=== PATIENT | male | born 1955 | race Caucasian/White ===

== ENCOUNTER → 2018-01-22 11:44 | Outpatient (CLI) | payer BC, SELFPAY ==
[2018-01-22 12:42] LABS: HCT 37.3 % (40.0-50.0); HGB 12.4 g/dL (13.5-17.5); Mean Corp. HGB Concentration 33.2 g/dL (32.0-36.0); Mean Corpuscular Hemoglobin 31.6 pg (27.0-33.0); Mean Corpuscular Volume 95.2 fL (80-95); Mean Platelet Volume 11.1 fL (8.0-11.0); Platelet Count 205 x1000/uL (130-400); RBC 3.92 m/cumm (4.50-6.00); RBC Distribution Width 12.9 % (11.8-14.1); White Blood Cell Count 6.08 k/cumm (4.4-10.8)
== END ==
PROVIDERS: PCP Emergency Medicine; Visit Provider Emergency Medicine
DX: D64.9 Anemia, unspecified (principal)
CPT/HCPCS: 36415; 85027

== ENCOUNTER 2018-04-15 15:33 | Outpatient (REF) | payer BC, SELFPAY ==
[2018-04-15 19:37] LABS: Bilirubin Negative (Negative); Blood Trace-intact (Negative); Clarity Clear; Glucose Negative (Negative); Ketones Negative (Negative); Leukocyte Esterase Negative (Negative); Nitrite Negative (Negative); Specific Gravity 1.025 (1.005-1.025); Urobilinogen 0.2 EU/dL (Up TO 0.2)
[2018-04-15 20:16] LABS: Bacteria Negative HPF (Negative); C & S Indicated? No; Casts Negative LPF (Negative); Crystals Negative HPF (Negative); Epithelial Cells Negative HPF (Negative); Mucus Negative (Negative); Other Cells Negative (Negative); RBC Negative (0-2); WBC Negative HPF (0-5)
== END 2018-04-15 15:53 ==
LOC: LBN 15:33
PROVIDERS: PCP Emergency Medicine; Visit Provider Emergency Medicine
DX: R31.9 Hematuria, unspecified (principal)
CPT/HCPCS: 81003; 81015

== ENCOUNTER 2019-04-13 14:21 | Inpatient (IN) | payer MEDICARE, BC, SELFPAY ==
[2019-04-13] VITALS (47 sets, daily range): BP systolic 131–179; BP diastolic 77–107; PULSE 79–120; RESP 11–26; TEMP 36.4–37.4; O2SAT 89–98
[2019-04-13] MEDS: Lactated Ringers 1,000 ML 1000 ML IV (14:45)
[2019-04-13] MEDS: LORazepam 2 MG/ML VIAL 1 MG IVP ×2 (14:47→15:06)
[2019-04-13 15:10] LABS: Abs Immature Grans 0.01 k/cumm (0.0-0.09); Absolute Basophil Count 0.02 k/cumm (0.0-0.2); Absolute Eosinophil Count 0.01 k/cumm (0.0-0.7); Absolute Lymphocyte Count 0.18 k/cumm (1.2-3.4); Absolute Monocyte Count 0.22 k/cumm (0.11-0.7); Absolute Neutrophil Count 3.96 k/cumm (1.2-6.7); Basophils % 0.5; Eosinophils % 0.2; HGB 12.8 g/dL (13.5-17.5); Immature Grans % 0.2; Lymphocytes % 4.1; Mean Corp. HGB Concentration 34.6 g/dL (32.0-36.0); Mean Corpuscular Hemoglobin 32.3 pg (27.0-33.0); Mean Corpuscular Volume 93.4 fL (80-95); Mean Platelet Volume 10.5 fL (8.0-11.0); Platelet Count 135 x1000/uL (130-400); RBC 3.96 m/cumm (4.50-6.00); RBC Distribution Width 13.1 % (11.8-14.1)
[2019-04-13 15:23] LABS: ALT 115 U/L (16-63); AST 181 U/L (15-37); Albumin 3.6 g/dL (3.4-5.0); Alkaline Phosphatase 154 U/L (46-116); Anion Gap 18.4 mmol/L (3-11); BUN 22 mg/dL (7-18); Bilirubin, Total 0.7 mg/dL (0.2-1.0); CO2 17.6 mmol/L (21.0-32.0); CREATININE 1.81 mg/dL (0.70-1.30); Calcium 8.5 mg/dL (8.5-10.1); Chloride 101 mmol/L (98-107); Estimated GFR 37.81 (mL/min/1.73m2); Glucose 100 mg/dL (70-100); Potassium 3.6 mmol/L (3.5-5.1); Sodium 137 mmol/L (136-145); Total Protein 7.7 g/dL (6.4-8.2)
--- NOTE | 2019-04-13 15:27 | ED.GENADUL_ITS ---
Discharge Plan Disposition Condition: Stable Discharge Details Chief Complaint: ETOHWithdr Admit Date/Time: 04/13/19 17:20 Admit Provider: Peg Everett Attending Provider: Peg Everett Primary Care Provider: Jovani Wharton ED Provider: Cristine Stuart Discharge Instructions Activity:: Activity as Tolerated Diet:: As Tolerated Discharge Orders Discharge Orders: Discharge Order (Routine); Ordered 04/15/19 Ordered By: Sarah Trujillo Discharge Data Discharge Date/Time-TO BE ENTERED AT DEPARTURE: 04/13/19 18:08 Medical Decision Making Mathew Mendez is a 64 y/o man with history of hypertension, hyperlipidemia, renal insufficiency, alcohol use disorder who presented to the emergency department with alcohol withdrawal after drinking 1 gallon of vodka per day for at least a week and likely much longer, possibly months, last drink last night. On exam patient is well and nontoxic appearing but is mildly anxious, no apparent tremor, no neurologic deficit patient is hypertensive and borderline tachycardic. Concern for metabolic/lyte derangement, dehydration, alcohol withdrawal. Plan for screening labs, IV fluid hydration, 2 mg IV Ativan, telemetry. Will monitor and reassess. Labs reviewed, patient with anion gap acidosis, UA not resulted but likely alcoholic ketoacidosis, creatinine elevated from baseline. I discussed the patient with a hospitalist for admission, hospitalist and care management concerned that patient may be more appropriate for acute detox treatment at [facility] rather than as an inpatient in the hospital. Care management is placing a referral to [place]. Patient with CIWA score of 9 indicating moderate alcohol withdrawal. Given renal failure, abnormal electrolytes, plan for admission here with possible transfer to [facility] after improvement. Clinical impression: Alcohol withdrawal, renal insufficiency Disposition: [facility] inpatient Medical Records Medical records reviewed: Yes I reviewed the patient's medical records. Lab Data Lab results reviewed: Yes I reviewed the patient's lab results. HPI General Mode of arrival: ambulatory . Date/Time Provider Initiated Documentation: 04/13/19 14:27 . Limitations to Documentation: no limitations . Information obtained by: patient, family, RN notes reviewed and old records reviewed . HPI Narrative: Mathew Mendez is a 64 y/o man with history of hypertension, hyperlipidemia, renal insufficiency, alcohol use disorder presenting to the emergency department with alcohol withdrawal. Patient is accompanied by his and son who also provide the history. Patient reports that he had been sober approximately 1 year ago, but began drinking again. It is unclear how long patient has been drinking for, but patient reports that his has been away over the past week and he has been drinking 1 gallon of vodka per day over the past week. Patient has had a long history with alcoholism, and did have to be admitted to the hospital for alcohol withdrawal once in the past. No history of seizures with withdrawal. Last drink was last night. Patient reports feeling shaky and anxious. Had dry heaves and diarrhea last night and this morning, which is not unusual for him. He denies pain, fever, vomiting, numbness, weakness, rash, shortness of breath, cough. Related Data Home Medications Medication Instructions Recorded Confirmed allopurinol 100 mg tablet 100 mg PO DAILY #90 tab-cap 04/15/18 04/13/19 lansoprazole 30 mg capsule,delayed 30 mg PO DAILY #90 tab-cap 04/15/18 04/13/19 release metoprolol succinate 100 mg 100 mg PO DAILY #90 tab 04/15/18 04/13/19 tablet,extended release 24 hr naltrexone 50 mg tablet 50 mg PO DAILY #90 tab-cap 04/15/18 04/13/19 amlodipine 5 mg tablet 5 mg PO DAILY #90 tab-cap 12/05/18 04/13/19 Previous Rx's Medication Instructions Recorded allopurinol 100 mg tablet 100 mg PO DAILY #90 tab-cap 04/15/18 lansoprazole 30 mg capsule,delayed 30 mg PO DAILY #90 tab-cap 04/15/18 release metoprolol succinate 100 mg 100 mg PO DAILY #90 tab 04/15/18 tablet,extended release 24 hr naltrexone 50 mg tablet 50 mg PO DAILY #90 tab-cap 04/15/18 amlodipine 5 mg tablet 5 mg PO DAILY #90 tab-cap 12/05/18 Allergies Allergy/AdvReac Type Severity Reaction Status Date / Time morphine Allergy Intermediate HIVES/RASH Verified 04/13/19 14:34 General Stated Complaint: ETOHWithdr VICTORIA: 2 Review of Systems Narrative: Constitutional: denies fevers, reports shakiness Eyes: denies eye pain ENT: denies facial pain, dental pain, sore throat Cardiovascular: denies chest pain Respiratory: denies SOB, cough GI: denies abdominal pain, vomiting, reports nausea, diarrhea : denies flank pain MSK: denies back pain, neck pain, arthralgias, myalgias Skin: denies rash Neuro: denies headaches, numbness, weakness [facility] Medical History Alcohol abuse (Chronic) Gout (Chronic) Hyperlipidemia (Chronic) Hypertension (Chronic) Lumbar spondylosis (Chronic) Reflux esophagitis (Chronic 09/24/95) GERD in excess of 20 years. on PPI that entire time ?esophageal stricture Renal insufficiency (Chronic 10/17/16) Surgical History H/O partial resection of colon (Inactive) s/p ostomy reversal Replacement of total knee joint 2012-RIGHT STRESS TEST (~01/2003) Family History Mother Breast cancer Father Heart disease Hyperlipidemia Sister Alcohol abuse Depression Sister Alcohol abuse Sister No problems noted. Brother Hyperlipidemia Brother No problems noted. Brother No problems noted. Brother No problems noted. Brother No problems noted. Maternal Grandfather No problems noted. Paternal Grandfather Alcohol abuse Hyperlipidemia Maternal Grandmother Alcohol abuse Paternal Grandmother Hyperlipidemia Stroke Son Testicular cancer Son No problems noted. Son No problems noted. Son No problems noted. Social History Smoking/Tobacco Use Status: Never Alcohol Intake: current Alcohol Intake frequency: 3 or more drinks per day Alcohol type: other Counseling given: Yes Drug use: Never Substance use type: former substance user and marijuana Household members: spouse current occupation: [employer] Pets and animals: Yes Pets and animals: dog(s) Duration: > 90 minutes/day Frequency: daily Hoa/Pentecostalism: Baptist Special hoa needs: No Do you feel safe at home: Yes Do you feel safe in your relationship?: Yes Exam Narrative Exam Narrative: Constitutional: well and [id number], pleasant, conversing normally, mildly anxious HENT: head atraumatic/normocephalic/normal inspection, mucous membranes dry Eyes: conjunctiva normal, sclera normal, pupils 3mm b/l Neck: no stridor, normal ROM, trachea midline Chest: normal inspection Resp: normal work of breathing, LCTAB Cardio: normal rate, normal rhythm, no murmur appreciated GI: abdomen soft, non-tender, non-distended Back: normal inspection, no rash Skin: warm, dry, normal color, no rash Neuro: alert, not altered, grossly non-focal, normal tone. Faint tremulousness to bilateral hands when arms extended, no asterixis Ext: no edema Psych: normal mood, normal affect, normal behavior Course Vital Signs Vital signs: Vital Signs Temperature 37.4 C 04/13/19 14:29 Pulse 95 H 04/13/19 14:29 Respiratory Rate 22 04/13/19 14:29 Blood Pressure 172/100 H 04/13/19 14:29 Pulse Oximetry 96 04/13/19 14:29 Temperature 37.4 C 04/13/19 14:29 Temperature Source Skin 04/13/19 14:29 Pulse 95 H 04/13/19 14:29 Respiratory Rate 22 04/13/19 14:29 Respiratory Effort Non-Labored 04/13/19 14:34 Respiratory Pattern Normal 04/13/19 14:49 Blood Pressure 172/100 H 04/13/19 14:29 Blood Pressure Position Supine 04/13/19 14:29 Pulse Oximetry 96 04/13/19 14:29 Oxygen Delivery Method Room Air 04/13/19 14:29 Oxygen Flow Rate 0 04/13/19 14:29 Pain Level 0 04/13/19 14:29 Lab/Test Results Lab/Test Results: Laboratory Tests Range/Units 04/13/19 04/13/19 14:35 14:35 WBC (4.4-10.8) k/cumm 4.40 RBC (4.50-6.00) m/cumm 3.96 L Hgb (13.5-17.5) g/dL 12.8 L Hct (40.0-50.0) % 37.0 L MCV (80-95) fL 93.4 MCH (27.0-33.0) pg 32.3 MCHC (32.0-36.0) g/dL 34.6 RDW (11.8-14.1) % 13.1 Plt Count (130-400) x1000/uL 135 MPV (8.0-11.0) fL 10.5 Immature Gran % 0.2 Neutrophils % 90.0 Lymphocytes % 4.1 Monocytes % 5.0 Eosinophils % 0.2 Basophils % 0.5 Absolute Neutrophils (1.2-6.7) k/cumm 3.96 Absolute Lymphocytes (1.2-3.4) k/cumm 0.18 L Absolute Monocytes (0.11-0.7) k/cumm 0.22 Absolute Eosinophils (0.0-0.7) k/cumm 0.01 Absolute Basophils (0.0-0.2) k/cumm 0.02 Sodium (136-145) mmol/L 137 Potassium (3.5-5.1) mmol/L 3.6 Chloride (98-107) mmol/L 101 Carbon Dioxide (21.0-32.0) mmol/L 17.6 L Anion Gap (3-11) mmol/L 18.4 H BUN (7-18) mg/dL 22 H Creatinine (0.70-1.30) mg/dL 1.81 H Estimated GFR/1.73 m2 (mL/min/1.73m2) 37.81 Glucose (70-100) mg/dL 100 Calcium (8.5-10.1) mg/dL 8.5 Total Bilirubin (0.2-1.0) mg/dL 0.7 AST (15-37) U/L 181 H ALT (16-63) U/L 115 H Alkaline Phosphatase (46-116) U/L 154 H Total Protein (6.4-8.2) g/dL 7.7 Albumin (3.4-5.0) g/dL 3.6
[2019-04-13 15:47] LABS: Magnesium 1.8 mg/dL (1.8-2.4); Vitamin B12 658 pg/mL (193-986)
[2019-04-13] MEDS: LORazepam 2 MG/ML VIAL IVP ×2 (15:49→16:16)
[2019-04-13 16:26] LABS: Bilirubin Negative (Negative); Blood Small (Negative); Clarity Clear (Clear); Glucose Negative (Negative); Ketones Trace mg/dL (Negative); Leukocyte Esterase Negative (Negative); Nitrite Negative (Negative); Urobilinogen 0.2 EU/dL (Up TO 0.2)
[2019-04-13 16:46] LABS: WBC Negative HPF (0-5)
[2019-04-13 16:47] LABS: Bacteria Negative HPF (Negative); C & S Indicated? No; Casts Negative LPF (Negative); Crystals Negative HPF (Negative); Epithelial Cells Negative HPF (Negative); Mucus Negative (Negative)
[2019-04-13] MEDS: diazePAM 5 MG TAB PO (17:18)
--- NOTE | 2019-04-13 17:27 | W.PM.HP.N ---
Date of service: 04/13/19 Time of Service: 16:20 Assessment and Plan Assessment and plan (1) Alcohol withdrawal: Status: Acute Assessment and plan: The highest CIWA score the patient had in the ED was 9, but he did receive IV ativan in the ED. Right now, the patient looks too stable for ICU, but certainly he would be a low threshold for transfer there. Monitor on CIWA with PO ativan. Bolus IV thiamine, start banana bag. (2) Alcoholic ketoacidosis: Status: Acute Assessment and plan: Hydrate and recheck labs in am (3) Alcohol abuse: Status: Chronic Assessment and plan: Care management already made a referral to [facility] alcohol detoxification program - awaiting further news (4) Transaminitis: Status: Acute Assessment and plan: Check PT -INR. ? alcoholic hepatitis (5) Acute kidney injury superimposed on chronic kidney disease: Status: Acute Assessment and plan: Hold NSAIDs. Hydrate intravenously (6) GERD (gastroesophageal reflux disease): Status: Chronic Assessment and plan: Convert to IV PPI (given reports of dry heaving this morning, I question alcoholic gastritis) (7) Weight loss, unintentional: Status: Acute Assessment and plan: Likely related to alcohol abuse - however, outpatient malignancy workup is indicated (8) DVT prophylaxis: Status: Acute Assessment and plan: lovenox (9) Discharge planning issues: Status: Acute Assessment and plan: Full code Low threshold to transfer to ICU. Referral to [facility] made History of Present Illness History of Present Illness Chief Complaint: My drinking is out of control Narrative: Mr Mendez is a 64 year old male with PMHx of long standing alcohol abuse with history of prior alcohol withdrawal/DT's, but not seizures, as well as hypertension, hyperlipidemia (not on medications), CKD III, Hiatal hernia/GERD, and chronic back pain, whose last drink was reportedly at 6 pm yesterday whom the [facility] hospitalists were asked to admit for alcohol withdrawal. The patient is able to stay awake only through part of the interview, and much of the information is being collected through his . Per her, she had been away for 11 days, and it was obvious to her when they would speak on the phone that while she was gone, he had been drinking. The patient estimates the amount of daily consumption as 6 shots of vodka per day, but per family, it may be more like a half of a gallon of vodka per day. The patient had an emotional episode yesterday, breaking down into tears, when he realized that because of his drinking, he would not be ready/able to go on an important business trip. The patient did verbalize readiness to quit drinking. He was feeling dizzy, tremulous, having dry heaving and nausea this morning. His CIWA score in the ED was estimated to be 9, then after medication with ativan it was 4. He received a total of 4 mg of IV ativan in the ED, but is able to take PO. Review of Systems Narrative: 12 systems reviewed. Pertinent positives and negatives are as per HPI. In addition, the patient denies chest pain, endorses occasional pain from his hiatal hernia, denies shortness of breath/cough, denies abdominal pain, denies blood in stool, denies urinary issues, denies unsteady gait unless he is drinking. Endorses unintentional 20 lb weight loss in 8 months, citing decreased food intake while drinking. Per , he had not been hallucinating, but had been confused - this is while he was still under influence, she believes. [facility] Medical History (Updated 04/13/19 @ 17:55 by Peg Everett MD) Alcohol abuse (Chronic) Gout (Chronic) Hyperlipidemia (Chronic) Hypertension (Chronic) Lumbar spondylosis (Chronic) Reflux esophagitis (Chronic 09/24/95) GERD in excess of 20 years. on PPI that entire time ?esophageal stricture Renal insufficiency (Chronic 10/17/16) Surgical History (Updated 04/13/19 @ 17:37 by Peg Everett MD) H/O partial resection of colon (Inactive) s/p ostomy reversal Replacement of total knee joint 2012-RIGHT STRESS TEST (~01/2003) Family History (Updated 04/16/18 @ 09:22 by Elena Liao) Mother Breast cancer Father Heart disease Hyperlipidemia Sister Alcohol abuse Depression Sister Alcohol abuse Sister No problems noted. Brother Hyperlipidemia Brother No problems noted. Brother No problems noted. Brother No problems noted. Brother No problems noted. Maternal Grandfather No problems noted. Paternal Grandfather Alcohol abuse Hyperlipidemia Maternal Grandmother Alcohol abuse Paternal Grandmother Hyperlipidemia Stroke Son Testicular cancer Son No problems noted. Son No problems noted. Son No problems noted. Social History (Updated 04/13/19 @ 17:37 by Peg Everett MD) Smoking/Tobacco Use Status: Never Alcohol Intake: current Alcohol Intake frequency: 3 or more drinks per day Alcohol type: other Counseling given: Yes Drug use: Never Substance use type: former substance user and marijuana Household members: spouse current occupation: [employer] Pets and animals: Yes Pets and animals: dog(s) Duration: > 90 minutes/day Frequency: daily Hoa/Zoroastrianism: Yazdanism Special hoa needs: No Do you feel safe at home: Yes Do you feel safe in your relationship?: Yes Meds Home Medications and Allergies Home Medications Medication Instructions Recorded Confirmed Type allopurinol 100 mg tablet 100 mg PO DAILY #90 tab-cap 04/15/18 04/13/19 Rx lansoprazole 30 mg capsule,delayed 30 mg PO DAILY #90 tab-cap 04/15/18 04/13/19 Rx release metoprolol succinate 100 mg 100 mg PO DAILY #90 tab 04/15/18 04/13/19 Rx tablet,extended release 24 hr naltrexone 50 mg tablet 50 mg PO DAILY #90 tab-cap 04/15/18 04/13/19 Rx cbd cap 1 cap PO DAILY 08/15/18 08/15/18 History amlodipine 5 mg tablet 5 mg PO DAILY #90 tab-cap 12/05/18 04/13/19 Rx celecoxib 200 mg capsule 200 mg PO DAILY #30 cap 02/05/19 04/13/19 Rx Allergies Allergy/AdvReac Type Severity Reaction Status Date / Time morphine Allergy Intermediate HIVES/RASH Verified 04/13/19 14:34 Exam Narrative Exam Narrative: General: Somnolent middle-aged male, slightly tremulous, Falls asleep after every question I try to ask him, easily arousable, seemingly A&Ox3 at that time, difficulty providing exact answers to some questions. Neurological: Mildly tremulous, somnolent, no obvious focal deficits Psychiatric: difficult to assess given patient's mental status Skin: visible skin intact HEENT: Atraumatic, normocephalic, EOMI, dry MM, clear oropharynx, no submandibular or cervical lymphadenopathy, no goiter or JVD Cardiovascular: RRR, no m/r/g Lungs: CTAB Gastrointestinal: abdomen is soft, nontender, nondistended Genitourinary: deferred Extremities: no e/c/c BLE's; well-healed RTK scar Results Labs Result diagrams: 04/13/19 14:35 04/13/19 14:35 Labs: Laboratory Results - last 24 hr 04/13/19 04/13/19 04/13/19 14:35 14:35 14:35 WBC 4.40 RBC 3.96 L Hgb 12.8 L Hct 37.0 L MCV 93.4 MCH 32.3 MCHC 34.6 RDW 13.1 Plt Count 135 MPV 10.5 Immature Gran % 0.2 Neutrophils % 90.0 Lymphocytes % 4.1 Monocytes % 5.0 Eosinophils % 0.2 Basophils % 0.5 Absolute Neutrophils 3.96 Absolute Lymphocytes 0.18 L Absolute Monocytes 0.22 Absolute Eosinophils 0.01 Absolute Basophils 0.02 Sodium 137 Potassium 3.6 Chloride 101 Carbon Dioxide 17.6 L Anion Gap 18.4 H BUN 22 H Creatinine 1.81 H Estimated GFR/1.73 m2 37.81 Glucose 100 Calcium 8.5 Magnesium 1.8 Total Bilirubin 0.7 AST 181 H ALT 115 H Alkaline Phosphatase 154 H Total Protein 7.7 Albumin 3.6 Vitamin B12 658 Urine Color Urine Clarity Urine pH Ur Specific [place] Urine Protein Urine Ketones Urine Blood Urine Nitrite Urine Bilirubin Urine Urobilinogen Ur Leukocyte Esterase Urine RBC Urine WBC Ur Epithelial Cells Urine Crystals Urine Bacteria Urine Casts Urine Mucus Ur Culture Indicated? Urine Glucose 04/13/19 16:17 WBC RBC Hgb Hct MCV MCH MCHC RDW Plt Count MPV Immature Gran % Neutrophils % Lymphocytes % Monocytes % Eosinophils % Basophils % Absolute Neutrophils Absolute Lymphocytes Absolute Monocytes Absolute Eosinophils Absolute Basophils Sodium Potassium Chloride Carbon Dioxide Anion Gap BUN Creatinine Estimated GFR/1.73 m2 Glucose Calcium Magnesium Total Bilirubin AST ALT Alkaline Phosphatase Total Protein Albumin Vitamin B12 Urine Color Yellow Urine Clarity Clear Urine pH 7.0 Ur Specific [place] 1.020 Urine Protein 100 H Urine Ketones Trace H Urine Blood Small H Urine Nitrite Negative Urine Bilirubin Negative Urine Urobilinogen 0.2 Ur Leukocyte Esterase Negative Urine RBC Urine WBC Negative Ur Epithelial Cells Negative Urine Crystals Negative Urine Bacteria Negative Urine Casts Negative Urine Mucus Negative Ur Culture Indicated? No Urine Glucose Negative Last Vital Signs Temp 37.4 C 04/13/19 14:29 Pulse 89 04/13/19 17:00 Resp 19 04/13/19 17:00 BP 154/94 H 04/13/19 17:00 Pulse Ox 92 L 04/13/19 17:00
[2019-04-13 17:52] LABS: ETHANOL BLOOD < 3.0 mg/dL (<3)
[2019-04-13] MEDS: Normal Saline 1,000 ML 125 ML IV (18:52)
[2019-04-13] MEDS: Normal Saline Flush 10 ML SYR IVP (18:52)
[2019-04-13] MEDS: Pantoprazole 40 MG VIAL IVP (19:00)
[2019-04-13] MEDS: THIAMINE 100 MG in Normal Saline 100 ML 200 MG IVPB (19:00)
[2019-04-14] VITALS (11 sets, daily range): BP systolic 137–159; BP diastolic 83–98; PULSE 78–95; RESP 16–19; TEMP 36.6–37.4; O2SAT 91–97
[2019-04-14] MEDS: MULTIVITAMIN 10 ML, THIAMINE 100 MG, FOLIC ACID 1 MG in DEXTROSE 5%-0.45% SALINE 1,000 ML 125 ML IV (04:20)
[2019-04-14 07:12] LABS: Abs Immature Grans 0.01 k/cumm (0.0-0.09); Absolute Basophil Count 0.02 k/cumm (0.0-0.2); Absolute Eosinophil Count 0.08 k/cumm (0.0-0.7); Absolute Lymphocyte Count 0.34 k/cumm (1.2-3.4); Absolute Monocyte Count 0.41 k/cumm (0.11-0.7); Absolute Neutrophil Count 2.95 k/cumm (1.2-6.7); Basophils % 0.5; Eosinophils % 2.1; HCT 35.4 % (40.0-50.0); HGB 12.2 g/dL (13.5-17.5); Immature Grans % 0.3; Lymphocytes % 8.9; Mean Corp. HGB Concentration 34.5 g/dL (32.0-36.0); Mean Corpuscular Hemoglobin 32.4 pg (27.0-33.0); Mean Corpuscular Volume 93.9 fL (80-95); Mean Platelet Volume 11.2 fL (8.0-11.0); Monocytes % 10.8; Neutrophils % 77.4; Platelet Count 128 x1000/uL (130-400); RBC 3.77 m/cumm (4.50-6.00); RBC Distribution Width 12.9 % (11.8-14.1); White Blood Cell Count 3.81 k/cumm (4.4-10.8)
[2019-04-14 07:29] LABS: ALT 82 U/L (16-63); AST 94 U/L (15-37); Albumin 2.9 g/dL (3.4-5.0); Alkaline Phosphatase 123 U/L (46-116); Anion Gap 10.5 mmol/L (3-11); BUN 17 mg/dL (7-18); Bilirubin, Direct 0.14 mg/dL (0.00-0.20); Bilirubin, Total 0.5 mg/dL (0.2-1.0); CO2 23.5 mmol/L (21.0-32.0); CREATININE 1.35 mg/dL (0.70-1.30); Calcium 8.1 mg/dL (8.5-10.1); Chloride 101 mmol/L (98-107); Estimated GFR 53.04 (mL/min/1.73m2); Glucose 101 mg/dL (70-100); INR 0.9 (0.9-1.1); Magnesium 1.5 mg/dL (1.8-2.4); Potassium 3.3 mmol/L (3.5-5.1); Prothrombin Time 9.3 sec (9.3-11.0); Sodium 135 mmol/L (136-145); Total Protein 6.3 g/dL (6.4-8.2)
[2019-04-14 07:59] LABS: Folate 12.6 ng/mL (8.6-20.0)
[2019-04-14] MEDS: Naltrexone 50 MG TAB PO (09:12)
[2019-04-14] MEDS: Allopurinol 100 MG TAB PO (09:12)
[2019-04-14] MEDS: Metoprolol CR 100 MG TABCR PO (09:12)
[2019-04-14] MEDS: Potassium Chloride 20 MEQ TABCR 40 MEQ PO (09:12)
[2019-04-14] MEDS: amLODIPine 5 MG TAB PO (09:12)
[2019-04-14] MEDS: MAGNESIUM SULFATE 4 GM/100 ML BAG IVPB (09:12)
[2019-04-14] MEDS: Enoxaparin 40 MG/0.4 ML SYR SC (09:12)
--- NOTE | 2019-04-14 10:47 | INITIAL_ITS ---
- If Service Date Differs Date of service: 04/14/19 Time of Service: 10:47 Care Management Initial Assess REASON FOR HOSPITALIZATION:: ETOH, withdrawal, ETOH Ketoacidosis PAST MEDICAL HISTORY/PAST SURGICAL HISTORY:: ETOH abuse, renal insufficiency, hypertension, hyperlipidemia and GERD. PREVIOUS FUNCTIONAL STATUS/SOCIAL/FAMILY SUPPORTS:: Mathew lives with his spouse Yen in [place], [place]. 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 His children are grown and provide support locally. CURRENT FUNCTIONAL STATUS:: Mathew is engaged he states that he wants to stop using alcohol and is willing to engaged with substance abuse services. CM has reviewed options with Mathew and his spouse including [facility] and [facility]. Mathew also met with high school coach today and is considering IOP services through [facility]. He has a sponser who he is reaching out to today. ADVANCE DIRECTIVES:: DPOA on file Yen is his agent (spouse) Has patient been provided with information about the portal?: Yes Did the patient sign up for the portal?: Yes CODE STATUS:: Full Code INSURANCE COVERAGE / FINANCIAL ISSUES:: Medicare and BCBS CURRENT HOME/COMMUNITY SERVICES/EQUIPMENT:: None at this time PRIMARY CARE PHYSICIAN:: POTENTIAL DISCHARGE NEEDS:: Referral to inpatient treatment center vs Outpatient treatment program and community resources. PATIENT/FAMILY EDUCATION NEEDS:: Education, treatment options, medication management and withdrawal management. Education related to discharge planning, disposition and follow up plan of care. ANTICIPATED BARRIERS TO DISCHARGE:: [facility] and bed availability. TRANSPORTATION:: Via private car with spouse or family PLAN:: Mathew continues to receive medical management of ETOH withdrawal. [facility] has accepted him and will complete provider to provider and nurse to nurse on Saturday. Patient has not agreed to the transfer at this time. CM to continue to provide support discharge planning and disposition.
--- NOTE | 2019-04-14 16:08 | CHAPLAIN ---
I introduced myself to Mathew and his , explained my role and offered support. Mathew is a member of [employer]. I let him know that we could contact the shinto if he was interested in a visit from one of the priests.
[2019-04-14] MEDS: Normal Saline Flush 10 ML SYR IVP (17:10)
[2019-04-14] MEDS: Pantoprazole 40 MG VIAL IVP (17:10)
[2019-04-14] MEDS: Normal Saline 1,000 ML 125 ML IV (17:11)
--- NOTE | 2019-04-14 17:27 | W.PM.PROGNOT ---
Date of Service Date of service: 04/14/19 Time of Service: 17:27 Assessment and Plan Assessment and plan (1) Alcohol withdrawal: Status: Acute Assessment and plan: CIWA scores as high as 2. Does not feel like his is in acute withdrawal, does not appear to be on exam. Continue to monitor on CIWA protocol, ativan per protocol. Last alcoholic drink was 2 days ago. Continue Banana bag alternating with NS, decrease rate to 75 cc/hr. Care management is working on disposition, has been accepted at [facility]. (2) Alcoholic ketoacidosis: Status: Acute Assessment and plan: Anion gap improved. Renal function at baseline. Continue to follow chemistry. (3) Alcohol abuse: Status: Chronic Assessment and plan: As above, has been accepted at [facility]. Has been seen by assistant wrestling coach. Has sponsor from . Continue to encourage abstinence from alcohol. Continue Naltrexone per home dosing. (4) Transaminitis: Status: Acute Assessment and plan: LFTs improving. Does not appear to be alcoholic hepatitis. INR normal at 0.9. Repeat LFTs in the morning. (5) Acute kidney injury superimposed on chronic kidney disease: Status: Acute Assessment and plan: Creatinine at baseline. Continue to follow BMP. (6) GERD (gastroesophageal reflux disease): Status: Chronic Assessment and plan: No reports of abdominal pain or vomiting today. Continue IV PPI. (7) Weight loss, unintentional: Status: Acute Assessment and plan: Likely related to alcohol abuse. Will need outpatient malignancy workup. (8) DVT prophylaxis: Status: Acute Assessment and plan: Subcutaneous lovenox. (9) Hypomagnesemia: Status: Acute Assessment and plan: Replete and monitor. (10) Hypokalemia: Status: Acute Assessment and plan: Replete and monitor. (11) Discharge planning issues: Status: Acute Assessment and plan: He is a FULL CODE. Care management is working on disposition. He is agreeing to inpatient rehab at this time. This case was discussed with Dr. Everett who is in agreement. Subjective Subjective Interval history since last seen: Mathew Mendez reports doing well from an alcohol withdrawal standpoint. He denies headaches, shaking, dizziness, diaphoresis, nausea, vomiting, diarrhea. He feels mildly anxious related to going to rehab, but he states he has made up his mind and he is going to rehab. His is present and supportive. He has been in contact with his sponsor. He met with a sustainability coach today. He is eating and drinking and tolerating his diet. He denies shortness of breath, coughing, wheezing, chest pain/pressure, palpitations, or lower extremity edema. Exam Narrative Exam Narrative: General: middle aged man, appears stated age, alert and oriented, in NAD. Does not appear to be diaphoretic or tremulous. Psychiatric: appears mildly anxious. HEENT: Feroz complexion, atraumatic, normocephalic, pupils symmetrical and round, EOMI, mucous membranes moist. Neck: supple. No JVD. Cardiovascular: regular rate and rhythm, no murmur appreciated. Respiratory: respirations even and unlabored, lung sounds clear to auscultation bilaterally. GI: normoactive bowel sounds, abdomen soft, nontender on palpation, nondistended. Extremities: no clubbing, cyanosis or edema. Objective Objective Clinical Data: Abnormal lab results 04/13/19 04/14/19 04/14/19 Range/Units 14:35 06:10 06:10 WBC 3.81 L (4.4-10.8) k/cumm RBC 3.77 L (4.50-6.00) m/cumm Hgb 12.2 L (13.5-17.5) g/dL Hct 35.4 L (40.0-50.0) % Plt Count 128 L (130-400) x1000/uL MPV 11.2 H (8.0-11.0) fL Absolute Lymphocytes 0.34 L (1.2-3.4) k/cumm Sodium 135 L (136-145) mmol/L Potassium 3.3 L (3.5-5.1) mmol/L Carbon Dioxide 17.6 L (21.0-32.0) mmol/L Anion Gap 18.4 H (3-11) mmol/L BUN 22 H (7-18) mg/dL Creatinine 1.81 H 1.35 H (0.70-1.30) mg/dL Glucose 101 H (70-100) mg/dL Calcium 8.1 L (8.5-10.1) mg/dL Magnesium 1.5 L (1.8-2.4) mg/dL AST 181 H 94 H (15-37) U/L ALT 115 H 82 H (16-63) U/L Alkaline Phosphatase 154 H 123 H (46-116) U/L Total Protein 6.3 L (6.4-8.2) g/dL Albumin 2.9 L (3.4-5.0) g/dL Vital Signs Temperature 37.0 C 04/14/19 14:00 Temperature Source Tympanic 04/14/19 14:00 Pulse 82 04/14/19 14:00 Pulse Rhythm Regular 04/14/19 11:31 Pulse 88 04/13/19 18:02 Respiratory Rate 17 04/14/19 14:00 Respiratory Effort Non-Labored 04/14/19 11:31 Respiratory Depth Normal 04/14/19 11:31 Respiratory Pattern Normal 04/14/19 11:31 Blood Pressure 143/88 H 04/14/19 14:00 Blood Pressure Mean 103 04/13/19 18:02 Blood Pressure Position Supine 04/13/19 14:29 Pulse Oximetry 94 L 04/14/19 14:00 Oxygen Delivery Method Room Air 04/14/19 14:00 Oxygen Flow Rate 0 04/14/19 14:00 Pain Level 0 04/14/19 14:00 Intake & Output 04/13/19 04/14/19 04/14/19 23:59 11:59 23:59 Intake Total 1260 / 1260 1351 / 1471 120 / 1471 Balance 1260 / 1260 1351 / 1471 120 / 1471 Weight 71.2 kg 62.7 kg Intake: IV 1010 / 1010 1101 / 1101 Oral 250 / 250 250 / 370 120 / 370 Other: Urine Color Yellow Urine Appearance Clear Clear Urine Odor None Voiding Methods Toilet Laboratory Results WBC 3.81 k/cumm (4.4-10.8) L 04/14/19 06:10 RBC 3.77 m/cumm (4.50-6.00) L 04/14/19 06:10 Hgb 12.2 g/dL (13.5-17.5) L 04/14/19 06:10 Hct 35.4 % (40.0-50.0) L 04/14/19 06:10 MCV 93.9 fL (80-95) 04/14/19 06:10 MCH 32.4 pg (27.0-33.0) 04/14/19 06:10 MCHC 34.5 g/dL (32.0-36.0) 04/14/19 06:10 RDW 12.9 % (11.8-14.1) 04/14/19 06:10 Plt Count 128 x1000/uL (130-400) L 04/14/19 06:10 MPV 11.2 fL (8.0-11.0) H 04/14/19 06:10 Immature Gran % 0.3 04/14/19 06:10 Neutrophils % 77.4 04/14/19 06:10 Lymphocytes % 8.9 04/14/19 06:10 Monocytes % 10.8 04/14/19 06:10 Eosinophils % 2.1 04/14/19 06:10 Basophils % 0.5 04/14/19 06:10 Absolute Neutrophils 2.95 k/cumm (1.2-6.7) 04/14/19 06:10 Absolute Lymphocytes 0.34 k/cumm (1.2-3.4) L 04/14/19 06:10 Absolute Monocytes 0.41 k/cumm (0.11-0.7) 04/14/19 06:10 Absolute Eosinophils 0.08 k/cumm (0.0-0.7) 04/14/19 06:10 Absolute Basophils 0.02 k/cumm (0.0-0.2) 04/14/19 06:10 PT 9.3 sec (9.3-11.0) 04/14/19 06:10 INR 0.9 (0.9-1.1) 04/14/19 06:10 Sodium 135 mmol/L (136-145) L 04/14/19 06:10 Potassium 3.3 mmol/L (3.5-5.1) L 04/14/19 06:10 Chloride 101 mmol/L (98-107) 04/14/19 06:10 Carbon Dioxide 23.5 mmol/L (21.0-32.0) 04/14/19 06:10 Anion Gap 10.5 mmol/L (3-11) 04/14/19 06:10 BUN 17 mg/dL (7-18) 04/14/19 06:10 Creatinine 1.35 mg/dL (0.70-1.30) H 04/14/19 06:10 Estimated GFR/1.73 m2 53.04 (mL/min/1.73m2) 04/14/19 06:10 Glucose 101 mg/dL (70-100) H 04/14/19 06:10 Calcium 8.1 mg/dL (8.5-10.1) L 04/14/19 06:10 Magnesium 1.5 mg/dL (1.8-2.4) L 04/14/19 06:10 Total Bilirubin 0.5 mg/dL (0.2-1.0) 04/14/19 06:10 Conjugated Bilirubin 0.14 mg/dL (0.00-0.20) 04/14/19 06:10 AST 94 U/L (15-37) H 04/14/19 06:10 ALT 82 U/L (16-63) H 04/14/19 06:10 Alkaline Phosphatase 123 U/L (46-116) H 04/14/19 06:10 Total Protein 6.3 g/dL (6.4-8.2) L 04/14/19 06:10 Albumin 2.9 g/dL (3.4-5.0) L 04/14/19 06:10 Vitamin B12 658 pg/mL (193-986) 04/13/19 14:35 Folate 12.6 ng/mL (8.6-20.0) 04/14/19 06:10 Urine Color Yellow (Yellow) 04/13/19 16:17 Urine Clarity Clear (Clear) 04/13/19 16:17 Urine pH 7.0 (5-8) 04/13/19 16:17 Ur Specific [place] 1.020 (1.005-1.025) 04/13/19 16:17 Urine Protein 100 mg/dL (Negative) H 04/13/19 16:17 Urine Ketones Trace mg/dL (Negative) H 04/13/19 16:17 Urine Blood Small (Negative) H 04/13/19 16:17 Urine Nitrite Negative (Negative) 04/13/19 16:17 Urine Bilirubin Negative (Negative) 04/13/19 16:17 Urine Urobilinogen 0.2 EU/dL (Up TO 0.2) 04/13/19 16:17 Ur Leukocyte Esterase Negative (Negative) 04/13/19 16:17 Urine RBC HPF (0-2) 04/13/19 16:17 Urine WBC Negative HPF (0-5) 04/13/19 16:17 Ur Epithelial Cells Negative HPF (Negative) 04/13/19 16:17 Urine Crystals Negative HPF (Negative) 04/13/19 16:17 Urine Bacteria Negative HPF (Negative) 04/13/19 16:17 Urine Casts Negative LPF (Negative) 04/13/19 16:17 Urine Mucus Negative (Negative) 04/13/19 16:17 Ur Culture Indicated? No 04/13/19 16:17 Urine Glucose Negative mg/dL (Negative) 04/13/19 16:17 Ethyl Alcohol < 3.0 mg/dL (<3) 04/13/19 14:35
[2019-04-14] MEDS: LORazepam 1 MG TAB PO/SL (18:34)
[2019-04-15] VITALS (7 sets, daily range): BP systolic 144–166; BP diastolic 85–95; PULSE 78–92; RESP 16–18; TEMP 36.8–37.5; O2SAT 92–99
[2019-04-15] MEDS: Normal Saline 1,000 ML 125 ML IV (00:49)
[2019-04-15 07:00] LABS: HCT 36.2 % (40.0-50.0); HGB 12.4 g/dL (13.5-17.5); Mean Corp. HGB Concentration 34.3 g/dL (32.0-36.0); Mean Corpuscular Volume 93.3 fL (80-95); Mean Platelet Volume 11.3 fL (8.0-11.0); Platelet Count 107 x1000/uL (130-400); RBC 3.88 m/cumm (4.50-6.00); RBC Distribution Width 12.8 % (11.8-14.1); White Blood Cell Count 3.92 k/cumm (4.4-10.8)
[2019-04-15 07:27] LABS: ALT 59 U/L (16-63); AST 60 U/L (15-37); Albumin 2.7 g/dL (3.4-5.0); Alkaline Phosphatase 117 U/L (46-116); Anion Gap 11.3 mmol/L (3-11); BUN 12 mg/dL (7-18); Bilirubin, Direct 0.14 mg/dL (0.00-0.20); Bilirubin, Total 0.5 mg/dL (0.2-1.0); CO2 20.7 mmol/L (21.0-32.0); CREATININE 1.36 mg/dL (0.70-1.30); Calcium 7.6 mg/dL (8.5-10.1); Chloride 101 mmol/L (98-107); Estimated GFR 52.59 (mL/min/1.73m2); Glucose 96 mg/dL (74-106); Magnesium 1.9 mg/dL (1.8-2.4); Potassium 3.7 mmol/L (3.5-5.1); Sodium 133 mmol/L (136-145); Total Protein 6.1 g/dL (6.4-8.2)
[2019-04-15] MEDS: Metoprolol CR 100 MG TABCR PO (07:54)
[2019-04-15] MEDS: amLODIPine 5 MG TAB PO (07:54)
[2019-04-15] MEDS: Allopurinol 100 MG TAB PO (07:54)
[2019-04-15] MEDS: Naltrexone 50 MG TAB PO (07:54)
[2019-04-15] MEDS: Enoxaparin 40 MG/0.4 ML SYR SC (07:55)
[2019-04-15] MEDS: MULTIVITAMIN 10 ML, THIAMINE 100 MG, FOLIC ACID 1 MG in DEXTROSE 5%-0.45% SALINE 1,000 ML 100 ML IV (08:37)
[2019-04-15] MEDS: LORazepam 1 MG TAB PO/SL (11:33)
--- NOTE | 2019-04-15 12:15 | NUR.NOTE ---
Nursing Note: Report phoned to Jose Luis at [facility], all questions answered.
--- NOTE | 2019-04-15 12:48 | W.PM.DS.N ---
Date of service: 04/15/19 Time of Service: 12:48 DS: Diagnosis Discharge Diagnosis (1) Alcohol withdrawal: Status: Acute (2) Alcoholic ketoacidosis: Status: Acute (3) Alcohol abuse: Status: Chronic (4) Transaminitis: Status: Acute (5) Acute kidney injury superimposed on chronic kidney disease: Status: Acute (6) GERD (gastroesophageal reflux disease): Status: Chronic (7) Weight loss, unintentional: Status: Acute (8) DVT prophylaxis: Status: Acute (9) Hypomagnesemia: Status: Acute (10) Hypokalemia: Status: Acute (11) Discharge planning issues: Status: Acute Discharge Plan Disposition Patient Disposition: [facility] Condition: Stable Discharge Details Chief Complaint: ETOHWithdr Reason For Visit: ALCOHOL WITHDRAWAL, ALCHOHOL KETOACIDOSIS Admit Date/Time: 04/13/19 17:20 Admit Provider: ePg Everett Attending Provider: Peg Everett Primary Care Provider: Jovani Wharton ED Provider: Cristine Stuart Hospital Course Hospital Course: Mathew Mendez is a very pleasant 64-year-old man with a long history of alcohol abuse as well as hypertension, hyperlipidemia, chronic kidney disease, stage III, hiatal hernia/GERD, and chronic back pain who presented to the emergency department on 04/13/2019 for alcohol withdrawal. He reported drinking approximately 1/2 gallon of vodka per day. His last drink was the evening prior to his presentation (04/12/2019). He has been through withdrawal in the past. At the time of his presentation he verbalized a desire to stop drinking, he was feeling dizzy, tremulous, nauseated with dry heaves. He was given Ativan in the emergency department. He was also noted on admission to have elevated liver enzymes and acute kidney injury superimposed on chronic kidney disease. He was admitted to the [facility] floor for observation and management of acute alcohol withdrawal as well as for placement after discharge for alcohol rehab. Over the following days, he received IV fluids, his renal function improved to baseline. His liver enzymes improved, but were still not back to normal at the time of discharge. There was no indication that he had alcoholic hepatitis. The day following his discharge, he did not appear to be in acute withdrawal, however as the day went on, he began to have increasing symptoms. His highest score on the day of discharge was a 6 for which he received Ativan. He was accepted at [facility] for the detox program. He will be discharged from the hospital today to [facility]. Care management is helping him connect with [facility], as he is interested in transfer to longer term treatment when he is discharged from [facility]. Due to his acute kidney injury, NSAIDs were withheld and will remain on hold at the time of discharge. He was on naltrexone prior to his admission to the hospital, he will remain on naltrexone at the time of discharge. He is discharged to [facility] today, his will transport him. Home Meds and New Rx's Prescriptions: Continued allopurinol 100 mg tablet 100 mg PO DAILY Qty: 90 RF: 3 lansoprazole [Prevacid] 30 mg capsule,delayed release(DR/EC) 30 mg PO DAILY Qty: 90 RF: 3 naltrexone 50 mg tablet 50 mg PO DAILY Qty: 90 RF: 3 metoprolol succinate 100 mg tablet extended release 24 hr 100 mg PO DAILY Qty: 90 RF: 3 amlodipine 5 mg tablet 5 mg PO DAILY Qty: 90 RF: 3 Discontinued cbd cap 10 mg capsule 1 cap PO DAILY RF: 0 celecoxib 200 mg capsule 200 mg PO DAILY Qty: 30 RF: 3 Discharge Instructions Instructions: Abuse of Alcohol (DC) Activity:: Activity as Tolerated Diet:: As Tolerated DS: Summary Status at Discharge Functional status at discharge: independent ambulation Overall status at discharge: patient is not back to baseline Mental Status: mental status grossly normal Speech and Movement: speech and movement normal Mood: congruent mood Affect: anxious affect Exam Narrative Exam Narrative: General: middle aged man, sitting up in chair, appears stated age, alert and oriented, in NAD. Does not appear to be diaphoretic or tremulous. Psychiatric: appears mildly anxious. HEENT: Feroz complexion, atraumatic, normocephalic, pupils symmetrical and round, EOMI, mucous membranes moist. Neck: supple. No JVD. Cardiovascular: regular rate and rhythm, no murmur appreciated. Respiratory: respirations even and unlabored, lung sounds clear to auscultation bilaterally. GI: normoactive bowel sounds, abdomen soft, nontender on palpation, nondistended. Extremities: no clubbing, cyanosis or edema. Psych Mental Status: mental status grossly normal Speech and Movement: speech and movement normal Mood: congruent mood Affect: anxious affect DS: Data Vitals/I&O Vitals and I&O: Vital Signs Temperature 37.1 C 04/15/19 07:20 Temperature Source Tympanic 04/15/19 07:20 Pulse 78 04/15/19 07:20 Pulse Rhythm Regular 04/15/19 08:00 Pulse 88 04/13/19 18:02 Respiratory Rate 18 04/15/19 07:20 Respiratory Effort Non-Labored 04/15/19 08:00 Respiratory Depth Normal 04/15/19 08:00 Respiratory Pattern Normal 04/15/19 08:00 Blood Pressure 166/87 H 04/15/19 07:20 Blood Pressure Mean 103 04/13/19 18:02 Blood Pressure Position Supine 04/13/19 14:29 Pulse Oximetry 99 04/15/19 07:20 Oxygen Delivery Method Room Air 04/15/19 07:20 Oxygen Flow Rate 0 04/15/19 07:20 Pain Level 0 04/15/19 07:20 Intake & Output 04/14/19 04/15/19 04/15/19 23:59 11:59 23:59 Intake Total 1431.2 / 2782.2 2254.167 / 2254.167 Balance 1431.2 / 2782.2 2254.167 / 2254.167 Weight 63 kg Intake: IV 1011.2 / 2112.2 1894.167 / 1894.167 Oral 420 / 670 360 / 360 Other: Urine Color Yellow Urine Appearance Clear Clear Urine Odor Normal Comment Patient voiding independently per Pt voided in toilet Voiding Methods Toilet Toilet Data Completed and Pending Labs on day of discharge: Labs from last 24 hours 04/15/19 04/15/19 06:10 06:10 WBC 3.92 L RBC 3.88 L Hgb 12.4 L Hct 36.2 L MCV 93.3 MCH 32.0 MCHC 34.3 RDW 12.8 Plt Count 107 L MPV 11.3 H Sodium 133 L Potassium 3.7 Chloride 101 Carbon Dioxide 20.7 L Anion Gap 11.3 H BUN 12 Creatinine 1.36 H Estimated GFR/1.73 m2 52.59 Glucose 96 Calcium 7.6 L Magnesium 1.9 Total Bilirubin 0.5 Conjugated Bilirubin 0.14 AST 60 H ALT 59 Alkaline Phosphatase 117 H Total Protein 6.1 L Albumin 2.7 L PFSH Medical History Alcohol abuse (Chronic) Gout (Chronic) Hyperlipidemia (Chronic) Hypertension (Chronic) Lumbar spondylosis (Chronic) Reflux esophagitis (Chronic 09/24/95) GERD in excess of 20 years. on PPI that entire time ?esophageal stricture Renal insufficiency (Chronic 10/17/16) Surgical History H/O partial resection of colon (Inactive) s/p ostomy reversal Replacement of total knee joint 2012-RIGHT STRESS TEST (~01/2003) Family History Mother Breast cancer Father Heart disease Hyperlipidemia Sister Alcohol abuse Depression Sister Alcohol abuse Sister No problems noted. Brother Hyperlipidemia Brother No problems noted. Brother No problems noted. Brother No problems noted. Brother No problems noted. Maternal Grandfather No problems noted. Paternal Grandfather Alcohol abuse Hyperlipidemia Maternal Grandmother Alcohol abuse Paternal Grandmother Hyperlipidemia Stroke Son Testicular cancer Son No problems noted. Son No problems noted. Son No problems noted. Social History Smoking/Tobacco Use Status: Never Alcohol Intake: current Alcohol Intake frequency: 3 or more drinks per day Alcohol type: other Counseling given: Yes Drug use: Never Substance use type: former substance user and marijuana Household members: spouse current occupation: [employer] Pets and animals: Yes Pets and animals: dog(s) Duration: > 90 minutes/day Frequency: daily Hoa/Catholic: Jew Special hoa needs: No Do you feel safe at home: Yes Do you feel safe in your relationship?: Yes
--- NOTE | 2019-04-15 18:41 | CMDISCH_ITS ---
- If Service Date Differs Date of service: 04/15/19 Time of Service: 18:42 LACE Index Scoring Tool - Questions: Length of Stay (in days): 3 Acuity (Admit via E.D.?): Yes Care Management Discharge Reason for Hospitalization: ETOH, withdrawal, ETOH Ketoacidosis Discharge Plan: Mathew is being discharged to for substance abuse treatment, his spouse will transfer him to the facility. Mathew would like to attend [facility] coordinated intake and contacted the pediatric social worker at and notifed them of the patients plan. Mathew has contacted his sponser and will follow up with him and the women's lacrosse coach after he is discharged from treatment center. Patient/Family Education Needs: Discharge education, limtations and follow plan of care. Provided contact information for community resources including IOP, therapist and other [facility] treatment centers.
== END 2019-04-15 14:25 | disposition short-term general hospital (02) | DRG 897 ==
LOC: ER 18:02 → MS 18:09
PROVIDERS: Admitting Provider Internal Medicine; Emergency Provider Student in an Organized Health Care Education/Training Program; PCP Emergency Medicine; Visit Provider Internal Medicine
DX: F10.239 Alcohol dependence with withdrawal, unspecified (principal); E87.2 Acidosis; N17.9 Acute kidney failure, unspecified; R74.0 Nonspecific elevation of levels of transaminase and lactic acid dehydrogenase [LDH]; K21.9 Gastro-esophageal reflux disease without esophagitis; K63.4 Enteroptosis; E83.42 Hypomagnesemia; E87.6 Hypokalemia; N18.3 Chronic kidney disease, stage 3 (moderate); I12.9 Hypertensive chronic kidney disease with stage 1 through stage 4 chronic kidney disease, or unspecified chronic kidney disease; E78.5 Hyperlipidemia, unspecified; Z75.1 Person awaiting admission to adequate facility elsewhere
CPT/HCPCS: 36415; 36416; 80048; 80053; 80076; 82962; 85027; 96361; 96374; 96375; 99223; 99232; 99239; 99285; J1650; 80320; 81003; 81015; 82607; 82746; 83735; 85025; 85610; 99284; J2060; J3475

== ENCOUNTER 2019-06-11 15:09 | Outpatient (CLI) | payer MEDICARE, BC, SELFPAY ==
[2019-06-11 15:39] LABS: Abs Immature Grans 0.01 k/cumm (0.0-0.09); Absolute Basophil Count 0.05 k/cumm (0.0-0.2); Absolute Eosinophil Count 0.44 k/cumm (0.0-0.7); Absolute Monocyte Count 0.71 k/cumm (0.11-0.7); Absolute Neutrophil Count 4.51 k/cumm (1.2-6.7); Basophils % 0.7; Eosinophils % 6.5; HCT 33.9 % (40.0-50.0); HGB 11.4 g/dL (13.5-17.5); Immature Grans % 0.1 %; Lymphocytes % 14.9; Mean Corp. HGB Concentration 33.6 g/dL (32.0-36.0); Mean Corpuscular Hemoglobin 31.5 pg (27.0-33.0); Mean Corpuscular Volume 93.6 fL (80-95); Mean Platelet Volume 10.8 fL (8.0-11.0); Monocytes % 10.6; Neutrophils % 67.2; Platelet Count 227 x1000/uL (130-400); RBC 3.62 m/cumm (4.50-6.00); RBC Distribution Width 13.1 % (11.8-14.1); White Blood Cell Count 6.72 k/cumm (4.4-10.8)
[2019-06-11 16:57] LABS: ALT 35 U/L (16-63); AST 24 U/L (15-37); Albumin 3.3 g/dL (3.4-5.0); Alkaline Phosphatase 82 U/L (46-116); Anion Gap 7.2 mmol/L (3-11); BUN 37 mg/dL (7-18); Bilirubin, Total 0.4 mg/dL (0.2-1.0); CO2 25.8 mmol/L (21.0-32.0); CREATININE 2.05 mg/dL (0.70-1.30); Calcium 8.6 mg/dL (8.5-10.1); Chloride 104 mmol/L (98-107); Estimated GFR 32.75 (mL/min/1.73m2); Folate 19.5 ng/mL (8.6-20.0); GGT 45 U/L (15-85); Glucose 110 mg/dL (74-106); Potassium 4.4 mmol/L (3.5-5.1); Sodium 137 mmol/L (136-145); Total Protein 6.4 g/dL (6.4-8.2); Vitamin B12 393 pg/mL (193-986)
[2019-06-12 10:30] LABS: PSA, Screening 3.1 ng/mL (0.0-4.5)
== END 2019-06-11 15:29 ==
PROVIDERS: PCP Emergency Medicine; Visit Provider Emergency Medicine
DX: D64.9 Anemia, unspecified (principal); E78.5 Hyperlipidemia, unspecified; Z12.5 Encounter for screening for malignant neoplasm of prostate; Z85.46 Personal history of malignant neoplasm of prostate
CPT/HCPCS: 36415; 80053; 84153; 82607; 82746; 82977; 85025

== ENCOUNTER 2019-06-20 09:33 | Outpatient (CLI) | payer MEDICARE, BC, SELFPAY ==
[2019-06-20 09:47] LABS: Bilirubin Negative (Negative); Blood Negative (Negative); Clarity Clear (Clear); Glucose Negative (Negative); Ketones Negative (Negative); Leukocyte Esterase Negative (Negative); Nitrite Negative (Negative); Specific Gravity >= 1.030 (1.005-1.025); Urobilinogen 0.2 EU/dL (Up TO 0.2)
[2019-06-20 10:02] LABS: Bacteria Rare HPF (Negative); C & S Indicated? No; Casts 0-2 Hyaline LPF (Negative); Crystals Negative HPF (Negative); Epithelial Cells Negative HPF (Negative); Mucus Trace (Negative); RBC Negative HPF (0-2); WBC 0-2 HPF (0-5)
[2019-06-20 10:06] LABS: Abs Immature Grans 0.02 k/cumm (0.0-0.09); Absolute Basophil Count 0.08 k/cumm (0.0-0.2); Absolute Eosinophil Count 0.52 k/cumm (0.0-0.7); Absolute Lymphocyte Count 1.03 k/cumm (1.2-3.4); Absolute Monocyte Count 0.67 k/cumm (0.11-0.7); Absolute Neutrophil Count 5.52 k/cumm (1.2-6.7); Eosinophils % 6.6; HCT 36.9 % (40.0-50.0); HGB 12.7 g/dL (13.5-17.5); Immature Grans % 0.3 %; Lymphocytes % 13.1; Mean Corp. HGB Concentration 34.4 g/dL (32.0-36.0); Mean Corpuscular Hemoglobin 31.8 pg (27.0-33.0); Mean Corpuscular Volume 92.3 fL (80-95); Mean Platelet Volume 10.9 fL (8.0-11.0); Monocytes % 8.5; Neutrophils % 70.5; Platelet Count 234 x1000/uL (130-400); RBC Distribution Width 12.7 % (11.8-14.1); Reticulocyte 1.5 % (0.5-2.4); White Blood Cell Count 7.84 k/cumm (4.4-10.8)
[2019-06-20 10:28] LABS: Iron 81 ug/dL (65-175); Total Iron Binding Capacity 337 ug/dL (250-450); Transferrin Sat 24 % (20-55)
[2019-06-20 10:41] LABS: Anion Gap 10.4 mmol/L (3-11); BUN 29 mg/dL (7-18); CO2 25.6 mmol/L (21.0-32.0); CREATININE 1.95 mg/dL (0.70-1.30); Calcium 8.4 mg/dL (8.5-10.1); Chloride 104 mmol/L (98-107); Ferritin 309 ng/mL (26-388); Glucose 98 mg/dL (74-106); Potassium 3.8 mmol/L (3.5-5.1); Sodium 140 mmol/L (136-145)
== END 2019-06-20 09:53 ==
PROVIDERS: PCP Emergency Medicine; Visit Provider Emergency Medicine
DX: I10 Essential (primary) hypertension (principal); D64.9 Anemia, unspecified; R30.0 Dysuria
CPT/HCPCS: 36415; 80048; 82668; 81003; 81015; 82728; 83540; 83550; 85025; 85045

== ENCOUNTER → 2019-07-10 08:01 | Outpatient (BNVA) | payer MEDICARE, BC, SELFPAY | PROVIDERS: PCP Emergency Medicine; Referring Provider Emergency Medicine; Visit Provider Physical Therapy Assistant | DX: Z12.11 Encounter for screening for malignant neoplasm of colon (principal); I10 Essential (primary) hypertension ==

== ENCOUNTER 2019-11-29 11:02 | Emergency (ER) | payer MEDICARE, BC, SELFPAY ==
[2019-11-29] VITALS (60 sets, daily range): BP systolic 130–168; BP diastolic 83–133; PULSE 63–82; RESP 8–26; TEMP 36.6; O2SAT 86–98
--- NOTE | 2019-11-29 11:04 | W.ED.GENAD ---
Discharge Plan Disposition Patient Disposition: HOME Condition: Fair Discharge Details Chief Complaint: ETOHWithdr Clinical Impression: Alcohol abuse, Transaminitis, Renal insufficiency Primary Care Provider: Jovani Wharton ED Provider: Jasmin Pratt Home Meds and New Rx's Prescriptions: New diazepam [Valium] 10 mg tablet 10 mg PO TID Qty: 6 RF: 0 Continued thiamine HCl (vitamin B1) 100 mg tablet 100 mg PO DAILY RF: 0 polyethylene glycol 3350 17 gram/dose powder 238 g PO ONCE Qty: 238 RF: 0 bisacodyl [Dulcolax (bisacodyl)] 5 mg tablet,delayed release (DR/EC) 5 mg PO ONCE Qty: 4 RF: 0 amlodipine 5 mg tablet 5 mg PO DAILY Qty: 90 RF: 3 allopurinol 100 mg tablet 100 mg PO DAILY Qty: 90 RF: 3 lansoprazole [Prevacid] 30 mg capsule,delayed release(DR/EC) 30 mg PO DAILY Qty: 90 RF: 3 metoprolol succinate 100 mg tablet extended release 24 hr 100 mg PO DAILY Qty: 90 RF: 3 celecoxib 200 mg capsule 200 mg PO DAILY PRNRF: 0 Discharge Instructions Instructions: Diazepam (By mouth), Abuse of Alcohol (ED) Additional Instructions: Stop drinking alcohol. Your , Yen, will be in charge of my medications. She will give you 1 tablet of diazepam 3 times daily. This is to be at scheduled intervals to help prevent withdrawal symptoms. Mental health will be in touch with you 3 times a day and rehab goes to be in touch with you at least once daily. Please feel free to call them at any time at [phone] I would like for you to recheck your primary care, I have already reached out and spoken with them, plan is for you to follow-up tomorrow for reevaluation. Referrals for inpatient alcohol management as well as an intensive outpatient program are being sent currently. Your COVID-19 testing is pending. Tomorrow, we should know more regarding which option will work best for you and which will be most promptly available. If you develop seizures, headaches, fevers, suicidal ideations, homicidal ideations or other new/worsening symptoms I would like for you to seek care immediately once again. Referrals: Jovani Wharton, [Primary Care Provider] - Medical Decision Making Patient is a very pleasant 64-year-old gentleman. 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 Reports that he has had difficulty with alcoholism for several years. He reports that he begins drinking around 8 AM each day. Drink of choice is vodka. He is unclear how much he drinks on a daily basis but reports he goes to half a gallon every 2 weeks. He states that he has done well with the rehab followed by a AA meetings historically. However, as AA meetings have been closed with [facility], he began drinking again. States that he began drinking quite heavily a few weeks ago. He recognizes been told that this puts in his family and is very upset by this. He wants to be able to get back to how he had been previously. States he is now having difficulty with his functioning secondary to his alcoholism. He reports that when he has not had a drink he begins to feel very anxious and have chest pressure. He denies any true chest pain. No chest pain with exertion. No shortness of breath. He denies any thoughts of self-harm or suicidal ideation but does state that he thinks about leaving his family as sometimes I feel they would be better off without me. He denies any suicidal plan. Denies any homicidal thoughts. Seems more frustrated than anything else and is here requesting help with his alcoholism. Patient previously been admitted to [facility] where he was able to detox and have success with his alcoholism. On exam, patient appears nontoxic. Do smell alcohol but he does not appear acutely intoxicated seems to be mentating clearly with clear speech. He appears anxious. He has sad when discussing his family and does cry quickly. He denies any active suicidal homicidal ideations. He has clear lungs, normal cardiac exam, no lower extremity edema. Abdomen is benign. This time, with his symptom of chest pressure, I do feel that ECG with troponin would be appropriate. However, his symptoms are more concerning for anxiety and alcoholism than true cardiac disease. While the patient is not endorsing active suicidal ideations, I am concerned given the patient's demographic that he is at higher risk for suicide attempt as well as suicide success. I will be consulting with [facility] human services to discuss my concerns more and have mental health evaluate the patient I will perform baseline screening labs that will be required for inpatient admission to alcohol rehab facility. Patient is never had a seizure when withdrawing from alcohol historically. We will also consult with rehab flag football coach as patient has done quite well with AA historically and will need continued management even if he does go to inpatient facility. ECG was reviewed by Dr. Diaz. Patient is in normal sinus rhythm with a rate of 69. Patient does have a incomplete right bundle branch block but no acute ischemic changes are noted. Labs reviewed. Slightly anemic with a hemoglobin of 13.1, CBC otherwise without significant abnormality. Patient's creatinine is elevated at 2.12, patient has been elevated like this historically and this does seem to be fairly baseline. Patient's anion gap is elevated slightly as is his BUN. Patient did appear dry and he is receiving hydration. AST and ALT are both elevated at 149 and 109 respectively. Patient was last elevated like this last fall prior to going to rehab and cessation from alcohol. Troponin is less than 0.05. As the patient has not had any chest pain today and is feeling otherwise well, I do not feel that repeat troponin is necessary. I was able to speak with coach cleaner as well as mental health at the same time. Neither feel that the patient is an imminent threat to himself or others. Patient does seem genuinely interested in stopping alcohol in a safe manner and seems concerned with how this is affecting his personal and professional life. The coach cleaner will continue to check in on the patient and did advise on AA meetings although these do not seem to be the typical meetings he is used to. However, he has done well with these historically. Mental health is able to refer to a substance abuse counselor as well as check in on the patient. Also advised that there is an intensive outpatient rehab available for the patient. At this time, they do not feel that the patient is wanting inpatient rehab. However, my impression was that he did want inpatient rehab. I discussed this further with he seems to be fairly unsure what he would benefit most from. However, I did express my concern regarding abrupt cessation of alcohol given the large quantity that he intakes daily. Patient's alcohol level is currently 313 and this is with him appearing clinically sober. I am concerned that he may have withdrawals with abrupt cessation. At this point however, the patient seems unsure if he would like to have inpatient rehab. We will also require COVID testing prior to inpatient rehab being possible. Steve testing has been sent. A lengthy chat with the patient's who is also concerned regarding his safety. She does feel that inpatient treatment would be more appropriate. However, patient does not meet inpatient requirements at this time for hospital admission. I also unable to have the patient place [facility] He spoke again with mental health and expressed the concerns of the . She is concerned that at this time he seems like he wants help but this seems to wax and wane. She is concerned that he can become quite depressed and while she has not explicitly heard him expressed thoughts of suicide this is a concern. I did express these concerns with mental health. Patient does not meet criteria for inpatient admission for psychiatric care. Nor does the patient want these admissions at this time. However, plan is for mental health to speak with the patient 3 times daily. They were given check in times. I spoke with the patient's primary care and we have decided on diazepam 3 times daily for the next few days until treatment plan may be solidified. COVID-19 testing is pending. Mental health will also refer to inpatient rehab as well as intensive outpatient therapy options. Patient's will be the one that holds onto the diazepam and administered 3 times daily. I do not want the patient to have access to such a dangerous medication. I did discuss this at length with the patient and his and they are in agreement with this plan. Patient is ju for safety at this point, continues to want help. Will not drive while taking the diazepam. He will follow-up with primary care tomorrow. They were given strict return precautions. All of their questions and concerns were addressed and they are in agreement with this plan HPI General Mode of arrival: ambulatory. Date/Time Provider Initiated Documentation: 11/29/19 11:04. Limitations to Documentation: no limitations. Information obtained by: patient and RN notes reviewed. HPI Narrative: Patient is a pleasant 64-year-old gentleman presenting today hoping to go to rehab facility for alcoholism. Patient reports that he has drank heavily for several years. He did go through rehab last fall states that he was quite successful and continue to go to throughout the course of the spring. However, secondary to COVID-19, AA was closed. He has been struggling with his sobriety since that time. 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 He does report that he has a very supportive family but this seems to exaggerate his feelings of guilt. He is very upset with himself for doing this to his family. He reports that he typically wakes up around 5 AM to do chores and begins drinking vodka around 8 AM. Unclear how much he drinks on a regular basis but he states that he goes through half gallon of vodka approximately 2 weeks. States that he then drinks throughout the course the day. Did drink prior to coming in and does not feel that he needs another, does not feel shaky at this point. Reports that he begins drinking associated with increased anxiety. States that this anxiety can manifest primarily in his chest. He denies any true chest pain but reports anxious. He denies suicidal ideation but does report feeling like he is worthless and a burden on his family. Related Data Home Medications Medication Instructions Recorded Confirmed amlodipine 5 mg tablet 5 mg PO DAILY #90 tab-cap 12/05/18 11/29/19 allopurinol 100 mg tablet 100 mg PO DAILY #90 tab-cap 05/08/19 11/29/19 thiamine HCl (vitamin B1) 100 mg 100 mg PO DAILY 05/15/19 11/29/19 tablet lansoprazole 30 mg capsule,delayed 30 mg PO DAILY #90 tab-cap 05/22/19 11/29/19 release bisacodyl 5 mg tablet,delayed 5 mg PO ONCE #4 tab 07/10/19 07/10/19 release polyethylene glycol 3350 17 238 g PO ONCE #238 gm 07/10/19 07/10/19 gram/dose oral powder metoprolol succinate 100 mg 100 mg PO DAILY #90 tab 10/06/19 11/29/19 tablet,extended release 24 hr celecoxib 200 mg PO DAILY PRN 11/29/19 11/29/19 diazepam [Valium] 10 mg PO TID #6 tab 11/29/19 Previous Rx's Medication Instructions Recorded amlodipine 5 mg tablet 5 mg PO DAILY #90 tab-cap 12/05/18 allopurinol 100 mg tablet 100 mg PO DAILY #90 tab-cap 05/08/19 lansoprazole 30 mg capsule,delayed 30 mg PO DAILY #90 tab-cap 05/22/19 release bisacodyl 5 mg tablet,delayed 5 mg PO ONCE #4 tab 07/10/19 release polyethylene glycol 3350 17 238 g PO ONCE #238 gm 07/10/19 gram/dose oral powder metoprolol succinate 100 mg 100 mg PO DAILY #90 tab 10/06/19 tablet,extended release 24 hr diazepam [Valium] 10 mg PO TID #6 tab 11/29/19 Allergies Allergy/AdvReac Type Severity Reaction Status Date / Time morphine Allergy Intermediate HIVES/RASH Verified 11/29/19 11:36 General VICTORIA: 2 Review of Systems Constitutional Constitutional: Reports as per HPI, Denies chills, Denies fever(s), Denies headache(s), Denies lethargy and Denies poor appetite Eyes Eyes: Denies change in vision ENT Ears, Nose, Mouth, and Throat: Denies dizziness and Denies headache(s) Cardiovascular Cardiovascular: Reports as per HPI, Denies dyspnea and Denies dyspnea on exertion Respiratory Respiratory: Reports as per HPI, Denies chest congestion, Denies cough, Denies pain on inspiration, Denies pain with cough, Denies dyspnea, Denies dyspnea on exertion and Denies wheezing Gastrointestinal Gastrointestinal: Reports as per HPI, Denies abdominal pain, Denies diarrhea, Denies nausea and Denies vomiting Genitourinary Genitourinary: Denies system reviewed and no additional complaints, except as documented (denies change in urinary habits) Musculoskeletal Musculoskeletal: Reports as per HPI and Denies back pain Integumentary/Breasts Skin/Breast: Reports as per HPI and Denies rash Neurologic Neurologic: Reports as per HPI, Denies behavioral changes, Denies dizziness, Denies headache(s) and Denies memory loss Psychiatric Psychiatric: Denies abnormal sleep pattern, Reports anxiety, Denies behavioral changes, Reports depression, Denies auditory hallucinations, Reports hopelessness, Reports anhedonia, Denies memory loss, Reports mood swings, Reports panic attacks, Denies homicidal ideation and Denies suicidal ideation Allergic/Immunologic Allergic/Immunologic: Denies wheezing [facility] Medical History (Updated 11/29/19 @ 15:39 by ARMANDO Dunlap) Alcohol abuse (Chronic) Anemia in chronic kidney disease (CKD) (Acute) Gout (Chronic) History of basal cell cancer (Acute ~06/2019) Left ear Hyperlipidemia (Chronic) Hypertension (Chronic) Lumbar spondylosis (Chronic) Reflux esophagitis (Chronic 09/24/95) GERD in excess of 20 years. 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 Pets and animals: Yes Pets and animals: dog(s) Duration: > 90 minutes/day Frequency: daily Hoa/Jewish: Roman Catholic Special hoa needs: No Do you feel safe at home: Yes Do you feel safe in your relationship?: Yes Exam Const General: cooperative, healthy appearing, comfortable, no acute distress, well developed and anxious Nutritional Appearance: average body habitus and well nourished Orientation: alert, awake and oriented x3 HENMT Head: normal to inspection Ears: hearing grossly normal bilaterally Mouth: moist mucous membranes Chest Chest: normal inspection of the chest, normal palpation of entire chest wall and no crepitus Resp Effort & Inspection: normal respiratory effort, able to speak in complete sentences and no respiratory distress Auscultation: clear to auscultation bilaterally, no rales, no rhonchi and no wheezes Cardio Rate: regular rate Rhythm: regular rhythm Heart Sounds: S1 normal and S2 normal GI Inspection: normal to inspection, no edema and non-distended Palpation: soft, no hepatosplenomegaly, not firm, no guarding, not rigid and nontender Auscultation: normal bowel sounds Back/Spine/Pelvis Back: no CVA tenderness Thoracic/Lumbar Spine: thoracic and lumbar spine normal to inspection Skin General skin exam: no rashes or lesions noted Trauma: no lacerations or abrasions Neuro General: patient alert, patient awake and patient oriented x3 Cognition: normal cognition Speech: speech normal Gait: normal gait Extrem General: normal to inspection, capillary refill normal, no pedal edema, no calf tenderness and normal gait Psych Appearance: grossly normal and well kempt Mental Status: mental status grossly normal Speech and Movement: speech and movement normal Mood: anxious mood Affect: sad Attitude: cooperative Thought Process: normal Thought Content: normal Insight: fair Judgment: fair
[2019-11-29] MEDS: Lactated Ringers 1,000 ML 1000 ML IV (12:32)
[2019-11-29 12:38] LABS: Absolute Basophil Count 0.06 k/cumm (0.0-0.2); Absolute Eosinophil Count 0.08 k/cumm (0.0-0.7); Absolute Lymphocyte Count 0.78 k/cumm (1.2-3.4); Absolute Monocyte Count 0.27 k/cumm (0.11-0.7); Absolute Neutrophil Count 3.55 k/cumm (1.2-6.7); Basophils % 1.3; Eosinophils % 1.7; HCT 37.5 % (40.0-50.0); HGB 13.1 g/dL (13.5-17.5); Lymphocytes % 16.5; Mean Corp. HGB Concentration 34.9 g/dL (32.0-36.0); Mean Corpuscular Hemoglobin 32.7 pg (27.0-33.0); Mean Corpuscular Volume 93.5 fL (80-95); Mean Platelet Volume 10.4 fL (8.0-11.0); Monocytes % 5.7; Neutrophils % 74.8; Platelet Count 185 x1000/uL (130-400); RBC 4.01 m/cumm (4.50-6.00); RBC Distribution Width 13.4 % (11.8-14.1); White Blood Cell Count 4.74 k/cumm (4.4-10.8)
[2019-11-29 12:43] LABS: Bilirubin Negative (Negative); Blood Moderate (Negative); Clarity Clear (Clear); Glucose Negative (Negative); Ketones Negative (Negative); Leukocyte Esterase Negative (Negative); Nitrite Negative (Negative); Specific Gravity 1.025 (1.005-1.025); Urobilinogen 0.2 EU/dL (Up TO 0.2)
[2019-11-29 12:49] LABS: Bacteria Rare HPF (Negative); Casts 0-2 Coarse Granular LPF (Negative); Crystals Negative HPF (Negative); Epithelial Cells Few HPF (Negative); Mucus Trace (Negative); WBC 0-2 HPF (0-5)
[2019-11-29 12:51] LABS: ALT 109 U/L (16-63); AST 149 U/L (15-37); Albumin 3.5 g/dL (3.4-5.0); Alkaline Phosphatase 92 U/L (46-116); Anion Gap 12.7 mmol/L (3-11); BUN 32 mg/dL (7-18); Bilirubin, Total 0.4 mg/dL (0.2-1.0); C & S Indicated? No; CO2 22.3 mmol/L (21.0-32.0); CREATININE 2.12 mg/dL (0.70-1.30); Calcium 8.5 mg/dL (8.5-10.1); Chloride 104 mmol/L (98-107); Estimated GFR 31.51 (mL/min/1.73m2); Glucose 86 mg/dL (74-106); Potassium 3.5 mmol/L (3.5-5.1); Sodium 139 mmol/L (136-145); Total Protein 7.3 g/dL (6.4-8.2)
[2019-11-29 12:53] LABS: Magnesium 2.1 mg/dL (1.8-2.4)
[2019-11-29 12:55] LABS: Troponin I < 0.05 ng/mL (<0.06)
[2019-11-29 13:01] LABS: *AMPHETAMINES SCREEN URINE Negative (Negative); *BARBITURATES SCREEN URINE Negative (Negative); *BENZODIAZEPINES SCREEN URINE Negative (Negative); Cannabinoids THC Negative (Negative); Cocaine Screen,Urine Negative (Negative); METHADONE URINE SCREEN Negative (Negative); OPIATES URINE SCREEN Negative (Negative)
[2019-11-29 13:04] LABS: Tricyclic Antidepressants Negative (Negative)
--- NOTE | 2019-11-29 13:56 | PDOC.MHCN_ITS ---
Date of service: 11/29/19 Time of Service: 13:56 Mental Health Crisis Note Presenting Issue How did you arrive at the ED and why did you come: Mathew came to the ER of his own accord as he is struggling with substance use and seeking support. Precipitating Factors Mathew denied SI and HI but does admit to thoughts that he should take a drive. He had a hard time explaining what this actually means but was clear that he does not want ot . I want relief from what I am dealing with. There are no signs of delusions. Disposition BEHAVIOR: Mathew is a kind and freindly man who is engaged and cooperative. He asks appropriate questions and wants for feel better. EYE CONTACT: Eye contact is good when he has the tablet screen looking at him. He struggles with hearing so when he is listening he will have the tablet closer to his ear and then will forget to pull it back to look at his face. MOOD: Mathew is happy but frustrated with his decisions to start using ETOH again. AFFECT: Mathew's affect appears normal and appropriate in each situation. APPETITE: Mathew reported that his appetite is poor. HTe last time he ate was yesterday afternoon 1 sandwich. SLEEP(trouble falling/staying asleep: Mathew reports that he is tired all the time. Plan Mathe[facility] is [facility] sure [facility] He is however, wanting supports and services. Outreach to Wooden Bar[employer] Mechanic, Christiana Palencia who spoke with Mathew earlier. Her plan is to keep contact with Mathew over the next 10 days, connect with him later to give him information on AA meetings that are still meeting as he found these to be the best help. In addition she will give him information on on-line AA meetings and connect him with the [employer]en [employer]ic Coordinator. This clinician will do an in-house referral for a substance abuse counselor and if needed along with what has already been mentioned a referral for IOP. This plan was discussed in a 3-way call with Jasmin Prakash and the Wooden Barrel Mechanic, Christiana.
[2019-11-29] MEDS: diazePAM 5 MG TAB PO (15:43)
[2019-12-01 17:18] LABS: COVID-19 RT-PCR Result Not Detected ((See Note))
== END 2019-11-29 16:49 | disposition home or self-care (01) ==
PROVIDERS: Emergency Provider Physician Assistant; PCP Emergency Medicine
DX: F10.120 Alcohol abuse with intoxication, uncomplicated (principal); Y90.8 Blood alcohol level of 240 mg/100 ml or more; R74.0 Nonspecific elevation of levels of transaminase and lactic acid dehydrogenase [LDH]; N18.9 Chronic kidney disease, unspecified; I12.9 Hypertensive chronic kidney disease with stage 1 through stage 4 chronic kidney disease, or unspecified chronic kidney disease; R07.89 Other chest pain; E86.0 Dehydration; F41.9 Anxiety disorder, unspecified; Z11.59 Encounter for screening for other viral diseases
CPT/HCPCS: 36415; 80053; 80307; 93005; 96360; 99284; U0003; 80320; 81003; 81015; 83735; 84484; 85025; 93010; 99285

== ENCOUNTER 2019-12-07 01:48 | Outpatient (CLI) | payer MEDICARE, BC, SELFPAY ==
[2019-12-07 12:00] LABS: Prothrombin Time 9.8 sec (9.3-11.0)
[2019-12-07 12:01] LABS: ALT 117 U/L (16-63); AST 58 U/L (15-37); Albumin 3.2 g/dL (3.4-5.0); Alkaline Phosphatase 86 U/L (46-116); BUN 35 mg/dL (7-18); Bilirubin, Total 0.5 mg/dL (0.2-1.0); CREATININE 2.81 mg/dL (0.70-1.30); Calcium 8.5 mg/dL (8.5-10.1); Chloride 101 mmol/L (98-107); Estimated GFR 22.76 (mL/min/1.73m2); Glucose 126 mg/dL (74-106); Potassium 3.9 mmol/L (3.5-5.1); Sodium 136 mmol/L (136-145)
[2019-12-07 12:10] LABS: ETHANOL BLOOD < 3.0 mg/dL (<3)
== END 2019-12-07 02:08 ==
PROVIDERS: PCP Emergency Medicine; Visit Provider Emergency Medicine
DX: F10.10 Alcohol abuse, uncomplicated (principal); I12.9 Hypertensive chronic kidney disease with stage 1 through stage 4 chronic kidney disease, or unspecified chronic kidney disease
CPT/HCPCS: 36415; 80053; 80320; 85610

== ENCOUNTER 2019-12-14 02:21 | Outpatient (CLI) | payer MEDICARE, BC, SELFPAY ==
[2019-12-14 07:44] LABS: Bilirubin Negative (Negative); Blood Negative (Negative); Clarity Clear (Clear); Glucose Negative (Negative); Ketones Negative (Negative); Leukocyte Esterase Negative (Negative); Nitrite Negative (Negative); Urobilinogen 0.2 EU/dL (Up TO 0.2)
[2019-12-14 07:55] LABS: Bacteria Rare HPF (Negative); C & S Indicated? No; Casts Negative LPF (Negative); Crystals Negative HPF (Negative); Epithelial Cells Rare HPF (Negative); Mucus Negative (Negative); RBC Negative HPF (0-2); WBC 0-2 HPF (0-5)
[2019-12-14 08:31] LABS: Anion Gap 12.1 mmol/L (3-11); BUN 47 mg/dL (7-18); CO2 21.9 mmol/L (21.0-32.0); CREATININE 2.88 mg/dL (0.70-1.30); Chloride 105 mmol/L (98-107); Estimated GFR 22.13 (mL/min/1.73m2); Glucose 104 mg/dL (74-106); Potassium 3.9 mmol/L (3.5-5.1); Sodium 139 mmol/L (136-145)
== END 2019-12-14 02:41 ==
PROVIDERS: PCP Emergency Medicine; Visit Provider Emergency Medicine
DX: I10 Essential (primary) hypertension (principal); R30.0 Dysuria; F10.10 Alcohol abuse, uncomplicated
CPT/HCPCS: 36415; 80048; 81003; 81015

== ENCOUNTER → 2020-03-24 09:27 | Outpatient (BNVA) | payer MEDICARE, BC, SELFPAY | PROVIDERS: PCP Emergency Medicine; Referring Provider Chiropractor Orthopedic; Visit Provider Student in an Organized Health Care Education/Training Program | DX: S66.812A Strain of other specified muscles, fascia and tendons at wrist and hand level, left hand, initial encounter (principal); X58.XXXA Exposure to other specified factors, initial encounter; I10 Essential (primary) hypertension | CPT/HCPCS: 99214 ==

== ENCOUNTER 2020-03-25 12:39 | Outpatient (REF) | payer MEDICARE, BC, SELFPAY ==
[2020-03-25 19:26] LABS: ALT 66 U/L (16-63); AST 58 U/L (15-37); Albumin 3.7 g/dL (3.4-5.0); Alkaline Phosphatase 73 U/L (46-116); Anion Gap 11.2 mmol/L (3-11); BUN 41 mg/dL (7-18); Bilirubin, Total 0.4 mg/dL (0.2-1.0); CO2 21.8 mmol/L (21.0-32.0); CREATININE 2.56 mg/dL (0.70-1.30); Calcium 8.6 mg/dL (8.5-10.1); Chloride 102 mmol/L (98-107); Estimated GFR 25.35 (mL/min/1.73m2); Glucose 96 mg/dL (74-106); Potassium 4.4 mmol/L (3.5-5.1); Sodium 135 mmol/L (136-145); Total Protein 6.6 g/dL (6.4-8.2)
[2020-03-25 19:47] LABS: GGT 66 U/L (15-85)
== END 2020-03-25 12:59 ==
LOC: LBN 12:39
PROVIDERS: PCP Emergency Medicine; Visit Provider Emergency Medicine
DX: E78.5 Hyperlipidemia, unspecified (principal); F10.10 Alcohol abuse, uncomplicated; N18.9 Chronic kidney disease, unspecified; I10 Essential (primary) hypertension; D63.1 Anemia in chronic kidney disease
CPT/HCPCS: 80048; 80076; 82977

== ENCOUNTER 2020-04-10 19:13 | Emergency (ER) | payer MEDICARE, BC, SELFPAY ==
[2020-04-10 19:17] VITALS: BP 171/93; PULSE 109; TEMP 36.6; O2SAT 97
[2020-04-10] MEDS: Normal Saline 1,000 ML 1000 ML IV (20:02)
[2020-04-10] MEDS: LORazepam 2 MG/ML VIAL 1 MG IVP (20:02)
[2020-04-10 20:12] LABS: Abs Immature Grans 0.01 10^3/uL (0.0-0.06); Absolute Basophil Count 0.08 10^3/uL (0.0-0.2); Absolute Eosinophil Count 0.08 10^3/uL (0.0-0.7); Absolute Lymphocyte Count 0.75 10^3/uL (1.2-3.4); Absolute Monocyte Count 0.35 10^3/uL (0.1-0.8); Absolute Neutrophil Count 3.36 10^3/uL (1.2-6.7); Basophils % 1.7; Eosinophils % 1.7; HCT 34.6 % (40.0-50.0); HGB 11.6 g/dL (13.5-17.5); Immature Grans % 0.2; Lymphocytes % 16.2; MCH 31.9 pg (27.0-33.0); MCHC 33.5 % (32.0-36.0); MCV 95.1 fL (80-95); MPV 10.9 fL (8.0-11.0); Monocytes % 7.6; Neutrophils % 72.6; Nucleated RBC 0 %; Platelet Count 174 10^3/uL (130-400); RBC 3.64 10^6/uL (4.36-5.78); RDW 14.7 % (11.8-14.1); RDW-SD 52.3 fL; WBC 4.63 10^3/uL (4.4-10.8)
[2020-04-10 20:29] LABS: ALT 76 U/L (16-63); AST 72 U/L (15-37); Albumin 4.3 g/dL (3.4-5.0); Alkaline Phosphatase 78 U/L (46-116); Anion Gap 17.4 mmol/L (3-11); BUN 49 mg/dL (7-18); Bilirubin, Total 0.3 mg/dL (0.2-1.0); CO2 16.6 mmol/L (21.0-32.0); CREATININE 2.66 mg/dL (0.70-1.30); Calcium 9.4 mg/dL (8.5-10.1); Chloride 104 mmol/L (98-107); Estimated GFR 24.17 (mL/min/1.73m2); Glucose 75 mg/dL (74-106); Sodium 138 mmol/L (136-145); Total Protein 7.9 g/dL (6.4-8.2)
[2020-04-10 20:36] VITALS: BP 151/97; PULSE 97; RESP 18; O2SAT 93
[2020-04-10 20:36] LABS: Lipase 1126 U/L (73-393)
--- NOTE | 2020-04-10 20:48 | W.ED.GENAD ---
Discharge Plan Disposition Patient Disposition: HOME Condition: Stable Discharge Details Clinical Impression: Alcohol abuse, Elevated lipase, CKD (chronic kidney disease) Primary Care Provider: Jovani Wharton ED Provider: Tico Joshi Home Meds and New Rx's Prescriptions: Continued thiamine HCl (vitamin B1) 100 mg tablet 100 mg PO DAILY RF: 0 allopurinol 100 mg tablet 100 mg PO DAILY Qty: 90 RF: 3 lansoprazole [Prevacid] 30 mg capsule,delayed release(DR/EC) 30 mg PO DAILY Qty: 90 RF: 3 metoprolol succinate 100 mg tablet extended release 24 hr 100 mg PO DAILY Qty: 90 RF: 3 lisinopril 5 mg tablet 5 mg PO DAILY Qty: 90 RF: 3 amlodipine 5 mg tablet 5 mg PO DAILY Qty: 90 RF: 3 Discharge Instructions Instructions: Chronic Kidney Disease (ED), Abuse of Alcohol (ED) Additional Instructions: Librium as directed. Plenty of fluids to avoid dehydration. Take your medications as directed. Please watch for new or worsening symptoms and return to the ER for any concerns. I strongly recommend reaching out to your primary care provider tomorrow for prompt outpatient reevaluation and to discuss alcohol detox at home with a prescription provided by him. Your lipase is elevated here in the ER but you do not have any abdominal pain, nausea, or vomiting. Given you are currently asymptomatic and your chronic renal disease does not allow for IV contrast, we did not order an emergent CT. My hope is that your renal function will improve and you may be able to tolerate an outpatient CT with contrast in the near future or potentially will need an MRI. As we discussed, if you do not tolerate home detox you will likely need to go inpatient to a detox facility. I also recommend contacting your counselor tomorrow to discuss your feelings and what is going on in your life right now. Medical Decision Making 65-year-old gentleman presenting requesting help with alcohol abuse. He has a counselor in the community. He has both detox formally at a facility and as an outpatient through his primary care provider. He would prefer to be discharged and detox as an outpatient if at all possible. He currently denies any suicidal or homicidal ideations. He reports feeling anxious and shaky but denies any other medical concerns. Clinically he appears well, nontoxic. Given his age and comorbidities, I would like to obtain routine laboratory values, give IV fluid, Ativan and reassess. Patient given 1 L IV fluid and 1 mg IV Ativan. Blood pressure trending downward at 151/79 and pulse is now in the 90s. He is resting comfortably. Laboratory values reveal a white blood cell count of 4.63 hemoglobin 11.6 hematocrit 34.6 platelet count 174. Creatinine 2.66 assessment GFR of 24.17. This looks slightly worse than his baseline. He is receiving 1 L IV fluid. AST 72, ALT 76, these are typically slightly elevated. Lipase of 1126. Alcohol 305. Patient denies any history of pancreatitis. He denies any active abdominal pain, nausea or vomiting. Again clinically he appears well, nontoxic. We discussed his elevated lipase, unfortunately no previous lipase for comparison. We discussed CT imaging and the emergent setting. Ideally the CT would be with contrast but we cannot do this given his GFR. Given he is otherwise asymptomatic, abdomen is soft, nontender, will not pursue emergent imaging here in the ER. Discussed that he needs to follow-up with his primary care provider, if his GFR does improve he can have a CT as an outpatient versus MRI if indicated. He was encouraged to return to the ER for new or worsening symptoms. Patient is requesting to be discharged home, he will contact his primary care provider tomorrow to discuss prescription for Librium and help with detoxing as an outpatient. I will provide 2 tablets of Librium 25 mg as a take-home pack to help him through the night and into tomorrow until he can talk with his primary care provider. We discussed in length that if his primary care provider was not willing to help him detox as an outpatient or that he failed outpatient detox, he may need to talk about going back into a formal detox as an inpatient. We also discussed the importance of contacting his counselor tomorrow. Upon discharge patient had no additional questions or concerns. Medical Records Medical records reviewed: Yes I reviewed the patient's medical records. Lab Data Lab results reviewed: Yes I reviewed the patient's lab results. Lab results narrative: Laboratory Tests Range/Units 04/10/20 04/10/20 04/10/20 20:00 20:00 20:00 WBC (4.4-10.8) 10^3/uL 4.63 RBC (4.36-5.78) 10^6/uL 3.64 L Hgb (13.5-17.5) g/dL 11.6 L Hct (40.0-50.0) % 34.6 L MCV (80-95) fL 95.1 H MCH (27.0-33.0) pg 31.9 MCHC (32.0-36.0) % 33.5 RDW (11.8-14.1) % 14.7 H Plt Count (130-400) 10^3/uL 174 MPV (8.0-11.0) fL 10.9 Immature Gran % 0.2 Neutrophils % 72.6 Lymphocytes % 16.2 Monocytes % 7.6 Eosinophils % 1.7 Basophils % 1.7 Nucleated RBC % % 0 Absolute Neutrophils (1.2-6.7) 10^3/uL 3.36 Absolute Lymphocytes (1.2-3.4) 10^3/uL 0.75 L Absolute Monocytes (0.1-0.8) 10^3/uL 0.35 Absolute Eosinophils (0.0-0.7) 10^3/uL 0.08 Absolute Basophils (0.0-0.2) 10^3/uL 0.08 Sodium (136-145) mmol/L 138 Potassium (3.5-5.1) mmol/L 4.0 Chloride (98-107) mmol/L 104 Carbon Dioxide (21.0-32.0) mmol/L 16.6 L Anion Gap (3-11) mmol/L 17.4 H BUN (7-18) mg/dL 49 H Creatinine (0.70-1.30) mg/dL 2.66 H Estimated GFR/1.73 m2 (mL/min/1.73m2) 24.17 Glucose (74-106) mg/dL 75 Calcium (8.5-10.1) mg/dL 9.4 Total Bilirubin (0.2-1.0) mg/dL 0.3 AST (15-37) U/L 72 H ALT (16-63) U/L 76 H Alkaline Phosphatase (46-116) U/L 78 Total Protein (6.4-8.2) g/dL 7.9 Albumin (3.4-5.0) g/dL 4.3 Lipase (73-393) U/L 1126 H Ethyl Alcohol (<3) mg/dL 305.0 HPI General Mode of arrival: ambulatory. Date/Time Provider Initiated Documentation: 04/10/20 19:14. Limitations to Documentation: no limitations. Information obtained by: patient. HPI Narrative: This is a 65-year-old gentleman with a past medical history that includes alcohol abuse, chronic kidney disease, gout, hyperlipidemia, hypertension, renal insufficiency, presenting to the ER today stating that he needs help with alcohol. He would like to nip it in the bud. He went to [facility] nearly 1 year ago and had good results, subsequently relapsed and then detoxed as an outpatient with a prescription from his primary care provider. He states that his job is stressful and it is causing him to drink more, for the last few weeks a pint of vodka daily. He went hunting this weekend and realized he was drinking too much. Last drink was around 4:00 this afternoon. He denies any suicidal or homicidal ideations. He states that he has never had a alcohol withdrawal seizure. He does not believe that he is truly withdrawing at this moment but feels as though it is likely to begin. He currently states that he feels slightly shaky. Otherwise has no medical concerns or complaints. Denies recent illness or trauma. Patient would prefer not to go inpatient detox and rather detox as an outpatient with his primary care provider. He does have a counselor in the community. Patient also reports that he was going to AA meetings but Yash has made those more challenging Related Data Home Medications Medication Instructions Recorded Confirmed allopurinol 100 mg tablet 100 mg PO DAILY #90 tab-cap 05/08/19 03/25/20 thiamine HCl (vitamin B1) 100 mg 100 mg PO DAILY 05/15/19 03/25/20 tablet lansoprazole 30 mg capsule,delayed 30 mg PO DAILY #90 tab-cap 05/22/19 03/25/20 release metoprolol succinate 100 mg 100 mg PO DAILY #90 tab 10/06/19 03/25/20 tablet,extended release 24 hr lisinopril 5 mg tablet 5 mg PO DAILY #90 tab 12/08/19 03/25/20 amlodipine 5 mg tablet 5 mg PO DAILY #90 tab-cap 12/16/19 03/25/20 Previous Rx's Medication Instructions Recorded allopurinol 100 mg tablet 100 mg PO DAILY #90 tab-cap 05/08/19 lansoprazole 30 mg capsule,delayed 30 mg PO DAILY #90 tab-cap 05/22/19 release metoprolol succinate 100 mg 100 mg PO DAILY #90 tab 10/06/19 tablet,extended release 24 hr lisinopril 5 mg tablet 5 mg PO DAILY #90 tab 12/08/19 amlodipine 5 mg tablet 5 mg PO DAILY #90 tab-cap 12/16/19 Allergies Allergy/AdvReac Type Severity Reaction Status Date / Time morphine Allergy Intermediate HIVES/RASH Verified 03/25/20 12:09 General Stated Complaint: ETOHWithdr VICTORIA: 3 Review of Systems Constitutional Constitutional: Denies fatigue, Denies fever(s), Denies headache(s) and Denies weakness Eyes Eyes: Denies change in vision ENT Ears, Nose, Mouth, and Throat: Denies headache(s) and Denies neck pain Cardiovascular Cardiovascular: Denies chest pain and Denies dyspnea Respiratory Respiratory: Denies cough and Denies dyspnea Gastrointestinal Gastrointestinal: Denies abdominal pain, Denies nausea and Denies vomiting Genitourinary Genitourinary: Denies dysuria Musculoskeletal Musculoskeletal: Denies back pain, Denies neck pain, Denies numbness and Denies tingling Integumentary/Breasts Skin/Breast: Denies rash Neurologic Neurologic: Denies headache(s), Denies numbness, Denies tingling and Denies weakness Psychiatric Psychiatric: Reports anxiety, Denies homicidal ideation, Denies suicidal ideation and Reports other (Stress) Endocrine Endocrine: Denies fatigue [facility] Medical History Alcohol abuse Anemia in chronic kidney disease (CKD) Gout History of basal cell cancer (~06/2019) Left ear Hyperlipidemia Hypertension Lumbar spondylosis Reflux esophagitis (09/24/95) GERD in excess of 20 years. on PPI that entire time ?esophageal stricture Renal insufficiency (10/17/16) Surgical History H/O partial resection of colon s/p ostomy reversal Replacement of total knee joint 2012-RIGHT STRESS TEST (~01/2003) Family History Mother Breast cancer Father Heart disease Hyperlipidemia Sister Alcohol abuse Depression Sister Alcohol abuse Sister No problems noted. Brother Hyperlipidemia Brother No problems noted. Brother No problems noted. Brother No problems noted. Brother No problems noted. Maternal Grandfather No problems noted. Paternal Grandfather Alcohol abuse Hyperlipidemia Maternal Grandmother Alcohol abuse Paternal Grandmother Hyperlipidemia Stroke Son Testicular cancer Son No problems noted. Son No problems noted. Son No problems noted. Social History Smoking/Tobacco Use Status: Former Tobacco Use Smoking risk assessment performed?: Yes Alcohol Intake: current Alcohol Intake frequency: 3 or more drinks per day Alcohol type: hard liquor Counseling given: Yes Drug use: Occasionally Substance use type: former substance user and marijuana Household members: spouse current occupation: [employer] Pets and animals: Yes Pets and animals: dog(s) Duration: > 90 minutes/day Frequency: daily Hoa/Amish: Spiritism Special hoa needs: No Do you feel safe at home: Yes Do you feel safe in your relationship?: Yes Exam Const General: cooperative, healthy appearing, comfortable, no acute distress and anxious Orientation: alert, awake and oriented x3 HENMT Head: normal to inspection, normocephalic and atraumatic Face and sinus: normal facial exam Mouth: moist mucous membranes abnormal (Dry) Throat: posterior oropharynx normal Eyes General: appearance normal, both eyes and all related structures Alignment and Position: alignment normal Periorbital: periorbital findings normal Eyelids: eyelids normal Conjunctivae: conjunctivae normal Sclera: sclerae normal Cornea: corneas normal Pupils: PERRL EOM: EOM intact bilaterally Direct ophthalmoscopy: normal light reflex Neck Neck: normal visual inspection, full ROM, no meningeal signs, trachea midline and supple Resp Effort & Inspection: normal respiratory effort and able to speak in complete sentences Auscultation: clear to auscultation bilaterally Cardio Rate: tachycardic (Tachycardia 108) Rhythm: regular rhythm GI Inspection: normal to inspection Palpation: soft, not firm, no guarding, no masses and nontender Auscultation: normal bowel sounds Back/Spine/Pelvis Back: No back tenderness Skin General skin exam: no rashes or lesions noted Neuro General: patient alert, patient awake, patient oriented x3, moves all extremities and no focal motor deficits Cranial Nerves: CN's II-XI intact bilaterally Cognition: normal cognition Speech: speech normal Gait: normal gait Motor: muscle tone normal throughout and strength 5/5 throughout Sensory Exam: no sensory deficits noted Extrem General: normal to inspection, full ROM and capillary refill normal Psych Appearance: grossly normal Mental Status: mental status grossly normal Speech and Movement: speech and movement normal Mood: anxious mood Affect: normal affect Attitude: cooperative Thought Process: normal Thought Content: normal Insight: insight good Judgment: judgment good Course Vital Signs Vital signs: Vital Signs Temperature 36.6 C 04/10/20 19:17 Pulse 109 H 04/10/20 19:17 Blood Pressure 171/93 H 04/10/20 19:17 Pulse Oximetry 97 04/10/20 19:17 Temperature 36.6 C 04/10/20 19:17 Pulse 97 H 04/10/20 20:36 Respiratory Rate 18 04/10/20 20:36 Respiratory Effort 04/10/20 19:21 Respiratory Pattern Normal 04/10/20 19:22 Blood Pressure 151/97 H 04/10/20 20:36 Blood Pressure Position Supine 04/10/20 19:17 Pulse Oximetry 93 04/10/20 20:36 Oxygen Delivery Method Room Air 04/10/20 20:36 Oxygen Flow Rate 0 04/10/20 20:36 Pain Level 0 04/10/20 20:36 Lab/Test Results Lab/Test Results: Laboratory Tests Range/Units 04/10/20 04/10/20 04/10/20 20:00 20:00 20:00 WBC (4.4-10.8) 10^3/uL 4.63 RBC (4.36-5.78) 10^6/uL 3.64 L Hgb (13.5-17.5) g/dL 11.6 L Hct (40.0-50.0) % 34.6 L MCV (80-95) fL 95.1 H MCH (27.0-33.0) pg 31.9 MCHC (32.0-36.0) % 33.5 RDW (11.8-14.1) % 14.7 H Plt Count (130-400) 10^3/uL 174 MPV (8.0-11.0) fL 10.9 Immature Gran % 0.2 Neutrophils % 72.6 Lymphocytes % 16.2 Monocytes % 7.6 Eosinophils % 1.7 Basophils % 1.7 Nucleated RBC % % 0 Absolute Neutrophils (1.2-6.7) 10^3/uL 3.36 Absolute Lymphocytes (1.2-3.4) 10^3/uL 0.75 L Absolute Monocytes (0.1-0.8) 10^3/uL 0.35 Absolute Eosinophils (0.0-0.7) 10^3/uL 0.08 Absolute Basophils (0.0-0.2) 10^3/uL 0.08 Sodium (136-145) mmol/L 138 Potassium (3.5-5.1) mmol/L 4.0 Chloride (98-107) mmol/L 104 Carbon Dioxide (21.0-32.0) mmol/L 16.6 L Anion Gap (3-11) mmol/L 17.4 H BUN (7-18) mg/dL 49 H Creatinine (0.70-1.30) mg/dL 2.66 H Estimated GFR/1.73 m2 (mL/min/1.73m2) 24.17 Glucose (74-106) mg/dL 75 Calcium (8.5-10.1) mg/dL 9.4 Total Bilirubin (0.2-1.0) mg/dL 0.3 AST (15-37) U/L 72 H ALT (16-63) U/L 76 H Alkaline Phosphatase (46-116) U/L 78 Total Protein (6.4-8.2) g/dL 7.9 Albumin (3.4-5.0) g/dL 4.3 Lipase (73-393) U/L 1126 H Ethyl Alcohol (<3) mg/dL 305.0
[2020-04-10 21:03] VITALS: BP 151/79; PULSE 97; RESP 18; O2SAT 94
[2020-04-10] MEDS: chlordiazePOXIDE 25 MG CAP PO (21:03)
[2020-04-10] MEDS: chlordiazePOXIDE 25 MG CAP (21:03)
== END 2020-04-10 21:00 | disposition home or self-care (01) ==
PROVIDERS: Emergency Provider Physician Assistant; PCP Emergency Medicine
DX: F10.120 Alcohol abuse with intoxication, uncomplicated (principal); Y90.8 Blood alcohol level of 240 mg/100 ml or more; R74.8 Abnormal levels of other serum enzymes; I12.9 Hypertensive chronic kidney disease with stage 1 through stage 4 chronic kidney disease, or unspecified chronic kidney disease; N18.9 Chronic kidney disease, unspecified
CPT/HCPCS: 36415; 80053; 83690; 96361; 96374; 99284; 80320; 85025; J2060

== ENCOUNTER 2020-04-11 12:30 | Observation (INO) | payer MEDICARE, BC, SELFPAY ==
[2020-04-11] VITALS (30 sets, daily range): BP systolic 149–179; BP diastolic 84–105; PULSE 80–119; RESP 12–25; TEMP 35.9–38; O2SAT 93–99
--- NOTE | 2020-04-11 12:36 | ED.GENADUL_ITS ---
Discharge Plan Disposition Patient Disposition: [facility] INPATIENT Condition: Stable Discharge Details Clinical Impression: Alcohol withdrawal, Acute pancreatitis Admit Date/Time: 04/11/20 13:25 Admit Provider: Peg Everett Attending Provider: Peg Everett Primary Care Provider: Jovani Wharton ED Provider: Nola De La Vega Discharge Data Discharge Date/Time-TO BE ENTERED AT DEPARTURE: 04/11/20 15:45 Medical Decision Making 1240 -- 65-year-old male with a history of alcohol abuse, hypertension, hyperlipidemia and chronic kidney disease presents for admission for alcohol withdrawal and acute pancreatitis. Patient was seen here last night for similar symptoms and decision was made for him to go home with outpatient treatment with Librium. Patient saw his PCP Dr. Mcelroy today and symptoms not improving and sent here for admission. Patient is vomiting and unable to keep fluids down. Heart rate 119, blood pressure 179/104 on arrival. He did take Librium 90 minutes prior to arrival and does admit to some improvement of symptoms. He has slight hand tremor but is not diaphoretic. Will repeat screening labs. Lipase yesterday 1126. Case discussed with Dr. Everett who accepts patient for admission. Denies any known exposure to coronavirus or recent travel. 1410 -- Lipase down to 799 today. Alcohol level 0. Cr 2.52 which is close to his baseline. CT abdomen and pelvis notes gallstones but no other acute findings. Medical Records Medical records reviewed: Yes I reviewed the patient's medical records. Imaging Data Radiologic Study: Radiologist's impression: CT ABDOMEN PELVIS WO CLINICAL HISTORY: nausea, elevated lipase, r/o acute process. TECHNIQUE: Imaging Protocol: Axial computed tomography images with coronal and sagittal reformatted images were created and reviewed. COMPARISON: No exams were available for comparison FINDINGS: The examination is limited due to patient motion artifact. ABDOMEN: Lung Bases: Bilateral basilar atelectasis and fibrosis. Large hiatal hernia. Liver: Diffuse decreased attenuation of the liver consistent with fatty infiltration. No measurable mass. The liver measures 17.3 cm. Gallbladder and biliary tract: Gallstones are present. No biliary ductal dilatation. Pancreas: Normal density, no abnormal calcifications or inflammatory process. Spleen: Normal. Kidneys: Normal size, contour and axis.No radiodense stones or obstructive uropathy. No masses seen. Adrenal glands: No mass is seen. Lymph nodes: Within normal limits. Abdominal Aorta: Abdominal portion non-dilated. Moderate atherosclerosis. PELVIS: Bladder:Symmetric distention, no gross wall thickening. Bowel: No obstruction or bowel wall thickening. Appendix is unremarkable. Large hiatal hernia. Peritoneal cavity: No ascites, collection or mesenteric inflammatory response Reproductive organs: Within normal limits. Bones: Old bilateral rib fractures. Degenerative changes in the spine. Soft Tissues: Within normal limits. IMPRESSION: 1. Cholelithiasis. No biliary ductal dilatation. 2. Unremarkable pancreas on this CT examination. 3. Hepatomegaly and hepatic steatosis. 4. Findings were discussed with the emergency department on the date of the examination. Lab Data Lab results reviewed: Yes I reviewed the patient's lab results. Labs: Laboratory Tests Range/Units 04/11/20 04/11/20 04/11/20 12:40 12:40 12:40 WBC (4.4-10.8) 10^3/uL 8.48 D RBC (4.36-5.78) 10^6/uL 3.66 L Hgb (13.5-17.5) g/dL 11.8 L Hct (40.0-50.0) % 34.3 L MCV (80-95) fL 93.7 MCH (27.0-33.0) pg 32.2 MCHC (32.0-36.0) % 34.4 RDW (11.8-14.1) % 15.0 H Plt Count (130-400) 10^3/uL 189 MPV (8.0-11.0) fL 10.9 Immature Gran % 0.2 Neutrophils % 90.1 Lymphocytes % 4.2 Monocytes % 4.6 Eosinophils % 0.2 Basophils % 0.7 Nucleated RBC % % 0 Absolute Neutrophils (1.2-6.7) 10^3/uL 7.64 H Absolute Lymphocytes (1.2-3.4) 10^3/uL 0.36 L Absolute Monocytes (0.1-0.8) 10^3/uL 0.39 Absolute Eosinophils (0.0-0.7) 10^3/uL 0.02 Absolute Basophils (0.0-0.2) 10^3/uL 0.06 PT (9.3-11.0) sec 9.2 L INR (0.9-1.1) 0.9 APTT (21.0-27.5) sec 21.9 Sodium (136-145) mmol/L 139 Potassium (3.5-5.1) mmol/L 4.4 Chloride (98-107) mmol/L 102 Carbon Dioxide (21.0-32.0) mmol/L 18.3 L Anion Gap (3-11) mmol/L 18.7 H BUN (7-18) mg/dL 43 H Creatinine (0.70-1.30) mg/dL 2.52 H Estimated GFR/1.73 m2 (mL/min/1.73m2) 25.73 Glucose (74-106) mg/dL 131 H Calcium (8.5-10.1) mg/dL 10.1 Magnesium (1.8-2.4) mg/dL 1.9 Total Bilirubin (0.2-1.0) mg/dL 0.5 AST (15-37) U/L 73 H ALT (16-63) U/L 81 H Alkaline Phosphatase (46-116) U/L 79 Troponin I (<0.06) ng/mL < 0.05 Total Protein (6.4-8.2) g/dL 8.0 Albumin (3.4-5.0) g/dL 4.3 Lipase (73-393) U/L Urine Color (Yellow) Urine Clarity (Clear) Urine pH (5-8) Ur Specific [place] (1.005-1.025) Urine Protein (Negative) mg/dL Urine Ketones (Negative) mg/dL Urine Blood (Negative) Urine Nitrite (Negative) Urine Bilirubin (Negative) Urine Urobilinogen (Up TO 0.2) EU/dL Ur Leukocyte Esterase (Negative) Urine RBC (0-2) HPF Urine WBC (0-5) HPF Ur Epithelial Cells (Negative) HPF Urine Crystals (Negative) HPF Urine Bacteria (Negative) HPF Urine Casts (Negative) LPF Urine Mucus (Negative) Ur Culture Indicated? Urine Glucose (Negative) mg/dL Ethyl Alcohol (<3) mg/dL < 3.0 Range/Units 04/11/20 04/11/20 12:40 14:10 WBC (4.4-10.8) 10^3/uL RBC (4.36-5.78) 10^6/uL Hgb (13.5-17.5) g/dL Hct (40.0-50.0) % MCV (80-95) fL MCH (27.0-33.0) pg MCHC (32.0-36.0) % RDW (11.8-14.1) % Plt Count (130-400) 10^3/uL MPV (8.0-11.0) fL Immature Gran % Neutrophils % Lymphocytes % Monocytes % Eosinophils % Basophils % Nucleated RBC % % Absolute Neutrophils (1.2-6.7) 10^3/uL Absolute Lymphocytes (1.2-3.4) 10^3/uL Absolute Monocytes (0.1-0.8) 10^3/uL Absolute Eosinophils (0.0-0.7) 10^3/uL Absolute Basophils (0.0-0.2) 10^3/uL PT (9.3-11.0) sec INR (0.9-1.1) APTT (21.0-27.5) sec Sodium (136-145) mmol/L Potassium (3.5-5.1) mmol/L Chloride (98-107) mmol/L Carbon Dioxide (21.0-32.0) mmol/L Anion Gap (3-11) mmol/L BUN (7-18) mg/dL Creatinine (0.70-1.30) mg/dL Estimated GFR/1.73 m2 (mL/min/1.73m2) Glucose (74-106) mg/dL Calcium (8.5-10.1) mg/dL Magnesium (1.8-2.4) mg/dL Total Bilirubin (0.2-1.0) mg/dL AST (15-37) U/L ALT (16-63) U/L Alkaline Phosphatase (46-116) U/L Troponin I (<0.06) ng/mL Total Protein (6.4-8.2) g/dL Albumin (3.4-5.0) g/dL Lipase (73-393) U/L 799 H Urine Color (Yellow) Yellow Urine Clarity (Clear) Clear Urine pH (5-8) 6.0 Ur Specific [place] (1.005-1.025) 1.025 Urine Protein (Negative) mg/dL 100 H Urine Ketones (Negative) mg/dL Trace H Urine Blood (Negative) Small H Urine Nitrite (Negative) Negative Urine Bilirubin (Negative) Negative Urine Urobilinogen (Up TO 0.2) EU/dL 0.2 Ur Leukocyte Esterase (Negative) Negative Urine RBC (0-2) HPF 3-5 H Urine WBC (0-5) HPF 0-2 Ur Epithelial Cells (Negative) HPF Few Urine Crystals (Negative) HPF Few amorphous Urine Bacteria (Negative) HPF Few Urine Casts (Negative) LPF 0-2 coarse granular Urine Mucus (Negative) Trace Ur Culture Indicated? No Urine Glucose (Negative) mg/dL Negative Ethyl Alcohol (<3) mg/dL ECG Data Attestation: I personally reviewed and interpreted this ECG (s) as follows: Interpretation: rate of 89, sinus, T wave inversion in lead III. Peaked T waves in V2 through V6. No acute ST elevation or depression. OR 171. QRS 100. QTc 417. HPI General Mode of arrival: ambulatory . Date/Time Provider Initiated Documentation: 04/11/20 12:31 . Limitations to Documentation: no limitations . Information obtained by: patient . HPI Narrative: Patient is a 65-year-old male with a history of chronic alcohol abuse, CKD, hypertension, hyperlipidemia presents for admission for alcohol withdrawal and acute pancreatitis. Patient states for the past 3 months he has been drinking 20 ounces of vodka daily and states his last drink was yesterday afternoon. He was seen here last night for similar symptoms but symptoms improved with fluids and Ativan and he was discharged home with Librium. He states he last took Librium 2 hours prior to arrival with improvement of symptoms. He admits to vomiting this morning. He admits to some shaking now but denies any fever, cough, chest pain, shortness of breath. He denies any recent travel or recent known exposure to coronavirus. Related Data Home Medications Medication Instructions Recorded Confirmed allopurinol 100 mg tablet 100 mg PO DAILY #90 tab-cap 05/08/19 04/11/20 thiamine HCl (vitamin B1) 100 mg 100 mg PO DAILY 05/15/19 04/11/20 tablet lansoprazole 30 mg capsule,delayed 30 mg PO DAILY #90 tab-cap 05/22/19 04/11/20 release metoprolol succinate 100 mg 100 mg PO DAILY #90 tab 10/06/19 04/11/20 tablet,extended release 24 hr lisinopril 5 mg tablet 5 mg PO DAILY #90 tab 12/08/19 04/11/20 amlodipine 5 mg tablet 5 mg PO DAILY #90 tab-cap 12/16/19 04/11/20 diazepam 5 mg tablet 5 mg PO Q6H PRN #10 tab 04/11/20 04/11/20 ondansetron 8 mg disintegrating 8 mg PO Q8H PRN #10 tab 04/11/20 04/11/20 tablet Previous Rx's Medication Instructions Recorded allopurinol 100 mg tablet 100 mg PO DAILY #90 tab-cap 05/08/19 lansoprazole 30 mg capsule,delayed 30 mg PO DAILY #90 tab-cap 05/22/19 release metoprolol succinate 100 mg 100 mg PO DAILY #90 tab 10/06/19 tablet,extended release 24 hr lisinopril 5 mg tablet 5 mg PO DAILY #90 tab 12/08/19 amlodipine 5 mg tablet 5 mg PO DAILY #90 tab-cap 12/16/19 diazepam 5 mg tablet 5 mg PO Q6H PRN #10 tab 04/11/20 ondansetron 8 mg disintegrating 8 mg PO Q8H PRN #10 tab 04/11/20 tablet Allergies Allergy/AdvReac Type Severity Reaction Status Date / Time morphine Allergy Intermediate HIVES/RASH Verified 04/11/20 12:40 General VICTORIA: 3 Review of Systems All systems reviewed & are unremarkable except as noted in HPI and below Constitutional Constitutional: Reports as per HPI, Denies chills and Denies fever(s) Eyes Eyes: Denies blurry vision ENT Ears, Nose, Mouth, and Throat: Denies dizziness, Denies sore throat and Denies throat swelling Cardiovascular Cardiovascular: Denies chest pain and Denies dyspnea Respiratory Respiratory: Denies cough and Denies dyspnea Gastrointestinal Gastrointestinal: Denies abdominal pain, Denies diarrhea and Denies vomiting Genitourinary Genitourinary: Denies hematuria and Denies dysuria Musculoskeletal Musculoskeletal: Denies back pain and Denies numbness Integumentary/Breasts Skin/Breast: Denies lesions and Denies rash Neurologic Neurologic: Denies dizziness, Denies localized weakness, Denies numbness and Reports tremor(s) Allergic/Immunologic Allergic/Immunologic: Denies throat swelling PFSH Medical History Alcohol abuse Anemia in chronic kidney disease (CKD) Gout History of basal cell cancer (~06/2019) Left ear Hyperlipidemia Hypertension Lumbar spondylosis Reflux esophagitis (09/24/95) GERD in excess of 20 years. on PPI that entire time ?esophageal stricture Renal insufficiency (10/17/16) Surgical History H/O partial resection of colon s/p ostomy reversal Replacement of total knee joint 2013-RIGHT STRESS TEST (~01/2003) Family History Mother Breast cancer Father Heart disease Hyperlipidemia Sister Alcohol abuse Depression Sister Alcohol abuse Sister No problems noted. Brother Hyperlipidemia Brother No problems noted. Brother No problems noted. Brother No problems noted. Brother No problems noted. Maternal Grandfather No problems noted. Paternal Grandfather Alcohol abuse Hyperlipidemia Maternal Grandmother Alcohol abuse Paternal Grandmother Hyperlipidemia Stroke Son Testicular cancer Son No problems noted. Son No problems noted. Son No problems noted. Social History Smoking/Tobacco Use Status: Former Tobacco Use Smoking risk assessment performed?: Yes Alcohol Intake: current Alcohol Intake frequency: 3 or more drinks per day Alcohol type: hard liquor Counseling given: Yes Drug use: Never Substance use type: former substance user and marijuana Household members: spouse current occupation: [employer] Pets and animals: Yes Pets and animals: dog(s) Duration: > 90 minutes/day Frequency: daily Hoa/Yazidism: Christianity Special hoa needs: No Do you feel safe at home: Yes Do you feel safe in your relationship?: Yes Exam Const General: cooperative and no acute distress Orientation: alert, awake and oriented x3 HENMT Head: normal to inspection Ears: hearing grossly normal bilaterally and external ears normal General nose exam: external nose normal Face and sinus: normal facial exam Mouth: oral mucosae normal Teeth and gingiva: dentition normal Throat: posterior oropharynx normal Eyes General: appearance normal, both eyes and all related structures Eyelids: eyelids normal Pupils: PERRL EOM: EOM intact bilaterally Neck Neck: normal visual inspection Lymphatic: no lymphadenopathy noted Chest Chest: normal inspection of the chest Resp Effort & Inspection: normal respiratory effort and able to speak in complete sentences Auscultation: clear to auscultation bilaterally Cardio Rate: regular rate Rhythm: regular rhythm GI Inspection: normal to inspection Palpation: soft, not firm, no guarding, no hepatosplenomegaly, no masses and nontender Auscultation: normal bowel sounds Back/Spine/Pelvis Back: no CVA tenderness Skin General skin exam: no rashes or lesions noted Neuro General: patient alert and patient awake Cognition: normal cognition Speech: speech normal Gait: normal gait Motor: muscle tone normal throughout and tremor (slight hand tremor) Sensory Exam: no sensory deficits noted Extrem General: normal to inspection, full ROM and capillary refill normal Psych Appearance: grossly normal Mental Status: mental status grossly normal Speech and Movement: speech and movement normal Affect: normal affect Thought Process: normal
[2020-04-11 12:54] LABS: Abs Immature Grans 0.02 10^3/uL (0.0-0.06); Absolute Basophil Count 0.06 10^3/uL (0.0-0.2); Absolute Eosinophil Count 0.02 10^3/uL (0.0-0.7); Absolute Lymphocyte Count 0.36 10^3/uL (1.2-3.4); Absolute Monocyte Count 0.39 10^3/uL (0.1-0.8); Basophils % 0.7; Eosinophils % 0.2; HCT 34.3 % (40.0-50.0); HGB 11.8 g/dL (13.5-17.5); Immature Grans % 0.2; Lymphocytes % 4.2; MCH 32.2 pg (27.0-33.0); MCHC 34.4 % (32.0-36.0); MCV 93.7 fL (80-95); MPV 10.9 fL (8.0-11.0); Monocytes % 4.6; Neutrophils % 90.1; Nucleated RBC 0 %; Platelet Count 189 10^3/uL (130-400); RBC 3.66 10^6/uL (4.36-5.78); RDW-SD 51.6 fL; WBC 8.48 10^3/uL (4.4-10.8)
[2020-04-11 12:59] LABS: Absolute Neutrophil Count 7.64 10^3/uL (1.2-6.7)
[2020-04-11 13:12] LABS: ALT 81 U/L (16-63); AST 73 U/L (15-37); Albumin 4.3 g/dL (3.4-5.0); Alkaline Phosphatase 79 U/L (46-116); Anion Gap 18.7 mmol/L (3-11); BUN 43 mg/dL (7-18); Bilirubin, Total 0.5 mg/dL (0.2-1.0); CO2 18.3 mmol/L (21.0-32.0); CREATININE 2.52 mg/dL (0.70-1.30); Calcium 10.1 mg/dL (8.5-10.1); Chloride 102 mmol/L (98-107); Estimated GFR 25.73 (mL/min/1.73m2); Glucose 131 mg/dL (74-106); Magnesium 1.9 mg/dL (1.8-2.4); Potassium 4.4 mmol/L (3.5-5.1); Sodium 139 mmol/L (136-145); Troponin I < 0.05 ng/mL (<0.06)
[2020-04-11 13:16] LABS: INR 0.9 (0.9-1.1); PTT Activated 21.9 sec (21.0-27.5); Prothrombin Time 9.2 sec (9.3-11.0)
[2020-04-11] MEDS: LORazepam 2 MG/ML VIAL 0.5 MG IVP (13:19)
[2020-04-11 13:26] LABS: ETHANOL BLOOD < 3.0 mg/dL (<3)
--- NOTE | 2020-04-11 13:30 | RT.EKG_ITS ---
APPROVED REPORT Exam: Resting ECG Patient Location: I HR:89 bpm ECG Measurements Heart Rate 89 AXIS OH 171 P 36 QRSd 100 QRS -7 QT 343 T 21 QTc 417 Conclusion Sinus rhythm...normal P axis, V-rate 60- 99
[2020-04-11 13:39] LABS: Lipase 799 U/L (73-393)
--- NOTE | 2020-04-11 13:47 | DI.CT_ITS ---
EXAM: CT ABDOMEN PELVIS WO CLINICAL HISTORY: nausea, elevated lipase, r/o acute process. TECHNIQUE: Imaging Protocol: Axial computed tomography images with coronal and sagittal reformatted images were created and reviewed. COMPARISON: No exams were available for comparison FINDINGS: The examination is limited due to patient motion artifact. ABDOMEN: Lung Bases: Bilateral basilar atelectasis and fibrosis. Large hiatal hernia. Liver: Diffuse decreased attenuation of the liver consistent with fatty infiltration. No measurable mass. The liver measures 17.3 cm. Gallbladder and biliary tract: Gallstones are present. No biliary ductal dilatation. Pancreas: Normal density, no abnormal calcifications or inflammatory process. Spleen: Normal. Kidneys: Normal size, contour and axis.No radiodense stones or obstructive uropathy. No masses seen. Adrenal glands: No mass is seen. Lymph nodes: Within normal limits. Abdominal Aorta: Abdominal portion non-dilated. Moderate atherosclerosis. PELVIS: Bladder:Symmetric distention, no gross wall thickening. Bowel: No obstruction or bowel wall thickening. Appendix is unremarkable. Large hiatal hernia. Peritoneal cavity: No ascites, collection or mesenteric inflammatory response Reproductive organs: Within normal limits. Bones: Old bilateral rib fractures. Degenerative changes in the spine. Soft Tissues: Within normal limits. IMPRESSION: 1. Cholelithiasis. No biliary ductal dilatation. 2. Unremarkable pancreas on this CT examination. 3. Hepatomegaly and hepatic steatosis. 4. Findings were discussed with the emergency department on the date of the examination. RADIATION DOSE DELIVERED: 762.45mGy.cm Total DLP DATA REPOSITORY: All CT scans at this facility are submitted to the National Radiology Data Registry (NRDR) Dose Index Registry (DIR) with the [employer] (A[employer]). RADIATION OPTIMIZATION: All CT scans at this facility use at least one of these dose optimization te chniques: automated exposure control; mA and/or kV adjustment per patient size (includes targeted exa ms where dose is matched to clinical indication); or iterative reconstruction.
[2020-04-11] MEDS: MAGNESIUM SULFATE 8.12 MEQ, MULTIVITAMIN 10 ML, THIAMINE 100 MG, FOLIC ACID 1 MG in Nor... 200 MG IV (13:52)
[2020-04-11] MEDS: Normal Saline 1,000 ML 1000 ML IV (13:57)
--- NOTE | 2020-04-11 13:59 | INITIAL_ITS ---
- If Service Date Differs Date of service: 04/11/20 Time of Service: 15:27 Care Management Initial Assess REASON FOR HOSPITALIZATION:: ETOH Withdrawal, acute pancreatitis PAST MEDICAL HISTORY/PAST SURGICAL HISTORY:: 64 year old male with PMHx of long standing alcohol use disorder with history of prior alcohol withdrawal/DT's, but not seizures, as well as hypertension, hyperlipidemia (not on medications), CKD III, Hiatal hernia/GERD, and chronic back pain, whose last drink was reportedly at 6 pm yesterday whom the [facility] hospitalists were asked to admit for alcohol withdrawal. Alcohol use disorder, anemia in CKD, gout, hx of basal cell cancer, hyperlipidemia, hypertension, lumbar spondylosis, reflux esophagitis, renal insufficiency, partial resection of colon, replacement of total knee joint, stress test, ruptured extensor tendon of hand or wrist, hypokalemia, hypomagnesemia, transaminitis, total knee replacement, unintentional weight loss, GERD PREVIOUS FUNCTIONAL STATUS/SOCIAL/FAMILY SUPPORTS:: Mathew resides with his , Yen in [place], [place]. 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 His adult children reside locally and are supportive. He identifies with a Worship marcy and is independent at baseline. CURRENT FUNCTIONAL STATUS:: Mathew was seen in the ED last night for similar symptoms and decision was made for him to go home with outpatient treatment with Librium. Mathew saw Dr. Mcelroy today and was sent here for admission due to increase in symptoms, for medical managment of withdrawal. Doing much better today, waivering about attending [facility]; connected to motor coach chauffeur to determine outpatient plan. ADVANCE DIRECTIVES:: DPOA on file Yen is his agent Has patient been provided with info about the portal/API?: Yes Did the patient sign up for the portal?: Yes CODE STATUS:: Full Code INSURANCE COVERAGE / FINANCIAL ISSUES:: Medicare and BCBS CURRENT HOME/COMMUNITY SERVICES/EQUIPMENT:: None at this time PRIMARY CARE PHYSICIAN:: Dr. Wharton POTENTIAL DISCHARGE NEEDS:: Referral to inpatient treatment center vs Outpatient treatment program and community resources. PATIENT/FAMILY EDUCATION NEEDS:: Education, treatment options, medication management and withdrawal management. Education related to discharge planning, disposition and follow up plan of care. ANTICIPATED BARRIERS TO DISCHARGE:: Transfer to outpatient vs inpatient treatment program and bed availability. TRANSPORTATION:: Via private vehicle with his , or family. PLAN:: Mathew continues to receive medical management of ETOH withdrawal. CM to continue to provide support discharge planning and disposition. flag football coach referral initiated, Luis concerned about elevated lipase; notified [facility].
[2020-04-11 14:19] LABS: Bilirubin Negative (Negative); Blood Small (Negative); Clarity Clear (Clear); Glucose Negative (Negative); Ketones Trace mg/dL (Negative); Leukocyte Esterase Negative (Negative); Nitrite Negative (Negative); Specific Gravity 1.025 (1.005-1.025); Urobilinogen 0.2 EU/dL (Up TO 0.2)
[2020-04-11 14:33] LABS: WBC 0-2 HPF (0-5)
[2020-04-11 14:34] LABS: Bacteria Few HPF (Negative); C & S Indicated? No; Casts 0-2 Coarse Granular LPF (Negative); Crystals Few Amorphous HPF (Negative); Epithelial Cells Few HPF (Negative); Mucus Trace (Negative)
--- NOTE | 2020-04-11 14:49 | NUR.NOTE ---
Nursing Note:Attempt to call report Nurse not available.
--- NOTE | 2020-04-11 14:58 | NUR.NOTE ---
Nursing Note: Attempt to give report nurse not available. She will call back.
--- NOTE | 2020-04-11 15:49 | HPE_ITS ---
Date of service: 04/11/20 Time of Service: 15:49 History of Present Illness History of Present Illness Chief Complaint: intractable nausea/vomiting, alcohol withdrawal Narrative: Mr Mendez is a 65 year old male with PMHx of alcohol abu se, as well as CKD, hypertension, hyperlipidemia, and gout, who was sent to [facility] ED today by his PCP (Dr Mcelroy) for ongoing nausea/vomiting in setting of pancreatitis diagnosed in our ED yesterday as well as symptoms of alcohol withdrawal. [facility] Medical History Alcohol abuse Anemia in chronic kidney disease (CKD) Gout History of basal cell cancer (~06/2019) Left ear Hyperlipidemia Hypertension Lumbar spondylosis Reflux esophagitis (09/24/95) GERD in excess of 20 years. on PPI that entire time ?esophageal stricture Renal insufficiency (10/17/16) Surgical History H/O partial resection of colon s/p ostomy reversal Replacement of total knee joint 2013-RIGHT STRESS TEST (~01/2003) Family History Mother Breast cancer Father Heart disease Hyperlipidemia Sister Alcohol abuse Depression Sister Alcohol abuse Sister No problems noted. Brother Hyperlipidemia Brother No problems noted. Brother No problems noted. Brother No problems noted. Brother No problems noted. Maternal Grandfather No problems noted. Paternal Grandfather Alcohol abuse Hyperlipidemia Maternal Grandmother Alcohol abuse Paternal Grandmother Hyperlipidemia Stroke Son Testicular cancer Son No problems noted. Son No problems noted. Son No problems noted. Social History Smoking/Tobacco Use Status: Former Tobacco Use Smoking risk assessment performed?: Yes Alcohol Intake: current Alcohol Intake frequency: 3 or more drinks per day Alcohol type: hard liquor Counseling given: Yes Drug use: Never Substance use type: former substance user and marijuana Household members: spouse current occupation: [employer] Pets and animals: Yes Pets and animals: dog(s) Duration: > 90 minutes/day Frequency: daily Hoa/Yarsani: [employer] Special hoa needs: No Do you feel safe at home: Yes Do you feel safe in your relationship?: Yes Meds Home Medications and Allergies Home Medications Medication Instructions Recorded Confirmed Type allopurinol 100 mg tablet 100 mg PO DAILY #90 tab-cap 05/08/19 04/11/20 Rx thiamine HCl (vitamin B1) 100 mg 100 mg PO DAILY 05/15/19 04/11/20 History tablet lansoprazole 30 mg capsule,delayed 30 mg PO DAILY #90 tab-cap 05/22/19 04/11/20 Rx release metoprolol succinate 100 mg 100 mg PO DAILY #90 tab 10/06/19 04/11/20 Rx tablet,extended release 24 hr lisinopril 5 mg tablet 5 mg PO DAILY #90 tab 12/08/19 04/11/20 Rx amlodipine 5 mg tablet 5 mg PO DAILY #90 tab-cap 12/16/19 04/11/20 Rx diazepam 5 mg tablet 5 mg PO Q6H PRN #10 tab 04/11/20 04/11/20 Rx ondansetron 8 mg disintegrating 8 mg PO Q8H PRN #10 tab 04/11/20 04/11/20 Rx tablet Allergies Allergy/AdvReac Type Severity Reaction Status Date / Time morphine Allergy Intermediate HIVES/RASH Verified 04/11/20 12:40 Results Labs Result diagrams: 04/11/20 12:40 04/11/20 12:40 Labs: Laboratory Results - last 24 hr 04/11/20 04/11/20 04/11/20 12:40 12:40 12:40 WBC 8.48 D RBC 3.66 L Hgb 11.8 L Hct 34.3 L MCV 93.7 MCH 32.2 MCHC 34.4 RDW 15.0 H Plt Count 189 MPV 10.9 Immature Gran % 0.2 Neutrophils % 90.1 Lymphocytes % 4.2 Monocytes % 4.6 Eosinophils % 0.2 Basophils % 0.7 Nucleated RBC % 0 Absolute Neutrophils 7.64 H Absolute Lymphocytes 0.36 L Absolute Monocytes 0.39 Absolute Eosinophils 0.02 Absolute Basophils 0.06 PT 9.2 L INR 0.9 APTT 21.9 Sodium 139 Potassium 4.4 Chloride 102 Carbon Dioxide 18.3 L Anion Gap 18.7 H BUN 43 H Creatinine 2.52 H Estimated GFR/1.73 m2 25.73 Glucose 131 H Calcium 10.1 Magnesium 1.9 Total Bilirubin 0.5 AST 73 H ALT 81 H Alkaline Phosphatase 79 Troponin I < 0.05 Total Protein 8.0 Albumin 4.3 Lipase Urine Color Urine Clarity Urine pH Ur Specific [place] Urine Protein Urine Ketones Urine Blood Urine Nitrite Urine Bilirubin Urine Urobilinogen Ur Leukocyte Esterase Urine RBC Urine WBC Ur Epithelial Cells Urine Crystals Urine Bacteria Urine Casts Urine Mucus Ur Culture Indicated? Urine Glucose Ethyl Alcohol < 3.0 04/11/20 04/11/20 12:40 14:10 WBC RBC Hgb Hct MCV MCH MCHC RDW Plt Count MPV Immature Gran % Neutrophils % Lymphocytes % Monocytes % Eosinophils % Basophils % Nucleated RBC % Absolute Neutrophils Absolute Lymphocytes Absolute Monocytes Absolute Eosinophils Absolute Basophils PT INR APTT Sodium Potassium Chloride Carbon Dioxide Anion Gap BUN Creatinine Estimated GFR/1.73 m2 Glucose Calcium Magnesium Total Bilirubin AST ALT Alkaline Phosphatase Troponin I Total Protein Albumin Lipase 799 H Urine Color Yellow Urine Clarity Clear Urine pH 6.0 Ur Specific [place] 1.025 Urine Protein 100 H Urine Ketones Trace H Urine Blood Small H Urine Nitrite Negative Urine Bilirubin Negative Urine Urobilinogen 0.2 Ur Leukocyte Esterase Negative Urine RBC 3-5 H Urine WBC 0-2 Ur Epithelial Cells Few Urine Crystals Few amorphous Urine Bacteria Few Urine Casts 0-2 coarse granular Urine Mucus Trace Ur Culture Indicated? No Urine Glucose Negative Ethyl Alcohol Last Vital Signs Temp 37.1 C 04/11/20 12:34 Pulse 94 H 04/11/20 15:16 Resp 21 04/11/20 15:20 BP 160/97 H 04/11/20 15:16 Pulse Ox 97 04/11/20 15:16 COVID-19 Screening Have you, or household traveled for leisure in last 14 days?: No Had IN PERSON contact w/suspected or confirmed C-19 person: No
[2020-04-11] MEDS: Enoxaparin 40 MG/0.4 ML SYR SC (16:15)
--- NOTE | 2020-04-11 16:46 | W.PM.HP.N ---
Date of service: 04/11/20 Time of Service: 16:46 Assessment and Plan Assessment and plan (1) Alcohol withdrawal: Start date: 04/11/20 Start time: 17:10 Status: Acute Assessment and plan: Presents to ED with hypertension, tachycardia, overall generalized feeling of anxiety Last drink was 3 pm yesterday afternoon he does have shaking Qualifiers: Complication of substance-induced condition: uncomplicated Qualified Code(s): F10.230 - Alcohol dependence with withdrawal, uncomplicated (2) Acute pancreatitis: Start date: 04/11/20 Start time: 17:12 Status: Acute Assessment and plan: With nausea and vomiting prior to admission. Lipase yesterday 1126 down to 799 today. He has only had one episode of vomiting this am none since admission He will be started on clears with advance as tolerated IVF of NS at 200 ml/hr Qualifiers: Pancreatitis type: alcohol induced Acute pancreatitis complication: unspecified Qualified Code(s): K85.20 - Alcohol induced acute pancreatitis without necrosis or infection (3) Elevated lipase: Start date: 04/11/20 Start time: 17:11 Status: Acute Assessment and plan: As above (4) Acute on chronic renal insufficiency: Start date: 04/11/20 Start time: 17:13 Status: Acute Assessment and plan: Slightly elevated from baseline as of yesterday improving closer to baseline today. IV hydration and monitor BMP in am (5) Discharge planning issues: Start date: 04/11/20 Start time: 17:14 Status: Acute Assessment and plan: He will be discharged home with women's lacrosse coach and community services. (6) DVT prophylaxis: Start date: 04/11/20 Start time: 17:14 Status: Acute Assessment and plan: Teds and SCD above case discussed with Dr. Everett who is in agreement. History of Present Illness History of Present Illness Chief Complaint: Alcohol withdrawal, pancreatitis Narrative: Mr. Mendez is a 65 y.o male with PMH of alcohol abuse, as well as CKD, htn, hyperlipidemia, and gout presented to [facility] ED sent by his PCP (Dr. Brand) for nausea/vomiting, tachycardia, and withdrawal of alcohol after being diagnosed with pancreatitis in the ED yesterday. Mr. Mendez endorses vomiting x 1 today. He tried to withdrawal from alcohol a couple of days ago but while out hunting started to have severe shakes and anxiety prompting him to go to the ED yesterday. In the ED he was found to have a lipase of 1126, he was given a dose of ativan and librium for discharge home. He states he took the libruim overnight and this morning and felt ok however he started to feel pounding in his chest and shaking that was not easy to control prompting him to return to the ED. Today in the ED his lipase has improved from 1126 to 799. Renal function stable but slightly improved from 2.66 to 2.52. He has been asked to be admitted to m/s for further management. He will be on CIWA precautions, he states he only vomited once today, he denies abd pain, back pain. We will start him on clears. Teley due to tachycardia. He is feeling well at this time. Monitor for CIWA Review of Systems All systems reviewed & are unremarkable except as noted in HPI and below PFSH Medical History Alcohol abuse Anemia in chronic kidney disease (CKD) Gout History of basal cell cancer (~06/2019) Left ear Hyperlipidemia Hypertension Lumbar spondylosis Reflux esophagitis (09/24/95) GERD in excess of 20 years. on PPI that entire time ?esophageal stricture Renal insufficiency (10/17/16) Surgical History H/O partial resection of colon s/p ostomy reversal Replacement of total knee joint 2012-RIGHT STRESS TEST (~01/2003) Family History Mother Breast cancer Father Heart disease Hyperlipidemia Sister Alcohol abuse Depression Sister Alcohol abuse Sister No problems noted. Brother Hyperlipidemia Brother No problems noted. Brother No problems noted. Brother No problems noted. Brother No problems noted. Maternal Grandfather No problems noted. Paternal Grandfather Alcohol abuse Hyperlipidemia Maternal Grandmother Alcohol abuse Paternal Grandmother Hyperlipidemia Stroke Son Testicular cancer Son No problems noted. Son No problems noted. Son No problems noted. Social History Smoking/Tobacco Use Status: Former Tobacco Use Smoking risk assessment performed?: Yes Alcohol Intake: current Alcohol Intake frequency: 3 or more drinks per day Alcohol type: hard liquor Counseling given: Yes Drug use: Never Substance use type: former substance user and marijuana Household members: spouse current occupation: [employer] Pets and animals: Yes Pets and animals: dog(s) Duration: > 90 minutes/day Frequency: daily Hoa/Spiritism: Druze Special hoa needs: No Do you feel safe at home: Yes Do you feel safe in your relationship?: Yes Meds Home Medications and Allergies Home Medications Medication Instructions Recorded Confirmed Type allopurinol 100 mg tablet 100 mg PO DAILY #90 tab-cap 05/08/19 04/11/20 Rx thiamine HCl (vitamin B1) 100 mg 100 mg PO DAILY 05/15/19 04/11/20 History tablet lansoprazole 30 mg capsule,delayed 30 mg PO DAILY #90 tab-cap 05/22/19 04/11/20 Rx release metoprolol succinate 100 mg 100 mg PO DAILY #90 tab 10/06/19 04/11/20 Rx tablet,extended release 24 hr lisinopril 5 mg tablet 5 mg PO DAILY #90 tab 12/08/19 04/11/20 Rx amlodipine 5 mg tablet 5 mg PO DAILY #90 tab-cap 12/16/19 04/11/20 Rx diazepam 5 mg tablet 5 mg PO Q6H PRN #10 tab 04/11/20 04/11/20 Rx ondansetron 8 mg disintegrating 8 mg PO Q8H PRN #10 tab 04/11/20 04/11/20 Rx tablet Allergies Allergy/AdvReac Type Severity Reaction Status Date / Time morphine Allergy Intermediate HIVES/RASH Verified 04/11/20 12:40 Exam Const General: cooperative, comfortable, no acute distress and ill appearing chronically Orientation: alert, awake and oriented x3 HENMT Head: normal to inspection Eyes General: appearance normal, both eyes and all related structures Eyelids: eyelids normal Sclera: sclerae normal Pupils: PERRL EOM: EOM intact bilaterally Neck Neck: normal visual inspection, full ROM and no JVD Lymphatic: no lymphadenopathy noted and no lymphedema noted Chest Chest: normal inspection of the chest Resp Effort & Inspection: normal respiratory effort Auscultation: clear to auscultation bilaterally Cardio Jugular venous pressure: no JVD Rate: regular rate and tachycardic Rhythm: regular rhythm Heart Sounds: S1 normal and S2 normal GI Inspection: normal to inspection Palpation: soft and no hepatosplenomegaly Auscultation: normal bowel sounds Back/Spine/Pelvis Back: no CVA tenderness Skin General skin exam: no rashes or lesions noted Neuro General: patient alert, patient awake and patient oriented x3 Extrem General: normal to inspection, full ROM and no clubbing, cyanosis or edema Psych Appearance: grossly normal Speech and Movement: speech and movement normal Results Labs Result diagrams: 04/11/20 12:40 04/11/20 12:40 Labs: Laboratory Results - last 24 hr 04/11/20 04/11/20 04/11/20 12:40 12:40 12:40 WBC 8.48 D RBC 3.66 L Hgb 11.8 L Hct 34.3 L MCV 93.7 MCH 32.2 MCHC 34.4 RDW 15.0 H Plt Count 189 MPV 10.9 Immature Gran % 0.2 Neutrophils % 90.1 Lymphocytes % 4.2 Monocytes % 4.6 Eosinophils % 0.2 Basophils % 0.7 Nucleated RBC % 0 Absolute Neutrophils 7.64 H Absolute Lymphocytes 0.36 L Absolute Monocytes 0.39 Absolute Eosinophils 0.02 Absolute Basophils 0.06 PT 9.2 L INR 0.9 APTT 21.9 Sodium 139 Potassium 4.4 Chloride 102 Carbon Dioxide 18.3 L Anion Gap 18.7 H BUN 43 H Creatinine 2.52 H Estimated GFR/1.73 m2 25.73 Glucose 131 H Calcium 10.1 Magnesium 1.9 Total Bilirubin 0.5 AST 73 H ALT 81 H Alkaline Phosphatase 79 Troponin I < 0.05 Total Protein 8.0 Albumin 4.3 Lipase Urine Color Urine Clarity Urine pH Ur Specific [place] Urine Protein Urine Ketones Urine Blood Urine Nitrite Urine Bilirubin Urine Urobilinogen Ur Leukocyte Esterase Urine RBC Urine WBC Ur Epithelial Cells Urine Crystals Urine Bacteria Urine Casts Urine Mucus Ur Culture Indicated? Urine Glucose Ethyl Alcohol < 3.0 04/11/20 04/11/20 12:40 14:10 WBC RBC Hgb Hct MCV MCH MCHC RDW Plt Count MPV Immature Gran % Neutrophils % Lymphocytes % Monocytes % Eosinophils % Basophils % Nucleated RBC % Absolute Neutrophils Absolute Lymphocytes Absolute Monocytes Absolute Eosinophils Absolute Basophils PT INR APTT Sodium Potassium Chloride Carbon Dioxide Anion Gap BUN Creatinine Estimated GFR/1.73 m2 Glucose Calcium Magnesium Total Bilirubin AST ALT Alkaline Phosphatase Troponin I Total Protein Albumin Lipase 799 H Urine Color Yellow Urine Clarity Clear Urine pH 6.0 Ur Specific [place] 1.025 Urine Protein 100 H Urine Ketones Trace H Urine Blood Small H Urine Nitrite Negative Urine Bilirubin Negative Urine Urobilinogen 0.2 Ur Leukocyte Esterase Negative Urine RBC 3-5 H Urine WBC 0-2 Ur Epithelial Cells Few Urine Crystals Few amorphous Urine Bacteria Few Urine Casts 0-2 coarse granular Urine Mucus Trace Ur Culture Indicated? No Urine Glucose Negative Ethyl Alcohol Last Vital Signs Temp 38 C H 04/11/20 16:01 Pulse 105 H 04/11/20 16:30 Resp 20 04/11/20 16:01 BP 162/94 H 04/11/20 16:01 Pulse Ox 98 04/11/20 16:01 COVID-19 Screening Have you, or household traveled for leisure in last 14 days?: No Had IN PERSON contact w/suspected or confirmed C-19 person: No
[2020-04-11] MEDS: Normal Saline 250 ML 200 ML IV (17:12)
[2020-04-11] MEDS: Normal Saline 1,000 ML 200 ML IV (20:29)
[2020-04-12] VITALS (9 sets, daily range): BP systolic 128–162; BP diastolic 81–99; PULSE 78–96; RESP 14–18; TEMP 35.7–37.2; O2SAT 95–99
[2020-04-12] MEDS: Normal Saline 1,000 ML 200 ML IV ×2 (01:23→06:29)
[2020-04-12 07:27] LABS: Abs Immature Grans 0.01 10^3/uL (0.0-0.06); Absolute Basophil Count 0.02 10^3/uL (0.0-0.2); Absolute Eosinophil Count 0.16 10^3/uL (0.0-0.7); Absolute Lymphocyte Count 0.48 10^3/uL (1.2-3.4); Absolute Neutrophil Count 2.19 10^3/uL (1.2-6.7); Basophils % 0.6; Eosinophils % 4.9; HGB 10.9 g/dL (13.5-17.5); Immature Grans % 0.3; Lymphocytes % 14.7; MCH 32.2 pg (27.0-33.0); MCHC 34.1 % (32.0-36.0); MCV 94.7 fL (80-95); MPV 11.1 fL (8.0-11.0); Monocytes % 12.3; Neutrophils % 67.2; Nucleated RBC 0 %; Platelet Count 126 10^3/uL (130-400); RBC 3.38 10^6/uL (4.36-5.78); RDW 14.6 % (11.8-14.1); WBC 3.26 10^3/uL (4.4-10.8)
[2020-04-12 07:40] LABS: ALT 58 U/L (16-63); AST 41 U/L (15-37); Albumin 3.4 g/dL (3.4-5.0); Alkaline Phosphatase 67 U/L (46-116); Anion Gap 9.3 mmol/L (3-11); BUN 29 mg/dL (7-18); Bilirubin, Total 0.5 mg/dL (0.2-1.0); CO2 22.7 mmol/L (21.0-32.0); CREATININE 1.84 mg/dL (0.70-1.30); Calcium 8.7 mg/dL (8.5-10.1); Chloride 106 mmol/L (98-107); Estimated GFR 36.99 (mL/min/1.73m2); Glucose 98 mg/dL (74-106); Potassium 3.9 mmol/L (3.5-5.1); Sodium 138 mmol/L (136-145); Total Protein 6.5 g/dL (6.4-8.2)
[2020-04-12 08:01] LABS: Bilirubin, Direct 0.14 mg/dL (0.00-0.20); Lipase 1104 U/L (73-393)
[2020-04-12 08:12] LABS: COVID-19 RT-PCR UVMMC Result Negative (Negative)
[2020-04-12 08:21] LABS: Hemoglobin A1C 4.9 % (<5.7)
[2020-04-12] MEDS: Multivitamin TAB 1 TAB PO (08:41)
[2020-04-12] MEDS: Thiamine 100 MG TAB PO (08:41)
[2020-04-12] MEDS: Folic Acid 1 MG TAB PO (08:41)
--- NOTE | 2020-04-12 08:41 | W.PM.PROGNOT ---
Date of Service Date of service: 04/12/20 Time of Service: 08:41 Assessment and Plan Assessment and plan (1) Alcohol withdrawal: Status: Acute Assessment and plan: no signs of withdrawal on evaluation. ciwa score has been zero. Qualifiers: Complication of substance-induced condition: uncomplicated Qualified Code(s): F10.230 - Alcohol dependence with withdrawal, uncomplicated (2) Acute pancreatitis: Status: Acute Assessment and plan: pain resolved. He will be started on clears with advance as tolerated stop IV fluids Qualifiers: Acute pancreatitis complication: unspecified Pancreatitis type: alcohol induced Qualified Code(s): K85.20 - Alcohol induced acute pancreatitis without necrosis or infection (3) Elevated lipase: Status: Acute Assessment and plan: As above (4) Acute on chronic renal insufficiency: Status: Acute Assessment and plan: improving IV hydration and monitor BMP in am (5) Discharge planning issues: Status: Acute Assessment and plan: He will be discharged home with assistant strength coach and community services. (6) DVT prophylaxis: Status: Acute Assessment and plan: Teds and SCD (7) Discharge planning issues: Status: Acute Assessment and plan: case management following, referrals to [place] placed and pending. discussed with Dr Everett who is in agreement Subjective Subjective Patient reports: no new complaints, feels better, pain is less, tolerating liquids well, tolerating a regular diet, voiding w/o difficulty and flatus Exam Const General: cooperative, comfortable, no acute distress and ill appearing chronically Orientation: alert, awake and oriented x3 HENMT Head: normal to inspection Eyes General: appearance normal, both eyes and all related structures Eyelids: eyelids normal Sclera: sclerae normal Pupils: PERRL EOM: EOM intact bilaterally Neck Neck: normal visual inspection, full ROM and no JVD Lymphatic: no lymphadenopathy noted and no lymphedema noted Chest Chest: normal inspection of the chest Resp Effort & Inspection: normal respiratory effort Auscultation: clear to auscultation bilaterally Cardio Jugular venous pressure: no JVD Rate: regular rate and tachycardic Rhythm: regular rhythm Heart Sounds: S1 normal and S2 normal GI Inspection: normal to inspection Palpation: soft and no hepatosplenomegaly Auscultation: normal bowel sounds Back/Spine/Pelvis Back: no CVA tenderness Skin General skin exam: no rashes or lesions noted Neuro General: patient alert, patient awake and patient oriented x3 Extrem General: normal to inspection, full ROM and no clubbing, cyanosis or edema Psych Appearance: grossly normal Speech and Movement: speech and movement normal Objective Last Vital Signs Temp 36.7 C 04/12/20 08:07 Pulse 78 04/12/20 08:07 Resp 17 04/12/20 08:07 BP 162/90 H 04/12/20 08:07 Pulse Ox 96 04/12/20 08:07 Laboratory Results - last 24 hr 04/11/20 04/11/20 04/11/20 12:40 12:40 12:40 WBC 8.48 D RBC 3.66 L Hgb 11.8 L Hct 34.3 L MCV 93.7 MCH 32.2 MCHC 34.4 RDW 15.0 H Plt Count 189 MPV 10.9 Immature Gran % 0.2 Neutrophils % 90.1 Lymphocytes % 4.2 Monocytes % 4.6 Eosinophils % 0.2 Basophils % 0.7 Nucleated RBC % 0 Absolute Neutrophils 7.64 H Absolute Lymphocytes 0.36 L Absolute Monocytes 0.39 Absolute Eosinophils 0.02 Absolute Basophils 0.06 PT 9.2 L INR 0.9 APTT 21.9 Sodium 139 Potassium 4.4 Chloride 102 Carbon Dioxide 18.3 L Anion Gap 18.7 H BUN 43 H Creatinine 2.52 H Estimated GFR/1.73 m2 25.73 Glucose 131 H Hemoglobin A1c Calcium 10.1 Magnesium 1.9 Total Bilirubin 0.5 Conjugated Bilirubin AST 73 H ALT 81 H Alkaline Phosphatase 79 Troponin I < 0.05 Total Protein 8.0 Albumin 4.3 Lipase Urine Color Urine Clarity Urine pH Ur Specific [place] Urine Protein Urine Ketones Urine Blood Urine Nitrite Urine Bilirubin Urine Urobilinogen Ur Leukocyte Esterase Urine RBC Urine WBC Ur Epithelial Cells Urine Crystals Urine Bacteria Urine Casts Urine Mucus Ur Culture Indicated? Urine Glucose Ethyl Alcohol < 3.0 COVID-19 PCR Nasopharyn COVID-19 PCR Ref Test Perform Site 04/11/20 04/11/20 04/11/20 12:40 14:10 14:10 WBC RBC Hgb Hct MCV MCH MCHC RDW Plt Count MPV Immature Gran % Neutrophils % Lymphocytes % Monocytes % Eosinophils % Basophils % Nucleated RBC % Absolute Neutrophils Absolute Lymphocytes Absolute Monocytes Absolute Eosinophils Absolute Basophils PT INR APTT Sodium Potassium Chloride Carbon Dioxide Anion Gap BUN Creatinine Estimated GFR/1.73 m2 Glucose Hemoglobin A1c Calcium Magnesium Total Bilirubin Conjugated Bilirubin AST ALT Alkaline Phosphatase Troponin I Total Protein Albumin Lipase 799 H Urine Color Yellow Urine Clarity Clear Urine pH 6.0 Ur Specific [place] 1.025 Urine Protein 100 H Urine Ketones Trace H Urine Blood Small H Urine Nitrite Negative Urine Bilirubin Negative Urine Urobilinogen 0.2 Ur Leukocyte Esterase Negative Urine RBC 3-5 H Urine WBC 0-2 Ur Epithelial Cells Few Urine Crystals Few amorphous Urine Bacteria Few Urine Casts 0-2 coarse granular Urine Mucus Trace Ur Culture Indicated? No Urine Glucose Negative Ethyl Alcohol COVID-19 PCR Negative Nasopharyn COVID-19 PCR Not Applicable Ref Test Perform Site [facility] 04/12/20 04/12/20 04/12/20 06:45 06:45 06:45 WBC 3.26 L D RBC 3.38 L Hgb 10.9 L Hct 32.0 L MCV 94.7 MCH 32.2 MCHC 34.1 RDW 14.6 H Plt Count 126 L MPV 11.1 H Immature Gran % 0.3 Neutrophils % 67.2 Lymphocytes % 14.7 Monocytes % 12.3 Eosinophils % 4.9 Basophils % 0.6 Nucleated RBC % 0 Absolute Neutrophils 2.19 Absolute Lymphocytes 0.48 L Absolute Monocytes 0.40 Absolute Eosinophils 0.16 Absolute Basophils 0.02 PT INR APTT Sodium 138 Potassium 3.9 Chloride 106 Carbon Dioxide 22.7 Anion Gap 9.3 BUN 29 H D Creatinine 1.84 H Estimated GFR/1.73 m2 36.99 Glucose 98 Hemoglobin A1c 4.9 Calcium 8.7 Magnesium 2.0 Total Bilirubin 0.5 Conjugated Bilirubin 0.14 AST 41 H ALT 58 Alkaline Phosphatase 67 Troponin I Total Protein 6.5 Albumin 3.4 Lipase 1104 H Urine Color Urine Clarity Urine pH Ur Specific [place] Urine Protein Urine Ketones Urine Blood Urine Nitrite Urine Bilirubin Urine Urobilinogen Ur Leukocyte Esterase Urine RBC Urine WBC Ur Epithelial Cells Urine Crystals Urine Bacteria Urine Casts Urine Mucus Ur Culture Indicated? Urine Glucose Ethyl Alcohol COVID-19 PCR Nasopharyn COVID-19 PCR Ref Test Perform Site
--- NOTE | 2020-04-12 10:39 | W.NUTCONSULT ---
Date of service: 04/12/20 Time of Service: 10:39 Nutritional Consult ASSESSMENT: 65 year old male admitted with ETOH withdrawl with acute pancreatitis. PMH: CKD, HTN, unintensional weight loss. Lipase 1126 H. BMI wnl for age, weight has been stable > 1 year. Diet advanced to low fat today at lunch. Dietary aware. Meds include MVI, thiamin and folic acid for repletion. At nutritional risk in view of impaired nutrient utilization and increased nutrient needs in view of hx of ETOH abuse. Estimated Needs: [id number] kcal, 70-80 g protein, 2100 ml fluid. NUTRITIONAL DIAGNOSIS: Impaired nutrient utilization due to pancreatitis INTERVENTION: Low fat diet MONITORING AND EVALUATION: po intake, labs, weight, tolerance to diet advancement Time Spent in Nutritional Counseling and Treatment: 0 time
--- NOTE | 2020-04-12 16:12 | CHAPLAIN ---
Mathew was reading a book his daughter in law had given him, when I visited. He easily engaged in a conversation telling me about being diagnosed with pancreatitis, although his is not experiencing an pain from that. He said he is also going with alcohol withdrawal, but is so far is doing ok with that to. He shared some personal history, telling me about another time going through withdrawal and then staying at [facility] for inpatient rehab. He is clear about what stressors led him back to drinking, and he identifies what his best supports are (AA meetings, a sponsor, prayer). Because of COVID some AA meetings are being held on line now and not as easy to access, Mathew said. He is aware of alcoholism in his family. He was raised [employer] and most recently attended a [employer] with family members, and said he may try that again.
[2020-04-12] MEDS: Enoxaparin 40 MG/0.4 ML SYR SC (16:41)
[2020-04-12] MEDS: amLODIPine 5 MG TAB PO (17:47)
[2020-04-13] MEDS: Mylanta Suspension 30 ML CUP PO (01:58)
[2020-04-13 01:59] VITALS: BP 135/88; PULSE 89; RESP 16; TEMP 36.6; O2SAT 97
[2020-04-13 07:34] VITALS: BP 147/91; PULSE 105; RESP 19; TEMP 36.8; O2SAT 99
[2020-04-13 08:20] VITALS: PULSE 86
[2020-04-13 08:35] VITALS: O2SAT 99
[2020-04-13] MEDS: Lansoprazole 30 MG CAPCR PO (08:37)
[2020-04-13] MEDS: amLODIPine 5 MG TAB PO (08:38)
[2020-04-13] MEDS: Multivitamin TAB 1 TAB PO (08:38)
[2020-04-13] MEDS: Allopurinol 100 MG TAB PO (08:38)
[2020-04-13] MEDS: Thiamine 100 MG TAB PO (08:39)
[2020-04-13] MEDS: Lisinopril 5 MG TAB PO (08:39)
[2020-04-13] MEDS: Metoprolol CR 100 MG TABCR PO (08:39)
[2020-04-13] MEDS: Folic Acid 1 MG TAB PO (08:39)
--- NOTE | 2020-04-13 10:37 | DSE_ITS ---
Date of service: 04/13/20 Time of Service: 10:37 DS: Diagnosis Discharge Diagnosis (1) Alcohol withdrawal: Status: Acute (2) Acute pancreatitis: Status: Acute (3) Acute on chronic renal insufficiency: Status: Acute Discharge Plan Disposition Patient Disposition: HOME Condition: Stable Discharge Details Reason For Visit: ACUTE PANCREATITIS,ALCOHOL WITHDRAWAL Admit Date/Time: 04/11/20 13:25 Admit Provider: Peg Everett Attending Provider: Peg Everett Primary Care Provider: Jovani Wharton [facility] Course Hospital Course: Mr. Mendez is a 65 y.o male with PMH of alcohol abuse, as well as CKD, htn, hyperlipidemia, and gout presented to [facility] ED as instructed by pcp office for complaints of ongoing nausea/vomiting, tachycardia, and withdrawal of alcohol. He was seen the day prior and was discharged home for outpatient treatment. He was started on IV hydration, antiemetics and given ativan for his symptoms. He is referred to observation on med/surg for further evaluation and monitoring. On med/surg his symptoms quickly resolved. His abdominal pain resolved and his diet advanced which he is tolerating well. He has been scoring 0 on ciwa and is voicing no c/o. his tachycardia has resolved and his vitals have been stable. His IV fluids discontinued and he will be discharged to home. He declines [facility] admission for alcohol rehabilitation and wishes for discharge to home to f/ with his acetone recovery worker. he is being discharged to home with no services. discussed with Dr Everett who is in agreement. Home Meds and New Rx's Prescriptions: Continued thiamine HCl (vitamin B1) 100 mg tablet 100 mg PO DAILY RF: 0 ondansetron 8 mg tablet,disintegrating 8 mg PO Q8H PRN (Reason: nausea and vomiting) Qty: 10 RF: 0 diazepam 5 mg tablet 5 mg PO Q6H PRN (Reason: alcohol withdrawal) Qty: 10 RF: 0 allopurinol 100 mg tablet 100 mg PO DAILY Qty: 90 RF: 3 lansoprazole [Prevacid] 30 mg capsule,delayed release(DR/EC) 30 mg PO DAILY Qty: 90 RF: 3 metoprolol succinate 100 mg tablet extended release 24 hr 100 mg PO DAILY Qty: 90 RF: 3 lisinopril 5 mg tablet 5 mg PO DAILY Qty: 90 RF: 3 amlodipine 5 mg tablet 5 mg PO DAILY Qty: 90 RF: 3 Discharge Instructions Instructions: Pancreatitis (DC), Abuse of Alcohol (DC) Additional Instructions: Avoid alcohol. Follow up with your acetone recovery worker as arranged. Eating a well balanced, health diet. Drink 6-8 glasses of water daily to stay well hydrated. Continue daily walks. Stand Alone Forms: Nursing Discharge Form Referrals: Jovani Wharton DO [Primary Care Provider] - 04/15/20 8:00 am () Activity:: Activity as Tolerated Equipment/Supplies:: No Equipment Needed Diet:: As Tolerated Discharge Orders Discharge Orders: Discharge Order (Routine); Ordered 04/13/20 Ordered By: Dionne Keane DS: Summary Status at Discharge Functional status at discharge: independent ambulation Overall status at discharge: patient is progressing back to baseline Mental Status: mental status grossly normal Speech and Movement: speech and movement normal Mood: congruent mood Affect: normal affect Exam Const General: cooperative, comfortable, no acute distress and ill appearing chronically Orientation: alert, awake and oriented x3 HENMT Head: normal to inspection Eyes General: appearance normal, both eyes and all related structures Eyelids: eyelids normal Sclera: sclerae normal Pupils: PERRL EOM: EOM intact bilaterally Neck Neck: normal visual inspection, full ROM and no JVD Lymphatic: no lymphadenopathy noted and no lymphedema noted Chest Chest: normal inspection of the chest Resp Effort & Inspection: normal respiratory effort Auscultation: clear to auscultation bilaterally Cardio Jugular venous pressure: no JVD Rate: regular rate and tachycardic Rhythm: regular rhythm Heart Sounds: S1 normal and S2 normal GI Inspection: normal to inspection Palpation: soft and no hepatosplenomegaly Auscultation: normal bowel sounds Back/Spine/Pelvis Back: no CVA tenderness Skin General skin exam: no rashes or lesions noted Neuro General: patient alert, patient awake and patient oriented x3 Extrem General: normal to inspection, full ROM and no clubbing, cyanosis or edema Psych Appearance: grossly normal Mental Status: mental status grossly normal Speech and Movement: speech and movement normal Mood: congruent mood Affect: normal affect DS: Data Vitals/I&O Vitals and I&O: Vital Signs Temperature 36.8 C 04/13/20 07:34 Temperature Source Tympanic 04/13/20 07:34 Pulse 86 04/13/20 08:20 Pulse Rhythm Regular 04/13/20 06:13 Pulse 111 H 04/11/20 15:20 Respiratory Rate 19 04/13/20 07:34 Respiratory Effort Non-Labored 04/13/20 06:13 Respiratory Depth Normal 04/13/20 06:13 Respiratory Pattern Normal 04/13/20 06:13 Blood Pressure 147/91 H 04/13/20 07:34 Blood Pressure Mean 112 04/11/20 15:16 Blood Pressure Position Sitting 04/11/20 12:34 Pulse Oximetry 99 04/13/20 07:34 Oxygen Delivery Method Room Air 04/13/20 07:34 Oxygen Flow Rate 0 04/13/20 07:34 Pain Level 0 04/13/20 01:59 Intake & Output 04/12/20 04/12/20 04/13/20 11:59 23:59 11:59 Intake Total 2670 / 3670 1000 / 3670 120 / 120 Balance 2670 / 3670 1000 / 3670 120 / 120 Weight 70.5 kg 69 kg Intake: IV 1980 / 2980 1000 / 2980 Oral 690 / 690 120 / 120 Other: Urine Color Yellow Urine Appearance Clear Clear Clear Comment independant independant Voiding Methods Toilet [facility] Medical History Alcohol abuse Anemia in chronic kidney disease (CKD) Gout History of basal cell cancer (~06/2019) Left ear Hyperlipidemia Hypertension Lumbar spondylosis Reflux esophagitis (09/24/95) GERD in excess of 20 years. on PPI that entire time ?esophageal stricture Renal insufficiency (10/17/16) Surgical History H/O partial resection of colon s/p ostomy reversal Replacement of total knee joint 2012-RIGHT STRESS TEST (~01/2003) Family History Mother Breast cancer Father Heart disease Hyperlipidemia Sister Alcohol abuse Depression Sister Alcohol abuse Sister No problems noted. Brother Hyperlipidemia Brother No problems noted. Brother No problems noted. Brother No problems noted. Brother No problems noted. Maternal Grandfather No problems noted. Paternal Grandfather Alcohol abuse Hyperlipidemia Maternal Grandmother Alcohol abuse Paternal Grandmother Hyperlipidemia Stroke Son Testicular cancer Son No problems noted. Son No problems noted. Son No problems noted. Social History Smoking/Tobacco Use Status: Former Tobacco Use Smoking risk assessment performed?: Yes Alcohol Intake: current Alcohol Intake frequency: 3 or more drinks per day Alcohol type: hard liquor Counseling given: Yes Drug use: Never Substance use type: former substance user and marijuana Household members: spouse current occupation: [employer] Pets and animals: Yes Pets and animals: dog(s) Duration: > 90 minutes/day Frequency: daily Hoa/Yarsanism: Yazidism Special hoa needs: No Do you feel safe at home: Yes Do you feel safe in your relationship?: Yes
[2020-04-13 11:07] VITALS: BP 134/93; PULSE 86; RESP 19; TEMP 36.7; O2SAT 94
--- NOTE | 2020-04-13 16:16 | PDOC.CMDIS ---
- If Service Date Differs Date of service: 04/13/20 Time of Service: 16:16 LACE Index Scoring Tool - Questions: Length of Stay (in days): 3 Acuity (Admit via E.D.?): Yes Comorbidities: Mild Liver/Renal Disease E.D. Visits: 4 - Answers: Total Score: 12 Risk of Readmission: High Risk Care Management Discharge Reason for Hospitalization: ETOH Withdrawal, acute pancreatitis Discharge Plan: Mathew will return home with support from the local manager disaster recovery. He will be driven home via private vehicle by his when ready. He will follow up with his PCP and discharge plan of care. He is happy to be going home, and is hopeful that with the support he has in place he will be able to stay sober. Patient/Family Education Needs: Review discharge instructions regarding activity levels and medications, discussion of self care needs including ask me three.
== END 2020-04-13 13:37 | disposition home or self-care (01) ==
LOC: ER 13:47 → MS 15:33
PROVIDERS: Admitting Provider Internal Medicine; Emergency Provider Physician Assistant; PCP Emergency Medicine; Visit Provider Internal Medicine
DX: F10.230 Alcohol dependence with withdrawal, uncomplicated (principal); K85.20 Alcohol induced acute pancreatitis without necrosis or infection; N18.9 Chronic kidney disease, unspecified; N28.89 Other specified disorders of kidney and ureter
CPT/HCPCS: 36415; 80048; 80053; 80076; 83690; 93005; 96361; 96365; 96366; 96375; 99217; 99220; 99233; 99285; J1650; U0003; 74176; 80320; 81003; 81015; 83036; 83735; 84484; 85025; 85610; 85730; 93010; 99226; G0378; J2060

== ENCOUNTER 2020-05-03 14:39 | Emergency (ER) | payer MEDICARE, BC, SELFPAY ==
[2020-05-03] VITALS (10 sets, daily range): BP systolic 132–146; BP diastolic 80–89; PULSE 69–92; RESP 12–20; TEMP 36.3; O2SAT 93–99
--- NOTE | 2020-05-03 15:00 | DI.RAD_ITS ---
EXAM: XR KNEE LT 3V AP,LAT,JONATHAN CLINICAL HISTORY: Fall. TECHNIQUE: 2D digital imaging was performed. COMPARISON: CR RIGHT KNEE LIMITED 1 OR 2 VIEW from 03/22/2011 FINDINGS: Four tubes are three views left knee reveal no evidence of fracture nor obvious joint effusion. Ther e is prepatellar swelling. No abnormal density in the intra-articular anterior Hoffa fat pad. Mild degenerative changes are noted. No osseous lesions. IMPRESSION: No fracture evident on this three view study. Prepatellar soft tissue swelling. Segment DATA REPOSITORY: RADIATION DOSE DELIVERED:
--- NOTE | 2020-05-03 15:00 | DI.CT_ITS ---
EXAM: CT HEAD CERVICAL SPINE WO COMPARISON: No exams were available for comparison FINDINGS: CT examination of the cervical spine was performed without contrast administration. There are moderate degenerative changes of the cervical spine. There is no evidence of acute cervical spine fracture or dislocation. Intervertebral disc spaces are well maintained. Tracheolaryngeal structures appear intact. No cervical mass or adenopathy. Noncontrast cranial CT was performed. Soft tissue swelling noted over the right frontal region. Moderate generalized cerebral atrophy noted. No evidence of acute intracranial hemorrhage, mass effect, or midline shift. No calvarial fracture. The orbital and temporal bone structures appear intact. Visualized mastoid air cells and paranasal sinuses appear clear. IMPRESSION: No evidence of acute cervical spine injury. No evidence of acute intracranial injury. RADIATION DOSE DELIVERED: 1,535.61mGy.cm Total DLP 1,535.61mGy.cm Total DLP DATA REPOSITORY: All CT scans at this facility are submitted to the National Radiology Data Registry (NRDR) Dose Index Registry (DIR) with the [employer] (A[employer]). RADIATION OPTIMIZATION: All CT scans at this facility use at least one of these dose optimization te chniques: automated exposure control; mA and/or kV adjustment per patient size (includes targeted exa ms where dose is matched to clinical indication); or iterative reconstruction.
--- NOTE | 2020-05-03 15:03 | W.ED.GENAD ---
Discharge Plan Disposition Patient Disposition: HOME Condition: Stable Discharge Details Clinical Impression: Head injury, Contusion of knee, left Primary Care Provider: Jovani Wharton ED Provider: Dionne Keane Home Meds and New Rx's Prescriptions: No Action thiamine HCl (vitamin B1) 100 mg tablet 100 mg PO DAILY RF: 0 amlodipine 10 mg tablet 10 mg PO DAILY Qty: 90 RF: 3 magnesium oxide 400 mg magnesium capsule 400 mg PO DAILY Qty: 90 RF: 1 ondansetron 8 mg tablet,disintegrating 8 mg PO Q8H PRN (Reason: nausea and vomiting) Qty: 10 RF: 0 allopurinol 100 mg tablet 100 mg PO DAILY Qty: 90 RF: 3 lansoprazole [Prevacid] 30 mg capsule,delayed release(DR/EC) 30 mg PO DAILY Qty: 90 RF: 3 metoprolol succinate 100 mg tablet extended release 24 hr 100 mg PO DAILY Qty: 90 RF: 3 lisinopril 5 mg tablet 5 mg PO DAILY Qty: 90 RF: 3 Discharge Instructions Instructions: Head Injury (ED), Contusion in Adults (ED) Additional Instructions: keep diet light as you may experience nausea over the next 1-2 days. can use ibuprofen and or acetaminophen as directed for pain over the next 3-5 days, please take with food. can use ice to affected areas, 20 minutes 4-5 times daily for the next 1-2 days, then use heat or ice use alpesh wrap to knee for compression and comfort for the next 3-5 days. Referrals: Jovani Wharton, DO [Primary Care Provider] - (5-7 days if not improving sooner for new or worsening symptoms) Discharge Data Discharge Date/Time-TO BE ENTERED AT DEPARTURE: 05/03/20 16:50 Medical Decision Making <Fidelina Joe - Last Filed: 05/05/20 08:41> 65-year-old male presents to the ED after a slip and fall into a cow pen prior to arrival. Patient states that he fell approximately 5 feet hitting his head on some type. No loss of consciousness. He does have a hematoma with some superficial abrasions noted to his right anterior scalp, has an abrasion noted to his right cheek, he also is complaining of some cervical spine tenderness, and left knee pain. He did not take any medications prior to arrival. He denies any chest or abdominal pain no pelvic pain. He has a past medical history of hyperlipidemia, hypertension, renal insufficiency, GERD, hypokalemia. He is not on any blood thinners. He denies any blurry vision. At this time CT head and C-spine ordered, knee x-ray ordered. Patient given 500 mg Tylenol p.o. Patient was given an ice pack for his forehead. Care is to be handed off to oncoming provider Dionne Keane [employer]PER[employer] pending CT and x-ray results. Discussed case and details with Dionne who verbalizes understanding. <Dionne Keane NP - Last Filed: 05/03/20 16:58> care of patient received. CT head and cspine negative. xray knee with no acute findings. alpesh wrap, NSAIDS, prn f/u Medical Records Medical records reviewed: Yes I reviewed the patient's medical records. Medical records narrative: Exam(s) a CT:CT head & cervical spine wo EXAM: CT HEAD CERVICAL SPINE WO COMPARISON: No exams were available for comparison FINDINGS: CT examination of the cervical spine was performed without contrast administration. There are moderate degenerative changes of the cervical spine. There is no evidence of acute cervical spine fracture or dislocation. Intervertebral disc spaces are well maintained. Tracheolaryngeal structures appear intact. No cervical mass or adenopathy. Noncontrast cranial CT was performed. Soft tissue swelling noted over the right frontal region. Moderate generalized cerebral atrophy noted. No evidence of acute intracranial hemorrhage, mass effect, or midline shift. No calvarial fracture. The orbital and temporal bone structures appear intact. Visualized mastoid air cells and paranasal sinuses appear clear. IMPRESSION: No evidence of acute cervical spine injury. No evidence of acute intracranial injury. RADIATION DOSE DELIVERED: 1,535.61mGy.cm Total DLP 1,535.61mGy.cm Total DLP DATA REPOSITORY: All CT scans at this facility are submitted to the National Radiology Data Registry (NRDR) Dose Index Registry (DIR) with the [employer] (ACR). RADIATION OPTIMIZATION: All CT scans at this facility use at least one of these dose optimization techniques: automated exposure control; mA and/or kV adjustment per patient size (includes targeted exams where dose is matched to clinical indication); or iterative reconstruction. [id number]: Total DLP = 0.00 mGy-cm Ordered By: Fidelina Joe PROCEDURE INFORMATION: Exam: XR Left Knee Exam date and time: 05/03/2020 3:03 PM Age: 65 years old Clinical indication: Other: Fall TECHNIQUE: Imaging protocol: XR Left knee. Views: 3 views. COMPARISON: No relevant prior studies available. FINDINGS: Bones/joints: Mild patellofemoral joint space narrowing and osteophyte formation consistent with degenerative changes. There is no evidence of acute fracture.There is no evidence of malalignment or dislocation. Mild suprapatellar joint effusion Soft tissues: Normal. IMPRESSION: 1. Mild patellofemoral joint space narrowing and osteophyte formation consistent with degenerative changes. 2. There is no evidence of acute fracture.There is no evidence of malalignment or dislocation. Dictated and Authenticated by: Seferino Owens MD. Ordering:BARRY Kitchen MD HPI <Fidelina Joe - Last Filed: 05/05/20 08:41> General Mode of arrival: ambulatory. Date/Time Provider Initiated Documentation: 05/03/20 14:40. Limitations to Documentation: no limitations. Information obtained by: patient. HPI Narrative: 65-year-old male presents to the ED after a slip and fall into a cow pen prior to arrival. Patient states that he fell approximately 5 feet hitting his head on some type. No loss of consciousness. He does have a hematoma with some superficial abrasions noted to his right anterior scalp, has an abrasion noted to his right cheek, he also is complaining of some cervical spine tenderness, and left knee pain. He did not take any medications prior to arrival. He denies any chest or abdominal pain no pelvic pain. He has a past medical history of hyperlipidemia, hypertension, renal insufficiency, GERD, hypokalemia. He is not on any blood thinners. He denies any blurry vision. Related Data Home Medications Medication Instructions Recorded Confirmed allopurinol 100 mg tablet 100 mg PO DAILY #90 tab-cap 05/08/19 05/03/20 thiamine HCl (vitamin B1) 100 mg 100 mg PO DAILY 05/15/19 05/03/20 tablet lansoprazole 30 mg capsule,delayed 30 mg PO DAILY #90 tab-cap 05/22/19 05/03/20 release metoprolol succinate 100 mg 100 mg PO DAILY #90 tab 10/06/19 05/03/20 tablet,extended release 24 hr lisinopril 5 mg tablet 5 mg PO DAILY #90 tab 12/08/19 05/03/20 ondansetron 8 mg disintegrating 8 mg PO Q8H PRN #10 tab 04/11/20 04/15/20 tablet amlodipine 10 mg tablet 10 mg PO DAILY #90 tab 04/15/20 05/03/20 magnesium oxide 400 mg PO DAILY #90 cap 04/15/20 04/15/20 Previous Rx's Medication Instructions Recorded allopurinol 100 mg tablet 100 mg PO DAILY #90 tab-cap 05/08/19 lansoprazole 30 mg capsule,delayed 30 mg PO DAILY #90 tab-cap 05/22/19 release metoprolol succinate 100 mg 100 mg PO DAILY #90 tab 10/06/19 tablet,extended release 24 hr lisinopril 5 mg tablet 5 mg PO DAILY #90 tab 12/08/19 ondansetron 8 mg disintegrating 8 mg PO Q8H PRN #10 tab 04/11/20 tablet amlodipine 10 mg tablet 10 mg PO DAILY #90 tab 04/15/20 magnesium oxide 400 mg PO DAILY #90 cap 04/15/20 Allergies Allergy/AdvReac Type Severity Reaction Status Date / Time morphine Allergy Intermediate HIVES/RASH Verified 05/03/20 14:52 General Stated Complaint: Trauma VICTORIA: 3 Review of Systems <Fidelina Joe - Last Filed: 05/05/20 08:41> Narrative: Constitutional: Negative for weight loss, alert and oriented, well groomed, normal body habitus, appears comfortable. HEENT: Denies blurry vision, nasal discharge, sore throat, trouble swallowing. Positive head injury has a hematoma and small abrasions noted to the right frontal scalp. Chest: Denies chest pain, palpitations, irregular rhythm, hypertension. Respiratory: Denies Shortness of breath, cough, hemoptysis. GI: Denies abdominal pain, nausea, vomiting, diarrhea, constipation. : Denies dysuria, hematuria, flank pain, rectal bleeding. Neuro: Denies dizziness, blurry vision, weakness, syncope, headache or facial numbness. Hematologic: Denies easy bruising, intolerance to heat or cold, hair loss. PFSH <Fidelina Joe - Last Filed: 05/05/20 08:41> Medical History Alcohol abuse Anemia in chronic kidney disease (CKD) Gout History of basal cell cancer (~06/2019) Left ear Hyperlipidemia Hypertension Lumbar spondylosis Reflux esophagitis (09/24/95) GERD in excess of 20 years. on PPI that entire time ?esophageal stricture Renal insufficiency (10/17/16) Surgical History H/O partial resection of colon s/p ostomy reversal Replacement of total knee joint 2013-RIGHT STRESS TEST (~01/2003) Family History Mother Breast cancer Father Heart disease Hyperlipidemia Sister Alcohol abuse Depression Sister Alcohol abuse Sister No problems noted. Brother Hyperlipidemia Brother No problems noted. Brother No problems noted. Brother No problems noted. Brother No problems noted. Maternal Grandfather No problems noted. Paternal Grandfather Alcohol abuse Hyperlipidemia Maternal Grandmother Alcohol abuse Paternal Grandmother Hyperlipidemia Stroke Son Testicular cancer Son No problems noted. Son No problems noted. Son No problems noted. Social History Smoking/Tobacco Use Status: Former Tobacco Use Smoking risk assessment performed?: Yes Alcohol Intake: former Counseling given: Yes Drug use: Never Substance use type: former substance user and marijuana Details: 05/03/20- pt states sober x 3 weeks, in recovery Household members: spouse current occupation: [employer] Pets and animals: Yes Pets and animals: dog(s) Duration: > 90 minutes/day Frequency: daily Hoa/Gnosticist: Denominational Special hoa needs: No Do you feel safe at home: Yes Do you feel safe in your relationship?: Yes Exam <Fidelina Joe - Last Filed: 05/05/20 08:41> Narrative Exam Narrative: Constitutional: Alert and oriented x3. Appears stated age. Normal body habitus. Head: Normocephalic, has a hematoma and superficial abrasions noted to the right frontal scalp. There is an abrasion noted to the right cheek. Eyes: Pupils PERRLA, Red reflex noted, EOM's intact. Eyelids symmetrical without lesions, discharge, or swelling. ENT: Bilateral TM's WNL, no hemotympanum external ear normal to inspection, no mastoid TTP, swelling, or erythema, Nasal turbinates WNL, no septal hematoma, no nasal discharge. Normal dentition, Posterior pharynx WNL, no exudate. Chest: RRR, Normal S1, S2, distal pulses intact. Resp: Lungs clear to auscultation bilaterally, no wheezes, rales, or rhonchi. Musculoskeletal: Normal gait, 5/5 strength to all four extremities. Left knee superficial abrasion noted no bleeding. No obvious deformity. Skin: Abrasion to the right frontal scalp, small abrasion noted to left knee. Capillary refill less than 2 sec. Neurologic: Cranial nerves II-XII intact. Alert and oriented x 3. DTR's intact. Hematologic/Lymphatic: No ecchymosis, no lymphadenopathy. Course <Fidelina Joe - Last Filed: 05/05/20 08:41> Vital Signs Vital signs: Vital Signs Temperature 36.3 C L 05/03/20 14:48 Pulse 74 05/03/20 14:48 Respiratory Rate 16 05/03/20 14:48 Blood Pressure 132/80 05/03/20 14:48 Pulse Oximetry 99 05/03/20 14:48 Temperature 36.3 C L 05/03/20 14:48 Temperature Source Skin 05/03/20 14:48 Pulse 74 05/03/20 14:48 Respiratory Rate 16 05/03/20 14:48 Respiratory Effort 05/03/20 14:51 Blood Pressure 132/80 05/03/20 14:48 Blood Pressure Position Supine 05/03/20 14:48 Pulse Oximetry 99 05/03/20 14:48 Oxygen Delivery Method Room Air 05/03/20 14:48 Oxygen Flow Rate 0 05/03/20 14:48 Pain Level 7 05/03/20 14:48 Sign Out <Fidelina Joe - Last Filed: 05/05/20 08:41> Sign Out Data: Sign Out Comment: Pending CT head and neck, and Knee XR Last updated by Fidelina Joe at 05/03/20 16:02
[2020-05-03] MEDS: Acetaminophen 500 MG TAB PO (15:15)
--- NOTE | 2020-05-03 16:23 | DI.VRAD_ITS ---
PROCEDURE INFORMATION: Exam: XR Left Knee Exam date and time: 05/03/2020 3:03 PM Age: 65 years old Clinical indication: Other: Fall TECHNIQUE: Imaging protocol: XR Left knee. Views: 3 views. COMPARISON: No relevant prior studies available. FINDINGS: Bones/joints: Mild patellofemoral joint space narrowing and osteophyte formation consistent with degenerative changes. There is no evidence of acute fracture.There is no evidence of malalignment or dislocation. Mild suprapatellar joint effusion Soft tissues: Normal. IMPRESSION: 1. Mild patellofemoral joint space narrowing and osteophyte formation consistent with degenerative changes. 2. There is no evidence of acute fracture.There is no evidence of malalignment or dislocation. Dictated and Authenticated by: Seferino Owens MD. Ordering:BARRY Kitchen MD
== END 2020-05-03 16:50 | disposition home or self-care (01) ==
PROVIDERS: Emergency Provider Nurse Practitioner Acute Care; PCP Emergency Medicine
DX: S00.81XA Abrasion of other part of head, initial encounter (principal); S80.02XA Contusion of left knee, initial encounter; M54.2 Cervicalgia; W17.89XA Other fall from one level to another, initial encounter; I12.9 Hypertensive chronic kidney disease with stage 1 through stage 4 chronic kidney disease, or unspecified chronic kidney disease; N18.9 Chronic kidney disease, unspecified
CPT/HCPCS: 73562; 99284; 70450; 72125

== ENCOUNTER 2020-05-24 03:14 | Outpatient (CLI) | payer MEDICARE, BC, SELFPAY ==
[2020-05-24 07:54] LABS: HCT 32.6 % (40.0-50.0); HGB 11.1 g/dL (13.5-17.5); MCH 31.9 pg (27.0-33.0); MCV 93.7 fL (80-95); MPV 11.2 fL (8.0-11.0); Platelet Count 190 10^3/uL (130-400); RBC 3.48 10^6/uL (4.36-5.78); RDW 11.9 % (11.8-14.1); RDW-SD 41.1 fL; WBC 7.27 10^3/uL (4.4-10.8)
[2020-05-24 08:06] LABS: Bilirubin Negative (Negative); Blood Negative (Negative); Clarity Clear (Clear); Glucose Negative (Negative); Ketones Negative (Negative); Leukocyte Esterase Negative (Negative); Nitrite Negative (Negative); Urobilinogen 0.2 EU/dL (Up TO 0.2); pH 5.5 (5-8)
[2020-05-24 08:44] LABS: Bacteria Rare HPF (Negative); C & S Indicated? No; Casts 3-5 Hyaline LPF (Negative); Crystals Negative HPF (Negative); Epithelial Cells Rare HPF (Negative); Mucus Trace (Negative); RBC Negative HPF (0-2); WBC 0-2 HPF (0-5)
[2020-05-24 08:59] LABS: Anion Gap 11.3 mmol/L (3-11); BUN 59 mg/dL (7-18); CO2 21.7 mmol/L (21.0-32.0); CREATININE 2.86 mg/dL (0.70-1.30); Calcium 9.7 mg/dL (8.5-10.1); Calculated LDL 156 mg/dL (<100); Chloride 106 mmol/L (98-107); Cholesterol 237 mg/dL (<200); Estimated GFR 22.23 (mL/min/1.73m2); Glucose 99 mg/dL (74-106); HDL Cholesterol 45 mg/dL (40-60); Potassium 4.4 mmol/L (3.5-5.1); Sodium 139 mmol/L (136-145); Triglyceride 184 mg/dL (<150)
[2020-05-24 09:07] LABS: Lipase 752 U/L (73-393)
== END 2020-05-24 03:34 ==
PROVIDERS: PCP Emergency Medicine; Visit Provider Emergency Medicine
DX: I10 Essential (primary) hypertension (principal); E78.5 Hyperlipidemia, unspecified; K85.20 Alcohol induced acute pancreatitis without necrosis or infection; R74.01 Elevation of levels of liver transaminase levels; R30.0 Dysuria
CPT/HCPCS: 36415; 80048; 80061; 83690; 85027; 81003; 81015

== ENCOUNTER 2020-06-02 00:52 | Outpatient (CLI) | payer MEDICARE, BC, SELFPAY ==
--- NOTE | 2020-06-02 08:15 | DI.CT_ITS ---
EXAM: CT ABDOMEN PELVIS WO CLINICAL HISTORY: pancreatitis,K85.90. TECHNIQUE: Imaging Protocol: Axial computed tomography images with coronal and sagittal reformatted images were created and reviewed CONTRAST MATERIAL: Intravenous: none Oral: Yes COMPARISON: CT CT ABDOMEN PELVIS WO from 04/11/2020 FINDINGS: VISUALIZED LUNG BASES: No nodules nor pleural effusions evident. Large hiatal hernia again evident. ABDOMEN: There is no ascites. LIVER: There are no obvious focal hepatic lesions evident of this noninfused study. No obvious dilat ation of intrahepatic ducts. GALLBLADDER/BILIARY: Small calcified gallstone again noted. CBD is not dilated. PANCREAS: No evidence of obvious pancreatic mass nor dilatation of the pancreatic duct. No peripancr eatic fluid collections. No peripancreatic streaking. SPLEEN: Spleen size is upper normal. Obvious intrasplenic lesions evident on this noninfused study. ADRENALS: There are no significant adrenal masses. KIDNEYS:No cysts evident. No solid renal masses. No calculi nor hydronephrosis. . ABDOMINAL AORTA: Abdominal aorta is not enlarged and there is no lbkhfjfhqjsxcey-yzxj-liakzb adenopat hy. ABDOMINAL WALL/GI: No evidence of significant anterior abdominal wall hernia. No bowel obstruction. PELVIS: LYMPH NODES: There is no intrapelvic nor inguinal adenopathy. GI: No evidence of appendicitis.No evidence of sigmoid diverticulitis. URINARY BLADDER: No calculi nor obvious masses evident REPRODUCTIVE: Prostate gland is not enlarged. Seminal vesicles appear unremarkable. OSSEOUS: Healed right-sided rib fractures are noted. Multilevel chronic degenerative disc disease in the lower lumbar spine. IMPRESSION: 1. Compared to the prior CT scan of 04/11/2020 there is again noted a small calcified gallstone which is unchanged in size and position. No evidence of acute cholecystitis and no dilatation of the bili wale tree. 2. The amount of hepatic steatosis appears less than previous. 3. Hiatal hernia is again noted. The stomach appears somewhat rotated. Unremarkable appearing pancreas. Healed right-sided rib fractures noted. No osseous lesions. RADIATION DOSE DELIVERED: 727.46mGy.cm Total DLP DATA REPOSITORY: All CT scans at this facility are submitted to the National Radiology Data Registry (NRDR) Dose Index Registry (DIR) with the [employer] (A[employer]). RADIATION OPTIMIZATION: All CT scans at this facility use at least one of these dose optimization te chniques: automated exposure control; mA and/or kV adjustment per patient size (includes targeted exa ms where dose is matched to clinical indication); or iterative reconstruction.
[2020-06-02 09:53] LABS: HCT 31.7 % (40.0-50.0); HGB 10.9 g/dL (13.5-17.5); MCH 31.8 pg (27.0-33.0); MCHC 34.4 % (32.0-36.0); MCV 92.4 fL (80-95); MPV 10.8 fL (8.0-11.0); Platelet Count 184 10^3/uL (130-400); RBC 3.43 10^6/uL (4.36-5.78); RDW 11.9 % (11.8-14.1); RDW-SD 40.3 fL; WBC 6.95 10^3/uL (4.4-10.8)
[2020-06-02 10:14] LABS: ALT 27 U/L (16-63); AST 15 U/L (15-37); Albumin 3.9 g/dL (3.4-5.0); Alkaline Phosphatase 79 U/L (46-116); Amylase 220 U/L (25-115); Anion Gap 11.3 mmol/L (3-11); BUN 55 mg/dL (7-18); Bilirubin, Direct 0.05 mg/dL (0.00-0.20); Bilirubin, Total 0.3 mg/dL (0.2-1.0); CO2 20.7 mmol/L (21.0-32.0); CREATININE 3.05 mg/dL (0.70-1.30); Chloride 105 mmol/L (98-107); Estimated GFR 20.64 (mL/min/1.73m2); Glucose 102 mg/dL (74-106); Lipase 526 U/L (73-393); Potassium 4.5 mmol/L (3.5-5.1); Sodium 137 mmol/L (136-145); Total Protein 7.7 g/dL (6.4-8.2)
[2020-06-02] MEDS: Omnipaque 350 MG/ML 50 ML BTL IJ (11:00)
== END 2020-06-02 01:12 ==
PROVIDERS: PCP Emergency Medicine; Visit Provider Emergency Medicine
DX: K80.80 Other cholelithiasis without obstruction (principal); K76.0 Fatty (change of) liver, not elsewhere classified; K44.9 Diaphragmatic hernia without obstruction or gangrene; K85.90 Acute pancreatitis without necrosis or infection, unspecified; I10 Essential (primary) hypertension; E78.5 Hyperlipidemia, unspecified
CPT/HCPCS: 80048; 80076; 83690; 85027; 74176; 82150; Q9967

== ENCOUNTER 2020-06-13 00:59 | Outpatient (CLI) | payer MEDICARE, BC, SELFPAY ==
--- NOTE | 2020-06-13 07:00 | DI.NM_ITS ---
EXAM: NM HEPATOBILIARY SCAN GRP CLINICAL HISTORY: Abdominal pain and known gallstone. TECHNIQUE: Injected dose: 5 mCi Tc-99 mebrofenin Initial dynamic images: 60 minutes COMPARISON: CT CT ABDOMEN PELVIS WO from 06/02/2020 FINDINGS: Normal hepatic transit time. Prompt excretion into the small bowel. Prompt excretion into the gallbladder. IMPRESSION: 1. No evidence of acute cholecystitis. SNM guidelines: Gallbladder visualization should be present by 3 hours. Delayed clkuvtu-mp-uvllw huynh sit beyond 60 min raises the suspicion for partial common bile duct (CBD) obstruction.
== END 2020-06-13 01:19 ==
PROVIDERS: PCP Emergency Medicine; Visit Provider Emergency Medicine
DX: K80.20 Calculus of gallbladder without cholecystitis without obstruction (principal); R10.9 Unspecified abdominal pain
CPT/HCPCS: 78227

== ENCOUNTER 2020-07-22 11:40 | Outpatient (REF) | payer MEDICARE, BC, SELFPAY ==
[2020-07-22 12:25] LABS: Abs Immature Grans 0.02 10^3/uL (0.0-0.06); Absolute Basophil Count 0.07 10^3/uL (0.0-0.2); Absolute Eosinophil Count 1.42 10^3/uL (0.0-0.7); Absolute Lymphocyte Count 1.06 10^3/uL (1.2-3.4); Absolute Monocyte Count 0.72 10^3/uL (0.1-0.8); Absolute Neutrophil Count 4.35 10^3/uL (1.2-6.7); Basophils % 0.9; Eosinophils % 18.6; HCT 29.5 % (40.0-50.0); HGB 9.7 g/dL (13.5-17.5); Immature Grans % 0.3; Lymphocytes % 13.9; MCH 30.7 pg (27.0-33.0); MCHC 32.9 % (32.0-36.0); MCV 93.4 fL (80-95); Monocytes % 9.4; Neutrophils % 56.9; Nucleated RBC 0 %; Platelet Count 215 10^3/uL (130-400); RBC 3.16 10^6/uL (4.36-5.78); RDW 12.9 % (11.8-14.1); RDW-SD 44.5 fL; WBC 7.64 10^3/uL (4.4-10.8)
[2020-07-22 12:44] LABS: ALT 19 U/L (16-63); AST 14 U/L (15-37); Albumin 3.7 g/dL (3.4-5.0); Alkaline Phosphatase 91 U/L (46-116); Amylase 280 U/L (25-115); Anion Gap 12.6 mmol/L (3-11); BUN 53 mg/dL (7-18); Bilirubin, Total 0.3 mg/dL (0.2-1.0); CO2 19.4 mmol/L (21.0-32.0); CREATININE 3.3 mg/dL (0.70-1.30); Calcium 8.8 mg/dL (8.5-10.1); Chloride 105 mmol/L (98-107); Estimated GFR 18.85 (mL/min/1.73m2); Glucose 103 mg/dL (74-106); Lipase 926 U/L (73-393); Potassium 4.9 mmol/L (3.5-5.1); Sodium 137 mmol/L (136-145)
== END 2020-07-22 11:41 | disposition home or self-care (01) ==
LOC: LBN 11:40
PROVIDERS: PCP Emergency Medicine; Visit Provider Emergency Medicine
DX: E78.5 Hyperlipidemia, unspecified (principal); K85.90 Acute pancreatitis without necrosis or infection, unspecified
CPT/HCPCS: 80053; 83690; 82150; 85025

== ENCOUNTER 2020-08-09 13:17 | Outpatient (REF) | payer MEDICARE, BC, SELFPAY ==
[2020-08-09 14:08] LABS: Amylase 231 U/L (25-115); Anion Gap 11.2 mmol/L (3-11); BUN 53 mg/dL (7-18); CO2 22.8 mmol/L (21.0-32.0); CREATININE 3.1 mg/dL (0.70-1.30); Calcium 9.2 mg/dL (8.5-10.1); Chloride 105 mmol/L (98-107); Estimated GFR 20.26 (mL/min/1.73m2); Glucose 89 mg/dL (74-106); Lipase 683 U/L (73-393); Potassium 5.3 mmol/L (3.5-5.1); Sodium 139 mmol/L (136-145)
[2020-08-09 14:34] LABS: HCT 30.1 % (40.0-50.0); HGB 9.9 g/dL (13.5-17.5); MCH 31.1 pg (27.0-33.0); MCHC 32.9 % (32.0-36.0); MCV 94.7 fL (80-95); Platelet Count 191 10^3/uL (130-400); RBC 3.18 10^6/uL (4.36-5.78); WBC 6.55 10^3/uL (4.4-10.8)
[2020-08-09 22:46] LABS: PSA, Screening 0.9 ng/mL (0.0-4.5)
== END 2020-08-09 13:18 | disposition home or self-care (01) ==
LOC: LBN 13:17
PROVIDERS: PCP Emergency Medicine; Visit Provider Emergency Medicine
DX: E78.5 Hyperlipidemia, unspecified (principal); I10 Essential (primary) hypertension; N28.9 Disorder of kidney and ureter, unspecified; D63.1 Anemia in chronic kidney disease; K85.90 Acute pancreatitis without necrosis or infection, unspecified; K80.20 Calculus of gallbladder without cholecystitis without obstruction; Z12.5 Encounter for screening for malignant neoplasm of prostate
CPT/HCPCS: 80048; 83690; 84153; 85027; 82150

== ENCOUNTER 2020-11-02 20:19 | Outpatient (REF) | payer MEDICARE, BC, SELFPAY ==
[2020-11-02 18:21] LABS: Abs Immature Grans 0.02 10^3/uL (0.0-0.06); Absolute Basophil Count 0.06 10^3/uL (0.0-0.2); Absolute Eosinophil Count 0.43 10^3/uL (0.0-0.7); Absolute Lymphocyte Count 0.84 10^3/uL (1.2-3.4); Absolute Neutrophil Count 3.39 10^3/uL (1.2-6.7); Basophils % 1.1; Eosinophils % 8.1; HCT 32.6 % (40.0-50.0); HGB 10.6 g/dL (13.5-17.5); Immature Grans % 0.4; Lymphocytes % 15.7; MCH 30.5 pg (27.0-33.0); MCHC 32.5 % (32.0-36.0); MCV 93.9 fL (80-95); Monocytes % 11.2; Neutrophils % 63.5; Nucleated RBC 0 %; Platelet Count 197 10^3/uL (130-400); RBC 3.47 10^6/uL (4.36-5.78); RDW-SD 48.5 fL; WBC 5.34 10^3/uL (4.4-10.8)
[2020-11-02 18:23] LABS: ALT 27 U/L (16-63); AST 17 U/L (15-37); Albumin 3.9 g/dL (3.4-5.0); Alkaline Phosphatase 79 U/L (46-116); Anion Gap 13.6 mmol/L (3-11); BUN 57 mg/dL (7-18); Bilirubin, Total 0.3 mg/dL (0.2-1.0); CO2 19.4 mmol/L (21.0-32.0); CREATININE 3.4 mg/dL (0.70-1.30); Calcium 8.6 mg/dL (8.5-10.1); Chloride 109 mmol/L (98-107); Estimated GFR 18.21 (mL/min/1.73m2); Glucose 121 mg/dL (74-106); Lipase 861 U/L (73-393); Potassium 4.4 mmol/L (3.5-5.1); Sodium 142 mmol/L (136-145)
== END 2020-11-02 20:20 | disposition home or self-care (01) ==
LOC: LBN 20:19
PROVIDERS: PCP Emergency Medicine; Visit Provider Emergency Medicine
DX: K85.90 Acute pancreatitis without necrosis or infection, unspecified (principal); N28.9 Disorder of kidney and ureter, unspecified; N18.9 Chronic kidney disease, unspecified; D63.1 Anemia in chronic kidney disease
CPT/HCPCS: 80053; 83690; 85025

== ENCOUNTER 2021-01-02 07:34 | Emergency (ER) | payer MEDICARE, BC, SELFPAY ==
[2021-01-02 07:38] VITALS: BP 130/89; PULSE 77; RESP 16; TEMP 36.8; O2SAT 98
--- NOTE | 2021-01-02 08:28 | ED.GENADUL_ITS ---
Discharge Plan Disposition Patient Disposition: HOME Condition: Stable Discharge Details Clinical Impression: Alcohol withdrawal Primary Care Provider: Jovani Wharton ED Provider: Cristine Stuart Home Meds and New Rx's Prescriptions: New diazepam [Valium] 5 mg tablet 5 mg PO TID Qty: 9 RF: 0 Continued allopurinol 100 mg tablet 100 mg PO DAILY Qty: 90 RF: 3 amlodipine 10 mg tablet 10 mg PO DAILY Qty: 90 RF: 3 vitamin B complex [B Complex-Vitamin B12] Tablet 1 tab PO DAILY RF: 0 Creon 6,000-19,000 -30,000 unit capsule,delayed release(DR/EC) 6.615 cap PO TID Qty: 180 RF: 2 omeprazole 20 mg capsule,delayed release(DR/EC) 20 mg PO BID RF: 0 lansoprazole [Prevacid] 30 mg capsule,delayed release(DR/EC) 30 mg PO DAILY Qty: 90 RF: 3 metoprolol succinate 100 mg tablet extended release 24 hr 100 mg PO DAILY Qty: 90 RF: 3 lisinopril 5 mg tablet 5 mg PO DAILY Qty: 90 RF: 3 Discharge Instructions Instructions: Diazepam (By mouth), Alcohol Withdrawal (ED) Additional Instructions: Please return immediately to the emergency department if you develop any new or worsening symptoms, if your condition does not improve as expected, or if you become otherwise concerned. It is extremely important that you call soon as possible to make an appointment to be seen in follow-up for this visit by your primary care doctor. Please do not take valium within 6 hours of drinking alcohol. If you begin drinking alcohol again, please stop taking Valium completely, as drinking alcohol and taking Valium can cause significantly slowed breathing, permanent disability, or . Please drink plenty of fluids at home and eat full meals. Please return immediately to the emergency department if you are having any trouble drinking fluids or eating meals. Referrals: Jovani Wharton, [Primary Care Provider] - Discharge Data Discharge Date/Time-TO BE ENTERED AT DEPARTURE: 01/02/21 13:31 Medical Decision Making Mathew Mendez is a 65-year-old man with a history of alcohol use disorder, GERD, chronic kidney disease, hypertension, hyperlipidemia who presented to emergency department with nausea, generalized weakness, and mild anxiety that he attributed to reduction/cessation in alcohol usage. On exam patient is very well and nontoxic-appearing. He is calm and pleasant. There is no tremor or agitation. Concern for dehydration, possible electrolyte derangement given recent heavy alcohol use, mild alcohol withdrawal, other. Exam/history at this time is not consistent with sepsis, moderate/severe alcohol withdrawal, acute coronary syndrome, acute emergent intra-abdominal process. Plan for IV placement, IV fluid hydration, screening labs, urinalysis, p.o. Valium, telemetry. Will monitor and reassess. Patient has stated multiple times that he does not want to be admitted and is here for help with alcohol withdrawal at home. Given mild symptoms and normal vital signs, anticipate discharge to home. Patient's PCP, Dr. Wharton, is on vacation, I did discuss patient with Dr. Espinoza. I relayed my anticipation of patient discharged home on p.o. Valium. She will follow up with patient this week. Labs reviewed. Anion gap is elevated, likely combination of dehydration and mild alcoholic ketoacidosis. Creatinine 3.4, at baseline. Plan for continued hydration, will repeat BMP. BMP shows improvement in anion gap. Glucose 66. Patient drinking orange juice and eating lunch. Patient reports patient reports feeling significantly improved after eating lunch. States that he has no symptoms. CIWA score 0. Patient reports that he continues to feel comfortable going home and continues to request treatment as an outpatient. Patient with mildly elevated anion gap on repeat chemistry, however given that he is taking p.o. without issue, states that he feels much better after eating, currently asymptomatic, is reliable to return to the emergency department should symptoms worsen, patient requesting discharge and feels comfortable caring for himself at home, discharge is appropriate at this time. Patient spoke with acid recovery operator while in the emergency department. I discussed patient with care management who will assist with follow-up. I had a lengthy discussion with patient regarding use of Valium as an outpatient, dangers of misuse or combining Valium with alcohol including permanent disability, . Patient verbalizes understanding the risk. I had a lengthy discussion with Patient regarding return to emergency department precautions, home care, and importance of outpatient follow-up. Pt verbalizes understanding of the plan and is amenable. Patient discharged to home with clear plan for outpatient follow-up. All questions were answered. Disposition decision was made weighing the risks and benefits of hospitalization versus outpatient treatment, the risk for further decompensation, and the patient's wishes. Medical Records Medical records reviewed: Yes I reviewed the patient's medical records. Lab Data Lab results reviewed: Yes I reviewed the patient's lab results. Labs: Laboratory Tests Range/Units 01/02/21 01/02/2121 08:33 08:33 09:30 WBC (4.4-10.8) 10^3/uL 5.52 RBC (4.36-5.78) 10^6/uL 3.95 L Hgb (13.5-17.5) g/dL 12.4 L Hct (40.0-50.0) % 37.4 L MCV (80-95) fL 94.7 MCH (27.0-33.0) pg 31.4 MCHC (32.0-36.0) % 33.2 RDW (11.8-14.1) % 14.3 H Plt Count (130-400) 10^3/uL 192 MPV (8.0-11.0) fL 10.5 Immature Gran % 0.2 Neutrophils % 71.3 Lymphocytes % 12.5 Monocytes % 11.1 Eosinophils % 3.6 Basophils % 1.3 Nucleated RBC % % 0 Absolute Neutrophils (1.2-6.7) 10^3/uL 3.94 Absolute Lymphocytes (1.2-3.4) 10^3/uL 0.69 L Absolute Monocytes (0.1-0.8) 10^3/uL 0.61 Absolute Eosinophils (0.0-0.7) 10^3/uL 0.20 Absolute Basophils (0.0-0.2) 10^3/uL 0.07 Sodium (136-145) mmol/L 138 Potassium (3.5-5.1) mmol/L 4.3 Chloride (98-107) mmol/L 102 Carbon Dioxide (21.0-32.0) mmol/L 19.9 L Anion Gap (3-11) mmol/L 16.1 H BUN (7-18) mg/dL 45 H Creatinine (0.70-1.30) mg/dL 3.4 H Estimated GFR/1.73 m2 (mL/min/1.73m2) 18.21 Glucose (74-106) mg/dL 77 Calcium (8.5-10.1) mg/dL 8.7 Magnesium (1.8-2.4) mg/dL 2.5 H Total Bilirubin (0.2-1.0) mg/dL 0.4 AST (15-37) U/L 69 H ALT (16-63) U/L 73 H Alkaline Phosphatase (46-116) U/L 100 Total Protein (6.4-8.2) g/dL 7.8 Albumin (3.4-5.0) g/dL 4.0 Urine Color (Yellow) Yellow Urine Clarity (Clear) Clear Urine pH (5-8) 6.5 Ur Specific [place] (1.005-1.025) 1.020 Urine Protein (Negative) mg/dL 100 H Urine Ketones (Negative) mg/dL Negative Urine Blood (Negative) Trace-lysed H Urine Nitrite (Negative) Negative Urine Bilirubin (Negative) Negative Urine Urobilinogen (Up TO 0.2) EU/dL 0.2 Ur Leukocyte Esterase (Negative) Negative Urine RBC (0-2) HPF 0-2 Urine WBC (0-5) HPF Negative Ur Epithelial Cells (Negative) HPF Rare Urine Crystals (Negative) HPF Negative Urine Bacteria (Negative) HPF Negative Urine Casts (Negative) LPF 0-2 Hyaline Urine Mucus (Negative) Negative Ur Culture Indicated? No Urine Glucose (Negative) mg/dL Negative Range/Units 01/02/21 11:16 WBC (4.4-10.8) 10^3/uL RBC (4.36-5.78) 10^6/uL Hgb (13.5-17.5) g/dL Hct (40.0-50.0) % MCV (80-95) fL MCH (27.0-33.0) pg MCHC (32.0-36.0) % RDW (11.8-14.1) % Plt Count (130-400) 10^3/uL MPV (8.0-11.0) fL Immature Gran % Neutrophils % Lymphocytes % Monocytes % Eosinophils % Basophils % Nucleated RBC % % Absolute Neutrophils (1.2-6.7) 10^3/uL Absolute Lymphocytes (1.2-3.4) 10^3/uL Absolute Monocytes (0.1-0.8) 10^3/uL Absolute Eosinophils (0.0-0.7) 10^3/uL Absolute Basophils (0.0-0.2) 10^3/uL Sodium (136-145) mmol/L 139 Potassium (3.5-5.1) mmol/L 4.3 Chloride (98-107) mmol/L 105 Carbon Dioxide (21.0-32.0) mmol/L 19.7 L Anion Gap (3-11) mmol/L 14.3 H BUN (7-18) mg/dL 41 H Creatinine (0.70-1.30) mg/dL 3.1 H Estimated GFR/1.73 m2 (mL/min/1.73m2) 20.26 Glucose (74-106) mg/dL 64 L Calcium (8.5-10.1) mg/dL 7.8 L Magnesium (1.8-2.4) mg/dL Total Bilirubin (0.2-1.0) mg/dL AST (15-37) U/L ALT (16-63) U/L Alkaline Phosphatase (46-116) U/L Total Protein (6.4-8.2) g/dL Albumin (3.4-5.0) g/dL Urine Color (Yellow) Urine Clarity (Clear) Urine pH (5-8) Ur Specific [place] (1.005-1.025) Urine Protein (Negative) mg/dL Urine Ketones (Negative) mg/dL Urine Blood (Negative) Urine Nitrite (Negative) Urine Bilirubin (Negative) Urine Urobilinogen (Up TO 0.2) EU/dL Ur Leukocyte Esterase (Negative) Urine RBC (0-2) HPF Urine WBC (0-5) HPF Ur Epithelial Cells (Negative) HPF Urine Crystals (Negative) HPF Urine Bacteria (Negative) HPF Urine Casts (Negative) LPF Urine Mucus (Negative) Ur Culture Indicated? Urine Glucose (Negative) mg/dL HPI General Mode of arrival: ambulatory . Date/Time Provider Initiated Documentation: 01/02/21 07:46 . Limitations to Documentation: no limitations . Information obtained by: patient, RN notes reviewed and old records reviewed . HPI Narrative: Mathew Mendez is a 65 y/o man with h/o HTN, HLD, CKD, alcohol use disorder presenting to the emergency department with chief complaint alcohol withdrawal. Patient reports that he has used alcohol heavily intermittently multiple times in the past. 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 Patient states that he began drinking heavily approximately 1 month ago, drinking 1 pint of vodka per day. Patient reports that yesterday morning he had 3 shots of vodka or so, and then awoke in the middle the night and had 1 shot of vodka at approximately 1:30 this morning. Patient reports that since starting to cut back 2 to 3 days ago, he has felt generally weak, has had poor appetite, and has had nausea. He denies any pain, vomiting, diarrhea, cough, shortness of breath, fever, numbness, weakness, swelling. Patient reports that she has never had alcohol withdrawal seizures or delirium tremens when he has stopped drinking alcohol in the past. Patient reports that he is looking for assistance detoxing from alcohol as an outpatient, because he has become shaky during alcohol withdrawal in the past and does not want to go through that again. He reports mild anxiety, denies any current tremors or shakiness. Related Data Home Medications Medication Instructions Recorded Confirmed amlodipine 10 mg tablet 10 mg PO DAILY #90 tab 04/15/20 05/30/20 lansoprazole 30 mg capsule,delayed 30 mg PO DAILY #90 tab-cap 05/10/20 05/30/20 release allopurinol 100 mg tablet 100 mg PO DAILY #90 tab-cap 05/25/20 05/30/20 ifnwej-kimzxhct-tyidaja 6.615 cap PO TID #180 cap 08/09/20 08/09/20 6,000-19,000-30,000 unit capsule,delayed rel vitamin B complex 1 tab PO DAILY 08/09/20 01/02/21 metoprolol succinate 100 mg 100 mg PO DAILY #90 tab 10/13/20 tablet,extended release 24 hr omeprazole 20 mg capsule,delayed 20 mg PO BID 11/02/20 release lisinopril 5 mg tablet 5 mg PO DAILY #90 tab 11/22/20 diazepam [Valium] 5 mg PO TID #9 tab 01/02/21 Previous Rx's Medication Instructions Recorded amlodipine 10 mg tablet 10 mg PO DAILY #90 tab 04/15/20 lansoprazole 30 mg capsule,delayed 30 mg PO DAILY #90 tab-cap 05/10/20 release allopurinol 100 mg tablet 100 mg PO DAILY #90 tab-cap 05/25/20 iufqea-orjysmao-hcprfme 6.615 cap PO TID #180 cap 08/09/20 6,000-19,000-30,000 unit capsule,delayed rel metoprolol succinate 100 mg 100 mg PO DAILY #90 tab 10/13/20 tablet,extended release 24 hr lisinopril 5 mg tablet 5 mg PO DAILY #90 tab 11/22/20 diazepam [Valium] 5 mg PO TID #9 tab 01/02/21 Allergies Allergy/AdvReac Type Severity Reaction Status Date / Time morphine Allergy Intermediate HIVES/RASH Verified 11/02/20 14:10 General Stated Complaint: ETOHWithdr VICTORIA: 3 Review of Systems Narrative: Constitutional: denies fevers Eyes: denies eye pain ENT: denies ear pain, dental pain, sore throat Cardiovascular: denies chest pain, edema Respiratory: denies SOB, cough GI: denies abdominal pain, vomiting, diarrhea, reports nausea : denies flank pain MSK: denies back pain, neck pain, arthralgias, myalgias Skin: denies rash Neuro: denies headaches, numbness, focal weakness, tremor [facility] Medical History (Updated 01/02/21 @ 13:09 by Cristine Stuart MD) Alcohol abuse Anemia in chronic kidney disease (CKD) Barretts esophagus Gallstone Gout Hiatal hernia History of basal cell cancer (~06/2019) Left ear Hyperlipidemia Hypertension Lumbar spondylosis Pancreatitis Reflux esophagitis (09/24/95) GERD in excess of 20 years. on PPI that entire time ?esophageal stricture Renal insufficiency (10/17/16) Surgical History H/O partial resection of colon s/p ostomy reversal Replacement of total knee joint 2012-RIGHT STRESS TEST (~01/2003) Family History (Updated 08/15/20 @ 10:12 by Lea Iniguez) Mother Breast cancer Father Heart disease Hyperlipidemia Sister Alcohol abuse Depression Sister Alcohol abuse Sister No problems noted. Brother Hyperlipidemia Brother No problems noted. Brother No problems noted. Brother No problems noted. Brother No problems noted. Maternal Grandfather No problems noted. Paternal Grandfather Alcohol abuse Hyperlipidemia Maternal Grandmother Alcohol abuse Paternal Grandmother Hyperlipidemia Stroke Son Testicular cancer Son No problems noted. Son No problems noted. Son No problems noted. 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 Pets and animals: Yes Pets and animals: dog(s) Duration: > 90 minutes/day Frequency: daily Hoa/Sabianism: Protestant Special hoa needs: No Do you feel safe at home: Yes Do you feel safe in your relationship?: Yes Exam Narrative Exam Narrative: Constitutional: well and qzu-myxrb-hkdxyplya, pleasant, conversing normally HENT: head atraumatic/normocephalic/normal inspection, mucous membranes moist Eyes: conjunctiva normal, sclera normal, pupils 3mm b/l Neck: no stridor, normal ROM, trachea midline Chest: normal inspection Resp: normal work of breathing, speaking in full sentences Cardio: normal rate, normal rhythm Skin: warm, dry, normal color, no rash Neuro: alert, not altered, grossly non-focal, normal tone Ext: no edema, moving all extremities equally, no tremor of the upper extremities Psych: normal mood, normal affect, normal behavior Course Vital Signs Vital signs: Vital Signs Temperature 36.8 C 01/02/21 07:38 Pulse 77 01/02/21 07:38 Respiratory Rate 16 01/02/21 07:38 Blood Pressure 130/89 01/02/21 07:38 Pulse Oximetry 98 01/02/21 07:38 Temperature 36.8 C 01/02/21 07:38 Temperature Source Skin 01/02/21 07:38 Pulse 77 01/02/21 07:38 Respiratory Rate 16 01/02/21 07:38 Respiratory Effort 01/02/21 07:45 Respiratory Pattern Normal 01/02/21 07:45 Blood Pressure 130/89 01/02/21 07:38 Blood Pressure Position Sitting 01/02/21 07:38 Pulse Oximetry 98 01/02/21 07:38 Oxygen Delivery Method Room Air 01/02/21 07:38 Oxygen Flow Rate 0 01/02/21 07:38 Pain Level 0 01/02/21 07:38
[2021-01-02] MEDS: diazePAM 5 MG TAB PO (08:40)
[2021-01-02 08:41] LABS: Abs Immature Grans 0.01 10^3/uL (0.0-0.06); Absolute Basophil Count 0.07 10^3/uL (0.0-0.2); Absolute Lymphocyte Count 0.69 10^3/uL (1.2-3.4); Absolute Monocyte Count 0.61 10^3/uL (0.1-0.8); Absolute Neutrophil Count 3.94 10^3/uL (1.2-6.7); Basophils % 1.3; Eosinophils % 3.6; HCT 37.4 % (40.0-50.0); HGB 12.4 g/dL (13.5-17.5); Immature Grans % 0.2; Lymphocytes % 12.5; MCH 31.4 pg (27.0-33.0); MCHC 33.2 % (32.0-36.0); MCV 94.7 fL (80-95); MPV 10.5 fL (8.0-11.0); Monocytes % 11.1; Neutrophils % 71.3; Nucleated RBC 0 %; Platelet Count 192 10^3/uL (130-400); RBC 3.95 10^6/uL (4.36-5.78); RDW 14.3 % (11.8-14.1); RDW-SD 50.2 fL; WBC 5.52 10^3/uL (4.4-10.8)
[2021-01-02] MEDS: Normal Saline 1,000 ML 1000 ML IV ×2 (08:41→09:54)
[2021-01-02 08:58] LABS: ALT 73 U/L (16-63); AST 69 U/L (15-37); Alkaline Phosphatase 100 U/L (46-116); Anion Gap 16.1 mmol/L (3-11); BUN 45 mg/dL (7-18); Bilirubin, Total 0.4 mg/dL (0.2-1.0); CO2 19.9 mmol/L (21.0-32.0); CREATININE 3.4 mg/dL (0.70-1.30); Calcium 8.7 mg/dL (8.5-10.1); Chloride 102 mmol/L (98-107); Estimated GFR 18.21 (mL/min/1.73m2); Glucose 77 mg/dL (74-106); Magnesium 2.5 mg/dL (1.8-2.4); Potassium 4.3 mmol/L (3.5-5.1); Sodium 138 mmol/L (136-145); Total Protein 7.8 g/dL (6.4-8.2)
[2021-01-02 09:13] VITALS: BP 122/75; PULSE 65; RESP 16; O2SAT 97
[2021-01-02 09:41] LABS: Bilirubin Negative (Negative); Blood Trace-lysed (Negative); Clarity Clear (Clear); Glucose Negative (Negative); Ketones Negative (Negative); Leukocyte Esterase Negative (Negative); Nitrite Negative (Negative); Urobilinogen 0.2 EU/dL (Up TO 0.2); pH 6.5 (5-8)
[2021-01-02 09:50] LABS: Bacteria Negative HPF (Negative); C & S Indicated? No; Casts 0-2 Hyaline LPF (Negative); Crystals Negative HPF (Negative); Epithelial Cells Rare HPF (Negative); Mucus Negative (Negative); RBC 0-2 HPF (0-2); WBC Negative HPF (0-5)
[2021-01-02 11:22] VITALS: BP 124/71; PULSE 68; RESP 16; TEMP 36.8; O2SAT 98
[2021-01-02 11:45] LABS: Anion Gap 14.3 mmol/L (3-11); BUN 41 mg/dL (7-18); CO2 19.7 mmol/L (21.0-32.0); CREATININE 3.1 mg/dL (0.70-1.30); Calcium 7.8 mg/dL (8.5-10.1); Chloride 105 mmol/L (98-107); Estimated GFR 20.26 (mL/min/1.73m2); Glucose 64 mg/dL (74-106); Potassium 4.3 mmol/L (3.5-5.1); Sodium 139 mmol/L (136-145)
[2021-01-02 13:15] VITALS: BP 129/73; PULSE 71; RESP 16; TEMP 37; O2SAT 94
== END 2021-01-02 13:31 | disposition home or self-care (01) ==
PROVIDERS: Emergency Provider Student in an Organized Health Care Education/Training Program; PCP Emergency Medicine
DX: F10.130 Alcohol abuse with withdrawal, uncomplicated (principal); R53.1 Weakness; R11.2 Nausea with vomiting, unspecified; F41.9 Anxiety disorder, unspecified; E87.2 Acidosis
CPT/HCPCS: 36415; 80048; 80053; 96360; 96361; 99284; 81003; 81015; 83735; 85025

== ENCOUNTER 2021-03-02 18:41 | Outpatient (REF) | payer MEDICARE, BC, SELFPAY ==
[2021-03-04 11:43] LABS: COVID-19 RT-PCR UVMMC Result Negative (Negative)
== END 2021-03-02 18:42 | disposition home or self-care (01) ==
LOC: LBN 18:41
PROVIDERS: PCP Emergency Medicine; Visit Provider Nurse Practitioner Family
DX: Z20.822 Contact with and (suspected) exposure to COVID-19; W57.XXXA Bitten or stung by nonvenomous insect and other nonvenomous arthropods, initial encounter; R52 Pain, unspecified
CPT/HCPCS: U0003

== ENCOUNTER 2021-04-14 09:00 | Outpatient (CLI) | payer MEDICARE, BC, SELFPAY ==
--- NOTE | 2021-04-14 08:00 | DI.US_ITS ---
Exam(s) US LOWER EXTREMITY VENOUS RT EXAM: US LOWER EXTREMITY VENOUS RT CLINICAL HISTORY: right leg edema,dvt,r60.0,i82.409. TECHNIQUE: Lower extremity venous ultrasound performed using grayscale, color-flow, and spectral Do ppler analysis. COMPARISON: No exams were available for comparison FINDINGS: The common femoral, femoral and popliteal veins demonstrate normal compressibility, augmentation, and color Doppler. The posterior tibial veins are patent. No saphenous vein thrombosis or other superfi cial venous thrombosis is seen. No hematoma or Moses's cyst is seen. IMPRESSION: Negative lower extremity ultrasound. No evidence of DVT. DATA REPOSITORY:
== END 2021-04-14 09:20 ==
PROVIDERS: PCP Emergency Medicine; Visit Provider Emergency Medicine
DX: R60.0 Localized edema (principal); M79.604 Pain in right leg
CPT/HCPCS: 93971

== ENCOUNTER 2021-04-14 10:53 | Outpatient (CLI) | payer MEDICARE, BC, SELFPAY ==
[2021-04-14 13:11] LABS: Abs Immature Grans 0.07 10^3/uL (0.0-0.06); Absolute Basophil Count 0.09 10^3/uL (0.0-0.2); Absolute Eosinophil Count 0.54 10^3/uL (0.0-0.7); Absolute Lymphocyte Count 1.17 10^3/uL (1.2-3.4); Absolute Monocyte Count 0.65 10^3/uL (0.1-0.8); Absolute Neutrophil Count 6.65 10^3/uL (1.2-6.7); Eosinophils % 5.9; HCT 33.8 % (40.0-50.0); HGB 11.1 g/dL (13.5-17.5); Immature Grans % 0.8; Lymphocytes % 12.8; MCH 31.3 pg (27.0-33.0); MCHC 32.8 % (32.0-36.0); MCV 95.2 fL (80-95); MPV 10.1 fL (8.0-11.0); Monocytes % 7.1; Neutrophils % 72.4; Nucleated RBC 0 %; Platelet Count 244 10^3/uL (130-400); RBC 3.55 10^6/uL (4.36-5.78); RDW-SD 41.9 fL; WBC 9.17 10^3/uL (4.4-10.8)
[2021-04-14 13:48] LABS: D-Dimer 2016 ng/mlFEU (<500)
[2021-04-14 14:10] LABS: C-Reactive Protein 1.07 mg/dL (0.0-0.3)
== END 2021-04-14 10:54 | disposition home or self-care (01) ==
LOC: LBO 10:53
PROVIDERS: PCP Emergency Medicine; Visit Provider Emergency Medicine
DX: I82.409 Acute embolism and thrombosis of unspecified deep veins of unspecified lower extremity; R60.0 Localized edema
CPT/HCPCS: 36415; 85025; 85379; 86140; 93971

== ENCOUNTER 2021-06-09 10:20 | Emergency (ER) | payer MEDICARE, SELFPAY ==
[2021-06-09] VITALS (40 sets, daily range): BP systolic 137–163; BP diastolic 74–92; PULSE 82–130; RESP 10–25; TEMP 36.9–37.2; O2SAT 93–100
--- NOTE | 2021-06-09 10:30 | RT.EKG_ITS ---
APPROVED REPORT Exam: Resting ECG Reason for Exam: tacycardia, CHAYITO Patient Location: E HR:98 bpm ECG Measurements Heart Rate 98 AXIS MD 159 P 53 QRSd 104 QRS -7 QT 336 T 31 QTc 430 Conclusion Sinus rhythm...normal P axis, V-rate 60- 99 Sinus. No STEMI. I have reviewed and interpreted ECG and agree with software generated interpretation.
--- NOTE | 2021-06-09 10:52 | ED.GENADUL_ITS ---
Discharge Plan Disposition Patient Disposition: HOME Condition: Improving Discharge Details Clinical Impression: Alcohol abuse, Dehydration Primary Care Provider: Jorge Chauhan ED Provider: Nola De La Vega Home Meds and New Rx's Prescriptions: Continued vitamin B complex [B Complex-Vitamin B12] Tablet 1 tab PO DAILY RF: 0 Creon 6,000-19,000 -30,000 unit capsule,delayed release(DR/EC) 1 cap PO TID Qty: 90 RF: 6 naltrexone 50 mg tablet 50 mg PO DAILY Qty: 90 RF: 3 metoprolol succinate 100 mg tablet extended release 24 hr 100 mg PO DAILY Qty: 90 RF: 3 lisinopril 5 mg tablet 5 mg PO DAILY Qty: 90 RF: 3 amlodipine 10 mg tablet 10 mg PO DAILY Qty: 90 RF: 3 allopurinol 100 mg tablet 100 mg PO DAILY Qty: 90 RF: 3 omeprazole 40 mg capsule,delayed release(DR/EC) 40 mg PO DAILY Qty: 90 RF: 3 Discharge Instructions Instructions: Dehydration (ED), Abuse of Alcohol (ED), Alcohol Use Disorder (ED) Additional Instructions: Drink plenty of fluids and get plenty of rest. Take the Ativan every 6-8 hours as needed and directed for symptoms of alcohol withdrawal including sweating, shaking, feeling of racing heart rate or feeling jittery. Do not take this medication with alcohol as this can increase the risk of respiratory depression and . Follow-up with your primary care doctor in 1 week. Return to the emergency department with any worsening or new concerning symptoms. Discharge Data Discharge Date/Time-TO BE ENTERED AT DEPARTURE: 06/09/21 14:59 Discharge Physician: Nola De La Vega Medical Decision Making 66-year-old male with a history of alcohol abuse, alcohol withdrawal, hypertension, hyperlipidemia, GERD, CKD, pancreatitis who has been sober from alcohol since December 2020 presents with concern for anxiety and alcohol withdrawal after starting drinking alcohol again 1 week ago. Last drink 5 PM last night. Heart rate and blood pressure minimally elevated on arrival now improved. EKG is a rate of 98, sinus, no STEMI nondiagnostic. Patient demonstrates no signs of acute alcohol withdrawal on exam. Upon standing in the room, heart rate increased to 130s. Differential diagnosis includes dehydration, alcohol withdrawal, electrolyte abnormality. History and presentation does not appear consistent with ACS, PE, CVA. Will obtain screening labs, urinalysis, and give fluids and Ativan and reassess. Labs reviewed. White blood cell count 6. Hemoglobin 11. Bicarb 15. Anion gap 19. Creatinine 3.3 which is his baseline. Troponin negative. Magnesium 1.7, will replete. Alcohol level 30. COVID swab negative. Lipase 609 but has had m uch higher results in the past year and he denies any pain so presentation not consistent with acute pancreatitis. Urine notes trace ketones but no evidence of infection. Labs appear consistent with alcoholic ketoacidosis. We will continue IV fluid hydration and monitoring and consider recheck of labs. If his heart rate, blood pressure and labs improve, will consider discharge. If patient remains hypertensive, tachycardic and no improvement in labs, will admit for continued monitoring, IV fluid hydration and recheck of labs. Repeat BMP notes significant improvement in anion gap acidosis. Anion gap near normalized. Patient reassessed and continues to feel better. Heart rate within normal limits. Blood pressure improved. He demonstrates no signs of acute alcohol withdrawal. Patient feels comfortable going home. Will send home with a few tabs of Ativan to take as needed and directed for symptoms of alcohol withdrawal. Advised to follow up with the primary care doctor for re-evaluation. Usual and customary return precautions given prior to discharge. Medical Records Medical records reviewed: Yes I reviewed the patient's medical records. Lab Data Lab results reviewed: Yes I reviewed the patient's lab results. Labs: Laboratory Tests Range/Units 06/09/21 06/09/21 06/09/21 10:45 10:45 10:45 WBC (4.4-10.8) 10^3/uL 6.21 RBC (4.36-5.78) 10^6/uL 3.62 L Hgb (13.5-17.5) g/dL 11.3 L Hct (40.0-50.0) % 33.9 L MCV (80-95) fL 93.6 MCH (27.0-33.0) pg 31.2 MCHC (32.0-36.0) % 33.3 RDW (11.8-14.1) % 14.4 H Plt Count (130-400) 10^3/uL 198 MPV (8.0-11.0) fL 10.8 Immature Gran % 0.5 Neutrophils % 87.2 Lymphocytes % 8.7 Monocytes % 2.9 Eosinophils % 0.2 Basophils % 0.5 Nucleated RBC % % 0 Absolute Neutrophils (1.2-6.7) 10^3/uL 5.42 Absolute Lymphocytes (1.2-3.4) 10^3/uL 0.54 L Absolute Monocytes (0.1-0.8) 10^3/uL 0.18 Absolute Eosinophils (0.0-0.7) 10^3/uL 0.01 Absolute Basophils (0.0-0.2) 10^3/uL 0.03 Sodium (136-145) mmol/L 135 L Potassium (3.5-5.1) mmol/L 4.5 Chloride (98-107) mmol/L 100 Carbon Dioxide (21.0-32.0) mmol/L 15.1 L Anion Gap (3-11) mmol/L 19.9 H BUN (7-18) mg/dL 52 H Creatinine (0.70-1.30) mg/dL 3.3 H Estimated GFR/1.73 m2 (mL/min/1.73m2) 18.79 Glucose (74-106) mg/dL 79 Calcium (8.5-10.1) mg/dL 8.8 Magnesium (1.8-2.4) mg/dL 1.7 L Total Bilirubin (0.2-1.0) mg/dL 0.3 AST (15-37) U/L 33 ALT (16-63) U/L 32 Alkaline Phosphatase (46-116) U/L 79 Troponin I (<or=60) ng/L < 50 Total Protein (6.4-8.2) g/dL 8.0 Albumin (3.4-5.0) g/dL 4.0 Lipase (73-393) U/L Urine Color (Yellow) Urine Clarity (Clear) Urine pH (5-8) Ur Specific [place] (1.005-1.025) Urine Protein (Negative) mg/dL Urine Ketones (Negative) mg/dL Urine Blood (Negative) Urine Nitrite (Negative) Urine Bilirubin (Negative) Urine Urobilinogen (Up TO 0.2) EU/dL Ur Leukocyte Esterase (Negative) Urine RBC (0-2) HPF Urine WBC (0-5) HPF Ur Epithelial Cells (Negative) HPF Urine Crystals Urine Bacteria (Negative) HPF Urine Mucus Ur Culture Indicated? Urine Glucose (Negative) mg/dL Ethyl Alcohol (<10) mg/dL 30.2 H COVID-19 Source SARS-CoV-2 (PCR) (Negative) Range/Units 06/09/21 06/09/21 06/09/21 10:45 11:00 11:10 WBC (4.4-10.8) 10^3/uL RBC (4.36-5.78) 10^6/uL Hgb (13.5-17.5) g/dL Hct (40.0-50.0) % MCV (80-95) fL MCH (27.0-33.0) pg MCHC (32.0-36.0) % RDW (11.8-14.1) % Plt Count (130-400) 10^3/uL MPV (8.0-11.0) fL Immature Gran % Neutrophils % Lymphocytes % Monocytes % Eosinophils % Basophils % Nucleated RBC % % Absolute Neutrophils (1.2-6.7) 10^3/uL Absolute Lymphocytes (1.2-3.4) 10^3/uL Absolute Monocytes (0.1-0.8) 10^3/uL Absolute Eosinophils (0.0-0.7) 10^3/uL Absolute Basophils (0.0-0.2) 10^3/uL Sodium (136-145) mmol/L Potassium (3.5-5.1) mmol/L Chloride (98-107) mmol/L Carbon Dioxide (21.0-32.0) mmol/L Anion Gap (3-11) mmol/L BUN (7-18) mg/dL Creatinine (0.70-1.30) mg/dL Estimated GFR/1.73 m2 (mL/min/1.73m2) Glucose (74-106) mg/dL Calcium (8.5-10.1) mg/dL Magnesium (1.8-2.4) mg/dL Total Bilirubin (0.2-1.0) mg/dL AST (15-37) U/L ALT (16-63) U/L Alkaline Phosphatase (46-116) U/L Troponin I (<or=60) ng/L Total Protein (6.4-8.2) g/dL Albumin (3.4-5.0) g/dL Lipase (73-393) U/L 609 H Urine Color (Yellow) Yellow Urine Clarity (Clear) Clear Urine pH (5-8) 5.5 Ur Specific [place] (1.005-1.025) >= 1.030 H Urine Protein (Negative) mg/dL 100 H Urine Ketones (Negative) mg/dL Trace H Urine Blood (Negative) Small H Urine Nitrite (Negative) Negative Urine Bilirubin (Negative) Negative Urine Urobilinogen (Up TO 0.2) EU/dL 0.2 Ur Leukocyte Esterase (Negative) Negative Urine RBC (0-2) HPF 0-2 Urine WBC (0-5) HPF Negative Ur Epithelial Cells (Negative) HPF Negative Urine Crystals Not Applicable Urine Bacteria (Negative) HPF Rare Urine Mucus Not Applicable Ur Culture Indicated? No Urine Glucose (Negative) mg/dL Negative Ethyl Alcohol (<10) mg/dL COVID-19 Source Nasal/Nares SARS-CoV-2 (PCR) (Negative) Negative Range/Units 06/09/21 13:10 WBC (4.4-10.8) 10^3/uL RBC (4.36-5.78) 10^6/uL Hgb (13.5-17.5) g/dL Hct (40.0-50.0) % MCV (80-95) fL MCH (27.0-33.0) pg MCHC (32.0-36.0) % RDW (11.8-14.1) % Plt Count (130-400) 10^3/uL MPV (8.0-11.0) fL Immature Gran % Neutrophils % Lymphocytes % Monocytes % Eosinophils % Basophils % Nucleated RBC % % Absolute Neutrophils (1.2-6.7) 10^3/uL Absolute Lymphocytes (1.2-3.4) 10^3/uL Absolute Monocytes (0.1-0.8) 10^3/uL Absolute Eosinophils (0.0-0.7) 10^3/uL Absolute Basophils (0.0-0.2) 10^3/uL Sodium (136-145) mmol/L 134 L Potassium (3.5-5.1) mmol/L 4.4 Chloride (98-107) mmol/L 103 Carbon Dioxide (21.0-32.0) mmol/L 19.3 L Anion Gap (3-11) mmol/L 11.7 H BUN (7-18) mg/dL 48 H Creatinine (0.70-1.30) mg/dL 2.9 H Estimated GFR/1.73 m2 (mL/min/1.73m2) 21.81 Glucose (74-106) mg/dL 135 H Calcium (8.5-10.1) mg/dL 7.8 L Magnesium (1.8-2.4) mg/dL Total Bilirubin (0.2-1.0) mg/dL AST (15-37) U/L ALT (16-63) U/L Alkaline Phosphatase (46-116) U/L Troponin I (<or=60) ng/L Total Protein (6.4-8.2) g/dL Albumin (3.4-5.0) g/dL Lipase (73-393) U/L Urine Color (Yellow) Urine Clarity (Clear) Urine pH (5-8) Ur Specific [place] (1.005-1.025) Urine Protein (Negative) mg/dL Urine Ketones (Negative) mg/dL Urine Blood (Negative) Urine Nitrite (Negative) Urine Bilirubin (Negative) Urine Urobilinogen (Up TO 0.2) EU/dL Ur Leukocyte Esterase (Negative) Urine RBC (0-2) HPF Urine WBC (0-5) HPF Ur Epithelial Cells (Negative) HPF Urine Crystals Urine Bacteria (Negative) HPF Urine Mucus Ur Culture Indicated? Urine Glucose (Negative) mg/dL Ethyl Alcohol (<10) mg/dL COVID-19 Source SARS-CoV-2 (PCR) (Negative) ECG Data Attestation: I personally reviewed and interpreted this ECG (s) as follows: Interpretation: Rate of 98, sinus, no acute ST elevation or depression. CO 159. QRS 104. QTc 430. HPI General Mode of arrival: ambulatory . Date/Time Provider Initiated Documentation: 06/09/21 10:25 . Limitations to Documentation: no limitations . Information obtained by: patient . HPI Narrative: Pt is a 66yo M w/ a h/o alcohol abuse and withdrawal, hypertension, hyperlipidemia, GERD, CKD, pancreatitis who presents to the ED w/ a c/o feeling anxious and concern for alcohol withdrawal. Patient had been sober from alcohol since December 2020 and started drinking again 1 week ago. 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 Patient states he had started drinking about a pint daily 1 week ago and is now up to 1 quart daily for the past few days. He states his last drink was 5 PM last night. He states since then he has had feelings of anxiety, shaking and feeling jittery . He denies any headache, visual changes, chest pain, shortness of breath, abdominal pain, vomiting or diarrhea. He has not eaten much food for the past 2 days. He states he feels dehydrated . He denies any drug use or new recent medications. He is vaccinated for COVID and denies any known exposure to coronavirus. Related Data Home Medications Medication Instructions Recorded Confirmed vitamin B complex 1 tab PO DAILY 08/09/20 06/09/21 metoprolol succinate 100 mg 100 mg PO DAILY #90 tab 10/13/20 06/09/21 tablet,extended release 24 hr lisinopril 5 mg tablet 5 mg PO DAILY #90 tab 11/22/20 06/09/21 naltrexone 50 mg tablet 50 mg PO DAILY #90 tab-cap 01/03/21 06/09/21 amlodipine 10 mg tablet 10 mg PO DAILY #90 tab 02/17/21 06/09/21 [id number] 1 cap PO TID #90 cap 05/02/21 06/09/21 6,000-19,000-30,000 unit capsule,delayed rel allopurinol 100 mg tablet 100 mg PO DAILY #90 tab-cap 06/01/21 06/09/21 omeprazole 40 mg capsule,delayed 40 mg PO DAILY #90 cap 06/06/21 06/09/21 release Previous Rx's Medication Instructions Recorded metoprolol succinate 100 mg 100 mg PO DAILY #90 tab 10/13/20 tablet,extended release 24 hr lisinopril 5 mg tablet 5 mg PO DAILY #90 tab 11/22/20 naltrexone 50 mg tablet 50 mg PO DAILY #90 tab-cap 01/03/21 amlodipine 10 mg tablet 10 mg PO DAILY #90 tab 02/17/21 [id number] 1 cap PO TID #90 cap 05/02/21 6,000-19,000-30,000 unit capsule,delayed rel allopurinol 100 mg tablet 100 mg PO DAILY #90 tab-cap 06/01/21 omeprazole 40 mg capsule,delayed 40 mg PO DAILY #90 cap 06/06/21 release Allergies Allergy/AdvReac Type Severity Reaction Status Date / Time morphine Allergy Intermediate HIVES/RASH Verified 06/09/21 11:27 General Stated Complaint: ETOHWithdr VICTORIA: 2 Review of Systems All systems reviewed & are unremarkable except as noted in HPI and below Constitutional Constitutional: Reports as per HPI, Denies chills and Denies fever(s) Eyes Eyes: Denies blurry vision ENT Ears, Nose, Mouth, and Throat: Denies dizziness, Denies sore throat and Denies throat swelling Cardiovascular Cardiovascular: Denies chest pain and Denies dyspnea Respiratory Respiratory: Denies cough and Denies dyspnea Gastrointestinal Gastrointestinal: Denies abdominal pain, Denies diarrhea and Denies vomiting Genitourinary Genitourinary: Denies hematuria and Denies dysuria Musculoskeletal Musculoskeletal: Denies back pain and Denies numbness Integumentary/Breasts Skin/Breast: Denies lesions and Denies rash Neurologic Neurologic: Denies dizziness, Denies localized weakness, Denies numbness and Reports other (feels shaky and jittery) Allergic/Immunologic Allergic/Immunologic: Denies throat swelling [facility] All Active Problems (Updated 06/09/21 @ 14:37 by Nola De La Vega DO) Alcohol abuse (Chronic) Dehydration (Acute) Leg edema, right (Acute) Chronic kidney disease (Chronic) stage 4 Alcohol withdrawal (Acute) Hiatal hernia (Chronic) Barretts esophagus (Acute) Gallstone (Acute) Pancreatitis (Chronic) Chronic alcoholic pancreatitis (Acute) Discharge planning issues (Acute) Acute on chronic renal insufficiency (Acute) Alcohol withdrawal (Acute) Acute pancreatitis (Acute) Ruptured extensor tendon of hand or wrist (Acute) EPL left thumb Anemia in chronic kidney disease (CKD) (Acute) Hypokalemia (Acute) Hypomagnesemia (Acute) Transaminitis (Acute) Discharge planning issues (Acute) DVT prophylaxis (Acute) Weight loss, unintentional (Acute) GERD (gastroesophageal reflux disease) (Chronic) Acute kidney injury superimposed on chronic kidney disease (Acute) Alcoholic ketoacidosis (Acute) Alcohol abuse (Chronic) Alcohol withdrawal (Acute) Lumbar spondylosis (Chronic) History of stress test (Acute) Status post total knee replacement (Acute) Renal insufficiency (Chronic 10/17/16) Reflux esophagitis (Chronic 09/24/95) GERD in excess of 20 years. on PPI that entire time ?esophageal stricture Hypertension (Chronic) Hyperlipidemia (Chronic) Medical History Alcohol abuse Anemia in chronic kidney disease (CKD) Barretts esophagus Gallstone Gout Hiatal hernia History of basal cell cancer (~06/2019) Left ear Hyperlipidemia Hypertension Lumbar spondylosis Pancreatitis Reflux esophagitis (09/24/95) GERD in excess of 20 years. on PPI that entire time ?esophageal stricture Renal insufficiency (10/17/16) Surgical History H/O partial resection of colon s/p ostomy reversal Replacement of total knee joint 2013-RIGHT STRESS TEST (~01/2003) Family History Mother Breast cancer Father Heart disease Hyperlipidemia Sister Alcohol abuse Depression Sister Alcohol abuse Sister No problems noted. Brother Hyperlipidemia Brother No problems noted. Brother No problems noted. Brother No problems noted. Brother No problems noted. Maternal Grandfather No problems noted. Paternal Grandfather Alcohol abuse Hyperlipidemia Maternal Grandmother Alcohol abuse Paternal Grandmother Hyperlipidemia Stroke Son Testicular cancer Son No problems noted. Son No problems noted. Son No problems noted. Social History Smoking/Tobacco Use Status: Former Tobacco Use tobacco type: cigarettes Quit Date: 05/27/73 Second Hand Exposure: No Smoking risk assessment performed?: Yes Alcohol Intake: current Alcohol Intake frequency: 3 or more drinks per day Alcohol type: hard liquor Counseling given: Yes Drug use: Current Sobriety Substance use type: marijuana Household members: spouse current occupation: [employer] Pets and animals: Yes Pets and animals: dog(s) Duration: > 90 minutes/day Frequency: daily Hoa/Sabianism: Judaism Special hoa needs: No Do you feel safe at home: Yes Do you feel safe in your relationship?: Yes Exam Const General: cooperative and no acute distress HENMT Head: normal to inspection Face and sinus: normal facial exam Eyes General: appearance normal, both eyes and all related structures Pupils: PERRL EOM: EOM intact bilaterally Neck Neck: normal visual inspection and No submandibular swelling Lymphatic: no lymphadenopathy noted Chest Chest: normal inspection of the chest and no tenderness Resp Effort & Inspection: normal respiratory effort and able to speak in complete sentences Auscultation: clear to auscultation bilaterally Cardio Rate: regular rate Rhythm: regular rhythm GI Inspection: normal to inspection Palpation: soft, not firm, not rigid and nontender Auscultation: normal bowel sounds Skin General skin exam: no rashes or lesions noted Neuro General: patient alert, patient awake and patient oriented x3 Cognition: normal cognition Speech: speech normal Motor: muscle tone normal throughout Sensory Exam: no sensory deficits noted Extrem General: normal to inspection, full ROM, capillary refill normal, no calf tenderness bilaterally and no edema Psych Appearance: grossly normal Mental Status: mental status grossly normal Speech and Movement: speech and movement normal Affect: normal affect Course Vital Signs Vital signs: Vital Signs Temperature 98.4 F 06/09/21 10:28 Pulse 105 H 06/09/21 10:28 Respiratory Rate 16 06/09/21 10:28 Blood Pressure 155/83 H 06/09/21 10:28 Pulse Oximetry 99 06/09/21 10:28 Temperature 98.4 F 06/09/21 10:28 Temperature Source Skin 06/09/21 10:28 Pulse 105 H 06/09/21 10:28 Respiratory Rate 16 06/09/21 10:28 Blood Pressure 155/83 H 06/09/21 10:28 Blood Pressure Position Sitting 06/09/21 10:28 Pulse Oximetry 99 06/09/21 10:28 Oxygen Delivery Method Room Air 06/09/21 10:28 Oxygen Flow Rate 0 06/09/21 10:28 Pain Level 8 06/09/21 10:28
[2021-06-09 11:12] LABS: Abs Immature Grans 0.03 10^3/uL (0.0-0.06); Absolute Basophil Count 0.03 10^3/uL (0.0-0.2); Absolute Eosinophil Count 0.01 10^3/uL (0.0-0.7); Absolute Lymphocyte Count 0.54 10^3/uL (1.2-3.4); Absolute Monocyte Count 0.18 10^3/uL (0.1-0.8); Absolute Neutrophil Count 5.42 10^3/uL (1.2-6.7); Basophils % 0.5; Eosinophils % 0.2; HCT 33.9 % (40.0-50.0); HGB 11.3 g/dL (13.5-17.5); Immature Grans % 0.5; Lymphocytes % 8.7; MCH 31.2 pg (27.0-33.0); MCHC 33.3 % (32.0-36.0); MCV 93.6 fL (80-95); MPV 10.8 fL (8.0-11.0); Monocytes % 2.9; Neutrophils % 87.2; Nucleated RBC 0 %; Platelet Count 198 10^3/uL (130-400); RBC 3.62 10^6/uL (4.36-5.78); RDW 14.4 % (11.8-14.1); RDW-SD 49.2 fL; WBC 6.21 10^3/uL (4.4-10.8)
[2021-06-09 11:16] LABS: Source Nasal/Nares
[2021-06-09] MEDS: Normal Saline 1,000 ML 1000 ML IV ×2 (11:18→12:16)
[2021-06-09] MEDS: Ondansetron 4 MG/2 ML VIAL IVP (11:19)
[2021-06-09] MEDS: LORazepam 2 MG/ML VIAL 0.5 MG IVP (11:19)
[2021-06-09 11:32] LABS: Bilirubin Negative (Negative); Blood Small (Negative); Clarity Clear (Clear); Glucose Negative (Negative); Ketones Trace mg/dL (Negative); Leukocyte Esterase Negative (Negative); Nitrite Negative (Negative); Specific Gravity >= 1.030 (1.005-1.025); Urobilinogen 0.2 EU/dL (Up TO 0.2); pH 5.5 (5-8)
[2021-06-09 11:33] LABS: ALT 32 U/L (16-63); AST 33 U/L (15-37); Alkaline Phosphatase 79 U/L (46-116); Anion Gap 19.9 mmol/L (3-11); BUN 52 mg/dL (7-18); Bilirubin, Total 0.3 mg/dL (0.2-1.0); CO2 15.1 mmol/L (21.0-32.0); CREATININE 3.3 mg/dL (0.70-1.30); Calcium 8.8 mg/dL (8.5-10.1); Chloride 100 mmol/L (98-107); ETHANOL BLOOD 30.2 mg/dL (<10); Estimated GFR 18.79 (mL/min/1.73m2); Glucose 79 mg/dL (74-106); Potassium 4.5 mmol/L (3.5-5.1); Sodium 135 mmol/L (136-145)
[2021-06-09 11:38] LABS: Magnesium 1.7 mg/dL (1.8-2.4); Troponin I < 50 ng/L (<or=60)
[2021-06-09] MEDS: MAGNESIUM SULFATE 1 GM/100 ML BAG IVPB (11:51)
[2021-06-09 11:57] LABS: Bacteria Rare HPF (Negative); Epithelial Cells Negative HPF (Negative); RBC 0-2 HPF (0-2); WBC Negative HPF (0-5)
[2021-06-09 11:57] LABS: COVID-19 PCR Negative (Negative)
[2021-06-09 11:58] LABS: C & S Indicated? No
[2021-06-09 12:22] LABS: Lipase 609 U/L (73-393)
[2021-06-09 13:29] LABS: Anion Gap 11.7 mmol/L (3-11); BUN 48 mg/dL (7-18); CO2 19.3 mmol/L (21.0-32.0); CREATININE 2.9 mg/dL (0.70-1.30); Calcium 7.8 mg/dL (8.5-10.1); Chloride 103 mmol/L (98-107); Estimated GFR 21.81 (mL/min/1.73m2); Glucose 135 mg/dL (74-106); Potassium 4.4 mmol/L (3.5-5.1); Sodium 134 mmol/L (136-145)
--- NOTE | 2021-06-09 13:33 | NUR.NOTE ---
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
[2021-06-09] MEDS: LORazepam 0.5 MG TAB 3 MG PO (14:54)
== END 2021-06-09 14:59 | disposition home or self-care (01) ==
PROVIDERS: Emergency Provider Physician Assistant; PCP Family Medicine
DX: F10.20 Alcohol dependence, uncomplicated (principal); E86.0 Dehydration; R79.89 Other specified abnormal findings of blood chemistry
CPT/HCPCS: 36415; 80048; 80053; 83690; 87635; 93005; 96361; 96365; 96375; 99284; 80320; 81003; 81015; 83735; 84484; 85025; 93010; J2060; J2405; J3475

== ENCOUNTER 2021-07-23 16:58 | Inpatient (IN) | payer MEDICARE, SELFPAY ==
[2021-07-23] VITALS (78 sets, daily range): BP systolic 126–151; BP diastolic 81–93; PULSE 78–93; RESP 12–18; TEMP 37–37.1; O2SAT 84–96; BMI 25.8
--- NOTE | 2021-07-23 17:15 | RT.EKG_ITS ---
APPROVED REPORT Exam: Resting ECG Reason for Exam: chest pain Patient Location: E HR:89 bpm ECG Measurements Heart Rate 89 AXIS MO 166 P 41 QRSd 102 QRS 8 QT 351 T 29 QTc 427 Conclusion Sinus rhythm...normal P axis, V-rate 60- 99. Sinus. Normal axis. No STEMI. I have reviewed and interpreted ECG and agree with software generated interpretation.
[2021-07-23] MEDS: Normal Saline 1,000 ML 1000 ML IV ×2 (17:40→20:26)
[2021-07-23 17:45] LABS: Abs Immature Grans 0.02 10^3/uL (0.0-0.06); Absolute Basophil Count 0.06 10^3/uL (0.0-0.2); Absolute Eosinophil Count 0.39 10^3/uL (0.0-0.7); Absolute Lymphocyte Count 0.88 10^3/uL (1.2-3.4); Absolute Monocyte Count 0.63 10^3/uL (0.1-0.8); Absolute Neutrophil Count 8.23 10^3/uL (1.2-6.7); Basophils % 0.6; Eosinophils % 3.8; HCT 32.5 % (40.0-50.0); HGB 10.9 g/dL (13.5-17.5); Immature Grans % 0.2; Lymphocytes % 8.6; MCH 30.8 pg (27.0-33.0); MCHC 33.5 % (32.0-36.0); MCV 91.8 fL (80-95); MPV 10.8 fL (8.0-11.0); Monocytes % 6.2; Neutrophils % 80.6; Nucleated RBC 0 %; Platelet Count 210 10^3/uL (130-400); RBC 3.54 10^6/uL (4.36-5.78); RDW 13.2 % (11.8-14.1); RDW-SD 45.1 fL; WBC 10.21 10^3/uL (4.4-10.8)
[2021-07-23] MEDS: Ondansetron 4 MG/2 ML VIAL IVP (17:54)
--- NOTE | 2021-07-23 18:00 | W.ED.GENAD ---
Discharge Plan Disposition Patient Disposition: [facility] INPATIENT Condition: Stable Discharge Details Clinical Impression: Diverticulitis Admit Date/Time: 07/23/21 22:57 Admit Provider: Waleska Sesay Attending Provider: Waleska Sesay Primary Care Provider: Jorge Chauhan ED Provider: Dionne Keane Discharge Data Discharge Date/Time-TO BE ENTERED AT DEPARTURE: 07/24/21 00:08 Medical Decision Making patient presents with significant abdominal pain left sided, routine abdominal work up started given 1 liter of NS, ondansetron 4 mg IVP, protonix 40 mg IVP still having pain and given dilaudid 0.5 mg IVP 2nd liter of NS ordered. CT results reviewed with DR Wadsworth who is coming in for evaluation recommendations for NGT placement which immediate drained approx 300 ml light greenish drainage. care of patient to Dr Wadsworth plan for surgical repair of gastric volvulus Medical Records Medical records reviewed: Yes I reviewed the patient's medical records. Imaging Data Radiologic Study: Imaging: CT Scan Radiologist's impression: PROCEDURE INFORMATION: Exam: CT Chest Without Contrast; Diagnostic Exam date and time: 07/23/2021 6:49 PM Age: 66 years old Clinical indication: Abdominal pain; Other: RT sided; Right-sided; Prior surgery; Surgery date: 6+ months; Surgery type: Bowel resection due to diverticulitis with temporary colostomy several years ago. Ostomy was reversed several years ago TECHNIQUE: Imaging protocol: Diagnostic computed tomography of the chest without contrast. Radiation optimization: All CT scans at this facility use at least one of these dose optimization techniques: automated exposure control; mA and/or kV adjustment per patient size (includes targeted exams where dose is matched to clinical indication); or iterative reconstruction. COMPARISON: CT ABDOMEN PELVIS WO 06/02/2020 10:55 AM FINDINGS: Thyroid: Normal-appearing thyroid gland. Lungs: Mild compressive atelectasis on the left resulting from the large hiatal hernia. Otherwise, no pulmonary consolidation. Pleural spaces: No pleural effusion or pneumothorax. Heart: Normal-sized heart. Mass effect upon the posterior margin of the heart caused by large hiatal hernia. Coronary artery calcification. Aorta: No thoracic aortic aneurysm. Lymph nodes: Shotty mediastinal lymph nodes, nonspecific. Bones/joints: Subacute-old fractures through the posterior aspect of the left 9th and 10th ribs. No acute fracture seen among the bones of the chest. Thoracic kyphosis. Spinal degenerative change with endplate irregularities and anterior osteophytes at several levels. Soft tissues: Large hiatal hernia measuring 12 cm x 13 cm maximum axial dimension with the gastric fundus located in its normal position below the diaphragm and herniation of the gastric antrum above the diaphragm in keeping with mesenteroaxial gastric volvulus. No gross soft tissue mass or fluid collection seen in the chest wall. IMPRESSION: 1. Large hiatal hernia measuring 12 cm x 13 cm maximum axial dimension with the gastric fundus located in its normal position below the diaphragm and herniation of the gastric antrum above the diaphragm in keeping with mesenteroaxial gastric volvulus. Adjacent hazy fat stranding. This finding is partially also demonstrated on the comparison exam from June 02, 2020. That said, surgery consultation is recommended as this type of hernia can be complicated by ischemia or obstruction. 2. Prominent mass effect upon the posterior wall of the heart by the large hernia. 3. No pulmonary consolidation, pleural effusion, or pneumothorax. PROCEDURE INFORMATION: Exam: CT Abdomen And Pelvis Without Contrast Exam date and time: 07/23/2021 6:49 PM Age: 66 years old Clinical indication: Abdominal pain; Other: RT sided; Right-sided; Prior surgery; Surgery date: 6+ months; Surgery type: Bowel resection due to diverticulitis with temporary colostomy several years ago. Ostomy was reversed several years ago TECHNIQUE: Imaging protocol: Computed tomography of the abdomen and pelvis without contrast. Radiation optimization: All CT scans at this facility use at least one of these dose optimization techniques: automated exposure control; mA and/or kV adjustment per patient size (includes targeted exams where dose is matched to clinical indication); or iterative reconstruction. COMPARISON: CT ABDOMEN PELVIS WO 06/02/2020 10:55 AM FINDINGS: Liver: Grossly unremarkable unenhanced liver. Gallbladder and bile ducts: Moderate gallbladder distention. 5 mm calcified gallstone. No biliary dilatation. Pancreas: Grossly unremarkable unenhanced pancreas. Spleen: Grossly unremarkable unenhanced spleen. Adrenal glands: Normal appearing adrenal glands. Kidneys and ureters: Grossly unremarkable unenhanced kidneys. No radiopaque urinary tract stones, hydronephrosis, or evidence of recent stone passage. Stomach and bowel: No oral contrast. No small bowel dilatation to suggest obstruction. Enteroenteric surgical anastomosis in the right pelvis suggesting a prior small bowel resection. Prior sigmoid resection with a distal colorectal anastomosis. No evidence of diverticulitis or colitis. Appendix: Normal appendix. Intraperitoneal space: No gross ascites or free air. Vasculature: Normal caliber abdominal aorta. Lymph nodes: No pathologically enlarged mesenteric, retroperitoneal, or pelvic sidewall lymph nodes. Urinary bladder: Normal appearing urinary bladder. Reproductive: Normal-sized prostate gland and seminal vesicles. Coarse prostate calcifications. Bones/joints: No acute fracture seen among the bones of the abdomen or pelvis. Spinal degenerative change with discogenic degeneration and anterior osteophytes at several levels. Bilateral facet arthrosis in the lumbosacral region. Soft tissues: No significant ventral or inguinal hernia. IMPRESSION: 1. Prior small bowel resection. Prior distal colonic resection. No acute bowel pathology demonstrated. 2. Moderate gallbladder distention with a 5 mm gallstone. No biliary dilatation. Dictated and Authenticated by: Surinder Breen MD. Ordering:TAYLOR Truong MD Lab Data Lab results reviewed: Yes I reviewed the patient's lab results. Labs: Laboratory Tests Range/Units 07/23/21 07/23/21 07/23/21 17:25 17:25 18:05 WBC (4.4-10.8) 10^3/uL 10.21 RBC (4.36-5.78) 10^6/uL 3.54 L Hgb (13.5-17.5) g/dL 10.9 L Hct (40.0-50.0) % 32.5 L MCV (80-95) fL 91.8 MCH (27.0-33.0) pg 30.8 MCHC (32.0-36.0) % 33.5 RDW (11.8-14.1) % 13.2 Plt Count (130-400) 10^3/uL 210 MPV (8.0-11.0) fL 10.8 Immature Gran % 0.2 Neutrophils % 80.6 Lymphocytes % 8.6 Monocytes % 6.2 Eosinophils % 3.8 Basophils % 0.6 Nucleated RBC % % 0 Absolute Neutrophils (1.2-6.7) 10^3/uL 8.23 H Absolute Lymphocytes (1.2-3.4) 10^3/uL 0.88 L Absolute Monocytes (0.1-0.8) 10^3/uL 0.63 Absolute Eosinophils (0.0-0.7) 10^3/uL 0.39 Absolute Basophils (0.0-0.2) 10^3/uL 0.06 VBG Lactate (0.6-1.4) mmol/L Sodium (136-145) mmol/L 141 Potassium (3.5-5.1) mmol/L 4.9 Chloride (98-107) mmol/L 105 Carbon Dioxide (21.0-32.0) mmol/L 21.9 Anion Gap (3-11) mmol/L 14.1 H BUN (7-18) mg/dL 53 H Creatinine (0.70-1.30) mg/dL 3.2 H Estimated GFR/1.73 m2 (mL/min/1.73m2) 19.47 Glucose (74-106) mg/dL 89 Calcium (8.5-10.1) mg/dL 9.0 Magnesium (1.8-2.4) mg/dL 2.8 H Total Bilirubin (0.2-1.0) mg/dL 0.4 AST (15-37) U/L 28 ALT (16-63) U/L 23 Alkaline Phosphatase (46-116) U/L 90 Total Protein (6.4-8.2) g/dL 7.9 Albumin (3.4-5.0) g/dL 4.3 Lipase (73-393) U/L 305 Urine Color (Yellow) Yellow Urine Clarity (Clear) Clear Urine pH (5-8) 7.5 Ur Specific [place] (1.005-1.025) 1.020 Urine Protein (Negative) mg/dL 100 H Urine Ketones (Negative) mg/dL Trace H Urine Blood (Negative) Negative Urine Nitrite (Negative) Negative Urine Bilirubin (Negative) Negative Urine Urobilinogen (Up TO 0.2) EU/dL 0.2 Ur Leukocyte Esterase (Negative) Negative Urine RBC (0-2) HPF Urine WBC (0-5) HPF Negative Ur Epithelial Cells (Negative) HPF Negative Urine Crystals (Negative) HPF Negative Urine Bacteria (Negative) HPF Negative Urine Mucus (Negative) Negative Ur Culture Indicated? No Urine Glucose (Negative) mg/dL Negative COVID-19 Source Range/Units 07/23/21 07/23/21 21:08 21:20 WBC (4.4-10.8) 10^3/uL RBC (4.36-5.78) 10^6/uL Hgb (13.5-17.5) g/dL Hct (40.0-50.0) % MCV (80-95) fL MCH (27.0-33.0) pg MCHC (32.0-36.0) % RDW (11.8-14.1) % Plt Count (130-400) 10^3/uL MPV (8.0-11.0) fL Immature Gran % Neutrophils % Lymphocytes % Monocytes % Eosinophils % Basophils % Nucleated RBC % % Absolute Neutrophils (1.2-6.7) 10^3/uL Absolute Lymphocytes (1.2-3.4) 10^3/uL Absolute Monocytes (0.1-0.8) 10^3/uL Absolute Eosinophils (0.0-0.7) 10^3/uL Absolute Basophils (0.0-0.2) 10^3/uL VBG Lactate (0.6-1.4) mmol/L 0.4 L Sodium (136-145) mmol/L Potassium (3.5-5.1) mmol/L Chloride (98-107) mmol/L Carbon Dioxide (21.0-32.0) mmol/L Anion Gap (3-11) mmol/L BUN (7-18) mg/dL Creatinine (0.70-1.30) mg/dL Estimated GFR/1.73 m2 (mL/min/1.73m2) Glucose (74-106) mg/dL Calcium (8.5-10.1) mg/dL Magnesium (1.8-2.4) mg/dL Total Bilirubin (0.2-1.0) mg/dL AST (15-37) U/L ALT (16-63) U/L Alkaline Phosphatase (46-116) U/L Total Protein (6.4-8.2) g/dL Albumin (3.4-5.0) g/dL Lipase (73-393) U/L Urine Color (Yellow) Urine Clarity (Clear) Urine pH (5-8) Ur Specific [place] (1.005-1.025) Urine Protein (Negative) mg/dL Urine Ketones (Negative) mg/dL Urine Blood (Negative) Urine Nitrite (Negative) Urine Bilirubin (Negative) Urine Urobilinogen (Up TO 0.2) EU/dL Ur Leukocyte Esterase (Negative) Urine RBC (0-2) HPF Urine WBC (0-5) HPF Ur Epithelial Cells (Negative) HPF Urine Crystals (Negative) HPF Urine Bacteria (Negative) HPF Urine Mucus (Negative) Ur Culture Indicated? Urine Glucose (Negative) mg/dL COVID-19 Source Nasal/Nares HPI General Date/Time Provider Initiated Documentation: 07/23/21 17:10. Limitations to Documentation: no limitations. Information obtained by: patient. HPI Narrative: presents with left sided upper abdominal pain that started yesterday and thought better after eating but awoke during the night with severe pain. states he has not been able to eat or drink today accordingly. he denies similar pain in past. states usually when his hernia acts up he gets heart burn. states surgical repair was not recommended in the past d/t risky procedure. No fevers or chills, no recent contacts with similar symptoms. states bowels and bladder functioning normally with no diarrhea or blood/tarry stools. Related Data Home Medications Medication Instructions Recorded Confirmed vitamin B complex (B 1 tab PO DAILY 08/09/20 07/23/21 Complex-Vitamin B12) metoprolol succinate 100 mg 100 mg PO DAILY #90 tab 10/13/20 07/23/21 tablet,extended release 24 hr lisinopril 5 mg tablet 5 mg PO DAILY #90 tab 11/22/20 07/23/21 naltrexone 50 mg tablet 50 mg PO DAILY #90 tab-cap 01/03/21 06/09/21 amlodipine 10 mg tablet 10 mg PO DAILY #90 tab 02/17/21 07/23/21 [id number] 1 cap PO TID #90 cap 05/02/21 06/09/21 6,000-19,000-30,000 unit capsule,delayed rel (Creon) allopurinol 100 mg tablet 100 mg PO DAILY #90 tab-cap 06/01/21 07/23/21 omeprazole 40 mg capsule,delayed 40 mg PO DAILY #90 cap 06/06/21 07/23/21 release Previous Rx's Medication Instructions Recorded metoprolol succinate 100 mg 100 mg PO DAILY #90 tab 10/13/20 tablet,extended release 24 hr lisinopril 5 mg tablet 5 mg PO DAILY #90 tab 11/22/20 naltrexone 50 mg tablet 50 mg PO DAILY #90 tab-cap 01/03/21 amlodipine 10 mg tablet 10 mg PO DAILY #90 tab 02/17/21 tchtco-[id number] 1 cap PO TID #90 cap 05/02/21 6,000-19,000-30,000 unit capsule,delayed rel (Creon) allopurinol 100 mg tablet 100 mg PO DAILY #90 tab-cap 06/01/21 omeprazole 40 mg capsule,delayed 40 mg PO DAILY #90 cap 06/06/21 release Allergies Allergy/AdvReac Type Severity Reaction Status Date / Time morphine Allergy Intermediate HIVES/RASH Verified 07/23/21 17:35 General Stated Complaint: Abd Prob VICTORIA: 3 Review of Systems All systems reviewed & are unremarkable except as noted in HPI and below Constitutional Constitutional: Denies fever(s) ENT Ears, Nose, Mouth, and Throat: Denies dysphagia, Denies vertigo and Denies dizziness Gastrointestinal Gastrointestinal: Reports abdominal pain, Denies melena, Reports bloating, Denies constipation, Denies dysphagia, Denies diarrhea and Reports nausea Musculoskeletal Musculoskeletal: Denies back pain Neurologic Neurologic: Denies vertigo and Denies dizziness PFSH All Active Problems (Updated 07/25/21 @ 18:01 by Nataliya Dawson DO) Low O2 saturation (Acute) Hypermagnesemia (Acute) Incarcerated hiatal hernia (Acute) s/p laparotomy 07/04/21 Acute gastric volvulus (Acute) Diverticulitis (Chronic) Chronic kidney disease, stage 4 (severe) (Acute) Leg edema, right (Acute) Chronic kidney disease (Chronic) stage 4 Hiatal hernia (Chronic) Gallstone (Acute) Chronic alcoholic pancreatitis (Acute) Acute on chronic renal insufficiency (Acute) Ruptured extensor tendon of hand or wrist (Acute) EPL left thumb Anemia in chronic kidney disease (CKD) (Acute) Hypokalemia (Acute) Hypomagnesemia (Acute) Transaminitis (Acute) Lumbar spondylosis (Chronic) Reflux esophagitis (Chronic 09/24/95) GERD in excess of 20 years. on PPI that entire time ?esophageal stricture hx of Barretts Hypertension (Chronic) Hyperlipidemia (Chronic) Medical History (Updated 07/25/21 @ 18:01 by Nataliya Dawson DO) Alcohol abuse Gout History of basal cell cancer (~06/2019) Left ear Surgical History (Updated 06/14/21 @ 10:38 by Jorge Chauhan MD) H/O partial resection of colon s/p ostomy reversal Replacement of total knee joint 2012-RIGHT STRESS TEST (~01/2003) Family History Mother Breast cancer Father Heart disease Hyperlipidemia Sister Alcohol abuse Depression Sister Alcohol abuse Sister No problems noted. Brother Hyperlipidemia Brother No problems noted. Brother No problems noted. Brother No problems noted. Brother No problems noted. Maternal Grandfather No problems noted. Paternal Grandfather Alcohol abuse Hyperlipidemia Maternal Grandmother Alcohol abuse Paternal Grandmother Hyperlipidemia Stroke Son Testicular cancer Son No problems noted. Son No problems noted. Son No problems noted. Social History Smoking/Tobacco Use Status: Former Tobacco Use tobacco type: cigarettes Quit Date: 05/27/73 Second Hand Exposure: No Smoking risk assessment performed?: Yes Alcohol Intake: former Counseling given: Yes Drug use: Current Sobriety Substance use type: marijuana Details: no longer drinks - goes to AA meetings Household members: spouse current occupation: [employer] Pets and animals: Yes Pets and animals: dog(s) Duration: > 90 minutes/day Frequency: daily Hoa/Faith: Shinto Special hoa needs: No Do you feel safe at home: Yes Do you feel safe in your relationship?: Yes Exam Const General: cooperative and acute distress moderate Nutritional Appearance: average body habitus Orientation: alert, awake and oriented x3 HENMT Head: normal to inspection Mouth: oral mucosae normal Chest Chest: normal inspection of the chest Resp Effort & Inspection: normal respiratory effort Cardio Rate: regular rate Rhythm: regular rhythm GI Inspection: distended Palpation: soft and tender in the epigastrum, in the LLQ and in the LUQ Skin General skin exam: no rashes or lesions noted Neuro General: patient alert, patient awake and patient oriented x3 Course Vital Signs Vital signs: Vital Signs Temperature 37.0 C 07/23/21 17:13 Pulse 93 H 07/23/21 17:13 Respiratory Rate 16 07/23/21 17:13 Blood Pressure 145/93 H 07/23/21 17:13 Pulse Oximetry 96 07/23/21 17:13 Temperature 37.0 C 07/23/21 17:13 Temperature Source Temporal Artery Scan 07/23/21 17:13 Pulse 93 H 07/23/21 17:13 Respiratory Rate 16 07/23/21 17:13 Blood Pressure 145/93 H 07/23/21 17:13 Blood Pressure Position Sitting 07/23/21 17:13 Pulse Oximetry 96 07/23/21 17:13 Oxygen Delivery Method Room Air 07/23/21 17:13 Oxygen Flow Rate 0 07/23/21 17:13 Pain Level 8 07/23/21 17:13 Lab/Test Results Lab/Test Results: Laboratory Tests Range/Units 07/23/21 17:25 WBC (4.4-10.8) 10^3/uL 10.21 RBC (4.36-5.78) 10^6/uL 3.54 L Hgb (13.5-17.5) g/dL 10.9 L Hct (40.0-50.0) % 32.5 L MCV (80-95) fL 91.8 MCH (27.0-33.0) pg 30.8 MCHC (32.0-36.0) % 33.5 RDW (11.8-14.1) % 13.2 Plt Count (130-400) 10^3/uL 210 MPV (8.0-11.0) fL 10.8 Immature Gran % 0.2 Neutrophils % 80.6 Lymphocytes % 8.6 Monocytes % 6.2 Eosinophils % 3.8 Basophils % 0.6 Nucleated RBC % % 0 Absolute Neutrophils (1.2-6.7) 10^3/uL 8.23 H Absolute Lymphocytes (1.2-3.4) 10^3/uL 0.88 L Absolute Monocytes (0.1-0.8) 10^3/uL 0.63 Absolute Eosinophils (0.0-0.7) 10^3/uL 0.39 Absolute Basophils (0.0-0.2) 10^3/uL 0.06
[2021-07-23 18:07] LABS: ALT 23 U/L (16-63); AST 28 U/L (15-37); Albumin 4.3 g/dL (3.4-5.0); Alkaline Phosphatase 90 U/L (46-116); Anion Gap 14.1 mmol/L (3-11); BUN 53 mg/dL (7-18); Bilirubin, Total 0.4 mg/dL (0.2-1.0); CO2 21.9 mmol/L (21.0-32.0); CREATININE 3.2 mg/dL (0.70-1.30); Chloride 105 mmol/L (98-107); Estimated GFR 19.47 (mL/min/1.73m2); Glucose 89 mg/dL (74-106); Lipase 305 U/L (73-393); Magnesium 2.8 mg/dL (1.8-2.4); Potassium 4.9 mmol/L (3.5-5.1); Sodium 141 mmol/L (136-145); Total Protein 7.9 g/dL (6.4-8.2)
[2021-07-23 18:36] LABS: Bilirubin Negative (Negative); Blood Negative (Negative); Clarity Clear (Clear); Glucose Negative (Negative); Ketones Trace mg/dL (Negative); Leukocyte Esterase Negative (Negative); Nitrite Negative (Negative); Urobilinogen 0.2 EU/dL (Up TO 0.2); pH 7.5 (5-8)
--- NOTE | 2021-07-23 18:45 | DI.CT_ITS ---
Exam(s) CT CHEST/ABD/PEL WO EXAM: CT CHEST/ABD/PEL WO CLINICAL HISTORY: right sided chest and upper abd pain. TECHNIQUE: Imaging Protocol: Axial computed tomography images with coronal and sagittal reformatted images were created and reviewed CONTRAST MATERIAL: Intravenous: Omnipaque 350 Contrast volume:None Oral: / no COMPARISON: CR CHEST 2 VIEWS PA,LAT from 03/15/[address] ABDOMEN PELVIS WO from 04/11/[address] ABDOMEN PELVIS WO from 06/02/2020 FINDINGS: CHEST: Tracheobronchial tree: Patent where visualized. Mediastinum and Ignacia: No dominant adenopathy or fluid collection. Pulmonary parenchyma: No consolidation or dominant measurable mass. Compressive atelectasis adjacent to large hiatal hernia. Pleura: No effusion or pneumothorax. Lymph nodes: Within normal limits. Aorta: Thoracic portion non-dilated. Heart: Normal size. Coronary artery calcifications. Bones: Degenerative disc changes. Old left rib fractures.. No lytic or blastic lesions. Large hiatal hernia containing approximately 50 percent of the stomach. The fundus is a located in t he normal position beneath the diaphragm. The body and antrum are displaced into the chest consisten t with mesenteroaxial gastric volvulus. This appears unchanged from 2020. ABDOMEN: Liver: Normal density. No measurable mass. Gallbladder and biliary tract: Single small stone. No biliary dilation. Pancreas: Normal density, no mass or inflammatory process. Spleen: Normal. Kidneys: Normal size, contour and axis. No radiodense stones or obstructive uropathy. No masses seen. Adrenal glands: No masses seen. Aorta: Abdominal portion non-dilated. Lymph nodes: Within normal limits. Soft tissues: Unremarkable. PELVIS: Bladder: Symmetric distention, no gross wall thickening. Bowel: No obstruction or bowel wall thickening. Peritoneal cavity: No ascites, collection or mesenteric inflammatory response. Two areas of anastomo sis sigmoid and rectosigmoid. Bones: Degenerative disc changes greatest L4-5 L5-S1. Reproductive organs: Within normal limits. IMPRESSION: Large hiatus hernia with mesenteroaxial axial gastric volvulus. No definite obstruction. RADIATION DOSE DELIVERED: 997.94mGy.cm Total DLP DATA REPOSITORY: All CT scans at this facility are submitted to the National Radiology Data Registry (NRDR) Dose Index Registry (DIR) with the [employer] ([employer]). RADIATION OPTIMIZATION: All CT scans at this facility use at least one of these dose optimization te chniques: automated exposure control; mA and/or kV adjustment per patient size (includes targeted exa ms where dose is matched to clinical indication); or iterative reconstruction.
[2021-07-23 18:48] LABS: WBC Negative HPF (0-5)
[2021-07-23 18:49] LABS: Bacteria Negative HPF (Negative); C & S Indicated? No; Crystals Negative HPF (Negative); Epithelial Cells Negative HPF (Negative); Mucus Negative (Negative)
[2021-07-23] MEDS: Pantoprazole 40 MG VIAL IVP (19:49)
--- NOTE | 2021-07-23 20:07 | DI.VRAD_ITS ---
PROCEDURE INFORMATION: Exam: CT Chest Without Contrast; Diagnostic Exam date and time: 07/23/2021 6:49 PM Age: 66 years old Clinical indication: Abdominal pain; Other: RT sided; Right-sided; Prior surgery; Surgery date: 6+ months; Surgery type: Bowel resection due to diverticulitis with temporary colostomy several years ago. Ostomy was reversed several years ago TECHNIQUE: Imaging protocol: Diagnostic computed tomography of the chest without contrast. Radiation optimization: All CT scans at this facility use at least one of these dose optimization techniques: automated exposure control; mA and/or kV adjustment per patient size (includes targeted exams where dose is matched to clinical indication); or iterative reconstruction. COMPARISON: CT ABDOMEN PELVIS WO 06/02/2020 10:55 AM FINDINGS: Thyroid: Normal-appearing thyroid gland. Lungs: Mild compressive atelectasis on the left resulting from the large hiatal hernia. Otherwise, no pulmonary consolidation. Pleural spaces: No pleural effusion or pneumothorax. Heart: Normal-sized heart. Mass effect upon the posterior margin of the heart caused by large hiatal hernia. Coronary artery calcification. Aorta: No thoracic aortic aneurysm. Lymph nodes: Shotty mediastinal lymph nodes, nonspecific. Bones/joints: Subacute-old fractures through the posterior aspect of the left 9th and 10th ribs. No acute fracture seen among the bones of the chest. Thoracic kyphosis. Spinal degenerative change with endplate irregularities and anterior osteophytes at several levels. Soft tissues: Large hiatal hernia measuring 12 cm x 13 cm maximum axial dimension with the gastric fundus located in its normal position below the diaphragm and herniation of the gastric antrum above the diaphragm in keeping with mesenteroaxial gastric volvulus. No gross soft tissue mass or fluid collection seen in the chest wall. IMPRESSION: 1. Large hiatal hernia measuring 12 cm x 13 cm maximum axial dimension with the gastric fundus located in its normal position below the diaphragm and herniation of the gastric antrum above the diaphragm in keeping with mesenteroaxial gastric volvulus. Adjacent hazy fat stranding. This finding is partially also demonstrated on the comparison exam from June 02, 2020. That said, surgery consultation is recommended as this type of hernia can be complicated by ischemia or obstruction. 2. Prominent mass effect upon the posterior wall of the heart by the large hernia. 3. No pulmonary consolidation, pleural effusion, or pneumothorax. PROCEDURE INFORMATION: Exam: CT Abdomen And Pelvis Without Contrast Exam date and time: 07/23/2021 6:49 PM Age: 66 years old Clinical indication: Abdominal pain; Other: RT sided; Right-sided; Prior surgery; Surgery date: 6+ months; Surgery type: Bowel resection due to diverticulitis with temporary colostomy several years ago. Ostomy was reversed several years ago TECHNIQUE: Imaging protocol: Computed tomography of the abdomen and pelvis without contrast. Radiation optimization: All CT scans at this facility use at least one of these dose optimization techniques: automated exposure control; mA and/or kV adjustment per patient size (includes targeted exams where dose is matched to clinical indication); or iterative reconstruction. COMPARISON: CT ABDOMEN PELVIS WO 06/02/2020 10:55 AM FINDINGS: Liver: Grossly unremarkable unenhanced liver. Gallbladder and bile ducts: Moderate gallbladder distention. 5 mm calcified gallstone. No biliary dilatation. Pancreas: Grossly unremarkable unenhanced pancreas. Spleen: Grossly unremarkable unenhanced spleen. Adrenal glands: Normal appearing adrenal glands. Kidneys and ureters: Grossly unremarkable unenhanced kidneys. No radiopaque urinary tract stones, hydronephrosis, or evidence of recent stone passage. Stomach and bowel: No oral contrast. No small bowel dilatation to suggest obstruction. Enteroenteric surgical anastomosis in the right pelvis suggesting a prior small bowel resection. Prior sigmoid resection with a distal colorectal anastomosis. No evidence of diverticulitis or colitis. Appendix: Normal appendix. Intraperitoneal space: No gross ascites or free air. Vasculature: Normal caliber abdominal aorta. Lymph nodes: No pathologically enlarged mesenteric, retroperitoneal, or pelvic sidewall lymph nodes. Urinary bladder: Normal appearing urinary bladder. Reproductive: Normal-sized prostate gland and seminal vesicles. Coarse prostate calcifications. Bones/joints: No acute fracture seen among the bones of the abdomen or pelvis. Spinal degenerative change with discogenic degeneration and anterior osteophytes at several levels. Bilateral facet arthrosis in the lumbosacral region. Soft tissues: No significant ventral or inguinal hernia. IMPRESSION: 1. Prior small bowel resection. Prior distal colonic resection. No acute bowel pathology demonstrated. 2. Moderate gallbladder distention with a 5 mm gallstone. No biliary dilatation. Dictated and Authenticated by: Surinder Breen MD. Ordering:TAYLOR Truong MD
[2021-07-23] MEDS: ACETAMINOPHEN 1,000 MG/100 ML BTL 400 MG IVPB (20:26)
[2021-07-23] MEDS: HYDROmorphone 2 MG/ML VIAL 0.5 MG IVP (21:03)
[2021-07-23 21:12] LABS: Lactate 0.4 mmol/L (0.6-1.4)
[2021-07-23 21:25] LABS: Source Nasal/Nares
[2021-07-23 21:36] LABS: Troponin I < 50 ng/L (<or=60)
[2021-07-23 22:30] LABS: COVID-19 PCR Negative (Negative)
--- NOTE | 2021-07-23 22:35 | W.PM.HP.N ---
Date of service: 07/23/21 Time of Service: 21:35 Assessment and Plan Assessment and plan (1) Acute gastric volvulus: Status: Acute Assessment and plan: -NG tube placed in the ER -After discussing all risks, benefits and alternatives with the patient and his , informed consent was obtained for exploratory laparotomy for reduction of gastric volvulus and gastropexy. With a history of multiple previous open surgeries, an open procedure was chosen rather than attempted initial laparoscopic in order to expedite gastric reduction and prevent inadvertent injury to surrounding bowel. -Likely open gastrostomy tube to be placed at the same time to reinforce suture gastropexy, will be placed to gravity -Type and screen to be sent -Covid test pending -ICU admission expected for close monitoring (2) Chronic kidney disease: Status: Chronic (3) Hiatal hernia: Status: Chronic (4) Chronic alcoholic pancreatitis: Status: Acute (5) Anemia in chronic kidney disease (CKD): Status: Acute (6) Reflux esophagitis: Status: Chronic (7) Hypertension: Status: Chronic (8) Hyperlipidemia: Status: Chronic History of Present Illness Narrative: 66 year old male with a history of alcohol abuse with recent relapse, CKD, HTN, and longstanding hiatal hernia who presented to the ER complaining of upper abdominal pain for the last 2 days. Patient states he has felt discomfort for the last week or so but pain did not become severe until recently. 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 He did have one episode of forced emesis today but was able to eat meals yesterday. He has a history of diverticulitis with colostomy and reversal as well as small bowel resection. Remote history of EGD and colonoscopy at [facility] [place] revealing large hiatal hernia but no elective intervention was offered. Patient denies any fever, chills, change in bowel habits or hematemesis. Basic laboratory studies were done as well as CT of the chest and abdomen revealing acute gastric volvulus. I was asked to see the patient for the above reasons in consultation in the ER. Review of Systems All systems reviewed & are unremarkable except as noted in HPI and below Cardiovascular Cardiovascular: Denies dyspnea Respiratory Respiratory: Denies chest congestion, Denies cough, Denies hemoptysis and Denies dyspnea Gastrointestinal Gastrointestinal: Reports abdominal pain, Denies change in bowel habits, Denies constipation, Reports dyspepsia, Reports nausea, Reports vomiting and Denies hematemesis PFSH All Active Problems (Updated 07/23/21 @ 22:43 by Waleska Sesay DO) Acute gastric volvulus (Acute) Diverticulitis (Chronic) Chronic kidney disease, stage 4 (severe) (Acute) Leg edema, right (Acute) Chronic kidney disease (Chronic) stage 4 Hiatal hernia (Chronic) Gallstone (Acute) Chronic alcoholic pancreatitis (Acute) Acute on chronic renal insufficiency (Acute) Ruptured extensor tendon of hand or wrist (Acute) EPL left thumb Anemia in chronic kidney disease (CKD) (Acute) Hypokalemia (Acute) Hypomagnesemia (Acute) Transaminitis (Acute) Lumbar spondylosis (Chronic) Reflux esophagitis (Chronic 09/24/95) GERD in excess of 20 years. on PPI that entire time ?esophageal stricture hx of Barretts Hypertension (Chronic) Hyperlipidemia (Chronic) Medical History (Updated 07/23/21 @ 22:43 by Waleska Sesay DO) Alcohol abuse Gout History of basal cell cancer (~06/2019) Left ear Surgical History (Updated 06/14/21 @ 10:38 by Jorge Chauhan MD) H/O partial resection of colon s/p ostomy reversal Replacement of total knee joint 2012-RIGHT STRESS TEST (~01/2003) Family History Mother Breast cancer Father Heart disease Hyperlipidemia Sister Alcohol abuse Depression Sister Alcohol abuse Sister No problems noted. Brother Hyperlipidemia Brother No problems noted. Brother No problems noted. Brother No problems noted. Brother No problems noted. Maternal Grandfather No problems noted. Paternal Grandfather Alcohol abuse Hyperlipidemia Maternal Grandmother Alcohol abuse Paternal Grandmother Hyperlipidemia Stroke Son Testicular cancer Son No problems noted. Son No problems noted. Son No problems noted. Social History Smoking/Tobacco Use Status: Former Tobacco Use tobacco type: cigarettes Quit Date: 05/27/73 Second Hand Exposure: No Smoking risk assessment performed?: Yes Alcohol Intake: former Counseling given: Yes Drug use: Current Sobriety Substance use type: marijuana Details: no longer drinks - goes to AA meetings Household members: spouse current occupation: [employer] Pets and animals: Yes Pets and animals: dog(s) Duration: > 90 minutes/day Frequency: daily Hoa/Jehovah'S Witness: Jainism Special hoa needs: No Do you feel safe at home: Yes Do you feel safe in your relationship?: Yes Meds Allergies and Home Medications Allergies Allergy/AdvReac Type Severity Reaction Status Date / Time morphine Allergy Intermediate HIVES/RASH Verified 07/23/21 17:35 Home Medications Medication Instructions Recorded Confirmed Type vitamin B complex (B 1 tab PO DAILY 08/09/20 07/23/21 History Complex-Vitamin B12) metoprolol succinate 100 mg 100 mg PO DAILY #90 tab 10/13/20 07/23/21 Rx tablet,extended release 24 hr lisinopril 5 mg tablet 5 mg PO DAILY #90 tab 11/22/20 07/23/21 Rx naltrexone 50 mg tablet 50 mg PO DAILY #90 tab-cap 01/03/21 06/09/21 Rx amlodipine 10 mg tablet 10 mg PO DAILY #90 tab 02/17/21 07/23/21 Rx [id number]-[id number] 1 cap PO TID #90 cap 05/02/21 06/09/21 Rx 6,000-19,000-30,000 unit capsule,delayed rel (Creon) allopurinol 100 mg tablet 100 mg PO DAILY #90 tab-cap 06/01/21 07/23/21 Rx omeprazole 40 mg capsule,delayed 40 mg PO DAILY #90 cap 06/06/21 07/23/21 Rx release Exam Const General: cooperative, no acute distress and other (appears mildly uncomfortable) Nutritional Appearance: average body habitus HENMI Head: normal to inspection, normocephalic and atraumatic General nose exam: other (NG tube in place) Resp Effort & Inspection: normal respiratory effort, able to speak in complete sentences, no audible wheezes, no cough and no respiratory distress Cardio Rate: regular rate Rhythm: regular rhythm GI Inspection: normal to inspection, non-distended and scar (midline scar well-healed) Palpation: soft, not firm and tender in the epigastrum Percussion: normal to percussion Skin General skin exam: no rashes or lesions noted Neuro General: patient alert, patient awake and patient oriented x3 Results Labs Result diagrams: 07/23/21 17:25 07/23/21 17:25 Labs: Laboratory Results - last 24 hr 07/23/21 07/23/21 07/23/21 17:25 17:25 18:05 WBC 10.21 RBC 3.54 L Hgb 10.9 L Hct 32.5 L MCV 91.8 MCH 30.8 MCHC 33.5 RDW 13.2 Plt Count 210 MPV 10.8 Immature Gran % 0.2 Neutrophils % 80.6 Lymphocytes % 8.6 Monocytes % 6.2 Eosinophils % 3.8 Basophils % 0.6 Nucleated RBC % 0 Absolute Neutrophils 8.23 H Absolute Lymphocytes 0.88 L Absolute Monocytes 0.63 Absolute Eosinophils 0.39 Absolute Basophils 0.06 VBG Lactate Sodium 141 Potassium 4.9 Chloride 105 Carbon Dioxide 21.9 Anion Gap 14.1 H BUN 53 H Creatinine 3.2 H Estimated GFR/1.73 m2 19.47 Glucose 89 Calcium 9.0 Magnesium 2.8 H Total Bilirubin 0.4 AST 28 ALT 23 Alkaline Phosphatase 90 Troponin I Total Protein 7.9 Albumin 4.3 Lipase 305 Urine Color Yellow Urine Clarity Clear Urine pH 7.5 Ur Specific Molt 1.020 Urine Protein 100 H Urine Ketones Trace H Urine Blood Negative Urine Nitrite Negative Urine Bilirubin Negative Urine Urobilinogen 0.2 Ur Leukocyte Esterase Negative Urine RBC Urine WBC Negative Ur Epithelial Cells Negative Urine Crystals Negative Urine Bacteria Negative Urine Mucus Negative Ur Culture Indicated? No Urine Glucose Negative COVID-19 Source SARS-CoV-2 (PCR) 07/23/21 07/23/21 07/23/21 21:08 21:08 21:20 WBC RBC Hgb Hct MCV MCH MCHC RDW Plt Count MPV Immature Gran % Neutrophils % Lymphocytes % Monocytes % Eosinophils % Basophils % Nucleated RBC % Absolute Neutrophils Absolute Lymphocytes Absolute Monocytes Absolute Eosinophils Absolute Basophils VBG Lactate 0.4 L Sodium Potassium Chloride Carbon Dioxide Anion Gap BUN Creatinine Estimated GFR/1.73 m2 Glucose Calcium Magnesium Total Bilirubin AST ALT Alkaline Phosphatase Troponin I < 50 Total Protein Albumin Lipase Urine Color Urine Clarity Urine pH Ur Specific Molt Urine Protein Urine Ketones Urine Blood Urine Nitrite Urine Bilirubin Urine Urobilinogen Ur Leukocyte Esterase Urine RBC Urine WBC Ur Epithelial Cells Urine Crystals Urine Bacteria Urine Mucus Ur Culture Indicated? Urine Glucose COVID-19 Source Nasal/Nares SARS-CoV-2 (PCR) Negative Last Vital Signs Temp 98.8 F 07/23/21 19:53 Pulse 79 07/23/21 22:30 Resp 16 07/23/21 19:32 BP 139/81 07/23/21 22:30 Pulse Ox 94 07/23/21 22:31
--- NOTE | 2021-07-23 23:06 | ANES.PREOP_ITS ---
General Info Date of Service Date Performed: 07/23/21 Height: 5 ft 6 in Weight: 72.575 kg Body Mass Index (BMI): 25.8 Surgical Procedure: Operation Date: 07/23/21 23:00 Proposed Procedure Side Surgeon p Exploratory Laparotomy Waleska Sesay DO Meds Allergies and Home Medications Allergies Allergy/AdvReac Type Severity Reaction Status Date / Time morphine Allergy Intermediate HIVES/RASH Verified 07/23/21 17:35 Home Medication Medication Instructions Recorded vitamin B complex (B 1 tab PO DAILY 08/09/20 Complex-Vitamin B12) metoprolol succinate 100 mg 100 mg PO DAILY #90 tab 10/13/20 tablet,extended release 24 hr lisinopril 5 mg tablet 5 mg PO DAILY #90 tab 11/22/20 naltrexone 50 mg tablet 50 mg PO DAILY #90 tab-cap 01/03/21 amlodipine 10 mg tablet 10 mg PO DAILY #90 tab 02/17/21 vnupvn-uryeeggk-uypzznn 1 cap PO TID #90 cap 05/02/21 6,000-19,000-30,000 unit capsule,delayed rel (Creon) allopurinol 100 mg tablet 100 mg PO DAILY #90 tab-cap 06/01/21 omeprazole 40 mg capsule,delayed 40 mg PO DAILY #90 cap 06/06/21 release Current Visit Medications: Current Medications Generic Name Dose Route Start Last Admin Trade Name Freq PRN Reason Stop Dose Admin Heparin Sodium (Porcine) 5,000 units 07/24/21 09:00 Heparin 5,000 Units/Ml Vial SC Q12H LENY Hydromorphone HCl 0.5 mg 07/23/21 20:52 07/23/21 21:03 Hydromorphone 2 Mg/Ml Vial IVP 0.5 mg Q4H PRN PRN Administration Sodium Chloride 500 mls @ 0 mls/hr 07/23/21 22:57 Saline 500ml Bag IV PRN PRN As Directed Ringer's Solution 1,000 mls @ 50 mls/hr 07/23/21 23:00 IV INFUSION LENY Cefazolin Sodium 1,000 mg/ 100 mls @ 200 mls/hr 07/23/21 23:00 Sodium Chloride IVPB 07/23/21 23:29 NOW ONE Acetaminophen 1,000 mg in 100 mls @ 400 mls/hr 07/23/21 23:00 Ofirmev IVPB Q8H LENY Multivitamins 10 ml/ Thiamine 1,011.2 mls @ 42 mls/hr 07/24/21 08:30 HCl 100 mg/ Folic Acid 1 mg/ IV Dextrose/Sodium Chloride DAILY [facility] IV Miscellaneous Supplies 1 each 07/23/21 23:00 Iv Access IV DIRECTED LENY Lorazepam 0 mg 07/23/21 23:03 Lorazepam 2 Mg/Ml Vial IVP DIRECTED PRN Ondansetron HCl 4 mg 07/23/21 17:11 07/23/21 17:54 Ondansetron 4 Mg/2 Ml Vial IVP 4 mg Q4H PRN PRN Administration Ondansetron HCl 4 mg 07/23/21 22:57 Ondansetron 4 Mg/2 Ml Vial IVP Q4H PRN PRN Pantoprazole Sodium 40 mg 07/23/21 23:00 Pantoprazole 40 Mg Vial IVP Q24H LENY Sodium Chloride 0 ml 07/23/21 22:57 Normal Saline Flush 10 Ml Syr IVP PRN PRN PFSH Active Problems Active Problems: Problem Status Onset Code Acute gastric volvulus K31.89 Diverticulitis K57.92 Chronic kidney disease, stage 4 (severe) N18.4 Leg edema, right R60.0 Chronic kidney disease N18.9 Hiatal hernia K44.9 Gallstone K80.20 Chronic alcoholic pancreatitis K86.0 Acute on chronic renal insufficiency N28.9, N18.9 Ruptured extensor tendon of hand or wrist S66.819A Anemia in chronic kidney disease (CKD) N18.9, D63.1 Hypokalemia E87.6 Hypomagnesemia E83.42 Transaminitis R74.0 Lumbar spondylosis M47.816 Reflux esophagitis 09/24/95 K21.0 Hypertension I10 Hyperlipidemia E78.5 Medical History Medical History (Updated 07/23/21 @ 22:43 by Waleska Sesay DO) Alcohol abuse Gout History of basal cell cancer (~06/2019) Left ear Surgical History Surgical History (Updated 06/14/21 @ 10:38 by Jorge Chauhan MD) H/O partial resection of colon s/p ostomy reversal Replacement of total knee joint 2012-RIGHT STRESS TEST (~01/2003) Tobacco Smoking/Tobacco Use Status: Former Tobacco Use Passive smoking exposure: No Second hand exposure: No Alcohol Alcohol Intake: former Substance Use Substance use: Current Sobriety Substance use type: marijuana Details: no longer drinks - goes to AA meetings Vital Signs and Lab Results Vital Signs Most Recent Vital Signs in EMR: Most Recent Vital Signs Temp Pulse Resp BP Pulse Ox 37.1 C 79 16 139/81 94 07/23/21 19:53 07/23/21 22:30 07/23/21 19:32 07/23/21 22:30 07/23/21 22:31 Lab Results Result Diagrams: 07/23/21 17:07/23/21 17: Blood Type / Crossmatch: No Data to Display Complete Blood Count: White Blood Count 10.21 10^3/uL (4.4-10.8) 07/23/21 17:25 07/23/21 Red Blood Count 3.54 10^6/uL (4.36-5.78) L 07/23/21 17:07/23/21 Hemoglobin 10.9 g/dL (13.5-17.5) L 07/23/21 17:25 07/23/21 Hematocrit 32.5 % (40.0-50.0) L 07/23/21 17:07/23/21 Platelet Count 210 10^3/uL (130-400) 07/23/21 17:25 07/23/21 Venous Blood Lactate 0.4 mmol/L (0.6-1.4) L 07/23/21 21:08 07/23/21 Complete Metabolic Panel: Sodium Level 141 mmol/L (136-145) 07/23/21 17:07/23/21 Potassium Level 4.9 mmol/L (3.5-5.1) 07/23/21 17:07/23/21 Chloride Level 105 mmol/L (98-107) 07/23/21 17:07/23/21 Carbon Dioxide Level 21.9 mmol/L (21.0-32.0) 07/23/21 17:25 07/23/21 Blood Urea Nitrogen 53 mg/dL (7-18) H 07/23/21 17:25 07/23/21 Creatinine 3.2 mg/dL (0.70-1.30) H 07/23/21 17:25 07/23/21 Estimated GFR/1.73 m2 19.47 (mL/min/1.73m2) 07/23/21 17:25 07/23/21 Magnesium Level 2.8 mg/dL (1.8-2.4) H 07/23/21 17:25 07/23/21 Calcium Level 9.0 mg/dL (8.5-10.1) 07/23/21 17:25 07/23/21 Albumin 4.3 g/dL (3.4-5.0) 07/23/21 17:25 07/23/21 Glucose Level 89 mg/dL (74-106) 07/23/21 17:25 07/23/21 Liver Function Panel: Alanine Aminotransferase (ALT/SGPT) 23 U/L (16-63) 07/23/21 17:25 07/23/21 Aspartate Amino Transf (AST/SGOT) 28 U/L (15-37) 07/23/21 17:25 07/23/21 Coagulation Panel: No Data to Display Cardiac Panel: Troponin I < 50 ng/L (<or=60) 07/23/21 Arterial Blood Gas: No Data to Display Venous Blood Gas: No Data to Display Pancreas Panel: Lipase 305 U/L (73-393) 07/23/21 17:25 07/23/21 Thyroid Panel: No Data to Display Infectious Disease: Coronavirus (COVID-19)(PCR) Negative (Negative) 07/23/21 21:20 07/23/21 Coronavirus 2019 Source Nasal/Nares 07/23/21 21:20 07/23/21 Blood Cultures: No Data to Display Toxicology Panel: No Data to Display Anesthesia Assessment and Plan Anesthesia History Personal History: No History of Anesthesia Complications Family History: No Family History of Anesthesia Complications Exercise Tolerance Exercise Tolerance: Metabolic Equivalents>4 Cardiac & Pulmonary Exam Cardiac Exam: Normal S1/S2 Heart Sounds Pulmonary Exam: Clear Bilateral Breath Sounds Implantable Cardiac Device Does patient have a Pacemaker or an ICD?: No Airway Exam Known Difficult Airway: No Mallampati Class: 3 Mouth Opening: Narrow (< 3cm) Thyromental Distance: Less than 3 cm Neck Range of Motion: Limited ROM Neck Circumference: Normal Teeth Condition: Normal Dentition ASA Classification ASA Score: ASA 2 Emergency Case?: Yes NPO Status NPO Status: Full Stomach Anesthesia Plan Resuscitation Status: Full Code Anesthesia Technique: General Anesthesia Airway Planned: Endotracheal Tube Monitors Used: Standard Monitors Preoperative Comments:: 66 yo male with gastric volvulus. Sig PMHx: CKDIV (k 4.9), former EtOH abuse, anemia, GERD, HTN, former smoker Sig pain on arrival to ED - 05 mg hydromorphone, hasn't been able to eat/drink. NGT in place ~ 300 out on wall suction.
[2021-07-23] MEDS: Lactated Ringers 1,000 ML 50 ML IV (23:58)
[2021-07-24] VITALS (66 sets, daily range): BP systolic 106–148; BP diastolic 65–93; PULSE 64–86; RESP 10–22; TEMP 36.3–36.8; TEMPC 36.2; O2SAT 91–96
[2021-07-24] MEDS: Bupivacaine 0.25% Pres-Free 30 ML VIAL (00:53)
--- NOTE | 2021-07-24 01:56 | W.PM.OP ---
Date of service: 07/24/21 Time of Service: 01:56 Operative Note Operative Note DATE OF PROCEDURE: 07/24/21 PRE-OP DIAGNOSIS: Gastric volvulus, chronic hiatal hernia POST-OP DIAGNOSIS: same PROCEDURE: Exploratory laparotomg with lysis of adhesions, reduction of gastric volvulus and suture gastropexy SURGEON: Waleska Sesay EDUCATIONAL ADVISOR: Nataliya Calderon ANESTHESIA TYPE: Local By Surgeon and General LMA/ETT Refer to Anesthesia Record ESTIMATED BLOOD LOSS: 35 PATHOLOGY: none sent COMPLICATIONS: None Patient was transported to: ICU Patient's condition: stable Indications: Patient with longstanding hiatal hernia with development of acute epigastric abdominal pain with concern for acute gastric volvulus Findings: Large hiatal hernia, reducible contents brought back into the abdomen and suture gastropexy performed. All visible tissues appeared viable and without overt ischemic changes. Procedure Description: After discussing all risks, benefits and alternatives with the patient, informed consent was obtained for exploratory laparotomy with reduction of gastric volvulus and suture gastropexy with possible PEG tube placement. Patient was given perioperative IV antibiotics prior to the procedure. Once placed on the operating room table in supine position all dependent areas were padded. General anesthesia was initiated and the patient was prepped and draped in the standard sterile fashion. Local anesthesia was infiltrated into the upper midline scar tissue which was subsequently incised with a #10 blade scalpel. Bovie electrocautery was used to dissect down through the fascia hemostatically. Once the fascia was entered, the omentum was dissected free of the anterior abdominal wall and surrounding structures. 2-0 vicryl was used to tie off a portion of omentum in a figure of eight fashion to maintain hemostasis. Kochers were used to retract the left lateral abdominal wall for better visualization. The intra-abdominal portion of the stomach was visualized, the crux of the diaphragm was palpated and a portion of small bowel and herniated omentum was reduced from the hiatal hernia. Once tension was encountered, downward retraction was stopped. Further inspection revealed tissue viability from within the hernia sac. The entire hiatal hernia contents were not able to be fully reduced due to the significant extent of dissection required as well as prolonged anesthesia increasing the risk of perioperative complications. I was able to palpate the hernia and contents within the retrocardiac space. The decision was made to perform a suture gastropexy to secure the reducible contents of the stomach within the abdomen. NG tube was able to be palpated but remained above the diaphragm, due to the size of the hernia it was not able to traverse the border of the diaphragm easily. Several 2-0 silk sutures were used to pexy the remaining portion of the stomach to the anterior abdominal wall in an interrupted fashion along the greater curvature. A portion of gastric antrum was tightly adhered to the diaphragm and therefore not further dissected. Volvulus was reduced in the acute setting to prevent gastric outlet obstruction and potential ischemia. Patient will keep NG tube in place for the next 24-48h. Hemostasis was confirmed prior to exiting the abdominal cavity. The fascia was closed with two 2-0 PDS sutures in a running fashion and skin was closed with eliana. MALISSA dressing was placed over the eliana. All needle sponge and instrument counts were correct x2 at the end of the procedure. The patient was subsequently awakened and transferred to ICU in stable condition.
--- NOTE | 2021-07-24 02:30 | W.ANESPOSTOP ---
Postoperative Evaluation Date, Time and Location Date Performed: 07/24/21 Time Performed: 02:30 Patient Location: Intensive Care Unit Vital Signs Most Recent Imported Vital Signs: Most Recent Vital Signs Temp Pulse Resp BP Pulse Ox 36.7 C 82 19 126/84 92 07/24/21 00:01 07/24/21 00:01 07/24/21 00:01 07/24/21 00:01 07/24/21 00:01 Most Recent Manually Entered Vital Signs: Adult Blood Pressure: 106/73 Heart Rate: 79 Respirations: 22 Oxygen Saturation (%): 92 Temperature (C): 36.2 C Pain Score (0-10 Scale): 6 Pain Score Most Recent Pain Score: Most Recent Pain Score Pain Level 4 07/24/21 00:21 Assessment Mental Status: Arousable with meaningful communication Airway and Respiratory Function: Patent airway with normal (patient baseline) respiratory exam Cardiovascular Function: Hemodynamically Stable Hydration Status: Adequately Hydrated Nausea & Vomiting: No Nausea or Vomiting Pain: Pain is tolerable per patient Peripheral Nerve Block: Patient did not receive a nerve block Postoperative Comments:: brought to ICU on simple FM, encouraged to cough and deep breath.
[2021-07-24] MEDS: Pantoprazole 40 MG VIAL IVP ×2 (02:41→23:40)
[2021-07-24] MEDS: HYDROmorphone 2 MG/ML VIAL 0.5 MG IVP ×5 (02:45→23:49)
[2021-07-24] MEDS: Lactated Ringers 1,000 ML 50 ML IV ×2 (02:47→22:39)
[2021-07-24] MEDS: Normal Saline Flush 10 ML SYR IVP ×5 (02:48→23:41)
[2021-07-24] MEDS: Metoprolol 5 MG/5 ML VIAL IVP ×4 (06:27→23:41)
[2021-07-24] MEDS: ACETAMINOPHEN 1,000 MG/100 ML BTL 400 MG IVPB ×3 (06:27→22:38)
[2021-07-24 07:46] LABS: Abs Immature Grans 0.04 10^3/uL (0.0-0.06); Absolute Basophil Count 0.02 10^3/uL (0.0-0.2); Absolute Eosinophil Count 0.03 10^3/uL (0.0-0.7); Absolute Lymphocyte Count 0.32 10^3/uL (1.2-3.4); Absolute Monocyte Count 0.47 10^3/uL (0.1-0.8); Basophils % 0.2; Eosinophils % 0.3; HCT 30.6 % (40.0-50.0); HGB 9.7 g/dL (13.5-17.5); Immature Grans % 0.4; Lymphocytes % 2.9; MCH 30.1 pg (27.0-33.0); MCHC 31.7 % (32.0-36.0); MPV 11.2 fL (8.0-11.0); Monocytes % 4.3; Neutrophils % 91.9; Nucleated RBC 0 %; Platelet Count 185 10^3/uL (130-400); RBC 3.22 10^6/uL (4.36-5.78); RDW 13.3 % (11.8-14.1); RDW-SD 46.6 fL; WBC 10.98 10^3/uL (4.4-10.8)
[2021-07-24 07:49] LABS: Absolute Neutrophil Count 10.09 10^3/uL (1.2-6.7)
[2021-07-24 08:13] LABS: Magnesium 2.7 mg/dL (1.8-2.4)
--- NOTE | 2021-07-24 08:57 | PDOC.CMIN ---
- If Service Date Differs Date of service: 07/24/21 Time of Service: 08:57 Care Management Initial Assess REASON FOR HOSPITALIZATION:: Gastric Volvulus PAST MEDICAL HISTORY/PAST SURGICAL HISTORY:: All Active Problems (Updated 07/23/21 @ 22:43 by Waleska Sesay DO). Acute gastric volvulus (Acute). Diverticulitis (Chronic). Chronic kidney disease, stage 4 (severe) (Acute). Leg edema, right (Acute). Chronic kidney disease (Chronic). stage 4. Hiatal hernia (Chronic). Gallstone (Acute). Chronic alcoholic pancreatitis (Acute). Acute on chronic renal insufficiency (Acute). Ruptured extensor tendon of hand or wrist (Acute). EPL left thumb. Anemia in chronic kidney disease (CKD) (Acute). Hypokalemia (Acute). Hypomagnesemia (Acute). Transaminitis (Acute). Lumbar spondylosis (Chronic). Reflux esophagitis (Chronic 09/24/95). GERD in excess of 20 years. on PPI that entire time. ?esophageal stricture. hx of Barretts. Hypertension (Chronic). Hyperlipidemia (Chronic). Medical History (Updated 07/23/21 @ 22:43 by Waleska Sesay DO). Alcohol abuse. Gout. History of basal cell cancer (~06/2019). Left ear. Surgical History (Updated 06/14/21 @ 10:38 by Jorge Chauhan MD). H/O partial resection of colon. s/p ostomy reversal. Replacement of total knee joint. 2013-RIGHT. STRESS TEST (~01/2003) PREVIOUS FUNCTIONAL STATUS/SOCIAL/FAMILY SUPPORTS:: All Active Problems (Updated 07/23/21 @ 22:43 by Waleska Sesay DO). Acute gastric volvulus (Acute). Diverticulitis (Chronic). Chronic kidney disease, stage 4 (severe) (Acute). Leg edema, right (Acute). Chronic kidney disease (Chronic). stage 4. Hiatal hernia (Chronic). Gallstone (Acute). Chronic alcoholic pancreatitis (Acute). Acute on chronic renal insufficiency (Acute). Ruptured extensor tendon of hand or wrist (Acute). EPL left thumb. Anemia in chronic kidney disease (CKD) (Acute). Hypokalemia (Acute). Hypomagnesemia (Acute). Transaminitis (Acute). Lumbar spondylosis (Chronic). Reflux esophagitis (Chronic 09/24/95). GERD in excess of 20 years. on PPI that entire time. ?esophageal stricture. hx of Barretts. Hypertension (Chronic). Hyperlipidemia (Chronic). Medical History (Updated 07/23/21 @ 22:43 by Waleska Sesay DO). Alcohol abuse. Gout. History of basal cell cancer (~06/2019). Left ear. Surgical History (Updated 06/14/21 @ 10:38 by Jorge Chauhan MD). H/O partial resection of colon. s/p ostomy reversal. Replacement of total knee joint. 2012-RIGHT. STRESS TEST (~01/2003) CURRENT FUNCTIONAL STATUS:: Mathew was cooperative and pleasant when CM met. He was sleepy, as he went to the OR this morning for laparotomy and gastropexy. He is feeling well other than left shoulder pain. ADVANCE DIRECTIVES:: None on file at [facility] Has patient been provided with info about the portal/API?: Yes Did the patient sign up for the portal?: Yes (Previously) CODE STATUS:: Full Code INSURANCE COVERAGE / FINANCIAL ISSUES:: [employer] [facility] PRIMARY CARE PHYSICIAN:: Jorge Chauhan POTENTIAL DISCHARGE NEEDS:: Follow up appointments. PATIENT/FAMILY EDUCATION NEEDS:: Review discharge instructions, limitations, medications and plan to follow up with community providers. ask me three. ANTICIPATED BARRIERS TO DISCHARGE:: None identified at this time. TRANSPORTATION:: via private vehicle with . PLAN:: Mathew is being monitored and treated in the ICU. Anticipate, he will discharge home with new [facility] services (if indicated) via private vehicle with when medically clear. He will follow up with surgery and PCP and discharge plan of care as prescribed. CM will continue to support discharge planning needs.
[2021-07-24] MEDS: MULTIVITAMIN 10 ML, THIAMINE 100 MG, FOLIC ACID 1 MG in DEXTROSE 5%-0.45% SALINE 1,000 ML 42 ML IV (09:02)
[2021-07-24] MEDS: Heparin 5,000 UNITS/ML VIAL 5000 UNITS SC ×2 (10:21→22:39)
[2021-07-24 11:05] LABS: ALT 32 U/L (16-63); AST 29 U/L (15-37); Albumin 3.7 g/dL (3.4-5.0); Alkaline Phosphatase 82 U/L (46-116); Anion Gap 13.4 mmol/L (3-11); BUN 49 mg/dL (7-18); Bilirubin, Total 0.3 mg/dL (0.2-1.0); CO2 19.6 mmol/L (21.0-32.0); CREATININE 3.1 mg/dL (0.70-1.30); Calcium 8.5 mg/dL (8.5-10.1); Chloride 108 mmol/L (98-107); Glucose 140 mg/dL (74-106); Potassium 4.7 mmol/L (3.5-5.1); Sodium 141 mmol/L (136-145); Total Protein 7.2 g/dL (6.4-8.2)
--- NOTE | 2021-07-24 14:55 | W.PM.PROGNOT ---
Date of Service Date of service: 07/24/21 Time of Service: 14:55 Assessment and Plan Assessment and plan (1) Acute gastric volvulus: Status: Acute Assessment and plan: POD #0 s/p laparotomy and gastropexy with reduction of most of his stomach back into his abdomen He is doing well. -remove Ng tube - may have sips of clears - will move out of ICU - start po medications (2) Hiatal hernia: Status: Chronic (3) Acute on chronic renal insufficiency: Status: Acute (4) Anemia in chronic kidney disease (CKD): Status: Acute Subjective Subjective Interval history since last seen: Mr. Mendez is feeling well. His biggest complaint is his left shoulder hurting. His NG tube has not put out much Exam Const General: cooperative, comfortable and no acute distress HENMT Head: normocephalic and atraumatic Resp Effort & Inspection: normal respiratory effort Auscultation: clear to auscultation bilaterally Cardio Rate: regular rate Rhythm: regular rhythm GI Palpation: soft, no hepatosplenomegaly and tender (mildly tender along the incision) Objective Last Vital Signs Temp 98.1 F 07/24/21 12:36 Pulse 72 07/24/21 14:00 Resp 17 07/24/21 14:30 BP 127/93 H 07/24/21 14:00 Pulse Ox 92 07/24/21 14:30 Laboratory Results - last 24 hr 07/23/21 07/23/21 07/23/21 17:25 17:25 18:05 WBC 10.21 RBC 3.54 L Hgb 10.9 L Hct 32.5 L MCV 91.8 MCH 30.8 MCHC 33.5 RDW 13.2 Plt Count 210 MPV 10.8 Immature Gran % 0.2 Neutrophils % 80.6 Lymphocytes % 8.6 Monocytes % 6.2 Eosinophils % 3.8 Basophils % 0.6 Nucleated RBC % 0 Absolute Neutrophils 8.23 H Absolute Lymphocytes 0.88 L Absolute Monocytes 0.63 Absolute Eosinophils 0.39 Absolute Basophils 0.06 VBG Lactate Sodium 141 Potassium 4.9 Chloride 105 Carbon Dioxide 21.9 Anion Gap 14.1 H BUN 53 H Creatinine 3.2 H Estimated GFR/1.73 m2 19.47 Glucose 89 Calcium 9.0 Magnesium 2.8 H Total Bilirubin 0.4 AST 28 ALT 23 Alkaline Phosphatase 90 Troponin I Total Protein 7.9 Albumin 4.3 Lipase 305 Urine Color Yellow Urine Clarity Clear Urine pH 7.5 Ur Specific [place] 1.020 Urine Protein 100 H Urine Ketones Trace H Urine Blood Negative Urine Nitrite Negative Urine Bilirubin Negative Urine Urobilinogen 0.2 Ur Leukocyte Esterase Negative Urine RBC Urine WBC Negative Ur Epithelial Cells Negative Urine Crystals Negative Urine Bacteria Negative Urine Mucus Negative Ur Culture Indicated? No Urine Glucose Negative COVID-19 Source SARS-CoV-2 (PCR) Patient ABO/Rh Antibody Screen 07/23/21 07/23/21 07/23/21 21:08 21:08 21:20 WBC RBC Hgb Hct MCV MCH MCHC RDW Plt Count MPV Immature Gran % Neutrophils % Lymphocytes % Monocytes % Eosinophils % Basophils % Nucleated RBC % Absolute Neutrophils Absolute Lymphocytes Absolute Monocytes Absolute Eosinophils Absolute Basophils VBG Lactate 0.4 L Sodium Potassium Chloride Carbon Dioxide Anion Gap BUN Creatinine Estimated GFR/1.73 m2 Glucose Calcium Magnesium Total Bilirubin AST ALT Alkaline Phosphatase Troponin I < 50 Total Protein Albumin Lipase Urine Color Urine Clarity Urine pH Ur Specific [place] Urine Protein Urine Ketones Urine Blood Urine Nitrite Urine Bilirubin Urine Urobilinogen Ur Leukocyte Esterase Urine RBC Urine WBC Ur Epithelial Cells Urine Crystals Urine Bacteria Urine Mucus Ur Culture Indicated? Urine Glucose COVID-19 Source Nasal/Nares SARS-CoV-2 (PCR) Negative Patient ABO/Rh Antibody Screen 07/23/21 07/24/21 07/24/21 23:15 06:55 06:55 WBC RBC Hgb Hct MCV MCH MCHC RDW Plt Count MPV Immature Gran % Neutrophils % Lymphocytes % Monocytes % Eosinophils % Basophils % Nucleated RBC % Absolute Neutrophils Absolute Lymphocytes Absolute Monocytes Absolute Eosinophils Absolute Basophils VBG Lactate Sodium 141 Potassium 4.7 Chloride 108 H Carbon Dioxide 19.6 L Anion Gap 13.4 H BUN 49 H Creatinine 3.1 H Estimated GFR/1.73 m2 20.20 Glucose 140 H Calcium 8.5 Magnesium 2.7 H Total Bilirubin 0.3 AST 29 ALT 32 Alkaline Phosphatase 82 Troponin I Total Protein 7.2 Albumin 3.7 Lipase Urine Color Urine Clarity Urine pH Ur Specific [place] Urine Protein Urine Ketones Urine Blood Urine Nitrite Urine Bilirubin Urine Urobilinogen Ur Leukocyte Esterase Urine RBC Urine WBC Ur Epithelial Cells Urine Crystals Urine Bacteria Urine Mucus Ur Culture Indicated? Urine Glucose COVID-19 Source SARS-CoV-2 (PCR) Patient ABO/Rh A Negative Antibody Screen NEGATIVE 07/24/21 06:55 WBC 10.98 H RBC 3.22 L Hgb 9.7 L Hct 30.6 L MCV 95.0 D MCH 30.1 MCHC 31.7 L RDW 13.3 Plt Count 185 MPV 11.2 H Immature Gran % 0.4 Neutrophils % 91.9 Lymphocytes % 2.9 Monocytes % 4.3 Eosinophils % 0.3 Basophils % 0.2 Nucleated RBC % 0 Absolute Neutrophils 10.09 H Absolute Lymphocytes 0.32 L Absolute Monocytes 0.47 Absolute Eosinophils 0.03 Absolute Basophils 0.02 VBG Lactate Sodium Potassium Chloride Carbon Dioxide Anion Gap BUN Creatinine Estimated GFR/1.73 m2 Glucose Calcium Magnesium Total Bilirubin AST ALT Alkaline Phosphatase Troponin I Total Protein Albumin Lipase Urine Color Urine Clarity Urine pH Ur Specific [place] Urine Protein Urine Ketones Urine Blood Urine Nitrite Urine Bilirubin Urine Urobilinogen Ur Leukocyte Esterase Urine RBC Urine WBC Ur Epithelial Cells Urine Crystals Urine Bacteria Urine Mucus Ur Culture Indicated? Urine Glucose COVID-19 Source SARS-CoV-2 (PCR) Patient ABO/Rh Antibody Screen
--- NOTE | 2021-07-24 20:31 | NUR.NOTE ---
Nursing Note: Pt transferred from ICU 222 to Med Surg 212. Patient arrived to room at 20:17. Patient is alert and oriented to person, place, time and events. Patient is currently denying any pain. Lung sounds clear, heart regular. Patient states he is passing gas. Patient has a aniceto dressing to mid abdomen c/d/i. #18 to LAC with banana bag running. Vital signs stable.
[2021-07-25] VITALS (15 sets, daily range): BP systolic 132–142; BP diastolic 78–90; PULSE 70–84; RESP 16–18; TEMP 36.3–36.9; O2SAT 88–95
--- NOTE | 2021-07-25 | DI.RAD_ITS ---
Exam(s) XR PORTABLE CHEST AP POST LINE EXAM: XR PORTABLE CHEST AP POST LINE CLINICAL HISTORY: ngt place TECHNIQUE: COMPARISON: CR XR SOFT TISSUE NECK from 07/25/2021 CR,XR XR PORTABLE CHEST AP from 07/25/2021 CR XR PORTABLE CHEST AP POST LINE from 07/25/2021 FINDINGS: Portable chest at 2121 hours July 25 note is again made of elevation of diaphragm on the left and a large left hiatus hernia, possible left pleural effusion. An NG tube has apparently been inserted b ut is not visible in the lower cervical or thoracic region. IMPRESSION: RADIATION DOSE DELIVERED: Total DLP
--- NOTE | 2021-07-25 | DI.RAD_ITS ---
Exam(s) XR PORTABLE CHEST AP POST LINE EXAM: XR PORTABLE CHEST AP POST LINE CLINICAL HISTORY: placement TECHNIQUE: COMPARISON: CR XR PORTABLE CHEST AP POST LINE from 07/25/2021 FINDINGS: Portable AP chest at 2138 hours. Cardiomegaly, presumed left pleural effusion, bibasilar atelectasis versus poor inspiration now noted. Appropriate follow-up films suggested. IMPRESSION: RADIATION DOSE DELIVERED: Total DLP
--- NOTE | 2021-07-25 | DI.RAD_ITS ---
Exam(s) XR PORTABLE CHEST AP EXAM: XR PORTABLE CHEST AP CLINICAL HISTORY: s/p ex lap/low O2 sats TECHNIQUE: COMPARISON: CR CHEST 2 VIEWS PA,LAT from 09/08/[address] CHEST/ABD/PEL WO from 07/23/2021 CR XR PORTABLE CHEST AP POST LINE from 07/25/2021 CR XR PORTABLE CHEST AP POST LINE from 07/25/2021 FINDINGS: Heart appears mildly enlarged. There is a large retrocardiac hiatus hernia. Diaphragm is not well v isualized on the left, left lower lobe infiltrate not excluded. Otherwise lungs appear grossly clear . No gross pleural effusion on this frontal film. IMPRESSION: Large hiatus hernia, left lower lobe not well visualized. Appropriate follow-up films requested. RADIATION DOSE DELIVERED: Total DLP
--- NOTE | 2021-07-25 | DI.RAD_ITS ---
Exam(s) XR PORTABLE CHEST AP POST LINE EXAM: XR PORTABLE CHEST AP POST LINE CLINICAL HISTORY: placement TECHNIQUE: COMPARISON: CR XR PORTABLE CHEST AP POST LINE from 07/25/2021 FINDINGS: Portable AP chest at 2136 hours after adjustment NG tube, the NG tube is still not visualized on the film. No other change. IMPRESSION: RADIATION DOSE DELIVERED: Total DLP
--- NOTE | 2021-07-25 | DI.RAD_ITS ---
Exam(s) XR SOFT TISSUE NECK EXAM: XR SOFT TISSUE NECK CLINICAL HISTORY: placemnt TECHNIQUE: COMPARISON: No exams were available for comparison FINDINGS: AP view of the chest and neck at 2132 hours shows NG tube coiled in the pharyngeal region. No other significant change. IMPRESSION: RADIATION DOSE DELIVERED: Total DLP
[2021-07-25] MEDS: HYDROmorphone 2 MG/ML VIAL 0.5 MG IVP ×6 (03:44→20:41)
[2021-07-25] MEDS: ACETAMINOPHEN 1,000 MG/100 ML BTL 400 MG IVPB ×3 (06:09→23:00)
[2021-07-25] MEDS: Metoprolol 5 MG/5 ML VIAL IVP (06:24)
[2021-07-25] MEDS: amLODIPine 10 MG TAB PO (08:15)
[2021-07-25] MEDS: Lisinopril 5 MG TAB PO (08:15)
[2021-07-25] MEDS: Allopurinol 100 MG TAB PO (08:16)
[2021-07-25] MEDS: Polyethylene Glycol 3350 17 GM PACKET PO (08:16)
[2021-07-25] MEDS: Creon, Lipase 6,000 CAPCR 1 CAP PO ×3 (08:16→17:03)
[2021-07-25] MEDS: Vitamins B Comp w/C TAB 1 TAB PO (08:16)
[2021-07-25] MEDS: Normal Saline Flush 10 ML SYR IVP ×5 (08:19→20:42)
[2021-07-25] MEDS: MULTIVITAMIN 10 ML, THIAMINE 100 MG, FOLIC ACID 1 MG in DEXTROSE 5%-0.45% SALINE 1,000 ML 42 ML IV (09:25)
[2021-07-25] MEDS: Heparin 5,000 UNITS/ML VIAL 5000 UNITS SC ×2 (09:25→22:56)
[2021-07-25] MEDS: Metoprolol CR 50 MG TABCR 100 MG PO (10:05)
--- NOTE | 2021-07-25 11:09 | PDOC.CMPRO ---
- If Service Date Differs Date of service: 07/25/21 Time of Service: 11:09 Care Management Progress Note S/O: Mathew was sitting up in bed when CM met with him. He was alert, oriented, pleasant and easily engaged in conversation. He reported 7 out of 10 epigastric pain, RN notified and IV hydromorphone was administered. Mathew is being followed by surgery and is 1 day s/p laparotomy and gastropexy. He is tolerating ice chips and sheng sips of water. He is ambulating independently in the halls, 95% on RA. He is scoring 0 on CIWA. A: 66 year old male admitted to [facility] on 07/23/21 for Gastric Volvulus, hiatal hernia with development of acute epigastric abdominal pain P: Mathew is being followed by surgery. Anticipate, he will discharge home with new [facility] services (if indicated) via private vehicle with when medically clear. He will follow up with surgery and PCP and discharge plan of care as prescribed. CM will continue to support discharge planning needs.
[2021-07-25] MEDS: Normal Saline 500 ML 30 ML IV (13:49)
--- NOTE | 2021-07-25 14:58 | W.PM.PROGNOT ---
Date of Service Date of service: 07/25/21 Time of Service: 14:58 Assessment and Plan Assessment and plan (1) Incarcerated hiatal hernia: Status: Acute Assessment and plan: POD#1 lapartomy for incarcerated stomach and intestines in a large long standing hiatal hernia. -low O2 sats noted. most likely due to pain and altelectasis. I did review the CXR. the stomach does appear to still be in the chest in the similar position. I did attempt to place an NGT. I could not get this to pass. He still is distended and has minimal BS. No peritonitis. He is resting comfortably. strict NPO change meds to IV can have po tums repeat xray in am and re-attempt to place NGT. cont supportive care 90 mins spent w/ pt (2) Chronic kidney disease, stage 4 (severe): Status: Acute (3) Leg edema, right: Status: Acute (4) Chronic alcoholic pancreatitis: Status: Acute (5) Anemia in chronic kidney disease (CKD): Status: Acute (6) Reflux esophagitis: Status: Chronic (7) Hypertension: Status: Chronic (8) Hyperlipidemia: Status: Chronic (9) Hypermagnesemia: Status: Acute (10) Low O2 saturation: Status: Acute Subjective Subjective Interval history since last seen: Pt is doing well. no headaches. No CP or SOB. no productive cough. no dysuria. no leg pain or swelling. pt has past few puffs of flatus but nothing consistently. He has not moved his bowels. He has no appetite. He feels bloated. Drinking water hurts his abdomen. He is on 2 L of oxygen. He says he has been up walking around and he can pull in 3500 cc on his I-S. no fevers. pt c/o pain at upper incision- resting comfortably and conversation. no tachycardia. Exam Resp Effort & Inspection: normal respiratory effort and able to speak in complete sentences Auscultation: clear to auscultation bilaterally Cardio Jugular venous pressure: no JVD Rate: regular rate Rhythm: regular rhythm GI Inspection: distended Palpation: soft Auscultation: absent bowel sounds Other: PICOS dressing in place. incision c/d/i. ngt is out. pt passing minimal flatus Extrem General: no pedal edema Objective Last Vital Signs Temp 36.6 C 07/25/21 12:16 Pulse 82 07/25/21 12:16 Resp 18 07/25/21 12:16 BP 136/80 07/25/21 12:16 Pulse Ox 92 07/25/21 14:01
[2021-07-25] MEDS: Lactated Ringers 1,000 ML 50 ML IV (18:06)
--- NOTE | 2021-07-25 18:45 | DI.VRAD_ITS ---
PROCEDURE INFORMATION: Exam: XR Chest Exam date and time: 07/25/2021 5:58 PM Age: 66 years old Clinical indication: Dyspnea and shortness of breath; Additional info: S/P ex lap/low o2 sats TECHNIQUE: Imaging protocol: XR of the chest. Views: 1 view. COMPARISON: CT CHEST/ABD/PEL WO 07/23/2021 7:23 PM FINDINGS: Airway: Patent Lungs: Compressive atelectasis in the left lung base. Remainder of the lungs are clear. Pleural spaces: Unremarkable. No pleural effusion. No pneumothorax. Heart/Mediastinum: Stable large hiatal hernia with essentially partial intrathoracic stomach. Cardiomediastinal silhouette difficult to evaluate, however appears grossly unremarkable. Bones/joints: Multilevel old/healed right rib fractures. IMPRESSION: 1. No acute thoracic pathology grossly noted. 2. Incidental findings as above. Dictated and Authenticated by: Elvis Alfonso MD. Ordering:FELIBERTO An MD
[2021-07-25] MEDS: Calcium Carbonate *TUMS* 500 MG CHEW 1000 MG PO (20:40)
[2021-07-25] MEDS: Lidocaine 2% Jelly 11 ML SYR UR (20:40)
[2021-07-25] MEDS: LORazepam 2 MG/ML VIAL IVP (20:41)
[2021-07-25] MEDS: Pantoprazole 40 MG VIAL IVP (22:59)
[2021-07-25] MEDS: Metoclopramide 10 MG/2 ML VIAL 5 MG IVP (22:59)
[2021-07-26] VITALS (17 sets, daily range): BP systolic 135–165; BP diastolic 76–97; PULSE 71–87; RESP 17–18; TEMP 36.1–36.8; O2SAT 94–96
--- NOTE | 2021-07-26 | DI.RAD_ITS ---
Exam(s) RF SMALL BOWEL SERIES EXAM: RF SMALL BOWEL SERIES CLINICAL HISTORY: ? gastric outlet obstruction vs ileus TECHNIQUE: COMPARISON: No exams were available for comparison FINDINGS: Barium was ingested and shows the previously described large hiatal hernia containing large portion o f the stomach. Previous described gastric volvulus is again noted. There is no gross small bowel di latation. Follow-up films were obtained at 2 hours and 4 hours post ingestion of barium. No contras t visible in small bowel or colon on the 2 hour film. On the 4 hour film, there is small quantity of barium visible in mid abdominal small bowel loops and there is barium seen in apparent small bowel loops in the pelvis, presumably in the mid to distal ile um. Findings as described suggest that there is a gastric outlet obstruction, small bowel ileus is u nlikely. The findings were conveyed to to Dr. Tyler. IMPRESSION: RADIATION DOSE DELIVERED: Total DLP
[2021-07-26] MEDS: Metoclopramide 10 MG/2 ML VIAL 5 MG IVP ×4 (05:07→21:47)
[2021-07-26] MEDS: Lactated Ringers 1,000 ML 100 ML IV ×2 (05:13→17:46)
[2021-07-26] MEDS: ACETAMINOPHEN 1,000 MG/100 ML BTL 400 MG IVPB ×3 (05:52→21:48)
[2021-07-26 07:03] LABS: HCT 29.4 % (40.0-50.0); HGB 9.5 g/dL (13.5-17.5); MCH 30.4 pg (27.0-33.0); MCHC 32.3 % (32.0-36.0); MCV 94.2 fL (80-95); MPV 11.1 fL (8.0-11.0); Platelet Count 160 10^3/uL (130-400); RBC 3.12 10^6/uL (4.36-5.78); RDW 13.2 % (11.8-14.1); RDW-SD 45.7 fL; WBC 5.66 10^3/uL (4.4-10.8)
[2021-07-26 07:33] LABS: Anion Gap 10.6 mmol/L (3-11); BUN 32 mg/dL (7-18); CO2 22.4 mmol/L (21.0-32.0); CREATININE 2.4 mg/dL (0.70-1.30); Calcium 8.8 mg/dL (8.5-10.1); Chloride 105 mmol/L (98-107); Estimated GFR 27.14 (mL/min/1.73m2); Ferritin 280 ng/mL (26-388); Glucose 84 mg/dL (74-106); Magnesium 2.1 mg/dL (1.8-2.4); Potassium 4.1 mmol/L (3.5-5.1); Sodium 138 mmol/L (136-145)
[2021-07-26 07:48] LABS: Folate 15.7 ng/mL (8.6-20.0); Vitamin B12 1257 pg/mL (193-986)
[2021-07-26 07:51] LABS: Iron 24 ug/dL (65-175); Total Iron Binding Capacity 205 ug/dL (250-450); Transferrin Sat 12 % (20-55)
--- NOTE | 2021-07-26 08:00 | DI.RAD_ITS ---
Exam(s) XR PORTABLE CHEST AP EXAM: XR PORTABLE CHEST AP CLINICAL HISTORY: hiatal hernia TECHNIQUE: COMPARISON: CT CT CHEST/ABD/PEL WO from 07/23/2021 CR XR SOFT TISSUE NECK from 07/25/2021 CR XR PORTABLE CHEST AP POST LINE from 07/25/2021 CR XR PORTABLE CHEST AP POST LINE from 07/25/2021 CR XR PORTABLE CHEST AP POST LINE from 07/25/2021 FINDINGS: Cardiomegaly and large hiatal hernia are again noted. Obscuration of left hemidiaphragm also again n oted. Possibility of left basilar atelectasis and/or consolidation is again raised. Note is again made of small quantity of intraperitoneal free air, presumably postoperative. IMPRESSION: RADIATION DOSE DELIVERED: Total DLP
--- NOTE | 2021-07-26 08:48 | PGE_ITS ---
Date of Service Date of service: 07/26/21 Time of Service: 08:30 Assessment and Plan Assessment and plan (1) Incarcerated hiatal hernia: Status: Acute Assessment and plan: POD#2 lapartomy for incarcerated stomach and intestines in a large long standing hiatal hernia. -on 2 L of O2. - CXR- no change in size of his stomach. Atelectasis noted. I am worried about gastric outlet obstruction. I have ordered a barium Small bowel follow through. strict NPO Meds have been changed to IV can have po tums - Called [facility] [place] about possible transfer. They have no beds - Will call [facility] about possible transfer. Will attempt placement of NG tube if the contrast doesn't leave the stomach (2) Chronic kidney disease, stage 4 (severe): Status: Acute (3) Leg edema, right: Status: Acute (4) Chronic alcoholic pancreatitis: Status: Acute (5) Anemia in chronic kidney disease (CKD): Status: Acute (6) Reflux esophagitis: Status: Chronic (7) Hypertension: Status: Chronic (8) Hyperlipidemia: Status: Chronic (9) Hypermagnesemia: Status: Acute Assessment and plan: replaced (10) Low O2 saturation: Status: Acute Assessment and plan: Due to large size of stomach compressing his lung Subjective Subjective Interval history since last seen: Mr. Mendez is doing OK. He denies Nausea. He has not had any vomiting. He passed some flatus yesterday but none today. Exam Const General: cooperative, comfortable and no acute distress Orientation: alert and oriented x3 HENMT Head: normocephalic and atraumatic Resp Effort & Inspection: normal respiratory effort Auscultation: clear to auscultation bilaterally Cardio Rate: regular rate Rhythm: regular rhythm GI Palpation: soft and nontender Auscultation: hypoactive bowel sounds Objective Last Vital Signs Temp 97.0 F L 07/26/21 07:33 Pulse 75 07/26/21 07:33 Resp 17 07/26/21 07:33 BP 135/86 07/26/21 07:33 Pulse Ox 96 07/26/21 07:41 Laboratory Results - last 24 hr 07/26/21 07/26/21 07/26/21 06:10 06:10 06:10 WBC 5.66 RBC 3.12 L Hgb 9.5 L Hct 29.4 L MCV 94.2 MCH 30.4 MCHC 32.3 RDW 13.2 Plt Count 160 MPV 11.1 H Sodium 138 Potassium 4.1 Chloride 105 Carbon Dioxide 22.4 Anion Gap 10.6 BUN 32 H D Creatinine 2.4 H D Estimated GFR/1.73 m2 27.14 Glucose 84 D Calcium 8.8 Magnesium 2.1 Iron 24 L TIBC 205 L Transferrin % Sat 12 L Ferritin 280 Vitamin B12 Folate 07/26/21 06:10 WBC RBC Hgb Hct MCV MCH MCHC RDW Plt Count MPV Sodium Potassium Chloride Carbon Dioxide Anion Gap BUN Creatinine Estimated GFR/1.73 m2 Glucose Calcium Magnesium Iron TIBC Transferrin % Sat Ferritin Vitamin B12 1257 H Folate 15.7
--- NOTE | 2021-07-26 09:08 | PDOC.CMPRO ---
- If Service Date Differs Date of service: 07/26/21 Time of Service: 09:08 Care Management Progress Note S/O: Mathew was sitting up in his chair when CM met with him. He is alert, oriented and pleasant. He is being followed by surgery and had some additional imaging this morning. He continues to have ULQ abdominal pain when he takes a deep breath or palpates that area. Per surgery, he will need additional surgical intervention at a Tertiary Hospital, [facility] has no beds. Surgery is contacting [facility] about possible transfer. Mathew is currently NPO and will be getting a NG tube. Mathew is planning on calling his so she can listen in when the surgeon comes in to talk to him about next steps. A: 66 year old male admitted to [facility] on 07/23/21 for Gastric Volvulus, hiatal hernia with development of acute epigastric abdominal pain P: Mathew is being followed by surgery. Anticipate, he will transfer to a Tertiary Hospital for additional surgical intervention. Surgery is reaching out to [facility] to discuss possible transfer, [facility] has no beds. He will likely transport via EMS arranged by nursing supervisor counseling and guidance. CM will continue to support discharge planning needs.
[2021-07-26] MEDS: Heparin 5,000 UNITS/ML VIAL 5000 UNITS SC ×2 (10:30→21:46)
[2021-07-26] MEDS: Normal Saline Flush 10 ML SYR IVP ×4 (10:30→21:47)
[2021-07-26] MEDS: Metoprolol 5 MG/5 ML VIAL IVP ×3 (10:30→21:45)
[2021-07-26] MEDS: HYDROmorphone 2 MG/ML VIAL 0.5 MG IVP ×4 (10:44→22:07)
[2021-07-26] MEDS: Lidocaine 2% Jelly 6 ML SYR (17:48)
[2021-07-26] MEDS: LORazepam 2 MG/ML VIAL (17:48)
--- NOTE | 2021-07-26 18:06 | DI.RAD_ITS ---
Exam(s) XR PORTABLE CHEST AP EXAM: XR PORTABLE CHEST AP CLINICAL HISTORY: NG tube placement TECHNIQUE: 2D digital imaging was performed. COMPARISON: CT CT CHEST/ABD/PEL WO from 07/23/2021 CR XR PORTABLE CHEST AP POST LINE from 07/25/2021 CR,XR XR PORTABLE CHEST AP from 07/25/2021 CR XR PORTABLE CHEST AP POST LINE from 07/25/2021 CR XR PORTABLE CHEST AP POST LINE from 07/25/2021 CR XR SOFT TISSUE NECK from 07/25/2021 CR RF SMALL BOWEL SERIES from 07/26/2021 CR XR PORTABLE CHEST AP from 07/26/2021 FINDINGS: Nasogastric tube tip is not well seen. Appears to project in the stomach. A large hiatal hernia is again noted. Contrast is seen within the stomach. There is a small left pleural effusion. No infil trates are seen. Monitoring leads overlie the chest. IMPRESSION: Nasogastric tube appears to project in the stomach. DATA REPOSITORY: RADIATION DOSE DELIVERED:
--- NOTE | 2021-07-26 18:39 | DI.VRAD_ITS ---
PROCEDURE INFORMATION: Exam: XR Chest Exam date and time: 07/26/2021 5:42 PM Age: 66 years old Clinical indication: Device placement; Ng tube TECHNIQUE: Imaging protocol: XR of the chest. Views: 1 view. Total images: 1 COMPARISON: CR XR PORTABLE CHEST AP 07/26/2021 8:01 AM FINDINGS: Tubes, catheters and devices: NG tube extends into the stomach. There is oral contrast within a partially intrathoracic stomach. Lungs: Lungs are clear without consolidation. Pulmonary jamari: Unremarkable contours. Pleural spaces: There is a mild left pleural effusion. Heart/Mediastinum: Stable mediastinal contours. Bones/joints: Unremarkable. Intraperitoneal space: Visualized upper abdomen is unremarkable. IMPRESSION: NG tube extends into the stomach. Dictated and Authenticated by: García Bryant MD. Ordering:DIANNE Burnett MD
[2021-07-26] MEDS: Pantoprazole 40 MG VIAL IVP (21:47)
[2021-07-27] VITALS (16 sets, daily range): BP systolic 120–149; BP diastolic 80–97; PULSE 72–90; RESP 17–74; TEMP 36.5–37; O2SAT 94–96
[2021-07-27] MEDS: HYDROmorphone 2 MG/ML VIAL 0.5 MG IVP ×5 (03:18→19:56)
[2021-07-27] MEDS: Lactated Ringers 1,000 ML 100 ML IV ×2 (03:18→15:09)
[2021-07-27] MEDS: Metoprolol 5 MG/5 ML VIAL IVP ×4 (04:54→21:46)
[2021-07-27] MEDS: Metoclopramide 10 MG/2 ML VIAL 5 MG IVP ×4 (04:55→21:45)
[2021-07-27] MEDS: ACETAMINOPHEN 1,000 MG/100 ML BTL 400 MG IVPB ×3 (05:01→21:41)
[2021-07-27 07:10] LABS: Anion Gap 13.2 mmol/L (3-11); BUN 30 mg/dL (7-18); CO2 22.8 mmol/L (21.0-32.0); CREATININE 2.3 mg/dL (0.70-1.30); Calcium 9.2 mg/dL (8.5-10.1); Chloride 103 mmol/L (98-107); Glucose 73 mg/dL (74-106); Magnesium 2.1 mg/dL (1.8-2.4); Potassium 4.1 mmol/L (3.5-5.1); Sodium 139 mmol/L (136-145)
[2021-07-27] MEDS: Normal Saline Flush 10 ML SYR IVP ×5 (08:47→21:43)
--- NOTE | 2021-07-27 09:22 | CMPROGNOTE_ITS ---
- If Service Date Differs Date of service: 07/27/21 Time of Service: 09:22 Care Management Progress Note S/O: NG tube placed last night. A: 66 year old male admitted to [facility] on 07/23/21 for Gastric Volvulus, hiatal hernia with development of acute epigastric abdominal pain P: Mathew is being followed by surgery. Anticipate, he will transfer to a Tertiary Hospital for additional surgical intervention. Surgery is reaching out to [facility] to discuss possible transfer, [facility] [place] beds. He will likely transport via EMS arranged by nursing broadcast field supervisor. CM will continue to support discharge planning needs.
--- NOTE | 2021-07-27 09:22 | PDOC.CMPRO ---
- If Service Date Differs Date of service: 07/27/21 Time of Service: 09:22 Care Management Progress Note S/O: NG tube placed last night. A: 66 year old male admitted to [facility] on 07/23/21 for Gastric Volvulus, hiatal hernia with development of acute epigastric abdominal pain P: Mathew is being followed by surgery. Anticipate, he will transfer to a Tertiary Hospital for additional surgical intervention. Surgery is reaching out to [facility] to discuss possible transfer, [facility] has no beds. He will likely transport via EMS arranged by nursing supervisor pre wave. CM will continue to support discharge planning needs.
--- NOTE | 2021-07-27 09:26 | CMPROGNOTE_ITS ---
- If Service Date Differs Date of service: 07/27/21 Time of Service: 09:26 Care Management Progress Note S/O: Mathew was lying in bed when CM met with him. He was alert, oriented and pleasant. He is being followed by surgery. He had a NG tube placed last night and additional imaging today. Mathew has been accepted to [facility], pending bed availability. CM will continue to support discharge planning needs. A: 66 year old male admitted to [facility] on 07/23/21 for Gastric Volvulus, hiatal hernia with development of acute epigastric abdominal pain P: Mathew is being followed by surgery. Anticipate, he will transfer to a Tertiary Hospital for additional surgical intervention. Surgery is reaching out to [facility] to discuss possible transfer, [facility] [place] has no beds. He will likely transport via EMS arranged by nursing wire rope fabrication supervisor. CM will continue to support discharge planning needs.
--- NOTE | 2021-07-27 09:26 | PDOC.CMPRO ---
- If Service Date Differs Date of service: 07/27/21 Time of Service: 09:26 Care Management Progress Note S/O: Mathew was lying in bed when CM met with him. He was alert, oriented and pleasant. He is being followed by surgery. He had a NG tube placed last night and additional imaging today. Mathew has been accepted to [facility], pending bed availability. CM will continue to support discharge planning needs. A: 66 year old male admitted to [facility] on 07/23/21 for Gastric Volvulus, hiatal hernia with development of acute epigastric abdominal pain P: Mathew is being followed by surgery. Anticipate, he will transfer to a Tertiary Hospital for additional surgical intervention. Surgery is reaching out to [facility] to discuss possible transfer, [facility] [place] He will likely transport via EMS arranged by nursing supervisor cab. CM will continue to support discharge planning needs.
--- NOTE | 2021-07-27 10:00 | DI.RAD_ITS ---
Exam(s) XR ABDOMEN FLAT PLATE EXAM: 2D digital imaging was performed. CLINICAL HISTORY: Gastric outlet obstruction. COMPARISON: CR,XR XR PORTABLE CHEST AP from 07/26/2021 CR RF SMALL BOWEL SERIES from 07/26/2021 TECHNIQUE: Supine views of the abdomen performed. FINDINGS: Nasogastric tube is again positioned in the stomach. The stomach is not fully included on the exam. Small amount of contrast remains present in the stomach. Contrast is seen within the right colon. Small amount of residual contrast is noted in the small bowel. There is no abnormal dilatation. Mid line skin eliana are again noted. IMPRESSION: 1. Administered oral contrast is seen mainly within the right side of the colon. No abnormal small b owel or colonic dilatation. 2. Hiatal hernia with NG tube is in place in the stomach.. DATA REPOSITORY: RADIATION DOSE DELIVERED:
--- NOTE | 2021-07-27 11:15 | DI.RAD_ITS ---
Exam(s) XR PORTABLE CHEST AP EXAM: XR PORTABLE CHEST AP CLINICAL HISTORY: stomach in chest TECHNIQUE: 2D digital imaging was performed. COMPARISON: CR,XR XR PORTABLE CHEST AP from 07/26/2021 FINDINGS: No change in position nasogastric tube, projecting below the diaphragm. Paraesophageal hernia unchanged with air and small amount of residual administered oral contrast. No change small left pleural effusion. Lungs otherwise clear. Small amount of free air remains pres ent beneath the right diaphragm. Old right rib fractures are noted. IMPRESSION: No acute pulmonary findings. No change in position of NG tube and para esophageal hernia. DATA REPOSITORY: RADIATION DOSE DELIVERED:
--- NOTE | 2021-07-27 15:49 | W.NUTCONSULT ---
Date of service: 07/27/21 Time of Service: 15:49 Nutritional Consult ASSESSMENT: 66 year old male admitted 07/23/21 with gastric volvulus. Continues to be NPO x 5 days. Surgeon ordered TPN for nutrition support. To be transfered for surgical repair. PMH: CKD3, hx of ETOH abuse. Weight wnl for age and stable. Estimated Needs: 1772 kcal, 77 g protein, 2300 ml fluid In view of chronic kidney disease and levels, recommend protein intake no more than 1.0-1.1 g/kg =77-84 g protein . Will recommend Clinimix (4.25/10) NUTRITIONAL DIAGNOSIS: Inability to take in food by mouth INTERVENTION: Recommend: TPN Clinimix (4.25/10) 2000 ml run at 83cchour with 200 ml 20% lipid providing total of 1380 kcal (80% caloric needs), 84 g protein (100% protein needs) and 40 g fat (70% of fat needs). standard electrolytes, mvi and trace elements. Will need custom TPN if needed for > 5 days to meet 100% caloric /fat needs. MONITORING AND EVALUATION: 5 Time Spent in Nutritional Counseling and Treatment: 0
--- NOTE | 2021-07-27 21:17 | PGE_ITS ---
Date of Service Date of service: 07/27/21 Time of Service: 21:18 Assessment and Plan Assessment and plan (1) Incarcerated hiatal hernia: Status: Acute Assessment and plan: POD#3 s/p gastropexy for volvuous. Unable to reduce the stomach from the chest. Pt is still having swelling at the diaphragmatic hiatus, the is resulting in decreased rate of emyting from the thoracic portion of the stomach. I did d/w out options w/ Deprauis at [facility]. given his clinically asymptomatic status, and that the barium is slowly moving through, he feels the best course of action is conservative care and to wait and see if the swelling will go done to facilitate emyting. we will cont w/ NGT decompression and place PICC for TPN repeat barium study on Saturday to see any improvement. DVT/GI prophalaxis pulm toilet cont walking NPO 90 minutes spent on care of this pt today (2) Acute gastric volvulus: Status: Acute (3) Chronic kidney disease, stage 4 (severe): Status: Acute (4) Chronic alcoholic pancreatitis: Status: Acute (5) Anemia in chronic kidney disease (CKD): Status: Acute (6) Reflux esophagitis: Status: Chronic (7) Hypertension: Status: Chronic (8) Hyperlipidemia: Status: Chronic (9) Gout: Subjective Subjective Interval history since last seen: Pt is doing well. no headaches. No CP or SOB. no productive cough. no dysuria. no leg pain or swelling. pt has had 400cc out of the NGT in the last 12hrs. He is comfortable and pain is controlled. No fevers/WBC. I did review his xrays today. He does have barium in the colon today. He is passing a few puffs of flatus, no stool. Exam Narrative Exam Narrative: PHYSICAL EXAM GENERAL APPEARANCE: Alert, healthy appearance, oriented, in no acute distress SKIN: No rashes.? No breakdown HYDRATION: Well hydrated HEAD, EYES, EARS, NECK, THROAT: Head is normocephalic, pupils equal, round, reactive to light and accommodation, ocular movement intact, sclera clear and no jaundice. ?Dentition intact. No sore throat.? No jaw pain. No thrush NECK: Supple, Trachea midline. No JVD. LUNGS: normal respiration/nl chest excursion. ?Clear to auscultation B/l no R/R/W ?HEART: Regular rate and rhythm, EXTREMITY: No edema or cyanosis? no leg pain, redness, swelling.? No IV infiltration ABDOMEN: non tender to palpation, +distention no hernias. Normal bowel sounds NEURO: no focal neuro deficits. ? Objective Last Vital Signs Temp 36.5 C 07/27/21 15:43 Pulse 76 07/27/21 19:44 Resp 17 07/27/21 15:43 BP 120/84 07/27/21 16:37 Pulse Ox 94 07/27/21 15:43 Laboratory Results - last 24 hr 07/27/21 06:32 Sodium 139 Potassium 4.1 Chloride 103 Carbon Dioxide 22.8 Anion Gap 13.2 H BUN 30 H Creatinine 2.3 H Estimated GFR/1.73 m2 28.50 Glucose 73 L Calcium 9.2 Magnesium 2.1
[2021-07-27] MEDS: Pantoprazole 40 MG VIAL IVP (21:45)
[2021-07-27] MEDS: Heparin 5,000 UNITS/ML VIAL 5000 UNITS SC (21:45)
[2021-07-27] MEDS: Bisacodyl 10 MG SUPP PR (22:00)
[2021-07-28] VITALS (13 sets, daily range): BP systolic 111–146; BP diastolic 80–88; PULSE 71–103; RESP 16–20; TEMP 36.1–36.6; O2SAT 94–97
[2021-07-28] MEDS: HYDROmorphone 2 MG/ML VIAL 0.5 MG IVP ×6 (04:19→22:40)
[2021-07-28] MEDS: Metoclopramide 10 MG/2 ML VIAL 5 MG IVP ×4 (04:20→21:58)
[2021-07-28] MEDS: Metoprolol 5 MG/5 ML VIAL IVP ×4 (04:21→21:59)
[2021-07-28] MEDS: Normal Saline Flush 10 ML SYR IVP ×9 (04:33→21:55)
[2021-07-28] MEDS: ACETAMINOPHEN 1,000 MG/100 ML BTL 400 MG IVPB ×3 (05:10→21:54)
[2021-07-28 06:43] LABS: HGB 9.8 g/dL (13.5-17.5); MCH 29.7 pg (27.0-33.0); MCHC 32.7 % (32.0-36.0); MCV 90.9 fL (80-95); Platelet Count 193 10^3/uL (130-400); RDW-SD 43.3 fL; WBC 6.17 10^3/uL (4.4-10.8)
[2021-07-28 06:52] LABS: Prothrombin Time 9.8 sec (9.3-11.0)
[2021-07-28 06:54] LABS: Magnesium 2.3 mg/dL (1.8-2.4); PHOSPHORUS 3.1 mg/dL (2.6-4.7)
[2021-07-28 07:09] LABS: ALT 20 U/L (16-63); AST 18 U/L (15-37); Alkaline Phosphatase 74 U/L (46-116); Anion Gap 7.8 mmol/L (3-11); BUN 35 mg/dL (7-18); Bilirubin, Total 0.3 mg/dL (0.2-1.0); CO2 25.2 mmol/L (21.0-32.0); CREATININE 2.3 mg/dL (0.70-1.30); Calcium 8.9 mg/dL (8.5-10.1); Chloride 103 mmol/L (98-107); Glucose 134 mg/dL (74-106); Sodium 136 mmol/L (136-145); Total Protein 6.9 g/dL (6.4-8.2)
--- NOTE | 2021-07-28 08:50 | DI.RAD_ITS ---
Exam(s) XR ABDOMEN FLAT PLATE EXAM: 2D digital imaging was performed. CLINICAL HISTORY: gastric outlet obs. COMPARISON: CR XR ABDOMEN FLAT PLATE from 07/27/2021 TECHNIQUE: Supine views of the abdomen was performed. FINDINGS: LUNG BASES: A paraesophageal hernia is again seen and incompletely imaged. There is a small amount of oral contrast within the hernia. The nasogastric tube is in good position within the stomach. BOWEL GAS PATTERN: Nondistended. Oral contrast is seen throughout the colon. No evidence of bowel obs truction. FREE AIR: None. CALCIFICATIONS: No radiopaque calcifications. OSSEOUS STRUCTURES: Normal for age. OTHER FINDINGS: Skin eliana are again seen in the midline of the abdomen. IMPRESSION: No evidence of bowel obstruction. DATA REPOSITORY: RADIATION DOSE DELIVERED:
--- NOTE | 2021-07-28 08:53 | CMPROGNOTE_ITS ---
- If Service Date Differs Date of service: 07/28/21 Time of Service: 08:53 Care Management Progress Note S/O: Mathew is alert, oriented and easy to engage in conversation. His pain is being controlled by IV hydromorphone. Surgery discussed Mathew's condition with [facility]. He will receive conservative care to monitor for gastric emptying over the weekend with a repeat barium study on Saturday. Mathew's oral meds are on hold, while NPO. His PICC line and NG tube are being closely monitored. A: 66 year old male admitted to [facility] on 07/23/21 for Gastric Volvulus, hiatal hernia with development of acute epigastric abdominal pain P: Mathew is being followed by surgery. Anticipate, Mathew will transfer to a Tertiary Hospital for additional surgical intervention vs home with new [facility] services (if indicated). Transportation will be dependent on disposition. CM will continue to support discharge planning needs.
--- NOTE | 2021-07-28 08:58 | DI.RAD_ITS ---
Exam(s) XR CHEST 1V IN DI DEPT EXAM: XR CHEST 1V IN DI DEPT CLINICAL HISTORY: gastric outlet obs TECHNIQUE: 2D digital imaging was performed of the chest. One image was obtained. An AP view was ob tained. COMPARISON: CR XR PORTABLE CHEST AP from 07/27/2021 FINDINGS: MEDIASTINUM: There is a persistent paraesophageal hernia. There is a tiny residual amount of oral co ntrast within the hernia. The nasogastric tube tip is in stable position below the hemidiaphragm. HEART: Normal. PULMONARY VASCULATURE: Normal. LUNGS: Clear. PLEURAL SPACE: Persistent small left pleural effusion. No right pleural effusion. No pneumothorax. BONE:Within normal limits for the patient's age. Old right rib fracture deformities are again noted. OTHER FINDINGS:The tip of the right PICC line is in good position at the junction of the superior VC cava and right atrium. IMPRESSION: 1. No acute change in appearance of the chest x-ray. 2. NG tube and right PICC line are in good position. DATA REPOSITORY: RADIATION DOSE DELIVERED:
[2021-07-28] MEDS: Heparin 5,000 UNITS/ML VIAL 5000 UNITS SC ×2 (09:55→21:59)
--- NOTE | 2021-07-28 12:43 | PHACLINREV_ITS ---
Pharmacy Admission Review - Admission Clinical Review (Last Updated 06/14/21 @ 10:38 by Jorge Chauhan MD) Low O2 saturation (Acute) Hypermagnesemia (Acute) Incarcerated hiatal hernia (Acute) Acute gastric volvulus (Acute) Chronic kidney disease, stage 4 (severe) (Acute) Leg edema, right (Acute) Chronic alcoholic pancreatitis (Acute) Acute on chronic renal insufficiency (Acute) Anemia in chronic kidney disease (CKD) (Acute) morphine Allergy (Intermediate, Verified 07/23/21 17:35) HIVES/RASH Resuscitation Status Full Code Height 5 ft 6 in Weight 77.6 kg Gastric Volvulus, TPN, NGtube - Comments Comments/Follow Ups: s/p gastropexy for volvous, conservative care to monitor gastric emptying, repeat barium test on Saturday. Oral scheduled meds on hold at this time, TPN initiated 07/27/21 - Renal Dosing Renal Dosing: BUN 35 mg/dL (7-18) H 07/28/21 06:25 Creatinine 2.3 mg/dL (0.70-1.30) H 07/28/21 06:25 SCr 2.3, CrCl~28ml/min - Anticoagulation Anticoagulation: Hgb 9.8 g/dL (13.5-17.5) L 07/28/21 06:20 Hct 30.0 % (40.0-50.0) L 07/28/21 06:20 Plt Count 193 10^3/uL (130-400) 07/28/21 06:20 INR 1.0 (0.9-1.1) 07/28/21 06:20 Creatinine 2.3 mg/dL (0.70-1.30) H 07/28/21 06:25 DVT Prophylaxis: Reviewed Medications: Heparin - Opiate Usage Evaluate Pain Scale/Pains Meds: Reviewed (Hydromorphone inj for pain level 5- 6/10) - Relevant Labs Sodium 136 mmol/L (136-145) 07/28/21 06:25 Potassium 4.0 mmol/L (3.5-5.1) 07/28/21 06:25 Chloride 103 mmol/L (98-107) 07/28/21 06:25 Phosphorus 3.1 mg/dL (2.6-4.7) 07/28/21 06:20 Magnesium 2.3 mg/dL (1.8-2.4) 07/28/21 06:20 Electrolytes, C-Reactive P, ESR: Reviewed - DM Control DM Control: Glucose 134 mg/dL (74-106) H 07/28/21 06:25 Finger Stick Blood Glucose 145 Finger Stick Blood Glucose 145 Finger Stick Blood Glucose 146 Finger Stick Blood Glucose 146 Insulin Dosing: Reviewed (No insulin ordered at this time with TPN....will monitor if needs to be initiated) - Heart Failure/LA Heart Failure/LA: Troponin I < 50 ng/L (<or=60) 07/23/21 21:08 EF%, KATE's, B-Blockers, Diuretics: Reviewed (Amlodipine, Lisinopril, Torprol on hold-BP's good, has IV Metoprolol for coverage if needed and scheduled Enalaprilat IVP) - BP Control BP Control: Blood Pressure 124/85 Blood Pressure 111/80 Blood Pressure 124/84 Blood Pressure 133/86 Blood Pressure 130/85 If elevated: Reviewed (Has scheduled Enalaprilate and prn Metoprolol if needed for BP control while NPO) - Qtc Review If Elevated: Reviewed (QTC 427) - IV to PO Switch IV Medications: Reviewed (NPO at this time, also IV Protonix) - Home Meds Home Med List reviewed: Reviewed (Creon not ordered-rashawn, NPO) - Current meds Current Medication Order Review: Reviewed
--- NOTE | 2021-07-28 17:03 | CHAPLAIN ---
Mathew was up in his chair then I visited. He is very pleasant and easily engages in a conversation. 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 He talked openly about attending AA and how the 12-step program has helped him. He expects is sponsor to visit today. Family members have been visiting as well. Mathew has an NG tube and so hasn't been able to eat or drink for several days. He said he isn't hungry anymore but would really like a glass of water.
--- NOTE | 2021-07-28 18:24 | W.PM.PROGNOT ---
Date of Service Date of service: 07/28/21 Time of Service: 17:24 Assessment and Plan Assessment and plan (1) Incarcerated hiatal hernia: Status: Acute Assessment and plan: Pt is stable s/p laparatomy for mesoaxial gastric volvulus with gastropexy. The stomach could not be fully reduced back into the intra-abdominal compartment due to scarring, and there is still a significant intra-thoracic component that is draining slowly. This is likely due to persistent post-operative inflammation at the diaphragmatic crux. --maintain NGT --plan for repeat barium swallow on 07/31 --continue NPO --TPN --OOB and ambulate --DVT, GI prophylaxis (2) Chronic kidney disease: Status: Chronic Assessment and plan: TPN adjusted for CKD, appreciate pharmacy/nutrition consult input (3) Acute gastric volvulus: Status: Acute (4) Chronic alcoholic pancreatitis: Status: Acute (5) Acute on chronic renal insufficiency: Status: Acute (6) Anemia in chronic kidney disease (CKD): Status: Acute (7) Hypertension: Status: Chronic (8) Hyperlipidemia: Status: Chronic Subjective Subjective Patient reports: no new complaints and voiding w/o difficulty; denies shortness of breath Interval history since last seen: Pt seen with Dr. Dawson, and family members at bedside. He has no new complaints. Has been ambulating. Denies new pain, SOB, chest pain. Exam Const General: cooperative, comfortable, no acute distress and well developed Orientation: alert, awake, oriented x3, oriented to person, oriented to place and oriented to time [facility] General nose exam: other (NGT in place, draining non-bilious gastrc contents) Neck Neck: trachea midline and supple Resp Effort & Inspection: able to speak in complete sentences, no grunting, not labored, not tachypneic and no tripod positioning Skin General skin exam: no rashes or lesions noted and dry skin Neuro General: patient alert, patient awake and patient oriented x3 Cognition: normal cognition Speech: speech normal Psych Mental Status: mental status grossly normal Mood: congruent mood Affect: normal affect Attitude: cooperative Insight: insight good Judgment: judgment good Objective Last Vital Signs Temp 97.5 F L 07/28/21 15:10 Pulse 80 07/28/21 16:13 Resp 18 07/28/21 15:10 BP 126/88 07/28/21 16:13 Pulse Ox 97 07/28/21 15:10 Laboratory Results - last 24 hr 07/28/21 07/28/21 07/28/21 05:35 06:20 06:20 WBC 6.17 RBC 3.30 L Hgb 9.8 L Hct 30.0 L MCV 90.9 MCH 29.7 MCHC 32.7 RDW 13.0 Plt Count 193 MPV 11.0 PT INR Sodium Cancelled Potassium Cancelled Chloride Cancelled Carbon Dioxide Cancelled Anion Gap Cancelled BUN Cancelled Creatinine Cancelled Estimated GFR/1.73 m2 Cancelled Glucose Cancelled Calcium Cancelled Phosphorus 3.1 Magnesium 2.3 Total Bilirubin AST ALT Alkaline Phosphatase Total Protein Albumin 07/28/21 07/28/21 06:20 06:25 WBC RBC Hgb Hct MCV MCH MCHC RDW Plt Count MPV PT 9.8 INR 1.0 Sodium 136 Potassium 4.0 Chloride 103 Carbon Dioxide 25.2 Anion Gap 7.8 BUN 35 H Creatinine 2.3 H Estimated GFR/1.73 m2 28.50 Glucose 134 H Calcium 8.9 Phosphorus Magnesium Total Bilirubin 0.3 AST 18 ALT 20 Alkaline Phosphatase 74 Total Protein 6.9 Albumin 3.0 L Reviewed Pertinent PMH: Yes
[2021-07-28] MEDS: Pantoprazole 40 MG VIAL IVP (21:58)
[2021-07-29] VITALS (18 sets, daily range): BP systolic 113–146; BP diastolic 72–93; PULSE 65–97; RESP 14–18; TEMP 36.3–36.9; O2SAT 94–99
[2021-07-29] MEDS: Normal Saline Flush 10 ML SYR IVP ×7 (04:53→22:28)
[2021-07-29] MEDS: Metoclopramide 10 MG/2 ML VIAL 5 MG IVP ×4 (04:53→22:07)
[2021-07-29] MEDS: Metoprolol 5 MG/5 ML VIAL IVP ×4 (04:53→22:06)
[2021-07-29] MEDS: ACETAMINOPHEN 1,000 MG/100 ML BTL 400 MG IVPB ×3 (05:00→22:05)
[2021-07-29] MEDS: HYDROmorphone 2 MG/ML VIAL 0.5 MG IVP ×3 (06:12→19:50)
[2021-07-29 06:51] LABS: HGB 8.4 g/dL (13.5-17.5); MCH 30.1 pg (27.0-33.0); MCV 103.9 fL (80-95); MPV 11.6 fL (8.0-11.0); Platelet Count 176 10^3/uL (130-400); RBC 2.79 10^6/uL (4.36-5.78); RDW 13.3 % (11.8-14.1); RDW-SD 50.8 fL; WBC 7.29 10^3/uL (4.4-10.8)
--- NOTE | 2021-07-29 07:17 | DI.VRAD_ITS ---
PROCEDURE INFORMATION: Exam: XR Chest Exam date and time: 07/29/2021 12:00 AM Age: 66 years old Clinical indication: Other: Gastric outlet obstruction TECHNIQUE: Imaging protocol: XR of the chest. Views: 1 view. COMPARISON: CR XR CHEST 1V IN DI DEPT 07/28/2021 8:47 AM FINDINGS: Tubes, catheters and devices: An enteric tube is again seen which courses below the left hemidiaphragm with its tip projecting over the body of the stomach. There is a right upper extremity PICC in place with its tip projecting over the central superior vena cava. Lungs: Unremarkable. No consolidation or pulmonary edema. Pleural spaces: Unremarkable. No pleural effusion or pneumothorax. Heart/Mediastinum: Stable cardiomediastinal contours. Heart size is within normal limits. Bones/joints: Unremarkable. Gastrointestinal tract: Again noted is a large paraesophageal hernia which contains a small amount of retained enteric contrast. IMPRESSION: 1. No active disease in the chest. Tube and line as described above. 2. Large hiatal hernia. Dictated and Authenticated by: Khloe Tabor MD. Ordering:FELIBERTO An MD
[2021-07-29 07:52] LABS: Anion Gap 8.3 mmol/L (3-11); BUN 43 mg/dL (7-18); CO2 24.7 mmol/L (21.0-32.0); CREATININE 2.5 mg/dL (0.70-1.30); Calcium 8.7 mg/dL (8.5-10.1); Chloride 103 mmol/L (98-107); Estimated GFR 25.89 (mL/min/1.73m2); Glucose 109 mg/dL (74-106); Magnesium 2.3 mg/dL (1.8-2.4); Potassium 4.2 mmol/L (3.5-5.1); Sodium 136 mmol/L (136-145)
--- NOTE | 2021-07-29 08:30 | DI.RAD_ITS ---
Exam(s) XR PORTABLE CHEST AP EXAM: XR PORTABLE CHEST AP CLINICAL HISTORY: gastric outlet obs TECHNIQUE: COMPARISON: CR XR CHEST 1V IN DI DEPT from 07/28/2021 FINDINGS: Note is again made of an NG tube in place. There is also an apparent PICC line, unchanged in positio n. Lungs are grossly clear and well expanded. Minimal contrast material noted in gastric fundus in the previously noted hernia. No change from prior examination of July 28. IMPRESSION: RADIATION DOSE DELIVERED: Total DLP
[2021-07-29] MEDS: Heparin 5,000 UNITS/ML VIAL 5000 UNITS SC ×2 (11:06→22:05)
--- NOTE | 2021-07-29 16:38 | PGE_ITS ---
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 The stomach could not be fully reduced back into the intra-abdominal compartment due to scarring, and there is still a significant intra-thoracic component that is draining slowly. This is likely due to persistent post-operative inflammation at the diaphragmatic crux. --maintain NGT --plan for repeat barium swallow on 07/31 --continue NPO --TPN --OOB and ambulate --DVT, GI prophylaxis (2) Chronic kidney disease: Status: Chronic Assessment and plan: --TPN adjusted for CKD, appreciate pharmacy/nutrition consult input --daily labs (3) Acute gastric volvulus: Status: Acute (4) Chronic alcoholic pancreatitis: Status: Acute (5) Acute on chronic renal insufficiency: Status: Acute (6) Anemia in chronic kidney disease (CKD): Status: Acute (7) Hypertension: Status: Chronic (8) Hyperlipidemia: Status: Chronic Subjective Subjective Patient reports: no new complaints, flatus and afebrile; denies still having pain, bowel movement, nausea, vomiting or shortness of breath Interval history since last seen: still with some upper abdominal discomfort ~4 hours between doses of pain meds Exam Const General: cooperative, healthy appearing, comfortable and no acute distress Nutritional Appearance: average body habitus Orientation: alert, awake and oriented x3 [facility] General nose exam: other (NGT to left nare, draing clear gastric contents) Neck Neck: trachea midline and supple Resp Effort & Inspection: normal respiratory effort and able to speak in complete sentences Auscultation: clear to auscultation bilaterally Cardio Rate: regular rate Rhythm: regular rhythm Heart Sounds: S1 normal GI Inspection: other (PICOS dressing toupper abdomen; scant drainage) Palpation: soft and nontender Auscultation: hypoactive bowel sounds Skin General skin exam: no rashes or lesions noted Neuro General: patient alert, patient awake and patient oriented x3 Cognition: normal cognition Speech: speech normal Extrem General: no clubbing, cyanosis or edema and no calf tenderness Other: PICC site clean, without erythema, to RUE Psych Appearance: grossly normal Mental Status: mental status grossly normal Mood: congruent mood Affect: normal affect Attitude: cooperative Insight: insight good Judgment: judgment good Objective Last Vital Signs Temp 98.1 F 07/29/21 15:32 Pulse 78 07/29/21 15:57 Resp 16 07/29/21 15:32 BP 138/91 H 07/29/21 15:57 Pulse Ox 96 07/29/21 15:32 Laboratory Results - last 24 hr 07/29/21 07/29/21 07/29/21 06:15 06:15 07:26 WBC 7.29 RBC 2.79 L Hgb 8.4 L Hct 29.0 L MCV 103.9 H D MCH 30.1 MCHC 29.0 L RDW 13.3 Plt Count 176 MPV 11.6 H Sodium Cancelled 136 Potassium Cancelled 4.2 Chloride Cancelled 103 Carbon Dioxide Cancelled 24.7 Anion Gap Cancelled 8.3 BUN Cancelled 43 H Creatinine Cancelled 2.5 H Estimated GFR/1.73 m2 Cancelled 25.89 Glucose Cancelled 109 H Calcium Cancelled 8.7 Phosphorus Cancelled 3.0 Magnesium Cancelled 2.3
[2021-07-29] MEDS: Pantoprazole 40 MG VIAL IVP (22:05)
[2021-07-30] VITALS (16 sets, daily range): BP systolic 115–150; BP diastolic 74–90; PULSE 53–96; RESP 16–20; TEMP 36.3–36.8; O2SAT 94–98
[2021-07-30] MEDS: HYDROmorphone 2 MG/ML VIAL 0.5 MG IVP ×6 (02:44→23:42)
[2021-07-30] MEDS: Normal Saline Flush 10 ML SYR IVP ×9 (04:31→23:43)
[2021-07-30] MEDS: Metoclopramide 10 MG/2 ML VIAL 5 MG IVP ×4 (04:31→21:50)
[2021-07-30] MEDS: ACETAMINOPHEN 1,000 MG/100 ML BTL 100 MG IVPB (06:05)
[2021-07-30 06:57] LABS: Anion Gap 9.9 mmol/L (3-11); BUN 46 mg/dL (7-18); CO2 23.1 mmol/L (21.0-32.0); CREATININE 2.3 mg/dL (0.70-1.30); Calcium 8.7 mg/dL (8.5-10.1); Chloride 103 mmol/L (98-107); Glucose 115 mg/dL (74-106); Magnesium 2.2 mg/dL (1.8-2.4); Potassium 3.9 mmol/L (3.5-5.1); Sodium 136 mmol/L (136-145)
[2021-07-30 08:15] LABS: HCT 28.4 % (40.0-50.0); HGB 9.2 g/dL (13.5-17.5); MCH 30.3 pg (27.0-33.0); MCHC 32.4 % (32.0-36.0); MCV 93.4 fL (80-95); MPV 11.6 fL (8.0-11.0); Platelet Count 184 10^3/uL (130-400); RBC 3.04 10^6/uL (4.36-5.78); RDW 13.2 % (11.8-14.1); RDW-SD 44.8 fL; WBC 6.47 10^3/uL (4.4-10.8)
--- NOTE | 2021-07-30 08:30 | DI.RAD_ITS ---
Exam(s) XR PORTABLE CHEST AP EXAM: XR PORTABLE CHEST AP CLINICAL HISTORY: gastric outlet obs TECHNIQUE: COMPARISON: CR,XR XR PORTABLE CHEST AP from 07/29/2021 FINDINGS: Portable upright chest at 0905 hours. Note is again made of the very large hiatal hernia containing the stomach. The contrast material previously noted in the stomach on examination of July 29 is no longer visible except for very tiny flecks. NG tube is again noted in position. Lungs are grossly clear and well expanded. IMPRESSION: RADIATION DOSE DELIVERED: Total DLP
--- NOTE | 2021-07-30 09:10 | DI.VRAD_ITS ---
PROCEDURE INFORMATION: Exam: XR Chest Exam date and time: 07/30/2021 12:00 AM Age: 66 years old Clinical indication: Other: Gastric outlet obs TECHNIQUE: Imaging protocol: XR of the chest. Views: 1 view. COMPARISON: XR PORTABLE CHEST AP 07/29/2021 6:43 AM FINDINGS: Tubes, catheters and devices: A nasogastric tube is present with its tip projecting over the body of the stomach. There is a right upper extremity PICC in place with its tip projecting over the central superior vena cava. Lungs: Unremarkable. No consolidation or pulmonary edema. Pleural spaces: Unremarkable. No pleural effusion or pneumothorax. Heart/Mediastinum: Stable cardiomediastinal contours, again noting a large paraesophageal hernia. Heart size is within normal limits. Bones/joints: Multiple old healed posterolateral right rib fractures. No acute osseous abnormality. IMPRESSION: 1. No active disease in the chest. 2. Tube and line as described above. 3. Large hiatal hernia. Dictated and Authenticated by: Khloe Tabor MD. Ordering:FELIBERTO An MD
[2021-07-30] MEDS: Metoprolol 5 MG/5 ML VIAL IVP ×3 (09:15→21:58)
[2021-07-30] MEDS: Heparin 5,000 UNITS/ML VIAL 5000 UNITS SC ×2 (09:18→22:00)
--- NOTE | 2021-07-30 14:17 | PGE_ITS ---
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 The stomach could not be fully reduced back into the intra-abdominal compartment due to scarring, and there is still a significant intra-thoracic component. I did not observe any persistent intra-gastric contrast on the CXR today, hopefully reflecting relaxation/decreased swelling between the supra- and infra- diaphragmatic portions of the stomach --maintain NGT --plan for repeat barium swallow on 07/31 --continue NPO --TPN --OOB and ambulate --DVT, GI prophylaxis (2) Chronic kidney disease: Status: Chronic Assessment and plan: --TPN adjusted for CKD, appreciate pharmacy/nutrition consult input --daily labs (3) Acute gastric volvulus: Status: Acute (4) Chronic alcoholic pancreatitis: Status: Acute (5) Acute on chronic renal insufficiency: Status: Acute (6) Anemia in chronic kidney disease (CKD): Status: Acute (7) Hypertension: Status: Chronic (8) Hyperlipidemia: Status: Chronic Subjective Subjective Patient reports: feels better, pain is less, flatus, no bowel movement and afebrile; denies nausea or shortness of breath Exam Const General: cooperative, comfortable and no acute distress Nutritional Appearance: average body habitus Orientation: alert, awake and oriented x3 Neck Other: NGT in left nare, draining clear gastric contents Resp Effort & Inspection: normal respiratory effort and able to speak in complete sentences Auscultation: clear to auscultation bilaterally Cardio Rate: regular rate Rhythm: regular rhythm Heart Sounds: S1 normal and S2 normal GI Palpation: soft and nontender Other: PICOS dressing intact to upper midline; hypoactive bowel sounds, but more than yesterday Neuro General: patient alert, patient awake and patient oriented x3 Cognition: normal cognition Speech: speech normal Extrem General: no clubbing, cyanosis or edema and no calf tenderness Other: PICC site clean to RUE Psych Mental Status: mental status grossly normal Mood: congruent mood Affect: normal affect Thought Process: normal Insight: insight good Judgment: judgment good Objective Last Vital Signs Temp 97.9 F 07/30/21 11:42 Pulse 75 07/30/21 11:42 Resp 16 07/30/21 11:42 BP 115/74 07/30/21 11:42 Pulse Ox 98 07/30/21 11:42 Laboratory Results - last 24 hr 07/30/21 07/30/21 06:10 06:10 WBC 6.47 RBC 3.04 L Hgb 9.2 L Hct 28.4 L MCV 93.4 D MCH 30.3 MCHC 32.4 RDW 13.2 Plt Count 184 MPV 11.6 H Sodium 136 Potassium 3.9 Chloride 103 Carbon Dioxide 23.1 Anion Gap 9.9 BUN 46 H Creatinine 2.3 H Estimated GFR/1.73 m2 28.50 Glucose 115 H Calcium 8.7 Phosphorus 3.0 Magnesium 2.2 Objective Narrative Objective Narrative: CXR (07/30/2021): FINDINGS: Tubes, catheters and devices: A nasogastric tube is present with its tip projecting over the body of the stomach. There is a right upper extremity PICC in place with its tip projecting over the central superior vena cava. Lungs: Unremarkable. No consolidation or pulmonary edema. Pleural spaces: Unremarkable. No pleural effusion or pneumothorax. Heart/Mediastinum: Stable cardiomediastinal contours, again noting a large paraesophageal hernia. Heart size is within normal limits. Bones/joints: Multiple old healed posterolateral right rib fractures. No acute osseous abnormality. IMPRESSION: 1. No active disease in the chest. 2. Tube and line as described above. 3. Large hiatal hernia.
[2021-07-30] MEDS: ACETAMINOPHEN 1,000 MG/100 ML BTL 400 MG IVPB ×2 (14:28→21:42)
[2021-07-30] MEDS: Normal Saline 500 ML 100 ML IV (14:28)
[2021-07-30] MEDS: Pantoprazole 40 MG VIAL IVP (22:00)
[2021-07-31] VITALS (11 sets, daily range): BP systolic 106–132; BP diastolic 71–87; PULSE 62–83; RESP 16–18; TEMP 36.2–36.6; O2SAT 94–99
--- NOTE | 2021-07-31 | DI.RAD_ITS ---
Exam(s) RF SMALL BOWEL SERIES EXAM: RF SMALL BOWEL SERIES CLINICAL HISTORY: ? obstruction TECHNIQUE: 2D digital imaging was performed. CONTRAST MATERIAL: Oral barium contrast was administered. COMPARISON: CR RF SMALL BOWEL SERIES from 07/26/2021 CR XR ABDOMEN FLAT PLATE from 07/28/2021 FINDINGS: Shrink Pit Operator view of the abdomen shows the nasogastric tube below the diaphragm, unchanged in position. Mid line skin eliana are seen. There is residual contrast in the colon from the prior exam. 30 minutes film shows oral contrast opacify near the majority of the small bowel. There is significa nt residual contrast within the stomach. Additional films were performed at 60 minutes and tuna 1/2 hours. The 4 hour film shows progression of the contrast in the small bowel into the colon. There are no di lated small bowel loops. There is significant residual contrast within the stomach on the 4 hour image. A paraesophageal her betty is again noted. IMPRESSION: Parasagittal hernia with partial obstruction of the duodenum at the level of the diaphragm with impro vement when compared with previous exam. RADIATION DOSE DELIVERED: vidal Tapia= mGy
[2021-07-31] MEDS: Metoclopramide 10 MG/2 ML VIAL 5 MG IVP ×3 (04:17→16:43)
[2021-07-31] MEDS: Metoprolol 5 MG/5 ML VIAL IVP ×3 (04:18→16:42)
[2021-07-31] MEDS: Normal Saline Flush 10 ML SYR IVP ×6 (04:25→16:52)
[2021-07-31] MEDS: HYDROmorphone 2 MG/ML VIAL 0.5 MG IVP ×3 (04:59→16:52)
[2021-07-31] MEDS: ACETAMINOPHEN 1,000 MG/100 ML BTL 400 MG IVPB ×2 (05:29→15:06)
[2021-07-31 07:12] LABS: HCT 28.7 % (40.0-50.0); HGB 9.3 g/dL (13.5-17.5); MCH 30.2 pg (27.0-33.0); MCHC 32.4 % (32.0-36.0); MCV 93.2 fL (80-95); MPV 11.6 fL (8.0-11.0); Platelet Count 185 10^3/uL (130-400); RBC 3.08 10^6/uL (4.36-5.78); RDW 13.2 % (11.8-14.1); RDW-SD 44.7 fL; WBC 6.76 10^3/uL (4.4-10.8)
[2021-07-31 07:39] LABS: Anion Gap 10.5 mmol/L (3-11); CO2 22.5 mmol/L (21.0-32.0); CREATININE 2.5 mg/dL (0.70-1.30); Chloride 102 mmol/L (98-107); Estimated GFR 25.89 (mL/min/1.73m2); Glucose 105 mg/dL (74-106); Magnesium 2.3 mg/dL (1.8-2.4); PHOSPHORUS 3.8 mg/dL (2.6-4.7); Potassium 4.2 mmol/L (3.5-5.1); Sodium 135 mmol/L (136-145)
[2021-07-31 07:41] LABS: BUN 58 mg/dL (7-18)
--- NOTE | 2021-07-31 09:37 | PGE_ITS ---
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 The stomach could not be fully reduced back into the intra-abdominal compartment due to scarring, and there is still a significant intra-thoracic component. I did not observe any persistent intra-gastric contrast on the CXR today, hopefully reflecting relaxation/decreased swelling between the supra- and infra- diaphragmatic portions of the stomach --maintain NGT --plan for small bowel follow through later today. --continue NPO --TPN --OOB and encouraged to continue with ambulation. --DVT, GI prophylaxis (2) Chronic kidney disease: Status: Chronic Assessment and plan: --TPN adjusted for CKD, appreciate pharmacy/nutrition consult input --daily labs (3) Acute gastric volvulus: Status: Acute (4) Chronic alcoholic pancreatitis: Status: Acute (5) Acute on chronic renal insufficiency: Status: Acute (6) Anemia in chronic kidney disease (CKD): Status: Acute (7) Hypertension: Status: Chronic (8) Hyperlipidemia: Status: Chronic Subjective Subjective Interval history since last seen: Patient ambulating in the hallway. Denies having any pain, SOB, fevers or chills. He expressed that he is eager to have results of today's imaging to have a better understanding of the plan moving forward. Exam Const General: cooperative, healthy appearing and comfortable Orientation: alert and oriented x3 Resp Effort & Inspection: normal respiratory effort, no audible wheezes and no cough Objective Last Vital Signs Temp 36.4 C L 07/31/21 07:52 Pulse 70 07/31/21 07:52 Resp 16 07/31/21 07:52 BP 132/87 07/31/21 07:52 Pulse Ox 97 07/31/21 07:52 Laboratory Results - last 24 hr 07/31/21 07/31/21 07/31/21 05:25 06:35 06:35 WBC 6.76 RBC 3.08 L Hgb 9.3 L Hct 28.7 L MCV 93.2 MCH 30.2 MCHC 32.4 RDW 13.2 Plt Count 185 MPV 11.6 H Sodium 135 L Potassium 4.2 Chloride 102 Carbon Dioxide 22.5 Anion Gap 10.5 BUN 58 H D Creatinine 2.5 H Estimated GFR/1.73 m2 25.89 Glucose 105 Calcium 9.0 Phosphorus Cancelled 3.8 Magnesium 2.3
--- NOTE | 2021-07-31 09:46 | W.NUTRFU ---
Date of service: 07/31/21 Time of Service: 09:46 Nutrition Note NOTE: Elevations noted in BUN/Cre since starting TPN on 07/28/21. Of concern in view of CKD4. TPN order provides: 1380 kcal, 84 g protein, 40 g fat. Current TPN provides 1.1g pro/kg- should be cleared but may need lower amount of protein or increased fluid. Custom TPN not option at this time due to lack of macronutrients. May need to hang only 1 bag daily if BUN/cre doesn't improve with increased fluid administered. Recommend increase lipids to 60 g daily (recommended to have 0.5-1.0 g fat/kg)- will need 3 bags of 100 ml 20% lipids run daily. Plan: 1. consider adding IV fluids to lower BUN/Cre levels 2. if additional fluids don't improve renal function, decrease protein intake via TPN by administering only 1 bag daily of Clinimix (10/08)- that would provide 50 g protein daily ( 0.65 g pro/kg) 3. recommend increase lipid amount to 60 grams 4. Prealbumin at next blood draw Request daily weights. Last weight 07/24/21 Time Spent in Nutritional Counseling and Treatment: 5
--- NOTE | 2021-07-31 09:52 | CMPROGNOTE_ITS ---
- If Service Date Differs Date of service: 07/31/21 Time of Service: 09:52 Care Management Progress Note S/O: Mathew is being closely followed by surgery. He had a repeat barium study today and those images were forwarded to Dr. De León at [facility]. A: 66 year old male admitted to [facility] on 07/23/21 for Gastric Volvulus, hiatal hernia with development of acute epigastric abdominal pain P: Mathew is being followed by surgery. Anticipate, Mathew will transfer to a [facility] for additional surgical intervention vs home with new [facility] services (if indicated). Transportation will be dependent on disposition. CM will continue to support discharge planning needs.
[2021-07-31] MEDS: Heparin 5,000 UNITS/ML VIAL 5000 UNITS SC (11:22)
[2021-07-31 12:38] LABS: ALT 33 U/L (16-63); AST 22 U/L (15-37); Albumin 3.4 g/dL (3.4-5.0); Alkaline Phosphatase 82 U/L (46-116); Anion Gap 11.9 mmol/L (3-11); BUN 55 mg/dL (7-18); Bilirubin, Total 0.2 mg/dL (0.2-1.0); CO2 21.1 mmol/L (21.0-32.0); CREATININE 2.5 mg/dL (0.70-1.30); Chloride 101 mmol/L (98-107); Estimated GFR 25.89 (mL/min/1.73m2); Glucose 125 mg/dL (74-106); Potassium 4.1 mmol/L (3.5-5.1); Sodium 134 mmol/L (136-145); Total Protein 7.4 g/dL (6.4-8.2)
[2021-07-31 12:41] LABS: Prothrombin Time 9.6 sec (9.3-11.0)
--- NOTE | 2021-07-31 16:32 | DSE_ITS ---
Date of service: 07/31/21 Time of Service: 16:32 DS: Diagnosis Discharge Diagnosis (1) Chronic kidney disease: Status: Chronic (2) Acute gastric volvulus: Status: Acute (3) Chronic alcoholic pancreatitis: Status: Acute (4) Acute on chronic renal insufficiency: Status: Acute (5) Anemia in chronic kidney disease (CKD): Status: Acute (6) Hypertension: Status: Chronic (7) Hyperlipidemia: Status: Chronic (8) Paraesophageal hernia with obstruction but no gangrene: Status: Acute Discharge Plan Disposition Patient Disposition: JACOBO VERMA ([facility]) Condition: Stable Discharge Details Reason For Visit: Gastric Volvulus/incarcerated Paraesophageal Herni Admit Date/Time: 07/23/21 22:57 Admit Provider: Waleska Sesay Attending Provider: Hortencia Tyler Primary Care Provider: Jorge Chauhan Hospital Course Hospital Course: Mr. Mendez is a pleasant 66 year old male who developed acute epigastric abdominal pain on 07/23/21. He was seen in the ER and CT scan of the abdomen showed a gastric volvulous and paraesophageal hernia. Dr. Wadsworth ([facility] Surgeon) took the patient to the OR to reduce as much of the stomach as possible and untwist it. She then gastropexid the stomach. Unfortunately the patient then developed outlet obstruction. An NG tube was placed and his stomach was decompressed. He did have some low sats until the stomach was decompressed. He has not been on Oxygen since then. Patient had a PICC line placed and was started on TPN. Barium study was done and showed very slow drainage of the barium. MOst of the barium was suctioned out. He was decompressed for 3 more days. A second Barium study was done which showed no improvement. Spoke With Dr. Guidry who kindly has accepted the patient in transfer. TPN will be stopped for transfer and he will be started on D5 1/2 normal saline. Please see the MAR for inpatient medications Home Meds and New Rx's Prescriptions: No Action vitamin B complex [B Complex-Vitamin B12] Tablet 1 tab PO DAILY 0RF Creon 6,000-19,000 -30,000 unit capsule,delayed release(DR/EC) 1 cap PO TID Qty: 90 6RF Rx Instructions: take 15 minutes before meal naltrexone 50 mg tablet 50 mg PO DAILY Qty: 90 3RF metoprolol succinate 100 mg tablet extended release 24 hr 100 mg PO DAILY Qty: 90 3RF lisinopril 5 mg tablet 5 mg PO DAILY Qty: 90 3RF amlodipine 10 mg tablet 10 mg PO DAILY Qty: 90 3RF allopurinol 100 mg tablet 100 mg PO DAILY Qty: 90 3RF omeprazole 40 mg capsule,delayed release(DR/EC) 40 mg PO DAILY Qty: 90 3RF Discharge Orders Discharge Orders: Discharge Order (Routine); Ordered 07/31/21 Ordered By: Hortencia Tyler DS: Summary Time Spent with Patient providing and/or coordinating discharge services: Greater than 30 minutes Status at Discharge Functional status at discharge: independent ambulation Overall status at discharge: patient is back to baseline Mental Status: mental status grossly normal Speech and Movement: speech and movement normal Mood: congruent mood Affect: normal affect Exam Resp Effort & Inspection: normal respiratory effort Auscultation: clear to auscultation bilaterally and diminished lung sounds on the left in the lower lung lal Cardio Rate: regular rate Rhythm: regular rhythm Heart Sounds: no gallops, no murmurs and no rubs GI Inspection: normal to inspection Palpation: soft, no hepatosplenomegaly and nontender Auscultation: hypoactive bowel sounds Psych Mental Status: mental status grossly normal Speech and Movement: speech and movement normal Mood: congruent mood Affect: normal affect DS: Data Vitals/I&O Vitals and I&O: Vital Signs Temperature 97.5 F L 07/31/21 15:41 Temperature Source Tympanic 07/31/21 15:41 Pulse 73 07/31/21 15:41 Pulse Rhythm Regular 07/31/21 08:45 Pulse 69 07/24/21 18:01 Respiratory Rate 18 07/31/21 15:41 Respiratory Effort 07/31/21 08:45 Respiratory Depth Normal 07/31/21 08:45 Respiratory Pattern Normal 07/31/21 08:45 Blood Pressure 132/84 07/31/21 15:41 Blood Pressure Mean 103 07/24/21 18:00 Blood Pressure Position Sitting 07/24/21 15:30 Pulse Oximetry 98 07/31/21 15:41 Oxygen Delivery Method Room Air 07/31/21 15:41 Oxygen Flow Rate 0 07/31/21 15:41 Pain Level 0 07/31/21 12:24 Comment 07/28/21 10:53 Intake & Output 07/30/21 07/31/21 07/31/21 23:59 11:59 23:59 Intake Total 1440 / 2571 100 / 200 100 / 200 Output Total 1075 / 1600 550 / 550 Balance 365 / 971 -450 / -350 100 / -350 Intake: IV 1440 / 2571 100 / 200 100 / 200 Output: Gastric Drainage 500 / 550 150 / 150 Left Nare 500 / 550 150 / 150 Urine 575 / 1050 400 / 400 Other: Urine Color Yellow Yellow Urine Appearance Clear Clear Urine Odor None Normal Comment Per patient he has been voiding Voiding Methods Toilet Urinal Data Completed and Pending Labs on day of discharge: Labs from last 24 hours 07/31/21 07/31/21 07/31/21 12:00 12:00 09:29 WBC RBC Hgb Hct MCV MCH MCHC RDW Plt Count MPV PT 9.6 INR 1.0 Sodium 134 L Potassium 4.1 Chloride 101 Carbon Dioxide 21.1 Anion Gap 11.9 H BUN 55 H Creatinine 2.5 H Estimated GFR/1.73 m2 25.89 Glucose 125 H Calcium 9.0 Phosphorus Magnesium Total Bilirubin 0.2 AST 22 ALT 33 Alkaline Phosphatase 82 Total Protein 7.4 Albumin 3.4 Add-On Test Request Cancelled 07/31/21 07/31/21 07/31/21 06:35 06:35 05:25 WBC 6.76 RBC 3.08 L Hgb 9.3 L Hct 28.7 L MCV 93.2 MCH 30.2 MCHC 32.4 RDW 13.2 Plt Count 185 MPV 11.6 H PT INR Sodium 135 L Potassium 4.2 Chloride 102 Carbon Dioxide 22.5 Anion Gap 10.5 BUN 58 H D Creatinine 2.5 H Estimated GFR/1.73 m2 25.89 Glucose 105 Calcium 9.0 Phosphorus 3.8 Cancelled Magnesium 2.3 Total Bilirubin AST ALT Alkaline Phosphatase Total Protein Albumin Add-On Test Request PFSH All Active Problems (Updated 07/31/21 @ 16:48 by Hortencia Tyler MD) Paraesophageal hernia with obstruction but no gangrene (Acute) Hypermagnesemia (Acute) Incarcerated hiatal hernia (Acute) s/p laparotomy 07/04/21 Acute gastric volvulus (Acute) Diverticulitis (Chronic) Chronic kidney disease, stage 4 (severe) (Acute) Leg edema, right (Acute) Chronic kidney disease (Chronic) stage 4 Hiatal hernia (Chronic) Gallstone (Acute) Chronic alcoholic pancreatitis (Acute) Acute on chronic renal insufficiency (Acute) Ruptured extensor tendon of hand or wrist (Acute) EPL left thumb Anemia in chronic kidney disease (CKD) (Acute) Hypokalemia (Acute) Hypomagnesemia (Acute) Transaminitis (Acute) Lumbar spondylosis (Chronic) Reflux esophagitis (Chronic 09/24/95) GERD in excess of 20 years. on PPI that entire time ?esophageal stricture hx of Barretts Hypertension (Chronic) Hyperlipidemia (Chronic) Medical History (Updated 07/31/21 @ 16:48 by Hortencia Tyler MD) Alcohol abuse Gout History of basal cell cancer (~06/2019) Left ear Surgical History H/O partial resection of colon s/p ostomy reversal Replacement of total knee joint 2012-RIGHT STRESS TEST (~01/2003) Family History Mother Breast cancer Father Heart disease Hyperlipidemia Sister Alcohol abuse Depression Sister Alcohol abuse Sister No problems noted. Brother Hyperlipidemia Brother No problems noted. Brother No problems noted. Brother No problems noted. Brother No problems noted. Maternal Grandfather No problems noted. Paternal Grandfather Alcohol abuse Hyperlipidemia Maternal Grandmother Alcohol abuse Paternal Grandmother Hyperlipidemia Stroke Son Testicular cancer Son No problems noted. Son No problems noted. Son No problems noted. Social History Smoking/Tobacco Use Status: Former Tobacco Use tobacco type: cigarettes Quit Date: 05/27/73 Second Hand Exposure: No Smoking risk assessment performed?: Yes Alcohol Intake: former Counseling given: Yes Drug use: Current Sobriety Substance use type: marijuana Details: no longer drinks - goes to AA meetings Household members: spouse current occupation: [employer] Pets and animals: Yes Pets and animals: dog(s) Duration: > 90 minutes/day Frequency: daily Hoa/Sabianism: Confucianism Special hoa needs: No Do you feel safe at home: Yes Do you feel safe in your relationship?: Yes
--- NOTE | 2021-07-31 17:32 | NUR.NOTE ---
Nursing Note: Pt is A + O x 3, VSS on RA. HR regular on tele. LBM 3/3, hypoactive bowel sounds. NGT on intermittent continuous suction. It was not connected to suction most of the day today as the patient was drinking contrast for the barium swallow study. Denies any n/v. Voiding spontaneously in the urinal. TPN running at 85 ml/hr. Triple lumen PICC line is patent with + blood return. MALISSA dressing was removed this afternoon. Midline incision looks well, eliana intact. A new mepilex was placed. Pt c/o abdominal pain /10. PRN dilaudid given with good effect. Pt left the unit to go to [facility] at 1710.
== END 2021-07-31 17:10 | disposition short-term general hospital (02) | DRG 327 ==
LOC: DSU 07-24 02:29 → ER 07-24 02:29 → ICU 07-24 02:30 → MS 07-24 20:33 → ICU 07-28 03:38
PROVIDERS: Surgery; Admitting Provider Surgery; Emergency Provider Nurse Practitioner Acute Care; PCP Family Medicine; Visit Provider Surgery
PROC: (CPT 49000; principal; 2021-07-23 23:00)
DX: K44.0 Diaphragmatic hernia with obstruction, without gangrene (principal); K86.0 Alcohol-induced chronic pancreatitis; N18.4 Chronic kidney disease, stage 4 (severe); J95.89 Other postprocedural complications and disorders of respiratory system, not elsewhere classified; K31.1 Adult hypertrophic pyloric stenosis; K31.89 Other diseases of stomach and duodenum; D63.1 Anemia in chronic kidney disease; K21.00 Gastro-esophageal reflux disease with esophagitis, without bleeding; I12.9 Hypertensive chronic kidney disease with stage 1 through stage 4 chronic kidney disease, or unspecified chronic kidney disease; E78.5 Hyperlipidemia, unspecified; F10.10 Alcohol abuse, uncomplicated; R74.01 Elevation of levels of liver transaminase levels; R09.02 Hypoxemia
CPT/HCPCS: 44050; 43332; 36415; 36569; 71045; 71250; 80048; 80053; 83690; 85027; 86850; 86900; 86901; 87635; 93005; 96361; 96365; 96367; 96375; 99223; 99285; 70360; 74018; 74176; 74250; 81003; 81015; 82607; 82728; 82746; 83540; 83550; 83605; 83735; 84100; 84484; 85025; 85610; 93010; J0131; J0690; J1100; J1644; J2001; J2060; J2405; J2704; J2765; J3490

== ENCOUNTER 2021-10-09 09:12 | Outpatient (CLI) | payer MEDICARE, SELFPAY | END 2021-10-09 09:13 | disposition home or self-care (01) | LOC: LOS 09:12 | PROVIDERS: PCP Family Medicine; Visit Provider Family Medicine ==

== ENCOUNTER 2021-10-20 09:46 | Outpatient (CLI) | payer MEDICARE, SELFPAY ==
[2021-10-20 16:35] LABS: HCT 32.2 % (40.0-50.0); HGB 10.9 g/dL (13.5-17.5); MCHC 33.9 % (32.0-36.0); MCV 92 fL (80-95); MPV 11.4 fL (8.0-11.0); Platelet Count 160 10^3/uL (130-400); RBC 3.52 10^6/uL (4.36-5.78); RDW 15.5 % (11.8-14.1); RDW-SD 51.8 fL; WBC 5.84 10^3/uL (4.4-10.8)
[2021-10-20 17:18] LABS: Iron 39 ug/dL (65-175); Total Iron Binding Capacity 286 ug/dL (250-450); Transferrin Sat 14 % (20-55)
[2021-10-20 17:45] LABS: ALT 34 U/L (16-63); AST 27 U/L (15-37); Albumin 3.9 g/dL (3.4-5.0); Alkaline Phosphatase 81 U/L (46-116); Anion Gap 11.3 mmol/L (3-11); BUN 39 mg/dL (7-18); Bilirubin, Total 0.3 mg/dL (0.2-1.0); CO2 22.7 mmol/L (21.0-32.0); CREATININE 2.3 mg/dL (0.70-1.30); Calcium 8.6 mg/dL (8.5-10.1); Calculated LDL 84 mg/dL (<100); Chloride 108 mmol/L (98-107); Cholesterol 221 mg/dL (<200); Ferritin 90 ng/mL (26-388); Glucose 125 mg/dL (74-106); HDL Cholesterol 111 mg/dL (40-60); Potassium 4.1 mmol/L (3.5-5.1); Sodium 142 mmol/L (136-145); Total Protein 6.9 g/dL (6.4-8.2); Triglyceride 132 mg/dL (<150); Vitamin B12 931 pg/mL (193-986)
[2021-10-20 17:54] LABS: Lipase 629 U/L (73-393); Uric Acid 5.2 mg/dL (3.5-7.2)
[2021-10-23 05:07] LABS: Vitamin D 25 Total 24.5 ng/mL (30-100)
[2021-10-23 11:01] LABS: Hepatitis C Ab w Rflx HCV PCR Negative (Negative)
[2021-10-23 11:04] LABS: HIV-1/2 Ag & Ab Screen Negative (Negative)
== END 2021-10-20 09:47 | disposition home or self-care (01) ==
LOC: LBO 09:48
PROVIDERS: PCP Family Medicine; Visit Provider Family Medicine
DX: D63.1 Anemia in chronic kidney disease (principal); E78.5 Hyperlipidemia, unspecified; I10 Essential (primary) hypertension; M10.9 Gout, unspecified; N18.4 Chronic kidney disease, stage 4 (severe); N18.9 Chronic kidney disease, unspecified; Z11.59 Encounter for screening for other viral diseases; Z12.5 Encounter for screening for malignant neoplasm of prostate; Z01.818 Encounter for other preprocedural examination
CPT/HCPCS: 36415; 80053; 80061; 82306; 82668; 83690; 85027; 86803; 87389; 82607; 82728; 82746; 83540; 83550; 84154; 84550

== ENCOUNTER 2021-11-20 07:40 | Inpatient (IN) | payer MEDICARE, SELFPAY ==
[2021-11-20] VITALS (8 sets, daily range): BP systolic 105–134; BP diastolic 64–79; PULSE 66–91; RESP 16–18; TEMP 34.8–36.8; O2SAT 93–97
--- NOTE | 2021-11-20 09:53 | W.ED.GENAD ---
Discharge Plan Disposition Patient Disposition: [facility] INPATIENT Condition: Fair Discharge Details Chief Complaint: ETOHWithdr Clinical Impression: Acute kidney injury Admit Date/Time: 11/20/21 14:52 Admit Provider: Peg Everett Attending Provider: Peg Everett Primary Care Provider: Luis Lauren ED Provider: Cristine Stuart Discharge Instructions Activity:: Activity as Tolerated Equipment/Supplies:: No Equipment Needed Diet:: Low Sodium Discharge Orders Discharge Orders: Discharge Order (Routine); Ordered 11/22/21 Ordered By: Dionne Keane Discharge Data Discharge Date/Time-TO BE ENTERED AT DEPARTURE: 11/20/21 15:38 Medical Decision Making Mathew Mendez is a 66-year-old male with history of hypertension, CKD, anemia, hyperlipidemia presenting to emergency department for alcohol dependence. Patient reports that he has a history of alcoholism. He reports that he was previously sober from May until October 2021. Patient reports that he had a hiatal hernia repair at [facility] on October 25, and after that he began drinking to help him accomplish his usual tasks that were difficult for him after having surgery. Patient reports that he has been drinking a pint of vodka per day. Patient reports that he feels shaky and has symptoms of withdrawal whenever he stops drinking. He reports that his last drink was at 4:00 this morning. Patient reports that he is here because he would like assistance with stopping drinking. He has no pain, no fever, no cough, no shortness of breath, no vomiting, no diarrhea, no numbness, no weakness, no rash. States that he has cotinued to eat well. Pt is well and non-toxic appearing on exam. Appears mildly intoxicated. Concern for possible etoh withdrawal if Pt were to stop drinking, possible metabolic/electrolyte derangement, dehydration, other. Exam/hx at this time is not c/w sepsis, meningitis, CVA, current etoh withdrawal, SI. Plan for screening labs. Labs reviewed, creatinine 4.5, hemoglobin 11.5, BUN 86, potassium 5.2. Plan for IV placement, EKG, IV fluid hydration. Patient reassessed, now clinically sober without slurring of speech. States that he feels very well, has no symptoms at this time. Patient states that he has been urinating normally and without issue recently. He continues to deny any pain. I discussed patient presentation results with Dr. Avila of neurology at [facility], who recommended to start KATE inhibitor, no other specific recommendations at this time. Discussed patient with Dr. Everett, hospitalist, for admission. Plan for bladder scan and CT abdomen/pelvis. Post void residual 0. EKG shows sinus rhythm with QRS 111. CT negative for acute process. Plan for admission. Medical Records Medical records reviewed: Yes I reviewed the patient's medical records. Lab Data Lab results reviewed: Yes I reviewed the patient's lab results. ECG Data Attestation: I personally reviewed and interpreted this ECG (s) as follows: Interpretation: EKG shows sinus rhythm at 64, normal axis, QRS 111, no acute ischemic changes HPI General Mode of arrival: ambulatory. Date/Time Provider Initiated Documentation: 11/20/21 07:44. Limitations to Documentation: no limitations. Information obtained by: patient, RN notes reviewed and old records reviewed. HPI Narrative: Mathew Mendez is a 66-year-old male with history of hypertension, CKD, anemia, hyperlipidemia presenting to emergency department for alcohol dependence. Patient reports that he has a history of alcoholism. He reports that he was previously sober from May until October 2021. Patient reports that he had a hiatal hernia repair at [facility] on October 25, and after that he began drinking to help him accomplish his usual tasks that were difficult for him after having surgery. Patient reports that he has been drinking a pint of vodka per day. Patient reports that he feels shaky and has symptoms of withdrawal whenever he stops drinking. He reports that his last drink was at 4:00 this morning. Patient reports that he is here because he would like assistance with stopping drinking. He has no pain, no fever, no cough, no shortness of breath, no vomiting, no diarrhea, no numbness, no weakness, no rash. States that he has cotinued to eat well. Related Data Home Medications Medication Instructions Recorded Confirmed vitamin B complex (B 1 tab PO DAILY 08/09/20 11/20/21 Complex-Vitamin B12 tablet) amlodipine 10 mg tablet 10 mg PO DAILY #90 tabs 02/17/21 11/20/21 omeprazole 40 mg capsule,delayed 40 mg PO DAILY #90 caps 06/06/21 11/20/21 release metoprolol tartrate 25 mg tablet 25 mg PO BID #180 tabs 08/15/21 11/20/21 folic acid 1 mg tablet 1 mg PO QAM #0 tabs 11/21/21 multivitamin (Multiple Vitamins 1 tab PO QAM #0 tabs 11/21/21 tablet) thiamine mononitrate (vit B1) 100 100 mg PO QAM #30 tabs 11/21/21 mg tablet Previous Rx's Medication Instructions Recorded amlodipine 10 mg tablet 10 mg PO DAILY #90 tabs 02/17/21 omeprazole 40 mg capsule,delayed 40 mg PO DAILY #90 caps 06/06/21 release metoprolol tartrate 25 mg tablet 25 mg PO BID #180 tabs 08/15/21 folic acid 1 mg tablet 1 mg PO QAM #0 tabs 11/21/21 multivitamin (Multiple Vitamins 1 tab PO QAM #0 tabs 11/21/21 tablet) thiamine mononitrate (vit B1) 100 100 mg PO QAM #30 tabs 11/21/21 mg tablet Allergies Allergy/AdvReac Type Severity Reaction Status Date / Time morphine Allergy Intermediate HIVES/RASH Verified 11/20/21 07:48 General Stated Complaint: ETOHWithdr VICTORIA: 2 Review of Systems Narrative: Constitutional: denies fevers Eyes: denies eye pain ENT: denies ear pain, dental pain, sore throat Cardiovascular: denies chest pain, edema Respiratory: denies SOB, cough GI: denies abdominal pain, vomiting, diarrhea : denies flank pain, urinary changes MSK: denies back pain, neck pain, arthralgias, myalgias Skin: denies rash Neuro: denies headaches, numbness, weakness PFS All Active Problems (Updated 11/22/21 @ 22:47 by Cristine Stuart MD) Acute kidney injury (Acute) Diverticulitis (Chronic) about 2004 .[facility] [place] emergent with partial resection with colostomy colostomy reversed later that year no problems since Gout (Chronic) Alcohol abuse (Chronic) recurrent, hospitalized 2020 Essential hypertension (Acute) 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 This did resolve with conservative care did not require any further immediate intervention, hospitalized at [facility] Chronic kidney disease, stage 4 (severe) (Acute) Gallstone (Acute) Chronic alcoholic pancreatitis (Acute) Ruptured extensor tendon of hand or wrist (Acute) EPL left thumb Anemia in chronic kidney disease (CKD) (Acute) Lumbar spondylosis (Chronic) Reflux esophagitis (Chronic 09/24/95) GERD in excess of 20 years. on PPI that entire time ?esophageal stricture hx of Barretts Hyperlipidemia (Chronic) Medical History Alcohol abuse Gout History of basal cell cancer (~06/2019) Left ear Surgical History H/O partial resection of colon s/p ostomy reversal Replacement of total knee joint 2012-RIGHT STRESS TEST (~01/2003) Family History Mother Breast cancer Father Heart disease Hyperlipidemia Sister Alcohol abuse Depression Sister Alcohol abuse Sister No problems noted. Brother Hyperlipidemia Brother No problems noted. Brother No problems noted. Brother No problems noted. Brother No problems noted. Maternal Grandfather No problems noted. Paternal Grandfather Alcohol abuse Hyperlipidemia Maternal Grandmother Alcohol abuse Paternal Grandmother Hyperlipidemia Stroke Son Testicular cancer Son No problems noted. Son No problems noted. Son No problems noted. 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 Pets and animals: Yes Pets and animals: dog(s) Duration: > 90 minutes/day Frequency: daily Hoa/Jewish: Congregation Special hoa needs: No Do you feel safe at home: Yes Do you feel safe in your relationship?: Yes Exam Narrative Exam Narrative: Constitutional: well and [id number], pleasant, very mild slurring of speech, otherwise conversing normally HENT: head atraumatic/normocephalic/normal inspection, mucous membranes moist Eyes: conjunctiva normal, sclera normal, pupils 3mm b/l Neck: no stridor, normal ROM, trachea midline Resp: normal work of breathing, speaking in full sentences Cardio: normal rate, normal rhythm GI: abdomen soft, non-tender, non-distended Skin: warm, dry, normal color, no rash Neuro: alert, mild slurring of speech, alert and oriented x3, lucid thought process, grossly non-focal, normal tone, no tremor Ext: Moving all extremities equally Psych: normal mood, normal affect, normal behavior Course Vital Signs Vital signs: Vital Signs Temperature 36.5 C 11/20/21 07:45 Pulse 66 11/20/21 07:45 Respiratory Rate 18 11/20/21 07:45 Blood Pressure 105/64 11/20/21 07:45 Pulse Oximetry 97 11/20/21 07:45 Temperature 36.5 C 11/20/21 07:45 Temperature Source Temporal Artery Scan 11/20/21 07:45 Pulse 66 11/20/21 07:45 Respiratory Rate 18 11/20/21 07:45 Respiratory Effort Non-Labored 11/20/21 07:48 Respiratory Pattern Normal 11/20/21 07:55 Blood Pressure 105/64 11/20/21 07:45 Blood Pressure Position Sitting 11/20/21 07:45 Pulse Oximetry 97 11/20/21 07:45 Oxygen Delivery Method Room Air 11/20/21 07:45 Oxygen Flow Rate 0 11/20/21 07:45 PAWSS Have you Been Recently Intoxicated or Drunk Within the Last 30 days?: Yes Have you Ever Experienced Previous Episodes of Alcohol Withdrawal?: Yes Have you ever Experienced Withdrawal Seizures?: No Have you ever Experienced Delirium Tremens(DT)s?: No Have you ever undergone Alcohol Rehabilitation Treatment (i.e, inpt ot outpatient treatment programs)?: Yes Have you ever Experienced Blackouts?: No Have you ever Combined Alcohol with other Downers within the last 90 days?: No Have you ever Combined Alcohol with any other Substance of Abuse during the last 90 days?: No Positive Blood Alcohol level on Presentation? [PCS.BAL]: Yes Evidence of Increased Autonomic Activity (i.e. HR>120, tremor, sweating, agitation, nausea)?: No Result: 4
[2021-11-20 11:06] LABS: Abs Immature Grans 0.02 10^3/uL (0.0-0.06); Absolute Basophil Count 0.05 10^3/uL (0.0-0.2); Absolute Eosinophil Count 0.35 10^3/uL (0.0-0.7); Absolute Monocyte Count 0.42 10^3/uL (0.1-0.8); Absolute Neutrophil Count 3.89 10^3/uL (1.2-6.7); Basophils % 0.9; Eosinophils % 6.1; HCT 34.9 % (40.0-50.0); HGB 11.5 g/dL (13.5-17.5); Immature Grans % 0.3; Lymphocytes % 17.5; MCV 94 fL (80-95); MPV 10.3 fL (8.0-11.0); Monocytes % 7.3; Neutrophils % 67.9; Platelet Count 214 10^3/uL (130-400); RBC 3.71 10^6/uL (4.36-5.78); RDW 15.6 % (11.8-14.1); RDW-SD 54.1 fL; WBC 5.73 10^3/uL (4.4-10.8)
[2021-11-20 11:24] LABS: ALT 23 U/L (16-63); AST 22 U/L (15-37); Albumin 3.8 g/dL (3.4-5.0); Alkaline Phosphatase 98 U/L (46-116); Anion Gap 15.7 mmol/L (3-11); Bilirubin, Total 0.2 mg/dL (0.2-1.0); CO2 16.3 mmol/L (21.0-32.0); Calcium 8.5 mg/dL (8.5-10.1); Chloride 107 mmol/L (98-107); ETHANOL BLOOD 161.6 mg/dL (<10); Estimated GFR 13.14 (mL/min/1.73m2); Glucose 75 mg/dL (74-106); Magnesium 2.7 mg/dL (1.8-2.4); Potassium 5.2 mmol/L (3.5-5.1); Sodium 139 mmol/L (136-145); Total Protein 7.7 g/dL (6.4-8.2)
[2021-11-20 11:26] LABS: BUN 86 mg/dL (7-18)
[2021-11-20 11:27] LABS: CREATININE 4.5 mg/dL (0.70-1.30)
--- NOTE | 2021-11-20 11:30 | RT.EKG_ITS ---
APPROVED REPORT Exam: Resting ECG Reason for Exam: hyperkalemia Patient Location: E HR:64 bpm ECG Measurements Heart Rate 64 AXIS DE 186 P 56 QRSd 111 QRS 21 QT 399 T 53 QTc 411 Conclusion Sinus rhythm...normal P axis, V-rate 60- 99 sinus rhythm at 64, normal axis, QRS 111, no STEMI
[2021-11-20] MEDS: Normal Saline 1,000 ML 1000 ML IV ×2 (12:13→13:50)
--- NOTE | 2021-11-20 13:15 | DI.CT_ITS ---
Exam(s) CT RENAL COLIC WO EXAM: CT RENAL COLIC WO CLINICAL HISTORY: PAIGE. TECHNIQUE: Imaging Protocol: Axial computed tomography images with coronal and sagittal reformatted images were created and reviewed CONTRAST MATERIAL: Intravenous: none Oral: None COMPARISON: CT CT CHEST/ABD/PEL WO from 07/23/2021 FINDINGS: VISUALIZED LUNG BASES: Mild infiltrate in the right lung base noted. No obvious pleural effusion. ABDOMEN: There is no ascites. LIVER: There is severe hepatic steatosis noted . GALLBLADDER/BILIARY: Cholelithiasis is again noted. There is a single round calcified gallstone marilin uring 7 millimeters on the dependent the lower gallbladder again noted. No gallbladder wall edema no r pericholecystic fluid. CBD is not dilated. PANCREAS: No evidence of pancreatic mass nor dilatation of the pancreatic duct. SPLEEN: Spleen is not enlarged. No obvious intrasplenic lesions. ADRENALS: There are no significant adrenal masses. KIDNEYS:Right kidney unremarkable. There is a small exophytic cyst off the posterior cortex of the l eft kidney noted, this measuring 8 x 7 millimeters. No calculi. No hydronephrosis on either side. No hydroureter. No calculi nor obvious masses in the somewhat distended urinary bladder.. ABDOMINAL AORTA: Abdominal aorta is not enlarged. LYMPH NODES: There is no retroperitoneal nor paraaortic adenopathy. ABDOMINAL WALL: Small para umbilical fat containing hernia. No bowel loops therein. GI: There is evidence of a low anastomosis in the rectum. No abnormal findings at this level. PELVIS: LYMPH NODES: There is no intrapelvic nor inguinal adenopathy. GI: Appendix is not seen. anastomotic suture line is noted in a bowel loop in the right-side of the p alvin which is fecalized but not obviously obstructed. URINARY BLADDER: Mildly distended but without calculi nor masses therein. REPRODUCTIVE: Prostate mildly enlarged. Seminal vesicles unremarkable OSSEOUS: No significant osseous lesions. Disc space narrowing at L4-5 and L5-S1 levels noted. IMPRESSION: 1. No renal calculi nor dilatation of the collecting system on either side. Incidentally noted is an exophytic 8 millimeter cyst off the posterior cortex of the left kidney, inferiorly. The urinary bl adder is mildly distended but there are no calculi nor masses therein. 2. Evidence of previous distal small bowel and rectal surgery. No bowel obstruction. No free air. Nor abscess. 3. Severe Paddock steatosis noted. This appears to have progressed when compared to the CT scan of 0 07/23/2021. RADIATION DOSE DELIVERED: 745.11mGy.cm Total DLP DATA REPOSITORY: All CT scans at this facility are submitted to the National Radiology Data Registry (NRDR) Dose Index Registry (DIR) with the [employer] (ACR). RADIATION OPTIMIZATION: All CT scans at this facility use at least one of these dose optimization te chniques: automated exposure control; mA and/or kV adjustment per patient size (includes targeted exa ms where dose is matched to clinical indication); or iterative reconstruction.
[2021-11-20 14:16] LABS: Bilirubin Negative (Negative); Blood Trace-lysed (Negative); Clarity Clear (Clear); Glucose Negative (Negative); Ketones Negative (Negative); Leukocyte Esterase Negative (Negative); Nitrite Negative (Negative); Urobilinogen 0.2 EU/dL (Up TO 0.2); pH 5.5 (5-8)
[2021-11-20 14:28] LABS: Bacteria Negative HPF (Negative); C & S Indicated? No; Casts Negative LPF (Negative); Crystals Negative HPF (Negative); Epithelial Cells Rare HPF (Negative); Mucus Negative (Negative); RBC 0-2 HPF (0-2); WBC Negative HPF (0-5)
[2021-11-20 15:09] LABS: Lab Add On Test DONE
[2021-11-20 15:37] LABS: Source Nasal/Nares
[2021-11-20 16:06] LABS: Creatine Kinase 81 U/L (39-308)
[2021-11-20 16:30] LABS: COVID-19 PCR Negative (Negative)
--- NOTE | 2021-11-20 16:32 | HPE_ITS ---
Date of service: 11/20/21 Time of Service: 16:32 Assessment and Plan Assessment and plan (1) Alcohol withdrawal: Start date: 11/20/21 Start time: 17:07 Status: Deleted Assessment and plan: We will do CIWA score Monitor on CIWA with PO ativan. 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 He states he has been to [facility] twice and does not want to go back. Discussed concerns re returning home so quickly without assuring support systems are available. (4) DVT prophylaxis: Status: Deleted Assessment and plan: Heparin 5000 units every 8 h sc (5) Discharge planning issues: Status: Deleted Assessment and plan: Full code; rehab v home Discussed with Dr Everett History of Present Illness History of Present Illness Chief Complaint: Alcohol dependence Narrative: Mathew Mendez is a 66-year-old male with a past medical history of hypertension, CKD, anemia, hyperlipidemia, and alcoholism. He presented to the [facility] emergency department requesting assistance for alcohol dependence.? The patient reports that he has a history of alcoholism.? He reports he had stomach surgery sometime in June 2021 and spent two weeks at [facility]. He states that he was weak and couldn't cope after being discharged, he began drinking alcohol again. It is unclear if he stopped drinking, he said he did after several months, but states he did not later in the conversation. The patient also reports that he had a hiatal hernia repair at [facility] on October 25, and again started drinking. Patient reports that drinks a pint of vodka per day, every day, maybe more.? Patient reports that he feels shaky and has symptoms of withdrawal whenever he stops drinking and decided yesterday that he was going to come here and admit himself. He states he stayed up all night, knowing he was going to come here, and reports that his last drink was at 4:00 this morning.?He has no pain, no fever, no cough, no shortness of breath, no vomiting, no diarrhea, no numbness, no weakness, no rash. He states his is willing to support him. 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 He has been to [place] [facility] for 3 week in the past, unclear what date, and he felt it was helpful to him and he did stop drinking. Review of Systems All systems reviewed & are unremarkable except as noted in HPI and below Constitutional Constitutional: Reports as per HPI [facility] All Active Problems Diverticul[place] (Chronic) [place] [place] with colostomy colostomy reversed later that year no problems since Gout (Chronic) Alcohol abuse (Chronic) recurrent, hospitalized 2020 Essential hypertension (Acute) Paraesophageal hernia with obstruction but no gangrene (Acute) Acute gastric volvulus (Acute) 06/2021-required hospitalization and emergent surgery at [facility], associated with the paraesophageal hernia 07/2021-following surgery patient with gastric outlet obstruction. This did resolve with conservative care did not require any further immediate intervention, hospitalized at [facility] Chronic kidney disease, stage 4 (severe) (Acute) Gallstone (Acute) Chronic alcoholic pancreatitis (Acute) Ruptured extensor tendon of hand or wrist (Acute) EPL left thumb Anemia in chronic kidney disease (CKD) (Acute) Lumbar spondylosis (Chronic) Reflux esophagitis (Chronic 09/24/95) GERD in excess of 20 years. on PPI that entire time ?esophageal stricture hx of Barretts Hyperlipidemia (Chronic) Medical History Alcohol abuse Gout History of basal cell cancer (~06/2019) Left ear Surgical History H/O partial resection of colon s/p ostomy reversal Replacement of total knee joint 2012-RIGHT STRESS TEST (~01/2003) Family History Mother Breast cancer Father Heart disease Hyperlipidemia Sister Alcohol abuse Depression Sister Alcohol abuse Sister No problems noted. Brother Hyperlipidemia Brother No problems noted. Brother No problems noted. Brother No problems noted. Brother No problems noted. Maternal Grandfather No problems noted. Paternal Grandfather Alcohol abuse Hyperlipidemia Maternal Grandmother Alcohol abuse Paternal Grandmother Hyperlipidemia Stroke Son Testicular cancer Son No problems noted. Son No problems noted. Son No problems noted. 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 Pets and animals: Yes Pets and animals: dog(s) Duration: > 90 minutes/day Frequency: daily Hoa/Orthodox: Shinto Special hoa needs: No Do you feel safe at home: Yes Do you feel safe in your relationship?: Yes Meds Allergies and Home Medications Allergies Allergy/AdvReac Type Severity Reaction Status Date / Time morphine Allergy Intermediate HIVES/RASH Verified 11/20/21 07:48 Home Medications Medication Instructions Recorded Confirmed Type vitamin B complex (B 1 tab PO DAILY 08/09/20 11/20/21 History Complex-Vitamin B12 tablet) amlodipine 10 mg tablet 10 mg PO DAILY #90 tabs 02/17/21 11/20/21 Rx allopurinol 100 mg tablet 100 mg PO DAILY #90 tab-caps 06/01/21 11/20/21 Rx omeprazole 40 mg capsule,delayed 40 mg PO DAILY #90 caps 06/06/21 11/20/21 Rx release metoprolol tartrate 25 mg tablet 25 mg PO BID #180 tabs 08/15/21 11/20/21 Rx lisinopril 5 mg tablet See Rx Instructions .Route 09/18/21 11/20/21 Rx .COMPLEX #90 tabs Exam Narrative Exam Narrative: Constitutional: well and [id number], pleasant, very mild slurring of speech, otherwise conversing normally HENT: head atraumatic/normocephalic/normal inspection, mucous membranes moist Eyes: conjunctiva normal, sclera normal, pupils 3mm b/l Neck: no stridor, normal ROM, trachea midline Resp: normal work of breathing, speaking in full sentences Cardio: normal rate, normal rhythm GI: abdomen soft, non-tender, non-distended Skin: warm, dry, normal color, no rash Neuro: alert, mild slurring of speech, alert and oriented x3, lucid thought p rocess, normal tone Ext: Moving all extremities equally Psych: normal mood, normal affect, normal behavior, poor eye conact Results Labs Result diagrams: 11/20/21 10:56 11/21/21 06:30 Labs: Laboratory Results - last 24 hr 11/20/21 11/20/21 11/20/21 10:56 10:56 10:56 WBC 5.73 RBC 3.71 L Hgb 11.5 L Hct 34.9 L MCV 94 MCH 31.0 MCHC 33.0 RDW 15.6 H Plt Count 214 MPV 10.3 Immature Gran % 0.3 Neutrophils % 67.9 Lymphocytes % 17.5 Monocytes % 7.3 Eosinophils % 6.1 Basophils % 0.9 Nucleated RBC % 0.0 Absolute Neutrophils 3.89 Absolute Lymphocytes 1.00 L Absolute Monocytes 0.42 Absolute Eosinophils 0.35 Absolute Basophils 0.05 Sodium 139 Potassium 5.2 H Chloride 107 Carbon Dioxide 16.3 L Anion Gap 15.7 H BUN 86 H* Creatinine 4.5 H* Estimated GFR/1.73 m2 13.14 Glucose 75 Calcium 8.5 Magnesium 2.7 H Total Bilirubin 0.2 AST 22 ALT 23 Alkaline Phosphatase 98 Total Protein 7.7 Albumin 3.8 Urine Color Urine Clarity Urine pH Ur Specific Wittman Urine Protein Urine Ketones Urine Blood Urine Nitrite Urine Bilirubin Urine Urobilinogen Ur Leukocyte Esterase Urine RBC Urine WBC Ur Epithelial Cells Urine Crystals Urine Bacteria Urine Casts Urine Mucus Ur Culture Indicated? Urine Glucose Ethyl Alcohol 161.6 H COVID-19 Source Add-On Test Request DONE 11/20/21 11/20/21 13:45 14:52 WBC RBC Hgb Hct MCV MCH MCHC RDW Plt Count MPV Immature Gran % Neutrophils % Lymphocytes % Monocytes % Eosinophils % Basophils % Nucleated RBC % Absolute Neutrophils Absolute Lymphocytes Absolute Monocytes Absolute Eosinophils Absolute Basophils Sodium Potassium Chloride Carbon Dioxide Anion Gap BUN Creatinine Estimated GFR/1.73 m2 Glucose Calcium Magnesium Total Bilirubin AST ALT Alkaline Phosphatase Total Protein Albumin Urine Color Yellow Urine Clarity Clear Urine pH 5.5 Ur Specific Wittman 1.020 Urine Protein 30 H Urine Ketones Negative Urine Blood Trace-lysed H Urine Nitrite Negative Urine Bilirubin Negative Urine Urobilinogen 0.2 Ur Leukocyte Esterase Negative Urine RBC 0-2 Urine WBC Negative Ur Epithelial Cells Rare Urine Crystals Negative Urine Bacteria Negative Urine Casts Negative Urine Mucus Negative Ur Culture Indicated? No Urine Glucose Negative Ethyl Alcohol COVID-19 Source Nasal/Nares Add-On Test Request Last Vital Signs Temp 34.8 C L 11/20/21 14:40 Pulse 76 11/20/21 14:40 Resp 18 11/20/21 07:45 BP 110/64 11/20/21 14:40 Pulse Ox 94 11/20/21 14:40 PAWSS Have you Been Recently Intoxicated or Drunk Within the Last 30 days?: Yes Have you Ever Experienced Previous Episodes of Alcohol Withdrawal?: Yes Have you ever Experienced Withdrawal Seizures?: No Have you ever Experienced Delirium Tremens(DT)s?: No Have you ever undergone Alcohol Rehabilitation Treatment (i.e, inpt ot outpatient treatment programs)?: Yes Have you ever Experienced Blackouts?: No Have you ever Combined Alcohol with other Downers within the last 90 days?: No Have you ever Combined Alcohol with any other Substance of Abuse during the last 90 days?: No Positive Blood Alcohol level on Presentation? [PCS.BAL]: Yes Evidence of Increased Autonomic Activity (i.e. HR>120, tremor, sweating, agitation, nausea)?: Yes Result: 5
[2021-11-20] MEDS: Lactated Ringers 1,000 ML 125 ML IV (16:55)
[2021-11-20] MEDS: Heparin 5,000 UNITS/ML VIAL 5000 UNITS SC ×2 (16:55→23:52)
[2021-11-20] MEDS: Thiamine 100 MG TAB PO (16:56)
[2021-11-20] MEDS: LORazepam 1 MG TAB PO/SL ×2 (19:24→21:59)
[2021-11-20] MEDS: Metoprolol 25 MG TAB PO (19:24)
[2021-11-21] VITALS (12 sets, daily range): BP systolic 124–141; BP diastolic 72–82; PULSE 77–91; RESP 14–19; TEMP 36.1–37.4; O2SAT 93–96
[2021-11-21] MEDS: Lactated Ringers 1,000 ML 125 ML IV ×4 (00:52→23:50)
[2021-11-21 07:40] LABS: Anion Gap 10.9 mmol/L (3-11); BUN 69 mg/dL (7-18); CO2 19.1 mmol/L (21.0-32.0); CREATININE 2.9 mg/dL (0.70-1.30); Calcium 8.4 mg/dL (8.5-10.1); Chloride 106 mmol/L (98-107); Estimated GFR 21.81 (mL/min/1.73m2); Ferritin 112 ng/mL (26-388); Glucose 85 mg/dL (74-106); Potassium 5.1 mmol/L (3.5-5.1); Sodium 136 mmol/L (136-145); Vitamin B12 1130 pg/mL (193-986)
[2021-11-21] MEDS: Vitamins B Comp w/C TAB 1 TAB PO (07:47)
[2021-11-21] MEDS: Omeprazole 20 MG CAPCR 40 MG PO (07:47)
[2021-11-21] MEDS: Heparin 5,000 UNITS/ML VIAL 5000 UNITS SC ×2 (07:49→15:40)
[2021-11-21] MEDS: Metoprolol 25 MG TAB PO ×2 (07:49→20:07)
[2021-11-21] MEDS: Multivitamin TAB 1 TAB PO (07:49)
[2021-11-21] MEDS: Thiamine 100 MG TAB PO (07:50)
[2021-11-21] MEDS: amLODIPine 10 MG TAB PO (07:50)
[2021-11-21] MEDS: Folic Acid 1 MG TAB PO (07:51)
[2021-11-21 07:52] LABS: Iron 97 ug/dL (65-175); Total Iron Binding Capacity 283 ug/dL (250-450); Transferrin Sat 34 % (20-55)
--- NOTE | 2021-11-21 08:37 | PDOC.CMIN ---
- If Service Date Differs Date of service: 11/21/21 Time of Service: 08:37 Care Management Initial Assess REASON FOR HOSPITALIZATION:: Acute on Chronic Kidney Failure, Alcohol Withdrawal PAST MEDICAL HISTORY/PAST SURGICAL HISTORY:: All Active Problems . Diverticulitis (Chronic). about 2004 .[facility] [place] with partial resection with colostomy. colostomy reversed later that year. no problems since. Gout (Chronic). Alcohol abuse (Chronic). recurrent, hospitalized 2020. Essential hypertension (Acute). 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 Acute gastric volvulus (Acute). 06/2021-required hospitalization and emergent surgery at [facility], associated with the paraesophageal hernia. 07/2021-following surgery patient with gastric outlet obstruction. This did resolve with conservative care did not require any further immediate intervention, hospitalized at [email or web address] Chronic kidney disease, stage 4 (severe) (Acute). Gallstone (Acute). Chronic alcoholic pancreatitis (Acute). Ruptured extensor tendon of hand or wrist (Acute). EPL left thumb. Anemia in chronic kidney disease (CKD) (Acute). Lumbar spondylosis (Chronic). Reflux esophagitis (Chronic 09/24/95). GERD in excess of 20 years. on PPI that entire time. ?esophageal stricture. hx of Barretts. Hyperlipidemia (Chronic). Medical History . Alcohol abuse. Gout. History of basal cell cancer (~06/2019). Left ear. Surgical History . H/O partial resection of colon. s/p ostomy reversal. Replacement of total knee joint. 2013-RIGHT. STRESS TEST (~01/2003) PREVIOUS FUNCTIONAL STATUS/SOCIAL/FAMILY SUPPORTS:: Mathew resides with his , Yen in [place], [place]. 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 His adult children reside locally and are supportive. CURRENT FUNCTIONAL STATUS:: Mathew was sitting up in bed when CM met with him, He is alert, oriented and easy to engage in conversation. Mathew shared that he has a long hx of alcohol use. Mathew shares that he would like to return to and had a sponser in the past. He is agreeable to a referral to the [facility]. ADVANCE DIRECTIVES:: None on file at [facility]. Has patient been provided with info about the portal/API?: Yes Did the patient sign up for the portal?: Yes (Prior to admission) CODE STATUS:: Full Code INSURANCE COVERAGE / FINANCIAL ISSUES:: [facility] [employer] CURRENT HOME/COMMUNITY SERVICES/EQUIPMENT:: None at this time PRIMARY CARE PHYSICIAN:: [facility] POTENTIAL DISCHARGE NEEDS:: Referral to inpatient treatment center vs Outpatient treatment program and community resources. Follow up appointments with community providers. PATIENT/FAMILY EDUCATION NEEDS:: Review discharge instructions, limitations, medications and plan to follow up with community providers. TRANSPORTATION:: Via private vehicle with his . PLAN:: Mathew is being closely monitored and treated per CIWA protocol. Anticipate he will discharge home with increased community support vs inpatient rehab, when medically ready. He will follow up with community providers and discharge plan of care as prescribed. will continue to support patient and his discharge planning needs.
[2021-11-21] MEDS: LORazepam 1 MG TAB PO/SL (12:05)
--- NOTE | 2021-11-21 16:08 | W.PM.PROGNOT ---
Date of Service Date of service: 11/21/21 Time of Service: 16:08 Assessment and Plan Assessment and plan (1) Alcohol withdrawal: Start date: 11/21/21 Start time: 16:12 Status: Deleted Assessment and plan: We will do CIWA score Monitor on CIWA with PO ativan. Bolus IV thiamine, then PO, (2) Acute kidney injury superimposed on chronic kidney disease: Start date: 11/21/21 Start time: 16:13 Status: Deleted Assessment and plan: BUN improved 69, Creatinine improved 2.9 Hold NSAIDs, hold lisinopril, hydrate with IV fluids (3) Alcohol abuse: Status: Deleted Assessment and plan: Still not interested in rehab. has visited today and she voices concerns of his failing at home, she states he has fallen off the wagon three times in the past 6 months. He is convinced he is fine to go home and he will not drink alcohol, I encouraged him to stay one more day secondary to concern he will withdrawal. He is in agreement. (4) DVT prophylaxis: Status: Deleted Assessment and plan: Heparin 5000 units every 8 h sc (5) Discharge planning issues: Status: Deleted Assessment and plan: Full code; rehab v home Discussed with Dr Everett Subjective Subjective Patient reports: no new complaints Exam Narrative Exam Narrative: Constitutional: well and [id number], pleasant, very mild slurring of speech, otherwise conversing normally HENT: head atraumatic/normocephalic/normal inspection, mucous membranes moist Eyes: conjunctiva normal, sclera normal, pupils 3mm b/l Neck: no stridor, normal ROM, trachea midline Resp: normal work of breathing, speaking in full sentences Cardio: normal rate, normal rhythm GI: abdomen soft, non-tender, non-distended Skin: warm, dry, normal color, no rash Neuro: alert, mild slurring of speech, alert and oriented x3, lucid thought process, grossly non-focal, normal tone Ext: Moving all extremities equally Psych:flat affect, poor eye contact, rolling his eyes at suggestions Objective Last Vital Signs Temp 37.4 C 11/21/21 14:32 Pulse 84 11/21/21 14:32 Resp 16 11/21/21 14:32 BP 125/75 11/21/21 14:32 Pulse Ox 96 11/21/21 14:32 Laboratory Results - last 24 hr 11/20/21 11/20/21 11/20/21 10:56 14:52 20:16 VBG Lactate 1.0 Sodium Potassium Chloride Carbon Dioxide Anion Gap BUN Creatinine Estimated GFR/1.73 m2 Glucose Calcium Magnesium Iron TIBC Transferrin % Sat Ferritin Creatine Kinase 81 Vitamin B12 Folate SARS-CoV-2 (PCR) Negative 11/21/21 11/21/21 06:30 06:30 VBG Lactate Sodium 136 Potassium 5.1 Chloride 106 Carbon Dioxide 19.1 L Anion Gap 10.9 BUN 69 H Creatinine 2.9 H D Estimated GFR/1.73 m2 21.81 Glucose 85 Calcium 8.4 L Magnesium 2.0 Iron 97 TIBC 283 Transferrin % Sat 34 Ferritin 112 Creatine Kinase Vitamin B12 1130 H Folate 11.0 SARS-CoV-2 (PCR) PAWSS Have you Been Recently Intoxicated or Drunk Within the Last 30 days?: Yes Have you Ever Experienced Previous Episodes of Alcohol Withdrawal?: Yes Have you ever Experienced Withdrawal Seizures?: No Have you ever Experienced Delirium Tremens(DT)s?: No Have you ever undergone Alcohol Rehabilitation Treatment (i.e, inpt ot outpatient treatment programs)?: Yes Have you ever Experienced Blackouts?: No Have you ever Combined Alcohol with other Downers within the last 90 days?: No Have you ever Combined Alcohol with any other Substance of Abuse during the last 90 days?: No Positive Blood Alcohol level on Presentation? [PCS.BAL]: Yes Evidence of Increased Autonomic Activity (i.e. HR>120, tremor, sweating, agitation, nausea)?: Yes Result: 5
--- NOTE | 2021-11-21 21:51 | W.PM.DS.N ---
Date of service: 11/22/21 Time of Service: 10:00 Discharge Plan Disposition Patient Disposition: HOME Condition: Fair Discharge Details Reason For Visit: Acute on Chronic Kidney Failure,Alcohol Abuse Admit Date/Time: 11/20/21 14:52 Admit Provider: Peg Everett Attending Provider: Peg Everett Primary Care Provider: Luis Lauren Hospital Course Hospital Course: Mathew came to [facility] ED yesterday asking for help with alcoholism. He has a long history of alcoholism and has been to rehab at [facility] twice in the past. He had a major surgery on his abdomen in June this year and states he started drinking again right after that. His states he has had 3 relapses in the past 10 months. He wants to go home and use his local resources, AA, he has a sponsor. He does not want to go to an in patient rehab or a local day program. He did not experience seizures, he did have irritability and was tremulous. His , Yen is in support of his sobriety; they plan to see a counselor together and separately as well. Yen is not convinced this is the best plan, but she knows he will not go to an inpatient facility and that this was a start to acknowledging there is an issue and maybe next time he'll go to an inpatient facility. He is discharged to home with her. Discussed with Dr Jaramillo Discharge and patient care took 60 min Home Meds and New Rx's Prescriptions: New multivitamin [Multiple Vitamins] Tablet 1 tab PO QAM Qty: 0 0RF folic acid 1 mg Tablet 1 mg PO QAM Qty: 0 0RF thiamine mononitrate (vit B1) 100 mg Tablet 100 mg PO QAM Qty: 30 0RF Continued vitamin B complex [B Complex-Vitamin B12] Tablet 1 tab PO DAILY metoprolol tartrate 25 mg tablet 25 mg PO BID Qty: 180 3RF omeprazole 40 mg capsule,delayed release(DR/EC) 40 mg PO DAILY Qty: 90 3RF Discontinued allopurinol 100 mg tablet 100 mg PO DAILY Qty: 90 3RF lisinopril 5 mg tablet See Rx Instructions .ROUTE .COMPLEX Qty: 90 3RF Dose Instruction: TAKE 1 TABLET BY MOUTH DAILY Rx Instructions: TAKE 1 TABLET BY MOUTH DAILY No Action amlodipine 10 mg tablet 10 mg PO DAILY Qty: 90 3RF Discharge Instructions Instructions: Acute Kidney Injury (DC), Abuse of Alcohol (DC) Additional Instructions: Do not take Lisinopril until you follow up with your PCP. Referrals: Luis Lauren MD [Primary Care Provider] - (Follow up in 1-2 weeks) Activity:: Activity as Tolerated Equipment/Supplies:: No Equipment Needed Diet:: Low Sodium Discharge Orders Other Ambulatory Orders: Basic Metabolic Panel (Routine) Timeframe: [id number] Location: None Selected Ordered By: Jena Lucero DS: Summary Time Spent with Patient providing and/or coordinating discharge services: Greater than 30 minutes Status at Discharge Functional status at discharge: independent ambulation Overall status at discharge: patient is progressing back to baseline Mental Status: mental status grossly normal Speech and Movement: speech and movement normal Mood: congruent mood Affect: normal affect Exam Narrative Exam Narrative: Constitutional: well and [id number], pleasant, very mild slurring of speech, otherwise conversing normally HENT: head atraumatic/normocephalic/normal inspection, mucous membranes moist Eyes: conjunctiva normal, sclera normal, pupils 3mm b/l Neck: no stridor, normal ROM, trachea midline Resp: normal work of breathing, speaking in full sentences Cardio: normal rate, normal rhythm GI: abdomen soft, non-tender, non-distended Skin: warm, dry, normal color, no rash Neuro: alert, mild slurring of speech, alert and oriented x3, lucid thought process, grossly non-focal, normal tone Ext: Moving all extremities equally Psych:flat affect, poor eye contact, dismissive Psych Mental Status: mental status grossly normal Speech and Movement: speech and movement normal Mood: congruent mood Affect: normal affect DS: Data Vitals/I&O Vitals and I&O: Vital Signs Temperature 36.9 C 11/21/21 17:28 Temperature Source Skin 11/21/21 17:28 Pulse 91 H 11/21/21 17:28 Pulse Rhythm Regular 11/21/21 20:02 Respiratory Rate 14 11/21/21 19:15 Respiratory Effort Non-Labored 11/21/21 20:02 Respiratory Depth Normal 11/21/21 20:02 Respiratory Pattern Normal 11/21/21 20:02 Blood Pressure 136/82 11/21/21 17:28 Blood Pressure Position Sitting 11/20/21 07:45 Pulse Oximetry 95 11/21/21 19:15 Oxygen Delivery Method Nasal Cannula 11/21/21 19:15 Oxygen Flow Rate 1 11/21/21 19:15 Pain Level 0 11/21/21 17:28 Comment 11/21/21 19:15 Intake & Output 11/20/21 11/21/21 11/21/21 23:59 11:59 23:59 Intake Total 3030 / 3030 2194.167 / 3723.750 1529.583 / 3723.750 Output Total 1250 / 1250 2201 / 4069 1868 / 4069 Balance 1780 / 1780 -6.833 / -345.250 -338.417 / -345.250 Weight 70.307 kg 70.9 kg Intake: IV 1999 1954.167 / 2843.750 889.583 / 2843.750 Oral 1030 / 1030 240 / 880 640 / 880 Output: Urine 1250 / 1250 2200 / 4050 1850 / 4050 Post Void Residual Stool Other: Urine Color Yellow Yellow Yellow Urine Appearance Clear Clear Clear Urine Odor None None None Comment Void x1 in the toilet. patient state he feels as if he can void again Stool Size Moderate Stool Characteristics Formed Voiding Methods Urinal Urinal Data Completed and Pending Labs on day of discharge: Labs from last 24 hours 11/21/21 11/21/21 06:30 06:30 Sodium 136 Potassium 5.1 Chloride 106 Carbon Dioxide 19.1 L Anion Gap 10.9 BUN 69 H Creatinine 2.9 H D Estimated GFR/1.73 m2 21.81 Glucose 85 Calcium 8.4 L Magnesium 2.0 Iron 97 TIBC 283 Transferrin % Sat 34 Ferritin 112 Vitamin B12 1130 H Folate 11.0 PFSH All Active Problems Diverticulitis (Chronic) about 2004 .[facility] emergent with partial resection with colostomy colostomy reversed later that year no problems since Gout (Chronic) Alcohol abuse (Chronic) recurrent, hospitalized 2020 Essential hypertension (Acute) 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 This did resolve with conservative care did not require any further immediate intervention, hospitalized at [facility] Chronic kidney disease, stage 4 (severe) (Acute) Gallstone (Acute) Chronic alcoholic pancreatitis (Acute) Ruptured extensor tendon of hand or wrist (Acute) EPL left thumb Anemia in chronic kidney disease (CKD) (Acute) Lumbar spondylosis (Chronic) Reflux esophagitis (Chronic 09/24/95) GERD in excess of 20 years. on PPI that entire time ?esophageal stricture hx of Barretts Hyperlipidemia (Chronic) Medical History Alcohol abuse Gout History of basal cell cancer (~06/2019) Left ear Surgical History H/O partial resection of colon s/p ostomy reversal Replacement of total knee joint 2012-RIGHT STRESS TEST (~01/2003) Family History Mother Breast cancer Father Heart disease Hyperlipidemia Sister Alcohol abuse Depression Sister Alcohol abuse Sister No problems noted. Brother Hyperlipidemia Brother No problems noted. Brother No problems noted. Brother No problems noted. Brother No problems noted. Maternal Grandfather No problems noted. Paternal Grandfather Alcohol abuse Hyperlipidemia Maternal Grandmother Alcohol abuse Paternal Grandmother Hyperlipidemia Stroke Son Testicular cancer Son No problems noted. Son No problems noted. Son No problems noted. 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 Pets and animals: Yes Pets and animals: dog(s) Duration: > 90 minutes/day Frequency: daily Hoa/Catholic: Presybeterian Special hoa needs: No Do you feel safe at home: Yes Do you feel safe in your relationship?: Yes
[2021-11-22] MEDS: Heparin 5,000 UNITS/ML VIAL 5000 UNITS SC ×2 (00:16→08:19)
[2021-11-22 03:09] VITALS: BP 127/84; PULSE 79; RESP 18; TEMP 37.2; O2SAT 97
[2021-11-22 06:44] LABS: HCT 30.5 % (40.0-50.0); HGB 10.2 g/dL (13.5-17.5); MCH 30.6 pg (27.0-33.0); MCHC 33.4 % (32.0-36.0); MCV 92 fL (80-95); MPV 11.3 fL (8.0-11.0); Platelet Count 156 10^3/uL (130-400); RBC 3.33 10^6/uL (4.36-5.78); RDW 14.8 % (11.8-14.1); RDW-SD 49.9 fL; WBC 4.67 10^3/uL (4.4-10.8)
[2021-11-22 06:54] LABS: Anion Gap 7.4 mmol/L (3-11); BUN 41 mg/dL (7-18); CO2 23.6 mmol/L (21.0-32.0); Calcium 8.5 mg/dL (8.5-10.1); Chloride 103 mmol/L (98-107); Estimated GFR 33.49 (mL/min/1.73m2); Glucose 106 mg/dL (74-106); Magnesium 1.6 mg/dL (1.8-2.4); Potassium 4.3 mmol/L (3.5-5.1); Sodium 134 mmol/L (136-145)
[2021-11-22 07:27] VITALS: BP 142/84; PULSE 83; RESP 18; TEMP 37.1; O2SAT 100
[2021-11-22] MEDS: Lactated Ringers 1,000 ML 125 ML IV (08:14)
[2021-11-22] MEDS: Multivitamin TAB 1 TAB PO (08:18)
[2021-11-22] MEDS: amLODIPine 10 MG TAB PO (08:18)
[2021-11-22] MEDS: Omeprazole 20 MG CAPCR 40 MG PO (08:18)
[2021-11-22] MEDS: Metoprolol 25 MG TAB PO (08:18)
[2021-11-22] MEDS: Thiamine 100 MG TAB PO (08:19)
[2021-11-22] MEDS: Folic Acid 1 MG TAB PO (08:19)
[2021-11-22] MEDS: Vitamins B Comp w/C TAB 1 TAB PO (08:19)
--- NOTE | 2021-11-22 09:09 | CMDISCH_ITS ---
- If Service Date Differs Date of service: 11/22/21 Time of Service: 09:09 LACE Index Scoring Tool - Questions: Length of Stay (in days): 2 Acuity (Admit via E.D.?): Yes Comorbidities: Mild Liver/Renal Disease, Any Tumor E.D. Visits: 4 - Answers: Total Score: 14 Risk of Readmission: High Risk Care Management Discharge Reason for Hospitalization: Acute on Chronic Kidney Failure, Alcohol Withdrawal Discharge Plan: Discharge home via private vehicle with family. New RX's transmitted to [facility] in [facility]. Mathew met with [facility] and has a sponsor. Recommend close follow up with PCP, [facility] and sponsor. Mathew is also connected to , and will restart group therapy. Strongly recommend Mathew concider inpatient treatment to support goals, if needed. Patient/Family Education Needs: Review discharge instructions, limitations, medications and plan to follow up with community providers/resources (PCP, Cash Applications Clerk, Sponsor, AA. etc.) ask me three. Services Needed at Discharge: Outpatient Therapy ([facility] (Mathew will be followed by a girls swimming coach))
--- NOTE | 2021-11-22 10:00 | W.PM.DS.N ---
Date of service: 11/22/21 Time of Service: 10:01 DS: Diagnosis Discharge Diagnosis (1) Alcohol withdrawal: Status: Deleted (2) Acute kidney injury superimposed on chronic kidney disease: Status: Deleted (3) Alcohol abuse: Status: Deleted Discharge Plan Disposition Patient Disposition: HOME Condition: Fair Discharge Details Reason For Visit: Acute on Chronic Kidney Failure,Alcohol Abuse Admit Date/Time: 11/20/21 14:52 Admit Provider: Peg Everett Attending Provider: Peg Everett Primary Care Provider: Luis Lauren Hospital Course Hospital Course: Mathew came to [facility] ED yesterday asking for help with alcoholism. He has a long history of alcoholism and has been to rehab at [facility] twice in the past. He had a major surgery on his abdomen in June this year and states he started drinking again right after that. His states he has had 3 relapses in the past 10 months. He wants to go home and use his local resources, AA, he has a sponsor. He does not want to go to an in patient rehab or a local day program. He did not experience seizures, he did have irritability and was tremulous. His , Yen is in support of his sobriety; they plan to see a counselor together and separately as well. Yen is not convinced this is the best plan, but she knows he will not go to an inpatient facility and that this was a start to acknowledging there is an issue and maybe next time he'll go to an inpatient facility. He is discharged to home with her. Discussed with Dr Jaramillo Discharge and patient care took 60 min Home Meds and New Rx's Prescriptions: New multivitamin [Multiple Vitamins] Tablet 1 tab PO QAM Qty: 0 0RF folic acid 1 mg Tablet 1 mg PO QAM Qty: 0 0RF thiamine mononitrate (vit B1) 100 mg Tablet 100 mg PO QAM Qty: 30 0RF Continued vitamin B complex [B Complex-Vitamin B12] Tablet 1 tab PO DAILY metoprolol tartrate 25 mg tablet 25 mg PO BID Qty: 180 3RF amlodipine 10 mg tablet 10 mg PO DAILY Qty: 90 3RF omeprazole 40 mg capsule,delayed release(DR/EC) 40 mg PO DAILY Qty: 90 3RF Discontinued allopurinol 100 mg tablet 100 mg PO DAILY Qty: 90 3RF lisinopril 5 mg tablet See Rx Instructions .ROUTE .COMPLEX Qty: 90 3RF Dose Instruction: TAKE 1 TABLET BY MOUTH DAILY Rx Instructions: TAKE 1 TABLET BY MOUTH DAILY Discharge Instructions Instructions: Acute Kidney Injury (DC), Abuse of Alcohol (DC) Additional Instructions: Do not take Lisinopril until you follow up with your PCP. Stand Alone Forms: Nursing Discharge Form Referrals: Luis Lauren MD [Primary Care Provider] - 12/01/21 2:40 pm () Activity:: Activity as Tolerated Equipment/Supplies:: No Equipment Needed Diet:: Low Sodium Discharge Orders Discharge Orders: Discharge Order (Routine); Ordered 11/22/21 Ordered By: Dionne Keane Other Ambulatory Orders: Basic Metabolic Panel (Routine) Timeframe: 20211128 Location: None Selected Ordered By: Jena Lucero DS: Summary Time Spent with Patient providing and/or coordinating discharge services: Greater than 30 minutes Status at Discharge Functional status at discharge: independent ambulation Overall status at discharge: patient is back to baseline Mental Status: mental status grossly normal Speech and Movement: speech and movement normal Mood: congruent mood Affect: blunted Exam Const General: cooperative, comfortable, no acute distress, frail appearing and ill appearing (older appearing than stated age) chronically Nutritional Appearance: average body habitus Orientation: alert, awake and oriented x3 HENNH Head: normal to inspection, normocephalic and atraumatic Mouth: oral mucosae normal Chest Chest: normal inspection of the chest Resp Effort & Inspection: normal respiratory effort Auscultation: clear to auscultation bilaterally Cardio Rate: regular rate Rhythm: regular rhythm GI Inspection: distended Palpation: soft Auscultation: normal bowel sounds Skin General skin exam: no rashes or lesions noted Neuro General: patient alert, patient awake, patient oriented x3 and no focal motor deficits Cognition: normal cognition Extrem General: normal to inspection and full ROM Psych Mental Status: mental status grossly normal Speech and Movement: speech and movement normal Mood: congruent mood Affect: blunted DS: Data Vitals/I&O Vitals and I&O: Vital Signs Temperature 37.1 C 11/22/21 07:27 Temperature Source Tympanic 11/22/21 07:27 Pulse 83 11/22/21 07:27 Pulse Rhythm Regular 11/22/21 00:50 Respiratory Rate 18 11/22/21 07:27 Respiratory Effort Non-Labored 11/22/21 00:50 Respiratory Depth Normal 11/22/21 00:50 Respiratory Pattern Normal 11/22/21 00:50 Blood Pressure 142/84 H 11/22/21 07:27 Blood Pressure Position Sitting 11/20/21 07:45 Pulse Oximetry 100 11/22/21 07:27 Oxygen Delivery Method Room Air 11/22/21 07:27 Oxygen Flow Rate 0 11/22/21 07:27 Pain Level 0 11/22/21 07:27 Comment 11/21/21 19:15 Intake & Output 11/21/21 11/21/21 11/22/21 11:59 23:59 11:59 Intake Total 2194.167 / 4723.750 2529.583 / 4723.750 1000 / 1000 Output Total 2201 / 4769 2568 / 4769 1150 / 1150 Balance -6.833 / -45.250 -38.417 / -45.250 -150 / -150 Weight 70.9 kg Intake: IV 1954.167 / 3843.750 1889.583 / 3843.750 1000 / 1000 Oral 240 / 880 640 / 880 Output: Urine 2200 / 4750 2550 / 4750 1150 / 1150 Post Void Residual Stool Other: Urine Color Yellow Yellow Yellow Urine Appearance Clear Clear Clear Urine Odor None Normal Comment patient state he feels as if he can void again Stool Size Moderate Stool Characteristics Formed Voiding Methods Urinal Data Completed and Pending Labs on day of discharge: Labs from last 24 hours 11/22/21 11/22/21 06:26 06:26 WBC 4.67 RBC 3.33 L Hgb 10.2 L Hct 30.5 L MCV 92 MCH 30.6 MCHC 33.4 RDW 14.8 H Plt Count 156 MPV 11.3 H Sodium 134 L Potassium 4.3 Chloride 103 Carbon Dioxide 23.6 Anion Gap 7.4 BUN 41 H Creatinine 2.0 H Estimated GFR/1.73 m2 33.49 Glucose 106 Calcium 8.5 Magnesium 1.6 L PFSH All Active Problems Diverticulitis (Chronic) about 2004 .[facility] [place] emergent with partial resection with colostomy colostomy reversed later that year no problems since Gout (Chronic) Alcohol abuse (Chronic) recurrent, hospitalized 2020 Essential hypertension (Acute) 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 This did resolve with conservative care did not require any further immediate intervention, hospitalized at [facility] Chronic kidney disease, stage 4 (severe) (Acute) Gallstone (Acute) Chronic alcoholic pancreatitis (Acute) Ruptured extensor tendon of hand or wrist (Acute) EPL left thumb Anemia in chronic kidney disease (CKD) (Acute) Lumbar spondylosis (Chronic) Reflux esophagitis (Chronic 09/24/95) GERD in excess of 20 years. on PPI that entire time ?esophageal stricture hx of Barretts Hyperlipidemia (Chronic) Medical History Alcohol abuse Gout History of basal cell cancer (~06/2019) Left ear Surgical History H/O partial resection of colon s/p ostomy reversal Replacement of total knee joint 2012-RIGHT STRESS TEST (~01/2003) Family History Mother Breast cancer Father Heart disease Hyperlipidemia Sister Alcohol abuse Depression Sister Alcohol abuse Sister No problems noted. Brother Hyperlipidemia Brother No problems noted. Brother No problems noted. Brother No problems noted. Brother No problems noted. Maternal Grandfather No problems noted. Paternal Grandfather Alcohol abuse Hyperlipidemia Maternal Grandmother Alcohol abuse Paternal Grandmother Hyperlipidemia Stroke Son Testicular cancer Son No problems noted. Son No problems noted. Son No problems noted. 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 Pets and animals: Yes Pets and animals: dog(s) Duration: > 90 minutes/day Frequency: daily Hoa/Buddhism: Yazidism Special hoa needs: No Do you feel safe at home: Yes Do you feel safe in your relationship?: Yes
== END 2021-11-22 12:15 | disposition home or self-care (01) | DRG 897 ==
LOC: ER 08:13 → MS 15:40
PROVIDERS: Nurse Practitioner Family; Admitting Provider Internal Medicine; Emergency Provider Student in an Organized Health Care Education/Training Program; PCP Family Medicine; Visit Provider Internal Medicine
DX: F10.239 Alcohol dependence with withdrawal, unspecified (principal); N17.9 Acute kidney failure, unspecified; N18.4 Chronic kidney disease, stage 4 (severe); K86.0 Alcohol-induced chronic pancreatitis; I12.9 Hypertensive chronic kidney disease with stage 1 through stage 4 chronic kidney disease, or unspecified chronic kidney disease; E78.5 Hyperlipidemia, unspecified; M1A.9XX0 Chronic gout, unspecified, without tophus (tophi); D63.1 Anemia in chronic kidney disease; K21.9 Gastro-esophageal reflux disease without esophagitis; Z98.0 Intestinal bypass and anastomosis status; Z87.891 Personal history of nicotine dependence
CPT/HCPCS: 36415; 80048; 80053; 82550; 85027; 87635; 93005; 96360; 96361; 99285; 74176; 80320; 81003; 81015; 82607; 82728; 82746; 83540; 83550; 83605; 83735; 85025; 93010; 99232; 99239; J1644

== ENCOUNTER 2021-12-19 10:13 | Outpatient (CLI) | payer MEDICARE, SELFPAY ==
[2021-12-19 10:33] LABS: HGB 11.1 g/dL (13.5-17.5); MCH 31.3 pg (27.0-33.0); MCHC 33.6 % (32.0-36.0); MCV 93 fL (80-95); MPV 11.6 fL (8.0-11.0); Platelet Count 214 10^3/uL (130-400); RBC 3.55 10^6/uL (4.36-5.78); RDW 13.7 % (11.8-14.1); RDW-SD 47.3 fL; WBC 8.86 10^3/uL (4.4-10.8)
[2021-12-19 11:15] LABS: ALT 24 U/L (16-63); AST 15 U/L (15-37); Albumin 3.6 g/dL (3.4-5.0); Alkaline Phosphatase 85 U/L (46-116); Anion Gap 10.2 mmol/L (3-11); BUN 42 mg/dL (7-18); Bilirubin, Total 0.3 mg/dL (0.2-1.0); CO2 21.8 mmol/L (21.0-32.0); CREATININE 2.4 mg/dL (0.70-1.30); Calcium 8.5 mg/dL (8.5-10.1); Chloride 105 mmol/L (98-107); Estimated GFR 27.14 (mL/min/1.73m2); Glucose 110 mg/dL (74-106); Potassium 4.6 mmol/L (3.5-5.1); Sodium 137 mmol/L (136-145); Total Protein 7.3 g/dL (6.4-8.2)
== END 2021-12-19 10:14 | disposition home or self-care (01) ==
LOC: LBO 10:13
PROVIDERS: PCP Family Medicine; Visit Provider Family Medicine
DX: N18.4 Chronic kidney disease, stage 4 (severe) (principal); I10 Essential (primary) hypertension
CPT/HCPCS: 36415; 80053; 85027

== ENCOUNTER 2022-01-24 07:55 | Emergency (ER) | payer MEDICARE, SELFPAY ==
[2022-01-24] VITALS (8 sets, daily range): BP systolic 139–153; BP diastolic 91–95; PULSE 89–97; RESP 14–20; TEMP 36.8–36.9; O2SAT 95–99
--- NOTE | 2022-01-24 08:00 | RT.EKG_ITS ---
APPROVED REPORT Exam: Resting ECG Reason for Exam: ETOH withdrawal Patient Location: E HR:84 bpm ECG Measurements Heart Rate 84 AXIS WA 159 P 51 QRSd 100 QRS -8 QT 349 T 39 QTc 412 Conclusion Sinus rhythm...normal P axis, V-rate 60- 99
--- NOTE | 2022-01-24 08:11 | W.ED.GENAD ---
Discharge Plan Disposition Patient Disposition: HOME Condition: Improving Discharge Details Clinical Impression: Alcohol withdrawal Primary Care Provider: Luis Lauren ED Provider: Tico Joshi Home Meds and New Rx's Prescriptions: Continued vitamin B complex [B Complex-Vitamin B12] Tablet 1 tab PO DAILY omeprazole 40 mg capsule,delayed release(DR/EC) 40 mg PO DAILY PRN (Reason: acid reflux) Qty: 90 3RF triamcinolone acetonide 0.1 % cream 1 applic topical BID PRN (Reason: ankle eczema) Qty: 30 1RF metoprolol succinate 50 mg tablet extended release 24 hr 50 mg PO DAILY Qty: 90 3RF amlodipine 10 mg tablet 5 mg PO DAILY Qty: 90 3RF Rx Instructions: dose reduction 01/16/22 MS lisinopril 5 mg tablet 5 mg PO DAILY Qty: 1 0RF multivitamin [Multiple Vitamins] Tablet 1 tab PO QAM Qty: 0 0RF Discharge Instructions Instructions: Alcohol Withdrawal (ED) Additional Instructions: Work-up in the ER does not reveal any obvious emergent process and you are feeling well. Please watch for new or worsening symptoms and return to the ER for any concerns. Please follow instructions given to you by the curriculum coach. Please contact [facility] human services to discuss additional resources as well. Watch for new or worsening symptoms and return to the ER for any concerns. Lastly, I do recommend contacting your primary care provider to discuss your ER visit, relapse, need for outpatient reevaluation Medical Decision Making 66-year-old gentleman with a past sickle history of hypertension, CKD, alcohol abuse, presents for evaluation of alcohol withdrawal after relapsing from 2 months of sobriety, drink 1 pint of vodka over the past 3 days each day, now feeling slightly anxious and earlier today had some heart but he described as bounding, but denies any pain. Clinically he appears well, nontoxic. Blood pressure 152/92, pulse in the 90s, respirations 20, afebrile, O2 sat 98% on room air. No nausea or tremors. Clinically he appears without overt signs of withdrawal. He denies history of alcohol drawl seizures or DTs. Given his presentation will initiate cardiac work-up and will request that our curriculum coach team talked with the patient. He [facility] He does not appear as though he will meet admission criteria to our ICU for alcohol withdrawal. Patient states that he is here to be sure that everything else is okay, he was concerned that he had what he felt to be a bounding pulse and reported blood pressure that was elevated Laboratory values reveal a white blood cell count of 7.37 hemoglobin 11.5 hematocrit 33.4 platelet count 200. Coags unremarkable. Sodium at 128, he is receiving IV fluid. Potassium 4.3 creatinine 2.6 with a GFR of 26.21, this does appear to be near his baseline. Glucose 99, magnesium 1.9 troponin less than 50. TSH 2.15. Urinalysis without evidence of infection. Chest x-ray unremarkable. Patient spoke with the curriculum coach and he was also given resources for the [facility] human services team. Patient remains asymptomatic and hemodynamically stable. No signs of withdrawal. No chest pain. He is agreeable to awaiting a delta troponin Upon reevaluation patient is resting comfortably, wakes easily to verbal stimuli, remains asymptomatic. No evidence of significant withdrawal symptoms. Delta troponin remains less than 50. Standard discharge and return precautions were provided. Patient understands, is agreeable to this plan, and has no additional questions or concerns upon discharge. This documentation was generated using [employer] system, please disregard any oddities of phrase or misspellings. Medical Records Medical records reviewed: Yes I reviewed the patient's medical records. Imaging Data Radiologic Study: Attestation: I personally reviewed and interpreted this imaging study as follows: Imaging: X-Ray Radiologist's impression: Exam(s) XR CHEST 2V PA LATERAL EXAM: XR CHEST 2V PA LATERAL CLINICAL HISTORY: chest pain. TECHNIQUE: 2D digital imaging was performed. COMPARISON: CR,XR XR PORTABLE CHEST AP from 07/30/2021 FINDINGS: 2 views: Previously present hiatal hernia is no longer seen. There are surgical clips in the epigastric region now evident. Heart size is normal. The mediastinum is not widened. Lungs are clear. No infiltrates nor pleural effusions. IMPRESSION: No acute pulmonary findings. Lab Data Lab results reviewed: Yes I reviewed the patient's lab results. Labs: Laboratory Tests Range/Units 01/24/22 01/24/22 01/24/22 08:40 08:40 08:43 WBC (4.4-10.8) 10^3/uL RBC (4.36-5.78) 10^6/uL Hgb (13.5-17.5) g/dL Hct (40.0-50.0) % MCV (80-95) fL MCH (27.0-33.0) pg MCHC (32.0-36.0) % RDW (11.8-14.1) % Plt Count (130-400) 10^3/uL MPV (8.0-11.0) fL Immature Gran % Neutrophils % Lymphocytes % Monocytes % Eosinophils % Basophils % Nucleated RBC % (0.0-0.3) % Absolute Neutrophils (1.2-6.7) 10^3/uL Absolute Lymphocytes (1.2-3.4) 10^3/uL Absolute Monocytes (0.1-0.8) 10^3/uL Absolute Eosinophils (0.0-0.7) 10^3/uL Absolute Basophils (0.0-0.2) 10^3/uL PT (9.3-11.0) sec INR (0.9-1.1) APTT (21.0-27.5) sec Sodium (136-145) mmol/L 128 L Potassium (3.5-5.1) mmol/L 4.3 Chloride (98-107) mmol/L 99 Carbon Dioxide (21.0-32.0) mmol/L 20.0 L Anion Gap (3-11) mmol/L 9.0 BUN (7-18) mg/dL 37 H Creatinine (0.70-1.30) mg/dL 2.6 H Est GFR (CKD-EPI 2020) (mL/min/1.73m2) 26.21 Glucose (74-106) mg/dL 99 Calcium (8.5-10.1) mg/dL 8.8 Magnesium (1.8-2.4) mg/dL 1.9 Total Bilirubin (0.2-1.0) mg/dL 0.5 AST (15-37) U/L 26 ALT (16-63) U/L 18 Alkaline Phosphatase (46-116) U/L 114 Troponin I (<or=60) ng/L < 50 Total Protein (6.4-8.2) g/dL 8.0 Albumin (3.4-5.0) g/dL 3.9 TSH (0.36-3.74) uIU/mL 2.15 Urine Color (Yellow) Yellow Urine Clarity (Clear) Clear Urine pH (5-8) 6.0 Ur Specific [place] (1.005-1.025) 1.020 Urine Protein (Negative) mg/dL 100 H Urine Ketones (Negative) mg/dL Negative Urine Blood (Negative) Trace-intact H Urine Nitrite (Negative) Negative Urine Bilirubin (Negative) Negative Urine Urobilinogen (Up TO 0.2) EU/dL 0.2 Ur Leukocyte Esterase (Negative) Negative Urine RBC (0-2) HPF 0-2 Urine WBC (0-5) HPF Negative Ur Epithelial Cells (Negative) HPF Rare Urine Crystals (Negative) HPF Negative Urine Bacteria (Negative) HPF Negative Urine Casts (Negative) LPF 0-2 Hyaline Urine Mucus (Negative) Negative Ur Culture Indicated? No Urine Glucose (Negative) mg/dL Negative Urine Opiates Screen (Negative) Negative Urine Methadone Screen (Negative) Negative Ur Barbiturates Screen (Negative) Negative Ur Tricyclics Screen (Negative) Negative Ur Amphetamines Screen (Negative) Negative U Benzodiazepines Scrn (Negative) Negative Urine Cocaine Screen (Negative) Negative Ur THC Screen (Negative) Negative Ethyl Alcohol (<10) mg/dL < 3.0 Range/Units 01/24/22 01/24/22 01/24/22 08:43 08:43 08:43 WBC (4.4-10.8) 10^3/uL 7.37 RBC (4.36-5.78) 10^6/uL 3.72 L Hgb (13.5-17.5) g/dL 11.5 L Hct (40.0-50.0) % 33.4 L MCV (80-95) fL 90 MCH (27.0-33.0) pg 30.9 MCHC (32.0-36.0) % 34.4 RDW (11.8-14.1) % 13.2 Plt Count (130-400) 10^3/uL 200 MPV (8.0-11.0) fL 10.7 Immature Gran % 0.3 Neutrophils % 80.1 Lymphocytes % 9.1 Monocytes % 7.5 Eosinophils % 2.3 Basophils % 0.7 Nucleated RBC % (0.0-0.3) % 0.0 Absolute Neutrophils (1.2-6.7) 10^3/uL 5.91 Absolute Lymphocytes (1.2-3.4) 10^3/uL 0.67 L Absolute Monocytes (0.1-0.8) 10^3/uL 0.55 Absolute Eosinophils (0.0-0.7) 10^3/uL 0.17 Absolute Basophils (0.0-0.2) 10^3/uL 0.05 PT (9.3-11.0) sec 9.5 INR (0.9-1.1) 0.9 APTT (21.0-27.5) sec 27.0 Sodium (136-145) mmol/L Potassium (3.5-5.1) mmol/L Chloride (98-107) mmol/L Carbon Dioxide (21.0-32.0) mmol/L Anion Gap (3-11) mmol/L BUN (7-18) mg/dL Creatinine (0.70-1.30) mg/dL Est GFR (CKD-EPI 2020) (mL/min/1.73m2) Glucose (74-106) mg/dL Calcium (8.5-10.1) mg/dL Magnesium (1.8-2.4) mg/dL Total Bilirubin (0.2-1.0) mg/dL AST (15-37) U/L ALT (16-63) U/L Alkaline Phosphatase (46-116) U/L Troponin I (<or=60) ng/L Total Protein (6.4-8.2) g/dL Albumin (3.4-5.0) g/dL TSH (0.36-3.74) uIU/mL Urine Color (Yellow) Urine Clarity (Clear) Urine pH (5-8) Ur Specific [place] (1.005-1.025) Urine Protein (Negative) mg/dL Urine Ketones (Negative) mg/dL Urine Blood (Negative) Urine Nitrite (Negative) Urine Bilirubin (Negative) Urine Urobilinogen (Up TO 0.2) EU/dL Ur Leukocyte Esterase (Negative) Urine RBC (0-2) HPF Urine WBC (0-5) HPF Ur Epithelial Cells (Negative) HPF Urine Crystals (Negative) HPF Urine Bacteria (Negative) HPF Urine Casts (Negative) LPF Urine Mucus (Negative) Ur Culture Indicated? Urine Glucose (Negative) mg/dL Urine Opiates Screen (Negative) Urine Methadone Screen (Negative) Ur Barbiturates Screen (Negative) Ur Tricyclics Screen (Negative) Ur Amphetamines Screen (Negative) U Benzodiazepines Scrn (Negative) Urine Cocaine Screen (Negative) Ur THC Screen (Negative) Ethyl Alcohol (<10) mg/dL Cancelled Range/Units 01/24/22 01/24/22 08:43 11:30 WBC (4.4-10.8) 10^3/uL RBC (4.36-5.78) 10^6/uL Hgb (13.5-17.5) g/dL Hct (40.0-50.0) % MCV (80-95) fL MCH (27.0-33.0) pg MCHC (32.0-36.0) % RDW (11.8-14.1) % Plt Count (130-400) 10^3/uL MPV (8.0-11.0) fL Immature Gran % Neutrophils % Lymphocytes % Monocytes % Eosinophils % Basophils % Nucleated RBC % (0.0-0.3) % Absolute Neutrophils (1.2-6.7) 10^3/uL Absolute Lymphocytes (1.2-3.4) 10^3/uL Absolute Monocytes (0.1-0.8) 10^3/uL Absolute Eosinophils (0.0-0.7) 10^3/uL Absolute Basophils (0.0-0.2) 10^3/uL PT (9.3-11.0) sec INR (0.9-1.1) APTT (21.0-27.5) sec Sodium (136-145) mmol/L Potassium (3.5-5.1) mmol/L Chloride (98-107) mmol/L Carbon Dioxide (21.0-32.0) mmol/L Anion Gap (3-11) mmol/L BUN (7-18) mg/dL Creatinine (0.70-1.30) mg/dL Est GFR (CKD-EPI 2020) (mL/min/1.73m2) Glucose (74-106) mg/dL Calcium (8.5-10.1) mg/dL Magnesium (1.8-2.4) mg/dL Total Bilirubin (0.2-1.0) mg/dL AST (15-37) U/L ALT (16-63) U/L Alkaline Phosphatase (46-116) U/L Troponin I (<or=60) ng/L < 50 Total Protein (6.4-8.2) g/dL Albumin (3.4-5.0) g/dL TSH (0.36-3.74) uIU/mL Cancelled Urine Color (Yellow) Urine Clarity (Clear) Urine pH (5-8) Ur Specific [place] (1.005-1.025) Urine Protein (Negative) mg/dL Urine Ketones (Negative) mg/dL Urine Blood (Negative) Urine Nitrite (Negative) Urine Bilirubin (Negative) Urine Urobilinogen (Up TO 0.2) EU/dL Ur Leukocyte Esterase (Negative) Urine RBC (0-2) HPF Urine WBC (0-5) HPF Ur Epithelial Cells (Negative) HPF Urine Crystals (Negative) HPF Urine Bacteria (Negative) HPF Urine Casts (Negative) LPF Urine Mucus (Negative) Ur Culture Indicated? Urine Glucose (Negative) mg/dL Urine Opiates Screen (Negative) Urine Methadone Screen (Negative) Ur Barbiturates Screen (Negative) Ur Tricyclics Screen (Negative) Ur Amphetamines Screen (Negative) U Benzodiazepines Scrn (Negative) Urine Cocaine Screen (Negative) Ur THC Screen (Negative) Ethyl Alcohol (<10) mg/dL ECG Data Attestation: I personally reviewed and interpreted this ECG (s) as follows: Interpretation: Sinus rhythm, ventricular rate 84. No STEMI. HPI General Mode of arrival: ambulatory. Date/Time Provider Initiated Documentation: 01/24/22 08:02. Limitations to Documentation: no limitations. Information obtained by: patient and family. HPI Narrative: This is a 66-year-old gentleman, past medical history of of alcohol abuse, gout, hypertension, CKD, presenting to the ER reporting that he relapsed with alcohol after being sober for approximately 2 months, last drink was yesterday around 4 PM, now feeling as though he is going through some withdrawals. He states that last night he was feeling anxious, his heart rate was quick, and bounding. He reports mild nausea but that has resolved completely. He noticed his blood pressure at home being elevated at 167/103. Patient feels as though he cannot deal with the alcohol withdrawal on his own but he would like to be sure that there is nothing else currently wrong. He denies history of alcohol withdrawal seizures, DTs, etc. Patient states that he does have a curriculum coach but has not talked with them in nearly a week. He states that he has been admitted to [place] for inpatient alcohol withdrawal treatment plan in the past and he does not feel as though that this is necessary today. He states that he began drinking a pint of vodka on Saturday and subsequently drank the same on Saturday and Saturday secondary to increased stress. He denies recent illness or trauma. Denies any headache, visual changes, neck pain, chest pain, shortness of breath, abdominal pain, diarrhea. Related Data Home Medications Medication Instructions Recorded Confirmed vitamin B complex (B 1 tab PO DAILY 08/09/20 01/24/22 Complex-Vitamin B12 tablet) multivitamin (Multiple Vitamins 1 tab PO QAM #0 tabs 11/21/21 01/24/22 tablet) lisinopril 5 mg tablet 5 mg PO DAILY #1 tab 12/01/21 01/24/22 amlodipine 10 mg tablet 5 mg PO DAILY #90 tabs 01/16/22 01/24/22 metoprolol succinate 50 mg 50 mg PO DAILY #90 tabs 01/16/22 01/24/22 tablet,extended release 24 hr omeprazole 40 mg capsule,delayed 40 mg PO DAILY PRN acid reflux #90 01/16/22 01/24/22 release caps triamcinolone acetonide 0.1 % 1 applic topical BID PRN ankle 01/16/22 01/24/22 topical cream eczema #30 grams Previous Rx's Medication Instructions Recorded multivitamin (Multiple Vitamins 1 tab PO QAM #0 tabs 11/21/21 tablet) lisinopril 5 mg tablet 5 mg PO DAILY #1 tab 12/01/21 amlodipine 10 mg tablet 5 mg PO DAILY #90 tabs 01/16/22 metoprolol succinate 50 mg 50 mg PO DAILY #90 tabs 01/16/22 tablet,extended release 24 hr omeprazole 40 mg capsule,delayed 40 mg PO DAILY PRN acid reflux #90 01/16/22 release caps triamcinolone acetonide 0.1 % 1 applic topical BID PRN ankle 01/16/22 topical cream eczema #30 grams Allergies Allergy/AdvReac Type Severity Reaction Status Date / Time morphine Allergy Intermediate HIVES/RASH Verified 01/24/22 08:07 General Stated Complaint: ETOHWithdr VICTORIA: 3 Review of Systems Constitutional Constitutional: Denies fatigue, Denies fever(s), Denies headache(s) and Denies weakness Eyes Eyes: Denies change in vision ENT Ears, Nose, Mouth, and Throat: Denies headache(s) and Denies neck pain Cardiovascular Cardiovascular: Denies chest pain, Reports palpitations and Denies dyspnea Respiratory Respiratory: Denies cough and Denies dyspnea Gastrointestinal Gastrointestinal: Denies abdominal pain, Reports nausea and Denies vomiting Musculoskeletal Musculoskeletal: Denies back pain, Denies neck pain, Denies numbness and Denies tingling Integumentary/Breasts Skin/Breast: Denies rash Neurologic Neurologic: Denies headache(s), Denies numbness, Denies tingling and Denies weakness Psychiatric Psychiatric: Reports other (stress) Endocrine Endocrine: Denies fatigue and Reports palpitations PFSH All Active Problems (Updated 01/24/22 @ 12:08 by ARMANDO Strong) Alcohol withdrawal (Acute) Hand or foot spasms (Acute) Obstructive sleep apnea (Chronic) Acute kidney injury (Acute) 10/2021-associated with acute illness/dehydration Diverticulitis (Chronic) about 2004 .[facility] [place] emergent with partial resection with colostomy colostomy reversed later that year no problems since Alcohol abuse (Chronic) recurrent, hospitalized 2020 Essential hypertension (Acute) 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 This did resolve with conservative care did not require any further immediate intervention, hospitalized at [facility] Chronic kidney disease, stage 4 (severe) (Acute) 2021, Cr -2.1-2.9 Gallstone (Acute) Chronic alcoholic pancreatitis (Acute) Ruptured extensor tendon of hand or wrist (Acute) EPL left thumb Anemia in chronic kidney disease (CKD) (Acute) Lumbar spondylosis (Chronic) Reflux esophagitis (Chronic 09/24/95) GERD in excess of 20 years. on PPI that entire time ?esophageal stricture hx of Barretts Hyperlipidemia (Chronic) Medical History Alcohol abuse Gout History of basal cell cancer (~06/2019) Left ear Surgical History H/O partial resection of colon s/p ostomy reversal Replacement of total knee joint 2013-RIGHT STRESS TEST (~01/2003) Family History Mother Breast cancer Father Heart disease Hyperlipidemia Sister Alcohol abuse Depression Sister Alcohol abuse Sister No problems noted. Brother Hyperlipidemia Brother No problems noted. Brother No problems noted. Brother No problems noted. Brother No problems noted. Maternal Grandfather No problems noted. Paternal Grandfather Alcohol abuse Hyperlipidemia Maternal Grandmother Alcohol abuse Paternal Grandmother Hyperlipidemia Stroke Son Testicular cancer Son No problems noted. Son No problems noted. Son No problems noted. Social History Smoking/Tobacco Use Status: Former Tobacco Use tobacco type: cigarettes Quit Date: 05/27/73 Second Hand Exposure: No Smoking risk assessment performed?: Yes Alcohol Intake: current Alcohol Intake frequency: 0-2 drinks per day Alcohol type: hard liquor Counseling given: Yes Drug use: Never Substance use type: does not use Details: no longer drinks - goes to AA meetings Household members: spouse current occupation: [employer] Pets and animals: Yes Pets and animals: dog(s) Duration: > 90 minutes/day Frequency: daily Hoa/Restorationism: Zoroastrian Special hoa needs: No Do you feel safe at home: Yes Do you feel safe in your relationship?: Yes Exam Const General: cooperative, healthy appearing, comfortable and no acute distress Orientation: alert, awake and oriented x3 [facility] Head: normal to inspection, normocephalic and atraumatic Face and sinus: normal facial exam Mouth: moist mucous membranes Throat: posterior oropharynx normal Eyes General: appearance normal, both eyes and all related structures Conjunctivae: conjunctivae normal Neck Neck: normal visual inspection, full ROM, meningismus present, trachea midline and supple Resp Effort & Inspection: normal respiratory effort and able to speak in complete sentences Auscultation: clear to auscultation bilaterally Cardio Rate: regular rate Rhythm: regular rhythm GI Palpation: soft, not firm, no guarding and nontender Back/Spine/Pelvis Back: No back tenderness Skin General skin exam: no rashes or lesions noted Neuro General: patient alert, patient awake, patient oriented x3, moves all extremities and no focal motor deficits Cognition: normal cognition Speech: speech normal Gait: normal gait Motor: muscle tone normal throughout Sensory Exam: no sensory deficits noted Extrem General: normal to inspection, full ROM and capillary refill normal Psych Appearance: grossly normal Mental Status: mental status grossly normal Course Vital Signs Vital signs: Vital Signs Temperature 36.8 C 01/24/22 08:04 Pulse 97 H 01/24/22 08:04 Respiratory Rate 20 01/24/22 08:04 Blood Pressure 152/92 H 01/24/22 08:04 Pulse Oximetry 98 01/24/22 08:04 Temperature 36.8 C 01/24/22 08:04 Temperature Source Temporal Artery Scan 01/24/22 08:04 Pulse 97 H 01/24/22 08:04 Respiratory Rate 20 01/24/22 08:04 Respiratory Effort 01/24/22 08:07 Blood Pressure 152/92 H 01/24/22 08:04 Blood Pressure Position Sitting 01/24/22 08:04 Pulse Oximetry 98 01/24/22 08:04 Oxygen Delivery Method Room Air 01/24/22 08:04 Oxygen Flow Rate 0 01/24/22 08:04 Pain Level 0 01/24/22 08:04 PAWSS Have you Been Recently Intoxicated or Drunk Within the Last 30 days?: Yes Have you Ever Experienced Previous Episodes of Alcohol Withdrawal?: Yes Have you ever Experienced Withdrawal Seizures?: No Have you ever Experienced Delirium Tremens(DT)s?: Yes Have you ever undergone Alcohol Rehabilitation Treatment (i.e, inpt ot outpatient treatment programs)?: Yes Have you ever Experienced Blackouts?: No Have you ever Combined Alcohol with other Downers within the last 90 days?: No Have you ever Combined Alcohol with any other Substance of Abuse during the last 90 days?: No Positive Blood Alcohol level on Presentation? [PCS.BAL]: No Evidence of Increased Autonomic Activity (i.e. HR>120, tremor, sweating, agitation, nausea)?: No Result: 4
--- NOTE | 2022-01-24 08:15 | DI.RAD_ITS ---
Exam(s) XR CHEST 2V PA LATERAL EXAM: XR CHEST 2V PA LATERAL CLINICAL HISTORY: chest pain. TECHNIQUE: 2D digital imaging was performed. COMPARISON: CR,XR XR PORTABLE CHEST AP from 07/30/2021 FINDINGS: 2 views: Previously present hiatal hernia is no longer seen. There are surgical clips in the epigastric regio n now evident. Heart size is normal. The mediastinum is not widened. Lungs are clear. No infiltrates nor pleural effusions. IMPRESSION: No acute pulmonary findings. DATA REPOSITORY: RADIATION DOSE DELIVERED:
[2022-01-24 08:47] LABS: Bilirubin Negative (Negative); Blood Trace-intact (Negative); Clarity Clear (Clear); Glucose Negative (Negative); Ketones Negative (Negative); Leukocyte Esterase Negative (Negative); Nitrite Negative (Negative); Urobilinogen 0.2 EU/dL (Up TO 0.2)
[2022-01-24 08:55] LABS: Abs Immature Grans 0.02 10^3/uL (0.0-0.06); Absolute Basophil Count 0.05 10^3/uL (0.0-0.2); Absolute Eosinophil Count 0.17 10^3/uL (0.0-0.7); Absolute Lymphocyte Count 0.67 10^3/uL (1.2-3.4); Absolute Monocyte Count 0.55 10^3/uL (0.1-0.8); Absolute Neutrophil Count 5.91 10^3/uL (1.2-6.7); Basophils % 0.7; Eosinophils % 2.3; HCT 33.4 % (40.0-50.0); HGB 11.5 g/dL (13.5-17.5); Immature Grans % 0.3; Lymphocytes % 9.1; MCH 30.9 pg (27.0-33.0); MCHC 34.4 % (32.0-36.0); MCV 90 fL (80-95); MPV 10.7 fL (8.0-11.0); Monocytes % 7.5; Neutrophils % 80.1; Platelet Count 200 10^3/uL (130-400); RBC 3.72 10^6/uL (4.36-5.78); RDW 13.2 % (11.8-14.1); RDW-SD 43.2 fL; WBC 7.37 10^3/uL (4.4-10.8)
[2022-01-24 08:56] LABS: Bacteria Negative HPF (Negative); C & S Indicated? No; Casts 0-2 Hyaline LPF (Negative); Crystals Negative HPF (Negative); Epithelial Cells Rare HPF (Negative); Mucus Negative (Negative); RBC 0-2 HPF (0-2); WBC Negative HPF (0-5)
[2022-01-24 09:00] LABS: *AMPHETAMINES SCREEN URINE Negative (Negative); *BARBITURATES SCREEN URINE Negative (Negative); *BENZODIAZEPINES SCREEN URINE Negative (Negative); Cannabinoids THC Negative (Negative); Cocaine Screen,Urine Negative (Negative); METHADONE URINE SCREEN Negative (Negative); OPIATES URINE SCREEN Negative (Negative)
[2022-01-24] MEDS: Normal Saline 1,000 ML 1000 ML IV (09:13)
[2022-01-24 09:15] LABS: Tricyclic Antidepressants Negative (Negative)
[2022-01-24 09:16] LABS: INR 0.9 (0.9-1.1); Prothrombin Time 9.5 sec (9.3-11.0)
[2022-01-24 09:31] LABS: ALT 18 U/L (16-63); AST 26 U/L (15-37); Albumin 3.9 g/dL (3.4-5.0); Alkaline Phosphatase 114 U/L (46-116); BUN 37 mg/dL (7-18); Bilirubin, Total 0.5 mg/dL (0.2-1.0); CREATININE 2.6 mg/dL (0.70-1.30); Calcium 8.8 mg/dL (8.5-10.1); Chloride 99 mmol/L (98-107); Estimated GFR 26.21 (mL/min/1.73m2); Glucose 99 mg/dL (74-106); Magnesium 1.9 mg/dL (1.8-2.4); Potassium 4.3 mmol/L (3.5-5.1); Sodium 128 mmol/L (136-145); TSH (W/Ref FT4) 2.15 uIU/mL (0.36-3.74); Troponin I < 50 ng/L (<or=60)
[2022-01-24 09:34] LABS: ETHANOL BLOOD < 3.0 mg/dL (<10)
[2022-01-24 11:53] LABS: Troponin I < 50 ng/L (<or=60)
== END 2022-01-24 12:42 | disposition home or self-care (01) ==
PROVIDERS: Emergency Provider Physician Assistant; PCP Family Medicine
DX: F10.239 Alcohol dependence with withdrawal, unspecified (principal); R11.0 Nausea; I12.9 Hypertensive chronic kidney disease with stage 1 through stage 4 chronic kidney disease, or unspecified chronic kidney disease; N18.9 Chronic kidney disease, unspecified; F41.9 Anxiety disorder, unspecified; Y90.0 Blood alcohol level of less than 20 mg/100 ml; Z87.891 Personal history of nicotine dependence; Z79.899 Other long term (current) drug therapy
CPT/HCPCS: 36415; 80053; 80307; 93005; 96360; 99284; 71046; 80320; 81003; 81015; 83735; 84443; 84484; 85025; 85610; 85730; 93010; 99285

== ENCOUNTER 2022-02-16 05:46 | Emergency (ER) | payer MEDICARE, SELFPAY ==
[2022-02-16] VITALS (16 sets, daily range): BP systolic 119–148; BP diastolic 77–107; PULSE 79–99; RESP 12–26; TEMP 36.8; O2SAT 90–99
--- NOTE | 2022-02-16 06:00 | RT.EKG_ITS ---
APPROVED REPORT Exam: Resting ECG Reason for Exam: chest pain Patient Location: E HR:91 bpm ECG Measurements Heart Rate 91 AXIS PA 165 P 46 QRSd 104 QRS -2 QT 347 T 30 QTc 426 Conclusion Sinus rhythm...normal P axis, V-rate 60- 99
--- NOTE | 2022-02-16 06:04 | W.ED.GENAD ---
Discharge Plan Disposition Patient Disposition: HOME Condition: Stable Discharge Details Clinical Impression: Alcohol abuse, Nausea & vomiting Primary Care Provider: Luis Luaren ED Provider: Nilo Otto [place] Meds and New Rx's Prescriptions: New ondansetron 4 mg tablet,disintegrating 4 mg PO Q8H PRN (Reason: nausea and vomiting) Qty: 30 0RF lorazepam 1 mg tablet 1 mg PO TID PRN (Reason: anxiety) Qty: 10 0RF Continued vitamin B complex [B Complex-Vitamin B12] Tablet 1 tab PO DAILY omeprazole 40 mg capsule,delayed release(DR/EC) 40 mg PO DAILY PRN (Reason: acid reflux) Qty: 90 3RF triamcinolone acetonide 0.1 % cream 1 applic topical BID PRN (Reason: ankle eczema) Qty: 30 1RF metoprolol succinate 50 mg tablet extended release 24 hr 50 mg PO DAILY Qty: 90 3RF amlodipine 10 mg tablet 5 mg PO DAILY Qty: 90 3RF Rx Instructions: dose reduction 01/16/22 MS lisinopril 5 mg tablet 5 mg PO DAILY Qty: 90 3RF multivitamin [Multiple Vitamins] Tablet 1 tab PO QAM Qty: 0 0RF Discharge Instructions Instructions: Abuse of Alcohol (ED) Additional Instructions: avoid drinking alcohol while using the lorazepam continue to reach out to rehab facilities follow up with your primary care provider within 1-2 weeks if you feel more ill, have persistent vomit or severe pain return to the emergency department Medical Decision Making 66 yo male with hx of htn, ckd, alcohol abuse, who comes in with one day of n/v and feeling dehydrated and feels he is withdrawing from alcohol. He states he has been drinking over 15oz of vodka a day, last had alcohol yesterday morning and decided to stop drinking, then subsequently during the day started to feel jittery and started to have n/v. He also noted some chest tightness he states normally happens when he starts to have withdrawals, denies ever having seizures or dt's. He arrives stable, no significant htn or tachycardia or tremors on exam, does appear mildly anxious. He is caox4 speaking clearly and is clinically sober. He has no focal motor deficitis, no signs of trauma, soft nontender abdomen. Suspect mild alcohol withdrawal, will obtain ekg, troponin given his reported chest tightness, cbc, cmp, mag level and treat with zofran and ativan and reassess. patient's labs unremarkable, no significant changes from baseline. He feels significantly better after zofran and ativan states he no longer feels anxious. He is motivated to go to rehab and has already been in contact with facilities. He did request small course of ativan to help his symptoms and discussed risks of drinking with this and voices understanding of these risks and states he will not drink alcohol with the medicine. Will have him f/u with his pcp and return precautions given. Given his chest tightness started yesterday do not feel delta troponin indicated. Differential Diagnosis Differential Diagnosis: alcohol abuse, alcohol withdrawal, anxiety Medical Records Medical records reviewed: Yes I reviewed the patient's medical records. Lab Data Lab results reviewed: Yes I reviewed the patient's lab results. ECG Data Attestation: I personally reviewed and interpreted this ECG (s) as follows: Prior ECG tracings: available for review Interpretation: sinus rhythm, rate of 91, no acute st t wave ischemic findings HPI General Mode of arrival: ambulatory. Date/Time Provider Initiated Documentation: 02/16/22 05:47. Limitations to Documentation: no limitations. Information obtained by: patient. History of Present Illness 66 year old M presents to the emergency department with the chief complaint of feels dehydrated, described as moderate, Patient started experiencing this day(s) (1) and it has been constant. No relieving factors improve symptom(s), No exacerbating factors reported . Patient notes nausea/vomiting. Patient did receive the following treatments prior to arrival, none Related Data Home Medications Medication Instructions Recorded Confirmed vitamin B complex (B 1 tab PO DAILY 08/09/20 01/24/22 Complex-Vitamin B12 tablet) multivitamin (Multiple Vitamins 1 tab PO QAM #0 tabs 11/21/21 01/24/22 tablet) amlodipine 10 mg tablet 5 mg PO DAILY #90 tabs 01/16/22 01/24/22 metoprolol succinate 50 mg 50 mg PO DAILY #90 tabs 01/16/22 01/24/22 tablet,extended release 24 hr omeprazole 40 mg capsule,delayed 40 mg PO DAILY PRN acid reflux #90 01/16/22 01/24/22 release caps triamcinolone acetonide 0.1 % 1 applic topical BID PRN ankle 01/16/22 01/24/22 topical cream eczema #30 grams lisinopril 5 mg tablet 5 mg PO DAILY #90 tabs 02/12/22 lorazepam 1 mg tablet 1 mg PO TID PRN anxiety #10 tabs 02/16/22 ondansetron 4 mg disintegrating 4 mg PO Q8H PRN nausea and 02/16/22 tablet vomiting #30 tabs Previous Rx's Medication Instructions Recorded multivitamin (Multiple Vitamins 1 tab PO QAM #0 tabs 11/21/21 tablet) amlodipine 10 mg tablet 5 mg PO DAILY #90 tabs 01/16/22 metoprolol succinate 50 mg 50 mg PO DAILY #90 tabs 01/16/22 tablet,extended release 24 hr omeprazole 40 mg capsule,delayed 40 mg PO DAILY PRN acid reflux #90 01/16/22 release caps triamcinolone acetonide 0.1 % 1 applic topical BID PRN ankle 01/16/22 topical cream eczema #30 grams lisinopril 5 mg tablet 5 mg PO DAILY #90 tabs 02/12/22 lorazepam 1 mg tablet 1 mg PO TID PRN anxiety #10 tabs 02/16/22 ondansetron 4 mg disintegrating 4 mg PO Q8H PRN nausea and 02/16/22 tablet vomiting #30 tabs Allergies Allergy/AdvReac Type Severity Reaction Status Date / Time morphine Allergy Intermediate HIVES/RASH Verified 02/16/22 05:56 General Stated Complaint: ETOHWithdr VICTORIA: 3 Review of Systems All systems reviewed & are unremarkable except as noted in HPI and below Constitutional Constitutional: Denies chills, Denies fever(s) and Denies weakness Cardiovascular Cardiovascular: Denies chest pain and Denies dyspnea Respiratory Respiratory: Denies cough and Denies dyspnea Gastrointestinal Gastrointestinal: Denies abdominal pain Neurologic Neurologic: Denies weakness PFSH All Active Problems (Updated 02/16/22 @ 06:59 by Nilo Otto MD) Alcohol withdrawal (Acute) Nausea & vomiting (Acute) Hand or foot spasms (Acute) Obstructive sleep apnea (Chronic) Acute kidney injury (Acute) 10/2021-associated with acute illness/dehydration Diverticulitis (Chronic) about 2004 .[facility] emergent with partial resection with colostomy colostomy reversed later that year no problems since Alcohol abuse (Chronic) recurrent, hospitalized 2020 Essential hypertension (Acute) 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 This did resolve with conservative care did not require any further immediate intervention, hospitalized at [facility] Chronic kidney disease, stage 4 (severe) (Acute) 2021, Cr -2.1-2.9 Gallstone (Acute) Chronic alcoholic pancreatitis (Acute) Ruptured extensor tendon of hand or wrist (Acute) EPL left thumb Anemia in chronic kidney disease (CKD) (Acute) Lumbar spondylosis (Chronic) Reflux esophagitis (Chronic 09/24/95) GERD in excess of 20 years. on PPI that entire time ?esophageal stricture hx of Barretts Hyperlipidemia (Chronic) Medical History Alcohol abuse Gout History of basal cell cancer (~06/2019) Left ear Surgical History H/O partial resection of colon s/p ostomy reversal Replacement of total knee joint 2012-RIGHT STRESS TEST (~01/2003) Family History Mother Breast cancer Father Heart disease Hyperlipidemia Sister Alcohol abuse Depression Sister Alcohol abuse Sister No problems noted. Brother Hyperlipidemia Brother No problems noted. Brother No problems noted. Brother No problems noted. Brother No problems noted. Maternal Grandfather No problems noted. Paternal Grandfather Alcohol abuse Hyperlipidemia Maternal Grandmother Alcohol abuse Paternal Grandmother Hyperlipidemia Stroke Son Testicular cancer Son No problems noted. Son No problems noted. Son No problems noted. Social History Smoking/Tobacco Use Status: Former Tobacco Use tobacco type: cigarettes Quit Date: 05/27/73 Second Hand Exposure: No Smoking risk assessment performed?: Yes Alcohol Intake: current Alcohol Intake frequency: 0-2 drinks per day Alcohol type: hard liquor Counseling given: Yes Drug use: Never Substance use type: does not use Details: no longer drinks - goes to AA meetings Household members: spouse current occupation: [employer] Pets and animals: Yes Pets and animals: dog(s) Duration: > 90 minutes/day Frequency: daily Hoa/Judaism: Lutheran Special hoa needs: No Do you feel safe at home: Yes Do you feel safe in your relationship?: Yes Exam Const General: no acute distress and anxious Orientation: alert HENDC Head: normal to inspection Ears: external ears normal General nose exam: external nose normal Mouth: moist mucous membranes Eyes General: appearance normal, both eyes and all related structures Neck Neck: normal visual inspection Resp Effort & Inspection: normal respiratory effort and able to speak in complete sentences Cardio Rate: regular rate GI Palpation: soft and nontender Skin General skin exam: no rashes or lesions noted Neuro General: patient alert and patient oriented x3 Extrem General: normal to inspection Psych Mental Status: mental status grossly normal Course Vital Signs Vital signs: Vital Signs Temperature 36.8 C 02/16/22 05:53 Pulse 95 H 02/16/22 05:53 Respiratory Rate 18 02/16/22 05:53 Blood Pressure 148/100 H 02/16/22 05:53 Pulse Oximetry 99 02/16/22 05:53 Temperature 36.8 C 02/16/22 05:53 Temperature Source Skin 02/16/22 05:53 Pulse 95 H 02/16/22 05:53 Respiratory Rate 18 02/16/22 05:53 Respiratory Effort Non-Labored 02/16/22 05:56 Blood Pressure 148/100 H 02/16/22 05:53 Pulse Oximetry 99 02/16/22 05:53 Pain Level 7 02/16/22 05:53 PAWSS Have you Been Recently Intoxicated or Drunk Within the Last 30 days?: Yes Have you Ever Experienced Previous Episodes of Alcohol Withdrawal?: Yes Have you ever Experienced Withdrawal Seizures?: No Have you ever Experienced Delirium Tremens(DT)s?: Yes Have you ever undergone Alcohol Rehabilitation Treatment (i.e, inpt ot outpatient treatment programs)?: Yes Have you ever Experienced Blackouts?: Yes Have you ever Combined Alcohol with other Downers within the last 90 days?: No Have you ever Combined Alcohol with any other Substance of Abuse during the last 90 days?: No Positive Blood Alcohol level on Presentation? [PCS.BAL]: No Evidence of Increased Autonomic Activity (i.e. HR>120, tremor, sweating, agitation, nausea)?: Yes Result: 6
[2022-02-16 06:12] LABS: Abs Immature Grans 0.03 10^3/uL (0.0-0.06); Absolute Basophil Count 0.05 10^3/uL (0.0-0.2); Absolute Eosinophil Count 0.24 10^3/uL (0.0-0.7); Absolute Lymphocyte Count 0.51 10^3/uL (1.2-3.4); Absolute Monocyte Count 0.44 10^3/uL (0.1-0.8); Absolute Neutrophil Count 4.64 10^3/uL (1.2-6.7); Basophils % 0.8; Eosinophils % 4.1; HCT 34.7 % (40.0-50.0); HGB 11.4 g/dL (13.5-17.5); Immature Grans % 0.5; Lymphocytes % 8.6; MCH 30.4 pg (27.0-33.0); MCHC 32.9 % (32.0-36.0); MCV 93 fL (80-95); MPV 10.6 fL (8.0-11.0); Monocytes % 7.4; Neutrophils % 78.6; Platelet Count 198 10^3/uL (130-400); RBC 3.75 10^6/uL (4.36-5.78); RDW 14.6 % (11.8-14.1); RDW-SD 50.2 fL; WBC 5.91 10^3/uL (4.4-10.8)
[2022-02-16] MEDS: LORazepam 20 MG/10 ML VIAL IVP (06:20)
[2022-02-16] MEDS: Normal Saline 1,000 ML 1000 ML IV (06:20)
[2022-02-16] MEDS: THIAMINE 100 MG in Normal Saline 100 ML 200 MG IVPB (06:21)
[2022-02-16] MEDS: Ondansetron 4 MG/2 ML VIAL IVP (06:21)
[2022-02-16 06:30] LABS: ALT 20 U/L (16-63); AST 20 U/L (15-37); Albumin 3.7 g/dL (3.4-5.0); Alkaline Phosphatase 112 U/L (46-116); Anion Gap 14.4 mmol/L (3-11); BUN 45 mg/dL (7-18); Bilirubin, Total 0.5 mg/dL (0.2-1.0); CO2 19.6 mmol/L (21.0-32.0); CREATININE 2.6 mg/dL (0.70-1.30); Chloride 102 mmol/L (98-107); Estimated GFR 26.21 (mL/min/1.73m2); Glucose 106 mg/dL (74-106); Potassium 4.5 mmol/L (3.5-5.1); Sodium 136 mmol/L (136-145); Total Protein 7.5 g/dL (6.4-8.2); Troponin I < 50 ng/L (<or=60)
[2022-02-16 06:49] LABS: ETHANOL BLOOD < 3.0 mg/dL (<10)
== END 2022-02-16 17:12 | disposition home or self-care (01) ==
PROVIDERS: Emergency Provider Emergency Medicine; PCP Family Medicine
DX: F10.10 Alcohol abuse, uncomplicated (principal); Y90.0 Blood alcohol level of less than 20 mg/100 ml; R11.2 Nausea with vomiting, unspecified; I12.9 Hypertensive chronic kidney disease with stage 1 through stage 4 chronic kidney disease, or unspecified chronic kidney disease; N18.9 Chronic kidney disease, unspecified; R07.89 Other chest pain; Z87.891 Personal history of nicotine dependence
CPT/HCPCS: 80053; 93005; 96361; 96365; 96375; 99284; 80320; 83735; 84484; 85025; 93010; J2405; J3490

== ENCOUNTER 2022-05-02 16:15 | Outpatient (REF) | payer MEDICARE, SELFPAY ==
[2022-05-02 15:13] LABS: Abs Immature Grans 0.02 10^3/uL (0.0-0.06); Absolute Basophil Count 0.09 10^3/uL (0.0-0.2); Absolute Eosinophil Count 1.21 10^3/uL (0.0-0.7); Absolute Lymphocyte Count 0.88 10^3/uL (1.2-3.4); Absolute Monocyte Count 0.61 10^3/uL (0.1-0.8); Absolute Neutrophil Count 4.28 10^3/uL (1.2-6.7); Basophils % 1.3; Eosinophils % 17.1; HCT 33.4 % (40.0-50.0); Immature Grans % 0.3; Lymphocytes % 12.4; MCH 31.4 pg (27.0-33.0); MCHC 32.9 % (32.0-36.0); MCV 95 fL (80-95); MPV 12.1 fL (8.0-11.0); Monocytes % 8.6; Neutrophils % 60.3; Platelet Count 187 10^3/uL (130-400); RDW 13.8 % (11.8-14.1); RDW-SD 48.3 fL; WBC 7.09 10^3/uL (4.4-10.8)
[2022-05-02 15:21] LABS: Iron 65 ug/dL (65-175); Total Iron Binding Capacity 353 ug/dL (250-450); Transferrin Sat 18 % (20-55)
[2022-05-02 15:30] LABS: ALT 18 U/L (16-63); AST 12 U/L (15-37); Albumin 3.8 g/dL (3.4-5.0); Alkaline Phosphatase 88 U/L (46-116); Anion Gap 14.1 mmol/L (3-11); BUN 60 mg/dL (7-18); Bilirubin, Total 0.2 mg/dL (0.2-1.0); CO2 18.9 mmol/L (21.0-32.0); CREATININE 3.2 mg/dL (0.70-1.30); Calcium 8.6 mg/dL (8.5-10.1); Chloride 109 mmol/L (98-107); Glucose 90 mg/dL (74-106); Magnesium 2.3 mg/dL (1.8-2.4); PHOSPHORUS 4.1 mg/dL (2.6-4.7); Potassium 4.6 mmol/L (3.5-5.1); Sodium 142 mmol/L (136-145); Total Protein 7.1 g/dL (6.4-8.2)
[2022-05-02 16:32] LABS: Vitamin D 25 Total 17.6 ng/mL (30-100)
[2022-05-02 23:00] LABS: Parathyroid Hormone,Intact 139 pg/mL (19-88)
== END 2022-05-02 16:16 | disposition home or self-care (01) ==
LOC: NCHCN 16:15
PROVIDERS: PCP Family Medicine; Visit Provider Family Medicine
DX: N18.4 Chronic kidney disease, stage 4 (severe) (principal); R10.9 Unspecified abdominal pain; D64.9 Anemia, unspecified
CPT/HCPCS: 80053; 82306; 83540; 83550; 83735; 83970; 84100; 85025

== ENCOUNTER 2022-05-14 01:28 | Outpatient (CLI) | payer MEDICARE, SELFPAY ==
--- NOTE | 2022-05-14 | DI.US_ITS ---
Exam(s) US ABDOMEN EXAM: US ABDOMEN CLINICAL HISTORY: ABD PAIN, R10.9,H/O PANCREATITIS, H/O ALCOHOL USE IN PAST, CHRONIC KIDNEY TECHNIQUE: Ultrasound abdomen performed using standard protocol. COMPARISON: CT CT RENAL COLIC WO from 11/20/2021 FINDINGS: LIVER: Coarsening of the liver echotexture and mildly increased echogenicity consistent with mild fat ty infiltration. This appears improved from prior CT. No focal liver lesions are seen.. GALLBLADDER: 1.3 centimeter gallstone. No evidence of wall thickening. No pericholecystic fluid iden tified. SAMUEL'S SIGN: Negative. BILIARY SYSTEM: No intrahepatic or extrahepatic biliary ductal dilation. KIDNEYS: Kidneys are symmetric in size. No evidence of renal calculi. No evidence of hydronephrosis. No renal mass or cyst identified. PANCREAS: Not visualized. SPLEEN: Not enlarged. ABDOMINAL AORTA AND IVC: Visualized portions normal caliber. ASCITES: None seen. IMPRESSION: Mild fatty infiltration of the liver, improved from prior. Cholelithiasis. No evidence of acute cho lecystitis. Pancreas not visualized. DATA REPOSITORY:
== END 2022-05-14 01:48 ==
LOC: DI 01:28
PROVIDERS: PCP Family Medicine; Visit Provider Family Medicine
DX: R10.9 Unspecified abdominal pain (principal); F10.11 Alcohol abuse, in remission; Z87.19 Personal history of other diseases of the digestive system; K76.0 Fatty (change of) liver, not elsewhere classified; K80.20 Calculus of gallbladder without cholecystitis without obstruction
CPT/HCPCS: 76700

== ENCOUNTER 2022-07-18 17:30 | Outpatient (REF) | payer MEDICARE, SELFPAY ==
[2022-07-18 20:00] LABS: HGB 11.3 g/dL (13.5-17.5)
[2022-07-18 20:09] LABS: Albumin 3.8 g/dL (3.4-5.0); Anion Gap 12.4 mmol/L (3-11); BUN 50 mg/dL (7-18); CO2 19.6 mmol/L (21.0-32.0); CREATININE 2.8 mg/dL (0.70-1.30); Calcium 8.2 mg/dL (8.5-10.1); Chloride 109 mmol/L (98-107); Estimated GFR 23.83 (mL/min/1.73m2); Glucose 71 mg/dL (74-106); Potassium 4.7 mmol/L (3.5-5.1); Sodium 141 mmol/L (136-145)
[2022-07-18 20:11] LABS: Iron 86 ug/dL (65-175); Total Iron Binding Capacity 285 ug/dL (250-450); Transferrin Sat 30 % (20-55)
== END 2022-07-18 17:31 | disposition home or self-care (01) ==
LOC: NCHCN 17:30
PROVIDERS: PCP Family Medicine; Visit Provider Family Medicine
DX: N18.4 Chronic kidney disease, stage 4 (severe) (principal); D64.9 Anemia, unspecified
CPT/HCPCS: 80048; 82040; 83540; 83550; 85018

== ENCOUNTER 2022-08-02 01:15 | Outpatient (CLI) | payer MEDICARE, SELFPAY ==
--- NOTE | 2022-08-02 08:00 | ETT_ITS ---
APPROVED REPORT Exam: Exercise Treadmill Patient Location: Out-Patient Room/Bed: Stress Nurse: Viviana Mojica RN Ordering Provider:VALERIA DELACRUZ, Contact Number: BMI: 27.43 Baseline Rhythm: Sinus Rhythm Indications: LEI, CKD, upcoming foot surgery Medical History Medical History: Hypertension, hyperlipidemia, TERE, alcohol abuse, chronic kidney disease, reflux eso phagitis, hiatal hernia repair Cardiac Medications: Metoprolol succinate, lisinopril, amlodipine Allergies: Morphine Cardiac Risk Factors: Hypertension, hyperlipidemia, smoker (former) Previous Cardiac Procedures: None Pretest Chest Pain Characteristics: None Exercise History: Physically active Physical Disabilities: None Lung Sounds: Clear to auscultation Heart Sounds: Regular Stress Test Details Test: Exercise stress testing was performed using a Pablito protocol. Rest Stress HR Resting HR Supine: 79 bpm Max Heart Rate (APMHR): 152 bpm Resting HR Standin bpm Target HR (85% APMHR): 129 bpm Max HR Achieved: 158 bpm % of APMHR: 104 Recovery HR: 95 bpm HR response to stress: Normal HR response to stress Comment: Metoprolol succinate held for 48 hrs BP Resting BP Supine: 158/98 mmHg Resting BP Standin/98 mmHg Max BP: 196/90 mmHg Recovery BP: 164/92 mmHg BP response to stress: Normal blood pressure response to stress. ECG Resting ECG: Sinus Rhythm Ectopy: None Stress ECG: Sinus Tachycardia ST Change: No significant ST segment changes noted Arrhythmia: None Recovery ECG: Sinus Rhythm Recovery ST Change: No significant ST segment changes noted Recovery Arrhythmia: Rare PVC Clinical Reason for Termination: Fatigue Stress Symptoms: General Fatigue Exercise duration: 8 min59 sec Highest Stage Reached: Stage 3: 3.4 mph at 14% grade. Exercise capacity: 10.16 METs Angina Score: None Cao Treadmill Score: 7.4 Rate Pressure Product: 55403 Stress ECG Conclusion 1. Resting electrocardiogram showed an incomplete right bundle branch block 2. Patient exercised on the Pablito protocol completed a workload of 10.16 METS 3. Normal heart rate and blood pressure response to exercise. The patient achieved greater than 100% of predicted heart rate for age 4. There was no electrocardiographic evidence of myocardial ischemia 5. There were no significant dysrhythmias Cao Treadmill Score is 7.4 which is Low risk. Stress Test Summary STAGE Time (mins) Speed (mph) Grade (%) HR BP SpO2 SYMPTOMS METS Supine 79 158/98 Standing 85 150/98 96% 1 3 1.7 10 132 150/98 93% 4.5 2 6 2.5 12 146 150/100 96% 7 3 9 3.4 14 156 98% 10 1 min recovery 145 196/80 96% 3 min recovery 107 196/90 96% 6 min recovery 95 164/92 96%
== END 2022-08-02 01:35 ==
LOC: DI 01:16
PROVIDERS: PCP Family Medicine; Visit Provider Family Medicine
DX: R06.09 Other forms of dyspnea (principal)
CPT/HCPCS: 93016; 93018; 93017

== ENCOUNTER 2022-08-21 17:22 | Outpatient (REF) | payer MEDICARE, SELFPAY ==
[2022-08-21 16:10] LABS: HCT 33.2 % (40.0-50.0); HGB 11.1 g/dL (13.5-17.5); MCH 31.7 pg (27.0-33.0); MCHC 33.4 % (32.0-36.0); MCV 95 fL (80-95); MPV 12.2 fL (8.0-11.0); Platelet Count 183 10^3/uL (130-400); RDW 13.2 % (11.8-14.1); RDW-SD 45.6 fL; WBC 6.88 10^3/uL (4.4-10.8)
[2022-08-21 16:29] LABS: Anion Gap 10.2 mmol/L (3-11); BUN 57 mg/dL (7-18); CO2 21.8 mmol/L (21.0-32.0); CREATININE 3.1 mg/dL (0.70-1.30); Calcium 8.9 mg/dL (8.5-10.1); Chloride 109 mmol/L (98-107); Estimated GFR 21.09 (mL/min/1.73m2); Glucose 137 mg/dL (74-106); Potassium 5.1 mmol/L (3.5-5.1); Sodium 141 mmol/L (136-145); Uric Acid 7.9 mg/dL (3.5-7.2)
== END 2022-08-21 17:23 | disposition home or self-care (01) ==
LOC: NCHCN 17:22
PROVIDERS: PCP Family Medicine; Visit Provider Family Medicine
DX: N18.4 Chronic kidney disease, stage 4 (severe) (principal); D64.9 Anemia, unspecified; M10.9 Gout, unspecified
CPT/HCPCS: 80048; 85027; 84550

== ENCOUNTER 2022-10-09 15:43 | Outpatient (REF) | payer MEDICARE, SELFPAY ==
[2022-10-09 15:24] LABS: HCT 28.5 % (40.0-50.0); HGB 9.5 g/dL (13.5-17.5); MCH 30.7 pg (27.0-33.0); MCHC 33.3 % (32.0-36.0); MCV 92 fL (80-95); MPV 11.3 fL (8.0-11.0); Platelet Count 209 10^3/uL (130-400); RBC 3.09 10^6/uL (4.36-5.78); RDW 13.2 % (11.8-14.1); RDW-SD 44.2 fL; WBC 6.05 10^3/uL (4.4-10.8)
[2022-10-09 16:23] LABS: ALT 18 U/L (16-63); AST 13 U/L (15-37); Albumin 3.6 g/dL (3.4-5.0); Alkaline Phosphatase 110 U/L (46-116); Anion Gap 15.7 mmol/L (3-11); BUN 68 mg/dL (7-18); Bilirubin, Total 0.3 mg/dL (0.2-1.0); CO2 16.3 mmol/L (21.0-32.0); Calcium 8.6 mg/dL (8.5-10.1); Chloride 108 mmol/L (98-107); Estimated GFR 16.52 (mL/min/1.73m2); Glucose 97 mg/dL (74-106); Sodium 140 mmol/L (136-145); Total Protein 7.3 g/dL (6.4-8.2)
[2022-10-09 16:41] LABS: CREATININE 3.8 mg/dL (0.70-1.30)
== END 2022-10-09 15:44 | disposition home or self-care (01) ==
LOC: NCHCN 15:43
PROVIDERS: PCP Family Medicine; Visit Provider Physician Assistant
DX: N18.4 Chronic kidney disease, stage 4 (severe) (principal)
CPT/HCPCS: 80053; 85027

== ENCOUNTER 2022-10-29 10:30 | Outpatient (REF) | payer MEDICARE, SELFPAY ==
[2022-10-29 16:04] LABS: HCT 29.8 % (40.0-50.0); HGB 9.4 g/dL (13.5-17.5); MCH 30.3 pg (27.0-33.0); MCHC 31.5 % (32.0-36.0); MCV 96 fL (80-95); MPV 11.3 fL (8.0-11.0); Platelet Count 227 10^3/uL (130-400); RDW-SD 49.2 fL; WBC 6.02 10^3/uL (4.4-10.8)
[2022-10-29 16:35] LABS: Anion Gap 15.6 mmol/L (3-11); BUN 66 mg/dL (7-18); CO2 16.4 mmol/L (21.0-32.0); Calcium 8.6 mg/dL (8.5-10.1); Chloride 108 mmol/L (98-107); Estimated GFR 17.06 (mL/min/1.73m2); Glucose 70 mg/dL (74-106); Potassium 4.5 mmol/L (3.5-5.1); Sodium 140 mmol/L (136-145)
[2022-10-29 16:45] LABS: CREATININE 3.7 mg/dL (0.70-1.30)
[2022-10-29 16:49] LABS: Iron 44 ug/dL (65-175); Total Iron Binding Capacity 260 ug/dL (250-450); Transferrin Sat 17 % (20-55)
[2022-10-29 17:06] LABS: COMMENT (LAB VIEW ONLY) 74.39 mg/dL
[2022-10-29 17:24] LABS: Microalb ug/mg Crea 924.3 ug/mg Cr
== END 2022-10-29 10:31 | disposition home or self-care (01) ==
LOC: NCHCN 10:30
PROVIDERS: PCP Family Medicine; Visit Provider Family Medicine
DX: N18.4 Chronic kidney disease, stage 4 (severe) (principal); D63.1 Anemia in chronic kidney disease
CPT/HCPCS: 80048; 85027; 82043; 82570; 83540; 83550

== ENCOUNTER 2022-12-20 12:17 | Emergency (ER) | payer OTHER, MEDICARE, SELFPAY ==
[2022-12-20] VITALS (7 sets, daily range): BP systolic 135–147; BP diastolic 76–88; PULSE 58–75; RESP 16–18; TEMP 36.6–37.2; O2SAT 96–99
--- NOTE | 2022-12-20 12:30 | DI.RAD_ITS ---
Exam(s) XR KNEE LT 3V AP,LAT,JONATHAN EXAM: CLINICAL HISTORY: . TECHNIQUE: 2D digital imaging was performed. COMPARISON: No exams were available for comparison FINDINGS: 3 views There is prominent soft tissue swelling anterior to the patella and upper half of the patellar ligame nt. There is no evidence of patellar fracture. No obvious knee joint effusion. Mild degenerative c hanges noted in the lateral compartment. Bone density normal. No osseous lesions IMPRESSION: Prominent prepatellar swelling. No fracture evident. DATA REPOSITORY: RADIATION DOSE DELIVERED:
--- NOTE | 2022-12-20 12:30 | DI.RAD_ITS ---
Exam(s) XR PELVIS AP EXAM: CLINICAL HISTORY: . TECHNIQUE: 2D digital imaging was performed. COMPARISON: No exams were available for comparison FINDINGS: Single AP view. No evidence of pelvic nor hip fracture. SI joints unremarkable. No degenerative changes evident in the hips. No osseous lesions. Visit ectomy clips noted IMPRESSION: No acute osseous findings in the pelvis and hips. DATA REPOSITORY: RADIATION DOSE DELIVERED:
--- NOTE | 2022-12-20 12:30 | DI.RAD_ITS ---
Exam(s) XR CHEST 2V PA LATERAL EXAM: CLINICAL HISTORY: . TECHNIQUE: 2D digital imaging was performed. COMPARISON: No exams were available for comparison FINDINGS: 3 views Heart size upper normal. Mediastinum not widened. No infiltrates nor pleural effusions. No pulmona ry edema. No pneumothorax. There are multiple healed right-sided rib fractures. IMPRESSION: No acute pulmonary findings. Multiple healed right-sided rib fractures noted DATA REPOSITORY: RADIATION DOSE DELIVERED:
--- NOTE | 2022-12-20 12:30 | DI.RAD_ITS ---
Exam(s) XR TIB/FIB LT EXAM: CLINICAL HISTORY: . TECHNIQUE: 2D digital imaging was performed. COMPARISON: No exams were available for comparison FINDINGS: Two views. No evidence of fracture. No osseous lesions. Vascular calcification is seen in the posterior tibial artery in the distal calf. IMPRESSION: No acute osseous findings. DATA REPOSITORY: RADIATION DOSE DELIVERED:
--- NOTE | 2022-12-20 12:30 | DI.RAD_ITS ---
Exam(s) XR TOE RT GREAT EXAM: ER CLINICAL HISTORY: . TECHNIQUE: 2D digital imaging was performed of the right foot. Three images were obtained. AP, obl ique and lateral views were obtained. COMPARISON: CR PA LATERAL CHEST from 12/20/2022 FINDINGS: BONES: No acute fracture is present. No bony destructive lesion is seen. There are postsurgical chandra es at the 1st MTP joint. There is also been resection of the 2nd toe. JOINTS: No dislocation present. There are marked degenerative changes seen at the 1st MTP joint with joint space narrowing and osteophytes. SOFT TISSUE: Normal. IMPRESSION: 1. No acute abnormality. 2. No acute fracture or destructive changes seen. 3. Degenerative changes seen at the 1st MTP joint. DATA REPOSITORY: RADIATION DOSE DELIVERED:
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
== END 2022-12-20 17:33 | disposition home or self-care (01) ==
LOC: ER 17:25
PROVIDERS: Emergency Provider Physician Assistant; PCP Family Medicine
DX: S70.12XA Contusion of left thigh, initial encounter (principal); M70.52 Other bursitis of knee, left knee; R58 Hemorrhage, not elsewhere classified; M79.674 Pain in right toe(s); V43.52XA Car driver injured in collision with other type car in traffic accident, initial encounter
CPT/HCPCS: 73562; 99284; 71046; 72170; 73590; 73660; 99283

== ENCOUNTER 2023-04-02 01:03 | Outpatient (CLI) | payer MEDICARE, SELFPAY ==
[2023-04-02 09:41] LABS: Abs Immature Grans 0.02 10^3/uL (0.0-0.06); Absolute Basophil Count 0.05 10^3/uL (0.0-0.2); Absolute Eosinophil Count 0.42 10^3/uL (0.0-0.7); Absolute Lymphocyte Count 0.74 10^3/uL (1.2-3.4); Absolute Monocyte Count 0.42 10^3/uL (0.1-0.8); Absolute Neutrophil Count 4.06 10^3/uL (1.2-6.7); Basophils % 0.9; Eosinophils % 7.4; HCT 32.9 % (40.0-50.0); HGB 10.7 g/dL (13.5-17.5); Immature Grans % 0.4; MCH 30.8 pg (27.0-33.0); MCHC 32.5 % (32.0-36.0); MCV 95 fL (80-95); MPV 11.3 fL (8.0-11.0); Monocytes % 7.4; Neutrophils % 70.9; Platelet Count 189 10^3/uL (130-400); RBC 3.47 10^6/uL (4.36-5.78); RDW 13.4 % (11.8-14.1); RDW-SD 45.9 fL; WBC 5.71 10^3/uL (4.4-10.8)
[2023-04-02 09:44] LABS: Bilirubin Negative (Negative); Blood Negative (Negative); Clarity Clear (Clear); Glucose 250 mg/dL (Negative); Ketones Negative (Negative); Leukocyte Esterase Negative (Negative); Nitrite Negative (Negative); Specific Gravity 1.025 (1.005-1.025); Urobilinogen 0.2 mg/dL (Up to 0.2); pH 5.5 (5-8)
[2023-04-02 10:00] LABS: COMMENT (LAB VIEW ONLY) 104.26 mg/dL; PROTEIN 154.6 mg/dL; Prot/Crea Ur Ratio 1.48
[2023-04-02 10:03] LABS: Bacteria Rare HPF (Negative); C & S Indicated? No; Casts Negative LPF (Negative); Crystals Negative HPF (Negative); Epithelial Cells Negative HPF (Negative); Mucus Moderate (Negative); Other Cells Negative (Negative); RBC Negative HPF (0-2); WBC 0-2 HPF (0-5)
[2023-04-02 10:04] LABS: Anion Gap 10.9 mmol/L (3-11); BUN 58 mg/dL (7-18); CO2 19.1 mmol/L (21.0-32.0); CREATININE 3.2 mg/dL (0.70-1.30); Calcium 8.8 mg/dL (8.5-10.1); Chloride 106 mmol/L (98-107); Estimated GFR 20.18 (mL/min/1.73m2); Glucose 112 mg/dL (74-106); PHOSPHORUS 4.2 mg/dL (2.6-4.7); Potassium 4.9 mmol/L (3.5-5.1); Sodium 136 mmol/L (136-145)
[2023-04-02 19:42] LABS: Parathyroid Hormone,Intact 160 pg/mL (19-88)
== END 2023-04-02 01:04 | disposition home or self-care (01) ==
PROVIDERS: PCP Family Medicine; Visit Provider Internal Medicine Nephrology
DX: N18.4 Chronic kidney disease, stage 4 (severe) (principal); I10 Essential (primary) hypertension; N25.81 Secondary hyperparathyroidism of renal origin
CPT/HCPCS: 36415; 80048; 81003; 81015; 82040; 82565; 83970; 84100; 84156; 85025

== ENCOUNTER 2023-04-29 10:45 | Outpatient (REF) | payer MEDICARE, SELFPAY ==
[2023-04-29 15:17] LABS: Iron 80 ug/dL (65-175); Total Iron Binding Capacity 316 ug/dL (250-450); Transferrin Sat 25 % (20-55)
[2023-04-29 15:19] LABS: Ferritin 116 ng/mL (26-388)
== END 2023-04-29 10:46 | disposition home or self-care (01) ==
LOC: NCHCN 10:45
PROVIDERS: PCP Family Medicine; Visit Provider Family Medicine
DX: N18.4 Chronic kidney disease, stage 4 (severe) (principal); D63.1 Anemia in chronic kidney disease
CPT/HCPCS: 82728; 83540; 83550

== ENCOUNTER 2023-09-11 04:22 | Outpatient (CLI) | payer MEDICARE, SELFPAY ==
[2023-09-11 14:13] LABS: BUN 68 mg/dL (7-18); Calcium 8.3 mg/dL (8.5-10.1); Chloride 108 mmol/L (98-107); Estimated GFR 15.91 (mL/min/1.73m2); Glucose 97 mg/dL (74-106); Potassium 5.7 mmol/L (3.5-5.1); Sodium 140 mmol/L (136-145)
[2023-09-11 14:20] LABS: CREATININE 3.9 mg/dL (0.70-1.30)
== END 2023-09-11 04:23 | disposition home or self-care (01) ==
LOC: LBO 04:22
PROVIDERS: PCP Family Medicine; Visit Provider Internal Medicine Nephrology
DX: N18.4 Chronic kidney disease, stage 4 (severe) (principal); I10 Essential (primary) hypertension
CPT/HCPCS: 36415; 80048

== ENCOUNTER 2023-09-18 05:09 | Outpatient (CLI) | payer MEDICARE, SELFPAY ==
[2023-09-18 15:33] LABS: BUN 58 mg/dL (7-18); Calcium 8.5 mg/dL (8.5-10.1); Chloride 110 mmol/L (98-107); Estimated GFR 15.91 (mL/min/1.73m2); Glucose 79 mg/dL (74-106); Potassium 4.9 mmol/L (3.5-5.1); Sodium 141 mmol/L (136-145)
[2023-09-18 15:45] LABS: CREATININE 3.9 mg/dL (0.70-1.30)
== END 2023-09-18 05:10 | disposition home or self-care (01) ==
LOC: LBO 05:09
PROVIDERS: PCP Family Medicine; Visit Provider Internal Medicine Nephrology
DX: N18.4 Chronic kidney disease, stage 4 (severe) (principal); I10 Essential (primary) hypertension
CPT/HCPCS: 36415; 80048

== ENCOUNTER 2023-09-23 05:42 | Outpatient (CLI) | payer MEDICARE, SELFPAY ==
[2023-09-23 13:27] LABS: Anion Gap 12.4 mmol/L (3-11); BUN 47 mg/dL (7-18); CO2 22.6 mmol/L (21.0-32.0); CREATININE 3.5 mg/dL (0.70-1.30); Calcium 7.9 mg/dL (8.5-10.1); Chloride 106 mmol/L (98-107); Estimated GFR 18.12 (mL/min/1.73m2); Glucose 166 mg/dL (74-106); Potassium 4.8 mmol/L (3.5-5.1); Sodium 141 mmol/L (136-145)
[2023-09-24 08:34] LABS: IgA 144 mg/dL (85-499); IgG 671 mg/dL (610-1616); IgM 120 mg/dL (35-242)
[2023-09-24 13:54] LABS: Albumin 61.9 % (55.8-66.1); Albumin g/dL 4.1 g/dL (3.6-5.2); Total Protein 6.6 g/dL (6.3-8.2)
[2023-09-24 15:11] LABS: Albumin, Urine % 69.2 %; Albumin, Urine mg/dL 191 mg/dL; Globulins, Urine % 30.8 %; Globulins, Urine mg/dL 85 mg/dL; Immunotyping, Urine (See Note); Total Protein Urine 276 mg/dL (See Note)
== END 2023-09-23 05:43 | disposition home or self-care (01) ==
PROVIDERS: PCP Family Medicine; Visit Provider Internal Medicine Nephrology
DX: N18.4 Chronic kidney disease, stage 4 (severe) (principal); I10 Essential (primary) hypertension
CPT/HCPCS: 36415; 80048; 82784; 84156; 84166; 86335; 84165

== ENCOUNTER → 2023-09-25 02:54 | Outpatient (CLI) | payer MEDICARE, SELFPAY ==
--- NOTE | 2023-09-25 | DI.US_ITS ---
Exam(s) US RENAL EXAM: US RENAL CLINICAL HISTORY: ACUTE/WORSENING CKD STAGE 4, N18.4, PRIMARY HTN, I10. TECHNIQUE: Mac scale, color and spectral Doppler were used. COMPARISON: CT CT ABDOMEN PELVIS WO from 06/02/2020 US US ABDOMEN from 05/14/2022 FINDINGS: Renal size in cm: Right: 9.2 left: 10.3 Echogenicity: Normal Hydronephrosis: No Cyst or mass: No Nephrolithiasis: No Bladder:Normal. Both ureteral jets were visualized. Prevoid vol: 216 cc Postvoid vol: 0 cc Prostate volume 14 cc. IMPRESSION: Negative renal ultrasound. DATA REPOSITORY:
== END ==
PROVIDERS: PCP Family Medicine; Visit Provider Internal Medicine Nephrology
DX: N18.4 Chronic kidney disease, stage 4 (severe) (principal); I10 Essential (primary) hypertension
CPT/HCPCS: 76770

== ENCOUNTER → 2023-10-01 16:36 | Outpatient (CLI) | payer MEDICARE, SELFPAY ==
--- NOTE | 2023-10-01 | DI.RAD_ITS ---
Exam(s) XR FINGER LT MIDDLE EXAM: XR FINGER LT MIDDLE CLINICAL HISTORY: S60.343A injury of left middle finger, ? FX. TECHNIQUE: 2D digital imaging was performed. Three views. COMPARISON: None. FINDINGS: BONES: Oblique fractures seen extending through the distal phalanx of the 3rd finger. Mild displacem ent. No separation at the articular surface is visible. No bony destructive lesion is seen. JOINTS: No dislocation present. Mild degenerative changes at the distal interphalangeal joint of the 3rd finger. SOFT TISSUE: Gauze overlies the distal phalanx. IMPRESSION: Fracture of the distal phalanx of the 3rd finger. DATA REPOSITORY: RADIATION DOSE DELIVERED:
--- NOTE | 2023-10-01 18:03 | DI.VRAD_ITS ---
PROCEDURE INFORMATION: Exam: XR Left Finger(s) Exam date and time: 10/01/2023 5:03 PM Age: 68 years old Clinical indication: Pain; Finger(s); Left; Patient HX: Lt middle finger trauma TECHNIQUE: Imaging protocol: Radiologic exam of the left fingers. Views: Minimum 2 views. COMPARISON: No relevant prior studies available. FINDINGS: Bones/joints: There is a slightly widened nondisplaced fracture obliquely through the 3rd distal phalanx. No definite intra-articular extension. No other acute fracture. Mild scattered degenerative arthritic changes noted. Soft tissues: Diffuse soft tissue swelling of the distal 3rd finger. No radiodense foreign bodies. IMPRESSION: Nondisplaced 3rd distal phalanx fracture Dictated and Authenticated by: Naveed Das MD. Ordering:KARTIK James MD
== END ==
PROVIDERS: PCP Family Medicine; Visit Provider Physician Assistant
DX: S62.632A Displaced fracture of distal phalanx of right middle finger, initial encounter for closed fracture (principal); X58.XXXA Exposure to other specified factors, initial encounter
CPT/HCPCS: 73140

== ENCOUNTER → 2023-10-09 13:46 | Outpatient (BNVA) | payer MEDICARE, SELFPAY | PROVIDERS: PCP Student in an Organized Health Care Education/Training Program; Referring Provider Family Medicine; Visit Provider Student in an Organized Health Care Education/Training Program | DX: S62.633A Displaced fracture of distal phalanx of left middle finger, initial encounter for closed fracture (principal); S61.313A Laceration without foreign body of left middle finger with damage to nail, initial encounter; X58.XXXA Exposure to other specified factors, initial encounter | CPT/HCPCS: 11760; 99215 ==

== ENCOUNTER 2023-10-16 15:59 | Outpatient (CLI) | payer MEDICARE, SELFPAY ==
--- NOTE | 2023-10-16 14:00 | DI.RAD_ITS ---
Exam(s) XR FINGER LT MIDDLE EXAM: XR FINGER LT MIDDLE INDICATION: F/U FRACTURE. COMPARISON: CR,XR XR FINGER LT MIDDLE from 10/01/2023 TECHNIQUE: 2D digital imaging was performed. Two views. FINDINGS: There has been no change in the alignment of the fracture of the distal phalanx of the middle finger. Soft tissue swelling remains present. DATA REPOSITORY: RADIATION DOSE DELIVERED:
== END 2023-10-16 16:00 | disposition home or self-care (01) ==
LOC: DIORS 15:59
PROVIDERS: PCP Student in an Organized Health Care Education/Training Program; Referring Provider Student in an Organized Health Care Education/Training Program; Visit Provider Student in an Organized Health Care Education/Training Program
DX: S62.633D Displaced fracture of distal phalanx of left middle finger, subsequent encounter for fracture with routine healing; S61.313D Laceration without foreign body of left middle finger with damage to nail, subsequent encounter; X58.XXXD Exposure to other specified factors, subsequent encounter
CPT/HCPCS: 99213; 73140

== ENCOUNTER 2023-11-13 15:14 | Outpatient (CLI) | payer MEDICARE, SELFPAY ==
--- NOTE | 2023-11-13 08:45 | DI.RAD_ITS ---
Exam(s) XR FINGER LT MIDDLE EXAM: XR FINGER LT MIDDLE INDICATION: F/U FRACTURE. COMPARISON: CR XR FINGER LT MIDDLE from 10/16/2023 TECHNIQUE: 2D digital imaging was performed. Two views. FINDINGS: There has been no change in the alignment of the fracture of the distal phalanx. Some interval incre ase in healing. No new abnormalities. DATA REPOSITORY: RADIATION DOSE DELIVERED:
== END 2023-11-13 15:15 | disposition home or self-care (01) ==
LOC: DIORS 15:14
PROVIDERS: PCP Student in an Organized Health Care Education/Training Program; Referring Provider Student in an Organized Health Care Education/Training Program; Visit Provider Student in an Organized Health Care Education/Training Program
DX: S62.633D Displaced fracture of distal phalanx of left middle finger, subsequent encounter for fracture with routine healing (principal); S61.313D Laceration without foreign body of left middle finger with damage to nail, subsequent encounter; X58.XXXD Exposure to other specified factors, subsequent encounter
CPT/HCPCS: 99213; 73140

== ENCOUNTER 2023-11-26 09:09 | Outpatient (CLI) | payer MEDICARE, SELFPAY ==
--- NOTE | 2023-11-26 09:00 | DI.RAD_ITS ---
Exam(s) XR SHOULDER RT COMPLETE 2+V EXAM: XR SHOULDER RT COMPLETE 2+V CLINICAL HISTORY: BILATERAL SHOULDER PAIN. TECHNIQUE: 2D digital imaging was performed. COMPARISON: No exams were available for comparison FINDINGS: Two views. No evidence of acute fracture. However, there is significant glenohumeral joint space narrowing, mor e so superiorly than inferiorly. There is an element of upward subluxation of the humeral head in th e glenoid fossa with diminution of the subacromial space. No osseous lesions. Mild degenerative petrona nges in the AC joint. IMPRESSION: Significant degenerative changes in the glenohumeral joint. DATA REPOSITORY: RADIATION DOSE DELIVERED:
--- NOTE | 2023-11-26 09:00 | DI.RAD_ITS ---
Exam(s) XR SHOULDER LT COMPLETE 2+V EXAM: XR SHOULDER LT COMPLETE 2+V CLINICAL HISTORY: BILATERAL SHOULDER PAIN. TECHNIQUE: 2D digital imaging was performed. COMPARISON: CR XR SHOULDER RT COMPLETE 2+V from 11/26/2023 FINDINGS: Two views. No evidence of fracture or dislocation nor abnormal soft tissue calcifications. Subacromial space is not diminished. No significant degenerative changes in the glenohumeral joint. Mild degenerative c hanges in the AC joint. Bone density normal. No osseous lesions. IMPRESSION: No significant osseous findings on these two views of the left shoulder. DATA REPOSITORY: RADIATION DOSE DELIVERED:
== END 2023-11-26 09:10 | disposition home or self-care (01) ==
LOC: DIORS 09:09
PROVIDERS: PCP Student in an Organized Health Care Education/Training Program; Referring Provider Student in an Organized Health Care Education/Training Program; Visit Provider Student in an Organized Health Care Education/Training Program
DX: M75.101 Unspecified rotator cuff tear or rupture of right shoulder, not specified as traumatic; M75.102 Unspecified rotator cuff tear or rupture of left shoulder, not specified as traumatic; M12.811 Other specific arthropathies, not elsewhere classified, right shoulder; M12.812 Other specific arthropathies, not elsewhere classified, left shoulder
CPT/HCPCS: 99214; 73030

== ENCOUNTER 2023-12-10 04:39 | Outpatient (CLI) | payer MEDICARE, SELFPAY ==
--- OUTSIDE RECORDS SUMMARY | 2023-12-10 04:56 | XMS_ITS | Encounter Summary ---
Author Organization [facility] Address [address] [place] [address] Care Team Providers Care Dewatering Filtering Supervisor Name Role Phone Luis Lauren MD Primary Care Provider [phone] Slade Tran MD Primary Care Provider [phone] Encounter Details Date Type Department Care Team (Late st Contact Info) Description 05/02/2022 Lab Requisition [facility] Pathology & Laboratory Medicine - [facility] [address], [place] [id number] Outr Resulting Lab, Provider Social History Tobacco Use Types Packs/Day Years Used Date Smoking Tobacco: Never Smokeless Tobacco: Never Alcohol Use Standard Drinks/Week Comments Not Currently 0 (1 standard drink = 0.6 oz pure alcohol) quit 01/2021. goes to AA per relapse 05/2021 he states 2-3 shot a day. per 6 shot a day.. last drink 10/18/21 Interpersonal Safety Answer Date Record ed Physically Hurt Never 12/27/2019 Verbally Threaten Not on file 12/27/2019 Sex and Gender Information Value Date Recorded Sex Assigned at Not on file Gender Identity Male 10/18/2021 9:41 EDT Sexual Orientation Not on file documented as of this encounter Functional Status Functional Status Response Date of Assess ment Are you deaf or do you have serious difficulty h earing? Yes 07/31/2021 Are you blind or do you have serious difficulty seeing, even when wearing glasses? No 10/25/2021 Do you have serious difficul ty walking or climbing stairs? (5 years old or older) No 10/25/2021 Do you have difficulty dress ing or bathing? (5 years old or older) No 10/25/2021 Because of a physical, menta l, or emotional condition, do you have difficulty doing errands alone such as visiting a doctor's office or shopping? (15 years old or older) No 10/25/2021 Cognitive Status Response Date of Assessm ent Because of a physical, menta l, or emotional condition, do you have serious difficulty concentrating, remembering, or making decisions? (5 years old or older) No 10/25/2021 documented as of this encounter Plan of Treatment Not on file documented as of this encounter Procedures Procedure Name Priority Date/Time Associated Diagnosis Comments PTH INTACT Routine 05/02/2022 11:10 EST documented in this encounter Results * (ABNORMAL) PTH INTACT (05/02/2022 11:10 EST) Intact PTH 139(H) 19 - 88 pg/mL 05/02/2022 22:56 EST [facility] Blood VENOUS BLOOD / Unknown 05/02/2022 11:10 EST 05/02/2022 21:29 EST Provider Outr Resulting Lab CHEMISTRY & BLOOD GAS ORDERABLES Performing Organization Address City/State/[facility] Co de Phone Number [facility] [address] [place] [address] documented in this encounter Visit Diagnoses Not on filedocumented in this encounter Care Teams Dewatering Filtering Supervisor Relationship Specialty Start Date End Date Luis Lauren MD [address] [place] [address] PCP - General Family Medicine - Primary Care 11/23/21 11/11/22 Slade Tran MD [facility] [place] [place] [address] PCP - General 11/12/22 documented as of this encounter
--- OUTSIDE RECORDS SUMMARY | 2023-12-10 04:56 | XMS_ITS | Encounter Summary ---
Author Organization [facility] Address [address] [place] [address] Care Team Providers Care Hat Body Inspector Name Role Phone Slade Tran MD Primary Care Provider [phone] Encounter Details Date Type Department Care Team (Late st Contact Info) Description 04/02/2023 Lab Requisition [facility] Pathology & Laboratory Medicine - [facility] [address] [place], [place] [address] Outr Resulting Lab, Provider Social History Tobacco [...] Date/Time Associated Diagnosis Comments PTH INTACT Routine 04/02/2023 9:10 EST documented in this encounter Results * (ABNORMAL) PTH INTACT (04/02/2023 9:10 EST) Intact PTH 160(H) 19 - 88 pg/mL 04/02/2023 19:37 EST [facility] Blood VENOUS BLOOD / Unknown 04/02/2023 9:10 EST 04/02/2023 17:52 EST Provider Outr Resulting Lab CHEMISTRY & BLOOD GAS ORDERABLES Performing Organization Address City/State/[facility] Co de Phone Number [facility] [address] [place] [address] documented in this encounter Visit Diagnoses Not on filedocumented in this encounter Care Teams Hat Body Inspector Relationship Specialty Start Date End Date Slade Tran MD [address] [place] [address] PCP - General 11/12/22 documented as of this encounter
--- OUTSIDE RECORDS SUMMARY | 2023-12-10 04:56 | XMS_ITS | Encounter Summary ---
Author Organization [facility] Address [address] [place] [address] Care Team Providers Care Patient Scheduling Coordinator Name Role Phone Luis Lauren MD Primary Care Provider [phone] Reason for Referral * Medication Prior Authorization - Closed Specialty Diagnoses / Procedures Referred By Devaughn bobo Referred To Contact Ollie Lee MD [address] [place] [phone] Referral ID Status Reason Start Date Expiration Date Visits Re quested Visits Authorized [id number] Closed 1 1 Reason for Visit * Reason Onset Date Comments Medications Refill 11/23/2021 Encounter Details Date Type Department Care Team (Late st Contact Info) Description 11/23/2021 Telephone [facility] General Surgery - [address] [id number] Ollie Lee MD [address] [place] [phone] Medications Refill Social History Tobacco Use Types Packs/Day Years [...] No 10/25/2021 documented as of this encounter Ordered Prescriptions Prescription Sig Dispensed Refills Start Date End Da te ondansetron (ZOFRAN-ODT) 4 mg disintegrating tablet Take 1 Tablet by mouth every 8 hours as needed for Nausea. 15 Tablet 2 11/23/2021 ondansetron (ZOFRAN-ODT) 4 mg disintegrating tablet Take 1 Tablet by mouth every 8 hours as needed for Nausea. 15 Tablet 2 11/23/2021 11/23/2021 documented in this encounter Miscellaneous Notes * Telephone Encounter - Leni Blanchard RN - 11/23/2021 1608 EDT Refilled per request * Telephone Encounter - Traci Barfield - 11/23/2021 1555 EDT ondamestral- [facility] documented in this encounter Plan of Treatment Not on file documented as of this encounter Visit Diagnoses Not on filedocumented in this encounter Discontinued Medications Medication Sig Discontinue Reason Start Date End Da te ondansetron (ZOFRAN-ODT) 4 mg disintegrating tablet Take 1 Tablet by mouth every 8 hours as needed for Nausea. Reorder 10/26/2021 11/23/2021 ondansetron (ZOFRAN-ODT) 4 mg disintegrating tablet Take 1 Tablet by mouth every 8 hours as needed for Nausea. Reorder 11/23/2021 11/23/2021 documented as of this encounter Care Teams Patient Scheduling Coordinator Relationship Specialty Start Date End Date Luis Lauren MD [address] [place] [address] [place] [address] PCP - General Family Medicine - Primary Care 11/23/21 11/11/22 documented as of this encounter
--- OUTSIDE RECORDS SUMMARY | 2023-12-10 04:56 | XMS_ITS | Continuity of Care Document ---
Author Organization [facility] Address [address] [place] [address] Care Team Providers Care Melt House Drag Operator Name Role Phone JAYME HENDRICKS, VALERIA Zapata Primary Care Physician Encounter [facility] NBR [id number] Date(s): 08/21/22 - 08/21/22 [facility] [address], [place] [address] Encounter Diagnosis Nontraumatic rupture of rotator cuff of left shoulder(Discharge Diagnosis) - 08/21/22 Nontraumatic rupture of rotator cuff of right shoulder(Discharge Diagnosis) - 08/21/22 Biceps tendinitis(Discharge Diagnosis) - 08/21/22 Impingement syndrome of shoulder region(Discharge Diagnosis) - 08/21/22 Degenerative joint disease of shoulder region(Discharge Diagnosis) - 08/21/22 Discharge Disposition: Home or Self Care Attending Physician: Evans Toure MD Allergies, Adverse Reactions, Alerts Substance Reaction Severity Status morphine itchy, rash Mild Active Morphine Sulfate ER Unknown Moderate Active Assessment and Plan Future Appointments Functional Status 08/21/22 Other exposure to Infectious Disease Non e Medications allopurinol 100 mg oral tablet 1 Unknown, 0 Refill(s) Start Date: 08/21/22 Status: Ordered amLODIPine 5 mg oral tablet 1 Unknown, 0 Refill(s) Start Date: 08/21/22 Status: Ordered hydroCHLOROthiazide 25 mg oral tablet 1 Unknown, 0 Refill(s) Start Date: 08/21/22 Status: Ordered lansoprazole 30 mg oral delayed release capsule 1 Unknown, 0 Refill(s) Start Date: 08/21/22 Status: Ordered lisinopril 5 mg oral tablet 1 Unknown, 0 Refill(s) Start Date: 08/21/22 Status: Ordered metoprolol tartrate 100 mg oral tablet BID, 1 Unknown, 0 Refill(s) Start Date: 08/21/22 Status: Ordered Toprol-XL 100 mg oral tablet, extended release 1 Unknown, 0 Refill(s) Start Date: 08/21/22 Status: Ordered Vitamin B-12 500 mcg oral tablet 1 Unknown, 0 Refill(s) Start Date: 08/21/22 Status: Ordered Zestril 20 mg oral tablet 1 Unknown, 0 Refill(s) Start Date: 08/21/22 Status: Ordered Problem List Condition Confirmation Course Effective Dates Status H ealth Status Informant Sharma's esophagus Confirmed Active Biceps tendinitis Confirmed Active Degenerative joint disease of shoulder region Confirmed Active Esophageal dysphagia Confirmed Active Gastro-esophageal reflux disease with esophagitis Confirmed Active Gastroesophageal reflux disease Confirmed Active History of alcohol abuse Confirmed Active History of partial resection of colon Confirmed Active Impingement syndrome of shoulder region Confirmed Active Nontraumatic rupture of rotator cuff of left shoulder Confirmed Active Nontraumatic rupture of rotator cuff of right shoulder Confirmed Active Shoulder pain Confirmed Active Vital Signs Most recent to oldest [Reference Range]: 1 Peripheral Pulse Rate [60-100 bpm] 78 bp m (08/21/22 8:29 AM) Blood Pressure [90-140/60-90 mmHg] 140/8 0mmHg (08/21/22 8:29 AM) Weight 79.38 kg (08/21/22 8:29 AM) Weight Measured (lbs) 175.003 lb (08/21/22 8:29 AM) Height 167.64 cm (08/21/22 8:29 AM) Height/Length Measured (inches) 66 inch (08/21/22 8:29 AM) BSA Measured 1.92 m2 (08/21/22 8:29 AM) Body Mass Index 28.25 kg/m2 (08/21/22 8:29 AM) Social History Social History Type Response Tobacco Never tobacco user T obacco Use:. Sex Hospital Discharge Instructions Follow Up Care 07/24/2022 10:12:17 With:Follow up with Orthopedic Address: When:Within 6 Week(s) Physician Outpatient Note * Evans Toure MD: PERFORM Event Display: Office Clinic Note Physician Authored Date: [id number] ALEJANDRO LINK :1955 Age:67 years Sex:Male Visit Date:08/21/2022 Primary Care Physician: VALERIA TRAN MD Chief Complaint bilateral shoulder pain History of Present Illness Please send a copy of this note to Dr. Valeria Tran. ?? The patient is a 67-year-old RHD gomez??who is seen today for the evaluation of bilateral shoulder pain and weakness. ??The patient denies focal injury but states that in the beginning of 2022 hebegan to experience left greater than right shoulder pain.?? The patient has a history of known rotator cuff tear diagnosed 5 years ago by MRI that was successfully managed with physical therapy.?? Bilateral shoulders have been painful anterolaterally with abduction and forward elevation activities, particularly those above the horizontal. ??He is subjectively weak in the same planes. ??He deniesnumbness or tingling. ??Bilateral shoulders have woken him up at times. ??He has been using Aspercreme to address this. Physical Exam Vitals & Measurements HR:??78??(Peripheral)?? BP:??140/80?? SpO2:??98%?? HT:??167.64??cm?? WT:??79.38??kg?? BMI:??28.25?? Pain Score:??6?? BSA:??1.92?? The patient's??right??upper??extremity is neurovascularly intact. ??Sensation and motor exam are intact distally. ??All digits are warm and pink.?? No Gurwinder deformity or obvious atrophy is present. ??Range of motion of the shoulder is full but with pain on terminal elevation. ??Neer and Villa signs are positive. ??Drop arm test negative. ??Strength is 4 out of 5 to elevation and external rotation, 5 out of 5 to internal rotation testing. ??The AC joint is hypertrophic and tender to palpationwith a positive crossarm adduction test. ??He has tenderness overlying the proximal bicipital groove. ??Speed's Test positive. ??Geary sign is positive. ??He has tenderness overlying the greater tuberosity. ?? The patient's left??upper??extremity is neurovascularly intact. ??Sensation and motor exam are intact distally. ??All digits are warm and pink.?? No Gurwinder deformity or obvious atrophy is present.??Range of motion of the shoulder is full but with pain on terminal elevation. ??Neer and Villa signs are positive. ??Drop arm test negative. ??Strength is 4 out of 5 to elevation, and 5 out of 5 to external and internal rotation strength testing. ??The AC joint is hypertrophic and mildly tender to??palpation with a mildly positive crossarm adduction test. ??He has mild tenderness overlying theproximal bicipital groove. ??Speed's Test positive. ??Geary sign is positive. ??He has tenderness about??the anterior aspect of the greater tuberosity. Assessment/Plan 1.??Nontraumatic rupture of rotator cuff of left shoulder??M75.102 2.??Nontraumatic rupture of rotator cuff of right shoulder??M75.101 3.??Biceps tendinitis??M75.20 4.??Impingement syndrome of shoulder region??M75.40 5.??Degenerative joint disease of shoulder region??M19.019 The patient demonstrates evidence of bilateral shoulder??pain and weakness??secondary to a known left rotator cuff tear,??subacromial impingement syndrome,??AC joint??pain,??and chronic proximal biceps tendinosis.?? He demonstrates evidence of a right shoulder rotator cuff tear, which may be large given his weakness??in 2 planes,??subacromial impingement syndrome, AC joint??pain with loose body, and chronic proximal biceps tendinosis. ??The treatment options were discussed with the patient who was successfully managed previously with conservative means. ??I therefore??printed out the Bioaxial exer cises for the shoulder. ??I have also prescribed a course of physical therapy for bilateral shoulders.?? The patient verbalized understanding and agreed with the above plan. ??We will see the patientin 6 weeks for follow-up. ??All questions were answered. ?? I personally reviewed the patient's referral, outside consultation notes, previous radiographic images and results, and relevant tests. ?? Thank you for the courtesy of this referral. Referral Orders Referral Management, Medical Service: Physical Therapy, Reason: PT/OT: Bilateral shoulder rotator cuff tear, subacromial impingement syndrome, AC DJD, and biceps tendinitis, Start: 08/21/22 Follow Up Instructions With When Contact Information Follow up with Orthopedic In 6 weeks Additional Instructions: Problem List/Past Medical History Ongoing Sharma's esophagus Biceps tendinitis Degenerative joint disease of shoulder region Esophageal dysphagia Gastro-esophageal reflux disease with esophagitis Gastroesophageal reflux disease History of alcohol abuse History of partial resection of colon Impingement syndrome of shoulder region Nontraumatic rupture of rotator cuff of left shoulder Nontraumatic rupture of rotator cuff of right shoulder Shoulder pain Historical No qualifying data Medications allopurinol 100 mg oral tablet amLODIPine 5 mg oral tablet hydroCHLOROthiazide 25 mg oral tablet lansoprazole 30 mg oral delayed release capsule lisinopril 5 mg oral tablet metoprolol tartrate 100 mg oral tablet, BID Toprol-XL 100 mg oral tablet, extended release Vitamin B-12 500 mcg oral tablet Zestril 20 mg oral tablet Allergies Morphine Sulfate ER??(Unknown) morphine??(itchy, rash) Social History Electronic Cigarette/Vaping Electronic Cigarette Use: Never. Tobacco Never tobacco user Tobacco Use:. Diagnostic Results Diagnostic Study Interpretation: Indication for study: Right shoulder pain and weakness Views: 3 views of the right shoulder ?? I personally viewed and interpreted the radiographs in the generation of this report. ?? Findings: No fracture or dislocation is observed. ??Mild anterior glenohumeral joint space narrowing is present. ??No os acromiale is present. ??The AC joint appears to be??intact with a small??faintossicle about the AC joint. ??Visualized portions of the right lung field demonstrate no evidence of discrete mass. ??A type II acromion is present. ? Indication for study: Left shoulder pain and weakness Views: 3 views of the left shoulder ?? I personally viewed and interpreted the radiographs in the generation of this report. ?? Findings: No fracture or dislocation is observed. ??The glenohumeral joint is preserved. ??No osacromiale is present. ??A type II acromion is present. ??The AC joint is preserved. ??Visualized portions of the left lung field demonstrate no evidence of discrete masses. Electronically Signed on 08/21/22 09:14 AM Evans Toure MD Patient Care team information Care Team Personnel Name: JAYME HENDRICKS, VALERIA Zapata Position: No Access Member Role: Primary Care Physician Address: Address: [address] [place] [address] Care Team Related Persons Name: CAMILLA LINK Address: Home [address] Name: SHARIF LINK Address: Home [address] Name: AYUSH LINK Address: [address]
--- OUTSIDE RECORDS SUMMARY | 2023-12-10 04:56 | XMS_ITS | Encounter Summary ---
Author Organization [facility] Address [address] [place] [address] Care Team Providers Care Vp Of Technology Name Role Phone Slade Tran MD Primary Care Provider [phone] Encounter Details Date Type Department Care Team (Late st Contact Info) Description 09/23/2023 Lab Requisition [facility] Pathology & Laboratory Medicine - [facility] [address], [place] [address] Outr Resulting Lab, Provider Social History Tobacco [...] Procedure Name Priority Date/Time Associated Diagnosis Comments SPEP, INCLUDES QUANTITATION OF MONOCLONAL SPIKE PERFORMABLE Today 09/23/2023 12:58 EDT IMMUNOGLOBULINS Routine 09/23/2023 12:58 EDT SPEP, INCLUDES QUANTITATION OF MONOCLONAL SPIKE Routine 09/23/2023 12:58 EDT PROTEIN, TOTAL Today 09/23/2023 12:58 EDT documented in this encounter Results * (ABNORMAL) SPEP, INCLUDES QUANTITATION OF MONOCLONAL SPIKE PERFORMABLE (09/23/2023 12:58 EDT) Albumin % 61.9 55.8 - 66.1 % 09/24/2023 13:49 [facility] Albumin g/dL 4.1 3.6 - 5.2 g/dL 09/24/2023 13:49 [facility] Alpha-1 % 4.5 2.9 - 4.9 % 09/24/2023 13:49 [facility] Alpha-1 g/dL 0.30 0.15 - 0.40 g/dL 09/24/2023 13:49 [facility] Alpha-2 % 12.3(H) 7.1 - 11.8 % 09/24/2023 13:49 [facility] Alpha-2 g/dL 0.80 0.50 - 1.00 g/dL 09/24/2023 13:49 [facility] Beta % 10.3 8.4 - 13.1 % 09/24/2023 13:49 [facility] Beta g/dL 0.70 0.60 - 1.20 g/dL 09/24/2023 13:49 EDT [facility] Gamma % 11.0(L) 11.1 - 18.8 % 09/24/2023 13:49 EDT [facility] Gamma g/dL 0.70 0.60 - 1.60 g/dL 09/24/2023 13:49 T [facility] SPEP Comment No apparent monoclonal protein seen on serum electrophoresis 09/24/2023 13:49 EDT [facility] Comment:See scanned/suppleme ntary report. Total Protein 6.6 6.3 - 8.2 g/dL 09/24/2023 13:49 EDT [facility] Blood VENOUS BLOOD / Unknown 09/23/2023 12:58 EDT 09/23/2023 21:05 EDT Provider Outr Resulting Lab CHEMISTRY & BLOOD GAS ORDERABLES Performing Organization Address [facility] Co de Phone Number [facility] [address] [place] [address] * PROTEIN, TOTAL (09/23/2023 12:58 EDT) Blood VENOUS BLOOD / Unknown 09/23/2023 12:58 EDT 09/23/2023 21:05 EDT Provider Outr Resulting Lab CHEMISTRY & BLOOD GAS ORDERABLES Performing Organization Address [facility] Co de Phone Number [facility] [address] [place], [place] [id number] * IMMUNOGLOBULINS (09/23/2023 12:58 EDT) IgG 671 610 - 1,616 mg/dL 09/24/2023 8:29 EDT [facility] IgA 144 85 - 499 mg/dL 09/24/2023 8:29 EDT [facility] IgM 120 35 - 242 mg/dL 09/24/2023 8:29 EDT [facility] Blood VENOUS BLOOD / Unknown 09/23/2023 12:58 EDT 09/23/2023 21:05 EDT Provider Outr Resulting Lab CHEMISTRY & BLOOD GAS ORDERABLES [facility] [address] [place], [place] [address] documented in this encounter Visit Diagnoses Not on filedocumented in this encounter Care Teams Vp Of Technology Relationship Specialty Start Date End Date Slade Tran MD [address] [place] [address] PCP - General 11/12/22 documented as of this encounter
--- OUTSIDE RECORDS SUMMARY | 2023-12-10 04:56 | XMS_ITS | Encounter Summary ---
Author Organization [facility] Address [address] [place] [address] Care Team Providers Care Director Perioperative Name Role Phone Jorge Chauhan MD Primary Care Provider Reason for Visit * Reason Onset Date Comments Follow-up Diagnostic PSG 10/27/2021 Encounter Details Date Type Department Care Team (Late st Contact Info) Description 10/27/2021 Telephone [facility] General Surgery - [address] [id number] Ollie Lee MD [address] [place] [address], [address] [place] [address] Follow-up Diagnostic PSG Social History Tobacco Use Types Packs/Day Years [...] No 10/25/2021 documented as of this encounter Miscellaneous Notes * Telephone Encounter - Leni Blanchard RN - 10/27/2021 1611 EDT Mathew is calling requesting a refill of dilaudid. He cannot take ibuprofen, and is taking the 650mg Tylenol every 4 hours. He is taking the dilaudid every [address] Lee and Dr. Herndon- Dr. Herndon will send a refill to patient's preferred pharmacy. Mathew is aware. * Telephone Encounter - Traci Barfield - 10/27/2021 1552 EDT Patient had a lap paraesophageal hernia surgery on 10/25 states his pain is still a 6-8 level. Needs pain meds documented in this encounter Plan of Treatment Not on file documented as of this encounter Visit Diagnoses Not on filedocumented in this encounter Care Teams Director Perioperative Relationship Specialty Start Date End Date Jorge Chauhan MD [address] [place] [id number] PCP - General Family Medicine - Primary Care 10/18/21 11/22/21 documented as of this encounter
--- OUTSIDE RECORDS SUMMARY | 2023-12-10 04:56 | XMS_ITS | Continuity of Care Document ---
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 ARMANDO ACUNA [facility] [address] [place] [address] 10/25/2023 07:51:34 10/25/2023 08:43:53 Chronic kidney disease stage 4 [id number] Anemia in chronic kidney disease [id number] Secondary hyperparathyroidism [id number] Essential hypertension [id number] Chronic al coholism in remission [id number] Health Concerns Section Related Observation LastModified by Organization Detai ls LastModified Time None Recorded Concern Status LastModified by Organization Details LastModified Time None Recorded Payers Encounter Date Sequence Insurance Name Policy Number Policy Banerjee Covered Member ID Banerjee Member ID Guarantor Name 10/25/2023 1 [id number]IC[place]/A DVANTAGE - PPO) [id number] Mathew Mendez [id number] Mathew Mendez Notes Date Note Type Note Provider Name and Address Organization Details Recorded Time 4 text/html HPI Notes: Pt, 68-M, here to establish care with new provider as his prior left the practice. He has notable medical hx. of alcohol dependence w/episodic pancreatitis, Barrettt's Esophagus, CKD IV, HTN, diverticulitis, exocrine pancreatic insufficiency, HLD, hyperparathyroidism due to renal insufficincy, TERE, obstructed diaphragmatic hernia, Vit, D Deficiency. Duration years, see med list for modifying factors. CKD IV secondary to HTN is likely per Nephrology (Dr. Huynh) note review from [facility] [place]/2023. Last Creatinine 3.21 09/29/2023 at [facility]. Standing order at [facility] for BMP per [facility] Nephrology. They are considering kidney biopsy per their last note after [facility] urine analysis was normal. Had unexplained episode of abdominal pain earlier this year resulting in ED visit and pain resolved, but dehydration perhaps contributory to increase in baseline creatinine elevation following this episode. Pt. guides that he is now taking 1 teaspoon of baking soda daily. He will maintain this till he sees Dr. Huynh again on the . He is having endo/colo w/Dr. Paez in October. ACD: Pt. is still taking 324 EOD. IBS Like Symptom: Pt. has some spells of increasing of BM periodically since hiatal hernia w/Dr. Lemus. He will feel his appetite go downhill and decrease intake, then he will have the increased frequency. HTN: Nephrology increased lisinopril to 10 mg at last 09/29/2023 visit. Also on SGLTi as well and metoprolol. Hyper-parathyroidism secondary to CKD: Hi is taking Calcitrol, but he is taking B complex, but not D complex. Alcohol: Pt. has been abstinent for 2-years. He did counselling and attends AA. He feels he might be done, or he says, I hope that I am done. Pt, 68-M, here to establish care with new provider as his prior left the practice. He has notable medical hx. of alcohol dependence w/episodic pancreatitis, Barrettt's Esophagus, CKD IV, HTN, diverticulitis, exocrine pancreatic insufficiency, HLD, hyperparathyroidism due to renal insufficincy, TERE, obstructed diaphragmatic hernia, Vit, D Deficiency. Duration years, see med list for modifying factors. CKD IV secondary to HTN is likely per Nephrology note review from [facility] 09/29/2023. Last Creatinine 3.21 09/29/2023 at [facility]. Standing order at [facility] for BMP per [facility] Nephrology. They are considering kidney biopsy per their last note after [facility] urine analysis was normal. Had unexplained episode of abdominal pain earlier this year resulting in ED visit and pain resolved, but dehydration perhaps contributory to increase in baseline creatinine elevation following this episode. He f/u with Nephrology. HTN: Nephrology increased lisinopril to 10 mg at last 09/29/2023 visit. Also on SGLTi as well and metoprolol. Hyper-parathyroidism secondary to CKD: Sharma's Esophagus: Per Dr. Tran 05/23/2024 note: We clarified his endoscopy and colo for monitoring is due in September with Dr. Gar. I don't think he'll need a referral but we can send one if needed. He continues on PPI. ACD: Secondary to CKD, iron leves/etc check 04/2023 and wnl, but pt. was feeling more fatigued off iron supplement so he had restarted per 05/23/2023 note review. 11/10/2023 for [place], [place] and r/u visit 11/19/2023. [address], [place], [address], [facility]. 10/25/2023 09:03:32
--- OUTSIDE RECORDS SUMMARY | 2023-12-10 04:56 | XMS_ITS | Clinical Summary ---
Author Organization [facility] Address [address] [place] [address] Care Team Providers Care Information Security Consultant Name Role Phone Slade Tran MD Primary Care Provider [phone] Allergies Active Allergy Reactions Criticality Noted Date Comments Morphine Hives 07/31/2021 itchy Tramadol Nausea And Vomiting 10/25/2021 Medications Medication Sig Dispensed Refills Start Date End Date Status allopurinoL (ZYLOPRIM) 100 mg tablet Take 100 mg by mouth daily. Active metoprolol TARtrate (LOPRESSOR) 25 mg tablet Take 0.5 Tablets by mouth 2 times daily. 30 Tablet 4 08/11/2021 Active lisinopriL (PRINIVIL) 5 mg tablet Take 1 Tablet by mouth daily. Active cyanocobalamin, vitamin B-12, 5,000 mcg tablet, IR and ER, biphasic Take 500 mcg by mouth daily. Active omeprazole (PRILOSEC) 40 mg capsule Take 1 Capsule by mouth daily. Active amLODIPine (NORVASC) 10 mg tablet Take 1 Tablet by mouth daily. Active acetaminophen (TYLENOL) 325 mg tablet Take 2 Tablets by mouth every 4 hours as needed for Pain. 10/26/2021 Active HYDROmorphone (DILAUDID) 2 mg tablet Take 1 Tablet by mouth every 6 hours as needed for Pain. Daily Max: 8 mg 10 Tablet 10/26/2021 Active Additional Information Patient not taking.Reported on 11/12/2022 HYDROmorphone (DILAUDID) 2 mg tablet Take 1 Tablet by mouth every 8 hours as needed for Pain. Daily Max: 6 mg 10 Tablet 10/27/2021 Active Additional Information Patient not taking.Reported on 11/12/2022 ondansetron (ZOFRAN-ODT) 4 mg disintegrating tablet Take 1 Tablet by mouth every 8 hours as needed for Nausea. 15 Tablet 2 11/23/2021 Active Additional Information Patient not taking.Reported on 08/02/2022 ergocalciferol, vitamin D2, (VITAMIN D2 ORAL) Take by mouth. Active CALCITRIOL ORAL Take by mouth. Activ e MULTIVITAMIN ORAL Take by mouth. Act therese Active Problems Problem Noted Date Diagnosed Date Incisional hernia, without obstruction or gangre ne 08/02/2022 Paraesophageal hiatal hernia 10/25/2021 Paraesophageal hernia 08/01/2021 Encounters Date Type Department Care Team Description 09/23/2023 Lab Requisition [facility] Pathology & Laboratory [address] [address] Outr Resulting Lab, Provider 09/23/2023 Lab Requisition [facility]ology & Laboratory [address] [address] Outr Resulting Lab, Provider from Last 3 Months Immunizations Name Administration Dates Next Due Covid-19 mRNA Vaccine (PFIZE R COVID-19) PF 0.3 ml IM (12 yrs+) 03/13/2021,08/16/2020,07/25/2020 Surgical History Surgery Date Site/Laterality Comments ABDOMINAL EXPLORATION SURGERY 07/25/2021 - 08/24/2021 exploratory laparotomy and partial gastropexy. It was incarcerated. Dr. Lee note 08-25-21 I do not believe that the hernia was reduced. TOTAL KNEE ARTHROPLASTY Right around 2017 COLECTOMY 05/27/2004 - 05/26/2005 with colostomy OTHER SURGICAL HISTORY 05/27/2005 - 05/26/2006 Colostomy reversal Medical History Medical History Date Comments Paraesophageal hernia History of alcohol abuse absent since 01/2021. quit 01/2021. goes to AA per relapse 05/2021 he states 2-3 shot a day. per 6 shot a day.. last drink 10/18/21 Diverticulitis Around 2004 david gent partial resection with colostomy, colostomy reveral a year later Chronic alcoholic pancreatitis (HCC-CMS) no issues, no hospitalizations. Acute gastric volvulus 06/2021 s/p emerg ent surgery 07/2021 History of Sharma's esophagus f ollowed by GI Hyperlipidemia Hx of skin cancer, basal cell 06/2019 le ft ear History of general anesthesia History of epidural anesthesia s yovana with knee surg Sleep apnea does not use cpa p machine Activity, other involving cardiorespiratory exercise very active, is a gomez, c an amb 2 flight of stairs without SOB HTN (hypertension) lisinopril w/ gd effect Gout allopurinol effe ctive for years GERD (gastroesophageal reflux disease) omeprazole very effective, can lye flat Anemia chronic secondar y to CKD Lumbar spondylosis back, sees iropractor about every 4 months Cancer ([facility]) skin cancer lef t ear, removed 2019 Eczema right ankle, has a cream from dermatology CKD (chronic kidney disease) Sta ge IV, followed by nephrology @ [facility], no restrictions per pt Wears hearing aid in both ears Family History Medical History Relation Comments High Cholesterol Brother 1 Heart Disease Father High Cholesterol Father Alcohol Abuse Maternal Grandmother Cancer Mother breast Alcohol Abuse Paternal Grandfather High Cholesterol Paternal Grandfather High Cholesterol Paternal Grandmother Stroke Paternal Grandmother Alcohol Abuse Sister 1 Depression Sister 1 Alcohol Abuse Sister 2 Cancer Son testicular Relation Status Comments Brother 1 Brother 2 Alive Brother 3 Alive Brother 4 Alive Brother 5 Alive Father Maternal Grandmother Mother Alive Paternal Grandfather Paternal Grandmother Sister 1 Sister 2 Alive Sister 3 Alive Son Alive Social History Tobacco Use Types Packs/Day Years Used Date Smoking Tobacco: Never Smokeless Tobacco: Never Tobacco Cessation:Counseling Given: Not Answered Alcohol Use Standard Drinks/Week Comments Not Currently [...] 9:41 EDT Sexual Orientation Not on file Obstetrics History Last Filed Vital Signs Vital Sign Reading Time Taken Comments Blood Pressure 120/72 11/12/2022 1141 EDT Pulse 80 11/12/2022 1141 EDT Temperature 36.2 ??C (97.2 ??F) 10/26/2021 0820 EDT Respiratory Rate 20 10/26/2021 0957 EDT Oxygen Saturation 92% 10/26/2021 1103 EDT Inhaled Oxygen Concentration - - Weight 73.8 kg (162 lb 12.8 oz) 11/12/2022 1141 EDT Height 167.6 cm (5' 5.98) 11/12/2022 1141 EDT Body Mass Index 26.29 11/12/2022 1141 EDT Plan of Treatment Health Maintenance Due Date Last Done Comments RSV Immunization ( o r 60+ Years) (1 - 1-dose 60+ series) 2014 Fall Risk Screening 2019 COVID-19 Vaccine ( season) 2023 03/13/2021, 08/16/2020, 07/25/2020 Hepatitis C Screen Completed 10/20/2021 Medical Devices Implanted Type Area Food Manager Device Identifier Shelf Expiration Date Model / Serial / Lot Mesh Hernia 4 X 8cm [employer] Core Permanent - [id number] Implanted:Qty: 1 on 10/25/2021 by Ollie Lee MD at [facility] Mesh N/A: Esophagus [employer] 06/26/2023 [id number] / / [id number] Procedures Procedure Name Priority Date/Time Associated Diagnosis Comments URINE MONOCLONAL PROTEIN STUDY (UPEP WITH IMMUNOTYPING) PERFORMABLE Today 09/23/2023 12:58 EDT PROTEIN, TOTAL, RANDOM, URINE Today 09/23/2023 12:58 EDT URINE MONOCLONAL PROTEIN STUDY (UPEP WITH IMMUNOTYPING) Routine 09/23/2023 12:58 EDT SPEP, INCLUDES QUANTITATION OF MONOCLONAL SPIKE PERFORMABLE Today 09/23/2023 12:58 EDT PROTEIN, TOTAL Today 09/23/2023 12:58 EDT SPEP, INCLUDES QUANTITATION OF MONOCLONAL SPIKE Routine 09/23/2023 12:58 EDT IMMUNOGLOBULINS Routine 09/23/2023 12:58 EDT HEPATITIS C AB W REFLEX TO HCV RNA BY PCR Routine 10/20/2021 16:02 EDT from Last 3 Months or Most Recently Relevant to Health Maintenance Results * URINE MONOCLONAL PROTEIN STUDY (UPEP WITH IMMUNOTYPING) PERFORMABLE (09/23/2023 12:58 EDT) Albumin, Urine % 69.2 N/A % 09/24/19 24 15:06 EDT [facility] Albumin, Urine mg/dL 191 mg/dL 09/24/2023 15:06 [facility] Globulins, Urine % 30.8 N/A % 09/24/2023 15:06 T [facility] Globulins, Urine mg/dL 85 mg/dL 09/24/2023 15:06 [facility] UPEP Comment See Comment 09/24/2023 15:06 [facility] Comment:Electrophoresis scre ening performed; Immunotyping to follow. ??See scanned/supplementary report. Immunotyping, Urine Current Interpretatio n: Negative for free monoclonal light chains. Reviewed by: Ortega Prado MD 09/24/2023 1351 09/24/2023 15:06 T [facility] Total Protein, Urine 276 See Note mg/dL 09/24/2023 15:06 [facility] Comment: NOTE: Reference range has not been established for total protein concentration in random urine specimens. Urine URINE / Unknown 09/23/2023 1 2:58 EDT 09/23/2023 21:05 EDT Provider Outr Resulting Lab URINALYSIS O RDERABLES [facility] [address] [place] [address] * (ABNORMAL) SPEP, INCLUDES QUANTITATION OF MONOCLONAL SPIKE PERFORMABLE (09/23/2023 12:58 EDT) Albumin % 61.9 55.8 - 66.1 % 09/24/2023 13:49 [facility] Albumin g/dL 4.1 3.6 - 5.2 g/dL 09/24/2023 13:49 [facility] Alpha-1 % 4.5 2.9 - 4.9 % 09/24/2023 13:49 [facility] Alpha-1 g/dL 0.30 0.15 - 0.40 g/dL 09/24/2023 13:49 [facility] Alpha-2 % 12.3(H) 7.1 - 11.8 % 09/24/2023 13:49 [facility] Alpha-2 g/dL 0.80 0.50 - 1.00 g/dL 09/24/2023 13:49 [facility] Beta % 10.3 8.4 - 13.1 % 09/24/2023 13:49 [facility] Beta g/dL 0.70 0.60 - 1.20 g/dL 09/24/2023 13:49 [facility] Gamma % 11.0(L) 11.1 - 18.8 % 09/24/2023 13:49 [facility] Gamma g/dL 0.70 0.60 - 1.60 g/dL 09/24/2023 13:49 [facility] SPEP Comment No apparent monoclonal protein seen on serum electrophoresis 09/24/2023 13:49 [facility] Comment:See scanned/suppleme ntary report. Total Protein 6.6 6.3 - 8.2 g/dL 09/24/2023 13:49 [facility] Blood VENOUS BLOOD / Unknown 09/23/2023 12:58 EDT 09/23/2023 21:05 EDT Provider Outr Resulting Lab CHEMISTRY & BLOOD GAS ORDERABLES [facility] [address], [place] [phone] * PROTEIN, TOTAL, RANDOM, URINE (09/23/2023 12:58 EDT) Urine URINE / Unknown 09/23/2023 1 2:58 EDT 09/23/2023 21:05 EDT Provider Outr Resulting Lab URINALYSIS O RDERABLES Performing Organization Address City/[facility]/ZIP Co de Phone Number [facility] [address] [place] [address] * IMMUNOGLOBULINS (09/23/2023 12:58 EDT) IgG 671 610 - 1,616 mg/dL 09/24/2023 8:29 EDT [facility] IgA 144 85 - 499 mg/dL 09/24/2023 8:29 EDT [facility] IgM 120 35 - 242 mg/dL 09/24/2023 8:29 EDT [facility] Blood VENOUS BLOOD / Unknown 09/23/2023 12:58 EDT 09/23/2023 21:05 EDT Provider Outr Resulting Lab CHEMISTRY & BLOOD GAS ORDERABLES Performing Organization Address [facility] Co de Phone Number [facility] [address] [place] [phone] * PROTEIN, TOTAL (09/23/2023 12:58 EDT) Blood VENOUS BLOOD / Unknown 09/23/2023 12:58 EDT 09/23/2023 21:05 EDT Provider Outr Resulting Lab CHEMISTRY & BLOOD GAS ORDERABLES Performing Organization Address City/[facility]/ZIP Co de Phone Number [facility] [address], [place] [phone] * HEPATITIS C AB W REFLEX TO HCV RNA BY PCR (10/20/2021 16:02 EDT) Hep C Antibody Negative Negative 10/23/2021 10:57 EDT [facility] Blood VENOUS BLOOD / Unknown 10/20/2021 16:02 EDT 10/21/2021 22:12 EDT Provider Outr Resulting Lab CHEMISTRY & BLOOD GAS ORDERABLES [facility] [address] [place] [address] from Last 3 Months or Most Recently Relevant to Health Maintenance Advance Directives For more information, please contact: [phone] Documents on File Type Date Recorded Patient Director Athletic Expl anation Advance Directive 08/16/2021 7:52 Appt Of Health Care Agent-Signed * Full Code (Latest Code Status on File) Date Activated Date Inactivated Comments 10/25/2021 6:16 10/26/2021 15:43 Question Answer Comments When the patient has NO PULSE: Full Code / CPR Who Made the Decision? Default/Not Discussed * Full Code Date Activated Date Inactivated Comments 07/31/2021 19:37 08/11/2021 14:52 Question Answer Comments When the patient has NO PULSE: Full Code / CPR Who Made the Decision? Default/Not Discussed Care Teams Information Security Consultant Relationship Specialty Start Date End Date Slade Tran MD [facility] [place] [address] PCP - General 11/12/22
--- OUTSIDE RECORDS SUMMARY | 2023-12-10 04:56 | XMS_ITS | Encounter Summary ---
Author Organization [facility] Address [address] [place] [address] Care Team Providers Care Police Liaison Name Role Phone Slade Tran MD Primary Care Provider [phone] Encounter Details Date Type Department Care Team (Late st Contact Info) Description 09/23/2023 Lab Requisition [facility] Pathology & Laboratory Medicine - [facility] [address] [place], [place] [phone] Outr Resulting Lab, Provider Social History Tobacco [...] (UPEP WITH IMMUNOTYPING) Routine 09/23/2023 12:58 EDT documented in this encounter Results * URINE MONOCLONAL PROTEIN STUDY (UPEP WITH IMMUNOTYPING) PERFORMABLE (09/23/2023 12:58 EDT) Albumin, Urine % 69.2 N/A % 09/24/19 24 15:06 [facility] Albumin, Urine mg/dL 191 mg/dL 09/24/2023 15:06 [facility] Globulins, Urine % 30.8 N/A % 09/24/2023 15:06 [facility] Globulins, Urine mg/dL 85 mg/dL 09/24/2023 15:06 [facility] UPEP Comment See Comment 09/24/2023 15:06 [facility] Comment:Electrophoresis scre ening performed; Immunotyping to follow. ??See scanned/supplementary report. Immunotyping, Urine Current Interpretatio n: Negative for free monoclonal light chains. Reviewed by: Ortega Prado MD 09/24/2023 1351 09/24/2023 15:06 [facility] Total Protein, Urine 276 See Note mg/dL 09/24/2023 15:06 [facility] Comment: NOTE: Reference range has not been established for total protein concentration in random urine specimens. Urine URINE / Unknown 09/23/2023 1 2:58 EDT 09/23/2023 21:05 EDT Provider Outr Resulting Lab URINALYSIS O RDERABLES Performing Organization Address [facility] Co de Phone Number [facility] [address] [place] [address] * PROTEIN, TOTAL, RANDOM, URINE (09/23/2023 12:58 EDT) Urine URINE / Unknown 09/23/2023 1 2:58 EDT 09/23/2023 21:05 EDT Provider Outr Resulting Lab URINALYSIS O RDERABLES Performing Organization Address City/[facility] Co de Phone Number [facility] [address] [place] [address] documented in this encounter Visit Diagnoses Not on filedocumented in this encounter Care Teams Police Liaison Relationship Specialty Start Date End Date [place] [address] PCP - General 11/12/22 documented as of this encounter
--- OUTSIDE RECORDS SUMMARY | 2023-12-10 04:56 | XMS_ITS | Referral Summary ---
Author Organization [facility] Address [address] [place] [address] Care Team Providers Care Volunteer Services Manager Name Role Phone Slade Tran MD Primary Care Provider [phone] Encounters Date Type Department Care Team Description 09/23/2023 Lab Requisition [facility] Pathology & Laboratory [address] [address] Outr Resulting Lab, Provider 09/23/2023 Lab Requisition [facility] Pathology & Laboratory [address] [address] Outr Resulting Lab, Provider from Last 3 Months Allergies Active Allergy Reactions Criticality Noted Date [...] Paraesophageal hiatal hernia 10/25/2021 Paraesophageal hernia 08/01/2021 Immunizations Name Administration Dates Next Due Covid-19 mRNA Vaccine (PFIZE R COVID-19) PF 0.3 ml IM (12 yrs+) 03/13/2021,08/16/2020,07/25/2020 Social History Tobacco Use Types Packs/Day Years [...] 9:41 EDT Sexual Orientation Not on file Last Filed Vital Signs Vital Sign Reading [...] Body Mass Index 26.29 11/12/2022 1141 EDT Functional Status Functional Status Response Date of [...] (5 years old or older) No 10/25/2021 Plan of Treatment Not on file Medical Devices Implanted Type [employer] Device Identifier Shelf Expiration Date Model / Serial / Lot Mesh Hernia 4 X 8cm [employer] Core Permanent - [id number] Implanted:Qty: 1 on 10/25/2021 by Ollie Lee MD at [facility] Mesh N/A: Esophagus [employer] 06/26/2023 [id number] / / [id number] Procedures Procedure [...] % 69.2 N/A % 09/24/19 24 15:06 [facility] Albumin, Urine mg/dL 191 mg/dL 09/24/2023 15:06 [facility] Globulins, Urine % 30.8 N/A % 09/24/2023 15:06 [facility] Globulins, Urine mg/dL 85 mg/dL 09/24/2023 15:06 [facility] UPEP Comment See Comment 09/24/2023 15:06 [facility] Comment:Electrophoresis scre ening performed; Immunotyping to follow. ??See scanned/supplementary report. Immunotyping, Urine Current Interpretatio n: Negative for free monoclonal light chains. Reviewed by: Ortega Prado MD 09/24/2023 1351 09/24/2023 15:06 [facility] Total Protein, Urine 276 See Note mg/dL 09/24/2023 15:06 [facility] Comment: NOTE: Reference range has not been established for total protein concentration in random urine specimens. Urine URINE / Unknown 09/23/2023 1 2:58 EDT 09/23/2023 21:05 EDT Provider Outr Resulting Lab URINALYSIS O RDERABLES [facility] [address] [place] [address] * (ABNORMAL) SPEP, INCLUDES QUANTITATION OF MONOCLONAL SPIKE PERFORMABLE (09/23/2023 12:58 EDT) Albumin % 61.9 55.8 - 66.1 % 09/24/2023 13:49 [facility] Albumin g/dL 4.1 3.6 - 5.2 g/dL 09/24/2023 13:49 [facility] Alpha-1 % 4.5 2.9 - 4.9 % 09/24/2023 13:49 [facility] Alpha-1 g/dL 0.30 0.15 - 0.40 g/dL 09/24/2023 13:49 [facility] Alpha-2 % 12.3(H) 7.1 - 11.8 % 09/24/2023 13:49 [facility] Alpha-2 g/dL 0.80 0.50 - 1.00 g/dL 09/24/2023 13:49 [facility] Beta % 10.3 8.4 - 13.1 % 09/24/2023 13:49 [facility] Beta g/dL 0.70 0.60 - 1.20 g/dL 09/24/2023 13:49 [facility] Gamma % 11.0(L) 11.1 - 18.8 % 09/24/2023 13:49 [facility] Gamma g/dL 0.70 0.60 - 1.60 g/dL 09/24/2023 13:49 [facility] SPEP Comment No apparent monoclonal protein seen on serum electrophoresis 09/24/2023 13:49 [facility] Comment:See scanned/suppleme ntary report. Total Protein 6.6 6.3 - 8.2 g/dL 09/24/2023 13:49 [facility] Blood VENOUS BLOOD / Unknown 09/23/2023 12:58 EDT 09/23/2023 21:05 EDT Provider Outr Resulting Lab CHEMISTRY & BLOOD GAS ORDERABLES Performing Organization Address [facility]/ZIP Co de Phone Number [facility] [address], [place] [address] * PROTEIN, TOTAL, RANDOM, URINE (09/23/2023 12:58 EDT) Urine URINE / Unknown 09/23/2023 1 2:58 EDT 09/23/2023 21:05 EDT Provider Outr Resulting Lab URINALYSIS O RDERABLES Performing Organization Address [facility] Co de Phone Number [facility] [address], [place] [address] * IMMUNOGLOBULINS (09/23/2023 12:58 EDT) IgG 671 610 - 1,616 mg/dL 09/24/2023 8:29 EDT [facility] IgA 144 85 - 499 mg/dL 09/24/2023 8:29 EDT [facility] IgM 120 35 - 242 mg/dL 09/24/2023 8:29 EDT [facility] Blood VENOUS BLOOD / Unknown 09/23/2023 12:58 EDT 09/23/2023 21:05 EDT Provider Outr Resulting Lab CHEMISTRY & BLOOD GAS ORDERABLES Performing Organization Address [facility]/ZIP Co de Phone Number [facility] [address], [place] [id number] * PROTEIN, TOTAL (09/23/2023 12:58 EDT) Blood VENOUS BLOOD / Unknown 09/23/2023 12:58 EDT 09/23/2023 21:05 EDT Provider Outr Resulting Lab CHEMISTRY & BLOOD GAS ORDERABLES Performing Organization Address City/[facility]/ZIP Co de Phone Number [facility] [address] [place] [address] * HEPATITIS C AB W REFLEX TO HCV RNA BY PCR (10/20/2021 16:02 EDT) Hep C Antibody Negative Negative 10/23/2021 10:57 EDT [facility] Blood VENOUS BLOOD / Unknown 10/20/2021 16:02 EDT 10/21/2021 22:12 EDT Provider Outr Resulting Lab CHEMISTRY & BLOOD GAS ORDERABLES [facility] [address] [place] [address] from Last 3 Months or Most Recently Relevant to Health Maintenance Advance Directives For more information, please contact: [phone] Documents on File Type Date Recorded Patient Purchase Price Analyst Expl anation Advance 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 Default/Not Discussed Care Teams Volunteer Services Manager Relationship Specialty Start Date End [place] [address] PCP - General 11/12/22
--- OUTSIDE RECORDS SUMMARY | 2023-12-10 04:56 | XMS_ITS | Encounter Summary ---
Author Organization [facility] Address [address] [place] [address] Care Team Providers Care Insurance Job Titles Name Role Phone Slade Tran MD Primary Care Provider [phone] Reason for Visit * Reason Comments Follow-up Ugi same day Encounter Details Date Type Department Care Team (Late st Contact Info) Description 11/12/2022 11:40 EDT Office Visit [facility] General Surgery - [address] [phone] Ollie Lee MD [address] [place] [address], [address] [place] [address] Paraesophageal hiatal hernia (Primary Dx) Social History Tobacco Use Types Packs/Day Years [...] on file documented as of this encounter Last Filed Vital Signs Vital Sign Reading Time Taken Comments Blood Pressure 120/72 11/12/2022 1141 EDT Pulse 80 11/12/2022 1141 EDT Temperature - - Respiratory Rate - - Oxygen Saturation - - Inhaled Oxygen Concentration - - Weight 73.8 kg (162 lb 12.8 oz) 11/12/2022 1141 EDT Height 167.6 cm (5' 5.98) 11/12/2022 1141 EDT Body Mass Index 26.29 11/12/2022 1141 EDT documented in this encounter Functional Status Functional Status Response [...] No 10/25/2021 documented as of this encounter Progress Notes * Abril Shabazz MA - 11/12/2022 1140 EDT [facility] General Surgery Services Patient Name: Mathew Mendez Date: 11/12/2022 GERD-HRQL SCALE Patient symptoms are noted as follows: How bad is your heartburn? 0 = No symptoms Heartburn when lying down? 0 = No symptoms Heartburn when standing up? 0 = No symptoms Heartburn after meals? 0 = No symptoms Does heartburn change your diet? 0 = No symptoms Does heartburnwake you from sleep? 0 = No symptoms Do you have difficulty swallowing? 0 = No symptoms Do you have pain with swallowing? 0 = No symptoms Do you have gassy or bloatingfeelings? 3 = Symptoms bothersome everyday If you take medication, does it affect your daily life? 1 = Symptoms noticeable, but not bothersome How satisfied are you with your present condition? Dissatisfied * Ollie Lee MD - 11/12/2022 1140 EDT Date of Service: 11/12/2022 I saw Mathew Mendez in the office today in follow up for a laparoscopic paraesophageal hernia repair. He is experiencing no chest or abdominal pain. He is eating well, and has no dysphagia and no gasbloat. He feels quite good after his paraesophageal hernia repair. His only complaint now is constipation and is trying to work out a bowel regimen. UGI today was negative for recurrent hiatal hernia, and personally reviewed by me. Physical Exam: Lung CTA, Cor RRR, Abdomen: soft benign, scars are well healed. He has some hernias to the right of midline related to his midline incision that was done for a gastropexy in [place] just before being transferred to our institution for management and later definitive paraesophageal hernia repair. They are small and only protrude when coughing. He also has a small diastases rectus Assessment and Plan: One year status post laparoscopic paraesophageal hernia repair. Mr. Mendez is doing well; fully recovered. There is a very low chance of recurrence with negative UGI. He was advised to follow up as needed. He does not want the hernias repaired. I think they are relatively small and likely just some fat containing hernias. They do not rate need to be repaired at this time. I recommended using some MiraLAX to see if he can get a better bowel regimen. If he would ever like to see one of our functional GI specialist I would suggest Dr. Berna Braxton. --Ollie Lee MD Some of this note was transcribed with [employer] dictating software. While it was proofread, it may still contain unnoticed grammatical or word errors due to incorrect transcribing. CC: Primary Care Provider: Slade Tran MD documented in this encounter Plan of Treatment Not on file documented as of this encounter Visit Diagnoses Diagnosis Paraesophageal hiatal hernia- Primary Diaphragmatic hernia without mention of obstruction or gangrene documented in this encounter Care Teams Insurance Job Titles Relationship Specialty Start Date End Date Slade Tran MD [address] [place] [address] PCP - General 11/12/22 documented as of this encounter
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
--- OUTSIDE RECORDS SUMMARY | 2023-12-10 04:56 | XMS_ITS | Continuity of Care Document ---
Author Organization [facility] Address [address] [place] [address] Care Team Providers Care Learning Program Manager Name Role Phone JAYME HENDRICKS, VALERIA Zapata Primary Care Physician [phone] Encounter LTTL_NE FIN NBR [id number] Date(s): 08/21/22 - 08/21/[address] [address]- Encounter Diagnosis Pain in left shoulder(Discharge Diagnosis) - 08/21/22 Discharge Disposition: Home or Self Care Attending Physician: Evans Toure MD Admitting Physician: Evans Toure MD Referring Physician: Evans Toure MD Allergies, Adverse Reactions, Alerts Substance Reaction Severity Status morphine itchy, rash Mild Active Morphine Sulfate ER Unknown Moderate Active Assessment and Plan Future Appointments Medications allopurinol 100 mg oral tablet 1 [...] shoulder Confirmed Active Shoulder pain Confirmed Active Results Radiology Reports * Exam Date Time Procedure Performing Provider Status 08/21/22 8:31 AM XR Shoulder Complete 2+ Views Left Bari Owens; Auth (Verified) Notes: (XR Shoulder Complete 2+ Views Left) Reason For Exam: Bilateral shoulder pain XR Shoulder Complete 2+ Views Left EXAM DESCRIPTION: XR Shoulder Complete 2+ Views Left 08/21/2022 INDICATION: BILATERAL SHOULDER PAIN COMPARISON: None IMPRESSION: No acute fracture or dislocation No significant arthritic changes No focal lytic or sclerotic lesion. JOB #: [id number] Final Signed by: Omar Keyes MD Signed (Electronic Signature): 08/21/2022 8:52 am * Exam Date Time Procedure Performing Provider Status 08/21/22 8:31 AM XR Shoulder Complete 2+ Views Right Bari Owens; Auth (Verified) Notes: (XR Shoulder Complete 2+ Views Right) Reason For Exam: Bilateral shoulder pain XR Shoulder Complete 2+ Views Right EXAM DESCRIPTION: XR Shoulder Complete 2+ Views Right 08/21/2022 INDICATION: BILATERAL SHOULDER PAIN COMPARISON: 08/30/2016 IMPRESSION: No acute fracture Stable mild widening of the right AC joint space. Right glenohumeral joint alignment is anatomic Mild glenohumeral joint arthritic changes with joint space narrowing No focal lytic or sclerotic lesion. JOB #: [id number] Final Signed by: Omar Keyes MD Signed (Electronic Signature): 08/21/2022 8:51 am Social History Social History Type Response Tobacco Never tobacco user T obacco Use:. Sex XR Shoulder - right GE 2 Views * Omar Keyes MD: VERIFY, VERIFY Event Display: Report EXAM DESCRIPTION: XR Shoulder Complete 2+ Views Right 08/21/2022 INDICATION: BILATERAL SHOULDER PAIN COMPARISON: 08/30/2016 IMPRESSION: No acute fracture Stable mild widening of the right AC joint space. Right glenohumeral joint alignment is anatomic Mild glenohumeral joint arthritic changes with joint space narrowing No focal lytic or sclerotic lesion. JOB #: [id number] Final Signed by: Omar Keyes MD Signed (Electronic Signature): 08/21/2022 8:51 am XR Shoulder - left GE 2 Views * Omar Keyes MD: VERIFY, VERIFY Event Display: Report EXAM DESCRIPTION: XR Shoulder Complete 2+ Views Left 08/21/2022 INDICATION: BILATERAL SHOULDER PAIN COMPARISON: None IMPRESSION: No acute fracture or dislocation No significant arthritic changes No focal lytic or sclerotic lesion. JOB #: [id number] Final Signed by: Omar Keyes MD Signed (Electronic Signature): 08/21/2022 8:52 am Patient Care team information Care Team Personnel Name: VALERIA DELACRUZ MD Position: No Access Member Role: Primary Care Physician Address: Address: [address] [place] [address] Care Team Related Persons Name: CAMILLA LINK Address: [address] Name: SHARIF LINK Address: Home [address] Name: AYUSH LINK Address: [address]
--- OUTSIDE RECORDS SUMMARY | 2023-12-10 04:56 | XMS_ITS | Encounter Summary ---
Author Organization [facility] Address [address] [place] [address] Care Team Providers Care Chief Librarian Music Department Name Role Phone Slade Tran MD Primary Care Provider [phone] Reason for Visit * Radiology Services (Routine/Next Available) - Authorization Not Required Specialty Diagnoses / Procedures Referred By Contac t Referred To Contact Diagnoses Paraesophageal hernia Procedures FL UGI AIR W FIELD BROOMER FL UGI AIR WO FIELD BROOMER Ollie Lee MD [address] [place] [address] [address] [place] [address] [facility] Referral ID Status Reason Start Date Expiration Date Visits Requested Visits Authorized [id number] Authorization Not Required 11/23/2021 1 1 Encounter Details Date Type Department Care Team (Latest Contact Info) Description 11/12/2022 10:01 EDT - 11/12/2022 23:59 EDT [facility] Rad[facility] Fluoroscopy - [address] [id number] Paraesophageal hernia Discharge Disposition: Home or Self Care Social History Tobacco Use Types Packs/Day Years [...] No 10/25/2021 documented as of this encounter Medications at Time of Discharge Medication Sig Dispensed Refills Start Date End Date acetaminophen (TYLENOL) 325 mg tablet Take 2 Tablets by mouth every 4 hours as needed for Pain. 10/26/2021 allopurinoL (ZYLOPRIM) 100 mg tablet Take 100 mg by mouth daily. amLODIPine (NORVASC) 10 mg tablet Take 1 Tablet by mouth daily. CALCITRIOL ORAL Take by mouth. cyanocobalamin, vitamin B-12, 5,000 mcg tablet, IR and ER, biphasic Take 500 mcg by mouth daily. ergocalciferol, vitamin D2, (VITAMIN D2 ORAL) Take by mouth. HYDROmorphone (DILAUDID) 2 mg tablet Take 1 Tablet by mouth every 8 hours as needed for Pain. Daily Max: 6 mg 10 Tablet 10/27/2021 HYDROmorphone (DILAUDID) 2 mg tablet Take 1 Tablet by mouth every 6 hours as needed for Pain. Daily Max: 8 mg 10 Tablet 10/26/2021 lisinopriL (PRINIVIL) 5 mg tablet Take 1 Tablet by mouth daily. metoprolol TARtrate (LOPRESSOR) 25 mg tablet Take 0.5 Tablets by mouth 2 times daily. 30 Tablet 4 08/11/2021 MULTIVITAMIN ORAL Take by mouth. omeprazole (PRILOSEC) 40 mg capsule Take 1 Capsule by mouth daily. ondansetron (ZOFRAN-ODT) 4 mg disintegrating tablet Take 1 Tablet by mouth every 8 hours as needed for Nausea. 15 Tablet 2 11/23/2021 documented as of this encounter Discharge Disposition Disposition Code Departure Means Destination Home or Self Care documented in this encounter Plan of Treatment Not on file documented as of this encounter Procedures Procedure Name Priority Date/Time Associated Diagnosis Comments FL UGI AIR W FIELD BROOMER Routine 11/12/2022 10 :45 EDT Paraesophageal hernia documented in this encounter Results * FL UGI AIR W FIELD BROOMER (11/12/2022 10:45 EDT) Anatomical Region Laterality Modality Body Radio Fluoroscop y 11/12/2022 12:0 1 EDT Impressions 11/12/2022 12:01 EDT 1. ??No hiatal hernia status post prior paraesophageal hernia repair. 2. ??The 13 mm barium pill stopped at the level of the GE junction and did not pass into the stomach. I have personally reviewed the images and the above interpretation and agree with the findings. Narrative 11/12/2022 12:01 EDT FL UGI AIR W FIELD BROOMER ??11/12/2022 10:30 AM Signs and Symptoms/Comments: ?? 1 year routine post-op check, r/o recurrent hiatal hernia Comparison: Fluoroscopic UGI 08/01/2021. Technique: Single and double contrast views of the thoracic esophagus, stomach, duodenal bulb, and sweep were obtained. Findings: Qi Specialist film demonstrates surgical clips projecting over the left hemiabdomen and epigastrium. Bowel gas pattern is nonobstructive. Degenerative changes are present in the spine and in both sacroiliac and hip joints. The study shows a normally distensible thoracic esophagus with normal-appearing mucosa. A hiatal hernia was not demonstrated. No gastroesophageal reflux was elicited. The stomach is normally distensible and shows normal appearing mucosa. The duodenal bulb and sweep are within normal limits. The 13 mm barium pill passed easily through the esophagus before stopping at the level of the GE junction, and did not pass into the stomach. Procedure Note Sheng Wallace MD - 11/12/2022 FL UGI AIR W FIELD BROOMER 11/12/2022 10:30 AM Signs and Symptoms/Comments: 1 year routine post-op check, r/o recurrent hiatal hernia Comparison: Fluoroscopic UGI 08/01/2021. Technique: Single and double contrast views of the thoracic esophagus, stomach,duodenal bulb, and sweep were obtained. Findings: Qi Specialist film demonstrates surgical clips projecting over the lefthemiabdomen and epigastrium. Bowel gas pattern is nonobstructive.Degenerative changes are present in the spine and in both sacroiliac andhip joints. The study shows a normally distensible thoracic esophagus withnormal-appearing mucosa. A hiatal hernia was not demonstrated. No gastroesophageal reflux waselicited. The stomach is normally distensible and shows normal appearing mucosa. The duodenal bulb and sweep are within normal limits. The 13 mm barium pill passed easily through the esophagus before stoppingat the level of the GE junction, and did not pass into the stomach. IMPRESSION 1. No hiatal hernia status post prior paraesophageal hernia repair. 2. The 13 mm barium pill stopped at the level of the GE junction and didnot pass into the stomach. I have personally reviewed the images and the above interpretation andagree with the findings. Ollie Lee MD IMG FLUOR OSCOPY ORDERABLES documented in this encounter Visit Diagnoses Diagnosis Paraesophageal hernia Diaphragmatic hernia without mention of obstruction or gangrene documented in this encounter Care Teams Chief Librarian Music Department Relationship Specialty Start Date End Date Slade Tran MD [facility] [place] [place] [address] PCP - General 11/12/22 documented as of this encounter
--- OUTSIDE RECORDS SUMMARY | 2023-12-10 04:56 | XMS_ITS | Encounter Summary ---
Author Organization [facility] Address [address] [place] [address] Care Team Providers Care Speech Lang Path Name Role Phone Jorge Chauhan MD Primary Care Provider Reason for Visit * Reason Onset Date Comments Other 10/26/2021 Encounter Details Date Type Department Care Team (Late st Contact Info) Description 10/26/2021 Telephone [facility] General Surgery - [address] [id number] Ollie Lee MD [address] [facility], [address] [place] [address] Other Social History Tobacco Use Types Packs/Day Years [...] encounter Miscellaneous Notes * Telephone Encounter - Elena Mayorga RN - 10/26/2021 1722 EDT Spoke with Yen. She states Mathew is pretty uncomfortable from 2 hour ride home. Advised to givePaul Tylenol 650 mg, apply heat or ice and have him rest. He has morphine allergy and concerned he may break out in rash. Suggested benadryl if he gets itchyand Yen thinks she has some at home. * Telephone Encounter - Balbir Bowman - 10/26/2021 1641 EDT Patients calling would like a call back from a nurse as soon as posible. Patient was discharge today and given HYDROmorphone (DILAUDID) 2 mg tablet For his pain, it is not working as he is in a lot of pain (9) and wants to know if they can get something else.. Please call documented in this encounter Plan of Treatment Not on file documented as of this encounter Visit Diagnoses Not on filedocumented in this encounter Care Teams Speech Lang Path Relationship Specialty Start Date End Date Jorge Chauhan MD [address] [place] [id number] PCP - General Family Medicine - Primary Care 10/18/21 11/22/21 documented as of this encounter
--- OUTSIDE RECORDS SUMMARY | 2023-12-10 04:56 | XMS_ITS | Encounter Summary ---
Author Organization [facility] Address [address] [place] [address] Care Team Providers Care Life Skills Consultant Name Role Phone Luis Lauren MD Primary Care Provider [phone] Reason for Visit * Reason Onset Date Comments Coordination Of Care 04/13/2022 Encounter Details Date Type Department Care Team (Late st Contact Info) Description 04/13/[address] [facility] General Surgery - [facility] [address] [place], [place] [id number] Alanna Dejesus, RN Coordination Of Care Social History Tobacco Use Types Packs/Day [...] encounter Miscellaneous Notes * Telephone Encounter - Alanna Dejesus RN - 04/13/2022 1146 EST Mathew returned this RN's call. Patient agrees seeing PCP would be reasonable and is going to follow up with them. Patient aware to contact us if he develops any new significant symptoms to include severe N/V/D and worsening pain. documented in this encounter Plan of Treatment Not on file documented as of this encounter Visit Diagnoses Not on filedocumented in this encounter Care Teams Life Skills Consultant Relationship Specialty Start Date End Date Luis Lauren MD [address] [facility] [place] [address] PCP - General Family Medicine - Primary Care 11/23/21 11/11/22 documented as of this encounter
--- OUTSIDE RECORDS SUMMARY | 2023-12-10 04:56 | XMS_ITS | Data Portability ---
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 Address Organization Details Recorded Time 61265 morphine medicatio n hives mild low 10/01/2023 7052 RxNorm Dang Ramirez RN [facility], [place] - [facility]. 4 15:20:46 Medications Name Sig Start Date Stop [...] 11/15 completed prescrib ed by Diana at [facility] Not Available Not Available Not Available omeprazol [...] mass index (BMI) Body weight Body temperature Oxygen saturation Oxygen saturation in Arterial blood by Pulse oximetry Respiratory rate Heart rate Systolic blood pressure Diastolic blood pressure Provider Name and Address Organization Details Last Updated DateTime 4 167.64 cm 26.3 kg/m2 72167.5 6 g 98.1 [degF] 100 % 100 % 16 /min 80 /min 130 mm[Hg] 72 mm[Hg] ALAN EGAN RN [facility], [facility] 4 15:04:41 Date Recorded Body height Body mass index (BMI) Body weight Respiratory rate Oxygen saturation Oxygen saturation in Arterial blood by Pulse oximetry Heart rate Body temperature Systolic blood pressure Diastolic blood pressure Provider Name and Address Organization Details Last Updated DateTime 4 167.64 cm 26.3 kg/m2 77940.5 6 g 18 /min 96 % 96 % 70 /min 97.8 [degF] 123 mm[Hg] 73 mm[Hg] Dang Ramirez RN [facility] 4 15:19:59 Date Recorded Body height Oxygen saturation Oxygen saturation in Arterial blood by Pulse oximetry Heart rate Body temperature Respiratory rate Systolic blood pressure Diastolic blood pressure Provider Name and Address Organization Details Last Updated DateTime 4 167.64 cm 97 % 97 % 79 /min 96.3 [degF] 17 /min 122 mm[Hg] 77 mm[Hg] BERNIE RAY MA [facility], [facility] 4 14:57:16 Date Recorded Body height Body mass index (BMI) Body weight Body temperature Heart rate Systolic blood pressure Diastolic blood pressure Provider Name and Address Organization Details Last Updated DateTime 4 167.64 cm 25.6 kg/m2 44040.7 5 g 98.1 [degF] 60 /min 128 mm[Hg] 76 mm[Hg] Tram Washington RN [facility] 4 08:45:11 Social History Question Answer Notes LastModified by Organizat ion Details LastModified Time Tobacco Smoking Status Never Smoker Dang Ramirez RN [facility], [facility] 10/01/2023 15:21:56 What Was The Date [...] this Age Resolved Age Notes Notes:*Problem: Mother breaide t cancer Father heart disease sister alcohol abuse, depression Son testicular cancer Medical History No medical history recorded. Immunizations Vaccine Type Date Status Provider Name and Address Organization Details Recorded Time Td (adult), 5 Lf tetanus toxoid, preservative free, adsorbed 10/01/[address], [place], [address], [facility] 10/02/2023 09:02:23 Tdap 08/20/2016 completed Not Available [facility] 06:27:41 zoster live 06/24/2018 completed Not Available [facility] 04/05/2023 06:27:41 zoster live 04/15/2018 completed Not Available [facility] 04/05/2023 06:27:41 Td(adult) unspecified formulation 05/31/2006 completed Not Available [facility] 04/05/2023 06:27:41 Influenza, high-dose, quadrivalent, PF 04/03/2022 completed Not Available [facility] 04/05/2023 06:27:41 SARS-COV-2 (COVID-19) vaccine, UNSPECIFIED 07/25/2020 completed Not Available [facility] 04/05/2023 06:27:41 SARS-COV-2 (COVID-19) vaccine, UNSPECIFIED 08/16/2020 completed Not Available [facility] 04/05/2023 06:27:41 SARS-COV-2 (COVID-19) vaccine, UNSPECIFIED 10/09/2021 completed Not Available [facility] 04/05/2023 06:27:41 SARS-COV-2 (COVID-19) vaccine, UNSPECIFIED 03/13/2021 completed Not Available [facility] 04/05/2023 06:27:42 Pneumococcal conjugate PCV20, polysaccharide [id number] conjugate, adjuvant, PF 08/21/2022 completed Not Available [facility] 04/05/2023 06:27:42 COVID-19, mRNA, LNP-S, bivalent, PF, 30 mcg/0.3 mL dose 04/03/2022 completed Not Available [facility] 04/05/20 06:27:42 influenza, unspecified formulation 05/02/2021 completed Not Available [facility] 04/05/2023 06:27:42 SARS-COV-2 (COVID-19) vaccine, UNSPECIFIED 03/15/2023 completed ALAN EGAN RN null, [facility] 04/29/2023 07:55:11 influenza, unspecified formulation 03/15/2023 completed ALAN EGAN RN null, [facility] 04/29/2023 07:55:24 Influenza, high-dose, quadrivalent, PF 03/15/2023 completed Not Available [facility] 06/07/2023 05:31:31 COVID-19, mRNA, LNP-S, PF, nitin-sucrose, 30 mcg/0.3 mL 03/15/2023 completed Not Available [facility] 06/07/2023 05:31:31 Past Encounters Encounter ID Performer Location Encounter Start Date Encounter Closed Date Diagnosis/Indication Diagnosis SNOMED-CT Code [id number] VALERIA TRAN MD [facility] [address] [place] [address] 04/29/2023 08:27:38 04/29/2023 09:31:46 Adult health examination 090585476 Active or passive immunization 465863513 Pain in ri ght lower limb 599996478 Anemia in chronic kidney disease 357412698 Chronic ki dney disease stage 4 804818233 Hand wart 851231636 Actinic keratosis 251905 524 [id number] VALERIA TRAN MD [facility] [address] [place] [address] 05/23/2023 16:35:10 05/23/2023 16:53:30 Anemia in chronic kidney disease 938082566 Sharma's esophagus 4483 77566 [id number] VALERIA TRAN MD [facility] [address] [place] [address] 08/15/2023 15:00:23 08/15/2023 15:52:30 Hyperparathyroidism due to renal insufficiency 75725779 Chronic ki dney disease stage 4 917010926 Food poisoning 59412857 [id number] Erika Mejia PA-C [address] [address] 10/01/2023 15:07:20 10/01/2023 16:10:16 Fracture of middle phalanx of finger 444091304 [id number] JANN GÓMEZ PA-C [address] [address] 10/02/2023 14:43:45 10/02/2023 16:37:47 Fracture of middle phalanx of finger 952408359 [id number] ARMANDO ACUNA [address] [place] [address] 10/25/2023 07:51:34 10/25/2023 08:43:53 Chronic kidney disease stage 4 984763637 Anemia in chronic kidney disease 030807105 Secondary hyperparathyroidism 31739940 Essential hypertension 68740016 Chronic al coholism in remission 012464527 Health Concerns Section Related Observation LastModified by Organization Detai ls LastModified Time None Recorded Concern Status LastModified by Organization Details LastModified Time None Recorded Advance Directives Directive None Recorded Payers Encounter Date Sequence Insurance Name Policy Number Policy Banerjee Covered Member ID Banerjee Member ID Guarantor Name 05/23/2023 1 [place] DVANT[place] - PPO) Mathew Colten Gingue [id number] Mathew Colten Gingue 08/15/2023 1 [place] - [place]PO) [id number] Mathew E Gingue [id number] Mathew E Gingue 10/01/2023 1 [place] - [place]) Mathew E Gingue [id number] Mathew E Gingue 10/02/2023 1 [place] - [place]) Mathew E Gingue [id number] Mathew E Gingue 10/25/2023 1 [place] - [place]) Mathew E Gingue [id number] Mathew Mendez Notes Date Note Type Note Provider Name and Address Organization Details Recorded Time 3 text/html HPI Notes: He has felt a little more tired since he stopped the iron. Feels more tired in the afternoon, this got better when he was taking the iron. Wonders if it is the iron or something else. He is moving his bowels normally, not constipated. He does occaisionally get multiple BMs in a row intermittently, but this started after his stomach operation, not a/w iron. MD [address], [place], [address], [facility]. 05/23/2023 16:54:54 4 text/html HPI Notes: Was in [place] 1-2 weeks ago, had sudden onset of abdominal pain, crampy, that was severe from epigastrum to the genitals. Started 7:30pm Didn't feel like pancreatitis. Wanted to have BM, felt like he couldn't, but then started having BMs. BMs started solid, then became loose. Went 20 times, each time his pain felt better. He was fine by the morning. He could eat and felt fine. He had eaten out that evening at restaurant, had raw tuna. Was with group, nobody else got sick. He occaisionally has some less severe pain since, feels better after no change in bp meds, lisinopril and amlodipine, metoprolol. still on jardiance. no change in urination. running out of calcitriol MD [address], [place], [address], [facility], [facility]. 08/15/2023 21:02:57 4 text/html HPI Notes: Pt is a 68 [...] tingling or limited ROM. Requires updated tetanus. Erika Mejia PA-C [address], [place], [address], [facility]. 10/02/2023 09:20:35 4 text/html HPI Notes: Mathew is a 68-year-old [...] has been taking his antibiotics as prescribed. JANN GÓMEZ PA-C [address], [place], [address], [facility], [facility]. 10/02/2023 18:54:45 4 text/html HPI Notes: Pt, 68-M, here [...] per Nephrology (Dr. Huynh) note review from [facility] 09/29/2023. Last Creatinine 3.21 09/29/2023 at [facility]. Standing order at [facility] for BMP per [facility] Nephrology. They are considering kidney biopsy per [...] is likely per Nephrology note review from [facility] 09/29/2023. Last Creatinine 3.21 09/29/2023 at [facility]. Standing order at [facility] for BMP per [facility] Nephrology. They are considering kidney biopsy per [...] 05/23/2023 note review. 11/10/2023 for Upper UE, [place] and r/u visit 11/19/2023. [address], [place], [address], [facility]. 10/25/2023 09:03:32
--- OUTSIDE RECORDS SUMMARY | 2023-12-10 04:56 | XMS_ITS | Encounter Summary ---
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 Harvester Operator Name Role Phone Luis Lauren MD Primary Care Provider [phone] Reason for Visit * Reason Onset Date Comments Hernia 06/25/2022 Encounter Details Date Type Department Care Team (Late st Contact Info) Description 06/25/2022 Telephone [facility] General Surgery - [address] [phone] Ollie Lee MD [address] [facility], [address] [place] [address] Hernia Social History Tobacco Use Types Packs/Day Years [...] Telephone Encounter - Leni Blanchard RN - 06/25/2022 1126 EST Schedule follow up office visit for 08/02 to discuss incisional hernia. Patient is not having any nausea/vomiting/constipation. He notes some discomfort from the hernia. Abdominal binder sent in the mail. * Telephone Encounter - Deanne Ozuna - 06/25/2022 1105 EST Patient reports that the incisional hernia has become larger. When he had the Hiatal hernia last October, he told him to call when it became larger. documented in this encounter Plan of Treatment Not on file documented as of this encounter Visit Diagnoses Not on filedocumented in this encounter Care Teams Timber Harvester Operator Relationship Specialty Start Date End Date Luis Lauren MD [address] [place] [address] PCP - General Family Medicine - Primary Care 11/23/21 11/11/22 documented as of this encounter
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
--- OUTSIDE RECORDS SUMMARY | 2023-12-10 04:56 | XMS_ITS | Encounter Summary ---
Author Organization [facility] Address [address] [place] [address] Care Team Providers Care Acid Blower Name Role Phone Luis Lauren MD Primary Care Provider [phone] Reason for Visit * Reason Comments Post-OP Follow Up [facility] Encounter Details Date Type Department Care Team (Late st Contact Info) Description 11/23/2021 10:45 EDT Post-op Visit [facility] General Surgery - [address] [id number] Ollie Lee MD [address] [place] [address], [address] [place] [address] Paraesophageal hernia (Primary Dx) Social History Tobacco Use [...] Sign Reading Time Taken Comments Blood Pressure 126/95 11/23/2021 1052 EDT Pulse 84 11/23/2021 1052 EDT Temperature - - Respiratory Rate - - Oxygen Saturation - - Inhaled Oxygen Concentration - - Weight 70.9 kg (156 lb 6.4 oz) 11/23/2021 1052 E DT Height 167.6 cm (5' 5.98) 11/23/2021 1052 EDT Body Mass Index 25.26 11/23/2021 1052 EDT documented in this encounter Functional Status [...] as of this encounter Progress Notes * Mukesh Etienne MA - 11/23/2021 1045 EDT [facility] General Surgery Services Patient Name: Mahtew Mendez Date: 11/23/2021 GERD-HRQL SCALE Patient symptoms are noted as [...] symptoms Do you have gassy or bloatingfeelings? 0 = No symptoms If you take medication, does it affect your daily life? 0 = No symptoms How satisfied are you with your present condition? Neutral Total Score: 0 * Ollie Lee MD - 11/23/2021 1045 EDT Date of Service: 11/23/2021 I saw Mathew Mendez in the office today in follow up for a laparoscopic paraesophageal hernia repair. Sustained a fall. He is experiencing no chest or abdominal pain. He is eating well, and has no dysphagia to chicken. He has some gas bloat and no GERD. He can belch, and has no excess flatus. ETOHic , had relapse. No quit again. Physical Exam: Lung CTA, Cor RRR, Abdomen: soft benign, scars are well healed. Assessment and Plan: Three months status post laparoscopic paraesophageal hernia repair with toupetfundoplication. Mr. Mendez is doing well; fully recovered. Resume regular activity. UGI 1 year fromdate of surgery. Follow up same day. Ollie Lee MD CC: Primary Care Provider: Luis Lauren MD documented in this encounter Plan of Treatment Not on file documented as of this encounter Visit Diagnoses Diagnosis Paraesophageal hernia- Primary Diaphragmatic hernia without mention of obstruction or gangrene documented in this encounter Care Teams Acid Blower Relationship Specialty Start Date End Date Luis Lauren MD [address] [place] [address] PCP - General Family Medicine - Primary Care 11/23/21 11/11/22 documented as of this encounter
--- OUTSIDE RECORDS SUMMARY | 2023-12-10 04:56 | XMS_ITS | Encounter Summary ---
Author Organization [facility] Address [address] [place] [address] Care Team Providers Care Retail Operations Specialist Name Role Phone Luis Lauren MD Primary Care Provider [phone] Reason for Visit * Reason Comments Follow-up Incisional hernia Encounter Details Date Type Department Care Team (Late st Contact Info) Description 08/02/2022 16:40 EST Office Visit [facility] General Surgery - [address] [id number] Ollie Lee MD [address] [place] [address], [address] [place] [address] Incisional hernia, without obstruction or gangrene (Primary Dx) Social History Tobacco Use Types [...] Sign Reading Time Taken Comments Blood Pressure 136/97 08/02/2022 1627 EST Pulse 74 08/02/2022 1627 EST Temperature - - Respiratory Rate - - Oxygen Saturation - - Inhaled Oxygen Concentration - - Weight 78 kg (172 lb) 08/02/2022 1627 EST Height 167.6 cm (5' 5.98) 08/02/2022 1627 EST Body Mass Index 27.77 08/02/2022 1627 EST documented in this encounter Functional Status Functional [...] as of this encounter Progress Notes * Ollie Lee MD - 08/02/2022 1640 EST Division of General Surgery Date of Service: 08/02/2022 PROBLEM: 1. Incisional hernia, without obstruction or gangrene HISTORY OF PRESENT ILLNESS: This is a 67 y.o. male who is known to me from a previous paraesophageal hernia repair that was done on a semiurgent basis last year after a failed gastropexy. He is doing relatively well from that standpoint. He eats all foods without dysphagia. He has no reflux. He does have significant gas bloat. His weight has been stable. He is supposed to see me in October for 1 year routine follow-up with an upper GI study the same day to evaluate for any evidence of hiatal hernia recurrence. He decided to see me today early for his ventral hernias. He had these at the time of surgery. We reviewed the CT scan which showed multiple defects to the right of midline in the upper abdomen. He has had a colectomy and then a colostomy reversal. I have a feeling the hernias are from those surgeries. He says they have gotten slightly larger. He says that there are multiple. They are slightly tenderfor him. He sometimes wears a binder. He said no other changes in bowel habits or urine. No retching. Past Medical History: Diagnosis Date ??? 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 Acute gastric volvulus 06/2021 s/p emergent surgery 07/2021 ??? Anemia chronic secondary to CKD ??? Cancer (HCC-CMS) (HCC) skin cancer left ear, removed 2019 ??? Chronic alcoholic pancreatitis (HCC-CMS) (HCC) no issues, no hospitalizations. ??? CKD (chronic kidney disease) Stage IV, followed by nephrology @ [facility], no restrictions per pt ??? Diverticulitis Around 2004 emergent partial resection with colostomy, colostomy reveral a year later ??? Eczema right ankle, has a cream from dermatology ??? GERD (gastroesophageal reflux disease) omeprazole very effective, can lye flat ??? Gout allopurinol effective for years ??? History of alcohol abuse absent since 01/2021. quit 01/2021. goes to AA per relapse 05/2021 he states 2-3 shot a day. per 6 shot a day.. last drink 10/18/21 ??? History of Sharma's esophagus followed by GI ??? History of epidural anesthesia spinal with knee surg ??? History of general anesthesia ??? HTN (hypertension) lisinopril w/gd effect ??? Hx of skin cancer, basal cell 06/2019 left ear ??? Hyperlipidemia ??? Lumbar spondylosis back, sees chiropractor about every 4 months ??? Paraesophageal hernia ??? Sleep apnea does not use cpap machine ??? Wears hearing aid in both ears Past Surgical History: Procedure Laterality Date ??? ABDOMINAL EXPLORATION SURGERY 07/2021 exploratory laparotomy and partial gastropexy. It was incarcerated. Dr. Lee note 08-25-21 I do not believe that the hernia was reduced. ??? COLECTOMY 2004 with colostomy ??? OTHER SURGICAL HISTORY 2006 Colostomy reversal ??? TOTAL KNEE ARTHROPLASTY Right around 2017 Family History Problem Relation Age of Onset ??? Cancer Mother breast ??? High Cholesterol Father ??? Heart Disease Father ??? Alcohol Abuse Sister ??? Depression Sister ??? Alcohol Abuse Sister ??? High Cholesterol Brother ??? Alcohol Abuse Maternal Grandmother ??? High Cholesterol Paternal Grandmother ??? Stroke Paternal Grandmother ??? High Cholesterol Paternal Grandfather ??? Alcohol Abuse Paternal Grandfather ??? Cancer Son testicular Social History Socioeconomic History ??? Marital status: Tobacco Use ??? Smoking status: Never ??? Smokeless tobacco: Never Substance and Sexual Activity ??? Alcohol use: Not Currently Comment: quit 01/2021. goes to AA per relapse 05/2021 he states 2-3 shot a day. per 6 shot a day.. last drink 10/18/21 ??? Drug use: Not Currently Current Outpatient Medications Medication ??? acetaminophen (TYLENOL) 325 mg tablet ??? allopurinoL (ZYLOPRIM) 100 mg tablet ??? amLODIPine (NORVASC) 10 mg tablet ??? CALCITRIOL ORAL ??? cyanocobalamin, vitamin B-12, 5,000 mcg tablet, IR and ER, biphasic ??? ergocalciferol, vitamin D2, (VITAMIN D2 ORAL) ??? HYDROmorphone (DILAUDID) 2 mg tablet ??? HYDROmorphone (DILAUDID) 2 mg tablet ??? lisinopriL (PRINIVIL) 5 mg tablet ??? metoprolol TARtrate (LOPRESSOR) 25 mg tablet ??? MULTIVITAMIN ORAL ??? omeprazole (PRILOSEC) 40 mg capsule ??? ondansetron (ZOFRAN-ODT) 4 mg disintegrating tablet No current facility-administered medications for this visit. Allergies Allergen Reactions ??? Morphine Hives itchy ??? Tramadol Nausea And Vomiting REVIEW OF SYSTEMS: A ten point review of systems was performed and all were negative except as listed below. Patient Active Problem List Diagnosis ??? Paraesophageal hernia ??? Paraesophageal hiatal hernia ??? Incisional hernia, without obstruction or gangrene OBJECTIVE: Vitals: 08/02/22 1627 BP: (!) 136/97 Pulse: 74 Weight: 78 kg (172 lb) Height: 167.6 cm (65.98) Body mass index is 27.77 kg/m??. He is afebrile. General: No acute distress. HEENT: Normal. Neck: Supple. Skin: Normal. Lungs: Clear, bilaterally. Heart: Regular rate and rhythm. Abdomen: Soft, nondistended, nontender, no masses, no organomegaly. Multiple hernias on the abdominal wall. All to the right of midline. There are at least 4 obvious ones. They are reducible. Difficult to feel the fascial defects. Vascular: Normal. Musculoskeletal: Normal. Neurologic: Normal. We reviewed the CT scan from early last year which showed multiple defects in the abdominal wall tothe right of midline. There are at least 5 that we counted. ASSESSMENT & PLAN: A 67 y.o. male with multiple defects from an incisional hernia on the abdominal wall. These likely just contain fat. At least that is what it looks like based on the CT scan from last year. Right now they are still relatively small and asymptomatic. He wanted to know my opinion about whatto do. I think he has a luxury of waiting some time. They are not very large. Sometimes wearing a binder can help when doing activities to alleviate pain. He will hold off on surgery right now. He has his appointment with me in 3 months. He will keep that. We will readdress these hernias at that time. --Ollie Lee MD Some of this note was transcribed with [employer] dictating software. While it was proofread, it may still contain unnoticed grammatical or word errors due to incorrect transcribing. CC: Primary Care Provider: Luis Lauren MD . documented in this encounter Plan of Treatment Not on file documented as of this encounter Visit Diagnoses Diagnosis Incisional hernia, without obstruction or gangrene- Primary Incisional hernia without mention of obstruction or gangrene documented in this encounter Historical Medications * This list may reflect changes made after this encounter. Medication Sig Dispensed Refills Start Date End Date MULTIVITAMIN ORAL Take by mouth. CALCITRIOL ORAL Take by mouth. ergocalciferol, vitamin D2, (VITAMIN D2 ORAL) Take by mouth. added in this encounter Care Teams Retail Operations Specialist Relationship Specialty Start Date End Date Luis Lauren MD [address] [place] [address] PCP - General Family Medicine - Primary Care 11/23/21 11/11/22 documented as of this encounter
--- OUTSIDE RECORDS SUMMARY | 2023-12-10 04:57 | XMS_ITS | Encounter Summary ---
Author Organization [facility] Address [address] [place] [address] Care Team Providers Care Business Editor Name Role Phone Dio Jovani Michel Primary Care Provider [phone]- [phone] Reason for Visit * Reason Onset Date Comments COVID-19 09/26/2021 COVID-19 10/01/2021 scheduling Encounter Details Date Type Department Care Team (Late st Contact Info) Description 09/26/2021 Telephone [facility] - [employer] [address] [place] [address] Ollie Lee MD [address] [facility], [address] [place] [address] COVID-19; COVID-19 (scheduling) Social History Tobacco Use Types Packs/Day Years Used Date Smoking Tobacco: Never Smokeless Tobacco: Never Interpersonal Safety Answer Date Record ed Physically [...] difficulty seeing, even when wearing glasses? No 07/31/2021 Do you have serious difficul ty walking or climbing stairs? (5 years old or older) No 07/31/2021 Do you have difficulty dress ing or bathing? (5 years old or older) No 07/31/2021 Because of a physical, menta l, or emotional condition, do you have difficulty doing errands alone such as visiting a doctor's office or shopping? (15 years old or older) No 07/31/2021 Cognitive Status Response Date of Assessm ent Because of a physical, menta l, or emotional condition, do you have serious difficulty concentrating, remembering, or making decisions? (5 years old or older) No 07/31/2021 documented as of this encounter Miscellaneous Notes * Telephone Encounter - Alicja Hope - 10/01/2021 1431 EDT Patient is going to [facility] to get COVID-19 testing prior to procedure on 10/25. Barrel Line Operator explained to patient they need to be tested on 10/22 in order to get results back in time. Barrel Line Operator faxed order. * Telephone Encounter - Karon Phan - 10/01/2021 1056 EDT Called patient to schedule COVID-19 testing. Left message requesting a call back at # [phone].Patient will need to be tested on 10/22, 3 days prior to procedure on 10/25. This is our 2nd attempt at calling the patient. * Telephone Encounter - Alicja Hope - 09/30/2021 1215 EDT MyChart message to patient regarding scheduling. * Telephone Encounter - Philip Martinez - 09/26/2021 1835 EDT Called patient to schedule COVID-19 testing. Requested a call back @[phone]. This is our 1st attempt at contacting the patient. documented in this encounter Plan of Treatment Not on file documented as of this encounter Visit Diagnoses Not on filedocumented in this encounter Care Teams Business Editor Relationship Specialty Start Date End Date Jovani Wharton DO [address] [place] [address] PCP - General 10/11/16 10/17/21 documented as of this encounter
--- OUTSIDE RECORDS SUMMARY | 2023-12-10 04:57 | XMS_ITS | Encounter Summary ---
Author Organization [facility] Address [address] [place] [address] Care Team Providers Care Type Bar And Segment Assembler Name Role Phone Jorge Chauhan MD Primary Care Provider Reason for Visit * Auth/Cert Specialty Diagnoses / Procedures [facility]erred By [facility] Referred To Contact Diagnoses Paraesophageal hernia Procedures MA LAP, REPAIR PARAESOPHAGEAL HERNIA, INCL FUNDOPLASTY W/ MESH Laparoscopic paraesophageal hernia repair with mesh Referral ID Status Reason Start Date Expiration Date Visits Re quested Visits Authorized [id number] 10/05/2021 05/26/2022 1 1 Encounter Details Date Type Department Care Team (Late st Contact Info) Description 10/25/2021 7:29 EDT Anesthesia Event [facility] OR [address] [place], [place] [phone] Micah Santoro MD [address] [facility], [address] [place] [phone] Jennifer Alejo MD Anesthesia Record Procedure Summary Procedure Name Responsible Anesthesiologist Anesthesia Start Time Anesthesia Stop Time Laparoscopic paraesophageal hernia repair with mesh (Abdomen) Micah Santoro MD 10/25/21 0729 10/25/21 1151 Events Date Time Event Comment 10/25/2021 0729 An Start The patient was re-evaluated immediately before moderate or deep sedation use, before anesthesia induction, or before the anesthesia procedure. 0729 An Start Data 0738 An Induction The patient was reevaluated immediately before moderate or deep sedation use and before anesthesia induction. 0741 An Intubation 0745 IV Placed 0748 Anesthesia Ready 1135 An Extubation 1143 an stop data 1151 Handoff to RN I completed my handoff to the receiving nurse during which we: 1. Identified the patient 2. Identified the responsible provider 3. Reviewed the pertinent medical history 4. Discussed the surgical course 5. Reviewed intra-op anesthesia management and issues during anesthesia 6. Set expectations for post-procedure period 7. Allowed opportunity for questions and acknowledgement of understanding. 1151 An Stop Meds Name Total fentanyl citrate (PF) injection 421.92 m cg midazolam (versed) 1 mg/mL 2 mL vial 4 m g ondansetron (PF) (ZOFRAN) injection 4 mg lidocaine 2% (PF) injection glass vial 8 0 mg phenylephrine pre-filled syringe 700 mcg propOFol (DIPRIVAN) injection 1,831,022 mcg rocuronium 10 mg/mL vial 150 mg sugammadex 100 mg/mL 2 mL vial 150 mg ceFAZolin (ANCEF) syringe 2 g 2 g phenylephrine pre-made bag 20 mg/250 mL 4,120 mcg sodium chloride 0.9 % (NS) infusion 500 mL lactated ringers (LR) infusion 500 mL * Agents Name O2 N2O Air * Blood No blood administrations on file. Lines, Drains, and Airways Type Details Placement Removal Wound 10/25/21; 0844; Inci roger; Anterior; Abdomen; Trocar sites x6 for paraesophageal hernia repair; N; Full thickness 10/25/21 0844 by Karen Reese, LOYD Peripheral IV 10/25/21; 0714; 18; 1.25; B Conner Introcan; Anterior, Right; Forearm; Inserted by RN; 1; None; 3.15% Chlorhexidine with IPA; 10/26/21; 1233; Discharged 10/25/21 0714 by Mary Banks RN 10/26/21 1233 by Mame Nichole, LOYD Non-Surgical Airway 10/25/21; 0808 (carlin barrientos via procedure documentation); 10/25/21; 1135 10/25/21 0808 by Jennifer Alejo MD 10/25/21 1135 by Jennifer Alejo MD Peripheral IV 10/25/21; 0815; 18; Left; Wrist; In OR by MD; 1; 10/26/21; 1233; Discharged 10/25/21 0815 by Jennifer Alejo MD 10/26/21 1233 by Mame Nichole, RN Urethral Catheter 10/25/21; 0845; Inse rted by RN; Intraoperative monitoring; Double-lumen, Non-latex, Straight-tip; 16 fr; 10 ml; Yes; 10/25/21; 1105 10/25/21 0845 by Karen Reese RN 10/25/21 1105 by Karen Reese, LOYD documented in this encounter Social History Tobacco Use Types Packs/Day Years [...] No 07/31/2021 documented as of this encounter OR Notes * Anesthesia Postprocedure Evaluation - Jennifer Alejo MD - 10/25/2021 1151 EDT Patient: Mathew Mendez Vital signs were reviewed with the recovery nurse. [facility] [place] [facility] Vitals Value Taken Time BP 10/25/21 1151 Temp 10/25/21 1151 Resp 12 10/25/21 1151 Pulse From Oximetry 71 BPM 10/25/21 1151 SpO2 94 % 10/25/21 1151 Vitals shown include unvalidated device data. Last Pain Score - Numeric Pain Level (Scale 1-10): 0 Type of Anesthesia - general Anesthesia Post Evaluation Post-procedure vitals reviewed and are stable. Level of consciousness: awake Temperature status: normothermia and patient returned to pre-procedure baseline Respiratory status: airway patent, stable and face mask Cardiovascular status: stable Hydration status: adequate Nausea/Vomiting: none Pain management: adequate Post-Op Assessment: patient tolerated procedure well with no complications Patient participation: able to participate Disposition: outpatient/home Anesthesia Complications: No apparent anesthesia complications * Anesthesia Procedure Notes - Jennifer Alejo MD - 10/25/2021 0807 EDT Associated Order(s): Airway Airway Date/Time: 10/25/2021 7:41 Urgency: elective General Information and Staff Patient location during procedure: OR Anesthesiologist: Micah Santoro MD Resident/PARCEL POST CARRIER: Jennifer Alejo MD Performed: resident/PARCEL POST CARRIER/AA Indications and Patient Condition Indications for airway management: anesthesia Sedation level: GA Preoxygenated: yes Patient position: sniffing Ventilation assessment: 1 - Easy Final Airway Details Final airway type: endotracheal airway Successful airway: ETT Cuffed: yes Successful intubation technique: direct laryngoscopy Facilitating devices/methods: intubating stylet Endotracheal tube insertion site: oral Blade: Marcus Blade size: #2 ETT size (mm): 7.0 Cormack-Lehane Classification: grade I - full view of glottis Placement verified by: chest auscultation and capnometry Measured from: teeth ETT to teeth (cm): 22 Number of attempts at approach: 1 * Anesthesia Preprocedure Evaluation - Jennifer Alejo MD - 10/24/2021 1643 EDT Anesthesia Preprocedure Evaluation Mathew Mendez is a 66 y.o. man with PMHx of HTN, previous alcohol misuse with previous alcoholic pancreatitis, CKD IV, GERD, HLD, and paraesophageal hernia who originally presented to [facility] with symptoms of his hernia and was treated with ex lap and gastropexy. Presenting now for laparoscopic paraesophageal hernia repair with mesh, possible open. 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 Chart and Nursing Notes reviewed, including NPO status and Medication History. Additional ROS/History Findings: Allergies Allergen Reactions ??? Morphine Hives Review of Systems Constitutional: Negative for chills and fever. HENT: Negative for congestion. Respiratory: Negative for wheezing. Cardiovascular: Negative for chest pain. Gastrointestinal: Negative for vomiting. Musculoskeletal: Negative for neck pain. Endo/Heme/Allergies: Does not bruise/bleed easily. Past Medical History: Diagnosis Date ??? Activity, [...] disease) Stage IV, followed by nephrology @ [facility], no restrictions per pt ??? Diverticulitis Around 2004 emergent partial resection with colostomy, colostomy reveral a year later ??? Eczema right ankle, has a cream from dermatology ??? GERD (gastroesophageal reflux disease) omeprazole very effective, can lye flat ??? Gout allopurinol effective for years ??? History of alcohol abuse absent since 01/2021 ??? History of Sharma's esophagus followed by [...] ??? Wears hearing aid in both ears Relevant Problems GASTROINTESTINAL (+) Paraesophageal hernia Physical Exam Airway Mallampati: I TM distance: >3 FB Neck ROM: full Cardiovascular Rhythm: regular Rate: normal Dental - normal exam Pulmonary Breath sounds clear to auscultation Abdominal Anesthesia Plan ASA 3 Anesthesia Type - general Anesthesia plan and risks discussed. Informed consent obtained from patient. Specific risks discussed were bleeding, headache, dental injury, infection, nausea and vomiting. PAT Note Notes from 09/24/21 through 10/24/21 No notes of this type exist for this encounter. documented in this encounter Plan of Treatment Not on file documented as of this encounter Procedures Procedure Name Priority Date/Time Associated Diagnosis Comments ANESTHESIA INTUBATION Routine 10/25/2021 7:41 EDT documented in this encounter Results * MA AN ELECTIVE ENDOTRACHEAL AIRWAY (10/25/2021 7:41 EDT) Narrative Jennifer Alejo MD - 10/25/2021 7:41 EDT Jennifer Alejo MD ? 10/25/2021 ??8:08 Airway Date/Time: 10/25/2021 7:41 Urgency: elective General Information and Staff Patient location during procedure: OR Anesthesiologist: Micah Santoro MD Resident/PARCEL POST CARRIER: Jennifer Alejo MD Performed: resident/PARCEL POST CARRIER/AA Indications and Patient Condition Indications for airway management: anesthesia Sedation level: GA Preoxygenated: yes Patient position: sniffing Ventilation assessment: 1 - Easy Final Airway Details Final airway type: endotracheal airway Successful airway: ETT Cuffed: yes Successful intubation technique: direct laryngoscopy Facilitating devices/methods: intubating stylet Endotracheal tube insertion site: oral Blade: Marcus Blade size: #2 ETT size (mm): 7.0 Cormack-Lehane Classification: grade I - full view of glottis Placement verified by: chest auscultation and capnometry Measured from: teeth ETT to teeth (cm): 22 Number of attempts at approach: 1 Micah Santoro MD ANESTHESIA ORDERABLE S documented in this encounter Visit Diagnoses Not on filedocumented in this encounter Administered Medications Inactive Administered Medications - up to 3 most recent administrations Medication Order MAR Action Action Date Dose Rate Site ceFAZolin (ANCEF) syringe 2 g 2 g, intravenous, Administer over 5 Minutes, PRE-OP ONCE, 1 dose, On Sat10/25/21 at 0645, Routine, Preprocedure Given 10/25/2021 8:00 EDT 2 g fentaNYL citrate (PF) injection intravenous, PRN, Starting on Sat10/25/21 at 0738, Until Sat10/25/21 at 1151, Routine, Anesthesia Intraprocedure Rate Change 10/25/2021 9:54 EDT 1 mcg/kg/hr 1.438 mL/hr Rate Change 10/25/2021 9:23 EDT 1.5 mcg/kg/hr 2.157 mL/hr Rate Change 10/25/2021 8:04 EDT 2 mcg/kg/hr 2.876 mL/hr lactated ringers (LR) infusion intravenous, FA IP EQF CONTINUOUS PRN FOR ONE STEP MEDS, Starting on Sat10/25/21 at 0748, Until Sat10/25/21 at 1151, Routine, Anesthesia Intraprocedure New Bag 10/25/2021 7:48 EDT 25 mL/hr lidocaine (PF) 20 mg/mL (2 %) injection intravenous, PRN, Starting on Sat10/25/21 at 0739, Until Sat10/25/21 at 1151, Routine, Anesthesia Intraprocedure Given 10/25/2021 7:39 EDT 80 mg midazolam (PF) (VERSED) injection intravenous, PRN, Starting on Sat10/25/21 at 0738, Until Sat10/25/21 at 1151, Routine, Anesthesia Intraprocedure Given 10/25/2021 7:41 EDT 2 mg Given 10/25/2021 7:38 EDT 2 mg ondansetron (PF) (ZOFRAN) injection intravenous, PRN, Starting on Sat10/25/21 at 1113, Until Sat10/25/21 at 1151, Routine, Anesthesia Intraprocedure Given 10/25/2021 11:13 EDT 4 mg phenylephrine HCl in 0.9% NaCl (NEO_SYNEPHRINE) 20 mg/250 mL (80 mcg/mL) infusion solution intravenous, FA IP EQF CONTINUOUS PRN FOR ONE STEP MEDS, Starting on Sat10/25/21 at 0950, Until Sat10/25/21 at 1151, Routine, Anesthesia Intraprocedure Rate Change 10/25/2021 11:27 EDT 20 mcg/min 15 mL/hr New Bag 10/25/2021 9:50 EDT 40 mcg/min 30 mL/hr phenylephrine HCl in 0.9% NaCl injection intravenous, PRN, Starting on Sat10/25/21 at 0742, Until Sat10/25/21 at 1151, Routine, Anesthesia Intraprocedure Given 10/25/2021 9:47 EDT 100 mcg Given 10/25/2021 9:44 EDT 100 mcg Given 10/25/2021 9:30 EDT 200 mcg propOFol (DIPRIVAN) injection intravenous, PRN, Starting on Sat10/25/21 at 0738, Until Sat10/25/21 at 1151, Routine, Anesthesia Intraprocedure Rate Change 10/25/2021 10:40 EDT 110 mcg/kg/min 47.454 mL/hr Rate Change 10/25/2021 10:12 EDT 100 mcg/kg/min 43.14 mL/h r Rate Change 10/25/2021 8:26 EDT 110 mcg/kg/min 47.454 mL/h r rocuronium (ZEMURON) injection intravenous, PRN, Starting on Sat10/25/21 at 0741, Until Sat10/25/21 at 1151, Routine, Anesthesia Intraprocedure Given 10/25/2021 10:27 EDT 20 mg Given 10/25/2021 9:25 EDT 30 mg Given 10/25/2021 8:47 EDT 20 mg sodium chloride 0.9 % (NS) infusion at 25 mL/hr, intravenous, CONTINUOUS, Starting on Sat10/25/21 at 0645, Until Sat10/25/21 at 1441, Routine, Preprocedure New Bag 10/25/2021 7:29 EDT 50 mL/hr sugammadex (BRIDION) injection intravenous, PRN, Starting on Sat10/25/21 at 1130, Until Sat10/25/21 at 1151, Routine, Anesthesia Intraprocedure Given 10/25/2021 11:30 EDT 150 mg documented in this encounter Care Teams Type Bar And Segment Assembler Relationship Specialty Start Date End Date Jorge Chauhan MD [address] [place] [id number] PCP - General Family Medicine - Primary Care 10/18/21 11/22/21 documented as of this encounter
--- OUTSIDE RECORDS SUMMARY | 2023-12-10 04:57 | XMS_ITS | Encounter Summary ---
Author Organization [facility] Address [address] [place] [address] Care Team Providers Care [employer] Name Role Phone Jorge Chauhan MD Primary Care Provider Reason for Visit * Auth/Cert Specialty Diagnoses / [facility] To Contact Diagnoses Paraesophageal hernia Procedures [place] LAP, REPAIR PARAESOPHAGEAL HERNIA, INCL FUNDOPLASTY W/ MESH Laparoscopic paraesophageal hernia repair with mesh Referral ID Status Reason Start Date Expiration Date Visits Re quested Visits Authorized [id number] 10/05/2021 05/26/2022 1 1 Encounter Details Date Type Department Care Team (Late st Contact Info) Description 10/25/2021 7:25 EDT - 10/25/2021 11:[address] [facility] OR [address] [place] [address] [phone] Ollie Lee MD [address] [place] [address], [facility], [address] [place] [address] Laparoscopic paraesophageal hernia repair with mesh [79791 (CPT??)] Surgery Details Date/Time Status Location OR Service Patient Class Case Class Case Type Trauma Case? 10/25/21 0725 Posted [facility] OR MOR 14 General Extended Stay H - Elective Panel 1 Procedure LRB Anes Op Region Wound Class Comments Laparoscopic paraesophageal hernia repair with mesh N/A General Abdomen Class I/ Clean Surgeon Surgeon Role Service Panel Jesus Herndon MD Resident - Assisting General 1 Ollie Lee MD Primary General 1 documented in this encounter Social History Tobacco [...] 9:41 EDT Sexual Orientation Not on file COVID-19 Exposure Response Date Recorded In the last month, have you been in contact with someone who was confirmed or suspected to have Coronavirus / COVID-19? No / Unsure 07/31/2021 15:32 EST documented as of this encounter Last Filed Vital Signs Vital Sign Reading Time Taken Comments Blood Pressure 138/97 10/25/2021 0632 EDT Pulse - - Temperature 35.8 ??C (96.4 ??F) 10/25/2021 0632 EDT Respiratory Rate 16 10/25/2021 0632 EDT Oxygen Saturation 96% 10/25/2021 0632 EDT Inhaled Oxygen Concentration - - Weight 71.9 kg (158 lb 8.2 oz) 10/25/2021 0632 E DT Height 167.6 cm (5' 6) 10/25/2021 0632 EDT Body Mass Index 25.58 10/25/2021 0632 EDT documented in this encounter Functional Status [...] No 10/25/2021 documented as of this encounter Discharge Instructions * Discharge Instr - AVS First Page* Sanjuana Gaona NP - 10/26/2021 10:35 EDT Images from the original note were not included. Activity: 15lb lifting restriction for 3 months Follow-up See Dr. Lee in 1 month Call to make an appointment Wound care: Okay to shower. Do not submerse in a bath or tub for 1 month. Your incisions are closed with a waterproof glue over dissolvable stitches Misc: No straws or carbonated beverages for 3 months Remain upright after eating for 30 minutes Eat smaller more frequent meals, avoid large volumes of intake Sip on liquids throughout the day to avoid dehydration It is important to take your anti-nausea medication Zofran if nauseated as to avoid dry heaving or vomiting. Bowels: If you become constipated, please purchase an over the counter stool softener such as Colace 100mg taken twice daily If you develop bloating, increased flatulence or abdominal distention, please purchase an over the counter Simethicone or Gas-x to be taken three times daily with meals Diet: Please follow the diet advancement handout that was given to you at your preoperative appointment. documented in this encounter Medications at Time of Discharge Medication Sig Dispensed Refills Start Date End Date acetaminophen (TYLENOL) 325 mg tablet Take 2 Tablets by mouth every 4 hours as needed for Pain. 10/26/2021 allopurinoL (ZYLOPRIM) 100 mg tablet Take 100 mg by mouth daily. amLODIPine (NORVASC) 10 mg tablet Take 1 Tablet by mouth daily. cyanocobalamin, vitamin B-12, 5,000 mcg tablet, IR and ER, biphasic Take 500 mcg by mouth daily. HYDROmorphone (DILAUDID) 2 mg tablet Take 1 [...] 2 times daily. 30 Tablet 4 08/11/2021 omeprazole (PRILOSEC) 40 mg capsule Take 1 Capsule by mouth daily. ondansetron (ZOFRAN-ODT) 4 mg disintegrating tablet Take 1 Tablet by mouth every 8 hours as needed for Nausea. 15 Tablet 2 10/26/2021 11/23/2021 documented as of this encounter Ordered Prescriptions Prescription Sig Dispensed Refills Start Date End Da te HYDROmorphone (DILAUDID) 2 mg tablet Take 1 Tablet by mouth every 8 hours as needed for Pain. Daily Max: 6 mg 10 Tablet 10/27/2021 HYDROmorphone (DILAUDID) 2 mg tablet Take 1 Tablet by mouth every 6 hours as needed for Pain. Daily Max: 8 mg 10 Tablet 10/26/2021 acetaminophen (TYLENOL) 325 mg tablet Take 2 Tablets by mouth every 4 hours as needed for Pain. 10/26/2021 ondansetron (ZOFRAN-ODT) 4 mg disintegrating tablet Take 1 Tablet by mouth every 8 hours as needed for Nausea. 15 Tablet 2 10/26/2021 11/23/2021 HYDROmorphone (DILAUDID) 2 mg tablet Take 1 Tablet by mouth every 6 hours as needed for Pain. Daily Max: 8 mg 10 Tablet 10/26/2021 10/26/2021 ondansetron (ZOFRAN-ODT) 4 mg disintegrating tablet Take 1 Tablet by mouth every 8 hours as needed for Nausea. 15 Tablet 2 10/26/2021 10/26/2021 documented in this encounter Discharge Disposition Disposition Code Departure Means Destination Home or Self Retirement documented in this encounter Progress Notes * Morelia Tierney RT - 10/26/2021 1005 EDT Respiratory Consult/Progress Note Indications for Respiratory therapy: initial consult Data Vitals: Heart Rate: 73 BPM, Resp: 20, SpO2: 94 % FIO2/O2 Device: O2 Flow Rate (L/min): 2 l/min, , O2 Device: None, RT Orders: Protocol Scoring: Bronchodilator/Inhalation Therapy Frequency Bronchodilator - Clinical Indications: No clinical indications Breath Sounds: Clear Response: No change / no treatment Pulse: <100 Resp Rate: 18-25 SOB: None Total Score: 1 Frequency Based On Total Score: 0-4 = PRN 5-7 = QID 8-10 = Q4H 11-12 = Q2H Airway Clearance Therapy Frequency Airway Clearance - Clinical Indications: No clinical indications Breath Sounds: Clear / diminished Sputum: Small (tsp) / None Consistency: None Cough Effort: Strong/ non-productive Color: None Total Score: 0 Frequency Based On Total Score: 0-3 = PRN 4-6 = QID and PRN 7-9 = Q4H and PRN 10-11 = Q2H and PRN Hyperinflation Therapy Frequency Hyperinflation - Clinical Indications: Atelectasis on CXR (from hernia expansion, no rpt CXR since removal) Breath Sounds: Clear Surgery: Yes X-Ray / Atelectasis: Yes O2 Requirements: O2 at baseline Mobility Status: Mobile / at baseline Total: 4 Comment: Independent Frequency Based On Total Score: 0-3 = PRN 4-6 = QID and PRN 7-9 = Q4H and PRN 10-12 = Q2H and PRN Action/Events Respiratory events; Patient consulted in PPR, no respiratory hx or mdis/nebs. States that doctors are recommending cpapovernight study outpatient but currently wears no NIV. Minimal smoking hx in college but less than 0.25PPD for a few years if that. Patient on RA and wears no O2 at home. Pulling 1500ml on IS and able to do vpep and demonstrates non-productive cough. RT SUZANNE 10/26/21 * Shelly Slaughter MD - 10/25/2021 1631 EDT POST-OP CHECK PROCEDURE: Laparoscopic hiatal hernia repair with mesh, Toupet Fundoplication EGD. SUBJECTIVE: Feels okay after surgery. Notes he does have upper abdominal pain spreading to his shoulders. Pain is controlled at the moment. Has been standing at bedside with some dizziness. Denies nausea, vomiting, chest pain, shortness of breath, fevers, and chills. OBJECTIVE: VS: Temp: [35.8 ??C (96.4 ??F)] Heart Rate: -- BP: (138)/(97) Resp: [16] SpO2: [96 %] Gen: NAD, alert and oriented to conversation Pulm: non-labored breathing on room air, clear to auscultation in bilateral anterior lung lal CV: RRR Abd: soft, appropriately tender, nondistended Ext: WWPx4, no edema Incision/Dressing: laparoscopic incisions c/d/i with dermabond ASSESSMENT: 66 y.o. male POD#0 s/p Laparoscopic hiatal hernia repair with mesh, Toupet Fundoplication EGD. Recovering appropriately in the PACU. Pain well controlled. PLAN: - Continue clears tonight and advance to fulls tomorrow AM - F/u 1800 CBC Shelly Slaughter MD 10/25/2021 11:51 General Surgery Housestaff #[id number] documented in this encounter H&P Notes * Jesus Herndon MD - 10/25/2021 0614 EDT Day of Surgery H+P Chief Complaint: Paraesophageal hernia HPI: Per Dr. Lee clinic note: This is a 66 y.o. male follows up with me today after being discharged from the hospital for his paraesophageal hernia. Just to summarize, he presented to the hospital in [place] with a paraesophageal hernia that was symptomatic for him. The [facility] surgeon that was covering there performed an exploratory laparotomy and partial gastropexy. I do not believe that the hernia was reduced. He was subsequently transferred to our hospital. Contrast was able to flow through the stomach but slowly. He slowly progressed to tolerating some food orally. He has been doing relatively well at home. He is tolerating soft foods. He is maintaining his weight. He is doing nutritional supplements. He has no significant pain. Today he relates no chest pain or issues breathing, he recently did an 11 mile bike ride without much issue. Tolerating solids well without issues. Last ate 2100 last night ice cream. He does note hehas issues with tramadol with n/v so we will avoid that. NO further episodes of volvulus or obstruction per him. Has been in good health. Patient denies CP, SOB, Abdominal pain, Nausea, Vomiting, Fever, Chills, Sweats, Constipation, Diarrhea, Melena, Change in bowel habits, dysuria, urinary frequency, numbness, or tingling Review of Symptoms: A ten point review of systems was completed and was negative except as noted above in the HPI PMH PSH Past Medical History: Diagnosis Date ??? Activity, [...] disease) Stage IV, followed by nephrology @ [facility], no restrictions per pt ??? Diverticulitis Around [...] ??? TOTAL KNEE ARTHROPLASTY Right around 2017 Social History Family history Social History Tobacco Use ??? Smoking status: Never Smoker ??? Smokeless tobacco: Never Used Substance Use Topics ??? Alcohol use: Not Currently Comment: quit 01/2021 Family History Problem Relation Age of Onset ??? Cancer Mother breast ??? High Cholesterol Father ??? Heart Disease Father ??? Alcohol Abuse Sister ??? Depression Sister ??? Alcohol Abuse Sister ??? High Cholesterol Brother ??? Alcohol Abuse Maternal Grandmother ??? High Cholesterol Paternal Grandmother ??? Stroke Paternal Grandmother ??? High Cholesterol Paternal Grandfather ??? Alcohol Abuse Paternal Grandfather ??? Cancer Son testicular Medications Medications Prior to Admission Medication Sig Dispense Refill Last Dose ??? allopurinoL (ZYLOPRIM) 100 mg tablet Take 100 mg by mouth daily. ??? amLODIPine (NORVASC) 10 mg tablet Take 10 mg by mouth daily. ??? cyanocobalamin, vitamin B-12, 5,000 mcg tablet, IR and ER, biphasic Take 500 mcg by mouth daily. ??? lisinopriL (PRINIVIL) 5 mg tablet Take 5 mg by mouth daily. ??? metoprolol TARtrate (LOPRESSOR) 25 mg tablet Take 0.5 Tablets by mouth 2 times daily. 30 Tablet4 ??? omeprazole (PRILOSEC) 40 mg capsule Take 40 mg by mouth daily. Allergies Allergies Allergen Reactions ??? Morphine Hives Objective: There were no vitals taken for this visit. Physical Exam: General Appearance: alert, cooperative, no distress Lung: clear to auscultation bilaterally Heart: regular rate and rhythm Abdomen: Soft, ntnd, old midline scar and RLQ stoma scar well healed. No palpable masses or open wounds. Extremities: all extremities warm and well perfused Skin: Skin color, temperature, turgor normal. No rashes or lesions Data Review: Labs: CBC: Lab Results Component Value Date WBC 5.86 08/11/2021 RBC 3.04 (L) 08/11/2021 HGB 9.3 (L) 08/11/2021 HCT 27.6 (L) 08/11/2021 PLT 188 08/11/2021 CMP: Lab Results Component Value Date NA 136 08/11/2021 K 4.6 08/11/2021 CL 101 08/11/2021 CO2 24 08/11/2021 BUN 55 (H) 08/11/2021 CREATININE 2.30 (H) 08/11/2021 MG 1.8 08/11/2021 PHOS 4.6 (H) 08/11/2021 CALCIUM 9.2 08/11/2021 AST 19 08/11/2021 ALT 16 08/11/2021 ALKPHOS 68 08/11/2021 08/01/21 UGI IMPRESSION Complex large paraesophageal hernia status post repair without evidence of obstruction. There is slow transit of contrast from the herniated portion of the gastric fundus into the supradiaphragmatic proximal duodenum with ultimate passage of contrast below the diaphragmatic hiatus. Assessment: Mathew Mendez is a(n) 66 y.o. old male with a past medical history significant for PEH now here forsurgery for Lap PEH repair with Dr. Lee. Plan: 1. Appropriate for OR as above 2. 2g Ancef ordered 3. Consented Jesus Herndon MD 10/25/2021 6:14 Surgery Trucker Pager #[phone] documented in this encounter Nursing Notes * Mary Banks RN - 10/25/2021 0642 EDT Preop Covid DOS screening questionnaire Please document by exception (only check those that apply). Have you had any of the following symptoms recently?no Yes Chronic ? Cough Shortness of breath or difficulty breathing Fever Chills Fatigue Muscle or body aches Severe Headache New loss of taste or smell Sore throat Congestion or runny nose Rash Nausea, vomiting, or diarrhea (rare in adults. More common in children) Have you had any exposure to a COVID + person since your covid test (in the last 5 days)? no Have you tested positive in the last 90 days for COVID by PCR and or home test?no Were you covid tested?yes When: 10/22/21 Results: Vaccinated: YES See admission vital signs documentation for admission temperature. documented in this encounter OR Notes * OR Surgeon - Ollie Lee MD - 10/25/2021 0547 EDT OPERATIVE REPORT SERVICE DATE: 10/25/2021 PREOPERATIVE DIAGNOSIS: Paraesophageal hernia. POSTOPERATIVE DIAGNOSIS: Paraesophageal hernia. PROCEDURES: 1. Laparoscopic paraesophageal hernia repair with mesh. 2. Laparoscopic Toupet fundoplication. SURGEON: Ollie Lee MD, FACS CREDIT COLLECTOR: Jesus Herndon MD ANESTHESIA: General endotracheal and local. ESTIMATED BLOOD LOSS: Minimal. FLUIDS: 1 L crystalloid. URINE OUTPUT: 200 mL DRAINS: None. COMPLICATIONS: None. FINDINGS: Defect approximately 5 cm in diameter. Several adhesions from previous surgery. There were some flimsy adhesions around the hiatus. Primary closure was performed with OviTex mesh onlay. Partial posterior fundoplication in a Toupet fashion was performed. The integrity and position of the esophagus and GE junction was checked with an endoscopy. NARRATIVE: The patient was taken to the operating room and placed supine on the operating table, identified as Mathew Mendez. I was present for the entire case. After induction of general anesthesia, the abdomen was prepped and draped in usual sterile fashion. An incision was then made in the left mid abdomen approximately 5 mm long. Veress needle was used to access the peritoneal cavity, which wasinsufflated to 14 mmHg using carbon dioxide. A 5 mm port was placed in this location followed by a 5 mm laparoscope which was used to examine the abdomen. There were adhesions against the abdominal wall that were seen. A right upper quadrant 5 mm port was placed under direct vision and we used 2 hands to take adhesions off the abdominal wall with blunt and sharp dissection. Some bleeding vessels were clipped, others were cauterized. Care was taken to avoid injuring bowel or any other viscera with electrocautery. The left lateral segment of liver was then elevated with a liver retractor. We added an additional 4 ports in the upper abdomen for standard laparoscopic foregut surgery. More adhesions were taken down. We could see the stomach in the mediastinum. About 2/3 of the stomach was up in the mediastinum. We scored some of the attachments against the anterior hiatal defect and izzy, and we were able to then release the stomach and bring it back down into the abdomen. The gastrosplenic ligament was then incised with the Harmonic scalpel up to the left izzy of diaphragm. The gastrohepatic ligament was incised up to the right izzy of diaphragm. We then scored the peritoneum just inside the left izzy and working from left to right, the hernia sac was then dissected out of the medias tinum. Most of the hernia sac was also removed from the abdomen. A window was then made posterior to the esophagus, which was encircled with a Dexter drain for retraction. Mediastinal dissection of the esophagus was then undertaken in its lower portion to allow adequate length of the esophagus in the abdomen. The anterior vagus nerve was sacrificed with the hernia sac but the posterior vagus nerve was preserved. An endoscope was then passed. There was adequate length of the esophagus in the abdomen. The distal esophagus was filled with methylene blue and no leakage was seen. The stomach and esophagus were suctioned and the endoscope was removed. The diaphragmatic crura were then reapproximated posterior to the esophagus with multiple interrupted 0 Surgidac sutures using the Endo Stitch device. Two of the sutures were placed in a horizontal mattress fashion and reinforced with Cresencio pledgets. An onlay patch approximately 5 x 5 cm was cut in a heart-shaped fashion. This was made of an OviTex mesh. It was then tacked at its periphery usingthe universal stapler, 65 degree. The fundus of the stomach was then brought posterior to the esophagus. The Dexter drain was released. A partial posterior fundoplication was performed, suturing the fundus of the stomach to the anterolateral location of the esophagus using 2-0 Surgidac suture. Two sutures were placed on the right side and 3 sutures were placed on the left side, and the upper superior most suture incorporated theanterior left izzy, anchoring the wrap to that location. We also anchored the posterior aspect of the wrap to the posterior izzy using a 2-0 Surgidac suture. The wrap lay nicely without undue tension, twisting or angulation of the esophagus. The abdomen was inspected. There was some bleeding from one of the mesenteric vessels and this was clipped. The remainder of the blood was suctioned. Left upper quadrant was irrigated with saline. Effluent was clear. The liver retractor was removed, pneumoperitoneum was released, the ports were removed. Fascia at each 10 mm port site was closed with 0 Vicryl suture. Each wound was irrigated and infiltrated with local anesthesia, and the skin at each site was then closed with subcuticular stitch of 4-0 Monocryl. Dermabond was used to cover each site. Sponge, needle and instrument counts were correct at the end of the case. The patient was awoken fromanesthesia, extubated, and taken to recovery room in stable condition. Unless otherwise noted, there were no complications, no blood loss, no cultures obtained, no specimens removed, and no drains retained. lOlie Lee MD FACS / CD Confirmation: [id number] Dictation ID: [id number] cc: Ollie Lee MD [facility], [facility] - Surgery, [address] [place] [address] Jorge Chauhan MD, [place] [address] Jesus Herndon MD, [facility] - House Staff Mail, [address] [place] [address] documented in this encounter Miscellaneous Notes * Plan of Care - Mame Nichole RN - 10/26/2021 1058 EDT Weaned off oxygen this morning. Oxygen saturation 90-94% on room air. Using IS, encouraging deep breathes. Out of bed ambulated in el contact guard. Tolerating full liquid diet. Rating abdominal pain 4/10, administered pain meds, see MAR. -Flatus Able to make needs known. * Plan of Care - Norma Mott RN - 10/26/2021 0622 EDT D: Admitted for a hiatal hernia repair. No acute events overnight. Rates pain 5- 8/10. IV dilaudid and po dilaudid given with good results. 3 liters 02 overnight. Using urinal. A: Denies SOB and N/V. R: Appears to have slept during the night. * Brief Op Note - Jesus Herndon MD - 10/25/2021 1132 EDT BRIEF OP NOTE Surgeon: Dr. Lee Manager Programs: Dr. Herndon Pre-op diagnosis: Paraesophageal hernia Post-op diagnosis: same Procedure: Laparoscopic hiatal hernia repair with mesh, Toupet Fundoplication EGD. Anesth: GETA Findings: Negative leak test with EGD, reduced and sac excised. Crural repair reinforced Ovitex, small left sided pleural tear repaired with clips EBL: 150cc IVF: 1000cc UOP: 200cc Specimen: none Cultures: none Foreign Material Retained: Ovitex Mesh Complications: none Dispo: pacu, floor Plan: ?? Clears tonight, fulls tomorrow, then duc diet ?? chemoppx tonight ?? Hold nsaids for now Jesus Herndon MD 10/25/2021 11:32 documented in this encounter Plan of Treatment Not on file documented as of this encounter Procedures Procedure Name Priority Date/Time Associated Diagnosis Comments COMPLETE BLOOD COUNT Routine 10/26/2021 9:27 EDT COMPLETE BLOOD COUNT Routine 10/25/2021 18:32 EDT COMPLETE BLOOD COUNT AND DIFFERENTIAL STAT 10/25/2021 12:22 EDT REPAIR, HERNIA, HIATAL, LAPAROSCOPIC, USING MESH 10/25/2021 7:14 EDT Paraesophageal hernia documented in this encounter Results * (ABNORMAL) COMPLETE BLOOD COUNT (10/26/2021 9:27 EDT) WBC 8.88 4.00 - 10.40 K/cmm 10/26/2021 9:48 EDT [facility] RBC 3.20(L) 4.36 - 5.78 M/cmm 10/26/2021 9:48 EDT [facility] Hemoglobin 9.9(L) 13.8 - 17.3 gm/dL 10/26/2021 9:48 EDT [facility] HCT 29.8(L) 39.5 - 50.2 % 10/26/2021 9:48 EDT [facility] MCV 93 81 - 95 fl 10/26/2021 9:48 EDT [facility] MCH 30.9 27.6 - 33.0 pg 10/26/2021 9:48 EDT [facility] MCHC 33.2 32.8 - 36.4 gm/dL 10/26/2021 9:48 T [facility] RDW-CV 15.5(H) <14.2 % 10/26/2021 9:48 EDT [facility] RDW-SD 52.9(H) <46.0 fl 10/26/2021 9:48 EDT [facility] PLT 153 141 - 377 K/cmm 10/26/2021 9:48 T [facility] MPV 11.8 9.5 - 12.7 fl 10/26/2021 9:48 T [facility] Blood VENOUS BLOOD / Unknown Venipuncture / Unknown 10/26/2021 9:27 EDT 10/26/2021 9:42 EDT Jesus Herndon MD HEMATOLOGY & PF4 OR DERABLES [facility] [address] [place] [address] * (ABNORMAL) COMPLETE BLOOD COUNT (10/25/2021 18:32 EDT) WBC 10.43(H) 4.00 - 10.40 K/cmm 10/25/2021 18:48 EDT [facility] RBC 3.33(L) 4.36 - 5.78 M/cmm 10/25/2021 18:48 EDT [facility] Hemoglobin 10.2(L) 13.8 - 17.3 gm/dL 10/25/2021 18:48 T [facility] HCT 29.9(L) 39.5 - 50.2 % 10/25/2021 18:48 EDT [facility] MCV 90 81 - 95 fl 10/25/2021 18:48 EDT [facility] MCH 30.6 27.6 - 33.0 pg 10/25/2021 18:48 EDT [facility] MCHC 34.1 32.8 - 36.4 gm/dL 10/25/2021 18:48 EDT [facility] RDW-CV 15.1(H) <14.2 % 10/25/2021 18:48 EDT [facility] RDW-SD 49.8(H) <46.0 fl 10/25/2021 18:48 EDT [facility] PLT 159 141 - 377 K/cmm 10/25/2021 18:48 EDT [facility] MPV 11.3 9.5 - 12.7 fl 10/25/2021 18:48 EDT [facility] Blood VENOUS BLOOD / Unknown Venipuncture / Unknown 10/25/2021 18:32 EDT 10/25/2021 18:36 EDT Jesus Herndon MD HEMATOLOGY & PF4 OR DERABLES Performing Organization Address City/State/[facility] Co de Phone Number [facility] [address] [place] [address] * (ABNORMAL) COMPLETE BLOOD COUNT AND DIFFERENTIAL (10/25/2021 12:22 EDT) WBC 12.50(H) 4.00 - 10.40 K/cmm 10/25/2021 12:34 EDT [facility] RBC 3.19(L) 4.36 - 5.78 M/cmm 10/25/2021 12:34 EDT [facility] Hemoglobin 9.9(L) 13.8 - 17.3 gm/dL 10/25/2021 12:34 EDT [facility] HCT 29.4(L) 39.5 - 50.2 % 10/25/2021 12:34 [facility] MCV 92 81 - 95 fl 10/25/2021 12:34 [facility] MCH 31.0 27.6 - 33.0 pg 10/25/2021 12:34 [facility] MCHC 33.7 32.8 - 36.4 gm/dL 10/25/2021 12:34 [facility] RDW-CV 15.2(H) <14.2 % 10/25/2021 12:34 [facility] RDW-SD 51.7(H) <46.0 fl 10/25/2021 12:34 [facility] PLT 161 141 - 377 K/cmm 10/25/2021 12:34 [facility] MPV 11.1 9.5 - 12.7 fl 10/25/2021 12:34 [facility] % Neutrophils 87.5 % 10/25/2021 12:34 [facility] % Lymphocytes 3.7 % 10/25/2021 12:34 [facility] % Monocytes 6.6 % 10/25/2021 12:34 [facility] % Eosinophils 1.4 % 10/25/2021 12:34 [facility] % Basophils 0.3 % 10/25/2021 12:34 [facility] % Immature Grans 0.5 % 10/26/19 12:34 [facility] Absolute Neutrophils 10.95(H) 2.20 - 8.85 K/cmm 10/25/2021 12:34 [facility] Absolute Lymphocytes 0.46(L) 1.09 - 3.30 K/cmm 10/25/2021 12:34 [facility] Absolute Monocytes 0.82(H) 0.10 - 0.80 K/cmm 10/25/2021 12:34 [facility] Absolute Eosinophils 0.17 0.03 - 0.61 K/cmm 10/25/2021 12:34 [facility] ABS Basophils 0.04 0.01 - 0.11 K/cmm 10/25/2021 12:34 EDT [facility] Absolute Immature Grans 0.06 0.00 - 0.06 K/cmm 10/25/2021 12:34 EDT [facility] Type of Differential: Auto 10/25/2021 12:34 EDT [facility] Blood VENOUS BLOOD / Unknown Venipuncture / Unknown 10/25/2021 12:22 EDT 10/25/2021 12:24 EDT Jesus Herndon MD PACKAGES & DNA PROB E ORDERABLES [facility] [address] [place] [address] documented in this encounter Visit Diagnoses Diagnosis Paraesophageal hernia- Primary Diaphragmatic hernia without mention of obstruction or gangrene Paraesophageal hernia Diaphragmatic hernia without mention of obstruction or gangrene documented in this encounter Admitting Diagnoses Diagnosis Paraesophageal hernia Diaphragmatic hernia without mention of obstruction or gangrene Paraesophageal hiatal hernia Diaphragmatic hernia without mention of obstruction or gangrene documented in this encounter Administered Medications Inactive Administered Medications - up to 3 most recent administrations Medication Order MAR Action Action Date Dose Rate Site acetaminophen (TYLENOL) solution unit dose cup 995 mg 995 mg (rounded from 1,000 mg), oral, EVERY 6 HOURS, First dose on Sat10/25/21 at 2000, Until Discontinued, Routine Given 10/26/2021 1:17 EDT 995 mg Given 10/25/2021 19:30 EDT 995 mg acetaminophen (TYLENOL) tablet 1,000 mg 1,000 mg, oral, PRE-OP ONCE, 1 dose, On Sat10/25/21 at 0645, Routine, Preprocedure Given 10/25/2021 6:44 EDT 1,000 mg acetaminophen (TYLENOL) tablet 1,000 mg 1,000 mg, oral, PRN, 1 dose, Starting on Sat10/25/21 at 1117, Until Sat10/25/21 at 1357, Pain, Routine, Recovery (only) Given 10/25/2021 13:57 EDT 1,000 mg bupivacaine (PF) (MARCAINE) 0.5% injection PRN, Starting on Sat10/25/21 at 1117, Until Sat10/25/21 at 1147, Routine, Intraprocedure Given 10/25/2021 11:17 EDT 30 mL Abdominal Tissue chlorhexidine gluconate 2 % cloth 1 Each 1 Each, topical, PRE-OP MULTIPLE, Starting on Sat10/25/21 at 0616, Until Sat10/25/21 at 1157, Other, Routine, Preprocedure Given 10/25/2021 6:43 EDT 1 Each dextrose 5 % and 0.45 % NaCl with KCl 20 mEq/L infusion at 50 mL/hr, intravenous, CONTINUOUS, Starting on Sat10/25/21 at 1215, Until Ladan 10/26/21 at 0656, Routine Rate Documented 10/25/2021 19:31 EDT 50 mL/hr Rate Documented 10/25/2021 15:30 EDT 50 mL/hr New Bag 10/25/2021 13:30 EDT 50 mL/hr enoxaparin (LOVENOX) injection 40 mg 40 mg, subcutaneous, AT BEDTIME, First dose on Sat10/25/21 at 2100, Until Discontinued, Routine Given 10/25/2021 2 0:56 EDT 40 mg fentaNYL citrate (PF) injection 25-50 mcg 25-50 mcg, intravenous, EVERY 5 MIN PRN, Starting on Sat10/25/21 at 1117, Until Sat10/25/21 at 1441, Pain, Routine, Recovery (only) Given 10/25/2021 12 :16 EDT 50 mcg Given 10/25/2021 12:04 EDT 50 mcg gabapentin (NEURONTIN) capsule 600 mg 600 mg, oral, PRE-OP ONCE, 1 dose, On Sat10/25/21 at 0645, Routine, Preprocedure Given 10/25/2021 6:45 EDT 600 mg heparin injection 5,000 Units 5,000 Units, subcutaneous, PRE-OP ONCE, 1 dose, On Sat10/25/21 at 0645, Routine, Preprocedure Given 10/25/2021 7:16 EDT 5,000 Units HYDROmorphone (DILAUDID) tablet 2-4 mg 2-4 mg, oral, EVERY 30 MINUTES PRN, 2 doses, Starting on Sat10/25/21 at 1117, Until Sat10/25/21 at 1355, Pain, Routine, Recovery (only) Given 10/25/2021 13:55 EDT 2 mg Given 10/25/2021 12:04 EDT 2 mg HYDROmorphone (DILAUDID) tablet 2-4 mg 2-4 mg, oral, EVERY 4 HOURS PRN, Starting on Sat10/25/21 at 1810, Until Ladan 10/26/21 at 1543, Pain, Routine, Recovery (only) Given 10/26/2021 12:31 EDT 2 mg Given 10/26/2021 9:05 EDT 2 mg Given 10/26/2021 1:16 EDT 2 mg HYDROmorphone (PF) (DILAUDID) 0.5 mg/0.5 mL syringe 0.25-0.5 mg 0.25-0.5 mg, intravenous, EVERY 4 HOURS PRN, Starting on Sat10/25/21 at 1441, Until Sat10/25/21 at 1809, Pain, Routine Given 10/25/2021 15:59 EDT 0.5 mg HYDROmorphone (PF) (DILAUDID) 0.5 mg/0.5 mL syringe 0.25-0.5 mg 0.25-0.5 mg, intravenous, EVERY 3 HOURS PRN, Starting on Sat10/25/21 at 1815, Until Ladan 10/26/21 at 0656, Pain, Routine Given 10/26/2021 6:16 EDT 0.5 mg Given 10/25/2021 22:27 EDT 0.5 mg Given 10/25/2021 18:23 EDT 0.5 mg ibuprofen (MOTRIN) tablet 600 mg 600 mg, oral, PRE-OP ONCE, 1 dose, On Sat10/25/21 at 0645, Routine, Preprocedure Given 10/25/2021 6:44 EDT 600 mg methylene blue (PROVAYBLUE) injection PRN, Starting on Sat10/25/21 at 1008, Until Sat10/25/21 at 1147, Routine, Intraprocedure Given 10/25/2021 10:08 EDT 3 mL metoprolol TARtrate (LOPRESSOR) tablet 12.5 mg 12.5 mg, oral, 2 TIMES DAILY, First dose on Sat10/25/21 at 2100, Until Discontinued, Routine Given 10/26/2021 9:03 EDT 12.5 mg Given 10/25/2021 20:56 EDT 12.5 mg ondansetron (PF) (ZOFRAN) injection 4 mg 4 mg, intravenous, EVERY 6 HOURS PRN, Starting on Sat10/25/21 at 1441, Until Ladan 10/26/21 at 1543, Nausea, Vomiting, Routine Given 10/26/2021 12:11 EDT 4 mg pantoprazole (PROTONIX) injection 40 mg 40 mg, intravenous, DAILY, First dose on Sat10/25/21 at 1500, Until Discontinued, Routine Given 10/26/2021 9:03 EDT 40 mg Given 10/25/2021 15:51 EDT 40 mg sodium chloride 0.9 % irrigation PRN, Starting on Sat10/25/21 at 0858, Until Sat10/25/21 at 1147, Routine, Intraprocedure Given 10/25/2021 8:58 EDT 1,000 m L sterile water (bottle) irrigation PRN, Starting on Sat10/25/21 at 0859, Until Sat10/25/21 at 1147, Intraprocedure Given 10/25/2021 8:59 EDT 500 mL Given 10/25/2021 8:39 EDT 500 mL documented in this encounter Discontinued Medications Medication Sig Discontinue Reason Start Date End Da te HYDROmorphone (DILAUDID) 2 mg tablet Take 1 Tablet by mouth every 6 hours as needed for Pain. Daily Max: 8 mg 10/26/2021 10/26/2021 ondansetron (ZOFRAN-ODT) 4 mg disintegrating tablet Take 1 Tablet by mouth every 8 hours as needed for Nausea. Reorder 10/26/2021 10/26/2021 documented as of this encounter Active and Recently Administered Medications Times are shown in EDT. Scheduled Medication Order 10/24/2021 10/25/2021 10/26/2021 acetaminophen (TYLENOL) solution unit dose cup 995 mg 995 mg (rounded from 1,000 mg), oral, EVERY 6 HOURS, First dose on Sat10/25/21 at 2000, Until Discontinued, Routine 1930 (Given - Provider: Norma Mott RN) 0117 (Given - Provider: Norma Mott RN)1056 (Hold - Provider: Mame Nichole RN - Reason: Other)1400 (Canceled Entry - Provider: Batch Job User Admin - Comment: Automatically canceled at discontinue of medication order) acetaminophen (TYLENOL) tablet 1,000 mg (COMPLETED) 1,000 mg, oral, PRE-OP ONCE, 1 dose, On Sat10/25/21 at 0645, Routine, Preprocedure 0644 (Given - Provider: Mary Banks RN) ceFAZolin (ANCEF) syringe 2 g (COMPLETED) 2 g, intravenous, Administer over 5 Minutes, PRE-OP ONCE, 1 dose, On Sat10/25/21 at 0645, Routine, Preprocedure 0800 (Given - Provider: Jennifer Alejo MD) enoxaparin (LOVENOX) injection 40 mg 40 mg, subcutaneous, AT BEDTIME, First dose on Sat10/25/21 at 2100, Until Discontinued, Routine 2055 (Given - Provider: Norma Mott RN) gabapentin (NEURONTIN) capsule 600 mg (COMPLETED) 600 mg, oral, PRE-OP ONCE, 1 dose, On Sat10/25/21 at 0645, Routine, Preprocedure 0645 (Given - Provider: Mary Banks RN) heparin injection 5,000 Units (COMPLETED) 5,000 Units, subcutaneous, PRE-OP ONCE, 1 dose, On Sat10/25/21 at 0645, Routine, Preprocedure 0716 (Given - Provider: Mary Banks RN) ibuprofen (MOTRIN) tablet 600 mg (COMPLETED) 600 mg, oral, PRE-OP ONCE, 1 dose, On Sat10/25/21 at 0645, Routine, Preprocedure 0644 (Given - Provider: Mary Banks RN) metoprolol TARtrate (LOPRESSOR) tablet 12.5 mg 12.5 mg, oral, 2 TIMES DAILY, First dose on Sat10/25/21 at 2100, Until Discontinued, Routine 2055 (Given - Provider: Norma Mott RN) 902 (Given - Provider: Mame Nichole, LOYD) pantoprazole (PROTONIX) injection 40 mg 40 mg, intravenous, DAILY, First dose on Sat10/25/21 at 1500, Until Discontinued, Routine 155 (Given - Provider: Kamal Bhattachan, RN) 0903 (Given - Provider: Mame Nichole RN) Continuous Medication Order 10/24/2021 10/25/2021 10/26/2021 dextrose 5 % and 0.45 % NaCl with KCl 20 mEq/L infusion (CANCELED) at 50 mL/hr, intravenous, CONTINUOUS, Starting on Sat10/25/21 at 1215, Until Ladan 10/26/21 at 0656, Routine 1330 (New Bag - Provider: Shannan Chang RN)1530 (Rate Documented - Provider: Becky Levy RN)1931 (Rate Documented - Provider: Norma Mott RN) sodium chloride 0.9 % (NS) infusion (CANCELED) at 25 mL/hr, intravenous, CONTINUOUS, Starting on Sat10/25/21 at 0645, Until Sat10/25/21 at 1441, Routine, Preprocedure 0729 (New Bag - Provider: Jennifer Alejo MD)1151 (Anesthesia Volume Adjustment - Provider: Jennifer Alejo MD) PRN Medication Order 10/24/2021 10/25/2021 10/26/2021 acetaminophen (TYLENOL) tablet 1,000 mg (COMPLETED)(Linked Group 1) 1,000 mg, oral, PRN, 1 dose, Starting on Sat10/25/21 at 1117, Until Sat10/25/21 at 1357, Pain, Routine, Recovery (only) 1357 (Given - Provider: Shannan Chang RN) bupivacaine (PF) (MARCAINE) 0.5% injection (CANCELED) PRN, Starting on Sat10/25/21 at 1117, Until Sat10/25/21 at 1147, Routine, Intraprocedure 1117 (Given - Provider: Jesus Herndon MD) chlorhexidine gluconate 2 % cloth 1 Each (CANCELED) 1 Each, topical, PRE-OP MULTIPLE, Starting on Sat10/25/21 at 0616, Until Sat10/25/21 at 1157, Other, Routine, Preprocedure 0643 (Given - Provider: Mary Banks RN) fentaNYL citrate (PF) injection 25-50 mcg (CANCELED) 25-50 mcg, intravenous, EVERY 5 MIN PRN, Starting on Sat10/25/21 at 1117, Until Sat10/25/21 at 1441, Pain, Routine, Recovery (only) 1204 (Given - Provider: Shannan Cahng RN)1216 (Given - Provider: Shannan Chang RN) HYDROmorphone (DILAUDID) tablet 2-4 mg (COMPLETED) 2-4 mg, oral, EVERY 30 MINUTES PRN, 2 doses, Starting on Sat10/25/21 at 1117, Until Sat10/25/21 at 1355, Pain, Routine, Recovery (only) 1204 (Given - Provider: Shannan Chang RN)1355 (Given - Provider: Shannan Chang RN) HYDROmorphone (DILAUDID) tablet 2-4 mg 2-4 mg, oral, EVERY 4 HOURS PRN, Starting on Sat10/25/21 at 1810, Until Sat10/26/21 at 1543, Pain, Routine, Recovery (only) 2058 (Given - Provider: Norma Mott RN) 0116 (Given - Provider: Norma Mott RN)0905 (Given - Provider: Mame Nichole RN)1231 (Given - Provider: Mame Nichole RN) HYDROmorphone (PF) (DILAUDID) 0.5 mg/0.5 mL syringe 0.25-0.5 mg (CANCELED) 0.25-0.5 mg, intravenous, EVERY 4 HOURS PRN, Starting on Sat10/25/21 at 1441, Until Sat10/25/21 at 1809, Pain, Routine 1559 (Given - Provider: Becky Levy RN) HYDROmorphone (PF) (DILAUDID) 0.5 mg/0.5 mL syringe 0.25-0.5 mg (CANCELED) 0.25-0.5 mg, intravenous, EVERY 3 HOURS PRN, Starting on Sat10/25/21 at 1815, Until Sat10/26/21 at 0656, Pain, Routine 1823 (Given - Provider: Becky Levy RN)2227 (Given - Provider: Norma Mott RN) 0616 (Given - Provider: Norma Mott RN) methylene blue (PROVAYBLUE) injection (CANCELED) PRN, Starting on Sat10/25/21 at 1008, Until Sat10/25/21 at 1147, Routine, Intraprocedure 1008 (Given - Provider: Jesus Herndon MD - Comment: 3ml in 500ml NaCl) ondansetron (PF) (ZOFRAN) injection 4 mg 4 mg, intravenous, EVERY 6 HOURS PRN, Starting on Sat10/25/21 at 1441, Until Ladan 10/26/21 at 1543, Nausea, Vomiting, Routine 1211 (Given - Provid er: Mame Nichole RN) sodium chloride 0.9 % irrigation (CANCELED) PRN, Starting on Sat10/25/21 at 0858, Until Sat10/25/21 at 1147, Routine, Intraprocedure 0858 (Given - Provider: Ollie Lee MD) sterile water (bottle) irrigation (CANCELED) PRN, Starting on Sat10/25/21 at 0859, Until Sat10/25/21 at 1147, Intraprocedure 0839 (Given - Provider: Ollie Lee MD - Comment: ENDOSCOPE)0859 (Given - Provider: Ollie Lee MD) Linked Groups Order Group 1: acetaminophen (TYLENOL) solution unit dose cup 995 mg (COMPLETED) 995 mg (rounded from 1,000 mg), oral, PRN, 1 dose, Starting on Sat10/25/21 at 1117, Until Sat10/25/21 at 1357, Pain, Routine, Recovery (only) Or acetaminophen (TYLENOL) tablet 1,000 mg (COMPLETED)Jump to med 1,000 mg, oral, PRN, 1 dose, Starting on Sat10/25/21 at 1117, Until Sat10/25/21 at 1357, Pain, Routine, Recovery (only) documented in this encounter Orders Medications Ordered That Kenneth ht Not Have Been Administered Count Last Ordered Date First Ordered Date acetaminophen (TYLENOL) solu tion unit dose cup 995 mg 1 10/25/2021 atropine 0.1 mg/mL syringe 0.5 mg 1 022 ceFAZolin (ANCEF) syringe 2 g 1 10/25/2021 diphenhydrAMINE (BENADRYL) i njection 12.5 mg 1 10/25/2021 lactated ringers (LR) infusion 1 10/25/2021 lidocaine (PF) 10 mg/mL (1 % ) injection 2 mg 1 10/25/2021 metoclopramide (REGLAN) injection 10 mg 1 0 10/25/2021 naloxone (NARCAN) injection 0.2 mg 1 2021 sodium chloride 0.9 % (NS) infusion 1 10/25 Nursing Count Last Ordered Date First Orde red Date INSERT IRVIN CATHETER 1 10/25/2021 Discharge Count Last Ordered Date First Orde red Date DISCHARGE PATIENT 1 10/26/2021 documented in this encounter Care Teams [employer] Relationship Specialty Start Date End Date Jorge Chauhan MD [address] [place] [id number] PCP - General Family Medicine - Primary Care 10/18/21 11/22/21 documented as of this encounter
--- OUTSIDE RECORDS SUMMARY | 2023-12-10 04:57 | XMS_ITS | Encounter Summary ---
Author Organization [facility] Address [address] [place] [address] Care Team Providers Care Sole Tacker Name Role Phone Jorge Chauhan MD Primary Care Provider Reason for Visit * Reason Onset Date Comments Follow-up Diagnostic PSG 10/24/2021 Encounter Details Date Type Department Care Team (Late st Contact Info) Description 10/24/2021 Telephone [facility] General Surgery - [address] [id number] Ollie Lee MD [address] [place] [address], [address] [place] [address] Follow-up Diagnostic PSG Social History Tobacco Use Types Packs/Day Years Used Date Smoking Tobacco: Never Smokeless Tobacco: Never Alcohol Use Standard Drinks/Week Comments Not Currently 0 (1 standard drink = 0.6 oz pur e alcohol) quit 01/2021 Interpersonal Safety Answer Date Record ed Physically [...] encounter Miscellaneous Notes * Telephone Encounter - Lico Traci - 10/24/2021 0814 EDT Left message to return my call concerning covid and check in time on documented in this encounter Plan of Treatment Not on file documented as of this encounter Visit Diagnoses Not on filedocumented in this encounter Care Teams Sole Tacker Relationship Specialty Start Date End Date Jorge Chauhan MD [address] [place] [id number] PCP - General Family Medicine - Primary Care 10/18/21 11/22/21 documented as of this encounter
--- OUTSIDE RECORDS SUMMARY | 2023-12-10 04:57 | XMS_ITS | Encounter Summary ---
Author Organization [facility] Address [address] [place] [address] Care Team Providers Care Ceramic Maker Demonstrator Name Role Phone Dio, Jovani Michel Primary Care Provider [phone] Reason for Visit * Reason Onset Date Comments Other 08/14/2021 Encounter Details Date Type Department Care Team (Late st Contact Info) Description 08/14/2021 Telephone [facility] General Surgery - [facility] [address] [place], [place] [id number] Ollie Lee MD [address] [facility], [address] [place] [address] Other Social History Tobacco Use [...] 15:32 EST documented as of this encounter Functional Status [...] No 07/31/2021 documented as of this encounter Ordered Prescriptions Prescription Sig Dispensed Refills Start Date End Da te traMADol (ULTRAM) 50 mg tablet Take 1 Tablet by mouth every 6 hours as needed for Pain. Daily Max: 200 mg 20 Tablet 08/19/2021 10/21/2021 documented in this encounter Miscellaneous Notes * Telephone Encounter - Ollie Lee MD - 08/19/2021 1122 EDT 08/19/21 Telephone call: Patient needs more pain meds. Pain mild. Still tolerating po intake. Given script for Tramadol refill. Has appointment in 5 days with me. --Ollie Lee MD CC: Jovani Wharton DO * Telephone Encounter - Balbir Bowman - 08/14/2021 0951 EDT Patient Calling to find out about a Follow up ,Please call to Discuss documented in this encounter Plan of Treatment Not on file documented as of this encounter Visit Diagnoses Not on filedocumented in this encounter Discontinued Medications Medication Sig Discontinue Reason Start Date End Da te traMADol (ULTRAM) 50 mg tablet Take 1 Tablet by mouth every 6 hours as needed for Pain. Daily Max: 200 mg Reorder 08/11/2021 08/19/2021 documented as of this encounter Care Teams Ceramic Maker Demonstrator Relationship Specialty Start Date End Date Jovani Wharton DO [address] [place] [address] PCP - General 10/11/16 10/17/21 documented as of this encounter
--- OUTSIDE RECORDS SUMMARY | 2023-12-10 04:57 | XMS_ITS | Encounter Summary ---
Author Organization [facility] Address [address] [place] [address] Care Team Providers Care National Recruiter Name Role Phone Dio, Jovani Michel Primary Care Provider [phone] Encounter Details Date Type Department Care Team (Late st Contact Info) Description 09/26/2021 Orders Only [facility] General Surgery - [address] [id number] Ollie Lee MD [address] [place] [address], [address] [place] [address] Encounter for preoperative screening laboratory testing for COVID-19 virus (Primary Dx) Social History Tobacco Use Types [...] No 07/31/2021 documented as of this encounter Progress Notes * Luís Morin MD - 09/26/2021 0920 EDT Images from the original note were not included. Ford Villa MD Resident Surgery Progress Notes ?? Signed Date of Service: 08/08/2021 ??9:16 []Hide copied text []Hover for details Surgery Progress Note ?? Admit Date: 07/31/2021 Hospital Day: LOS: 7 days Date of Service: 08/08/2021 ?? Chief Complaint/Procedure: PEH; Transferred from [facility] ?? 24 Hr Events: - NAEON ?? Subjective: Reports That he has been doing great, tolerating fulls with nutrition boost, denies nausea or emsis, very motivated, up and walking. ? Objective/Physical Exam: Vital Signs: BP 139/80 (BP Cuff Location: Left arm, BP Patient Position: Semi fowlers) Pulse 76 Temp 36.6 ??C (97.9 ??F) (Rectal) Resp 18 Ht 167.6 cm (66) Wt 69.7 kg (153 lb 9.6 oz) YoT279% BMI 24.79 kg/m?? Intake/Output: I&O By Type - 3 Shifts Including Current In: 93 [I.V.:30; IV Piggyback:63] Out: - (Inaccurate) ?? Exam: General: No acute distress, very pleasant Pulmonary: Non labored breathing on room air, CTAB Abdomen: Soft, nontender, nondistended; incisions c/d/i Extremities: WWP ?? Is PICC or CVL present?: Yes, RUE ?? Labs: CBC: Recent Labs 08/06/21 0609 08/07/21 0512 08/08/21 0604 WBC 6.86 5.83 6.05 HGB 8.4* 8.4* 8.7* HCT 25.2* 25.5* 27.1* MCV 96* 93 93 PLT 200 204 206 ?? BMP: Recent Labs 08/06/2144 08/07/21 0508/08/21 0604 NA 138 136 138 K 4.8 4.7 4.7 CL 104 106 106 CO2 21* 21* 19* BUN 55* 54* 56* CREATININE 2.17* 2.04* 2.17* MG -- 2.1 2.0 PHOS -- 4.1 4.4 CALCIUM 9.6 9.1 9.5 SERGLU 102* 115* 114* LFTs: Recent Labs 08/06/2174308/07/2151108/08/21 0604 ALT 15 14 16 AST 21 19 20 ALKPHOS 70 60 66 TBIL <0.5 <0.5 <0.5 CONJBILI -- 0.0 -- UNCONJBILI -- 0.0 -- TP 6.8 5.9* 6.2* LABALBU 4.1 3.5 3.7 ? Assessment: Mathew Mendez??is a 66-year-old male with history of paraesophageal hernia,??hypertension,??GERD,??CKD 4,??and diverticulitis (status post small bowel resection, colostomy,??and subsequent??colostomy reversal)??who presents as a transfer from [facility] after presenting with acute onset abdominal pain secondary to an incarcerated paraesophageal hernia. He was taken??to the OR on 07/24 for an exploratory laparotomy, lysis of adhesions, reduction of his gastric contents, and suture gastropexy. ?? Continue to work on diet advancement. Currently on full liquid diet with some toleration. Continue TPN. ?? Plan: Pain: Well controlled on current regimen. Tylenol, Dilaudid CV: Stable. Continue metoprolol. Resp: No active issues, encourage IS. GI: full liquid diet, pantoprazole BID. Ok for tums prn. : Urinating without issue F/E/N: On TPN. Advance liquids by 1oz/12 hours. Cycle TPN Endo: No active issues. Heme: CBC stable from yesterday. Trend labs daily. ID: Afebrile, no active issues. VTE Prophylaxis: Ambulation, SCD's, Heparin 5000 units SQ Tid Disposition: D/C home once gets insurance approval of home TPN ?? Ford Villa MD 08/08/2021 9:16 PGY-3 ? Cosigned by: Luís Morin MD at 08/08/2021 16:45 ??9:20 Attestation statement: I saw and examined the patient with the certified ophthalmic surgical assistant / blue team on 08/08/2021 16:45. I agree with the findings, assessment, and plan as outlined above. Luís Morin MD 09/29/2021 13:37 * Luís Morin MD - 09/26/2021 0920 EDT Images from the original note were not included. Ashlie Greene MD Resident Surgery Progress Notes ?? Signed Date of Service: 08/09/2021 ??7:43 []Hide copied text []Milan for details Surgery Progress Note ?? Admit Date: 07/31/2021 Hospital Day: LOS: 8 days Date of Service: 08/09/2021 ?? Chief Complaint/Procedure: PEH; Transferred from [facility] ?? 24 Hr Events: - NAEON ?? Subjective: Didn't sleep that well for no particular reason, per patient. States that his pain is manageable and that his reflux symptoms are minimal. Tied yogurt and several puddings yesterday with no issues. Tolerated his first Boost Plus as well with no issues. Denies fevers, chills, chest pain, SOB, nauseaor vomiting. ?? Objective/Physical Exam: Vital Signs: BP (!) 148/89 (BP Cuff Location: Left arm, BP Patient Position: Semi fowlers) Pulse 72 Temp 36.3 ??C (97.3 ??F) (Tympanic) Resp 18 Ht 167.6 cm (66) Wt 69.7 kg (153 lb 9.6 oz) SpO2 98% BMI 24.79 kg/m?? Intake/Output: I&O By Type - 3 Shifts Including Current In: 2039 [P.O.:490; I.V.:167; TPN:1217; IV Piggyback:166] Out: - (Inaccurate) ?? Exam: General: No acute distress, very pleasant Pulmonary: Non labored breathing on room air, CTAB Abdomen: Soft, nontender, nondistended; incisions c/d/i Extremities: WWP ?? Is PICC or CVL present?: Yes, RUE PICC ?? Labs: CBC: Recent Labs 08/07/21 0512 08/08/21 0604 08/09/21 0513 WBC 5.83 6.05 7.59 HGB 8.4* 8.7* 8.9* HCT 25.5* 27.1* 26.3* MCV 93 93 91 PLT 204 206 209 ?? BMP: Recent Labs 08/07/2151108/08/21 0604 08/09/21 0513 NA 136 138 138 K 4.7 4.7 4.4 CL 106 106 104 CO2 21* 19* 22 BUN 54* 56* 59* CREATININE 2.04* 2.17* 2.05* MG 2.1 2.0 2.0 PHOS 4.1 4.4 3.8 CALCIUM 9.1 9.5 9.7 SERGLU 115* 114* 109* LFTs: Recent Labs 08/07/2151108/08/21 0604 08/09/21 0513 ALT 14 16 16 AST 19 20 18 ALKPHOS 60 66 67 TBIL <0.5 <0.5 <0.5 CONJBILI 0.0 -- -- UNCONJBILI 0.0 -- -- TP 5.9* 6.2* 6.2* LABALBU 3.5 3.7 3.7 ? Assessment: Mathew Mendez??is a 66-year-old male with history of paraesophageal hernia,??hypertension,??GERD,??CKD 4,??and diverticulitis (status post small bowel resection, colostomy,??and subsequent??colostomy reversal)??who presents as a transfer from [facility] after presenting with acute onset abdominal pain secondary to an incarcerated paraesophageal hernia. He was taken??to the OR on 07/24 for an exploratory laparotomy, lysis of adhesions, reduction of his gastric contents, and suture gastropexy. Transferred to [facility] due to ongoing symptoms with imaging showing a non reduced PEH. UGI showed passage of contrast through the stomach into the small bowel and subsequent films showed progression of contrast into the bowel. Working on patient tolerance of full liquid diet in order to discharge to home safely with adequate nutritional supplementation (insurance does not cover TPN). Will plan to bring back in 6 weeks for definitive PEH. ?? Continue to work on diet advancement. Currently on full liquid diet with some toleration. Will DC TPN today. ?? Plan: Pain: Well controlled on current regimen. Tylenol, Dilaudid CV: Stable. Continue metoprolol. Resp: No active issues, encourage IS. GI: full liquid diet, pantoprazole BID. Ok for tums prn. : Urinating without issue F/E/N: On TPN. Full liquid diet. Let TPN and do no reorder for today. Endo: No active issues. Heme: CBC stable from yesterday. Trend labs daily. ID: Afebrile, no active issues. VTE Prophylaxis: Ambulation, SCD's, Heparin 5000 units SQ Tid Disposition: D/C home once taking in sufficient calories for safe discharge ?? Ashlie Greene MD 08/09/2021 7:50 General Surgery PGY-5 Pager [phone] ? Cosigned by: Luís Morin MD at 08/09/2021 15:55 ??7:54 Attestation statement: I saw and examined the patient with the certified ophthalmic surgical assistant / blue team 08/09/2021 15:55 . I agree with the findings, assessment, and plan as outlined above. * Luís Morin MD - 09/26/2021 0920 EDT Images from the original note were not included. Tomy Dewitt MD Resident Surgery Progress Notes ?? Signed Date of Service: 08/10/2021 ??7:18 []Hide copied text []Milan for details Surgery Progress Note ?? Admit Date: 07/31/2021 Hospital Day: LOS: 9 days Date of Service: 08/10/2021 ?? Chief Complaint/Procedure: PEH; Transferred from [facility] ?? 24 Hr Events: - No acute events overnight. TPN discontinued. ?? Subjective: [place] great in the last 24 hours. Completely drank 2 boosts shakes, yogurt, ice cream and orange juice for which he tolerated well. Denying abdominal pain or nausea this morning. Had some TUMS which relieved some reflux. ?? Objective/Physical Exam: Vital Signs: BP 136/88 (BP Cuff Location: Left arm, BP Patient Position: Sitting) Pulse 78 Temp36.1 ??C (97 ??F) (Tympanic) Resp 16 Ht 167.6 cm (66) Wt 69.1 kg (152 lb 6.4 oz) SpO2 98% BMI 24.60 kg/m?? Intake/Output: I&O By Type - 3 Shifts Including Current In: 1400 [P.O.:1400] Out: - (Inaccurate) ?? Exam: General: No acute distress, very pleasant Pulmonary: Non labored breathing on room air, CTAB Abdomen: Soft, nontender, nondistended; incisions c/d/i Extremities: WWP ?? Is PICC or CVL present?: Yes, RUE PICC ?? Labs: CBC: Recent Labs 08/08/21 0604 08/09/21 0513 08/10/21 0556 WBC 6.05 7.59 6.38 HGB 8.7* 8.9* 9.7* HCT 27.1* 26.3* 28.3* MCV 93 91 90 PLT 206 209 204 ?? BMP: Recent Labs 08/08/21 0604 08/09/21 0513 08/10/21 0556 NA 138 138 139 K 4.7 4.4 4.7 CL 106 104 101 CO2 19* 22 23 BUN 56* 59* 58* CREATININE 2.17* 2.05* 2.30* MG 2.0 2.0 1.9 PHOS 4.4 3.8 4.7* CALCIUM 9.5 9.7 9.8 SERGLU 114* 109* 97 LFTs: Recent Labs 08/08/21 0604 08/09/21 0513 08/10/21 0556 ALT 16 16 17 AST 20 18 20 ALKPHOS 66 67 75 TBIL <0.5 <0.5 <0.5 TP 6.2* 6.2* 6.7 LABALBU 3.7 3.7 4.2 ? Assessment: Mathew Mendez??is a 66-year-old male with history of paraesophageal hernia,??hypertension,??GERD,??CKD 4,??and diverticulitis (status post small bowel resection, colostomy,??and subsequent??colostomy reversal)??who presents as a transfer from [facility] after presenting with acute onset abdominal pain secondary to an incarcerated paraesophageal hernia. He was taken??to the OR on 07/24 for an exploratory laparotomy, lysis of adhesions, reduction of his gastric contents, and suture gastropexy. Transferred to [facility] due to ongoing symptoms with imaging showing a non reduced PEH. UGI showed passage of contrast through the stomach into the small bowel and subsequent films showed progression of contrast into the bowel. Working on patient tolerance of full liquid diet in order to discharge to home safely with adequate nutritional supplementation (insurance does not cover TPN). Will plan to bring back in 6 weeks for definitive PEH. ?? Continue to work on diet advancement. Currently on full liquid diet with some toleration. Will DC TPN today. ?? Plan: Pain: Well controlled on current regimen. Tylenol, Dilaudid CV: Stable. Continue metoprolol. Resp: No active issues, encourage IS. GI: full liquid diet, pantoprazole BID. Ok for tums prn; plan for 3 boosts today, continue calorie count; No TPN; possible DC tomorrow if continues to tolerate boosts/FLD : Urinating without issue F/E/N: On TPN. Full liquid diet. Let TPN and do no reorder for today. Endo: No active issues. Heme: CBC stable from yesterday. Trend labs daily. ID: Afebrile, no active issues. VTE Prophylaxis: Ambulation, SCD's, Heparin 5000 units SQ Tid Disposition: D/C home once taking in sufficient calories for safe discharge ?? Tomy Dewitt MD 08/10/2021 7:18 General Surgery PGY-3 Pager [phone] ? Cosigned by: Luís Morin MD at 08/11/2021 ??8:40 ??7:26 ??8:40 Attestation statement: I saw and examined the patient with the certified ophthalmic surgical assistant / blue team 08/11/2021 ??8:40 . I agree with the findings, assessment, and plan as outlined above. documented in this encounter Plan of Treatment Not on file documented as of this encounter Visit Diagnoses Diagnosis Encounter for preoperative screening laboratory testing for COVID-19 virus- Primary documented in this encounter Care Teams National Recruiter Relationship Specialty Start Date End Date Jovani Wharton DO [address] [place] [address] PCP - General 10/11/16 10/17/21 documented as of this encounter
--- OUTSIDE RECORDS SUMMARY | 2023-12-10 04:57 | XMS_ITS | Encounter Summary ---
Author Organization [facility] Address [address] [place] [address] Care Team Providers Care Data Communications Analyst Name Role Phone Jorge Chauhan MD Primary Care Provider Reason for Visit * Reason Onset Date Comments Other 10/20/2021 Encounter Details Date Type Department Care Team (Late st Contact Info) Description 10/20/2021 Telephone [facility] General Surgery - [address] [phone] Ollie Lee MD [address] [place] [address], [address] [place] [address] Other Social History Tobacco Use [...] Miscellaneous Notes * Telephone Encounter - Elena Mayorga, RN - 10/20/2021 1048 EDT Spoke with Roxanna. Advised I did not check chart enough to see Mathew is having COVID testing at [facility]. * Telephone Encounter - Pamela Doty - 10/20/2021 1040 EDT [facility] calling to say they received orders for labs, but cannot do Covid 19 test there. They can do other labs, but said Covid test needs to be scheduled thru the Provider. documented in this encounter Plan of Treatment Not on file documented as of this encounter Visit Diagnoses Not on filedocumented in this encounter Care Teams Data Communications Analyst Relationship Specialty Start Date End Date Jorge Chauhan MD [address] [place] [address] [place] [address] PCP - General Family Medicine - Primary Care 10/18/21 11/22/21 documented as of this encounter
--- OUTSIDE RECORDS SUMMARY | 2023-12-10 04:57 | XMS_ITS | Encounter Summary ---
Author Organization [facility] Address [address] [place] [address] Care Team Providers Care Senior Asset Manager Name Role Phone Jorge Chauhan MD Primary Care Provider Encounter Details Date Type Department Care Team (Late st Contact Info) Description 10/24/[address] [facility] General Surgery - [address] [address] Ollie Lee MD [address] [place] [address], [address] [place] [address] Social History Tobacco Use Types Packs/Day Years [...] No 07/31/2021 documented as of this encounter Plan of Treatment Not on file documented as of this encounter Visit Diagnoses Not on filedocumented in this encounter Care Teams Senior Asset Manager Relationship Specialty Start Date End Date Jorge Chauhan MD [address] [place] [address] PCP - General Family Medicine - Primary Care 10/18/21 11/22/21 documented as of this encounter
--- OUTSIDE RECORDS SUMMARY | 2023-12-10 04:57 | XMS_ITS | Encounter Summary ---
Author Organization [facility] Address [address] [place] [address] Care Team Providers Care Structural Test Engineer Name Role Phone Jorge Chauhan MD Primary Care Provider Luis Lauren MD Primary Care Provider [phone] Slade Tran MD Primary Care Provider [phone] Encounter Details Date Type Department Care Team (Late st Contact Info) Description 10/21/2021 Lab Requisition [facility] Pathology & Laboratory Medicine - [facility] [address] [place], [place] [id number] Outr Resulting Lab, Provider Social History Tobacco [...] Procedure Name Priority Date/Time Associated Diagnosis Comments HIV 1/2 ANTIGEN AND ANTIBODY, 4TH GENERATION Routine 10/20/2021 16:02 EDT documented in this encounter Results * HIV 1/2 ANTIGEN AND ANTIBODY, 4TH GENERATION (10/20/2021 16:02 EDT) [facility] HIV 1 and 2 Antibody/p24 Antigen, 4th Generation Negative Negative 10/23/2021 11:00 EDT [facility] Comment:If acute HIV-1 infec tion is suspected in a high risk patient, submit plasma specimen for HIV-1 RNA quantitation test. Blood VENOUS BLOOD / Unknown 10/20/2021 16:02 EDT 10/21/2021 22:12 EDT Narrative [facility] - 10/23/2021 11:00 EDT Fourth Generation assay performed on the Siemens Centaur XPT. Provider Outr Resulting Lab IMMUNOLOGY A ND SEROLOGY ORDERABLES [facility] [address] [place] [address] documented in this encounter Visit Diagnoses Not on filedocumented in this encounter Care Teams Structural Test Engineer Relationship Specialty Start Date End Date Jorge Chauhan MD [address] [place] [address] PCP - General Family Medicine - Primary Care 10/18/21 11/22/21 Luis Lauren MD [address] [place] [address] PCP - General Family Medicine - Primary Care 11/23/21 11/11/22 Slade Tran MD [address] [place] [address] PCP - General 11/12/22 documented as of this encounter
--- OUTSIDE RECORDS SUMMARY | 2023-12-10 04:57 | XMS_ITS | Encounter Summary ---
Author Organization [facility] Address [address] [place] [address] Care Team Providers Care Rehabilitation Engineer Name Role Phone Jorge Chauhan MD Primary Care Provider Encounter Details Date Type Department Care Team (Latest Contact Info) Description 10/21/2021 0:30 EDT - 10/21/2021 23:59 EDT Hospital Encounter [facility] Pre-Surgical Testing [address] [place], [place] [address] Discharge Disposition: Home or Self Care Social [...] Sign Reading Time Taken Comments Blood Pressure - - Pulse - - Temperature - - Respiratory Rate - - Oxygen Saturation - - Inhaled Oxygen Concentration - - Weight 70.3 kg (155 lb) 10/21/2021 1227 EDT Height 167.6 cm (5' 6) 10/21/2021 1227 EDT Body Mass Index 25.02 10/21/2021 1227 EDT documented in this encounter Functional Status [...] No 07/31/2021 documented as of this encounter Medications at [...] capsule Take 1 Capsule by mouth daily. HYDROmorphone (DILAUDID) 2 mg tablet Take 1 Tablet by mouth every 6 hours as needed for Pain. Daily Max: 8 mg 10 Tablet 10/26/2021 10/26/2021 ondansetron (ZOFRAN-ODT) 4 mg disintegrating tablet Take 1 Tablet by mouth every 8 hours as needed for Nausea. 15 Tablet 2 10/26/2021 10/26/2021 ondansetron (ZOFRAN-ODT) 4 mg disintegrating tablet Take 1 Tablet by mouth every 8 hours as needed for Nausea. 15 Tablet 2 10/26/2021 11/23/2021 documented as of this encounter Discharge Disposition Disposition Code Departure Means Destination Home or Self Care documented in this encounter Progress Notes * Garo Florentino RN - 10/21/2021 0030 EDT COVID 19 Screening Perioperative at time of PAT Please document by exception (only check those that apply). Have you had any of the following symptoms recently? no Yes Chronic ? Cough Shortness of breath or difficulty breathing Fever Chills Fatigue Muscle or body aches Severe Headache New loss of taste or smell Sore throat Congestion or runny nose Rash Nausea, vomiting, or diarrhea (rare in adults. More common in children) Please elaborate if yes: If a chronic symptom is reported use your judgement if an anesthesia review is needed. Have you been in close contact with someone who has been diagnosed with Covid 19 (within past 2 weeks)? no If yes, and is a member of your household, what was the date of their onset of symptoms/positive test? If above date is within 15 days of dos, place for anesthesia review. Have you tested positive in the last 90 days for COVID by PCR and or home test? no If yes: Home Test Date: PCR Date: PCR Test Location: Covid test plan for 10/22/[address] [facility]. Vaccination Status: _x__ Pt states fully vaccinated, __x_ Verified in chart ___ Pt states unvaccinated -Do not instruct patient regarding COVID testing, let [facility] coordinate this -Communicate status on yellow form for DOS REMIND PATIENT/parents of pediatric patients: Patients with a pending COVID-19 test are expected toremain masked and socially distanced at all times while at work or school, and refrain from going inside restaurants, bars, or other public areas where people are likely to be unmasked, or crowded public places. If patient develops any of these symptoms between now and their surgery date instruct them to call us back at [phone] to report symptoms Visitor Policy: Surgical & Procedural -Adult: 2 support people -Pediatrics: 2 support people - Inpatients are now permitted 2 support people at a time. One person is permitted to remain overnight (must be masked). - Pediatric Inpatients may 2 support people at a time. - Inpatient Psychiatry patients may have 2 (vaccinated) support people at a time - Outpatient visits: 2 support people for adults and pedi. (Exception: Cancer Center and [facility]- 1 support person) As a reminder, all support people are will be required to wear a mask that covers their nose and mouth for the entire time they are in the building. Anyone who cannot or will not wear a mask will be asked to leave. documented in this encounter OR Notes * Preprocedure Instructions - Garo Florentino RN - 10/21/2021 0030 EDT Mathew Mendez has been instructed as follows regarding medication administration for the day of thescheduled procedure. Date of Surgery: 10/25/21 Instructions for Taking Medications Day of Surgery Medication Sig Last Dose Hold DOS Take DOS allopurinoL (ZYLOPRIM) 100 mg tablet Take 100 mg by mouth daily. x amLODIPine (NORVASC) 10 mg tablet Take 10 mg by mouth daily. x cyanocobalamin, vitamin B-12, 5,000 mcg tablet, IR and ER, biphasic Take 500 mcg by mouth daily. 1 week preop x lisinopriL (PRINIVIL) 5 mg tablet Take 5 mg by mouth daily. 10/23/21 x metoprolol TARtrate (LOPRESSOR) 25 mg tablet Take 0.5 Tablets by mouth 2 times daily. x omeprazole (PRILOSEC) 40 mg capsule Take 40 mg by mouth daily. x GARO FLORENTINO RN documented in this encounter Plan of Treatment Not on file documented as of this encounter Visit Diagnoses Not on filedocumented in this encounter Discontinued Medications Medication Sig Discontinue Reason Start Date End Da te traMADol (ULTRAM) 50 mg tablet Take 1 Tablet by mouth every 6 hours as needed for Pain. Daily Max: 200 mg Therapy completed 08/19/2021 10/21/2021 omeprazole (PRILOSEC) 20 mg capsule Take 40 mg by mouth every morning. Dose adjustment 10/21/2021 amLODIPine (NORVASC) 5 mg tablet Take 10 mg by mouth daily. Dose adjustment 10/21/2021 documented as of this encounter Historical Medications * This list may reflect changes made after this encounter. Medication Sig Dispensed Refills Start Date End Date amLODIPine (NORVASC) 10 mg tablet Take 1 Tablet by mouth daily. omeprazole (PRILOSEC) 40 mg capsule Take 1 Capsule by mouth daily. added in this encounter Care Teams Rehabilitation Engineer Relationship Specialty Start Date End Date Jorge Chauhan MD [address] [place] [address] PCP - General Family Medicine - Primary Care 10/18/21 11/22/21 documented as of this encounter
--- OUTSIDE RECORDS SUMMARY | 2023-12-10 04:57 | XMS_ITS | Encounter Summary ---
Author Organization [facility] Address [address] [place] [address] Care Team Providers Care Oil Field Operator Name Role Phone Jorge Chauhan MD Primary Care Provider Reason for Visit * Reason Onset Date Comments Pre-visit Orders 10/20/2021 Labs Only 10/20/2021 Encounter Details Date Type Department Care Team (Late st Contact Info) Description 10/20/2021 Telephone [facility] General Surgery - [facility] [address] [place], [place] [id number] Ollie Lee MD [address] [facility], [address] [place] [address] Pre-visit Orders; Labs Only Social History Tobacco Use Types Packs/Day Years [...] Notes * Telephone Encounter - Elena Mayorga, LOYD - 10/20/2021 1031 EDT Orders faxed as requested. * Telephone Encounter - Deanne Ozuna - 10/20/2021 1005 EDT Fax patient's orders to fax # [phone] as patient has an appointment today. documented in this encounter Plan of Treatment Not on file documented as of this encounter Visit Diagnoses Not on filedocumented in this encounter Care Teams Oil Field Operator Relationship Specialty Start Date End Date Jorge Chauhan MD [address] [place] [address] PCP - General Family Medicine - Primary Care 10/18/21 11/22/21 documented as of this encounter
--- OUTSIDE RECORDS SUMMARY | 2023-12-10 04:57 | XMS_ITS | Encounter Summary ---
Author Organization [facility] Address [address] [place] [address] Care Team Providers Care Ophthalmology Assistant Name Role Phone Jorge Chauhan MD Primary Care Provider Encounter Details Date Type Department Care Team (Late st Contact Info) Description 10/20/2021 Orders Only [facility] General Surgery - Main [place] [address] [place] [address] Elena Mayorga RN [address] [place] [address] Paraesophageal hernia (Primary Dx) Social History Tobacco [...] gangrene documented in this encounter Care Teams Ophthalmology Assistant Relationship Specialty Start Date End Date Jorge Chauhan MD [address] [place] [id number] PCP - General Family Medicine - Primary Care 10/18/21 11/22/21 documented as of this encounter
--- OUTSIDE RECORDS SUMMARY | 2023-12-10 04:57 | XMS_ITS | Encounter Summary ---
Author Organization [facility] Address [address] [place] [address] Care Team Providers Care Conveyor Belt Operator Name Role Phone Jorge Chauhan MD Primary Care Provider Reason for Visit * Auth/Cert Specialty Diagnoses / Procedures Referred By Contac t Referred To Contact Diagnoses Paraesophageal hernia Procedures KS LAP, REPAIR PARAESOPHAGEAL HERNIA, INCL FUNDOPLASTY W/ MESH Laparoscopic paraesophageal hernia repair with mesh Referral ID Status Reason Start Date Expiration Date Visits Re quested Visits Authorized [id number] 10/05/2021 05/26/2022 1 1 Encounter Details Date Type Department Care Team (Late st Contact Info) Description 10/25/2021 5:47 EDT - 10/26/2021 13:43 EDT Hospital Encounter [facility] Periop Surge Capacity Unit [address] [place] [address] Ollie Lee MD [address] [facility], [facility] [address] [place] [address] Discharge Disposition: Home or Self Care Social [...] Sign Reading Time Taken Comments Blood Pressure 136/84 10/26/2021 0820 EDT Pulse - - Temperature 36.2 ??C (97.2 ??F) 10/26/2021 0820 [...] Code Departure Means Destination Home or Self Fpc documented in this encounter Progress Notes * Morelia Tierney, RT - 10/26/2021 1005 EDT Respiratory Consult/Progress [...] Slaughter MD 10/25/2021 11:51 General Surgery Housestaff #[id number] documented in this encounter H&P Notes * Jesus Herndon MD - 10/25/2021 0614 EDT Day of Surgery H+P Chief Complaint: Paraesophageal hernia HPI: Per Dr. Lee clinic note: This is a 66 y.o. male follows up with me today after being discharged from the hospital for his paraesophageal hernia. Just to summarize, he presented to the hospital in [place] with a paraesophageal hernia that was symptomatic for him. [facility] tendons surgeon that was covering there performed [...] disease) Stage IV, followed by nephrology @ [facility], no restrictions per pt ??? Diverticulitis Around [...] gastropexy. It was incarcerated. Dr. Lee note 4 I do not believe that the hernia was reduced. ??? COLECTOMY 2004 with colostomy ??? OTHER SURGICAL HISTORY 2006 Colostomy reversal ??? TOTAL KNEE ARTHROPLASTY Right around 2016 Social History Family history Social History Tobacco [...] Consented Jesus Herndon MD 10/25/2021 6:14 Surgery Publishing Director Pager #[phone] documented in this encounter Nursing Notes * Mary Banks RN - 10/25/2021 0648 EDT Preop Covid DOS screening questionnaire Please [...] Surgeon - Ollie Lee MD - 10/25/2021 4760 EDT OPERATIVE REPORT SERVICE DATE: 10/25/2021 PREOPERATIVE DIAGNOSIS: Paraesophageal hernia. POSTOPERATIVE DIAGNOSIS: Paraesophageal hernia. PROCEDURES: 1. Laparoscopic paraesophageal hernia repair with mesh. 2. Laparoscopic T[place]et fundoplication. SURGEON: Ollie Lee MD, FACS PUBLIC HEALTH OFFICER: Jesus Herndon MD ANESTHESIA: General endotracheal and [...] the esophagus, which was encircled with a [place] drain for retraction. Mediastinal dissection of the [...] then brought posterior to the esophagus. The Chase drain was released. A partial posterior fundoplication [...] no specimens removed, and no drains retained. Ollie Lee MD FACS / CD Confirmation: [id number] Dictation ID: [id number] cc: Ollie Lee MD [facility], [facility] - Surgery, [address] [place] [address] Jorge Chauhan MD, [place] [address] Jesus Herndon MD, [facility] - House Staff Mail, [address] [place] [address] documented in this encounter Miscellaneous Notes * [...] EDT BRIEF OP NOTE Surgeon: Dr. Lee Certified Physical Therapist Assistant: Dr. Herndon Pre-op diagnosis: Paraesophageal hernia Post-op [...] 8.88 4.00 - 10.40 K/cmm 10/26/2021 9:48 T [facility] RBC 3.20(L) 4.36 - 5.78 M/cmm 10/26/2021 9:48 [facility] Hemoglobin 9.9(L) 13.8 - 17.3 gm/dL 10/26/2021 9:48 [facility] HCT 29.8(L) 39.5 - 50.2 % 10/26/2021 9:48 [facility] MCV 93 81 - 95 fl 10/26/2021 9:48 [facility] MCH 30.9 27.6 - 33.0 pg 10/26/2021 9:48 [facility] MCHC 33.2 32.8 - 36.4 gm/dL 10/26/2021 9:48 T [facility] RDW-CV 15.5(H) <14.2 % 10/26/2021 9:48 T [facility] RDW-SD 52.9(H) <46.0 fl 10/26/2021 9:48 EDT [facility] PLT 153 141 - 377 K/cmm 10/26/2021 9:48 T [facility] MPV 11.8 9.5 - 12.7 fl 10/26/2021 9:48 [facility] Blood VENOUS BLOOD / Unknown Venipuncture / Unknown 10/26/2021 9:27 EDT 10/26/2021 9:42 EDT Jesus Herndon MD HEMATOLOGY & PF4 OR DERABLES Performing Organization Address City/State/[facility] Co de Phone Number [facility] [address] [place] [phone] * (ABNORMAL) COMPLETE BLOOD COUNT (10/25/2021 18:32 EDT) WBC 10.43(H) 4.00 - 10.40 K/cmm 10/25/2021 18:48 [facility] RBC 3.33(L) 4.36 - 5.78 M/cmm 10/25/2021 18:48 [facility] Hemoglobin 10.2(L) 13.8 - 17.3 gm/dL 10/25/2021 18:48 [facility] HCT 29.9(L) 39.5 - 50.2 % 10/25/2021 18:48 [facility] MCV 90 81 - 95 fl 10/25/2021 18:48 [facility] MCH 30.6 27.6 - 33.0 pg 10/25/2021 18:48 [facility] MCHC 34.1 32.8 - 36.4 gm/dL 10/25/2021 18:48 EDT [facility] RDW-CV 15.1(H) <14.2 % 10/25/2021 18:48 T [facility] RDW-SD 49.8(H) <46.0 fl 10/25/2021 18:48 T [facility] PLT 159 141 - 377 K/cmm 10/25/2021 18:48 T [facility] MPV 11.3 9.5 - 12.7 fl 10/25/2021 18:48 T [facility] Blood VENOUS BLOOD / Unknown Venipuncture / Unknown 10/25/2021 18:32 EDT 10/25/2021 18:36 EDT Jesus Herndon MD HEMATOLOGY & PF4 OR DERABLES Performing Organization Address City/State/[facility] Co de Phone Number [facility] [address] [place] [address] * (ABNORMAL) COMPLETE BLOOD COUNT AND DIFFERENTIAL (10/25/2021 12:22 EDT) WBC 12.50(H) 4.00 - 10.40 K/cmm 10/25/2021 12:34 [facility] RBC 3.19(L) 4.36 - 5.78 M/cmm 10/25/2021 12:34 [facility] Hemoglobin 9.9(L) 13.8 - 17.3 gm/dL 10/25/2021 12:34 [facility] HCT 29.4(L) 39.5 - 50.2 % 10/25/2021 12:34 [facility] MCV 92 81 - 95 fl 10/25/2021 12:34 [facility] MCH 31.0 27.6 - 33.0 pg 10/25/2021 12:34 [facility] MCHC 33.7 32.8 - 36.4 gm/dL 10/25/2021 12:34 [facility] RDW-CV 15.2(H) <14.2 % 10/25/2021 12:34 [facility] RDW-SD 51.7(H) <46.0 fl 10/25/2021 12:34 [facility] PLT 161 141 - 377 K/cmm 10/25/2021 12:34 [facility] MPV 11.1 9.5 - 12.7 fl 10/25/2021 12:34 [facility] % Neutrophils 87.5 % 10/25/2021 12:34 [facility] % Lymphocytes 3.7 % 10/25/2021 12:34 [facility] % Monocytes 6.6 % 10/25/2021 12:34 [facility] % Eosinophils 1.4 % 10/25/2021 12:34 [facility] % Basophils 0.3 % 10/25/2021 12:34 [facility] % Immature Grans 0.5 % 10/26/19 12:34 [facility] Absolute Neutrophils 10.95(H) 2.20 - 8.85 K/cmm 10/25/2021 12:34 [facility] Absolute Lymphocytes 0.46(L) 1.09 - 3.30 K/cmm 10/25/2021 12:34 [facility] Absolute Monocytes 0.82(H) 0.10 - 0.80 K/cmm 10/25/2021 12:34 [facility] Absolute Eosinophils 0.17 0.03 - 0.61 K/cmm 10/25/2021 12:34 [facility] ABS Basophils 0.04 0.01 - 0.11 K/cmm 10/25/2021 12:34 [facility] Absolute Immature Grans 0.06 0.00 - 0.06 K/cmm 10/25/2021 12:34 [facility] Type of Differential: Auto 10/25/2021 12:34 [facility] Blood VENOUS BLOOD / Unknown Venipuncture / Unknown 10/25/2021 12:22 EDT 10/25/2021 12:24 EDT Jesus Herndon MD PACKAGES & DNA PROB E ORDERABLES [facility] [address] [place] [address] documented in this encounter Visit Diagnoses Diagnosis [...] (only) Given 10/25/2021 13:57 EDT 1,000 mg chlorhexidine gluconate 2 % cloth 1 Each [...] Routine Rate Documented 10/25/2021 19:31 EDT 50 mL/ hr Rate Documented 10/25/2021 15:30 EDT 50 mL/hr [...] 1815, Until Sat10/26/21 at 0656, Pain, Routine Given 10/26/2021 6:16 EDT 0.5 mg Given 10/25/2021 22:27 EDT 0.5 mg Given 10/25/2021 18:23 EDT 0.5 mg ibuprofen (MOTRIN) tablet 600 mg 600 mg, oral, PRE-OP ONCE, 1 dose, On Sat10/25/21 at 0645, Routine, Preprocedure Given 10/25/2021 6:44 EDT 600 mg metoprolol TARtrate (LOPRESSOR) tablet 12.5 mg 12.5 mg, oral, 2 TIMES DAILY, First dose on Sat10/25/21 at 2100, Until Discontinued, Routine Given 10/26/2021 9:03 EDT 12. 5 mg Given 10/25/2021 20:56 EDT 12.5 mg ondansetron (PF) (ZOFRAN) injection 4 mg 4 mg, intravenous, EVERY 6 HOURS PRN, Starting on Sat10/25/21 at 1441, Until Sat10/26/21 at 1543, Nausea, Vomiting, Routine Given 10/26/2021 12:11 EDT 4 mg pantoprazole (PROTONIX) injection 40 mg 40 mg, intravenous, DAILY, First dose on Sat10/25/21 at 1500, Until Discontinued, Routine Given 10/26/2021 9:03 EDT 40 mg Given 10/25/2021 15:51 EDT 40 mg documented in this encounter Discontinued Medications Medication [...] Routine, Preprocedure 0644 (Given - Provider: Mary Banks, LOYD) metoprolol TARtrate (LOPRESSOR) tablet 12.5 mg 12.5 mg, oral, 2 TIMES DAILY, First dose on Sat10/25/21 at 2100, Until Discontinued, Routine 2056 (Given - Provider: Norma Mott, RN) 0903 (Given - Provider: Mame Nichole, RN) pantoprazole (PROTONIX) injection 40 mg 40 mg, intravenous, DAILY, First dose on Sat10/25/21 at 1500, Until Discontinued, Routine 1551 (Given - Provider: Becky Levy, LOYD) 0903 (Given - Provider: Mame Nichole, RN) Continuous Medication Order 10/24/2021 10/25/2021 10/26/2021 dextrose 5 % and 0.45 % NaCl with KCl 20 mEq/L infusion (CANCELED) at 50 mL/hr, intravenous, CONTINUOUS, Starting on Sat10/25/21 at 1215, Until Ladan 10/26/21 at 0656, Routine 1330 (New Bag - Provider: Shannan Chang, LOYD)1530 (Rate Documented - Provider: Becky Levy RN)1931 [...] Recovery (only) 1357 (Given - Provider: Shannan Chang, LOYD) bupivacaine (PF) (MARCAINE) 0.5% injection (CANCELED) PRN, [...] (only) 1204 (Given - Provider: Shannan Chang RN)1216 (Given - Provider: Shannan Chang RN) [...] Norma Mott RN)0905 (Given - Provider: Mame Nichole, LOYD)1231 (Given - Provider: Mame Nichole, LOYD) HYDROmorphone (PF) (DILAUDID) 0.5 mg/0.5 mL syringe [...] Until Ladan 10/26/21 at 0656, Pain, Routine 1823 (Given - [...] 0.1 mg/mL syringe 0.5 mg 1 022 bupivacaine (PF) (MARCAINE) 0.5% injection 1 10/25/2021 ceFAZolin (ANCEF) syringe 2 g 1 10/25/2021 diphenhydrAMINE (BENADRYL) i njection 12.5 mg 1 10/25/2021 lactated ringers (LR) infusion 1 10/25/2021 lidocaine (PF) 10 mg/mL (1 % ) injection 2 mg 1 10/25/2021 methylene blue (PROVAYBLUE) injection 1 05/2021 metoclopramide (REGLAN) injection 10 mg 1 0 10/25/2021 naloxone (NARCAN) injection 0.2 mg 1 2021 sodium chloride 0.9 % (NS) infusion 1 10/25 sodium chloride 0.9 % irrigation 1 10/26/19 sterile water (bottle) irrigation 1 022 Nursing Count Last Ordered Date First Orde red Date INSERT IRVIN CATHETER 1 10/25/2021 Discharge Count Last Ordered Date First Orde red Date DISCHARGE PATIENT 1 10/26/2021 documented in this encounter Care Teams Conveyor Belt Operator Relationship Specialty Start Date End Date Jorge Chauhan MD [address] [place] [phone] PCP - General Family Medicine - Primary Care 10/18/21 11/22/21 documented as of this encounter
--- OUTSIDE RECORDS SUMMARY | 2023-12-10 04:57 | XMS_ITS | Encounter Summary ---
Author Organization [facility] Address [address] [place] [address] Care Team Providers Care Cutting Pressman Name Role Phone Dio Jovani Pearson Primary Care Provider [phone] Reason for Visit * Reason Comments Follow-up hospital f/u * Consult (See Order Priority) - Order Cancelled Specialty Diagnoses / Procedures Referred By Devaughn bobo Referred To Contact General Surgery Diagnoses Paraesophageal hernia Ashlie Greene MD [address] [place] [phone] Ollie Lee MD [address] [place] [phone] Referral ID Status Reason Start Date Expiration Date Visits Requested Visits Authorized [id number] Order Cancelled Specialty Services Required 08/11/2021 1 1 Encounter Details Date Type Department Care Team (Late st Contact Info) Description 08/25/2021 10:45 EDT Office Visit [facility] General Surgery - [address] [address] Ollie Lee MD [address] [place] [phone] Paraesophageal hernia (Primary Dx) Social History [...] Sign Reading Time Taken Comments Blood Pressure 125/87 08/25/2021 1028 EDT Pulse 73 08/25/2021 1028 EDT Temperature - - Respiratory Rate - - Oxygen Saturation - - Inhaled Oxygen Concentration - - Weight 68.9 kg (152 lb) 08/25/2021 1028 EDT Height - - Body Mass Index 24.53 07/31/2021 2000 EST documented in this encounter Functional Status [...] Progress Notes * Ollie Lee MD - 08/25/2021 1045 EDT Division of General Surgery Date of Service: 08/25/2021 PROBLEM: 1. Paraesophageal hernia HISTORY OF PRESENT ILLNESS: This is a 66 y.o. male follows up with me today after being discharged from the hospital for his paraesophageal hernia. Just to summarize, he presented to the hospital in [place] with a paraesophageal hernia that was symptomatic for him. The [facility]'s tendons surgeon that was covering [...] nutritional supplements. He has no significant pain. No family history on file. Social History Socioeconomic History ??? Marital status: Spouse name: None ??? Number of children: None ??? Years of education: None ??? Highest education level: None Occupational History ??? None Tobacco Use ??? Smoking status: Never Smoker ??? Smokeless tobacco: Never Used Substance and Sexual Activity ??? Alcohol use: None ??? Drug use: None ??? Sexual activity: None Other Topics Concern ??? None Social History Narrative ??? None Social Determinants of Health Financial Resource Strain: Not on file Food Insecurity: Not on file Transportation Needs: Not on file Physical Activity: Not on file Stress: Not on file Social Connections: Not on file Current Outpatient Medications Medication ??? allopurinoL (ZYLOPRIM) 100 mg tablet ??? amLODIPine (NORVASC) 5 mg tablet ??? cyanocobalamin, vitamin B-12, 5,000 mcg tablet, IR and ER, biphasic ??? lisinopriL (PRINIVIL) 5 mg tablet ??? metoprolol TARtrate (LOPRESSOR) 25 mg tablet ??? omeprazole (PRILOSEC) 20 mg capsule ??? traMADol (ULTRAM) 50 mg tablet No current facility-administered medications for this visit. Allergies Allergen Reactions ??? Morphine Hives REVIEW OF SYSTEMS: A ten point review of systems was performed and all were negative except as listed below. Patient Active Problem List Diagnosis ??? Paraesophageal hernia OBJECTIVE: Vitals: 08/25/21 1028 BP: 125/87 BP Cuff Location: Left arm BP Patient Position: Sitting BP Cuff Sizes: Adult, regular Pulse: 73 Weight: 68.9 kg (152 lb) Body mass index is 24.53 kg/m??. He is afebrile. General: No acute distress. HEENT: Normal. Neck: Supple. Skin: Normal. Lungs: Clear, bilaterally. Heart: Regular rate and rhythm. Abdomen: Soft, nondistended, nontender, no masses, no organomegaly. Midline incision is well-healed. He has hernias to the right of the incision. There is at least 3 of them. The patient had previous colon resection for diverticulitis with a Rausch's procedure and reversal. I think all of this is adding to his hernias. Vascular: Normal. Musculoskeletal: Normal. Neurologic: Normal. ASSESSMENT & PLAN: With a symptomatic paraesophageal hernia. It was incarcerated. However he has been doing better now. He had a gastropexy. We tried to delay his surgery he did not want to go in the abdomen shortly after his exploratory laparotomy and gastropexy. The gastropexy will make the surgery for definitive paraesophageal hernia repair more difficult. However I still think this can be done laparoscopically to give him better and quicker recovery after surgery. Sometimes we do need to convert to an open procedure. We will leave the hernias alone for now and readdress those at a later time. The benefits and risks of the laparoscopic paraesophageal repair were discussed including infection, bleeding, injury to the esophagus, stomach, liver, spleen, heart, lungs, underlying blood vessels,persistent dysphagia, gas, bloat and recurrence of the paraesophageal hernia, GERD and conversion to an open procedure. He understood all this and was willing to proceed. We will forego manometry. Wewill perform a partial wrap to minimize his post procedure side effects. I do not think he has achalasia. He had a barium swallow and upper GI study which showed no evidence of esophageal dilatation or narrowing at the GE junction. One of his relatives had an antireflux surgery and still has side ef fects from that and he wanted to avoid that if possible. We will perform a toupee fundoplication atthe time of surgery to prevent reflux. Since he is doing relatively well now, I would like to get him to about 3 months from his exploratory laparotomy and gastropexy to allow time for inflammation and adhesions to subside. Surgery was scheduled for the first week in October. Of course we will revisit the need for more emergent surgery if he stops tolerating food. He should avoid carbonation and eat multiple small meals as instructed. Some of this note was transcribed with Dragon dictating software. While it was proofread, it may still contain unnoticed grammatical or word errors due to incorrect transcribing. --Ollie Lee MD CC: Primary Care Provider: Jovani Wharton DO documented in this encounter Plan of Treatment Not on file documented as of this encounter Visit Diagnoses Diagnosis Paraesophageal hernia- Primary Diaphragmatic hernia without mention of obstruction or gangrene documented in this encounter Historical Medications * This list may reflect changes made after this encounter. Medication Sig Dispensed Refills Start Date End Date cyanocobalamin, vitamin B-12, 5,000 mcg tablet, IR and ER, biphasic Take 500 mcg by mouth daily. lisinopriL (PRINIVIL) 5 mg tablet Take 1 Tablet by mouth daily. amLODIPine (NORVASC) 5 mg tablet Take 10 mg by mouth daily. 10/21/2021 added in this encounter Orders Case Request Count Last Ordered Date First Orde red Date CASE REQUEST OPERATING ROOM 1 08/25/2021 documented in this encounter Care Teams Cutting Pressman Relationship Specialty Start Date End Date Jovani Wharton DO [address] [place] [address] PCP - General 10/11/16 10/17/21 documented as of this encounter
--- OUTSIDE RECORDS SUMMARY | 2023-12-10 04:57 | XMS_ITS | Encounter Summary ---
Author Organization [facility] Address [address] [place] [address] Care Team Providers Care Dental Equipment Repairer Name Role Phone Jorge Chauhan MD Primary Care Provider Luis Lauren MD Primary Care Provider [phone] lSade Tran MD Primary Care Provider [phone] Encounter Details Date Type Department Care Team (Late st Contact Info) Description 10/21/2021 Lab Requisition [facility] Pathology & Laboratory Medicine - [facility] [address] [place], [place] [address] Outr Resulting Lab, Provider Social History Tobacco [...] Procedure Name Priority Date/Time Associated Diagnosis Comments HEPATITIS C AB W REFLEX TO HCV RNA BY PCR Routine 10/20/2021 16:02 EDT documented in this encounter Results * HEPATITIS C AB W REFLEX TO HCV RNA BY PCR (10/20/2021 16:02 EDT) Hep C Antibody Negative Negative 10/23/2021 10:57 EDT [facility] Blood VENOUS BLOOD / Unknown 10/20/2021 16:02 EDT 10/21/2021 22:12 EDT Provider Outr Resulting Lab CHEMISTRY & BLOOD GAS ORDERABLES [facility] [address] [place] [address] documented in this encounter Visit Diagnoses Not on filedocumented in this encounter Care Teams Dental Equipment Repairer Relationship Specialty Start Date End Date Jorge Chauhan MD [address] [place] [address] PCP - General Family Medicine - Primary Care 10/18/21 11/22/21 Luis Lauren MD [address] [place] [address] PCP - General Family Medicine - Primary Care 11/23/21 11/11/22 Slade Tran MD [facility] [place] [place] [address] PCP - General 11/12/22 documented as of this encounter
--- OUTSIDE RECORDS SUMMARY | 2023-12-10 04:57 | XMS_ITS | Encounter Summary ---
Author Organization [facility] Address [address] [place] [address] Care Team Providers Care Automobile Travel Club Counselor Name Role Phone Jorge Chauhan MD Primary Care Provider Encounter Details Date Type Department Care Team (Late st Contact Info) Description 10/18/[address] [facility] General Surgery - [facility] [address] [place], [place] [id number] Leni Blanchard RN Pre-op evaluation (Primary Dx); Paraesophageal hernia Social History Tobacco Use Types Packs/Day Years [...] as of this encounter Visit Diagnoses Diagnosis Pre-op evaluation- Primary Preoperative examination, unspecified Paraesophageal hernia Diaphragmatic hernia without mention of obstruction or gangrene documented in this encounter Care Teams Automobile Travel Club Counselor Relationship Specialty Start Date End Date Jorge Chauhan MD [address] [place] [phone] PCP - General Family Medicine - Primary Care 10/18/21 11/22/21 documented as of this encounter
--- OUTSIDE RECORDS SUMMARY | 2023-12-10 04:58 | XMS_ITS | Encounter Summary ---
Author Organization Formerly [facility] [place] [address] Care Team Providers Care Leaf Stripper Name Role Phone Govind Mendes Primary Care Provider + Encounter Details Date Type Department Care Team (Latest Contact Info) Description 11/06/2023 Travel Social History Tobacco Use Types Packs/Day Years Used Date Smoking Tobacco: Never Smokeless Tobacco: Never Comments:denies vaping Alcohol Use Standard Drinks/Week Comments Not Currently 0 (1 standard drink = 0.6 oz pur e alcohol) none since 03/2020 Sex and Gender Information Value Date Recorded Sex Assigned at Not on file Gender Identity Not on file Sexual Orientation Not on file documented as of this encounter Plan of Treatment Upcoming Encounters Date Type Department Care Team (Latest Contact Info) Description 01/02/2024 7:30 AM EDT Hospital Encounter [place] [address] Lawrence Gar MD [facility] DR [place] [address] 01/02/2024 7:30 AM EDT - 01/02/2024 8:30 AM EDT Surgery [place] [phone] Lawrence Gar MD [facility] DR [place]STRO[place] [address] EGD, UPPER GI ENDOSCOPY (WRVU 2.09) 11/17/2024 4:20 PM EDT Office [place] [address] Lawrence Gar MD [facility] [place] [address] Scheduled Procedures Name Priority Associated Diagnoses Date/Ti me EGD, UPPER GI ENDOSCOPY (WRVU 2.09) Sharma's esophagus with dysplasia 01/02/2024 7:30 AM EDT documented as of this encounter Visit Diagnoses Not on filedocumented in this encounter Care Teams Leaf Stripper Relationship Specialty Start Date End Date Govind Mendes [place] [address] PCP - General Internal Medicine 11/06/23 documented as of this encounter
--- OUTSIDE RECORDS SUMMARY | 2023-12-10 04:58 | XMS_ITS | Encounter Summary ---
Author Organization [facility] Address [address] [place] [address] Care Team Providers Care Hot Box Operator Name Role Phone Jovani Wharton DO Primary Care Provider [phone]- [phone] Reason for Visit * (Routine/Next Available) - Receiving Office to Obtain Authorization Specialty Diagnoses / Procedures Referred By Devaughn bobo Referred To Contact Procedures XR OUTSIDE IMAGES BODY Unknown, Provider, Referral ID Status Reason Start Date Expiration Date Visits Requested Visits Authorized [id number] Receiving Office to Obtain Authorization 07/27/2021 1 1 Encounter Details Date Type Department Care Team (Latest Contact Info) Description 07/27/2021 12:19 EST - 07/27/2021 23:59 EST Hospital Encounter [facility] Secondary [place] Discharge Disposition: Home or Self Care Social History Tobacco Use Types Packs/Day Years Used Date Smoking Tobacco: Never Assessed Interpersonal Safety Answer Date Record ed Physically Hurt Never 12/27/2019 Verbally Threaten Not on file 12/27/2019 Sex and Gender Information Value Date Recorded Sex Assigned at Not on file Gender Identity Male 10/18/2021 9:41 EDT Sexual Orientation Not on file documented as of this encounter Discharge Disposition Disposition Code Departure Means Destination Home or Self Care documented in this encounter Plan of Treatment Not on file documented as of this encounter Procedures Procedure Name Priority Date/Time Associated Diagnosis Comments XR OUTSIDE IMAGES BODY Routine 07/27/2021 12:19 EST documented in this encounter Results * XR OUTSIDE IMAGES BODY (07/27/2021 12:19 EST) Narrative 07/27/2021 12:19 EST This is a non-reportable exam. Provider Unknown MD [facility] OTHER IMAGING OR DERABLES documented in this encounter Visit Diagnoses Not on filedocumented in this encounter Care Teams Hot Box Operator Relationship Specialty Start Date End Date Jovani Wharton DO [address] [place] [address] PCP - General 10/11/16 10/17/21 documented as of this encounter
--- OUTSIDE RECORDS SUMMARY | 2023-12-10 04:58 | XMS_ITS | Encounter Summary ---
Author Organization [facility] Address [address] [place] [address] Care Team Providers Care Hospitality Host Name Role Phone Jovani Wharton DO Primary Care Provider +1- [phone] Encounter Details Date Type Department Care Team (Latest Contact Info) Description 07/31/2021 Travel Social History Tobacco Use Types Packs/Day [...] 15:32 EST documented as of this encounter Plan of Treatment Not on file documented as of this encounter Visit Diagnoses Not on filedocumented in this encounter Care Teams Hospitality Host Relationship Specialty Start Date End Date Jovani Wharton DO [address] [place] [address] PCP - General 10/11/16 10/17/21 documented as of this encounter
--- OUTSIDE RECORDS SUMMARY | 2023-12-10 04:58 | XMS_ITS | Encounter Summary ---
Author Organization [facility] Address [address] [place] [address] Care Team Providers Care Biophysics Scientist Name Role Phone DioJovani liu Michel Primary Care Provider +1- [phone] Reason for Visit * (Routine/Next Available) - Receiving Office to Obtain Authorization Specialty Diagnoses / Procedures Referred By Devaughn bobo Referred To Contact Procedures CT OUTSIDE IMAGES BODY Imaging, External Referral ID Status Reason Start Date Expiration Date Visits Requested Visits Authorized [id number] Receiving Office to Obtain Authorization 07/23/2021 1 1 Encounter Details Date Type Department Care Team (Latest Contact Info) Description 07/23/2021 21:40 EST - 07/23/2021 23:59 EST Hospital Encounter [facility] Secondary [place] Discharge Disposition: Home [...] Procedure Name Priority Date/Time Associated Diagnosis Comments CT OUTSIDE IMAGES BODY Routine 07/23/2021 21:40 EST documented in this encounter Results * CT OUTSIDE IMAGES BODY (07/23/2021 21:40 EST) Narrative 07/23/2021 21:40 EST This is a non-reportable exam. External Imaging IMG OTHER IMAGING OR DERABLES documented in this encounter Visit Diagnoses Not on filedocumented in this encounter Care Teams Biophysics Scientist Relationship Specialty Start Date End Date Jovani Wharton DO [address] [place] [address] PCP - General 10/11/16 10/17/21 documented as of this encounter
--- OUTSIDE RECORDS SUMMARY | 2023-12-10 04:58 | XMS_ITS | Encounter Summary ---
Author Organization [facility] Address [address] [place] [address] Care Team Providers Care General Farmworker Name Role Phone Jovani Wharton DO Primary Care Provider +1- [phone] Jorge Chauhan MD Primary Care Provider Luis Lauren MD Primary Care Provider +1 -[phone] Slade Tran MD Primary Care Provider [phone] Encounter Details Date Type Department Care Team (Late st Contact Info) Description 03/03/2021 Lab Requisition [facility] Pathology & Laboratory Medicine - [facility] [address] [place], [place] [id number] Outr Resulting Lab, Provider Social History Tobacco [...] Procedure Name Priority Date/Time Associated Diagnosis Comments ZZCOVID-19 TEST [facility] PCR Today 03/02/2021 13:41 EDT COVID-19 TESTING Routine 03/02/2021 13:4 1 EDT documented in this encounter Results * COVID-19 TEST [facility] PCR (03/02/2021 13:41 EDT) Swab ENTIRE NASOPHARYNX / Unknown 03/02/2021 13:41 EDT 03/03/2021 16:26 EDT Provider Outr Resulting Lab MICROBIOLOGY - GENERAL ORDERABLES Performing Organization Address City/[facility]/ZIP Co de Phone Number [facility] [address] [place] [address] * COVID-19 TESTING (03/02/2021 13:41 EDT) COVID-19 rt-PCR Result Negative Negative 03/04/2021 11:36 EDT [facility] Comment: This test has not been FDA cleared or approved. This test has been authorized by FDA under an EUA for use by authorized laboratories. This test has been authorized only for detection of nucleic acid from 2019-nCoV, not for any other viruses or pathogens. This test is only authorized for the duration of the declaration that circumstances exist justifying the authorization of emergency use of in vitro diagnostic tests for detection and/or diagnosis of 2019-nCoV under section 564(b)(1) of Act, 21 U.S.C ?? 360bbb-3(b) (1), unless the authorization is terminated or revoked sooner. Negative results do not preclude 2019-nCoV infection and should not be used as the sole basis for treatment or other patient management decisions. Negative results must be combined with clinical observations, patient history, and epidemiological information. Testing was performed using the shama SARS-CoV-2 assay ([employer] on the Shama 6800 System Performing Lab Shama [address] [facility] 03/04/2021 11:36 EDT [facility] Swab 03/02/2021 13:4 1 EDT 03/03/2021 16:26 EDT Provider Outr Resulting Lab MICROBIOLOGY - GENERAL ORDERABLES [facility] [address] [place] [address] documented in this encounter Visit Diagnoses Not on filedocumented in this encounter Care Teams General Farmworker Relationship Specialty Start Date End Date Jovani Wharton DO [address] [place] [address] PCP - General 10/11/16 10/17/21 Jorge Chauhan MD [address] [place], [place] [address] PCP - General Family Medicine - Primary Care 10/18/21 11/22/21 Luis Lauren MD [address] [place], [place] [id number] PCP - General Family Medicine - Primary Care 11/23/21 11/11/22 Slade Tran MD [address] [place], [place] [address] [address] PCP - General 11/12/22 documented as of this encounter
--- OUTSIDE RECORDS SUMMARY | 2023-12-10 04:58 | XMS_ITS | Encounter Summary ---
Author Organization [facility] [address] Care Team Providers Care Head Animal Keeper Name Role Phone Govind Mendes Primary Care Provider + Encounter Details Date Type Department Care Team (Late st Contact Info) Description 11/29/2023 Orders [place] [address] Lawrence Gar MD [facility] [place] [address] Sharma's esophagus with dysplasia (Primary Dx) Social History Tobacco Use Types [...] 7:30 AM EDT Hospital En[place] [address] Lawrence Gar MD [facility] [place] [address] 01/02/2024 7:30 AM EDT - 01/02/2024 8:30 AM EDT [place] [address] Lawrence Gar MD [facility] [place] [address] EGD, UPPER GI ENDOSCOPY (WRVU 2.09) 11/17/2024 4:20 PM EDT Office [place] [address] Lawrence Gar MD [facility] [place] [address] Scheduled Orders Name Type Priority Associated Diagnoses Orde r Schedule ENDOSCOPY CASE REQUEST: EGD, UPPER GI ENDOSCOPY (WRVU 2.09) Procedures Routine Sharma's esophagus with dysplasia Ordered: 11/29/2023 Scheduled Procedures Name Priority Associated Diagnoses Date/Ti me EGD, UPPER GI ENDOSCOPY (WRVU 2.09) Sharma's esophagus with dysplasia 01/02/2024 7:30 AM EDT documented as of this encounter Visit Diagnoses Diagnosis Sharma's esophagus with dysplasia- Primary Sharma's esophagus Shrama's esophagus with dysplasia Sharma's esophagus documented in this encounter Care Teams Head Animal Keeper Relationship Specialty Start Date End Date Govind Mendes [place] [address] [place] [address] PCP - General Internal Medicine 11/06/23 documented as of this encounter
--- OUTSIDE RECORDS SUMMARY | 2023-12-10 04:58 | XMS_ITS | Encounter Summary ---
Author Organization [facility] Address [address] [place] [address] Care Team Providers Care Rn Rehabilitation Name Role Phone Jovani Wharton DO Primary Care Provider [phone]- [phone] Jorge Chauhan MD Primary Care Provider Luis Lauren MD Primary Care Provider [phone] Slade Tran MD Primary Care Provider [phone] Encounter Details Date Type Department Care Team (Late st Contact Info) Description 08/09/2020 Lab Requisition [facility] Pathology & Laboratory Medicine - [facility] [address] [place], [place] [id number] Outr Resulting Lab, Provider Social History Tobacco [...] Procedure Name Priority Date/Time Associated Diagnosis Comments PSA TOTAL, DIAGNOSTIC Routine 08/09/2020 9:12 EDT documented in this encounter Results * PSA TOTAL, DIAGNOSTIC (08/09/2020 9:12 EDT) PSA 0.9 0.0 - 4.5 ng/mL 08/09/2020 22:41 EDT [facility] Blood VENOUS BLOOD / Unknown 08/09/2020 9:12 EDT 08/09/2020 21:13 EDT Narrative [facility] - 08/09/2020 22:41 EDT NOTE: Serum PSA concentration should not be interpreted as absolute evidence for the presence or absence of malignant disease. Assayed on Siemens [employer] XPT using chemiluminescent technology.??Values obtained by using different assay methods cannot be used interchangeably. Provider Outr Resulting Lab CHEMISTRY & BLOOD GAS ORDERABLES [facility] [address] [place] [address] documented in this encounter Visit Diagnoses Not on filedocumented in this encounter Care Teams Rn Rehabilitation Relationship Specialty Start Date End Date Jovani Wharton DO [address] [place], [place] [address] PCP - General 10/11/16 10/17/21 Jorge Chauhan MD [address] [place], [place] [address] PCP - General Family Medicine - Primary Care 10/18/21 11/22/21 Luis Lauren MD [address] [place], [place] [address] PCP - General Family Medicine - Primary Care 11/23/21 11/11/22 Slade Tran MD [facility] [place] [address] PCP - General 11/12/22 documented as of this encounter
--- OUTSIDE RECORDS SUMMARY | 2023-12-10 04:58 | XMS_ITS | Encounter Summary ---
Author Organization [facility] Address [facility] [place] [address] Care Team Providers Care Drone Software Development Engineer Name Role Phone Govind Mendes Primary Care Provider + Encounter Details Date Type Department Care Team (Late st Contact Info) Description 11/19/2023 4:40 PM EDT Office [place] [address] Lawrence Gar MD [facility] DR [place] [address] Alcohol-induced chronic pancreatitis; Sharma's esophagus with dysplasia Social History Tobacco Use Types Packs/Day Years [...] Sign Reading Time Taken Comments Blood Pressure 149/83 11/19/2023 4:42 PM EDT Pulse 59 11/19/2023 4:42 PM EDT Temperature - - Respiratory Rate - - Oxygen Saturation 99% 11/19/2023 4:42 PM EDT Inhaled Oxygen Concentration - - Weight 72.8 kg (160 lb 6.4 oz) 11/19/2023 4:42 P M EDT Height 167.6 cm (5' 6) 11/19/2023 4:42 PM EDT Body Mass Index 25.89 11/19/2023 4:42 PM EDT documented in this encounter Progress Notes * Lawrence Gar MD - 11/19/2023 4:40 PM EDT GI Problem List: #Acute on chronic pancreatitis-likely ETOH induced -His work-up of pancreatitis has included a CT scan most recently in May 2020 that was notable for a calcified solitary gallstone, nondilated common bile duct and and fatty liver disease. There was no comment on that scan of pancreatitis. MRI of the pancreas in July 2020 showed a hiatal hernia, a normal common bile duct and normal-appearing gallbladder and a fatty replaced pancreas. -EUS 10/14: - Lobularity and hyperechoic strands and foci in the head and neck of pancreas suggestive of chronic pancreatitis. - 7 mm stone in the gallbladder with normal biliary tree. #GERD and Sharma's esophagus-last EGD 11/17 # Colon polyps-last colonoscopy 11/17 #Diverticulitis-s/p partial colectomy HPI Comments: Returns for f/up. He is status post upper and lower endoscopy last week that showed short segment Sharma's, evidence for previous Mihir fundoplication, mild antral gastritis and a small sigmoid polyp in the colon in a background of diverticulosis and previous surgery. In the interval since his upper endoscopy he states he actually feels quite a bit better with improvement in his abdominal symptoms and bowel irregularity. Previously, he mentioned that he would sometimes get bound up and then would have a bowel movement which began relatively hard but then it would continue with loose stools and diarrhea. Previous to that type of bowel movement he would feel bloated and uncomfortable after eating but then will get relief with a bowel movement. He also mentioned having an episode this winter with relatively severe abdominal pain and diarrhea for which she was seen in a local emergency department. While awaiting testing, he had several bowelmovements and then felt quite a bit better and went home before they did any testing. He has not had documented pancreatitis in several years. Current Outpatient Medications on File Prior to Visit Medication Sig Dispense Refill lisinopriL (Zestril) 20 mg tablet Take 1 tablet by mouth daily. 90 tablet 3 calciTRIoL (Rocaltrol) 0.25 mcg capsule Take 1 capsule by mouth daily. 90 capsule 3 empagliflozin (Jardiance) 10 mg tablet Take 10 mg by mouth daily. b complex vitamins Tablet Take 1 tablet by mouth daily. ferrous gluconate (Ferate) 324 mg (37.5 mg iron) tablet Take 324 mg by mouth every other day. metoprolol succinate XL (Toprol-XL) 50 mg ER 24 hr tablet Take 50 mg by mouth daily. amLODIPine (Norvasc) 5 mg tablet Take 1 tablet by mouth daily. (Patient taking differently: Take 2.5 mg by mouth daily.) 90 tablet 3 acetaminophen (Tylenol) 325 mg tablet Take 650 mg by mouth Every 4 hours as needed. triamcinolone (KENALOG) 0.1 % Ointment Apply to affected areas on ankles twice daily x 2 weeks, then reduce to once daily x 2 weeks. For recurrences, okay to use up to 14 days total per month (Patient taking differently: as needed. Apply to affected areas on ankles twice daily x 2 weeks, then reduce to once daily x 2 weeks. For recurrences, okay to use up to 14 days total per month) 45 g 3 No current facility-administered medications on file prior to visit. Patient Active Problem List Diagnosis Code Pancreatitis K85.90 Gastroesophageal reflux K21.9 Diverticulitis K57.92 Alcoholism F10.20 HTN (hypertension) I10 Chronic renal disease N18.9 Anemia D64.9 Gout M10.9 HLD (hyperlipidemia) E78.5 Lumbar spondylosis M47.816 Gallstone K80.20 Status post total knee replacement Z96.659 Ruptured extensor tendon of hand or wrist S66.819A Alcohol-induced chronic pancreatitis K86.0 Screen for colon cancer Z12.11 Gastroesophageal reflux disease K21.9 Acute kidney injury superimposed on chronic kidney disease N17.9, N18.9 Alcohol abuse F10.10 Alcohol withdrawal syndrome F10.939 Alcoholic ketoacidosis E87.29 Elevated transaminase measurement R74.01 Gastroesophageal reflux disease with esophagitis K21.00 History of stress test Z92.89 Hypokalemia E87.6 Hypomagnesemia E83.42 Incisional hernia, without obstruction or gangrene K43.2 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 Unintended weight loss R63.4 Anemia due to chronic kidney disease N18.9, D63.1 Sharma's esophagus K22.70 Biceps tendinitis M75.20 Bursitis of left knee M70.52 Diverticulitis of intestine K57.92 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 History of alcohol abuse F10.11 History of partial surgical removal of colon Z90.49 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.81 Impingement syndrome of shoulder region M75.40 Obstructive sleep apnea syndrome G47.33 Review of Systems: Constitutional: no weight loss HEENT: no visual changes, no URI symptoms Cardio: no chest pain Resp: no cough, no SOB, no LEI or orthopnea Hem/Lymph: no new lumps or bumps on body GI: see HPI : no dysuria Integumentary: no new rashes Musculoskeletal: no new joint pains Neuro: no new numbness, weakness in extremities Objective: Physical Exam: Patient Vitals for the past 24 hrs: Pulse BP SpO2 11/19/23 1642 59 149/83 99 % Weight: 72.8 kg (160 lb 6.4 oz) Constitutional: Appears well-developed and well-nourished. Eyes: No scleral icterus. remainder of exam deferred Assessment and Plan: 1) Short segment Sharma's esophagus 2) status post Mihir fundoplication 3) colon polyps 4) diverticular disease 5) bowel irregularity that is likely in part IBS related 6) chronic pancreatitis without recent flare Plan: I discussed the findings of his recent upper endoscopies and reassured him. The pathology results are still pending. I also suggested that he try taking MiraLAX on a daily basis to try to improve his bowel irregularity. Will otherwise plan a follow-up visit in 1 year or sooner as needed. Most of this 30 minute visit spent in discussion and coordination of care regarding pancreatitis, Sharma's and colon polyps. Lawrence Gar MD red hat engineer Director, GI Endoscopy Section of Gastroenterology [place] [address] Cc:[place] [address] [place] [address] documented in this encounter Plan of Treatment Upcoming Encounters Date Type Department Care Team (Latest Contact Info) Description 01/02/2024 7:30 AM EDT Hospital Encounter [place] [address] Lawrence Gar MD [facility] [place] [address] 01/02/2024 7:30 AM EDT - 01/02/2024 8:30 AM EDT Surgery [place] [address] Lawrence Gar MD [facility] DR [place] [address] EGD, UPPER GI ENDOSCOPY (WRVU 2.09) 11/17/2024 4:20 PM EDT Office [place] [address] Lawrence Gar MD [facility] [place] [address] Scheduled Procedures Name Priority Associated Diagnoses Date/Ti me EGD, UPPER GI ENDOSCOPY (WRVU 2.09) Sharma's esophagus with dysplasia 01/02/2024 7:30 AM EDT documented as of this encounter Visit Diagnoses Diagnosis Alcohol-induced chronic pancreatitis Chronic pancreatitis Sharma's esophagus with dysplasia Sharma's esophagus Sharma's esophagus with dysplasia Sharma's esophagus documented in this encounter Care Teams Drone Software Development Engineer Relationship Specialty Start Date End Date Govind Mendes PA [facility] [place] [address] PCP - General Internal Medicine 11/06/23 documented as of this encounter
--- OUTSIDE RECORDS SUMMARY | 2023-12-10 04:58 | XMS_ITS | Clinical Summary ---
Author Organization [facility] Address [facility] [place] [address] Care Team Providers Care Lumber Inspector Name Role Phone Govind Mendes Primary Care Provider + Allergies Active Allergy Reactions Criticality Noted Date Comments Morphine Hives 10/17/2016 Medications Medication Sig Dispensed Refills Start Date End Date Status triamcinolone (KENALOG) 0.1 % Ointment Apply to affected areas on ankles twice daily x 2 weeks, then reduce to once daily x 2 weeks. For recurrences, okay to use up to 14 days total per month 45 g 3 08/11/2020 Active Additional Information Patient taking differently: PRN, Apply to affected areas on ankles twice daily x 2 weeks, then reduce to once daily x 2 weeks. For recurrences, okay to use up to 14 days total per month, Reported on 01/21/2023 acetaminophen (Tylenol) 325 mg tablet Take 650 mg by mouth Every 4 hours as needed. 10/26/2021 Active metoprolol succinate XL (Toprol-XL) 50 mg ER 24 hr tablet Take 50 mg by mouth daily. 07/19/2022 Active amLODIPine (Norvasc) 5 mg tablet Take 1 tablet by mouth daily. 90 tablet 3 08/17/2022 Active Additional Information Patient taking differently: 2.5 mgOral DAILY, Reported on 01/21/2023 ferrous gluconate (Ferate) 324 mg (37.5 mg iron) tablet Take 324 mg by mouth every other day. Active empagliflozin (Jardiance) 10 mg tablet Take 10 mg by mouth daily. Active b complex vitamins Tablet Take 1 tablet by mouth daily. Active lisinopriL (Zestril) 20 mg tablet Take 1 tablet by mouth daily. 90 tablet 3 11/07/2023 Active calciTRIoL (Rocaltrol) 0.25 mcg capsule Take 1 capsule by mouth daily. 90 capsule 3 11/07/2023 Active Active Problems Problem Noted Date Diagnosed Date Biceps tendinitis 11/19/2023 History of alcohol abuse 11/19/2023 History of partial surgical removal of colon Impingement syndrome of shoulder region 11/19/19 24 Sharma's esophagus 05/23/2023 Bursitis of left knee 12/20/2022 Overview (11/19/2023): Problem Code: M70.52; Problem Code Type: ICD-10; Acute kidney injury superimposed on chronic kidn ey disease 08/15/2022 Alcohol abuse 08/15/2022 Alcohol withdrawal syndrome 08/15/2022 Alcoholic ketoacidosis 08/15/2022 Elevated transaminase measurement 08/15/2022 History of stress test 08/15/2022 Hypokalemia 08/15/2022 Hypomagnesemia 08/15/2022 Unintended weight loss 08/15/2022 Incisional hernia, without obstruction or gangre ne 08/02/2022 Hyperparathyroidism due to renal insufficiency 0 06/15/2022 Overview (11/19/2023): Problem Code: N25.81; Problem Code Type: ICD-10; Exocrine pancreatic insufficiency 04/03/2022 Overview (11/19/2023): 04/03/2022 - Comments only - Slade Tran MD - I think Mathew's symptoms may be related to chronic pancreatitis. He is also at risk for obstruction and achalasia with his surgery history. He isn't taking creon regularly, try resuming this with each meal. If not improving, consider GI imaging, perhaps UGI/SBFT or re-consult CT surgeon that did his surgery Problem Code: K86.81; Problem Code Type: ICD-10; Anemia due to chronic kidney disease 03/13/2022 Overview (11/19/2023): 01/15/2023 - Comments only - Slade Tran MD - Discussed sources of iron, should repeat labs with renal labs. IV iron possible if we can't normalize iron stores with oral Problem Code: D63.1; Problem Code Type: ICD-10; Diverticulitis of intestine 03/13/2022 Overview (11/19/2023): Problem Code: K57.92; Problem Code Type: ICD-10; Obstructive sleep apnea syndrome 03/13/2022 Overview (11/19/2023): Problem Code: G47.33; Problem Code Type: ICD-10; Paraesophageal hernia 08/01/2021 Pancreatitis 08/09/2020 Gastroesophageal reflux 08/09/2020 Diverticulitis 08/09/2020 Alcoholism 08/09/2020 HTN (hypertension) 08/09/2020 Chronic renal disease 08/09/2020 Anemia 08/09/2020 Gout 08/09/2020 HLD (hyperlipidemia) 08/09/2020 Lumbar spondylosis 08/09/2020 Gallstone 08/09/2020 Status post total knee replacement 08/09/2020 Ruptured extensor tendon of hand or wrist 2020 Alcohol-induced chronic pancreatitis 08/09/2020 Overview (08/09/2020): Added automatically from request for surgery [id number] Screen for colon cancer 08/09/2020 Overview (08/09/2020): Added automatically from request for surgery [id number] Gastroesophageal reflux disease 08/09/2020 Overview (08/09/2020): Added automatically from request for surgery [id number] Gastroesophageal reflux disease with esophagitis 09/24/1995 Encounters Date Type Department Care Team Description 12/02/2023 Telephone [place] [phone] Nehal Ferrara 11/29/2023 Orders [place] [phone] Lawrence Gar MD Sharma's esophagus with dysplasia (Primary Dx) 11/26/2023 Orders Only Nephrology Hypertension at [place] [phone] Lizet Hayward RN CKD (chronic kidney disease) stage 4, GFR 15-29 ml/min (Primary Dx); Primary hypertension 11/26/2023 Telephone Nephrology Hypertension at [place] [phone] Lizet Hayward RN 11/19/2023 4:40 PM EDT Office Visit Gastroenterology at [place] [phone] Lawrence Gar MD Alcohol-induced chronic pancreatitis; Sharma's esophagus with dysplasia 11/19/2023 Travel 11/14/2023 Travel 11/12/2023 11:00 AM EDT - 11/12/2023 12:00 PM EDT Surgery Gastroenterology at [place] [phone] Lawrence Gar MD EGD WITH BIOPSY (WRVU 2.39) 11/12/2023 10:46 AM EDT Anesthesia Event Gastroenterology at [place] [phone] Mathew Tripathi MD 11/12/2023 9:46 AM EDT - 11/12/2023 12:10 PM EDT Hospital Encounter Gastroenterology at [place] [phone] Lawrence Gar MD Discharge Disposition: Home 11/06/2023 8:00 AM EDT Office Visit Nephrology Hypertension at [place] [phone] Jovani Richardson MD A, Nurse Clinician CKD (chronic kidney disease) stage 4, GFR 15-29 ml/min (Primary Dx); Primary hypertension; Anemia of chronic renal failure, stage 4 (severe); Hyperparathyroidism due to renal insufficiency 11/06/2023 7:20 AM EDT Laboratory Appointment Lab [address] [place] [phone] CKD (chronic kidney disease) stage 4, GFR 15-29 ml/min; Primary hypertension; Anemia of chronic renal failure, stage 4 (severe); Acidosis, metabolic 11/06/2023 Transcribe [place] [phone] Govind Mendes PA Secondary hyperparathyroidism, non-renal 11/06/2023 Travel 09/30/2023 Orders Only [place] [phone] Karol Iverson, LOYD CKD (chronic kidney disease) stage 4, GFR 15-29 ml/min 09/26/2023 Telephone [place] [phone] Karol Iverson, LOYD 09/25/2023 6:25 PM EDT Ancillary Procedure [place] [phone] Slade Tran MD 09/25/2023 External Results [place] [phone] Karol Iverson, LOYD 09/24/2023 External Results [place] [phone] Karol Iverson, RN 09/19/2023 Telephone [place] [phone] Karol Iverson, LOYD 09/19/2023 External Results [place] [phone] Karol Iverson, RN 09/18/2023 Telephone [place] [phone] Karol Iverson, RN 09/11/2023 Telephone [place] [phone] Lizet Hayward RN from Last 3 Months Immunizations Name Administration Dates Next Due Covid-19 (Pfizer), Purple Ca p Monovalent Vaccine (12yrs+) 03/13/2021,08/16/2020,07/25/2020 TD Adult 05/31/2006 Td Adult, Absorbed, Preservative Free 08/20/2016 ,05/31/2006 Tdap 08/20/2016 Zoster (Zostavax) LIVE 06/24/2018,04/15/2018 Social History Tobacco Use Types Packs/Day Years Used Date Smoking Tobacco: Never Smokeless Tobacco: Never Comments:denies vaping Alcohol Use Standard Drinks/Week Comments Not Currently 0 (1 standard drink = 0.6 oz pur e alcohol) none since 03/2020 Sex and Gender Information Value Date Recorded Sex Assigned at Not on file Gender Identity Not on file Sexual Orientation Not on file Last Filed Vital Signs Vital Sign Reading Time Taken Comments Blood Pressure 149/83 11/19/2023 4:42 PM EDT Pulse 59 11/19/2023 4:42 PM EDT Temperature 36.4 ??C (97.5 ??F) 11/12/2023 10:09 AM E DT Respiratory Rate 15 11/12/2023 11:58 AM EDT Oxygen Saturation 99% 11/19/2023 4:42 PM EDT Inhaled Oxygen Concentration - - Weight 72.8 kg (160 lb 6.4 oz) 11/19/2023 4:42 P M EDT Height 167.6 cm (5' 6) 11/19/2023 4:42 PM EDT Body Mass Index 25.89 11/19/2023 4:42 PM EDT Plan of Treatment Upcoming Encounters Date Type Department Care Team (Latest Contact Info) Description 01/02/2024 7:30 AM EDT Hospital En[place] [phone] Lawrence Gar MD [facility] [place] [address] 01/02/2024 7:30 AM EDT - 01/02/2024 8:30 AM EDT [place] [phone] Lawrence Gar MD [facility] [place] [address] EGD, UPPER GI ENDOSCOPY (WRVU 2.09) 11/17/2024 4:20 PM EDT Office [place] [phone] Lawrence Gar MD [facility] [place] [address] Scheduled Procedures Name Priority Associated Diagnoses Date/Ti me EGD, UPPER GI ENDOSCOPY (WRVU 2.09) Sharma's esophagus with dysplasia 01/02/2024 7:30 AM EDT Health Maintenance Due Date Last Done Comments CT Colonography 1955 FIT DNA 1955 FIT 1955 Sigmoidoscopy 1955 Pneumoccocal Vaccine: 65+ (1 of 2 - PCV) 1960 Hepatitis C Screening 1972 Lipid Screening 1972 Zoster vaccine (2 of 3) 08/19/2018 06/24/2018, 04/15 Covid-19 Vaccine (6 - 2022-2 4 season) 2023 03/15/2023, 04/03/2022, 03/13/2021, Additional history exists Influenza (Flu) vaccine (1 o f 1 - Influenza standard series) 01/26/2024 Tetanus vaccine 08/20/2026 08/20/2016, 07/26, 05/31/2006, Additional history exists Diabetes Screening (HgbA1C o r Glucose) 11/05/2026 11/06/2023, 09/23/2023, 09/18/2023, Additional history exists Colonoscopy 11/11/2028 11/12/2023, 10/25, 10/20/2020, Additional history exists Colorectal Cancer Screening 11/11/2028 Sigmoidoscopy (10 year) with FIT yearly 11/11/2033 11/12/2023, 11/12/2023, 10/20/2020, Additional history exists Tdap adult Completed 08/20/2016 Procedures Procedure Name Priority Date/Time Associated Diagnosis Comments SURGICAL PATHOLOGY REPORT Routine 11/12/2023 11:23 AM EDT SPECIMEN TO PATHOLOGY Routine 11/12/2023 11:23 AM EDT SPECIMEN TO PATHOLOGY Routine 11/12/2023 11:23 AM EDT Colonoscopy, Remv Lesn, Snare ([id number]) 11/12/2023 10:48 AM EDT 3 year Upper Gi Endoscopy, Biopsy ([id number]) 11/12/2023 10:48 AM EDT 3 year UPPER GI ENDOSCOPY Routine 11/12/2023 10 :28 AM EDT COLONOSCOPY Routine 11/12/2023 10:27 AM EDT HC PROTEIN, QUANTITATIVE, URINE Routine 11/06/2023 7:48 AM EDT CKD (chronic kidney disease) stage 4, GFR 15-29 ml/min GOLD TUBE HOLD Routine 11/06/2023 7:37 AM EDT DIFFERENTIAL, AUTOMATED Routine 11/06/2023 7:37 AM EDT CKD (chronic kidney disease) stage 4, GFR 15-29 ml/min HEMOGRAM Routine 11/06/2023 7:37 AM EDT CKD (chronic kidney disease) stage 4, GFR 15-29 ml/min HC PARATHYROID HORMONE(PTH INTACT Routine 11/06/2023 7:37 AM EDT CKD (chronic kidney disease) stage 4, GFR 15-29 ml/min Primary hypertension Anemia of chronic renal failure, stage 4 (severe) Acidosis, metabolic HC FERRITIN, SERUM Routine 11/06/2023 7: 37 AM EDT CKD (chronic kidney disease) stage 4, GFR 15-29 ml/min Primary hypertension Anemia of chronic renal failure, stage 4 (severe) Acidosis, metabolic HC IRON BINDING CAPACITY Routine 11/06/2023 7:37 AM EDT CKD (chronic kidney disease) stage 4, GFR 15-29 ml/min Primary hypertension Anemia of chronic renal failure, stage 4 (severe) Acidosis, metabolic HC VITAMIN D TOTAL-25 HYDROXY Routine 11/06/2023 7:37 AM EDT CKD (chronic kidney disease) stage 4, GFR 15-29 ml/min Primary hypertension Anemia of chronic renal failure, stage 4 (severe) Acidosis, metabolic HC CBC,PLT & AUTO DIFF Routine 11/06/2023 7:37 AM EDT CKD (chronic kidney disease) stage 4, GFR 15-29 ml/min BASIC METABOLIC PANEL (NON-FASTING) Routine 11/06/2023 7:37 AM EDT CKD (chronic kidney disease) stage 4, GFR 15-29 ml/min HC PHOSPHORUS, SERUM Routine 11/06/2023 7:37 AM EDT CKD (chronic kidney disease) stage 4, GFR 15-29 ml/min HC ALBUMIN, SERUM Routine 11/06/2023 7:3 7 AM EDT CKD (chronic kidney disease) stage 4, GFR 15-29 ml/min HC URIC ACID, SERUM Routine 11/06/2023 7 :37 AM EDT CKD (chronic kidney disease) stage 4, GFR 15-29 ml/min HC VENIPUNCTURE Routine 11/06/2023 7:37 AM EDT CKD (chronic kidney disease) stage 4, GFR 15-29 ml/min ULTRASOUND SCAN (SCAN) 09/26/2023 12:00 AM EDT FILM LIBRARY STORAGE ONLY ULTRASOUND STUDY Routine 09/25/2023 6:20 PM EDT LAB SCAN 09/25/2023 12:00 AM EDT PROTEIN ELECTROPHORESIS, URINE, RANDOM Routine 09/23/2023 PROTEIN ELECTROPHORESIS, SERUM Routine 09/23/2023 BASIC METABOLIC PANEL (NON-FASTING) Routine 09/23/2023 LAB SCAN 09/23/2023 12:00 AM EDT LAB SCAN 09/18/2023 12:00 AM EDT BASIC METABOLIC PANEL (NON-FASTING) Routine 09/18/2023 BASIC METABOLIC PANEL (NON-FASTING) Routine 09/11/2023 from Last 3 Months Results * (ABNORMAL) Surgical Pathology Report (11/12/2023 11:23 AM EDT) Surgical Pathology Report [id number] ? Location: 4T; EA06; A The signing pathologist has (i) examined the relevant preparation(s) for the specimen(s) and (ii) rendered or confirmed the diagnosis(es). . ?Surgical Pathology DIAGNOSIS A - Distal esophagus, biopsy (Multiple): - ??Sharma's esophagus with ??low-grade dysplasia ??and focal high-grade dysplasia . - ??Multiple levels examined. B - Sigmoid colon polyp, excision: - ??Hyperplastic polyp. - ??Multiple levels examined. CR-PX Electronically signed by: ?Amanda HENDRICKS PhD, Shyla Verified: ??11/26/2023 14:50 ??Pathologist Performed at: ??-[facility] Dept. of Pathology, [place] [address] Tabulating Machine Mechanic: Deana Lopez MD, FCAP, ??CLIA Certificate: [id number] DISCUSSION The case was reviewed at the GI pathology consensus conference. THIS RESULT REQUIRES PHYSICIAN/A.P.P. FOLLOW UP ADDITIONAL STUDIES Immunohistochemistry Studies: Formalin-fixed, paraffin-embedded tissue sections are studied using the polymer technique with appropriate positive and negative controls. ?These IHC studies provide the pathologist with adjunctive diagnostic information. Antibody specificity has been verified by testing antibodies on a series of in-house tissues with known immunohistochemical performance characteristics. The clinical interpretation of any antibody positive staining or its absence is evaluated within the context of clinical presentation, morphology, histopathological criteria and other diagnostic tests. Block ? Antibody ?Result (Positive/Negative) A1 ? p53 ?Strong, ?? diffuse positivity in ??high-grade dysplasia A2 ? p53 ?Wild-type (non-mutant) staining pattern SPECIMEN(S) SUBMITTED A - Distal esophagus, biopsy (Multiple) B - Sigmoid colon polyp, excision (1) CLINICAL INFORMATION 68-year-old male, follow-up short-segment Sharma's and colon polyps SPECIMEN PROCESSING A - Labeled/Fixative: Distal esophagus, formalin. Quantity/Size: Multiple, 0.2-0.5 cm. Tissue Description: Soft, mario-pink tissues. Sections/Processing: Submitted in toto ??in 2 cassettes labeled A1-A2. B - Labeled/Fixative: Sigmoid colon polyp, formalin. Quantity/Size: Single, 0.9 cm. . SPECIMEN PROCESSING Tissue Description: Soft, mario-pink tissue. Sections/Processing: Inked, trisected and entirely submitted in 1 cassette labeled B1. ??ajw(A) [facility] 11/12/2023 11:2 3 AM EDT Lawrence Gar MD PATHOLOGY/CYTOLOGY O RDERAXIN [facility] [place] [address] * Specimen to Pathology (11/12/2023 11:23 AM EDT) Only the most recent of2 resultswithin the time period is included. AP Specimen 11/12/2023 11:2 3 AM EDT 11/12/2023 11:23 AM EDT Narrative [facility] - 11/12/2023 11:23 AM EDT Specimen requisition ordered. ??Separate Pathology report to follow Lawrence Gar MD PATHOLOGY/CYTOLOGY O SONIYA [facility] [place] [address] * UPPER GI ENDOSCOPY (11/12/2023 10:28 AM EDT) UPPER GI ENDOSCOPY [facility] Endoscopy ___ Procedure Date: 11/12/2023 10:28 AM ? Patient Name: Mathew Mendez ? Date of : 1955 ? Age: 68 ? Order #: [id number] ? Instrument Name: [id number] ? ___ Procedure: ? Upper GI endoscopy Indications: ? Follow-up of Sharma's esophagus Providers: ? Lawrence Gar MD, Adore Wilson ? Todd Vanegas MD: ?Govind Mendes [facility]: ? Propofol per Anesthesia Complications: ? No immediate complications. ___ Procedure: ? Pre-Anesthesia Assessment: ? - Prior to the procedure, a History ? and Physical was performed, and ? patient medications, allergies and ? sensitivities were reviewed. The ? patient's tolerance of previous ? anesthesia was reviewed. ? - The risks and benefits of the ? procedure and the sedation options ? and risks were discussed with the ? patient. All questions were ? answered and informed consent was ? obtained. ? - ASA Grade Assessment: III - A ? patient with severe systemic ? disease. ? - Using IV propofol under the ? supervision of an anesthesiologist ? was determined to be medically ? necessary for this procedure based ? on age 65 or older and severe ? comorbidity (greater than ASA Grade ? II). ? The procedure, indications, ? benefits, risks and alternatives ? were explained to the patient. ? Specifically discussed were ? potential complications including, ? but not limited to, bleeding, ? perforation, infection, missing a ? cancer, and adverse medication ? reactions. The Endoscope was ? introduced through the mouth, and ? advanced to the second part of ? duodenum The patient tolerated the ? procedure well. ? Findings: ? The esophagus and gastroesophageal junction were ? examined with white light and Fanaticallilm Blue Light ? Imaging from a forward view and retroflexed position. ? There were esophageal mucosal changes suggestive of ? short-segment Sharma's esophagus. These changes ? involved the mucosa at the upper extent of the ? gastric folds (36 cm from the incisors) extending to ? the Z-line (34 cm from the incisors). No visible ? abnormalities were present. The maximum longitudinal ? extent of these esophageal mucosal changes was 2 cm ? in length (C0M2). There was no visualized ? inflammation. Mucosa was biopsied with a cold forceps ? for histology. One specimen bottle was sent to ? pathology. ? Evidence of a prior Mihir fundoplication was found ? in the cardia. This was characterized by healthy ? appearing mucosa. ? Mild antral gastritis. ? Otherwise normal stomach including retroflex view of ? cardia and fundus. ? The examined duodenum was normal. ? Moderate Sedation: ? Not applicable - See Anesthesia documentation Impression: ?- Esophageal mucosal changes ? suggestive of short-segment ? Sharma's esophagus. Biopsied. ? - A Mihir fundoplication was ? found, characterized by healthy ? appearing mucosa. ? - Mild antral gastritis. ? - Normal examined duodenum. Recommendation: ?- Observe patient's clinical course. ? - Await pathology results. ? - Repeat upper endoscopy in 3 years ? for surveillance based on pathology ? results. ? Attending Participation: ? I personally performed the entire procedure. ? Lawrence Gar MD 11/12/2023 11:06:44 AM This report has been signed electronically. Number of Addenda: 0 Note Initiated On: 11/12/2023 10:28 AM PROVATION 11/12/2023 10:2 8 AM EDT Govind ROBERTS GENERAL SURGICAL ORDERABLES PROVATION * COLONOSCOPY (11/12/2023 10:27 AM EDT) COLONOSCOPY [facility] Endoscopy ___ Procedure Date: 11/12/2023 10:27 AM ? Patient Name: Mathew Mendez ? Date of : 1955 ? Age: 68 ? Order #: [id number] ? Instrument Name: [id number] ? ___ Procedure: ? Colonoscopy Indications: ? High risk colon cancer ? surveillance: Personal history of ? colonic polyps Providers: ? Lawrence Gar MD, Adore Wilson ? Todd Vanegas MD: ?Slade Haddad: ? Propofol per Anesthesia Complications: ? No immediate complications. ___ Procedure: ? Pre-Anesthesia Assessment: ? - Prior to the procedure, a History ? and Physical was performed, and ? patient medications, allergies and ? sensitivities were reviewed. The ? patient's tolerance of previous ? anesthesia was reviewed. ? - The risks and benefits of the ? procedure and the sedation options ? and risks were discussed with the ? patient. All questions were ? answered and informed consent was ? obtained. ? - ASA Grade Assessment: III - A ? patient with severe systemic ? disease. ? - Using IV propofol under the ? supervision of an anesthesiologist ? was determined to be medically ? necessary for this procedure based ? on age 65 or older and severe ? comorbidity (greater than ASA Grade ? II). ? The procedure, indications, ? benefits, risks and alternatives ? were explained to the patient. ? Specifically discussed were ? potential complications including, ? but not limited to, bleeding, ? perforation, infection, missing a ? cancer, and adverse medication ? reactions. The patient was placed ? in the left lateral decubitus ? position, and a digital rectal exam ? was performed. The Colonoscope was ? inserted in the anus and under ? direct visualization, advanced to ? the terminal ileum. Careful ? inspection was made as the ? colonoscope was withdrawn. The ? patient tolerated the procedure ? well. The quality of the bowel ? preparation was excellent. The ? quality of the bowel preparation ? was evaluated using the BBPS ? ([place] Bowel Preparation Scale) ? with scores of: Right Colon = 3, ? Transverse Colon = 3 and Left Colon ? = 3 (entire mucosa seen well with ? no residual staining, small ? fragments of stool or opaque ? liquid). The total BBPS score ? equals 9. The total duration of the ? procedure was 20 minutes. ? Findings: ? The perianal and digital rectal examinations were ? normal. ? The terminal ileum appeared normal. ? Protuberant appendiceal orifice with normal mucosal ? pattern without evidence for mucosal polyp or ? discharge. ? A few small-mouthed diverticula were found in the ? sigmoid colon. ? A 5 mm polyp was found in the sigmoid colon. The ? polyp was sessile. The polyp was removed with a cold ? snare. Resection and retrieval were complete. ? There was evidence of a prior end-to-side colo-rectal ? anastomosis in the proximal rectum. This was patent ? and was characterized by healthy appearing mucosa. ? The anastomosis was traversed. ? The retroflexed view of the distal rectum and anal ? verge was normal and showed no anal or rectal ? abnormalities. ? The exam was otherwise without abnormality. ? Moderate Sedation: ? Not applicable - See Anesthesia documentation Impression: ?- The examined portion of the ileum ? was normal. ? - Benign appearing protuberant ? appendiceal orifice. ? - Diverticulosis in the sigmoid ? colon. ? - One 5 mm polyp in the sigmoid ? colon, removed with a cold snare. ? Resected and retrieved. ? - Patent end-to-side colo-rectal ? anastomosis, characterized by ? healthy appearing mucosa. ? - The distal rectum and anal verge ? are normal on retroflexion view. ? - The examination was otherwise ? normal. Recommendation: ?- Await pathology results. ? - Repeat colonoscopy in 5 years for ? surveillance based on pathology ? results. ? Attending Participation: ? I personally performed the entire procedure. ? Lawrence Gar MD 11/12/2023 11:34:22 AM This report has been signed electronically. Number of Addenda: 0 Note Initiated On: 11/12/2023 10:27 AM PROVATION 11/12/2023 10:2 7 AM EDT Slade Tran MD GENERAL SURGICAL ORD ERABLES Performing Organization Address City/[facility]/ZIP Co de Phone Number PROVATION * (ABNORMAL) Protein/Creatinine Ratio, urine (11/06/2023 7:48 AM EDT) U Creatinine 69 mg/dL [facility] U Protein Ran 179(H) 0 - 12 mg/dL [facility] Prot/Cre Ratio 2.6 ratio [facility] Urine 11/06/2023 7:48 AM EDT 11/06/2023 7:58 AM EDT Narrative Resulting Agency Comment Spec In Lab Jovani Richarsdon MD URINE ORDERABLES Performing Organization Address [facility] Co de Phone Number [facility] [place] [address] * (ABNORMAL) PTH (11/06/2023 7:37 AM EDT) Only the most recent of2 resultswithin the time period is included. PTH 113(H) 15 - 65 pg/mL [facility] Blood 11/06/2023 7:37 AM EDT 11/06/2023 7:49 AM EDT Narrative Resulting Agency Comment Spec In Lab Jovani Richardson MD CHEMISTRY ORDERABLES Performing Organization Address [facility] Co de Phone Number [facility] [place] [address] * (ABNORMAL) Hemogram (11/06/2023 7:37 AM EDT) WBC 5.2 4.0 - 9.5 x10(3)/[facility] LABORATORY RBC 3.49(L) 4.58 - 5.54 x10(6)/[facility] LABORATORY Hemoglobin 10.7(L) 13.7 - 16.5 g/dL [facility] Hematocrit 33.2(L) 40.5 - 48.5 % [facility] MCV 95.1(H) 82.9 - 93.1 [facility] LABORATORY MCH 30.7 27.5 - 32.1 pg [facility] MCHC 32.2 32.0 - 35.7 g/dL [facility] Platelets 175 145 - 357 x10(3)/[facility] RDWSD 44.9 36.0 - 45.0 [facility] RDWCV 12.8 11.4 - 13.8 % [facility] MPV 10.8 7.6 - 12.9 [facility] LABORATORY nRBC % Auto 0.0 % [facility] nRBC Abs Auto 0.000 0.000 - 0.000 x10(3)/[facility] LABORATORY Blood 11/06/2023 7:37 AM EDT 11/06/2023 7:49 AM EDT Narrative Resulting Agency Comment Spec In Lab Jovani Richardson MD HEMATOLOGY ORDERABLE S [facility] [place] [address] * Differential, Automated (11/06/2023 7:37 AM EDT) Neutrophils % 62.9 % [facility] Neutr Abs (ANC) 3.24 1.70 - 6.10 x10(3)/[facility] Lymphocytes % 17.5 % [facility] Lymphocytes Abs 0.9 0.9 - 3.2 x10(3)/[facility] Monocytes % 11.8 % [facility] Monocyte Abs 0.6 0.3 - 0.9 x10(3)/[facility] Eosinophils % 6.2 % [facility] Eosinophils Abs 0.3 0.0 - 0.4 x10(3)/[facility] Basophils % 1.4 % [facility] Basophils Abs 0.1 0.0 - 0.1 x10(3)/[facility]ORY Immature Gran % 0.20 % [facility] Comment: Immature granulocytes(IG's)percentage and absolute count will include metamyelocytes, myelocytes, and promyelocytes. Blood smears from CBCs yielding IG's will be scanned manually for concordance. If this scan disagrees with the automated IG or if promyelocytes are noted, a manual differential will be performed. Raya Gran Abs 0.01 0.00 - 0.04 x10(3)/[facility] Blood 11/06/2023 7:37 AM EDT 11/06/2023 7:49 AM EDT Narrative Resulting Agency Comment Spec In Lab Jovani Richardson MD HEMATOLOGY ORDERABLE S [facility] [place] [address] * Gold Tube HOLD (11/06/2023 7:37 AM EDT) Gold Hold Sample in lab. [facility] Blood No Charge / Unknown 11/06/2023 7:37 AM EDT 11/06/2023 7:49 AM EDT Jovani Richardson MD CHEMISTRY ORDERABLES [facility] [place] [address] * Iron and TIBC (11/06/2023 7:37 AM EDT) Iron 80 45 - 160 mcg/dL [facility] TIBC 266 250 - 450 mcg/dL [facility] Iron Saturation 30 20 - 50 % [facility] Blood 11/06/2023 7:37 AM EDT 11/06/2023 7:49 AM EDT Narrative Resulting Agency Comment Spec In Lab Jovani Richardson MD CHEMISTRY ORDERABLES Performing Organization Address City/[facility]/ZIP Co de Phone Number [facility] [place] [address] * (ABNORMAL) Vitamin D, 25-Hydroxy (11/06/2023 7:37 AM EDT) 25-OH Vit D Total 20(L) 21 - 100 ng/mL [facility] 25-OH Vit D Interp Deficient [facility] Blood 11/06/2023 7:37 AM EDT 11/06/2023 7:49 AM EDT Narrative Resulting Agency Comment Spec In Lab Jovani Richardson MD CHEMISTRY ORDERABLES Performing Organization Address City/[facility]/ZIP Co de Phone Number [facility] [place] [address] * Uric acid (11/06/2023 7:37 AM EDT) Uric Acid 7.4 3.5 - 8.5 mg/dL [facility] Blood 11/06/2023 7:37 AM EDT 11/06/2023 7:49 AM EDT Narrative Resulting Agency Comment Spec In Lab Jovani Richardson MD CHEMISTRY ORDERABLES Performing Organization Address City/[facility]/ZIP Co de Phone Number [facility] [place] [address] * (ABNORMAL) Phosphorus (11/06/2023 7:37 AM EDT) Phosphorus 4.7(H) 2.5 - 4.5 mg/dL [facility] Blood 11/06/2023 7:37 AM EDT 11/06/2023 7:49 AM EDT Narrative Resulting Agency Comment Spec In Lab Jovani Richardson MD CHEMISTRY ORDERABLES Performing Organization Address [facility] Co de Phone Number [facility] [place] [address] * Ferritin (11/06/2023 7:37 AM EDT) Ferritin 97 31 - 409 ng/mL [facility] Comment: Please note that as of 05/01/2023, the reference intervals for Ferritin have been updated. Blood 11/06/2023 7:37 AM EDT 11/06/2023 7:49 AM EDT Narrative Resulting Agency Comment Spec In Lab Jovani Richardson MD CHEMISTRY ORDERABLES Performing Organization Address [facility] Co de Phone Number [facility] [place] [address] * Albumin Level (11/06/2023 7:37 AM EDT) Pathologist [facility] Albumin 4.1 3.2 - 5.2 g/dL [facility] Blood 11/06/2023 7:37 AM EDT 11/06/2023 7:49 AM EDT Narrative Resulting Agency Comment Spec In Lab Jovani Richardson MD CHEMISTRY ORDERABLES Performing Organization Address [facility] Co de Phone Number [facility] [place] [address] * (ABNORMAL) Basic Metabolic Panel (non-fasting) (11/06/2023 7:37 AM EDT) Only the most recent of4 resultswithin the time period is included. Glucose Lvl 93 65 - 199 mg/dL [facility] Comment:Diabetes: >=200 mg/d L plus symptoms BUN 56(H) 10 - 20 mg/dL [facility] Creatinine 3.08(H) 0.80 - 1.50 mg/dL [facility] Sodium 142 135 - 145 mmol/L [facility] Potassium 5.2(H) 3.5 - 5.0 mmol/L [facility] Comment: Please note: ??Patients with WBC >100,000 may have falsely elevated Potassium levels. ??For accurate Potassium quantification in these patients send serum separator tube (gold top) for subsequent determinations. ??Contact the Clinical Chemistry Laboratory if there are any questions. Chloride 108(H) 98 - 107 mmol/L [facility] CO2 21(L) 22 - 31 mmol/L [facility] Anion Gap 13 5 - 15 mmol/L [facility] Calcium 9.0 8.5 - 10.5 mg/dL [facility] Estimated GFR 21(L) >=60 mL/min/1. 73 m?? [facility] Comment: This patient's estimated GFR was calculated using the 2020 CKD-EPI equation. The estimated GFR can vary from the measured GFR by up to 30% in the absence of rapidly changing kidney function. Assessment of the estimated GFR is not appropriate when creatinine concentrations are rapidly changing. For clinical situations in which a more precise estimate of GFR is necessary, consider alternative methods of GFR estimation such as a 24-hour urine creatinine clearance. Assignment of CKD stage 1-5 for patients with an eGFR near the transition point between stages may be based on clinical assessment of muscle mass and symptoms in addition to eGFR. Blood 11/06/2023 7:37 AM EDT 11/06/2023 7:49 AM EDT Narrative Resulting Agency Comment Spec In Lab Jovani Richardson MD CHEMISTRY ORDERABLES [facility] [place] [address] * SCAN DOC: ULTRASOUND (09/26/2023 12:00 AM EDT) Anatomical Region Laterality Modality Other Narrative 09/26/2023 12:00 AM EDT Ordered by an unspecified provider. Scanning Provider MEDIA MGR SCAN EXT O RDR/RSLT * Film Library- Storage Only Ultrasound Study (09/25/2023 6:20 PM EDT) Narrative BENNY NUNEZ - 09/25/2023 6:20 PM EDT This exam is auto-finalizing. It's purpose is for storage only. Slade Tran MD IMG FILM LIBRARY ORD ERABLES [facility] [place] * SCAN DOC: LAB (09/25/2023 12:00 AM EDT) Only the most recent of3 resultswithin the time period is included. Narrative 09/25/2023 12:00 AM EDT Ordered by an unspecified provider. Scanning Provider MEDIA MGR SCAN EXT O RDR/RSLT * Protein Electrophoresis, urine, random (09/23/2023) U Protein Ran 276 U Alb Conc, Random 69.2 U Albumin 191 U Globulin 85 U PEP Comments negative forfree light chains Urine 09/23/2023 Historical Provider URINE ORDERABLES * Protein Electrophoresis, serum (09/23/2023) Total Prot Elec 6.6 Albumin Elect 61.9 Alpha1-Globul in 4.5 Alpha2-Globul in 12.3 Beta Globulin 10.3 SPEP Comments No apparent monoclonal protein seen on serum electrophoresis IgG 671 IgA 144 IgM 120 Blood 09/23/2023 Historical Provider CHEMISTRY ORDERAB LES from Last 3 Months Advance Directives Documents on File Type Date Recorded Patient Inspector Insulation Expl gilsonion Advance Directives and Livjhon g Will 07/26/2010 8:58 AM Care Teams Lumber Inspector Relationship Specialty Start Date End Date Govind Mendes PA [facility] [place] [address] PCP - General Internal Medicine 11/06/23
--- OUTSIDE RECORDS SUMMARY | 2023-12-10 04:58 | XMS_ITS | Encounter Summary ---
[place] [address] Care Team Providers Care Senior Clinical Study Manager Name Role Phone Govind Mendes Primary Care Provider + Encounter Details Date Type Department Care Team (Late st Contact Info) Description 11/26/2023 Telephone [place] [address] Lizet Hayward RN Social History Tobacco Use Types Packs/Day Years [...] on file documented as of this encounter Miscellaneous Notes * Telephone Encounter - Lizet Hayward RN - 11/26/2023 2:49 PM EDT S/O: Patient called RN earlier in the day to check on his lab results from his clinic appointment last month. He also wanted to let Dr. Richardson know that his blood pressures have been more elevated since his appointment. He has had some testing done as well. His recent blood pressures include 154/82 and 144/80. RN spoke to patient and went over his labs. He is thinking about getting another blood pressure cuff because he can't find the one he has since he moved. RN reiterated the importance of accurate, home blood pressure readings, as they tend to be higher at the MD office. RN also spoke with Dr. Richardson. He would like Mathew to get some home readings for us to review, as well as another BMP in a few weeks to make sure his potassium hasn't gotten more elevated now that hisdose of Lisinopril has been increased. He does not want to change any of Mathew's medications at thistime. P: RN left for patient with this information and encouraged him to call with any questions. documented in this encounter Plan of Treatment Upcoming Encounters Date Type Department Care Team (Latest Contact Info) Description 01/02/2024 7:30 AM EDT Hospital En[place] [address] Lawrence Gar MD [facility] [address] [place] [address] 01/02/2024 7:30 AM EDT - 01/02/2024 8:30 AM EDT [place] [address] Lawrence Gar MD [facility] [address] [place] [address] EGD, UPPER GI ENDOSCOPY (WRVU 2.09) 11/17/2024 4:20 PM EDT Office [place] [address] Lawrence Gar MD [facility] [address] [place] [address] Scheduled Procedures Name Priority Associated Diagnoses Date/Ti me EGD, UPPER GI ENDOSCOPY (WRVU 2.09) Sharma's esophagus with dysplasia 01/02/2024 7:30 AM EDT documented as of this encounter Visit Diagnoses Not on filedocumented in this encounter Care Teams Senior Clinical Study Manager Relationship Specialty Start Date End Date Govind Mendes PA [address] [place] [address] PCP - General Internal Medicine 11/06/23 documented as of this encounter
--- OUTSIDE RECORDS SUMMARY | 2023-12-10 04:58 | XMS_ITS | Encounter Summary ---
Author Organization [facility] Address [facility] [place] [address] Care Team Providers Care Fur Puller Name Role Phone Govind Mendes Primary Care Provider + Encounter Details Date Type Department Care Team (Latest Contact Info) Description 11/06/2023 8:00 AM EDT Office Visit [place] [address] Jovani Richardson MD [facility] [place] [address] A, Nurse Clinician None CKD (chronic kidney disease) stage 4, GFR 15-29 ml/min (Primary Dx); Primary hypertension; Anemia of chronic renal failure, stage 4 (severe); Hyperparathyroidism due to renal insufficiency Social History Tobacco Use Types Packs/Day Years [...] Sign Reading Time Taken Comments Blood Pressure 141/87 11/06/2023 8:19 AM EDT Pulse 74 11/06/2023 8:19 AM EDT Temperature - - Respiratory Rate - - Oxygen Saturation - - Inhaled Oxygen Concentration - - Weight 74.4 kg (164 lb 1.6 oz) 11/06/2023 8:19 A M EDT Height - - Body Mass Index 26.49 08/30/2023 11:20 AM EDT documented in this encounter Patient Instructions * Patient Instructions* Lizet Hayward, RN - 11/06/2023 8:00 AM EDT Most of your labs have not come back yet. We will review them when they do come in and let you knowif we need to make any adjustments. Your kidney function did go down a little bit after starting the Jardiance but this is expected. There will be a dip in the beginning and then it will stabilize, which is what we have seen so far with you. Assuming that is still the case, we will stick with the Ja rdiance. If there is a continued decline in your kidney function, Dr. Richardson would look at the Jardiance again or look for another cause of the decline. He has not done a kidney biopsy at this point but may consider it. He doesn't think you will need one but it is an option. Dr. Richardson would like to increase your Lisinopril a little bit because your blood pressure is a little higher than he'd like to see and you have a good amount of protein in your urine. We will recheck your potassium level in a week or two to make sure the Lisinopril is not increasing the potassium level. He would like you to increase your Lisinopril to 20mg once a day. If you feel lightheaded or dizzy at home, check your home b/p and let us know. It may be too high of a dose. Kidney disease makes it harder for your body to absorb iron. We did draw tests for your iron levelsand when they come back we'll let you know how they are. It you take too much iron it can damage your liver, but it is unlikely in your case. Your hemoglobin is in range for a patient with chronic kidney disease; our goal is between 10 and 11. You are considered to be anemic but not at a level where we would intervene. If your hemoglobin drops below 10, then we could provide an injection of a synthetic erythropoietin, which is the hormone that signals to your body to make more red blood cells. Call if you feel differently (consistent symptoms of nausea, vomiting, little appeal for food, itching, change in sleep patterns, worsening energy levels, shortness of breath). These are some of the signs of worsening kidney function. We will see you sooner if you are not feeling well. Please call. Lizet Hayward MBA, field marketing manager Kidney Disease Nurse Clinician [facility] Nephrology documented in this encounter Progress Notes * Lizet Hayward RN - 11/06/2023 8:[address] [facility] [address] [place] [address] Reason for Clinic Visit: Systems Review and CKD management. Seen in clinic with: Lizet Hayward RN CKD Nurse Clinician CKD related to: hypertension History of Present Illness: Having abdominal issues since a hiatal hernia repair, awaiting EGD/colo. History obtained by RN Specialist: Last seen in clinic 08/30/23 eGFR 20. This is his first time meeting with the CKD Nurse Clinician. Patient is having an upper EGD and colonoscopy next week to see what is going on with his digestive system because he has been having a lot of bowel issues since he had a hiatal hernia repair a couple of years ago. He broke his finger about a month ago and was put oncephalexin. Patient present for visit with his , Yen. Review of Systems: Sign/Symptom Comments Activity level/fatigue: He is very busy. 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 He does feel like the work is catching up with him a little. He does get tired and doesn't feel well r/t bowel issues from hiatal hernia surgery. Change in sleep patterns: Sleep isn't too bad, he has some good nights and bad nights r/t cramping in legs. Has had to take a nap in the middle of the day occasionally. Nocturia: 1x, sometimes a second time. Mostly feels like his bladder empties. First urine in the morning may be a double void. Appetite changes: He eats well when he is feeling well. He avoids overeating. He has normal sized portions. Food aversions: No Nausea: No Vomiting: No Bowels: Has bowel urgency and diarrhea r/t hiatal hernia surgery. Edema: Trace to 1+. Will have swelling at the end of the work day. He has had this for a while. States it used to be worse in the past. Shortness of breath: Not really, only if he isn't feeling well. Orthopnea/PND: No PND; 1 pillow Muscle Cramping: Has a lot of cramping in his legs, especially at night. Cold intolerance: Yes Itching: Has had a lot of itching lately - there was a thought of it being from an antibiotic but it is still present now that he has stopped taking it. Bruising/bleeding: No bruising or bleeding issues Mental Status Changes: Not that he is aware. He makes lists to keep track of everything he needs todo. Recent Home Blood Pressure Control: Doesn't check. He has a machine but he got sick of it because it wasn't consistent. Generally 120s systolic at MD office. 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 ALLERGIES: Allergies Allergen Reactions Morphine Hives MEDICATIONS: Current Outpatient Medications Medication Sig Dispense Refill empagliflozin (Jardiance) 10 mg tablet Take 10 mg by mouth daily. b complex vitamins Tablet Take 1 tablet by mouth daily. ferrous gluconate (Ferate) 324 mg (37.5 mg iron) tablet Take 324 mg by mouth every other day. metoprolol succinate XL (Toprol-XL) 50 mg ER 24 hr tablet Take 50 mg by mouth daily. calciTRIoL (Rocaltrol) 0.25 mcg capsule Take 0.25 mcg by mouth daily. amLODIPine (Norvasc) 5 mg [...] 45 g 3 No current facility-administered medications for this visit. PHYSICAL EXAM: Vitals: 11/06/23 0819 BP: 141/87 BP Location (NB): Left arm Patient Position: Sitting BP Cuff Sizes: Adult (25-34 cm) Pulse: 74 Weight: 74.4 kg (164 lb 1.6 oz) Body mass index is 26.49 kg/m??. General appearance NAD Head Eyes ENT Neck Respiratory CTA COR/Vascular reg Abdomen Skin Neuro Asterixis Extremities No edema Other LABS: Recent Results (from the past 336 hour(s)) PTH Collection Time: 11/06/23 7:37 AM Result Value Ref Range PTH 113 (H) 15 - 65 pg/mL Uric acid Collection Time: 11/06/23 7:37 AM Result Value Ref Range Uric Acid 7.4 3.5 - 8.5 mg/dL Albumin Level Collection Time: 11/06/23 7:37 AM Result Value Ref Range Albumin 4.1 3.2 - 5.2 g/dL Phosphorus Collection Time: 11/06/23 7:37 AM Result Value Ref Range Phosphorus 4.7 (H) 2.5 - 4.5 mg/dL Basic Metabolic Panel (non-fasting) Collection Time: 11/06/23 7:37 AM Result Value Ref Range Glucose Lvl 93 65 - 199 mg/dL BUN 56 (H) 10 - 20 mg/dL Creatinine 3.08 (H) 0.80 - 1.50 mg/dL Sodium 142 135 - 145 mmol/L Potassium 5.2 (H) 3.5 - 5.0 mmol/L Chloride 108 (H) 98 - 107 mmol/L CO2 21 (L) 22 - 31 mmol/L Anion Gap 13 5 - 15 mmol/L Calcium 9.0 8.5 - 10.5 mg/dL Estimated GFR 21 (L) >=60 mL/min/1.73 m?? Vitamin D, 25-Hydroxy Collection Time: 11/06/23 7:37 AM Result Value Ref Range 25-OH Vit D Total 20 (L) 21 - 100 ng/mL 25-OH Vit D Interp Deficient Iron and TIBC Collection Time: 11/06/23 7:37 AM Result Value Ref Range Iron 80 45 - 160 mcg/dL TIBC 266 250 - 450 mcg/dL Iron Saturation 30 20 - 50 % Ferritin Collection Time: 11/06/23 7:37 AM Result Value Ref Range Ferritin 97 31 - 409 ng/mL PTH Collection Time: 11/06/23 7:37 AM Result Value Ref Range PTH 113 (H) 15 - 65 pg/mL Hemogram Collection Time: 11/06/23 7:37 AM Result Value Ref Range WBC 5.2 4.0 - 9.5 x10(3)/mcL RBC 3.49 (L) 4.58 - 5.54 x10(6)/mcL Hemoglobin 10.7 (L) 13.7 - 16.5 g/dL Hematocrit 33.2 (L) 40.5 - 48.5 % MCV 95.1 (H) 82.9 - 93.1 fL MCH 30.7 27.5 - 32.1 pg MCHC 32.2 32.0 - 35.7 g/dL Platelets 175 145 - 357 x10(3)/mcL RDWSD 44.9 36.0 - 45.0 fL RDWCV 12.8 11.4 - 13.8 % MPV 10.8 7.6 - 12.9 fL nRBC % Auto 0.0 % nRBC Abs Auto 0.000 0.000 - 0.000 x10(3)/mcL Differential, Automated Collection Time: 11/06/23 7:37 AM Result Value Ref Range Neutrophils % 62.9 % Neutr Abs (ANC) 3.24 1.70 - 6.10 x10(3)/mcL Lymphocytes % 17.5 % Lymphocytes Abs 0.9 0.9 - 3.2 x10(3)/mcL Monocytes % 11.8 % Monocyte Abs 0.6 0.3 - 0.9 x10(3)/mcL Eosinophils % 6.2 % Eosinophils Abs 0.3 0.0 - 0.4 x10(3)/mcL Basophils % 1.4 % Basophils Abs 0.1 0.0 - 0.1 x10(3)/mcL Immature Gran % 0.20 % Raya Gran Abs 0.01 0.00 - 0.04 x10(3)/mcL Gold Tube HOLD Collection Time: 11/06/23 7:37 AM Result Value Ref Range Gold Hold Sample in lab. Protein/Creatinine Ratio, urine Collection Time: 11/06/23 7:48 AM Result Value Ref Range U Creatinine 69 mg/dL U Protein Ran 179 (H) 0 - 12 mg/dL Prot/Cre Ratio 2.6 ratio ASSESSMENT AND PLAN: Problem: Chronic Kidney Disease Estimated GFR Date Value 11/06/2023 21 mL/min/1.73 m?? (L) 09/23/2023 18.12 09/18/2023 15.9 CKD Stage 4 Potassium Date Value Ref Range Status 11/06/2023 5.2 (H) 3.5 - 5.0 mmol/L Final Comment: Please note: Patients with WBC >100,000 may have falsely elevated Potassium levels. For accurate Potassium quantification in these patients send serum separator tube (gold top) for subsequent determinations. Contact the Clinical Chemistry Laboratory if there are any questions. 09/23/2023 4.8 Final 09/18/2023 4.9 Final CO2 Date Value 11/06/2023 21 mmol/L (L) 09/23/2023 23 09/18/2023 14 On 1 tsp sodium bicarb daily Uric Acid (mg/dL) Date Value 11/06/2023 7.4 08/30/2023 8.2 Not on allopurinol Standard Recommendations: Reduce rate of progression. Education for CKD stage- specific issues. RN Notes: Most of your labs have not come back yet. We will review them when they do come in and let you know if we need to make any adjustments. Your kidney function did go down a little bit after starting the Jardiance but this is expected. There will be a dip in the beginning and then it will stabilize, which is what we have seen so far with you. Assuming that is still the case, we will stick with the Jardiance. If there is a continued decline in your kidney function, Dr. Richardson would look at the Jardiance again or look for another cause of the decline. He has not done a kidney biopsy at this point but may consider it. He doesn't think you will need one but it is an option. MD/CORPORATE INVESTIGATOR A/P: Cr stable. Risk factor modification as below. Problem: Management of Anemia related to Chronic Kidney Disease (CKD) Hemoglobin (g/dL) Date Value 11/06/2023 10.7 (L) Goal: 9.5-10.9 g/dl Ferritin (ng/mL) Date Value 11/06/2023 97 Goal: >100ng/ml Iron Saturation (%) Date Value 11/06/2023 30 Goal: >20% YISSEL: No; start date: ; last dose: Drug/Dose/Frequency: Aranesp monthly Where administered (clinic/hospital/home): IV Iron replacement therapy (Venofer), Last dose: RN Notes: Kidney disease makes it harder for your body to absorb iron. We did draw tests for your iron levels and when they come back we'll let you know how they are. It you take too much iron it candamage your liver, but it is unlikely in your case. Your hemoglobin is in range for a patient with chronic kidney disease; our goal is between 10 and 11. You are considered to be anemic but not at a level where we would intervene. If your hemoglobin drops below 10, then we could provide an injection of a synthetic erythropoietin, which is the hormone that signals to your body to make more red blood cells. MD/CORPORATE INVESTIGATOR A/P: will start aranesp when hgb falls below 10 Problem: Hypertension BP: (141)/(87) Goal (if urine alb:cr ratio is <30mg/g): </= 140/90 Goal (if urine alb:cr ratio is >30mg/g): </= 130/80 Standard Recommendations: Sodium intake < 2 Gm per day. RN Notes: Dr. Richardson would like to increase your Lisinopril a little bit because your blood pressure is a little higher than he'd like to see and you have a good amount of protein in your urine. We will recheck your potassium level in a week or two to make sure the Lisinopril is not increasing the potassium level. He would like you to increase your Lisinopril to 20mg once a day. If you feel lightheaded or dizzy at home, check your home b/p and let us know. It may be too high of a dose. MD/CORPORATE INVESTIGATOR A/P: increase lisinopril to 20mg daily Problem: Proteinuria Prot/Cre Ratio (ratio) Date Value 11/06/2023 2.6 Goal: <0.2mg/mg RN Notes: Increase Lisinopril to 20mg daily MD/CORPORATE INVESTIGATOR A/P: increase lisinopril, continue SGLT-2i Problem: Bone and mineral metabolism 25-OH Vit D Total (ng/mL) Date Value 11/06/2023 20 (L) 08/30/2023 21 Not on vitamin D PTH (pg/mL) Date Value 11/06/2023 113 (H) 11/06/2023 113 (H) 08/30/2023 145 (H) On calcitriol 0.25 mcg daily Goal: Stage 3: 35-70 pg/ml Stage 4: 70-110 pg/ml Stage 5: 150-300 pg/ml Phosphorus (mg/dL) Date Value 11/06/2023 4.7 (H) 08/30/2023 3.8 01/21/2023 3.5 not on sevelamer/calcium carbonate (Tums)/calcium acetate Goal: 2.7-4.6mg/dl Calcium Date Value 11/06/2023 9.0 mg/dL 09/23/2023 7.9 09/18/2023 8.5 not on calcium carbonate Goal: 8.5-10.5mg/dl RN Notes: No changes MD/CORPORATE INVESTIGATOR A/P: continue calcitriol Problem: Nutrition Albumin (g/dL) Date Value 11/06/2023 4.1 08/30/2023 4.4 01/21/2023 4.3 Goal: >/= 4.0 gm/dl Body mass index is 26.49 kg/m??. Goal: 20-25 kg/m2 RN Notes: Encouraged healthy eating MD/CORPORATE INVESTIGATOR A/P: Problem: Dyslipidemia No results found for: LDLCHOL Goal: <100 mg/dl No results found for: TRIG Goal: <150 mg/dl not on statin not on ezetimibe RN Notes: No changes MD/CORPORATE INVESTIGATOR A/P: defer lipid management to PCP Return to CKD clinic: 3 months documented in this encounter Plan of Treatment Upcoming Encounters Date Type Department Care Team (Latest Contact Info) Description 01/02/2024 7:30 AM EDT Hospital En[place] [address] Lawrence Gar MD [facility] DR [place] [address] 01/02/2024 7:30 AM EDT - 01/02/2024 8:30 AM EDT [place] [address] Lawrence Gar MD [facility] DR [place] [address] EGD, UPPER GI ENDOSCOPY (WRVU 2.09) 11/17/2024 4:20 PM EDT Office [place] [address] Lawrence Gar MD [facility] DR [place] [address] Scheduled Orders Name Type Priority Associated Diagnoses Orde r Schedule Basic Metabolic Panel (non-fasting) Lab Routine CKD (chronic kidney disease) stage 4, GFR 15-29 ml/min Primary hypertension Anemia of chronic renal failure, stage 4 (severe) Hyperparathyroidism due to renal insufficiency Expected: 11/13/2023 (Approximate), Expires: 11/05/2024 Scheduled Procedures Name Priority Associated Diagnoses Date/Ti me EGD, UPPER GI ENDOSCOPY (WRVU 2.09) Sharma's esophagus with dysplasia 01/02/2024 7:30 AM EDT documented as of this encounter Visit Diagnoses Diagnosis CKD (chronic kidney disease) stage 4, GFR 15-29 ml/min- Primary Chronic kidney disease, Stage IV (severe) Primary hypertension Unspecified essential hypertension Anemia of chronic renal failure, stage 4 (severe) Hyperparathyroidism due to renal insufficiency Secondary hyperparathyroidism (of renal origin) Sharma's esophagus with dysplasia Sharma's esophagus documented in this encounter Care Teams Fur Puller Relationship Specialty Start Date End Date Govind Mendes [place] [address] [place] [address] PCP - General Internal Medicine 11/06/23 documented as of this encounter
--- OUTSIDE RECORDS SUMMARY | 2023-12-10 04:58 | XMS_ITS | Encounter Summary ---
Author Organization [facility] Address [address] [place] [address] Care Team Providers Care Sap Business Objects Consultant Name Role Phone Jovani Wharton DO Primary Care Provider [phone] Jorge Chauhan MD Primary Care Provider Luis Lauren MD Primary Care Provider [phone] Slade Tran MD Primary Care Provider [phone] Reason for Visit * Reason Onset Date Comments Appointment Related 06/02/2021 Encounter Details Date Type Department Care Team (Late st Contact Info) Description 06/02/2021 Telephone [facility] Nephrology - [address] [address] Unknown, Provider, Appointment Related Social History Tobacco Use Types Packs/Day Years [...] encounter Miscellaneous Notes * Telephone Encounter - Noel Vasquez - 06/02/2021 1253 EST LMOM looking to schedule NPV appt. Please assign to referral. documented in this encounter Plan of Treatment Not on file documented as of this encounter Visit Diagnoses Not on filedocumented in this encounter Care Teams Sap Business Objects Consultant Relationship Specialty Start Date End Date Jovani Wharton DO [address] [place], [place] [phone] PCP - General 10/11/16 10/17/21 Jorge Chauhan MD [address] [place], [place] [id number] PCP - General Family Medicine - Primary Care 10/18/21 11/22/21 Luis Lauren MD [address] [place], [place] [id number] PCP - General Family Medicine - Primary Care 11/23/21 11/11/22 Slade Tran MD [facility] [place] [address] PCP - General 11/12/22 documented as of this encounter
--- OUTSIDE RECORDS SUMMARY | 2023-12-10 04:58 | XMS_ITS | Encounter Summary ---
Author Organization [facility] [place] [address] Care Team Providers Care Sales And Marketing Administrator Name Role Phone Govind Mendes Primary Care Provider + Reason for Visit * Auth/Cert (Routine) Specialty Diagnoses / Procedures Referred By Devaughn bobo Referred To Contact Diagnoses Encounter for screening for malignant neoplasm of colon 3 year Procedures PRO UPPER GI ENDOSCOPY, DIAGNOSTIC PRO COLONOSCOPY, DIAGNOSTIC PRO UPPER GI ENDOSCOPY, BIOPSY PRO UP GI ENDOSCOPY, REMV TUMOR, SNARE PRO ANES, UGI ENDOSCOPY NOS PRO COLONOSCOPY, DIAGNOSTIC PRO COLONOSCOPY, BIOPSY PRO COLONOSCOPY, REMV LESN, SNARE PRO ANES, LWR INTESTINE, NOS EGD, UPPER GI ENDOSCOPY (WRVU 2.09) COLONOSCOPY,SCREENING (WRVU 3.26) Lawrence Gar MD [facility] [place] [address] [facility] Referral ID Status Reason Start Date Expiration Date Visits Re quested Visits Authorized [id number] 1 1 Encounter Details Date Type Department Care Team (Late st Contact Info) Description 11/12/2023 11:00 AM EDT - 11/12/2023 12:00 PM EDT [place] [address] Lawrence Gar MD [facility] GASTROENTEROLOGY DEPT. [place], [place] [id number] [facility] Social History Tobacco Use Types Packs/Day Years [...] Sign Reading Time Taken Comments Blood Pressure 126/84 11/12/2023 11:58 AM EDT Pulse 64 11/12/2023 10:09 AM EDT Temperature 36.4 ??C (97.5 ??F) 11/12/2023 10:09 AM E DT Respiratory Rate 15 11/12/2023 11:58 AM EDT Oxygen Saturation 97% 11/12/2023 11:58 AM EDT Inhaled Oxygen Concentration - - Weight 70.3 kg (155 lb) 11/12/2023 10:09 AM EDT Height 167.6 cm (5' 6) 11/12/2023 10:09 AM EDT Body Mass Index 25.02 11/12/2023 10:09 AM EDT documented in this encounter Discharge Instructions * Discharge Instructions* Natasha Taveras RN - 11/12/2023 11:43 AM EDT Colonoscopy: What to Expect at Home Your Recovery Your doctor will talk to you about when you will need your next colonoscopy. Your doctor can help you decide how often you need to be checked. This will depend on the results of your test and your risk for colorectal cancer. After the test, you may be bloated or have gas pains. You may need to pass gas. If a biopsy was done or a polyp was removed, you may have streaks of blood in your stool (feces) for a few days. Problems such as heavy rectal bleeding may not occur until several weeks after the test. This isn't common. But it can happen after polyps are removed. This care sheet gives you a general idea about how long it will take for you to recover. But each person recovers at a different pace. Follow the steps below to get better as quickly as possible. How can you care for yourself at home? Activity Rest when you feel tired. You can do your normal activities when it feels okay to do so. Diet Follow your doctor's directions for eating. Unless your doctor has told you not to, drink plenty of fluids. This helps to replace the fluids that were lost during the colon prep. Do not drink alcohol. Medicines Your doctor will tell you if and when you can restart your medicines. He or she will also give you instructions about taking any new medicines. If you take blood thinners, such as warfarin (Coumadin), clopidogrel (Plavix), or aspirin, be sure to talk to your doctor. He or she will tell you if and when to start taking those medicines again. Make sure that you understand exactly what your doctor wants you to do. If polyps were removed or a biopsy was done during the test, your doctor may tell you not to take aspirin or other anti-inflammatory medicines for a few days. These include ibuprofen (Advil, Motrin) and naproxen (Aleve). Other instructions For your safety, do not drive or operate machinery until the medicine wears off and you can think clearly. Your doctor may tell you not to drive or operate machinery until the day after your test. Do not sign legal documents or make major decisions until the medicine wears off and you can think clearly. The anesthesia can make it hard for you to fully understand what you are agreeing to. Additional Information for Sedation Patients For patients who received sedation: You may have received medications before and/or during your procedure which effects your judgement and reaction time. Do not drive, operate machinery, drink alcoholic beverages or make important decisions for 24 hours. Be careful on stairs as you may be unsteady on your feet. You may eat a regular diet as tolerated. Do not smoke if you are alone. IV site: Slight redness or tenderness is normal, you can use a warm compress if you would like. If tenderness and/or redness increase or if foul drainage occurs, please contact your Doctor. Please call [phone] before 8pm Mon-Fri with problems, questions or concerns. If you call after 8pm or on weekends, call the Hospital at [phone] and ask to speak to the Adjunct Instructor In Economics stallion manager and the paper bags sewing machine operator will contact that person for you. When should you call for help? Call 911 anytime you think you may need emergency care. For example, call if: You passed out (lost consciousness). You pass maroon or bloody stools. You have trouble breathing. Call your doctor now or seek immediate medical care if: You have pain that does not get better after you take pain medicine. You are sick to your stomach or cannot drink fluids. You have new or worse belly pain. You have blood in your stools. You have a fever. You cannot pass stools or gas. Watch closely for changes in your health, and be sure to contact your doctor if you have any problems. Where can you learn more? [facility] View your After Visit Summary and more online at [email or web address] If you would like to provide feedback about your hospital experience, please call the Office of Patient and Family Relations at . If you have received this After Visit Summary in error, please immediately return it in person to the department, or notify the [facility] Privacy Office by calling toll free at between the hours of 8AM and 5PM to arrange for our retrieval of the documents at no cost to you. Content Version: 12.2 ?? [id number] [employer]. Care instructions adapted under license by [facility]. If you have questions about a medical condition or this instruction, always ask your healthcare professional. [employer] disclaims any warranty or liability for your use of this information.Upper GI Endoscopy: What to Expect at Home Your Recovery You will be able to go home after your doctor or nurse checks to make sure you are not having any problems. You may have to stay overnight if you had treatment during the test. You may have a sore throat fora day or two after the test. This care sheet gives you a general idea about what to expect after the test. How can you care for yourself at home? Activity Rest when you feel tired. You can do your normal activities when it feels okay to do so. Diet Follow your doctor's directions for eating. Unless your doctor has told you not to, drink plenty of fluids. This helps to replace the fluids that were lost during the prep. Do not drink alcohol. Medicines Your doctor will tell you if and when you can restart your medicines. He or she will also give you instructions about taking any new medicines. If you take blood thinners, such as warfarin (Coumadin), clopidogrel (Plavix), or aspirin, be sure to talk to your doctor. He or she will tell you if and when to start taking those medicines again. Make sure that you understand exactly what your doctor wants you to do. If polyps were removed or a biopsy was done during the test, your doctor may tell you not to take aspirin or other anti-inflammatory medicines for a few days. These include ibuprofen (Advil, Motrin) and naproxen (Aleve). If you have a sore throat the day after the procedure, use an ytpa-lho-bjpfjzl spray to numb your throat. Sucking on throat lozenges and gargling with warm salt water may also help relieve your symptoms. Other instructions For your safety, do not drive or operate machinery until the medicine wears off and you can think clearly. Your doctor may tell you not to drive or operate machinery until the day after your test. Do not sign legal documents or make major decisions until the medicine wears off and you can think clearly. The anesthesia can make it hard for you to fully understand what you are agreeing to. Additional Information for Sedation Patients For patients who received sedation: You may have received medications before and/or during your procedure which effects your judgement and reaction time. Do not drive, operate machinery, drink alcoholic beverages or make important decisions for 24 hours. Be careful on stairs as you may be unsteady on your feet. You may eat a regular diet as tolerated. Do not smoke if you are alone. IV site: Slight redness or tenderness is normal, you can use a warm compress if you would like. If tenderness and/or redness increase or if foul drainage occurs, please contact your Doctor. Please call [phone] before 8pm Mon-Fri with problems, questions or concerns. If you call after 8pm or on weekends, call the Hospital at [phone] and ask to speak to the Adjunct Instructor In [employer] stallion manager and the paper bags sewing machine operator will contact that person for you. When should you call for help? Call [phone] anytime you think you may need emergency care. For example, call if: You passed out (lost consciousness). You pass maroon or bloody stools. You have trouble breathing. Call your doctor now or seek immediate medical care if: You have pain that does not get better after you take pain medicine. You are sick to your stomach or cannot drink fluids. You have new or worse belly pain. You have blood in your stools. You have a fever. You cannot pass stools or gas. Watch closely for changes in your health, and be sure to contact your doctor if you have any problems. Where can you learn more? [facility] View your After Visit Summary and more online at [email or web address] If you would like to provide feedback about your hospital experience, please call the Office of Patient and Family Relations at . If you have received this After Visit Summary in error, please immediately return it in person to the department, or notify the [facility] Privacy Office by calling toll free at between the hours of 8AM and 5PM to arrange for our retrieval of the documents at no cost to you. Content Version: 12.2 ?? [phone] [employer]. Care instructions adapted under license by [facility]. If you have questions about a medical condition or this instruction, always ask your healthcare professional. [employer] disclaims any warranty or liability for your use of this information.Upper GI Endoscopy: What to Expect at Home Your Recovery You will be able to go home after your doctor or nurse checks to make sure you are not having any problems. You may have to stay overnight if you had treatment during the test. You may have a sore throat fora day or two after the test. This care sheet gives you a general idea about what to expect after the test. How can you care for yourself at home? Activity Rest when you feel tired. You can do your normal activities when it feels okay to do so. Diet Follow your doctor's directions for eating. Unless your doctor has told you not to, drink plenty of fluids. This helps to replace the fluids that were lost during the prep. Do not drink alcohol. Medicines Your doctor will tell you if and when you can restart your medicines. He or she will also give you instructions about taking any new medicines. If you take blood thinners, such as warfarin (Coumadin), clopidogrel (Plavix), or aspirin, be sure to talk to your doctor. He or she will tell you if and when to start taking those medicines again. Make sure that you understand exactly what your doctor wants you to do. If polyps were removed or a biopsy was done during the test, your doctor may tell you not to take aspirin or other anti-inflammatory medicines for a few days. These include ibuprofen (Advil, Motrin) and naproxen (Aleve). If you have a sore throat the day after the procedure, use an yeax-lqb-vhqshie spray to numb your throat. Sucking on throat lozenges and gargling with warm salt water may also help relieve your symptoms. Other instructions For your safety, do not drive or operate machinery until the medicine wears off and you can think clearly. Your doctor may tell you not to drive or operate machinery until the day after your test. Do not sign legal documents or make major decisions until the medicine wears off and you can think clearly. The anesthesia can make it hard for you to fully understand what you are agreeing to. Additional Information for Sedation Patients For patients who received sedation: You may have received medications before and/or during your procedure which effects your judgement and reaction time. Do not drive, operate machinery, drink alcoholic beverages or make important decisions for 24 hours. Be careful on stairs as you may be unsteady on your feet. You may eat a regular diet as tolerated. Do not smoke if you are alone. IV site: Slight redness or tenderness is normal, you can use a warm compress if you would like. If tenderness and/or redness increase or if foul drainage occurs, please contact your Doctor. Please call [phone] before 8pm Mon-Fri with problems, questions or concerns. If you call after 8pm or on weekends, call the Hospital at [phone] and ask to speak to the Adjunct Instructor In Economics stallion manager and the paper bags sewing machine operator will contact that person for you. When should you call for help? Call [phone] anytime you think you may need emergency care. For example, call if: You passed out (lost consciousness). You pass maroon or bloody stools. You have trouble breathing. Call your doctor now or seek immediate medical care if: You have pain that does not get better after you take pain medicine. You are sick to your stomach or cannot drink fluids. You have new or worse belly pain. You have blood in your stools. You have a fever. You cannot pass stools or gas. Watch closely for changes in your health, and be sure to contact your doctor if you have any problems. Where can you learn more? [facility] View your After Visit Summary and more online at [email or web address] If you would like to provide feedback about your hospital experience, please call the Office of Patient and Family Relations at . If you have received this After Visit Summary in error, please immediately return it in person to the department, or notify the [facility] Privacy Office by calling toll free at between the hours of 8AM and 5PM to arrange for our retrieval of the documents at no cost to you. Content Version: 12.2 ?? [phone] [employer]. Care instructions adapted under license by [facility]. If you have questions about a medical condition or this instruction, always ask your healthcare professional. [employer] disclaims any warranty or liability for your use of this information. documented in this encounter Medications at Time of Discharge Medication Sig Dispensed Refills Start Date End Date lisinopriL (Zestril) 20 mg tablet Take 1 tablet by mouth daily. 90 tablet 3 11/07/2023 calciTRIoL (Rocaltrol) 0.25 mcg capsule Take 1 capsule by mouth daily. 90 capsule 3 11/07/2023 empagliflozin (Jardiance) 10 mg tablet Take 10 mg by mouth daily. b complex vitamins Tablet Take 1 tablet by mouth daily. ferrous gluconate (Ferate) 324 mg (37.5 mg iron) tablet Take 324 mg by mouth every other day. metoprolol succinate XL (Toprol-XL) 50 mg ER 24 hr tablet Take 50 mg by mouth daily. 07/19/2022 amLODIPine (Norvasc) 5 mg tablet Take 1 tablet by mouth daily. 90 tablet 3 08/17/2022 acetaminophen (Tylenol) 325 mg tablet Take 650 mg by mouth Every 4 hours as needed. 10/26/2021 triamcinolone (KENALOG) 0.1 % Ointment Apply to affected areas on ankles twice daily x 2 weeks, then reduce to once daily x 2 weeks. For recurrences, okay to use up to 14 days total per month 45 g 3 08/11/2020 documented as of this encounter Progress Notes * Lawrence Gar MD - 11/12/2023 12:10 PM EDT I called him with results. Will arrange EGD for Sharma's ablation within next 1-2 mos. [place] rotary5 yrs. documented in this encounter H&P Notes * Lawrence Gar MD - 11/12/2023 10:46 AM EDT Gastroenterology and Hepatology Pre-Procedure History and Physical Exam Procedure: EGD: Colonoscopy: Indication: F/up short segment Sharma's and colon polyps. 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 ASA 3 - Patient with moderate systemic disease with functional limitations Sedation Plan: deep Risks and benefits of the procedure explained to the patient. Consent signed. documented in this encounter Plan of Treatment Upcoming Encounters Date Type Department Care Team (Latest Contact Info) Description 01/02/2024 7:30 AM EDT Hospital Encounter [place] [address] Lawrence Gar MD [facility] [place]STR[place] [address] 01/02/2024 7:30 AM EDT - 01/02/2024 8:30 AM EDT [place] [address] Lawrence Gar MD [facility] DR [place]STR[place] [address] EGD, UPPER GI ENDOSCOPY (WRVU 2.09) 11/17/2024 4:20 PM EDT Office [place] [address] Lawrence Gar MD [facility] DR [place] [address] Scheduled Procedures Name Priority Associated Diagnoses Date/Ti me EGD, UPPER GI ENDOSCOPY (WRVU 2.09) Sharma's esophagus with dysplasia 01/02/2024 7:30 AM EDT documented as of this encounter Procedures Procedure Name Priority Date/Time Associated Diagnosis Comments SURGICAL PATHOLOGY REPORT Routine 11/12/2023 11:23 AM EDT SPECIMEN TO PATHOLOGY Routine 11/12/2023 11:23 AM EDT SPECIMEN TO PATHOLOGY Routine 11/12/2023 11:23 AM EDT Colonoscopy, Remv Lesn, Snare ([id number]) 11/12/2023 10:48 AM EDT 3 year Upper Gi Endoscopy, Biopsy ([id number]) 11/12/2023 10:48 AM EDT 3 year UPPER GI ENDOSCOPY Routine 11/12/2023 10 :28 AM EDT COLONOSCOPY Routine 11/12/2023 10:27 AM EDT documented in this encounter Results * (ABNORMAL) Surgical Pathology Report (11/12/2023 11:23 AM EDT) Pathologist [facility] Surgical Pathology Report [id number] ? Location: 4T; 06; A The signing pathologist has (i) examined the relevant preparation(s) for the specimen(s) and (ii) rendered or confirmed the diagnosis(es). . ?Surgical Pathology DIAGNOSIS A - Distal esophagus, biopsy (Multiple): - ??Sahrma's esophagus with ??low-grade dysplasia ??and focal high-grade dysplasia . - ??Multiple levels examined. B - Sigmoid colon polyp, excision: - ??Hyperplastic polyp. - ??Multiple levels examined. CR-PX Electronically signed by: ?Amanda HENDRICKS PhD, Shyla Verified: ??11/26/2023 14:50 ??Pathologist Performed at: ??-[facility] Dept. of Pathology, [place] [address] [employer] Offbearer: Deana Lopez MD, FCAP, ??CLIA Certificate: [id number] DISCUSSION The case was reviewed at the [...] submitted in 1 cassette labeled B1. ??ajw(A) [facility] 11/12/2023 11:2 3 AM EDT Lawrence Gar MD PATHOLOGY/CYTOLOGY O SONIYA Performing Organization Address [facility] Co de Phone Number [facility] [place] [address] * Specimen to Pathology (11/12/2023 11:23 AM EDT) AP Specimen 11/12/2023 11:2 3 AM EDT 11/12/2023 11:23 AM EDT Narrative [facility] - 11/12/2023 11:23 AM EDT Specimen requisition ordered. ??Separate Pathology report to follow Lawrence Gar MD PATHOLOGY/CYTOLOGY O SONIYA [facility] [place] [address] * Specimen to Pathology (11/12/2023 11:23 AM EDT) AP Specimen 11/12/2023 11:2 3 AM EDT 11/12/2023 11:23 AM EDT Narrative [facility] - 11/12/2023 11:23 AM EDT Specimen requisition ordered. ??Separate Pathology report to follow Lawrence Gar MD PATHOLOGY/CYTOLOGY O SONIYA Performing Organization Address [facility]/State/[place] [address] * UPPER GI ENDOSCOPY (11/12/2023 10:28 AM EDT) UPPER GI ENDOSCOPY [facility] Endoscopy ___ Procedure Date: 11/12/2023 10:28 AM ? Patient Name: Mathew Mendez ? [facility]: [id number] ? Date of : 1955 ? Age: 68 ? Order #: [id number] ? Instrument Name: [id number] ? ___ Procedure: ? Upper GI endoscopy Indications: ? Follow-up of Sharma's esophagus Providers: ? Lawrence Gar MD, Adore Wilson ? Todd Vanegas MD: ?Govind Haddad: ? Propofol per Anesthesia Complications: ? [...] were ? examined with white light and Fujifilm Blue Light ? Imaging from a forward [...] personally performed the entire procedure. ? Lawrence aGr MD 11/12/2023 11:06:44 AM This report has been signed electronically. Number of Addenda: 0 Note Initiated On: 11/12/2023 10:28 AM PROVATION 11/12/2023 10:2 8 AM EDT Govind ROBERTS GENERAL SURGICAL ORDERABLES PROVATION * COLONOSCOPY (11/12/2023 10:27 AM EDT) COLONOSCOPY [facility] Endoscopy ___ Procedure Date: 11/12/2023 10:27 AM ? Patient Name: Mathew Mendez ? Date of : 1955 ? Age: 68 ? Order #: [id number] ? Instrument Name: [id number] ? ___ Procedure: ? Colonoscopy Indications: ? [...] ? was evaluated using the BBPS ? ([place] Bowel Preparation Scale) ? with scores of: [...] Slade Tran MD GENERAL SURGICAL ORD ERABLES [employer]OVATION documented in this encounter Visit Diagnoses Not on filedocumented in this encounter Administered Medications Inactive Administered Medications - up to 3 most recent administrations Medication Order MAR Action Action Date Dose Rate Site lactated ringers infusion 100 mL/hr, Intravenous, CONTINUOUS, Starting on Sat11/12/23 at 1030, Until Sat11/12/23 at 1204, Endoscopy (Day of Procedure) Restarted 11/12/2023 10:51 AM EDT New Bag 11/12/2023 10:30 AM EDT 100 mL/hr 100 mL/hr documented in this encounter Active and Recently Administered Medications Times are shown in EDT. Continuous Medication Order 11/10/2023 11/11/2023 11/12/2023 lactated ringers infusion (CANCELED) 100 mL/hr, Intravenous, CONTINUOUS, Starting on Sat11/12/23 at 1030, Until Sat11/12/23 at 1204, Endoscopy (Day of Procedure) 1030 (New Bag - Prov ider: Michelle Diaz LPN)1050 (Paused - Provider: Dominguez Cullen CRNA - Comment: Switch to gravity)1051 (Restarted - Provider: Dominguez Cullen CRNA)1100 (Anesthesia Volume Adjustment - Provider: Dominguez Cullen CRNA) documented in this encounter Care Teams Sales And Marketing Administrator Relationship Specialty Start Date End Date Govind [place] [address] PCP - General Internal Medicine 11/06/23 documented as of this encounter
--- OUTSIDE RECORDS SUMMARY | 2023-12-10 04:58 | XMS_ITS | Encounter Summary ---
Author Organization [facility] Address [address] [place] [address] Care Team Providers Care County Administrator Name Role Phone Jovani Wharton DO Primary Care Provider +1- [phone] Reason for Visit * (Routine/Next Available) - Receiving Office to Obtain Authorization Specialty Diagnoses / Procedures Referred By Devaughn bobo Referred To Contact Procedures XR OUTSIDE IMAGES CHEST Imaging, External Referral ID Status Reason Start Date Expiration Date Visits Requested Visits Authorized [id number] Receiving Office to Obtain Authorization 07/26/2021 1 1 Encounter Details Date Type Department Care Team (Latest Contact Info) Description 07/25/2021 - 07/25/2021 23:59 EST Hospital Encounter [facility] Secondary Reads [place] Discharge Disposition: Home or [...] Date/Time Associated Diagnosis Comments XR OUTSIDE IMAGES CHEST Routine 07/26/2021 9:28 EST documented in this encounter Results * XR OUTSIDE IMAGES CHEST (07/26/2021 9:28 EST) Narrative 07/26/2021 9:28 EST This is a non-reportable exam. External Imaging IMG OTHER IMAGING OR DERABLES documented in this encounter Visit Diagnoses Not on filedocumented in this encounter Care Teams County Administrator Relationship Specialty Start Date End Date Jovani Wharton DO [address] [place] [address] PCP - General 10/11/16 10/17/21 documented as of this encounter
--- OUTSIDE RECORDS SUMMARY | 2023-12-10 04:58 | XMS_ITS | Encounter Summary ---
Author Organization [facility] Address [address] [place] [address] Care Team Providers Care Rubber Goods Assembler Name Role Phone DioJovani liu Michel Primary Care Provider +1- [phone] Reason for Visit * (Routine/Next Available) - Receiving Office to Obtain Authorization Specialty Diagnoses / Procedures Referred By Devaughn bobo Referred To Contact Procedures XR OUTSIDE IMAGES BODY Imaging, External Referral ID Status Reason Start Date Expiration Date Visits Requested Visits Authorized [id number] Receiving Office to Obtain Authorization 07/26/2021 1 1 Encounter Details Date Type Department Care Team (Latest Contact Info) Description 07/26/2021 22:36 EST - 07/26/2021 23:59 EST Hospital Encounter [facility] Secondary Reads [place] Discharge Disposition: Home [...] Diagnosis Comments XR OUTSIDE IMAGES BODY Routine 07/26/2021 22:36 EST documented in this encounter Results * XR OUTSIDE IMAGES BODY (07/26/2021 22:36 EST) Narrative 07/26/2021 22:36 EST This is a non-reportable exam. External Imaging IMG OTHER IMAGING OR DERABLES documented in this encounter Visit Diagnoses Not on filedocumented in this encounter Care Teams Rubber Goods Assembler Relationship Specialty Start Date End Date Jovani Wharton DO [address] [place] [address] PCP - General 10/11/16 10/17/21 documented as of this encounter
--- OUTSIDE RECORDS SUMMARY | 2023-12-10 04:58 | XMS_ITS | Encounter Summary ---
Author Organization [facility] Address [address] [place] [address] Care Team Providers Care Proofing Machine Operator Name Role Phone Jovani Wharton DO Primary Care Provider +1- [phone] Encounter Details Date Type Department Care Team (Latest Contact Info) Description 07/31/2021 - 07/31/2021 18:57 EST Hospital Encounter [facility] Secondary Reads [place] Discharge Disposition: Home [...] 15:32 EST documented as of this encounter Medications at Time of Discharge Medication Sig Dispensed Refills Start Date End Date allopurinoL (ZYLOPRIM) 100 mg tablet Take 100 mg by mouth daily. metoprolol TARtrate (LOPRESSOR) 25 mg tablet Take 0.5 Tablets by mouth 2 times daily. 30 Tablet 4 08/11/2021 metoprolol TARtrate (LOPRESSOR) 25 mg tablet Take 0.5 Tablets by mouth 2 times daily. 30 Tablet 3 08/11/2021 08/11/2021 omeprazole (PRILOSEC) 20 mg capsule Take 40 mg by mouth every morning. 10/21/2021 oxyCODONE (ROXICODONE) 5 mg immediate release tablet Take 1 Tablet by mouth every 6 hours as needed for Pain. Daily Max: 20 mg 10 Tablet 08/10/2021 08/11/2021 pantoprazole (PROTONIX) 40 mg tablet Take 1 Tablet by mouth daily before breakfast for 30 days. 30 Tablet 2 08/11/2021 08/11/2021 traMADol (ULTRAM) 50 mg tablet Take 1 Tablet by mouth every 6 hours as needed for Pain. Daily Max: 200 mg 20 Tablet 08/11/2021 08/19/2021 documented as of this encounter Discharge Disposition Disposition Code Departure Means Destination Home or Self Care documented in this encounter Plan of Treatment Not on file documented as of this encounter Procedures Procedure Name Priority Date/Time Associated Diagnosis Comments FL OUTSIDE IMAGES Routine 08/07/2021 13: 27 EDT documented in this encounter Results * FL OUTSIDE IMAGES (08/07/2021 13:27 EDT) Narrative 08/07/2021 13:27 EDT This is a non-reportable exam. External Imaging IMG OTHER IMAGING OR DERABLES documented in this encounter Visit Diagnoses Not on filedocumented in this encounter Care Teams Proofing Machine Operator Relationship Specialty Start Date End Date Jovani Wharton DO [address] [place] [address] PCP - General 10/11/16 10/17/21 documented as of this encounter
--- OUTSIDE RECORDS SUMMARY | 2023-12-10 04:58 | XMS_ITS | Encounter Summary ---
Author Organization [facility] Address [address] [place] [address] Care Team Providers Care Greenskeeper Laborer Name Role Phone Jovani Wharton DO Primary Care Provider +1- [phone] Reason for Visit * (Routine/Next Available) - Receiving Office to Obtain Authorization Specialty Diagnoses / Procedures Referred By Devaughn t Referred To Contact Procedures CT OUTSIDE IMAGES BODY Imaging, External Referral ID Status Reason Start Date Expiration Date Visits Requested Visits Authorized [id number] Receiving Office to Obtain Authorization 07/23/2021 1 1 Encounter Details Date Type Department Care Team (Latest Contact Info) Description 06/02/2020 - 06/02/2020 23:59 EST Hospital Encounter [facility] Secondary Reads [place] Discharge Disposition: [...] on filedocumented in this encounter Care Teams Greenskeeper Laborer Relationship Specialty Start Date End Date Jovani Wharton DO [address] [place] [address] PCP - General 10/11/16 10/17/21 documented as of this encounter
--- OUTSIDE RECORDS SUMMARY | 2023-12-10 04:58 | XMS_ITS | Encounter Summary ---
Author Organization [facility] Address [address] [place] [address] Care Team Providers Care Spring Upholsterer Name Role Phone Jovani Wharton DO Primary Care Provider +1- [phone] Reason for Visit * (Routine/Next Available) - Receiving Office to Obtain Authorization Specialty Diagnoses / Procedures Referred By Devaughn bobo Referred To Contact Procedures XR OUTSIDE IMAGES CHEST Unknown, Provider, Referral ID Status Reason Start Date Expiration Date Visits Requested Visits Authorized [id number] Receiving Office to Obtain Authorization 07/27/2021 1 1 Encounter Details Date Type Department Care Team (Latest Contact Info) Description 07/26/2021 - 07/26/2021 9:26 EST Hospital Encounter [facility] Secondary Reads [place] Discharge Disposition: [...] Diagnosis Comments XR OUTSIDE IMAGES CHEST Routine 07/27/2021 12:22 EST documented in this encounter Results * XR OUTSIDE IMAGES CHEST (07/27/2021 12:22 EST) Narrative 07/27/2021 12:22 EST This is a non-reportable exam. Provider Unknown MD HAHN OTHER IMAGING OR DERABLES documented in this encounter Visit Diagnoses Not on filedocumented in this encounter Care Teams Spring Upholsterer Relationship Specialty Start Date End Date Jovani Wharton DO [address] [place] [address] PCP - General 10/11/16 10/17/21 documented as of this encounter
--- OUTSIDE RECORDS SUMMARY | 2023-12-10 04:58 | XMS_ITS | Encounter Summary ---
Author Organization [facility] [place] [place] [address] Care Team Providers Care French Tutor Name Role Phone Govind Mendes Primary Care [...] 2.09) COLONOSCOPY,SCREENING (WRVU 3.26) Lawrence Gar MD [facility] [place] [address] [facility] Referral ID Status Reason Start Date Expiration Date Visits Re quested Visits Authorized [id number] 1 1 Encounter Details Date Type Department Care Team (Latest Contact Info) Description 11/12/2023 9:46 AM EDT - 11/12/2023 12:10 PM EDT Hospital En[place] [address] Lawrence Gar MD [facility] [place] [address] [phone] (work) Discharge Disposition: Home Social History Tobacco Use Types Packs/Day Years [...] occurs, please contact your Doctor. Please call [phone] before 8pm Mon-Fri with problems, questions or concerns. If you call after 8pm or on weekends, call the Hospital at [phone] and ask to speak to the Director Community Organization utilization engineer and the chain machine operator will contact that person for you. When should you call for help? Call [phone] anytime you think you may need emergency [...] Where can you learn more? [facility] View your After Visit Summary and more online at [email or web address] If you would like to provide feedback about your hospital experience, please call the Office of Patient and Family Relations at . If you have received this After Visit Summary in error, please immediately return it in person to the department, or notify the [facility] Privacy Office by calling toll free at between the hours of 8AM and 5PM to arrange for our retrieval of the documents at no cost to you. Content Version: 12.2 ?? 6437-3613 Njuice. Care instructions adapted under license by [facility]. If you have questions about a medical condition or this instruction, always ask your healthcare professional. [employer] disclaims any warranty or liability for your [...] the day after the procedure, use an jeib-ifu-kligtvr spray to numb your throat. Sucking on [...] occurs, please contact your Doctor. Please call [phone] before 8pm Mon-Fri with problems, questions or concerns. If you call after 8pm or on weekends, call the Hospital at [phone] and ask to speak to the Director Community Organization utilization engineer and the chain machine operator will contact that person for you. When should you call for help? Call [phone] anytime you think you may need emergency [...] Where can you learn more? [facility] View your After Visit Summary and more online at [email or web address] If you would like to provide feedback about your hospital experience, please call the Office of Patient and Family Relations at . If you have received this After Visit Summary in error, please immediately return it in person to the department, or notify the [facility] Privacy Office by calling toll free at between the hours of 8AM and 5PM to arrange for our retrieval of the documents at no cost to you. Content Version: 12.2 ?? 0730-5872 Njuice. Care instructions adapted under license by [facility]. If you have questions about a medical condition or this instruction, always ask your healthcare professional. [employer] disclaims any warranty or liability for your [...] the day after the procedure, use an rmay-edj-hmcusec spray to numb your throat. Sucking on [...] occurs, please contact your Doctor. Please call [phone] before 8pm Mon-Fri with problems, questions or concerns. If you call after 8pm or on weekends, call the Hospital at [phone] and ask to speak to the Director Community Organization utilization engineer and the chain machine operator will contact that person for you. When should you call for help? Call [phone] anytime you think you may need emergency [...] Where can you learn more? [facility] View your After Visit Summary and more online at [email or web address] If you would like to provide feedback about your hospital experience, please call the Office of Patient and Family Relations at . If you have received this After Visit Summary in error, please immediately return it in person to the department, or notify the [facility] Privacy Office by calling toll free at between the hours of 8AM and 5PM to arrange for our retrieval of the documents at no cost to you. Content Version: 12.2 ?? 8732-9610 Njuice. Care instructions adapted under license by [facility]. If you have questions about a medical condition or this instruction, always ask your healthcare professional. [employer] disclaims any warranty or liability for your [...] for Sharma's ablation within next 1-2 mos. [employer] rotary5 yrs. documented in this encounter H&P [...] 7:30 AM EDT Hospital Encounter Gastroenterology at [place] [phone] Lawrence Gar MD [facility] [place] [address] 01/02/2024 7:30 AM EDT - 01/02/2024 8:30 AM EDT [place] [address] Lawrence Gar MD [facility] [place] [address] EGD, UPPER GI ENDOSCOPY (WRVU 2.09) 11/17/2024 4:20 PM EDT Office [place] [address] Lawrence Gar MD [facility] [place] [address] Scheduled Procedures Name Priority Associated Diagnoses Date/Ti me EGD, UPPER GI ENDOSCOPY (WRVU 2.09) Sharma's esophagus with dysplasia 01/02/2024 7:30 AM EDT documented as of this encounter Procedures Procedure Name Priority Date/Time Associated Diagnosis Comments SURGICAL PATHOLOGY REPORT Routine 11/12/2023 11:23 AM EDT SPECIMEN TO PATHOLOGY Routine 11/12/2023 11:23 AM EDT SPECIMEN TO PATHOLOGY Routine 11/12/2023 11:23 AM EDT Colonoscopy, Remv Lesn, Snare ([id number]) 11/12/2023 10:48 AM EDT 3 year Upper Gi Endoscopy, Biopsy ([id number]) 11/12/2023 10:48 AM EDT 3 year UPPER GI ENDOSCOPY Routine 11/12/2023 10 :28 AM EDT COLONOSCOPY Routine 11/12/2023 10:27 AM EDT documented in this encounter Results * (ABNORMAL) Surgical Pathology Report (11/12/2023 11:23 AM EDT) Pathologist [facility] Surgical Pathology Report [id number] ? Location: 4T; 06; A The signing [...] Shyla Verified: ??11/26/2023 14:50 ??Pathologist Performed at: ??-[facility] [place], [place] [address] Printed Circuit Designer: Deana Lopez MD, FCAP, ??CLIA Certificate: [id number] DISCUSSION The case was reviewed at the [...] submitted in 1 cassette labeled B1. ??ajw(A) [facility] 11/12/2023 11:2 3 AM EDT Lawrence Gar MD PATHOLOGY/CYTOLOGY O SONIYA Performing Organization Address [facility] Co de Phone Number [facility] [address] * Specimen to Pathology (11/12/2023 11:23 AM EDT) AP Specimen 11/12/2023 11:2 3 AM EDT 11/12/2023 11:23 AM EDT Narrative [facility] - 11/12/2023 11:23 AM EDT Specimen requisition ordered. ??Separate Pathology report to follow Lawrence Gar MD PATHOLOGY/CYTOLOGY O SONIYA Performing Organization Address [facility] [place] [address] * Specimen to Pathology (11/12/2023 11:23 AM EDT) AP Specimen 11/12/2023 11:2 3 AM EDT 11/12/2023 11:23 AM EDT Narrative [facility] - 11/12/2023 11:23 AM EDT Specimen requisition ordered. ??Separate Pathology report to follow Lawrence Gar MD PATHOLOGY/CYT[place] [address] * UPPER GI ENDOSCOPY (11/12/2023 10:28 AM EDT) UPPER GI ENDOSCOPY [facility] ___ Procedure Date: 11/12/2023 10:28 AM ? Patient Name: Mathew Mendez ? N: [id number] ? Date of : 1955 ? Age: 68 ? Order #: [id number] ? Instrument Name: [id number]- [id number] ? ___ Procedure: ? Upper GI endoscopy [...] * COLONOSCOPY (11/12/2023 10:27 AM EDT) COLONOSCOPY [facility] ___ Procedure Date: 11/12/2023 10:27 AM ? Patient Name: Mathew Mendez ? N: [id number] ? Date of : 1955 ? Age: 68 ? Order #: [id number] ? Instrument Name: [id number]- [id number] ? ___ Procedure: ? Colonoscopy Indications: ? [...] ? was evaluated using the BBPS ? ([place] Bowel Preparation Scale) ? with scores of: [...] CRNA) documented in this encounter Care Teams French Tutor Relationship Specialty Start Date End Date Govind Mendes [place] [address] PCP - General Internal Medicine 11/06/23 documented as of this encounter
--- OUTSIDE RECORDS SUMMARY | 2023-12-10 04:58 | XMS_ITS | Encounter Summary ---
Author Organization [facility] Address [address] [place] [address] Care Team Providers Care Over Hauler Helper Name Role Phone Jovani Wharton DO Primary Care Provider +1- [phone] Reason for Visit * (Routine/Next Available) - Receiving Office to Obtain Authorization Specialty Diagnoses / Procedures Referred By Devaughn bobo Referred To Contact Procedures XR OUTSIDE IMAGES CHEST Unknown, Provider, Referral ID Status Reason Start Date Expiration Date Visits Requested Visits Authorized [id number] Receiving Office to Obtain Authorization 07/27/2021 1 1 Encounter Details Date Type Department Care Team (Latest Contact Info) Description 07/27/2021 12:18 EST Hospital Encounter [facility] Secondary Reads [place] Discharge Disposition: Home [...] Comments XR OUTSIDE IMAGES CHEST Routine 07/27/2021 12:18 EST documented in this encounter Results * XR OUTSIDE IMAGES CHEST (07/27/2021 12:18 EST) Narrative 07/27/2021 12:18 EST This is a non-reportable exam. Provider Unknown MD HAHN OTHER IMAGING OR DERABLES documented in this encounter Visit Diagnoses Not on filedocumented in this encounter Care Teams Over Hauler Helper Relationship Specialty Start Date End Date Jovani Wharton DO [address] [place] [address] PCP - General 10/11/16 10/17/21 documented as of this encounter
--- OUTSIDE RECORDS SUMMARY | 2023-12-10 04:58 | XMS_ITS | Encounter Summary ---
Author Organization [facility] Address [address] [place] [address] Care Team Providers Care Breaker Mechanic Name Role Phone Jovani Wharton DO Primary Care Provider [phone] Reason for Referral * Specialty Diagnoses / Procedures Referred By Contac t Referred To Contact Sanjuana Gaona NP [address] [place] [phone] Referral ID Status Reason Start Date Expiration Date Visits Re quested Visits Authorized Comments Please call the General Surgery clinic at [phone] if you have any questions for Dr. Lee. Please schedule a follow up in 2-3 weeks. * Specialty Diagnoses / Procedures Referred By Contac t Referred To Contact Sanjuana Gaona NP [address] [place] [phone] Referral ID Status Reason Start Date Expiration Date Visits Re quested Visits Authorized Comments Chest pain (angina) Dizziness or fainting Decreased urine output Fever greater than 101 or chills Inability to swallow or increasing difficulty swallowing Increased or new pain Nausea or vomiting Pain unrelieved by medication Recurrence of symptoms that brought you to the hospital Severe or increasing headache Shortness of breath or rapid breathing Skin rash Signs of infection such as pain, redness, swelling or drainage at procedure or wound site Swelling in your legs * Specialty Diagnoses / Procedures Referred By Contac t Referred To Contact Sanjuana Gaona NP [address] [phone] Referral ID Status Reason Start Date Expiration Date Visits Re quested Visits Authorized Comments We are currently collecting quality data on patients having surgery. You may receive a phone call, email, and/or letter about your surgery asking you a series of follow up questions to evaluate specifics aspects of your care. Thank you for your participation. * Specialty Diagnoses / Procedures Referred By Contac t Referred To Contact Sanjuana Gaona NP [address] [phone] Referral ID Status Reason Start Date Expiration Date Visits Re quested Visits Authorized Comments We are currently collecting quality data on patients having surgery. You may receive a phone call, email, and/or letter about your surgery asking you a series of follow up questions to evaluate specifics aspects of your care. Thank you for your participation. Reason for Visit * Auth/Cert Specialty Diagnoses / Procedures Referred By Contac t Referred To Contact Diagnoses Paraesophageal hernia Obstructed Hiatal Hernia Referral ID Status Reason Start Date Expiration Date Visits Re quested Visits Authorized [id number] 1 1 Encounter Details Date Type Department Care Team (Late st Contact Info) Description 07/31/2021 18:58 EST - 08/11/2021 12:47 EDT Hospital Encounter [facility] General Surgery Unit [address] [place] [address] Ollie Lee MD [address] [phone] Paraesophageal hernia Discharge Disposition: Home or Self [...] Sign Reading Time Taken Comments Blood Pressure 138/90 08/11/2021 1100 EDT Pulse 72 08/11/2021 0548 EDT Temperature 36.4 ??C (97.5 ??F) 08/11/2021 1100 EDT Respiratory Rate 18 08/11/2021 1100 EDT Oxygen Saturation 97% 08/11/2021 1100 EDT Inhaled Oxygen Concentration - - Weight 69.1 kg (152 lb 6.4 oz) 08/11/2021 0604 E DT Height 167.6 cm (5' 6) 07/31/20211999 EST Body Mass Index 24.6 07/31/2021 2000 EST documented in this encounter [...] No 07/31/2021 documented as of this encounter Discharge Summaries * Ashlie Greene MD - 08/11/2021 1145 EDT Surgery Discharge Summary Primary Care Provider: Jovani Wharton Attending Physician: Ollie Lee* Admit Date: 07/31/2021 Discharge Date: 08/11/2021 Disposition: Home or self care Problems and Procedures Admitting Diagnosis: Gastric volvulus Principal/Final Diagnosis: Gastric volvulus Additional Problems Managed in the Hospital Active Hospital Problems Diagnosis Date Noted ??? *Paraesophageal hernia 08/01/2021 Resolved Hospital Problems No resolved problems to display. Principal Procedure: None Date: NA Secondary Procedures: none Hospital Course Mathew Mendez is a 66-year-old male with history of paraesophageal hernia, hypertension, GERD, CKD 4,and diverticulitis (status post small bowel resection, colostomy, and subsequent colostomy reversal) who presented on 07/31/21as a transfer from [facility] after presenting with acute onset abdominal pain secondary to an incarcerated paraesophageal hernia. He was taken to the OR at [facility] where a partial gastric reduction and suture gastropexy was performed at on 07/24/21. Unfortunately, while his symptoms did improve slightly, he still had significant pain and evidence of delayed emptying on UGI study. He was thus transferred to [facility] and continued on the TPN that was started at [facility]. An UGI was obtained the day after admission at [facility] where contrast was seen to traverse the stomach in the chest and eventually pass into the duodenum and small bowel. He was slowly initiated on clear liquid diet and gradually advanced to a full liquid diet. Nutrition was consulted, and their recommendations were followed. His TPN and PICC were DC'd. He was discharged to home and counseled to follow up with Dr. Lee in 10 days. Allergies and Immunizations Allergies Allergen Reactions ??? Morphine Hives Immunization History Administered Date(s) Administered ??? Covid-19 mRNA Vaccine ([facility] COVID-19) PF 0.3 ml IM (12 yrs+) 07/25/2020, 08/16/2020, 03/13/2021 Transition of Care Plans Condition at Discharge Good Assessment at Discharge Vital signs: Patient Vitals for the past 12 hrs: BP Pulse Heart Rate Resp Temp SpO2 O2 Device 08/11/21 1100 138/90 -- 78 BPM 18 36.4 ??C (97.5 ??F) 97 % -- 08/11/21 0816 132/90 -- 73 BPM -- -- -- -- 08/11/21 0548 (!) 134/92 72 -- 16 36.6 ??C (97.8 ??F) 95 % None 08/10/21 2352 (!) 131/93 80 -- 16 36.6 ??C (97.9 ??F) 97 % None Results Pending at Discharge Test results still pending from this admission None Relevant Studies at Discharge XR ABDOMEN 1 VIEW Result Date: 08/01/2021 XR ABDOMEN 1 VIEW 08/01/2021 7:55 AM Clinical History/Comments: s.p barium swallow at OSH yesterday. Please evaluate contrast. Diagnosis of paraesophageal hernia Comparison: Multiple prior comparison abdominal radiographs, most recently 07/28/2021. Prior chest radiographs, most recently 07/31/2021 and CTabdomen and pelvis 07/23/2021. Technique: AP supine view of the abdomen was obtained. Findings: Transesophageal tube and side-port are seen terminating just below the level of the GE junction within the stomach. Surgical clips are seen projecting over the midline of the abdomen. Nonobstructive bowelgas pattern. A small amount of contrast within the thorax, incompletely imaged is likely residual ingested contrast within the thoracic portion of the stomach and is minimally changed from radiograph07/31/2021. Remainder of the contrast is seen throughout the colon and rectum. Relative to comparisonradiographs, there has been interval transit of the contrast, with contrast now seen within the descending colon and rectum. No intraperitoneal free air. No pneumatosis. No portal venous gas. Aside from mild degenerative change, no concerning osseous lesions. 1. Nonobstructive bowel gas pattern, with interval transit of radiopaque contrast now present within the descending colon and rectum. Unchanged appearance of the retained contrast, likely within the thoracic portion of the stomach. 2. Transesophageal tube and side-port are just below the level of the GE junction. I have personally reviewed the images and the above interpretation and agree with the findings. XR CHEST PORTABLE 1 VIEW Result Date: 07/31/2021 XR CHEST PORTABLE 1 VIEW 07/31/2021 8:20 PM CLINICAL HISTORY/COMMENTS: Confirm PICC line location COMPARISON: Chest x-ray July 27, 2021, July 26, 2021, July 25, 2021. CT chest abdomen pelvis July 23, 2021. FINDINGS: Single portable AP view of the chest. Lines/tubes: The right-sided PICC line tip ends at the cavoatrial junction. An enteric tube passes into the left upper quadrant, and outside the [id number]. Soft tissues, bones and extrathoracic findings: There is a large hiatal hernia withresidual ingested contrast material in the thoracic portion of the stomach. Cardiac and mediastinalcontours: Normal. Lungs: There is atelectasis at the left lower lung related to the presence of large hiatal hernia. Pleura: No visible pleural abnormalities. 1. PICC line tip ends at the cavoatrial junction. XR OUTSIDE IMAGES BODY Result Date: 07/31/2021 This is a non-reportable exam. XR OUTSIDE IMAGES BODY Result Date: 07/27/2021 This is a non-reportable exam. XR OUTSIDE IMAGES BODY Result Date: 07/26/2021 This is a non-reportable exam. XR OUTSIDE IMAGES CHEST Result Date: 07/27/2021 This is a non-reportable exam. XR OUTSIDE IMAGES CHEST Result Date: 07/27/2021 This is a non-reportable exam. XR OUTSIDE IMAGES CHEST Result Date: 07/26/2021 This is a non-reportable exam. XR OUTSIDE IMAGES CHEST Result Date: 07/26/2021 This is a non-reportable exam. CT OUTSIDE IMAGES BODY Result Date: 07/23/2021 This is a non-reportable exam. CT OUTSIDE IMAGES BODY Result Date: 07/23/2021 This is a non-reportable exam. FL UGI WO AIR W RAILROAD BRAKE OPERATOR Result Date: 08/01/2021 FL UGI WO AIR W RAILROAD BRAKE OPERATOR 08/01/2021 9:35 AM Signs and Symptoms/Comments: History of paraesophageal hernia with obstruction - please evaluate if there is contrast flow through the gastric body to the duodenum. Comparison: Abdominal radiograph 08/01/2021, aside CT abdomen pelvis 07/23/2021 Technique: Single contrast views of the thoracic esophagus and stomach were initially obtained with water soluble contrast, and subsequently single-contrast views of the thoracic esophagus, stomach, and duodenal bulb and sweep were obtained with thin barium. The patient was able to tolerate oral intake of contrast. Findings: Inspector Multifocal Lens KUB demonstrates a large air and contrast-filled paraesophageal hernia. The side-portof the transesophageal tube is below the GE junction. The tip of the partially imaged central venous catheter approaches the upper cavoatrial junction. There is residual contrast in the colon. Surgical clips project over the lumbar spine. Study shows a normally-distensible thoracic esophagus. Thereis a complex paraesophageal hernia which demonstrates gastroesophageal junction below the level of the diaphragm. The gastric fundus is below level of the diaphragm. The gastric body reenters the esophageal hiatus and lies above the diaphragm. The duodenal bulb and sweep are below the level of the diaphragm. 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 There is slow transit of contrast from the herniated portion of the gastric fundus into the supradiaphragmatic proximal duodenum with ultimate passage of contrast below the diaphragmatic hiatus. I have personally reviewed the images and the above interpretation and agree with the findings. FL OUTSIDE IMAGES Result Date: 08/07/2021 This is a non-reportable exam. Last Lab Results at Discharge BUN: Lab Results Component Value Date BUN 55 (H) 08/11/2021 Creatinine: Lab Results Component Value Date CREATININE 2.30 (H) 08/11/2021 CBC: Lab Results Component Value Date WBC 5.86 08/11/2021 RBC 3.04 (L) 08/11/2021 HGB 9.3 (L) 08/11/2021 HCT 27.6 (L) 08/11/2021 MCV 91 08/11/2021 MCH 30.6 08/11/2021 MCHC 33.7 08/11/2021 PLT 188 08/11/2021 DIFFTYPE Auto 08/11/2021 Electrolytes: Lab Results Component Value Date NA 136 08/11/2021 K 4.6 08/11/2021 CL 101 08/11/2021 CO2 24 08/11/2021 Discharge Follow Up Follow-up appointments and procedures Appointment Discharge Instructions Please call the General Surgery clinic at [phone] if you have any questions for Dr. Lee. Please schedule a follow up in 2-3 weeks. Authorizing Provider: Sanjuana Gaona, [employer] Please notify your doctor for the following symptoms: Chest pain (angina) Dizziness or fainting Decreased urine output Fever greater than 101 or chills Inability to swallow or increasing difficulty swallowing Increased or new pain Nausea or vomiting Pain unrelieved by medication Recurrence of symptoms that brought you to the hospital Severe or increasing headache Shortness of breath or rapid breathing Skin rash Signs of infection such as pain, redness, swelling or drainage at procedure or wound site Swelling in your legs Authorizing Provider: Sanjuana Gaona NP Quality Discharge Instructions We are currently collecting quality data on patients having surgery. You may receive a phone call, email, and/or letter about your surgery asking you a series of follow up questions to evaluate specifics aspects of your care. Thank you for your participation. Authorizing Provider: Sanjuana Gaona NP Quality Discharge Instructions We are currently collecting quality data on patients having surgery. You may receive a phone call, email, and/or letter about your surgery asking you a series of follow up questions to evaluate specifics aspects of your care. Thank you for your participation. Authorizing Provider: Sanjuana Gaona NP Amb Consult/Follow Up General Surgery/Colorectal Surgery Scheduling Comments (optional - describe specific scheduling needs if applicable): 10 days after discharge Reason for Request: s/p partial reduction of PEH at OSH, discharged to home on FLD, follow up for preop for definitive surgery Authorizing Provider: Ashlie Greene MD Serena Murphy, MD 08/11/2021 11:43 General Surgery PGY-5 Pager [phone] documented in this encounter Medications at Time of Discharge Medication Sig Dispensed Refills Start Date End Date allopurinoL (ZYLOPRIM) 100 mg tablet Take 100 mg by mouth daily. metoprolol TARtrate (LOPRESSOR) 25 mg tablet Take 0.5 Tablets by mouth 2 times daily. 30 Tablet 4 08/11/2021 omeprazole (PRILOSEC) 20 mg capsule Take 40 mg by mouth every morning. 10/21/2021 traMADol (ULTRAM) 50 mg tablet Take 1 Tablet by mouth every 6 hours as needed for Pain. Daily Max: 200 mg 20 Tablet 08/11/2021 08/19/2021 documented as of this encounter Ordered Prescriptions Prescription Sig Dispensed Refills Start Date End Da te metoprolol TARtrate (LOPRESSOR) 25 mg tablet Take 0.5 Tablets by mouth 2 times daily. 30 Tablet 4 08/11/2021 metoprolol TARtrate (LOPRESSOR) 25 mg tablet Take 0.5 Tablets by mouth 2 times daily. 30 Tablet 3 08/11/2021 08/11/2021 traMADol (ULTRAM) 50 mg tablet Take 1 Tablet by mouth every 6 hours as needed for Pain. Daily Max: 200 mg 20 Tablet 08/11/2021 08/19/2021 oxyCODONE (ROXICODONE) 5 mg immediate release tablet Take 1 Tablet by mouth every 6 hours as needed for Pain. Daily Max: 20 mg 10 Tablet 08/10/2021 08/11/2021 pantoprazole (PROTONIX) 40 mg tablet Take 1 Tablet by mouth daily before breakfast for 30 days. 30 Tablet 2 08/11/2021 08/11/2021 documented in this encounter Discharge Disposition Disposition Code Departure Means Destination Home or Self Skilled Nursing documented in this encounter Progress Notes * Lia Willis - 08/11/2021 1232 EDT SOCIAL WORK PROGRESS NOTE: Pt medically cleared to in home with no CM needs- provide ride at in. Natalie Willis LMSW Manager Speech II Pager: [phone] * Tomy Dewitt MD - 08/11/2021 0653 EDT Surgery Progress Note Admit Date: 07/31/2021 Hospital Day: LOS: 10 days Date of Service: 08/11/2021 Chief Complaint/Procedure: PEH; Transferred from [facility] 24 Hr Events: - No acute events overnight. Tolerating tramadol well. Had 2 boosts yesterday but getting a good amount of calories with yogurt, ice cream and now starting to have eggs and cottage cheese. Subjective: Feeling well. Slept well. Having good pain control with tramadol. Reflux improving with current diet. Objective/Physical Exam: Vital Signs: BP (!) 134/92 (BP Cuff Location: Right arm, BP Patient Position: Semi fowlers) Pulse72 Temp 36.6 ??C (97.8 ??F) (Oral) Resp 16 Ht 167.6 cm (66) Wt 69.1 kg (152 lb 6.4 oz) SpO2 95% BMI 24.60 kg/m?? Intake/Output: I&O By Type - 3 Shifts Including Current In: 440 [P.O.:440] Out: - (Inaccurate) Exam: General: No acute distress, very pleasant Pulmonary: Non labored breathing on room air, CTAB Abdomen: Soft, nontender, nondistended; incisions c/d/i Extremities: WWP Is PICC or CVL present?: Yes, RUE PICC Labs: CBC: Recent Labs 08/09/21 0513 08/10/21 0556 08/11/21 0555 WBC 7.59 6.38 5.86 HGB 8.9* 9.7* 9.3* HCT 26.3* 28.3* 27.6* MCV 91 90 91 PLT 209 204 188 BMP: Recent Labs 08/09/21 0513 08/10/21 0556 08/11/21 0554 NA 138 139 136 K 4.4 4.7 4.6 CL 104 101 101 CO2 22 23 24 BUN 59* 58* 55* CREATININE 2.05* 2.30* 2.30* MG 2.0 1.9 1.8 PHOS 3.8 4.7* 4.6* CALCIUM 9.7 9.8 9.2 SERGLU 109* 97 89 LFTs: Recent Labs 08/09/21 0513 08/10/21 0556 08/11/21 0554 ALT 16 17 16 AST 18 20 19 ALKPHOS 67 75 68 TBIL <0.5 <0.5 <0.5 TP 6.2* 6.7 6.2* LABALBU 3.7 4.2 3.8 Assessment: Mathew Mendez is a 66-year-old male with history of paraesophageal hernia, hypertension, GERD, CKD 4,and diverticulitis (status post small bowel resection, colostomy, and subsequent colostomy reversal) who presents as a transfer from [facility] after presenting with acute onset abdominal pain secondary to an incarcerated paraesophageal hernia. He was taken to the OR on 07/24 for anexploratory laparotomy, lysis of adhesions, reduction of his gastric contents, and suture gastropexy. Transferred to [facility] due to ongoing symptoms with imaging showing a non reduced PEH. UGI showed passage of contrast through the stomach into the small bowel and subsequent films showed progression ofcontrast into the bowel. Working on patient tolerance of full liquid diet in order to discharge to home safely with adequate nutritional supplementation (insurance does not cover TPN). Will plan to bring back in 6 weeks for definitive PEH. Continue to work on diet advancement. Currently on full liquid diet with some toleration. Will DC TPN today. Plan: Pain: Well controlled on current regimen. Tylenol, Dilaudid CV: Stable. Continue metoprolol. Resp: No active issues, encourage IS. GI: full liquid diet with eggs and cottage cheese, pantoprazole BID. Ok for tums prn; plan for 4 boosts today, continue calorie count; No TPN; plan for discharge today : Urinating without issue F/E/N: On TPN. Full liquid diet. Let TPN and do no reorder for today. Endo: No active issues. Heme: CBC stable from yesterday. Trend labs daily. ID: Afebrile, no active issues. VTE Prophylaxis: Ambulation, SCD's, Heparin 5000 units SQ Tid Disposition: D/C home once taking in sufficient calories for safe discharge Tomy Dewitt MD 08/11/2021 6:53 General Surgery PGY-3 Pager [phone] * Lia Willis - 08/10/2021 1437 EDT SOCIAL WORK PROGRESS NOTE: Per MD team pt may be medically ready to dc home with tomorrow Friday 08/11 on full liquid diet. Pt has no CM needs that would prevent dc. SW CM will continue to follow and will continue to assist with a safe d/c when medically cleared. Natalie Willis LMSW Manager Speech II Pager: [phone] * Shannan Patel RD - 08/10/2021 1402 EDT Nutrition Assessment Note: Reassessment Patient Name: Mathew Mendez Admission Date: 07/31/2021 Admission Dx: Paraesophageal hernia Reason for Visit: Parenteral Nutrition and Follow Up BACKGROUND DATA Clinical Course Since Last RD Visit: Last RD visit:08/07 NFPE: 08/01 24 Hr Events: - No acute events overnight. TPN discontinued. Subjective: Per pt. Appetite somewhat low today, he is pacing his intake, avoiding large volumes of food/beverage at once. He was able to drink 3 boost plus yesterday, this morning consumed milk, cream of wheat and syrup and a boost plus, will have another meal soon. Has had some reflux that resolved with tums No BM today, he would like to avoid constipation, plans to limit bowel medications d/t concern of constipation which will decrease appetite and may worsen reflux. Receptive to high protein nutrition education Current Nutrition Orders: Full liquid diet with boost plus~ aim for 4 boost plus per day Today: these foods added cottage cheese, cheese omelet, Physical Findings: Digestive Systems: Last BM: + BM yesterday Abdomen: Soft, nontender, nondistended; incisions c/d/i Skin: incision CDI Edema: none Anthropometrics: Height: 167.6 cm (66) Wt Readings from Last 6 Encounters: 08/10/21 69.1 kg (152 lb 6.4 oz) Weights Filed This Admission 08/01/21 1100 08/03/21 0956 08/10/21 0534 Weight: 69 kg (152 lb 1.9 oz) 69.7 kg (153 lb 9.6 oz) 69.1 kg (152 lb 6.4 oz) Weight Change: stable Pertinent Medications: Current Facility-Administered Medications Medication Route Frequency ??? calcium carbonate (TUMS) 200 mg calcium (500 mg) per chewable tablet tablet,chewable 2 Tablet oral QID PRN ??? heparin injection 5,000 Units subcutaneous Q8H ??? metoprolol TARtrate (LOPRESSOR) tablet 12.5 mg oral BID ??? ondansetron (PF) (ZOFRAN) injection 4 mg intravenous Q4H PRN ??? pantoprazole (PROTONIX) tablet 40 mg oral DAILY BEFORE BREAKFAST ??? traMADol (ULTRAM) tablet 50 mg oral Q6H PRN Pertinent Labs: Relevant Labs: Lab Results Component Value Date WBC 6.38 08/10/2021 RBC 3.14 (L) 08/10/2021 HGB 9.7 (L) 08/10/2021 HCT 28.3 (L) 08/10/2021 MCV 90 08/10/2021 MCH 30.9 08/10/2021 PLT 204 08/10/2021 NA 139 08/10/2021 K 4.7 08/10/2021 CL 101 08/10/2021 CO2 23 08/10/2021 BUN 58 (H) 08/10/2021 CREATININE 2.30 (H) 08/10/2021 CALCIUM 9.8 08/10/2021 MG 1.9 08/10/2021 PHOS 4.7 (H) 08/10/2021 Lab Results Component Value Date/Time GLUCOSEPOC 99 08/10/2021 05:59 GLUCOSEPOC 116 (H) 08/09/2021 05:15 GLUCOSEPOC 98 08/06/2021 06:32 GLUCOSEPOC 95 08/05/2021 14:09 GLUCOSEPOC 96 08/04/2021 05:06 No results found for: ZINCMZN, COPPER, THIAMINE, FOLATE, [id number], METMMETHY, VITEALPH, RETINOL, VITD Lab Results Component Value Date/Time ALT 17 08/10/2021 05:56 AST 20 08/10/2021 05:56 ALKPHOS 75 08/10/2021 05:56 TBIL <0.5 08/10/2021 05:56 TRIG 196 08/07/2021 05:12 Estimated Nutrition Needs: 7012-6640 lakshmi (BEE x 1.2-1.3) 87 gm pro (1.25/kg) Estimated Nutrition Intake: Calorie count results: 08/09: 38 gram protein and 1360 calories in one meal, one snack and two boost plus 08/08: 30 gram protein and 850 calories in two meals and 2 boost plus 08/07: 19 gram protein and 770 calories in two meals (includes boost plus) ASSESSMENT: Weight noted to be stable this admission, continue to monitor following d/c to home. Pt. Now ordered for full liquid diet, he is willing to include high protein soft solid foods today such as eggs and cottage cheese. Heart burn seems to be lessening making eating a bit easier. Appetite not great today. Calorie count indicates pt was able to consume 44% protein needs and 80% calorieneeds in one meal, one snack and 2 boost plus. Pt. Is now ordered for eggs and cottage cheese, believe he will be able to meet 100% estimated calorie and proteins need with the inclusion of these foods. Pt. Agreeable to continuing to consume boost plus. Provided pt. With and reviewed list of very soft high protein foods. Pt. Has list at the beside. Provided information on protein supplement, wheypowder, and encouraged pt. To add a tablespoon to foods at least bid to increase protein intake. Encouraged pt. To consume boost plus post d/c also can make home made shakes/smoothies with addition of protein powder. Pt. Was advised to weigh him self every few days with goal of stable weight. Pt. Appeared to understand need to eat well and maintain weight in order to optimize nutrition status prior to next surgery. All questions addressed. Pt. Continues to stay sitting up after meals/snacks/beverages to lessen heartburn. He . He was advised to eat very slowly to see if slow intake aids in lessening heart burn. Monitor for diet advance. Nutrition Risk Level: High (1) MEDICAL NUTRITION THERAPY - UPDATED PLAN Diet as ordered: Encourage pt. To eat slowly Encourage intake of 3-4 boost plus per day if he tolerates Encourage intake of protein dense foods such as cottage cheese and eggs Pt. Was provided with list of high protein food for home, advised to use protein powder (purchase at grocery store) Nutrition education complete Ongoing monitor and follow up Shannan Patel RD, CD (Call [facility] or use [employer] to page RD covering this unit) * Tomy Dewitt MD - 08/10/2021 0718 EDT Surgery Progress Note Admit Date: 07/31/2021 Hospital Day: LOS: 9 days Date of Service: 08/10/2021 Chief Complaint/Procedure: PEH; Transferred from [facility] 24 Hr Events: - No acute events overnight. TPN discontinued. Subjective: Rena Lara great in the last 24 hours. Completely drank 2 boosts shakes, yogurt, ice cream and orange juice for which he tolerated well. Denying abdominal pain or nausea this morning. Had some TUMS which relieved some reflux. Objective/Physical Exam: Vital Signs: BP 136/88 (BP Cuff Location: Left arm, BP Patient Position: Sitting) Pulse 78 Temp36.1 ??C (97 ??F) (Tympanic) Resp 16 Ht 167.6 cm (66) Wt 69.1 kg (152 lb 6.4 oz) SpO2 98% BMI 24.60 kg/m?? Intake/Output: I&O By Type - 3 Shifts Including Current In: 1400 [P.O.:1400] Out: - (Inaccurate) Exam: General: No acute distress, very pleasant Pulmonary: Non labored breathing on room air, CTAB Abdomen: Soft, nontender, nondistended; incisions c/d/i Extremities: WWP Is PICC or CVL present?: Yes, RUE PICC Labs: CBC: Recent Labs 08/08/21 0604 08/09/21 0513 08/10/21 0556 WBC 6.05 7.59 6.38 HGB 8.7* 8.9* 9.7* HCT 27.1* 26.3* 28.3* MCV 93 91 90 PLT 206 209 204 BMP: Recent Labs 08/08/21 0604 08/09/21 0513 [...] 6.2* 6.2* 6.7 LABALBU 3.7 3.7 4.2 Assessment: Mathew Mendez is a 66-year-old male with history of paraesophageal hernia, hypertension, GERD, CKD 4,and diverticulitis (status post small bowel resection, colostomy, and subsequent colostomy reversal) who presents as a transfer from [facility] after presenting with acute onset abdominal pain secondary to an incarcerated paraesophageal hernia. He was taken to the OR on 07/24 for anexploratory laparotomy, lysis of adhesions, reduction of his gastric contents, and suture gastropexy. Transferred to [facility] due to ongoing symptoms with imaging showing a non reduced PEH. UGI showed passage of contrast through the stomach into the small bowel and subsequent films showed progression ofcontrast into the bowel. Working on patient tolerance of full liquid diet in order to discharge to home safely with adequate nutritional supplementation (insurance does not cover TPN). Will plan to bring back in 6 weeks for definitive PEH. Continue to work on diet advancement. Currently on full liquid diet with some toleration. Will DC TPN today. Plan: Pain: Well controlled on current regimen. [...] taking in sufficient calories for safe discharge Tomy Dewitt MD 08/10/2021 7:18 General Surgery PGY-3 Pager [phone] * Ashlie Greene MD - 08/09/2021 5760 EDT Surgery Progress Note Admit Date: 07/31/2021 Hospital Day: LOS: 8 days Date of Service: 08/09/2021 Chief Complaint/Procedure: PEH; Transferred from [facility] 24 Hr Events: - NAEON Subjective: Didn't sleep that well for no particular reason, per patient. States that his pain is manageable and that his reflux symptoms are minimal. Tied yogurt and several puddings yesterday with no issues. Tolerated his first Boost Plus as well with no issues. Denies fevers, chills, chest pain, SOB, nauseaor vomiting. Objective/Physical Exam: Vital Signs: BP (!) 148/89 (BP Cuff Location: Left arm, BP Patient Position: Semi fowlers) Pulse 72 Temp 36.3 ??C (97.3 ??F) (Tympanic) Resp 18 Ht 167.6 cm (66) Wt 69.7 kg (153 lb 9.6 oz) SpO2 98% BMI 24.79 kg/m?? Intake/Output: I&O By Type - 3 Shifts Including Current In: 2039 [P.O.:490; I.V.:167; TPN:1217; IV Piggyback:166] Out: - (Inaccurate) Exam: General: No acute distress, very pleasant Pulmonary: Non labored breathing on room air, CTAB Abdomen: Soft, nontender, nondistended; incisions c/d/i Extremities: WWP Is PICC or CVL present?: Yes, RUE PICC Labs: CBC: Recent Labs 08/07/21 0508/08/21 0604 08/09/21 0513 WBC 5.83 6.05 7.59 HGB 8.4* 8.7* 8.9* HCT 25.5* 27.1* 26.3* MCV 93 93 91 PLT 204 206 209 BMP: Recent Labs 08/07/2151108/08/21 0604 08/09/21 0513 NA 136 138 138 K 4.7 4.7 4.4 CL 106 106 104 CO2 21* 19* 22 BUN 54* 56* 59* CREATININE 2.04* 2.17* 2.05* MG 2.1 2.0 2.0 PHOS 4.1 4.4 3.8 CALCIUM 9.1 9.5 9.7 SERGLU 115* 114* 109* LFTs: Recent Labs 08/07/21 0508/08/21 0604 08/09/21 0513 ALT 14 16 16 AST 19 20 18 ALKPHOS 60 66 67 TBIL <0.5 <0.5 <0.5 CONJBILI 0.0 -- -- UNCONJBILI 0.0 -- -- TP 5.9* 6.2* 6.2* LABALBU 3.5 3.7 3.7 Assessment: Mathew Mendez is a 66-year-old male with history of paraesophageal hernia, hypertension, GERD, CKD 4,and diverticulitis (status post small bowel resection, colostomy, and subsequent colostomy reversal) who presents as a transfer from [facility] after presenting with acute onset abdominal pain secondary to an incarcerated paraesophageal hernia. He was taken to the OR on 07/24 for anexploratory laparotomy, lysis of adhesions, reduction of his gastric contents, and suture gastropexy. Transferred to [facility] due to ongoing symptoms with imaging showing a non reduced PEH. UGI showed passage of contrast through the stomach into the small bowel and subsequent films showed progression ofcontrast into the bowel. Working on patient tolerance of full liquid diet in order to discharge to home safely with adequate nutritional supplementation (insurance does not cover TPN). Will plan to bring back in 6 weeks for definitive PEH. Continue to work on diet advancement. Currently on full liquid diet with some toleration. Will DC TPN today. Plan: Pain: Well controlled on current regimen. [...] taking in sufficient calories for safe discharge Ashlie Greene MD 08/09/2021 7:50 General Surgery PGY-5 Pager [phone] * Lia Willis - 08/08/2021 1022 EDT SOCIAL WORK PROGRESS NOTE: Pt does not meet Medicare guidelines criteria for home TPN. MD team aware. Please refer back to 08/05 from [facility] Infusion pharmacy. Natalie Willis [facility] Manager Speech II Pager: [phone] * Ford Villa MD - 08/08/2021 0916 EDT Surgery Progress Note Admit Date: 07/31/2021 Hospital Day: LOS: 7 days Date of Service: 08/08/2021 Chief Complaint/Procedure: PEH; Transferred from [facility] 24 Hr Events: - NAEON Subjective: Reports That he has been doing great, tolerating fulls with nutrition boost, denies nausea or emsis, very motivated, up and walking. Objective/Physical Exam: Vital Signs: BP 139/80 (BP Cuff Location: Left arm, BP Patient Position: Semi fowlers) Pulse 76 Temp 36.6 ??C (97.9 ??F) (Rectal) Resp 18 Ht 167.6 cm (66) Wt 69.7 kg (153 lb 9.6 oz) [id number]% BMI 24.79 kg/m?? Intake/Output: I&O By Type - 3 Shifts Including Current In: 93 [I.V.:30; IV Piggyback:63] Out: - (Inaccurate) Exam: General: No acute distress, very pleasant Pulmonary: Non labored breathing on room air, CTAB Abdomen: Soft, nontender, nondistended; incisions c/d/i Extremities: WWP Is PICC or CVL present?: Yes, RUE Labs: CBC: Recent Labs 08/06/21 0609 08/07/21 0512 08/08/21 0604 WBC 6.86 5.83 6.05 HGB 8.4* 8.4* 8.7* HCT 25.2* 25.5* 27.1* MCV 96* 93 93 PLT 200 204 206 BMP: Recent Labs 08/06/21 0744 08/07/21 0512 08/08/21 0604 NA 138 136 138 K 4.8 4.7 4.7 CL 104 106 106 CO2 21* 21* 19* BUN 55* 54* 56* CREATININE 2.17* 2.04* 2.17* MG -- 2.1 2.0 PHOS -- 4.1 4.4 CALCIUM 9.6 9.1 9.5 SERGLU 102* 115* 114* LFTs: Recent Labs 08/06/21 0744 08/07/21 0512 08/08/21 0604 ALT 15 14 16 AST 21 19 20 ALKPHOS 70 60 66 TBIL <0.5 <0.5 <0.5 CONJBILI -- 0.0 -- UNCONJBILI -- 0.0 -- TP 6.8 5.9* 6.2* LABALBU 4.1 3.5 3.7 Assessment: Mathew Mendez is a 66-year-old male with history of paraesophageal hernia, hypertension, GERD, CKD 4,and diverticulitis (status post small bowel resection, colostomy, and subsequent colostomy reversal) who presents as a transfer from [facility] after presenting with acute onset abdominal pain secondary to an incarcerated paraesophageal hernia. He was taken to the OR on 07/24 for anexploratory laparotomy, lysis of adhesions, reduction of his gastric contents, and suture gastropexy. Continue to work on diet advancement. Currently on full liquid diet with some toleration. Continue TPN. Plan: Pain: Well controlled on current regimen. [...] once gets insurance approval of home TPN Ford Villa MD 08/08/2021 9:16 PGY-3 * Shannan Patel, RD - 08/07/2021 1338 EDT Nutrition Assessment Note: Reassessment Patient Name: Mathew Mendez Admission Date: 07/31/2021 Admission Dx: Paraesophageal hernia Reason for Visit: Parenteral Nutrition BACKGROUND DATA Clinical Course Since Last RD Visit: Last RD visit:08/05 NFPE: 08/01 24 Hr Events: - Tolerating small amounts of clears. Continuing to pass gas and have bowel movements. Complaining of reflux but not severe enough to take TUMS. Subjective: Per pt. Has OJ but unable to drink this because of reflux. States once I have reflux that is it for the day! can't eat for the rest of the day. He has tried boost plus, did ok with the first container, developed reflux with the second container. Drank 8 oz boost plus over 1/2 hour. May try yogurt or pudding today. Was encouraged to re try boost plus but slow consumption to one ozever 10-15 minutes (or over greater than one hour) or try 4 oz over 30 minutes, take a break then consume another 4 oz over 30 minute. Pt. Willing to try Mathew is sitting up after eating or drinking He is walking frequently Per [employer], pt. To return for surgery in 6-8 weeks. Current Nutrition Orders: Full liquid diet with boost plus Current TPN order: 1.8 liters over 16 hours 105 gram Amino acid per day 225 gram dextrose per day Lipid: 250 ml 20% fat emulsion daily Provides: 1685 calories per day Physical Findings: Digestive Systems: Last BM: + BM today Abdomen: Soft, nontender, nondistended; incisions c/d/i Skin: incision CDI Edema: none Anthropometrics: Height: 167.6 cm (66) Wt Readings from Last 6 Encounters: 08/03/21 69.7 kg (153 lb 9.6 oz) Weight Change: no known Pertinent Medications: Current Facility-Administered Medications Medication Route Frequency ??? Adult Parenteral Nutrition central line ADULT CYCLE ??? calcium carbonate (TUMS) 200 mg calcium (500 mg) per chewable tablet tablet,chewable 2 Tablet oral QID PRN ??? fat emulsion 20 % infusion 250 mL intravenous CONTINUOUS ??? heparin injection 5,000 Units subcutaneous Q8H ??? HYDROmorphone (PF) (DILAUDID) 0.5 mg/0.5 mL syringe 0.5 mg intravenous Q4H PRN ??? metoprolol TARtrate (LOPRESSOR) 5 mg in sodium chloride (NS) 0.9 % 50 mL IVPB intravenous Q6H ??? ondansetron (PF) (ZOFRAN) injection 4 mg intravenous Q4H PRN ??? pantoprazole (PROTONIX) injection 40 mg intravenous BID Pertinent Labs: Relevant Labs: Lab Results Component Value Date WBC 5.83 08/07/2021 RBC 2.73 (L) 08/07/2021 HGB 8.4 (L) 08/07/2021 HCT 25.5 (L) 08/07/2021 MCV 93 08/07/2021 MCH 30.8 08/07/2021 PLT 204 08/07/2021 NA 136 08/07/2021 K 4.7 08/07/2021 CL 106 08/07/2021 CO2 21 (L) 08/07/2021 BUN 54 (H) 08/07/2021 CREATININE 2.04 (H) 08/07/2021 CALCIUM 9.1 08/07/2021 MG 2.1 08/07/2021 PHOS 4.1 08/07/2021 Lab Results Component Value Date/Time GLUCOSEPOC 98 08/06/2021 06:32 GLUCOSEPOC 95 08/05/2021 14:09 GLUCOSEPOC 96 08/04/2021 05:06 GLUCOSEPOC 92 08/03/2021 05:44 GLUCOSEPOC 115 (H) 08/02/2021 04:46 No results found for: ZINCMZN, COPPER, THIAMINE, FOLATE, [id number], METMMETHY, VITEALPH, RETINOL, VITD Lab Results Component Value Date/Time ALT 14 08/07/2021 05:12 AST 19 08/07/2021 05:12 ALKPHOS 60 08/07/2021 05:12 TBIL <0.5 08/07/2021 05:12 TRIG 196 08/07/2021 05:12 Estimated Nutrition Needs: [id number] lakshmi (BEE x 1.2-1.3) 87 gm pro (1.25/kg) Estimated Nutrition Intake: TPN and lipid meet calorie and protein needs. ASSESSMENT: Pt. Now ordered for full liquid diet, he planning on trying a soft solid food today such as yogurt.Pt. Identifies heart burn following eating as barrier to eating more/adequately. He is staying sitting up after meals/snacks/beverages to see if heartburn abates. He was able to drink a boost plus the other day, found he had heart burn after the second boost plus. He was advised to eat very slowly to see if slow intake as described in subjective aids in lessening heart burn. Currently he is taking mostly fluids, just advanced to full liquid diet today. Calorie count 08/08-08/10 to assess actual intake. TPN and lipid as primary source nutrition at this time. Consider running TPN over 12 hours to allowmore time off of pump/IV pole which will enable more movement. Increasing BUN noted in this pt. With CKD 4, decrease Amino acid in next TPN order. Need weight to assess adequacy of calories in TPN. Next TPN: provides: 1749 calories per day (25 kcal/kg) 1.25 gram protein per day and 5 mg dextrose per kg per minute of 12 hour infusion. If pt. Is able to drink will can consider decreasing TPN volume. Electrolyte content of TPN appropriately adjusted based on daily labs. LFT & TG wnl so far indication tolerance to TPN And lipid solution. Trend weight with goal of stable weight Monitor for diet advance. Nutrition Risk Level: High (1) MEDICAL NUTRITION THERAPY - UPDATED PLAN Monitor for diet advance~ Calorie count has been ordered 08/08- Encourage pt. To eat slowly Should take > 1 hour to consume 8 oz boost plus Encourage intake of 3-4 boost plus per day if he tolerates Next TPN order: 1.8 liters over 12 hours, rates:80 ml/h x 1 hour, 164 x 10 hours, 80 ml/h x 1 hour then off 12 hours 87 gram Amino acid per day, 265 gram dextrose per day Additives: MVI, trace elements Lipid: 250 ml 20% intralipid at 20.8 ml/h over 12 hours concurrent with TPN Adjust electrolyte content of TPN based on daily labs Weigh pt. Next time OOB Ongoing monitor and follow up Shannan Patel RD, CD (Call PAS or use [employer] to page RD covering this unit) * Ollie Lee MD - 08/07/2021 0747 EDT Surgery Progress Note Admit Date: 07/31/2021 Hospital Day: LOS: 6 days Date of Service: 08/07/2021 Chief Complaint/Procedure: PEH; Transferred from [facility] 24 Hr Events: - Tolerating small amounts of clears. Continuing to pass gas and have bowel movements. Complaining of reflux but not severe enough to take TUMS. Objective/Physical Exam: Vital Signs: BP (!) 119/93 (BP Cuff Location: Left arm, BP Patient Position: Sitting) Pulse 76 Temp 36.7 ??C (98.1 ??F) (Oral) Resp 18 Ht 167.6 cm (66) Wt 69.7 kg (153 lb 9.6 oz) SpO2 99% BMI 24.79 kg/m?? Intake/Output: I&O By Type - 3 Shifts Including Current In: 240 [P.O.:240] Out: - (Inaccurate) Exam: General: No acute distress, sitting up on side of bed Pulmonary: Non labored breathing on room air Abdomen: Soft, nontender, nondistended; incisions c/d/i Extremities: WWP Is PICC or CVL present?: Yes, RUE Labs: CBC: Recent Labs 08/05/21 0530 08/06/21 0609 08/07/21 0512 WBC 5.96 6.86 5.83 HGB 8.4* 8.4* 8.4* HCT 26.2* 25.2* 25.5* MCV 94 96* 93 PLT 199 200 204 BMP: Recent Labs 08/05/21 0531 08/06/21 0609 08/06/21 0744 08/07/21 0512 NA 138 134* 138 136 K 4.2 5.8* 4.8 4.7 CL 98 102 104 106 CO2 28 20* 21* 21* BUN 51* 51* 55* 54* CREATININE 2.24* 2.05* 2.17* 2.04* MG 2.1 2.4 -- 2.1 PHOS 3.8 4.4 -- 4.1 CALCIUM 9.2 9.6 9.6 9.1 SERGLU 109* 527* 102* 115* LFTs: Recent Labs 08/06/21 0609 08/06/21 0744 08/07/21 0512 ALT 13 15 14 AST 20 21 19 ALKPHOS 46 70 60 TBIL <0.5 <0.5 <0.5 CONJBILI -- -- 0.0 UNCONJBILI -- -- 0.0 TP 5.4* 6.8 5.9* LABALBU 3.3* 4.1 3.5 Assessment: Mathew Mendez is a 66-year-old male with history of paraesophageal hernia, hypertension, GERD, CKD 4,and diverticulitis (status post small bowel resection, colostomy, and subsequent colostomy reversal) who presents as a transfer from [facility] after presenting with acute onset abdominal pain secondary to an incarcerated paraesophageal hernia. He was taken to the OR on 07/24 for anexploratory laparotomy, lysis of adhesions, reduction of his gastric contents, and suture gastropexy. Continue to work on diet advancement. Currently on gastric bypass clear liquid diet with some toleration. Nausea has improved, but reports some increased heartburn with boost shakes. Continuing to monitor slow diet advancement. We will continue cycling TPN. Plan: Pain: Well controlled on current regimen. Tylenol, Dilaudid CV: Stable. Continue metoprolol. Resp: No active issues, encourage IS. GI: Advance to full liquid diet, pantoprazole BID. Ok for tums prn. : Urinating without issue F/E/N: On TPN. Advance liquids by 1oz/12 hours. Cycle TPN - repeat CMP (am likely drawn of TPN line Endo: No active issues. Heme: CBC stable from yesterday. Trend labs daily. ID: Afebrile, no active issues. VTE Prophylaxis: Ambulation, SCD's, Heparin 5000 units SQ Tid Disposition: D/C home once tolerating po with supplements, pain well controlled, ambulating and voiding independently; need to speak with case management about insurance approval of home TPN Tomy Dewitt MD 08/07/2021 7:47 PGY-3 Attestation statement: I saw and examined the patient, and I discussed the patient with the resident/fellow at the time of the visit. I agree with the findings and the plan of care documented in the resident's/fellow's note. Did well tolerating clears liquids. Some hiccoughs intermittently. Will try to advance to full liquids with nutritional supplements. Continue TPN for now. Dr. Kelley covering while I'm out this week at [employer] conference. --Ollie Lee MD * Yomi Arreola MD - 08/06/2021 0443 EDT Surgery Progress Note Admit Date: 07/31/2021 Hospital Day: LOS: 5 days Date of Service: 08/06/2021 Chief Complaint/Procedure: PEH; Transferred from [facility] 24 Hr Events: - Reflux with clears Subjective: Reports that he is feeling okay this morning. Tolerated water yesterday and 1 Bouchet, however after psych improved he began having increased hiccups and heartburn. He has been walking a lot and thisseems to help his heartburn, as well as the Protonix. He is not having any nausea. He continues to pass flatus, but has not had a bowel movement. Denies any chest pain, shortness of breath, fevers, or chills. Objective/Physical Exam: Vital Signs: BP (!) 146/83 (BP Cuff Location: Left arm, BP Patient Position: Semi fowlers) Comment:rn aware Pulse 66 Temp 36.7 ??C (98 ??F) (Oral) Resp 16 Ht 167.6 cm (66) Wt 69.7 kg (153lb 9.6 oz) SpO2 97% BMI 24.79 kg/m?? Intake/Output: I&O By Type - 3 Shifts Including Current In: 1100.3 [P.O.:420; I.V.:129; TPN:501.3; IV Piggyback:50] Out: - (Inaccurate) Exam: General: No acute distress, sitting up on side of bed Pulmonary: Non labored breathing on room air Abdomen: Soft, nontender, nondistended; incisions c/d/i Extremities: WWP Is PICC or CVL present?: Yes, RUE Labs: CBC: Recent Labs 08/04/21 0457 08/05/21 0530 08/06/21 0609 WBC 6.83 5.96 6.86 HGB 9.6* 8.4* 8.4* HCT 29.4* 26.2* 25.2* MCV 93 94 96* PLT 236 199 200 BMP: Recent Labs 08/04/217 08/05/21 0531 08/06/21 0609 NA 139 138 134* K 4.6 4.2 5.8* CL 96 98 102 CO2 33* 28 20* BUN 53* 51* 51* CREATININE 2.35* 2.24* 2.05* MG 2.4 2.1 2.4 PHOS 3.9 3.8 4.4 CALCIUM 9.3 9.2 9.6 SERGLU 95 109* 527* LFTs: Recent Labs 08/04/217 08/05/21 0531 08/06/21 0609 ALT 16 14 13 AST 19 18 20 ALKPHOS 78 65 46 TBIL <0.5 <0.5 <0.5 TP 6.6 5.9* 5.4* LABALBU 4.1 3.5 3.3* Assessment: Mathew Mendez is a 66-year-old male with history of paraesophageal hernia, hypertension, GERD, CKD 4,and diverticulitis (status post small bowel resection, colostomy, and subsequent colostomy reversal) who presents as a transfer from [facility] after presenting with acute onset abdominal pain secondary to an incarcerated paraesophageal hernia. He was taken to the OR on 07/24 for anexploratory laparotomy, lysis of adhesions, reduction of his gastric contents, and suture gastropexy. Continue to work on diet advancement. Currently on gastric bypass clear liquid diet with some toleration. Nausea has improved, but reports some increased heartburn with boost shakes. Continuing to monitor slow diet advancement. We will continue cycling TPN. Plan: Pain: Well controlled on current regimen. Tylenol, Dilaudid CV: Stable. Continue metoprolol. Resp: No active issues, encourage IS. GI: Clears, pantoprazole BID. Ok for tums prn. : Urinating without issue F/E/N: On TPN. Advance liquids by 1oz/12 hours. Cycle TPN - repeat CMP (am likely drawn of TPN line Endo: No active issues. Heme: CBC stable from yesterday. Trend labs daily. ID: Afebrile, no active issues. VTE Prophylaxis: Ambulation, SCD's, Heparin 5000 units SQ Tid Disposition: D/C home once tolerating po with supplements, pain well controlled, ambulating and voiding independently YOMI ARREOLA MD 08/06/2021 8:08 General Surgery PGY-1 I will be post call today and will therefore be unable to participate in further management of thispatient today. Please contact the covering resident with questions or concerns. Associated attestation - Holli Yancey MD - 08/06/2021 0956 EDT Concerned tums may just sit in stomach and not empty well. May try maalox, but may have same issue.Reflux is likely from stomach not emptying well enough. I saw and examined the patient and discussed with the resident/medical student/[employer] team. I agree with the findings and plan of care documented in the resident's/medical student's/[employer]'s note. Holli Yancey Division of General Surgery Colon and Rectal Surgery * Efrem Alonzo RD - 08/05/2021 1048 EST Brief Nutrition Note: MD request to cycle TPN Recommend keeping volume, dextrose, and amino acids as currently ordered and start cycling TPN over16 hours. TPN to run at 60ml/hr for first hour, 120ml/hr for 14 hours, 60ml/hr for last hour. Lipids @ 15.6ml/hr x 16hours - recommend checking TG level today Efrem Alonzo RD CD [employer]/call PAS * Ashlie Greene MD - 08/05/2021 0915 EST Surgery Progress Note Admit Date: 07/31/2021 Hospital Day: LOS: 4 days Date of Service: 08/05/2021 Chief Complaint/Procedure: PEH; Transferred from [facility] 24 Hr Events: - Tolerating 2oz/hr of water Subjective: Mathew reports feeling well today. Tolerating the clears and advanced to 2oz/hr yesterday, which he feels well with. He states that lying on his right side helps a lot. Denies nausea/vomiting but does note that his reflux can cause progressive abdominal pain and that the reflux and pain are associated. Denies fevers, chills. Having flatus. Ambulating often; walked over 1 mile yesterday. Objective/Physical Exam: Vital Signs: BP (!) 129/93 Pulse 78 Temp 36.8 ??C (98.2 ??F) (Oral) Resp 18 Ht 167.6 cm (66) Wt 69.7 kg (153 lb 9.6 oz) SpO2 97% BMI 24.79 kg/m?? Intake/Output: I&O By Type - 3 Shifts Including Current In: 2039 [P.O.:480; I.V.:165; TPN:1195; IV Piggyback:200] Out: - (Inaccurate) Exam: General: No acute distress Pulmonary: Non labored breathing Abdomen: Non-tender, non-distended, soft, no rebound, no guarding; incisions clean, dry, intact, eliana not present Extremities: Warm and well perfused Is PICC or CVL present?: Yes, RUE Labs: CBC: Recent Labs 08/03/2153708/04/2145608/05/21 0530 WBC 5.81 6.83 5.96 HGB 9.7* 9.6* 8.4* HCT 28.7* 29.4* 26.2* MCV 91 93 94 PLT 223 236 199 BMP: Recent Labs 08/03/2153708/04/2145608/05/21 0531 NA 137 139 138 K 4.8 4.6 4.2 CL 98 96 98 CO2 27 33* 28 BUN 49* 53* 51* CREATININE 2.43* 2.35* 2.24* MG 2.4 2.4 2.1 PHOS 4.2 3.9 3.8 CALCIUM 9.1 9.3 9.2 SERGLU 99 95 109* LFTs: Recent Labs 08/03/2153708/04/2145608/05/21 0531 ALT 18 16 14 AST 18 19 18 ALKPHOS 75 78 65 TBIL <0.5 <0.5 <0.5 TP 6.5 6.6 5.9* LABALBU 4.0 4.1 3.5 Assessment: Mathew Mendez is a 66-year-old male with history of paraesophageal hernia, hypertension, GERD, CKD 4,and diverticulitis (status post small bowel resection, colostomy, and subsequent colostomy reversal) who presents as a transfer from [facility] after presenting with acute onset abdominal pain secondary to an incarcerated paraesophageal hernia. He was taken to the OR on 07/24 for anexploratory laparotomy, lysis of adhesions, reduction of his gastric contents, and suture gastropexy. Has attempted to advance diet over several days but continued to feel nauseous and vomits. Also noted raise in creatinine concerning for PAIGE. Now tolerated a slow progression of clear liquids. Working on safe surgery plan in 6 weeks with supplemental nutrition. Plan: Pain: Well controlled on current regimen. Tylenol, Dilaudid CV: Stable, High BP noted yesterday (08/03/21), will continue to follow. Continue metoprolol. Resp: No active issues, encourage IS. GI: NPO, pantoprazole BID. Ok for tums prn. : Urinating without issue F/E/N: On TPN. Advance liquids by 1oz/12 hours. Will disucss cycling TPN with nutrition. Endo: No active issues. Heme: Anemia likely related to chronic occult gastric bleeding. Trend labs daily. ID: Afebrile, no active issues. VTE Prophylaxis: Ambulation, SCD's, Heparin 5000 units SQ Tid Disposition: D/C home once tolerating po with supplements, pain well controlled, ambulating and voiding independently Ashlie Greene MD 08/05/2021 9:18 General Surgery PGY-5 Pager [phone] Associated attestation - Holli Yancey MD - 08/05/2021 1628 EST I saw and examined the patient and discussed with the resident/medical student/[employer] team. I agree with the findings and plan of care documented in the resident's/medical student's/[employer]'s note. Holli Yancey Division of General Surgery Colon and Rectal Surgery * Lia Willis - 08/05/2021 0805 EST Per infusion pharmacy please read below: Coverage and Benefits Estimate for Home Infusion services: Name: Mathew Mendez : 1955 Home Infusion Therapy: Parenteral Nutrition Benefits estimate completed on: 08/04/2021 [facility] PPO plan is active on a calendar year basis as of 05/27/2021. This [facility] plan follows all Medicare guidelines. Plan covers Parenteral Nutrition service based on medical necessity only when Medicare TPN guidelines are met. If Medicare guidelinesare met, plan will cover services at 80% of standard allowance, leaving the patient responsible for20% coinsurance until $5000 out of pocket limit has been reached. To date $189.05 has been met towards out of pocket limit. If documentation does not exist to support Medicare guidelines, patient will be responsible for all charges. NOTE: Medicare covers TPN therapy only when: TPN is required for MINIMUM of 3 months AND patient has one of the following conditions: - When patient had a massive small bowel resection leaving < 5 ft. small bowel beyond the ligament of Treitz, - when patient has a short bowel syndrome, - When patient must have a bowel rest for MINIMUM of 3 months due to symptomatic pancreatitis, severe exacerbation of regional enteritis, or proximal enterocutaneous fistula and tube feeding is not possible - when patient has had a complete small bowel obstruction AND surgery is not an option - Gastroparesis demonstrated by study that shows the isotope, barium or pellets failed to reach thecolon in 3-6 hr or results or manometric motility study was consistent with abnormal gastric emptying that was unresponsive to prokinetic medication Estimate is not a guarantee of coverage and coverage is not a guarantee of payment by your insurance company. Every effort is made to be sure that the information given to you today is accurate. If aconflict exists between the information provided to you and the terms of your specific plan, the terms of the plan will govern. Final determination of coverage, benefit levels and patient responsibility is made at the time the claim is received and processed by your plan for the date when your service was rendered. Please contact your insurance company for any additional information as some information will only be provided directly to beneficiary. Changes in Insurance coverage have to be reported to [facility] so timely authorizations for services can be obtained. If insurance coverage is terminated during therapy, patient should contact [facility] services at as well as Patient Assistance Program at . * Lia Willis - 08/04/2021 1450 EST SOCIAL WORK PROGRESS NOTE: Per MD team pt is not medically ready at this time- unable to safely advance diet and continue to be NPO and on TPN for nutrition management. Per MD team- pt may need to dc home on TPN at in. Will await from MD team to confirm. MIGEL MCKEON will continue to follow and will continue to assist with a safe d/c when medically cleared. Natalie Willis SAMPLE TAILOR Manager Speech II Pager: [phone] * Ollie Lee MD - 08/04/2021 0521 EST Surgery Progress Note Admit Date: 07/31/2021 Hospital Day: LOS: 3 days Date of Service: 08/04/2021 Chief Complaint/Procedure: PEH; Transferred from [facility] 24 Hr Events: - Vomited x 1 overnight Subjective: Mathew reports feeling ok today. He drank juice and ate a frozen pop yesterday which caused him to burp, hiccup and have severe heartburn. He had some epigastric pain radiating to the back and vomited in the evening. He had a bowel movement yesterday and walked 2 miles on the floor. She denies SOB orCP that radiated to the neck or arm. Objective/Physical Exam: Vital Signs: BP 115/87 (BP Cuff Location: Left arm, BP Patient Position: Semi fowlers) Pulse 82 Temp 36.1 ??C (97 ??F) (Tympanic) Resp 16 Ht 167.6 cm (66) Wt 69.7 kg (153 lb 9.6 oz) [id number]% BMI 24.79 kg/m?? Intake/Output: I&O By Type - 3 Shifts Including Current In: 1054.5 [P.O.:400; I.V.:15.3; TPN:489.3; IV Piggyback:150] Out: 200 [Urine:200] (Inaccurate) Exam: General: No acute distress Cardiovascular: Regular rate and rhythm Pulmonary: clear breath sounds bilaterally Abdomen: Non-tender, non-distended, soft, no rebound, no guarding; incisions clean, dry, intact. Extremities: Warm and well perfused Is PICC or CVL present?: Yes, RUE Labs: CBC: Recent Labs 08/02/2143808/03/21 0538 08/04/21 0457 WBC 4.40 5.81 6.83 HGB 9.3* 9.7* 9.6* HCT 27.1* 28.7* 29.4* MCV 91 91 93 PLT 203 223 236 BMP: Recent Labs 08/01/2152408/02/2143808/03/21 0538 NA 131* 134* 137 K 4.2 4.1 4.8 CL 100 100 98 CO2 18* 23 27 BUN 44* 43* 49* CREATININE 1.89* 2.10* 2.43* MG 2.3 2.2 2.4 PHOS 3.8 4.2 4.2 CALCIUM 7.4* 8.9 9.1 SERGLU 79 115* 99 LFTs: Recent Labs 08/01/2152408/02/2143808/03/21 0538 ALT 19 20 18 AST 20 21 18 ALKPHOS 69 75 75 TBIL <0.5 <0.5 <0.5 TP 5.3* 6.1* 6.5 LABALBU 3.0* 3.5 4.0 Assessment: Mathew Mendez is a 66-year-old male with history of paraesophageal hernia, hypertension, GERD, CKD 4,and diverticulitis (status post small bowel resection, colostomy, and subsequent colostomy reversal) who presents as a transfer from [facility] after presenting with acute onset abdominal pain secondary to an incarcerated paraesophageal hernia. He was taken to the OR on 07/24 for anexploratory laparotomy, lysis of adhesions, reduction of his gastric contents, and suture gastropexy. Has attempted to advance diet over several days but continued to feel nauseous and vomits. Also noted raise in creatinine concerning for PAIGE. Plan: Pain: Well controlled on current regimen. Tylenol, Dilaudid CV: Stable, High BP noted yesterday (08/03/21), will continue to follow. Continue metoprolol. Resp: No active issues, encourage IS. GI: NPO, pantoprazole : Manrique in place, will d/c once ambulating. F/E/N: On TPN. Consider adding maintenance fluids due to minimal PO intake. Endo: No active issues. Heme: Anemia likely related to chronic occult gastric bleeding. AM CBC pending. ID: Afebrile, no active issues. VTE Prophylaxis: Ambulation, SCD's, Heparin 5000 units SQ Tid Disposition: D/C home once tolerating po, pain well controlled, ambulating and voiding independently JERARDO FRAGA M3 08/04/2021 5:21 I was present with the medical student for the history, exam, medical decision making documented byhim/her. I have personally performed my own physical exam and medical decision making. I have verified and agree with (or, as indicated, have edited) the medical student's documentation. Patient did not tolerate repeat attempt at diet advancement yesterday. Had vomiting after eating a popsicle and continues to endorse persistent reflux symptoms and hiccups. Will plan to keep patient NPO and continue TPN for nutrition given inability for patient to attain any caloric intake by mouthat this time. Anticipate patient will require TPN for nutrition until able to perform definitive repair of his paraesophageal hernia which will be in at least three months from his previous surgery. Laya Pepe MD 08/04/2021 8:15 General Surgery, PGY-2R #[id number] blue surgery pager Attestation statement: I saw and examined the patient, and I discussed the patient with the resident/fellow at the time of the visit. I agree with the findings and the plan of care documented in the resident's/fellow's note. The patient had emesis, however, now feeling well. Started on clears, 1 oz per hour. Will walk afterward and then lie prone and slightly to the right. Hopefully, fluid will pass. Exploration of abdomen at this point would be very difficult due to inflammation in the peritoneal cavity. Thoracic approach would also be difficult to reduce since gastropexy would be difficult to take down from chest through hiatus. IR J-tube likely not possible since contrast may not pass adequately into jejunum. Options limited. So will keep on TPN for not. We will asess tolerance to liquids before advancing diet. Could stay on TPN for several weeks before definitive surgery. --Ollie Lee MD * Didier Mcleod, RN - 08/03/2021 1751 EST Patient doing very well first half of the day, tolerating clears. Around 2 pm, became more uncomfortable, reported increased heart burn and pain radiating to back. At 1700, pt reported vomiting in bathroom. MDs notified. * Iasc Sharma - 08/03/2021 1455 EST Spiritual Care Department Treasury Agent Note Re: Mathew Mendez : 1955 Room: [place] [address] Service: General Surgery Moravian: Jew Mathew has received a visit from the Spiritual Care Department on 08/03/2021. Assessment/Comments: Mathew spoke about his hospitalization and need for a second surgery in 3 months. He is doing well and needs to restart eating before he can go home. Treasury Agent provided a comforting presence, offered prayer and sacraments. DEMOGRAPHICS Spiritual Care Welcomed Patient Is Jain Importance Moderately Important Current Support System Spouse/Significant Other, Family/Friends Level of Support Little/No Support ENCOUNTER DATA Date of Encounter 08/03/21 Time of Encounter 1415 Reason for Encounter Initial Visit Referred by Care Level 3 - Some Matter of Substance ENCOUNTER Needs Addressed Prayer Support, Sacraments Interventions Support, Prayer, Sacraments Sacraments Provided Anointed, Communion Date of Anointing 08/03/21 Communion When Available Date of Communion 08/03/21 OUTCOME Outcome Stress Level Reduced Stress Outcome of Encounter Patient Satisfied, Continues to Process Issue CARE PLAN Plan Continued Treasury Agent Support Consult With Additional Support Was Clergy Needed? Yes, provided, Candy Separator Enrobing TIME STAMP: Total time spent 15 minutes in direct floor time; >50% of time was spent in spiritual care. ISAC SHARMA 08/03/2021 14:55 * Shannan Patel, RD - 08/03/2021 1349 EST Nutrition Assessment Note: Reassessment Patient Name: Mathew Mendez Admission Date: 07/31/2021 Admission Dx: Paraesophageal hernia Reason for Visit: Parenteral Nutrition BACKGROUND DATA Clinical Course Since Last RD Visit: Last RD visit:08/01 NFPE: 08/01 24 Hr Events: - Was advanced to full liquids yesterday, developed nausea, and epigastric fullness, was made NPO. Subjective: Reports feeling nauseous with epigastric pain and fullness following trying to eats Fulls yesterday. He has Passed gas and stool Current Nutrition Orders: Clear liquid diet Current TPN order: 1.8 liters @ 75 m/h 105 gram Amino acid per day 225 gram dextrose per day Lipid: 250 ml 20% fat emulsion daily Provides: 1685 calories per day Physical Findings: Digestive Systems: Last BM: none recorded Skin: incision CDI Edema: none Anthropometrics: Height: 167.6 cm (66) Wt Readings from Last 6 Encounters: 08/03/21 69.7 kg (153 lb 9.6 oz) Weight Change: no known Pertinent Medications: Current Facility-Administered Medications Medication Route Frequency ??? Adult Parenteral Nutrition central line ADULT NUTRITION ??? Adult Parenteral Nutrition central line ADULT NUTRITION ??? fat emulsion 20 % infusion 250 mL intravenous ADULT NUTRITION ??? heparin injection 5,000 Units subcutaneous Q8H ??? HYDROmorphone (PF) (DILAUDID) 0.5 mg/0.5 mL syringe 0.5 mg intravenous Q4H PRN ??? metoprolol TARtrate (LOPRESSOR) 5 mg in sodium chloride (NS) 0.9 % 50 mL IVPB intravenous Q6H ??? pantoprazole (PROTONIX) injection 40 mg intravenous BID Pertinent Labs: Relevant Labs: Lab Results Component Value Date WBC 5.81 08/03/2021 RBC 3.16 (L) 08/03/2021 HGB 9.7 (L) 08/03/2021 HCT 28.7 (L) 08/03/2021 MCV 91 08/03/2021 MCH 30.7 08/03/2021 PLT 223 08/03/2021 NA 137 08/03/2021 K 4.8 08/03/2021 CL 98 08/03/2021 CO2 27 08/03/2021 BUN 49 (H) 08/03/2021 CREATININE 2.43 (H) 08/03/2021 CALCIUM 9.1 08/03/2021 MG 2.4 08/03/2021 PHOS 4.2 08/03/2021 Lab Results Component Value Date/Time GLUCOSEPOC 92 08/03/2021 05:44 GLUCOSEPOC 115 (H) 08/02/2021 04:46 GLUCOSEPOC 87 08/01/2021 22:07 GLUCOSEPOC 83 08/01/2021 14:46 No results found for: ZINCMZN, COPPER, THIAMINE, FOLATE, APSRNRTM82, METMMETHY, VITEALPH, RETINOL, VITD Lab Results Component Value Date/Time ALT 18 08/03/2021 05:38 AST 18 08/03/2021 05:38 ALKPHOS 75 08/03/2021 05:38 TBIL <0.5 08/03/2021 05:38 Estimated Nutrition Needs: 1680 lakshmi (BEE x 1.2) 105 gm pro (1.5/kg) Estimated Nutrition Intake: TPN and lipid meet calorie and protein needs. ASSESSMENT: Pt. Not yet tolerating diet advance,diet was changed to clear liquid and pt. Receiving TPN and lipid as primary source nutrition. Electrolyte content of TPN appropriately adjusted based on daily labs. LFT wnl so far indication tolerance to TPN solution. Need to check triglyceride to assess tolerance to lipids. Trend weight with goal of stable weight Monitor for diet advance. Nutrition Risk Level: High (1) MEDICAL NUTRITION THERAPY - UPDATED PLAN Monitor for diet advance Nutrition to monitor intake and help with meal and supplement selection as needed TPN and lipid as ordered Adjust electrolyte content of TPN based on daily labs Please include triglyceride with next set of labs Weigh pt. Next time OOB Ongoing monitor and follow up Shannan Patel RD, CD (Call PAS or use Intelliweb to page RD covering this unit) * Ford Villa MD - 08/03/2021 0711 EST Surgery Progress Note Admit Date: 07/31/2021 Hospital Day: LOS: 2 days Date of Service: 08/03/2021 Chief Complaint/Procedure: PEH; Transferred from [facility] 24 Hr Events: - Was advanced to full liquids yesterday, developed nausea, and epigastric fullness, was made NPO. Subjective: Reports feeling nauseous with epigastric pain and fullness following trying to eats Fulls yesterday. He has Passed gas and stool, voiding without issues. Objective/Physical Exam: Vital Signs: BP 117/90 (BP Cuff Location: Left arm, BP Patient Position: Semi fowlers) Pulse 82 Temp 36.2 ??C (97.1 ??F) (Oral) Resp 18 Ht 167.6 cm (66) Wt 69 kg (152 lb 1.9 oz) SpO2 96% BMI 24.55 kg/m?? Intake/Output: I&O By Type - 3 Shifts Including Current In: 1310.8 [P.O.:120; TPN:940.8; IV Piggyback:250] Out: - Exam: General: No acute distress Cardiovascular: Regular rate and rhythm Pulmonary: clear breath sounds bilaterally Abdomen: Non-tender, non-distended, soft, no rebound, no guarding; incisions clean dry and intact eliana Extremities: Warm and well perfused Is PICC or CVL present?: Yes, RUE Labs: WBC/Hgb/Hct/Plts: 5.81/9.7/28.7/223 (08/03 537) Na/K/Cl/CO2: 137/4.8/98/27 (08/03 537) BUN/Cr/glu/ALT/AST/amyl/lip: 49/2.43/99/18/18/--/-- (08/03 537) Assessment: Mathew Mendez is a 66-year-old male with history of paraesophageal hernia, hypertension, GERD, CKD 4,and diverticulitis (status post small bowel resection, colostomy, and subsequent colostomy reversal) who presents as a transfer from [facility] after presenting with acute onset abdominal pain secondary to an incarcerated paraesophageal hernia. He was taken to the OR on 07/24 for anexploratory laparotomy, lysis of adhesions, reduction of his gastric contents, and suture gastropexy tolerating was advanced to full liquids however didn't tolerate that much. Plan: - Will discuss advancing to clears today - Reorder TPN. - Continue PICC - BID PPI - HSQ 5000 TID - Will need to DC eliana today Ford Villa MD 08/03/2021 7:11 * Didier Mcleod, LOYD - 08/02/2021 1631 EST Pt A+O x3. VSS. Reports mid epigastric pain, IV dilaudid 0.4 mg given PRN. Advanced to full liquids, tolerating. Continues on TPN/lipids. Ambulating in the el frequently, independent. Voiding qs c/y/u. Reports small BM, + flatus. COOPER HENRRY w/ eliana, c/d/i. at bedside being very supportive. Will continue to monitor and assess. * Tomy Dewitt MD - 08/02/2021 0908 EST Surgery Progress Note Admit Date: 07/31/2021 Hospital Day: LOS: 1 day Date of Service: 08/02/2021 Chief Complaint/Procedure: PEH; Transferred from [facility] 24 Hr Events: NG removed, started on clears for which he has been tolerating well. Passing gas, no bowel movements yet. Has minimal intermittent abdominal pain. WBC 4.4; H/H 9.3/27.1. Objective/Physical Exam: Vital Signs: BP 125/90 Pulse 80 Temp 36.7 ??C (98.1 ??F) Resp 18 Ht 167.6 cm (66) Wt 69 kg (152 lb 1.9 oz) SpO2 96% BMI 24.55 kg/m?? Intake/Output: I&O By Type - 3 Shifts Including Current In: 1975. [P.O.:920; I.V.:606.1; TPN:387; IV Piggyback:63] Out: 1800 [Urine:1800] Exam: General: No acute distress Cardiovascular: Regular rate and rhythm Pulmonary: Equal chest rise bilaterally Abdomen: Non-tender, non-distended, soft, no rebound, no guarding; incisions clean dry and intact eliana Extremities: Warm and well perfused Is PICC or CVL present?: Yes, RUE Labs: WBC/Hgb/Hct/Plts: 4.40/9.3/27.1/203 (08/02 438) Na/K/Cl/CO2: 134/4.1/100/23 (08/02 438) BUN/Cr/glu/ALT/AST/amyl/lip: 43/2.10/115/20/21/--/-- (08/02 438) Assessment: Mathew Mendez is a 66-year-old male with history of paraesophageal hernia, hypertension, GERD, CKD 4,and diverticulitis (status post small bowel resection, colostomy, and subsequent colostomy reversal) who presents as a transfer from [facility] after presenting with acute onset abdominal pain secondary to an incarcerated paraesophageal hernia. He was taken to the OR on 07/24 for anexploratory laparotomy, lysis of adhesions, reduction of his gastric contents, and suture gastropexy tolerating a clear liquid diet. Plan: - Full liquid diet today - Calorie count and continue TPN for now; will likely discontinue if calories met. If tolerates fulls will advance diet and discharge this week - Continue PICC - BID PPI - HSQ 5000 TID Tomy Dewitt MD 08/02/2021 9:08 * Donna Carpenter RN - 08/01/2021 1705 EST Assumed care of patient at 0700. Pt is A&Ox3, VSS. Pt rating abdominal pain 1- 3/10. Medicated with scheduled IV tylenol with adequate relief. Upper GI study completed, NG tube removed by provider. Pt started on clear liquid diet, tolerating sips of clears. Verified with Dr. Lee, TPN and lipids to start tonight. PICC to RUE. Pt voiding adequate amounts of clear, yellow urine. Ambulating independently in hallway. Pt able to make needs known. Bed in low position, call salazar in reach. * Lia Willis - 08/01/2021 0912 EST Initial Case Management/Social Work Assessment and Discharge Plan/Readmission Risk Assessment REASON FOR ADMISSION: Paraesophageal hernia Patient understands reason for admission: Yes PATIENT INFO VERIFIED: PCP, Contact Info, Address Type of housing (single family, condo, apartment, prison, single room occupancy, [facility] funded hotel room, group retirement) - Single family home Who does the patient live with? Lives with Yen Does the patient have access to their own bedroom/bathroom/kitchen - or is it shared with others? Shared with Name of housing complex (ex [facility], [facility], etc)- N/A Housing Authority/Managing Organization - N/A Community Care Providers (case planner, [facility] nurse, etc) name and contact information- N/A LIVING ARRANGEMENTS AND ACCESSIBILITY ISSUES: Living Arrangements: Private residence, Spouse / significant other Levels: 2 Stairs to enter: 3 Handicap access: Railings into home, Railings to upstairs Bathroom located on bedroom level?: Yes (1st floor bedroom and bathroom) What in home social supports are available to the patient? Family member(s), Spouse / significant other Is / care available? Yes ADVANCED DIRECTIVES, POA &/or COLST IN PLACE: Healthcare Directive: Yes, patient has advance directive for healthcare treatment Type of Healthcare Directive: Health care treatment directive Copy in Chart: Yes, new copy in paper chart @ [facility] DIRECTIVES FOR FINANCES: TRANSPORTATION: Transportation: Family, Self Transportation Additional Details: Yen can provide ride home at in Patient expects to be discharged to: home with CULTURAL, ORTHODOXY and/or LANGUAGE factors affecting health care/discharge planning: Spiritual/Cultural Requests: None Insurance Information: Medical Insurance: Yes Type of insurance: Medicare Medicare type: C ([employer] Medicare Advantage Plan) Referred to patient financial services: No Nutrition: DISCHARGE RISK ASSESSMENT: None of the above risks identified Total # selected above: Score: Zero Tentative plan to address the risk of re-hospitalization for those at HIGH MODERATE RISK: RAPT TOOL: Age: 66-75 Gender: Male Ambulation distance: 2 or more blocks (600ft) Gait device: None Community Services: Home health, MOW, SASH-none of one time a week Will you live with someone who will care for you?: Yes RAPT Tool Score: 11 Patient expects to be discharged to: home with SBIRT: SASQ (Single Alcohol Screening Question) How many times in the past year have you had 5 or more drinks in a single day?: Never How many times in the past year have you used an illegal drug or used a prescription medication fornon-medical reasons?: Never Intervention in place/initiated?: No, not indicated FUNCTIONAL STATUS: Activities patient requires assistance: None Assistive Devices: None COMMUNITY RESOURCES/SUPPORTS: Primary Care Provider: Jovani Wharton PCP Verified: Specialists: Other (colorectal, GI) Type of Home Health Services: None DME Provider: Pharmacy: [id number] - [address] [address] Home Health: Other: [facility] TRANSITION PLAN: MIGEL CM completed assessment with pt and at bedside. Pt is an AOx3 pleasant male. Pt lives in a two level home with his . Pt reports being fully independent at baseline with all ADL's and is hopeful to dc home with once he is medically cleared to dc. Pt states not having any CM needs at this time. His will provide ride home at dc and she will remainavailable and assist at dc at home. MIGEL CM will continue to follow during this admission and will remain available if dc needs arise. Natalie Willis SAMPLE TAILOR Manager Speech II Pager: [phone] LIA WILLIS 08/01/2021 9:12 * Ashlie Greene MD - 08/01/2021 0820 EST Surgery Progress Note Admit Date: 07/31/2021 Hospital Day: LOS: 1 day Date of Service: 08/01/2021 Chief Complaint/Procedure: PEH s/p 24 Hr Events: Transferred from [facility] Admitted and NGT continued to [facility] Subjective: Patient feeling alright. Not having any abdominal pain other than his incisional pain. No nausea or vomiting. Denies fevers, chills, chest pain, SOB. MAR reviewed Objective/Physical Exam: Vital Signs: BP 133/84 (BP Cuff Location: Left arm, BP Patient Position: Standing) Pulse 71 Temp 36.5 ??C (97.7 ??F) (Oral) Resp 18 Ht 167.6 cm (66) SpO2 97% Intake/Output: I&O By Type - 3 Shifts Including Current In: 975 [I.V.:815; IV Piggyback:160] Out: 1630 [Urine:1230; Emesis/NG output:400] Exam: Gen - Awake and alert, no distress Resp - Clear bilaterally, no w/c/r Cards - RRR, no mrg Abd - Upper midline incision closed with eliana - well approximated with no erythema, abdomen overall soft, non tender, non distended Ext - WWP, no edema Is PICC or CVL present?: Yes, RUE Labs: WBC/Hgb/Hct/Plts: 6.37/8.1/24.9/167 (08/01 525) Na/K/Cl/CO2: 131/4.2/100/18 (08/01 524) BUN/Cr/glu/ALT/AST/amyl/lip: 44/1.89/79/19/20/--/-- (08/01 524) Assessment: Mathew Mendez is a 66-year-old male with history of paraesophageal hernia, hypertension, GERD, CKD 4,and diverticulitis (status post small bowel resection, colostomy, and subsequent colostomy reversal) who presents as a transfer from [facility] after presenting with acute onset abdominal pain secondary to an incarcerated paraesophageal hernia. He was taken to the OR on 07/24 for anexploratory laparotomy, lysis of adhesions, reduction of his gastric contents, and suture gastropexy. Patient with ongoing signs Of partial obstruction. Will repeat UGI today. Plan: - NPO with NGT to [facility] - Repeat UGI today - Nutrition consult for TPN - Continue PICC - BID PPI - Heparin dvt ppx Ashlie Greene MD 08/01/2021 8:20 * Tiffanie Kerr RN - 07/31/20212031 EST Called to clear patients PICC line Data: Assessed patient's PICC line that was placed at [facility] in [facility]. Triple Lumen PICC to the Right Side. Action: Assessed PICC, all 3 lines flush well with brisk blood return. Non reflux valves changed. Dressing intact, on schedule to be changed this coming Wednesday 08/02 which is 7 days post placement date. Response: VAT will monitor PICC as needed per [facility] Policy. TIFFANIE KERR RN 07/31/2021 20:33 documented in this encounter H&P Notes * Ollie Lee MD - 07/31/20211926 EST Surgical H+P Admission Admit Date: 07/31/21 Date of Service: 07/31/2021 Hospital day: LOS: 0 days Chief Complaint: Abdominal pain HPI: Mathew Mendez is a 66-year-old male with history of paraesophageal hernia, hypertension, GERD, CKD 4,and diverticulitis (status post small bowel resection, colostomy, and subsequent colostomy reversal) who presents as a transfer from [facility] after presenting with acute onset abdominal pain secondary to an incarcerated paraesophageal hernia. Mathew reports that he has known about his paraesophageal hernia for roughly 5 to 6 years, but no intervention was performed due to its asymptomatic nature. He reports that over the past 3 months he has worsening flatus and burping that will last for several days and then dissipate, sharp stomach pain in the left upper quadrant that will come and go, and some associated nausea and emesis. These episodes, particularly his sharp left upper quadrant pain, were becoming more frequent and on Saturday 07/22, the pain became acutely worse and was knee buckling. He presented to [facility] on 07/23, and CT scan revealed a gastric volvulussecondary to his paraesophageal hernia. He was subsequently taken to the OR on 07/24 for exploratorylaparotomy, lysis of adhesions, reduction of his gastric contents, and suture gastropexy. Due to scarring, the stomach was unable to be fully reduced back into the abdomen. Since then, he has an NG tube for decompression and was started on TPN after PICC placement for nutrition. He underwent two bar ium studies, most recently today, which showed slow to no drainage of the barium through the stomach. At this time decision was made to transfer the patient to [facility] for further management. On arrival to floor, patient reports that his pain is well controlled. He has an NG tube in place and is passing gas. He has not had a bowel movement since the third. He denies any chest pain, shortness of breath, nausea, emesis, fevers, or chills. PMH PSH HTN, GERD, CKD4, diverticulitis 07/24 - exploratory laparotomy, lysis of adhesions, reduction of his gastric contents, and suture gastropexy Previous small bowel resection, colostomy, and colostomy reversal Social History Family history Social History Tobacco Use ??? Smoking status: Not on file Substance Use Topics ??? Alcohol use: Not on file No family history on file. Medications No medications prior to admission. Allergies Not on File Review of Systems: A ten point review of systems was performed and was negative except for pertinent positives noted in the HPI Objective/Physical Exam: VS: Patient Vitals for the past 8 hrs: BP Pulse Heart Rate Resp O2 Device 07/31/21 1905 120/88 71 71 BPM 15 None Exam: General Appearance: NAD Lung: CTAB, nonlabored on room air Heart: RRR Abdomen: Soft, nondistended, nontender to palpation Extremities: WWP Skin: Skin color, temperature, turgor normal. No rashes or lesions Incision(s)/Wound(s): Midline abdominal incision with eliana in place c/d/i with some surrounding echymosis Assessment Mathew Mendez is a 66-year-old male with history of paraesophageal hernia, hypertension, GERD, CKD 4,and diverticulitis (status post small bowel resection, colostomy, and subsequent colostomy reversal) who presents as a transfer from [facility] after presenting with acute onset abdominal pain secondary to an incarcerated paraesophageal hernia. He was taken to the OR on 07/24 for anexploratory laparotomy, lysis of adhesions, reduction of his gastric contents, and suture gastropexy. Due to extensive scarring, his gastric contents were not able to be fully reduced into his treated abdominal cavity. An NG tube was placed for outlet obstruction and he was subsequently [facility] further care after repeat barium studies showed no improvement in motility of contrast. Currently hemodynamically stable with minimal pain and NG tube in place. Plan to keep patient NPO with NG tube and maintenance IV fluids ordered. Further management plans to be determined by team inthe morning. Plan: -NPO -NG tube to suction -mIVF - plasmalyte 100cc/hr -Full set of labs -CXR to confirm PICC line placement (placed at OSH) -Nutrition consult for TPN Yomi Arreola MD PGY-1 - General Surgery Pager #[phone] Attestation statement: I saw and examined the patient, and I discussed the patient with the resident/fellow at the time of the visit. I agree with the findings and the plan of care documented in the resident's/fellow's note. Today, the patient was completely asymptomatic and stable with a heart rate of 70 and no pain. He underwent an upper GI study which showed contrast passing into the duodenum with positioning in various way down in the fluoroscopy suite. NG tube was removed. Patient is on sips of clear liquids. He is doing well. No vomiting. The patient has had a history of a large hiatal hernia for some time. He describes all symptoms of chest pain vomiting to relieve pain or pressure in the chest or abdomen early satiety and dysphagia. Unfortunately, the patient had an exploratory laparotomy but the stomach could not be on twisted orreduced and a partial gastropexy was performed. He will need this repaired at some point. Hopefully we can get him through the early postoperative period. Repeat operation at this point now a week and a half out from his previous surgery will makethis definitive repair quite difficult. Any exploration could be raw with complication due to the swelling and edema that has occurred. I would like to wait at least 3 months before taking him back to surgery for definitive repair. He understood all these things, he understood the procedure. I willtalk to him in more detail about this. We will see how he can advance his diet over time. --Ollie Lee MD CC: Jovani Wharton DO documented in this encounter Consult Notes * Sholaandreea Elena Adry, RD - 08/01/2021 0946 ESTAssociated Order(s): CONSULT NUTRITION Nutrition consult: Patient Name: Mathew Mendez Admission Date: 07/31/2021 Admission Dx: Paraesophageal hernia Medical Summary: Chief Complaint: Abdominal pain ?? HPI: Mathew Mendez is a 66-year-old male with history of paraesophageal hernia, hypertension, GERD, CKD 4,and diverticulitis (status post small bowel resection, colostomy, and subsequent colostomy reversal) who presents as a transfer from [facility] after presenting with acute onset abdominal pain secondary to an incarcerated paraesophageal hernia Clinical Course Since Last RD Visit: Subjective: Pt states he has been eating well at home and denies recent wt loss. 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 acetaminophen (OFIRMEV) IV solution 1,000 mg intravenous Now ??? electrolyte-A (PLASMALYTE-A) solution intravenous CONTINUOUS ??? heparin injection 5,000 Units subcutaneous Q8H ??? HYDROmorphone (PF) (DILAUDID) 0.5 mg/0.5 mL syringe 0.2-0.4 mg intravenous Q4H PRN ??? metoprolol TARtrate (LOPRESSOR) 5 mg in sodium chloride (NS) 0.9 % 50 mL IVPB intravenous Q6H ??? pantoprazole (PROTONIX) injection 40 mg intravenous BID Nutrition Focused Physical Exam: Subcutaneous Fat: Orbital Region: WNL Buccal Region: WNL Upper Arm Region: WNL Midaxillary Line: unable to assess Muscle: Anabaptist region: WNL Clavicle Region: WNL Shoulder and Acromion Region: WNL Scapular Region: WNL Hand Region: unable to assess Patellar/Thigh Region: WNL Calf Region: WNL Edema: none Summary: nl fat depletion and nl muscle depletion Pertinent Labs: Na 131 K/mg/phos:nl BS:nl Alb 4.1 LFT:NL Estimated Nutrition Needs: 1680 lakshmi (BEE x 1.2) 105 gm pro (1.5/kg) Estimated Nutrition Intake: NPO since admit Assessment: Pt does not meet criteria for malnutrition Plan to start TPN: suggest: AA 105 D 225 + 250 cc 20% IV fat daily in at least 1.2 L/day. Check daily lytes, mg and phos Check BS q 12 hrs Check TG/LFT am and weekly Nutrition Risk Level: High (1) Medical Nutrition Therapy Plan and Recommendations TPN: AA 105 gm D 225 gm + 250 cc 20% IV fat daily. TPN in at lease 1.2 L. Add daily MVI and trace elements Check daily lytes, mg and phos Monitor BS q 12 hours Check TG/LFT am and weekly Elena Mckeon RD (Call PAS or use [employer] to page RD covering this unit) documented in this encounter Miscellaneous Notes * Plan of Care - Lia Willis - 08/11/2021 1231 EDT 08/11/21 1231 Medicare IM Notice IM notice status Patient received notification verbally and in writing while in hospital. IM notice given on admission? Yes IM notice given at discharge? Yes Natalie Willis LMSW Manager Speech II Pager: [phone] * Plan of Care - John Rocha RN - 08/11/2021 0050 EDT Assumed care at 1900, pt A&Ox3, admitted w/ paraesophageal hernia. Rating abd pain 5/10; administering PO tramadol for management. States that his pain is not as well controlled with the new medication regimen. ?? Tolerating full liquid diet; no c/o nausea. On calorie count. Administering TUMs for heartburn. ?? Passing flatus, voiding w/o issue. VSS. ?? Plan is for D/C to home in AM on full liquid diet. ?? Resting comfortably, clustering care to promote an adequate sleeping environment. Call light withinreach. Will continue to monitor and adjust interventions as necessary. JOHN ROCHA RN 08/11/2021 0105 * Plan of Care - John Rocha RN - 08/10/2021 0143 EDT Assumed care at 1900, pt A&Ox3, admitted w/ paraesophageal hernia. Rating abd pain 4-5/10; administering PO oxy for management. Tolerating full liquid diet; no c/o nausea. On calorie count. Administering TUMs for heartburn. Pt states that he has walked 22 miles around the unit since admission; ambulating independently. Passing flatus, voiding w/o issue. VSS. Plan is for D/C once pt is taking in sufficient calories. Resting comfortably, clustering care to promote an adequate sleeping environment. Call light withinreach. Will continue to monitor and adjust interventions as necessary. JOHN ROCHA RN 08/10/2021 0149 * Plan of Care - Donna Carpenter RN - 08/09/2021 1538 EDT Assumed care of patient at 0700. Pt A&Ox4. VSS. Medications transitioned from IV to oral today.Pt tolerated pills well. Reports adequate relief with PRN Oxycodone. TPN discontinued. Tolerating full liquid diet, calorie count recorded. Pt ambulating independently in hallway, able to make needs known. Bed in low position, call salazar in reach. * Plan of Care - John Rocha RN - 08/09/2021 0027 EDT Assumed care at 1900, pt A&Ox3, admitted w/ paraesophageal hernia. Rating abdominal pain 4-5/10throughout night. Administering PRN dilaudid for management Q4. Cyclic TPN & lipids infusing via PICC. Tolerating full liquid diet; on lakshmi count. No c/o nausea/heartburn. Ambulating independently, voiding without issue. Passing flatus. VSS. Administering IV metoprolol Q6. Pt able to make needs known, call light within reach. Will continue to monitor and adjust interventions as necessary. JOHN ROCHA RN 08/09/2021 0033 * Plan of Care - Kushal Wang - 08/08/20212004 EDT Data: 66 yr old male admitted with paraesophageal hernia. Rating pain as 4/10. Ambulating independently in hallway. Pt on full liquid diet with calorie count. Action: Provided liquids as requested. Encouraged pt to consume liquids slowly to attempt to avoid heartburn/hiccups. Response: Pt resting comfortably. Pt reports general discomfort in abdomen that is controlled with pain meds. KUSHAL WANG 08/08/2021 20:06 * Plan of Care - Donna Carpenter RN - 08/08/2021 1808 EDT Assumed care of patient at 0700. Pt A&Ox4, VSS. Pt reports abdominal pain controlled with IV Dilaudid. Pt tolerating small amounts of full liquid diet. Calorie count in place. Cyclic TPN infusingper orders. Ambulating independently in hallway. Bed in low position, call salazar in reach. * Plan of Care - Nimisha Cruz RN - 08/08/2021 1503 EDT Problem: Sensory: Goal: Ability to understand and participate in conversations will be supported Outcome: Met This Shift Problem: High Fall Risk: Goal: Patient will Remain Free of Falls due to Med. Side Effects Outcome: Met This Shift Problem: High Fall Risk: Goal: Patient Will Remain Free from Fall-Related Injury Outcome: Met This Shift Problem: High Fall Risk: Goal: Patient will Remain Free of Falls due to Altered Elimination Outcome: Met This Shift Problem: Sensory: Goal: Ability to compensate for vision loss will be supported Outcome: Met This Shift * Plan of Care - Janette Duque RN - 08/08/2021 0503 EDT Patient had a good night. Tolerating full liquid diet well. No complaints of nausea/heartburn overnight. Patient sleeping most of the night. Patient independent in hallway and room. A&Ox3, vss. Patient on iv metoprolol for bp management. Patient on cyclic TPN/Lipids for nutrition. Calorie countinitiated yesterday. Dilaudid IV for pain with some relief. Patient waiting for insurance approval of tpn to go home. Otherwise, care plan continues. * Plan of Care - Donna Carpenter RN - 08/07/2021 1748 EDT Assumed care of patient at 1500. Pt A&Ox4, VSS. Pt reports adequate pain control with current regime. Tolerating small amounts of full liquid diet. Loose BM this evening, passing flatus. Pt ambulating frequently in hallway. Able to make needs known. Bed in low position, call salazar in reach. * Plan of Care - Silvia Sams RN - 08/07/2021 1520 EDT Problem: Daily Care Plan Goals Goal: Care Plan Documentation Flowsheets Taken 08/07/2021 1510 by Silvia Sams RN Area of Focus: Pain/ Comfort Taken 08/06/2021 1900 by Janette Duque RN Goal This Shift: patient will have adequate pain control Note: Pt guevara 8 oz of coffee for breakfast. He later ate 4 oz of jello over 3 hrs. Pt notes heartburn after sipping 100cc of OJ. Hiccups intermit. They cause reflux. Pt ate 4-5 oz of Tomato soup. He then experienced LUQ pain radiating across to RUQ 5/10. Dilaudid adm. He is amb. Pain relieved to 4.5/10. Hiccups intermit. * Plan of Care - Michael Kushal - 08/07/2021 1308 EDT Problem: Pain: Goal: Pain level will decrease Outcome: Ongoing Data: 66 yr old male admitted with paraesophageal hernia. Rating pain as 4/10. Ambulating independently in hallway. Action: Gave pain meds per eMAR. Pt requesting pain meds at regular intervals. Response: Pain levels staying stable at 4/10. KUSHAL WANG 08/07/2021 13:08 * Plan of Care - Janette Duque RN - 08/07/2021 0543 EDT Patient A&Ox3, vss. Patient on cyclic TPN/Lipids for nutrition. Tolerating well. Patient allowed 3 ounces of clear liquids per hour, manages himself. Patient taking dilaudid for pain control withgood relief. Patient slept well tonight. Ambulation in hallway and room independently. Patient expecting to go home today or tomorrow depending on home tpn set up. Care plan continues * Plan of Care - Laya Hernandez RN - 08/06/2021 1205 EDT Resumed care at 0700. Pt ambulating, voiding, continent, flatus, tolerating clear liquid diet, ableto make needs known. Cyclic TPN/lipids, redrew CMP this morning. Dilaudid given PRN for pain. Team added meds for hiccups/heartburn. VSS, tolerating diet and mobility. IS use encouraged, pt has moderate cough in the morning. Plan of care continues. * Plan of Care - Janette Duque RN - 08/06/2021 0626 EDT Patient A&Ox3, vss. Patient ambulatory in hallway and room independently. Tolerating well. Patient allowed 3 ounces of clear liquids an hour, manages himself with minimal issues. Patient complained overnight of increased reflux, seeming to be accompanied by hiccups. Patient taking iv dilaudid for pain q4 hours with good relief. Patient sleeping between care. Patient on TPN/lipids, changed to cyclic. Tolerating well. Otherwise no issues. * Plan of Care - Laya Hernandez RN - 08/05/2021 1433 EST Data: Assumed care at 0700. HD5, s/p exploratory laparotomy, lysis of adhesions, reduction of his gastric contents, and suture gastropexy at outside hospital (on 07/24/21). Midline incision c/d/i, PICC with TPN/lipids, clear liquid diet at 3oz/hr. Ambulatory, able to make needs known. A&Ox3, appropriate affect. Action: Meds given per eMAR. I&O measured. Q1h safety check. Encouraged IS use and mobility. Ptambulating in hallways with IV pole independently, continent, voiding, using IS, tolerating CL diet. Response: Plan of care continues. LAYA HERNANDEZ RN 08/05/2021 14:33 Problem: Daily Care Plan Goals Goal: Care Plan Documentation Outcome: Ongoing Flowsheets (Taken 08/05/2021 0700) Area of Focus: Nutrition/ Diet Goal This Shift: Tolerate Clears * Plan of Care - Janette Duque RN - 08/05/2021 0441 EST Shift Summary: Patient A&O x3, vss. Patient taking Metoprolol for htn. No issues. Patient on TPN/lipds for nutrition. Patient taking 30 cc of water each hour, other than causing hiccups, patient has tolerated well. Patient ambulatory in hallway and room independently. Dilaudid iv given for pain control with good relief. Patient slept between care. No complaints overnight. * Plan of Care - Lindsey Walton RN - 08/04/2021 1508 EST Problem: Daily Care Plan Goals Goal: Care Plan Documentation Outcome: Ongoing Flowsheets Taken 08/04/2021 1045 by Nichole Peña Area of Focus: GI//Elimination Taken 08/04/2021 0800 by Nichole Peña Goal This Shift: pt will have decreased nausea and heartburn Data: Pt A&Ox3, NPO (30cc/hr fluid restriction), 5/10 pain, denies nausea, reports heartburn and hiccups this AM, incision is C/D/I, ambulates independently OOB, TPN and lipids infusing Action: administered meds per MAR, completed assessments, Q1 safety checks, encouraged slow PO intake Response: pt is resting in bed, at bedside, bed in lowest position, call salazar within reach, will continue to monitor LINDSEY WALTON RN 08/04/2021 15:08 * Plan of Care - Nichole Peña - 08/04/2021 1049 EST Problem: Daily Care Plan Goals Goal: Care Plan Documentation Flowsheets Taken 08/04/2021 1045 Area of Focus: GI//Elimination Taken 08/04/2021 0800 Goal This Shift: pt will have decreased nausea and heartburn Note: Data: Assumed care of pt at 0700. Pt A+Ox3, VSS. Reports heartburn and nausea in the AM, rates pain5/10. Pt is independent and ambulates frequently in the el. Voiding prn, reports small BM + flatus yesterday, none today so far. Action: performed assessment, administered scheduled meds and IV dilaudid 0.4 mg PRN. TPN/lipids running. Response: pt reports no heartburn/nausea, rates pain 1/10. Continues to ambulate frequently on the unit. Pt is currently resting on the bed, at bedside. Nichole Peña 08/04/2021 10:47 Electronically signed by Damian ([facility])Tiffanie RN at 08/04/2021 15:05 EST * Plan of Care - Trung Marcus RN - 08/04/2021 0609 EST Data: pt axox3,pt denies n/v,pt having episodes of Hiccups off + on reulting in increase abd pain/flank +back,pt abd inc eliana HENRRY cdi Action: pt medicated with Dilaudid 0.5mg IV, Response: pt fell asleep TRUNG MARCUS RN 08/04/2021 6:09 * Plan of Care - Sha Leon RN - 08/02/2021 0418 EST Data: Resumed care of pt at 1900. Rating pain 4/10. Tolerating clear liquid diet. Denies nausea. Significant sleep apnea overnight. Action: PRN Dilaudid administered, see MAR. Care clustered, q1h checks, masimo on, and call salazar within reach. Response: Sleeping between care. VSS. Will continue to monitor. SHA LEON RN 08/02/2021 4:18 * Plan of Care - Cedrick Sanon RN - 08/01/2021 0255 EST Problem: Daily Care Plan Goals Goal: Care Plan Documentation Flowsheets (Taken 07/31/2021 1930) Area of Focus: Other Goal This Shift: orient to floor Note: Data: Pt direct admit from OSH. POD #8 s/p ex lap, DESHAWN, reduction of his gastric contents, and suture gastropexy from OSH. NPO. NGT to LCWS. Triple lumen PICC to right arm from OSH, cleared to use after x-ray. On cont. IVF. Midline with eliana with some bruising around, HENRRY. Denies nausea, +flatus. Pt rates pain 5-6/10. Action: Oriented to floor and visitor policy. Meds given per JUL. PRN IV dilaudid and scheduled tylenol administered for pain. Vitals monitored. Hourly checked. Response: Pt pleasant and able to make needs known. Beds locked at lowest position. Call salazar within reach. WCTM. CEDRICK SANON RN 08/01/2021 2:47 * Plan of Care - Donna Carpenter RN - 07/31/2021 1928 EST Pt arrived to room 621-1 at approximately 1900 via EMS. Pt A&Ox4, reports pain is controlled, denies nausea. VSS. [facility] paged for orders, Dr. Arreola in bedside. Verbal order to continue D51/2NS@80, MD made aware pt had TPN at prior facility. MD to place new order for IVF. Verbal order to continue NG tube to low continuous suction. Pt oriented to room and call salazar. Plan of care discussed. R eport given to oncoming RN. Bed in low position, call salazar in reach. documented in this encounter Plan of Treatment Scheduled Referrals Name Type Priority Associated Diagnoses Order Schedule PROVIDER FOLLOW-UP INSTRUCTIONS Outpatient Referral Routine/Next Available Ordered: 08/10/2021 PROVIDER FOLLOW-UP INSTRUCTIONS Outpatient Referral Routine/Next Available Ordered: 08/10/2021 PROVIDER FOLLOW-UP INSTRUCTIONS Outpatient Referral Routine/Next Available Ordered: 08/10/2021 PROVIDER FOLLOW-UP INSTRUCTIONS Outpatient Referral Routine/Next Available Ordered: 08/10/2021 documented as of this encounter Procedures Procedure Name Priority Date/Time Associated Diagnosis Comments POCT GLUCOSE, INTERFACED Routine 08/11/2021 5:59 EDT COMPLETE BLOOD COUNT AND DIFFERENTIAL Routine 08/11/2021 5:55 EDT PHOSPHORUS Routine 08/11/2021 5:54 EDT MAGNESIUM Routine 08/11/2021 5:54 EDT COMPREHENSIVE METABOLIC PANEL (CMP) Routine 08/11/2021 5:54 EDT POCT GLUCOSE, INTERFACED Routine 08/10/2021 5:59 EDT COMPLETE BLOOD COUNT AND DIFFERENTIAL Routine 08/10/2021 5:56 EDT PHOSPHORUS Routine 08/10/2021 5:56 EDT MAGNESIUM Routine 08/10/2021 5:56 EDT COMPREHENSIVE METABOLIC PANEL (CMP) Routine 08/10/2021 5:56 EDT POCT GLUCOSE, INTERFACED Routine 08/09/2021 5:15 EDT COMPLETE BLOOD COUNT AND DIFFERENTIAL Routine 08/09/2021 5:13 EDT PHOSPHORUS Routine 08/09/2021 5:13 EDT MAGNESIUM Routine 08/09/2021 5:13 EDT COMPREHENSIVE METABOLIC PANEL (CMP) Routine 08/09/2021 5:13 EDT COMPLETE BLOOD COUNT AND DIFFERENTIAL Routine 08/08/2021 6:04 EDT PHOSPHORUS Routine 08/08/2021 6:04 EDT MAGNESIUM Routine 08/08/2021 6:04 EDT COMPREHENSIVE METABOLIC PANEL (CMP) Routine 08/08/2021 6:04 EDT FL OUTSIDE IMAGES Routine 08/07/2021 13: 27 EDT COMPLETE BLOOD COUNT AND DIFFERENTIAL Routine 08/07/2021 5:12 EDT BILIRUBIN DIRECT/INDIRECT Routine 08/07/2021 5:12 EDT TRIGLYCERIDE Routine 08/07/2021 5:12 EDT PHOSPHORUS Routine 08/07/2021 5:12 EDT MAGNESIUM Routine 08/07/2021 5:12 EDT COMPREHENSIVE METABOLIC PANEL (CMP) Routine 08/07/2021 5:12 EDT COMPREHENSIVE METABOLIC PANEL (CMP) STAT 08/06/2021 7:44 EDT POCT GLUCOSE, INTERFACED Routine 08/06/2021 6:32 EDT COMPLETE BLOOD COUNT AND DIFFERENTIAL Routine 08/06/2021 6:09 EDT PHOSPHORUS Routine 08/06/2021 6:09 EDT MAGNESIUM Routine 08/06/2021 6:09 EDT COMPREHENSIVE METABOLIC PANEL (CMP) Routine 08/06/2021 6:09 EDT POCT GLUCOSE, INTERFACED Routine 08/05/2021 14:09 EST PHOSPHORUS Routine 08/05/2021 5:31 EST MAGNESIUM Routine 08/05/2021 5:31 EST COMPREHENSIVE METABOLIC PANEL (CMP) Routine 08/05/2021 5:31 EST COMPLETE BLOOD COUNT AND DIFFERENTIAL Routine 08/05/2021 5:30 EST POCT GLUCOSE, INTERFACED Routine 08/04/2021 5:06 EST COMPLETE BLOOD COUNT AND DIFFERENTIAL Routine 08/04/2021 4:57 EST PHOSPHORUS Routine 08/04/2021 4:57 EST MAGNESIUM Routine 08/04/2021 4:57 EST COMPREHENSIVE METABOLIC PANEL (CMP) Routine 08/04/2021 4:57 EST POCT GLUCOSE, INTERFACED Routine 08/03/2021 5:44 EST COMPLETE BLOOD COUNT AND DIFFERENTIAL Routine 08/03/2021 5:38 EST PHOSPHORUS Routine 08/03/2021 5:38 EST MAGNESIUM Routine 08/03/2021 5:38 EST COMPREHENSIVE METABOLIC PANEL (CMP) Routine 08/03/2021 5:38 EST POCT GLUCOSE, INTERFACED Routine 08/02/2021 4:46 EST COMPLETE BLOOD COUNT AND DIFFERENTIAL Routine 08/02/2021 4:39 EST PHOSPHORUS Routine 08/02/2021 4:39 EST MAGNESIUM Routine 08/02/2021 4:39 EST COMPREHENSIVE METABOLIC PANEL (CMP) Routine 08/02/2021 4:39 EST POCT GLUCOSE, INTERFACED Routine 08/01/2021 22:07 EST POCT GLUCOSE, INTERFACED Routine 08/01/2021 14:46 EST 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 08/01/2021 10:35 EST XR ABDOMEN 1 VIEW Routine 08/01/2021 8:3 4 EST COMPLETE BLOOD COUNT AND DIFFERENTIAL Routine 08/01/2021 5:26 EST PHOSPHORUS Routine 08/01/2021 5:25 EST MAGNESIUM Routine 08/01/2021 5:25 EST COMPREHENSIVE METABOLIC PANEL (CMP) Routine 08/01/2021 5:25 EST ZZCOVID-19 TEST [facility] PCR Today 07/31/2021 21:37 EST COVID-19 TESTING Routine 07/31/2021 21:3 7 EST COMPLETE BLOOD COUNT AND DIFFERENTIAL Routine 07/31/2021 21:36 EST PHOSPHORUS Routine 07/31/2021 21:36 EST MAGNESIUM Routine 07/31/2021 21:36 EST COMPREHENSIVE METABOLIC PANEL (CMP) STAT 07/31/2021 21:36 EST XR CHEST PORTABLE 1 VIEW Routine 07/31/2021 20:31 EST documented in this encounter Results * POCT GLUCOSE, INTERFACED (08/11/2021 5:59 EDT) Glucose, POC 93 70 - 100 mg/dL 08/11/2021 6:00 EDT [facility] HN LAB POC COMMENT (GLUCOSE) Test Performed by Nursing Services 08/11/2021 6:00 EDT [facility] Blood CAPILLARY BLOOD / Unknown 08/11/2021 5:59 EDT 08/11/2021 6:00 EDT Sanjuana Gaona NP POINT OF CARE TEST O RDERABLES [facility] [address] [place] [address] * (ABNORMAL) COMPLETE BLOOD COUNT AND DIFFERENTIAL (08/11/2021 5:55 EDT) WBC 5.86 4.00 - 10.40 K/cmm 08/11/2021 6:12 EDT [facility] RBC 3.04(L) 4.36 - 5.78 M/cmm 08/11/2021 6:12 [facility] Hemoglobin 9.3(L) 13.8 - 17.3 gm/dL 08/11/2021 6:12 [facility] HCT 27.6(L) 39.5 - 50.2 % 08/11/2021 6:12 [facility] MCV 91 81 - 95 fl 08/11/2021 6:12 [facility] MCH 30.6 27.6 - 33.0 pg 08/11/2021 6:12 [facility] MCHC 33.7 32.8 - 36.4 gm/dL 08/11/2021 6:12 [facility] RDW-CV 13.1 <14.2 % 08/11/2021 6:12 [facility] RDW-SD 43.2 <46.0 fl 08/11/2021 6:12 [facility] PLT 188 141 - 377 K/cmm 08/11/2021 6:12 [facility] MPV 11.8 9.5 - 12.7 fl 08/11/2021 6:12 [facility] % Neutrophils 53.2 % 08/11/2021 6:12 [facility] % Lymphocytes 19.8 % 08/11/2021 6:12 [facility] % Monocytes 10.1 % 08/11/2021 6:12 [facility] % Eosinophils 15.2 % 08/11/2021 6:12 [facility] % Basophils 1.2 % 08/11/2021 6:12 [facility] % Immature Grans 0.5 % 08/12/19 6:12 [facility] Absolute Neutrophils 3.12 2.20 - 8.85 K/cmm 08/11/2021 6:12 [facility] Absolute Lymphocytes 1.16 1.09 - 3.30 K/cmm 08/11/2021 6:12 [facility] Absolute Monocytes 0.59 0.10 - 0.80 K/cmm 08/11/2021 6:12 EDT [facility] Absolute Eosinophils 0.89(H) 0.03 - 0.61 K/cmm 08/11/2021 6:12 EDT [facility] ABS Basophils 0.07 0.01 - 0.11 K/cmm 08/11/2021 6:12 EDT [facility] Absolute Immature Grans 0.03 0.00 - 0.06 K/cmm 08/11/2021 6:12 EDT [facility] Type of Differential: Auto 08/11/2021 6:12 EDT [facility] Blood VENOUS BLOOD / Unknown Venipuncture / Unknown 08/11/2021 5:55 EDT 08/11/2021 6:02 EDT Yomi Arreola MD PACKAGES & DNA PROBE ORDERABLES Performing Organization Address City/[facility] Co de Phone Number [facility] [address] [place] [address] * (ABNORMAL) PHOSPHORUS (08/11/2021 5:54 EDT) Phosphorus 4.6(H) 2.5 - 4.5 mg/dL 08/11/2021 6:33 EDT [facility] Blood VENOUS BLOOD / Unknown Venipuncture / Unknown 08/11/2021 5:54 EDT 08/11/2021 6:01 EDT Yomi Arreola MD CHEMISTRY & BLOOD GA S ORDERABLES Performing Organization Address City/[facility] Co de Phone Number [facility] [address] [place] [address] * MAGNESIUM (08/11/2021 5:54 EDT) Magnesium 1.8 1.7 - 2.8 mg/dL 08/11/2021 6:33 EDT [facility] Blood VENOUS BLOOD / Unknown Venipuncture / Unknown 08/11/2021 5:54 EDT 08/11/2021 6:01 EDT Yomi Arreola MD CHEMISTRY & BLOOD GA S ORDERABLES [facility] [address] [place] [address] * (ABNORMAL) COMPREHENSIVE METABOLIC PANEL (CMP) (08/11/2021 5:54 EDT) Sodium 136 136 - 145 mmol/L 08/11/2021 6:33 [facility] Potassium 4.6 3.5 - 5.0 mmol/L 08/11/2021 6:33 [facility] Chloride 101 96 - 110 mmol/L 08/11/2021 6:33 [facility] CO2 Total 24 22 - 32 mmol/L 08/11/2021 6:33 [facility] Glucose 89 70 - 100 mg/dL 08/11/2021 6:33 [facility] BUN 55(H) 10 - 26 mg/dL 08/11/2021 6:33 [facility] Creatinine 2.30(H) 0.66 - 1.25 mg/dL 08/11/2021 6:33 [facility] eGFR 28(L) >60 mL/min/1.7 3m2 08/11/2021 6:33 [facility] Total Protein 6.2(L) 6.3 - 8.2 g/dL 08/11/2021 6:33 [facility] Albumin 3.8 3.4 - 4.9 g/dL 08/11/2021 6:33 [facility] Alkaline Phosphatase 68 38 - 126 U/L 08/11/2021 6:33 [facility] AST 19 15 - 46 U/L 08/11/2021 6:33 [facility] ALT 16 <50 U/L 08/11/2021 6:33 [facility] Bilirubin, Total <0.5 <1.4 mg/dL 08/12/19 6:33 [facility] Calcium 9.2 8.5 - 10.5 mg/dL 08/11/2021 6:33 EDT [facility] Albumin/Globulin Ratio 1.6 1.0 - 2.5 08/11/2021 6:33 EDT [facility] Anion Gap 11 5 - 14 08/11/2021 6:33 EDT [facility] Blood VENOUS BLOOD / Unknown Venipuncture / Unknown 08/11/2021 5:54 EDT 08/11/2021 6:01 EDT Yomi Arreola MD CHEMISTRY & BLOOD GA S ORDERABLES Performing Organization Address City/[facility]/ZIP Co de Phone Number [facility] [address] [place] [address] * POCT GLUCOSE, INTERFACED (08/10/2021 5:59 EDT) Glucose, POC 99 70 - 100 mg/dL 08/10/2021 6:00 EDT [facility] HN LAB POC COMMENT (GLUCOSE) Test Performed by Nursing Services 08/10/2021 6:00 EDT [facility] Blood CAPILLARY BLOOD / Unknown 08/10/2021 5:59 EDT 08/10/2021 6:00 EDT Sanjuana Gaona [employer] POINT OF CARE TEST O RDERABLES Performing Organization Address City/[facility]/ZIP Co de Phone Number [facility] [address] [place] [id number] * (ABNORMAL) PHOSPHORUS (08/10/2021 5:56 EDT) Phosphorus 4.7(H) 2.5 - 4.5 mg/dL 08/10/2021 6:39 EDT [facility] Blood VENOUS BLOOD / Unknown Venipuncture / Unknown 08/10/2021 5:56 EDT 08/10/2021 6:08 EDT Yomi Arreola MD CHEMISTRY & BLOOD GA S ORDERABLES [facility] [address] [place] [address] * MAGNESIUM (08/10/2021 5:56 EDT) Pathologist [facility] Magnesium 1.9 1.7 - 2.8 mg/dL 08/10/2021 6:39 EDT [facility] Blood VENOUS BLOOD / Unknown Venipuncture / Unknown 08/10/2021 5:56 EDT 08/10/2021 6:08 EDT Yomi Arreola MD CHEMISTRY & BLOOD GA S ORDERABLES [facility] [address] [place] [address] * (ABNORMAL) COMPLETE BLOOD COUNT AND DIFFERENTIAL (08/10/2021 5:56 EDT) Pathologist [facility] WBC 6.38 4.00 - 10.40 K/cmm 08/10/2021 6:12 [facility] RBC 3.14(L) 4.36 - 5.78 M/cmm 08/10/2021 6:12 [facility] Hemoglobin 9.7(L) 13.8 - 17.3 gm/dL 08/10/2021 6:12 [facility] HCT 28.3(L) 39.5 - 50.2 % 08/10/2021 6:12 [facility] MCV 90 81 - 95 fl 08/10/2021 6:12 [facility] MCH 30.9 27.6 - 33.0 pg 08/10/2021 6:12 [facility] MCHC 34.3 32.8 - 36.4 gm/dL 08/10/2021 6:12 [facility] RDW-CV 13.1 <14.2 % 08/10/2021 6:12 [facility] RDW-SD 43.0 <46.0 fl 08/10/2021 6:12 [facility] PLT 204 141 - 377 K/cmm 08/10/2021 6:12 [facility] MPV 11.5 9.5 - 12.7 fl 08/10/2021 6:12 [facility] % Neutrophils 59.4 % 08/10/2021 6:12 [facility] % Lymphocytes 16.8 % 08/10/2021 6:12 [facility] % Monocytes 7.8 % 08/10/2021 6:12 [facility] % Eosinophils 14.1 % 08/10/2021 6:12 [facility] % Basophils 1.4 % 08/10/2021 6:12 [facility] % Immature Grans 0.5 % 08/11/19 6:12 [facility] Absolute Neutrophils 3.79 2.20 - 8.85 K/cmm 08/10/2021 6:12 [facility] Absolute Lymphocytes 1.07(L) 1.09 - 3.30 K/cmm 08/10/2021 6:12 [facility] Absolute Monocytes 0.50 0.10 - 0.80 K/cmm 08/10/2021 6:12 [facility] Absolute Eosinophils 0.90(H) 0.03 - 0.61 K/cmm 08/10/2021 6:12 [facility] ABS Basophils 0.09 0.01 - 0.11 K/cmm 08/10/2021 6:12 [facility] Absolute Immature Grans 0.03 0.00 - 0.06 K/cmm 08/10/2021 6:12 [facility] Type of Differential: Auto 08/10/2021 6:12 [facility] Blood VENOUS BLOOD / Unknown Venipuncture / Unknown 08/10/2021 5:56 EDT 08/10/2021 6:05 EDT Yomi Arreola MD PACKAGES & DNA PROBE ORDERABLES [facility] [address] [place] [address] * (ABNORMAL) COMPREHENSIVE METABOLIC PANEL (CMP) (08/10/2021 5:56 EDT) Sodium 139 136 - 145 mmol/L 08/10/2021 6:39 [facility] Potassium 4.7 3.5 - 5.0 mmol/L 08/10/2021 6:39 [facility] Chloride 101 96 - 110 mmol/L 08/10/2021 6:39 [facility] CO2 Total 23 22 - 32 mmol/L 08/10/2021 6:39 [facility] Glucose 97 70 - 100 mg/dL 08/10/2021 6:39 [facility] BUN 58(H) 10 - 26 mg/dL 08/10/2021 6:39 [facility] Creatinine 2.30(H) 0.66 - 1.25 mg/dL 08/10/2021 6:39 [facility] eGFR 28(L) >60 mL/min/1.7 3m2 08/10/2021 6:39 [facility] Total Protein 6.7 6.3 - 8.2 g/dL 08/10/2021 6:39 [facility] Albumin 4.2 3.4 - 4.9 g/dL 08/10/2021 6:39 [facility] Alkaline Phosphatase 75 38 - 126 U/L 08/10/2021 6:39 [facility] AST 20 15 - 46 U/L 08/10/2021 6:39 [facility] ALT 17 <50 U/L 08/10/2021 6:39 [facility] Bilirubin, Total <0.5 <1.4 mg/dL 08/11/19 6:39 [facility] Calcium 9.8 8.5 - 10.5 mg/dL 08/10/2021 6:39 [facility] Albumin/Globulin Ratio 1.7 1.0 - 2.5 08/10/2021 6:39 [facility] Anion Gap 15(H) 5 - 14 08/10/2021 6:39 EDT [facility] Blood VENOUS BLOOD / Unknown Venipuncture / Unknown 08/10/2021 5:56 EDT 08/10/2021 6:08 EDT Yomi Arreola MD CHEMISTRY & BLOOD GA S ORDERABLES Performing Organization Address City/[facility]/ZIP Co de Phone Number [facility] [address] [place] [address] * (ABNORMAL) POCT GLUCOSE, INTERFACED (08/09/2021 5:15 EDT) Glucose, POC 116(H) 70 - 100 mg/dL 08/09/2021 5:17 EDT [facility] HN LAB POC COMMENT (GLUCOSE) Test Performed by Nursing Services 08/09/2021 5:17 EDT [facility] Blood CAPILLARY BLOOD / Unknown 08/09/2021 5:15 EDT 08/09/2021 5:17 EDT Sanjuana Gaona [employer] POINT OF CARE TEST O RDERABLES Performing Organization Address City/[facility]/ZIP Co de Phone Number [facility] [address] [place] [address] * PHOSPHORUS (08/09/2021 5:13 EDT) Phosphorus 3.8 2.5 - 4.5 mg/dL 08/09/2021 6:01 EDT [facility] Blood VENOUS BLOOD / Unknown Venipuncture / Unknown 08/09/2021 5:13 EDT 08/09/2021 5:23 EDT Yomi Arreola MD CHEMISTRY & BLOOD GA S ORDERABLES Performing Organization Address City/[facility]/ZIP Co de Phone Number [facility] [address] [place] [address] * MAGNESIUM (08/09/2021 5:13 EDT) Magnesium 2.0 1.7 - 2.8 mg/dL 08/09/2021 6:01 [facility] Blood VENOUS BLOOD / Unknown Venipuncture / Unknown 08/09/2021 5:13 EDT 08/09/2021 5:23 EDT Yomi Arreola MD CHEMISTRY & BLOOD GA S ORDERABLES [facility] [address] [place] [address] * (ABNORMAL) COMPLETE BLOOD COUNT AND DIFFERENTIAL (08/09/2021 5:13 EDT) WBC 7.59 4.00 - 10.40 K/cmm 08/09/2021 5:27 [facility] RBC 2.90(L) 4.36 - 5.78 M/cmm 08/09/2021 5:27 [facility] Hemoglobin 8.9(L) 13.8 - 17.3 gm/dL 08/09/2021 5:27 [facility] HCT 26.3(L) 39.5 - 50.2 % 08/09/2021 5:27 [facility] MCV 91 81 - 95 fl 08/09/2021 5:27 [facility] MCH 30.7 27.6 - 33.0 pg 08/09/2021 5:27 [facility] MCHC 33.8 32.8 - 36.4 gm/dL 08/09/2021 5:27 [facility] RDW-CV 13.0 <14.2 % 08/09/2021 5:27 [facility] RDW-SD 43.0 <46.0 fl 08/09/2021 5:27 [facility] PLT 209 141 - 377 K/cmm 08/09/2021 5:27 [facility] MPV 11.7 9.5 - 12.7 fl 08/09/2021 5:27 [facility] % Neutrophils 69.0 % 08/09/2021 5:27 [facility] % Lymphocytes 11.7 % 08/09/2021 5:27 [facility] % Monocytes 7.4 % 08/09/2021 5:27 [facility] % Eosinophils 10.4 % 08/09/2021 5:27 [facility] % Basophils 1.2 % 08/09/2021 5:27 [facility] % Immature Grans 0.3 % 08/10/19 5:27 [facility] Absolute Neutrophils 5.24 2.20 - 8.85 K/cmm 08/09/2021 5:27 [facility] Absolute Lymphocytes 0.89(L) 1.09 - 3.30 K/cmm 08/09/2021 5:27 [facility] Absolute Monocytes 0.56 0.10 - 0.80 K/cmm 08/09/2021 5:27 [facility] Absolute Eosinophils 0.79(H) 0.03 - 0.61 K/cmm 08/09/2021 5:27 [facility] ABS Basophils 0.09 0.01 - 0.11 K/cmm 08/09/2021 5:27 [facility] Absolute Immature Grans 0.02 0.00 - 0.06 K/cmm 08/09/2021 5:27 [facility] Type of Differential: Auto 08/09/2021 5:27 [facility] Blood VENOUS BLOOD / Unknown Venipuncture / Unknown 08/09/2021 5:13 EDT 08/09/2021 5:18 EDT Yomi Arreola MD PACKAGES & DNA PROBE ORDERABLES [facility] [address] [place] [address] * (ABNORMAL) COMPREHENSIVE METABOLIC PANEL (CMP) (08/09/2021 5:13 EDT) Sodium 138 136 - 145 mmol/L 08/09/2021 6:01 [facility] Potassium 4.4 3.5 - 5.0 mmol/L 08/09/2021 6:01 [facility] Chloride 104 96 - 110 mmol/L 08/09/2021 6:01 [facility] CO2 Total 22 22 - 32 mmol/L 08/09/2021 6:01 [facility] Glucose 109(H) 70 - 100 mg/dL 08/09/2021 6:01 [facility] BUN 59(H) 10 - 26 mg/dL 08/09/2021 6:01 [facility] Creatinine 2.05(H) 0.66 - 1.25 mg/dL 08/09/2021 6:01 [facility] eGFR 33(L) >60 mL/min/1.7 3m2 08/09/2021 6:01 [facility] Total Protein 6.2(L) 6.3 - 8.2 g/dL 08/09/2021 6:01 [facility] Albumin 3.7 3.4 - 4.9 g/dL 08/09/2021 6:01 [facility] Alkaline Phosphatase 67 38 - 126 U/L 08/09/2021 6:01 [facility] AST 18 15 - 46 U/L 08/09/2021 6:01 [facility] ALT 16 <50 U/L 08/09/2021 6:01 [facility] Bilirubin, Total <0.5 <1.4 mg/dL 08/10/19 22 6:01 [facility] Calcium 9.7 8.5 - 10.5 mg/dL 08/09/2021 6:01 [facility] Albumin/Globulin Ratio 1.5 1.0 - 2.5 08/09/2021 6:01 [facility] Anion Gap 12 5 - 14 08/09/2021 6:01 [facility] Blood VENOUS BLOOD / Unknown Venipuncture / Unknown 08/09/2021 5:13 EDT 08/09/2021 5:23 EDT Yomi Arreola MD CHEMISTRY & BLOOD GA S ORDERABLES [facility] [address] [place] [address] * PHOSPHORUS (08/08/2021 6:04 EDT) Phosphorus 4.4 2.5 - 4.5 mg/dL 08/08/2021 7:02 EDT [facility] Blood VENOUS BLOOD / Unknown Venipuncture / Unknown 08/08/2021 6:04 EDT 08/08/2021 6:17 EDT Yomi Arreola MD CHEMISTRY & BLOOD GA S ORDERABLES Performing Organization Address [facility]/ZIP Co de Phone Number [facility] [address] [place] [address] * MAGNESIUM (08/08/2021 6:04 EDT) Magnesium 2.0 1.7 - 2.8 mg/dL 08/08/2021 7:02 EDT [facility] Blood VENOUS BLOOD / Unknown Venipuncture / Unknown 08/08/2021 6:04 EDT 08/08/2021 6:17 EDT Yomi Arreola MD CHEMISTRY & BLOOD GA S ORDERABLES Performing Organization Address City/[facility] Co de Phone Number [facility] [address] [place] [address] * (ABNORMAL) COMPLETE BLOOD COUNT AND DIFFERENTIAL (08/08/2021 6:04 EDT) WBC 6.05 4.00 - 10.40 K/cmm 08/08/2021 6:22 EDT [facility] RBC 2.92(L) 4.36 - 5.78 M/cmm 08/08/2021 6:22 EDT [facility] Hemoglobin 8.7(L) 13.8 - 17.3 gm/dL 08/08/2021 6:22 EDT [facility] HCT 27.1(L) 39.5 - 50.2 % 08/08/2021 6:22 [facility] MCV 93 81 - 95 fl 08/08/2021 6:22 [facility] MCH 29.8 27.6 - 33.0 pg 08/08/2021 6:22 [facility] MCHC 32.1(L) 32.8 - 36.4 gm/dL 08/08/2021 6:22 [facility] RDW-CV 12.9 <14.2 % 08/08/2021 6:22 [facility] RDW-SD 43.9 <46.0 fl 08/08/2021 6:22 [facility] PLT 206 141 - 377 K/cmm 08/08/2021 6:22 [facility] MPV 11.6 9.5 - 12.7 fl 08/08/2021 6:22 [facility] % Neutrophils 57.2 % 08/08/2021 6:22 [facility] % Lymphocytes 17.7 % 08/08/2021 6:22 [facility] % Monocytes 9.3 % 08/08/2021 6:22 [facility] % Eosinophils 14.0 % 08/08/2021 6:22 [facility] % Basophils 1.3 % 08/08/2021 6:22 [facility] % Immature Grans 0.5 % 08/09/19 6:22 [facility] Absolute Neutrophils 3.46 2.20 - 8.85 K/cmm 08/08/2021 6:22 [facility] Absolute Lymphocytes 1.07(L) 1.09 - 3.30 K/cmm 08/08/2021 6:22 [facility] Absolute Monocytes 0.56 0.10 - 0.80 K/cmm 08/08/2021 6:22 [facility] Absolute Eosinophils 0.85(H) 0.03 - 0.61 K/cmm 08/08/2021 6:22 [facility] ABS Basophils 0.08 0.01 - 0.11 K/cmm 08/08/2021 6:22 [facility] Absolute Immature Grans 0.03 0.00 - 0.06 K/cmm 08/08/2021 6:22 [facility] Type of Differential: Auto 08/08/2021 6:22 [facility] Blood VENOUS BLOOD / Unknown Venipuncture / Unknown 08/08/2021 6:04 EDT 08/08/2021 6:15 EDT Yomi Arreola MD PACKAGES & DNA PROBE ORDERABLES [facility] [address] [place] [address] * (ABNORMAL) COMPREHENSIVE METABOLIC PANEL (CMP) (08/08/2021 6:04 EDT) Sodium 138 136 - 145 mmol/L 08/08/2021 7:02 [facility] Potassium 4.7 3.5 - 5.0 mmol/L 08/08/2021 7:02 [facility] Chloride 106 96 - 110 mmol/L 08/08/2021 7:02 [facility] CO2 Total 19(L) 22 - 32 mmol/L 08/08/2021 7:02 [facility] Glucose 114(H) 70 - 100 mg/dL 08/08/2021 7:02 [facility] BUN 56(H) 10 - 26 mg/dL 08/08/2021 7:02 [facility] Creatinine 2.17(H) 0.66 - 1.25 mg/dL 08/08/2021 7:02 [facility] eGFR 30(L) >60 mL/min/1.7 3m2 08/08/2021 7:02 [facility] Total Protein 6.2(L) 6.3 - 8.2 g/dL 08/08/2021 7:02 [facility] Albumin 3.7 3.4 - 4.9 g/dL 08/08/2021 7:02 [facility] Alkaline Phosphatase 66 38 - 126 U/L 08/08/2021 7:02 [facility] AST 20 15 - 46 U/L 08/08/2021 7:02 [facility] ALT 16 <50 U/L 08/08/2021 7:02 [facility] Bilirubin, Total <0.5 <1.4 mg/dL 08/09/19 7:02 [facility] Calcium 9.5 8.5 - 10.5 mg/dL 08/08/2021 7:02 [facility] Albumin/Globulin Ratio 1.5 1.0 - 2.5 08/08/2021 7:02 [facility] Anion Gap 13 5 - 14 08/08/2021 7:02 [facility] Blood VENOUS BLOOD / Unknown Venipuncture / Unknown 08/08/2021 6:04 EDT 08/08/2021 6:17 EDT Yomi Arreola MD CHEMISTRY & BLOOD GA S ORDERABLES [facility] [address] [place] [address] * [place] OUTSIDE IMAGES (08/07/2021 13:27 EDT) Narrative 08/07/2021 13:27 EDT This is a non-reportable exam. External Imaging IMG OTHER IMAGING OR DERABLES * TRIGLYCERIDE (08/07/2021 5:12 EDT) Triglyceride 196 See Note mg/dL 08/07/2021 5:45 EDT [facility] Comment: Normal: ? <150 mg/dL Borderline High: ??150 - 199 mg/dL High: ? 200 - 499 mg/dL Very High: ?> or = 500 mg/dL Blood VENOUS BLOOD / Unknown Venipuncture / Unknown 08/07/2021 5:12 EDT 08/07/2021 5:16 EDT Sanjuana Gaona NP CHEMISTRY & BLOOD GA S ORDERABLES Performing Organization Address City/[facility]/ZIP Co de Phone Number [facility] [address] [place] [address] * BILIRUBIN DIRECT/INDIRECT (08/07/2021 5:12 EDT) Conjugated Bilirubin 0.0 <=0.3 mg/dL 08/07/2021 5:45 EDT [facility] Unconjugated Bilirubin 0.0 <=1.1 mg/dL 08/07/2021 5:45 EDT [facility] Blood VENOUS BLOOD / Unknown Venipuncture / Unknown 08/07/2021 5:12 EDT 08/07/2021 5:16 EDT Sanjuana Gaona NP CHEMISTRY & BLOOD GA S ORDERABLES Performing Organization Address City/[facility]/ZIP Co de Phone Number [facility] [address] [place] [address] * PHOSPHORUS (08/07/2021 5:12 EDT) Phosphorus 4.1 2.5 - 4.5 mg/dL 08/07/2021 5:45 EDT [facility] Blood VENOUS BLOOD / Unknown Venipuncture / Unknown 08/07/2021 5:12 EDT 08/07/2021 5:16 EDT Yomi Arreola MD CHEMISTRY & BLOOD GA S ORDERABLES [facility] [address] [place] [address] * MAGNESIUM (08/07/2021 5:12 EDT) Magnesium 2.1 1.7 - 2.8 mg/dL 08/07/2021 5:45 EDT [facility] Blood VENOUS BLOOD / Unknown Venipuncture / Unknown 08/07/2021 5:12 EDT 08/07/2021 5:16 EDT Yomi Arreola MD CHEMISTRY & BLOOD GA S ORDERABLES [facility] [address] [place] [address] * (ABNORMAL) COMPLETE BLOOD COUNT AND DIFFERENTIAL (08/07/2021 5:12 EDT) WBC 5.83 4.00 - 10.40 K/cmm 08/07/2021 5:23 EDT [facility] RBC 2.73(L) 4.36 - 5.78 M/cmm 08/07/2021 5:23 [facility] Hemoglobin 8.4(L) 13.8 - 17.3 gm/dL 08/07/2021 5:23 [facility] HCT 25.5(L) 39.5 - 50.2 % 08/07/2021 5:23 [facility] MCV 93 81 - 95 fl 08/07/2021 5:23 [facility] MCH 30.8 27.6 - 33.0 pg 08/07/2021 5:23 [facility] MCHC 32.9 32.8 - 36.4 gm/dL 08/07/2021 5:23 [facility] RDW-CV 12.9 <14.2 % 08/07/2021 5:23 [facility] RDW-SD 43.6 <46.0 fl 08/07/2021 5:23 [facility] PLT 204 141 - 377 K/cmm 08/07/2021 5:23 [facility] MPV 11.5 9.5 - 12.7 fl 08/07/2021 5:23 [facility] % Neutrophils 54.6 % 08/07/2021 5:23 [facility] % Lymphocytes 17.3 % 08/07/2021 5:23 [facility] % Monocytes 10.1 % 08/07/2021 5:23 [facility] % Eosinophils 16.0 % 08/07/2021 5:23 [facility] % Basophils 1.5 % 08/07/2021 5:23 [facility] % Immature Grans 0.5 % 08/08/19 5:23 [facility] Absolute Neutrophils 3.18 2.20 - 8.85 K/cmm 08/07/2021 5:23 [facility] Absolute Lymphocytes 1.01(L) 1.09 - 3.30 K/cmm 08/07/2021 5:23 [facility] Absolute Monocytes 0.59 0.10 - 0.80 K/cmm 08/07/2021 5:23 [facility] Absolute Eosinophils 0.93(H) 0.03 - 0.61 K/cmm 08/07/2021 5:23 [facility] ABS Basophils 0.09 0.01 - 0.11 K/cmm 08/07/2021 5:23 [facility] Absolute Immature Grans 0.03 0.00 - 0.06 K/cmm 08/07/2021 5:23 [facility] Type of Differential: Auto 08/07/2021 5:23 [facility] Blood VENOUS BLOOD / Unknown Venipuncture / Unknown 08/07/2021 5:12 EDT 08/07/2021 5:16 EDT Yomi Arreola MD PACKAGES & DNA PROBE ORDERABLES [facility] [address] [place] [address] * (ABNORMAL) COMPREHENSIVE METABOLIC PANEL (CMP) (08/07/2021 5:12 EDT) Sodium 136 136 - 145 mmol/L 08/07/2021 5:45 T [facility] Potassium 4.7 3.5 - 5.0 mmol/L 08/07/2021 5:45 [facility] Chloride 106 96 - 110 mmol/L 08/07/2021 5:45 [facility] CO2 Total 21(L) 22 - 32 mmol/L 08/07/2021 5:45 [facility] Glucose 115(H) 70 - 100 mg/dL 08/07/2021 5:45 [facility] BUN 54(H) 10 - 26 mg/dL 08/07/2021 5:45 [facility] Creatinine 2.04(H) 0.66 - 1.25 mg/dL 08/07/2021 5:45 [facility] eGFR 33(L) >60 mL/min/1.7 3m2 08/07/2021 5:45 [facility] Total Protein 5.9(L) 6.3 - 8.2 g/dL 08/07/2021 5:45 [facility] Albumin 3.5 3.4 - 4.9 g/dL 08/07/2021 5:45 [facility] Alkaline Phosphatase 60 38 - 126 U/L 08/07/2021 5:45 [facility] AST 19 15 - 46 U/L 08/07/2021 5:45 [facility] ALT 14 <50 U/L 08/07/2021 5:45 [facility] Bilirubin, Total <0.5 <1.4 mg/dL 08/08/19 5:45 [facility] Calcium 9.1 8.5 - 10.5 mg/dL 08/07/2021 5:45 [facility] Albumin/Globulin Ratio 1.5 1.0 - 2.5 08/07/2021 5:45 [facility] Anion Gap 9 5 - 14 08/07/2021 5:45 [facility] Blood VENOUS BLOOD / Unknown Venipuncture / Unknown 08/07/2021 5:12 EDT 08/07/2021 5:16 EDT Yomi Arreola MD CHEMISTRY & BLOOD GA S ORDERABLES [facility] [address] [place] [address] * (ABNORMAL) COMPREHENSIVE METABOLIC PANEL (CMP) (08/06/2021 7:44 EDT) Sodium 138 136 - 145 mmol/L 08/06/2021 8:19 [facility] Potassium 4.8 3.5 - 5.0 mmol/L 08/06/2021 8:19 [facility] Chloride 104 96 - 110 mmol/L 08/06/2021 8:19 [facility] CO2 Total 21(L) 22 - 32 mmol/L 08/06/2021 8:19 [facility] Glucose 102(H) 70 - 100 mg/dL 08/06/2021 8:19 [facility] BUN 55(H) 10 - 26 mg/dL 08/06/2021 8:19 [facility] Creatinine 2.17(H) 0.66 - 1.25 mg/dL 08/06/2021 8:19 [facility] eGFR 30(L) >60 mL/min/1.7 3m2 08/06/2021 8:19 [facility] Total Protein 6.8 6.3 - 8.2 g/dL 08/06/2021 8:19 [facility] Albumin 4.1 3.4 - 4.9 g/dL 08/06/2021 8:19 [facility] Alkaline Phosphatase 70 38 - 126 U/L 08/06/2021 8:19 [facility] AST 21 15 - 46 U/L 08/06/2021 8:19 [facility] ALT 15 <50 U/L 08/06/2021 8:19 [facility] Bilirubin, Total <0.5 <1.4 mg/dL 08/07/19 8:19 [facility] Calcium 9.6 8.5 - 10.5 mg/dL 08/06/2021 8:19 [facility] Albumin/Globulin Ratio 1.5 1.0 - 2.5 08/06/2021 8:19 EDT [facility] Anion Gap 13 5 - 14 08/06/2021 8:19 EDT [facility] Blood VENOUS BLOOD / Unknown Venipuncture / Unknown 08/06/2021 7:44 EDT 08/06/2021 7:52 EDT Yomi Arreola MD CHEMISTRY & BLOOD GA S ORDERABLES Performing Organization Address City/[facility]/ZIP Co de Phone Number [facility] [address] [place] [address] * POCT GLUCOSE, INTERFACED (08/06/2021 6:32 EDT) Glucose, POC 98 70 - 100 mg/dL 08/06/2021 7:33 EDT [facility] HN LAB POC COMMENT (GLUCOSE) Test Performed by Nursing Services 08/06/2021 7:33 EDT [facility] Blood CAPILLARY BLOOD / Unknown 08/06/2021 6:32 EDT 08/06/2021 7:33 EDT Sanjuana Gaona [employer] POINT OF CARE TEST O RDERABLES Performing Organization Address [facility] Co de Phone Number [facility] [address] [place] [address] * PHOSPHORUS (08/06/2021 6:09 EDT) Pathologist Kavitha Phosphorus 08/07/2021 9:40 EDT [facility] Comment: Question specimen contaminated. This is a corrected result. Previous result was 4.4 mg/dL on 08/06/2021 at 0704 EDT Blood VENOUS BLOOD / Unknown Venipuncture / Unknown 08/06/2021 6:09 EDT 08/06/2021 6:34 EDT Yomi Arreola MD CHEMISTRY & BLOOD GA S ORDERABLES Performing Organization Address City/[facility] Co de Phone Number [facility] [address] [place] [address] * MAGNESIUM (08/06/2021 6:09 EDT) Magnesium 08/07/2021 9:40 T [facility] Comment: Question specimen contaminated. This is a corrected result. Previous result was 2.4 mg/dL on 08/06/2021 at 0704 EDT Blood VENOUS BLOOD / Unknown Venipuncture / Unknown 08/06/2021 6:09 EDT 08/06/2021 6:34 EDT Yomi Arreola MD CHEMISTRY & BLOOD GA S ORDERABLES [facility] [address] [place] [address] * (ABNORMAL) COMPLETE BLOOD COUNT AND DIFFERENTIAL (08/06/2021 6:09 EDT) [facility] WBC 6.86 4.00 - 10.40 K/cmm 08/06/2021 6:34 [facility] RBC 2.63(L) 4.36 - 5.78 M/cmm 08/06/2021 6:34 [facility] Hemoglobin 8.4(L) 13.8 - 17.3 gm/dL 08/06/2021 6:34 [facility] HCT 25.2(L) 39.5 - 50.2 % 08/06/2021 6:34 [facility] MCV 96(H) 81 - 95 fl 08/06/2021 6:34 [facility] MCH 31.9 27.6 - 33.0 pg 08/06/2021 6:34 [facility] MCHC 33.3 32.8 - 36.4 gm/dL 08/06/2021 6:34 [facility] RDW-CV 12.9 <14.2 % 08/06/2021 6:34 [facility] RDW-SD 45.7 <46.0 fl 08/06/2021 6:34 [facility] PLT 200 141 - 377 K/cmm 08/06/2021 6:34 [facility] MPV 11.8 9.5 - 12.7 fl 08/06/2021 6:34 [facility] % Neutrophils 61.9 % 08/06/2021 6:34 [facility] % Lymphocytes 14.0 % 08/06/2021 6:34 [facility] % Monocytes 8.9 % 08/06/2021 6:34 [facility] % Eosinophils 13.7 % 08/06/2021 6:34 [facility] % Basophils 1.2 % 08/06/2021 6:34 [facility] % Immature Grans 0.3 % 08/07/19 6:34 [facility] Absolute Neutrophils 4.25 2.20 - 8.85 K/cmm 08/06/2021 6:34 [facility] Absolute Lymphocytes 0.96(L) 1.09 - 3.30 K/cmm 08/06/2021 6:34 [facility] Absolute Monocytes 0.61 0.10 - 0.80 K/cmm 08/06/2021 6:34 [facility] Absolute Eosinophils 0.94(H) 0.03 - 0.61 K/cmm 08/06/2021 6:34 [facility] ABS Basophils 0.08 0.01 - 0.11 K/cmm 08/06/2021 6:34 [facility] Absolute Immature Grans 0.02 0.00 - 0.06 K/cmm 08/06/2021 6:34 [facility] Type of Differential: Auto 08/06/2021 6:34 [facility] Blood VENOUS BLOOD / Unknown Venipuncture / Unknown 08/06/2021 6:09 EDT 08/06/2021 6:17 EDT Yomi Arreola MD PACKAGES & DNA PROBE ORDERABLES [facility] [address] [place] [address] * COMPREHENSIVE METABOLIC PANEL (CMP) (08/06/2021 6:09 EDT) Sodium 08/07/2021 9:40 T [facility] Comment: Question specimen contaminated. This is a corrected result. Previous result was 134 mmol/L on 08/06/2021 at 0718 EDT Potassium 08/07/2021 9:40 [facility] Comment: Question specimen contaminated. This is a corrected result. Previous result was 5.8 mmol/L on 08/06/2021 at 0718 EDT Chloride 08/07/2021 9:40 T [facility] Comment: Question specimen contaminated. This is a corrected result. Previous result was 102 mmol/L on 08/06/2021 at 0718 EDT CO2 Total 08/07/2021 9:40 [facility] Comment: Question specimen contaminated. This is a corrected result. Previous result was 20 mmol/L on 08/06/2021 at 0718 EDT Glucose 08/07/2021 9:40 [facility] Comment: Question specimen contaminated. This is a corrected result. Previous result was 527 mg/dL on 08/06/2021 at 0718 EDT BUN 08/07/2021 9:40 [facility] Comment: Question specimen contaminated. This is a corrected result. Previous result was 51 mg/dL on 08/06/2021 at 0718 EDT Creatinine 08/07/2021 9:40 [facility] Comment: Question specimen contaminated. This is a corrected result. Previous result was 2.05 mg/dL on 08/06/2021 at 0718 EDT eGFR 08/07/2021 9:40 [facility] Comment: Question specimen contaminated. This is a corrected result. Previous result was 33 mL/min/1.73m2 on 08/06/2021 at 0718 EDT Total Protein 08/07/2021 9:40 [facility] Comment: Question specimen contaminated. This is a corrected result. Previous result was 5.4 g/dL on 08/06/2021 at 0718 EDT Albumin 08/07/2021 9:40 [facility] Comment: Question specimen contaminated. This is a corrected result. Previous result was 3.3 g/dL on 08/06/2021 at 0718 EDT Alkaline Phosphatase 08/07/2021 9:40 EDT [facility] Comment: Question specimen contaminated. This is a corrected result. Previous result was 46 U/L on 08/06/2021 at 0718 EDT AST 08/07/2021 9:40 EDT [facility] Comment: Question specimen contaminated. This is a corrected result. Previous result was 20 U/L on 08/06/2021 at 0718 EDT ALT 08/07/2021 9:40 EDT [facility] Comment: Question specimen contaminated. This is a corrected result. Previous result was 13 U/L on 08/06/2021 at 0718 EDT Bilirubin, Total 08/08/19 9:40 EDT [facility] Comment: Question specimen contaminated. This is a corrected result. Previous result was <0.5 mg/dL on 08/06/2021 at 0718 EDT Calcium 08/07/2021 9:40 EDT [facility] Comment: Question specimen contaminated. This is a corrected result. Previous result was 9.6 mg/dL on 08/06/2021 at 0718 EDT Albumin/Globulin Ratio 08/07/2021 9:40 T [facility] Comment: Question specimen contaminated. This is a corrected result. Previous result was 1.6 on 08/06/2021 at 0718 EDT Anion Gap 08/07/2021 9:40 EDT [facility] Comment:This is a corrected result. Previous result was 12 on 08/06/2021 at 0718 EDT Blood VENOUS BLOOD / Unknown Venipuncture / Unknown 08/06/2021 6:09 EDT 08/06/2021 6:34 EDT Yomi Arreola MD CHEMISTRY & BLOOD GA S ORDERABLES [facility] [address] [place] [address] * POCT GLUCOSE, INTERFACED (08/05/2021 14:09 EST) [facility] Glucose, POC 95 70 - 100 mg/dL 08/05/2021 14:11 EST [facility] HN LAB POC COMMENT (GLUCOSE) Test Performed by Nursing Services 08/05/2021 14:11 [facility] Blood CAPILLARY BLOOD / Unknown 08/05/2021 14:09 EST 08/05/2021 14:11 EST Sanjuana Gaona [employer] POINT OF CARE TEST O RDERABLES [facility] [address] [place] [address] * PHOSPHORUS (08/05/2021 5:31 EST) [facility] Phosphorus 3.8 2.5 - 4.5 mg/dL 08/05/2021 6:18 EST [facility] Blood VENOUS BLOOD / Unknown Venipuncture / Unknown 08/05/2021 5:31 EST 08/05/2021 5:39 EST Yomi Arreola MD CHEMISTRY & BLOOD GA S ORDERABLES Performing Organization Address [facility] Co de Phone Number [facility] [address] [place] [address] * MAGNESIUM (08/05/2021 5:31 EST) [facility] Magnesium 2.1 1.7 - 2.8 mg/dL 08/05/2021 6:18 EST [facility] Blood VENOUS BLOOD / Unknown Venipuncture / Unknown 08/05/2021 5:31 EST 08/05/2021 5:39 EST Yomi Arreola MD CHEMISTRY & BLOOD GA S ORDERABLES Performing Organization Address [facility] Co de Phone Number [facility] [address] [place] [address] * (ABNORMAL) COMPREHENSIVE METABOLIC PANEL (CMP) (08/05/2021 5:31 EST) Pathologist [facility] Sodium 138 136 - 145 mmol/L 08/05/2021 6:18 [facility] Potassium 4.2 3.5 - 5.0 mmol/L 08/05/2021 6:18 [facility] Chloride 98 96 - 110 mmol/L 08/05/2021 6:18 [facility] CO2 Total 28 22 - 32 mmol/L 08/05/2021 6:18 [facility] Glucose 109(H) 70 - 100 mg/dL 08/05/2021 6:18 [facility] BUN 51(H) 10 - 26 mg/dL 08/05/2021 6:18 [facility] Creatinine 2.24(H) 0.66 - 1.25 mg/dL 08/05/2021 6:18 [facility] eGFR 29(L) >60 mL/min/1.7 3m2 08/05/2021 6:18 [facility] Total Protein 5.9(L) 6.3 - 8.2 g/dL 08/05/2021 6:18 [facility] Albumin 3.5 3.4 - 4.9 g/dL 08/05/2021 6:18 [facility] Alkaline Phosphatase 65 38 - 126 U/L 08/05/2021 6:18 [facility] AST 18 15 - 46 U/L 08/05/2021 6:18 [facility] ALT 14 <50 U/L 08/05/2021 6:18 [facility] Bilirubin, Total <0.5 <1.4 mg/dL 08/06/19 6:18 [facility] Calcium 9.2 8.5 - 10.5 mg/dL 08/05/2021 6:18 [facility] Albumin/Globulin Ratio 1.5 1.0 - 2.5 08/05/2021 6:18 [facility] Anion Gap 12 5 - 14 08/05/2021 6:18 [facility] Blood VENOUS BLOOD / Unknown Venipuncture / Unknown 08/05/2021 5:31 EST 08/05/2021 5:39 EST Yomi Arreola MD CHEMISTRY & BLOOD GA S ORDERABLES [facility] [address] [place] [address] * (ABNORMAL) COMPLETE BLOOD COUNT AND DIFFERENTIAL (08/05/2021 5:30 EST) WBC 5.96 4.00 - 10.40 K/cmm 08/05/2021 5:50 [facility] RBC 2.78(L) 4.36 - 5.78 M/cmm 08/05/2021 5:50 [facility] Hemoglobin 8.4(L) 13.8 - 17.3 gm/dL 08/05/2021 5:50 [facility] HCT 26.2(L) 39.5 - 50.2 % 08/05/2021 5:50 [facility] MCV 94 81 - 95 fl 08/05/2021 5:50 [facility] MCH 30.2 27.6 - 33.0 pg 08/05/2021 5:50 [facility] MCHC 32.1(L) 32.8 - 36.4 gm/dL 08/05/2021 5:50 [facility] RDW-CV 13.0 <14.2 % 08/05/2021 5:50 [facility] RDW-SD 45.1 <46.0 fl 08/05/2021 5:50 [facility] PLT 199 141 - 377 K/cmm 08/05/2021 5:50 [facility] MPV 11.4 9.5 - 12.7 fl 08/05/2021 5:50 [facility] % Neutrophils 54.9 % 08/05/2021 5:50 [facility] % Lymphocytes 18.8 % 08/05/2021 5:50 [facility] % Monocytes 11.6 % 08/05/2021 5:50 [facility] % Eosinophils 13.1 % 08/05/2021 5:50 [facility] % Basophils 1.3 % 08/05/2021 5:50 [facility] % Immature Grans 0.3 % 08/06/19 5:50 [facility] Absolute Neutrophils 3.27 2.20 - 8.85 K/cmm 08/05/2021 5:50 [facility] Absolute Lymphocytes 1.12 1.09 - 3.30 K/cmm 08/05/2021 5:50 [facility] Absolute Monocytes 0.69 0.10 - 0.80 K/cmm 08/05/2021 5:50 [facility] Absolute Eosinophils 0.78(H) 0.03 - 0.61 K/cmm 08/05/2021 5:50 [facility] ABS Basophils 0.08 0.01 - 0.11 K/cmm 08/05/2021 5:50 [facility] Absolute Immature Grans 0.02 0.00 - 0.06 K/cmm 08/05/2021 5:50 [facility] Type of Differential: Auto 08/05/2021 5:50 [facility] Blood VENOUS BLOOD / Unknown Venipuncture / Unknown 08/05/2021 5:30 EST 08/05/2021 5:39 EST Yomi Arreola MD PACKAGES & DNA PROBE ORDERABLES [facility] [address] [place] [address] * POCT GLUCOSE, INTERFACED (08/04/2021 5:06 EST) Glucose, POC 96 70 - 100 mg/dL 08/04/2021 5:11 [facility] HN LAB POC COMMENT (GLUCOSE) Test Performed by Nursing Services 08/04/2021 5:11 [facility] Blood CAPILLARY BLOOD / Unknown 08/04/2021 5:06 EST 08/04/2021 5:11 EST [facility] Gaona [employer] POINT OF CARE TEST O RDERABLES [facility] [address] [place] [address] * PHOSPHORUS (08/04/2021 4:57 EST) [facility] Phosphorus 3.9 2.5 - 4.5 mg/dL 08/04/2021 5:44 [facility] Blood VENOUS BLOOD / Unknown Venipuncture / Unknown 08/04/2021 4:57 EST 08/04/2021 5:13 EST Yomi Arreola MD CHEMISTRY & BLOOD GA S ORDERABLES Performing Organization Address [facility] Co de Phone Number [facility] [address] [place] [address] * MAGNESIUM (08/04/2021 4:57 EST) [facility] Magnesium 2.4 1.7 - 2.8 mg/dL 08/04/2021 5:44 [facility] Blood VENOUS BLOOD / Unknown Venipuncture / Unknown 08/04/2021 4:57 EST 08/04/2021 5:13 EST Yomi Arreola MD CHEMISTRY & BLOOD GA S ORDERABLES Performing Organization Address [facility] Co de Phone Number [facility] [address] [place] [address] * (ABNORMAL) COMPLETE BLOOD COUNT AND DIFFERENTIAL (08/04/2021 4:57 EST) [facility] WBC 6.83 4.00 - 10.40 K/cmm 08/04/2021 5:19 [facility] RBC 3.17(L) 4.36 - 5.78 M/cmm 08/04/2021 5:19 [facility] Hemoglobin 9.6(L) 13.8 - 17.3 gm/dL 08/04/2021 5:19 [facility] HCT 29.4(L) 39.5 - 50.2 % 08/04/2021 5:19 [facility] MCV 93 81 - 95 fl 08/04/2021 5:19 [facility] MCH 30.3 27.6 - 33.0 pg 08/04/2021 5:19 [facility] MCHC 32.7(L) 32.8 - 36.4 gm/dL 08/04/2021 5:19 [facility] RDW-CV 13.1 <14.2 % 08/04/2021 5:19 [facility] RDW-SD 45.1 <46.0 fl 08/04/2021 5:19 [facility] PLT 236 141 - 377 K/cmm 08/04/2021 5:19 [facility] MPV 11.3 9.5 - 12.7 fl 08/04/2021 5:19 [facility] % Neutrophils 60.8 % 08/04/2021 5:19 [facility] % Lymphocytes 17.4 % 08/04/2021 5:19 [facility] % Monocytes 12.0 % 08/04/2021 5:19 [facility] % Eosinophils 8.8 % 08/04/2021 5:19 [facility] % Basophils 0.7 % 08/04/2021 5:19 [facility] % Immature Grans 0.3 % 08/05/19 5:19 [facility] Absolute Neutrophils 4.15 2.20 - 8.85 K/cmm 08/04/2021 5:19 [facility] Absolute Lymphocytes 1.19 1.09 - 3.30 K/cmm 08/04/2021 5:19 [facility] Absolute Monocytes 0.82(H) 0.10 - 0.80 K/cmm 08/04/2021 5:19 [facility] Absolute Eosinophils 0.60 0.03 - 0.61 K/cmm 08/04/2021 5:19 [facility] ABS Basophils 0.05 0.01 - 0.11 K/cmm 08/04/2021 5:19 [facility] Absolute Immature Grans 0.02 0.00 - 0.06 K/cmm 08/04/2021 5:19 [facility] Type of Differential: Auto 08/04/2021 5:19 [facility] Blood VENOUS BLOOD / Unknown Venipuncture / Unknown 08/04/2021 4:57 EST 08/04/2021 5:13 EST Yomi Arreola MD PACKAGES & DNA PROBE ORDERABLES [facility] [address] [place] [address] * (ABNORMAL) COMPREHENSIVE METABOLIC PANEL (CMP) (08/04/2021 4:57 EST) Sodium 139 136 - 145 mmol/L 08/04/2021 5:44 [facility] Potassium 4.6 3.5 - 5.0 mmol/L 08/04/2021 5:44 [facility] Chloride 96 96 - 110 mmol/L 08/04/2021 5:44 [facility] CO2 Total 33(H) 22 - 32 mmol/L 08/04/2021 5:44 [facility] Glucose 95 70 - 100 mg/dL 08/04/2021 5:44 [facility] BUN 53(H) 10 - 26 mg/dL 08/04/2021 5:44 [facility] Creatinine 2.35(H) 0.66 - 1.25 mg/dL 08/04/2021 5:44 [facility] eGFR 28(L) >60 mL/min/1.7 3m2 08/04/2021 5:44 [facility] Total Protein 6.6 6.3 - 8.2 g/dL 08/04/2021 5:44 [facility] Albumin 4.1 3.4 - 4.9 g/dL 08/04/2021 5:44 [facility] Alkaline Phosphatase 78 38 - 126 U/L 08/04/2021 5:44 [facility] AST 19 15 - 46 U/L 08/04/2021 5:44 [facility] ALT 16 <50 U/L 08/04/2021 5:44 [facility] Bilirubin, Total <0.5 <1.4 mg/dL 08/05/19 5:44 [facility] Calcium 9.3 8.5 - 10.5 mg/dL 08/04/2021 5:44 [facility] Albumin/Globulin Ratio 1.6 1.0 - 2.5 08/04/2021 5:44 [facility] Anion Gap 10 5 - 14 08/04/2021 5:44 EST [facility] Blood VENOUS BLOOD / Unknown Venipuncture / Unknown 08/04/2021 4:57 EST 08/04/2021 5:13 EST Yomi Arreola MD CHEMISTRY & BLOOD GA S ORDERABLES Performing Organization Address City/[facility] Co de Phone Number [facility] [address] [place] [address] * POCT GLUCOSE, INTERFACED (08/03/2021 5:44 EST) Glucose, POC 92 70 - 100 mg/dL 08/03/2021 5:45 EST [facility] HN LAB POC COMMENT (GLUCOSE) Test Performed by Nursing Services 08/03/2021 5:45 EST [facility] Blood CAPILLARY BLOOD / Unknown 08/03/2021 5:44 EST 08/03/2021 5:45 EST Sanjuana Gaona [employer] POINT OF CARE TEST O RDERABLES [facility] [address] [place] [address] * PHOSPHORUS (08/03/2021 5:38 EST) Phosphorus 4.2 2.5 - 4.5 mg/dL 08/03/2021 6:47 EST [facility] Blood VENOUS BLOOD / Unknown Venipuncture / Unknown 08/03/2021 5:38 EST 08/03/2021 6:03 EST Yomi Arreola MD CHEMISTRY & BLOOD GA S ORDERABLES [facility] [address] [place] [address] * MAGNESIUM (08/03/2021 5:38 EST) Pathologist [facility] Magnesium 2.4 1.7 - 2.8 mg/dL 08/03/2021 6:47 [facility] Blood VENOUS BLOOD / Unknown Venipuncture / Unknown 08/03/2021 5:38 EST 08/03/2021 6:03 EST Yomi Arreola MD CHEMISTRY & BLOOD GA S ORDERABLES Performing Organization Address City/[facility] Co de Phone Number [facility] [address] [place] [address] * (ABNORMAL) COMPLETE BLOOD COUNT AND DIFFERENTIAL (08/03/2021 5:38 EST) [facility] WBC 5.81 4.00 - 10.40 K/cmm 08/03/2021 6:07 [facility] RBC 3.16(L) 4.36 - 5.78 M/cmm 08/03/2021 6:07 [facility] Hemoglobin 9.7(L) 13.8 - 17.3 gm/dL 08/03/2021 6:07 [facility] HCT 28.7(L) 39.5 - 50.2 % 08/03/2021 6:07 [facility] MCV 91 81 - 95 fl 08/03/2021 6:07 [facility] MCH 30.7 27.6 - 33.0 pg 08/03/2021 6:07 [facility] MCHC 33.8 32.8 - 36.4 gm/dL 08/03/2021 6:07 [facility] RDW-CV 13.1 <14.2 % 08/03/2021 6:07 [facility] RDW-SD 43.4 <46.0 fl 08/03/2021 6:07 [facility] PLT 223 141 - 377 K/cmm 08/03/2021 6:07 [facility] MPV 11.6 9.5 - 12.7 fl 08/03/2021 6:07 [facility] % Neutrophils 56.0 % 08/03/2021 6:07 [facility] % Lymphocytes 18.6 % 08/03/2021 6:07 [facility] % Monocytes 14.1 % 08/03/2021 6:07 [facility] % Eosinophils 10.0 % 08/03/2021 6:07 [facility] % Basophils 1.0 % 08/03/2021 6:07 [facility] % Immature Grans 0.3 % 08/04/19 6:07 [facility] Absolute Neutrophils 3.25 2.20 - 8.85 K/cmm 08/03/2021 6:07 [facility] Absolute Lymphocytes 1.08(L) 1.09 - 3.30 K/cmm 08/03/2021 6:07 [facility] Absolute Monocytes 0.82(H) 0.10 - 0.80 K/cmm 08/03/2021 6:07 [facility] Absolute Eosinophils 0.58 0.03 - 0.61 K/cmm 08/03/2021 6:07 [facility] ABS Basophils 0.06 0.01 - 0.11 K/cmm 08/03/2021 6:07 [facility] Absolute Immature Grans 0.02 0.00 - 0.06 K/cmm 08/03/2021 6:07 [facility] Type of Differential: Auto 08/03/2021 6:07 [facility] Blood VENOUS BLOOD / Unknown Venipuncture / Unknown 08/03/2021 5:38 EST 08/03/2021 6:00 EST Yomi Arreola MD PACKAGES & DNA PROBE ORDERABLES [facility] [address] [place] [address] * (ABNORMAL) COMPREHENSIVE METABOLIC PANEL (CMP) (08/03/2021 5:38 EST) Sodium 137 136 - 145 mmol/L 08/03/2021 6:47 [facility] Potassium 4.8 3.5 - 5.0 mmol/L 08/03/2021 6:47 [facility] Chloride 98 96 - 110 mmol/L 08/03/2021 6:47 [facility] CO2 Total 27 22 - 32 mmol/L 08/03/2021 6:47 [facility] Glucose 99 70 - 100 mg/dL 08/03/2021 6:47 [facility] BUN 49(H) 10 - 26 mg/dL 08/03/2021 6:47 [facility] Creatinine 2.43(H) 0.66 - 1.25 mg/dL 08/03/2021 6:47 [facility] eGFR 27(L) >60 mL/min/1.7 3m2 08/03/2021 6:47 [facility] Total Protein 6.5 6.3 - 8.2 g/dL 08/03/2021 6:47 [facility] Albumin 4.0 3.4 - 4.9 g/dL 08/03/2021 6:47 [facility] Alkaline Phosphatase 75 38 - 126 U/L 08/03/2021 6:47 [facility] AST 18 15 - 46 U/L 08/03/2021 6:47 [facility] ALT 18 <50 U/L 08/03/2021 6:47 [facility] Bilirubin, Total <0.5 <1.4 mg/dL 08/04/19 6:47 [facility] Calcium 9.1 8.5 - 10.5 mg/dL 08/03/2021 6:47 [facility] Albumin/Globulin Ratio 1.6 1.0 - 2.5 08/03/2021 6:47 [facility] Anion Gap 12 5 - 14 08/03/2021 6:47 [facility] Blood VENOUS BLOOD / Unknown Venipuncture / Unknown 08/03/2021 5:38 EST 08/03/2021 6:03 EST Yomi Arreola MD CHEMISTRY & BLOOD GA S ORDERABLES Performing Organization Address City/[facility] Co de Phone Number [facility] [address] [place] [address] * (ABNORMAL) POCT GLUCOSE, INTERFACED (08/02/2021 4:46 EST) Glucose, POC 115(H) 70 - 100 mg/dL 08/02/2021 4:46 EST [facility] HN LAB POC COMMENT (GLUCOSE) Test Performed by Nursing Services 08/02/2021 4:46 EST [facility] Blood CAPILLARY BLOOD / Unknown 08/02/2021 4:46 EST 08/02/2021 4:46 EST Sanjuana Gaona [employer] POINT OF CARE TEST O RDERABLES Performing Organization Address City/[facility]/ZIP Co de Phone Number [facility] [address] [place] [address] * PHOSPHORUS (08/02/2021 4:39 EST) Phosphorus 4.2 2.5 - 4.5 mg/dL 08/02/2021 5:13 EST [facility] Blood VENOUS BLOOD / Unknown Venipuncture / Unknown 08/02/2021 4:39 EST 08/02/2021 4:45 EST Yomi Arreola MD CHEMISTRY & BLOOD GA S ORDERABLES Performing Organization Address City/[facility] Co de Phone Number [facility] [address] [place] [address] * MAGNESIUM (08/02/2021 4:39 EST) Magnesium 2.2 1.7 - 2.8 mg/dL 08/02/2021 5:13 EST [facility] Blood VENOUS BLOOD / Unknown Venipuncture / Unknown 08/02/2021 4:39 EST 08/02/2021 4:45 EST Yomi Arreola MD CHEMISTRY & BLOOD GA S ORDERABLES [facility] [address] [place] [address] * (ABNORMAL) COMPLETE BLOOD COUNT AND DIFFERENTIAL (08/02/2021 4:39 EST) WBC 4.40 4.00 - 10.40 K/cmm 08/02/2021 4:53 [facility] RBC 2.98(L) 4.36 - 5.78 M/cmm 08/02/2021 4:53 [facility] Hemoglobin 9.3(L) 13.8 - 17.3 gm/dL 08/02/2021 4:53 [facility] HCT 27.1(L) 39.5 - 50.2 % 08/02/2021 4:53 [facility] MCV 91 81 - 95 fl 08/02/2021 4:53 [facility] MCH 31.2 27.6 - 33.0 pg 08/02/2021 4:53 [facility] MCHC 34.3 32.8 - 36.4 gm/dL 08/02/2021 4:53 [facility] RDW-CV 13.2 <14.2 % 08/02/2021 4:53 [facility] RDW-SD 43.6 <46.0 fl 08/02/2021 4:53 [facility] PLT 203 141 - 377 K/cmm 08/02/2021 4:53 [facility] MPV 11.3 9.5 - 12.7 fl 08/02/2021 4:53 [facility] % Neutrophils 51.6 % 08/02/2021 4:53 [facility] % Lymphocytes 20.0 % 08/02/2021 4:53 [facility] % Monocytes 12.5 % 08/02/2021 4:53 [facility] % Eosinophils 14.3 % 08/02/2021 4:53 [facility] % Basophils 0.9 % 08/02/2021 4:53 [facility] % Immature Grans 0.7 % 08/03/19 4:53 [facility] Absolute Neutrophils 2.27 2.20 - 8.85 K/cmm 08/02/2021 4:53 [facility] Absolute Lymphocytes 0.88(L) 1.09 - 3.30 K/cmm 08/02/2021 4:53 [facility] Absolute Monocytes 0.55 0.10 - 0.80 K/cmm 08/02/2021 4:53 [facility] Absolute Eosinophils 0.63(H) 0.03 - 0.61 K/cmm 08/02/2021 4:53 [facility] ABS Basophils 0.04 0.01 - 0.11 K/cmm 08/02/2021 4:53 [facility] Absolute Immature Grans 0.03 0.00 - 0.06 K/cmm 08/02/2021 4:53 [facility] Type of Differential: Auto 08/02/2021 4:53 [facility] Blood VENOUS BLOOD / Unknown Venipuncture / Unknown 08/02/2021 4:39 EST 08/02/2021 4:45 EST Yomi Arreola MD PACKAGES & DNA PROBE ORDERABLES Performing Organization Address City/State/[facility] Co de Phone Number [facility] [address] [place] [address] * (ABNORMAL) COMPREHENSIVE METABOLIC PANEL (CMP) (08/02/2021 4:39 EST) Sodium 134(L) 136 - 145 mmol/L 08/02/2021 5:13 [facility] Potassium 4.1 3.5 - 5.0 mmol/L 08/02/2021 5:13 [facility] Chloride 100 96 - 110 mmol/L 08/02/2021 5:13 [facility] CO2 Total 23 22 - 32 mmol/L 08/02/2021 5:13 [facility] Glucose 115(H) 70 - 100 mg/dL 08/02/2021 5:13 [facility] BUN 43(H) 10 - 26 mg/dL 08/02/2021 5:13 [facility] Creatinine 2.10(H) 0.66 - 1.25 mg/dL 08/02/2021 5:13 [facility] eGFR 32(L) >60 mL/min/1.7 3m2 08/02/2021 5:13 [facility] Total Protein 6.1(L) 6.3 - 8.2 g/dL 08/02/2021 5:13 [facility] Albumin 3.5 3.4 - 4.9 g/dL 08/02/2021 5:13 [facility] Alkaline Phosphatase 75 38 - 126 U/L 08/02/2021 5:13 [facility] AST 21 15 - 46 U/L 08/02/2021 5:13 [facility] ALT 20 <50 U/L 08/02/2021 5:13 [facility] Bilirubin, Total <0.5 <1.4 mg/dL 08/03/19 5:13 [facility] Calcium 8.9 8.5 - 10.5 mg/dL 08/02/2021 5:13 [facility] Albumin/Globulin Ratio 1.3 1.0 - 2.5 08/02/2021 5:13 [facility] Anion Gap 11 5 - 14 08/02/2021 5:13 [facility] Blood VENOUS BLOOD / Unknown Venipuncture / Unknown 08/02/2021 4:39 EST 08/02/2021 4:45 EST Yomi Arreola MD CHEMISTRY & BLOOD GA S ORDERABLES [facility] [address] [place] [address] * POCT GLUCOSE, INTERFACED (08/01/2021 22:07 EST) Glucose, POC 87 70 - 100 mg/dL 08/01/2021 22:08 EST [facility] HN LAB POC COMMENT (GLUCOSE) Test Performed by Nursing Services 08/01/2021 22:08 EST [facility] Blood CAPILLARY BLOOD / Unknown 08/01/2021 22:07 EST 08/01/2021 22:08 EST Sanjuana Gaona [employer] POINT OF CARE TEST O RDERABLES Performing Organization Address [facility]/ZIP Co de Phone Number [facility] [address] [place] [address] * POCT GLUCOSE, INTERFACED (08/01/2021 14:46 EST) Glucose, POC 83 70 - 100 mg/dL 08/01/2021 14:47 EST [facility] HN LAB POC COMMENT (GLUCOSE) Test Performed by Nursing Services 08/01/2021 14:47 EST [facility] Blood CAPILLARY BLOOD / Unknown 08/01/2021 14:46 EST 08/01/2021 14:47 EST Sanjuana Gaona [employer] POINT OF CARE TEST O RDERABLES Performing Organization Address [facility] de Phone Number [facility] [address] [place] [address] * [place] UGI WO AIR W RAILROAD BRAKE OPERATOR (08/01/2021 10:35 EST) Anatomical Region Laterality Modality Body Radio Fluoroscop y 08/01/2021 12:1 4 EST Impressions 08/01/2021 12:14 EST 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 There is slow transit of contrast from the herniated portion of the gastric fundus into the supradiaphragmatic proximal duodenum with ultimate passage of contrast below the diaphragmatic hiatus. I have personally reviewed the images and the above interpretation and agree with the findings. Narrative 08/01/2021 12:14 EST FL UGI WO AIR W RAILROAD BRAKE OPERATOR ??08/01/2021 9:35 AM Signs and Symptoms/Comments: ?? History of paraesophageal hernia with obstruction - please evaluate if there is contrast flow through the gastric body to the duodenum. Comparison: Abdominal radiograph 08/01/2021, aside CT abdomen pelvis 07/23/2021 Technique: Single contrast views of the thoracic esophagus and stomach were initially obtained with water soluble contrast, and subsequently single-contrast views of the thoracic esophagus, stomach, and duodenal bulb and sweep were obtained with thin barium. The patient was able to tolerate oral intake of contrast. Findings: Inspector Multifocal Lens KUB demonstrates a large air and contrast-filled paraesophageal hernia. The side-port of the transesophageal tube is below the GE junction. The tip of the partially imaged central venous catheter approaches the upper cavoatrial junction. There is residual contrast in the colon. Surgical clips project over the lumbar spine. Study shows a normally-distensible thoracic esophagus. There is a complex paraesophageal hernia which demonstrates gastroesophageal junction below the level of the diaphragm. The gastric fundus is below level of the diaphragm. The gastric body reenters the esophageal hiatus and lies above the diaphragm. The duodenal bulb and sweep are below the level of the diaphragm. ?? Procedure Note Sheng Wallace MD - 08/01/2021 [place] UGI WO AIR W RAILROAD BRAKE OPERATOR 08/01/2021 9:35 AM Signs and Symptoms/Comments: History of paraesophageal hernia with obstruction - please evaluate ifthere is contrast flow through the gastric body to the duodenum. Comparison: Abdominal radiograph 08/01/2021, aside CT abdomen pelvis 07/23/2021 Technique: Single contrast views of the thoracic esophagus and stomach were initiallyobtained with water soluble contrast, and subsequently single-contrastviews of the thoracic esophagus, stomach, and duodenal bulb and sweep wereobtained with thin barium. The patient was able to tolerate oral intake ofcontrast. Findings: Inspector Multifocal Lens KUB demonstrates a large air and contrast-filled paraesophagealhernia. The side-port of the transesophageal tube is below the GEjunction. The tip of the partially imaged central venous catheterapproaches the upper cavoatrial junction. There is residual contrast inthe colon. Surgical clips project over the lumbar spine. Study shows a normally-distensible thoracic esophagus. There is a complex paraesophageal hernia which demonstratesgastroesophageal junction below the level of the diaphragm. The gastricfundus is below level of the diaphragm. The gastric body reenters theesophageal hiatus and lies above the diaphragm. The duodenal bulb andsweep are below the level of the diaphragm. IMPRESSION Complex large paraesophageal hernia status post repair without evidence ofobstruction. There is slow transit of contrast from the herniated portionof the gastric fundus into the supradiaphragmatic proximal duodenum withultimate passage of contrast below the diaphragmatic hiatus. I have personally reviewed the images and the above interpretation andagree with the findings. Ashlie Greene MD IMG FLUOROSCOPY [facility]ON [facility]ANTOS * XR ABDOMEN 1 VIEW (08/01/2021 8:34 EST) Anatomical Region Laterality Modality Body Computed Radiogr aphy 08/01/2021 9:15 EST Impressions 08/01/2021 9:15 EST 1. Nonobstructive bowel gas pattern, with interval transit of radiopaque contrast now present within the descending colon and rectum. Unchanged appearance of the retained contrast, likely within the thoracic portion of the stomach. 2. Transesophageal tube and side-port are just below the level of the GE junction. I have personally reviewed the images and the above interpretation and agree with the findings. Narrative 08/01/2021 9:15 EST XR ABDOMEN 1 VIEW ??08/01/2021 7:55 AM Clinical History/Comments: s.p barium swallow at [facility] yesterday. Please evaluate contrast. Diagnosis of paraesophageal hernia Comparison: Multiple prior comparison abdominal radiographs, most recently 07/28/2021. Prior chest radiographs, most recently 07/31/[address] abdomen and pelvis 07/23/2021. Technique: AP supine view of the abdomen was obtained. Findings: Transesophageal tube and side-port are seen terminating just below the level of the GE junction within the stomach. Surgical clips are seen projecting over the midline of the abdomen. Nonobstructive bowel gas pattern. A small amount of contrast within the thorax, incompletely imaged is likely residual ingested contrast within the thoracic portion of the stomach and is minimally changed from radiograph 07/31/2021. Remainder of the contrast is seen throughout the colon and rectum. Relative to comparison radiographs, there has been interval transit of the contrast, with contrast now seen within the descending colon and rectum. No intraperitoneal free air. No pneumatosis. No portal venous gas. Aside from mild degenerative change, no concerning osseous lesions. Procedure Note Rory Madrid MD - 08/01/2021 XR ABDOMEN 1 VIEW 08/01/2021 7:55 AM Clinical History/Comments: s.p barium swallow at [facility] yesterday. Please evaluate contrast. Diagnosisof paraesophageal hernia Comparison: Multiple prior comparison abdominal radiographs, most recently07/28/2021. Prior chest radiographs, most recently 07/31/[address] abdomenand pelvis 07/23/2021. Technique: AP supine view of the abdomen was obtained. Findings: Transesophageal tube and side-port are seen terminating just below thelevel of the GE junction within the stomach. Surgical clips are seenprojecting over the midline of the abdomen. Nonobstructive bowel gas pattern. A small amount of contrast within thethorax, incompletely imaged is likely residual ingested contrast withinthe thoracic portion of the stomach and is minimally changed fromradiograph 07/31/2021. Remainder of the contrast is seen throughout thecolon and rectum. Relative to comparison radiographs, there has beeninterval transit of the contrast, with contrast now seen within thedescending colon and rectum. No intraperitoneal free air. No pneumatosis. No portal venous gas. Asidefrom mild degenerative change, no concerning osseous lesions. IMPRESSION 1. Nonobstructive bowel gas pattern, with interval transit of radiopaquecontrast now present within the descending colon and rectum. Unchangedappearance of the retained contrast, likely within the thoracic portion ofthe stomach. 2. Transesophageal tube and side-port are just below the level of the GEjunction. I have personally reviewed the images and the above interpretation andagree with the findings. Ashlie Greene MD [facility] [place] ORDERABLES * (ABNORMAL) COMPLETE BLOOD COUNT AND DIFFERENTIAL (08/01/2021 5:26 EST) WBC 6.37 4.00 - 10.40 K/cmm 08/01/2021 5:37 EST [facility] RBC 2.70(L) 4.36 - 5.78 M/cmm 08/01/2021 5:37 EST [facility] Hemoglobin 8.1(L) 13.8 - 17.3 gm/dL 08/01/2021 5:37 [facility] HCT 24.9(L) 39.5 - 50.2 % 08/01/2021 5:37 [facility] MCV 92 81 - 95 fl 08/01/2021 5:37 [facility] MCH 30.0 27.6 - 33.0 pg 08/01/2021 5:37 [facility] MCHC 32.5(L) 32.8 - 36.4 gm/dL 08/01/2021 5:37 [facility] RDW-CV 13.2 <14.2 % 08/01/2021 5:37 [facility] RDW-SD 44.2 <46.0 fl 08/01/2021 5:37 [facility] PLT 167 141 - 377 K/cmm 08/01/2021 5:37 [facility] MPV 11.5 9.5 - 12.7 fl 08/01/2021 5:37 [facility] % Neutrophils 62.4 % 08/01/2021 5:37 [facility] % Lymphocytes 14.4 % 08/01/2021 5:37 [facility] % Monocytes 9.7 % 08/01/2021 5:37 [facility] % Eosinophils 12.1 % 08/01/2021 5:37 [facility] % Basophils 0.9 % 08/01/2021 5:37 [facility] % Immature Grans 0.5 % 08/02/19 5:37 [facility] Absolute Neutrophils 3.97 2.20 - 8.85 K/cmm 08/01/2021 5:37 [facility] Absolute Lymphocytes 0.92(L) 1.09 - 3.30 K/cmm 08/01/2021 5:37 [facility] Absolute Monocytes 0.62 0.10 - 0.80 K/cmm 08/01/2021 5:37 [facility] Absolute Eosinophils 0.77(H) 0.03 - 0.61 K/cmm 08/01/2021 5:37 [facility] ABS Basophils 0.06 0.01 - 0.11 K/cmm 08/01/2021 5:37 EST [facility] Absolute Immature Grans 0.03 0.00 - 0.06 K/cmm 08/01/2021 5:37 EST [facility] Type of Differential: Auto 08/01/2021 5:37 EST [facility] Blood BLOOD SAMPLE TAKEN FROM CENTRAL LINE / Unknown Venipuncture / Unknown 08/01/2021 5:26 EST 08/01/2021 5:30 EST Yomi Arreola MD PACKAGES & DNA PROBE ORDERABLES Performing Organization Address [facility] Co de Phone Number [facility] [address] [place] [address] * PHOSPHORUS (08/01/2021 5:25 EST) Phosphorus 3.8 2.5 - 4.5 mg/dL 08/01/2021 6:07 EST [facility] Blood VENOUS BLOOD / Unknown Venipuncture / Unknown 08/01/2021 5:25 EST 08/01/2021 5:30 EST Yomi Arreola MD CHEMISTRY & BLOOD GA S ORDERABLES Performing Organization Address [facility] Co de Phone Number [facility] [address] [place] [address] * MAGNESIUM (08/01/2021 5:25 EST) Magnesium 2.3 1.7 - 2.8 mg/dL 08/01/2021 6:07 EST [facility] Blood VENOUS BLOOD / Unknown Venipuncture / Unknown 08/01/2021 5:25 EST 08/01/2021 5:30 EST Yomi Arreola MD CHEMISTRY & BLOOD GA S ORDERABLES Performing Organization Address [facility] de Phone Number [facility] [address] [place] [address] * (ABNORMAL) COMPREHENSIVE METABOLIC PANEL (CMP) (08/01/2021 5:25 EST) Sodium 131(L) 136 - 145 mmol/L 08/01/2021 6:07 [facility] Potassium 4.2 3.5 - 5.0 mmol/L 08/01/2021 6:07 [facility] Chloride 100 96 - 110 mmol/L 08/01/2021 6:07 [facility] CO2 Total 18(L) 22 - 32 mmol/L 08/01/2021 6:07 [facility] Glucose 79 70 - 100 mg/dL 08/01/2021 6:07 [facility] BUN 44(H) 10 - 26 mg/dL 08/01/2021 6:07 [facility] Creatinine 1.89(H) 0.66 - 1.25 mg/dL 08/01/2021 6:07 [facility] eGFR 36(L) >60 mL/min/1.7 3m2 08/01/2021 6:07 [facility] Total Protein 5.3(L) 6.3 - 8.2 g/dL 08/01/2021 6:07 [facility] Albumin 3.0(L) 3.4 - 4.9 g/dL 08/01/2021 6:07 [facility] Alkaline Phosphatase 69 38 - 126 U/L 08/01/2021 6:07 [facility] AST 20 15 - 46 U/L 08/01/2021 6:07 [facility] ALT 19 <50 U/L 08/01/2021 6:07 [facility] Bilirubin, Total <0.5 <1.4 mg/dL 08/02/19 6:07 [facility] Calcium 7.4(L) 8.5 - 10.5 mg/dL 08/01/2021 6:07 [facility] Albumin/Globulin Ratio 1.3 1.0 - 2.5 08/01/2021 6:07 [facility] Anion Gap 13 5 - 14 08/01/2021 6:07 [facility] Blood VENOUS BLOOD / Unknown Venipuncture / Unknown 08/01/2021 5:25 EST 08/01/2021 5:30 EST Yomi Arreola MD CHEMISTRY & BLOOD GA S ORDERABLES Performing Organization Address [facility] Co de Phone Number [facility] [address] [place] [address] * COVID-19 TEST [facility] PCR (07/31/2021 21:37 EST) Swab BOTH ANTERIOR NARES / Unknown Swab / Unknown 07/31/2021 21:37 EST 07/31/2021 21:43 EST Yomi Arreola MD MICROBIOLOGY - GENER AL ORDERABLES Performing Organization Address [facility] Co de Phone Number [facility] [address] [place] [id number] * COVID-19 TESTING (07/31/2021 21:37 EST) COVID-19 rt-PCR Result Negative Negative 08/01/2021 2:11 EST [facility] Comment: This test has not [...] clinical observations, patient history, and epidemiological information. Performed on the [employer] instrument Performing Lab [facility] 08/01/2021 2:11 EST [facility] Swab BOTH ANTERIOR NARES / Unknown Swab / Unknown 07/31/2021 21:37 EST 07/31/2021 21:43 EST Yomi Arreola MD MICROBIOLOGY - GENER AL ORDERABLES Performing Organization Address [facility] Co de Phone Number [facility] [address] [place] [address] * PHOSPHORUS (07/31/2021 21:36 EST) Phosphorus 4.0 2.5 - 4.5 mg/dL 07/31/2021 21:59 EST [facility] Blood VENOUS BLOOD / Unknown Venipuncture / Unknown 07/31/2021 21:36 EST 07/31/2021 21:43 EST Yomi Arreola MD CHEMISTRY & BLOOD GA S ORDERABLES Performing Organization Address [facility] Co de Phone Number [facility] [address] [place] [address] * MAGNESIUM (07/31/2021 21:36 EST) Magnesium 2.1 1.7 - 2.8 mg/dL 07/31/2021 21:59 EST [facility] Blood VENOUS BLOOD / Unknown Venipuncture / Unknown 07/31/2021 21:36 EST 07/31/2021 21:43 EST Yomi Arreola MD CHEMISTRY & BLOOD GA S ORDERABLES Performing Organization Address [facility] Co de Phone Number [facility] [address] [place] [address] * (ABNORMAL) COMPLETE BLOOD COUNT AND DIFFERENTIAL (07/31/2021 21:36 EST) WBC 8.00 4.00 - 10.40 K/cmm 07/31/2021 21:55 EST [facility] RBC 3.23(L) 4.36 - 5.78 M/cmm 07/31/2021 21:55 EST [facility] Hemoglobin 9.9(L) 13.8 - 17.3 gm/dL 07/31/2021 21:55 EST [facility] HCT 29.1(L) 39.5 - 50.2 % 07/31/2021 21:55 [facility] MCV 90 81 - 95 fl 07/31/2021 21:55 [facility] MCH 30.7 27.6 - 33.0 pg 07/31/2021 21:55 [facility] MCHC 34.0 32.8 - 36.4 gm/dL 07/31/2021 21:55 [facility] RDW-CV 13.1 <14.2 % 07/31/2021 21:55 [facility] RDW-SD 43.8 <46.0 fl 07/31/2021 21:55 [facility] PLT 186 141 - 377 K/cmm 07/31/2021 21:55 [facility] MPV 11.6 9.5 - 12.7 fl 07/31/2021 21:55 [facility] % Neutrophils 75.2 % 07/31/2021 21:55 [facility] % Lymphocytes 8.9 % 07/31/2021 21:55 [facility] % Monocytes 6.6 % 07/31/2021 21:55 [facility] % Eosinophils 7.9 % 07/31/2021 21:55 [facility] % Basophils 0.8 % 07/31/2021 21:55 [facility] % Immature Grans 0.6 % 08/01/19 21:55 [facility] Absolute Neutrophils 6.02 2.20 - 8.85 K/cmm 07/31/2021 21:55 [facility] Absolute Lymphocytes 0.71(L) 1.09 - 3.30 K/cmm 07/31/2021 21:55 [facility] Absolute Monocytes 0.53 0.10 - 0.80 K/cmm 07/31/2021 21:55 [facility] Absolute Eosinophils 0.63(H) 0.03 - 0.61 K/cmm 07/31/2021 21:55 [facility] ABS Basophils 0.06 0.01 - 0.11 K/cmm 07/31/2021 21:55 [facility] Absolute Immature Grans 0.05 0.00 - 0.06 K/[facility] 07/31/2021 21:55 [facility] Type of Differential: Auto 07/31/2021 21:55 [facility] Blood BLOOD SAMPLE TAKEN FROM CENTRAL LINE / Unknown Venipuncture / Unknown 07/31/2021 21:36 EST 07/31/2021 21:43 EST Yomi Arreola MD PACKAGES & DNA PROBE ORDERABLES [facility] [address] [place] [address] * (ABNORMAL) COMPREHENSIVE METABOLIC PANEL (CMP) (07/31/2021 21:36 EST) Sodium 134(L) 136 - 145 mmol/L 07/31/2021 21:59 [facility] Potassium 4.4 3.5 - 5.0 mmol/L 07/31/2021 21:59 [facility] Chloride 100 96 - 110 mmol/L 07/31/2021 21:59 [facility] CO2 Total 21(L) 22 - 32 mmol/L 07/31/2021 21:59 [facility] Glucose 96 70 - 100 mg/dL 07/31/2021 21:59 [facility] BUN 53(H) 10 - 26 mg/dL 07/31/2021 21:59 [facility] Creatinine 2.22(H) 0.66 - 1.25 mg/dL 07/31/2021 21:59 [facility] eGFR 30(L) >60 mL/min/1.7 3m2 07/31/2021 21:59 [facility] Total Protein 6.7 6.3 - 8.2 g/dL 07/31/2021 21:59 [facility] Albumin 4.1 3.4 - 4.9 g/dL 07/31/2021 21:59 [facility] Alkaline Phosphatase 89 38 - 126 U/L 07/31/2021 21:59 [facility] AST 25 15 - 46 U/L 07/31/2021 21:59 [facility] ALT 27 <50 U/L 07/31/2021 21:59 [facility] Bilirubin, Total <0.5 <1.4 mg/dL 08/01/19 21:59 [facility] Calcium 9.0 8.5 - 10.5 mg/dL 07/31/2021 21:59 [facility] Albumin/Globulin Ratio 1.6 1.0 - 2.5 07/31/2021 21:59 [facility] Anion Gap 13 5 - 14 07/31/2021 21:59 [facility] Blood VENOUS BLOOD / Unknown Venipuncture / Unknown 07/31/2021 21:36 EST 07/31/2021 21:43 EST Yomi Arreola MD CHEMISTRY & BLOOD GA S ORDERABLES Performing Organization Address [facility] Co de Phone Number [facility] [address] [place] [address] * XR CHEST PORTABLE 1 VIEW (07/31/2021 20:31 EST) Anatomical Region Laterality Modality Computed Radiogr aphy 07/31/2021 20:3 9 EST Impressions 07/31/2021 20:39 EST 1. ??PICC line tip ends at the cavoatrial junction. Narrative 07/31/2021 20:39 EST XR CHEST PORTABLE 1 VIEW ??07/31/2021 8:20 PM CLINICAL HISTORY/COMMENTS: Confirm PICC line location COMPARISON: Chest x-ray July 27, 2021, July 26, 2021, July 25, 2021. CT chest abdomen pelvis July 23, 2021. FINDINGS: Single portable AP view of the chest. Lines/tubes: ??The right-sided PICC line tip ends at the cavoatrial junction. An enteric tube passes into the left upper quadrant, and outside the [id number]. Soft tissues, bones and extrathoracic findings: There is a large hiatal hernia with residual ingested contrast material in the thoracic portion of the stomach. Cardiac and mediastinal contours: Normal. Lungs: There is atelectasis at the left lower lung related to the presence of large hiatal hernia. Pleura: No visible pleural abnormalities. Procedure Note Paola Thomas MD - 07/31/2021 XR CHEST PORTABLE 1 VIEW 07/31/2021 8:20 PM CLINICAL HISTORY/COMMENTS: Confirm PICC line location COMPARISON: Chest x-ray July 27, 2021, July 26, 2021, July 25, 2021. CT chest abdomenpelvis July 23, 2021. FINDINGS: Single portable AP view of the chest. Lines/tubes: The right-sided PICC line tip ends at the cavoatrialjunction. An enteric tube passes into the left upper quadrant, and outsidethe [id number]. Soft tissues, bones and extrathoracic findings: There is a large hiatalhernia with residual ingested contrast material in the thoracic portion ofthe stomach. Cardiac and mediastinal contours: Normal. Lungs: There is atelectasis at the left lower lung related to the presenceof large hiatal hernia. Pleura: No visible pleural abnormalities. IMPRESSION 1. PICC line tip ends at the cavoatrial junction. Yomi Arreola MD IMG DIAGNOSTIC IMAGI NG ORDERABLES documented in this encounter Visit Diagnoses [...] Action Action Date Dose Rate Site acetaminophen (OFIRMEV) IV solution 1,000 mg 1,000 mg, intravenous, NOW X1, 1 dose, On 07/31/21 at 2000, Is the patient NPO? If No, state reason why oral acetaminophen cannot be used in Comment field. Yes, Is this patient nothing by rectum? If No, state why rectal acetaminophen cannot be used in the Comment field. Yes, Are NSAIDs contraindicated in this patient? Yes, Is the patient in ED, PACU or ICU? No, STAT Given 07/31/2021 21:17 EST 1,000 mg acetaminophen (OFIRMEV) IV solution 1,000 mg 1,000 mg, intravenous, NOW X1, 1 dose, On Sat08/01/21 at 0200, Is the patient NPO? If No, state reason why oral acetaminophen cannot be used in Comment field. Yes, Is this patient nothing by rectum? If No, state why rectal acetaminophen cannot be used in the Comment field. Yes, Are NSAIDs contraindicated in this patient? Yes, Is the patient in ED, PACU or ICU? No, Routine Given 08/01/2021 1:55 EST 1,000 mg acetaminophen (OFIRMEV) IV solution 1,000 mg 1,000 mg, intravenous, NOW X1, 1 dose, On Sat08/01/21 at 0800, Is the patient NPO? If No, state reason why oral acetaminophen cannot be used in Comment field. Yes, Is this patient nothing by rectum? If No, state why rectal acetaminophen cannot be used in the Comment field. Yes, Are NSAIDs contraindicated in this patient? Yes, Is the patient in ED, PACU or ICU? No, Routine Given 08/01/2021 8:02 EST 1,000 mg acetaminophen (OFIRMEV) IV solution 1,000 mg 1,000 mg, intravenous, NOW X1, 1 dose, On Sat08/01/21 at 1400, Is the patient NPO? If No, state reason why oral acetaminophen cannot be used in Comment field. Yes, Is this patient nothing by rectum? If No, state why rectal acetaminophen cannot be used in the Comment field. Yes, Are NSAIDs contraindicated in this patient? Yes, Is the patient in ED, PACU or ICU? No, Routine Given 08/01/2021 14:47 EST 1,000 mg acetaminophen (OFIRMEV) IV solution 1,000 mg 1,000 mg, intravenous, NOW X1, 1 dose, On Sat08/02/21 at 1915, Is the patient NPO? If No, state reason why oral acetaminophen cannot be used in Comment field. Yes, Is this patient nothing by rectum? If No, state why rectal acetaminophen cannot be used in the Comment field. Yes, Are NSAIDs contraindicated in this patient? Yes, Is the patient in ED, PACU or ICU? No, Routine Given 08/02/2021 19:33 EST 1,000 mg acetaminophen (OFIRMEV) IV solution 1,000 mg 1,000 mg, intravenous, NOW X1, 1 dose, On Ladan08/03/22 at 0130, Is the patient NPO? If No, state reason why oral acetaminophen cannot be used in Comment field. Yes, Is this patient nothing by rectum? If No, state why rectal acetaminophen cannot be used in the Comment field. Yes, Are NSAIDs contraindicated in this patient? Yes, Is the patient in ED, PACU or ICU? No, Routine Given 08/03/2021 1:06 EST 1,000 mg acetaminophen (OFIRMEV) IV solution 1,000 mg 1,000 mg, intravenous, NOW X1, 1 dose, On Ladan 08/03/21 at 0730, Is the patient NPO? If No, state reason why oral acetaminophen cannot be used in Comment field. Yes, Is this patient nothing by rectum? If No, state why rectal acetaminophen cannot be used in the Comment field. Yes, Are NSAIDs contraindicated in this patient? Yes, Is the patient in ED, PACU or ICU? No, Routine Given 08/03/2021 7:15 EST 1,000 mg acetaminophen (OFIRMEV) IV solution 1,000 mg 1,000 mg, intravenous, NOW X1, 1 dose, On Sat08/04/21 at 0800, Is the patient NPO? If No, state reason why oral acetaminophen cannot be used in Comment field. Yes, Is this patient nothing by rectum? If No, state why rectal acetaminophen cannot be used in the Comment field. Yes, Are NSAIDs contraindicated in this patient? Yes, Is the patient in ED, PACU or ICU? No, Routine Given 08/04/2021 10:15 EST 1,000 mg acetaminophen (OFIRMEV) IV solution 1,000 mg 1,000 mg, intravenous, NOW X1, 1 dose, On Sat08/04/21 at 1400, Is the patient NPO? If No, state reason why oral acetaminophen cannot be used in Comment field. Yes, Is this patient nothing by rectum? If No, state why rectal acetaminophen cannot be used in the Comment field. Yes, Are NSAIDs contraindicated in this patient? Yes, Is the patient in ED, PACU or ICU? No, Routine Given 08/04/2021 15:15 EST 1,000 mg Adult Parenteral Nutrition central line, at 63 mL/hr, ADULT NUTRITION, Starting on Sat08/01/21 at 2100, Until Sat08/02/21 at 2232, Release Rate Documented 08/02/2021 8:00 EST 63 mL/hr New Bag 08/01/2021 22:33 EST 63 mL/hr Adult Parenteral Nutrition central line, at 63 mL/hr, ADULT NUTRITION, Starting on 08/02/21 at 2100, Until Ladan 08/03/21 at 2059, Release New Bag 08/02/2021 21:00 EST 63 mL/hr Adult Parenteral Nutrition central line, at 75 mL/hr, ADULT NUTRITION, Starting on Ladan 08/03/21 at 2100, Until Sat08/04/21 at 2103, Release Rate Documented 08/04/2021 7:10 EST 75 mL/hr New Bag 08/03/2021 21:04 EST 75 mL/hr Adult Parenteral Nutrition central line, at 75 mL/hr, ADULT NUTRITION, Starting on 08/04/21 at 2100, Until 08/05/21 at 203, Release Rate Documented 08/05/2021 7:00 EST 75 mL/hr Rate Documented 08/05/2021 6:00 EST 75 mL/hr New Bag 08/04/2021 20:33 EST 75 mL/hr Adult Parenteral Nutrition central line, ADULT CYCLE, Starting on 08/05/21 at 2100, Until 08/06/21 at 1429 Rate Change 08/06/2021 14:04 EDT 60 mL/hr Rate Documented 08/06/2021 13:57 EDT 120 mL/hr Rate Change 08/05/2021 22:33 EST 120 mL/hr Adult Parenteral Nutrition central line, ADULT CYCLE, Starting on 08/06/21 at 2100, Until 08/07/21 at 1248 Rate Change 08/07/2021 12:17 EDT 60 mL/hr Rate Documented 08/07/2021 7:08 EDT 120 mL/hr Rate Change 08/06/2021 21:54 EDT 120 mL/hr Adult Parenteral Nutrition central line, ADULT CYCLE, Starting on 08/07/21 at 2100, Until Tu08/08/21 at 1348 Rate Change 08/08/2021 12:58 EDT 60 mL/hr Rate Documented 08/08/2021 7:55 EDT Rate Change 08/07/2021 22:49 EDT 120 mL/hr Adult Parenteral Nutrition central line, ADULT CYCLE, Starting on Tu08/08/21 at 2100, Until Sat08/09/21 at 0903 Rate Change 08/09/2021 8:30 EDT 80 mL/hr Rate Documented 08/09/2021 7:27 EDT Rate Change 08/08/2021 22:12 EDT 164 mL/hr calcium carbonate (TUMS) 200 mg calcium (500 mg) per chewable tablet tablet,chewable 1 Tablet 1 Tablet, oral, NOW X1, 1 dose, On Sat08/03/21 at 1530, Routine Given 08/03/2021 15:31 EST 1 Tablet calcium carbonate (TUMS) 200 mg calcium (500 mg) per chewable tablet tablet,chewable 2 Tablet 2 Tablet, oral, 4 TIMES DAILY PRN, Starting on Sat08/06/21 at 1142, Until Sat08/11/21 at 1447, Heartburn, Routine Given 08/11/2021 8:16 EDT 2 Tablets Given 08/11/2021 6:05 EDT 2 Tablets Given 08/10/2021 23:56 EDT 2 Tablets electrolyte-A (PLASMALYTE-A) solution 100 mL/hr, intravenous, CONTINUOUS, Starting on Sat07/31/21 at 2000, Until Sat08/01/21 at 1851, Routine New Bag 08/01/2021 17:56 EST 100 mL/hr 100 mL/hr New Bag 08/01/2021 8:02 EST 100 mL/hr 100 mL/hr Rate Documented 08/01/2021 7:44 EST 100 mL/hr 100 mL/hr fat emulsion 20 % infusion 250 mL 250 mL, intravenous, Administer over 24 Hours, ADULT NUTRITION, Starting on Sat08/01/21 at 2100, Until Sat08/02/21 at 0804, Routine, Release New Bag 08/01/2021 22:33 EST 250 mL 10.42 mL/hr fat emulsion 20 % infusion 250 mL 250 mL, intravenous, Administer over 24 Hours, ADULT NUTRITION, Starting on Sat08/03/21 at 2100, Until 08/05/21 at 0004, Routine, Release Rate Documented 08/04/2021 7:10 EST 10.42 mL/hr New Bag 08/03/2021 21:05 EST 250 mL 10.42 mL/hr fat emulsion 20 % infusion 250 mL 250 mL, intravenous, Administer over 24 Hours, CONTINUOUS, Starting on Sat08/04/21 at 2100, Until 08/05/21 at 2033, Routine Rate Documented 08/05/2021 7:00 EST 10.42 mL/hr Rate Documented 08/05/2021 6:00 EST 10.42 mL/hr New Bag 08/04/2021 20:34 EST 250 mL 10.42 mL/hr fat emulsion 20 % infusion 250 mL 250 mL, intravenous, Administer over 16 Hours, CONTINUOUS, Starting on 08/05/21 at 2100, Until Sat08/06/21 at 1429, Routine New Bag 08/05/2021 21:30 EST 250 mL 15.63 mL /hr fat emulsion 20 % infusion 250 mL 250 mL, intravenous, Administer over 16 Hours, CONTINUOUS, Starting on Sat08/06/21 at 2100, Until Sat08/07/21 at 1247, Routine Rate Documented 08/07/2021 7:08 EDT 15.63 mL/hr New Bag 08/06/2021 20:48 EDT 250 mL 15.63 mL/hr fat emulsion 20 % infusion 250 mL 250 mL, intravenous, Administer over 16 Hours, CONTINUOUS, Starting on Sat08/07/21 at 2100, Until Sat08/08/21 at 1348, Routine Rate Documented 08/08/2021 7:56 EDT 15.63 mL/hr New Bag 08/07/2021 21:49 EDT 250 mL 15.63 mL/hr fat emulsion 20 % infusion 250 mL 250 mL, intravenous, Administer over 12 Hours, CONTINUOUS, Starting on Sat08/08/21 at 2100, Until Sat08/09/21 at 0750, Routine Rate Documented 08/09/2021 7:27 EDT 20.83 mL/hr New Bag 08/08/2021 21:04 EDT 250 mL 20.83 mL/hr heparin injection 5,000 Units 5,000 Units, subcutaneous, EVERY 8 HOURS, First dose on Sat08/01/21 at 0000, Until Discontinued, Routine Given 08/10/2021 23:51 EDT 5,000 Units Given 08/10/2021 15:36 EDT 5,000 Units Given 08/10/2021 7:39 EDT 5,000 Units HYDROmorphone (PF) (DILAUDID) 0.5 mg/0.5 mL syringe 0.2-0.4 mg 0.2-0.4 mg, intravenous, EVERY 4 HOURS PRN, Starting on Sat07/31/21 at 1936, Until Sat08/02/21 at 1832, Pain, Routine Given 08/02/2021 15:58 EST 0.4 mg Given 08/02/2021 11:44 EST 0.4 mg Given 08/02/2021 5:08 EST 0.2 mg HYDROmorphone (PF) (DILAUDID) 0.5 mg/0.5 mL syringe 0.5 mg 0.5 mg, intravenous, EVERY 4 HOURS PRN, Starting on Sat08/02/21 at 1832, Until Sat08/09/21 at 0750, Moderate Pain 4-6, Routine Given 08/09/2021 7:01 EDT 0.5 mg Given 08/09/2021 2:56 EDT 0.5 mg Given 08/08/2021 23:03 EDT 0.5 mg metoprolol TARtrate (LOPRESSOR) 5 mg in sodium chloride (NS) 0.9 % 50 mL IVPB 5 mg, intravenous, Administer over 20 Minutes, EVERY 6 HOURS, First dose on Sat07/31/21 at 2030, Until Discontinued, STAT Given 08/09/2021 2:59 EDT 5 mg Given 08/08/2021 20:56 EDT 5 mg Given 08/08/2021 14:25 EDT 5 mg metoprolol TARtrate (LOPRESSOR) tablet 12.5 mg 12.5 mg, oral, 2 TIMES DAILY, First dose on Sat08/09/21 at 0900, Until Discontinued, Routine Given 08/11/2021 8:16 EDT 12 .5 mg Given 08/10/2021 20:24 EDT 12.5 mg Given 08/10/2021 9:53 EDT 12.5 mg ondansetron (PF) (ZOFRAN) injection 4 mg 4 mg, intravenous, EVERY 4 HOURS PRN, Starting on Sat08/04/21 at 0726, Until Sat08/11/21 at 1447, Nausea, Routine oxyCODONE (ROXICODONE) solution 5 mg 5 mg, oral, EVERY 3 HOURS PRN, Starting on Sat08/09/21 at 0749, Until Sat08/10/21 at 1336, Pain, Routine Given 08/10/2021 13:19 EDT 5 mg Given 08/10/2021 6:02 EDT 5 mg Given 08/10/2021 2:59 EDT 5 mg pantoprazole (PROTONIX) injection 40 mg 40 mg, intravenous, 2 TIMES DAILY, First dose on 07/31/21 at 2100, Until Discontinued, Routine Given 08/08/2021 2 0:57 EDT 40 mg Given 08/08/2021 10:02 EDT 40 mg Given 08/07/2021 21:48 EDT 40 mg pantoprazole (PROTONIX) tablet 40 mg 40 mg, oral, DAILY BEFORE BREAKFAST, First dose on 08/09/21 at 0815, Until Discontinued, Routine Given 08/11/2021 6:01 EDT 40 mg Given 08/10/2021 6:03 EDT 40 mg Given 08/09/2021 9:06 EDT 40 mg traMADol (ULTRAM) tablet 50 mg 50 mg, oral, EVERY 6 HOURS PRN, Starting on Ladan 08/10/21 at 1335, Until Sat08/11/21 at 1447, Pain, Moderate Pain 4-6, Routine Given 08/11/2021 12:04 EDT 50 mg Given 08/11/2021 6:01 EDT 50 mg Given 08/10/2021 23:50 EDT 50 mg documented in this encounter Discontinued Medications Medication Sig Discontinue Reason Start Date End Da te oxyCODONE (ROXICODONE) 5 mg immediate release tablet Take 1 Tablet by mouth every 6 hours as needed for Pain. Daily Max: 20 mg 08/10/2021 08/11/2021 pantoprazole (PROTONIX) 40 mg tablet Take 1 Tablet by mouth daily before breakfast for 30 days. 08/11/2021 08/11/2021 metoprolol TARtrate (LOPRESSOR) 25 mg tablet Take 0.5 Tablets by mouth 2 times daily. 08/11/2021 08/11/2021 documented as of this encounter Historical Medications * This list may reflect changes made after this encounter. Medication Sig Dispensed Refills Start Date End Date allopurinoL (ZYLOPRIM) 100 mg tablet Take 100 mg by mouth daily. omeprazole (PRILOSEC) 20 mg capsule Take 40 mg by mouth every morning. 10/21/2021 added in this encounter Active and Recently Administered Medications Times are shown in EDT. Scheduled Medication Order 08/09/2021 08/10/2021 08/11/2021 heparin injection 5,000 Units 5,000 Units, subcutaneous, EVERY 8 HOURS, First dose on Sat08/01/21 at 0000, Until Discontinued, Routine 0906 (Given - Provider: Donna Carpenter RN)1615 (Not Given - Provider: Donna Carpenter RN - Reason: Patient/family refused)2358 (Given - Provider: John Rocha RN) 0739 (Given - Provider: Nima Castano RN)1536 (Given - Provider: Nima Castano, RN)2351 (Given - Provider: John Rocha, LOYD) 0817 (Not Given - Provider: Nima Castano RN - Reason: Other - Comment: Patient planning to d/c.) metoprolol TARtrate (LOPRESSOR) 5 mg in sodium chloride (NS) 0.9 % 50 mL IVPB (CANCELED) 5 mg, intravenous, Administer over 20 Minutes, EVERY 6 HOURS, First dose on Sat07/31/21 at 2030, Until Discontinued, STAT 0259 (Given - Provider: John Rocha, LOYD) metoprolol TARtrate (LOPRESSOR) tablet 12.5 mg 12.5 mg, oral, 2 TIMES DAILY, First dose on Sat08/09/21 at 0900, Until Discontinued, Routine 0905 (Given - Provider: Donna Carpenter RN)2017 (Given - Provider: John Rocha, LOYD) 0953 (Given - Provider: Nima Castano, LOYD)2023 (Given - Provider: John Rocha, LOYD) 0816 (Given - Provider: Nima Castano, LOYD) pantoprazole (PROTONIX) tablet 40 mg 40 mg, oral, DAILY BEFORE BREAKFAST, First dose on Sat08/09/21 at 0815, Until Discontinued, Routine 09 (Given - Provider: Donna Carpenter RN) 0603 (Given - Provider: John Rocha, LOYD) 0601 (Given - Provider: John Rocha, LOYD) Continuous Medication Order 08/09/2021 08/10/2021 08/11/2021 Adult Parenteral Nutrition () central line, ADULT CYCLE, Starting on Sat08/08/21 at 2100, Until Sat08/09/21 at 0903 0727 (Rate Documented - Provider: Donna Carpenter RN)0830 (Rate Change - Provider: Donna Carpenter RN) fat emulsion 20 % infusion 250 mL (CANCELED) 250 mL, intravenous, Administer over 12 Hours, CONTINUOUS, Starting on Sat08/08/21 at 2100, Until Sat08/09/21 at 0750, Routine 0727 (Rate Documented - Provider: Donna Carpenter RN)0908 (Completed - Provider: Donna Carpenter RN) PRN Medication Order 08/09/2021 08/10/2021 08/11/2021 calcium carbonate (TUMS) 200 mg calcium (500 mg) per chewable tablet tablet,chewable 2 Tablet 2 Tablet, oral, 4 TIMES DAILY PRN, Starting on Sat08/06/21 at 1142, Until Sat08/11/21 at 1447, Heartburn, Routine 0804 (Given - Provider: Donna Carpenter RN)1611 (Given - Provider: Dnona Carpenter RN)2358 (Given - Provider: John Rocha, LOYD) 0738 (Given - Provider: Nima Castano, LOYD)1536 (Given - Provider: Nima Castano, RN)2026 (Given - Provider: John Rocha, LOYD)2356 (Given - Provider: John Rocha, LOYD) 0605 (Given - Provider: John Rocha, RN)0816 (Given - Provider: Nima Castano, LOYD) HYDROmorphone (PF) (DILAUDID) 0.5 mg/0.5 mL syringe 0.5 mg (CANCELED) 0.5 mg, intravenous, EVERY 4 HOURS PRN, Starting on Sat08/02/21 at 1832, Until Sat08/09/21 at 0750, Moderate Pain 4-6, Routine 0256 (Given - Provider: John Rocha RN)0701 (Given - Provider: John Rocha, LOYD) ondansetron (PF) (ZOFRAN) injection 4 mg 4 mg, intravenous, EVERY 4 HOURS PRN, Starting on Sat08/04/21 at 0726, Until Sat08/11/21 at 1447, Nausea, Routine oxyCODONE (ROXICODONE) solution 5 mg (CANCELED) 5 mg, oral, EVERY 3 HOURS PRN, Starting on 08/09/21 at 0749, Until Ladan 08/10/21 at 1336, Pain, Routine 1116 (Given - Provider: Donna Carpenter, RN)1611 (Given - Provider: Donna Carpenter, RN)2018 (Given - Provider: John Rocha, LOYD)2358 (Given - Provider: John Rocha RN) 0259 (Given - Provider: John Rocha, RN)0602 (Given - Provider: John Rocha, RN)1319 (Given - Provider: Nima Castano, RN) traMADol (ULTRAM) tablet 50 mg 50 mg, oral, EVERY 6 HOURS PRN, Starting on Ladan 08/10/21 at 1335, Until 08/11/21 at 1447, Pain, Moderate Pain 4-6, Routine 1735 (Given - Provider: Nima Castnao, LOYD)2350 (Given - Provider: John Rocha RN) 0601 (Given - Provider: John Rocha, LOYD)1204 (Given - Provider: Nima Castano, RN) documented in this encounter Orders Medications Ordered That Kenneth ht Not Have Been Administered Count Last Ordered Date First Ordered Date Adult Parenteral Nutrition 3 08/09/2021 0 08/05/2021 fat emulsion 20 % infusion 250 mL 2 022 08/05/2021 aluminum & magnesium hydroxi de-simethicone (MYLANTA-DS) 400-400-40 mg/5 mL suspension 15 mL 1 08/06/2021 calcium carbonate (TUMS) 200 mg calcium (500 mg) per chewable tablet tablet,chewable 2 Tablet 1 08/06/2021 ondansetron (PF) (ZOFRAN) injection 4 mg 1 08/04/2021 acetaminophen (TYLENOL) solu tion unit dose cup 650 mg 1 08/02/2021 Diet Count Last Ordered Date First Orde red Date DISCHARGE DIET 1 08/11/2021 Nursing Count Last Ordered Date First Orde red Date ACTIVITY INSTRUCTIONS 1 08/10/2021 BATHING INSTRUCTIONS 1 08/10/2021 WOUND CARE INSTRUCTIONS 1 08/10/2021 TUBE MAINTENANCE 1 07/31/2021 Consult Count Last Ordered Date First Orde red Date CONSULT NUTRITION 1 07/31/2021 IV Count Last Ordered Date First Orde red Date IV REQUEST 3 08/11/2021 07/31/2021 Admission Count Last Ordered Date First Orde red Date ADMIT TO INPATIENT 1 08/01/2021 Discharge Count Last Ordered Date First Orde red Date DISCHARGE PATIENT 1 08/11/2021 documented in this encounter Care Teams Breaker Mechanic Relationship Specialty Start Date End Date Jovani Wharton DO [address] [place] [id number] PCP - General 10/11/16 10/17/21 documented as of this encounter
--- OUTSIDE RECORDS SUMMARY | 2023-12-10 04:58 | XMS_ITS | Encounter Summary ---
Author Organization [facility] Address [address] [place] [address] Care Team Providers Care Manager Asset Management Name Role Phone Jovani Wharton DO Primary Care Provider [phone] Encounter Details Date Type Department Care Team (Latest Contact Info) Description 09/12/2018 15:00 EDT - 09/12/2018 23:59 EDT Hospital Encounter [address] [address] Unknown, Provider, Discharge Disposition: Home or Self Care Social History Tobacco Use Types Packs/Day Years Used Date Smoking Tobacco: Never Assessed Sex and Gender Information Value Date Recorded Sex Assigned at Not on file Gender Identity Male 10/18/2021 9:41 EDT Sexual Orientation Not on file documented as of this encounter Discharge Disposition Disposition Code Departure Means Destination Home or Self [facility] documented in this encounter Plan of Treatment Not on file documented as of this encounter Visit Diagnoses Not on filedocumented in this encounter Care Teams Manager Asset Management Relationship Specialty Start Date End Date Jovani Wharton DO [address] [place] [address] PCP - General 10/11/16 10/17/21 documented as of this encounter
--- OUTSIDE RECORDS SUMMARY | 2023-12-10 04:58 | XMS_ITS | Encounter Summary ---
Author Organization [facility] [place] [address] Care Team Providers Care Special Service Officer Name Role Phone Govind Mendes Primary Care Provider + Encounter Details Date Type Department Care Team (Late st Contact Info) Description 11/26/2023 Orders Only Nephrology [place] [phone] Lizet Hayward RN CKD (chronic kidney disease) stage 4, GFR 15-29 ml/min (Primary Dx); Primary hypertension Social History Tobacco Use Types Packs/Day Years [...] 7:30 AM EDT Hospital Encounter [place] [phone] Lawrence Gar MD [facility] [place] [address] 01/02/2024 7:30 AM EDT - 01/02/2024 8:30 AM EDT Surgery [place] [address] Lawrence Gar MD [facility] [place] [address] EGD, UPPER GI ENDOSCOPY (WRVU 2.09) 11/17/2024 4:20 PM EDT Office Visit [place] [address] Lawrence Gar MD [facility] [place] [address] Scheduled Orders Name Type Priority Associated Diagnoses Orde r Schedule Basic Metabolic Panel (non-fasting) Lab Routine CKD (chronic kidney disease) stage 4, GFR 15-29 ml/min Primary hypertension Expected: 12/23/2023 (Approximate), Expires: 11/25/2024 Scheduled Procedures Name Priority Associated Diagnoses Date/Ti me EGD, UPPER GI ENDOSCOPY (WRVU 2.09) Sharma's esophagus with dysplasia 01/02/2024 7:30 AM EDT documented as of this encounter Visit Diagnoses Diagnosis CKD (chronic kidney disease) stage 4, GFR 15-29 ml/min- Primary Chronic kidney disease, Stage IV (severe) Primary hypertension Unspecified essential hypertension Sharma's esophagus with dysplasia Sharma's esophagus documented in this encounter Care Teams Special Service Officer Relationship Specialty Start Date End Date Govind [place] [address] PCP - General Internal Medicine 11/06/23 documented as of this encounter
--- OUTSIDE RECORDS SUMMARY | 2023-12-10 04:58 | XMS_ITS | Encounter Summary ---
Author Organization [facility] Address [address] [place] [address] Care Team Providers Care Lace Tearing Supervisor Name Role Phone Unavailable Primary Care Provider Unavailabl e Encounter Details Date Type Department Care Team (Late st Contact Info) Description 09/24/2007 Results Only [facility] [address] [place] [address] Jovani Wharton, DO [address] [place], [place] [address] Social History Tobacco Use Types Packs/Day Years Used Date Smoking Tobacco: Never Assessed Sex and Gender Information Value Date Recorded Sex Assigned at Not on file Gender Identity Male 10/18/2021 9:41 EDT Sexual Orientation Not on file documented as of this encounter Plan of Treatment Not on file documented as of this encounter Procedures Procedure Name Priority Date/Time Associated Diagnosis Comments SURGICAL PATHOLOGY Routine 09/24/2007 0:00 EDT documented in this encounter Results * SURGICAL PATHOLOGY (09/24/2007 0:00 EDT) Pathology Report: SURGICAL PATHOLOGY REPORT Reports generated via electronic interface contain original data; however they are lacking the format of the original report. Caution should be taken when reading/interpreting unformatted reports. Name: ? MATHEW LINK ? Accession #: ? [id number] ? : ? 1955 (Age: 52) ??M ? Collect Date: ? 09/24/2007 ? Location: ? [facility] ? Receive Date: ? 09/24/2007 ? Provider: JOVANI WHARTON DO Copy to: ? Final Pathologic Diagnosis: ? Skin of back, right mid, shave biopsy: - Seborrheic keratosis, inflamed. Microscopic Description: ? Orthohyperkeratosis and focal parakeratosis thicken the stratum corneum. There is formation of horn pseudocysts. ??The epidermis is hyperplastic with acanthosis and papillomatosis. ??The keratinocytes have a basaloid appearance with squamous eddies in many areas. ??Within the dermis, there is a moderately dense lymphohistiocytic infiltrate. ??The infiltrate extends into the epidermis with concomitant vacuolar change and keratinocyte necrosis. ??(Dr. Walton)/[facility] Document reviewed and electronically signed by: DIMITRI WALTON MD Report ??Date: 09/26/2007 15:14 By the signature above, the attending physician certifies that he/she has personally conducted a gross and/or microscopic examination of the described specimens and rendered or confirmed the above diagnosis. Specimen(s) Received: ? Atypical lesion mid back R side Clinical History: ? Not listed Gross Description: ? Received in formalin labelled Gingue and mid back ??R side is a mario-white and mario-pink to mario-brown skin punch biopsy measuring 0.3 cm in diameter and excised to a depth of 0.2 cm. ??The specimen is submitted intact in one cassette. ??(Lisset Gorman)/[facility] End of Report JACOBO RODGERS 09/24/2007 09/24/2007 17: 40 EDT Jovani Wharton DO PATHOLOGY ORDERABL ES [facility] [address] [place] [address] documented in this encounter Visit Diagnoses Not on filedocumented in this encounter
--- OUTSIDE RECORDS SUMMARY | 2023-12-10 04:58 | XMS_ITS | Encounter Summary ---
Author Organization [facility] Address [address] [place] [address] Care Team Providers Care Vp Platforms Name Role Phone Jovani Wharton DO Primary Care Provider [phone] Jorge Chauhan MD Primary Care Provider Luis Lauren MD Primary Care Provider [phone] Slade Tran MD Primary Care Provider [phone] Encounter Details Date Type Department Care Team (Late st Contact Info) Description 11/29/2019 Lab Requisition [facility] Pathology & Laboratory Medicine - [facility] [address] [place], [place] [id number] Outr Resulting Lab, Provider Social History Tobacco [...] Procedure Name Priority Date/Time Associated Diagnosis Comments DO NOT ORDER STANDALONE - BAILEY COVID TESTING Today 11/29/2019 13:07 EDT COVID-19 TESTING Routine 11/29/2019 13:0 7 EDT documented in this encounter Results * DO NOT ORDER STANDALONE - BAILEY COVID TESTING (11/29/2019 13:07 EDT) COVID-19 rt-PCR Result Not Detected Not Detected 12/01/2019 17:03 EDT [facility] Comment: This test has not been FDA cleared or approved. This test has been authorized by FDA under an EUA for use by authorized laboratories. ??This test has been authorized only for the detection of nucleic acid from SARS-CoV-2, not for any other viruses or pathogens. ??This test is only authorized for the duration of the declaration that circumstances exist justifying the authorization of emergency use of in vitro diagnostic tests for detection and/or diagnosis of COVID-19 under Section 564(b)(1) of the Act, 21 U.S.C. Section 360bbb-3(b)(1), unless the authorization is terminated or revoked sooner. ??Factsheets for healthcare providers: ??https://www.fda.gov/media/509500/download Factsheets for patients: https://www.fda.gov/media/851544/download Negative results do not preclude infection with SARS-CoV-2 virus, and should not be the sole basis of a patient management decision. Swab ENTIRE NASOPHARYNX / Unknown 11/29/2019 13:07 EDT 11/30/2019 15:49 EDT Provider Outr Resulting Lab MICROBIOLOGY - GENERAL ORDERABLES Performing Organization Address City/State/[facility] Co de Phone Number [facility] [address] [place] [address] * COVID-19 TESTING (11/29/2019 13:07 EDT) COVID-19 rt-PCR Result Not Detected Not Detected 12/01/2019 17:13 EDT [facility] Comment: This test has not been FDA cleared or approved. This test has been authorized by FDA under an EUA for use by authorized laboratories. ??This test has been authorized only for the detection of nucleic acid from SARS-CoV-2, not for any other viruses or pathogens. ??This test is only authorized for the duration of the declaration that circumstances exist justifying the authorization of emergency use of in vitro diagnostic tests for detection and/or diagnosis of COVID-19 under Section 564(b)(1) of the Act, 21 U.S.C. Section 360bbb-3(b)(1), unless the authorization is terminated or revoked sooner. ??Factsheets for healthcare providers: ??https://www.fda.gov/media/085484/download Factsheets for patients: https://www.fda.gov/media/847599/download Negative results do not preclude infection with SARS-CoV-2 virus, and should not be the sole basis of a patient management decision. Performing Lab [facility] 12/01/2019 17:13 EDT [facility] Swab 11/29/2019 13:0 7 EDT 11/30/2019 15:49 EDT Provider Outr Resulting Lab MICROBIOLOGY - GENERAL ORDERABLES [facility] [address] [place], [place] [phone] [place] [address] LABORATORY [address] [place] [address] documented in this encounter Visit Diagnoses Not on filedocumented in this encounter Additional Health Concerns Infection Onset Date Last Indicated Resolved Time R/O COVID-19 11/29/2019 11/29/2019 12/04/2019 22:1 7 EDT documented as of this encounter Care Teams Vp Platforms Relationship Specialty Start Date End Date Jovani Wharton DO [address] [place], [place] [phone] PCP - General 10/11/16 10/17/21 Jorge Chauhan MD [address] [place], [place] [address] PCP - General Family Medicine - Primary Care 10/18/21 11/22/21 Luis Lauren MD [address] [place], [place] [address] PCP - General Family Medicine - Primary Care 11/23/21 11/11/22 Slade Tran MD [address] [facility] [place] [address] PCP - General 11/12/22 documented as of this encounter
--- OUTSIDE RECORDS SUMMARY | 2023-12-10 04:58 | XMS_ITS | Encounter Summary ---
Author Organization [facility] [place] [address] Care Team Providers Care Watch Repairer Apprentice Name Role Phone Govind Mendes Primary Care [...] 2.09) COLONOSCOPY,SCREENING (WRVU 3.26) Lawrence Gar MD [facility] DR [place] [address] [facility] Referral ID Status Reason Start Date Expiration Date Visits Re quested Visits Authorized [id number] 1 1 Encounter Details Date Type Department Care Team (Late st Contact Info) Description 11/12/2023 10:46 AM EDT Anesthesia [place] [address] [facility] [address] Anesthesia Record Procedure Summary Procedure Name Responsible Anesthesiologist Anesthesia Start Time Anesthesia Stop Time EGD WITH BIOPSY (WRVU 2.39) (Trunk) Mathew Tripathi MD 11/12/23 1046 11/12/23 1130 Events Date Time Event Comment 11/12/2023 1007 1046 AN Verify 1046 Start 1046 An Start Data 1051 An Induction 1052 Anesthesia Ready 1125 an stop data 1130 Recovery or ICU Handoff Tawana ent care was transferred to the destination unit staff after review of the patient's medical history, current anesthetic/surgical status and plan, according to the Provider Handoff Checklist. 1130 Stop Meds Name Total IV Lidocaine 90 mg Propofol 60 mg Propofol INF 377.86 mg PHENYLephrine 80 mcg lactated ringers infusion 200 mL * Agents Name O2 O2 Auxiliary Flowmeter 1 * Blood No blood administrations on file. Lines, Drains, and Airways Type Details Placement Removal PIV 11/12/23; 1018; [id number] catheter system; 22 gauge; median vein (underside of arm), right; LDRAKE; 11/12/23; 1203 11/12/23 1018 by Michelle Diaz LPN 11/12/23 1203 by Veda Munson RN documented in this encounter Social History Tobacco [...] on file documented as of this encounter OR Notes * Anesthesia Postprocedure Evaluation - Mathew Tripathi MD - 11/12/2023 12:24 PM EDT Department of Anesthesiology Post-procedure Note Patient: Mathew Mendez Procedure Summary Date: 11/12/23 Room / Location: [facility] ENDO 3 / [facility] ENDOSCOPY Anesthesia Start: 1046 Anesthesia Stop: 1130 Procedures: EGD WITH BIOPSY (WRVU 2.39) (Trunk) COLONOSCOPY, POLYPECTOMY, REMOVAL LESION BY SNARE (WRVU 4.57) (Trunk) Diagnosis: (3 year) Surgeons: Lawrence Gar MD Responsible Provider: Mathew Tripathi MD Anesthesia Type: MAC ASA Status: 3 All Anesthesia Providers: Anesthesiologist: Mathew Tripathi MD INVENTORY TAKER: Dominguez Cullen CRNA Vitals Value Taken Time BP 126/84 11/12/23 1158 Temp Pulse Resp 15 11/12/23 1158 SpO2 97 % 11/12/23 1200 Pain Level 0 11/12/23 1158 Vitals shown include unfiled device data. Patient Location: PACU/[facility] Level of Consciousness: Awake and Alert Pain Management: Satisfactory Analgesia PONV: None Cardiovascular Status: At Baseline Respiratory Status: At Baseline Postoperative Fluid Status: Intravascular EUvolemia Possible Anesthetic Complications: NONE apparent at time of evaluation Final Primary Anesthesia Type: MAC (The anesthetic type performed was the same as planned.) Comments: * Anesthesia Preprocedure Evaluation - Mathew Tripathi MD - 11/11/2023 4:05 PM EDT Pre-Anesthesia Evaluation for: Mathew Mendez a 68 y.o. male. Procedure(s): EGD, UPPER GI ENDOSCOPY (WRVU 2.09) COLONOSCOPY,SCREENING (WRVU 3.26) Patient Active Problem List Diagnosis Date Noted ??? Acute kidney injury superimposed on chronic kidney disease 08/15/2022 ??? Alcohol abuse 08/15/2022 ??? Alcohol withdrawal syndrome 08/15/2022 ??? Alcoholic ketoacidosis 08/15/2022 ??? Elevated transaminase measurement 08/15/2022 ??? History of stress test 08/15/2022 ??? Hypokalemia 08/15/2022 ??? Hypomagnesemia 08/15/2022 ??? Unintended weight loss 08/15/2022 ??? Incisional hernia, without obstruction or gangrene 08/02/2022 ??? Paraesophageal hernia 08/01/2021 ??? Pancreatitis 08/09/2020 ??? Gastroesophageal reflux 08/09/2020 ??? Diverticulitis 08/09/2020 ??? Alcoholism 08/09/2020 ??? HTN (hypertension) 08/09/2020 ??? Chronic renal disease 08/09/2020 ??? Anemia 08/09/2020 ??? Gout 08/09/2020 ??? HLD (hyperlipidemia) 08/09/2020 ??? Lumbar spondylosis 08/09/2020 ??? Gallstone 08/09/2020 ??? Status post total knee replacement 08/09/2020 ??? Ruptured extensor tendon of hand or wrist 08/09/2020 ??? Alcohol-induced chronic pancreatitis 08/09/2020 ??? Screen for colon cancer 08/09/2020 ??? Gastroesophageal reflux disease 08/09/2020 ??? Gastroesophageal reflux disease with esophagitis 09/24/1995 No past medical history on file. Past Surgical History: Procedure Laterality Date ??? PRO COLONOSCOPY, REMV LESN, SNARE N/A 10/20/2020 COLONOSCOPY, POLYPECTOMY, REMOVAL LESION BY SNARE (WRVU 4.67) performed by Lawrence Gar MD at [facility] ENDOSCOPY ??? PRO UPPER GI ENDOSCOPY, BIOPSY N/A 10/20/2020 EGD WITH BIOPSY (WRVU 2.49) performed by Lawrence Gar MD at [facility] ENDOSCOPY Social History Tobacco Use ??? Smoking status: Never ??? Smokeless tobacco: Never ??? Tobacco comments: denies vaping Substance Use Topics ??? Alcohol use: Not Currently Comment: none since 03/2020 Social History Substance and Sexual Activity Drug Use Never Allergies Allergen Reactions ??? Morphine Hives Medications: MAR and/or home medications have been reviewed. Physical Exam: Preprocedure Vitals Current as of 11/11/23 1605 No BP, pulse, respiration, SpO2, or temperature recorded. Height: Weight: BMI: IBW: Airway Assessment: Mallampati: I TM distance: >3 FB Neck ROM: full Cardiovascular Assessment: Rhythm: regular system normal Pulmonary Assessment: unlabored breathing pulmonary exam normal Dental Assessment: - normal exam Misc Assessment: IV access: Peripheral line Last Filed Perioperative Cognitive Screening None Anesthesia Plan: ASA 3 MAC, with a(n) intravenous induction 68 yo gentleman for screening colonoscopy, EGD for recurrent pancreatitis screen Chart and labs reviewed; patient seen and examined PMH significant for TERE on CPAP Pancreatitis GERD Alcoholism HTN (hypertension) Chronic renal disease Gout HLD Paraesophageal hernia Assessment/Plan: ASA 3 MAC/IV sedation; routine monitors Risks, plans, and procedures discussed with patient who understands and consents; questions and concerns addressedAC/IV sedation; routine monitors Region - Other Informed Consent: Anesthetic plan and risks discussed with patient. Plan discussed with INVENTORY TAKER. Anesthesia Screening documented in this encounter Plan of Treatment Upcoming Encounters Date Type Department Care Team (Latest Contact Info) Description 01/02/2024 7:30 AM EDT Hospital Encounter [place] [address] [facility] DR [place] [address] 01/02/2024 7:30 AM EDT - 01/02/2024 8:30 AM EDT [place] [address] [facility] DR [place] [address] EGD, UPPER GI ENDOSCOPY (WRVU 2.09) 11/17/2024 4:20 PM EDT Office [place] [address] [facility] DR [place] [address] Scheduled Procedures Name Priority Associated Diagnoses Date/Ti [...] infusion 100 mL/hr, Intravenous, CONTINUOUS, Starting on Tu11/12/23 at 1030, Until Sat11/12/23 at 1204, Endoscopy (Day of Procedure) Restarted 11/12/2023 10:51 AM EDT New Bag 11/12/2023 10:30 AM EDT 100 mL/hr 100 mL/hr lidocaine (pf) (Xylocaine) (20 mg/mL) 2% injection syringe Intravenous, PRN, Starting on Sat11/12/23 at 1051, Until Sat11/12/23 at 1130, Anesthesia Intra-op, Routine Given 11/12/2023 10:51 AM EDT 90 mg PHENYLephrine in NS (PF) (CIARAN-SYNEPHRINE) 0.8 mg/10 mL (80 mcg/mL) multi-dose injection Syringe Intravenous, PRN, Starting on Sat11/12/23 at 1112, Until Sat11/12/23 at 1130, Anesthesia Intra-op, Routine Given 11/12/2023 11:12 AM EDT 80 mcg propofoL (Diprivan) (10 mg/mL) infusion Intravenous, CONTINUOUS PRN, Starting on Sat11/12/23 at 1051, Until Sat11/12/23 at 1130, Anesthesia Intra-op, Routine Rate/Dose Change 11/12/2023 11:13 AM EDT 100 mcg/kg/min 42.18 mL/hr Rate/Dose Change 11/12/2023 11:08 AM EDT 125 mcg/kg/min 52 .725 mL/hr Rate/Dose Change 11/12/2023 11:03 AM EDT 150 mcg/kg/min 63 .27 mL/hr propofoL (Diprivan) 10 mg/mL bolus injection (Anesthesia) Intravenous, PRN, Starting on Sat11/12/23 at 1051, Until Sat11/12/23 at 1130, Anesthesia Intra-op Given 11/12/2023 10:51 AM EDT 60 mg documented in this encounter Care Teams Watch Repairer Apprentice Relationship Specialty Start Date End Date Govind Mendes [place] [facility] [place] [address] PCP - General Internal Medicine 11/06/23 documented as of this encounter
--- OUTSIDE RECORDS SUMMARY | 2023-12-10 04:58 | XMS_ITS | Encounter Summary ---
Author Organization [facility] [place] [address] Care Team Providers Care Sourcing Coordinator Name Role Phone Govind Mendes Primary Care Provider + Encounter Details Date Type Department Care Team (Latest Contact Info) Description 11/19/2023 Travel Social History Tobacco Use Types Packs/Day [...] 7:30 AM EDT Hospital En[place] [address] Lawrence Gar MD [facility] [place] [address] 01/02/2024 7:30 AM EDT - 01/02/2024 8:30 AM EDT [place] [phone] Lawrence Gar MD [facility] [place] [address] EGD, UPPER GI ENDOSCOPY (WRVU 2.09) 11/17/2024 4:20 PM EDT Office [place] [address] Lawrence Gar MD [facility] [place] [address] Scheduled Procedures Name Priority Associated Diagnoses Date/Ti me EGD, UPPER GI ENDOSCOPY (WRVU 2.09) Sharma's esophagus with dysplasia 01/02/2024 7:30 AM EDT documented as of this encounter Visit Diagnoses Not on filedocumented in this encounter Care Teams Sourcing Coordinator Relationship Specialty Start Date End Date Govind Mendes [place] [address] [place] [address] PCP - General Internal Medicine 11/06/23 documented as of this encounter
--- OUTSIDE RECORDS SUMMARY | 2023-12-10 04:58 | XMS_ITS | Encounter Summary ---
Author Organization [facility] [place] [address] Care Team Providers Care Stile Ripsaw Operator Name Role Phone Govind Mendes Primary Care Provider + Encounter Details Date Type Department Care Team (Latest Contact Info) Description 11/14/2023 Travel Social History Tobacco Use Types Packs/Day [...] 7:30 AM EDT Hospital Encounter [place] [address] Lawrence Gar MD [facility] [place] [address] 01/02/2024 7:30 AM EDT - 01/02/2024 8:30 AM EDT Surgery [place] [id number] Lawrence Gar MD [facility] [place] [address] EGD, UPPER GI ENDOSCOPY (WRVU 2.09) 11/17/2024 4:20 PM EDT Office [place] [address] Lawrence Gar MD [facility] [place] [address] Scheduled Procedures Name Priority Associated Diagnoses Date/Ti me EGD, UPPER GI ENDOSCOPY (WRVU 2.09) Sharma's esophagus with dysplasia 01/02/2024 7:30 AM EDT documented as of this encounter Visit Diagnoses Not on filedocumented in this encounter Care Teams Stile Ripsaw Operator Relationship Specialty Start Date End Date Govind Mendes [place] [place] [address] PCP - General Internal Medicine 11/06/23 documented as of this encounter
--- OUTSIDE RECORDS SUMMARY | 2023-12-10 04:58 | XMS_ITS | Encounter Summary ---
Author Organization [facility] Address [address] [place] [address] Care Team Providers Care Administrative Associate Name Role Phone Jovani Wharton DO Primary Care Provider [phone] Jorge Chauhan MD Primary Care Provider Luis Lauren MD Primary Care Provider [phone] Slade Tran MD Primary Care Provider [phone] Encounter Details Date Type Department Care Team (Late st Contact Info) Description 06/11/2019 Lab Requisition [facility] Pathology & Laboratory [facility] [address] [place] [address] Unknown, Provider, Social History Tobacco Use Types Packs/Day Years [...] Associated Diagnosis Comments PSA TOTAL, DIAGNOSTIC Routine 06/11/2019 15:19 EST documented in this encounter Results * PSA TOTAL, DIAGNOSTIC (06/11/2019 15:19 EST) PSA 3.1 0.0 - 4.5 ng/mL 06/12/2019 10:26 EST [facility] Blood VENOUS BLOOD / Unknown 06/11/2019 15:19 EST 06/11/2019 22:00 EST Narrative [facility] - 06/12/2019 10:26 EST NOTE: Serum PSA concentration should not be interpreted as absolute evidence for the presence or absence of malignant disease. Assayed on Siemens ADVIA Plusmoaur XPT using chemiluminescent technology.??Values obtained by using different assay methods cannot be used interchangeably. Provider Unknown CHEMISTRY & BLOOD GA S ORDERABLES [facility] [address] [place] [address] documented in this encounter Visit Diagnoses Not on filedocumented in this encounter Additional Health Concerns Infection Onset Date Last Indicated Resolved Time R/O COVID-19 11/29/2019 11/29/2019 12/04/2019 22:1 7 EDT documented as of this encounter Care Teams Administrative Associate Relationship Specialty Start Date End Date Jovani Wharton DO [address] [place], [place] [address] PCP - General 10/11/16 10/17/21 Jorge Chauhan MD [address] [place], [place] [address] PCP - General Family Medicine - Primary Care 10/18/21 11/22/21 Luis Lauren MD [address] [place], [place] [id number] PCP - General Family Medicine - Primary Care 11/23/21 11/11/22 Slade Tran MD [facility] [place] [address] PCP - General 11/12/22 documented as of this encounter
--- OUTSIDE RECORDS SUMMARY | 2023-12-10 04:58 | XMS_ITS | Encounter Summary ---
Author Organization [facility] [place] [address] Care Team Providers Care Carbon Plant Grinder Name Role Phone Govind Mendes Primary Care Provider + Encounter Details Date Type Department Care Team (Latest Contact Info) Description 11/06/2023 7:20 AM EDT Laboratory Appointment Lab [address] [place] [phone] CKD (chronic kidney disease) stage 4, GFR 15-29 ml/min; Primary hypertension; Anemia of chronic renal failure, stage 4 (severe); Acidosis, metabolic Social History Tobacco Use Types Packs/Day Years [...] 7:30 AM EDT Hospital Encounter [place] [phone] Lawrence Gar MD [facility] [place] [address] 01/02/2024 7:30 AM EDT - 01/02/2024 8:30 AM EDT Surgery [place] [address] Lawrence Gar MD [facility] [place] [address] EGD, UPPER GI ENDOSCOPY (WRVU 2.09) 11/17/2024 4:20 PM EDT Office Visit [place] [address] Lawrence Gar MD [facility] [place] [address] Scheduled Procedures Name Priority Associated Diagnoses Date/Ti me EGD, UPPER GI ENDOSCOPY (WRVU 2.09) Sharma's esophagus with dysplasia 01/02/2024 7:30 AM EDT documented as of this encounter Procedures Procedure Name Priority Date/Time Associated Diagnosis Comments HC PROTEIN, QUANTITATIVE, URINE Routine 11/06/2023 7:48 AM EDT CKD (chronic kidney disease) stage 4, GFR 15-29 ml/min HC PARATHYROID HORMONE(PTH INTACT Routine 11/06/2023 7:37 AM EDT CKD (chronic kidney disease) stage 4, GFR 15-29 ml/min Primary hypertension Anemia of chronic renal failure, stage 4 (severe) Acidosis, metabolic HC VENIPUNCTURE Routine 11/06/2023 7:37 AM EDT CKD (chronic kidney disease) stage 4, GFR 15-29 ml/min HEMOGRAM Routine 11/06/2023 7:37 AM EDT CKD (chronic kidney disease) stage 4, GFR 15-29 ml/min DIFFERENTIAL, AUTOMATED Routine 11/06/2023 7:37 AM EDT CKD (chronic kidney disease) stage 4, GFR 15-29 ml/min GOLD TUBE HOLD Routine 11/06/2023 7:37 AM EDT HC IRON BINDING CAPACITY Routine 11/06/2023 7:37 [...] disease) stage 4, GFR 15-29 ml/min HC FERRITIN, SERUM Routine 11/06/2023 7: 37 AM EDT CKD (chronic kidney disease) stage 4, GFR 15-29 ml/min Primary hypertension Anemia of chronic renal failure, stage 4 (severe) Acidosis, metabolic HC ALBUMIN, SERUM Routine 11/06/2023 7:3 7 AM EDT CKD (chronic kidney disease) stage 4, GFR 15-29 ml/min BASIC METABOLIC PANEL (NON-FASTING) Routine 11/06/2023 7:37 AM EDT CKD (chronic kidney disease) stage 4, GFR 15-29 ml/min documented in this encounter Results * (ABNORMAL) Protein/Creatinine Ratio, urine (11/06/2023 7:48 AM EDT) U Creatinine 69 mg/dL [facility] U Protein Ran 179(H) 0 - 12 mg/dL [facility] Prot/Cre Ratio 2.6 ratio [facility] Urine 11/06/2023 7:48 AM EDT 11/06/2023 7:58 AM EDT Narrative Resulting Agency Comment Spec In Lab Jovani Richardson MD URINE ORDERABLES Performing Organization Address City/[facility]/ZIP Co de Phone Number [facility] [place] [address] * Gold Tube HOLD (11/06/2023 7:37 AM EDT) Gold Hold Sample in lab. [facility] Blood No Charge / Unknown 11/06/2023 7:37 AM EDT 11/06/2023 7:49 AM EDT Jovani Richardson MD CHEMISTRY ORDERABLES Performing Organization Address City/[facility] Co de Phone Number [facility] [place] [address] * Differential, Automated (11/06/2023 7:37 AM EDT) Neutrophils % 62.9 % [facility] Neutr Abs (ANC) 3.24 1.70 - 6.10 x10(3)/[facility] Lymphocytes % 17.5 % [facility] Lymphocytes Abs 0.9 0.9 - 3.2 x10(3)/[facility] Monocytes % 11.8 % [facility] Monocyte Abs 0.6 0.3 - 0.9 x10(3)/[facility] Eosinophils % 6.2 % [facility] Eosinophils Abs 0.3 0.0 - 0.4 x10(3)/[facility] Basophils % 1.4 % [facility] Basophils Abs 0.1 0.0 - 0.1 x10(3)/[facility] Immature Gran % 0.20 % [facility] Comment: Immature granulocytes(IG's)percentage and absolute count will include metamyelocytes, myelocytes, and promyelocytes. Blood smears from CBCs yielding IG's will be scanned manually for concordance. If this scan disagrees with the automated IG or if promyelocytes are noted, a manual differential will be performed. Raya Gran Abs 0.01 0.00 - 0.04 x10(3)/[facility] Blood 11/06/2023 7:37 AM EDT 11/06/2023 7:49 AM EDT Narrative Resulting Agency Comment Spec In Lab Jovani Richardson MD HEMATOLOGY ORDERABLE S [facility] [place] [address] * (ABNORMAL) Hemogram (11/06/2023 7:37 AM EDT) WBC 5.2 4.0 - 9.5 x10(3)/[facility] RBC 3.49(L) 4.58 - 5.54 x10(6)/[facility] Hemoglobin 10.7(L) 13.7 - 16.5 g/dL [facility] Hematocrit 33.2(L) 40.5 - 48.5 % [facility] MCV 95.1(H) 82.9 - 93.1 fL [facility] MCH 30.7 27.5 - 32.1 pg [facility] MCHC 32.2 32.0 - 35.7 g/dL [facility] Platelets 175 145 - 357 x10(3)/[facility] RDWSD 44.9 36.0 - 45.0 [facility] RDWCV 12.8 11.4 - 13.8 % [facility] MPV 10.8 7.6 - 12.9 [facility] nRBC % Auto 0.0 % [facility] nRBC Abs Auto 0.000 0.000 - 0.000 x10(3)/mcL [facility] Blood 11/06/2023 7:37 AM EDT 11/06/2023 7:49 AM EDT Narrative Resulting Agency Comment Spec In Lab Jovani Richardson MD HEMATOLOGY ORDERABLE S Performing Organization Address [facility] Co de Phone Number [facility] [place] [address] * (ABNORMAL) PTH (11/06/2023 7:37 AM EDT) PTH 113(H) 15 - 65 pg/mL [facility] Blood 11/06/2023 7:37 AM EDT 11/06/2023 7:49 AM EDT Narrative Resulting Agency Comment Spec In Lab Jovani Richardsno MD CHEMISTRY ORDERABLES Performing Organization Address [facility] Co de Phone Number [facility] [place] [address] * Ferritin (11/06/2023 7:37 AM EDT) Ferritin 97 31 - 409 ng/mL [facility] Comment: Please note that as of 05/01/2023, the reference intervals for Ferritin have been updated. Blood 11/06/2023 7:37 AM EDT 11/06/2023 7:49 AM EDT Narrative Resulting Agency Comment Spec In Lab Jovani Richardson MD CHEMISTRY ORDERABLES Performing Organization Address City/[facility] Co de Phone Number [facility] [place] [address] * Iron and TIBC (11/06/2023 7:37 AM EDT) Iron 80 45 - 160 mcg/dL [facility] TIBC 266 250 - 450 mcg/dL [facility] Iron Saturation 30 20 - 50 % [facility] Blood 11/06/2023 7:37 AM EDT 11/06/2023 7:49 AM EDT Narrative Resulting Agency Comment Spec In Lab Jovani Richardson MD CHEMISTRY ORDERABLES Performing Organization Address [facility]/ZIP Co de Phone Number [facility] [place] [address] * (ABNORMAL) Vitamin D, 25-Hydroxy (11/06/2023 7:37 AM EDT) 25-OH Vit D Total 20(L) 21 - 100 ng/mL [facility] 25-OH Vit D Interp Deficient [facility] Blood 11/06/2023 7:37 AM EDT 11/06/2023 7:49 AM EDT Narrative Resulting Agency Comment Spec In Lab Jovani Richardson MD CHEMISTRY ORDERABLES Performing Organization Address [facility] Co de Phone Number [facility] [place] [address] * (ABNORMAL) Basic Metabolic Panel (non-fasting) (11/06/2023 7:37 AM EDT) [facility] Glucose Lvl 93 65 - 199 mg/dL [facility] Comment:Diabetes: >=200 mg/d L plus symptoms BUN 56(H) 10 - 20 mg/dL [facility] Creatinine 3.08(H) 0.80 - 1.50 mg/dL [facility] Sodium 142 135 - 145 mmol/L [facility] Potassium 5.2(H) 3.5 - 5.0 mmol/L [facility] Comment: Please note: ??Patients with WBC >100,000 may have falsely elevated Potassium levels. ??For accurate Potassium quantification in these patients send serum separator tube (gold top) for subsequent determinations. ??Contact the Clinical Chemistry Laboratory if there are any questions. Chloride 108(H) 98 - 107 mmol/L [facility] CO2 21(L) 22 - 31 mmol/L [facility] Anion Gap 13 5 - 15 mmol/L [facility] Calcium 9.0 8.5 - 10.5 mg/dL [facility] Estimated GFR 21(L) >=60 mL/min/1. 73 m?? [facility] Comment: This patient's estimated GFR was [...] In Lab Jovani Richardson MD CHEMISTRY ORDERABLES [facility] [place] [address] * (ABNORMAL) Phosphorus (11/06/2023 7:37 AM EDT) Phosphorus 4.7(H) 2.5 - 4.5 mg/dL [facility] Blood 11/06/2023 7:37 AM EDT 11/06/2023 7:49 AM EDT Narrative Resulting Agency Comment Spec In Lab Jovani Richardson MD CHEMISTRY ORDERABLES [facility] [place] [address] * Albumin Level (11/06/2023 7:37 AM EDT) Albumin 4.1 3.2 - 5.2 g/dL [facility] Blood 11/06/2023 7:37 AM EDT 11/06/2023 7:49 AM EDT Narrative Resulting Agency Comment Spec In Lab Jovani Richardson MD CHEMISTRY ORDERABLES Performing Organization Address City/[facility]/ZIP Co de Phone Number [facility] [place] [address] * Uric acid (11/06/2023 7:37 AM EDT) Uric Acid 7.4 3.5 - 8.5 mg/dL [facility] Blood 11/06/2023 7:37 AM EDT 11/06/2023 7:49 AM EDT Narrative Resulting Agency Comment Spec In Lab Jovani Richardson MD CHEMISTRY ORDERABLES Performing Organization Address [facility] Co de Phone Number [facility] [place] [address] * (ABNORMAL) PTH (11/06/2023 7:37 AM EDT) PTH 113(H) 15 - 65 pg/mL [facility] Blood 11/06/2023 7:37 AM EDT 11/06/2023 7:49 AM EDT Narrative Resulting Agency Comment Spec In Lab Jovani Richardson MD CHEMISTRY ORDERABLES Performing Organization Address [facility] Co de Phone Number [facility] [place] [address] documented in this encounter Visit Diagnoses Diagnosis CKD (chronic kidney disease) stage 4, GFR 15-29 ml/min Chronic kidney disease, Stage IV (severe) Primary hypertension Unspecified essential hypertension Anemia of chronic renal failure, stage 4 (severe) Acidosis, metabolic Acidosis Sharma's esophagus with dysplasia Sharma's esophagus documented in this encounter Care Teams Carbon Plant Grinder Relationship Specialty Start Date End Date Govind Mend[place] [address] PCP - General Internal Medicine 11/06/23 documented as of this encounter
--- OUTSIDE RECORDS SUMMARY | 2023-12-10 04:58 | XMS_ITS | Encounter Summary ---
[place] [address] Care Team Providers Care Dehydrogenation Converter Helper Name Role Phone Govind Mendes Primary Care Provider + Encounter Details Date Type Department Care Team (Late st Contact Info) Description 12/02/2023 Telephone [place] [address] Nehal Ferrara Social History Tobacco Use Types Packs/Day Years [...] encounter Miscellaneous Notes * Telephone Encounter - Nehal Ferrara - 12/02/2023 8:21 AM EDT Mathew Mendez [id number] Diagnosis/Indication: barretts Please review patient chart to confirm if previous Endoscopy procedure was performed within system. If yes, take note of Anesthesia type used. If previous procedure found, and with MAC/propofol Anesthesia support was used, schedule this procedure with Anesthesia and skip the Anesthesia portion of questions. If not performed within system, not performed at all, or performed with IVCS, ask Anesthesia questions. SCHEDULING QUESTIONS (ask all patient these questions) Have you ever had a/an Upper Endoscopy before? Yes: Date 3 weeks ago If yes, did you have any problems with the procedure (such as waking up during the procedure, pain or difficulties afterwards, etc.)? No What type of sedation was used: General Anesthesia (ASK ONLY FOR COLONOSCOPY PROCEDURES) Are you aware, or have you ever been told that you had a poor prep or failed prep with a previous colonoscopy? No If yes, assign the Extended MiraLAX Prep (ASK ONLY FOR COLONOSCOPY PROCEDURES) Do you have an ongoing history of constipation? (E.g., hard stools, >2 days without a bowel movement, straining or difficulty passing stool) No If yes, assign the Extended MiraLAX Prep Do you take any blood thinners or have you been diagnosed with a bleeding disorder that increases your risk of bleeding with procedures? No Do you have a Pacemaker or Defibrillator device? If yes, send pool message to Cardiology with patient information and date or procedure. No Do you have diabetes? If yes, call PCP/managing provider to discuss use of prep and any questions or concerns related to. No If yes, assign the Extended MiraLAX Prep Do you take any iron supplements or vitamins that contain iron? Yes IRON Do you have a preference regarding the gender of your provider? Yes GO ANESTHESIA QUESTIONS (YES to any question, please book with Anesthesia support) Have you ever been diagnosed with Pulmonary Hypertension and/or Congential Heart Disease? No Have you been diagnosed with A-Fib (atrial fibrillation) that is NOT being well controled with medications? No Have you ever had an allergic or adverse reaction to Fentanyl or Versed? No Have you had a problem with sedation or anesthesia? (Waking up during procedure, extreme confusion after, etc.) No Do you have a diagnosis of Obstructive Sleep Apnea that requires the use of a c- pap machine? Yes cpap Do you use an oxygen tank at home? No Do you use a rescue inhaler more than twice per day? (COPD, severe asthma) No Do you experience breathing problems when you lay flat for a period of time? No Do you regularly take prescription opioid pain medications on a daily basis? (Includes oxycodone, Percocet, Suboxone, methadone, etc.) No If yes, assign the Extended MiraLAX Prep SCHEDULING CONFIRMATIONS: Please note any and all parts of your conversation with the patient here. We offer all new patients an opportunity to have an appointment with one of our associate care providers to learn more about your upcoming procedure, ask questions and get answers. These appointmentsare offered via telehealth. Would you be interested in scheduling this appointment? (Only ask if NEW referral patient; skip this question if GI provider ordered the procedure.) No Is there any other information or concerns you would like to us to share with your care team in relation to your upcoming scheduled procedure? No You must have a responsible alliance party who will drive you to your procedure, stay on campus for the entire duration of your procedure, and drive you home from your procedure. Who will likely be your armored car guard and driver for the procedure? *Please Verify the height and weight, and adjust if height and/or weight have changed* Estimated body mass index is 25.89 kg/m?? as calculated from the following: Height as of 11/19/23: 167.6 cm (5' 6). Weight as of 11/19/23: 72.8 kg (160 lb 6.4 oz). documented in this encounter Plan of Treatment Upcoming Encounters Date Type Department Care Team (Latest Contact Info) Description 01/02/2024 7:30 AM EDT Hospital Encounter [place] [address] Lawrence Gar MD [facility] [address] [place] [address] 01/02/2024 7:30 AM EDT - 01/02/2024 8:30 AM EDT Surgery [place] [address] Lawrence Gar MD [facility] [place] [address] EGD, UPPER GI ENDOSCOPY (WRVU 2.09) 11/17/2024 4:20 PM EDT Office [place] [address] Lawrence Gar MD [facility] [address] [place] [address] Scheduled Procedures Name Priority Associated Diagnoses Date/Ti me EGD, UPPER GI ENDOSCOPY (WRVU 2.09) Sharma's esophagus with dysplasia 01/02/2024 7:30 AM EDT documented as of this encounter Visit Diagnoses Not on filedocumented in this encounter Care Teams Dehydrogenation Converter Helper Relationship Specialty Start Date End Date Govind Mendes [place] [facility] [place] [address] PCP - General Internal Medicine 11/06/23 documented as of this encounter
--- OUTSIDE RECORDS SUMMARY | 2023-12-10 04:58 | XMS_ITS | Encounter Summary ---
Author Organization [facility] Address [address] [place] [address] Care Team Providers Care Wire Puller Name Role Phone DioJovani liu Michel Primary Care Provider +1- [phone] Reason for Visit * (Routine/Next Available) - Receiving Office to Obtain Authorization Specialty Diagnoses / Procedures Referred By Devaughn bobo Referred To Contact Procedures XR OUTSIDE IMAGES CHEST Imaging, External Referral ID Status Reason Start Date Expiration Date Visits Requested Visits Authorized [id number] Receiving Office to Obtain Authorization 07/26/2021 1 1 Encounter Details Date Type Department Care Team (Latest Contact Info) Description 07/26/2021 9:27 EST - 07/26/2021 22:35 EST Hospital Encounter [facility] [place] Discharge Disposition: Home or [...] Comments XR OUTSIDE IMAGES CHEST Routine 07/26/2021 9:27 EST documented in this encounter Results * XR OUTSIDE IMAGES CHEST (07/26/2021 9:27 EST) Narrative 07/26/2021 9:27 EST This is a non-reportable exam. External Imaging IMG OTHER IMAGING OR DERABLES documented in this encounter Visit Diagnoses Not on filedocumented in this encounter Care Teams Wire Puller Relationship Specialty Start Date End Date Jovani Wharton DO [address] [place] [address] PCP - General 10/11/16 10/17/21 documented as of this encounter
--- OUTSIDE RECORDS SUMMARY | 2023-12-10 04:58 | XMS_ITS | Encounter Summary ---
Author Organization [facility] Address [address] [place] [address] Care Team Providers Care Transition Nurse Name Role Phone Jovani Wharton DO Primary Care Provider +1- [phone] Encounter Details Date Type Department Care Team (Late st Contact Info) Description 09/12/2018 Results Only [facility] [phone] Woodrow Saravia MD [address] [place] [address] Social History Tobacco Use Types Packs/Day Years [...] Date/Time Associated Diagnosis Comments SURGICAL PATHOLOGY Routine 09/12/2018 15 :47 EDT documented in this encounter Results * SURGICAL PATHOLOGY (09/12/2018 15:47 EDT) Pathology Report: SURGICAL PATHOLOGY REPORT Reports generated via electronic interface contain original data; however they are lacking the format of the original report. Caution should be taken when reading/interpretin g unformatted reports. Name: ? MATHEW LINK ? Accession #: ? [id number] ? : ? 1955 (Age: 63) ??M ? Collect Date: ? 09/12/2018 ? Location: ? [facility] ? Receive Date: ? 09/15/2018 ? Provider: WOODROW SARAVIA MD Copy to: ? Final Pathologic Diagnosis: ESOPHAGUS, GASTROESOPHAGEAL JUNCTION, BIOPSY: - Squamocolumnar mucosal tissue showing extensive intestinal metaplasia. - Negative for dysplasia. Document reviewed and electronically signed by: IRMA WARD MD Report ??Date: 09/17/2018 12:02 By the signature above, the attending physician certifies that he/she has personally conducted a gross and/or microscopic examination of the described specimens and rendered or confirmed the above diagnosis. Specimen(s) Received: GE junction Clinical History: GERD, dysphagia; clinical diagnosis code: ??R13.10 Gross Description: ? Received in formalin labelled with proper patient identification (initials G, P) and GE junction are two pink-mario tissues (0.3 x 0.2 x 0.2 cm and 0.3 x 0.2 x 0 2 cm). Entirely submitted in 1. ARMANDO Ramsey (ASCP) 09/15/2018 4:09 PM End of Report [facility] 09/12/2018 15:4 7 EDT 09/15/2018 15:47 EDT Woodrow Saravia MD PATHOLOGY ORDERABLES [facility] [address] [place] [address] documented in this encounter Visit Diagnoses Not on filedocumented in this encounter Care Teams Transition Nurse Relationship Specialty Start Date End Date Jovani Wharton DO [address] [place] [address] PCP - General 10/11/16 10/17/21 documented as of this encounter
--- OUTSIDE RECORDS SUMMARY | 2023-12-10 04:58 | XMS_ITS | Encounter Summary ---
Author Organization [facility] [place] [address] Care Team Providers Care Winchman/Crane Operator Name Role Phone Govind Mendes Primary Care Provider + Encounter Details Date Type Department Care Team (Late st Contact Info) Description 11/06/2023 Transcribe [place] [phone] Govind Mendes PA [address] [place] [address] [place] [address] Secondary hyperparathyroidism, non-renal Social History Tobacco Use Types Packs/Day Years [...] 7:30 AM EDT Hospital En[place] [phone] Lawrence Gar MD [facility] [place] [address] 01/02/2024 7:30 AM EDT - 01/02/2024 8:30 AM EDT Surgery [place] [address] Lawrence Gar MD [facility] DR [place] [address] EGD, UPPER GI ENDOSCOPY (WRVU 2.09) 11/17/2024 4:20 PM EDT Office [place] [address] Lawrence Gar MD [facility] DR [place] [address] Scheduled Orders Name Type Priority Associated Diagnoses Orde r Schedule Vitamin D, 25-Hydroxy Lab Routine Secondary hyperparathyroidism, non-renal Expected: 11/06/2023 (Approximate), Expires: 11/05/2024 Phosphorus Lab Routine Secondary hyperparathyroidism, non-renal Expected: 11/06/2023 (Approximate), Expires: 11/05/2024 PTH Lab Routine Secondary hyperparathyroidism, non-renal Expected: 11/06/2023 (Approximate), Expires: 11/05/2024 Iron and TIBC Lab Routine Secondary hyperparathyroidism, non-renal Expected: 11/06/2023 (Approximate), Expires: 11/05/2024 Ferritin Lab Routine Secondary hyperparathyroidism, non-renal Expected: 11/06/2023 (Approximate), Expires: 11/05/2024 CBC (with Diff) Lab Routine Secondary hyperparathyroidism, non-renal Expected: 11/06/2023 (Approximate), Expires: 11/05/2024 Scheduled Procedures Name Priority Associated Diagnoses Date/Ti me EGD, UPPER GI ENDOSCOPY (WRVU 2.09) Sharma's esophagus with dysplasia 01/02/2024 7:30 AM EDT documented as of this encounter Visit Diagnoses Diagnosis Secondary hyperparathyroidism, non-renal Sharma's esophagus with dysplasia Sharma's esophagus documented in this encounter Care Teams Winchman/Crane Operator Relationship Specialty Start Date End Date Govind Mendes PA [facility] [place] [address] PCP - General Internal Medicine 11/06/23 documented as of this encounter
--- OUTSIDE RECORDS SUMMARY | 2023-12-10 04:58 | XMS_ITS | Encounter Summary ---
Author Organization [facility] Address [address] [place] [address] Care Team Providers Care Third Cook Name Role Phone Jovani Whartno DO Primary Care Provider [phone] Reason for Visit * (Routine/Next Available) - Receiving Office to Obtain Authorization Specialty Diagnoses / Procedures Referred By Devaughn bobo Referred To Contact Procedures XR OUTSIDE IMAGES BODY Unknown, Provider, Referral ID Status Reason Start Date Expiration Date Visits Requested Visits Authorized [id number] Receiving Office to Obtain Authorization 07/31/2021 1 1 Encounter Details Date Type Department Care Team (Latest Contact Info) Description 07/28/2021 - 07/28/2021 23:59 EST Hospital Encounter [facility] Secondary Reads [place] Discharge Disposition: Home [...] Diagnosis Comments XR OUTSIDE IMAGES BODY Routine 07/31/2021 15:23 EST documented in this encounter Results * XR OUTSIDE IMAGES BODY (07/31/2021 15:23 EST) Narrative 07/31/2021 15:23 EST This is a non-reportable exam. Provider Unknown MD [facility] OTHER IMAGING OR DERABLES documented in this encounter Visit Diagnoses Not on filedocumented in this encounter Care Teams Third Cook Relationship Specialty Start Date End Date Jovani Wharton DO [address] [place] [address] PCP - General 10/11/16 10/17/21 documented as of this encounter
--- OUTSIDE RECORDS SUMMARY | 2023-12-10 04:59 | XMS_ITS | Encounter Summary ---
Author Organization [place] [address] Care Team Providers Care Mold Puller Name Role Phone Slade Tran MD Primary Care Provider [phone] Encounter Details Date Type Department Care Team (Late st Contact Info) Description 09/30/2023 Orders Only [place] [phone] Karol Iverson, LOYD CKD (chronic kidney disease) stage 4, GFR 15-29 ml/min Social History Tobacco Use Types Packs/Day Years [...] 7:30 AM EDT Hospital En[place] [phone] Lawrence Gar MD [facility] [place] [address] 01/02/2024 7:30 AM EDT - 01/02/2024 8:30 AM EDT [place] [address] Lawrence Gar MD [facility] [place] [address] EGD, UPPER GI ENDOSCOPY (WRVU 2.09) 11/17/2024 4:20 PM EDT Office [place] [address] Lawrence Gar MD [facility] [place] [address] Scheduled Procedures Name Priority Associated Diagnoses Date/Ti me EGD, UPPER GI ENDOSCOPY (WRVU 2.09) Sharma's esophagus with dysplasia 01/02/2024 7:30 AM EDT documented as of this encounter Results * (ABNORMAL) Protein/Creatinine Ratio, urine (11/06/2023 7:48 AM EDT) U Creatinine 69 mg/dL [facility] U Protein Ran 179(H) 0 - 12 mg/dL [facility] Prot/Cre Ratio 2.6 ratio [facility] Urine 11/06/2023 7:48 AM EDT 11/06/2023 7:58 AM EDT Narrative Resulting Agency Comment Spec In Lab Jovani Richardson MD URINE ORDERABLES [facility] [place] [address] * (ABNORMAL) PTH (11/06/2023 7:37 AM EDT) PTH 113(H) 15 - 65 pg/mL [facility] Blood 11/06/2023 7:37 AM EDT 11/06/2023 7:49 AM EDT Narrative Resulting Agency Comment Spec In Lab Jovani Richardson MD CHEMISTRY ORDERABLES [facility] [place] [address] * Uric acid (11/06/2023 7:37 AM EDT) Uric Acid 7.4 3.5 - 8.5 mg/dL [facility] Blood 11/06/2023 7:37 AM EDT 11/06/2023 7:49 AM EDT Narrative Resulting Agency Comment Spec In Lab Jovani Richardson MD CHEMISTRY ORDERABLES Performing Organization Address City/[facility]/ZIP Co de Phone Number [facility] [place] [address] * Albumin Level (11/06/2023 7:37 AM EDT) Albumin 4.1 3.2 - 5.2 g/dL [facility] Blood 11/06/2023 7:37 AM EDT 11/06/2023 7:49 AM EDT Narrative Resulting Agency Comment Spec In Lab Jovani Richardson MD CHEMISTRY ORDERABLES Performing Organization Address City/[facility]/ZIP Co de Phone Number [facility] [place] [address] * (ABNORMAL) Phosphorus (11/06/2023 7:37 AM EDT) Phosphorus 4.7(H) 2.5 - 4.5 mg/dL [facility] Blood 11/06/2023 7:37 AM EDT 11/06/2023 7:49 AM EDT Narrative Resulting Agency Comment Spec In Lab Jovani Richardson MD CHEMISTRY ORDERABLES [facility] [place] [address] * (ABNORMAL) Basic Metabolic Panel (non-fasting) (11/06/2023 7:37 AM EDT) Glucose Lvl 93 65 - 199 mg/dL [facility] Comment:Diabetes: >=200 mg/d L plus symptoms BUN 56(H) 10 - 20 mg/dL [facility] Creatinine 3.08(H) 0.80 - 1.50 mg/dL [facility] Sodium 142 135 - 145 mmol/L [facility] Potassium 5.2(H) 3.5 - 5.0 mmol/L [facility] Comment: Please note: ??Patients with WBC >100,000 may have falsely elevated Potassium levels. ??For accurate Potassium quantification in these patients send serum separator tube (gold top) for subsequent determinations. ??Contact the Clinical Chemistry Laboratory if there are any questions. Chloride 108(H) 98 - 107 mmol/L [facility] CO2 21(L) 22 - 31 mmol/L [facility] Anion Gap 13 5 - 15 mmol/L [facility] Calcium 9.0 8.5 - 10.5 mg/dL [facility] Estimated GFR 21(L) >=60 mL/min/1. 73 m?? [facility] Comment: This patient's estimated [...] In Lab Jovani Richardson MD CHEMISTRY ORDERABLES [facility] [place] [address] documented in this encounter Visit Diagnoses Diagnosis CKD (chronic kidney disease) stage 4, GFR 15-29 ml/min Chronic kidney disease, Stage IV (severe) Sharma's esophagus with dysplasia Sharma's esophagus documented in this encounter Care Teams Mold Puller Relationship Specialty Start Date End Date Slade Tran MD [address] [place] [address] PCP - General Family Medicine 06/19/22 11/05/23 documented as of this encounter
--- OUTSIDE RECORDS SUMMARY | 2023-12-10 04:59 | XMS_ITS | Encounter Summary ---
[place] [address] Care Team Providers Care Inside Sales Specialist Name Role Phone Slade Tran MD Primary Care Provider [phone] Encounter Details Date Type Department Care Team (Late st Contact Info) Description 07/10/2022 [place]phone [place] [phone] Patsy Quintero Social History Tobacco Use Types Packs/Day Years [...] encounter Miscellaneous Notes * Telephone Encounter - Patsy Quintero - 07/10/2022 12:38 PM EST Inbound/Outbound: OUTBOUND Spoke to Patient/Left Message: LVM Notes: LVM for patient to return call to Gastro. Patient needs to reschedule appointment with Dr. Cong aguila in [place] from nursing. Return calls can be handled by: [facility] documented in this encounter Plan of Treatment Upcoming Encounters Date Type Department Care Team (Latest Contact Info) Description 01/02/2024 7:30 AM EDT Hospital En[place] [address] Lawrence Gar MD [facility] [place] [address] 01/02/2024 7:30 AM EDT - 01/02/2024 8:30 AM EDT [place] [address] Lawrence Gar MD [facility] [place] [address] EGD, UPPER GI ENDOSCOPY (WRVU 2.09) 11/17/2024 4:20 PM EDT Office [place] [address] Lawrence Gar MD [facility] [place] [address] Scheduled Procedures Name Priority Associated Diagnoses Date/Ti me EGD, UPPER GI ENDOSCOPY (WRVU 2.09) Sharma's esophagus with dysplasia 01/02/2024 7:30 AM EDT documented as of this encounter Visit Diagnoses Not on filedocumented in this encounter Care Teams Inside Sales Specialist Relationship Specialty Start Date End Date Slade Tran MD [facility] [address] [address] PCP - General Family Medicine 06/19/22 11/05/23 documented as of this encounter
--- OUTSIDE RECORDS SUMMARY | 2023-12-10 04:59 | XMS_ITS | Encounter Summary ---
[place] [address] Care Team Providers Care Wellness Instructor Name Role Phone Slade Tran MD Primary Care Provider [phone] Encounter Details Date Type Department Care Team (Late st Contact Info) Description 08/30/2023 [place] [phone] Nena Edwards Social History Tobacco Use Types Packs/Day Years [...] encounter Miscellaneous Notes * Telephone Encounter - Nena Edwards - 08/30/2023 10:15 AM EDT Mathew Mendez [id number] Diagnosis/Indication: 3 year Please review patient chart to confirm if [...] Have you ever had a/an Upper Endoscopy & Colonoscopy before? Yes: Date colo 5/27/21 , egd [facility] over 5 years If yes, did you have any problems [...] supplements or vitamins that contain iron? Yes Do you have a preference regarding the gender of your provider? Yes Cong ANESTHESIA QUESTIONS (YES to any question, please [...] use of a c- pap machine? Yes Do you use an oxygen tank at [...] procedure? No You must have a responsible democrat who will drive you to your procedure, stay on campus for the entire duration of your procedure, and drive you home from your procedure. Who will likely be your port cdl a driver for the procedure? *Please Verify the height and weight, and adjust if height and/or weight have changed* Estimated body mass index is 26.63 kg/m?? as calculated from the following: Height as of 04/09/23: 167.6 cm (5' 6). Weight as of 04/09/23: 74.8 kg (165 lb). Age:68 y.o. documented in this encounter Plan of Treatment Upcoming Encounters Date Type Department Care Team (Latest Contact Info) Description 01/02/2024 7:30 AM EDT Hospital En[place] [address] Lawrence Gar MD [facility] [place] [address] 01/02/2024 7:30 AM EDT - 01/02/2024 8:30 AM EDT [place] [address] Lawrence Gar MD [facility] [place] [address] EGD, UPPER GI ENDOSCOPY (WRVU 2.09) 11/17/2024 4:20 PM EDT [place] [address] Lawrence Walters MD [facility] [place] [address] Scheduled Procedures Name Priority Associated Diagnoses Date/Ti me EGD, UPPER GI ENDOSCOPY (WRVU 2.09) Sharma's esophagus with dysplasia 01/02/2024 7:30 AM EDT documented as of this encounter Visit Diagnoses Not on filedocumented in this encounter Care Teams Wellness Instructor Relationship Specialty Start Date End Date Slade Tran MD [address] [place] [address] [place] [address] PCP - General Family Medicine 06/19/22 11/05/23 documented as of this encounter
--- OUTSIDE RECORDS SUMMARY | 2023-12-10 04:59 | XMS_ITS | Encounter Summary ---
Author Organization [facility] [place] [address] Care Team Providers Care Manager Utility Name Role Phone Slade Tran MD Primary Care Provider [phone] Encounter Details Date Type Department Care Team (Late st Contact Info) Description 09/25/2023 External Results Nephrology [place] [phone] Karol Iverson RN Social History Tobacco Use Types Packs/Day [...] 7:30 AM EDT Hospital Encounter [place] [address] Lawrence Gar MD [facility] [place] [address] 01/02/2024 7:30 AM EDT - 01/02/2024 8:30 AM EDT Surgery [place] [phone] Lawrence Gar MD [facility] [place] [address] EGD, UPPER GI ENDOSCOPY (WRVU 2.09) 11/17/2024 4:20 PM EDT Office Visit [place] [address] Lawrence Gar MD [facility] [place] [address] Scheduled Procedures Name Priority Associated Diagnoses Date/Ti me EGD, UPPER GI ENDOSCOPY (WRVU 2.09) Sharma's esophagus with dysplasia 01/02/2024 7:30 AM EDT documented as of this encounter Procedures Procedure Name Priority Date/Time Associated Diagnosis Comments PROTEIN ELECTROPHORESIS, URINE, RANDOM Routine 09/23/2023 PROTEIN ELECTROPHORESIS, SERUM Routine 09/23/2023 BASIC METABOLIC PANEL (NON-FASTING) Routine 09/23/2023 documented in this encounter Results * Protein Electrophoresis, urine, random (09/23/2023) U [...] Blood 09/23/2023 Historical Provider CHEMISTRY ORDERAB LES * Basic Metabolic Panel (non-fasting) (09/23/2023) Glucose Lvl 166 BUN 47 Creatinine 3.5 Estimated GFR 18.12 Sodium 141 Potassium 4.8 Chloride 106 CO2 23 Calcium 7.9 Blood 09/23/2023 Historical Provider CHEMISTRY ORDERAB LES documented in this encounter Visit Diagnoses Not on filedocumented in this encounter Care Teams Manager Utility Relationship Specialty Start Date End Date Slade Tran MD [address] [place] [address] PCP - General Family Medicine 06/19/22 11/05/23 documented as of this encounter
--- OUTSIDE RECORDS SUMMARY | 2023-12-10 04:59 | XMS_ITS | Encounter Summary ---
Author Organization [facility] Address [facility] Elizabeth pugh [place] [id number] Care Team Providers Care Inspection Engineer Name Role Phone Slade Tran MD Primary Care Provider [phone] Encounter Details Date Type Department Care Team (Latest Contact Info) Description 08/30/2023 11:30 AM EDT Office Visit Ne[place] [address] Jovani Richardson MD [facility] [place] [address] CKD (chronic kidney disease) stage 4, GFR [...] Sign Reading Time Taken Comments Blood Pressure 133/81 08/30/2023 11:20 AM EDT Pulse 62 08/30/2023 11:20 AM EDT Temperature - - Respiratory Rate - - Oxygen Saturation - - Inhaled Oxygen Concentration - - Weight 74.8 kg (165 lb) 08/30/2023 11:20 AM EDT Height 167.6 cm (5' 6) 08/30/2023 11:20 AM EDT Body Mass Index 26.63 08/30/2023 11:20 AM EDT documented in this encounter Progress Notes * Jovani Richardson MD - 08/30/2023 11:30 AM EDT Nephrology/Hypertension Clinic Follow-up Note [id number] ID: 68 y.o.year-old male for follow up of CKD. 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 omeprazole (PriLOSEC) 40 mg Capsule, Delayed Release(E.C.) Take 40 mg by mouth daily. triamcinolone (KENALOG) 0.1 % Ointment Apply to [...] days total per month) 45 g 3 lisinopriL (Prinivil;Zestril) 5 mg Tablet Take 5 mg by mouth daily. [DISCONTINUED] amoxicillin (Amoxil) 500 mg Capsule TAKE FOUR CAPSULES BY MOUTH 1 HOUR PRIOR TO VISIT No facility-administered encounter medications on file as of 08/30/2023. Allergies Allergen Reactions Morphine Hives S: Has chronic digestive issues, stable. Alternating constipation followed by large bowel movements, after which he feels better. Had a severe episode of abdominal pain in [place] in June that landed himin the ED. No explanation was found. O: Vitals: 08/30/23 1120 BP: 133/81 Pulse: 62 Weight: 74.8 kg (165 lb) Height: 167.6 cm (5' 6) General: NAD CV: reg Resp: CTA Abd: S/NT Ext: tr-1+ edema Labs: Recent Results (from the past 72 hour(s)) Vitamin D, 25-Hydroxy Result Value Ref Range 25-OH Vit D Total 21 21 - 100 ng/mL 25-OH Vit D Interp Insufficient Folate, serum Result Value Ref Range Folate Lvl >20.0 4.8 - 24.2 ng/mL Vitamin B12 Result Value Ref Range Vitamin B-12 608 232 - 1,245 pg/mL Ferritin Result Value Ref Range Ferritin 152 31 - 409 ng/mL PTH Result Value Ref Range PTH 145 (H) 15 - 65 pg/mL Uric acid Result Value Ref Range Uric Acid 8.2 3.5 - 8.5 mg/dL Albumin Level Result Value Ref Range Albumin 4.4 3.2 - 5.2 g/dL Phosphorus Result Value Ref Range Phosphorus 3.8 2.5 - 4.5 mg/dL Basic Metabolic Panel (non-fasting) Result Value Ref Range Glucose Lvl 61 (L) 65 - 199 mg/dL BUN 49 (H) 10 - 20 mg/dL Creatinine 3.21 (H) 0.80 - 1.50 mg/dL Sodium 140 135 - 145 mmol/L Potassium 5.0 3.5 - 5.0 mmol/L Chloride 109 (H) 98 - 107 mmol/L CO2 17 (L) 22 - 31 mmol/L Anion Gap 14 5 - 15 mmol/L Calcium 8.7 8.5 - 10.5 mg/dL Estimated GFR 20 (L) >=60 mL/min/1.73 m?? Hemogram Result Value Ref Range WBC 6.5 4.0 - 9.5 x10(3)/mcL RBC 3.29 (L) 4.58 - 5.54 x10(6)/mcL Hemoglobin 10.2 (L) 13.7 - 16.5 g/dL Hematocrit 31.3 (L) 40.5 - 48.5 % MCV 95.1 (H) 82.9 - 93.1 fL MCH 31.0 27.5 - 32.1 pg MCHC 32.6 32.0 - 35.7 g/dL Platelets 170 145 - 357 x10(3)/mcL RDWSD 47.0 (H) 36.0 - 45.0 fL RDWCV 13.3 11.4 - 13.8 % MPV 10.3 7.6 - 12.9 fL nRBC % Auto 0.0 % nRBC Abs Auto 0.000 0.000 - 0.000 x10(3)/mcL Differential, Automated Result Value Ref Range Neutrophils % 66.9 % Neutr Abs (ANC) 4.38 1.70 - 6.10 x10(3)/mcL Lymphocytes % 13.8 % Lymphocytes Abs 0.9 0.9 - 3.2 x10(3)/mcL Monocytes % 12.2 % Monocyte Abs 0.8 0.3 - 0.9 x10(3)/mcL Eosinophils % 5.7 % Eosinophils Abs 0.4 0.0 - 0.4 x10(3)/mcL Basophils % 0.9 % Basophils Abs 0.1 0.0 - 0.1 x10(3)/mcL Immature Gran % 0.50 % Raya Gran Abs 0.03 0.00 - 0.04 x10(3)/mcL A/P: Renal: stage 4 CKD likely secondary to hypertension. Cr up today, which may be volume related with his SGLT-2i therapy or could represent an injury related to his unexplained abdominal pain in June. He is hemodynamically stable and appears well compensated from a volume standpoint today. BP is slightly above goal. - Target BP < 130/80 - Increase lisinopril to 10mg daily ([facility]) - Standing BMP to [facility]; will check labs in 1-2 weeks. If Cr continues to climb, will hold PPI and check SPEP/UPEP/FLC. May need to consider renal biopsy if no explanation is found. - F/u 2 months CC: Slade Tran MD @[email or web address]@ documented in this encounter Plan of Treatment Upcoming Encounters Date Type Department Care Team (Latest Contact Info) Description 01/02/2024 7:30 AM EDT Hospital Encounter [place] [address] Lawrence Gar MD [facility] DR [place] [address] 01/02/2024 7:30 AM EDT - 01/02/2024 8:30 AM EDT Surgery [place] [address] Lawrence Gar MD [facility] DR [place] [address] EGD, UPPER GI ENDOSCOPY (WRVU 2.09) 11/17/2024 4:20 PM EDT Office [place] [phone] Lawrence Gar MD [facility] DR [place] [address] Scheduled Orders Name Type Priority Associated Diagnoses Orde r Schedule Basic Metabolic Panel (non-fasting) Lab Routine CKD (chronic kidney disease) stage 4, GFR 15-29 ml/min Primary hypertension Once a week for 52 Occurrences starting 08/30/2023 until 08/29/2024 Basic Metabolic Panel (non-fasting) Lab Routine CKD (chronic kidney disease) stage 4, GFR 15-29 ml/min Primary hypertension Anemia of chronic renal failure, stage 4 (severe) Acidosis, metabolic Expected: 10/30/2023, Expires: 08/29/2024 CBC (with Diff) Lab Routine CKD (chronic kidney disease) stage 4, GFR 15-29 ml/min Primary hypertension Anemia of chronic renal failure, stage 4 (severe) Acidosis, metabolic Expected: 10/30/2023, Expires: 08/29/2024 Albumin Level Lab Routine CKD (chronic kidney disease) stage 4, GFR 15-29 ml/min Primary hypertension Anemia of chronic renal failure, stage 4 (severe) Acidosis, metabolic Expected: 10/30/2023, Expires: 08/29/2024 Phosphorus Lab Routine CKD (chronic kidney disease) stage 4, GFR 15-29 ml/min Primary hypertension Anemia of chronic renal failure, stage 4 (severe) Acidosis, metabolic Expected: 10/30/2023, Expires: 08/29/2024 Protein/Creatinine Ratio, urine Lab Routine CKD (chronic kidney disease) stage 4, GFR 15-29 ml/min Primary hypertension Anemia of chronic renal failure, stage 4 (severe) Acidosis, metabolic Expected: 10/30/2023, Expires: 08/29/2024 Scheduled Procedures Name Priority Associated Diagnoses Date/Ti me EGD, UPPER GI ENDOSCOPY (WRVU 2.09) Sharma's esophagus with dysplasia 01/02/2024 7:30 AM EDT documented as of this encounter Results * (ABNORMAL) Vitamin D, 25-Hydroxy (11/06/2023 7:37 AM EDT) 25-OH Vit D Total 20(L) 21 - 100 ng/mL [facility] 25-OH Vit D Interp Deficient [facility] Blood 11/06/2023 7:37 AM EDT 11/06/2023 7:49 AM EDT Narrative Resulting Agency Comment Spec In Lab Jovani Richardson MD CHEMISTRY ORDERABLES Performing Organization Address City/[facility]/ZIP Co de Phone Number [facility] [place] [address] * Iron and TIBC (11/06/2023 7:37 AM EDT) Iron 80 45 - 160 mcg/dL [facility] TIBC 266 250 - 450 mcg/dL [facility] Iron Saturation 30 20 - 50 % [facility] Blood 11/06/2023 7:37 AM EDT 11/06/2023 7:49 AM EDT Narrative Resulting Agency Comment Spec In Lab Jovani Richardson MD CHEMISTRY ORDERABLES Performing Organization Address [facility] Co de Phone Number [facility] [place] [address] * Ferritin (11/06/2023 7:37 AM EDT) Ferritin 97 31 - 409 ng/mL [facility] Comment: Please note that as of 05/01/2023, the reference intervals for Ferritin have been updated. Blood 11/06/2023 7:37 AM EDT 11/06/2023 7:49 AM EDT Narrative Resulting Agency Comment Spec In Lab Jovani Richardson MD CHEMISTRY ORDERABLES Performing Organization Address City/[facility]/ZIP Co de Phone Number [facility] [place] [address] * (ABNORMAL) PTH (11/06/2023 7:37 AM EDT) PTH 113(H) 15 - 65 pg/mL [facility] Blood 11/06/2023 7:37 AM EDT 11/06/2023 7:49 AM EDT Narrative Resulting Agency Comment Spec In Lab Jovani Richardson MD CHEMISTRY ORDERABLES [facility] [place] [address] documented in this encounter Visit Diagnoses Diagnosis CKD (chronic kidney disease) stage 4, GFR 15-29 ml/min- Primary Chronic kidney disease, Stage IV (severe) Primary hypertension Unspecified essential hypertension Anemia of chronic renal failure, stage 4 (severe) Acidosis, metabolic Acidosis Sharma's esophagus with dysplasia Sharma's esophagus documented in this encounter Care Teams Inspection Engineer Relationship Specialty Start Date End Date Slade Tran MD [facility] [place] [address] PCP - General Family Medicine 06/19/22 11/05/23 documented as of this encounter
--- OUTSIDE RECORDS SUMMARY | 2023-12-10 04:59 | XMS_ITS | Encounter Summary ---
Author Organization [facility] [place] [address] Care Team Providers Care Currency Examiner Name Role Phone Jovani Wharton DO Primary Care Provider Encounter Details Date Type Department Care Team (Late st Contact Info) Description 07/26/2021 8:55 AM EST Ancillary [place] [id number] Jovani Wharton DO [address] [place] [address] Social History Tobacco Use Types Packs/Day Years [...] 7:30 AM EDT Hospital En[place] [phone] Lawrence Gar MD [facility] DR [place]STRO[place] [address] 01/02/2024 7:30 AM EDT - 01/02/2024 8:30 AM EDT [place] [address] Lawrence Gar MD [facility] DR [place] [address] EGD, UPPER GI ENDOSCOPY (WRVU 2.09) 11/17/2024 4:20 PM EDT Office [place] [address] Lawrence Gar MD [facility] DR [place] [address] Scheduled Procedures Name Priority Associated Diagnoses Date/Ti me EGD, UPPER GI ENDOSCOPY (WRVU 2.09) Sharma's esophagus with dysplasia 01/02/2024 7:30 AM EDT documented as of this encounter Procedures Procedure Name Priority Date/Time Associated Diagnosis Comments FILM LIBRARY STORAGE ONLY DX CHEST Routine 07/26/2021 8:53 AM EST documented in this encounter Results * Film Library- Storage Only DX Chest (07/26/2021 8:53 AM EST) Narrative [facility] - 07/26/2021 8:53 AM EST This exam is auto-finalizing. It's purpose is for storage only. Jovani Wharton DO IMG FILM LIBRARY ORD ERABLES [place], [place] documented in this encounter Visit Diagnoses Not on filedocumented in this encounter Care Teams Currency Examiner Relationship Specialty Start Date End Date Jovani Wharton DO [address] [place] [address] PCP - General Family Medicine 10/18/16 06/18/22 documented as of this encounter
--- OUTSIDE RECORDS SUMMARY | 2023-12-10 04:59 | XMS_ITS | Encounter Summary ---
Author Organization [facility] Address [facility] [place] [address] Care Team Providers Care Card Services Specialist Name Role Phone Slade Tran MD Primary Care Provider Encounter Details Date Type Department Care Team (Latest Contact Info) Description 01/21/2023 2:00 PM EDT Office Visit Ne[place] [address] Jovani Richardson MD [facility] [place] [address] CKD (chronic kidney disease) stage 4, GFR 15-29 ml/min; Primary hypertension; Hyperparathyroidism due to renal insufficiency; Anemia of chronic renal failure, stage 4 (severe); Hyperkalemia; Acidosis, metabolic Social History Tobacco Use Types [...] Sign Reading Time Taken Comments Blood Pressure 130/65 01/21/2023 1:50 PM EDT Pulse 65 01/21/2023 1:50 PM EDT Temperature - - Respiratory Rate 18 01/21/2023 1:50 PM EDT Oxygen Saturation 100% 01/21/2023 1:50 PM EDT Inhaled Oxygen Concentration - - Weight 72.4 kg (159 lb 9.6 oz) 01/21/2023 1:50 P M EDT Height - - Body Mass Index 25.76 09/25/2022 4:21 PM EDT documented in this encounter Progress Notes * Jovani Richardson MD - 01/21/2023 2:00 PM EDT Nephrology/Hypertension Clinic Follow-up Note [id number] ID: 67 y.o.year-old male for follow up of CKD. [...] loss R63.4 Outpatient Encounter Medications as of 01/21/2023 Medication Sig Dispense Refill pyridoxine, vitamin B6, (Vitamin B6) 100 mg tablet Take 100 mg by mouth daily. ferrous gluconate (Ferate) 324 mg (37.5 mg iron) tablet Take 324 mg by mouth every other day. metoprolol succinate XL (Toprol-XL) 50 mg ER 24 hr tablet Take 50 mg by mouth daily. calciTRIoL (Rocaltrol) 0.25 mcg capsule Take 0.25 mcg by mouth daily. 3 TIMES WEEKLY amLODIPine (Norvasc) 5 mg tablet Take 1 [...] Tablet Take 5 mg by mouth daily. lrjcvq-dbuitgpm-fvgzndh DR (Creon 6) 6,000-19,000 -30,[address] capsule Take by mouth 3 times daily. HYDROmorphone (Dilaudid) 2 mg tablet Take 2 mg by mouth Every 8 hours as needed. amoxicillin (Amoxil) 500 mg Capsule TAKE FOUR CAPSULES BY MOUTH 1 HOUR PRIOR TO VISIT cyanocobalamin, Vitamin B-12, (VITAMIN B-12) 100 mcg Tablet Take 100 mcg by mouth daily. allopurinol (ZYLOPRIM) 100 mg Tablet Take 100 mg by mouth daily. No facility-administered encounter medications on file as of 01/21/2023. Allergies Allergen Reactions Morphine Hives S: Feeling better since last visit. Had surgery for an incarcerated hernia and feels he is recovering well from that with greater energy. Dr. Tran has recommended Jiardiance, and he would like my opinion on whether that is appropriate in light of his kidney disease. He was recommended to take 1/2 tsp bicarbonate daily but has a hard time remembering this. He thinks it would be easier with a pill totake. O: Vitals: 01/21/23 1350 BP: 130/65 BP Location (NBP): Left arm Patient Position: Sitting BP Cuff Sizes: Adult (25-34 cm) Pulse: 65 Resp: 18 SpO2: 100% Weight: 72.4 kg (159 lb 9.6 oz) General: NAD CV: NAD Resp: CTA Ext: no edema Labs: Recent Results (from the past 72 hour(s)) Phosphorus Result Value Ref Range Phosphorus 3.5 2.5 - 4.5 mg/dL Albumin Level Result Value Ref Range Albumin 4.3 3.2 - 5.2 g/dL Basic Metabolic Panel (non-fasting) Result Value Ref Range Glucose Lvl 93 65 - 199 mg/dL BUN 57 (H) 10 - 20 mg/dL Creatinine 2.71 (H) 0.80 - 1.50 mg/dL Sodium 140 135 - 145 mmol/L Potassium 5.6 (H) 3.5 - 5.0 mmol/L Chloride 112 (H) 98 - 107 mmol/L CO2 15 (L) 22 - 31 mmol/L Anion Gap 13 5 - 15 mmol/L Calcium 8.4 (L) 8.5 - 10.5 mg/dL Estimated GFR 25 (L) >=60 mL/min/1.73 m?? Hemogram Result Value Ref Range WBC 5.6 4.0 - 9.5 x10(3)/mcL RBC 3.09 (L) 4.58 - 5.54 x10(6)/mcL Hemoglobin 9.4 (L) 13.7 - 16.5 g/dL Hematocrit 29.0 (L) 40.5 - 48.5 % MCV 93.9 (H) 82.9 - 93.1 fL MCH 30.4 27.5 - 32.1 pg MCHC 32.4 32.0 - 35.7 g/dL Platelets 205 145 - 357 x10(3)/mcL RDWSD 50.4 (H) 36.0 - 45.0 fL RDWCV 14.6 (H) 11.4 - 13.8 % MPV 10.7 7.6 - 12.9 fL nRBC % Auto 0.0 % nRBC Abs Auto 0.000 0.000 - 0.000 x10(3)/mcL Differential, Automated Result Value Ref Range Neutrophils % 65.6 % Neutr Abs (ANC) 3.66 1.70 - 6.10 x10(3)/mcL Lymphocytes % 16.1 % Lymphocytes Abs 0.9 0.9 - 3.2 x10(3)/mcL Monocytes % 10.8 % Monocyte Abs 0.6 0.3 - 0.9 x10(3)/mcL Eosinophils % 6.6 % Eosinophils Abs 0.4 0.0 - 0.4 x10(3)/mcL Basophils % 0.7 % Basophils Abs 0.0 0.0 - 0.1 x10(3)/mcL Immature Gran % 0.20 % Raya Gran Abs 0.01 0.00 - 0.04 x10(3)/mcL A/P: Renal: stage 4 CKD secondary to hypertension. Cr stable over the past 3 years but he has anemia andhyperparathyroidism. Cr has worsened compared to 2018. - start NaHCO3 1300mg BID - agree with adding Jiardiance in light of his continued proteinuria. Lisinopril dose is limited byhyperkalemia. He will discuss this medication addition with Dr. Tran. - low K diet counseling given - avoid NSAIDS - f/u 3 months in CKD clinic 40 minutes were spent on date of visit, including non-face to face time. CC: Slade Tran MD @[email or web address]@ documented in this encounter Plan of Treatment Upcoming Encounters Date Type Department Care Team (Latest Contact Info) Description 01/02/2024 7:30 AM EDT Hospital En[place] [address] Lawrence Gar MD [facility] [place] [address] 01/02/2024 7:30 AM EDT - 01/02/2024 8:30 AM EDT [place] [address] Lawrence Gar MD [facility] [place] [address] EGD, UPPER GI ENDOSCOPY (WRVU 2.09) 11/17/2024 4:20 PM EDT Office [place] [address] Lawrence Gar MD [facility] [place] [address] Scheduled Procedures Name Priority Associated Diagnoses Date/Ti me EGD, UPPER GI ENDOSCOPY (WRVU 2.09) Sharma's esophagus with dysplasia 01/02/2024 7:30 AM EDT documented as of this encounter Visit Diagnoses Diagnosis CKD (chronic kidney disease) stage 4, GFR 15-29 ml/min Chronic kidney disease, Stage IV (severe) Primary hypertension Unspecified essential hypertension Hyperparathyroidism due to renal insufficiency Secondary hyperparathyroidism (of renal origin) Anemia of chronic renal failure, stage 4 (severe) Hyperkalemia Hyperpotassemia Acidosis, metabolic Acidosis Sharma's esophagus with dysplasia Sharma's esophagus documented in this encounter Care Teams Card Services Specialist Relationship Specialty Start Date End Date Slade Tran MD [address] [place] [address] [place] [address] PCP - General Family Medicine 06/19/22 11/05/23 documented as of this encounter
--- OUTSIDE RECORDS SUMMARY | 2023-12-10 04:59 | XMS_ITS | Encounter Summary ---
Author Organization [facility] Address [facility] [place] [address] Care Team Providers Care Tugboat Pilot Name Role Phone Slade Tran MD Primary Care Provider Reason for Referral * Consultation (Routine) - Closed Specialty Diagnoses / Procedures Referred By Devaughn bobo Referred To Contact Nephrology Diagnoses Chronic renal disease, stage IV Slade Tran MD [address] [place] [address] Jovani Richardson MD [facility] [place] [address] Referral ID Status Reason Start Date Expiration Date V isits Requested Visits Authorized [id number] Closed Consult, Test & Treat PCP Updated and/or Approved 11/06/2022 11/06/2023 6 6 Encounter Details Date Type Department Care Team (Latest Contact Info) Description 11/06/2022 Transcribe Orders eDH Incoming Referrals [phone] Slade Tran MD [address] [place] [address] Chronic renal disease, stage IV Social History Tobacco Use Types Packs/Day Years [...] 7:30 AM EDT Hospital Encounter [place] [address] Lawrence Gar MD [facility] [place] [address] 01/02/2024 7:30 AM EDT - 01/02/2024 8:30 AM EDT Surgery [place] [address] Lawrence Gar MD [facility] [place] [address] EGD, UPPER GI ENDOSCOPY (WRVU 2.09) 11/17/2024 4:20 PM EDT Office [place] [address] Lawrence Gar MD [facility] [place] [address] Scheduled Procedures Name Priority Associated Diagnoses Date/Ti ar EGD, UPPER GI ENDOSCOPY (WRVU 2.09) Sharma's esophagus with dysplasia 01/02/2024 7:30 AM EDT Scheduled Referrals Name Type Priority Associated Diagnoses Order Schedule Referral to Nephrology Outpatient Referral Routine Chronic renal disease, stage IV Ordered: 11/06/2022 documented as of this encounter Visit Diagnoses Diagnosis Chronic renal disease, stage IV Chronic kidney disease, Stage IV (severe) Sharma's esophagus with dysplasia Sharma's esophagus documented in this encounter Care Teams Tugboat Pilot Relationship Specialty Start Date End Date Slade Tran MD [facility] [place] [id number] PCP - General Family Medicine 06/19/22 11/05/23 documented as of this encounter
--- OUTSIDE RECORDS SUMMARY | 2023-12-10 04:59 | XMS_ITS | Encounter Summary ---
Author Organization [facility] [place] [address] Care Team Providers Care Beverage Host Name Role Phone Slade Tran MD Primary Care Provider Encounter Details Date Type Department Care Team (Latest Contact Info) Description 09/25/2022 Travel Social History Tobacco Use Types Packs/Day [...] 7:30 AM EDT Hospital Encounter [place] [address] Lawrence Gar MD [facility] DR [place] [address] 01/02/2024 7:30 AM EDT - 01/02/2024 8:30 AM EDT Surgery [place] [address] Lawrence Gar MD [facility] DR [place] [address] EGD, UPPER GI ENDOSCOPY (WRVU 2.09) 11/17/2024 4:20 PM EDT Office [place] [address] Lawrence Gar MD [facility] [place] [address] Scheduled Procedures Name Priority Associated Diagnoses Date/Ti me EGD, UPPER GI ENDOSCOPY (WRVU 2.09) Sharma's esophagus with dysplasia 01/02/2024 7:30 AM EDT documented as of this encounter Visit Diagnoses Not on filedocumented in this encounter Care Teams Beverage Host Relationship Specialty Start Date End Date Slade Tran MD [address] [place] [address] PCP - General Family Medicine 06/19/22 11/05/23 documented as of this encounter
--- OUTSIDE RECORDS SUMMARY | 2023-12-10 04:59 | XMS_ITS | Encounter Summary ---
Author Organization [facility] [place] [address] Care Team Providers Care Polytechnic Registrar Name Role Phone Slade Tran MD Primary Care Provider [phone] Encounter Details Date Type Department Care Team (Latest Contact Info) Description 04/09/2023 Travel Social History Tobacco Use Types Packs/Day [...] 7:30 AM EDT Hospital En[place] [address] Lawrence Gar MD [facility] DR [place]STROENTER[place] [address] 01/02/2024 7:30 AM EDT - 01/02/2024 8:30 AM EDT [place] [address] Lawrence Gar MD [facility] DR GASTROENTER[place] [address] EGD, UPPER GI ENDOSCOPY (WRVU 2.09) 11/17/2024 4:20 PM EDT Office [place] [address] Lawrence Gar MD [facility] [place] [address] Scheduled Procedures Name Priority Associated Diagnoses Date/Ti me EGD, UPPER GI ENDOSCOPY (WRVU 2.09) Sharma's esophagus with dysplasia 01/02/2024 7:30 AM EDT documented as of this encounter Visit Diagnoses Not on filedocumented in this encounter Care Teams Polytechnic Registrar Relationship Specialty Start Date End Date Slade Tran MD [address] [place] [address] PCP - General Family Medicine 06/19/22 11/05/23 documented as of this encounter
--- OUTSIDE RECORDS SUMMARY | 2023-12-10 04:59 | XMS_ITS | Encounter Summary ---
Author Organization [facility] [place] [address] Care Team Providers Care Can Sealer Name Role Phone Slade Tran MD Primary Care Provider [phone] Encounter Details Date Type Department Care Team (Latest Contact Info) Description 08/11/2022 Travel Social History Tobacco Use Types Packs/Day [...] 7:30 AM EDT Hospital Encounter [place] [address] Lawrence Gar MD [facility] [place] [address] 01/02/2024 7:30 AM EDT - 01/02/2024 8:30 AM EDT Surgery [place] [address] Lawrence Gar MD [facility] [place] [address] EGD, UPPER GI ENDOSCOPY (WRVU 2.09) 11/17/2024 4:20 PM EDT Office Visit [place] [address] Lawrence Gar MD [facility] [place] [address] Scheduled Procedures Name Priority Associated Diagnoses Date/Ti me EGD, UPPER GI ENDOSCOPY (WRVU 2.09) Sharma's esophagus with dysplasia 01/02/2024 7:30 AM EDT documented as of this encounter Visit Diagnoses Not on filedocumented in this encounter Care Teams Can Sealer Relationship Specialty Start Date End Date Slade Tran MD [address] [place] [place] [address] PCP - General Family Medicine 06/19/22 11/05/23 documented as of this encounter
--- OUTSIDE RECORDS SUMMARY | 2023-12-10 04:59 | XMS_ITS | Encounter Summary ---
Author Organization [facility] Address [facility] [place] [address] Care Team Providers Care Account Supervisor Name Role Phone Slade Tran MD Primary Care Provider [phone] Encounter Details Date Type Department Care Team (Late st Contact Info) Description 09/25/2022 4:20 PM EDT Office Visit [place] [address] Lawrence Gar MD [facility] [place] [address] Alcohol-induced chronic pancreatitis Social History Tobacco Use Types Packs/Day Years [...] Sign Reading Time Taken Comments Blood Pressure 119/74 09/25/2022 4:21 PM EDT Pulse 70 09/25/2022 4:21 PM EDT Temperature - - Respiratory Rate - - Oxygen Saturation 96% 09/25/2022 4:2 1 PM EDT Inhaled Oxygen Concentration - - Weight 78.2 kg (172 lb 8 oz) 09/25/2022 4:21 PM EDT with boots on Height 167.6 cm (5' 6) 09/25/2022 4:21 PM EDT Body Mass Index 27.84 09/25/2022 4:21 PM EDT documented in this encounter Progress Notes * Lawrence Gar MD - 09/25/2022 4:20 PM EDT GI Problem List: #Acute on [...] biliary tree. #GERD and Sharma's esophagus-last EGD 10/14 # Colon polyps-last colonoscopy 10/14 #Diverticulitis-s/p partial colectomy HPI Comments: Returns for f/up. Since his last visit he mentioned that he developed acute abdominalpain last spring and was hospitalized with what sounds like a gastric volvulus or incarcerated paraesophageal hernia for which she underwent emergency surgery in [facility] but was then transferred to [facility] because of prolonged postoperative issues regarding gastric emptying. His symptomseventually improved after what sounds like a second operation was performed at [facility] for hiatal hernia repair and perhaps fundoplication. In the interval since then he has recovered for the most part but still has occasional upper abdominal discomfort and sometimes has issues with the inability to belch or vomit. These are expected postoperative symptoms. He has not had significant issues regardingpancreatitis since I last saw him. He continues on Creon but does mention that sometimes he forgetsto take it and he only takes 1 capsule before meals. His weight remains stable and he does not havechronic diarrhea but does not fact have bowel irregularity which she has had for a long time which m ay be more likely related to an underlying irritable bowel syndrome. He also recently had surgery for a hammer toe. His general surgeon at [facility] is considering repair of a postoperative incisional hernia as well. Current Outpatient Medications on File Prior to Visit Medication Sig Dispense Refill ??? metoprolol succinate XL (Toprol-XL) 50 mg ER 24 hr tablet Take 50 mg by mouth daily. ??? gbzisx-vrdbslck-iluzepa (Cresadi 6) 6,000-19,000 -30,000 unit capsule Take by mouth 3 timesdaily. ??? calciTRIoL (Rocaltrol) 0.25 mcg capsule Take 0.25 mcg by mouth. 3 TIMES WEEKLY ??? amLODIPine (Norvasc) 5 mg tablet Take 1 tablet by mouth daily. 90 tablet 3 ??? acetaminophen (Tylenol) 325 mg tablet Take 650 mg by mouth Every 4 hours as needed. ??? omeprazole (PriLOSEC) 40 mg Capsule, Delayed Release(E.C.) Take 40 mg by mouth daily. ??? amoxicillin (Amoxil) 500 mg Capsule TAKE FOUR CAPSULES BY MOUTH 1 HOUR PRIOR TO VISIT ??? triamcinolone (KENALOG) 0.1 % Ointment Apply to affected areas on ankles twice daily x 2 weeks,then reduce to once daily x 2 weeks. For recurrences, okay to use up to 14 days total per month 45 g 3 ??? lisinopriL (Prinivil;Zestril) 5 mg Tablet TK 1 T PO D ??? cyanocobalamin, Vitamin B-12, (VITAMIN B-12) 100 mcg Tablet Take 100 mcg by mouth daily. ??? HYDROmorphone (Dilaudid) 2 mg tablet Take 2 mg by mouth Every 8 hours as needed. ??? allopurinol (ZYLOPRIM) 100 mg Tablet Take 100 mg by mouth daily. No current facility-administered medications on file prior to visit. Review of Systems: Constitutional: no weight loss [...] the past 24 hrs: Pulse BP SpO2 09/25/22 1621 70 119/74 96 % Weight: 78.2 kg (172 lb 8 oz) (with boots on) Constitutional: Appears well-developed and well-nourished. Eyes: No scleral icterus. remainder of exam deferred Assessment and Plan: 1) Chronic pancreatitis which remains relatively asymptomatic and I wonder whether he still needs to take Creon. I suggested that he could try tapering off of it and if his symptoms remain unchanged and he could stay off it but if he develops abdominal discomfort bloating diarrhea or unintentional weight loss and he can go back on it. 2) Will also arrange follow-up upper endoscopy for Sharma's surveillance and colonoscopy for polypsurveillance in approximately 1 year. 3) Otherwise follow-up as needed in the interval. Most of this 20 minute visit spent in discussion and coordination of care regarding chronic pancreatitis. Lawrence Gar MD viticulturist Director, GI Endoscopy Section of Gastroenterology and [place] [address] Cc:Slade Tran MD [address] [place] [address] [place] [address] documented in this encounter Plan of Treatment Upcoming Encounters Date Type Department Care Team (Latest Contact Info) Description 01/02/2024 7:30 AM EDT Hospital Encounter [place] [address] Lawrence Gar MD [facility] [place] [address] 01/02/2024 7:30 AM EDT - 01/02/2024 8:30 AM EDT Surgery [place] [address] Lawrence Gar MD [facility] [place] [address] EGD, UPPER GI ENDOSCOPY (WRVU 2.09) 11/17/2024 4:20 PM EDT Office Visit [place] [address] Lawrence Gar MD [facility] [place] [address] Scheduled Procedures Name Priority Associated Diagnoses Date/Ti me EGD, UPPER GI ENDOSCOPY (WRVU 2.09) Sharma's esophagus with dysplasia 01/02/2024 7:30 AM EDT documented as of this encounter Visit Diagnoses Diagnosis Alcohol-induced chronic pancreatitis Chronic pancreatitis Sharma's esophagus with dysplasia Sharma's esophagus documented in this encounter Care Teams Account Supervisor Relationship Specialty Start Date End Date Slade Tran MD [address] [place] [address] PCP - General Family Medicine 06/19/22 11/05/23 documented as of this encounter
--- OUTSIDE RECORDS SUMMARY | 2023-12-10 04:59 | XMS_ITS | Encounter Summary ---
Author Organization [facility] [place] [address] Care Team Providers Care Rod Hanger Name Role Phone Slade Tran MD Primary Care Provider [phone] Encounter Details Date Type Department Care Team (Latest Contact Info) Description 01/21/2023 Travel Social History Tobacco Use Types Packs/Day [...] 7:30 AM EDT Hospital En[place] [address] Lawrence Gar MD [facility] [place] [address] 01/02/2024 7:30 AM EDT - 01/02/2024 8:30 AM EDT [place] [address] Lawrence Gar MD [facility] [place] [address] EGD, UPPER GI ENDOSCOPY (WRVU 2.09) 11/17/2024 4:20 PM EDT Office [place] [address] Lawrence Gar MD [facility] [place] [address] Scheduled Procedures Name Priority Associated Diagnoses Date/Ti me EGD, UPPER GI ENDOSCOPY (WRVU 2.09) Sharma's esophagus with dysplasia 01/02/2024 7:30 AM EDT documented as of this encounter Visit Diagnoses Not on filedocumented in this encounter Care Teams Rod Hanger Relationship Specialty Start Date End Date Slade Tran MD [address] [place] [address] PCP - General Family Medicine 06/19/22 11/05/23 documented as of this encounter
--- OUTSIDE RECORDS SUMMARY | 2023-12-10 04:59 | XMS_ITS | Encounter Summary ---
Author Organization [facility] [place] [address] Care Team Providers Care Swatch Paster Name Role Phone Slade Tran MD Primary Care Provider Encounter Details Date Type Department Care Team (Late st Contact Info) Description 09/24/2023 External Results Nephrology [place] [phone] Karol Iverson RN Social History Tobacco Use [...] 7:30 AM EDT Hospital Encounter [place] [address] Lawrence Gar MD [facility] [place] [address] 01/02/2024 7:30 AM EDT - 01/02/2024 8:30 AM EDT Surgery [place] [phone] Lawrence Gar MD [facility] [place] [address] EGD, UPPER GI ENDOSCOPY (WRVU 2.09) 11/17/2024 4:20 PM EDT Office Visit [place] [address] Lawrence Gar MD [facility] [place] [address] Scheduled Procedures Name Priority Associated Diagnoses Date/Ti me EGD, UPPER GI ENDOSCOPY (WRVU 2.09) Sharma's esophagus with dysplasia 01/02/2024 7:30 AM EDT documented as of this encounter Procedures Procedure Name Priority Date/Time Associated Diagnosis Comments BASIC METABOLIC PANEL (NON-FASTING) Routine 09/11/2023 documented in this encounter Results * Basic Metabolic Panel (non-fasting) (09/11/2023) Glucose Lvl 97 BUN 68 Creatinine 3.9 Estimated GFR 15.9 Sodium 140 Potassium 5.7 Chloride 108 CO2 16 Calcium 8.3 Blood 09/11/2023 Historical Provider CHEMISTRY ORDERAB LES documented in this encounter Visit Diagnoses Not on filedocumented in this encounter Care Teams Swatch Paster Relationship Specialty Start Date End Date Slade Tran MD [facility] [place] [address] PCP - General Family Medicine 06/19/22 11/05/23 documented as of this encounter
--- OUTSIDE RECORDS SUMMARY | 2023-12-10 04:59 | XMS_ITS | Encounter Summary ---
Author Organization [facility] [place] [address] Care Team Providers Care Maintenance Porter Name Role Phone Slade Tran MD Primary Care Provider [phone] Encounter Details Date Type Department Care Team (Latest Contact Info) Description 01/21/2023 12:30 PM EDT Laboratory Appointment Lab [address] [place] [phone] Acute worsening of stage 4 chronic kidney disease; CKD (chronic kidney disease) stage 4, GFR 15-29 ml/min; Primary hypertension; Hyperparathyroidism due to renal insufficiency Social History [...] 7:30 AM EDT Hospital Encounter [place] [address] Lawrence Gar MD [facility] [place] [address] 01/02/2024 7:30 AM EDT - 01/02/2024 8:30 AM EDT [place] [address] Lawrence Gar MD [facility] [place] [address] EGD, UPPER GI ENDOSCOPY (WRVU 2.09) 11/17/2024 4:20 PM EDT Office [place] [address] Lawrence Gar MD [facility] [place] [address] Scheduled Procedures Name Priority Associated Diagnoses Date/Ti me EGD, UPPER GI ENDOSCOPY (WRVU 2.09) Sharma's esophagus with dysplasia 01/02/2024 7:30 AM EDT documented as of this encounter Procedures Procedure Name Priority Date/Time Associated Diagnosis Comments HC CREATININE - NON BLOOD Routine 01/21/2023 2:04 PM EDT Acute worsening of stage 4 chronic kidney disease CKD (chronic kidney disease) stage 4, GFR 15-29 ml/min Primary hypertension Hyperparathyroidism due to renal insufficiency HC UA W/OUT MICROSCOPIC Routine 01/21/2023 2:04 PM EDT Acute worsening of stage 4 chronic kidney disease CKD (chronic kidney disease) stage 4, GFR 15-29 ml/min Primary hypertension Hyperparathyroidism due to renal insufficiency HC PARATHYROID HORMONE(PTH INTACT Routine 01/21/2023 12:55 PM EDT Acute worsening of stage 4 chronic kidney disease CKD (chronic kidney disease) stage 4, GFR 15-29 ml/min Primary hypertension Hyperparathyroidism due to renal insufficiency HEMOGRAM Routine 01/21/2023 12:55 PM EDT Acute worsening of stage 4 chronic kidney disease CKD (chronic kidney disease) stage 4, GFR 15-29 ml/min Primary hypertension Hyperparathyroidism due to renal insufficiency DIFFERENTIAL, AUTOMATED Routine 01/21/2023 12:55 PM EDT Acute worsening of stage 4 chronic kidney disease CKD (chronic kidney disease) stage 4, GFR 15-29 ml/min Primary hypertension Hyperparathyroidism due to renal insufficiency HC CBC,PLT & AUTO DIFF Routine 01/21/2023 12:55 PM EDT Acute worsening of stage 4 chronic kidney disease CKD (chronic kidney disease) stage 4, GFR 15-29 ml/min Primary hypertension Hyperparathyroidism due to renal insufficiency HC VENIPUNCTURE Routine 01/21/2023 12:55 PM EDT Acute worsening of stage 4 chronic kidney disease CKD (chronic kidney disease) stage 4, GFR 15-29 ml/min Primary hypertension Hyperparathyroidism due to renal insufficiency HC ALBUMIN, SERUM Routine 01/21/2023 12: 55 PM EDT Acute worsening of stage 4 chronic kidney disease CKD (chronic kidney disease) stage 4, GFR 15-29 ml/min Primary hypertension Hyperparathyroidism due to renal insufficiency BASIC METABOLIC PANEL (NON-FASTING) Routine 01/21/2023 12:55 PM EDT Acute worsening of stage 4 chronic kidney disease CKD (chronic kidney disease) stage 4, GFR 15-29 ml/min Primary hypertension Hyperparathyroidism due to renal insufficiency documented in this encounter Results * (ABNORMAL) Protein/Creatinine Ratio, urine (01/21/2023 2:04 PM EDT) U Creatinine 55 mg/dL [facility] U Protein Ran 84(H) 0 - 12 mg/dL [facility] Prot/Cre Ratio 1.5 ratio [facility] Urine 01/21/2023 2:04 PM EDT 01/21/2023 2:21 PM EDT Narrative Resulting Agency Comment Spec In Lab Jovani Richardson MD URINE ORDERABLES [facility] [place] [address] * (ABNORMAL) Urinalysis without microscopic (01/21/2023 2:04 PM EDT) Glucose UA Negative Negative mg/dL [facility] Protein UA 100(A) Negative mg/dL [facility] Bilirubin UA Negative Negative mg/dL [facility] Comment: Clinical correlation required for positive Urine Bilirubin results as false positive may occur with some drugs and drug related products. If a false positive is suspected a serum total bilirubin should be considered if clinically indicated. Urobilinogen UA Normal Normal mg/dL [facility] pH UA 6.0 5.0 - 8.0 [facility] Blood UA Negative Negative mg/dL [facility] Ketones UA Negative Negative mg/dL [facility] Nitrite UA Negative Negative [facility] Leukocytes UA Negative Negative [facility] Appearance UA Clear Clear [facility] Spec [place] UA 1.015 1.005 - 1.030 [facility] Color UA Yellow Yellow [facility] Urine 01/21/2023 2:04 PM EDT 01/21/2023 2:21 PM EDT Narrative Resulting Agency Comment Spec In Lab Jovani Richardson MD URINE ORDERABLES Performing Organization Address City/State/[facility] Co de Phone Number [facility] [place] [address] * Differential, Automated (01/21/2023 12:55 PM EDT) Neutrophils % 65.6 % [facility] Neutr Abs (ANC) 3.66 1.70 - 6.10 x10(3)/[facility] Lymphocytes % 16.1 % [facility] Lymphocytes Abs 0.9 0.9 - 3.2 x10(3)/[facility] Monocytes % 10.8 % [facility] Monocyte Abs 0.6 0.3 - 0.9 x10(3)/[facility] Eosinophils % 6.6 % [facility] Eosinophils Abs 0.4 0.0 - 0.4 x10(3)/[facility] Basophils % 0.7 % [facility] Basophils Abs 0.0 0.0 - 0.1 x10(3)/[facility] Immature Gran % 0.20 % [...] Gran Abs 0.01 0.00 - 0.04 x10(3)/[facility] Blood 01/21/2023 12:5 5 PM EDT 01/21/2023 1:11 PM EDT Narrative Resulting Agency Comment Spec In Lab Jovani Richardson MD HEMATOLOGY ORDERABLE S [facility] [place] [address] * (ABNORMAL) Hemogram (01/21/2023 12:55 PM EDT) WBC 5.6 4.0 - 9.5 x10(3)/[facility] RBC 3.09(L) 4.58 - 5.54 x10(6)/[facility] Hemoglobin 9.4(L) 13.7 - 16.5 g/dL [facility] Hematocrit 29.0(L) 40.5 - 48.5 % [facility] MCV 93.9(H) 82.9 - 93.1 fL [facility] MCH 30.4 27.5 - 32.1 pg [facility] MCHC 32.4 32.0 - 35.7 g/dL [facility] Platelets 205 145 - 357 x10(3)/[facility] RDWSD 50.4(H) 36.0 - 45.0 [facility] RDWCV 14.6(H) 11.4 - 13.8 % [facility] MPV 10.7 7.6 - 12.9 [facility] nRBC % Auto 0.0 % [facility] nRBC Abs Auto 0.000 0.000 - 0.000 x10(3)/mcL [facility] Blood 01/21/2023 12:5 5 PM EDT 01/21/2023 1:11 PM EDT Narrative Resulting Agency Comment Spec In Lab Jovani Richardson MD HEMATOLOGY ORDERABLE S [facility] [place] [address] * (ABNORMAL) Basic Metabolic Panel (non-fasting) (01/21/2023 12:55 PM EDT) Glucose Lvl 93 65 - 199 mg/dL [facility] Comment:Diabetes: >=200 mg/d L plus symptoms BUN 57(H) 10 - 20 mg/dL [facility] Creatinine 2.71(H) 0.80 - 1.50 mg/dL [facility] Sodium 140 135 - 145 mmol/L [facility] Potassium 5.6(H) 3.5 - 5.0 mmol/L [facility] Comment: Please note: ??Patients with WBC >100,000 may have falsely elevated Potassium levels. ??For accurate Potassium quantification in these patients send serum separator tube (gold top) for subsequent determinations. ??Contact the Clinical Chemistry Laboratory if there are any questions. Chloride 112(H) 98 - 107 mmol/L [facility] CO2 15(L) 22 - 31 mmol/L [facility] Anion Gap 13 5 - 15 mmol/L [facility] Calcium 8.4(L) 8.5 - 10.5 mg/dL [facility] Estimated GFR 25(L) >=60 mL/min/1. 73 m?? [facility] [...] and symptoms in addition to eGFR. Blood 01/21/2023 12:5 5 PM EDT 01/21/2023 1:11 PM EDT Narrative Resulting Agency Comment Spec In Lab Jovani Richardson MD CHEMISTRY ORDERABLES Performing Organization Address City/[facility]/ZIP Co de Phone Number [facility] [place] [address] * (ABNORMAL) PTH (01/21/2023 12:55 PM EDT) PTH 126(H) 15 - 65 pg/mL [facility] Blood 01/21/2023 12:5 5 PM EDT 01/21/2023 1:11 PM EDT Narrative Resulting Agency Comment Spec In Lab Jovani Richardson MD CHEMISTRY ORDERABLES Performing Organization Address City/[facility]/ZIP Co de Phone Number [facility] [place] [address] * Albumin Level (01/21/2023 12:55 PM EDT) Albumin 4.3 3.2 - 5.2 g/dL [facility] Blood 01/21/2023 12:5 5 PM EDT 01/21/2023 1:11 PM EDT Narrative Resulting Agency Comment Spec In Lab Jovani Richardson MD CHEMISTRY ORDERABLES Performing Organization Address City/[facility]/ZIP Co de Phone Number [facility] [place] [address] * Phosphorus (01/21/2023 12:55 PM EDT) Phosphorus 3.5 2.5 - 4.5 mg/dL [facility] Blood 01/21/2023 12:5 5 PM EDT 01/21/2023 1:11 PM EDT Narrative Resulting Agency Comment Spec In Lab Jovani Richardson MD CHEMISTRY ORDERABLES [facility] [place] [address] documented in this encounter Visit Diagnoses Diagnosis Acute worsening of stage 4 chronic kidney disease CKD (chronic kidney disease) stage 4, GFR 15-29 ml/min Chronic kidney disease, Stage IV (severe) Primary hypertension Unspecified essential hypertension 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
--- OUTSIDE RECORDS SUMMARY | 2023-12-10 04:59 | XMS_ITS | Encounter Summary ---
Author Organization [facility] [place] [address] Care Team Providers Care Customer Service Administrator Name Role Phone Slade Tran MD Primary Care Provider [phone] Encounter Details Date Type Department Care Team (Latest Contact Info) Description 08/30/2023 Travel Social History Tobacco Use Types Packs/Day [...] 7:30 AM EDT Hospital En[place] [address] Lawrence Gar MD [facility] [place] [address] 01/02/2024 7:30 AM EDT - 01/02/2024 8:30 AM EDT [place] [address] Lawrence Gar MD [facility] [place] [address] EGD, UPPER GI ENDOSCOPY (WRVU 2.09) 11/17/2024 4:20 PM EDT Office [place] [address] Lawrence Gar MD [facility] [place] [address] Scheduled Procedures Name Priority Associated Diagnoses Date/Ti me EGD, UPPER GI ENDOSCOPY (WRVU 2.09) Sharma's esophagus with dysplasia 01/02/2024 7:30 AM EDT documented as of this encounter Visit Diagnoses Not on filedocumented in this encounter Care Teams Customer Service Administrator Relationship Specialty Start Date End Date Slade Tran MD [address] [place] [address] PCP - General Family Medicine 06/19/22 11/05/23 documented as of this encounter
--- OUTSIDE RECORDS SUMMARY | 2023-12-10 04:59 | XMS_ITS | Encounter Summary ---
[place] [address] Care Team Providers Care Ux Designer Name Role Phone Slade Tran MD Primary Care Provider [phone] Encounter Details Date Type Department Care Team (Late st Contact Info) Description 09/11/2023 Telephone Nephrology [place] [address] Lui Sanchez RN Social History Tobacco Use Types Packs/Day [...] as of this encounter Miscellaneous Notes * Addendum Note - Lui Sanchez RN - 09/11/2023 4:06 PM EDTAddended by: LUI SANCHEZ on: 09/11/2023 04:06 PM Modules accepted: Orders * Telephone Encounter - Lui Sanchez RN - 09/11/2023 2:24 PM EDT S/O: RN received call from Rakesh at [facility] lab with critical lab value for patient. Creatinine 3.9 RN sent above to Dr. Richardson for review and recommendation. Dr. Richardson would like patient to stop taking his omeprazole if he is still taking it, and have his labs checked again next week. RN spoke with patient and relayed instructions. Patient verbalized understanding. documented in this encounter Plan of Treatment Upcoming Encounters Date Type Department Care Team (Latest Contact Info) Description 01/02/2024 7:30 AM EDT Hospital Encounter Gastroenterology at [place] [phone] Lawrence Gar MD [facility] [place] [address] 01/02/2024 7:30 AM EDT - 01/02/2024 8:30 AM EDT Surgery [place] [address] Lawrence Gar MD [facility] [place] [address] EGD, UPPER GI ENDOSCOPY (WRVU 2.09) 11/17/2024 4:20 PM EDT Office Visit [place] [address] Lawrence Gar MD [facility] [place] [address] Scheduled Procedures Name Priority Associated Diagnoses Date/Ti me EGD, UPPER GI ENDOSCOPY (WRVU 2.09) Sharma's esophagus with dysplasia 01/02/2024 7:30 AM EDT documented as of this encounter Visit Diagnoses Not on filedocumented in this encounter Care Teams Ux Designer Relationship Specialty Start Date End Date Slade Tran MD [facility] [place] [address] PCP - General Family Medicine 06/19/22 11/05/23 documented as of this encounter
--- OUTSIDE RECORDS SUMMARY | 2023-12-10 04:59 | XMS_ITS | Encounter Summary ---
Author Organization [facility] [place] [address] Care Team Providers Care Grocery Worker Name Role Phone Slade Tran MD Primary Care Provider [phone] Encounter Details Date Type Department Care Team (Late st Contact Info) Description 2023 Orders Only [place]rology [place] [phone] Lizet Hayward RN CKD (chronic kidney disease) [...] 7:30 AM EDT Hospital Encounter [place] [phone] Lawrence Gar MD [facility] [place] [address] 01/02/2024 7:30 AM EDT - 01/02/2024 8:30 AM EDT [place] [address] Lawrence Gar MD [facility] [place] [address] EGD, UPPER GI ENDOSCOPY (WRVU 2.09) 11/17/2024 4:20 PM EDT Office [place] [address] Lawrence Gar MD [facility] [place] [address] Scheduled Procedures Name Priority Associated Diagnoses Date/Ti me EGD, UPPER GI ENDOSCOPY (WRVU 2.09) Sharma's esophagus with dysplasia 01/02/2024 7:30 AM EDT documented as of this encounter Results * (ABNORMAL) Protein/Creatinine Ratio, urine (08/30/2023 10:00 AM EDT) U Creatinine 72 mg/dL [facility] U Protein Ran 187(H) 0 - 12 mg/dL [facility] Prot/Cre Ratio 2.[address] [facility] Urine 08/30/2023 10:0 0 AM EDT 08/30/2023 10:39 AM EDT Narrative Resulting Agency Comment Spec In Lab Jovani Richardson MD URINE ORDERABLES [facility] [place] [address] * Vitamin D, 25-Hydroxy (08/30/2023 9:52 AM EDT) 25-OH Vit D Total 21 21 - 100 ng/mL [facility] 25-OH Vit D Interp Insufficient [facility] Blood 08/30/2023 9:52 AM EDT 08/30/2023 9:56 AM EDT Narrative Resulting Agency Comment Spec In Lab Jovani Richardson MD CHEMISTRY ORDERABLES Performing Organization Address City/[facility]/ZIP Co de Phone Number [facility] [place] [address] * Methylmalonic acid, serum (08/30/2023 9:52 AM EDT) Methylmalonic Acid 0.38 <=0.40 nmol/mL [facility] Comment: ADDITIONAL INFORMATION This test was developed and its performance characteristics determined by [facility] in a manner consistent with CLIA requirements. This test has not been cleared or approved by the U.S. Food and Drug Administration. Test Performed by: [facility] [address] Lap Cutter Truer Operator: Todd Worthington M.D. Ph.D.; CLIA# [id number] Blood 08/30/2023 9:52 AM EDT 08/30/2023 3:38 PM EDT Narrative Resulting Agency Comment Spec In Lab Jovani Richardson MD CHEMISTRY ORDERABLES Performing Organization Address City/[facility]/ZIP Co de Phone Number [facility] [place] [address] * Folate, serum (08/30/2023 9:52 AM EDT) Folate Lvl >20.0 4.8 - 24.2 ng/mL [facility] Blood 08/30/2023 9:52 AM EDT 08/30/2023 9:56 AM EDT Narrative Resulting Agency Comment Spec In Lab Jovani Richardson MD CHEMISTRY ORDERABLES Performing Organization Address City/[facility]/ZIP Co de Phone Number [facility] [place] [address] * Vitamin B12 (08/30/2023 9:52 AM EDT) Vitamin B-12 608 232 - 1,245 pg/mL [facility] Blood 08/30/2023 9:52 AM EDT 08/30/2023 9:56 AM EDT Narrative Resulting Agency Comment Spec In Lab Jovani Richardson MD CHEMISTRY ORDERABLES Performing Organization Address City/[facility]/ZIP Co de Phone Number [facility] [place] [address] * Iron and TIBC (08/30/2023 9:52 AM EDT) Iron 75 45 - 160 mcg/dL [facility] TIBC 251 250 - 450 mcg/dL [facility] Iron Saturation 30 20 - 50 % [facility] Blood 08/30/2023 9:52 AM EDT 08/30/2023 9:56 AM EDT Narrative Resulting Agency Comment Spec In Lab Jovani Richardson MD CHEMISTRY ORDERABLES Performing Organization Address City/[facility]/ZIP Co de Phone Number [facility] [place] [address] * Ferritin (08/30/2023 9:52 AM EDT) Pathologist [facility] Ferritin 152 31 - 409 ng/mL [facility] Comment: Please note that as of 05/01/2023, the reference intervals for Ferritin have been updated. Blood 08/30/2023 9:52 AM EDT 08/30/2023 9:56 AM EDT Narrative Resulting Agency Comment Spec In Lab Jovani Richardson MD CHEMISTRY ORDERABLES Performing Organization Address City/[facility]/ZIP Co de Phone Number [facility] [place] [address] * (ABNORMAL) PTH (08/30/2023 9:52 AM EDT) PTH 145(H) 15 - 65 pg/mL [facility] Blood 08/30/2023 9:52 AM EDT 08/30/2023 9:56 AM EDT Narrative Resulting Agency Comment Spec In Lab Jovani Richardson MD CHEMISTRY ORDERABLES Performing Organization Address City/[facility]/ZIP Co de Phone Number [facility] [place] [address] * Uric acid (08/30/2023 9:52 AM EDT) Uric Acid 8.2 3.5 - 8.5 mg/dL [facility] Blood 08/30/2023 9:52 AM EDT 08/30/2023 9:56 AM EDT Narrative Resulting Agency Comment Spec In Lab Jovani Richardson MD CHEMISTRY ORDERABLES Performing Organization Address [facility] Co de Phone Number [facility] [place] [address] * Albumin Level (08/30/2023 9:52 AM EDT) Albumin 4.4 3.2 - 5.2 g/dL [facility] Blood 08/30/2023 9:52 AM EDT 08/30/2023 9:56 AM EDT Narrative Resulting Agency Comment Spec In Lab Jovani Richardson MD CHEMISTRY ORDERABLES Performing Organization Address City/[facility] Co de Phone Number [facility] [place] [address] * Phosphorus (08/30/2023 9:52 AM EDT) Phosphorus 3.8 2.5 - 4.5 mg/dL [facility] Blood 08/30/2023 9:52 AM EDT 08/30/2023 9:56 AM EDT Narrative Resulting Agency Comment Spec In Lab Jovani Richardson MD CHEMISTRY ORDERABLES [facility] [place] [address] * (ABNORMAL) Basic Metabolic Panel (non-fasting) (08/30/2023 9:52 AM EDT) Glucose Lvl 61(L) 65 - 199 mg/dL [facility] Comment:Diabetes: >=200 mg/d L plus symptoms BUN 49(H) 10 - 20 mg/dL [facility] Creatinine 3.21(H) 0.80 - 1.50 mg/dL [facility] Sodium 140 135 - 145 mmol/L [facility] Potassium 5.0 3.5 - 5.0 mmol/L [facility] Comment: Please note: ??Patients with WBC >100,000 may have falsely elevated Potassium levels. ??For accurate Potassium quantification in these patients send serum separator tube (gold top) for subsequent determinations. ??Contact the Clinical Chemistry Laboratory if there are any questions. Chloride 109(H) 98 - 107 mmol/L [facility] CO2 17(L) 22 - 31 mmol/L [facility] Anion Gap 14 5 - 15 mmol/L [facility] Calcium 8.7 8.5 - 10.5 mg/dL [facility] Estimated GFR 20(L) >=60 mL/min/1. 73 m?? [facility] Comment: This patient's estimated GFR [...] and symptoms in addition to eGFR. Blood 08/30/2023 9:52 AM EDT 08/30/2023 9:56 AM EDT Narrative Resulting Agency Comment Spec In Lab Jovani Richardson MD CHEMISTRY ORDERABLES [facility] [place] [address] documented in this encounter Visit Diagnoses Diagnosis CKD (chronic kidney disease) stage 4, GFR 15-29 ml/min Chronic kidney disease, Stage IV (severe) Sharma's esophagus with dysplasia Sharma's esophagus documented in this encounter Care Teams Grocery Worker Relationship Specialty Start Date End Date Slade Tran MD [address] [place] [address] PCP - General Family Medicine 06/19/22 11/05/23 documented as of this encounter
--- OUTSIDE RECORDS SUMMARY | 2023-12-10 04:59 | XMS_ITS | Encounter Summary ---
[place] [address] Care Team Providers Care Security Manager Name Role Phone Slade Tran MD Primary Care Provider [phone] Encounter Details Date Type Department Care Team (Late st Contact Info) Description 07/09/2022 Telephone [place] [address] Clarissa Zamudio, RN Social History Tobacco Use Types Packs/Day [...] encounter Miscellaneous Notes * Telephone Encounter - Clarissa Zamudio RN - 07/09/2022 11:20 AM EST Incoming VM from Mathew to cancel his 07/[address] Gar. He would like a call back to re-schedule. Forwarded to scheduling documented in this encounter Plan of Treatment Upcoming Encounters Date Type Department Care Team (Latest Contact Info) Description 01/02/2024 7:30 AM EDT Hospital Encounter [place] [address] Lawrence Gar MD [facility] [address] [place] [address] 01/02/2024 7:30 AM EDT - 01/02/2024 8:30 AM EDT Surgery [place] [address] Lawrence Gar MD [facility] [address] [place] [address] EGD, UPPER GI ENDOSCOPY (WRVU 2.09) 11/17/2024 4:20 PM EDT Office [place] [address] Lawrence Gar MD [facility] [address] [place] [address] Scheduled Procedures Name Priority Associated Diagnoses Date/Ti me EGD, UPPER GI ENDOSCOPY (WRVU 2.09) Sharma's esophagus with dysplasia 01/02/2024 7:30 AM EDT documented as of this encounter Visit Diagnoses Not on filedocumented in this encounter Care Teams Security Manager Relationship Specialty Start Date End Date Slade Tran MD [address] [place] [address] PCP - General Family Medicine 06/19/22 11/05/23 documented as of this encounter
--- OUTSIDE RECORDS SUMMARY | 2023-12-10 04:59 | XMS_ITS | Encounter Summary ---
Author Organization [facility] Address [facility] [place] [address] Care Team Providers Care Adjuster Name Role Phone Slade Tran MD Primary Care Provider [phone] Encounter Details Date Type Department Care Team (Latest Contact Info) Description 04/09/2023 10:40 AM EST Office Visit Ne[place] [address] Jovani Richardson MD [facility] [place] [address] A, Nurse Clinician None CKD (chronic kidney disease) stage 4, GFR 15-29 ml/min; Primary hypertension; Hyperparathyroidism due to renal insufficiency; Anemia of chronic renal failure, stage 4 (severe) Social History Tobacco Use Types Packs/Day Years [...] Sign Reading Time Taken Comments Blood Pressure 124/90 04/09/2023 10:30 AM EST Pulse 69 04/09/2023 10:30 AM EST Temperature - - Respiratory Rate - - Oxygen Saturation 98% 04/09/2023 10:30 AM EST Inhaled Oxygen Concentration - - Weight 74.8 kg (165 lb) 04/09/2023 10:30 AM EST Height 167.6 cm (5' 6) 04/09/2023 10:30 AM EST Body Mass Index 26.63 04/09/2023 10:30 AM EST documented in this encounter Progress Notes * Jovani Richardson MD - 04/09/2023 10:40 AM EST [facility] [address] [place] [address] Reason for Clinic Visit: Systems Review and CKD management. Seen in clinic with: CKD related to: Hypertension History of Present Illness: Started Jiardiance. Notices an increase in daytime urination but not having any more frequent nocturia. Also started oral Fe supplements and calcitriol. He feels his energy has greatly improved since starting these and is able to [place] [address] [place] whereas he previously became quite fatigued when trying to do so. History obtained by RN Specialist: Patient last seen in clinic on 01/21/23, eGFR 25. Review of Systems: Sign/Symptom Comments Activity level/fatigue: Change in sleep patterns: Nocturia: Appetite changes: Food aversions: Nausea: Vomiting: Bowels: Edema: Shortness of breath: Orthopnea/PND: Muscle Cramping: Cold intolerance: Itching: Bruising/bleeding: Mental Status Changes: Recent Home Blood Pressure Control: Recent Lipid Management: Recent Diabetic Management Additional CCM Comments: How's your health been in the last 4 weeks: Poor, Fair, Good, Very Good, Excellent Advanced Directives: on file in eD-H Social Determinant Date/Comments Food Security/ Nutritional Education Stable Housing/ Safety Concerns Community Supports/ Transportation issues/ Appointment coordination Functional Status/ Assistive devices Learning Style/Considerations Engagement/Readiness to learn or change Financial/Insurance concerns Employment status Hepatitis B Status: Serum Testing Date of Testing Results Hep B sAb/Hep B sAg Not tested Vaccination Status: not documented in record Education: Anticipated Renal Replacement Therapy Plan: Transplant Evaluation: Fistula Date/Type of Initial Access/Surgeon: PMH: No past medical history on file. ALLERGIES: Allergies Allergen Reactions Morphine Hives MEDICATIONS: Current Outpatient Medications Medication Sig Dispense Refill pyridoxine, vitamin B6, (Vitamin B6) 100 mg tablet Take 100 mg by mouth daily. ferrous gluconate (Ferate) 324 mg (37.5 mg iron) tablet Take 324 mg by mouth every other day. metoprolol succinate XL (Toprol-XL) 50 mg ER 24 hr tablet Take 50 mg by mouth daily. ugkcmi-pegkadew-vxbkqpp DR (Creon 6) 6,000-19,000 -30,[address] capsule Take by mouth 3 times daily. calciTRIoL (Rocaltrol) 0.25 mcg capsule Take 0.25 mcg by mouth daily. 3 TIMES WEEKLY amLODIPine (Norvasc) 5 mg tablet Take 1 tablet by mouth daily. (Patient taking differently: Take 2.5 mg by mouth daily.) 90 tablet 3 acetaminophen (Tylenol) 325 mg tablet Take 650 mg by mouth Every 4 hours as needed. HYDROmorphone (Dilaudid) 2 mg tablet Take 2 mg by mouth Every 8 hours as needed. omeprazole (PriLOSEC) 40 mg Capsule, Delayed Release(E.C.) Take 40 mg by mouth daily. amoxicillin (Amoxil) 500 mg Capsule TAKE FOUR CAPSULES BY MOUTH 1 HOUR PRIOR TO VISIT triamcinolone (KENALOG) 0.1 % Ointment Apply to [...] Tablet Take 5 mg by mouth daily. cyanocobalamin, Vitamin B-12, (VITAMIN B-12) 100 mcg Tablet Take 100 mcg by mouth daily. allopurinol (ZYLOPRIM) 100 mg Tablet Take 100 mg by mouth daily. No current facility-administered medications for this visit. PHYSICAL EXAM: There were no vitals filed for this visit. There is no height or weight on file to calculate BMI. General appearance NAD Head Eyes ENT Neck Respiratory CTA COR/Vascular reg Abdomen Skin Neuro Asterixis Extremities No edema Other LABS: No results found for this or any previous visit (from the past 336 hour(s)). ASSESSMENT AND PLAN: Problem: Chronic Kidney Disease Estimated GFR (mL/min/1.73 m??) Date Value 01/21/2023 25 (L) 06/27/2021 24 (L) 04/20/2020 23 (L) CKD Stage 4 Potassium Date Value Ref Range Status 01/21/2023 5.6 (H) 3.5 - 5.0 mmol/L Final Comment: Please note: Patients with WBC >100,000 may have falsely elevated Potassium levels. For accurate Potassium quantification in these patients send serum separator tube (gold top) for subsequent determinations. Contact the Clinical Chemistry Laboratory if there are any questions. 06/27/2021 4.4 3.5 - 5.0 mmol/L Final Comment: Please note: Patients with WBC >100,000 may have falsely elevated Potassium levels. For accurate Potassium quantification in these patients send serum separator tube (gold top) for subsequent determinations. Contact the Clinical Chemistry Laboratory if there are any questions. 04/20/2020 4.5 3.5 - 5.0 mmol/L Final Comment: Please note: Patients with WBC >100,000 may have falsely elevated Potassium levels. For accurate Potassium quantification in these patients send serum separator tube (gold top) for subsequent determinations. Contact the Clinical Chemistry Laboratory if there are any questions. CO2 (mmol/L) Date Value 01/21/2023 15 (L) 06/27/2021 17 (L) 04/20/2020 21 (L) Not on bicarb No results found for: URICACID On allopurinol 100mg daily Standard Recommendations: Reduce rate of progression. Education for CKD stage- specific issues. RN Notes: MD/COLOR ROOM ATTENDANT A/P: stage 4 CKD secondary to hypertension. Cr up slightly in the face of starting Jiardiance. We discussed the potential for dehydration on this medication as well as the care home benefits inspite of possible short term decreases in renal function. Risk factor modification as below. Problem: Management of Anemia related to Chronic Kidney Disease (CKD) Hemoglobin (g/dL) Date Value 01/21/2023 9.4 (L) Goal: 9.5-10.9 g/dl No results found for: FERRITIN Goal: >100ng/ml No results found for: IRONSAT Goal: >20% YISSEL: Yes/No; start date: ; last dose: Drug/Dose/Frequency: Aranesp mcg monthly Where administered (clinic/hospital/home): IV Iron replacement therapy (Venofer), Last dose: RN Notes: MD/COLOR ROOM ATTENDANT A/P: continue oral Fe Problem: Hypertension BP: ()/() Goal (if urine alb:cr ratio is <30mg/g): </= 140/90 Goal (if urine alb:cr ratio is >30mg/g): </= 130/80 Standard Recommendations: Sodium intake < 2 Gm per day. RN Notes: MD/COLOR ROOM ATTENDANT A/P: continue current medications. K has normalized; will consider transitioning from lisinopril/amlodipine to lisinopril monotherapy if K remains well controlled. Problem: Proteinuria Prot/Cre Ratio (ratio) Date Value 01/21/2023 1.5 Goal: <0.2mg/mg RN Notes: MD/COLOR ROOM ATTENDANT A/P: continue lisinopril, SGLT-2 inhibitor Problem: Bone and mineral metabolism No results found for: 25OHVITD Not on vitamin D PTH (pg/mL) Date Value 01/21/2023 126 (H) 06/27/2021 98 (H) 04/20/2020 51 On calcitriol 0.25mcg daily Goal: Stage 3: 35-70 pg/ml Stage 4: 70-110 pg/ml Stage 5: 150-300 pg/ml Phosphorus (mg/dL) Date Value 01/21/2023 3.5 06/27/2021 3.0 Not on sevelamer/calcium carbonate (Tums)/calcium acetate Goal: 2.7-4.6mg/dl Calcium (mg/dL) Date Value 01/21/2023 8.4 (L) 06/27/2021 9.2 04/20/2020 9.7 Not on calcium carbonate Goal: 8.5-10.5mg/dl RN Notes: MD/COLOR ROOM ATTENDANT A/P: continue calcitriol Problem: Nutrition Albumin Date Value 01/21/2023 4.3 g/dL 06/27/2021 4.5 g/dL 04/20/2020 4.5 gm/dL Goal: >/= 4.0 gm/dl There is no height or weight on file to calculate BMI. Goal: 20-25 kg/m2 RN Notes: /COLOR ROOM ATTENDANT A/P: Problem: Dyslipidemia No results found for: LDLCHOL Goal: <100 mg/dl No results found for: TRIG Goal: <150 mg/dl Not on statin Not on ezetimibe RN Notes: MD/COLOR ROOM ATTENDANT A/P: defer lipid management to Dr. Tran. Return to CKD clinic: 3 months documented in this encounter Plan of Treatment Upcoming Encounters Date Type Department Care Team (Latest Contact Info) Description 01/02/2024 7:30 AM EDT Hospital En[place] [address] Lawrence Gar MD [facility] DR [place]STRO[place] [address] 01/02/2024 7:30 AM EDT - 01/02/2024 8:30 AM EDT [place] [address] Lawrence Gar MD [facility] DR [place]STROENTER[place] [address] EGD, UPPER GI ENDOSCOPY (WRVU 2.09) 11/17/2024 4:20 PM EDT Office [place] [address] Lawrence Gar MD [facility] DR [place]STROENTER[place] [address] Scheduled Procedures Name Priority Associated Diagnoses Date/Ti [...] of chronic renal failure, stage 4 (severe) Sharma's esophagus with dysplasia Sharma's esophagus documented in this encounter Care Teams Adjuster Relationship Specialty Start Date End Date Slade Tran MD [facility] [place] [address] PCP - General Family Medicine 06/19/22 11/05/23 documented as of this encounter
--- OUTSIDE RECORDS SUMMARY | 2023-12-10 04:59 | XMS_ITS | Encounter Summary ---
Author Organization [facility] [place] [address] Care Team Providers Care Medical Staff Physician Name Role Phone Slade Tran MD Primary Care Provider [phone] Encounter Details Date Type Department Care Team (Late st Contact Info) Description 09/25/2023 6:25 PM EDT Ancillary Procedure [place] [phone] Slade Tran MD [facility] [place] [address] Social History Tobacco Use Types Packs/Day Years [...] 7:30 AM EDT Hospital En[place] [phone] Lawrence Gar MD [facility] [place] [address] 01/02/2024 7:30 AM EDT - 01/02/2024 8:30 AM EDT [place] [address] Lawrence Gar MD [facility] DR [place] [address] EGD, UPPER GI ENDOSCOPY (WRVU 2.09) 11/17/2024 4:20 PM EDT Office [place] [address] Lawrence Gar MD [facility] DR [place] [address] Scheduled Procedures Name Priority Associated Diagnoses Date/Ti me EGD, UPPER GI ENDOSCOPY (WRVU 2.09) Sharma's esophagus with dysplasia 01/02/2024 7:30 AM EDT documented as of this encounter Procedures Procedure Name Priority Date/Time Associated Diagnosis Comments FILM LIBRARY STORAGE ONLY ULTRASOUND STUDY Routine 09/25/2023 6:20 PM EDT documented in this encounter Results * Film Library- Storage Only Ultrasound Study (09/25/2023 6:20 PM EDT) Narrative [facility] - 09/25/2023 6:20 PM EDT This exam is auto-finalizing. It's purpose is for storage only. Slade Tran MD G FILM LIBRARY ORD ERABLES [place], [place] documented in this encounter Visit Diagnoses Not on filedocumented in this encounter Care Teams Medical Staff Physician Relationship Specialty Start Date End Date Slade Tran MD [address] [place] [address] PCP - General Family Medicine 06/19/22 11/05/23 documented as of this encounter
--- OUTSIDE RECORDS SUMMARY | 2023-12-10 04:59 | XMS_ITS | Encounter Summary ---
Author Organization [facility] [place] [address] Care Team Providers Care Wood Machine Carver Name Role Phone Slade Tran MD Primary Care Provider [phone] Encounter Details Date Type Department Care Team (Late st Contact Info) Description 09/19/2023 Telephone [place] [address] Karol Iverson RN Social History Tobacco Use [...] encounter Miscellaneous Notes * Telephone Encounter - Karol Iverson RN - 09/19/2023 12:06 PM EDT LM to review labs and recommendations from Dr Richardson including additional testing documented in this encounter Plan of Treatment Upcoming Encounters Date Type Department Care Team (Latest Contact Info) Description 01/02/2024 7:30 AM EDT Hospital En[place] [address] Lawrence Gar MD [facility] [place] [address] 01/02/2024 7:30 AM EDT - 01/02/2024 8:30 AM EDT [place] [address] Lawrence Gar MD [facility] [place] [address] EGD, UPPER GI ENDOSCOPY (WRVU 2.09) 11/17/2024 4:20 PM EDT Office [place] [address] Lawrence Gar MD [facility] [place] [address] Scheduled Procedures Name Priority Associated Diagnoses Date/Ti me EGD, UPPER GI ENDOSCOPY (WRVU 2.09) Sharma's esophagus with dysplasia 01/02/2024 7:30 AM EDT documented as of this encounter Visit Diagnoses Not on filedocumented in this encounter Care Teams Wood Machine Carver Relationship Specialty Start Date End Date Slade Tran MD [address] [place] [address] PCP - General Family Medicine 06/19/22 11/05/23 documented as of this encounter
--- OUTSIDE RECORDS SUMMARY | 2023-12-10 04:59 | XMS_ITS | Encounter Summary ---
Author Organization [facility] [place] [address] Care Team Providers Care Brick Paving Checker Name Role Phone Slade Tran MD Primary Care Provider [phone] Encounter Details Date Type Department Care Team (Latest Contact Info) Description 08/17/2022 Travel Social History Tobacco Use Types Packs/Day [...] 7:30 AM EDT Hospital Encounter [place] [address] Lawrence Gar MD [facility] [place] [address] 01/02/2024 7:30 AM EDT - 01/02/2024 8:30 AM EDT Surgery [place] [address] Lawrence Gar MD [facility] [place] [address] EGD, UPPER GI ENDOSCOPY (WRVU 2.09) 11/17/2024 4:20 PM EDT Office [place] [address] Lawrence Gar MD [facility] [place] [address] Scheduled Procedures Name Priority Associated Diagnoses Date/Ti me EGD, UPPER GI ENDOSCOPY (WRVU 2.09) Sharma's esophagus with dysplasia 01/02/2024 7:30 AM EDT documented as of this encounter Visit Diagnoses Not on filedocumented in this encounter Care Teams Brick Paving Checker Relationship Specialty Start Date End Date Slade Tran MD [address] [place] [address] PCP - General Family Medicine 06/19/22 11/05/23 documented as of this encounter
--- OUTSIDE RECORDS SUMMARY | 2023-12-10 04:59 | XMS_ITS | Encounter Summary ---
[place] [address] Care Team Providers Care Signal Technician Name Role Phone Slade Tran MD Primary Care Provider [phone] Reason for Referral * Consultation (Routine) - Closed Specialty Diagnoses / Procedures Referred By Devaughn bobo Referred To Contact Nephrology Diagnoses Chronic kidney disease, stage IV (severe) Slade Tran MD [address] [place] [address] [facility] Nephrology [address] [place] [phone] Referral ID Status Reason Start Date Expiration Date V isits Requested Visits Authorized [id number] Closed Consult, Test & Treat PCP Updated and/or Approved 06/19/2022 06/19/2023 3 3 Encounter Details Date Type Department Care Team (Latest Contact Info) Description 06/19/2022 Transcribe Orders eDH Incoming Referrals [phone] Slade Tran MD [address] [place] [address] Chronic kidney disease, stage IV (severe) Social History Tobacco Use Types Packs/Day [...] 7:30 AM EDT Hospital Encounter [place] [address] Lawrence Gar MD [facility] DR GASTROENTEROLOGY [place] [address] 01/02/2024 7:30 AM EDT - 01/02/2024 8:30 AM EDT Surgery [place] [address] Lawrence Gar MD [facility] DR GASTROENTEROLOGY [place] [address] EGD, UPPER GI ENDOSCOPY (WRVU 2.09) 11/17/2024 4:20 PM EDT Office [place] [address] Lawrence Gar MD [facility] DR GASTROENTEROLOGY [place] [address] Scheduled Procedures Name Priority Associated Diagnoses Date/Ti co EGD, UPPER GI ENDOSCOPY (WRVU 2.09) Sharma's esophagus with dysplasia 01/02/2024 7:30 AM EDT Scheduled Referrals Name Type Priority Associated Diagnoses Order Schedule Referral to Nephrology Outpatient Referral Routine Chronic kidney disease, stage IV (severe) Ordered: 06/19/2022 documented as of this encounter Visit Diagnoses Diagnosis Chronic kidney disease, stage IV (severe) Chronic kidney disease, Stage IV (severe) Sharma's esophagus with dysplasia Sharma's esophagus documented in this encounter Care Teams Signal Technician Relationship Specialty Start Date End Date Slade Tran MD [facility] [place] [address] PCP - General Family Medicine 06/19/22 11/05/23 documented as of this encounter
--- OUTSIDE RECORDS SUMMARY | 2023-12-10 04:59 | XMS_ITS | Encounter Summary ---
Author Organization [facility] [place] [address] Care Team Providers Care Product Test Engineer Name Role Phone Jovani Wharton DO Primary Care Provider [phone] Encounter Details Date Type Department Care Team (Late st Contact Info) Description 07/23/2021 9:15 PM EST Ancillary Procedure [place] [phone] Jovani Wharton DO [address] [place] [address] Social History Tobacco Use Types Packs/Day Years [...] 7:30 AM EDT Hospital Encounter [place] [address] Lawrence Gar MD [facility] [place] [address] 01/02/2024 7:30 AM EDT - 01/02/2024 8:30 AM EDT Surgery [place] [address] Lawrence Gar MD [facility] [place] [address] EGD, UPPER GI ENDOSCOPY (WRVU 2.09) 11/17/2024 4:20 PM EDT Office Visit [place] [address] Lawrence Gar MD [facility] [place] [address] Scheduled Procedures Name Priority Associated Diagnoses Date/Ti me EGD, UPPER GI ENDOSCOPY (WRVU 2.09) Sharma's esophagus with dysplasia 01/02/2024 7:30 AM EDT documented as of this encounter Procedures Procedure Name Priority Date/Time Associated Diagnosis Comments FILM LIBRARY STORAGE ONLY CT CHEST ABDOMEN PELVIS Routine 07/23/2021 9:14 PM EST documented in this encounter Results * Film Library- Storage Only CT Chest Abdomen Pelvis (07/23/2021 9:14 PM EST) Narrative [facility] - 07/23/2021 9:14 PM EST This exam is auto-finalizing. It's purpose is for storage only. Jovani Wharton DO [place] FILM LIBRARY ORD ERABLES [place], [place] documented in this encounter Visit Diagnoses Not on filedocumented in this encounter Care Teams Product Test Engineer Relationship Specialty Start Date End Date Jovani Wharton DO [address] [place] [address] PCP - General Family Medicine 10/18/16 06/18/22 documented as of this encounter
--- OUTSIDE RECORDS SUMMARY | 2023-12-10 04:59 | XMS_ITS | Encounter Summary ---
[place] [address] Care Team Providers Care Boarding Machine Operator Name Role Phone Slade Tran MD Primary Care Provider [phone] Encounter Details Date Type Department Care Team (Late st Contact Info) Description 09/18/2023 Telephone Nephrology [place] [address] Karol Iverson, RN Social History Tobacco Use Types Packs/Day [...] encounter Miscellaneous Notes * Addendum Note - Jovani Richardson MD - 09/19/2023 9:04 AM EDTAddended by: JOVANI RICHARDSON on: 09/19/2023 09:04 AM Modules accepted: Orders * Telephone Encounter - Karol Iverson RN - 09/18/2023 3:45 PM EDT S/O: Call from [facility] with critical result. Creatinine 3.9. Full BMP to follow P: Above sent to Dr Richardson for review and recommendation Addendum 4/25/[address] Richardson - Please see if he's taking and PPIs or NSAIDS and stop them if so. Find out where he likes to get labs done; we need a renal US, SPEP/UPEP, serum free light chains. Orders efaxed to [facility] lab and diagnostic imaging Full BMP resulted and entered. CO2 14 and no documented bicarbonate supplementation. Message to Dr Richardson to see if changes recommendations documented in this encounter Plan of Treatment Upcoming Encounters Date Type Department Care Team (Latest Contact Info) Description 01/02/2024 7:30 AM EDT Hospital Encounter Gastroenterology at [place] [phone] Lawrence Gar MD [facility] [place] [address] 01/02/2024 7:30 AM EDT - 01/02/2024 8:30 AM EDT Surgery [place] [address] Lawrence Gar MD [facility] [place] [address] EGD, UPPER GI ENDOSCOPY (WRVU 2.09) 11/17/2024 4:20 PM EDT Office [place] [address] Lawrence Gar MD [facility] [place] [address] Scheduled Orders Name Type Priority Associated Diagnoses Orde r Schedule Basic Metabolic Panel (non-fasting) Lab Routine CKD (chronic kidney disease) stage 4, GFR 15-29 ml/min Primary hypertension Acute worsening of stage 4 chronic kidney disease Expected: 09/19/2023, Expires: 09/18/2024 Protein Electrophoresis, serum Lab Routine CKD (chronic kidney disease) stage 4, GFR 15-29 ml/min Primary hypertension Acute worsening of stage 4 chronic kidney disease Expected: 09/19/2023, Expires: 09/18/2024 Protein Electrophoresis, urine, random Lab Routine CKD (chronic kidney disease) stage 4, GFR 15-29 ml/min Primary hypertension Acute worsening of stage 4 chronic kidney disease Expected: 09/19/2023, Expires: 09/18/2024 Free Light Chains, Serum Lab Routine CKD (chronic kidney disease) stage 4, GFR 15-29 ml/min Primary hypertension Acute worsening of stage 4 chronic kidney disease Expected: 09/19/2023, Expires: 09/18/2024 US Retroperitoneal Complete Imaging Routine CKD (chronic kidney disease) stage 4, GFR 15-29 ml/min Primary hypertension Acute worsening of stage 4 chronic kidney disease Expected: 09/19/2023, Expires: 09/18/2024 Scheduled Procedures Name Priority Associated Diagnoses Date/Ti me EGD, UPPER GI ENDOSCOPY (WRVU 2.09) Sharma's esophagus with dysplasia 01/02/2024 7:30 AM EDT documented as of this encounter Visit Diagnoses Diagnosis Acute worsening of stage 4 chronic kidney disease- Primary CKD (chronic kidney disease) stage 4, GFR 15-29 ml/min Chronic kidney disease, Stage IV (severe) Primary hypertension Unspecified essential hypertension Sharma's esophagus with dysplasia Sharma's esophagus documented in this encounter Care Teams Boarding Machine Operator Relationship Specialty Start Date End Date Slade Tran MD [address] [place] [address] PCP - General Family Medicine 06/19/22 11/05/23 documented as of this encounter
--- OUTSIDE RECORDS SUMMARY | 2023-12-10 04:59 | XMS_ITS | Encounter Summary ---
Author Organization [facility] [place] [address] Care Team Providers Care Loan Analyst Name Role Phone Jovani Wharton DO Primary Care Provider Encounter Details Date Type Department Care Team (Late st Contact Info) Description 07/25/2021 Ancillary Procedure [place] [phone] Jovani Wharton DO [address] [place], [place] [address] Social History Tobacco Use Types Packs/Day Years [...] 7:30 AM EDT Hospital Encounter [place] [phone] Lawrence Gar MD [facility] [place]STROENTER[place] [address] 01/02/2024 7:30 AM EDT - 01/02/2024 8:30 AM EDT [place] [address] Lawrence Gar MD [facility] DR GASTROENTER[place] [address] EGD, UPPER GI ENDOSCOPY (WRVU 2.09) 11/17/2024 4:20 PM EDT Office [place] [address] Lawrence Gar MD [facility] DR GASTROENTEROLOG[place] [address] Scheduled Procedures Name Priority Associated Diagnoses Date/Ti me EGD, UPPER GI ENDOSCOPY (WRVU 2.09) Sharma's esophagus with dysplasia 01/02/2024 7:30 AM EDT documented as of this encounter Procedures Procedure Name Priority Date/Time Associated Diagnosis Comments FILM LIBRARY STORAGE ONLY DX CHEST Routine 07/25/2021 12:00 AM EST documented in this encounter Results * Film Library- Storage Only DX Chest (07/25/2021 12:00 AM EST) Narrative [facility] - 07/26/2021 8:53 AM EST This exam is auto-finalizing. It's purpose is for storage only. Jovani Wharton DO G FILM LIBRARY ORD ERABLES [place], [place] documented in this encounter Visit Diagnoses Not on filedocumented in this encounter Care Teams Loan Analyst Relationship Specialty Start Date End Date Jovani Wharton DO [address] [place] [address] [address] [place] [address] PCP - General Family Medicine 10/18/16 06/18/22 documented as of this encounter
--- OUTSIDE RECORDS SUMMARY | 2023-12-10 04:59 | XMS_ITS | Encounter Summary ---
[place] [address] Care Team Providers Care Bagger And Stock Handler Helper Name Role Phone Jovani Wharton DO Primary Care Provider Encounter Details Date Type Department Care Team (Late st Contact Info) Description 05/24/2022 Telephone [place] [phone] Patsy Quintero Social History Tobacco Use Types [...] encounter Miscellaneous Notes * Telephone Encounter - Emily Horowitz - 05/24/2022 9:35 AM EST Pt scheduled 07/31 and added to wait list * Telephone Encounter - Patsy Quintero - 05/24/2022 8:47 AM EST Inbound/Outbound: OUTBOUND Spoke to Patient/Left Message: LVM Notes: LVM for patient to schedule visit with Dr. Gar from [facility]. Return calls can be handled by: ANY GASTRO EMBALMER ASSISTANT documented in this encounter Plan of Treatment Upcoming Encounters Date Type Department Care Team (Latest Contact Info) Description 01/02/2024 7:30 AM EDT Hospital En[place] [address] Lawrence Gar MD [facility] [place] [address] 01/02/2024 7:30 AM EDT - 01/02/2024 8:30 AM EDT [place] [address] Lawrence Gar MD [facility] [place] [address] EGD, UPPER GI ENDOSCOPY (WRVU 2.09) 11/17/2024 4:20 PM EDT Office [place] [address] Lawrence Gar MD [facility] [place] [address] Scheduled Procedures Name Priority Associated Diagnoses Date/Ti me EGD, UPPER GI ENDOSCOPY (WRVU 2.09) Sharma's esophagus with dysplasia 01/02/2024 7:30 AM EDT documented as of this encounter Visit Diagnoses Not on filedocumented in this encounter Care Teams Bagger And Stock Handler Helper Relationship Specialty Start Date End Date Jovani Wharton DO [address] [place] [address] PCP - General Family Medicine 10/18/16 06/18/22 documented as of this encounter
--- OUTSIDE RECORDS SUMMARY | 2023-12-10 04:59 | XMS_ITS | Encounter Summary ---
Author Organization Formerly [facility] [place] [address] Care Team Providers Care Power Tool Repairer Name Role Phone Slade Tran MD Primary Care Provider [phone] Reason for Visit * Consultation (Routine) - Closed Specialty Diagnoses / Procedures Referred By Devaughn bobo Referred To Contact Nephrology Diagnoses Chronic kidney disease, stage IV (severe) Slade Tran MD [address] [place] [address] [place] [address] [facility] [address] [place] [phone] Referral ID Status Reason Start Date Expiration Date V isits Requested Visits Authorized [id number] Closed Consult, Test & Treat PCP Updated and/or Approved 06/19/2022 06/19/2023 3 3 Encounter Details Date Type Department Care Team (Latest Contact Info) Description 08/17/2022 10:30 AM EDT Office Visit Nephrology [place] [address] Jovani Richardson MD [facility] [place] [address] Acute worsening of stage 4 chronic kidney disease (Primary Dx); CKD (chronic kidney disease) stage 4, GFR [...] Sign Reading Time Taken Comments Blood Pressure 141/91 08/17/2022 10:22 AM EDT Pulse 84 08/17/2022 10:22 AM EDT Temperature - - Respiratory Rate - - Oxygen Saturation - - Inhaled Oxygen Concentration - - Weight 79.4 kg (175 lb) 08/17/2022 10:22 AM EDT Height 167.6 cm (5' 6) 08/17/2022 10:22 AM EDT Body Mass Index 28.25 08/17/2022 10:22 AM EDT documented in this encounter Progress Notes * Jovani Richardson MD - 08/17/2022 10:30 AM EDT Nephrology/Hypertension Clinic Follow-up Note [id number] ID: [id number] y.o.year-old male for follow up of CKD. Past Medical History: Patient Active Problem List Diagnosis Code ??? Pancreatitis K85.90 ??? Gastroesophageal reflux K21.9 ??? Diverticulitis K57.92 ??? Alcoholism F10.20 ??? HTN (hypertension) I10 ??? Chronic renal disease N18.9 ??? Anemia D64.9 ??? Gout M10.9 ??? HLD (hyperlipidemia) E78.5 ??? Lumbar spondylosis M47.816 ??? Gallstone K80.20 ??? Status post total knee replacement Z96.659 ??? Ruptured extensor tendon of hand or wrist S66.819A ??? 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 Screen for colon cancer Z12.11 ??? Gastroesophageal reflux disease K21.9 ??? Acute kidney injury superimposed on chronic kidney disease N17.9, N18.9 ??? Alcohol abuse F10.10 ??? Alcohol withdrawal syndrome F10.939 ??? Alcoholic ketoacidosis E87.29 ??? Elevated transaminase measurement R74.01 ??? Gastroesophageal reflux disease with esophagitis K21.00 ??? History of stress test Z92.89 ??? Hypokalemia E87.6 ??? Hypomagnesemia E83.42 ??? Incisional hernia, without obstruction or gangrene K43.2 ??? 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 Unintended weight loss R63.4 Outpatient Encounter Medications as of 08/17/2022 Medication Sig Dispense Refill ??? metoprolol succinate XL (Toprol-XL) 50 mg ER 24 hr tablet Take 50 mg by mouth daily. ??? vsbnpw-ypvxxkuf-vbkhdzq DR (Creon 6) 6,000-19,000 -30,000 unit Capsule, Delayed Release(E.C.) Take by mouth 3 times daily. ??? ergocalciferoL, vitamin D2, (vitamin D2) 50,000 unit capsule Take 50,000 Units by mouth once a week. ??? [DISCONTINUED] omeprazole (PriLOSEC) [address] capsule Take 40 mg by mouth daily. ??? acetaminophen (Tylenol) 325 mg tablet Take 650 mg by mouth Every 4 hours as needed. ??? [DISCONTINUED] metoproloL tartrate (Lopressor) 25 mg tablet Take 12.5 mg by mouth Twice daily. ??? [DISCONTINUED] ondansetron ODT (Zofran-ODT) 4 mg disintegrating tablet Take 4 mg by mouth Every8 hours as needed. ??? [DISCONTINUED] traZODone (Desyrel) 50 mg tablet every day at bedtime ??? omeprazole (PriLOSEC) 40 mg Capsule, Delayed [...] Take 100 mcg by mouth daily. ??? amLODIPine (NORVASC) 5 mg Tablet Take 10 mg by mouth daily. ??? calciTRIoL (Rocaltrol) 0.25 mcg capsule Take 0.25 mcg by mouth. 3 TIMES WEEKLY ??? HYDROmorphone (Dilaudid) 2 mg tablet Take 2 mg by mouth Every 8 hours as needed. ??? [DISCONTINUED] lansoprazole (Prevacid) [address] capsule Daily ??? [DISCONTINUED] [employer] Kit Sodium Bicarb 1/2 teaspoon, dissolved in water,by mouth, daily (Patient not taking: Reported on 08/17/2022) ??? [DISCONTINUED] fluorouraciL (EFUDEX) 5 % Cream Apply to the ears twice daily x 3 weeks 40 g 0 ??? allopurinol (ZYLOPRIM) 100 mg Tablet Take 100 mg by mouth daily. ??? [DISCONTINUED] meTOPROLOL succinate (TOPROL-XL) 100 mg Tablet Sustained Release 24 hr Take 100 mg by mouth daily. 0 No facility-administered encounter medications on file as of 08/17/2022. Allergies Allergen Reactions ??? Morphine Hives S: Had a hiatal hernia repair last summer that has taken him a long time to recover. He is still regaining strength and has noted his breathing is not as easy as it was previously. He was told that halfof his stomach was in his chest prior to the surgery. He is scheduled for a toe amputation next month secondary to a hammer toe. No chest pain, n/v, dysuria. He ran out of amlodipine 6 weeks ago and has not received a refill. O: Vitals: 08/17/22 1022 BP: (!) 141/91 Pulse: 84 Weight: 79.4 kg (175 lb) Height: 167.6 cm (5' 6) General: NAD CV: reg Resp: CTA Abd: nondistended Ext: Tr-1+ edema Labs: No results found for this or any previous visit (from the past 72 hour(s)). See scanned docs. PTH 138, Cr 3.02. A/P: 1. Renal: stage 4 CKD secondary to hypertension. Cr is up mildly from his baseline. He reports not drinking a lot of fluid. He denies NSAID use. BP is elevated off amlodipine. PTH is above target forstage 4 CKD. - restart amlodipine 5mg - increase calcitriol to 0.25mcg daily - no contraindications to toe surgery from a renal standpoint. Renal dose meds for GFR < 30. Avoid NSAID use. - repeat labs in 1 month (orders sent to [facility]) - if labs are stable, rtc 6 months. Will f/u sooner if Cr continues to rise CC: Slade Tran MD @PCPADD@ documented in this encounter Miscellaneous Notes * Addendum Note - Russell Clancy LPN - 08/17/2022 10:30 AM EDTAddended by: RUSSELL CLANCY on: 08/17/2022 12:10 PM Modules accepted: Orders * Addendum Note - Jovani Richardson MD - 08/17/2022 10:30 AM EDTAddended by: JOVANI RICHARDSON on: 08/20/2022 10:33 AM Modules accepted: Orders documented in this encounter Plan of Treatment Upcoming Encounters Date Type Department Care Team (Latest Contact Info) Description 01/02/2024 7:30 AM EDT Hospital Encounter [place] [address] Lawrence Gar MD [facility] [place] [address] 01/02/2024 7:30 AM EDT - 01/02/2024 8:30 AM EDT Surgery [place] [address] Lawrence Gar MD [facility] [place] [address] EGD, UPPER GI ENDOSCOPY (WRVU 2.09) 11/17/2024 4:20 PM EDT Office [place] [phone] Lawrence Gar MD [facility] [place] [address] Scheduled Procedures Name Priority Associated Diagnoses Date/Ti me EGD, UPPER GI ENDOSCOPY (WRVU 2.09) Sharma's esophagus with dysplasia 01/02/2024 7:30 AM EDT documented as of this encounter Procedures Procedure Name Priority Date/Time Associated Diagnosis Comments URINALYSIS MICROSCOPIC EXAM Routine 08/17/2022 11:30 AM EDT URINALYSIS WITH REFLEX CULTURE Routine 08/17/2022 11:30 AM EDT documented in this encounter Results * (ABNORMAL) Urinalysis without microscopic (01/21/2023 2:04 PM EDT) Glucose UA Negative Negative mg/dL [facility] Protein UA 100(A) Negative mg/dL [facility] Bilirubin UA Negative Negative mg/dL [facility] Comment: Clinical correlation required for positive Urine Bilirubin results as false positive may occur with some drugs and drug related products. If a false positive is suspected a serum total bilirubin should be considered if clinically indicated. Urobilinogen UA Normal Normal mg/dL [facility] pH UA 6.0 5.0 - 8.0 [facility] Blood UA Negative Negative mg/dL [facility] Ketones UA Negative Negative mg/dL [facility] Nitrite UA Negative Negative [facility] Leukocytes UA Negative Negative mcL [facility] Appearance UA Clear Clear [facility] Spec [place] UA 1.015 1.005 - 1.030 [facility] Color UA Yellow Yellow [facility] Urine 01/21/2023 2:04 PM EDT 01/21/2023 2:21 PM EDT Narrative Resulting Agency Comment Spec In Lab Jovani Richardson MD URINE ORDERABLES Performing Organization Address [facility] Co de Phone Number [facility] [place] [address] * (ABNORMAL) Protein/Creatinine Ratio, urine (01/21/2023 2:04 PM EDT) U Creatinine 55 mg/dL [facility] U Protein Ran 84(H) 0 - 12 mg/dL [facility] Prot/Cre Ratio 1.5 ratio [facility] Urine 01/21/2023 2:04 PM EDT 01/21/2023 2:21 PM EDT Narrative Resulting Agency Comment Spec In Lab Jovani Richardson MD URINE ORDERABLES Performing Organization Address [facility] Co de Phone Number [facility] [place] [address] * Phosphorus (01/21/2023 12:55 PM EDT) Phosphorus 3.5 2.5 - 4.5 mg/dL [facility] Blood 01/21/2023 12:5 5 PM EDT 01/21/2023 1:11 PM EDT Narrative Resulting Agency Comment Spec In Lab Jovani Richardson MD CHEMISTRY ORDERABLES Performing Organization Address [facility] Co de Phone Number [facility] [place] [address] * Albumin Level (01/21/2023 12:55 PM EDT) Albumin 4.3 3.2 - 5.2 g/dL [facility] Blood 01/21/2023 12:5 5 PM EDT 01/21/2023 1:11 PM EDT Narrative Resulting Agency Comment Spec In Lab Jovani Richardson MD CHEMISTRY ORDERABLES [facility] [place] [address] * (ABNORMAL) PTH (01/21/2023 12:55 PM EDT) PTH 126(H) 15 - 65 pg/mL [facility] Blood 01/21/2023 12:5 5 PM EDT 01/21/2023 1:11 PM EDT Narrative Resulting Agency Comment Spec In Lab Jovani Richardson MD CHEMISTRY ORDERABLES Performing Organization Address [facility]/ZIP Co de Phone Number [facility] [place] [address] * (ABNORMAL) Basic Metabolic Panel (non-fasting) (01/21/2023 12:55 PM EDT) Pathologist [facility] Glucose Lvl 93 65 - 199 mg/dL [facility] Comment:Diabetes: >=200 mg/d L plus symptoms BUN 57(H) 10 - 20 mg/dL [facility] Creatinine 2.71(H) 0.80 - 1.50 mg/dL [facility] Sodium 140 135 - 145 mmol/L [facility] Potassium 5.6(H) 3.5 - 5.0 mmol/L [facility] Comment: Please note: ??Patients with WBC >100,000 may have falsely elevated Potassium levels. ??For accurate Potassium quantification in these patients send serum separator tube (gold top) for subsequent determinations. ??Contact the Clinical Chemistry Laboratory if there are any questions. Chloride 112(H) 98 - 107 mmol/L [facility] CO2 15(L) 22 - 31 mmol/L [facility] Anion Gap 13 5 - 15 mmol/L [facility] Calcium 8.4(L) 8.5 - 10.5 mg/dL [facility] Estimated GFR 25(L) >=60 mL/min/1. 73 m?? [facility] Comment: This patient's estimated GFR [...] Richardson MD CHEMISTRY ORDERABLES Performing Organization Address [facility]ZIP Co de Phone Number [facility] [place] [address] * Urinalysis Microscopic Exam (08/17/2022 11:30 AM EDT) RBC UA 1 0 - 3 /HPF [facility] WBC UA 0 0 - 3 /HPF [facility] Urine Urine / Unknown 08/17/2022 1 1:30 AM EDT 08/17/2022 1:08 PM EDT Narrative Resulting Agency Comment Spec In Lab Jovani Richardson MD URINE ORDERABLES Performing Organization Address [facility]/ZIP Co de Phone Number [facility] [place] [address] * (ABNORMAL) Urinalysis with reflex Culture (08/17/2022 11:30 AM EDT) Glucose UA Negative Negative mg/dL [facility] Protein UA >=300(A) Negative mg/dL [facility] Bilirubin UA Negative Negative mg/dL [facility] Comment: Clinical correlation required for positive Urine Bilirubin results as false positive may occur with some drugs and drug related products. If a false positive is suspected a serum total bilirubin should be considered if clinically indicated. Urobilinogen UA Normal Normal mg/dL [facility] pH UA 6.0 5.0 - 8.0 [facility] Blood UA Negative Negative mg/dL [facility] Ketones UA Negative Negative mg/dL [facility] Nitrite UA Negative Negative [facility] Leukocytes UA Negative Negative mcL [facility] Appearance UA Clear Clear [facility] Spec [place] UA 1.014 1.005 - 1.030 [facility] Color UA Yellow Yellow [facility] Culture Reflexed No [facility] Urine Urine / Unknown 08/17/2022 1 1:30 AM EDT 08/17/2022 1:08 PM EDT Narrative Resulting Agency Comment Spec In Lab Jovani Richardson MD URINE ORDERABLES Performing Organization Address City/State/[facility] Co de Phone Number [facility] [place] [phone] documented in this encounter Visit Diagnoses Diagnosis Acute worsening of stage 4 chronic kidney disease- Primary CKD (chronic kidney disease) stage 4, GFR 15-29 ml/min Chronic kidney disease, Stage IV (severe) Primary hypertension Unspecified essential hypertension Hyperparathyroidism due to renal insufficiency Secondary hyperparathyroidism (of renal origin) Sharma's esophagus with dysplasia Sharma's esophagus documented in this encounter Care Teams Power Tool Repairer Relationship Specialty Start Date End Date Slade Tran MD [facility] [place] [address] [address] PCP - General Family Medicine 06/19/22 11/05/23 documented as of this encounter
--- OUTSIDE RECORDS SUMMARY | 2023-12-10 04:59 | XMS_ITS | Encounter Summary ---
Author Organization [facility] [place] [address] Care Team Providers Care Washateria Attendant Name Role Phone Slade Tran MD Primary Care Provider [phone] Encounter Details Date Type Department Care Team (Latest Contact Info) Description 08/30/2022 9:34 PM EDT - 08/30/2022 11:59 PM EDT Hospital [place] [address] Discharge Disposition: Home Social History Tobacco Use [...] on file documented as of this encounter Medications at Time of Discharge Medication Sig Dispensed Refills Start Date End Date metoprolol succinate XL (Toprol-XL) 50 mg ER [...] total per month 45 g 3 08/11/2020 ergocalciferoL, vitamin D2, (vitamin D2) 50,000 unit capsule Take 50,000 Units by mouth once a week. 08/31/2022 iqtlyu-uvnaoysn-xjdbzvb (Creon 6) 6,000-19,000 -30,[address] capsule Take by mouth 3 times daily. 04/09/2023 calciTRIoL (Rocaltrol) 0.25 mcg capsule Take 0.25 mcg by mouth daily. 11/06/2023 HYDROmorphone (Dilaudid) 2 mg tablet Take 2 mg by mouth Every 8 hours as needed. 10/26/2021 04/09/2023 omeprazole (PriLOSEC) 40 mg Capsule, Delayed Release(E.C.) Take 40 mg by mouth daily. 09/11/2023 amoxicillin (Amoxil) 500 mg Capsule TAKE FOUR CAPSULES BY MOUTH 1 HOUR PRIOR TO VISIT 08/30/2020 08/30/2023 lisinopriL (Prinivil;Zestril) 5 mg Tablet Take 5 mg by mouth daily. 12/08/2019 08/30/2023 cyanocobalamin, Vitamin B-12, (VITAMIN B-12) 100 mcg Tablet Take 100 mcg by mouth daily. 04/09/2023 allopurinol (ZYLOPRIM) 100 mg Tablet Take 100 mg by mouth daily. 04/09/2023 documented as of this encounter Plan of Treatment Upcoming Encounters Date Type Department Care Team (Latest Contact Info) Description 01/02/2024 7:30 AM EDT Hospital Encounter [place] [address] Lawrence Gar MD [facility] DR [place] [address] 01/02/2024 7:30 AM EDT - 01/02/2024 8:30 AM EDT Surgery [place] [address] Lawrence Gar MD [facility] DR [place] [address] EGD, UPPER GI ENDOSCOPY (WRVU 2.09) 11/17/2024 4:20 PM EDT Office Visit Gastroenterology at [place] [phone] Lawrence Gar MD [facility] [place] [address] Scheduled Procedures Name Priority Associated Diagnoses Date/Ti me EGD, UPPER GI ENDOSCOPY (WRVU 2.09) Sharma's esophagus with dysplasia 01/02/2024 7:30 AM EDT documented as of this encounter Procedures Procedure Name Priority Date/Time Associated Diagnosis Comments SURGICAL PATHOLOGY REPORT Routine 08/30/2022 9:39 AM EDT documented in this encounter Results * Surgical Pathology Report (08/30/2022 9:39 AM EDT) Surgical Pathology Report [id number] ? Location: [facility] The signing pathologist has (i) examined the relevant preparation(s) for the specimen(s) and (ii) rendered or confirmed the diagnosis(es). . ?Surgical Pathology DIAGNOSIS A - Right second (hammer)toe (gross surgical pathology examination). Electronically signed by: ?Nilo Moses MD Verified: ??09/03/2022 13:06 ??Pathologist Performed at: ??-[facility] Dept. of Pathology, [place] [address] Machine Tester: Deana Lopez MD, FCAP, ??CLIA Certificate: [id number] SPECIMEN(S) SUBMITTED A - Right second toe Referring Identifier: [id number] CLINICAL INFORMATION Right second toe deformity. SPECIMEN PROCESSING A - Labeled/Fixativ e: ?? Right second toe, formalin. 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 Lesion: Hammertoe deformity of the PIP joint. Nail: Unremarkable. Skin: Unremarkable. Sections/Proces sing: ?? No sections submitted, gross diagnosis only. ??sns [facility] 08/30/2022 9:39 AM EDT Narrative Resulting Agency Comment Spec In Lab / [facility] Karen Lopez DPM PATHOLOGY/CYTOLOGY O RDERABLES [facility] [place] [phone] documented in this encounter Visit Diagnoses Not on filedocumented in this encounter Care Teams Washateria Attendant Relationship Specialty Start Date End Date Slade Tran MD [address] [place] [address] PCP - General Family Medicine 06/19/22 11/05/23 documented as of this encounter
--- OUTSIDE RECORDS SUMMARY | 2023-12-10 04:59 | XMS_ITS | Encounter Summary ---
Author Organization Formerly [facility] [address] Care Team Providers Care Audit Senior Associate Name Role Phone Slade Tran MD Primary Care Provider [phone] Encounter Details Date Type Department Care Team (Latest Contact Info) Description 08/30/2023 9:35 AM EDT Laboratory Appointment Lab [address] [place] [phone] CKD (chronic kidney disease) stage 4, GFR [...] 7:30 AM EDT Hospital Encounter [place] [phone] Lawrence Gar MD [facility] DR [place] [address] 01/02/2024 7:30 AM EDT - 01/02/2024 8:30 AM EDT Surgery [place] [address] Lawrence Gar MD [facility] DR [place] [address] EGD, UPPER GI ENDOSCOPY (WRVU 2.09) 11/17/2024 4:20 PM EDT Office Visit [place] [address] Lawrence Gar MD [facility] DR [place] [address] Scheduled Procedures Name Priority Associated Diagnoses Date/Ti me EGD, UPPER GI ENDOSCOPY (WRVU 2.09) Sharma's esophagus with dysplasia 01/02/2024 7:30 AM EDT documented as of this encounter Procedures Procedure Name Priority Date/Time Associated Diagnosis Comments HC CREATININE - NON BLOOD Routine 08/30/2023 10:00 AM EDT CKD (chronic kidney disease) stage 4, GFR 15-29 ml/min HC PARATHYROID HORMONE(PTH INTACT Routine 08/30/2023 9:52 AM EDT CKD (chronic kidney disease) stage 4, GFR 15-29 ml/min HEMOGRAM Routine 08/30/2023 9:52 AM EDT CKD (chronic kidney disease) stage 4, GFR 15-29 ml/min DIFFERENTIAL, AUTOMATED Routine 08/30/2023 9:52 AM EDT CKD (chronic kidney disease) stage 4, GFR 15-29 ml/min HC PCH METHYLMALONIC ACID Routine 08/30/2023 9:52 AM EDT CKD (chronic kidney disease) stage 4, GFR 15-29 ml/min HC IRON BINDING CAPACITY Routine 08/30/2023 9:52 AM EDT CKD (chronic kidney disease) stage 4, GFR 15-29 ml/min HC VENIPUNCTURE Routine 08/30/2023 9:52 AM EDT CKD (chronic kidney disease) stage 4, GFR 15-29 ml/min HC CBC,PLT & AUTO DIFF Routine 9:52 AM EDT CKD (chronic kidney disease) stage 4, GFR 15-29 ml/min HC URIC ACID, SERUM Routine 08/30/2023 9 :52 AM EDT CKD (chronic kidney disease) stage 4, GFR 15-29 ml/min HC PHOSPHORUS, SERUM Routine 08/30/2023 9:52 AM EDT CKD (chronic kidney disease) stage 4, GFR 15-29 ml/min HC FOLATE, SERUM Routine 08/30/2023 9:52 AM EDT CKD (chronic kidney disease) stage 4, GFR 15-29 ml/min HC FERRITIN, SERUM Routine 08/30/2023 9: 52 AM EDT CKD (chronic kidney disease) stage 4, GFR 15-29 ml/min HC VITAMIN B12 SERUM Routine 08/30/2023 9:52 AM EDT CKD (chronic kidney disease) stage 4, GFR 15-29 ml/min HC ALBUMIN, SERUM Routine 08/30/2023 9:5 2 AM EDT CKD (chronic kidney disease) stage 4, GFR 15-29 ml/min BASIC METABOLIC PANEL (NON-FASTING) Routine 08/30/2023 9:52 AM EDT CKD (chronic kidney disease) stage 4, GFR 15-29 ml/min documented in this encounter Results * (ABNORMAL) Protein/Creatinine Ratio, urine (08/30/2023 10:00 AM EDT) U Creatinine 72 mg/dL [facility] U Protein Ran 187(H) 0 - 12 mg/dL [facility] Prot/Cre Ratio 2.6 ratio [facility] Urine 08/30/2023 10:0 0 AM EDT 08/30/2023 10:39 AM EDT Narrative Resulting Agency Comment Spec In Lab Jovani Richardson MD URINE ORDERABLES [facility] [place] [address] * Differential, Automated (08/30/2023 9:52 AM EDT) Neutrophils % 66.9 % [facility] Neutr Abs (ANC) 4.38 1.70 - 6.10 x10(3)/[facility] Lymphocytes % 13.8 % [facility] Lymphocytes Abs 0.9 0.9 - 3.2 x10(3)/[facility] Monocytes % 12.2 % [facility] Monocyte Abs 0.8 0.3 - 0.9 x10(3)/[facility] Eosinophils % 5.7 % [facility] Eosinophils Abs 0.4 0.0 - 0.4 x10(3)/[facility] Basophils % 0.9 % [facility] Basophils Abs 0.1 0.0 - 0.1 x10(3)/[facility] Immature Gran % 0.50 % [facility] Comment: Immature granulocytes(IG's)percentage and absolute count will include metamyelocytes, myelocytes, and promyelocytes. Blood smears from CBCs yielding IG's will be scanned manually for concordance. If this scan disagrees with the automated IG or if promyelocytes are noted, a manual differential will be performed. Raya Gran Abs 0.03 0.00 - 0.04 x10(3)/[facility] Blood 08/30/2023 9:52 AM EDT 08/30/2023 9:56 AM EDT Narrative Resulting Agency Comment Spec In Lab Jovani Richardson MD HEMATOLOGY ORDERABLE S [facility] [place] [address] * (ABNORMAL) Hemogram (08/30/2023 9:52 AM EDT) [facility] WBC 6.5 4.0 - 9.5 x10(3)/[facility] RBC 3.29(L) 4.58 - 5.54 x10(6)/[facility] Hemoglobin 10.2(L) 13.7 - 16.5 g/dL [facility] Hematocrit 31.3(L) 40.5 - 48.5 % [facility] MCV 95.1(H) 82.9 - 93.1 [facility] MCH 31.0 27.5 - 32.1 pg [facility] MCHC 32.6 32.0 - 35.7 g/dL [facility] Platelets 170 145 - 357 x10(3)/[facility] RDWSD 47.0(H) 36.0 - 45.0 [facility] RDWCV 13.3 11.4 - 13.8 % [facility] MPV 10.3 7.6 - 12.9 [facility] nRBC % Auto 0.0 % [facility] nRBC Abs Auto 0.000 0.000 - 0.000 x10(3)/[facility] Blood 08/30/2023 9:52 AM EDT 08/30/2023 9:56 AM EDT Narrative Resulting Agency Comment Spec In Lab Jovani Richardson MD HEMATOLOGY ORDERABLE S [facility] [place] [address] * (ABNORMAL) Basic Metabolic Panel (non-fasting) (08/30/2023 9:52 AM EDT) [facility] Glucose Lvl 61(L) 65 - 199 mg/dL [facility] Comment:Diabetes: >=200 mg/d L plus symptoms BUN 49(H) 10 - 20 mg/dL [facility] Creatinine 3.21(H) 0.80 - 1.50 mg/dL [facility] Sodium 140 135 - 145 mmol/L [facility] Potassium 5.0 3.5 - 5.0 mmol/L [facility] Comment: Please note: ??Patients with WBC >100,000 may have falsely elevated Potassium levels. ??For accurate Potassium quantification in these patients send serum separator tube (gold top) for subsequent determinations. ??Contact the Clinical Chemistry Laboratory if there are any questions. Chloride 109(H) 98 - 107 mmol/L [facility] CO2 17(L) 22 - 31 mmol/L [facility] Anion Gap 14 5 - 15 mmol/L [facility] Calcium 8.7 8.5 - 10.5 mg/dL [facility] Estimated GFR 20(L) >=60 mL/min/1. 73 m?? [facility] Comment: This patient's estimated [...] In Lab Jovani Richardson MD CHEMISTRY ORDERABLES [facility] [place] [address] * Phosphorus (08/30/2023 9:52 AM EDT) Phosphorus 3.8 2.5 - 4.5 mg/dL [facility] Blood 08/30/2023 9:52 AM EDT 08/30/2023 9:56 AM EDT Narrative Resulting Agency Comment Spec In Lab Jovani Richardson MD CHEMISTRY ORDERABLES Performing Organization Address City/[facility] Co de Phone Number [facility] [place] [address] * Albumin Level (08/30/2023 9:52 AM EDT) Albumin 4.4 3.2 - 5.2 g/dL [facility] Blood 08/30/2023 9:52 AM EDT 08/30/2023 9:56 AM EDT Narrative Resulting Agency Comment Spec In Lab Jovani Richardson MD CHEMISTRY ORDERABLES Performing Organization Address City/[facility] Co de Phone Number [facility] [place] [address] * Uric acid (08/30/2023 9:52 AM EDT) Pathologist [facility] Uric Acid 8.2 3.5 - 8.5 mg/dL [facility] Blood 08/30/2023 9:52 AM EDT 08/30/2023 9:56 AM EDT Narrative Resulting Agency Comment Spec In Lab Jovani Richardson MD CHEMISTRY ORDERABLES Performing Organization Address City/[facility] Co de Phone Number [facility] [place] [address] * (ABNORMAL) PTH (08/30/2023 9:52 AM EDT) PTH 145(H) 15 - 65 pg/mL [facility] Blood 08/30/2023 9:52 AM EDT 08/30/2023 9:56 AM EDT Narrative Resulting Agency Comment Spec In Lab Jovani Richardson MD CHEMISTRY ORDERABLES Performing Organization Address City/[facility] Co de Phone Number [facility] [place] [address] * Ferritin (08/30/2023 9:52 AM EDT) Ferritin 152 31 - 409 ng/mL [facility] Comment: Please note that as of 05/01/2023, the reference intervals for Ferritin have been updated. Blood 08/30/2023 9:52 AM EDT 08/30/2023 9:56 AM EDT Narrative Resulting Agency Comment Spec In Lab Jovani Richardson MD CHEMISTRY ORDERABLES Performing Organization Address [facility] Co de Phone Number [facility] [place] [address] * Iron and TIBC (08/30/2023 9:52 AM EDT) Iron 75 45 - 160 mcg/dL [facility] TIBC 251 250 - 450 mcg/dL [facility] Iron Saturation 30 20 - 50 % [facility] Blood 08/30/2023 9:52 AM EDT 08/30/2023 9:56 AM EDT Narrative Resulting Agency Comment Spec In Lab Jovani Richardson MD CHEMISTRY ORDERABLES Performing Organization Address City/[facility]/ZIP Co de Phone Number [facility] [place] [address] * Vitamin B12 (08/30/2023 9:52 AM EDT) Vitamin B-12 608 232 - 1,245 pg/mL [facility] Blood 08/30/2023 9:52 AM EDT 08/30/2023 9:56 AM EDT Narrative Resulting Agency Comment Spec In Lab Jovani Richardson MD CHEMISTRY ORDERABLES [facility] [place] [address] * Folate, serum (08/30/2023 9:52 AM EDT) [facility] Folate Lvl >20.0 4.8 - 24.2 ng/mL [facility] Blood 08/30/2023 9:52 AM EDT 08/30/2023 9:56 AM EDT Narrative Resulting Agency Comment Spec In Lab Jovani Richardson MD CHEMISTRY ORDERABLES Performing Organization Address [facility] Co de Phone Number [facility] [place] [address] * Methylmalonic acid, serum (08/30/2023 9:52 AM EDT) [facility] Methylmalonic Acid 0.38 <=0.40 nmol/mL [facility] Comment: ADDITIONAL INFORMATION This test was developed and its performance characteristics determined by [facility] in a manner consistent with CLIA requirements. This test has not been cleared or approved by the U.S. Food and Drug Administration. Test Performed by: [facility] - [address] [address] Service Desk Analyst: Todd Worthington M.D. Ph.D.; CLIA# [id number] Blood 08/30/2023 9:52 AM EDT 08/30/2023 3:38 PM EDT Narrative Resulting Agency Comment Spec In Lab Jovani Richardson MD CHEMISTRY ORDERABLES Performing Organization Address City/[facility] Co de Phone Number [facility] [place] [address] * Vitamin D, 25-Hydroxy (08/30/2023 9:52 AM EDT) [facility] 25-OH Vit D Total 21 21 - 100 ng/mL [facility] 25-OH Vit D Interp Insufficient [facility] Blood 08/30/2023 9:52 AM EDT 08/30/2023 9:56 AM EDT Narrative Resulting Agency Comment Spec In Lab Jovani Richardson MD CHEMISTRY ORDERABLES [facility] [place] [address] documented in this encounter Visit Diagnoses Diagnosis CKD (chronic kidney disease) stage 4, GFR 15-29 ml/min Chronic kidney disease, Stage IV (severe) Sharma's esophagus with dysplasia Sharma's esophagus documented in this encounter Care Teams Audit Senior Associate Relationship Specialty Start Date End Date Slade Tran MD [address] [place] [address] PCP - General Family Medicine 06/19/22 11/05/23 documented as of this encounter
--- OUTSIDE RECORDS SUMMARY | 2023-12-10 04:59 | XMS_ITS | Encounter Summary ---
Author Organization [facility] [place] [address] Care Team Providers Care Otolaryngology Physician Name Role Phone Slade Tran MD Primary Care Provider [phone] Encounter Details Date Type Department Care Team (Late st Contact Info) Description 03/05/2023 Telephone [place] [address] Christiana Haq Social History Tobacco Use Types Packs/Day Years [...] encounter Miscellaneous Notes * Telephone Encounter - Christiana Haq - 03/05/2023 10:01 AM EDT LM for patient to call and schedule a follow up appointment with Dr.Kaneko MORRIS in March documented in this encounter Plan of Treatment Upcoming Encounters Date Type Department Care Team (Latest Contact Info) Description 01/02/2024 7:30 AM EDT Hospital En[place] [address] Lawrence Gar MD [facility] [place] [address] 01/02/2024 7:30 AM EDT - 01/02/2024 8:30 AM EDT [place] [address] Lawrence Gar MD [facility] [place] [address] EGD, UPPER GI ENDOSCOPY (WRVU 2.09) 11/17/2024 4:20 PM EDT Office [place] [address] Lawrence Gar MD [facility] [place] [address] Scheduled Procedures Name Priority Associated Diagnoses Date/Ti me EGD, UPPER GI ENDOSCOPY (WRVU 2.09) Sharma's esophagus with dysplasia 01/02/2024 7:30 AM EDT documented as of this encounter Visit Diagnoses Not on filedocumented in this encounter Care Teams Otolaryngology Physician Relationship Specialty Start Date End Date Slade Tran MD [address] [place] [address] PCP - General Family Medicine 06/19/22 11/05/23 documented as of this encounter
--- OUTSIDE RECORDS SUMMARY | 2023-12-10 04:59 | XMS_ITS | Encounter Summary ---
Author Organization [facility] [place] [address] Care Team Providers Care Restaurant Busser Name Role Phone Slade Tran MD Primary Care Provider [phone] Encounter Details Date Type Department Care Team (Late st Contact Info) Description 09/19/2023 External Results [place] [phone] Karol Iverson RN Social History Tobacco Use [...] 7:30 AM EDT Hospital Encounter [place] [address] Lawrence Gar MD [facility] DR [place]STROENTER[place] [address] 01/02/2024 7:30 AM EDT - 01/02/2024 8:30 AM EDT [place] [phone] Lawrence Gar MD [facility] DR [place]STROENTER[place] [address] EGD, UPPER GI ENDOSCOPY (WRVU 2.09) 11/17/2024 4:20 PM EDT Office [place] [address] Lawrence Gar MD [facility] DR [place]STRO[place] [address] Scheduled Procedures Name Priority Associated Diagnoses Date/Ti me EGD, UPPER GI ENDOSCOPY (WRVU 2.09) Sharma's esophagus with dysplasia 01/02/2024 7:30 AM EDT documented as of this encounter Procedures Procedure Name Priority Date/Time Associated Diagnosis Comments BASIC METABOLIC PANEL (NON-FASTING) Routine 09/18/2023 documented in this encounter Results * Basic Metabolic Panel (non-fasting) (09/18/2023) Glucose Lvl 79 BUN 58 Creatinine 3.9 Estimated GFR 15.9 Sodium 141 Potassium 4.9 Chloride 110 CO2 14 Calcium 8.5 Blood 09/18/2023 Historical Provider CHEMISTRY ORDERAB LES documented in this encounter Visit Diagnoses Not on filedocumented in this encounter Care Teams Restaurant Busser Relationship Specialty Start Date End Date Slade Tran MD [facility] [place] [address] PCP - General Family Medicine 06/19/22 11/05/23 documented as of this encounter
--- OUTSIDE RECORDS SUMMARY | 2023-12-10 04:59 | XMS_ITS | Encounter Summary ---
[place] [address] Care Team Providers Care Batch Unloader Name Role Phone Slade Tran MD Primary Care Provider [phone] Encounter Details Date Type Department Care Team (Late st Contact Info) Description 09/26/2023 Telephone Neph[place] [phone] Karol Iverson RN Social History Tobacco Use [...] Telephone Encounter - Karol Iverson RN - 09/26/2023 9:27 AM EDT S/O: Call from Mathew to review labs and renal ultrasound results. Mathew reports that after our last conversation, he had started taking 1 tsp baking soda in water daily. This had been recommended priorto him starting with Dr Richardson but he had never started it. He reports fairly significant improvement in his abdominal and muscle discomfort since starting the bicarbonate. He reports he still has about 1-2 episodes daily of loose stool. Each BM takes about 30 minutes as they are extensive. Mathew does have an EGD and colonoscopy coming up. P: Above sent to Dr Richardson for review and recommendation. Recommended that Mathew begin to keep a food and stool diary so that GI can better see if there are any connections between the food he eats and these episodes. Scheduled Mathew for clinic visit November 05 documented in this encounter Plan of Treatment Upcoming Encounters Date Type Department Care Team (Latest Contact Info) Description 01/02/2024 7:30 AM EDT Hospital Encounter Gastroenterology at [place] [phone] Lawrence Gar MD [facility] [place] [address] 01/02/2024 7:30 AM EDT - 01/02/2024 8:30 AM EDT Surgery [place] [address] Lawrence Gar MD [facility] [place] [address] EGD, UPPER GI ENDOSCOPY (WRVU 2.09) 11/17/2024 4:20 PM EDT Office [place] [address] Lawrence Gar MD [facility] [place] [address] Scheduled Procedures Name Priority Associated Diagnoses Date/Ti me EGD, UPPER GI ENDOSCOPY (WRVU 2.09) Sharma's esophagus with dysplasia 01/02/2024 7:30 AM EDT documented as of this encounter Visit Diagnoses Not on filedocumented in this encounter Care Teams Batch Unloader Relationship Specialty Start Date End Date Slade Tran MD [facility] [place] [phone] PCP - General Family Medicine 06/19/22 11/05/23 documented as of this encounter
--- OUTSIDE RECORDS SUMMARY | 2023-12-10 04:59 | XMS_ITS | Encounter Summary ---
Author Organization [facility] [place] [address] Care Team Providers Care Research Electrician Name Role Phone Slade Tran MD Primary Care Provider [phone] Encounter Details Date Type Department Care Team (Latest Contact Info) Description 08/21/2023 Travel Social History Tobacco Use Types Packs/Day [...] 7:30 AM EDT Hospital Encounter [place] [address] Lawrence Gar MD [facility] [place] [address] 01/02/2024 7:30 AM EDT - 01/02/2024 8:30 AM EDT [place] [address] Lawrence Gar MD [facility] [place] [address] EGD, UPPER GI ENDOSCOPY (WRVU 2.09) 11/17/2024 4:20 PM EDT Office [place] [address] Lawrence Gar MD [facility] [place] [address] Scheduled Procedures Name Priority Associated Diagnoses Date/Ti me EGD, UPPER GI ENDOSCOPY (WRVU 2.09) Sharma's esophagus with dysplasia 01/02/2024 7:30 AM EDT documented as of this encounter Visit Diagnoses Not on filedocumented in this encounter Care Teams Research Electrician Relationship Specialty Start Date End Date Slade Tran MD [address] [place] [address] PCP - General Family Medicine 06/19/22 11/05/23 documented as of this encounter
--- OUTSIDE RECORDS SUMMARY | 2023-12-10 04:59 | XMS_ITS | Encounter Summary ---
[place] [address] Care Team Providers Care Certified Orthotist Practice Manager Name Role Phone Slade Tran MD Primary Care Provider Encounter Details Date Type Department Care Team (Late st Contact Info) Description 07/13/2022 Telephone [place] [phone] Patsy Quintero Social History Tobacco Use Types [...] * Telephone Encounter - Patsy Quintero - 07/13/2022 1:44 PM EST Rescheduled appointment to Dr. Cong vargas available. Sent [facility] message to patient * Telephone Encounter - Patsy Quintero - 07/13/2022 1:34 PM EST Inbound/Outbound: OUTBOUND Spoke to Patient/Left Message: [facility] Notes: LVM for patient to call to reschedule his appointment cancelled by [facility] and per message sentfrom nursing that patient cannot get through to secretaries. Return calls can be handled by: Any Gastro Roping Tender documented in this encounter Plan of Treatment Upcoming Encounters Date Type Department Care Team (Latest Contact Info) Description 01/02/2024 7:30 AM EDT Hospital Encounter Gastroenterology at [place] [phone] Lawrence Gar MD [facility] [place] [address] 01/02/2024 7:30 AM EDT - 01/02/2024 8:30 AM EDT Surgery [place] [address] Lawrence Gar MD [facility] [place] [address] EGD, UPPER GI ENDOSCOPY (WRVU 2.09) 11/17/2024 4:20 PM EDT Office Visit Gastroenterology at [place] [phone] Lawrence Gar MD [facility] [place] [address] Scheduled Procedures Name Priority Associated Diagnoses Date/Ti va EGD, UPPER GI ENDOSCOPY (WRVU 2.09) Sharma's esophagus with dysplasia 01/02/2024 7:30 AM EDT documented as of this encounter Visit Diagnoses Not on filedocumented in this encounter Care Teams Certified Orthotist Practice Manager Relationship Specialty Start Date End Date Slade Tran MD [address] [place] [address] PCP - General Family Medicine 06/19/22 11/05/23 documented as of this encounter
--- OUTSIDE RECORDS SUMMARY | 2023-12-10 05:00 | XMS_ITS | Encounter Summary ---
Author Organization [facility] [place] [address] Care Team Providers Care Flight Line Mechanic Name Role Phone Dio Jovani MCCAIN Primary Care Provider Encounter Details Date Type Department Care Team (Latest Contact Info) Description 06/27/2021 2:00 PM EST Office Visit Ne[place] [address] Mekhi Hernandez [facility] [address] CKD (chronic kidney disease) stage 4, GFR 15-29 ml/min; Hypertension, unspecified type Social History Tobacco Use Types Packs/Day Years [...] Sign Reading Time Taken Comments Blood Pressure 127/78 06/27/2021 1:41 PM EST Pulse 73 06/27/2021 1:41 PM EST Temperature - - Respiratory Rate - - Oxygen Saturation - - Inhaled Oxygen Concentration - - Weight 74.4 kg (164 lb) 06/27/2021 1:41 PM EST Height 167.6 cm (5' 6) 06/27/2021 1:41 PM EST Body Mass Index 26.47 06/27/2021 1:41 PM EST documented in this encounter Progress Notes * Mekhi Hernandez, SEARCH STRATEGIST - 06/27/2021 2:00 PM EST Nephrology/Hypertension Clinic Follow-up Note [id number] ID: [id number] y.o.year-old male for follow up of CKD Stage 4 with history of HTN. Past Medical History: Patient Active Problem List [...] cancer Z12.11 ??? Gastroesophageal reflux disease K21.9 Outpatient Encounter Medications as of 06/27/2021 Medication Sig Dispense Refill ??? omeprazole (PriLOSEC) 40 mg Capsule, Delayed [...] total per month 45 g 3 ??? fluorouraciL (EFUDEX) 5 % Cream Apply to the ears twice daily x 3 weeks 40 g 0 ??? [DISCONTINUED] magnesium 250 mg Tablet Take by mouth daily. ??? lisinopriL (Prinivil;Zestril) 5 mg Tablet TK 1 T PO D ??? cyanocobalamin, Vitamin B-12, (VITAMIN B-12) 100 mcg Tablet Take 100 mcg by mouth daily. ??? allopurinol (ZYLOPRIM) 100 mg Tablet Take 100 mg by mouth daily. ??? amLODIPine (NORVASC) 5 mg Tablet Take 10 mg by mouth daily. ??? meTOPROLOL succinate (TOPROL-XL) 100 mg Tablet Sustained Release 24 hr Take 100 mg by mouth daily. 0 ??? [DISCONTINUED] omeprazole (PriLOSEC) 20 mg Capsule, Delayed Release(E.C.) Take by mouth. ??? [DISCONTINUED] naltrexone (Depade) 50 mg Tablet TAKE 1 TABLET BY MOUTH DAILY ??? [DISCONTINUED] cephALEXin (Keflex) 500 mg Capsule Begin taking evening prior to flap takedown. Take one capsule PO BID x 7 days. (Patient not taking: Reported on 08/09/2020) 14 capsule 0 ??? [DISCONTINUED] cephALEXin (KEFLEX) 500 mg Tablet One tablet by mouth twice daily for 7 days (Patient not taking: Reported on 07/04/2020) 14 tablet 0 No facility-administered encounter medications on file as of 06/27/2021. Allergies Allergen Reactions ??? Morphine Hives S: He was last seen in nephrology on 04/20/2020. Stopped drinking, relapsed, then stopped drinking again. No hospitalizations, surgeries, or new diagnoses. No headaches, lightheadedness, dizziness. C/o stomach gas. No nausea or vomiting. Appetite very good. No diarrhea or constipation. No changes in urination. Up every few hours during the night. Ableto empty bladder. No burning or pain with urination. No hematuria. No unusual bleeding or bruising.No unexplained changes in wt. No rashes or nonhealing wounds. Edema at the end of the work day. 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 Uses NSAIDs very sparingly. Mostly uses Tylenol. O: BP 127/78 Pulse 73 Ht 167.6 cm (5' 6) Wt 74.4 kg (164 lb) BMI 26.47 kg/m?? General: ??Alert, comfortable.??Cooperative with exam. HEENT - Sclera white. Mucous membranes moist.??No lymphadenopathy. CV: ??S1 and S2, no murmur, gallop or rub.??HR irregular.??JVP not elevated. Resp: ??Lungs clear. ??Respirations non labored. Abd: ??Soft. ??+ BS. ??No bruit. ??Non tender. : No CVA tenderness. Ext: ??Warm. ??No cyanosis. ??No edema. Skin: ??No rash. Neuro: Intact. No asterixis. Psych: ??Mood appropriate. Labs: Recent Results (from the past 72 hour(s)) Urinalysis without microscopic Result Value Ref Range Glucose UA Negative Negative mg/dL Protein UA 100 (A) Negative mg/dL Bilirubin UA Negative Negative mg/dL Urobilinogen UA Normal Normal mg/dL pH UA 5.5 5.0 - 8.0 Blood UA Negative Negative mg/dL Ketones UA Trace (A) Negative mg/dL Nitrite UA Negative Negative Leukocytes UA Negative Negative mcL Appearance UA Clear Clear Spec Monroe UA 1.018 1.005 - 1.030 Color UA Yellow Yellow PTH Result Value Ref Range PTH 98 (H) 15 - 65 pg/mL Phosphorus Result Value Ref Range Phosphorus 3.0 2.5 - 4.5 mg/dL Albumin Level Result Value Ref Range Albumin 4.5 3.2 - 5.2 g/dL Basic Metabolic Panel (non-fasting) Result Value Ref Range Glucose Lvl 101 65 - 199 mg/dL BUN 43 (H) 10 - 20 mg/dL Creatinine 2.62 (H) 0.80 - 1.50 mg/dL Sodium 139 135 - 145 mmol/L Potassium 4.4 3.5 - 5.0 mmol/L Chloride 109 (H) 98 - 107 mmol/L CO2 17 (L) 22 - 31 mmol/L Anion Gap 13 5 - 15 mmol/L Calcium 9.2 8.5 - 10.5 mg/dL Estimated GFR 24 (L) >=60 mL/min/1.73 m?? Hemogram Result Value Ref Range WBC 6.6 4.0 - 9.5 x10(3)/mcL RBC 3.38 (L) 4.58 - 5.54 x10(6)/mcL Hemoglobin 10.6 (L) 13.7 - 16.5 g/dL Hematocrit 31.6 (L) 40.5 - 48.5 % MCV 93.5 (H) 82.9 - 93.1 fL MCH 31.4 27.5 - 32.1 pg MCHC 33.5 32.0 - 35.7 g/dL Platelets 254 145 - 357 x10(3)/mcL RDWSD 47.0 (H) 36.0 - 45.0 fL RDWCV 13.7 11.4 - 13.8 % MPV 10.6 7.6 - 12.9 fL nRBC % Auto 0.0 % nRBC Abs Auto 0.000 0.000 - 0.000 x10(3)/mcL Differential, Automated Result Value Ref Range Neutrophils % 67.1 % Neutr Abs (ANC) 4.41 1.70 - 6.10 x10(3)/mcL Lymphocytes % 15.1 % Lymphocytes Abs 1.0 0.9 - 3.2 x10(3)/mcL Monocytes % 10.5 % Monocyte Abs 0.7 0.3 - 0.9 x10(3)/mcL Eosinophils % 6.1 % Eosinophils Abs 0.4 0.0 - 0.4 x10(3)/mcL Basophils % 0.9 % Basophils Abs 0.1 0.0 - 0.1 x10(3)/mcL Immature Gran % 0.30 % Raya Gran Abs 0.02 0.00 - 0.04 x10(3)/mcL A/P: CKD - Stable Stage 4 with eGFR of 24. Largely unchanged over the last 2 years. No anemia related toCKD with Hgb 10.6, goal: 9.5-10.9??g/dl. PTH in goal for Stage 4 CKD, goal 70-110. Metabolic acidosis noted with a CO2 of 17, he will start taking 1/2 tsp of Na bicarbonate at home. will recommend. 1+ proteinuria, continue Lisinopril. Risk factors for worsening renal function discussed. 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 Will check Vit D and recheck BMP in 1 month at his local lab. HTN - BP well controlled on current medications. >the total time spent [id number] AND total time the provider spent counseling was 45 minutes. Follow up in 6 months CC: Jovani Wharton DO @PCPADD@ documented in this encounter Miscellaneous Notes * Addendum Note - Mekhi Hernandez APRN - 06/27/2021 2:00 PM ESTAddended by: MEKHI HERNANDEZ on: 07/19/2021 11:54 AM Modules accepted: Orders documented in this encounter Plan of Treatment Upcoming Encounters Date Type Department Care Team (Latest Contact Info) Description 01/02/2024 7:30 AM EDT Hospital En[place] [address] Lawrence Gar MD [facility] DR [place]STROENTER[place] [address] 01/02/2024 7:30 AM EDT - 01/02/2024 8:30 AM EDT [place] [address] Lawrence Gar MD [facility] DR GASTROENTER[place] [address] EGD, UPPER GI ENDOSCOPY (WRVU 2.09) 11/17/2024 4:20 PM EDT Office [place] [address] Lawrence Gar MD [facility] DR [place]STROENTER[place] [address] Scheduled Procedures Name Priority Associated Diagnoses Date/Ti me EGD, UPPER GI ENDOSCOPY (WRVU 2.09) Sharma's esophagus with dysplasia 01/02/2024 7:30 AM EDT documented as of this encounter Results * (ABNORMAL) PTH (06/27/2021 1:21 PM EST) PTH 98(H) 15 - 65 pg/mL [facility] Blood 06/27/2021 1:21 PM EST 06/27/2021 1:27 PM EST Narrative Resulting Agency Comment Spec In Lab Mekhi Hernandez APRN CHEMISTRY ORDERAB LES [facility] [place] [address] * Phosphorus (06/27/2021 1:21 PM EST) Phosphorus 3.0 2.5 - 4.5 mg/dL [facility] Blood 06/27/2021 1:21 PM EST 06/27/2021 1:28 PM EST Narrative Resulting Agency Comment Spec In Lab Mekhi Hernandez SEARCH STRATEGIST CHEMISTRY ORDERAB LES Performing Organization Address City/[facility]/ZIP Co de Phone Number [facility] [place] [address] * Albumin Level (06/27/2021 1:21 PM EST) Albumin 4.5 3.2 - 5.2 g/dL [facility] Blood 06/27/2021 1:21 PM EST 06/27/2021 1:28 PM EST Narrative Resulting Agency Comment Spec In Lab Mekhinito Hernandez SEARCH STRATEGIST CHEMISTRY ORDERAB LES Performing Organization Address [facility]/[place] Co de Phone Number [facility] [place] [address] * (ABNORMAL) Basic Metabolic Panel (non-fasting) (06/27/2021 1:21 PM EST) Glucose Lvl 101 65 - 199 mg/dL [facility] Comment:Diabetes: >=200 mg/d L plus symptoms BUN 43(H) 10 - 20 mg/dL [facility] Creatinine 2.62(H) 0.80 - 1.50 mg/dL [facility] Sodium 139 135 - 145 mmol/L [facility] Potassium 4.4 3.5 - 5.0 mmol/L [facility] Comment: Please note: ??Patients with WBC >100,000 may have falsely elevated Potassium levels. ??For accurate Potassium quantification in these patients send serum separator tube (gold top) for subsequent determinations. ??Contact the Clinical Chemistry Laboratory if there are any questions. Chloride 109(H) 98 - 107 mmol/L [facility] CO2 17(L) 22 - 31 mmol/L [facility] Anion Gap 13 5 - 15 mmol/L [facility] Calcium 9.2 8.5 - 10.5 mg/dL [facility] Estimated GFR 24(L) >=60 mL/min/1. 73 m?? [facility] Comment: This patient? s estimated glomerular filtration rate (eGFR) is between 24 mL/min/1.73 m2 (patients with less muscle mass per kg body weight) and 28 mL/min/1.73 m2 (patients with more muscle mass per kg body weight) as determined by the CKD-EPI equation. Assessment of eGFR is not appropriate when creatinine concentrations are rapidly changing. For clinical decisions where creatinine clearance will affect therapy, a 24-hour urine creatinine clearance may be advised. Assignment of CKD stage 1 - 5 for patients with an eGFR near the transition point between stages may be based on clinical assessment of muscle mass and symptoms in addition to eGFR. Blood 06/27/2021 1:21 PM EST 06/27/2021 1:28 PM EST Narrative Resulting Agency Comment Spec In Lab Mekhi Hernandez SEARCH STRATEGIST CHEMISTRY ORDERAB LES [facility] [place] [address] * (ABNORMAL) Urinalysis without microscopic (06/27/2021 1:19 PM EST) Glucose UA Negative Negative mg/dL [facility] Protein UA 100(A) Negative mg/dL [facility] Bilirubin UA Negative Negative mg/dL [facility] Comment: Clinical correlation required for positive Urine Bilirubin results as false positive may occur with some drugs and drug related products. If a false positive is suspected a serum total bilirubin should be considered if clinically indicated. Urobilinogen UA Normal Normal mg/dL [facility] pH UA 5.5 5.0 - 8.0 [facility] Blood UA Negative Negative mg/dL [facility] Ketones UA Trace(A) Negative mg/dL [facility] Nitrite UA Negative Negative [facility] Leukocytes UA Negative Negative mcL [facility] Appearance UA Clear Clear [facility] Spec Monroe UA 1.018 1.005 - 1.030 [facility] Color UA Yellow Yellow [facility] Urine 06/27/2021 1:19 PM EST 06/27/2021 1:30 PM EST Narrative Resulting Agency Comment Spec In Lab Mekhi Hernandez KAVITA URINE ORDERABLES Performing Organization Address City/[facility]/[place] Co de Phone Number [facility] [place] [address] * (ABNORMAL) Protein/Creatinine Ratio, urine (06/27/2021 1:19 PM EST) U Creatinine 147 mg/dL [facility] U Protein Ran 107(H) 0 - 12 mg/dL [facility] Prot/Cre Ratio 0.7 ratio [facility] Urine 06/27/2021 1:19 PM EST 06/27/2021 1:30 PM EST Narrative Resulting Agency Comment Spec In Lab Mekhi Hernandez KAVITA URINE ORDERABLES Performing Organization Address City/[facility]/ZIP Co de Phone Number [facility] [place] [address] documented in this encounter Visit Diagnoses Diagnosis CKD (chronic kidney disease) stage 4, GFR 15-29 ml/min Chronic kidney disease, Stage IV (severe) Hypertension, unspecified type Sharma's esophagus with dysplasia Sharma's esophagus documented in this encounter Care Teams Flight Line Mechanic Relationship Specialty Start Date End Date Jovani Wharton DO [address] [place] [address] PCP - General Family Medicine 5/25/17 1/23/23 documented as of this encounter
--- OUTSIDE RECORDS SUMMARY | 2023-12-10 05:00 | XMS_ITS | Encounter Summary ---
Author Organization [facility] Address [facility] [place] [address] Care Team Providers Care Land Title Examiner Name Role Phone Jovani Wharton DO Primary Care Provider [phone] Reason for Visit * Consultation (Routine) - Closed Specialty Diagnoses / Procedures Referred By Devaughn bobo Referred To Contact Nephrology Diagnoses Chronic kidney disease stage 3 [id number] ml/min Jovani Wharton DO [address] [place] [address] Jorge Gonzales MD [facility] [place] [address] Referral ID Status Reason Start Date Expiration Date V isits Requested Visits Authorized [id number] Closed Consult, Test & Treat Connection [facility] 06/12/2017 06/12/2018 1 1 Encounter Details Date Type Department Care Team (Latest Contact Info) Description 07/10/2017 11:00 AM EST Office Visit Ne[place] [address] Jorge Gonzales MD [facility] [place] [address] Anemia of chronic renal failure, stage 3 (moderate) Social History Tobacco Use Types Packs/Day Years Used Date Smoking Tobacco: Never Smokeless Tobacco: Never Sex and Gender Information Value Date Recorded Sex Assigned at Not on file Gender Identity Not on file Sexual Orientation Not on file documented as of this encounter Last Filed Vital Signs Vital Sign Reading Time Taken Comments Blood Pressure 138/72 07/10/2017 9:39 AM EST Pulse 56 07/10/2017 9:39 AM EST Temperature - - Respiratory Rate - - Oxygen Saturation - - Inhaled Oxygen Concentration - - Weight 70.3 kg (155 lb) 07/10/2017 9:39 AM EST Height 167.6 cm (5' 6) 07/10/2017 9:39 AM EST Body Mass Index 25.02 07/10/2017 9:39 AM EST documented in this encounter Progress Notes * Jorge Gonzales MD - 07/10/2017 11:00 AM EST The patient returns for follow-up of his chronic kidney disease. On his previous visit he was taking a fair amount of nonsteroidal and inflammatory's. He did stop this for a while but now is taking Motrin 200 daily to every other day. Otherwise he has been fairly well and has no specific complaintstoday. He was also not able to stop his Prevacid and we rediscussed this. Physical exam:BP 138/72 Pulse 56 Ht 167.6 cm (5' 6) Wt 70.3 kg (155 lb) BMI 25.02 kg/m2 Skin unremarkable, HEENT normal, lungs clear, cardiac exam normal, abdomen normal, extremities without edema. Recent Results (from the past 24 hour(s)) Protein/Creatinine Ratio, urine Result Value Ref Range U Creatinine 71 mg/dL U Protein Ran 139 (H) 0 - 12 mg/dL Prot/Cre Ratio 2.0 ratio Basic Metabolic Panel (non-fasting) Result Value Ref Range Glucose Lvl 98 65 - 199 mg/dL BUN 32 (H) 10 - 20 mg/dL Creatinine 1.48 0.80 - 1.50 mg/dL Sodium 140 135 - 145 mmol/L Potassium 4.3 3.5 - 5.0 mmol/L Chloride 102 98 - 107 mmol/L CO2 23 22 - 31 mmol/L Anion Gap 15 5 - 15 mmol/L Calcium 8.9 8.5 - 10.5 mg/dL Estimated GFR 48 (L) >=60 Assessment and plan: We reviewed his labs from his primary care doctor's office. While the creatinine has waxed and waned the calculated EGFR appears to vary quite a bit. I think part of this is justthe intermittent use of nonsteroidal anti-inflammatories. In general the trend does not appear to be worsening he does have a modest amount of proteinuria and we did send SPEP and UPEP last year thatwere negative. I am still not enthusiastic about a renal biopsy unless there is no evidence of progression. Perhaps he could get a referral to the spine clinic to see if there is anything that can bedone for his back pain so that he can avoid nonsteroidal use. I will plan on seeing him back in 6 months to review the progression. I agree with holding the hydrochlorothiazide for now. He will also try to use Zantac and see if he can wean himself off the Prevacid. documented in this encounter Plan of Treatment Upcoming Encounters Date Type Department Care Team (Latest Contact Info) Description 01/02/2024 7:30 AM EDT Hospital Encounter [place] [address] Lawrence Gar MD [facility] DR GASTROENTER[place] [address] 01/02/2024 7:30 AM EDT - 01/02/2024 8:30 AM EDT Surgery [place] [address] Lawrence Gar MD [facility] DR GASTROENTER[place] [address] EGD, UPPER GI ENDOSCOPY (WRVU 2.09) 11/17/2024 4:20 PM EDT Office [place] [address] Lawrence Gar MD [facility] DR GASTROENTER[place] [address] Scheduled Procedures Name Priority Associated Diagnoses Date/Ti ny EGD, UPPER GI ENDOSCOPY (WRVU 2.09) Sharma's esophagus with dysplasia 01/02/2024 7:30 AM EDT documented as of this encounter Procedures Procedure Name Priority Date/Time Associated Diagnosis Comments BASIC METABOLIC PANEL (NON-FASTING) STAT 07/10/2017 11:53 AM EST Anemia of chronic renal failure, stage 3 (moderate) PROTEIN/CREATININE RATIO, URINE Routine 07/10/2017 10:30 AM EST Anemia of chronic renal failure, stage 3 (moderate) documented in this encounter Results * (ABNORMAL) Basic Metabolic Panel (non-fasting) (07/10/2017 11:53 AM EST) Glucose Lvl 98 65 - 199 mg/dL [facility] Comment:Diabetes: >=200 mg/d L plus symptoms BUN 32(H) 10 - 20 mg/dL [facility] Creatinine 1.48 0.80 - 1.50 mg/dL [facility] Sodium 140 135 - 145 mmol/L [facility] Potassium 4.3 3.5 - 5.0 mmol/L [facility] Comment: Please note: ??Patients with WBC >100,000 may have falsely elevated Potassium levels. ??For accurate Potassium quantification in these patients send serum separator tube (gold top) for subsequent determinations. ??Contact the Clinical Chemistry Laboratory if there are any questions. Chloride 102 98 - 107 mmol/L [facility] CO2 23 22 - 31 mmol/L [facility] Anion Gap 15 5 - 15 mmol/L [facility] Calcium 8.9 8.5 - 10.5 mg/dL [facility] Estimated GFR 48(L) >=60 [facility] Comment: The reported eGFR should be multiplied by 1.2 for patients. The MDRD is not an appropriate measure of renal function for patients with body mass extremes or in patients with acute kidney failure. http://[email or web address]/DHnkdep [email or web address]://Knowledge[employer].JourneyPure/DHMCnkf Blood specimen (specimen) 07/10/2017 11:53 AM EST 07/10/2017 11:59 AM EST Narrative Resulting Agency Comment Spec In Lab Jorge Gonzales MD CHEMISTRY ORDERABLE S Performing Organization Address City/[facility]/ZIP Co de Phone Number [facility] [place] [address] * (ABNORMAL) Protein/Creatinine Ratio, urine (07/10/2017 10:30 AM EST) U Creatinine 71 mg/dL [facility] U Protein Ran 139(H) 0 - 12 mg/dL [facility] Prot/Cre Ratio 2.0 ratio [facility] Urine specimen (specimen) 07/10/2017 10:30 AM EST 07/10/2017 1:12 PM EST Narrative Resulting Agency Comment Spec In Lab Jorge Gonzales MD URINE ORDERABLES Performing Organization Address [facility] Co de Phone Number [facility] [place] [address] documented in this encounter Visit Diagnoses Diagnosis Anemia of chronic renal failure, stage 3 (moderate) Sharma's esophagus with dysplasia Sharma's esophagus documented in this encounter Care Teams Land Title Examiner Relationship Specialty Start Date End Date Jovani Wharton DO [address] [place] [address] PCP - General Family Medicine 10/18/16 06/18/22 documented as of this encounter
--- OUTSIDE RECORDS SUMMARY | 2023-12-10 05:00 | XMS_ITS | Encounter Summary ---
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 Social History Tobacco Use Types Packs/Day Years Used Date Smoking Tobacco: Never Smokeless Tobacco: Never Sex and Gender Information Value Date Recorded Sex Assigned at Not on file Gender Identity Not on file Sexual Orientation Not on file documented as of this encounter Last Filed Vital Signs Vital Sign Reading Time Taken Comments Blood Pressure 141/89 07/06/2019 8:16 AM EST Pulse 80 07/06/2019 8:16 AM EST Temperature - - Respiratory Rate - - Oxygen Saturation - - Inhaled Oxygen Concentration - - Weight - - Height - - Body Mass Index - - documented in this encounter Patient Instructions * Patient Instructions* Patsy Chapman RN - 07/06/2019 8:00 AM EST Your staff surgeon today was Dominguez Laughlin MD, PhD. Your wound(s) was repaired by [id number] stitches called a primary repair. You do not need to come back for suture removal because only absorbably sutures were used today. If the absorbable sutures bother your skin or do not absorb after 2 weeks, you may call us to remove them for you. Instructions are as below. Please keep this as a reference: Wound Care For wounds closed with absorbable-only stitches: ??? Gently remove your initial bandage (after 48 hours from surgery) and begin wound care as below. ??? If your initial bandage only lasts 24 hours (for example, falls off sooner), this is okay. Resume your wound care and bandaging instructions as below. ??? Change your bandage once a day (and whenever it becomes wet or soaks through). DO WOUND CARE FOR ONE WEEK. ??? For bandage changes: o Wash hands with soap and water, or use gloves that you can purchase a local pharmacy or drug store. o Clean the surgical area with cotton-tipped swabs or gauze dipped in soapy water (recommend liquidsoap in clean room temperature water). Do not scrub the area or put direct shower water pressure onto your wound. It is okay to allow soapy water to run over your wound in the shower. o If you cannot remove crusted areas, you may soak with wet gauze first for 15 to 20 minutes to help soften it o Pat the area dry with clean gauze or cotton swabs. Do not rub. o Use a cotton swab to apply a generous layer of petroleum jelly over the incision lines and any open-wound areas. o Cover with clean nonstick gauze or other nonstick dressing, such as Telfa. This may be purchased over the counter at a drug store. Secure with paper tape or bandage. Band-aids are okay, but typically have more adhesive that can irritate the skin compared to paper tape. o Continue wound care daily until stitches are removed. o Discontinue wound care after 7 days. o Allow the absorbable stitches to heal. If the top stitches that are absorbable are irritating your skin, you may call us to have them removed. Otherwise, they will be absorbed naturally in approximately 2 weeks. It may absorb as quickly as 4 days. After Surgery 1. Avoid tobacco, smoking/vapors, cigars, and cannabis (marijuana) for at least 3 weeks after your surgery. These prevent proper healing and lead to worse scarring. Cutting back on tobacco is helpfulif you cannot abstain completely. 2. Do not drink alcohol for roughly 3 days as this can slow healing or cause bleeding. 3. Do not participate in athletic activities for 1 week, unless you were told a different timeline during your visit. Athletic activity is a relative term, but this is considered to be anything that could potentially raise your heartrate or blood pressure. Elevating your heart rate and blood pressure increases the risk of swelling, bleeding, wound opening, and it could lead to worse scarring. Walk ing at a leisurely pace is fine for most people, but not if you are walking for the purpose of exercise. When in doubt, take it easy or call us. 4. Do not lift anything heavier than 10 pounds until your sutures are removed. 5. Some gas leak inspector helper may need to be delayed or delegated such as vacuuming, mowing the lawn, snow shoveling, or caring for young children that need to be carried/lifted. Working any major muscle groups increases your heart rate and can increasing bleeding. 6. Avoid swimming, hot tubs, and direct water pressure for 3 weeks after surgery. You may shower, however, once your initial bandage comes off in 48 hours. 7. Avoid antibiotic ointments such as triple antibiotic creams. Stick with your wound care instructions, please. 8. Whenever possible, it is helpful to take photographs with your camera or cell phone of any problems or concerns you see with your wound. We often ask for photos when you call with questions. 9. Starting 2 months following surgery, you can begin firm massage to any areas of firm scar along your incision to soften the scar and reduce bumpiness. Do this 3 times per day, 3 minutes each time.Do not start massage before 2 months. 10. Your wound will appear almost completely healed soon after sutures are removed (about 1 week), but incisions can remain bright red for several weeks. Then the scarring and healing process continues under the skin for 6 months until to 2 years. The scar may become less red, less firm, and more subtle during this time; please note that the rate of improvement varies depending on the person. Most redness, discoloration, bumpiness resolves by 6 months, and most patients will look presentable within a few weeks after surgery. 11. Keep your follow-up appointments and make sure to continue to have your skin checked, as often as is recommended by your cso, for new skin cancers. This is once per year for most patients. 12. Your can expect your scar to be red for several weeks with gradual fading of the redness. Your scar will also be raised and lumpy until the dissolvable sutures under the skin get absorbed by yourbody which can take 3-4 months. The scar will flatten eventually. a. If you have a skin condition called rosacea, the redness can last long-term, or you can get an increased appearance of red vessels to the skin. The appearance of vessels slightly improves, but tends to respond well to laser treatments. 13. Occasionally, about 20% of the time on the face, the stitches under the skin can spit out of the incision to the surface. It can start out looking like a pimple or blemish directly on your incision. Sometimes you can feel something poking through the incision. it can look also minic a small area of infection, so please let us know before you go to another provider for antibiotics. This means that the suture may need to be trimmed or removed when you return for your wound check. This typically occurs a few weeks after surgery if it does occur. 14. To optimize your scar, and best cosmetic result, please avoid direct sunlight to your incision for the first 6 months following surgery. UV ray exposure to your incision may cause the redness to last longer, or to cause permanent darkening of your scar. You can avoid sun by covering your incision with a bandage when outdoors, wearing broad-rimmed hats, and wearing SPF 30 to 50 sunscreen (broad spectrum). 15. Sometimes after your sutures are removed, your incision may still be healing for 1 more week. Because of this, avoid make-up and sunscreen until approximately 2 weeks after surgery. You can beginsooner if your skin edges look completely sealed. 16. Any time you have skin surgery or any type of surgery, you can experience mild sensation loss (numbness) in the area of surgery. Massage starting at 8 weeks after surgery can help. 17. Swelling and bruising is common, and expected, especially if your surgery site was on the forehead, cheeks, temples, nose, or eyelids. . Sometimes it can be quite profound, where the eyelids swell shut, or getting black eyes. This is especially true if you are on blood thinners such as aspirin. Swelling and bruising will peak at about 48 hours after surgery. Bruising and swelling will gradually resolve. You can use ice packs or a bag of frozen peas for 15-20 minutes, 20 minutes off, up to3-4 times daily to areas of swelling on the face. Use caution not to put the icy item directly ontoyour incision, or directly in contact with your skin as this can damage skin. Avoid prolonged use more than 20 minutes. The best way to use ice packs is over the bandage, or using a light cloth/papertowel barrier between the ice pack and your skin. You can ice for as many days as needed until swelling has resolved. Eyelid and lip swelling is typically the last type of swelling to resolve. o Keep in mind that if you do not want to use a bandage at all due to difficulty, allergies, irritation of skin, cost, time, or inconvenience --- you can certainly avoid bandages altogether. However, it is imperative that you continue with topical petrolatum ointment or Aquaphor (plain, fragrance-free). This may need to be applied several times daily if it gets wiped off, washed off, or dries out. Things to purchase for wound care: -Nonstick gauze -A tube or tub of petrolatum jelly (fragrance-free, no dye, not lotion) -paper tape -cotton swabs -gloves (optional) -Dial or other antibacterial liquid soap If you have specific questions or instructions, it can be written/typed by your nurse or doctor here: Antibiotics: If you were given antibiotic prescription, it is important to start them the evening of your surgery date. However, most patients do not need antibiotics after surgery. For pain: Most patients of different ages do not require pain medications. If you do feel soreness, throbbingor sharp pains, start by taking over the counter extra strength acetaminophen (up to 3000 mg in a 24 hour period). Generally, we like you to avoid NSAIDS (non-steroid anti-inflammatory drugs such as ibuprofen) for the first 48 hours after surgery as this can increase risk of bleeding. However, if acetaminophen is not helping with pain, you can alternate acetaminophen with iburpofen or other NSAID. Ice packs over your bandage without getting your bandage wet can also help with pain and swelling.Frozen peas work well as ice packs. THIS IS AN EXAMPLE OF A PAIN TREATMENT SCHEDULE: 1) You can take 500 mg acetaminophen one tablet by mouth at 6:00pm. This is over the counter. 2) You can take 400 mg of ibuprofen two hours later, at 8:00 pm, or other NSAID such as naproxen, as long as it does not interact with your other medications and your other doctors have not told you to avoid this. This is over the counter. Check to see how many milligrams (mg) each of your ibuprofen tablets are. Most of the time, ibuprofen comes in 200 mg tablets, so 400 mg would mean taking two of these tablets or capsules. 3) You can take 500 mg of acetaminophen at 10:00 pm. Keep track of your total acetaminophen in a 24hour period as your maximum should be 3000 mg total in a 24 hour period of this medication. 4) At midnight, you can take another 400 mg of ibuprofen. 5) you can continue on this schedule over the next 2 days, making sure to keep tabs of your total acetaminophen. If you are still in pain after trying the above, please call us. When to call your surgeon: ??? Fever of 100.4 degrees Fahrenheit or higher ??? Bleeding not controlled with direct firm pressure to your wound. Bleeding is most common in thefirst 48 hours. ??? Pain that is worsening and not relieved by over the counter medications such as acetaminophen (up to 3000 mg in a 24 hour period) ??? Wound reopening after stitching ??? Pus or bad odor from your wound ??? Worsening redness and warmth around your wound ??? If you think your surgery site is infected, please call us before seeking care or antibiotics from other providers ??? Please call us before seeking care in an emergency room or primary care. ??? If you do call, please leave your full name, phone number, date of , date of surgery, and medical record number if you have it. If after hours, please call the refinery operator assistant or [phone] and ask for the cso on-call. If you have any non-urgent questions or concerns, please feel free to call my office or contact me through our patient portal, [facility], at [email or web address] How to contact us during business hours [facility] Mohs scheduling or Mohs follow-up appointments: [phone] documented in this encounter Progress Notes * Dominguez Lopez MD - 07/06/2019 8:00 AM EST Images from the original note were not included. Summary of Procedure(s): Site: left earlobe Tumor Type: Squamous Cell Carcinoma Stages to clear tumor: 2 Repair: linear closure Images: The patient was asked to call with any issues and is aware that I am available 17/12 should questions arise. Mohs consultation and preoperative note (H&P) Patient Name: Mathew Mendez Age: 64 y.o. Date of : 1955 Today's Date: 07/06/2019 REFERRING PROVIDER: Deb Hamlin MD CC: Mohs micrographic surgery for treatment of a cutaneous tumor HPI: Mathew Mendez is a 64 y.o. 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 The dermatologic preoperative information sheet was reviewed with pertinentpositive and negative as below. DERMATOLOGIC PRE-OPERATIVE EVALUATION AND REVIEW OF SYSTEMS History of Mohs surgery? no Pacemaker/Defibrillator? no Joint replacement or other implantable devices (e.g. Cochlear implant)? If yes then when? Yes, right knee about five years ago Do you take a blood thinner? No History of organ transplant? no History of artificial valve or stroke? no History of liver disease or bleeding disorder? no Do you have any medical problems that may affect your upcoming surgery? no Do you have any concerns regarding your upcoming surgery? no We ask patients to discontinue Fish oil/Multivitamin/Vit E/?? supplements and natural medicines not prescribed by a physician 1 week prior to surgery. SOCIAL HISTORY: Makes Own Decisions Yes Hearing aid or other devices: Yes both ears Relevant travel history or future plans: None Tobacco use (amount per day, type of tobacco): no Do you have any physical limitations that may affect your surgery?: no ALLERGIES: Allergies reviewed MEDICATIONS: Medications reviewed VITAL SIGNS: There were no vitals taken for this visit. PHYSICAL EXAMINATION: General: patient is awake, alert, oriented and in no acute distress. Skin: Focused examination of surgical site(s) performed which shows an erythematous scar corresponding with recent biopsy site with overlying red hyperkeratosis and surrounding induration. PHYSICIAN REVIEW OF REPORTS, RECORDS, IMAGES: 1) The accompanying pathology report(s) associated with aforementioned biopsy slide(s) were/was also reviewed. Assessment: Mathew Mendez is a 64 y.o. male presenting for: 1. Biopsy-proven squamous cell carcinoma located on the left earlobe. Plan: 1. Findings from the biopsy report, my independent review of the histopathology from the biopsy slides, today's clinical exam, and other pertinent details were reviewed with patient today. All questions were answered. 2. Discussed treatment options based on the above findings. We recommended Mohs micrographic surgery for treatment of this tumor. Mohs micrographic surgery was indicated due to patient, site and/or tumor characteristics (see operative report for specific indication). 3. We discussed risks, benefits, and alternative treatment options to the Mohs micrographic surgeryprocedure and pertinent information including but not limited to the following: ?? Risks include bleeding, infection, scar, recurrence, incomplete tumor removal or inability to cure with surgery alone if the tumor features are more aggressive than the initial pathology indicates. Occasionally, additional adjuvant treatments may be recommended. Additional risks include large wound, prolonged wound and healing, pain, swelling, bruising, increased appearance of vessels or worsening erythema of baseline skin; more rarely risks include damage to underlying structures such as nerves, cartilage, or muscle which could lead to temporary or permanent loss of sensation or motor function. ?? Benefit is precise tumor removal ?? If reconstruction is performed, it is specific to the patient and defect. ?? Discussed that the shape, size, depth of the wound is often not known until the tumor is clearedand thus the reconstruction options are sometimes not known until after tumor clearance. Occasionally, referrals to other providers may be recommended for reconstruction based on patient preference and need. ?? Reviewed the pros and cons of common reconstructions used for this tumor type, size, and location, and that reconstruction may lead to change in appearance. ?? Natural history of scar was discussed, including that the scar will continue to mature for 1-2 years. Recommended avoidance of special ointments or scar creams, and avoidance of direct sun exposure to the scar for optimal recovery. ?? Reviewed that there are some aspects of cosmesis that are dependent on patient's characteristicssuch as age, skin laxity/texture factors, inflammatory skin diseases such as rosacea, prior surgery/radiation, degree of actinic damage, smoking status, strength of the patient's immune system, diligent wound care, medications, and genetics. ?? Having Mohs surgery may lead to physical limitations for optimal healing, such as restricted physical activity and heavy lifting. 4. The nature of sun-induced photo-aging and skin cancers was discussed. Recommended sun avoidance when possible, especially peak hours of sun 10 am to 2pm, protective clothing such as wide-brimmed hats and long-sleeved clothing, and the use of SPF broad-spectrum sunscreen SPF 50 or higher. 5. Signs and symptoms of skin cancer reviewed. Patient to report any new, changing, or symptomatic lesions and follow up with his or her cso or other skin provider. 6. Discussed avoiding direct sun exposure to scars for best cosmetic result. Dominguez Lopez MD PhD Mohs Micrographic Surgery and Dermatologic Oncology Section of Dermatology, Department of Surgery Note initiated by Patsy Chapman RN. Patsy Chapman RN has performed the documentation for this encounter in the presence of and acting as a scribe for Dr. Lopez I performed the above scribed service and agree with the accuracy of the documentation in this encounter. Reviewed and signed by: Dominguez Lopez Dermatology [facility] * Dominguez Lopez MD - 07/06/2019 8:00 AM EST Mohs micrographic Surgery Operative Report Patient name: Mathew Mendez : 1955 Date: 07/06/2019 Staff Surgeon: Dominguez Lopez MD PhD Nursing/Records Management Analyst(s): Mi Banda CMA, Patsy Chapman RN, Mary Naidu LPN, Serina Taylor CMA Box Person (s): Donna Mays Pre-operative diagnosis: Squamous Cell Carcinoma, well to moderately differentiated Post-operative diagnosis: same Location/Site: left earlobe Procedure: Mohs micrographic surgery Indication(s) for Mohs micrographic surgery: Anatomic location for tissue conservation Stages: 2 Preoperative size of tumor: 1.1 x 1.0 cm Stage I The nature and purpose of the procedure, associated risks, possible consequences and complications,and alternative forms of treatment were explained in detail. We reviewed the possible repairs basedon the clinical appearance of tumor but discussed that often the repair options may not be known until the tumor has ty extirpated. Informed consent and permission to take photographs were obtained. The site was confirmed with the patient/authorized solar sales representative and assessor/referring physician and/or a photograph form time of biopsy. A pre-operative time-out (procedural pause) was conducted with no unresolved discrepancies noted. Local anesthesia was obtained with 1% lidocaine with 1:100,000 epinephrine. The surgical site was prepped and draped in the usual sterile manner. With all visible gross tumor completely excised, the borders of the tumor and 2- 3 mm margins were excised as a complete layer. Hemostasis was achieved by electrocoagulation. The excised tissue was oriented and divided into 2 sections, chromacoded, and submitted for frozen sections. The patient tolerated the procedure well and without complications. On microscopic evaluation of the frozen sections, residual tumor was identified as squamous cell carcinoma on section A1/A2 (see section number on map). Stage II The surgical site was re-anesthetized with 1% lidocaine with 1:100,000 epinephrine, re-prepped and redraped in a sterile manner. The residual tumor was re-excised as a complete layer 2-3mm in thickness using the Mohs map to delineate area of residual tumor. Hemostasis was achieved with electrocoagul ation. The tissue was oriented and divided into 1 sections, chromacoded, and submitted for frozen sections. The patient tolerated the procedure well and without complications. On microscopic evaluation of the frozen sections, no residual tumor was identified on the deep or outer border of the sections. Depth of excision cartilage Final defect size: 1.9 x 1.6 cm OPERATIVE REPORT - REPAIR Staff Surgeon/Assistants/Date of Service: as above Clinical Diagnosis: 1.9 x 1.6 cm surgical defect secondary to Mohs micrographic extirpation of tumor Indication: Repair with zoroastrianism of anatomic structure and function Procedure Name: Ear wedge closure A timeout was performed. The type of repair was planned with surgical marker and discussed with thepatient. Given the size of the defect along with anatomic location, this repair was required. First, anesthesia with 1% lidocaine with epinephrine 1:200,000 and another sterile prep were performed. To avoid anatomical distortion, the wound was converted to a wedge-shaped defect, and a wedge closurewas performed. The wound edges were undermined as needed, and hemostasis was obtained with electrocoagulation. The wound was closed in a multilayered wedge fashion. First, the postauricular skin was reapproximated with 5-0 fast absorbing gut sutures followed by careful realignment of the anatomic landmarks and approximation of the cartilage using 4-0 Monocryl suture. The anterior skin was then closed with 5-0 fast absorbing(same as postauricular skin sutures) sutures and 5-0 fast absorbing gut skin sutures. Postoperative length: 4.2 cm. Estimated blood loss: Minimal. Complications: None. Wound care: Routine. Follow up as needed Total local anesthesia with 1% lidocaine with 1:100,000 epinephrine used: 6cc Total local with 0.25% bupivacaine with 1:100,000 epinephrine used: 6cc Note initiated by LOYD Pastor RN has performed the documentation for this encounter in the presence of and acting as a scribe for Dr. Lopez I performed the above scribed service and agree with the accuracy of the documentation in this encounter. Reviewed and signed by: Dominguez Lopez Dermatology [facility] documented in this encounter Plan of Treatment Upcoming Encounters Date Type Department Care Team (Latest Contact Info) Description 01/02/2024 7:30 AM EDT Hospital Encounter [place] [address] Lawrence Gar MD [facility] DR [place] [address] 01/02/2024 7:30 AM EDT - 01/02/2024 8:30 AM EDT Surgery [place] [address] Lawrence Gar MD [facility] DR [place]STRO[place] [address] EGD, UPPER GI ENDOSCOPY (WRVU 2.09) 11/17/2024 4:20 PM EDT Office [place] [address] Lawrence Gar MD [facility] DR 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
--- OUTSIDE RECORDS SUMMARY | 2023-12-10 05:00 | XMS_ITS | Encounter Summary ---
Author Organization [facility] [place] [address] Care Team Providers Care Take Away Attendant Name Role Phone DioJovani franks Primary Care Provider Encounter Details Date Type Department Care Team (Late st Contact Info) Description 07/11/2018 Telephone [place] [phone] Nehal Ortiz Social History Tobacco Use Types Packs/Day Years Used Date Smoking Tobacco: Never Smokeless Tobacco: Never Sex and Gender Information Value Date Recorded Sex Assigned at Not on file Gender Identity Not on file Sexual Orientation Not on file documented as of this encounter Miscellaneous Notes * Telephone Encounter - Nehal Yang - 07/11/2018 1:44 PM EST Have tried to contact the patient several times with no success. A letter was sent and still no response. Have now taken out the recall and will not attempt to schedule any further follow up appointment's unless the patient contacts our office. documented in this encounter Plan of Treatment Upcoming Encounters Date Type Department Care Team (Latest Contact Info) Description 01/02/2024 7:30 AM EDT Hospital En[place] [phone] Lawrence Gar MD [facility] [place] [address] 01/02/2024 7:30 AM EDT - 01/02/2024 8:30 AM EDT [place] [phone] Lawrence Gar MD [facility] [place] [address] EGD, UPPER GI ENDOSCOPY (WRVU 2.09) 11/17/2024 4:20 PM EDT Office [place] [phone] Lawrence aGr MD [facility] [place] [address] Scheduled Procedures Name Priority Associated Diagnoses Date/Ti me EGD, UPPER GI ENDOSCOPY (WRVU 2.09) Sharma's esophagus with dysplasia 01/02/2024 7:30 AM EDT documented as of this encounter Visit Diagnoses Not on filedocumented in this encounter Care Teams Take Away Attendant Relationship Specialty Start Date End Date Jovani Wharton DO [address] [place] [address] PCP - General Family Medicine 10/18/16 06/18/22 documented as of this encounter
--- OUTSIDE RECORDS SUMMARY | 2023-12-10 05:00 | XMS_ITS | Encounter Summary ---
Author Organization [facility] Address [facility] [place] [address] Care Team Providers Care Insurance Attorney Name Role Phone Dio, Jovani MCCAIN Primary Care Provider Encounter Details Date Type Department Care Team (Latest Contact Info) Description 10/20/2020 11:58 AM EDT - 10/20/2020 4:07 PM EDT Hospital Encounter [place] [address] Lawrence Gar MD [facility] [place] [address] Alcohol-induced chronic pancreatitis; Screen for colon cancer Discharge Disposition: Home Social History Tobacco Use [...] Sign Reading Time Taken Comments Blood Pressure 117/87 10/20/2020 2:40 PM EDT Pulse 72 10/20/2020 2:40 PM EDT Temperature 36.3 ??C (97.3 ??F) 10/20/2020 12:28 PM E DT Respiratory Rate 16 10/20/2020 2:40 PM EDT Oxygen Saturation 100% 10/20/2020 2:40 PM EDT Inhaled Oxygen Concentration - - Weight 68.9 kg (152 lb) 10/20/2020 12:28 PM EDT Height 167.6 cm (5' 6) 10/20/2020 12:28 PM EDT Body Mass Index 24.53 10/20/2020 12:28 PM EDT documented in this encounter Discharge Instructions * Discharge Instructions* Cathi Holm, RN - 10/20/2020 2:43 PM EDT Upper GI Endoscopy: What to Expect at Home [...] home? Activity Rest when you feel tired. ?? You can do your normal activities when it feels okay to do so. Diet ?? Follow your doctor's directions for eating. ?? Unless your doctor has told you not to, drink plenty of fluids. This helps to replace the fluidsthat were lost during the prep. ?? Do not drink alcohol. Medicines ?? Your doctor will tell you if and when you can restart your medicines. He or she will also give you instructions about taking any new medicines. ?? If you take blood thinners, such as warfarin (Coumadin), clopidogrel (Plavix), or aspirin, be sure to talk to your doctor. He or she will tell you if and when to start taking those medicines again. Make sure that you understand exactly what your doctor wants you to do. ?? If polyps were removed or a biopsy was done during the test, your doctor may tell you not to take aspirin or other anti-inflammatory medicines for a few days. These include ibuprofen (Advil, Motrin) and naproxen (Aleve). ?? If you have a sore throat the day after the procedure, use an kwsh-vyz-tsiysvs spray to numb your throat. Sucking on throat lozenges and gargling with warm salt water may also help relieve your symptoms. Other instructions ?? For your safety, do not drive or operate machinery until the medicine wears off and you can think clearly. Your doctor may tell you not to drive or operate machinery until the day after your test. ?? Do not sign legal documents or make major decisions until the medicine wears off and you can think clearly. The anesthesia can make it hard for you to fully understand what you are agreeing to. Additional Information for Sedation Patients For patients who received sedation: ?? You may have received medications before and/or during your procedure which effects your judgement and reaction time. ?? Do not drive, operate machinery, drink alcoholic beverages or make important decisions for 24 hours. ?? Be careful on stairs as you may be unsteady on your feet. ?? You may eat a regular diet as tolerated. ?? Do not smoke if you are alone. ?? IV site: Slight redness or tenderness is normal, you can use a warm compress if you would like. If tenderness and/or redness increase or if foul drainage occurs, please contact your Doctor. Please call [phone] before 8pm Mon-Fri with problems, questions or concerns. If you call after 8pm or on weekends, call the Hospital at [phone] and ask to speak to the [employer] insulation cupola charger and the steam turbine operator will contact that person for you. When should you call for help? Call [phone] anytime you think you may need emergency care. For example, call if: ?? You passed out (lost consciousness). ?? You pass maroon or bloody stools. ?? You have trouble breathing. Call your doctor now or seek immediate medical care if: ?? You have pain that does not get better after you take pain medicine. ?? You are sick to your stomach or cannot drink fluids. ?? You have new or worse belly pain. ?? You have blood in your stools. ?? You have a fever. ?? You cannot pass stools or gas. Watch closely for changes in your health, and be sure to contact your doctor if you have any problems. Where can you learn more? [facility] View your After Visit Summary and more online at [email or web address] If you would like to provide feedback about your hospital experience, please call the Office of Patient and Family Relations at . If you have received this After Visit Summary in error, please immediately return it in person to the department, or notify the Replaced By [facility] Privacy Office by calling toll free at between the hours of 8AM and 5PM to arrange for our retrieval of the documents at no cost to you. Content Version: 12.2 ?? 9080-0021 frents. Care instructions adapted under license by [facility]. If you have questions about a medical condition or this instruction, always ask your healthcare professional. frents disclaims any warranty or liability for your use of this information.Endoscopic Ultrasound (Oral): What to Expect At Home Your Recovery After you have an endoscopic ultrasound--a test to look for problems in the stomach, liver, gallbladder, and other organs--you will stay at the hospital or clinic for 1 to 2 hours. This will allow the medicine to wear off. You will be able to go home after your doctor or nurse checks to make sure you are not having any problems. You may have a sore throat for a day or two after the test. This care sheet gives you a general idea about what to expect after the test. How can you care for yourself at home? Activity ??? Rest when you feel tired. ?? You can do your normal activities when it feels okay to do so. Diet ?? Follow your doctor's directions for eating. ?? Unless your doctor has told you not to, drink plenty of fluids. This helps to replace the fluidsthat were lost during the colon prep. ?? Do not drink alcohol. Medicines ?? Your doctor will tell you if and when you can restart your medicines. He or she will also give you instructions about taking any new medicines. ?? If you take blood thinners, such as warfarin (Coumadin), clopidogrel (Plavix), or aspirin, be sure to talk to your doctor. He or she will tell you if and when to start taking those medicines again. Make sure that you understand exactly what your doctor wants you to do. ?? If a biopsy was done during the test, your doctor may tell you not to take aspirin or other anti-inflammatory medicines for a few days. These include ibuprofen (Advil, Motrin) and naproxen (Aleve). ?? If you have a sore throat the day after the procedure, use an eqdg-ojh-uwdfbfw spray to numb your throat. Sucking on throat lozenges and gargling with warm salt water may also help relieve your symptoms. Other instructions ?? For your safety, do not drive or operate machinery until the medicine wears off and you can think clearly. Your doctor may tell you not to drive or operate machinery until the day after your test. ?? Do not sign legal documents or make major decisions until the medicine wears off and you can think clearly. The anesthesia can make it hard for you to fully understand what you are agreeing to. Additional Information for Sedation Patients For patients who received sedation: ?? You may have received medications before and/or during your procedure which effects your judgement and reaction time. ?? Do not drive, operate machinery, drink alcoholic beverages or make important decisions for 24 hours. ?? Be careful on stairs as you may be unsteady on your feet. ?? You may eat a regular diet as tolerated. ?? Do not smoke if you are alone. ?? IV site: Slight redness or tenderness is normal, you can use a warm compress if you would like. If tenderness and/or redness increase or if foul drainage occurs, please contact your Doctor. Please call [phone] before 8pm Mon-Fri with problems, questions or concerns. If you call after 8pm or on weekends, call the Hospital at [phone] and ask to speak to the [employer] insulation cupola charger and the steam turbine operator will contact that person for you. When should you call for help? Call [phone] anytime you think you may need emergency care. For example, call if: ?? You passed out (lost consciousness). ?? You pass maroon or bloody stools. ?? You have trouble breathing. Call your doctor now or seek immediate medical care if: ?? You have pain that does not get better after you take pain medicine. ?? You are sick to your stomach or cannot drink fluids. ?? You have new or worse belly pain. ?? You have blood in your stools. ?? You have a fever. ?? You cannot pass stools or gas. Watch closely for changes in your health, and be sure to contact your doctor if you have any problems. Where can you learn more? [email or web address] View your After Visit Summary and more online at [email or web address] If you would like to provide feedback about your hospital experience, please call the Office of Patient and Family Relations at . If you have received this After Visit Summary in error, please immediately return it in person to the department, or notify the [facility] Privacy Office by calling toll free at between the hours of 8AM and 5PM to arrange for our retrieval of the documents at no cost to you. Content Version: 12.2 ?? 9336-6987 frents. Care instructions adapted under license by [facility]. If you have questions about a medical condition or this instruction, always ask your healthcare professional. frents disclaims any warranty or liability for your use of this information. * Patient Instructions* Lawrence Gar MD - 10/20/2020 4:07 PM EDT Please see Recommendations in the Provation procedure report which is documented in the procedural note in E-DH. documented in this encounter Medications at Time of Discharge Medication Sig Dispensed Refills Start Date End Date triamcinolone (KENALOG) 0.1 % Ointment Apply to affected areas on ankles twice daily x 2 weeks, then reduce to once daily x 2 weeks. For recurrences, okay to use up to 14 days total per month 45 g 3 08/11/2020 lansoprazole (Prevacid) [address] capsule Daily 05/22/2019 08/17/2022 traZODone (Desyrel) 50 mg tablet every day at bedtime 02/17/2020 amoxicillin (Amoxil) 500 mg Capsule TAKE FOUR CAPSULES BY MOUTH 1 HOUR PRIOR TO VISIT 08/30/2020 08/30/2023 fluorouraciL (EFUDEX) 5 % Cream Apply to the ears twice daily x 3 weeks 40 g 08/11/2020 08/17/2022 vcswvj-nrjiqhlg-zdcbec e (Creon 6) 6,000-19,000 -30,000 unit Capsule, Delayed Release(E.C.) Take 6.615 capsules by mouth. 07/19/2020 01/17/2021 cephALEXin (Keflex) 500 mg Capsule Begin taking evening prior to flap takedown. Take one capsule PO BID x 7 days. 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 022 lisinopriL (Prinivil;Zestril) 5 mg Tablet Take 5 mg by mouth daily. 12/08/2019 08/30/2023 cyanocobalamin, Vitamin B-12, (VITAMIN B-12) 100 mcg Tablet Take 100 mcg by mouth daily. 04/09/2023 allopurinol (ZYLOPRIM) 100 mg Tablet Take 100 mg by mouth daily. 04/09/2023 amLODIPine (NORVASC) 5 mg Tablet Take 10 mg by mouth daily. 08/17/2022 lansoprazole (PREVACID) 30 mg Capsule, Delayed Release(E.C.) Take 30 mg by mouth daily. 0 08/27/2016 01/17/2021 meTOPROLOL succinate (TOPROL-XL) 100 mg Tablet Sustained Release 24 hr Take 100 mg by mouth daily. 0 08/27/2016 08/17/2022 documented as of this encounter H&P Notes * Sarina Pinto MD - 10/20/2020 12:58 PM EDT Patient Name: Mathew Mendez Patient Age: 65 y.o. Birthdate: 1955 Admit date: 10/20/2020 Attending Physician: Lawrence Gar MD PROBLEM LIST Patient Active Problem List Diagnosis Code ??? [...] cancer Z12.11 ??? Gastroesophageal reflux disease K21.9 HISTORY OF PRESENT ILLNESS Mathew Mendez is a 65 y.o. with PMHx of pancreatitis, GERD, HTN, HLD, ETOH use who presents for EGD. EUS, colo. MEDICATIONS No current facility-administered medications on file prior to encounter. Current Outpatient Medications on File Prior to Encounter Medication Sig Dispense Refill ??? fezsun-mzilrjgb-qfmomri DR (Creon 6) 6,000-19,000 -30,000 unit Capsule, Delayed Release(E.C.) Take 6.615 capsules by mouth. ??? lisinopriL (Prinivil;Zestril) 5 mg Tablet TK 1 T PO D ??? cyanocobalamin, Vitamin B-12, (VITAMIN B-12) 100 mcg Tablet Take 100 mcg by mouth daily. ??? allopurinol (ZYLOPRIM) 100 mg Tablet Take 100 mg by mouth daily. ??? amLODIPine (NORVASC) 5 mg Tablet Take 10 mg by mouth daily. ??? lansoprazole (PREVACID) 30 mg Capsule, Delayed Release(E.C.) Take 30 mg by mouth daily. 0 ??? meTOPROLOL succinate (TOPROL-XL) 100 mg Tablet Sustained Release 24 hr Take 100 mg by mouth daily. 0 ??? cephALEXin (Keflex) 500 mg Capsule Begin taking evening prior to flap takedown. Take one capsule PO BID x 7 days. (Patient not taking: Reported on 08/09/2020) 14 capsule 0 ??? cephALEXin (KEFLEX) 500 mg Tablet One tablet by mouth twice daily for 7 days (Patient not taking: Reported on 07/04/2020) 14 tablet 0 ??? magnesium 250 mg Tablet Take by mouth daily. PHYSICAL EXAM: Blood pressure 143/87, pulse 82, temperature 36.3 ??C (97.3 ??F), temperature source Skin, height 167.6 cm (5' 6), weight 68.9 kg (152 lb), SpO2 99 %. GEN: Alert, cooperative. Pleasant. In NAD MP I ASA II HEENT: NCAT. Neck supple. LUNGS: breathing comfortably on RA ABD: soft, NT/ND RECENT LABS No results found for this or any previous visit (from the past 24 hour(s)). ASSESSMENT AND PLAN Mathew Mendez is a 65 y.o. y/o who presents for endoscopic evaluation. Risks extensively discussed including bleeding, infection, reaction to anesthesia, perforation, pancreatitis (if applicable), bile duct injury (if applicable), missing a cancer (if applicable) and/or other unforseen complication. Consent signed and patient well informed of the risks of the procedure. documented in this encounter Miscellaneous Notes * Op Note - Lawrence Gar MD - 10/20/2020 1:12 PM EDT [facility] Operative Note Patient Name: Mathew Mendez : [id number] MR#: [id number] Case Date: 10/20/2020 Surgeon: Surgeon(s) and Role: * Lawrence Gar MD - Primary * Sarina Pinto MD - Fellow Preoperative diagnosis: Pancreatitis, GERD and colon cancer screening Postoperative diagnosis: * No post-op diagnosis entered * Procedure(s) (LRB): EGD WITH BIOPSY (WRVU 2.49) (N/A) UPPER EUS- ENDOSCOPIC ULTRASOUND (N/A) COLONOSCOPY, POLYPECTOMY, REMOVAL LESION BY SNARE (WRVU 4.67) (N/A) Full procedure note is documented under the Procedure section of eDH. documented in this encounter Plan of Treatment Upcoming Encounters Date Type Department Care Team (Latest Contact Info) Description 01/02/2024 7:30 AM EDT Hospital Encounter [place] [address] Lawrence Gar MD [facility] [place] [address] 01/02/2024 7:30 AM EDT - 01/02/2024 8:30 AM EDT Surgery [place] [address] Lawrence Gar MD [facility] [place] [address] EGD, UPPER GI ENDOSCOPY (WRVU 2.09) 11/17/2024 4:20 PM EDT Office [place] [address] Lawrence Gar MD [facility] [place] [address] Scheduled Procedures Name Priority Associated Diagnoses Date/Ti me EGD, UPPER GI ENDOSCOPY (WRVU 2.09) Sharma's esophagus with dysplasia 01/02/2024 7:30 AM EDT documented as of this encounter Procedures Procedure Name Priority Date/Time Associated Diagnosis Comments SURGICAL PATHOLOGY REPORT Routine 10/20/2020 2:16 PM EDT SPECIMEN TO PATHOLOGY Routine 10/20/2020 2:16 PM EDT SPECIMEN TO PATHOLOGY Routine 10/20/2020 2:16 PM EDT SPECIMEN TO PATHOLOGY Routine 10/20/2020 2:16 PM EDT SPECIMEN TO PATHOLOGY Routine 10/20/2020 2:16 PM EDT SPECIMEN TO PATHOLOGY Routine 10/20/2020 2:16 PM EDT Colonoscopy, Remv Lesn, Snare ([id number]) 10/20/2020 1:03 PM EDT Alcohol-induced chronic pancreatitis Screen for colon cancer Gastroesophageal reflux disease, unspecified whether esophagitis present UPPER EUS- ENDOSCOPIC ULTRASOUND (WRVU 3.47) 10/20/2020 1:03 PM EDT Alcohol-induced chronic pancreatitis Screen for colon cancer Gastroesophageal reflux disease, unspecified whether esophagitis present Upper Gi Endoscopy, Biopsy ([id number]) 10/20/2020 1:03 PM EDT Alcohol-induced chronic pancreatitis Screen for colon cancer Gastroesophageal reflux disease, unspecified whether esophagitis present UPPER EUS-ENDOSCOPIC ULTRASOUND Routine 10/20/2020 12:46 PM EDT COLONOSCOPY Routine 10/20/2020 12:46 PM EDT documented in this encounter Results * Surgical Pathology Report (10/20/2020 2:16 PM EDT) Pathologist [facility] Surgical Pathology Report [id number] ? Location: 4T; EA12; A The signing pathologist has (i) examined the relevant preparation(s) for the specimen(s) and (ii) rendered or confirmed the diagnosis(es). . ?Surgical Pathology DIAGNOSIS A - GE junction biopsies r/o Barretts, biopsy: - ??Squamocolumnar junctional mucosa with intestinal metaplasia, negative for dysplasia (see Discussion). B - Mid esophagus biopsies r/o EOE, biopsy: - ??Esophageal squamous mucosa, within normal limits. C - Cecal polyps, resection: - ??Fragments of tubulovillous adenoma(s). D - Transverse colon polyp, resection: - ??Tubular adenoma. E - Descending colon polyp, resection: - ??Fragments of tubular adenoma. Electronically signed by: ?Toya HENDRICKS PhD, Shyla Verified: ??11/02/2020 15:00 ??Pathologist Performed at: ??[facility] Dept. of Pathology, [place], [place] DISCUSSION A - ??The findings are compatible with Sharma esophagus in the appropriate endoscopic setting. SPECIMEN(S) SUBMITTED A - GE junction biopsies r/o Barretts, biopsy (4) B - Mid esophagus biopsies r/o EOE, biopsy (4) C - Cecal polyps, resection (3) D - Transverse colon polyp, resection (1) E - Descending colon polyp, resection (1) CLINICAL INFORMATION History of dysphagia, screening colonoscopy SPECIMEN PROCESSING A - Labeled/Fixative: GE junction biopsies rule out Sharma's, formalin. Quantity/Size: Four, ranging 0.3-0.4 cm. Tissue Description: Soft, pink-red tissues. Sections/Processi ng: Submitted en toto ??in 1 cassette labeled A1. B - Labeled/Fixative: Mid esophagus biopsies rule out EOE, formalin. Quantity/Size: Three, ranging 0.3-0.5 cm. Tissue Description: Soft, pink-red tissues. Sections/Processi ng: Submitted en toto ??in 1 cassette labeled B1. C - Labeled/Fixative: Cecal polyps, formalin. Quantity/Size: Multiple, Ranging 0.2-0.9 cm. . SPECIMEN PROCESSING Tissue Description: Soft, red-mario tissues. Sections/Processi ng: Submitted en toto ??in 6 cassettes as follows: ?C1-C3: ??Polypoid tissue ?C4: ??Polyp inked and bisected ?C5: ??Polyp inked and quadrasected ?C6: ??Polyp inked and quadrasected D - Labeled/Fixative: Transverse colon polyp, formalin. Quantity/Size: Single, 0.5 cm. Tissue Description: Soft, red tissue. Sections/Processi ng: Inked, bisected and entirely submitted in 1 cassette labeled D1. E - Labeled/Fixative: Descending colon polyp, formalin. Quantity/Size: Five, ranging 0.3-0.5 cm. Tissue Description: Soft, red-mario tissues. Sections/Processi ng: Submitted en toto ??in 3 cassettes as follows: ?E1: ??Polypoid tissue ?E2: ??Polyp inked and bisected ?E3: ??Polyp inked and bisected ??[facility] 10/20/2020 2:16 PM EDT Lawrence Gar MD PATHOLOGY/CYTOLOGY Eugenie [place] [address] * Specimen to Pathology (10/20/2020 2:16 PM EDT) AP Specimen 10/20/2020 2:16 PM EDT 10/20/2020 2:16 PM EDT Narrative [facility] - 10/20/2020 2:16 PM EDT Specimen requisition ordered. ??Separate Pathology report to follow Lawrence Gar MD PATHOLOGY/[place] [address] * Specimen to Pathology (10/20/2020 2:16 PM EDT) AP Specimen 10/20/2020 2:16 PM EDT 10/20/2020 2:16 PM EDT Narrative [facility] - 10/20/2020 2:16 PM EDT Specimen requisition ordered. ??Separate Pathology report to follow Lawrence Gar MD PATHOLOGY/[place] [address] * Specimen to Pathology (10/20/2020 2:16 PM EDT) AP Specimen 10/20/2020 2:16 PM EDT 10/20/2020 2:16 PM EDT Narrative [facility] - 10/20/2020 2:16 PM EDT Specimen requisition ordered. ??Separate Pathology report to follow Lawrence Gar MD PATHOLOGY/[place] [address] * Specimen to Pathology (10/20/2020 2:16 PM EDT) AP Specimen 10/20/2020 2:16 PM EDT 10/20/2020 2:16 PM EDT Narrative [facility] - 10/20/2020 2:16 PM EDT Specimen requisition ordered. ??Separate Pathology report to follow Lawrence Gar MD PATHOLOGY/CYTOLOGY O SONIYA Performing Organization Address [facility] [place] [address] * Specimen to Pathology (10/20/2020 2:16 PM EDT) AP Specimen 10/20/2020 2:16 PM EDT 10/20/2020 2:16 PM EDT Narrative [facility] - 10/20/2020 2:16 PM EDT Specimen requisition ordered. ??Separate Pathology report to follow Lawrence Gar MD PATHOLOGY/CYTOLOGY O SONIYA Performing Organization Address [facility] [place] [address] * UPPER EUS-ENDOSCOPIC ULTRASOUND (10/20/2020 12:46 PM EDT) UPPER ENDOSCOPIC ULTRASOUND [facility] Endoscopy Procedure Date: 10/20/2020 12:46 PM ? Patient Name: Mathew Mendez ? N: [id number] ? Date of : 1955 ? Age: 65 ? Order #: [id number] ? Instrument Name: [id number] ? Procedure: ? Upper EUS Indications: ? Dysphagia, Follow-up of ? gastro-esophageal reflux disease Providers: ? Lawrence Gar MD, Sarina Pinto, ? Ilya Scales MD: ?Jovani Wharton, DO Medicines: ? Monitored Anesthesia Care Complications: ? No immediate complications. Procedure: ? Pre-Anesthesia Assessment: ? - [place] Protocol: ? - Pre-procedure Verification: Prior ? to the procedure, the patient's ? identity was verified by full name, ? date of and medical record ? number. The patient's identity was ? verified on all pertinent medical ? records, including History and ? Physical, nursing assessment and ? pre-anesthesia assessment. Also prior ? to the procedure, a History and ? Physical was performed, and patient ? medications, allergies and ? sensitivities were reviewed. The ? patient's tolerance of previous ? anesthesia was reviewed. The risks ? and benefits of the procedure and the ? sedation options and risks were ? discussed with the patient. All ? questions were answered and informed ? consent was obtained. ? - Marking: The endoscopic procedure ? was visually marked on a patient ? wrist band delineating the patient ? name, proposed procedure and ? endoscopist's initials. ? - Time-Out: Prior to the start of the ? procedure, the patient's ? identification, proposed procedure, ? accurate signed consent, correctly ? labeled images and records, and need ? for prophylactic antibiotics were ? verified by the physician, the nurse, ? the cut plug packer and the satellite tv technician in ? the pre-procedure area in the ? procedure room. ? The procedure, indications, benefits, ? risks and alternatives were explained ? to the patient. Specifically ? discussed were potential ? complications including, but not ? limited to, bleeding, perforation, ? infection, missing a cancer, and ? adverse medication reactions.The ? Endoscope was introduced through the ? mouth, and advanced to the second ? part of duodenum. The patient ? tolerated the procedure well. The ? upper GI endoscopy was accomplished ? without difficulty. The patient ? tolerated the procedure well. The ? procedure, indications, benefits, ? risks and alternatives were explained ? to the patient. Specifically ? discussed were potential ? complications including, but not ? limited to, bleeding, perforation, ? infection, missing a cancer, and ? adverse medication reactions. ? Findings: ? The esophagus and gastroesophageal junction were ? examined with white light and narrow band imaging ? (NBI) from a forward view and retroflexed position. ? There were esophageal mucosal changes suspicious for ? short-segment Sharma's esophagus. C0M2 These changes ? involved the mucosa at the upper extent of the ? gastric folds (35 cm from the incisors) extending to ? the Z-line (33 cm from the incisors). Biopsies were ? taken from the GE junction with a cold forceps for ? histology. Biopsies performed from mid-esophagus to ? rule out EOE in the setting of dysphagia. ? A 5 cm hiatal hernia was present. The stomach was ? J-shaped and resulted in extensive looping of the ? scope to reach the duodenum. ? The examined duodenum was normal. ? ENDOSONOGRAPHIC FINDING: : ? The esophagus, stomach and duodenum were visualized ? endosonographically and were otherwise normal. ? Lobularity and hyperechoic strands in the pancreas ? head and neck concerning for changes of chronic ? pancreatitis. The findings were less apparent in the ? body and tail. The duct was normal in caliber. ? There was no sign of significant endosonographic ? abnormality in the common bile duct. No stones, no ? biliary sludge, ducts of normal caliber and ducts ? with regular contour were identified. ? One 8 mm stone was visualized endosonographically in ? the gallbladder body. The stone was round. It was ? hyperechoic and shadowing. ? There was diffuse abnormal echotexture in the ? visualized portion of the liver. This was ? characterized by a hyperechoic appearance. ? No significant lymphadenopathy seen. ? Moderate Sedation: ? 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 junction as well as mid-esophagus to ? rule out EOE. ? - Large hiatal hernia with J-shaped ? stomach. ? - Normal duodenum. ? - Lobularity and hyperechoic strands ? and foci in the head and neck of ? pancreas suggestive of chronic ? pancreatitis. ? - 7 mm stone in the gallbladder with ? normal biliary tree. ? - Abnormal liver echotexture ? consistent with fatty liver disease. Recommendation: ?- Follow pathology results. ? - Continue Creon and omeprazole. ? - Proceed to colonoscopy. ? - F/up in GI Clinic. ? - The attending physician listed ? above was present for the entire ? procedure. ? Procedure Code(s): ?? --- Professional --- ? 22510, Esophagogastroduodenos copy, ? flexible, transoral; with endoscopic ? ultrasound examination, including the ? esophagus, stomach, and either the ? duodenum or a surgically altered ? stomach where the jejunum is examined ? distal to the anastomosis ? 43470, Esophagogastroduodenos copy, ? flexible, transoral; with biopsy, ? single or multiple Diagnosis Code(s): ?? --- Professional --- ? K22.8, Other specified diseases of ? esophagus ? K44.9, Diaphragmatic hernia without ? obstruction or gangrene ? R13.10, Dysphagia, unspecified ? K21.9, Gastro-esophageal reflux ? disease without esophagitis ? --- Technical --- ? K22.8, Other specified diseases of ? esophagus ? K44.9, Diaphragmatic hernia without ? obstruction or gangrene ? R13.10, Dysphagia, unspecified ? K21.9, Gastro-esophageal reflux ? disease without esophagitis CPT copyright 2019 [employer]. All rights reserved. The codes documented in this report are preliminary and upon remote inpatient coder review may be revised to meet current compliance requirements. Attending Participation: ? I was present and participated during the entire ? procedure, including non-yates portions. ? Lawrence Gar MD 10/20/2020 4:41:03 PM This report has been signed electronically. Number of Addenda: 0 Note Initiated On: 10/20/2020 12:46 PM PROVATION 10/20/2020 12:4 6 PM EDT Jovani Wharton DO GENERAL SURGICAL ORD ERABLES PROVATION * COLONOSCOPY (10/20/2020 12:46 PM EDT) COLONOSCOPY [facility] Endoscopy Procedure Date: 10/20/2020 12:46 PM ? Patient Name: Mathew Mendez ? N: [id number] ? Date of : 1955 ? Age: 65 ? Order #: [id number] ? Instrument Name: [id number] ? Procedure: ? Colonoscopy Indications: ? Screening for colorectal malignant ? neoplasm Providers: ? Lawrence Gar MD, Sarina Pinto, ? Ilya Scales Referring : ?Jovani Wharton, DO Medicines: ? Monitored Anesthesia Care Complications: ? No immediate complications. Procedure: ? Pre-Anesthesia Assessment: ? - [place] Protocol: ? - Pre-procedure Verification: Prior ? to the procedure, the patient's ? identity was verified by full name, ? date of and medical record ? number. The patient's identity was ? verified on all pertinent medical ? records, including History and ? Physical, nursing assessment and ? pre-anesthesia assessment. Also prior ? to the procedure, a History and ? Physical was performed, and patient ? medications, allergies and ? sensitivities were reviewed. The ? patient's tolerance of previous ? anesthesia was reviewed. The risks ? and benefits of the procedure and the ? sedation options and risks were ? discussed with the patient. All ? questions were answered and informed ? consent was obtained. ? - Marking: The endoscopic procedure ? was visually marked on a patient ? wrist band delineating the patient ? name, proposed procedure and ? endoscopist's initials. ? - Time-Out: Prior to the start of the ? procedure, the patient's ? identification, proposed procedure, ? accurate signed consent, correctly ? labeled images and records, and need ? for prophylactic antibiotics were ? verified by the physician, the nurse, ? the cut plug packer and the satellite tv technician in ? the procedure room. ? The procedure, indications, benefits, ? risks and alternatives were explained ? to the patient. Specifically ? discussed were potential ? complications including, but not ? limited to, bleeding, perforation, ? infection, missing a cancer, and ? adverse medication reactions. The ? patient was placed in the left ? lateral decubitus position, and a ? digital rectal exam was performed. ? The Colonoscope was inserted in the ? anus and under direct visualization, ? advanced to the terminal ileum. ? Careful inspection was made as the ? colonoscope was withdrawn. The ? colonoscopy was performed without ? difficulty. The patient tolerated the ? procedure well. The quality of the ? bowel preparation was good. ? Findings: ? The perianal and digital rectal examinations were ? normal. ? The terminal ileum appeared normal. ? A 12 mm polyp was found in the cecum. The polyp was ? sessile. The polyp was removed with a piecemeal ? technique using a cold snare. Resection and retrieval ? were complete. ? A less than 5 mm polyp was found in the ascending ? colon. The polyp was removed with a cold snare. ? Resection and retrieval were complete. ? Two sessile polyps were found in the transverse ? colon. The polyps were less than 5 mm in size. These ? polyps were removed with a cold snare. Resection and ? retrieval were complete. ? A less than 5 mm polyp was found in the descending ? colon. The polyp was removed with a cold snare. ? Resection and retrieval were complete. ? There was evidence of a prior end-to-side ? colo-colonic anastomosis in the sigmoid colon. This ? was patent and was characterized by healthy appearing ? mucosa. The anastomosis was traversed. ? The exam was otherwise without abnormality. ? Moderate Sedation: ? Not applicable - See Anesthesia documentation Impression: ?- The examined portion of the ileum ? was normal. ? - One 12 mm polyp in the cecum, ? removed piecemeal using a cold snare. ? Resected and retrieved. ? - 4 polyps <5 mm (ascending x 1, ? transverse x 2, descending x 1) s/p ? resection. ? - Patent end-to-side colo-colonic ? anastomosis, characterized by healthy ? appearing mucosa. ? - Otherwise normal. Recommendation: ?- Await pathology results. ? - Repeat colonoscopy in 3 years for ? surveillance pending path review. ? - The attending physician listed ? above was present for the entire ? procedure. ? Procedure Code(s): ?? --- Professional --- ? 19452, Colonoscopy, flexible; with ? removal of tumor(s), polyp(s), or ? other lesion(s) by snare technique Diagnosis Code(s): ?? --- Professional --- ? Z12.11, Encounter for screening for ? malignant neoplasm of colon ? K63.5, Polyp of colon ? Z98.0, Intestinal bypass and ? anastomosis status ? --- Technical --- ? Z12.11, Encounter for screening for ? malignant neoplasm of colon ? K63.5, Polyp of colon ? Z98.0, Intestinal bypass and ? anastomosis status CPT copyright 2019 [employer]. All rights reserved. The codes documented in this report are preliminary and upon remote inpatient coder review may be revised to meet current compliance requirements. Attending Participation: ? I was present and participated during the entire ? procedure, including non-yates portions. ? __ Lawrence Gar MD 10/20/2020 4:37:04 PM This report has been signed electronically. Number of Addenda: 0 Note Initiated On: 10/20/2020 12:46 PM [facility]ATION 10/20/2020 12:4 6 PM EDT Jovani Wharton DO GENERAL SURGICAL ORD ERABLES [facility]ATION documented in this encounter Visit Diagnoses Diagnosis Alcohol-induced chronic pancreatitis Chronic pancreatitis Screen for colon cancer Special screening for malignant neoplasms, colon Gastroesophageal reflux disease Esophageal reflux Sharma's esophagus with dysplasia Sharma's esophagus documented in this encounter Admitting Diagnoses Diagnosis Alcohol-induced chronic pancreatitis Chronic pancreatitis Screen for colon cancer Special screening for malignant neoplasms, colon documented in this encounter Administered Medications Inactive Administered Medications - up to 3 most recent administrations Medication Order MAR Action Action Date Dose Rate Site lactated ringers infusion 100 mL/hr, Intravenous, CONTINUOUS, Starting on Ladan 10/20/20 at 1245, Until Ladan 10/20/20 at 1443, Endoscopy (Day of Procedure) Restarted 10/20/2020 1:03 PM EDT New Bag 10/20/2020 12:45 PM EDT 100 mL/hr 100 mL/hr documented in this encounter Active and Recently Administered Medications Times are shown in EDT. Continuous Medication Order 10/18/2020 10/19/2020 10/20/2020 lactated ringers infusion (CANCELED) 100 mL/hr, Intravenous, CONTINUOUS, Starting on Ladan 10/20/20 at 1245, Until Ladan 10/20/20 at 1443, Endoscopy (Day of Procedure) 1245 (New Bag - Prov ider: Mae Galdamez RN)1302 (Paused - Provider: Obey Amezquita CRNA - Comment: Switch to gravity)1303 (Restarted - Provider: Obey Amezquita CRNA) documented in this encounter Care Teams Insurance Attorney Relationship Specialty Start Date End Date Jovani Wharton DO [address] [place] [address] PCP - General Family Medicine 10/18/16 06/18/22 documented as of this encounter
--- OUTSIDE RECORDS SUMMARY | 2023-12-10 05:00 | XMS_ITS | Encounter Summary ---
[facility] Organization [facility] [place] [address] Care Team Providers Care Business Systems Developer Name Role Phone DioJovani franks Primary Care Provider Reason for Visit * Reason Comments Skin Check Encounter Details Date Type Department Care Team (Late st Contact Info) Description 07/13/2019 11:15 AM EST Office Visit Dermatology at [address] [phone] Deb Hamlin MD [facility] [address] Actinic keratoses; Actinic skin damage; History of SCC (squamous cell carcinoma) of skin Social History Tobacco Use Types Packs/Day Years Used Date Smoking Tobacco: Never Smokeless Tobacco: Never Sex and Gender Information Value Date Recorded Sex Assigned at Not on file Gender Identity Not on file Sexual Orientation Not on file documented as of this encounter Progress Notes * Deb Hamlin MD - 07/13/2019 11:15 AM EST DERMATOLOGY - ESTABLISHED PATIENT NOTE Date of service: 07/13/2019 Mathew Mendez : 1955 CC: Skin exam HPI: Mathew Mendez is a 64 y.o. established patient. Last seen in [facility]: 05/25/2019 Here today with the following concerns: - No specific lesions that are concerning. No spots that are changing colors, itching, or bleeding. Last FSE: Has not have a full skin exam Current sun protection: none ?? Relevant Medical History: Preferred name: Mathew Skin type: 1 ?? Yes/No If yes (date, subtype, location, treatment) Melanoma No ?? Dysplastic nevi No ?? SCC Yes 04/2019: Left earlobe, well to mod dif, s/p Mohs BCC No ?? AK Yes LN2 Eczema/Psoriasis Yes Betamethasone dipropionate Immunosuppression or Malignancy No ?? History of blistering sunburn Yes As a child Other No ? Procedure Screening Questions: ?? Yes/No If Yes, details Defibrillator/Pacemaker No ?? Artificial Joints Yes Right knee Heart Valves No ?? Blood Thinners No ?? Prophylactic Antibiotics Yes ?? Best way to reach with results Phone Ok to leave message ? Relevant Family History: ?? Yes/No If yes, who (mom/dad/sibling/child) Melanoma No ?? SCC No ?? BCC No ?? Psoriasis or Eczema No ?? Other No ? 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 Medications: allopurinoL, amLODIPine, augmented betamethasone dipropionate, celecoxib, cyanocobalamin (Vitamin B-12), ibuprofen, lansoprazole, metoprolol succinate XL, and naltrexone Allergies Allergen Reactions ??? Morphine Hives Review of Systems: - General: Feels well. - Skin: No other skin concerns. Examination: - Constitutional: Patient was alert, well-appearing and in no noticeable distress. - Skin exam: The patient was asked to disrobe to the level of their comfort. Full skin examination of the scalp, hair, head, face, neck, back, chest, abdomen, right and left upper extremities, right and left lower extremities and buttocks was normal with the exception of the findings listed below. Notable findings/Assessment/Plan: Actinic keratoses/Actinic damage - scattered ill defined scaly pink papules on the right taoist x 3, right mid superior helix x 1, right cheek x 2 with background of moderate actinic damage on the face - Reviewed diagnosis with patient and treatment options: LN2 vs 5FU. Joint decision to treat thicker AKs today with LN2 as below: Liquid Nitrogen Procedure - two freeze thaw cycles Number of lesions - 6 The patient's consent for liquid nitrogen was obtained. Risks and benefits were explained. The possible need for additional liquid nitrogen was reviewed. Risks of increased pigmentation, decreased pigmentation, blister formation, infection, pain, and recurrence were all discussed. The patient tolerated the procedure well. Wound care was reviewed. - Reviewed the importance of sun protection. Handout given on recommended physical sunscreen. - consider 5FU in the next 1-2 years if persistent actinic damage after above History of SCC - Well-healed scar on the left earlobe - No evidence of recurrence. RTC: December 2019 for waist-up skin exam and June 2020 for FSE or PRN if symptoms worsen or persist. Note initiated by Adela Pino CMA. Augustus Aliza has performed the documentation for this encounter in the presence of and acting as a scribe for Dr. Hamlin. I performed the above scribed service and agree with the accuracy of the documentation in this encounter. Reviewed and signed by: Deb Hamlin MD Dermatology [facility] documented in this encounter Plan of Treatment Upcoming Encounters Date Type Department Care Team (Latest Contact Info) Description 01/02/2024 7:30 AM EDT Hospital Encounter [place] [address] Lawrence Gar MD [facility] [place] [address] 01/02/2024 7:30 AM EDT - 01/02/2024 8:30 AM EDT Surgery [place] [address] Lawrence Gar MD [facility] [place] [address] EGD, UPPER GI ENDOSCOPY (WRVU 2.09) 11/17/2024 4:20 PM EDT Office Visit [place] [address] Lawrence Gar MD [facility] DR [place]STROENTER[place] [address] Scheduled Procedures Name Priority Associated Diagnoses Date/Ti me EGD, UPPER GI ENDOSCOPY (WRVU 2.09) Sharam's esophagus with dysplasia 01/02/2024 7:30 AM EDT documented as of this encounter Visit Diagnoses Diagnosis Actinic keratoses Actinic keratosis Actinic skin damage Other chronic dermatitis due to solar radiation History of SCC (squamous cell carcinoma) of skin Personal history of other malignant neoplasm of skin Sharma's esophagus with dysplasia Sharma's esophagus documented in this encounter Care Teams Business Systems Developer Relationship Specialty Start Date End Date Jovani Wharton DO [address] [place] [address] PCP - General Family Medicine 10/18/16 06/18/22 documented as of this encounter
--- OUTSIDE RECORDS SUMMARY | 2023-12-10 05:00 | XMS_ITS | Encounter Summary ---
Author Organization [facility] [place] [address] Care Team Providers Care Service Aide Name Role Phone DioJovani franks Primary Care Provider Encounter Details Date Type Department Care Team (Late st Contact Info) Description 08/22/2020 Telephone [place] [address] Cynthia Kim Social History Tobacco Use Types Packs/Day Years [...] 7:30 AM EDT Hospital Encounter [place] [address] Lawrence Gar MD [facility] [place] [address] 01/02/2024 7:30 AM EDT - 01/02/2024 8:30 AM EDT Surgery [place] [address] Lawrence Gar MD [facility] [place] [address] EGD, UPPER GI ENDOSCOPY (WRVU 2.09) 11/17/2024 4:20 PM EDT Office [place] [address] Lawrence Gar MD [facility] [place] [address] Scheduled Procedures Name Priority Associated Diagnoses Date/Ti me EGD, UPPER GI ENDOSCOPY (WRVU 2.09) Sharma's esophagus with dysplasia 01/02/2024 7:30 AM EDT documented as of this encounter Visit Diagnoses Not on filedocumented in this encounter Care Teams Service Aide Relationship Specialty Start Date End Date Jovani Wharton DO [address] [place] [address] PCP - General Family Medicine 10/18/16 06/18/22 documented as of this encounter
--- OUTSIDE RECORDS SUMMARY | 2023-12-10 05:00 | XMS_ITS | Encounter Summary ---
Author Organization [facility] Address [facility] [place] [address] Care Team Providers Care Swage Toolsetter Name Role Phone DioJovani franks Primary Care Provider Encounter Details Date Type Department Care Team (Late st Contact Info) Description 04/25/2020 10:30 AM EST Office Visit Dermatology at [facility] [address] [place] [address] Deb Hamlin MD [facility] [place] [address] Xerosis of skin; Neoplasm of uncertain behavior Social History Tobacco Use Types Packs/Day Years Used Date Smoking Tobacco: Never Smokeless Tobacco: Never Sex and Gender Information Value Date Recorded Sex Assigned at Not on file Gender Identity Not on file Sexual Orientation Not on file documented as of this encounter Progress Notes * Deb Hamlin MD - 04/25/2020 10:30 AM EST Images from the original note were not included. DERMATOLOGY - ESTABLISHED ACUTE NOTE Date of service: 04/25/2020 Mathew Mendez : 1955 CC: lesion on right ear HPI: Mathew Mendez is a 65 y.o. male Last seen in [facility] Dermatology: 01/14/2020 Here for evaluation of a non-healing lesion on the right mid helix present for at least 4 months. Previously treated with LN2 and has not gone away. Admits to poking at the lesion with a needle to relieve the swelling. Also states when he pokes it with a needle, fluid comes out. Complains of dry itchy skin on the back, arms and lower legs. Does not use moisturizer but states when he does use moisturizer it relieves the itching. Relevant Medical History: Yes/No Melanoma n NMSC y Procedure Screening Questions: ?Yes/No ?If Yes, details Defibrillator/Pacemaker No ?? Artificial Joints Yes Right knee Heart Valves No ?? Blood Thinners No ?? Prophylactic Antibiotics Yes ?? Best way to reach with results Phone Ok to leave message ?? Relevant Family History: Yes/No If yes, who (mom/dad/sibling/child) Melanoma n Medications: allopurinoL, amLODIPine, cyanocobalamin (Vitamin B-12), lansoprazole, lisinopriL, magnesium, and metoprolol succinate XL Allergies Allergen Reactions ??? Morphine Hives Review of Systems: - General: Feels well. - Skin: No other skin concerns. Examination: - Constitutional: Patient was alert, well-appearing and in no noticeable distress. - Skin exam: Focused skin examination of the right mid helix was normal with the exception of the findings listed below. Notable findings/Assessment/Plan: CNH v SCC - Right mid helix: eroded crusted papule - Joint decision to save biopsy today Shave biopsy: Location: right mid helix The patient's consent was obtained. Risk of infection, scarring, nerve damage, pigment change, numbness, incomplete removal, recurrence, bleeding, pain and uncommonly so, allergic reaction to anesthesia were all reviewed. Alcohol preparation was used. Anesthesia obtained with 1% lidocaine with epinephrine. A shave biopsy was obtained and the specimen was sent to pathology for histologic evaluation. Vaseline and bandaid were applied. Wound care was reviewed and written instructions were given. Xerosis - diffuse xerosis - Recommend sensitive skin care: Cerave cream/Vanicream/Aveeno daily moisturizer RTC: Return for pending pathology. Photo was taken and charted with patient's consent: Note initiated by DESMOND Barrios. DESMOND Barrios has performed the documentation for this encounter in the presence of and acting as a scribe for Dr. Hamlin. I performed the above scribed service and agree with the accuracy of the documentation in this encounter. Reviewed and signed by: Deb Hamlin MD Dermatology [facility] * Deb Hamlin MD - 04/25/2020 10:30 AM EST Faye, Please notify pt Pathology showed SCC, recommend Mohs surgery. -jbc Right mid helix, skin shave biopsy: - ??Squamous cell carcinoma, well differentiated, transected at the base * Faye Melchor LPN - 04/25/2020 10:30 AM EST Called and l/m for a return call. No details left since the answering machine was generic. * Faye Melchor LPN - 04/25/2020 10:30 AM EST Mathew returned a call and we discussed his results. He wishes to proceed with Mohs and will wait fora call. documented in this encounter Plan of Treatment Upcoming Encounters Date Type Department Care Team (Latest Contact Info) Description 01/02/2024 7:30 AM EDT Hospital En[place] [address] Lawrence Gar MD [facility] [place] [address] 01/02/2024 7:30 AM EDT - 01/02/2024 8:30 AM EDT [place] [address] Lawrence Gar MD [facility] [place] [address] EGD, UPPER GI ENDOSCOPY (WRVU 2.09) 11/17/2024 4:20 PM EDT Office [place] [address] Lawrence Gar MD [facility] [place] [address] Scheduled Procedures Name Priority Associated Diagnoses Date/Ti me EGD, UPPER GI ENDOSCOPY (WRVU 2.09) Sharma's esophagus with dysplasia 01/02/2024 7:30 AM EDT documented as of this encounter Procedures Procedure Name Priority Date/Time Associated Diagnosis Comments SPECIMEN TO PATHOLOGY Routine 04/25/2020 11:44 AM EST Neoplasm of uncertain behavior SURGICAL PATHOLOGY REPORT Routine 04/25/2020 11:32 AM EST documented in this encounter Results * Specimen to Pathology (04/25/2020 11:44 AM EST) AP Specimen 04/25/2020 11:4 4 AM EST 04/25/2020 3:29 PM EST Narrative [facility] - 04/25/2020 3:29 PM EST Specimen requisition ordered. ??Separate Pathology report to follow Resulting Agency Comment Spec In Lab Deb Hamlin MD PATHOLOGY/CYTOLOGY O JIMERAXIN [facility] [place] [address] * Surgical Pathology Report (04/25/2020 11:32 AM EST) Surgical Pathology Report [id number] ? Location: [facility] The signing pathologist has (i) examined the relevant preparation(s) for the specimen(s) and (ii) rendered or confirmed the diagnosis(es). . ?Surgical Pathology DIAGNOSIS Right mid helix, skin shave biopsy: - ??Squamous cell carcinoma, well differentiated, transected at the base Electronically signed by: ??Anthony HENDRICKS, PhD, Bob Verified: ??04/27/2020 ?Dermatopathol ogist Performed at: ??-[facility] [place], [place], [place] SPECIMEN(S) SUBMITTED A - right mid helix, skin shave biopsy (2) CLINICAL INFORMATION DDX: CNH vs. SCC-right mid helix: Eroded crusted papule SPECIMEN PROCESSING A - Labeled/Fixativ e: Patient demographics, formalin. Quantity/Size: Two, 0.3 x 0.2 x 0.1 cm and 0.5 x 0.4 x 0.1 cm. Tissue Description: Similar appearing irregular shaves of granular saunders-white skin smaller fragment is bisected and submitted in cassette A1; the larger is inked and bisected, submitted in A2. Sections/Proces sing: Entirely submitted in 2 cassettes labeled A1-A2. ??pps [facility] 04/25/2020 11:3 2 AM EST Deb Hamlin MD PATHOLOGY/CYTOLOGY O RDERABLES [facility] [place] [address] documented in this encounter Visit Diagnoses Diagnosis Xerosis of skin Other specified disease of sebaceous glands Neoplasm of uncertain behavior Neoplasm of uncertain behavior, site unspecified Sharma's esophagus with dysplasia Sharma's esophagus documented in this encounter Care Teams Swage Toolsetter Relationship Specialty Start Date End Date Jovani Wharton DO [address] [place] [address] [address] [place] [address] PCP - General Family Medicine 10/18/16 06/18/22 documented as of this encounter
--- OUTSIDE RECORDS SUMMARY | 2023-12-10 05:00 | XMS_ITS | Encounter Summary ---
Author Organization [facility] Address [facility] [place] [address] Care Team Providers Care Senior Policy Analyst Name Role Phone DioJovani franks Primary Care Provider Encounter Details Date Type Department Care Team (Latest Contact Info) Description 10/18/2016 8:30 AM EDT Office Visit Nephrology [place] [address] Jorge Gonzales MD [facility] [place] [address] CKD (chronic kidney disease) stage 3, GFR 30-59 ml/min (Primary Dx) Social History Tobacco Use Types Packs/Day Years Used Date Smoking Tobacco: Never Smokeless Tobacco: Never Sex and Gender Information Value Date Recorded Sex Assigned at Not on file Gender Identity Not on file Sexual Orientation Not on file documented as of this encounter Last Filed Vital Signs Vital Sign Reading Time Taken Comments Blood Pressure 142/82 10/18/2016 8:29 AM EDT Pulse 76 10/18/2016 8:29 AM EDT Temperature - - Respiratory Rate - - Oxygen Saturation - - Inhaled Oxygen Concentration - - Weight 72.1 kg (159 lb) 10/18/2016 8:29 AM EDT Height 167.6 cm (5' 6) 10/18/2016 8:29 AM EDT Body Mass Index 25.66 10/18/2016 8:29 AM EDT documented in this encounter Progress Notes * Jorge Gonzales MD - 10/18/2016 8:30 AM EDT The patient is seen for evaluation of chronic kidney disease. The patient is a 61-year-old man with a history of hypertension or many years. He had been treated with hydrochlorothiazide, metoprolol, and lisinopril. The patient was noted to have a creatinine of 2.24 mg/dL on October 03, 2016. In our system the patient had a creatinine less than 1 in 2013 on several occasions. More recently he's only had trace protein on his urinalysis. The patient's history is also notable for alcoholism and he's been abstinent for the past month. He's using naltrexone with success. The patient has a history of esophageal problems and had esophageal stretching in 1983. It sounds as if he had ulcers but not varices at that time. He's been on Prevacid acid for a long period of time related to his reflux type symptoms. In addition the patient smith es Advil 800 mg twice a day and has done this for a very long time. The patient otherwise denies any previous knowledge of renal problems. He's had no history of nephrolithiasis or hematuria. He's had no urinary infections. Past medical history also notable for hyperlipidemia, actinic keratosis. Past surgical history is notable for diverticulitis with a colostomy and then a takedown. 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 He has 4 boys are alive andwell. The patient does not smoke. He stopped drinking one month ago. Allergies patient has an intolerance of morphine Physical exam: .BP 142/82 Pulse 76 Ht 167.6 cm (5' 6) Wt 72.1 kg (159 lb) BMI 25.66 kg/m2 Skin with actinic changes, HEENT unremarkable, lungs clear, cardiac exam normal, abdomen with a well-healed incision midline, extremities without edema, neurologic exam intact, vascular exam notable for the absence of carotid abdominal and femoral bruits. Assessment and plan: The patient has significant renal impairment. I doubt this is related to his hypertension. He had a normal renal ultrasound done on 10/08/16. In the absence of smoking and bruits I doubt that a renal duplex would show any significant renal artery issue. Of note the patient has along-standing history of high-dose nonsteroidal anti-inflammatory use. I recommended that he stop the Advil and use Tylenol instead. This may have left him with some chronic renal damage that hopefully would stabilize if he stops this. Additionally he is at risk for renal insufficiency related to his proton pump inhibitor. His urinalysis today did not show any significant leukocytosis to suggest i nterstitial nephritis. We could consider renal biopsy if holding the lisinopril and decreasing the use of nonsteroidal anti-inflammatories does not resolve his renal issue. His blood pressure was 140 systolic off of lisinopril today. I think it would be reasonable to justfollow this for the present time. He did also mention that he has significant snoring according to his . It would be reasonable to work him up for sleep apnea as this could also aggravate his blood pressure. documented in this encounter Plan of Treatment Upcoming Encounters Date Type Department Care Team (Latest Contact Info) Description 01/02/2024 7:30 AM EDT Hospital Encounter [place] [address] Lawrence Gar MD [facility] DR [place] [address] 01/02/2024 7:30 AM EDT - 01/02/2024 8:30 AM EDT Surgery [place] [address] Lawrence Gar MD [facility] DR [place] [address] EGD, UPPER GI ENDOSCOPY (WRVU 2.09) 11/17/2024 4:20 PM EDT Office Visit [place] [address] Lawrence Gar MD [facility] DR [place] [address] Scheduled Procedures Name Priority Associated Diagnoses Date/Ti in EGD, UPPER GI ENDOSCOPY (WRVU 2.09) Sharma's esophagus with dysplasia 01/02/2024 7:30 AM EDT documented as of this encounter Procedures Procedure Name Priority Date/Time Associated Diagnosis Comments PTH Routine 10/18/2016 9:55 AM EDT CKD (chronic kidney disease) stage 3, GFR 30-59 ml/min HEMOGRAM STAT 10/18/2016 9:55 AM EDT CKD (chronic kidney disease) stage 3, GFR 30-59 ml/min DIFFERENTIAL, AUTOMATED STAT 10/18/2016 9:55 AM EDT CKD (chronic kidney disease) stage 3, GFR 30-59 ml/min CBC (WITH DIFF) STAT 10/18/2016 9:55 AM EDT CKD (chronic kidney disease) stage 3, GFR 30-59 ml/min PROTEIN ELECTROPHORESIS, SERUM Routine 10/18/2016 9:55 AM EDT CKD (chronic kidney disease) stage 3, GFR 30-59 ml/min BASIC METABOLIC PANEL (NON-FASTING) STAT 10/18/2016 9:55 AM EDT CKD (chronic kidney disease) stage 3, GFR 30-59 ml/min PROTEIN/CREATININE RATIO, URINE Routine 10/18/2016 8:26 AM EDT CKD (chronic kidney disease) stage 3, GFR 30-59 ml/min PROTEIN ELECTROPHORESIS, URINE, RANDOM Routine 10/18/2016 8:26 AM EDT CKD (chronic kidney disease) stage 3, GFR 30-59 ml/min documented in this encounter Results * (ABNORMAL) Differential, Automated (10/18/2016 9:55 AM EDT) Neutrophils % 65.3 % [facility] Neutr Abs (ANC) 2.98 1.70 - 6.10 x10(3)/mc L [facility] Lymphocytes % 17.9 % [facility] Lymphocytes Abs 0.8(L) 0.9 - 3.2 x10(3)/[facility] Monocytes % 12.0 % [facility] Monocyte Abs 0.6 0.3 - 0.9 x10(3)/[facility] Eosinophils % 3.5 % [facility] Eosinophils Abs 0.2 0.0 - 0.4 x10(3)/[facility] Basophils % 1.1 % [facility] Basophils Abs 0.0 0.0 - 0.1 x10(3)/[facility] Immature Gran % 0.20 % [facility] Comment: Immature granulocytes(IG's)percentage and absolute count will include metamyelocytes, myelocytes, and promyelocytes. Blood smears from CBCs yielding IG's will be scanned manually for concordance. If this scan disagrees with the automated IG or if promyelocytes are noted, a manual differential will be performed. Raya Gran Abs 0.01 0.00 - 0.04 x10(3)/[facility] Blood specimen (specimen) 10/18/2016 9:55 AM EDT 10/18/2016 10:07 AM EDT Narrative Resulting Agency Comment Spec In Lab Jorge Gonzales MD HEMATOLOGY ORDERABL ES [facility] [place] [address] * (ABNORMAL) Hemogram (10/18/2016 9:55 AM EDT) WBC 4.6 4.0 - 9.5 x10(3)/[facility] RBC 3.78(L) 4.58 - 5.54 x10(6)/[facility] Hemoglobin 11.7(L) 13.7 - 16.5 gm/dL [facility] Hematocrit 34.0(L) 40.5 - 48.5 % [facility] MCV 89.9 82.9 - 93.[address] [facility] MCH 31.0 27.5 - 32.[address] [facility] MCHC 34.4 32.0 - 35.7 gm/dL [facility] Platelets 192 145 - 357 x10(3)/[facility] RDWSD 40.0 36.0 - 45.[address] [facility] RDWCV 12.3 11.4 - 13.8 % [facility] MPV 11.2 7.6 - 12.9 [facility] nRBC % Auto 0.0 % [facility] nRBC Abs Auto 0.000 0.000 - 0.000 x10(3)/[facility] Blood specimen (specimen) 10/18/2016 9:55 AM EDT 10/18/2016 10:07 AM EDT Narrative Resulting Agency Comment Spec In Lab Jorge Gonzales MD HEMATOLOGY ORDERABL ES Performing Organization Address City/[facility]/ZIP Co de Phone Number [facility] [place] [address] * PTH (10/18/2016 9:55 AM EDT) Pathologist [facility] PTH 51 15 - 65 pg/mL [facility] Blood specimen (specimen) 10/18/2016 9:55 AM EDT 10/18/2016 10:06 AM EDT Narrative Resulting Agency Comment Spec In Lab Jorge Gonzales MD CHEMISTRY ORDERABLE S [facility] [place] [address] * Protein Electrophoresis, serum (10/18/2016 9:55 AM EDT) Total Prot Elec 7.0 6.1 - 8.0 gm/dL [facility] Albumin Elect 4.59 3.60 - 6.00 gm/dL [facility] Alpha1-Globul in 0.18 0.10 - 0.30 gm/dL [facility] Alpha2-Globul in 0.76 0.40 - 0.90 gm/dL [facility] Beta Globulin 0.69 0.50 - 1.00 gm/dL [facility] Gamma Globulin 0.78 0.50 - 1.30 gm/dL [facility] M1 Band None Detected [facility] Blood specimen (specimen) 10/18/2016 9:55 AM EDT 10/18/2016 10:07 AM EDT Narrative Resulting Agency Comment Spec In Lab Jorge Gonzales MD CHEMISTRY ORDERABLE S [facility] [place] [address] * (ABNORMAL) Basic Metabolic Panel (non-fasting) (10/18/2016 9:55 AM EDT) Glucose Lvl 90 65 - 199 mg/dL [facility] Comment:Diabetes: >=200 mg/d L plus symptoms BUN 39(H) 10 - 20 mg/dL [facility] Creatinine 1.86(H) 0.80 - 1.50 mg/dL [facility] Comment: Please note that the pediatric reference intervals supplied above were not validated at [facility]. Results from pediatric patients should be interpreted in conjunction to the patient's age, height and muscle mass. Sodium 135 135 - 145 mmol/L [facility] Potassium 4.2 3.5 - 5.0 mmol/L [facility] Comment: Please note: ??Patients with WBC >100,000 may have falsely elevated Potassium levels. ??For accurate Potassium quantification in these patients send serum separator tube (gold top) for subsequent determinations. ??Contact the Clinical Chemistry Laboratory if there are any questions. Chloride 97(L) 98 - 107 mmol/L [facility] CO2 21(L) 22 - 31 mmol/L [facility] Anion Gap 17(H) 5 - 15 mmol/L [facility] Calcium 9.0 8.5 - 10.5 mg/dL [facility] Estimated GFR 37(L) >=60 [facility] Comment: This estimated GFR (eGFR) value was calculated using the MDRD equation which has been validated on patients between the ages of 18 and 70. The MDRD should not be used to assess kidney function in patients < 18 years of age or in patients with extremes of body mass, or in patients with acute kidney failure. This value should be multiplied by 1.2 for patients. For further information please copy and paste the following links into your internet browser. http://[employer]/DHnkdep http://[employer]/DHMCnkf Blood specimen (specimen) 10/18/2016 9:55 AM EDT 10/18/2016 10:07 AM EDT Narrative Resulting Agency Comment Spec In Lab Jorge Gonzales MD CHEMISTRY ORDERABLE S Performing Organization Address [facility] Co de Phone Number [facility] [place] [address] * (ABNORMAL) Protein/Creatinine Ratio, urine (10/18/2016 8:26 AM EDT) U Creatinine 70 mg/dL [facility] U Protein Ran 20(H) 0 - 12 mg/dL [facility] Prot/Cre Ratio 0.[address] [facility] Urine specimen (specimen) 10/18/2016 8:26 AM EDT 10/18/2016 11:35 AM EDT Narrative Resulting Agency Comment Spec In Lab Jorge Gonzales MD URINE ORDERABLES Performing Organization Address City/[facility]/ZIP Co de Phone Number [facility] [place] [address] * (ABNORMAL) Protein Electrophoresis, urine, random (10/18/2016 8:26 AM EDT) U Protein Ran 20(H) 0 - 12 mg/dL [facility] U Albumin 76 % total [facility] U Globulin 24 % total [facility] U M Band None Detected [facility] U PEP Comments See Note [facility] Comment: There is no evidence of clonal free light chains in this patient's urine sample. Urine specimen (specimen) 10/18/2016 8:26 AM EDT 10/18/2016 11:35 AM EDT Narrative Resulting Agency Comment Spec In Lab oJrge Gonzales MD URINE ORDERABLES [facility] [place] [address] documented in this encounter Visit Diagnoses Diagnosis CKD (chronic kidney disease) stage 3, GFR 30-59 ml/min- Primary Chronic kidney disease, Stage III (moderate) Sharma's esophagus with dysplasia Sharma's esophagus documented in this encounter Care Teams Senior Policy Analyst Relationship Specialty Start Date End Date Jovani Wharton DO [address] [place] [address] PCP - General Family Medicine 10/18/16 06/18/22 documented as of this encounter
--- OUTSIDE RECORDS SUMMARY | 2023-12-10 05:00 | XMS_ITS | Encounter Summary ---
[place] [address] Care Team Providers Care Blasting Miner Name Role Phone Jovani Wharton DO Primary Care Provider Encounter Details Date Type Department Care Team (Late st Contact Info) Description 09/22/2020 Tele[place] [address] Lorenza Solis Social History Tobacco Use Types Packs/Day Years Used Date Smoking Tobacco: Never Smokeless Tobacco: Never Sex and Gender Information Value Date Recorded Sex Assigned at Not on file Gender Identity Not on file Sexual Orientation Not on file documented as of this encounter Miscellaneous Notes * Telephone Encounter - Lorenza Solis - 09/22/2020 11:46 AM EDT Mathew Mendez [id number] Diagnosis/Indication: pancreatitis/crc 1. Have you ever had a/an Upper Endoscopy & Colonoscopy before? Yes: Date egd [place] 2 yrs ago, [place] more than 10 yrs If yes, did you have any problems with the procedure? No What type of sedation was used: None 2. Do you take any blood thinners or have you been diagnosed with a bleeding disorder that increases your risk of bleeding with procedures? No 3. Do you have a Pacemaker or Defibrillator device? No 4. Are you a diabetic? No 5. Do you have any Allergies to Eggs, Latex or Medications? No 6. Do you take any Oral Iron Supplements (Including multi-vitamins)? No 7. Do you have a history of three or more abdominal surgeries? No 8. Have you had a problem with sedation or anesthesia? No 9. Do you use a c-pap machine or oxygen tank? Neither 10. Do you take prescription narcotic pain medications, including suboxone or methodone? No 11. Do you have a preference regarding the gender of your provider? Yes: Male Cong 12. Is there any other information you would like to us to note for the provider and nursing team who will perform your case? No 13. Say to patient: You must have a responsible republican who will drive you to your procedure, stay [place] for the entire duration of your procedure, and drive you home from your procedure? *Please Verify the height and weight, and adjust if height and/or weight have changed* Estimated body mass index is 25.99 kg/m?? as calculated from the following: Height as of 04/20/20: 167.6 cm (5' 6). Weight as of 04/20/20: 73 kg (161 lb). Age:65 y.o. documented in this encounter Plan of Treatment Upcoming Encounters Date Type Department Care Team (Latest Contact Info) Description 01/02/2024 7:30 AM EDT Hospital En[place] [address] Lawrence Gar MD [facility] [address] [place] [address] 01/02/2024 7:30 AM EDT - 01/02/2024 8:30 AM EDT [place] [address] Lawrence Gar MD [facility] [address] [place] [address] EGD, UPPER GI ENDOSCOPY (WRVU 2.09) 11/17/2024 4:20 PM EDT Office [place] [address] Lawrence Gar MD [facility] [address] [place] [address] Scheduled Procedures Name Priority Associated Diagnoses Date/Ti me EGD, UPPER GI ENDOSCOPY (WRVU 2.09) Sharma's esophagus with dysplasia 01/02/2024 7:30 AM EDT documented as of this encounter Visit Diagnoses Not on filedocumented in this encounter Care Teams Blasting Miner Relationship Specialty Start Date End Date Jovani Wharton DO [address] [place] [address] PCP - General Family Medicine 10/18/16 06/18/22 documented as of this encounter
--- OUTSIDE RECORDS SUMMARY | 2023-12-10 05:00 | XMS_ITS | Encounter Summary ---
Author Organization [facility] [place] [address] Care Team Providers Care Manager Emergency Department Name Role Phone DioJovani franks Primary Care Provider Encounter Details Date Type Department Care Team (Late st Contact Info) Description 08/22/2020 Telephone [place] [address] Cyntiha Kim Social History Tobacco Use Types Packs/Day Years Used Date Smoking Tobacco: Never Smokeless Tobacco: Never Sex and Gender Information Value Date Recorded Sex Assigned at Not on file Gender Identity Not on file Sexual Orientation Not on file documented as of this encounter Miscellaneous Notes * Telephone Encounter - Cynthia Kim - 08/22/2020 10:48 AM EDT Called pt to let him know that I have his order and that I am working on it and once I find a spot for him I will call him and get him scheduled. documented in this encounter Plan of Treatment Upcoming Encounters Date Type Department Care Team (Latest Contact Info) Description 01/02/2024 7:30 AM EDT Hospital En[place] [address] Lawrence Gar MD [facility] [address] [place] [address] 01/02/2024 7:30 AM EDT - 01/02/2024 8:30 AM EDT [place] [address] Lawrence Gar MD [facility] [address] [place] [address] EGD, UPPER GI ENDOSCOPY (WRVU 2.09) 11/17/2024 4:20 PM EDT Office [place] [address] Lawrence Gar MD [facility] [place] [address] Scheduled Procedures Name Priority Associated Diagnoses Date/Ti me EGD, UPPER GI ENDOSCOPY (WRVU 2.09) Sharma's esophagus with dysplasia 01/02/2024 7:30 AM EDT documented as of this encounter Visit Diagnoses Not on filedocumented in this encounter Care Teams Manager Emergency Department Relationship Specialty Start Date End Date Jovani Wharton DO [address] [place] [address] PCP - General Family Medicine 10/18/16 06/18/22 documented as of this encounter
--- OUTSIDE RECORDS SUMMARY | 2023-12-10 05:00 | XMS_ITS | Encounter Summary ---
Author Organization [facility] Address [facility] [place] [address] Care Team Providers Care Rehabilitation Assistant Name Role Phone DioJovani franks Primary Care Provider Reason for Visit * Consultation (Routine) - Closed Specialty Diagnoses / Procedures Referred By Devaughn bobo Referred To Contact Dermatology Diagnoses SCC (squamous cell carcinoma) Deb Hamlin MD [facility] [address] [place] [address] Dominguez Lopez MD [facility] [address] [place] [address] Referral ID Status Reason Start Date Expiration Date V isits Requested Visits Authorized [id number] Closed Consult, Test & Treat 04/29/2020 04/29/2021 1 1 Encounter Details Date Type Department Care Team (Latest Contact Info) Description 06/14/2020 11:00 AM EST Procedure visit Dermatology at [facility] [address] [place] [address] Dominguez Lopez MD [facility] [address] [place] [address] 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 Social History Tobacco Use Types Packs/Day Years Used Date Smoking Tobacco: Never Smokeless Tobacco: Never Sex and Gender Information Value Date Recorded Sex Assigned at Not on file Gender Identity Not on file Sexual Orientation Not on file documented as of this encounter Last Filed Vital Signs Vital Sign Reading Time Taken Comments Blood Pressure 130/89 06/14/2020 11:22 AM EST Pulse 75 06/14/2020 11:22 AM EST Temperature - - Respiratory Rate - - Oxygen Saturation - - Inhaled Oxygen Concentration - - Weight - - Height - - Body Mass Index - - documented in this encounter Patient Instructions * Patient Instructions* Milvia Mancilla RN - 06/14/2020 11:00 AM EST Your staff Mohs surgeon today was Dominguez Lopez MD, PhD. FLAP CLOSURE Your wound(s) was repaired by a flap closure. A flap closure is rearrangement of skin tissue. A flap is performed when the area has too much tension, or when a simple side to side closure cannot be performed, or when a flap would lead to better cosmetic outcome with a flap. Your flap may be closed with all absorbable sutures, sutures that need to be removed or a combination of both. You will be instructed upon discharge if a suture removal appointment is necessary. Caring for a flap is very similar to caring for regular side to side stitches, except more caution should be used when cleaning the incisions as some flaps can be delicate. Instructions for wound care are below. Please keep in mind these are general guidelines. When in doubt, or if you have more specific questions, please call us. Keep below as a reference while caring for your wound(s): Wound Care ??? Gently remove your initial bandage (after 48 hours from surgery). It is normal to have swellingand bruising. ??? Begin wound care as below. ??? If your initial bandage only stayed on for 24 hours (for example, falls off sooner), this is okay. Resume your wound care and bandaging instructions as below. ??? Change your bandage once a day (and whenever it becomes wet or soaks through) continue for 7 days. ??? For bandage changes: o Wash hands with soap and water, or use gloves that you can purchase at a local pharmacy or drug store. o Clean the surgical area with cotton-tipped swabs or soft gauze dipped in soapy water (recommend liquid soap in clean room temperature water). Roll the cotton swab over the incision with soapy water, then with plain water, and then gently pat dry. Do not scrub the area with a washcloth. Do not putdirect shower water pressure onto your wound. Do not pick off any scabs. It is okay to allow soapy w ater to run over your wound in the shower, however. o If you cannot remove any bloody or crusted areas, you may soak the area with wet gauze first for 15 to 20 minutes to help soften it o Pat the area dry with clean gauze or cotton swabs. Do not rub. o Use a cotton swab to apply a generous layer of petrolatum over the incision lines and any open-wound areas. o Make sure your tube or jar of petrolatum is new or unused to prevent prior contamination from entering your wound. Avoid double dipping. o After applying petrolatum, use a clean nonstick gauze or other nonstick dressing, such as Telfa. This may be purchased over the counter at a drug store. Do not use regular gauze as it will stick toyour wound and can peel off healing skin with bandage changes. o Secure the bandage with paper tape or a bandage. Band-aids are okay, but typically have more adhesive that can irritate the skin compared to paper tape. This can be purchased at a drug store. o Continue this wound care daily for 7 days. If any areas of the flap were left open to heal, continue to apply Vaseline until healed. o Keep in mind that if you do not want to use a bandage at all due to difficulty, irritation of skin, cost, or inconvenience --- you can certainly avoid bandages altogether. However, it is imperativethat you continue with topical petrolatum (plain, fragrance-free). This may need to be applied several times daily if it gets wiped off, washed off, or dries out. Things to purchase for wound care: -Nonstick gauze -A tube or tub of petrolatum jelly (fragrance-free, no dye, not lotion) -paper tape -cotton swabs -gloves (optional) -Dial or other antibacterial liquid soap After Surgery 1. Avoid tobacco, smoking/vapors, and cannabis (marijuana) for at least 3 weeks after your surgery.Smoking impairs healing and leads to worse scarring. Even cutting back on tobacco is helpful if youcannot abstain completely. 2. Limit alcohol intake to one drink per day over the next 3 days. 3. Do not participate in athletic activities for 5-7 days. Athletic activity is a relative term, but this is considered to be anything that could potentially raise your heartrate or blood pressure. Elevating your heart rate and blood pressure can increase risks of swelling, bleeding, wound opening,or lead to worse scarring. Walking at a leisurely pace is fine for most people, but not if you are going walking for the purpose of exercise. 4. Do not lift anything heavier than 10 pounds until your sutures are removed. 5. Some medical physics researcher may need to be delayed or delegated such as vacuuming, mowing the lawn, snow shoveling, or caring for young children that need to be carried/lifted. Working any major muscle groups increases your heart rate and can increasing bleeding. 6. Avoid swimming, hot tubs, and direct water pressure for 3 weeks after surgery. You may shower once your initial bandage comes off in 48 hours, however. 7. Avoid antibiotic ointments such as triple [...] 2 months. 10. Your wound will appear completely healed soon after sutures are removed (about 1 week), but incisions can remain bright red for several weeks. Then the scarring and healing process continues under the skin for 6 months up to 2 years. The scar may become less red, less firm, and more subtle during this time but the rate of improvement varies depending on the person. Most redness, discoloration, bumpiness resolves by 6 months. 11. Keep your follow-up appointments and make sure to continue to have your skin checked, as often as is recommended by your fly tier, for new skin cancers. This is once per year for most patients. 12. Your can expect your scar to be red for several weeks with gradual fading of the redness. The scar will also be raised and lumpy until the dissolvable sutures under the skin get absorbed by your body which can take 3-4 months. The scar will flatten eventually. 13. Occasionally, about 20% of the time, on the face, the stitches under the skin can spit out ofthe incision to the surface. It can start out looking like a pimple or blemish directly on your incision. Sometimes it can look like a small mini infection so please let us know before you [...] your incision with a bandage when outdoors, or wearing SPF 30 to 50 sunscreen (broad spectrum). 15. Sometimes after your sutures are removed, your incision may still be healing for 1 more week. Because of this, avoid make-up and sunscreen until approximately 2 weeks after surgery, or sooner if your skin edges look completely sealed. 16. Flaps may sometimes thicken or become firm several weeks after surgery. This is expected in some types of flaps and in certain locations on the face. This is called hypertrophy. If this occurs, at your wound check, you may need small amounts of medicine injected into your flap to help it softenor thin. This will be determined at your follow-up visit. 17. Flaps and skin surgery in general can lead to mild sensation loss (numbness) in the area of surgery. Massage starting at 8 weeks after surgery can help. 18. Bruising. It is very common to have bruising in swelling in any area of the face, even in areasthat are distant from where we did surgery. This is especially common 24 to 48 hours after surgery when fluid and swelling shifts around in the face. For example, surgery on the forehead, temples, orcheeks often leads to eyelid swelling of both eyes, black eyes, or dark purple bruising. This is expected in most patients and will gradually resolve. However, if you have severe pain not resolvingwith over the counter medicine, please call us. You can use ice packs or a bag of frozen peas for 15-20 minutes 3-4 times daily to areas of swelling on the face; use caution not to put the icy item di rectly on your incision, directly onto your skin as this can damage skin, and avoid prolonged use more than 20 minutes. The best way to use ice packs is over the bandage, or a light cloth/paper towelbetween the ice pack and your skin. You can ice for as many days as needed until swelling has resolved. Antibiotics: If you were given antibiotic prescription, it is important to start them the evening of your surgery date. Most patients do not need antibiotics after surgery. For pain: Most patients of different ages do not require pain medications. If you do feel soreness or pain, start by taking over the counter extra strength acetaminophen (up to 3000 mg in a 24 hour period). Generally, we like you to avoid NSAIDS (non-steroid anti-inflammatory drugs such as ibuprofen) for thefirst 48 hours after surgery as this can increase risk of bleeding. However, if acetaminophen is not helping with pain, you can alternate acetaminophen with iburpofen (ibuprofen 400 mg every 4 hours.) Ice packs over your bandage without getting your bandage wet can also help with pain and swelling,for up to 20 minutes at a time (20 minutes off between icing sessions). Frozen peas work well as ice packs. THIS [...] it. If after hours, please call the four slide machine operator or [phone] and ask for the fly tier on-call. If you have any non-urgent questions or concerns, please feel free to call my office or contact me through our patient portal, [employer], at [email or web address] How to contact us during business hours Dermatology at [facility] [address]: Mohs scheduling or Mohs follow-up appointments: [phone] documented in this encounter Progress Notes * Dominguez Lopez MD - 06/14/2020 11:00 AM EST Images from the original note were not included. Summary of Procedure(s): Site: right mid helix Tumor Type: Basal Cell Carcinoma, invasive, moderately differentiated Stages to clear tumor: 2 Repair: Postauricular interpolation flap Images: The patient was asked to call with any issues and is aware that I am available 17/12 should questions arise. Dominguez Lopez MD PhD Mohs Micrographic Surgery and Dermatologic Oncology Department of Dermatology Please note that I have reviewed the preoperative checklist from today's nursing visit including relevant social history and medications. I have reviewed the preoperative photos if available and the biopsy report. VITAL SIGNS: BP 130/89 (BP Location (NBP): Left arm, Patient Position: Sitting, BP Cuff Sizes: Adult (25-34 cm)) Pulse 75 PHYSICAL EXAMINATION: General: patient is awake, alert, oriented and in no acute distress. Skin: Focused examination of surgical site(s) performed which shows a well healed biopsy site with overlying nodularity and surrounding hyperkeratosis. PHYSICIAN REVIEW OF REPORTS, RECORDS, IMAGES: 1) The accompanying pathology report(s) associated with aforementioned biopsy slide(s) were/was also reviewed. Assessment: Mathew Mendez is a 65 y.o. male presenting for: 1. 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 Plan: 1. Findings from the biopsy report, today's clinical exam, and other pertinent details [...] and follow up with his or her fly tier or other skin provider. 6. Discussed avoiding direct sun exposure to scars for best cosmetic result. Note initiated by LINDA Rob CMA has performed the documentation for this encounter in the presence of and acting as a scribe for Dr. Hugo Suarez performed the above scribed service and agree with the accuracy of the documentation in this encounter. Reviewed and signed by: Dominguez Lopez Dermatology [facility] * Dominguez Lopez MD - 06/14/2020 11:00 AM EST Mohs micrographic Surgery Operative Report Patient name: Mathew Mendez : 1955 Date: 06/15/2020 Staff Surgeon: Dominguez Lopez MD PhD Nursing/Machine Operator Hay Stacker(s): Milvia Mancilla RN, Mary LoyaReyes COLEN, Serina Taylor CMA, Alan Jaffe CMA, Analia Mendoza CMA Custom Designer (s): Elena Barriga Pre-operative diagnosis: Squamous Cell Carcinoma, invasive, well differentiated Post-operative diagnosis: Squamous Cell Carcinoma, invasive, well differentiated Location/Site: right mid helix Procedure: Mohs micrographic surgery Indication(s) for Mohs micrographic surgery: Anatomic location for tissue conservation Stages: 2 Preoperative size of tumor: 1.7 x 0.8 cm Stage I The nature and purpose [...] The site was confirmed with the patient/authorized plastic products sales representative/referring physician and/or a photograph form time of [...] excised tissue was oriented and divided into 1 sections, chromacoded, and submitted for frozen sections. The patient tolerated the procedure well and without complications. On microscopic evaluation of the frozen sections, residual tumor was identified as squamous cell carcinoma, invasive, moderately-differentiated on section A1 (see section number on map). Stage II [...] Depth of excision cartilage Final defect size: 3.2 x 2.0 cm Repair Report (Flap) Patient name: Mathew Mendez Staff Surgeon: Dominguez Lopez MD PhD Yard Engineer(s): same as above support assistant: Serina Taylor CMA Date: 06/15/2020 Clinical Diagnosis: skin and soft tissue defect status post Mohs micrographic surgery Location/Site: Right mid helix Indication: repair of wound with buddhism of anatomy/function Defect size to be repaired: 3.2 x 2.0 cm Procedure: postauricular interpolation flap repair (tissue rearrangement) Final flap size: 4.0 x 3.0 cm 2 Procedure Details: Due to the size and location of the defect resulting from the complete removal of the tumor, the postoperative risk of hemorrhage, infection, and the possibility of serious deformity from scarring, and in order to restore proper function and prevent loss of function, the defect was closed with an advancement flap. The nature and purpose of the procedure, associated risks, possible consequences, complications andalternative methods of treatment were explained to the patient in detail. An informed consent was obtained. Local anesthesia was obtained with a solution of 1-% lidocaine with 1:100,000 epinephrine. The surgical site was prepped and draped in the usual sterile manner. Any beveled edges of the defect were repaired with a scalpel blade. The flap was created by making incisions along postauricular scalp. The flap and the wound edges were undermined, and hemostasis was obtained with electrocoagulation. The flap was advanced onto the defect and sewn into place, a pedicle was left in place connecting the ear to the postauricular scalp. The skin edges were closed using 5.0 Monocryl dermal/subcutaneous sutures and 5.0 Prolene skin sutures. Final flap size: 4.0 x 3.0 cm2. Estimated blood loss: Minimal. Complications: None. Wound care: Routine. Follow up for wound check in 6 days and suture removal in 9 days. Plan for pedicle division in 3 weeks. The patient was discharged in good condition. Total local anesthesia with 1% lidocaine with 1:100,000 epinephrine used: 6 cc Total local with 0.25% bupivacaine with 1:100,000 epinephrine used: 6 cc Post-operative medications: Keflex 500 mg by mouth twice daily x 7 days Dominguez Lopez MD PhD Mohs Micrographic Surgery and Dermatologic Oncology Department of Dermatology [address] [place] [address] Note initiated by Serina Taylor CMA. Serina Taylor CMA has performed the documentation for this encounter in the presence of and acting as a scribe for Dr. Hugo Suarez performed the above scribed service and agree with the accuracy of the documentation in this encounter. Reviewed and signed by: Dominguez Lopez Dermatology [facility] documented in this encounter Plan of Treatment Upcoming Encounters Date Type Department Care Team (Latest Contact Info) Description 01/02/2024 7:30 AM EDT Hospital En[place] [address] Lawrence Gar MD [facility] [place] [address] 01/02/2024 7:30 AM EDT - 01/02/2024 8:30 AM EDT [place] [address] Lawrence Gar MD [facility] [place] [address] EGD, UPPER GI ENDOSCOPY (WRVU 2.09) 11/17/2024 4:20 PM EDT Office [place] [address] Lawrence Gar MD [facility] 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
--- OUTSIDE RECORDS SUMMARY | 2023-12-10 05:00 | XMS_ITS | Encounter Summary ---
Author Organization [facility] Address [facility] [place] [address] Care Team Providers Care Selling Manager Name Role Phone Jovani Wharton DO Primary Care Provider [phone] Encounter Details Date Type Department Care Team (Late st Contact Info) Description 01/17/2021 2:20 PM EDT Office [place] [address] Lawrence Gar MD [facility] DR [place] [address] Alcohol-induced chronic pancreatitis Social History Tobacco Use [...] Sign Reading Time Taken Comments Blood Pressure 119/78 01/17/2021 2:16 PM EDT Pulse 77 01/17/2021 2:16 PM EDT Temperature - - Respiratory Rate - - Oxygen Saturation - - Inhaled Oxygen Concentration - - Weight 73.8 kg (162 lb 9.6 oz) 01/17/2021 2:16 P M EDT Height - - Body Mass Index 26.24 10/20/2020 12:28 PM EDT documented in this encounter Progress Notes * Lawrence Gar MD - 01/17/2021 2:20 PM EDT Problem List: #Acute on chronic pancreatitis-likely ETOH [...] with normal biliary tree. #GERD and Sharma's esophagus # Colon polyps #Diverticulitis-s/p partial colectomy HPI Comments: Returns for f/up of pancreatitis and recent upper EUS and colonoscopy 10/20/20: EUS: - Short segment Sharma's esophagus-s/p biopsy of the GE junction as well as mid-esophagus to rule out EOE. - Large hiatal hernia with J-shaped stomach. - Normal duodenum. - Lobularity and hyperechoic strands and foci in the head and neck of pancreas suggestive of chronic pancreatitis. - 7 mm stone in the gallbladder with normal biliary tree. - Abnormal liver echotexture consistent with fatty liver disease. Colonoscopy: - The examined portion of the ileum was normal. - One 12 mm polyp in the cecum, removed piecemeal using a cold snare. Resected and retrieved. - 4 polyps <5 mm (ascending x 1, transverse x 2, descending x 1) s/p resection. - Patent end-to-side colo-colonic anastomosis, characterized by healthy appearing mucosa. - Otherwise normal. Pathology: DIAGNOSIS A - GE junction biopsies r/o Barretts, biopsy: - Squamocolumnar junctional mucosa with intestinal metaplasia, negative for dysplasia (see Discussion). B - Mid esophagus biopsies r/o EOE, biopsy: - Esophageal squamous mucosa, within normal limits. C - Cecal polyps, resection: - Fragments of tubulovillous adenoma(s). D - Transverse colon polyp, resection: - Tubular adenoma. E - Descending colon polyp, resection: - Fragments of tubular adenoma. Since his endoscopies as shown above, he states that he feels well and has had near complete resolution of all his GI symptoms. He no longer has abdominal discomfort or bloating like he had previously. In fact, he discontinued Creon as he felt it was no longer needed. Overall he is very satisfied with his current health. Although he has been abstinent from alcohol, he admits that he started drinking again earlier this summer but quickly realized how poorly it made him feel and he actually went to the hospital where they helped him detox. Since then he has again remained abstinent with the help and support of family, friends and AA. 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 While he does have some help from family members, he takes a lot of the work himself. Although he has had offers to sell his land, he has decided to keep farm in his family. Current Outpatient Medications on File Prior to Visit Medication Sig Dispense Refill ??? omeprazole (PriLOSEC) 20 mg Capsule, Delayed Release(E.C.) Take by mouth. ??? magnesium 250 mg Tablet Take by [...] 100 mg by mouth daily. 0 ??? amoxicillin (Amoxil) 500 mg Capsule TAKE FOUR CAPSULES BY MOUTH 1 HOUR PRIOR TO VISIT ??? naltrexone (Depade) 50 mg Tablet TAKE 1 TABLET BY MOUTH DAILY ??? triamcinolone (KENALOG) 0.1 % Ointment Apply to affected areas on ankles twice daily x 2 weeks,then reduce to once daily x 2 weeks. For recurrences, okay to use up to 14 days total per month (Patient not taking: Reported on 01/17/2021) 45 g 3 ??? fluorouraciL (EFUDEX) 5 % Cream Apply to the ears twice daily x 3 weeks (Patient not taking: Reported on 01/17/2021) 40 g 0 ??? yolawq-jsjwzdgb-fjfywev DR (Creon 6) 6,000-19,000 -30,000 unit Capsule, Delayed Release(E.C.) Take 6.615 capsules by mouth. ??? cephALEXin (Keflex) 500 mg Capsule Begin taking evening prior to flap takedown. Take one capsule PO BID x 7 days. (Patient not taking: Reported on 08/09/2020) 14 capsule 0 ??? cephALEXin (KEFLEX) 500 mg Tablet One tablet by mouth twice daily for 7 days (Patient not taking: Reported on 07/04/2020) 14 tablet 0 ??? lansoprazole (PREVACID) 30 mg Capsule, Delayed Release(E.C.) Take 30 mg by mouth daily. 0 No current facility-administered medications on file prior [...] for the past 24 hrs: Pulse BP 01/17/21 1416 77 119/78 Constitutional: Appears well-developed and well-nourished. Eyes: No scleral icterus. remainder of exam deferred Assessment and Plan: Clinically improved alcohol induced pancreatitis. He also has GERD and Sharma's esophagus as well as colonic polyps. Plan: I strongly encouraged him to remain abstinent from alcohol and if he does so I expect he willcontinue to feel well from a GI standpoint. He no longer needs to take Creon as long as he remains asymptomatic. I mentioned that we will plan a follow-up upper and lower endoscopy in 3 years. I willalso plan to see him in follow-up in 1 year or sooner as needed should he have recurrent symptoms or pancreatitis. Most of this 20 minute visit spent in discussion and coordination of care regarding pancreatitis. Lawrence Gar MD fitter's assistant Director, GI Endoscopy Section of Gastroenterology [place] [address] Cc:Jovani KeenickDO [address] [place] [address] [place] [address] documented in this encounter Plan of Treatment Upcoming Encounters Date Type Department Care Team (Latest Contact Info) Description 01/02/2024 7:30 AM EDT Hospital Encounter Gastroenterology at [place] [phone] Lawrence Gar MD [facility] DR [place]STR[place] [address] 01/02/2024 7:30 AM EDT - 01/02/2024 8:30 AM EDT Surgery [place] [address] Lawrence Gar MD [facility] DR [place] [address] EGD, UPPER GI ENDOSCOPY (WRVU 2.09) 11/17/2024 4:20 PM EDT Office Visit Gastroenterology at [place] [phone] Lawrence Gar MD [facility] DR [place] [address] Scheduled Procedures Name Priority Associated Diagnoses Date/Ti nd EGD, UPPER GI ENDOSCOPY (WRVU 2.09) Sharma's esophagus with dysplasia 01/02/2024 7:30 AM EDT documented as of this encounter Visit Diagnoses Diagnosis Alcohol-induced chronic pancreatitis Chronic pancreatitis Sharma's esophagus with dysplasia Sharma's esophagus documented in this encounter Care Teams Selling Manager Relationship Specialty Start Date End Date DioJovani franks [address] [address] [place] [address] PCP - General Family Medicine 10/18/16 06/18/22 documented as of this encounter
--- OUTSIDE RECORDS SUMMARY | 2023-12-10 05:00 | XMS_ITS | Encounter Summary ---
Author Organization [facility] [place] [address] Care Team Providers Care Check Scaler Name Role Phone Dio, Jovani MCCAIN Primary Care Provider Encounter Details Date Type Department Care Team (Late st Contact Info) Description 10/20/2020 1:00 PM EDT - 10/20/2020 2:30 PM EDT [place] [address] Lawrence Gar MD [facility] DR [place] [address] EGD WITH BIOPSY (WRVU 2.39) Social History Tobacco Use Types Packs/Day Years [...] Sign Reading Time Taken Comments Blood Pressure 143/87 10/20/2020 12:28 PM EDT Pulse 82 10/20/2020 12:28 PM EDT Temperature 36.3 ??C (97.3 ??F) 10/20/2020 12:28 PM E DT Respiratory Rate - - Oxygen Saturation 99% 10/20/2020 12:28 PM EDT Inhaled Oxygen Concentration - - [...] the day after the procedure, use an zlzk-bdw-yqehkir spray to numb your throat. Sucking on [...] occurs, please contact your Doctor. Please call [phone] before 8pm Mon-Fri with problems, questions or concerns. If you call after 8pm or on weekends, call the Hospital at [phone] and ask to speak to the Consulting Utility Forester salon customer experience specialist and the baker operator automatic will contact that person for you. When should you call for help? Call 120 anytime you think you may need emergency [...] any problems. Where can you learn more? [facility] View your After Visit Summary and more online at [email or web address] If you would like to provide feedback about your hospital experience, please call the Office of Patient and Family Relations at . If you have received this After Visit Summary in error, please immediately return it in person to the department, or notify the - Privacy Office by calling toll free at between the hours of 8AM and 5PM to arrange for our retrieval of the documents at no cost to you. Content Version: 12.2 ?? [id number] [employer]. Care instructions adapted under license by [facility]. If you have questions about a medical condition or this instruction, always ask your healthcare professional. [employer] disclaims any warranty or liability for your [...] the day after the procedure, use an fnpn-ehp-fmkliiz spray to numb your throat. Sucking on [...] occurs, please contact your Doctor. Please call [phone] before 8pm Mon-Fri with problems, questions or concerns. If you call after 8pm or on weekends, call the Hospital at [phone] and ask to speak to the Consulting Utility Forester salon customer experience specialist and the baker operator automatic will contact that person for you. When should you call for help? Call [phone] anytime you think you may need emergency [...] any problems. Where can you learn more? [facility]- View your After Visit Summary and more online at [email or web address] If you would like to provide feedback about your hospital experience, please call the Office of Patient and Family Relations at . If you have received this After Visit Summary in error, please immediately return it in person to the department, or notify the - Privacy Office by calling toll free at between the hours of 8AM and 5PM to arrange for our retrieval of the documents at no cost to you. Content Version: 12.2 ?? [id number] [employer]. Care instructions adapted under license by [facility]. If you have questions about a medical condition or this instruction, always ask your healthcare professional. [employer] disclaims any warranty or liability for your [...] x 3 weeks 40 g 08/11/2020 08/17/2022 adwjzg-cxcynixs-lbxfoh e (Creon 6) 6,000-19,000 -30,000 unit Capsule, [...] to Encounter Medication Sig Dispense Refill ??? gtuyqh-mvthbqnb-maougmr DR (Creon 6) 6,000-19,000 -30,000 unit Capsule, [...] Gar MD - 10/20/2020 1:[address] [facility] Operative Note Patient Name: Mathew Mendez : [id number] MR#: [id number] Case Date: 10/20/2020 Surgeon: Surgeon(s) and Role: [...] 7:30 AM EDT Hospital Encounter [place] [address] Lawrence Gar MD [facility] [place] [address] 01/02/2024 7:30 AM EDT - 01/02/2024 8:30 AM EDT [place] [address] Lawrence Gar MD [facility] DR [place] [address] EGD, UPPER GI ENDOSCOPY (WRVU 2.09) 11/17/2024 4:20 PM EDT Office [place] [address] Lawrence Gar MD [facility] [place] [address] Scheduled Procedures Name Priority Associated Diagnoses Date/Ti [...] Routine 10/20/2020 2:16 PM EDT Colonoscopy, Remv Florence Snare ([id number]) 10/20/2020 1:03 PM EDT Alcohol-induced chronic pancreatitis Screen for colon cancer Gastroesophageal reflux disease, unspecified whether esophagitis present UPPER EUS- ENDOSCOPIC ULTRASOUND (WRVU 3.47) 10/20/2020 1:03 PM EDT Alcohol-induced chronic pancreatitis Screen for colon cancer Gastroesophageal reflux disease, unspecified whether esophagitis present Upper Gi Endoscopy, Biopsy ([id number]) 10/20/2020 1:03 PM EDT Alcohol-induced chronic pancreatitis Screen for colon cancer Gastroesophageal reflux disease, unspecified whether esophagitis present UPPER EUS-ENDOSCOPIC ULTRASOUND Routine 10/20/2020 12:46 PM EDT COLONOSCOPY Routine 10/20/2020 12:46 PM EDT documented in this encounter Results * Surgical Pathology Report (10/20/2020 2:16 PM EDT) Pathologist [facility] Surgical Pathology Report [id number] ? Location: 4T; EA12; A The signing [...] Shyla Verified: ??11/02/2020 15:00 ??Pathologist Performed at: ??-[facility] Dept. of Pathology, [place], [place] DISCUSSION A - ??The findings are [...] bisected ?E3: ??Polyp inked and bisected ??MLL [facility] 10/20/2020 2:16 PM EDT Lawrence Gar MD PATHOLOGY/CYTOLOGY O SONIYA [facility] [place] [address] * Specimen to Pathology (10/20/2020 2:16 PM EDT) AP Specimen 10/20/2020 2:16 PM EDT 10/20/2020 2:16 PM EDT [facility] - 10/20/2020 2:16 PM EDT Specimen requisition ordered. ??Separate Pathology report to follow Lawrence Gar MD PATHOLOGY/CYTOLOGY O SONIYA [facility] [place] [address] * Specimen to Pathology (10/20/2020 2:16 PM EDT) AP Specimen 10/20/2020 2:16 PM EDT 10/20/2020 2:16 PM EDT [facility] - 10/20/2020 2:16 PM EDT Specimen requisition ordered. ??Separate Pathology report to follow Lawrence Gar MD PATHOLOGY/CYTOLOGY O SONIYA Performing Organization Address City/[facility]/ZIP Co de Phone Number [facility] [place] [address] * Specimen to Pathology (10/20/2020 2:16 PM EDT) AP Specimen 10/20/2020 2:16 PM EDT 10/20/2020 2:16 PM EDT [facility] - 10/20/2020 2:16 PM EDT Specimen requisition ordered. ??Separate Pathology report to follow Lawrence Gar MD PATHOLOGY/[place] [address] * Specimen to Pathology (10/20/2020 2:16 PM EDT) AP Specimen 10/20/2020 2:16 PM EDT 10/20/2020 2:16 PM EDT [facility] - 10/20/2020 2:16 PM EDT Specimen requisition ordered. ??Separate Pathology report to follow Lawrence Gar MD PATHOLOGY/CYTOLOGY O SONIYA Performing Organization Address [facility] Co de Phone Number [facility] [place] [address] * Specimen to Pathology (10/20/2020 2:16 PM EDT) AP Specimen 10/20/2020 2:16 PM EDT 10/20/2020 2:16 PM EDT Narrative [facility] - 10/20/2020 2:16 PM EDT Specimen requisition ordered. ??Separate Pathology report to follow Lawrence Gar MD PATHOLOGY/CYTOLOGY O SONIYA Performing Organization Address [facility] de Phone Number [facility] [place] [address] * UPPER EUS-ENDOSCOPIC ULTRASOUND (10/20/2020 12:46 PM EDT) UPPER ENDOSCOPIC ULTRASOUND [facility] Endoscopy Procedure Date: 10/20/2020 12:46 PM ? Patient Name: Mathew Mendez ? N: [id number] ? Date of : 1955 ? Age: 65 ? Order #: [id number] ? Instrument Name: [id number] ? Procedure: ? Upper EUS Indications: ? Dysphagia, Follow-up of ? gastro-esophageal reflux disease Providers: ? Lawrence Gar MD, Sarina Pinto, ? Ilya Scales MD: ?Jovani Wharton, DO Medicines: ? Monitored Anesthesia Care Complications: ? No immediate complications. Procedure: ? Pre-Anesthesia Assessment: ? - Bonifay Protocol: ? - Pre-procedure Verification: Prior ? [...] by the physician, the nurse, ? the wrapper and preserver and the lab support technician in ? the pre-procedure area in [...] Procedure Code(s): ?? --- Professional --- ? 62275, Esophagogastroduodenos copy, ? flexible, transoral; with endoscopic ? ultrasound examination, including the ? esophagus, stomach, and either the ? duodenum or a surgically altered ? stomach where the jejunum is examined ? distal to the anastomosis ? 32764, Esophagogastroduodenos copy, ? flexible, transoral; with biopsy, [...] ? disease without esophagitis CPT copyright 2019 [employer]. All rights reserved. The codes documented in this report are preliminary and upon foreign correspondent review may be revised to meet current [...] * COLONOSCOPY (10/20/2020 12:46 PM EDT) COLONOSCOPY [facility] Endoscopy Procedure Date: 10/20/2020 12:46 PM ? Patient Name: Mathew Mendez ? N: [id number] ? Date of : 1955 ? Age: 65 ? Order #: [id number] ? Instrument Name: [id number] ? Procedure: ? Colonoscopy Indications: ? Screening for colorectal malignant ? neoplasm Providers: ? Lawrence Gar MD, Sarina Pinto, ? Adela Patino, Ilya Landers MD: ?Jovani Wharton, DO Medicines: ? Monitored Anesthesia Care Complications: ? No immediate complications. Procedure: ? Pre-Anesthesia Assessment: ? - Bonifay Protocol: ? - Pre-procedure Verification: Prior ? [...] by the physician, the nurse, ? the wrapper and preserver and the lab support technician in ? the procedure room. ? [...] Procedure Code(s): ?? --- Professional --- ? 33942, Colonoscopy, flexible; with ? removal of tumor(s), [...] and ? anastomosis status CPT copyright 2019 [employer]. All rights reserved. The codes documented in this report are preliminary and upon foreign correspondent review may be revised to meet current compliance requirements. Attending Participation: ? I was present and participated during the entire ? procedure, including non-yates portions. ? __ Lawrence Gar MD 10/20/2020 4:37:04 PM This report has been signed electronically. Number of Addenda: 0 Note Initiated On: 10/20/2020 12:46 PM [employer]OVATION 10/20/2020 12:4 6 PM EDT Joavni Wharton DO GENERAL SURGICAL ORD ERABLES [employer]ATION documented in this encounter Visit Diagnoses Diagnosis Alcohol-induced chronic pancreatitis Chronic pancreatitis Screen for colon cancer Special screening for malignant neoplasms, colon Gastroesophageal reflux disease Esophageal reflux Alcohol-induced chronic pancreatitis Chronic pancreatitis Screen for colon cancer Special screening for malignant neoplasms, colon Gastroesophageal reflux disease, unspecified whether esophagitis present Sharma's esophagus with dysplasia Sharma's esophagus documented [...] CRNA) documented in this encounter Care Teams Check Scaler Relationship Specialty Start Date End Date Jovani Wharton DO [address] [place] [address] [place] [address] PCP - General Family Medicine 10/18/16 06/18/22 documented as of this encounter
--- OUTSIDE RECORDS SUMMARY | 2023-12-10 05:00 | XMS_ITS | Encounter Summary ---
Author Organization [facility] Address [facility] [place] [address] Care Team Providers Care Head Cook Name Role Phone Jovani Wharton DO Primary Care Provider [phone] Reason for Visit * Reason Comments Skin Lesion * Consultation (Routine) - Closed Specialty Diagnoses / Procedures Referred By Devaughn bobo Referred To Contact Dermatology Diagnoses TINEA CORPORIS Jovani Wharton DO [address] [place] [address] [facility] Dermatology [address] [place] [address] Referral ID Status Reason Start Date Expiration Date V isits Requested Visits Authorized [id number] Closed Consult, Test & Treat Connection [facility] 04/18/2018 04/18/2019 1 1 Encounter Details Date Type Department Care Team (Late st Contact Info) Description 06/18/2018 3:00 PM EST Office Visit Dermatology at [facility] [address] [place] [address] Sharyn Shepherd MD [facility] DR TOM FERNAN[place] [address] Candelaria Coleman PA [facility] [address] TOM [facility]ERNA[facility] [address] Nummular eczema Social History Tobacco Use Types Packs/Day Years Used Date Smoking Tobacco: Never Smokeless Tobacco: Never Sex and Gender Information Value Date Recorded Sex Assigned at Not on file Gender Identity Not on file Sexual Orientation Not on file documented as of this encounter Progress Notes * Candelaria Coleman PA - 06/18/2018 3:00 PM EST Images from the original note were not included. DERMATOLOGY - NEW PATIENT CONSULT NOTE Date of service: 06/18/2018 Mathew Mendez : 1955, 63 y.o. CC: Chief Complaint Patient presents with ??? Skin Lesion HPI: Mathew Mendez is a 63 y.o. male self-referred for a suspected fungal infection of the feet, which he is not currently treating. He reports that it has been present for about 3 months and is slightly itchy. He went to see his PCP, who recommended he treat with an OTC anti-fungal cream for 1 month. However, the rash did not resolve. He denies swelling of the lower legs at the end of the day. Relevant Skin History: - Okay to leave detailed message with results? Yes - None Family History: Melanoma: None Relevant Social History: - Medications: Current Outpatient Medications Medication Sig Dispense Refill ??? allopurinol (ZYLOPRIM) 100 mg Tablet Take 100 mg by mouth daily. ??? amLODIPine (NORVASC) 5 mg Tablet Take 5 mg by mouth daily. ??? ibuprofen (ADVIL;MOTRIN) 200 mg Tablet Take 200 mg by mouth every 6 hours as needed for Pain. ??? lansoprazole (PREVACID) 30 mg Capsule, Delayed Release(E.C.) Take 30 mg by mouth daily. 0 ??? meTOPROLOL succinate (TOPROL-XL) 100 mg Tablet Sustained Release 24 hr Take 100 mg by mouth daily. 0 ??? naltrexone (DEPADE) 50 mg Tablet Take 50 mg by mouth daily. 0 No current facility-administered medications for this visit. Allergies: Allergies Allergen Reactions ??? Morphine Hives Review of Systems: - General: Feels well. - Skin: No other skin concerns. Examination: - Constitutional: Patient was alert, well-appearing and in no noticeable distress. - Skin: A focused examination of the feet was performed. Diagnosis/Skin findings/Assessment/Plan: 1. Nummular eczema - Right medial ankle, right lateral ankle, and left proximal dorsal foot: Nummular eczematous papules and plaques. - NATALYA testing of the skin scraping was negative for fungal elements. - Rx: Betamethasone dipropionate 0.05% ointment - Apply to affected areas on the ankles and feet twice daily for up to 2 weeks, then take 1 week off. Repeat the cycle as needed. -Discouraged soap to the affected areas, except Dove sensitive skin bar soap if needed. Moisturize after showering and more often if possible. Photos taken (by Elise Coleman) and documented with patient consent. [id number] RTC: PRN Note initiated by Michelle Guy CMA. I, Kristi Morillo, have performed the documentation for this encounter in the presence of and acting as a scribe for Candelaria Coleman PA-C (Bri). I performed the services which were documented by the scribe, and I agree with the accuracy of the documentation in this encounter. Candelaria Coleman PA-C (Bri) Reviewed and signed by Candelaria Coleman PA-C [facility] Patient seen in conjunction with staff waiter/waitress tourist class: Sharyn Shepherd MD Section of Dermatology [facility] * Sharyn Shepherd MD - 06/18/2018 3:00 PM EST Patient seen and examined with Elise Coleman PA-C. We reviewed the patient's history. I personallyexamined the patient. We discussed the assessment and plan. Specifically, ?? Expand All Collapse All I have seen and examined this patient.?? I evaluated the skin findings: ??- I noted nummular eczematous plaques I went over the patient's history and discussed the symptoms. I discussed recommendations and therapeutic measures. ??- I agree with plan as documented by Elise Coleman PA-C. We will see the patient back as planned; they will call if problems arise. Patient seen in conjunction with Candelaria Coleman PA-C (Bri) Signed by: SHARYN SHEPHERD MD Section of Dermatology [facility] documented in this encounter Plan of Treatment Upcoming Encounters Date Type Department Care Team (Latest Contact Info) Description 01/02/2024 7:30 AM EDT Hospital Encounter Gastroenterology at [place] [id number] Lawrence Gar MD [facility] DR GASTROENTER[place] [address] 01/02/2024 7:30 AM EDT - 01/02/2024 8:30 AM EDT Surgery [place] [address] Lawrence Gar MD [facility] DR GASTROENTEROLOG[place] [address] EGD, UPPER GI ENDOSCOPY (WRVU 2.09) 11/17/2024 4:20 PM EDT Office [place] [address] Lawrence Gar MD [facility] DR GASTROENTEROLOG[place] [address] Scheduled Procedures Name Priority Associated Diagnoses Date/Ti me EGD, UPPER GI ENDOSCOPY (WRVU 2.09) Sharma's esophagus with dysplasia 01/02/2024 7:30 AM EDT documented as of this encounter Visit Diagnoses Diagnosis Nummular eczema Contact dermatitis and other eczema, due to unspecified cause Sharma's esophagus with dysplasia Sharma's esophagus documented in this encounter Care Teams Head Cook Relationship Specialty Start Date End Date Jovani Wharton DO [address] [place] [address] PCP - General Family Medicine 10/18/16 06/18/22 documented as of this encounter
--- OUTSIDE RECORDS SUMMARY | 2023-12-10 05:00 | XMS_ITS | Encounter Summary ---
Author Organization [facility] Address [facility] [place] [address] Care Team Providers Care Pizza Hut Team Member Name Role Phone DioJovani franks Primary Care Provider Encounter Details Date Type Department Care Team (Latest Contact Info) Description 07/04/2020 2:30 PM EST Procedure visit Dermatology at [place] [address] [place] [address] Dominguez Lopez MD [facility] [place] [address] Squamous cell carcinoma of skin of ear, unspecified laterality Social History Tobacco Use Types Packs/Day Years Used Date Smoking Tobacco: Never Smokeless Tobacco: Never Sex and Gender Information Value Date Recorded Sex Assigned at Not on file Gender Identity Not on file Sexual Orientation Not on file documented as of this encounter Last Filed Vital Signs Vital Sign Reading Time Taken Comments Blood Pressure 118/81 07/04/2020 2:46 PM EST Pulse 75 07/04/2020 2:46 PM EST Temperature - - Respiratory Rate - - Oxygen Saturation - - Inhaled Oxygen Concentration - - Weight - - Height - - Body Mass Index - - documented in this encounter Patient Instructions * Patient Instructions* Mi Banda, DIRECTOR OF HEMOPHILIA - 07/04/2020 2:30 PM EST Your staff surgeon today was Dominguez Lopez MD,PhD. Your wound(s) was repaired by [id number] stitches called a primary repair. You do not need to come back for suture removal because only absorbable sutures were used today. If the absorbable [...] 15 to 20 minutes to help soften it. o Pat the area dry with clean [...] the skin compared to paper tape. o Discontinue wound care after 7 days. If any portion of the incision was left open to heal on its own, continue to apply Vaseline daily until healed. o Allow the absorbable stitches to heal. If the top stitches that are absorbable are irritating your skin, you may call us to have them removed. Otherwise, they will be absorbed naturally in approximately 2 weeks. It may absorb as quickly as 4 days. o Keep in mind that if you do not want to use a bandage at all due to difficulty, allergies, irritation of skin, cost, time, or inconvenience --- you can certainly avoid bandages altogether. However,it is imperative that you continue with topical [...] other antibacterial liquid soap After Surgery 1. If you are a tobacco user please attempt to decrease the amount of tobacco products used following surgery for 1-2 weeks. 2. Limit alcohol intake to one drink per day for the next 3 days. 3. Do not participate in athletic activities for 5-7 days, unless you were told a different timeline during your visit. Athletic activity is a relative term, but this is considered to be anything that could potentially raise your heartrate or blood pressure. Elevating your heart rate and blood pressure increases the risk of swelling, bleeding, wound opening, and it could lead to worse scarring. Walking at a leisurely pace is fine for most people, but not if you are walking for the purpose of exercise. When in doubt, take it easy or call us. 4. Do not lift anything heavier than 10 pounds for 5-7 days postoperatively. 5. Some creative engagement director may need to be delayed or delegated [...] as often as is recommended by your plant anatomist, for new skin cancers. This is once [...] 30 to 50 sunscreen (broad spectrum). 15. Any time you have skin surgery or any type of surgery, you can experience mild sensation loss (numbness) in the area of surgery. Massage starting at 8 weeks after surgery can help. 16. Swelling and bruising is common, and expected, [...] the last type of swelling to resolve. Antibiotics: If you were given antibiotic prescription, [...] it. If after hours, please call the final block press operator or [phone] and ask for the plant anatomist on-call. If you have any non-urgent questions or concerns, please feel free to call my office or contact me through our patient portal, Jiff, at [email or web address] How to contact us during business hours Dermatology at [facility] [address]: Mohs scheduling or Mohs follow-up appointments: [phone] documented in this encounter Progress Notes * Dominguez Lopez MD - 07/04/2020 2:30 PM EST OPERATIVE REPORT (REPAIR): Second-stage flap takedown STAFF: Dominguez Lopez MD PhD ASSISTANTS: Same as above DATE OF SERVICE: 07/05/2020 INDICATION: PLANNED SECOND-STAGE PEDICLE TAKEDOWN. 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 SITE: Right mid helix PROCEDURE Second-stage flap takedown. Prior to the procedure, final verification of the patient identity and correct marked surgical sitewas performed. The anesthesia used was 1% lidocaine with 1:200,000 epinephrine. The skin was prepped in a sterile fashion with 2% chlorhexidine. The flap pedicle was divided. The distal portion of the pedicle was trimmed and defatted to inset into the defect with 5.0 Monocryl and 5.0 fast absorbing gut suture. The proximal portion of the pedicle was trimmed full thickness and the free margins reapproximated with 5.0 monocryl and 5.0 fast absorbing gut suture. Hemostasis was obtained with electrocoagulation. Postoperative size: 2 x 2 cm. Estimated blood loss: Minimal. Complications: None. Wound care: Routine. POST OPERATIVE MEDICATIONS: Keflex 500 mg PO BID x 7 days FOLLOW UP: as needed. Dominguez Lopez MD PhD Mohs Micrographic Surgery and Dermatologic Oncology Department of Dermatology documented in this encounter Plan of Treatment Upcoming Encounters Date Type Department Care Team (Latest Contact Info) Description 01/02/2024 7:30 AM EDT Hospital En[place] [address] Lawrence Gar MD [facility] DR [place] [address] 01/02/2024 7:30 AM EDT - 01/02/2024 8:30 AM EDT [place] [address] Lawrence Gar MD [facility] DR [place] [address] EGD, UPPER GI ENDOSCOPY (WRVU 2.09) 11/17/2024 4:20 PM EDT Office [place] [address] Lawrence Gar MD [facility] DR [place] [address] Scheduled Procedures Name Priority Associated Diagnoses Date/Ti me EGD, UPPER GI ENDOSCOPY (WRVU 2.09) Sharma's esophagus with dysplasia 01/02/2024 7:30 AM EDT documented as of this encounter Visit Diagnoses Diagnosis Squamous cell carcinoma of skin of ear, unspecified laterality Sharma's esophagus with dysplasia Sharma's esophagus documented in this encounter Care Teams [employer] Team Member Relationship Specialty Start Date End Date Jovani Wharton DO [address] [place] [address] PCP - General Family Medicine 10/18/16 06/18/22 documented as of this encounter
--- OUTSIDE RECORDS SUMMARY | 2023-12-10 05:00 | XMS_ITS | Encounter Summary ---
[place] [address] Care Team Providers Care Golf Manager Name Role Phone DioJovani franks Primary Care Provider Reason for Visit * Reason Onset Date Comments Pre Procedure Call 06/29/2019 Encounter Details Date Type Department Care Team (Late st Contact Info) Description 06/29/2019 Telephone Dermatology at [address] [address] Milvia Mancilla, RN Pre Procedure Call Social History Tobacco Use Types Packs/Day Years Used Date Smoking Tobacco: Never Smokeless Tobacco: Never Sex and Gender Information Value Date Recorded Sex Assigned at Not on file Gender Identity Not on file Sexual Orientation Not on file documented as of this encounter Miscellaneous Notes * Telephone Encounter - Milvia Mancilla RN - 06/29/2019 3:46 PM EST Mohs consultation and preoperative note (H&P) Patient Name: Mathew Mendez Age: 64 y.o. Date of : 1955 Today's Date: 06/29/2019 REFERRING PROVIDER: Deb Hamlin MD CC: Mohs [...] no ALLERGIES: Allergies reviewed MEDICATIONS: Medications reviewed documented in this encounter Plan of Treatment Upcoming Encounters Date Type Department Care Team (Latest Contact Info) Description 01/02/2024 7:30 AM EDT Hospital Encounter [place] [address] Lawrence Gra MD [facility] [place] [address] 01/02/2024 7:30 AM EDT - 01/02/2024 8:30 AM EDT [place] [address] Lawrence Gar MD [facility] [place] [address] EGD, UPPER GI ENDOSCOPY (WRVU 2.09) 11/17/2024 4:20 PM EDT Office [place] [address] Lawrence Gar MD [facility] [place] [address] Scheduled Procedures Name Priority Associated Diagnoses Date/Ti me EGD, UPPER GI ENDOSCOPY (WRVU 2.09) Sharma's esophagus with dysplasia 01/02/2024 7:30 AM EDT documented as of this encounter Visit Diagnoses Not on filedocumented in this encounter Care Teams Golf Manager Relationship Specialty Start Date End Date Jovani Wharton DO [address] [place] [address] [address] [place] [address] PCP - General Family Medicine 10/18/16 06/18/22 documented as of this encounter
--- OUTSIDE RECORDS SUMMARY | 2023-12-10 05:00 | XMS_ITS | Encounter Summary ---
Author Organization [facility] Address [facility] [place] [address] Care Team Providers Care Poured Wall Foreman Name Role Phone DioJovani franks Primary Care Provider Encounter Details Date Type Department Care Team (Late st Contact Info) Description 08/11/2020 10:00 AM EDT Office Visit Dermatology at [facility] [address] [place] [address] Deb Hamlin MD [facility] DR TOM [place] [address] [place] (actinic keratosis); Nummular eczema Social History Tobacco Use Types Packs/Day Years Used Date Smoking Tobacco: Never Smokeless Tobacco: Never Sex and Gender Information Value Date Recorded Sex Assigned at Not on file Gender Identity Not on file Sexual Orientation Not on file documented as of this encounter Patient Instructions * Patient Instructions* Adela Pino CMA - 08/11/2020 10:00 AM EDT Efudex & Carac (5-Fluorouracil) Treatment You have been prescribed Efudex OR Caracby your physician for treatment of Actinic Keratosis. Actinic Keratosis are common pre-cancerous lesions found most typically in lightly pigmented individuals, since a large number of cancerous cells begin as Actinic Keratosis, detection and treatment is critical. They are most commonly seen on the scalp, face, upper chest, hands, forearms and even the lower legs. Directions: - Apply a thin layer twice daily (morning and night) to your Ears for 3 weeks - Using a pea-sized amount, you may apply the cream with your clean fingertip to your entire face. - Be careful to avoid the eyes and mouth. Make sure you wash your hands after application. - You may apply sunscreen or moisturizer to the treatment area one hour after Efudex OR Carac application. Additional tips:?? - Avoid sun exposure if possible. Wear wide-brimmed hat.?? - May use Tylenol or Ibuprofen for discomfort?? - May use cold wet compresses for discomfort?? - Apply vaseline or aquaphor multiple times per day to ease discomfort and speed healing ?? What to expect:?? - Red, crusted, irritated skin??. This is a normal reaction - Skin will not heal until AFTER treatment is completed?? - May take several weeks to heal completely following treatment? *DO NOT SHARE THIS MEDICATION *Do not stop this medication unless instructed to by a physician. *During this treatment, please avoid using any other topical products unless instructed to do so byyour physician. For questions and concerns please call your nurse at: documented in this encounter Progress Notes * Deb Hamlin MD - 08/11/2020 10:00 AM EDT DERMATOLOGY - ESTABLISHED PATIENT NOTE Date of service: 08/11/2020 Mathew Mendez : 1955 CC: FSE HPI: Mathew Mendez is a 65 y.o. established patient. Last seen by Dr. Hamlin: 04/25/2020 Last seen in [facility] Dermatology: 04/25/2020 Here today with the following concerns: - New itchy patch on the left ankle x 2 months. Treating cerave cream and anti itch - Mohs went well, but was more complicated surgery than expected. Healed well. Last FSE:??06/2019 Current sun protection:??baseball hat ?? Relevant Medical History: Preferred name:??Mathew Skin type:??1 ?? Yes/No If yes (date, subtype, location, treatment) Melanoma No ?? Dysplastic nevi No ?? SCC Yes 04/2019: Left earlobe, well to mod dif, s/p Mohs?? 05/2020: right mid helix, s/p Mohs BCC No ?? AK Yes LN2 Eczema/Psoriasis Yes ( Nummular eczema) Immunosuppression or Malignancy No ?? History of blistering sunburn Yes As a child Other No ? Procedure Screening Questions: ?Yes/No ?If Yes, details [...] No ?? Other No ? 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 Medications: allopurinoL, amLODIPine, cephALEXin, cyanocobalamin (Vitamin B-12), lansoprazole, etuwmf-fgulovwh-ahqlszt DR, lisinopriL, magnesium, and metoprolol succinate XL Allergies [...] the findings listed below. Notable findings/Assessment/Plan: Actinic keratoses - scattered ill defined scaly pink papules on the left forehead x 1 - Reviewed diagnosis with patient and treatment options. Liquid Nitrogen Procedure - two freeze thaw cycles Number of lesions - 1 The patient's consent for liquid nitrogen was obtained. Risks and benefits were explained. The possible need for additional liquid nitrogen was reviewed. Risks of increased pigmentation, decreased pigmentation, blister formation, infection, pain, and recurrence were all discussed. The patient tolerated the procedure well. Wound care was reviewed. Field cancerization/actinic keratoses - diffuse actinic damage and actinic keratoses in the following lal as listed below. - Discussed field therapy options Field Severity Method of treatment Expected time frame ears mild to moderate efudex bid x 3 weeks now temples/forehead mild TBD - Reviewed importance of sun protection 365 days per year (hats/shade/clothing) and sunscreen recommendations (SPF30, UVA/UVB broad spectrum coverage, reapply every 2 hrs if still outside). Recommenddaily face lotion spf 15-30 (Cerave AM, Aveeno, Cotz) - Discussed warning signs of skin cancer, ABCDEs of melanoma. Nummular Eczema - Located on the b/l ankles are annular eczematous plaques - Recommend sensitive skin care: Dove fragrance free bar soap (folds/feet only), Cerave cream/Vanicream/Aveeno daily moisturizer within a few minutes of getting out of shower, lukewarm showers - Start Rx: triamcinolone 0.1% oinmtment BID x 2 weeks, then reduce to once daily x 2 weeks. For recurrences, okay to use up to 14 days total per month. Discussed side effects of chronic steroid use including skin thinning, telangiectasias, acne, striae. History of SCC - well healed scars on the right ear and left ear - NER RTC: Return in about 6 months (around 02/11/2021) for FSE Hx SCC. Note initiated by Adela Pino CMA. Adela Pino CMA has performed the documentation for this encounter in the presence of and actingas a scribe for Dr. Hamlin. I performed the above scribed service and agree with the accuracy of the documentation in this encounter. Reviewed and signed by: Deb Hamlin MD Dermatology [facility] documented in this encounter Plan of Treatment Upcoming Encounters Date Type Department Care Team (Latest Contact Info) Description 01/02/2024 7:30 AM EDT Hospital Encounter [place] [address] Lawrence Gar MD [facility] DR [place] [address] 01/02/2024 7:30 AM EDT - 01/02/2024 8:30 AM EDT Surgery [place] [address] Lawrence Gar MD [facility] DR [place] [address] EGD, UPPER GI ENDOSCOPY (WRVU 2.09) 11/17/2024 4:20 PM EDT Office [place] [address] Lawrence Gar MD [facility] DR [place] [address] Scheduled Procedures Name Priority Associated Diagnoses Date/Ti in EGD, UPPER GI ENDOSCOPY (WRVU 2.09) Sharma's esophagus with dysplasia 01/02/2024 7:30 AM EDT documented as of this encounter Visit Diagnoses Diagnosis AK (actinic keratosis) Actinic keratosis Nummular eczema Contact dermatitis and other eczema, due to unspecified cause Sharma's esophagus with dysplasia Sharma's esophagus documented in this encounter Care Teams Poured Wall Foreman Relationship Specialty Start Date End Date Jovani Wharton DO [address] [place] [address] PCP - General Family Medicine 10/18/16 06/18/22 documented as of this encounter
--- OUTSIDE RECORDS SUMMARY | 2023-12-10 05:00 | XMS_ITS | Encounter Summary ---
Author Organization [facility] [place] [address] Care Team Providers Care Bathing Suit Maker Name Role Phone Dio, Jovani MCCAIN Primary Care Provider Encounter Details Date Type Department Care Team (Latest Contact Info) Description 06/27/2021 1:00 PM EST Laboratory Appointment Lab [address] [place] [phone] CKD (chronic kidney disease) stage 4, GFR [...] 7:30 AM EDT Hospital En[place] [phone] Lawrence Gar MD [facility] [place] [address] 01/02/2024 7:30 AM EDT - 01/02/2024 8:30 AM EDT [place] [address] Lawrence Gar MD [facility] [place] [address] EGD, UPPER GI ENDOSCOPY (WRVU 2.09) 11/17/2024 4:20 PM EDT Office [place] [address] Lawrence Gar MD [facility] [place] [address] Scheduled Procedures Name Priority Associated Diagnoses Date/Ti me EGD, UPPER GI ENDOSCOPY (WRVU 2.09) Sharma's esophagus with dysplasia 01/02/2024 7:30 AM EDT documented as of this encounter Procedures Procedure Name Priority Date/Time Associated Diagnosis Comments HC VENIPUNCTURE Routine 06/27/2021 1:21 PM EST CKD (chronic kidney disease) stage 4, GFR 15-29 ml/min HEMOGRAM Routine 06/27/2021 1:21 PM EST CKD (chronic kidney disease) stage 4, GFR 15-29 ml/min DIFFERENTIAL, AUTOMATED Routine 06/27/2021 1:21 PM EST CKD (chronic kidney disease) stage 4, GFR 15-29 ml/min HC CBC,PLT & AUTO DIFF Routine 06/27/2021 1:21 PM EST CKD (chronic kidney disease) stage 4, GFR 15-29 ml/min HC PHOSPHORUS, SERUM Routine 06/27/2021 1:21 PM EST CKD (chronic kidney disease) stage 4, GFR 15-29 ml/min HC ALBUMIN, SERUM Routine 06/27/2021 1:2 1 PM EST CKD (chronic kidney disease) stage 4, GFR 15-29 ml/min BASIC METABOLIC PANEL (NON-FASTING) Routine 06/27/2021 1:21 PM EST CKD (chronic kidney disease) stage 4, GFR 15-29 ml/min HC PROTEIN, QUANTITATIVE, URINE Routine 06/27/2021 1:19 PM EST CKD (chronic kidney disease) stage 4, GFR 15-29 ml/min HC UA W/OUT MICROSCOPIC Routine 06/27/2021 1:19 PM EST CKD (chronic kidney disease) stage 4, GFR 15-29 ml/min documented in this encounter Results * Differential, Automated (06/27/2021 1:21 PM EST) Neutrophils % 67.1 % [facility] Neutr Abs (ANC) 4.41 1.70 - 6.10 x10(3)/[facility] Lymphocytes % 15.1 % [facility] Lymphocytes Abs 1.0 0.9 - 3.2 x10(3)/[facility] Monocytes % 10.5 % [facility] Monocyte Abs 0.7 0.3 - 0.9 x10(3)/[facility] Eosinophils % 6.1 % [facility] Eosinophils Abs 0.4 0.0 - 0.4 x10(3)/[facility] Basophils % 0.9 % [facility] Basophils Abs 0.1 0.0 - 0.1 x10(3)/[facility] LABOR[facility] Immature Gran % 0.30 % [facility] Comment: Immature granulocytes(IG's)percentage and absolute count will include metamyelocytes, myelocytes, and promyelocytes. Blood smears from CBCs yielding IG's will be scanned manually for concordance. If this scan disagrees with the automated IG or if promyelocytes are noted, a manual differential will be performed. Raya Gran Abs 0.02 0.00 - 0.04 x10(3)/[facility]OR[facility] Blood 06/27/2021 1:21 PM EST 06/27/2021 1:27 PM EST Narrative Resulting Agency Comment Spec In Lab Divine Hernandez PAPER ROLLER HEMATOLOGY ORDERA BLES Performing Organization Address City/[facility]/ZIP Co de Phone Number [facility] [place] [address] * (ABNORMAL) Hemogram (06/27/2021 1:21 PM EST) WBC 6.6 4.0 - 9.5 x10(3)/[facility] RBC 3.38(L) 4.58 - 5.54 x10(6)/[facility] Hemoglobin 10.6(L) 13.7 - 16.5 g/dL [facility] Hematocrit 31.6(L) 40.5 - 48.5 % [facility] MCV 93.5(H) 82.9 - 93.1 fL [facility] MCH 31.4 27.5 - 32.1 pg [facility] MCHC 33.5 32.0 - 35.7 g/dL [facility] Platelets 254 145 - 357 x10(3)/[facility] LABORATORY RDWSD 47.0(H) 36.0 - 45.0 [facility] LAB[facility]ORY RDWCV 13.7 11.4 - 13.8 % [facility] MPV 10.6 7.6 - 12.9 [facility] nRBC % Auto 0.0 % [facility] nRBC Abs Auto 0.000 0.000 - 0.000 x10(3)/[facility] Blood 06/27/2021 1:21 PM EST 06/27/2021 1:27 PM EST Narrative Resulting Agency Comment Spec In Lab Divine Hernandez P[employer] ROLLER HEMATOLOGY ORDERA BLES Performing Organization Address City/[facility]/ZIP Co de Phone Number [facility] [place] [address] * (ABNORMAL) Basic Metabolic Panel (non-fasting) (06/27/2021 1:21 PM EST) Glucose Lvl 101 65 - 199 mg/dL [facility] Comment:Diabetes: >=200 mg/d L plus symptoms BUN 43(H) 10 - 20 mg/dL [facility] Creatinine 2.62(H) 0.80 - 1.50 mg/dL [facility] Sodium 139 135 - 145 mmol/L [facility] Potassium 4.4 3.5 - 5.0 mmol/L [facility] Comment: Please note: ??Patients with WBC >100,000 may have falsely elevated Potassium levels. ??For accurate Potassium quantification in these patients send serum separator tube (gold top) for subsequent determinations. ??Contact the Clinical Chemistry Laboratory if there are any questions. Chloride 109(H) 98 - 107 mmol/L [facility] CO2 17(L) 22 - 31 mmol/L [facility] Anion Gap 13 5 - 15 mmol/L [facility] Calcium 9.2 8.5 - 10.5 mg/dL [facility] Estimated GFR 24(L) >=60 mL/min/1. 73 m?? [facility] Comment: This patient? s estimated glomerular [...] Narrative Resulting Agency Comment Spec In Lab Divine Hernandez PAPER ROLLER CHEMISTRY ORDERAB LES [facility] [place] [address] * Albumin Level (06/27/2021 1:21 PM EST) Albumin 4.5 3.2 - 5.2 g/dL [facility] Blood 06/27/2021 1:21 PM EST 06/27/2021 1:28 PM EST Narrative Resulting Agency Comment Spec In Lab Divine L Mary PAPER ROLLER CHEMISTRY ORDERAB LES Performing Organization Address City/[facility] Co de Phone Number [facility] [place] [address] * Phosphorus (06/27/2021 1:21 PM EST) Phosphorus 3.0 2.5 - 4.5 mg/dL [facility] Blood 06/27/2021 1:21 PM EST 06/27/2021 1:28 PM EST Narrative Resulting Agency Comment Spec In Lab Divine L Mary PAPER ROLLER CHEMISTRY ORDERAB LES Performing Organization Address City/[facility]/ZIP Co de Phone Number [facility] [place] [address] * (ABNORMAL) PTH (06/27/2021 1:21 PM EST) PTH 98(H) 15 - 65 pg/mL [facility] Blood 06/27/2021 1:21 PM EST 06/27/2021 1:27 PM EST Narrative Resulting Agency Comment Spec In Lab Divine L Mary PAPER ROLLER CHEMISTRY ORDERAB LES Performing Organization Address [facility] Co de Phone Number [facility] [place] [address] * (ABNORMAL) Protein/Creatinine Ratio, urine (06/27/2021 1:19 PM EST) U Creatinine 147 mg/dL [facility] U Protein Ran 107(H) 0 - 12 mg/dL [facility] Prot/Cre Ratio 0.7 ratio [facility] Urine 06/27/2021 1:19 PM EST 06/27/2021 1:30 PM EST Narrative Resulting Agency Comment Spec In Lab Divine L Mary PAPER ROLLER URINE ORDERABLES Performing Organization Address City/[facility]/ZIP Co de Phone Number [facility] [place] [address] * (ABNORMAL) Urinalysis without microscopic (06/27/2021 1:19 PM EST) Glucose UA Negative Negative mg/dL [facility] Protein UA 100(A) Negative mg/dL [facility] Bilirubin UA Negative Negative mg/dL [facility] Comment: Clinical correlation required for positive Urine Bilirubin results as false positive may occur with some drugs and drug related products. If a false positive is suspected a serum total bilirubin should be considered if clinically indicated. Urobilinogen UA Normal Normal mg/dL [facility] pH UA 5.5 5.0 - 8.0 [facility] Blood UA Negative Negative mg/dL [facility] Ketones UA Trace(A) Negative mg/dL [facility] Nitrite UA Negative Negative [facility] Leukocytes UA Negative Negative mcL [facility] Y [facility] Appearance UA Clear Clear [facility] Spec [place] UA 1.018 1.005 - 1.030 [facility] Color UA Yellow Yellow [facility] Urine 06/27/2021 1:19 PM EST 06/27/2021 1:30 PM EST Narrative Resulting Agency Comment Spec In Lab Divine L Mary PAPER ROLLER URINE ORDERABLES Performing Organization Address City/[facility]/ZIP Co de Phone Number [facility] [place] [place] [address] documented in this encounter Visit Diagnoses Diagnosis CKD (chronic kidney disease) stage 4, GFR 15-29 ml/min Chronic kidney disease, Stage IV (severe) Sharma's esophagus with dysplasia Sharma's esophagus documented in this encounter Care Teams Bathing Suit Maker Relationship Specialty Start Date End Date Jovani Wharton DO [address] [place] [address] PCP - General Family Medicine 10/18/16 06/18/22 documented as of this encounter
--- OUTSIDE RECORDS SUMMARY | 2023-12-10 05:00 | XMS_ITS | Encounter Summary ---
Author Organization [place] [address] Care Team Providers Care Java Jsf Developer Name Role Phone DioJovani franks Primary Care Provider [phone] Encounter Details Date Type Department Care Team (Late st Contact Info) Description 10/20/2020 1:03 PM EDT Anesthesia Event [place] [address] Guilherme Anderson MD [facility] [place] [address] Anesthesia Record Procedure Summary Procedure Name Responsible Anesthesiologist Anesthesia Start Time Anesthesia Stop Time EGD WITH BIOPSY (WRVU 2.39) (Trunk) Guilherme Anderson MD 10/20/20 1303 10/20/20 1426 Events Date Time Event Comment 10/20/2020 1300 1303 AN Verify 1303 Start 1303 An Start Data 1310 An Induction 1311 Anesthesia Ready 1424 an stop data 1424 Recovery or ICU Handoff Tawana ent care was transferred to the destination unit staff after review of the patient's medical history, current anesthetic/surgical status and plan, according to the Provider Handoff Checklist. 1426 Stop Meds Name Total IV Lidocaine 100 mg Propofol 210 mg Propofol INF 933.6 mg lactated ringers infusion 0 mL * Agents Name O2 Air N2O O2 Auxiliary Flowmeter 1 * Blood No blood administrations on file. Lines, Drains, and Airways Type Details Placement Removal (RETIRED) Peripheral IV Line - Single Lumen 10/20/20; 1245; median cubital vein (antecubital fossa), right; [id number] catheter system; 22 gauge; soy garcia rn; distraction, tolerated well, appears comfortable; 1; median cubital vein (antecubital fossa), right; 10/20/20; 1443 10/20/20 1245 by Mae Garcia RN 10/20/20 1443 by Cathi Holm RN documented in this encounter Social History [...] OR Notes * Anesthesia Postprocedure Evaluation - Guilherme Anderson MD - 10/20/2020 4:31 PM EDT Department of Anesthesiology Post-procedure Note Patient: Mathew Mendez Procedure Summary Date: 10/20/20 Room / Location: [facility] / [facility] Anesthesia Start: 1303 Anesthesia Stop: 1426 Procedures: EGD WITH BIOPSY (WRVU 2.49) (N/A Trunk) UPPER EUS- ENDOSCOPIC ULTRASOUND (N/A Trunk) COLONOSCOPY, POLYPECTOMY, REMOVAL LESION BY SNARE (WRVU 4.67) (N/A Trunk) Diagnosis: Alcohol-induced chronic pancreatitis Screen for colon cancer Gastroesophageal reflux disease, unspecified whether esophagitis present (Pancreatitis, GERD and colon cancer screening) Surgeons: Lawrence Gar MD Responsible Provider: Guilhreme Anderson MD Anesthesia Type: MAC ASA Status: 3 All Anesthesia Providers: Anesthesiologist: Guilherme Anderson MD GLASS CHECKER: Obey Amezquita CRNA Vitals Value Taken Time BP 145/90 10/20/20 1510 Temp Pulse 72 10/20/20 1440 Resp 16 10/20/20 1440 SpO2 100 % 10/20/20 1517 Pain Level 0 10/20/20 1440 Vitals shown include unvalidated device data. Patient Location: PACU[facility] Level of Consciousness: Conscious but Sleepy Pain Management: Satisfactory Analgesia PONV: None Cardiovascular Status: At Baseline Respiratory Status: At Baseline Postoperative Fluid Status: Intravascular EUvolemia Possible Anesthetic Complications: NONE apparent at time of evaluation Final Primary Anesthesia Type: MAC (The anesthetic type performed was the same as planned.) Comments: * Anesthesia Preprocedure Evaluation - Guilherme Anderson MD - 10/20/2020 12:27 PM EDT Pre-Anesthesia Evaluation for: Mathew Mendez a 65 y.o. male. Procedure(s): EGD, UPPER GI ENDOSCOPY UPPER EUS- ENDOSCOPIC ULTRASOUND COLONOSCOPY, DIAGNOSTIC Patient Active Problem List Diagnosis ??? Pancreatitis ??? Gastroesophageal reflux ??? Diverticulitis ??? Alcoholism ??? HTN (hypertension) ??? Chronic renal disease ??? Anemia ??? Gout ??? HLD (hyperlipidemia) ??? Lumbar spondylosis ??? Gallstone ??? Status post total knee replacement ??? Ruptured extensor tendon of hand or wrist ??? Alcohol-induced chronic pancreatitis Added automatically from request for surgery [id number] ??? Screen for colon cancer Added automatically from request for surgery [id number] ??? Gastroesophageal reflux disease Added automatically from request for surgery [id number] No past medical history on file. No past surgical history on file. Social History Tobacco Use ??? Smoking status: Never Smoker ??? Smokeless tobacco: Never Used Substance Use Topics ??? Alcohol use: Not on file Social History Substance and Sexual Activity Drug Use Not on file Allergies Allergen Reactions ??? Morphine Hives Medications: MAR and/or home medications have been reviewed. Physical Exam: Preprocedure Vitals Current as of 10/20/20 1227 No BP, pulse, respiration, SpO2, or temperature recorded. Height: Weight: BMI: IBW: Airway Assessment: Mallampati: II TM distance: >3 FB Neck ROM: full Cardiovascular Assessment: Rhythm: regular Rate: normal Pulmonary Assessment: breath sounds clear to auscultation Dental Assessment: - normal exam Misc Assessment: Last Filed Perioperative Cognitive Screening None Anesthesia Plan: ASA 3 MAC, with a(n) intravenous induction Addendum 10/20/2020 (MD Justin): 65yo for EGD/EUS/colo. EGD/EUS for recurrent pancreatitis (no sx's currently) - ETOH related per EHR. HTN. Gout. Screening colo. Feels well currently. No active n/v/regurg sx's. Pt requests to proceed Region - Other Informed Consent: Anesthetic plan and risks discussed with patient. Plan discussed with GLASS CHECKER. Anesthesia Screening documented in this encounter Plan of Treatment Upcoming Encounters Date Type Department Care Team (Latest Contact Info) Description 01/02/2024 7:30 AM EDT Hospital Encounter [place] [address] Lawrence Gar MD [facility] [place] [address] 01/02/2024 7:30 AM EDT - 01/02/2024 8:30 AM EDT Surgery [place] [address] Lawrence Gar MD [facility] [place] [address] EGD, UPPER GI ENDOSCOPY (WRVU 2.09) 11/17/2024 4:20 PM EDT Office Visit [place] [address] Lawrence Gar MD [facility] [place] [address] Scheduled Procedures Name Priority Associated Diagnoses Date/Ti ky EGD, UPPER GI ENDOSCOPY (WRVU 2.09) Sharma's [...] 12:45 PM EDT 100 mL/hr 100 mL/hr lidocaine (pf) (Xylocaine) (20 mg/mL) 2% injection syringe Intravenous, PRN, Starting on Ladan 10/20/20 at 1310, Until Ladan 10/20/20 at 1426, Anesthesia Intra-op, Routine Given 10/20/2020 1:10 PM EDT 100 mg propofoL (Diprivan) 10 mg/mL bolus injection (Anesthesia) Intravenous, PRN, Starting on Ladan 10/20/20 at 1310, Until Ladan 10/20/20 at 1426, Anesthesia Intra-op Given 10/20/2020 1:26 PM EDT 30 mg Given 10/20/2020 1:23 PM EDT 30 mg Given 10/20/2020 1:10 PM EDT 150 mg propofoL (Diprivan) infusion Intravenous, CONTINUOUS PRN, Starting on Ladan 10/20/20 at 1310, Until Ladan 10/20/20 at 1426, Anesthesia Intra-op, Routine Rate/Dose Change 10/20/2020 1:43 PM EDT 200 mcg/kg/min 82.68 mL/hr New Bag 10/20/2020 1:10 PM EDT 150 mcg/kg/min 62.01 mL/ hr documented in this encounter Care Teams Java Jsf Developer Relationship Specialty Start Date End Date Jovani Wharton DO [address] [place] [address] [address] [place] [address] PCP - General Family Medicine 10/18/16 06/18/22 documented as of this encounter
--- OUTSIDE RECORDS SUMMARY | 2023-12-10 05:00 | XMS_ITS | Encounter Summary ---
Author Organization [facility] Address [facility] [place] [address] Care Team Providers Care Engine Emission Technician Name Role Phone DioJovani franks Primary Care Provider Encounter Details Date Type Department Care Team (Latest Contact Info) Description 06/23/2020 2:15 PM EST Clinical Support Dermatology at [facility] [address] [place] [address] Dominguez Lopez MD [facility] [address] [place] [address] Visit for suture removal Social History Tobacco Use Types Packs/Day Years Used Date Smoking Tobacco: Never Smokeless Tobacco: Never Sex and Gender Information Value Date Recorded Sex Assigned at Not on file Gender Identity Not on file Sexual Orientation Not on file documented as of this encounter Progress Notes * Milvia Mancilla RN - 06/23/2020 2:15 PM EST Images from the original note were not included. Patient: Mathew Mendez Date of . 1955 Today's Date: 06/23/2020 Mathew Mendez is a 65 y.o. male here for suture removal, nine days post op. Denies complications. Photograph: Plan: 1. Sutures removed today without complication. 2. Flap take down scheduled 07/04/2020. documented in this encounter Plan of Treatment Upcoming Encounters Date Type Department Care Team (Latest Contact Info) Description 01/02/2024 7:30 AM EDT Hospital Encounter [place] [address] Lawrence Gar MD [facility] [place] [address] 01/02/2024 7:30 AM EDT - 01/02/2024 8:30 AM EDT [place] [address] Lawrence Gar MD [facility] [address] [place] [address] EGD, UPPER GI ENDOSCOPY (WRVU 2.09) 11/17/2024 4:20 PM EDT Office [place] [address] Lawrence Gar MD [facility] [address] [place] [address] Scheduled Procedures Name Priority Associated Diagnoses Date/Ti me EGD, UPPER GI ENDOSCOPY (WRVU 2.09) Sharma's esophagus with dysplasia 01/02/2024 7:30 AM EDT documented as of this encounter Visit Diagnoses Diagnosis Visit for suture removal Encounter for removal of sutures Sharma's esophagus with dysplasia Sharma's esophagus documented in this encounter Care Teams Engine Emission Technician Relationship Specialty Start Date End Date Jovani Wharton DO [address] [place] [address] PCP - General Family Medicine 10/18/16 06/18/22 documented as of this encounter
--- OUTSIDE RECORDS SUMMARY | 2023-12-10 05:00 | XMS_ITS | Encounter Summary ---
Author Organization [facility] Address [facility] [place] [address] Care Team Providers Care Digital Media Planner Name Role Phone Joavni Wharton DO Primary Care Provider Reason for Visit * Consultation (Routine) - Specialty Diagnoses / Procedures Referred By Devaughn bobo Referred To Contact Dermatology Diagnoses Basal cell carcinoma Jovani Wharton DO [address] [place] [address] [facility] Dermatology [address] [place] [address] Referral ID Status Reason Start Date Expiration Date V isits Requested Visits Authorized [id number] Consult, Test & Treat PCP Updated and/or Approved 05/15/2019 11/14/2019 6 6 Encounter Details Date Type Department Care Team (Late st Contact Info) Description 05/25/2019 9:15 AM EST Office Visit Dermatology at [facility] [address] [place] [address] Deb Hamlin MD [facility] [address] [place] [address] Neoplasm of uncertain behavior of skin; AK (actinic keratosis) Social History Tobacco Use Types Packs/Day Years Used Date Smoking Tobacco: Never Smokeless Tobacco: Never Sex and Gender Information Value Date Recorded Sex Assigned at Not on file Gender Identity Not on file Sexual Orientation Not on file documented as of this encounter Patient Instructions * Patient Instructions* Nehal Crouch LPN - 05/25/2019 9:15 AM EST Efudex (5-Fluorouracil) Treatment You have been prescribed Efudex by your physician for treatment of Actinic Keratosis. [...] twice daily (morning and night) to your face for 3 weeks - Using a pea-sized [...] Progress Notes * Deb Hamlin MD - 05/25/2019 9:15 AM EST Images from the original note were not included. DERMATOLOGY - ESTABLISHED PATIENT NOTE Date of service: 05/25/2019 Mathew Mendez : 1955 CC: Spot check HPI: Mathew Mendez is a 64 y.o. established patient. Last seen in [facility] Dermatology: 06/18/2018 Here today with the following concerns: - Concerning lesion on his left ear that he has had for 6-8 months. It was small and is now bigger,scaly and tender to the touch. He also has some scaly areas on his right ear and temples. Last FSE: Has not have a full skin exam Current sun protection: none Relevant Medical History: Preferred name: Mathew Skin type: 1 Yes/No If yes (date, subtype, location, treatment) Melanoma no Dysplastic nevi no SCC no BCC no AK yes PCP - LN2 Eczema/Psoriasis yes Betamethasone dipropionate Immunosuppression or Malignancy no History of blistering sunburn yes As a child Other no Procedure Screening Questions: Yes/No If Yes, details Defibrillator/Pacemaker no Artificial Joints yes Right knee Heart Valves no Blood Thinners no Prophylactic Antibiotics yes Best way to reach with results Phone Ok to leave message Relevant Family History: Yes/No If yes, who (mom/dad/sibling/child) Melanoma no SCC no BCC no Psoriasis or Eczema no Other no Social History: 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 Morphine Hives Review of Systems: - General: Feels well. - Skin: No other skin concerns. Examination: - Constitutional: Patient was alert, well-appearing and in no noticeable distress. - Skin exam: Skin examination of the scalp, hair, head, face, neck was normal with the exception ofthe findings listed below. Notable findings/Assessment/Plan: 1. SCC vs less likely BCC vs AFX - 6 mm firm pink tender nodule located on the left earlobe. - Recommend biopsy today. - Discussed MOHS pending biopsy results. - Shave biopsy: Location: left earlobe The patient's consent was obtained. Risk of [...] was reviewed and written instructions were given. 2. Actinic keratoses - scattered ill defined scaly pink papules on the forehead, ears, temples, cheeks. - Reviewed diagnosis with patient and treatment options. Reviewed LN2 vs. Efudex. Strongly encouraged efudex - Discussion of efudex for face in detail. Recommend hairline to del angel, and ears. Handout provided. - Will plan on discussing LN2 vs efudex at full skin exam in Jun. Plan for Jun or july for treatment. RTC: Jun 2019 full skin exam and re-discuss efudex or PRN if symptoms worsen or persist. Photo was taken and charted with patient's consent: Note initiated by NEHAL CROUCH LPN. NEHAL CROUCH LPN has performed the documentation for this encounter in the presence of and acting as a scribe for Dr. Hamlin. I performed the above scribed service and agree with the accuracy of the documentation in this encounter. Reviewed and signed by: Deb Hamlin MD Dermatology [facility] * Deb Hamlin MD - 05/25/2019 9:15 AM EST Adela Please notify pt Pathology showed SCC, recommend Mohs surgery. -jb A. Skin, left earlobe, shave biopsy: - ??Invasive squamous cell carcinoma, well to moderately differentiated, present at the ??peripheral and deep specimen edges * Adela Pino CMA - 05/25/2019 9:15 AM EST Left a message for patient to call back in regards to biopsy results * Adela Pino CMA - 05/25/2019 9:15 AM EST Spoke with patient in regards to biopsy results. Vero please call and schedule for Mohs documented in this encounter Plan of Treatment Upcoming Encounters Date Type Department Care Team (Latest Contact Info) Description 01/02/2024 7:30 AM EDT Hospital Encounter [place] [address] Lawrence Gar MD [facility] [place] [address] 01/02/2024 7:30 AM EDT - 01/02/2024 8:30 AM EDT Surgery [place] [phone] Lawrence Gar MD [facility] [place] [address] EGD, UPPER GI ENDOSCOPY (WRVU 2.09) 11/17/2024 4:20 PM EDT Office Visit [place] [phone] Lawrence Gar MD [facility] [place] [address] Scheduled Procedures Name Priority Associated Diagnoses Date/Ti me EGD, UPPER GI ENDOSCOPY (WRVU 2.09) Sharma's esophagus with dysplasia 01/02/2024 7:30 AM EDT documented as of this encounter Procedures Procedure Name Priority Date/Time Associated Diagnosis Comments SURGICAL PATHOLOGY REPORT Routine 05/25/2019 9:57 AM EST SPECIMEN TO PATHOLOGY Routine 05/25/2019 9:57 AM EST Neoplasm of uncertain behavior of skin documented in this encounter Results * Surgical Pathology Report (05/25/2019 9:57 AM EST) Surgical Pathology Report [id number] ? Location: [facility] The signing pathologist has (i) examined the relevant preparation(s) for the specimen(s) and (ii) rendered or confirmed the diagnosis(es). . ?Surgical Pathology DIAGNOSIS A. Skin, left earlobe, shave biopsy: - ??Invasive squamous cell carcinoma, well to moderately differentiated, present at the peripheral and deep specimen edges Electronically signed by: ??Anthony HENDRICKS, PhD, Bob Verified: ??05/26/2019 ?Dermatopathol ogist Performed at: ??-[facility] [place] Dept. of Pathology, [place], [place] CLINICAL INFORMATION Specimen Submitted: A - Skin, left earlobe, shave biopsy ONLY (1) Clinical History and Diagnosis: 6 mm firm pink tender nodule, SCC versus less likely BCC versus AFX SPECIMEN PROCESSING A - Labeled/Fixativ e: Left ear lobe, formalin. Quantity/Size: ??Single, single 0.7 x 0.5 x 0.4 cm. Tissue Description: [place]-white granular skin shave. Sections/Proces sing: Inked, bisected and entirely submitted in 1 cassette labeled A1. ??MLL [facility] 05/25/2019 9:57 AM EST Deb Hamlin MD PATHOLOGY/CYTOLOGY O SONIYA Performing Organization Address [facility] Co de Phone Number [facility] [place] [address] * Specimen to Pathology (05/25/2019 9:57 AM EST) AP Specimen 05/25/2019 9:57 AM EST 05/25/2019 2:59 PM EST Narrative [facility] - 05/25/2019 3:00 PM EST Specimen requisition ordered. ??Separate Pathology report to follow Resulting Agency Comment Spec In Lab Deb Hamlin MD PATHOLOGY/CYTOLOGY O SONIYA [facility] [place] [address] documented in this encounter Visit Diagnoses Diagnosis Neoplasm of uncertain behavior of skin AK (actinic keratosis) Actinic keratosis Sharma's esophagus with dysplasia Sharma's esophagus documented in this encounter Care Teams Digital Media Planner Relationship Specialty Start Date End Date Jovani Wharton DO [address] [place] [address] PCP - General Family Medicine 10/18/16 06/18/22 documented as of this encounter
--- OUTSIDE RECORDS SUMMARY | 2023-12-10 05:00 | XMS_ITS | Encounter Summary ---
Author Organization [facility] Address [facility] [place] [address] Care Team Providers Care Body Former Name Role Phone Jovani Wharton DO Primary Care Provider [phone] Reason for Visit * Consultation (Routine) - Closed Specialty Diagnoses / Procedures Referred By Devaughn bobo Referred To Contact Gastroenterology Diagnoses Acute pancreatitis without necrosis or infection, unspecified Pancreatitis Procedures Consult Jovani Wharton DO [address] [place] [address] [facility] [address] [place] [address] Referral ID Status Reason Start Date Expiration Date Visits Re quested Visits Authorized [id number] Closed 07/22/2020 07/22/2021 1 1 Encounter Details Date Type Department Care Team (Latest Contact Info) Description 08/09/2020 3:20 PM EDT TH Visit (TeleHealth) [place] [address] Lawrence Gar MD [facility] [place] [address] Gastroesophageal reflux disease, unspecified whether esophagitis present (Primary Dx); Alcohol-induced chronic pancreatitis; Screen for colon cancer Social History Tobacco Use Types Packs/Day Years Used Date Smoking Tobacco: Never Smokeless Tobacco: Never Sex and Gender Information Value Date Recorded Sex Assigned at Not on file Gender Identity Not on file Sexual Orientation Not on file documented as of this encounter Progress Notes * Lawrence Gar MD - 08/09/2020 3:20 PM EDT This is a telehealth visit due to the Covid epidemic. CC: Referred by Jovani Wharton DO for further evaluation of pancreatitis. HPI: He has a long history of alcohol overuse consuming up to 6 or 7 vodka drinks daily for many years for which she eventually had to be detoxed and states that he has been sober now for 121 days. His course has been complicated by at least 2 admissions for pancreatitis in 2019 but fortunately hissymptoms seem to have improved over the last several weeks. He describes episodes of upper abdominal discomfort associated with gas and bloating that sometimes would be relieved by belching or passing gas. He was recently begun on Creon which temporally associated with improvement in symptoms. He currently takes only 1 Creon capsule before each meal. His work-up of pancreatitis has included a CT scan most recently in May of this year that was notable for a calcified solitary gallstone, nondilated common bile duct and and fatty liver disease. There was no comment on that scan of pancreatitis. He subsequently saw Dr. Gregorio whose evaluationincluded an MRI of the pancreas in July which showed a hiatal hernia, a normal common bile duct and normal-appearing gallbladder and a fatty replaced pancreas. The patient requested a second opinionhere and was referred to me. He also has a history of acid reflux disease for which she takes a proton pump inhibitor and also is status post partial colectomy many years ago here at [facility] for diverticulitis. He has not had a colonoscopy for several years. As stated above he currently feels better with improvement in his abdominal pain and bloating over the last few weeks but he is concerned about the possibility that his symptoms will recur. Current Outpatient Medications on File Prior to Visit Medication Sig Dispense Refill ??? [id number] (Creon 6) 6,000-19,000 -30,000 unit Capsule, Delayed [...] 250 mg Tablet Take by mouth daily. No current facility-administered medications on file prior to visit. Patient Active Problem List Diagnosis Code ??? Pancreatitis K85.90 ??? Gastroesophageal reflux K21.9 ??? Diverticulitis K57.92 ??? Alcoholism F10.20 ??? HTN (hypertension) I10 ??? Chronic renal disease N18.9 ??? Anemia D64.9 ??? Gout M10.9 ??? HLD (hyperlipidemia) E78.5 ??? Lumbar spondylosis M47.816 ??? Gallstone K80.20 ??? Status post total knee replacement Z96.659 ??? Ruptured extensor tendon of hand or wrist S66.819A FH: Noncontributory. 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 He is a non-smoker. Alcohol use in the past as above. Review of Systems: Constitutional: no weight loss HEENT: no visual changes, no URI symptoms Cardio: no chest pain Resp: no cough, no SOB, no LEI or orthopnea Hem/Lymph: no new lumps or bumps on body GI: see HPI : no dysuria Integumentary: no new rashes Musculoskeletal: no new joint pains Neuro: no new numbness, weakness in extremities Objective: Physical Exam: No data found. Constitutional: Appears well-developed and well-nourished. Eyes: No scleral icterus. The remainder of the exam was deferred as this was a telehealth visit. Assessment and Plan: I suspect that he has some component of acute on chronic pancreatitis related to alcohol overuse inthe past. Fortunately at the present time his symptoms seem to be fairly well controlled with a combination of abstinence and perhaps some contribution from pancreatic enzyme replacement although he is taking a low- dose. He also has a history of acid reflux disease and diverticulitis which have notbeen recently evaluated. Plan: We had a discussion about pancreatitis as well as possible etiologies including alcohol overuse. I encouraged him to remain abstinent from alcohol and continue to take Creon for the present time. I suggested for further evaluation that we could do upper and lower endoscopy as well as endoscopic ultrasound to better examine his pancreas and biliary tree as well as to screen for complicationsof reflux including Sharma's esophagus and also to perform a screening colonoscopy on the same visit. Further management after those studies are performed. All of this 45 minute telehealth visit spent in discussion and coordination of care regarding pancreatitis. Lawrence Gar MD rn home care Director, GI Endoscopy Section of [place]astroenterology [place] [address] Cc:Jovani Wharton DO documented in this encounter Plan of Treatment Upcoming Encounters Date Type Department Care Team (Latest Contact Info) Description 01/02/2024 7:30 AM EDT Hospital Encounter [place] [address] Lawrence Gar MD [facility] [place] [address] 01/02/2024 7:30 AM EDT - 01/02/2024 8:30 AM EDT Surgery [place] [address] Lawrence Gar MD [facility] [place] [address] EGD, UPPER GI ENDOSCOPY (WRVU 2.09) 11/17/2024 4:20 PM EDT Office Visit [place] [address] Lwarence Gar MD [facility] [place] [address] Scheduled Orders Name Type Priority Associated Diagnoses Orde r Schedule ENDOSCOPY CASE REQUEST: COLONOSCOPY, DIAGNOSTIC, EGD, UPPER GI ENDOSCOPY, UPPER EUS- ENDOSCOPIC ULTRASOUND Procedures Routine Alcohol-induced chronic pancreatitis Screen for colon cancer Gastroesophageal reflux disease, unspecified whether esophagitis present Ordered: 08/09/2020 Scheduled Procedures Name Priority Associated Diagnoses Date/Ti me EGD, UPPER GI ENDOSCOPY (WRVU 2.09) Sharma's esophagus with dysplasia 01/02/2024 7:30 AM EDT documented as of this encounter Visit Diagnoses Diagnosis Gastroesophageal reflux disease, unspecified whether esophagitis present- Primary Alcohol-induced chronic pancreatitis Chronic pancreatitis Screen for colon cancer Special screening for malignant neoplasms, colon Sharma's esophagus with dysplasia Sharma's esophagus documented in this encounter Care Teams Body Former Relationship Specialty Start Date End Date Jovani Whatron DO [address] [place] [address] PCP - General Family Medicine 10/18/16 06/18/22 documented as of this encounter
--- OUTSIDE RECORDS SUMMARY | 2023-12-10 05:00 | XMS_ITS | Encounter Summary ---
Author Organization [facility] Address [facility] [place] [address] Care Team Providers Care Metal Miner Name Role Phone DioJovani franks Primary Care Provider Encounter Details Date Type Department Care Team (Late st Contact Info) Description 01/14/2020 11:00 AM EDT Office Visit Dermatology at [facility] [address] [place] [address] Deb Hamlin MD [facility] [address] [place] [address] Actinic keratoses; History of SCC (squamous cell carcinoma) of skin Social History Tobacco Use Types Packs/Day Years Used Date Smoking Tobacco: Never Smokeless Tobacco: Never Sex and Gender Information Value Date Recorded Sex Assigned at Not on file Gender Identity Not on file Sexual Orientation Not on file documented as of this encounter Progress Notes * Deb Hamlin MD - 01/14/2020 11:00 AM EDT DERMATOLOGY - ESTABLISHED PATIENT NOTE Date of service: 01/14/2020 Mathew Mendez : 1955 CC: waist up skin exam HPI: Mathew Mendez is a 64 y.o. established patient. Last seen by Dr. Hamlin: 07/13/2019 Last seen in [facility]: 07/13/2019 Here today with the following concerns: - Purchased sunscreen, but has only used a few times, hard to fit into his routine. - No specific lesions that are concerning. No spots that are changing colors, itching, or bleeding. Last FSE:??06/2019 Current sun protection:??baseball hat ?? [...] No ?? Other No ? 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 Medications: allopurinoL, amLODIPine, augmented betamethasone dipropionate, celecoxib, cyanocobalamin (Vitamin B-12), ibuprofen, lansoprazole, metoprolol succinate XL, and naltrexone Allergies Allergen Reactions ??? Morphine Hives Review of Systems: - General: Feels well. - Skin: No other skin concerns. Examination: - Constitutional: Patient was alert, well-appearing and in no noticeable distress. - Skin exam: The patient was asked to disrobe to the level of their comfort. Waist up skin examination of the scalp, hair, head, face, neck, back, chest, abdomen, right and left upper extremities was normal with the exception of the findings listed below. Notable findings/Assessment/Plan: Actinic keratoses - scattered ill defined gritty papules on the right jain x3, left cheek x2, left forehead x1, left ear x2 (mid & superior helix), right ear x2, - Reviewed diagnosis with patient and treatment options. - Patient opted to proceed with liquid nitrogen with two freeze thaw cycles Number of lesions - 10 The patient's consent for liquid nitrogen was obtained. Risks and benefits were explained. The possible need for additional liquid nitrogen was reviewed. Risks of increased pigmentation, decreased pigmentation, blister formation, infection, pain, and recurrence were all discussed. The patient tolerated the procedure well. Wound care was reviewed. - Recommended sun protective clothing, a bigger hat, & sun screen - Discussed 5FU. Will reconsider treatment in the winter. History of SCC - Well-healed scar on the left earlobe - No evidence of recurrence. RTC: Return in about 6 months (around 07/16/2020) for FSE (Hx of SCC) . Note initiated by Adela Pino CMA. Amy Stanton has performed the documentation for this encounter in the presence of and actingas a scribe for Dr. Hamlin. I performed the above scribed service and agree with the accuracy of the documentation in this encounter. Reviewed and signed by: Deb Hamlin MD Dermatology [facility] documented in this encounter Plan of Treatment Upcoming Encounters Date Type Department Care Team (Latest Contact Info) Description 01/02/2024 7:30 AM EDT Hospital En[place] [address] Lawrence Gar MD [facility] DR [place] [address] 01/02/2024 7:30 AM EDT - 01/02/2024 8:30 AM EDT [place] [address] Lawrence Gar MD [facility] [place] [address] EGD, UPPER GI ENDOSCOPY (WRVU 2.09) 11/17/2024 4:20 PM EDT Office [place] [address] Lawrence Gar MD [facility] [place] [address] Scheduled Procedures Name Priority Associated Diagnoses Date/Ti me EGD, UPPER GI ENDOSCOPY (WRVU 2.09) Sharma's esophagus with dysplasia 01/02/2024 7:30 AM EDT documented as of this encounter Visit Diagnoses Diagnosis Actinic keratoses Actinic keratosis History of SCC (squamous cell carcinoma) of skin Personal history of other malignant neoplasm of skin Sharma's esophagus with dysplasia Sharma's esophagus documented in this encounter Care Teams Metal Miner Relationship Specialty Start Date End Date Jovani Wharton DO [address] [place] [address] PCP - General Family Medicine 10/18/16 06/18/22 documented as of this encounter
--- OUTSIDE RECORDS SUMMARY | 2023-12-10 05:00 | XMS_ITS | Encounter Summary ---
Author Organization [facility] Address [facility] [place] [address] Care Team Providers Care Shank Burnisher Name Role Phone DioJovani franks Primary Care Provider Reason for Referral * Consultation (Routine) - Closed Specialty Diagnoses / Procedures Referred By Devaughn bobo Referred To Contact Dermatology Diagnoses SCC (squamous cell carcinoma) Deb Hamlin MD [facility] DR [place] [address] Dominguez Lopez MD [facility] [address] [place] [address] Referral ID Status Reason Start Date Expiration Date V isits Requested Visits Authorized [id number] Closed Consult, Test & Treat 04/29/2020 04/29/2021 1 1 Encounter Details Date Type Department Care Team (Late st Contact Info) Description 04/29/2020 Orders Only Dermatology at [facility] [address] [place] [address] Deb Hamlin MD [facility] [address] [place] [address] SCC (squamous cell carcinoma) Social History Tobacco Use Types Packs/Day Years [...] 7:30 AM EDT Hospital En[place] [address] Lawrence Gar MD [facility] [place] [address] 01/02/2024 7:30 AM EDT - 01/02/2024 8:30 AM EDT [place] [address] Lawrence Gar MD [facility] [place] [address] EGD, UPPER GI ENDOSCOPY (WRVU 2.09) 11/17/2024 4:20 PM EDT Office [place] [address] Lawrence Gar MD [facility] [place] [address] Scheduled Procedures Name Priority Associated Diagnoses Date/Ti ms EGD, UPPER GI ENDOSCOPY (WRVU 2.09) Sharma's esophagus with dysplasia 01/02/2024 7:30 AM EDT Scheduled Referrals Name Type Priority Associated Diagnoses Order Schedule Referral to Dermatology Outpatient Referral Routine SCC (squamous cell carcinoma) Ordered: 04/29/2020 documented as of this encounter Visit Diagnoses Diagnosis SCC (squamous cell carcinoma) Squamous cell carcinoma of skin, site unspecified Sharma's esophagus with dysplasia Sharma's esophagus documented in this encounter Care Teams Shank Burnisher Relationship Specialty Start Date End Date Jovani Wharton DO [address] [place] [address] PCP - General Family Medicine 5/25/17 1/23/23 documented as of this encounter
--- OUTSIDE RECORDS SUMMARY | 2023-12-10 05:00 | XMS_ITS | Encounter Summary ---
[place] [address] Care Team Providers Care Digital Camera Technician Name Role Phone DioJovani franks Primary Care Provider Reason for Visit * Reason Onset Date Comments Reminder Appointment 08/09/2020 Encounter Details Date Type Department Care Team (Late st Contact Info) Description 08/09/2020 Telephone [place] [address] Whitney Reyes CCMA Reminder Appointment Social History Tobacco Use Types Packs/Day Years Used Date Smoking Tobacco: Never Smokeless Tobacco: Never Sex and Gender Information Value Date Recorded Sex Assigned at Not on file Gender Identity Not on file Sexual Orientation Not on file documented as of this encounter Miscellaneous Notes * Telephone Encounter - Whitney Reyes LNA - 08/09/2020 1:47 PM EDT Called patient to review medications and allergies for their upcoming gastroenterology Type of Appointment: Telehealth appointment. Reach Patient during MA Check: Yes Notes for the provider: Notes for the nurse: documented in this encounter Plan of Treatment Upcoming Encounters Date Type Department Care Team (Latest Contact Info) Description 01/02/2024 7:30 AM EDT Hospital Encounter [place] [address] Lawrence Gar MD [facility] [place] [address] 01/02/2024 7:30 AM EDT - 01/02/2024 8:30 AM EDT Surgery [place] [address] Lawrence Gar MD [facility] [place] [address] EGD, UPPER GI ENDOSCOPY (WRVU 2.09) 11/17/2024 4:20 PM EDT Office Visit [place] [address] Lawrence Gar MD [facility] [place] [address] Scheduled Procedures Name Priority Associated Diagnoses Date/Ti me EGD, UPPER GI ENDOSCOPY (WRVU 2.09) Sharma's esophagus with dysplasia 01/02/2024 7:30 AM EDT documented as of this encounter Visit Diagnoses Not on filedocumented in this encounter Care Teams Digital Camera Technician Relationship Specialty Start Date End Date Jovani Wharton DO [address] [place] [address] PCP - General Family Medicine 10/18/16 06/18/22 documented as of this encounter
--- OUTSIDE RECORDS SUMMARY | 2023-12-10 05:00 | XMS_ITS | Encounter Summary ---
Author Organization [facility] [place] [address] Care Team Providers Care Street Light Servicer Supervisor Name Role Phone DioJovani franks Primary Care Provider Encounter Details Date Type Department Care Team (Late st Contact Info) Description 04/07/2021 [facility] Only [address] [phone] Jorge Chauhan MD [address] [place] [address] Social History Tobacco Use Types Packs/Day Years [...] 7:30 AM EDT Hospital Encounter [place] [address] Lawrence Gar MD [facility] [place] [address] 01/02/2024 7:30 AM EDT - 01/02/2024 8:30 AM EDT [place] [address] Lawrence Gar MD [facility] DR [place] [address] EGD, UPPER GI ENDOSCOPY (WRVU 2.09) 11/17/2024 4:20 PM EDT Office [place] [address] Lawrence Gar MD [facility] DR [place] [address] Scheduled Procedures Name Priority Associated Diagnoses Date/Ti me EGD, UPPER GI ENDOSCOPY (WRVU 2.09) Sharma's esophagus with dysplasia 01/02/2024 7:30 AM EDT documented as of this encounter Procedures Procedure Name Priority Date/Time Associated Diagnosis Comments US EXTREMITY VENOUS DUPLEX STAT 04/07/2021 1:25 PM EST documented in this encounter Results * US EXTREMITY VENOUS DUPLEX (04/07/2021 1:25 PM EST) PT CLASS O RAD ADMITDTTM RAD PT [facility] INFO [id number]^J ENSEN^KRISTO PHER RAD EXAM DESC UEXTDUP^US LEG VEINS UNI^RIS RAD Anatomical Region Laterality Modality Other Impressions 04/07/2021 1:37 PM EST No right lower extremity DVT. Calf edema. Thank you for letting us participate in the care of this patient. ??If you are a health care provider and have any questions regarding this report, please contact the number below. ??For patients who have questions please contact the health ambulatory care nurse that requested your imaging first. ? Narrative 04/07/2021 1:37 PM EST EXAMINATION: US LEG VEINS UNI CLINICAL HISTORY: Rule out DVT. New leg edema/pain recent plane travel. TECHNIQUE: Lower extremity venous color and spectral doppler ultrasound investigating the common femoral vein, greater saphenous vein/femoral vein junction, deep femoral vein, superficial femoral vein, popliteal vein, posterior tibial and peroneal of the calf, and the contralateral common femoral vein was peformed on the right. COMPARISON: None FINDINGS: There is normal compression, augmentation, color flow, and phasicity in all imaged vessels, with no thrombus.Calf edema. Procedure Note Miguel Vasquez MD - 04/07/2021 EXAMINATION: US LEG VEINS UNI CLINICAL HISTORY: Rule out DVT. New leg edema/pain recent plane travel. TECHNIQUE: Lower extremity venous color and spectral doppler ultrasound investigating the common femoral vein, greater saphenous vein/femoralvein junction, deep femoral vein, superficial femoral vein, popliteal vein,posterior tibial and peroneal of the calf, and the contralateral common femoral veinwas peformed on the right. COMPARISON: None FINDINGS: There is normal compression, augmentation, color flow, and phasicity inall imaged vessels, with no thrombus.Calf edema. IMPRESSION No right lower extremity DVT. Calf edema. Thank you for letting us participate in the care of this patient. If youare a health care provider and have any questions regarding this report,please contact the number below. For patients who have questions please contactthe health ambulatory care nurse that requested your imaging first. Jorge Chauhan MD [facility] documented in this encounter Visit Diagnoses Not on filedocumented in this encounter Care Teams Street Light Servicer Supervisor Relationship Specialty Start Date End Date Jovani Wharton DO [address] [place] [address] PCP - General Family Medicine 10/18/16 06/18/22 documented as of this encounter
--- OUTSIDE RECORDS SUMMARY | 2023-12-10 05:00 | XMS_ITS | Encounter Summary ---
Author Organization [facility] [place] [address] Care Team Providers Care Open Cut Examiner Name Role Phone Jovani Wharton DO Primary Care Provider Encounter Details Date Type Department Care Team (Late st Contact Info) Description 06/02/2020 Ancillary Procedure [place] [phone] Jovani Wharton DO [address] [place], [place] [address] Social History Tobacco Use Types Packs/Day Years [...] 7:30 AM EDT Hospital [place] [phone] Lawrence Gar MD [facility] DR [place] [address] 01/02/2024 7:30 AM EDT - 01/02/2024 8:30 AM EDT [place] [phone] Lawrence Gar MD [facility] DR [place] [address] EGD, UPPER GI ENDOSCOPY (WRVU 2.09) 11/17/2024 4:20 PM EDT [place] [address] Lawrence Gar MD [facility] DR [place] [address] Scheduled Procedures Name Priority Associated Diagnoses Date/Ti me EGD, UPPER GI ENDOSCOPY (WRVU 2.09) Sharma's esophagus with dysplasia 01/02/2024 7:30 AM EDT documented as of this encounter Procedures Procedure Name Priority Date/Time Associated Diagnosis Comments FILM LIBRARY STORAGE ONLY CT ABDOMEN AND PELVIS Routine 06/02/2020 12:00 AM EST documented in this encounter Results * Film Library- Storage Only CT Abdomen & Pelvis (06/02/2020 12:00 AM EST) Narrative ENRIQUE - 07/23/2021 9:13 PM EST This exam is auto-finalizing. It's purpose is for storage only. Jovani NEWTON FILM LIBRARY ORD ERABLES [place], [place] documented in this encounter Visit Diagnoses Not on filedocumented in this encounter Care Teams Open Cut Examiner Relationship Specialty Start Date End Date Jovani Wharton DO [address] [place] [address] PCP - General Family Medicine 10/18/16 06/18/22 documented as of this encounter
--- OUTSIDE RECORDS SUMMARY | 2023-12-10 05:00 | XMS_ITS | Encounter Summary ---
Author Organization [facility] Address [facility] [place] [address] Care Team Providers Care Shop Superintendent Name Role Phone Jovani Wharton DO Primary Care Provider Reason for Visit * Consultation (Routine) - Specialty Diagnoses / Procedures Referred By Devaughn bobo Referred To Contact Nephrology Diagnoses Acute kidney failure, unspecified Chronic kidney disease, unspecified Jovani Wharton DO [address] [place] [address] [facility]phrology [address] [place] [phone] Referral ID Status Reason Start Date Expiration Date V isits Requested Visits Authorized [id number] Consult, Test & Treat PCP Updated and/or Approved 12/15/2019 12/14/2020 1 1 Encounter Details Date Type Department Care Team (Latest Contact Info) Description 04/20/2020 4:30 PM EST Office Visit Neph[place] [address] Jorge Gonzales MD [facility] [place] [address] CKD (chronic kidney disease) stage 2, GFR 60-89 ml/min Social History Tobacco Use Types Packs/Day Years Used Date Smoking Tobacco: Never Smokeless Tobacco: Never Sex and Gender Information Value Date Recorded Sex Assigned at Not on file Gender Identity Not on file Sexual Orientation Not on file documented as of this encounter Last Filed Vital Signs Vital Sign Reading Time Taken Comments Blood Pressure 129/91 04/20/2020 4:15 PM EST Pulse 72 04/20/2020 4:15 PM EST Temperature - - Respiratory Rate - - Oxygen Saturation - - Inhaled Oxygen Concentration - - Weight 73 kg (161 lb) 04/20/2020 4:15 PM EST Height 167.6 cm (5' 6) 04/20/2020 4:15 PM EST Body Mass Index 25.99 04/20/2020 4:15 PM EST documented in this encounter Progress Notes * Jorge Gonzales MD - 04/20/2020 4:30 PM EST Patient returns for follow-up of his chronic renal insufficiency. He has not been seen for a coupleyears. During that time he had been drinking more heavily. He had a recent admission to [facility] with pancreatitis. On 04-11-2020 his creatinine was 2.52 when he was admitted and the following day after some hydration his creatinine decreased to 1.84 mg/dL. The patient has been abstinent for about a week and feels better. 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 At times he is taken some Advil but for the most part decreased his intake of this following her past visit. Physical exam:BP (!) 129/91 Pulse 72 Ht 167.6 cm (5' 6) Wt 73 kg (161 lb) BMI 25.99 kg/m?? Pleasant man in no acute distress, lungs clear, cardiac exam unremarkable, abdomen benign, extremities without edema. Recent Results (from the past 72 hour(s)) Protein/Creatinine Ratio, urine Result Value Ref Range U Creatinine 128 mg/dL U Protein Ran 110 (H) 0 - 12 mg/dL Prot/Cre Ratio 0.9 ratio Basic Metabolic Panel (non-fasting) Result Value Ref Range Glucose Lvl 117 65 - 199 mg/dL BUN 56 (H) 10 - 20 mg/dL Creatinine 2.71 (H) 0.80 - 1.50 mg/dL Sodium 140 135 - 145 mmol/L Potassium 4.5 3.5 - 5.0 mmol/L Chloride 107 98 - 107 mmol/L CO2 21 (L) 22 - 31 mmol/L Anion Gap 12 5 - 15 mmol/L Calcium 9.7 8.5 - 10.5 mg/dL eGFR 23 (L) >=60 mL/min/1.73 m?? eGFR 27 (L) >=60 mL/min/1.73 m?? PTH Result Value Ref Range PTH 51 15 - 65 pg/mL Hepatic Function Panel Result Value Ref Range Total Protein 7.1 6.1 - 8.0 gm/dL Albumin 4.5 3.2 - 5.2 gm/dL AST 29 0 - 39 unit/L ALT 43 0 - 55 unit/L Alk Phos 82 40 - 130 unit/L Total Bilirubin 0.2 0.2 - 1.3 mg/dL Bili, Direct 0.1 0.0 - 0.3 mg/dL Hemogram Result Value Ref Range WBC 5.0 4.0 - 9.5 x10(3)/mcL RBC 3.53 (L) 4.58 - 5.54 x10(6)/mcL Hemoglobin 11.0 (L) 13.7 - 16.5 gm/dL Hematocrit 34.3 (L) 40.5 - 48.5 % MCV 97.2 (H) 82.9 - 93.1 fL MCH 31.2 27.5 - 32.1 pg MCHC 32.1 32.0 - 35.7 gm/dL Platelets 211 145 - 357 x10(3)/mcL RDWSD 48.3 (H) 36.0 - 45.0 fL RDWCV 13.5 11.4 - 13.8 % MPV 10.6 7.6 - 12.9 fL nRBC % Auto 0.0 % nRBC Abs Auto 0.000 0.000 - 0.000 x10(3)/mcL Differential, Automated Result Value Ref Range Neutrophils % 58.6 % Neutr Abs (ANC) 2.93 1.70 - 6.10 x10(3)/mcL Lymphocytes % 18.6 % Lymphocytes Abs 0.9 0.9 - 3.2 x10(3)/mcL Monocytes % 15.2 % Monocyte Abs 0.8 0.3 - 0.9 x10(3)/mcL Eosinophils % 6.0 % Eosinophils Abs 0.3 0.0 - 0.4 x10(3)/mcL Basophils % 1.4 % Basophils Abs 0.1 0.0 - 0.1 x10(3)/mcL Immature Gran % 0.20 % Raya Gran Abs 0.01 0.00 - 0.04 x10(3)/mcL Assessment and plan: Patient with progressive renal insufficency. Will cotinue to follow. Has mild renal anemia. Will plan on seeing him in 6 months. documented in this encounter Plan of Treatment Upcoming Encounters Date Type Department Care Team (Latest Contact Info) Description 01/02/2024 7:30 AM EDT Hospital Encounter [place] [address] Lawrence Gar MD [facility] DR GASTROENTER[place] [address] 01/02/2024 7:30 AM EDT - 01/02/2024 8:30 AM EDT Surgery [place] [address] Lawrence Gar MD [facility] DR GASTROENTER[place] [address] EGD, UPPER GI ENDOSCOPY (WRVU 2.09) 11/17/2024 4:20 PM EDT Office [place] [address] Lawrence Gar MD [facility] DR [place]STROENTER[place] [address] Scheduled Orders Name Type Priority Associated Diagnoses Orde r Schedule Protein/Creatinine Ratio, urine Lab Routine CKD (chronic kidney disease) stage 2, GFR 60-89 ml/min Expected: 04/20/2020 (Approximate), Expires: 04/20/2021 Basic Metabolic Panel (non-fasting) Lab STAT CKD (chronic kidney disease) stage 2, GFR 60-89 ml/min Expected: 04/20/2020 (Approximate), Expires: 04/20/2021 CBC (with Diff) Lab STAT CKD (chronic kidney disease) stage 2, GFR 60-89 ml/min Expected: 04/20/2020 (Approximate), Expires: 04/20/2021 Scheduled Procedures Name Priority Associated Diagnoses Date/Ti sc EGD, UPPER GI ENDOSCOPY (WRVU 2.09) Sharma's esophagus with dysplasia 01/02/2024 7:30 AM EDT documented as of this encounter Procedures Procedure Name Priority Date/Time Associated Diagnosis Comments HC VENIPUNCTURE Routine 04/20/2020 5:20 PM EST CKD (chronic kidney disease) stage 2, GFR 60-89 ml/min HEMOGRAM STAT 04/20/2020 5:20 PM EST CKD (chronic kidney disease) stage 2, GFR 60-89 ml/min DIFFERENTIAL, AUTOMATED STAT 04/20/2020 5:20 PM EST CKD (chronic kidney disease) stage 2, GFR 60-89 ml/min HC CBC,PLT & AUTO DIFF STAT 04/20/2020 5:20 PM EST CKD (chronic kidney disease) stage 2, GFR 60-89 ml/min HEPATIC FUNCTION PANEL Routine 04/20/2020 5:20 PM EST CKD (chronic kidney disease) stage 2, GFR 60-89 ml/min BASIC METABOLIC PANEL (NON-FASTING) STAT 04/20/2020 5:20 PM EST CKD (chronic kidney disease) stage 2, GFR 60-89 ml/min HC PROTEIN, QUANTITATIVE, URINE Routine 04/20/2020 4:30 PM EST CKD (chronic kidney disease) stage 2, GFR 60-89 ml/min documented in this encounter Results * Differential, Automated (04/20/2020 5:20 PM EST) Neutrophils % 58.6 % [facility] Neutr Abs (ANC) 2.93 1.70 - 6.10 x10(3)/[facility] Lymphocytes % 18.6 % [facility] Lymphocytes Abs 0.9 0.9 - 3.2 x10(3)/[facility] Monocytes % 15.2 % [facility] Monocyte Abs 0.8 0.3 - 0.9 x10(3)/[facility] Eosinophils % 6.0 % [facility] Eosinophils Abs 0.3 0.0 - 0.4 x10(3)/[facility] Basophils % 1.4 % [facility] Basophils Abs 0.1 0.0 - 0.1 x10(3)/[facility] Immature Gran % 0.20 % [facility] Comment: Immature granulocytes(IG's)percentage and absolute count will include metamyelocytes, myelocytes, and promyelocytes. Blood smears from CBCs yielding IG's will be scanned manually for concordance. If this scan disagrees with the automated IG or if promyelocytes are noted, a manual differential will be performed. Raya Gran Abs 0.01 0.00 - 0.04 x10(3)/[facility] Blood specimen (specimen) 04/20/2020 5:20 PM EST 04/20/2020 5:27 PM EST Narrative Resulting Agency Comment Spec In Lab Jorge Gonzales MD HEMATOLOGY ORDERABL ES [facility] [place] [address] * (ABNORMAL) Hemogram (04/20/2020 5:20 PM EST) WBC 5.0 4.0 - 9.5 x10(3)/[facility] RBC 3.53(L) 4.58 - 5.54 x10(6)/[facility] Hemoglobin 11.0(L) 13.7 - 16.5 gm/dL [facility] Hematocrit 34.3(L) 40.5 - 48.5 % [facility] MCV 97.2(H) 82.9 - 93.1 fL [facility] MCH 31.2 27.5 - 32.1 pg [facility] MCHC 32.1 32.0 - 35.7 gm/dL [facility] Platelets 211 145 - 357 x10(3)/[facility] RDWSD 48.3(H) 36.0 - 45.0 [facility] RDWCV 13.5 11.4 - 13.8 % [facility] MPV 10.6 7.6 - 12.9 [facility] nRBC % Auto 0.0 % [facility] nRBC Abs Auto 0.000 0.000 - 0.000 x10(3)/[facility] Blood specimen (specimen) 04/20/2020 5:20 PM EST 04/20/2020 5:27 PM EST Narrative Resulting Agency Comment Spec In Lab Jorge Gonzales MD HEMATOLOGY ORDERABL ES Performing Organization Address [facility] Co de Phone Number [facility] [place] [address] * PTH (04/20/2020 5:20 PM EST) PTH 51 15 - 65 pg/mL [facility] Blood specimen (specimen) 04/20/2020 5:20 PM EST 04/20/2020 5:27 PM EST Narrative Resulting Agency Comment Spec In Lab Jorge Gonzales MD CHEMISTRY ORDERABLE S Performing Organization Address [facility] Co de Phone Number [facility] [place] [address] * (ABNORMAL) Basic Metabolic Panel (non-fasting) (04/20/2020 5:20 PM EST) Glucose Lvl 117 65 - 199 mg/dL [facility] Comment:Diabetes: >=200 mg/d L plus symptoms BUN 56(H) 10 - 20 mg/dL [facility] Creatinine 2.71(H) 0.80 - 1.50 mg/dL [facility] Sodium 140 135 - 145 mmol/L [facility] Potassium 4.5 3.5 - 5.0 mmol/L [facility] Comment: Please note: ??Patients with WBC >100,000 may have falsely elevated Potassium levels. ??For accurate Potassium quantification in these patients send serum separator tube (gold top) for subsequent determinations. ??Contact the Clinical Chemistry Laboratory if there are any questions. Chloride 107 98 - 107 mmol/L [facility] CO2 21(L) 22 - 31 mmol/L [facility] Anion Gap 12 5 - 15 mmol/L [facility] Calcium 9.7 8.5 - 10.5 mg/dL [facility] Estimated GFR 23(L) >=60 mL/min/1. 73 m?? [facility] Comment: The eGFR was calculated using the CKD-EPI equation. As with all creatinine based estimates of kidney function, eGFR values calculated with the CKD-EPI equation are not accurate in patients with acute kidney failure, extremes of body mass or the acutely ill. [email or web address] eGFR 27(L) >=60 mL/min/1. 73 m?? [facility] Comment: The eGFR was calculated using the CKD-EPI equation. As with all creatinine based estimates of kidney function, eGFR values calculated with the CKD-EPI equation are not accurate in patients with acute kidney failure, extremes of body mass or the acutely ill. [email or web address] Blood specimen (specimen) 04/20/2020 5:20 PM EST 04/20/2020 5:27 PM EST Narrative Resulting Agency Comment Spec In Lab Jorge Gonzales MD CHEMISTRY ORDERABLE S [facility] [place] [address] * Hepatic Function Panel (04/20/2020 5:20 PM EST) Total Protein 7.1 6.1 - 8.0 gm/dL [facility] Albumin 4.5 3.2 - 5.2 gm/dL [facility] AST 29 0 - 39 unit/L [facility] ALT 43 0 - 55 unit/L [facility] Alk Phos 82 40 - 130 unit/L [facility] Total Bilirubin 0.2 0.2 - 1.3 mg/dL [facility] Bili, Direct 0.1 0.0 - 0.3 mg/dL [facility] Blood specimen (specimen) 04/20/2020 5:20 PM EST 04/20/2020 5:27 PM EST Narrative Resulting Agency Comment Spec In Lab Jorge Gonzales MD CHEMISTRY ORDERABLE S Performing Organization Address City/[facility] Co de Phone Number [facility] [place] [address] * (ABNORMAL) Protein/Creatinine Ratio, urine (04/20/2020 4:30 PM EST) U Creatinine 128 mg/dL [facility] U Protein Ran 110(H) 0 - 12 mg/dL [facility] Prot/Cre Ratio 0.9 ratio [facility] Urine specimen (specimen) 04/20/2020 4:30 PM EST 04/20/2020 5:12 PM EST Narrative Resulting Agency Comment Spec In Lab Jorge Gonzales MD URINE ORDERABLES Performing Organization Address City/[facility] Co de Phone Number [facility] [place] [address] documented in this encounter Visit Diagnoses Diagnosis CKD (chronic kidney disease) stage 2, GFR 60-89 ml/min Chronic kidney disease, Stage II (mild) Sharma's esophagus with dysplasia Sharma's esophagus documented in this encounter Care Teams Shop Superintendent Relationship Specialty Start Date End Date Jovani Wharton DO [address] [place] [address] [address] [place] [address] PCP - General Family Medicine 10/18/16 06/18/22 documented as of this encounter
--- OUTSIDE RECORDS SUMMARY | 2023-12-10 05:00 | XMS_ITS | Encounter Summary ---
Author Organization [facility] Address 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 Date of : 1955 Today's Date: 06/14/2020 REFERRING PROVIDER: Deb Hamlin MD CC: Mohs micrographic surgery for treatment of a cutaneous tumor HPI: Mathew Mendez is a 65 y.o. 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 The dermatologic preoperative information sheet was reviewed with pertinent positive and negative as below. DERMATOLOGIC PRE-OPERATIVE EVALUATION AND REVIEW OF SYSTEMS History of Mohs surgery? Yes ~1 year ago (SCC Left [place]) Pacemaker/Defibrillator? no Joint replacement or other implantable devices (e.g. Cochlear implant)? If yes then when? Yes, right knee about 6 years ago Do you take a blood [...] 7:30 AM EDT Hospital [place] [address] [place] Gar MD [facility] [place] [address] 01/02/2024 7:30 AM EDT - 01/02/2024 8:30 AM EDT [place] [address] [place] Gar MD [facility] [place] [address] EGD, UPPER GI ENDOSCOPY (WRVU 2.09) 11/17/2024 4:20 PM EDT Office [place] [address] [place] Gar MD [facility] 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
--- OUTSIDE RECORDS SUMMARY | 2023-12-10 05:00 | XMS_ITS | Encounter Summary ---
Author Organization [facility] Address [facility] [place] [address] Care Team Providers Care Unified Communications Architect Name Role Phone DioJovani franks Primary Care Provider [phone] Encounter Details Date Type Department Care Team (Late st Contact Info) Description 01/21/2020 Orders Only Neph[place] [address] Jorge Gonzales MD [facility] [place] [address] CKD (chronic kidney disease) stage 2, GFR [...] 7:30 AM EDT Hospital Encounter [place] [address] [place] Gar MD [facility] [place] [address] 01/02/2024 7:30 AM EDT - 01/02/2024 8:30 AM EDT Surgery [place] [address] [place] Gar MD [facility] [place] [address] EGD, UPPER GI ENDOSCOPY (WRVU 2.09) 11/17/2024 4:20 PM EDT Office [place] [address] [place] Gar MD [facility] [place] [address] Scheduled Procedures Name Priority Associated Diagnoses Date/Ti me EGD, UPPER GI ENDOSCOPY (WRVU 2.09) Sharma's esophagus with dysplasia 01/02/2024 7:30 AM EDT documented as of this encounter Results * PTH (04/20/2020 5:20 PM EST) [facility] PTH 51 15 - 65 pg/mL [facility] Blood specimen (specimen) 04/20/2020 5:20 PM EST 04/20/2020 5:27 PM EST Narrative Resulting Agency Comment Spec In Lab Jorge Gonzales MD CHEMISTRY ORDERABLE S [facility] [place] [address] * (ABNORMAL) Basic Metabolic Panel (non-fasting) (04/20/2020 5:20 PM EST) [facility] Glucose Lvl 117 65 - 199 mg/dL [facility] Comment:Diabetes: >=200 mg/d L plus symptoms BUN 56(H) 10 - 20 mg/dL [facility] Creatinine 2.71(H) 0.80 - 1.50 mg/dL [facility] Sodium 140 135 - 145 mmol/L [facility] Potassium 4.5 3.5 - 5.0 mmol/L [facility] Comment: Please note: ??Patients with WBC >100,000 may have falsely elevated Potassium levels. ??For accurate Potassium quantification in these patients send serum separator tube (gold top) for subsequent determinations. ??Contact the Clinical Chemistry Laboratory if there are any questions. Chloride 107 98 - 107 mmol/L [facility] CO2 21(L) 22 - 31 mmol/L [facility] Anion Gap 12 5 - 15 mmol/L [facility] Calcium 9.7 8.5 - 10.5 mg/dL [facility] Estimated GFR 23(L) >=60 mL/min/1. 73 m?? [facility] Comment: The eGFR was calculated using the CKD-EPI equation. As with all creatinine based estimates of kidney function, eGFR values calculated with the CKD-EPI equation are not accurate in patients with acute kidney failure, extremes of body mass or the acutely ill. http://NiteTables/[facility] eGFR 27(L) >=60 mL/min/1. 73 m?? [facility] Comment: The eGFR was calculated using the CKD-EPI equation. As with all creatinine based estimates of kidney function, eGFR values calculated with the CKD-EPI equation are not accurate in patients with acute kidney failure, extremes of body mass or the acutely ill. http://NiteTables/[facility] Blood specimen (specimen) 04/20/2020 5:20 PM EST 04/20/2020 5:27 PM EST Narrative Resulting Agency Comment Spec In Lab Jorge Gonzales MD CHEMISTRY ORDERABLE S [facility] [place] [address] * (ABNORMAL) Protein/Creatinine Ratio, urine (04/20/2020 4:30 PM EST) U Creatinine 128 mg/dL [facility] U Protein Ran 110(H) 0 - 12 mg/dL [facility] Prot/Cre Ratio 0.[address] [facility] Urine specimen (specimen) 04/20/2020 4:30 PM EST 04/20/2020 5:12 PM EST Narrative Resulting Agency Comment Spec In Lab Jorge Gonzales MD URINE ORDERABLES [facility] [place] [address] documented in this encounter Visit Diagnoses Diagnosis CKD (chronic kidney disease) stage 2, GFR 60-89 ml/min Chronic kidney disease, Stage II (mild) Sharma's esophagus with dysplasia Sharma's esophagus documented in this encounter Care Teams Unified Communications Architect Relationship Specialty Start Date End Date Jovani Wharton DO [address] [place] [address] PCP - General Family Medicine 10/18/16 06/18/22 documented as of this encounter
--- OUTSIDE RECORDS SUMMARY | 2023-12-10 05:00 | XMS_ITS | Encounter Summary ---
Author Organization [facility] Address [facility] [place] [address] Care Team Providers Care Plant Biology Professor Name Role Phone DioJovani franks Primary Care Provider [phone] Encounter Details Date Type Department Care Team (Latest Contact Info) Description 06/20/2020 1:45 PM EST Clinical Support Dermatology at [address] [address] Dominguez Lopez MD [facility] [place] [address] Visit for wound check Social History Tobacco Use Types Packs/Day Years Used Date Smoking Tobacco: Never Smokeless Tobacco: Never Sex and Gender Information Value Date Recorded Sex Assigned at Not on file Gender Identity Not on file Sexual Orientation Not on file documented as of this encounter Progress Notes * Dominguez Lopez MD - 06/20/2020 1:45 PM EST Images from the original note were not included. Dermatologic Surgery Post-Operative Wound Check Patient: Mathew Mendez Today's Date: 06/20/2020 Date of : 1955 Chief complaint: [x] Wound check [] Suture removal History of Present Illness: Mathew Mendez is a 65 y.o. male presents today for status post Mohs micrographic surgery for squamous cell carcinoma, invasive well differentiated, with surgery date 06/14/2020, repaired by postauricular interpolation flap. Today, the patient reports contentment with the scar. Patient denies post- operative course complications and had an uneventful post-op course. Patient states the gauze under flap came out in the shower. Examination: Focused examination performed of the surgical site. This reveals a well healing flap. Assessment: 1. Normal healing post-surgical site without any signs/symptoms of infection. Plan: 1. Continue to apply Vaseline daily. 2. Follow up 06/23/2020 for suture removal, flap take down scheduled for Saturday07/04/2020. Instructed patient to begin new antibiotic the evening before. Prescription sent to [facility] in [place], [place]. Dominguez Lopez MD PhD Mohs Micrographic Surgery and Dermatologic Oncology Department of Dermatology documented in this encounter Plan of Treatment Upcoming Encounters Date Type Department Care Team (Latest Contact Info) Description 01/02/2024 7:30 AM EDT Hospital Encounter [place] [address] [place] Gar MD [facility] [place] [address] 01/02/2024 7:30 AM EDT - 01/02/2024 8:30 AM EDT Surgery [place] [address] [place] Gar MD [facility] [place] [address] EGD, UPPER GI ENDOSCOPY (WRVU 2.09) 11/17/2024 4:20 PM EDT Office Visit [place] [address] [place] Gar MD [facility] [place] [address] Scheduled Procedures Name Priority Associated Diagnoses Date/Ti me EGD, UPPER GI ENDOSCOPY (WRVU 2.09) Sharma's esophagus with dysplasia 01/02/2024 7:30 AM EDT documented as of this encounter Visit Diagnoses Diagnosis Visit for wound check Encounter for other specified aftercare Sharma's esophagus with dysplasia Sharma's esophagus documented in this encounter Care Teams Plant Biology Professor Relationship Specialty Start Date End Date Jovani Wharton DO [address] [place] [address] [address] PCP - General Family Medicine 10/18/16 06/18/22 documented as of this encounter
--- OUTSIDE RECORDS SUMMARY | 2023-12-10 05:00 | XMS_ITS | Encounter Summary ---
Author [place] [address] Care Team Providers Care Gauge Controller Name Role Phone DioJovani franks Primary Care Provider Encounter Details Date Type Department Care Team (Late st Contact Info) Description 04/14/2021 Telephone [place]phrology [place] [address] Christiana Haq Social History Tobacco [...] * Telephone Encounter - Christiana Haq - 04/14/2021 2:34 PM EST LM for Pt to call office to schedule follow up appointment per Pts request. Let Pt know that is semi retired but we can schedule him with our TONGUE STITCHER. documented in this encounter Plan of Treatment Upcoming Encounters Date Type Department Care Team (Latest Contact Info) Description 01/02/2024 7:30 AM EDT Hospital Encounter [place] [address] [place] Gar MD [facility] [place] [address] 01/02/2024 7:30 AM EDT - 01/02/2024 8:30 AM EDT [place] [address] [place] Gar MD [facility] DR [place] [address] EGD, UPPER GI ENDOSCOPY (WRVU 2.09) 11/17/2024 4:20 PM EDT Office [place] [address] [place] Gar MD [facility] [place] [address] Scheduled Procedures Name Priority Associated Diagnoses Date/Ti me EGD, UPPER GI ENDOSCOPY (WRVU 2.09) Sharma's esophagus with dysplasia 01/02/2024 7:30 AM EDT documented as of this encounter Visit Diagnoses Not on filedocumented in this encounter Care Teams Gauge Controller Relationship Specialty Start Date End Date Jovani Wharton DO [address] [place] [address] PCP - General Family Medicine 10/18/16 06/18/22 documented as of this encounter
--- OUTSIDE RECORDS SUMMARY | 2023-12-10 05:01 | XMS_ITS | Encounter Summary ---
Author Organization [facility] [place] [address] Care Team Providers Care Time Cycle Operator Name Role Phone Slade Tran MD Primary Care Provider [phone] Encounter Details Date Type Department Care Team (Late st Contact Info) Description 08/04/2003 Orders Only [place] [address] Balbir Conroy MD [facility] [place] [address] Social History Tobacco Use Types Packs/Day Years Used Date Smoking Tobacco: Never Assessed Sex and Gender Information Value Date Recorded Sex Assigned at Not on file Gender Identity Not on file Sexual Orientation Not on file documented as of this encounter Plan of Treatment Upcoming Encounters Date Type Department Care Team (Latest Contact Info) Description 01/02/2024 7:30 AM EDT Hospital Encounter [place] [address] [place] Gar MD [facility] DR [place] [address] 01/02/2024 7:30 AM EDT - 01/02/2024 8:30 AM EDT Surgery [place] [address] [place] Gar MD [facility] DR [place] [address] EGD, UPPER GI ENDOSCOPY (WRVU 2.09) 11/17/2024 4:20 PM EDT Office Visit Gastroenterology at [facility] [place] [address] [place] Gar MD [facility] DR [place] [address] Scheduled Procedures Name Priority Associated Diagnoses Date/Ti me EGD, UPPER GI ENDOSCOPY (WRVU 2.09) Sharma's esophagus with dysplasia 01/02/2024 7:30 AM EDT documented as of this encounter Procedures Procedure Name Priority Date/Time Associated Diagnosis Comments SURGICAL PATHOLOGY REPORT Routine 08/05/2003 3:31 PM EST documented in this encounter Results * Surgical Pathology Report (08/05/2003 3:31 PM EST) Surgical Pathology Report [id number] ? Location: [facility]; [facility]; A The signing pathologist has (i) examined the relevant preparation(s) for the specimen(s) and (ii) rendered or confirmed the diagnosis(es). . ?Pathology Surgical Pathology Final Report Clinical Information Specimen Submitted: A - Pelvic abscess wall; ? cancer. for Frozen Section B - Small bowel C - Resected Sigmoid Clinical History: Pelvic Abcess Frozen Section Diagnosis A - Inflamed and reactive fibrous tissue (LORETTA) Gross Description A - Labeled/Fixative: Pelvic abscess wall ? cancer, fresh. Qty/Size/Weight: ?Two, 2 x 0.5 x 0.3 cm. Tissue Description: ?? Fragments of hemorrhagic, mario-red tissue. Sections/Processing : ??Entirely submitted for frozen section. ??Frozen ?section residue in (1). ??(T1) ??aje/TLW B - Labeled/Fixative: Small bowel, formalin. Qty/Size/Weight: ?Single, 20 x 4.5 cm. Tissue Description: ?? Unoriented segment of small intestine with ?mario-red, hemorrhagic serosa and a central ?5 x 4-cm, shaggy, indurated area. The mucosa is ?mario-pink with moderate to marked edema. ??These ?folds are slightly attenuated. ??No perforation ?is identified grossly. Sections/Processing : ??(1-2) hardware supplies sales representative terminal margin; ?(3-4) mucosa to hemorrhagic serosa. ??(R4) C - Labeled/Fixative: Resected sigmoid, fresh. Qty/Size/Weight: ?Single, 21 x 4 cm. Tissue Description: ?? Unoriented segment of colon. The serosa is ?mario-red, hemorrhagic, with a central, 3 x 3-cm ?perforation. ??The mucosa is mario-pink and ?moderately edematous. ??The wall is thickened up ?to 1.3 cm. ??The adherent mesenteric fat is ?markedly indurated. ??There are a couple of ?uncomplicated diverticula identified around the ?area of perforation. Sections/Processing : ??(1-2) hardware supplies sales representative section of terminal ?margins; (3) perforation; (4) diverticula ?adjacent to perforation. (R4) ??aje/SNS Microscopic Description Slides reviewed, microscopic description not recorded. Diagnosis A - Soft tissue (pelvic abscess), biopsy: ?Fibroadipose tissue with acute and chronic inflammation and fat ?necrosis. B - Small bowel, partial resection: . Diagnosis ?Segment of small bowel with acute serositis, hemorrhage, reactive ?fibrosis, organizing fibrin, and submucosal edema. ?Terminal resection margins are histologically viable. C - Colon (sigmoid), resection: ?Segment of colon with diverticulitis and peridiverticular abscess ?formation. ?Terminal resection margins are histologically viable. CR-0 08/10/03 [facility] 08/10/03 Verified by: ? Bertin Matta MD, PhD ?Pathologist ?(Electronic Signature) The attending pathologist whose signature appears on this report has reviewed all diagnostic slides and has edited the gross and/or microscopic portion of the report in rendering the final pathologic diagnosis. [facility] 08/05/2003 3:31 PM EST Balbir Conroy MD PATHOLOGY/CYTOLOGY ORDERABLES [facility] documented in this encounter Visit Diagnoses Not on filedocumented in this encounter Care Teams Time Cycle Operator Relationship Specialty Start Date End Date Slade Tran MD [address] [place] [address] PCP - General Family Medicine 06/19/22 11/05/23 documented as of this encounter
--- OUTSIDE RECORDS SUMMARY | 2023-12-10 05:01 | XMS_ITS | Encounter Summary ---
Author Organization [facility] [place] [address] Care Team Providers Care Security Incident Response Engineer Name Role Phone Slade Tran MD Primary Care Provider [phone] Encounter Details Date Type Department Care Team (Late st Contact Info) Description 05/03/2004 Orders Only [place] [address] Balbir Conroy MD [facility] [place] [address] Social History Tobacco Use Types Packs/Day Years Used Date Smoking Tobacco: Never Assessed Sex and Gender Information Value Date Recorded Sex Assigned at Not on file Gender Identity Not on file Sexual Orientation Not on file documented as of this encounter Plan of Treatment Upcoming Encounters Date Type Department Care Team (Latest Contact Info) Description 01/02/2024 7:30 AM EDT Hospital Encounter [place] [address] [place] Gar MD [facility] [place] [address] 01/02/2024 7:30 AM EDT - 01/02/2024 8:30 AM EDT Surgery [place] [address] [place] Gar MD [facility] [place] [address] EGD, UPPER GI ENDOSCOPY (WRVU 2.09) 11/17/2024 4:20 PM EDT Office Visit Gastroenterology at [facility] [place] [address] [place] Gar MD [facility] [place] [address] Scheduled Procedures Name Priority Associated Diagnoses Date/Ti me EGD, UPPER GI ENDOSCOPY (WRVU 2.09) Sharma's esophagus with dysplasia 01/02/2024 7:30 AM EDT documented as of this encounter Procedures Procedure Name Priority Date/Time Associated Diagnosis Comments SURGICAL PATHOLOGY REPORT Routine 05/03/2004 8:08 PM EST documented in this encounter Results * Surgical Pathology Report (05/03/2004 8:08 PM EST) Surgical Pathology Report [id number] ? Location: [facility]; [facility]; A The signing pathologist has (i) examined the relevant preparation(s) for the specimen(s) and (ii) rendered or confirmed the diagnosis(es). . ?Pathology Surgical Pathology Final Report Clinical Information Specimen Submitted: A - Stoma, abdomen B - Distal donut, colon C - Proximal donut, colon Clinical History: Sigmoid colostomy Gross Description A - Labeled/Fixative : Abdomen, stoma; fresh. Qty/Size/Weight: ?7 x 6.5 x 2.5 cm. Tissue Description: ?? Portion of adipose tissue with a centrally located, ?2.2 x 2 x 0.5-cm stoma showing skin ?transitioning to enteric mucosa. Sections/Process ing: ??(R1) B - Labeled/Fixative : Colon distal donut, fresh. Qty/Size/Weight: ?1.5 x 1 x 0.7 cm. Tissue Description: ?? Donut of enteric tissue with a lumen diameter of ?0.6 cm. Bisected. Sections/Process ing: ??(T1) C - Labeled/Fixative : Proximal colon donut, fresh. Qty/Size/Weight: ?Multiple, 2.2 x 2.1 x 0.6 cm. Tissue Description: ?? Velez tissue fragments containing multiple sutures and ?eliana. ??An attempt is made to remove eliana and ?suture material. Sections/Process ing: ??(R1) ??aje/LJT Microscopic Description Slides reviewed, microscopic description not recorded. Diagnosis A. ??Stoma, abdomen, excision ?Colostomy stoma with mild chronic inflammation and fibrosis. B. ??Colon, distal donut, excision ?Colonic mucosa with hemorrhage and ischemic changes. C. ??Colon, proximal donut, excision ?Unremarkable colonic ring. CR-0 05/10/04 [facility] 05/10/04 Verified by: ? Deana Lopez MD ?Pathologist ?(Electronic Signature) The attending pathologist whose signature appears on this report has reviewed all diagnostic slides and has edited the gross and/or microscopic portion of the report in rendering the final pathologic diagnosis. [facility] 05/03/2004 8:08 PM EST Balbir Conroy MD PATHOLOGY/CYTOLOGY ORDERABLES [facility] documented in this encounter Visit Diagnoses Not on filedocumented in this encounter Care Teams Security Incident Response Engineer Relationship Specialty Start Date End Date Slade Tran MD [address] [place] [address] PCP - General Family Medicine 06/19/22 11/05/23 documented as of this encounter
[2023-12-10 15:41] LABS: Anion Gap 13.7 mmol/L (3-11); BUN 61 mg/dL (7-18); CO2 19.3 mmol/L (21.0-32.0); Calcium 8.6 mg/dL (8.5-10.1); Chloride 109 mmol/L (98-107); Estimated GFR 13.77 (mL/min/1.73m2); Glucose 95 mg/dL (74-106); Potassium 5.1 mmol/L (3.5-5.1); Sodium 142 mmol/L (136-145)
[2023-12-10 15:51] LABS: CREATININE 4.4 mg/dL (0.70-1.30)
== END 2023-12-10 04:40 | disposition home or self-care (01) ==
LOC: LBO 04:39
PROVIDERS: PCP Student in an Organized Health Care Education/Training Program; Visit Provider Internal Medicine Nephrology
DX: N18.4 Chronic kidney disease, stage 4 (severe) (principal); I10 Essential (primary) hypertension
CPT/HCPCS: 36415; 80048

== ENCOUNTER 2023-12-20 01:57 | Outpatient (CLI) | payer MEDICARE, SELFPAY ==
--- OUTSIDE RECORDS SUMMARY | 2023-12-20 02:20 | XMS_ITS | Encounter Summary ---
Author Organization [facility] Address [address] [place] [address] Care Team Providers Care Community Music Therapist Name Role Phone Jorge Chauhan MD Primary Care Provider Reason for Visit * Reason Onset Date Comments Follow-up Diagnostic PSG 10/27/2021 Encounter Details Date Type Department Care Team (Late st Contact Info) Description 10/27/2021 Telephone [facility] General Surgery - [address] [id number] Ollie Lee MD [address] [place] [address], [address] [place] [address] Follow-up Diagnostic PSG Social History [...] on filedocumented in this encounter Care Teams Community Music Therapist Relationship Specialty Start Date End Date Jorge Chauhan MD [address] [place] [address] PCP - General Family Medicine - Primary Care 10/18/21 11/22/21 documented as of this encounter
--- OUTSIDE RECORDS SUMMARY | 2023-12-20 02:20 | XMS_ITS | Encounter Summary ---
Author Organization [facility] Address [address] [place] [address] Care Team Providers Care Emergency Department Nurse Name Role Phone Slade Tran MD Primary Care Provider [phone] Encounter Details Date Type Department Care Team (Late st Contact Info) Description 09/23/2023 Lab Requisition [facility] Pathology & Laboratory Medicine - [facility] [address] [place], [place] [id number] Outr Resulting Lab, Provider Social History Tobacco [...] % 69.2 N/A % 09/24/19 24 15:06 [facility] Albumin, Urine mg/dL 191 mg/dL 09/24/2023 15:06 [facility] Globulins, Urine % 30.8 N/A % 09/24/2023 15:06 [facility] Globulins, Urine mg/dL 85 mg/dL 09/24/2023 15:06 [facility] UPEP Comment See Comment 09/24/2023 15:06 [facility] Comment:Electrophoresis scre ening performed; Immunotyping to follow. ??See scanned/supplementary report. Immunotyping, Urine Current Interpretatio n: Negative for free monoclonal light chains. Reviewed by: Ortega Prado MD 09/24/2023 1351 09/24/2023 15:06 [facility] Total Protein, Urine 276 See Note mg/dL 09/24/2023 15:06 [facility] Comment: NOTE: Reference range has not been established for total protein concentration in random urine specimens. Urine URINE / Unknown 09/23/2023 1 2:58 EDT 09/23/2023 21:05 EDT Provider Outr Resulting Lab URINALYSIS O RDERABLES Performing Organization Address [facility] Co de Phone Number [facility] [address] [place] [address] * PROTEIN, TOTAL, RANDOM, URINE (09/23/2023 12:58 EDT) Urine URINE / Unknown 09/23/2023 1 2:58 EDT 09/23/2023 21:05 EDT Provider Outr Resulting Lab URINALYSIS O RDERABLES Performing Organization Address City/[facility] Co de Phone Number [facility] [address] [place] [address] documented in this encounter Visit Diagnoses Not on filedocumented in this encounter Care Teams Emergency Department Nurse Relationship Specialty Start Date End Date Slade Tran [place] [address] PCP - General 11/12/22 documented as of this encounter
--- OUTSIDE RECORDS SUMMARY | 2023-12-20 02:20 | XMS_ITS | Encounter Summary ---
Author Organization [facility] Address [address] [place] [address] Care Team Providers Care Lobby Porter Name Role Phone Luis Lauren MD Primary Care Provider [phone] Slade Tran MD Primary Care Provider [phone] Encounter Details Date Type Department Care Team (Late st Contact Info) Description 05/02/2022 Lab Requisition [facility] Pathology & Laboratory Medicine - [facility] [address] [place], [place] [id number] Outr Resulting Lab, Provider Social History Tobacco [...] 19 - 88 pg/mL 05/02/2022 22:56 EST [facility] Blood VENOUS BLOOD / Unknown 05/02/2022 11:10 EST 05/02/2022 21:29 EST Provider Outr Resulting Lab CHEMISTRY & BLOOD GAS ORDERABLES Performing Organization Address City/State/[facility] Co de Phone Number [facility] [address] [place] [address] documented in this encounter Visit Diagnoses Not on filedocumented in this encounter Care Teams Lobby Porter Relationship Specialty Start Date End Date Luis Lauren MD [address] [place] [address] PCP - General Family Medicine - Primary Care 11/23/21 11/11/22 Slade Tran MD [facility] [place] [address] PCP - General 11/12/22 documented as of this encounter
--- OUTSIDE RECORDS SUMMARY | 2023-12-20 02:20 | XMS_ITS | Clinical Summary ---
Author Organization [facility] Address [address] [place] [address] Care Team Providers Care [employer]person [employer] Name Role Phone Slade Tran MD Primary Care Provider [phone] Allergies Active Allergy Reactions Criticality Noted Date [...] Department Care Team Description 09/23/2023 Lab Requisition [facility] Pathology & Laboratory [address] [address] Outr Resulting Lab, Provider 09/23/2023 Lab Requisition [facility] Pathology & Laboratory [address] [address] Outr Resulting Lab, Provider from Last 3 [...] sees iropractor about every 4 months Cancer ([facility]) skin cancer lef t ear, removed 2019 Eczema right ankle, has a cream from dermatology CKD (chronic kidney disease) Sta ge IV, followed by nephrology @ [facility], no restrictions per pt Wears hearing [...] Completed 10/20/2021 Medical Devices Implanted Type Area Slate Cutter Device Identifier Shelf Expiration Date Model / Serial / Lot Mesh Hernia 4 X 8cm [employer] Core Permanent - [id number] Implanted:Qty: 1 on 10/25/2021 by Ollie Lee MD at [facility] Mesh N/A: Esophagus [employer] 06/26/2023 [id number] / / [id number] Procedures Procedure [...] 69.2 N/A % 09/24/19 24 15:06 EDT [facility] Albumin, Urine mg/dL 191 mg/dL 09/24/2023 15:06 [facility] Globulins, Urine % 30.8 N/A % 09/24/2023 15:06 T [facility] Globulins, Urine mg/dL 85 mg/dL 09/24/2023 15:06 [facility] UPEP Comment See Comment 09/24/2023 15:06 [facility] Comment:Electrophoresis scre ening performed; Immunotyping to follow. ??See scanned/supplementary report. Immunotyping, Urine Current Interpretatio n: Negative for free monoclonal light chains. Reviewed by: Ortega Prado MD 09/24/2023 1351 09/24/2023 15:06 T [facility] Total Protein, Urine 276 See Note mg/dL 09/24/2023 15:06 [facility] Comment: NOTE: Reference range has not been established for total protein concentration in random urine specimens. Urine URINE / Unknown 09/23/2023 1 2:58 EDT 09/23/2023 21:05 EDT Provider Outr Resulting Lab URINALYSIS O RDERABLES [facility] [address] [place] [address] * (ABNORMAL) SPEP, INCLUDES QUANTITATION OF MONOCLONAL SPIKE PERFORMABLE (09/23/2023 12:58 EDT) Albumin % 61.9 55.8 - 66.1 % 09/24/2023 13:49 [facility] Albumin g/dL 4.1 3.6 - 5.2 g/dL 09/24/2023 13:49 [facility] Alpha-1 % 4.5 2.9 - 4.9 % 09/24/2023 13:49 [facility] Alpha-1 g/dL 0.30 0.15 - 0.40 g/dL 09/24/2023 13:49 [facility] Alpha-2 % 12.3(H) 7.1 - 11.8 % 09/24/2023 13:49 [facility] Alpha-2 g/dL 0.80 0.50 - 1.00 g/dL 09/24/2023 13:49 [facility] Beta % 10.3 8.4 - 13.1 % 09/24/2023 13:49 [facility] Beta g/dL 0.70 0.60 - 1.20 g/dL 09/24/2023 13:49 [facility] Gamma % 11.0(L) 11.1 - 18.8 % 09/24/2023 13:49 [facility] Gamma g/dL 0.70 0.60 - 1.60 g/dL 09/24/2023 13:49 [facility] SPEP Comment No apparent monoclonal protein seen on serum electrophoresis 09/24/2023 13:49 [facility] Comment:See scanned/suppleme ntary report. Total Protein 6.6 6.3 - 8.2 g/dL 09/24/2023 13:49 [facility] Blood VENOUS BLOOD / Unknown 09/23/2023 12:58 EDT 09/23/2023 21:05 EDT Provider Outr Resulting Lab CHEMISTRY & BLOOD GAS ORDERABLES [facility] [address], [place] [id number] * PROTEIN, TOTAL, RANDOM, URINE (09/23/2023 12:58 EDT) Urine URINE / Unknown 09/23/2023 1 2:58 EDT 09/23/2023 21:05 EDT Provider Outr Resulting Lab URINALYSIS O RDERABLES Performing Organization Address City/[facility]/ZIP Co de Phone Number [facility] [address] [place] [address] * IMMUNOGLOBULINS (09/23/2023 12:58 EDT) IgG 671 610 - 1,616 mg/dL 09/24/2023 8:29 EDT [facility] IgA 144 85 - 499 mg/dL 09/24/2023 8:29 EDT [facility] IgM 120 35 - 242 mg/dL 09/24/2023 8:29 EDT [facility] Blood VENOUS BLOOD / Unknown 09/23/2023 12:58 EDT 09/23/2023 21:05 EDT Provider Outr Resulting Lab CHEMISTRY & BLOOD GAS ORDERABLES Performing Organization Address [facility] Co de Phone Number [facility] [address] [place] [phone] * PROTEIN, TOTAL (09/23/2023 12:58 EDT) Blood VENOUS BLOOD / Unknown 09/23/2023 12:58 EDT 09/23/2023 21:05 EDT Provider Outr Resulting Lab CHEMISTRY & BLOOD GAS ORDERABLES Performing Organization Address City/[facility]/ZIP Co de Phone Number [facility] [address], [place] [phone] * HEPATITIS C AB W REFLEX TO HCV RNA BY PCR (10/20/2021 16:02 EDT) Hep C Antibody Negative Negative 10/23/2021 10:57 EDT [facility] Blood VENOUS BLOOD / Unknown 10/20/2021 16:02 EDT 10/21/2021 22:12 EDT Provider Outr Resulting Lab CHEMISTRY & BLOOD GAS ORDERABLES [facility] [address] [place] [address] from Last 3 Months or Most Recently Relevant to Health Maintenance Advance Directives For more information, please contact: [phone] Documents on File Type Date Recorded 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 Default/Not Discussed Care Teams [employer]person [employer] Relationship Specialty Start Date End Date Slade Tran MD [facility] [place] [address] PCP - General 11/12/22
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
--- OUTSIDE RECORDS SUMMARY | 2023-12-20 02:20 | XMS_ITS | Encounter Summary ---
Author Organization [facility] Address [address] [place] [address] Care Team Providers Care Intellectual Property Counsel Name Role Phone Luis Lauren MD Primary Care Provider [phone] Reason for Visit * Reason Comments Follow-up Incisional hernia Encounter Details Date Type Department Care Team (Late st Contact Info) Description 08/02/2022 16:40 EST Office Visit [facility] General Surgery - [address] [id number] Ollie Lee MD [address] [place] [address], [address] [place] [address] Incisional hernia, without obstruction or [...] disease) Stage IV, followed by nephrology @ [facility], no restrictions per pt ??? Diverticulitis [...] Some of this note was transcribed with [employer] dictating software. While it was proofread, it [...] mouth. added in this encounter Care Teams Intellectual Property Counsel Relationship Specialty Start Date End Date Luis Lauren MD [address] [place] [address] PCP - General Family Medicine - Primary Care 11/23/21 11/11/22 documented as of this encounter
--- OUTSIDE RECORDS SUMMARY | 2023-12-20 02:20 | XMS_ITS | Encounter Summary ---
Author Organization [facility] Address [address] [place] [address] Care Team Providers Care Senior Sales Consultant Name Role Phone Luis Lauren MD Primary Care Provider [phone] Reason for Referral * Medication Prior Authorization - Closed Specialty Diagnoses / Procedures Referred By Devaughn bobo Referred To Contact Ollie Lee MD [address] [place] [address] Referral ID Status Reason Start Date Expiration Date Visits Re quested Visits Authorized [id number] Closed 1 1 Reason for Visit * Reason Onset Date Comments Medications Refill 11/23/2021 Encounter Details Date Type Department Care Team (Late st Contact Info) Description 11/23/2021 Telephone [facility] General Surgery - [address] [phone] Ollie Lee MD [address] [place] [address] Medications Refill Social History Tobacco Use [...] Traci Barfield - 11/23/2021 1555 EDT ondamestral- [facility] documented in this encounter Plan of [...] documented as of this encounter Care Teams Senior Sales Consultant Relationship Specialty Start Date End Date Luis Lauren MD [address] [place] [address] [place] [address] PCP - General Family Medicine - Primary Care 11/23/21 11/11/22 documented as of this encounter
--- OUTSIDE RECORDS SUMMARY | 2023-12-20 02:20 | XMS_ITS | Encounter Summary ---
Author Organization [facility] Address [address] [place] [address] Care Team Providers Care First Leveler Name Role Phone Slade Tran MD Primary Care Provider [phone] Encounter Details Date Type Department Care Team (Late st Contact Info) Description 04/02/2023 Lab Requisition [facility] Pathology & Laboratory Medicine - [facility] [address] [place], [place] [phone] Outr Resulting Lab, Provider Social History Tobacco [...] 19 - 88 pg/mL 04/02/2023 19:37 EST [facility] Blood VENOUS BLOOD / Unknown 04/02/2023 9:10 EST 04/02/2023 17:52 EST Provider Outr Resulting Lab CHEMISTRY & BLOOD GAS ORDERABLES Performing Organization Address City/State/[facility] Co de Phone Number [facility] [address] [place] [address] documented in this encounter Visit Diagnoses Not on filedocumented in this encounter Care Teams First Leveler Relationship Specialty Start Date End Date Slade Tran MD [address] [place] [address] PCP - General 11/12/22 documented as of this encounter
--- OUTSIDE RECORDS SUMMARY | 2023-12-20 02:20 | XMS_ITS | Encounter Summary ---
Author Organization [facility] Address [address] [place] [address] Care Team Providers Care Rail Transportation Tabeler Name Role Phone Slade Trna MD Primary Care Provider [phone] Reason for Visit * Radiology Services (Routine/Next Available) - Authorization Not Required Specialty Diagnoses / Procedures Referred By Contac t Referred To Contact Diagnoses Paraesophageal hernia Procedures FL UGI AIR W BENCH PATTERNMAKER METAL FL UGI AIR WO BENCH PATTERNMAKER METAL Ollie Lee MD [address] [place] [address] [address] [place] [address] [facility] Referral ID Status Reason Start Date Expiration Date Visits Requested Visits Authorized [id number] Authorization Not Required 11/23/2021 1 1 Encounter Details Date Type Department Care Team (Latest Contact Info) Description 11/12/2022 10:01 EDT - 11/12/2022 23:59 EDT [facility] Fluoroscopy - [address] [phone] Paraesophageal hernia Discharge Disposition: Home or Self [...] Associated Diagnosis Comments FL UGI AIR W BENCH PATTERNMAKER METAL Routine 11/12/2022 10 :45 EDT Paraesophageal hernia documented in this encounter Results * FL UGI AIR W BENCH PATTERNMAKER METAL (11/12/2022 10:45 EDT) Anatomical Region Laterality Modality [...] 11/12/2022 12:01 EDT FL UGI AIR W BENCH PATTERNMAKER METAL ??11/12/2022 10:30 AM Signs and Symptoms/Comments: ?? 1 year routine post-op check, r/o recurrent hiatal hernia Comparison: Fluoroscopic UGI 08/01/2021. Technique: Single and double contrast views of the thoracic esophagus, stomach, duodenal bulb, and sweep were obtained. Findings: Drum Saw Operator film demonstrates surgical clips projecting over the [...] MD - 11/12/2022 FL UGI AIR W BENCH PATTERNMAKER METAL 11/12/2022 10:30 AM Signs and Symptoms/Comments: 1 year routine post-op check, r/o recurrent hiatal hernia Comparison: Fluoroscopic UGI 08/01/2021. Technique: Single and double contrast views of the thoracic esophagus, stomach,duodenal bulb, and sweep were obtained. Findings: Drum Saw Operator film demonstrates surgical clips projecting over the [...] gangrene documented in this encounter Care Teams Rail Transportation Tabeler Relationship Specialty Start Date End Date Slade Tran MD [facility] [place] [address] PCP - General 11/12/22 documented as of this encounter
--- OUTSIDE RECORDS SUMMARY | 2023-12-20 02:20 | XMS_ITS | Data Portability ---
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 report completed [facility] [address] [place], [address] 10/01/2023 19:05:45 10/16/2023 x-ray imaging report completed [address] [place], [address] 10/16/2023 18:53:32 11/13/2023 x-ray imaging report completed [address] [place], [address] 11/13/2023 18:45:03 11/26/2023 x-ray imaging report completed [address] [place], [address] 12/02/2023 14:34:38 11/26/2023 x-ray imaging report completed [address] [place], [address] 12/02/2023 14:34:39 Procedure Notes None recorded. Medical Equipment None Reported. Allergies Allergen ID Allergen Name Allergen Category Reaction Reaction Severity Criticality Documentation Date Start Date Code Code System Note Provider Name and Address Organization Details Recorded Time 60616 morphine medicatio n hives mild low 10/01/2023 7052 RxNorm Dang Ramirez RN [facility], [facility] 15:20:46 Medications Name Sig Start [...] 11/15 completed prescrib ed by Diana at [facility] [place] Not Available Not Available Not Available omeprazol [...] Updated DateTime 4 167.64 cm 26.3 kg/m2 02667.5 6 g 98.1 [degF] 100 % 100 % 16 /min 80 /min 130 mm[Hg] 72 mm[Hg] ALAN EGAN RN [facility] 4 15:04:41 Date Recorded Body height Body mass index (BMI) Body weight Respiratory rate Oxygen saturation Oxygen saturation in Arterial blood by Pulse oximetry Heart rate Body temperature Systolic blood pressure Diastolic blood pressure Provider Name and Address Organization Details Last Updated DateTime 4 167.64 cm 26.3 kg/m2 07566.5 6 g 18 /min 96 % 96 % 70 /min 97.8 [degF] 123 mm[Hg] 73 mm[Hg] Dang Ramirez RN [facility] 4 15:19:59 Date Recorded Body height Oxygen saturation Oxygen saturation in Arterial blood by Pulse oximetry Heart rate Body temperature Respiratory rate Systolic blood pressure Diastolic blood pressure Provider Name and Address Organization Details Last Updated DateTime 4 167.64 cm 97 % 97 % 79 /min 96.3 [degF] 17 /min 122 mm[Hg] 77 mm[Hg] BERNIE RAY MA [facility] 4 14:57:16 Date Recorded Body height Body mass index (BMI) Body weight Body temperature Heart rate Systolic blood pressure Diastolic blood pressure Provider Name and Address Organization Details Last Updated DateTime 4 167.64 cm 25.6 kg/m2 87995.7 5 g 98.1 [degF] 60 /min 128 mm[Hg] 76 mm[Hg] Tram Washington RN [facility] 08:45:11 Social History Question Answer Notes LastModified by Organizat ion Details LastModified Time Tobacco Smoking Status Never Smoker Dang Ramirez RN [facility], [facility] 10/01/2023 15:21:56 What Was The [...] free, adsorbed 10/01/[address], [place], [address], [facility] 10/02/2023 09:02:23 Tdap 08/20/2016 completed [facility] Available [facility] 06:27:41 zoster live 06/24/2018 completed Not Available [facility] 04/05/2023 06:27:41 zoster live 04/15/2018 completed Not Available [facility] 04/05/2023 06:27:41 Td(adult) unspecified formulation 05/31/2006 completed Not Available [facility] 04/05/2023 06:27:41 Influenza, high-dose, quadrivalent, PF 04/03/2022 completed Not Available [facility] 04/05/2023 06:27:41 SARS-COV-2 (COVID-19) vaccine, UNSPECIFIED 07/25/2020 completed Not Available [facility] 04/05/2023 06:27:41 SARS-COV-2 (COVID-19) vaccine, UNSPECIFIED 08/16/2020 completed Not Available [facility] 04/05/2023 06:27:41 SARS-COV-2 (COVID-19) vaccine, UNSPECIFIED 10/09/2021 completed Not Available [facility] 04/05/2023 06:27:41 SARS-COV-2 (COVID-19) vaccine, UNSPECIFIED 03/13/2021 completed Not Available [facility] 04/05/2023 06:27:42 Pneumococcal conjugate PCV20, polysaccharide [id number] conjugate, adjuvant, PF 08/21/2022 completed Not Available [facility] 04/05/2023 06:27:42 COVID-19, mRNA, LNP-S, bivalent, PF, 30 mcg/0.3 mL dose 04/03/2022 completed Not Available [facility] 04/05/20 06:27:42 influenza, unspecified formulation 05/02/2021 completed Not Available [facility] 04/05/2023 06:27:42 SARS-COV-2 (COVID-19) vaccine, UNSPECIFIED 03/15/2023 completed ALAN EGAN RN null, [facility] 04/29/2023 07:55:11 influenza, unspecified formulation 03/15/2023 completed ALAN EGAN RN null, [facility] 04/29/2023 07:55:24 Influenza, high-dose, quadrivalent, PF 03/15/2023 completed Not Available [facility] 06/07/2023 05:31:31 COVID-19, mRNA, LNP-S, PF, nitin-sucrose, 30 mcg/0.3 mL 03/15/2023 completed Not Available [facility] 06/07/2023 05:31:31 Past Encounters Encounter ID Performer Location Encounter Start Date Encounter Closed Date Diagnosis/Indication Diagnosis SNOMED-CT Code [id number] VALERIA TRAN MD [facility] [address] [place] [address] 04/29/2023 08:27:38 04/29/2023 09:31:46 Adult health examination 515574760 Active or passive immunization 370090937 Pain in ri ght lower limb 516617515 Anemia in chronic kidney disease 441898911 Chronic ki dney disease stage 4 863205440 Hand wart 145186827 Actinic keratosis 977175 432 [id number] VALERIA TRAN MD [facility] [address] [place] [address] 05/23/2023 16:35:10 05/23/2023 16:53:30 Anemia in chronic kidney disease 811486978 Sharma's esophagus 3029 97638 [id number] VALERIA TRAN MD [facility] [address] [place] [address] 08/15/2023 15:00:23 08/15/2023 15:52:30 Hyperparathyroidism due to renal insufficiency 62007937 Chronic ki dney disease stage 4 742452183 Food poisoning 87218074 [id number] Erika Mejia PA-C [address] [place] [address] 10/01/2023 15:07:20 10/01/2023 16:10:16 Fracture of middle phalanx of finger 008001970 [id number] JANN GÓMEZ PA-C [address] [place] [address] 10/02/2023 14:43:45 10/02/2023 16:37:47 Fracture of middle phalanx of finger 164624805 [id number] ARM[address]O ACUNA [facility] [address] [place] [address] 10/25/2023 07:51:34 10/25/2023 08:43:53 Chronic kidney disease stage 4 852987295 Anemia in chronic kidney disease 133188074 Secondary hyperparathyroidism 93971009 Essential hypertension 24511525 Chronic al coholism in remission 753258816 Health Concerns Section Related Observation LastModified by Organization Detai ls LastModified Time None Recorded Concern Status LastModified by Organization Details LastModified Time None Recorded Advance Directives Directive None Recorded Payers Encounter Date Sequence Insurance Name Policy Number Policy Banerjee Covered Member ID Banerjee Member ID Guarantor Name 05/23/2023 1 [place]ANT[place] - PPO) [id number] Mathew Haqueue [id number] Mathew Abel Gingue 08/15/2023 1 [place] - [place]) Mathew Flores Gingue [id number] Mathew Flores Gingue 10/01/2023 1 [place]) [id number] Mathew Abel Gingue [id number] Mathew Abel Gingue 10/02/2023 1 [place] - [place]) Mathew Abel Gingue [id number] Mathew Abel Gingue 10/25/2023 1 [place] - [place]) [id number] Mathew Haqueue [id number] Mathew Mendez Notes Date Note Type [...] after his stomach operation, not a/w iron. VALERIA TRAN MD [address], [place], [address], [facility]. 05/23/2023 16:54:54 4 text/html HPI Notes: Was in [place] 1-2 weeks ago, had sudden onset of [...] change in urination. running out of calcitriol VALERIA TRAN MD [address], [place], [address], [facility]. 08/15/2023 21:02:57 4 text/html HPI Notes: [...] tetanus. Erika Mejia PA-C [address], [place], [address], [facility]. 10/02/2023 09:20:35 4 text/html HPI Notes: [...] his antibiotics as prescribed. [address], [place], [address], [facility]. 10/02/2023 18:54:45 4 text/html HPI Notes: [...] per Nephrology (Dr. Huynh) note review from [facility] 09/29/2023. Last Creatinine 3.21 09/29/2023 at [facility]. Standing order at [facility] for BMP per [facility] Nephrology. They are considering kidney biopsy per [...] is likely per Nephrology note review from [facility] 09/29/2023. Last Creatinine 3.21 09/29/2023 at [facility]. Standing order at [facility] for BMP per [facility] Nephrology. They are considering kidney biopsy per [...] 05/23/2023 note review. 11/10/2023 for Upper UE, [place] and r/u visit 11/19/2023. [address], [place], [address], [facility]. 10/25/2023 09:03:32
--- OUTSIDE RECORDS SUMMARY | 2023-12-20 02:20 | XMS_ITS | Encounter Summary ---
Author Organization [facility] Address [address] [place] [address] Care Team Providers Care Facilities Manager Name Role Phone Luis Lauren MD Primary Care Provider [phone] Reason for Visit * Reason Comments Post-OP Follow Up [facility] Encounter Details Date Type Department Care Team (Late st Contact Info) Description 11/23/2021 10:45 EDT Post-op Visit [facility] General Surgery - [address] [id number] Ollie Lee MD [address] [place] [address], [address] [place] [address] Paraesophageal hernia (Primary Dx) Social [...] Etienne MA - 11/23/2021 1045 EDT [facility] General Surgery Services Patient Name: Mathew Mendez Date: 11/23/2021 GERD-HRQL SCALE Patient symptoms [...] gangrene documented in this encounter Care Teams Facilities Manager Relationship Specialty Start Date End Date Luis Lauren MD [address] [place] [address] PCP - General Family Medicine - Primary Care 11/23/21 11/11/22 documented as of this encounter
--- OUTSIDE RECORDS SUMMARY | 2023-12-20 02:20 | XMS_ITS | Encounter Summary ---
Author Organization [facility] Address [address] [place] [address] Care Team Providers Care Cattle Producers Name Role Phone Jorge Chauhan MD Primary Care Provider Reason for Visit * Reason Onset Date Comments Other 10/26/2021 Encounter Details Date Type Department Care Team (Late st Contact Info) Description 10/26/2021 Telephone [facility] General Surgery - [address] [phone] Ollie Lee MD [address] [facility], [address] [place] [address] Other Social History Tobacco Use [...] on filedocumented in this encounter Care Teams Cattle Producers Relationship Specialty Start Date End Date Jorge Chauhan MD [address] [place] [address] PCP - General Family Medicine - Primary Care 10/18/21 11/22/21 documented as of this encounter
--- OUTSIDE RECORDS SUMMARY | 2023-12-20 02:20 | XMS_ITS | Encounter Summary ---
Author Organization [facility] Address [address] [place] [address] Care Team Providers Care Housing Case Manager Name Role Phone Luis Lauren MD Primary Care Provider [phone] Reason for Visit * Reason Onset Date Comments Hernia 06/25/2022 Encounter Details Date Type Department Care Team (Late st Contact Info) Description 06/25/2022 Telephone [facility] General Surgery - [address] [phone] Ollie Lee MD [address] [facility], [address] [place] [address] Hernia Social History Tobacco Use [...] on filedocumented in this encounter Care Teams Housing Case Manager Relationship Specialty Start Date End Date Luis Lauren MD [address] [place] [address] PCP - General Family Medicine - Primary Care 11/23/21 11/11/22 documented as of this encounter
--- OUTSIDE RECORDS SUMMARY | 2023-12-20 02:20 | XMS_ITS | Encounter Summary ---
Author Organization [facility] Address [address] [place] [address] Care Team Providers Care Die Repair Name Role Phone Luis Lauren MD Primary Care Provider [phone] Reason for Visit * Reason Onset Date Comments Coordination Of Care 04/13/2022 Encounter Details Date Type Department Care Team (Late st Contact Info) Description 04/13/2022 Telephone [facility] General Surgery - [facility] [address] [place], [place] [phone] Alanna Dejesus, RN Coordination Of Care Social [...] on filedocumented in this encounter Care Teams Die Repair Relationship Specialty Start Date End Date Luis Lauren MD [address] [facility] [place] [address] PCP - General Family Medicine - Primary Care 11/23/21 11/11/22 documented as of this encounter
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
--- OUTSIDE RECORDS SUMMARY | 2023-12-20 02:20 | XMS_ITS | Encounter Summary ---
Author Organization [facility] Address [address] [place] [address] Care Team Providers Care Aircraft Maintenance Engineer Name Role Phone Slade Tran MD Primary Care Provider [phone] Reason for Visit * Reason Comments Follow-up Ugi same day Encounter Details Date Type Department Care Team (Late st Contact Info) Description 11/12/2022 11:40 EDT Office Visit [facility] General Surgery - [address] [id number] Ollie Lee MD [address] [place] [address], [address] [place] [address] Paraesophageal hiatal hernia (Primary Dx) [...] Shabazz MA - 11/12/2022 1140 EDT [facility] General Surgery Services Patient Name: [...] that was done for a gastropexy in [place] just before being transferred to our institution [...] Some of this note was transcribed with Jascha dictating software. While it was proofread, it may still contain unnoticed grammatical or word errors due to incorrect transcribing. CC: Primary Care Provider: Slade Tran MD documented in this encounter Plan of Treatment Not on file documented as of this encounter Visit Diagnoses Diagnosis Paraesophageal hiatal hernia- Primary Diaphragmatic hernia without mention of obstruction or gangrene documented in this encounter Care Teams Aircraft Maintenance Engineer Relationship Specialty Start Date End Date Slade Tran MD [address] [place] [address] PCP - General 11/12/22 documented as of this encounter
--- OUTSIDE RECORDS SUMMARY | 2023-12-20 02:20 | XMS_ITS | Encounter Summary ---
Author Organization [facility] Address [address] [place] [address] Care Team Providers Care Nanotechnology Engineering Technologist Name Role Phone Jorge Chauhan MD Primary Care Provider Reason for Visit * Auth/Cert Specialty Diagnoses / Procedures Referred By Contac t Referred To Contact Diagnoses Paraesophageal hernia Procedures AR LAP, REPAIR PARAESOPHAGEAL HERNIA, INCL FUNDOPLASTY W/ MESH Laparoscopic paraesophageal hernia repair with mesh Referral ID Status Reason Start Date Expiration Date Visits Re quested Visits Authorized [id number] 10/05/2021 05/26/2022 1 1 Encounter Details Date Type Department Care Team (Late st Contact Info) Description 10/25/2021 5:47 EDT - 10/26/2021 13:43 EDT Hospital Encounter [facility] Periop Surge Capacity [address] [place] [address] Ollie Lee MD [address] [facility], [facility] [address] [place] [address] Discharge Disposition: Home or Self [...] Code Departure Means Destination Home or Self Fdc documented in this encounter Progress Notes * [...] Slaughter MD 10/25/2021 11:51 General Surgery Housestaff #[id number] documented in this encounter H&P Notes * Jesus Herndon MD - 10/25/2021 0614 EDT Day of Surgery H+P Chief Complaint: Paraesophageal hernia HPI: Per Dr. Lee clinic note: This is a 66 y.o. male follows up with me today after being discharged from the hospital for his paraesophageal hernia. Just to summarize, he presented to the hospital in [place] with a paraesophageal hernia that was symptomatic for him. The [facility]'s tendons surgeon that was covering [...] disease) Stage IV, followed by nephrology @ [facility], no restrictions per pt ??? Diverticulitis [...] Consented Jesus Herndon MD 10/25/2021 6:14 Surgery Chairman & Co Founder Pager #[phone] documented in this encounter Nursing Notes * Mary Banks RN - 10/25/2021 0626 EDT Preop Covid DOS screening questionnaire Please [...] Surgeon - Ollie Lee MD - 10/25/2021 3216 EDT OPERATIVE REPORT SERVICE DATE: 10/25/2021 PREOPERATIVE DIAGNOSIS: Paraesophageal hernia. POSTOPERATIVE DIAGNOSIS: Paraesophageal hernia. PROCEDURES: 1. Laparoscopic paraesophageal hernia repair with mesh. 2. Laparoscopic Toupet fundoplication. SURGEON: Ollie Lee MD, FACS SMOOTH AND BURR WORKER COMPOSITES: Jesus Herndon MD ANESTHESIA: General endotracheal and [...] the esophagus, which was encircled with a Maitland drain for retraction. Mediastinal dissection of the [...] Ollie Lee MD FACS / CD Confirmation: [id number] Dictation ID: [id number] cc: Ollie Lee MD [facility], [facility] - Surgery, [address] [place] [address] Jorge Chauhan MD, [place] [address] Jesus Herndon MD, [facility] - House Staff Mail, [address] [place] [address] documented in this encounter Miscellaneous Notes * [...] EDT BRIEF OP NOTE Surgeon: Dr. Lee Wing Coverer: Dr. Herndon Pre-op diagnosis: Paraesophageal hernia Post-op [...] 4.00 - 10.40 K/cmm 10/26/2021 9:48 T [facility] RBC 3.20(L) 4.36 - 5.78 M/cmm 10/26/2021 9:48 [facility] Hemoglobin 9.9(L) 13.8 - 17.3 gm/dL 10/26/2021 9:48 [facility] HCT 29.8(L) 39.5 - 50.2 % 10/26/2021 9:48 [facility] MCV 93 81 - 95 fl 10/26/2021 9:48 [facility] MCH 30.9 27.6 - 33.0 pg 10/26/2021 9:48 [facility] MCHC 33.2 32.8 - 36.4 gm/dL 10/26/2021 9:48 T [facility] RDW-CV 15.5(H) <14.2 % 10/26/2021 9:48 T [facility] RDW-SD 52.9(H) <46.0 fl 10/26/2021 9:48 EDT [facility] PLT 153 141 - 377 K/cmm 10/26/2021 9:48 T [facility] MPV 11.8 9.5 - 12.7 fl 10/26/2021 9:48 [facility] Blood VENOUS BLOOD / Unknown Venipuncture / Unknown 10/26/2021 9:27 EDT 10/26/2021 9:42 EDT Jesus Herndon MD HEMATOLOGY & PF4 OR DERABLES Performing Organization Address City/State/[facility] Co de Phone Number [facility] [address] [place] [phone] * (ABNORMAL) COMPLETE BLOOD COUNT (10/25/2021 18:32 EDT) WBC 10.43(H) 4.00 - 10.40 K/cmm 10/25/2021 18:48 [facility] RBC 3.33(L) 4.36 - 5.78 M/cmm 10/25/2021 18:48 [facility] Hemoglobin 10.2(L) 13.8 - 17.3 gm/dL 10/25/2021 18:48 [facility] HCT 29.9(L) 39.5 - 50.2 % 10/25/2021 18:48 [facility] MCV 90 81 - 95 fl 10/25/2021 18:48 [facility] MCH 30.6 27.6 - 33.0 pg 10/25/2021 18:48 [facility] MCHC 34.1 32.8 - 36.4 gm/dL 10/25/2021 18:48 EDT [facility] RDW-CV 15.1(H) <14.2 % 10/25/2021 18:48 T [facility] RDW-SD 49.8(H) <46.0 fl 10/25/2021 18:48 T [facility] PLT 159 141 - 377 K/cmm 10/25/2021 18:48 T [facility] MPV 11.3 9.5 - 12.7 fl 10/25/2021 18:48 T [facility] Blood VENOUS BLOOD / Unknown Venipuncture / Unknown 10/25/2021 18:32 EDT 10/25/2021 18:36 EDT Jesus Herndon MD HEMATOLOGY & PF4 OR DERABLES Performing Organization Address City/State/[facility] Co de Phone Number [facility] [address] [place] [address] * (ABNORMAL) COMPLETE BLOOD COUNT AND DIFFERENTIAL (10/25/2021 12:22 EDT) WBC 12.50(H) 4.00 - 10.40 K/cmm 10/25/2021 12:34 [facility] RBC 3.19(L) 4.36 - 5.78 M/cmm 10/25/2021 12:34 [facility] Hemoglobin 9.9(L) 13.8 - 17.3 gm/dL 10/25/2021 12:34 [facility] HCT 29.4(L) 39.5 - 50.2 % 10/25/2021 12:34 [facility] MCV 92 81 - 95 fl 10/25/2021 12:34 [facility] MCH 31.0 27.6 - 33.0 pg 10/25/2021 12:34 [facility] MCHC 33.7 32.8 - 36.4 gm/dL 10/25/2021 12:34 [facility] RDW-CV 15.2(H) <14.2 % 10/25/2021 12:34 [facility] RDW-SD 51.7(H) <46.0 fl 10/25/2021 12:34 [facility] PLT 161 141 - 377 K/cmm 10/25/2021 12:34 [facility] MPV 11.1 9.5 - 12.7 fl 10/25/2021 12:34 [facility] % Neutrophils 87.5 % 10/25/2021 12:34 [facility] % Lymphocytes 3.7 % 10/25/2021 12:34 [facility] % Monocytes 6.6 % 10/25/2021 12:34 [facility] % Eosinophils 1.4 % 10/25/2021 12:34 [facility] % Basophils 0.3 % 10/25/2021 12:34 [facility] % Immature Grans 0.5 % 10/26/19 12:34 [facility] Absolute Neutrophils 10.95(H) 2.20 - 8.85 K/cmm 10/25/2021 12:34 [facility] Absolute Lymphocytes 0.46(L) 1.09 - 3.30 K/cmm 10/25/2021 12:34 [facility] Absolute Monocytes 0.82(H) 0.10 - 0.80 K/cmm 10/25/2021 12:34 [facility] Absolute Eosinophils 0.17 0.03 - 0.61 K/cmm 10/25/2021 12:34 [facility] ABS Basophils 0.04 0.01 - 0.11 K/cmm 10/25/2021 12:34 [facility] Absolute Immature Grans 0.06 0.00 - 0.06 K/cmm 10/25/2021 12:34 [facility] Type of Differential: Auto 10/25/2021 12:34 [facility] Blood VENOUS BLOOD / Unknown Venipuncture / Unknown 10/25/2021 12:22 EDT 10/25/2021 12:24 EDT Jesus Herndon MD PACKAGES & DNA PROB E ORDERABLES [facility] [address] [place] [address] documented in this encounter Visit Diagnoses Diagnosis [...] 10/26/2021 documented in this encounter Care Teams Nanotechnology Engineering Technologist Relationship Specialty Start Date End Date Jorge Chauhan MD [address] [place] [id number] PCP - General Family Medicine - Primary Care 10/18/21 11/22/21 documented as of this encounter
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
--- OUTSIDE RECORDS SUMMARY | 2023-12-20 02:20 | XMS_ITS | Encounter Summary ---
Author Organization [facility] Address [address] [place] [address] Care Team Providers Care Swinging Cut Off Saw Operator Name Role Phone Slade Tran MD Primary Care Provider [phone] Encounter Details Date Type Department Care Team (Late st Contact Info) Description 09/23/2023 Lab Requisition [facility] Pathology & Laboratory Medicine - [facility] [address] [place], [place] [address] Outr Resulting Lab, Provider Social History Tobacco [...] 61.9 55.8 - 66.1 % 09/24/2023 13:49 [facility] Albumin g/dL 4.1 3.6 - 5.2 g/dL 09/24/2023 13:49 [facility] Alpha-1 % 4.5 2.9 - 4.9 % 09/24/2023 13:49 [facility] Alpha-1 g/dL 0.30 0.15 - 0.40 g/dL 09/24/2023 13:49 [facility] Alpha-2 % 12.3(H) 7.1 - 11.8 % 09/24/2023 13:49 [facility] Alpha-2 g/dL 0.80 0.50 - 1.00 g/dL 09/24/2023 13:49 [facility] Beta % 10.3 8.4 - 13.1 % 09/24/2023 13:49 [facility] Beta g/dL 0.70 0.60 - 1.20 g/dL 09/24/2023 13:49 EDT [facility] Gamma % 11.0(L) 11.1 - 18.8 % 09/24/2023 13:49 EDT [facility] Gamma g/dL 0.70 0.60 - 1.60 g/dL 09/24/2023 13:49 T [facility] SPEP Comment No apparent monoclonal protein seen on serum electrophoresis 09/24/2023 13:49 EDT [facility] Comment:See scanned/suppleme ntary report. Total Protein 6.6 6.3 - 8.2 g/dL 09/24/2023 13:49 EDT [facility] Blood VENOUS BLOOD / Unknown 09/23/2023 12:58 EDT 09/23/2023 21:05 EDT Provider Outr Resulting Lab CHEMISTRY & BLOOD GAS ORDERABLES Performing Organization Address [facility] Co de Phone Number [facility] [address] [place] [address] * PROTEIN, TOTAL (09/23/2023 12:58 EDT) Blood VENOUS BLOOD / Unknown 09/23/2023 12:58 EDT 09/23/2023 21:05 EDT Provider Outr Resulting Lab CHEMISTRY & BLOOD GAS ORDERABLES Performing Organization Address [facility] Co de Phone Number [facility] [address] [place], [place] [address] * IMMUNOGLOBULINS (09/23/2023 12:58 EDT) IgG 671 610 - 1,616 mg/dL 09/24/2023 8:29 EDT [facility] IgA 144 85 - 499 mg/dL 09/24/2023 8:29 EDT [facility] IgM 120 35 - 242 mg/dL 09/24/2023 8:29 EDT [facility] Blood VENOUS BLOOD / Unknown 09/23/2023 12:58 EDT 09/23/2023 21:05 EDT Provider Outr Resulting Lab CHEMISTRY & BLOOD GAS ORDERABLES [facility] [address] [place], [place] [address] documented in this encounter Visit Diagnoses Not on filedocumented in this encounter Care Teams Swinging Cut Off Saw Operator Relationship Specialty Start Date End Date Slade Tran MD [address] [place] [address] PCP - General 11/12/22 documented as of this encounter
--- OUTSIDE RECORDS SUMMARY | 2023-12-20 02:20 | XMS_ITS | Referral Summary ---
Author Organization [facility] Address [address] [place] [address] Care Team Providers Care Spectral Scientist Name Role Phone Slade Tran MD Primary Care Provider [phone] Encounters Date Type Department Care Team Description 09/23/2023 Lab Requisition [facility] [address] [address] Outr Resulting Lab, Provider 09/23/2023 Lab Requisition [facility] [address] [address] Outr Resulting Lab, Provider from Last 3 [...] on file Medical Devices Implanted Type Area Certified Medical Biller Device Identifier Shelf Expiration Date Model / Serial / Lot Mesh Hernia 4 X 8cm [employer] Core Permanent - [id number] Implanted:Qty: 1 on 10/25/2021 by Ollie Lee MD at [facility] Mesh N/A: Esophagus [employer] 06/26/2023 [id number] / / [id number] Procedures Procedure [...] % 69.2 N/A % 09/24/19 24 15:06 [facility] Albumin, Urine mg/dL 191 mg/dL 09/24/2023 15:06 [facility] Globulins, Urine % 30.8 N/A % 09/24/2023 15:06 [facility] Globulins, Urine mg/dL 85 mg/dL 09/24/2023 15:06 [facility] UPEP Comment See Comment 09/24/2023 15:06 [facility] Comment:Electrophoresis scre ening performed; Immunotyping to follow. ??See scanned/supplementary report. Immunotyping, Urine Current Interpretatio n: Negative for free monoclonal light chains. Reviewed by: Ortega Prado MD 09/24/2023 1351 09/24/2023 15:06 [facility] Total Protein, Urine 276 See Note mg/dL 09/24/2023 15:06 [facility] Comment: NOTE: Reference range has not been established for total protein concentration in random urine specimens. Urine URINE / Unknown 09/23/2023 1 2:58 EDT 09/23/2023 21:05 EDT Provider Outr Resulting Lab URINALYSIS O RDERABLES [facility] [address] [place] [address] * (ABNORMAL) SPEP, INCLUDES QUANTITATION OF MONOCLONAL SPIKE PERFORMABLE (09/23/2023 12:58 EDT) Albumin % 61.9 55.8 - 66.1 % 09/24/2023 13:49 [facility] Albumin g/dL 4.1 3.6 - 5.2 g/dL 09/24/2023 13:49 [facility] Alpha-1 % 4.5 2.9 - 4.9 % 09/24/2023 13:49 [facility] Alpha-1 g/dL 0.30 0.15 - 0.40 g/dL 09/24/2023 13:49 [facility] Alpha-2 % 12.3(H) 7.1 - 11.8 % 09/24/2023 13:49 [facility] Alpha-2 g/dL 0.80 0.50 - 1.00 g/dL 09/24/2023 13:49 [facility] Beta % 10.3 8.4 - 13.1 % 09/24/2023 13:49 [facility] Beta g/dL 0.70 0.60 - 1.20 g/dL 09/24/2023 13:49 [facility] Gamma % 11.0(L) 11.1 - 18.8 % 09/24/2023 13:49 [facility] Gamma g/dL 0.70 0.60 - 1.60 g/dL 09/24/2023 13:49 [facility] SPEP Comment No apparent monoclonal protein seen on serum electrophoresis 09/24/2023 13:49 [facility] Comment:See scanned/suppleme ntary report. Total Protein 6.6 6.3 - 8.2 g/dL 09/24/2023 13:49 [facility] Blood VENOUS BLOOD / Unknown 09/23/2023 12:58 EDT 09/23/2023 21:05 EDT Provider Outr Resulting Lab CHEMISTRY & BLOOD GAS ORDERABLES Performing Organization Address [facility]/ZIP Co de Phone Number [facility] [address] [place], [place] [address] * PROTEIN, TOTAL, RANDOM, URINE (09/23/2023 12:58 EDT) Urine URINE / Unknown 09/23/2023 1 2:58 EDT 09/23/2023 21:05 EDT Provider Outr Resulting Lab URINALYSIS O RDERABLES Performing Organization Address [facility] Co de Phone Number [facility] [address] [place], [place] [address] * IMMUNOGLOBULINS (09/23/2023 12:58 EDT) IgG 671 610 - 1,616 mg/dL 09/24/2023 8:29 EDT [facility] IgA 144 85 - 499 mg/dL 09/24/2023 8:29 EDT [facility] IgM 120 35 - 242 mg/dL 09/24/2023 8:29 EDT [facility] Blood VENOUS BLOOD / Unknown 09/23/2023 12:58 EDT 09/23/2023 21:05 EDT Provider Outr Resulting Lab CHEMISTRY & BLOOD GAS ORDERABLES Performing Organization Address [facility]/ZIP Co de Phone Number [facility] [address] [place], [place] [id number] * PROTEIN, TOTAL (09/23/2023 12:58 EDT) Blood VENOUS BLOOD / Unknown 09/23/2023 12:58 EDT 09/23/2023 21:05 EDT Provider Outr Resulting Lab CHEMISTRY & BLOOD GAS ORDERABLES Performing Organization Address City/[facility]/ZIP Co de Phone Number [facility] [address] [place] [address] * HEPATITIS C AB W REFLEX TO HCV RNA BY PCR (10/20/2021 16:02 EDT) Hep C Antibody Negative Negative 10/23/2021 10:57 EDT [facility] Blood VENOUS BLOOD / Unknown 10/20/2021 16:02 EDT 10/21/2021 22:12 EDT Provider Outr Resulting Lab CHEMISTRY & BLOOD GAS ORDERABLES [facility] [address] [place] [address] from Last 3 Months or Most Recently Relevant to Health Maintenance Advance Directives For more information, please contact: [phone] Documents on File Type Date Recorded Patient Telephone Order Clerk Room Service Expl anation Advance 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 Default/Not Discussed Care Teams Spectral Scientist Relationship Specialty Start Date End [place] [address] PCP - General 11/12/22
--- OUTSIDE RECORDS SUMMARY | 2023-12-20 02:21 | XMS_ITS | Encounter Summary ---
Author Organization [facility] Address [address] [place] [address] Care Team Providers Care Sr Solutions Consultant Name Role Phone Jorge Chauhan MD Primary Care Provider Encounter Details Date Type Department Care Team (Late st Contact Info) Description 10/18/2021 Orders Only [facility] General Surgery - [facility] [address] [place], [place] [id number] Leni Blanchard RN Pre-op evaluation (Primary Dx); [...] gangrene documented in this encounter Care Teams Sr Solutions Consultant Relationship Specialty Start Date End Date Jorge Chauhan MD [address] [place] [id number] PCP - General Family Medicine - Primary Care 10/18/21 11/22/21 documented as of this encounter
--- OUTSIDE RECORDS SUMMARY | 2023-12-20 02:21 | XMS_ITS | Encounter Summary ---
Author Organization [facility] Address [address] [place] [address] Care Team Providers Care Plateman Name Role Phone Jovani Wharton DO Primary Care Provider [phone] Reason for Referral * Specialty Diagnoses / Procedures Referred By Contac t Referred To Contact Sanjuana Gaona NP [address] [place] [phone] Referral ID Status Reason Start Date Expiration Date Visits Re quested Visits Authorized Comments Please call the General Surgery clinic at [phone] if you have any questions for Dr. Lee. Please schedule a follow up in 2-3 weeks. * Specialty Diagnoses / Procedures Referred By Contac t Referred To Contact Sanjuana Gaona NP [address] [place] [phone] Referral ID Status Reason Start Date Expiration [...] Referred To Contact Sanjuana Gaona NP [address] [phone] Referral ID Status Reason Start Date Expiration [...] Referred To Contact Sanjuana Gaona NP [address] [phone] Referral ID Status Reason Start Date Expiration [...] Expiration Date Visits Re quested Visits Authorized [id number] 1 1 Encounter Details Date Type Department Care Team (Late st Contact Info) Description 07/31/2021 18:58 EST - 08/11/2021 12:47 EDT Hospital Encounter [facility] General Surgery Unit [address] [place] [address] Ollie Lee MD [address] [phone] Paraesophageal hernia Discharge Disposition: Home or Self [...] who presented on 07/31/21as a transfer from [facility] after presenting with acute onset abdominal pain secondary to an incarcerated paraesophageal hernia. He was taken to the OR at [facility] where a partial gastric reduction and suture gastropexy was performed at on 07/24/21. Unfortunately, while his symptoms did improve slightly, he still had significant pain and evidence of delayed emptying on UGI study. He was thus transferred to [facility] and continued on the TPN that was started at [facility]. An UGI was obtained the day after admission at [facility] where contrast was seen to traverse the [...] Administered Date(s) Administered ??? Covid-19 mRNA Vaccine (Sociall COVID-19) PF 0.3 ml IM (12 yrs+) [...] the left upper quadrant, and outside the [id number]. Soft tissues, bones and extrathoracic findings: There [...] non-reportable exam. FL UGI WO AIR W TROLLEY WIRE INSTALLER Result Date: 08/01/2021 FL UGI WO AIR W TROLLEY WIRE INSTALLER 08/01/2021 9:35 AM Signs and Symptoms/Comments: History [...] to tolerate oral intake of contrast. Findings: Sweatband Decorating Machine Operator KUB demonstrates a large air and contrast-filled [...] Please call the General Surgery clinic at [phone] if you have any questions for Dr. Lee. Please schedule a follow up in 2-3 weeks. Authorizing Provider: Sanjuana Gaona, LEGAL INSTRUMENTS EXAMINER Please notify your doctor for the following [...] MD 08/11/2021 11:43 General Surgery PGY-5 Pager [phone] documented in this encounter Medications at Time [...] Code Departure Means Destination Home or Self Chcf documented in this encounter Progress Notes * Lia Willis - 08/11/2021 1232 EDT SOCIAL WORK PROGRESS NOTE: Pt medically cleared to in home with no CM needs- provide ride at in. Natalie Willis LMSW Almond Huller II Pager: [phone] * Tomy Dewitt MD - 08/11/2021 0653 EDT Surgery Progress Note Admit Date: 07/31/2021 Hospital Day: LOS: 10 days Date of Service: 08/11/2021 Chief Complaint/Procedure: PEH; Transferred from [facility] 24 Hr Events: - No acute events [...] reversal) who presents as a transfer from [facility] after presenting with acute onset abdominal pain secondary to an incarcerated paraesophageal hernia. He was taken to the OR on 07/24 for anexploratory laparotomy, lysis of adhesions, reduction of his gastric contents, and suture gastropexy. Transferred to [facility] due to ongoing symptoms with imaging showing [...] MD 08/11/2021 6:53 General Surgery PGY-3 Pager [phone] * Lia Willis - 08/10/2021 1437 EDT SOCIAL WORK PROGRESS NOTE: Per MD team pt may be medically ready to dc home with tomorrow Friday 08/11 on full liquid diet. Pt has no CM needs that would prevent dc. SW CM will continue to follow and will continue to assist with a safe d/c when medically cleared. Natalie Willis LMSW Almond Huller II Pager: [phone] * Shannan Patel RD - 08/10/2021 1402 [...] results found for: ZINCMZN, COPPER, THIAMINE, FOLATE, [id number], METMMETHY, VITEALPH, RETINOL, VITD Lab Results Component Value Date/Time ALT 17 08/10/2021 05:56 AST 20 08/10/2021 05:56 ALKPHOS 75 08/10/2021 05:56 TBIL <0.5 08/10/2021 05:56 TRIG 196 08/07/2021 05:12 Estimated Nutrition Needs: [id number] lakshmi (BEE x 1.2-1.3) 87 gm pro [...] Patel RD, CD (Call PAS or use [employer] to page RD covering this unit) * Tomy Dewitt MD - 08/10/2021 0718 EDT Surgery Progress Note Admit Date: 07/31/2021 Hospital Day: LOS: 9 days Date of Service: 08/10/2021 Chief Complaint/Procedure: PEH; Transferred from [facility] 24 Hr Events: - No acute events overnight. TPN discontinued. Subjective: [place] great in the last 24 hours. Completely [...] reversal) who presents as a transfer from [facility] after presenting with acute onset abdominal pain secondary to an incarcerated paraesophageal hernia. He was taken to the OR on 07/24 for anexploratory laparotomy, lysis of adhesions, reduction of his gastric contents, and suture gastropexy. Transferred to [facility] due to ongoing symptoms with imaging showing [...] MD 08/10/2021 7:18 General Surgery PGY-3 Pager [phone] * Ashlie Greene MD - 08/09/2021 6042 EDT Surgery Progress Note Admit Date: 07/31/2021 Hospital Day: LOS: 8 days Date of Service: 08/09/2021 Chief Complaint/Procedure: PEH; Transferred from [facility] 24 Hr Events: - NAEON Subjective: Didn't [...] reversal) who presents as a transfer from [facility] after presenting with acute onset abdominal pain secondary to an incarcerated paraesophageal hernia. He was taken to the OR on 07/24 for anexploratory laparotomy, lysis of adhesions, reduction of his gastric contents, and suture gastropexy. Transferred to [facility] due to ongoing symptoms with imaging showing [...] MD 08/09/2021 7:50 General Surgery PGY-5 Pager [phone] * Lia Willis - 08/08/2021 1022 EDT SOCIAL WORK PROGRESS NOTE: Pt does not meet Medicare guidelines criteria for home TPN. MD team aware. Please refer back to 08/05 from [facility] Infusion pharmacy. Natalie Willis [facility] Almond Huller II Pager: [phone] * Ford Villa MD - 08/08/2021 0916 EDT Surgery Progress Note Admit Date: 07/31/2021 Hospital Day: LOS: 7 days Date of Service: 08/08/2021 Chief Complaint/Procedure: PEH; Transferred from [facility] 24 Hr Events: - NAEON Subjective: Reports [...] Wt 69.7 kg (153 lb 9.6 oz) [id number]% BMI 24.79 kg/m?? Intake/Output: I&O By Type [...] reversal) who presents as a transfer from [facility] after presenting with acute onset abdominal [...] or drinking He is walking frequently Per LEGAL INSTRUMENTS EXAMINER, pt. To return for surgery in 6-8 [...] results found for: ZINCMZN, COPPER, THIAMINE, FOLATE, [id number], METMMETHY, VITEALPH, RETINOL, VITD Lab Results Component Value Date/Time ALT 14 08/07/2021 05:12 AST 19 08/07/2021 05:12 ALKPHOS 60 08/07/2021 05:12 TBIL <0.5 08/07/2021 05:12 TRIG 196 08/07/2021 05:12 Estimated Nutrition Needs: 4250-7907 lakshmi (BEE x 1.2-1.3) 87 gm pro [...] Patel RD, CD (Call PAS or use [employer] to page RD covering this unit) * Ollie Lee MD - 08/07/2021 0747 EDT Surgery Progress Note Admit Date: 07/31/2021 Hospital Day: LOS: 6 days Date of Service: 08/07/2021 Chief Complaint/Procedure: PEH; Transferred from [facility] 24 Hr Events: - Tolerating small amounts [...] reversal) who presents as a transfer from [facility] after presenting with acute onset abdominal [...] Service: 08/06/2021 Chief Complaint/Procedure: PEH; Transferred from [facility] 24 Hr Events: - Reflux with clears [...] reversal) who presents as a transfer from [facility] after presenting with acute onset abdominal [...] the patient and discussed with the resident/medical student/LEGAL INSTRUMENTS EXAMINER team. I agree with the findings and plan of care documented in the resident's/medical student's/LEGAL INSTRUMENTS EXAMINER's note. Holli Yancey Division of General Surgery [...] Service: 08/05/2021 Chief Complaint/Procedure: PEH; Transferred from [facility] 24 Hr Events: - Tolerating 2oz/hr of [...] reversal) who presents as a transfer from [facility] after presenting with acute onset abdominal [...] MD 08/05/2021 9:18 General Surgery PGY-5 Pager [phone] Associated attestation - Holli Yancey MD - 08/05/2021 1628 EST I saw and examined the patient and discussed with the resident/medical student/LEGAL INSTRUMENTS EXAMINER team. I agree with the findings and plan of care documented in the resident's/medical student's/LEGAL INSTRUMENTS EXAMINER's note. Holli Yancey Division of General Surgery Colon and Rectal Surgery * Lia Willis - 08/05/2021 0805 EST Per infusion pharmacy please read below: Coverage and Benefits Estimate for Home Infusion services: Name: Mathew Mendez : 1955 Home Infusion Therapy: Parenteral Nutrition Benefits estimate completed on: 08/04/2021 [facility] PPO plan is active on a calendar year basis as of 05/27/2021. This [facility] plan follows all Medicare guidelines. Plan [...] Insurance coverage have to be reported to [facility] so timely authorizations for services can be obtained. If insurance coverage is terminated during therapy, patient should contact [facility] Home Infusion services at as well as Patient Assistance Program at . * Lia Willis - 08/04/2021 1456 EST SOCIAL WORK PROGRESS NOTE: Per MD [...] safe d/c when medically cleared. Natalie Willis TRAINING PROFESSIONAL Almond Huller II Pager: [phone] * Ollie Lee MD - 08/04/2021 0521 EST Surgery Progress Note Admit Date: 07/31/2021 Hospital Day: LOS: 3 days Date of Service: 08/04/2021 Chief Complaint/Procedure: PEH; Transferred from [facility] 24 Hr Events: - Vomited x 1 [...] Wt 69.7 kg (153 lb 9.6 oz) MyB793% BMI 24.79 kg/m?? Intake/Output: I&O By Type [...] reversal) who presents as a transfer from [facility] after presenting with acute onset abdominal [...] Pepe MD 08/04/2021 8:15 General Surgery, PGY-2R #[phone] blue surgery pager Attestation statement: I saw [...] reported vomiting in bathroom. MDs notified. * Isac Sharma - 08/03/2021 1455 EST Spiritual Care Department Gaming Investigator Note Re: Mathew Mendez : 1955 Room: [place] [address] Service: General Surgery Spiritism: [facility] Mathew has received a visit from the Spiritual Care Department on 08/03/2021. Assessment/Comments: Mathew spoke about his hospitalization and need for a second surgery in 3 months. He is doing well and needs to restart eating before he can go home. Gaming Investigator provided a comforting presence, offered prayer and sacraments. DEMOGRAPHICS Spiritual Care Welcomed Patient Is Synagogue Importance Moderately Important Current Support System Spouse/Significant [...] to Process Issue CARE PLAN Plan Continued Gaming Investigator Support Consult With Additional Support Was Clergy Needed? Yes, provided, Bag Liner TIME STAMP: Total time spent 15 minutes [...] results found for: ZINCMZN, COPPER, THIAMINE, FOLATE, [id number], METMMETHY, VITEALPH, RETINOL, VITD Lab Results Component [...] Service: 08/03/2021 Chief Complaint/Procedure: PEH; Transferred from [facility] 24 Hr Events: - Was advanced to [...] reversal) who presents as a transfer from [facility] after presenting with acute onset abdominal [...] Service: 08/02/2021 Chief Complaint/Procedure: PEH; Transferred from [facility] 24 Hr Events: NG removed, started on [...] reversal) who presents as a transfer from [facility] after presenting with acute onset abdominal [...] Type of housing (single family, condo, apartment, penitentiary, single room occupancy, [facility] funded hotel room, group assisted) - Single family home Who does the patient live with? Lives with Yen Does the patient have access to their own bedroom/bathroom/kitchen - or is it shared with others? Shared with Name of housing complex (ex [employer] [employer], [facility], etc)- N/A Housing Authority/Managing Organization - N/A Community Care Providers (insurance case manager, [facility] nurse, etc) name and contact information- N/A [...] Yes, new copy in paper chart @ [facility] DIRECTIVES FOR FINANCES: TRANSPORTATION: Transportation: Family, Self Transportation Additional Details: Yen can provide ride home at in Patient expects to be discharged to: home with CULTURAL, MOSQUE and/or LANGUAGE factors affecting health care/discharge planning: Spiritual/Cultural Requests: None Insurance Information: Medical Insurance: Yes Type of insurance: Medicare Medicare type: C ([employer] Blue Shield Medicare Advantage Plan) Referred [...] Home Health Services: None DME Provider: Pharmacy: [id number] - [address] [address] Home Health: Other: [facility] TRANSITION PLAN: [...] available if dc needs arise. Natalie Willis TRAINING PROFESSIONAL Almond Huller II Pager: [phone] LIA WILLIS 08/01/2021 9:12 * Ashlie Greene MD - 08/01/2021 0820 EST Surgery Progress Note Admit Date: 07/31/2021 Hospital Day: LOS: 1 day Date of Service: 08/01/2021 Chief Complaint/Procedure: PEH s/p 24 Hr Events: Transferred from [facility] Admitted and NGT continued to [facility] Subjective: Patient feeling alright. Not having any [...] reversal) who presents as a transfer from [facility] after presenting with acute onset abdominal pain secondary to an incarcerated paraesophageal hernia. He was taken to the OR on 07/24 for anexploratory laparotomy, lysis of adhesions, reduction of his gastric contents, and suture gastropexy. Patient with ongoing signs Of partial obstruction. Will repeat UGI today. Plan: - NPO with NGT to [facility] - Repeat UGI today - Nutrition consult for TPN - Continue PICC - BID PPI - Heparin dvt ppx Ashlie Greene MD 08/01/2021 8:20 * Tiffanie Kerr RN - 07/31/20212031 EST Called to clear patients PICC line Data: Assessed patient's PICC line that was placed at [facility] in [facility]. Triple Lumen PICC to the Right Side. Action: Assessed PICC, all 3 lines flush well with brisk blood return. Non reflux valves changed. Dressing intact, on schedule to be changed this coming Wednesday 08/02 which is 7 days post placement date. Response: VAT will monitor PICC as needed per [facility] Policy. TIFFANIE KERR RN 07/31/2021 20:33 [...] reversal) who presents as a transfer from [facility] after presenting with acute onset abdominal [...] and was knee buckling. He presented to [facility] on 07/23, and CT scan revealed a [...] was made to transfer the patient to [facility] for further management. On arrival to [...] reversal) who presents as a transfer from [facility] after presenting with acute onset abdominal [...] outlet obstruction and he was subsequently transferredto [facility] for further care after repeat barium [...] Arreola MD PGY-1 - General Surgery Pager #[phone] Attestation statement: I saw and examined the [...] reversal) who presents as a transfer from [facility] after presenting with acute onset abdominal pain secondary to an incarcerated paraesophageal hernia Clinical Course Since Last RD Visit: Subjective: Pt states he has been eating well at home and denies recent wt loss. He takes B12 supplement at home Current Nutrition Orders: NPO Nutrition Focused Physical Findings: Edema: 0 Digestive Systems: Last BM SODA FLAKER Skin: no issues NGT to suction Anthropometrics: [...] WNL Midaxillary Line: unable to assess Muscle: Latter Day region: WNL Clavicle Region: WNL Shoulder and [...] given at discharge? Yes Natalie Willis LMSW Almond Huller II Pager: [phone] * Plan of Care - John Rocha [...] bed, at bedside. Nichole Peña 08/04/2021 10:47 * Plan of Care - Trung Marcus [...] 14:46 EST FL UGI WO AIR W TROLLEY WIRE INSTALLER Routine 08/01/2021 10:35 EST XR ABDOMEN 1 VIEW Routine 08/01/2021 8:3 4 EST COMPLETE BLOOD COUNT AND DIFFERENTIAL Routine 08/01/2021 5:26 EST PHOSPHORUS Routine 08/01/2021 5:25 EST MAGNESIUM Routine 08/01/2021 5:25 EST COMPREHENSIVE METABOLIC PANEL (CMP) Routine 08/01/2021 5:25 EST ZZCOVID-19 TEST [facility] PCR Today 07/31/2021 21:37 EST [...] 70 - 100 mg/dL 08/11/2021 6:00 EDT [facility] HN LAB POC COMMENT (GLUCOSE) Test Performed by Nursing Services 08/11/2021 6:00 EDT [facility] Blood CAPILLARY BLOOD / Unknown 08/11/2021 5:59 EDT 08/11/2021 6:00 EDT Sanjuana Gaona NP POINT OF CARE TEST O RDERABLES [facility] [address] [place] [address] * (ABNORMAL) COMPLETE BLOOD COUNT AND DIFFERENTIAL (08/11/2021 5:55 EDT) WBC 5.86 4.00 - 10.40 K/cmm 08/11/2021 6:12 EDT [facility] RBC 3.04(L) 4.36 - 5.78 M/cmm 08/11/2021 6:12 [facility] Hemoglobin 9.3(L) 13.8 - 17.3 gm/dL 08/11/2021 6:12 [facility] HCT 27.6(L) 39.5 - 50.2 % 08/11/2021 6:12 [facility] MCV 91 81 - 95 fl 08/11/2021 6:12 [facility] MCH 30.6 27.6 - 33.0 pg 08/11/2021 6:12 [facility] MCHC 33.7 32.8 - 36.4 gm/dL 08/11/2021 6:12 [facility] RDW-CV 13.1 <14.2 % 08/11/2021 6:12 [facility] RDW-SD 43.2 <46.0 fl 08/11/2021 6:12 [facility] PLT 188 141 - 377 K/cmm 08/11/2021 6:12 [facility] MPV 11.8 9.5 - 12.7 fl 08/11/2021 6:12 [facility] % Neutrophils 53.2 % 08/11/2021 6:12 [facility] % Lymphocytes 19.8 % 08/11/2021 6:12 [facility] % Monocytes 10.1 % 08/11/2021 6:12 [facility] % Eosinophils 15.2 % 08/11/2021 6:12 [facility] % Basophils 1.2 % 08/11/2021 6:12 [facility] % Immature Grans 0.5 % 08/12/19 6:12 [facility] Absolute Neutrophils 3.12 2.20 - 8.85 K/cmm 08/11/2021 6:12 [facility] Absolute Lymphocytes 1.16 1.09 - 3.30 K/cmm 08/11/2021 6:12 [facility] Absolute Monocytes 0.59 0.10 - 0.80 K/cmm 08/11/2021 6:12 EDT [facility] Absolute Eosinophils 0.89(H) 0.03 - 0.61 K/cmm 08/11/2021 6:12 EDT [facility] ABS Basophils 0.07 0.01 - 0.11 K/cmm 08/11/2021 6:12 EDT [facility] Absolute Immature Grans 0.03 0.00 - 0.06 K/cmm 08/11/2021 6:12 EDT [facility] Type of Differential: Auto 08/11/2021 6:12 EDT [facility] Blood VENOUS BLOOD / Unknown Venipuncture / Unknown 08/11/2021 5:55 EDT 08/11/2021 6:02 EDT Yomi Arreola MD PACKAGES & DNA PROBE ORDERABLES Performing Organization Address City/[facility] Co de Phone Number [facility] [address] [place] [address] * (ABNORMAL) PHOSPHORUS (08/11/2021 5:54 EDT) Phosphorus 4.6(H) 2.5 - 4.5 mg/dL 08/11/2021 6:33 EDT [facility] Blood VENOUS BLOOD / Unknown Venipuncture / Unknown 08/11/2021 5:54 EDT 08/11/2021 6:01 EDT Yomi Arreola MD CHEMISTRY & BLOOD GA S ORDERABLES Performing Organization Address City/[facility] Co de Phone Number [facility] [address] [place] [address] * MAGNESIUM (08/11/2021 5:54 EDT) Magnesium 1.8 1.7 - 2.8 mg/dL 08/11/2021 6:33 EDT [facility] Blood VENOUS BLOOD / Unknown Venipuncture / Unknown 08/11/2021 5:54 EDT 08/11/2021 6:01 EDT Yomi Arreola MD CHEMISTRY & BLOOD GA S ORDERABLES [facility] [address] [place] [address] * (ABNORMAL) COMPREHENSIVE METABOLIC PANEL (CMP) (08/11/2021 5:54 EDT) Sodium 136 136 - 145 mmol/L 08/11/2021 6:33 [facility] Potassium 4.6 3.5 - 5.0 mmol/L 08/11/2021 6:33 [facility] Chloride 101 96 - 110 mmol/L 08/11/2021 6:33 [facility] CO2 Total 24 22 - 32 mmol/L 08/11/2021 6:33 [facility] Glucose 89 70 - 100 mg/dL 08/11/2021 6:33 [facility] BUN 55(H) 10 - 26 mg/dL 08/11/2021 6:33 [facility] Creatinine 2.30(H) 0.66 - 1.25 mg/dL 08/11/2021 6:33 [facility] eGFR 28(L) >60 mL/min/1.7 3m2 08/11/2021 6:33 [facility] Total Protein 6.2(L) 6.3 - 8.2 g/dL 08/11/2021 6:33 [facility] Albumin 3.8 3.4 - 4.9 g/dL 08/11/2021 6:33 [facility] Alkaline Phosphatase 68 38 - 126 U/L 08/11/2021 6:33 [facility] AST 19 15 - 46 U/L 08/11/2021 6:33 [facility] ALT 16 <50 U/L 08/11/2021 6:33 [facility] Bilirubin, Total <0.5 <1.4 mg/dL 08/12/19 6:33 [facility] Calcium 9.2 8.5 - 10.5 mg/dL 08/11/2021 6:33 EDT [facility] Albumin/Globulin Ratio 1.6 1.0 - 2.5 08/11/2021 6:33 EDT [facility] Anion Gap 11 5 - 14 08/11/2021 6:33 EDT [facility] Blood VENOUS BLOOD / Unknown Venipuncture / Unknown 08/11/2021 5:54 EDT 08/11/2021 6:01 EDT Yomi Arreola MD CHEMISTRY & BLOOD GA S ORDERABLES Performing Organization Address City/[facility]/ZIP Co de Phone Number [facility] [address] [place] [address] * POCT GLUCOSE, INTERFACED (08/10/2021 5:59 EDT) Glucose, POC 99 70 - 100 mg/dL 08/10/2021 6:00 EDT [facility] HN LAB POC COMMENT (GLUCOSE) Test Performed by Nursing Services 08/10/2021 6:00 EDT [facility] Blood CAPILLARY BLOOD / Unknown 08/10/2021 5:59 EDT 08/10/2021 6:00 EDT Sanjuana Gaona LEGAL INSTRUMENTS EXAMINER POINT OF CARE TEST O RDERABLES Performing Organization Address City/[facility]/ZIP Co de Phone Number [facility] [address] [place] [id number] * (ABNORMAL) PHOSPHORUS (08/10/2021 5:56 EDT) Phosphorus 4.7(H) 2.5 - 4.5 mg/dL 08/10/2021 6:39 EDT [facility] Blood VENOUS BLOOD / Unknown Venipuncture / Unknown 08/10/2021 5:56 EDT 08/10/2021 6:08 EDT Yomi Arreola MD CHEMISTRY & BLOOD GA S ORDERABLES [facility] [address] [place] [address] * MAGNESIUM (08/10/2021 5:56 EDT) Pathologist [facility] Magnesium 1.9 1.7 - 2.8 mg/dL 08/10/2021 6:39 EDT [facility] Blood VENOUS BLOOD / Unknown Venipuncture / Unknown 08/10/2021 5:56 EDT 08/10/2021 6:08 EDT Yomi Arreola MD CHEMISTRY & BLOOD GA S ORDERABLES [facility] [address] [place] [address] * (ABNORMAL) COMPLETE BLOOD COUNT AND DIFFERENTIAL (08/10/2021 5:56 EDT) Pathologist [facility] WBC 6.38 4.00 - 10.40 K/cmm 08/10/2021 6:12 [facility] RBC 3.14(L) 4.36 - 5.78 M/cmm 08/10/2021 6:12 [facility] Hemoglobin 9.7(L) 13.8 - 17.3 gm/dL 08/10/2021 6:12 [facility] HCT 28.3(L) 39.5 - 50.2 % 08/10/2021 6:12 [facility] MCV 90 81 - 95 fl 08/10/2021 6:12 [facility] MCH 30.9 27.6 - 33.0 pg 08/10/2021 6:12 [facility] MCHC 34.3 32.8 - 36.4 gm/dL 08/10/2021 6:12 [facility] RDW-CV 13.1 <14.2 % 08/10/2021 6:12 [facility] RDW-SD 43.0 <46.0 fl 08/10/2021 6:12 [facility] PLT 204 141 - 377 K/cmm 08/10/2021 6:12 [facility] MPV 11.5 9.5 - 12.7 fl 08/10/2021 6:12 [facility] % Neutrophils 59.4 % 08/10/2021 6:12 [facility] % Lymphocytes 16.8 % 08/10/2021 6:12 [facility] % Monocytes 7.8 % 08/10/2021 6:12 [facility] % Eosinophils 14.1 % 08/10/2021 6:12 [facility] % Basophils 1.4 % 08/10/2021 6:12 [facility] % Immature Grans 0.5 % 08/11/19 6:12 [facility] Absolute Neutrophils 3.79 2.20 - 8.85 K/cmm 08/10/2021 6:12 [facility] Absolute Lymphocytes 1.07(L) 1.09 - 3.30 K/cmm 08/10/2021 6:12 [facility] Absolute Monocytes 0.50 0.10 - 0.80 K/cmm 08/10/2021 6:12 [facility] Absolute Eosinophils 0.90(H) 0.03 - 0.61 K/cmm 08/10/2021 6:12 [facility] ABS Basophils 0.09 0.01 - 0.11 K/cmm 08/10/2021 6:12 [facility] Absolute Immature Grans 0.03 0.00 - 0.06 K/cmm 08/10/2021 6:12 [facility] Type of Differential: Auto 08/10/2021 6:12 [facility] Blood VENOUS BLOOD / Unknown Venipuncture / Unknown 08/10/2021 5:56 EDT 08/10/2021 6:05 EDT Yomi Arreola MD PACKAGES & DNA PROBE ORDERABLES [facility] [address] [place] [address] * (ABNORMAL) COMPREHENSIVE METABOLIC PANEL (CMP) (08/10/2021 5:56 EDT) Sodium 139 136 - 145 mmol/L 08/10/2021 6:39 [facility] Potassium 4.7 3.5 - 5.0 mmol/L 08/10/2021 6:39 [facility] Chloride 101 96 - 110 mmol/L 08/10/2021 6:39 [facility] CO2 Total 23 22 - 32 mmol/L 08/10/2021 6:39 [facility] Glucose 97 70 - 100 mg/dL 08/10/2021 6:39 [facility] BUN 58(H) 10 - 26 mg/dL 08/10/2021 6:39 [facility] Creatinine 2.30(H) 0.66 - 1.25 mg/dL 08/10/2021 6:39 [facility] eGFR 28(L) >60 mL/min/1.7 3m2 08/10/2021 6:39 [facility] Total Protein 6.7 6.3 - 8.2 g/dL 08/10/2021 6:39 [facility] Albumin 4.2 3.4 - 4.9 g/dL 08/10/2021 6:39 [facility] Alkaline Phosphatase 75 38 - 126 U/L 08/10/2021 6:39 [facility] AST 20 15 - 46 U/L 08/10/2021 6:39 [facility] ALT 17 <50 U/L 08/10/2021 6:39 [facility] Bilirubin, Total <0.5 <1.4 mg/dL 08/11/19 6:39 [facility] Calcium 9.8 8.5 - 10.5 mg/dL 08/10/2021 6:39 [facility] Albumin/Globulin Ratio 1.7 1.0 - 2.5 08/10/2021 6:39 [facility] Anion Gap 15(H) 5 - 14 08/10/2021 6:39 EDT [facility] Blood VENOUS BLOOD / Unknown Venipuncture / Unknown 08/10/2021 5:56 EDT 08/10/2021 6:08 EDT Yomi Arreola MD CHEMISTRY & BLOOD GA S ORDERABLES Performing Organization Address City/[facility]/ZIP Co de Phone Number [facility] [address] [place] [address] * (ABNORMAL) POCT GLUCOSE, INTERFACED (08/09/2021 5:15 EDT) Glucose, POC 116(H) 70 - 100 mg/dL 08/09/2021 5:17 EDT [facility] HN LAB POC COMMENT (GLUCOSE) Test Performed by Nursing Services 08/09/2021 5:17 EDT [facility] Blood CAPILLARY BLOOD / Unknown 08/09/2021 5:15 EDT 08/09/2021 5:17 EDT Sanjuana Gaona LEGAL INSTRUMENTS EXAMINER POINT OF CARE TEST O RDERABLES Performing Organization Address City/[facility]/ZIP Co de Phone Number [facility] [address] [place] [address] * PHOSPHORUS (08/09/2021 5:13 EDT) Phosphorus 3.8 2.5 - 4.5 mg/dL 08/09/2021 6:01 EDT [facility] Blood VENOUS BLOOD / Unknown Venipuncture / Unknown 08/09/2021 5:13 EDT 08/09/2021 5:23 EDT Yomi Arreola MD CHEMISTRY & BLOOD GA S ORDERABLES Performing Organization Address City/[facility]/ZIP Co de Phone Number [facility] [address] [place] [address] * MAGNESIUM (08/09/2021 5:13 EDT) Magnesium 2.0 1.7 - 2.8 mg/dL 08/09/2021 6:01 [facility] Blood VENOUS BLOOD / Unknown Venipuncture / Unknown 08/09/2021 5:13 EDT 08/09/2021 5:23 EDT Yomi Arreola MD CHEMISTRY & BLOOD GA S ORDERABLES [facility] [address] [place] [address] * (ABNORMAL) COMPLETE BLOOD COUNT AND DIFFERENTIAL (08/09/2021 5:13 EDT) WBC 7.59 4.00 - 10.40 K/cmm 08/09/2021 5:27 [facility] RBC 2.90(L) 4.36 - 5.78 M/cmm 08/09/2021 5:27 [facility] Hemoglobin 8.9(L) 13.8 - 17.3 gm/dL 08/09/2021 5:27 [facility] HCT 26.3(L) 39.5 - 50.2 % 08/09/2021 5:27 [facility] MCV 91 81 - 95 fl 08/09/2021 5:27 [facility] MCH 30.7 27.6 - 33.0 pg 08/09/2021 5:27 [facility] MCHC 33.8 32.8 - 36.4 gm/dL 08/09/2021 5:27 [facility] RDW-CV 13.0 <14.2 % 08/09/2021 5:27 [facility] RDW-SD 43.0 <46.0 fl 08/09/2021 5:27 [facility] PLT 209 141 - 377 K/cmm 08/09/2021 5:27 [facility] MPV 11.7 9.5 - 12.7 fl 08/09/2021 5:27 [facility] % Neutrophils 69.0 % 08/09/2021 5:27 [facility] % Lymphocytes 11.7 % 08/09/2021 5:27 [facility] % Monocytes 7.4 % 08/09/2021 5:27 [facility] % Eosinophils 10.4 % 08/09/2021 5:27 [facility] % Basophils 1.2 % 08/09/2021 5:27 [facility] % Immature Grans 0.3 % 08/10/19 5:27 [facility] Absolute Neutrophils 5.24 2.20 - 8.85 K/cmm 08/09/2021 5:27 [facility] Absolute Lymphocytes 0.89(L) 1.09 - 3.30 K/cmm 08/09/2021 5:27 [facility] Absolute Monocytes 0.56 0.10 - 0.80 K/cmm 08/09/2021 5:27 [facility] Absolute Eosinophils 0.79(H) 0.03 - 0.61 K/cmm 08/09/2021 5:27 [facility] ABS Basophils 0.09 0.01 - 0.11 K/cmm 08/09/2021 5:27 [facility] Absolute Immature Grans 0.02 0.00 - 0.06 K/cmm 08/09/2021 5:27 [facility] Type of Differential: Auto 08/09/2021 5:27 [facility] Blood VENOUS BLOOD / Unknown Venipuncture / Unknown 08/09/2021 5:13 EDT 08/09/2021 5:18 EDT Yomi Arreola MD PACKAGES & DNA PROBE ORDERABLES [facility] [address] [place] [address] * (ABNORMAL) COMPREHENSIVE METABOLIC PANEL (CMP) (08/09/2021 5:13 EDT) Sodium 138 136 - 145 mmol/L 08/09/2021 6:01 [facility] Potassium 4.4 3.5 - 5.0 mmol/L 08/09/2021 6:01 [facility] Chloride 104 96 - 110 mmol/L 08/09/2021 6:01 [facility] CO2 Total 22 22 - 32 mmol/L 08/09/2021 6:01 [facility] Glucose 109(H) 70 - 100 mg/dL 08/09/2021 6:01 [facility] BUN 59(H) 10 - 26 mg/dL 08/09/2021 6:01 [facility] Creatinine 2.05(H) 0.66 - 1.25 mg/dL 08/09/2021 6:01 [facility] eGFR 33(L) >60 mL/min/1.7 3m2 08/09/2021 6:01 [facility] Total Protein 6.2(L) 6.3 - 8.2 g/dL 08/09/2021 6:01 [facility] Albumin 3.7 3.4 - 4.9 g/dL 08/09/2021 6:01 [facility] Alkaline Phosphatase 67 38 - 126 U/L 08/09/2021 6:01 [facility] AST 18 15 - 46 U/L 08/09/2021 6:01 [facility] ALT 16 <50 U/L 08/09/2021 6:01 [facility] Bilirubin, Total <0.5 <1.4 mg/dL 08/10/19 22 6:01 [facility] Calcium 9.7 8.5 - 10.5 mg/dL 08/09/2021 6:01 [facility] Albumin/Globulin Ratio 1.5 1.0 - 2.5 08/09/2021 6:01 [facility] Anion Gap 12 5 - 14 08/09/2021 6:01 [facility] Blood VENOUS BLOOD / Unknown Venipuncture / Unknown 08/09/2021 5:13 EDT 08/09/2021 5:23 EDT Yomi Arreola MD CHEMISTRY & BLOOD GA S ORDERABLES [facility] [address] [place] [address] * PHOSPHORUS (08/08/2021 6:04 EDT) Phosphorus 4.4 2.5 - 4.5 mg/dL 08/08/2021 7:02 EDT [facility] Blood VENOUS BLOOD / Unknown Venipuncture / Unknown 08/08/2021 6:04 EDT 08/08/2021 6:17 EDT Yomi Arreola MD CHEMISTRY & BLOOD GA S ORDERABLES Performing Organization Address [facility]/ZIP Co de Phone Number [facility] [address] [place] [address] * MAGNESIUM (08/08/2021 6:04 EDT) Magnesium 2.0 1.7 - 2.8 mg/dL 08/08/2021 7:02 EDT [facility] Blood VENOUS BLOOD / Unknown Venipuncture / Unknown 08/08/2021 6:04 EDT 08/08/2021 6:17 EDT Yomi Arreola MD CHEMISTRY & BLOOD GA S ORDERABLES Performing Organization Address City/[facility] Co de Phone Number [facility] [address] [place] [address] * (ABNORMAL) COMPLETE BLOOD COUNT AND DIFFERENTIAL (08/08/2021 6:04 EDT) WBC 6.05 4.00 - 10.40 K/cmm 08/08/2021 6:22 EDT [facility] RBC 2.92(L) 4.36 - 5.78 M/cmm 08/08/2021 6:22 EDT [facility] Hemoglobin 8.7(L) 13.8 - 17.3 gm/dL 08/08/2021 6:22 EDT [facility] HCT 27.1(L) 39.5 - 50.2 % 08/08/2021 6:22 [facility] MCV 93 81 - 95 fl 08/08/2021 6:22 [facility] MCH 29.8 27.6 - 33.0 pg 08/08/2021 6:22 [facility] MCHC 32.1(L) 32.8 - 36.4 gm/dL 08/08/2021 6:22 [facility] RDW-CV 12.9 <14.2 % 08/08/2021 6:22 [facility] RDW-SD 43.9 <46.0 fl 08/08/2021 6:22 [facility] PLT 206 141 - 377 K/cmm 08/08/2021 6:22 [facility] MPV 11.6 9.5 - 12.7 fl 08/08/2021 6:22 [facility] % Neutrophils 57.2 % 08/08/2021 6:22 [facility] % Lymphocytes 17.7 % 08/08/2021 6:22 [facility] % Monocytes 9.3 % 08/08/2021 6:22 [facility] % Eosinophils 14.0 % 08/08/2021 6:22 [facility] % Basophils 1.3 % 08/08/2021 6:22 [facility] % Immature Grans 0.5 % 08/09/19 6:22 [facility] Absolute Neutrophils 3.46 2.20 - 8.85 K/cmm 08/08/2021 6:22 [facility] Absolute Lymphocytes 1.07(L) 1.09 - 3.30 K/cmm 08/08/2021 6:22 [facility] Absolute Monocytes 0.56 0.10 - 0.80 K/cmm 08/08/2021 6:22 [facility] Absolute Eosinophils 0.85(H) 0.03 - 0.61 K/cmm 08/08/2021 6:22 [facility] ABS Basophils 0.08 0.01 - 0.11 K/cmm 08/08/2021 6:22 [facility] Absolute Immature Grans 0.03 0.00 - 0.06 K/cmm 08/08/2021 6:22 [facility] Type of Differential: Auto 08/08/2021 6:22 [facility] Blood VENOUS BLOOD / Unknown Venipuncture / Unknown 08/08/2021 6:04 EDT 08/08/2021 6:15 EDT Yomi Arreola MD PACKAGES & DNA PROBE ORDERABLES [facility] [address] [place] [address] * (ABNORMAL) COMPREHENSIVE METABOLIC PANEL (CMP) (08/08/2021 6:04 EDT) Sodium 138 136 - 145 mmol/L 08/08/2021 7:02 [facility] Potassium 4.7 3.5 - 5.0 mmol/L 08/08/2021 7:02 [facility] Chloride 106 96 - 110 mmol/L 08/08/2021 7:02 [facility] CO2 Total 19(L) 22 - 32 mmol/L 08/08/2021 7:02 [facility] Glucose 114(H) 70 - 100 mg/dL 08/08/2021 7:02 [facility] BUN 56(H) 10 - 26 mg/dL 08/08/2021 7:02 [facility] Creatinine 2.17(H) 0.66 - 1.25 mg/dL 08/08/2021 7:02 [facility] eGFR 30(L) >60 mL/min/1.7 3m2 08/08/2021 7:02 [facility] Total Protein 6.2(L) 6.3 - 8.2 g/dL 08/08/2021 7:02 [facility] Albumin 3.7 3.4 - 4.9 g/dL 08/08/2021 7:02 [facility] Alkaline Phosphatase 66 38 - 126 U/L 08/08/2021 7:02 [facility] AST 20 15 - 46 U/L 08/08/2021 7:02 [facility] ALT 16 <50 U/L 08/08/2021 7:02 [facility] Bilirubin, Total <0.5 <1.4 mg/dL 08/09/19 7:02 [facility] Calcium 9.5 8.5 - 10.5 mg/dL 08/08/2021 7:02 [facility] Albumin/Globulin Ratio 1.5 1.0 - 2.5 08/08/2021 7:02 [facility] Anion Gap 13 5 - 14 08/08/2021 7:02 [facility] Blood VENOUS BLOOD / Unknown Venipuncture / Unknown 08/08/2021 6:04 EDT 08/08/2021 6:17 EDT Yomi Arreola MD CHEMISTRY & BLOOD GA S ORDERABLES [facility] [address] [place] [address] * FL OUTSIDE IMAGES (08/07/2021 13:27 EDT) Narrative 08/07/2021 13:27 EDT This is a non-reportable exam. External Imaging IMG OTHER IMAGING OR DERABLES * TRIGLYCERIDE (08/07/2021 5:12 EDT) Triglyceride 196 See Note mg/dL 08/07/2021 5:45 EDT [facility] Comment: Normal: ? <150 mg/dL Borderline High: ??150 - 199 mg/dL High: ? 200 - 499 mg/dL Very High: ?> or = 500 mg/dL Blood VENOUS BLOOD / Unknown Venipuncture / Unknown 08/07/2021 5:12 EDT 08/07/2021 5:16 EDT Sanjuana Gaona NP CHEMISTRY & BLOOD GA S ORDERABLES Performing Organization Address City/[facility]/ZIP Co de Phone Number [facility] [address] [place] [address] * BILIRUBIN DIRECT/INDIRECT (08/07/2021 5:12 EDT) Conjugated Bilirubin 0.0 <=0.3 mg/dL 08/07/2021 5:45 EDT [facility] Unconjugated Bilirubin 0.0 <=1.1 mg/dL 08/07/2021 5:45 EDT [facility] Blood VENOUS BLOOD / Unknown Venipuncture / Unknown 08/07/2021 5:12 EDT 08/07/2021 5:16 EDT Sanjuana Gaona NP CHEMISTRY & BLOOD GA S ORDERABLES Performing Organization Address City/[facility]/ZIP Co de Phone Number [facility] [address] [place] [address] * PHOSPHORUS (08/07/2021 5:12 EDT) Phosphorus 4.1 2.5 - 4.5 mg/dL 08/07/2021 5:45 EDT [facility] Blood VENOUS BLOOD / Unknown Venipuncture / Unknown 08/07/2021 5:12 EDT 08/07/2021 5:16 EDT Yomi Arreola MD CHEMISTRY & BLOOD GA S ORDERABLES [facility] [address] [place] [address] * MAGNESIUM (08/07/2021 5:12 EDT) Magnesium 2.1 1.7 - 2.8 mg/dL 08/07/2021 5:45 EDT [facility] Blood VENOUS BLOOD / Unknown Venipuncture / Unknown 08/07/2021 5:12 EDT 08/07/2021 5:16 EDT Yomi Arreola MD CHEMISTRY & BLOOD GA S ORDERABLES [facility] [address] [place] [address] * (ABNORMAL) COMPLETE BLOOD COUNT AND DIFFERENTIAL (08/07/2021 5:12 EDT) WBC 5.83 4.00 - 10.40 K/cmm 08/07/2021 5:23 EDT [facility] RBC 2.73(L) 4.36 - 5.78 M/cmm 08/07/2021 5:23 [facility] Hemoglobin 8.4(L) 13.8 - 17.3 gm/dL 08/07/2021 5:23 [facility] HCT 25.5(L) 39.5 - 50.2 % 08/07/2021 5:23 [facility] MCV 93 81 - 95 fl 08/07/2021 5:23 [facility] MCH 30.8 27.6 - 33.0 pg 08/07/2021 5:23 [facility] MCHC 32.9 32.8 - 36.4 gm/dL 08/07/2021 5:23 [facility] RDW-CV 12.9 <14.2 % 08/07/2021 5:23 [facility] RDW-SD 43.6 <46.0 fl 08/07/2021 5:23 [facility] PLT 204 141 - 377 K/cmm 08/07/2021 5:23 [facility] MPV 11.5 9.5 - 12.7 fl 08/07/2021 5:23 [facility] % Neutrophils 54.6 % 08/07/2021 5:23 [facility] % Lymphocytes 17.3 % 08/07/2021 5:23 [facility] % Monocytes 10.1 % 08/07/2021 5:23 [facility] % Eosinophils 16.0 % 08/07/2021 5:23 [facility] % Basophils 1.5 % 08/07/2021 5:23 [facility] % Immature Grans 0.5 % 08/08/19 5:23 [facility] Absolute Neutrophils 3.18 2.20 - 8.85 K/cmm 08/07/2021 5:23 [facility] Absolute Lymphocytes 1.01(L) 1.09 - 3.30 K/cmm 08/07/2021 5:23 [facility] Absolute Monocytes 0.59 0.10 - 0.80 K/cmm 08/07/2021 5:23 [facility] Absolute Eosinophils 0.93(H) 0.03 - 0.61 K/cmm 08/07/2021 5:23 [facility] ABS Basophils 0.09 0.01 - 0.11 K/cmm 08/07/2021 5:23 [facility] Absolute Immature Grans 0.03 0.00 - 0.06 K/cmm 08/07/2021 5:23 [facility] Type of Differential: Auto 08/07/2021 5:23 [facility] Blood VENOUS BLOOD / Unknown Venipuncture / Unknown 08/07/2021 5:12 EDT 08/07/2021 5:16 EDT Yomi Arreola MD PACKAGES & DNA PROBE ORDERABLES [facility] [address] [place] [address] * (ABNORMAL) COMPREHENSIVE METABOLIC PANEL (CMP) (08/07/2021 5:12 EDT) Sodium 136 136 - 145 mmol/L 08/07/2021 5:45 T [facility] Potassium 4.7 3.5 - 5.0 mmol/L 08/07/2021 5:45 [facility] Chloride 106 96 - 110 mmol/L 08/07/2021 5:45 [facility] CO2 Total 21(L) 22 - 32 mmol/L 08/07/2021 5:45 [facility] Glucose 115(H) 70 - 100 mg/dL 08/07/2021 5:45 [facility] BUN 54(H) 10 - 26 mg/dL 08/07/2021 5:45 [facility] Creatinine 2.04(H) 0.66 - 1.25 mg/dL 08/07/2021 5:45 [facility] eGFR 33(L) >60 mL/min/1.7 3m2 08/07/2021 5:45 [facility] Total Protein 5.9(L) 6.3 - 8.2 g/dL 08/07/2021 5:45 [facility] Albumin 3.5 3.4 - 4.9 g/dL 08/07/2021 5:45 [facility] Alkaline Phosphatase 60 38 - 126 U/L 08/07/2021 5:45 [facility] AST 19 15 - 46 U/L 08/07/2021 5:45 [facility] ALT 14 <50 U/L 08/07/2021 5:45 [facility] Bilirubin, Total <0.5 <1.4 mg/dL 08/08/19 5:45 [place] [facility] [facility] Calcium 9.1 8.5 - 10.5 mg/dL 08/07/2021 5:45 [facility] Albumin/Globulin Ratio 1.5 1.0 - 2.5 08/07/2021 5:45 [facility] Anion Gap 9 5 - 14 08/07/2021 5:45 [facility] Blood VENOUS BLOOD / Unknown Venipuncture / Unknown 08/07/2021 5:12 EDT 08/07/2021 5:16 EDT Yomi Arreola MD CHEMISTRY & BLOOD GA S ORDERABLES [facility] [address] [place] [address] * (ABNORMAL) COMPREHENSIVE METABOLIC PANEL (CMP) (08/06/2021 7:44 EDT) Sodium 138 136 - 145 mmol/L 08/06/2021 8:19 [facility] Potassium 4.8 3.5 - 5.0 mmol/L 08/06/2021 8:19 [facility] Chloride 104 96 - 110 mmol/L 08/06/2021 8:19 [facility] CO2 Total 21(L) 22 - 32 mmol/L 08/06/2021 8:19 [facility] Glucose 102(H) 70 - 100 mg/dL 08/06/2021 8:19 [facility] BUN 55(H) 10 - 26 mg/dL 08/06/2021 8:19 [facility] Creatinine 2.17(H) 0.66 - 1.25 mg/dL 08/06/2021 8:19 [facility] eGFR 30(L) >60 mL/min/1.7 3m2 08/06/2021 8:19 [facility] Total Protein 6.8 6.3 - 8.2 g/dL 08/06/2021 8:19 [facility] Albumin 4.1 3.4 - 4.9 g/dL 08/06/2021 8:19 [facility] Alkaline Phosphatase 70 38 - 126 U/L 08/06/2021 8:19 [facility] AST 21 15 - 46 U/L 08/06/2021 8:19 [facility] ALT 15 <50 U/L 08/06/2021 8:19 [facility] Bilirubin, Total <0.5 <1.4 mg/dL 08/07/19 8:19 [facility] Calcium 9.6 8.5 - 10.5 mg/dL 08/06/2021 8:19 [facility] Albumin/Globulin Ratio 1.5 1.0 - 2.5 08/06/2021 8:19 EDT [facility] Anion Gap 13 5 - 14 08/06/2021 8:19 EDT [facility] Blood VENOUS BLOOD / Unknown Venipuncture / Unknown 08/06/2021 7:44 EDT 08/06/2021 7:52 EDT Yomi Arreola MD CHEMISTRY & BLOOD GA S ORDERABLES Performing Organization Address City/[facility]/ZIP Co de Phone Number [facility] [address] [place] [address] * POCT GLUCOSE, INTERFACED (08/06/2021 6:32 EDT) Glucose, POC 98 70 - 100 mg/dL 08/06/2021 7:33 EDT [facility] HN LAB POC COMMENT (GLUCOSE) Test Performed by Nursing Services 08/06/2021 7:33 EDT [facility] Blood CAPILLARY BLOOD / Unknown 08/06/2021 6:32 EDT 08/06/2021 7:33 EDT Sanjuana Gaona LEGAL INSTRUMENTS EXAMINER POINT OF CARE TEST O RDERABLES Performing Organization Address [facility] Co de Phone Number [facility] [address] [place] [address] * PHOSPHORUS (08/06/2021 6:09 EDT) Pathologist Kavitha Phosphorus 08/07/2021 9:40 EDT [facility] Comment: Question specimen contaminated. This is a corrected result. Previous result was 4.4 mg/dL on 08/06/2021 at 0704 EDT Blood VENOUS BLOOD / Unknown Venipuncture / Unknown 08/06/2021 6:09 EDT 08/06/2021 6:34 EDT Yomi Arreola MD CHEMISTRY & BLOOD GA S ORDERABLES Performing Organization Address City/[facility] Co de Phone Number [facility] [address] [place] [address] * MAGNESIUM (08/06/2021 6:09 EDT) Magnesium 08/07/2021 9:40 T [facility] Comment: Question specimen contaminated. This is a corrected result. Previous result was 2.4 mg/dL on 08/06/2021 at 0704 EDT Blood VENOUS BLOOD / Unknown Venipuncture / Unknown 08/06/2021 6:09 EDT 08/06/2021 6:34 EDT Yomi Arreola MD CHEMISTRY & BLOOD GA S ORDERABLES [facility] [address] [place] [address] * (ABNORMAL) COMPLETE BLOOD COUNT AND DIFFERENTIAL (08/06/2021 6:09 EDT) [facility] WBC 6.86 4.00 - 10.40 K/cmm 08/06/2021 6:34 [facility] RBC 2.63(L) 4.36 - 5.78 M/cmm 08/06/2021 6:34 [facility] Hemoglobin 8.4(L) 13.8 - 17.3 gm/dL 08/06/2021 6:34 [facility] HCT 25.2(L) 39.5 - 50.2 % 08/06/2021 6:34 [facility] MCV 96(H) 81 - 95 fl 08/06/2021 6:34 [facility] MCH 31.9 27.6 - 33.0 pg 08/06/2021 6:34 [facility] MCHC 33.3 32.8 - 36.4 gm/dL 08/06/2021 6:34 [facility] RDW-CV 12.9 <14.2 % 08/06/2021 6:34 [facility] RDW-SD 45.7 <46.0 fl 08/06/2021 6:34 [facility] PLT 200 141 - 377 K/cmm 08/06/2021 6:34 [facility] MPV 11.8 9.5 - 12.7 fl 08/06/2021 6:34 [facility] % Neutrophils 61.9 % 08/06/2021 6:34 [facility] % Lymphocytes 14.0 % 08/06/2021 6:34 [facility] % Monocytes 8.9 % 08/06/2021 6:34 [facility] % Eosinophils 13.7 % 08/06/2021 6:34 [facility] % Basophils 1.2 % 08/06/2021 6:34 [facility] % Immature Grans 0.3 % 08/07/19 6:34 [facility] Absolute Neutrophils 4.25 2.20 - 8.85 K/cmm 08/06/2021 6:34 [facility] Absolute Lymphocytes 0.96(L) 1.09 - 3.30 K/cmm 08/06/2021 6:34 [facility] Absolute Monocytes 0.61 0.10 - 0.80 K/cmm 08/06/2021 6:34 [facility] Absolute Eosinophils 0.94(H) 0.03 - 0.61 K/cmm 08/06/2021 6:34 [facility] ABS Basophils 0.08 0.01 - 0.11 K/cmm 08/06/2021 6:34 [facility] Absolute Immature Grans 0.02 0.00 - 0.06 K/cmm 08/06/2021 6:34 [facility] Type of Differential: Auto 08/06/2021 6:34 [facility] Blood VENOUS BLOOD / Unknown Venipuncture / Unknown 08/06/2021 6:09 EDT 08/06/2021 6:17 EDT Yomi Arreola MD PACKAGES & DNA PROBE ORDERABLES [facility] [address] [place] [address] * COMPREHENSIVE METABOLIC PANEL (CMP) (08/06/2021 6:09 EDT) Sodium 08/07/2021 9:40 T [facility] Comment: Question specimen contaminated. This is a corrected result. Previous result was 134 mmol/L on 08/06/2021 at 0718 EDT Potassium 08/07/2021 9:40 [facility] Comment: Question specimen contaminated. This is a corrected result. Previous result was 5.8 mmol/L on 08/06/2021 at 0718 EDT Chloride 08/07/2021 9:40 T [facility] Comment: Question specimen contaminated. This is a corrected result. Previous result was 102 mmol/L on 08/06/2021 at 0718 EDT CO2 Total 08/07/2021 9:40 [facility] Comment: Question specimen contaminated. This is a corrected result. Previous result was 20 mmol/L on 08/06/2021 at 0718 EDT Glucose 08/07/2021 9:40 [facility] Comment: Question specimen contaminated. This is a corrected result. Previous result was 527 mg/dL on 08/06/2021 at 0718 EDT BUN 08/07/2021 9:40 [facility] Comment: Question specimen contaminated. This is a corrected result. Previous result was 51 mg/dL on 08/06/2021 at 0718 EDT Creatinine 08/07/2021 9:40 [facility] Comment: Question specimen contaminated. This is a corrected result. Previous result was 2.05 mg/dL on 08/06/2021 at 0718 EDT eGFR 08/07/2021 9:40 [facility] Comment: Question specimen contaminated. This is a corrected result. Previous result was 33 mL/min/1.73m2 on 08/06/2021 at 0718 EDT Total Protein 08/07/2021 9:40 [facility] Comment: Question specimen contaminated. This is a corrected result. Previous result was 5.4 g/dL on 08/06/2021 at 0718 EDT Albumin 08/07/2021 9:40 [facility] Comment: Question specimen contaminated. This is a corrected result. Previous result was 3.3 g/dL on 08/06/2021 at 0718 EDT Alkaline Phosphatase 08/07/2021 9:40 EDT [facility] Comment: Question specimen contaminated. This is a corrected result. Previous result was 46 U/L on 08/06/2021 at 0718 EDT AST 08/07/2021 9:40 EDT [facility] Comment: Question specimen contaminated. This is a corrected result. Previous result was 20 U/L on 08/06/2021 at 0718 EDT ALT 08/07/2021 9:40 EDT [facility] Comment: Question specimen contaminated. This is a corrected result. Previous result was 13 U/L on 08/06/2021 at 0718 EDT Bilirubin, Total 08/08/19 9:40 EDT [facility] Comment: Question specimen contaminated. This is a corrected result. Previous result was <0.5 mg/dL on 08/06/2021 at 0718 EDT Calcium 08/07/2021 9:40 EDT [facility] Comment: Question specimen contaminated. This is a corrected result. Previous result was 9.6 mg/dL on 08/06/2021 at 0718 EDT Albumin/Globulin Ratio 08/07/2021 9:40 T [facility] Comment: Question specimen contaminated. This is a corrected result. Previous result was 1.6 on 08/06/2021 at 0718 EDT Anion Gap 08/07/2021 9:40 EDT [facility] Comment:This is a corrected result. Previous result was 12 on 08/06/2021 at 0718 EDT Blood VENOUS BLOOD / Unknown Venipuncture / Unknown 08/06/2021 6:09 EDT 08/06/2021 6:34 EDT Yomi Arreola MD CHEMISTRY & BLOOD GA S ORDERABLES [facility] [address] [place] [address] * POCT GLUCOSE, INTERFACED (08/05/2021 14:09 EST) [facility] Glucose, POC 95 70 - 100 mg/dL 08/05/2021 14:11 EST [facility] HN LAB POC COMMENT (GLUCOSE) Test Performed by Nursing Services 08/05/2021 14:11 [facility] Blood CAPILLARY BLOOD / Unknown 08/05/2021 14:09 EST 08/05/2021 14:11 EST Sanjuana Gaona LEGAL INSTRUMENTS EXAMINER POINT OF CARE TEST O RDERABLES [facility] [address] [place] [address] * PHOSPHORUS (08/05/2021 5:31 EST) [facility] Phosphorus 3.8 2.5 - 4.5 mg/dL 08/05/2021 6:18 EST [facility] Blood VENOUS BLOOD / Unknown Venipuncture / Unknown 08/05/2021 5:31 EST 08/05/2021 5:39 EST Yomi Arreola MD CHEMISTRY & BLOOD GA S ORDERABLES Performing Organization Address [facility] Co de Phone Number [facility] [address] [place] [address] * MAGNESIUM (08/05/2021 5:31 EST) [facility] Magnesium 2.1 1.7 - 2.8 mg/dL 08/05/2021 6:18 EST [facility] Blood VENOUS BLOOD / Unknown Venipuncture / Unknown 08/05/2021 5:31 EST 08/05/2021 5:39 EST Yomi Arreola MD CHEMISTRY & BLOOD GA S ORDERABLES Performing Organization Address [facility] Co de Phone Number [facility] [address] [place] [address] * (ABNORMAL) COMPREHENSIVE METABOLIC PANEL (CMP) (08/05/2021 5:31 EST) Pathologist [facility] Sodium 138 136 - 145 mmol/L 08/05/2021 6:18 [facility] Potassium 4.2 3.5 - 5.0 mmol/L 08/05/2021 6:18 [facility] Chloride 98 96 - 110 mmol/L 08/05/2021 6:18 [facility] CO2 Total 28 22 - 32 mmol/L 08/05/2021 6:18 [facility] Glucose 109(H) 70 - 100 mg/dL 08/05/2021 6:18 [facility] BUN 51(H) 10 - 26 mg/dL 08/05/2021 6:18 [facility] Creatinine 2.24(H) 0.66 - 1.25 mg/dL 08/05/2021 6:18 [facility] eGFR 29(L) >60 mL/min/1.7 3m2 08/05/2021 6:18 [facility] Total Protein 5.9(L) 6.3 - 8.2 g/dL 08/05/2021 6:18 [facility] Albumin 3.5 3.4 - 4.9 g/dL 08/05/2021 6:18 [facility] Alkaline Phosphatase 65 38 - 126 U/L 08/05/2021 6:18 [facility] AST 18 15 - 46 U/L 08/05/2021 6:18 [facility] ALT 14 <50 U/L 08/05/2021 6:18 [facility] Bilirubin, Total <0.5 <1.4 mg/dL 08/06/19 6:18 [facility] Calcium 9.2 8.5 - 10.5 mg/dL 08/05/2021 6:18 [facility] Albumin/Globulin Ratio 1.5 1.0 - 2.5 08/05/2021 6:18 [facility] Anion Gap 12 5 - 14 08/05/2021 6:18 [facility] Blood VENOUS BLOOD / Unknown Venipuncture / Unknown 08/05/2021 5:31 EST 08/05/2021 5:39 EST Yomi Arreola MD CHEMISTRY & BLOOD GA S ORDERABLES [facility] [address] [place] [address] * (ABNORMAL) COMPLETE BLOOD COUNT AND DIFFERENTIAL (08/05/2021 5:30 EST) WBC 5.96 4.00 - 10.40 K/cmm 08/05/2021 5:50 [facility] RBC 2.78(L) 4.36 - 5.78 M/cmm 08/05/2021 5:50 [facility] Hemoglobin 8.4(L) 13.8 - 17.3 gm/dL 08/05/2021 5:50 [facility] HCT 26.2(L) 39.5 - 50.2 % 08/05/2021 5:50 [facility] MCV 94 81 - 95 fl 08/05/2021 5:50 [facility] MCH 30.2 27.6 - 33.0 pg 08/05/2021 5:50 [facility] MCHC 32.1(L) 32.8 - 36.4 gm/dL 08/05/2021 5:50 [facility] RDW-CV 13.0 <14.2 % 08/05/2021 5:50 [facility] RDW-SD 45.1 <46.0 fl 08/05/2021 5:50 [facility] PLT 199 141 - 377 K/cmm 08/05/2021 5:50 [facility] MPV 11.4 9.5 - 12.7 fl 08/05/2021 5:50 [facility] % Neutrophils 54.9 % 08/05/2021 5:50 [facility] % Lymphocytes 18.8 % 08/05/2021 5:50 [facility] % Monocytes 11.6 % 08/05/2021 5:50 [facility] % Eosinophils 13.1 % 08/05/2021 5:50 [facility] % Basophils 1.3 % 08/05/2021 5:50 [facility] % Immature Grans 0.3 % 08/06/19 5:50 [facility] Absolute Neutrophils 3.27 2.20 - 8.85 K/cmm 08/05/2021 5:50 [facility] Absolute Lymphocytes 1.12 1.09 - 3.30 K/cmm 08/05/2021 5:50 [facility] Absolute Monocytes 0.69 0.10 - 0.80 K/cmm 08/05/2021 5:50 [facility] Absolute Eosinophils 0.78(H) 0.03 - 0.61 K/cmm 08/05/2021 5:50 [facility] ABS Basophils 0.08 0.01 - 0.11 K/cmm 08/05/2021 5:50 [facility] Absolute Immature Grans 0.02 0.00 - 0.06 K/cmm 08/05/2021 5:50 [facility] Type of Differential: Auto 08/05/2021 5:50 [facility] Blood VENOUS BLOOD / Unknown Venipuncture / Unknown 08/05/2021 5:30 EST 08/05/2021 5:39 EST Yomi Arreola MD PACKAGES & DNA PROBE ORDERABLES [facility] [address] [place] [address] * POCT GLUCOSE, INTERFACED (08/04/2021 5:06 EST) Glucose, POC 96 70 - 100 mg/dL 08/04/2021 5:11 [facility] HN LAB POC COMMENT (GLUCOSE) Test Performed by Nursing Services 08/04/2021 5:11 [facility] Blood CAPILLARY BLOOD / Unknown 08/04/2021 5:06 EST 08/04/2021 5:11 EST Sanjuana Gaona LEGAL INSTRUMENTS EXAMINER POINT OF CARE TEST O RDERABLES [facility] [address] [place] [address] * PHOSPHORUS (08/04/2021 4:57 EST) [facility] Phosphorus 3.9 2.5 - 4.5 mg/dL 08/04/2021 5:44 [facility] Blood VENOUS BLOOD / Unknown Venipuncture / Unknown 08/04/2021 4:57 EST 08/04/2021 5:13 EST Yomi Arreola MD CHEMISTRY & BLOOD GA S ORDERABLES Performing Organization Address [facility] Co de Phone Number [facility] [address] [place] [address] * MAGNESIUM (08/04/2021 4:57 EST) [facility] Magnesium 2.4 1.7 - 2.8 mg/dL 08/04/2021 5:44 [facility] Blood VENOUS BLOOD / Unknown Venipuncture / Unknown 08/04/2021 4:57 EST 08/04/2021 5:13 EST Yomi Arreola MD CHEMISTRY & BLOOD GA S ORDERABLES Performing Organization Address [facility] Co de Phone Number [facility] [address] [place] [address] * (ABNORMAL) COMPLETE BLOOD COUNT AND DIFFERENTIAL (08/04/2021 4:57 EST) [facility] WBC 6.83 4.00 - 10.40 K/cmm 08/04/2021 5:19 [facility] RBC 3.17(L) 4.36 - 5.78 M/cmm 08/04/2021 5:19 [facility] Hemoglobin 9.6(L) 13.8 - 17.3 gm/dL 08/04/2021 5:19 [facility] HCT 29.4(L) 39.5 - 50.2 % 08/04/2021 5:19 [facility] MCV 93 81 - 95 fl 08/04/2021 5:19 [facility] MCH 30.3 27.6 - 33.0 pg 08/04/2021 5:19 [facility] MCHC 32.7(L) 32.8 - 36.4 gm/dL 08/04/2021 5:19 [facility] RDW-CV 13.1 <14.2 % 08/04/2021 5:19 [facility] RDW-SD 45.1 <46.0 fl 08/04/2021 5:19 [facility] PLT 236 141 - 377 K/cmm 08/04/2021 5:19 [facility] MPV 11.3 9.5 - 12.7 fl 08/04/2021 5:19 [facility] % Neutrophils 60.8 % 08/04/2021 5:19 [facility] % Lymphocytes 17.4 % 08/04/2021 5:19 [facility] % Monocytes 12.0 % 08/04/2021 5:19 [facility] % Eosinophils 8.8 % 08/04/2021 5:19 [facility] % Basophils 0.7 % 08/04/2021 5:19 [facility] % Immature Grans 0.3 % 08/05/19 5:19 [facility] Absolute Neutrophils 4.15 2.20 - 8.85 K/cmm 08/04/2021 5:19 [facility] Absolute Lymphocytes 1.19 1.09 - 3.30 K/cmm 08/04/2021 5:19 [facility] Absolute Monocytes 0.82(H) 0.10 - 0.80 K/cmm 08/04/2021 5:19 [facility] Absolute Eosinophils 0.60 0.03 - 0.61 K/cmm 08/04/2021 5:19 [facility] ABS Basophils 0.05 0.01 - 0.11 K/cmm 08/04/2021 5:19 [facility] Absolute Immature Grans 0.02 0.00 - 0.06 K/cmm 08/04/2021 5:19 [facility] Type of Differential: Auto 08/04/2021 5:19 [facility] Blood VENOUS BLOOD / Unknown Venipuncture / Unknown 08/04/2021 4:57 EST 08/04/2021 5:13 EST Yomi Arreola MD PACKAGES & DNA PROBE ORDERABLES [facility] [address] [place] [address] * (ABNORMAL) COMPREHENSIVE METABOLIC PANEL (CMP) (08/04/2021 4:57 EST) Sodium 139 136 - 145 mmol/L 08/04/2021 5:44 [facility] Potassium 4.6 3.5 - 5.0 mmol/L 08/04/2021 5:44 [facility] Chloride 96 96 - 110 mmol/L 08/04/2021 5:44 [facility] CO2 Total 33(H) 22 - 32 mmol/L 08/04/2021 5:44 [facility] Glucose 95 70 - 100 mg/dL 08/04/2021 5:44 [facility] BUN 53(H) 10 - 26 mg/dL 08/04/2021 5:44 [facility] Creatinine 2.35(H) 0.66 - 1.25 mg/dL 08/04/2021 5:44 [facility] eGFR 28(L) >60 mL/min/1.7 3m2 08/04/2021 5:44 [facility] Total Protein 6.6 6.3 - 8.2 g/dL 08/04/2021 5:44 [facility] Albumin 4.1 3.4 - 4.9 g/dL 08/04/2021 5:44 [facility] Alkaline Phosphatase 78 38 - 126 U/L 08/04/2021 5:44 [facility] AST 19 15 - 46 U/L 08/04/2021 5:44 [facility] ALT 16 <50 U/L 08/04/2021 5:44 [facility] Bilirubin, Total <0.5 <1.4 mg/dL 08/05/19 5:44 [facility] Calcium 9.3 8.5 - 10.5 mg/dL 08/04/2021 5:44 [facility] Albumin/Globulin Ratio 1.6 1.0 - 2.5 08/04/2021 5:44 [facility] Anion Gap 10 5 - 14 08/04/2021 5:44 EST [facility] Blood VENOUS BLOOD / Unknown Venipuncture / Unknown 08/04/2021 4:57 EST 08/04/2021 5:13 EST Yomi Arreola MD CHEMISTRY & BLOOD GA S ORDERABLES Performing Organization Address City/[facility] Co de Phone Number [facility] [address] [place] [address] * POCT GLUCOSE, INTERFACED (08/03/2021 5:44 EST) Glucose, POC 92 70 - 100 mg/dL 08/03/2021 5:45 EST [facility] HN LAB POC COMMENT (GLUCOSE) Test Performed by Nursing Services 08/03/2021 5:45 EST [facility] LABORATORY SERVICES Blood CAPILLARY BLOOD / Unknown 08/03/2021 5:44 EST 08/03/2021 5:45 EST Sanjuana Gaona LEGAL INSTRUMENTS EXAMINER POINT OF CARE TEST O RDERABLES [facility] LABORATORY SERVICES [address] [place] [address] * PHOSPHORUS (08/03/2021 5:38 EST) Phosphorus 4.2 2.5 - 4.5 mg/dL 08/03/2021 6:47 EST [facility] LABORATORY SERVICES Blood VENOUS BLOOD / Unknown Venipuncture / Unknown 08/03/2021 5:38 EST 08/03/2021 6:03 EST Yomi Arreola MD CHEMISTRY & BLOOD GA S ORDERABLES [facility] LABORATORY SERVICES [address] [place] [address] * MAGNESIUM (08/03/2021 5:38 EST) Pathologist [facility] Magnesium 2.4 1.7 - 2.8 mg/dL 08/03/2021 6:47 [facility] LABORATORY SERVICES Blood VENOUS BLOOD / Unknown Venipuncture / Unknown 08/03/2021 5:38 EST 08/03/2021 6:03 EST Yomi Arreola MD CHEMISTRY & BLOOD GA S ORDERABLES Performing Organization Address City/[facility] Co de Phone Number [facility] LABORATORY SERVICES [address] [place] [address] * (ABNORMAL) COMPLETE BLOOD COUNT AND DIFFERENTIAL (08/03/2021 5:38 EST) [facility] WBC 5.81 4.00 - 10.40 K/cmm 08/03/2021 6:07 [facility] LABORATORY SERVICES RBC 3.16(L) 4.36 - 5.78 M/cmm 08/03/2021 6:07 [facility] LABORATORY SERVICES Hemoglobin 9.7(L) 13.8 - 17.3 gm/dL 08/03/2021 6:07 [facility] LABORATORY SERVICES HCT 28.7(L) 39.5 - 50.2 % 08/03/2021 6:07 [facility] LABORATORY SERVICES MCV 91 81 - 95 fl 08/03/2021 6:07 [facility] LABORATORY SERVICES MCH 30.7 27.6 - 33.0 pg 08/03/2021 6:07 [facility] LABORATORY SERVICES MCHC 33.8 32.8 - 36.4 gm/dL 08/03/2021 6:07 [facility] LABORATORY SERVICES RDW-CV 13.1 <14.2 % 08/03/2021 6:07 [facility] LABORATORY SERVICES RDW-SD 43.4 <46.0 fl 08/03/2021 6:07 [facility] LABORATORY SERVICES PLT 223 141 - 377 K/cmm 08/03/2021 6:07 [facility] LABORATORY SERVICES MPV 11.6 9.5 - 12.7 fl 08/03/2021 6:07 [facility] LABORATORY SERVICES % Neutrophils 56.0 % 08/03/2021 6:07 [facility] LABORATORY SERVICES % Lymphocytes 18.6 % 08/03/2021 6:07 [facility] LABORATORY SERVICES % Monocytes 14.1 % 08/03/2021 6:07 [facility] LABORATORY SERVICES % Eosinophils 10.0 % 08/03/2021 6:07 [facility]ATORY SERVICES % Basophils 1.0 % 08/03/2021 6:07 [facility] LABORATORY SERVICES % Immature Grans 0.3 % 08/04/19 6:07 [facility] LABORATORY SERVICES Absolute Neutrophils 3.25 2.20 - 8.85 K/cmm 08/03/2021 6:07 [facility] LABORATORY SERVICES Absolute Lymphocytes 1.08(L) 1.09 - 3.30 K/cmm 08/03/2021 6:07 [facility] LABORATORY SERVICES Absolute Monocytes 0.82(H) 0.10 - 0.80 K/cmm 08/03/2021 6:07 [facility] LABORATORY SERVICES Absolute Eosinophils 0.58 0.03 - 0.61 K/cmm 08/03/2021 6:07 [facility] LABORATORY SERVICES ABS Basophils 0.06 0.01 - 0.11 K/cmm 08/03/2021 6:07 [facility] LABORATORY SERVICES Absolute Immature Grans 0.02 0.00 - 0.06 K/cmm 08/03/2021 6:07 [facility] LABORATORY SERVICES Type of Differential: Auto 08/03/2021 6:07 [facility] LABORATORY SERVICES Blood VENOUS BLOOD / Unknown Venipuncture / Unknown 08/03/2021 5:38 EST 08/03/2021 6:00 EST Yomi Arreola MD PACKAGES & DNA PROBE ORDERABLES [facility] LABORATORY SERVICES [address] [place] [address] * (ABNORMAL) COMPREHENSIVE METABOLIC PANEL (CMP) (08/03/2021 5:38 EST) Sodium 137 136 - 145 mmol/L 08/03/2021 6:47 [facility] LABORATORY SERVICES Potassium 4.8 3.5 - 5.0 mmol/L 08/03/2021 6:47 [facility] LABORATORY SERVICES Chloride 98 96 - 110 mmol/L 08/03/2021 6:47 [facility]ORATORY SERVICES CO2 Total 27 22 - 32 mmol/L 08/03/2021 6:47 [facility]ATORY SERVICES Glucose 99 70 - 100 mg/dL 08/03/2021 6:47 [facility] LABORATORY SERVICES BUN 49(H) 10 - 26 mg/dL 08/03/2021 6:47 [facility] LABORATORY SERVICES Creatinine 2.43(H) 0.66 - 1.25 mg/dL 08/03/2021 6:47 [facility] LABORATORY SERVICES eGFR 27(L) >60 mL/min/1.7 3m2 08/03/2021 6:47 [facility] LABORATORY SERVICES Total Protein 6.5 6.3 - 8.2 g/dL 08/03/2021 6:47 [facility] LABORATORY SERVICES Albumin 4.0 3.4 - 4.9 g/dL 08/03/2021 6:47 [facility] LABORATORY SERVICES Alkaline Phosphatase 75 38 - 126 U/L 08/03/2021 6:47 [facility] LABORATORY SERVICES AST 18 15 - 46 U/L 08/03/2021 6:47 [facility] LABORATORY SERVICES ALT 18 <50 U/L 08/03/2021 6:47 [facility] LABORATORY SERVICES Bilirubin, Total <0.5 <1.4 mg/dL 08/04/19 6:47 [facility] LABORATORY SERVICES Calcium 9.1 8.5 - 10.5 mg/dL 08/03/2021 6:47 [facility] LABORATORY SERVICES Albumin/Globulin Ratio 1.6 1.0 - 2.5 08/03/2021 6:47 [facility] LABORATORY SERVICES Anion Gap 12 5 - 14 08/03/2021 6:47 [facility] LABORATORY SERVICES Blood VENOUS BLOOD / Unknown Venipuncture / Unknown 08/03/2021 5:38 EST 08/03/2021 6:03 EST Yomi Arreola MD CHEMISTRY & BLOOD GA S ORDERABLES Performing Organization Address City/[facility] Co de Phone Number [facility] LABORATORY SERVICES [address] [place] [address] * (ABNORMAL) POCT GLUCOSE, INTERFACED (08/02/2021 4:46 EST) Glucose, POC 115(H) 70 - 100 mg/dL 08/02/2021 4:46 EST [facility] LABORATORY SERVICES HN LAB POC COMMENT (GLUCOSE) Test Performed by Nursing Services 08/02/2021 4:46 EST [facility] LABORATORY SERVICES Blood CAPILLARY BLOOD / Unknown 08/02/2021 4:46 EST 08/02/2021 4:46 EST Sanjuana Gaona LEGAL INSTRUMENTS EXAMINER POINT OF CARE TEST O RDERABLES Performing Organization Address City/[facility]/ZIP Co de Phone Number [facility] LABORATORY SERVICES [address] [place] [address] * PHOSPHORUS (08/02/2021 4:39 EST) Phosphorus 4.2 2.5 - 4.5 mg/dL 08/02/2021 5:13 EST [facility] LABORATORY SERVICES Blood VENOUS BLOOD / Unknown Venipuncture / Unknown 08/02/2021 4:39 EST 08/02/2021 4:45 EST Yomi Arreola MD CHEMISTRY & BLOOD GA S ORDERABLES Performing Organization Address City/[facility] Co de Phone Number [facility] LABORATORY SERVICES [address] [place] [address] * MAGNESIUM (08/02/2021 4:39 EST) Magnesium 2.2 1.7 - 2.8 mg/dL 08/02/2021 5:13 EST [facility] LABORATORY SERVICES Blood VENOUS BLOOD / Unknown Venipuncture / Unknown 08/02/2021 4:39 EST 08/02/2021 4:45 EST Yomi Arreola MD CHEMISTRY & BLOOD GA S ORDERABLES [facility] LABORATORY SERVICES [address] [place] [address] * (ABNORMAL) COMPLETE BLOOD COUNT AND DIFFERENTIAL (08/02/2021 4:39 EST) WBC 4.40 4.00 - 10.40 K/cmm 08/02/2021 4:53 [facility] LABORATORY SERVICES RBC 2.98(L) 4.36 - 5.78 M/cmm 08/02/2021 4:53 [facility] LABORATORY SERVICES Hemoglobin 9.3(L) 13.8 - 17.3 gm/dL 08/02/2021 4:53 [facility] LABORATORY SERVICES HCT 27.1(L) 39.5 - 50.2 % 08/02/2021 4:53 [facility] LABORATORY SERVICES MCV 91 81 - 95 fl 08/02/2021 4:53 [facility] LABORATORY SERVICES MCH 31.2 27.6 - 33.0 pg 08/02/2021 4:53 [facility] LABORATORY SERVICES MCHC 34.3 32.8 - 36.4 gm/dL 08/02/2021 4:53 [facility] LABORATORY SERVICES RDW-CV 13.2 <14.2 % 08/02/2021 4:53 [facility] LABORATORY SERVICES RDW-SD 43.6 <46.0 fl 08/02/2021 4:53 [facility] LABORATORY SERVICES PLT 203 141 - 377 K/cmm 08/02/2021 4:53 [facility] LABORATORY SERVICES MPV 11.3 9.5 - 12.7 fl 08/02/2021 4:53 [facility] LABORATORY SERVICES % Neutrophils 51.6 % 08/02/2021 4:53 [facility]ATORY SERVICES % Lymphocytes 20.0 % 08/02/2021 4:53 [facility]ORY [facility] % Monocytes 12.5 % 08/02/2021 4:53 [facility]ORY [facility] % Eosinophils 14.3 % 08/02/2021 4:53 [facility] % Basophils 0.9 % 08/02/2021 4:53 [facility]ATORY SERVICES % Immature Grans 0.7 % 08/03/19 4:53 [facility] LABORATORY SERVICES Absolute Neutrophils 2.27 2.20 - 8.85 K/cmm 08/02/2021 4:53 [facility] LABORATORY SERVICES Absolute Lymphocytes 0.88(L) 1.09 - 3.30 K/cmm 08/02/2021 4:53 [facility] LABORATORY SERVICES Absolute Monocytes 0.55 0.10 - 0.80 K/cmm 08/02/2021 4:53 [facility] LABORATORY SERVICES Absolute Eosinophils 0.63(H) 0.03 - 0.61 K/cmm 08/02/2021 4:53 [facility] LABORATORY SERVICES ABS Basophils 0.04 0.01 - 0.11 K/cmm 08/02/2021 4:53 [facility] LABORATORY SERVICES Absolute Immature Grans 0.03 0.00 - 0.06 K/cmm 08/02/2021 4:53 [facility] LABORATORY SERVICES Type of Differential: Auto 08/02/2021 4:53 [facility] LABORATORY SERVICES Blood VENOUS BLOOD / Unknown Venipuncture / Unknown 08/02/2021 4:39 EST 08/02/2021 4:45 EST Yomi Arreola MD PACKAGES & DNA PROBE ORDERABLES Performing Organization Address City/State/[facility] Co de Phone Number [facility] LABORATORY SERVICES [address] [place] [address] * (ABNORMAL) COMPREHENSIVE METABOLIC PANEL (CMP) (08/02/2021 4:39 EST) Sodium 134(L) 136 - 145 mmol/L 08/02/2021 5:13 [facility] LABORATORY SERVICES Potassium 4.1 3.5 - 5.0 mmol/L 08/02/2021 5:13 [facility] LABORATORY SERVICES Chloride 100 96 - 110 mmol/L 08/02/2021 5:13 [facility]ORATORY [facility] CO2 Total 23 22 - 32 mmol/L 08/02/2021 5:13 [facility]ATORY [facility] Glucose 115(H) 70 - 100 mg/dL 08/02/2021 5:13 [facility]ATORY [facility] BUN 43(H) 10 - 26 mg/dL 08/02/2021 5:13 [facility]ORY [facility] Creatinine 2.10(H) 0.66 - 1.25 mg/dL 08/02/2021 5:13 [facility] LABORATORY SERVICES eGFR 32(L) >60 mL/min/1.7 3m2 08/02/2021 5:13 [facility] LABORATORY SERVICES Total Protein 6.1(L) 6.3 - 8.2 g/dL 08/02/2021 5:13 [facility]ATORY [facility] Albumin 3.5 3.4 - 4.9 g/dL 08/02/2021 5:13 [facility] LAB[facility]ATORY SERVICES Alkaline Phosphatase 75 38 - 126 U/L 08/02/2021 5:13 [facility]ATORY [facility] AST 21 15 - 46 U/L 08/02/2021 5:13 [facility]ATORY [facility] ALT 20 <50 U/L 08/02/2021 5:13 [facility]ORY [facility] Bilirubin, Total <0.5 <1.4 mg/dL 08/03/19 5:13 [facility]ORY [facility] Calcium 8.9 8.5 - 10.5 mg/dL 08/02/2021 5:13 [facility] Albumin/Globulin Ratio 1.3 1.0 - 2.5 08/02/2021 5:13 [facility]ATORY [facility] Anion Gap 11 5 - 14 08/02/2021 5:13 [facility]ATORY [facility] Blood VENOUS BLOOD / Unknown Venipuncture / Unknown 08/02/2021 4:39 EST 08/02/2021 4:45 EST Yomi Arreola MD CHEMISTRY & BLOOD GA S ORDERABLES [facility] LABORATORY SERVICES [address] [place] [address] * POCT GLUCOSE, INTERFACED (08/01/2021 22:07 EST) Glucose, POC 87 70 - 100 mg/dL 08/01/2021 22:08 EST [facility] LABORATORY SERVICES HN LAB POC COMMENT (GLUCOSE) Test Performed by Nursing Services 08/01/2021 22:08 EST [facility] LABORATORY SERVICES Blood CAPILLARY BLOOD / Unknown 08/01/2021 22:07 EST 08/01/2021 22:08 EST Sanjuana Gaona LEGAL INSTRUMENTS EXAMINER POINT OF CARE TEST O RDERABLES Performing Organization Address [facility]/ZIP Co de Phone Number [facility] LABORATORY SERVICES [address] [place] [address] * POCT GLUCOSE, INTERFACED (08/01/2021 14:46 EST) Glucose, POC 83 70 - 100 mg/dL 08/01/2021 14:47 EST [facility] LABORATORY SERVICES HN LAB POC COMMENT (GLUCOSE) Test Performed by Nursing Services 08/01/2021 14:47 EST [facility]ORATORY SERVICES Blood CAPILLARY BLOOD / Unknown 08/01/2021 14:46 EST 08/01/2021 14:47 EST Sanjuana Gaona LEGAL INSTRUMENTS EXAMINER POINT OF CARE TEST O RDERABLES Performing Organization Address [facility] de Phone Number [facility] LABORATORY SERVICES [address] [place] [address] * [place] UGI WO AIR W TROLLEY WIRE INSTALLER (08/01/2021 10:35 EST) Anatomical Region Laterality Modality [...] 12:14 EST [place] UGI WO AIR W TROLLEY WIRE INSTALLER ??08/01/2021 9:35 AM Signs and Symptoms/Comments: ?? [...] to tolerate oral intake of contrast. 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 Ashlie Greene MD [facility]AGI NG ORDERABLES * (ABNORMAL) COMPLETE BLOOD COUNT AND DIFFERENTIAL (08/01/2021 5:26 EST) WBC 6.37 4.00 - 10.40 K/cmm 08/01/2021 5:37 EST [facility] LABORATORY SERVICES RBC 2.70(L) 4.36 - 5.78 M/cmm 08/01/2021 5:37 EST [facility] LABORATORY SERVICES Hemoglobin 8.1(L) 13.8 - 17.3 gm/dL 08/01/2021 5:37 [facility] HCT 24.9(L) 39.5 - 50.2 % 08/01/2021 5:37 [facility] LABORATORY SERVICES MCV 92 81 - 95 fl 08/01/2021 5:37 [facility]ORY SERVICES MCH 30.0 27.6 - 33.0 pg 08/01/2021 5:37 [facility]ATORY [facility] MCHC 32.5(L) 32.8 - 36.4 gm/dL 08/01/2021 5:37 [facility] LAB[facility]ATORY SERVICES RDW-CV 13.2 <14.2 % 08/01/2021 5:37 [facility] LAB[facility] SERVICES RDW-SD 44.2 <46.0 fl 08/01/2021 5:37 [facility] LAB[facility]ATORY SERVICES PLT 167 141 - 377 K/cmm 08/01/2021 5:37 [facility] MPV 11.5 9.5 - 12.7 fl 08/01/2021 5:37 [facility] % Neutrophils 62.4 % 08/01/2021 5:37 [facility] % Lymphocytes 14.4 % 08/01/2021 5:37 [facility] % Monocytes 9.7 % 08/01/2021 5:37 [facility] % Eosinophils 12.1 % 08/01/2021 5:37 [facility] % Basophils 0.9 % 08/01/2021 5:37 [facility] % Immature Grans 0.5 % 08/02/19 5:37 [facility] Absolute Neutrophils 3.97 2.20 - 8.85 K/cmm 08/01/2021 5:37 [facility] Absolute Lymphocytes 0.92(L) 1.09 - 3.30 K/cmm 08/01/2021 5:37 [facility] Absolute Monocytes 0.62 0.10 - 0.80 K/cmm 08/01/2021 5:37 [facility] Absolute Eosinophils 0.77(H) 0.03 - 0.61 K/cmm 08/01/2021 5:37 [facility] ABS Basophils 0.06 0.01 - 0.11 K/cmm 08/01/2021 5:37 EST [facility]ORY SERVICES Absolute Immature Grans 0.03 0.00 - 0.06 K/cmm 08/01/2021 5:37 EST [facility]ORY SERVICES Type of Differential: Auto 08/01/2021 5:37 EST [facility] Blood BLOOD SAMPLE TAKEN FROM CENTRAL LINE / Unknown Venipuncture / Unknown 08/01/2021 5:26 EST 08/01/2021 5:30 EST Yomi Arreola MD PACKAGES & DNA PROBE ORDERABLES Performing Organization Address [facility] Co de Phone Number [facility] SERVICES [address] [place] [address] * PHOSPHORUS (08/01/2021 5:25 EST) Phosphorus 3.8 2.5 - 4.5 mg/dL 08/01/2021 6:07 EST [facility] Blood VENOUS BLOOD / Unknown Venipuncture / Unknown 08/01/2021 5:25 EST 08/01/2021 5:30 EST Yomi Arreola MD CHEMISTRY & BLOOD GA S ORDERABLES Performing Organization Address [facility] Co de Phone Number [facility] [address] [place] [address] * MAGNESIUM (08/01/2021 5:25 EST) Magnesium 2.3 1.7 - 2.8 mg/dL 08/01/2021 6:07 EST [facility] Blood VENOUS BLOOD / Unknown Venipuncture / Unknown 08/01/2021 5:25 EST 08/01/2021 5:30 EST Yomi Arreola MD CHEMISTRY & BLOOD GA S ORDERABLES Performing Organization Address [facility] de Phone Number [facility] [address] [place] [address] * (ABNORMAL) COMPREHENSIVE METABOLIC PANEL (CMP) (08/01/2021 5:25 EST) Sodium 131(L) 136 - 145 mmol/L 08/01/2021 6:07 [facility] Potassium 4.2 3.5 - 5.0 mmol/L 08/01/2021 6:07 [facility] Chloride 100 96 - 110 mmol/L 08/01/2021 6:07 [facility] CO2 Total 18(L) 22 - 32 mmol/L 08/01/2021 6:07 [facility] Glucose 79 70 - 100 mg/dL 08/01/2021 6:07 [facility] BUN 44(H) 10 - 26 mg/dL 08/01/2021 6:07 [facility] Creatinine 1.89(H) 0.66 - 1.25 mg/dL 08/01/2021 6:07 [facility] eGFR 36(L) >60 mL/min/1.7 3m2 08/01/2021 6:07 [facility] Total Protein 5.3(L) 6.3 - 8.2 g/dL 08/01/2021 6:07 [facility] Albumin 3.0(L) 3.4 - 4.9 g/dL 08/01/2021 6:07 [facility] Alkaline Phosphatase 69 38 - 126 U/L 08/01/2021 6:07 [facility] AST 20 15 - 46 U/L 08/01/2021 6:07 [facility] ALT 19 <50 U/L 08/01/2021 6:07 [facility] Bilirubin, Total <0.5 <1.4 mg/dL 08/02/19 6:07 [facility] Calcium 7.4(L) 8.5 - 10.5 mg/dL 08/01/2021 6:07 [facility] Albumin/Globulin Ratio 1.3 1.0 - 2.5 08/01/2021 6:07 [facility] Anion Gap 13 5 - 14 08/01/2021 6:07 [facility] Blood VENOUS BLOOD / Unknown Venipuncture / Unknown 08/01/2021 5:25 EST 08/01/2021 5:30 EST Yomi Arreola MD CHEMISTRY & BLOOD GA S ORDERABLES Performing Organization Address [facility] Co de Phone Number [facility] [address] [place] [address] * COVID-19 TEST [facility] PCR (07/31/2021 21:37 EST) Swab BOTH ANTERIOR NARES / Unknown Swab / Unknown 07/31/2021 21:37 EST 07/31/2021 21:43 EST Yomi Arreola MD MICROBIOLOGY - GENER AL ORDERABLES Performing Organization Address [facility] Co de Phone Number [facility]AT[facility] SERVICES [address] [place] [id number] * COVID-19 TESTING (07/31/2021 21:37 EST) COVID-19 rt-PCR Result Negative Negative 08/01/2021 2:11 EST [facility] SERVICES Comment: This test has not [...] history, and epidemiological information. Performed on the [employer] Fusion instrument Performing Lab [facility] 08/01/2021 2:11 EST [facility] SERVICES Swab BOTH ANTERIOR NARES / Unknown Swab / Unknown 07/31/2021 21:37 EST 07/31/2021 21:43 EST Yomi Arreola MD MICROBIOLOGY - GENER AL ORDERABLES Performing Organization Address [facility] Co de Phone Number [facility] [address] [place] [address] * PHOSPHORUS (07/31/2021 21:36 EST) Phosphorus 4.0 2.5 - 4.5 mg/dL 07/31/2021 21:59 EST [facility] Blood VENOUS BLOOD / Unknown Venipuncture / Unknown 07/31/2021 21:36 EST 07/31/2021 21:43 EST Yomi Arreola MD CHEMISTRY & BLOOD GA S ORDERABLES Performing Organization Address [facility] Co de Phone Number [facility] [address] [place] [address] * MAGNESIUM (07/31/2021 21:36 EST) Magnesium 2.1 1.7 - 2.8 mg/dL 07/31/2021 21:59 EST [facility] Blood VENOUS BLOOD / Unknown Venipuncture / Unknown 07/31/2021 21:36 EST 07/31/2021 21:43 EST Yomi Arreola MD CHEMISTRY & BLOOD GA S ORDERABLES Performing Organization Address [facility] Co de Phone Number [facility] [address] [place] [address] * (ABNORMAL) COMPLETE BLOOD COUNT AND DIFFERENTIAL (07/31/2021 21:36 EST) WBC 8.00 4.00 - 10.40 K/cmm 07/31/2021 21:55 EST [facility] RBC 3.23(L) 4.36 - 5.78 M/cmm 07/31/2021 21:55 EST [facility] Hemoglobin 9.9(L) 13.8 - 17.3 gm/dL 07/31/2021 21:55 EST [facility] HCT 29.1(L) 39.5 - 50.2 % 07/31/2021 21:55 [facility] MCV 90 81 - 95 fl 07/31/2021 21:55 [facility] MCH 30.7 27.6 - 33.0 pg 07/31/2021 21:55 [facility] MCHC 34.0 32.8 - 36.4 gm/dL 07/31/2021 21:55 [facility] RDW-CV 13.1 <14.2 % 07/31/2021 21:55 [facility] RDW-SD 43.8 <46.0 fl 07/31/2021 21:55 [facility] PLT 186 141 - 377 K/cmm 07/31/2021 21:55 [facility] MPV 11.6 9.5 - 12.7 fl 07/31/2021 21:55 [facility] % Neutrophils 75.2 % 07/31/2021 21:55 [facility] % Lymphocytes 8.9 % 07/31/2021 21:55 [facility] % Monocytes 6.6 % 07/31/2021 21:55 [facility] % Eosinophils 7.9 % 07/31/2021 21:55 [facility] % Basophils 0.8 % 07/31/2021 21:55 [facility] % Immature Grans 0.6 % 08/01/19 21:55 [facility] Absolute Neutrophils 6.02 2.20 - 8.85 K/cmm 07/31/2021 21:55 [facility] Absolute Lymphocytes 0.71(L) 1.09 - 3.30 K/cmm 07/31/2021 21:55 [facility] Absolute Monocytes 0.53 0.10 - 0.80 K/cmm 07/31/2021 21:55 [facility] Absolute Eosinophils 0.63(H) 0.03 - 0.61 K/cmm 07/31/2021 21:55 [facility] ABS Basophils 0.06 0.01 - 0.11 K/cmm 07/31/2021 21:55 [facility] Absolute Immature Grans 0.05 0.00 - 0.06 K/[facility] 07/31/2021 21:55 [facility] Type of Differential: Auto 07/31/2021 21:55 [facility] Blood BLOOD SAMPLE TAKEN FROM CENTRAL LINE / Unknown Venipuncture / Unknown 07/31/2021 21:36 EST 07/31/2021 21:43 EST Yomi Arreola MD PACKAGES & DNA PROBE ORDERABLES [facility] [address] [place] [address] * (ABNORMAL) COMPREHENSIVE METABOLIC PANEL (CMP) (07/31/2021 21:36 EST) Sodium 134(L) 136 - 145 mmol/L 07/31/2021 21:59 [facility] Potassium 4.4 3.5 - 5.0 mmol/L 07/31/2021 21:59 [facility] Chloride 100 96 - 110 mmol/L 07/31/2021 21:59 [facility] CO2 Total 21(L) 22 - 32 mmol/L 07/31/2021 21:59 [facility] Glucose 96 70 - 100 mg/dL 07/31/2021 21:59 [facility] BUN 53(H) 10 - 26 mg/dL 07/31/2021 21:59 [facility] Creatinine 2.22(H) 0.66 - 1.25 mg/dL 07/31/2021 21:59 [facility] eGFR 30(L) >60 mL/min/1.7 3m2 07/31/2021 21:59 [facility] Total Protein 6.7 6.3 - 8.2 g/dL 07/31/2021 21:59 [facility] Albumin 4.1 3.4 - 4.9 g/dL 07/31/2021 21:59 [facility] Alkaline Phosphatase 89 38 - 126 U/L 07/31/2021 21:59 [facility] AST 25 15 - 46 U/L 07/31/2021 21:59 [facility] ALT 27 <50 U/L 07/31/2021 21:59 [facility] Bilirubin, Total <0.5 <1.4 mg/dL 08/01/19 21:59 [facility] Calcium 9.0 8.5 - 10.5 mg/dL 07/31/2021 21:59 [facility] Albumin/Globulin Ratio 1.6 1.0 - 2.5 07/31/2021 21:59 [facility] Anion Gap 13 5 - 14 07/31/2021 21:59 [facility] Blood VENOUS BLOOD / Unknown Venipuncture / Unknown 07/31/2021 21:36 EST 07/31/2021 21:43 EST Yomi Arreola MD CHEMISTRY & BLOOD GA S ORDERABLES Performing Organization Address [facility]/State/[facility] Co de Phone Number [facility] [address] [place] [address] * XR CHEST PORTABLE 1 VIEW (07/31/2021 [...] the left upper quadrant, and outside the [id number]. Soft tissues, bones and extrathoracic findings: There [...] into the left upper quadrant, and outsidethe [id number]. Soft tissues, bones and extrathoracic findings: There [...] Provider: Donna Carpenter RN)1611 (Given - Provider: Donna Carpenter RN)2358 (Given - Provider: John Rocah, LOYD) 0738 (Given - Provider: Nima Castano, [...] 4-6, Routine 1735 (Given - Provider: Nima Castano, LOYD)2350 (Given - Provider: John Rocha RN) [...] 08/11/2021 documented in this encounter Care Teams Plateman Relationship Specialty Start Date End Date Jovani Wharton DO [address] [place] [address] PCP - General 10/11/16 10/17/21 documented as of this encounter
--- OUTSIDE RECORDS SUMMARY | 2023-12-20 02:21 | XMS_ITS | Encounter Summary ---
Author Organization [facility] Address [address] [place] [address] Care Team Providers Care Commissioner Public Works Name Role Phone Jorge Chauhan MD Primary Care Provider Encounter Details Date Type Department Care Team (Late st Contact Info) Description 10/20/2021 Orders Only [facility] General Surgery - Main [place] [address] [place] [address] Elena Mayorga RN [address] [place] [address] Paraesophageal hernia (Primary Dx) Social History Tobacco [...] gangrene documented in this encounter Care Teams Commissioner Public Works Relationship Specialty Start Date End Date Jorge Chauhan MD [address] [place] [address] PCP - General Family Medicine - Primary Care 10/18/21 11/22/21 documented as of this encounter
--- OUTSIDE RECORDS SUMMARY | 2023-12-20 02:21 | XMS_ITS | Encounter Summary ---
Author Organization [facility] Address [address] [place] [address] Care Team Providers Care Group Home Paraprofessional Name Role Phone Dio Jovani Michel Primary Care Provider +1- [phone] Reason for Visit * Reason Onset Date Comments COVID-19 09/26/2021 COVID-19 10/01/2021 scheduling Encounter Details Date Type Department Care Team (Late st Contact Info) Description 09/26/2021 Telephone [facility] [address] [place] [address] Ollie Lee MD [address] [facility], [address] [place] [address] COVID-19; COVID-19 (scheduling) Social History [...] 10/01/2021 1431 EDT Patient is going to [facility] to get COVID-19 testing prior to procedure on 10/25. Smoke Inspector explained to patient they need to be tested on 10/22 in order to get results back in time. Smoke Inspector faxed order. * Telephone Encounter - Karon Phan - 10/01/2021 1056 EDT Called patient to schedule COVID-19 testing. Left message requesting a call back at # [phone].Patient will need to be tested on 10/22, 3 days prior to procedure on 10/25. This is our 2nd attempt at calling the patient. * Telephone Encounter - Alicja Hope - 09/30/2021 1215 EDT MyChart message to patient regarding scheduling. * Telephone Encounter - Philip Martinez - 09/26/2021 1835 EDT Called patient to schedule COVID-19 testing. Requested a call back @[phone]. This is our 1st attempt at contacting the patient. documented in this encounter Plan of Treatment Not on file documented as of this encounter Visit Diagnoses Not on filedocumented in this encounter Care Teams Group Home Paraprofessional Relationship Specialty Start Date End Date Jovani Wharton DO [address] [place] [address] PCP - General 10/11/16 10/17/21 documented as of this encounter
--- OUTSIDE RECORDS SUMMARY | 2023-12-20 02:21 | XMS_ITS | Encounter Summary ---
Author Organization [facility] Address [address] [place] [address] Care Team Providers Care Community Organization Aide Name Role Phone Jorge Chauhan MD Primary Care Provider Reason for Visit * Reason Onset Date Comments Other 10/20/2021 Encounter Details Date Type Department Care Team (Late st Contact Info) Description 10/20/2021 Telephone [facility] General Surgery - [address] [id number] Ollie Lee MD [address] [place] [address], [address] [place] [address] Other Social History Tobacco Use [...] see Mathew is having COVID testing at [facility]. * Telephone Encounter - Pamela Doty [...] filedocumented in this encounter Care Teams Community Organization Aide Relationship Specialty Start Date End Date Jorge Chauhan MD [address] [place] [address] [place] [address] PCP - General Family Medicine - Primary Care 10/18/21 11/22/21 documented as of this encounter
--- OUTSIDE RECORDS SUMMARY | 2023-12-20 02:21 | XMS_ITS | Encounter Summary ---
Author Organization [facility] Address [address] [place] [address] Care Team Providers Care Power Supply Engineer Name Role Phone Jovani Wharton DO Primary Care Provider +1- [phone] Encounter Details Date Type Department Care Team (Latest Contact Info) Description 07/31/2021 - 07/31/2021 18:57 EST Hospital Encounter [facility] Secondary Reads [place] Discharge Disposition: [...] on filedocumented in this encounter Care Teams Power Supply Engineer Relationship Specialty Start Date End Date Jovani Wharton DO [address] [place] [address] PCP - General 10/11/16 10/17/21 documented as of this encounter
--- OUTSIDE RECORDS SUMMARY | 2023-12-20 02:21 | XMS_ITS | Encounter Summary ---
Author Organization [facility] Address [address] [place] [address] Care Team Providers Care Professor Of Economics Name Role Phone Jovani Wharton DO Primary Care Provider +1- [phone] Encounter Details Date Type Department Care Team [...] on filedocumented in this encounter Care Teams Professor Of Economics Relationship Specialty Start Date End Date Jovani Wharton DO [address] [place] [address] PCP - General 10/11/16 10/17/21 documented as of this encounter
--- OUTSIDE RECORDS SUMMARY | 2023-12-20 02:21 | XMS_ITS | Encounter Summary ---
Author Organization [facility] Address [address] [place] [address] Care Team Providers Care Clinical Quality Assurance Associate Name Role Phone Dio, Jovani Michel Primary Care Provider +1- [phone] Reason for Visit * Reason Onset Date Comments Other 08/14/2021 Encounter Details Date Type Department Care Team (Late st Contact Info) Description 08/14/2021 Telephone [facility] General Surgery - [facility] [address] [place], [place] [phone] Ollie Lee MD [address] [facility], [address] [place] [address] Other Social History Tobacco Use [...] documented as of this encounter Care Teams Clinical Quality Assurance Associate Relationship Specialty Start Date End Date Jovani Wharton DO [address] [place] [address] PCP - General 10/11/16 10/17/21 documented as of this encounter
--- OUTSIDE RECORDS SUMMARY | 2023-12-20 02:21 | XMS_ITS | Encounter Summary ---
Author Organization [facility] Address [address] [place] [address] Care Team Providers Care Nuclear Equipment Research Engineer Name Role Phone Jorge Chauhan MD Primary Care Provider Encounter Details Date Type Department Care Team (Latest Contact Info) Description 10/21/2021 0:30 EDT - 10/21/2021 23:59 EDT Hospital Encounter [facility] Pre-Surgical Testing [address] [place], [place] [address] Discharge Disposition: Home or Self Care Social [...] Location: Covid test plan for 10/22/21 at [facility]. Vaccination Status: _x__ Pt states fully vaccinated, __x_ Verified in chart ___ Pt states unvaccinated -Do not instruct patient regarding COVID testing, let [facility] coordinate this -Communicate status on yellow [...] instruct them to call us back at [phone] to report symptoms Visitor Policy: Surgical & [...] daily. added in this encounter Care Teams Nuclear Equipment Research Engineer Relationship Specialty Start Date End Date Jorge Chauhan MD [address] [place] [address] PCP - General Family Medicine - Primary Care 10/18/21 11/22/21 documented as of this encounter
--- OUTSIDE RECORDS SUMMARY | 2023-12-20 02:21 | XMS_ITS | Encounter Summary ---
Author Organization [facility] Address [address] [place] [address] Care Team Providers Care Pocketbook Maker Name Role Phone Jorge Chauhan MD Primary Care Provider Reason for Visit * Reason Onset Date Comments Pre-visit Orders 10/20/2021 Labs Only 10/20/2021 Encounter Details Date Type Department Care Team (Late st Contact Info) Description 10/20/2021 Telephone [facility] General Surgery - [facility] [address] [place], [place] [phone] Ollie Lee MD [address] [facility], [address] [place] [address] Pre-visit Orders; Labs Only Social [...] EDT Fax patient's orders to fax # [phone] as patient has an appointment today. documented in this encounter Plan of Treatment Not on file documented as of this encounter Visit Diagnoses Not on filedocumented in this encounter Care Teams Pocketbook Maker Relationship Specialty Start Date End Date Jorge Chauhan MD [address] [place] [address] PCP - General Family Medicine - Primary Care 10/18/21 11/22/21 documented as of this encounter
--- OUTSIDE RECORDS SUMMARY | 2023-12-20 02:21 | XMS_ITS | Encounter Summary ---
Author Organization [facility] Address [address] [place] [address] Care Team Providers Care Dog Or Animal Sitter Name Role Phone Dio, Jovani Michel Primary Care Provider +1- [phone] Encounter Details Date Type Department Care Team (Late st Contact Info) Description 09/26/2021 Orders Only [facility] General Surgery - [address] [phone] Ollie Lee MD [address] [place] [address], [address] [place] [address] Encounter for preoperative screening laboratory [...] 08/08/2021 ?? Chief Complaint/Procedure: PEH; Transferred from [facility] ?? 24 Hr Events: - NAEON [...] Wt 69.7 kg (153 lb 9.6 oz) TzY750% BMI 24.79 kg/m?? Intake/Output: I&O By Type [...] subsequent??colostomy reversal)??who presents as a transfer from [facility] after presenting with acute onset abdominal [...] saw and examined the patient with the resident program specialist / blue team on 08/08/2021 16:45. I [...] 08/09/2021 ?? Chief Complaint/Procedure: PEH; Transferred from [facility] ?? 24 Hr Events: - NAEON [...] subsequent??colostomy reversal)??who presents as a transfer from [facility] after presenting with acute onset abdominal pain secondary to an incarcerated paraesophageal hernia. He was taken??to the OR on 07/24 for an exploratory laparotomy, lysis of adhesions, reduction of his gastric contents, and suture gastropexy. Transferred to [facility] due to ongoing symptoms with imaging showing [...] MD 08/09/2021 7:50 General Surgery PGY-5 Pager [phone] ? Cosigned by: Luís Morin MD at 08/09/2021 15:55 ??7:54 Attestation statement: I saw and examined the patient with the resident program specialist / blue team 08/09/2021 15:55 . I [...] 08/10/2021 ?? Chief Complaint/Procedure: PEH; Transferred from [facility] ?? 24 Hr Events: - No acute events overnight. TPN discontinued. ?? Subjective: [place] great in the last 24 hours. Completely [...] subsequent??colostomy reversal)??who presents as a transfer from [facility] after presenting with acute onset abdominal pain secondary to an incarcerated paraesophageal hernia. He was taken??to the OR on 07/24 for an exploratory laparotomy, lysis of adhesions, reduction of his gastric contents, and suture gastropexy. Transferred to [facility] due to ongoing symptoms with imaging showing [...] MD 08/10/2021 7:18 General Surgery PGY-3 Pager [phone] ? Cosigned by: Luís Morin MD at 08/11/2021 ??8:40 ??7:26 ??8:40 Attestation statement: I saw and examined the patient with the resident program specialist / blue team 08/11/2021 ??8:40 . I agree with the findings, assessment, and plan as outlined above. documented in this encounter Plan of Treatment Not on file documented as of this encounter Visit Diagnoses Diagnosis Encounter for preoperative screening laboratory testing for COVID-19 virus- Primary documented in this encounter Care Teams Dog Or Animal Sitter Relationship Specialty Start Date End Date Jovani Wharton DO [address] [place] [address] PCP - General 10/11/16 10/17/21 documented as of this encounter
--- OUTSIDE RECORDS SUMMARY | 2023-12-20 02:21 | XMS_ITS | Encounter Summary ---
Author Organization [facility] Address [address] [place] [address] Care Team Providers Care Electric Utility Lineworker Name Role Phone Jorge Chauhan MD Primary Care Provider Encounter Details Date Type Department Care Team (Late st Contact Info) Description 10/24/2021 Abstract [facility] General Surgery - [address] [address] Ollie Lee MD [address] [place] [address], [address] [place] [address] Social History Tobacco Use Types [...] on filedocumented in this encounter Care Teams Electric Utility Lineworker Relationship Specialty Start Date End Date Jorge Chauhan MD [address] [place] [address] PCP - General Family Medicine - Primary Care 10/18/21 11/22/21 documented as of this encounter
--- OUTSIDE RECORDS SUMMARY | 2023-12-20 02:21 | XMS_ITS | Encounter Summary ---
Author Organization [facility] Address [address] [place] [address] Care Team Providers Care Professional Soccer Player Name Role Phone Jovani Wharton DO Primary Care Provider +1- [phone] Reason for Visit * (Routine/Next Available) - Receiving Office to Obtain Authorization Specialty Diagnoses / Procedures Referred By Devaughn bobo Referred To Contact Procedures XR OUTSIDE IMAGES BODY Unknown, Provider, Referral ID Status Reason Start Date Expiration Date Visits Requested Visits Authorized [id number] Receiving Office to Obtain Authorization 07/31/2021 1 1 Encounter Details Date Type Department Care Team (Latest Contact Info) Description 07/28/2021 - 07/28/2021 23:59 EST Hospital Encounter [facility] Secondary Reads [place] Discharge Disposition: [...] on filedocumented in this encounter Care Teams Professional Soccer Player Relationship Specialty Start Date End Date Jovani Wharton DO [address] [place] [address] PCP - General 10/11/16 10/17/21 documented as of this encounter
--- OUTSIDE RECORDS SUMMARY | 2023-12-20 02:21 | XMS_ITS | Encounter Summary ---
Author Organization [facility] Address [address] [place] [address] Care Team Providers Care Custodian Manager Name Role Phone Jorge Chauhan MD Primary Care Provider Luis Lauren MD Primary Care Provider [phone] Slade Tran MD Primary Care Provider [phone] Encounter Details Date Type Department Care Team (Late st Contact Info) Description 10/21/2021 Lab Requisition [facility] Pathology & Laboratory Medicine - [facility] [address] [place], [place] [address] Outr Resulting Lab, Provider Social History Tobacco [...] C Antibody Negative Negative 10/23/2021 10:57 EDT [facility] Blood VENOUS BLOOD / Unknown 10/20/2021 16:02 EDT 10/21/2021 22:12 EDT Provider Outr Resulting Lab CHEMISTRY & BLOOD GAS ORDERABLES [facility] [address] [place] [address] documented in this encounter Visit Diagnoses Not on filedocumented in this encounter Care Teams Custodian Manager Relationship Specialty Start Date End Date Jorge Chauhan MD [address] [place] [address] PCP - General Family Medicine - Primary Care 10/18/21 11/22/21 Luis Lauren MD [address] [place] [address] PCP - General Family Medicine - Primary Care 11/23/21 11/11/22 Slade Tran MD [facility] [place] [address] PCP - General 11/12/22 documented as of this encounter
--- OUTSIDE RECORDS SUMMARY | 2023-12-20 02:21 | XMS_ITS | Encounter Summary ---
Author Organization [facility] Address [address] [place] [address] Care Team Providers Care Belt And Link Shop Supervisor Name Role Phone Dio Jovani Pearson Primary Care Provider [phone]- [phone] Reason for Visit * Reason Comments Follow-up hospital f/u * Consult (See Order Priority) - Order Cancelled Specialty Diagnoses / Procedures Referred By Devaughn bobo Referred To Contact General Surgery Diagnoses Paraesophageal hernia Ashlie Greene MD [address] [place] [address] Ollie Lee MD [address] [place] [phone] Referral ID Status Reason Start Date Expiration Date Visits Requested Visits Authorized [id number] Order Cancelled Specialty Services Required 08/11/2021 1 1 Encounter Details Date Type Department Care Team (Late st Contact Info) Description 08/25/2021 10:45 EDT Office Visit [facility] General Surgery - [address] [address] Ollie Lee MD [address] [place] [address] Paraesophageal hernia (Primary Dx) Social History [...] summarize, he presented to the hospital in [place] with a paraesophageal hernia that was symptomatic for him. The [facility]'s tendons surgeon that was covering there performed [...] 08/25/2021 documented in this encounter Care Teams Belt And Link Shop Supervisor Relationship Specialty Start Date End Date Jovani Wharton DO [address] [place] [address] PCP - General 10/11/16 10/17/21 documented as of this encounter
--- OUTSIDE RECORDS SUMMARY | 2023-12-20 02:21 | XMS_ITS | Encounter Summary ---
Author Organization [facility] Address [address] [place] [address] Care Team Providers Care Design Chief Name Role Phone Jorge Chauhan MD Primary Care Provider Luis Lauren MD Primary Care Provider [phone] Slade Tran MD Primary Care Provider [phone] Encounter Details Date Type Department Care Team (Late st Contact Info) Description 10/21/2021 Lab Requisition [facility] Pathology & Laboratory Medicine - [facility] [address] [place], [place] [phone] Outr Resulting Lab, Provider Social History Tobacco [...] AND ANTIBODY, 4TH GENERATION (10/20/2021 16:02 EDT) [facility] HIV 1 and 2 Antibody/p24 Antigen, 4th Generation Negative Negative 10/23/2021 11:00 EDT [facility] Comment:If acute HIV-1 infec tion is suspected in a high risk patient, submit plasma specimen for HIV-1 RNA quantitation test. Blood VENOUS BLOOD / Unknown 10/20/2021 16:02 EDT 10/21/2021 22:12 EDT Narrative [facility] - 10/23/2021 11:00 EDT Fourth Generation assay performed on the Siemens Centaur XPT. Provider Outr Resulting Lab IMMUNOLOGY A ND SEROLOGY ORDERABLES [facility] [address] [place] [address] documented in this encounter Visit Diagnoses Not on filedocumented in this encounter Care Teams Design Chief Relationship Specialty Start Date End Date Jorge Chauhan MD [address] [place] [address] PCP - General Family Medicine - Primary Care 10/18/21 11/22/21 Luis Lauren MD [address] [place] [address] PCP - General Family Medicine - Primary Care 11/23/21 11/11/22 Slade Tran MD [address] [place] [address] PCP - General 11/12/22 documented as of this encounter
--- OUTSIDE RECORDS SUMMARY | 2023-12-20 02:21 | XMS_ITS | Encounter Summary ---
Author Organization [facility] Address [address] [place] [address] Care Team Providers Care Seed Trucker Name Role Phone Jorge Chauhan MD Primary Care Provider Reason for Visit * Auth/Cert Specialty Diagnoses / Procedures [facility] Referred To Contact Diagnoses Paraesophageal hernia Procedures CA LAP, REPAIR PARAESOPHAGEAL HERNIA, INCL FUNDOPLASTY W/ MESH Laparoscopic paraesophageal hernia repair with mesh Referral ID Status Reason Start Date Expiration Date Visits Re quested Visits Authorized [id number] 10/05/2021 05/26/2022 1 1 Encounter Details Date Type Department Care Team (Late st Contact Info) Description 10/25/2021 7:25 EDT - 10/25/2021 11:21 EDT Surgery [facility] OR [address] [place] [address] [id number] Ollie Lee MD [address] [place] [address], [facility], [address] [place] [address] Laparoscopic paraesophageal hernia repair with mesh [40586 (CPT??)] Surgery Details Date/Time Status Location OR Service Patient Class Case Class Case Type Trauma Case? 10/25/21 0725 Posted [facility] OR MOR 14 General Extended Stay H [...] Code Departure Means Destination Home or Self Longterm documented in this encounter Progress Notes * [...] summarize, he presented to the hospital in [place] with a paraesophageal hernia that was symptomatic for him. [facility]'s tendons surgeon that was covering there [...] disease) Stage IV, followed by nephrology @ [facility], no restrictions per pt ??? Diverticulitis Around [...] Consented Jesus Herndon MD 10/25/2021 6:14 Surgery [employer] Supervisor Pager #[phone] documented in this encounter Nursing Notes * [...] Toupet fundoplication. SURGEON: Ollie Lee MD, FACS RETAIL SOLAR ADVISOR: Jesus Herndon MD ANESTHESIA: General endotracheal and [...] the esophagus, which was encircled with a [place] drain for retraction. Mediastinal dissection of the [...] then brought posterior to the esophagus. The [place] drain was released. A partial posterior fundoplication [...] Ollie Lee MD FACS / CD Confirmation: [id number] Dictation ID: [id number] cc: Ollie Lee MD [facility], [facility] - Surgery, [address] [place] [address] Jorge Chauhan MD, [place] [address] Jesus Herndon MD, [facility] - House Staff Mail, [address] [place] [address] documented in this encounter Miscellaneous Notes * [...] EDT BRIEF OP NOTE Surgeon: Dr. Lee Viscosity Worker: Dr. Herndon Pre-op diagnosis: Paraesophageal hernia Post-op [...] 4.00 - 10.40 K/cmm 10/26/2021 9:48 EDT [facility] RBC 3.20(L) 4.36 - 5.78 M/cmm 10/26/2021 9:48 EDT [facility] Hemoglobin 9.9(L) 13.8 - 17.3 gm/dL 10/26/2021 9:48 EDT [facility] HCT 29.8(L) 39.5 - 50.2 % 10/26/2021 9:48 EDT [facility] MCV 93 81 - 95 fl 10/26/2021 9:48 EDT [facility] MCH 30.9 27.6 - 33.0 pg 10/26/2021 9:48 EDT [facility] MCHC 33.2 32.8 - 36.4 gm/dL 10/26/2021 9:48 T [facility] RDW-CV 15.5(H) <14.2 % 10/26/2021 9:48 EDT [facility] RDW-SD 52.9(H) <46.0 fl 10/26/2021 9:48 EDT [facility] PLT 153 141 - 377 K/cmm 10/26/2021 9:48 T [facility] MPV 11.8 9.5 - 12.7 fl 10/26/2021 9:48 T [facility] Blood VENOUS BLOOD / Unknown Venipuncture / Unknown 10/26/2021 9:27 EDT 10/26/2021 9:42 EDT Jesus Herndon MD HEMATOLOGY & PF4 OR DERABLES [facility] [address] [place] [address] * (ABNORMAL) COMPLETE BLOOD COUNT (10/25/2021 18:32 EDT) WBC 10.43(H) 4.00 - 10.40 K/cmm 10/25/2021 18:48 EDT [facility] RBC 3.33(L) 4.36 - 5.78 M/cmm 10/25/2021 18:48 EDT [facility] Hemoglobin 10.2(L) 13.8 - 17.3 gm/dL 10/25/2021 18:48 T [facility] HCT 29.9(L) 39.5 - 50.2 % 10/25/2021 18:48 EDT [facility] MCV 90 81 - 95 fl 10/25/2021 18:48 EDT [facility] MCH 30.6 27.6 - 33.0 pg 10/25/2021 18:48 EDT [facility] MCHC 34.1 32.8 - 36.4 gm/dL 10/25/2021 18:48 EDT [facility] RDW-CV 15.1(H) <14.2 % 10/25/2021 18:48 EDT [facility] RDW-SD 49.8(H) <46.0 fl 10/25/2021 18:48 EDT [facility] PLT 159 141 - 377 K/cmm 10/25/2021 18:48 EDT [facility] MPV 11.3 9.5 - 12.7 fl 10/25/2021 18:48 EDT [facility] Blood VENOUS BLOOD / Unknown Venipuncture / Unknown 10/25/2021 18:32 EDT 10/25/2021 18:36 EDT Jesus Herndon MD HEMATOLOGY & PF4 OR DERABLES Performing Organization Address City/State/[facility] Co de Phone Number [facility] [address] [place] [address] * (ABNORMAL) COMPLETE BLOOD COUNT AND DIFFERENTIAL (10/25/2021 12:22 EDT) WBC 12.50(H) 4.00 - 10.40 K/cmm 10/25/2021 12:34 EDT [facility] RBC 3.19(L) 4.36 - 5.78 M/cmm 10/25/2021 12:34 EDT [facility] Hemoglobin 9.9(L) 13.8 - 17.3 gm/dL 10/25/2021 12:34 EDT [facility] HCT 29.4(L) 39.5 - 50.2 % 10/25/2021 12:34 [facility] MCV 92 81 - 95 fl 10/25/2021 12:34 [facility] MCH 31.0 27.6 - 33.0 pg 10/25/2021 12:34 [facility] MCHC 33.7 32.8 - 36.4 gm/dL 10/25/2021 12:34 [facility] RDW-CV 15.2(H) <14.2 % 10/25/2021 12:34 [facility] RDW-SD 51.7(H) <46.0 fl 10/25/2021 12:34 [facility] PLT 161 141 - 377 K/cmm 10/25/2021 12:34 [facility] MPV 11.1 9.5 - 12.7 fl 10/25/2021 12:34 [facility] % Neutrophils 87.5 % 10/25/2021 12:34 [facility] % Lymphocytes 3.7 % 10/25/2021 12:34 [facility] % Monocytes 6.6 % 10/25/2021 12:34 [facility] % Eosinophils 1.4 % 10/25/2021 12:34 [facility] % Basophils 0.3 % 10/25/2021 12:34 [facility] % Immature Grans 0.5 % 10/26/19 12:34 [facility] Absolute Neutrophils 10.95(H) 2.20 - 8.85 K/cmm 10/25/2021 12:34 [facility] Absolute Lymphocytes 0.46(L) 1.09 - 3.30 K/cmm 10/25/2021 12:34 [facility] Absolute Monocytes 0.82(H) 0.10 - 0.80 K/cmm 10/25/2021 12:34 [facility] Absolute Eosinophils 0.17 0.03 - 0.61 K/cmm 10/25/2021 12:34 [facility] ABS Basophils 0.04 0.01 - 0.11 K/cmm 10/25/2021 12:34 EDT [facility] Absolute Immature Grans 0.06 0.00 - 0.06 K/cmm 10/25/2021 12:34 EDT [facility] Type of Differential: Auto 10/25/2021 12:34 EDT [facility] Blood VENOUS BLOOD / Unknown Venipuncture / Unknown 10/25/2021 12:22 EDT 10/25/2021 12:24 EDT Jesus Herndon MD PACKAGES & DNA PROB E ORDERABLES [facility] [address] [place] [address] documented in this encounter Visit Diagnoses Diagnosis [...] 10/26/2021 documented in this encounter Care Teams Seed Trucker Relationship Specialty Start Date End Date Jorge Chauhan MD [address] [place] [id number] PCP - General Family Medicine - Primary Care 10/18/21 11/22/21 documented as of this encounter
--- OUTSIDE RECORDS SUMMARY | 2023-12-20 02:21 | XMS_ITS | Encounter Summary ---
Author Organization [facility] Address [address] [place] [address] Care Team Providers Care Personal Property Assessor Name Role Phone Jorge Chauhan MD Primary Care Provider Reason for Visit * Auth/Cert Specialty Diagnoses / Procedures [facility] Referred To Contact Diagnoses Paraesophageal hernia Procedures MA LAP, REPAIR PARAESOPHAGEAL HERNIA, INCL FUNDOPLASTY W/ MESH Laparoscopic paraesophageal hernia repair with mesh Referral ID Status Reason Start Date Expiration Date Visits Re quested Visits Authorized [id number] 10/05/2021 05/26/2022 1 1 Encounter Details Date Type Department Care Team (Late st Contact Info) Description 10/25/2021 7:29 EDT Anesthesia Event [facility] OR [address] [place], [place] [id number] Micah Santoro MD [address] [facility], [address] [place] [phone] Jennifer Alejo MD Anesthesia Record Procedure Summary [...] [facility]. Vitals Value Taken Time BP 10/25/21 [...] during procedure: OR Anesthesiologist: Micah Santoro MD Resident/ANVILSMITH: Jennifer Alejo MD Performed: resident/ANVILSMITH/AA Indications and Patient Condition Indications for airway [...] and paraesophageal hernia who originally presented to [facility] with symptoms of his hernia and was treated with ex lap and gastropexy. Presenting now for laparoscopic paraesophageal hernia repair with mesh, possible open. -Past surgical hx of colectomy, ex lap, TKA -Allergy to morphine -No hx of tobacco use, has not used alcohol since 01/2021 -[employer]IVER meds are allopurinol, amlodipine, lisinopril, metoprolol, omeprazole [...] disease) Stage IV, followed by nephrology @ [facility], no restrictions per pt ??? [...] during procedure: OR Anesthesiologist: Micah Santoro MD Resident/ANVILSMITH: Jennifer Alejo MD Performed: resident/ANVILSMITH/AA Indications and Patient Condition Indications for airway [...] mg documented in this encounter Care Teams Personal Property Assessor Relationship Specialty Start Date End Date Jorge Chauhan MD [address] [place] [phone] PCP - General Family Medicine - Primary Care 10/18/21 11/22/21 documented as of this encounter
--- OUTSIDE RECORDS SUMMARY | 2023-12-20 02:21 | XMS_ITS | Encounter Summary ---
Author Organization [facility] Address [address] [place] [address] Care Team Providers Care Folder Machine Operator Name Role Phone Jorge Chauhan MD Primary Care Provider Reason for Visit * Reason Onset Date Comments Follow-up Diagnostic PSG 10/24/2021 Encounter Details Date Type Department Care Team (Late st Contact Info) Description 10/24/2021 Telephone [facility] Surgery - [address] [phone] Ollie Lee MD [address] [place] [address], [address] [place] [address] Follow-up Diagnostic PSG Social History [...] on filedocumented in this encounter Care Teams Folder Machine Operator Relationship Specialty Start Date End Date Jorge Chauhan MD [address] [place] [phone] PCP - General Family Medicine - Primary Care 10/18/21 11/22/21 documented as of this encounter
--- OUTSIDE RECORDS SUMMARY | 2023-12-20 02:22 | XMS_ITS | Clinical Summary ---
Author Organization [facility] Address [facility] [place] [address] Care Team Providers Care Secondary Special Education Teacher Name Role Phone Govind Mendes Primary Care Provider + Allergies Active Allergy Reactions Criticality Noted Date Comments Cephalosporins Itching 12/19/2023 Morphine Hives 10/17/2016 Medications Medication Sig Dispensed [...] colon Impingement syndrome of shoulder region 11/19/19 Sharma's esophagus 05/23/2023 Bursitis of left knee [...] (08/09/2020): Added automatically from request for surgery [id number] Screen for colon cancer 08/09/2020 Overview (08/09/2020): Added automatically from request for surgery [id number] Gastroesophageal reflux disease 08/09/2020 Overview (08/09/2020): Added automatically from request for surgery [id number] Gastroesophageal reflux disease with esophagitis 09/24/1995 Encounters Date Type Department Care Team Description 12/11/2023 Telephone [place] [address] Karol Iverson, LOYD 12/11/2023 External Results [place] [address] Karol Iverson, LOYD 12/10/2023 Telephone [place] [phone] Karol Iverson, LOYD 12/02/2023 [place] [address] Nehal Ferrara 11/29/2023 Orders [place] [phone] Lawrence Gar MD Sharma's esophagus with dysplasia (Primary Dx) 11/26/2023 Orders Only [place] [phone] Lizet Hayward RN CKD (chronic kidney disease) stage 4, GFR 15-29 ml/min (Primary Dx); Primary hypertension 11/26/2023 Telephone [place] [phone] Lizet Hayward RN 11/19/2023 4:40 PM EDT Office [place] [phone] Lawrence Gar MD Alcohol-induced chronic pancreatitis; Sharma's esophagus with dysplasia 11/19/2023 Travel 11/14/2023 Travel 11/12/2023 11:00 AM EDT - 11/12/2023 12:00 PM EDT [place] [address] Lawrence Gar MD EGD WITH BIOPSY (WRVU 2.39) 11/12/2023 10:46 AM EDT Anesthesia [place] [address] Mathew Tripathi MD 11/12/2023 9:46 AM EDT - 11/12/2023 12:10 PM EDT Hospital En[place] [phone] Lawrence Gar MD Discharge Disposition: Home 11/06/2023 8:00 AM EDT Office Visit Nephrology Hypertension at [place] [phone] Jovani Richardson MD A, Nurse Clinician CKD (chronic kidney disease) stage 4, GFR 15-29 ml/min (Primary Dx); Primary hypertension; Anemia of chronic renal failure, stage 4 (severe); Hyperparathyroidism due to renal insufficiency 11/06/2023 7:20 AM EDT Laboratory Appointment [place] [address] [address] CKD (chronic kidney disease) stage 4, GFR 15-29 ml/min; Primary hypertension; Anemia of chronic renal failure, stage 4 (severe); Acidosis, metabolic 11/06/2023 [place] [address] Govind Mendes PA Secondary hyperparathyroidism, non-renal 11/06/2023 Travel 09/30/2023 Orders Only Nephrology Hypertension at [place] [phone] Karol Iverson, LOYD CKD (chronic kidney disease) stage 4, GFR 15-29 ml/min 09/26/2023 Telephone Nephrology Hypertension at [place] [phone] Karol Iverson, LOYD 09/25/2023 6:25 PM EDT Ancillary Procedure Radiology Library at [place] [phone] Slade rTan MD 09/25/2023 External Results Nephrology Hypertension at [place] [phone] Karol Iverson, LOYD 09/24/2023 External Results Nephrology Hypertension at [place] [phone] Karol Iverson, RN from Last 3 Months Immunizations Name [...] 7:30 AM EDT Hospital En[place] [phone] Lawrence Gar MD [facility] [place] [address] 01/02/2024 7:30 AM EDT - 01/02/2024 8:30 AM EDT [place] [phone] Lawrence Gar MD [facility] [place] [address] EGD, UPPER GI ENDOSCOPY (WRVU 2.09) 11/17/2024 4:20 PM EDT Office [place] [address] Lawrence Gar MD [facility] [place] [address] Scheduled Procedures Name Priority Associated Diagnoses Date/Ti [...] exists Diabetes Screening (HgbA1C o r Glucose) 12/09/2026 12/10/2023, 11/06/2023, 09/23/2023, Additional history exists Colonoscopy 11/11/2028 11/12/2023, 10/25, 10/20/2020, Additional history exists Colorectal Cancer Screening 11/11/2028 Sigmoidoscopy (10 year) with FIT yearly 11/11/2033 11/12/2023, 11/12/2023, 10/20/2020, Additional history exists Tdap adult Completed 08/20/2016 Procedures Procedure Name Priority Date/Time Associated Diagnosis Comments LAB SCAN 12/10/2023 12:00 AM EDT BASIC METABOLIC PANEL (NON-FASTING) Routine 12/10/2023 SURGICAL PATHOLOGY REPORT Routine 11/12/2023 11:23 AM EDT SPECIMEN TO PATHOLOGY Routine 11/12/2023 11:23 AM EDT SPECIMEN TO PATHOLOGY Routine 11/12/2023 11:23 AM EDT Colonoscopy, Remv Lesn, Snare ([id number]) 11/12/2023 10:48 AM EDT 3 year Upper Gi Endoscopy, Biopsy ([id number]) 11/12/2023 10:48 AM EDT 3 year UPPER [...] 09/23/2023 LAB SCAN 09/23/2023 12:00 AM EDT from Last 3 Months Results * Scan Doc: Lab (12/10/2023 12:00 AM EDT) Only the most recent of3 resultswithin the time period is included. Narrative 12/10/2023 12:00 AM EDT Ordered by an unspecified provider. Scanning Provider MEDIA MGR SCAN EXT O RDR/RSLT * Basic Metabolic Panel (non-fasting) (12/10/2023) Only the most recent of3 resultswithin the time period is included. Glucose Lvl 95 BUN 61 Creatinine 4.4 Estimated GFR 13.77 Sodium 142 Potassium 5.1 Chloride 109 CO2 19 Calcium 8.6 Blood 12/10/2023 Historical Provider CHEMISTRY ORDERAB LES * (ABNORMAL) Surgical Pathology Report (11/12/2023 11:23 AM EDT) FINAL DIAGNOSIS (AP) [id number] ? Location: 4T; EA06; A The signing [...] Shyla Verified: ??11/26/2023 14:50 ??Pathologist Performed at: ??-[facility]. of [facility]ology, [place] [address] [facility] [facility] Supervisor: Deana Lopez MD, FCAP, ??CLIA Certificate: [id number] DISCUSSION The case was reviewed at the [...] submitted in 1 cassette labeled B1. ??ajw(A) 11/26/2023 2:50 PM EDT [facility] 11/12/2023 11:2 3 AM EDT Lawrence Gar MD PATHOLOGY/CYTOLOGY O SONIYA Performing Organization Address [facility] [place] [address] * Specimen to Pathology (11/12/2023 11:23 AM EDT) Only the most recent of2 resultswithin the time period is included. AP Specimen 11/12/2023 11:2 3 AM EDT 11/12/2023 11:23 AM EDT Narrative [facility] - 11/12/2023 11:23 AM EDT Specimen requisition ordered. ??Separate Pathology report to follow Lawrence Gar MD PATHOLOGY/CYTOLOGY Eugenie BYRNES Performing Organization Address [facility] de Phone Number [facility] [place] [address] * UPPER GI ENDOSCOPY (11/12/2023 10:28 AM EDT) UPPER GI ENDOSCOPY [facility] Endoscopy ___ Procedure Date: 11/12/2023 10:28 AM ? Patient Name: Mathew Mendez ? Date of : 1955 ? Age: 68 ? Order #: [id number] ? Instrument Name: [id number]- [id number] ? ___ Procedure: ? Upper GI endoscopy [...] * COLONOSCOPY (11/12/2023 10:27 AM EDT) COLONOSCOPY [facility] Endoscopy ___ Procedure Date: 11/12/2023 10:27 AM ? Patient Name: Mathew Mendez ? Date of : 1955 ? Age: 68 ? Order #: [id number] ? Instrument Name: [id number]- [id number] ? ___ Procedure: ? Colonoscopy Indications: ? High risk colon cancer ? surveillance: Personal history of ? colonic polyps Providers: ? Lawrence Gar MD, Isabel M. ? Todd Vanegas Referring MD: ?Slade Tran Medicines: ? Propofol per Anesthesia Complications: ? No [...] ? was evaluated using the BBPS ? ([place] Bowel Preparation Scale) ? with scores of: [...] GENERAL SURGICAL ORD ERABLES Performing Organization Address [facility] Co de Phone Number [facility] * (ABNORMAL) Protein/Creatinine Ratio, urine (11/06/2023 7:48 AM EDT) U Creatinine 69 mg/dL [facility] U Protein Ran 179(H) 0 - 12 mg/dL [facility] Prot/Cre Ratio 2.6 ratio [facility] Urine 11/06/2023 7:48 AM EDT 11/06/2023 7:58 AM EDT Narrative Resulting Agency Comment Spec In Lab Jovani Richardson MD URINE ORDERABLES Performing Organization Address [facility] Co de Phone Number [facility] [place] [address] * (ABNORMAL) PTH (11/06/2023 7:37 AM EDT) Only the most recent of2 resultswithin the time period is included. PTH 113(H) 15 - 65 pg/mL [facility] Blood 11/06/2023 7:37 AM EDT 11/06/2023 7:49 AM EDT Narrative Resulting Agency Comment Spec In Lab Jovani Richardson MD CHEMISTRY ORDERABLES Performing Organization Address City/[facility] Co de Phone Number [facility] [place] [address] * (ABNORMAL) Hemogram (11/06/2023 7:37 AM EDT) WBC 5.2 4.0 - 9.5 x10(3)/[facility] RBC 3.49(L) 4.58 - 5.54 x10(6)/[facility] Hemoglobin 10.7(L) 13.7 - 16.5 g/dL [facility] Hematocrit 33.2(L) 40.5 - 48.5 % [facility] MCV 95.1(H) 82.9 - 93.1 fL [facility] MCH 30.7 27.5 - 32.1 pg [facility] MCHC 32.2 32.0 - 35.7 g/dL [facility] Platelets 175 145 - 357 x10(3)/[facility] RDWSD 44.9 36.0 - 45.0 [facility] RDWCV 12.8 11.4 - 13.8 % [facility] MPV 10.8 7.6 - 12.9 [facility] nRBC % Auto 0.0 % [facility] nRBC Abs Auto 0.000 0.000 - 0.000 x10(3)/[facility] Blood 11/06/2023 7:37 AM EDT 11/06/2023 7:49 AM EDT Narrative Resulting Agency Comment Spec In Lab Jovani Richardson MD HEMATOLOGY ORDERABLE S [facility] [place] [address] * Differential, Automated (11/06/2023 7:37 AM EDT) Pathologist [facility] Neutrophils % 62.9 % [facility] Neutr Abs (ANC) 3.24 1.70 - 6.10 x10(3)/[facility] Lymphocytes % 17.5 % [facility] Lymphocytes Abs 0.9 0.9 - 3.2 x10(3)/[facility] Monocytes % 11.8 % [facility] Monocyte Abs 0.6 0.3 - 0.9 x10(3)/[facility] Eosinophils % 6.2 % [facility] Eosinophils Abs 0.3 0.0 - 0.4 x10(3)/[facility] Basophils % 1.4 % [facility] Basophils Abs 0.1 0.0 - 0.1 x10(3)/[facility] Immature Gran % 0.20 % [facility] Comment: Immature granulocytes(IG's)percentage and absolute count will include metamyelocytes, myelocytes, and promyelocytes. Blood smears from CBCs yielding IG's will be scanned manually for concordance. If this scan disagrees with the automated IG or if promyelocytes are noted, a manual differential will be performed. Raya Gran Abs 0.01 0.00 - 0.04 x10(3)/[facility] Blood 11/06/2023 7:37 AM EDT 11/06/2023 7:49 AM EDT Narrative Resulting Agency Comment Spec In Lab Jovani Richardson MD HEMATOLOGY ORDERABLE S [facility] [place] [address] * Gold Tube HOLD (11/06/2023 7:37 AM EDT) [facility] Gold Hold Sample in lab. [facility] Blood No Charge / Unknown 11/06/2023 7:37 AM EDT 11/06/2023 7:49 AM EDT Jovani Richardson MD CHEMISTRY ORDERABLES Performing Organization Address City/[facility]/ZIP Co de Phone Number [facility] [place] [address] * Iron and TIBC (11/06/2023 7:37 AM EDT) Iron 80 45 - 160 mcg/dL [facility] TIBC 266 250 - 450 mcg/dL [facility] Iron Saturation 30 20 - 50 % [facility] Blood 11/06/2023 7:37 AM EDT 11/06/2023 7:49 AM EDT Narrative Resulting Agency Comment Spec In Lab Jovani Richardson MD CHEMISTRY ORDERABLES Performing Organization Address City/[facility]/ZIP Co de Phone Number [facility] [place] [address] * (ABNORMAL) Vitamin D, 25-Hydroxy (11/06/2023 7:37 AM EDT) 25-OH Vit D Total 20(L) 21 - 100 ng/mL [facility] 25-OH Vit D Interp Deficient [facility] Blood 11/06/2023 7:37 AM EDT 11/06/2023 7:49 AM EDT Narrative Resulting Agency Comment Spec In Lab Jovani Richardson MD CHEMISTRY ORDERABLES Performing Organization Address City/[facility]/ZIP Co de Phone Number [facility] [place] [address] * Uric acid (11/06/2023 7:37 AM EDT) Uric Acid 7.4 3.5 - 8.5 mg/dL [facility] Blood 11/06/2023 7:37 AM EDT 11/06/2023 7:49 AM EDT Narrative Resulting Agency Comment Spec In Lab Jovani Richardson MD CHEMISTRY ORDERABLES Performing Organization Address [facility]/ZIP Co de Phone Number [facility] [place] [address] * (ABNORMAL) Phosphorus (11/06/2023 7:37 AM EDT) Phosphorus 4.7(H) 2.5 - 4.5 mg/dL [facility] Blood 11/06/2023 7:37 AM EDT 11/06/2023 7:49 AM EDT Narrative Resulting Agency Comment Spec In Lab Jovani Richardson MD CHEMISTRY ORDERABLES Performing Organization Address [facility] Co de Phone Number [facility] [place] [address] * Ferritin (11/06/2023 7:37 AM EDT) Ferritin 97 31 - 409 ng/mL [facility] Comment: Please note that as of 05/01/2023, the reference intervals for Ferritin have been updated. Blood 11/06/2023 7:37 AM EDT 11/06/2023 7:49 AM EDT Narrative Resulting Agency Comment Spec In Lab Jovani Richardson MD CHEMISTRY ORDERABLES Performing Organization Address City/[facility] Co de Phone Number [facility] [place] [address] * Albumin Level (11/06/2023 7:37 AM EDT) Albumin 4.1 3.2 - 5.2 g/dL [facility] Blood 11/06/2023 7:37 AM EDT 11/06/2023 7:49 AM EDT Narrative Resulting Agency Comment Spec In Lab Jovani Richardson MD CHEMISTRY ORDERABLES [facility] [place] [address] * SCAN DOC: ULTRASOUND (09/26/2023 12:00 AM EDT) Anatomical Region Laterality Modality Other Narrative 09/26/2023 12:00 AM EDT Ordered by an unspecified provider. Scanning Provider MEDIA MGR SCAN EXT O RDR/RSLT * Film Library- Storage Only Ultrasound Study (09/25/2023 6:20 PM EDT) Narrative RAD - 09/25/2023 6:20 PM EDT This exam is auto-finalizing. It's purpose is for storage only. Slade Tran MD IMG FILM LIBRARY ORD ERABLES Performing Organization Address [facility] Co de Phone Number [place], [place] * Protein Electrophoresis, urine, random (09/23/2023) U Protein Ran 276 U Alb Conc, Random 69.2 U Albumin 191 U Globulin 85 U PEP Comments negative forfree light chains Urine 09/23/2023 Historical Provider URINE ORDERABLES * Protein Electrophoresis, serum (09/23/2023) Pathologist [facility] Total Prot Elec 6.6 Albumin Elect 61.9 Alpha1-Globul in 4.5 Alpha2-Globul in 12.3 Beta Globulin 10.3 SPEP Comments No apparent monoclonal protein seen on serum electrophoresis IgG 671 IgA 144 IgM 120 Blood 09/23/2023 Historical Provider CHEMISTRY ORDERAB LES from Last 3 Months Advance Directives Documents on File Type Date Recorded Patient Game Producer Expl anation Advance Directives and Livin g Will 07/26/2010 8:58 AM Care Teams Secondary Special Education Teacher Relationship Specialty Start Date End Date Govind Mendes PA [address] [place], [place] [id number] PCP - General Internal Medicine 11/06/23
--- OUTSIDE RECORDS SUMMARY | 2023-12-20 02:22 | XMS_ITS | Encounter Summary ---
Author Organization [facility] Address [address] [place] [address] Care Team Providers Care Baton Teacher Name Role Phone Jovani Wharton DO Primary Care Provider [phone] Jorge Chauhan MD Primary Care Provider Luis Lauren MD Primary Care Provider [phone] Slade Tran MD Primary Care Provider [phone] Reason for Visit * Reason Onset Date Comments Appointment Related 06/02/2021 Encounter Details Date Type Department Care Team (Late st Contact Info) Description 06/02/2021 Telephone [facility] Nephrology - [address] [address] Unknown, Provider, Appointment Related Social [...] on filedocumented in this encounter Care Teams Baton Teacher Relationship Specialty Start Date End Date Jovani Wharton DO [address] [place], [place] [id number] PCP - General 10/11/16 10/17/21 Jorge Chauhan MD [address] [place], [place] [phone] PCP - General Family Medicine - Primary Care 10/18/21 11/22/21 Luis Lauren MD [address] [place], [place] [phone] PCP - General Family Medicine - Primary Care 11/23/21 11/11/22 Slade Tran MD [facility] [place] [address] PCP - General 11/12/22 documented as of this encounter
--- OUTSIDE RECORDS SUMMARY | 2023-12-20 02:22 | XMS_ITS | Encounter Summary ---
Author Organization [facility] [place] [address] Care Team Providers Care Ceiling Cleaner Name Role Phone Govind Mendes Primary Care [...] 7:30 AM EDT Hospital [place] [address] Lawrence Gar MD [facility] DR GASTROENTER[place] [address] 01/02/2024 7:30 AM EDT - 01/02/2024 8:30 AM EDT [place] [phone] Lawrence Gar MD [facility] DR GASTROENTER[place] [address] EGD, UPPER GI ENDOSCOPY (WRVU 2.09) 11/17/2024 4:20 PM EDT Office [place] [address] Lawrence Gar MD [facility] [place] [address] Scheduled Procedures Name Priority Associated Diagnoses Date/Ti me EGD, UPPER GI ENDOSCOPY (WRVU 2.09) Sharma's esophagus with dysplasia 01/02/2024 7:30 AM EDT documented as of this encounter Visit Diagnoses Not on filedocumented in this encounter Care Teams Ceiling Cleaner Relationship Specialty Start Date End Date Govind Mendes [place] [place] [address] PCP - General Internal Medicine 11/06/23 documented as of this encounter
--- OUTSIDE RECORDS SUMMARY | 2023-12-20 02:22 | XMS_ITS | Encounter Summary ---
Author Organization [facility] [place] [address] Care Team Providers Care Stable Attendant Name Role Phone Govind Mendes Primary Care [...] 7:30 AM EDT Hospital Encounter [place] [address] Lawrence Gar MD [facility] DR [place]STR[place] [address] 01/02/2024 7:30 AM EDT - 01/02/2024 8:30 AM EDT Surgery [place] [phone] Lawrence Gar MD [facility] DR [place]STR[place] [address] EGD, UPPER GI ENDOSCOPY (WRVU 2.09) 11/17/2024 4:20 PM EDT Office Visit [place] [address] Lawrence Gar MD [facility] [place] [address] Scheduled Procedures Name Priority Associated Diagnoses Date/Ti me EGD, UPPER GI ENDOSCOPY (WRVU 2.09) Sharma's esophagus with dysplasia 01/02/2024 7:30 AM EDT documented as of this encounter Visit Diagnoses Not on filedocumented in this encounter Care Teams Stable Attendant Relationship Specialty Start Date End Date Govind Mendes [place] [place] [address] PCP - General Internal Medicine 11/06/23 documented as of this encounter
--- OUTSIDE RECORDS SUMMARY | 2023-12-20 02:22 | XMS_ITS | Encounter Summary ---
Author Organization [facility] Address [address] [place] [address] Care Team Providers Care Cutter Operator Helper Name Role Phone Jovani Wharton DO Primary Care Provider [phone] Reason for Visit * (Routine/Next Available) - Receiving Office to Obtain Authorization Specialty Diagnoses / Procedures Referred By Devaughn bobo Referred To Contact Procedures XR OUTSIDE IMAGES CHEST Unknown, Provider, Referral ID Status Reason Start Date Expiration Date Visits Requested Visits Authorized [id number] Receiving Office to Obtain Authorization 07/27/2021 1 1 Encounter Details Date Type Department Care Team (Latest Contact Info) Description 07/27/2021 12:18 EST Hospital Encounter [facility] Secondary Reads [place] Discharge Disposition: Home [...] on filedocumented in this encounter Care Teams Cutter Operator Helper Relationship Specialty Start Date End Date Jovani Wharton DO [address] [place] [address] PCP - General 10/11/16 10/17/21 documented as of this encounter
--- OUTSIDE RECORDS SUMMARY | 2023-12-20 02:22 | XMS_ITS | Encounter Summary ---
Author Organization [facility] [place] [address] Care Team Providers Care Pumper Head Name Role Phone Govind Mendes Primary Care Provider + Encounter Details Date Type Department Care Team (Late st Contact Info) Description 11/06/2023 Transcribe [place] [address] Govind Mendes PA [address] [place] [address] [place] [address] Secondary hyperparathyroidism, non-renal Social History [...] 7:30 AM EDT Hospital En[place] [address] Lawrence Gar MD [facility] GASTROENTER[place] [address] 01/02/2024 7:30 AM EDT - 01/02/2024 8:30 AM EDT [place] [address] Lawrence Gar MD [facility] DR GASTROENTEROLOG[place] [address] EGD, UPPER GI ENDOSCOPY (WRVU 2.09) 11/17/2024 4:20 PM EDT Office [place] [address] Lawrence Gar MD [facility] DR GASTROENTER[place] [address] Scheduled Orders Name Type Priority Associated Diagnoses [...] esophagus documented in this encounter Care Teams Pumper Head Relationship Specialty Start Date End Date Govind Mendes PA [facility] [place] [address] PCP - General Internal Medicine 11/06/23 documented as of this encounter
--- OUTSIDE RECORDS SUMMARY | 2023-12-20 02:22 | XMS_ITS | Encounter Summary ---
Author Organization [facility] [place] [address] Care Team Providers Care Soa Integration Architect Name Role Phone Govind Mendes Primary Care [...] 7:30 AM EDT Hospital [place] [address] Lawrence Gar MD [facility] DR GASTRO[place] [address] 01/02/2024 7:30 AM EDT - 01/02/2024 8:30 AM EDT [place] [phone] Lawrence Gar MD [facility] DR GASTROENTER[place] [address] EGD, UPPER GI ENDOSCOPY (WRVU 2.09) 11/17/2024 4:20 PM EDT Office [place] [address] Lawrence Gar MD [facility] [place] [address] Scheduled Procedures Name Priority Associated Diagnoses Date/Ti me EGD, UPPER GI ENDOSCOPY (WRVU 2.09) Sharma's esophagus with dysplasia 01/02/2024 7:30 AM EDT documented as of this encounter Visit Diagnoses Not on filedocumented in this encounter Care Teams Soa Integration Architect Relationship Specialty Start Date End Date Govind Mendes [place] [address] [place] [address] PCP - General Internal Medicine 11/06/23 documented as of this encounter
--- OUTSIDE RECORDS SUMMARY | 2023-12-20 02:22 | XMS_ITS | Encounter Summary ---
Author Organization [facility] Address [address] [place] [address] Care Team Providers Care Critical Care Physician Name Role Phone Jovani Wharton DO Primary Care Provider +1- [phone] Encounter Details Date Type Department Care Team (Late st Contact Info) Description 09/12/2018 Results Only [facility] [phone] Woodrow Saravia MD [address] [place] [address] Social History Tobacco Use Types [...] ? MATHEW LINK ? Accession #: ? [id number] ? : ? 1955 (Age: 63) ??M [...] (ASCP) 09/15/2018 4:09 PM End of Report [facility] 09/12/2018 15:4 7 EDT 09/15/2018 15:47 EDT Woodrow Saravia MD PATHOLOGY ORDERABLES [facility] [address] [place] [address] documented in this encounter Visit Diagnoses Not on filedocumented in this encounter Care Teams Critical Care Physician Relationship Specialty Start Date End Date Jovani Wharton DO [address] [place] [address] PCP - General 10/11/16 10/17/21 documented as of this encounter
--- OUTSIDE RECORDS SUMMARY | 2023-12-20 02:22 | XMS_ITS | Encounter Summary ---
[place] [address] Care Team Providers Care Multisensor Intelligence Officer Name Role Phone Govind Mendes Primary Care Provider + Encounter Details Date Type Department Care Team (Late st Contact Info) Description 12/02/2023 Telephone [place] [address] Nehal Ferrara Social History Tobacco Use Types [...] - 12/02/2023 8:21 AM EDT Mathew Mendez [id number] Diagnosis/Indication: barretts Please review patient chart to [...] procedure? No You must have a responsible libertarian who will drive you to your procedure, stay on campus for the entire duration of your procedure, and drive you home from your procedure. Who will likely be your spike driver for the procedure? *Please Verify the [...] 7:30 AM EDT Hospital En[place] [address] Lawrence Gar MD [facility] [place] [address] 01/02/2024 7:30 AM EDT - 01/02/2024 8:30 AM EDT [place] [address] Lawrence Gar MD [facility] [place] [address] EGD, UPPER GI ENDOSCOPY (WRVU 2.09) 11/17/2024 4:20 PM EDT Office [place] [address] Lawrence Gar MD [facility] [place] [address] Scheduled Procedures Name Priority Associated Diagnoses Date/Ti me EGD, UPPER GI ENDOSCOPY (WRVU 2.09) Sharma's esophagus with dysplasia 01/02/2024 7:30 AM EDT documented as of this encounter Visit Diagnoses Not on filedocumented in this encounter Care Teams Multisensor Intelligence Officer Relationship Specialty Start Date End Date Govind Mendes PA [facility] [place] [place] [address] PCP - General Internal Medicine 11/06/23 documented as of this encounter
--- OUTSIDE RECORDS SUMMARY | 2023-12-20 02:22 | XMS_ITS | Encounter Summary ---
Author Organization [facility] Address [address] [place] [address] Care Team Providers Care Engine Emission Technician Name Role Phone DioJovani liu Michel Primary Care Provider +1- [phone] Reason for Visit * (Routine/Next Available) - Receiving Office to Obtain Authorization Specialty Diagnoses / Procedures Referred By Devaughn bobo Referred To Contact Procedures CT OUTSIDE IMAGES BODY Imaging, External Referral ID Status Reason Start Date Expiration Date Visits Requested Visits Authorized [id number] Receiving Office to Obtain Authorization 07/23/2021 1 1 Encounter Details Date Type Department Care Team (Latest Contact Info) Description 07/23/2021 21:40 EST - 07/23/2021 23:59 EST Hospital Encounter [facility] [place] Discharge Disposition: Home [...] on filedocumented in this encounter Care Teams Engine Emission Technician Relationship Specialty Start Date End Date Jovani Wharton DO [address] [place] [address] PCP - General 10/11/16 10/17/21 documented as of this encounter
--- OUTSIDE RECORDS SUMMARY | 2023-12-20 02:22 | XMS_ITS | Encounter Summary ---
Author Organization [facility] Address [address] [place] [address] Care Team Providers Care Surgical Services Tech Name Role Phone Jovani Wharton Michel Primary Care Provider +1- [phone] Reason for Visit * (Routine/Next Available) - Receiving Office to Obtain Authorization Specialty Diagnoses / Procedures Referred By Devaughn bobo Referred To Contact Procedures XR OUTSIDE IMAGES BODY Imaging, External Referral ID Status Reason Start Date Expiration Date Visits Requested Visits Authorized [id number] Receiving Office to Obtain Authorization 07/26/2021 1 1 Encounter Details Date Type Department Care Team (Latest Contact Info) Description 07/26/2021 22:36 EST - 07/26/2021 23:59 EST Hospital Encounter [facility] Secondary [place] Discharge Disposition: [...] on filedocumented in this encounter Care Teams Surgical Services Tech Relationship Specialty Start Date End Date Jovani Wharton DO [address] [place] [address] PCP - General 10/11/16 10/17/21 documented as of this encounter
--- OUTSIDE RECORDS SUMMARY | 2023-12-20 02:22 | XMS_ITS | Encounter Summary ---
Author Organization [facility] [place] [address] Care Team Providers Care Pipe Threading Machine Operator Name Role Phone Govind Mendes Primary [...] COLONOSCOPY,SCREENING (WRVU 3.26) Lawrence Gar MD [facility] [place] [address] [facility] Referral ID Status Reason Start Date Expiration Date Visits Re quested Visits Authorized [id number] 1 1 Encounter Details Date Type Department Care Team (Late st Contact Info) Description 11/12/2023 11:00 AM EDT - 11/12/2023 12:00 PM EDT [place] [address] [facility] [place] [address] [facility] Social History Tobacco Use Types Packs/Day Years [...] occurs, please contact your Doctor. Please call [phone] before 8pm Mon-Fri with problems, questions or concerns. If you call after 8pm or on weekends, call the Hospital at [phone] and ask to speak to the Field Coordinator collection manager and the catalytic case operator will contact that person for you. [...] any problems. Where can you learn more? [facility] View your After Visit Summary and more online at [email or web address] If you would like to provide feedback about your hospital experience, please call the Office of Patient and Family Relations at . If you have received this After Visit Summary in error, please immediately return it in person to the department, or notify the [facility] Privacy Office by calling toll free at between the hours of 8AM and 5PM to arrange for our retrieval of the documents at no cost to you. Content Version: 12.2 ?? 1129-8847 [employer]. Care instructions adapted under license by [facility]. If you have questions about a medical condition or this instruction, always ask your healthcare professional. [employer] disclaims any warranty or liability for your [...] the day after the procedure, use an xemr-kiu-octngcw spray to numb your throat. Sucking on [...] occurs, please contact your Doctor. Please call [phone] before 8pm Mon-Fri with problems, questions or concerns. If you call after 8pm or on weekends, call the Hospital at [phone] and ask to speak to the Field Coordinator collection manager and the catalytic case operator will contact that person for you. When should you call for help? Call [phone] anytime you think you may need emergency [...] any problems. Where can you learn more? [facility] View your After Visit Summary and more online at [email or web address] If you would like to provide feedback about your hospital experience, please call the Office of Patient and Family Relations at . If you have received this After Visit Summary in error, please immediately return it in person to the department, or notify the [facility] Privacy Office by calling toll free at between the hours of 8AM and 5PM to arrange for our retrieval of the documents at no cost to you. Content Version: 12.2 ?? 9109-4274 [employer]. Care instructions adapted under license by [facility]. If you have questions about a medical condition or this instruction, always ask your healthcare professional. [employer] disclaims any warranty or liability for your [...] the day after the procedure, use an cgpt-mzh-qpfmlbp spray to numb your throat. Sucking on [...] occurs, please contact your Doctor. Please call [phone] before 8pm Mon-Fri with problems, questions or concerns. If you call after 8pm or on weekends, call the Hospital at [phone] and ask to speak to the Field Coordinator collection manager and the catalytic case operator will contact that person for you. When should you call for help? Call [phone] anytime you think you may need emergency [...] any problems. Where can you learn more? [facility] View your After Visit Summary and more online at [email or web address] If you would like to provide feedback about your hospital experience, please call the Office of Patient and Family Relations at . If you have received this After Visit Summary in error, please immediately return it in person to the department, or notify the [facility] Privacy Office by calling toll free at between the hours of 8AM and 5PM to arrange for our retrieval of the documents at no cost to you. Content Version: 12.2 ?? 4317-4325 [employer]. Care instructions adapted under license by [facility]. If you have questions about a medical condition or this instruction, always ask your healthcare professional. [employer] disclaims any warranty or liability for your [...] for Sharma's ablation within next 1-2 mos. Roslyn rotary5 yrs. documented in this encounter H&P [...] 7:30 AM EDT Hospital [place] [address] [facility] [place] [address] 01/02/2024 7:30 AM EDT - 01/02/2024 8:30 AM EDT [place] [address] [facility] [place] [address] EGD, UPPER GI ENDOSCOPY (WRVU 2.09) 11/17/2024 4:20 PM EDT Office [place] [address] [facility] [place] [address] Scheduled Procedures Name Priority Associated Diagnoses Date/Ti me EGD, UPPER GI ENDOSCOPY (WRVU 2.09) Sharma's esophagus with dysplasia 01/02/2024 7:30 AM EDT documented as of this encounter Procedures Procedure Name Priority Date/Time Associated Diagnosis Comments SURGICAL PATHOLOGY REPORT Routine 11/12/2023 11:23 AM EDT SPECIMEN TO PATHOLOGY Routine 11/12/2023 11:23 AM EDT SPECIMEN TO PATHOLOGY Routine 11/12/2023 11:23 AM EDT Colonoscopy, Remv Lesn, Snare ([id number]) 11/12/2023 10:48 AM EDT 3 year Upper Gi Endoscopy, Biopsy ([id number]) 11/12/2023 10:48 AM EDT 3 year UPPER GI ENDOSCOPY Routine 11/12/2023 10 :28 AM EDT COLONOSCOPY Routine 11/12/2023 10:27 AM EDT documented in this encounter Results * (ABNORMAL) Surgical Pathology Report (11/12/2023 11:23 AM EDT) FINAL DIAGNOSIS (AP) [id number] ? Location: 4T; EA06; A The signing [...] Shyla Verified: ??11/26/2023 14:50 ??Pathologist Performed at: ??-[facility] Dept. of Pathology, [place] [address] Bone Process Operator: Deana Lopez MD, AP, ??CLIA Certificate: [id number] DISCUSSION The case was reviewed at the [...] (1) CLINICAL INFORMATION 68-year-old male, follow-up short-segment Shrama's and colon polyps SPECIMEN PROCESSING A - [...] labeled B1. ??ajw(A) 11/26/2023 2:50 PM EDT [facility] 11/12/2023 11:2 3 AM EDT Lawrence Gar MD PATHOLOGY/CYTOLOGY O SONIYA [facility] [place] [address] * Specimen to Pathology (11/12/2023 11:23 AM EDT) AP Specimen 11/12/2023 11:2 3 AM EDT 11/12/2023 11:23 AM EDT Narrative [facility] - 11/12/2023 11:23 AM EDT Specimen requisition ordered. ??Separate Pathology report to follow Lawrence Gar MD PATHOLOGY/CYTOLOGY O SONIYA Performing Organization Address [facility] Co de Phone Number [facility] [place] [address] * Specimen to Pathology (11/12/2023 11:23 AM EDT) AP Specimen 11/12/2023 11:2 3 AM EDT 11/12/2023 11:23 AM EDT Narrative [facility] - 11/12/2023 11:23 AM EDT Specimen requisition ordered. ??Separate Pathology report to follow Lawrence Gar MD PATHOLOGY/CYTOLOGY O JIMAGCXIN Performing Organization Address [facility] [place] [address] * UPPER GI ENDOSCOPY (11/12/2023 10:28 AM EDT) UPPER GI ENDOSCOPY [facility] Endoscopy ___ Procedure Date: 11/12/2023 10:28 AM ? Patient Name: Mathew Mendez ? [facility]: [id number] ? Date of : 1955 ? Age: 68 ? Order #: [id number] ? Instrument Name: [id number] ? ___ Procedure: ? Upper GI endoscopy [...] * COLONOSCOPY (11/12/2023 10:27 AM EDT) COLONOSCOPY [facility] Endoscopy ___ Procedure Date: 11/12/2023 10:27 AM ? Patient Name: Mathew Mendez ? Date of : 1955 ? Age: 68 ? Order #: [id number] ? Instrument Name: [id number] ? ___ Procedure: ? Colonoscopy Indications: ? High risk colon cancer ? surveillance: Personal history of ? colonic polyps Providers: ? Lawrence Gar MD, Adore Wilson ? Todd Vanegas MD: ?Slade Tran Medicines: ? Propofol per [...] ? was evaluated using the BBPS ? (Pearl Bowel Preparation Scale) ? with scores of: [...] CRNA) documented in this encounter Care Teams Pipe Threading Machine Operator Relationship Specialty Start Date End Date Govind Mendes PA [facility] [place] [address] PCP - General Internal Medicine 11/06/23 documented as of this encounter
--- OUTSIDE RECORDS SUMMARY | 2023-12-20 02:22 | XMS_ITS | Encounter Summary ---
Author Organization [facility] [place] [address] Care Team Providers Care Metal Stud Framer Name Role Phone Govind Mendes Primary Care Provider + Encounter Details Date Type Department Care Team (Late st Contact Info) Description 12/11/2023 External Results Ne[place] [address] Karol Iverson RN Social History Tobacco Use [...] EDT Hospital En[place] [address] Lawrence Gar MD [facility] [place] [address] 01/02/2024 7:30 AM EDT - 01/02/2024 8:30 AM EDT Surgery [place] [address] Lawrence Gar MD [facility] [place] [address] EGD, UPPER GI ENDOSCOPY (WRVU 2.09) 11/17/2024 4:20 PM EDT Office [place] [address] Lawrence Gar MD [facility] [place] [address] Scheduled Procedures Name Priority Associated Diagnoses Date/Ti me EGD, UPPER GI ENDOSCOPY (WRVU 2.09) Sharma's esophagus with dysplasia 01/02/2024 7:30 AM EDT documented as of this encounter Procedures Procedure Name Priority Date/Time Associated Diagnosis Comments BASIC METABOLIC PANEL (NON-FASTING) Routine 12/10/2023 documented in this encounter Results * Basic Metabolic Panel (non-fasting) (12/10/2023) Glucose Lvl 95 BUN 61 Creatinine 4.4 Estimated GFR 13.77 Sodium 142 Potassium 5.1 Chloride 109 CO2 19 Calcium 8.6 Blood 12/10/2023 Historical Provider CHEMISTRY ORDERAB LES documented in this encounter Visit Diagnoses Not on filedocumented in this encounter Care Teams Metal Stud Framer Relationship Specialty Start Date End Date Govind [place] [address] [place] [address] PCP - General Internal Medicine 11/06/23 documented as of this encounter
--- OUTSIDE RECORDS SUMMARY | 2023-12-20 02:22 | XMS_ITS | Encounter Summary ---
[place] [address] Care Team Providers Care Nitroglycerin Supervisor Name Role Phone Govind Mendes Primary Care Provider + Encounter Details Date Type Department Care Team (Late st Contact Info) Description 11/26/2023 Telephone [place] [address] Lizet Hayward RN Social History Tobacco Use [...] 7:30 AM EDT Hospital En[place] [address] Lawrence Gar MD [facility] [place] [address] 01/02/2024 7:30 AM EDT - 01/02/2024 8:30 AM EDT [place] [address] Lawrence Gar MD [facility] [place] [address] EGD, UPPER GI ENDOSCOPY (WRVU 2.09) 11/17/2024 4:20 PM EDT Office [place] [address] Lawrence Gar MD [facility] [place] [address] Scheduled Procedures Name Priority Associated Diagnoses Date/Ti me EGD, UPPER GI ENDOSCOPY (WRVU 2.09) Sharma's esophagus with dysplasia 01/02/2024 7:30 AM EDT documented as of this encounter Visit Diagnoses Not on filedocumented in this encounter Care Teams Nitroglycerin Supervisor Relationship Specialty Start Date End Date Govind Mendes PA [address] [place] [address] PCP - General Internal Medicine 11/06/23 documented as of this encounter
--- OUTSIDE RECORDS SUMMARY | 2023-12-20 02:22 | XMS_ITS | Encounter Summary ---
Author Organization Formerly [facility] [place] [address] Care Team Providers Care Furrier Designer Name Role Phone Govind Mendes Primary Care [...] 2.09) COLONOSCOPY,SCREENING (WRVU 3.26) Lawrence Gar MD [facility] [place] [address] [facility] Referral ID Status Reason Start Date Expiration Date Visits Re quested Visits Authorized [id number] 1 1 Encounter Details Date Type Department Care Team (Latest Contact Info) Description 11/12/2023 9:46 AM EDT - 11/12/2023 12:10 PM EDT Hospital Encounter [place] [address] Lawrence Gar MD [facility] [place] [address] [phone] (work) Discharge Disposition: Home Social History Tobacco [...] occurs, please contact your Doctor. Please call [phone] before 8pm Mon-Fri with problems, questions or concerns. If you call after 8pm or on weekends, call the Hospital at [phone] and ask to speak to the [employer] security operations center operator and the locker operator will contact that person for you. When should you call for help? Call [phone] anytime you think you may need emergency [...] any problems. Where can you learn more? [facility] View your After Visit Summary and more online at [email or web address] If you would like to provide feedback about your hospital experience, please call the Office of Patient and Family Relations at . If you have received this After Visit Summary in error, please immediately return it in person to the department, or notify the [facility] Privacy Office by calling toll free at between the hours of 8AM and 5PM to arrange for our retrieval of the documents at no cost to you. Content Version: 12.2 ?? 4797-0420 [employer]. Care instructions adapted under license by [facility]. If you have questions about a medical condition or this instruction, always ask your healthcare professional. [employer] disclaims any warranty or liability for your [...] the day after the procedure, use an twmw-bzj-hkzedhe spray to numb your throat. Sucking on [...] occurs, please contact your Doctor. Please call [phone] before 8pm Mon-Fri with problems, questions or concerns. If you call after 8pm or on weekends, call the Hospital at [phone] and ask to speak to the [employer] security operations center operator and the locker operator will contact that person for you. When should you call for help? Call [phone] anytime you think you may need emergency [...] any problems. Where can you learn more? [facility] View your After Visit Summary and more online at [email or web address] If you would like to provide feedback about your hospital experience, please call the Office of Patient and Family Relations at . If you have received this After Visit Summary in error, please immediately return it in person to the department, or notify the [facility] Privacy Office by calling toll free at between the hours of 8AM and 5PM to arrange for our retrieval of the documents at no cost to you. Content Version: 12.2 ?? 8552-2362 [employer]. Care instructions adapted under license by [facility]. If you have questions about a medical condition or this instruction, always ask your healthcare professional. [employer] disclaims any warranty or liability for your [...] the day after the procedure, use an jrgd-rpx-ckaqdfi spray to numb your throat. Sucking on [...] occurs, please contact your Doctor. Please call [phone] before 8pm Mon-Fri with problems, questions or concerns. If you call after 8pm or on weekends, call the Hospital at [phone] and ask to speak to the [employer] security operations center operator and the locker operator will contact that person for you. When should you call for help? Call [phone] anytime you think you may need emergency [...] any problems. Where can you learn more? [facility] View your After Visit Summary and more online at [email or web address] If you would like to provide feedback about your hospital experience, please call the Office of Patient and Family Relations at . If you have received this After Visit Summary in error, please immediately return it in person to the department, or notify the [facility] Privacy Office by calling toll free at between the hours of 8AM and 5PM to arrange for our retrieval of the documents at no cost to you. Content Version: 12.2 ?? 5210-5404 [employer]. Care instructions adapted under license by [facility]. If you have questions about a medical condition or this instruction, always ask your healthcare professional. [employer] disclaims any warranty or liability for your [...] for Sharma's ablation within next 1-2 mos. [employer] yrs. documented in this encounter H&P [...] 7:30 AM EDT Hospital Encounter Gastroenterology at [place] [id number] Lawrence Gar MD [facility] [place] [address] 01/02/2024 7:30 AM EDT - 01/02/2024 8:30 AM EDT Surgery [place] [address] Lawrence Gar MD [facility] [place] [address] EGD, UPPER GI ENDOSCOPY (WRVU 2.09) 11/17/2024 4:20 PM EDT Office Visit [place] [address] Lawrence Gar MD [facility] [place] [address] Scheduled Procedures Name Priority Associated Diagnoses Date/Ti me EGD, UPPER GI ENDOSCOPY (WRVU 2.09) Sharma's esophagus with dysplasia 01/02/2024 7:30 AM EDT documented as of this encounter Procedures Procedure Name Priority Date/Time Associated Diagnosis Comments SURGICAL PATHOLOGY REPORT Routine 11/12/2023 11:23 AM EDT SPECIMEN TO PATHOLOGY Routine 11/12/2023 11:23 AM EDT SPECIMEN TO PATHOLOGY Routine 11/12/2023 11:23 AM EDT Colonoscopy, Remv Lesn, Snare ([id number]) 11/12/2023 10:48 AM EDT 3 year Upper Gi Endoscopy, Biopsy ([id number]) 11/12/2023 10:48 AM EDT 3 year UPPER GI ENDOSCOPY Routine 11/12/2023 10 :28 AM EDT COLONOSCOPY Routine 11/12/2023 10:27 AM EDT documented in this encounter Results * (ABNORMAL) Surgical Pathology Report (11/12/2023 11:23 AM EDT) FINAL DIAGNOSIS (AP) [id number] ? Location: 4T; 06; A The signing [...] CR-PX Electronically signed by: ?Amanda HENDRICKS PhD, Syhla Verified: ??11/26/2023 14:50 ??Pathologist Performed at: ??-[facility] [place], [place] [address] Wirer Helper: Deana Lopez MD, FCAP, ??CLIA Certificate: [id number] DISCUSSION The case was reviewed at the [...] labeled B1. ??ajw(A) 11/26/2023 2:50 PM EDT [facility] 11/12/2023 11:2 3 AM EDT Lawrence Gar MD PATHOLOGY/CYTOLOGY O SONIYA Performing Organization Address [facility] Co de Phone Number [facility] [place] [address] * Specimen to Pathology (11/12/2023 11:23 AM EDT) AP Specimen 11/12/2023 11:2 3 AM EDT 11/12/2023 11:23 AM EDT Narrative [facility] - 11/12/2023 11:23 AM EDT Specimen requisition ordered. ??Separate Pathology report to follow Lawrence Gar MD PATHOLOGY/CYTOLOGY O SONIYA Performing Organization Address [facility] Co de Phone Number [facility] [place] [address] * Specimen to Pathology (11/12/2023 11:23 AM EDT) AP Specimen 11/12/2023 11:2 3 AM EDT 11/12/2023 11:23 AM EDT Narrative [facility] - 11/12/2023 11:23 AM EDT Specimen requisition ordered. ??Separate Pathology report to follow Lawrence Gar MD PATHOLOGY/CYTOLOGY O SONIYA Performing Organization Address [facility] [place] [address] * UPPER GI ENDOSCOPY (11/12/2023 10:28 AM EDT) UPPER GI ENDOSCOPY [facility] Endoscopy ___ Procedure Date: 11/12/2023 10:28 AM ? Patient Name: Mathew Mendez ? [facility]: [id number] ? Date of : 1955 ? Age: 68 ? Order #: [id number] ? Instrument Name: [id number]- [id number] ? ___ Procedure: ? Upper GI endoscopy Indications: ? Follow-up of Sharma's esophagus Providers: ? Lawrence Gar MD, Adore Wilson ? Todd Vanegas MD: ?Govind Mendes [facility]: ? Propofol per Anesthesia Complications: ? [...] * COLONOSCOPY (11/12/2023 10:27 AM EDT) COLONOSCOPY [facility] Endoscopy ___ Procedure Date: 11/12/2023 10:27 AM ? Patient Name: Mathew Mendez ? Date of : 1955 ? Age: 68 ? Order #: [id number] ? Instrument Name: [id number]- [id number] ? ___ Procedure: ? Colonoscopy Indications: ? [...] ? was evaluated using the BBPS ? (Shelbiana Bowel Preparation Scale) ? with scores of: [...] CRNA) documented in this encounter Care Teams Furrier Designer Relationship Specialty Start Date End Date Govind Mendes [place] [address] [place] [address] PCP - General Internal Medicine 11/06/23 documented as of this encounter
--- OUTSIDE RECORDS SUMMARY | 2023-12-20 02:22 | XMS_ITS | Encounter Summary ---
Author Organization [facility] Address [facility] [place] [address] Care Team Providers Care Egg Breaker Name Role Phone Govind Mendes Primary Care Provider + Encounter Details Date Type Department Care Team (Late st Contact Info) Description 11/19/2023 4:40 PM EDT Office Visit [place] [address] Lawrence Gar MD [facility] [place] [address] Alcohol-induced chronic pancreatitis; Sharma's esophagus with dysplasia [...] Sharma's and colon polyps. Lawrence Gar MD edge banding off bearer Director, GI Endoscopy Section of Gastroenterology [place] [address] Cc:[place] [address] [place] [address] documented in this encounter Plan of Treatment Upcoming Encounters Date Type Department Care Team (Latest Contact Info) Description 01/02/2024 7:30 AM EDT Hospital Encounter [place] [address] Lawrence Gar MD [facility] [place] [address] 01/02/2024 7:30 AM EDT - 01/02/2024 8:30 AM EDT Surgery [place] [address] Lawrence Gar MD [facility] [place] [address] EGD, UPPER GI ENDOSCOPY (WRVU 2.09) 11/17/2024 4:20 PM EDT Office [place] [address] Lawrence Gar MD [facility] [place] [address] Scheduled Procedures Name Priority Associated Diagnoses Date/Ti me EGD, UPPER GI ENDOSCOPY (WRVU 2.09) Sharma's esophagus with dysplasia 01/02/2024 7:30 AM EDT documented as of this encounter Visit Diagnoses Diagnosis Alcohol-induced chronic pancreatitis Chronic pancreatitis Sharma's esophagus with dysplasia Sharma's esophagus Sharma's esophagus with dysplasia Sharma's esophagus documented in this encounter Care Teams Egg Breaker Relationship Specialty Start Date End Date Govind Mendes PA [facility] [place] [address] [place] [address] PCP - General Internal Medicine 11/06/23 documented as of this encounter
--- OUTSIDE RECORDS SUMMARY | 2023-12-20 02:22 | XMS_ITS | Encounter Summary ---
Author Organization [facility] Address [address] [place] [address] Care Team Providers Care Senior Application Security Consultant Name Role Phone Jovani Wharton Michel Primary Care Provider [phone]- [phone] Reason for Visit * (Routine/Next Available) - Receiving Office to Obtain Authorization Specialty Diagnoses / Procedures Referred By Devaughn bobo Referred To Contact Procedures XR OUTSIDE IMAGES CHEST Imaging, External Referral ID Status Reason Start Date Expiration Date Visits Requested Visits Authorized [id number] Receiving Office to Obtain Authorization 07/26/2021 1 1 Encounter Details Date Type Department Care Team (Latest Contact Info) Description 07/26/2021 9:27 EST - 07/26/2021 22:35 EST Hospital Encounter [facility] Secondary Reads [place] Discharge Disposition: Home or [...] filedocumented in this encounter Care Teams Senior Application Security Consultant Relationship Specialty Start Date End Date Jovani Wharton DO [address] [place] [address] PCP - General 10/11/16 10/17/21 documented as of this encounter
--- OUTSIDE RECORDS SUMMARY | 2023-12-20 02:22 | XMS_ITS | Encounter Summary ---
Author Organization [facility] Address [address] [place] [address] Care Team Providers Care Sdet Name Role Phone Jovani Wharton DO Primary Care Provider [phone]- [phone] Jorge Chauhan MD Primary Care Provider Luis Lauren MD Primary Care Provider +1 -[phone] Slade Tran MD Primary Care Provider [phone] Encounter Details Date Type Department Care Team (Late st Contact Info) Description 03/03/2021 Lab Requisition [facility] Pathology & Laboratory Medicine - [facility] [address], [place] [id number] Outr Resulting Lab, Provider Social History Tobacco [...] MICROBIOLOGY - GENERAL ORDERABLES Performing Organization Address City/[facility]/ZIP Co de Phone Number [facility] [address] [place] [address] * COVID-19 TESTING (03/02/2021 13:41 EDT) COVID-19 rt-PCR Result Negative Negative 03/04/2021 11:[address] [facility] Comment: This test has [...] performed using the shama SARS-CoV-2 assay ([employer] on the Shama 6800 System Performing Lab Shama 68[address] [facility] Lab 03/04/2021 11:[address] [facility] Swab 03/02/2021 13:4 1 EDT 03/03/2021 16:26 EDT Provider Outr Resulting Lab MICROBIOLOGY - GENERAL ORDERABLES [facility] [address] [place] [address] documented in this encounter Visit Diagnoses Not on filedocumented in this encounter Care Teams Sdet Relationship Specialty Start Date End Date Jovani Wharton DO [address] [place] [address] PCP - General 10/11/16 10/17/21 Jorge Chauhan MD [address] [place], [place] [address] PCP - General Family Medicine - Primary Care 10/18/21 11/22/21 Luis Lauren MD [address] [place] [address] PCP - General Family Medicine - Primary Care 11/23/21 11/11/22 Slade Tran MD [address] [place], [place] [address] [address] PCP - General 11/12/22 documented as of this encounter
--- OUTSIDE RECORDS SUMMARY | 2023-12-20 02:22 | XMS_ITS | Encounter Summary ---
Author Organization Formerly [facility] Address [facility] [place] [address] Care Team Providers Care Membership Coordinator Name Role Phone Govind Mendes Primary Care Provider + Encounter Details Date Type Department Care Team (Latest Contact Info) Description 11/06/2023 8:00 AM EDT Office Visit [place] [address] Jovani Richardson MD [facility] [place] [address] A, Nurse Clinician None CKD (chronic kidney [...] feeling well. Please call. Lizet Hayward MBA, charge weigher Kidney Disease Nurse Clinician [facility] Nephrology documented in this encounter Progress Notes * Lizet Hayward RN - 11/06/2023 8:00 AM EDT [facility] [address] [place] [address] Reason for Clinic Visit: Systems Review and [...] need one but it is an option. MD/SWITCHBOARD CLERK A/P: Cr stable. Risk factor modification as [...] body to make more red blood cells. MD/SWITCHBOARD CLERK A/P: will start aranesp when hgb falls [...] may be too high of a dose. MD/SWITCHBOARD CLERK A/P: increase lisinopril to 20mg daily Problem: Proteinuria Prot/Cre Ratio (ratio) Date Value 11/06/2023 2.6 Goal: <0.2mg/mg RN Notes: Increase Lisinopril to 20mg daily MD/SWITCHBOARD CLERK A/P: increase lisinopril, continue SGLT-2i Problem: Bone [...] carbonate Goal: 8.5-10.5mg/dl RN Notes: No changes MD/SWITCHBOARD CLERK A/P: continue calcitriol Problem: Nutrition Albumin (g/dL) Date Value 11/06/2023 4.1 08/30/2023 4.4 01/21/2023 4.3 Goal: >/= 4.0 gm/dl Body mass index is 26.49 kg/m??. Goal: 20-25 kg/m2 RN Notes: Encouraged healthy eating MD/SWITCHBOARD CLERK A/P: Problem: Dyslipidemia No results found for: LDLCHOL Goal: <100 mg/dl No results found for: TRIG Goal: <150 mg/dl not on statin not on ezetimibe RN Notes: No changes MD/SWITCHBOARD CLERK A/P: defer lipid management to PCP Return to CKD clinic: 3 months documented in this encounter Plan of Treatment Upcoming Encounters Date Type Department Care Team (Latest Contact Info) Description 01/02/2024 7:30 AM EDT Hospital Encounter [place] [address] Lawrence Gar MD [facility] [place] [address] 01/02/2024 7:30 AM EDT - 01/02/2024 8:30 AM EDT Surgery [place] [address] Lawrence Gar MD [facility] [place] [address] EGD, UPPER GI ENDOSCOPY (WRVU 2.09) 11/17/2024 4:20 PM EDT Office [place] [address] Lawrence Gar MD [facility] [place] [address] Scheduled Orders Name Type Priority Associated Diagnoses [...] esophagus documented in this encounter Care Teams Membership Coordinator Relationship Specialty Start Date End Date Govind Mendes PA [address] [place] [address] PCP - General Internal Medicine 11/06/23 documented as of this encounter
--- OUTSIDE RECORDS SUMMARY | 2023-12-20 02:22 | XMS_ITS | Encounter Summary ---
Author Organization [facility] Address [address] [place] [address] Care Team Providers Care Sod Farmer Name Role Phone Jovani Wharton DO Primary Care Provider [phone] Jorge Chauhan MD Primary Care Provider Luis Lauren MD Primary Care Provider [phone] Slade Tran MD Primary Care Provider [phone] Encounter Details Date Type Department Care Team (Late st Contact Info) Description 08/09/2020 Lab Requisition [facility] Pathology & Laboratory Medicine - [facility] [address] [place], [place] [id number] Outr Resulting Lab, Provider Social History Tobacco [...] 0.0 - 4.5 ng/mL 08/09/2020 22:41 EDT [facility] Blood VENOUS BLOOD / Unknown 08/09/2020 9:12 EDT 08/09/2020 21:13 EDT Narrative [facility] - 08/09/2020 22:41 EDT NOTE: Serum PSA concentration should not be interpreted as absolute evidence for the presence or absence of malignant disease. Assayed on Siemens ADVIA Glowing Plantaur XPT using chemiluminescent technology.??Values obtained by using different assay methods cannot be used interchangeably. Provider Outr Resulting Lab CHEMISTRY & BLOOD GAS ORDERABLES [facility] [address] [place] [address] documented in this encounter Visit Diagnoses Not on filedocumented in this encounter Care Teams Sod Farmer Relationship Specialty Start Date End Date Jovani Wharton DO [address] [place], [place] [address] PCP - General 10/11/16 10/17/21 Jorge Chauhan MD [address] [place], [place] [address] PCP - General Family Medicine - Primary Care 10/18/21 11/22/21 Luis Lauren MD [address] [place], [place] [address] PCP - General Family Medicine - Primary Care 11/23/21 11/11/22 Slade Tran MD [facility] [place] [address] PCP - General 11/12/22 documented as of this encounter
--- OUTSIDE RECORDS SUMMARY | 2023-12-20 02:22 | XMS_ITS | Encounter Summary ---
[place] [address] Care Team Providers Care Park Maintenance Technician Name Role Phone Govind Mendes Primary Care Provider + Encounter Details Date Type Department Care Team (Late st Contact Info) Description 12/10/2023 Telephone [place] [address] Karol Iverson RN Social History Tobacco Use [...] Telephone Encounter - Karol Iverson RN - 12/10/2023 3:51 PM EDT S/O: Call from [facility] with critical result. BUN 61 and Creatinine 4.4. Full BMP to follow. P: Above sent to Dr Richardson for review and recommendation documented in this encounter Plan of Treatment Upcoming Encounters Date Type Department Care Team (Latest Contact Info) Description 01/02/2024 7:30 AM EDT Hospital [place] [address] Lawrence Gar MD [facility] [place] [address] 01/02/2024 7:30 AM EDT - 01/02/2024 8:30 AM EDT [place] [address] Lawrence Gar MD [facility] [place] [address] EGD, UPPER GI ENDOSCOPY (WRVU 2.09) 11/17/2024 4:20 PM EDT Office [place] [address] Lawrence Gar MD [facility] [place] [address] Scheduled Procedures Name Priority Associated Diagnoses Date/Ti me EGD, UPPER GI ENDOSCOPY (WRVU 2.09) Sharma's esophagus with dysplasia 01/02/2024 7:30 AM EDT documented as of this encounter Visit Diagnoses Not on filedocumented in this encounter Care Teams Park Maintenance Technician Relationship Specialty Start Date End Date Govind Mendes [place] [address] PCP - General Internal Medicine 11/06/23 documented as of this encounter
--- OUTSIDE RECORDS SUMMARY | 2023-12-20 02:22 | XMS_ITS | Encounter Summary ---
Author Organization [facility] Address [address] [place] [address] Care Team Providers Care Environmental Coordinator Name Role Phone Jovani Wharton DO Primary Care Provider [phone]- [phone] Reason for Visit * (Routine/Next Available) - Receiving Office to Obtain Authorization Specialty Diagnoses / Procedures Referred By Devaughn bobo Referred To Contact Procedures XR OUTSIDE IMAGES CHEST Imaging, External Referral ID Status Reason Start Date Expiration Date Visits Requested Visits Authorized [id number] Receiving Office to Obtain Authorization 07/26/2021 1 1 Encounter Details Date Type Department Care Team (Latest Contact Info) Description 07/25/2021 - 07/25/2021 23:59 EST Hospital Encounter [facility] Secondary Reads [place] Discharge Disposition: Home [...] on filedocumented in this encounter Care Teams Environmental Coordinator Relationship Specialty Start Date End Date Jovani Wharton DO [address] [place] [address] PCP - General 10/11/16 10/17/21 documented as of this encounter
--- OUTSIDE RECORDS SUMMARY | 2023-12-20 02:22 | XMS_ITS | Encounter Summary ---
Author Organization [facility] Address [address] [place] [address] Care Team Providers Care Crutch Maker Name Role Phone Jovani Wharton DO Primary Care Provider [phone]- [phone] Reason for Visit * (Routine/Next Available) - Receiving Office to Obtain Authorization Specialty Diagnoses / Procedures Referred By Devaughn bobo Referred To Contact Procedures XR OUTSIDE IMAGES CHEST Unknown, Provider, Referral ID Status Reason Start Date Expiration Date Visits Requested Visits Authorized [id number] Receiving Office to Obtain Authorization 07/27/2021 1 1 Encounter Details Date Type Department Care Team (Latest Contact Info) Description 07/26/2021 - 07/26/2021 9:26 EST Hospital Encounter [facility] Secondary Reads [place] Discharge Disposition: [...] on filedocumented in this encounter Care Teams Crutch Maker Relationship Specialty Start Date End Date Jovani Wharton DO [address] [place] [address] PCP - General 10/11/16 10/17/21 documented as of this encounter
--- OUTSIDE RECORDS SUMMARY | 2023-12-20 02:22 | XMS_ITS | Encounter Summary ---
Author Organization [facility] Address [address] [place] [address] Care Team Providers Care Web Press Operator Assistant Name Role Phone Unavailable Primary Care Provider Unavailabl e Encounter Details Date Type Department Care Team (Late st Contact Info) Description 09/24/2007 Results Only [facility] - Maple conversion [address] [place] [address] Jovani Wharton, DO [address] [place], [place] [address] Social History Tobacco Use Types Packs/Day Years [...] ? MATHEW LINK ? Accession #: ? [id number] ? : ? 1955 (Age: 52) ??M [...] concomitant vacuolar change and keratinocyte necrosis. ??(Dr. Walton)/[facility] Document reviewed and electronically signed [...] is submitted intact in one cassette. ??(Lisset Gorman)/[facility] End of Report JACOBO RODGERS 09/24/2007 09/24/2007 17: 40 EDT Jovani Wharton DO PATHOLOGY ORDERABL ES [facility] [address] [place] [address] documented in this encounter Visit Diagnoses Not on filedocumented in this encounter
--- OUTSIDE RECORDS SUMMARY | 2023-12-20 02:22 | XMS_ITS | Encounter Summary ---
Author Organization Formerly [facility] [place] [address] Care Team Providers Care Asw/Asuw Tactical Air Controller Name Role Phone Govind Mendes Primary Care Provider + Encounter Details Date Type Department Care Team (Latest Contact Info) Description 11/06/2023 7:20 AM EDT Laboratory Appointment Lab [address] [place] [phone] CKD (chronic kidney disease) stage 4, GFR [...] 7:30 AM EDT Hospital [place] [phone] Lawrence Gar MD [facility] [place] [address] 01/02/2024 7:30 AM EDT - 01/02/2024 8:30 AM EDT [place] [address] Lawrence Gar MD [facility] DR [place]STRO[place] [address] EGD, UPPER GI ENDOSCOPY (WRVU 2.09) 11/17/2024 4:20 PM EDT Office [place] [address] Lawrence Gar MD [facility] DR [place] [address] Scheduled Procedures Name Priority Associated Diagnoses Date/Ti [...] Protein Ran 179(H) 0 - 12 mg/dL [facility] Prot/Cre Ratio 2.6 ratio [facility] Urine 11/06/2023 7:48 AM EDT 11/06/2023 7:58 AM EDT Narrative Resulting Agency Comment Spec In Lab Jovani Richardson MD URINE ORDERABLES Performing Organization Address City/[facility]/ZIP Co de Phone Number [facility] [place] [address] * Gold Tube HOLD (11/06/2023 7:37 AM EDT) Gold Hold Sample in lab. [facility] Blood No Charge / Unknown 11/06/2023 7:37 AM EDT 11/06/2023 7:49 AM EDT Jovani Richardson MD CHEMISTRY ORDERABLES Performing Organization Address City/[facility] Co de Phone Number [facility] [place] [address] * Differential, Automated (11/06/2023 7:37 AM EDT) Neutrophils % 62.9 % [facility] Neutr Abs (ANC) 3.24 1.70 - 6.10 x10(3)/[facility] Lymphocytes % 17.5 % [facility] Lymphocytes Abs 0.9 0.9 - 3.2 x10(3)/[facility] Monocytes % 11.8 % [facility] Monocyte Abs 0.6 0.3 - 0.9 x10(3)/[facility] Eosinophils % 6.2 % [facility] Eosinophils Abs 0.3 0.0 - 0.4 x10(3)/[facility] Basophils % 1.4 % [facility] Basophils Abs 0.1 0.0 - 0.1 x10(3)/[facility] Immature Gran % 0.20 % [facility] Comment: Immature granulocytes(IG's)percentage and absolute count will include metamyelocytes, myelocytes, and promyelocytes. Blood smears from CBCs yielding IG's will be scanned manually for concordance. If this scan disagrees with the automated IG or if promyelocytes are noted, a manual differential will be performed. Raya Gran Abs 0.01 0.00 - 0.04 x10(3)/[facility] Blood 11/06/2023 7:37 AM EDT 11/06/2023 7:49 AM EDT Narrative Resulting Agency Comment Spec In Lab Jovani Richardson MD HEMATOLOGY ORDERABLE S [facility] [place] [address] * (ABNORMAL) Hemogram (11/06/2023 7:37 AM EDT) WBC 5.2 4.0 - 9.5 x10(3)/[facility] RBC 3.49(L) 4.58 - 5.54 x10(6)/[facility] Hemoglobin 10.7(L) 13.7 - 16.5 g/dL [facility] Hematocrit 33.2(L) 40.5 - 48.5 % [facility] MCV 95.1(H) 82.9 - 93.1 fL [facility] MCH 30.7 27.5 - 32.1 pg [facility] MCHC 32.2 32.0 - 35.7 g/dL [facility] Platelets 175 145 - 357 x10(3)/[facility] RDWSD 44.9 36.0 - 45.0 [facility] RDWCV 12.8 11.4 - 13.8 % [facility] MPV 10.8 7.6 - 12.9 [facility]ORY nRBC % Auto 0.0 % [facility] nRBC Abs Auto 0.000 0.000 - 0.000 x10(3)/mcL [facility] Blood 11/06/2023 7:37 AM EDT 11/06/2023 7:49 AM EDT Narrative Resulting Agency Comment Spec In Lab Jovani Richardson MD HEMATOLOGY ORDERABLE S Performing Organization Address [facility] Co de Phone Number [facility] [place] [address] * (ABNORMAL) PTH (11/06/2023 7:37 AM EDT) PTH 113(H) 15 - 65 pg/mL [facility] Blood 11/06/2023 7:37 AM EDT 11/06/2023 7:49 AM EDT Narrative Resulting Agency Comment Spec In Lab Jovani Richardson MD CHEMISTRY ORDERABLES Performing Organization Address [facility] Co de Phone Number [facility] [place] [address] * Ferritin (11/06/2023 7:37 AM EDT) Ferritin 97 31 - 409 ng/mL [facility] Comment: Please note that as of 05/01/2023, the reference intervals for Ferritin have been updated. Blood 11/06/2023 7:37 AM EDT 11/06/2023 7:49 AM EDT Narrative Resulting Agency Comment Spec In Lab Jovani Richardson MD CHEMISTRY ORDERABLES Performing Organization Address City/[facility] Co de Phone Number [facility] [place] [address] * Iron and TIBC (11/06/2023 7:37 AM EDT) Iron 80 45 - 160 mcg/dL [facility] TIBC 266 250 - 450 mcg/dL [facility] Iron Saturation 30 20 - 50 % [facility] Blood 11/06/2023 7:37 AM EDT 11/06/2023 7:49 AM EDT Narrative Resulting Agency Comment Spec In Lab Jovani Richardson MD CHEMISTRY ORDERABLES Performing Organization Address [facility]/ZIP Co de Phone Number [facility] [place] [address] * (ABNORMAL) Vitamin D, 25-Hydroxy (11/06/2023 7:37 AM EDT) 25-OH Vit D Total 20(L) 21 - 100 ng/mL [facility] 25-OH Vit D Interp Deficient [facility] Blood 11/06/2023 7:37 AM EDT 11/06/2023 7:49 AM EDT Narrative Resulting Agency Comment Spec In Lab Jovani Richardson MD CHEMISTRY ORDERABLES Performing Organization Address [facility] Co de Phone Number [facility] [place] [address] * (ABNORMAL) Basic Metabolic Panel (non-fasting) (11/06/2023 7:37 AM EDT) [facility] Glucose Lvl 93 65 - 199 mg/dL [facility] Comment:Diabetes: >=200 mg/d L plus symptoms BUN 56(H) 10 - 20 mg/dL [facility] Creatinine 3.08(H) 0.80 - 1.50 mg/dL [facility] Sodium 142 135 - 145 mmol/L [facility] Potassium 5.2(H) 3.5 - 5.0 mmol/L [facility] Comment: Please note: ??Patients with WBC >100,000 may have falsely elevated Potassium levels. ??For accurate Potassium quantification in these patients send serum separator tube (gold top) for subsequent determinations. ??Contact the Clinical Chemistry Laboratory if there are any questions. Chloride 108(H) 98 - 107 mmol/L [facility] CO2 21(L) 22 - 31 mmol/L [facility] Anion Gap 13 5 - 15 mmol/L [facility] Calcium 9.0 8.5 - 10.5 mg/dL [facility] Estimated GFR 21(L) >=60 mL/min/1. 73 m?? [facility] Comment: This patient's estimated [...] In Lab Jovani Richardson MD CHEMISTRY ORDERABLES [facility] [place] [address] * (ABNORMAL) Phosphorus (11/06/2023 7:37 AM EDT) Phosphorus 4.7(H) 2.5 - 4.5 mg/dL [facility] Blood 11/06/2023 7:37 AM EDT 11/06/2023 7:49 AM EDT Narrative Resulting Agency Comment Spec In Lab Jovani Richardson MD CHEMISTRY ORDERABLES [facility] [place] [address] * Albumin Level (11/06/2023 7:37 AM EDT) Albumin 4.1 3.2 - 5.2 g/dL [facility] Blood 11/06/2023 7:37 AM EDT 11/06/2023 7:49 AM EDT Narrative Resulting Agency Comment Spec In Lab Jovani Richardson MD CHEMISTRY ORDERABLES Performing Organization Address City/[facility]/ZIP Co de Phone Number [facility] [place] [address] * Uric acid (11/06/2023 7:37 AM EDT) Uric Acid 7.4 3.5 - 8.5 mg/dL [facility] Blood 11/06/2023 7:37 AM EDT 11/06/2023 7:49 AM EDT Narrative Resulting Agency Comment Spec In Lab Jovani Richardson MD CHEMISTRY ORDERABLES Performing Organization Address [facility] Co de Phone Number [facility] [place] [address] * (ABNORMAL) PTH (11/06/2023 7:37 AM EDT) PTH 113(H) 15 - 65 pg/mL [facility] Blood 11/06/2023 7:37 AM EDT 11/06/2023 7:49 AM EDT Narrative Resulting Agency Comment Spec In Lab Jovani Richardson MD CHEMISTRY ORDERABLES Performing Organization Address [facility] Co de Phone Number [facility] [place] [address] documented in this encounter Visit Diagnoses Diagnosis CKD (chronic kidney disease) stage 4, GFR 15-29 ml/min Chronic kidney disease, Stage IV (severe) Primary hypertension Unspecified essential hypertension Anemia of chronic renal failure, stage 4 (severe) Acidosis, metabolic Acidosis Sharma's esophagus with dysplasia Sharma's esophagus documented in this encounter Care Teams Asw/Asuw Tactical Air Controller Relationship Specialty Start Date End Date Govind Mendes [place] [address] PCP - General Internal Medicine 11/06/23 documented as of this encounter
--- OUTSIDE RECORDS SUMMARY | 2023-12-20 02:22 | XMS_ITS | Encounter Summary ---
Author Organization [facility] Address [address] [place] [address] Care Team Providers Care Wooden Barrel Mechanic Name Role Phone oJvani Wharton DO Primary Care Provider [phone]- [phone] Encounter Details Date Type Department Care Team (Latest Contact Info) Description 09/12/2018 15:00 EDT - 09/12/2018 23:59 EDT Hospital Encounter [address] [address] Unknown, Provider, Discharge Disposition: Home or Self Care Social History Tobacco Use Types Packs/Day Years Used Date Smoking Tobacco: Never Assessed Sex and Gender Information Value Date Recorded Sex Assigned at Not on file Gender Identity Male 10/18/2021 9:41 EDT Sexual Orientation Not on file documented as of this encounter Discharge Disposition Disposition Code Departure Means Destination Home or Self Mcfp documented in this encounter Plan of Treatment Not on file documented as of this encounter Visit Diagnoses Not on filedocumented in this encounter Care Teams Wooden Barrel Mechanic Relationship Specialty Start Date End Date Jovani Wharton DO [address] [place] [address] PCP - General 10/11/16 10/17/21 documented as of this encounter
--- OUTSIDE RECORDS SUMMARY | 2023-12-20 02:22 | XMS_ITS | Encounter Summary ---
[place] [address] Care Team Providers Care Outplacement Consultant Name Role Phone Govind Mendes Primary Care Provider + Encounter Details Date Type Department Care Team (Late st Contact Info) Description 12/11/2023 Telephone [place] [address] Karol Iverson RN Social History Tobacco Use [...] Telephone Encounter - Karol Iverson RN - 12/11/2023 2:22 PM EDT LM for patient to return call to review labs results and recommendations from Dr Richardson (hydrate & repeat BMP in 1 week - standing orders in Epic) documented in this encounter Plan of Treatment Upcoming Encounters Date Type Department Care Team (Latest Contact Info) Description 01/02/2024 7:30 AM EDT Hospital Encounter [place] [address] Lawrence Gar MD [facility] [place] [address] 01/02/2024 7:30 AM EDT - 01/02/2024 8:30 AM EDT Surgery [place] [address] Lawrence Gar MD [facility] [place] [address] EGD, UPPER GI ENDOSCOPY (WRVU 2.09) 11/17/2024 4:20 PM EDT Office [place] [address] Lawrence Gar MD [facility] [place] [address] Scheduled Procedures Name Priority Associated Diagnoses Date/Ti me EGD, UPPER GI ENDOSCOPY (WRVU 2.09) Sharma's esophagus with dysplasia 01/02/2024 7:30 AM EDT documented as of this encounter Visit Diagnoses Not on filedocumented in this encounter Care Teams Outplacement Consultant Relationship Specialty Start Date End Date Govind Mendes [place] [address] [place] [address] PCP - General Internal Medicine 11/06/23 documented as of this encounter
--- OUTSIDE RECORDS SUMMARY | 2023-12-20 02:22 | XMS_ITS | Encounter Summary ---
Author Organization [facility] Address [address] [place] [address] Care Team Providers Care Florist Manager Name Role Phone Jovani Wharton DO Primary Care Provider [phone]- [phone] Jorge Chauhan MD Primary Care Provider Luis Lauren MD Primary Care Provider +1 -[phone] Slade Tran MD Primary Care Provider [phone] Encounter Details Date Type Department Care Team (Late st Contact Info) Description 06/11/2019 Lab Requisition [facility] Pathology & Laboratory Medicine - [facility] [address] [place] [address] Unknown, Provider, Social History Tobacco Use Types [...] 0.0 - 4.5 ng/mL 06/12/2019 10:26 EST [facility] Blood VENOUS BLOOD / Unknown 06/11/2019 15:19 EST 06/11/2019 22:00 EST Narrative [facility] - 06/12/2019 10:26 EST NOTE: Serum PSA concentration should not be interpreted as absolute evidence for the presence or absence of malignant disease. Assayed on Siemens [employer] XPT using chemiluminescent technology.??Values obtained by using different assay methods cannot be used interchangeably. Provider Unknown CHEMISTRY & BLOOD GA S ORDERABLES [facility] [address] [place] [address] documented in this encounter Visit Diagnoses Not on filedocumented in this encounter Additional Health Concerns Infection Onset Date Last Indicated Resolved Time R/O COVID-19 11/29/2019 11/29/2019 12/04/2019 22:1 7 EDT documented as of this encounter Care Teams Florist Manager Relationship Specialty Start Date End Date Jovani Wharton DO [address] [place], [place] [address] PCP - General 10/11/16 10/17/21 Jorge Chauhan MD [address] [place], [place] [address] PCP - General Family Medicine - Primary Care 10/18/21 11/22/21 Luis Lauren MD [address] [place], [place] [address] PCP - General Family Medicine - Primary Care 11/23/21 11/11/22 Slade Tran MD [facility] [place] [address] PCP - General 11/12/22 documented as of this encounter
--- OUTSIDE RECORDS SUMMARY | 2023-12-20 02:22 | XMS_ITS | Encounter Summary ---
Author Organization [facility]ly [facility] [place] [address] Care Team Providers Care Vp Software Engineering Name Role Phone Govind Mendes Primary Care [...] 2.09) COLONOSCOPY,SCREENING (WRVU 3.26) Lawrence Gar MD [facility] [place] [address] [facility] Referral ID Status Reason Start Date Expiration Date Visits Re quested Visits Authorized [id number] 1 1 Encounter Details Date Type Department Care Team (Late st Contact Info) Description 11/12/2023 10:46 AM EDT Anesthesia [place] [address] Mathew Tripathi MD [facility] [place] [address] Anesthesia Record Procedure Summary Procedure Name Responsible [...] Type Details Placement Removal PIV 11/12/23; 1018; [id number] catheter system; 22 gauge; median vein (underside [...] Procedure Summary Date: 11/12/23 Room / Location: [facility] / [facility] Anesthesia Start: 1046 Anesthesia Stop: 1130 Procedures: EGD WITH BIOPSY (WRVU 2.39) (Trunk) COLONOSCOPY, POLYPECTOMY, REMOVAL LESION BY SNARE (WRVU 4.57) (Trunk) Diagnosis: (3 year) Surgeons: Lawrence Gar MD Responsible Provider: Mathew Tripathi MD Anesthesia Type: MAC ASA Status: 3 All Anesthesia Providers: Anesthesiologist: Mathew Tripathi MD ORE FEEDER: Dominguez Cullen CRNA Vitals Value Taken Time BP 126/84 11/12/23 1158 Temp Pulse Resp 15 11/12/23 1158 SpO2 97 % 11/12/23 1200 Pain Level 0 11/12/23 1158 Vitals shown include unfiled device data. Patient Location: PACU/[facility] Level of Consciousness: Awake and Alert Pain [...] 4.67) performed by Lawrence Gar MD at [facility] ??? PRO UPPER GI ENDOSCOPY, BIOPSY N/A 10/20/2020 EGD WITH BIOPSY (WRVU 2.49) performed by Lawrence Gar MD at [facility] Social History Tobacco Use ??? Smoking [...] risks discussed with patient. Plan discussed with ORE FEEDER. Anesthesia Screening documented in this encounter Plan of Treatment Upcoming Encounters Date Type Department Care Team (Latest Contact Info) Description 01/02/2024 7:30 AM EDT Hospital Encounter [place] [address] Lawrence Gar MD [facility] [place] [address] 01/02/2024 7:30 AM EDT - 01/02/2024 8:30 AM EDT Surgery [place] [address] Lawrence Gar MD [facility] [place] [address] EGD, UPPER GI ENDOSCOPY (WRVU 2.09) 11/17/2024 4:20 PM EDT Office [place] [address] Lawrence Gar MD [facility] [place] [address] Scheduled Procedures Name Priority Associated Diagnoses Date/Ti [...] mg documented in this encounter Care Teams Vp Software Engineering Relationship Specialty Start Date End Date Govind Mendes PA [facility] [place] [address] PCP - General Internal Medicine 11/06/23 documented as of this encounter
--- OUTSIDE RECORDS SUMMARY | 2023-12-20 02:22 | XMS_ITS | Encounter Summary ---
Author Organization [facility] Address [address] [place] [address] Care Team Providers Care Mold Builder Name Role Phone Jovani Wharton DO Primary Care Provider [phone] Reason for Visit * (Routine/Next Available) - Receiving Office to Obtain Authorization Specialty Diagnoses / Procedures Referred By Devaughn bobo Referred To Contact Procedures XR OUTSIDE IMAGES BODY Unknown, Provider, Referral ID Status Reason Start Date Expiration Date Visits Requested Visits Authorized [id number] Receiving Office to Obtain Authorization 07/27/2021 1 1 Encounter Details Date Type Department Care Team (Latest Contact Info) Description 07/27/2021 12:19 EST - 07/27/2021 23:59 EST Hospital Encounter [facility] Secondary [place] Discharge Disposition: [...] on filedocumented in this encounter Care Teams Mold Builder Relationship Specialty Start Date End Date Jovani Wharton DO [address] [place] [address] PCP - General 10/11/16 10/17/21 documented as of this encounter
--- OUTSIDE RECORDS SUMMARY | 2023-12-20 02:22 | XMS_ITS | Encounter Summary ---
Author Organization [facility] [address] Care Team Providers Care Ruby Engineer Name Role Phone Govind Mendes Primary Care Provider + Encounter Details Date Type Department Care Team (Late st Contact Info) Description 11/29/2023 Orders [place] [address] Lawrence Gar MD [facility] DR GASTROENTEROLOG[place] [address] Sharma's esophagus with dysplasia (Primary Dx) Social [...] 7:30 AM EDT Hospital En[place] [address] Lawrence Gar MD [facility] DR GASTROENTER[place] [address] 01/02/2024 7:30 AM EDT - 01/02/2024 8:30 AM EDT Surgery [place] [address] Lawrence Gar MD [facility] DR GASTROENTEROLOG[place] [address] EGD, UPPER GI ENDOSCOPY (WRVU 2.09) 11/17/2024 4:20 PM EDT Office [place] [address] Lawrence Gar MD [facility] DR GASTROENTEROLOG[place] [address] Scheduled Orders Name Type Priority Associated Diagnoses [...] Sharma's esophagus with dysplasia- Primary Sharma's esophagus Sharma's esophagus with dysplasia Sharma's esophagus documented in this encounter Care Teams Ruby Engineer Relationship Specialty Start Date End Date Govind Mendes [place] [address] [place] [address] PCP - General Internal Medicine 11/06/23 documented as of this encounter
--- OUTSIDE RECORDS SUMMARY | 2023-12-20 02:22 | XMS_ITS | Encounter Summary ---
Author Organization [facility] Address [address] [place] [address] Care Team Providers Care Facilities Coordinator Name Role Phone Jovani Wharton DO Primary Care Provider [phone] Jorge Chauhan MD Primary Care Provider Luis Lauren MD Primary Care Provider [phone] Slade Tran MD Primary Care Provider [phone] Encounter Details Date Type Department Care Team (Late st Contact Info) Description 11/29/2019 Lab Requisition [facility] Pathology & Laboratory Medicine - [facility] [address] [place], [place] [id number] Outr Resulting Lab, Provider Social History Tobacco [...] Not Detected Not Detected 12/01/2019 17:03 EDT [facility] Comment: This test has not been [...] or revoked sooner. ??Factsheets for healthcare providers: ??https://www.fda.gov/media/596560/download Factsheets for patients: https://www.fda.gov/media/553248/download Negative results do not preclude infection with SARS-CoV-2 virus, and should not be the sole basis of a patient management decision. Swab ENTIRE NASOPHARYNX / Unknown 11/29/2019 13:07 EDT 11/30/2019 15:49 EDT Provider Outr Resulting Lab MICROBIOLOGY - GENERAL ORDERABLES Performing Organization Address City/State/[facility] Co de Phone Number [facility] [address] [place] [address] * COVID-19 TESTING (11/29/2019 13:07 EDT) COVID-19 rt-PCR Result Not Detected Not Detected 12/01/2019 17:13 EDT [facility] Comment: This test has not been [...] or revoked sooner. ??Factsheets for healthcare providers: ??https://www.fda.gov/media/995651/download Factsheets for patients: https://www.fda.gov/media/856719/download Negative results do not preclude infection with SARS-CoV-2 virus, and should not be the sole basis of a patient management decision. Performing Lab [facility] 12/01/2019 17:13 EDT [facility] Swab 11/29/2019 13:0 7 EDT 11/30/2019 15:49 EDT Provider Outr Resulting Lab MICROBIOLOGY - GENERAL ORDERABLES [facility] [address] [place], [place] [address] [place] [address] LABORATORY [address] [place] [address] documented in this encounter Visit Diagnoses Not on filedocumented in this encounter Additional Health Concerns Infection Onset Date Last Indicated Resolved Time R/O COVID-19 11/29/2019 11/29/2019 12/04/2019 22:1 7 EDT documented as of this encounter Care Teams Facilities Coordinator Relationship Specialty Start Date End Date Jovani Wharton DO [address] [place], [place] [address] PCP - General 10/11/16 10/17/21 Jorge Chauhan MD [address] [place], [place] [address] PCP - General Family Medicine - Primary Care 10/18/21 11/22/21 Luis Lauren MD [address] [place], [place] [address] PCP - General Family Medicine - Primary Care 11/23/21 11/11/22 Slade Tran MD [address] [place] [place] [address] PCP - General 11/12/22 documented as of this encounter
--- OUTSIDE RECORDS SUMMARY | 2023-12-20 02:22 | XMS_ITS | Encounter Summary ---
Author Organization [facility] [place] [address] Care Team Providers Care Paginator Name Role Phone Govind Mendes Primary Care Provider + Encounter Details Date Type Department Care Team (Late st Contact Info) Description 11/26/2023 Orders Only Nephrology [place] [address] Lizet Hayward RN CKD (chronic kidney disease) [...] AM EDT Hospital Encounter [place] [address] Lawrence Gar MD [facility] [place] [address] 01/02/2024 7:30 AM EDT - 01/02/2024 8:30 AM EDT Surgery [place] [address] Lawrence Gar MD [facility] [place] [address] EGD, UPPER GI ENDOSCOPY (WRVU 2.09) 11/17/2024 4:20 PM EDT Office Visit [place] [address] Lawrence Gar MD [facility] [place] [address] Scheduled Orders Name Type Priority Associated Diagnoses [...] esophagus documented in this encounter Care Teams Paginator Relationship Specialty Start Date End Date Govind [place] [address] PCP - General Internal Medicine 11/06/23 documented as of this encounter
--- OUTSIDE RECORDS SUMMARY | 2023-12-20 02:22 | XMS_ITS | Encounter Summary ---
Author Organization [facility] Address [address] [place] [address] Care Team Providers Care Metalizing Machine Operator Name Role Phone Jovani Wharton DO Primary Care Provider [phone] Reason for Visit * (Routine/Next Available) - Receiving Office to Obtain Authorization Specialty Diagnoses / Procedures Referred By Devaughn t Referred To Contact Procedures CT OUTSIDE IMAGES BODY Imaging, External Referral ID Status Reason Start Date Expiration Date Visits Requested Visits Authorized [id number] Receiving Office to Obtain Authorization 07/23/2021 1 1 Encounter Details Date Type Department Care Team (Latest Contact Info) Description 06/02/2020 - 06/02/2020 23:59 EST Hospital Encounter [facility] Secondary Reads [place] Discharge Disposition: [...] on filedocumented in this encounter Care Teams Metalizing Machine Operator Relationship Specialty Start Date End Date Jovani Wharton DO [address] [place] [address] PCP - General 10/11/16 10/17/21 documented as of this encounter
--- OUTSIDE RECORDS SUMMARY | 2023-12-20 02:23 | XMS_ITS | Encounter Summary ---
Author Organization [facility] [place] [address] Care Team Providers Care Factory Expert Name Role Phone Slade Tran MD Primary Care Provider [phone] Encounter Details Date Type Department Care Team [...] 7:30 AM EDT Hospital En[place] [address] Lawrence Gar MD [facility] [place] [address] 01/02/2024 7:30 AM EDT - 01/02/2024 8:30 AM EDT [place] [address] Lawrence Gar MD [facility] [place] [address] EGD, UPPER GI ENDOSCOPY (WRVU 2.09) 11/17/2024 4:20 PM EDT Office [place] [address] Lawrence Gar MD [facility] [place] [address] Scheduled Procedures Name Priority Associated Diagnoses Date/Ti me EGD, UPPER GI ENDOSCOPY (WRVU 2.09) Sharma's esophagus with dysplasia 01/02/2024 7:30 AM EDT documented as of this encounter Visit Diagnoses Not on filedocumented in this encounter Care Teams Factory Expert Relationship Specialty Start Date End Date Slade Tran MD [address] [place] [place] [address] PCP - General Family Medicine 06/19/22 11/05/23 documented as of this encounter
--- OUTSIDE RECORDS SUMMARY | 2023-12-20 02:23 | XMS_ITS | Encounter Summary ---
[place] [address] Care Team Providers Care Clinical Informatics Strategist Name Role Phone Slade Tran MD Primary Care Provider [phone] Encounter Details Date Type Department Care Team (Late st Contact Info) Description 07/09/2022 Telephone [place] [address] Clarissa Zamudio, RN Social History [...] 7:30 AM EDT Hospital Encounter [place] [address] Lawrence Gar MD [facility] [place] [address] 01/02/2024 7:30 AM EDT - 01/02/2024 8:30 AM EDT Surgery [place] [address] Lawrence Gar MD [facility] [place] [address] EGD, UPPER GI ENDOSCOPY (WRVU 2.09) 11/17/2024 4:20 PM EDT Office Visit [place] [address] Lawrence Gar MD [facility] [place] [address] Scheduled Procedures Name Priority Associated Diagnoses Date/Ti me EGD, UPPER GI ENDOSCOPY (WRVU 2.09) Sharma's esophagus with dysplasia 01/02/2024 7:30 AM EDT documented as of this encounter Visit Diagnoses Not on filedocumented in this encounter Care Teams Clinical Informatics Strategist Relationship Specialty Start Date End Date Slade Tran MD [address] [place] [address] PCP - General Family Medicine 06/19/22 11/05/23 documented as of this encounter
--- OUTSIDE RECORDS SUMMARY | 2023-12-20 02:23 | XMS_ITS | Encounter Summary ---
Author Organization [facility] [place] [address] Care Team Providers Care Tube Bender Hand Name Role Phone Slade Tran MD Primary Care Provider [phone] Encounter Details Date Type Department Care Team [...] 7:30 AM EDT Hospital En[place] [address] Lawrence Gar MD [facility] DR [place] [address] 01/02/2024 7:30 AM EDT - 01/02/2024 8:30 AM EDT [place] [address] Lawrence Gar MD [facility] DR [place] [address] EGD, UPPER GI ENDOSCOPY (WRVU 2.09) 11/17/2024 4:20 PM EDT Office [place] [address] Lawrence Gar MD [facility] [place] [address] Scheduled Procedures Name Priority Associated Diagnoses Date/Ti me EGD, UPPER GI ENDOSCOPY (WRVU 2.09) Sharma's esophagus with dysplasia 01/02/2024 7:30 AM EDT documented as of this encounter Visit Diagnoses Not on filedocumented in this encounter Care Teams Tube Bender Hand Relationship Specialty Start Date End Date Slade Tran MD [address] [place] [address] PCP - General Family Medicine 06/19/22 11/05/23 documented as of this encounter
--- OUTSIDE RECORDS SUMMARY | 2023-12-20 02:23 | XMS_ITS | Encounter Summary ---
Author Organization [facility] Address [facility] [address] [place] [id number] Care Team Providers Care Miniature Model Maker Name Role Phone Slade Tran MD Primary Care Provider [phone] Encounter Details Date Type Department Care Team (Latest Contact Info) Description 08/30/2023 11:30 AM EDT Office Visit [place] [address] Jovani Richardson MD [facility] [place] [address] CKD (chronic kidney disease) stage 4, GFR [...] 11:30 AM EDT Nephrology/Hypertension Clinic Follow-up Note [id number] ID: 68 y.o.year-old male for follow up [...] a severe episode of abdominal pain in [place] in June that landed himin the ED. [...] 7:30 AM EDT Hospital En[place] [address] Lawrence Gar MD [facility] DR [place] [address] 01/02/2024 7:30 AM EDT - 01/02/2024 8:30 AM EDT [place] [address] Lawrence Gar MD [facility] DR [place] [address] EGD, UPPER GI ENDOSCOPY (WRVU 2.09) 11/17/2024 4:20 PM EDT Office [place] [address] Lawrence Gar MD [facility] DR [place] [address] Scheduled Orders Name Type Priority Associated Diagnoses [...] D Total 20(L) 21 - 100 ng/mL [facility] 25-OH Vit D Interp Deficient [facility] Blood 11/06/2023 7:37 AM EDT 11/06/2023 7:49 AM EDT Narrative Resulting Agency Comment Spec In Lab Jovani Richardson MD CHEMISTRY ORDERABLES Performing Organization Address City/[facility]/ZIP Co de Phone Number [facility] [place] [address] * Iron and TIBC (11/06/2023 7:37 AM EDT) Iron 80 45 - 160 mcg/dL [facility] TIBC 266 250 - 450 mcg/dL [facility] Iron Saturation 30 20 - 50 % [facility] Blood 11/06/2023 7:37 AM EDT 11/06/2023 7:49 AM EDT Narrative Resulting Agency Comment Spec In Lab Jovani Richardson MD CHEMISTRY ORDERABLES Performing Organization Address [facility] Co de Phone Number [facility] [place] [address] * Ferritin (11/06/2023 7:37 AM EDT) Ferritin 97 31 - 409 ng/mL [facility] Comment: Please note that as of 05/01/2023, the reference intervals for Ferritin have been updated. Blood 11/06/2023 7:37 AM EDT 11/06/2023 7:49 AM EDT Narrative Resulting Agency Comment Spec In Lab Jovani Richardson MD CHEMISTRY ORDERABLES Performing Organization Address City/[facility]/ZIP Co de Phone Number [facility] [place] [address] * (ABNORMAL) PTH (11/06/2023 7:37 AM EDT) PTH 113(H) 15 - 65 pg/mL [facility] Blood 11/06/2023 7:37 AM EDT 11/06/2023 7:49 AM EDT Narrative Resulting Agency Comment Spec In Lab Jovani Richardson MD CHEMISTRY ORDERABLES [facility] [place] [address] documented in this encounter Visit Diagnoses Diagnosis CKD (chronic kidney disease) stage 4, GFR 15-29 ml/min- Primary Chronic kidney disease, Stage IV (severe) Primary hypertension Unspecified essential hypertension Anemia of chronic renal failure, stage 4 (severe) Acidosis, metabolic Acidosis Sharma's esophagus with dysplasia Sharma's esophagus documented in this encounter Care Teams Miniature Model Maker Relationship Specialty Start Date End Date Slade Tran MD [facility] [place] [address] PCP - General Family Medicine 06/19/22 11/05/23 documented as of this encounter
--- OUTSIDE RECORDS SUMMARY | 2023-12-20 02:23 | XMS_ITS | Encounter Summary ---
Author Organization [facility] [place] [address] Care Team Providers Care Emerging Solutions Executive Name Role Phone Slade Tran MD Primary Care Provider [phone] Encounter Details Date Type Department Care Team (Late st Contact Info) Description 09/19/2023 External Results Nephrology [place] [address] Kraol Iverson RN Social History Tobacco Use Types [...] 7:30 AM EDT Hospital Encounter [place] [address] Lawrence Gar MD [facility] [place] [address] 01/02/2024 7:30 AM EDT - 01/02/2024 8:30 AM EDT Surgery [place] [address] Lawrence Gar MD [facility] [place] [address] EGD, UPPER GI ENDOSCOPY (WRVU 2.09) 11/17/2024 4:20 PM EDT Office [place] [address] Lawrence Gar MD [facility] [place] [address] Scheduled Procedures Name Priority Associated Diagnoses Date/Ti [...] on filedocumented in this encounter Care Teams Emerging Solutions Executive Relationship Specialty Start Date End Date Slade Tran MD [facility] [place] [address] PCP - General Family Medicine 06/19/22 11/05/23 documented as of this encounter
--- OUTSIDE RECORDS SUMMARY | 2023-12-20 02:23 | XMS_ITS | Encounter Summary ---
Author Organization [facility] [place] [address] Care Team Providers Care Marine Painter Name Role Phone Slade Tran MD Primary Care Provider [phone] Encounter Details Date Type Department Care Team (Late st Contact Info) Description 09/25/2023 6:25 PM EDT Ancillary Procedure [place] [address] Salde Tran MD [facility] [place] [address] Social History Tobacco Use Types [...] AM EDT Hospital Encounter [place] [address] Lawrence Gar MD [facility] [place] [address] 01/02/2024 7:30 AM EDT - 01/02/2024 8:30 AM EDT [place] [address] Lawrence Gar MD [facility] [place] [address] EGD, UPPER GI ENDOSCOPY (WRVU 2.09) 11/17/2024 4:20 PM EDT Office [place] [address] Lawrence Gar MD [facility] [place] [address] Scheduled Procedures Name Priority Associated Diagnoses Date/Ti me EGD, UPPER GI ENDOSCOPY (WRVU 2.09) Sharma's esophagus with dysplasia 01/02/2024 7:30 AM EDT documented as of this encounter Procedures Procedure Name Priority Date/Time Associated Diagnosis Comments FILM LIBRARY STORAGE ONLY ULTRASOUND STUDY Routine 09/25/2023 6:20 PM EDT documented in this encounter Results * Film Library- Storage Only Ultrasound Study (09/25/2023 6:20 PM EDT) Narrative [facility] - 09/25/2023 6:20 PM EDT This exam is auto-finalizing. It's purpose is for storage only. Slade Tran MD G FILM LIBRARY ORD ERABLES [place], [place] documented in this encounter Visit Diagnoses Not on filedocumented in this encounter Care Teams Marine Painter Relationship Specialty Start Date End Date Slade Tran MD [address] [place] [address] PCP - General Family Medicine 06/19/22 11/05/23 documented as of this encounter
--- OUTSIDE RECORDS SUMMARY | 2023-12-20 02:23 | XMS_ITS | Encounter Summary ---
Author Organization [place] [address] Care Team Providers Care Office Sweeper Name Role Phone Slade Tran MD Primary Care Provider [phone] Encounter Details Date Type Department Care Team (Latest Contact Info) Description 08/30/2022 9:34 PM EDT - 08/30/2022 11:59 PM EDT Hospital [place] [address] Discharge Disposition: Home Social History Tobacco Use [...] Units by mouth once a week. 08/31/2022 [id number] (Creon 6) 6,000-19,000 -30,[address] capsule [...] 7:30 AM EDT Hospital Encounter [place] [address] Lawrence Gar MD [facility] [place] [address] 01/02/2024 7:30 AM EDT - 01/02/2024 8:30 AM EDT Surgery [place] [address] Lawrence Gar MD [facility] [place] [address] EGD, UPPER GI ENDOSCOPY (WRVU 2.09) 11/17/2024 4:20 PM EDT Office [place] [address] Lawrence Gar MD [facility] DR [place] [address] Scheduled Procedures Name Priority Associated Diagnoses Date/Ti me EGD, UPPER GI ENDOSCOPY (WRVU 2.09) Sharma's esophagus with dysplasia 01/02/2024 7:30 AM EDT documented as of this encounter Procedures Procedure Name Priority Date/Time Associated Diagnosis Comments SURGICAL PATHOLOGY REPORT Routine 08/30/2022 9:39 AM EDT documented in this encounter Results * Surgical Pathology Report (08/30/2022 9:39 AM EDT) FINAL DIAGNOSIS (AP) [id number] ? Location: [facility] The signing pathologist has (i) examined the relevant preparation(s) for the specimen(s) and (ii) rendered or confirmed the diagnosis(es). . ?Surgical Pathology DIAGNOSIS A - Right second (hammer)toe (gross surgical pathology examination). Electronically signed by: ?Nilo Moses MD Verified: ??09/03/2022 13:06 ??Pathologist Performed at: ??-[facility] [place]ology, [place] [address] Client Hr Manager: Deana Lopez MD, FCAP, ??CLIA Certificate: [id number] SPECIMEN(S) SUBMITTED A - Right second toe Referring Identifier: [id number] CLINICAL INFORMATION Right second toe deformity. SPECIMEN PROCESSING A - Labeled/Fixativ e: ?? Right second toe, formalin. 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 Lesion: Hammertoe deformity of the PIP joint. Nail: Unremarkable. Skin: Unremarkable. Sections/Proces sing: ?? No sections submitted, gross diagnosis only. ??sns 09/03/2022 1:06 PM EDT [facility] 08/30/2022 9:39 AM EDT Narrative Resulting Agency Comment Spec In Lab / [facility] Karen Lopez DPJodi PATHOLOGY/CYTOLOGY O RDERABLES [facility] [place] [address] documented in this encounter Visit Diagnoses Not on filedocumented in this encounter Care Teams Office Sweeper Relationship Specialty Start Date End Date Slade Tran MD [address] [place] [address] PCP - General Family Medicine 06/19/22 11/05/23 documented as of this encounter
--- OUTSIDE RECORDS SUMMARY | 2023-12-20 02:23 | XMS_ITS | Encounter Summary ---
Author Organization [facility] [place] [address] Care Team Providers Care End User Support Specialist Name Role Phone Slade Tran MD Primary Care Provider [phone] Encounter Details Date Type Department Care Team (Latest Contact Info) Description 08/30/2023 9:35 AM EDT Laboratory Appointment Lab [address] [place] [phone] CKD (chronic kidney disease) stage 4, GFR [...] 7:30 AM EDT Hospital En[place] [phone] Lawrence Gar MD [facility] [place] [address] 01/02/2024 7:30 AM EDT - 01/02/2024 8:30 AM EDT Surgery [place] [address] Lawrence Gar MD [facility] [place] [address] EGD, UPPER GI ENDOSCOPY (WRVU 2.09) 11/17/2024 4:20 PM EDT Office [place] [address] Lawrence Gar MD [facility] [place] [address] Scheduled Procedures Name Priority Associated Diagnoses Date/Ti [...] 10:00 AM EDT) U Creatinine 72 mg/dL [facility] U Protein Ran 187(H) 0 - 12 mg/dL [facility] Prot/Cre Ratio 2.6 ratio [facility] Urine 08/30/2023 10:0 0 AM EDT 08/30/2023 10:39 AM EDT Narrative Resulting Agency Comment Spec In Lab Jovani Richardson MD URINE ORDERABLES [facility] [place] [address] * Differential, Automated (08/30/2023 9:52 AM EDT) Neutrophils % 66.9 % [facility] Neutr Abs (ANC) 4.38 1.70 - 6.10 x10(3)/[facility] Lymphocytes % 13.8 % [facility] Lymphocytes Abs 0.9 0.9 - 3.2 x10(3)/[facility] Monocytes % 12.2 % [facility] Monocyte Abs 0.8 0.3 - 0.9 x10(3)/[facility] Eosinophils % 5.7 % [facility] Eosinophils Abs 0.4 0.0 - 0.4 x10(3)/[facility] Basophils % 0.9 % [facility] Basophils Abs 0.1 0.0 - 0.1 x10(3)/[facility] Immature Gran % 0.50 % [facility] Comment: Immature granulocytes(IG's)percentage and absolute count will include metamyelocytes, myelocytes, and promyelocytes. Blood smears from CBCs yielding IG's will be scanned manually for concordance. If this scan disagrees with the automated IG or if promyelocytes are noted, a manual differential will be performed. Raya Gran Abs 0.03 0.00 - 0.04 x10(3)/[facility] Blood 08/30/2023 9:52 AM EDT 08/30/2023 9:56 AM EDT Narrative Resulting Agency Comment Spec In Lab Jovani Richardson MD HEMATOLOGY ORDERABLE S [facility] [place] [address] * (ABNORMAL) Hemogram (08/30/2023 9:52 AM EDT) [facility] WBC 6.5 4.0 - 9.5 x10(3)/[facility] RBC 3.29(L) 4.58 - 5.54 x10(6)/[facility] Hemoglobin 10.2(L) 13.7 - 16.5 g/dL [facility] Hematocrit 31.3(L) 40.5 - 48.5 % [facility] MCV 95.1(H) 82.9 - 93.1 [facility] MCH 31.0 27.5 - 32.1 pg [facility] MCHC 32.6 32.0 - 35.7 g/dL [facility] Platelets 170 145 - 357 x10(3)/[facility] RDWSD 47.0(H) 36.0 - 45.0 [facility] RDWCV 13.3 11.4 - 13.8 % [facility] MPV 10.3 7.6 - 12.9 [facility] nRBC % Auto 0.0 % [facility] nRBC Abs Auto 0.000 0.000 - 0.000 x10(3)/[facility] Blood 08/30/2023 9:52 AM EDT 08/30/2023 9:56 AM EDT Narrative Resulting Agency Comment Spec In Lab Jovani Richardson MD HEMATOLOGY ORDERABLE S [facility] [place] [address] * (ABNORMAL) Basic Metabolic Panel (non-fasting) (08/30/2023 9:52 AM EDT) [facility] Glucose Lvl 61(L) 65 - 199 mg/dL [facility] Comment:Diabetes: >=200 mg/d L plus symptoms BUN 49(H) 10 - 20 mg/dL [facility] Creatinine 3.21(H) 0.80 - 1.50 mg/dL [facility] Sodium 140 135 - 145 mmol/L [facility] Potassium 5.0 3.5 - 5.0 mmol/L [facility] Comment: Please note: ??Patients with WBC >100,000 may have falsely elevated Potassium levels. ??For accurate Potassium quantification in these patients send serum separator tube (gold top) for subsequent determinations. ??Contact the Clinical Chemistry Laboratory if there are any questions. Chloride 109(H) 98 - 107 mmol/L [facility] CO2 17(L) 22 - 31 mmol/L [facility] Anion Gap 14 5 - 15 mmol/L [facility] Calcium 8.7 8.5 - 10.5 mg/dL [facility] Estimated GFR 20(L) >=60 mL/min/1. 73 m?? [facility] [...] [facility] [place] [address] * Phosphorus (08/30/2023 9:52 AM EDT) Phosphorus 3.8 2.5 - 4.5 mg/dL [facility] Blood 08/30/2023 9:52 AM EDT 08/30/2023 9:56 AM EDT Narrative Resulting Agency Comment Spec In Lab Jovani Richardson MD CHEMISTRY ORDERABLES Performing Organization Address City/[facility] Co de Phone Number [facility] [place] [address] * Albumin Level (08/30/2023 9:52 AM EDT) Albumin 4.4 3.2 - 5.2 g/dL [facility] Blood 08/30/2023 9:52 AM EDT 08/30/2023 9:56 AM EDT Narrative Resulting Agency Comment Spec In Lab Jovani Richardson MD CHEMISTRY ORDERABLES Performing Organization Address City/[facility] Co de Phone Number [facility] [place] [address] * Uric acid (08/30/2023 9:52 AM EDT) Pathologist [facility] Uric Acid 8.2 3.5 - 8.5 mg/dL [facility] Blood 08/30/2023 9:52 AM EDT 08/30/2023 9:56 AM EDT Narrative Resulting Agency Comment Spec In Lab Jovani Richardson MD CHEMISTRY ORDERABLES Performing Organization Address City/[facility] Co de Phone Number [facility] [place] [address] * (ABNORMAL) PTH (08/30/2023 9:52 AM EDT) PTH 145(H) 15 - 65 pg/mL [facility] Blood 08/30/2023 9:52 AM EDT 08/30/2023 9:56 AM EDT Narrative Resulting Agency Comment Spec In Lab Jovani Richardson MD CHEMISTRY ORDERABLES Performing Organization Address City/[facility] Co de Phone Number [facility] [place] [address] * Ferritin (08/30/2023 9:52 AM EDT) Ferritin 152 31 - 409 ng/mL [facility] Comment: Please note that as of 05/01/2023, the reference intervals for Ferritin have been updated. Blood 08/30/2023 9:52 AM EDT 08/30/2023 9:56 AM EDT Narrative Resulting Agency Comment Spec In Lab Jovani Richardson MD CHEMISTRY ORDERABLES Performing Organization Address [facility] Co de Phone Number [facility] [place] [address] * Iron and TIBC (08/30/2023 9:52 AM EDT) Iron 75 45 - 160 mcg/dL [facility] TIBC 251 250 - 450 mcg/dL [facility] Iron Saturation 30 20 - 50 % [facility] Blood 08/30/2023 9:52 AM EDT 08/30/2023 9:56 AM EDT Narrative Resulting Agency Comment Spec In Lab Jovani Richardson MD CHEMISTRY ORDERABLES Performing Organization Address City/[facility]/ZIP Co de Phone Number [facility] [place] [address] * Vitamin B12 (08/30/2023 9:52 AM EDT) Vitamin B-12 608 232 - 1,245 pg/mL [facility] Blood 08/30/2023 9:52 AM EDT 08/30/2023 9:56 AM EDT Narrative Resulting Agency Comment Spec In Lab Jovani Richardson MD CHEMISTRY ORDERABLES [facility] [place] [address] * Folate, serum (08/30/2023 9:52 AM EDT) [facility] Folate Lvl >20.0 4.8 - 24.2 ng/mL [facility] Blood 08/30/2023 9:52 AM EDT 08/30/2023 9:56 AM EDT Narrative Resulting Agency Comment Spec In Lab Jovani Richardson MD CHEMISTRY ORDERABLES Performing Organization Address [facility] Co de Phone Number [facility] [place] [address] * Methylmalonic acid, serum (08/30/2023 9:52 AM EDT) [facility] Methylmalonic Acid 0.38 <=0.40 nmol/mL [facility] Comment: ADDITIONAL INFORMATION This test was developed and its performance characteristics determined by [facility] in a manner consistent with CLIA requirements. This test has not been cleared or approved by the U.S. Food and Drug Administration. Test Performed by: [facility] - [address] [address] Chief Of Staff Doctor: Todd Worthington M.D. Ph.D.; CLIA# [id number] Blood 08/30/2023 9:52 AM EDT 08/30/2023 3:38 PM EDT Narrative Resulting Agency Comment Spec In Lab Jovani Richardson MD CHEMISTRY ORDERABLES Performing Organization Address City/[facility] Co de Phone Number [facility] [place] [address] * Vitamin D, 25-Hydroxy (08/30/2023 9:52 AM EDT) [facility] 25-OH Vit D Total 21 21 - 100 ng/mL [facility] 25-OH Vit D Interp Insufficient [facility] Blood 08/30/2023 9:52 AM EDT 08/30/2023 9:56 AM EDT Narrative Resulting Agency Comment Spec In Lab Jovani Richardson MD CHEMISTRY ORDERABLES [facility] [place] [address] documented in this encounter Visit Diagnoses Diagnosis CKD (chronic kidney disease) stage 4, GFR 15-29 ml/min Chronic kidney disease, Stage IV (severe) Sharma's esophagus with dysplasia Sharma's esophagus documented in this encounter Care Teams End User Support Specialist Relationship Specialty Start Date End Date Slade Tran MD [address] [place] [address] PCP - General Family Medicine 06/19/22 11/05/23 documented as of this encounter
--- OUTSIDE RECORDS SUMMARY | 2023-12-20 02:23 | XMS_ITS | Encounter Summary ---
Author Organization [facility] [place] [address] Care Team Providers Care Field Assistant Name Role Phone Slade Tran MD Primary Care Provider [phone] Encounter Details Date Type Department Care Team [...] 7:30 AM EDT Hospital Encounter [place] [address] Lawrence Gar MD [facility] [place] [address] 01/02/2024 7:30 AM EDT - 01/02/2024 8:30 AM EDT Surgery [place] [address] Lawrence Gar MD [facility] [place] [address] EGD, UPPER GI ENDOSCOPY (WRVU 2.09) 11/17/2024 4:20 PM EDT Office [place] [address] Lawrence Gar MD [facility] [place] [address] Scheduled Procedures Name Priority Associated Diagnoses Date/Ti me EGD, UPPER GI ENDOSCOPY (WRVU 2.09) Sharma's esophagus with dysplasia 01/02/2024 7:30 AM EDT documented as of this encounter Visit Diagnoses Not on filedocumented in this encounter Care Teams Field Assistant Relationship Specialty Start Date End Date Slade Tran MD [address] [place] [address] PCP - General Family Medicine 06/19/22 11/05/23 documented as of this encounter
--- OUTSIDE RECORDS SUMMARY | 2023-12-20 02:23 | XMS_ITS | Encounter Summary ---
Author Organization [facility] Address [facility] [place] [address] Care Team Providers Care Relief Captain Name Role Phone Slade Tran MD Primary Care Provider [phone] Encounter Details Date Type Department Care Team (Late st Contact Info) Description 09/25/2022 4:20 PM EDT Office [place] [address] Lawrence Gar MD [facility] [place] [address] Alcohol-induced chronic pancreatitis Social History Tobacco Use [...] for which she underwent emergency surgery in [facility] but was then transferred to [facility] because of prolonged postoperative issues regarding gastric emptying. His symptomseventually improved after what sounds like a second operation was performed at [facility] for hiatal hernia repair and perhaps fundoplication. [...] a hammer toe. His general surgeon at [facility] is considering repair of a postoperative incisional hernia as well. Current Outpatient Medications on File Prior to Visit Medication Sig Dispense Refill ??? metoprolol succinate XL (Toprol-XL) 50 mg ER 24 hr tablet Take 50 mg by mouth daily. ??? iatysy-tblrjkwh-xawawvf (Cresadi 6) 6,000-19,000 -30,000 unit capsule Take [...] care regarding chronic pancreatitis. Lawrence Gar MD floral decorator Director, GI Endoscopy Section [place] [address] Cc:Slade Tran MD [address] [place] [address] Dr [place] [address] documented in this encounter Plan of Treatment Upcoming Encounters Date Type Department Care Team (Latest Contact Info) Description 01/02/2024 7:30 AM EDT Hospital Encounter [place] [address] Lawrence Gar MD [facility] [place] [address] 01/02/2024 7:30 AM EDT - 01/02/2024 8:30 AM EDT [place] [address] Lawrence Gar MD [facility] [place] [address] EGD, UPPER GI ENDOSCOPY (WRVU 2.09) 11/17/2024 4:20 PM EDT Office [place] [phone] Lawrence Gar MD [facility] [place] [address] Scheduled Procedures Name Priority Associated Diagnoses Date/Ti me EGD, UPPER GI ENDOSCOPY (WRVU 2.09) Sharma's esophagus with dysplasia 01/02/2024 7:30 AM EDT documented as of this encounter Visit Diagnoses Diagnosis Alcohol-induced chronic pancreatitis Chronic pancreatitis Sharma's esophagus with dysplasia Sharma's esophagus documented in this encounter Care Teams Relief Captain Relationship Specialty Start Date End Date Slade Tran MD [address] [place] [address] PCP - General Family Medicine 06/19/22 11/05/23 documented as of this encounter
--- OUTSIDE RECORDS SUMMARY | 2023-12-20 02:23 | XMS_ITS | Encounter Summary ---
[place] [address] Care Team Providers Care Audio Production Engineer Name Role Phone Slade Tran MD Primary Care Provider [phone] Reason for Referral * Consultation (Routine) - Closed Specialty Diagnoses / Procedures Referred By Devaughn bobo Referred To Contact Nephrology Diagnoses Chronic kidney disease, stage IV (severe) Slade Tran MD [address] [place] [address] [facility] [address] [place] [phone] Referral ID Status Reason Start Date Expiration Date V isits Requested Visits Authorized [id number] Closed Consult, Test & Treat PCP Updated and/or Approved 06/19/2022 06/19/2023 3 3 Encounter Details Date Type Department Care Team (Latest Contact Info) Description 06/19/2022 Transcribe Orders eDH Incoming Referrals [phone] Slade Tran MD [address] [place] [address] Chronic kidney disease, stage IV (severe) [...] 7:30 AM EDT Hospital Encounter [place] [address] Lawrence Gar MD [facility] [place] [address] 01/02/2024 7:30 AM EDT - 01/02/2024 8:30 AM EDT Surgery [place] [address] Lawrence Gar MD [facility] [place] [address] EGD, UPPER GI ENDOSCOPY (WRVU 2.09) 11/17/2024 4:20 PM EDT Office Visit [place] [address] Lawrence Gar MD [facility] [place] [address] Scheduled Procedures Name Priority Associated Diagnoses Date/Ti ca EGD, UPPER GI ENDOSCOPY (WRVU 2.09) Sharma's [...] esophagus documented in this encounter Care Teams Audio Production Engineer Relationship Specialty Start Date End Date Slade Tran MD [facility] [place] [address] PCP - General Family Medicine 06/19/22 11/05/23 documented as of this encounter
--- OUTSIDE RECORDS SUMMARY | 2023-12-20 02:23 | XMS_ITS | Encounter Summary ---
Author Organization [facility] [place] [address] Care Team Providers Care Glove Former Name Role Phone Jovani Wharton DO Primary Care Provider [phone] Encounter Details Date Type Department Care Team (Late st Contact Info) Description 07/23/2021 9:15 PM EST Ancillary Procedure [place] [phone] Jovani Wharton DO [address] [place] [address] Social History Tobacco Use Types Packs/Day Years [...] 7:30 AM EDT Hospital Encounter [place] [phone] [facility] [place] [address] 01/02/2024 7:30 AM EDT - 01/02/2024 8:30 AM EDT Surgery [place] [address] [facility] [place] [address] EGD, UPPER GI ENDOSCOPY (WRVU 2.09) 11/17/2024 4:20 PM EDT Office [place] [address] [facility] [place] [address] Scheduled Procedures Name Priority Associated Diagnoses Date/Ti [...] Abdomen Pelvis (07/23/2021 9:14 PM EST) Narrative [facility] - 07/23/2021 9:14 PM EST This exam is auto-finalizing. It's purpose is for storage only. Jovani Wharton DO [employer] [employer] [facility] ORD ER[facility]LES [place], [place] documented in this encounter Visit Diagnoses Not on filedocumented in this encounter Care Teams Glove Former Relationship Specialty Start Date End Date Jovani Wharton DO [address] [place] [address] PCP - General Family Medicine 10/18/16 06/18/22 documented as of this encounter
--- OUTSIDE RECORDS SUMMARY | 2023-12-20 02:23 | XMS_ITS | Encounter Summary ---
Author Organization [facility] [place] [address] Care Team Providers Care Hydroelectric Station Chief Name Role Phone Slade Tran MD Primary Care Provider [phone] Encounter Details Date Type Department Care Team (Late st Contact Info) Description 09/24/2023 External Results Nephrology [place] [address] Karol Iverson RN Social History Tobacco Use [...] 7:30 AM EDT Hospital Encounter [place] [address] Lawrence Gar MD [facility] [place] [address] 01/02/2024 7:30 AM EDT - 01/02/2024 8:30 AM EDT Surgery [place] [phone] Lawrence Gar MD [facility] [place] [address] EGD, UPPER GI ENDOSCOPY (WRVU 2.09) 11/17/2024 4:20 PM EDT Office Visit [place] [address] Lawrence Gar MD [facility] [place] [address] Scheduled Procedures Name Priority Associated Diagnoses Date/Ti [...] on filedocumented in this encounter Care Teams Hydroelectric Station Chief Relationship Specialty Start Date End Date Slade Tran MD [employer] [place] [address] PCP - General Family Medicine 06/19/22 11/05/23 documented as of this encounter
--- OUTSIDE RECORDS SUMMARY | 2023-12-20 02:23 | XMS_ITS | Encounter Summary ---
[place] [address] Care Team Providers Care Home Support Worker Name Role Phone Slade Tran MD Primary Care Provider [phone] Encounter Details Date Type Department Care Team (Late st Contact Info) Description 09/26/2023 Telephone [place] [phone] Karol Iverosn RN Social History Tobacco Use Types Packs/Day [...] 7:30 AM EDT Hospital Encounter Gastroenterology at [place] [phone] Lawrence Gar MD [facility] [place] [address] 01/02/2024 7:30 AM EDT - 01/02/2024 8:30 AM EDT [place] [address] Lawrence Gar MD [facility] [place] [address] EGD, UPPER GI ENDOSCOPY (WRVU 2.09) 11/17/2024 4:20 PM EDT Office [place] [address] Lawrence Gar MD [facility] [place] [address] Scheduled Procedures Name Priority Associated Diagnoses Date/Ti me EGD, UPPER GI ENDOSCOPY (WRVU 2.09) Sharma's esophagus with dysplasia 01/02/2024 7:30 AM EDT documented as of this encounter Visit Diagnoses Not on filedocumented in this encounter Care Teams Home Support Worker Relationship Specialty Start Date End Date Slade Tran MD [facility] [place] [address] PCP - General Family Medicine 06/19/22 11/05/23 documented as of this encounter
--- OUTSIDE RECORDS SUMMARY | 2023-12-20 02:23 | XMS_ITS | Encounter Summary ---
Author Organization [facility] [place] [address] Care Team Providers Care Personnel Manager Name Role Phone Slade Tran MD Primary Care Provider [phone] Encounter Details Date Type Department Care Team (Late st Contact Info) Description 09/25/2023 External Results [place] [address] Karol Iverson RN Social History Tobacco Use [...] 7:30 AM EDT Hospital [place] [address] Lawrence Gar MD [facility] [place] [address] 01/02/2024 7:30 AM EDT - 01/02/2024 8:30 AM EDT [place] [phone] Lawrence Gar MD [facility] [place] [address] EGD, UPPER GI ENDOSCOPY (WRVU 2.09) 11/17/2024 4:20 PM EDT [place] [address] Lawrence Gar MD [facility] [place] [address] Scheduled Procedures Name Priority Associated Diagnoses Date/Ti [...] on filedocumented in this encounter Care Teams Personnel Manager Relationship Specialty Start Date End Date Slade Tran MD [address] [place] [address] PCP - General Family Medicine 06/19/22 11/05/23 documented as of this encounter
--- OUTSIDE RECORDS SUMMARY | 2023-12-20 02:23 | XMS_ITS | Encounter Summary ---
[place] [address] Care Team Providers Care Emr Specialist Name Role Phone Slade Tran MD Primary Care Provider [phone] Encounter Details Date Type Department Care Team (Late st Contact Info) Description 07/13/2022 Telephone [place] [phone] Patsy Quintero Social History Tobacco Use Types [...] appointment to Dr. Cong vargas available. Sent [facility] message to patient * Telephone Encounter - Patsy Quintero - 07/13/2022 1:34 PM EST Inbound/Outbound: OUTBOUND Spoke to Patient/Left Message: [facility] Notes: LVM for patient to call to reschedule his appointment cancelled by [facility] and per message sentfrom nursing that patient cannot get through to secretaries. Return calls can be handled by: Any Gastro Chief Analytics Officer documented in this encounter Plan of Treatment Upcoming Encounters Date Type Department Care Team (Latest Contact Info) Description 01/02/2024 7:30 AM EDT Hospital Encounter Gastroenterology at [place] [phone] Lawrence Gar MD [facility] [place] [address] 01/02/2024 7:30 AM EDT - 01/02/2024 8:30 AM EDT Surgery [place] [address] Lawrence Gar MD [facility] [place] [address] EGD, UPPER GI ENDOSCOPY (WRVU 2.09) 11/17/2024 4:20 PM EDT Office Visit Gastroenterology at [place] [phone] Lawrence Gar MD [facility] [place] [address] Scheduled Procedures Name Priority Associated Diagnoses Date/Ti va EGD, UPPER GI ENDOSCOPY (WRVU 2.09) Sharma's esophagus with dysplasia 01/02/2024 7:30 AM EDT documented as of this encounter Visit Diagnoses Not on filedocumented in this encounter Care Teams Emr Specialist Relationship Specialty Start Date End Date Slade Tran MD [address] [place] [address] PCP - General Family Medicine 06/19/22 11/05/23 documented as of this encounter
--- OUTSIDE RECORDS SUMMARY | 2023-12-20 02:23 | XMS_ITS | Encounter Summary ---
Author Organization [facility] [address] Care Team Providers Care Photographic Intelligence Officer Name Role Phone Jovani Wharton DO Primary Care Provider Encounter Details Date Type Department Care Team (Late st Contact Info) Description 07/25/2021 Ancillary Procedure [place] [phone] Jovani Wharton DO [address] [place], [place] [address] Social History Tobacco Use Types Packs/Day Years [...] 7:30 AM EDT Hospital Encounter [place] [phone] Lawrence Gar MD [facility] [place] [address] 01/02/2024 7:30 AM EDT - 01/02/2024 8:30 AM EDT [place] [address] Lawrence Gar MD [facility] DR [place] [address] EGD, UPPER GI ENDOSCOPY (WRVU 2.09) 11/17/2024 4:20 PM EDT Office [place] [address] Lawrence Gar MD [facility] DR [place] [address] Scheduled Procedures Name Priority Associated Diagnoses Date/Ti me EGD, UPPER GI ENDOSCOPY (WRVU 2.09) Sharma's esophagus with dysplasia 01/02/2024 7:30 AM EDT documented as of this encounter Procedures Procedure Name Priority Date/Time Associated Diagnosis Comments FILM LIBRARY STORAGE ONLY DX CHEST Routine 07/25/2021 12:00 AM EST documented in this encounter Results * Film Library- Storage Only DX Chest (07/25/2021 12:00 AM EST) Narrative [facility] - 07/26/2021 8:53 AM EST This exam is auto-finalizing. It's purpose is for storage only. Jovani Wharton DO G FILM LIBRARY ORD ERABLES [place] documented in this encounter Visit Diagnoses Not on filedocumented in this encounter Care Teams Photographic Intelligence Officer Relationship Specialty Start Date End Date Jovani Wharton DO [address] [place] [address] [address] [place] [address] PCP - General Family Medicine 10/18/16 06/18/22 documented as of this encounter
--- OUTSIDE RECORDS SUMMARY | 2023-12-20 02:23 | XMS_ITS | Encounter Summary ---
Author Organization [facility] Address [facility] [place] [address] Care Team Providers Care Hvac Designer Name Role Phone Slade Tran MD Primary Care Provider [phone] Encounter Details Date Type Department Care Team (Latest Contact Info) Description 01/21/2023 2:00 PM EDT Office Visit [place] [address] Jovani Richardson MD [facility] [place] [address] CKD (chronic kidney disease) stage 4, GFR [...] 2:00 PM EDT Nephrology/Hypertension Clinic Follow-up Note [id number] ID: 67 y.o.year-old male for follow up [...] Tablet Take 5 mg by mouth daily. nwncot-kdvhjigt-xifizwa DR (Creon 6) 6,000-19,000 -30,[address] [...] 7:30 AM EDT Hospital En[place] [address] Lawrence Gar MD [facility] [place] [address] 01/02/2024 7:30 AM EDT - 01/02/2024 8:30 AM EDT [place] [address] Lawrence Gar MD [facility] [place] [address] EGD, UPPER GI ENDOSCOPY (WRVU 2.09) 11/17/2024 4:20 PM EDT Office [place] [address] Lawrence Gar MD [facility] [place] [address] Scheduled Procedures Name Priority Associated Diagnoses Date/Ti [...] esophagus documented in this encounter Care Teams Hvac Designer Relationship Specialty Start Date End Date Slade Tran MD [address] [place] [address] [place] [address] PCP - General Family Medicine 06/19/22 11/05/23 documented as of this encounter
--- OUTSIDE RECORDS SUMMARY | 2023-12-20 02:23 | XMS_ITS | Encounter Summary ---
[place] [address] Care Team Providers Care Binder Roller Name Role Phone Jovani Wharton DO Primary Care Provider Encounter Details Date Type Department Care Team (Late st Contact Info) Description 05/24/2022 Telephone [place] [phone] Patsy Quintero Social History Tobacco Use Types [...] to schedule visit with Dr. Gar from [facility]. Return calls can be handled by: ANY GASTRO BOX PACKER documented in this encounter Plan of Treatment Upcoming Encounters Date Type Department Care Team (Latest Contact Info) Description 01/02/2024 7:30 AM EDT Hospital En[place] [address] Lawrence Gar MD [facility] DR [place] [address] 01/02/2024 7:30 AM EDT - 01/02/2024 8:30 AM EDT [place] [address] Lawrence Gar MD [facility] DR [place] [address] EGD, UPPER GI ENDOSCOPY (WRVU 2.09) 11/17/2024 4:20 PM EDT Office [place] [address] Lawrence Gar MD [facility] DR [place] [address] Scheduled Procedures Name Priority Associated Diagnoses Date/Ti me EGD, UPPER GI ENDOSCOPY (WRVU 2.09) Sharma's esophagus with dysplasia 01/02/2024 7:30 AM EDT documented as of this encounter Visit Diagnoses Not on filedocumented in this encounter Care Teams Binder Roller Relationship Specialty Start Date End Date Jovani Wharton DO [address] [place] [address] PCP - General Family Medicine 10/18/16 06/18/22 documented as of this encounter
--- OUTSIDE RECORDS SUMMARY | 2023-12-20 02:23 | XMS_ITS | Encounter Summary ---
Author Organization [facility] [place] [address] Care Team Providers Care Staff Writer Name Role Phone Slade Tran MD Primary Care Provider [phone] Encounter Details Date Type Department Care Team (Late st Contact Info) Description 09/19/2023 Telephone Nephrology [place] [address] Karol Iverson RN Social History [...] 7:30 AM EDT Hospital Encounter [place] [address] [facility] DR [place] [address] 01/02/2024 7:30 AM EDT - 01/02/2024 8:30 AM EDT Surgery [place] [address] [facility] DR [place] [address] EGD, UPPER GI ENDOSCOPY (WRVU 2.09) 11/17/2024 4:20 PM EDT Office Visit [place] [address] [facility] DR [place] [address] Scheduled Procedures Name Priority Associated Diagnoses Date/Ti me EGD, UPPER GI ENDOSCOPY (WRVU 2.09) Sharma's esophagus with dysplasia 01/02/2024 7:30 AM EDT documented as of this encounter Visit Diagnoses Not on filedocumented in this encounter Care Teams Staff Writer Relationship Specialty Start Date End Date Slade Tran MD [address] [place] [address] PCP - General Family Medicine 06/19/22 11/05/23 documented as of this encounter
--- OUTSIDE RECORDS SUMMARY | 2023-12-20 02:23 | XMS_ITS | Encounter Summary ---
Author Organization [facility] Address [facility] [place] [address] Care Team Providers Care Refinery Pipeline Operator Name Role Phone Slade Tran MD Primary Care Provider Encounter Details Date Type Department Care Team (Latest Contact Info) Description 04/09/2023 10:40 AM EST Office Visit Nephrology [place] [address] Jovani Richardson MD [facility] [place] [address] A, Nurse Clinician None CKD (chronic kidney [...] Richardson MD - 04/09/2023 10:40 AM EST [facility] [address] [place] [address] Reason for Clinic Visit: Systems Review and [...] tablet Take 50 mg by mouth daily. sihgsy-hfqwmtej-niogtjt DR (Creon 6) 6,000-19,000 -30,[address] [...] for CKD stage- specific issues. 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 Cr up slightly in the face of starting Jiardiance. We discussed the potential for dehydration on this medication as well as the nursing home benefits inspite of possible short term [...] replacement therapy (Venofer), Last dose: RN Notes: MD/TRUCK LEASING MANAGER A/P: continue oral Fe Problem: Hypertension BP: ()/() Goal (if urine alb:cr ratio is <30mg/g): </= 140/90 Goal (if urine alb:cr ratio is >30mg/g): </= 130/80 Standard Recommendations: Sodium intake < 2 Gm per day. RN Notes: MD/TRUCK LEASING MANAGER A/P: continue current medications. K has normalized; will consider transitioning from lisinopril/amlodipine to lisinopril monotherapy if K remains well controlled. Problem: Proteinuria Prot/Cre Ratio (ratio) Date Value 01/21/2023 1.5 Goal: <0.2mg/mg RN Notes: MD/TRUCK LEASING MANAGER A/P: continue lisinopril, SGLT-2 inhibitor Problem: Bone [...] on calcium carbonate Goal: 8.5-10.5mg/dl RN Notes: MD/TRUCK LEASING MANAGER A/P: continue calcitriol Problem: Nutrition Albumin Date Value 01/21/2023 4.3 g/dL 06/27/2021 4.5 g/dL 04/20/2020 4.5 gm/dL Goal: >/= 4.0 gm/dl There is no height or weight on file to calculate BMI. Goal: 20-25 kg/m2 RN Notes: /TRUCK LEASING MANAGER A/P: Problem: Dyslipidemia No results found for: LDLCHOL Goal: <100 mg/dl No results found for: TRIG Goal: <150 mg/dl Not on statin Not on ezetimibe RN Notes: MD/TRUCK LEASING MANAGER A/P: defer lipid management to Dr. Tran. Return to CKD clinic: 3 months documented in this encounter Plan of Treatment Upcoming Encounters Date Type Department Care Team (Latest Contact Info) Description 01/02/2024 7:30 AM EDT Hospital Encounter [place] [address] Lawrence Gar MD [facility] [place] [address] 01/02/2024 7:30 AM EDT - 01/02/2024 8:30 AM EDT Surgery [place] [address] Lawrence Gar MD [facility] [place] [address] EGD, UPPER GI ENDOSCOPY (WRVU 2.09) 11/17/2024 4:20 PM EDT Office [place] [address] Lawrence Gar MD [facility] [place] [address] Scheduled Procedures Name Priority Associated Diagnoses Date/Ti [...] esophagus documented in this encounter Care Teams Refinery Pipeline Operator Relationship Specialty Start Date End Date Slade Tran MD [facility] [place] [address] PCP - General Family Medicine 06/19/22 11/05/23 documented as of this encounter
--- OUTSIDE RECORDS SUMMARY | 2023-12-20 02:23 | XMS_ITS | Encounter Summary ---
Author [place] [address] Care Team Providers Care Radio Time Buyer Name Role Phone Slade Tran MD Primary Care Provider [phone] Encounter Details Date Type Department Care Team (Late st Contact Info) Description 09/18/2023 Telephone [place] [address] Karol Iverson, RN Social History Tobacco Use [...] 09/18/2023 3:45 PM EDT S/O: Call from [facility] with critical result. Creatinine 3.9. Full BMP to follow P: Above sent to Dr Richardson for review and recommendation Addendum 4/25/[address] Richardson - Please see if he's taking and PPIs or NSAIDS and stop them if so. Find out where he likes to get labs done; we need a renal US, SPEP/UPEP, serum free light chains. Orders efaxed to [facility] lab and diagnostic imaging Full BMP resulted and entered. CO2 14 and no documented bicarbonate supplementation. Message to Dr Richardson to see if changes recommendations documented in this encounter Plan of Treatment Upcoming Encounters Date Type Department Care Team (Latest Contact Info) Description 01/02/2024 7:30 AM EDT Hospital Encounter Gastroenterology at [place] [phone] Lwarence Gar MD [facility] [place] [address] 01/02/2024 7:30 AM EDT - 01/02/2024 8:30 AM EDT [place] [address] Lawrence Gar MD [facility] DR [place] [address] EGD, UPPER GI ENDOSCOPY (WRVU 2.09) 11/17/2024 4:20 PM EDT Office [place] [address] Lawrence Gar MD [facility] DR [place] [address] Scheduled Orders Name Type Priority Associated Diagnoses [...] esophagus documented in this encounter Care Teams Radio Time Buyer Relationship Specialty Start Date End Date Slade Tran MD [address] [place] [address] PCP - General Family Medicine 06/19/22 11/05/23 documented as of this encounter
--- OUTSIDE RECORDS SUMMARY | 2023-12-20 02:23 | XMS_ITS | Encounter Summary ---
Author Organization [facility] [place] [address] Care Team Providers Care Clinical Support Manager Name Role Phone Slade Tran MD Primary Care Provider [phone] Encounter Details Date Type Department Care Team [...] 7:30 AM EDT Hospital Encounter [place] [address] Lawrence Gar MD [facility] [place] [address] 01/02/2024 7:30 AM EDT - 01/02/2024 8:30 AM EDT Surgery [place] [address] Lawrence Gar MD [facility] [place] [address] EGD, UPPER GI ENDOSCOPY (WRVU 2.09) 11/17/2024 4:20 PM EDT Office [place] [address] Lawrence Gar MD [facility] [place] [address] Scheduled Procedures Name Priority Associated Diagnoses Date/Ti me EGD, UPPER GI ENDOSCOPY (WRVU 2.09) Sharma's esophagus with dysplasia 01/02/2024 7:30 AM EDT documented as of this encounter Visit Diagnoses Not on filedocumented in this encounter Care Teams Clinical Support Manager Relationship Specialty Start Date End Date Slade Tran MD [address] [place] [address] PCP - General Family Medicine 06/19/22 11/05/23 documented as of this encounter
--- OUTSIDE RECORDS SUMMARY | 2023-12-20 02:23 | XMS_ITS | Encounter Summary ---
[place] [address] Care Team Providers Care Account Executive Trainee Name Role Phone Slade Tran MD Primary Care Provider [phone] Encounter Details Date Type Department Care Team (Late st Contact Info) Description 08/30/2023 Telephone [place] [phone] Nena Edwards Social History Tobacco Use Types [...] - 08/30/2023 10:15 AM EDT Mathew Mendez [id number] Diagnosis/Indication: 3 year Please review patient chart [...] before? Yes: Date colo 5/27/21 , egd [facility] over 5 years If yes, did you [...] procedure? No You must have a responsible green party who will drive you to your procedure, stay on campus for the entire duration of your procedure, and drive you home from your procedure. Who will likely be your entry level truck driver for the procedure? *Please Verify the [...] 7:30 AM EDT Hospital Encounter [place] [address] Lawrence Gar MD [facility] [place] [address] 01/02/2024 7:30 AM EDT - 01/02/2024 8:30 AM EDT [place] [address] Lawrence Gar MD [facility] [place] [address] EGD, UPPER GI ENDOSCOPY (WRVU 2.09) 11/17/2024 4:20 PM EDT Office [place] [address] Lawrence Walters MD [facility] [place] [address] Scheduled Procedures Name Priority Associated Diagnoses Date/Ti me EGD, UPPER GI ENDOSCOPY (WRVU 2.09) Sharma's esophagus with dysplasia 01/02/2024 7:30 AM EDT documented as of this encounter Visit Diagnoses Not on filedocumented in this encounter Care Teams Account Executive Trainee Relationship Specialty Start Date End Date Slade Tran MD [address] [place] [address] [place] [address] PCP - General Family Medicine 06/19/22 11/05/23 documented as of this encounter
--- OUTSIDE RECORDS SUMMARY | 2023-12-20 02:23 | XMS_ITS | Encounter Summary ---
Author Organization [facility] [place] [address] Care Team Providers Care Glove Tagger Name Role Phone Slade Tran MD Primary Care Provider [phone] Encounter Details Date Type Department Care Team [...] 7:30 AM EDT Hospital Encounter [place] [address] Lawrence Gar MD [facility] DR [place] [address] 01/02/2024 7:30 AM EDT - 01/02/2024 8:30 AM EDT [place] [address] Lawrence Gar MD [facility] DR [place] [address] EGD, UPPER GI ENDOSCOPY (WRVU 2.09) 11/17/2024 4:20 PM EDT Office [place] [address] Lawrence Gar MD [facility] [place] [address] Scheduled Procedures Name Priority Associated Diagnoses Date/Ti me EGD, UPPER GI ENDOSCOPY (WRVU 2.09) Sharma's esophagus with dysplasia 01/02/2024 7:30 AM EDT documented as of this encounter Visit Diagnoses Not on filedocumented in this encounter Care Teams Glove Tagger Relationship Specialty Start Date End Date Slade Tran MD [address] [place] [address] PCP - General Family Medicine 06/19/22 11/05/23 documented as of this encounter
--- OUTSIDE RECORDS SUMMARY | 2023-12-20 02:23 | XMS_ITS | Encounter Summary ---
Author Organization [facility] [place] [address] Care Team Providers Care Navy Seal Name Role Phone Slade Tran MD Primary Care Provider [phone] Encounter Details Date Type Department Care Team [...] 7:30 AM EDT Hospital Encounter [place] [address] Lawrence Gar MD [facility] DR [place] [address] 01/02/2024 7:30 AM EDT - 01/02/2024 8:30 AM EDT [place] [address] Lawrence Gar MD [facility] DR [place] [address] EGD, UPPER GI ENDOSCOPY (WRVU 2.09) 11/17/2024 4:20 PM EDT Office [place] [address] Lawrence Gar MD [facility] [place] [address] Scheduled Procedures Name Priority Associated Diagnoses Date/Ti me EGD, UPPER GI ENDOSCOPY (WRVU 2.09) Sharma's esophagus with dysplasia 01/02/2024 7:30 AM EDT documented as of this encounter Visit Diagnoses Not on filedocumented in this encounter Care Teams Navy Seal Relationship Specialty Start Date End Date Slade Tran MD [address] [place] [address] PCP - General Family Medicine 06/19/22 11/05/23 documented as of this encounter
--- OUTSIDE RECORDS SUMMARY | 2023-12-20 02:23 | XMS_ITS | Encounter Summary ---
Author Organization [facility] [place] [address] Care Team Providers Care Chief Program Officer Name Role Phone Slade Tran MD Primary Care Provider [phone] Encounter Details Date Type Department Care Team (Late st Contact Info) Description 2023 Orders Only Neph[place] [phone] Lizet Hayward RN CKD (chronic kidney disease) [...] 7:30 AM EDT Hospital Encounter [place] [phone] Lawrence Gar MD [facility] [place] [address] 01/02/2024 7:30 AM EDT - 01/02/2024 8:30 AM EDT Surgery [place] [address] Lawrence Gar MD [facility] [place] [address] EGD, UPPER GI ENDOSCOPY (WRVU 2.09) 11/17/2024 4:20 PM EDT Office [place] [address] Lawrence Gar MD [facility] [place] [address] Scheduled Procedures Name Priority Associated Diagnoses Date/Ti me EGD, UPPER GI ENDOSCOPY (WRVU 2.09) Sharma's esophagus with dysplasia 01/02/2024 7:30 AM EDT documented as of this encounter Results * (ABNORMAL) Protein/Creatinine Ratio, urine (08/30/2023 10:00 AM EDT) U Creatinine 72 mg/dL [facility] U Protein Ran 187(H) 0 - 12 mg/dL [facility] Prot/Cre Ratio 2.6 ratio [facility] Urine 08/30/2023 10:0 0 AM EDT 08/30/2023 10:39 AM EDT Narrative Resulting Agency Comment Spec In Lab Jovani Richardson MD URINE ORDERABLES [facility] [place] [address] * Vitamin D, 25-Hydroxy (08/30/2023 9:52 AM EDT) 25-OH Vit D Total 21 21 - 100 ng/mL [facility] 25-OH Vit D Interp Insufficient [facility] Blood 08/30/2023 9:52 AM EDT 08/30/2023 9:56 AM EDT Narrative Resulting Agency Comment Spec In Lab Jovani Richardson MD CHEMISTRY ORDERABLES Performing Organization Address City/[facility]/ZIP Co de Phone Number [facility] [place] [address] * Methylmalonic acid, serum (08/30/2023 9:52 AM EDT) Methylmalonic Acid 0.38 <=0.40 nmol/mL [facility] Comment: ADDITIONAL INFORMATION This test was developed and its performance characteristics determined by [facility] in a manner consistent with CLIA requirements. This test has not been cleared or approved by the U.S. Food and Drug Administration. Test Performed by: [facility] [place] [address] Senior Computer Specialist: Todd Worthington M.D. Ph.D.; CLIA# [id number] Blood 08/30/2023 9:52 AM EDT 08/30/2023 3:38 PM EDT Narrative Resulting Agency Comment Spec In Lab Jovani Richardson MD CHEMISTRY ORDERABLES Performing Organization Address City/[facility]/ZIP Co de Phone Number [facility] [place] [address] * Folate, serum (08/30/2023 9:52 AM EDT) Folate Lvl >20.0 4.8 - 24.2 ng/mL [facility] Blood 08/30/2023 9:52 AM EDT 08/30/2023 9:56 AM EDT Narrative Resulting Agency Comment Spec In Lab Jovani Richardson MD CHEMISTRY ORDERABLES Performing Organization Address City/[facility]/ZIP Co de Phone Number [facility] [place] [address] * Vitamin B12 (08/30/2023 9:52 AM EDT) Vitamin B-12 608 232 - 1,245 pg/mL [facility] Blood 08/30/2023 9:52 AM EDT 08/30/2023 9:56 AM EDT Narrative Resulting Agency Comment Spec In Lab Jovani Richardson MD CHEMISTRY ORDERABLES Performing Organization Address City/[facility]/ZIP Co de Phone Number [facility] [place] [address] * Iron and TIBC (08/30/2023 9:52 AM EDT) Iron 75 45 - 160 mcg/dL [facility] TIBC 251 250 - 450 mcg/dL [facility] Iron Saturation 30 20 - 50 % [facility] Blood 08/30/2023 9:52 AM EDT 08/30/2023 9:56 AM EDT Narrative Resulting Agency Comment Spec In Lab Jovani Richardson MD CHEMISTRY ORDERABLES Performing Organization Address City/[facility]/ZIP Co de Phone Number [facility] [place] [address] * Ferritin (08/30/2023 9:52 AM EDT) Pathologist [facility] Ferritin 152 31 - 409 ng/mL [facility] Comment: Please note that as of 05/01/2023, the reference intervals for Ferritin have been updated. Blood 08/30/2023 9:52 AM EDT 08/30/2023 9:56 AM EDT Narrative Resulting Agency Comment Spec In Lab Jovani Richardson MD CHEMISTRY ORDERABLES Performing Organization Address City/[facility]/ZIP Co de Phone Number [facility] [place] [address] * (ABNORMAL) PTH (08/30/2023 9:52 AM EDT) PTH 145(H) 15 - 65 pg/mL [facility] Blood 08/30/2023 9:52 AM EDT 08/30/2023 9:56 AM EDT Narrative Resulting Agency Comment Spec In Lab Jovani Richardson MD CHEMISTRY ORDERABLES Performing Organization Address City/[facility]/ZIP Co de Phone Number [facility] [place] [address] * Uric acid (08/30/2023 9:52 AM EDT) Uric Acid 8.2 3.5 - 8.5 mg/dL [facility] Blood 08/30/2023 9:52 AM EDT 08/30/2023 9:56 AM EDT Narrative Resulting Agency Comment Spec In Lab Jovani Richardson MD CHEMISTRY ORDERABLES Performing Organization Address [facility] Co de Phone Number [facility] [place] [address] * Albumin Level (08/30/2023 9:52 AM EDT) Albumin 4.4 3.2 - 5.2 g/dL [facility] Blood 08/30/2023 9:52 AM EDT 08/30/2023 9:56 AM EDT Narrative Resulting Agency Comment Spec In Lab Jovani Richardson MD CHEMISTRY ORDERABLES Performing Organization Address City/[facility] Co de Phone Number [facility] [place] [address] * Phosphorus (08/30/2023 9:52 AM EDT) Phosphorus 3.8 2.5 - 4.5 mg/dL [facility] Blood 08/30/2023 9:52 AM EDT 08/30/2023 9:56 AM EDT Narrative Resulting Agency Comment Spec In Lab Jovani Richardson MD CHEMISTRY ORDERABLES [facility] [place] [address] * (ABNORMAL) Basic Metabolic Panel (non-fasting) (08/30/2023 9:52 AM EDT) Glucose Lvl 61(L) 65 - 199 mg/dL [facility] Comment:Diabetes: >=200 mg/d L plus symptoms BUN 49(H) 10 - 20 mg/dL [facility] Creatinine 3.21(H) 0.80 - 1.50 mg/dL [facility] Sodium 140 135 - 145 mmol/L [facility] Potassium 5.0 3.5 - 5.0 mmol/L [facility] Comment: Please note: ??Patients with WBC >100,000 may have falsely elevated Potassium levels. ??For accurate Potassium quantification in these patients send serum separator tube (gold top) for subsequent determinations. ??Contact the Clinical Chemistry Laboratory if there are any questions. Chloride 109(H) 98 - 107 mmol/L [facility] CO2 17(L) 22 - 31 mmol/L [facility] Anion Gap 14 5 - 15 mmol/L [facility] Calcium 8.7 8.5 - 10.5 mg/dL [facility] Estimated GFR 20(L) >=60 mL/min/1. 73 m?? [facility] [...] ORDERABLES [facility] [place] [address] documented in this encounter Visit Diagnoses Diagnosis CKD (chronic kidney disease) stage 4, GFR 15-29 ml/min Chronic kidney disease, Stage IV (severe) Sharma's esophagus with dysplasia Sharma's esophagus documented in this encounter Care Teams Chief Program Officer Relationship Specialty Start Date End Date Slade Tran MD [address] [place] [address] PCP - General Family Medicine 06/19/22 11/05/23 documented as of this encounter
--- OUTSIDE RECORDS SUMMARY | 2023-12-20 02:23 | XMS_ITS | Encounter Summary ---
Author Organization [facility] [place] [address] Care Team Providers Care Pediatric Cns Name Role Phone Jovani Wharton DO Primary Care Provider Encounter Details Date Type Department Care Team (Late st Contact Info) Description 07/26/2021 8:55 AM EST Ancillary Procedure [place] [phone] Jovani Wharton DO [address] [place] [address] Social History Tobacco Use Types Packs/Day Years [...] 7:30 AM EDT Hospital En[place] [phone] Lawrence Gar MD [facility] [place] [address] 01/02/2024 7:30 AM EDT - 01/02/2024 8:30 AM EDT Surgery [place] [address] Lawrence Gar MD [facility] [place] [address] EGD, UPPER GI ENDOSCOPY (WRVU 2.09) 11/17/2024 4:20 PM EDT Office [place] [address] Lawrence Gar MD [facility] [place] [address] Scheduled Procedures Name Priority Associated Diagnoses Date/Ti me EGD, UPPER GI ENDOSCOPY (WRVU 2.09) Sharma's esophagus with dysplasia 01/02/2024 7:30 AM EDT documented as of this encounter Procedures Procedure Name Priority Date/Time Associated Diagnosis Comments FILM LIBRARY STORAGE ONLY DX CHEST Routine 07/26/2021 8:53 AM EST documented in this encounter Results * Film Library- Storage Only DX Chest (07/26/2021 8:53 AM EST) Narrative [facility] - 07/26/2021 8:53 AM EST This exam is auto-finalizing. It's purpose is for storage only. Jovani Wharton DO IMG FILM LIBRARY ORD ERABLES [place], [place] documented in this encounter Visit Diagnoses Not on filedocumented in this encounter Care Teams Pediatric Cns Relationship Specialty Start Date End Date Jovani Wharton DO [address] [place] [address] PCP - General Family Medicine 10/18/16 06/18/22 documented as of this encounter
--- OUTSIDE RECORDS SUMMARY | 2023-12-20 02:23 | XMS_ITS | Encounter Summary ---
[place] [address] Care Team Providers Care Design Eng Name Role Phone Slade Tran MD Primary Care Provider [phone] Encounter Details Date Type Department Care Team (Late st Contact Info) Description 07/10/2022 [place] [phone] Patsy Quintero Social History Tobacco Use Types [...] calls can be handled by: [facility] [place] documented in this encounter Plan of Treatment Upcoming Encounters Date Type Department Care Team (Latest Contact Info) Description 01/02/2024 7:30 AM EDT Hospital [place] [address] Lawrence Gar MD [facility] [place] [address] 01/02/2024 7:30 AM EDT - 01/02/2024 8:30 AM EDT [place] [address] Lawrence Gar MD [facility] [place] [address] EGD, UPPER GI ENDOSCOPY (WRVU 2.09) 11/17/2024 4:20 PM EDT Office [place] [address] Lawrence Gar MD [facility] [place] [address] Scheduled Procedures Name Priority Associated Diagnoses Date/Ti me EGD, UPPER GI ENDOSCOPY (WRVU 2.09) Sharma's esophagus with dysplasia 01/02/2024 7:30 AM EDT documented as of this encounter Visit Diagnoses Not on filedocumented in this encounter Care Teams Design Eng Relationship Specialty Start Date End Date Slade Tran MD [facility] [place] [address] PCP - General Family Medicine 06/19/22 11/05/23 documented as of this encounter
--- OUTSIDE RECORDS SUMMARY | 2023-12-20 02:23 | XMS_ITS | Encounter Summary ---
Author Organization [facility] [place] [address] Care Team Providers Care Waterproof Bag Cutting Machine Operator Name Role Phone Slade Tran MD Primary Care Provider [phone] Encounter Details Date Type Department Care Team (Latest Contact Info) Description 01/21/2023 12:30 PM EDT Laboratory Appointment Lab [address] [place] [phone] Acute worsening of stage 4 chronic kidney [...] 7:30 AM EDT Hospital Encounter [place] [phone] Lawrence Gar MD [facility] [place] [address] 01/02/2024 7:30 AM EDT - 01/02/2024 8:30 AM EDT [place] [address] Lawrence Gar MD [facility] [place] [address] EGD, UPPER GI ENDOSCOPY (WRVU 2.09) 11/17/2024 4:20 PM EDT Office [place] [address] Lawrence Gar MD [facility] [place] [address] Scheduled Procedures Name Priority Associated Diagnoses Date/Ti [...] 2:04 PM EDT) U Creatinine 55 mg/dL [facility] U Protein Ran 84(H) 0 - 12 mg/dL [facility] Prot/Cre Ratio 1.5 ratio [facility] Urine 01/21/2023 2:04 PM EDT 01/21/2023 2:21 PM EDT Narrative Resulting Agency Comment Spec In Lab Jovani Richardson MD URINE ORDERABLES [facility] [place] [address] * (ABNORMAL) Urinalysis without microscopic (01/21/2023 2:04 PM EDT) Glucose UA Negative Negative mg/dL [facility] Protein UA 100(A) Negative mg/dL [facility] Bilirubin UA Negative Negative mg/dL [facility] Comment: Clinical correlation required for positive Urine Bilirubin results as false positive may occur with some drugs and drug related products. If a false positive is suspected a serum total bilirubin should be considered if clinically indicated. Urobilinogen UA Normal Normal mg/dL [facility] pH UA 6.0 5.0 - 8.0 [facility] Blood UA Negative Negative mg/dL [facility] Ketones UA Negative Negative mg/dL [facility] Nitrite UA Negative Negative [facility] Leukocytes UA Negative Negative [facility] Appearance UA Clear Clear [facility] Spec Randolph UA 1.015 1.005 - 1.030 [facility] Color UA Yellow Yellow [facility] Urine 01/21/2023 2:04 PM EDT 01/21/2023 2:21 PM EDT Narrative Resulting Agency Comment Spec In Lab Jovani Richardson MD URINE ORDERABLES Performing Organization Address City/State/[facility] Co de Phone Number [facility] [place] [address] * Differential, Automated (01/21/2023 12:55 PM EDT) Neutrophils % 65.6 % [facility] Neutr Abs (ANC) 3.66 1.70 - 6.10 x10(3)/[facility] Lymphocytes % 16.1 % [facility] Lymphocytes Abs 0.9 0.9 - 3.2 x10(3)/[facility] Monocytes % 10.8 % [facility] Monocyte Abs 0.6 0.3 - 0.9 x10(3)/[facility] Eosinophils % 6.6 % [facility] Eosinophils Abs 0.4 0.0 - 0.4 x10(3)/[facility] Basophils % 0.7 % [facility] Basophils Abs 0.0 0.0 - 0.1 x10(3)/[facility] Immature Gran % 0.20 % [facility] Comment: Immature granulocytes(IG's)percentage and absolute count will include metamyelocytes, myelocytes, and promyelocytes. Blood smears from CBCs yielding IG's will be scanned manually for concordance. If this scan disagrees with the automated IG or if promyelocytes are noted, a manual differential will be performed. Raya Gran Abs 0.01 0.00 - 0.04 x10(3)/[facility] Blood 01/21/2023 12:5 5 PM EDT 01/21/2023 1:11 PM EDT Narrative Resulting Agency Comment Spec In Lab Jovani Richardson MD HEMATOLOGY ORDERABLE S [facility] [place] [address] * (ABNORMAL) Hemogram (01/21/2023 12:55 PM EDT) WBC 5.6 4.0 - 9.5 x10(3)/[facility] RBC 3.09(L) 4.58 - 5.54 x10(6)/[facility] Hemoglobin 9.4(L) 13.7 - 16.5 g/dL [facility] Hematocrit 29.0(L) 40.5 - 48.5 % [facility] MCV 93.9(H) 82.9 - 93.1 fL [facility] MCH 30.4 27.5 - 32.1 pg [facility] MCHC 32.4 32.0 - 35.7 g/dL [facility] Platelets 205 145 - 357 x10(3)/[facility] RDWSD 50.4(H) 36.0 - 45.0 [facility] RDWCV 14.6(H) 11.4 - 13.8 % [facility] MPV 10.7 7.6 - 12.9 [facility] nRBC % Auto 0.0 % [facility] nRBC Abs Auto 0.000 0.000 - 0.000 x10(3)/mcL [facility] Blood 01/21/2023 12:5 5 PM EDT 01/21/2023 1:11 PM EDT Narrative Resulting Agency Comment Spec In Lab Jovani Richardson MD HEMATOLOGY ORDERABLE S [facility] [place] [address] * (ABNORMAL) Basic Metabolic Panel (non-fasting) (01/21/2023 12:55 PM EDT) Glucose Lvl 93 65 - 199 mg/dL [facility] Comment:Diabetes: >=200 mg/d L plus symptoms BUN 57(H) 10 - 20 mg/dL [facility] Creatinine 2.71(H) 0.80 - 1.50 mg/dL [facility] Sodium 140 135 - 145 mmol/L [facility] Potassium 5.6(H) 3.5 - 5.0 mmol/L [facility] Comment: Please note: ??Patients with WBC >100,000 may have falsely elevated Potassium levels. ??For accurate Potassium quantification in these patients send serum separator tube (gold top) for subsequent determinations. ??Contact the Clinical Chemistry Laboratory if there are any questions. Chloride 112(H) 98 - 107 mmol/L [facility] CO2 15(L) 22 - 31 mmol/L [facility] Anion Gap 13 5 - 15 mmol/L [facility] Calcium 8.4(L) 8.5 - 10.5 mg/dL [facility] Estimated GFR 25(L) >=60 mL/min/1. 73 m?? [place] [...] MD CHEMISTRY ORDERABLES Performing Organization Address City/[facility]/ZIP Co de Phone Number [facility] [place] [address] * (ABNORMAL) PTH (01/21/2023 12:55 PM EDT) PTH 126(H) 15 - 65 pg/mL [facility] Blood 01/21/2023 12:5 5 PM EDT 01/21/2023 1:11 PM EDT Narrative Resulting Agency Comment Spec In Lab Jovani Richardson MD CHEMISTRY ORDERABLES Performing Organization Address City/[facility]/ZIP Co de Phone Number [facility] [place] [address] * Albumin Level (01/21/2023 12:55 PM EDT) Albumin 4.3 3.2 - 5.2 g/dL [facility] Blood 01/21/2023 12:5 5 PM EDT 01/21/2023 1:11 PM EDT Narrative Resulting Agency Comment Spec In Lab Jovani Richardson MD CHEMISTRY ORDERABLES Performing Organization Address City/[facility]/ZIP Co de Phone Number [facility] [place] [address] * Phosphorus (01/21/2023 12:55 PM EDT) Phosphorus 3.5 2.5 - 4.5 mg/dL [facility] Blood 01/21/2023 12:5 5 PM EDT 01/21/2023 1:11 PM EDT Narrative Resulting Agency Comment Spec In Lab Jovani Richardson MD CHEMISTRY ORDERABLES [facility] [address] documented in this encounter Visit Diagnoses Diagnosis Acute worsening of stage 4 chronic kidney disease CKD (chronic kidney disease) stage 4, GFR 15-29 ml/min Chronic kidney disease, Stage IV (severe) Primary hypertension Unspecified essential hypertension 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
--- OUTSIDE RECORDS SUMMARY | 2023-12-20 02:23 | XMS_ITS | Encounter Summary ---
Author Organization [facility] [place] [address] Care Team Providers Care Metal Bench Patternmaker Name Role Phone Slade Tran MD Primary Care Provider [phone] Encounter Details Date Type Department Care Team (Late st Contact Info) Description 09/30/2023 Orders Only Nephrology [place] [phone] Karol Iverson, LOYD CKD (chronic kidney disease) [...] 7:30 AM EDT Hospital Encounter [place] [phone] Lawrence Gar MD [facility] [place] [address] 01/02/2024 7:30 AM EDT - 01/02/2024 8:30 AM EDT Surgery [place] [address] Lawrence Gar MD [facility] DR [place] [address] EGD, UPPER GI ENDOSCOPY (WRVU 2.09) 11/17/2024 4:20 PM EDT Office Visit [place] [address] Lawrence Gar MD [facility] DR [place] [address] Scheduled Procedures Name Priority Associated Diagnoses Date/Ti me EGD, UPPER GI ENDOSCOPY (WRVU 2.09) Sharma's esophagus with dysplasia 01/02/2024 7:30 AM EDT documented as of this encounter Results * (ABNORMAL) Protein/Creatinine Ratio, urine (11/06/2023 7:48 AM EDT) U Creatinine 69 mg/dL [facility] U Protein Ran 179(H) 0 - 12 mg/dL [facility] Prot/Cre Ratio 2.6 ratio [facility] Urine 11/06/2023 7:48 AM EDT 11/06/2023 7:58 AM EDT Narrative Resulting Agency Comment Spec In Lab Jovani Richardson MD URINE ORDERABLES [facility] [place] [address] * (ABNORMAL) PTH (11/06/2023 7:37 AM EDT) PTH 113(H) 15 - 65 pg/mL [facility] Blood 11/06/2023 7:37 AM EDT 11/06/2023 7:49 AM EDT Narrative Resulting Agency Comment Spec In Lab Jovani Richardson MD CHEMISTRY ORDERABLES [facility] [place] [address] * Uric acid (11/06/2023 7:37 AM EDT) Uric Acid 7.4 3.5 - 8.5 mg/dL [facility] Blood 11/06/2023 7:37 AM EDT 11/06/2023 7:49 AM EDT Narrative Resulting Agency Comment Spec In Lab Jovani Richardson MD CHEMISTRY ORDERABLES Performing Organization Address City/[facility]/ZIP Co de Phone Number [facility] [place] [address] * Albumin Level (11/06/2023 7:37 AM EDT) Albumin 4.1 3.2 - 5.2 g/dL [facility] Blood 11/06/2023 7:37 AM EDT 11/06/2023 7:49 AM EDT Narrative Resulting Agency Comment Spec In Lab Jovani Richardson MD CHEMISTRY ORDERABLES Performing Organization Address City/[facility]/ZIP Co de Phone Number [facility] [place] [address] * (ABNORMAL) Phosphorus (11/06/2023 7:37 AM EDT) Phosphorus 4.7(H) 2.5 - 4.5 mg/dL [facility] Blood 11/06/2023 7:37 AM EDT 11/06/2023 7:49 AM EDT Narrative Resulting Agency Comment Spec In Lab Jovani Richardson MD CHEMISTRY ORDERABLES [facility] [place] [address] * (ABNORMAL) Basic Metabolic Panel (non-fasting) (11/06/2023 7:37 AM EDT) Glucose Lvl 93 65 - 199 mg/dL [facility] Comment:Diabetes: >=200 mg/d L plus symptoms BUN 56(H) 10 - 20 mg/dL [facility] Creatinine 3.08(H) 0.80 - 1.50 mg/dL [facility] Sodium 142 135 - 145 mmol/L [facility] Potassium 5.2(H) 3.5 - 5.0 mmol/L [facility] Comment: Please note: ??Patients with WBC >100,000 may have falsely elevated Potassium levels. ??For accurate Potassium quantification in these patients send serum separator tube (gold top) for subsequent determinations. ??Contact the Clinical Chemistry Laboratory if there are any questions. Chloride 108(H) 98 - 107 mmol/L [facility] CO2 21(L) 22 - 31 mmol/L [facility] Anion Gap 13 5 - 15 mmol/L [facility] Calcium 9.0 8.5 - 10.5 mg/dL [facility] Estimated GFR 21(L) >=60 mL/min/1. 73 m?? [facility] Comment: This patient's estimated GFR [...] In Lab Jovani Richardson MD CHEMISTRY ORDERABLES [facility] [place] [address] documented in this encounter Visit Diagnoses Diagnosis CKD (chronic kidney disease) stage 4, GFR 15-29 ml/min Chronic kidney disease, Stage IV (severe) Sharma's esophagus with dysplasia Sharma's esophagus documented in this encounter Care Teams Metal Bench Patternmaker Relationship Specialty Start Date End Date Slade Tran MD [address] [place] [address] PCP - General Family Medicine 06/19/22 11/05/23 documented as of this encounter
--- OUTSIDE RECORDS SUMMARY | 2023-12-20 02:23 | XMS_ITS | Encounter Summary ---
[place] [address] Care Team Providers Care Industrial Equipment Mechanic Name Role Phone Slade Tran MD Primary Care Provider [phone] Encounter Details Date Type Department Care Team (Late st Contact Info) Description 09/11/2023 Telephone [place] [address] Lui Sanchez RN Social History Tobacco Use [...] S/O: RN received call from Rakesh at [facility] lab with critical lab value for patient. [...] 7:30 AM EDT Hospital Encounter Gastroenterology at [place] [phone] Lawrence Gar MD [facility] [place] [address] 01/02/2024 7:30 AM EDT - 01/02/2024 8:30 AM EDT [place] [address] Lawrence Gar MD [facility] [place] [address] EGD, UPPER GI ENDOSCOPY (WRVU 2.09) 11/17/2024 4:20 PM EDT Office [place] [address] Lawrence Gar MD [facility] [place] [address] Scheduled Procedures Name Priority Associated Diagnoses Date/Ti me EGD, UPPER GI ENDOSCOPY (WRVU 2.09) Sharma's esophagus with dysplasia 01/02/2024 7:30 AM EDT documented as of this encounter Visit Diagnoses Not on filedocumented in this encounter Care Teams Industrial Equipment Mechanic Relationship Specialty Start Date End Date Slade Tran MD [facility] [place] [address] PCP - General Family Medicine 06/19/22 11/05/23 documented as of this encounter
--- OUTSIDE RECORDS SUMMARY | 2023-12-20 02:23 | XMS_ITS | Encounter Summary ---
Author Organization [facility] [place] [address] Care Team Providers Care Chief Operator Hydroformer Name Role Phone Slade Tran MD Primary Care Provider [phone] Encounter Details Date Type Department Care Team [...] 7:30 AM EDT Hospital Encounter [place] [address] Lawrence Gar MD [facility] DR [place] [address] 01/02/2024 7:30 AM EDT - 01/02/2024 8:30 AM EDT Surgery [place] [address] Lawrence Gar MD [facility] DR [place] [address] EGD, UPPER GI ENDOSCOPY (WRVU 2.09) 11/17/2024 4:20 PM EDT Office [place] [address] Lawrence Gar MD [facility] [place] [address] Scheduled Procedures Name Priority Associated Diagnoses Date/Ti me EGD, UPPER GI ENDOSCOPY (WRVU 2.09) Sharma's esophagus with dysplasia 01/02/2024 7:30 AM EDT documented as of this encounter Visit Diagnoses Not on filedocumented in this encounter Care Teams Chief Operator Hydroformer Relationship Specialty Start Date End Date Slade Tran MD [address] [place] [address] PCP - General Family Medicine 06/19/22 11/05/23 documented as of this encounter
--- OUTSIDE RECORDS SUMMARY | 2023-12-20 02:23 | XMS_ITS | Encounter Summary ---
Author Organization [facility] [place] [address] Care Team Providers Care Automatic Folder Seamer Name Role Phone Slade Tran MD Primary Care Provider [phone] Encounter Details Date Type Department Care Team (Late st Contact Info) Description 03/05/2023 Telephone Nephrology [place] [address] Christiana Haq Social History Tobacco [...] 7:30 AM EDT Hospital Encounter [place] [address] Lawrence Gar MD [facility] [place] [address] 01/02/2024 7:30 AM EDT - 01/02/2024 8:30 AM EDT Surgery [place] [address] Lawrence Gar MD [facility] [place] [address] EGD, UPPER GI ENDOSCOPY (WRVU 2.09) 11/17/2024 4:20 PM EDT Office Visit [place] [address] Lawrence Gar MD [facility] [place] [address] Scheduled Procedures Name Priority Associated Diagnoses Date/Ti me EGD, UPPER GI ENDOSCOPY (WRVU 2.09) Sharma's esophagus with dysplasia 01/02/2024 7:30 AM EDT documented as of this encounter Visit Diagnoses Not on filedocumented in this encounter Care Teams Automatic Folder Seamer Relationship Specialty Start Date End Date Slade Tran MD [address] [place] [address] PCP - General Family Medicine 06/19/22 11/05/23 documented as of this encounter
--- OUTSIDE RECORDS SUMMARY | 2023-12-20 02:23 | XMS_ITS | Encounter Summary ---
Author Organization [facility] Address [facility] [place] [address] Care Team Providers Care Candles Pourer Name Role Phone Slade Tran MD Primary Care Provider [phone] Reason for Referral * Consultation (Routine) - Closed Specialty Diagnoses / Procedures Referred By Devaughn bobo Referred To Contact Nephrology Diagnoses Chronic renal disease, stage IV Slade Tran MD [address] [place] [address] Jovani Richardson MD [facility] [place] [address] Referral ID Status Reason Start Date Expiration Date V isits Requested Visits Authorized [id number] Closed Consult, Test & Treat PCP Updated and/or Approved 11/06/2022 11/06/2023 6 6 Encounter Details Date Type Department Care Team (Latest Contact Info) Description 11/06/2022 Transcribe Orders eDH Incoming Referrals [phone] Slade Tran MD [address] [place] [address] Chronic renal disease, stage IV Social [...] 7:30 AM EDT Hospital Encounter [place] [address] Lawrence Gar MD [facility] DR [place] [address] 01/02/2024 7:30 AM EDT - 01/02/2024 8:30 AM EDT [place] [address] Lawrence Gar MD [facility] DR [place] [address] EGD, UPPER GI ENDOSCOPY (WRVU 2.09) 11/17/2024 4:20 PM EDT Office [place] [address] Lawrence Gar MD [facility] DR [place] [address] Scheduled Procedures Name Priority Associated Diagnoses Date/Ti fl EGD, UPPER GI ENDOSCOPY (WRVU 2.09) Sharma's [...] esophagus documented in this encounter Care Teams Candles Pourer Relationship Specialty Start Date End Date Slade Tran MD [facility] [place] [phone] PCP - General Family Medicine 06/19/22 11/05/23 documented as of this encounter
--- OUTSIDE RECORDS SUMMARY | 2023-12-20 02:23 | XMS_ITS | Encounter Summary ---
Author Organization [facility] [place] [address] Care Team Providers Care Fourdrinier Machine Operator Name Role Phone Slade Tran MD Primary Care Provider [phone] Reason for Visit * Consultation (Routine) - Closed Specialty Diagnoses / Procedures Referred By Devaughn bobo Referred To Contact Nephrology Diagnoses Chronic kidney disease, stage IV (severe) Slade Tran MD [address] [place] [address] [place] [address] [facility] [address] [place] [phone] Referral ID Status Reason Start Date Expiration Date V isits Requested Visits Authorized [id number] Closed Consult, Test & Treat PCP Updated and/or Approved 06/19/2022 06/19/2023 3 3 Encounter Details Date Type Department Care Team (Latest Contact Info) Description 08/17/2022 10:30 AM EDT Office Visit Ne[place] [address] Jovani Richardson MD [facility] [place] [address] Acute worsening of stage 4 [...] 10:30 AM EDT Nephrology/Hypertension Clinic Follow-up Note [id number] ID: 67 y.o.year-old male for follow up [...] Take 50 mg by mouth daily. ??? kcaqay-yxoebzuj-tzrpwpa DR (Creon 6) 6,000-19,000 -30,000 unit Capsule, [...] [address] capsule Daily ??? [DISCONTINUED] [employer] Kit Sodium Bicarb 1/2 teaspoon, [...] labs in 1 month (orders sent to [facility]) - if labs are stable, rtc [...] 7:30 AM EDT Hospital Encounter [place] [address] Lawrence Gar MD [facility] DR [place] [address] 01/02/2024 7:30 AM EDT - 01/02/2024 8:30 AM EDT Surgery [place] [address] Lawrence Gar MD [facility] [place] [address] EGD, UPPER GI ENDOSCOPY (WRVU 2.09) 11/17/2024 4:20 PM EDT Office [place] [address] Lawrence Gar MD [facility] [place] [address] Scheduled Procedures Name Priority Associated Diagnoses Date/Ti [...] PM EDT) Glucose UA Negative Negative mg/dL [facility] Protein UA 100(A) Negative mg/dL [facility] Bilirubin UA Negative Negative mg/dL [facility] Comment: Clinical correlation required for positive Urine Bilirubin results as false positive may occur with some drugs and drug related products. If a false positive is suspected a serum total bilirubin should be considered if clinically indicated. Urobilinogen UA Normal Normal mg/dL [facility] pH UA 6.0 5.0 - 8.0 [facility] Blood UA Negative Negative mg/dL [facility] Ketones UA Negative Negative mg/dL [facility] Nitrite UA Negative Negative [facility] Leukocytes UA Negative Negative mcL [facility] Appearance UA Clear Clear [facility] Spec [place] UA 1.015 1.005 - 1.030 [facility] Color UA Yellow Yellow [facility] Urine 01/21/2023 2:04 PM EDT 01/21/2023 2:21 PM EDT Narrative Resulting Agency Comment Spec In Lab Jovani Richardson MD URINE ORDERABLES Performing Organization Address [facility] Co de Phone Number [facility] [place] [address] * (ABNORMAL) Protein/Creatinine Ratio, urine (01/21/2023 2:04 PM EDT) U Creatinine 55 mg/dL [facility] U Protein Ran 84(H) 0 - 12 mg/dL [facility] Prot/Cre Ratio 1.5 ratio [facility] Urine 01/21/2023 2:04 PM EDT 01/21/2023 2:21 PM EDT Narrative Resulting Agency Comment Spec In Lab Jovani Richardson MD URINE ORDERABLES Performing Organization Address [facility] Co de Phone Number [facility] [place] [address] * Phosphorus (01/21/2023 12:55 PM EDT) Phosphorus 3.5 2.5 - 4.5 mg/dL [facility] Blood 01/21/2023 12:5 5 PM EDT 01/21/2023 1:11 PM EDT Narrative Resulting Agency Comment Spec In Lab Jovani Richardson MD CHEMISTRY ORDERABLES Performing Organization Address City/[facility] Co de Phone Number [facility] [place] [address] * Albumin Level (01/21/2023 12:55 PM EDT) Albumin 4.3 3.2 - 5.2 g/dL [facility] Blood 01/21/2023 12:5 5 PM EDT 01/21/2023 1:11 PM EDT Narrative Resulting Agency Comment Spec In Lab Jovani Richardson MD CHEMISTRY ORDERABLES [facility] [place] [address] * (ABNORMAL) PTH (01/21/2023 12:55 PM EDT) PTH 126(H) 15 - 65 pg/mL [facility] Blood 01/21/2023 12:5 5 PM EDT 01/21/2023 1:11 PM EDT Narrative Resulting Agency Comment Spec In Lab Jovani Richardson MD CHEMISTRY ORDERABLES Performing Organization Address City/[facility]/ZIP Co de Phone Number [facility] [place] [address] * (ABNORMAL) Basic Metabolic Panel (non-fasting) (01/21/2023 12:55 PM EDT) Pathologist [facility] Glucose Lvl 93 65 - 199 mg/dL [facility] Comment:Diabetes: >=200 mg/d L plus symptoms BUN 57(H) 10 - 20 mg/dL [facility] Creatinine 2.71(H) 0.80 - 1.50 mg/dL [facility] Sodium 140 135 - 145 mmol/L [facility] Potassium 5.6(H) 3.5 - 5.0 mmol/L [facility] Comment: Please note: ??Patients with WBC >100,000 may have falsely elevated Potassium levels. ??For accurate Potassium quantification in these patients send serum separator tube (gold top) for subsequent determinations. ??Contact the Clinical Chemistry Laboratory if there are any questions. Chloride 112(H) 98 - 107 mmol/L [facility] CO2 15(L) 22 - 31 mmol/L [facility] Anion Gap 13 5 - 15 mmol/L [facility] Calcium 8.4(L) 8.5 - 10.5 mg/dL [facility] Estimated GFR 25(L) >=60 mL/min/1. 73 m?? [facility] Comment: This patient's estimated GFR [...] Richardson MD CHEMISTRY ORDERABLES Performing Organization Address [facility]/ZIP Co de Phone Number [facility] [place] [address] * Urinalysis Microscopic Exam (08/17/2022 11:30 AM EDT) RBC UA 1 0 - 3 /HPF [facility] WBC UA 0 0 - 3 /HPF [facility] Urine Urine / Unknown 08/17/2022 1 1:30 AM EDT 08/17/2022 1:08 PM EDT Narrative Resulting Agency Comment Spec In Lab Jovani Richardson MD URINE ORDERABLES Performing Organization Address City/[facility]/ZIP Co de Phone Number [facility] [place] [address] * (ABNORMAL) Urinalysis with reflex Culture (08/17/2022 11:30 AM EDT) Glucose UA Negative Negative mg/dL [facility] Protein UA >=300(A) Negative mg/dL [facility] Bilirubin UA Negative Negative mg/dL [facility] Comment: Clinical correlation required for positive Urine Bilirubin results as false positive may occur with some drugs and drug related products. If a false positive is suspected a serum total bilirubin should be considered if clinically indicated. Urobilinogen UA Normal Normal mg/dL [facility] pH UA 6.0 5.0 - 8.0 [facility] Blood UA Negative Negative mg/dL [facility] Ketones UA Negative Negative mg/dL [facility] Nitrite UA Negative Negative [facility] Leukocytes UA Negative Negative mcL [facility] Appearance UA Clear Clear [facility] Spec [place] UA 1.014 1.005 - 1.030 [facility] Color UA Yellow Yellow [facility] Culture Reflexed No [facility] Urine Urine / Unknown 08/17/2022 1 1:30 AM EDT 08/17/2022 1:08 PM EDT Narrative Resulting Agency Comment Spec In Lab Jovani Richardson MD URINE ORDERABLES Performing Organization Address City/State/[facility] Co de Phone Number [facility] [place] [phone] documented in this encounter Visit Diagnoses Diagnosis Acute worsening of stage 4 chronic kidney disease- Primary CKD (chronic kidney disease) stage 4, GFR 15-29 ml/min Chronic kidney disease, Stage IV (severe) Primary hypertension Unspecified essential hypertension 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
--- OUTSIDE RECORDS SUMMARY | 2023-12-20 02:24 | XMS_ITS | Encounter Summary ---
Author Organization [facility] [place] [address] Care Team Providers Care Cook Helper Pastry Name Role Phone DioJovani franks Primary Care Provider Encounter Details Date Type Department Care Team (Late st Contact Info) Description 07/11/2018 Telephone Nephrology [place] [address] Nehal Ortiz Social History Tobacco Use Types [...] 7:30 AM EDT Hospital Encounter [place] [phone] Lawrence Gar MD [facility] DR [place] [address] 01/02/2024 7:30 AM EDT - 01/02/2024 8:30 AM EDT Surgery [place] [address] Lawrence Gar MD [facility] DR [place] [address] EGD, UPPER GI ENDOSCOPY (WRVU 2.09) 11/17/2024 4:20 PM EDT Office [place] [address] Lawrence Gar MD [facility] DR [place] [address] Scheduled Procedures Name Priority Associated Diagnoses Date/Ti me EGD, UPPER GI ENDOSCOPY (WRVU 2.09) Sharma's esophagus with dysplasia 01/02/2024 7:30 AM EDT documented as of this encounter Visit Diagnoses Not on filedocumented in this encounter Care Teams Cook Helper Pastry Relationship Specialty Start Date End Date Jovani Wharton DO [address] [place] [address] PCP - General Family Medicine 10/18/16 06/18/22 documented as of this encounter
--- OUTSIDE RECORDS SUMMARY | 2023-12-20 02:24 | XMS_ITS | Encounter Summary ---
Author Organization [facility] [place] [address] Care Team Providers Care Supervisor Spinning Name Role Phone Jovani Wharton DO Primary Care Provider Encounter Details Date Type Department Care Team (Late st Contact Info) Description 06/02/2020 Ancillary Procedure [place] [phone] Jovani Wharton DO [address] [place], [place] [address] Social History Tobacco Use Types Packs/Day Years [...] 7:30 AM EDT Hospital En[place] [address] Lawrence Gar MD [facility] DR [place] [address] 01/02/2024 7:30 AM EDT - 01/02/2024 8:30 AM EDT [place] [phone] Lawrence Gar MD [facility] DR [place]STRO[place] [address] EGD, UPPER GI ENDOSCOPY (WRVU 2.09) 11/17/2024 4:20 PM EDT Office [place] [address] Lawrence Gar MD [facility] DR [place]STROENTER[place] [address] Scheduled Procedures Name Priority Associated Diagnoses Date/Ti [...] only. Jovani [place] [employer] ORD ERABLES [place], [place] documented in this encounter Visit Diagnoses Not on filedocumented in this encounter Care Teams Supervisor Spinning Relationship Specialty Start Date End Date Jovani Wharton DO [address] [place] [address] PCP - General Family Medicine 10/18/16 06/18/22 documented as of this encounter
--- OUTSIDE RECORDS SUMMARY | 2023-12-20 02:24 | XMS_ITS | Encounter Summary ---
Author Organization [facility] [place] [address] Care Team Providers Care Alum Plant Operator Name Role Phone DioJovani franks Primary Care Provider Encounter Details Date Type Department Care Team (Late st Contact Info) Description 08/22/2020 Telephone [place] [address] Cynthia Kim Social History Tobacco Use Types [...] 7:30 AM EDT Hospital [place] [address] Lawrence Gar MD [facility] [place] [address] 01/02/2024 7:30 AM EDT - 01/02/2024 8:30 AM EDT [place] [address] Lawrence Gar MD [facility] [place] [address] EGD, UPPER GI ENDOSCOPY (WRVU 2.09) 11/17/2024 4:20 PM EDT Office [place] [address] Lawrence Gar MD [facility] [place] [address] Scheduled Procedures Name Priority Associated Diagnoses Date/Ti me EGD, UPPER GI ENDOSCOPY (WRVU 2.09) Sharma's esophagus with dysplasia 01/02/2024 7:30 AM EDT documented as of this encounter Visit Diagnoses Not on filedocumented in this encounter Care Teams Alum Plant Operator Relationship Specialty Start Date End Date Jovani Wharton DO [address] [place] [address] PCP - General Family Medicine 10/18/16 06/18/22 documented as of this encounter
--- OUTSIDE RECORDS SUMMARY | 2023-12-20 02:24 | XMS_ITS | Encounter Summary ---
Author Organization [facility], [facility] Address [facility] [place] [address] Care Team Providers Care Low Altitude Air Defense Officer Name Role Phone DioJovani franks Primary Care Provider Encounter Details Date Type Department Care Team (Latest Contact Info) Description 06/20/2020 1:45 PM EST Clinical Support Dermatology at [address] [address] Dominguez Lopez MD [facility] [place] [address] Visit for wound check Social History Tobacco [...] antibiotic the evening before. Prescription sent to [facility] in [place], [place]. Dominguez Lopez MD PhD Mohs Micrographic Surgery and Dermatologic Oncology Department of Dermatology documented in this encounter Plan of Treatment Upcoming Encounters Date Type Department Care Team (Latest Contact Info) Description 01/02/2024 7:30 AM EDT Hospital Encounter [place] [address] Lawrence Gar MD [facility] [place] [address] 01/02/2024 7:30 AM EDT - 01/02/2024 8:30 AM EDT [place] [address] Lawrence Gar MD [facility] [place] [address] EGD, UPPER GI ENDOSCOPY (WRVU 2.09) 11/17/2024 4:20 PM EDT Office [place] [address] Lawrence Gar MD [facility] [place] [address] Scheduled Procedures Name Priority Associated Diagnoses Date/Ti me EGD, UPPER GI ENDOSCOPY (WRVU 2.09) Sharma's esophagus with dysplasia 01/02/2024 7:30 AM EDT documented as of this encounter Visit Diagnoses Diagnosis Visit for wound check Encounter for other specified aftercare Sharma's esophagus with dysplasia Sharma's esophagus documented in this encounter Care Teams Low Altitude Air Defense Officer Relationship Specialty Start Date End Date Jovani Wharton DO [address] [place] [address] [address] PCP - General Family Medicine 10/18/16 06/18/22 documented as of this encounter
--- OUTSIDE RECORDS SUMMARY | 2023-12-20 02:24 | XMS_ITS | Encounter Summary ---
Author Organization [facility] [place] [address] Care Team Providers Care Judicial Law Clerk Name Role Phone DioJovani franks Primary Care Provider Encounter Details Date Type Department Care Team (Late st Contact Info) Description 08/22/2020 Telephone [place] [address] Cynthia Kim Social History Tobacco Use Types [...] 7:30 AM EDT Hospital [place] [address] Lawrence Gar MD [facility] [place] [address] 01/02/2024 7:30 AM EDT - 01/02/2024 8:30 AM EDT [place] [address] Lawrence Gar MD [facility] [place] [address] EGD, UPPER GI ENDOSCOPY (WRVU 2.09) 11/17/2024 4:20 PM EDT Office [place] [address] Lawrence Gar MD [facility] [place] [address] Scheduled Procedures Name Priority Associated Diagnoses Date/Ti me EGD, UPPER GI ENDOSCOPY (WRVU 2.09) Sharma's esophagus with dysplasia 01/02/2024 7:30 AM EDT documented as of this encounter Visit Diagnoses Not on filedocumented in this encounter Care Teams Judicial Law Clerk Relationship Specialty Start Date End Date Jovani Wharton DO [address] [place] [address] PCP - General Family Medicine 10/18/16 06/18/22 documented as of this encounter
--- OUTSIDE RECORDS SUMMARY | 2023-12-20 02:24 | XMS_ITS | Encounter Summary ---
Author Organization [facility] Address [facility] [place] [address] Care Team Providers Care Outsewer Name Role Phone DioJovani franks Primary Care Provider Reason for Visit * Reason Comments Skin Check Encounter Details Date Type Department Care Team (Late st Contact Info) Description 07/13/2019 11:15 AM EST Office Visit Dermatology at [address] [address] Deb Hamlin [facility] [place] [address] Actinic keratoses; Actinic skin damage; History of [...] ?? Other No ? 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 Medications: allopurinoL, amLODIPine, [...] defined scaly pink papules on the right mu-ism x 3, right mid superior helix x [...] and signed by: Deb Hamlin MD Dermatology [facility] documented in this encounter Plan of Treatment Upcoming Encounters Date Type Department Care Team (Latest Contact Info) Description 01/02/2024 7:30 AM EDT Hospital Encounter [place] [address] Lawrence Gar MD [facility] [place] [address] 01/02/2024 7:30 AM EDT - 01/02/2024 8:30 AM EDT Surgery [place] [address] Lawrence Gar MD [facility] [place] [address] EGD, UPPER GI ENDOSCOPY (WRVU 2.09) 11/17/2024 4:20 PM EDT Office [place] [address] Lawrence Gar MD [facility] [place] [address] Scheduled Procedures Name Priority Associated Diagnoses Date/Ti [...] esophagus documented in this encounter Care Teams Outsewer Relationship Specialty Start Date End Date Jovani Wharton DO [address] [place] [address] PCP - General Family Medicine 10/18/16 06/18/22 documented as of this encounter
--- OUTSIDE RECORDS SUMMARY | 2023-12-20 02:24 | XMS_ITS | Encounter Summary ---
Author Organization [facility] [place] [address] Care Team Providers Care Hogshead Wrecker Name Role Phone Dio, Jovani MCCAIN Primary Care Provider [phone] Encounter Details Date Type Department Care Team (Late st Contact Info) Description 10/20/2020 1:00 PM EDT - 10/20/2020 2:30 PM EDT [place] [address] Lawrence Gar MD [facility] DR [place] [address] EGD WITH BIOPSY (WRVU 2.39) Social History [...] the day after the procedure, use an opae-zsi-ninmtmh spray to numb your throat. Sucking on [...] occurs, please contact your Doctor. Please call [phone] before 8pm Mon-Fri with problems, questions or concerns. If you call after 8pm or on weekends, call the Hospital at [phone] and ask to speak to the Anesthesiology Physician lead mason tender and the container crane operator will contact that person for you. When should you call for help? Call [phone] anytime you think you may need emergency [...] any problems. Where can you learn more? [facility] View your After Visit Summary and more online at [email or web address] If you would like to provide [...] cost to you. Content Version: 12.2 ?? [id number] [employer]. Care instructions adapted under license by [employer]. If you have questions about a medical condition or this instruction, always ask your healthcare professional. [employer] disclaims any warranty or liability for your [...] the day after the procedure, use an uddg-oti-fbaykac spray to numb your throat. Sucking on [...] occurs, please contact your Doctor. Please call [phone] before 8pm Mon-Fri with problems, questions or concerns. If you call after 8pm or on weekends, call the Hospital at [phone] and ask to speak to the Anesthesiology Physician lead mason tender and the container crane operator will contact that person for you. When should you call for help? Call [phone] anytime you think you may need emergency [...] any problems. Where can you learn more? [facility]- View your After Visit Summary and more online at [email or web address] If you would like to provide [...] cost to you. Content Version: 12.2 ?? 4093-2307 [employer]. Care instructions adapted under license by [employer]. If you have questions about a medical condition or this instruction, always ask your healthcare professional. [employer] disclaims any warranty or liability for your [...] x 3 weeks 40 g 08/11/2020 08/17/2022 yyucdx-gztwokpz-pckoqp e (Creon 6) 6,000-19,000 -30,000 unit Capsule, [...] to Encounter Medication Sig Dispense Refill ??? gsetjv-infrxdkn-idcjyas DR (Creon 6) 6,000-19,000 -30,000 unit Capsule, [...] Gar MD - 10/20/2020 1:12 PM EDT [facility] Operative Note Patient Name: Mathew Mendez : [id number] MR#: [id number] Case Date: 10/20/2020 Surgeon: Surgeon(s) and Role: [...] 7:30 AM EDT Hospital En[place] [address] Lawrence Gar MD [facility] DR [place] [address] 01/02/2024 7:30 AM EDT - 01/02/2024 8:30 AM EDT [place] [address] Lawrence Gar MD [facility] DR [place] [address] EGD, UPPER GI ENDOSCOPY (WRVU 2.09) 11/17/2024 4:20 PM EDT Office [place] [address] Lawrence Gar MD [facility] DR [place] [address] Scheduled Procedures Name Priority Associated Diagnoses Date/Ti [...] 2:16 PM EDT Colonoscopy, Remv Florence Snare ([id number]) 10/20/2020 1:03 PM EDT Alcohol-induced chronic pancreatitis Screen for colon cancer Gastroesophageal reflux disease, unspecified whether esophagitis present UPPER EUS- ENDOSCOPIC ULTRASOUND (WRVU 3.47) 10/20/2020 1:03 PM EDT Alcohol-induced chronic pancreatitis Screen for colon cancer Gastroesophageal reflux disease, unspecified whether esophagitis present Upper Gi Endoscopy, Biopsy ([id number]) 10/20/2020 1:03 PM EDT Alcohol-induced chronic pancreatitis Screen for colon cancer Gastroesophageal reflux disease, unspecified whether esophagitis present UPPER EUS-ENDOSCOPIC ULTRASOUND Routine 10/20/2020 12:46 PM EDT COLONOSCOPY Routine 10/20/2020 12:46 PM EDT documented in this encounter Results * Surgical Pathology Report (10/20/2020 2:16 PM EDT) FINAL DIAGNOSIS (AP) [id number] ? Location: 4T; 12; A The signing pathologist has (i) examined [...] Shyla Verified: ??11/02/2020 15:00 ??Pathologist Performed at: ??-[facility] Dept. of Pathology, [place], [place] DISCUSSION A - ??The findings are [...] bisected ?E3: ??Polyp inked and bisected ??MLL 11/02/2020 3:00 PM EDT [facility] 10/20/2020 2:16 PM EDT Lawrence Gar MD PATHOLOGY/CYTOLOGY Eugenie [place] [address] * Specimen to Pathology (10/20/2020 2:16 PM EDT) AP Specimen 10/20/2020 2:16 PM EDT 10/20/2020 2:16 PM EDT Narrative [facility] - 10/20/2020 2:16 PM EDT Specimen requisition ordered. ??Separate Pathology report to follow Lawrence Gar MD PATHOLOGY/[place] [address] * Specimen to Pathology (10/20/2020 2:16 PM EDT) AP Specimen 10/20/2020 2:16 PM EDT 10/20/2020 2:16 PM EDT Narrative [facility] - 10/20/2020 2:16 PM EDT Specimen requisition ordered. ??Separate Pathology report to follow Lawrence Gar MD PATHOLOGY/[place] [address] * Specimen to Pathology (10/20/2020 2:16 PM EDT) AP Specimen 10/20/2020 2:16 PM EDT 10/20/2020 2:16 PM EDT Narrative [facility] - 10/20/2020 2:16 PM EDT Specimen requisition ordered. ??Separate Pathology report to follow Lawrence Gar MD PATHOLOGY/[place] [address] * Specimen to Pathology (10/20/2020 2:16 PM EDT) AP Specimen 10/20/2020 2:16 PM EDT 10/20/2020 2:16 PM EDT Narrative [facility] - 10/20/2020 2:16 PM EDT Specimen requisition ordered. ??Separate Pathology report to follow Lawrence Gar MD PATHOLOGY/CYTOLOGY O S[place]YA Performing Organization Address [facility] [place] [address] * Specimen to Pathology (10/20/2020 2:16 PM EDT) AP Specimen 10/20/2020 2:16 PM EDT 10/20/2020 2:16 PM EDT Narrative [facility] - 10/20/2020 2:16 PM EDT Specimen requisition ordered. ??Separate Pathology report to follow Lawrence Gar MD PATHOLOGY/CYTOLOGY O S[place]YA Performing Organization Address [facility] [place] [address] * UPPER EUS-ENDOSCOPIC ULTRASOUND (10/20/2020 12:46 PM EDT) UPPER ENDOSCOPIC ULTRASOUND [facility] Endoscopy Procedure Date: 10/20/2020 12:46 PM ? Patient Name: Mathew Mendez ? N: [id number] ? Date of : 1955 ? Age: 65 ? Order #: [id number] ? Instrument Name: [id number] ? Procedure: ? Upper EUS Indications: ? Dysphagia, Follow-up of ? gastro-esophageal reflux disease Providers: ? Lawrence Gar MD, Sarina Pinto, ? Ilya Scales Referring : ?Jovani Wharton, DO Medicines: ? Monitored Anesthesia Care Complications: ? No immediate complications. Procedure: ? Pre-Anesthesia Assessment: ? - [place] Protocol: ? - Pre-procedure Verification: Prior ? [...] by the physician, the nurse, ? the nurse transitional and the transmission technician in ? the pre-procedure area in [...] Procedure Code(s): ?? --- Professional --- ? 79030, Esophagogastroduodenos copy, ? flexible, transoral; with endoscopic ? ultrasound examination, including the ? esophagus, stomach, and either the ? duodenum or a surgically altered ? stomach where the jejunum is examined ? distal to the anastomosis ? 34809, Esophagogastroduodenos copy, ? flexible, transoral; with biopsy, [...] ? disease without esophagitis CPT copyright 2019 [employer]. All rights reserved. The codes documented in this report are preliminary and upon transportation assistant review may be revised to meet current compliance requirements. Attending Participation: ? I was present and participated during the entire ? procedure, including non-yates portions. ? Lawrence Gar MD 10/20/2020 4:41:03 PM This report has been signed electronically. Number of Addenda: 0 Note Initiated On: 10/20/2020 12:46 PM [facility] 10/20/2020 12:4 6 PM EDT Jovani Lowryderick DO GENERAL SURGICAL ORD ERABLES [facility] * COLONOSCOPY (10/20/2020 12:46 PM EDT) COLONOSCOPY [facility] Endoscopy Procedure Date: 10/20/2020 12:46 PM ? Patient Name: Mathew Mendez ? Date of : 1955 ? Age: 65 ? Order #: [id number] ? Instrument Name: [id number] ? Procedure: ? Colonoscopy Indications: ? Screening for colorectal malignant ? neoplasm Providers: ? Lawrence Gar MD, Sarina Pinto, ? Adela Patino, Ilya Schroeder Referring : ?Jovani Wharton, DO Medicines: ? Monitored Anesthesia Care Complications: ? No immediate complications. Procedure: ? Pre-Anesthesia Assessment: ? - [place] Protocol: ? - Pre-procedure Verification: Prior ? [...] by the physician, the nurse, ? the nurse transitional and the transmission technician in ? the procedure room. ? [...] Procedure Code(s): ?? --- Professional --- ? 31858, Colonoscopy, flexible; with ? removal of tumor(s), [...] and ? anastomosis status CPT copyright 2019 [employer]. All rights reserved. The codes documented in this report are preliminary and upon transportation assistant review may be revised to meet current [...] CRNA) documented in this encounter Care Teams Hogshead Wrecker Relationship Specialty Start Date End Date Jovani Wharton DO [address] [place] [address] [address] [facility] [address] [place] [address] PCP - General Family Medicine 10/18/16 06/18/22 documented as of this encounter
--- OUTSIDE RECORDS SUMMARY | 2023-12-20 02:24 | XMS_ITS | Encounter Summary ---
Author Organization [facility] Address [facility] [place] [address] Care Team Providers Care Press Operator Printing Name Role Phone Jovani Wharton DO Primary Care Provider Reason for Visit * Consultation (Routine) - Closed Specialty Diagnoses / Procedures Referred By Devaughn bobo Referred To Contact Nephrology Diagnoses Chronic kidney disease stage 3 BAR73-02 ml/min Jovani Wharton DO [address] [place] [address] Jorge Gonzales MD [facility] [place] [address] Referral ID Status Reason Start Date Expiration Date V isits Requested Visits Authorized [id number] Closed Consult, Test & Treat Connection Center 06/12/2017 06/12/2018 1 1 Encounter Details Date Type Department Care Team (Latest Contact Info) Description 07/10/2017 11:00 AM EST Office Visit Ne[place] [address] Jorge Gonzales MD [facility] [place] [address] Anemia of chronic renal failure, stage 3 [...] 7:30 AM EDT Hospital Encounter [place] [address] Lawrence Gar MD [facility] [place] [address] 01/02/2024 7:30 AM EDT - 01/02/2024 8:30 AM EDT [place] [address] Lawrence Gar MD [facility] [place] [address] EGD, UPPER GI ENDOSCOPY (WRVU 2.09) 11/17/2024 4:20 PM EDT Office [place] [address] Lawrence Gar MD [facility] [place] [address] Scheduled Procedures Name Priority Associated Diagnoses Date/Ti pr EGD, UPPER GI ENDOSCOPY (WRVU 2.09) Sharma's [...] Glucose Lvl 98 65 - 199 mg/dL [facility] Comment:Diabetes: >=200 mg/d L plus symptoms BUN 32(H) 10 - 20 mg/dL [facility] Creatinine 1.48 0.80 - 1.50 mg/dL [facility] Sodium 140 135 - 145 mmol/L [facility] Potassium 4.3 3.5 - 5.0 mmol/L [facility] Comment: Please note: ??Patients with WBC >100,000 may have falsely elevated Potassium levels. ??For accurate Potassium quantification in these patients send serum separator tube (gold top) for subsequent determinations. ??Contact the Clinical Chemistry Laboratory if there are any questions. Chloride 102 98 - 107 mmol/L [facility] CO2 23 22 - 31 mmol/L [facility] Anion Gap 15 5 - 15 mmol/L [facility] Calcium 8.9 8.5 - 10.5 mg/dL [facility] Estimated GFR 48(L) >=60 [facility] Comment: The reported eGFR should be multiplied by 1.2 for patients. The MDRD is not an appropriate measure of renal function for patients with body mass extremes or in patients with acute kidney failure. [email or web address] [email or web address] Blood specimen (specimen) 07/10/2017 11:53 AM EST 07/10/2017 11:59 AM EST Narrative Resulting Agency Comment Spec In Lab Jorge Gonzales MD CHEMISTRY ORDERABLE S Performing Organization Address City/[facility]/ZIP Co de Phone Number [facility] [place] [address] * (ABNORMAL) Protein/Creatinine Ratio, urine (07/10/2017 10:30 AM EST) U Creatinine 71 mg/dL [facility] U Protein Ran 139(H) 0 - 12 mg/dL [facility] Prot/Cre Ratio 2.0 ratio [facility] Urine specimen (specimen) 07/10/2017 10:30 AM EST 07/10/2017 1:12 PM EST Narrative Resulting Agency Comment Spec In Lab Jorge Gonzales MD URINE ORDERABLES Performing Organization Address [facility] Co de Phone Number [facility] [place] [address] documented in this encounter Visit Diagnoses Diagnosis Anemia of chronic renal failure, stage 3 (moderate) Sharma's esophagus with dysplasia Sharma's esophagus documented in this encounter Care Teams Press Operator Printing Relationship Specialty Start Date End Date Jovani Wharton DO [address] [place] [address] PCP - General Family Medicine 10/18/16 06/18/22 documented as of this encounter
--- OUTSIDE RECORDS SUMMARY | 2023-12-20 02:24 | XMS_ITS | Encounter Summary ---
Author Organization [facility] Address [facility] [place] [address] Care Team Providers Care Rubber Goods Inspector Name Role Phone Jovani Wharton DO Primary Care Provider Reason for Visit * Reason Comments Skin Lesion * Consultation (Routine) - Closed Specialty Diagnoses / Procedures Referred By Devaughn bobo Referred To Contact Dermatology Diagnoses TINEA CORPORIS Jovani Wharton DO [address] [place] [address] [facility] Dermatology [address] [place] [address] Referral ID Status Reason Start Date Expiration Date V isits Requested Visits Authorized [id number] Closed Consult, Test & Treat Connection Center 04/18/2018 04/18/2019 1 1 Encounter Details Date Type Department Care Team (Late st Contact Info) Description 06/18/2018 3:00 PM EST Office Visit Dermatology at [facility] [address] [place] [address] Sharyn Shepherd MD [facility] [address] [place] [address] Candelaria Coleman PA [facility] [address] [place] [address] Nummular eczema Social History Tobacco [...] Elise Coleman) and documented with patient consent. [id number] RTC: PRN Note initiated by Michelle Guy [...] Reviewed and signed by Candelaria Coleman PA-C [facility] Patient seen in conjunction with staff second facing baster: Sharyn Shepherd MD Section of Dermatology [facility] * Sharyn Shepherd MD - 06/18/2018 [...] by: SHARYN SHEPHERD MD Section of Dermatology [facility] documented in this encounter Plan of Treatment Upcoming Encounters Date Type Department Care Team (Latest Contact Info) Description 01/02/2024 7:30 AM EDT Hospital Encounter Gastroenterology at [place] [phone] Lawrence Gar MD [facility] [place] [address] 01/02/2024 7:30 AM EDT - 01/02/2024 8:30 AM EDT Surgery [place] [address] Lawrence Gar MD [facility] [place] [address] EGD, UPPER GI ENDOSCOPY (WRVU 2.09) 11/17/2024 4:20 PM EDT Office [place] [address] Lawrence Gar MD [facility] [place] [address] Scheduled Procedures Name Priority Associated Diagnoses Date/Ti me EGD, UPPER GI ENDOSCOPY (WRVU 2.09) Sharma's esophagus with dysplasia 01/02/2024 7:30 AM EDT documented as of this encounter Visit Diagnoses Diagnosis Nummular eczema Contact dermatitis and other eczema, due to unspecified cause Sharma's esophagus with dysplasia Sharma's esophagus documented in this encounter Care Teams Rubber Goods Inspector Relationship Specialty Start Date End Date Jovani Wharton DO [address] [place] [address] PCP - General Family Medicine 10/18/16 06/18/22 documented as of this encounter
--- OUTSIDE RECORDS SUMMARY | 2023-12-20 02:24 | XMS_ITS | Encounter Summary ---
Author Organization [facility] [place] [address] Care Team Providers Care Support Director Name Role Phone Dio, Jovani MCCAIN Primary Care Provider [phone] Encounter Details Date Type Department Care Team (Latest Contact Info) Description 06/27/2021 1:00 PM EST Laboratory Appointment Lab [address] [place] [phone] CKD (chronic kidney disease) stage 4, GFR [...] 7:30 AM EDT Hospital Encounter [place] [phone] Lawrence Gar MD [facility] [place] [address] 01/02/2024 7:30 AM EDT - 01/02/2024 8:30 AM EDT Surgery [place] [address] Lawrence Gar MD [facility] [place] [address] EGD, UPPER GI ENDOSCOPY (WRVU 2.09) 11/17/2024 4:20 PM EDT Office Visit [place] [address] Lawrence Gar MD [facility] [place] [address] Scheduled Procedures Name Priority Associated Diagnoses Date/Ti [...] 1:21 PM EST) Neutrophils % 67.1 % [facility] Neutr Abs (ANC) 4.41 1.70 - 6.10 x10(3)/[facility] LAB[facility] Lymphocytes % 15.1 % [facility] Lymphocytes Abs 1.0 0.9 - 3.2 x10(3)/[facility] Monocytes % 10.5 % [facility] Monocyte Abs 0.7 0.3 - 0.9 x10(3)/[facility] LAB[facility] Eosinophils % 6.1 % [facility] Eosinophils Abs 0.4 0.0 - 0.4 x10(3)/[facility] Basophils % 0.9 % [facility] Basophils Abs 0.1 0.0 - 0.1 x10(3)/[facility] LABOR[facility]ORY Immature Gran % 0.30 % [facility] Comment: Immature granulocytes(IG's)percentage and absolute count will include metamyelocytes, myelocytes, and promyelocytes. Blood smears from CBCs yielding IG's will be scanned manually for concordance. If this scan disagrees with the automated IG or if promyelocytes are noted, a manual differential will be performed. Raya Gran Abs 0.02 0.00 - 0.04 x10(3)/[facility] LABOR[facility]ORY Blood 06/27/2021 1:21 PM EST 06/27/2021 1:27 PM EST Narrative Resulting Agency Comment Spec In Lab Divine Hernandez HORSESHOER HEMATOLOGY ORDERA BLES Performing Organization Address City/[facility]/ZIP Co de Phone Number [facility] [place] [address] * (ABNORMAL) Hemogram (06/27/2021 1:21 PM EST) WBC 6.6 4.0 - 9.5 x10(3)/[facility] LABORATORY RBC 3.38(L) 4.58 - 5.54 x10(6)/[facility] Hemoglobin 10.6(L) 13.7 - 16.5 g/dL [facility] Hematocrit 31.6(L) 40.5 - 48.5 % [facility] MCV 93.5(H) 82.9 - 93.1 fL [facility] MCH 31.4 27.5 - 32.1 pg [facility] MCHC 33.5 32.0 - 35.7 g/dL [facility] Platelets 254 145 - 357 x10(3)/[facility] LABORATORY RDWSD 47.0(H) 36.0 - 45.0 [facility] RDWCV 13.7 11.4 - 13.8 % [facility] MPV 10.6 7.6 - 12.9 [facility] nRBC % Auto 0.0 % [facility] nRBC Abs Auto 0.000 0.000 - 0.000 x10(3)/[facility] LAB[facility] Blood 06/27/2021 1:21 PM EST 06/27/2021 1:27 PM EST Narrative Resulting Agency Comment Spec In Lab Divine Hernandez HORSESHOER HEMATOLOGY ORDERA BLES Performing Organization Address City/[facility]/ZIP Co de Phone Number [facility] [place] [address] * (ABNORMAL) Basic Metabolic Panel (non-fasting) (06/27/2021 1:21 PM EST) Glucose Lvl 101 65 - 199 mg/dL [facility] Comment:Diabetes: >=200 mg/d L plus symptoms BUN 43(H) 10 - 20 mg/dL [facility] Creatinine 2.62(H) 0.80 - 1.50 mg/dL [facility] Sodium 139 135 - 145 mmol/L [facility] Potassium 4.4 3.5 - 5.0 mmol/L [facility] Comment: Please note: ??Patients with WBC >100,000 may have falsely elevated Potassium levels. ??For accurate Potassium quantification in these patients send serum separator tube (gold top) for subsequent determinations. ??Contact the Clinical Chemistry Laboratory if there are any questions. Chloride 109(H) 98 - 107 mmol/L [facility] CO2 17(L) 22 - 31 mmol/L [facility] Anion Gap 13 5 - 15 mmol/L [facility] Calcium 9.2 8.5 - 10.5 mg/dL [facility] Estimated GFR 24(L) >=60 mL/min/1. 73 m?? [facility] Comment: This patient? s [...] Agency Comment Spec In Lab Divine Hernandez HORSESHOER CHEMISTRY ORDERAB LES [facility] [place] [address] * Albumin Level (06/27/2021 1:21 PM EST) Albumin 4.5 3.2 - 5.2 g/dL [facility] Blood 06/27/2021 1:21 PM EST 06/27/2021 1:28 PM EST Narrative Resulting Agency Comment Spec In Lab Divine L Mary HORSESHOER CHEMISTRY ORDERAB LES Performing Organization Address City/[facility] Co de Phone Number [facility] [place] [address] * Phosphorus (06/27/2021 1:21 PM EST) Phosphorus 3.0 2.5 - 4.5 mg/dL [facility] Blood 06/27/2021 1:21 PM EST 06/27/2021 1:28 PM EST Narrative Resulting Agency Comment Spec In Lab Divine L Mary HORSESHOER CHEMISTRY ORDERAB LES Performing Organization Address City/[facility]/ZIP Co de Phone Number [facility] [place] [address] * (ABNORMAL) PTH (06/27/2021 1:21 PM EST) PTH 98(H) 15 - 65 pg/mL [facility] Blood 06/27/2021 1:21 PM EST 06/27/2021 1:27 PM EST Narrative Resulting Agency Comment Spec In Lab Divine L Mary HORSESHOER CHEMISTRY ORDERAB LES Performing Organization Address [facility] Co de Phone Number [facility] [place] [address] * (ABNORMAL) Protein/Creatinine Ratio, urine (06/27/2021 1:19 PM EST) U Creatinine 147 mg/dL [facility] U Protein Ran 107(H) 0 - 12 mg/dL [facility] Prot/Cre Ratio 0.7 ratio [facility] Urine 06/27/2021 1:19 PM EST 06/27/2021 1:30 PM EST Narrative Resulting Agency Comment Spec In Lab Divine L Mary HORSESHOER URINE ORDERABLES Performing Organization Address City/[facility]/ZIP Co de Phone Number [facility] [place] [address] * (ABNORMAL) Urinalysis without microscopic (06/27/2021 1:19 PM EST) Glucose UA Negative Negative mg/dL [facility] Protein UA 100(A) Negative mg/dL [facility] Bilirubin UA Negative Negative mg/dL [facility] Comment: Clinical correlation required for positive Urine Bilirubin results as false positive may occur with some drugs and drug related products. If a false positive is suspected a serum total bilirubin should be considered if clinically indicated. Urobilinogen UA Normal Normal mg/dL [facility] pH UA 5.5 5.0 - 8.0 [facility] Blood UA Negative Negative mg/dL [facility] Ketones UA Trace(A) Negative mg/dL [facility] Nitrite UA Negative Negative [facility] Leukocytes UA Negative Negative mcL [facility] Appearance UA Clear Clear [facility] Spec Addison UA 1.018 1.005 - 1.030 [facility] Color UA Yellow Yellow [facility] Urine 06/27/2021 1:19 PM EST 06/27/2021 1:30 PM EST Narrative Resulting Agency Comment Spec In Lab Divine L Mary HORSESHOER URINE ORDERABLES Performing Organization Address City/[facility]/ZIP Co de Phone Number [facility] [place] [address] documented in this encounter Visit Diagnoses Diagnosis CKD (chronic kidney disease) stage 4, GFR 15-29 ml/min Chronic kidney disease, Stage IV (severe) Shrama's esophagus with dysplasia Sharma's esophagus documented in this encounter Care Teams Support Director Relationship Specialty Start Date End Date Jovani Wharton DO [address] [place] [address] PCP - General Family Medicine 10/18/16 06/18/22 documented as of this encounter
--- OUTSIDE RECORDS SUMMARY | 2023-12-20 02:24 | XMS_ITS | Encounter Summary ---
Author Organization [facility] Address [facility] [place] [address] Care Team Providers Care Banking Officer Name Role Phone DioJovani franks Primary Care Provider [phone] Encounter Details Date Type Department Care Team (Latest Contact Info) Description 07/04/2020 2:30 PM EST Procedure visit Dermatology at [address] [place] [address] Dominguez Lopez MD [facility] [place] [address] Squamous cell carcinoma of skin of ear, [...] Patient Instructions * Patient Instructions* Mi Banda, EXECUTIVE ASSISTANT TO GENERAL COUNSEL - 07/04/2020 2:30 PM EST Your staff surgeon today was Dominguez Lopez MD,PhD. Your wound(s) was repaired by [id number] stitches called a primary repair. You do [...] pounds for 5-7 days postoperatively. 5. Some telegraphic service dispatcher may need to be delayed or delegated [...] as often as is recommended by your laborer laboratory, for new skin cancers. This is once [...] it. If after hours, please call the black mill operator or [phone] and ask for the laborer laboratory on-call. If you have any non-urgent questions or concerns, please feel free to call my office or contact me through our patient portal, [employer], at [email or web address] How to contact us during business hours Dermatology at [facility] [address]: Mohs scheduling or Mohs follow-up appointments: [phone] documented in this encounter Progress Notes * [...] 7:30 AM EDT Hospital En[place] [address] Lawrence Gar MD [facility] [place] [address] 01/02/2024 7:30 AM EDT - 01/02/2024 8:30 AM EDT [place] [address] Lawrence Gar MD [facility] [place] [address] EGD, UPPER GI ENDOSCOPY (WRVU 2.09) 11/17/2024 4:20 PM EDT Office [place] [address] Lawrence Gar MD [facility] [place] [address] Scheduled Procedures Name Priority Associated Diagnoses Date/Ti me EGD, UPPER GI ENDOSCOPY (WRVU 2.09) Sharma's esophagus with dysplasia 01/02/2024 7:30 AM EDT documented as of this encounter Visit Diagnoses Diagnosis Squamous cell carcinoma of skin of ear, unspecified laterality Sharma's esophagus with dysplasia Sharma's esophagus documented in this encounter Care Teams Banking Officer Relationship Specialty Start Date End Date Jovani Wharton DO [address] [place] [address] PCP - General Family Medicine 10/18/16 06/18/22 documented as of this encounter
--- OUTSIDE RECORDS SUMMARY | 2023-12-20 02:24 | XMS_ITS | Encounter Summary ---
Author Organization [facility] Address [facility] [place] [address] Care Team Providers Care Manufacturing Controls Engineer Name Role Phone DioJovani franks Primary Care Provider [phone] Encounter Details Date Type Department Care Team (Late st Contact Info) Description 01/21/2020 Orders Only Neph[place] [address] Jorge Gonzales MD [facility] [place] [address] CKD (chronic kidney disease) stage 2, GFR [...] 7:30 AM EDT Hospital Encounter [place] [address] Lawrence Gar MD [facility] [place] [address] 01/02/2024 7:30 AM EDT - 01/02/2024 8:30 AM EDT [place] [address] Lawrence Gar MD [facility] DR [place] [address] EGD, UPPER GI ENDOSCOPY (WRVU 2.09) 11/17/2024 4:20 PM EDT Office [place] [address] Lawrence Gar MD [facility] DR [place] [address] Scheduled Procedures Name Priority Associated Diagnoses Date/Ti me EGD, UPPER GI ENDOSCOPY (WRVU 2.09) Sharma's esophagus with dysplasia 01/02/2024 7:30 AM EDT documented as of this encounter Results * PTH (04/20/2020 5:20 PM EST) [facility] PTH 51 15 - 65 pg/mL [facility] Blood specimen (specimen) 04/20/2020 5:20 PM EST 04/20/2020 5:27 PM EST Narrative Resulting Agency Comment Spec In Lab Jorge Gonzales MD CHEMISTRY ORDERABLE S [facility] [place] [address] * (ABNORMAL) Basic Metabolic Panel (non-fasting) (04/20/2020 5:20 PM EST) [facility] Glucose Lvl 117 65 - 199 mg/dL [facility] Comment:Diabetes: >=200 mg/d L plus symptoms BUN 56(H) 10 - 20 mg/dL [facility] Creatinine 2.71(H) 0.80 - 1.50 mg/dL [facility] Sodium 140 135 - 145 mmol/L [facility] Potassium 4.5 3.5 - 5.0 mmol/L [facility] Comment: Please note: ??Patients with WBC >100,000 may have falsely elevated Potassium levels. ??For accurate Potassium quantification in these patients send serum separator tube (gold top) for subsequent determinations. ??Contact the Clinical Chemistry Laboratory if there are any questions. Chloride 107 98 - 107 mmol/L [facility] CO2 21(L) 22 - 31 mmol/L [facility] Anion Gap 12 5 - 15 mmol/L [facility] Calcium 9.7 8.5 - 10.5 mg/dL [facility] Estimated GFR 23(L) >=60 mL/min/1. 73 m?? [facility] Comment: The eGFR was calculated using the CKD-EPI equation. As with all creatinine based estimates of kidney function, eGFR values calculated with the CKD-EPI equation are not accurate in patients with acute kidney failure, extremes of body mass or the acutely ill. http://[employer]/[email or web address] PAWHUSKAnkf eGFR 27(L) >=60 mL/min/1. 73 m?? [facility] Comment: The eGFR was calculated using the CKD-EPI equation. As with all creatinine based estimates of kidney function, eGFR values calculated with the CKD-EPI equation are not accurate in patients with acute kidney failure, extremes of body mass or the acutely ill. http://[employer]/DHMCnkf Blood specimen (specimen) 04/20/2020 5:20 PM EST 04/20/2020 5:27 PM EST Narrative Resulting Agency Comment Spec In Lab Jorge Gonzales MD CHEMISTRY ORDERABLE S [facility] [place] [address] * (ABNORMAL) Protein/Creatinine Ratio, urine (04/20/2020 4:30 PM EST) U Creatinine 128 mg/dL [facility] U Protein Ran 110(H) 0 - 12 mg/dL [facility] Prot/Cre Ratio 0.9 ratio [facility] Urine specimen (specimen) 04/20/2020 4:30 PM EST 04/20/2020 5:12 PM EST Narrative Resulting Agency Comment Spec In Lab Jorge Gonzales MD URINE ORDERABLES [facility] [place] [address] documented in this encounter Visit Diagnoses Diagnosis CKD (chronic kidney disease) stage 2, GFR 60-89 ml/min Chronic kidney disease, Stage II (mild) Sharma's esophagus with dysplasia Sharma's esophagus documented in this encounter Care Teams Manufacturing Controls Engineer Relationship Specialty Start Date End Date Jovani Wharton DO [address] [place] [address] PCP - General Family Medicine 10/18/16 06/18/22 documented as of this encounter
--- OUTSIDE RECORDS SUMMARY | 2023-12-20 02:24 | XMS_ITS | Encounter Summary ---
Author Organization [facility] [place] [address] Care Team Providers Care Industrial Furnace Fabricator Name Role Phone Dio Jovani MCCAIN Primary Care Provider [phone] Encounter Details Date Type Department Care Team (Latest Contact Info) Description 06/27/2021 2:00 PM EST Office Visit [place] [address] Mekhi Hernandez [facility] [place] [address] CKD (chronic kidney disease) stage 4, GFR [...] this encounter Progress Notes * Mekhi Hernandez, TECHNICAL ADMINISTRATOR - 06/27/2021 2:00 PM EST Nephrology/Hypertension Clinic Follow-up Note [id number] ID: 66 y.o.year-old male for follow up [...] the work day. 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 Uses NSAIDs very [...] Negative mcL Appearance UA Clear Clear Spec Stanton UA 1.018 1.005 - 1.030 Color UA [...] worsening renal function discussed. No clinicalindication for TOOL PROGRAMMER at this time. Will check Vit D and recheck BMP in 1 month at his local lab. HTN - BP well controlled on current medications. >the total time spent udru-vw-wvdz AND total time the provider spent counseling [...] 7:30 AM EDT Hospital [place] [address] Lawrence Gar MD [facility] [place] [address] 01/02/2024 7:30 AM EDT - 01/02/2024 8:30 AM EDT [place] [address] Lawrence Gar MD [facility] [place] [address] EGD, UPPER GI ENDOSCOPY (WRVU 2.09) 11/17/2024 4:20 PM EDT Office [place] [address] Lawrence Gar MD [facility] [place] [address] Scheduled Procedures Name Priority Associated Diagnoses Date/Ti me EGD, UPPER GI ENDOSCOPY (WRVU 2.09) Sharma's esophagus with dysplasia 01/02/2024 7:30 AM EDT documented as of this encounter Results * (ABNORMAL) PTH (06/27/2021 1:21 PM EST) PTH 98(H) 15 - 65 pg/mL [facility] Blood 06/27/2021 1:21 PM EST 06/27/2021 1:27 PM EST Narrative Resulting Agency Comment Spec In Lab Mekhi Hernandez APRN CHEMISTRY ORDERAB LES [facility] [place] [address] * Phosphorus (06/27/2021 1:21 PM EST) Phosphorus 3.0 2.5 - 4.5 mg/dL [facility] Blood 06/27/2021 1:21 PM EST 06/27/2021 1:28 PM EST Narrative Resulting Agency Comment Spec In Lab Mekhi Hernandez TECHNICAL ADMINISTRATOR CHEMISTRY ORDERAB LES Performing Organization Address City/[facility]/ZIP Co de Phone Number [facility] [place] [address] * Albumin Level (06/27/2021 1:21 PM EST) Albumin 4.5 3.2 - 5.2 g/dL [facility] Blood 06/27/2021 1:21 PM EST 06/27/2021 1:28 PM EST Narrative Resulting Agency Comment Spec In Lab Mekhinito Hernandez TECHNICAL ADMINISTRATOR CHEMISTRY ORDERAB LES Performing Organization Address [facility] Co de Phone Number [facility] [place] [address] * (ABNORMAL) Basic Metabolic Panel (non-fasting) (06/27/2021 1:21 PM EST) Glucose Lvl 101 65 - 199 mg/dL [facility] Comment:Diabetes: >=200 mg/d L plus symptoms BUN 43(H) 10 - 20 mg/dL [facility] Creatinine 2.62(H) 0.80 - 1.50 mg/dL [facility] Sodium 139 135 - 145 mmol/L [facility] Potassium 4.4 3.5 - 5.0 mmol/L [facility] Comment: Please note: ??Patients with WBC >100,000 may have falsely elevated Potassium levels. ??For accurate Potassium quantification in these patients send serum separator tube (gold top) for subsequent determinations. ??Contact the Clinical Chemistry Laboratory if there are any questions. Chloride 109(H) 98 - 107 mmol/L [facility] CO2 17(L) 22 - 31 mmol/L [facility] Anion Gap 13 5 - 15 mmol/L [facility] Calcium 9.2 8.5 - 10.5 mg/dL [facility] Estimated GFR 24(L) >=60 mL/min/1. 73 m?? [facility] Comment: This patient? [...] Agency Comment Spec In Lab Mekhi Hernandez TECHNICAL ADMINISTRATOR CHEMISTRY ORDERAB LES [facility] [place] [address] * (ABNORMAL) Urinalysis without microscopic (06/27/2021 1:19 PM EST) Glucose UA Negative Negative mg/dL [facility] Protein UA 100(A) Negative mg/dL [facility] Bilirubin UA Negative Negative mg/dL [facility] Comment: Clinical correlation required for positive Urine Bilirubin results as false positive may occur with some drugs and drug related products. If a false positive is suspected a serum total bilirubin should be considered if clinically indicated. Urobilinogen UA Normal Normal mg/dL [facility] pH UA 5.5 5.0 - 8.0 [facility] Blood UA Negative Negative mg/dL [facility] Ketones UA Trace(A) Negative mg/dL [facility] Nitrite UA Negative Negative [facility] Leukocytes UA Negative Negative mcL [facility] Appearance UA Clear Clear [facility] Spec Stanton UA 1.018 1.005 - 1.030 [facility] Color UA Yellow Yellow [facility] Urine 06/27/2021 1:19 PM EST 06/27/2021 1:30 PM EST Narrative Resulting Agency Comment Spec In Lab Mekhi Hernandez KAVITA URINE ORDERABLES Performing Organization Address City/[facility] Co de Phone Number [facility] [place] [address] * (ABNORMAL) Protein/Creatinine Ratio, urine (06/27/2021 1:19 PM EST) U Creatinine 147 mg/dL [facility] U Protein Ran 107(H) 0 - 12 mg/dL [facility] Prot/Cre Ratio 0.7 ratio [facility] Urine 06/27/2021 1:19 PM EST 06/27/2021 1:30 PM EST Narrative Resulting Agency Comment Spec In Lab Mekhi Hernandez KAVITA URINE ORDERABLES Performing Organization Address City/[facility]/ZIP Co de Phone Number [facility] [place] [address] documented in this encounter Visit Diagnoses Diagnosis CKD (chronic kidney disease) stage 4, GFR 15-29 ml/min Chronic kidney disease, Stage IV (severe) Hypertension, unspecified type Sharma's esophagus with dysplasia Sharma's esophagus documented in this encounter Care Teams Industrial Furnace Fabricator Relationship Specialty Start Date End Date Jovani Wharton DO [address] [place] [address] PCP - General Family Medicine 5/25/17 1/23/23 documented as of this encounter
--- OUTSIDE RECORDS SUMMARY | 2023-12-20 02:24 | XMS_ITS | Encounter Summary ---
[place] [address] Care Team Providers Care Dumper Bulk System Name Role Phone DioJovani franks Primary Care Provider Encounter Details Date Type Department Care Team (Late st Contact Info) Description 04/14/2021 Telephone [place] [address] Christiana Haq Social History Tobacco [...] but we can schedule him with our [facility]. documented in this encounter Plan of Treatment Upcoming Encounters Date Type Department Care Team (Latest Contact Info) Description 01/02/2024 7:30 AM EDT Hospital En[place] [address] Lawrence Gar MD [facility] DR [place] [address] 01/02/2024 7:30 AM EDT - 01/02/2024 8:30 AM EDT [place] [address] Lawrence Gar MD [facility] DR [place] [address] EGD, UPPER GI ENDOSCOPY (WRVU 2.09) 11/17/2024 4:20 PM EDT Office [place] [address] Lawrence Gar MD [facility] DR [place] [address] Scheduled Procedures Name Priority Associated Diagnoses Date/Ti me EGD, UPPER GI ENDOSCOPY (WRVU 2.09) Sharma's esophagus with dysplasia 01/02/2024 7:30 AM EDT documented as of this encounter Visit Diagnoses Not on filedocumented in this encounter Care Teams Dumper Bulk System Relationship Specialty Start Date End Date Jovani hWarton DO [address] [place] [address] PCP - General Family Medicine 10/18/16 06/18/22 documented as of this encounter
--- OUTSIDE RECORDS SUMMARY | 2023-12-20 02:24 | XMS_ITS | Encounter Summary ---
Author Organization [facility] [place] [address] Care Team Providers Care Brine Well Operator Name Role Phone DioJovani franks Primary Care Provider Encounter Details Date Type Department Care Team (Late st Contact Info) Description 04/07/2021 [facility] Only [address] [address] Jorge Chauhan MD [address] [place] [address] Social History Tobacco Use Types Packs/Day Years [...] 7:30 AM EDT Hospital Encounter [place] [address] Lawrence Gar MD [facility] [place] [address] 01/02/2024 7:30 AM EDT - 01/02/2024 8:30 AM EDT Surgery [place] [address] Lawrence Gar MD [facility] [place] [address] EGD, UPPER GI ENDOSCOPY (WRVU 2.09) 11/17/2024 4:20 PM EDT Office Visit [place] [address] Lawrence Gar MD [facility] [place] [address] Scheduled Procedures Name Priority Associated Diagnoses Date/Ti [...] PT CLASS O RAD ADMITDTTM RAD PT [facility] INFO [id number]^J ENSEN^KRISTO PHER RAD EXAM DESC UEXTDUP^US LEG [...] who have questions please contact the health family day carer that requested your imaging first. ? Electronically signed by: Miguel Vasquez MD, [facility] ([phone]), at 04/07/2021 1:37 PM Narrative 04/07/2021 1:37 PM EST EXAMINATION: US [...] patients who have questions please contactthe health family day carer that requested your imaging first. Electronically signed by: Miguel Vasquez MD, [facility]([phone]), at 04/07/2021 1:37 PM Jorge Chauhan MD [facility] documented in this encounter Visit Diagnoses Not on filedocumented in this encounter Care Teams Brine Well Operator Relationship Specialty Start Date End Date Jovani Wharton DO [address] [place] [address] PCP - General Family Medicine 10/18/16 06/18/22 documented as of this encounter
--- OUTSIDE RECORDS SUMMARY | 2023-12-20 02:24 | XMS_ITS | Encounter Summary ---
Author Organization [facility] Address [facility] [place] [address] Care Team Providers Care Creative Resource Manager Name Role Phone DioJovani franks Primary Care Provider [phone] Encounter Details Date Type Department Care Team (Late st Contact Info) Description 04/25/2020 10:30 AM EST Office Visit Dermatology at [facility] [address] [place] [address] Deb Hamlin MD [facility] [place] [address] Xerosis of skin; Neoplasm of uncertain behavior [...] a 65 y.o. male Last seen in [facility] Dermatology: 01/14/2020 Here for evaluation of [...] and signed by: Deb Hamlin MD Dermatology [facility] * Deb Hamlin MD - 04/25/2020 [...] 7:30 AM EDT Hospital Encounter [place] [address] Lawrence Gar MD [facility] [place] [address] 01/02/2024 7:30 AM EDT - 01/02/2024 8:30 AM EDT Surgery [place] [address] Lawrence Gar MD [facility] [place] [address] EGD, UPPER GI ENDOSCOPY (WRVU 2.09) 11/17/2024 4:20 PM EDT Office [place] [address] Lawrence Gar MD [facility] [place] [address] Scheduled Procedures Name Priority Associated Diagnoses Date/Ti [...] AM EST 04/25/2020 3:29 PM EST Narrative [facility] - 04/25/2020 3:29 PM EST Specimen requisition ordered. ??Separate Pathology report to follow Resulting Agency Comment Spec In Lab Deb Hamlin MD PATHOLOGY/CYTOLOGY O JIMERAXIN [facility] [place] [address] * Surgical Pathology Report (04/25/2020 11:32 AM EST) FINAL DIAGNOSIS (AP) [id number] ? Location: [facility] The signing pathologist has (i) examined the relevant preparation(s) for the specimen(s) and (ii) rendered or confirmed the diagnosis(es). . 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 of Pathology, [place], [place] SPECIMEN(S) SUBMITTED A - right mid [...] submitted in 2 cassettes labeled A1-A2. ??pps 04/27/2020 2:41 PM EST [facility] 04/25/2020 11:3 2 AM EST Deb Hamlin MD PATHOLOGY/CYTOLOGY O RDERABLES [facility] [place] [place] [address] documented in this encounter Visit Diagnoses Diagnosis Xerosis of skin Other specified disease of sebaceous glands Neoplasm of uncertain behavior Neoplasm of uncertain behavior, site unspecified Sharma's esophagus with dysplasia Sharma's esophagus documented in this encounter Care Teams Creative Resource Manager Relationship Specialty Start Date End Date Jovani Wharton DO [address] [place] [address] PCP - General Family Medicine 10/18/16 06/18/22 documented as of this encounter
--- OUTSIDE RECORDS SUMMARY | 2023-12-20 02:24 | XMS_ITS | Encounter Summary ---
Author Organization [facility] [place] [address] Care Team Providers Care Batching Operator Name Role Phone DioJovani franks Primary Care Provider Encounter Details Date Type Department Care Team (Late st Contact Info) Description 10/20/2020 1:03 PM EDT Anesthesia [place] [address] Guilherme Anderson MD [facility] [place] [address] Anesthesia Record Procedure Summary Procedure Name Responsible [...] 1245; median cubital vein (antecubital fossa), right; [id number] catheter system; 22 gauge; soy garcia rn; [...] Procedure Summary Date: 10/20/20 Room / Location: [facility] 2 / [facility] Anesthesia Start: 1303 Anesthesia Stop: 1426 Procedures: EGD WITH BIOPSY (WRVU 2.49) (N/A Trunk) UPPER EUS- ENDOSCOPIC ULTRASOUND (N/A Trunk) COLONOSCOPY, POLYPECTOMY, REMOVAL LESION BY SNARE (WRVU 4.67) (N/A Trunk) Diagnosis: Alcohol-induced chronic pancreatitis Screen for colon cancer Gastroesophageal reflux disease, unspecified whether esophagitis present (Pancreatitis, GERD and colon cancer screening) Surgeons: Lawrence Gar MD Responsible Provider: Guilherme Anderson MD Anesthesia Type: MAC ASA Status: 3 All Anesthesia Providers: Anesthesiologist: Guilherme Anderson MD PUBLIC POLICY ASSOCIATE: Obey Amezquita CRNA Vitals Value Taken Time BP 145/90 10/20/20 1510 Temp Pulse 72 10/20/20 1440 Resp 16 10/20/20 1440 SpO2 100 % 10/20/20 1517 Pain Level 0 10/20/20 1440 Vitals shown include unvalidated device data. Patient Location: PACU/[facility] Level of Consciousness: Conscious but Sleepy Pain [...] pancreatitis Added automatically from request for surgery [id number] ??? Screen for colon cancer Added automatically from request for surgery [id number] ??? Gastroesophageal reflux disease Added automatically from request for surgery [id number] No past medical history on file. No [...] risks discussed with patient. Plan discussed with PUBLIC POLICY ASSOCIATE. Anesthesia Screening documented in this encounter Plan of Treatment Upcoming Encounters Date Type Department Care Team (Latest Contact Info) Description 01/02/2024 7:30 AM EDT Hospital Encounter [place] [address] Lawrence Gar MD [facility] [place] [address] 01/02/2024 7:30 AM EDT - 01/02/2024 8:30 AM EDT Surgery [place] [address] Lawrence Gar MD [facility] [place] [address] EGD, UPPER GI ENDOSCOPY (WRVU 2.09) 11/17/2024 4:20 PM EDT Office [place] [address] Lawrence Gar MD [facility] [place] [address] Scheduled Procedures Name Priority Associated Diagnoses Date/Ti nc EGD, UPPER GI ENDOSCOPY (WRVU 2.09) Sharma's [...] hr documented in this encounter Care Teams Batching Operator Relationship Specialty Start Date End Date Jovani Wharton DO [address] [place] [address] [address] [place] [address] PCP - General Family Medicine 10/18/16 06/18/22 documented as of this encounter
--- OUTSIDE RECORDS SUMMARY | 2023-12-20 02:24 | XMS_ITS | Encounter Summary ---
Author Organization [facility] Address [facility] [place] [address] Care Team Providers Care Staff Air Tactical Officer Name Role Phone DioJovani franks Primary Care Provider [phone] Encounter Details Date Type Department Care Team (Latest Contact Info) Description 06/14/2020 10:45 AM EST Clinical Support Dermatology at [facility] [address] [place] [address] 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 [place] [address] 01/02/2024 7:30 AM EDT - 01/02/2024 8:30 AM EDT [place] [address] [facility] [place] [address] EGD, UPPER GI ENDOSCOPY (WRVU 2.09) 11/17/2024 4:20 PM EDT Office [place] [address] [facility] 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
--- OUTSIDE RECORDS SUMMARY | 2023-12-20 02:24 | XMS_ITS | Encounter Summary ---
[place] [address] Care Team Providers Care Motorcycle Mechanic Apprentice Name Role Phone Jovani Wharton DO Primary Care Provider Encounter Details Date Type Department Care Team (Late st Contact Info) Description 09/22/2020 Telephone [place] [address] Lorenza Solis Social History Tobacco Use Types Packs/Day Years Used Date Smoking Tobacco: Never Smokeless Tobacco: Never Sex and Gender Information Value Date Recorded Sex Assigned at Not on file Gender Identity Not on file Sexual Orientation Not on file documented as of this encounter Miscellaneous Notes * Telephone Encounter - Lorenza Solis - 09/22/2020 11:46 AM EDT Mathew Mendez [id number] Diagnosis/Indication: pancreatitis/crc 1. Have you ever had a/an Upper Endoscopy & Colonoscopy before? Yes: Date egd [place] 2 yrs ago, colo more than 10 [...] 7:30 AM EDT Hospital Encounter [place] [address] Lawrence Gar MD [facility] [place] [address] 01/02/2024 7:30 AM EDT - 01/02/2024 8:30 AM EDT Surgery [place] [address] Lawrence Gar MD [facility] [place] [address] EGD, UPPER GI ENDOSCOPY (WRVU 2.09) 11/17/2024 4:20 PM EDT Office [place] [address] Lawrence Gar MD [facility] [place] [address] Scheduled Procedures Name Priority Associated Diagnoses Date/Ti me EGD, UPPER GI ENDOSCOPY (WRVU 2.09) Sharma's esophagus with dysplasia 01/02/2024 7:30 AM EDT documented as of this encounter Visit Diagnoses Not on filedocumented in this encounter Care Teams Motorcycle Mechanic Apprentice Relationship Specialty Start Date End Date Jovani Wharton DO [address] [place] [address] PCP - General Family Medicine 10/18/16 06/18/22 documented as of this encounter
--- OUTSIDE RECORDS SUMMARY | 2023-12-20 02:24 | XMS_ITS | Encounter Summary ---
Author Organization [facility] Address [facility] [place] [address] Care Team Providers Care Sander Wooden Pencils Name Role Phone Jovani Wharton DO Primary Care Provider Reason for Visit * Consultation (Routine) - Closed Specialty Diagnoses / Procedures Referred By Devaughn bobo Referred To Contact Gastroenterology Diagnoses Acute pancreatitis without necrosis or infection, unspecified Pancreatitis Procedures Consult Jovani Wharton DO [address] [place] [address] [facility] [address] [place] [address] Referral ID Status Reason Start Date Expiration Date Visits Re quested Visits Authorized [id number] Closed 07/22/2020 07/22/2021 1 1 Encounter Details Date Type Department Care Team (Latest Contact Info) Description 08/09/2020 3:20 PM EDT TH Visit (TeleHealth) [place] [address] Lawrence Gar MD [facility] [place] [address] Gastroesophageal reflux disease, unspecified whether [...] partial colectomy many years ago here at [facility] for diverticulitis. He has not had a colonoscopy for several years. As stated above he currently feels better with improvement in his abdominal pain and bloating over the last few weeks but he is concerned about the possibility that his symptoms will recur. Current Outpatient Medications on File Prior to Visit Medication Sig Dispense Refill ??? pffcuj-gttkwtab-hubydve (Creon 6) 6,000-19,000 -30,000 unit Capsule, Delayed [...] Noncontributory. 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 He is a non-smoker. Alcohol use in [...] of care regarding pancreatitis. Lawrence Gar MD edi coordinator Director, GI Endoscopy Section of G[place]enter[place] [address] Cc:Jovani Wharton DO documented in this encounter Plan of Treatment Upcoming Encounters Date Type Department Care Team (Latest Contact Info) Description 01/02/2024 7:30 AM EDT Hospital Encounter [place] [address] Lawrence Gar MD [facility] [place] [address] 01/02/2024 7:30 AM EDT - 01/02/2024 8:30 AM EDT Surgery [place] [address] Lawrence Gar MD [facility] [place] [address] EGD, UPPER GI ENDOSCOPY (WRVU 2.09) 11/17/2024 4:20 PM EDT Office [place] [address] Lawrence Gar MD [facility] [place] [address] Scheduled Orders Name Type Priority Associated Diagnoses [...] esophagus documented in this encounter Care Teams Sander Wooden Pencils Relationship Specialty Start Date End Date Jovani Wharton DO [address] [place] [address] PCP - General Family Medicine 10/18/16 06/18/22 documented as of this encounter
--- OUTSIDE RECORDS SUMMARY | 2023-12-20 02:24 | XMS_ITS | Encounter Summary ---
Author Organization [facility] Address [facility] [place] [address] Care Team Providers Care Tire Service Technician Name Role Phone DioJovani franks Primary Care Provider [phone] Reason for Visit * Reason Comments Squamous Cell Carcinoma Encounter Details Date Type Department Care Team (Latest Contact Info) Description 07/06/2019 8:00 AM EST Procedure visit Dermatology at [address] [address] Dominguez Lopez MD [facility] [place] [address] Squamous cell carcinoma of skin of left [...] MD, PhD. Your wound(s) was repaired by tcng-qp-rhex stitches called a primary repair. You do [...] until your sutures are removed. 5. Some expanded function dental assistant may need to be delayed or delegated [...] as often as is recommended by your front end java developer, for new skin cancers. This is once [...] it. If after hours, please call the grain elevator operator or [phone] and ask for the front end java developer on-call. If you have any non-urgent questions or concerns, please feel free to call my office or contact me through our patient portal, [employer], at [email or web address] How to contact us during business hours Dermatology at [address]: Mohs scheduling or Mohs follow-up appointments: [phone] documented in this encounter Progress Notes * [...] and follow up with his or her front end java developer or other skin provider. 6. Discussed avoiding [...] Reviewed and signed by: Dominguez Lopez Dermatology [facility] * Dominguez Lopez MD - 07/06/2019 8:00 AM EST Mohs micrographic Surgery Operative Report Patient name: Mathew Mendez : 1955 Date: 07/06/2019 Staff Surgeon: Dominguez Lopez MD PhD Nursing/Moving Picture Operator(s): Mi Banda CMA, Patsy Chapman RN, Mary Naidu LPN, Serina Taylor CMA Physiotherapist'S Assistant (s): Donna Mays Pre-operative diagnosis: Squamous Cell [...] The site was confirmed with the patient/authorized printing supplies sales representative/referring physician and/or a photograph form [...] micrographic extirpation of tumor Indication: Repair with mu-ism of anatomic structure and function Procedure Name: [...] Reviewed and signed by: Dominguez Lopez Dermatology [facility] documented in this encounter Plan of Treatment Upcoming Encounters Date Type Department Care Team (Latest Contact Info) Description 01/02/2024 7:30 AM EDT Hospital Encounter [place] [address] Lawrence Gar MD [facility] [place] [address] 01/02/2024 7:30 AM EDT - 01/02/2024 8:30 AM EDT Surgery [place] [address] Lawrence Gar MD [facility] [place] [address] EGD, UPPER GI ENDOSCOPY (WRVU 2.09) 11/17/2024 4:20 PM EDT Office [place] [address] Lawrence Gar MD [facility] [place] [address] Scheduled Procedures Name Priority Associated Diagnoses Date/Ti me EGD, UPPER GI ENDOSCOPY (WRVU 2.09) Sharma's esophagus with dysplasia 01/02/2024 7:30 AM EDT documented as of this encounter Visit Diagnoses Diagnosis Squamous cell carcinoma of skin of left earlobe Sharma's esophagus with dysplasia Sharma's esophagus documented in this encounter Care Teams Tire Service Technician Relationship Specialty Start Date End Date Jovani Wharton DO [facility] [address] [place] [address] PCP - General Family Medicine 10/18/16 06/18/22 documented as of this encounter
--- OUTSIDE RECORDS SUMMARY | 2023-12-20 02:24 | XMS_ITS | Encounter Summary ---
[place] [address] Care Team Providers Care Regional Manager Name Role Phone DioJovani franks Primary Care Provider Reason for Visit * Reason Onset Date Comments Pre Procedure Call 06/29/2019 Encounter Details Date Type Department Care Team (Late st Contact Info) Description 06/29/2019 Telephone Dermatology at [address] [address] Milvia Mancilla, RN Pre Procedure [...] 7:30 AM EDT Hospital [place] [address] Lawrence Gar MD [facility] [place] [address] 01/02/2024 7:30 AM EDT - 01/02/2024 8:30 AM EDT [place] [address] Lawrence Gar MD [facility] [place] [address] EGD, UPPER GI ENDOSCOPY (WRVU 2.09) 11/17/2024 4:20 PM EDT Office [place] [address] Lawrence Gar MD [facility] [place] [address] Scheduled Procedures Name Priority Associated Diagnoses Date/Ti me EGD, UPPER GI ENDOSCOPY (WRVU 2.09) Sharma's esophagus with dysplasia 01/02/2024 7:30 AM EDT documented as of this encounter Visit Diagnoses Not on filedocumented in this encounter Care Teams Regional Manager Relationship Specialty Start Date End Date Jovani Wharton DO [address] [place] [address] [address] [place] [address] PCP - General Family Medicine 10/18/16 06/18/22 documented as of this encounter
--- OUTSIDE RECORDS SUMMARY | 2023-12-20 02:24 | XMS_ITS | Encounter Summary ---
[place] [address] Care Team Providers Care Biodiesel Operations Manager Name Role Phone DioJovani franks Primary Care Provider Reason for Visit * Reason Onset Date Comments Reminder Appointment 08/09/2020 Encounter Details Date Type Department Care Team (Late st Contact Info) Description 08/09/2020 Telephone [place] [address] Whitney Reyes CCMA Reminder Appointment [...] 7:30 AM EDT Hospital Encounter [place] [phone] Lawrence Gar MD [facility] [place] [address] 01/02/2024 7:30 AM EDT - 01/02/2024 8:30 AM EDT [place] [address] Lawrence Gar MD [facility] DR [place] [address] EGD, UPPER GI ENDOSCOPY (WRVU 2.09) 11/17/2024 4:20 PM EDT Office [place] [address] Lawrence Gar MD [facility] [place] [address] Scheduled Procedures Name Priority Associated Diagnoses Date/Ti me EGD, UPPER GI ENDOSCOPY (WRVU 2.09) Sharma's esophagus with dysplasia 01/02/2024 7:30 AM EDT documented as of this encounter Visit Diagnoses Not on filedocumented in this encounter Care Teams Biodiesel Operations Manager Relationship Specialty Start Date End Date Jovani Wharton DO [address] [place] [address] PCP - General Family Medicine 10/18/16 06/18/22 documented as of this encounter
--- OUTSIDE RECORDS SUMMARY | 2023-12-20 02:24 | XMS_ITS | Encounter Summary ---
Author Organization [facility] Address [facility] [address] Care Team Providers Care Transport Manager Name Role Phone DioJovani franks Primary Care Provider Reason for Referral * Consultation (Routine) - Closed Specialty Diagnoses / Procedures Referred By Devaughn bobo Referred To Contact Dermatology Diagnoses SCC (squamous cell carcinoma) Deb Hamlin MD [facility] [address] TOM FERNAN[place] [address] Dominguez Lopez MD [facility] [address] TOM FERNA[place] [address] Referral ID Status Reason Start Date Expiration Date V isits Requested Visits Authorized [id number] Closed Consult, Test & Treat 04/29/2020 04/29/2021 1 1 Encounter Details Date Type Department Care Team (Late st Contact Info) Description 04/29/2020 Orders Only Dermatology at [facility] [address] [place] [address] Deb Hamlin MD [facility] [address] TOM FERNA[place] [address] SCC (squamous cell carcinoma) Social History Tobacco [...] 7:30 AM EDT Hospital Encounter [place] [address] Lawrence Gar MD [facility] [address] GASTROENTER[place] [address] 01/02/2024 7:30 AM EDT - 01/02/2024 8:30 AM EDT Surgery [place] [address] Lawrence Gar MD [facility] [address] GASTROENTER[place] [address] EGD, UPPER GI ENDOSCOPY (WRVU 2.09) 11/17/2024 4:20 PM EDT Office Visit [place] [address] Lawrence Gar MD [facility] [address] [place]STRO[place] [address] Scheduled Procedures Name Priority Associated Diagnoses Date/Ti sd EGD, UPPER GI ENDOSCOPY (WRVU 2.09) Sharma's [...] esophagus documented in this encounter Care Teams Transport Manager Relationship Specialty Start Date End Date Jovani Wharton DO [address] [place] [address] PCP - General Family Medicine 5/25/17 1/23/23 documented as of this encounter
--- OUTSIDE RECORDS SUMMARY | 2023-12-20 02:24 | XMS_ITS | Encounter Summary ---
Author Organization [facility] Address [facility] [place] [address] Care Team Providers Care Bias Cutting Machine Operator Vertical Name Role Phone Jovani Wharton DO Primary Care Provider [phone] Encounter Details Date Type Department Care Team (Late st Contact Info) Description 01/17/2021 2:20 PM EDT Office Visit [place] [address] Lawrence Gar MD [facility] 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 xarzin-xauqjxhk-ciryjca DR (Creon 6) 6,000-19,000 -30,000 unit Capsule, [...] of care regarding pancreatitis. Lawrence Gar MD ophthalmic assistant Director, GI Endoscopy Section of Gastroenterology [place] [address] Cc:Jovani KeenickDO [address] [place] [address] documented in this encounter Plan of Treatment Upcoming Encounters Date Type Department Care Team (Latest Contact Info) Description 01/02/2024 7:30 AM EDT Hospital Encounter Gastroenterology at [place] [phone] Lawrence Gar MD [facility] [place] [address] 01/02/2024 7:30 AM EDT - 01/02/2024 8:30 AM EDT Surgery [place] [address] Lawrence Gar MD [facility] [place] [address] EGD, UPPER GI ENDOSCOPY (WRVU 2.09) 11/17/2024 4:20 PM EDT Office Visit Gastroenterology at [place] [phone] Lawrence Gar MD [facility] [place] [address] Scheduled Procedures Name Priority Associated Diagnoses Date/Ti ut EGD, UPPER GI ENDOSCOPY (WRVU 2.09) Sharma's esophagus with dysplasia 01/02/2024 7:30 AM EDT documented as of this encounter Visit Diagnoses Diagnosis Alcohol-induced chronic pancreatitis Chronic pancreatitis Sharma's esophagus with dysplasia Sharma's esophagus documented in this encounter Care Teams Bias Cutting Machine Operator Vertical Relationship Specialty Start Date End Date DioJovani franks [address] [place] [address] PCP - General Family Medicine 10/18/16 06/18/22 documented as of this encounter
--- OUTSIDE RECORDS SUMMARY | 2023-12-20 02:24 | XMS_ITS | Encounter Summary ---
Author Organization [facility] Address [facility] [place] [address] Care Team Providers Care Animal Nurse Name Role Phone DioJovani franks Primary Care Provider Encounter Details Date Type Department Care Team (Latest Contact Info) Description 06/23/2020 2:15 PM EST Clinical Support Dermatology at [facility] [address] [place] [address] Dominguez Lopez MD [facility] DR TOM [place] [address] Visit for suture removal Social History Tobacco [...] 7:30 AM EDT Hospital Encounter [place] [address] Lawrence Gar MD [facility] [place] [address] 01/02/2024 7:30 AM EDT - 01/02/2024 8:30 AM EDT [place] [address] Lawrence Gar MD [facility] [place] [address] EGD, UPPER GI ENDOSCOPY (WRVU 2.09) 11/17/2024 4:20 PM EDT Office [place] [address] Lawrence Gar MD [facility] [place] [address] Scheduled Procedures Name Priority Associated Diagnoses Date/Ti me EGD, UPPER GI ENDOSCOPY (WRVU 2.09) Sharma's esophagus with dysplasia 01/02/2024 7:30 AM EDT documented as of this encounter Visit Diagnoses Diagnosis Visit for suture removal Encounter for removal of sutures Sharma's esophagus with dysplasia Sharma's esophagus documented in this encounter Care Teams Animal Nurse Relationship Specialty Start Date End Date Jovani Wharton DO [address] [place] [address] PCP - General Family Medicine 10/18/16 06/18/22 documented as of this encounter
--- OUTSIDE RECORDS SUMMARY | 2023-12-20 02:24 | XMS_ITS | Encounter Summary ---
Author Organization [facility] Address [facility] [place] [address] Care Team Providers Care Cuff Maker Name Role Phone Jovani Wharton DO Primary Care Provider Reason for Visit * Consultation (Routine) - Specialty Diagnoses / Procedures Referred By Devaughn bobo Referred To Contact Dermatology Diagnoses Basal cell carcinoma Jovani Wharton DO [address] [place] [address] [facility] Dermatology [address] [place] [address] Referral ID Status Reason Start Date Expiration Date V isits Requested Visits Authorized [id number] Consult, Test & Treat PCP Updated and/or Approved 05/15/2019 11/14/2019 6 6 Encounter Details Date Type Department Care Team (Late st Contact Info) Description 05/25/2019 9:15 AM EST Office Visit Dermatology at [facility] [address] [place] [address] Deb Hamlin MD [facility] DR T[place] [address] Neoplasm of uncertain behavior of skin; AK (actinic keratosis) Social History Tobacco Use Types Packs/Day Years Used Date Smoking Tobacco: Never Smokeless Tobacco: Never Sex and Gender Information Value Date Recorded Sex Assigned at Not on file Gender Identity Not on file Sexual Orientation Not on file documented as of this encounter Patient Instructions * Patient Instructions* Vipul Crouch LPN - 05/25/2019 9:15 AM EST [...] 64 y.o. established patient. Last seen in [facility] Dermatology: 06/18/2018 Here today with the [...] charted with patient's consent: Note initiated by VIPUL CROUCH LPN. VIPUL CROUCH LPN has performed the documentation for this encounter in the presence of and acting as a scribe for Dr. Hamlin. I performed the above scribed service and agree with the accuracy of the documentation in this encounter. Reviewed and signed by: Deb Hamlin MD Dermatology [facility] * Deb Hamlin MD - 05/25/2019 9:15 [...] 7:30 AM EDT Hospital Encounter [place] [address] Lawrence Gar MD [facility] [place] [address] 01/02/2024 7:30 AM EDT - 01/02/2024 8:30 AM EDT Surgery [place] [address] Lawrence Gar MD [facility] [place] [address] EGD, UPPER GI ENDOSCOPY (WRVU 2.09) 11/17/2024 4:20 PM EDT Office Visit [place] [address] Lawrence Gar MD [facility] [place] [address] Scheduled Procedures Name Priority Associated Diagnoses Date/Ti [...] Surgical Pathology Report (05/25/2019 9:57 AM EST) FINAL DIAGNOSIS (AP) [id number] ? Location: H[facility] The signing pathologist has (i) examined the relevant preparation(s) for the specimen(s) and (ii) rendered or confirmed the diagnosis(es). . ?Surgical Pathology DIAGNOSIS A. Skin, left earlobe, shave biopsy: - ??Invasive squamous cell carcinoma, well to moderately differentiated, present at the peripheral and deep specimen edges Electronically signed by: ??Anthony HENDRICKS, PhD, Bob Verified: ??05/26/2019 ?Dermatopathol ogist Performed at: ??-[facility] Dept. of Pathology, [place], [place] CLINICAL INFORMATION Specimen Submitted: A - Skin, left earlobe, shave biopsy ONLY (1) Clinical History and Diagnosis: 6 mm firm pink tender nodule, SCC versus less likely BCC versus AFX SPECIMEN PROCESSING A - Labeled/Fixativ e: Left ear lobe, formalin. Quantity/Size: ??Single, single 0.7 x 0.5 x 0.4 cm. Tissue Description: March Arb-white granular skin shave. Sections/Proces sing: Inked, bisected and entirely submitted in 1 cassette labeled A1. ??MLL 05/26/2019 11:45 AM EST [facility] 05/25/2019 9:57 AM EST Deb Hamlin MD PATHOLOGY/CYTOLOGY O RDERABLES [facility] [place] [address] * Specimen to Pathology (05/25/2019 9:57 AM EST) AP Specimen 05/25/2019 9:57 AM EST 05/25/2019 2:59 PM EST Narrative [facility] - 05/25/2019 3:00 PM EST Specimen requisition ordered. ??Separate Pathology report to follow Resulting Agency Comment Spec In Lab Deb Hamlin MD PATHOLOGY/CYTOLOGY O RDERABLES [facility] [place] [address] documented in this encounter Visit Diagnoses Diagnosis Neoplasm of uncertain behavior of skin AK (actinic keratosis) Actinic keratosis Sharma's esophagus with dysplasia Sharma's esophagus documented in this encounter Care Teams Cuff Maker Relationship Specialty Start Date End Date Jovani Wharton DO [address] [place] [address] [address] [place] [address] PCP - General Family Medicine 10/18/16 06/18/22 documented as of this encounter
--- OUTSIDE RECORDS SUMMARY | 2023-12-20 02:24 | XMS_ITS | Encounter Summary ---
Author Organization [facility] Address [facility] [place] [address] Care Team Providers Care Manager Power Name Role Phone DioJovani franks Primary Care Provider [phone] Encounter Details Date Type Department Care Team (Late st Contact Info) Description 01/14/2020 11:00 AM EDT Office Visit Dermatology at [facility] [address] [place] [address] Deb Hamlin MD [facility] [place] [address] Actinic keratoses; History of SCC (squamous cell [...] No ?? Other No ? 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 Medications: allopurinoL, amLODIPine, augmented betamethasone [...] ill defined gritty papules on the right anabaptism x3, left cheek x2, left forehead x1, [...] and signed by: Deb Hamlin MD Dermatology [facility] documented in this encounter Plan of Treatment Upcoming Encounters Date Type Department Care Team (Latest Contact Info) Description 01/02/2024 7:30 AM EDT Hospital Encounter [place] [address] Lawrence Gar MD [facility] [place] [address] 01/02/2024 7:30 AM EDT - 01/02/2024 8:30 AM EDT Surgery [place] [address] Lawrence Gar MD [facility] [place] [address] EGD, UPPER GI ENDOSCOPY (WRVU 2.09) 11/17/2024 4:20 PM EDT Office Visit [place] [address] Lawrence Gar MD [facility] [place] [address] Scheduled Procedures Name Priority Associated Diagnoses Date/Ti me EGD, UPPER GI ENDOSCOPY (WRVU 2.09) Sharma's esophagus with dysplasia 01/02/2024 7:30 AM EDT documented as of this encounter Visit Diagnoses Diagnosis Actinic keratoses Actinic keratosis History of SCC (squamous cell carcinoma) of skin Personal history of other malignant neoplasm of skin Sharma's esophagus with dysplasia Sharma's esophagus documented in this encounter Care Teams Manager Power Relationship Specialty Start Date End Date Jovani Wharton DO [address] [place] [address] PCP - General Family Medicine 10/18/16 06/18/22 documented as of this encounter
--- OUTSIDE RECORDS SUMMARY | 2023-12-20 02:24 | XMS_ITS | Encounter Summary ---
Author Organization [facility] Address [facility] [place] [address] Care Team Providers Care Bereavement Program Coordinator Name Role Phone DioJovani franks Primary Care Provider [phone] Encounter Details Date Type Department Care Team (Late st Contact Info) Description 08/11/2020 10:00 AM EDT Office Visit Dermatology at [facility] [address] [place] [address] Deb Hamlin MD [facility] DR TOM F[place] [address] [place] (actinic keratosis); Nummular eczema Social History [...] by Dr. Hamlin: 04/25/2020 Last seen in [facility] Dermatology: 04/25/2020 Here today with the [...] allopurinoL, amLODIPine, cephALEXin, cyanocobalamin (Vitamin B-12), lansoprazole, ifwimr-ncjebthb-zgzeasc DR, lisinopriL, magnesium, and metoprolol succinate XL [...] and signed by: Deb Hamlin MD Dermatology [facility] documented in this encounter Plan of Treatment Upcoming Encounters Date Type Department Care Team (Latest Contact Info) Description 01/02/2024 7:30 AM EDT Hospital Encounter [place] [address] Lawrence Gar MD [facility] DR [place]STR[place] [address] 01/02/2024 7:30 AM EDT - 01/02/2024 8:30 AM EDT Surgery [place] [address] Lawrence Gar MD [facility] DR [place] [address] EGD, UPPER GI ENDOSCOPY (WRVU 2.09) 11/17/2024 4:20 PM EDT Office Visit [place] [address] Lawrence Gar MD [facility] DR [place] [address] Scheduled Procedures Name Priority Associated Diagnoses Date/Ti az EGD, UPPER GI ENDOSCOPY (WRVU 2.09) Sharma's esophagus with dysplasia 01/02/2024 7:30 AM EDT documented as of this encounter Visit Diagnoses Diagnosis AK (actinic keratosis) Actinic keratosis Nummular eczema Contact dermatitis and other eczema, due to unspecified cause Sharma's esophagus with dysplasia Sharma's esophagus documented in this encounter Care Teams Bereavement Program Coordinator Relationship Specialty Start Date End Date Jovani Wharton DO [address] [place] [address] PCP - General Family Medicine 10/18/16 06/18/22 documented as of this encounter
--- OUTSIDE RECORDS SUMMARY | 2023-12-20 02:24 | XMS_ITS | Encounter Summary ---
Author Organization [facility] Address [facility] [place] [address] Care Team Providers Care I&C Tech Name Role Phone Jovani Wharton DO Primary Care Provider Reason for Visit * Consultation (Routine) - Specialty Diagnoses / Procedures Referred By Devaughn bobo Referred To Contact Nephrology Diagnoses Acute kidney failure, unspecified Chronic kidney disease, unspecified Jovani Wharton DO [address] [place] [address] [facility] [address] [place] [phone] Referral ID Status Reason Start Date Expiration Date V isits Requested Visits Authorized [id number] Consult, Test & Treat PCP Updated and/or Approved 12/15/2019 12/14/2020 1 1 Encounter Details Date Type Department Care Team (Latest Contact Info) Description 04/20/2020 4:30 PM EST Office Visit Nephrology [place] [address] Jorge Gonzales MD [facility] [place] [address] CKD (chronic kidney disease) stage [...] heavily. He had a recent admission to [facility] with pancreatitis. On 04-11-2020 his creatinine [...] 7:30 AM EDT Hospital Encounter [place] [address] Lawrence Gar MD [facility] DR [place] [address] 01/02/2024 7:30 AM EDT - 01/02/2024 8:30 AM EDT Surgery [place] [address] Lawrence Gar MD [facility] DR [place] [address] EGD, UPPER GI ENDOSCOPY (WRVU 2.09) 11/17/2024 4:20 PM EDT Office [place] [address] Lawrence Gar MD [facility] DR [place] [address] Scheduled Orders Name Type Priority Associated Diagnoses [...] Scheduled Procedures Name Priority Associated Diagnoses Date/Ti nm EGD, UPPER GI ENDOSCOPY (WRVU 2.09) Sahrma's esophagus with dysplasia 01/02/2024 7:30 AM EDT [...] 5:20 PM EST) Neutrophils % 58.6 % [facility] Neutr Abs (ANC) 2.93 1.70 - 6.10 x10(3)/[facility] Lymphocytes % 18.6 % [facility] Lymphocytes Abs 0.9 0.9 - 3.2 x10(3)/[facility] Monocytes % 15.2 % [facility] Monocyte Abs 0.8 0.3 - 0.9 x10(3)/[facility] Eosinophils % 6.0 % [facility] Eosinophils Abs 0.3 0.0 - 0.4 x10(3)/[facility] Basophils % 1.4 % [facility] Basophils Abs 0.1 0.0 - 0.1 x10(3)/[facility] Immature Gran % 0.20 % [facility] Comment: Immature granulocytes(IG's)percentage and absolute count will include metamyelocytes, myelocytes, and promyelocytes. Blood smears from CBCs yielding IG's will be scanned manually for concordance. If this scan disagrees with the automated IG or if promyelocytes are noted, a manual differential will be performed. Raya Gran Abs 0.01 0.00 - 0.04 x10(3)/[facility] Blood specimen (specimen) 04/20/2020 5:20 PM EST 04/20/2020 5:27 PM EST Narrative Resulting Agency Comment Spec In Lab Jorge Gonzales MD HEMATOLOGY ORDERABL ES [facility] [place] [address] * (ABNORMAL) Hemogram (04/20/2020 5:20 PM EST) WBC 5.0 4.0 - 9.5 x10(3)/[facility] RBC 3.53(L) 4.58 - 5.54 x10(6)/[facility] Hemoglobin 11.0(L) 13.7 - 16.5 gm/dL [facility] Hematocrit 34.3(L) 40.5 - 48.5 % [facility] MCV 97.2(H) 82.9 - 93.1 fL [facility] MCH 31.2 27.5 - 32.1 pg [facility] MCHC 32.1 32.0 - 35.7 gm/dL [facility] Platelets 211 145 - 357 x10(3)/[facility] RDWSD 48.3(H) 36.0 - 45.0 [facility] RDWCV 13.5 11.4 - 13.8 % [facility] MPV 10.6 7.6 - 12.9 [facility] nRBC % Auto 0.0 % [facility] nRBC Abs Auto 0.000 0.000 - 0.000 x10(3)/[facility] Blood specimen (specimen) 04/20/2020 5:20 PM EST 04/20/2020 5:27 PM EST Narrative Resulting Agency Comment Spec In Lab Jorge Gonzales MD HEMATOLOGY ORDERABL ES Performing Organization Address [facility] Co de Phone Number [facility] [address] * PTH (04/20/2020 5:20 PM EST) PTH 51 15 - 65 pg/mL [facility] Blood specimen (specimen) 04/20/2020 5:20 PM EST 04/20/2020 5:27 PM EST Narrative Resulting Agency Comment Spec In Lab Jorge Gonzales MD CHEMISTRY ORDERABLE S Performing Organization Address [facility] Co de Phone Number [facility] [address] * (ABNORMAL) Basic Metabolic Panel (non-fasting) (04/20/2020 5:20 PM EST) Glucose Lvl 117 65 - 199 mg/dL [facility] Comment:Diabetes: >=200 mg/d L plus symptoms BUN 56(H) 10 - 20 mg/dL [facility] Creatinine 2.71(H) 0.80 - 1.50 mg/dL [facility] Sodium 140 135 - 145 mmol/L [facility] Potassium 4.5 3.5 - 5.0 mmol/L [facility] Comment: Please note: ??Patients with WBC >100,000 may have falsely elevated Potassium levels. ??For accurate Potassium quantification in these patients send serum separator tube (gold top) for subsequent determinations. ??Contact the Clinical Chemistry Laboratory if there are any questions. Chloride 107 98 - 107 mmol/L [facility] CO2 21(L) 22 - 31 mmol/L [facility] Anion Gap 12 5 - 15 mmol/L [facility] Calcium 9.7 8.5 - 10.5 mg/dL [facility] Estimated GFR 23(L) >=60 mL/min/1. 73 m?? [facility] Comment: The eGFR was calculated using the CKD-EPI equation. As with all creatinine based estimates of kidney function, eGFR values calculated with the CKD-EPI equation are not accurate in patients with acute kidney failure, extremes of body mass or the acutely ill. http://[employer]/[facility]ATIONnkf eGFR 27(L) >=60 mL/min/1. 73 m?? [facility] Comment: The eGFR was calculated using the CKD-EPI equation. As with all creatinine based estimates of kidney function, eGFR values calculated with the CKD-EPI equation are not accurate in patients with acute kidney failure, extremes of body mass or the acutely ill. http://[employer]/[facility]IATIONnkf Blood specimen (specimen) 04/20/2020 5:20 PM EST 04/20/2020 5:27 PM EST Narrative Resulting Agency Comment Spec In Lab Jorge Gonzales MD CHEMISTRY ORDERABLE S [facility] [address] * Hepatic Function Panel (04/20/2020 5:20 PM EST) Total Protein 7.1 6.1 - 8.0 gm/dL [facility] Albumin 4.5 3.2 - 5.2 gm/dL [facility] AST 29 0 - 39 unit/L [facility] ALT 43 0 - 55 unit/L [facility] Alk Phos 82 40 - 130 unit/L [facility] Total Bilirubin 0.2 0.2 - 1.3 mg/dL [facility] Bili, Direct 0.1 0.0 - 0.3 mg/dL [facility] Blood specimen (specimen) 04/20/2020 5:20 PM EST 04/20/2020 5:27 PM EST Narrative Resulting Agency Comment Spec In Lab Jorge Gonzales MD CHEMISTRY ORDERABLE S Performing Organization Address City/[facility] Co de Phone Number [facility] [address] * (ABNORMAL) Protein/Creatinine Ratio, urine (04/20/2020 4:30 PM EST) U Creatinine 128 mg/dL [facility] U Protein Ran 110(H) 0 - 12 mg/dL [facility] Prot/Cre Ratio 0.9 ratio [facility] Urine specimen (specimen) 04/20/2020 4:30 PM EST 04/20/2020 5:12 PM EST Narrative Resulting Agency Comment Spec In Lab Jorge Gonzales MD URINE ORDERABLES Performing Organization Address City/[facility] Co de Phone Number [facility] [address] documented in this encounter Visit Diagnoses Diagnosis CKD (chronic kidney disease) stage 2, GFR 60-89 ml/min Chronic kidney disease, Stage II (mild) Sharma's esophagus with dysplasia Sharma's esophagus documented in this encounter Care Teams I&C Tech Relationship Specialty Start Date End Date Jovani Wharton DO [address] [place] [address] [address] [place] [address] PCP - General Family Medicine 10/18/16 06/18/22 documented as of this encounter
--- OUTSIDE RECORDS SUMMARY | 2023-12-20 02:24 | XMS_ITS | Encounter Summary ---
Author Organization [facility] Address [facility] [place] [address] Care Team Providers Care Risk Manager Name Role Phone Dio, Jovani MCCAIN Primary Care Provider Encounter Details Date Type Department Care Team (Latest Contact Info) Description 10/20/2020 11:58 AM EDT - 10/20/2020 4:07 PM EDT Hospital En[place] [address] Lawrence Gar MD [facility] [place] [address] Alcohol-induced chronic pancreatitis; Screen for colon cancer [...] the day after the procedure, use an iohv-xtn-errzgiw spray to numb your throat. Sucking on [...] occurs, please contact your Doctor. Please call [phone] before 8pm Mon-Fri with problems, questions or concerns. If you call after 8pm or on weekends, call the Hospital at [phone] and ask to speak to the Press Service Reader application integration specialist and the concrete products machine operator will contact that person for you. When should you call for help? Call [phone] anytime you think you may need emergency [...] any problems. Where can you learn more? [facility] View your After Visit Summary and more online at [email or web address] If you would like to provide feedback about your hospital experience, please call the Office of Patient and Family Relations at . If you have received this After Visit Summary in error, please immediately return it in person to the department, or notify the [facility] Privacy Office by calling toll free at between the hours of 8AM and 5PM to arrange for our retrieval of the documents at no cost to you. Content Version: 12.2 ?? [id number] [employer]. Care instructions adapted under license by [facility]. If you have questions about a medical condition or this instruction, always ask your healthcare professional. [employer] disclaims any warranty or liability for your [...] the day after the procedure, use an muoh-juy-turzduj spray to numb your throat. Sucking on [...] occurs, please contact your Doctor. Please call [phone] before 8pm Mon-Fri with problems, questions or concerns. If you call after 8pm or on weekends, call the Hospital at [phone] and ask to speak to the Press Service Reader application integration specialist and the concrete products machine operator will contact that person for you. When should you call for help? Call [phone] anytime you think you may need emergency [...] After Visit Summary and more online at [email or web address] If you would like to provide feedback [...] cost to you. Content Version: 12.2 ?? [id number] [employer]. Care instructions adapted under license by [facility]. If you have questions about a medical condition or this instruction, always ask your healthcare professional. [employer] disclaims any warranty or liability for your [...] x 3 weeks 40 g 08/11/2020 08/17/2022 ezbtyo-cpdwkihr-tcdofb e (Creon 6) 6,000-19,000 -30,000 unit Capsule, [...] to Encounter Medication Sig Dispense Refill ??? vyimyp-rdroumcj-sggsxcy DR (Creon 6) 6,000-19,000 -30,000 unit Capsule, [...] Gar MD - 10/20/2020 1:12 PM EDT [facility] Operative Note Patient Name: Mathew Mendez : [id number] MR#: [id number] Case Date: 10/20/2020 Surgeon: Surgeon(s) and Role: [...] 7:30 AM EDT Hospital En[place] [address] Lawrence Gar MD [facility] [place] [address] 01/02/2024 7:30 AM EDT - 01/02/2024 8:30 AM EDT [place] [address] Lawrence Gar MD [facility] [place] [address] EGD, UPPER GI ENDOSCOPY (WRVU 2.09) 11/17/2024 4:20 PM EDT Office [place] [address] Lawrence Gar MD [facility] [place] [address] Scheduled Procedures Name Priority Associated Diagnoses Date/Ti [...] 2:16 PM EDT Colonoscopy, Remv Lesn, Snare ([id number]) 10/20/2020 1:03 PM EDT Alcohol-induced chronic pancreatitis Screen for colon cancer Gastroesophageal reflux disease, unspecified whether esophagitis present UPPER EUS- ENDOSCOPIC ULTRASOUND (WRVU 3.47) 10/20/2020 1:03 PM EDT Alcohol-induced chronic pancreatitis Screen for colon cancer Gastroesophageal reflux disease, unspecified whether esophagitis present Upper Gi Endoscopy, Biopsy ([id number]) 10/20/2020 1:03 PM EDT Alcohol-induced chronic pancreatitis Screen for colon cancer Gastroesophageal reflux disease, unspecified whether esophagitis present UPPER EUS-ENDOSCOPIC ULTRASOUND Routine 10/20/2020 12:46 PM EDT COLONOSCOPY Routine 10/20/2020 12:46 PM EDT documented in this encounter Results * Surgical Pathology Report (10/20/2020 2:16 PM EDT) FINAL DIAGNOSIS (AP) [id number] ? Location: 4T; EA12; A The signing [...] Shyla Verified: ??11/02/2020 15:00 ??Pathologist Performed at: ??-[facility] Dept. of Pathology, [place], [place] DISCUSSION A - ??The findings are [...] and bisected ??MLL 11/02/2020 3:00 PM EDT [facility] 10/20/2020 2:16 PM EDT Lawrence Gar MD PATHOLOGY/[place] [address] * Specimen to Pathology (10/20/2020 2:16 PM EDT) AP Specimen 10/20/2020 2:16 PM EDT 10/20/2020 2:16 PM EDT [facility] - 10/20/2020 2:16 PM EDT Specimen requisition ordered. ??Separate Pathology report to follow Lawrence Gar MD PATHOLOGY/CYTOLOGY O [place] Performing Organization Address [facility] [place] [address] * Specimen to Pathology (10/20/2020 2:16 PM EDT) AP Specimen 10/20/2020 2:16 PM EDT 10/20/2020 2:16 PM EDT [facility] - 10/20/2020 2:16 PM EDT Specimen requisition ordered. ??Separate Pathology report to follow Lawrence Gar MD PATHOLOGY/CYTOLOGY O S[place] Performing Organization Address [facility]/[place] [address] * Specimen to Pathology (10/20/2020 2:16 PM EDT) AP Specimen 10/20/2020 2:16 PM EDT 10/20/2020 2:16 PM EDT [facility] - 10/20/2020 2:16 PM EDT Specimen requisition ordered. ??Separate Pathology report to follow Lawrence Gar MD PATHOLOGY/CYTOLOGY O S[place] Performing Organization Address City/[facility]/[place] [address] * Specimen to Pathology (10/20/2020 2:16 PM EDT) AP Specimen 10/20/2020 2:16 PM EDT 10/20/2020 2:16 PM EDT Narrative [facility] - 10/20/2020 2:16 PM EDT Specimen requisition ordered. ??Separate Pathology report to follow Lawrence Gar MD PATHOLOGY/CYTOLOGY O SONIYA Performing Organization Address [facility] [place] [place] [address] * Specimen to Pathology (10/20/2020 2:16 PM EDT) AP Specimen 10/20/2020 2:16 PM EDT 10/20/2020 2:16 PM EDT Narrative [facility] - 10/20/2020 2:16 PM EDT Specimen requisition ordered. ??Separate Pathology report to follow Lawrence Gar MD PATHOLOGY/CYTOLOGY O SONIYA Performing Organization Address [facility] [place] [address] * UPPER EUS-ENDOSCOPIC ULTRASOUND (10/20/2020 12:46 PM EDT) UPPER ENDOSCOPIC ULTRASOUND [facility] Endoscopy Procedure Date: 10/20/2020 12:46 PM ? Patient Name: Mathew Mendez ? N: [id number] ? Date of : 1955 ? Age: 65 ? Order #: [id number] ? Instrument Name: [id number] ? Procedure: ? Upper EUS Indications: ? Dysphagia, Follow-up of ? gastro-esophageal reflux disease Providers: ? Lawrence Gar MD, Sarina Pinto, ? Ilya cSales MD: ?Jovani Wharton, DO Medicines: ? Monitored Anesthesia Care Complications: ? No immediate complications. Procedure: ? Pre-Anesthesia Assessment: ? - [place] Protocol: ? - Pre-procedure Verification: Prior ? [...] by the physician, the nurse, ? the park ranger and the operating room technician in ? the pre-procedure area in [...] Procedure Code(s): ?? --- Professional --- ? 10693, Esophagogastroduodenos copy, ? flexible, transoral; with endoscopic ? ultrasound examination, including the ? esophagus, stomach, and either the ? duodenum or a surgically altered ? stomach where the jejunum is examined ? distal to the anastomosis ? 24913, Esophagogastroduodenos copy, ? flexible, transoral; with biopsy, [...] in this report are preliminary and upon medical insurance coder review may be revised to meet [...] * COLONOSCOPY (10/20/2020 12:46 PM EDT) COLONOSCOPY [facility] Endoscopy Procedure Date: 10/20/2020 12:46 PM ? Patient Name: Mathew Mendez ? N: [id number] ? Date of : 1955 ? Age: 65 ? Order #: [id number] ? Instrument Name: [id number] ? Procedure: ? Colonoscopy Indications: ? Screening for colorectal malignant ? neoplasm Providers: ? Lawrence Gar MD, Sarina Pinto, ? Ilya Scales MD: ?Jovani Wharton, DO Medicines: ? Monitored Anesthesia Care Complications: ? No immediate complications. Procedure: ? Pre-Anesthesia Assessment: ? - [place] Protocol: ? - Pre-procedure Verification: Prior ? [...] by the physician, the nurse, ? the park ranger and the operating room technician in ? the procedure room. ? [...] Procedure Code(s): ?? --- Professional --- ? 33589, Colonoscopy, flexible; with ? removal of tumor(s), [...] in this report are preliminary and upon medical insurance coder review may be revised to meet [...] CRNA) documented in this encounter Care Teams Risk Manager Relationship Specialty Start Date End Date Jovani Wharton DO [address] [place] [address] PCP - General Family Medicine 10/18/16 06/18/22 documented as of this encounter
--- OUTSIDE RECORDS SUMMARY | 2023-12-20 02:24 | XMS_ITS | Encounter Summary ---
Author Organization [facility] Address [facility] [place] [address] Care Team Providers Care Car Sales Representative Name Role Phone DioJovani franks Primary Care Provider Reason for Visit * Consultation (Routine) - Closed Specialty Diagnoses / Procedures Referred By Devaughn bobo Referred To Contact Dermatology Diagnoses SCC (squamous cell carcinoma) Deb Hamlin MD [facility] DR TOM [place] [address] Dominguez Lopez MD [facility] DR TOM [place] [address] Referral ID Status Reason Start Date Expiration Date V isits Requested Visits Authorized [id number] Closed Consult, Test & Treat 04/29/2020 04/29/2021 1 1 Encounter Details Date Type Department Care Team (Latest Contact Info) Description 06/14/2020 11:00 AM EST Procedure visit Dermatology at [facility] [address] [place] [address] Dominguez Lopez MD [facility] DR TOM [place] [address] Squamous cell carcinoma of skin of helix [...] until your sutures are removed. 5. Some brake lining curer may need to be delayed or delegated [...] as often as is recommended by your canvas goods maker, for new skin cancers. This is once [...] it. If after hours, please call the site supervising technical operator or [phone] and ask for the canvas goods maker on-call. If you have any non-urgent questions or concerns, please feel free to call my office or contact me through our patient portal, [employer], at [email or web address] How to contact us during business hours Dermatology at [facility] [address]: Mohs scheduling or Mohs follow-up appointments: [phone] documented in this encounter Progress Notes * [...] and follow up with his or her canvas goods maker or other skin provider. 6. Discussed avoiding [...] Reviewed and signed by: Dominguez Lopez [facility] * Dominguez Lopez MD - 06/14/2020 11:00 AM EST Mohs micrographic Surgery Operative Report Patient name: Mathew Mendez : 1955 Date: 06/15/2020 Staff Surgeon: Dominguez Lopez MD PhD Nursing/Materials Management Supervisor(s): Milvia Mancilla RN, Mary LoyaReyes COLEN, Serina Taylor CMA, Alan Jaffe CMA, Analia Mendoza CMA Arts Administrator (s): lEena Barriga Pre-operative diagnosis: Squamous Cell Carcinoma, invasive, [...] The site was confirmed with the patient/authorized sales representative meats/referring physician and/or a photograph form time of [...] Mendez Staff Surgeon: Dominguez Lopez MD PhD Sports Therapist(s): same as above preschool assistant teacher: Serina Taylor CMA Date: 06/15/2020 Clinical Diagnosis: skin and soft tissue defect status post Mohs micrographic surgery Location/Site: Right mid helix Indication: repair of wound with protestant of anatomy/function Defect size to be repaired: [...] Dermatologic Oncology Department of Dermatology [address] [place] [address] Note initiated by Serina Taylor CMA. Serina Taylor CMA has performed the documentation for this encounter in the presence of and acting as a scribe for Dr. Hugo Suarez performed the above scribed service and agree with the accuracy of the documentation in this encounter. Reviewed and signed by: Dominguez Lopez [facility] documented in this encounter Plan of Treatment Upcoming Encounters Date Type Department Care Team (Latest Contact Info) Description 01/02/2024 7:30 AM EDT Hospital En[place] [address] Lawrence Gar MD [facility] DR [place] [address] 01/02/2024 7:30 AM EDT - 01/02/2024 8:30 AM EDT [place] [address] Lawrence Gar MD [facility] DR [place] [address] EGD, UPPER GI ENDOSCOPY (WRVU 2.09) 11/17/2024 4:20 PM EDT Office [place] [address] Lawrence Gar MD [facility] DR 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
--- OUTSIDE RECORDS SUMMARY | 2023-12-20 02:25 | XMS_ITS | Encounter Summary ---
Author Organization [facility] Address [facility] [place] [address] Care Team Providers Care Health Administration Teacher Name Role Phone DioJovani franks Primary Care Provider Encounter Details Date Type Department Care Team (Latest Contact Info) Description 10/18/2016 8:30 AM EDT Office Visit [place] [address] Jorge Gonzales MD [facility] [place] [address] CKD (chronic kidney disease) stage 3, GFR [...] 7:30 AM EDT Hospital En[place] [address] Lawrence Gar MD [facility] DR [place] [address] 01/02/2024 7:30 AM EDT - 01/02/2024 8:30 AM EDT [place] [address] Lawrence Gar MD [facility] DR [place] [address] EGD, UPPER GI ENDOSCOPY (WRVU 2.09) 11/17/2024 4:20 PM EDT Office [place] [address] Lawrence Gar MD [facility] DR [place] [address] Scheduled Procedures Name Priority Associated Diagnoses Date/Ti [...] 9:55 AM EDT) Neutrophils % 65.3 % [facility] Neutr Abs (ANC) 2.98 1.70 - 6.10 x10(3)/mc L [facility] Lymphocytes % 17.9 % [facility] Lymphocytes Abs 0.8(L) 0.9 - 3.2 x10(3)/[facility] Monocytes % 12.0 % [facility] Monocyte Abs 0.6 0.3 - 0.9 x10(3)/[facility] Eosinophils % 3.5 % [facility] Eosinophils Abs 0.2 0.0 - 0.4 x10(3)/[facility] Basophils % 1.1 % [facility] Basophils Abs 0.0 0.0 - 0.1 x10(3)/[facility] Immature Gran % 0.20 % [facility] Comment: Immature granulocytes(IG's)percentage and absolute count will include metamyelocytes, myelocytes, and promyelocytes. Blood smears from CBCs yielding IG's will be scanned manually for concordance. If this scan disagrees with the automated IG or if promyelocytes are noted, a manual differential will be performed. Raya Gran Abs 0.01 0.00 - 0.04 x10(3)/[facility] Blood specimen (specimen) 10/18/2016 9:55 AM EDT 10/18/2016 10:07 AM EDT Narrative Resulting Agency Comment Spec In Lab Jorge Gonzales MD HEMATOLOGY ORDERABL ES [facility] [place] [address] * (ABNORMAL) Hemogram (10/18/2016 9:55 AM EDT) WBC 4.6 4.0 - 9.5 x10(3)/[facility] RBC 3.78(L) 4.58 - 5.54 x10(6)/[facility] Hemoglobin 11.7(L) 13.7 - 16.5 gm/dL [facility] Hematocrit 34.0(L) 40.5 - 48.5 % [facility] MCV 89.9 82.9 - 93.1 fL [facility] MCH 31.0 27.5 - 32.1 pg [facility] MCHC 34.4 32.0 - 35.7 gm/dL [facility] Platelets 192 145 - 357 x10(3)/[facility] RDWSD 40.0 36.0 - 45.0 fL [facility] RDWCV 12.3 11.4 - 13.8 % [facility] MPV 11.2 7.6 - 12.9 [facility] nRBC % Auto 0.0 % [facility] nRBC Abs Auto 0.000 0.000 - 0.000 x10(3)/[facility] Blood specimen (specimen) 10/18/2016 9:55 AM EDT 10/18/2016 10:07 AM EDT Narrative Resulting Agency Comment Spec In Lab Jorge Gonzales MD HEMATOLOGY ORDERABL ES Performing Organization Address City/[facility]/ZIP Co de Phone Number [facility] [place] [address] * PTH (10/18/2016 9:55 AM EDT) Pathologist [facility] PTH 51 15 - 65 pg/mL [facility] Blood specimen (specimen) 10/18/2016 9:55 AM EDT 10/18/2016 10:06 AM EDT Narrative Resulting Agency Comment Spec In Lab Jorge Gonzales MD CHEMISTRY ORDERABLE S [facility] [place] [address] * Protein Electrophoresis, serum (10/18/2016 9:55 AM EDT) Total Prot Elec 7.0 6.1 - 8.0 gm/dL [facility] Albumin Elect 4.59 3.60 - 6.00 gm/dL [facility] Alpha1-Globul in 0.18 0.10 - 0.30 gm/dL [facility] Alpha2-Globul in 0.76 0.40 - 0.90 gm/dL [facility] Beta Globulin 0.69 0.50 - 1.00 gm/dL [facility] Gamma Globulin 0.78 0.50 - 1.30 gm/dL [facility] M1 Band None Detected [facility] Blood specimen (specimen) 10/18/2016 9:55 AM EDT 10/18/2016 10:07 AM EDT Narrative Resulting Agency Comment Spec In Lab Jorge Gonzales MD CHEMISTRY ORDERABLE S [facility] [place] [address] * (ABNORMAL) Basic Metabolic Panel (non-fasting) (10/18/2016 9:55 AM EDT) Glucose Lvl 90 65 - 199 mg/dL [facility] Comment:Diabetes: >=200 mg/d L plus symptoms BUN 39(H) 10 - 20 mg/dL [facility] Creatinine 1.86(H) 0.80 - 1.50 mg/dL [facility] Comment: Please note that the pediatric reference intervals supplied above were not validated at [facility]. Results from pediatric patients should be interpreted in conjunction to the patient's age, height and muscle mass. Sodium 135 135 - 145 mmol/L [facility] Potassium 4.2 3.5 - 5.0 mmol/L [facility] Comment: Please note: ??Patients with WBC >100,000 may have falsely elevated Potassium levels. ??For accurate Potassium quantification in these patients send serum separator tube (gold top) for subsequent determinations. ??Contact the Clinical Chemistry Laboratory if there are any questions. Chloride 97(L) 98 - 107 mmol/L [facility] CO2 21(L) 22 - 31 mmol/L [facility] Anion Gap 17(H) 5 - 15 mmol/L [facility] Calcium 9.0 8.5 - 10.5 mg/dL [facility] Estimated GFR 37(L) >=60 [facility] Comment: This estimated GFR (eGFR) [...] the following links into your internet browser. [email or web address] Blood specimen (specimen) 10/18/2016 9:55 AM EDT 10/18/2016 10:07 AM EDT Narrative Resulting Agency Comment Spec In Lab Jorge Gonzales MD CHEMISTRY ORDERABLE S Performing Organization Address [facility] Co de Phone Number [facility] [place] [address] * (ABNORMAL) Protein/Creatinine Ratio, urine (10/18/2016 8:26 AM EDT) U Creatinine 70 mg/dL [facility] U Protein Ran 20(H) 0 - 12 mg/dL [facility] Prot/Cre Ratio 0.3 ratio [facility] Urine specimen (specimen) 10/18/2016 8:26 AM EDT 10/18/2016 11:35 AM EDT Narrative Resulting Agency Comment Spec In Lab Jorge Gonzales MD URINE ORDERABLES Performing Organization Address City/[facility]/ZIP Co de Phone Number [facility] [place] [address] * (ABNORMAL) Protein Electrophoresis, urine, random (10/18/2016 8:26 AM EDT) U Protein Ran 20(H) 0 - 12 mg/dL [facility] U Albumin 76 % total [facility] U Globulin 24 % total [facility] U M Band None Detected [facility] U PEP Comments See Note [facility] Comment: There is no evidence of clonal free light chains in this patient's urine sample. Urine specimen (specimen) 10/18/2016 8:26 AM EDT 10/18/2016 11:35 AM EDT Narrative Resulting Agency Comment Spec In Lab Jorge Gonzales MD URINE ORDERABLES [facility] [place] [address] documented in this encounter Visit Diagnoses Diagnosis CKD (chronic kidney disease) stage 3, GFR 30-59 ml/min- Primary Chronic kidney disease, Stage III (moderate) Sharma's esophagus with dysplasia Sharma's esophagus documented in this encounter Care Teams Health Administration Teacher Relationship Specialty Start Date End Date Jovani Wharton DO [address] [place] [address] PCP - General Family Medicine 10/18/16 06/18/22 documented as of this encounter
--- OUTSIDE RECORDS SUMMARY | 2023-12-20 02:25 | XMS_ITS | Encounter Summary ---
Author Organization [facility] [place] [address] Care Team Providers Care Orthodontist Name Role Phone Slade Tran MD Primary Care Provider Encounter Details Date Type Department Care Team (Late st Contact Info) Description 05/03/2004 Orders [place] [phone] Balbir Conroy MD [facility] [place] [address] Social History Tobacco Use Types Packs/Day Years Used Date Smoking Tobacco: Never Assessed Sex and Gender Information Value Date Recorded Sex Assigned at Not on file Gender Identity Not on file Sexual Orientation Not on file documented as of this encounter Plan of Treatment Upcoming Encounters Date Type Department Care Team (Latest Contact Info) Description 01/02/2024 7:30 AM EDT Hospital Encounter [place] [address] Lawrence Gar MD [facility] DR [place] [address] 01/02/2024 7:30 AM EDT - 01/02/2024 8:30 AM EDT Surgery [place] [address] Lawrence Gar MD [facility] [place] [address] EGD, UPPER GI ENDOSCOPY (WRVU 2.09) 11/17/2024 4:20 PM EDT Office Visit Gastroenterology at [facility] [place] [address] Lawrence Gar MD [facility] DR [place] [address] Scheduled Procedures Name Priority Associated Diagnoses Date/Ti me EGD, UPPER GI ENDOSCOPY (WRVU 2.09) Sharma's esophagus with dysplasia 01/02/2024 7:30 AM EDT documented as of this encounter Procedures Procedure Name Priority Date/Time Associated Diagnosis Comments SURGICAL PATHOLOGY REPORT Routine 05/03/2004 8:08 PM EST documented in this encounter Results * Surgical Pathology Report (05/03/2004 8:08 PM EST) Surgical Pathology Report [id number] ? Location: [facility]; [facility]; A The signing pathologist has (i) examined [...] report in rendering the final pathologic diagnosis. [facility] 05/03/2004 8:08 PM EST Balbir Conroy MD PATHOLOGY/CYTOLOGY ORDERABLES [facility] documented in this encounter Visit Diagnoses Not on filedocumented in this encounter Care Teams Orthodontist Relationship Specialty Start Date End Date Slade Tran MD [address] [place] [address] PCP - General Family Medicine 06/19/22 11/05/23 documented as of this encounter
--- OUTSIDE RECORDS SUMMARY | 2023-12-20 02:25 | XMS_ITS | Encounter Summary ---
Author Organization [facility] [place] [address] Care Team Providers Care Mental Health Program Director Name Role Phone Slade Tran MD Primary Care Provider [phone] Encounter Details Date Type Department Care Team (Late st Contact Info) Description 08/04/2003 Orders Only [place] [phone] Balbir Conroy MD [facility] [place] [address] Social History Tobacco Use Types Packs/Day Years Used Date Smoking Tobacco: Never Assessed Sex and Gender Information Value Date Recorded Sex Assigned at Not on file Gender Identity Not on file Sexual Orientation Not on file documented as of this encounter Plan of Treatment Upcoming Encounters Date Type Department Care Team (Latest Contact Info) Description 01/02/2024 7:30 AM EDT Hospital Encounter [place] [address] Lawrence Gar MD [facility] DR GASTROENTER[place] [address] 01/02/2024 7:30 AM EDT - 01/02/2024 8:30 AM EDT Surgery [place] [address] Lawrence Gar MD [facility] DR GASTROENTER[place] [address] EGD, UPPER GI ENDOSCOPY (WRVU 2.09) 11/17/2024 4:20 PM EDT Office Visit Gastroenterology at [facility] [place] [place] [address] Lawrence Gar MD [facility] DR GASTROENTER[place] [address] Scheduled Procedures Name Priority Associated Diagnoses Date/Ti me EGD, UPPER GI ENDOSCOPY (WRVU 2.09) Sharma's esophagus with dysplasia 01/02/2024 7:30 AM EDT documented as of this encounter Procedures Procedure Name Priority Date/Time Associated Diagnosis Comments SURGICAL PATHOLOGY REPORT Routine 08/05/2003 3:31 PM EST documented in this encounter Results * Surgical Pathology Report (08/05/2003 3:31 PM EST) Surgical Pathology Report [id number] ? Location: [facility]; [facility]; A The signing pathologist has (i) examined [...] perforation ?is identified grossly. Sections/Processing : ??(1-2) student services representative terminal margin; ?(3-4) mucosa to hemorrhagic [...] the ?area of perforation. Sections/Processing : ??(1-2) student services representative section of terminal ?margins; (3) perforation; [...] resection margins are histologically viable. CR-0 08/10/03 [facility] 08/10/03 Verified by: ? Bertin Matta MD, [...] on filedocumented in this encounter Care Teams Mental Health Program Director Relationship Specialty Start Date End Date Slade Tran MD [address] [place] [address] PCP - General Family Medicine 06/19/22 11/05/23 documented as of this encounter
[2023-12-20 12:54] LABS: Anion Gap 10.4 mmol/L (3-11); BUN 58 mg/dL (7-18); CO2 24.6 mmol/L (21.0-32.0); Chloride 102 mmol/L (98-107); Estimated GFR 16.42 (mL/min/1.73m2); Glucose 79 mg/dL (74-106); Potassium 5.1 mmol/L (3.5-5.1); Sodium 137 mmol/L (136-145)
[2023-12-20 13:08] LABS: CREATININE 3.8 mg/dL (0.70-1.30)
== END 2023-12-20 01:58 | disposition home or self-care (01) ==
LOC: LBO 01:57
PROVIDERS: PCP Student in an Organized Health Care Education/Training Program; Visit Provider Internal Medicine Nephrology
DX: N18.4 Chronic kidney disease, stage 4 (severe) (principal); I10 Essential (primary) hypertension
CPT/HCPCS: 36415; 80048

== ENCOUNTER → 2024-01-29 08:55 | Outpatient (BNVA) | payer MEDICARE, SELFPAY | PROVIDERS: PCP Student in an Organized Health Care Education/Training Program; Visit Provider Student in an Organized Health Care Education/Training Program | DX: M75.101 Unspecified rotator cuff tear or rupture of right shoulder, not specified as traumatic (principal); M75.102 Unspecified rotator cuff tear or rupture of left shoulder, not specified as traumatic; M12.811 Other specific arthropathies, not elsewhere classified, right shoulder; M12.812 Other specific arthropathies, not elsewhere classified, left shoulder | CPT/HCPCS: 99213 ==

== ENCOUNTER 2024-02-18 09:15 | Outpatient (REF) | payer MEDICARE, SELFPAY ==
--- OUTSIDE RECORDS SUMMARY | 2024-02-18 09:30 | XMS_ITS | Encounter Summary ---
Author Organization [facility] Address [address] [place] [address] Care Team Providers Care Pavilion Cutter Name Role Phone Slade Tran MD Primary Care Provider [phone] Reason for Visit * Radiology Services (Routine/Next Available) - Authorization Not Required Specialty Diagnoses / Procedures Referred By Contac t Referred To Contact Diagnoses Paraesophageal hernia Procedures FL UGI AIR W RAW STOCK MACHINE FEEDER FL UGI AIR WO RAW STOCK MACHINE FEEDER Ollie Lee MD [address] [place] [address] [address] [place] [address] [facility] Referral ID Status Reason Start Date Expiration Date Visits Requested Visits Authorized [id number] Authorization Not Required 11/23/2021 1 1 Encounter Details Date Type Department Care Team (Latest Contact Info) Description 11/12/2022 10:01 EDT - 11/12/2022 23:59 EDT Hospital Encounter [facility] Radiology Fluoroscopy - [address] [id number] Paraesophageal hernia Discharge Disposition: Home or Self [...] Associated Diagnosis Comments FL UGI AIR W RAW STOCK MACHINE FEEDER Routine 11/12/2022 10 :45 EDT Paraesophageal hernia documented in this encounter Results * FL UGI AIR W RAW STOCK MACHINE FEEDER (11/12/2022 10:45 EDT) Anatomical Region Laterality Modality [...] 11/12/2022 12:01 EDT FL UGI AIR W RAW STOCK MACHINE FEEDER ??11/12/2022 10:30 AM Signs and Symptoms/Comments: ?? 1 year routine post-op check, r/o recurrent hiatal hernia Comparison: Fluoroscopic UGI 08/01/2021. Technique: Single and double contrast views of the thoracic esophagus, stomach, duodenal bulb, and sweep were obtained. Findings: Neurocritical Care Physician film demonstrates surgical clips projecting over the [...] MD - 11/12/2022 FL UGI AIR W RAW STOCK MACHINE FEEDER 11/12/2022 10:30 AM Signs and Symptoms/Comments: 1 year routine post-op check, r/o recurrent hiatal hernia Comparison: Fluoroscopic UGI 08/01/2021. Technique: Single and double contrast views of the thoracic esophagus, stomach,duodenal bulb, and sweep were obtained. Findings: Neurocritical Care Physician film demonstrates surgical clips projecting over the [...] gangrene documented in this encounter Care Teams Pavilion Cutter Relationship Specialty Start Date End Date Slade Tran MD [facility] [place] [place] [address] PCP - General 11/12/22 documented as of this encounter
--- OUTSIDE RECORDS SUMMARY | 2024-02-18 09:30 | XMS_ITS | Encounter Summary ---
Author Organization [facility] Address [address] [place] [address] Care Team Providers Care Contract Clerk Name Role Phone Luis Lauren MD Primary Care Provider [phone] Reason for Visit * Reason Comments Post-OP Follow Up [facility] Encounter Details Date Type Department Care Team (Late st Contact Info) Description 11/23/2021 10:45 EDT Post-op Visit [facility] General Surgery - [address] [address] Ollie Lee MD [address] [place] [address], [address] [place] [address] Paraesophageal hernia (Primary Dx) Social [...] gangrene documented in this encounter Care Teams Contract Clerk Relationship Specialty Start Date End Date Luis Lauren MD [address] [place] [address] PCP - General Family Medicine - Primary Care 11/23/21 11/11/22 documented as of this encounter
--- OUTSIDE RECORDS SUMMARY | 2024-02-18 09:30 | XMS_ITS | Encounter Summary ---
Author Organization [facility] Address [address] [place] [address] Care Team Providers Care Reverse Unit Operator Fisherman Name Role Phone Luis Lauren MD Primary Care Provider [phone] Reason for Referral * Medication Prior Authorization - Closed Specialty Diagnoses / Procedures Referred By Devaughn bobo Referred To Contact Ollie Lee MD [address] [place] [phone] Referral ID Status Reason Start Date Expiration Date Visits Re quested Visits Authorized [id number] Closed 1 1 Reason for Visit * Reason Onset Date Comments Medications Refill 11/23/2021 Encounter Details Date Type Department Care Team (Late st Contact Info) Description 11/23/2021 Telephone [facility] General Surgery - [address] [address] Ollie Lee MD [address] [place] [phone] Medications Refill Social History Tobacco Use [...] Traci Barfield - 11/23/2021 1555 EDT ondamestral- [facility] documented in this encounter Plan of [...] documented as of this encounter Care Teams Reverse Unit Operator Fisherman Relationship Specialty Start Date End Date Luis Lauren MD [address] [place] [address] [place] [address] PCP - General Family Medicine - Primary Care 11/23/21 11/11/22 documented as of this encounter
--- OUTSIDE RECORDS SUMMARY | 2024-02-18 09:30 | XMS_ITS | Encounter Summary ---
Author Organization [facility] Address [address] [place] [address] Care Team Providers Care Medical Technician Assistant Name Role Phone Salde Tran MD Primary Care Provider [phone] Encounter Details Date Type Department Care Team (Late st Contact Info) Description 09/23/2023 Lab Requisition [facility] Pathology & Laboratory Medicine - [facility] [address] [place], [place] [id number] Outr Resulting Lab, Provider Social History Tobacco [...] Lab URINALYSIS O RDERABLES Performing Organization Address [facility] Co de Phone Number [facility] [address] [place] [address] * PROTEIN, TOTAL, RANDOM, URINE (09/23/2023 12:58 EDT) Urine URINE / Unknown 09/23/2023 1 2:58 EDT 09/23/2023 21:05 EDT Provider Outr Resulting Lab URINALYSIS O RDERABLES Performing Organization Address City/[facility] Co de Phone Number [facility] [address] [place] [address] documented in this encounter Visit Diagnoses Not on filedocumented in this encounter Care Teams Medical Technician Assistant Relationship Specialty Start Date End Date [place] [place] [address] PCP - General 11/12/22 documented as of this encounter
--- OUTSIDE RECORDS SUMMARY | 2024-02-18 09:30 | XMS_ITS | Encounter Summary ---
Author Organization [facility] Address [address] [place] [address] Care Team Providers Care Nocturnist Physician Name Role Phone Slade Tarn MD Primary Care Provider [phone] Encounter Details Date Type Department Care Team (Late st Contact Info) Description 04/02/2023 Lab Requisition [facility] Pathology & Laboratory Medicine - [facility] [address] [place], [place] [address] Outr Resulting Lab, Provider Social History Tobacco [...] 19 - 88 pg/mL 04/02/2023 19:37 EST [facility] Blood VENOUS BLOOD / Unknown 04/02/2023 9:10 EST 04/02/2023 17:52 EST Provider Outr Resulting Lab CHEMISTRY & BLOOD GAS ORDERABLES Performing Organization Address City/State/[facility] Co de Phone Number [facility] [address] [place] [address] documented in this encounter Visit Diagnoses Not on filedocumented in this encounter Care Teams Nocturnist Physician Relationship Specialty Start Date End Date Slade Tran MD [address] [place] [address] PCP - General 11/12/22 documented as of this encounter
--- OUTSIDE RECORDS SUMMARY | 2024-02-18 09:30 | XMS_ITS | Referral Summary ---
Author Organization [facility] Address [address] [place] [address] Care Team Providers Care Liquor Blender Name Role Phone Slade Tran MD Primary Care Provider [phone] Allergies Active Allergy Reactions Criticality Noted Date [...] on file Medical Devices Implanted Type Area Supervisor Inspection Department Device Identifier Shelf Expiration Date Model / Serial / Lot Mesh Hernia 4 X 8cm O[employer] Core Permanent - [id number] Implanted:Qty: 1 on 10/25/2021 by Ollie Lee MD at [facility] Mesh N/A: Esophagus [employer] 06/26/2023 [id number] / / [id number] Procedures Procedure Name Priority Date/Time Associated Diagnosis Comments HEPATITIS C AB W REFLEX TO HCV RNA BY PCR Routine 10/20/2021 16:02 EDT from Last 3 Months or Most Recently Relevant to Health Maintenance Results * HEPATITIS C AB W REFLEX TO HCV RNA BY PCR (10/20/2021 16:02 EDT) Hep C Antibody Negative Negative 10/23/2021 10:57 EDT [facility] Blood VENOUS BLOOD / Unknown 10/20/2021 16:02 EDT 10/21/2021 22:12 EDT Provider Outr Resulting Lab CHEMISTRY & BLOOD GAS ORDERABLES [facility] [address] [place] [address] from Last 3 Months or Most Recently Relevant to Health Maintenance Advance Directives For more information, please contact: [phone] Documents on File Type Date Recorded Patient Technical Intern Expl anation Advance 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 Default/Not Discussed Care Teams Liquor Blender Relationship Specialty Start Date End Date Slade Tran MD [address] [place] [address] PCP - General 11/12/22
--- OUTSIDE RECORDS SUMMARY | 2024-02-18 09:30 | XMS_ITS | Encounter Summary ---
Author Organization [facility] Address [address] [place] [address] Care Team Providers Care Inspector Finishing Name Role Phone Jorge Chauhan MD Primary Care Provider Reason for Visit * Reason Onset Date Comments Follow-up Diagnostic PSG 10/27/2021 Encounter Details Date Type Department Care Team (Late st Contact Info) Description 10/27/2021 Telephone [facility] General Surgery - [address] [address] Ollie Lee MD [address] [place] [address], [address] [place] [address] Follow-up Diagnostic PSG Social History [...] on filedocumented in this encounter Care Teams Inspector Finishing Relationship Specialty Start Date End Date Jorge Chauhan MD [address] [place] [address] PCP - General Family Medicine - Primary Care 10/18/21 11/22/21 documented as of this encounter
--- OUTSIDE RECORDS SUMMARY | 2024-02-18 09:30 | XMS_ITS | Encounter Summary ---
Author Organization [facility] Address [address] [place] [address] Care Team Providers Care Business Consult Name Role Phone Jorge Chauhan MD Primary Care Provider Reason for Visit * Auth/Cert Specialty Diagnoses / Procedures Referred By Contac t Referred To Contact Diagnoses Paraesophageal hernia Procedures [place] LAP, REPAIR PARAESOPHAGEAL HERNIA, INCL FUNDOPLASTY W/ MESH Laparoscopic paraesophageal hernia repair with mesh Referral ID Status Reason Start Date Expiration Date Visits Re quested Visits Authorized [id number] 10/05/2021 05/26/2022 1 1 Encounter Details Date Type Department Care Team (Late st Contact Info) Description 10/25/2021 5:47 EDT - 10/26/2021 13:43 EDT Hospital Encounter [facility] Periop Surge Capacity Unit [address] [place] [address] Ollie Lee MD [address] [facility] [address] [place] [address] Discharge Disposition: Home or Self [...] Code Departure Means Destination Home or Self Assisted documented in this encounter Progress Notes * [...] Slaughter MD 10/25/2021 11:51 General Surgery Housestaff #[id number] documented in this encounter H&P Notes * Jesus Herndon MD - 10/25/2021 0614 EDT Day of Surgery H+P Chief Complaint: Paraesophageal hernia HPI: Per Dr. Lee clinic note: This is a 66 y.o. male follows up with me today after being discharged from the hospital for his paraesophageal hernia. Just to summarize, he presented to the hospital in [place] with a paraesophageal hernia that was symptomatic for him. The [facility]'s tendons surgeon that was covering there [...] disease) Stage IV, followed by nephrology @ [facility], no restrictions per pt ??? [...] Consented Jesus Herndon MD 10/25/2021 6:14 Surgery Shoe Repairer Helper Pager #[phone] documented in this encounter Nursing Notes * Mary Banks RN - 10/25/2021 0625 EDT Preop Covid DOS screening questionnaire Please [...] Surgeon - Ollie Lee MD - 10/25/2021 6367 EDT OPERATIVE REPORT SERVICE DATE: 10/25/2021 PREOPERATIVE DIAGNOSIS: Paraesophageal hernia. POSTOPERATIVE DIAGNOSIS: Paraesophageal hernia. PROCEDURES: 1. Laparoscopic paraesophageal hernia repair with mesh. 2. Laparoscopic Toupet fundoplication. SURGEON: Ollie Lee MD, FACS LEAD DRIVER: Jesus Herndon MD ANESTHESIA: General endotracheal and [...] the esophagus, which was encircled with a Wales drain for retraction. Mediastinal dissection of the [...] then brought posterior to the esophagus. The Wales drain was released. A partial posterior fundoplication [...] Ollie Lee MD FACS / CD Confirmation: [id number] Dictation ID: [id number] cc: Ollie Lee MD [facility] WITH [facility], [facility] - Surgery, [address] [place] [address] Jorge Chauhan MD, [place] [address] Jesus Herndon MD, [facility] - House Staff Mail, [address] [place] [address] documented in this encounter Miscellaneous Notes * [...] EDT BRIEF OP NOTE Surgeon: Dr. Lee Lumber Loader: Dr. Herndon Pre-op diagnosis: Paraesophageal hernia Post-op [...] 4.00 - 10.40 K/cmm 10/26/2021 9:[address] [facility] RBC 3.20(L) 4.36 - 5.78 M/cmm 10/26/2021 9:48 [facility] Hemoglobin 9.9(L) 13.8 - 17.3 gm/dL 10/26/2021 9:48 [facility] HCT 29.8(L) 39.5 - 50.2 % 10/26/2021 9:48 [facility] MCV 93 81 - 95 fl 10/26/2021 9:48 [facility] MCH 30.9 27.6 - 33.0 pg 10/26/2021 9:48 [facility] MCHC 33.2 32.8 - 36.4 gm/dL 10/26/2021 9:[address] [facility] RDW-CV 15.5(H) <14.2 % 10/26/2021 9:[address] [facility] RDW-SD 52.9(H) <46.0 fl 10/26/2021 9:[address] [facility] PLT 153 141 - 377 K/cmm 10/26/2021 9:[address] [facility] MPV 11.8 9.5 - 12.7 fl 10/26/2021 9:48 [facility] Blood VENOUS BLOOD / Unknown Venipuncture / Unknown 10/26/2021 9:27 EDT 10/26/2021 9:42 EDT Jesus Herndon MD HEMATOLOGY & PF4 OR DERABLES Performing Organization Address City/State/[facility] Co de Phone Number [facility] [address] [place] [phone] * (ABNORMAL) COMPLETE BLOOD COUNT (10/25/2021 18:32 EDT) WBC 10.43(H) 4.00 - 10.40 K/cmm 10/25/2021 18:48 [facility] RBC 3.33(L) 4.36 - 5.78 M/cmm 10/25/2021 18:48 [facility] Hemoglobin 10.2(L) 13.8 - 17.3 gm/dL 10/25/2021 18:48 [facility] HCT 29.9(L) 39.5 - 50.2 % 10/25/2021 18:48 [facility] MCV 90 81 - 95 fl 10/25/2021 18:48 [facility] MCH 30.6 27.6 - 33.0 pg 10/25/2021 18:48 [facility] MCHC 34.1 32.8 - 36.4 gm/dL 10/25/2021 18:[address] [facility] RDW-CV 15.1(H) <14.2 % 10/25/2021 18:[address] [facility] RDW-SD 49.8(H) <46.0 fl 10/25/2021 18:[address] [facility] PLT 159 141 - 377 K/cmm 10/25/2021 18:[address] [facility] MPV 11.3 9.5 - 12.7 fl 10/25/2021 18:[address] [facility] Blood VENOUS BLOOD / Unknown Venipuncture / Unknown 10/25/2021 18:32 EDT 10/25/2021 18:36 EDT Jesus Herndon MD HEMATOLOGY & PF4 OR DERABLES Performing Organization Address City/State/[facility] Co de Phone Number [facility] [address] [place] [address] * (ABNORMAL) COMPLETE BLOOD COUNT AND DIFFERENTIAL (10/25/2021 12:22 EDT) WBC 12.50(H) 4.00 - 10.40 K/cmm 10/25/2021 12:34 [facility] RBC 3.19(L) 4.36 - 5.78 M/cmm 10/25/2021 12:34 [facility] Hemoglobin 9.9(L) 13.8 - 17.3 gm/dL 10/25/2021 12:34 [facility] HCT 29.4(L) 39.5 - 50.2 % 10/25/2021 12:34 [facility] MCV 92 81 - 95 fl 10/25/2021 12:34 [facility] MCH 31.0 27.6 - 33.0 pg 10/25/2021 12:34 [facility] MCHC 33.7 32.8 - 36.4 gm/dL 10/25/2021 12:34 [facility] RDW-CV 15.2(H) <14.2 % 10/25/2021 12:34 [facility] RDW-SD 51.7(H) <46.0 fl 10/25/2021 12:34 [facility] PLT 161 141 - 377 K/cmm 10/25/2021 12:34 [facility] MPV 11.1 9.5 - 12.7 fl 10/25/2021 12:34 [facility] % Neutrophils 87.5 % 10/25/2021 12:34 [facility] % Lymphocytes 3.7 % 10/25/2021 12:34 [facility] % Monocytes 6.6 % 10/25/2021 12:34 [facility] % Eosinophils 1.4 % 10/25/2021 12:34 [facility] % Basophils 0.3 % 10/25/2021 12:34 [facility] % Immature Grans 0.5 % 10/26/19 12:34 [facility] Absolute Neutrophils 10.95(H) 2.20 - 8.85 K/cmm 10/25/2021 12:34 [facility] Absolute Lymphocytes 0.46(L) 1.09 - 3.30 K/cmm 10/25/2021 12:34 [facility] Absolute Monocytes 0.82(H) 0.10 - 0.80 K/cmm 10/25/2021 12:34 [facility] Absolute Eosinophils 0.17 0.03 - 0.61 K/cmm 10/25/2021 12:34 [facility] ABS Basophils 0.04 0.01 - 0.11 K/cmm 10/25/2021 12:34 [facility] Absolute Immature Grans 0.06 0.00 - 0.06 K/cmm 10/25/2021 12:34 [facility] Type of Differential: Auto 10/25/2021 12:34 [facility] Blood VENOUS BLOOD / Unknown Venipuncture / Unknown 10/25/2021 12:22 EDT 10/25/2021 12:24 EDT Jesus Herndon MD PACKAGES & DNA PROB E ORDERABLES [facility] [address] [place] [address] documented in this encounter Visit Diagnoses Diagnosis [...] 10/26/2021 documented in this encounter Care Teams Business Consult Relationship Specialty Start Date End Date Jorge Chauhan MD [address] [place] [address] PCP - General Family Medicine - Primary Care 10/18/21 11/22/21 documented as of this encounter
--- OUTSIDE RECORDS SUMMARY | 2024-02-18 09:30 | XMS_ITS | Encounter Summary ---
Author Organization [facility] Address [address] [place] [address] Care Team Providers Care Molding Machine Operator Helper Name Role Phone Luis Lauren MD Primary Care Provider [phone] Slade Tran MD Primary Care Provider [phone] Encounter Details Date Type Department Care Team (Late st Contact Info) Description 05/02/2022 Lab Requisition [facility] Pathology & Laboratory Medicine - [facility] [address] [place], [place] [id number] Outr Resulting Lab, Provider Social History Tobacco [...] 19 - 88 pg/mL 05/02/2022 22:[address] [facility] Blood VENOUS BLOOD / Unknown 05/02/2022 11:10 EST 05/02/2022 21:29 EST Provider Outr Resulting Lab CHEMISTRY & BLOOD GAS ORDERABLES Performing Organization Address City/State/[facility] Co de Phone Number [facility] [address] [place] [address] documented in this encounter Visit Diagnoses Not on filedocumented in this encounter Care Teams Molding Machine Operator Helper Relationship Specialty Start Date End Date Luis Lauren MD [address] [place] [address] PCP - General Family Medicine - Primary Care 11/23/21 11/11/22 Slade Tran MD [facility] [place] [address] [place] [address] PCP - General 11/12/22 documented as of this encounter
--- OUTSIDE RECORDS SUMMARY | 2024-02-18 09:30 | XMS_ITS | Encounter Summary ---
Author Organization [facility] Address [address] [place] [address] Care Team Providers Care Fbi Profiler Name Role Phone Luis Lauren MD Primary Care Provider [phone] Reason for Visit * Reason Onset Date Comments Hernia 06/25/2022 Encounter Details Date Type Department Care Team (Late st Contact Info) Description 06/25/[address] [facility] General Surgery - [address] [id number] Ollie Lee MD [address] [facility], [address] [place] [address] Hernia Social History Tobacco Use [...] on filedocumented in this encounter Care Teams Fbi Profiler Relationship Specialty Start Date End Date Luis Lauren MD [address] [address] PCP - General Family Medicine - Primary Care 11/23/21 11/11/22 documented as of this encounter
--- OUTSIDE RECORDS SUMMARY | 2024-02-18 09:30 | XMS_ITS | Encounter Summary ---
Author Organization [facility] Address [address] [place] [address] Care Team Providers Care Applications Manager Name Role Phone Jorge Chauhan MD Primary Care Provider Reason for Visit * Reason Onset Date Comments Other 10/26/2021 Encounter Details Date Type Department Care Team (Late st Contact Info) Description 10/26/2021 Telephone [facility] General Surgery - [address] [phone] Ollie Lee MD 111 [facility], [address] [place] [address] Other Social History Tobacco Use [...] on filedocumented in this encounter Care Teams Applications Manager Relationship Specialty Start Date End Date Jorge Chauhan MD [address] [place] [address] PCP - General Family Medicine - Primary Care 10/18/21 11/22/21 documented as of this encounter
--- OUTSIDE RECORDS SUMMARY | 2024-02-18 09:30 | XMS_ITS | Clinical Summary ---
Author Organization [facility] Address [address] [place] [address] Care Team Providers Care Websphere Commerce Consultant Name Role Phone Slade Tran MD Primary Care Provider [phone] Allergies Active Allergy Reactions Criticality Noted Date [...] sees iropractor about every 4 months Cancer ([facility]) skin cancer lef t ear, removed 2019 Eczema right ankle, has a cream from dermatology CKD (chronic kidney disease) Sta ge IV, followed by nephrology @ [facility], no restrictions per pt Wears hearing aid [...] Completed 10/20/2021 Medical Devices Implanted Type Area Websphere Commerce Consultant Device Identifier Shelf Expiration Date Model / Serial / Lot Mesh Hernia 4 X 8cm [employer] Core Permanent - [id number] Implanted:Qty: 1 on 10/25/2021 by Ollie Lee MD at [facility] Mesh N/A: Esophagus [employer] 06/26/2023 [id number] / / [id number] Procedures Procedure Name Priority Date/Time Associated Diagnosis Comments HEPATITIS C AB W REFLEX TO HCV RNA BY PCR Routine 10/20/2021 16:02 EDT from Last 3 Months or Most Recently Relevant to Health Maintenance Results * HEPATITIS C AB W REFLEX TO HCV RNA BY PCR (10/20/2021 16:02 EDT) Hep C Antibody Negative Negative 10/23/2021 10:57 EDT [facility] Blood VENOUS BLOOD / Unknown 10/20/2021 16:02 EDT 10/21/2021 22:12 EDT Provider Outr Resulting Lab CHEMISTRY & BLOOD GAS ORDERABLES [facility] [address] [place] [address] from Last 3 Months or Most Recently Relevant to Health Maintenance Advance Directives For more information, please contact: [phone] Documents on File Type Date Recorded Patient Letterpress Setter Expl anation Advance 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 Default/Not Discussed Care Teams Websphere Commerce Consultant Relationship Specialty Start Date End Date Slade Tran MD [place] [address] PCP - General 11/12/22
--- OUTSIDE RECORDS SUMMARY | 2024-02-18 09:30 | XMS_ITS | Encounter Summary ---
Author Organization [facility] Address [address] [place] [address] Care Team Providers Care Computer Programming Manager Name Role Phone Luis Lauren MD Primary Care Provider [phone] Reason for Visit * Reason Onset Date Comments Coordination Of Care 04/13/2022 Encounter Details Date Type Department Care Team (Late st Contact Info) Description 04/13/[address] [facility] General Surgery - [facility] [address] [place], [place] [phone] Alanna Dejesus, RN Coordination Of Care Social [...] on filedocumented in this encounter Care Teams Computer Programming Manager Relationship Specialty Start Date End Date Luis Lauren MD [address] [facility] [place] [address] PCP - General Family Medicine - Primary Care 11/23/21 11/11/22 documented as of this encounter
--- OUTSIDE RECORDS SUMMARY | 2024-02-18 09:30 | XMS_ITS | Encounter Summary ---
Author Organization [facility] Address [address] [place] [address] Care Team Providers Care Top Lift Compressor Name Role Phone Slade rTan MD Primary Care Provider [phone] Reason for Visit * Reason Comments Follow-up Ugi same day Encounter Details Date Type Department Care Team (Late st Contact Info) Description 11/12/2022 11:40 EDT Office Visit [facility] General Surgery - [address] [phone] Ollie Lee MD [address] [place] [address], [address] [place] [address] Paraesophageal hiatal hernia (Primary Dx) [...] Shabazz MA - 11/12/2022 1140 EDT [facility] General Surgery [...] that was done for a gastropexy in [place] just before being transferred to our institution [...] Some of this note was transcribed with [employer] dictating software. While it was proofread, it may still contain unnoticed grammatical or word errors due to incorrect transcribing. CC: Primary Care Provider: Slade Tarn MD documented in this encounter Plan of Treatment Not on file documented as of this encounter Visit Diagnoses Diagnosis Paraesophageal hiatal hernia- Primary Diaphragmatic hernia without mention of obstruction or gangrene documented in this encounter Care Teams Top Lift Compressor Relationship Specialty Start Date End Date Slade Tran MD [address] [place] [address] PCP - General 11/12/22 documented as of this encounter
--- OUTSIDE RECORDS SUMMARY | 2024-02-18 09:30 | XMS_ITS | Encounter Summary ---
Author Organization [facility] Address [address] [place] [address] Care Team Providers Care Telephonic Nurse Name Role Phone Luis Lauren MD Primary Care Provider [phone] Reason for Visit * Reason Comments Follow-up Incisional hernia Encounter Details Date Type Department Care Team (Late st Contact Info) Description 08/02/2022 16:40 EST Office Visit [facility] General Surgery - [address] [phone] Ollie Lee MD [address] [place] [address], [address] [place] [address] Incisional hernia, without obstruction or [...] disease) Stage IV, followed by nephrology @ [facility], no restrictions per pt ??? Diverticulitis [...] Some of this note was transcribed with [employer] dictating software. While it was proofread, [...] mouth. added in this encounter Care Teams Telephonic Nurse Relationship Specialty Start Date End Date Luis Lauren MD [address] [place] [address] PCP - General Family Medicine - Primary Care 11/23/21 11/11/22 documented as of this encounter
--- OUTSIDE RECORDS SUMMARY | 2024-02-18 09:30 | XMS_ITS | Encounter Summary ---
Author Organization [facility] Address [address] [place] [address] Care Team Providers Care Blind Stitch Machine Operator Name Role Phone Jorge Chauhan MD Primary Care Provider Reason for Visit * Auth/Cert Specialty Diagnoses / Procedures [facility] Referred To Contact Diagnoses Paraesophageal hernia Procedures OR LAP, REPAIR PARAESOPHAGEAL HERNIA, INCL FUNDOPLASTY W/ MESH Laparoscopic paraesophageal hernia repair with mesh Referral ID Status Reason Start Date Expiration Date Visits Re quested Visits Authorized [id number] 10/05/2021 05/26/2022 1 1 Encounter Details Date Type Department Care Team (Late st Contact Info) Description 10/25/2021 7:25 EDT - 10/25/2021 11:21 EDT Surgery [facility] OR [address] [place] [id number] Ollie Lee MD [address] [place] [address], [facility], [address] [place] [address] Laparoscopic paraesophageal hernia repair with mesh [21460 (CPT??)] Surgery Details Date/Time Status Location OR Service Patient Class Case Class Case Type Trauma Case? 10/25/21 0725 Posted [facility] OR MOR 14 General Extended Stay H [...] Code Departure Means Destination Home or Self Detention documented in this encounter Progress Notes * [...] summarize, he presented to the hospital in [place] with a paraesophageal hernia that was symptomatic for him. The [facility]'s tendons surgeon that was covering there [...] Consented Jesus Herndon MD 10/25/2021 6:14 Surgery Real Estate Executive Assistant Pager #[phone] documented in this encounter Nursing Notes * [...] Toupet fundoplication. SURGEON: Ollie Lee MD, FACS SUPERVISOR LENDING ACTIVITIES: Jesus Herndon MD ANESTHESIA: General endotracheal and [...] the esophagus, which was encircled with a Ferndale drain for retraction. Mediastinal dissection of the [...] then brought posterior to the esophagus. The Ferndale drain was released. A partial posterior fundoplication was performed, suturing the fundus of the stomach to the anterolateral location of the esophagus using 2-0 Surgidac suture. Two sutures were placed on the right side and 3 sutures were placed on the left side, and the upper superior most suture incorporated theanterior left zizy, anchoring the wrap to that location. We [...] Ollie Lee MD FACS / CD Confirmation: [id number] Dictation ID: [id number] cc: Ollie Lee MD [facility], [facility] - Surgery, [address] [place] [address] Jorge Chauhan MD, [place] [address] Jesus Herndon MD, [facility] - House Staff Mail, [address] [place] [address] documented in this encounter Miscellaneous Notes * [...] EDT BRIEF OP NOTE Surgeon: Dr. Lee Logistics Administrator: Dr. Herndon Pre-op diagnosis: Paraesophageal hernia Post-op [...] 4.00 - 10.40 K/cmm 10/26/2021 9:48 EDT [facility] RBC 3.20(L) 4.36 - 5.78 M/cmm 10/26/2021 9:48 EDT [facility] Hemoglobin 9.9(L) 13.8 - 17.3 gm/dL 10/26/2021 9:48 EDT [facility] HCT 29.8(L) 39.5 - 50.2 % 10/26/2021 9:48 EDT [facility] MCV 93 81 - 95 fl 10/26/2021 9:48 EDT [facility] MCH 30.9 27.6 - 33.0 pg 10/26/2021 9:48 EDT [facility] MCHC 33.2 32.8 - 36.4 gm/dL 10/26/2021 9:48 T [facility] RDW-CV 15.5(H) <14.2 % 10/26/2021 9:48 EDT [facility] RDW-SD 52.9(H) <46.0 fl 10/26/2021 9:48 EDT [facility] PLT 153 141 - 377 K/cmm 10/26/2021 9:48 T [facility] MPV 11.8 9.5 - 12.7 fl 10/26/2021 9:48 T [facility] Blood VENOUS BLOOD / Unknown Venipuncture / Unknown 10/26/2021 9:27 EDT 10/26/2021 9:42 EDT Jesus Herndon MD HEMATOLOGY & PF4 OR DERABLES [facility] [address] [place] [address] * (ABNORMAL) COMPLETE BLOOD COUNT (10/25/2021 18:32 EDT) WBC 10.43(H) 4.00 - 10.40 K/cmm 10/25/2021 18:48 EDT [facility] RBC 3.33(L) 4.36 - 5.78 M/cmm 10/25/2021 18:48 EDT [facility] Hemoglobin 10.2(L) 13.8 - 17.3 gm/dL 10/25/2021 18:48 T [facility] HCT 29.9(L) 39.5 - 50.2 % 10/25/2021 18:48 EDT [facility] MCV 90 81 - 95 fl 10/25/2021 18:48 EDT [facility] MCH 30.6 27.6 - 33.0 pg 10/25/2021 18:48 EDT [facility] MCHC 34.1 32.8 - 36.4 gm/dL 10/25/2021 18:48 EDT [facility] RDW-CV 15.1(H) <14.2 % 10/25/2021 18:48 EDT [facility] RDW-SD 49.8(H) <46.0 fl 10/25/2021 18:48 EDT [facility] PLT 159 141 - 377 K/cmm 10/25/2021 18:48 EDT [facility] MPV 11.3 9.5 - 12.7 fl 10/25/2021 18:48 EDT [facility] Blood VENOUS BLOOD / Unknown Venipuncture / Unknown 10/25/2021 18:32 EDT 10/25/2021 18:36 EDT Jesus Herndon MD HEMATOLOGY & PF4 OR DERABLES Performing Organization Address City/State/[facility] Co de Phone Number [facility] [address] [place] [address] * (ABNORMAL) COMPLETE BLOOD COUNT AND DIFFERENTIAL (10/25/2021 12:22 EDT) WBC 12.50(H) 4.00 - 10.40 K/cmm 10/25/2021 12:34 EDT [facility] RBC 3.19(L) 4.36 - 5.78 M/cmm 10/25/2021 12:34 EDT [facility] Hemoglobin 9.9(L) 13.8 - 17.3 gm/dL 10/25/2021 12:34 EDT [facility] HCT 29.4(L) 39.5 - 50.2 % 10/25/2021 12:34 [facility] MCV 92 81 - 95 fl 10/25/2021 12:34 [facility] MCH 31.0 27.6 - 33.0 pg 10/25/2021 12:34 [facility] MCHC 33.7 32.8 - 36.4 gm/dL 10/25/2021 12:34 [facility] RDW-CV 15.2(H) <14.2 % 10/25/2021 12:34 [facility] RDW-SD 51.7(H) <46.0 fl 10/25/2021 12:34 [facility] PLT 161 141 - 377 K/cmm 10/25/2021 12:34 [facility] MPV 11.1 9.5 - 12.7 fl 10/25/2021 12:34 [facility] % Neutrophils 87.5 % 10/25/2021 12:34 [facility] % Lymphocytes 3.7 % 10/25/2021 12:34 [facility] % Monocytes 6.6 % 10/25/2021 12:34 [facility] % Eosinophils 1.4 % 10/25/2021 12:34 [facility] % Basophils 0.3 % 10/25/2021 12:34 [facility] % Immature Grans 0.5 % 10/26/19 12:34 [facility] Absolute Neutrophils 10.95(H) 2.20 - 8.85 K/cmm 10/25/2021 12:34 [facility] Absolute Lymphocytes 0.46(L) 1.09 - 3.30 K/cmm 10/25/2021 12:34 [facility] Absolute Monocytes 0.82(H) 0.10 - 0.80 K/cmm 10/25/2021 12:34 [facility] Absolute Eosinophils 0.17 0.03 - 0.61 K/cmm 10/25/2021 12:34 [facility] ABS Basophils 0.04 0.01 - 0.11 K/cmm 10/25/2021 12:34 EDT [facility] Absolute Immature Grans 0.06 0.00 - 0.06 K/cmm 10/25/2021 12:34 EDT [facility] Type of Differential: Auto 10/25/2021 12:34 EDT [facility] Blood VENOUS BLOOD / Unknown Venipuncture / Unknown 10/25/2021 12:22 EDT 10/25/2021 12:24 EDT Jesus Herndon MD PACKAGES & DNA PROB E ORDERABLES [facility] [address] [place] [address] documented in this encounter Visit Diagnoses Diagnosis [...] Norma Mott RN)0905 (Given - Provider: Mame iNchole RN)1231 (Given - Provider: Mame Nichole RN) [...] 10/26/2021 documented in this encounter Care Teams Blind Stitch Machine Operator Relationship Specialty Start Date End Date Jorge Chauhan MD [address] [place] [address] PCP - General Family Medicine - Primary Care 10/18/21 11/22/21 documented as of this encounter
--- OUTSIDE RECORDS SUMMARY | 2024-02-18 09:30 | XMS_ITS | Encounter Summary ---
Author Organization [facility] Address [address] [place] [address] Care Team Providers Care Operator Name Role Phone Slade Tran MD Primary Care Provider [phone] Encounter Details Date Type Department Care Team (Late st Contact Info) Description 09/23/2023 Lab Requisition [facility] [address] [place], [place] [address] Outr Resulting Lab, Provider Social History Tobacco [...] 61.9 55.8 - 66.1 % 09/24/2023 13:49 [facility] Albumin g/dL 4.1 3.6 - 5.2 g/dL 09/24/2023 13:49 [facility] Alpha-1 % 4.5 2.9 - 4.9 % 09/24/2023 13:49 [facility] Alpha-1 g/dL 0.30 0.15 - 0.40 g/dL 09/24/2023 13:49 [facility] Alpha-2 % 12.3(H) 7.1 - 11.8 % 09/24/2023 13:49 [facility] Alpha-2 g/dL 0.80 0.50 - 1.00 g/dL 09/24/2023 13:49 [facility] Beta % 10.3 8.4 - 13.1 % 09/24/2023 13:49 [facility] Beta g/dL 0.70 0.60 - 1.20 g/dL 09/24/2023 13:49 EDT [facility] Gamma % 11.0(L) 11.1 - 18.8 % 09/24/2023 13:49 EDT [facility] Gamma g/dL 0.70 0.60 - 1.60 g/dL 09/24/2023 13:49 T [facility] SPEP Comment No apparent monoclonal protein seen on serum electrophoresis 09/24/2023 13:49 EDT [facility] Comment:See scanned/suppleme ntary report. Total Protein 6.6 6.3 - 8.2 g/dL 09/24/2023 13:49 EDT [facility] Blood VENOUS BLOOD / Unknown 09/23/2023 12:58 EDT 09/23/2023 21:05 EDT Provider Outr Resulting Lab CHEMISTRY & BLOOD GAS ORDERABLES Performing Organization Address [facility] Co de Phone Number [facility] [address] [place] [address] * PROTEIN, TOTAL (09/23/2023 12:58 EDT) Blood VENOUS BLOOD / Unknown 09/23/2023 12:58 EDT 09/23/2023 21:05 EDT Provider Outr Resulting Lab CHEMISTRY & BLOOD GAS ORDERABLES Performing Organization Address [facility] Co de Phone Number [facility] [address] [place], [place] [address] * IMMUNOGLOBULINS (09/23/2023 12:58 EDT) IgG 671 610 - 1,616 mg/dL 09/24/2023 8:29 EDT [facility] IgA 144 85 - 499 mg/dL 09/24/2023 8:29 EDT [facility] IgM 120 35 - 242 mg/dL 09/24/2023 8:29 EDT [facility] Blood VENOUS BLOOD / Unknown 09/23/2023 12:58 EDT 09/23/2023 21:05 EDT Provider Outr Resulting Lab CHEMISTRY & BLOOD GAS ORDERABLES [facility] [address] [place], [place] [address] documented in this encounter Visit Diagnoses Not on filedocumented in this encounter Care Teams Operator Relationship Specialty Start Date End Date Slade Tran MD [address] [place] [address] PCP - General 11/12/22 documented as of this encounter
--- OUTSIDE RECORDS SUMMARY | 2024-02-18 09:31 | XMS_ITS | Encounter Summary ---
Author Organization [facility] Address [address] [place] [address] Care Team Providers Care Prepared Foods Associate Name Role Phone Dio, Jovani Michel Primary Care Provider [phone] Reason for Visit * Reason Onset Date Comments Other 08/14/2021 Encounter Details Date Type Department Care Team (Late st Contact Info) Description 08/14/2021 Telephone [facility] General Surgery - [facility] [address] [place], [place] [id number] Ollie Lee MD [address] [facility], [address] [place] [address] Other Social History Tobacco Use [...] documented as of this encounter Care Teams Prepared Foods Associate Relationship Specialty Start Date End Date Jovani Wharton DO [address] [place] [address] PCP - General 10/11/16 10/17/21 documented as of this encounter
--- OUTSIDE RECORDS SUMMARY | 2024-02-18 09:31 | XMS_ITS | Encounter Summary ---
Author Organization [facility] Address [address] [place] [address] Care Team Providers Care Drawing Hand Name Role Phone Jorge Chauhan MD Primary Care Provider Reason for Visit * Auth/Cert Specialty Diagnoses / Procedures [facility] Referred To Contact Diagnoses Paraesophageal hernia Procedures [place] LAP, REPAIR PARAESOPHAGEAL HERNIA, INCL FUNDOPLASTY W/ MESH Laparoscopic paraesophageal hernia repair with mesh Referral ID Status Reason Start Date Expiration Date Visits Re quested Visits Authorized [id number] 10/05/2021 05/26/2022 1 1 Encounter Details Date Type Department Care Team (Late st Contact Info) Description 10/25/2021 7:29 EDT Anesthesia Event [facility] [place] OR [address] [place], [place] [phone] Micah Santoro MD [address] [place] [phone] Jennifer Alejo MD [address] [place] [phone] Anesthesia Record Procedure Summary Procedure Name Responsible [...] N; Full thickness 10/25/21 0844 by Karen Reese RN Peripheral IV 10/25/21; 0714; 18; 1.25; B Conner Introcan; Anterior, Right; Forearm; Inserted by RN; 1; None; 3.15% Chlorhexidine with IPA; 10/26/21; 1233; Discharged 10/25/21 0714 by Mary Banks RN 10/26/21 1233 by Mame Nichole RN Non-Surgical Airway 10/25/21; 0808 (carlin barrientos via [...] Yes; 10/25/21; 1105 10/25/21 0845 by Karen Reese, LOYD 10/25/21 1105 by Karen Reese, RN documented in this encounter Social History [...] Complete vitals history is available in the Epicflowsheets. Vitals Value Taken Time BP 10/25/21 1151 [...] during procedure: OR Anesthesiologist: Micah Santoro MD Resident/NEUROLOGICAL SURGERY TEACHER: Jennifer Alejo MD Performed: resident/NEUROLOGICAL SURGERY TEACHER/AA Indications and Patient Condition Indications for airway [...] and paraesophageal hernia who originally presented to [facility] with symptoms of his hernia and was treated with ex lap and gastropexy. Presenting now for laparoscopic paraesophageal hernia repair with mesh, possible open. 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 [...] EDT documented in this encounter Results * WI AN ELECTIVE ENDOTRACHEAL AIRWAY (10/25/2021 7:41 EDT) Narrative Jennifer Alejo MD - 10/25/2021 7:41 EDT Jennifer Alejo MD ? 10/25/2021 ??8:08 Airway Date/Time: 10/25/2021 7:41 Urgency: elective General Information and Staff Patient location during procedure: OR Anesthesiologist: Micah Santoro MD Resident/NEUROLOGICAL SURGERY TEACHER: Jennifer Alejo MD Performed: resident/NEUROLOGICAL SURGERY TEACHER/AA Indications and Patient Condition Indications for airway [...] mg documented in this encounter Care Teams Drawing Hand Relationship Specialty Start Date End Date Jorge Chauhan MD [address] [place] [address] [place] [address] PCP - General Family Medicine - Primary Care 10/18/21 11/22/21 documented as of this encounter
--- OUTSIDE RECORDS SUMMARY | 2024-02-18 09:31 | XMS_ITS | Encounter Summary ---
Author Organization [facility] Address [address] [place] [address] Care Team Providers Care Academic Tutor Name Role Phone Dio Jovani Pearson Primary Care Provider [phone]- [phone] Reason for Visit * Reason Comments Follow-up hospital f/u * Consult (See Order Priority) - Order Cancelled Specialty Diagnoses / Procedures Referred By Devaughn bobo Referred To Contact General Surgery Diagnoses Paraesophageal hernia Ashlie Greene MD [address] [place] [phone] Ollie Lee MD [address] [place] [phone] Referral ID Status Reason Start Date Expiration Date Visits Requested Visits Authorized [id number] Order Cancelled Specialty Services Required 08/11/2021 1 1 Encounter Details Date Type Department Care Team (Late st Contact Info) Description 08/25/2021 10:45 EDT Office Visit [facility] General Surgery - [address] [address] Ollie Lee MD [address] [place] [phone] Paraesophageal hernia (Primary Dx) Social History [...] summarize, he presented to the hospital in [place] with a paraesophageal hernia that was symptomatic for him. [facility] that was covering there performed [...] 08/25/2021 documented in this encounter Care Teams Academic Tutor Relationship Specialty Start Date End Date Jovani Wharton DO [address] [place] [address] PCP - General 10/11/16 10/17/21 documented as of this encounter
--- OUTSIDE RECORDS SUMMARY | 2024-02-18 09:31 | XMS_ITS | Encounter Summary ---
Author Organization [facility] Address [address] [place] [address] Care Team Providers Care Residential Leasing Manager Name Role Phone Jorge Chauhan MD Primary Care Provider Reason for Visit * Reason Onset Date Comments Follow-up Diagnostic PSG 10/24/2021 Encounter Details Date Type Department Care Team (Late st Contact Info) Description 10/24/2021 Telephone [facility] General Surgery - [address] [phone] Ollie Lee MD [address] [place] [address], [address] [place] [address] Follow-up Diagnostic PSG Social History [...] on filedocumented in this encounter Care Teams Residential Leasing Manager Relationship Specialty Start Date End Date Jorge Chauhan MD [address] [place] [address] PCP - General Family Medicine - Primary Care 10/18/21 11/22/21 documented as of this encounter
--- OUTSIDE RECORDS SUMMARY | 2024-02-18 09:31 | XMS_ITS | Encounter Summary ---
Author Organization [facility] Address [address] [place] [address] Care Team Providers Care Flour Mixer Helper Name Role Phone Dio, Jovani Michel Primary Care Provider [phone]- [phone] Encounter Details Date Type Department Care Team (Late st Contact Info) Description 09/26/2021 Orders Only [facility] General Surgery - [address] [phone] Ollie Lee MD [address] [place] [address], [address] [place] [address] Encounter for preoperative screening laboratory [...] 08/08/2021 ?? Chief Complaint/Procedure: PEH; Transferred from [facility] ?? 24 Hr Events: - NAEON [...] Wt 69.7 kg (153 lb 9.6 oz) NfR903% BMI 24.79 kg/m?? Intake/Output: I&O By Type [...] subsequent??colostomy reversal)??who presents as a transfer from [facility] after presenting with acute onset abdominal [...] saw and examined the patient with the neurosurgical nurse practitioner / blue team on 08/08/2021 16:45. I [...] 08/09/2021 ?? Chief Complaint/Procedure: PEH; Transferred from [facility] ?? 24 Hr Events: - NAEON [...] subsequent??colostomy reversal)??who presents as a transfer from [facility] after presenting with acute onset abdominal pain secondary to an incarcerated paraesophageal hernia. He was taken??to the OR on 07/24 for an exploratory laparotomy, lysis of adhesions, reduction of his gastric contents, and suture gastropexy. Transferred to [facility] due to ongoing symptoms with imaging [...] MD 08/09/2021 7:50 General Surgery PGY-5 Pager [phone] ? Cosigned by: Luís Morin MD at 08/09/2021 15:55 ??7:54 Attestation statement: I saw and examined the patient with the neurosurgical nurse practitioner / blue team 08/09/2021 15:55 . I [...] 08/10/2021 ?? Chief Complaint/Procedure: PEH; Transferred from [facility] ?? 24 Hr Events: - No acute events overnight. TPN discontinued. ?? Subjective: [place] in the last 24 hours. Completely [...] subsequent??colostomy reversal)??who presents as a transfer from [facility] after presenting with acute onset abdominal pain secondary to an incarcerated paraesophageal hernia. He was taken??to the OR on 07/24 for an exploratory laparotomy, lysis of adhesions, reduction of his gastric contents, and suture gastropexy. Transferred to [facility] due to ongoing symptoms with imaging [...] MD 08/10/2021 7:18 General Surgery PGY-3 Pager [phone] ? Cosigned by: Luís Morin MD at 08/11/2021 ??8:40 ??7:26 ??8:40 Attestation statement: I saw and examined the patient with the neurosurgical nurse practitioner / blue team 08/11/2021 ??8:40 . I agree with the findings, assessment, and plan as outlined above. documented in this encounter Plan of Treatment Not on file documented as of this encounter Visit Diagnoses Diagnosis Encounter for preoperative screening laboratory testing for COVID-19 virus- Primary documented in this encounter Care Teams Flour Mixer Helper Relationship Specialty Start Date End Date Jovani Wharton DO [address] [place] [address] PCP - General 10/11/16 10/17/21 documented as of this encounter
--- OUTSIDE RECORDS SUMMARY | 2024-02-18 09:31 | XMS_ITS | Encounter Summary ---
Author Organization [facility] Address [address] [place] [address] Care Team Providers Care Hand Driller Name Role Phone Dio Jovani Michel Primary Care Provider +1- [phone] Reason for Visit * Reason Onset Date Comments COVID-19 09/26/2021 COVID-19 10/01/2021 scheduling Encounter Details Date Type Department Care Team (Late st Contact Info) Description 09/26/2021 Telephone [facility] [employer] [address] [place] [address] Ollie Lee MD [address] [facility], [address] [place] [address] COVID-19; COVID-19 (scheduling) Social History [...] 10/01/2021 1431 EDT Patient is going to [facility] to get COVID-19 testing prior to procedure on 10/25. Import Customer Service Manager explained to patient they need to be tested on 10/22 in order to get results back in time. Import Customer Service Manager faxed order. * Telephone Encounter - Karon Phan - 10/01/2021 1056 EDT Called patient to schedule COVID-19 testing. Left message requesting a call back at # [phone].Patient will need to be tested on 10/22, 3 days prior to procedure on 10/25. This is our 2nd attempt at calling the patient. * Telephone Encounter - Alicja Hope - 09/30/2021 1215 EDT MyChart message to patient regarding scheduling. * Telephone Encounter - Philip Martinez - 09/26/2021 1835 EDT Called patient to schedule COVID-19 testing. Requested a call back @[phone]. This is our 1st attempt at contacting the patient. documented in this encounter Plan of Treatment Not on file documented as of this encounter Visit Diagnoses Not on filedocumented in this encounter Care Teams Hand Driller Relationship Specialty Start Date End Date Jovani Wharton DO [address] [place] [address] PCP - General 10/11/16 10/17/21 documented as of this encounter
--- OUTSIDE RECORDS SUMMARY | 2024-02-18 09:31 | XMS_ITS | Encounter Summary ---
Author Organization [facility] Address [address] [place] [address] Care Team Providers Care Corporate Recruiter Name Role Phone Jorge Chauhan MD Primary Care Provider Encounter Details Date Type Department Care Team (Late st Contact Info) Description 10/18/2021 Orders Only [facility] General Surgery - [facility] [address], [place] [id number] Leni Blanchard RN Pre-op evaluation (Primary Dx); [...] gangrene documented in this encounter Care Teams Corporate Recruiter Relationship Specialty Start Date End Date Jorge Chauhan MD [address] [place] [id number] PCP - General Family Medicine - Primary Care 10/18/21 11/22/21 documented as of this encounter
--- OUTSIDE RECORDS SUMMARY | 2024-02-18 09:31 | XMS_ITS | Encounter Summary ---
Author Organization [facility] Address [address] [place] [address] Care Team Providers Care Nuclear Medicine Tech Name Role Phone Jovani Wharton DO Primary Care Provider [phone] Reason for Referral * Specialty Diagnoses / Procedures Referred By Contac t Referred To Contact Sanjuana Gaona NP [address] [place] [phone] Referral ID Status Reason Start Date Expiration Date Visits Re quested Visits Authorized Comments Please call the General Surgery clinic at [phone] if you have any questions for Dr. Lee. Please schedule a follow up in 2-3 weeks. * Specialty Diagnoses / Procedures Referred By Contac t Referred To Contact Sanjuana Gaona NP [address] [place] [phone] Referral ID Status Reason Start Date Expiration [...] Referred To Contact Sanjuana Gaona NP [address] [phone] Referral ID Status Reason Start Date Expiration [...] Referred To Contact Sanjuana Gaona NP [address] [phone] Referral ID Status Reason Start Date Expiration [...] Expiration Date Visits Re quested Visits Authorized [id number] 1 1 Encounter Details Date Type Department Care Team (Late st Contact Info) Description 07/31/2021 18:58 EST - 08/11/2021 12:47 EDT Hospital Encounter [facility] General Surgery Unit [address] [place] [address] Ollie Lee MD [address] [phone] Paraesophageal hernia Discharge Disposition: Home or Self [...] who presented on 07/31/21as a transfer from [facility] after presenting with acute onset abdominal pain secondary to an incarcerated paraesophageal hernia. He was taken to the OR at [facility] where a partial gastric reduction and suture gastropexy was performed at on 07/24/21. Unfortunately, while his symptoms did improve slightly, he still had significant pain and evidence of delayed emptying on UGI study. He was thus transferred to [facility] and continued on the TPN that was started at [facility]. An UGI was obtained the day after admission at [facility] where contrast was seen to traverse [...] Administered Date(s) Administered ??? Covid-19 mRNA Vaccine ([employer] COVID-19) PF 0.3 ml IM (12 yrs+) [...] the left upper quadrant, and outside the [id number]. Soft tissues, bones and extrathoracic findings: There [...] non-reportable exam. FL UGI WO AIR W CORE RESCUER Result Date: 08/01/2021 FL UGI WO AIR W CORE RESCUER 08/01/2021 9:35 AM Signs and Symptoms/Comments: History [...] to tolerate oral intake of contrast. Findings: Shipping Agent KUB demonstrates a large air and contrast-filled [...] Please call the General Surgery clinic at [phone] if you have any questions for Dr. Lee. Please schedule a follow up in 2-3 weeks. Authorizing Provider: Sanjuana Gaona, CARPENTRY TEACHER Please notify your doctor for the following [...] MD 08/11/2021 11:43 General Surgery PGY-5 Pager [phone] documented in this encounter Medications at Time [...] or Self Mcfp documented in this encounter Progress Notes * Lia Willis - 08/11/2021 1232 EDT SOCIAL WORK PROGRESS NOTE: Pt medically cleared to sc home with no CM needs- provide ride at sc. Natalie Willis LMSW Hematology Oncology Consultant II Pager: [phone] * Tomy Dewitt MD - 08/11/2021 0653 EDT Surgery Progress Note Admit Date: 07/31/2021 Hospital Day: LOS: 10 days Date of Service: 08/11/2021 Chief Complaint/Procedure: PEH; Transferred from [facility] 24 Hr Events: - No acute [...] reversal) who presents as a transfer from [facility] after presenting with acute onset abdominal pain secondary to an incarcerated paraesophageal hernia. He was taken to the OR on 07/24 for anexploratory laparotomy, lysis of adhesions, reduction of his gastric contents, and suture gastropexy. Transferred to [facility] due to ongoing symptoms with imaging [...] MD 08/11/2021 6:53 General Surgery PGY-3 Pager [phone] * Lia Willis - 08/10/2021 1437 EDT SOCIAL WORK PROGRESS NOTE: Per MD team pt may be medically ready to dc home with tomorrow Friday 08/11 on full liquid diet. Pt has no CM needs that would prevent dc. SW CM will continue to follow and will continue to assist with a safe d/c when medically cleared. Natalie Willis LMSW Hematology Oncology Consultant II Pager: [phone] * Shannan Patel RD - 08/10/2021 1402 [...] results found for: ZINCMZN, COPPER, THIAMINE, FOLATE, [id number], METMMETHY, VITEALPH, RETINOL, VITD Lab Results Component Value Date/Time ALT 17 08/10/2021 05:56 AST 20 08/10/2021 05:56 ALKPHOS 75 08/10/2021 05:56 TBIL <0.5 08/10/2021 05:56 TRIG 196 08/07/2021 05:12 Estimated Nutrition Needs: [id number] lakshmi (BEE x 1.2-1.3) 87 gm pro [...] Patel RD, CD (Call PAS or use Biletu to page RD covering this unit) * Tomy Dewitt MD - 08/10/2021 0718 EDT Surgery Progress Note Admit Date: 07/31/2021 Hospital Day: LOS: 9 days Date of Service: 08/10/2021 Chief Complaint/Procedure: PEH; Transferred from [facility] 24 Hr Events: - No acute events overnight. TPN discontinued. Subjective: Amory great in the last 24 hours. Completely [...] reversal) who presents as a transfer from [facility] after presenting with acute onset abdominal pain secondary to an incarcerated paraesophageal hernia. He was taken to the OR on 07/24 for anexploratory laparotomy, lysis of adhesions, reduction of his gastric contents, and suture gastropexy. Transferred to [facility] due to ongoing symptoms with imaging [...] MD 08/10/2021 7:18 General Surgery PGY-3 Pager [phone] * Ashlie Greene MD - 08/09/2021 3614 EDT Surgery Progress Note Admit Date: 07/31/2021 Hospital Day: LOS: 8 days Date of Service: 08/09/2021 Chief Complaint/Procedure: PEH; Transferred from [facility] 24 Hr Events: - NAEON Subjective: [...] reversal) who presents as a transfer from [facility] after presenting with acute onset abdominal pain secondary to an incarcerated paraesophageal hernia. He was taken to the OR on 07/24 for anexploratory laparotomy, lysis of adhesions, reduction of his gastric contents, and suture gastropexy. Transferred to [facility] due to ongoing symptoms with imaging [...] MD 08/09/2021 7:50 General Surgery PGY-5 Pager [phone] * Lia Willis - 08/08/2021 1022 EDT SOCIAL WORK PROGRESS NOTE: Pt does not meet Medicare guidelines criteria for home TPN. MD team aware. Please refer back to 08/05 from [facility] Infusion pharmacy. Natalie Willis [facility] Hematology Oncology Consultant II Pager: [phone] * Ford Villa MD - 08/08/2021 0916 EDT Surgery Progress Note Admit Date: 07/31/2021 Hospital Day: LOS: 7 days Date of Service: 08/08/2021 Chief Complaint/Procedure: PEH; Transferred from [facility] 24 Hr Events: - NAEON Subjective: [...] Wt 69.7 kg (153 lb 9.6 oz) [id number]% BMI 24.79 kg/m?? Intake/Output: I&O By Type [...] reversal) who presents as a transfer from [facility] after presenting with acute onset [...] or drinking He is walking frequently Per CARPENTRY TEACHER, pt. To return for surgery in 6-8 [...] results found for: ZINCMZN, COPPER, THIAMINE, FOLATE, [id number], METMMETHY, VITEALPH, RETINOL, VITD Lab Results Component Value Date/Time ALT 14 08/07/2021 05:12 AST 19 08/07/2021 05:12 ALKPHOS 60 08/07/2021 05:12 TBIL <0.5 08/07/2021 05:12 TRIG 196 08/07/2021 05:12 Estimated Nutrition Needs: 5213-2387 lakshmi (BEE x 1.2-1.3) 87 gm pro [...] Patel RD, CD (Call PAS or use Biletu to page RD covering this unit) * Ollie Lee MD - 08/07/2021 0747 EDT Surgery Progress Note Admit Date: 07/31/2021 Hospital Day: LOS: 6 days Date of Service: 08/07/2021 Chief Complaint/Procedure: PEH; Transferred from [facility] 24 Hr Events: - Tolerating small [...] reversal) who presents as a transfer from [facility] after presenting with acute onset [...] Service: 08/06/2021 Chief Complaint/Procedure: PEH; Transferred from [facility] 24 Hr Events: - Reflux with [...] reversal) who presents as a transfer from [facility] after presenting with acute onset [...] the patient and discussed with the resident/medical student/CARPENTRY TEACHER team. I agree with the findings and plan of care documented in the resident's/medical student's/CARPENTRY TEACHER's note. Holli Yancey Division of General Surgery [...] Service: 08/05/2021 Chief Complaint/Procedure: PEH; Transferred from [facility] 24 Hr Events: - Tolerating 2oz/hr [...] reversal) who presents as a transfer from [facility] after presenting with acute onset [...] MD 08/05/2021 9:18 General Surgery PGY-5 Pager [phone] Associated attestation - Holli Yancey MD - 08/05/2021 1628 EST I saw and examined the patient and discussed with the resident/medical student/CARPENTRY TEACHER team. I agree with the findings and plan of care documented in the resident's/medical student's/CARPENTRY TEACHER's note. Holli Yancey Division of General Surgery Colon and Rectal Surgery * Lia Willis - 08/05/2021 0805 EST Per infusion pharmacy please read below: Coverage and Benefits Estimate for Home Infusion services: Name: Mathew Mendez : 1955 Home Infusion Therapy: Parenteral Nutrition Benefits estimate completed on: 08/04/2021 [facility] PPO plan is active on a calendar year basis as of 05/27/2021. This [facility] plan follows all Medicare guidelines. Plan covers [...] Insurance coverage have to be reported to [facility] so timely authorizations for services can be obtained. If insurance coverage is terminated during therapy, patient should contact [facility] Home [facility] services at as well as Patient Assistance Program at . * Lia Willis - 08/04/2021 1458 EST SOCIAL WORK PROGRESS NOTE: Per MD team pt is not medically ready at this time- unable to safely advance diet and continue to be NPO and on TPN for nutrition management. Per MD team- pt may need to dc home on TPN at sc. Will await from MD team to confirm. MIGEL MCKEON will continue to follow and will continue to assist with a safe d/c when medically cleared. Natalie Willis TRUCKING MANAGER Hematology Oncology Consultant II Pager: [phone] * Ollie Lee MD - 08/04/2021 0521 EST Surgery Progress Note Admit Date: 07/31/2021 Hospital Day: LOS: 3 days Date of Service: 08/04/2021 Chief Complaint/Procedure: PEH; Transferred from [facility] 24 Hr Events: - Vomited x [...] Wt 69.7 kg (153 lb 9.6 oz) [id number]% BMI 24.79 kg/m?? Intake/Output: I&O By Type [...] reversal) who presents as a transfer from [facility] after presenting with acute onset [...] Pepe MD 08/04/2021 8:15 General Surgery, PGY-2R #[phone] blue surgery pager Attestation statement: I saw [...] - 08/03/2021 1455 EST Spiritual Care Department Barrel Assembler Helper Note Re: Mathew Mendez : 1955 Room: [place] [address] Service: General Surgery Confucianist: Jewish Mathew has received a visit from the Spiritual Care Department on 08/03/2021. Assessment/Comments: Mathew spoke about his hospitalization and need for a second surgery in 3 months. He is doing well and needs to restart eating before he can go home. Barrel Assembler Helper provided a comforting presence, offered prayer and sacraments. DEMOGRAPHICS Spiritual Care Welcomed Patient Is Sikhism Importance Moderately Important Current Support System Spouse/Significant [...] to Process Issue CARE PLAN Plan Continued Barrel Assembler Helper Support Consult With Additional Support Was Clergy Needed? Yes, provided, Hvac Service Technician TIME STAMP: Total time spent 15 minutes [...] results found for: ZINCMZN, COPPER, THIAMINE, FOLATE, [id number], METMMETHY, VITEALPH, RETINOL, VITD Lab Results Component [...] Service: 08/03/2021 Chief Complaint/Procedure: PEH; Transferred from [facility] 24 Hr Events: - Was advanced [...] reversal) who presents as a transfer from [facility] after presenting with acute onset [...] c/y/u. Reports small BM, + flatus. COOPER CORPORATE RECYCLING MANAGER w/ eliana, c/d/i. at bedside being very supportive. Will continue to monitor and assess. * Tomy Dewitt MD - 08/02/2021 0908 EST Surgery Progress Note Admit Date: 07/31/2021 Hospital Day: LOS: 1 day Date of Service: 08/02/2021 Chief Complaint/Procedure: PEH; Transferred from [facility] 24 Hr Events: NG removed, started [...] reversal) who presents as a transfer from [facility] after presenting with acute onset [...] Type of housing (single family, condo, apartment, jail, single room occupancy, [facility] funded hotel room, group half-way) - Single family home Who does the patient live with? Lives with Yen Does the patient have access to their own bedroom/bathroom/kitchen - or is it shared with others? Shared with Name of housing complex (ex [employer], [facility], etc)- N/A Housing Authority/Managing Organization - N/A Community Care Providers (test case developer, [facility] nurse, etc) name and contact information- N/A [...] Yes, new copy in paper chart @ [facility] DIRECTIVES FOR FINANCES: TRANSPORTATION: Transportation: Family, Self Transportation Additional Details: Yen can provide ride home at sc Patient expects to be discharged to: home with CULTURAL, TENRIISM and/or LANGUAGE factors affecting health care/discharge planning: Spiritual/Cultural Requests: None Insurance Information: Medical Insurance: Yes Type of insurance: Medicare Medicare type: C ([employer] Medicare Advantage Plan) Referred [...] Home Health Services: None DME Provider: Pharmacy: [id number] - [address] [address] Home Health: Other: [facility]ITION PL[facility]: [...] available if dc needs arise. Natalie Willis TRUCKING MANAGER Hematology Oncology Consultant II Pager: [phone] LIA WILLIS 08/01/2021 9:12 * Ashlie Greene MD - 08/01/2021 0820 EST Surgery Progress Note Admit Date: 07/31/2021 Hospital Day: LOS: 1 day Date of Service: 08/01/2021 Chief Complaint/Procedure: PEH s/p 24 Hr Events: Transferred from [facility] Admitted and NGT continued to [facility] Subjective: Patient feeling alright. Not having [...] reversal) who presents as a transfer from [facility] after presenting with acute onset abdominal pain secondary to an incarcerated paraesophageal hernia. He was taken to the OR on 07/24 for anexploratory laparotomy, lysis of adhesions, reduction of his gastric contents, and suture gastropexy. Patient with ongoing signs Of partial obstruction. Will repeat UGI today. Plan: - NPO with NGT to [facility] - Repeat UGI today - Nutrition consult for TPN - Continue PICC - BID PPI - Heparin dvt ppx Ashlie Greene MD 08/01/2021 8:20 * Tiffanie Kerr RN - 07/31/20212031 EST Called to clear patients PICC line Data: Assessed patient's PICC line that was placed at [facility] in [facility]. Triple Lumen PICC to the Right Side. Action: Assessed PICC, all 3 lines flush well with brisk blood return. Non reflux valves changed. Dressing intact, on schedule to be changed this coming Wednesday 08/02 which is 7 days post placement date. Response: VAT will monitor PICC as needed per [facility] Policy. TIFFANIE KERR RN 07/31/2021 20:33 documented [...] reversal) who presents as a transfer from [facility] after presenting with acute onset [...] and was knee buckling. He presented to [facility] on 07/23, and CT scan revealed a [...] was made to transfer the patient to [facility] for further management. On arrival to floor, [...] reversal) who presents as a transfer from [facility] after presenting with acute onset [...] outlet obstruction and he was subsequently transferredto [facility] for further care after repeat barium studies [...] Arreola MD PGY-1 - General Surgery Pager #[phone] Attestation statement: I saw and examined the [...] reversal) who presents as a transfer from [facility] after presenting with acute onset abdominal pain secondary to an incarcerated paraesophageal hernia Clinical Course Since Last RD Visit: Subjective: Pt states he has been eating well at home and denies recent wt loss. He takes B12 supplement at home Current Nutrition Orders: NPO Nutrition Focused Physical Findings: Edema: 0 Digestive Systems: Last BM STITCH BONDING MACHINE DRAWER IN Skin: no issues NGT to suction Anthropometrics: [...] WNL Midaxillary Line: unable to assess Muscle: Anabaptism region: WNL Clavicle Region: WNL Shoulder and [...] given at discharge? Yes Natalie Willis LMSW Hematology Oncology Consultant II Pager: [phone] * Plan of Care - John Rocha [...] increase abd pain/flank +back,pt abd inc eliana CORPORATE RECYCLING MANAGER cdi Action: pt medicated with Dilaudid 0.5mg [...] Midline with eliana with some bruising around, CORPORATE RECYCLING MANAGER. Denies nausea, +flatus. Pt rates pain 5-6/10. [...] 14:46 EST FL UGI WO AIR W CORE RESCUER Routine 08/01/2021 10:35 EST XR ABDOMEN 1 VIEW Routine 08/01/2021 8:3 4 EST COMPLETE BLOOD COUNT AND DIFFERENTIAL Routine 08/01/2021 5:26 EST PHOSPHORUS Routine 08/01/2021 5:25 EST MAGNESIUM Routine 08/01/2021 5:25 EST COMPREHENSIVE METABOLIC PANEL (CMP) Routine 08/01/2021 5:25 EST ZZCOVID-19 TEST [facility] PCR Today 07/31/2021 21:37 EST COVID-19 [...] 70 - 100 mg/dL 08/11/2021 6:00 EDT [facility] HN LAB POC COMMENT (GLUCOSE) Test Performed by Nursing Services 08/11/2021 6:00 EDT [facility] Blood CAPILLARY BLOOD / Unknown 08/11/2021 5:59 EDT 08/11/2021 6:00 EDT Sanjuana Gaona NP POINT OF CARE TEST O RDERABLES [facility] [address] [place] [address] * (ABNORMAL) COMPLETE BLOOD COUNT AND DIFFERENTIAL (08/11/2021 5:55 EDT) WBC 5.86 4.00 - 10.40 K/cmm 08/11/2021 6:12 EDT [facility] RBC 3.04(L) 4.36 - 5.78 M/cmm 08/11/2021 6:12 [facility] Hemoglobin 9.3(L) 13.8 - 17.3 gm/dL 08/11/2021 6:12 [facility] HCT 27.6(L) 39.5 - 50.2 % 08/11/2021 6:12 [facility] MCV 91 81 - 95 fl 08/11/2021 6:12 [facility] MCH 30.6 27.6 - 33.0 pg 08/11/2021 6:12 [facility] MCHC 33.7 32.8 - 36.4 gm/dL 08/11/2021 6:12 [facility] RDW-CV 13.1 <14.2 % 08/11/2021 6:12 [facility] RDW-SD 43.2 <46.0 fl 08/11/2021 6:12 [facility] PLT 188 141 - 377 K/cmm 08/11/2021 6:12 [facility] MPV 11.8 9.5 - 12.7 fl 08/11/2021 6:12 [facility] % Neutrophils 53.2 % 08/11/2021 6:12 [facility] % Lymphocytes 19.8 % 08/11/2021 6:12 [facility] % Monocytes 10.1 % 08/11/2021 6:12 [facility] % Eosinophils 15.2 % 08/11/2021 6:12 [facility] % Basophils 1.2 % 08/11/2021 6:12 [facility] % Immature Grans 0.5 % 08/12/19 6:12 [facility] Absolute Neutrophils 3.12 2.20 - 8.85 K/cmm 08/11/2021 6:12 [facility] Absolute Lymphocytes 1.16 1.09 - 3.30 K/cmm 08/11/2021 6:12 [facility] Absolute Monocytes 0.59 0.10 - 0.80 K/cmm 08/11/2021 6:12 EDT [facility] Absolute Eosinophils 0.89(H) 0.03 - 0.61 K/cmm 08/11/2021 6:12 EDT [facility] ABS Basophils 0.07 0.01 - 0.11 K/cmm 08/11/2021 6:12 EDT [facility] Absolute Immature Grans 0.03 0.00 - 0.06 K/cmm 08/11/2021 6:12 EDT [facility] Type of Differential: Auto 08/11/2021 6:12 EDT [facility] Blood VENOUS BLOOD / Unknown Venipuncture / Unknown 08/11/2021 5:55 EDT 08/11/2021 6:02 EDT Yomi Arreola MD PACKAGES & DNA PROBE ORDERABLES Performing Organization Address City/[facility] Co de Phone Number [facility] [address] [place] [address] * (ABNORMAL) PHOSPHORUS (08/11/2021 5:54 EDT) Phosphorus 4.6(H) 2.5 - 4.5 mg/dL 08/11/2021 6:33 EDT [facility] Blood VENOUS BLOOD / Unknown Venipuncture / Unknown 08/11/2021 5:54 EDT 08/11/2021 6:01 EDT Yomi Arreola MD CHEMISTRY & BLOOD GA S ORDERABLES Performing Organization Address City/[facility] Co de Phone Number [facility] [address] [place] [address] * MAGNESIUM (08/11/2021 5:54 EDT) Magnesium 1.8 1.7 - 2.8 mg/dL 08/11/2021 6:33 EDT [facility] Blood VENOUS BLOOD / Unknown Venipuncture / Unknown 08/11/2021 5:54 EDT 08/11/2021 6:01 EDT Yomi Arreola MD CHEMISTRY & BLOOD GA S ORDERABLES [facility] [address] [place] [address] * (ABNORMAL) COMPREHENSIVE METABOLIC PANEL (CMP) (08/11/2021 5:54 EDT) Sodium 136 136 - 145 mmol/L 08/11/2021 6:33 [facility] Potassium 4.6 3.5 - 5.0 mmol/L 08/11/2021 6:33 [facility] Chloride 101 96 - 110 mmol/L 08/11/2021 6:33 [facility] CO2 Total 24 22 - 32 mmol/L 08/11/2021 6:33 [facility] Glucose 89 70 - 100 mg/dL 08/11/2021 6:33 [facility] BUN 55(H) 10 - 26 mg/dL 08/11/2021 6:33 [facility] Creatinine 2.30(H) 0.66 - 1.25 mg/dL 08/11/2021 6:33 [facility] eGFR 28(L) >60 mL/min/1.7 3m2 08/11/2021 6:33 [facility] Total Protein 6.2(L) 6.3 - 8.2 g/dL 08/11/2021 6:33 [facility] Albumin 3.8 3.4 - 4.9 g/dL 08/11/2021 6:33 [facility] Alkaline Phosphatase 68 38 - 126 U/L 08/11/2021 6:33 [facility] AST 19 15 - 46 U/L 08/11/2021 6:33 [facility] ALT 16 <50 U/L 08/11/2021 6:33 [facility] Bilirubin, Total <0.5 <1.4 mg/dL 08/12/19 6:33 [facility] Calcium 9.2 8.5 - 10.5 mg/dL 08/11/2021 6:33 EDT [facility] Albumin/Globulin Ratio 1.6 1.0 - 2.5 08/11/2021 6:33 EDT [facility] Anion Gap 11 5 - 14 08/11/2021 6:33 EDT [facility] Blood VENOUS BLOOD / Unknown Venipuncture / Unknown 08/11/2021 5:54 EDT 08/11/2021 6:01 EDT Yomi Arreola MD CHEMISTRY & BLOOD GA S ORDERABLES Performing Organization Address City/[facility]/ZIP Co de Phone Number [facility] [address] [place] [address] * POCT GLUCOSE, INTERFACED (08/10/2021 5:59 EDT) Glucose, POC 99 70 - 100 mg/dL 08/10/2021 6:00 EDT [facility] HN LAB POC COMMENT (GLUCOSE) Test Performed by Nursing Services 08/10/2021 6:00 EDT [facility] Blood CAPILLARY BLOOD / Unknown 08/10/2021 5:59 EDT 08/10/2021 6:00 EDT Sanjuana Gaona CARPENTRY TEACHER POINT OF CARE TEST O RDERABLES Performing Organization Address City/[facility]/ZIP Co de Phone Number [facility] [address] [place] [id number] * (ABNORMAL) PHOSPHORUS (08/10/2021 5:56 EDT) Phosphorus 4.7(H) 2.5 - 4.5 mg/dL 08/10/2021 6:39 EDT [facility] Blood VENOUS BLOOD / Unknown Venipuncture / Unknown 08/10/2021 5:56 EDT 08/10/2021 6:08 EDT Yomi Arreola MD CHEMISTRY & BLOOD GA S ORDERABLES [facility] [address] [place] [address] * MAGNESIUM (08/10/2021 5:56 EDT) Pathologist [facility] Magnesium 1.9 1.7 - 2.8 mg/dL 08/10/2021 6:39 EDT [facility] Blood VENOUS BLOOD / Unknown Venipuncture / Unknown 08/10/2021 5:56 EDT 08/10/2021 6:08 EDT Yomi Arreola MD CHEMISTRY & BLOOD GA S ORDERABLES [facility] [address] [place] [address] * (ABNORMAL) COMPLETE BLOOD COUNT AND DIFFERENTIAL (08/10/2021 5:56 EDT) Pathologist [facility] WBC 6.38 4.00 - 10.40 K/cmm 08/10/2021 6:12 [facility] RBC 3.14(L) 4.36 - 5.78 M/cmm 08/10/2021 6:12 [facility] Hemoglobin 9.7(L) 13.8 - 17.3 gm/dL 08/10/2021 6:12 [facility] HCT 28.3(L) 39.5 - 50.2 % 08/10/2021 6:12 [facility] MCV 90 81 - 95 fl 08/10/2021 6:12 [facility] MCH 30.9 27.6 - 33.0 pg 08/10/2021 6:12 [facility] MCHC 34.3 32.8 - 36.4 gm/dL 08/10/2021 6:12 [facility] RDW-CV 13.1 <14.2 % 08/10/2021 6:12 [facility] RDW-SD 43.0 <46.0 fl 08/10/2021 6:12 [facility] PLT 204 141 - 377 K/cmm 08/10/2021 6:12 [facility] MPV 11.5 9.5 - 12.7 fl 08/10/2021 6:12 [facility] % Neutrophils 59.4 % 08/10/2021 6:12 [facility] % Lymphocytes 16.8 % 08/10/2021 6:12 [facility] % Monocytes 7.8 % 08/10/2021 6:12 [facility] % Eosinophils 14.1 % 08/10/2021 6:12 [facility] % Basophils 1.4 % 08/10/2021 6:12 [facility] % Immature Grans 0.5 % 08/11/19 6:12 [facility] Absolute Neutrophils 3.79 2.20 - 8.85 K/cmm 08/10/2021 6:12 [facility] Absolute Lymphocytes 1.07(L) 1.09 - 3.30 K/cmm 08/10/2021 6:12 [facility] Absolute Monocytes 0.50 0.10 - 0.80 K/cmm 08/10/2021 6:12 [facility] Absolute Eosinophils 0.90(H) 0.03 - 0.61 K/cmm 08/10/2021 6:12 [facility] ABS Basophils 0.09 0.01 - 0.11 K/cmm 08/10/2021 6:12 [facility] Absolute Immature Grans 0.03 0.00 - 0.06 K/cmm 08/10/2021 6:12 [facility] Type of Differential: Auto 08/10/2021 6:12 [facility] Blood VENOUS BLOOD / Unknown Venipuncture / Unknown 08/10/2021 5:56 EDT 08/10/2021 6:05 EDT Yomi Arreola MD PACKAGES & DNA PROBE ORDERABLES [facility] [address] [place] [address] * (ABNORMAL) COMPREHENSIVE METABOLIC PANEL (CMP) (08/10/2021 5:56 EDT) Sodium 139 136 - 145 mmol/L 08/10/2021 6:39 [facility] Potassium 4.7 3.5 - 5.0 mmol/L 08/10/2021 6:39 [facility] Chloride 101 96 - 110 mmol/L 08/10/2021 6:39 [facility] CO2 Total 23 22 - 32 mmol/L 08/10/2021 6:39 [facility] Glucose 97 70 - 100 mg/dL 08/10/2021 6:39 [facility] BUN 58(H) 10 - 26 mg/dL 08/10/2021 6:39 [facility] Creatinine 2.30(H) 0.66 - 1.25 mg/dL 08/10/2021 6:39 [facility] eGFR 28(L) >60 mL/min/1.7 3m2 08/10/2021 6:39 [facility] Total Protein 6.7 6.3 - 8.2 g/dL 08/10/2021 6:39 [facility] Albumin 4.2 3.4 - 4.9 g/dL 08/10/2021 6:39 [facility] Alkaline Phosphatase 75 38 - 126 U/L 08/10/2021 6:39 [facility] AST 20 15 - 46 U/L 08/10/2021 6:39 [facility] ALT 17 <50 U/L 08/10/2021 6:39 [facility] Bilirubin, Total <0.5 <1.4 mg/dL 08/11/19 6:39 [facility] Calcium 9.8 8.5 - 10.5 mg/dL 08/10/2021 6:39 [facility] Albumin/Globulin Ratio 1.7 1.0 - 2.5 08/10/2021 6:39 [facility] Anion Gap 15(H) 5 - 14 08/10/2021 6:39 EDT [facility] Blood VENOUS BLOOD / Unknown Venipuncture / Unknown 08/10/2021 5:56 EDT 08/10/2021 6:08 EDT Yomi Arreola MD CHEMISTRY & BLOOD GA S ORDERABLES Performing Organization Address City/[facility]/ZIP Co de Phone Number [facility] [address] [place] [address] * (ABNORMAL) POCT GLUCOSE, INTERFACED (08/09/2021 5:15 EDT) Glucose, POC 116(H) 70 - 100 mg/dL 08/09/2021 5:17 EDT [facility] HN LAB POC COMMENT (GLUCOSE) Test Performed by Nursing Services 08/09/2021 5:17 EDT [facility] Blood CAPILLARY BLOOD / Unknown 08/09/2021 5:15 EDT 08/09/2021 5:17 EDT Sanjuana Gaona [employer] POINT OF CARE TEST O RDERABLES Performing Organization Address City/[facility]/ZIP Co de Phone Number [facility] [address] [place] [address] * PHOSPHORUS (08/09/2021 5:13 EDT) Phosphorus 3.8 2.5 - 4.5 mg/dL 08/09/2021 6:01 EDT [facility] Blood VENOUS BLOOD / Unknown Venipuncture / Unknown 08/09/2021 5:13 EDT 08/09/2021 5:23 EDT Yomi Arreola MD CHEMISTRY & BLOOD GA S ORDERABLES Performing Organization Address City/[facility]/ZIP Co de Phone Number [facility] [address] [place] [address] * MAGNESIUM (08/09/2021 5:13 EDT) Magnesium 2.0 1.7 - 2.8 mg/dL 08/09/2021 6:01 [facility] Blood VENOUS BLOOD / Unknown Venipuncture / Unknown 08/09/2021 5:13 EDT 08/09/2021 5:23 EDT Yomi Arreola MD CHEMISTRY & BLOOD GA S ORDERABLES [facility] [address] [place] [address] * (ABNORMAL) COMPLETE BLOOD COUNT AND DIFFERENTIAL (08/09/2021 5:13 EDT) WBC 7.59 4.00 - 10.40 K/cmm 08/09/2021 5:27 [facility] RBC 2.90(L) 4.36 - 5.78 M/cmm 08/09/2021 5:27 [facility] Hemoglobin 8.9(L) 13.8 - 17.3 gm/dL 08/09/2021 5:27 [facility] HCT 26.3(L) 39.5 - 50.2 % 08/09/2021 5:27 [facility] MCV 91 81 - 95 fl 08/09/2021 5:27 [facility] MCH 30.7 27.6 - 33.0 pg 08/09/2021 5:27 [facility] MCHC 33.8 32.8 - 36.4 gm/dL 08/09/2021 5:27 [facility] RDW-CV 13.0 <14.2 % 08/09/2021 5:27 [facility] RDW-SD 43.0 <46.0 fl 08/09/2021 5:27 [facility] PLT 209 141 - 377 K/cmm 08/09/2021 5:27 [facility] MPV 11.7 9.5 - 12.7 fl 08/09/2021 5:27 [facility] % Neutrophils 69.0 % 08/09/2021 5:27 [facility] % Lymphocytes 11.7 % 08/09/2021 5:27 [facility] % Monocytes 7.4 % 08/09/2021 5:27 [facility] % Eosinophils 10.4 % 08/09/2021 5:27 [facility] % Basophils 1.2 % 08/09/2021 5:27 [facility] % Immature Grans 0.3 % 08/10/19 5:27 [facility] Absolute Neutrophils 5.24 2.20 - 8.85 K/cmm 08/09/2021 5:27 [facility] Absolute Lymphocytes 0.89(L) 1.09 - 3.30 K/cmm 08/09/2021 5:27 [facility] Absolute Monocytes 0.56 0.10 - 0.80 K/cmm 08/09/2021 5:27 [facility] Absolute Eosinophils 0.79(H) 0.03 - 0.61 K/cmm 08/09/2021 5:27 [facility] ABS Basophils 0.09 0.01 - 0.11 K/cmm 08/09/2021 5:27 [facility] Absolute Immature Grans 0.02 0.00 - 0.06 K/cmm 08/09/2021 5:27 [facility] Type of Differential: Auto 08/09/2021 5:27 [facility] Blood VENOUS BLOOD / Unknown Venipuncture / Unknown 08/09/2021 5:13 EDT 08/09/2021 5:18 EDT Yomi Arreola MD PACKAGES & DNA PROBE ORDERABLES [facility] [address] [place] [address] * (ABNORMAL) COMPREHENSIVE METABOLIC PANEL (CMP) (08/09/2021 5:13 EDT) Sodium 138 136 - 145 mmol/L 08/09/2021 6:01 [facility] Potassium 4.4 3.5 - 5.0 mmol/L 08/09/2021 6:01 [facility] Chloride 104 96 - 110 mmol/L 08/09/2021 6:01 [facility] CO2 Total 22 22 - 32 mmol/L 08/09/2021 6:01 [facility] Glucose 109(H) 70 - 100 mg/dL 08/09/2021 6:01 [facility] BUN 59(H) 10 - 26 mg/dL 08/09/2021 6:01 [facility] Creatinine 2.05(H) 0.66 - 1.25 mg/dL 08/09/2021 6:01 [facility] eGFR 33(L) >60 mL/min/1.7 3m2 08/09/2021 6:01 [facility] Total Protein 6.2(L) 6.3 - 8.2 g/dL 08/09/2021 6:01 [facility] Albumin 3.7 3.4 - 4.9 g/dL 08/09/2021 6:01 [facility] Alkaline Phosphatase 67 38 - 126 U/L 08/09/2021 6:01 [facility] AST 18 15 - 46 U/L 08/09/2021 6:01 [facility] ALT 16 <50 U/L 08/09/2021 6:01 [facility] Bilirubin, Total <0.5 <1.4 mg/dL 08/10/19 22 6:01 [facility] Calcium 9.7 8.5 - 10.5 mg/dL 08/09/2021 6:01 [facility] Albumin/Globulin Ratio 1.5 1.0 - 2.5 08/09/2021 6:01 [facility] Anion Gap 12 5 - 14 08/09/2021 6:01 [facility] Blood VENOUS BLOOD / Unknown Venipuncture / Unknown 08/09/2021 5:13 EDT 08/09/2021 5:23 EDT Yomi Arreola MD CHEMISTRY & BLOOD GA S ORDERABLES [facility] [address] [place] [address] * PHOSPHORUS (08/08/2021 6:04 EDT) Phosphorus 4.4 2.5 - 4.5 mg/dL 08/08/2021 7:02 EDT [facility] Blood VENOUS BLOOD / Unknown Venipuncture / Unknown 08/08/2021 6:04 EDT 08/08/2021 6:17 EDT Yomi Arreola MD CHEMISTRY & BLOOD GA S ORDERABLES Performing Organization Address [facility]/ZIP Co de Phone Number [facility] [address] [place] [address] * MAGNESIUM (08/08/2021 6:04 EDT) Magnesium 2.0 1.7 - 2.8 mg/dL 08/08/2021 7:02 EDT [facility] Blood VENOUS BLOOD / Unknown Venipuncture / Unknown 08/08/2021 6:04 EDT 08/08/2021 6:17 EDT Yomi Arreola MD CHEMISTRY & BLOOD GA S ORDERABLES Performing Organization Address City/[facility] Co de Phone Number [facility] [address] [place] [address] * (ABNORMAL) COMPLETE BLOOD COUNT AND DIFFERENTIAL (08/08/2021 6:04 EDT) WBC 6.05 4.00 - 10.40 K/cmm 08/08/2021 6:22 EDT [facility] RBC 2.92(L) 4.36 - 5.78 M/cmm 08/08/2021 6:22 EDT [facility] Hemoglobin 8.7(L) 13.8 - 17.3 gm/dL 08/08/2021 6:22 EDT [facility] HCT 27.1(L) 39.5 - 50.2 % 08/08/2021 6:22 [facility] MCV 93 81 - 95 fl 08/08/2021 6:22 [facility] MCH 29.8 27.6 - 33.0 pg 08/08/2021 6:22 [facility] MCHC 32.1(L) 32.8 - 36.4 gm/dL 08/08/2021 6:22 [facility] RDW-CV 12.9 <14.2 % 08/08/2021 6:22 [facility] RDW-SD 43.9 <46.0 fl 08/08/2021 6:22 [facility] PLT 206 141 - 377 K/cmm 08/08/2021 6:22 [facility] MPV 11.6 9.5 - 12.7 fl 08/08/2021 6:22 [facility] % Neutrophils 57.2 % 08/08/2021 6:22 [facility] % Lymphocytes 17.7 % 08/08/2021 6:22 [facility] % Monocytes 9.3 % 08/08/2021 6:22 [facility] % Eosinophils 14.0 % 08/08/2021 6:22 [facility] % Basophils 1.3 % 08/08/2021 6:22 [facility] % Immature Grans 0.5 % 08/09/19 6:22 [facility] Absolute Neutrophils 3.46 2.20 - 8.85 K/cmm 08/08/2021 6:22 [facility] Absolute Lymphocytes 1.07(L) 1.09 - 3.30 K/cmm 08/08/2021 6:22 [facility] Absolute Monocytes 0.56 0.10 - 0.80 K/cmm 08/08/2021 6:22 [facility] Absolute Eosinophils 0.85(H) 0.03 - 0.61 K/cmm 08/08/2021 6:22 [facility] ABS Basophils 0.08 0.01 - 0.11 K/cmm 08/08/2021 6:22 [facility] Absolute Immature Grans 0.03 0.00 - 0.06 K/cmm 08/08/2021 6:22 [facility] Type of Differential: Auto 08/08/2021 6:22 [facility] Blood VENOUS BLOOD / Unknown Venipuncture / Unknown 08/08/2021 6:04 EDT 08/08/2021 6:15 EDT Yomi Arreola MD PACKAGES & DNA PROBE ORDERABLES [facility] [address] [place] [address] * (ABNORMAL) COMPREHENSIVE METABOLIC PANEL (CMP) (08/08/2021 6:04 EDT) Sodium 138 136 - 145 mmol/L 08/08/2021 7:02 [facility] Potassium 4.7 3.5 - 5.0 mmol/L 08/08/2021 7:02 [facility] Chloride 106 96 - 110 mmol/L 08/08/2021 7:02 [facility] CO2 Total 19(L) 22 - 32 mmol/L 08/08/2021 7:02 [facility] Glucose 114(H) 70 - 100 mg/dL 08/08/2021 7:02 [facility] BUN 56(H) 10 - 26 mg/dL 08/08/2021 7:02 [facility] Creatinine 2.17(H) 0.66 - 1.25 mg/dL 08/08/2021 7:02 [facility] eGFR 30(L) >60 mL/min/1.7 3m2 08/08/2021 7:02 [facility] Total Protein 6.2(L) 6.3 - 8.2 g/dL 08/08/2021 7:02 [facility] Albumin 3.7 3.4 - 4.9 g/dL 08/08/2021 7:02 [facility] Alkaline Phosphatase 66 38 - 126 U/L 08/08/2021 7:02 [facility] AST 20 15 - 46 U/L 08/08/2021 7:02 [facility] ALT 16 <50 U/L 08/08/2021 7:02 [facility] Bilirubin, Total <0.5 <1.4 mg/dL 08/09/19 7:02 [facility] Calcium 9.5 8.5 - 10.5 mg/dL 08/08/2021 7:02 [facility] Albumin/Globulin Ratio 1.5 1.0 - 2.5 08/08/2021 7:02 [facility] Anion Gap 13 5 - 14 08/08/2021 7:02 [facility] Blood VENOUS BLOOD / Unknown Venipuncture / Unknown 08/08/2021 6:04 EDT 08/08/2021 6:17 EDT Yomi Arreola MD CHEMISTRY & BLOOD GA S ORDERABLES [facility] [address] [place] [address] * FL OUTSIDE IMAGES (08/07/2021 13:27 EDT) Narrative 08/07/2021 13:27 EDT This is a non-reportable exam. External Imaging IMG OTHER IMAGING OR DERABLES * TRIGLYCERIDE (08/07/2021 5:12 EDT) Triglyceride 196 See Note mg/dL 08/07/2021 5:45 EDT [facility] Comment: Normal: ? <150 mg/dL Borderline High: ??150 - 199 mg/dL High: ? 200 - 499 mg/dL Very High: ?> or = 500 mg/dL Blood VENOUS BLOOD / Unknown Venipuncture / Unknown 08/07/2021 5:12 EDT 08/07/2021 5:16 EDT Sanjuana Gaona NP CHEMISTRY & BLOOD GA S ORDERABLES Performing Organization Address City/[facility]/ZIP Co de Phone Number [facility] [address] [place] [address] * BILIRUBIN DIRECT/INDIRECT (08/07/2021 5:12 EDT) Conjugated Bilirubin 0.0 <=0.3 mg/dL 08/07/2021 5:45 EDT [facility] Unconjugated Bilirubin 0.0 <=1.1 mg/dL 08/07/2021 5:45 EDT [facility] Blood VENOUS BLOOD / Unknown Venipuncture / Unknown 08/07/2021 5:12 EDT 08/07/2021 5:16 EDT Sanjuana Gaona NP CHEMISTRY & BLOOD GA S ORDERABLES Performing Organization Address City/[facility]/ZIP Co de Phone Number [facility] [address] [place] [address] * PHOSPHORUS (08/07/2021 5:12 EDT) Phosphorus 4.1 2.5 - 4.5 mg/dL 08/07/2021 5:45 EDT [facility] Blood VENOUS BLOOD / Unknown Venipuncture / Unknown 08/07/2021 5:12 EDT 08/07/2021 5:16 EDT Yomi Arreola MD CHEMISTRY & BLOOD GA S ORDERABLES [facility] [address] [place] [address] * MAGNESIUM (08/07/2021 5:12 EDT) Magnesium 2.1 1.7 - 2.8 mg/dL 08/07/2021 5:45 EDT [facility] Blood VENOUS BLOOD / Unknown Venipuncture / Unknown 08/07/2021 5:12 EDT 08/07/2021 5:16 EDT Yomi Arreola MD CHEMISTRY & BLOOD GA S ORDERABLES [facility] [address] [place] [address] * (ABNORMAL) COMPLETE BLOOD COUNT AND DIFFERENTIAL (08/07/2021 5:12 EDT) WBC 5.83 4.00 - 10.40 K/cmm 08/07/2021 5:23 EDT [facility] RBC 2.73(L) 4.36 - 5.78 M/cmm 08/07/2021 5:23 [facility] Hemoglobin 8.4(L) 13.8 - 17.3 gm/dL 08/07/2021 5:23 [facility] HCT 25.5(L) 39.5 - 50.2 % 08/07/2021 5:23 [facility] MCV 93 81 - 95 fl 08/07/2021 5:23 [facility] MCH 30.8 27.6 - 33.0 pg 08/07/2021 5:23 [facility] MCHC 32.9 32.8 - 36.4 gm/dL 08/07/2021 5:23 [facility] RDW-CV 12.9 <14.2 % 08/07/2021 5:23 [facility] RDW-SD 43.6 <46.0 fl 08/07/2021 5:23 [facility] PLT 204 141 - 377 K/cmm 08/07/2021 5:23 [facility] MPV 11.5 9.5 - 12.7 fl 08/07/2021 5:23 [facility] % Neutrophils 54.6 % 08/07/2021 5:23 [facility] % Lymphocytes 17.3 % 08/07/2021 5:23 [facility] % Monocytes 10.1 % 08/07/2021 5:23 [facility] % Eosinophils 16.0 % 08/07/2021 5:23 [facility] % Basophils 1.5 % 08/07/2021 5:23 [facility] % Immature Grans 0.5 % 08/08/19 5:23 [facility] Absolute Neutrophils 3.18 2.20 - 8.85 K/cmm 08/07/2021 5:23 [facility] Absolute Lymphocytes 1.01(L) 1.09 - 3.30 K/cmm 08/07/2021 5:23 [facility] Absolute Monocytes 0.59 0.10 - 0.80 K/cmm 08/07/2021 5:23 [facility] Absolute Eosinophils 0.93(H) 0.03 - 0.61 K/cmm 08/07/2021 5:23 [facility] ABS Basophils 0.09 0.01 - 0.11 K/cmm 08/07/2021 5:23 [facility] Absolute Immature Grans 0.03 0.00 - 0.06 K/cmm 08/07/2021 5:23 [facility] Type of Differential: Auto 08/07/2021 5:23 [facility] Blood VENOUS BLOOD / Unknown Venipuncture / Unknown 08/07/2021 5:12 EDT 08/07/2021 5:16 EDT Yomi Arreola MD PACKAGES & DNA PROBE ORDERABLES [facility] [address] [place] [address] * (ABNORMAL) COMPREHENSIVE METABOLIC PANEL (CMP) (08/07/2021 5:12 EDT) Sodium 136 136 - 145 mmol/L 08/07/2021 5:45 T [facility] Potassium 4.7 3.5 - 5.0 mmol/L 08/07/2021 5:45 [facility] Chloride 106 96 - 110 mmol/L 08/07/2021 5:45 [facility] CO2 Total 21(L) 22 - 32 mmol/L 08/07/2021 5:45 [facility] Glucose 115(H) 70 - 100 mg/dL 08/07/2021 5:45 [facility] BUN 54(H) 10 - 26 mg/dL 08/07/2021 5:45 [facility] Creatinine 2.04(H) 0.66 - 1.25 mg/dL 08/07/2021 5:45 [facility] eGFR 33(L) >60 mL/min/1.7 3m2 08/07/2021 5:45 [facility] Total Protein 5.9(L) 6.3 - 8.2 g/dL 08/07/2021 5:45 [facility] Albumin 3.5 3.4 - 4.9 g/dL 08/07/2021 5:45 [facility] Alkaline Phosphatase 60 38 - 126 U/L 08/07/2021 5:45 [facility] AST 19 15 - 46 U/L 08/07/2021 5:45 [facility] ALT 14 <50 U/L 08/07/2021 5:45 [facility] Bilirubin, Total <0.5 <1.4 mg/dL 08/08/19 5:45 [facility] Calcium 9.1 8.5 - 10.5 mg/dL 08/07/2021 5:45 [facility] Albumin/Globulin Ratio 1.5 1.0 - 2.5 08/07/2021 5:45 [facility] Anion Gap 9 5 - 14 08/07/2021 5:45 [facility] Blood VENOUS BLOOD / Unknown Venipuncture / Unknown 08/07/2021 5:12 EDT 08/07/2021 5:16 EDT Yomi Arreola MD CHEMISTRY & BLOOD GA S ORDERABLES [facility] [address] [place] [address] * (ABNORMAL) COMPREHENSIVE METABOLIC PANEL (CMP) (08/06/2021 7:44 EDT) Sodium 138 136 - 145 mmol/L 08/06/2021 8:19 [facility] Potassium 4.8 3.5 - 5.0 mmol/L 08/06/2021 8:19 [facility] Chloride 104 96 - 110 mmol/L 08/06/2021 8:19 [facility] CO2 Total 21(L) 22 - 32 mmol/L 08/06/2021 8:19 [facility] Glucose 102(H) 70 - 100 mg/dL 08/06/2021 8:19 [facility] BUN 55(H) 10 - 26 mg/dL 08/06/2021 8:19 [facility] Creatinine 2.17(H) 0.66 - 1.25 mg/dL 08/06/2021 8:19 [facility] eGFR 30(L) >60 mL/min/1.7 3m2 08/06/2021 8:19 [facility] Total Protein 6.8 6.3 - 8.2 g/dL 08/06/2021 8:19 [facility] Albumin 4.1 3.4 - 4.9 g/dL 08/06/2021 8:19 [facility] Alkaline Phosphatase 70 38 - 126 U/L 08/06/2021 8:19 [facility] AST 21 15 - 46 U/L 08/06/2021 8:19 [facility] ALT 15 <50 U/L 08/06/2021 8:19 [facility] Bilirubin, Total <0.5 <1.4 mg/dL 08/07/19 8:19 [facility] Calcium 9.6 8.5 - 10.5 mg/dL 08/06/2021 8:19 [facility] Albumin/Globulin Ratio 1.5 1.0 - 2.5 08/06/2021 8:19 EDT [facility] Anion Gap 13 5 - 14 08/06/2021 8:19 EDT [facility] Blood VENOUS BLOOD / Unknown Venipuncture / Unknown 08/06/2021 7:44 EDT 08/06/2021 7:52 EDT Yomi Arreola MD CHEMISTRY & BLOOD GA S ORDERABLES Performing Organization Address City/[facility]/ZIP Co de Phone Number [facility] [address] [place] [address] * POCT GLUCOSE, INTERFACED (08/06/2021 6:32 EDT) Glucose, POC 98 70 - 100 mg/dL 08/06/2021 7:33 EDT [facility] HN LAB POC COMMENT (GLUCOSE) Test Performed by Nursing Services 08/06/2021 7:33 EDT [facility] Blood CAPILLARY BLOOD / Unknown 08/06/2021 6:32 EDT 08/06/2021 7:33 EDT Sanjuana Gaona [employer] POINT OF CARE TEST O RDERABLES Performing Organization Address [facility] Co de Phone Number [facility] [address] [place] [address] * PHOSPHORUS (08/06/2021 6:09 EDT) Pathologist Kavitha Phosphorus 08/07/2021 9:40 EDT [facility] Comment: Question specimen contaminated. This is a corrected result. Previous result was 4.4 mg/dL on 08/06/2021 at 0704 EDT Blood VENOUS BLOOD / Unknown Venipuncture / Unknown 08/06/2021 6:09 EDT 08/06/2021 6:34 EDT Yomi Arreola MD CHEMISTRY & BLOOD GA S ORDERABLES Performing Organization Address City/[facility] Co de Phone Number [facility] [address] [place] [address] * MAGNESIUM (08/06/2021 6:09 EDT) Magnesium 08/07/2021 9:40 T [facility] Comment: Question specimen contaminated. This is a corrected result. Previous result was 2.4 mg/dL on 08/06/2021 at 0704 EDT Blood VENOUS BLOOD / Unknown Venipuncture / Unknown 08/06/2021 6:09 EDT 08/06/2021 6:34 EDT Yomi Arreola MD CHEMISTRY & BLOOD GA S ORDERABLES [facility] [address] [place] [address] * (ABNORMAL) COMPLETE BLOOD COUNT AND DIFFERENTIAL (08/06/2021 6:09 EDT) [facility] WBC 6.86 4.00 - 10.40 K/cmm 08/06/2021 6:34 [facility] RBC 2.63(L) 4.36 - 5.78 M/cmm 08/06/2021 6:34 [facility] Hemoglobin 8.4(L) 13.8 - 17.3 gm/dL 08/06/2021 6:34 [facility] HCT 25.2(L) 39.5 - 50.2 % 08/06/2021 6:34 [facility] MCV 96(H) 81 - 95 fl 08/06/2021 6:34 [facility] MCH 31.9 27.6 - 33.0 pg 08/06/2021 6:34 [facility] MCHC 33.3 32.8 - 36.4 gm/dL 08/06/2021 6:34 [facility] RDW-CV 12.9 <14.2 % 08/06/2021 6:34 [facility] RDW-SD 45.7 <46.0 fl 08/06/2021 6:34 [facility] PLT 200 141 - 377 K/cmm 08/06/2021 6:34 [facility] MPV 11.8 9.5 - 12.7 fl 08/06/2021 6:34 [facility] % Neutrophils 61.9 % 08/06/2021 6:34 [facility] % Lymphocytes 14.0 % 08/06/2021 6:34 [facility] % Monocytes 8.9 % 08/06/2021 6:34 [facility] % Eosinophils 13.7 % 08/06/2021 6:34 [facility] % Basophils 1.2 % 08/06/2021 6:34 [facility] % Immature Grans 0.3 % 08/07/19 6:34 [facility] Absolute Neutrophils 4.25 2.20 - 8.85 K/cmm 08/06/2021 6:34 [facility] Absolute Lymphocytes 0.96(L) 1.09 - 3.30 K/cmm 08/06/2021 6:34 [facility] Absolute Monocytes 0.61 0.10 - 0.80 K/cmm 08/06/2021 6:34 [facility] Absolute Eosinophils 0.94(H) 0.03 - 0.61 K/cmm 08/06/2021 6:34 [facility] ABS Basophils 0.08 0.01 - 0.11 K/cmm 08/06/2021 6:34 [facility] Absolute Immature Grans 0.02 0.00 - 0.06 K/cmm 08/06/2021 6:34 [facility] Type of Differential: Auto 08/06/2021 6:34 [facility] Blood VENOUS BLOOD / Unknown Venipuncture / Unknown 08/06/2021 6:09 EDT 08/06/2021 6:17 EDT Yomi Arreola MD PACKAGES & DNA PROBE ORDERABLES [facility] [address] [place] [address] * COMPREHENSIVE METABOLIC PANEL (CMP) (08/06/2021 6:09 EDT) Sodium 08/07/2021 9:40 T [facility] Comment: Question specimen contaminated. This is a corrected result. Previous result was 134 mmol/L on 08/06/2021 at 0718 EDT Potassium 08/07/2021 9:40 [facility] Comment: Question specimen contaminated. This is a corrected result. Previous result was 5.8 mmol/L on 08/06/2021 at 0718 EDT Chloride 08/07/2021 9:40 T [facility] Comment: Question specimen contaminated. This is a corrected result. Previous result was 102 mmol/L on 08/06/2021 at 0718 EDT CO2 Total 08/07/2021 9:40 [facility] Comment: Question specimen contaminated. This is a corrected result. Previous result was 20 mmol/L on 08/06/2021 at 0718 EDT Glucose 08/07/2021 9:40 [facility] Comment: Question specimen contaminated. This is a corrected result. Previous result was 527 mg/dL on 08/06/2021 at 0718 EDT BUN 08/07/2021 9:40 [facility] Comment: Question specimen contaminated. This is a corrected result. Previous result was 51 mg/dL on 08/06/2021 at 0718 EDT Creatinine 08/07/2021 9:40 [facility] Comment: Question specimen contaminated. This is a corrected result. Previous result was 2.05 mg/dL on 08/06/2021 at 0718 EDT eGFR 08/07/2021 9:40 [facility] Comment: Question specimen contaminated. This is a corrected result. Previous result was 33 mL/min/1.73m2 on 08/06/2021 at 0718 EDT Total Protein 08/07/2021 9:40 [facility] Comment: Question specimen contaminated. This is a corrected result. Previous result was 5.4 g/dL on 08/06/2021 at 0718 EDT Albumin 08/07/2021 9:40 [facility] Comment: Question specimen contaminated. This is a corrected result. Previous result was 3.3 g/dL on 08/06/2021 at 0718 EDT Alkaline Phosphatase 08/07/2021 9:40 EDT [facility] Comment: Question specimen contaminated. This is a corrected result. Previous result was 46 U/L on 08/06/2021 at 0718 EDT AST 08/07/2021 9:40 EDT [facility] Comment: Question specimen contaminated. This is a corrected result. Previous result was 20 U/L on 08/06/2021 at 0718 EDT ALT 08/07/2021 9:40 EDT [facility] Comment: Question specimen contaminated. This is a corrected result. Previous result was 13 U/L on 08/06/2021 at 0718 EDT Bilirubin, Total 08/08/19 9:40 EDT [facility] Comment: Question specimen contaminated. This is a corrected result. Previous result was <0.5 mg/dL on 08/06/2021 at 0718 EDT Calcium 08/07/2021 9:40 EDT [facility] Comment: Question specimen contaminated. This is a corrected result. Previous result was 9.6 mg/dL on 08/06/2021 at 0718 EDT Albumin/Globulin Ratio 08/07/2021 9:40 T [facility] Comment: Question specimen contaminated. This is a corrected result. Previous result was 1.6 on 08/06/2021 at 0718 EDT Anion Gap 08/07/2021 9:40 EDT [facility] Comment:This is a corrected result. Previous result was 12 on 08/06/2021 at 0718 EDT Blood VENOUS BLOOD / Unknown Venipuncture / Unknown 08/06/2021 6:09 EDT 08/06/2021 6:34 EDT Yomi Arreola MD CHEMISTRY & BLOOD GA S ORDERABLES [facility] [address] [place] [address] * POCT GLUCOSE, INTERFACED (08/05/2021 14:09 EST) [facility] Glucose, POC 95 70 - 100 mg/dL 08/05/2021 14:11 EST [facility] HN LAB POC COMMENT (GLUCOSE) Test Performed by Nursing Services 08/05/2021 14:11 [facility] Blood CAPILLARY BLOOD / Unknown 08/05/2021 14:09 EST 08/05/2021 14:11 EST Sanjuana Gaona [employer] POINT OF CARE TEST O RDERABLES [facility] [address] [place] [address] * PHOSPHORUS (08/05/2021 5:31 EST) [facility] Phosphorus 3.8 2.5 - 4.5 mg/dL 08/05/2021 6:18 EST [facility] Blood VENOUS BLOOD / Unknown Venipuncture / Unknown 08/05/2021 5:31 EST 08/05/2021 5:39 EST Yomi Arreola MD CHEMISTRY & BLOOD GA S ORDERABLES Performing Organization Address [facility] Co de Phone Number [facility] [address] [place] [address] * MAGNESIUM (08/05/2021 5:31 EST) [facility] Magnesium 2.1 1.7 - 2.8 mg/dL 08/05/2021 6:18 EST [facility] Blood VENOUS BLOOD / Unknown Venipuncture / Unknown 08/05/2021 5:31 EST 08/05/2021 5:39 EST Yomi Arreola MD CHEMISTRY & BLOOD GA S ORDERABLES Performing Organization Address [facility] Co de Phone Number [facility] [address] [place] [address] * (ABNORMAL) COMPREHENSIVE METABOLIC PANEL (CMP) (08/05/2021 5:31 EST) Pathologist [facility] Sodium 138 136 - 145 mmol/L 08/05/2021 6:18 [facility] Potassium 4.2 3.5 - 5.0 mmol/L 08/05/2021 6:18 [facility] Chloride 98 96 - 110 mmol/L 08/05/2021 6:18 [facility] CO2 Total 28 22 - 32 mmol/L 08/05/2021 6:18 [facility] Glucose 109(H) 70 - 100 mg/dL 08/05/2021 6:18 [facility] BUN 51(H) 10 - 26 mg/dL 08/05/2021 6:18 [facility] Creatinine 2.24(H) 0.66 - 1.25 mg/dL 08/05/2021 6:18 [facility] eGFR 29(L) >60 mL/min/1.7 3m2 08/05/2021 6:18 [facility] Total Protein 5.9(L) 6.3 - 8.2 g/dL 08/05/2021 6:18 [facility] Albumin 3.5 3.4 - 4.9 g/dL 08/05/2021 6:18 [facility] Alkaline Phosphatase 65 38 - 126 U/L 08/05/2021 6:18 [facility] AST 18 15 - 46 U/L 08/05/2021 6:18 [facility] ALT 14 <50 U/L 08/05/2021 6:18 [facility] Bilirubin, Total <0.5 <1.4 mg/dL 08/06/19 6:18 [facility] Calcium 9.2 8.5 - 10.5 mg/dL 08/05/2021 6:18 [facility] Albumin/Globulin Ratio 1.5 1.0 - 2.5 08/05/2021 6:18 [facility] Anion Gap 12 5 - 14 08/05/2021 6:18 [facility] Blood VENOUS BLOOD / Unknown Venipuncture / Unknown 08/05/2021 5:31 EST 08/05/2021 5:39 EST Yomi Arreola MD CHEMISTRY & BLOOD GA S ORDERABLES [facility] [address] [place] [address] * (ABNORMAL) COMPLETE BLOOD COUNT AND DIFFERENTIAL (08/05/2021 5:30 EST) WBC 5.96 4.00 - 10.40 K/cmm 08/05/2021 5:50 [facility] RBC 2.78(L) 4.36 - 5.78 M/cmm 08/05/2021 5:50 [facility] Hemoglobin 8.4(L) 13.8 - 17.3 gm/dL 08/05/2021 5:50 [facility] HCT 26.2(L) 39.5 - 50.2 % 08/05/2021 5:50 [facility] MCV 94 81 - 95 fl 08/05/2021 5:50 [facility] MCH 30.2 27.6 - 33.0 pg 08/05/2021 5:50 [facility] MCHC 32.1(L) 32.8 - 36.4 gm/dL 08/05/2021 5:50 [facility] RDW-CV 13.0 <14.2 % 08/05/2021 5:50 [facility] RDW-SD 45.1 <46.0 fl 08/05/2021 5:50 [facility] PLT 199 141 - 377 K/cmm 08/05/2021 5:50 [facility] MPV 11.4 9.5 - 12.7 fl 08/05/2021 5:50 [facility] % Neutrophils 54.9 % 08/05/2021 5:50 [facility] % Lymphocytes 18.8 % 08/05/2021 5:50 [facility] % Monocytes 11.6 % 08/05/2021 5:50 [facility] % Eosinophils 13.1 % 08/05/2021 5:50 [facility] % Basophils 1.3 % 08/05/2021 5:50 [facility] % Immature Grans 0.3 % 08/06/19 5:50 [facility] Absolute Neutrophils 3.27 2.20 - 8.85 K/cmm 08/05/2021 5:50 [facility] Absolute Lymphocytes 1.12 1.09 - 3.30 K/cmm 08/05/2021 5:50 [facility] Absolute Monocytes 0.69 0.10 - 0.80 K/cmm 08/05/2021 5:50 [facility] Absolute Eosinophils 0.78(H) 0.03 - 0.61 K/cmm 08/05/2021 5:50 [facility] ABS Basophils 0.08 0.01 - 0.11 K/cmm 08/05/2021 5:50 [facility] Absolute Immature Grans 0.02 0.00 - 0.06 K/cmm 08/05/2021 5:50 [facility] Type of Differential: Auto 08/05/2021 5:50 [facility] Blood VENOUS BLOOD / Unknown Venipuncture / Unknown 08/05/2021 5:30 EST 08/05/2021 5:39 EST Yomi Arreola MD PACKAGES & DNA PROBE ORDERABLES [facility] [address] [place] [address] * POCT GLUCOSE, INTERFACED (08/04/2021 5:06 EST) Glucose, POC 96 70 - 100 mg/dL 08/04/2021 5:11 [facility] HN LAB POC COMMENT (GLUCOSE) Test Performed by Nursing Services 08/04/2021 5:11 [facility] Blood CAPILLARY BLOOD / Unknown 08/04/2021 5:06 EST 08/04/2021 5:11 EST Sanjuana Gaona [employer] POINT OF CARE TEST O RDERABLES [facility] [address] [place] [address] * PHOSPHORUS (08/04/2021 4:57 EST) [facility] Phosphorus 3.9 2.5 - 4.5 mg/dL 08/04/2021 5:44 [facility] Blood VENOUS BLOOD / Unknown Venipuncture / Unknown 08/04/2021 4:57 EST 08/04/2021 5:13 EST Yomi Arreola MD CHEMISTRY & BLOOD GA S ORDERABLES Performing Organization Address [facility] Co de Phone Number [facility] [address] [place] [address] * MAGNESIUM (08/04/2021 4:57 EST) [facility] Magnesium 2.4 1.7 - 2.8 mg/dL 08/04/2021 5:44 [facility] Blood VENOUS BLOOD / Unknown Venipuncture / Unknown 08/04/2021 4:57 EST 08/04/2021 5:13 EST Yomi Arreola MD CHEMISTRY & BLOOD GA S ORDERABLES Performing Organization Address [facility] Co de Phone Number [facility] [address] [place] [address] * (ABNORMAL) COMPLETE BLOOD COUNT AND DIFFERENTIAL (08/04/2021 4:57 EST) [facility] WBC 6.83 4.00 - 10.40 K/cmm 08/04/2021 5:19 [facility] RBC 3.17(L) 4.36 - 5.78 M/cmm 08/04/2021 5:19 [facility] Hemoglobin 9.6(L) 13.8 - 17.3 gm/dL 08/04/2021 5:19 [facility] HCT 29.4(L) 39.5 - 50.2 % 08/04/2021 5:19 [facility] MCV 93 81 - 95 fl 08/04/2021 5:19 [facility] MCH 30.3 27.6 - 33.0 pg 08/04/2021 5:19 [facility] MCHC 32.7(L) 32.8 - 36.4 gm/dL 08/04/2021 5:19 [facility] RDW-CV 13.1 <14.2 % 08/04/2021 5:19 [facility] RDW-SD 45.1 <46.0 fl 08/04/2021 5:19 [facility] PLT 236 141 - 377 K/cmm 08/04/2021 5:19 [facility] MPV 11.3 9.5 - 12.7 fl 08/04/2021 5:19 [facility] % Neutrophils 60.8 % 08/04/2021 5:19 [facility] % Lymphocytes 17.4 % 08/04/2021 5:19 [facility] % Monocytes 12.0 % 08/04/2021 5:19 [facility] % Eosinophils 8.8 % 08/04/2021 5:19 [facility] % Basophils 0.7 % 08/04/2021 5:19 [facility] % Immature Grans 0.3 % 08/05/19 5:19 [facility] Absolute Neutrophils 4.15 2.20 - 8.85 K/cmm 08/04/2021 5:19 [facility] Absolute Lymphocytes 1.19 1.09 - 3.30 K/cmm 08/04/2021 5:19 [facility] Absolute Monocytes 0.82(H) 0.10 - 0.80 K/cmm 08/04/2021 5:19 [facility] Absolute Eosinophils 0.60 0.03 - 0.61 K/cmm 08/04/2021 5:19 [facility] ABS Basophils 0.05 0.01 - 0.11 K/cmm 08/04/2021 5:19 [facility] Absolute Immature Grans 0.02 0.00 - 0.06 K/cmm 08/04/2021 5:19 [facility] Type of Differential: Auto 08/04/2021 5:19 [facility] Blood VENOUS BLOOD / Unknown Venipuncture / Unknown 08/04/2021 4:57 EST 08/04/2021 5:13 EST Yomi Arreola MD PACKAGES & DNA PROBE ORDERABLES [facility] [address] [place] [address] * (ABNORMAL) COMPREHENSIVE METABOLIC PANEL (CMP) (08/04/2021 4:57 EST) Sodium 139 136 - 145 mmol/L 08/04/2021 5:44 [facility] Potassium 4.6 3.5 - 5.0 mmol/L 08/04/2021 5:44 [facility] Chloride 96 96 - 110 mmol/L 08/04/2021 5:44 [facility] CO2 Total 33(H) 22 - 32 mmol/L 08/04/2021 5:44 [facility] Glucose 95 70 - 100 mg/dL 08/04/2021 5:44 [facility] BUN 53(H) 10 - 26 mg/dL 08/04/2021 5:44 [facility] Creatinine 2.35(H) 0.66 - 1.25 mg/dL 08/04/2021 5:44 [facility] eGFR 28(L) >60 mL/min/1.7 3m2 08/04/2021 5:44 [facility] Total Protein 6.6 6.3 - 8.2 g/dL 08/04/2021 5:44 [facility] Albumin 4.1 3.4 - 4.9 g/dL 08/04/2021 5:44 [facility] Alkaline Phosphatase 78 38 - 126 U/L 08/04/2021 5:44 [facility] AST 19 15 - 46 U/L 08/04/2021 5:44 [facility] ALT 16 <50 U/L 08/04/2021 5:44 [facility] Bilirubin, Total <0.5 <1.4 mg/dL 08/05/19 5:44 [facility] Calcium 9.3 8.5 - 10.5 mg/dL 08/04/2021 5:44 [facility] Albumin/Globulin Ratio 1.6 1.0 - 2.5 08/04/2021 5:44 [facility] Anion Gap 10 5 - 14 08/04/2021 5:44 EST [facility] Blood VENOUS BLOOD / Unknown Venipuncture / Unknown 08/04/2021 4:57 EST 08/04/2021 5:13 EST Yomi Arreola MD CHEMISTRY & BLOOD GA S ORDERABLES Performing Organization Address City/[facility] Co de Phone Number [facility] [address] [place] [address] * POCT GLUCOSE, INTERFACED (08/03/2021 5:44 EST) Glucose, POC 92 70 - 100 mg/dL 08/03/2021 5:45 EST [facility] HN LAB POC COMMENT (GLUCOSE) Test Performed by Nursing Services 08/03/2021 5:45 EST [facility] Blood CAPILLARY BLOOD / Unknown 08/03/2021 5:44 EST 08/03/2021 5:45 EST Sanjuana Gaona [employer] POINT OF CARE TEST O RDERABLES [facility] [address] [place] [address] * PHOSPHORUS (08/03/2021 5:38 EST) Phosphorus 4.2 2.5 - 4.5 mg/dL 08/03/2021 6:47 EST [facility] Blood VENOUS BLOOD / Unknown Venipuncture / Unknown 08/03/2021 5:38 EST 08/03/2021 6:03 EST Yomi Arreola MD CHEMISTRY & BLOOD GA S ORDERABLES [facility] [address] [place] [address] * MAGNESIUM (08/03/2021 5:38 EST) Pathologist [facility] Magnesium 2.4 1.7 - 2.8 mg/dL 08/03/2021 6:47 [facility] Blood VENOUS BLOOD / Unknown Venipuncture / Unknown 08/03/2021 5:38 EST 08/03/2021 6:03 EST Yomi Arreola MD CHEMISTRY & BLOOD GA S ORDERABLES Performing Organization Address City/[facility] Co de Phone Number [facility] [address] [place] [address] * (ABNORMAL) COMPLETE BLOOD COUNT AND DIFFERENTIAL (08/03/2021 5:38 EST) [facility] WBC 5.81 4.00 - 10.40 K/cmm 08/03/2021 6:07 [facility] RBC 3.16(L) 4.36 - 5.78 M/cmm 08/03/2021 6:07 [facility] Hemoglobin 9.7(L) 13.8 - 17.3 gm/dL 08/03/2021 6:07 [facility] HCT 28.7(L) 39.5 - 50.2 % 08/03/2021 6:07 [facility] MCV 91 81 - 95 fl 08/03/2021 6:07 [facility] MCH 30.7 27.6 - 33.0 pg 08/03/2021 6:07 [facility] MCHC 33.8 32.8 - 36.4 gm/dL 08/03/2021 6:07 [facility] RDW-CV 13.1 <14.2 % 08/03/2021 6:07 [facility] RDW-SD 43.4 <46.0 fl 08/03/2021 6:07 [facility] PLT 223 141 - 377 K/cmm 08/03/2021 6:07 [facility] MPV 11.6 9.5 - 12.7 fl 08/03/2021 6:07 [facility] % Neutrophils 56.0 % 08/03/2021 6:07 [facility] % Lymphocytes 18.6 % 08/03/2021 6:07 [facility] % Monocytes 14.1 % 08/03/2021 6:07 [facility] % Eosinophils 10.0 % 08/03/2021 6:07 [facility] % Basophils 1.0 % 08/03/2021 6:07 [facility] % Immature Grans 0.3 % 08/04/19 6:07 [facility] Absolute Neutrophils 3.25 2.20 - 8.85 K/cmm 08/03/2021 6:07 [facility] Absolute Lymphocytes 1.08(L) 1.09 - 3.30 K/cmm 08/03/2021 6:07 [facility] Absolute Monocytes 0.82(H) 0.10 - 0.80 K/cmm 08/03/2021 6:07 [facility] Absolute Eosinophils 0.58 0.03 - 0.61 K/cmm 08/03/2021 6:07 [facility] ABS Basophils 0.06 0.01 - 0.11 K/cmm 08/03/2021 6:07 [facility] Absolute Immature Grans 0.02 0.00 - 0.06 K/cmm 08/03/2021 6:07 [facility] Type of Differential: Auto 08/03/2021 6:07 [facility] Blood VENOUS BLOOD / Unknown Venipuncture / Unknown 08/03/2021 5:38 EST 08/03/2021 6:00 EST Yomi Arreola MD PACKAGES & DNA PROBE ORDERABLES [facility] [address] [place] [address] * (ABNORMAL) COMPREHENSIVE METABOLIC PANEL (CMP) (08/03/2021 5:38 EST) Sodium 137 136 - 145 mmol/L 08/03/2021 6:47 [facility] Potassium 4.8 3.5 - 5.0 mmol/L 08/03/2021 6:47 [facility] Chloride 98 96 - 110 mmol/L 08/03/2021 6:47 [facility] CO2 Total 27 22 - 32 mmol/L 08/03/2021 6:47 [facility] Glucose 99 70 - 100 mg/dL 08/03/2021 6:47 [facility] BUN 49(H) 10 - 26 mg/dL 08/03/2021 6:47 [facility] Creatinine 2.43(H) 0.66 - 1.25 mg/dL 08/03/2021 6:47 [facility] eGFR 27(L) >60 mL/min/1.7 3m2 08/03/2021 6:47 [facility] Total Protein 6.5 6.3 - 8.2 g/dL 08/03/2021 6:47 [facility] Albumin 4.0 3.4 - 4.9 g/dL 08/03/2021 6:47 [facility] Alkaline Phosphatase 75 38 - 126 U/L 08/03/2021 6:47 [facility] AST 18 15 - 46 U/L 08/03/2021 6:47 [facility] ALT 18 <50 U/L 08/03/2021 6:47 [facility] Bilirubin, Total <0.5 <1.4 mg/dL 08/04/19 6:47 [facility] Calcium 9.1 8.5 - 10.5 mg/dL 08/03/2021 6:47 [facility] Albumin/Globulin Ratio 1.6 1.0 - 2.5 08/03/2021 6:47 [facility] Anion Gap 12 5 - 14 08/03/2021 6:47 [facility] Blood VENOUS BLOOD / Unknown Venipuncture / Unknown 08/03/2021 5:38 EST 08/03/2021 6:03 EST Yomi Arreola MD CHEMISTRY & BLOOD GA S ORDERABLES Performing Organization Address City/[facility] Co de Phone Number [facility] [address] [place] [address] * (ABNORMAL) POCT GLUCOSE, INTERFACED (08/02/2021 4:46 EST) Glucose, POC 115(H) 70 - 100 mg/dL 08/02/2021 4:46 EST [facility] HN LAB POC COMMENT (GLUCOSE) Test Performed by Nursing Services 08/02/2021 4:46 EST [facility] Blood CAPILLARY BLOOD / Unknown 08/02/2021 4:46 EST 08/02/2021 4:46 EST Sanjuana Gaona [employer] POINT OF CARE TEST O RDERABLES Performing Organization Address City/[facility]/ZIP Co de Phone Number [facility] [address] [place] [address] * PHOSPHORUS (08/02/2021 4:39 EST) Phosphorus 4.2 2.5 - 4.5 mg/dL 08/02/2021 5:13 EST [facility] Blood VENOUS BLOOD / Unknown Venipuncture / Unknown 08/02/2021 4:39 EST 08/02/2021 4:45 EST Yomi Arreola MD CHEMISTRY & BLOOD GA S ORDERABLES Performing Organization Address City/[facility] Co de Phone Number [facility] [address] [place] [address] * MAGNESIUM (08/02/2021 4:39 EST) Magnesium 2.2 1.7 - 2.8 mg/dL 08/02/2021 5:13 EST [facility] Blood VENOUS BLOOD / Unknown Venipuncture / Unknown 08/02/2021 4:39 EST 08/02/2021 4:45 EST Yomi Arreola MD CHEMISTRY & BLOOD GA S ORDERABLES [facility] [address] [place] [address] * (ABNORMAL) COMPLETE BLOOD COUNT AND DIFFERENTIAL (08/02/2021 4:39 EST) WBC 4.40 4.00 - 10.40 K/cmm 08/02/2021 4:53 [facility] RBC 2.98(L) 4.36 - 5.78 M/cmm 08/02/2021 4:53 [facility] Hemoglobin 9.3(L) 13.8 - 17.3 gm/dL 08/02/2021 4:53 [facility] HCT 27.1(L) 39.5 - 50.2 % 08/02/2021 4:53 [facility] MCV 91 81 - 95 fl 08/02/2021 4:53 [facility] MCH 31.2 27.6 - 33.0 pg 08/02/2021 4:53 [facility] MCHC 34.3 32.8 - 36.4 gm/dL 08/02/2021 4:53 [facility] RDW-CV 13.2 <14.2 % 08/02/2021 4:53 [facility] RDW-SD 43.6 <46.0 fl 08/02/2021 4:53 [facility] PLT 203 141 - 377 K/cmm 08/02/2021 4:53 [facility] MPV 11.3 9.5 - 12.7 fl 08/02/2021 4:53 [facility] % Neutrophils 51.6 % 08/02/2021 4:53 [facility] % Lymphocytes 20.0 % 08/02/2021 4:53 [facility] % Monocytes 12.5 % 08/02/2021 4:53 [facility] % Eosinophils 14.3 % 08/02/2021 4:53 [facility] % Basophils 0.9 % 08/02/2021 4:53 [facility] % Immature Grans 0.7 % 08/03/19 4:53 [facility] Absolute Neutrophils 2.27 2.20 - 8.85 K/cmm 08/02/2021 4:53 [facility] Absolute Lymphocytes 0.88(L) 1.09 - 3.30 K/cmm 08/02/2021 4:53 [facility] Absolute Monocytes 0.55 0.10 - 0.80 K/cmm 08/02/2021 4:53 [facility] Absolute Eosinophils 0.63(H) 0.03 - 0.61 K/cmm 08/02/2021 4:53 [facility] ABS Basophils 0.04 0.01 - 0.11 K/cmm 08/02/2021 4:53 [facility] Absolute Immature Grans 0.03 0.00 - 0.06 K/cmm 08/02/2021 4:53 [facility] Type of Differential: Auto 08/02/2021 4:53 [facility] Blood VENOUS BLOOD / Unknown Venipuncture / Unknown 08/02/2021 4:39 EST 08/02/2021 4:45 EST Yomi Arreola MD PACKAGES & DNA PROBE ORDERABLES Performing Organization Address City/State/[facility] Co de Phone Number [facility] [address] [place] [address] * (ABNORMAL) COMPREHENSIVE METABOLIC PANEL (CMP) (08/02/2021 4:39 EST) Sodium 134(L) 136 - 145 mmol/L 08/02/2021 5:13 [facility] Potassium 4.1 3.5 - 5.0 mmol/L 08/02/2021 5:13 [facility] Chloride 100 96 - 110 mmol/L 08/02/2021 5:13 [facility] CO2 Total 23 22 - 32 mmol/L 08/02/2021 5:13 [facility] Glucose 115(H) 70 - 100 mg/dL 08/02/2021 5:13 [facility] BUN 43(H) 10 - 26 mg/dL 08/02/2021 5:13 [facility] Creatinine 2.10(H) 0.66 - 1.25 mg/dL 08/02/2021 5:13 [facility] eGFR 32(L) >60 mL/min/1.7 3m2 08/02/2021 5:13 [facility] Total Protein 6.1(L) 6.3 - 8.2 g/dL 08/02/2021 5:13 [facility] Albumin 3.5 3.4 - 4.9 g/dL 08/02/2021 5:13 [facility] Alkaline Phosphatase 75 38 - 126 U/L 08/02/2021 5:13 [facility] AST 21 15 - 46 U/L 08/02/2021 5:13 [facility] ALT 20 <50 U/L 08/02/2021 5:13 [facility] Bilirubin, Total <0.5 <1.4 mg/dL 08/03/19 5:13 [facility] Calcium 8.9 8.5 - 10.5 mg/dL 08/02/2021 5:13 [facility] Albumin/Globulin Ratio 1.3 1.0 - 2.5 08/02/2021 5:13 [facility] Anion Gap 11 5 - 14 08/02/2021 5:13 [facility] Blood VENOUS BLOOD / Unknown Venipuncture / Unknown 08/02/2021 4:39 EST 08/02/2021 4:45 EST Yomi Arreola MD CHEMISTRY & BLOOD GA S ORDERABLES [facility] [address] [place] [address] * POCT GLUCOSE, INTERFACED (08/01/2021 22:07 EST) Glucose, POC 87 70 - 100 mg/dL 08/01/2021 22:08 EST [facility] HN LAB POC COMMENT (GLUCOSE) Test Performed by Nursing Services 08/01/2021 22:08 EST [facility] Blood CAPILLARY BLOOD / Unknown 08/01/2021 22:07 EST 08/01/2021 22:08 EST Sanjuana Gaona CARPENTRY TEACHER POINT OF CARE TEST O RDERABLES Performing Organization Address [facility]/ZIP Co de Phone Number [facility] [address] [place] [address] * POCT GLUCOSE, INTERFACED (08/01/2021 14:46 EST) Glucose, POC 83 70 - 100 mg/dL 08/01/2021 14:47 EST [facility] HN LAB POC COMMENT (GLUCOSE) Test Performed by Nursing Services 08/01/2021 14:47 EST [facility] Blood CAPILLARY BLOOD / Unknown 08/01/2021 14:46 EST 08/01/2021 14:47 EST Sanjuana Gaona CARPENTRY TEACHER POINT OF CARE TEST O RDERABLES Performing Organization Address [facility] de Phone Number [facility] [address] [place] [address] * FL UGI WO AIR W CORE RESCUER (08/01/2021 10:35 EST) Anatomical Region Laterality Modality [...] 12:14 EST FL UGI WO AIR W CORE RESCUER ??08/01/2021 9:35 AM Signs and Symptoms/Comments: ?? [...] to tolerate oral intake of contrast. Findings: Shipping Agent KUB demonstrates a large air and contrast-filled [...] - 08/01/2021 FL UGI WO AIR W CORE RESCUER 08/01/2021 9:35 AM Signs and Symptoms/Comments: History [...] able to tolerate oral intake ofcontrast. Findings: Shipping Agent KUB demonstrates a large air and contrast-filled [...] andagree with the findings. Ashlie Greene MD [facility] DI[facility]NOSTIC IMAGI NG ORDERABLES * (ABNORMAL) COMPLETE BLOOD COUNT AND DIFFERENTIAL (08/01/2021 5:26 EST) WBC 6.37 4.00 - 10.40 K/cmm 08/01/2021 5:37 EST [facility] RBC 2.70(L) 4.36 - 5.78 M/cmm 08/01/2021 5:37 EST [facility] Hemoglobin 8.1(L) 13.8 - 17.3 gm/dL 08/01/2021 5:37 [facility] HCT 24.9(L) 39.5 - 50.2 % 08/01/2021 5:37 [facility] MCV 92 81 - 95 fl 08/01/2021 5:37 [facility] MCH 30.0 27.6 - 33.0 pg 08/01/2021 5:37 [facility] MCHC 32.5(L) 32.8 - 36.4 gm/dL 08/01/2021 5:37 [facility] RDW-CV 13.2 <14.2 % 08/01/2021 5:37 [facility] RDW-SD 44.2 <46.0 fl 08/01/2021 5:37 [facility] PLT 167 141 - 377 K/cmm 08/01/2021 5:37 [facility] MPV 11.5 9.5 - 12.7 fl 08/01/2021 5:37 [facility] % Neutrophils 62.4 % 08/01/2021 5:37 [facility] % Lymphocytes 14.4 % 08/01/2021 5:37 [facility] % Monocytes 9.7 % 08/01/2021 5:37 [facility] % Eosinophils 12.1 % 08/01/2021 5:37 [facility] % Basophils 0.9 % 08/01/2021 5:37 [facility] % Immature Grans 0.5 % 08/02/19 5:37 [facility] Absolute Neutrophils 3.97 2.20 - 8.85 K/cmm 08/01/2021 5:37 [facility] Absolute Lymphocytes 0.92(L) 1.09 - 3.30 K/cmm 08/01/2021 5:37 [facility] Absolute Monocytes 0.62 0.10 - 0.80 K/cmm 08/01/2021 5:37 [facility] Absolute Eosinophils 0.77(H) 0.03 - 0.61 K/cmm 08/01/2021 5:37 [facility] ABS Basophils 0.06 0.01 - 0.11 K/cmm 08/01/2021 5:37 EST [facility] Absolute Immature Grans 0.03 0.00 - 0.06 K/cmm 08/01/2021 5:37 EST [facility] Type of Differential: Auto 08/01/2021 5:37 EST [facility] Blood BLOOD SAMPLE TAKEN FROM CENTRAL LINE / Unknown Venipuncture / Unknown 08/01/2021 5:26 EST 08/01/2021 5:30 EST Yomi Arreola MD PACKAGES & DNA PROBE ORDERABLES Performing Organization Address [facility] Co de Phone Number [facility] [address] [place] [address] * PHOSPHORUS (08/01/2021 5:25 EST) Phosphorus 3.8 2.5 - 4.5 mg/dL 08/01/2021 6:07 EST [facility] Blood VENOUS BLOOD / Unknown Venipuncture / Unknown 08/01/2021 5:25 EST 08/01/2021 5:30 EST Yomi Arreola MD CHEMISTRY & BLOOD GA S ORDERABLES Performing Organization Address [facility] Co de Phone Number [facility] [address] [place] [address] * MAGNESIUM (08/01/2021 5:25 EST) Magnesium 2.3 1.7 - 2.8 mg/dL 08/01/2021 6:07 EST [facility] Blood VENOUS BLOOD / Unknown Venipuncture / Unknown 08/01/2021 5:25 EST 08/01/2021 5:30 EST Yomi Arreola MD CHEMISTRY & BLOOD GA S ORDERABLES Performing Organization Address [facility] de Phone Number [facility] [address] [place] [address] * (ABNORMAL) COMPREHENSIVE METABOLIC PANEL (CMP) (08/01/2021 5:25 EST) Sodium 131(L) 136 - 145 mmol/L 08/01/2021 6:07 [facility] Potassium 4.2 3.5 - 5.0 mmol/L 08/01/2021 6:07 [facility] Chloride 100 96 - 110 mmol/L 08/01/2021 6:07 [facility] CO2 Total 18(L) 22 - 32 mmol/L 08/01/2021 6:07 [facility] Glucose 79 70 - 100 mg/dL 08/01/2021 6:07 [facility] BUN 44(H) 10 - 26 mg/dL 08/01/2021 6:07 [facility] Creatinine 1.89(H) 0.66 - 1.25 mg/dL 08/01/2021 6:07 [facility] eGFR 36(L) >60 mL/min/1.7 3m2 08/01/2021 6:07 [facility] Total Protein 5.3(L) 6.3 - 8.2 g/dL 08/01/2021 6:07 [facility] Albumin 3.0(L) 3.4 - 4.9 g/dL 08/01/2021 6:07 [facility] Alkaline Phosphatase 69 38 - 126 U/L 08/01/2021 6:07 [facility] AST 20 15 - 46 U/L 08/01/2021 6:07 [facility] ALT 19 <50 U/L 08/01/2021 6:07 [facility] Bilirubin, Total <0.5 <1.4 mg/dL 08/02/19 6:07 [facility] Calcium 7.4(L) 8.5 - 10.5 mg/dL 08/01/2021 6:07 [facility] Albumin/Globulin Ratio 1.3 1.0 - 2.5 08/01/2021 6:07 [facility] Anion Gap 13 5 - 14 08/01/2021 6:07 [facility] Blood VENOUS BLOOD / Unknown Venipuncture / Unknown 08/01/2021 5:25 EST 08/01/2021 5:30 EST Yomi Arreola MD CHEMISTRY & BLOOD GA S ORDERABLES Performing Organization Address [facility] Co de Phone Number [facility] [address] [place] [address] * COVID-19 TEST [facility] PCR (07/31/2021 21:37 EST) Swab BOTH ANTERIOR NARES / Unknown Swab / Unknown 07/31/2021 21:37 EST 07/31/2021 21:43 EST Yomi Arreola MD MICROBIOLOGY - GENER AL ORDERABLES Performing Organization Address [facility] Co de Phone Number [facility] [address] [place] [address] * COVID-19 TESTING (07/31/2021 21:37 EST) COVID-19 rt-PCR Result Negative Negative 08/01/2021 2:11 EST [facility] Comment: This test has [...] history, and epidemiological information. Performed on the Xspand Fusion instrument Performing Lab [place] [facility] 08/01/2021 2:11 EST [facility] Swab BOTH ANTERIOR NARES / Unknown Swab / Unknown 07/31/2021 21:37 EST 07/31/2021 21:43 EST Yomi Arreola MD MICROBIOLOGY - GENER AL ORDERABLES Performing Organization Address [facility] Co de Phone Number [facility] [address] [place] [address] * PHOSPHORUS (07/31/2021 21:36 EST) Phosphorus 4.0 2.5 - 4.5 mg/dL 07/31/2021 21:59 EST [facility] Blood VENOUS BLOOD / Unknown Venipuncture / Unknown 07/31/2021 21:36 EST 07/31/2021 21:43 EST Yomi Arreola MD CHEMISTRY & BLOOD GA S ORDERABLES Performing Organization Address [facility] Co de Phone Number [facility] [address] [place] [address] * MAGNESIUM (07/31/2021 21:36 EST) Magnesium 2.1 1.7 - 2.8 mg/dL 07/31/2021 21:59 EST [facility] Blood VENOUS BLOOD / Unknown Venipuncture / Unknown 07/31/2021 21:36 EST 07/31/2021 21:43 EST Yomi Arreola MD CHEMISTRY & BLOOD GA S ORDERABLES Performing Organization Address [facility] Co de Phone Number [facility] [address] [place] [address] * (ABNORMAL) COMPLETE BLOOD COUNT AND DIFFERENTIAL (07/31/2021 21:36 EST) WBC 8.00 4.00 - 10.40 K/cmm 07/31/2021 21:55 EST [facility] RBC 3.23(L) 4.36 - 5.78 M/cmm 07/31/2021 21:55 EST [facility] Hemoglobin 9.9(L) 13.8 - 17.3 gm/dL 07/31/2021 21:55 EST [facility] HCT 29.1(L) 39.5 - 50.2 % 07/31/2021 21:55 [facility] MCV 90 81 - 95 fl 07/31/2021 21:55 [facility] MCH 30.7 27.6 - 33.0 pg 07/31/2021 21:55 [facility] MCHC 34.0 32.8 - 36.4 gm/dL 07/31/2021 21:55 [facility] RDW-CV 13.1 <14.2 % 07/31/2021 21:55 [facility] RDW-SD 43.8 <46.0 fl 07/31/2021 21:55 [facility] PLT 186 141 - 377 K/cmm 07/31/2021 21:55 [facility] MPV 11.6 9.5 - 12.7 fl 07/31/2021 21:55 [facility] % Neutrophils 75.2 % 07/31/2021 21:55 [facility] % Lymphocytes 8.9 % 07/31/2021 21:55 [facility] % Monocytes 6.6 % 07/31/2021 21:55 [facility] % Eosinophils 7.9 % 07/31/2021 21:55 [facility] % Basophils 0.8 % 07/31/2021 21:55 [facility] % Immature Grans 0.6 % 08/01/19 21:55 [facility] Absolute Neutrophils 6.02 2.20 - 8.85 K/cmm 07/31/2021 21:55 [facility] Absolute Lymphocytes 0.71(L) 1.09 - 3.30 K/cmm 07/31/2021 21:55 [facility] Absolute Monocytes 0.53 0.10 - 0.80 K/cmm 07/31/2021 21:55 [facility] Absolute Eosinophils 0.63(H) 0.03 - 0.61 K/cmm 07/31/2021 21:55 [facility] ABS Basophils 0.06 0.01 - 0.11 K/cmm 07/31/2021 21:55 [facility] Absolute Immature Grans 0.05 0.00 - 0.06 K/[facility] 07/31/2021 21:55 [facility] Type of Differential: Auto 07/31/2021 21:55 [facility] Blood BLOOD SAMPLE TAKEN FROM CENTRAL LINE / Unknown Venipuncture / Unknown 07/31/2021 21:36 EST 07/31/2021 21:43 EST Yomi Arreola MD PACKAGES & DNA PROBE ORDERABLES [facility] [address] [place] [address] * (ABNORMAL) COMPREHENSIVE METABOLIC PANEL (CMP) (07/31/2021 21:36 EST) Sodium 134(L) 136 - 145 mmol/L 07/31/2021 21:59 [facility] Potassium 4.4 3.5 - 5.0 mmol/L 07/31/2021 21:59 [facility] Chloride 100 96 - 110 mmol/L 07/31/2021 21:59 [facility] CO2 Total 21(L) 22 - 32 mmol/L 07/31/2021 21:59 [facility] Glucose 96 70 - 100 mg/dL 07/31/2021 21:59 [facility] BUN 53(H) 10 - 26 mg/dL 07/31/2021 21:59 [facility] Creatinine 2.22(H) 0.66 - 1.25 mg/dL 07/31/2021 21:59 [facility] eGFR 30(L) >60 mL/min/1.7 3m2 07/31/2021 21:59 [facility] Total Protein 6.7 6.3 - 8.2 g/dL 07/31/2021 21:59 [facility] Albumin 4.1 3.4 - 4.9 g/dL 07/31/2021 21:59 [facility] Alkaline Phosphatase 89 38 - 126 U/L 07/31/2021 21:59 [facility] AST 25 15 - 46 U/L 07/31/2021 21:59 [facility] ALT 27 <50 U/L 07/31/2021 21:59 [facility] Bilirubin, Total <0.5 <1.4 mg/dL 08/01/19 21:59 [facility] Calcium 9.0 8.5 - 10.5 mg/dL 07/31/2021 21:59 [facility] Albumin/Globulin Ratio 1.6 1.0 - 2.5 07/31/2021 21:59 [facility] Anion Gap 13 5 - 14 07/31/2021 21:59 [facility] Blood VENOUS BLOOD / Unknown Venipuncture / Unknown 07/31/2021 21:36 EST 07/31/2021 21:43 EST Yomi Arreola MD CHEMISTRY & BLOOD GA S ORDERABLES Performing Organization Address [facility]/State/[facility] Co de Phone Number [facility] [address] [place] [address] * XR CHEST PORTABLE 1 VIEW (07/31/2021 [...] the left upper quadrant, and outside the [id number]. Soft tissues, bones and extrathoracic findings: There [...] into the left upper quadrant, and outsidethe [id number]. Soft tissues, bones and extrathoracic findings: There [...] Donna Carpenter RN)[phone] (Given - Provider: John Rocha, [...] 08/11/2021 documented in this encounter Care Teams Nuclear Medicine Tech Relationship Specialty Start Date End Date Jovani Wharton DO [address] [place] [address] PCP - General 10/11/16 10/17/21 documented as of this encounter
--- OUTSIDE RECORDS SUMMARY | 2024-02-18 09:31 | XMS_ITS | Encounter Summary ---
Author Organization [facility] Address [address] [place] [address] Care Team Providers Care Orthopedic Technician Name Role Phone Jorge Chauhan MD Primary Care Provider Encounter Details Date Type Department Care Team (Latest Contact Info) Description 10/21/2021 0:30 EDT - 10/21/2021 23:59 EDT Hospital Encounter [facility] Pre-Surgical Testing [address] [place], [place] [id number] Discharge Disposition: Home or Self Care Social [...] Location: Covid test plan for 10/22/21 at [facility]. Vaccination Status: _x__ Pt states fully vaccinated, __x_ Verified in chart ___ Pt states unvaccinated -Do not instruct patient regarding COVID testing, let [facility] coordinate this -Communicate status on yellow [...] instruct them to call us back at [phone] to report symptoms Visitor Policy: Surgical & [...] daily. added in this encounter Care Teams Orthopedic Technician Relationship Specialty Start Date End Date Jorge Chauhan MD [address] [place] [id number] PCP - General Family Medicine - Primary Care 10/18/21 11/22/21 documented as of this encounter
--- OUTSIDE RECORDS SUMMARY | 2024-02-18 09:31 | XMS_ITS | Encounter Summary ---
Author Organization [facility] Address [address] [place] [address] Care Team Providers Care Account Engineer Name Role Phone Jovani Wharton DO Primary Care Provider [phone] Reason for Visit * (Routine/Next Available) - Receiving Office to Obtain Authorization Specialty Diagnoses / Procedures Referred By Devaughn bobo Referred To Contact Procedures XR OUTSIDE IMAGES BODY Unknown, Provider, Referral ID Status Reason Start Date Expiration Date Visits Requested Visits Authorized [id number] Receiving Office to Obtain Authorization 07/31/2021 1 1 Encounter Details Date Type Department Care Team (Latest Contact Info) Description 07/28/2021 - 07/28/2021 23:59 EST Hospital Encounter [facility] Secondary Reads [place] Discharge Disposition: [...] filedocumented in this encounter Care Teams Account Engineer Relationship Specialty Start Date End Date Jovani Wharton DO [address] [place] [address] PCP - General 10/11/16 10/17/21 documented as of this encounter
--- OUTSIDE RECORDS SUMMARY | 2024-02-18 09:31 | XMS_ITS | Encounter Summary ---
Author Organization [facility] Address [address] [place] [address] Care Team Providers Care Complaint Operator Name Role Phone Jorge Chauhan MD Primary Care Provider Luis Lauren MD Primary Care Provider [phone] Slade Tran MD Primary Care Provider [phone] Encounter Details Date Type Department Care Team (Late st Contact Info) Description 10/21/2021 Lab Requisition [facility] Pathology & Laboratory Medicine - [facility] [address] [place], [place] [id number] Outr Resulting Lab, Provider Social History Tobacco [...] Negative Negative 10/23/2021 10:57 EDT [facility] Blood VENOUS BLOOD / Unknown 10/20/2021 16:02 EDT 10/21/2021 22:12 EDT Provider Outr Resulting Lab CHEMISTRY & BLOOD GAS ORDERABLES [facility] [address] [place] [address] documented in this encounter Visit Diagnoses Not on filedocumented in this encounter Care Teams Complaint Operator Relationship Specialty Start Date End Date Jorge Chauhan MD [address] [place] [address] PCP - General Family Medicine - Primary Care 10/18/21 11/22/21 Luis Lauren MD [address] [place] [address] PCP - General Family Medicine - Primary Care 11/23/21 11/11/22 Slade Tran MD [facility] [place] [place] [address] PCP - General 11/12/22 documented as of this encounter
--- OUTSIDE RECORDS SUMMARY | 2024-02-18 09:31 | XMS_ITS | Encounter Summary ---
Author Organization [facility] Address [address] [place] [address] Care Team Providers Care Lens Molding Equipment Operator Name Role Phone Jorge Chauhan MD Primary Care Provider Reason for Visit * Reason Onset Date Comments Other 10/20/2021 Encounter Details Date Type Department Care Team (Late st Contact Info) Description 10/20/2021 Telephone [facility] General Surgery - [address] [id number] Ollie Lee MD [address] [place] [address], [address] [place] [address] Other Social History Tobacco Use [...] see Mathew is having COVID testing at [facility]. * Telephone Encounter - Pamela Doty - [...] on filedocumented in this encounter Care Teams Lens Molding Equipment Operator Relationship Specialty Start Date End Date Jorge Chauhan MD [address] [place] [address] [place] [address] PCP - General Family Medicine - Primary Care 10/18/21 11/22/21 documented as of this encounter
--- OUTSIDE RECORDS SUMMARY | 2024-02-18 09:31 | XMS_ITS | Encounter Summary ---
Author Organization [facility] Address [address] [place] [address] Care Team Providers Care Fusion Juncture Grinder Name Role Phone Jovani Wharton DO Primary Care Provider +1- [phone] Reason for Visit * (Routine/Next Available) - Receiving Office to Obtain Authorization Specialty Diagnoses / Procedures Referred By Devaughn bobo Referred To Contact Procedures XR OUTSIDE IMAGES CHEST Unknown, Provider, Referral ID Status Reason Start Date Expiration Date Visits Requested Visits Authorized [id number] Receiving Office to Obtain Authorization 07/27/2021 1 1 Encounter Details Date Type Department Care Team (Latest Contact Info) Description 07/27/2021 12:18 EST Hospital Encounter [facility] [place] Discharge Disposition: Home [...] on filedocumented in this encounter Care Teams Fusion Juncture Grinder Relationship Specialty Start Date End Date Jovani Wharton DO [address] [place] [address] PCP - General 10/11/16 10/17/21 documented as of this encounter
--- OUTSIDE RECORDS SUMMARY | 2024-02-18 09:31 | XMS_ITS | Encounter Summary ---
Author Organization [facility] Address [address] [place] [address] Care Team Providers Care Property Accountant Name Role Phone Jovani Wharton DO Primary Care Provider +1- [phone] Reason for Visit * (Routine/Next Available) - Receiving Office to Obtain Authorization Specialty Diagnoses / Procedures Referred By Devaughn bobo Referred To Contact Procedures XR OUTSIDE IMAGES BODY Unknown, Provider, Referral ID Status Reason Start Date Expiration Date Visits Requested Visits Authorized [id number] Receiving Office to Obtain Authorization 07/27/2021 1 1 Encounter Details Date Type Department Care Team (Latest Contact Info) Description 07/27/2021 12:19 EST - 07/27/2021 23:59 EST Hospital Encounter [facility] Secondary [place] Discharge Disposition: Home [...] on filedocumented in this encounter Care Teams Property Accountant Relationship Specialty Start Date End Date Jovani Wharton DO [address] [place] [address] PCP - General 10/11/16 10/17/21 documented as of this encounter
--- OUTSIDE RECORDS SUMMARY | 2024-02-18 09:31 | XMS_ITS | Encounter Summary ---
Author Organization [facility] Address [address] [place] [address] Care Team Providers Care Embroidery Worker Name Role Phone Jorge Chauhan MD Primary Care Provider Reason for Visit * Reason Onset Date Comments Pre-visit Orders 10/20/2021 Labs Only 10/20/2021 Encounter Details Date Type Department Care Team (Late st Contact Info) Description 10/20/2021 Telephone [facility] General Surgery - [facility] [address] [place], [place] [phone] Ollie Lee MD [address] [facility], [address] [place] [address] Pre-visit Orders; Labs Only Social [...] EDT Fax patient's orders to fax # [phone] as patient has an appointment today. documented in this encounter Plan of Treatment Not on file documented as of this encounter Visit Diagnoses Not on filedocumented in this encounter Care Teams Embroidery Worker Relationship Specialty Start Date End Date Jorge Chauhan MD [address] [place] [address] PCP - General Family Medicine - Primary Care 10/18/21 11/22/21 documented as of this encounter
--- OUTSIDE RECORDS SUMMARY | 2024-02-18 09:31 | XMS_ITS | Encounter Summary ---
Author Organization [facility] Address [address] [place] [address] Care Team Providers Care Wound Care Nurse Name Role Phone Jovani Wharton DO Primary Care Provider +1- [phone] Encounter Details Date Type Department Care Team [...] on filedocumented in this encounter Care Teams Wound Care Nurse Relationship Specialty Start Date End Date Jovani Wharton DO [address] [place] [address] PCP - General 10/11/16 10/17/21 documented as of this encounter
--- OUTSIDE RECORDS SUMMARY | 2024-02-18 09:31 | XMS_ITS | Encounter Summary ---
Author Organization [facility] Address [address] [place] [address] Care Team Providers Care Poker Prop Player Name Role Phone Jorge Chauhan MD Primary Care Provider Luis Lauren MD Primary Care Provider +1 -[phone] Slade Tran MD Primary Care Provider [phone] Encounter Details Date Type Department Care Team (Late st Contact Info) Description 10/21/2021 Lab Requisition [facility] Pathology & Laboratory Medicine - [facility] [address] [place], [place] [address] Outr Resulting Lab, Provider Social History Tobacco [...] AND ANTIBODY, 4TH GENERATION (10/20/2021 16:02 EDT) [facility] HIV 1 and 2 Antibody/p24 Antigen, 4th Generation Negative Negative 10/23/2021 11:00 EDT [facility] Comment:If acute HIV-1 infec tion is suspected in a high risk patient, submit plasma specimen for HIV-1 RNA quantitation test. Blood VENOUS BLOOD / Unknown 10/20/2021 16:02 EDT 10/21/2021 22:12 EDT Narrative [facility] - 10/23/2021 11:00 EDT Fourth Generation assay performed on the Siemens Centaur XPT. Provider Outr Resulting Lab IMMUNOLOGY A ND SEROLOGY ORDERABLES [facility] [address] [place] [address] documented in this encounter Visit Diagnoses Not on filedocumented in this encounter Care Teams Poker Prop Player Relationship Specialty Start Date End Date Jorge Chauhan MD [address] [place] [address] PCP - General Family Medicine - Primary Care 10/18/21 11/22/21 Luis Lauren MD [address] [place] [address] PCP - General Family Medicine - Primary Care 11/23/21 11/11/22 Slade Tran MD [address] [place] [address] PCP - General 11/12/22 documented as of this encounter
--- OUTSIDE RECORDS SUMMARY | 2024-02-18 09:31 | XMS_ITS | Encounter Summary ---
Author Organization [facility] Address [address] [place] [address] Care Team Providers Care Wafer Polishing Lead Worker Name Role Phone Jorge Chauhan MD Primary Care Provider Encounter Details Date Type Department Care Team (Late st Contact Info) Description 10/24/2021 Abstract [facility] General Surgery - [address] [address] Ollie Lee MD [address] [place] [address], [address] [place] [address] Social History Tobacco Use Types [...] on filedocumented in this encounter Care Teams Wafer Polishing Lead Worker Relationship Specialty Start Date End Date Jorge Chauhan MD [address] [place] [address] PCP - General Family Medicine - Primary Care 10/18/21 11/22/21 documented as of this encounter
--- OUTSIDE RECORDS SUMMARY | 2024-02-18 09:31 | XMS_ITS | Encounter Summary ---
Author Organization [facility] Address [address] [place] [address] Care Team Providers Care Sales Expert Name Role Phone Jovani Wharton DO Primary Care Provider +1- [phone] Encounter Details Date Type Department Care Team (Latest Contact Info) Description 07/31/2021 - 07/31/2021 18:57 EST Hospital Encounter [facility] Secondary Reads [place] Discharge [...] on filedocumented in this encounter Care Teams Sales Expert Relationship Specialty Start Date End Date Jovani Wharton DO [address] [place] [address] PCP - General 10/11/16 10/17/21 documented as of this encounter
--- OUTSIDE RECORDS SUMMARY | 2024-02-18 09:31 | XMS_ITS | Encounter Summary ---
Author Organization [facility] Address [address] [place] [address] Care Team Providers Care Vegetable Farmworker Name Role Phone Jorge Chauhan MD Primary Care Provider Encounter Details Date Type Department Care Team (Late st Contact Info) Description 10/20/2021 Orders Only [facility] General Surgery - [facility] [place] [address] [place] [address] Elena Mayorga RN [address] [place] [address] Paraesophageal hernia (Primary Dx) Social History Tobacco [...] gangrene documented in this encounter Care Teams Vegetable Farmworker Relationship Specialty Start Date End Date Jorge Chauhan MD [address] [place] [address] PCP - General Family Medicine - Primary Care 10/18/21 11/22/21 documented as of this encounter
--- OUTSIDE RECORDS SUMMARY | 2024-02-18 09:32 | XMS_ITS | Encounter Summary ---
Author Organization [facility] Address [address] [place] [address] Care Team Providers Care Central Control Room Operator Name Role Phone Jovani Wharton DO Primary Care Provider +1- [phone] Encounter Details Date Type Department Care Team (Latest Contact Info) Description 09/12/2018 15:00 EDT - 09/12/2018 23:59 EDT Hospital Encounter [address] [address] Unknown, Provider, Discharge Disposition: Home or Self [...] or Self Retirement documented in this encounter Plan of Treatment Not on file documented as of this encounter Visit Diagnoses Not on filedocumented in this encounter Care Teams Central Control Room Operator Relationship Specialty Start Date End Date Jovani Wharton DO [address] [place] [address] PCP - General 10/11/16 10/17/21 documented as of this encounter
--- OUTSIDE RECORDS SUMMARY | 2024-02-18 09:32 | XMS_ITS | Encounter Summary ---
Author Organization [facility] [place] [place] [address] Care Team Providers Care Septic Tank Cleaner Name Role Phone Govind Mendes Primary Care Provider + Encounter Details Date Type Department Care Team (Late st Contact Info) Description 11/29/2023 Orders [place] [address] Lawrence Gar MD [facility] [place] [address] Sharma's esophagus with dysplasia (Primary Dx) Social [...] Department Care Team (Latest Contact Info) Description 04/06/2024 9:30 AM EST Hospital Encounter [place] [phone] Lawrence Gar MD [facility] [place] [address] 04/06/2024 9:30 AM EST - 04/06/2024 10:00 AM EST Surgery [place] [address] Lawrence Gar MD [facility] [place] [address] EGD, UPPER GI ENDOSCOPY (WRVU 2.09) 05/06/2024 9:00 AM EST Office Visit Nephrology [place] [address] Jovani Richardson MD [facility] [place] [address] A, Nurse Clinician None 11/17/2024 4:20 PM EDT Office Visit [place] [address] Lawrence Gar MD [facility] [place] [address] Scheduled Orders Name Type Priority Associated Diagnoses Orde r Schedule ENDOSCOPY CASE REQUEST: EGD, UPPER GI ENDOSCOPY (WRVU 2.09) Procedures Routine Sharma's esophagus with dysplasia Ordered: 11/29/2023 Scheduled Procedures Name Priority Associated Diagnoses Date/Ti me EGD, UPPER GI ENDOSCOPY (WRVU 2.09) Sharma's esophagus with high grade dysplasia 04/06/2024 9:30 AM EST documented as of this encounter Visit Diagnoses Diagnosis Sharma's esophagus with dysplasia- Primary Sharma's esophagus Sharma's esophagus with high grade dysplasia Sharma's esophagus documented in this encounter Care Teams Septic Tank Cleaner Relationship Specialty Start Date End [place] [address] PCP - General Internal Medicine 11/06/23 documented as of this encounter
--- OUTSIDE RECORDS SUMMARY | 2024-02-18 09:32 | XMS_ITS | Encounter Summary ---
[place] [address] Care Team Providers Care Haul Cane Brakeman Name Role Phone Govind Mendes Primary Care Provider + Encounter Details Date Type Department Care Team (Late st Contact Info) Description 01/08/2024 [place]phone [place] [phone] Clarissa Zamudio, RN Social History Tobacco Use [...] Miscellaneous Notes * Telephone Encounter - Clarissa Zamudio, RN - 01/08/2024 1:00 PM EDT Incoming VM from Mathew regarding portal message from 01/05, he is hoping for recommendations from Dr Gar regarding discomfort that continues. Forwarded documented in this encounter Plan of Treatment Upcoming Encounters Date Type Department Care Team (Latest Contact Info) Description 04/06/2024 9:30 AM [facility] Hospital En[place] [phone] Lawrence Gar MD [facility] [place] [address] 04/06/2024 9:30 AM EST - 04/06/2024 10:00 AM EST Surgery Gastroenterology at [place] [phone] Lawrence Gar MD [facility] [place] [address] EGD, UPPER GI ENDOSCOPY (WRVU 2.09) 05/06/2024 9:00 AM EST Office Visit [place] [address] Jovani Richardson MD [facility] [place] [address] A, Nurse Clinician None 11/17/2024 4:20 PM EDT Office Visit Gastroenterology at [place] [phone] Lawrence Gar MD [facility] [place] [address] Scheduled Procedures Name Priority Associated Diagnoses Date/Ti me EGD, UPPER GI ENDOSCOPY (WRVU 2.09) Sharma's esophagus with high grade dysplasia 04/06/2024 9:30 AM EST documented as of this encounter Visit Diagnoses Not on filedocumented in this encounter Care Teams Haul Cane Brakeman Relationship Specialty Start Date End Date Govind Mendes [place] [facility] [place] [address] PCP - General Internal Medicine 11/06/23 documented as of this encounter
--- OUTSIDE RECORDS SUMMARY | 2024-02-18 09:32 | XMS_ITS | Encounter Summary ---
Author Organization [facility] [place] [address] Care Team Providers Care Stone Grader Name Role Phone Govind Mendes Primary Care [...] 2.09) COLONOSCOPY,SCREENING (WRVU 3.26) Lawrence Gar MD [facility] [place] [address] [facility] Referral ID Status Reason Start Date Expiration Date Visits Re quested Visits Authorized [id number] 1 1 Encounter Details Date Type Department Care Team (Late st Contact Info) Description 11/12/2023 10:46 AM EDT Anesthesia Event [place] [address] Mathew Tripathi MD [facility] [place] [address] Anesthesia Record Procedure Summary Procedure Name Responsible [...] Type Details Placement Removal PIV 11/12/23; 1018; [id number] catheter system; 22 gauge; median vein (underside [...] Procedure Summary Date: 11/12/23 Room / Location: [facility] 3 / [facility] Anesthesia Start: 1046 Anesthesia Stop: 1130 Procedures: EGD WITH BIOPSY (WRVU 2.39) (Trunk) COLONOSCOPY, POLYPECTOMY, REMOVAL LESION BY SNARE (WRVU 4.57) (Trunk) Diagnosis: (3 year) Surgeons: Lawrence Gar MD Responsible Provider: Mathew Tripathi MD Anesthesia Type: MAC ASA Status: 3 All Anesthesia Providers: Anesthesiologist: Mathew Tripathi MD NAIL TECH: Dominguez Cullen CRNA Vitals Value Taken Time BP 126/84 11/12/23 1158 Temp Pulse Resp 15 11/12/23 1158 SpO2 97 % 11/12/23 1200 Pain Level 0 11/12/23 1158 Vitals shown include unfiled device data. Patient Location: PACU/[facility] Level of Consciousness: Awake and Alert [...] 4:05 PM EDT Pre-Anesthesia Evaluation for: Mathew Mendze a 68 y.o. male. Procedure(s): EGD, UPPER [...] 4.67) performed by Lawrence Gar MD at [facility] END[facility] ??? PRO UPPER GI ENDOSCOPY, BIOPSY N/A 10/20/2020 EGD WITH BIOPSY (WRVU 2.49) performed by Lawrence Gar MD at [facility] Social History Tobacco Use ??? Smoking [...] risks discussed with patient. Plan discussed with NAIL TECH. Anesthesia Screening documented in this encounter Plan of Treatment Upcoming Encounters Date Type Department Care Team (Latest Contact Info) Description 04/06/2024 9:30 AM EST Hospital Encounter [place] [address] Lawrence Gar MD [facility] [place] [address] 04/06/2024 9:30 AM EST - 04/06/2024 10:00 AM EST Surgery [place] [phone] Lawrence Gar MD [facility] [place] [address] EGD, UPPER GI ENDOSCOPY (WRVU 2.09) 05/06/2024 9:00 AM EST Office Visit Nephrology [place] [phone] Jovani Richardson MD [facility] [place] [address] A, Nurse Clinician None 11/17/2024 4:20 PM EDT Office Visit [place] [address] Lawrence Gar MD [facility] [place] [address] Scheduled Procedures Name Priority Associated Diagnoses Date/Ti [...] mg documented in this encounter Care Teams Stone Grader Relationship Specialty Start Date End Date Govind Mendes [place] [address] PCP - General Internal Medicine 11/06/23 documented as of this encounter
--- OUTSIDE RECORDS SUMMARY | 2024-02-18 09:32 | XMS_ITS | Encounter Summary ---
Author Organization [facility] Address [address] [place] [address] Care Team Providers Care Regional Vice President Surgical Sales Name Role Phone Jovani Wharton DO Primary Care Provider +1- [phone] Jorge Chauhan MD Primary Care Provider Luis Lauren MD Primary Care Provider +1 -[phone] Slade Tran MD Primary Care Provider [phone] Encounter Details Date Type Department Care Team (Late st Contact Info) Description 03/03/2021 Lab Requisition [facility] Pathology & Laboratory Medicine - [facility] [address] [place], [place] [phone] Outr Resulting Lab, Provider Social History Tobacco [...] MICROBIOLOGY - GENERAL ORDERABLES Performing Organization Address City/[facility]/ZIP Co de Phone Number [facility] [address] [place] [address] * COVID-19 TESTING (03/02/2021 13:41 EDT) COVID-19 rt-PCR Result Negative Negative 03/04/2021 11:36 EDT [facility] Comment: This test has [...] performed using the shama SARS-CoV-2 assay ([employer] on the Shama 6800 System Performing Lab Shama [address] [facility] 03/04/2021 11:36 EDT [facility] Swab 03/02/2021 13:4 1 EDT 03/03/2021 16:26 EDT Provider Outr Resulting Lab MICROBIOLOGY - GENERAL ORDERABLES [facility] [address] [place] [address] documented in this encounter Visit Diagnoses Not on filedocumented in this encounter Care Teams Regional Vice President Surgical Sales Relationship Specialty Start Date End Date Jovani Wharton DO [address] [place] [address] PCP - General 10/11/16 10/17/21 Jorge Chauhan MD [address] [place], [place] [address] PCP - General Family Medicine - Primary Care 10/18/21 11/22/21 Luis Lauren MD [address] [place], [place] [id number] PCP - General Family Medicine - Primary Care 11/23/21 11/11/22 Slade Tran MD [address] [place], [place] [address] [address] PCP - General 11/12/22 documented as of this encounter
--- OUTSIDE RECORDS SUMMARY | 2024-02-18 09:32 | XMS_ITS | Encounter Summary ---
Author Organization [facility] [place] [address] Care Team Providers Care Clin Application Specialist Name Role Phone Govind Mendes Primary Care Provider + Encounter Details Date Type Department Care Team (Late st Contact Info) Description 02/03/2024 Telephone Nephrology [place] [address] Karol Iverson RN Social History [...] Telephone Encounter - Karol Iverson RN - 02/03/2024 10:33 AM EDT LM for patient to discuss scheduling options documented in this encounter Plan of Treatment Upcoming Encounters Date Type Department Care Team (Latest Contact Info) Description 04/06/2024 9:30 AM [facility] Hospital Encounter [place] [address] Lawrence Gar MD [facility] [place] [address] 04/06/2024 9:30 AM EST - 04/06/2024 10:00 AM EST Surgery Gastroenterology at [place] [phone] Lawrence Gar MD [facility] [place] [address] EGD, UPPER GI ENDOSCOPY (WRVU 2.09) 05/06/2024 9:00 AM EST Office Visit Nephrology Hypertension at [place] [phone] Jovani Richardson MD [facility] [place] [address] A, Nurse Clinician None 11/17/2024 4:20 PM EDT Office Visit [place] [address] Lawrence Gar MD [facility] [place] [address] Scheduled Procedures Name Priority Associated Diagnoses Date/Ti me EGD, UPPER GI ENDOSCOPY (WRVU 2.09) Sharma's esophagus with high grade dysplasia 04/06/2024 9:30 AM EST documented as of this encounter Visit Diagnoses Not on filedocumented in this encounter Care Teams Clin Application Specialist Relationship Specialty Start Date End Date Govind Mendes PA [facility] [place] [address] PCP - General Internal Medicine 11/06/23 documented as of this encounter
--- OUTSIDE RECORDS SUMMARY | 2024-02-18 09:32 | XMS_ITS | Clinical Summary ---
Author Organization [facility] Address [facility] [place] [address] Care Team Providers Care Impregnation Operator Name Role Phone Govind Mendes Primary [...] Take 1 tablet by mouth daily. Active calciTRIoL (Rocaltrol) 0.25 mcg capsule Take 1 capsule by mouth daily. 90 capsule 3 11/07/2023 Active omeprazole (PriLOSEC) [address] capsule Take 1 capsule by mouth 2 times daily. 180 capsule 3 01/02/2024 Active lisinopriL (Zestril) 20 mg tablet Take 1 tablet by mouth daily. 90 tablet 3 02/06/2024 Active Active Problems Problem Noted Date Diagnosed [...] (08/09/2020): Added automatically from request for surgery [id number] Screen for colon cancer 08/09/2020 Overview (08/09/2020): Added automatically from request for surgery [id number] Gastroesophageal reflux disease 08/09/2020 Overview (08/09/2020): Added automatically from request for surgery [id number] Gastroesophageal reflux disease with esophagitis 09/24/1995 Encounters Date Type Department Care Team Description 02/07/2024 Telephone Neph[place] [address] Karol Iverson, LOYD 02/05/2024 Orders Only Nephrology [place] [address] Karol Iverson, RN 02/03/2024 Telephone Nephrology [place] [address] Karol Iverson, LOYD 01/08/2024 Telephone Gastroenterology at [place] [address] Clarissa Zamudio, LOYD 01/02/2024 7:57 AM EDT Anesthesia Event Gastroenterology at [place] [address] Dennis Peguero MD Mathew-Rohaly, Shybi, CYRUS 01/02/2024 7:30 AM EDT - 01/02/2024 8:30 AM EDT Surgery Gastroenterology at [place] [phone] Lawrence Gar MD EGD,WITH ABLATION OF TUMOR OR OTHER LESION (WRVU 3.49) 01/02/2024 6:26 AM EDT - 01/02/2024 9:33 AM EDT Hospital Encounter [place] [address] Lawrence Gar MD 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) Discharge Disposition: Home 12/20/2023 Telephone Nephrology [place] [address] Lizet Hayward RN 12/11/2023 Telephone Nephrology [place] [address] Karol Iverson, LOYD 12/11/2023 External Results Nephrology Hypertension at [place] [phone] Karol Iverson, LOYD 12/10/2023 Telephone Neph[place] [address] Karol Iverson, LOYD 12/02/2023 Telephone Gastroenterology at [place] [phone] Genevieve Ferrarafer 11/29/2023 Orders [place] [address] Lawrence Gar MD Sharma's esophagus with dysplasia (Primary Dx) 11/26/2023 Ancillary Procedure Radiology Library at [facility] [place] [phone] Polina Duncan MD 11/26/2023 Orders Only Nephrology Hypertension at [place] [phone] Lizet Hayward RN CKD (chronic kidney disease) stage 4, GFR 15-29 ml/min (Primary Dx); Primary hypertension 11/26/2023 Telephone Ne[place] [address] Lizet Hayward RN 11/19/2023 4:40 PM EDT Office Visit Gastroenterology at [place] [phone] Lawrence Gar MD Alcohol-induced chronic pancreatitis; Sharma's esophagus with dysplasia 11/19/2023 Travel from Last 3 Months Immunizations Name Administration Dates Next Due Covid-19 Monovalent (Pfizer Comirnaty purple cap) 12yrs+ (3971-0371) 03/13/2021,08/16/2020,07/25/2020 TD Adult 05/31/2006 Td Adult, Absorbed, [...] Sign Reading Time Taken Comments Blood Pressure 153/90 01/02/2024 9:00 AM EDT Pulse 61 01/02/2024 7:05 AM EDT Temperature 36.6 ??C (97.9 ??F) 01/02/2024 8:25 AM ED T Respiratory Rate 16 01/02/2024 9:00 AM EDT Oxygen Saturation 97% 01/02/2024 9:00 AM EDT Inhaled Oxygen Concentration - - Weight 72.8 kg (160 lb 6.4 oz) 11/19/2023 4:42 P M EDT Height 167.6 cm (5' 6) 11/19/2023 4:42 PM EDT Body Mass Index 25.89 11/19/2023 4:42 PM EDT Plan of Treatment Upcoming Encounters Date Type Department Care Team (Latest Contact Info) Description 04/06/2024 9:30 AM EST Hospital Encounter Gastroenterology at [place] [phone] Lawrence Gar MD [facility] [place] [address] 04/06/2024 9:30 AM EST - 04/06/2024 10:00 AM EST Surgery [place] [phone] Lawrence Gar MD [facility] [place] [address] EGD, UPPER GI ENDOSCOPY (WRVU 2.09) 05/06/2024 9:00 AM EST Office Visit Ne[place] [phone] Jovani Richardson MD [facility] [place] [address] A, Nurse Clinician None 11/17/2024 4:20 PM EDT Office [place] [address] Lawrence Gar MD [facility] DR [place] [address] Scheduled Procedures Name Priority Associated Diagnoses Date/Ti me EGD, UPPER GI ENDOSCOPY (WRVU 2.09) Sharma's esophagus with high grade dysplasia 04/06/2024 9:30 AM EST Health Maintenance Due Date Last Done Comments CT Colonography 1955 FIT DNA 1955 FIT 1955 Sigmoidoscopy 1955 Pneumoccocal Vaccine: 65+ (1 of 2 - PCV) 1960 Hepatitis C Screening 1972 Lipid Screening 1972 Zoster vaccine (2 of 3) 08/19/2018 06/24/2018, 04/15 Covid-19 Vaccine (6 - 2022-2 4 season) 2024 03/15/2023, 04/03/2022, 03/13/2021, Additional history exists Influenza (Flu) vaccine (1 o f 1 - Influenza standard series) 01/26/2024 Tetanus/Diphtheria/Pertussis Vaccines (3 - Td or Tdap) 08/20/2026 08/20/2016, 08/20/2016, 05/31/2006, Additional history exists Diabetes Screening (HgbA1C o r Glucose) 12/09/2026 12/10/2023, 11/06/2023, 09/23/2023, Additional history exists Colonoscopy 11/11/2028 11/12/2023, 10/25, 10/20/2020, Additional history exists Colorectal Cancer Screening 11/11/2028 Sigmoidoscopy (10 year) with FIT yearly 11/11/2033 11/12/2023, 11/12/2023, 10/20/2020, Additional history exists Procedures Procedure Name Priority Date/Time Associated Diagnosis Comments RADIOFREQUENCY ABLATION 01/02/20 7:57 AM EDT Sharma's esophagus with dysplasia Esophagoscopy Flexible Transoral Lesion Ablation (24387) 01/02/2024 7:57 AM EDT Sharma's esophagus with dysplasia UPPER GI ENDOSCOPY Routine 01/02/2024 7: 26 AM EDT LAB SCAN 12/10/2023 12:00 AM EDT BASIC METABOLIC PANEL Routine 12/10/2023 FILM LIBRARY STORAGE ONLY DX SHOULDER Routine 11/26/2023 12:00 AM EDT COLONOSCOPY Routine 11/12/2023 10:27 AM EDT from Last 3 Months or Most Recently Relevant to Health Maintenance Results * UPPER GI ENDOSCOPY (01/02/2024 7:26 AM EDT) [facility] UPPER GI ENDOSCOPY [facility] ___ Procedure Date: 01/02/2024 7:26 AM ? Patient Name: Mathew Mendez ? N: [id number] ? Date of : 1955 ? Age: 68 ? Order #: [id number] ? Instrument Name: [id number] ? ___ Procedure: ? Upper GI endoscopy Indications: ? Sharma's esophagus with high grade ? dysplasia Providers: ? Lawrence Gar MD, Colette ? Alicia Navarrete MD: ?Govind Haddad: ? Propofol per Anesthesia [...] procedure based ? on age 65 or older, severe ? comorbidity (greater than ASA Grade ? II) and prolonged procedure ? requiring deep sedation. ? The procedure, indications, ? benefits, risks [...] changes suspicious for ? short-segment Sharma's esophagus. These changes ? involved the mucosa at the upper extent of the ? gastric folds (39 cm from the incisors) extending to ? the Z-line (36 cm from the incisors). No visible ? abnormalities were present. The maximum longitudinal ? extent of these esophageal mucosal changes was 3 cm ? in length (C0M3). Focal radiofrequency ablation of ? Sharma's esophagus was performed. With the endoscope ? in place, the position and extent of the Sharma's ? mucosa and the anatomic landmarks including proximal ? and distal extent of Sharma's mucosa were noted. ? Endoscopic visualization identified an ablation site ? including the entire visible Sharma's segment. The ? Sharma's mucosa was irrigated with water. Gastric ? and esophageal contents were suctioned. The endoscope ? was then removed from the patient. The Barrx-90 ? radiofrequency ablation catheter was attached to the ? tip of the endoscope. The endoscope with the attached ? radiofrequency ablation catheter was then passed ? transorally under direct vision into the esophagus ? and advanced to the areas of Sharma's mucosa. The ? areas included tongues and circumferential areas of ? Sharma's mucosa. The radiofrequency ablation ? catheter was placed in contact with the surface of ? the Sharma's mucosa under direct visualization and ? energy was applied twice at 12 J/cm2. Ablation was ? repeated in a likewise fashion to treat the entire ? area of suspected Sharma's mucosa (11 double hits). ? The ablation zone was cleaned of coagulative debris. ? The ablation catheter and endoscope were then removed ? and the catheter was cleaned. The catheter and ? endoscope were reinserted into the esophagus. A ? second round of ablation was then performed. Energy ? was applied twice at 12 J/cm2 to retreat the areas of ? Sharma's epithelium that had been treated with the ? first series of ablation (11 additional double hits). ? The areas of the esophagus where Sharma's mucosa had ? been ablated were examined. Areas of Sharma's ? esophagus were completely ablated. ? Evidence of a prior Mihir fundoplication was found ? in the cardia. This was characterized by healthy ? appearing mucosa. ? One small cratered gastric ulcer with no stigmata of ? bleeding was found in the prepyloric region of the ? stomach. The lesion was 5 mm in largest dimension. ? The stomach was normal. ? Otherwise normal stomach including retroflex view of ? cardia and fundus. ? The examined duodenum was normal. ? Moderate Sedation: ? Not applicable - See Anesthesia documentation Impression: ?- Esophageal mucosal changes ? suspicious for short-segment ? Sharma's esophagus. Treated with ? radiofrequency ablation. ? - A Mihir fundoplication was ? found, characterized by healthy ? appearing mucosa. ? - Small benign appearing ? pre-pyloric gastric ulcer with no ? stigmata of bleeding. ? - Normal stomach. ? - Normal examined duodenum. ? - No specimens collected. Recommendation: ?- Observe patient's clinical course. ? - Full liquid diet x 24 hours, then ? soft diet for 7-10 days. ? - Double dose PPI. ? - May use pain medication as needed. ? - Repeat upper endoscopy in 3 ? months for follow-up of Sharma's ? ablation and to assess healing of ? small ulcer and check for H. pylori. ? Attending Participation: ? I personally performed the entire procedure. ? Lawrence Gar MD 01/02/2024 8:33:39 AM This report has been signed electronically. Number of Addenda: 0 Note Initiated On: 01/02/2024 7:26 AM PROVATION 01/02/2024 7:26 AM EDT Govind ROBERTS GENERAL SURGICAL ORDERABLES PROVATION * Scan Doc: Lab (12/10/2023 12:00 AM EDT) Narrative 12/10/2023 12:00 AM EDT Ordered by an unspecified provider. Scanning Provider MEDIA MGR SCAN EXT O RDR/RSLT * Basic Metabolic Panel (non-fasting) (12/10/2023) Glucose 95 Blood Urea Nitrogen 61 Creatinine 4.4 Est Glomerular Filtration Rate 13.77 Sodium 142 Potassium 5.1 Chloride 109 Carbon Dioxide 19 Calcium 8.6 Blood 12/10/2023 Historical Provider CHEMISTRY ORDERAB LES * Film Library- Storage Only DX Shoulder (11/26/2023 12:00 AM EDT) Narrative [facility] - 02/05/2024 3:03 AM EDT This exam is auto-finalizing. It's purpose is for storage only. Polina Duncan MD IMG FILM LIBRARY ORD ERABLES Performing Organization Address [facility] Co de Phone Number [place], [place] * COLONOSCOPY (11/12/2023 10:27 AM EDT) COLONOSCOPY [facility] ___ Procedure Date: 11/12/2023 10:27 AM ? Patient Name: Mathew Mendez ? Date of : 1955 ? Age: 68 ? Order #: [id number] ? Instrument Name: [id number] ? ___ Procedure: ? Colonoscopy Indications: ? [...] ? was evaluated using the BBPS ? ([place] Bowel Preparation Scale) ? with scores of: [...] Tran MD GENERAL SURGICAL ORD ERABLES PROVATION from Last 3 Months or Most Recently Relevant to Health Maintenance Advance Directives Documents on File Type Date Recorded Patient Pad Tufter Expl anation Advance Directives and Livin g Will 07/26/2010 8:58 AM Care Teams Impregnation Operator Relationship Specialty Start Date End Date Govind Mendes PA [address] [place], [place] [address] PCP - General Internal Medicine 11/06/23
--- OUTSIDE RECORDS SUMMARY | 2024-02-18 09:32 | XMS_ITS | Encounter Summary ---
Author Organization [facility] Address [address] [place] [address] Care Team Providers Care Textile Engineer Name Role Phone Unavailable Primary Care Provider Unavailabl e Encounter Details Date Type Department Care Team (Late st Contact Info) Description 09/24/2007 Results Only [facility] - Maple conversion [address] [place] [address] Jovani Wharton, DO [address] [place], [place] [address] Social History Tobacco Use Types Packs/Day Years [...] ? MATHEW LINK ? Accession #: ? [id number] ? : ? 1955 (Age: 52) ??M [...] concomitant vacuolar change and keratinocyte necrosis. ??(Dr. Walton)/[facility] Document reviewed and electronically signed by: DIMITRI [...] is submitted intact in one cassette. ??(Lisset Gorman)/[facility] End of Report JACOBO RODGERS 09/24/2007 09/24/2007 17: 40 EDT Jovani Wharton DO PATHOLOGY ORDERABL ES [facility] [address] [place] [address] documented in this encounter Visit Diagnoses Not on filedocumented in this encounter
--- OUTSIDE RECORDS SUMMARY | 2024-02-18 09:32 | XMS_ITS | Encounter Summary ---
Author Organization [facility] Address [address] [place] [address] Care Team Providers Care Statistician Applied Name Role Phone DioJovani liu Michel Primary Care Provider [phone] Reason for Visit * (Routine/Next Available) - Receiving Office to Obtain Authorization Specialty Diagnoses / Procedures Referred By Devaughn bobo Referred To Contact Procedures CT OUTSIDE IMAGES BODY Imaging, External Referral ID Status Reason Start Date Expiration Date Visits Requested Visits Authorized [id number] Receiving Office to Obtain Authorization 07/23/2021 1 1 Encounter Details Date Type Department Care Team (Latest Contact Info) Description 07/23/2021 21:40 EST - 07/23/2021 23:59 EST Hospital Encounter [facility] Secondary [place] Discharge Disposition: Home or [...] on filedocumented in this encounter Care Teams Statistician Applied Relationship Specialty Start Date End Date Jovani Wharton DO [address] [place] [address] PCP - General 10/11/16 10/17/21 documented as of this encounter
--- OUTSIDE RECORDS SUMMARY | 2024-02-18 09:32 | XMS_ITS | Encounter Summary ---
Author Organization [facility] Address [facility] [place] [address] Care Team Providers Care Turkey Boner Name Role Phone Govind Mendes Primary Care Provider + Encounter Details Date Type Department Care Team (Late st Contact Info) Description 11/19/2023 4:40 PM EDT Office [place] [address] Lawrence Gar MD [facility] [place] [address] Alcohol-induced chronic pancreatitis; Sharma's esophagus with dysplasia [...] Sharma's and colon polyps. Lawrence Gar MD financial adviser Director, GI Endoscopy Section of Gastroenterology [place] [address] Cc:[place] [address] documented in this encounter Plan of Treatment Upcoming Encounters Date Type Department Care Team (Latest Contact Info) Description 04/06/2024 9:30 AM EST Hospital Encounter Gastroenterology at [place] [phone] Lawrence Gar MD [facility] [place] [address] 04/06/2024 9:30 AM EST - 04/06/2024 10:00 AM EST Surgery Gastroenterology at [address] Lawrence Gar MD [facility] [place] [address] EGD, UPPER GI ENDOSCOPY (WRVU 2.09) 05/06/2024 9:00 AM EST Office Visit Nephrology Hypertension at [place] [address] Jovani Richardson MD [facility] [place] [address] A, Nurse Clinician None 11/17/2024 4:20 PM EDT Office Visit Gastroenterology at [place] [phone] Lawrence Gar MD [facility] [place] [address] Scheduled Procedures Name Priority Associated Diagnoses Date/Ti me EGD, UPPER GI ENDOSCOPY (WRVU 2.09) Sharma's esophagus with high grade dysplasia 04/06/2024 9:30 AM EST documented as of this encounter Visit Diagnoses Diagnosis Alcohol-induced chronic pancreatitis Chronic pancreatitis Sharma's esophagus with dysplasia Sharma's esophagus Sharma's esophagus with high grade dysplasia Sharma's esophagus documented in this encounter Care Teams Turkey Boner Relationship Specialty Start Date End Date Govind Mendes PA [facility] [place] [address] PCP - General Internal Medicine 11/06/23 documented as of this encounter
--- OUTSIDE RECORDS SUMMARY | 2024-02-18 09:32 | XMS_ITS | Encounter Summary ---
Author Organization [facility] [place] [address] Care Team Providers Care Marketing Effectiveness Manager Name Role Phone Govind Mendes Primary Care Provider + Encounter Details Date Type Department Care Team (Late st Contact Info) Description 11/26/2023 Orders Only Nephrology [place] [phone] Lizet Hayward RN CKD (chronic kidney disease) [...] 9:30 AM EST Hospital Encounter [place] [phone] Lawrence Gar MD [facility] [place] [address] 04/06/2024 9:30 AM EST - 04/06/2024 10:00 AM EST Surgery [place] [address] Lawrence Gar MD [facility] [place] [address] EGD, UPPER GI ENDOSCOPY (WRVU 2.09) 05/06/2024 9:00 AM EST Office Visit Nephrology Hypertension at [address] Jovani Richardson MD [facility] [address] A, Nurse Clinician None 11/17/2024 4:20 PM EDT Office Visit [place] [address] Lawrence Gar MD [facility] [place] [address] Scheduled Orders Name Type Priority Associated Diagnoses [...] hypertension Unspecified essential hypertension Sharma's esophagus with high grade dysplasia Sharma's esophagus documented in this encounter Care Teams Marketing Effectiveness Manager Relationship Specialty Start Date End Date Govind [place] [address] PCP - General Internal Medicine 11/06/23 documented as of this encounter
--- OUTSIDE RECORDS SUMMARY | 2024-02-18 09:32 | XMS_ITS | Encounter Summary ---
[place] [address] Care Team Providers Care Food Service Worker Name Role Phone Govind Mendes Primary Care Provider + Encounter Details Date Type Department Care Team (Late st Contact Info) Description 02/07/2024 Telephone Nephrology [place] [address] Karol Iverson RN Social History Tobacco Use [...] Telephone Encounter - Karol Iverson RN - 02/07/2024 9:16 AM EDT S/O: Call to Mathew to discuss scheduling options as Dr Richardson has no available appointments at this time. Mathew was offered an appointment with a different provider but he would prefer sticking with [facility]. Mathew's blood pressure has been higher than usual in the setting of constant 7/10 shoulder pain. Recent blood pressures have been 160/90, 151/91, 163/90, 157/92. At his last appointment, his lisinopril dose was increased to 20 mg daily due to hypertension. He is also taking metoprolol 50 mg daily and amlodipine 2.5 mg daily. A: Based on recent kidney function, anesthesia at [facility] wants him to have shoulder replacement at [facility] and he is waiting for [facility] to set up surgery P: Above sent to Dr Richardson for review and recommendation documented in this encounter Plan of Treatment Upcoming Encounters Date Type Department Care Team (Latest Contact Info) Description 04/06/2024 9:30 AM EST Hospital Encounter [place] [address] Lawrence Gar MD [facility] [place] [address] 04/06/2024 9:30 AM EST - 04/06/2024 10:00 AM EST Surgery [place] [phone] Lawrence Gar MD [facility] [place] [address] EGD, UPPER GI ENDOSCOPY (WRVU 2.09) 05/06/2024 9:00 AM EST Office Visit Nephrology [place] [phone] Jovani Richardson MD [facility] [place] [address] A, Nurse Clinician None 11/17/2024 4:20 PM EDT Office Visit [place] [address] Lawrence Gar MD [facility] [place] [address] Scheduled Orders Name Type Priority Associated Diagnoses Orde r Schedule CBC (with Diff) Lab Routine CKD (chronic kidney disease) stage 5, GFR less than 15 ml/min Expected: 02/07/2024, Expires: 02/06/2025 Basic Metabolic Panel Non-fasting Lab Routine CKD (chronic kidney disease) stage 5, GFR less than 15 ml/min Expected: 02/07/2024, Expires: 08/08/2024 Phosphorus Lab Routine CKD (chronic kidney disease) stage 5, GFR less than 15 ml/min Expected: 02/07/2024, Expires: 02/06/2025 Albumin Level Lab Routine CKD (chronic kidney disease) stage 5, GFR less than 15 ml/min Expected: 02/07/2024, Expires: 02/06/2025 Protein/Creatinine Ratio, urine Lab Routine CKD (chronic kidney disease) stage 5, GFR less than 15 ml/min Expected: 02/07/2024, Expires: 02/06/2025 Ferritin Lab Routine CKD (chronic kidney disease) stage 5, GFR less than 15 ml/min Expected: 02/07/2024, Expires: 02/06/2025 Iron and TIBC Lab Routine CKD (chronic kidney disease) stage 5, GFR less than 15 ml/min Expected: 02/07/2024, Expires: 02/06/2025 Scheduled Procedures Name Priority Associated Diagnoses Date/Ti me EGD, UPPER GI ENDOSCOPY (WRVU 2.09) Sharma's esophagus with high grade dysplasia 04/06/2024 9:30 AM EST documented as of this encounter Visit Diagnoses Diagnosis CKD (chronic kidney disease) stage 5, GFR less than 15 ml/min Chronic kidney disease, Stage V Sharma's esophagus with high grade dysplasia Sharma's esophagus documented in this encounter Care Teams Food Service Worker Relationship Specialty Start Date End Date Govind Mend[place] [address] PCP - General Internal Medicine 11/06/23 documented as of this encounter
--- OUTSIDE RECORDS SUMMARY | 2024-02-18 09:32 | XMS_ITS | Encounter Summary ---
Author Organization [facility] [place] [address] Care Team Providers Care Dimensional Engineer Name Role Phone Govind Mendes Primary Care Provider + Reason for Visit * Auth/Cert (Routine) Specialty Diagnoses / Procedures Referred By Devaughn bobo Referred To Contact Diagnoses Sharma's esophagus with dysplasia For Barrx ablation of HGD Procedures PRO UPPER GI ENDOSCOPY, DIAGNOSTIC PRO UPPER GI ENDOSCOPY, BIOPSY PRO UP GI ENDOSCOPY, REMV TUMOR, SNARE PRO ANES, UGI ENDOSCOPY NOS EGD, UPPER GI ENDOSCOPY (WRVU 2.09) Lawrence Gar MD [facility] [place] [address] [facility] Referral ID Status Reason Start Date Expiration Date Visits Re quested Visits Authorized [id number] 1 1 Encounter Details Date Type Department Care Team (Late st Contact Info) Description 01/02/2024 7:30 AM EDT - 01/02/2024 8:30 AM EDT Surgery [place] [address] Lawrence Gar MD [facility] [place] [address] EGD,WITH ABLATION OF TUMOR OR OTHER LESION (WRVU 3.49) Social History Tobacco Use Types Packs/Day Years [...] Sign Reading Time Taken Comments Blood Pressure 120/77 01/02/2024 8:29 AM EDT Pulse 61 01/02/2024 7:05 AM EDT Temperature 36.6 ??C (97.9 ??F) 01/02/2024 8:25 AM ED T Respiratory Rate 16 01/02/2024 8:29 AM EDT Oxygen Saturation 100% 01/02/2024 8:29 AM EDT Inhaled Oxygen Concentration - - Weight - - Height - - Body Mass Index - - documented in this encounter Discharge Instructions * Discharge Instructions* Annalisa Suarez RN - 01/02/2024 8:22 AM EDT Upper GI Endoscopy: What to Expect [...] the day after the procedure, use an rekf-zez-qfekozj spray to numb your throat. Sucking on [...] occurs, please contact your Doctor. Please call [phone] before 8pm Mon-Fri with problems, questions or concerns. If you call after 8pm or on weekends, call the Hospital at [phone] and ask to speak to the Fisher content editor and the ball mill operator will contact that person for you. When should you call for help? Call [phone] anytime you think you may need emergency [...] After Visit Summary and more online at [email or web address] If you would like to provide feedback [...] cost to you. Content Version: 12.2 ?? [id number] [employer]. Care instructions adapted under license by [facility]. If you have questions about a medical condition or this instruction, always ask your healthcare professional. [employer] disclaims any warranty or liability for your [...] the day after the procedure, use an oiwo-sls-axazujf spray to numb your throat. Sucking on [...] occurs, please contact your Doctor. Please call [phone] before 8pm Mon-Fri with problems, questions or concerns. If you call after 8pm or on weekends, call the Hospital at [phone] and ask to speak to the Fisher content editor and the ball mill operator will contact that person for you. When should you call for help? Call [phone] anytime you think you may need emergency [...] any problems. Where can you learn more? [facility] View your After Visit Summary and more online at [email or web address] If you would like to provide feedback [...] cost to you. Content Version: 12.2 ?? [id number] [employer]. Care instructions adapted under license by [facility]. If you have questions about a medical condition or this instruction, always ask your healthcare professional. [employer] disclaims any warranty or liability for your use of this information. documented in this encounter Medications at Time of Discharge Medication Sig Dispensed Refills Start Date End Date omeprazole (PriLOSEC) [address] capsule Take 1 capsule by mouth 2 times daily. 180 capsule 3 01/02/2024 calciTRIoL (Rocaltrol) 0.25 mcg capsule Take 1 [...] total per month 45 g 3 08/11/2020 lisinopriL (Zestril) 20 mg tablet Take 1 tablet by mouth daily. 90 tablet 3 11/07/2023 02/05/2024 documented as of this encounter Progress Notes * Annalisa Suarez RN - 01/02/2024 9:31 AM EDT Patient alert and oriented, vital signs stable. Reviewed discharge instructions; patient and his spouse, Yen, verbalized understanding. Copy of instruction sheet with contact numbers for questions/concerns. Pain assessment documented. Patient escorted out of department via wheelchair with his . * Cathi Cruz RN - 12/19/2023 7:12 AM EDT Past Medical History: Cardiac History HTN Diabetic History NA TERE uses Cpap COPD/severe asthma NA Any concerns with the ability to lie flat with or without breathing difficulty Home Oxygen NA Psychological NA Co-morbidities Pancreatitis Gastroesophageal reflux Diverticulitis HTN (hypertension) Chronic renal disease Anemia Alcohol-induced chronic pancreatitis Gastroesophageal reflux disease Acute kidney injury superimposed on chronic kidney disease Anemia due to chronic kidney disease Sharma's esophagus Diverticulitis of intestine Exocrine pancreatic insufficiency History of partial surgical removal of colon Hyperparathyroidism due to renal insufficiency Obstructive sleep apnea syndrome Allergy to Cephalosporin and Morphine Current height and weight Wt 160 lb Ht 5'6 BMI > 40 [] IV Drug Abuse Denies Alcohol drinks/week: Denies Recommend IVCS or Anesthesia: MAC Review med instructions for procedure complete Anesthesia education complete If the patient is unable to self-consent, plan of action: Name of the person who can consent Phone number if person not present on the day of the procedure documented in this encounter H&P Notes * Lawrence Gar MD - 01/02/2024 7:57 AM EDT Gastroenterology and Hepatology Pre-Procedure History and Physical Exam Procedure: EGD: Indication: For treatment of Sharma's with HGD. Patient Active Problem List Diagnosis Code Pancreatitis [...] region M75.40 Obstructive sleep apnea syndrome G47.33 EXAM: HEENT: Airway examined, oropharynx clear Mallampati [...] 9:30 AM EST Hospital Encounter [place] [address] Lawrence Gar MD [facility] [place] [address] 04/06/2024 9:30 AM EST - 04/06/2024 10:00 AM EST Surgery [place] [phone] Lawrence Gar MD [facility] [place] [address] EGD, UPPER GI ENDOSCOPY (WRVU 2.09) 05/06/2024 9:00 AM EST Office Visit Nephrology [place] [phone] Jovani Richardson MD [facility] [place] [address] A, Nurse Clinician None 11/17/2024 4:20 PM EDT Office Visit [place] [address] Lawrence Gar MD [facility] [place] [address] Scheduled Orders Name Type Priority Associated Diagnoses Orde r Schedule ENDOSCOPY CASE REQUEST: EGD, UPPER GI ENDOSCOPY (WRVU 2.09) Procedures Routine Sharma's esophagus with high grade dysplasia Ordered: 01/02/2024 Scheduled Procedures Name Priority Associated Diagnoses Date/Ti me EGD, UPPER GI ENDOSCOPY (WRVU 2.09) Sharma's esophagus with high grade dysplasia 04/06/2024 9:30 AM EST documented as of this encounter Procedures Procedure Name Priority Date/Time Associated Diagnosis Comments RADIOFREQUENCY ABLATION 01/02/20 7:57 AM EDT Sharma's esophagus with dysplasia Esophagoscopy Flexible Transoral Lesion Ablation (88689) 01/02/2024 7:57 AM EDT Sharma's esophagus with dysplasia UPPER GI ENDOSCOPY Routine 01/02/2024 7: 26 AM EDT documented in this encounter Results * UPPER GI ENDOSCOPY (01/02/2024 7:26 AM EDT) UPPER GI ENDOSCOPY [facility] Endoscopy ___ Procedure Date: 01/02/2024 7:26 AM ? Patient Name: Mathew Mendez ? N: [id number] ? Date of : 1955 ? Age: 68 ? Order #: [id number] ? Instrument Name: [id number] ? ___ Procedure: ? Upper GI endoscopy Indications: ? Sharma's esophagus with high grade ? dysplasia Providers: ? Lawrence Gar MD, oClette ? Alicia Navarrete MD: ?Govind Haddad: ? 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 Continuous Medication Order 12/31/2023 01/01/2024 01/02/2024 lactated ringers infusion (CANCELED) 100 mL/hr, Intravenous, CONTINUOUS, Starting on Ladan 01/02/24 at 0730, Until Ladan 01/02/24 at 0839, Endoscopy (Day of Procedure) 0715 (New Bag - Prov ider: Deya Hairston RN) documented in this encounter Care Teams Dimensional Engineer Relationship Specialty Start Date End Date Govind Mendes [place] [address] [place] [address] PCP - General Internal Medicine 11/06/23 documented as of this encounter
--- OUTSIDE RECORDS SUMMARY | 2024-02-18 09:32 | XMS_ITS | Encounter Summary ---
Author Organization [facility] [place] [address] Care Team Providers Care Hotel Associate Name Role Phone Govind Mendes Primary Care Provider + Encounter Details Date Type Department Care Team (Late st Contact Info) Description 11/26/2023 Ancillary Procedure Radiology Library at [facility] [place] [address] Polina Duncan MD [facility] [place] [address] Social History Tobacco Use Types Packs/Day Years [...] 9:30 AM EST Hospital Encounter Gastroenterology at [facility] [place] [phone] Lawrence Gar MD [facility] [place] [address] 04/06/2024 9:30 AM EST - 04/06/2024 10:00 AM EST [place] [address] Lawrence Gar MD [facility] [place] [address] EGD, UPPER GI ENDOSCOPY (WRVU 2.09) 05/06/2024 9:00 AM EST Office Visit [place] [phone] Jovani Richardson MD [facility] [place] [address] A, Nurse Clinician None 11/17/2024 4:20 PM EDT Office [place] [address] Lawrence Gar MD [facility] [place] [address] Scheduled Procedures Name Priority Associated Diagnoses Date/Ti me EGD, UPPER GI ENDOSCOPY (WRVU 2.09) Sharma's esophagus with high grade dysplasia 04/06/2024 9:30 AM EST documented as of this encounter Procedures Procedure Name Priority Date/Time Associated Diagnosis Comments FILM LIBRARY STORAGE ONLY DX SHOULDER Routine 11/26/2023 12:00 AM EDT documented in this encounter Results * Film Library- Storage Only DX Shoulder (11/26/2023 12:00 AM EDT) Narrative [facility] - 02/05/2024 3:03 AM EDT This exam is auto-finalizing. It's purpose is for storage only. Polina Duncan MD IMG FILM LIBRARY ORD ERABLES [place], [place] documented in this encounter Visit Diagnoses Not on filedocumented in this encounter Care Teams Hotel Associate Relationship Specialty Start Date End Date Govind Mendes [place] [address] [place] [address] PCP - General Internal Medicine 11/06/23 documented as of this encounter
--- OUTSIDE RECORDS SUMMARY | 2024-02-18 09:32 | XMS_ITS | Encounter Summary ---
Author Organization [facility] Address [address] [place] [address] Care Team Providers Care Carrier Blower Name Role Phone Jovani Wharton DO Primary Care Provider [phone] Reason for Visit * (Routine/Next Available) - Receiving Office to Obtain Authorization Specialty Diagnoses / Procedures Referred By Devaughn bobo Referred To Contact Procedures CT OUTSIDE IMAGES BODY Imaging, External Referral ID Status Reason Start Date Expiration Date Visits Requested Visits Authorized [id number] Receiving Office to Obtain Authorization 07/23/2021 1 1 Encounter Details Date Type Department Care Team (Latest Contact Info) Description 06/02/2020 - 06/02/2020 23:59 EST Hospital Encounter [facility] Secondary Reads [place] Discharge Disposition: [...] on filedocumented in this encounter Care Teams Carrier Blower Relationship Specialty Start Date End Date Jovani Wharton DO [address] [place] [address] PCP - General 10/11/16 10/17/21 documented as of this encounter
--- OUTSIDE RECORDS SUMMARY | 2024-02-18 09:32 | XMS_ITS | Encounter Summary ---
Author Organization [facility] [place] [address] Care Team Providers Care Gold Leaf Gilder Name Role Phone Govind Mendes Primary Care [...] 9:30 AM EST Hospital Encounter [place] [address] Lawrence Gar MD [facility] [place] [address] 04/06/2024 9:30 AM EST - 04/06/2024 10:00 AM EST Surgery [place] [address] Lawrence Gar MD [facility] [place] [address] EGD, UPPER GI ENDOSCOPY (WRVU 2.09) 05/06/2024 9:00 AM EST Office Visit Nephrology [place] [address] Jovani Richardson MD [facility] [place] [address] A, Nurse Clinician None 11/17/2024 4:20 PM EDT Office Visit [place] [phone] Lawrence Gar MD [facility] [place] [address] Scheduled Procedures Name Priority Associated Diagnoses Date/Ti me EGD, UPPER GI ENDOSCOPY (WRVU 2.09) Sharma's esophagus with high grade dysplasia 04/06/2024 9:30 AM EST documented as of this encounter Visit Diagnoses Not on filedocumented in this encounter Care Teams Gold Leaf Gilder Relationship Specialty Start Date End Date Govind Mendes PA [facility] [place] [place] [address] PCP - General Internal Medicine 11/06/23 documented as of this encounter
--- OUTSIDE RECORDS SUMMARY | 2024-02-18 09:32 | XMS_ITS | Encounter Summary ---
Author Organization [facility] [place] [address] Care Team Providers Care Chemical Handler Name Role Phone Govind Mendes Primary Care Provider + Reason for Visit * Auth/Cert (Routine) Specialty Diagnoses / Procedures Referred By Devaughn t Referred To Contact Diagnoses Sharma's esophagus with dysplasia For Barrx ablation of HGD Procedures PRO UPPER GI ENDOSCOPY, DIAGNOSTIC PRO UPPER GI ENDOSCOPY, BIOPSY PRO UP GI ENDOSCOPY, REMV TUMOR, SNARE PRO ANES, UGI ENDOSCOPY NOS EGD, UPPER GI ENDOSCOPY (WRVU 2.09) Lawrence Gar MD [facility] [place] [address] [facility] Referral ID Status Reason Start Date Expiration Date Visits Re quested Visits Authorized [id number] 1 1 Encounter Details Date Type Department Care Team (Late st Contact Info) Description 01/02/2024 7:57 AM EDT Anesthesia [place] [address] Dennis Peguero MD [facility] [place] [address] April Mchugh CRNA [facility] [place] [address] Anesthesia Record Procedure Summary Procedure Name Responsible Anesthesiologist Anesthesia Start Time Anesthesia Stop Time EGD,WITH ABLATION OF TUMOR OR OTHER LESION (WRVU 3.49) (Trunk) Dennis Peguero MD 01/02/24 07501/02/24 0828 Events Date Time Event Comment 01/02/2024 0731 0757 AN Verify 0757 Start 0757 An Start Data 0802 An Induction 0804 Anesthesia Ready 0823 an stop data 0828 Recovery or ICU Handoff Tawana ent care was transferred to the destination unit staff after review of the patient's medical history, current anesthetic/surgical status and plan, according to the Provider Handoff Checklist. 0828 Stop Meds Name Total lidocaine IV 80 mg propofoL 500 mg lactated ringers infusion 0 mL * Agents Name O2 Air N2O O2 Auxiliary Flowmeter 1 * Blood No blood administrations on file. Lines, Drains, and Airways Type Details Placement Removal PIV 01/02/24; 0715; 22 g auge; metacarpal vein (top of hand), right; B Yovanny; 01/02/24; 0911 01/02/24 0715 by Deya Hairston RN 01/02/24 0911 by Annalisa Suarez RN documented in this encounter Social History [...] OR Notes * Anesthesia Postprocedure Evaluation - Dennis Peguero MD - 01/02/2024 10:17 AM EDT Department of Anesthesiology Post-procedure Note Patient: Mathew Mendez Procedure Summary Date: 01/02/24 Room / Location: [facility] / [facility] Anesthesia Start: 756 Anesthesia Stop: 827 Procedures: EGD,WITH ABLATION OF TUMOR OR OTHER LESION (WRVU 3.49) (Trunk) RADIOFREQUENCY ABLATION (Esophagus) Diagnosis: Sharma's esophagus with dysplasia (For Barrx ablation of HGD) Surgeons: Lawrence Gar MD Responsible Provider: Dennis Peguero MD Anesthesia Type: MAC ASA Status: 3 All Anesthesia Providers: Anesthesiologist: Dennis Peguero MD DRAWING BOX TENDER: April Mchugh CRNA Vitals Value Taken Time BP 153/90 01/02/24 0900 Temp 36.6 ??C (97.9 ??F) 01/02/24 0825 Pulse Resp 16 01/02/24 0900 SpO2 98 % 01/02/24 0901 Pain Level 0 01/02/24 0900 Vitals shown include unfiled device data. Patient Location: PACU/[facility] Level of Consciousness: Awake and Alert Pain Management: Satisfactory Analgesia PONV: None Cardiovascular Status: Hemodynamically Stable and At Baseline Respiratory Status: At Baseline and Room Air Postoperative Fluid Status: Intravascular EUvolemia Possible Anesthetic Complications: NONE apparent at time of evaluation Final Primary Anesthesia Type: MAC (The anesthetic type performed was the same as planned.) Comments: * Anesthesia Preprocedure Evaluation - Dennis Peguero MD - 01/02/2024 7:28 AM EDT Pre-Anesthesia Evaluation for: Mathew Mendez a 68 y.o. male. Procedure(s): EGD, [facility] Patient Active Problem List Diagnosis Date Noted ??? Biceps tendinitis 11/19/2023 ??? History of alcohol abuse 11/19/2023 ??? History of partial surgical removal of colon 11/19/2023 ??? Impingement syndrome of shoulder region 11/19/2023 ??? Sharma's esophagus 05/23/2023 ??? Bursitis of left knee 12/20/2022 ??? Acute kidney injury superimposed on chronic kidney disease 08/15/2022 ??? Alcohol abuse 08/15/2022 ??? Alcohol withdrawal syndrome 08/15/2022 ??? Alcoholic ketoacidosis 08/15/2022 ??? Elevated transaminase measurement 08/15/2022 ??? History of stress test 08/15/2022 ??? Hypokalemia 08/15/2022 ??? Hypomagnesemia 08/15/2022 ??? Unintended weight loss 08/15/2022 ??? Incisional hernia, without obstruction or gangrene 08/02/2022 ??? Hyperparathyroidism due to renal insufficiency 06/15/2022 ??? Exocrine pancreatic insufficiency 04/03/2022 ??? Anemia due to chronic kidney disease 03/13/2022 ??? Diverticulitis of intestine 03/13/2022 ??? Obstructive sleep apnea syndrome 03/13/2022 ??? Paraesophageal hernia 08/01/2021 ??? Pancreatitis 08/09/2020 [...] 4.67) performed by Lawrence Gar MD at [facility] ??? PRO COLONOSCOPY, REMV LESN, SNARE N/A 11/12/2023 COLONOSCOPY, POLYPECTOMY, REMOVAL LESION BY SNARE (WRVU 4.57) performed by Lawrence Gar MD at [facility] ??? PRO UPPER GI ENDOSCOPY, BIOPSY N/A 10/20/2020 EGD WITH BIOPSY (WRVU 2.49) performed by Lawrence Gar MD at [facility] ??? PRO UPPER GI ENDOSCOPY, BIOPSY N/A 11/12/2023 EGD WITH BIOPSY (WRVU 2.39) performed by Lawrence Gar MD at [facility] Social History Tobacco Use ??? Smoking status: Never ??? Smokeless tobacco: Never ??? Tobacco comments: denies vaping Substance Use Topics ??? Alcohol use: Not Currently Comment: none since 03/2020 Social History Substance and Sexual Activity Drug Use Never Allergies Allergen Reactions ??? Cephalosporins Itching ??? Morphine Hives Medications: MAR and/or home medications have been reviewed. Physical Exam: Preprocedure Vitals Current as of 01/02/24 07 BP: 140/97 Pulse: 61 Resp: 18 SpO2: 98 Temp: 36.5 ??C (97.7 ??F) Height: Weight: BMI: IBW: Last edited 01/02/24707 by Currently displaying vitals information from multiple entries within 180 minutes of most recent vitals. Airway Assessment: Mallampati: II TM distance: >3 FB Neck ROM: full Cardiovascular Assessment: Rate: normal Pulmonary Assessment: unlabored breathing Dental Assessment: - normal exam Misc Assessment: IV access: Peripheral line Last Filed Perioperative Cognitive Screening None Anesthesia Plan: ASA 3 MAC, with a(n) intravenous induction 68 y/o man with a PMH of TERE, GERD, pancreatitis, HTN, HLD, CKD Sharma's here for EGD/ablation. No issues with anesthesia. NPO. Plan for propofol sedation. Region - Other Informed Consent: Anesthetic plan and risks discussed with patient and spouse. Plan discussed with DRAWING BOX TENDER and attending. Anesthesia Screening documented in this encounter Plan of Treatment Upcoming Encounters Date Type Department Care Team (Latest Contact Info) Description 04/06/2024 9:30 AM EST Hospital Encounter [place] [address] Lawrence Gar MD [facility] [place] [address] 04/06/2024 9:30 AM EST - 04/06/2024 10:00 AM EST Surgery [place] [address] Lawrence Gar MD [facility] [place] [address] EGD, UPPER GI ENDOSCOPY (WRVU 2.09) 05/06/2024 9:00 AM EST Office Visit Nephrology Hypertension at [place] [phone] Jovani Richardson MD [facility] [place] [address] A, Nurse Clinician None 11/17/2024 4:20 PM EDT Office Visit [place] [phone] Lawrence Gar MD [facility] [place] [address] Scheduled Procedures Name Priority Associated Diagnoses Date/Ti me EGD, UPPER GI ENDOSCOPY (WRVU 2.09) Sharma's esophagus with high grade dysplasia 04/06/2024 9:30 AM EST documented as of this encounter Visit Diagnoses Not on filedocumented in this encounter Administered Medications Inactive Administered Medications - up to 3 most recent administrations Medication Order MAR Action Action Date Dose Rate Site lidocaine (pf) (Xylocaine) (20 mg/mL) 2% injection syringe Intravenous, PRN, Starting on Ladan 01/02/24 at 0802, Until Ladan 01/02/24 at 0828, Anesthesia Intra-op, Routine Given 01/02/2024 8:02 AM EDT 80 mg propofoL (Diprivan) 10 mg/mL bolus injection (Anesthesia) Intravenous, PRN, Starting on Ladan 01/02/24 at 0802, Until Ladan 01/02/24 at 0828, Anesthesia Intra-op Given 01/02/2024 8:21 AM EDT 50 mg Given 01/02/2024 8:19 AM EDT 20 mg Given 01/02/2024 8:17 AM EDT 50 mg documented in this encounter Care Teams Chemical Handler Relationship Specialty Start Date End Date Govind Mendes PA [address] [place] [address] PCP - General Internal Medicine 11/06/23 documented as of this encounter
--- OUTSIDE RECORDS SUMMARY | 2024-02-18 09:32 | XMS_ITS | Encounter Summary ---
[place] [address] Care Team Providers Care Quilting Machine Helper Name Role Phone Govind Mendes Primary Care Provider + Encounter Details Date Type Department Care Team (Late st Contact Info) Description 12/11/2023 Telephone [place] [address] Karol Iverson RN Social History Tobacco Use [...] (Latest Contact Info) Description 04/06/2024 9:30 AM [facility] Hospital [place] [address] Lawrence Gar MD [facility] [place] [address] 04/06/2024 9:30 AM EST - 04/06/2024 10:00 AM EST Surgery Gastroenterology at [address] Lawrence Gar MD [facility] [place] [address] EGD, UPPER GI ENDOSCOPY (WRVU 2.09) 05/06/2024 9:00 AM EST Office Visit Nephrology Hypertension at [place] [address] Jovani Richardson MD [facility] [place] [address] A, Nurse Clinician None 11/17/2024 4:20 PM EDT Office Visit Gastroenterology at [place] [address] Lawrence Gar MD [facility] [place] [address] Scheduled Procedures Name Priority Associated Diagnoses Date/Ti me EGD, UPPER GI ENDOSCOPY (WRVU 2.09) Sharma's esophagus with high grade dysplasia 04/06/2024 9:30 AM EST documented as of this encounter Visit Diagnoses Not on filedocumented in this encounter Care Teams Quilting Machine Helper Relationship Specialty Start Date End Date Govind Mendes PA [facility] [place] [address] PCP - General Internal Medicine 11/06/23 documented as of this encounter
--- OUTSIDE RECORDS SUMMARY | 2024-02-18 09:32 | XMS_ITS | Encounter Summary ---
[place] [address] Care Team Providers Care Clerical Support Name Role Phone Govind Mendes Primary Care Provider + Encounter Details Date Type Department Care Team (Late st Contact Info) Description 12/02/2023 Telephone [place] [address] Nehal Ferrara Social History Tobacco Use Types [...] - 12/02/2023 8:21 AM EDT Mathew Mendez [id number] Diagnosis/Indication: barretts Please review patient chart to [...] your procedure. Who will likely be your river driver for the procedure? *Please Verify the [...] 9:30 AM EST Hospital Encounter [place] [address] Lawrence Gar MD [facility] [place] [address] 04/06/2024 9:30 AM EST - 04/06/2024 10:00 AM EST [place] [address] Lawrence Gar MD [facility] [place] [address] EGD, UPPER GI ENDOSCOPY (WRVU 2.09) 05/06/2024 9:00 AM EST Office Visit [place] [address] Jovani Richardson MD [facility] [address] A, Nurse Clinician None 11/17/2024 4:20 PM EDT Office [place] [address] Lawrence Gar MD [facility] [place] [address] Scheduled Procedures Name Priority Associated Diagnoses Date/Ti me EGD, UPPER GI ENDOSCOPY (WRVU 2.09) Sharma's esophagus with high grade dysplasia 04/06/2024 9:30 AM EST documented as of this encounter Visit Diagnoses Not on filedocumented in this encounter Care Teams Clerical Support Relationship Specialty Start Date End Date Govind Mendes PA [address] [place] [address] PCP - General Internal Medicine 11/06/23 documented as of this encounter
--- OUTSIDE RECORDS SUMMARY | 2024-02-18 09:32 | XMS_ITS | Encounter Summary ---
[place] [address] Care Team Providers Care Blanket Weaver Name Role Phone Govind Mendes Primary Care Provider + Encounter Details Date Type Department Care Team (Late st Contact Info) Description 12/10/2023 Telephone Nephrology [place] [address] Karol Iverson RN Social History Tobacco Use [...] 12/10/2023 3:51 PM EDT S/O: Call from [facility] with critical result. BUN 61 and Creatinine 4.4. Full BMP to follow. P: Above sent to Dr Richardson for review and recommendation documented in this encounter Plan of Treatment Upcoming Encounters Date Type Department Care Team (Latest Contact Info) Description 04/06/2024 9:30 AM [facility] Encounter Gastroenterology at [place] [phone] Lawrence Gar MD [facility] [place] [address] 04/06/2024 9:30 AM EST - 04/06/2024 10:00 AM EST Surgery Gastroenterology at [place] [address] Lawrence Gar MD [facility] [place] [address] EGD, UPPER GI ENDOSCOPY (WRVU 2.09) 05/06/2024 9:00 AM EST Office Visit Nephrology Hypertension at [place] [address] Jovani Richardson MD [facility] [place] [address] A, Nurse Clinician None 11/17/2024 4:20 PM EDT Office Visit Gastroenterology at [place] [address] Lawrence Gar MD [facility] [place] [address] Scheduled Procedures Name Priority Associated Diagnoses Date/Ti me EGD, UPPER GI ENDOSCOPY (WRVU 2.09) Sharma's esophagus with high grade dysplasia 04/06/2024 9:30 AM EST documented as of this encounter Visit Diagnoses Not on filedocumented in this encounter Care Teams Blanket Weaver Relationship Specialty Start Date End Date Govind Mendes PA [facility] [place] [address] PCP - General Internal Medicine 11/06/23 documented as of this encounter
--- OUTSIDE RECORDS SUMMARY | 2024-02-18 09:32 | XMS_ITS | Encounter Summary ---
Author Organization [facility] [place] [address] Care Team Providers Care Baby Doctor Name Role Phone Govind Mendes Primary Care Provider + Encounter Details Date Type Department Care Team (Late st Contact Info) Description 12/11/2023 External Results Neph[place] [address] Karol Iverson RN Social History Tobacco Use [...] 9:30 AM EST Hospital Encounter [place] [address] Lawrence Gar MD [facility] [place] [address] 04/06/2024 9:30 AM EST - 04/06/2024 10:00 AM EST Surgery [place] [address] Lawrence Gar MD [facility] [place] [address] EGD, UPPER GI ENDOSCOPY (WRVU 2.09) 05/06/2024 9:00 AM EST Office Visit Nephrology Hypertension at [place] [phone] Jovani Richardson MD [facility] [place] [address] A, Nurse Clinician None 11/17/2024 4:20 PM EDT Office Visit Gastroenterology at [place] [phone] Lawrence Gar MD [facility] [place] [address] Scheduled Procedures Name Priority Associated Diagnoses Date/Ti me EGD, UPPER GI ENDOSCOPY (WRVU 2.09) Sharma's esophagus with high grade dysplasia 04/06/2024 9:30 AM EST documented as of this encounter Procedures Procedure Name Priority Date/Time Associated Diagnosis Comments BASIC METABOLIC PANEL Routine 12/10/2023 documented in this encounter Results * Basic Metabolic Panel (non-fasting) (12/10/2023) Glucose 95 Blood Urea Nitrogen 61 Creatinine 4.4 Est Glomerular Filtration Rate 13.77 Sodium 142 Potassium 5.1 Chloride 109 Carbon Dioxide 19 Calcium 8.6 Blood 12/10/2023 Historical Provider CHEMISTRY ORDERAB LES documented in this encounter Visit Diagnoses Not on filedocumented in this encounter Care Teams Baby Doctor Relationship Specialty Start Date End Date Govind [place] [address] PCP - General Internal Medicine 11/06/23 documented as of this encounter
--- OUTSIDE RECORDS SUMMARY | 2024-02-18 09:32 | XMS_ITS | Encounter Summary ---
Author Organization [facility] Address [address] [place] [address] Care Team Providers Care Speech Language Specialist Name Role Phone Jovani Wharton DO Primary Care Provider [phone]- [phone] Jorge Chauhan MD Primary Care Provider Luis Lauren MD Primary Care Provider +1 -[phone] Slade Tran MD Primary Care Provider [phone] Encounter Details Date Type Department Care Team (Late st Contact Info) Description 11/29/2019 Lab Requisition [facility] Pathology & Laboratory Medicine - [facility] [address], [place] [id number] Outr Resulting Lab, Provider Social History Tobacco [...] Not Detected Not Detected 12/01/2019 17:03 EDT [facility] Comment: This test has not been [...] or revoked sooner. ??Factsheets for healthcare providers: ??https://www.fda.gov/media/400014/download Factsheets for patients: https://www.fda.gov/media/305431/download Negative results do not preclude infection with SARS-CoV-2 virus, and should not be the sole basis of a patient management decision. Swab ENTIRE NASOPHARYNX / Unknown 11/29/2019 13:07 EDT 11/30/2019 15:49 EDT Provider Outr Resulting Lab MICROBIOLOGY - GENERAL ORDERABLES Performing Organization Address City/State/[facility] Co de Phone Number [facility] [address] [place] [address] * COVID-19 TESTING (11/29/2019 13:07 EDT) COVID-19 rt-PCR Result Not Detected Not Detected 12/01/2019 17:13 EDT [facility] Comment: This test has not been [...] or revoked sooner. ??Factsheets for healthcare providers: ??https://www.fda.gov/media/216494/download Factsheets for patients: https://www.fda.gov/media/203935/download Negative results do not preclude infection with SARS-CoV-2 virus, and should not be the sole basis of a patient management decision. Performing Lab [facility] 12/01/2019 17:13 EDT [facility] Swab 11/29/2019 13:0 7 EDT 11/30/2019 15:49 EDT Provider Outr Resulting Lab MICROBIOLOGY - GENERAL ORDERABLES [facility] [address] [place], [place] [id number] [place] [address] LABORATORY [address] [place] [address] documented in this encounter Visit Diagnoses Not on filedocumented in this encounter Additional Health Concerns Infection Onset Date Last Indicated Resolved Time R/O COVID-19 11/29/2019 11/29/2019 12/04/2019 22:1 7 EDT documented as of this encounter Care Teams Speech Language Specialist Relationship Specialty Start Date End Date Jovani Wharton DO [address] [place], [place] [address] PCP - General 10/11/16 10/17/21 Jorge Chauhan MD [address] [place], [place] [address] PCP - General Family Medicine - Primary Care 10/18/21 11/22/21 Luis Lauren MD [address] [place], [place] [address] PCP - General Family Medicine - Primary Care 11/23/21 11/11/22 Slade Tran MD [address] [facility] [place] [address] PCP - General 11/12/22 documented as of this encounter
--- OUTSIDE RECORDS SUMMARY | 2024-02-18 09:32 | XMS_ITS | Encounter Summary ---
Author Organization [facility] Address [address] [place] [address] Care Team Providers Care Engineering Technical Analyst Name Role Phone Jovani Wharton DO Primary Care Provider [phone]- [phone] Reason for Visit * (Routine/Next Available) - Receiving Office to Obtain Authorization Specialty Diagnoses / Procedures Referred By Devaughn bobo Referred To Contact Procedures XR OUTSIDE IMAGES CHEST Unknown, Provider, Referral ID Status Reason Start Date Expiration Date Visits Requested Visits Authorized [id number] Receiving Office to Obtain Authorization 07/27/2021 1 1 Encounter Details Date Type Department Care Team (Latest Contact Info) Description 07/26/2021 - 07/26/2021 9:26 EST Hospital Encounter [facility] Secondary Reads [place] Discharge Disposition: [...] on filedocumented in this encounter Care Teams Engineering Technical Analyst Relationship Specialty Start Date End Date Jovani Wharton DO [address] [place] [address] PCP - General 10/11/16 10/17/21 documented as of this encounter
--- OUTSIDE RECORDS SUMMARY | 2024-02-18 09:32 | XMS_ITS | Encounter Summary ---
Author Organization [facility] Address [address] [place] [address] Care Team Providers Care Railroad Shop Inspector Name Role Phone Jovani Wharton DO Primary Care Provider [phone]- [phone] Jorge Chauhan MD Primary Care Provider Luis Lauren MD Primary Care Provider [phone] Slade Tran MD Primary Care Provider Encounter Details Date Type Department Care Team (Late st Contact Info) Description 08/09/2020 Lab Requisition [facility] Pathology & Laboratory Medicine - [facility] [address] [place], [place] [id number] Outr Resulting Lab, Provider Social History Tobacco [...] 0.0 - 4.5 ng/mL 08/09/2020 22:41 EDT [facility] Blood VENOUS BLOOD / Unknown 08/09/2020 9:12 EDT 08/09/2020 21:13 EDT Narrative [facility] - 08/09/2020 22:41 EDT NOTE: Serum PSA concentration should not be interpreted as absolute evidence for the presence or absence of malignant disease. Assayed on Siemens ADVIA [employer] XPT using chemiluminescent technology.??Values obtained by using different assay methods cannot be used interchangeably. Provider Outr Resulting Lab CHEMISTRY & BLOOD GAS ORDERABLES [facility] [address] [place] [address] documented in this encounter Visit Diagnoses Not on filedocumented in this encounter Care Teams Railroad Shop Inspector Relationship Specialty Start Date End Date Jovani Wharton DO [address] [place], [place] [address] PCP - General 10/11/16 10/17/21 Jorge Chauhan MD [address] [place], [place] [address] PCP - General Family Medicine - Primary Care 10/18/21 11/22/21 Luis Lauren MD [address] [place], [place] [address] PCP - General Family Medicine - Primary Care 11/23/21 11/11/22 Slade Tran MD [facility] [place] [address] PCP - General 11/12/22 documented as of this encounter
--- OUTSIDE RECORDS SUMMARY | 2024-02-18 09:32 | XMS_ITS | Encounter Summary ---
Author Organization [facility] [place] [address] Care Team Providers Care Twister Frame Tender Name Role Phone Govind Mendes Primary Care [...] 9:30 AM EST Hospital En[place] [address] Lawrence Gar MD [facility] [place] [address] 04/06/2024 9:30 AM EST - 04/06/2024 10:00 AM EST Surgery [place] [address] Lawrence Gar MD [facility] [place] [address] EGD, UPPER GI ENDOSCOPY (WRVU 2.09) 05/06/2024 9:00 AM EST Office Visit [place]phrology [place] [address] Jovani Richardson MD [facility] [place] [address] A, Nurse Clinician None 11/17/2024 4:20 PM EDT Office Visit [place] [address] Lawrence Gar MD [facility] [place] [address] Scheduled Procedures Name Priority Associated Diagnoses Date/Ti me EGD, UPPER GI ENDOSCOPY (WRVU 2.09) Sharma's esophagus with high grade dysplasia 04/06/2024 9:30 AM EST documented as of this encounter Visit Diagnoses Not on filedocumented in this encounter Care Teams Twister Frame Tender Relationship Specialty Start Date End Date Govind Mendes PA [facility] [place] [address] PCP - General Internal Medicine 11/06/23 documented as of this encounter
--- OUTSIDE RECORDS SUMMARY | 2024-02-18 09:32 | XMS_ITS | Encounter Summary ---
[place] [address] Care Team Providers Care Proof Plate Maker Name Role Phone Govind Mendes Primary Care Provider + Encounter Details Date Type Department Care Team (Late st Contact Info) Description 12/20/2023 Telephone [place] [address] Lizet Hayward RN Social History Tobacco Use [...] Telephone Encounter - Lizet Hayward RN - 12/20/2023 1:09 PM EDT S/O: Staff at [facility] lab called with critical creatinine of 3.8 This is an improvement from patient's previous blood draw on 12/10/23. P: Results sent to Dr. Richardson for review. documented in this encounter Plan of Treatment Upcoming Encounters Date Type Department Care Team (Latest Contact Info) Description 04/06/2024 9:30 AM EST Hospital Encounter [place] [address] Lawrence Gar MD [facility] [place] [address] 04/06/2024 9:30 AM EST - 04/06/2024 10:00 AM EST Surgery Gastroenterology at [place] [address] Lawrence Gar MD [facility] [place] [address] EGD, UPPER GI ENDOSCOPY (WRVU 2.09) 05/06/2024 9:00 AM EST Office Visit Nephrology Hypertension at [place] [address] Jovani Richardson MD [facility] [place] [address] A, Nurse Clinician None 11/17/2024 4:20 PM EDT Office Visit Gastroenterology at [place] [phone] Lawrence Gar MD [facility] [place] [address] Scheduled Procedures Name Priority Associated Diagnoses Date/Ti me EGD, UPPER GI ENDOSCOPY (WRVU 2.09) Sharma's esophagus with high grade dysplasia 04/06/2024 9:30 AM EST documented as of this encounter Visit Diagnoses Not on filedocumented in this encounter Care Teams Proof Plate Maker Relationship Specialty Start Date End Date Govind Mendes PA [facility] [place] [address] PCP - General Internal Medicine 11/06/23 documented as of this encounter
--- OUTSIDE RECORDS SUMMARY | 2024-02-18 09:32 | XMS_ITS | Encounter Summary ---
Author Organization [facility] [place] [address] Care Team Providers Care Rfid Engineer Name Role Phone Govind Mendes Primary Care Provider + Encounter Details Date Type Department Care Team (Late st Contact Info) Description 02/05/2024 Orders Only Neph[place] [address] Karol Iverson RN Social History Tobacco Use [...] 9:30 AM EST Hospital Encounter [place] [address] Lawrence Gar MD [facility] [place] [address] 04/06/2024 9:30 AM EST - 04/06/2024 10:00 AM EST Surgery [place] [address] Lawrence Gar MD [facility] [place] [address] EGD, UPPER GI ENDOSCOPY (WRVU 2.09) 05/06/2024 9:00 AM EST Office Visit Nephrology Hypertension at [place] [phone] Jovani Richardson MD [facility] [place] [place] [address] A, Nurse Clinician None 11/17/2024 4:20 PM EDT Office Visit Gastroenterology at [place] [phone] Lawrence Gar MD [facility] [place] [address] Scheduled Procedures Name Priority Associated Diagnoses Date/Ti me EGD, UPPER GI ENDOSCOPY (WRVU 2.09) Sharma's esophagus with high grade dysplasia 04/06/2024 9:30 AM EST documented as of this encounter Visit Diagnoses Not on filedocumented in this encounter Care Teams Rfid Engineer Relationship Specialty Start Date End Date [place] [address] PCP - General Internal Medicine 11/06/23 documented as of this encounter
--- OUTSIDE RECORDS SUMMARY | 2024-02-18 09:32 | XMS_ITS | Encounter Summary ---
Author Organization [facility] [place] [address] Care Team Providers Care Director Strategic Planning Name Role Phone Govind Mendes Primary Care [...] 2.09) COLONOSCOPY,SCREENING (WRVU 3.26) Lawrence Gar MD [facility] [place] [address] [facility] Referral ID Status Reason Start Date Expiration Date Visits Re quested Visits Authorized [id number] 1 1 Encounter Details Date Type Department Care Team (Late st Contact Info) Description 11/12/2023 11:00 AM EDT - 11/12/2023 12:00 PM EDT [place] [address] Lawrence Gar MD [facility] [place] [address] EGD WITH BIOPSY (WRVU 2.29) Social History Tobacco Use Types Packs/Day Years [...] occurs, please contact your Doctor. Please call [phone] before 8pm Mon-Fri with problems, questions or concerns. If you call after 8pm or on weekends, call the Hospital at [phone] and ask to speak to the Editor Publications management information systems director and the non garment sewing machine operator will contact that person for you. When should you call for help? Call [phone] anytime you think you may need emergency [...] any problems. Where can you learn more? [facility] View your After Visit Summary and more online at [email or web address] If you would like to provide feedback about your hospital experience, please call the Office of Patient and Family Relations at . If you have received this After Visit Summary in error, please immediately return it in person to the department, or notify the [facility] Privacy Office by calling toll free at between the hours of 8AM and 5PM to arrange for our retrieval of the documents at no cost to you. Content Version: 12.2 ?? 3643-7208 Infomous. Care instructions adapted under license by [facility]. If you have questions about a medical condition or this instruction, always ask your healthcare professional. [employer] disclaims any warranty or liability for your [...] the day after the procedure, use an lhlz-vas-tnxlmgz spray to numb your throat. Sucking on [...] occurs, please contact your Doctor. Please call [phone] before 8pm Mon-Fri with problems, questions or concerns. If you call after 8pm or on weekends, call the Hospital at [phone] and ask to speak to the Editor Publications management information systems director and the non garment sewing machine operator will contact that person for you. When should you call for help? Call [phone] anytime you think you may need emergency [...] any problems. Where can you learn more? [facility] View your After Visit Summary and more online at [email or web address] If you would like to provide feedback about your hospital experience, please call the Office of Patient and Family Relations at . If you have received this After Visit Summary in error, please immediately return it in person to the department, or notify the [facility] Privacy Office by calling toll free at between the hours of 8AM and 5PM to arrange for our retrieval of the documents at no cost to you. Content Version: 12.2 ?? 1915-2851 Infomous. Care instructions adapted under license by [facility]. If you have questions about a medical condition or this instruction, always ask your healthcare professional. [employer] disclaims any warranty or liability for your [...] the day after the procedure, use an oqox-bws-elpwdxt spray to numb your throat. Sucking on [...] occurs, please contact your Doctor. Please call [phone] before 8pm Mon-Fri with problems, questions or concerns. If you call after 8pm or on weekends, call the Hospital at [phone] and ask to speak to the Editor Publications management information systems director and the non garment sewing machine operator will contact that person for you. When should you call for help? Call [phone] anytime you think you may need emergency [...] any problems. Where can you learn more? [facility] View your After Visit Summary and more online at [email or web address] If you would like to provide feedback about your hospital experience, please call the Office of Patient and Family Relations at . If you have received this After Visit Summary in error, please immediately return it in person to the department, or notify the [facility] Privacy Office by calling toll free at between the hours of 8AM and 5PM to arrange for our retrieval of the documents at no cost to you. Content Version: 12.2 ?? 0084-7320 Infomous. Care instructions adapted under license by [facility]. If you have questions about a medical condition or this instruction, always ask your healthcare professional. [employer] disclaims any warranty or liability for your use of this information. documented in this encounter Medications at Time of Discharge Medication Sig Dispensed Refills Start Date End Date calciTRIoL (Rocaltrol) 0.25 mcg capsule Take 1 [...] for Sharma's ablation within next 1-2 mos. [place] [employer]5 yrs. documented in this encounter H&P [...] 9:30 AM EST Hospital [place] [address] Lawrence Gar MD [facility] [place] [address] 04/06/2024 9:30 AM EST - 04/06/2024 10:00 AM EST [place] [phone] Lawrence Gar MD [facility] [place] [address] [place] [address] EGD, UPPER GI ENDOSCOPY (WRVU 2.09) 05/06/2024 9:00 AM EST Office Visit Nephrology Hypertension at [place] [phone] Jovani Richardson MD [facility] [place] [address] A, Nurse Clinician None 11/17/2024 4:20 PM EDT Office [place] [address] Lawrence Gar MD [facility] [place] [address] Scheduled Procedures Name Priority Associated Diagnoses Date/Ti al EGD, UPPER GI ENDOSCOPY (WRVU 2.09) Sharma's esophagus with high grade dysplasia 04/06/2024 9:30 AM EST documented as of this encounter Procedures Procedure Name Priority Date/Time Associated Diagnosis Comments SURGICAL PATHOLOGY REPORT Routine 11/12/2023 11:23 AM EDT SPECIMEN TO PATHOLOGY Routine 11/12/2023 11:23 AM EDT SPECIMEN TO PATHOLOGY Routine 11/12/2023 11:23 AM EDT Colonoscopy, Remv Lesn, Snare ([id number]) 11/12/2023 10:48 AM EDT 3 year Upper Gi Endoscopy, Biopsy (22024) 11/12/2023 10:48 AM EDT 3 year UPPER GI ENDOSCOPY Routine 11/12/2023 10 :28 AM EDT COLONOSCOPY Routine 11/12/2023 10:27 AM EDT documented in this encounter Results * (ABNORMAL) Surgical Pathology Report (11/12/2023 11:23 AM EDT) Final Diagnosis [id number] ? Location: 4T; EA06; A The signing [...] Shyla Verified: ??11/26/2023 14:50 ??Pathologist Performed at: ??-[facility] Dept. of Pathology, [place] [address] Wood Experimental Mechanic: Deana Lopez MD, FCAP, ??CLIA Certificate: [id number] DISCUSSION The case was reviewed at the [...] PM EDT [facility] GI Biopsy 11/12/2023 11:2 3 AM EDT 11/12/2023 11:23 AM EDT GI Biopsy 11/12/2023 11:2 3 AM EDT 11/12/2023 11:23 AM EDT Lawrence Gar MD PATHOLOGY/CYTOLOGY [place] [address] * Specimen to Pathology (11/12/2023 11:23 AM EDT) AP Specimen 11/12/2023 11:2 3 AM EDT 11/12/2023 11:23 AM EDT Narrative [facility] - 11/12/2023 11:23 AM EDT Specimen requisition ordered. ??Separate Pathology report to follow Lawrence Gar MD PATHOLOGY/CYTOLOGY O SONIYA Performing Organization Address [facility] [place] [address] * Specimen to Pathology (11/12/2023 11:23 AM EDT) AP Specimen 11/12/2023 11:2 3 AM EDT 11/12/2023 11:23 AM EDT Narrative [facility] - 11/12/2023 11:23 AM EDT Specimen requisition ordered. ??Separate Pathology report to follow Lawrence Gar MD PATHOLOGY/CYTOLOGY O SONIYA Performing Organization Address [facility] [place] [address] * UPPER GI ENDOSCOPY (11/12/2023 10:28 AM EDT) UPPER GI ENDOSCOPY [facility] Endoscopy ___ Procedure Date: 11/12/2023 10:28 AM ? Patient Name: Mathew Mendez ? N: [id number] ? Date of : 1955 ? Age: 68 ? Order #: [id number] ? Instrument Name: EG-760R- [id number] ? ___ Procedure: ? Upper GI endoscopy [...] esophageal mucosal changes suggestive of ? short-segment Sharam's esophagus. These changes ? involved the mucosa [...] * COLONOSCOPY (11/12/2023 10:27 AM EDT) COLONOSCOPY [facility] Endoscopy ___ Procedure Date: 11/12/2023 10:27 AM ? Patient Name: Mathew Mendez ? Date of : 1955 ? Age: 68 ? Order #: [id number] ? Instrument Name: [id number]- [id number] ? ___ Procedure: ? Colonoscopy Indications: ? [...] ? was evaluated using the BBPS ? ([place] Bowel Preparation Scale) ? with scores of: [...] CONTINUOUS, Starting on Sat11/12/23 at 1030, Until 6/18/24 at 1204, Endoscopy (Day of Procedure) 1030 (New Bag - Prov ider: Michelle Diaz LPN)1050 (Paused - Provider: Dominguez Cullen CRNA - Comment: Switch to gravity)1051 (Restarted - Provider: Dominguez Cullen CRNA)1100 (Anesthesia Volume Adjustment - Provider: Dominguez Cullen CRNA) documented in this encounter Care Teams Director Strategic Planning Relationship Specialty Start Date End Date Govind Mendes PA [facility] [place] [address] PCP - General Internal Medicine 11/06/23 documented as of this encounter
--- OUTSIDE RECORDS SUMMARY | 2024-02-18 09:32 | XMS_ITS | Encounter Summary ---
Author Organization [facility] Address [address] [place] [address] Care Team Providers Care Cannon Crewmember Name Role Phone Jovani Wharton DO Primary Care Provider [phone]- [phone] Encounter Details Date Type Department Care Team (Late st Contact Info) Description 09/12/2018 Results Only [facility] [phone] Woodrow Saravia MD [address] [place] [address] Social History Tobacco Use Types [...] ? MATHEW LINK ? Accession #: ? [id number] ? : ? 1955 (Age: 63) ??M ? Collect Date: ? 09/12/2018 ? Location: ? [facility] ? Receive Date: ? 09/15/2018 ? Provider: WOODROW SRAAVIA MD Copy to: ? Final Pathologic Diagnosis: [...] (ASCP) 09/15/2018 4:09 PM End of Report [facility] 09/12/2018 15:4 7 EDT 09/15/2018 15:47 EDT Woodrow Saravia MD PATHOLOGY ORDERABLES [facility] [address] [place] [address] documented in this encounter Visit Diagnoses Not on filedocumented in this encounter Care Teams Cannon Crewmember Relationship Specialty Start Date End Date Jovani Wharton DO [address] [place] [address] PCP - General 10/11/16 10/17/21 documented as of this encounter
--- OUTSIDE RECORDS SUMMARY | 2024-02-18 09:32 | XMS_ITS | Encounter Summary ---
Author Organization [facility] Address [address] [place] [address] Care Team Providers Care Healthcare Receptionist Name Role Phone Jovani Wharton DO Primary Care Provider [phone]- [phone] Jorge Chauhan MD Primary Care Provider Luis Lauren MD Primary Care Provider [phone] Slade Tran MD Primary Care Provider [phone] Reason for Visit * Reason Onset Date Comments Appointment Related 06/02/2021 Encounter Details Date Type Department Care Team (Late st Contact Info) Description 06/02/[address] [facility] Nephrology - [address] [address] Unknown, Provider, Appointment Related Social [...] on filedocumented in this encounter Care Teams Healthcare Receptionist Relationship Specialty Start Date End Date Jovani Wharton DO [address] [place], [place] [id number] PCP - General 10/11/16 10/17/21 Jorge Chauhan MD [address] [place], [place] [id number] PCP - General Family Medicine - Primary Care 10/18/21 11/22/21 Luis Lauren MD [address] [place], [place] [id number] PCP - General Family Medicine - Primary Care 11/23/21 11/11/22 Slade Tran MD [facility] [place] [address] PCP - General 11/12/22 documented as of this encounter
--- OUTSIDE RECORDS SUMMARY | 2024-02-18 09:32 | XMS_ITS | Encounter Summary ---
Author Organization [facility] Address [address] [place] [address] Care Team Providers Care Fire Protection Engineering Technician Name Role Phone IdoJovani liu Michel Primary Care Provider [phone]- [phone] Reason for Visit * (Routine/Next Available) - Receiving Office to Obtain Authorization Specialty Diagnoses / Procedures Referred By Devaughn bobo Referred To Contact Procedures XR OUTSIDE IMAGES CHEST Imaging, External Referral ID Status Reason Start Date Expiration Date Visits Requested Visits Authorized [id number] Receiving Office to Obtain Authorization 07/26/2021 1 1 Encounter Details Date Type Department Care Team (Latest Contact Info) Description 07/26/2021 9:27 EST - 07/26/2021 22:[address] [facility] Secondary Reads [place] Discharge Disposition: Home [...] on filedocumented in this encounter Care Teams Fire Protection Engineering Technician Relationship Specialty Start Date End Date Jovani Wharton DO [address] [place] [address] PCP - General 10/11/16 10/17/21 documented as of this encounter
--- OUTSIDE RECORDS SUMMARY | 2024-02-18 09:32 | XMS_ITS | Encounter Summary ---
Author Organization [facility] [place] [address] Care Team Providers Care Piledriver Carpenter Name Role Phone Govind Mendes Primary Care [...] Gar MD [facility] [place] [address] [facility] Referral ID Status Reason Start Date Expiration Date Visits Re quested Visits Authorized [id number] 1 1 Encounter Details Date Type Department Care Team (Latest Contact Info) Description 01/02/2024 6:26 AM EDT - 01/02/2024 9:33 AM EDT Hospital Encounter [place] [address] Lawrence Gar MD [facility] [place] [address] 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 Sucking on [...] occurs, please contact your Doctor. Please call [phone] before 8pm Mon-Fri with problems, questions or concerns. If you call after 8pm or on weekends, call the Hospital at [phone] and ask to speak to the Bar Useful Or Busser senior application programmer and the offset proof press operator will contact that person for you. When should you call for help? Call [phone] anytime you think you may need emergency [...] After Visit Summary and more online at [email or web address] If you would like to provide [...] cost to you. Content Version: 12.2 ?? 6283-1327 Authorly. Care instructions adapted under license by [facility]. If you have questions about a medical condition or this instruction, always ask your healthcare professional. Authorly disclaims any warranty or liability for your [...] the day after the procedure, use an eyza-gnc-cufhiwc spray to numb your throat. Sucking on [...] occurs, please contact your Doctor. Please call [phone] before 8pm Mon-Fri with problems, questions or concerns. If you call after 8pm or on weekends, call the Hospital at [phone] and ask to speak to the Bar Useful Or Busser senior application programmer and the offset proof press operator will contact that person for you. When should you call for help? Call [phone] anytime you think you may need emergency [...] any problems. Where can you learn more? [facility] View your After Visit Summary and more online at [email or web address] If you would like to provide [...] cost to you. Content Version: 12.2 ?? 2142-4200 Authorly. Care instructions adapted under license by [facility]. If you have questions about a medical condition or this instruction, always ask your healthcare professional. Authorly disclaims any warranty or liability for your [...] 9:30 AM EST Hospital Encounter [place] [address] Lawrence Gar MD [facility] [place] [address] 04/06/2024 9:30 AM EST - 04/06/2024 10:00 AM EST Surgery [place] [address] Lawrence Gar MD [facility] [place] [address] EGD, UPPER GI ENDOSCOPY (WRVU 2.09) 05/06/2024 9:00 AM EST Office Visit Nephrology [place] [address] Jovani Richardson MD [facility] [place] [address] A, Nurse Clinician None 11/17/2024 4:20 PM EDT Office Visit [place] [address] Lawrence Gar MD [facility] [place] [address] Scheduled Orders Name Type Priority Associated Diagnoses [...] with dysplasia Esophagoscopy Flexible Transoral Lesion Ablation ([id number]) 01/02/2024 7:57 AM EDT Sharma's esophagus with dysplasia UPPER GI ENDOSCOPY Routine 01/02/2024 7: 26 AM EDT documented in this encounter Results * UPPER GI ENDOSCOPY (01/02/2024 7:26 AM EDT) UPPER GI ENDOSCOPY [facility] ___ Procedure Date: 01/02/2024 7:26 AM ? Patient Name: Mathew Mendez ? N: [id number] ? Date of : 1955 ? Age: 68 ? Order #: [id number] ? Instrument Name: EG-760R- [id number] ? ___ Procedure: ? Upper GI endoscopy Indications: ? Sharma's esophagus with high grade ? dysplasia Providers: ? Lawrence Gar MD, Colette ? Alicia aNvarrete MD: ?Govind Haddad: ? Propofol per Anesthesia [...] RN) documented in this encounter Care Teams Piledriver Carpenter Relationship Specialty Start Date End Date [place] [place] [address] PCP - General Internal Medicine 11/06/23 documented as of this encounter
--- OUTSIDE RECORDS SUMMARY | 2024-02-18 09:32 | XMS_ITS | Encounter Summary ---
[place] [address] Care Team Providers Care Machinist Set Up Name Role Phone Govind Mendes Primary Care Provider + Encounter Details Date Type Department Care Team (Late st Contact Info) Description 11/26/2023 Telephone Nephrology [place] [address] Lizet Hayward RN Social History Tobacco Use [...] spoke with Dr. Richardson. He would like Mahtew to get some home readings for us [...] 9:30 AM EST Hospital Encounter Gastroenterology at [place] [phone] Lawrence Gar MD [facility] [place] [address] 04/06/2024 9:30 AM EST - 04/06/2024 10:00 AM EST Surgery [place] [address] Lawrence Gar MD [facility] [place] [address] EGD, UPPER GI ENDOSCOPY (WRVU 2.09) 05/06/2024 9:00 AM EST Office Visit Nephrology [place] [address] Jovani Richardson MD [facility] [place] [address] A, Nurse Clinician None 11/17/2024 4:20 PM EDT Office Visit [place] [address] Lawrence Gar MD [facility] [place] [address] Scheduled Procedures Name Priority Associated Diagnoses Date/Ti me EGD, UPPER GI ENDOSCOPY (WRVU 2.09) Sharma's esophagus with high grade dysplasia 04/06/2024 9:30 AM EST documented as of this encounter Visit Diagnoses Not on filedocumented in this encounter Care Teams Machinist Set Up Relationship Specialty Start Date End Date Govind Mendes PA [facility] [place] [address] PCP - General Internal Medicine 11/06/23 documented as of this encounter
--- OUTSIDE RECORDS SUMMARY | 2024-02-18 09:32 | XMS_ITS | Encounter Summary ---
Author Organization [facility] Address [address] [place] [address] Care Team Providers Care Boiler Coverer Name Role Phone Jovani Wharton DO Primary Care Provider [phone]- [phone] Jorge Chauhan MD Primary Care Provider Luis Lauren MD Primary Care Provider [phone] Slade Tran MD Primary Care Provider [phone] Encounter Details Date Type Department Care Team (Late st Contact Info) Description 06/11/2019 Lab Requisition [facility] [address] [place] [address] Unknown, Provider, Social History Tobacco Use Types [...] 0.0 - 4.5 ng/mL 06/12/2019 10:26 EST [facility] Blood VENOUS BLOOD / Unknown 06/11/2019 15:19 EST 06/11/2019 22:00 EST Narrative [facility] - 06/12/2019 10:26 EST NOTE: Serum PSA concentration should not be interpreted as absolute evidence for the presence or absence of malignant disease. Assayed on Siemens [employer]IA [employer] XPT using chemiluminescent technology.??Values obtained by using different assay methods cannot be used interchangeably. Provider Unknown CHEMISTRY & BLOOD GA S ORDERABLES [facility] [address] [place] [address] documented in this encounter Visit Diagnoses Not on filedocumented in this encounter Additional Health Concerns Infection Onset Date Last Indicated Resolved Time R/O COVID-19 11/29/2019 11/29/2019 12/04/2019 22:1 7 EDT documented as of this encounter Care Teams Boiler Coverer Relationship Specialty Start Date End Date Jovani Wharton DO [address] [place], [place] [address] PCP - General 10/11/16 10/17/21 Jorge Chauhan MD [address] [place], [place] [address] PCP - General Family Medicine - Primary Care 10/18/21 11/22/21 Luis Lauren MD [address] [place], [place] [address] PCP - General Family Medicine - Primary Care 11/23/21 11/11/22 Slade Tran [place] [address] PCP - General 11/12/22 documented as of this encounter
--- OUTSIDE RECORDS SUMMARY | 2024-02-18 09:32 | XMS_ITS | Encounter Summary ---
Author Organization [facility] Address [address] [place] [address] Care Team Providers Care Research Biostatistician Name Role Phone DioJovani liu Michel Primary Care Provider [phone]- [phone] Reason for Visit * (Routine/Next Available) - Receiving Office to Obtain Authorization Specialty Diagnoses / Procedures Referred By Devaughn bobo Referred To Contact Procedures XR OUTSIDE IMAGES BODY Imaging, External Referral ID Status Reason Start Date Expiration Date Visits Requested Visits Authorized [id number] Receiving Office to Obtain Authorization 07/26/2021 1 1 Encounter Details Date Type Department Care Team (Latest Contact Info) Description 07/26/2021 22:36 EST - 07/26/2021 23:59 EST Hospital Encounter [facility] Secondary Reads [place] Discharge Disposition: Home or [...] filedocumented in this encounter Care Teams Research Biostatistician Relationship Specialty Start Date End Date Jovani Whartno DO [address] [place] [address] PCP - General 10/11/16 10/17/21 documented as of this encounter
--- OUTSIDE RECORDS SUMMARY | 2024-02-18 09:32 | XMS_ITS | Encounter Summary ---
Author Organization [facility] Address [address] [place] [address] Care Team Providers Care Director Hris Name Role Phone Jovani Wharton DO Primary Care Provider [phone] Reason for Visit * (Routine/Next Available) - Receiving Office to Obtain Authorization Specialty Diagnoses / Procedures Referred By Devaughn bobo Referred To Contact Procedures XR OUTSIDE IMAGES CHEST Imaging, External Referral ID Status Reason Start Date Expiration Date Visits Requested Visits Authorized [id number] Receiving Office to Obtain Authorization 07/26/2021 1 1 Encounter Details Date Type Department Care Team (Latest Contact Info) Description 07/25/2021 - 07/25/2021 23:59 EST Hospital Encounter [facility] Secondary Reads [place] Discharge Disposition: Home [...] filedocumented in this encounter Care Teams Director Hris Relationship Specialty Start Date End Date Jovani Wharton DO [address] [place] [address] PCP - General 10/11/16 10/17/21 documented as of this encounter
--- OUTSIDE RECORDS SUMMARY | 2024-02-18 09:33 | XMS_ITS | Encounter Summary ---
Author Organization [facility] [place] [address] Care Team Providers Care Straightener And Aligner Name Role Phone Slade Tran MD Primary Care Provider [phone] Encounter Details Date Type Department Care Team [...] 9:30 AM EST Hospital En[place] [address] Lawrence Gar MD [facility] [place] [address] 04/06/2024 9:30 AM EST - 04/06/2024 10:00 AM EST [place] [address] Lawrence Gar MD [facility] [place] [address] EGD, UPPER GI ENDOSCOPY (WRVU 2.09) 05/06/2024 9:00 AM EST Office Visit [place] [address] Jovani Richardson MD [facility] [place] [address] A, Nurse Clinician None 11/17/2024 4:20 PM EDT Office [place] [phone] Lawrence Gar MD [facility] [address] Scheduled Procedures Name Priority Associated Diagnoses Date/Ti me EGD, UPPER GI ENDOSCOPY (WRVU 2.09) Sharma's esophagus with high grade dysplasia 04/06/2024 9:30 AM EST documented as of this encounter Visit Diagnoses Not on filedocumented in this encounter Care Teams Straightener And Aligner Relationship Specialty Start Date End Date Slade Tran MD PCP - General Family Medicine 06/19/22 11/05/23 documented as of this encounter
--- OUTSIDE RECORDS SUMMARY | 2024-02-18 09:33 | XMS_ITS | Encounter Summary ---
Author Organization [facility] Address [facility] [place] [address] Care Team Providers Care Ladler Name Role Phone Govind Mendes Primary Care Provider + Encounter Details Date Type Department Care Team (Latest Contact Info) Description 11/06/2023 8:00 AM EDT Office Visit [place] [address] Jovani Richardson MD [facility] [place] [address] A, Nurse Clinician None CKD (chronic kidney [...] feeling well. Please call. Lizet Hayward MBA, room service associate Kidney Disease Nurse Clinician [facility] Nephrology documented in this encounter Progress Notes * Lizet Hayward RN - 11/06/2023 8:00 AM EDT [facility] [address] [place] [address] Reason for Clinic Visit: Systems Review and [...] need one but it is an option. MD/BOOM CRANE OPERATOR A/P: Cr stable. Risk factor modification as [...] body to make more red blood cells. MD/BOOM CRANE OPERATOR A/P: will start aranesp when hgb falls [...] may be too high of a dose. MD/BOOM CRANE OPERATOR A/P: increase lisinopril to 20mg daily Problem: Proteinuria Prot/Cre Ratio (ratio) Date Value 11/06/2023 2.6 Goal: <0.2mg/mg RN Notes: Increase Lisinopril to 20mg daily MD/BOOM CRANE OPERATOR A/P: increase lisinopril, continue SGLT-2i Problem: Bone [...] carbonate Goal: 8.5-10.5mg/dl RN Notes: No changes MD/BOOM CRANE OPERATOR A/P: continue calcitriol Problem: Nutrition Albumin (g/dL) Date Value 11/06/2023 4.1 08/30/2023 4.4 01/21/2023 4.3 Goal: >/= 4.0 gm/dl Body mass index is 26.49 kg/m??. Goal: 20-25 kg/m2 RN Notes: Encouraged healthy eating MD/BOOM CRANE OPERATOR A/P: Problem: Dyslipidemia No results found for: LDLCHOL Goal: <100 mg/dl No results found for: TRIG Goal: <150 mg/dl not on statin not on ezetimibe RN Notes: No changes MD/BOOM CRANE OPERATOR A/P: defer lipid management to PCP Return to CKD clinic: 3 months documented in this encounter Plan of Treatment Upcoming Encounters Date Type Department Care Team (Latest Contact Info) Description 04/06/2024 9:30 AM EST Hospital Encounter Gastroenterology at [place] [phone] Lawrence Gar MD [facility] [place] [address] 04/06/2024 9:30 AM EST - 04/06/2024 10:00 AM EST Surgery Gastroenterology at [place] [phone] Lawrence Gar MD [facility] [place] [address] EGD, UPPER GI ENDOSCOPY (WRVU 2.09) 05/06/2024 9:00 AM EST Office Visit Nephrology Hypertension at [place] [address] Jovani Richardson MD [facility] [place] [address] A, Nurse Clinician None 11/17/2024 4:20 PM EDT Office [place] [address] Lawrence Gar MD [facility] [place] [address] Scheduled Orders Name Type Priority Associated Diagnoses [...] hyperparathyroidism (of renal origin) Sharma's esophagus with high grade dysplasia Sharma's esophagus documented in this encounter Care Teams Ladler Relationship Specialty Start Date End Date Govind Mendes PA [facility] [place] [address] PCP - General Internal Medicine 11/06/23 documented as of this encounter
--- OUTSIDE RECORDS SUMMARY | 2024-02-18 09:33 | XMS_ITS | Encounter Summary ---
Author Organization [facility] Address [facility] [place] [address] Care Team Providers Care Automation And Controls Supervisor Name Role Phone Slade Tran MD Primary Care Provider [phone] Encounter Details Date Type Department Care Team (Late st Contact Info) Description 09/25/2022 4:20 PM EDT Office [place] [address] Lawrence Gar MD [facility] [place] [address] Alcohol-induced chronic pancreatitis Social History Tobacco Use [...] for which she underwent emergency surgery in [facility] but was then transferred to [facility] because of prolonged postoperative issues regarding gastric emptying. His symptomseventually improved after what sounds like a second operation was performed at [facility] for hiatal hernia repair and perhaps [...] a hammer toe. His general surgeon at [facility] is considering repair of a postoperative incisional hernia as well. Current Outpatient Medications on File Prior to Visit Medication Sig Dispense Refill ??? metoprolol succinate XL (Toprol-XL) 50 mg ER 24 hr tablet Take 50 mg by mouth daily. ??? qpuurf-yayrjvgv-kxazstv (Cresadi 6) 6,000-19,000 -30,[address] capsule Take by mouth 3 timesdaily. ??? [...] care regarding chronic pancreatitis. Lawrence Gar MD v/stol landing signal officer Director, GI Endoscopy Section of Gastroenterology [place] [address] Cc:Slade Tran MD [address] [place] [address] [facility] [place] [address] documented in this encounter Plan of Treatment Upcoming Encounters Date Type Department Care Team (Latest Contact Info) Description 04/06/2024 9:30 AM EST Hospital Encounter [place] [phone] Lawrence Gar MD [facility] [place] [address] 04/06/2024 9:30 AM EST - 04/06/2024 10:00 AM EST [place] [phone] Lawrence Gar MD [facility] [place] [address] EGD, UPPER GI ENDOSCOPY (WRVU 2.09) 05/06/2024 9:00 AM EST Office Visit [place] [phone] Jovani Richardson MD [facility] [place] [address] A, Nurse Clinician None 11/17/2024 4:20 PM EDT Office [place] [address] Lawrence Gar MD [facility] [place] [address] Scheduled Procedures Name Priority Associated Diagnoses Date/Ti me EGD, UPPER GI ENDOSCOPY (WRVU 2.09) Sharma's esophagus with high grade dysplasia 04/06/2024 9:30 AM EST documented as of this encounter Visit Diagnoses Diagnosis Alcohol-induced chronic pancreatitis Chronic pancreatitis Sharma's esophagus with high grade dysplasia Sharma's esophagus documented in this encounter Care Teams Automation And Controls Supervisor Relationship Specialty Start Date End Date Slade Tran MD PCP - General Family Medicine 06/19/22 11/05/23 documented as of this encounter
--- OUTSIDE RECORDS SUMMARY | 2024-02-18 09:33 | XMS_ITS | Encounter Summary ---
Author Organization [facility] [place] [address] Care Team Providers Care Floor Framer Name Role Phone Slade Tran MD Primary Care Provider [phone] Encounter Details Date Type Department Care Team (Latest Contact Info) Description 01/21/2023 12:30 PM EDT Laboratory Appointment Lab [address] [place] [phone] Acute worsening of stage 4 chronic kidney [...] (Latest Contact Info) Description 04/06/2024 9:30 AM [facility] Hospital Encounter [place] [phone] Lawrence Gar MD [facility] [place] [address] 04/06/2024 9:30 AM EST - 04/06/2024 10:00 AM EST [place] [address] Lawrence Gar MD [facility] [place] [address] EGD, UPPER GI ENDOSCOPY (WRVU 2.09) 05/06/2024 9:00 AM EST Office Visit [place] [address] Jovani Richardson MD [facility] [place] [address] A, Nurse Clinician None 11/17/2024 4:20 PM EDT Office [place] [address] Lawrence Gar MD [facility] [place] [place] [address] Scheduled Procedures Name Priority Associated Diagnoses Date/Ti me EGD, UPPER GI ENDOSCOPY (WRVU 2.09) Sharma's esophagus with high grade dysplasia 04/06/2024 9:30 AM EST documented as of this encounter Procedures Procedure Name Priority Date/Time Associated Diagnosis Comments PROTEIN/CREATININE RATIO, URINE Routine 01/21/2023 2:04 PM EDT Acute worsening of stage 4 chronic kidney disease CKD (chronic kidney disease) stage 4, GFR 15-29 ml/min Primary hypertension Hyperparathyroidism due to renal insufficiency URINALYSIS DIPSTICK Routine 01/21/2023 2 :04 PM EDT Acute worsening of stage 4 chronic kidney disease CKD (chronic kidney disease) stage 4, GFR 15-29 ml/min Primary hypertension Hyperparathyroidism due to renal insufficiency PTH Routine 01/21/2023 12:55 PM EDT Acute worsening [...] Primary hypertension Hyperparathyroidism due to renal insufficiency CBC (WITH DIFF) Routine 01/21/2023 12:55 PM EDT Acute worsening of stage 4 chronic kidney disease CKD (chronic kidney disease) stage 4, GFR 15-29 ml/min Primary hypertension Hyperparathyroidism due to renal insufficiency PHOSPHORUS Routine 01/21/2023 12:55 PM EDT Acute worsening of stage 4 chronic kidney disease CKD (chronic kidney disease) stage 4, GFR 15-29 ml/min Primary hypertension Hyperparathyroidism due to renal insufficiency ALBUMIN LEVEL Routine 01/21/2023 12:55 PM EDT Acute worsening of stage 4 chronic kidney disease CKD (chronic kidney disease) stage 4, GFR 15-29 ml/min Primary hypertension Hyperparathyroidism due to renal insufficiency BASIC METABOLIC PANEL Routine 01/21/2023 12:55 PM EDT Acute worsening of stage 4 chronic kidney disease CKD (chronic kidney disease) stage 4, GFR 15-29 ml/min Primary hypertension Hyperparathyroidism due to renal insufficiency documented in this encounter Results * (ABNORMAL) Protein/Creatinine Ratio, urine (01/21/2023 2:04 PM EDT) Creatinine, Urine 55 mg/dL [facility] Protein, Urine 84(H) 0 - 12 mg/dL [facility] Protein / Creatinine Ratio, Urine 1.5 ratio [facility] Urine 01/21/2023 2:04 PM EDT 01/21/2023 2:21 PM EDT Narrative Resulting Agency Comment Spec In Lab Jovani Richardson MD URINE ORDERABLES [facility] [place] [address] * (ABNORMAL) Urinalysis without microscopic (01/21/2023 2:04 PM EDT) Glucose, Urine Dipstick Negative Negative mg/dL [facility] Protein, Urine Dipstick 100(A) Negative mg/dL [facility] Bilirubin, Urine Dipstick Negative Negative mg/dL [facility] Comment: Clinical correlation required for positive Urine Bilirubin results as false positive may occur with some drugs and drug related products. If a false positive is suspected a serum total bilirubin should be considered if clinically indicated. Urobilinogen, Urine Dipstick Normal Normal mg/dL [facility] pH, Urn (dipstick) 6.0 5.0 - 8.0 [facility] Blood, Urine Dipstick Negative Negative mg/dL [facility] Ketone, Urine Dipstick Negative Negative mg/dL [facility] Nitrite, Urine Dipstick Negative Negative [facility] Leukocytes, Urine Dipstick Negative Negative [facility] Appearance, Urine Dipstick Clear Clear [facility] Specific Roundup Urine Automated 1.015 1.005 - 1.030 [facility] Color, Urine Dipstick Yellow Yellow [facility] Urine 01/21/2023 2:04 PM EDT 01/21/2023 2:21 PM EDT Narrative Resulting Agency Comment Spec In Lab Jovani Richardson MD URINE ORDERABLES Performing Organization Address City/State/[facility] [place] [address] * Differential, Automated (01/21/2023 12:55 PM EDT) Neutrophil % 65.6 % [facility] Neutrophil Absolute 3.66 1.70 - 6.10 x10(3)/[facility] Lymph % 16.1 % [facility] Lymphocytes Abs 0.9 0.9 - 3.2 x10(3)/[facility] Monocyte % 10.8 % [facility] Monocyte Abs 0.6 0.3 - 0.9 x10(3)/[facility] Eos % 6.6 % [facility] Eosinophils Abs 0.4 0.0 - 0.4 x10(3)/[facility] Basophil % 0.7 % [facility] Baso Absolute 0.0 0.0 - 0.1 x10(3)/[facility] Immature Gran % 0.20 % [facility] Comment: Immature granulocytes(IG's)percentage and absolute count will include metamyelocytes, myelocytes, and promyelocytes. Blood smears from CBCs yielding IG's will be scanned manually for concordance. If this scan disagrees with the automated IG or if promyelocytes are noted, a manual differential will be performed. Immature Gran Absolute 0.01 0.00 - 0.04 x10(3)/[facility] Blood 01/21/2023 12:5 5 PM EDT 01/21/2023 1:11 PM EDT Narrative Resulting Agency Comment Spec In Lab Jovani Richardson MD HEMATOLOGY ORDERABLE S Performing Organization Address City/State/[facility] Co de Phone Number [facility] [place] [address] * (ABNORMAL) Hemogram (01/21/2023 12:55 PM EDT) White Blood Cell 5.6 4.0 - 9.5 x10(3)/mc L [facility] Red Blood Cell 3.09(L) 4.58 - 5.54 x10(6)/mc L [facility] Hemoglobin 9.4(L) 13.7 - 16.5 g/dL [facility] Hematocrit 29.0(L) 40.5 - 48.5 % [facility] Mean Cell Volume 93.9(H) 82.9 - 93.1 fL [facility] Mean Cell Hemoglobin 30.4 27.5 - 32.1 pg [facility] Mean Cell Hemoglobin Concentration 32.4 32.0 - 35.7 g/dL [facility] Platelet 205 145 - 357 x10(3)/mc L [facility] RDW Standard Deviation 50.4(H) 36.0 - 45.0 fL [facility] RDW coefficient of variation 14.6(H) 11.4 - 13.8 % [facility] Mean Platelet Volume 10.7 7.6 - 12.9 fL [facility] NRBC% auto 0.0 % [facility] NRBC Absolute 0.000 0.000 - 0.000 x10(3)/mc L [facility] Blood 01/21/2023 12:5 5 PM EDT 01/21/2023 1:11 PM EDT Narrative Resulting Agency Comment Spec In Lab Jovani Richardson MD HEMATOLOGY ORDERABLE S [facility] [place] [address] * (ABNORMAL) Basic Metabolic Panel (non-fasting) (01/21/2023 12:55 PM EDT) Glucose 93 65 - 199 mg/dL [facility] Comment:Diabetes: >=200 mg/d L plus symptoms Blood Urea Nitrogen 57(H) 10 - 20 mg/dL [facility] Creatinine 2.71(H) 0.80 - 1.50 mg/dL [facility] Sodium 140 135 - 145 mmol/L [facility] Potassium 5.6(H) 3.5 - 5.0 mmol/L [facility] Comment: Please note: ??Patients with WBC >100,000 may have falsely elevated Potassium levels. ??For accurate Potassium quantification in these patients send serum separator tube (gold top) for subsequent determinations. ??Contact the Clinical Chemistry Laboratory if there are any questions. Chloride 112(H) 98 - 107 mmol/L [facility] Carbon Dioxide 15(L) 22 - 31 mmol/L [facility] Anion Gap 13 5 - 15 mmol/L [facility] Calcium 8.4(L) 8.5 - 10.5 mg/dL [facility] Est Glomerular Filtration Rate 25(L) >=60 mL/min/1. 73 m?? [facility] Comment: This patient's estimated GFR [...] In Lab Jovani Richardson MD CHEMISTRY ORDERABLES [facility] [place] [address] * (ABNORMAL) PTH (01/21/2023 12:55 PM EDT) Parathyroid Hormone 126(H) 15 - 65 pg/mL [facility] Blood 01/21/2023 12:5 5 PM EDT 01/21/2023 1:11 PM EDT Narrative Resulting Agency Comment Spec In Lab Jovani Richardson MD CHEMISTRY ORDERABLES [facility] [place] [address] * Albumin Level (01/21/2023 12:55 PM EDT) Albumin 4.3 3.2 - 5.2 g/dL [facility] Blood 01/21/2023 12:5 5 PM EDT 01/21/2023 1:11 PM EDT Narrative Resulting Agency Comment Spec In Lab Jovani Richardson MD CHEMISTRY ORDERABLES Performing Organization Address City/[facility]/ZIP Co de Phone Number [facility] [place] [address] * Phosphorus (01/21/2023 12:55 PM EDT) Phosphorus 3.5 2.5 - 4.5 mg/dL [facility] Blood 01/21/2023 12:5 5 PM EDT 01/21/2023 1:11 PM EDT Narrative Resulting Agency Comment Spec In Lab Jovani Richardson [place] [address] documented in this encounter Visit Diagnoses Diagnosis Acute worsening of stage 4 chronic kidney disease CKD (chronic kidney disease) stage 4, GFR 15-29 ml/min Chronic kidney disease, Stage IV (severe) Primary hypertension Unspecified essential hypertension Hyperparathyroidism due to renal insufficiency Secondary 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
--- OUTSIDE RECORDS SUMMARY | 2024-02-18 09:33 | XMS_ITS | Encounter Summary ---
Author Organization [facility] [place] [address] Care Team Providers Care Weekend Receptionist Name Role Phone Slade Tran MD Primary Care Provider [phone] Encounter Details Date Type Department Care Team (Latest Contact Info) Description 08/30/2023 9:35 AM EDT Laboratory Appointment Lab [address] [place] [address] CKD (chronic kidney disease) stage [...] 9:30 AM EST Hospital Encounter [place] [address] Lawrence Gar MD [facility] [address] 04/06/2024 9:30 AM EST - 04/06/2024 10:00 AM EST Surgery [place] [address] Lawrence Gar MD [facility] [place] [address] EGD, UPPER GI ENDOSCOPY (WRVU 2.09) 05/06/2024 9:00 AM EST Office Visit Ne[place] [phone] Jovani Richardson MD [facility] [place] [address] A, Nurse Clinician None 11/17/2024 4:20 PM EDT Office [place] [address] Lawrence Gar MD [facility] [place] [address] Scheduled Procedures Name Priority Associated Diagnoses Date/Ti ar EGD, UPPER GI ENDOSCOPY (WRVU 2.09) Sharma's esophagus with high grade dysplasia 04/06/2024 9:30 AM EST documented as of this encounter Procedures Procedure Name Priority Date/Time Associated Diagnosis Comments PROTEIN/CREATININE RATIO, URINE Routine 08/30/2023 10:00 AM EDT CKD (chronic kidney disease) stage 4, GFR 15-29 ml/min PTH Routine 08/30/2023 9:52 AM EDT CKD (chronic kidney disease) stage 4, GFR 15-29 ml/min HEMOGRAM Routine 08/30/2023 9:52 AM EDT CKD (chronic kidney disease) stage 4, GFR 15-29 ml/min DIFFERENTIAL, AUTOMATED Routine 08/30/2023 9:52 AM EDT CKD (chronic kidney disease) stage 4, GFR 15-29 ml/min METHYLMALONIC ACID, SERUM Routine 08/30/2023 9:52 AM EDT CKD (chronic kidney disease) stage 4, GFR 15-29 ml/min IRON AND TIBC Routine 08/30/2023 9:52 AM EDT CKD (chronic kidney disease) stage 4, GFR 15-29 ml/min VITAMIN D, 25-HYDROXY Routine 08/30/2023 9:52 AM EDT CKD (chronic kidney disease) stage 4, GFR 15-29 ml/min CBC (WITH DIFF) Routine 08/30/2023 9:52 AM EDT CKD (chronic kidney disease) stage 4, GFR 15-29 ml/min URIC ACID Routine 08/30/2023 9:52 AM EDT CKD (chronic kidney disease) stage 4, GFR 15-29 ml/min PHOSPHORUS Routine 08/30/2023 9:52 AM EDT CKD (chronic kidney disease) stage 4, GFR 15-29 ml/min FOLATE, SERUM Routine 08/30/2023 9:52 AM EDT CKD (chronic kidney disease) stage 4, GFR 15-29 ml/min FERRITIN Routine 08/30/2023 9:52 AM EDT CKD (chronic kidney disease) stage 4, GFR 15-29 ml/min VITAMIN B12 Routine 08/30/2023 9:52 AM EDT CKD (chronic kidney disease) stage 4, GFR 15-29 ml/min ALBUMIN LEVEL Routine 08/30/2023 9:52 AM EDT CKD (chronic kidney disease) stage 4, GFR 15-29 ml/min BASIC METABOLIC PANEL Routine 08/30/2023 9:52 AM EDT CKD (chronic kidney disease) stage 4, GFR 15-29 ml/min documented in this encounter Results * (ABNORMAL) Protein/Creatinine Ratio, urine (08/30/2023 10:00 AM EDT) Creatinine, Urine 72 mg/dL [facility] Protein, Urine 187(H) 0 - 12 mg/dL [facility] Protein / Creatinine Ratio, Urine 2.6 ratio [facility] Urine 08/30/2023 10:0 0 AM EDT 08/30/2023 10:39 AM EDT Narrative Resulting Agency Comment Spec In Lab Jovani Richardson MD URINE ORDERABLES [facility] [place] [address] * Differential, Automated (08/30/2023 9:52 AM EDT) Neutrophil % 66.9 % [facility] Neutrophil Absolute 4.38 1.70 - 6.10 x10(3)/[facility] Lymph % 13.8 % [facility] Lymphocytes Abs 0.9 0.9 - 3.2 x10(3)/[facility] Monocyte % 12.2 % [facility] Monocyte Abs 0.8 0.3 - 0.9 x10(3)/[facility] Eos % 5.7 % [facility] Eosinophils Abs 0.4 0.0 - 0.4 x10(3)/[facility] Basophil % 0.9 % [facility] Baso Absolute 0.1 0.0 - 0.1 x10(3)/[facility] Immature Gran % 0.50 % [facility] Comment: Immature granulocytes(IG's)percentage and absolute count will include metamyelocytes, myelocytes, and promyelocytes. Blood smears from CBCs yielding IG's will be scanned manually for concordance. If this scan disagrees with the automated IG or if promyelocytes are noted, a manual differential will be performed. Immature Gran Absolute 0.03 0.00 - 0.04 x10(3)/[facility] Blood 08/30/2023 9:52 AM EDT 08/30/2023 9:56 AM EDT Narrative Resulting Agency Comment Spec In Lab Jovani Richardson MD HEMATOLOGY ORDERABLE S [facility] [place] [address] * (ABNORMAL) Hemogram (08/30/2023 9:52 AM EDT) White Blood Cell 6.5 4.0 - 9.5 x10(3)/mc L [facility] Red Blood Cell 3.29(L) 4.58 - 5.54 x10(6)/mc L [facility] Hemoglobin 10.2(L) 13.7 - 16.5 g/dL [facility] Hematocrit 31.3(L) 40.5 - 48.5 % [facility] Mean Cell Volume 95.1(H) 82.9 - 93.1 [facility] Mean Cell Hemoglobin 31.0 27.5 - 32.1 pg [facility] Mean Cell Hemoglobin Concentration 32.6 32.0 - 35.7 g/dL [facility] Platelet 170 145 - 357 x10(3)/mc L [facility] RDW Standard Deviation 47.0(H) 36.0 - 45.0 [facility] RDW coefficient of variation 13.3 11.4 - 13.8 % [facility] Mean Platelet Volume 10.3 7.6 - 12.9 [facility] NRBC% auto 0.0 % [facility] NRBC Absolute 0.000 0.000 - 0.000 x10(3)/ L [facility] Blood 08/30/2023 9:52 AM EDT 08/30/2023 9:56 AM EDT Narrative Resulting Agency Comment Spec In Lab Jovani Richardson MD HEMATOLOGY ORDERABLE S [facility] [place] [address] * (ABNORMAL) Basic Metabolic Panel (non-fasting) (08/30/2023 9:52 AM EDT) Glucose 61(L) 65 - 199 mg/dL [facility] Comment:Diabetes: >=200 mg/d L plus symptoms Blood Urea Nitrogen 49(H) 10 - 20 mg/dL [facility] [...] [facility] Carbon Dioxide 17(L) 22 - 31 mmol/L [facility] Anion Gap 14 5 - 15 mmol/L [facility] Calcium 8.7 8.5 - 10.5 mg/dL [facility] Est Glomerular Filtration Rate 20(L) >=60 mL/min/1. 73 m?? [facility] [...] [facility] [place] [address] * Phosphorus (08/30/2023 9:52 AM EDT) Phosphorus 3.8 2.5 - 4.5 mg/dL [facility] Blood 08/30/2023 9:52 AM EDT 08/30/2023 9:56 AM EDT Narrative Resulting Agency Comment Spec In Lab Jovani Richardson MD CHEMISTRY ORDERABLES Performing Organization Address City/[facility]/ZIP Co de Phone Number [facility] [place] [address] * Albumin Level (08/30/2023 9:52 AM EDT) Albumin 4.4 3.2 - 5.2 g/dL [facility] Blood 08/30/2023 9:52 AM EDT 08/30/2023 9:56 AM EDT Narrative Resulting Agency Comment Spec In Lab Jovani Richardson MD CHEMISTRY ORDERABLES Performing Organization Address City/[facility]/ZIP Co de Phone Number [facility] [place] [address] * Uric acid (08/30/2023 9:52 AM EDT) Uric Acid 8.2 3.5 - 8.5 mg/dL [facility] Blood 08/30/2023 9:52 AM EDT 08/30/2023 9:56 AM EDT Narrative Resulting Agency Comment Spec In Lab Jovani Richardson MD CHEMISTRY ORDERABLES [facility] [place] [address] * (ABNORMAL) PTH (08/30/2023 9:52 AM EDT) Parathyroid Hormone 145(H) 15 - 65 pg/mL [facility] Blood 08/30/2023 9:52 AM EDT 08/30/2023 9:56 AM EDT Narrative Resulting Agency Comment Spec In Lab Jovani Richardson MD CHEMISTRY ORDERABLES [facility] [place] [address] * Ferritin (08/30/2023 9:52 AM EDT) Ferritin [...] [facility]/ZIP Co de Phone Number [facility] [place] [address] * Iron and TIBC (08/30/2023 9:52 AM [...] [facility]/ZIP Co de Phone Number [facility] [place] [address] * Vitamin B12 (08/30/2023 9:52 AM EDT) Vitamin B12 608 232 - 1,245 pg/mL [facility] Blood 08/30/2023 9:52 AM EDT 08/30/2023 9:56 AM EDT Narrative Resulting Agency Comment Spec In Lab Jovani Richardson MD CHEMISTRY ORDERABLES Performing Organization Address [facility] de Phone Number [facility] [place] [address] * Folate, serum (08/30/2023 9:52 AM EDT) Folate >20.0 4.8 - 24.2 ng/mL [facility] Blood 08/30/2023 9:52 AM EDT 08/30/2023 9:56 AM EDT Narrative Resulting Agency Comment Spec In Lab Jovani Richardson MD CHEMISTRY ORDERABLES Performing Organization Address [facility] de Phone Number [facility] [place] [address] * Methylmalonic acid, serum (08/30/2023 9:52 AM EDT) Methylmalonic Acid (MAY) 0.38 <=0.40 nmol/mL [facility] Comment: ADDITIONAL INFORMATION This test was developed and its performance characteristics determined by [facility] in a manner consistent with CLIA requirements. This test has not been cleared or approved by the U.S. Food and Drug Administration. Test Performed by: [facility] - [address] [address] Bridge Painter: Todd Worthington M.D. Ph.D.; CLIA# [id number] Blood 08/30/2023 9:52 AM EDT 08/30/2023 3:38 PM EDT Narrative Resulting Agency Comment Spec In Lab Jovani Richardson MD LAB SEND OUT ORDERAB LES Performing Organization Address City/[facility]/ZIP Co de Phone Number [facility] [place] [address] * Vitamin D, 25-Hydroxy (08/30/2023 9:52 AM EDT) Vitamin D Total 25 OH 21 21 - 100 ng/mL [facility] Vit D Interp Insufficient [facility] Blood 08/30/2023 9:52 AM EDT 08/30/2023 9:56 AM EDT Narrative Resulting Agency Comment Spec In Lab Jovani Richardson MD CHEMISTRY ORDERABLES Performing Organization Address [facility] Co de Phone Number [facility] [place] [address] documented in this encounter Visit Diagnoses Diagnosis CKD (chronic kidney disease) stage 4, GFR 15-29 ml/min Chronic kidney disease, Stage IV (severe) Sharma's esophagus with high grade dysplasia Sharma's esophagus documented in this encounter Care Teams Weekend Receptionist Relationship Specialty Start Date End Date Slade Tran MD PCP - General Family Medicine 06/19/22 11/05/23 documented as of this encounter
--- OUTSIDE RECORDS SUMMARY | 2024-02-18 09:33 | XMS_ITS | Encounter Summary ---
Author Organization [facility] [place] [address] Care Team Providers Care Poultry Farmer Egg Name Role Phone Slade Tran MD Primary Care Provider [phone] Encounter Details Date Type Department Care Team (Late st Contact Info) Description 09/30/2023 Orders Only [place] [phone] Karol Iverson, LOYD CKD (chronic kidney disease) [...] 9:30 AM EST Hospital En[place] [phone] Lawrence Gar MD [facility] [place] [address] 04/06/2024 9:30 AM EST - 04/06/2024 10:00 AM EST Surgery [place] [address] Lawrence Gar MD [facility] [place] [address] EGD, UPPER GI ENDOSCOPY (WRVU 2.09) 05/06/2024 9:00 AM EST Office Visit Nephrology Hypertension at [place] [phone] Jovani Richardson MD [facility] [place] [place] [address] A, Nurse Clinician None 11/17/2024 4:20 PM EDT Office Visit Gastroenterology at [place] [phone] Lawrence Gar MD [facility] [place] [address] Scheduled Procedures Name Priority Associated Diagnoses Date/Ti me EGD, UPPER GI ENDOSCOPY (WRVU 2.09) Sharma's esophagus with high grade dysplasia 04/06/2024 9:30 AM EST documented as of this encounter Results * (ABNORMAL) Protein/Creatinine Ratio, urine (11/06/2023 7:48 AM EDT) [facility] Creatinine, Urine 69 mg/dL [facility] Protein, Urine 179(H) 0 - 12 mg/dL [facility] Protein / Creatinine Ratio, Urine 2.6 ratio [facility] Urine 11/06/2023 7:48 AM EDT 11/06/2023 7:58 AM EDT Narrative Resulting Agency Comment Spec In Lab Jovani Richardson MD URINE ORDERABLES [facility] [place] [address] * (ABNORMAL) PTH (11/06/2023 7:37 AM EDT) Parathyroid Hormone 113(H) 15 - 65 pg/mL [facility] Blood 11/06/2023 7:37 AM EDT 11/06/2023 7:49 AM EDT Narrative Resulting Agency Comment Spec In Lab Jovani Richardson MD CHEMISTRY ORDERABLES Performing Organization Address City/[facility] Co de Phone Number [facility] [place] [address] * Uric acid (11/06/2023 7:37 AM EDT) Uric Acid 7.4 3.5 - 8.5 mg/dL [facility] Blood 11/06/2023 7:37 AM EDT 11/06/2023 7:49 AM EDT Narrative Resulting Agency Comment Spec In Lab Jovani Richardson MD CHEMISTRY ORDERABLES Performing Organization Address City/[facility] Co de Phone Number [facility] [place] [address] * Albumin Level (11/06/2023 7:37 AM EDT) Albumin 4.1 3.2 - 5.2 g/dL [facility] Blood 11/06/2023 7:37 AM EDT 11/06/2023 7:49 AM EDT Narrative Resulting Agency Comment Spec In Lab Jovani Richardson MD CHEMISTRY ORDERABLES Performing Organization Address City/[facility] Co de Phone Number [facility] [place] [address] * (ABNORMAL) Phosphorus (11/06/2023 7:37 AM EDT) Phosphorus 4.7(H) 2.5 - 4.5 mg/dL [facility] Blood 11/06/2023 7:37 AM EDT 11/06/2023 7:49 AM EDT Narrative Resulting Agency Comment Spec In Lab Jovani Richardson MD CHEMISTRY ORDERABLES [facility] [place] [address] * (ABNORMAL) Basic Metabolic Panel (non-fasting) (11/06/2023 7:37 AM EDT) Glucose 93 65 - 199 mg/dL [facility] Comment:Diabetes: >=200 mg/d L plus symptoms Blood Urea Nitrogen 56(H) 10 - 20 mg/dL [facility] [...] - 107 mmol/L [facility] Carbon Dioxide 21(L) 22 - 31 mmol/L [facility] Anion Gap 13 5 - 15 mmol/L [facility] Calcium 9.0 8.5 - 10.5 mg/dL [facility] Est Glomerular Filtration Rate 21(L) >=60 mL/min/1. 73 m?? [facility] [...] MD CHEMISTRY ORDERABLES [facility] [place] [address] documented in this encounter Visit Diagnoses Diagnosis CKD (chronic kidney disease) stage 4, GFR 15-29 ml/min Chronic kidney disease, Stage IV (severe) Sharma's esophagus with high grade dysplasia Sharma's esophagus documented in this encounter Care Teams Poultry Farmer Egg Relationship Specialty Start Date End Date Slade Tran MD PCP - General Family Medicine 06/19/22 11/05/23 documented as of this encounter
--- OUTSIDE RECORDS SUMMARY | 2024-02-18 09:33 | XMS_ITS | Encounter Summary ---
Author Organization [facility] [place] [address] Care Team Providers Care Contact Lens Technician Name Role Phone Slade Tran MD Primary Care Provider [phone] Encounter Details Date Type Department Care Team (Latest Contact Info) Description 08/30/2022 9:34 PM EDT - 08/30/2022 11:59 PM EDT [place] [address] Discharge Disposition: Home Social History Tobacco Use [...] Units by mouth once a week. 08/31/2022 [id number] (Creon 6) 6,000-19,000 -30,[address] capsule [...] 9:30 AM EST Hospital Encounter [place] [address] Lawrence Gar MD [facility] [place] [address] 04/06/2024 9:30 AM EST - 04/06/2024 10:00 AM EST Surgery [place] [address] Lawrence Gar MD [facility] [place] [address] EGD, UPPER GI ENDOSCOPY (WRVU 2.09) 05/06/2024 9:00 AM EST Office Visit Nephrology Hypertension at [place] [phone] Jovani Richardson MD [facility] [place] [place] [address] A, Nurse Clinician None 11/17/2024 4:20 PM EDT Office Visit Gastroenterology at [place] [phone] Lawrence Gar MD [facility] [place] [address] Scheduled Procedures Name Priority Associated Diagnoses Date/Ti me EGD, UPPER GI ENDOSCOPY (WRVU 2.09) Sharma's esophagus with high grade dysplasia 04/06/2024 9:30 AM EST documented as of this encounter Procedures Procedure Name Priority Date/Time Associated Diagnosis Comments SURGICAL PATHOLOGY REPORT Routine 08/30/2022 9:39 AM EDT documented in this encounter Results * Surgical Pathology Report (08/30/2022 9:39 AM EDT) Final Diagnosis [id number] ? Location: [facility] The signing pathologist has (i) examined the relevant preparation(s) for the specimen(s) and (ii) rendered or confirmed the diagnosis(es). . ?Surgical Pathology DIAGNOSIS A - Right second (hammer)toe (gross surgical pathology examination). Electronically signed by: ?Nilo Moses MD Verified: ??09/03/2022 13:06 ??Pathologist Performed at: ??-[facility] Dept. of Pathology, [place] [address] Building Rigger: Deana Lopez MD, FCAP, ??CLIA Certificate: [id number] SPECIMEN(S) SUBMITTED A - Right second toe Referring Identifier: [id number] CLINICAL INFORMATION Right second toe deformity. SPECIMEN PROCESSING A - Labeled/Fixativ e: ?? Right second toe, formalin. 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 Lesion: Hammertoe deformity of the PIP joint. Nail: Unremarkable. Skin: Unremarkable. Sections/Proces sing: ?? No sections submitted, gross diagnosis only. ??sns 09/03/2022 1:06 PM EDT [facility] TOE STRUCTURE / Unknown 08/30/2022 9:39 AM EDT 08/30/2022 9:39 AM EDT Narrative Resulting Agency Comment Spec In Lab / WKS Karen Lopez DPJodi PATHOLOGY/CYTOLOGY O RDERABLES [facility] [place] [address] [facility] [place] [address] documented in this encounter Visit Diagnoses Not on filedocumented in this encounter Care Teams Contact Lens Technician Relationship Specialty Start Date End Date Slade Tran MD PCP - General Family Medicine 06/19/22 11/05/23 documented as of this encounter
--- OUTSIDE RECORDS SUMMARY | 2024-02-18 09:33 | XMS_ITS | Encounter Summary ---
Author Organization [facility] Address [facility] [place] [address] Care Team Providers Care Diesel Pile Driver Operator Name Role Phone Slade Tran MD Primary Care Provider [phone] Encounter Details Date Type Department Care Team (Latest Contact Info) Description 04/09/2023 10:40 AM EST Office Visit Ne[place] [address] Jovani Richardson MD [facility] [place] [address] A, Nurse Clinician None CKD (chronic kidney [...] Richardson MD - 04/09/2023 10:40 AM EST [facility] [address] [place] [address] Reason for Clinic Visit: Systems Review and [...] tablet Take 50 mg by mouth daily. [id number] DR (Creon 6) 6,000-19,000 -30,[address] [...] for CKD stage- specific issues. RN Notes: MD/OIL TANK CAR CLEANER A/P: stage 4 CKD secondary to hypertension. Cr up slightly in the face of starting Jiardiance. We discussed the potential for dehydration on this medication as well as the fci benefits inspite of possible short term decreases [...] replacement therapy (Venofer), Last dose: RN Notes: MD/OIL TANK CAR CLEANER A/P: continue oral Fe Problem: Hypertension BP: ()/() Goal (if urine alb:cr ratio is <30mg/g): </= 140/90 Goal (if urine alb:cr ratio is >30mg/g): </= 130/80 Standard Recommendations: Sodium intake < 2 Gm per day. RN Notes: MD/OIL TANK CAR CLEANER A/P: continue current medications. K has normalized; will consider transitioning from lisinopril/amlodipine to lisinopril monotherapy if K remains well controlled. Problem: Proteinuria Prot/Cre Ratio (ratio) Date Value 01/21/2023 1.5 Goal: <0.2mg/mg RN Notes: MD/OIL TANK CAR CLEANER A/P: continue lisinopril, SGLT-2 inhibitor Problem: Bone [...] on calcium carbonate Goal: 8.5-10.5mg/dl RN Notes: MD/OIL TANK CAR CLEANER A/P: continue calcitriol Problem: Nutrition Albumin Date Value 01/21/2023 4.3 g/dL 06/27/2021 4.5 g/dL 04/20/2020 4.5 gm/dL Goal: >/= 4.0 gm/dl There is no height or weight on file to calculate BMI. Goal: 20-25 kg/m2 RN Notes: /OIL TANK CAR CLEANER A/P: Problem: Dyslipidemia No results found for: LDLCHOL Goal: <100 mg/dl No results found for: TRIG Goal: <150 mg/dl Not on statin Not on ezetimibe RN Notes: MD/OIL TANK CAR CLEANER A/P: defer lipid management to Dr. Tran. Return to CKD clinic: 3 months documented in this encounter Plan of Treatment Upcoming Encounters Date Type Department Care Team (Latest Contact Info) Description 04/06/2024 9:30 AM EST Hospital Encounter Gastroenterology at [place] [phone] Lawrence Gar MD [facility] [place] [address] 04/06/2024 9:30 AM EST - 04/06/2024 10:00 AM EST Surgery Gastroenterology at [place] [phone] Lawrence Gar MD [facility] [place] [address] EGD, UPPER GI ENDOSCOPY (WRVU 2.09) 05/06/2024 9:00 AM EST Office Visit Nephrology Hypertension at [place] [phone] Jovani Richardson MD [facility] [place] [address] A, Nurse Clinician None 11/17/2024 4:20 PM EDT Office [place] [phone] Lawrence Gar MD [facility] [place] [address] Scheduled Procedures Name Priority Associated Diagnoses Date/Ti [...] failure, stage 4 (severe) Sharma's esophagus with high grade dysplasia Sharma's esophagus documented in this encounter Care Teams Diesel Pile Driver Operator Relationship Specialty Start Date End Date Slade Tran MD PCP - General Family Medicine 06/19/22 11/05/23 documented as of this encounter
--- OUTSIDE RECORDS SUMMARY | 2024-02-18 09:33 | XMS_ITS | Encounter Summary ---
Author Organization [facility] [place] [address] Care Team Providers Care Music Copyist Name Role Phone Slade Tran MD Primary Care Provider [phone] Encounter Details Date Type Department Care Team (Late st Contact Info) Description 2023 Orders Only Ne[place] [phone] Lizet Hayward RN CKD (chronic kidney disease) [...] 9:30 AM EST Hospital Encounter [place] [address] Lawrence Gar MD [facility] [place] [address] 04/06/2024 9:30 AM EST - 04/06/2024 10:00 AM EST Surgery [place] [address] Lawrence Gar MD [facility] [place] [address] EGD, UPPER GI ENDOSCOPY (WRVU 2.09) 05/06/2024 9:00 AM EST Office Visit [place] [phone] Jovani Richardson MD [facility] [place] [address] A, Nurse Clinician None 11/17/2024 4:20 PM EDT Office [place] [phone] Lawrence Gar MD [facility] [place] [address] Scheduled Procedures Name Priority Associated Diagnoses Date/Ti nv EGD, UPPER GI ENDOSCOPY (WRVU 2.09) Sharma's esophagus with high grade dysplasia 04/06/2024 9:30 AM EST documented as of this encounter Results * (ABNORMAL) Protein/Creatinine Ratio, urine (08/30/2023 10:00 AM EDT) Creatinine, Urine 72 mg/dL [facility] Protein, Urine 187(H) 0 - 12 mg/dL [facility] Protein / Creatinine Ratio, Urine 2.6 ratio [facility] Urine 08/30/2023 10:0 0 AM EDT 08/30/2023 10:39 AM EDT Narrative Resulting Agency Comment Spec In Lab Jovani Richardson MD URINE ORDERABLES [facility] [place] [address] * Vitamin D, 25-Hydroxy (08/30/2023 9:52 AM EDT) [facility] Vitamin D Total 25 OH 21 21 - 100 ng/mL [facility] Vit D Interp Insufficient [facility] Blood 08/30/2023 9:52 AM EDT 08/30/2023 9:56 AM EDT Narrative Resulting Agency Comment Spec In Lab Jovani Richardson MD CHEMISTRY ORDERABLES Performing Organization Address [facility]/ZIP Co de Phone Number [facility] [place] [address] * Methylmalonic acid, serum (08/30/2023 9:52 AM EDT) [facility] Methylmalonic Acid (SEPTEMBER) 0.38 <=0.40 nmol/mL [facility] Comment: ADDITIONAL INFORMATION This test was developed and its performance characteristics determined by [facility] in a manner consistent with CLIA requirements. This test has not been cleared or approved by the U.S. Food and Drug Administration. Test Performed by: [facility] - [address] [address] Energy Auditor: Todd Worthington M.D. Ph.D.; CLIA# [id number] Blood 08/30/2023 9:52 AM EDT 08/30/2023 3:38 PM EDT Narrative Resulting Agency Comment Spec In Lab Jovani Richardson MD LAB SEND OUT ORDERAB LES Performing Organization Address City/[facility]/ZIP Co de Phone Number [facility] [place] [address] * Folate, serum (08/30/2023 9:52 AM EDT) [facility] Folate >20.0 4.8 - 24.2 ng/mL [facility] Blood 08/30/2023 9:52 AM EDT 08/30/2023 9:56 AM EDT Narrative Resulting Agency Comment Spec In Lab Jovani Richardson MD CHEMISTRY ORDERABLES Performing Organization Address [facility]/ZIP Co de Phone Number [facility] [place] [address] * Vitamin B12 (08/30/2023 9:52 AM EDT) Vitamin B12 608 232 - 1,245 pg/mL [facility] Blood 08/30/2023 9:52 AM EDT 08/30/2023 9:56 AM EDT Narrative Resulting Agency Comment Spec In Lab Jovani Richardson MD CHEMISTRY ORDERABLES Performing Organization Address [facility] Co de Phone Number [facility] [place] [address] * Iron and TIBC (08/30/2023 9:52 AM EDT) Iron 75 45 - 160 mcg/dL [facility] TIBC 251 250 - 450 mcg/dL [facility] Iron Saturation 30 20 - 50 % [facility] Blood 08/30/2023 9:52 AM EDT 08/30/2023 9:56 AM EDT Narrative Resulting Agency Comment Spec In Lab Jovani Richardson MD CHEMISTRY ORDERABLES Performing Organization Address [facility] Co de Phone Number [facility] [place] [address] * Ferritin (08/30/2023 9:52 AM EDT) Ferritin 152 31 - 409 ng/mL [facility] Comment: Please note that as of 05/01/2023, the reference intervals for Ferritin have been updated. Blood 08/30/2023 9:52 AM EDT 08/30/2023 9:56 AM EDT Narrative Resulting Agency Comment Spec In Lab Jovani Richardson MD CHEMISTRY ORDERABLES [facility] [place] [address] * (ABNORMAL) PTH (08/30/2023 9:52 AM EDT) Parathyroid Hormone 145(H) 15 - 65 pg/mL [facility] Blood 08/30/2023 9:52 AM EDT 08/30/2023 9:56 AM EDT Narrative Resulting Agency Comment Spec In Lab Jovani Richardson MD CHEMISTRY ORDERABLES Performing Organization Address City/[facility]/ZIP Co de Phone Number [facility] [place] [address] * Uric acid (08/30/2023 9:52 AM EDT) Uric Acid 8.2 3.5 - 8.5 mg/dL [facility] Blood 08/30/2023 9:52 AM EDT 08/30/2023 9:56 AM EDT Narrative Resulting Agency Comment Spec In Lab Jovani Richardson MD CHEMISTRY ORDERABLES Performing Organization Address City/[facility]/ZIP Co de Phone Number [facility] [place] [address] * Albumin Level (08/30/2023 9:52 AM EDT) Albumin 4.4 3.2 - 5.2 g/dL [facility] Blood 08/30/2023 9:52 AM EDT 08/30/2023 9:56 AM EDT Narrative Resulting Agency Comment Spec In Lab Jovani Richardson MD CHEMISTRY ORDERABLES [facility] [place] [address] * Phosphorus (08/30/2023 9:52 AM EDT) Phosphorus 3.8 2.5 - 4.5 mg/dL [facility] Blood 08/30/2023 9:52 AM EDT 08/30/2023 9:56 AM EDT Narrative Resulting Agency Comment Spec In Lab Jovani Richardson MD CHEMISTRY ORDERABLES [facility] [place] [address] * (ABNORMAL) Basic Metabolic Panel (non-fasting) (08/30/2023 9:52 AM EDT) Glucose 61(L) 65 - 199 mg/dL [facility] Comment:Diabetes: >=200 mg/d L plus symptoms Blood Urea Nitrogen 49(H) 10 - 20 mg/dL [facility] Creatinine 3.21(H) 0.80 - 1.50 mg/dL [facility] Sodium 140 135 - 145 mmol/L [facility] Potassium 5.0 3.5 - 5.0 mmol/L [facility] Comment: Please note: ??Patients with WBC >100,000 may have falsely elevated Potassium levels. ??For accurate Potassium quantification in these patients send serum separator tube (gold top) for subsequent determinations. ??Contact the Clinical Chemistry Laboratory if there are any questions. Chloride 109(H) 98 - 107 mmol/L [facility] Carbon Dioxide 17(L) 22 - 31 mmol/L [facility] Anion Gap 14 5 - 15 mmol/L [facility] Calcium 8.7 8.5 - 10.5 mg/dL [facility] Est Glomerular Filtration Rate 20(L) >=60 mL/min/1. 73 m?? [facility] Comment: This patient's estimated GFR [...] In Lab Jovani Richardson MD CHEMISTRY ORDERABLES [facility] [place] [address] documented in this encounter Visit Diagnoses Diagnosis CKD (chronic kidney disease) stage 4, GFR 15-29 ml/min Chronic kidney disease, Stage IV (severe) Sharma's esophagus with high grade dysplasia Sharma's esophagus documented in this encounter Care Teams Music Copyist Relationship Specialty Start Date End Date Slade Tran MD PCP - General Family Medicine 06/19/22 11/05/23 documented as of this encounter
--- OUTSIDE RECORDS SUMMARY | 2024-02-18 09:33 | XMS_ITS | Encounter Summary ---
Author Organization [facility] Address [facility] [place] [address] Care Team Providers Care Group Counselor Name Role Phone Slade Tran MD Primary Care Provider Reason for Referral * Consultation (Routine) - Closed Specialty Diagnoses / Procedures Referred By Devaughn bobo Referred To Contact Nephrology Diagnoses Chronic renal disease, stage IV Slade Tran MD [address] [place] [address] [place] [address] Jovani Richardson MD [facility] [place] [address] Referral ID Status Reason Start Date Expiration Date V isits Requested Visits Authorized [id number] Closed Consult, Test & Treat PCP Updated and/or Approved 11/06/2022 11/06/2023 6 6 Encounter Details Date Type Department Care Team (Late st Contact Info) Description 11/06/2022 Transcribe Orders eDH Incoming Referrals [phone] Slade Tran MD [address] [place] [address] [address] [place], [place] [id number] Chronic renal disease, stage IV Social History [...] 9:30 AM EST Hospital Encounter [place] [address] Lawrence Gar MD [facility] [place] [address] 04/06/2024 9:30 AM EST - 04/06/2024 10:00 AM EST [place] [phone] Lawrence Gar MD [facility] [place] [address] EGD, UPPER GI ENDOSCOPY (WRVU 2.09) 05/06/2024 9:00 AM EST Office Visit [place] [phone] Jovani Richardson MD [facility] [place] [address] A, Nurse Clinician None 11/17/2024 4:20 PM EDT Office [place] [address] Lawrence Gar MD [facility] [place] [address] Scheduled Procedures Name Priority Associated Diagnoses Date/Ti ct EGD, UPPER GI ENDOSCOPY (WRVU 2.09) Sharma's esophagus with high grade dysplasia 04/06/2024 9:30 AM EST Scheduled Referrals Name Type Priority Associated Diagnoses Order Schedule Referral to Nephrology Outpatient Referral Routine Chronic renal disease, stage IV Ordered: 11/06/2022 documented as of this encounter Visit Diagnoses Diagnosis Chronic renal disease, stage IV Chronic kidney disease, Stage IV (severe) Sharma's esophagus with high grade dysplasia Sharma's esophagus documented in this encounter Care Teams Group Counselor Relationship Specialty Start Date End Date Slade Tran MD PCP - General Family Medicine 06/19/22 11/05/23 documented as of this encounter
--- OUTSIDE RECORDS SUMMARY | 2024-02-18 09:33 | XMS_ITS | Encounter Summary ---
Author Organization [place] [address] Care Team Providers Care Substance Abuse Therapist Name Role Phone Govind Mendes Primary Care Provider + Encounter Details Date Type Department Care Team (Late st Contact Info) Description 11/06/2023 Transcribe [place] [phone] Govind Mendes PA [address] [place] [address] [place] [address] Secondary hyperparathyroidism, non-renal Social History [...] EST Hospital Encounter [place] [phone] Lawrence Gar MD [facility] [place] [address] 04/06/2024 9:30 AM EST - 04/06/2024 10:00 AM EST [place] [address] Lawrence Gar MD [facility] [place] [address] EGD, UPPER GI ENDOSCOPY (WRVU 2.09) 05/06/2024 9:00 AM EST Office Visit [place] [phone] Jovani Richardson MD [facility] [place] [address] A, Nurse Clinician None 11/17/2024 4:20 PM EDT Office [place] [phone] Lawrence Gar MD [facility] [place] [address] Scheduled Orders Name Type Priority Associated Diagnoses [...] Diagnosis Secondary hyperparathyroidism, 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
--- OUTSIDE RECORDS SUMMARY | 2024-02-18 09:33 | XMS_ITS | Encounter Summary ---
Author Organization [facility] Address [facility] [place] [address] Care Team Providers Care Inweaver Name Role Phone Slade Tran MD Primary Care Provider [phone] Encounter Details Date Type Department Care Team (Latest Contact Info) Description 01/21/2023 2:00 PM EDT Office Visit Neph[place] [address] Jovani Richardson MD [facility] [place] [place] [address] CKD (chronic kidney disease) stage 4, GFR [...] 2:00 PM EDT Nephrology/Hypertension Clinic Follow-up Note [id number] ID: 67 y.o.year-old male for follow up [...] Tablet Take 5 mg by mouth daily. [id number] DR (Creon 6) 6,000-19,000 -30,[address] [...] 9:30 AM EST Hospital Encounter Gastroenterology at [place] [phone] Lawrence Gar MD [facility] [place] [address] 04/06/2024 9:30 AM EST - 04/06/2024 10:00 AM EST Surgery Gastroenterology at [place] [phone] Lawrence Gar MD [facility] [place] [address] EGD, UPPER GI ENDOSCOPY (WRVU 2.09) 05/06/2024 9:00 AM EST Office Visit Nephrology Hypertension at [place] [phone] Jovani Richardson MD [facility] [place] [place] [address] A, Nurse Clinician None 11/17/2024 4:20 PM EDT Office [place] [address] Lawrence Gar MD [facility] [address] [place] [address] Scheduled Procedures Name Priority Associated Diagnoses Date/Ti [...] Hyperpotassemia Acidosis, metabolic Acidosis Sharma's esophagus with high grade dysplasia Sharma's esophagus documented in this encounter Care Teams Inweaver Relationship Specialty Start Date End Date Slade Tran MD PCP - General Family Medicine 06/19/22 11/05/23 documented as of this encounter
--- OUTSIDE RECORDS SUMMARY | 2024-02-18 09:33 | XMS_ITS | Encounter Summary ---
[place] [address] Care Team Providers Care Helpdesk Specialist Name Role Phone Slade Tran MD Primary Care Provider [phone] Encounter Details Date Type Department Care Team (Late st Contact Info) Description 09/18/2023 Telephone [place] [phone] Karol Iverson, RN Social History Tobacco Use [...] 09/18/2023 3:45 PM EDT S/O: Call from [facility] with critical result. Creatinine 3.9. Full BMP to follow P: Above sent to Dr Richardson for review and recommendation Addendum 4/25/[address] Richardson - Please see if he's taking and PPIs or NSAIDS and stop them if so. Find out where he likes to get labs done; we need a renal US, SPEP/UPEP, serum free light chains. Orders efaxed to [facility] lab and diagnostic imaging Full BMP resulted and entered. CO2 14 and no documented bicarbonate supplementation. Message to Dr Richardson to see if changes recommendations documented in this encounter Plan of Treatment Upcoming Encounters Date Type Department Care Team (Latest Contact Info) Description 04/06/2024 9:30 AM EST Hospital Encounter Gastroenterology at [place] [phone] Lawrence Gar MD [facility] [place] [address] 04/06/2024 9:30 AM EST - 04/06/2024 10:00 AM EST [place] [phone] Lawrence Gar MD [facility] [place] [address] EGD, UPPER GI ENDOSCOPY (WRVU 2.09) 05/06/2024 9:00 AM EST Office Visit Nephrology Hypertension at [place] [phone] Jovani Richardson MD [facility] [place] [address] A, Nurse Clinician None 11/17/2024 4:20 PM EDT Office [place] [phone] Lawrence Gar MD [facility] [place] [address] Scheduled Orders Name Type Priority Associated Diagnoses [...] esophagus documented in this encounter Care Teams Helpdesk Specialist Relationship Specialty Start Date End Date Slade Tran MD PCP - General Family Medicine 06/19/22 11/05/23 documented as of this encounter
--- OUTSIDE RECORDS SUMMARY | 2024-02-18 09:33 | XMS_ITS | Encounter Summary ---
Author Organization [facility] [place] [address] Care Team Providers Care Vice President Of Nursing Name Role Phone Slade Tran MD Primary [...] 9:30 AM EST Hospital [place] [address] Lawrence Gar MD [facility] [place] [address] 04/06/2024 9:30 AM EST - 04/06/2024 10:00 AM EST [place] [address] Lawrence Gar MD [facility] [place] [address] EGD, UPPER GI ENDOSCOPY (WRVU 2.09) 05/06/2024 9:00 AM EST Office Visit [place] [address] Jovani Richardson MD [facility] [place] [address] A, Nurse Clinician None 11/17/2024 4:20 PM EDT Office [place] [phone] Lawrence Gar MD [facility] [place] [address] Scheduled Procedures Name Priority Associated Diagnoses Date/Ti me EGD, UPPER GI ENDOSCOPY (WRVU 2.09) Sharma's esophagus with high grade dysplasia 04/06/2024 9:30 AM EST documented as of this encounter Visit Diagnoses Not on filedocumented in this encounter Care Teams Vice President Of Nursing Relationship Specialty Start Date End Date Slade Tran MD PCP - General Family Medicine 06/19/22 11/05/23 documented as of this encounter
--- OUTSIDE RECORDS SUMMARY | 2024-02-18 09:33 | XMS_ITS | Encounter Summary ---
Author Organization [facility] Address [facility] [place] [address] Care Team Providers Care Senior Analysis Specialist Name Role Phone Slade Tran MD Primary Care Provider [phone] Encounter Details Date Type Department Care Team (Latest Contact Info) Description 08/30/2023 11:30 AM EDT Office Visit [place] [address] Jovani Richardson MD [facility] [place] [address] CKD (chronic kidney disease) stage 4, GFR [...] 11:30 AM EDT Nephrology/Hypertension Clinic Follow-up Note [id number] ID: 68 y.o.year-old male for follow up [...] a severe episode of abdominal pain in [place] in June that landed himin the ED. [...] 9:30 AM EST Hospital Encounter Gastroenterology at [place] [phone] Lawrence Gar MD [facility] [place] [address] 04/06/2024 9:30 AM EST - 04/06/2024 10:00 AM EST Surgery [place] [phone] Lawrence Gar MD [facility] [place] [address] EGD, UPPER GI ENDOSCOPY (WRVU 2.09) 05/06/2024 9:00 AM EST Office Visit Nephrology Hypertension at [place] [phone] Jovani Richardson MD [facility] [place] [address] A, Nurse Clinician None 11/17/2024 4:20 PM EDT Office [place] [address] Lawrence Gar MD [facility] [place] [address] Scheduled Orders Name Type Priority Associated Diagnoses [...] Vitamin D, 25-Hydroxy (11/06/2023 7:37 AM EDT) Vitamin D Total 25 OH 20(L) 21 - 100 ng/mL [facility] Vit D Interp Deficient [facility] Blood 11/06/2023 7:37 AM EDT 11/06/2023 7:49 AM EDT Narrative Resulting Agency Comment Spec In Lab Jovani Richardson MD CHEMISTRY ORDERABLES [facility] [place] [address] * Iron and TIBC (11/06/2023 7:37 AM EDT) Iron 80 45 - 160 mcg/dL [facility] TIBC 266 250 - 450 mcg/dL [facility] Iron Saturation 30 20 - 50 % [facility] Blood 11/06/2023 7:37 AM EDT 11/06/2023 7:49 AM EDT Narrative Resulting Agency Comment Spec In Lab Jovani Richardson MD CHEMISTRY ORDERABLES Performing Organization Address City/[facility]/ZIP Co de Phone Number [facility] [place] [address] * Ferritin (11/06/2023 7:37 AM EDT) Ferritin 97 31 - 409 ng/mL [facility] Comment: Please note that as of 05/01/2023, the reference intervals for Ferritin have been updated. Blood 11/06/2023 7:37 AM EDT 11/06/2023 7:49 AM EDT Narrative Resulting Agency Comment Spec In Lab Jovani Richardson MD CHEMISTRY ORDERABLES Performing Organization Address City/[facility]/ZIP Co de Phone Number [facility] [place] [address] * (ABNORMAL) PTH (11/06/2023 7:37 AM EDT) Parathyroid Hormone 113(H) 15 - 65 pg/mL [facility] Blood 11/06/2023 7:37 AM EDT 11/06/2023 7:49 AM EDT Narrative Resulting Agency Comment Spec In Lab Jovani Richardson MD CHEMISTRY ORDERABLES [facility] [address] documented in this encounter Visit Diagnoses Diagnosis CKD (chronic kidney disease) stage 4, GFR 15-29 ml/min- Primary Chronic kidney disease, Stage IV (severe) Primary hypertension Unspecified essential hypertension Anemia of chronic renal failure, stage 4 (severe) Acidosis, metabolic Acidosis Sharma's esophagus with high grade dysplasia Sharma's esophagus documented in this encounter Care Teams Senior Analysis Specialist Relationship Specialty Start Date End Date Slade Tran MD PCP - General Family Medicine 06/19/22 11/05/23 documented as of this encounter
--- OUTSIDE RECORDS SUMMARY | 2024-02-18 09:33 | XMS_ITS | Encounter Summary ---
[place] [address] Care Team Providers Care Rv Detailer Name Role Phone Slade Tran MD Primary Care Provider [phone] Encounter Details Date Type Department Care Team (Late st Contact Info) Description 09/26/2023 Telephone Nephrology [place] [phone] Karol Iverson RN Social History Tobacco Use [...] AM EST Hospital Encounter [place] [address] Lawrence Gar MD [facility] [place] [address] 04/06/2024 9:30 AM EST - 04/06/2024 10:00 AM EST Surgery [place] [phone] Lawrence Gar MD [facility] [address] EGD, UPPER GI ENDOSCOPY (WRVU 2.09) 05/06/2024 9:00 AM EST Office Visit Nephrology [place] [phone] Jovani Richardson MD [facility] [place] [address] A, Nurse Clinician None 11/17/2024 4:20 PM EDT Office Visit [place] [phone] Lawrence Gar MD [facility] [place] [address] Scheduled Procedures Name Priority Associated Diagnoses Date/Ti me EGD, UPPER GI ENDOSCOPY (WRVU 2.09) Sharma's esophagus with high grade dysplasia 04/06/2024 9:30 AM EST documented as of this encounter Visit Diagnoses Not on filedocumented in this encounter Care Teams Rv Detailer Relationship Specialty Start Date End Date Slade Tran MD PCP - General Family Medicine 06/19/22 11/05/23 documented as of this encounter
--- OUTSIDE RECORDS SUMMARY | 2024-02-18 09:33 | XMS_ITS | Encounter Summary ---
Author Organization Formerly [facility] [place] [address] Care Team Providers Care Sales Performance Manager Name Role Phone Slade Tran MD Primary Care Provider [phone] Encounter Details Date Type Department Care Team (Late st Contact Info) Description 09/25/2023 6:25 PM EDT Ancillary Procedure Radiology Library at [facility] [place] [address] Slade Tran MD [address] [place] [address] [address] [place], [place] [id number] Social History Tobacco Use Types Packs/Day Years [...] 9:30 AM EST Hospital Encounter Gastroenterology at [facility] [phone] Lawrence Gar MD [facility] [place] [address] 04/06/2024 9:30 AM EST - 04/06/2024 10:00 AM EST Surgery [place] [address] Lawrence Gar MD [facility] [place] [address] EGD, UPPER GI ENDOSCOPY (WRVU 2.09) 05/06/2024 9:00 AM EST Office Visit Ne[place] [phone] Jovani Richardson MD [facility] [place] [address] A, Nurse Clinician None 11/17/2024 4:20 PM EDT Office [place] [address] Lawrence Gar MD [facility] [place] [address] Scheduled Procedures Name Priority Associated Diagnoses Date/Ti [...] Ultrasound Study (09/25/2023 6:20 PM EDT) Narrative [facility] - 09/25/2023 6:20 PM EDT This exam is auto-finalizing. It's purpose is for storage only. Slade Tran MD IMG FILM LIBRARY ORD ERABLES [place], [place] documented in this encounter Visit Diagnoses Not on filedocumented in this encounter Care Teams Sales Performance Manager Relationship Specialty Start Date End Date Slade Tran MD PCP - General Family Medicine 06/19/22 11/05/23 documented as of this encounter
--- OUTSIDE RECORDS SUMMARY | 2024-02-18 09:33 | XMS_ITS | Encounter Summary ---
Author Organization [facility] [place] [address] Care Team Providers Care J2Ee Programmer Name Role Phone Govind Mendes Primary Care [...] 9:30 AM EST Hospital Encounter [place] [address] Lawrence Gar MD [facility] [place] [address] 04/06/2024 9:30 AM EST - 04/06/2024 10:00 AM EST Surgery [place] [address] Lawrence Gar MD [facility] [place] [address] EGD, UPPER GI ENDOSCOPY (WRVU 2.09) 05/06/2024 9:00 AM EST Office Visit [place] [address] Jovani Richardson MD [facility] [place] [address] A, Nurse Clinician None 11/17/2024 4:20 PM EDT Office [place] [phone] Lawrence Gar MD [facility] [place] [address] Scheduled Procedures Name Priority Associated Diagnoses Date/Ti me EGD, UPPER GI ENDOSCOPY (WRVU 2.09) Sharma's esophagus with high grade dysplasia 04/06/2024 9:30 AM EST documented as of this encounter Visit Diagnoses Not on filedocumented in this encounter Care Teams J2Ee Programmer Relationship Specialty Start Date End Date Govind Mendes PA [facility] [place] [address] PCP - General Internal Medicine 11/06/23 documented as of this encounter
--- OUTSIDE RECORDS SUMMARY | 2024-02-18 09:33 | XMS_ITS | Encounter Summary ---
Author Organization [facility] [place] [address] Care Team Providers Care Furnace Setter Name Role Phone Govind Mendes Primary Care Provider + Encounter Details Date Type Department Care Team (Latest Contact Info) Description 11/06/2023 7:20 AM EDT Laboratory Appointment Lab [address] [place] [phone] CKD (chronic kidney disease) stage 4, GFR [...] 9:30 AM EST Hospital Encounter [place] [phone] Lawrence Gar MD [facility] [place] [address] 04/06/2024 9:30 AM EST - 04/06/2024 10:00 AM EST [place] [address] Lawrence Gar MD [facility] [place] [address] EGD, UPPER GI ENDOSCOPY (WRVU 2.09) 05/06/2024 9:00 AM EST Office Visit [place] [address] Jovani Richardson MD [facility] [place] [address] A, Nurse Clinician None 11/17/2024 4:20 PM EDT Office [place] [address] Lawrence Gar MD [facility] [place] [address] Scheduled Procedures Name Priority Associated Diagnoses Date/Ti me EGD, UPPER GI ENDOSCOPY (WRVU 2.09) Sharma's esophagus with high grade dysplasia 04/06/2024 9:30 AM EST documented as of this encounter Procedures Procedure Name Priority Date/Time Associated Diagnosis Comments PROTEIN/CREATININE RATIO, URINE Routine 11/06/2023 7:48 AM EDT CKD (chronic kidney disease) stage 4, GFR 15-29 ml/min PTH Routine 11/06/2023 7:37 AM EDT CKD (chronic kidney disease) stage 4, GFR 15-29 ml/min Primary hypertension Anemia of chronic renal failure, stage 4 (severe) Acidosis, metabolic PTH Routine 11/06/2023 7:37 AM EDT CKD (chronic kidney disease) stage 4, GFR 15-29 ml/min HEMOGRAM Routine 11/06/2023 7:37 AM EDT CKD (chronic kidney disease) stage 4, GFR 15-29 ml/min DIFFERENTIAL, AUTOMATED Routine 11/06/2023 7:37 AM EDT CKD (chronic kidney disease) stage 4, GFR 15-29 ml/min GOLD TUBE HOLD Routine 11/06/2023 7:37 AM EDT IRON AND TIBC Routine 11/06/2023 7:37 AM EDT CKD (chronic kidney disease) stage 4, GFR 15-29 ml/min Primary hypertension Anemia of chronic renal failure, stage 4 (severe) Acidosis, metabolic VITAMIN D, 25-HYDROXY Routine 11/06/2023 7:37 AM EDT CKD (chronic kidney disease) stage 4, GFR 15-29 ml/min Primary hypertension Anemia of chronic renal failure, stage 4 (severe) Acidosis, metabolic CBC (WITH DIFF) Routine 11/06/2023 7:37 AM EDT CKD (chronic kidney disease) stage 4, GFR 15-29 ml/min URIC ACID Routine 11/06/2023 7:37 AM EDT CKD (chronic kidney disease) stage 4, GFR 15-29 ml/min PHOSPHORUS Routine 11/06/2023 7:37 AM EDT CKD (chronic kidney disease) stage 4, GFR 15-29 ml/min FERRITIN Routine 11/06/2023 7:37 AM EDT CKD (chronic kidney disease) stage 4, GFR 15-29 ml/min Primary hypertension Anemia of chronic renal failure, stage 4 (severe) Acidosis, metabolic ALBUMIN LEVEL Routine 11/06/2023 7:37 AM EDT CKD (chronic kidney disease) stage 4, GFR 15-29 ml/min BASIC METABOLIC PANEL Routine 11/06/2023 7:37 AM EDT CKD (chronic kidney disease) stage 4, GFR 15-29 ml/min documented in this encounter Results * (ABNORMAL) Protein/Creatinine Ratio, urine (11/06/2023 7:48 AM EDT) Creatinine, Urine 69 mg/dL [facility] Protein, Urine 179(H) 0 - 12 mg/dL [facility] Protein / Creatinine Ratio, Urine 2.6 ratio [facility] Urine 11/06/2023 7:48 AM EDT 11/06/2023 7:58 AM EDT Narrative Resulting Agency Comment Spec In Lab Jovani Richardson MD URINE ORDERABLES Performing Organization Address City/[facility]/ZIP Co de Phone Number [facility] [place] [address] * Gold Tube HOLD (11/06/2023 7:37 AM EDT) Pathologist [facility] Gold Hold Sample in lab. [facility] Blood No Charge / Unknown 11/06/2023 7:37 AM EDT 11/06/2023 7:49 AM EDT Jovani Richardson MD CHEMISTRY ORDERABLES [facility] [place] [address] * Differential, Automated (11/06/2023 7:37 AM EDT) Pathologist [facility] Neutrophil % 62.9 % [facility] Neutrophil Absolute 3.24 1.70 - 6.10 x10(3)/[facility] Lymph % 17.5 % [facility] Lymphocytes Abs 0.9 0.9 - 3.2 x10(3)/[facility] Monocyte % 11.8 % [facility] Monocyte Abs 0.6 0.3 - 0.9 x10(3)/[facility] Eos % 6.2 % [facility] Eosinophils Abs 0.3 0.0 - 0.4 x10(3)/[facility] Basophil % 1.4 % [facility] Baso Absolute 0.1 0.0 - 0.1 x10(3)/[facility] Immature Gran % 0.20 % [facility] Comment: Immature granulocytes(IG's)percentage and absolute count will include metamyelocytes, myelocytes, and promyelocytes. Blood smears from CBCs yielding IG's will be scanned manually for concordance. If this scan disagrees with the automated IG or if promyelocytes are noted, a manual differential will be performed. Immature Gran Absolute 0.01 0.00 - 0.04 x10(3)/[facility] Blood 11/06/2023 7:37 AM EDT 11/06/2023 7:49 AM EDT Narrative Resulting Agency Comment Spec In Lab Jovani Richardson MD HEMATOLOGY ORDERABLE S [facility] [place] [address] * (ABNORMAL) Hemogram (11/06/2023 7:37 AM EDT) White Blood Cell 5.2 4.0 - 9.5 x10(3)/mc L [facility] Red Blood Cell 3.49(L) 4.58 - 5.54 x10(6)/mc L [facility] Hemoglobin 10.7(L) 13.7 - 16.5 g/dL [facility] Hematocrit 33.2(L) 40.5 - 48.5 % [facility] Mean Cell Volume 95.1(H) 82.9 - 93.1 fL [facility] Mean Cell Hemoglobin 30.7 27.5 - 32.1 pg [facility] Mean Cell Hemoglobin Concentration 32.2 32.0 - 35.7 g/dL [facility] Platelet 175 145 - 357 x10(3)/mc L [facility] RDW Standard Deviation 44.9 36.0 - 45.0 fL [facility] RDW coefficient of variation 12.8 11.4 - 13.8 % [facility] Mean Platelet Volume 10.8 7.6 - 12.9 fL [facility] NRBC% auto 0.0 % [facility] NRBC Absolute 0.000 0.000 - 0.000 x10(3)/mc L [facility] Blood 11/06/2023 7:37 AM EDT 11/06/2023 7:49 AM EDT Narrative Resulting Agency Comment Spec In Lab Jovani Richardson MD HEMATOLOGY ORDERABLE S Performing Organization Address City/[facility]/ZIP Co de Phone Number [facility] [place] [address] * (ABNORMAL) PTH (11/06/2023 7:37 AM EDT) Parathyroid Hormone 113(H) 15 - 65 pg/mL [facility] Blood 11/06/2023 7:37 AM EDT 11/06/2023 7:49 AM EDT Narrative Resulting Agency Comment Spec In Lab Jovani Richardson MD CHEMISTRY ORDERABLES Performing Organization Address City/[facility]/ZIP Co de Phone Number [facility] [place] [address] * Ferritin (11/06/2023 7:37 AM EDT) Ferritin 97 31 - 409 ng/mL [facility] Comment: Please note that as of 05/01/2023, the reference intervals for Ferritin have been updated. Blood 11/06/2023 7:37 AM EDT 11/06/2023 7:49 AM EDT Narrative Resulting Agency Comment Spec In Lab Jovani Richardson MD CHEMISTRY ORDERABLES Performing Organization Address City/[facility]/ZIP Co de Phone Number [facility] [place] [place] [address] * Iron and TIBC (11/06/2023 7:37 AM EDT) Pathologist [facility] Iron 80 45 - 160 mcg/dL [facility] TIBC 266 250 - 450 mcg/dL [facility] Iron Saturation 30 20 - 50 % [facility] Blood 11/06/2023 7:37 AM EDT 11/06/2023 7:49 AM EDT Narrative Resulting Agency Comment Spec In Lab Jovani Richardson MD CHEMISTRY ORDERABLES Performing Organization Address City/[facility]/ZIP Co de Phone Number [facility] [place] [address] * (ABNORMAL) Vitamin D, 25-Hydroxy (11/06/2023 7:37 AM EDT) [facility] Vitamin D Total 25 OH 20(L) 21 - 100 ng/mL [facility] Vit D Interp Deficient [facility] Blood 11/06/2023 7:37 AM EDT 11/06/2023 7:49 AM EDT Narrative Resulting Agency Comment Spec In Lab Jovani Richardson MD CHEMISTRY ORDERABLES Performing Organization Address [facility] Co de Phone Number [facility] [place] [address] * (ABNORMAL) Basic Metabolic Panel (non-fasting) (11/06/2023 7:37 AM EDT) [facility] Glucose 93 65 - 199 mg/dL [facility] Comment:Diabetes: >=200 mg/d L plus symptoms Blood Urea Nitrogen 56(H) 10 - 20 mg/dL [facility] Creatinine 3.08(H) 0.80 - 1.50 mg/dL [facility] Sodium 142 135 - 145 mmol/L [facility] Potassium 5.2(H) 3.5 - 5.0 mmol/L [facility] Comment: Please note: ??Patients with WBC >100,000 may have falsely elevated Potassium levels. ??For accurate Potassium quantification in these patients send serum separator tube (gold top) for subsequent determinations. ??Contact the Clinical Chemistry Laboratory if there are any questions. Chloride 108(H) 98 - 107 mmol/L [facility] Carbon Dioxide 21(L) 22 - 31 mmol/L [facility] Anion Gap 13 5 - 15 mmol/L [facility] Calcium 9.0 8.5 - 10.5 mg/dL [facility] Est Glomerular Filtration Rate 21(L) >=60 mL/min/1. 73 m?? [facility] Richardson MD CHEMISTRY ORDERABLES Performing Organization Address City/[facility]/ZIP Co de Phone Number [facility] [place] [address] * (ABNORMAL) Phosphorus (11/06/2023 7:37 AM EDT) Phosphorus 4.7(H) 2.5 - 4.5 mg/dL [facility] Blood 11/06/2023 7:37 AM EDT 11/06/2023 7:49 AM EDT Narrative Resulting Agency Comment Spec In Lab Jovani Richardson MD CHEMISTRY ORDERABLES [facility] [place] [address] * Albumin Level (11/06/2023 7:37 AM EDT) Albumin 4.1 3.2 - 5.2 g/dL [facility] Blood 11/06/2023 7:37 AM EDT 11/06/2023 7:49 AM EDT Narrative Resulting Agency Comment Spec In Lab Jovani Richardson MD CHEMISTRY ORDERABLES [facility] [place] [address] * Uric acid (11/06/2023 7:37 AM EDT) Uric Acid 7.4 3.5 - 8.5 mg/dL [facility] Blood 11/06/2023 7:37 AM EDT 11/06/2023 7:49 AM EDT Narrative Resulting Agency Comment Spec In Lab Jovani Richardson MD CHEMISTRY ORDERABLES [facility] [place] [address] * (ABNORMAL) PTH (11/06/2023 7:37 AM EDT) Parathyroid Hormone 113(H) 15 - 65 pg/mL [facility] Blood 11/06/2023 7:37 AM EDT 11/06/2023 7:49 AM EDT Narrative Resulting Agency Comment Spec In Lab Jovani Richardson MD CHEMISTRY ORDERABLES [facility] [place] [address] documented in this encounter Visit Diagnoses Diagnosis CKD (chronic kidney disease) stage 4, GFR 15-29 ml/min Chronic kidney disease, Stage IV (severe) Primary hypertension Unspecified essential hypertension Anemia of chronic renal failure, stage 4 (severe) Acidosis, metabolic Acidosis Sharma's esophagus with high grade dysplasia Sharma's esophagus documented in this encounter Care Teams Furnace Setter Relationship Specialty Start Date End Date Govind Mendes PA [address] [place] [address] PCP - General Internal Medicine 11/06/23 documented as of this encounter
--- OUTSIDE RECORDS SUMMARY | 2024-02-18 09:33 | XMS_ITS | Encounter Summary ---
[place] [address] Care Team Providers Care Advertising Editor Name Role Phone Slade Tran MD Primary Care Provider [phone] Encounter Details Date Type Department Care Team (Late st Contact Info) Description 08/30/2023 Telephone G[place]ology [place] [phone] Nena Edwards Social History Tobacco Use Types [...] - 08/30/2023 10:15 AM EDT Mathew Mendez [id number] Diagnosis/Indication: 3 year Please review patient chart [...] before? Yes: Date colo 5/27/21 , egd [facility] over 5 years If yes, [...] your procedure. 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 *Please Verify the height [...] 9:30 AM EST Hospital Encounter G[place] [address] Lawrence Gar MD [facility] [place] [address] 04/06/2024 9:30 AM EST - 04/06/2024 10:00 AM EST Surgery G[place] [address] Lawrence Gar MD [facility] [place] [address] EGD, UPPER GI ENDOSCOPY (WRVU 2.09) 05/06/2024 9:00 AM EST Office Visit Nephrology [place] [address] Jovani Richardson MD [facility] [place] [address] A, Nurse Clinician None 11/17/2024 4:20 PM EDT Office Visit G[place] [address] Lawrence Gar MD [facility] [place] [address] Scheduled Procedures Name Priority Associated Diagnoses Date/Ti me EGD, UPPER GI ENDOSCOPY (WRVU 2.09) Sharma's esophagus with high grade dysplasia 04/06/2024 9:30 AM EST documented as of this encounter Visit Diagnoses Not on filedocumented in this encounter Care Teams Advertising Editor Relationship Specialty Start Date End Date Slade Tran MD PCP - General Family Medicine 06/19/22 11/05/23 documented as of this encounter
--- OUTSIDE RECORDS SUMMARY | 2024-02-18 09:33 | XMS_ITS | Encounter Summary ---
[place] [address] Care Team Providers Care Shank Skinner Name Role Phone Slade Tran MD Primary Care Provider [phone] Encounter Details Date Type Department Care Team (Late st Contact Info) Description 09/11/2023 Telephone [place] [phone] Lui Sanchez RN Social History Tobacco Use [...] S/O: RN received call from Rakesh at [facility] lab with critical lab value for [...] 9:30 AM EST Hospital Encounter [place] [phone] Lawrence Gar MD [facility] [place] [address] 04/06/2024 9:30 AM EST - 04/06/2024 10:00 AM EST Surgery [place] [phone] Lawrence Gar MD [facility] [place] [address] EGD, UPPER GI ENDOSCOPY (WRVU 2.09) 05/06/2024 9:00 AM EST Office Visit Nephrology Hypertension at [place] [phone] Jovani Richardson MD [facility] [place] [address] A, Nurse Clinician None 11/17/2024 4:20 PM EDT Office [place] [phone] Lawrence Gar MD [facility] [place] [address] Scheduled Procedures Name Priority Associated Diagnoses Date/Ti me EGD, UPPER GI ENDOSCOPY (WRVU 2.09) Sharma's esophagus with high grade dysplasia 04/06/2024 9:30 AM EST documented as of this encounter Visit Diagnoses Not on filedocumented in this encounter Care Teams Shank Skinner Relationship Specialty Start Date End Date Slade Tran MD PCP - General Family Medicine 06/19/22 11/05/23 documented as of this encounter
--- OUTSIDE RECORDS SUMMARY | 2024-02-18 09:33 | XMS_ITS | Encounter Summary ---
Author Organization [facility] Address [facility] [place] [address] Care Team Providers Care Lead Painter Name Role Phone Slade Tran MD Primary Care Provider [phone] Encounter Details Date Type Department Care Team (Late st Contact Info) Description 09/19/2023 External Results Nephrology [place] [phone] Karol Iverson RN Social History Tobacco Use [...] 9:30 AM EST Hospital Encounter [place] [address] Lawrence Gar MD [facility] [place] [address] 04/06/2024 9:30 AM EST - 04/06/2024 10:00 AM EST Surgery [place] [phone] Lawrence Gar MD [facility] [place] [address] EGD, UPPER GI ENDOSCOPY (WRVU 2.09) 05/06/2024 9:00 AM EST Office Visit Nephrology [place] [address] Jovnai Richardson MD [facility] [place] [place] [address] A, Nurse Clinician None 11/17/2024 4:20 PM EDT Office Visit Gastroenterology at [place] [phone] Lawrence Gar MD [facility] [place] [place] [address] Scheduled Procedures Name Priority Associated Diagnoses Date/Ti ri EGD, UPPER GI ENDOSCOPY (WRVU 2.09) Sharma's esophagus with high grade dysplasia 04/06/2024 9:30 AM EST documented as of this encounter Procedures Procedure Name Priority Date/Time Associated Diagnosis Comments BASIC METABOLIC PANEL Routine 09/18/2023 documented in this encounter Results * Basic Metabolic Panel (non-fasting) (09/18/2023) Glucose 79 Blood Urea Nitrogen 58 Creatinine 3.9 Est Glomerular Filtration Rate 15.9 Sodium 141 Potassium 4.9 Chloride 110 Carbon Dioxide 14 Calcium 8.5 Blood 09/18/2023 Historical Provider CHEMISTRY ORDERAB LES documented in this encounter Visit Diagnoses Not on filedocumented in this encounter Care Teams Lead Painter Relationship Specialty Start Date End Date Slade Tran MD PCP - General Family Medicine 06/19/22 11/05/23 documented as of this encounter
--- OUTSIDE RECORDS SUMMARY | 2024-02-18 09:33 | XMS_ITS | Encounter Summary ---
Author Organization [facility] [place] [address] Care Team Providers Care Wall Cleaner Name Role Phone Slade Tran MD Primary Care Provider [phone] Encounter Details Date Type Department Care Team (Late st Contact Info) Description 09/19/2023 Telephone Nephrology [place] [address] Karol Iverson RN Social History [...] (Latest Contact Info) Description 04/06/2024 9:30 AM [facility] Hospital Encounter [place] [address] Lawrence Gar MD [facility] [place] [address] 04/06/2024 9:30 AM EST - 04/06/2024 10:00 AM EST Surgery Gastroenterology at [place] [phone] Lawrence Gar MD [facility] [place] [address] EGD, UPPER GI ENDOSCOPY (WRVU 2.09) 05/06/2024 9:00 AM EST Office Visit Nephrology Hypertension at [place] [phone] Jovani Richardson MD [facility] [place] [address] A, Nurse Clinician None 11/17/2024 4:20 PM EDT Office Visit Gastroenterology at [place] [phone] Lawrence Gar MD [facility] [place] [address] Scheduled Procedures Name Priority Associated Diagnoses Date/Ti me EGD, UPPER GI ENDOSCOPY (WRVU 2.09) Sharma's esophagus with high grade dysplasia 04/06/2024 9:30 AM EST documented as of this encounter Visit Diagnoses Not on filedocumented in this encounter Care Teams Wall Cleaner Relationship Specialty Start Date End Date Slade Tran MD PCP - General Family Medicine 06/19/22 11/05/23 documented as of this encounter
--- OUTSIDE RECORDS SUMMARY | 2024-02-18 09:33 | XMS_ITS | Encounter Summary ---
Author Organization Formerly [facility] [place] [address] Care Team Providers Care Mig Tig Welder Name Role Phone Govind Mendes Primary Care [...] 3.26) Lawrence Gar MD [facility] [place] [address] [facility] Referral ID Status Reason Start Date Expiration Date Visits Re quested Visits Authorized [id number] 1 1 Encounter Details Date Type Department Care Team (Latest Contact Info) Description 11/12/2023 9:46 AM EDT - 11/12/2023 12:10 PM EDT Hospital En[place] [address] Lawrence Gra MD [facility] [place] [address] Discharge Disposition: Home Social History Tobacco Use [...] occurs, please contact your Doctor. Please call [phone] before 8pm Mon-Fri with problems, questions or concerns. If you call after 8pm or on weekends, call the Hospital at [phone] and ask to speak to the Salon Professional retail consultant and the slice plug cutter operator helper will contact that person for you. When should you call for help? Call [phone] anytime you think you may need emergency [...] any problems. Where can you learn more? [facility] View your After Visit Summary and more online at [email or web address] If you would like to provide feedback about your hospital experience, please call the Office of Patient and Family Relations at . If you have received this After Visit Summary in error, please immediately return it in person to the department, or notify the [facility] Privacy Office by calling toll free at between the hours of 8AM and 5PM to arrange for our retrieval of the documents at no cost to you. Content Version: 12.2 ?? 7821-0142 [employer]. Care instructions adapted under license by [facility]. If you have questions about a medical condition or this instruction, always ask your healthcare professional. [employer] disclaims any warranty or liability for your [...] the day after the procedure, use an kait-yfq-nczbeix spray to numb your throat. Sucking on [...] occurs, please contact your Doctor. Please call [phone] before 8pm Mon-Fri with problems, questions or concerns. If you call after 8pm or on weekends, call the Hospital at [phone] and ask to speak to the Salon Professional retail consultant and the slice plug cutter operator helper will contact that person for you. When should you call for help? Call [phone] anytime you think you may need emergency [...] any problems. Where can you learn more? [facility] View your After Visit Summary and more online at [email or web address] If you would like to provide feedback about your hospital experience, please call the Office of Patient and Family Relations at . If you have received this After Visit Summary in error, please immediately return it in person to the department, or notify the [facility] Privacy Office by calling toll free at between the hours of 8AM and 5PM to arrange for our retrieval of the documents at no cost to you. Content Version: 12.2 ?? 3360-1939 [employer]. Care instructions adapted under license by [facility]. If you have questions about a medical condition or this instruction, always ask your healthcare professional. [employer] disclaims any warranty or liability for your [...] the day after the procedure, use an slzw-tas-xgtruat spray to numb your throat. Sucking on [...] occurs, please contact your Doctor. Please call [phone] before 8pm Mon-Fri with problems, questions or concerns. If you call after 8pm or on weekends, call the Hospital at [phone] and ask to speak to the Salon Professional retail consultant and the slice plug cutter operator helper will contact that person for you. When should you call for help? Call [phone] anytime you think you may need emergency [...] any problems. Where can you learn more? [facility] View your After Visit Summary and more online at [email or web address] If you would like to provide feedback about your hospital experience, please call the Office of Patient and Family Relations at . If you have received this After Visit Summary in error, please immediately return it in person to the department, or notify the [facility] Privacy Office by calling toll free at between the hours of 8AM and 5PM to arrange for our retrieval of the documents at no cost to you. Content Version: 12.2 ?? 6941-1391 [employer]. Care instructions adapted under license by [facility]. If you have questions about a medical condition or this instruction, always ask your healthcare professional. [employer] disclaims any warranty or liability for your [...] for Sharma's ablation within next 1-2 mos. Etters rotary5 yrs. documented in this encounter H&P [...] 9:30 AM EST Hospital Encounter Gastroenterology at [place] [phone] Lawrence Gar MD [facility] [place] [address] 04/06/2024 9:30 AM EST - 04/06/2024 10:00 AM EST [place] [phone] Lawrence Gar MD [facility] [place] [address] EGD, UPPER GI ENDOSCOPY (WRVU 2.09) 05/06/2024 9:00 AM EST Office Visit Nephrology Hypertension at [place] [phone] Jovani Richardson MD [facility] [place] [address] A, Nurse Clinician None 11/17/2024 4:20 PM EDT Office [place] [address] Lawrence Gar MD [facility] [place] [address] Scheduled Procedures Name Priority Associated Diagnoses Date/Ti [...] 11:23 AM EDT Colonoscopy, Remv Lesn, Snare ([id number]) 11/12/2023 10:48 AM EDT 3 year Upper Gi Endoscopy, Biopsy ([id number]) 11/12/2023 10:48 AM EDT 3 year UPPER GI ENDOSCOPY Routine 11/12/2023 10 :28 AM EDT COLONOSCOPY Routine 11/12/2023 10:27 AM EDT documented in this encounter Results * (ABNORMAL) Surgical Pathology Report (11/12/2023 11:23 AM EDT) Final Diagnosis [id number] ? Location: 4T; EA06; A The signing [...] Shyla Verified: ??11/26/2023 14:50 ??Pathologist Performed at: ??-[facility] Dept. of [place]ology, [place] [address] Signal Integrity Engineer: Deana Lopez MD, FCAP, ??CLIA Certificate: [id number] DISCUSSION The case was reviewed at the [...] labeled B1. ??ajw(A) 11/26/2023 2:50 PM EDT [facility] GI Biopsy 11/12/2023 11:2 3 AM EDT 11/12/2023 11:23 AM EDT GI Biopsy 11/12/2023 11:2 3 AM EDT 11/12/2023 11:23 AM EDT Lawrence Gar MD PATHOLOGY/CYTOLOGY O RDERAXIN [facility] [place] [place] [address] * Specimen to Pathology (11/12/2023 11:23 AM EDT) AP Specimen 11/12/2023 11:2 3 AM EDT 11/12/2023 11:23 AM EDT Narrative [facility] - 11/12/2023 11:23 AM EDT Specimen requisition ordered. ??Separate Pathology report to follow Lawrence Gar MD PATHOLOGY/CYTOLOGY O SONIYA Performing Organization Address [facility] Co de Phone Number [facility] [place] [place] [address] * Specimen to Pathology (11/12/2023 11:23 AM EDT) AP Specimen 11/12/2023 11:2 3 AM EDT 11/12/2023 11:23 AM EDT Narrative [facility] - 11/12/2023 11:23 AM EDT Specimen requisition ordered. ??Separate Pathology report to follow Lwarence Gar MD PATHOLOGY/CYTOLOGY O SONIYA Performing Organization Address [facility] de Phone Number [facility] [place] [address] * UPPER GI ENDOSCOPY (11/12/2023 10:28 AM EDT) UPPER GI ENDOSCOPY [facility] Endoscopy ___ Procedure Date: 11/12/2023 10:28 AM ? Patient Name: Mathew Mendez ? N: [id number] ? Date of : 1955 ? Age: 68 ? Order #: [id number] ? Instrument Name: [id number]- [id number] ? ___ Procedure: ? Upper GI endoscopy [...] * COLONOSCOPY (11/12/2023 10:27 AM EDT) COLONOSCOPY [facility] Endoscopy ___ Procedure Date: 11/12/2023 10:27 AM ? Patient Name: Mathew Mendez ? Date of : 1955 ? Age: 68 ? Order #: [id number] ? Instrument Name: [id number]- [id number] ? ___ Procedure: ? Colonoscopy Indications: ? High risk colon cancer ? surveillance: Personal history of ? colonic polyps Providers: ? Lawrence Gar MD, Adore Wilson ? Todd Vanegas MD: ?Slade Marc Medicines: ? Propofol per Anesthesia Complications: ? [...] ? was evaluated using the BBPS ? ([place] Bowel Preparation Scale) ? with scores of: [...] CRNA) documented in this encounter Care Teams Mig Tig Welder Relationship Specialty Start Date End Date Govind Mendes PA [facility] [place] [address] PCP - General Internal Medicine 11/06/23 documented as of this encounter
--- OUTSIDE RECORDS SUMMARY | 2024-02-18 09:33 | XMS_ITS | Encounter Summary ---
Author Organization [facility] Address [facility] [place] [address] Care Team Providers Care Hydroponics Worker Name Role Phone Slade Tran MD Primary Care Provider [phone] Encounter Details Date Type Department Care Team (Late st Contact Info) Description 09/25/2023 External Results [place] [phone] Karol Iverson RN Social History Tobacco Use [...] 9:30 AM EST Hospital En[place] [address] Lawrence Gar MD [facility] [place] [address] 04/06/2024 9:30 AM EST - 04/06/2024 10:00 AM EST [place] [phone] Lawrence Gar MD [facility] [place] [place] [address] EGD, UPPER GI ENDOSCOPY (WRVU 2.09) 05/06/2024 9:00 AM EST Office Visit [place] [address] Jovani Richardson MD [facility] [place] [address] A, Nurse Clinician None 11/17/2024 4:20 PM EDT Office [place] [phone] Lawrence Gar MD [facility] [place] [address] Scheduled Procedures Name Priority Associated Diagnoses Date/Ti ca EGD, UPPER GI ENDOSCOPY (WRVU 2.09) Sharma's esophagus with high grade dysplasia 04/06/2024 9:30 AM EST documented as of this encounter Procedures Procedure Name Priority Date/Time Associated Diagnosis Comments PROTEIN ELECTROPHORESIS, URINE, RANDOM Routine 09/23/2023 PROTEIN ELECTROPHORESIS, SERUM Routine 09/23/2023 BASIC METABOLIC PANEL Routine 09/23/2023 documented in this encounter Results * Protein Electrophoresis, urine, random (09/23/2023) Protein, Urine 276 U Alb Conc, Random 69.2 U Albumin 191 Globulin, Urine 85 UPEP Comments negative forfree light chains Urine 09/23/2023 Historical Provider URINE ORDERABLES * Protein Electrophoresis, serum (09/23/2023) Total Prot Electrophoresis 6.6 Albumin Electrophoresis 61.9 Alpha 1 Globulin 4.5 Alpha 2 Globulin 12.3 Beta Globulin 10.3 SPEP Comments No apparent monoclonal protein seen on serum electrophoresis Immunoglobulin G 671 IgA 144 IgM 120 Blood 09/23/2023 Historical Provider CHEMISTRY ORDERAB LES * Basic Metabolic Panel (non-fasting) (09/23/2023) Glucose 166 Blood Urea Nitrogen 47 Creatinine 3.5 Est Glomerular Filtration Rate 18.12 Sodium 141 Potassium 4.8 Chloride 106 Carbon Dioxide 23 Calcium 7.9 Blood 09/23/2023 Historical Provider CHEMISTRY ORDERAB LES documented in this encounter Visit Diagnoses Not on filedocumented in this encounter Care Teams Hydroponics Worker Relationship Specialty Start Date End Date Slade Tran MD PCP - General Family Medicine 06/19/22 11/05/23 documented as of this encounter
--- OUTSIDE RECORDS SUMMARY | 2024-02-18 09:33 | XMS_ITS | Encounter Summary ---
Author Organization [facility] [place] [address] Care Team Providers Care Chisel Mortiser Operator Name Role Phone Slade Tran MD Primary Care Provider [phone] Encounter Details Date Type Department Care Team [...] 9:30 AM EST Hospital Encounter [place] [address] Lawrence Gar MD [facility] [place] [address] 04/06/2024 9:30 AM EST - 04/06/2024 10:00 AM EST Surgery [place] [address] Lawrence Gar MD [facility] [place] [address] EGD, UPPER GI ENDOSCOPY (WRVU 2.09) 05/06/2024 9:00 AM EST Office Visit [place]phrology [place] [address] Jovani Richardson MD [facility] [place] [address] A, Nurse Clinician None 11/17/2024 4:20 PM EDT Office Visit [place] [phone] Lawrence Gar MD [facility] [place] [address] Scheduled Procedures Name Priority Associated Diagnoses Date/Ti me EGD, UPPER GI ENDOSCOPY (WRVU 2.09) Sharma's esophagus with high grade dysplasia 04/06/2024 9:30 AM EST documented as of this encounter Visit Diagnoses Not on filedocumented in this encounter Care Teams Chisel Mortiser Operator Relationship Specialty Start Date End Date Slade Tran MD PCP - General Family Medicine 06/19/22 11/05/23 documented as of this encounter
--- OUTSIDE RECORDS SUMMARY | 2024-02-18 09:33 | XMS_ITS | Encounter Summary ---
Author Organization [facility] [place] [address] Care Team Providers Care Cold Molding Press Operator Name Role Phone Slade Tran MD Primary Care Provider [phone] Encounter Details Date Type Department Care Team (Late st Contact Info) Description 03/05/2023 Telephone [place] [address] Christiana Haq Social History Tobacco [...] (Latest Contact Info) Description 04/06/2024 9:30 AM [facility] Hospital En[place] [address] [facility] [place] [address] 04/06/2024 9:30 AM EST - 04/06/2024 10:00 AM EST Surgery Gastroenterology at [place] [phone] [facility] [place] [address] EGD, UPPER GI ENDOSCOPY (WRVU 2.09) 05/06/2024 9:00 AM EST Office Visit Nephrology Hypertension at [place] [phone] [facility] [place] [address] A, Nurse Clinician None 11/17/2024 4:20 PM EDT Office Visit Gastroenterology at [place] [phone] [facility] [place] [address] Scheduled Procedures Name Priority Associated Diagnoses Date/Ti me EGD, UPPER GI ENDOSCOPY (WRVU 2.09) Sharma's esophagus with high grade dysplasia 04/06/2024 9:30 AM EST documented as of this encounter Visit Diagnoses Not on filedocumented in this encounter Care Teams Cold Molding Press Operator Relationship Specialty Start Date End Date Slade Tran MD PCP - General Family Medicine 06/19/22 11/05/23 documented as of this encounter
--- OUTSIDE RECORDS SUMMARY | 2024-02-18 09:33 | XMS_ITS | Encounter Summary ---
Author Organization [facility] [place] [address] Care Team Providers Care Bioprocess Engineer Name Role Phone Slade Tran MD Primary Care Provider [phone] Encounter Details Date Type Department Care Team [...] 9:30 AM EST Hospital En[place] [address] Lawrence Gar MD [facility] [place] [address] 04/06/2024 9:30 AM EST - 04/06/2024 10:00 AM EST [place] [address] Lawrence Gar MD [facility] [place] [address] EGD, UPPER GI ENDOSCOPY (WRVU 2.09) 05/06/2024 9:00 AM EST Office Visit [place] [address] Jovani Richardson MD [facility] [place] [address] A, Nurse Clinician None 11/17/2024 4:20 PM EDT Office [place] [phone] Lawrence Gar MD [facility] [place] [address] Scheduled Procedures Name Priority Associated Diagnoses Date/Ti me EGD, UPPER GI ENDOSCOPY (WRVU 2.09) Sharma's esophagus with high grade dysplasia 04/06/2024 9:30 AM EST documented as of this encounter Visit Diagnoses Not on filedocumented in this encounter Care Teams Bioprocess Engineer Relationship Specialty Start Date End Date Slade Tran MD PCP - General Family Medicine 06/19/22 11/05/23 documented as of this encounter
--- OUTSIDE RECORDS SUMMARY | 2024-02-18 09:33 | XMS_ITS | Encounter Summary ---
Author Organization [facility] Address [facility] [place] [address] Care Team Providers Care Visual Journalist Name Role Phone Slade Tran MD Primary Care Provider [phone] Encounter Details Date Type Department Care Team (Late st Contact Info) Description 09/24/2023 External Results Ne[place] [phone] Karol Iverson RN Social History Tobacco Use [...] 9:30 AM EST Hospital En[place] [address] Lawrence Gar MD [facility] [place] [address] 04/06/2024 9:30 AM EST - 04/06/2024 10:00 AM EST [place] [phone] Lawrence Gar MD [facility] [place] [place] [address] EGD, UPPER GI ENDOSCOPY (WRVU 2.09) 05/06/2024 9:00 AM EST Office Visit [place] [address] Jovani Richardson MD [facility] [place] [address] A, Nurse Clinician None 11/17/2024 4:20 PM EDT Office Visit Gastroenterology at [place] [phone] Lawrence Gar MD [facility] [place] [address] Scheduled Procedures Name Priority Associated Diagnoses Date/Ti nm EGD, UPPER GI ENDOSCOPY (WRVU 2.09) Sharma's esophagus with high grade dysplasia 04/06/2024 9:30 AM EST documented as of this encounter Procedures Procedure Name Priority Date/Time Associated Diagnosis Comments BASIC METABOLIC PANEL Routine 09/11/2023 documented in this encounter Results * Basic Metabolic Panel (non-fasting) (09/11/2023) Glucose 97 Blood Urea Nitrogen 68 Creatinine 3.9 Est Glomerular Filtration Rate 15.9 Sodium 140 Potassium 5.7 Chloride 108 Carbon Dioxide 16 Calcium 8.3 Blood 09/11/2023 Historical Provider CHEMISTRY ORDERAB LES documented in this encounter Visit Diagnoses Not on filedocumented in this encounter Care Teams Visual Journalist Relationship Specialty Start Date End Date Slade Tran MD PCP - General Family Medicine 06/19/22 11/05/23 documented as of this encounter
--- OUTSIDE RECORDS SUMMARY | 2024-02-18 09:33 | XMS_ITS | Encounter Summary ---
Author Organization [facility] [place] [address] Care Team Providers Care Stablehand Name Role Phone Slade Tran MD Primary Care Provider [phone] Encounter Details Date Type Department Care Team [...] 9:30 AM EST Hospital Encounter [place] [address] Lawrence Gar MD [facility] [place] [address] 04/06/2024 9:30 AM EST - 04/06/2024 10:00 AM EST [place] [address] Lawrence Gar MD [facility] [place] [address] EGD, UPPER GI ENDOSCOPY (WRVU 2.09) 05/06/2024 9:00 AM EST Office Visit [place] [address] Jovani Richardson MD [facility] [place] [address] A, Nurse Clinician None 11/17/2024 4:20 PM EDT Office [place] [phone] Lawrence Gar MD [facility] [place] [address] Scheduled Procedures Name Priority Associated Diagnoses Date/Ti me EGD, UPPER GI ENDOSCOPY (WRVU 2.09) Sharma's esophagus with high grade dysplasia 04/06/2024 9:30 AM EST documented as of this encounter Visit Diagnoses Not on filedocumented in this encounter Care Teams Stablehand Relationship Specialty Start Date End Date Slade Tran MD PCP - General Family Medicine 06/19/22 11/05/23 documented as of this encounter
--- OUTSIDE RECORDS SUMMARY | 2024-02-18 09:33 | XMS_ITS | Encounter Summary ---
Author Organization [facility] [place] [address] Care Team Providers Care Senior Radiation Therapist Name Role Phone Slade Tran MD Primary Care Provider [phone] Encounter Details Date Type Department Care Team [...] 9:30 AM EST Hospital Encounter [place] [address] Lawrence Gar MD [facility] [place] [address] 04/06/2024 9:30 AM EST - 04/06/2024 10:00 AM EST [place] [address] Lawrence Gar MD [facility] [place] [address] EGD, UPPER GI ENDOSCOPY (WRVU 2.09) 05/06/2024 9:00 AM EST Office Visit [place] [address] Jovani Richardson MD [facility] [place] [address] A, Nurse Clinician None 11/17/2024 4:20 PM EDT Office [place] [phone] Lawrence Gar MD [facility] [place] [address] Scheduled Procedures Name Priority Associated Diagnoses Date/Ti me EGD, UPPER GI ENDOSCOPY (WRVU 2.09) Sharma's esophagus with high grade dysplasia 04/06/2024 9:30 AM EST documented as of this encounter Visit Diagnoses Not on filedocumented in this encounter Care Teams Senior Radiation Therapist Relationship Specialty Start Date End Date Slade Tran MD PCP - General Family Medicine 06/19/22 11/05/23 documented as of this encounter
--- OUTSIDE RECORDS SUMMARY | 2024-02-18 09:34 | XMS_ITS | Encounter Summary ---
Author Organization [facility] [place] [address] Care Team Providers Care Glass Installer Name Role Phone Dio, Jovani MCCAIN Primary Care Provider [phone] Encounter Details Date Type Department Care Team (Latest Contact Info) Description 06/27/2021 2:00 PM EST Office Visit [place] [address] Mekhi Hernandez [facility] [place] [address] CKD (chronic kidney disease) stage 4, GFR [...] this encounter Progress Notes * Mekhi Hernandez, ANIMAL NUTRITION TEACHER - 06/27/2021 2:00 PM EST Nephrology/Hypertension Clinic Follow-up Note [id number] ID: 66 y.o.year-old male for follow up [...] the work day. 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 Uses NSAIDs very [...] Negative mcL Appearance UA Clear Clear Spec Brooks UA 1.018 1.005 - 1.030 Color UA [...] 0.1 x10(3)/mcL Immature Gran % 0.30 % Raay Gran Abs 0.02 0.00 - 0.04 x10(3)/mcL [...] worsening renal function discussed. No clinicalindication for [employer] at this time. Will check Vit D and recheck BMP in 1 month at his local lab. HTN - BP well controlled on current medications. >the total time spent [id number] AND total time the provider spent counseling [...] 9:30 AM EST Hospital Encounter [place] [address] Lawrence Gar MD [facility] [place] [address] 04/06/2024 9:30 AM EST - 04/06/2024 10:00 AM EST Surgery [place] [phone] Lawrence Gar MD [facility] [place] [address] EGD, UPPER GI ENDOSCOPY (WRVU 2.09) 05/06/2024 9:00 AM EST Office Visit [place] [phone] Jovani Richardson MD [facility] [place] [address] A, Nurse Clinician None 11/17/2024 4:20 PM EDT Office [place] [phone] Lawrence Gar MD [facility] [place] [address] Scheduled Procedures Name Priority Associated Diagnoses Date/Ti me EGD, UPPER GI ENDOSCOPY (WRVU 2.09) Sharma's esophagus with high grade dysplasia 04/06/2024 9:30 AM EST documented as of this encounter Results * (ABNORMAL) PTH (06/27/2021 1:21 PM EST) Parathyroid Hormone 98(H) 15 - 65 pg/mL [facility] Blood 06/27/2021 1:21 PM EST 06/27/2021 1:27 PM EST Narrative Resulting Agency Comment Spec In Lab Mekhi Hernandez ANIMAL NUTRITION TEACHER CHEMISTRY ORDERAB LES Performing Organization Address [facility] Co de Phone Number [facility] [place] [address] * Phosphorus (06/27/2021 1:21 PM EST) Phosphorus 3.0 2.5 - 4.5 mg/dL [facility] Blood 06/27/2021 1:21 PM EST 06/27/2021 1:28 PM EST Narrative Resulting Agency Comment Spec In Lab Mekhinito Hernandez ANIMAL NUTRITION TEACHER CHEMISTRY ORDERAB LES Performing Organization Address [facility] de Phone Number [facility] [place] [address] * Albumin Level (06/27/2021 1:21 PM EST) Albumin 4.5 3.2 - 5.2 g/dL [facility] Blood 06/27/2021 1:21 PM EST 06/27/2021 1:28 PM EST Narrative Resulting Agency Comment Spec In Lab Mekhi Hernandez ANIMAL NUTRITION TEACHER CHEMISTRY ORDERAB LES Performing Organization Address [facility] de Phone Number [facility] [place] [address] * (ABNORMAL) Basic Metabolic Panel (non-fasting) (06/27/2021 1:21 PM EST) Glucose 101 65 - 199 mg/dL [facility] Comment:Diabetes: >=200 mg/d L plus symptoms Blood Urea Nitrogen 43(H) 10 - 20 mg/dL [facility] Creatinine 2.62(H) 0.80 - 1.50 mg/dL [facility] Sodium 139 135 - 145 mmol/L [facility] Potassium 4.4 3.5 - 5.0 mmol/L [facility] Comment: Please note: ??Patients with WBC >100,000 may have falsely elevated Potassium levels. ??For accurate Potassium quantification in these patients send serum separator tube (gold top) for subsequent determinations. ??Contact the Clinical Chemistry Laboratory if there are any questions. Chloride 109(H) 98 - 107 mmol/L [facility] Carbon Dioxide 17(L) 22 - 31 mmol/L [facility] Anion Gap 13 5 - 15 mmol/L [facility] Calcium 9.2 8.5 - 10.5 mg/dL [facility] Est Glomerular Filtration Rate 24(L) >=60 mL/min/1. 73 m?? [facility] Comment: This patient? [...] Agency Comment Spec In Lab Mekhi Hernandez ANIMAL NUTRITION TEACHER CHEMISTRY ORDERAB LES [facility] [place] [address] * (ABNORMAL) Urinalysis without microscopic (06/27/2021 1:19 PM EST) Glucose, Urine Dipstick Negative Negative mg/dL [facility] Protein, Urine Dipstick 100(A) Negative mg/dL [facility] Bilirubin, Urine Dipstick Negative Negative mg/dL [facility] Comment: Clinical correlation required for positive Urine Bilirubin results as false positive may occur with some drugs and drug related products. If a false positive is suspected a serum total bilirubin should be considered if clinically indicated. Urobilinogen, Urine Dipstick Normal Normal mg/dL [facility] pH, Urn (dipstick) 5.5 5.0 - 8.0 [facility] Blood, Urine Dipstick Negative Negative mg/dL [facility] Ketone, Urine Dipstick Trace(A) Negative mg/dL [facility] Nitrite, Urine Dipstick Negative Negative [facility] Leukocytes, Urine Dipstick Negative Negative mcL [facility] Appearance, Urine Dipstick Clear Clear [facility] Specific [place] Urine Automated 1.018 1.005 - 1.030 [facility] Color, Urine Dipstick Yellow Yellow [facility] Urine 06/27/2021 1:19 PM EST 06/27/2021 1:30 PM EST Narrative Resulting Agency Comment Spec In Lab Mekhi Hernandez APRN URINE ORDERABLES Performing Organization Address City/[facility]/ZIP Co de Phone Number [facility] [place] [address] * (ABNORMAL) Protein/Creatinine Ratio, urine (06/27/2021 1:19 PM EST) Creatinine, Urine 147 mg/dL [facility] Protein, Urine 107(H) 0 - 12 mg/dL [facility] Protein / Creatinine Ratio, Urine 0.7 ratio [facility] Urine 06/27/2021 1:19 PM EST 06/27/2021 1:30 PM EST Narrative Resulting Agency Comment Spec In Lab Mekhi Hernandez APRN URINE ORDERABLES Performing Organization Address City/[facility]/ZIP Co de Phone Number [facility] [place] [address] documented in this encounter Visit Diagnoses Diagnosis CKD (chronic kidney disease) stage 4, GFR 15-29 ml/min Chronic kidney disease, Stage IV (severe) Hypertension, unspecified type Sharma's esophagus with high grade dysplasia Sharma's esophagus documented in this encounter Care Teams Glass Installer Relationship Specialty Start Date End Date Jovani Wharton DO [address] [place] [address] PCP - General Family Medicine 10/18/16 06/18/22 documented as of this encounter
--- OUTSIDE RECORDS SUMMARY | 2024-02-18 09:34 | XMS_ITS | Encounter Summary ---
[place] [address] Care Team Providers Care Band Salvager Name Role Phone Jovani Wharton DO Primary Care Provider [phone] Encounter Details Date Type Department Care Team (Late st Contact Info) Description 05/24/2022 Telephone [place] [phone] Patsy Quintero Social History Tobacco Use Types [...] to schedule visit with Dr. Gar from [facility]. Return calls can be handled by: ANY GASTRO FIXED CAPITAL CLERK documented in this encounter Plan of Treatment Upcoming Encounters Date Type Department Care Team (Latest Contact Info) Description 04/06/2024 9:30 AM EST Hospital Encounter Gastroenterology at [place] [phone] Lawrence Gar MD [facility] [place] [address] 04/06/2024 9:30 AM EST - 04/06/2024 10:00 AM EST Surgery Gastroenterology at [place] [phone] Lawrence Gar MD [facility] [place] [address] EGD, UPPER GI ENDOSCOPY (WRVU 2.09) 05/06/2024 9:00 AM EST Office Visit Nephrology Hypertension at [place] [phone] Jovani Richardson MD [facility] [place] [address] A, Nurse Clinician None 11/17/2024 4:20 PM EDT Office Visit Gastroenterology at [place] [phone] Lawrence Gar MD [facility] [place] [address] Scheduled Procedures Name Priority Associated Diagnoses Date/Ti me EGD, UPPER GI ENDOSCOPY (WRVU 2.09) Sharma's esophagus with high grade dysplasia 04/06/2024 9:30 AM EST documented as of this encounter Visit Diagnoses Not on filedocumented in this encounter Care Teams Band Salvager Relationship Specialty Start Date End Date Jovani Wharton DO [address] [place] [address] [address] [place] [address] PCP - General Family Medicine 10/18/16 06/18/22 documented as of this encounter
--- OUTSIDE RECORDS SUMMARY | 2024-02-18 09:34 | XMS_ITS | Encounter Summary ---
Author Organization [facility] [place] [address] Care Team Providers Care Laundry Manager Name Role Phone Jovani Wharton DO Primary Care Provider Encounter Details Date Type Department Care Team (Late st Contact Info) Description 07/26/2021 8:55 AM EST Ancillary Procedure Radiology Library at [facility] [place] [address] Jovani Wharton DO [address] [place] [address] Social History Tobacco Use Types Packs/Day Years [...] EST Hospital Encounter Gastroenterology at [facility] [place] [phone] Lawrence Gar MD [facility] [address] 04/06/2024 9:30 AM EST - 04/06/2024 10:00 AM EST Surgery [place] [address] Lawrence Gar MD [facility] [place] [address] EGD, UPPER GI ENDOSCOPY (WRVU 2.09) 05/06/2024 9:00 AM EST Office Visit [place] [phone] Jovani Richardson MD [facility] [place] [address] A, Nurse Clinician None 11/17/2024 4:20 PM EDT Office [place] [phone] Lawrence Gar MD [facility] [place] [address] Scheduled Procedures Name Priority Associated Diagnoses Date/Ti [...] DX Chest (07/26/2021 8:53 AM EST) Narrative RAD - 07/26/2021 8:53 AM EST This exam is auto-finalizing. It's purpose is for storage only. Jovani [place] [facility] ORD ERABLES [place], [place] documented in this encounter Visit Diagnoses Not on filedocumented in this encounter Care Teams Laundry Manager Relationship Specialty Start Date End Date Jovani Wharton DO [address] [place], [place] [address] [place] [address] PCP - General Family Medicine 10/18/16 06/18/22 documented as of this encounter
--- OUTSIDE RECORDS SUMMARY | 2024-02-18 09:34 | XMS_ITS | Encounter Summary ---
Author Organization [facility] Address [facility] [place] [address] Care Team Providers Care Laborer Ammunition Assembly Name Role Phone Slade Tran MD Primary Care Provider [phone] Reason for Visit * Consultation (Routine) - Closed Specialty Diagnoses / Procedures Referred By Devaughn bobo Referred To Contact Nephrology Diagnoses Chronic kidney disease, stage IV (severe) Slade Tran MD [address] [place] [address] [place] [address] [facility] Nephrology [address] [place] [phone] Referral ID Status Reason Start Date Expiration Date V isits Requested Visits Authorized [id number] Closed Consult, Test & Treat PCP Updated and/or Approved 06/19/2022 06/19/2023 3 3 Encounter Details Date Type Department Care Team (Latest Contact Info) Description 08/17/2022 10:30 AM EDT Office Visit Neph[place] [phone] Jovani Richardson MD [facility] [place] [address] Acute worsening of stage 4 [...] 10:30 AM EDT Nephrology/Hypertension Clinic Follow-up Note [id number] ID: 67 y.o.year-old male for follow up [...] Take 50 mg by mouth daily. ??? iaegng-psjnfxzj-ttcyzuk DR (Creon 6) 6,000-19,000 -30,000 unit Capsule, [...] [address] capsule Daily ??? [DISCONTINUED] [employer] Kit Sodium Bicarb 1/2 teaspoon, [...] labs in 1 month (orders sent to [facility]) - if labs are stable, rtc 6 months. Will f/u sooner if Cr continues to rise CC: Slade Tran MD @PCPADD@ documented in this encounter Miscellaneous Notes * Addendum Note - Russell Clancy LPN - 08/17/2022 10:30 AM EDTAddended by: RUSSELL CLANCY on: 08/17/2022 12:10 PM Modules accepted: Orders * Addendum Note - Jovani iRchardson MD - 08/17/2022 10:30 AM EDTAddended by: JOVANI RICHARDSON on: 08/20/2022 10:33 AM Modules accepted: Orders documented in this encounter Plan of Treatment Upcoming Encounters Date Type Department Care Team (Latest Contact Info) Description 04/06/2024 9:30 AM EST Hospital Encounter [place] [address] Lawrence Gar MD [facility] [place] [address] 04/06/2024 9:30 AM EST - 04/06/2024 10:00 AM EST Surgery [place] [address] Lawrence Gar MD [facility] [place] [address] EGD, UPPER GI ENDOSCOPY (WRVU 2.09) 05/06/2024 9:00 AM EST Office Visit Neph[place] [address] Jovani Richardson MD [facility] [place] [place] [address] A, Nurse Clinician None 11/17/2024 4:20 PM EDT Office Visit [place] [phone] Lawrence Gar MD [facility] [place] [address] Scheduled Procedures Name Priority Associated Diagnoses Date/Ti [...] EDT) Glucose, Urine Dipstick Negative Negative mg/dL [facility] Protein, Urine Dipstick 100(A) Negative mg/dL [facility] Bilirubin, Urine Dipstick Negative Negative mg/dL [facility] Comment: Clinical correlation required for positive Urine Bilirubin results as false positive may occur with some drugs and drug related products. If a false positive is suspected a serum total bilirubin should be considered if clinically indicated. Urobilinogen, Urine Dipstick Normal Normal mg/dL [facility] pH, Urn (dipstick) 6.0 5.0 - 8.0 [facility] Blood, Urine Dipstick Negative Negative mg/dL [facility] Ketone, Urine Dipstick Negative Negative mg/dL [facility] Nitrite, Urine Dipstick Negative Negative [facility] Leukocytes, Urine Dipstick Negative Negative [facility] Appearance, Urine Dipstick Clear Clear [facility] Specific [place] Urine Automated 1.015 1.005 - 1.030 [facility] Color, Urine Dipstick Yellow Yellow [facility] Urine 01/21/2023 2:04 PM EDT 01/21/2023 2:21 PM EDT Narrative Resulting Agency Comment Spec In Lab Jovani Richardson MD URINE ORDERABLES Performing Organization Address City/[facility] Co de Phone Number [facility] [place] [address] * (ABNORMAL) Protein/Creatinine Ratio, urine (01/21/2023 2:04 PM EDT) Creatinine, Urine 55 mg/dL [facility] Protein, Urine 84(H) 0 - 12 mg/dL [facility] Protein / Creatinine Ratio, Urine 1.5 ratio [facility] Urine 01/21/2023 2:04 PM EDT 01/21/2023 2:21 PM EDT Narrative Resulting Agency Comment Spec In Lab Jovani Richardson MD URINE ORDERABLES Performing Organization Address City/[facility] Co de Phone Number [facility] [place] [address] * Phosphorus (01/21/2023 12:55 PM EDT) Phosphorus 3.5 2.5 - 4.5 mg/dL [facility] Blood 01/21/2023 12:5 5 PM EDT 01/21/2023 1:11 PM EDT Narrative Resulting Agency Comment Spec In Lab Jovani Richardson MD CHEMISTRY ORDERABLES Performing Organization Address City/[facility] Co de Phone Number [facility] [place] [address] * Albumin Level (01/21/2023 12:55 PM EDT) Albumin 4.3 3.2 - 5.2 g/dL [facility] Blood 01/21/2023 12:5 5 PM EDT 01/21/2023 1:11 PM EDT Narrative Resulting Agency Comment Spec In Lab Jovani Richardson MD CHEMISTRY ORDERABLES Performing Organization Address City/[facility]/ZIP Co de Phone Number [facility] [place] [address] * (ABNORMAL) PTH (01/21/2023 12:55 PM EDT) Parathyroid Hormone 126(H) 15 - 65 pg/mL [facility] Blood 01/21/2023 12:5 5 PM EDT 01/21/2023 1:11 PM EDT Narrative Resulting Agency Comment Spec In Lab Jovani Richardson MD CHEMISTRY ORDERABLES Performing Organization Address [facility] Co de Phone Number [facility] [place] [address] * (ABNORMAL) Basic Metabolic Panel (non-fasting) (01/21/2023 12:55 PM EDT) Glucose 93 65 - 199 mg/dL [facility] Comment:Diabetes: >=200 mg/d L plus symptoms Blood Urea Nitrogen 57(H) 10 - 20 mg/dL [facility] Creatinine 2.71(H) 0.80 - 1.50 mg/dL [facility] Sodium 140 135 - 145 mmol/L [facility] Potassium 5.6(H) 3.5 - 5.0 mmol/L [facility] Comment: Please note: ??Patients with WBC >100,000 may have falsely elevated Potassium levels. ??For accurate Potassium quantification in these patients send serum separator tube (gold top) for subsequent determinations. ??Contact the Clinical Chemistry Laboratory if there are any questions. Chloride 112(H) 98 - 107 mmol/L [facility] Carbon Dioxide 15(L) 22 - 31 mmol/L [facility] Anion Gap 13 5 - 15 mmol/L [facility] Calcium 8.4(L) 8.5 - 10.5 mg/dL [facility] Est Glomerular Filtration Rate 25(L) >=60 mL/min/1. 73 m?? [facility] Comment: This patient's estimated GFR [...] Richardson MD CHEMISTRY ORDERABLES Performing Organization Address City/[facility]/ZIP Co de Phone Number [facility] [place] [address] * Urinalysis Microscopic Exam (08/17/2022 11:30 AM EDT) RBC, Urine 1 0 - 3 /HPF [facility] WBC, Urine 0 0 - 3 /HPF [facility] Urine Urine / Unknown 08/17/2022 1 1:30 AM EDT 08/17/2022 1:08 PM EDT Narrative Resulting Agency Comment Spec In Lab Jovani Richardson MD URINE ORDERABLES Performing Organization Address City/[facility]/ZIP Co de Phone Number [facility] [place] [address] * (ABNORMAL) Urinalysis with reflex Culture (08/17/2022 11:30 AM EDT) Glucose, Urine Dipstick Negative Negative mg/dL [facility] Protein, Urine Dipstick >=300(A) Negative mg/dL [facility] Bilirubin, Urine Dipstick Negative Negative mg/dL [facility] Comment: Clinical correlation required for positive Urine Bilirubin results as false positive may occur with some drugs and drug related products. If a false positive is suspected a serum total bilirubin should be considered if clinically indicated. Urobilinogen, Urine Dipstick Normal Normal mg/dL [facility] pH, Urn (dipstick) 6.0 5.0 - 8.0 [facility] Blood, Urine Dipstick Negative Negative mg/dL [facility] Ketone, Urine Dipstick Negative Negative mg/dL [facility] Nitrite, Urine Dipstick Negative Negative [facility] Leukocytes, Urine Dipstick Negative Negative mcL [facility] Appearance, Urine Dipstick Clear Clear [facility] Specific [place] Urine Automated 1.014 1.005 - 1.030 [facility] Color, Urine Dipstick Yellow Yellow [facility] Reflex to Culture No [facility] Urine Urine / Unknown 08/17/2022 1 1:30 AM EDT 08/17/2022 1:08 PM EDT Narrative Resulting Agency Comment Spec In Lab Jovani Richardson MD URINE ORDERABLES Performing Organization Address City/State/[facility] Co de Phone Number [facility] [place] [address] documented in this encounter Visit Diagnoses Diagnosis Acute worsening of stage 4 chronic kidney disease- Primary CKD (chronic kidney disease) stage 4, GFR 15-29 ml/min Chronic kidney disease, Stage IV (severe) Primary hypertension Unspecified essential hypertension Hyperparathyroidism due to renal insufficiency Secondary hyperparathyroidism (of renal origin) Sharma's esophagus with high grade dysplasia Sharma's esophagus documented in this encounter Care Teams Laborer Ammunition Assembly Relationship Specialty Start Date End Date Slade Tran MD PCP - General Family Medicine 06/19/22 11/05/23 documented as of this encounter
--- OUTSIDE RECORDS SUMMARY | 2024-02-18 09:34 | XMS_ITS | Encounter Summary ---
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 Social History Tobacco Use Types Packs/Day Years Used Date Smoking Tobacco: Never Smokeless Tobacco: Never Sex and Gender Information Value Date Recorded Sex Assigned at Not on file Gender Identity Not on file Sexual Orientation Not on file documented as of this encounter Progress Notes * Alan Jaffe, MEDICAL STENOGRAPHER - 06/14/2020 10:45 AM EST Mohs consultation [...] 9:30 AM EST Hospital [place] [address] Lawrence Gar MD [facility] [place] [address] 04/06/2024 9:30 AM EST - 04/06/2024 10:00 AM EST [place] [address] Lawrence Gar MD [facility] [place] [address] EGD, UPPER GI ENDOSCOPY (WRVU 2.09) 05/06/2024 9:00 AM EST Office Visit [place] [address] Jovani Richardson MD [facility] [place] [address] A, Nurse Clinician None 11/17/2024 4:20 PM EDT Office [place] [address] Lawrence Gar MD [facility] [place] [address] Scheduled Procedures Name Priority Associated Diagnoses Date/Ti me EGD, UPPER GI ENDOSCOPY (WRVU 2.09) Shamra's esophagus with high grade dysplasia 04/06/2024 9:30 AM EST documented as of this encounter Visit Diagnoses Diagnosis 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
--- OUTSIDE RECORDS SUMMARY | 2024-02-18 09:34 | XMS_ITS | Encounter Summary ---
Author Organization [facility] Address [facility] [place] [address] Care Team Providers Care Psychiatric Specialist Name Role Phone DioJovani franks Primary Care Provider Encounter Details Date Type Department Care Team (Latest Contact Info) Description 06/23/2020 2:15 PM EST Clinical Support Dermatology at [facility] [address] [place] [address] Dominguez Lopez MD [facility] DR TOM [place] [address] Visit for suture removal Social History Tobacco [...] 9:30 AM EST Hospital Encounter Gastroenterology at [place] [phone] Lawrence Gar MD [facility] [place] [address] 04/06/2024 9:30 AM EST - 04/06/2024 10:00 AM EST Surgery Gastroenterology at [place] [phone] Lawrence Gar MD [facility] [place] [address] EGD, UPPER GI ENDOSCOPY (WRVU 2.09) 05/06/2024 9:00 AM EST Office Visit Nephrology Hypertension at [place] [phone] Jovani Richardson MD [facility] [place] [place] [address] A, Nurse Clinician None 11/17/2024 4:20 PM EDT Office Visit Gastroenterology at [place] [phone] Lawrence Gar MD [facility] [place] [address] Scheduled Procedures Name Priority Associated Diagnoses Date/Ti me EGD, UPPER GI ENDOSCOPY (WRVU 2.09) Sharma's esophagus with high grade dysplasia 04/06/2024 9:30 AM EST documented as of this encounter Visit Diagnoses Diagnosis Visit for suture removal Encounter for removal of sutures Sharma's esophagus with high grade dysplasia Sharma's esophagus documented in this encounter Care Teams Psychiatric Specialist Relationship Specialty Start Date End Date Jovani Wharton DO [address] [place] [address] [address] [place] [address] PCP - General Family Medicine 10/18/16 06/18/22 documented as of this encounter
--- OUTSIDE RECORDS SUMMARY | 2024-02-18 09:34 | XMS_ITS | Encounter Summary ---
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. 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 lnboui-berhzjbz-ngcfahg DR (Creon 6) 6,000-19,000 -30,000 unit Capsule, [...] of care regarding pancreatitis. Lawrence Gar MD pepper picker Director, GI Endoscopy Section [place] [address] Cc:Jovani Wharton, DO [address] [place] [address] documented in this encounter Plan of Treatment Upcoming Encounters Date Type Department Care Team (Latest Contact Info) Description 04/06/2024 9:30 AM EST Hospital Encounter Gastroenterology at [place] [phone] Lawrence Gar MD [facility] [place] [address] 04/06/2024 9:30 AM EST - 04/06/2024 10:00 AM EST Surgery [place] [phone] Lawrence Gar MD [facility] [place] [address] EGD, UPPER GI ENDOSCOPY (WRVU 2.09) 05/06/2024 9:00 AM EST Office Visit Nephrology Hypertension at [place] [phone] Jovani Richardson MD [facility] [place] [address] A, Nurse Clinician None 11/17/2024 4:20 PM EDT Office [place] [phone] Lawrence Gar MD [facility] [place] [address] Scheduled Procedures Name Priority Associated Diagnoses Date/Ti mi EGD, UPPER GI ENDOSCOPY (WRVU 2.09) Sharma's esophagus with high grade dysplasia 04/06/2024 9:30 AM EST documented as of this encounter Visit Diagnoses Diagnosis Alcohol-induced chronic pancreatitis Chronic pancreatitis Sharma's esophagus with high grade dysplasia Sharma's esophagus documented in this encounter Care Teams Design Supervisor Relationship Specialty Start Date End Date Jovani Wharton DO [address] [facility] [address] [place] [address] PCP - General Family Medicine 10/18/16 06/18/22 documented as of this encounter
--- OUTSIDE RECORDS SUMMARY | 2024-02-18 09:34 | XMS_ITS | Encounter Summary ---
Author Organization [facility] [place] [address] Care Team Providers Care Gastrointestinal Technician Name Role Phone Jovani Wharton DO Primary Care Provider [phone] Encounter Details Date Type Department Care Team (Late st Contact Info) Description 07/25/2021 Ancillary Procedure Radiology Library at [facility] [place] [place] [address] Jovani Wharton DO [address] [place], [place] [address] Social History Tobacco Use Types Packs/Day Years [...] 9:30 AM EST Hospital Encounter Gastroenterology at [facility] [place] [place] [phone] Lawrence Gar MD [facility] [place] [address] 04/06/2024 9:30 AM EST - 04/06/2024 10:00 AM EST Surgery [place] [address] Lawrence Gar MD [facility] [place] [address] EGD, UPPER GI ENDOSCOPY (WRVU 2.09) 05/06/2024 9:00 AM EST Office Visit Nephrology [place] [phone] Jovani Richardson MD [facility] [place] [place] [address] A, Nurse Clinician None 11/17/2024 4:20 PM EDT Office Visit [place] [phone] Lawrence Gar MD [facility] [place] [address] Scheduled Procedures Name Priority Associated Diagnoses Date/Ti [...] DX Chest (07/25/2021 12:00 AM EST) Narrative RAD - 07/26/2021 8:53 AM EST This exam is auto-finalizing. It's purpose is for storage only. Jovani [place] FILM LIBRARY ORD ERABLES [place], [place] documented in this encounter Visit Diagnoses Not on filedocumented in this encounter Care Teams Gastrointestinal Technician Relationship Specialty Start Date End Date Jovani Wharton DO [address] [place] [address] PCP - General Family Medicine 10/18/16 06/18/22 documented as of this encounter
--- OUTSIDE RECORDS SUMMARY | 2024-02-18 09:34 | XMS_ITS | Encounter Summary ---
[place] [address] Care Team Providers Care Multicut Line Operator Name Role Phone Jovani Wharton DO Primary Care Provider Encounter Details Date Type Department Care Team (Late st Contact Info) Description 09/22/2020 Telephone [place] [address] Lorenza Solis Social History Tobacco Use Types Packs/Day Years Used Date Smoking Tobacco: Never Smokeless Tobacco: Never Sex and Gender Information Value Date Recorded Sex Assigned at Not on file Gender Identity Not on file Sexual Orientation Not on file documented as of this encounter Miscellaneous Notes * Telephone Encounter - Lorenza Solis - 09/22/2020 11:46 AM EDT Mathew Mendez [id number] Diagnosis/Indication: pancreatitis/crc 1. Have you ever had a/an Upper Endoscopy & Colonoscopy before? Yes: Date egd [place] 2 yrs ago, colo more than 10 [...] to patient: You must have a responsible democrat who [...] 9:30 AM EST Hospital Encounter [place] [phone] Lawrence Gar MD [facility] [place] [address] 04/06/2024 9:30 AM EST - 04/06/2024 10:00 AM EST Surgery [place] [address] Lawrence Gar MD [facility] [place] [address] EGD, UPPER GI ENDOSCOPY (WRVU 2.09) 05/06/2024 9:00 AM EST Office Visit Nephrology [place] [phone] Jovani Richardson MD [facility] [place] [address] A, Nurse Clinician None 11/17/2024 4:20 PM EDT Office Visit [place] [address] Lawrence Gar MD [facility] [place] [address] Scheduled Procedures Name Priority Associated Diagnoses Date/Ti me EGD, UPPER GI ENDOSCOPY (WRVU 2.09) Sharma's esophagus with high grade dysplasia 04/06/2024 9:30 AM EST documented as of this encounter Visit Diagnoses Not on filedocumented in this encounter Care Teams Multicut Line Operator Relationship Specialty Start Date End Date Jovani Wharton DO [address] [place] [address] PCP - General Family Medicine 10/18/16 06/18/22 documented as of this encounter
--- OUTSIDE RECORDS SUMMARY | 2024-02-18 09:34 | XMS_ITS | Encounter Summary ---
Author Organization [facility] Address [facility] [place] [address] Care Team Providers Care Financial Data Analyst Name Role Phone Dio, Jovani MCCAIN Primary Care Provider [phone] Encounter Details Date Type Department Care Team (Late st Contact Info) Description 10/20/2020 1:00 PM EDT - 10/20/2020 2:30 PM EDT Surgery [place] [address] Lawrence Gar MD [facility] [place] [address] EGD WITH BIOPSY (WRVU 2.39) Social History [...] the day after the procedure, use an wjfw-xac-qsboueh spray to numb your throat. Sucking on [...] occurs, please contact your Doctor. Please call [phone] before 8pm Mon-Fri with problems, questions or concerns. If you call after 8pm or on weekends, call the Hospital at [phone] and ask to speak to the Water Supply Engineer emergency telecommunications dispatcher and the coal briquette machine operator will contact that person for you. When should you call for help? Call [phone] anytime you think you may need emergency [...] any problems. Where can you learn more? [facility] View your After Visit Summary and more online at [email or web address] If you would like to provide feedback [...] cost to you. Content Version: 12.2 ?? 1612-9747 [employer]. Care instructions adapted under license by [facility]. If you have questions about a medical condition or this instruction, always ask your healthcare professional. [employer] disclaims any warranty or liability for your [...] the day after the procedure, use an lery-skf-pvqyamd spray to numb your throat. Sucking on [...] occurs, please contact your Doctor. Please call [phone] before 8pm Mon-Fri with problems, questions or concerns. If you call after 8pm or on weekends, call the Hospital at [phone] and ask to speak to the Water Supply Engineer emergency telecommunications dispatcher and the coal briquette machine operator will contact that person for you. When should you call for help? Call [phone] anytime you think you may need emergency [...] any problems. Where can you learn more? [facility] View your After Visit Summary and more online at [email or web address] If you would like to provide feedback [...] cost to you. Content Version: 12.2 ?? 3005-1264 [employer]. Care instructions adapted under license by [facility]. If you have questions about a medical condition or this instruction, always ask your healthcare professional. [employer] disclaims any warranty or liability for your [...] mg tablet every day at bedtime 02/17/2020 023 amoxicillin (Amoxil) 500 mg Capsule TAKE FOUR CAPSULES BY MOUTH 1 HOUR PRIOR TO VISIT 08/30/2020 08/30/2023 fluorouraciL (EFUDEX) 5 % Cream Apply to the ears twice daily x 3 weeks 40 g 08/11/2020 08/17/2022 jcosxw-yanrcmpi-yemxps e DR (Creon 6) 6,000-19,000 -30,000 unit Capsule, [...] to Encounter Medication Sig Dispense Refill ??? cshfya-oaacnran-wltvscw DR (Creon 6) 6,000-19,000 -30,000 unit Capsule, [...] Gar MD - 10/20/2020 1:12 PM EDT [facility] Operative Note Patient Name: Mathew Mendez : [id number] MR#: [id number] Case Date: 10/20/2020 Surgeon: Surgeon(s) and Role: [...] AM [facility] Hospital Encounter [place] [address] Lawrence Gar MD [facility] [place] [address] 04/06/2024 9:30 AM EST - 04/06/2024 10:00 AM EST Surgery [place] [address] Lawrence Gar MD [facility] [place] [address] EGD, UPPER GI ENDOSCOPY (WRVU 2.09) 05/06/2024 9:00 AM EST Office Visit Nephrology [place] [address] Jovani Richardson MD [facility] [place] [address] A, Nurse Clinician None 11/17/2024 4:20 PM EDT Office Visit [place] [address] Lawrence Gar MD [facility] [place] [address] Scheduled Procedures Name Priority Associated Diagnoses Date/Ti [...] 2:16 PM EDT Colonoscopy, Remv Lesn, Snare ([id number]) 10/20/2020 1:03 PM EDT Alcohol-induced chronic pancreatitis Screen for colon cancer Gastroesophageal reflux disease, unspecified whether esophagitis present UPPER EUS- ENDOSCOPIC ULTRASOUND (WRVU 3.47) 10/20/2020 1:03 PM EDT Alcohol-induced chronic pancreatitis Screen for colon cancer Gastroesophageal reflux disease, unspecified whether esophagitis present Upper Gi Endoscopy, Biopsy ([id number]) 10/20/2020 1:03 PM EDT Alcohol-induced chronic pancreatitis Screen for colon cancer Gastroesophageal reflux disease, unspecified whether esophagitis present UPPER EUS-ENDOSCOPIC ULTRASOUND Routine 10/20/2020 12:46 PM EDT COLONOSCOPY Routine 10/20/2020 12:46 PM EDT documented in this encounter Results * Surgical Pathology Report (10/20/2020 2:16 PM EDT) Final Diagnosis [id number] ? Location: 4T; EA12; A The signing [...] Shyla Verified: ??11/02/2020 15:00 ??Pathologist Performed at: ??-[facility] Dept. of Pathology, [place], [place] DISCUSSION A - ??The findings are [...] and bisected ??MLL 11/02/2020 3:[address] [facility] GI Biopsy 10/20/2020 2:16 PM EDT 10/20/2020 2:16 PM EDT GI Biopsy 10/20/2020 2:16 PM EDT 10/20/2020 2:16 PM EDT GI Biopsy 10/20/2020 2:16 PM EDT 10/20/2020 2:16 PM EDT GI Biopsy 10/20/2020 2:16 PM EDT 10/20/2020 2:16 PM EDT GI Biopsy 10/20/2020 2:16 PM EDT 10/20/2020 2:16 PM EDT Lawrence Gar MD PATHOLOGY/CYTOLOGY O SONIYA Performing Organization Address City/[facility]/ZIP Co de Phone Number [facility] [place] [address] * Specimen to Pathology (10/20/2020 2:16 PM EDT) AP Specimen 10/20/2020 2:16 PM EDT 10/20/2020 2:[address] [facility] - 10/20/2020 2:16 PM EDT Specimen requisition ordered. ??Separate Pathology report to follow Lawrence Gar MD PATHOLOGY/CYTOLOGY O SONIYA Performing Organization Address [facility]/ZIP Co de Phone Number [facility] [place] [address] * Specimen to Pathology (10/20/2020 2:16 PM EDT) AP Specimen 10/20/2020 2:16 PM EDT 10/20/2020 2:[address] [facility] - 10/20/2020 2:16 PM EDT Specimen requisition ordered. ??Separate Pathology report to follow Lawrence Gar MD PATHOLOGY/CYTOLOGY O RDALBERTINA Performing Organization Address City/[facility]/ZIP Co de Phone Number [facility] [place] [address] * Specimen to Pathology (10/20/2020 2:16 PM EDT) AP Specimen 10/20/2020 2:16 PM EDT 10/20/2020 2:[address] [facility] - 10/20/2020 2:16 PM EDT Specimen requisition ordered. ??Separate Pathology report to follow Lawrence Gar MD PATHOLOGY/CYTOLOGY O SONIYA Performing Organization Address [facility] [place] [address] * Specimen to Pathology (10/20/2020 2:16 PM EDT) AP Specimen 10/20/2020 2:16 PM EDT 10/20/2020 2:[address] [facility] - 10/20/2020 2:16 PM EDT Specimen requisition ordered. ??Separate Pathology report to follow Lawrence Gar MD PATHOLOGY/CYTOLOGY O SONIYA Performing Organization Address [facility] [place] [address] * Specimen to Pathology (10/20/2020 2:16 PM EDT) AP Specimen 10/20/2020 2:16 PM EDT 10/20/2020 2:[address] [facility] - 10/20/2020 2:16 PM EDT Specimen requisition ordered. ??Separate Pathology report to follow Lawrence Gar MD PATHOLOGY/CYTOLOGY O SONIYA Performing Organization Address [facility] [place] [address] * UPPER EUS-ENDOSCOPIC ULTRASOUND (10/20/2020 12:46 PM EDT) UPPER ENDOSCOPIC ULTRASOUND [facility] Endoscopy Procedure Date: 10/20/2020 12:46 PM ? Patient Name: Mathew Mendez ? Date of : 1955 ? Age: 65 ? Order #: [id number] ? Instrument Name: [id number] ? Procedure: ? Upper EUS Indications: ? Dysphagia, Follow-up of ? gastro-esophageal reflux disease Providers: ? Lawrence Gar MD, Sarina Pinto, ? Ilya Scales Memar Referring MD: ?Jovani Wharton, DO Medicines: ? Monitored Anesthesia Care Complications: ? No immediate complications. Procedure: ? Pre-Anesthesia Assessment: ? - [place] Protocol: ? - Pre-procedure Verification: Prior ? [...] by the physician, the nurse, ? the well logger and the electronic organ technician in ? the pre-procedure area in [...] Procedure Code(s): ?? --- Professional --- ? 09552, Esophagogastroduodenos copy, ? flexible, transoral; with endoscopic ? ultrasound examination, including the ? esophagus, stomach, and either the ? duodenum or a surgically altered ? stomach where the jejunum is examined ? distal to the anastomosis ? 06982, Esophagogastroduodenos copy, ? flexible, transoral; with biopsy, [...] ? disease without esophagitis CPT copyright 2019 [employer]. All rights reserved. The codes documented in this report are preliminary and upon telegraph mechanic review may be revised to meet current [...] ? Patient Name: Mathew Mendez ? N: [id number] ? Date of : 1955 ? Age: 65 ? Order #: [id number] ? Instrument Name: [id number] ? Procedure: ? Colonoscopy Indications: ? Screening for colorectal malignant ? neoplasm Providers: ? Lawrence Gar MD, Sarina Pinto, ? Ilya Scales MD: ?Jovani Wharton, DO Medicines: ? Monitored Anesthesia Care Complications: ? No immediate complications. Procedure: ? Pre-Anesthesia Assessment: ? - [place] Protocol: ? - Pre-procedure Verification: Prior ? [...] by the physician, the nurse, ? the well logger and the electronic organ technician in ? the procedure room. ? [...] Procedure Code(s): ?? --- Professional --- ? 03026, Colonoscopy, flexible; with ? removal of tumor(s), [...] and ? anastomosis status CPT copyright 2019 [employer]. All rights reserved. The codes documented in this report are preliminary and upon telegraph mechanic review may be revised to meet current [...] unspecified whether esophagitis present Sharma's esophagus with high grade dysplasia Sharma's [...] CRNA) documented in this encounter Care Teams Financial Data Analyst Relationship Specialty Start Date End Date Jovani Wharton DO [address] [place] [address] PCP - General Family Medicine 10/18/16 06/18/22 documented as of this encounter
--- OUTSIDE RECORDS SUMMARY | 2024-02-18 09:34 | XMS_ITS | Encounter Summary ---
Author Organization [facility] [place] [address] Care Team Providers Care Regional Business Development Manager Name Role Phone DioJovani franks Primary Care Provider Encounter Details Date Type Department Care Team (Late st Contact Info) Description 08/22/2020 Telephone [place] [address] Cynthia Kim Social History Tobacco Use Types [...] (Latest Contact Info) Description 04/06/2024 9:30 AM [facility] Hospital [place] [address] Lawrence Gar MD [facility] [place] [address] 04/06/2024 9:30 AM EST - 04/06/2024 10:00 AM EST [place] [address] Lawrence Gar MD [facility] [place] [address] EGD, UPPER GI ENDOSCOPY (WRVU 2.09) 05/06/2024 9:00 AM EST Office Visit [place] [address] Jovani Richardson MD [facility] [place] [address] A, Nurse Clinician None 11/17/2024 4:20 PM EDT Office [place] [address] Lawrence Gar MD [facility] [place] [address] Scheduled Procedures Name Priority Associated Diagnoses Date/Ti me EGD, UPPER GI ENDOSCOPY (WRVU 2.09) Sharma's esophagus with high grade dysplasia 04/06/2024 9:30 AM EST documented as of this encounter Visit Diagnoses Not on filedocumented in this encounter Care Teams Regional Business Development Manager Relationship Specialty Start Date End Date Jovani Wharton DO [address] [place] [address] [address] [place] [address] PCP - General Family Medicine 10/18/16 06/18/22 documented as of this encounter
--- OUTSIDE RECORDS SUMMARY | 2024-02-18 09:34 | XMS_ITS | Encounter Summary ---
Author Organization [facility] [place] [address] Care Team Providers Care Instrument Repair Specialist Name Role Phone DioJovani franks Primary Care Provider Encounter Details Date Type Department Care Team (Late st Contact Info) Description 10/20/2020 1:03 PM EDT Anesthesia [place] [address] Guilherme Anderson MD [facility] [place] [address] Anesthesia Record Procedure Summary Procedure Name Responsible [...] 1245; median cubital vein (antecubital fossa), right; jtvk-hwa-rpltxe catheter system; 22 gauge; soy garcia rn; [...] Notes * Anesthesia Postprocedure Evaluation - Guilherme Andreson MD - 10/20/2020 4:31 PM EDT Department of Anesthesiology Post-procedure Note Patient: Mathew Mendez Procedure Summary Date: 10/20/20 Room / Location: [facility] ENDO 2 / [facility] ENDOSCOPY Anesthesia Start: 1303 Anesthesia Stop: [...] All Anesthesia Providers: Anesthesiologist: Guilherme Anderson MD MEDICAL REGISTRAR: Obey Amezquita CRNA Vitals Value Taken Time BP 145/90 10/20/20 1510 Temp Pulse 72 10/20/20 1440 Resp 16 10/20/20 1440 SpO2 100 % 10/20/20 1517 Pain Level 0 10/20/20 1440 Vitals shown include unvalidated device data. Patient Location: PACU/KYP Level of Consciousness: Conscious but Sleepy Pain [...] pancreatitis Added automatically from request for surgery [id number] ??? Screen for colon cancer Added automatically from request for surgery [id number] ??? Gastroesophageal reflux disease Added automatically from request for surgery [id number] No past medical history on file. No [...] risks discussed with patient. Plan discussed with MEDICAL REGISTRAR. Anesthesia Screening documented in this encounter Plan of Treatment Upcoming Encounters Date Type Department Care Team (Latest Contact Info) Description 04/06/2024 9:30 AM EST Hospital Encounter Gastroenterology at [place] [phone] Lawrence Gar MD [facility] [place] [address] 04/06/2024 9:30 AM EST - 04/06/2024 10:00 AM EST Surgery Gastroenterology at [place] [phone] Lawrence Gar MD [facility] [place] [address] EGD, UPPER GI ENDOSCOPY (WRVU 2.09) 05/06/2024 9:00 AM EST Office Visit Nephrology Hypertension at [place] [phone] Jovani Richardson MD [facility] [place] [address] A, Nurse Clinician None 11/17/2024 4:20 PM EDT Office Visit Gastroenterology at [place] [phone] Lawrence Gar MD [facility] [place] [address] Scheduled Procedures Name Priority Associated Diagnoses Date/Ti [...] hr documented in this encounter Care Teams Instrument Repair Specialist Relationship Specialty Start Date End Date Jovani Wharton DO [address] [place] [address] PCP - General Family Medicine 10/18/16 06/18/22 documented as of this encounter
--- OUTSIDE RECORDS SUMMARY | 2024-02-18 09:34 | XMS_ITS | Encounter Summary ---
[place] [address] Care Team Providers Care Architectural Engineer Name Role Phone DioJovani franks Primary Care Provider [phone] Encounter Details Date Type Department Care Team (Late st Contact Info) Description 04/14/2021 Telephone [place] [address] Christiana Haq Social History Tobacco [...] but we can schedule him with our [employer] AX DEVELOPER. documented in this encounter Plan of Treatment Upcoming Encounters Date Type Department Care Team (Latest Contact Info) Description 04/06/2024 9:30 AM EST Hospital Encounter [place] [address] Lawrence Gar MD [facility] [place] [address] 04/06/2024 9:30 AM EST - 04/06/2024 10:00 AM EST [place] [address] Lawrence Gar MD [facility] [place] [address] EGD, UPPER GI ENDOSCOPY (WRVU 2.09) 05/06/2024 9:00 AM EST Office Visit [place] [address] Jovani Richardson MD [facility] [place] [address] A, Nurse Clinician None 11/17/2024 4:20 PM EDT Office [place] [address] Lawrence Gar MD [facility] [place] [address] Scheduled Procedures Name Priority Associated Diagnoses Date/Ti me EGD, UPPER GI ENDOSCOPY (WRVU 2.09) Sharma's esophagus with high grade dysplasia 04/06/2024 9:30 AM EST documented as of this encounter Visit Diagnoses Not on filedocumented in this encounter Care Teams Architectural Engineer Relationship Specialty Start Date End Date Jovani Wharton DO [address] [place] [address] PCP - General Family Medicine 10/18/16 06/18/22 documented as of this encounter
--- OUTSIDE RECORDS SUMMARY | 2024-02-18 09:34 | XMS_ITS | Encounter Summary ---
Author Organization [facility] [place] [address] Care Team Providers Care Cyber Ops Planner Name Role Phone DioJovani franks Primary Care Provider Encounter Details Date Type Department Care Team (Late st Contact Info) Description 04/07/2021 [facility] Only [address] [phone] Jorge Chauhan MD [address] [place] [phone] Social History Tobacco Use Types Packs/Day Years [...] (Latest Contact Info) Description 04/06/2024 9:30 AM [facility] Hospital [place] [address] Lawrence Gar MD [facility] GASTROENTER[place] [address] 04/06/2024 9:30 AM EST - 04/06/2024 10:00 AM EST [place] [address] Lawrence Gar MD [facility] [place] [address] EGD, UPPER GI ENDOSCOPY (WRVU 2.09) 05/06/2024 9:00 AM EST Office Visit [place] [phone] Jovani Richardson MD [facility] [place] [address] A, Nurse Clinician None 11/17/2024 4:20 PM EDT Office [place] [phone] Lawrence aGr MD [facility] [place] [place] [address] Scheduled Procedures Name Priority Associated Diagnoses Date/Ti [...] PT CLASS O RAD ADMITDTTM RAD PT RAD INFO [id number]^J ENSEN^KRISTO PHER RAD EXAM DESC UEXTDUP^US LEG [...] who have questions please contact the health healthcare economics consultant that requested your imaging first. ? Narrative [...] patients who have questions please contactthe health healthcare economics consultant that requested your imaging first. Jorge Chauhan MD [facility] documented in this encounter Visit Diagnoses Not on filedocumented in this encounter Care Teams Cyber Ops Planner Relationship Specialty Start Date End Date Jovani Wharton DO [address] [place] [address] [address] [facility] [address] [place] [address] PCP - General Family Medicine 10/18/16 06/18/22 documented as of this encounter
--- OUTSIDE RECORDS SUMMARY | 2024-02-18 09:34 | XMS_ITS | Encounter Summary ---
[place] [address] Care Team Providers Care Nuclear Operations Specialist Name Role Phone Slade Tran MD Primary Care Provider [phone] Encounter Details Date Type Department Care Team (Late st Contact Info) Description 07/13/2022 Telephone [place] [phone] Patsy Quintero Social History Tobacco Use Types [...] appointment to Dr. Cong vargas available. Sent [facility] message to patient * Telephone Encounter - Patsy Quintero - 07/13/2022 1:34 PM EST Inbound/Outbound: OUTBOUND Spoke to Patient/Left Message: [facility] Notes: LVM for patient to call to reschedule his appointment cancelled by [facility] and per message sentfrom nursing that patient cannot get through to secretaries. Return calls can be handled by: Any Gastro Inspector And Clerk documented in this encounter Plan of Treatment Upcoming Encounters Date Type Department Care Team (Latest Contact Info) Description 04/06/2024 9:30 AM EST Hospital Encounter Gastroenterology at [place] [phone] Lawrence Gar MD [facility] [place] [address] 04/06/2024 9:30 AM EST - 04/06/2024 10:00 AM EST Surgery Gastroenterology at [place] [phone] Lawrence Gar MD [facility] [place] [address] EGD, UPPER GI ENDOSCOPY (WRVU 2.09) 05/06/2024 9:00 AM EST Office Visit Nephrology Hypertension at [place] [phone] Jovani Richardson MD [facility] [address] A, Nurse Clinician None 11/17/2024 4:20 PM EDT Office [place] [phone] Lawrence Gar MD [facility] [place] [address] Scheduled Procedures Name Priority Associated Diagnoses Date/Ti ma EGD, UPPER GI ENDOSCOPY (WRVU 2.09) Sharma's esophagus with high grade dysplasia 04/06/2024 9:30 AM EST documented as of this encounter Visit Diagnoses Not on filedocumented in this encounter Care Teams Nuclear Operations Specialist Relationship Specialty Start Date End Date Slade Tran MD PCP - General Family Medicine 06/19/22 11/05/23 documented as of this encounter
--- OUTSIDE RECORDS SUMMARY | 2024-02-18 09:34 | XMS_ITS | Encounter Summary ---
Author Organization [facility] [place] [address] Care Team Providers Care Packaging Line Attendant Name Role Phone Jovani Wharton DO Primary Care Provider [phone] Encounter Details Date Type Department Care Team (Late st Contact Info) Description 07/23/2021 9:15 PM EST Ancillary Procedure Radiology Library at [facility] [place] [address] Jovani Wharton DO [address] [place] [address] Social History Tobacco Use Types Packs/Day Years [...] 9:30 AM EST Hospital Encounter Gastroenterology at [facility] [place] [address] Lawrence Gar MD [facility] [place] [address] 04/06/2024 9:30 AM EST - 04/06/2024 10:00 AM EST Surgery [place] [address] Lawrence Gar MD [facility] [place] [address] EGD, UPPER GI ENDOSCOPY (WRVU 2.09) 05/06/2024 9:00 AM EST Office Visit Neph[place] [phone] Jovani Richardson MD [facility] [place] [address] A, Nurse Clinician None 11/17/2024 4:20 PM EDT Office [place] [phone] Lawrence Gar MD [facility] [place] [address] Scheduled Procedures Name Priority Associated Diagnoses Date/Ti [...] Abdomen Pelvis (07/23/2021 9:14 PM EST) Narrative RAD - 07/23/2021 9:14 PM EST This exam is auto-finalizing. It's purpose is for storage only. Jovani [facility] [employer] [facility] ORD ERABLES [place], [place] documented in this encounter Visit Diagnoses Not on filedocumented in this encounter Care Teams Packaging Line Attendant Relationship Specialty Start Date End Date Jovani Wharton DO [address] [place] [address] PCP - General Family Medicine 10/18/16 06/18/22 documented as of this encounter
--- OUTSIDE RECORDS SUMMARY | 2024-02-18 09:34 | XMS_ITS | Encounter Summary ---
[place] [address] Care Team Providers Care Dealer Sales Manager Name Role Phone Slade Tran MD Primary Care Provider Reason for Referral * Consultation (Routine) - Closed Specialty Diagnoses / Procedures Referred By Devaughn bobo Referred To Contact Nephrology Diagnoses Chronic kidney disease, stage IV (severe) Slade Tran MD [address] [place] [address] [place] [address] [facility] Nephrology [address] [place] [phone] Referral ID Status Reason Start Date Expiration Date V isits Requested Visits Authorized [id number] Closed Consult, Test & Treat PCP Updated and/or Approved 06/19/2022 06/19/2023 3 3 Encounter Details Date Type Department Care Team (Late st Contact Info) Description 06/19/2022 Transcribe Orders eDH Incoming Referrals [phone] Slade Tran MD [address] [place] [address] [place] [address] Chronic kidney disease, stage IV (severe) Social [...] 9:30 AM EST Hospital En[place] [address] Lawrence Gar MD [facility] [place] [address] 04/06/2024 9:30 AM EST - 04/06/2024 10:00 AM EST [place] [phone] Lawrence Gar MD [facility] [place] [address] EGD, UPPER GI ENDOSCOPY (WRVU 2.09) 05/06/2024 9:00 AM EST Office Visit Nephrology Hypertension at [place] [phone] Jovani Richardson MD [facility] [place] [address] A, Nurse Clinician None 11/17/2024 4:20 PM EDT Office [place] [address] Lawrence Gar MD [facility] [place] [address] Scheduled Procedures Name Priority Associated Diagnoses Date/Ti [...] esophagus documented in this encounter Care Teams Dealer Sales Manager Relationship Specialty Start Date End Date Slade Tran MD PCP - General Family Medicine 06/19/22 11/05/23 documented as of this encounter
--- OUTSIDE RECORDS SUMMARY | 2024-02-18 09:34 | XMS_ITS | Encounter Summary ---
[place] [address] Care Team Providers Care Batchmaker Name Role Phone DioJovani franks Primary Care Provider Reason for Visit * Reason Onset Date Comments Reminder Appointment 08/09/2020 Encounter Details Date Type Department Care Team (Late st Contact Info) Description 08/09/2020 Tele[place] [address] Whitney Reyes CCMA Reminder Appointment [...] Contact Info) Description 04/06/2024 9:30 AM [facility] Hospital [place] [phone] Lawrence Gar MD [facility] [place] [place] [address] 04/06/2024 9:30 AM EST - 04/06/2024 10:00 AM EST [place] [address] Lawrence Gar MD [facility] [place] [place] [address] EGD, UPPER GI ENDOSCOPY (WRVU 2.09) 05/06/2024 9:00 AM EST Office Visit [place] [address] Jovani Richardson MD [facility] [place] [address] A, Nurse Clinician None 11/17/2024 4:20 PM EDT Office [place] [address] Lawrence Gar MD [facility] [place] [address] Scheduled Procedures Name Priority Associated Diagnoses Date/Ti me EGD, UPPER GI ENDOSCOPY (WRVU 2.09) Sharma's esophagus with high grade dysplasia 04/06/2024 9:30 AM EST documented as of this encounter Visit Diagnoses Not on filedocumented in this encounter Care Teams Batchmaker Relationship Specialty Start Date End Date Jovani Wharton DO [address] [place] [address] PCP - General Family Medicine 10/18/16 06/18/22 documented as of this encounter
--- OUTSIDE RECORDS SUMMARY | 2024-02-18 09:34 | XMS_ITS | Encounter Summary ---
Author Organization [facility] Address [facility] [place] [address] Care Team Providers Care Veterinary Bacteriologist Name Role Phone Jovani Wharton DO Primary Care Provider Reason for Visit * Consultation (Routine) - Closed Specialty Diagnoses / Procedures Referred By Devaughn bobo Referred To Contact Gastroenterology Diagnoses Acute pancreatitis without necrosis or infection, unspecified Pancreatitis Procedures Consult Jovani Wharton DO [address] [place] [address] [facility] Gastro 4[place] [address] Referral ID Status Reason Start Date Expiration Date Visits Re quested Visits Authorized [id number] Closed 07/22/2020 07/22/2021 1 1 Encounter Details Date Type Department Care Team (Latest Contact Info) Description 08/09/2020 3:20 PM EDT TH Visit (TeleHealth) [place] [address] Lawrence Gar MD [facility] [place] [address] Gastroesophageal reflux disease, unspecified whether [...] partial colectomy many years ago here at [facility] for diverticulitis. He has not had a colonoscopy for several years. As stated above he currently feels better with improvement in his abdominal pain and bloating over the last few weeks but he is concerned about the possibility that his symptoms will recur. Current Outpatient Medications on File Prior to Visit Medication Sig Dispense Refill ??? 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 He is a non-smoker. Alcohol use in [...] of care regarding pancreatitis. Lawrence Gar MD certified ophthalmic surgical assistant Director, GI Endoscopy Section of Gastroenterology [place] [address] Cc:Jovani Wharton DO documented in this encounter Plan of Treatment Upcoming Encounters Date Type Department Care Team (Latest Contact Info) Description 04/06/2024 9:30 AM EST Hospital En[place] [address] Lawrence Gar MD [facility] [place] [address] 04/06/2024 9:30 AM EST - 04/06/2024 10:00 AM EST [place] [address] Lawrence Gar MD [facility] [place] [address] EGD, UPPER GI ENDOSCOPY (WRVU 2.09) 05/06/2024 9:00 AM EST Office Visit [place] [address] Jovani Richardson MD [facility] [place] [place] [address] A, Nurse Clinician None 11/17/2024 4:20 PM EDT Office [place] [phone] Lawrecne Gar MD [facility] [place] [address] Scheduled Orders Name Type Priority Associated Diagnoses [...] for malignant neoplasms, colon Sharma's esophagus with high grade dysplasia Sharma's esophagus documented in this encounter Care Teams Veterinary Bacteriologist Relationship Specialty Start Date End Date Jovani Wharton DO [address] [place] [address] PCP - General Family Medicine 10/18/16 06/18/22 documented as of this encounter
--- OUTSIDE RECORDS SUMMARY | 2024-02-18 09:34 | XMS_ITS | Encounter Summary ---
[place] [address] Care Team Providers Care High School Foreign Language Teacher Name Role Phone Slade Tran MD Primary Care Provider [phone] Encounter Details Date Type Department Care Team (Late st Contact Info) Description 07/09/2022 Telephone [place] [address] Clarissa Zamudio, RN Social History [...] 9:30 AM EST Hospital Encounter [place] [address] Lawrence Gar MD [facility] [place] [address] 04/06/2024 9:30 AM EST - 04/06/2024 10:00 AM EST Surgery Gastroenterology at [place] [phone] Lawrence Gar MD [facility] [place] [address] EGD, UPPER GI ENDOSCOPY (WRVU 2.09) 05/06/2024 9:00 AM EST Office Visit Nephrology Hypertension at [place] [phone] Jovani Richardson MD [facility] [place] [address] A, Nurse Clinician None 11/17/2024 4:20 PM EDT Office Visit Gastroenterology at [place] [phone] Lawrence Gar MD [facility] [place] [address] Scheduled Procedures Name Priority Associated Diagnoses Date/Ti me EGD, UPPER GI ENDOSCOPY (WRVU 2.09) Sharma's esophagus with high grade dysplasia 04/06/2024 9:30 AM EST documented as of this encounter Visit Diagnoses Not on filedocumented in this encounter Care Teams High School Foreign Language Teacher Relationship Specialty Start Date End Date Slade Tran MD PCP - General Family Medicine 06/19/22 11/05/23 documented as of this encounter
--- OUTSIDE RECORDS SUMMARY | 2024-02-18 09:34 | XMS_ITS | Encounter Summary ---
Author Organization [facility] Address [facility] [place] [address] Care Team Providers Care Java Spring Developer Name Role Phone DioJovani franks Primary Care Provider [phone] Encounter Details Date Type Department Care Team (Latest Contact Info) Description 10/20/2020 11:58 AM EDT - 10/20/2020 4:07 PM EDT Hospital Encounter [place] [address] Lawrence Gar MD [facility] [place] [address] Alcohol-induced chronic pancreatitis; Screen for colon cancer [...] encounter Discharge Instructions * Discharge Instructions* Cathi Holm RN - 10/20/2020 2:43 PM EDT Upper [...] the day after the procedure, use an ovha-imd-vyvcgpp spray to numb your throat. Sucking on [...] occurs, please contact your Doctor. Please call [phone] before 8pm Mon-Fri with problems, questions or concerns. If you call after 8pm or on weekends, call the Hospital at [phone] and ask to speak to the Billet Heater Operator education general manager and the building equipment operator will contact that person for you. When should you call for help? Call [phone] anytime you think you may need emergency [...] more? [facility] View your After Visit Summary and more online at [email or web address] If you would like to provide [...] cost to you. Content Version: 12.2 ?? 5249-2179 [employer]. Care instructions adapted under license by [facility]. If you have questions about a medical condition or this instruction, always ask your healthcare professional. [employer] disclaims any warranty or liability for your [...] the day after the procedure, use an yymc-sgk-biibsup spray to numb your throat. Sucking on [...] occurs, please contact your Doctor. Please call [phone] before 8pm Mon-Fri with problems, questions or concerns. If you call after 8pm or on weekends, call the Hospital at [phone] and ask to speak to the Billet Heater Operator education general manager and the building equipment operator will contact that person for you. [...] any problems. Where can you learn more? myD- View your After Visit Summary and more online at [email or web address] If you would like to provide [...] cost to you. Content Version: 12.2 ?? 3145-1674 [employer]. Care instructions adapted under license by [facility]. If you have questions about a medical condition or this instruction, always ask your healthcare professional. [employer] disclaims any warranty or liability for your [...] x 3 weeks 40 g 08/11/2020 08/17/2022 lsfpfu-imlxgzzy-ibkcah e (Creon 6) 6,000-19,000 -30,000 unit Capsule, [...] to Encounter Medication Sig Dispense Refill ??? xljzcv-awqcffbg-lnzldfu DR (Creon 6) 6,000-19,000 -30,000 unit Capsule, [...] Gar MD - 10/20/2020 1:12 PM EDT [facility] Operative Note Patient Name: Mathew Mendez : [id number] MR#: [id number] Case Date: 10/20/2020 Surgeon: Surgeon(s) and Role: [...] 9:30 AM EST Hospital Encounter [place] [address] Lawrence Gar MD [facility] [place] [address] 04/06/2024 9:30 AM EST - 04/06/2024 10:00 AM EST Surgery [place] [address] Lawrence Gar MD [facility] [place] [address] EGD, UPPER GI ENDOSCOPY (WRVU 2.09) 05/06/2024 9:00 AM EST Office Visit Nephrology [place] [address] Jovani Richardson MD [facility] [place] [place] [address] A, Nurse Clinician None 11/17/2024 4:20 PM EDT Office Visit [place] [address] Lawrence Gar MD [facility] [place] [address] Scheduled Procedures Name Priority Associated Diagnoses Date/Ti [...] 2:16 PM EDT Colonoscopy, Remv Lesn, Snare ([id number]) 10/20/2020 1:03 PM EDT Alcohol-induced chronic pancreatitis Screen for colon cancer Gastroesophageal reflux disease, unspecified whether esophagitis present UPPER EUS- ENDOSCOPIC ULTRASOUND (WRVU 3.47) 10/20/2020 1:03 PM EDT Alcohol-induced chronic pancreatitis Screen for colon cancer Gastroesophageal reflux disease, unspecified whether esophagitis present Upper Gi Endoscopy, Biopsy ([id number]) 10/20/2020 1:03 PM EDT Alcohol-induced chronic pancreatitis Screen for colon cancer Gastroesophageal reflux disease, unspecified whether esophagitis present UPPER EUS-ENDOSCOPIC ULTRASOUND Routine 10/20/2020 12:46 PM EDT COLONOSCOPY Routine 10/20/2020 12:46 PM EDT documented in this encounter Results * Surgical Pathology Report (10/20/2020 2:16 PM EDT) Final Diagnosis [id number] ? Location: 4T; EA12; A The signing [...] Shyla Verified: ??11/02/2020 15:00 ??Pathologist Performed at: ??-[facility] Dept. of Pathology, [place], [place] DISCUSSION A - ??The findings are [...] and bisected ??MLL 11/02/2020 3:00 PM EDT [facility] GI Biopsy 10/20/2020 2:16 PM EDT 10/20/2020 2:16 PM EDT GI Biopsy 10/20/2020 2:16 PM EDT 10/20/2020 2:16 PM EDT GI Biopsy 10/20/2020 2:16 PM EDT 10/20/2020 2:16 PM EDT GI Biopsy 10/20/2020 2:16 PM EDT 10/20/2020 2:16 PM EDT GI Biopsy 10/20/2020 2:16 PM EDT 10/20/2020 2:16 PM EDT Lawrence Gar MD PATHOLOGY/CYTOLOGY O SONIYA Performing Organization Address [facility]/ZIP Co de Phone Number [facility] [place] [address] * Specimen to Pathology (10/20/2020 2:16 PM EDT) AP Specimen 10/20/2020 2:16 PM EDT 10/20/2020 2:16 PM EDT Narrative [facility] - 10/20/2020 2:16 PM EDT Specimen requisition ordered. ??Separate Pathology report to follow Lawrence Gar MD PATHOLOGY/CYTOLOGY O SONIYA Performing Organization Address City/[facility]/ZIP Co de Phone Number [facility] [place] [address] * Specimen to Pathology (10/20/2020 2:16 PM EDT) AP Specimen 10/20/2020 2:16 PM EDT 10/20/2020 2:16 PM EDT Narrative [facility] - 10/20/2020 2:16 PM EDT Specimen requisition ordered. ??Separate Pathology report to follow Lawrence Gar MD PATHOLOGY/CYTOLOGY O SONIYA Performing Organization Address City/[facility]/ZIP Co de Phone Number [facility] [place] [address] * Specimen to Pathology (10/20/2020 2:16 PM EDT) AP Specimen 10/20/2020 2:16 PM EDT 10/20/2020 2:16 PM EDT Narrative [facility] - 10/20/2020 2:16 PM EDT Specimen requisition ordered. ??Separate Pathology report to follow Lawrence Gar MD PATHOLOGY/CYTOLOGY O RDALBERTINA Performing Organization Address City/[facility]/[place] [address] * Specimen to Pathology (10/20/2020 2:16 PM EDT) AP Specimen 10/20/2020 2:16 PM EDT 10/20/2020 2:16 PM EDT Narrative [facility] - 10/20/2020 2:16 PM EDT Specimen requisition ordered. ??Separate Pathology report to follow Lawrence Gar MD PATHOLOGY/CYTOLOGY O SONIYA Performing Organization Address [facility]/[place] [address] * Specimen to Pathology (10/20/2020 2:16 PM EDT) AP Specimen 10/20/2020 2:16 PM EDT 10/20/2020 2:16 PM EDT Narrative [facility] - 10/20/2020 2:16 PM EDT Specimen requisition ordered. ??Separate Pathology report to follow Lawrence Gar MD PATHOLOGY/CYTOLOGY O RDERAXIN Performing Organization Address City/[facility]/[place] [address] * UPPER EUS-ENDOSCOPIC ULTRASOUND (10/20/2020 12:46 PM EDT) UPPER ENDOSCOPIC ULTRASOUND [facility] Endoscopy Procedure Date: 10/20/2020 12:46 PM ? Patient Name: Mathew Mendez ? Date of : 1955 ? Age: 65 ? Order #: [id number] ? Instrument Name: [id number] ? Procedure: ? Upper EUS Indications: ? Dysphagia, Follow-up of ? gastro-esophageal reflux disease Providers: ? Lawrence Gar MD, Sarina Pinto, ? Adela Patino, Ilya Schroeder Referring MD: ?Jovani Wharton, DO Medicines: ? Monitored Anesthesia Care Complications: ? No immediate complications. Procedure: ? Pre-Anesthesia Assessment: ? - [place] Protocol: ? - Pre-procedure Verification: Prior ? [...] by the physician, the nurse, ? the industrial relations specialist and the patient services technician in ? the pre-procedure area in [...] Procedure Code(s): ?? --- Professional --- ? 15592, Esophagogastroduodenos copy, ? flexible, transoral; with endoscopic ? ultrasound examination, including the ? esophagus, stomach, and either the ? duodenum or a surgically altered ? stomach where the jejunum is examined ? distal to the anastomosis ? 20801, Esophagogastroduodenos copy, ? flexible, transoral; with biopsy, [...] ? disease without esophagitis CPT copyright 2019 [employer]. All rights reserved. The codes documented in this report are preliminary and upon retail sales vitamin consultant review may be revised to meet current [...] * COLONOSCOPY (10/20/2020 12:46 PM EDT) COLONOSCOPY [facility] Endoscopy Procedure Date: 10/20/2020 12:46 PM ? Patient Name: Mathew Mendez ? N: [id number] ? Date of : 1955 ? Age: 65 ? Order #: [id number] ? Instrument Name: [id number] ? Procedure: ? Colonoscopy Indications: ? Screening for colorectal malignant ? neoplasm Providers: ? Lawrence Gar MD, Sarina Pinto, ? Ilya Scales MD: ?Jovani Wharton, DO Medicines: ? Monitored Anesthesia Care Complications: ? No immediate complications. Procedure: ? Pre-Anesthesia Assessment: ? - [place] Protocol: ? - Pre-procedure Verification: Prior ? [...] by the physician, the nurse, ? the industrial relations specialist and the patient services technician in ? the procedure room. ? [...] Procedure Code(s): ?? --- Professional --- ? 98275, Colonoscopy, flexible; with ? removal of tumor(s), [...] and ? anastomosis status CPT copyright 2019 [employer]. All rights reserved. The codes documented in this report are preliminary and upon retail sales vitamin consultant review may be revised to meet current [...] reflux disease Esophageal reflux Sharma's esophagus with high grade dysplasia Sharma's [...] CRNA) documented in this encounter Care Teams Java Spring Developer Relationship Specialty Start Date End Date Jovani Wharton DO [address] [place] [address] [address] [place] [address] PCP - General Family Medicine 10/18/16 06/18/22 documented as of this encounter
--- OUTSIDE RECORDS SUMMARY | 2024-02-18 09:34 | XMS_ITS | Encounter Summary ---
Author Organization [facility] [place] [address] Care Team Providers Care Director Consumer Name Role Phone Slade Tran MD Primary Care Provider [phone] Encounter Details Date Type Department Care Team [...] 9:30 AM EST Hospital En[place] [address] Lawrence Gar MD [facility] [place] [address] 04/06/2024 9:30 AM EST - 04/06/2024 10:00 AM EST Surgery [place] [address] Lawrence Gar MD [facility] [place] [address] EGD, UPPER GI ENDOSCOPY (WRVU 2.09) 05/06/2024 9:00 AM EST Office Visit Nephrology [place] [address] Jovani Richardson MD [facility] [place] [address] A, Nurse Clinician None 11/17/2024 4:20 PM EDT Office [place] [address] Lawrence Gar MD [facility] [place] [address] Scheduled Procedures Name Priority Associated Diagnoses Date/Ti me EGD, UPPER GI ENDOSCOPY (WRVU 2.09) Sharma's esophagus with high grade dysplasia 04/06/2024 9:30 AM EST documented as of this encounter Visit Diagnoses Not on filedocumented in this encounter Care Teams Director Consumer Relationship Specialty Start Date End Date Slade Tran MD PCP - General Family Medicine 06/19/22 11/05/23 documented as of this encounter
--- OUTSIDE RECORDS SUMMARY | 2024-02-18 09:34 | XMS_ITS | Encounter Summary ---
Author Organization [facility] Address [facility] [place] [address] Care Team Providers Care Rounding Machine Operator Name Role Phone DioJovani franks Primary Care Provider [phone] Encounter Details Date Type Department Care Team (Latest Contact Info) Description 07/04/2020 2:30 PM EST Procedure visit Dermatology at [place] [address] [place] [address] Dominguez Lopez MD [facility] [place] [address] Squamous cell carcinoma of skin of ear, [...] Patient Instructions * Patient Instructions* Mi Banda, SUPERCHARGER MECHANIC - 07/04/2020 2:30 PM EST Your staff surgeon today was Dominguez Lopez MD,PhD. Your wound(s) was repaired by ehit-ur-lngq stitches called a primary repair. You do [...] pounds for 5-7 days postoperatively. 5. Some pin sorter and bagger may need to be delayed or delegated [...] as often as is recommended by your research engineer marine equipment, for new skin cancers. This is once [...] it. If after hours, please call the licensed reactor operator or [phone] and ask for the research engineer marine equipment on-call. If you have any non-urgent questions or concerns, please feel free to call my office or contact me through our patient portal, [employer], at [email or web address] How to contact us during business hours Dermatology at [facility] [address]: Mohs scheduling or Mohs follow-up appointments: [phone] documented in this encounter Progress Notes * [...] 9:30 AM EST Hospital Encounter [place] [address] Lawrence Gar MD [facility] [place] [address] 04/06/2024 9:30 AM EST - 04/06/2024 10:00 AM EST Surgery [place] [address] Lawrence Gar MD [facility] DR [place] [address] EGD, UPPER GI ENDOSCOPY (WRVU 2.09) 05/06/2024 9:00 AM EST Office Visit Ne[place] [address] Jovani Richardson MD [facility] [place] [address] A, Nurse Clinician None 11/17/2024 4:20 PM EDT Office [place] [address] Lawrence Gar MD [facility] DR [place] [address] Scheduled Procedures Name Priority Associated Diagnoses Date/Ti me EGD, UPPER GI ENDOSCOPY (WRVU 2.09) Sharma's esophagus with high grade dysplasia 04/06/2024 9:30 AM EST documented as of this encounter Visit Diagnoses Diagnosis Squamous cell carcinoma of skin of ear, 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
--- OUTSIDE RECORDS SUMMARY | 2024-02-18 09:34 | XMS_ITS | Encounter Summary ---
Author Organization Count Includes [facility] Address [facility] [place] [address] Care Team Providers Care Diesel Engine Specialist Name Role Phone DioJovani franks Primary Care Provider Reason for Visit * Consultation (Routine) - Closed Specialty Diagnoses / Procedures Referred By Devaughn bobo Referred To Contact Dermatology Diagnoses SCC (squamous cell carcinoma) Deb Hamlin MD [facility] DR TOM [place] [address] Dominguez Lopez MD [facility] DR T[place] [address] Referral ID Status Reason Start Date Expiration Date V isits Requested Visits Authorized [id number] Closed Consult, Test & Treat 04/29/2020 04/29/2021 1 1 Encounter Details Date Type Department Care Team (Latest Contact Info) Description 06/14/2020 11:00 AM EST Procedure visit Dermatology at [facility] [address] [place] [address] Dominguez Lopez MD [facility] DR T[place] [address] Squamous cell carcinoma of skin of helix [...] until your sutures are removed. 5. Some advanced manufacturing technician may need to be delayed or delegated [...] as often as is recommended by your director of retail operations, for new skin cancers. This is once [...] it. If after hours, please call the automatic oven operator or [phone] and ask for the director of retail operations on-call. If you have any non-urgent questions or concerns, please feel free to call my office or contact me through our patient portal, [email or web address], at [email or web address] How to contact us during business hours Dermatology at [facility] Road: Mohs scheduling or Mohs follow-up appointments: [phone] documented in this encounter Progress Notes * [...] and follow up with his or her director of retail operations or other skin provider. 6. Discussed avoiding [...] Reviewed and signed by: Dominguez Lopez Dermatology [facility] * Dominguez Lopez MD - 06/14/2020 11:00 AM EST Mohs micrographic Surgery Operative Report Patient name: Mathew Mendez : 1955 Date: 06/15/2020 Staff Surgeon: Dominguez Lopez MD PhD Nursing/Band And Cuff Cutter(s): Milvia Mancilla RN, Mary LoyaReyes COLEN, Serina Taylor CMA, Alan Jaffe CMA, Analia Mendoza CMA Log Grader (s): Elena Barriga Pre-operative diagnosis: Squamous Cell [...] The site was confirmed with the patient/authorized screening representative/referring physician and/or a photograph form time [...] Mendez Staff Surgeon: Dominguez Lopez MD PhD Communications Agent(s): same as above ict sales assistant: Serina Taylor CMA Date: 06/15/2020 Clinical Diagnosis: skin and soft tissue defect status post Mohs micrographic surgery Location/Site: Right mid helix Indication: repair of wound with pentecostal of anatomy/function Defect size to be repaired: [...] and Dermatologic Oncology Department of Dermatology [address] [place] [address] Note initiated by Serina Taylor CMA. Serina Taylor CMA has performed the documentation for this encounter in the presence of and acting as a scribe for Dr. Hugo Suarez performed the above scribed service and agree with the accuracy of the documentation in this encounter. Reviewed and signed by: Dominguez Lopez Dermatology [facility] documented in this encounter Plan of Treatment Upcoming Encounters Date Type Department Care Team (Latest Contact Info) Description 04/06/2024 9:30 AM EST Hospital Encounter Gastroenterology at [place] [phone] Lawrence Gar MD [facility] [place] [address] 04/06/2024 9:30 AM EST - 04/06/2024 10:00 AM EST Surgery Gastroenterology at [place] [phone] Lawrence Gar MD [facility] [place] [address] EGD, UPPER GI ENDOSCOPY (WRVU 2.09) 05/06/2024 9:00 AM EST Office Visit Nephrology Hypertension at [place] [phone] Jovani Richardson MD [facility] [place] [address] A, Nurse Clinician None 11/17/2024 4:20 PM EDT Office Visit Gastroenterology at [place] [phone] Lawrence Gar MD [facility] [place] [address] Scheduled Procedures Name Priority Associated Diagnoses Date/Ti me EGD, UPPER GI ENDOSCOPY (WRVU 2.09) Sharma's esophagus with high grade dysplasia 04/06/2024 9:30 AM EST documented as of this encounter Visit Diagnoses Diagnosis 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
--- OUTSIDE RECORDS SUMMARY | 2024-02-18 09:34 | XMS_ITS | Encounter Summary ---
Author Organization [facility] Address [facility] [place] [address] Care Team Providers Care Commercial Horticulture Instructor Name Role Phone DioJovani franks Primary Care Provider Encounter Details Date Type Department Care Team (Late st Contact Info) Description 08/11/2020 10:00 AM EDT Office Visit Dermatology at [facility] [address] [place] [address] Deb Hamlin MD [facility] DR TOM [place] [address] [place] (actinic keratosis); Nummular eczema Social History [...] by Dr. Hamlin: 04/25/2020 Last seen in [facility] Dermatology: 04/25/2020 Here today with the [...] allopurinoL, amLODIPine, cephALEXin, cyanocobalamin (Vitamin B-12), lansoprazole, jmajeg-sejgopdj-nsottbj DR, lisinopriL, magnesium, and metoprolol succinate XL [...] and signed by: Deb Hamlin MD Dermatology [facility] documented in this encounter Plan of Treatment Upcoming Encounters Date Type Department Care Team (Latest Contact Info) Description 04/06/2024 9:30 AM EST Hospital En[place] [address] Lawrence Gar MD [facility] [place] [address] 04/06/2024 9:30 AM EST - 04/06/2024 10:00 AM EST [place] [address] Lawrence Gar MD [facility] [place] [address] EGD, UPPER GI ENDOSCOPY (WRVU 2.09) 05/06/2024 9:00 AM EST Office Visit [place] [address] Jovani Richardson MD [facility] [place] [address] A, Nurse Clinician None 11/17/2024 4:20 PM EDT Office [place] [address] Lawrence Gar MD [facility] [place] [address] Scheduled Procedures Name Priority Associated Diagnoses Date/Ti me EGD, UPPER GI ENDOSCOPY (WRVU 2.09) Sharma's esophagus with high grade dysplasia 04/06/2024 9:30 AM EST documented as of this encounter Visit Diagnoses Diagnosis AK (actinic keratosis) Actinic keratosis Nummular eczema Contact dermatitis and other eczema, due to unspecified cause Sharma's esophagus with high grade dysplasia Sharma's esophagus documented in this encounter Care Teams Commercial Horticulture Instructor Relationship Specialty Start Date End Date Jovani Wharton DO [address] [place] [address] [address] [place] [address] PCP - General Family Medicine 10/18/16 06/18/22 documented as of this encounter
--- OUTSIDE RECORDS SUMMARY | 2024-02-18 09:34 | XMS_ITS | Encounter Summary ---
[place] [address] Care Team Providers Care Core Dipper Name Role Phone Slade Tran MD Primary Care Provider [phone] Encounter Details Date Type Department Care Team (Late st Contact Info) Description 07/10/2022 Telephone [place] [phone] Patsy Quintero Social History Tobacco Use Types [...] calls can be handled by: Any Gastro Ada documented in this encounter Plan of Treatment Upcoming Encounters Date Type Department Care Team (Latest Contact Info) Description 04/06/2024 9:30 AM EST Hospital Encounter [place] [address] Lawrence Gar MD [facility] [place] [address] 04/06/2024 9:30 AM EST - 04/06/2024 10:00 AM EST Surgery Gastroenterology at [place] [phone] Lawrence Gar MD [facility] [place] [address] EGD, UPPER GI ENDOSCOPY (WRVU 2.09) 05/06/2024 9:00 AM EST Office Visit Nephrology Hypertension at [place] [phone] Jovani Richardson MD [facility] [place] [address] A, Nurse Clinician None 11/17/2024 4:20 PM EDT Office Visit Gastroenterology at [place] [phone] Lawrence Gar MD [facility] [place] [address] Scheduled Procedures Name Priority Associated Diagnoses Date/Ti me EGD, UPPER GI ENDOSCOPY (WRVU 2.09) Sharma's esophagus with high grade dysplasia 04/06/2024 9:30 AM EST documented as of this encounter Visit Diagnoses Not on filedocumented in this encounter Care Teams Core Dipper Relationship Specialty Start Date End Date Slade Tran MD PCP - General Family Medicine 06/19/22 11/05/23 documented as of this encounter
--- OUTSIDE RECORDS SUMMARY | 2024-02-18 09:34 | XMS_ITS | Encounter Summary ---
Author Organization [facility] Address [facility] [place] [address] Care Team Providers Care Asset Protection Professional Name Role Phone DioJovani franks Primary Care Provider Encounter Details Date Type Department Care Team (Latest Contact Info) Description 06/20/2020 1:45 PM EST Clinical Support Dermatology at [address] [phone] Dominguez Lopez MD [facility] [place] [address] Visit for wound check Social History Tobacco [...] antibiotic the evening before. [facility] [place] [place]. Dominguez Lopez MD PhD Mohs Micrographic Surgery and Dermatologic Oncology Department of Dermatology documented in this encounter Plan of Treatment Upcoming Encounters Date Type Department Care Team (Latest Contact Info) Description 04/06/2024 9:30 AM EST Hospital Encounter [place] [address] Lawrence Gar MD [facility] [place] [address] 04/06/2024 9:30 AM EST - 04/06/2024 10:00 AM EST Surgery Gastroenterology at [place] [phone] Lawrence Gar MD [facility] [place] [address] EGD, UPPER GI ENDOSCOPY (WRVU 2.09) 05/06/2024 9:00 AM EST Office Visit Nephrology Hypertension at [place] [phone] Jovani Richardson MD [facility] [place] [address] A, Nurse Clinician None 11/17/2024 4:20 PM EDT Office Visit [place] [address] Lawrence Gar MD [facility] [place] [address] Scheduled Procedures Name Priority Associated Diagnoses Date/Ti ca EGD, UPPER GI ENDOSCOPY (WRVU 2.09) Sharma's esophagus with high grade dysplasia 04/06/2024 9:30 AM EST documented as of this encounter Visit Diagnoses Diagnosis Visit for wound check Encounter for other specified aftercare Sharma's esophagus with high grade dysplasia Sharma's esophagus documented in this encounter Care Teams Asset Protection Professional Relationship Specialty Start Date End Date Jovani Wharton DO [address] [place] [address] PCP - General Family Medicine 10/18/16 06/18/22 documented as of this encounter
--- OUTSIDE RECORDS SUMMARY | 2024-02-18 09:34 | XMS_ITS | Encounter Summary ---
Author Organization [facility] [place] [address] Care Team Providers Care Leather Heel Breaster Name Role Phone DioJovani franks Primary Care Provider Encounter Details Date Type Department Care Team (Late st Contact Info) Description 08/22/2020 Telephone [place] [address] Cynthia Kim Social History Tobacco Use Types [...] 9:30 AM EST Hospital En[place] [address] Lawrence Gar MD [facility] [place] [address] 04/06/2024 9:30 AM EST - 04/06/2024 10:00 AM EST [place] [address] Lawrence Gar MD [facility] [address] EGD, UPPER GI ENDOSCOPY (WRVU 2.09) 05/06/2024 9:00 AM EST Office Visit [place] [phone] Jovani Richardson MD [facility] [place] [address] A, Nurse Clinician None 11/17/2024 4:20 PM EDT Office [place] [phone] Lawrence Gar MD [facility] [place] [address] Scheduled Procedures Name Priority Associated Diagnoses Date/Ti me EGD, UPPER GI ENDOSCOPY (WRVU 2.09) Sharma's esophagus with high grade dysplasia 04/06/2024 9:30 AM EST documented as of this encounter Visit Diagnoses Not on filedocumented in this encounter Care Teams Leather Heel Breaster Relationship Specialty Start Date End Date Jovani Wharton DO [address] [place] [address] PCP - General Family Medicine 10/18/16 06/18/22 documented as of this encounter
--- OUTSIDE RECORDS SUMMARY | 2024-02-18 09:34 | XMS_ITS | Encounter Summary ---
Author Organization [facility] [place] [address] Care Team Providers Care Piece Maker Name Role Phone Jovani Wharton DO Primary Care Provider [phone] Encounter Details Date Type Department Care Team (Late st Contact Info) Description 06/02/2020 Ancillary Procedure Radiology Library [place] [address] Jovani Wharton DO [address] [place], [place] [id number] Social History Tobacco Use Types Packs/Day Years [...] 9:30 AM EST Hospital En[place] [address] Lawrence Gar MD [facility] [place]STR[facility] [address] 04/06/2024 9:30 AM EST - 04/06/2024 10:00 AM EST [place] [address] Lawrence Gar MD [facility] [place] [address] EGD, UPPER GI ENDOSCOPY (WRVU 2.09) 05/06/2024 9:00 AM EST Office Visit [place] [address] Jovani Richardson MD [facility] [place] [address] A, Nurse Clinician None 11/17/2024 4:20 PM EDT Office [place] [phone] Lawrence Gar MD [facility] [place] [address] Scheduled Procedures Name Priority Associated Diagnoses Date/Ti hi EGD, UPPER GI ENDOSCOPY (WRVU 2.09) Sharma's esophagus with high grade dysplasia 04/06/2024 9:30 AM EST documented as of this encounter Procedures Procedure Name Priority Date/Time Associated Diagnosis Comments FILM LIBRARY STORAGE ONLY CT ABDOMEN AND PELVIS Routine 06/02/2020 12:00 AM EST documented in this encounter Results * Film Library- Storage Only CT Abdomen & Pelvis (06/02/2020 12:00 AM EST) Narrative [facility] - 07/23/2021 9:13 PM EST This exam is auto-finalizing. It's purpose is for storage only. Jovani Wharton DO IMG FILM LIBRARY ORD ERABLES [place], [place] documented in this encounter Visit Diagnoses Not on filedocumented in this encounter Care Teams Piece Maker Relationship Specialty Start Date End Date Jovani Wharton DO [address] [place] [address] PCP - General Family Medicine 10/18/16 06/18/22 documented as of this encounter
--- OUTSIDE RECORDS SUMMARY | 2024-02-18 09:34 | XMS_ITS | Encounter Summary ---
Author Organization [facility] [place] [address] Care Team Providers Care Pipe Fitter Supervisor Name Role Phone DioJovani franks Primary Care Provider Encounter Details Date Type Department Care Team (Latest Contact Info) Description 06/27/2021 1:00 PM EST Laboratory Appointment Lab [address] [place] [address] CKD (chronic kidney disease) stage [...] 9:30 AM EST Hospital Encounter [place] [address] Lawrence Gar MD [facility] [place] [address] 04/06/2024 9:30 AM EST - 04/06/2024 10:00 AM EST Surgery [place] [address] Lawrence Gar MD [facility] [place] [address] EGD, UPPER GI ENDOSCOPY (WRVU 2.09) 05/06/2024 9:00 AM EST Office Visit Neph[place] [phone] Jovani Richardson MD [facility] [place] [address] A, Nurse Clinician None 11/17/2024 4:20 PM EDT Office Visit [place] [phone] Lawrence Gar MD [facility] [place] [place] [address] Scheduled Procedures Name Priority Associated Diagnoses Date/Ti [...] GFR 15-29 ml/min BASIC METABOLIC PANEL Routine 06/27/2021 1:21 PM EST CKD (chronic kidney disease) stage 4, GFR 15-29 ml/min HC PROTEIN, QUANTITATIVE, URINE Routine 06/27/2021 1:19 PM EST CKD (chronic kidney disease) stage 4, GFR 15-29 ml/min HC UA W/OUT MICROSCOPIC Routine 06/27/2021 1:19 PM EST CKD (chronic kidney disease) stage 4, GFR 15-29 ml/min documented in this encounter Results * Differential, Automated (06/27/2021 1:21 PM EST) Neutrophil % 67.1 % [facility] Neutrophil Absolute 4.41 1.70 - 6.10 x10(3)/[facility] Lymph % 15.1 % [facility] Lymphocytes Abs 1.0 0.9 - 3.2 x10(3)/[facility] Monocyte % 10.5 % [facility] Monocyte Abs 0.7 0.3 - 0.9 x10(3)/[facility] Eos % 6.1 % [facility] Eosinophils Abs 0.4 0.0 - 0.4 x10(3)/[facility] Basophil % 0.9 % [facility] Baso Absolute 0.1 0.0 - 0.1 x10(3)/[facility] Immature Gran % 0.30 % [facility] Comment: Immature granulocytes(IG's)percentage and absolute count will include metamyelocytes, myelocytes, and promyelocytes. Blood smears from CBCs yielding IG's will be scanned manually for concordance. If this scan disagrees with the automated IG or if promyelocytes are noted, a manual differential will be performed. Immature Gran Absolute 0.02 0.00 - 0.04 x10(3)/mcL [facility] Blood 06/27/2021 1:21 PM EST 06/27/2021 1:27 PM EST Narrative Resulting Agency Comment Spec In Lab Divine Hernandze PATIENT FINANCIAL AD[employer]ATE HEMATOLOGY ORDERA BLES Performing Organization Address City/State/[facility] Co de Phone Number [facility] [place] [address] * (ABNORMAL) Hemogram (06/27/2021 1:21 PM EST) White Blood Cell 6.6 4.0 - 9.5 x10(3)/[facility] Red Blood Cell 3.38(L) 4.58 - 5.54 x10(6)/[facility] Hemoglobin 10.6(L) 13.7 - 16.5 g/dL [facility] Hematocrit 31.6(L) 40.5 - 48.5 % [facility] Mean Cell Volume 93.5(H) 82.9 - 93.1 fL [facility] Mean Cell Hemoglobin 31.4 27.5 - 32.1 pg [facility] Mean Cell Hemoglobin Concentration 33.5 32.0 - 35.7 g/dL [facility] Platelet 254 145 - 357 x10(3)/[facility] RDW Standard Deviation 47.0(H) 36.0 - 45.0 [facility] RDW coefficient of variation 13.7 11.4 - 13.8 % [facility] Mean Platelet Volume 10.6 7.6 - 12.9 [facility] NRBC% auto 0.0 % [facility] NRBC Absolute 0.000 0.000 - 0.000 x10(3)/[facility] Blood 06/27/2021 1:21 PM EST 06/27/2021 1:27 PM EST Narrative Resulting Agency Comment Spec In Lab Divine Hernandez PATIENT [employer]CIAL ADV[employer]ATE HEMATOLOGY ORDERA BLES [facility] [place] [address] * (ABNORMAL) Basic Metabolic Panel (non-fasting) (06/27/2021 1:21 PM EST) Glucose 101 65 - 199 mg/dL [facility] Comment:Diabetes: >=200 mg/d L plus symptoms Blood Urea Nitrogen 43(H) 10 - 20 mg/dL [facility] Creatinine 2.62(H) 0.80 - 1.50 mg/dL [facility] Sodium 139 135 - 145 mmol/L [facility] Potassium 4.4 3.5 - 5.0 mmol/L [facility] Comment: Please note: ??Patients with WBC >100,000 may have falsely elevated Potassium levels. ??For accurate Potassium quantification in these patients send serum separator tube (gold top) for subsequent determinations. ??Contact the Clinical Chemistry Laboratory if there are any questions. Chloride 109(H) 98 - 107 mmol/L [facility] Carbon Dioxide 17(L) 22 - 31 mmol/L [facility] Anion Gap 13 5 - 15 mmol/L [facility] Calcium 9.2 8.5 - 10.5 mg/dL [facility] Est Glomerular Filtration Rate 24(L) >=60 mL/min/1. 73 m?? [facility] Comment: This patient? s [...] Agency Comment Spec In Lab Divine Hernandez PATIENT FINANCIAL ADVOCATE CHEMISTRY ORDERAB LES Performing Organization Address [facility] Co de Phone Number [facility] [place] [address] * Albumin Level (06/27/2021 1:21 PM EST) Albumin 4.5 3.2 - 5.2 g/dL [facility] Blood 06/27/2021 1:21 PM EST 06/27/2021 1:28 PM EST Narrative Resulting Agency Comment Spec In Lab Divinenito Hernandez PATIENT FINANCIAL ADVOCATE CHEMISTRY ORDERAB LES Performing Organization Address [facility] Co de Phone Number [facility] [place] [address] * Phosphorus (06/27/2021 1:21 PM EST) Phosphorus 3.0 2.5 - 4.5 mg/dL [facility] Blood 06/27/2021 1:21 PM EST 06/27/2021 1:28 PM EST Narrative Resulting Agency Comment Spec In Lab Divine Hernandez PATIENT FINANCIAL ADVOCATE CHEMISTRY ORDERAB LES Performing Organization Address [facility] Co de Phone Number [facility] [place] [address] * (ABNORMAL) PTH (06/27/2021 1:21 PM EST) Parathyroid Hormone 98(H) 15 - 65 pg/mL [facility] Blood 06/27/2021 1:21 PM EST 06/27/2021 1:27 PM EST Narrative Resulting Agency Comment Spec In Lab Divine L Mary PATIENT FINANCIAL ADVOCATE CHEMISTRY ORDERAB LES Performing Organization Address City/[facility]/ZIP Co de Phone Number [facility] [place] [address] * (ABNORMAL) Protein/Creatinine Ratio, urine (06/27/2021 1:19 PM EST) Creatinine, Urine 147 mg/dL [facility] Protein, Urine 107(H) 0 - 12 mg/dL [facility] Protein / Creatinine Ratio, Urine 0.7 ratio [facility] Urine 06/27/2021 1:19 PM EST 06/27/2021 1:30 PM EST Narrative Resulting Agency Comment Spec In Lab Divine Hernandez PATIENT FINANCIAL ADVOCATE URINE ORDERABLES Performing Organization Address [facility] Co de Phone Number [facility] [place] [address] * (ABNORMAL) Urinalysis without microscopic (06/27/2021 1:19 PM EST) Glucose, Urine Dipstick Negative Negative mg/dL [facility] Protein, Urine Dipstick 100(A) Negative mg/dL [facility] Bilirubin, Urine Dipstick Negative Negative mg/dL [facility] Comment: Clinical correlation required for positive Urine Bilirubin results as false positive may occur with some drugs and drug related products. If a false positive is suspected a serum total bilirubin should be considered if clinically indicated. Urobilinogen, Urine Dipstick Normal Normal mg/dL [facility] pH, Urn (dipstick) 5.5 5.0 - 8.0 [facility] Blood, Urine Dipstick Negative Negative mg/dL [facility] Ketone, Urine Dipstick Trace(A) Negative mg/dL [facility] Nitrite, Urine Dipstick Negative Negative [facility] Leukocytes, Urine Dipstick Negative Negative [facility] Appearance, Urine Dipstick Clear Clear [facility] Specific [place] Urine Automated 1.018 1.005 - 1.030 [facility] Color, Urine Dipstick Yellow Yellow [facility] Urine 06/27/2021 1:19 PM EST 06/27/2021 1:30 PM EST Narrative Resulting Agency Comment Spec In Lab Divine Hernandez PATIENT FINANCIAL ADVOCATE URINE ORDERABLES Performing Organization Address City/State/[facility] Co de Phone Number [facility] [place] [address] documented in this encounter Visit Diagnoses Diagnosis CKD (chronic kidney disease) stage 4, GFR 15-29 ml/min Chronic kidney disease, Stage IV (severe) Sharma's esophagus with high grade dysplasia Sharma's esophagus documented in this encounter Care Teams Pipe Fitter Supervisor Relationship Specialty Start Date End Date Jovani Wharton DO [address] [place] [address] PCP - General Family Medicine 10/18/16 06/18/22 documented as of this encounter
--- OUTSIDE RECORDS SUMMARY | 2024-02-18 09:35 | XMS_ITS | Encounter Summary ---
Author Organization [facility] Address [facility] [place] [address] Care Team Providers Care Patient Registration Specialist Name Role Phone DioJovani franks Primary Care Provider Encounter Details Date Type Department Care Team (Late st Contact Info) Description 01/14/2020 11:00 AM EDT Office Visit Dermatology at [facility] [address] [place] [address] Deb Hamlin MD [facility] DR [facility] [place] [address] Actinic keratoses; History of SCC (squamous cell [...] No ?? Other No ? 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 Medications: allopurinoL, amLODIPine, augmented [...] ill defined gritty papules on the right episcopal x3, left cheek x2, left forehead x1, [...] of SCC) . Note initiated by Adela Pion CMA. Amy Stanton has performed the documentation [...] 9:30 AM EST Hospital Encounter [place] [address] Lawrence Gar MD [facility] [place] [address] 04/06/2024 9:30 AM EST - 04/06/2024 10:00 AM EST Surgery [place] [address] Lawrence Gar MD [facility] [place] [address] EGD, UPPER GI ENDOSCOPY (WRVU 2.09) 05/06/2024 9:00 AM EST Office Visit [place] [address] Jovani Richardson MD [facility] [place] [address] A, Nurse Clinician None 11/17/2024 4:20 PM EDT Office [place] [address] Lawrence Gar MD [facility] [place] [address] Scheduled Procedures Name Priority Associated Diagnoses Date/Ti me EGD, UPPER GI ENDOSCOPY (WRVU 2.09) Sharma's esophagus with high grade dysplasia 04/06/2024 9:30 AM EST documented as of this encounter Visit Diagnoses Diagnosis Actinic keratoses Actinic keratosis History of SCC (squamous cell carcinoma) of skin Personal history of other malignant neoplasm of skin Sharma's esophagus with high grade dysplasia Sharma's esophagus documented in this encounter Care Teams Patient Registration Specialist Relationship Specialty Start Date End Date Jovani Wharton DO [address] [place] [address] PCP - General Family Medicine 10/18/16 06/18/22 documented as of this encounter
--- OUTSIDE RECORDS SUMMARY | 2024-02-18 09:35 | XMS_ITS | Encounter Summary ---
Author Organization Count Includes [facility] Address [facility] [place] [address] Care Team Providers Care Chain Tender Name Role Phone Jovnai Wharton DO Primary Care Provider Reason for Visit * Consultation (Routine) - Specialty Diagnoses / Procedures Referred By Devaughn bobo Referred To Contact Nephrology Diagnoses Acute kidney failure, unspecified Chronic kidney disease, unspecified Jovani Wharton DO [address] [place] [address] [facility] Nephrology [address] [place] [phone] Referral ID Status Reason Start Date Expiration Date V isits Requested Visits Authorized [id number] Consult, Test & Treat PCP Updated and/or Approved 12/15/2019 12/14/2020 1 1 Encounter Details Date Type Department Care Team (Latest Contact Info) Description 04/20/2020 4:30 PM EST Office Visit [place] [address] Jorge Gonzales MD [facility] [place] [place] [address] CKD (chronic kidney disease) stage [...] heavily. He had a recent admission to [facility] with pancreatitis. On 04-11-2020 his creatinine [...] EST Hospital En[place] [phone] Lawrence Gar MD [facility] [place] [address] 04/06/2024 9:30 AM EST - 04/06/2024 10:00 AM EST Surgery Gastroenterology at [place] [phone] Lawrence Gar MD [facility] [place] [address] EGD, UPPER GI ENDOSCOPY (WRVU 2.09) 05/06/2024 9:00 AM EST Office Visit [place] [phone] Jovani Richardson MD [facility] [place] [address] A, Nurse Clinician None 11/17/2024 4:20 PM EDT Office [place] [phone] Lawrence Gar MD [facility] [place] [address] Scheduled Orders Name Type Priority Associated Diagnoses [...] Scheduled Procedures Name Priority Associated Diagnoses Date/Ti ok EGD, UPPER GI ENDOSCOPY (WRVU 2.09) Sharma's [...] 2, GFR 60-89 ml/min BASIC METABOLIC PANEL STAT 04/20/2020 5:20 PM EST CKD (chronic kidney disease) stage 2, GFR 60-89 ml/min HC PROTEIN, QUANTITATIVE, URINE Routine 04/20/2020 4:30 PM EST CKD (chronic kidney disease) stage 2, GFR 60-89 ml/min documented in this encounter Results * Differential, Automated (04/20/2020 5:20 PM EST) Pathologist [facility] Neutrophil % 58.6 % [facility] Neutrophil Absolute 2.93 1.70 - 6.10 x10(3)/[facility] Lymph % 18.6 % [facility] Lymphocytes Abs 0.9 0.9 - 3.2 x10(3)/[facility] Monocyte % 15.2 % [facility] Monocyte Abs 0.8 0.3 - 0.9 x10(3)/[facility] Eos % 6.0 % [facility] Eosinophils Abs 0.3 0.0 - 0.4 x10(3)/[facility] Basophil % 1.4 % [facility] Baso Absolute 0.1 0.0 - 0.1 x10(3)/[facility] Immature Gran % 0.20 % [facility] Comment: Immature granulocytes(IG's)percentage and absolute count will include metamyelocytes, myelocytes, and promyelocytes. Blood smears from CBCs yielding IG's will be scanned manually for concordance. If this scan disagrees with the automated IG or if promyelocytes are noted, a manual differential will be performed. Immature Gran Absolute 0.01 0.00 - 0.04 x10(3)/[facility] Blood specimen (specimen) 04/20/2020 5:20 PM EST 04/20/2020 5:27 PM EST Narrative Resulting Agency Comment Spec In Lab Jorge Gonzales MD HEMATOLOGY ORDERABL ES [facility] [place] [address] * (ABNORMAL) Hemogram (04/20/2020 5:20 PM EST) [facility] White Blood Cell 5.0 4.0 - 9.5 x10(3)/ L [facility] Red Blood Cell 3.53(L) 4.58 - 5.54 x10(6)/ L [facility] Hemoglobin 11.0(L) 13.7 - 16.5 gm/dL [facility] Hematocrit 34.3(L) 40.5 - 48.5 % [facility] Mean Cell Volume 97.2(H) 82.9 - 93.1 fL [facility] Mean Cell Hemoglobin 31.2 27.5 - 32.1 pg [facility] Mean Cell Hemoglobin Concentration 32.1 32.0 - 35.7 gm/dL [facility] Platelet 211 145 - 357 x10(3)/mc L [facility] RDW Standard Deviation 48.3(H) 36.0 - 45.0 [facility] RDW coefficient of variation 13.5 11.4 - 13.8 % [facility] Mean Platelet Volume 10.6 7.6 - 12.9 [facility] NRBC% auto 0.0 % [facility] NRBC Absolute 0.000 0.000 - 0.000 x10(3)/ L [facility] Blood specimen (specimen) 04/20/2020 5:20 PM EST 04/20/2020 5:27 PM EST Narrative Resulting Agency Comment Spec In Lab Jorge Gonzales MD HEMATOLOGY ORDERABL ES [facility] [place] [address] * PTH (04/20/2020 5:20 PM EST) Parathyroid Hormone 51 15 - 65 pg/mL [facility] Blood specimen (specimen) 04/20/2020 5:20 PM EST 04/20/2020 5:27 PM EST Narrative Resulting Agency Comment Spec In Lab Jorge Gonzales MD CHEMISTRY ORDERABLE S [facility] [place] [address] * (ABNORMAL) Basic Metabolic Panel (non-fasting) (04/20/2020 5:20 PM EST) Glucose 117 65 - 199 mg/dL [facility] Comment:Diabetes: >=200 mg/d L plus symptoms Blood Urea Nitrogen 56(H) 10 - 20 mg/dL [facility] Creatinine 2.71(H) 0.80 - 1.50 mg/dL [facility] Sodium 140 135 - 145 mmol/L [facility] Potassium 4.5 3.5 - 5.0 mmol/L [facility] Comment: Please note: ??Patients with WBC >100,000 may have falsely elevated Potassium levels. ??For accurate Potassium quantification in these patients send serum separator tube (gold top) for subsequent determinations. ??Contact the Clinical Chemistry Laboratory if there are any questions. Chloride 107 98 - 107 mmol/L [facility] Carbon Dioxide 21(L) 22 - 31 mmol/L [facility] Anion Gap 12 5 - 15 mmol/L [facility] Calcium 9.7 8.5 - 10.5 mg/dL [facility] Est Glomerular Filtration Rate 23(L) >=60 mL/min/1. 73 m?? [facility] Comment: The eGFR was calculated using the CKD-EPI equation. As with all creatinine based estimates of kidney function, eGFR values calculated with the CKD-EPI equation are not accurate in patients with acute kidney failure, extremes of body mass or the acutely ill. http://[employer]/[facility] eGFR 27(L) >=60 mL/min/1. 73 m?? [facility] Comment: The eGFR was calculated using the CKD-EPI equation. As with all creatinine based estimates of kidney function, eGFR values calculated with the CKD-EPI equation are not accurate in patients with acute kidney failure, extremes of body mass or the acutely ill. http://[employer]/[facility] Blood specimen (specimen) 04/20/2020 5:20 PM EST 04/20/2020 5:27 PM EST Narrative Resulting Agency Comment Spec In Lab Jorge Gonzales MD CHEMISTRY ORDERABLE S Performing Organization Address [facility] Co de Phone Number [facility] [place] [address] * Hepatic Function Panel (04/20/2020 5:20 PM EST) Protein, Total 7.1 6.1 - 8.0 gm/dL [facility] Albumin 4.5 3.2 - 5.2 gm/dL [facility] Aspartate Aminotransferase 29 0 - 39 unit/L [facility] Alanine Aminotransferase 43 0 - 55 unit/L [facility] Alkaline Phosphatase 82 40 - 130 unit/L [facility] Bilirubin, Total 0.2 0.2 - 1.3 mg/dL [facility] Bilirubin, Direct 0.1 0.0 - 0.3 mg/dL [facility] Blood specimen (specimen) 04/20/2020 5:20 PM EST 04/20/2020 5:27 PM EST Narrative Resulting Agency Comment Spec In Lab Jorge Gonzales MD CHEMISTRY ORDERABLE S Performing Organization Address [facility] Phone Number [facility] [place] [address] * (ABNORMAL) Protein/Creatinine Ratio, urine (04/20/2020 4:30 PM EST) Creatinine, Urine 128 mg/dL [facility] Protein, Urine 110(H) 0 - 12 mg/dL [facility] Protein / Creatinine Ratio, Urine 0.9 ratio [facility] Urine specimen (specimen) 04/20/2020 4:30 PM EST 04/20/2020 5:12 PM EST Narrative Resulting Agency Comment Spec In Lab Jorge Gonzales MD URINE ORDERABLES Performing Organization Address City/[facility] Co de [place] [address] documented in this encounter Visit Diagnoses Diagnosis CKD (chronic kidney disease) stage 2, GFR 60-89 ml/min Chronic kidney disease, Stage II (mild) Sharma's esophagus with high grade dysplasia Sharma's esophagus documented in this encounter Care Teams Chain Tender Relationship Specialty Start Date End Date Jovani Wharton DO [address] [place] [address] PCP - General Family Medicine 10/18/16 06/18/22 documented as of this encounter
--- OUTSIDE RECORDS SUMMARY | 2024-02-18 09:35 | XMS_ITS | Encounter Summary ---
Author Organization [facility] Address [facility] [place] [address] Care Team Providers Care Fern Picker Name Role Phone Jovani Wharton DO Primary Care Provider [phone] Reason for Visit * Consultation (Routine) - Closed Specialty Diagnoses / Procedures Referred By Devaughn bobo Referred To Contact Nephrology Diagnoses Chronic kidney disease stage 3 [id number] ml/min Jovani Wharton DO [address] [place] [address] Jorge Gonzales MD [facility] [place] [place] [address] Referral ID Status Reason Start Date Expiration Date V isits Requested Visits Authorized [id number] Closed Consult, Test & Treat Connection Center 06/12/2017 06/12/2018 1 1 Encounter Details Date Type Department Care Team (Latest Contact Info) Description 07/10/2017 11:00 AM EST Office Visit Nephrology [place] [address] Jorge Gonzales MD [facility] [place] [address] Anemia of chronic renal failure, stage 3 [...] 9:30 AM EST Hospital Encounter Gastroenterology at [place] [phone] Lawrence Gar MD [facility] [place] [address] 04/06/2024 9:30 AM EST - 04/06/2024 10:00 AM EST Surgery [place] [address] Lawrence Gar MD [facility] [place] [address] EGD, UPPER GI ENDOSCOPY (WRVU 2.09) 05/06/2024 9:00 AM EST Office Visit Nephrology Hypertension at [place] [phone] Jovani Richardson MD [facility] [place] [address] A, Nurse Clinician None 11/17/2024 4:20 PM EDT Office Visit [place] [address] Lawrence Gar MD [facility] [place] [address] Scheduled Procedures Name Priority Associated Diagnoses Date/Ti me EGD, UPPER GI ENDOSCOPY (WRVU 2.09) Sharma's esophagus with high grade dysplasia 04/06/2024 9:30 AM EST documented as of this encounter Procedures Procedure Name Priority Date/Time Associated Diagnosis Comments BASIC METABOLIC PANEL STAT 07/10/2017 11:53 AM EST Anemia of chronic renal failure, stage 3 (moderate) PROTEIN/CREATININE RATIO, URINE Routine 07/10/2017 10:30 AM EST Anemia of chronic renal failure, stage 3 (moderate) documented in this encounter Results * (ABNORMAL) Basic Metabolic Panel (non-fasting) (07/10/2017 11:53 AM EST) Glucose 98 65 - 199 mg/dL [facility] Comment:Diabetes: >=200 mg/d L plus symptoms Blood Urea Nitrogen 32(H) 10 - 20 mg/dL [facility] Creatinine 1.48 0.80 - 1.50 mg/dL [facility] Sodium 140 135 - 145 mmol/L [facility] Potassium 4.3 3.5 - 5.0 mmol/L [facility] Comment: Please note: ??Patients with WBC >100,000 may have falsely elevated Potassium levels. ??For accurate Potassium quantification in these patients send serum separator tube (gold top) for subsequent determinations. ??Contact the Clinical Chemistry Laboratory if there are any questions. Chloride 102 98 - 107 mmol/L [facility] Carbon Dioxide 23 22 - 31 mmol/L [facility] Anion Gap 15 5 - 15 mmol/L [facility] Calcium 8.9 8.5 - 10.5 mg/dL [facility] Est Glomerular Filtration Rate 48(L) >=60 [facility] Comment: The reported eGFR should be multiplied by 1.2 for patients. The MDRD is not an appropriate measure of renal function for patients with body mass extremes or in patients with acute kidney failure. http://[employer]/DHnkdep http://emaze/DHMCnkf Blood specimen (specimen) 07/10/2017 11:53 AM EST 07/10/2017 11:59 AM EST Narrative Resulting Agency Comment Spec In Lab Jorge Gonzales MD CHEMISTRY ORDERABLE S Performing Organization Address City/[facility] Co de Phone Number [facility] [place] [address] * (ABNORMAL) Protein/Creatinine Ratio, urine (07/10/2017 10:30 AM EST) Creatinine, Urine 71 mg/dL [facility] Protein, Urine 139(H) 0 - 12 mg/dL [facility] Protein / Creatinine Ratio, Urine 2.0 ratio [facility] Urine specimen (specimen) 07/10/2017 10:30 AM EST 07/10/2017 1:12 PM EST Narrative Resulting Agency Comment Spec In Lab Jorge Gonzales MD URINE ORDERABLES Performing Organization Address [facility] Co de Phone Number [facility] [place] [address] documented in this encounter Visit Diagnoses Diagnosis Anemia of chronic renal failure, stage 3 (moderate) Sharma's esophagus with high grade dysplasia Sharma's esophagus documented in this encounter Care Teams Fern Picker Relationship Specialty Start Date End Date Jovani Wharton DO [address] [place] [address] PCP - General Family Medicine 10/18/16 06/18/22 documented as of this encounter
--- OUTSIDE RECORDS SUMMARY | 2024-02-18 09:35 | XMS_ITS | Encounter Summary ---
Author Organization [facility] Address [facility] [place] [address] Care Team Providers Care Port Traffic Manager Name Role Phone Jovani Wharton DO Primary Care Provider Reason for Visit * Reason Comments Skin Lesion * Consultation (Routine) - Closed Specialty Diagnoses / Procedures Referred By Devaughn bobo Referred To Contact Dermatology Diagnoses TINEA CORPORIS Jovani Wharton DO [address] [place] [address] [facility] Dermatology [address] [place] [address] Referral ID Status Reason Start Date Expiration Date V isits Requested Visits Authorized [id number] Closed Consult, Test & Treat Connection Center 04/18/2018 04/18/2019 1 1 Encounter Details Date Type Department Care Team (Late st Contact Info) Description 06/18/2018 3:00 PM EST Office Visit Dermatology at [facility] [address] [place] [address] Sharyn Shepherd MD [facility] [address] [place] [address] Candelaria Coleman PA [facility] [address] [place] [address] Nummular eczema Social History Tobacco [...] Elise Coleman) and documented with patient consent. LOS:[id number] RTC: PRN Note initiated by Michelle Guy [...] Reviewed and signed by Candelaria Coleman PA-C [facility] Patient seen in conjunction with staff production broacher: Sharyn Shepherd MD Section of Dermatology [facility] * Sharyn Shepherd MD - 06/18/2018 3:00 [...] by: SHARYN SHEPHERD MD Section of Dermatology [facility] documented in this encounter Plan of Treatment Upcoming Encounters Date Type Department Care Team (Latest Contact Info) Description 04/06/2024 9:30 AM EST Hospital Encounter Gastroenterology at [place] [phone] Lawrence Gar MD [facility] [place] [address] 04/06/2024 9:30 AM EST - 04/06/2024 10:00 AM EST [place] [phone] Lawrence Gar MD [facility] [place] [address] EGD, UPPER GI ENDOSCOPY (WRVU 2.09) 05/06/2024 9:00 AM EST Office Visit [place] [phone] Jovani Richardson MD [facility] [place] [address] A, Nurse Clinician None 11/17/2024 4:20 PM EDT Office [place] [phone] Lawrence Gar MD [facility] [place] [address] Scheduled Procedures Name Priority Associated Diagnoses Date/Ti fl EGD, UPPER GI ENDOSCOPY (WRVU 2.09) Sharma's esophagus with high grade dysplasia 04/06/2024 9:30 AM EST documented as of this encounter Visit Diagnoses Diagnosis Nummular eczema Contact dermatitis and other eczema, due to unspecified cause Sharma's esophagus with high grade dysplasia Sharma's esophagus documented in this encounter Care Teams Port Traffic Manager Relationship Specialty Start Date End Date Jovani Wharton DO [address] [place] [address] PCP - General Family Medicine 10/18/16 06/18/22 documented as of this encounter
--- OUTSIDE RECORDS SUMMARY | 2024-02-18 09:35 | XMS_ITS | Encounter Summary ---
Author Organization [facility] [place] [address] Care Team Providers Care Research Subject Name Role Phone Slade Tran MD Primary Care Provider [phone] Encounter Details Date Type Department Care Team (Late st Contact Info) Description 05/03/2004 Orders [place] [phone] Balbir Conroy MD [facility] [place] [address] Social History Tobacco Use Types Packs/Day Years Used Date Smoking Tobacco: Never Assessed Sex and Gender Information Value Date Recorded Sex Assigned at Not on file Gender Identity Not on file Sexual Orientation Not on file documented as of this encounter Plan of Treatment Upcoming Encounters Date Type Department Care Team (Latest Contact Info) Description 04/06/2024 9:30 AM EST Hospital Encounter [place] [phone] Lawrence Gar MD [facility] [place] [address] 04/06/2024 9:30 AM EST - 04/06/2024 10:00 AM EST [place] [phone] Lawrence Gar MD [facility] [place] [address] EGD, UPPER GI ENDOSCOPY (WRVU 2.09) 05/06/2024 9:00 AM EST Office Visit [place] [address] Jovani Richardson MD [facility] [place] [place] [address] A, Nurse Clinician None 11/17/2024 4:20 PM EDT Office [place] [phone] Lawrence Gar MD [facility] [place] [address] Scheduled Procedures Name Priority Associated Diagnoses Date/Ti me EGD, UPPER GI ENDOSCOPY (WRVU 2.09) Sharma's esophagus with high grade dysplasia 04/06/2024 9:30 AM EST documented as of this encounter Procedures Procedure Name Priority Date/Time Associated Diagnosis Comments SURGICAL PATHOLOGY REPORT Routine 05/03/2004 8:08 PM EST documented in this encounter Results * Surgical Pathology Report (05/03/2004 8:08 PM EST) Surgical Pathology Report [id number] ? Location: [facility]; [facility]; A The signing pathologist has (i) examined [...] in rendering the final pathologic diagnosis. [facility] SHOOK 05/03/2004 8:08 PM EST Balbir Conroy MD PATHOLOGY/CYTOLOGY ORDERABLES [facility] documented in this encounter Visit Diagnoses Not on filedocumented in this encounter Care Teams Research Subject Relationship Specialty Start Date End Date Slade Tran MD PCP - General Family Medicine 06/19/22 11/05/23 documented as of this encounter
--- OUTSIDE RECORDS SUMMARY | 2024-02-18 09:35 | XMS_ITS | Encounter Summary ---
Author Organization [facility] Address [facility] [place] [address] Care Team Providers Care Spaghetti Machine Operator Name Role Phone DioJovani franks Primary Care Provider [phone] Reason for Visit * Reason Comments Squamous Cell Carcinoma Encounter Details Date Type Department Care Team (Latest Contact Info) Description 07/06/2019 8:00 AM EST Procedure visit Dermatology at [address] [address] Dominguez Lopez MD [facility] [place] [address] Squamous cell carcinoma of skin of left [...] MD, PhD. Your wound(s) was repaired by [id number] stitches called a primary repair. You do [...] until your sutures are removed. 5. Some mortgage collector may need to be delayed or delegated [...] as often as is recommended by your warehouse manager, for new skin cancers. This is once [...] it. If after hours, please call the substation operator helper generation or [phone] and ask for the warehouse manager on-call. If you have any non-urgent questions or concerns, please feel free to call my office or contact me through our patient portal, [employer], at [email or web address] How to contact us during business hours Dermatology at [facility] [address]: Mohs scheduling or Mohs follow-up appointments: [phone] documented in this encounter Progress Notes * [...] and follow up with his or her warehouse manager or other skin provider. 6. Discussed avoiding [...] Reviewed and signed by: Dominguez Lopez Dermatology [facility] * Dominguez Lopez MD - 07/06/2019 8:00 AM EST Mohs micrographic Surgery Operative Report Patient name: Mathew Mendez : 1955 Date: 07/06/2019 Staff Surgeon: Dominguez Lopez MD PhD Nursing/Vehicle Operator(s): Mi Banda CMA, Patsy Chapman RN, Mary Naidu LPN, Serina Taylor CMA Strapper And Buffer (s): Donna Mays Pre-operative diagnosis: Squamous Cell [...] The site was confirmed with the patient/authorized surgical sales representative/referring physician and/or a photograph form [...] micrographic extirpation of tumor Indication: Repair with worship of anatomic structure and function Procedure Name: [...] Reviewed and signed by: Dominguez Lopez Dermatology [facility] documented in this encounter Plan of Treatment Upcoming Encounters Date Type Department Care Team (Latest Contact Info) Description 04/06/2024 9:30 AM EST Hospital En[place] [phone] Lawrence Gar MD [facility] [place] [address] 04/06/2024 9:30 AM EST - 04/06/2024 10:00 AM EST [place] [phone] Lawrence Gar MD [facility] [place] [address] EGD, UPPER GI ENDOSCOPY (WRVU 2.09) 05/06/2024 9:00 AM EST Office Visit [place] [phone] Jovani Richardson MD [facility] [place] [address] A, Nurse Clinician None 11/17/2024 4:20 PM EDT Office [place] [phone] Lawrence Gar MD [facility] [place] [address] Scheduled Procedures Name Priority Associated Diagnoses Date/Ti me EGD, UPPER GI ENDOSCOPY (WRVU 2.09) Sharma's esophagus with high grade dysplasia 04/06/2024 9:30 AM EST documented as of this encounter Visit Diagnoses Diagnosis 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
--- OUTSIDE RECORDS SUMMARY | 2024-02-18 09:35 | XMS_ITS | Encounter Summary ---
Author Organization [facility] Address [facility] [place] [address] Care Team Providers Care Sewer And Inspector Name Role Phone DioJovani franks Primary Care Provider [phone] Reason for Referral * Consultation (Routine) - Closed Specialty Diagnoses / Procedures Referred By Devaughn bobo Referred To Contact Dermatology Diagnoses SCC (squamous cell carcinoma) Deb Hamlin MD [facility] DR TOM FERNAN[place] [address] Dominguez Lopez MD [facility] DR TOM FERNAN[place] [address] Referral ID Status Reason Start Date Expiration Date V isits Requested Visits Authorized [id number] Closed Consult, Test & Treat 04/29/2020 04/29/2021 1 1 Encounter Details Date Type Department Care Team (Late st Contact Info) Description 04/29/2020 Orders Only Dermatology at [facility] [address] [place] [address] Deb Hamlin MD [facility] DR TOM FERNAN[place] [address] SCC (squamous cell carcinoma) Social History Tobacco [...] 9:30 AM EST Hospital Encounter [place] [address] Lawrence Gar MD [facility] [place] [address] 04/06/2024 9:30 AM EST - 04/06/2024 10:00 AM EST [place] [address] Lawrence Gar MD [facility] [place] [address] EGD, UPPER GI ENDOSCOPY (WRVU 2.09) 05/06/2024 9:00 AM EST Office Visit [place] [address] Jovani Richardson MD [facility] [place] [address] A, Nurse Clinician None 11/17/2024 4:20 PM EDT Office [place] [address] Lawrence Gar MD [facility] [place] [address] Scheduled Procedures Name Priority Associated Diagnoses Date/Ti [...] of skin, site unspecified Sharma's esophagus with high grade dysplasia Sharma's esophagus documented in this encounter Care Teams Sewer And Inspector Relationship Specialty Start Date End Date Jovani Wharton DO [address] [place] [address] PCP - General Family Medicine 10/18/16 06/18/22 documented as of this encounter
--- OUTSIDE RECORDS SUMMARY | 2024-02-18 09:35 | XMS_ITS | Encounter Summary ---
Author Organization [facility] Address [facility] [place] [address] Care Team Providers Care Broadcast Operations Manager Name Role Phone DioJovani franks Primary Care Provider Encounter Details Date Type Department Care Team (Late st Contact Info) Description 04/25/2020 10:30 AM EST Office Visit Dermatology at [facility] [address] [place] [address] Deb Hamlin MD [facility] [place] [address] Xerosis of skin; Neoplasm of uncertain behavior [...] a 65 y.o. male Last seen in [facility] Dermatology: 01/14/2020 Here for evaluation of a [...] and signed by: Deb Hamlin MD Dermatology [facility] * Deb Hamlin MD - 04/25/2020 [...] 9:30 AM EST Hospital Encounter [place] [address] Lawrence Gar MD [facility] [place] [address] 04/06/2024 9:30 AM EST - 04/06/2024 10:00 AM EST [place] [address] Lawrence Gar MD [facility] [place] [address] EGD, UPPER GI ENDOSCOPY (WRVU 2.09) 05/06/2024 9:00 AM EST Office Visit Nephrology Hypertension at [place] [phone] Jovani Richardson MD [facility] [place] [address] A, Nurse Clinician None 11/17/2024 4:20 PM EDT Office [place] [address] Lawrence Gar MD [facility] [place] [address] Scheduled Procedures Name Priority Associated Diagnoses Date/Ti ks EGD, UPPER GI ENDOSCOPY (WRVU 2.09) Sharma's [...] AM EST 04/25/2020 3:29 PM EST Narrative [facility] - 04/25/2020 3:29 PM EST Specimen requisition ordered. ??Separate Pathology report to follow Resulting Agency Comment Spec In Lab Deb Hamlin MD PATHOLOGY/CYTOLOGY O RDERABLES [facility] [place] [address] * Surgical Pathology Report (04/25/2020 11:32 AM EST) Final Diagnosis -[id number] ? Location: [facility] The signing pathologist has (i) examined the relevant preparation(s) for the specimen(s) and (ii) rendered or confirmed the diagnosis(es). . 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 of Pathology, [place], [place] SPECIMEN(S) SUBMITTED A - right mid [...] labeled A1-A2. ??pps 04/27/2020 2:41 PM EST [facility] SPECIMEN FROM SKIN / Unknown 04/25/2020 11:32 AM EST 04/25/2020 11:32 AM EST Deb Hamlin MD PATHOLOGY/CYTOLOGY O SONIYA [facility] [place] [address] documented in this encounter Visit Diagnoses Diagnosis Xerosis of skin Other specified disease of sebaceous glands Neoplasm of uncertain behavior Neoplasm of uncertain behavior, site unspecified Sharma's esophagus with high grade dysplasia Sharma's esophagus documented in this encounter Care Teams Broadcast Operations Manager Relationship Specialty Start Date End Date Jovani Wharton DO [address] [place] [address] PCP - General Family Medicine 10/18/16 06/18/22 documented as of this encounter
--- OUTSIDE RECORDS SUMMARY | 2024-02-18 09:35 | XMS_ITS | Encounter Summary ---
Author Organization [facility] Address [facility] [place] [address] Care Team Providers Care Clinical Care Coordinator Name Role Phone Jovani Wharton DO Primary Care Provider [phone] Reason for Visit * Consultation (Routine) - Specialty Diagnoses / Procedures Referred By Devaughn bobo Referred To Contact Dermatology Diagnoses Basal cell carcinoma Jovani Wharton DO [address] [place] [address] [facility] Dermatology [address] [place] [address] Referral ID Status Reason Start Date Expiration Date V isits Requested Visits Authorized [id number] Consult, Test & Treat PCP Updated and/or Approved 05/15/2019 11/14/2019 6 6 Encounter Details Date Type Department Care Team (Late st Contact Info) Description 05/25/2019 9:15 AM EST Office Visit Dermatology at [facility] [address] [place] [phone] Deb Hamlin MD [facility] DR T[place] [address] Neoplasm of uncertain behavior of skin; AK [...] 64 y.o. established patient. Last seen in [facility] Dermatology: 06/18/2018 Here today with the [...] and signed by: Deb Hamlin MD Dermatology [facility] * Deb Hamlin MD - [...] 9:30 AM EST Hospital En[place] [address] Lawrence Gar MD [facility] [place] [address] 04/06/2024 9:30 AM EST - 04/06/2024 10:00 AM EST [place] [phone] Lawrence Gar MD [facility] [place] [address] EGD, UPPER GI ENDOSCOPY (WRVU 2.09) 05/06/2024 9:00 AM EST Office Visit [place] [phone] Jovani Richardson MD [facility] [place] [address] A, Nurse Clinician None 11/17/2024 4:20 PM EDT Office [place] [address] Lawrence Gar MD [facility] [place] [address] Scheduled Procedures Name Priority Associated Diagnoses Date/Ti [...] Surgical Pathology Report (05/25/2019 9:57 AM EST) Final Diagnosis [id number] ? Location: [facility] The signing pathologist has (i) examined the relevant preparation(s) for the specimen(s) and (ii) rendered or confirmed the diagnosis(es). . ?Surgical Pathology DIAGNOSIS A. Skin, left earlobe, shave biopsy: - ??Invasive squamous cell carcinoma, well to moderately differentiated, present at the peripheral and deep specimen edges Electronically signed by: ??Anthony HENDRICKS, PhD, Bob Verified: ??05/26/2019 ?Dermatopathol ogist Performed at: ??-[facility] Dept. of Pathology, [place], [place] CLINICAL INFORMATION Specimen Submitted: A - Skin, left earlobe, shave biopsy ONLY (1) Clinical History and Diagnosis: 6 mm firm pink tender nodule, SCC versus less likely BCC versus AFX SPECIMEN PROCESSING A - Labeled/Fixativ e: Left ear lobe, formalin. Quantity/Size: ??Single, single 0.7 x 0.5 x 0.4 cm. Tissue Description: [place]-white granular skin shave. Sections/Proces sing: Inked, bisected and entirely submitted in 1 cassette labeled A1. ??MLL 05/26/2019 11:45 AM EST [facility] SPECIMEN FROM SKIN / Unknown 05/25/2019 9:57 AM EST 05/25/2019 9:57 AM EST Deb Hamlin MD PATHOLOGY/CYTOLOGY O RDERAXIN [facility] [place] [address] * Specimen to Pathology (05/25/2019 9:57 AM EST) AP Specimen 05/25/2019 9:57 AM EST 05/25/2019 2:59 PM EST Narrative [facility] - 05/25/2019 3:00 PM EST Specimen requisition ordered. ??Separate Pathology report to follow Resulting Agency Comment Spec In Lab Deb Hamlin MD PATHOLOGY/CYTOLOGY O RDERABLES [facility] [place] [address] documented in this encounter Visit Diagnoses Diagnosis Neoplasm of uncertain behavior of skin [place] (actinic keratosis) Actinic keratosis Sharma's esophagus with high grade dysplasia Sharma's esophagus documented in this encounter Care Teams Clinical Care Coordinator Relationship Specialty Start Date End Date Jovani Wharton DO [address] [place] [address] PCP - General Family Medicine 10/18/16 06/18/22 documented as of this encounter
--- OUTSIDE RECORDS SUMMARY | 2024-02-18 09:35 | XMS_ITS | Encounter Summary ---
Author Organization [facility] Address [facility] [place] [address] Care Team Providers Care After School Program Director Name Role Phone DioJovani franks Primary Care Provider Encounter Details Date Type Department Care Team (Latest Contact Info) Description 10/18/2016 8:30 AM EDT Office Visit [place] [address] Jorge Gonzales MD [facility] [place] [address] CKD (chronic kidney disease) stage 3, GFR [...] 9:30 AM EST Hospital En[place] [address] Lawrence Gar MD [facility] [place] [address] 04/06/2024 9:30 AM EST - 04/06/2024 10:00 AM EST [place] [address] Lawrence Gar MD [facility] [place] [address] EGD, UPPER GI ENDOSCOPY (WRVU 2.09) 05/06/2024 9:00 AM EST Office Visit [place] [address] Jovani Richardson MD [facility] [place] [address] A, Nurse Clinician None 11/17/2024 4:20 PM EDT [facility] [place] [address] Lawrence Gar MD [facility] [place] [address] Scheduled Procedures Name Priority Associated Diagnoses Date/Ti [...] 3, GFR 30-59 ml/min BASIC METABOLIC PANEL STAT 10/18/2016 9:55 AM EDT CKD (chronic kidney disease) stage 3, GFR 30-59 ml/min PROTEIN/CREATININE RATIO, URINE Routine 10/18/2016 8:26 AM EDT CKD (chronic kidney disease) stage 3, GFR 30-59 ml/min PROTEIN ELECTROPHORESIS, URINE, RANDOM Routine 10/18/2016 8:26 AM EDT CKD (chronic kidney disease) stage 3, GFR 30-59 ml/min documented in this encounter Results * (ABNORMAL) Differential, Automated (10/18/2016 9:55 AM EDT) Neutrophil % 65.3 % [facility] Neutrophil Absolute 2.98 1.70 - 6.10 x10(3)/[facility] Lymph % 17.9 % [facility] Lymphocytes Abs 0.8(L) 0.9 - 3.2 x10(3)/[facility] Monocyte % 12.0 % [facility] Monocyte Abs 0.6 0.3 - 0.9 x10(3)/[facility] Eos % 3.5 % [facility] Eosinophils Abs 0.2 0.0 - 0.4 x10(3)/[facility] Basophil % 1.1 % [facility] Baso Absolute 0.0 0.0 - 0.1 x10(3)/[facility] Immature Gran % 0.20 % [facility] Comment: Immature granulocytes(IG's)percentage and absolute count will include metamyelocytes, myelocytes, and promyelocytes. Blood smears from CBCs yielding IG's will be scanned manually for concordance. If this scan disagrees with the automated IG or if promyelocytes are noted, a manual differential will be performed. Immature Gran Absolute 0.01 0.00 - 0.04 x10(3)/[facility] Blood specimen (specimen) 10/18/2016 9:55 AM EDT 10/18/2016 10:07 AM EDT Narrative Resulting Agency Comment Spec In Lab Jorge Gonzales MD HEMATOLOGY ORDERABL ES [facility] [place] [address] * (ABNORMAL) Hemogram (10/18/2016 9:55 AM EDT) White Blood Cell 4.6 4.0 - 9.5 x10(3)/[facility] Red Blood Cell 3.78(L) 4.58 - 5.54 x10(6)/mc L [facility] Hemoglobin 11.7(L) 13.7 - 16.5 gm/dL [facility] Hematocrit 34.0(L) 40.5 - 48.5 % [facility] Mean Cell Volume 89.9 82.9 - 93.1 fL [facility] Mean Cell Hemoglobin 31.0 27.5 - 32.1 pg [facility] Mean Cell Hemoglobin Concentration 34.4 32.0 - 35.7 gm/dL [facility] Platelet 192 145 - 357 x10(3)/mc L [facility] RDW Standard Deviation 40.0 36.0 - 45.0 [facility] RDW coefficient of variation 12.3 11.4 - 13.8 % [facility] Mean Platelet Volume 11.2 7.6 - 12.9 [facility] NRBC% auto 0.0 % [facility] NRBC Absolute 0.000 0.000 - 0.000 x10(3)/mc L [facility] Blood specimen (specimen) 10/18/2016 9:55 AM EDT 10/18/2016 10:07 AM EDT Narrative Resulting Agency Comment Spec In Lab Jorge Gonzales MD HEMATOLOGY ORDERABL ES Performing Organization Address City/[facility]/ZIP Co de Phone Number [facility] [place] [address] * PTH (10/18/2016 9:55 AM EDT) Parathyroid Hormone 51 15 - 65 pg/mL [facility] Blood specimen (specimen) 10/18/2016 9:55 AM EDT 10/18/2016 10:06 AM EDT Narrative Resulting Agency Comment Spec In Lab Jorge Gonzales MD CHEMISTRY ORDERABLE S Performing Organization Address City/[facility]/ZIP Co de Phone Number [facility] [place] [address] * Protein Electrophoresis, serum (10/18/2016 9:55 AM EDT) [facility] Total Prot Electrophoresis 7.0 6.1 - 8.0 gm/dL [facility] Albumin Electrophoresis 4.59 3.60 - 6.00 gm/dL [facility] Alpha 1 Globulin 0.18 0.10 - 0.30 gm/dL [facility] Alpha 2 Globulin 0.76 0.40 - 0.90 gm/dL [facility] Beta Globulin 0.69 0.50 - 1.00 gm/dL [facility] Gamma Globulin 0.78 0.50 - 1.30 gm/dL [facility] M1 Band None Detected [facility] Blood specimen (specimen) 10/18/2016 9:55 AM EDT 10/18/2016 10:07 AM EDT Narrative Resulting Agency Comment Spec In Lab Jorge Gonzales MD CHEMISTRY ORDERABLE S [facility] [place] [address] * (ABNORMAL) Basic Metabolic Panel (non-fasting) (10/18/2016 9:55 AM EDT) [facility] Glucose 90 65 - 199 mg/dL [facility] Comment:Diabetes: >=200 mg/d L plus symptoms Blood Urea Nitrogen 39(H) 10 - 20 mg/dL [facility] Creatinine 1.86(H) 0.80 - 1.50 mg/dL [facility] Comment: Please note that the pediatric reference intervals supplied above were not validated at [facility]. Results from pediatric patients should be interpreted in conjunction to the patient's age, height and muscle mass. Sodium 135 135 - 145 mmol/L [facility] Potassium 4.2 3.5 - 5.0 mmol/L [facility] Comment: Please note: ??Patients with WBC >100,000 may have falsely elevated Potassium levels. ??For accurate Potassium quantification in these patients send serum separator tube (gold top) for subsequent determinations. ??Contact the Clinical Chemistry Laboratory if there are any questions. Chloride 97(L) 98 - 107 mmol/L [facility] Carbon Dioxide 21(L) 22 - 31 mmol/L [facility] Anion Gap 17(H) 5 - 15 mmol/L [facility] Calcium 9.0 8.5 - 10.5 mg/dL [facility] Est Glomerular Filtration Rate 37(L) >=60 [facility] Comment: This estimated GFR (eGFR) [...] the following links into your internet browser. [email or web address] Blood specimen (specimen) 10/18/2016 9:55 AM EDT 10/18/2016 10:07 AM EDT Narrative Resulting Agency Comment Spec In Lab Jorge Gonzales MD CHEMISTRY ORDERABLE S [facility] [place] [address] * (ABNORMAL) Protein/Creatinine Ratio, urine (10/18/2016 8:26 AM EDT) Creatinine, Urine 70 mg/dL [facility] Protein, Urine 20(H) 0 - 12 mg/dL [facility] Protein / Creatinine Ratio, Urine 0.3 ratio [facility] Urine specimen (specimen) 10/18/2016 8:26 AM EDT 10/18/2016 11:35 AM EDT Narrative Resulting Agency Comment Spec In Lab Jorge Gonzales MD URINE ORDERABLES Performing Organization Address City/[facility] Co de Phone Number [facility] [place] [address] * (ABNORMAL) Protein Electrophoresis, urine, random (10/18/2016 8:26 AM EDT) Protein, Urine 20(H) 0 - 12 mg/dL [facility] U Albumin 76 % total [facility] Globulin, Urine 24 % total [facility] M1 Band, Urine None Detected [facility] UPEP Comments See Note [facility] Comment: There is no evidence of clonal free light chains in this patient's urine sample. Urine specimen (specimen) 10/18/2016 8:26 AM EDT 10/18/2016 11:35 AM EDT Narrative Resulting Agency Comment Spec In Lab Jorge Gonzales MD URINE ORDERABLES Performing Organization Address [facility] Co de Phone Number [facility] [place] [address] documented in this encounter Visit Diagnoses Diagnosis CKD (chronic kidney disease) stage 3, GFR 30-59 ml/min- Primary Chronic kidney disease, Stage III (moderate) Sharma's esophagus with high grade dysplasia Sharma's esophagus documented in this encounter Care Teams After School Program Director Relationship Specialty Start Date End Date Jovani Wharton DO [address] [place] [address] PCP - General Family Medicine 10/18/16 06/18/22 documented as of this encounter
--- OUTSIDE RECORDS SUMMARY | 2024-02-18 09:35 | XMS_ITS | Encounter Summary ---
Author Organization [facility] Address [facility] [place] [address] Care Team Providers Care Engagement Specialist Name Role Phone DioJovani franks Primary Care Provider Encounter Details Date Type Department Care Team (Late st Contact Info) Description 01/21/2020 Orders Only [place] [address] Jorge Gonzales MD [facility] [place] [address] CKD (chronic kidney disease) stage 2, GFR [...] 9:30 AM EST Hospital En[place] [address] Lawrence Gar MD [facility] [place] [address] 04/06/2024 9:30 AM EST - 04/06/2024 10:00 AM EST [place] [address] Lawrence Gar MD [facility] [place] [address] EGD, UPPER GI ENDOSCOPY (WRVU 2.09) 05/06/2024 9:00 AM EST Office Visit [place] [address] Jovani Richardson MD [facility] [place] [address] A, Nurse Clinician None 11/17/2024 4:20 PM EDT Office Visit Gastroenterology at [place] [phone] Lawrence Gar MD [facility] [place] [address] Scheduled Procedures Name Priority Associated Diagnoses Date/Ti me EGD, UPPER GI ENDOSCOPY (WRVU 2.09) Sharma's esophagus with high grade dysplasia 04/06/2024 9:30 AM EST documented as of this encounter Results * PTH (04/20/2020 5:20 PM EST) Parathyroid Hormone 51 15 - 65 pg/mL [facility] Blood specimen (specimen) 04/20/2020 5:20 PM EST 04/20/2020 5:27 PM EST Narrative Resulting Agency Comment Spec In Lab Jorge Gonzales MD CHEMISTRY ORDERABLE S [facility] [place] [address] * (ABNORMAL) Basic Metabolic Panel (non-fasting) (04/20/2020 5:20 PM EST) Glucose 117 65 - 199 mg/dL [facility] Comment:Diabetes: >=200 mg/d L plus symptoms Blood Urea Nitrogen 56(H) 10 - 20 mg/dL [facility] Creatinine 2.71(H) 0.80 - 1.50 mg/dL [facility] Sodium 140 135 - 145 mmol/L [facility] Potassium 4.5 3.5 - 5.0 mmol/L [facility] Comment: Please note: ??Patients with WBC >100,000 may have falsely elevated Potassium levels. ??For accurate Potassium quantification in these patients send serum separator tube (gold top) for subsequent determinations. ??Contact the Clinical Chemistry Laboratory if there are any questions. Chloride 107 98 - 107 mmol/L [facility] Carbon Dioxide 21(L) 22 - 31 mmol/L [facility] Anion Gap 12 5 - 15 mmol/L [facility] Calcium 9.7 8.5 - 10.5 mg/dL [facility] Est Glomerular Filtration Rate 23(L) >=60 mL/min/1. 73 m?? [facility] Comment: The eGFR was calculated using the CKD-EPI equation. As with all creatinine based estimates of kidney function, eGFR values calculated with the CKD-EPI equation are not accurate in patients with acute kidney failure, extremes of body mass or the acutely ill. http://[employer]/[facility] NORMANnkf eGFR 27(L) >=60 mL/min/1. 73 m?? [facility] Comment: The eGFR was calculated using the CKD-EPI equation. As with all creatinine based estimates of kidney function, eGFR values calculated with the CKD-EPI equation are not accurate in patients with acute kidney failure, extremes of body mass or the acutely ill. http://[employer]/DHnkf Blood specimen (specimen) 04/20/2020 5:20 PM EST 04/20/2020 5:27 PM EST Narrative Resulting Agency Comment Spec In Lab Jorge Gonzales MD CHEMISTRY ORDERABLE S [facility] [place] [address] * (ABNORMAL) Protein/Creatinine Ratio, urine (04/20/2020 4:30 PM EST) Creatinine, Urine 128 mg/dL [facility] Protein, Urine 110(H) 0 - 12 mg/dL [facility] Protein / Creatinine Ratio, Urine 0.9 ratio [facility] Urine specimen (specimen) 04/20/2020 4:30 PM EST 04/20/2020 5:12 PM EST Narrative Resulting Agency Comment Spec In Lab Jorge Gonzales MD URINE ORDERABLES [facility] [place] [address] documented in this encounter Visit Diagnoses Diagnosis CKD (chronic kidney disease) stage 2, GFR 60-89 ml/min Chronic kidney disease, Stage II (mild) Sharma's esophagus with high grade dysplasia Sharma's esophagus documented in this encounter Care Teams Engagement Specialist Relationship Specialty Start Date End Date Jovani Wharton DO [address] [place] [address] PCP - General Family Medicine 10/18/16 06/18/22 documented as of this encounter
--- OUTSIDE RECORDS SUMMARY | 2024-02-18 09:35 | XMS_ITS | Encounter Summary ---
[place] [address] Care Team Providers Care Building Components Designer Name Role Phone DioJovani franks Primary Care Provider Reason for Visit * Reason Onset Date Comments Pre Procedure Call 06/29/2019 Encounter Details Date Type Department Care Team (Late st Contact Info) Description 06/29/2019 Telephone Dermatology at [address] [address] Milvia Mancilla, RN Pre Procedure [...] 9:30 AM EST Hospital Encounter Gastroenterology at [place] [phone] Lawrence Gar MD [facility] [place] [address] 04/06/2024 9:30 AM EST - 04/06/2024 10:00 AM EST Surgery Gastroenterology at [place] [phone] Lawrence Gar MD [facility] [place] [address] EGD, UPPER GI ENDOSCOPY (WRVU 2.09) 05/06/2024 9:00 AM EST Office Visit Nephrology [place] [phone] Jovani Richardson MD [facility] [place] [address] A, Nurse Clinician None 11/17/2024 4:20 PM EDT Office Visit [place] [address] Lawrence Gar MD [facility] [place] [address] Scheduled Procedures Name Priority Associated Diagnoses Date/Ti me EGD, UPPER GI ENDOSCOPY (WRVU 2.09) Sharma's esophagus with high grade dysplasia 04/06/2024 9:30 AM EST documented as of this encounter Visit Diagnoses Not on filedocumented in this encounter Care Teams Building Components Designer Relationship Specialty Start Date End Date Jovani Wharton DO [address] [place] [address] PCP - General Family Medicine 10/18/16 06/18/22 documented as of this encounter
--- OUTSIDE RECORDS SUMMARY | 2024-02-18 09:35 | XMS_ITS | Encounter Summary ---
Author Organization [facility] Address [facility] [place] [address] Care Team Providers Care Drilling Machine Operator Name Role Phone DioJovani franks Primary Care Provider Reason for Visit * Reason Comments Skin Check Encounter Details Date Type Department Care Team (Late st Contact Info) Description 07/13/2019 11:15 AM EST Office Visit Dermatology at [address] [address] Deb [place] MD [facility] [place] [address] Actinic keratoses; Actinic skin damage; History of [...] ?? Other No ? 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 Medications: allopurinoL, amLODIPine, [...] defined scaly pink papules on the right [facility] x 3, right mid superior helix x [...] and signed by: Deb [place] MD Dermatology [facility] documented in this encounter Plan of Treatment Upcoming Encounters Date Type Department Care Team (Latest Contact Info) Description 04/06/2024 9:30 AM EST Hospital En[place] [phone] Lawrence Gar MD [facility] [place] [address] 04/06/2024 9:30 AM EST - 04/06/2024 10:00 AM EST [place] [phone] Lawrence Gar MD [facility] [place] [address] EGD, UPPER GI ENDOSCOPY (WRVU 2.09) 05/06/2024 9:00 AM EST Office Visit [place] [phone] Jovani Richardson MD [facility] [place] [address] A, Nurse Clinician None 11/17/2024 4:20 PM EDT Office [place] [address] Lawrence Gar MD [facility] [place] [address] Scheduled Procedures Name Priority Associated Diagnoses Date/Ti [...] esophagus documented in this encounter Care Teams Drilling Machine Operator Relationship Specialty Start Date End Date Jovani Wharton DO [address] [place] [address] PCP - General Family Medicine 10/18/16 06/18/22 documented as of this encounter
--- OUTSIDE RECORDS SUMMARY | 2024-02-18 09:35 | XMS_ITS | Encounter Summary ---
Author Organization [facility] [place] [address] Care Team Providers Care Pump Operator Name Role Phone Slade Tran MD Primary Care Provider [phone] Encounter Details Date Type Department Care Team (Late st Contact Info) Description 08/04/2003 Orders Only [place] [phone] Balbir Conroy MD [facility] [place] [address] Social History Tobacco Use Types Packs/Day Years Used Date Smoking Tobacco: Never Assessed Sex and Gender Information Value Date Recorded Sex Assigned at Not on file Gender Identity Not on file Sexual Orientation Not on file documented as of this encounter Plan of Treatment Upcoming Encounters Date Type Department Care Team (Latest Contact Info) Description 04/06/2024 9:30 AM EST Hospital Encounter [place] [phone] Lawrence Gar MD [facility] [place] [address] 04/06/2024 9:30 AM EST - 04/06/2024 10:00 AM EST [place] [phone] Lawrence Gar MD [facility] [place] [address] EGD, UPPER GI ENDOSCOPY (WRVU 2.09) 05/06/2024 9:00 AM EST Office Visit [place] [address] Jovani Richardson MD [facility] [place] [address] A, Nurse Clinician None 11/17/2024 4:20 PM EDT Office Visit Gastroenterology at [place] [phone] Lawrence Gar MD [facility] [place] [address] Scheduled Procedures Name Priority Associated Diagnoses Date/Ti me EGD, UPPER GI ENDOSCOPY (WRVU 2.09) Sharma's esophagus with high grade dysplasia 04/06/2024 9:30 AM EST documented as of this encounter Procedures Procedure Name Priority Date/Time Associated Diagnosis Comments SURGICAL PATHOLOGY REPORT Routine 08/05/2003 3:31 PM EST documented in this encounter Results * Surgical Pathology Report (08/05/2003 3:31 PM EST) Surgical Pathology Report [id number] ? Location: [facility]; [facility]; A The signing pathologist has (i) examined [...] perforation ?is identified grossly. Sections/Processing : ??(1-2) sales donor recruitment representative terminal margin; ?(3-4) mucosa to hemorrhagic [...] the ?area of perforation. Sections/Processing : ??(1-2) sales donor recruitment representative section of terminal ?margins; (3) perforation; [...] resection margins are histologically viable. CR-0 08/10/03 [facility] 08/10/03 Verified by: ? Bertin Matta MD, PhD ?Pathologist ?(Electronic Signature) The attending pathologist whose signature appears on this report has reviewed all diagnostic slides and has edited the gross and/or microscopic portion of the report in rendering the final pathologic diagnosis. [facility] 08/05/2003 3:31 PM EST Balbir Conroy MD PATHOLOGY/CYTOLOGY ORDERABLES Performing Organization Address City/State/[facility] Phone Number [facility] documented in this encounter Visit Diagnoses Not on filedocumented in this encounter Care Teams Pump Operator Relationship Specialty Start Date End Date Slade Tran MD PCP - General Family Medicine 06/19/22 11/05/23 documented as of this encounter
--- OUTSIDE RECORDS SUMMARY | 2024-02-18 09:35 | XMS_ITS | Encounter Summary ---
Author Organization [facility] [place] [address] Care Team Providers Care Material Damage Appraiser Name Role Phone DioJovani franks Primary Care Provider Encounter Details Date Type Department Care Team (Late st Contact Info) Description 07/11/2018 Telephone Nephrology [place] [phone] Nehal Ortiz Social History Tobacco Use Types [...] 9:30 AM EST Hospital Encounter [place] [phone] Lawrence Gar MD [facility] [place] [address] 04/06/2024 9:30 AM EST - 04/06/2024 10:00 AM EST Surgery [place] [address] Lawrence Gar MD [facility] [place] [address] EGD, UPPER GI ENDOSCOPY (WRVU 2.09) 05/06/2024 9:00 AM EST Office Visit Neph[place] [address] Jovani Richardson MD [facility] [place] [address] A, Nurse Clinician None 11/17/2024 4:20 PM EDT Office Visit [place] [address] Lawrence Gar MD [facility] [place] [address] Scheduled Procedures Name Priority Associated Diagnoses Date/Ti me EGD, UPPER GI ENDOSCOPY (WRVU 2.09) Sharma's esophagus with high grade dysplasia 04/06/2024 9:30 AM EST documented as of this encounter Visit Diagnoses Not on filedocumented in this encounter Care Teams Material Damage Appraiser Relationship Specialty Start Date End Date Jovani Wharton DO [address] [place] [address] PCP - General Family Medicine 10/18/16 06/18/22 documented as of this encounter
[2024-02-18 15:47] LABS: Abs Immature Grans 0.02 10^3/uL (0.0-0.06); Absolute Basophil Count 0.06 10^3/uL (0.0-0.2); Absolute Eosinophil Count 0.44 10^3/uL (0.0-0.7); Absolute Lymphocyte Count 0.94 10^3/uL (1.2-3.4); Absolute Monocyte Count 0.48 10^3/uL (0.1-0.8); Absolute Neutrophil Count 3.74 10^3/uL (1.2-6.7); Basophils % 1.1 %; Eosinophils % 7.7 %; HCT 31.3 % (40.0-50.0); HGB 10.4 g/dL (13.5-17.5); Immature Grans % 0.4 %; Lymphocytes % 16.5 %; MCHC 33.2 % (32.0-36.0); MCV 93 fL (80-95); MPV 11.7 fL (8.0-11.0); Monocytes % 8.5 %; Neutrophils % 65.8 %; Platelet Count 182 10^3/uL (130-400); RBC 3.35 10^6/uL (4.36-5.78); RDW 13.2 % (11.8-14.1); RDW-SD 45.5 fL; WBC 5.68 10^3/uL (4.4-10.8)
[2024-02-18 16:11] LABS: Albumin 3.6 g/dL (3.4-5.0); Calcium 8.7 mg/dL (8.5-10.1); PHOSPHORUS 6.3 mg/dL (2.6-4.7)
[2024-02-18 16:48] LABS: Vitamin D 25 Total 14.1 ng/mL (30-100)
[2024-02-18 23:22] LABS: Parathyroid Hormone,Intact 248 pg/mL (19-88)
== END 2024-02-18 09:16 | disposition home or self-care (01) ==
LOC: NCHCN 09:15
PROVIDERS: PCP Student in an Organized Health Care Education/Training Program; Visit Provider Student in an Organized Health Care Education/Training Program
DX: N25.81 Secondary hyperparathyroidism of renal origin (principal)
CPT/HCPCS: 82306; 82040; 82310; 83970; 84100; 85025

== ENCOUNTER 2024-03-12 00:59 | Outpatient (CLI) | payer MEDICARE, SELFPAY ==
--- NOTE | 2024-03-12 07:30 | DI.US_ITS ---
APPROVED REPORT EXAM: Comprehensive 2D, Doppler, and color-flow Echocardiogram Patient Location: Out-Patient Senior Trainer: Madhavi Jonas RDCS (AE) Indications: Cardiac Murmur Other Information Study Quality: Adequate Conclusion Normal left ventricular wall thickness and chamber size. Ejection fraction is 60%. Wall motion is n ormal Normal right ventricular size and function Both atria are normal in size Aortic valve is trileaflet with trace regurgitation Mild mitral and tricuspid regurgitation Estimated right ventricular systolic pressure is 41 mmHg Ascending aorta measures 3.51 cm Wall motion Left Ventricle The left ventricle is normal size. The left ventricular systolic function is normal. The left ventric ular ejection fraction is within the normal range. There is normal left ventricular wall thickness. T here is normal LV segmental wall motion. There is no ventricular septal defect visualized. LVEF is 6 0%. Right Ventricle The right ventricle is normal size. The right ventricular systolic function is normal. Atria The left atrium size is normal. The right atrium size is normal. The interatrial septum is intact wit h no evidence for an atrial septal defect. Aortic Valve The aortic valve is normal in structure. There is no aortic valvular stenosis. Trace aortic regurgit ation. Mitral Valve The mitral valve is normal in structure. No evidence of mitral valve stenosis. Mild mitral regurgita tion. Tricuspid Valve The tricuspid valve is normal in structure. There is no tricuspid valve stenosis. Mild tricuspid regu rgitation. The RVSP is 40.7 mmHg. Pulmonic Valve The pulmonary valve is normal in structure. There is no pulmonic valvular stenosis. Trace pulmonic re gurgitation. Great Vessels The aortic root is normal in size. The ascending aorta is mildly dilated. Aortic arch is not well vis ualized. IVC is normal in size and collapses >50% with inspiration. Pericardium There is no pericardial effusion. 2D Dimensions IVSD d PLAX 0.80 cm M: 0.6-1.2 Ao Root d 3.25 cm M: 3.1 - 3.7 LVPW d PLAX 0.81 cm M: 0.6 - 1.2 Ao Asc Diam d 3.51 cm M: 2.6 - 3.4 LVID d PLAX 4.00 cm M: 4.2 - 5.8 LVDs 2.74 cm M: 2.5 - 4.0 LV EF Teichholz 59.1 % FS 30.90 % LV EDV (Teich) 68.8 mL LV ESV (Teich) 28.1 mL M-Mode TAPSE 2.65 cm (M/F) >1.7 Auto EF LV EDV A4C 87.3 mL LV EDV A2C 136.0 mL LV EDV BP 108.4 mL LV ESV A4C 34.8 mL LV ESV A2C 54.0 mL LV ESV BP 44.0 mL LVEF(%) A4C 60.1 % LVEF(%) A2C 60.2 % LVEF(%) BP 59.5 % LV SV A4C 52.5 ml LV SV A2C 81.9 ml LV SV BP 64.5 ml LV CO A4C 3.4 L/min LV CO A2C 5.2 L/min LV CO BP 4.3 L/min HR A4C 63.94 BPM HR A2C 63.94 BPM LV EDV Index (BP) LA Volume LA Length A4C 5.5 cm LA Length A2C 6.5 cm LA Area A4C s 16.92 cm2 LA Area A2C s 25.16 cm2 LA Vol A4C A-L 44.43 mL LA Vol A2C A-L 82.26 mL LA Vol Biplane A-L 66.1 mL LA Vol/BSA A4C A-L LA Vol/BSA A2C A-L LA Vol/BSA BP A-L 37.1 mL/m2 LA Vol A4C MOD 41.9 mL LA Vol A2C MOD 77.7 mL LA Vol BP MOD 62.1 mL RA Volume RA Area A4C 16.0 cm2 RA ESV A4C (A-L) 45.2mL RA Vol/BSA A4C A-L RA Length A4C 4.8 cm RA ESV A4C (MOD) 42.0mL LV Diastology MV E' medial 0.087 (>0.07 m/s) MV E Vmax 0.90 (0.4-1.3 m/s) MV E/E' MED 10.35 (<14) MV A Vmax 1.10 (0.4-1.3 m/s) MV E' lateral 0.118 (>0.1 m/s) E/A Ratio 0.8 MV E/E' LAT 7.62 (<14) MV E' Average 0.103 m/s MV E/E'(average) 8.77 Aortic Valve AoV Vmax 1.75 m/s LVOT Vmax 1.37 m/s AoV Peak Grad 12.3 mmHg LVOT Peak Grad 7.5 mmHg AoV Area (Vmax) 2.20 cm2 LVOT VTI 0.298 m AoV VTI 0.404 m LVOT Mean Grad 4.1 mmHg AoV Mean Faheem. 1.18 m/s LVOT SV 84.10 mL AoV Mean Grad 6.3 mmHg LVOT Diam s 1.85 cm AoV Area (VTI) 2.08 cm2 AV Regurg Peak Gr. 12.28 mmHg Velocity Ratio 0.78 Mitral Valve MV DT 232 (160-240 msec) MV Vmax TIPS 1.00 m/s MV Mean Grad 1.8 (<2mmHg) MV VTI 0.323 m Pulmonary Valve PV Vmax 1.15 (0.5-1.5 m/s) RVOT Vmax 0.83 m/s PV Peak Grad 5.3 mmHg RVOT Peak Gr. 2.7 mmHg PV Mean Faheem 0.76 m/s RVOT VTI 0.195 m PV Mean Grad 2.7 mmHg RVOT Mean Gr. 1.4 mmHg Tricuspid Valve RA Pressure 3.00 mmHg TR Vmax 3.07 m/s TV S' 0.16 m/s TR Peak Grad 37.7 mmHg RVSP (TR) 40.7 mmHg
== END 2024-03-12 01:19 ==
LOC: DI 01:00
PROVIDERS: PCP Student in an Organized Health Care Education/Training Program; Visit Provider Student in an Organized Health Care Education/Training Program
DX: R01.1 Cardiac murmur, unspecified (principal)
CPT/HCPCS: 93306

== ENCOUNTER 2024-04-30 03:25 | Outpatient (CLI) | payer MEDICARE, SELFPAY ==
[2024-04-30 07:52] LABS: Abs Immature Grans 0.03 10^3/uL (0.0-0.06); Absolute Basophil Count 0.06 10^3/uL (0.0-0.2); Absolute Eosinophil Count 0.34 10^3/uL (0.0-0.7); Absolute Lymphocyte Count 0.74 10^3/uL (1.2-3.4); Absolute Monocyte Count 0.59 10^3/uL (0.1-0.8); Absolute Neutrophil Count 3.81 10^3/uL (1.2-6.7); Basophils % 1.1 %; Eosinophils % 6.1 %; HCT 30.3 % (40.0-50.0); Immature Grans % 0.5 %; Lymphocytes % 13.3 %; MCH 31.8 pg (27.0-33.0); MCV 97 fL (80-95); MPV 10.1 fL (8.0-11.0); Monocytes % 10.6 %; Neutrophils % 68.4 %; Platelet Count 190 10^3/uL (130-400); RBC 3.14 10^6/uL (4.36-5.78); RDW 13.6 % (11.8-14.1); RDW-SD 48.4 fL; WBC 5.57 10^3/uL (4.4-10.8)
[2024-04-30 08:04] LABS: COMMENT (LAB VIEW ONLY) 27.87 mg/dL; PROTEIN 141.2 mg/dL; Prot/Crea Ur Ratio 5.06
[2024-04-30 08:21] LABS: Albumin 3.7 g/dL (3.4-5.0); Anion Gap 12.3 mmol/L (3-11); CO2 24.7 mmol/L (21.0-32.0); Calcium 8.6 mg/dL (8.5-10.1); Chloride 102 mmol/L (98-107); Ferritin 194 ng/mL (26-388); Glucose 109 mg/dL (74-106); Potassium 5.4 mmol/L (3.5-5.1); Sodium 139 mmol/L (136-145)
[2024-04-30 08:30] LABS: BUN 84 mg/dL (7-18)
[2024-04-30 08:31] LABS: CREATININE 5.4 mg/dL (0.70-1.30)
[2024-04-30 08:34] LABS: Iron 56 ug/dL (65-175); Total Iron Binding Capacity 298 ug/dL (250-450); Transferrin Sat 19 % (20-55)
== END 2024-04-30 03:26 | disposition home or self-care (01) ==
LOC: LBO 03:25
PROVIDERS: PCP Student in an Organized Health Care Education/Training Program; Visit Provider Internal Medicine Nephrology
DX: N18.5 Chronic kidney disease, stage 5 (principal); I10 Essential (primary) hypertension
CPT/HCPCS: 36415; 80048; 82040; 82565; 82728; 83540; 83550; 84100; 84156; 85025

== ENCOUNTER 2024-06-08 12:38 | Outpatient (CLI) | payer MEDICARE, SELFPAY ==
[2024-06-08 11:06] LABS: Abs Immature Grans 0.02 10^3/uL (0.0-0.06); Absolute Basophil Count 0.04 10^3/uL (0.0-0.2); Absolute Eosinophil Count 0.12 10^3/uL (0.0-0.7); Absolute Lymphocyte Count 0.52 10^3/uL (1.2-3.4); Absolute Monocyte Count 0.61 10^3/uL (0.1-0.8); Absolute Neutrophil Count 3.38 10^3/uL (1.2-6.7); Basophils % 0.9 %; Eosinophils % 2.6 %; HCT 25.2 % (40.0-50.0); HGB 8.2 g/dL (13.5-17.5); Immature Grans % 0.4 %; Lymphocytes % 11.1 %; MCH 31.8 pg (27.0-33.0); MCHC 32.5 % (32.0-36.0); MCV 98 fL (80-95); MPV 9.9 fL (8.0-11.0); Platelet Count 219 10^3/uL (130-400); RBC 2.58 10^6/uL (4.36-5.78); RDW 12.9 % (11.8-14.1); RDW-SD 45.9 fL; WBC 4.69 10^3/uL (4.4-10.8)
[2024-06-08 11:21] LABS: Albumin 3.1 g/dL (3.4-5.0); Anion Gap 15.4 mmol/L (3-11); CO2 20.6 mmol/L (21.0-32.0); Calcium 8.5 mg/dL (8.5-10.1); Chloride 109 mmol/L (98-107); Estimated GFR 8.73 (mL/min/1.73m2); Glucose 86 mg/dL (74-106); Potassium 4.9 mmol/L (3.5-5.1); Sodium 145 mmol/L (136-145)
[2024-06-08 11:26] LABS: BUN 98 mg/dL (7-18); CREATININE 6.4 mg/dL (0.70-1.30)
--- OUTSIDE RECORDS SUMMARY | 2024-06-08 12:42 | XMS_ITS | Encounter Summary ---
Author Organization [facility] Address [address] [place] [address] Care Team Providers Care Presentation Team Member Name Role Phone Slade Tran MD Primary Care Provider [phone] Encounter Details Date Type Department Care Team (Late st Contact Info) Description 09/23/2023 Lab Requisition [facility] Pathology & Laboratory Medicine - [facility] [address], [place] [address] Outr Resulting Lab, Provider Social History Tobacco [...] Recorded Sex Assigned at Not on file Legal Sex Male 18:42 EST Gender Identity Male 10/18/2021 9:41 EDT Sexual Orientation Not on file documented as of this encounter Functional Status * Are you deaf or do you have serious difficulty hearing? Answer Date of Assessment Author Yes 07/31/2021 20:00 EST Cedrick Sanon, LOYD * Are you blind or do you have serious difficulty seeing, even when wearing glasses? Answer Date of Assessment Author No 10/25/2021 16:00 EDT Becky Levy RN * Do you have serious difficulty walking or climbing stairs? (5 years old or older) Answer Date of Assessment Author No 10/25/2021 16:00 EDT Becky Levy RN * Do you have difficulty dressing or bathing? (5 years old or older) Answer Date of Assessment Author No 10/25/2021 16:00 EDT Becky Levy RN * Because of a physical, mental, or emotional condition, do you have difficulty doing errands alone such as visiting a doctor's office or shopping? (15 years old or older) Answer Date of Assessment Author No 10/25/2021 16:00 EDT Becky Levy RN documented as of this encounter Mental Status * Because of a physical, mental, or emotional condition, do you have serious difficulty concentrating, remembering, or making decisions? (5 years old or older) Answer Entry Date Author No 10/25/2021 16:00 EDT Becky Levy RN documented in this encounter Plan of [...] Albumin, Urine % 69.2 N/A % 09/24/19 15:06 [facility] Albumin, Urine mg/dL 191 mg/dL 09/24/2023 15:06 [facility] Globulins, Urine % 30.8 N/A % 09/24/2023 15:06 [facility] Globulins, Urine mg/dL 85 mg/dL 09/24/2023 15:06 [facility] UPEP Comment See Comment 09/24/2023 15:06 [facility] Comment:Electrophoresis scre ening performed; Immunotyping to follow. ??See scanned/supplementary report. Immunotyping, Urine Current Interpretatio n: Negative for free monoclonal light chains. Reviewed by: Ortega Prado MD 09/24/2023 1351 09/24/2023 15:06 EDT [facility] Total Protein, Urine 276 See Note mg/dL 09/24/2023 15:06 EDT [facility] Comment: NOTE: Reference range has not been established for total protein concentration in random urine specimens. Urine URINE / Unknown 09/23/2023 1 2:58 EDT 09/23/2023 21:05 EDT us Provider Outr Resulting Lab URINALYSIS ORDERABLE S Final Result Performing Organization Address City/[facility]/ZIP Co de Phone Number [facility] [address] [place] [address] * PROTEIN, TOTAL, RANDOM, URINE (09/23/2023 12:58 EDT) Urine URINE / Unknown 09/23/2023 1 2:58 EDT 09/23/2023 21:05 EDT us Provider Outr Resulting Lab URINALYSIS ORDERABLE S Final Result Performing Organization Address [facility]/ZIP Co de Phone Number [facility] [address] [place] [address] documented in this encounter Visit Diagnoses Not on filedocumented in this encounter Care Teams Presentation Team Member Relationship Specialty Start Date End Date Slade [place] [address] PCP - General 11/12/22 documented as of this encounter
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
--- OUTSIDE RECORDS SUMMARY | 2024-06-08 12:42 | XMS_ITS | Referral Summary ---
Author Organization [facility] Address [address] [place] [address] Care Team Providers Care Explosive Man Name Role Phone Slade Tran MD Primary Care Provider [phone] Allergies Active Allergy Reactions Criticality Noted Date Comments Morphine Hives 07/31/2021 itchy Tramadol Nausea And Vomiting 10/25/2021 Medications allopurinoL (ZYLOPRIM) 100 mg tablet Take 100 mg by mouth daily. Active metoprolol TARtrate (LOPRESSOR) 25 mg tablet Take 0.5 Tablets by mouth 2 times daily. 30 Tablet 4 08/12/19 Active lisinopriL (PRINIVIL) 5 mg tablet Take [...] every 4 hours as needed for Pain. 10/27/19 Active HYDROmorphone (DILAUDID) 2 mg tablet Take 1 Tablet by mouth every 6 hours as needed for Pain. Daily Max: 8 mg 10 Tablet 10/27/19 Active Additional Information Patient not taking.Reported on 11/12/2022 HYDROmorphone (DILAUDID) 2 mg tablet Take 1 Tablet by mouth every 8 hours as needed for Pain. Daily Max: 6 mg 10 Tablet 10/28/19 Active Additional Information Patient not taking.Reported on 11/12/2022 ondansetron (ZOFRAN-ODT) 4 mg disintegrating tablet Take 1 Tablet by mouth every 8 hours as needed for Nausea. 15 Tablet 2 11/24/19 Active Additional Information Patient not taking.Reported on 08/02/2022 ergocalciferol, vitamin D2, (VITAMIN D2 ORAL) Take by mouth. Active CALCITRIOL ORAL Take by mouth. Active MULTIVITAMIN ORAL Take by mouth. Active Active Problems Problem Noted Date Diagnosed [...] Index 26.29 11/12/2022 1141 EDT Functional Status * Are you deaf or do you have serious difficulty hearing? Answer Date of Assessment Author Yes 07/31/2021 20:00 Cedrick Sellers RN * Are you blind or do you [...] No 10/25/2021 16:00 EDT Becky Levy RN Mental Status * Because of a physical, mental, or emotional condition, do you have serious difficulty concentrating, remembering, or making decisions? (5 years old or older) Answer Entry Date Author No 10/25/2021 16:00 Becky Langford RN Plan of Treatment Not on file Medical Devices Implanted Type Area Craft Center Director Device Identifier Shelf Expiration Date Model / Serial / Lot Mesh Hernia 4 X 8cm [employer] Core Permanent - [id number] Implanted:Qty: 1 on 10/25/2021 by Ollie Lee MD at [facility] Mesh N/A: Esophagus [employer] 06/26/2023 [id number] / / [id number] Procedures Procedure Name Priority Date/Time Associated Diagnosis Comments HEPATITIS C AB W REFLEX TO HCV RNA BY PCR Routine 10/20/2021 16:02 EDT from Last 3 Months or Most Recently Relevant to Health Maintenance Results * HEPATITIS C AB W REFLEX TO HCV RNA BY PCR (10/20/2021 16:02 EDT) Hep C Antibody Negative Negative 10/23/2021 10:57 EDT [facility] Blood VENOUS BLOOD / Unknown 10/20/2021 16:02 EDT 10/21/2021 22:12 EDT us Provider Outr Resulting Lab CHEMISTRY & BLOOD GA S ORDERABLES Final Result [facility] [address] [place] [address] from Last 3 Months or Most Recently Relevant to Health Maintenance Insurance [place] [address] [id number] Advance Directives For more information, please contact: [phone] Documents on File Type Date Recorded Patient Recording Studio Intern Expl anation Advance Directive 08/16/2021 7:52 [...] Made the Decision? Default/Not Discussed Care Teams Explosive Man Relationship Specialty Start Date End Date Slade Tran MD Scot [facility] [place] [id number] PCP - General 11/12/22
--- OUTSIDE RECORDS SUMMARY | 2024-06-08 12:42 | XMS_ITS | Encounter Summary ---
Author Organization [facility] Address [address] [place] [address] Care Team Providers Care Leasing Consultant Name Role Phone Slade Tran MD Primary Care Provider [phone] Reason for Visit * Reason Comments Follow-up Ugi same day Encounter Details Date Type Department Care Team (Late st Contact Info) Description 11/12/2022 11:40 EDT Office Visit [facility] General Surgery - [address] [id number] Ollie Lee MD [address] [place] [address], [address] [place] [address] Paraesophageal hiatal hernia (Primary Dx) [...] EDT documented in this encounter Functional Status * Are you deaf or do you have serious difficulty hearing? Answer Date of Assessment Author Yes 07/31/2021 20:00 EST Cedrick Sanon RN * Are you blind or do [...] Becky Levy RN documented in this encounter Progress Notes * Abril Shabazz MA - 11/12/2022 1140 EDT [facility] General Surgery Services Patient Name: Mathew [...] that was done for a gastropexy in [place] just before being transferred to our institution [...] Some of this note was transcribed with [employer] dictating software. While it was proofread, it may still contain unnoticed grammatical or word errors due to incorrect transcribing. CC: Primary Care Provider: Slade Tran MD documented in this encounter Plan of Treatment Not on file documented as of this encounter Visit Diagnoses Diagnosis Paraesophageal hiatal hernia- Primary Diaphragmatic hernia without mention of obstruction or gangrene documented in this encounter Care Teams Leasing Consultant Relationship Specialty Start Date End Date Slade Tran MD [address] [place] [address] [place] [address] PCP - General 11/12/22 documented as of this encounter
--- OUTSIDE RECORDS SUMMARY | 2024-06-08 12:42 | XMS_ITS | Encounter Summary ---
Author Organization [facility] Address [address] [place] [address] Care Team Providers Care Home Companion Name Role Phone Slade Tran MD Primary Care Provider [phone] Encounter Details Date Type Department Care Team (Late st Contact Info) Description 04/02/2023 Lab Requisition [facility] Pathology & Laboratory Medicine - [facility] [address] [place], [place] [id number] Outr Resulting Lab, Provider Social History Tobacco [...] Date of Assessment Author No 10/25/2021 16:00 EDBecky Mccoy RN * Do you have difficulty dressing or bathing? (5 years old or older) Answer Date of Assessment Author No 10/25/2021 16:00 Becky Langford RN * Because of a physical, mental, or emotional condition, do you have difficulty doing errands alone such as visiting a doctor's office or shopping? (15 years old or older) Answer Date of Assessment Author No 10/25/2021 16:00 Becky Langford RN documented as of this encounter Mental Status * Because of a physical, mental, or emotional condition, do you have serious difficulty concentrating, remembering, or making decisions? (5 years old or older) Answer Entry Date Author No 10/25/2021 16:00 Becky Langford RN documented in this encounter Plan of Treatment Not on file documented as of this encounter Procedures Procedure Name Priority Date/Time Associated Diagnosis Comments PTH INTACT Routine 04/02/2023 9:10 EST documented in this encounter Results * (ABNORMAL) PTH INTACT (04/02/2023 9:10 EST) Intact PTH 160(H) 19 - 88 pg/mL 04/02/2023 19:37 EST [facility] Blood VENOUS BLOOD / Unknown 04/02/2023 9:10 EST 04/02/2023 17:52 EST us Provider Outr Resulting Lab CHEMISTRY & BLOOD GA S ORDERABLES Final Result [facility] [address] [place] [address] documented in this encounter Visit Diagnoses Not on filedocumented in this encounter Care Teams Home Companion Relationship Specialty Start Date End Date Slade Tran MD [address] [place] [address] PCP - General 11/12/22 documented as of this encounter
--- OUTSIDE RECORDS SUMMARY | 2024-06-08 12:42 | XMS_ITS | Encounter Summary ---
Author Organization [facility] Address [address] [place] [address] Care Team Providers Care Pipe Jeeper Name Role Phone Slade Tran MD Primary Care Provider [phone] Encounter Details Date Type Department Care Team (Late st Contact Info) Description 02/18/[address] [facility] Pathology & Laboratory Medicine - [facility] [address], [place] [id number] Outr Resulting Lab, Provider Social History Tobacco [...] Date/Time Associated Diagnosis Comments PTH INTACT Routine 02/18/2024 8:25 EDT documented in this encounter Results * (ABNORMAL) PTH INTACT (02/18/2024 8:25 EDT) Intact PTH 248(H) 19 - 88 pg/mL 02/18/2024 23:18 EDT [facility] Blood VENOUS BLOOD / Unknown 02/18/2024 8:25 EDT 02/18/2024 22:23 EDT us Provider Outr Resulting Lab CHEMISTRY & BLOOD GA S ORDERABLES Final Result [facility] [address] [place] [address] documented in this encounter Visit Diagnoses Not on filedocumented in this encounter Care Teams Pipe Jeeper Relationship Specialty Start Date End Date Slade Tran [place] [place] [address] PCP - General 11/12/22 documented as of this encounter
--- OUTSIDE RECORDS SUMMARY | 2024-06-08 12:42 | XMS_ITS | Data Portability ---
Author Organization [facility] Address [address] [place] [address] Care Team Providers Care Run Lead Name Role Phone CHARLOTTE MENDES Primary Care Provider AURORA Bernal Representative Government Relations CONNIE GAR Circus Supervisor Assessment Encounter Date Assessment Date Assessment LastModified by Organization Details LastModified Time 10/25/2023 10/25/2023 The total time devoted to today's encounter, including both the igbj-jo-drps time with the patient and/or family/caregiv er and has-gkxj-ib-fa ce time I personally spent is 45 minutes. Not available 10/25/2023 08:56:22 02/18/2024 02/18/2024 Due for Annual after 04/29/2023 New systolic murmer, possibly MVR, ordering echo given pt. note about fatigue in last 1-2 years and negative stress test. [email or web address] Not available 02/18/2024 15:13:20 05/28/2024 05/28/2024 Up to date on screenings. Pt to check if Adv Dir exists/review/ or create one. Nephrology notes and Gastro notes reviewed. We will f/u in 6-mos and order appropriate labs at that time. [email or web address] Not available 05/28/2024 11:27:28 Plan of Treatment Reminders Order Date Submit Date Provider Last Modified By Organization Details Last Modified Time Details Appointments Follow Up 30 2024 08:00A Jodi Mendes Not available Not available Not available Lab vitamin D, 25-hydrox y, total, serum 05/2023 024 [facility]ly [facility], [facility]1983 Primary Outpatient Lab, [address] [place], [id number], 11/06/2023 03:15:29 phosphoru s, serum or plasma 2023 Formerly [facility], [facility] Primary Outpatient Lab, [address] [place], [id number], 11/06/2023 03:15:29 PTH (parathyr oid hormone), intact, serum or plasma 2023 024 [facility]ly [facility], [facility] Primary Outpatient Lab, [address] [place], [id number], 11/06/2023 03:15:29 iron + TIBC + ferritin, serum 2023 024 [facility]ly [facility], [facility] Primary Outpatient Lab, [address] [place], [id number], 11/06/2023 03:15:29 CBC w/ auto diff 2023 024 [facility] Primary Outpatient Lab, [address] [place], [id number], 04/30/2024 07:55:30 albumin, serum or plasma - 1 [place], 1 LAV 2023 024 [email or web address] (Registration ), [address] [place] [address] [place], [address], 02/25/2024 09:44:33 calcium + phosphate , serum 2023 024 [email or web address] (Registration ), [address] [place] [address] [place], [address], 02/25/2024 09:44:47 PTH (parathyr oid hormone), intact, serum or plasma 2023 024 [facility] (Registration ), [address] [place] [address] [place], [address], 02/19/2024 09:25:59 vitamin D, 25-hydrox y, total, serum 2023 024 [facility] (Registration ), [address] [place] [address] [place], [address], 02/18/2024 16:51:04 CBC w/ auto diff 2023 024 [facility] (Registration ), [address] [place] [address] [place], [address], 02/18/2024 16:01:47 Referral None recorded. Procedures None recorded. Surgeries None recorded. Imaging US, echocardi ogram, transthor acic, complete, w/ color flow - Pt, with new systolic murmur at L-axillar y border, increased fatigue through, had stress test last year in relation to this, but no echo at time as no murmur noted/fou nd by prior provider. 2023 024 [email or web address], [address], [place], [address], 02/20/2024 08:03:40 Medication Orders None recorded. Patient TargetsNo targets recorded. Patient Instructions Encounter Date Encounter Id Patient Instructions Last Modified By Organization Details Last Modified Time 10/02/2023 [id number] 1. It does seem we have gotten [...] coming Saturday. [email or web address] Not available 10/02/2023 16:24:56 02/18/2024 [id number] Take some BP readings twice daily maybe at lunch before you eat and then closer to bedtime for 5 days and send BP data over to the office. Consider raising Lisinopril if necessary to 25 or 30 mg or consult with Nephrology. [email or web address] Not available 02/18/2024 15:12:13 05/28/2024 [id number] Check with if Advanced Directive exists and review. [email or web address] Not available 05/28/2024 10:20:36 Discussed and explained advance directives such as standard forms to the {{patient* caregi yamilet patient and caregiver}}. Face to face discussion lasted for a duration of _2_ minutes. He does have one he believes, he will check with , review if still valid and get us a copy. [email or web address] Not available 05/28/2024 10:19:28 Reason for Referral None Reported. Results Created Date Observation Date Name Description Value Unit Range Abnormal Flag Note LastModifiedBy Organization Detail LastModifiedTime 09/11/1909/11/2023 BASIC METAB OLIC PANEL calcium 8.3 mg/dL 8.5-10 .1 low Not Available [address] [place], [address] 09/11/2023 14:23:23 09/11/19 24 09/11/2023 BASIC METAB OLIC PANEL glucose 97 mg/dL 74-106 normal Not Available Mickie goldberg [address] [place], [address] 09/11/2023 14:23:23 09/11/19 24 09/11/2023 BASIC METAB OLIC PANEL BUN 68 mg/dL 7-18 high Not Available Mickie goldberg [address] [place], [address] 09/11/2023 14:23:23 09/11/19 24 09/11/2023 BASIC METAB OLIC PANEL creatinine 3.9 mg/dL 0.70-1 .30 panic high Criti lakshmi value repor iliana to and readb ack from ANNABELLA BARBOSA,RN [place] [place]at 1414 09/10 by LAB.G ROYCE Not Available [address] [place], [address] 09/11/2023 14:23:23 09/11/19 24 09/11/2023 BASIC METAB OLIC PANEL estimated GFR 15.91 mL/min /1.73m 2 The eGFR is calcu lated from a serum creat inine using the CKD-E PI 2020 equat ion. Other varia bles requi red for the equat ion are gende r and age; this equat ion does not inclu de a race coeff icien t. This equat ion has simil ar overa ll perfo rmanc e to previ ous equat ions excep t value s may diffe r, in parti cular , in patie nts with highe r value s of eGFR and young er-ag ed adult s. Not Available [address] [place], [address] 09/11/2023 14:23:23 09/11/19 24 09/11/2023 BASIC METAB OLIC PANEL sodium 140 mmol/ L 136-14 5 normal Not Available [address] [place], [address] 09/11/2023 14:23:23 09/11/19 24 09/11/2023 BASIC METAB OLIC PANEL potassium 5.7 mmol/ L 3.5-5. 1 high Not Available [address] [place], [address] 09/11/2023 14:23:23 09/11/19 24 09/11/2023 BASIC METAB OLIC PANEL chloride 108 mmol/ L 98-107 high Not Available [address] [place], [address] 09/11/2023 14:23:23 09/11/19 24 09/11/2023 BASIC METAB OLIC PANEL CO2 16.0 mmol/ L 21.0-3 2.0 low Not Available [address] [place], [address] 09/11/2023 14:23:23 09/11/19 24 09/11/2023 BASIC METAB OLIC PANEL anion gap 16.0 mmol/ L 3-11 high Not Available [address] [place], [address] 09/11/2023 14:23:23 09/18/19 24 09/18/2023 BASIC METAB OLIC PANEL calcium 8.5 mg/dL 8.5-10 .1 normal Not Available [address] [place], [address] 09/18/2023 15:47:16 09/18/19 24 09/18/2023 BASIC METAB OLIC PANEL glucose 79 mg/dL 74-106 normal Not Available Mickie goldberg [address] [place], [address] 09/18/2023 15:47:16 09/18/19 24 09/18/2023 BASIC METAB OLIC PANEL BUN 58 mg/dL 7-18 high Not Available Mickie goldberg [address] [place], [address] 09/18/2023 15:47:16 09/18/1909/18/2023 BASIC METAB OLIC PANEL creatinine 3.9 mg/dL 0.70-1 .30 panic high Criti lakshmi value repor iliana to and readb ack from VIK SOSA (RN), [facility] 1537 09/17 by LAB.I CAITLIN Not Available [address] [place], [address] 09/18/2023 15:47:16 09/18/19 24 09/18/2023 BASIC METAB OLIC PANEL estimated GFR 15.91 mL/min /1.73m 2 The eGFR is calcu lated from a serum creat inine using the CKD-E PI 2020 equat ion. Other varia bles requi red for the equat ion are gende r and age; this equat ion does not inclu de a race coeff icien t. This equat ion has simil ar overa ll perfo rmanc e to previ ous equat ions excep t value s may diffe r, in parti cular , in patie nts with highe r value s of eGFR and young er-ag ed adult s. Not Available [address] [facility] [place], [address] 09/18/2023 15:47:16 09/18/19 24 09/18/2023 BASIC METAB OLIC PANEL sodium 141 mmol/ L 136-14 5 normal Not Available [address] [place], [address] 09/18/2023 15:47:16 09/18/19 24 09/18/2023 BASIC METAB OLIC PANEL potassium 4.9 mmol/ L 3.5-5. 1 normal Not Available [address] [place], [address] 09/18/2023 15:47:16 09/18/19 24 09/18/2023 BASIC METAB OLIC PANEL chloride 110 mmol/ L 98-107 high Not Available [address] [place], [address] 09/18/2023 15:47:16 09/18/1909/18/2023 BASIC METAB OLIC PANEL CO2 14.0 mmol/ L 21.0-3 2.0 low Not Available [address] [place], [address] 09/18/2023 15:47:16 09/18/1909/18/2023 BASIC METAB OLIC PANEL anion gap 17.0 mmol/ L 3-11 high Not Available [address] [place], [address] 09/18/2023 15:47:16 09/18/1909/18/2023 BASIC METAB OLIC PANEL calcium 8.5 mg/dL 8.5-10 .1 normal Not Available [address] [place], [address] 09/18/2023 16:37:25 09/18/19 24 09/18/2023 BASIC METAB OLIC PANEL glucose 79 mg/dL 74-106 normal Not Available Mickie goldberg [address] [place], [address] 09/18/2023 16:37:25 09/18/19 24 09/18/2023 BASIC METAB OLIC PANEL BUN 58 mg/dL 7-18 high Not Available Mickie goldberg [address] [place], [address] 09/18/2023 16:37:25 09/18/1909/18/2023 BASIC METAB OLIC PANEL creatinine 3.9 mg/dL 0.70-1 .30 panic high Criti lakshmi value repor iliana to and readb ack from VIK SOSA (RN), [facility] [place] 1537 09/17 by LAB.I CAITLIN Not Available [address] [place], [address] 09/18/2023 16:37:25 09/18/19 24 09/18/2023 BASIC METAB OLIC PANEL estimated GFR 15.91 mL/min /1.73m 2 The eGFR is calcu lated from a serum creat inine using the CKD-E PI 2020 equat ion. Other varia bles requi red for the equat ion are gende r and age; this equat ion does not inclu de a race coeff icien t. This equat ion has simil ar overa ll perfo rmanc e to previ ous equat ions excep t value s may diffe r, in parti cular , in patie nts with highe r value s of eGFR and young er-ag ed adult s. Not Available [address] [place], [address] 09/18/2023 16:37:25 09/18/19 24 09/18/2023 BASIC METAB OLIC PANEL sodium 141 mmol/ L 136-14 5 normal Not Available [address] [place], [address] 09/18/2023 16:37:25 09/18/19 24 09/18/2023 BASIC METAB OLIC PANEL potassium 4.9 mmol/ L 3.5-5. 1 normal Not Available [address] [place], [address] 09/18/2023 16:37:25 09/18/19 24 09/18/2023 BASIC METAB OLIC PANEL chloride 110 mmol/ L 98-107 high Not Available [address] [place], [address] 09/18/2023 16:37:25 09/18/19 24 09/18/2023 BASIC METAB OLIC PANEL CO2 14.0 mmol/ L 21.0-3 2.0 low Not Available [address] [place], [address] 09/18/2023 16:37:25 09/18/19 24 09/18/2023 BASIC METAB OLIC PANEL anion gap 17.0 mmol/ L 3-11 high Not Available [address] [place], [address] 09/18/2023 16:37:25 09/23/19 24 09/23/2023 BASIC METAB OLIC PANEL calcium 7.9 mg/dL 8.5-10 .1 low Not Available [address] [place], [address] 09/23/2023 13:37:02 09/23/19 24 09/23/2023 BASIC METAB OLIC PANEL glucose 166 mg/dL 74-106 high Not Available Mickie goldberg [address] [place], [address] 09/23/2023 13:37:02 09/23/19 24 09/23/2023 BASIC METAB OLIC PANEL BUN 47 mg/dL 7-18 high Not Available Mickie goldberg [address] [place], [address] 09/23/2023 13:37:02 09/23/19 24 09/23/2023 BASIC METAB OLIC PANEL creatinine 3.5 mg/dL 0.70-1 .30 high Not Available [address] [place], [address] 09/23/2023 13:37:02 09/23/19 24 09/23/2023 BASIC METAB OLIC PANEL estimated GFR 18.12 mL/min /1.73m 2 The eGFR is calcu lated from a serum creat inine using the CKD-E PI 2020 equat ion. Other varia bles requi red for the equat ion are gende r and age; this equat ion does not inclu de a race coeff icien t. This equat ion has simil ar overa ll perfo rmanc e to previ ous equat ions excep t value s may diffe r, in parti cular , in patie nts with highe r value s of eGFR and young er-ag ed adult s. Not Available [address] [place], [address] 09/23/2023 13:37:02 09/23/19 24 09/23/2023 BASIC METAB OLIC PANEL sodium 141 mmol/ L 136-14 5 normal Not Available [address] [place], [address] 09/23/2023 13:37:02 09/23/19 24 09/23/2023 BASIC METAB OLIC PANEL potassium 4.8 mmol/ L 3.5-5. 1 normal Not Available [address] [place], [address] 09/23/2023 13:37:02 09/23/19 24 09/23/2023 BASIC METAB OLIC PANEL chloride 106 mmol/ L 98-107 normal Not Available [address] [place], [address] 09/23/2023 13:37:02 09/23/19 24 09/23/2023 BASIC METAB OLIC PANEL CO2 22.6 mmol/ L 21.0-3 2.0 normal Not Available [address] [place], [address] 09/23/2023 13:37:02 09/23/19 24 09/23/2023 BASIC METAB OLIC PANEL anion gap 12.4 mmol/ L 3-11 high Not Available [address] [place], [address] 09/23/2023 13:37:02 09/23/19 24 09/24/2023 IMMUN OGLOB ULINS IGA,I GG,IG M IgG 671 mg/dL 610-16 16 Not Available [address] [place], [address] 09/24/2023 13:13:47 09/23/19 24 09/24/2023 IMMUN OGLOB ULINS IGA,I GG,IG M IgA 144 mg/dL 85-499 Not Available Mickie goldberg [address] [place], [address] 09/24/2023 13:13:47 09/23/19 24 09/24/2023 IMMUN OGLOB ULINS IGA,I GG,IG M IgM 120 mg/dL 35-242 Test perfo rmed or refer red by [facility] [address] [place] [address] Not Available [address] [place], [address] 09/24/2023 13:13:47 09/23/19 24 09/24/2023 IMMUN OGLOB ULINS IGA,I GG,IG M IgG 671 mg/dL 610-16 16 Not Available [address] [place], [address] 09/24/2023 16:47:49 09/23/19 24 09/24/2023 IMMUN OGLOB ULINS IGA,I GG,IG M IgA 144 mg/dL 85-499 Not Available Mickie goldberg [address] [place], [address] 09/24/2023 16:47:49 09/23/19 24 09/24/2023 IMMUN OGLOB ULINS IGA,I GG,IG M IgM 120 mg/dL 35-242 Test perfo rmed or refer red by [facility] [address], [place] [address] Not Available [address] [place], [address] 09/24/2023 16:47:49 09/23/19 24 09/24/2023 ELECT ROPHO RESIS , SERUM total protein 6.6 g/dL 6.3-8. 2 Not Available [address] [place], [address] 09/24/2023 16:47:50 09/23/19 24 09/24/2023 ELECT ROPHO RESIS , SERUM albumin 61.9 % 55.8-6 6.1 Not Available [address] [place], [address] 09/24/2023 16:47:50 09/23/19 24 09/24/2023 ELECT ROPHO RESIS , SERUM alpha 1 4.5 % 2.9-4. 9 Not Available [address] [place], [address] 09/24/2023 16:47:50 09/23/19 24 09/24/2023 ELECT ROPHO RESIS , SERUM alpha 2 12.3 % 7.1-11 .8 abnormal Not Available [address] [place], [address] 09/24/2023 16:47:50 09/23/19 24 09/24/2023 ELECT ROPHO RESIS , SERUM beta 10.3 % 8.4-13 .1 Not Available [address] [place], [address] 09/24/2023 16:47:50 09/23/19 24 09/24/2023 ELECT ROPHO RESIS , SERUM gamma 11.0 % 11.1-1 8.8 abnormal Not Available [address] [place], [address] 09/24/2023 16:47:50 09/23/19 24 09/24/2023 ELECT ROPHO RESIS , SERUM comment SEE BELOW RESUL T: No appar ent monoc lonal prote in seen on serum elect ropho resis See scann ed/nuno pplem entar y repor t. Test perfo rmed or refer red by [facility] [address] [place] [address] Not Available [address] [place], [address] 09/24/2023 16:47:50 09/23/19 24 09/24/2023 ELECT ROPHO RESIS , SERUM albumin g/dL 4.1 g/dL 3.6-5. 2 Not Available [address] [place], [address] 09/24/2023 16:47:50 09/23/19 24 09/24/2023 ELECT ROPHO RESIS , SERUM alpha 1 g/dL 0.30 g/dL 0.15-0 .40 Not Available [address] [place], [address] 09/24/2023 16:47:50 09/23/19 24 09/24/2023 ELECT ROPHO RESIS , SERUM alpha 2 g/dL 0.80 g/dL 0.50-1 .00 Not Available [address] [place], [address] 09/24/2023 16:47:50 09/23/19 24 09/24/2023 ELECT ROPHO RESIS , SERUM beta g/dL 0.70 g/dL 0.60-1 .20 Not Available [address] [place], [address] 09/24/2023 16:47:50 09/23/19 24 09/24/2023 ELECT ROPHO RESIS , SERUM gamma g/dL 0.70 g/dL 0.60-1 .60 Not Available [address] [place], [address] 09/24/2023 16:47:50 09/23/19 24 09/24/2023 MONOC LONAL STUDY , URINE RANDO M total protein urine 276 mg/dL see note NOTE: Refer ence range has not been estab lishe d for total prote in dionne ntrat ion in rando m urine speci mens. Not Available [address] [place], [address] 09/24/2023 16:47:52 09/23/19 24 09/24/2023 MONOC LONAL STUDY , URINE RANDO M albumin, urine % 69.2 % n/a Not Available [address] [place], [address] 09/24/2023 16:47:52 09/23/19 24 09/24/2023 MONOC LONAL STUDY , URINE RANDO M globulins, urine % 30.8 % n/a Not Available [address] [place], [address] 09/24/2023 16:47:52 09/23/19 24 09/24/2023 MONOC LONAL STUDY , URINE RANDO M albumin, urine mg/dL 191 mg/dL Not Available [address] [place], [address] 09/24/2023 16:47:52 09/23/19 24 09/24/2023 MONOC LONAL STUDY , URINE RANDO M globulins, urine mg/dL 85 mg/dL Not Available [address] [place], [address] 09/24/2023 16:47:52 09/23/19 24 09/24/2023 MONOC LONAL STUDY , URINE RANDO M comment See Commen t Elect ropho flynn scree marina perfo rmed; Immun otypi ng to follo w. See scann ed/nuno pplem entar y repor t. Not Available [address] [place], [address] 09/24/2023 16:47:52 09/23/19 24 09/24/2023 MONOC LONAL STUDY , URINE RANDO M immunotyping , urine (See Note) Resul t: Curre nt Inter preta tion: Negat therese for free monoc lonal light chain s. Revie wed by: Ramona Mills rn, MD 09/23 1351 Test perfo rmed or refer red by [facility] [address] [place] [address] Not Available [address] [place], [address] 09/24/2023 16:47:52 09/23/19 24 09/23/2023 BASIC METAB OLIC PANEL calcium 7.9 mg/dL 8.5-10 .1 low Not Available [address] [place], [address] 09/25/2023 04:11:30 09/23/19 24 09/23/2023 BASIC METAB OLIC PANEL glucose 166 mg/dL 74-106 high Not Available Mickie goldberg [address] [place], [address] 09/25/2023 04:11:30 09/23/19 24 09/23/2023 BASIC METAB OLIC PANEL BUN 47 mg/dL 7-18 high Not Available Mickie goldberg [address] [place], [address] 09/25/2023 04:11:30 09/23/19 24 09/23/2023 BASIC METAB OLIC PANEL creatinine 3.5 mg/dL 0.70-1 .30 high Not Available [address] [place], [address] 09/25/2023 04:11:30 09/23/19 24 09/23/2023 BASIC METAB OLIC PANEL estimated GFR 18.12 mL/min /1.73m 2 The eGFR is calcu lated from a serum creat inine using the CKD-E PI 2020 equat ion. Other varia bles requi red for the equat ion are gende r and age; this equat ion does not inclu de a race coeff icien t. This equat ion has simil ar overa ll perfo rmanc e to previ ous equat ions excep t value s may diffe r, in parti cular , in patie nts with highe r value s of eGFR and young er-ag ed adult s. Not Available [address] [place], [address] 09/25/2023 04:11:30 09/23/19 24 09/23/2023 BASIC METAB OLIC PANEL sodium 141 mmol/ L 136-14 5 normal Not Available [address] [place], [address] 09/25/2023 04:11:30 09/23/19 24 09/23/2023 BASIC METAB OLIC PANEL potassium 4.8 mmol/ L 3.5-5. 1 normal Not Available [address] [place], [address] 09/25/2023 04:11:30 09/23/19 24 09/23/2023 BASIC METAB OLIC PANEL chloride 106 mmol/ L 98-107 normal Not Available [address] [place], [address] 09/25/2023 04:11:30 09/23/19 24 09/23/2023 BASIC METAB OLIC PANEL CO2 22.6 mmol/ L 21.0-3 2.0 normal Not Available [address] [place], [address] 09/25/2023 04:11:30 09/23/19 24 09/23/2023 BASIC METAB OLIC PANEL anion gap 12.4 mmol/ L 3-11 high Not Available [address] [place], [address] 09/25/2023 04:11:30 12/10/19 24 12/10/2023 BASIC METAB OLIC PANEL calcium 8.6 mg/dL 8.5-10 .1 normal Not Available [address] [place], [address] 12/10/2023 15:53:51 12/10/19 24 12/10/2023 BASIC METAB OLIC PANEL glucose 95 mg/dL 74-106 normal Not Available Mickie goldberg [address] [place], [address] 12/10/2023 15:53:51 12/10/19 24 12/10/2023 BASIC METAB OLIC PANEL BUN 61 mg/dL 7-18 high Not Available Mickie goldberg [address] [place], [address] 12/10/2023 15:53:51 12/10/19 24 12/10/2023 BASIC METAB OLIC PANEL creatinine 4.4 mg/dL 0.70-1 .30 panic high Criti lakshmi value repor iliana to and brennab ack from VIK LUND RN ([facility] at 1542 12/09 by LAB.L AUT Not Available [address] [place], [address] 12/10/2023 15:53:51 12/10/19 24 12/10/2023 BASIC METAB OLIC PANEL estimated GFR 13.77 mL/min /1.73m 2 The eGFR is calcu lated from a serum creat inine using the CKD-E PI 2020 equat ion. Other varia bles requi red for the equat ion are gende r and age; this equat ion does not inclu de a race coeff icien t. This equat ion has simil ar overa ll perfo rmanc e to previ ous equat ions excep t value s may diffe r, in parti cular , in patie nts with highe r value s of eGFR and young er-ag ed adult s. Not Available [address] [place], [address] 12/10/2023 15:53:51 12/10/19 24 12/10/2023 BASIC METAB OLIC PANEL sodium 142 mmol/ L 136-14 5 normal Not Available [address] [place], [address] 12/10/2023 15:53:51 12/10/19 24 12/10/2023 BASIC METAB OLIC PANEL potassium 5.1 mmol/ L 3.5-5. 1 normal Not Available [address] [place], [address] 12/10/2023 15:53:51 12/10/19 24 12/10/2023 BASIC METAB OLIC PANEL chloride 109 mmol/ L 98-107 high Not Available [address] [place], [address] 12/10/2023 15:53:51 12/10/19 24 12/10/2023 BASIC METAB OLIC PANEL CO2 19.3 mmol/ L 21.0-3 2.0 low Not Available [address] [place], [address] 12/10/2023 15:53:51 12/10/19 24 12/10/2023 BASIC METAB OLIC PANEL anion gap 13.7 mmol/ L 3-11 high Not Available [address] [place], [address] 12/10/2023 15:53:51 12/10/19 24 12/10/2023 BASIC METAB OLIC PANEL calcium 8.6 mg/dL 8.5-10 .1 normal Not Available [address] [place], [address] 12/10/2023 16:11:54 12/10/19 24 12/10/2023 BASIC METAB OLIC PANEL glucose 95 mg/dL 74-106 normal Not Available Mickie goldberg [address] [place], [address] 12/10/2023 16:11:54 12/10/1912/10/2023 BASIC METAB OLIC PANEL BUN 61 mg/dL 7-18 high Not Available Mickie goldberg [address] [place], [address] 12/10/2023 16:11:54 12/10/19 24 12/10/2023 BASIC METAB OLIC PANEL creatinine 4.4 mg/dL 0.70-1 .30 panic high Criti lakshmi value repor iliana to and readb ack from VIK LUND RN ([facility] [place] at 1542 12/09 by LAB.L AUT Not Available [address] [place], [address] 12/10/2023 16:11:54 12/10/19 24 12/10/2023 BASIC METAB OLIC PANEL estimated GFR 13.77 mL/min /1.73m 2 The eGFR is calcu lated from a serum creat inine using the CKD-E PI 2020 equat ion. Other varia bles requi red for the equat ion are gende r and age; this equat ion does not inclu de a race coeff icien t. This equat ion has simil ar overa ll perfo rmanc e to previ ous equat ions excep t value s may diffe r, in parti cular , in patie nts with highe r value s of eGFR and young er-ag ed adult s. Not Available [address] [place], [address] 12/10/2023 16:11:54 12/10/19 24 12/10/2023 BASIC METAB OLIC PANEL sodium 142 mmol/ L 136-14 5 normal Not Available [address] [place], [address] 12/10/2023 16:11:54 12/10/19 24 12/10/2023 BASIC METAB OLIC PANEL potassium 5.1 mmol/ L 3.5-5. 1 normal Not Available [address] [place], [address] 12/10/2023 16:11:54 12/10/19 24 12/10/2023 BASIC METAB OLIC PANEL chloride 109 mmol/ L 98-107 high Not Available [address] [place], [address] 12/10/2023 16:11:54 12/10/19 24 12/10/2023 BASIC METAB OLIC PANEL CO2 19.3 mmol/ L 21.0-3 2.0 low Not Available [address] [place], [address] 12/10/2023 16:11:54 12/10/19 24 12/10/2023 BASIC METAB OLIC PANEL anion gap 13.7 mmol/ L 3-11 high Not Available [address] [place], [address] 12/10/2023 16:11:54 12/20/19 24 12/20/2023 BASIC METAB OLIC PANEL calcium 8.0 mg/dL 8.5-10 .1 low Not Available [address] [place], [address] 12/20/2023 13:10:08 12/20/19 24 12/20/2023 BASIC METAB OLIC PANEL glucose 79 mg/dL 74-106 normal Not Available Mickie goldberg [address] [place], [address] 12/20/2023 13:10:08 12/20/19 24 12/20/2023 BASIC METAB OLIC PANEL BUN 58 mg/dL 7-18 high Not Available Mickie goldberg [address] [place], [address] 12/20/2023 13:10:08 12/20/19 24 12/20/2023 BASIC METAB OLIC PANEL creatinine 3.8 mg/dL 0.70-1 .30 panic high Criti lakshmi value CREAT ININE repor iliana to and readb ack from DOMINGO BAR[place]OS[place] [place]6 12/19 by LAB.B ONC Not Available [address] [place], [address] 12/20/2023 13:10:08 12/20/19 24 12/20/2023 BASIC METAB OLIC PANEL estimated GFR 16.42 mL/min /1.73m 2 The eGFR is calcu lated from a serum creat inine using the CKD-E PI 2020 equat ion. Other varia bles requi red for the equat ion are gende r and age; this equat ion does not inclu de a race coeff icien t. This equat ion has simil ar overa ll perfo rmanc e to previ ous equat ions excep t value s may diffe r, in parti cular , in patie nts with highe r value s of eGFR and young er-ag ed adult s. Not Available [address] [place], [address] 12/20/2023 13:10:08 12/20/19 24 12/20/2023 BASIC METAB OLIC PANEL sodium 137 mmol/ L 136-14 5 normal Not Available [address] [place], [address] 12/20/2023 13:10:08 12/20/19 24 12/20/2023 BASIC METAB OLIC PANEL potassium 5.1 mmol/ L 3.5-5. 1 normal Not Available [address] [place], [address] 12/20/2023 13:10:08 12/20/1912/20/2023 BASIC METAB OLIC PANEL chloride 102 mmol/ L 98-107 normal Not Available [address] [place], [address] 12/20/2023 13:10:08 12/20/19 24 12/20/2023 BASIC METAB OLIC PANEL CO2 24.6 mmol/ L 21.0-3 2.0 normal Not Available [address] [place], [address] 12/20/2023 13:10:08 12/20/1912/20/2023 BASIC METAB OLIC PANEL anion gap 10.4 mmol/ L 3-11 normal Not Available [address] [place], [address] 12/20/2023 13:10:08 02/18/2002/18/2024 COMPL ETE BLOOD COUNT W/DIF F WBC 5.68 10_3/ uL 4.4-10 .8 normal Not Available [address] [place], [address] 02/18/2024 16:01:47 02/18/20 24 02/18/2024 COMPL ETE BLOOD COUNT W/DIF F RBC 3.35 10_6/ uL 4.36-5 .78 low Not Available [address] [place], [address] 02/18/2024 16:01:47 02/18/20 24 02/18/2024 COMPL ETE BLOOD COUNT W/DIF F HGB 10.4 g/dL 13.5-1 7.5 low Not Available [address] [place], [address] 02/18/2024 16:01:47 02/18/20 24 02/18/2024 COMPL ETE BLOOD COUNT W/DIF F HCT 31.3 % 40.0-5 0.0 low Not Available [address] [place], [address] 02/18/2024 16:01:47 02/18/20 24 02/18/2024 COMPL ETE BLOOD COUNT W/DIF F MCV 93 fL 80-95 normal Not Available [address] [place], [address] 02/18/2024 16:01:47 02/18/20 24 02/18/2024 COMPL ETE BLOOD COUNT W/DIF F MCH 31.0 pg 27.0-3 3.0 normal Not Available [address] [place], [address] 02/18/2024 16:01:47 02/18/20 24 02/18/2024 COMPL ETE BLOOD COUNT W/DIF F MCHC 33.2 % 32.0-3 6.0 normal Not Available [address] [place], [address] 02/18/2024 16:01:47 02/18/20 24 02/18/2024 COMPL ETE BLOOD COUNT W/DIF F RDW 13.2 % 11.8-1 4.1 normal Not Available [address] [place], [address] 02/18/2024 16:01:47 02/18/20 24 02/18/2024 COMPL ETE BLOOD COUNT W/DIF F platelet count 182 10_3/ uL 130-40 0 normal Not Available [address] [place], [address] 02/18/2024 16:01:47 02/18/20 24 02/18/2024 COMPL ETE BLOOD COUNT W/DIF F MPV 11.7 fL 8.0-11 .0 high Not Available [address] [place], [address] 02/18/2024 16:01:47 02/18/20 24 02/18/2024 COMPL ETE BLOOD COUNT W/DIF F neutrophils % 65.8 % Not Available [address] [place], [address] 02/18/2024 16:01:47 02/18/20 24 02/18/2024 COMPL ETE BLOOD COUNT W/DIF F lymphocytes % 16.5 % Not Available [address] [place], [address] 02/18/2024 16:01:47 02/18/2002/18/2024 COMPL ETE BLOOD COUNT W/DIF F monocytes % 8.5 % Not Available [address] [place], [address] 02/18/2024 16:01:47 02/18/20 24 02/18/2024 COMPL ETE BLOOD COUNT W/DIF F eosinophils % 7.7 % Not Available [address] [place], [address] 02/18/2024 16:01:47 02/18/2002/18/2024 COMPL ETE BLOOD COUNT W/DIF F basophils % 1.1 % Not Available [address] [place], [address] 02/18/2024 16:01:47 02/18/20 24 02/18/2024 COMPL ETE BLOOD COUNT W/DIF F immature grans % 0.4 % Not Available [address] [place], [address] 02/18/2024 16:01:47 02/18/20 24 02/18/2024 COMPL ETE BLOOD COUNT W/DIF F nucleated RBC 0.0 % 0.0-0. 3 normal Not Available [address] [place], [address] 02/18/2024 16:01:47 02/18/20 24 02/18/2024 COMPL ETE BLOOD COUNT W/DIF F absolute neutrophil count 3.74 10_3/ uL 1.2-6. 7 normal Not Available [address] [place], [address] 02/18/2024 16:01:47 02/18/20 24 02/18/2024 COMPL ETE BLOOD COUNT W/DIF F absolute lymphocyte count 0.94 10_3/ uL 1.2-3. 4 low Not Available [address] [place], [address] 02/18/2024 16:01:47 02/18/20 24 02/18/2024 COMPL ETE BLOOD COUNT W/DIF F absolute monocyte count 0.48 10_3/ uL 0.1-0. 8 normal Not Available [address] [place], [address] 02/18/2024 16:01:47 02/18/20 24 02/18/2024 COMPL ETE BLOOD COUNT W/DIF F absolute eosinophil count 0.44 10_3/ uL 0.0-0. 7 normal Not Available [address] [place], [address] 02/18/2024 16:01:47 02/18/20 24 02/18/2024 COMPL ETE BLOOD COUNT W/DIF F absolute basophil count 0.06 10_3/ uL 0.0-0. 2 normal Not Available [address] [place], [address] 02/18/2024 16:01:47 02/18/20 24 02/18/2024 CALCI UM calcium 8.7 mg/dL 8.5-10 .1 normal Not Available [address] [place], [address] 02/18/2024 16:16:54 02/18/20 24 02/18/2024 PHOSP HORUS phosphorus 6.3 mg/dL 2.6-4. 7 high Not Available [address] [place], [address] 02/18/2024 16:16:55 02/18/20 24 02/18/2024 ALBUM IN albumin 3.6 g/dL 3.4-5. 0 normal Not Available [address] [place], [address] 02/18/2024 16:16:55 02/18/20 24 02/18/2024 CALCI UM calcium 8.7 mg/dL 8.5-10 .1 normal Not Available [address] [place], [address] 02/18/2024 16:51:02 02/18/20 24 02/18/2024 PHOSP HORUS phosphorus 6.3 mg/dL 2.6-4. 7 high Not Available [address] [place], [address] 02/18/2024 16:51:03 02/18/20 24 02/18/2024 ALBUM IN albumin 3.6 g/dL 3.4-5. 0 normal Not Available [address] [place], [address] 02/18/2024 16:51:03 02/18/20 24 02/18/2024 VITAM IN D 25 TOTAL vitamin D 25 total 14.1 NG/mL 30-100 low Refer ence Guide lines : Defic ient: <10 ng/ml Insuf ficie nt: 10-30 ng/ml Suffi cient : 30-10 0 ng/ml Toxic : >100 ng/ml Not Available [address] [place], [address] 02/18/2024 16:51:03 02/18/20 24 02/18/2024 PARAT HYROI D HORMO NE,IN TACT parathyroid hormone,inta ct 248 pg/mL 19- abnormal Test perfo rmed or refer red by [facility] [address] [place] [address] Not Available [address] [place], [address] 02/19/2024 09:25:59 04/30/20 24 04/30/2024 PROTE IN/CR EATIN INE URINE protein urine 141.2 mg/dL Not Available [address] [place], [address] 04/30/2024 11:47:26 04/30/20 24 04/30/2024 PROTE IN/CR EATIN INE URINE creatinine urine 27.87 mg/dL Not Available [address] [place], [address] 04/30/2024 11:47:26 04/30/20 24 04/30/2024 PROTE IN/CR EATIN INE URINE prot/crea ur ratio 5.06 Urine Prote in/Cr eatin ine Ratio Refer ence Range : <0.2 mg Prote in/mg Creat inine Not Available [address] [place], [address] 04/30/2024 11:47:26 04/30/20 24 04/30/2024 PROTE IN/CR EATIN INE URINE protein urine 141.2 mg/dL Not Available [address] [place], [address] 04/30/2024 08:23:36 04/30/20 24 04/30/2024 PROTE IN/CR EATIN INE URINE creatinine urine 27.87 mg/dL Not Available [address] [place], [address] 04/30/2024 08:23:36 04/30/20 24 04/30/2024 PROTE IN/CR EATIN INE URINE prot/crea ur ratio 5.06 Urine Prote in/Cr eatin ine Ratio Refer ence Range : <0.2 mg Prote in/mg Creat inine Not Available [address] [place], [address] 04/30/2024 08:23:36 04/30/20 24 04/30/2024 COMPL ETE BLOOD COUNT W/DIF F WBC 5.57 10_3/ uL 4.4-10 .8 normal Not Available [address] [place], [address] 04/30/2024 11:47:28 04/30/20 24 04/30/2024 COMPL ETE BLOOD COUNT W/DIF F RBC 3.14 10_6/ uL 4.36-5 .78 low Not Available [address] [place], [address] 04/30/2024 11:47:28 04/30/20 24 04/30/2024 COMPL ETE BLOOD COUNT W/DIF F HGB 10.0 g/dL 13.5-1 7.5 low Not Available [address] [place], [address] 04/30/2024 11:47:28 04/30/20 24 04/30/2024 COMPL ETE BLOOD COUNT W/DIF F HCT 30.3 % 40.0-5 0.0 low Not Available [address] [place], [address] 04/30/2024 11:47:28 04/30/20 24 04/30/2024 COMPL ETE BLOOD COUNT W/DIF F MCV 97 fL 80-95 high Not Available [address] [place], [address] 04/30/2024 11:47:28 04/30/20 24 04/30/2024 COMPL ETE BLOOD COUNT W/DIF F MCH 31.8 pg 27.0-3 3.0 normal Not Available [address] [place], [address] 04/30/2024 11:47:28 04/30/20 24 04/30/2024 COMPL ETE BLOOD COUNT W/DIF F MCHC 33.0 % 32.0-3 6.0 normal Not Available [address] [place], [address] 04/30/2024 11:47:28 04/30/20 24 04/30/2024 COMPL ETE BLOOD COUNT W/DIF F RDW 13.6 % 11.8-1 4.1 normal Not Available [address] [place], [address] 04/30/2024 11:47:28 04/30/20 24 04/30/2024 COMPL ETE BLOOD COUNT W/DIF F platelet count 190 10_3/ uL 130-40 0 normal Not Available [address] [place], [address] 04/30/2024 11:47:28 04/30/20 24 04/30/2024 COMPL ETE BLOOD COUNT W/DIF F MPV 10.1 fL 8.0-11 .0 normal Not Available [address] [place], [address] 04/30/2024 11:47:28 04/30/20 24 04/30/2024 COMPL ETE BLOOD COUNT W/DIF F neutrophils % 68.4 % Not Available [facility] [address] [place], [address] 04/30/2024 11:47:28 04/30/20 24 04/30/2024 COMPL ETE BLOOD COUNT W/DIF F lymphocytes % 13.3 % Not Available [facility] [address] [place], [address] 04/30/2024 11:47:28 04/30/20 24 04/30/2024 COMPL ETE BLOOD COUNT W/DIF F monocytes % 10.6 % Not Available [address] [place], [address] 04/30/2024 11:47:28 04/30/20 24 04/30/2024 COMPL ETE BLOOD COUNT W/DIF F eosinophils % 6.1 % Not Available [address] [place], [address] 04/30/2024 11:47:28 04/30/20 24 04/30/2024 COMPL ETE BLOOD COUNT W/DIF F basophils % 1.1 % Not Available [address] [place], [address] 04/30/2024 11:47:28 04/30/20 24 04/30/2024 COMPL ETE BLOOD COUNT W/DIF F immature grans % 0.5 % Not Available [address] [place], [address] 04/30/2024 11:47:28 04/30/20 24 04/30/2024 COMPL ETE BLOOD COUNT W/DIF F nucleated RBC 0.0 % 0.0-0. 3 normal Not Available [address] [place], [address] 04/30/2024 11:47:28 04/30/20 24 04/30/2024 COMPL ETE BLOOD COUNT W/DIF F absolute neutrophil count 3.81 10_3/ uL 1.2-6. 7 normal Not Available [address] [place], [address] 04/30/2024 11:47:28 04/30/20 24 04/30/2024 COMPL ETE BLOOD COUNT W/DIF F absolute lymphocyte count 0.74 10_3/ uL 1.2-3. 4 low Not Available [address] [place], [address] 04/30/2024 11:47:28 04/30/20 24 04/30/2024 COMPL ETE BLOOD COUNT W/DIF F absolute monocyte count 0.59 10_3/ uL 0.1-0. 8 normal Not Available [address] [place], [address] 04/30/2024 11:47:28 04/30/20 24 04/30/2024 COMPL ETE BLOOD COUNT W/DIF F absolute eosinophil count 0.34 10_3/ uL 0.0-0. 7 normal Not Available [address] [place], [address] 04/30/2024 11:47:28 04/30/20 24 04/30/2024 COMPL ETE BLOOD COUNT W/DIF F absolute basophil count 0.06 10_3/ uL 0.0-0. 2 normal Not Available [address] [place], [address] 04/30/2024 11:47:28 04/30/20 24 04/30/2024 IRON AND IBCT iron 56 ug/dL 65-175 low Not Available Mickie [address] [place], [address] 04/30/2024 11:47:24 04/30/20 24 04/30/2024 IRON AND IBCT total iron binding capacity 298 ug/dL 250-45 0 normal Not Available [address] [place], [address] 04/30/2024 11:47:24 04/30/20 24 04/30/2024 IRON AND IBCT transferrin sat 19 % 20-55 low Not Available Madie perla [address] [place], [address] 04/30/2024 11:47:24 04/30/20 24 04/30/2024 RAYMOND TIN ferritin 194 NG/mL 26-388 normal Not Available [address] [place], [address] 04/30/2024 11:47:21 04/30/20 24 04/30/2024 ALBUM IN albumin 3.7 g/dL 3.4-5. 0 normal Not Available [address] [place], [address] 04/30/2024 11:47:20 04/30/20 24 04/30/2024 PHOSP HORUS phosphorus 6.0 mg/dL 2.6-4. 7 high Not Available [address] [place], [address] 04/30/2024 11:47:20 04/30/2004/30/2024 BASIC METAB OLIC PANEL calcium 8.6 mg/dL 8.5-10 .1 normal Not Available [address] [place], [address] 04/30/2024 11:47:19 04/30/2004/30/2024 BASIC METAB OLIC PANEL glucose 109 mg/dL 74-106 high Not Available Mickie goldberg [address] [place], [address] 04/30/2024 11:47:19 04/30/2004/30/2024 BASIC METAB OLIC PANEL BUN 84 mg/dL 7-18 panic high Criti lakshmi value BUN repor iliana to and readb ack from DOMINGO BAR[place]OSA [place] [place] by LAB.B ONC Not Available [address] [place], [address] 04/30/2024 11:47:19 04/30/2004/30/2024 BASIC METAB OLIC PANEL creatinine 5.4 mg/dL 0.70-1 .30 panic high Criti lakshmi value CREAT ININE repor iliana to and readb ack from DOMINGO BARBOSA RN [place] [place]30 by LAB.B ONC Not Available [address] [place], [address] 04/30/2024 11:47:19 04/30/2004/30/2024 BASIC METAB OLIC PANEL estimated GFR 10.70 mL/min /1.73M 2 The eGFR is calcu lated from a serum creat inine using the CKD-E PI 2020 equat ion. Other varia bles requi red for the equat ion are gende r and age; this equat ion does not inclu de a race coeff icien t. This equat ion has simil ar overa ll perfo rmanc e to previ ous equat ions excep t value s may diffe r, in parti cular , in patie nts with highe r value s of eGFR and young er-ag ed adult s. Not Available [address] [place], [address] 04/30/2024 11:47:19 04/30/20 24 04/30/2024 BASIC METAB OLIC PANEL sodium 139 mmol/ L 136-14 5 normal Not Available [address] [place], [address] 04/30/2024 11:47:19 04/30/20 24 04/30/2024 BASIC METAB OLIC PANEL potassium 5.4 mmol/ L 3.5-5. 1 high Not Available [address] [place], [address] 04/30/2024 11:47:19 04/30/20 24 04/30/2024 BASIC METAB OLIC PANEL chloride 102 mmol/ L 98-107 normal Not Available [address] [place], [address] 04/30/2024 11:47:19 04/30/20 24 04/30/2024 BASIC METAB OLIC PANEL CO2 24.7 mmol/ L 21.0-3 2.0 normal Not Available [address] [place], [address] 04/30/2024 11:47:19 04/30/20 24 04/30/2024 BASIC METAB OLIC PANEL anion gap 12.3 mmol/ L 3-11 high Not Available [address] [place], [address] 04/30/2024 11:47:19 04/30/20 24 04/30/2024 IRON AND IBCT iron 56 ug/dL 65-175 low Not Available Mickie goldberg [address] [place], [address] 04/30/2024 08:36:39 04/30/20 24 04/30/2024 IRON AND IBCT total iron binding capacity 298 ug/dL 250-45 0 normal Not Available [address] [place], [address] 04/30/2024 08:36:39 04/30/20 24 04/30/2024 IRON AND IBCT transferrin sat 19 % 20-55 low Not Available Madie perla [address] [place], [address] 04/30/2024 08:36:39 04/30/20 24 04/30/2024 RAYMOND TIN ferritin 194 NG/mL 26-388 normal Not Available [address] [place], [address] 04/30/2024 08:32:40 04/30/2004/30/2024 ALBUM IN albumin 3.7 g/dL 3.4-5. 0 normal Not Available [address] [place], [address] 04/30/2024 08:32:40 04/30/20 24 04/30/2024 PHOSP HORUS phosphorus 6.0 mg/dL 2.6-4. 7 high Not Available [address] [place], [address] 04/30/2024 08:32:39 04/30/2004/30/2024 BASIC METAB OLIC PANEL calcium 8.6 mg/dL 8.5-10 .1 normal Not Available [address] [place], [address] 04/30/2024 08:32:38 04/30/20 24 04/30/2024 BASIC METAB OLIC PANEL glucose 109 mg/dL 74-106 high Not Available Mickie goldberg [address] [place], [address] 04/30/2024 08:32:38 04/30/2004/30/2024 BASIC METAB OLIC PANEL BUN 84 mg/dL 7-18 panic high Criti lakshmi value BUN repor iliana to and readb ack from DOMINGO BARBOSA, RN [place] [place] 0821 04/30 by LAB.B ONC Not Available [address] [place], [address] 04/30/2024 08:32:38 04/30/20 24 04/30/2024 BASIC METAB OLIC PANEL creatinine 5.4 mg/dL 0.70-1 .30 panic high Criti lakshmi value CREAT ININE repor iliana to and readb ack from DOMINGO BARBOSA RN ([facility] [place] 0821 04/30 by LAB.B ONC Not Available [address] [place], [address] 04/30/2024 08:32:38 04/30/20 24 04/30/2024 BASIC METAB OLIC PANEL estimated GFR 10.70 mL/min /1.73M 2 The eGFR is calcu lated from a serum creat inine using the CKD-E PI 2020 equat ion. Other varia bles requi red for the equat ion are gende r and age; this equat ion does not inclu de a race coeff icien t. This equat ion has simil ar overa ll perfo rmanc e to previ ous equat ions excep t value s may diffe r, in parti cular , in patie nts with highe r value s of eGFR and young er-ag ed adult s. Not Available [address] [place], [address] 04/30/2024 08:32:38 04/30/20 24 04/30/2024 BASIC METAB OLIC PANEL sodium 139 mmol/ L 136-14 5 normal Not Available [address] [place], [address] 04/30/2024 08:32:38 04/30/20 24 04/30/2024 BASIC METAB OLIC PANEL potassium 5.4 mmol/ L 3.5-5. 1 high Not Available [address] [place], [address] 04/30/2024 08:32:38 04/30/20 24 04/30/2024 BASIC METAB OLIC PANEL chloride 102 mmol/ L 98-107 normal Not Available [address] [place], [address] 04/30/2024 08:32:38 04/30/20 24 04/30/2024 BASIC METAB OLIC PANEL CO2 24.7 mmol/ L 21.0-3 2.0 normal Not Available [address] [place], [address] 04/30/2024 08:32:38 04/30/20 24 04/30/2024 BASIC METAB OLIC PANEL anion gap 12.3 mmol/ L 3-11 high Not Available [address] [place], [address] 04/30/2024 08:32:38 04/30/20 24 04/30/2024 COMPL ETE BLOOD COUNT W/DIF F WBC 5.57 10_3/ uL 4.4-10 .8 normal Not Available [address] [place], [address] 04/30/2024 07:55:30 04/30/20 24 04/30/2024 COMPL ETE BLOOD COUNT W/DIF F RBC 3.14 10_6/ uL 4.36-5 .78 low Not Available [address] [place], [address] 04/30/2024 07:55:30 04/30/20 24 04/30/2024 COMPL ETE BLOOD COUNT W/DIF F HGB 10.0 g/dL 13.5-1 7.5 low Not Available [address] [place], [address] 04/30/2024 07:55:30 04/30/20 24 04/30/2024 COMPL ETE BLOOD COUNT W/DIF F HCT 30.3 % 40.0-5 0.0 low Not Available [address] [place], [address] 04/30/2024 07:55:30 04/30/20 24 04/30/2024 COMPL ETE BLOOD COUNT W/DIF F MCV 97 fL 80-95 high Not Available Mickie [address] [place], [address] 04/30/2024 07:55:30 04/30/20 24 04/30/2024 COMPL ETE BLOOD COUNT W/DIF F MCH 31.8 pg 27.0-3 3.0 normal Not Available [address] [place], [address] 04/30/2024 07:55:30 04/30/20 24 04/30/2024 COMPL ETE BLOOD COUNT W/DIF F MCHC 33.0 % 32.0-3 6.0 normal Not Available [address] [place], [address] 04/30/2024 07:55:30 04/30/20 24 04/30/2024 COMPL ETE BLOOD COUNT W/DIF F RDW 13.6 % 11.8-1 4.1 normal Not Available [address] [place], [address] 04/30/2024 07:55:30 04/30/20 24 04/30/2024 COMPL ETE BLOOD COUNT W/DIF F platelet count 190 10_3/ uL 130-40 0 normal Not Available [address] [place], [address] 04/30/2024 07:55:30 04/30/20 24 04/30/2024 COMPL ETE BLOOD COUNT W/DIF F MPV 10.1 fL 8.0-11 .0 normal Not Available [address] [place], [address] 04/30/2024 07:55:30 04/30/20 24 04/30/2024 COMPL ETE BLOOD COUNT W/DIF F neutrophils % 68.4 % Not Available [address] [place], [address] 04/30/2024 07:55:30 04/30/20 24 04/30/2024 COMPL ETE BLOOD COUNT W/DIF F lymphocytes % 13.3 % Not Available [address] [place], [address] 04/30/2024 07:55:30 04/30/20 24 04/30/2024 COMPL ETE BLOOD COUNT W/DIF F monocytes % 10.6 % Not Available [address] [place], [id number] 04/30/2024 07:55:30 04/30/20 24 04/30/2024 COMPL ETE BLOOD COUNT W/DIF F eosinophils % 6.1 % Not Available [address] [place], [address] 04/30/2024 07:55:30 04/30/20 24 04/30/2024 COMPL ETE BLOOD COUNT W/DIF F basophils % 1.1 % Not Available [address] [place], [id number] 04/30/2024 07:55:30 04/30/20 24 04/30/2024 COMPL ETE BLOOD COUNT W/DIF F immature grans % 0.5 % Not Available [address] [place], [id number] 04/30/2024 07:55:30 04/30/20 24 04/30/2024 COMPL ETE BLOOD COUNT W/DIF F nucleated RBC 0.0 % 0.0-0. 3 normal Not Available [address] [place], [id number] 04/30/2024 07:55:30 04/30/20 24 04/30/2024 COMPL ETE BLOOD COUNT W/DIF F absolute neutrophil count 3.81 10_3/ uL 1.2-6. 7 normal Not Available [address] [place], [address] 04/30/2024 07:55:30 04/30/20 24 04/30/2024 COMPL ETE BLOOD COUNT W/DIF F absolute lymphocyte count 0.74 10_3/ uL 1.2-3. 4 low Not Available [address] [place], [address] 04/30/2024 07:55:30 04/30/20 24 04/30/2024 COMPL ETE BLOOD COUNT W/DIF F absolute monocyte count 0.59 10_3/ uL 0.1-0. 8 normal Not Available [address] [place], [address] 04/30/2024 07:55:30 04/30/20 24 04/30/2024 COMPL ETE BLOOD COUNT W/DIF F absolute eosinophil count 0.34 10_3/ uL 0.0-0. 7 normal Not Available [address] [place], [address] 04/30/2024 07:55:30 04/30/20 24 04/30/2024 COMPL ETE BLOOD COUNT W/DIF F absolute basophil count 0.06 10_3/ uL 0.0-0. 2 normal Not Available [address] [place], [address] 04/30/2024 07:55:30 06/08/1906/08/2024 ALBUM IN albumin 3.1 g/dL 3.4-5. 0 low Not Available [address] [place], [address] 06/08/2024 11:28:22 06/08/1906/08/2024 BASIC METAB OLIC PANEL calcium 8.5 mg/dL 8.5-10 .1 normal Not Available [address] [place], [address] 06/08/2024 11:28:21 06/08/1906/08/2024 BASIC METAB OLIC PANEL glucose 86 mg/dL 74-106 normal Not Available Mickie goldberg [address] [place], [address] 06/08/2024 11:28:21 06/08/1906/08/2024 BASIC METAB OLIC PANEL BUN 98 mg/dL 7-18 panic high Criti lakshmi value BUN repor iliana to and readb ack from DOMIGNO [place] [place] [address] LAB.B ONC Not Available [address] [place], [address] 06/08/2024 11:28:21 06/08/1906/08/2024 BASIC METAB OLIC PANEL creatinine 6.4 mg/dL 0.70-1 .30 panic high Criti lakshmi value CREAT ININE repor iliana to and readb ack from DOMINGO BAR[place] [place] [address] LAB.B ONC Not Available [address] [place], [address] 06/08/2024 11:28:21 06/08/1906/08/2024 BASIC METAB OLIC PANEL estimated GFR 8.73 mL/min /1.73M 2 The eGFR is calcu lated from a serum creat inine using the CKD-E PI 2020 equat ion. Other varia bles requi red for the equat ion are gende r and age; this equat ion does not inclu de a race coeff icien t. This equat ion has simil ar overa ll perfo rmanc e to previ ous equat ions excep t value s may diffe r, in parti cular , in patie nts with highe r value s of eGFR and young er-ag ed adult s. Not Available [address] [place], [address] 06/08/2024 11:28:21 06/08/19 25 06/08/2024 BASIC METAB OLIC PANEL sodium 145 mmol/ L 136-14 5 normal Not Available [address] [place], [address] 06/08/2024 11:28:21 06/08/19 25 06/08/2024 BASIC METAB OLIC PANEL potassium 4.9 mmol/ L 3.5-5. 1 normal Not Available [address] [place], [address] 06/08/2024 11:28:21 06/08/19 25 06/08/2024 BASIC METAB OLIC PANEL chloride 109 mmol/ L 98-107 high Not Available [address] [place], [address] 06/08/2024 11:28:21 06/08/19 25 06/08/2024 BASIC METAB OLIC PANEL CO2 20.6 mmol/ L 21.0-3 2.0 low Not Available [address] [place], [address] 06/08/2024 11:28:21 06/08/19 25 06/08/2024 BASIC METAB OLIC PANEL anion gap 15.4 mmol/ L 3-11 high Not Available [address] [place], [address] 06/08/2024 11:28:21 06/08/19 25 06/08/2024 COMPL ETE BLOOD COUNT W/DIF F WBC 4.69 10_3/ uL 4.4-10 .8 normal Not Available [address] [place], [address] 06/08/2024 11:10:17 06/08/19 25 06/08/2024 COMPL ETE BLOOD COUNT W/DIF F RBC 2.58 10_6/ uL 4.36-5 .78 low Not Available [address] [place], [address] 06/08/2024 11:10:17 06/08/19 25 06/08/2024 COMPL ETE BLOOD COUNT W/DIF F HGB 8.2 g/dL 13.5-1 7.5 low Not Available [address] [place], [address] 06/08/2024 11:10:17 06/08/19 25 06/08/2024 COMPL ETE BLOOD COUNT W/DIF F HCT 25.2 % 40.0-5 0.0 low Not Available [address] [place], [address] 06/08/2024 11:10:17 06/08/19 25 06/08/2024 COMPL ETE BLOOD COUNT W/DIF F MCV 98 fL 80-95 high Not Available [address] [place], [address] 06/08/2024 11:10:17 06/08/19 25 06/08/2024 COMPL ETE BLOOD COUNT W/DIF F MCH 31.8 pg 27.0-3 3.0 normal Not Available [address] [place], [address] 06/08/2024 11:10:17 06/08/19 25 06/08/2024 COMPL ETE BLOOD COUNT W/DIF F MCHC 32.5 % 32.0-3 6.0 normal Not Available [address] [place], [address] 06/08/2024 11:10:17 06/08/19 25 06/08/2024 COMPL ETE BLOOD COUNT W/DIF F RDW 12.9 % 11.8-1 4.1 normal Not Available [address] [place], [address] 06/08/2024 11:10:17 06/08/19 25 06/08/2024 COMPL ETE BLOOD COUNT W/DIF F platelet count 219 10_3/ uL 130-40 0 normal Not Available [address] [place], [address] 06/08/2024 11:10:17 06/08/19 25 06/08/2024 COMPL ETE BLOOD COUNT W/DIF F MPV 9.9 fL 8.0-11 .0 normal Not Available [address] [place], [address] 06/08/2024 11:10:17 06/08/19 25 06/08/2024 COMPL ETE BLOOD COUNT W/DIF F neutrophils % 72.0 % Not Available [address] [place], [address] 06/08/2024 11:10:17 06/08/19 25 06/08/2024 COMPL ETE BLOOD COUNT W/DIF F lymphocytes % 11.1 % Not Available [address] [place], [address] 06/08/2024 11:10:17 06/08/19 25 06/08/2024 COMPL ETE BLOOD COUNT W/DIF F monocytes % 13.0 % Not Available [address] [facility] [place], [address] 06/08/2024 11:10:06/08/19 25 06/08/2024 COMPL ETE BLOOD COUNT W/DIF F eosinophils % 2.6 % Not Available [address] [place], [address] 06/08/2024 11:10:17 06/08/19 25 06/08/2024 COMPL ETE BLOOD COUNT W/DIF F basophils % 0.9 % Not Available [address] [facility] [place], [address] 06/08/2024 11:10:17 06/08/19 25 06/08/2024 COMPL ETE BLOOD COUNT W/DIF F immature grans % 0.4 % Not Available [address] [place], [address] 06/08/2024 11:10:17 06/08/19 25 06/08/2024 COMPL ETE BLOOD COUNT W/DIF F nucleated RBC 0.0 % 0.0-0. 3 normal Not Available [address] [facility] [place], [address] 06/08/2024 11:10:17 06/08/19 25 06/08/2024 COMPL ETE BLOOD COUNT W/DIF F absolute neutrophil count 3.38 10_3/ uL 1.2-6. 7 normal Not Available [address] [place], [address] 06/08/2024 11:10:17 06/08/19 25 06/08/2024 COMPL ETE BLOOD COUNT W/DIF F absolute lymphocyte count 0.52 10_3/ uL 1.2-3. 4 low Not Available [address] [place], [address] 06/08/2024 11:10:17 06/08/19 25 06/08/2024 COMPL ETE BLOOD COUNT W/DIF F absolute monocyte count 0.61 10_3/ uL 0.1-0. 8 normal Not Available [address] [facility] [place], [address] 06/08/2024 11:10:17 06/08/19 25 06/08/2024 COMPL ETE BLOOD COUNT W/DIF F absolute eosinophil count 0.12 10_3/ uL 0.0-0. 7 normal Not Available [address] [place], [address] 06/08/2024 11:10:17 06/08/19 25 06/08/2024 COMPL ETE BLOOD COUNT W/DIF F absolute basophil count 0.04 10_3/ uL 0.0-0. 2 normal Not Available [address] [place], [address] 06/08/2024 11:10:17 09/25/19 24 09/25/2023 ultra sound imagi ng repor t Preethi t Name: Mathew Mendez Unit #: [id number] Loc: DI Orderi ng Provid er: Akil Richardson t #: [id number] Status : REG CLI Primar y Care Provid er: Valeria Tran Date of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 08/31/22 oxycodone 6mg tab #20 Anemia in chronic kidney disease 890566906 D63.1 a/w low iron, recheck level to see if iron still needed Chronic ki dney disease stage 4 713418042 N18.4 Nephrology notes reviewed, though I still need the most recent note. No mecication changes, tolerating SGLT2i. Hand wart 794395640 B07. 8 cryo today Actinic keratosis 015727 007 L57.0 cryo today [id number] VALERIA TRAN MD [facility] [address] [place] [address] 05/23/2023 16:35:10 05/23/2023 16:53:30 Anemia in chronic kidney disease 056340131 D63.1 a/w low iron, recheck levels normal but he is feeling less energy off the iron supplement . Plan to restart. Follow iron levels with routine labs in per nephrology If he isn't feeling better, however, back on iron, he will need renal labs done before then and follow up in person. Sharma's esophagus 3029 58431 K22.70 We clarified his endoscopy and colo for monitoring is due in September with Dr. Gar. I don't think he'll need a referral but we can send one if needed. He continues on PPI. [id number] VALERIA TRAN MD [facility] [address] [place] [address] 08/15/2023 15:00:23 08/15/2023 15:52:30 Hyperparathyroidism due to renal insufficiency 85671572 N25.81 He is running out of calcitriol , I will refill. Has nephrology follow up with recheck of Ca/Phos/PT H/Vit D. Chronic ki dney disease stage 4 088184006 N18.4 On low dose KATE and tolerating SGLT2i. Due for repeat labs, especially after diarrhea, but already has scheduled [place] [facility] [place]. Food poisoning 82652282 A05.9 Per history episode in [place] c/w food poisoning with acute onset and resolution after loose BMs. He never got a work up in the ED, but is no longer symptomati c. Having some harder stools now, I agree psyllium reasonable , especially with h/o diverticul itis.we also discussed importance of hydration given CKD, seeking medical evaluation if dehydrated . [id number] Erika Mejia PA-C [address] [place] [address] 10/01/2023 15:07:20 10/01/2023 16:10:16 Fracture of middle phalanx of finger 109260075 S60.943A Open fracture of left distal middle finger. Spoke with PA at [facility] and he recommende d suturing for loose approximat ion, making sure there is no malrotatio n when flexing/ex tending.Pt had full sensation, nail attached and intact without superficia l subungual hematoma, bluish hue appears to be due to deeper bruising d/t crush injury, FDP and FDS in tact with out malrotatio n. 3 sutures placed to loosely approximat e skin after 1L of saline was used for irrigation . Area was dressed with non adhesive bandage, surgitube and placed in a finger splint, advised this splint would have to be used at all times for about 6 weeks. 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 Td given today. Due to appearance of xray with possible slight displaceme nt and livelihood where he uses his hands for work, will refer to orthopedic s to ensure good healing. Asked pt to RTC for re-eval of wound in 48-72 hours to ensure no s/sxs of infection. He was also clounseled to monitor and seek additional medical care in the case of any redness, increased pain, swelling, discharge, fever, numbness or tingling. Pt understand s and agrees. [id number] JANN GÓMEZ PA-C [address] [address] 10/02/2023 14:43:45 10/02/2023 16:37:47 Fracture of middle phalanx of finger 990828529 S60.304X Patient sustained fracture to the left middle finger yesterday which is open wound given the laceration on the ulnar side. Has had a slow bloody ooze since leaving here 24 hours ago. Patient reports pain is well-kia ated and he thought it was going to be more uncomforta ble. He did receive a phone call from [facility] but has not been able to speak with him directly. He is actively trying to speak with them while he is in clinic. Patient has had a slow bleed since, endorses does not take blood thinners. Has been trying to limit use of this hand. I have placed a finger tourniquet and allowed to be in place for 10 minutes and have also at the tip of the finger where the wound is applied a TXA soaked gauze and pressure dressing overlying. We will do this a total of 3 times if needed to see if we can help control the bleeding. After 10 minutes he tourniquet is removed as well as the TXA soaked gauze is removed. No immediate rebleed. For an additional 10 minutes a TXA soaked gauze is applied held in place with Coban without tourniquet . This is taken off after 10 minutes and no signs of bleeding. It is then allowed to sit open for 10 minutes to see if rebleed returns. After a short period of time there does appear to be a very small ooze and thus repeat tourniquet and TXA soaked gauze done for 10 minutes. Again allowed to sit open for 10 minutes without rebleeding at this point bacitracin ointment and a nonstick dressing is applied to the wound with overlying surgitube and then I used Coban to lightly hold the fingers together like a mily tape because patient cannot tolerate the finger splint. I have educated him that it is very important that he not move this finger. I want to do everything I can to preserve the blood clot we have establishe d. If rebleed returns he can return here as needed for dressing change. He did speak with the orthopedic clinic while here and he has an appointmen t in 1 week from now [id number] ARMANDO ACUNA [facility] [address] [place] [address] 10/25/2023 07:51:34 10/25/2023 08:43:53 Chronic kidney disease stage 4 987310753 N18.4 He has f/[place] [facility] [place]. They are considerin g renal biopsy. 11/06/2023 is the f/u date. Negative for FLC in urine. Pt. reports labs improved thus far with 1 tsp of baking soda daily. Anemia in chronic kidney disease 578076369 D63.1 He will continue Iron for now. We will add labs to his [facility] blood draw 11/06/2023, Secondary hyperparathyroidism 86139919 E21.1 Will check labs as below from [facility] lab for 11/06/2023. Essential hypertension 03999193 I10 Pt < 130/80 today and goal. Will maintain current therapies w/out change. [facility] serially checking BMP's for moment. Chronic al coholism in remission 067049310 F10.21 Pt. sober, in recovery with AA, ~ 2-years, not complacent , participat es and enjoys life in active recovery from alcoholism . 3-4 meetings per week. Pt. encouraged to keep up the activity in the fellowship as he clearly benefits and feels good about himself, not having cravings, and not missing the life of daily drinking. [id number] ARMANDO ACUNA [facility] [address] [place] [address] 02/18/2024 07:28:45 02/18/2024 08:38:53 Sharma's esophagus 898040082 K22.70 Pt. Had 01/02/2024 EGD. Gastro note reviewed. Hyperparat hyroidism due to renal insufficiency 63223854 N25.81 recheck of Albumin/Ca /Phos/PTH/ Vit D. Dosing for Calcitriol is Initial: 0.25 to 0.5 mcg twice daily (Ref). May adjust dose in 0.25 mcg/day increments every 1 to 4 weeks if needed to achieve target albumin-co rrected serum calcium levels; usual dosage range: 0.5 to 2 mcg/day per up to date. Essential hypertension 61389723 I10 Pt. 138/76 in office today. He states he had a high reading at Dr Reddy, he consulted with . Pt < 130/80 today. Chronic ki dney disease stage 4 599618242 N18.4 Reviewed 11/06/2023 Nephrology [facility] [place]. Lisinopril increased to 20 mg. Iron studies ordered for assessment given decline in absorption a/w CKD Fatigue 18326982 R53.83 Pt. had stress test in 2022, Had negative stress test. Auscultati on of heart sounds reveals 2/6 systolic murmur. No naps this year compared to last year. 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 Perhaps also related to higher blood pressures. Active or passive immunization 716458197 Z23 [id number] ARMANDO ACUNA [facility] [address] [place] [address] 03/12/2024 13:16:00 03/12/2024 13:59:29 [id number] ARMANDO ACUNA [facility] [address] [place] [address] 05/28/2024 09:18:05 05/28/2024 11:33:18 Adult health examination 960169507 Z00.00 No concerns on exam today. No falls, gait is steady. Nurse get up and go was 8, in office with me was 3 seconds without stability issue. Up to date on screenings . Systolic murmur 82916982 R01.1 Will wait on cardiology referral as pt. is stable, just mild MVR, TVR. Anemia in chronic kidney disease 874729569 D63.1 Likely related to CKD Stage IV, H/H have been in 10's/low 30's range and stable last check 04/30/2024, ferritin normal, serum iron slightly low. Continue iron supplement . Will recheck in 6-mos if > 3-mos since his last labs for this (nephrolog y also monitoring this). Advance care planning 71 1612108 Z71.89 Pt. will check if he has/review with his . He will get Health Concerns Section Related Observation LastModified by Organization Detai ls LastModified Time None Recorded Concern Status LastModified by Organization Details LastModified Time None Recorded Advance Directives Directive Y: Payers Encounter Date Sequence Insurance Name Policy Number Policy Banerjee Covered Member ID Banerjee Member ID Guarantor Name 10/02/2023 1 [employer] DVANTAGE - PPO) Mathew Mendez [id number] Mathew Mendez 10/25/2023 1 [place] - [place]) Mathew Haqueue [id number] Mathew Mendez 02/18/2024 1 [place] - [place]) Mathew Haqueue [id number] Mathew Mendez 03/12/2024 1 [place] - [place]PO) Mathew Mendez [id number] Mathew Mendez 05/28/2024 1 [place] - [place]) Mathew Mendez [id number] Mathew Mendez Notes Date Note Type Note Provider Name and Address Organization Details Recorded Time 4 text/html Mathew is a 68-year-old male who sustained [...] his antibiotics as prescribed. [address], [place], [address], [facility]. 10/02/2023 18:54:45 4 text/html Pt, 68-M, here to establish care with [...] per Nephrology (Dr. Huynh) note review from [facility] 09/29/2023. Last Creatinine 3.21 09/29/2023 at [facility]. Standing order at [facility] for BMP per [facility] Nephrology. They are considering kidney biopsy [...] is likely per Nephrology note review from [facility] 09/29/2023. Last Creatinine 3.21 09/29/2023 at [facility]. Standing order at [facility] for BMP per [facility] Nephrology. They are considering kidney biopsy [...] 05/23/2023 note review. 11/10/2023 for Upper UE, [place] and r/u visit 11/19/2023. ARMANDO ACUNA [address], [place], [address], [facility] 05/28/2024 07:42:53 4 text/html Pt, 68-M, here for f/u. He recent had U/L Endoscopy in December, and he has f/u March. A couple small polyps on the Colonoscopy. IBS like Symptoms: Guided by GI to do daily Miralax for 30-days straight and this has helped decrease abdominal. Right Side Rotator Cuff: Going to head towards [facility] for total replacement, deferred by Dr. Reddy due to Stage IV Kidney disease. [address], [place], [address], [facility] 02/18/2024 15:13:57 5 text/html Pt, 69-M, here for annual. CKD: Pt. reports Dr. Richardson trying [...] stools, excessive gas or bloating, diarrhea or constipation.Pulmonary: Pt. denies any shortness of breath, cough, [...] denies any bleeding with tooth brushing. ARMANDO ACUNA [address], [place], [address], [facility]. 05/28/2024 11:27:57
--- OUTSIDE RECORDS SUMMARY | 2024-06-08 12:42 | XMS_ITS | Encounter Summary ---
Author Organization [facility] Address [address] [place] [address] Care Team Providers Care Animal Groomer Name Role Phone Luis Lauren MD Primary Care Provider [phone] Reason for Visit * Reason Comments Follow-up Incisional hernia Encounter Details Date Type Department Care Team (Late st Contact Info) Description 08/02/2022 16:40 EST Office Visit [facility] General Surgery - [address] [phone] Ollie Lee MD [address] [place] [address], [address] [place] [address] Incisional hernia, without obstruction or [...] EST documented in this encounter Functional Status * Are you deaf or do you have serious difficulty hearing? Answer Date of Assessment Author Yes 07/31/2021 20:00 EST Cedrick Sanon RN * Are you blind or do you have serious difficulty seeing, even when wearing glasses? Answer Date of Assessment Author No 10/25/2021 16:00 Becky Langford RN * Do you have serious difficulty walking or climbing stairs? (5 years old or older) Answer Date of Assessment Author No 10/25/2021 16:00 Becky Langford RN * Do you have difficulty dressing [...] Becky Langford RN documented in this encounter Progress Notes * Ollie Lee [...] Stage IV, followed by nephrology @ [facility], no restrictions per pt ??? Diverticulitis [...] that the hernia was reduced. ??? COLECTOMY 2005 with colostomy ??? OTHER SURGICAL HISTORY 2006 [...] Some of this note was transcribed with [employer] software. While it was proofread, it may [...] may reflect changes made after this encounter. MULTIVITAMIN ORAL Take by mouth. CALCITRIOL ORAL Take by mouth. ergocalciferol, vitamin D2, (VITAMIN D2 ORAL) Take by mouth. added in this encounter Care Teams Animal Groomer Relationship Specialty Start Date End Date Luis Lauren MD [address] [place] [address] PCP - General Family Medicine - Primary Care 11/23/21 11/11/22 documented as of this encounter
--- OUTSIDE RECORDS SUMMARY | 2024-06-08 12:42 | XMS_ITS | Encounter Summary ---
Author Organization [facility] Address [address] [place] [address] Care Team Providers Care Nurse Orthopaedic Name Role Phone Slade Tran MD Primary Care Provider [phone] Encounter Details Date Type Department Care Team (Late st Contact Info) Description 09/23/2023 Lab Requisition [facility] Pathology & Laboratory Medicine - [facility] [address], [place] [address] Outr Resulting Lab, Provider Social History Tobacco [...] 61.9 55.8 - 66.1 % 09/24/2023 13:49 EDT [facility] Albumin g/dL 4.1 3.6 - 5.2 g/dL 09/24/2023 13:49 EDT [facility] Alpha-1 % 4.5 2.9 - 4.9 % 09/24/2023 13:49 T [facility] Alpha-1 g/dL 0.30 0.15 - 0.40 g/dL 09/24/2023 13:49 [facility] Alpha-2 % 12.3(H) 7.1 - 11.8 % 09/24/2023 13:49 [facility] Alpha-2 g/dL 0.80 0.50 - 1.00 g/dL 09/24/2023 13:49 [facility] Beta % 10.3 8.4 - 13.1 % 09/24/2023 13:49 [facility] Beta g/dL 0.70 0.60 - 1.20 g/dL 09/24/2023 13:49 [facility] Gamma % 11.0(L) 11.1 - 18.8 % 09/24/2023 13:49 [facility] Gamma g/dL 0.70 0.60 - 1.60 g/dL 09/24/2023 13:49 [facility] SPEP Comment No apparent monoclonal protein seen on serum electrophoresis 09/24/2023 13:49 [facility] Comment:See scanned/suppleme ntary report. Total Protein 6.6 6.3 - 8.2 g/dL 09/24/2023 13:49 [facility] Blood VENOUS BLOOD / Unknown 09/23/2023 12:58 EDT 09/23/2023 21:05 EDT us Provider Outr Resulting Lab CHEMISTRY & BLOOD GA S ORDERABLES Final Result Performing Organization Address [facility] Co de Phone Number [facility] [address] [place] [id number] * PROTEIN, TOTAL (09/23/2023 12:58 EDT) Blood VENOUS BLOOD / Unknown 09/23/2023 12:58 EDT 09/23/2023 21:05 EDT us Provider Outr Resulting Lab CHEMISTRY & BLOOD GA S ORDERABLES Final Result Performing Organization Address [facility]/ZIP Co de Phone Number [facility] [address] [place] [address] * IMMUNOGLOBULINS (09/23/2023 12:58 EDT) IgG 671 610 - 1,616 mg/dL 09/24/2023 8:29 EDT [facility] IgA 144 85 - 499 mg/dL 09/24/2023 8:29 EDT [facility] IgM 120 35 - 242 mg/dL 09/24/2023 8:29 EDT [facility] Blood VENOUS BLOOD / Unknown 09/23/2023 12:58 EDT 09/23/2023 21:05 EDT us Provider Outr Resulting Lab CHEMISTRY & BLOOD GA S ORDERABLES Final Result [facility] [address], [place] [address] documented in this encounter Visit Diagnoses Not on filedocumented in this encounter Care Teams Nurse Orthopaedic Relationship Specialty Start Date End Date Slade [place] [address] [place] [address] PCP - General 11/12/22 documented as of this encounter
--- OUTSIDE RECORDS SUMMARY | 2024-06-08 12:42 | XMS_ITS | Encounter Summary ---
Author Organization [facility] Address [address] [place] [address] Care Team Providers Care Short Haul Driver Name Role Phone Slade Tran MD Primary Care Provider [phone] Reason for Visit * Radiology Services (Routine/Next Available) - Authorization Not Required Specialty Diagnoses / Procedures Referred By Contac t Referred To Contact Diagnoses Paraesophageal hernia Procedures FL UGI AIR W SPECIALIST FIELD ENGINEER FL UGI AIR WO SPECIALIST FIELD ENGINEER Ollie Lee MD Phone: tel: fax: [facility] Referral ID Status Reason Start Date Expiration Date Visits Requested Visits Authorized [id number] Authorization Not Required 11/23/2021 1 1 Encounter Details Date Type Department Care Team (Latest Contact Info) Description 11/12/2022 10:01 EDT - 11/12/2022 23:59 EDT Hospital Encounter [facility] Radiology Fluoroscopy - Main [address] [phone] Paraesophageal hernia Discharge Disposition: Home or Self [...] Becky Langford RN documented in this encounter Medications at Time of Discharge acetaminophen (TYLENOL) 325 mg tablet Take 2 [...] Associated Diagnosis Comments FL UGI AIR W SPECIALIST FIELD ENGINEER Routine 11/12/2022 10 :45 EDT Paraesophageal hernia documented in this encounter Results * FL UGI AIR W SPECIALIST FIELD ENGINEER (11/12/2022 10:45 EDT) Anatomical Region Laterality Modality [...] 11/12/2022 12:01 EDT FL UGI AIR W SPECIALIST FIELD ENGINEER ??11/12/2022 10:30 AM Signs and Symptoms/Comments: ?? 1 year routine post-op check, r/o recurrent hiatal hernia Comparison: Fluoroscopic UGI 08/01/2021. Technique: Single and double contrast views of the thoracic esophagus, stomach, duodenal bulb, and sweep were obtained. Findings: Grading Machine Operator film demonstrates surgical clips projecting over [...] MD - 11/12/2022 FL UGI AIR W SPECIALIST FIELD ENGINEER 11/12/2022 10:30 AM Signs and Symptoms/Comments: 1 year routine post-op check, r/o recurrent hiatal hernia Comparison: Fluoroscopic UGI 08/01/2021. Technique: Single and double contrast views of the thoracic esophagus, stomach,duodenal bulb, and sweep were obtained. Findings: Grading Machine Operator film demonstrates surgical clips projecting over [...] with the findings. Ollie Lee MD IMG FLUOROSCOPY O RDERABLES Final Result documented in this encounter Visit Diagnoses Diagnosis Paraesophageal hernia Diaphragmatic hernia without mention of obstruction or gangrene documented in this encounter Care Teams Short Haul Driver Relationship Specialty Start Date End Date Slade Tran MD [address] [place] [address] PCP - General 11/12/22 documented as of this encounter
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
--- OUTSIDE RECORDS SUMMARY | 2024-06-08 12:42 | XMS_ITS | Encounter Summary ---
Author Organization [facility] Address [address] [place] [address] Care Team Providers Care Pricing Coordinator Name Role Phone Luis Lauren MD Primary Care Provider [phone] Reason for Visit * Reason Onset Date Comments Hernia 06/25/2022 Encounter Details Date Type Department Care Team (Late st Contact Info) Description 06/25/2022 Telephone [facility] General Surgery - [address] [phone] Ollie Lee MD [address] [facility], [address] [place] [address] Hernia Social History Tobacco Use [...] Becky Langford RN documented in this encounter Miscellaneous Notes * [...] on filedocumented in this encounter Care Teams Pricing Coordinator Relationship Specialty Start Date End Date uLis Lauren MD [address] [place] [address] PCP - General Family Medicine - Primary Care 11/23/21 11/11/22 documented as of this encounter
--- OUTSIDE RECORDS SUMMARY | 2024-06-08 12:42 | XMS_ITS | Encounter Summary ---
Author Organization [facility] Address [address] [place] [address] Care Team Providers Care Slate Splitting Supervisor Name Role Phone Luis Lauren MD Primary Care Provider [phone] Slade Tran MD Primary Care Provider [phone] Encounter Details Date Type Department Care Team (Late st Contact Info) Description 05/02/2022 Lab Requisition [facility] Pathology & Laboratory Medicine - [facility] [address] [place], [place] [phone] Outr Resulting Lab, Provider Social History Tobacco [...] 19 - 88 pg/mL 05/02/2022 22:56 EST [facility] Blood VENOUS BLOOD / Unknown 05/02/2022 11:10 EST 05/02/2022 21:29 EST us Provider Outr Resulting Lab CHEMISTRY & BLOOD GA S ORDERABLES Final Result [facility] [address] [place] [address] documented in this encounter Visit Diagnoses Not on filedocumented in this encounter Care Teams Slate Splitting Supervisor Relationship Specialty Start Date End Date Luis Lauren MD [address] [place] [address] PCP - General Family Medicine - Primary Care 11/23/21 11/11/22 Slade Tran MD [facility] [address] [facility] [address] PCP - General 11/12/22 documented as of this encounter
--- OUTSIDE RECORDS SUMMARY | 2024-06-08 12:42 | XMS_ITS | Clinical Summary ---
Author Organization [facility] Address [address] [place] [address] Care Team Providers Care Manager Banquet Name Role Phone Slade Tran MD Primary Care Provider [phone] Allergies Active Allergy Reactions Criticality Noted Date [...] was reduced. TOTAL KNEE ARTHROPLASTY Right around 2016 COLECTOMY 05/27/2004 - 05/26/2005 with colostomy OTHER [...] reveral a year later Chronic alcoholic pancreatitis ([facility]) no issues, no hospitalizations. Acute gastric volvulus 06/2021 s/p emerg ent surgery 07/2021 History of Sharma's esophagus f ollowed by GI Hyperlipidemia Hx of skin cancer, basal cell 06/2019 le ft ear History of general anesthesia History of epidural anesthesia s oyvana with knee surg Sleep apnea does not use cpa p machine Activity, other involving cardiorespiratory exercise very active, is a gomez, c an amb 2 flight of stairs without SOB HTN (hypertension) lisinopril w/ gd effect Gout allopurinol effe ctive for years GERD (gastroesophageal reflux disease) omeprazole very effective, can lye flat Anemia chronic secondar y to CKD Lumbar spondylosis back, sees ch iropractor about every 4 months Cancer ([facility]) skin cancer lef t ear, removed 2019 Eczema right ankle, has a cream from dermatology CKD (chronic kidney disease) Sta ge IV, followed by nephrology @ [facility], no restrictions per pt Wears hearing [...] Health Maintenance Due Date Last Done Comments Fall Risk Screening 2019 COVID-19 Vaccine ( season) 2024 03/13/2021, 08/16/2020, 07/25/2020 RSV Immunization ( o r 60+ Years) (1 - 1-dose 75+ series) 2029 Hepatitis C Screen Completed 10/20/2021 Medical Devices Implanted Type Area First Aid Officer Device Identifier Shelf Expiration Date Model / Serial / Lot Mesh Hernia 4 X 8cm [employer] Core Permanent - [id number] Implanted:Qty: 1 on 10/25/2021 by Ollie [place] MD at [facility] Mesh N/A: Esophagus [employer] 06/26/2023 [id number] / / [id number] Procedures Procedure Name Priority Date/Time Associated Diagnosis Comments HEPATITIS C AB W REFLEX TO HCV RNA BY PCR Routine 10/20/2021 16:02 EDT from Last 3 Months or Most Recently Relevant to Health Maintenance Results * HEPATITIS C AB W REFLEX TO HCV RNA BY PCR (10/20/2021 16:02 EDT) Hep C Antibody Negative Negative 10/23/2021 10:57 EDT [facility] Blood VENOUS BLOOD / Unknown 10/20/2021 16:02 EDT 10/21/2021 22:12 EDT us Provider Outr Resulting Lab CHEMISTRY & BLOOD GA S ORDERABLES Final Result [facility] [address] [place] [address] from Last 3 Months or Most Recently Relevant to Health Maintenance Insurance [facility] [employer] Advance Directives For more information, please contact: [phone] Documents on File Type Date Recorded Patient Airline Station Agent Expl anation Advance 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 Default/Not Discussed Care Teams Manager Banquet Relationship Specialty Start Date End Date Slade Tran MD [facility] [place] [address] PCP - General 11/12/22
--- OUTSIDE RECORDS SUMMARY | 2024-06-08 12:43 | XMS_ITS | Encounter Summary ---
Author Organization [facility] Address [address] [place] [address] Care Team Providers Care Guest Services Manager Name Role Phone Jorge Chauhan MD Primary Care Provider Reason for Visit * Reason Onset Date Comments Other 10/26/2021 Encounter Details Date Type Department Care Team (Late st Contact Info) Description 10/26/2021 Telephone [facility] General Surgery - [address] [id number] Ollie [place] MD [address] [facility], [address] [place] [address] Other Social History Tobacco Use [...] Becky Levy RN documented in this encounter Miscellaneous Notes [...] on filedocumented in this encounter Care Teams Guest Services Manager Relationship Specialty Start Date End Date Jorge Chauhan MD [address] [place] [address] PCP - General Family Medicine - Primary Care 10/18/21 11/22/21 documented as of this encounter
--- OUTSIDE RECORDS SUMMARY | 2024-06-08 12:43 | XMS_ITS | Encounter Summary ---
Author Organization [facility] Address [address] [place] [address] Care Team Providers Care Occupational Health Nurse Supervisor Name Role Phone Jorge Chauhan MD Primary Care Provider Reason for Visit * Reason Onset Date Comments Pre-visit Orders 10/20/2021 Labs Only 10/20/2021 Encounter Details Date Type Department Care Team (Late st Contact Info) Description 10/20/2021 Telephone [facility] General Surgery - [facility] [address] [place], [place] [id number] Ollie [place] MD [address] [facility], [address] [place] [address] Pre-visit Orders; Labs Only Social [...] glasses? Answer Date of Assessment Author No 07/31/2021 20:00 EST Talita, Ang Futi, RN * Do you have serious difficulty walking or climbing stairs? (5 years old or older) Answer Date of Assessment Author No 07/31/2021 20:00 Cedrick Sellers RN * Do you have difficulty dressing or bathing? (5 years old or older) Answer Date of Assessment Author No 07/31/2021 20:00 Cedrick Sellers RN * Because of a physical, mental, or emotional condition, do you have difficulty doing errands alone such as visiting a doctor's office or shopping? (15 years old or older) Answer Date of Assessment Author No 07/31/2021 20:00 Cedrick Sellers RN documented as of this encounter Mental Status * Because of a physical, mental, or emotional condition, do you have serious difficulty concentrating, remembering, or making decisions? (5 years old or older) Answer Entry Date Author No 07/31/2021 20:00 Cedrick Sellers RN documented in this encounter Miscellaneous Notes * Telephone Encounter - Elena Mayorga RN - 10/20/2021 1031 EDT Orders faxed as requested. * Telephone Encounter - Deanne Ozuna - 10/20/2021 1005 EDT Fax patient's orders to fax # [phone] as patient has an appointment today. documented in this encounter Plan of Treatment Not on file documented as of this encounter Visit Diagnoses Not on filedocumented in this encounter Care Teams Occupational Health Nurse Supervisor Relationship Specialty Start Date End Date Jorge Chauhan MD [address] [place] [address] PCP - General Family Medicine - Primary Care 10/18/21 11/22/21 documented as of this encounter
--- OUTSIDE RECORDS SUMMARY | 2024-06-08 12:43 | XMS_ITS | Encounter Summary ---
Author Organization [facility] Address [address] [place] [address] Care Team Providers Care Lead Driver Name Role Phone DioJovani franks Primary Care Provider [phone] Reason for Visit * Reason Onset Date Comments COVID-19 09/26/2021 COVID-19 10/01/2021 scheduling Encounter Details Date Type Department Care Team (Late st Contact Info) Description 09/26/2021 Telephone [facility] - [employer] [address] [place] [address] Ollie [place] MD [address] [facility], [address] [place] [address] COVID-19; COVID-19 (scheduling) Social History [...] Cedrick Sellers RN * Do you have serious difficulty [...] 10/01/2021 1431 EDT Patient is going to [facility] to get COVID-19 testing prior to procedure on 10/25. Retail And Promotions Coordinator explained to patient they need to be tested on 10/22 in order to get results back in time. Retail And Promotions Coordinator faxed order. * Telephone Encounter - Karon Phan - 10/01/2021 1056 EDT Called patient to schedule COVID-19 testing. Left message requesting a call back at # [phone].Patient will need to be tested on 10/22, 3 days prior to procedure on 10/25. This is our 2nd attempt at calling the patient. * Telephone Encounter - Alicja Hope - 09/30/2021 1215 EDT MyChart message to patient regarding scheduling. * Telephone Encounter - Philip Martinez - 09/26/2021 1835 EDT Called patient to schedule COVID-19 testing. Requested a call back @[phone]. This is our 1st attempt at contacting the patient. documented in this encounter Plan of Treatment Not on file documented as of this encounter Visit Diagnoses Not on filedocumented in this encounter Care Teams Lead Driver Relationship Specialty Start Date End Date Jovani Wharton DO PCP - General 10/11/16 10/17/21 documented as of this encounter
--- OUTSIDE RECORDS SUMMARY | 2024-06-08 12:43 | XMS_ITS | Encounter Summary ---
Author Organization [facility] Address [address] [place] [address] Care Team Providers Care Piece Worker Name Role Phone oJrge Chauhan MD Primary Care Provider Encounter Details Date Type Department Care Team (Late st Contact Info) Description 10/20/2021 Orders Only [facility] General Surgery - [place] [address] [place] [address] Elena Mayorga RN [address] [place] [address] Paraesophageal hernia (Primary Dx) Social History Tobacco [...] Cedrick Sellers RN documented in this encounter Plan of Treatment Not on file documented as of this encounter Visit Diagnoses Diagnosis Paraesophageal hernia- Primary Diaphragmatic hernia without mention of obstruction or gangrene documented in this encounter Care Teams Piece Worker Relationship Specialty Start Date End Date Jorge Chauhan MD [address] [place] [address] PCP - General Family Medicine - Primary Care 10/18/21 11/22/21 documented as of this encounter
--- OUTSIDE RECORDS SUMMARY | 2024-06-08 12:43 | XMS_ITS | Encounter Summary ---
Author Organization [facility] Address [address] [place] [address] Care Team Providers Care Express Manager Name Role Phone Jorge Chauhan MD Primary Care Provider Encounter Details Date Type Department Care Team (Latest Contact Info) Description 10/21/2021 0:30 EDT - 10/21/2021 23:59 EDT Hospital Encounter [facility] Pre-Surgical Testing [address] [place], [place] [id number] Discharge Disposition: Home or Self Care Social [...] Cedrick Sellers RN documented in this encounter Medications at [...] Daily Max: 8 mg 10 Tablet 10/26/2021 2 ondansetron (ZOFRAN-ODT) 4 mg disintegrating tablet Take 1 Tablet by mouth every 8 hours as needed for Nausea. 15 Tablet 2 10/26/2021 2 ondansetron (ZOFRAN-ODT) 4 mg disintegrating tablet Take 1 Tablet by mouth every 8 hours as needed for Nausea. 15 Tablet 2 10/26/2021 2 documented as of this encounter Discharge Disposition Disposition Code Departure Means Destination Home or Self Care documented in this encounter Progress Notes * Garo Ramírez RN - 10/21/2021 0030 EDT COVID 19 [...] Location: Covid test plan for 10/22/21 at [facility]. Vaccination Status: _x__ Pt states fully vaccinated, __x_ Verified in chart ___ Pt states unvaccinated -Do not instruct patient regarding COVID testing, let [facility] coordinate this -Communicate status on yellow form [...] instruct them to call us back at [phone] to report symptoms Visitor Policy: Surgical & [...] adults and pedi. (Exception: Cancer Center and [facility] Infusion- 1 support person) As a reminder, all support people are will be required to wear a mask that covers their nose and mouth for the entire time they are in the building. Anyone who cannot or will not wear a mask will be asked to leave. documented in this encounter OR Notes * Preprocedure Instructions - Garo Ramírez RN - 10/21/2021 0030 EDT Mathew Mendez [...] 40 mg by mouth daily. x GARO RAMÍREZ RN documented in this encounter Plan of [...] may reflect changes made after this encounter. amLODIPine (NORVASC) 10 mg tablet Take 1 Tablet by mouth daily. omeprazole (PRILOSEC) 40 mg capsule Take 1 Capsule by mouth daily. added in this encounter Care Teams Express Manager Relationship Specialty Start Date End Date Jorge Chauhan MD [address] [place] [address] PCP - General Family Medicine - Primary Care 10/18/21 11/22/21 documented as of this encounter
--- OUTSIDE RECORDS SUMMARY | 2024-06-08 12:43 | XMS_ITS | Encounter Summary ---
Author Organization [facility] Address [address] [place] [address] Care Team Providers Care Production Line Welder Name Role Phone Jorge Chauhan MD Primary Care Provider Reason for Visit * Reason Onset Date Comments Follow-up Diagnostic PSG 10/27/2021 Encounter Details Date Type Department Care Team (Late st Contact Info) Description 10/27/2021 Telephone [facility] General Surgery - [address] [address] Ollie [place] MD [address] [place] [address], [address] [place] [address] Follow-up Diagnostic PSG Social History [...] on filedocumented in this encounter Care Teams Production Line Welder Relationship Specialty Start Date End Date Jorge Chauhan MD [address] [place] [address] PCP - General Family Medicine - Primary Care 10/18/21 11/22/21 documented as of this encounter
--- OUTSIDE RECORDS SUMMARY | 2024-06-08 12:43 | XMS_ITS | Encounter Summary ---
Author Organization [facility] Address [address] [place] [address] Care Team Providers Care Congressional Representative Name Role Phone Jorge Chauhan MD Primary Care Provider Encounter Details Date Type Department Care Team (Late st Contact Info) Description 10/24/2021 Abstract [facility] General Surgery - [address] [address] Ollie [place] MD [address] [place] [address], [address] [place] [address] Social History Tobacco Use Types [...] on filedocumented in this encounter Care Teams Congressional Representative Relationship Specialty Start Date End Date Jorge Chauhan MD [address] [place] [address] PCP - General Family Medicine - Primary Care 10/18/21 11/22/21 documented as of this encounter
--- OUTSIDE RECORDS SUMMARY | 2024-06-08 12:43 | XMS_ITS | Encounter Summary ---
Author Organization [facility] Address [address] [place] [address] Care Team Providers Care Dovetail Machine Operator Name Role Phone Jovani Wharton Primary Care Provider [phone] Reason for Visit * Reason Onset Date Comments Other 08/14/2021 Encounter Details Date Type Department Care Team (Late st Contact Info) Description 08/14/2021 Telephone [facility] General Surgery - [facility] [address] [place], [place] [phone] Ollie [place] MD [address] [facility], [address] [place] [address] Other Social History Tobacco Use [...] Cedrick Sellers RN documented in this encounter Ordered Prescriptions Prescription Sig Dispense Quantity Refills Last Filled Start Date End Date traMADol (ULTRAM) 50 mg tablet Take 1 [...] documented as of this encounter Care Teams Dovetail Machine Operator Relationship Specialty Start Date End Date Jovani Wharton DO PCP - General 10/11/16 10/17/21 documented as of this encounter
--- OUTSIDE RECORDS SUMMARY | 2024-06-08 12:43 | XMS_ITS | Encounter Summary ---
Author Organization [facility] Address [address] [place] [address] Care Team Providers Care Arm Maker Name Role Phone Jorge Chauhan MD Primary Care Provider Reason for Visit * Auth/Cert Specialty Diagnoses / Procedures [facility] Referred To Contact Diagnoses Paraesophageal hernia Procedures ME LAP, REPAIR PARAESOPHAGEAL HERNIA, INCL FUNDOPLASTY W/ MESH Laparoscopic paraesophageal hernia repair with mesh Referral ID Status Reason Start Date Expiration Date Visits Re quested Visits Authorized [id number] 10/05/2021 05/26/2022 1 1 Encounter Details Date Type Department Care Team (Late st Contact Info) Description 10/25/2021 7:25 EDT - 10/25/2021 11:21 EDT Surgery [facility] OR [address] [place] [id number] Ollie Lee MD [address] [place] [address], [facility], [address] [place] [address] Laparoscopic paraesophageal hernia repair with mesh [96005 (CPT??)] Surgery Details Date/Time Status Location OR Service Patient Class Case Class Case Type Trauma Case? 10/25/2021 0725 Posted [facility] OR MOR 14 General Extended Stay [...] Becky Levy RN documented in this encounter Discharge Instructions * Discharge Instr [...] 10/26/2021 2 documented as of this encounter Ordered Prescriptions Prescription Sig Dispense Quantity Refills Last Filled Start Date End Date HYDROmorphone (DILAUDID) 2 mg tablet Take 1 [...] for Nausea. 15 Tablet 2 10/26/2021 2 HYDROmorphone (DILAUDID) 2 mg tablet Take 1 Tablet by mouth every 6 hours as needed for Pain. Daily Max: 8 mg 10 Tablet 10/26/2021 2 ondansetron (ZOFRAN-ODT) 4 mg disintegrating tablet Take 1 Tablet by mouth every 8 hours as needed for Nausea. 15 Tablet 2 10/26/2021 2 documented in this encounter Discharge Disposition Disposition Code Departure Means Destination Home or Self [facility] documented in this encounter Progress Notes * MarcusfreidaWillieMorelia, RT - 10/26/2021 1005 EDT Respiratory Consult/Progress [...] summarize, he presented to the hospital in [place] with a paraesophageal hernia that was symptomatic for him. The [facility]'s tendons surgeon that was covering there [...] disease) Stage IV, followed by nephrology @ [facility], no restrictions per pt ??? Diverticulitis Around [...] Consented Jesus Herndon MD 10/25/2021 6:14 Surgery Direct Marketing Analyst Pager #[phone] Cosigned by Ollie Lee MD at 10/27/2021 15:03 EDT documented in this encounter Nursing Notes * Mary Banks, RN - 10/25/2021 0642 EDT Preop Covid [...] Toupet fundoplication. SURGEON: Ollie Lee MD, FACS SALES HUNTER: Jesus Herndon MD ANESTHESIA: General endotracheal and [...] the esophagus, which was encircled with a [place] drain for retraction. Mediastinal dissection of the [...] Ollie Lee MD FACS / CD Confirmation: [id number] Dictation ID: [id number] cc: Ollie Lee MD FACS, [facility] - Surgery, [address] [place] [address] Jorge Chauhan MD, [place] [address] Jesus Herndon MD, [facility] - House Staff Mail, [address] [place] [address] documented in this encounter Miscellaneous Notes * [...] EDT BRIEF OP NOTE Surgeon: Dr. Lee Cartography/Mapping Technician: Dr. Herndon Pre-op diagnosis: Paraesophageal hernia Post-op [...] 4.00 - 10.40 K/cmm 10/26/2021 9:48 T [facility] RBC 3.20(L) 4.36 - 5.78 M/cmm 10/26/2021 9:48 [facility] Hemoglobin 9.9(L) 13.8 - 17.3 gm/dL 10/26/2021 9:48 [facility] HCT 29.8(L) 39.5 - 50.2 % 10/26/2021 9:48 [facility] MCV 93 81 - 95 fl 10/26/2021 9:48 [facility] MCH 30.9 27.6 - 33.0 pg 10/26/2021 9:48 [facility] MCHC 33.2 32.8 - 36.4 gm/dL 10/26/2021 9:48 [facility] RDW-CV 15.5(H) <14.2 % 10/26/2021 9:48 [facility] RDW-SD 52.9(H) <46.0 fl 10/26/2021 9:48 [facility] PLT 153 141 - 377 K/cmm 10/26/2021 9:48 [facility] MPV 11.8 9.5 - 12.7 fl 10/26/2021 9:48 [facility] Blood VENOUS BLOOD / Unknown Venipuncture / Unknown 10/26/2021 9:27 EDT 10/26/2021 9:42 EDT us Jesus Herndon MD HEMATOLOGY & PF4 ORDERABLES Final Result Performing Organization Address City/[facility]/ZIP Co de Phone Number [facility] [address] [place] [address] * (ABNORMAL) COMPLETE BLOOD COUNT (10/25/2021 18:32 EDT) WBC 10.43(H) 4.00 - 10.40 K/cmm 10/25/2021 18:48 EDT [facility] RBC 3.33(L) 4.36 - 5.78 M/cmm 10/25/2021 18:48 EDT [facility] Hemoglobin 10.2(L) 13.8 - 17.3 gm/dL 10/25/2021 18:48 EDT [facility] HCT 29.9(L) 39.5 - 50.2 % 10/25/2021 18:48 EDT [facility] MCV 90 81 - 95 fl 10/25/2021 18:48 EDT [facility] MCH 30.6 27.6 - 33.0 pg 10/25/2021 18:48 EDT [facility] MCHC 34.1 32.8 - 36.4 gm/dL 10/25/2021 18:48 T [facility] RDW-CV 15.1(H) <14.2 % 10/25/2021 18:48 EDT [facility] RDW-SD 49.8(H) <46.0 fl 10/25/2021 18:48 EDT [facility] PLT 159 141 - 377 K/cmm 10/25/2021 18:48 EDT [facility] MPV 11.3 9.5 - 12.7 fl 10/25/2021 18:48 T [facility] Blood VENOUS BLOOD / Unknown Venipuncture / Unknown 10/25/2021 18:32 EDT 10/25/2021 18:36 EDT us Jesus Herndon MD HEMATOLOGY & PF4 ORDERABLES Final Result [facility] [address] [place] [address] * (ABNORMAL) COMPLETE BLOOD COUNT AND DIFFERENTIAL (10/25/2021 12:22 EDT) WBC 12.50(H) 4.00 - 10.40 K/cmm 10/25/2021 12:34 [facility] RBC 3.19(L) 4.36 - 5.78 M/cmm 10/25/2021 12:34 [facility] Hemoglobin 9.9(L) 13.8 - 17.3 gm/dL 10/25/2021 12:34 [facility] HCT 29.4(L) 39.5 - 50.2 % 10/25/2021 12:34 [facility] MCV 92 81 - 95 fl 10/25/2021 12:34 [facility] MCH 31.0 27.6 - 33.0 pg 10/25/2021 12:34 [facility] MCHC 33.7 32.8 - 36.4 gm/dL 10/25/2021 12:34 [facility] RDW-CV 15.2(H) <14.2 % 10/25/2021 12:34 [facility] RDW-SD 51.7(H) <46.0 fl 10/25/2021 12:34 [facility] PLT 161 141 - 377 K/cmm 10/25/2021 12:34 [facility] MPV 11.1 9.5 - 12.7 fl 10/25/2021 12:34 [facility] % Neutrophils 87.5 % 10/25/2021 12:34 [facility] % Lymphocytes 3.7 % 10/25/2021 12:34 [facility] % Monocytes 6.6 % 10/25/2021 12:34 [facility] % Eosinophils 1.4 % 10/25/2021 12:34 [facility] % Basophils 0.3 % 10/25/2021 12:34 [facility] % Immature Grans 0.5 % 10/26/19 12:34 EDT [facility] Absolute Neutrophils 10.95(H) 2.20 - 8.85 K/cmm 10/25/2021 12:34 T [facility] Absolute Lymphocytes 0.46(L) 1.09 - 3.30 K/cmm 10/25/2021 12:34 EDT [facility] Absolute Monocytes 0.82(H) 0.10 - 0.80 K/cmm 10/25/2021 12:34 EDT [facility] Absolute Eosinophils 0.17 0.03 - 0.61 K/cmm 10/25/2021 12:34 EDT [facility] ABS Basophils 0.04 0.01 - 0.11 K/cmm 10/25/2021 12:34 EDT [facility] Absolute Immature Grans 0.06 0.00 - 0.06 K/cmm 10/25/2021 12:34 EDT [facility] Type of Differential: Auto 10/25/2021 12:34 T [facility] Blood VENOUS BLOOD / Unknown Venipuncture / Unknown 10/25/2021 12:22 EDT 10/25/2021 12:24 EDT us Jesus Herndon MD PACKAGES & DNA PROBE ORDERA BLES Final Result Performing Organization Address City/State/[facility] Co de Phone Number [facility] [address] [place] [address] documented in this encounter Visit Diagnoses Diagnosis [...] Preprocedure 0716 (Given - Provider: Mary Banks LOYD) ibuprofen (MOTRIN) tablet 600 mg (COMPLETED) 600 mg, oral, PRE-OP ONCE, 1 dose, On Sat10/25/21 at 0645, Routine, Preprocedure 0644 (Given - Provider: Mary Banks, LOYD) metoprolol TARtrate (LOPRESSOR) tablet 12.5 mg 12.5 mg, oral, 2 TIMES DAILY, First dose on Sat10/25/21 at 2100, Until Discontinued, Routine 2056 (Given - Provider: Norma Mott, LOYD) 0903 (Given - Provider: Mame Nichole, RN) pantoprazole (PROTONIX) injection 40 mg 40 mg, intravenous, DAILY, First dose on Sat10/25/21 at 1500, Until Discontinued, Routine 1551 (Given - Provider: Becky Levy RN) 0903 (Given - Provider: Mame Nichole, [...] Mame Nichole, LOYD)1231 (Given - Provider: Mame Nichole RN) HYDROmorphone [...] Becky Levy RN)2227 (Given - Provider: Norma Mott, RN) 0616 (Given - Provider: Norma Mott [...] 10/26/2021 documented in this encounter Care Teams Arm Maker Relationship Specialty Start Date End Date Jorge Chauhan MD [address] [place] [address] PCP - General Family Medicine - Primary Care 10/18/21 11/22/21 documented as of this encounter
--- OUTSIDE RECORDS SUMMARY | 2024-06-08 12:43 | XMS_ITS | Encounter Summary ---
Author Organization [facility] Address [address] [place] [address] Care Team Providers Care R&D Engineer Name Role Phone Luis Lauren MD Primary Care Provider [phone] Reason for Visit * Reason Comments Post-OP Follow Up [facility] Encounter Details Date Type Department Care Team (Late st Contact Info) Description 11/23/2021 10:45 EDT Post-op Visit [facility] General Surgery - [address] [id number] Ollie Lee MD [address] [place] [address], [address] [place] [address] Paraesophageal hernia (Primary Dx) Social [...] Answer Entry Date Author No 10/25/2021 16:00 EDBecky Mccoy RN documented in this encounter Progress Notes * Mukesh Etienne MA - 11/23/2021 1045 EDT [facility] Patient Name: Mathew Mendez [...] gangrene documented in this encounter Care Teams R&D Engineer Relationship Specialty Start Date End Date Luis Lauren MD [address] [place] [address] PCP - General Family Medicine - Primary Care 11/23/21 11/11/22 documented as of this encounter
--- OUTSIDE RECORDS SUMMARY | 2024-06-08 12:43 | XMS_ITS | Encounter Summary ---
Author Organization [facility] Address [address] [place] [address] Care Team Providers Care Materials Planning Manager Name Role Phone Jorge Chauhan MD Primary Care Provider Reason for Visit * Reason Onset Date Comments Follow-up Diagnostic PSG 10/24/2021 Encounter Details Date Type Department Care Team (Late st Contact Info) Description 10/24/2021 Telephone [facility] General Surgery - [address] [id number] Ollie Lee MD [address] [place] [address], [address] [place] [address] Follow-up Diagnostic PSG Social History [...] encounter Miscellaneous Notes * Telephone Encounter - Traic Barfield - 10/24/2021 0814 EDT Left message to return my call concerning covid and check in time on documented in this encounter Plan of Treatment Not on file documented as of this encounter Visit Diagnoses Not on filedocumented in this encounter Care Teams Materials Planning Manager Relationship Specialty Start Date End Date Jorge Chauhan MD [address] [place] [address] PCP - General Family Medicine - Primary Care 10/18/21 11/22/21 documented as of this encounter
--- OUTSIDE RECORDS SUMMARY | 2024-06-08 12:43 | XMS_ITS | Encounter Summary ---
Author Organization [facility] Address [address] [place] [address] Care Team Providers Care Stone Operator Name Role Phone Jorge Chauhan MD Primary Care Provider Luis Lauren MD Primary Care Provider [phone] Slade Tran MD Primary Care Provider [phone] Encounter Details Date Type Department Care Team (Late st Contact Info) Description 10/21/2021 Lab Requisition [facility] Pathology & Laboratory Medicine - [facility] [address] [place], [place] [address] Outr Resulting Lab, Provider Social History Tobacco [...] C Antibody Negative Negative 10/23/2021 10:57 EDT [facility] Blood VENOUS BLOOD / Unknown 10/20/2021 16:02 EDT 10/21/2021 22:12 EDT us Provider Outr Resulting Lab CHEMISTRY & BLOOD GA S ORDERABLES Final Result Performing Organization Address City/State/[facility] Co de Phone Number [facility] [address] [place] [address] documented in this encounter Visit Diagnoses Not on filedocumented in this encounter Care Teams Stone Operator Relationship Specialty Start Date End Date Jorge Chauhan MD [address] [place] [address] PCP - General Family Medicine - Primary Care 10/18/21 11/22/21 Luis Lauren MD [facility] [place] [address] PCP - General Family Medicine - Primary Care 11/23/21 11/11/22 Slade Tran MD [address] [place] [address] PCP - General 11/12/22 documented as of this encounter
--- OUTSIDE RECORDS SUMMARY | 2024-06-08 12:43 | XMS_ITS | Encounter Summary ---
Author Organization [facility] Address [address] [place] [address] Care Team Providers Care Ghost Writer Name Role Phone Jorge Chauhan MD Primary Care Provider Reason for Visit * Reason Onset Date Comments Other 10/20/2021 Encounter Details Date Type Department Care Team (Late st Contact Info) Description 10/20/2021 Telephone [facility] General Surgery - [facility] [address] [place], [place] [id number] Ollie Lee MD [address] [facility], [address] [place] [address] Other Social History Tobacco Use [...] Encounter - Elena Mayorga RN - 10/20/2021 1048 EDT Spoke with Roxanna. Advised I did not check chart enough to see Mathew is having COVID testing at [facility]. * Telephone Encounter - Pamela Doty - 10/20/2021 1040 EDT [facility] calling to say they received orders for labs, but cannot do Covid 19 test there. They can do other labs, but said Covid test needs to be scheduled thru the Provider. documented in this encounter Plan of Treatment Not on file documented as of this encounter Visit Diagnoses Not on filedocumented in this encounter Care Teams Ghost Writer Relationship Specialty Start Date End Date Jorge Chauhan MD [address] [place] [address] PCP - General Family Medicine - Primary Care 10/18/21 11/22/21 documented as of this encounter
--- OUTSIDE RECORDS SUMMARY | 2024-06-08 12:43 | XMS_ITS | Encounter Summary ---
Author Organization [facility] Address [address] [place] [address] Care Team Providers Care Director Financial Planning Name Role Phone Jorge Chauhan MD Primary Care Provider Luis Lauren MD Primary Care Provider [phone] Slade Tran MD Primary Care Provider [phone] Encounter Details Date Type Department Care Team (Late st Contact Info) Description 10/21/2021 Lab Requisition [facility] Pathology & Laboratory Medicine - [facility] [address] [place], [place] [address] Outr Resulting Lab, Provider Social History Tobacco [...] AND ANTIBODY, 4TH GENERATION (10/20/2021 16:02 EDT) HIV 1 and 2 Antibody/p24 Antigen, 4th Generation Negative Negative 10/23/2021 11:00 EDT [facility] Comment:If acute HIV-1 infec tion is suspected in a high risk patient, submit plasma specimen for HIV-1 RNA quantitation test. Blood VENOUS BLOOD / Unknown 10/20/2021 16:02 EDT 10/21/2021 22:12 EDT Narrative [facility] - 10/23/2021 11:00 EDT Fourth Generation assay performed on the Siemens Centaur XPT. us Provider Outr Resulting Lab IMMUNOLOGY AND SEROL OGY ORDERABLES Final Result [facility] [address] [place] [address] documented in this encounter Visit Diagnoses Not on filedocumented in this encounter Care Teams Director Financial Planning Relationship Specialty Start Date End Date Jorge Chauhan MD [address] [place] [address] PCP - General Family Medicine - Primary Care 10/18/21 11/22/21 Luis Lauren MD [address] [place], [place] [address] PCP - General Family Medicine - Primary Care 11/23/21 11/11/22 Slade Tran MD [address] [place], [place] [address] [address] PCP - General 11/12/22 documented as of this encounter
--- OUTSIDE RECORDS SUMMARY | 2024-06-08 12:43 | XMS_ITS | Encounter Summary ---
Author Organization [facility] Address [address] [place] [address] Care Team Providers Care Pricing/Signage Team Member Name Role Phone Jorge Chauhan MD Primary Care Provider Reason for Visit * Auth/Cert Specialty Diagnoses / Procedures [facility] Referred To Contact Diagnoses Paraesophageal hernia Procedures OR LAP, REPAIR PARAESOPHAGEAL HERNIA, INCL FUNDOPLASTY W/ MESH Laparoscopic paraesophageal hernia repair with mesh Referral ID Status Reason Start Date Expiration Date Visits Re quested Visits Authorized [id number] 10/05/2021 05/26/2022 1 1 Encounter Details Date Type Department Care Team (Late st Contact Info) Description 10/25/2021 7:29 EDT Anesthesia Event [facility] [place] OR [address] [place], [place] [phone] Micah Santoro MD [address] [place] [address] Jennifer Alejo MD [address] [place] [address] Anesthesia Record Procedure Summary Procedure Name [...] Jennifer Alejo MD 10/26/21 1233 by Mame Nichole RN Urethral Catheter 10/25/21; 0845; Inse rted by RN; Intraoperative monitoring; Double-lumen, Non-latex, Straight-tip; 16 fr; 10 ml; Yes; 10/25/21; 1105 10/25/21 0845 by Karen Reese, LOYD 10/25/21 1105 by Karen Reese, LOYD documented [...] of Assessment Author No 07/31/2021 20:00 EST Cedrick Sanon RN documented as of this encounter Mental Status * Because of a physical, mental, or emotional condition, do you have serious difficulty concentrating, remembering, or making decisions? (5 years old or older) Answer Entry Date Author No 10/25/2021 16:00 EDT Becky Levy RN documented in this encounter OR Notes * Anesthesia Postprocedure Evaluation - Jennifer Alejo MD - 10/25/2021 1151 EDT Patient: Mathew Mendez Vital signs were reviewed with the recovery nurse. [facility] Vit[facility] Value Taken Time BP 10/25/21 1151 [...] during procedure: OR Anesthesiologist: Micah Santoro MD Resident/[employer]: Jennifer Alejo MD Performed: resident/[employer]/AA Indications and Patient Condition Indications for airway [...] and paraesophageal hernia who originally presented to [facility] with symptoms of his hernia and was treated with ex lap and gastropexy. Presenting now for laparoscopic paraesophageal hernia repair with mesh, possible open. -Past surgical hx of colectomy, ex lap, TKA -Allergy to morphine -No hx of tobacco use, has not used alcohol since 01/2021 -FINANCIAL SERVICES SPECIALIST meds are allopurinol, amlodipine, lisinopril, metoprolol, omeprazole [...] disease) Stage IV, followed by nephrology @ [facility], no restrictions per pt ??? [...] EDT documented in this encounter Results * OR AN ELECTIVE ENDOTRACHEAL AIRWAY (10/25/2021 7:41 EDT) Narrative Jennifer Alejo MD - 10/25/2021 7:41 EDT Jennifer Alejo MD ? 10/25/2021 ??8:08 Airway Date/Time: 10/25/2021 7:41 Urgency: elective General Information and Staff Patient location during procedure: OR Anesthesiologist: Micah Santoro MD Resident/[employer]: Jennifer Alejo MD Performed: resident/[employer]/AA Indications and Patient Condition Indications for airway [...] 22 Number of attempts at approach: 1 us Micah Santoro MD ANESTHESIA ORDERABLES Final R esult documented in this encounter Visit Diagnoses Not [...] mg documented in this encounter Care Teams Pricing/Signage Team Member Relationship Specialty Start Date End Date Jorge Chauhan MD [address] [place] [address] [place] [address] PCP - General Family Medicine - Primary Care 10/18/21 11/22/21 documented as of this encounter
--- OUTSIDE RECORDS SUMMARY | 2024-06-08 12:43 | XMS_ITS | Encounter Summary ---
Author Organization [facility] Address [address] [place] [address] Care Team Providers Care Networker Name Role Phone Jovani Wharton DO Primary Care Provider [phone] Reason for Visit * Reason Comments Follow-up hospital f/u * Consult (See Order Priority) - Order Cancelled Specialty Diagnoses / Procedures Referred By Devaughn bobo Referred To Contact General Surgery Diagnoses Paraesophageal hernia Ashlie Greene MD Phone: tel: fax: Ollie Lee MD Phone: tel: fax: Referral ID Status Reason Start Date Expiration Date Visits Requested Visits Authorized [id number] Order Cancelled Specialty Services Required 08/11/2021 1 1 Encounter Details Date Type Department Care Team (Late st Contact Info) Description 08/25/2021 10:45 EDT Office Visit [facility] General Surgery - [address] [address] Ollie Lee MD [address] [facility], [address] [place] [address] Paraesophageal hernia (Primary Dx) Social [...] Cedrick Sellers RN documented in this encounter Progress Notes * Ollie Lee MD - 08/25/2021 1045 EDT Division of General Surgery Date of Service: 08/25/2021 PROBLEM: 1. Paraesophageal hernia HISTORY OF PRESENT ILLNESS: This is a 66 y.o. male follows up with me today after being discharged from the hospital for his paraesophageal hernia. Just to summarize, he presented to the hospital in [place] with a paraesophageal hernia that was symptomatic for him. The [facility]'s tendons surgeon that was covering there [...] willing to proceed. We will forego manometry. Sheryl perform a partial wrap to minimize his [...] Some of this note was transcribed with [employer] dictating software. While it was proofread, it [...] may reflect changes made after this encounter. cyanocobalamin, vitamin B-12, 5,000 mcg tablet, IR [...] 08/25/2021 documented in this encounter Care Teams Networker Relationship Specialty Start Date End Date Jovani Wharton DO PCP - General 10/11/16 10/17/21 documented as of this encounter
--- OUTSIDE RECORDS SUMMARY | 2024-06-08 12:43 | XMS_ITS | Encounter Summary ---
Author Organization [facility] Address [address] [place] [address] Care Team Providers Care Pump Attendant Name Role Phone Luis Lauren MD Primary Care Provider [phone] [phone] Reason for Referral * Medication Prior Authorization - Closed Specialty Diagnoses / Procedures Referred By Devaughn t Referred To Contact Ollie Lee MD [address] [place] [id number] Phone: tel: fax: Referral ID Status Reason Start Date Expiration Date Visits Re quested Visits Authorized [id number] Closed 1 1 Reason for Visit * Reason Onset Date Comments Medications Refill 11/23/2021 Encounter Details Date Type Department Care Team (Late st Contact Info) Description 11/23/2021 Telephone [facility] General Surgery - [address] [address] Ollie Lee MD [address] [place] [phone] Medications Refill Social History Tobacco Use [...] Becky Langford RN documented in this encounter Ordered Prescriptions Prescription Sig Dispense Quantity Refills Last Filled Start Date End Date ondansetron (ZOFRAN-ODT) 4 mg disintegrating tablet Take 1 Tablet by mouth every 8 hours as needed for Nausea. 15 Tablet 2 11/23/2021 ondansetron (ZOFRAN-ODT) 4 mg disintegrating tablet Take 1 Tablet by mouth every 8 hours as needed for Nausea. 15 Tablet 2 11/23/2021 2 documented in this encounter Miscellaneous Notes * Telephone Encounter - Leni Blanchard RN - 11/23/2021 1608 EDT Refilled per request * Telephone Encounter - Traci Barfield - 11/23/2021 1555 EDT ondamestral- [facility] documented in this encounter Plan of [...] documented as of this encounter Care Teams Pump Attendant Relationship Specialty Start Date End Date Luis Lauren MD [address] [place] [address] PCP - General Family Medicine - Primary Care 11/23/21 11/11/22 documented as of this encounter
--- OUTSIDE RECORDS SUMMARY | 2024-06-08 12:43 | XMS_ITS | Encounter Summary ---
Author Organization [facility] Address [address] [place] [address] Care Team Providers Care Propulsion Systems Engineer Name Role Phone Jorge Chauhan MD Primary Care Provider Encounter Details Date Type Department Care Team (Late st Contact Info) Description 10/18/2021 Orders Only [facility] General Surgery - [facility] [address] [place], [place] [id number] Leni Blanchard RN Pre-op evaluation (Primary Dx); [...] gangrene documented in this encounter Care Teams Propulsion Systems Engineer Relationship Specialty Start Date End Date Jorge Chauhan MD [address] [place] [address] PCP - General Family Medicine - Primary Care 10/18/21 11/22/21 documented as of this encounter
--- OUTSIDE RECORDS SUMMARY | 2024-06-08 12:43 | XMS_ITS | Encounter Summary ---
Author Organization [facility] Address [address] [place] [address] Care Team Providers Care Collections Assistant Name Role Phone Luis Lauren MD Primary Care Provider [phone] [phone] Reason for Visit * Reason Onset Date Comments Coordination Of Care 04/13/2022 Encounter Details Date Type Department Care Team (Late st Contact Info) Description 04/13/2022 Telephone [facility] General Surgery - [facility] [address] [place] [address] Alanna Dejesus RN Coordination Of Care Social History Tobacco [...] on filedocumented in this encounter Care Teams Collections Assistant Relationship Specialty Start Date End Date Luis Lauren MD [address] [place] [address] PCP - General Family Medicine - Primary Care 11/23/21 11/11/22 documented as of this encounter
--- OUTSIDE RECORDS SUMMARY | 2024-06-08 12:43 | XMS_ITS | Encounter Summary ---
Author Organization [facility] Address [address] [place] [address] Care Team Providers Care Philosophy And Religion Instructor Name Role Phone Jorge Chauhan MD Primary Care Provider Reason for Visit * Auth/Cert Specialty Diagnoses / Procedures Referred By Contac t Referred To Contact Diagnoses Paraesophageal hernia Procedures IN LAP, REPAIR PARAESOPHAGEAL HERNIA, INCL FUNDOPLASTY W/ MESH Laparoscopic paraesophageal hernia repair with mesh Referral ID Status Reason Start Date Expiration Date Visits Re quested Visits Authorized [id number] 10/05/2021 05/26/2022 1 1 Encounter Details Date Type Department Care Team (Late st Contact Info) Description 10/25/2021 5:47 EDT - 10/26/2021 13:43 EDT Hospital Encounter [facility] Periop Surge Capacity Unit [address] [place] [address] Ollie Lee MD [address] [facility], [facility] [address] [place] [address] Discharge Disposition: Home or Self [...] Discharge Instr - AVS First Page* Sanjuana Ganoa NP - 10/26/2021 10:35 EDT Images from [...] Code Departure Means Destination Home or Self Group Home documented in this encounter Progress Notes * [...] summarize, he presented to the hospital in [place] with a paraesophageal hernia that was symptomatic for him. The [facility]'s tendons surgeon that was covering [...] disease) Stage IV, followed by nephrology @ [facility], no restrictions per pt ??? Diverticulitis [...] Consented Jesus Herndon MD 10/25/2021 6:14 Surgery Straight Ruling Machine Operator Pager #[phone] Cosigned by Ollie Lee MD at 10/27/2021 [...] Toupet fundoplication. SURGEON: Ollie Lee MD, FACS SENIOR ADMINISTRATIVE SUPPORT: Jesus Herndon MD ANESTHESIA: General endotracheal and [...] the esophagus, which was encircled with a [place] drain for retraction. Mediastinal dissection of the [...] Ollie Lee MD FACS / CD Confirmation: [id number] Dictation ID: [id number] cc: Ollie Lee MD [facility], [facility] - Surgery, [address] [place] [address] Jorge Chauhan MD, [place] [address] Jesus Herndon MD, [facility] - House Staff Mail, [address] [place] [address] documented in this encounter Miscellaneous Notes * [...] EDT BRIEF OP NOTE Surgeon: Dr. Lee Radio Board Operator: Dr. Herndon Pre-op diagnosis: Paraesophageal hernia Post-op [...] 8.88 4.00 - 10.40 K/cmm 10/26/2021 9:48 [facility] RBC 3.20(L) 4.36 - 5.78 M/cmm 10/26/2021 9:48 [facility] Hemoglobin 9.9(L) 13.8 - 17.3 gm/dL 10/26/2021 9:48 [facility] HCT 29.8(L) 39.5 - 50.2 % 10/26/2021 9:48 [facility] MCV 93 81 - 95 fl 10/26/2021 9:48 [facility] MCH 30.9 27.6 - 33.0 pg 10/26/2021 9:48 [facility] MCHC 33.2 32.8 - 36.4 gm/dL 10/26/2021 9:48 [facility] RDW-CV 15.5(H) <14.2 % 10/26/2021 9:48 [facility] RDW-SD 52.9(H) <46.0 fl 10/26/2021 9:48 [facility] PLT 153 141 - 377 K/cmm 10/26/2021 9:48 [facility] MPV 11.8 9.5 - 12.7 fl 10/26/2021 9:48 [facility] Blood VENOUS BLOOD / Unknown Venipuncture / Unknown 10/26/2021 9:27 EDT 10/26/2021 9:42 EDT us Jesus Herndon MD HEMATOLOGY & PF4 ORDERABLES Final Result [facility] [address] [place] [address] * (ABNORMAL) COMPLETE BLOOD COUNT (10/25/2021 18:32 EDT) WBC 10.43(H) 4.00 - 10.40 K/cmm 10/25/2021 18:48 [facility] RBC 3.33(L) 4.36 - 5.78 M/cmm 10/25/2021 18:48 T [facility] Hemoglobin 10.2(L) 13.8 - 17.3 gm/dL 10/25/2021 18:48 T [facility] HCT 29.9(L) 39.5 - 50.2 % 10/25/2021 18:48 [facility] MCV 90 81 - 95 fl 10/25/2021 18:48 EDT [facility] MCH 30.6 27.6 - 33.0 pg 10/25/2021 18:48 [facility] MCHC 34.1 32.8 - 36.4 gm/dL 10/25/2021 18:48 [facility] RDW-CV 15.1(H) <14.2 % 10/25/2021 18:48 [facility] RDW-SD 49.8(H) <46.0 fl 10/25/2021 18:48 [facility] PLT 159 141 - 377 K/cmm 10/25/2021 18:48 [facility] MPV 11.3 9.5 - 12.7 fl 10/25/2021 18:48 [facility] Blood VENOUS BLOOD / Unknown Venipuncture / Unknown 10/25/2021 18:32 EDT 10/25/2021 18:36 EDT us Jesus Herndon MD HEMATOLOGY & PF4 ORDERABLES Final Result [facility] [address] [place] [address] * (ABNORMAL) COMPLETE BLOOD COUNT AND DIFFERENTIAL (10/25/2021 12:22 EDT) WBC 12.50(H) 4.00 - 10.40 K/cmm 10/25/2021 12:34 EDT [facility] RBC 3.19(L) 4.36 - 5.78 M/cmm 10/25/2021 12:34 [facility] Hemoglobin 9.9(L) 13.8 - 17.3 gm/dL 10/25/2021 12:34 [facility] HCT 29.4(L) 39.5 - 50.2 % 10/25/2021 12:34 [facility] MCV 92 81 - 95 fl 10/25/2021 12:34 [facility] MCH 31.0 27.6 - 33.0 pg 10/25/2021 12:34 [facility] MCHC 33.7 32.8 - 36.4 gm/dL 10/25/2021 12:34 [facility] RDW-CV 15.2(H) <14.2 % 10/25/2021 12:34 [facility] RDW-SD 51.7(H) <46.0 fl 10/25/2021 12:34 [facility] PLT 161 141 - 377 K/cmm 10/25/2021 12:34 [facility] MPV 11.1 9.5 - 12.7 fl 10/25/2021 12:34 [facility] % Neutrophils 87.5 % 10/25/2021 12:34 [facility] % Lymphocytes 3.7 % 10/25/2021 12:34 [facility] % Monocytes 6.6 % 10/25/2021 12:34 [facility] % Eosinophils 1.4 % 10/25/2021 12:34 [facility] % Basophils 0.3 % 10/25/2021 12:34 [facility] % Immature Grans 0.5 % 10/26/19 12:34 [facility] Absolute Neutrophils 10.95(H) 2.20 - 8.85 K/cmm 10/25/2021 12:34 [facility] Absolute Lymphocytes 0.46(L) 1.09 - 3.30 K/cmm 10/25/2021 12:34 [facility] Absolute Monocytes 0.82(H) 0.10 - 0.80 K/cmm 10/25/2021 12:34 EDT [facility] Absolute Eosinophils 0.17 0.03 - 0.61 K/cmm 10/25/2021 12:34 EDT [facility] ABS Basophils 0.04 0.01 - 0.11 K/cmm 10/25/2021 12:34 EDT [facility] Absolute Immature Grans 0.06 0.00 - 0.06 K/cm 10/25/2021 12:34 EDT [facility] Type of Differential: Auto 10/25/2021 12:34 EDT [facility] Blood VENOUS BLOOD / Unknown Venipuncture / Unknown 10/25/2021 12:22 EDT 10/25/2021 12:24 EDT us Jesus Herndon MD PACKAGES & DNA PROBE ORDERA BLES Final Result Performing Organization Address City/State/[facility] Co de Phone Number [facility] [address] [place] [address] documented in this encounter Visit Diagnoses Diagnosis [...] Sat10/26/21 at 1543, Pain, Routine, Recovery (only) Given [...] Routine, Preprocedure 0645 (Given - Provider: Mary Banks, LOYD) heparin injection 5,000 Units (COMPLETED) 5,000 Units, subcutaneous, PRE-OP ONCE, 1 dose, On Sat10/25/21 at 0645, Routine, Preprocedure 0716 (Given - Provider: Mary Banks, LOYD) ibuprofen (MOTRIN) tablet 600 mg (COMPLETED) 600 mg, oral, PRE-OP ONCE, 1 dose, On Sat10/25/21 at 0645, Routine, Preprocedure 0644 (Given - Provider: Mary Banks, LOYD) metoprolol TARtrate (LOPRESSOR) tablet 12.5 mg 12.5 mg, oral, 2 TIMES DAILY, First dose on Sat10/25/21 at 2100, Until Discontinued, Routine 2055 (Given - Provider: Norma Mott RN) 0903 (Given - Provider: Mame Nichole, LOYD) pantoprazole (PROTONIX) injection 40 mg 40 mg, intravenous, DAILY, First dose on Sat10/25/21 at 1500, Until Discontinued, Routine 1551 (Given - Provider: Becky Levy RN) 0903 (Given - Provider: Mame Nichole, LOYD) Continuous Medication Order 10/24/2021 10/25/2021 10/26/2021 dextrose [...] Shannan Chang RN)1216 (Given - Provider: Shannan Chang, LOYD) HYDROmorphone (DILAUDID) tablet 2-4 mg (COMPLETED) 2-4 mg, oral, EVERY 30 MINUTES PRN, 2 doses, Starting on Sat10/25/21 at 1117, Until Sat10/25/21 at 1355, Pain, Routine, Recovery (only) 1204 (Given - Provider: Shannan Chang, LOYD)1355 (Given - Provider: Shannan Chang RN) HYDROmorphone (DILAUDID) tablet 2-4 mg 2-4 mg, oral, EVERY 4 HOURS PRN, Starting on Sat10/25/21 at 1810, Until Ladan 10/26/21 at 1543, Pain, Routine, Recovery (only) 2057 (Given - Provider: Norma Mott RN) 0116 [...] sodium chloride 0.9 % irrigation 1 10/26/19 22 sterile water (bottle) irrigation 1 022 Nursing Count Last Ordered Date First Orde red Date INSERT IRVIN CATHETER 1 10/25/2021 Discharge Count Last Ordered Date First Orde red Date DISCHARGE PATIENT 1 10/26/2021 documented in this encounter Care Teams Philosophy And Religion Instructor Relationship Specialty Start Date End Date Jorge Chauhan MD [address] [place] [address] PCP - General Family Medicine - Primary Care 10/18/21 11/22/21 documented as of this encounter
--- OUTSIDE RECORDS SUMMARY | 2024-06-08 12:43 | XMS_ITS | Encounter Summary ---
Author Organization [facility] Address [address] [place] [address] Care Team Providers Care Glass Sander Name Role Phone Jovani Wharton Primary Care Provider [phone]- [phone] Encounter Details Date Type Department Care Team (Late st Contact Info) Description 09/26/2021 Orders Only [facility] General Surgery - [address] [id number] Ollie Lee MD [address] [place] [address], [address] [place] [address] Encounter for preoperative screening laboratory [...] documented in this encounter Progress Notes * Luís Morin MD - 09/26/2021 0920 EDT Images from the original note were not included. Ford Villa MD Resident Surgery Progress Notes ?? Signed Date of Service: 08/08/2021 ??9:16 []Hide copied text []Hover for details Surgery Progress Note ?? Admit Date: 07/31/2021 Hospital Day: LOS: 7 days Date of Service: 08/08/2021 ?? Chief Complaint/Procedure: PEH; Transferred from [facility] ?? 24 Hr Events: - NAEON ?? [...] Wt 69.7 kg (153 lb 9.6 oz) [id number]% BMI 24.79 kg/m?? Intake/Output: I&O By Type [...] 200 204 206 ?? BMP: Recent Labs 08/06/21 0744 08/07/21 0512 [...] subsequent??colostomy reversal)??who presents as a transfer from [facility] after presenting with acute onset [...] saw and examined the patient with the surgical manager / blue team on 08/08/2021 16:45. I agree with the findings, assessment, and plan as outlined above. Luís Morin MD 09/29/2021 13:37 * Luís Morin MD - 09/26/2021 0920 EDT Images from the original note were not included. Ashlie Greene MD Resident Surgery Progress Notes ?? Signed Date of Service: 08/09/2021 ??7:43 []Hide copied text []Hover for details Surgery Progress Note ?? Admit Date: 07/31/2021 Hospital Day: LOS: 8 days Date of Service: 08/09/2021 ?? Chief Complaint/Procedure: PEH; Transferred from [facility] ?? 24 Hr Events: - NAEON ?? [...] RUE PICC ?? Labs: CBC: Recent Labs 08/07/2151108/08/21 0604 08/09/21 0513 WBC 5.83 6.05 7.59 [...] subsequent??colostomy reversal)??who presents as a transfer from [facility] after presenting with acute onset abdominal pain secondary to an incarcerated paraesophageal hernia. He was taken??to the OR on 07/24 for an exploratory laparotomy, lysis of adhesions, reduction of his gastric contents, and suture gastropexy. Transferred to [facility] due to ongoing symptoms with [...] MD 08/09/2021 7:50 General Surgery PGY-5 Pager [phone] ? Cosigned by: Luís Morin MD at 08/09/2021 15:55 ??7:54 Attestation statement: I saw and examined the patient with the surgical manager / blue team 08/09/2021 15:55 . I agree with the findings, assessment, and plan as outlined above. * Luís Morin MD - 09/26/2021 0920 EDT Images from the original note were not included. Tomy Dewitt MD Resident Surgery Progress Notes ?? Signed Date of Service: 08/10/2021 ??7:18 []Hide copied text []Hover for details Surgery Progress Note ?? Admit Date: 07/31/2021 Hospital Day: LOS: 9 days Date of Service: 08/10/2021 ?? Chief Complaint/Procedure: PEH; Transferred from [facility] ?? 24 Hr Events: - No acute events overnight. TPN discontinued. ?? Subjective: [place] great in the last 24 hours. Completely [...] subsequent??colostomy reversal)??who presents as a transfer from [facility] after presenting with acute onset abdominal pain secondary to an incarcerated paraesophageal hernia. He was taken??to the OR on 07/24 for an exploratory laparotomy, lysis of adhesions, reduction of his gastric contents, and suture gastropexy. Transferred to [facility] due to ongoing symptoms with [...] MD 08/10/2021 7:18 General Surgery PGY-3 Pager [phone] ? Cosigned by: Luís Morin MD at 08/11/2021 ??8:40 ??7:26 ??8:40 Attestation statement: I saw and examined the patient with the surgical manager / blue team 08/11/2021 ??8:40 . I agree with the findings, assessment, and plan as outlined above. documented in this encounter Plan of Treatment Not on file documented as of this encounter Visit Diagnoses Diagnosis Encounter for preoperative screening laboratory testing for COVID-19 virus- Primary documented in this encounter Care Teams Glass Sander Relationship Specialty Start Date End Date Jovani Wharton DO PCP - General 10/11/16 10/17/21 documented as of this encounter
--- OUTSIDE RECORDS SUMMARY | 2024-06-08 12:44 | XMS_ITS | Encounter Summary ---
Author Organization [facility] Address [address] [place] [address] Care Team Providers Care Valve Setter Name Role Phone DioJovani liu Michel Primary Care Provider [phone]- [phone] Reason for Visit * (Routine/Next Available) - Receiving Office to Obtain Authorization Specialty Diagnoses / Procedures Referred By Devaughn bobo Referred To Contact Procedures CT OUTSIDE IMAGES BODY Imaging, External Referral ID Status Reason Start Date Expiration Date Visits Requested Visits Authorized [id number] Receiving Office to Obtain Authorization 07/23/2021 1 1 Encounter Details Date Type Department Care Team (Latest Contact Info) Description 07/23/2021 21:40 EST - 07/23/2021 23:59 EST Hospital Encounter [facility] Secondary Reads [place] Discharge Disposition: [...] 21:40 EST This is a non-reportable exam. us External Imaging IMG OTHER IMAGING ORDERABLES Fi nal Result documented in this encounter Visit Diagnoses Not on filedocumented in this encounter Care Teams Valve Setter Relationship Specialty Start Date End Date Jovani Wharton DO PCP - General 10/11/16 10/17/21 documented as of this encounter
--- OUTSIDE RECORDS SUMMARY | 2024-06-08 12:44 | XMS_ITS | Clinical Summary ---
Author Organization [facility] Address [facility] [place] [address] Care Team Providers Care Commercial Trailer Truck Driver Name Role Phone Govind Mendes Primary Care [...] mouth daily. 90 tablet 3 08/17/2022 Active ferrous gluconate (Ferate) 324 mg (37.5 mg iron) tablet Take 324 mg by mouth every other day. Active empagliflozin (Jardiance) 10 mg tablet Take 10 mg by mouth daily. Active omeprazole (PriLOSEC) [address] capsule Take 1 capsule by mouth 2 times daily. 180 capsule 3 01/02/2024 Active lisinopriL (Zestril) 20 mg tablet Take 1 tablet by mouth daily. 90 tablet 3 02/06/2024 Active calciTRIoL (Rocaltrol) 0.5 mcg capsule Take 1 capsule by mouth daily. 90 capsule 3 02/27/2024 Active furosemide (Lasix) 40 mg tablet Take 1 tablet by mouth daily. 90 tablet 3 05/06/2024 Active calcium acetate,phosphat bind, (Phoslo) 667 mg capsule Take 1 capsule by mouth 3 times daily (with meals). 90 capsule 11 05/18/2024 Active Active Problems Problem Noted Date Diagnosed [...] (08/09/2020): Added automatically from request for surgery [id number] Screen for colon cancer 08/09/2020 Overview (08/09/2020): Added automatically from request for surgery [id number] Gastroesophageal reflux disease 08/09/2020 Overview (08/09/2020): Added automatically from request for surgery [id number] Gastroesophageal reflux disease with esophagitis 09/24/1995 Encounters Date Type Department Care Team Description 06/08/2024 Telephone [place] [address] Lizet Hayward, RN 06/07/2024 Telephone [place] [address] Alvarez Lentz MD 06/02/2024 9:45 AM EST - 06/02/2024 2:14 PM EST Hospital Encounter [place] [address] Alvarez Lentz MD Discharge Disposition: Home 06/02/2024 8:50 AM EST - 06/02/2024 9:20 AM EST [place] [address] Alvarez Lentz MD POST PROCEDURE RECOVERY 06/02/2024 8:16 AM EST - 06/02/2024 9:44 AM EST Hospital [place] [address] Aurora Marrero MD Acute worsening of stage 4 chronic kidney disease; Anemia of chronic renal failure, stage 4 (severe); Hyperparathyroidism due to renal insufficiency; Hyperkalemia; Primary hypertension Discharge Disposition: Home 06/02/2024 Travel 05/31/2024 Travel 05/25/2024 Telephone [place] [address] Cristin Perez, RN 05/25/2024 Telephone [place] [address] Cristin Perez, RN 05/22/2024 Telephone [place] [address] Shelly Geiger 05/22/2024 Telephone [place] [address] Lizet Hayward, RN 05/21/2024 Telephone [place] [address] Cristin Perez, RN 05/19/2024 Telephone Nephrology Hypertension at [place] [phone] Lizet Hayward RN 05/19/2024 Orders Only [place] [address] Lizet Hayward, RN 05/14/2024 Telephone [place] [address] Cecelia Fisher, TUNNEL KILN REPAIRER 05/14/2024 Tele[place] [phone] Natasha Piper 05/11/2024 Telephone [place] [address] Lizet Hayward, RN 05/08/2024 Abstract [place] [address] Zaynab Briceno 05/06/2024 9:00 AM EST Office Visit [place] [phone] Aurora Marrero MD A, Nurse Clinician Acute worsening of stage 4 chronic kidney disease (Primary Dx); Anemia of chronic renal failure, stage 4 (severe); Hyperparathyroidism due to renal insufficiency; Hyperkalemia; Primary hypertension 05/06/2024 7:45 AM EST Laboratory Appointment Lab [address] [phone] Primary hypertension; Acute worsening of stage 4 chronic kidney disease 05/06/2024 Travel 05/05/2024 Orders Only [place] [address] Lizet Hayward, milk condenser worsening of stage 4 chronic kidney disease (Primary Dx); CKD (chronic kidney disease) stage 5, GFR less than 15 ml/min; Primary hypertension 05/05/2024 Telephone Nephrology Hypertension at [place] [phone] Lizet Haywadr RN 04/30/2024 External Results Nephrology Hypertension at [place] [phone] Karol Iverson, LOYD CKD (chronic kidney disease) stage 5, GFR less than 15 ml/min 04/30/2024 Telephone [place] [address] Lizet Hayward RN 04/06/2024 10:57 AM EST Anesthesia Event Gastroenterology at [place] [phone] Slade Smith MD 04/06/2024 9:45 AM EST - 04/06/2024 10:15 AM EST Surgery Gastroenterology at [place] [phone] Lawrence Gar MD EGD, TRANSORAL; WITH ABLATION OF TUMOR(S), POLYP(S), OR OTHER LESION(S) (WRVU 4.01) 04/06/2024 8:14 AM EST - 04/06/2024 1:07 PM EST Hospital Encounter Gastroenterology at [place] [phone] Lawrence Gar MD 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) Discharge Disposition: Home from Last 3 Months Immunizations Name Administration Dates Next Due Covid-19 Monovalent (Pfizer Comirnaty purple cap) 12yrs+ ([id number]) 03/13/2021,08/16/2020,07/25/2020 Td Adult (Decavac, Tenivac) 08/20/2016, 7 Td Adult (not absorbed) 05/31/2006 Tdap (Adacel, Boostrix) 08/20/2016 Zoster LIVE (Zostavax) 06/24/2018,04/15/2018 Social History Tobacco Use Types Packs/Day [...] Sign Reading Time Taken Comments Blood Pressure 124/71 06/02/2024 1:45 PM EST Pulse 91 06/02/2024 8:00 AM EST Temperature 37 ??C (98.6 ??F) 06/02/2024 10:03 AM EST Respiratory Rate 16 06/02/2024 1:45 PM EST Oxygen Saturation 92% 06/02/2024 1:45 PM EST Inhaled Oxygen Concentration - - Weight 68.2 kg (150 lb 6.4 oz) 05/06/2024 8:59 A M EST Height 167.6 cm (5' 6) 11/19/2023 4:42 PM EDT Body Mass Index 24.28 11/19/2023 4:42 PM EDT Plan of Treatment Upcoming Encounters Date Type Department Care Team (Latest Contact Info) Description 06/19/2024 1:40 PM EST Clinical Support [place] [phone] 06/19/2024 2:00 PM EST Office Visit [place] [phone] Pepe Horton MD [facility] [place] [address] 08/10/2024 10:00 AM EDT Laboratory Appointment Lab [address] [place] [phone] 08/10/2024 11:20 AM EDT Office Visit [place] [phone] Aurora Marrero MD [facility] [place] [address] A, Nurse Clinician None 08/20/2024 7:30 AM EDT Hospital Encounter [place] [address] Lawrence Gar MD [facility] [place] [address] 08/20/2024 7:30 AM EDT - 08/20/2024 8:15 AM EDT Surgery [place] [address] Lawrence Gar MD [facility] [place] [address] EGD, UPPER GI ENDOSCOPY (WRVU 2.09) 11/17/2024 4:20 PM EDT Office [place] [phone] Lawrence Gar MD [facility] [place] [address] Scheduled Procedures Name Priority Associated Diagnoses Date/Ti me EGD, UPPER GI ENDOSCOPY (WRVU 2.09) Sharma's esophagus with high grade dysplasia 08/20/2024 7:30 AM EDT Health Maintenance Due Date Last Done Comments CT Colonography 1955 FIT DNA 1955 FIT 1955 Sigmoidoscopy 1955 Hepatitis C Screening 1972 Lipid Screening 1972 Pneumoccocal Vaccine: 65+ (1 of 2 - PCV) 1973 Zoster vaccine (2 of 3) 08/19/2018 06/24/2018, 04/15 Influenza (Flu) vaccine (1 o f 1 - Influenza standard series) 01/26/2024 Tetanus/Diphtheria/Pertussis Vaccines (3 - Td or Tdap) 08/20/2026 08/20/2016, 08/20/2016, 05/31/2006, Additional history exists Colonoscopy 11/11/2028 11/12/2023, 10/25, 10/20/2020, Additional history exists Colorectal Cancer Screening 11/11/2028 Sigmoidoscopy (10 year) with FIT yearly 11/11/2033 11/12/2023, 11/12/2023, 10/20/2020, Additional history exists Covid-19 Vaccine Completed 02/18/2024, , 04/03/2022, Additional history exists Diabetes Screening (HgbA1C o r Glucose) Discontinued 06/02/2024, 05/06/2024, 04/30/2024, Additional history exists Procedures Procedure Name Priority Date/Time Associated Diagnosis Comments POST PROCEDURE RECOVERY Yes 06/02/2024 4:50 PM EST Stage 4 CKD BASIC METABOLIC PANEL Routine 06/02/2024 10:23 AM EST US GUIDED BIOPSY RENAL Routine 06/02/2024 9:32 AM EST Acute worsening of stage 4 chronic kidney disease Anemia of chronic renal failure, stage 4 (severe) Hyperparathyroidism due to renal insufficiency Hyperkalemia Primary hypertension BASIC METABOLIC PANEL Routine 05/06/2024 7:57 AM EST Primary hypertension Acute worsening of stage 4 chronic kidney disease LAB SCAN 04/30/2024 12:00 AM EST CBC (WITH DIFF) Routine 04/30/2024 CKD (chronic kidney disease) stage 5, GFR less than 15 ml/min PROTEIN/CREATININE RATIO, URINE Routine 04/30/2024 CKD (chronic kidney disease) stage 5, GFR less than 15 ml/min IRON AND TIBC Routine 04/30/2024 CKD (chronic kidney disease) stage 5, GFR less than 15 ml/min BASIC METABOLIC PANEL Routine 04/30/2024 CKD (chronic kidney disease) stage 5, GFR less than 15 ml/min PHOSPHORUS Routine 04/30/2024 CKD (chronic kidney disease) stage 5, GFR less than 15 ml/min ALBUMIN LEVEL Routine 04/30/2024 CKD (chronic kidney disease) stage 5, GFR less than 15 ml/min FERRITIN Routine 04/30/2024 CKD (chronic kidney disease) stage 5, GFR less than 15 ml/min SURGICAL PATHOLOGY Routine 04/06/2024 11 :13 AM EST Sharma's esophagus with high grade dysplasia Upper Gi Endoscopy, Biopsy ([id number]) 04/06/2024 10:58 AM EST Sharma's esophagus with high grade dysplasia Edg Flexible Transoral Ablate Tumor Polyp/Lesion W/Dilation & Wire ([id number]) 04/06/2024 10:58 AM EST Sharma's esophagus with high grade dysplasia UPPER GI ENDOSCOPY Routine 04/06/2024 10 :43 AM EST COLONOSCOPY Routine 11/12/2023 10:27 AM EDT from Last 3 Months or Most Recently Relevant to Health Maintenance Results * (ABNORMAL) Basic Metabolic Panel (06/02/2024 10:23 AM EST) Only the most recent of3 resultswithin the time period is included. Glucose 109 65 - 199 mg/dL 06/02/2024 10:57 AM [facility] Comment:Glucose Concentratio n >=200 mg/dL plus symptoms is consistent with Diabetes Mellitus. Blood Urea Nitrogen 77(H) 10 - 20 mg/dL 06/02/2024 10:57 AM [facility] Creatinine 5.65(H) 0.80 - 1.50 mg/dL 06/02/2024 10:57 AM [facility] Sodium 140 135 - 145 mMol/L 06/02/2024 10:57 AM [facility] Potassium 5.4(H) 3.5 - 5.0 mMol/L 06/02/2024 10:57 AM [facility] Chloride 105 98 - 107 mMol/L 06/02/2024 10:57 AM [facility] Carbon Dioxide 22 22 - 31 mMol/L 06/02/2024 10:57 AM [facility] Anion Gap 13 5 - 15 mMol/L 06/02/2024 10:57 AM [facility] Calcium 8.7 8.5 - 10.5 mg/dL 06/02/2024 10:57 AM [facility] Est Glomerular Filtration Rate - Male 10 mL/min/1. 73 m?? 06/02/2024 10:57 AM [facility] Comment: This patient's estimated [...] urine creatinine clearance. Assignment of CKD stage 1 - 5 for patients with an eGFR near the transition point between stages may be based on clinical assessment of muscle mass and symptoms in addition to eGFR. Link: eGFR Calculator [employer] Fasting Status No 06/02/2024 10:57 AM [facility] Blood VENOUS BLOOD SPECIMEN / Unknown Venipuncture / Unknown 06/02/2024 10:23 AM EST 06/02/2024 10:28 AM EST Alvarez Lentz MD CHEMISTRY ORDERABLES [facility] [place] [address] * US Guided Biopsy Renal (06/02/2024 9:32 AM EST) WORKSTATION ID [id number] RAD Anatomical Region Laterality Modality Neck, C-spine Ultrasound 06/02/2024 9:49 AM EST Impressions 06/02/2024 10:04 AM EST Retroperitoneal Limited Summary Transcription imaging obtained prior to biopsy procedure. [place] Renal Biopsy Summary Ultrasound guidance provided for Dr. Lentz and Blanca of the section of Nephrology. ?? Several biopsies were obtained. Stable post biopsy hematoma measuring 3.2 x 2.1 x 3.2 cm. The patient was sent to the [facility] for followup recovery. I ??viewed the images and agree with the above interpretation. Please see above. Thank you for letting us participate in the care of this patient. If you are a health care provider and have any questions regarding this report, please contact the number above. For patients who have questions, please contact the health career placement services counselor that requested your imaging first. ?Tam Low, Staff Physician Electronically Signed Final Report ?? 06/02/2024 10:04 am Narrative 06/02/2024 10:04 AM EST Renal ? (Signed Final 06/02/2024 10:04 am) PATIENT INFO: ID #: ? [id number] ?: ??[birth year] (69 yrs)(M) Name: ? MATHEW LINK ?Visit Date: 06/02/2024 09:49 am PERFORMED BY: Attending: ?Devante HENDRICKS, Tam Ziegler Performed By: ? Michael Rust RDMS Referred By: ?AURORA MARRERO Location: ? [place] SERVICE(S) PROVIDED: UGREBX - Renal Biopsy ( [place]) - [id number] INDICATIONS: 69 year old male with worsening of stage 4 CKD and proteinuria. H/o hypertension. COMPARISON: Ultrasound: Renal / Bladder LEFT KIDNEY: Size (cm) ?L: ??9.6 Cortical Thickness: ?Thinning Cortical Echogenicity: ?? Normal Hydronephrosis: ?No sonographic evidence Comment: ?Transcription imaging obtained prior to biopsy ------- BIOPSY: ------- Type: ??[place] Kidney Biopsy # ?Location ?Needle ?Gauge ? Pass ?Doppler 1 ?Left kidney ? 16 cm ? 16 ?2 ?Lower pole Medications: ? See [facility] for documentation Comments: ?See [facility] for bedside timeout ?documentation Post Procedure Assessment: ? See [facility] for documentation Procedure Note Tam Low MD - 06/02/2024 Renal (Signed Final 06/02/2024 10:04 am) PATIENT INFO: ID #: [id number] : [birth year] (69 yrs)(M) Name: MATHEW LINK Visit Date: 06/02/2024 09:49 am PERFORMED BY: Attending: Tam Low MD Performed By: Michael Rust RDMS Referred By: AURORA MARRERO Location: [place] SERVICE(S) PROVIDED: UGREBX - Renal Biopsy ( [place]) - [id number] INDICATIONS: 69 year old male with worsening of stage 4 CKD and proteinuria. H/o hypertension. COMPARISON: Ultrasound: Renal / Bladder LEFT KIDNEY: Size (cm) L: 9.6 Cortical Thickness: Thinning Cortical Echogenicity: Normal Hydronephrosis: No sonographic evidence Comment: Transcription imaging obtained prior to biopsy ------- BIOPSY: ------- Type: [place] Kidney Biopsy # Location Needle Gauge Pass Doppler 1 Left kidney 16 cm 16 2 Lower pole Medications: See [facility] for documentation Comments: See [facility] for bedside timeout documentation Post Procedure Assessment: See [facility] for documentation IMPRESSION Retroperitoneal Limited Summary Transcription imaging obtained prior to biopsy procedure. [place] Renal Biopsy Summary Ultrasound guidance provided for Dr. Lentz and Blanca of the section of Nephrology. Several biopsies were obtained. Stable post biopsy hematoma measuring 3.2 x 2.1 x 3.2 cm. The patient was sent to the [facility] for followup recovery. I viewed the images and agree with the above interpretation. Please see above. Thank you for letting us participate in the care of this patient. If you are a health care provider and have any questions regarding this report, please contact the number above. For patients who have questions, please contact the health career placement services counselor that requested your imaging first. Tam Low, Staff Physician Electronically Signed Final Report 06/02/2024 10:04 am Aurora Marrero MD IMG US PROC ORDERABL ES * Scan Doc: Lab (04/30/2024 12:00 AM EST) Narrative 04/30/2024 12:00 AM EST Ordered by an unspecified provider. Scanning Provider MEDIA MGR SCAN EXT O RDR/RSLT * Iron and TIBC (04/30/2024) Iron - External 56 TIBC - External 298 Iron Saturation - External 19 Blood VENOUS BLOOD SPECIMEN / Unknown 04/30/2024 Aurora Marrero MD CHEMISTRY ORDERABLES * Protein/Creatinine Ratio, urine (04/30/2024) Creatinine, Urine - External 27.87 Protein, Urine Ran - External 141.2 Prot/Cre Ratio - External 5.06 Urine URINE SPECIMEN OBTAINED BY CLEAN CATCH PROCEDURE / Unknown 04/30/2024 Aurora Marrero MD URINE ORDERABLES * CBC (with Diff) (04/30/2024) WBC - External 5.57 RBC - External 3.14 Hemoglobin - External 10.0 Hematocrit - External 30.3 MCV - External 97 MCH - External 31.8 MCHC - External 33.0 RDWCV - External 13.6 Platelets - External 190 MPV - External 10.1 Blood VENOUS BLOOD SPECIMEN / Unknown 04/30/2024 Aurora Marrero MD HEMATOLOGY ORDERABLE S * Phosphorus (04/30/2024) Phosphorus - External 6.0 Blood VENOUS BLOOD SPECIMEN / Unknown 04/30/2024 Aurora Marrero MD CHEMISTRY ORDERABLES * Ferritin (04/30/2024) [facility] Ferritin - External 194 Blood VENOUS BLOOD SPECIMEN / Unknown 04/30/2024 Aurora Marrero MD CHEMISTRY ORDERABLES * Albumin Level (04/30/2024) [facility] Albumin - External 3.7 Blood VENOUS BLOOD SPECIMEN / Unknown 04/30/2024 Aurora Marrero MD CHEMISTRY ORDERABLES * Surgical Pathology (04/06/2024 11:13 AM EST) [facility] Case Report Surgical Pathology Report ? Case: [id number] ? Authorizing Provider: ??Lawrence Gar MD ? Collected: ? 04/06/2024 1113 ? Ordering Location: ? Gastroenterology at [facility] ?? Received: ?04/06/2024 1233 ? Pathologist: ? Khoi Morfin MD ? Specimen: ?Stomach, gastric biospies ? 04/16/2024 10:24 AM [facility] Report Update History x 04/16/2024 10:24 AM [facility] Final Diagnosis A. Stomach, gastric biospies Biopsy: - Antrum-type mucosa with reactive gastropathy and intestinal metaplasia - Body/fundic-type mucosa, negative for diagnostic abnormality. 04/16/2024 10:24 AM [facility] Clinical Information A. Stomach, gastric biospies Rule out Helicobacter pylori 69 yo male, hx of gastric ulcer 04/16/2024 10:24 AM [facility] Gross Description A. Stomach, gastric biospies. A - Labeled/Fixative: Stomach gastric biopsies, formalin. Quantity/Size: Six, ranging from 0.2 cm to 0.4 cm. Tissue Description: Soft, mario-brown tissues. Sections/Processin g: Submitted in toto in 2 cassettes labeled A1-A2. CAK 04/16/2024 10:24 AM [facility] Result Note Routine 04/16/2024 10:24 AM [facility] Tissue STOMACH STRUCTURE / Unknown 04/06/2024 11:13 AM EST 04/06/2024 12:33 PM EST Comment:69 yo male, hx of ga stric ulcer Lawrence Gar MD PATHOLOGY/CYTOLOGY O [facility] [place] [address] * UPPER GI ENDOSCOPY (04/06/2024 10:43 AM EST) UPPER GI ENDOSCOPY [facility] Endoscopy ___ Procedure Date: 04/06/2024 10:43 AM ? Patient Name: Mathew Link ? Date of : 1955 ? Age: 69 ? Order #: [id number] ? Instrument Name: [id number] ? ___ Procedure: ? Upper GI endoscopy Indications: ? Follow-up of previous ? radiofrequency ablation treatment ? of Sharma's esophagus, hx HGD Providers: ? Lawrence Gar MD, Natasha Whitfield ? Darcy, Julianna Sharma, ? Quality Head, Cecelia Ferreira Referring MD: ?Govind Mendes Medicines: ? Monitored Anesthesia Care Complications: ? No immediate complications. ___ Procedure: [...] and informed consent was ? obtained. ? The procedure, indications, ? benefits, risks and alternatives ? were explained to the patient. ? Specifically discussed were ? potential complications including, ? but not limited to, bleeding, ? perforation, infection, missing a ? cancer, and adverse medication ? reactions. The Endoscope was ? introduced through the mouth, and ? advanced to the second part of ? duodenum The upper GI endoscopy was ? accomplished without difficulty. ? The patient tolerated the procedure ? well. ? Findings: ? The esophagus and gastroesophageal junction were ? examined with white light and narrow band imaging ? (NBI) from a forward view and retroflexed position. ? There were esophageal mucosal changes classified as ? Sharma's stage C0-M1 per Fults criteria. These ? changes involved the mucosa at the upper extent of ? the gastric folds (39 cm from the incisors) extending ? to the Z-line (38 cm from the incisors). One tongue ? of salmon-colored mucosa was present and islands of ? salmon-colored mucosa were present. Focal ? radiofrequency ablation of Sharma's esophagus was ? performed. With the endoscope in place, the position ? and extent of the Sharma's mucosa and the anatomic ? landmarks including proximal and distal extent of ? Sharma's mucosa and top of gastric folds were noted. ? Endoscopic visualization identified an ablation site ? including the entire visible Sharma's segment. The ? Sharma's mucosa was irrigated with water. The ? endoscope was then removed from the patient. The ? Barrx-60 radiofrequency ablation catheter was ? attached to the tip of the endoscope. The endoscope ? with the attached radiofrequency ablation catheter ? was then passed transorally under direct vision into ? the esophagus and advanced to the areas of Sharma's ? mucosa. The areas included islands and tongues of ? Sharma's mucosa. The radiofrequency ablation ? catheter was placed in contact with the surface of ? the Sharma's mucosa under direct visualization and ? energy was applied twice at 12 J/cm2. Ablation was ? repeated in a likewise fashion to treat the entire ? area of suspected Sharma's mucosa. The ablation zone ? was cleaned of coagulative debris. The ablation ? catheter and endoscope were then removed and the ? catheter was cleaned. The catheter and endoscope were ? reinserted into the esophagus. A second round of ? ablation was then performed. Energy was applied twice ? at 12 J/cm2 to retreat the areas of Sharma's ? epithelium that had been treated with the first ? series of ablation. The areas of the esophagus where ? Sharma's mucosa had been ablated were examined. ? Areas of visible Sharma's esophagus were completely ? ablated. ? Normal mucosa was found in the prepyloric region of ? the stomach, prior ulcer healed. Biopsies were taken ? with a cold forceps for Helicobacter pylori testing. ? The examined duodenum was normal. ? Moderate Sedation: ? Not applicable - See Anesthesia documentation Impression: ?- Esophageal mucosal changes ? classified as Sharma's stage C0-M1 ? per Fults criteria (minimal ? residual Sharma's). Treated with ? radiofrequency ablation. ? - Normal mucosa was found in the ? prepyloric region, prior ulcer ? healed. Biopsied to exclude H. ? pylori. ? - Normal examined duodenum. Recommendation: ?- Await pathology results. ? - Repeat upper endoscopy in 3 ? months for follow-up of Sharma's ? ablation. ? - The attending physician listed ? above was present for the entire ? procedure. ? Attending Participation: ? I was present and participated during the entire ? procedure, including non-yates portions. ? Lawrence Gar MD 04/06/2024 11:44:18 AM This report has been signed electronically. Number of Addenda: 0 Note Initiated On: 04/06/2024 10:43 AM [employer]OVATION 04/06/2024 10:4 3 AM EST Govind [facility] ORDERABLES [employer] * COLONOSCOPY (11/12/2023 10:27 AM EDT) COLONOSCOPY [facility] Endoscopy ___ Procedure Date: 11/12/2023 10:27 AM ? Patient Name: Mathew Link ? Date of : 1955 ? Age: 68 ? Order #: [id number] ? Instrument Name: [id number] ? ___ Procedure: ? Colonoscopy Indications: ? High risk colon cancer ? surveillance: Personal history of ? colonic polyps Providers: ? Lawrence Gar MD, Adore Wilson ? Todd Vanegas Referring MD: ?Slade Tran [...] ? was evaluated using the BBPS ? ([place] Bowel Preparation Scale) ? with scores of: [...] Documents on File Type Date Recorded Patient Correctional Substance Abuse Counselor Expl anation Advance Directives and Livin g Will 07/26/2010 8:58 AM * Attempt Cardiopulmonary Resuscitation - Inpatient (Latest Code Status on File) Date Activated Date Inactivated Comments 06/02/2024 8:53 AM 06/03/2024 4:34 AM Question Answer Comments Code Status decision made by: Patient Care Teams Commercial Trailer Truck Driver Relationship Specialty Start Date End [place] [address] PCP - General Internal Medicine 11/06/23
--- OUTSIDE RECORDS SUMMARY | 2024-06-08 12:44 | XMS_ITS | Encounter Summary ---
Author Organization [facility] Address [address] [place] [address] Care Team Providers Care Substitute Bus Driver Name Role Phone Jovani Wharton DO Primary Care Provider [phone]- [phone] Reason for Visit * (Routine/Next Available) - Receiving Office to Obtain Authorization Specialty Diagnoses / Procedures Referred By Devaughn bobo Referred To Contact Procedures XR OUTSIDE IMAGES CHEST Unknown, Provider, MD Referral ID Status Reason Start Date Expiration Date Visits Requested Visits Authorized [id number] Receiving Office to Obtain Authorization 07/27/2021 1 1 Encounter Details Date Type Department Care Team (Latest Contact Info) Description 07/26/2021 - 07/26/2021 9:26 EST Hospital Encounter [facility] Secondary Reads [place] Discharge Disposition: [...] 12:22 EST This is a non-reportable exam. us Provider Unknown MD HAHN OTHER IMAGING ORDERABLES Final Result documented in this encounter Visit Diagnoses Not on filedocumented in this encounter Care Teams Substitute Bus Driver Relationship Specialty Start Date End Date Jovnai Wharton DO PCP - General 10/11/16 10/17/21 documented as of this encounter
--- OUTSIDE RECORDS SUMMARY | 2024-06-08 12:44 | XMS_ITS | Encounter Summary ---
Author Organization [facility] Address [address] [place] [address] Care Team Providers Care Telephone Answerer Name Role Phone Jovani Wharton DO Primary Care Provider [phone]- [phone] Jorge Chauhan MD Primary Care Provider Luis Lauren MD Primary Care Provider +1 -[phone] Slade Tran MD Primary Care Provider [phone] Reason for Visit * Reason Onset Date Comments Appointment Related 06/02/2021 Encounter Details Date Type Department Care Team (Late st Contact Info) Description 06/02/2021 Telephone [facility] Nephrology - [address] [address] Unknown, Provider, Appointment Related Social [...] on filedocumented in this encounter Care Teams Telephone Answerer Relationship Specialty Start Date End Date Jovani Wharton DO PCP - General 10/11/16 10/17/21 Jorge Chauhan MD [address] [place], [place] [id number] PCP - General Family Medicine - Primary Care 10/18/21 11/22/21 Luis Lauren MD [address] [place], [place] [id number] PCP - General Family Medicine - Primary Care 11/23/21 11/11/22 Slade Tran MD [facility] [address] [place], [place] [address] PCP - General 11/12/22 documented as of this encounter
--- OUTSIDE RECORDS SUMMARY | 2024-06-08 12:44 | XMS_ITS | Encounter Summary ---
Author Organization [facility] Address [address] [place] [address] Care Team Providers Care Stone Sawyer Name Role Phone Jovani Wharton Michel Primary Care Provider [phone]- [phone] Reason for Visit * (Routine/Next Available) - Receiving Office to Obtain Authorization Specialty Diagnoses / Procedures Referred By Devaughn bobo Referred To Contact Procedures XR OUTSIDE IMAGES CHEST Imaging, External Referral ID Status Reason Start Date Expiration Date Visits Requested Visits Authorized [id number] Receiving Office to Obtain Authorization 07/26/2021 1 1 Encounter Details Date Type Department Care Team (Latest Contact Info) Description 07/25/2021 - 07/25/2021 23:59 EST Hospital Encounter [facility] Secondary Reads [place] Discharge [...] 9:28 EST This is a non-reportable exam. us External Imaging IMG OTHER IMAGING ORDERABLES Fi nal Result documented in this encounter Visit Diagnoses Not on filedocumented in this encounter Care Teams Stone Sawyer Relationship Specialty Start Date End Date Jovani Wharton DO PCP - General 10/11/16 10/17/21 documented as of this encounter
--- OUTSIDE RECORDS SUMMARY | 2024-06-08 12:44 | XMS_ITS | Encounter Summary ---
Author Organization [facility] Address [address] [place] [address] Care Team Providers Care Draft Roller Picker Name Role Phone Jovani Wharton Michel Primary Care Provider [phone]- [phone] Reason for Visit * (Routine/Next Available) - Receiving Office to Obtain Authorization Specialty Diagnoses / Procedures Referred By Devaughn bobo Referred To Contact Procedures XR OUTSIDE IMAGES CHEST Imaging, External Referral ID Status Reason Start Date Expiration Date Visits Requested Visits Authorized [id number] Receiving Office to Obtain Authorization 07/26/2021 1 1 Encounter Details Date Type Department Care Team (Latest Contact Info) Description 07/26/2021 9:27 EST - 07/26/2021 22:35 EST Hospital Encounter [facility] Secondary Reads [place] Discharge Disposition: Home [...] 9:27 EST This is a non-reportable exam. us External Imaging IMG OTHER IMAGING ORDERABLES Fi nal Result documented in this encounter Visit Diagnoses Not on filedocumented in this encounter Care Teams Draft Roller Picker Relationship Specialty Start Date End Date Jovani Wharton DO PCP - General 10/11/16 10/17/21 documented as of this encounter
--- OUTSIDE RECORDS SUMMARY | 2024-06-08 12:44 | XMS_ITS | Encounter Summary ---
[place] [address] Care Team Providers Care Planer Chain Offbearer Name Role Phone Govind Mendes Primary Care Provider + Reason for Visit * Auth/Cert (Routine) Specialty Diagnoses / Procedures Referred By Devaughn bobo Referred To Contact Diagnoses Stage 4 CKD Procedures POST PROCEDURE RECOVERY Alvarez Lentz MD [facility] [place] [address] [facility] Referral ID Status Reason Start Date Expiration Date Visits Re quested Visits Authorized [id number] 1 1 Encounter Details Date Type Department Care Team (Late st Contact Info) Description 06/02/2024 8:50 AM EST - 06/02/2024 9:20 AM EST Surgery [place] [address] Alvarez Lentz MD [facility] [place] [address] POST PROCEDURE RECOVERY Social History Tobacco Use Types Packs/Day Years [...] Sig Dispensed Refills Start Date End Date calcium acetate,phosphat bind, (Phoslo) 667 mg capsule Take 1 capsule by mouth 3 times daily (with meals). 90 capsule 11 05/18/2024 furosemide (Lasix) 40 mg tablet Take 1 tablet by mouth daily. 90 tablet 3 05/06/2024 calciTRIoL (Rocaltrol) 0.5 mcg capsule Take 1 capsule by mouth daily. 90 capsule 3 02/27/2024 lisinopriL (Zestril) 20 mg tablet Take 1 tablet by mouth daily. 90 tablet 3 02/06/2024 omeprazole (PriLOSEC) [address] capsule Take 1 capsule by mouth 2 times daily. 180 capsule 3 01/02/2024 empagliflozin (Jardiance) 10 mg tablet Take 10 mg by mouth daily. ferrous gluconate (Ferate) [...] as of this encounter Progress Notes * Jac Martin RN - 06/02/2024 2:08 PM EST Pt completed required two hours of bedrest and two hours of observation. MD in to see pt before dc home. Pt voided twice prior to dc and ordered labs drawn and sent. Pt had no IV access. Pt discharged to home with . Gildardo HARP documented in this encounter Plan of Treatment Upcoming Encounters Date Type Department Care Team (Latest Contact Info) Description 06/19/2024 1:40 PM EST Clinical Support [place] [address] 06/19/2024 2:00 PM EST Office Visit Solid Organ Transplant at [place] [phone] Pepe Horton MD [facility] [place] [address] 08/10/2024 10:00 AM EDT Laboratory Appointment Lab [address] [address] 08/10/2024 11:20 AM EDT Office Visit [place] [address] Jovani Richardson MD [facility] [place] [address] A, Nurse Clinician None 08/20/2024 7:30 AM EDT Hospital Encounter Gastroenterology at [place] [phone] Lawrence Gar MD [facility] [place] [address] 08/20/2024 7:30 AM EDT - 08/20/2024 8:15 AM EDT Surgery Gastroenterology at [place] [phone] Lawrence Gar MD [facility] [place] [address] EGD, UPPER GI ENDOSCOPY (WRVU 2.09) 11/17/2024 4:20 PM EDT Office Visit Gastroenterology at [place] [phone] Lawrence Gar MD [facility] [place] [address] Pending Results Name Type Priority Associated Diagnoses Date /Time [facility] Routine 06/02 9:33 AM EST Scheduled Orders Name Type Priority Associated Diagnoses Orde r Schedule [facility] Routine One T petar for 1 Occurrences starting 06/02/2024 until 06/02/2024 Scheduled Procedures Name Priority Associated Diagnoses Date/Ti ia EGD, UPPER GI ENDOSCOPY (WRVU 2.09) Sharma's esophagus with high grade dysplasia 08/20/2024 7:30 AM EDT documented as of this encounter Procedures Procedure Name Priority Date/Time Associated Diagnosis Comments POST PROCEDURE RECOVERY Yes 06/02/2024 4:50 PM EST Stage 4 CKD BASIC METABOLIC PANEL Routine 06/02/2024 10:23 AM EST documented in this encounter Results * (ABNORMAL) Basic Metabolic Panel (06/02/2024 10:23 AM EST) Glucose 109 65 - 199 mg/dL 06/02/2024 10:57 AM [facility] Comment:Glucose Concentratio n >=200 mg/dL plus symptoms is consistent with Diabetes Mellitus. Blood Urea Nitrogen 77(H) 10 - 20 mg/dL 06/02/2024 10:57 AM [facility] Creatinine 5.65(H) 0.80 - 1.50 mg/dL 06/02/2024 10:57 AM [facility] Sodium 140 135 - 145 mMol/L 06/02/2024 10:57 AM [facility] Potassium 5.4(H) 3.5 - 5.0 mMol/L 06/02/2024 10:57 AM [facility] Chloride 105 98 - 107 mMol/L 06/02/2024 10:57 AM [facility] Carbon Dioxide 22 22 - 31 mMol/L 06/02/2024 10:57 AM [facility] Anion Gap 13 5 - 15 mMol/L 06/02/2024 10:57 AM EST [facility] Calcium 8.7 8.5 - 10.5 mg/dL 06/02/2024 10:57 AM EST [facility] Est Glomerular Filtration Rate - Male 10 mL/min/1. 73 m?? 06/02/2024 10:57 AM [facility] Comment: This patient's estimated GFR [...] Foundation Fasting Status No 06/02/2024 10:57 AM [facility] Blood VENOUS BLOOD SPECIMEN / Unknown Venipuncture / Unknown 06/02/2024 10:23 AM EST 06/02/2024 10:28 AM EST Alvarez Lentz MD CHEMISTRY ORDERABLES [facility] [place] [address] documented in this encounter Visit Diagnoses Not on filedocumented in this encounter Administered Medications Inactive Administered Medications - up to 3 most recent administrations Medication Order MAR Action Action Date Dose Rate Site acetaminophen (Tylenol) tablet 650 mg 650 mg, Oral, EVERY 4 HOURS PRN, Starting on Sat06/02/24 at 0937, Until Sat06/02/24 at 1614, Pain, - Maximum dose of acetaminophen is 4,000 mg from all sources in 24 hours. - Unless otherwise specified, when ordered PRN for pain, acetaminophen should be given first if other PRN pain medications are ordered., Routine documented in this encounter Active and Recently Administered Medications Times are shown in EST. PRN Medication Order 05/31/2024 06/01/2024 06/02/2024 acetaminophen (Tylenol) tablet 650 mg 650 mg, Oral, EVERY 4 HOURS PRN, Starting on Sat06/02/24 at 0937, Until Sat06/02/24 at 1614, Pain, - Maximum dose of acetaminophen is 4,000 mg from all sources in 24 hours. - Unless otherwise specified, when ordered PRN for pain, acetaminophen should be given first if other PRN pain medications are ordered., Routine documented in this encounter Care Teams Planer Chain Offbearer Relationship Specialty Start Date End Date Govind [place] [address] [place] [address] PCP - General Internal Medicine 11/06/23 documented as of this encounter
--- OUTSIDE RECORDS SUMMARY | 2024-06-08 12:44 | XMS_ITS | Encounter Summary ---
Author Organization [facility] Address [address] [place] [address] Care Team Providers Care Life Insurance Agent Name Role Phone Jovani Wharton DO Primary Care Provider +1- [phone] Reason for Visit * (Routine/Next Available) - Receiving Office to Obtain Authorization Specialty Diagnoses / Procedures Referred By Devaughn bobo Referred To Contact Procedures CT OUTSIDE IMAGES BODY Imaging, External Referral ID Status Reason Start Date Expiration Date Visits Requested Visits Authorized [id number] Receiving Office to Obtain Authorization 07/23/2021 1 1 Encounter Details Date Type Department Care Team (Latest Contact Info) Description 06/02/2020 - 06/02/2020 23:59 EST Hospital Encounter [facility] Secondary Reads [place] Discharge Disposition: Home [...] filedocumented in this encounter Care Teams Life Insurance Agent Relationship Specialty Start Date End Date Jovani Wharton DO PCP - General 10/11/16 10/17/21 documented as of this encounter
--- OUTSIDE RECORDS SUMMARY | 2024-06-08 12:44 | XMS_ITS | Encounter Summary ---
Author Organization [facility] Address [address] [place] [address] Care Team Providers Care Supervisor Hand Silvering Name Role Phone Jovani Wharton DO Primary Care Provider +1- [phone] Encounter Details Date Type Department Care Team (Late st Contact Info) Description 09/12/2018 Results Only [facility] [phone] Woodrow Saravia MD [address] [place] [address] Social History Tobacco Use Types [...] ? MATHEW LINK ? Accession #: ? [id number] ? : ? 1955 (Age: 63) ??M [...] (ASCP) 09/15/2018 4:09 PM End of Report [facility] 09/12/2018 15:4 7 EDT 09/15/2018 15:47 EDT us Woodrow Saravia MD PATHOLOGY ORDERABLES Final Res ult [facility] [address] [place] [address] documented in this encounter Visit Diagnoses Not on filedocumented in this encounter Care Teams Supervisor Hand Silvering Relationship Specialty Start Date End Date Jovani Wharton DO PCP - General 10/11/16 10/17/21 documented as of this encounter
--- OUTSIDE RECORDS SUMMARY | 2024-06-08 12:44 | XMS_ITS | Encounter Summary ---
Author Organization [facility] Address [address] [place] [address] Care Team Providers Care Computer Operations Analyst Name Role Phone Jovani Wharton DO Primary Care Provider +1- [phone] Reason for Visit * (Routine/Next Available) - Receiving Office to Obtain Authorization Specialty Diagnoses / Procedures Referred By Devaughn bobo Referred To Contact Procedures XR OUTSIDE IMAGES CHEST Unknown, Provider, MD Referral ID Status Reason Start Date Expiration Date Visits Requested Visits Authorized [id number] Receiving Office to Obtain Authorization 07/27/2021 1 1 Encounter Details Date Type Department Care Team (Latest Contact Info) Description 07/27/2021 12:18 EST Hospital Encounter [facility] Secondary Reads [place] Discharge Disposition: Home [...] 12:18 EST This is a non-reportable exam. us Provider Unknown IMNerissa OTHER IMAGING ORDERABLES Final Result documented in this encounter Visit Diagnoses Not on filedocumented in this encounter Care Teams Computer Operations Analyst Relationship Specialty Start Date End Date Jovani Wharton DO PCP - General 10/11/16 10/17/21 documented as of this encounter
--- OUTSIDE RECORDS SUMMARY | 2024-06-08 12:44 | XMS_ITS | Encounter Summary ---
Author Organization [facility] [place] [address] Care Team Providers Care Splitter Operator Name Role Phone Govind Mendes Primary Care Provider + Encounter Details Date Type Department Care Team (Late st Contact Info) Description 06/07/2024 Telephone Ne[place] [address] Alvarez Lentz MD [facility] [place] [address] Social History Tobacco Use Types Packs/Day Years [...] encounter Miscellaneous Notes * Telephone Encounter - Alvarez Lentz MD - 06/07/2024 6:33 PM EST Mathew Abel Vanessa called saying he had fever in the 101 range with mild chills, no respiratory, urinaryor GI symptoms, no headache,. Blood pressure systolic in the 140- 150 range. Has generalized aches and pains. NO increase in back pain or blood in urine. Advised to call pcp in the morning. Recommended labs, I ordered BMP and CBC , he wants to get it done at [facility]. documented in this encounter Plan of Treatment Upcoming Encounters Date Type Department Care Team (Latest Contact Info) Description 06/19/2024 1:40 PM EST Clinical Support Solid Organ Transplant at [place] [address] 06/19/2024 2:00 PM EST Office Visit Solid Organ Transplant at [place] [address] Pepe Horton MD [facility] [place] [address] 08/10/2024 10:00 AM EDT Laboratory Appointment Lab [address] [address] 08/10/2024 11:20 AM EDT Office Visit Nephrology Hypertension at [place] [address] Jovani Richardson MD [facility] [place] [address] A, Nurse Clinician None 08/20/2024 7:30 AM EDT Hospital Encounter Gastroenterology at [place] [address] Lawrence Gar MD [facility] [place] [address] 08/20/2024 7:30 AM EDT - 08/20/2024 8:15 AM EDT Surgery Gastroenterology at [address] Lawrence Gar MD [facility] [place] [address] EGD, UPPER GI ENDOSCOPY (WRVU 2.09) 11/17/2024 4:20 PM EDT Office Visit Gastroenterology at [facility] [address] Lawrence Gar MD [facility] [address] Scheduled Orders Name Type Priority Associated Diagnoses Orde r Schedule CBC (with Diff) Lab Routine Acute worsening of stage 4 chronic kidney disease Hyperkalemia Expected: 06/07/2024 (Approximate), Expires: 06/07/2025 Basic Metabolic Panel Non-fasting Lab Routine Acute worsening of stage 4 chronic kidney disease Hyperkalemia Expected: 06/07/2024 (Approximate), Expires: 06/07/2025 Albumin Level Lab Routine Acute worsening of stage 4 chronic kidney disease Hyperkalemia Expected: 06/07/2024 (Approximate), Expires: 06/07/2025 Scheduled Procedures Name Priority Associated Diagnoses Date/Ti nv EGD, UPPER GI ENDOSCOPY (WRVU 2.09) Sharma's esophagus with high grade dysplasia 08/20/2024 7:30 AM EDT documented as of this encounter Visit Diagnoses Diagnosis Acute worsening of stage 4 chronic kidney disease Hyperkalemia Hyperpotassemia Sharma's esophagus with high grade dysplasia Sharma's esophagus documented in this encounter Care Teams Splitter Operator Relationship Specialty Start Date End Date Govind Mendes PA [facility] [place] [address] PCP - General Internal Medicine 11/06/23 documented as of this encounter
--- OUTSIDE RECORDS SUMMARY | 2024-06-08 12:44 | XMS_ITS | Encounter Summary ---
Author Organization [facility] Address [address] [place] [address] Care Team Providers Care Dough Brake Machine Operator Name Role Phone Dio Jovani Michel Primary Care Provider +1- [phone] Encounter Details Date Type Department Care Team (Latest Contact Info) Description 07/31/2021 - 07/31/2021 18:57 EST Hospital Encounter [facility] Secondary Reads [place] Discharge [...] this encounter Medications at Time of Discharge allopurinoL (ZYLOPRIM) 100 mg tablet Take 100 mg by mouth daily. metoprolol TARtrate (LOPRESSOR) 25 mg tablet Take 0.5 Tablets by mouth 2 times daily. 30 Tablet 4 08/11/2021 metoprolol TARtrate (LOPRESSOR) 25 mg tablet Take 0.5 Tablets by mouth 2 times daily. 30 Tablet 3 08/11/2021 2 omeprazole (PRILOSEC) 20 mg capsule Take 40 mg by mouth every morning. 2 oxyCODONE (ROXICODONE) 5 mg immediate release tablet Take 1 Tablet by mouth every 6 hours as needed for Pain. Daily Max: 20 mg 10 Tablet 08/10/2021 2 pantoprazole (PROTONIX) 40 mg tablet Take 1 Tablet by mouth daily before breakfast for 30 days. 30 Tablet 2 08/11/2021 2 traMADol (ULTRAM) 50 mg tablet Take 1 Tablet by mouth every 6 hours as needed for Pain. Daily Max: 200 mg 20 Tablet 08/11/2021 2 documented as of this encounter Discharge [...] 13:27 EDT This is a non-reportable exam. us External Imaging IMG OTHER IMAGING ORDERABLES Fi nal Result documented in this encounter Visit Diagnoses Not on filedocumented in this encounter Care Teams Dough Brake Machine Operator Relationship Specialty Start Date End Date Jovani Wharton DO PCP - General 10/11/16 10/17/21 documented as of this encounter
--- OUTSIDE RECORDS SUMMARY | 2024-06-08 12:44 | XMS_ITS | Encounter Summary ---
[place] [address] Care Team Providers Care Mental Health Therapist Name Role Phone Govind Mednes Primary Care Provider + Encounter Details Date Type Department Care Team (Late st Contact Info) Description 06/08/2024 Telephone Ne[place] [phone] Lizet Hayward RN Social History Tobacco Use [...] Telephone Encounter - Lizet Hayward RN - 06/08/2024 12:06 PM EST S/O: RN received call from Mayela at [facility] lab with critical lab results for patient. BUN 98 Creatinine 6.4 P: RN reviewed w/Dr. Richardson. Will await the rest of the labs from [facility] for review. documented in this encounter Plan of Treatment Upcoming Encounters Date Type Department Care Team (Latest Contact Info) Description 06/19/2024 1:40 PM EST Clinical Support [place] [phone] 06/19/2024 2:00 PM EST Office Visit Solid Organ Transplant at [place] [phone] Pepe Horton MD [facility] [place] [address] 08/10/2024 10:00 AM EDT Laboratory Appointment Lab [address] [address] 08/10/2024 11:20 AM EDT Office Visit Neph[place] [address] Jovani Richardson MD [facility] [place] [address] A, Nurse Clinician None 08/20/2024 7:30 AM EDT Hospital Encounter Gastroenterology at [address] Lawrence Gar MD [facility] [place] [address] 08/20/2024 7:30 AM EDT - 08/20/2024 8:15 AM EDT Surgery Gastroenterology at [place] [phone] Lawrence Gar MD [facility] [place] [address] EGD, UPPER GI ENDOSCOPY (WRVU 2.09) 11/17/2024 4:20 PM EDT Office Visit Gastroenterology at [place] [phone] Lawrence Gar MD [facility] [place] [address] Scheduled Procedures Name Priority Associated Diagnoses Date/Ti me EGD, UPPER GI ENDOSCOPY (WRVU 2.09) Sharma's esophagus with high grade dysplasia 08/20/2024 7:30 AM EDT documented as of this encounter Visit Diagnoses Not on filedocumented in this encounter Care Teams Mental Health Therapist Relationship Specialty Start Date End Date Govind Mendes PA [facility] [place] [address] PCP - General Internal Medicine 11/06/23 documented as of this encounter
--- OUTSIDE RECORDS SUMMARY | 2024-06-08 12:44 | XMS_ITS | Encounter Summary ---
Author Organization [facility] Address [address] [place] [address] Care Team Providers Care Toll Bridge Operator Name Role Phone Jovani Wharton DO Primary Care Provider [phone] Encounter Details Date Type Department Care Team (Latest Contact Info) Description 09/12/2018 15:00 EDT - 09/12/2018 23:59 EDT Hospital Encounter [address] [address] Unknown, Provider, MD Discharge Disposition: Home or Self Care Social History Tobacco Use Types Packs/Day Years Used Date Smoking Tobacco: Never Assessed Sex and Gender Information Value Date Recorded Sex Assigned at Not on file Legal Sex Male 18:42 EST Gender Identity Male 10/18/2021 9:41 EDT Sexual Orientation Not on file documented as of this encounter Discharge Disposition Disposition Code Departure Means Destination Home or Self Alf documented in this encounter Plan of Treatment Not on file documented as of this encounter Visit Diagnoses Not on filedocumented in this encounter Care Teams Toll Bridge Operator Relationship Specialty Start Date End Date Jovani Wharton DO PCP - General 10/11/16 10/17/21 documented as of this encounter
--- OUTSIDE RECORDS SUMMARY | 2024-06-08 12:44 | XMS_ITS | Encounter Summary ---
Author Organization [facility] Address [address] [place] [address] Care Team Providers Care Corporate Giving Manager Name Role Phone Jovani Wharton DO Primary Care Provider [phone] Jorge Chauhan MD Primary Care Provider Luis Lauren MD Primary Care Provider [phone] Slade Tran MD Primary Care Provider [phone] Encounter Details Date Type Department Care Team (Late st Contact Info) Description 08/09/2020 Lab Requisition [facility] Pathology & Laboratory Medicine - [facility] [address] [place], [place] [id number] Outr Resulting Lab, Provider Social History Tobacco [...] 0.0 - 4.5 ng/mL 08/09/2020 22:41 EDT [facility] Blood VENOUS BLOOD / Unknown 08/09/2020 9:12 EDT 08/09/2020 21:13 EDT Narrative [facility] - 08/09/2020 22:41 EDT NOTE: Serum PSA concentration should not be interpreted as absolute evidence for the presence or absence of malignant disease. Assayed on Siemens ANPIaur XPT using chemiluminescent technology.??Values obtained by using different assay methods cannot be used interchangeably. us Provider Outr Resulting Lab CHEMISTRY & BLOOD GA S ORDERABLES Final Result [facility] [address] [place] [address] documented in this encounter Visit Diagnoses Not on filedocumented in this encounter Care Teams Corporate Giving Manager Relationship Specialty Start Date End Date Jovani Wharton DO PCP - General 10/11/16 10/17/21 Jorge Chauhan MD [address] [place], [place] [id number] PCP - General Family Medicine - Primary Care 10/18/21 11/22/21 Luis Lauren MD [address] [place], [place] [id number] PCP - General Family Medicine - Primary Care 11/23/21 11/11/22 Slade Tran MD [facility] [address] [place], [place] [id number] PCP - General 11/12/22 documented as of this encounter
--- OUTSIDE RECORDS SUMMARY | 2024-06-08 12:44 | XMS_ITS | Encounter Summary ---
Author Organization [facility] Address [address] [place] [address] Care Team Providers Care Title I Assistant Name Role Phone Jovani Wharton DO Primary Care Provider [phone] Encounter Details Date Type Department Care Team [...] on filedocumented in this encounter Care Teams Title I Assistant Relationship Specialty Start Date End Date Jovani Wharton DO PCP - General 10/11/16 10/17/21 documented as of this encounter
--- OUTSIDE RECORDS SUMMARY | 2024-06-08 12:44 | XMS_ITS | Encounter Summary ---
Author Organization [facility] Address [address] [place] [address] Care Team Providers Care Shuttle Fixer Name Role Phone Jovani Wharton DO Primary Care Provider [phone]- [phone] Reason for Referral * Specialty Diagnoses / Procedures Referred By Contac t Referred To Contact Sanjuana Gaona NP Phone: tel: fax: Referral ID Status Reason Start Date Expiration Date Visits Re quested Visits Authorized Comments Please call the General Surgery clinic at [phone] if you have any questions for Dr. Lee. Please schedule a follow up in 2-3 weeks. * Specialty Diagnoses / Procedures Referred By Contac t Referred To Contact Sanjuana Gaona, CARMEN Phone: tel: fax: Referral ID Status Reason [...] t Referred To Contact Sanjuana Gaona NP Phone: tel: fax: Referral ID Status Reason [...] * Specialty Diagnoses / Procedures Referred By Contmario t Referred To Contact Sanjuana Gaona NP Phone: tel: fax: Referral ID Status Reason [...] Expiration Date Visits Re quested Visits Authorized [id number] 1 1 Encounter Details Date Type Department Care Team (Late st Contact Info) Description 07/31/2021 18:58 EST - 08/11/2021 12:47 EDT Hospital Encounter [facility] General Surgery Unit [address], [place] [address] Ollie Lee MD [address] [place] [address], [facility] [address] [place] [id number] Paraesophageal hernia Discharge Disposition: Home or Self [...] Cedrick Sellers RN documented in this encounter Discharge Summaries * Ashlie Greene [...] who presented on 07/31/21as a transfer from [facility] after presenting with acute onset abdominal pain secondary to an incarcerated paraesophageal hernia. He was taken to the OR at [facility] where a partial gastric reduction and suture gastropexy was performed at on 07/24/21. Unfortunately, while his symptoms did improve slightly, he still had significant pain and evidence of delayed emptying on UGI study. He was thus transferred to [facility] and continued on the TPN that was started at [facility]. An UGI was obtained the day after admission at [facility] where contrast was seen to traverse the [...] Administered Date(s) Administered ??? Covid-19 mRNA Vaccine (Graine de C[place] COVID-19) PF 0.3 ml IM (12 yrs+) [...] the left upper quadrant, and outside the [id number]. Soft tissues, bones and extrathoracic findings: There [...] non-reportable exam. FL UGI WO AIR W CURING OVEN TENDER Result Date: 08/01/2021 FL UGI WO AIR W CURING OVEN TENDER 08/01/2021 9:35 AM Signs and Symptoms/Comments: History [...] to tolerate oral intake of contrast. Findings: Senior Scheduler KUB demonstrates a large air and contrast-filled [...] Please call the General Surgery clinic at [phone] if you have any questions for Dr. Lee. Please schedule a follow up in 2-3 weeks. Authorizing Provider: Sanjuana Gaona NP Please notify your doctor for the following [...] MD 08/11/2021 11:43 General Surgery PGY-5 Pager [phone] Cosigned by Ollie Lee MD at 08/20/2021 14:20 EDT documented in this encounter Medications at Time [...] Refills Last Filled Start Date End Date metoprolol TARtrate (LOPRESSOR) 25 mg tablet Take 0.5 Tablets by mouth 2 times daily. 30 Tablet 4 08/11/2021 metoprolol TARtrate (LOPRESSOR) 25 mg tablet Take 0.5 Tablets by mouth 2 times daily. 30 Tablet 3 08/11/2021 2 traMADol (ULTRAM) 50 mg tablet Take 1 Tablet by mouth every 6 hours as needed for Pain. Daily Max: 200 mg 20 Tablet 08/11/2021 2 oxyCODONE (ROXICODONE) 5 mg immediate release tablet Take 1 Tablet by mouth every 6 hours as needed for Pain. Daily Max: 20 mg 10 Tablet 08/10/2021 2 pantoprazole (PROTONIX) 40 mg tablet Take 1 Tablet by mouth daily before breakfast for 30 days. 30 Tablet 2 08/11/2021 2 documented in this encounter Discharge Disposition Disposition Code Departure Means Destination Home or Self [facility] documented in this encounter Progress Notes * Lia Willis - 08/11/2021 1232 EDT SOCIAL WORK PROGRESS NOTE: Pt medically cleared to mo home with no CM needs- provide ride at mo. Natalie Willis LMSW Call Center Team Leader II Pager: [phone] * Tomy Dewitt MD - 08/11/2021 0623 EDT Surgery Progress Note Admit Date: 07/31/2021 Hospital Day: LOS: 10 days Date of Service: 08/11/2021 Chief Complaint/Procedure: PEH; Transferred from [facility] 24 Hr Events: - No acute [...] reversal) who presents as a transfer from [facility] after presenting with acute onset abdominal pain secondary to an incarcerated paraesophageal hernia. He was taken to the OR on 07/24 for anexploratory laparotomy, lysis of adhesions, reduction of his gastric contents, and suture gastropexy. Transferred to [facility] due to ongoing symptoms with [...] MD 08/11/2021 6:53 General Surgery PGY-3 Pager [phone] * Lia Willis - 08/10/2021 4247 EDT SOCIAL WORK PROGRESS NOTE: Per MD team pt may be medically ready to dc home with tomorrow Friday 08/11 on full liquid diet. Pt has no CM needs that would prevent dc. SW CM will continue to follow and will continue to assist with a safe d/c when medically cleared. Natalie Willis [facility] Call Center Team Leader II Pager: [phone] * Shannan Patel, RD - 08/10/2021 1402 EDT Nutrition Assessment [...] results found for: ZINCMZN, COPPER, THIAMINE, FOLATE, [id number], METMMETHY, VITEALPH, RETINOL, VITD Lab Results Component Value Date/Time ALT 17 08/10/2021 05:56 AST 20 08/10/2021 05:56 ALKPHOS 75 08/10/2021 05:56 TBIL <0.5 08/10/2021 05:56 TRIG 196 08/07/2021 05:12 Estimated Nutrition Needs: [id number] lakshmi (BEE x 1.2-1.3) 87 gm pro [...] Patel RD, CD (Call PAS or use [employer] to page RD covering this unit) * Tomy Dewitt MD - 08/10/2021 0718 EDT Surgery Progress Note Admit Date: 07/31/2021 Hospital Day: LOS: 9 days Date of Service: 08/10/2021 Chief Complaint/Procedure: PEH; Transferred from [facility] 24 Hr Events: - No acute events overnight. TPN discontinued. Subjective: [place] great in the last 24 hours. Completely [...] reversal) who presents as a transfer from [facility] after presenting with acute onset abdominal pain secondary to an incarcerated paraesophageal hernia. He was taken to the OR on 07/24 for anexploratory laparotomy, lysis of adhesions, reduction of his gastric contents, and suture gastropexy. Transferred to [facility] due to ongoing symptoms with [...] MD 08/10/2021 7:18 General Surgery PGY-3 Pager [phone] Cosigned by Luís Morin MD at 08/11/2021 8:40 EDT * Ashlie Greene MD - 08/09/2021 0743 EDT Surgery Progress Note Admit Date: 07/31/2021 Hospital Day: LOS: 8 days Date of Service: 08/09/2021 Chief Complaint/Procedure: PEH; Transferred from [facility] 24 Hr Events: - NAEON Subjective: [...] RUE PICC Labs: CBC: Recent Labs 08/07/21 0512 08/08/21 0604 08/09/21 0513 WBC 5.83 6.05 7.59 HGB 8.4* 8.7* 8.9* HCT 25.5* 27.1* 26.3* MCV 93 93 91 PLT 204 206 209 BMP: Recent Labs 08/07/21 0512 08/08/21 0604 08/09/21 0513 NA 136 138 138 K 4.7 4.7 4.4 CL 106 106 104 CO2 21* 19* 22 BUN 54* 56* 59* CREATININE 2.04* 2.17* 2.05* MG 2.1 2.0 2.0 PHOS 4.1 4.4 3.8 CALCIUM 9.1 9.5 9.7 SERGLU 115* 114* 109* LFTs: Recent Labs 08/07/21 0512 08/08/21 0604 08/09/21 0513 ALT 14 16 16 [...] reversal) who presents as a transfer from [facility] after presenting with acute onset abdominal pain secondary to an incarcerated paraesophageal hernia. He was taken to the OR on 07/24 for anexploratory laparotomy, lysis of adhesions, reduction of his gastric contents, and suture gastropexy. Transferred to [facility] due to ongoing symptoms with [...] MD 08/09/2021 7:50 General Surgery PGY-5 Pager [phone] Cosigned by Luís Morin MD at 08/09/2021 15:55 EDT * Lia Willis - 08/08/2021 1022 EDT SOCIAL WORK PROGRESS NOTE: Pt does not meet Medicare guidelines criteria for home TPN. MD team aware. Please refer back to 08/05 from [facility] Infusion pharmacy. Natalie Willis LMSW Call Center Team Leader II Pager: [phone] * Ford Villa MD - 08/08/2021 0916 EDT Surgery Progress Note Admit Date: 07/31/2021 Hospital Day: LOS: 7 days Date of Service: 08/08/2021 Chief Complaint/Procedure: PEH; Transferred from [facility] 24 Hr Events: - NAEON Subjective: [...] Wt 69.7 kg (153 lb 9.6 oz) IqK163% BMI 24.79 kg/m?? Intake/Output: I&O By Type [...] 206 BMP: Recent Labs 08/06/21 0744 08/07/21 0508/08/21 0604 NA 138 136 138 [...] reversal) who presents as a transfer from [facility] after presenting with acute onset abdominal [...] TPN Ford Villa MD 08/08/2021 9:16 PGY-3 Cosigned by Luís Morin MD at 08/08/2021 16:45 EDT * Shannan Patel, RD - 08/07/2021 5268 EDT Nutrition Assessment Note: Reassessment Patient Name: [...] or drinking He is walking frequently Per NETWORK PROGRAM MANAGER, pt. To return for surgery in 6-8 [...] results found for: ZINCMZN, COPPER, THIAMINE, FOLATE, PESQUERV25, METMMETHY, VITEALPH, RETINOL, VITD Lab Results Component Value Date/Time ALT 14 08/07/2021 05:12 AST 19 08/07/2021 05:12 ALKPHOS 60 08/07/2021 05:12 TBIL <0.5 08/07/2021 05:12 TRIG 196 08/07/2021 05:12 Estimated Nutrition Needs: [id number] lakshmi (BEE x 1.2-1.3) 87 gm pro [...] diet advance~ Calorie count has been ordered Encourage pt. To eat slowly Should take [...] Service: 08/07/2021 Chief Complaint/Procedure: PEH; Transferred from [facility] 24 Hr Events: - Tolerating small [...] reversal) who presents as a transfer from [facility] after presenting with acute onset abdominal [...] Service: 08/06/2021 Chief Complaint/Procedure: PEH; Transferred from [facility] 24 Hr Events: - Reflux with [...] present?: Yes, RUE Labs: CBC: Recent Labs 08/04/2145608/05/21 0530 08/06/21 0609 WBC 6.83 5.96 6.86 HGB 9.6* 8.4* 8.4* HCT 29.4* 26.2* 25.2* MCV 93 94 96* PLT 236 199 200 BMP: Recent Labs 08/04/2145608/05/21 0531 08/06/21 0609 NA 139 138 134* K 4.6 4.2 5.8* CL 96 98 102 CO2 33* 28 20* BUN 53* 51* 51* CREATININE 2.35* 2.24* 2.05* MG 2.4 2.1 2.4 PHOS 3.9 3.8 4.4 CALCIUM 9.3 9.2 9.6 SERGLU 95 109* 527* LFTs: Recent Labs 08/04/2145608/05/21 0531 08/06/21 0609 ALT 16 14 13 AST 19 18 20 ALKPHOS 78 65 46 TBIL <0.5 <0.5 <0.5 TP 6.6 5.9* 5.4* LABALBU 4.1 3.5 3.3* Assessment: Mathew Mendez is a 66-year-old male with history of paraesophageal hernia, hypertension, GERD, CKD 4,and diverticulitis (status post small bowel resection, colostomy, and subsequent colostomy reversal) who presents as a transfer from [facility] after presenting with acute onset abdominal [...] the covering resident with questions or concerns. Cosigned by Holli Yancey MD at 08/06/2021 9:56 EDT Associated attestation - Holli Yancey MD - 08/06/2021 0956 EDT Concerned tums may just sit in stomach and not empty well. May try maalox, but may have same issue.Reflux is likely from stomach not emptying well enough. I saw and examined the patient and discussed with the resident/medical student/NETWORK PROGRAM MANAGER team. I agree with the findings and plan of care documented in the resident's/medical student's/NETWORK PROGRAM MANAGER's note. Holli Yancey Division of General Surgery [...] Service: 08/05/2021 Chief Complaint/Procedure: PEH; Transferred from [facility] 24 Hr Events: - Tolerating 2oz/hr [...] reversal) who presents as a transfer from [facility] after presenting with acute onset abdominal [...] MD 08/05/2021 9:18 General Surgery PGY-5 Pager [phone] Cosigned by Hloli Yancey MD at 08/05/2021 16:28 EST Associated attestation - Holli Yancey MD - 08/05/2021 1628 EST I saw and examined the patient and discussed with the resident/medical student/NETWORK PROGRAM MANAGER team. I agree with the findings and plan of care documented in the resident's/medical student's/NETWORK PROGRAM MANAGER's note. Holli Yancey Division of General Surgery Colon and Rectal Surgery * Lia Willis - 08/05/2021 0805 EST Per infusion pharmacy please read below: Coverage and Benefits Estimate for Home Infusion services: Name: Mathew Mendez : 1955 Home Infusion Therapy: Parenteral Nutrition Benefits estimate completed on: 08/04/2021 [facility] [place] PPO plan is active on a calendar year basis as of 05/27/2021. This [facility] plan follows all Medicare guidelines. Plan [...] Insurance coverage have to be reported to [facility] so timely authorizations for services can be obtained. If insurance coverage is terminated during therapy, patient should contact [facility] services at as well as Patient Assistance Program at . * Lia Willis - 08/04/2021 3171 EST SOCIAL WORK PROGRESS NOTE: Per MD team pt is not medically ready at this time- unable to safely advance diet and continue to be NPO and on TPN for nutrition management. Per MD team- pt may need to dc home on TPN at mo. Will await from MD team to confirm. MIGEL MCKEON will continue to follow and will continue to assist with a safe d/c when medically cleared. Natalie Willis [facility] Call Center Team Leader II Pager: [phone] * Ollie Lee MD - 08/04/2021 0521 EST Surgery Progress Note Admit Date: 07/31/2021 Hospital Day: LOS: 3 days Date of Service: 08/04/2021 Chief Complaint/Procedure: PEH; Transferred from [facility] 24 Hr Events: - Vomited x [...] Wt 69.7 kg (153 lb 9.6 oz) WsR512% BMI 24.79 kg/m?? Intake/Output: I&O By Type [...] RUE Labs: CBC: Recent Labs 08/02/2143808/03/21 0538 08/04/21456 WBC 4.40 5.81 6.83 HGB 9.3* 9.7* [...] reversal) who presents as a transfer from [facility] after presenting with acute onset abdominal [...] well controlled, ambulating and voiding independently JERARDO STEWART M3 08/04/2021 5:21 I was present with [...] Pepe MD 08/04/2021 8:15 General Surgery, PGY-2R #[phone] blue surgery pager Attestation statement: I saw [...] - 08/03/2021 1455 EST Spiritual Care Department [employer] Note Re: Mathew Mendez : 1955 Room: [place] [address] Service: General Surgery Hinduism: Yazdanism Mathew has received a visit from the Spiritual Care Department on 08/03/2021. Assessment/Comments: Mathew spoke about his hospitalization and need for a second surgery in 3 months. He is doing well and needs to restart eating before he can go home. Citrus Fruit Packer provided a comforting presence, offered prayer and sacraments. DEMOGRAPHICS Spiritual Care Welcomed Patient Is Temple Importance Moderately Important Current Support System Spouse/Significant [...] to Process Issue CARE PLAN Plan Continued [employer] Support Consult With Additional Support Was Clergy Needed? Yes, provided, Law Firm Consultant TIME STAMP: Total time spent 15 minutes [...] results found for: ZINCMZN, COPPER, THIAMINE, FOLATE, [id number], METMMETHY, VITEALPH, RETINOL, VITD Lab Results Component [...] time OOB Ongoing monitor and follow up Shnanan Patel RD, CD (Call PAS or use [employer] to page RD covering this unit) * Ford Villa MD - 08/03/2021 0711 EST Surgery Progress Note Admit Date: 07/31/2021 Hospital Day: LOS: 2 days Date of Service: 08/03/2021 Chief Complaint/Procedure: PEH; Transferred from [facility] 24 Hr Events: - Was advanced [...] reversal) who presents as a transfer from [facility] after presenting with acute onset abdominal [...] Service: 08/02/2021 Chief Complaint/Procedure: PEH; Transferred from [facility] 24 Hr Events: NG removed, started [...] Type - 3 Shifts Including Current In: 1975.1 [P.O.:920; I.V.:606.1; TPN:387; IV Piggyback:63] Out: 1800 [...] reversal) who presents as a transfer from [facility] after presenting with acute onset abdominal [...] family, condo, apartment, prison, single room occupancy, [facility] funded hotel room, group skilled nursing) - Single family home Who does the patient live with? Lives with Yen Does the patient have access to their own bedroom/bathroom/kitchen - or is it shared with others? Shared with Name of housing complex (ex [employer], [facility], etc)- N/A Housing Authority/Managing Organization - N/A Community Care Providers (major case detective, [facility] nurse, etc) name and contact information- N/A [...] copy in paper chart @ [facility] DIRECTIVES FOR FINANCES: TRANSPORTATION: Transportation: Family, Self Transportation Additional Details: Yen can provide ride home at mo Patient expects to be discharged to: home with CULTURAL, CONFUCIANISM and/or LANGUAGE factors affecting health care/discharge planning: Spiritual/Cultural Requests: None Insurance Information: Medical Insurance: Yes Type of insurance: Medicare Medicare type: C ([facility] Medicare Advantage Plan) Referred to patient financial [...] Home Health Services: None DME Provider: Pharmacy: [id number] - [address] [address] Home Health: Other: POST HOSPITAL TRANSITION PLAN: [...] available if dc needs arise. Natalie Willis STUDENT SERVICES REP Call Center Team Leader II Pager: [phone] LIA WILLIS 08/01/2021 9:12 * Ashlie Greene MD - 08/01/2021 0820 EST Surgery Progress Note Admit Date: 07/31/2021 Hospital Day: LOS: 1 day Date of Service: 08/01/2021 Chief Complaint/Procedure: PEH s/p 24 Hr Events: Transferred from [facility] Admitted and NGT continued to [facility] Subjective: Patient feeling alright. Not having any [...] reversal) who presents as a transfer from [facility] after presenting with acute onset abdominal pain secondary to an incarcerated paraesophageal hernia. He was taken to the OR on 07/24 for anexploratory laparotomy, lysis of adhesions, reduction of his gastric contents, and suture gastropexy. Patient with ongoing signs Of partial obstruction. Will repeat UGI today. Plan: - NPO with NGT to [facility] - Repeat UGI today - Nutrition consult for TPN - Continue PICC - BID PPI - Heparin dvt ppx Ashlie Greene MD 08/01/2021 8:20 * Tiffanie Kerr RN - 07/31/20212031 EST Called to clear patients PICC line Data: Assessed patient's PICC line that was placed at [facility] in [facility]. Triple Lumen PICC to the Right Side. Action: Assessed PICC, all 3 lines flush well with brisk blood return. Non reflux valves changed. Dressing intact, on schedule to be changed this coming Wednesday 08/02 which is 7 days post placement date. Response: VAT will monitor PICC as needed per [facility] Policy. TIFFANIE KERR RN 07/31/2021 20:33 [...] reversal) who presents as a transfer from [facility] after presenting with acute onset abdominal [...] and was knee buckling. He presented to [facility] on 07/23, and CT scan revealed [...] was made to transfer the patient to [facility] for further management. On arrival to [...] reversal) who presents as a transfer from [facility] after presenting with acute onset abdominal [...] outlet obstruction and he was subsequently transferredto [facility] for further care after repeat barium [...] Arreola MD PGY-1 - General Surgery Pager #[phone] Attestation statement: I saw and examined the [...] documented in this encounter Consult Notes * Camronivan Elean Adry, RD - 08/01/2021 0946 ESTAssociated Order(s): CONSULT NUTRITION Nutrition consult: Patient Name: Mathew Mendez Admission Date: 07/31/2021 Admission Dx: Paraesophageal hernia Medical Summary: Chief Complaint: Abdominal pain ?? HPI: Mathew Mendez is a 66-year-old male with history of paraesophageal hernia, hypertension, GERD, CKD 4,and diverticulitis (status post small bowel resection, colostomy, and subsequent colostomy reversal) who presents as a transfer from [facility] after presenting with acute onset abdominal pain secondary to an incarcerated paraesophageal hernia Clinical Course Since Last RD Visit: Subjective: Pt states he has been eating well at home and denies recent wt loss. He takes B12 supplement at home Current Nutrition Orders: NPO Nutrition Focused Physical Findings: Edema: 0 Digestive Systems: Last BM JUVENILE CORRECTIONS OFFICER Skin: no issues NGT to suction Anthropometrics: [...] WNL Midaxillary Line: unable to assess Muscle: Scientologist region: WNL Clavicle Region: WNL Shoulder and [...] given at discharge? Yes Natalie Willis LMSW Call Center Team Leader II Pager: [phone] * Plan of Care - John Rocha [...] with pain meds. KUSHAL WANG 08/08/2021 20:06 Cosigned by Yunier Beltre RN at 08/08/2021 20:16 EDT * Plan of Care - Donna Carpenter [...] Documentation Flowsheets Taken 08/07/2021 1510 by Silvia Sams, RN Area of Focus: Pain/ Comfort Taken [...] Hiccups intermit. * Plan of Care - Kushal Wang - 08/07/2021 1308 EDT Problem: Pain: Goal: Pain level will decrease Outcome: Ongoing Data: 66 yr old male admitted with paraesophageal hernia. Rating pain as 4/10. Ambulating independently in hallway. Action: Gave pain meds per eMAR. Pt requesting pain meds at regular intervals. Response: Pain levels staying stable at 4/10. KUSHAL WANG 08/07/2021 13:08 Cosigned by Yunier Beltre RN at 08/07/2021 14:05 EDT * Plan of Care - Janette Duque [...] bed, at bedside. Nichole Peña 08/04/2021 10:47 Cosigned by Damian ([facility]), LOYD Moreno at 08/04/2021 15:05 EST * Plan of [...] floor and visitor policy. Meds given per MAR. PRN IV dilaudid and scheduled tylenol administered for pain. Vitals monitored. Hourly checked. Response: Pt pleasant and able to make needs known. Beds locked at lowest position. Call salazar within reach. WCTM. CEDRICK SANON RN 08/01/2021 2:47 * Plan of Care - Donna Carpenter RN - 07/31/2021 192 EST Pt arrived to room [facility] at approximately 1900 via EMS. Pt A&Ox4, reports pain is controlled, denies nausea. VSS. Blue GI paged for orders, Dr. Arreola in bedside. Verbal order to continue D51/2NS@80, made aware pt had TPN at prior [...] 14:46 EST FL UGI WO AIR W CURING OVEN TENDER Routine 08/01/2021 10:35 EST XR ABDOMEN 1 VIEW Routine 08/01/2021 8:3 4 EST COMPLETE BLOOD COUNT AND DIFFERENTIAL Routine 08/01/2021 5:26 EST PHOSPHORUS Routine 08/01/2021 5:25 EST MAGNESIUM Routine 08/01/2021 5:25 EST COMPREHENSIVE METABOLIC PANEL (CMP) Routine 08/01/2021 5:25 EST ZZCOVID-19 TEST [facility] PCR Today 07/31/2021 21:37 EST [...] 70 - 100 mg/dL 08/11/2021 6:[address] [facility] HN LAB POC COMMENT (GLUCOSE) Test Performed by Nursing Services 08/11/2021 6:[address] [facility] Blood CAPILLARY BLOOD / Unknown 08/11/2021 5:59 EDT 08/11/2021 6:00 EDT Sanjuana Gaona NP POINT OF CARE TEST ORDERABLES Final Result [facility] [address] [place] [address] * (ABNORMAL) COMPLETE BLOOD COUNT AND DIFFERENTIAL (08/11/2021 5:55 EDT) WBC 5.86 4.00 - 10.40 K/cmm 08/11/2021 6:[address] [facility] RBC 3.04(L) 4.36 - 5.78 M/cmm 08/11/2021 6:12 [facility] Hemoglobin 9.3(L) 13.8 - 17.3 gm/dL 08/11/2021 6:12 [facility] HCT 27.6(L) 39.5 - 50.2 % 08/11/2021 6:12 [facility] MCV 91 81 - 95 fl 08/11/2021 6:12 [facility] MCH 30.6 27.6 - 33.0 pg 08/11/2021 6:12 [facility] MCHC 33.7 32.8 - 36.4 gm/dL 08/11/2021 6:12 [facility] RDW-CV 13.1 <14.2 % 08/11/2021 6:12 [facility] RDW-SD 43.2 <46.0 fl 08/11/2021 6:12 [facility] PLT 188 141 - 377 K/cmm 08/11/2021 6:12 [facility] MPV 11.8 9.5 - 12.7 fl 08/11/2021 6:12 [facility] % Neutrophils 53.2 % 08/11/2021 6:12 [facility] % Lymphocytes 19.8 % 08/11/2021 6:12 [facility] % Monocytes 10.1 % 08/11/2021 6:[address] [facility] % Eosinophils 15.2 % 08/11/2021 6:12 [facility] % Basophils 1.2 % 08/11/2021 6:12 [facility] % Immature Grans 0.5 % 08/12/19 6:12 [facility] Absolute Neutrophils 3.12 2.20 - 8.85 K/cmm 08/11/2021 6:12 [facility] Absolute Lymphocytes 1.16 1.09 - 3.30 K/cmm 08/11/2021 6:12 [facility] Absolute Monocytes 0.59 0.10 - 0.80 K/cmm 08/11/2021 6:12 [facility] Absolute Eosinophils 0.89(H) 0.03 - 0.61 K/cmm 08/11/2021 6:12 [facility] ABS Basophils 0.07 0.01 - 0.11 K/cmm 08/11/2021 6:12 [facility] Absolute Immature Grans 0.03 0.00 - 0.06 K/cmm 08/11/2021 6:12 [facility] Type of Differential: Auto 08/11/2021 6:12 [facility] Blood VENOUS BLOOD / Unknown Venipuncture / Unknown 08/11/2021 5:55 EDT 08/11/2021 6:02 EDT us Yomi Arreola MD PACKAGES & DNA PROBE ORDERABLE S Final Result [facility] [address] [place] [address] * (ABNORMAL) PHOSPHORUS (08/11/2021 5:54 EDT) Phosphorus 4.6(H) 2.5 - 4.5 mg/dL 08/11/2021 6:[address] [facility] Blood VENOUS BLOOD / Unknown Venipuncture / Unknown 08/11/2021 5:54 EDT 08/11/2021 6:01 EDT Yomi Arreola MD CHEMISTRY & BLOOD GAS ORDERABL ES Final Result Performing Organization Address [facility] Co de Phone Number [facility] [address] [place] [address] * MAGNESIUM (08/11/2021 5:54 EDT) Magnesium 1.8 1.7 - 2.8 mg/dL 08/11/2021 6:[address] [facility] Blood VENOUS BLOOD / Unknown Venipuncture / Unknown 08/11/2021 5:54 EDT 08/11/2021 6:01 EDT Yomi Arreola MD CHEMISTRY & BLOOD GAS ORDERABL ES Final Result Performing Organization Address [facility] de Phone Number [facility] [address] [place] [address] * (ABNORMAL) COMPREHENSIVE METABOLIC PANEL (CMP) (08/11/2021 5:54 EDT) Sodium 136 136 - 145 mmol/L 08/11/2021 6:33 [facility] Potassium 4.6 3.5 - 5.0 mmol/L 08/11/2021 6:33 [facility] Chloride 101 96 - 110 mmol/L 08/11/2021 6:33 [facility] CO2 Total 24 22 - 32 mmol/L 08/11/2021 6:33 [facility] Glucose 89 70 - 100 mg/dL 08/11/2021 6:33 [facility] BUN 55(H) 10 - 26 mg/dL 08/11/2021 6:33 [facility] Creatinine 2.30(H) 0.66 - 1.25 mg/dL 08/11/2021 6:33 [facility] eGFR 28(L) >60 mL/min/1.7 3m2 08/11/2021 6:33 [facility] Total Protein 6.2(L) 6.3 - 8.2 g/dL 08/11/2021 6:33 [facility] Albumin 3.8 3.4 - 4.9 g/dL 08/11/2021 6:33 [facility] Alkaline Phosphatase 68 38 - 126 U/L 08/11/2021 6:33 [facility] AST 19 15 - 46 U/L 08/11/2021 6:33 [facility] ALT 16 <50 U/L 08/11/2021 6:33 [facility] Bilirubin, Total <0.5 <1.4 mg/dL 08/12/19 6:33 [facility] Calcium 9.2 8.5 - 10.5 mg/dL 08/11/2021 6:33 [facility] Albumin/Globulin Ratio 1.6 1.0 - 2.5 08/11/2021 6:33 [facility] Anion Gap 11 5 - 14 08/11/2021 6:33 [facility] Blood VENOUS BLOOD / Unknown Venipuncture / Unknown 08/11/2021 5:54 EDT 08/11/2021 6:01 EDT us Yomi Arreola MD CHEMISTRY & BLOOD GAS ORDERABL ES Final Result [facility] [address] [place] [address] * POCT GLUCOSE, INTERFACED (08/10/2021 5:59 EDT) Glucose, POC 99 70 - 100 mg/dL 08/10/2021 6:[address] [facility] HN LAB POC COMMENT (GLUCOSE) Test Performed by Nursing Services 08/10/2021 6:[address] [facility] Blood CAPILLARY BLOOD / Unknown 08/10/2021 5:59 EDT 08/10/2021 6:00 EDT Sanjuana N Mucia [employer]WORK [employer]GRAM MANAGER POINT OF CARE TEST ORDERABLES Final Result Performing Organization Address [facility] Co de Phone Number [facility] [address] [place] [address] * (ABNORMAL) PHOSPHORUS (08/10/2021 5:56 EDT) Pathologist [facility] Phosphorus 4.7(H) 2.5 - 4.5 mg/dL 08/10/2021 6:[address] [facility] Blood VENOUS BLOOD / Unknown Venipuncture / Unknown 08/10/2021 5:56 EDT 08/10/2021 6:08 EDT Yomi Arreola MD CHEMISTRY & BLOOD GAS ORDERABL ES Final Result Performing Organization Address [facility] de Phone Number [facility] [address] [place] [address] * MAGNESIUM (08/10/2021 5:56 EDT) [facility] Magnesium 1.9 1.7 - 2.8 mg/dL 08/10/2021 6:[address] [facility] Blood VENOUS BLOOD / Unknown Venipuncture / Unknown 08/10/2021 5:56 EDT 08/10/2021 6:08 EDT Yomi Arreola MD CHEMISTRY & BLOOD GAS ORDERABL ES Final Result Performing Organization Address [facility] de Phone Number [facility] [address] [place] [address] * (ABNORMAL) COMPLETE BLOOD COUNT AND DIFFERENTIAL (08/10/2021 5:56 EDT) [facility] WBC 6.38 4.00 - 10.40 K/cmm 08/10/2021 6:[address] [facility] RBC 3.14(L) 4.36 - 5.78 M/cmm 08/10/2021 6:[address] [facility] Hemoglobin 9.7(L) 13.8 - 17.3 gm/dL 08/10/2021 6:[address] [facility] HCT 28.3(L) 39.5 - 50.2 % 08/10/2021 6:12 [facility] MCV 90 81 - 95 fl 08/10/2021 6:12 [facility] MCH 30.9 27.6 - 33.0 pg 08/10/2021 6:12 [facility] MCHC 34.3 32.8 - 36.4 gm/dL 08/10/2021 6:12 [facility] RDW-CV 13.1 <14.2 % 08/10/2021 6:12 [facility] RDW-SD 43.0 <46.0 fl 08/10/2021 6:12 [facility] PLT 204 141 - 377 K/cmm 08/10/2021 6:12 [facility] MPV 11.5 9.5 - 12.7 fl 08/10/2021 6:12 [facility] % Neutrophils 59.4 % 08/10/2021 6:12 [facility] % Lymphocytes 16.8 % 08/10/2021 6:12 [facility] % Monocytes 7.8 % 08/10/2021 6:12 [facility] % Eosinophils 14.1 % 08/10/2021 6:12 [facility] % Basophils 1.4 % 08/10/2021 6:12 [facility] % Immature Grans 0.5 % 08/11/19 6:12 [facility] Absolute Neutrophils 3.79 2.20 - 8.85 K/cmm 08/10/2021 6:12 [facility] Absolute Lymphocytes 1.07(L) 1.09 - 3.30 K/cmm 08/10/2021 6:12 [facility] Absolute Monocytes 0.50 0.10 - 0.80 K/cmm 08/10/2021 6:12 [facility] Absolute Eosinophils 0.90(H) 0.03 - 0.61 K/cmm 08/10/2021 6:12 [facility] ABS Basophils 0.09 0.01 - 0.11 K/cmm 08/10/2021 6:12 [facility] Absolute Immature Grans 0.03 0.00 - 0.06 K/cmm 08/10/2021 6:12 [facility] Type of Differential: Auto 08/10/2021 6:12 [facility] Blood VENOUS BLOOD / Unknown Venipuncture / Unknown 08/10/2021 5:56 EDT 08/10/2021 6:05 EDT us Yomi Arreola MD PACKAGES & DNA PROBE ORDERABLE S Final Result [facility] [address] [place] [address] * (ABNORMAL) COMPREHENSIVE METABOLIC PANEL (CMP) (08/10/2021 5:56 EDT) Sodium 139 136 - 145 mmol/L 08/10/2021 6:39 [facility] Potassium 4.7 3.5 - 5.0 mmol/L 08/10/2021 6:39 [facility] Chloride 101 96 - 110 mmol/L 08/10/2021 6:39 [facility] CO2 Total 23 22 - 32 mmol/L 08/10/2021 6:39 [facility] Glucose 97 70 - 100 mg/dL 08/10/2021 6:39 [facility] BUN 58(H) 10 - 26 mg/dL 08/10/2021 6:39 [facility] Creatinine 2.30(H) 0.66 - 1.25 mg/dL 08/10/2021 6:39 [facility] eGFR 28(L) >60 mL/min/1.7 3m2 08/10/2021 6:39 [facility] Total Protein 6.7 6.3 - 8.2 g/dL 08/10/2021 6:39 [facility] Albumin 4.2 3.4 - 4.9 g/dL 08/10/2021 6:39 [facility] Alkaline Phosphatase 75 38 - 126 U/L 08/10/2021 6:39 [facility] AST 20 15 - 46 U/L 08/10/2021 6:39 [facility] ALT 17 <50 U/L 08/10/2021 6:39 [facility] Bilirubin, Total <0.5 <1.4 mg/dL 08/11/19 6:39 [facility] Calcium 9.8 8.5 - 10.5 mg/dL 08/10/2021 6:39 [facility] Albumin/Globulin Ratio 1.7 1.0 - 2.5 08/10/2021 6:39 [facility] Anion Gap 15(H) 5 - 14 08/10/2021 6:39 [facility] Blood VENOUS BLOOD / Unknown Venipuncture / Unknown 08/10/2021 5:56 EDT 08/10/2021 6:08 EDT us Yomi Arreola MD CHEMISTRY & BLOOD GAS ORDERABL ES Final Result Performing Organization Address City/[facility]/ZIP Co de Phone Number [facility] [address] [place] [address] * (ABNORMAL) POCT GLUCOSE, INTERFACED (08/09/2021 5:15 EDT) Glucose, POC 116(H) 70 - 100 mg/dL 08/09/2021 5:[address] [facility] HN LAB POC COMMENT (GLUCOSE) Test Performed by Nursing Services 08/09/2021 5:[address] [facility] Blood CAPILLARY BLOOD / Unknown 08/09/2021 5:15 EDT 08/09/2021 5:17 EDT us Sanjuana Gaona NP POINT OF CARE TEST ORDERABLES Final Result Performing Organization Address City/[facility]/ZIP Co de Phone Number [facility] [address] [place] [address] * PHOSPHORUS (08/09/2021 5:13 EDT) [facility] Phosphorus 3.8 2.5 - 4.5 mg/dL 08/09/2021 6:[address] [facility] Blood VENOUS BLOOD / Unknown Venipuncture / Unknown 08/09/2021 5:13 EDT 08/09/2021 5:23 EDT Yomi Arreola MD CHEMISTRY & BLOOD GAS ORDERABL ES Final Result Performing Organization Address [facility]/ZIP Co de Phone Number [facility] [address] [place] [address] * MAGNESIUM (08/09/2021 5:13 EDT) [facility] Magnesium 2.0 1.7 - 2.8 mg/dL 08/09/2021 6:[address] [facility] Blood VENOUS BLOOD / Unknown Venipuncture / Unknown 08/09/2021 5:13 EDT 08/09/2021 5:23 EDT Yomi Arreola MD CHEMISTRY & BLOOD GAS ORDERABL ES Final Result Performing Organization Address [facility] Co de Phone Number [facility] [address] [place] [address] * (ABNORMAL) COMPLETE BLOOD COUNT AND DIFFERENTIAL (08/09/2021 5:13 EDT) [facility] WBC 7.59 4.00 - 10.40 K/cmm 08/09/2021 5:[address] [facility] RBC 2.90(L) 4.36 - 5.78 M/cmm 08/09/2021 5:[address] [facility] Hemoglobin 8.9(L) 13.8 - 17.3 gm/dL 08/09/2021 5:[address] [facility] HCT 26.3(L) 39.5 - 50.2 % 08/09/2021 5:[address] [facility] MCV 91 81 - 95 fl 08/09/2021 5:27 [facility] MCH 30.7 27.6 - 33.0 pg 08/09/2021 5:27 [facility] MCHC 33.8 32.8 - 36.4 gm/dL 08/09/2021 5:27 [facility] RDW-CV 13.0 <14.2 % 08/09/2021 5:27 [facility] RDW-SD 43.0 <46.0 fl 08/09/2021 5:27 [facility] PLT 209 141 - 377 K/cmm 08/09/2021 5:27 [facility] MPV 11.7 9.5 - 12.7 fl 08/09/2021 5:27 [facility] % Neutrophils 69.0 % 08/09/2021 5:27 [facility] % Lymphocytes 11.7 % 08/09/2021 5:27 [facility] % Monocytes 7.4 % 08/09/2021 5:27 [facility] % Eosinophils 10.4 % 08/09/2021 5:27 [facility] % Basophils 1.2 % 08/09/2021 5:27 [facility] % Immature Grans 0.3 % 08/10/19 5:27 [facility] Absolute Neutrophils 5.24 2.20 - 8.85 K/cmm 08/09/2021 5:27 [facility] Absolute Lymphocytes 0.89(L) 1.09 - 3.30 K/cmm 08/09/2021 5:27 [facility] Absolute Monocytes 0.56 0.10 - 0.80 K/cmm 08/09/2021 5:27 [facility] Absolute Eosinophils 0.79(H) 0.03 - 0.61 K/cmm 08/09/2021 5:27 [facility] ABS Basophils 0.09 0.01 - 0.11 K/cmm 08/09/2021 5:27 [facility] Absolute Immature Grans 0.02 0.00 - 0.06 K/cmm 08/09/2021 5:[address] [facility] Type of Differential: Auto 08/09/2021 5:27 [facility] Blood VENOUS BLOOD / Unknown Venipuncture / Unknown 08/09/2021 5:13 EDT 08/09/2021 5:18 EDT us Yomi Arreola MD PACKAGES & DNA PROBE ORDERABLE S Final Result [facility] [address] [place] [address] * (ABNORMAL) COMPREHENSIVE METABOLIC PANEL (CMP) (08/09/2021 5:13 EDT) Sodium 138 136 - 145 mmol/L 08/09/2021 6:01 [facility] Potassium 4.4 3.5 - 5.0 mmol/L 08/09/2021 6:01 [facility] Chloride 104 96 - 110 mmol/L 08/09/2021 6:01 [facility] CO2 Total 22 22 - 32 mmol/L 08/09/2021 6:01 [facility] Glucose 109(H) 70 - 100 mg/dL 08/09/2021 6:01 [facility] BUN 59(H) 10 - 26 mg/dL 08/09/2021 6:01 [facility] Creatinine 2.05(H) 0.66 - 1.25 mg/dL 08/09/2021 6:01 [facility] eGFR 33(L) >60 mL/min/1.7 3m2 08/09/2021 6:01 [facility] Total Protein 6.2(L) 6.3 - 8.2 g/dL 08/09/2021 6:01 [facility] Albumin 3.7 3.4 - 4.9 g/dL 08/09/2021 6:01 [facility] Alkaline Phosphatase 67 38 - 126 U/L 08/09/2021 6:01 [facility] AST 18 15 - 46 U/L 08/09/2021 6:01 [facility] ALT 16 <50 U/L 08/09/2021 6:01 [facility] Bilirubin, Total <0.5 <1.4 mg/dL 08/10/19 6:01 [facility] Calcium 9.7 8.5 - 10.5 mg/dL 08/09/2021 6:01 [facility] Albumin/Globulin Ratio 1.5 1.0 - 2.5 08/09/2021 6:01 [facility] Anion Gap 12 5 - 14 08/09/2021 6:01 [facility] Blood VENOUS BLOOD / Unknown Venipuncture / Unknown 08/09/2021 5:13 EDT 08/09/2021 5:23 EDT Yomi Arreola MD CHEMISTRY & BLOOD GAS ORDERABL ES Final Result Performing Organization Address City/[facility] Co de Phone Number [facility] [address] [place] [address] * PHOSPHORUS (08/08/2021 6:04 EDT) Phosphorus 4.4 2.5 - 4.5 mg/dL 08/08/2021 7:[address] [facility] Blood VENOUS BLOOD / Unknown Venipuncture / Unknown 08/08/2021 6:04 EDT 08/08/2021 6:17 EDT Yomi Arreola MD CHEMISTRY & BLOOD GAS ORDERABL ES Final Result [facility] [address] [place] [address] * MAGNESIUM (08/08/2021 6:04 EDT) Magnesium 2.0 1.7 - 2.8 mg/dL 08/08/2021 7:[address] [facility] Blood VENOUS BLOOD / Unknown Venipuncture / Unknown 08/08/2021 6:04 EDT 08/08/2021 6:17 EDT us Yomi Arreola MD CHEMISTRY & BLOOD GAS ORDERABL ES Final Result [facility] [address] [place] [address] * (ABNORMAL) COMPLETE BLOOD COUNT AND DIFFERENTIAL (08/08/2021 6:04 EDT) WBC 6.05 4.00 - 10.40 K/cmm 08/[facility]2021 [facility] RBC 2.92(L) 4.36 - 5.78 M/cmm 08/08/2021 6:22 [facility] Hemoglobin 8.7(L) 13.8 - 17.3 gm/dL 08/08/2021 6:22 [facility] HCT 27.1(L) 39.5 - 50.2 % 08/08/2021 6:22 [facility] MCV 93 81 - 95 fl 08/08/2021 6:22 [facility] MCH 29.8 27.6 - 33.0 pg 08/08/2021 6:22 [facility] MCHC 32.1(L) 32.8 - 36.4 gm/dL 08/08/2021 6:22 [facility] RDW-CV 12.9 <14.2 % 08/08/2021 6:22 [facility] RDW-SD 43.9 <46.0 fl 08/08/2021 6:22 [facility] PLT 206 141 - 377 K/cmm 08/08/2021 6:22 [facility] MPV 11.6 9.5 - 12.7 fl 08/08/2021 6:22 [facility] % Neutrophils 57.2 % 08/08/2021 6:22 [facility] % Lymphocytes 17.7 % 08/08/2021 6:22 [facility] % Monocytes 9.3 % 08/08/2021 6:22 [facility] % Eosinophils 14.0 % 08/08/2021 6:22 [facility] % Basophils 1.3 % 08/08/2021 6:22 [facility] % Immature Grans 0.5 % 08/09/19 6:22 [facility] Absolute Neutrophils 3.46 2.20 - 8.85 K/cmm 08/08/2021 6:22 [facility] Absolute Lymphocytes 1.07(L) 1.09 - 3.30 K/cmm 08/08/2021 6:22 [facility] Absolute Monocytes 0.56 0.10 - 0.80 K/cmm 08/08/2021 6:22 [facility] Absolute Eosinophils 0.85(H) 0.03 - 0.61 K/cmm 08/08/2021 6:22 [facility] ABS Basophils 0.08 0.01 - 0.11 K/cmm 08/08/2021 6:22 [facility] Absolute Immature Grans 0.03 0.00 - 0.06 K/cmm 08/08/2021 6:22 [facility] Type of Differential: Auto 08/08/2021 6:22 [facility] Blood VENOUS BLOOD / Unknown Venipuncture / Unknown 08/08/2021 6:04 EDT 08/08/2021 6:15 EDT us Yomi Arreola MD PACKAGES & DNA PROBE ORDERABLE S Final Result [facility] [address] [place] [address] * (ABNORMAL) COMPREHENSIVE METABOLIC PANEL (CMP) (08/08/2021 6:04 EDT) Sodium 138 136 - 145 mmol/L 08/08/2021 7:02 [facility] Potassium 4.7 3.5 - 5.0 mmol/L 08/08/2021 7:02 [facility] Chloride 106 96 - 110 mmol/L 08/08/2021 7:02 [facility] CO2 Total 19(L) 22 - 32 mmol/L 08/08/2021 7:02 [facility] Glucose 114(H) 70 - 100 mg/dL 08/08/2021 7:02 [facility] BUN 56(H) 10 - 26 mg/dL 08/08/2021 7:02 [facility] Creatinine 2.17(H) 0.66 - 1.25 mg/dL 08/08/2021 7:02 [facility] eGFR 30(L) >60 mL/min/1.7 3m2 08/08/2021 7:02 [facility] Total Protein 6.2(L) 6.3 - 8.2 g/dL 08/08/2021 7:02 [facility] Albumin 3.7 3.4 - 4.9 g/dL 08/08/2021 7:02 [facility] Alkaline Phosphatase 66 38 - 126 U/L 08/08/2021 7:02 [facility] AST 20 15 - 46 U/L 08/08/2021 7:02 [facility] ALT 16 <50 U/L 08/08/2021 7:02 [facility] Bilirubin, Total <0.5 <1.4 mg/dL 08/09/19 7:02 [facility] Calcium 9.5 8.5 - 10.5 mg/dL 08/08/2021 7:02 [facility] Albumin/Globulin Ratio 1.5 1.0 - 2.5 08/08/2021 7:02 [facility] Anion Gap 13 5 - 14 08/08/2021 7:02 [facility] Blood VENOUS BLOOD / Unknown Venipuncture / Unknown 08/08/2021 6:04 EDT 08/08/2021 6:17 EDT Yomi Arreola MD CHEMISTRY & BLOOD GAS ORDERABL ES Final Result Performing Organization Address City/[facility]/ZIP Co de Phone Number [facility] [address] [place] [address] * [place] OUTSIDE IMAGES (08/07/2021 13:27 EDT) Narrative 08/07/2021 13:27 EDT This is a non-reportable exam. us External Imaging IMG OTHER IMAGING ORDERABLES Fi nal Result * TRIGLYCERIDE (08/07/2021 5:12 EDT) Pathologist [facility] Triglyceride 196 See Note mg/dL 08/07/2021 5:[address] [facility] Comment: Normal: ? <150 mg/dL Borderline High: ??150 - 199 mg/dL High: ? 200 - 499 mg/dL Very High: ?> or = 500 mg/dL Blood VENOUS BLOOD / Unknown Venipuncture / Unknown 08/07/2021 5:12 EDT 08/07/2021 5:16 EDT Result [facility] Sanjuana Gaona NP CHEMISTRY & BLOOD GAS ORDERAB LES Final Result Performing Organization Address [facility] Co de Phone Number [facility] [address] [place] [address] * BILIRUBIN DIRECT/INDIRECT (08/07/2021 5:12 EDT) Conjugated Bilirubin 0.0 <=0.3 mg/dL 08/07/2021 5:[address] [facility] Unconjugated Bilirubin 0.0 <=1.1 mg/dL 08/07/2021 5:[address] [facility] Blood VENOUS BLOOD / Unknown Venipuncture / Unknown 08/07/2021 5:12 EDT 08/07/2021 5:16 EDT Sanjuana Gaona [employer] CHEMISTRY & BLOOD GAS ORDERAB LES Final Result Performing Organization Address [facility]/ZIP Co de Phone Number [facility] [address] [place] [address] * PHOSPHORUS (08/07/2021 5:12 EDT) Pathologist [facility] Phosphorus 4.1 2.5 - 4.5 mg/dL 08/07/2021 5:[address] [facility] Blood VENOUS BLOOD / Unknown Venipuncture / Unknown 08/07/2021 5:12 EDT 08/07/2021 5:16 EDT Yomi Arreola MD CHEMISTRY & BLOOD GAS ORDERABL ES Final Result Performing Organization Address [facility] Co de Phone Number [facility] [address] [place] [address] * MAGNESIUM (08/07/2021 5:12 EDT) Pathologist [facility] Magnesium 2.1 1.7 - 2.8 mg/dL 08/07/2021 5:[address] [facility] Blood VENOUS BLOOD / Unknown Venipuncture / Unknown 08/07/2021 5:12 EDT 08/07/2021 5:16 EDT Yomi Arreola MD CHEMISTRY & BLOOD GAS ORDERABL ES Final Result Performing Organization Address [facility] de Phone Number [facility] [address] [place] [address] * (ABNORMAL) COMPLETE BLOOD COUNT AND DIFFERENTIAL (08/07/2021 5:12 EDT) Pathologist [facility] WBC 5.83 4.00 - 10.40 K/cmm 08/07/2021 5:[address] [facility] RBC 2.73(L) 4.36 - 5.78 M/cmm 08/07/2021 5:[address] [facility] Hemoglobin 8.4(L) 13.8 - 17.3 gm/dL 08/07/2021 5:[address] [facility] HCT 25.5(L) 39.5 - 50.2 % 08/07/2021 5:23 [facility] MCV 93 81 - 95 fl 08/07/2021 5:23 [facility] MCH 30.8 27.6 - 33.0 pg 08/07/2021 5:23 [facility] MCHC 32.9 32.8 - 36.4 gm/dL 08/07/2021 5:23 [facility] RDW-CV 12.9 <14.2 % 08/07/2021 5:23 [facility] RDW-SD 43.6 <46.0 fl 08/07/2021 5:23 [facility] PLT 204 141 - 377 K/cmm 08/07/2021 5:23 [facility] MPV 11.5 9.5 - 12.7 fl 08/07/2021 5:23 [facility] % Neutrophils 54.6 % 08/07/2021 5:23 [facility] % Lymphocytes 17.3 % 08/07/2021 5:23 [facility] % Monocytes 10.1 % 08/07/2021 5:23 [facility] % Eosinophils 16.0 % 08/07/2021 5:23 [facility] % Basophils 1.5 % 08/07/2021 5:23 [facility] % Immature Grans 0.5 % 08/08/19 5:23 [facility] Absolute Neutrophils 3.18 2.20 - 8.85 K/cmm 08/07/2021 5:23 [facility] Absolute Lymphocytes 1.01(L) 1.09 - 3.30 K/cmm 08/07/2021 5:23 [facility] Absolute Monocytes 0.59 0.10 - 0.80 K/cmm 08/07/2021 5:23 [facility] Absolute Eosinophils 0.93(H) 0.03 - 0.61 K/cmm 08/07/2021 5:23 [facility] ABS Basophils 0.09 0.01 - 0.11 K/cmm 08/07/2021 5:23 [facility] Absolute Immature Grans 0.03 0.00 - 0.06 K/cmm 08/07/2021 5:23 [facility] Type of Differential: Auto 08/07/2021 5:23 [facility] Blood VENOUS BLOOD / Unknown Venipuncture / Unknown 08/07/2021 5:12 EDT 08/07/2021 5:16 EDT us Ymoi Arreola MD PACKAGES & DNA PROBE ORDERABLE S Final Result [facility] [address] [place] [address] * (ABNORMAL) COMPREHENSIVE METABOLIC PANEL (CMP) (08/07/2021 5:12 EDT) Sodium 136 136 - 145 mmol/L 08/07/2021 5:45 [facility] Potassium 4.7 3.5 - 5.0 mmol/L 08/07/2021 5:45 [facility] Chloride 106 96 - 110 mmol/L 08/07/2021 5:45 [facility] CO2 Total 21(L) 22 - 32 mmol/L 08/07/2021 5:45 [facility] Glucose 115(H) 70 - 100 mg/dL 08/07/2021 5:45 [facility] BUN 54(H) 10 - 26 mg/dL 08/07/2021 5:45 [facility] Creatinine 2.04(H) 0.66 - 1.25 mg/dL 08/07/2021 5:45 [facility] eGFR 33(L) >60 mL/min/1.7 3m2 08/07/2021 5:45 [facility] Total Protein 5.9(L) 6.3 - 8.2 g/dL 08/07/2021 5:45 [facility] Albumin 3.5 3.4 - 4.9 g/dL 08/07/2021 5:45 [facility] Alkaline Phosphatase 60 38 - 126 U/L 08/07/2021 5:45 [facility] AST 19 15 - 46 U/L 08/07/2021 5:45 [facility] ALT 14 <50 U/L 08/07/2021 5:45 [facility] Bilirubin, Total <0.5 <1.4 mg/dL 08/08/19 5:45 [facility] Calcium 9.1 8.5 - 10.5 mg/dL 08/07/2021 5:45 [facility] Albumin/Globulin Ratio 1.5 1.0 - 2.5 08/07/2021 5:45 [facility] Anion Gap 9 5 - 14 08/07/2021 5:45 [facility] Blood VENOUS BLOOD / Unknown Venipuncture / Unknown 08/07/2021 5:12 EDT 08/07/2021 5:16 EDT us Yomi Arreola MD CHEMISTRY & BLOOD GAS ORDERABL ES Final Result [facility] [address] [place] [address] * (ABNORMAL) COMPREHENSIVE METABOLIC PANEL (CMP) (08/06/2021 7:44 EDT) Sodium 138 136 - 145 mmol/L 08/06/2021 8:19 [facility] Potassium 4.8 3.5 - 5.0 mmol/L 08/06/2021 8:19 [facility] Chloride 104 96 - 110 mmol/L 08/06/2021 8:19 [facility] CO2 Total 21(L) 22 - 32 mmol/L 08/06/2021 8:19 [facility] Glucose 102(H) 70 - 100 mg/dL 08/06/2021 8:19 [facility] BUN 55(H) 10 - 26 mg/dL 08/06/2021 8:19 [facility] Creatinine 2.17(H) 0.66 - 1.25 mg/dL 08/06/2021 8:19 [facility] eGFR 30(L) >60 mL/min/1.7 3m2 08/06/2021 8:19 [facility] Total Protein 6.8 6.3 - 8.2 g/dL 08/06/2021 8:19 [facility] Albumin 4.1 3.4 - 4.9 g/dL 08/06/2021 8:19 [facility] Alkaline Phosphatase 70 38 - 126 U/L 08/06/2021 8:19 [facility] AST 21 15 - 46 U/L 08/06/2021 8:19 [facility] ALT 15 <50 U/L 08/06/2021 8:19 [facility] Bilirubin, Total <0.5 <1.4 mg/dL 08/07/19 8:19 [facility] Calcium 9.6 8.5 - 10.5 mg/dL 08/06/2021 8:19 [facility] Albumin/Globulin Ratio 1.5 1.0 - 2.5 08/06/2021 8:19 [facility] Anion Gap 13 5 - 14 08/06/2021 8:19 [facility] Blood VENOUS BLOOD / Unknown Venipuncture / Unknown 08/06/2021 7:44 EDT 08/06/2021 7:52 EDT us Yomi Arreola MD CHEMISTRY & BLOOD GAS ORDERABL ES Final Result [facility] [address] [place] [address] * POCT GLUCOSE, INTERFACED (08/06/2021 6:32 EDT) Glucose, POC 98 70 - 100 mg/dL 08/06/2021 7:33 [facility] HN LAB POC COMMENT (GLUCOSE) Test Performed by Nursing Services 08/06/2021 7:[address] [facility] Blood CAPILLARY BLOOD / Unknown 08/06/2021 6:32 EDT 08/06/2021 7:33 EDT Sanjuana Gaona NP POINT OF CARE TEST ORDERABLES Final Result [facility] [address] [place] [address] * PHOSPHORUS (08/06/2021 6:09 EDT) Pathologist [facility] Phosphorus 08/07/2021 9:[address] [facility] Comment: Question specimen contaminated. This is a corrected result. Previous result was 4.4 mg/dL on 08/06/2021 at 0704 EDT Blood VENOUS BLOOD / Unknown Venipuncture / Unknown 08/06/2021 6:09 EDT 08/06/2021 6:34 EDT Yomi Arreola MD CHEMISTRY & BLOOD GAS ORDERABL ES Edited Result - Final Performing Organization Address [facility]/ZIP Co de Phone Number [facility] [address] [place] [address] * MAGNESIUM (08/06/2021 6:09 EDT) [facility] Magnesium 08/07/2021 9:[address] [facility] Comment: Question specimen contaminated. This is a corrected result. Previous result was 2.4 mg/dL on 08/06/2021 at 0704 EDT Blood VENOUS BLOOD / Unknown Venipuncture / Unknown 08/06/2021 6:09 EDT 08/06/2021 6:34 EDT Yomi Arreola MD CHEMISTRY & BLOOD GAS ORDERABL ES Edited Result - Final [facility] [address] [place] [address] * (ABNORMAL) COMPLETE BLOOD COUNT AND DIFFERENTIAL (08/06/2021 6:09 EDT) WBC 6.86 4.00 - 10.40 K/cmm 08/06/2021 6:34 [facility] RBC 2.63(L) 4.36 - 5.78 M/cmm 08/06/2021 6:34 [facility] Hemoglobin 8.4(L) 13.8 - 17.3 gm/dL 08/06/2021 6:34 [facility] HCT 25.2(L) 39.5 - 50.2 % 08/06/2021 6:34 [facility] MCV 96(H) 81 - 95 fl 08/06/2021 6:34 [facility] MCH 31.9 27.6 - 33.0 pg 08/06/2021 6:34 [facility] MCHC 33.3 32.8 - 36.4 gm/dL 08/06/2021 6:34 [facility] RDW-CV 12.9 <14.2 % 08/06/2021 6:34 [facility] RDW-SD 45.7 <46.0 fl 08/06/2021 6:34 [facility] PLT 200 141 - 377 K/cmm 08/06/2021 6:34 [facility] MPV 11.8 9.5 - 12.7 fl 08/06/2021 6:34 [facility] % Neutrophils 61.9 % 08/06/2021 6:34 [facility] % Lymphocytes 14.0 % 08/06/2021 6:34 [facility] % Monocytes 8.9 % 08/06/2021 6:34 [facility] % Eosinophils 13.7 % 08/06/2021 6:34 [facility] % Basophils 1.2 % 08/06/2021 6:34 [facility] % Immature Grans 0.3 % 08/07/19 6:34 [facility] Absolute Neutrophils 4.25 2.20 - 8.85 K/cmm 08/06/2021 6:[address] [facility] Absolute Lymphocytes 0.96(L) 1.09 - 3.30 K/cmm 08/06/2021 6:[address] [facility] Absolute Monocytes 0.61 0.10 - 0.80 K/cmm 08/06/2021 6:34 [facility] Absolute Eosinophils 0.94(H) 0.03 - 0.61 K/cmm 08/06/2021 6:[address] [facility] ABS Basophils 0.08 0.01 - 0.11 K/cmm 08/06/2021 6:34 [facility] Absolute Immature Grans 0.02 0.00 - 0.06 K/cmm 08/06/2021 6:34 [facility] Type of Differential: Auto 08/06/2021 6:34 [facility] Blood VENOUS BLOOD / Unknown Venipuncture / Unknown 08/06/2021 6:09 EDT 08/06/2021 6:17 EDT us Yomi Arreola MD PACKAGES & DNA PROBE ORDERABLE S Final Result [facility] [address] [place] [address] * COMPREHENSIVE METABOLIC PANEL (CMP) (08/06/2021 6:09 EDT) Sodium 08/07/2021 9:[address] [facility] Comment: Question specimen contaminated. This is a corrected result. Previous result was 134 mmol/L on 08/06/2021 at 0718 EDT Potassium 08/07/2021 9:[address] [facility] Comment: Question specimen contaminated. This is a corrected result. Previous result was 5.8 mmol/L on 08/06/2021 at 0718 EDT Chloride 08/07/2021 9:[address] [facility] Comment: Question specimen contaminated. This is a corrected result. Previous result was 102 mmol/L on 08/06/2021 at 0718 EDT CO2 Total 08/07/2021 9:[address] [facility] Comment: Question specimen contaminated. This is a corrected result. Previous result was 20 mmol/L on 08/06/2021 at 0718 EDT Glucose 08/07/2021 9:[address] [facility] Comment: Question specimen contaminated. This is a corrected result. Previous result was 527 mg/dL on 08/06/2021 at 0718 EDT BUN 08/07/2021 9:40 [facility] Comment: Question specimen contaminated. This is a corrected result. Previous result was 51 mg/dL on 08/06/2021 at 0718 EDT Creatinine 08/07/2021 9:40 [facility] Comment: Question specimen contaminated. This is a corrected result. Previous result was 2.05 mg/dL on 08/06/2021 at 0718 EDT eGFR 08/07/2021 9:40 [facility] Comment: Question specimen contaminated. This is a corrected result. Previous result was 33 mL/min/1.73m2 on 08/06/2021 at 0718 EDT Total Protein 08/07/2021 9:[address] [facility] Comment: Question specimen contaminated. This is a corrected result. Previous result was 5.4 g/dL on 08/06/2021 at 0718 EDT Albumin 08/07/2021 9:[address] [facility] Comment: Question specimen contaminated. This is a corrected result. Previous result was 3.3 g/dL on 08/06/2021 at 0718 EDT Alkaline Phosphatase 08/07/2021 9:40 [facility] Comment: Question specimen contaminated. This is a corrected result. Previous result was 46 U/L on 08/06/2021 at 0718 EDT AST 08/07/2021 9:[address] [facility] Comment: Question specimen contaminated. This is a corrected result. Previous result was 20 U/L on 08/06/2021 at 0718 EDT ALT 08/07/2021 9:[address] [facility] Comment: Question specimen contaminated. This is a corrected result. Previous result was 13 U/L on 08/06/2021 at 0718 EDT Bilirubin, Total 08/08/19 9:[address] [facility] Comment: Question specimen contaminated. This is a corrected result. Previous result was <0.5 mg/dL on 08/06/2021 at 0718 EDT Calcium 08/07/2021 9:[address] [facility] Comment: Question specimen contaminated. This is a corrected result. Previous result was 9.6 mg/dL on 08/06/2021 at 0718 EDT Albumin/Globulin Ratio 08/07/2021 9:[address] [facility] Comment: Question specimen contaminated. This is a corrected result. Previous result was 1.6 on 08/06/2021 at 0718 EDT Anion Gap 08/07/2021 9:[address] [facility] Comment:This is a corrected result. Previous result was 12 on 08/06/2021 at 0718 EDT Blood VENOUS BLOOD / Unknown Venipuncture / Unknown 08/06/2021 6:09 EDT 08/06/2021 6:34 EDT us Yomi Arreola MD CHEMISTRY & BLOOD GAS ORDERABL ES Edited Result - Final [facility] [address] [place] [address] * POCT GLUCOSE, INTERFACED (08/05/2021 14:09 EST) Glucose, POC 95 70 - 100 mg/dL 08/05/2021 14:[address] [facility] HN LAB POC COMMENT (GLUCOSE) Test Performed by Nursing Services 08/05/2021 14:[address] [facility] Blood CAPILLARY BLOOD / Unknown 08/05/2021 14:09 EST 08/05/2021 14:11 EST us Sanjuana Gaona NP POINT OF CARE TEST ORDERABLES Final Result [facility] [address] [place] [address] * PHOSPHORUS (08/05/2021 5:31 EST) Phosphorus 3.8 2.5 - 4.5 mg/dL 08/05/2021 6:18 [facility] Blood VENOUS BLOOD / Unknown Venipuncture / Unknown 08/05/2021 5:31 EST 08/05/2021 5:39 EST Yomi Arreola MD CHEMISTRY & BLOOD GAS ORDERABL ES Final Result Performing Organization Address City/[facility]/ZIP Co de Phone Number [facility] [address] [place] [address] * MAGNESIUM (08/05/2021 5:31 EST) Magnesium 2.1 1.7 - 2.8 mg/dL 08/05/2021 6:18 [facility] Blood VENOUS BLOOD / Unknown Venipuncture / Unknown 08/05/2021 5:31 EST 08/05/2021 5:39 EST Yomi Arreola MD CHEMISTRY & BLOOD GAS ORDERABL ES Final Result Performing Organization Address City/[facility] de Phone Number [facility] [address] [place] [address] * (ABNORMAL) COMPREHENSIVE METABOLIC PANEL (CMP) (08/05/2021 5:31 EST) Sodium 138 136 - 145 mmol/L 08/05/2021 6:18 [facility] Potassium 4.2 3.5 - 5.0 mmol/L 08/05/2021 6:18 [facility] Chloride 98 96 - 110 mmol/L 08/05/2021 6:18 [facility] CO2 Total 28 22 - 32 mmol/L 08/05/2021 6:18 [facility] Glucose 109(H) 70 - 100 mg/dL 08/05/2021 6:18 [facility] BUN 51(H) 10 - 26 mg/dL 08/05/2021 6:18 [facility] Creatinine 2.24(H) 0.66 - 1.25 mg/dL 08/05/2021 6:18 [facility] eGFR 29(L) >60 mL/min/1.7 3m2 08/05/2021 6:18 [facility] Total Protein 5.9(L) 6.3 - 8.2 g/dL 08/05/2021 6:18 [facility] Albumin 3.5 3.4 - 4.9 g/dL 08/05/2021 6:18 [facility] Alkaline Phosphatase 65 38 - 126 U/L 08/05/2021 6:18 [facility] AST 18 15 - 46 U/L 08/05/2021 6:18 [facility] ALT 14 <50 U/L 08/05/2021 6:18 [facility] Bilirubin, Total <0.5 <1.4 mg/dL 08/06/19 6:18 [facility] Calcium 9.2 8.5 - 10.5 mg/dL 08/05/2021 6:18 [facility] Albumin/Globulin Ratio 1.5 1.0 - 2.5 08/05/2021 6:18 [facility] Anion Gap 12 5 - 14 08/05/2021 6:18 [facility] Blood VENOUS BLOOD / Unknown Venipuncture / Unknown 08/05/2021 5:31 EST 08/05/2021 5:39 EST us Yomi Arreola MD CHEMISTRY & BLOOD GAS ORDERABL ES Final Result [facility] [address] [place] [id number] * (ABNORMAL) COMPLETE BLOOD COUNT AND DIFFERENTIAL (08/05/2021 5:30 EST) WBC 5.96 4.00 - 10.40 K/cmm 08/05/2021 5:50 [facility] RBC 2.78(L) 4.36 - 5.78 M/cmm 08/05/2021 5:50 [facility] Hemoglobin 8.4(L) 13.8 - 17.3 gm/dL 08/05/2021 5:50 [facility] HCT 26.2(L) 39.5 - 50.2 % 08/05/2021 5:50 [facility] MCV 94 81 - 95 fl 08/05/2021 5:50 [facility] MCH 30.2 27.6 - 33.0 pg 08/05/2021 5:50 [facility] MCHC 32.1(L) 32.8 - 36.4 gm/dL 08/05/2021 5:50 [facility] RDW-CV 13.0 <14.2 % 08/05/2021 5:50 [facility] RDW-SD 45.1 <46.0 fl 08/05/2021 5:50 [facility] PLT 199 141 - 377 K/cmm 08/05/2021 5:50 [facility] MPV 11.4 9.5 - 12.7 fl 08/05/2021 5:50 [facility] % Neutrophils 54.9 % 08/05/2021 5:50 [facility] % Lymphocytes 18.8 % 08/05/2021 5:50 [facility] % Monocytes 11.6 % 08/05/2021 5:50 [facility] % Eosinophils 13.1 % 08/05/2021 5:50 [facility] % Basophils 1.3 % 08/05/2021 5:50 [facility] % Immature Grans 0.3 % 08/06/19 5:50 [facility] Absolute Neutrophils 3.27 2.20 - 8.85 K/cmm 08/05/2021 5:50 [facility] Absolute Lymphocytes 1.12 1.09 - 3.30 K/cmm 08/05/2021 5:50 [facility] Absolute Monocytes 0.69 0.10 - 0.80 K/cmm 08/05/2021 5:50 [facility] Absolute Eosinophils 0.78(H) 0.03 - 0.61 K/cmm 08/05/2021 5:50 [facility] ABS Basophils 0.08 0.01 - 0.11 K/cmm 08/05/2021 5:[address] [facility] Absolute Immature Grans 0.02 0.00 - 0.06 K/cmm 08/05/2021 5:[address] [facility] Type of Differential: Auto 08/05/2021 5:[address] [facility] Blood VENOUS BLOOD / Unknown Venipuncture / Unknown 08/05/2021 5:30 EST 08/05/2021 5:39 EST us Yomi Arreola MD PACKAGES & DNA PROBE ORDERABLE S Final Result Performing Organization Address City/[facility]/ZIP Co de Phone Number [facility] [address] [place] [address] * POCT GLUCOSE, INTERFACED (08/04/2021 5:06 EST) Glucose, POC 96 70 - 100 mg/dL 08/04/2021 5:[address] [facility] HN LAB POC COMMENT (GLUCOSE) Test Performed by Nursing Services 08/04/2021 5:[address] [facility] Blood CAPILLARY BLOOD / Unknown 08/04/2021 5:06 EST 08/04/2021 5:11 EST us Sanjuana Gaona NP POINT OF CARE TEST ORDERABLES Final Result Performing Organization Address City/[facility]/ZIP Co de Phone Number [facility] [address] [place] [address] * PHOSPHORUS (08/04/2021 4:57 EST) Phosphorus 3.9 2.5 - 4.5 mg/dL 08/04/2021 5:[address] [facility] Blood VENOUS BLOOD / Unknown Venipuncture / Unknown 08/04/2021 4:57 EST 08/04/2021 5:13 EST us Yomi Arreola MD CHEMISTRY & BLOOD GAS ORDERABL ES Final Result [facility] [address] [place] [address] * MAGNESIUM (08/04/2021 4:57 EST) Magnesium 2.4 1.7 - 2.8 mg/dL 08/04/2021 5:44 [facility] Blood VENOUS BLOOD / Unknown Venipuncture / Unknown 08/04/2021 4:57 EST 08/04/2021 5:13 EST us Yomi Arreola MD CHEMISTRY & BLOOD GAS ORDERABL ES Final Result [facility] [address] [place] [address] * (ABNORMAL) COMPLETE BLOOD COUNT AND DIFFERENTIAL (08/04/2021 4:57 EST) Pathologist [facility] WBC 6.83 4.00 - 10.40 K/cmm 08/04/2021 5:19 [facility] RBC 3.17(L) 4.36 - 5.78 M/cmm 08/04/2021 5:19 [facility] Hemoglobin 9.6(L) 13.8 - 17.3 gm/dL 08/04/2021 5:19 [facility] HCT 29.4(L) 39.5 - 50.2 % 08/04/2021 5:19 [facility] MCV 93 81 - 95 fl 08/04/2021 5:19 [facility] MCH 30.3 27.6 - 33.0 pg 08/04/2021 5:19 [facility] MCHC 32.7(L) 32.8 - 36.4 gm/dL 08/04/2021 5:19 [facility] RDW-CV 13.1 <14.2 % 08/04/2021 5:19 [facility] RDW-SD 45.1 <46.0 fl 08/04/2021 5:19 [facility] PLT 236 141 - 377 K/cmm 08/04/2021 5:19 [facility] MPV 11.3 9.5 - 12.7 fl 08/04/2021 5:19 [facility] % Neutrophils 60.8 % 08/04/2021 5:19 [facility] % Lymphocytes 17.4 % 08/04/2021 5:19 [facility] % Monocytes 12.0 % 08/04/2021 5:19 [facility] % Eosinophils 8.8 % 08/04/2021 5:19 [facility] % Basophils 0.7 % 08/04/2021 5:19 [facility] % Immature Grans 0.3 % 08/05/19 5:19 [facility] Absolute Neutrophils 4.15 2.20 - 8.85 K/cmm 08/04/2021 5:19 [facility] Absolute Lymphocytes 1.19 1.09 - 3.30 K/cmm 08/04/2021 5:19 [facility] Absolute Monocytes 0.82(H) 0.10 - 0.80 K/cmm 08/04/2021 5:19 [facility] Absolute Eosinophils 0.60 0.03 - 0.61 K/cmm 08/04/2021 5:19 [facility] ABS Basophils 0.05 0.01 - 0.11 K/cmm 08/04/2021 5:19 [facility] Absolute Immature Grans 0.02 0.00 - 0.06 K/cmm 08/04/2021 5:19 [facility] Type of Differential: Auto 08/04/2021 5:19 [facility] Blood VENOUS BLOOD / Unknown Venipuncture / Unknown 08/04/2021 4:57 EST 08/04/2021 5:13 EST us Yomi Arreola MD PACKAGES & DNA PROBE ORDERABLE S Final Result [facility] [address] [place] [address] * (ABNORMAL) COMPREHENSIVE METABOLIC PANEL (CMP) (08/04/2021 4:57 EST) Sodium 139 136 - 145 mmol/L 08/04/2021 5:44 [facility] Potassium 4.6 3.5 - 5.0 mmol/L 08/04/2021 5:44 [facility] Chloride 96 96 - 110 mmol/L 08/04/2021 5:44 [facility] CO2 Total 33(H) 22 - 32 mmol/L 08/04/2021 5:44 [facility] Glucose 95 70 - 100 mg/dL 08/04/2021 5:44 [facility] BUN 53(H) 10 - 26 mg/dL 08/04/2021 5:44 [facility] Creatinine 2.35(H) 0.66 - 1.25 mg/dL 08/04/2021 5:44 [facility] eGFR 28(L) >60 mL/min/1.7 3m2 08/04/2021 5:44 [facility] Total Protein 6.6 6.3 - 8.2 g/dL 08/04/2021 5:44 [facility] Albumin 4.1 3.4 - 4.9 g/dL 08/04/2021 5:44 [facility] Alkaline Phosphatase 78 38 - 126 U/L 08/04/2021 5:44 [facility] AST 19 15 - 46 U/L 08/04/2021 5:44 [facility] ALT 16 <50 U/L 08/04/2021 5:44 [facility] Bilirubin, Total <0.5 <1.4 mg/dL 08/05/19 5:44 [facility] Calcium 9.3 8.5 - 10.5 mg/dL 08/04/2021 5:44 [facility] Albumin/Globulin Ratio 1.6 1.0 - 2.5 08/04/2021 5:44 [facility] Anion Gap 10 5 - 14 08/04/2021 5:44 [facility] Blood VENOUS BLOOD / Unknown Venipuncture / Unknown 08/04/2021 4:57 EST 08/04/2021 5:13 EST Yomi Arreola MD CHEMISTRY & BLOOD GAS ORDERABL ES Final Result [facility] [address] [place] [address] * POCT GLUCOSE, INTERFACED (08/03/2021 5:44 EST) Glucose, POC 92 70 - 100 mg/dL 08/03/2021 5:[address] [facility] HN LAB POC COMMENT (GLUCOSE) Test Performed by Nursing Services 08/03/2021 5:[address] [facility] Blood CAPILLARY BLOOD / Unknown 08/03/2021 5:44 EST 08/03/2021 5:45 EST Sanjuana Gaona NETWORK PROGRAM MANAGER POINT OF CARE TEST ORDERABLES Final Result Performing Organization Address City/[facility]/ZIP Co de Phone Number [facility] [address] [place] [address] * PHOSPHORUS (08/03/2021 5:38 EST) Phosphorus 4.2 2.5 - 4.5 mg/dL 08/03/2021 6:[address] [facility] Blood VENOUS BLOOD / Unknown Venipuncture / Unknown 08/03/2021 5:38 EST 08/03/2021 6:03 EST Yomi Arreola MD CHEMISTRY & BLOOD GAS ORDERABL ES Final Result [facility] [address] [place] [address] * MAGNESIUM (08/03/2021 5:38 EST) Magnesium 2.4 1.7 - 2.8 mg/dL 08/03/2021 6:[address] [facility] Blood VENOUS BLOOD / Unknown Venipuncture / Unknown 08/03/2021 5:38 EST 08/03/2021 6:03 EST us Yomi Arreola MD CHEMISTRY & BLOOD GAS ORDERABL ES Final Result [facility] [address] [place] [address] * (ABNORMAL) COMPLETE BLOOD COUNT AND DIFFERENTIAL (08/03/2021 5:38 EST) WBC 5.81 4.00 - 10.40 K/cmm 08/03/2021 6:07 [facility] RBC 3.16(L) 4.36 - 5.78 M/cmm 08/03/2021 6:07 [facility] Hemoglobin 9.7(L) 13.8 - 17.3 gm/dL 08/03/2021 6:07 [facility] HCT 28.7(L) 39.5 - 50.2 % 08/03/2021 6:07 [facility] MCV 91 81 - 95 fl 08/03/2021 6:07 [facility] MCH 30.7 27.6 - 33.0 pg 08/03/2021 6:07 [facility] MCHC 33.8 32.8 - 36.4 gm/dL 08/03/2021 6:07 [facility] RDW-CV 13.1 <14.2 % 08/03/2021 6:07 [facility] RDW-SD 43.4 <46.0 fl 08/03/2021 6:07 [facility] PLT 223 141 - 377 K/cmm 08/03/2021 6:07 [facility] MPV 11.6 9.5 - 12.7 fl 08/03/2021 6:07 [facility] % Neutrophils 56.0 % 08/03/2021 6:07 [facility] % Lymphocytes 18.6 % 08/03/2021 6:07 [facility] % Monocytes 14.1 % 08/03/2021 6:07 [facility] % Eosinophils 10.0 % 08/03/2021 6:07 [facility] % Basophils 1.0 % 08/03/2021 6:07 [facility] % Immature Grans 0.3 % 08/04/19 6:07 [facility] Absolute Neutrophils 3.25 2.20 - 8.85 K/cmm 08/03/2021 6:07 [facility] Absolute Lymphocytes 1.08(L) 1.09 - 3.30 K/cmm 08/03/2021 6:07 [facility] Absolute Monocytes 0.82(H) 0.10 - 0.80 K/cmm 08/03/2021 6:07 [facility] Absolute Eosinophils 0.58 0.03 - 0.61 K/cmm 08/03/2021 6:07 [facility] ABS Basophils 0.06 0.01 - 0.11 K/cmm 08/03/2021 6:07 [facility] Absolute Immature Grans 0.02 0.00 - 0.06 K/cmm 08/03/2021 6:07 [facility] Type of Differential: Auto 08/03/2021 6:07 [facility] Blood VENOUS BLOOD / Unknown Venipuncture / Unknown 08/03/2021 5:38 EST 08/03/2021 6:00 EST us Yomi Arreola MD PACKAGES & DNA PROBE ORDERABLE S Final Result [facility] [address] [place] [address] * (ABNORMAL) COMPREHENSIVE METABOLIC PANEL (CMP) (08/03/2021 5:38 EST) Sodium 137 136 - 145 mmol/L 08/03/2021 6:47 [facility] Potassium 4.8 3.5 - 5.0 mmol/L 08/03/2021 6:47 [facility] Chloride 98 96 - 110 mmol/L 08/03/2021 6:47 [facility] CO2 Total 27 22 - 32 mmol/L 08/03/2021 6:47 [facility] Glucose 99 70 - 100 mg/dL 08/03/2021 6:47 [facility] BUN 49(H) 10 - 26 mg/dL 08/03/2021 6:47 [facility] Creatinine 2.43(H) 0.66 - 1.25 mg/dL 08/03/2021 6:47 [facility] eGFR 27(L) >60 mL/min/1.7 3m2 08/03/2021 6:47 [facility] Total Protein 6.5 6.3 - 8.2 g/dL 08/03/2021 6:47 [facility] Albumin 4.0 3.4 - 4.9 g/dL 08/03/2021 6:47 [facility] Alkaline Phosphatase 75 38 - 126 U/L 08/03/2021 6:47 [facility] AST 18 15 - 46 U/L 08/03/2021 6:47 [facility] ALT 18 <50 U/L 08/03/2021 6:47 [facility] Bilirubin, Total <0.5 <1.4 mg/dL 08/04/19 6:47 [facility] Calcium 9.1 8.5 - 10.5 mg/dL 08/03/2021 6:47 [facility] Albumin/Globulin Ratio 1.6 1.0 - 2.5 08/03/2021 6:47 [facility] Anion Gap 12 5 - 14 08/03/2021 6:47 [facility] Blood VENOUS BLOOD / Unknown Venipuncture / Unknown 08/03/2021 5:38 EST 08/03/2021 6:03 EST us Yomi Arreola MD CHEMISTRY & BLOOD GAS ORDERABL ES Final Result [facility] [address] [place] [address] * (ABNORMAL) POCT GLUCOSE, INTERFACED (08/02/2021 4:46 EST) Glucose, POC 115(H) 70 - 100 mg/dL 08/02/2021 4:[address] [facility] HN LAB POC COMMENT (GLUCOSE) Test Performed by Nursing Services 08/02/2021 4:[address] [facility] Blood CAPILLARY BLOOD / Unknown 08/02/2021 4:46 EST 08/02/2021 4:46 EST Sanjuana Gaona NP POINT OF CARE TEST ORDERABLES Final Result Performing Organization Address City/[facility]/ZIP Co de Phone Number [facility] [address] [place] [address] * PHOSPHORUS (08/02/2021 4:39 EST) [facility] Phosphorus 4.2 2.5 - 4.5 mg/dL 08/02/2021 5:[address] [facility] Blood VENOUS BLOOD / Unknown Venipuncture / Unknown 08/02/2021 4:39 EST 08/02/2021 4:45 EST Yomi Arreola MD CHEMISTRY & BLOOD GAS ORDERABL ES Final Result Performing Organization Address [facility] de Phone Number [facility] [address] [place] [address] * MAGNESIUM (08/02/2021 4:39 EST) [facility] Magnesium 2.2 1.7 - 2.8 mg/dL 08/02/2021 5:[address] [facility] Blood VENOUS BLOOD / Unknown Venipuncture / Unknown 08/02/2021 4:39 EST 08/02/2021 4:45 EST Yomi Arreola MD CHEMISTRY & BLOOD GAS ORDERABL ES Final Result Performing Organization Address [facility] Co de Phone Number [facility] [address] [place] [address] * (ABNORMAL) COMPLETE BLOOD COUNT AND DIFFERENTIAL (08/02/2021 4:39 EST) [facility] WBC 4.40 4.00 - 10.40 K/cmm 08/02/2021 4:53 [facility] RBC 2.98(L) 4.36 - 5.78 M/cmm 08/02/2021 4:53 [facility] Hemoglobin 9.3(L) 13.8 - 17.3 gm/dL 08/02/2021 4:53 [facility] HCT 27.1(L) 39.5 - 50.2 % 08/02/2021 4:53 [facility] MCV 91 81 - 95 fl 08/02/2021 4:53 [facility] MCH 31.2 27.6 - 33.0 pg 08/02/2021 4:53 [facility] MCHC 34.3 32.8 - 36.4 gm/dL 08/02/2021 4:53 [facility] RDW-CV 13.2 <14.2 % 08/02/2021 4:53 [facility] RDW-SD 43.6 <46.0 fl 08/02/2021 4:53 [facility] PLT 203 141 - 377 K/cmm 08/02/2021 4:53 [facility] MPV 11.3 9.5 - 12.7 fl 08/02/2021 4:53 [facility] % Neutrophils 51.6 % 08/02/2021 4:53 [facility] % Lymphocytes 20.0 % 08/02/2021 4:53 [facility] % Monocytes 12.5 % 08/02/2021 4:53 [facility] % Eosinophils 14.3 % 08/02/2021 4:53 [facility] % Basophils 0.9 % 08/02/2021 4:53 [facility] % Immature Grans 0.7 % 08/03/19 4:53 [facility] Absolute Neutrophils 2.27 2.20 - 8.85 K/cmm 08/02/2021 4:53 [facility] Absolute Lymphocytes 0.88(L) 1.09 - 3.30 K/cmm 08/02/2021 4:53 [facility] Absolute Monocytes 0.55 0.10 - 0.80 K/cmm 08/02/2021 4:53 [facility] Absolute Eosinophils 0.63(H) 0.03 - 0.61 K/cmm 08/02/2021 4:53 [facility] ABS Basophils 0.04 0.01 - 0.11 K/cmm 08/02/2021 4:53 [facility] Absolute Immature Grans 0.03 0.00 - 0.06 K/cmm 08/02/2021 4:53 [facility] Type of Differential: Auto 08/02/2021 4:53 [facility] Blood VENOUS BLOOD / Unknown Venipuncture / Unknown 08/02/2021 4:39 EST 08/02/2021 4:45 EST us Yomi Arreola MD PACKAGES & DNA PROBE ORDERABLE S Final Result [facility] [address] [place] [address] * (ABNORMAL) COMPREHENSIVE METABOLIC PANEL (CMP) (08/02/2021 4:39 EST) Sodium 134(L) 136 - 145 mmol/L 08/02/2021 5:13 [facility] Potassium 4.1 3.5 - 5.0 mmol/L 08/02/2021 5:13 [facility] Chloride 100 96 - 110 mmol/L 08/02/2021 5:13 [facility] CO2 Total 23 22 - 32 mmol/L 08/02/2021 5:13 [facility] Glucose 115(H) 70 - 100 mg/dL 08/02/2021 5:13 [facility] BUN 43(H) 10 - 26 mg/dL 08/02/2021 5:13 [facility] Creatinine 2.10(H) 0.66 - 1.25 mg/dL 08/02/2021 5:13 [facility] eGFR 32(L) >60 mL/min/1.7 3m2 08/02/2021 5:13 [facility] Total Protein 6.1(L) 6.3 - 8.2 g/dL 08/02/2021 5:13 [facility] Albumin 3.5 3.4 - 4.9 g/dL 08/02/2021 5:13 [facility] Alkaline Phosphatase 75 38 - 126 U/L 08/02/2021 5:13 [facility] AST 21 15 - 46 U/L 08/02/2021 5:13 [facility] ALT 20 <50 U/L 08/02/2021 5:13 [facility] Bilirubin, Total <0.5 <1.4 mg/dL 08/03/19 5:13 [facility] Calcium 8.9 8.5 - 10.5 mg/dL 08/02/2021 5:13 [facility] Albumin/Globulin Ratio 1.3 1.0 - 2.5 08/02/2021 5:13 [facility] Anion Gap 11 5 - 14 08/02/2021 5:13 [facility] Blood VENOUS BLOOD / Unknown Venipuncture / Unknown 08/02/2021 4:39 EST 08/02/2021 4:45 EST us Yomi Arreola MD CHEMISTRY & BLOOD GAS ORDERABL ES Final Result Performing Organization Address City/State/[facility] Co de Phone Number [facility] [address] [place] [address] * POCT GLUCOSE, INTERFACED (08/01/2021 22:07 EST) Glucose, POC 87 70 - 100 mg/dL 08/01/2021 22:08 [facility] HN LAB POC COMMENT (GLUCOSE) Test Performed by Nursing Services 08/01/2021 22:08 [facility] Blood CAPILLARY BLOOD / Unknown 08/01/2021 22:07 EST 08/01/2021 22:08 EST us Sanjuana Gaona NETWORK PROGRAM MANAGER POINT OF CARE TEST ORDERABLES Final Result Performing Organization Address City/[facility]/ZIP Co de Phone Number [facility] [address] [place] [address] * POCT GLUCOSE, INTERFACED (08/01/2021 14:46 EST) Glucose, POC 83 70 - 100 mg/dL 08/01/2021 14:[address] [facility] HN LAB POC COMMENT (GLUCOSE) Test Performed by Nursing Services 08/01/2021 14:[address] [facility] Blood CAPILLARY BLOOD / Unknown 08/01/2021 14:46 EST 08/01/2021 14:47 EST Sanjuana Gaona NETWORK PROGRAM MANAGER POINT OF CARE TEST ORDERABLES Final Result Performing Organization Address [facility] Co de Phone Number [facility] [address] [place] [address] * [place] UGI WO AIR W CURING OVEN TENDER (08/01/2021 10:35 EST) Anatomical Region Laterality Modality [...] 12:14 EST [place] UGI WO AIR W CURING OVEN TENDER ??08/01/2021 9:35 AM Signs and Symptoms/Comments: ?? [...] to tolerate oral intake of contrast. Findings: Senior Scheduler KUB demonstrates a large air and contrast-filled [...] - 08/01/2021 [place] UGI WO AIR W CURING OVEN TENDER 08/01/2021 9:35 AM Signs and Symptoms/Comments: History [...] able to tolerate oral intake ofcontrast. Findings: Senior Scheduler KUB demonstrates a large air and contrast-filled [...] the above interpretation andagree with the findings. us Ashlie Greene MD IMG FLUOROSCOPY ORDERABLES Fi nal Result * XR ABDOMEN 1 VIEW (08/01/2021 8:34 [...] the above interpretation andagree with the findings. us Ashlie Greene MD IMG DIAGNOSTIC IMAGING ORDERA BLES Final Result * (ABNORMAL) COMPLETE BLOOD COUNT AND DIFFERENTIAL (08/01/2021 5:26 EST) WBC 6.37 4.00 - 10.40 K/cmm 08/01/2021 5:37 [facility] RBC 2.70(L) 4.36 - 5.78 M/cmm 08/01/2021 5:37 [facility] Hemoglobin 8.1(L) 13.8 - 17.3 gm/dL 08/01/2021 5:37 [facility] HCT 24.9(L) 39.5 - 50.2 % 08/01/2021 5:37 [facility] MCV 92 81 - 95 fl 08/01/2021 5:37 [facility] MCH 30.0 27.6 - 33.0 pg 08/01/2021 5:37 [facility] MCHC 32.5(L) 32.8 - 36.4 gm/dL 08/01/2021 5:37 [facility] RDW-CV 13.2 <14.2 % 08/01/2021 5:37 [facility] RDW-SD 44.2 <46.0 fl 08/01/2021 5:37 [facility] PLT 167 141 - 377 K/cmm 08/01/2021 5:37 [facility] MPV 11.5 9.5 - 12.7 fl 08/01/2021 5:37 [facility] % Neutrophils 62.4 % 08/01/2021 5:37 [facility] % Lymphocytes 14.4 % 08/01/2021 5:37 [facility] % Monocytes 9.7 % 08/01/2021 5:37 [facility] % Eosinophils 12.1 % 08/01/2021 5:37 [facility] % Basophils 0.9 % 08/01/2021 5:37 [facility] % Immature Grans 0.5 % 08/02/19 5:37 [facility] Absolute Neutrophils 3.97 2.20 - 8.85 K/cmm 08/01/2021 5:37 [facility] Absolute Lymphocytes 0.92(L) 1.09 - 3.30 K/cmm 08/01/2021 5:37 [facility] Absolute Monocytes 0.62 0.10 - 0.80 K/cmm 08/01/2021 5:37 [facility] Absolute Eosinophils 0.77(H) 0.03 - 0.61 K/cmm 08/01/2021 5:37 [facility] ABS Basophils 0.06 0.01 - 0.11 K/cmm 08/01/2021 5:37 [facility] Absolute Immature Grans 0.03 0.00 - 0.06 K/cmm 08/01/2021 5:37 [facility] Type of Differential: Auto 08/01/2021 5:[address] [facility] Blood BLOOD SAMPLE TAKEN FROM CENTRAL LINE / Unknown Venipuncture / Unknown 08/01/2021 5:26 EST 08/01/2021 5:30 EST Yomi Arreola MD PACKAGES & DNA PROBE ORDERABLE S Final Result Performing Organization Address [facility]/ZIP Co de Phone Number [facility] [address] [place] [address] * PHOSPHORUS (08/01/2021 5:25 EST) Phosphorus 3.8 2.5 - 4.5 mg/dL 08/01/2021 6:[address] [facility] Blood VENOUS BLOOD / Unknown Venipuncture / Unknown 08/01/2021 5:25 EST 08/01/2021 5:30 EST Yomi Arreola MD CHEMISTRY & BLOOD GAS ORDERABL ES Final Result Performing Organization Address [facility] Co de Phone Number [facility] [address] [place] [address] * MAGNESIUM (08/01/2021 5:25 EST) Pathologist [facility] Magnesium 2.3 1.7 - 2.8 mg/dL 08/01/2021 6:[address] [facility] Blood VENOUS BLOOD / Unknown Venipuncture / Unknown 08/01/2021 5:25 EST 08/01/2021 5:30 EST Yomi Arreola MD CHEMISTRY & BLOOD GAS ORDERABL ES Final Result Performing Organization Address [facility] de Phone Number [facility] [address] [place] [address] * (ABNORMAL) COMPREHENSIVE METABOLIC PANEL (CMP) (08/01/2021 5:25 EST) Sodium 131(L) 136 - 145 mmol/L 08/01/2021 6:[address] [facility] Potassium 4.2 3.5 - 5.0 mmol/L 08/01/2021 6:07 [facility] Chloride 100 96 - 110 mmol/L 08/01/2021 6:07 [facility] CO2 Total 18(L) 22 - 32 mmol/L 08/01/2021 6:07 [facility] Glucose 79 70 - 100 mg/dL 08/01/2021 6:07 [facility] BUN 44(H) 10 - 26 mg/dL 08/01/2021 6:07 [facility] Creatinine 1.89(H) 0.66 - 1.25 mg/dL 08/01/2021 6:07 [facility] eGFR 36(L) >60 mL/min/1.7 3m2 08/01/2021 6:07 [facility] Total Protein 5.3(L) 6.3 - 8.2 g/dL 08/01/2021 6:07 [facility] Albumin 3.0(L) 3.4 - 4.9 g/dL 08/01/2021 6:07 [facility] Alkaline Phosphatase 69 38 - 126 U/L 08/01/2021 6:07 [facility] AST 20 15 - 46 U/L 08/01/2021 6:07 [facility] ALT 19 <50 U/L 08/01/2021 6:07 [facility] Bilirubin, Total <0.5 <1.4 mg/dL 08/02/19 22 6:07 [facility] Calcium 7.4(L) 8.5 - 10.5 mg/dL 08/01/2021 6:07 [facility] Albumin/Globulin Ratio 1.3 1.0 - 2.5 08/01/2021 6:07 [facility] Anion Gap 13 5 - 14 08/01/2021 6:07 [facility] Blood VENOUS BLOOD / Unknown Venipuncture / Unknown 08/01/2021 5:25 EST 08/01/2021 5:30 EST us Yomi Arreola MD CHEMISTRY & BLOOD GAS ORDERABL ES Final Result Performing Organization Address [facility] Co de Phone Number [facility] [address] [place] [address] * COVID-19 TEST [facility] PCR (07/31/2021 21:37 EST) Swab BOTH ANTERIOR NARES / Unknown Swab / Unknown 07/31/2021 21:37 EST 07/31/2021 21:43 EST Yomi Arreola MD MICROBIOLOGY - GENERAL ORDERAB LES Final Result Performing Organization Address [facility] Co de Phone Number [facility] [address] [place] [address] * COVID-19 TESTING (07/31/2021 21:37 EST) COVID-19 rt-PCR Result Negative Negative 08/01/2021 2:[address] [facility] Comment: This test [...] history, and epidemiological information. Performed on the [employer] Fusion instrument Performing Lab [place] [facility] 08/01/2021 2:[address] [facility] Swab BOTH ANTERIOR NARES / Unknown Swab / Unknown 07/31/2021 21:37 EST 07/31/2021 21:43 EST Yomi Arreola MD MICROBIOLOGY - GENERAL ORDERAB LES Final Result [facility] [address] [place] [address] * PHOSPHORUS (07/31/2021 21:36 EST) Pathologist [facility] Phosphorus 4.0 2.5 - 4.5 mg/dL 07/31/2021 21:[address] [facility] Blood VENOUS BLOOD / Unknown Venipuncture / Unknown 07/31/2021 21:36 EST 07/31/2021 21:43 EST Yomi Arreola MD CHEMISTRY & BLOOD GAS ORDERABL ES Final Result Performing Organization Address [facility]/ZIP Co de Phone Number [facility] [address] [place] [address] * MAGNESIUM (07/31/2021 21:36 EST) [facility] Magnesium 2.1 1.7 - 2.8 mg/dL 07/31/2021 21:59 [facility] Blood VENOUS BLOOD / Unknown Venipuncture / Unknown 07/31/2021 21:36 EST 07/31/2021 21:43 EST Yomi Arreola MD CHEMISTRY & BLOOD GAS ORDERABL ES Final Result Performing Organization Address City/[facility]/ZIP Co de Phone Number [facility] [address] [place] [address] * (ABNORMAL) COMPLETE BLOOD COUNT AND DIFFERENTIAL (07/31/2021 21:36 EST) [facility] WBC 8.00 4.00 - 10.40 K/cmm 07/31/2021 21:55 [facility] RBC 3.23(L) 4.36 - 5.78 M/cmm 07/31/2021 21:55 [facility] Hemoglobin 9.9(L) 13.8 - 17.3 gm/dL 07/31/2021 21:55 [facility] HCT 29.1(L) 39.5 - 50.2 % 07/31/2021 21:55 [facility] MCV 90 81 - 95 fl 07/31/2021 21:55 [facility] MCH 30.7 27.6 - 33.0 pg 07/31/2021 21:55 [facility] MCHC 34.0 32.8 - 36.4 gm/dL 07/31/2021 21:55 [facility] RDW-CV 13.1 <14.2 % 07/31/2021 21:55 [facility] RDW-SD 43.8 <46.0 fl 07/31/2021 21:55 [facility] PLT 186 141 - 377 K/cmm 07/31/2021 21:55 [facility] MPV 11.6 9.5 - 12.7 fl 07/31/2021 21:55 [facility] % Neutrophils 75.2 % 07/31/2021 21:55 [facility] % Lymphocytes 8.9 % 07/31/2021 21:55 [facility] % Monocytes 6.6 % 07/31/2021 21:55 [facility] % Eosinophils 7.9 % 07/31/2021 21:55 [facility] % Basophils 0.8 % 07/31/2021 21:55 [facility] % Immature Grans 0.6 % 08/01/19 21:55 [facility] Absolute Neutrophils 6.02 2.20 - 8.85 K/cmm 07/31/2021 21:55 [facility] Absolute Lymphocytes 0.71(L) 1.09 - 3.30 K/cmm 07/31/2021 21:55 [facility] Absolute Monocytes 0.53 0.10 - 0.80 K/cmm 07/31/2021 21:55 [facility] Absolute Eosinophils 0.63(H) 0.03 - 0.61 K/cmm 07/31/2021 21:55 [facility] ABS Basophils 0.06 0.01 - 0.11 K/cmm 07/31/2021 21:55 [facility] Absolute Immature Grans 0.05 0.00 - 0.06 K/cmm 07/31/2021 21:55 [facility] Type of Differential: Auto 07/31/2021 21:55 [facility] Blood BLOOD SAMPLE TAKEN FROM CENTRAL LINE / Unknown Venipuncture / Unknown 07/31/2021 21:36 EST 07/31/2021 21:43 EST us Yomi Arreola MD PACKAGES & DNA PROBE ORDERABLE S Final Result [facility] [address] [place] [address] * (ABNORMAL) COMPREHENSIVE METABOLIC PANEL (CMP) (07/31/2021 21:36 EST) Sodium 134(L) 136 - 145 mmol/L 07/31/2021 21:59 [facility] Potassium 4.4 3.5 - 5.0 mmol/L 07/31/2021 21:59 [facility] Chloride 100 96 - 110 mmol/L 07/31/2021 21:59 [facility] CO2 Total 21(L) 22 - 32 mmol/L 07/31/2021 21:59 [facility] Glucose 96 70 - 100 mg/dL 07/31/2021 21:59 [facility] BUN 53(H) 10 - 26 mg/dL 07/31/2021 21:59 [facility] Creatinine 2.22(H) 0.66 - 1.25 mg/dL 07/31/2021 21:59 [facility] eGFR 30(L) >60 mL/min/1.7 3m2 07/31/2021 21:59 [facility] Total Protein 6.7 6.3 - 8.2 g/dL 07/31/2021 21:59 [facility] Albumin 4.1 3.4 - 4.9 g/dL 07/31/2021 21:59 [facility] Alkaline Phosphatase 89 38 - 126 U/L 07/31/2021 21:59 [facility] AST 25 15 - 46 U/L 07/31/2021 21:59 [facility] ALT 27 <50 U/L 07/31/2021 21:59 [facility] Bilirubin, Total <0.5 <1.4 mg/dL 08/01/19 21:59 [facility] Calcium 9.0 8.5 - 10.5 mg/dL 07/31/2021 21:59 [facility] Albumin/Globulin Ratio 1.6 1.0 - 2.5 07/31/2021 21:59 [facility] Anion Gap 13 5 - 14 07/31/2021 21:59 [facility] Blood VENOUS BLOOD / Unknown Venipuncture / Unknown 07/31/2021 21:36 EST 07/31/2021 21:43 EST us Yomi Arreola MD CHEMISTRY & BLOOD GAS ORDERABL ES Final Result Performing Organization Address City/State/[facility] Co de Phone Number [facility] [address] [place] [address] * XR CHEST PORTABLE 1 VIEW (07/31/2021 [...] the left upper quadrant, and outside the [id number]. Soft tissues, bones and extrathoracic findings: There [...] into the left upper quadrant, and outsidethe [id number]-[id number]. Soft tissues, bones and extrathoracic findings: There is a large hiatalhernia with residual ingested contrast material in the thoracic portion ofthe stomach. Cardiac and mediastinal contours: Normal. Lungs: There is atelectasis at the left lower lung related to the presenceof large hiatal hernia. Pleura: No visible pleural abnormalities. IMPRESSION 1. PICC line tip ends at the cavoatrial junction. us Yomi Arreola MD IMG DIAGNOSTIC IMAGING ORDERAB LES Final Result documented in this encounter Visit [...] X1, 1 dose, On Ladan 08/03/21 at 0130, Is the patient NPO? If [...] at 63 mL/hr, ADULT NUTRITION, Starting on Tu08/01/21 at 2100, Until Sat08/02/21 at 2232, Release [...] on 08/04/21 at 2100, Until 08/05/21 at 2031, Release Rate Documented 08/05/2021 7:00 EST 75 [...] CYCLE, Starting on 08/07/21 at 2100, Until 08/08/21 at 1348 Rate Change 08/08/2021 12:58 EDT 60 mL/hr Rate Documented 08/08/2021 7:55 EDT Rate Change 08/07/2021 22:49 EDT 120 mL/hr Adult Parenteral Nutrition central line, ADULT CYCLE, Starting on 08/08/21 at 2100, Until 08/09/21 at 0903 Rate Change 08/09/2021 8:30 EDT 80 mL/hr Rate Documented 08/09/2021 7:27 EDT Rate Change 08/08/2021 22:12 EDT 164 mL/hr calcium carbonate (TUMS) 200 mg calcium (500 mg) per chewable tablet tablet,chewable 1 Tablet 1 Tablet, oral, NOW X1, 1 dose, On Ladan 08/03/21 at 1530, Routine Given 08/03/2021 15:31 EST 1 Tablet calcium carbonate (TUMS) 200 mg calcium (500 mg) per chewable tablet tablet,chewable 2 Tablet 2 Tablet, oral, 4 TIMES DAILY PRN, Starting on 08/06/21 at 1142, Until Sat08/11/21 at 1447, Heartburn, [...] over 24 Hours, ADULT NUTRITION, Starting on Ladan 08/03/21 at 2100, Until 08/05/21 at 0004, Routine, [...] Administer over 16 Hours, CONTINUOUS, Starting on 08/06/21 at 2100, Until 08/07/21 at 1247, Routine Rate Documented 08/07/2021 7:08 EDT 15.63 mL/hr New Bag 08/06/2021 20:48 EDT 250 mL 15.63 mL/hr fat emulsion 20 % infusion 250 mL 250 mL, intravenous, Administer over 16 Hours, CONTINUOUS, Starting on 08/07/21 at 2100, Until Sat08/08/21 at 1348, Routine [...] PRN, Starting on Sat08/09/21 at 0749, Until Ladan 08/10/21 at 1336, Pain, Routine Given 08/10/2021 13:19 [...] may reflect changes made after this encounter. allopurinoL (ZYLOPRIM) 100 mg tablet Take 100 [...] Nima Castano RN)1536 (Given - Provider: Nima Castano RN)2351 (Given - Provider: John Rocha, LOYD) [...] on Sat08/09/21 at 0900, Until Discontinued, Routine 09 (Given - Provider: Donna Carpenter RN)2017 (Given - Provider: John Rocha RN) 0953 (Given - Provider: Nima Castano, LOYD)2023 (Given - Provider: John Rocha, LOYD) 0816 (Given - Provider: Nima Castano RN) pantoprazole (PROTONIX) tablet 40 mg 40 mg, oral, DAILY BEFORE BREAKFAST, First dose on Sat08/09/21 at 0815, Until Discontinued, Routine 09 (Given - Provider: Donna Carpenter RN) 0603 (Given - Provider: John Rocha RN) 0601 (Given - Provider: John Rocha, LOYD) [...] 0750, Routine 0727 (Rate Documented - Provider: Dnona Carpenter RN)0908 (Completed - Provider: Donna Carpenter RN) PRN Medication Order 08/09/2021 08/10/2021 08/11/2021 calcium carbonate (TUMS) 200 mg calcium (500 mg) per chewable tablet tablet,chewable 2 Tablet 2 Tablet, oral, 4 TIMES DAILY PRN, Starting on Sat08/06/21 at 1142, Until Sat08/11/21 at 1447, Heartburn, Routine 0804 (Given - Provider: Donna Carpenter RN)1611 (Given - Provider: Donna Carpenter RN)2358 (Given - Provider: John Rocha RN) 0738 (Given - Provider: Nima Castano, LOYD)1536 (Given - Provider: Nima Castano, RN)2026 (Given - Provider: John Rocha, LOYD)2356 (Given - Provider: John Rocha, LOYD) 0605 (Given - Provider: John Rocha, LOYD)0816 (Given - Provider: Nima Castano, LOYD) HYDROmorphone (PF) (DILAUDID) 0.5 mg/0.5 mL syringe 0.5 mg (CANCELED) 0.5 mg, intravenous, EVERY 4 HOURS PRN, Starting on Sat08/02/21 at 1832, Until Sat08/09/21 at 0750, Moderate Pain 4-6, Routine 0256 (Given - Provider: John Rocha RN)0701 (Given - Provider: John Rocha RN) ondansetron (PF) (ZOFRAN) injection 4 mg 4 [...] Carpenter, RN)2018 (Given - Provider: John Rocha, RN)2358 (Given - Provider: John Rocha RN) 0259 (Given - Provider: John Rocha RN)0602 (Given - Provider: John Rocha, RN)1319 (Given - Provider: Nima Castano, RN) traMADol (ULTRAM) tablet 50 mg 50 mg, oral, EVERY 6 HOURS PRN, Starting on Ladan 08/10/21 at 1335, Until 08/11/21 at 1447, Pain, Moderate Pain 4-6, Routine 1735 (Given - Provider: Nima Castano, RN)2350 (Given - Provider: John Rocha, LOYD) 0601 (Given - Provider: John Rocha, LOYD)1204 [...] 08/11/2021 documented in this encounter Care Teams Shuttle Fixer Relationship Specialty Start Date End Date Jovani Wharton DO PCP - General 10/11/16 10/17/21 documented as of this encounter
--- OUTSIDE RECORDS SUMMARY | 2024-06-08 12:44 | XMS_ITS | Encounter Summary ---
Author Organization [facility] Address [address] [place] [address] Care Team Providers Care Salesperson Parts Name Role Phone Jovani Wharton DO Primary Care Provider [phone]- [phone] Reason for Visit * (Routine/Next Available) - Receiving Office to Obtain Authorization Specialty Diagnoses / Procedures Referred By Devaughn bobo Referred To Contact Procedures XR OUTSIDE IMAGES BODY Unknown, Provider, MD Referral ID Status Reason Start Date Expiration Date Visits Requested Visits Authorized [id number] Receiving Office to Obtain Authorization 07/27/2021 1 1 Encounter Details Date Type Department Care Team (Latest Contact Info) Description 07/27/2021 12:19 EST - 07/27/2021 23:59 EST Hospital Encounter [facility] Secondary Reads [place] Discharge Disposition: Home [...] 12:19 EST This is a non-reportable exam. us Provider Unknown IMNerissa OTHER IMAGING ORDERABLES Final Result documented in this encounter Visit Diagnoses Not on filedocumented in this encounter Care Teams Salesperson Parts Relationship Specialty Start Date End Date Jovani Wharton DO PCP - General 10/11/16 10/17/21 documented as of this encounter
--- OUTSIDE RECORDS SUMMARY | 2024-06-08 12:44 | XMS_ITS | Encounter Summary ---
Author Organization [facility] Address [address] [place] [address] Care Team Providers Care Balance Sheet Analyst Name Role Phone Jovani Wharton DO Primary Care Provider [phone] Jorge Chauhan MD Primary Care Provider Luis Lauren MD Primary Care Provider [phone] Slade Tran MD Primary Care Provider [phone] Encounter Details Date Type Department Care Team (Late st Contact Info) Description 11/29/2019 Lab Requisition [facility] Pathology & Laboratory Medicine - [facility] [address] [place], [place] [id number] Outr Resulting Lab, Provider Social History Tobacco [...] Not Detected Not Detected 12/01/2019 17:03 EDT [facility] Comment: This test has not [...] or revoked sooner. ??Factsheets for healthcare providers: ??https://www.fda.gov/media/806478/download Factsheets for patients: https://www.fda.gov/media/738540/download Negative results do not preclude infection with SARS-CoV-2 virus, and should not be the sole basis of a patient management decision. Swab ENTIRE NASOPHARYNX / Unknown 11/29/2019 13:07 EDT 11/30/2019 15:49 EDT us Provider Outr Resulting Lab MICROBIOLOGY - GENER AL ORDERABLES Final Result [facility] [address] [place] [address] * COVID-19 TESTING (11/29/2019 13:07 EDT) Pathologist [facility] COVID-19 rt-PCR Result Not Detected Not Detected 12/01/2019 17:13 EDT [facility] Comment: This test has not [...] or revoked sooner. ??Factsheets for healthcare providers: ??https://www.fda.gov/media/277469/download Factsheets for patients: https://www.fda.gov/media/910382/download Negative results do not preclude infection with SARS-CoV-2 virus, and should not be the sole basis of a patient management decision. Performing Lab [facility] 12/01/2019 17:13 EDT [facility] Swab 11/29/2019 13:0 7 EDT 11/30/2019 15:49 EDT us Provider Outr Resulting Lab MICROBIOLOGY - GENER AL ORDERABLES Final Result Performing Organization Address City/State/[facility] Co de Phone Number [facility] [address] [place], [place] [id number] [place] [address] LABORATORY [address] [place] [address] documented in this encounter Visit Diagnoses Not on filedocumented in this encounter Additional Health Concerns Infection Onset Date Last Indicated Resolved Time R/O COVID-19 11/29/2019 11/29/2019 12/04/2019 22:1 7 EDT documented as of this encounter Care Teams Balance Sheet Analyst Relationship Specialty Start Date End Date Jovani Wharton DO PCP - General 10/11/16 10/17/21 Jorge Chauhan MD [address] [place], [place] [address] PCP - General Family Medicine - Primary Care 10/18/21 11/22/21 Luis Lauren MD [address] [place], [place] [id number] PCP - General Family Medicine - Primary Care 11/23/21 11/11/22 Slade Tran MD [facility] [place] [address] PCP - General 11/12/22 documented as of this encounter
--- OUTSIDE RECORDS SUMMARY | 2024-06-08 12:44 | XMS_ITS | Encounter Summary ---
Author Organization [facility] Address [address] [place] [address] Care Team Providers Care Senior Quantity Surveyor Name Role Phone Jovani Wharton DO Primary Care Provider [phone]- [phone] Reason for Visit * (Routine/Next Available) - Receiving Office to Obtain Authorization Specialty Diagnoses / Procedures Referred By Devaughn bobo Referred To Contact Procedures XR OUTSIDE IMAGES BODY Unknown, Provider, MD Referral ID Status Reason Start Date Expiration Date Visits Requested Visits Authorized [id number] Receiving Office to Obtain Authorization 07/31/2021 1 1 Encounter Details Date Type Department Care Team (Latest Contact Info) Description 07/28/2021 - 07/28/2021 23:59 EST Hospital Encounter [facility] Secondary Reads [...] 15:23 EST This is a non-reportable exam. us Provider Unknown MD HAHN OTHER IMAGING ORDERABLES Final Result documented in this encounter Visit Diagnoses Not on filedocumented in this encounter Care Teams Senior Quantity Surveyor Relationship Specialty Start Date End Date Jovani Wharton DO PCP - General 10/11/16 10/17/21 documented as of this encounter
--- OUTSIDE RECORDS SUMMARY | 2024-06-08 12:44 | XMS_ITS | Encounter Summary ---
Author Organization [facility] Address [address] [place] [address] Care Team Providers Care Honing Machine Try Out Setter Name Role Phone Unavailable Primary Care Provider Unavailedison e Encounter Details Date Type Department Care Team (Late st Contact Info) Description 09/24/2007 Results Only [facility] - [facility] [address] [place] [address] Jovani Wharton, DO [address] [place], [place] [address] Social History Tobacco Use Types Packs/Day Years [...] ? MATHEW LINK ? Accession #: ? [id number] ? : ? 1955 (Age: 52) ??M [...] concomitant vacuolar change and keratinocyte necrosis. ??(Dr. Walton)/[facility] Document reviewed and electronically signed by: DIMITRI [...] is submitted intact in one cassette. ??(Lisset Gorman)/[facility] End of Report [facility] 09/24/2007 09/24/2007 17: 40 EDT us Jovani Wharton DO PATHOLOGY ORDERABLES Final Result [facility] [address] [place] [address] documented in this encounter Visit Diagnoses Not on filedocumented in this encounter
--- OUTSIDE RECORDS SUMMARY | 2024-06-08 12:44 | XMS_ITS | Encounter Summary ---
Author Organization [facility] Address [address] [place] [address] Care Team Providers Care Sales Assistant Displays Name Role Phone Jovani Wharton DO Primary Care Provider [phone] Jorge Chauhan MD Primary Care Provider Luis Lauren MD Primary Care Provider [phone] Slade Tran MD Primary Care Provider [phone] Encounter Details Date Type Department Care Team (Late st Contact Info) Description 06/11/2019 Lab Requisition [facility] Pathology & Laboratory Medicine - [facility] [address] [place] [address] Unknown, Provider, Social History Tobacco Use Types [...] 4.5 ng/mL 06/12/2019 10:[address] [facility] Blood VENOUS BLOOD / Unknown 06/11/2019 15:19 EST 06/11/2019 22:00 EST [address]arr[address] [facility] - 06/12/2019 10:26 EST NOTE: Serum PSA concentration should not be interpreted as absolute evidence for the presence or absence of malignant disease. Assayed on Siemens ADVIA PCA Auditaur XPT using chemiluminescent technology.??Values obtained by using different assay methods cannot be used interchangeably. us Provider Unknown CHEMISTRY & BLOOD GAS ORDERA BLES Final Result [facility] [address] [place] [address] documented in this encounter Visit Diagnoses Not on filedocumented in this encounter Additional Health Concerns Infection Onset Date Last Indicated Resolved Time R/O COVID-19 11/29/2019 11/29/2019 12/04/2019 22:1 7 EDT documented as of this encounter Care Teams Sales Assistant Displays Relationship Specialty Start Date End Date Jovani Wharton DO PCP - General 10/11/16 10/17/21 Jorge Chauhan MD [address] [place], [place] [address] PCP - General Family Medicine - Primary Care 10/18/21 11/22/21 Luis Lauren MD [address] [employer] [place], [place] [address] PCP - General Family Medicine - Primary Care 11/23/21 11/11/22 Slade Tran MD [facility] [place] [address] PCP - General 11/12/22 documented as of this encounter
--- OUTSIDE RECORDS SUMMARY | 2024-06-08 12:44 | XMS_ITS | Encounter Summary ---
Author Organization [facility] Address [facility] [place] [address] Care Team Providers Care Loader Magazine Grinder Name Role Phone Govind Mendes Primary Care Provider + Encounter Details Date Type Department Care Team (Latest Contact Info) Description 06/02/2024 Travel Social History Tobacco Use Types Packs/Day [...] EST Clinical Support [place] [address] 06/19/2024 2:00 PM EST Office [place] [address] Pepe Horton MD [facility] [place] [address] 08/10/2024 10:00 AM EDT Laboratory Appointment Lab [address] [place] [id number] 08/10/2024 11:20 AM EDT Office Visit Nephrology Hypertension at [place] [address] Jovani Richardson MD [facility] [place] [address] A, Nurse Clinician None 08/20/2024 7:30 AM EDT Hospital Encounter Gastroenterology at [place] [address] Lawrence Gar MD [facility] [place] [address] 08/20/2024 7:30 AM EDT - 08/20/2024 8:15 AM EDT Surgery Gastroenterology at [place] [address] Lawrence Gar MD [facility] [place] [address] EGD, UPPER GI ENDOSCOPY (WRVU 2.09) 11/17/2024 4:20 PM EDT Office Visit Gastroenterology at [place] [address] Lawrence Gar MD [facility] [place] [address] Scheduled Procedures Name Priority Associated Diagnoses Date/Ti me EGD, UPPER GI ENDOSCOPY (WRVU 2.09) Sharma's esophagus with high grade dysplasia 08/20/2024 7:30 AM EDT documented as of this encounter Visit Diagnoses Not on filedocumented in this encounter Care Teams Loader Magazine Grinder Relationship Specialty Start Date End [place] [address] PCP - General Internal Medicine 11/06/23 documented as of this encounter
--- OUTSIDE RECORDS SUMMARY | 2024-06-08 12:44 | XMS_ITS | Encounter Summary ---
Author Organization [facility] Address [address] [place] [address] Care Team Providers Care Card Cutter Name Role Phone DioJovani liu Michel Primary Care Provider [phone]- [phone] Reason for Visit * (Routine/Next Available) - Receiving Office to Obtain Authorization Specialty Diagnoses / Procedures Referred By Devaughn bobo Referred To Contact Procedures XR OUTSIDE IMAGES BODY Imaging, External Referral ID Status Reason Start Date Expiration Date Visits Requested Visits Authorized [id number] Receiving Office to Obtain Authorization 07/26/2021 1 1 Encounter Details Date Type Department Care Team (Latest Contact Info) Description 07/26/2021 22:36 EST - 07/26/2021 23:59 EST Hospital Encounter [facility] Secondary Reads [place] Discharge Disposition: Home [...] 22:36 EST This is a non-reportable exam. us External Imaging IMG OTHER IMAGING ORDERABLES Fi nal Result documented in this encounter Visit Diagnoses Not on filedocumented in this encounter Care Teams Card Cutter Relationship Specialty Start Date End Date Jovani Wharton DO PCP - General 10/11/16 10/17/21 documented as of this encounter
--- OUTSIDE RECORDS SUMMARY | 2024-06-08 12:44 | XMS_ITS | Encounter Summary ---
Author Organization [facility] Address [address] [place] [address] Care Team Providers Care Paraprofessional Aide Name Role Phone Jovani Wharton DO Primary Care Provider [phone] Jorge Chauhan MD Primary Care Provider Luis Lauren MD Primary Care Provider [phone] Slade Tran MD Primary Care Provider [phone] Encounter Details Date Type Department Care Team (Late st Contact Info) Description 03/03/2021 Lab Requisition [facility] Pathology & Laboratory Medicine - [facility] [address], [place] [phone] Outr Resulting Lab, Provider Social History Tobacco [...] EDT Provider Outr Resulting Lab MICROBIOLOGY - GENER AL ORDERABLES Final Result [facility] [address] [place] [address] * COVID-19 TESTING (03/02/2021 13:41 EDT) COVID-19 rt-PCR Result Negative Negative 03/04/2021 11:36 EDT [facility] Comment: This test [...] performed using the shama SARS-CoV-2 assay ([employer] on the Shama 6800 System Performing Lab Shama [address] [facility] Lab 03/04/2021 11:36 EDT [facility] Swab 03/02/2021 13:4 1 EDT 03/03/2021 16:26 EDT us Provider Outr Resulting Lab MICROBIOLOGY - GENER AL ORDERABLES Final Result Performing Organization Address City/[facility]/ZIP Co de Phone Number [facility] [address] [place] [address] documented in this encounter Visit Diagnoses Not on filedocumented in this encounter Care Teams Paraprofessional Aide Relationship Specialty Start Date End Date Jovani Wharton DO PCP - General 10/11/16 10/17/21 Jorge Chauhan MD [address] [place] [phone] PCP - General Family Medicine - Primary Care 10/18/21 11/22/21 Luis Lauren MD [address] [place] [phone] PCP - General Family Medicine - Primary Care 11/23/21 11/11/22 Slade Tran MD [facility] [address] [place], [place] [address] PCP - General 11/12/22 documented as of this encounter
--- OUTSIDE RECORDS SUMMARY | 2024-06-08 12:45 | XMS_ITS | Encounter Summary ---
[place] [address] Care Team Providers Care Ceo Name Role Phone Govind Mendes Primary Care Provider + Encounter Details Date Type Department Care Team (Late st Contact Info) Description 02/03/2024 Telephone Ne[place] [phone] Karol Iverson RN Social History Tobacco Use [...] EST Clinical Support [place] [phone] 06/19/2024 2:00 PM EST Office [place] [address] Pepe Horton MD [facility] [place] [address] 08/10/2024 10:00 AM EDT Laboratory Appointment Lab [address] [place] [phone] 08/10/2024 11:20 AM EDT Office Visit Nephrology Hypertension at [address] Jovani Richardson MD [facility] [place] [address] A, Nurse Clinician None 08/20/2024 7:30 AM EDT Hospital Encounter Gastroenterology at [place] [phone] Lawrence Gar MD [facility] [place] [address] 08/20/2024 7:30 AM EDT - 08/20/2024 8:15 AM EDT Surgery Gastroenterology at [place] [phone] Lawrence Gar MD [facility] [place] [address] EGD, UPPER GI ENDOSCOPY (WRVU 2.09) 11/17/2024 4:20 PM EDT Office Visit Gastroenterology at [place] [phone] Lawrence Gar MD [facility] [place] [address] Scheduled Procedures Name Priority Associated Diagnoses Date/Ti me EGD, UPPER GI ENDOSCOPY (WRVU 2.09) Sharma's esophagus with high grade dysplasia 08/20/2024 7:30 AM EDT documented as of this encounter Visit Diagnoses Not on filedocumented in this encounter Care Teams Ceo Relationship Specialty Start Date End Date Gov[place] [address] [place] [address] PCP - General Internal Medicine 11/06/23 documented as of this encounter
--- OUTSIDE RECORDS SUMMARY | 2024-06-08 12:45 | XMS_ITS | Encounter Summary ---
[place] [address] Care Team Providers Care Cardiopulmonary Specialist Name Role Phone Govind Mendes Primary Care Provider + Encounter Details Date Type Department Care Team (Late st Contact Info) Description 02/07/2024 Telephone Ne[place] [address] Karol Iverson RN Social History Tobacco Use [...] Based on recent kidney function, anesthesia at [facility] wants him to have shoulder replacement at [facility] and he is waiting for [facility] to set up surgery P: Above sent to Dr Richardson for review and recommendation documented in this encounter Plan of Treatment Upcoming Encounters Date Type Department Care Team (Latest Contact Info) Description 06/19/2024 1:40 PM EST Clinical Support [place] [address] 06/19/2024 2:00 PM EST Office Visit [place] [phone] Pepe Horton MD [facility] [place] [address] 08/10/2024 10:00 AM EDT Laboratory Appointment Lab [address] [place] [phone] 08/10/2024 11:20 AM EDT Office Visit [place] [address] Jovani Richardson MD [facility] [place] [address] A, Nurse Clinician None 08/20/2024 7:30 AM EDT Hospital Encounter [place] [phone] Lawrence Gar MD [facility] [place] [address] 08/20/2024 7:30 AM EDT - 08/20/2024 8:15 AM EDT Surgery [place] [phone] Lawrence Gar MD [facility] [place] [address] EGD, UPPER GI ENDOSCOPY (WRVU 2.09) 11/17/2024 4:20 PM EDT Office [place] [address] Lawrence Gar MD [facility] [place] [address] Scheduled Procedures Name Priority Associated Diagnoses Date/Ti me EGD, UPPER GI ENDOSCOPY (WRVU 2.09) Sharma's esophagus with high grade dysplasia 08/20/2024 7:30 AM EDT documented as of this encounter Results * Iron and TIBC (04/30/2024) Pathologist [facility] Iron - External 56 TIBC - External 298 Iron Saturation - External 19 Blood VENOUS BLOOD SPECIMEN / Unknown 04/30/2024 Jovani Richardson MD CHEMISTRY ORDERABLES * Ferritin (04/30/2024) Pathologist [facility] Ferritin - External 194 Blood VENOUS BLOOD SPECIMEN / Unknown 04/30/2024 Jovani Richardson MD CHEMISTRY ORDERABLES * Protein/Creatinine Ratio, urine (04/30/2024) Creatinine, Urine - External 27.87 Protein, Urine Ran - External 141.2 Prot/Cre Ratio - External 5.06 Urine URINE SPECIMEN OBTAINED BY CLEAN CATCH PROCEDURE / Unknown 04/30/2024 Jovani Richardson MD URINE ORDERABLES * Albumin Level (04/30/2024) Pathologist [facility] Albumin - External 3.7 Blood VENOUS BLOOD SPECIMEN / Unknown 04/30/2024 Jovani Richardson MD CHEMISTRY ORDERABLES * Phosphorus (04/30/2024) Pathologist [facility] Phosphorus - External 6.0 Blood VENOUS BLOOD SPECIMEN / Unknown 04/30/2024 Jovani Richardson MD CHEMISTRY ORDERABLES * Basic Metabolic Panel Non-fasting (04/30/2024) Pathologist [facility] Glucose Lvl - External 109 Blood Urea Nitrogen - External 84 Creatinine - External 5.4 EGFR - External 10.7 Sodium - External 139 Potassium - External 5.4 Chloride - External 102 CO2 - External 24.7 Calcium - External 8.6 Anion Gap - External 12.3 Blood VENOUS BLOOD SPECIMEN / Unknown 04/30/2024 Jovani Richardson MD CHEMISTRY ORDERABLES * CBC (with Diff) (04/30/2024) Pathologist [facility] WBC - External 5.57 RBC - External 3.14 Hemoglobin - External 10.0 Hematocrit - External 30.3 MCV - External 97 MCH - External 31.8 MCHC - External 33.0 RDWCV - External 13.6 Platelets - External 190 MPV - External 10.1 Blood VENOUS BLOOD SPECIMEN / Unknown 04/30/2024 Jovani Richardson MD HEMATOLOGY ORDERABLE S documented in this encounter Visit Diagnoses Diagnosis CKD (chronic kidney disease) stage 5, GFR less than 15 ml/min Chronic kidney disease, Stage V Sharma's esophagus with high grade dysplasia Sharma's esophagus documented in this encounter Care Teams Cardiopulmonary Specialist Relationship Specialty Start Date End Date [place] [address] [place] [address] PCP - General Internal Medicine 11/06/23 documented as of this encounter
--- OUTSIDE RECORDS SUMMARY | 2024-06-08 12:45 | XMS_ITS | Encounter Summary ---
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 Efrem Roche MD [address] [place] [address] Nolan Sandoval MD [facility] [place] [address] Referral ID Status Reason Start Date Expiration Date V isits Requested Visits Authorized [id number] Closed Consult, Test & Treat PCP Updated and/or Approved 02/04/2024 02/03/2025 6 6 Encounter Details Date Type Department Care Team (Latest Contact Info) Description 02/24/2024 Transcribe Orders eDH Incoming Referrals [phone] Efrem Roche MD [address] [place], [place] [phone] Bilateral shoulder bursitis Social History Tobacco Use Types Packs/Day Years [...] EST Clinical Support Solid Organ Transplant at [place] [address] 06/19/2024 2:00 PM EST Office Visit Solid Organ Transplant at [place] [address] Pepe Horton MD [facility] [place] [address] 08/10/2024 10:00 AM EDT Laboratory Appointment Lab [address] [place] [address] 08/10/2024 11:20 AM EDT Office Visit Nephrology Hypertension at [place] [address] Jovani Richardson MD [facility] [place] [address] A, Nurse Clinician None 08/20/2024 7:30 AM EDT Hospital Encounter Gastroenterology at [place] [address] Lawrence Gar MD [facility] [place] [address] 08/20/2024 7:30 AM EDT - 08/20/2024 8:15 AM EDT Surgery Gastroenterology at [place] [phone] Lawrence Gar MD [facility] [place] [address] EGD, UPPER GI ENDOSCOPY (WRVU 2.09) 11/17/2024 4:20 PM EDT Office [place] [address] Lawrence Gar MD [facility] [place] [address] Scheduled Procedures Name Priority Associated Diagnoses Date/Ti me EGD, UPPER GI ENDOSCOPY (WRVU 2.09) Sharma's esophagus with high grade dysplasia 08/20/2024 7:30 AM EDT Scheduled Referrals Name Type Priority Associated Diagnoses Order Schedule Referral to Orthopaedics Outpatient Referral Routine Bilateral shoulder bursitis Ordered: 02/24/2024 documented as of this encounter Visit Diagnoses Diagnosis Bilateral shoulder bursitis Sharma's esophagus with high grade dysplasia Sharma's esophagus documented in this encounter Care Teams Sanitation Supervisor Relationship Specialty Start Date End Date Govind Mend[place] [address] [place] [address] PCP - General Internal Medicine 11/06/23 documented as of this encounter
--- OUTSIDE RECORDS SUMMARY | 2024-06-08 12:45 | XMS_ITS | Encounter Summary ---
[place] [address] Care Team Providers Care Nutritional Chemist Name Role Phone Govind Mendes Primary Care Provider + Encounter Details Date Type Department Care Team (Late st Contact Info) Description 02/27/2024 Telephone Neph[place] [phone] Karol Iverson, RN Social History Tobacco Use [...] Telephone Encounter - Karol Iverson RN - 02/27/2024 2:14 PM EDT Called patient. Message left on home voicemail to call CKD Nurse Clinician documented in this encounter Plan of Treatment Upcoming Encounters Date Type Department Care Team (Latest Contact Info) Description 06/19/2024 1:40 PM EST Clinical Support [place] [phone] 06/19/2024 2:00 PM EST Office Visit Solid Organ Transplant at [place] [phone] Pepe Horton MD [facility] [place] [address] 08/10/2024 10:00 AM EDT Laboratory Appointment Lab [address] [place], [place] [phone] 08/10/2024 11:20 AM EDT Office Visit Nephrology Hypertension at [address]1000 Jovani Richardson MD [facility] [place] [address] A, Nurse Clinician None 08/20/2024 7:30 AM EDT Hospital Encounter Gastroenterology at [place] [phone] Lawrence Gar MD [facility] [place] [address] 08/20/2024 7:30 AM EDT - 08/20/2024 8:15 AM EDT Surgery Gastroenterology at [place] [phone] Lawrence Gar MD [facility] [place] [address] EGD, UPPER GI ENDOSCOPY (WRVU 2.09) 11/17/2024 4:20 PM EDT Office Visit Gastroenterology at [place] [phone] Lawrence Gar MD [facility] [place] [address] Scheduled Procedures Name Priority Associated Diagnoses Date/Ti me EGD, UPPER GI ENDOSCOPY (WRVU 2.09) Sharma's esophagus with high grade dysplasia 08/20/2024 7:30 AM EDT documented as of this encounter Visit Diagnoses Not on filedocumented in this encounter Care Teams Nutritional Chemist Relationship Specialty Start Date End Date Govind [place] [address] PCP - General Internal Medicine 11/06/23 documented as of this encounter
--- OUTSIDE RECORDS SUMMARY | 2024-06-08 12:45 | XMS_ITS | Encounter Summary ---
Author Organization [facility] [place] [address] Care Team Providers Care Pharmaceutical Sales Specialist Name Role Phone Govind Mendes Primary Care Provider + Reason for Visit * Auth/Cert (Routine) Specialty Diagnoses / Procedures Referred By Devaughn bobo Referred To Contact Diagnoses Sharma's esophagus with high grade dysplasia F/up Sharma's ablation Procedures PRO UPPER GI ENDOSCOPY, DIAGNOSTIC PRO UPPER GI ENDOSCOPY, BIOPSY PRO UP GI ENDOSCOPY, REMV TUMOR, SNARE PRO ANES, UGI ENDOSCOPY NOS EGD, UPPER GI ENDOSCOPY (WRVU 2.09) Lawrence Gar MD [facility] [place] [address] [facility] Referral ID Status Reason Start Date Expiration Date Visits Re quested Visits Authorized [id number] 1 1 Encounter Details Date Type Department Care Team (Latest Contact Info) Description 04/06/2024 8:14 AM EST - 04/06/2024 1:07 PM EST Hospital Encounter [place] [address] Lawrence Gar MD [facility] [place] [address] Sharma's esophagus with high grade dysplasia (Primary [...] Sign Reading Time Taken Comments Blood Pressure 146/84 04/06/2024 12:10 PM EST Pulse 70 04/06/2024 9:03 AM EST Temperature 36.9 ??C (98.4 ??F) 04/06/2024 9:03 AM ES T Respiratory Rate 18 04/06/2024 12:00 PM EST Oxygen Saturation 97% 04/06/2024 12:20 PM EST Inhaled Oxygen Concentration - - Weight - - Height - - Body Mass Index - - documented in this encounter Discharge Instructions * Discharge Instructions* Michelle Diaz LPN - 04/06/2024 11:33 AM EST Upper GI Endoscopy: What to Expect at [...] the day after the procedure, use an jhkc-ldm-cfoeyse spray to numb your throat. Sucking on [...] occurs, please contact your Doctor. Please call [phone] before 8pm Mon-Fri with problems, questions or concerns. If you call after 8pm or on weekends, call the Hospital at [phone] and ask to speak to the [employer] fire control officer and the offset assistant press operator will contact that person for you. When should you call for help? Call [phone] anytime you think you may need emergency [...] After Visit Summary and more online at [email or web address] If you would like to provide feedback [...] cost to you. Content Version: 12.2 ?? 1452-1630 [employer]. Care instructions adapted under license by [facility]. If you have questions about a medical condition or this instruction, always ask your healthcare professional. [employer] disclaims any warranty or liability for your use of this information. documented in this encounter Medications at Time of Discharge Medication Sig Dispensed Refills Start Date End Date calciTRIoL (Rocaltrol) 0.5 mcg capsule Take 1 [...] total per month 45 g 3 08/11/2020 sevelamer carbonate (Renvela) 800 mg tablet Take 1 tablet by mouth 3 times daily (with meals). 270 tablet 3 02/27/2024 05/19/2024 b complex vitamins Tablet Take 1 tablet by mouth daily. 05/06/2024 documented as of this encounter Progress Notes * Silvia Christian RN - 04/06/2024 12:49 PM EST Patient alert and oriented, vital signs stable. Reviewed discharge instructions; patient and Yen verbalized understanding. Copy of instruction sheet with contact numbers for questions/concerns. Pain assessment documented. Patient escorted out of department via wheelchair with Yen. documented in this encounter H&P Notes * Lawrence Gar MD - 04/06/2024 10:37 AM EST Gastroenterology and Hepatology Pre-Procedure History and Physical Exam Procedure: EGD: Indication: F/up RFA of Sharma's with HGD and f/up gastric ulcer. Patient Active Problem List Diagnosis Code Pancreatitis [...] EST Clinical Support [place] [address] 06/19/2024 2:00 PM EST Office [place] [phone] Pepe Horton MD [facility] [place] [address] 08/10/2024 10:00 AM EDT Laboratory Appointment Lab [address] [place] [phone] 08/10/2024 11:20 AM EDT Office Visit Ne[place] [phone] Jovani Richardson MD [facility] [place] [address] A, Nurse Clinician None 08/20/2024 7:30 AM EDT Hospital Encounter [place] [phone] Lawrence Gar MD [facility] [place] [address] 08/20/2024 7:30 AM EDT - 08/20/2024 8:15 AM EDT [place] [address] Lawrence Gar MD [facility] [place] [address] EGD, UPPER GI ENDOSCOPY (WRVU 2.09) 11/17/2024 4:20 PM EDT Office [place] [address] Lawrence Gar MD [facility] [place] [address] Scheduled Orders Name Type Priority Associated Diagnoses Orde r Schedule ENDOSCOPY CASE REQUEST: EGD, UPPER GI ENDOSCOPY (WRVU 2.09) Procedures Routine Sharma's esophagus with high grade dysplasia Ordered: 04/06/2024 Scheduled Procedures Name Priority Associated Diagnoses Date/Ti me EGD, UPPER GI ENDOSCOPY (WRVU 2.09) Sharma's esophagus with high grade dysplasia 08/20/2024 7:30 AM EDT documented as of this encounter Procedures Procedure Name Priority Date/Time Associated Diagnosis Comments SURGICAL PATHOLOGY Routine 04/06/2024 11 :13 AM EST Sharma's esophagus with high grade dysplasia Upper Gi Endoscopy, Biopsy ([id number]) 04/06/2024 10:58 AM EST Sharma's esophagus with high grade dysplasia Edg Flexible Transoral Ablate Tumor Polyp/Lesion W/Dilation & Wire ([id number]) 04/06/2024 10:58 AM EST Sharma's esophagus with high grade dysplasia UPPER GI ENDOSCOPY Routine 04/06/2024 10 :43 AM EST documented in this encounter Results * Surgical Pathology (04/06/2024 11:13 AM EST) Case Report Surgical Pathology Report ? Case: [id number] ? Authorizing Provider: ??Lawrence Gar MD ? Collected: ? 04/06/2024 1113 ? Ordering Location: ? [facility]enterology at [facility] ?? Received: ?04/06/2024 1233 ? Pathologist: ? Khoi Morfin MD ? Specimen: ?Stomach, gastric biospies ? 04/16/2024 10:24 AM [facility] Report Update History x 04/16/2024 10:24 AM EST [facility] Final Diagnosis A. Stomach, gastric biospies Biopsy: - Antrum-type mucosa with reactive gastropathy and intestinal metaplasia - Body/fundic-type mucosa, negative for diagnostic abnormality. 04/16/2024 10:24 AM [facility] Clinical Information A. Stomach, gastric biospies Rule out Helicobacter pylori 69 yo male, hx of gastric ulcer 04/16/2024 10:24 AM EST [facility] Gross Description A. Stomach, gastric biospies. A - Labeled/Fixative: Stomach gastric biopsies, formalin. Quantity/Size: Six, ranging from 0.2 cm to 0.4 cm. Tissue Description: Soft, mario-brown tissues. Sections/Processin g: Submitted in toto in 2 cassettes labeled A1-A2. CAK 04/16/2024 10:24 AM EST [facility] Result Note Routine 04/16/2024 10:24 AM EST [facility] Tissue STOMACH STRUCTURE / Unknown 04/06/2024 11:13 AM EST 04/06/2024 12:33 PM EST Comment:69 yo male, hx of ga stric ulcer Lawrence Gar MD PATHOLOGY/CYTOLOGY O RDERAXIN [facility] [place] [address] * UPPER GI ENDOSCOPY (04/06/2024 10:43 AM EST) UPPER GI ENDOSCOPY [facility] ___ Procedure Date: 04/06/2024 10:43 AM ? Patient Name: Mathew Mendez ? N: [id number] ? Date of : 1955 ? Age: 69 ? Order #: [id number] ? Instrument Name: [id number] ? ___ Procedure: ? Upper GI endoscopy Indications: ? Follow-up of previous ? radiofrequency ablation treatment ? of Sharma's esophagus, hx HGD Providers: ? Lawrence Gar MD, Natasha [place] ? Darcy, Julianna Sharma, ? Comic Writer, Cecelia Landers MD: ?Govind Haddad: ? Monitored Anesthesia Care Complications: ? No [...] classified as ? Sharma's stage C0-M1 per Wayne criteria. These ? changes involved the mucosa [...] classified as Sharma's stage C0-M1 ? per Wayne criteria (minimal ? residual Sharma's). Treated with [...] AM EST Govind ROBERTS GENERAL SURGICAL ORDERABLES Performing Organization Address City/State/[facility] Co de Phone Number [employer] documented in this encounter Visit Diagnoses Diagnosis Sharma's esophagus with high grade dysplasia- Primary Sharma's esophagus Sharma's esophagus with high grade dysplasia Sharma's esophagus documented in this encounter Active and Recently Administered Medications Care Teams Pharmaceutical Sales Specialist Relationship Specialty Start Date End Date Govind Mendes PA [facility] [place] [address] PCP - General Internal Medicine 11/06/23 documented as of this encounter
--- OUTSIDE RECORDS SUMMARY | 2024-06-08 12:45 | XMS_ITS | Encounter Summary ---
Author Organization [facility] [place] [address] Care Team Providers Care Spool Sander Name Role Phone Govind Mendes Primary Care Provider + Encounter Details Date Type Department Care Team (Late st Contact Info) Description 05/14/2024 Telephone [place] [phone] Cecelia Fisher APRN [facility] [place] [address] Social History Tobacco Use Types Packs/Day Years [...] EST Clinical Support [place] [phone] 06/19/2024 2:00 PM EST Office Visit [place] [phone] Pepe Horton MD [facility] [place] [address] 08/10/2024 10:00 AM EDT Laboratory Appointment Lab [address] [place] [address] 08/10/2024 11:20 AM EDT Office Visit Nephrology Hypertension at [place] [address] Jovani Richardson MD [facility] [place] [address] A, Nurse Clinician None 08/20/2024 7:30 AM EDT Hospital Encounter Gastroenterology at [place] [address] Lawrence Gar MD [facility] [place] [address] 08/20/2024 7:30 AM EDT - 08/20/2024 8:15 AM EDT Surgery Gastroenterology at [place] [address] Lawrence Gar MD [facility] [place] [address] EGD, UPPER GI ENDOSCOPY (WRVU 2.09) 11/17/2024 4:20 PM EDT Office Visit Gastroenterology at [place] [phone] Lawrence Gar MD [facility] [place] [address] Scheduled Procedures Name Priority Associated Diagnoses Date/Ti me EGD, UPPER GI ENDOSCOPY (WRVU 2.09) Sharma's esophagus with high grade dysplasia 08/20/2024 7:30 AM EDT documented as of this encounter Visit Diagnoses Not on filedocumented in this encounter Care Teams Spool Sander Relationship Specialty Start Date End Date Cinthya, Govind Juno, PA Scot JUAREZ [place] [address] PCP - General Internal Medicine 11/06/23 documented as of this encounter
--- OUTSIDE RECORDS SUMMARY | 2024-06-08 12:45 | XMS_ITS | Encounter Summary ---
Author Organization [facility]ly [facility] [place] [address] Care Team Providers Care Corporate Director Of Pharmacy Name Role Phone Govind Mendes Primary Care Provider + Encounter Details Date Type Department Care Team (Late st Contact Info) Description 05/22/2024 Telephone [place] [address] Shelly Geiger Social History Tobacco Use Types Packs/Day Years [...] EST Clinical Support [place] [address] 06/19/2024 2:00 PM EST Office Visit [place] [phone] Pepe Horton MD [facility] [place] [address] 08/10/2024 10:00 AM EDT Laboratory Appointment Lab [address] [place] [address] 08/10/2024 11:20 AM EDT Office Visit Nephrology Hypertension at [place] [address] Jovani Richardson MD [facility] [place] [address] A, Nurse Clinician None 08/20/2024 7:30 AM EDT Hospital Encounter Gastroenterology at [place] [address] Lawrence Gar MD [facility] [place] [address] 08/20/2024 7:30 AM EDT - 08/20/2024 8:15 AM EDT Surgery Gastroenterology at [place] [address] Lawrence Gar MD [facility] [place] [address] EGD, UPPER GI ENDOSCOPY (WRVU 2.09) 11/17/2024 4:20 PM EDT Office Visit Gastroenterology at [place] [address] Lawrence Gar MD [facility] [place] [address] Scheduled Procedures Name Priority Associated Diagnoses Date/Ti me EGD, UPPER GI ENDOSCOPY (WRVU 2.09) Sharma's esophagus with high grade dysplasia 08/20/2024 7:30 AM EDT documented as of this encounter Visit Diagnoses Not on filedocumented in this encounter Care Teams Corporate Director Of Pharmacy Relationship Specialty Start Date End Date [place] [address] PCP - General Internal Medicine 11/06/23 documented as of this encounter
--- OUTSIDE RECORDS SUMMARY | 2024-06-08 12:45 | XMS_ITS | Encounter Summary ---
[place] [address] Care Team Providers Care Psychological Anthropologist Name Role Phone Govind Mendes Primary Care Provider + Encounter Details Date Type Department Care Team (Late st Contact Info) Description 02/05/2024 Orders Only Nephrology [place] [phone] Karol Iverson RN Social History Tobacco Use [...] EST Clinical Support [place] [phone] 06/19/2024 2:00 PM EST Office Visit [place] [phone] Pepe Horton MD [facility] [place] [address] 08/10/2024 10:00 AM EDT Laboratory Appointment Lab [address] [place] [address] 08/10/2024 11:20 AM EDT Office Visit Nephrology Hypertension at [place] [address] Jovani Richardson MD [facility] [place] [place] [address] A, Nurse Clinician None 08/20/2024 7:30 AM EDT Hospital Encounter Gastroenterology at [place] [address] Lawrence Gar MD [facility] [place] [address] 08/20/2024 7:30 AM EDT - 08/20/2024 8:15 AM EDT Surgery Gastroenterology at [place] [address] Lawrence Gar MD [facility] [place] [address] EGD, UPPER GI ENDOSCOPY (WRVU 2.09) 11/17/2024 4:20 PM EDT Office Visit Gastroenterology at [place] [address] Lawrence Gar MD [facility] [place] [address] Scheduled Procedures Name Priority Associated Diagnoses Date/Ti me EGD, UPPER GI ENDOSCOPY (WRVU 2.09) Sharma's esophagus with high grade dysplasia 08/20/2024 7:30 AM EDT documented as of this encounter Visit Diagnoses Not on filedocumented in this encounter Care Teams Psychological Anthropologist Relationship Specialty Start Date End Date Govind Mendes [place] [facility] [place] [address] PCP - General Internal Medicine 11/06/23 documented as of this encounter
--- OUTSIDE RECORDS SUMMARY | 2024-06-08 12:45 | XMS_ITS | Encounter Summary ---
[place] [address] Care Team Providers Care Commercial Loan Reviewer Name Role Phone Govind Mendes Primary Care Provider + Reason for Visit * Auth/Cert (Routine) Specialty Diagnoses / Procedures Referred By Devaughn bobo Referred To Contact Diagnoses Stage 4 CKD Procedures POST PROCEDURE RECOVERY Alvarez Lentz MD [facility] [place] [address] [facility] Referral ID Status Reason Start Date Expiration Date Visits Re quested Visits Authorized [id number] 1 1 Encounter Details Date Type Department Care Team (Latest Contact Info) Description 06/02/2024 9:45 AM EST - 06/02/2024 2:14 PM [facility] Hospital Encounter [place] [address] Alvarez Lentz MD [facility] [place] [address] Discharge Disposition: Home Social History Tobacco Use [...] Pressure 124/71 06/02/2024 1:45 PM EST Pulse - - Temperature 37 ??C (98.6 ??F) 06/02/2024 10:03 AM EST Respiratory Rate 16 06/02/2024 1:45 PM EST Oxygen Saturation 92% 06/02/2024 1:45 PM EST Inhaled Oxygen Concentration - - Weight - - Height - - Body Mass Index - - documented in this encounter Medications at Time [...] of bedrest and two hours of observation. in to see pt before dc home. Pt voided twice prior to dc and ordered labs drawn and sent. Pt had no IV access. Pt discharged to home with . Gildardo RN documented in this encounter Plan of Treatment Upcoming Encounters Date Type Department Care Team (Latest Contact Info) Description 06/19/2024 1:40 PM EST Clinical Support [place] [phone] 06/19/2024 2:00 PM EST Office Visit Solid Organ Transplant at [place] [phone] Pepe Horton MD [facility] [place] [address] 08/10/2024 10:00 AM EDT Laboratory Appointment Lab [address] [phone] 08/10/2024 11:20 AM EDT Office Visit [place] [address] Jovani Richardson MD [facility] [place] [address] A, Nurse Clinician None 08/20/2024 7:30 AM EDT Hospital Encounter Gastroenterology at [place] [phone] Lawrence Gar MD [facility] [place] [address] 08/20/2024 7:30 AM EDT - 08/20/2024 8:15 AM EDT Surgery Gastroenterology at [place] [phone] Lawrence Gar MD [facility] [place] [address] EGD, UPPER GI ENDOSCOPY (WRVU 2.09) 11/17/2024 4:20 PM EDT Office Visit [place] [address] Lawrence Gar MD [facility] [address] Pending Results Name Type Priority Associated Diagnoses Date /Time [facility] Lab Routine 06/02 9:33 AM EST Scheduled Orders Name Type Priority Associated Diagnoses Orde r Schedule [facility] Lab Routine One T petar for 1 [...] 65 - 199 mg/dL 06/02/2024 10:57 AM [facility] Comment:Glucose Concentratio n >=200 mg/dL plus symptoms is consistent with Diabetes Mellitus. Blood Urea Nitrogen 77(H) 10 - 20 mg/dL 06/02/2024 10:57 AM [facility] Creatinine 5.65(H) 0.80 - 1.50 mg/dL 06/02/2024 10:57 AM [facility] Sodium 140 135 - 145 mMol/L 06/02/2024 10:57 AM [facility] Potassium 5.4(H) 3.5 - 5.0 mMol/L 06/02/2024 10:57 AM [facility] Chloride 105 98 - 107 mMol/L 06/02/2024 10:57 AM [facility] Carbon Dioxide 22 22 - 31 mMol/L 06/02/2024 10:57 AM [facility] Anion Gap 13 5 - 15 mMol/L 06/02/2024 10:57 AM [facility] Calcium 8.7 8.5 - 10.5 mg/dL 06/02/2024 10:57 AM [facility] Est Glomerular Filtration Rate - Male 10 mL/min/1. 73 m?? 06/02/2024 10:57 AM [facility] Comment: This patient's estimated GFR [...] Foundation Fasting Status No 06/02/2024 10:57 AM [facility] Blood VENOUS BLOOD SPECIMEN / Unknown Venipuncture / Unknown 06/02/2024 10:23 AM EST 06/02/2024 10:28 AM EST Alvarez Lentz MD CHEMISTRY ORDERABLES [facility] [place] [address] documented in this encounter Visit Diagnoses Not [...] Routine documented in this encounter Care Teams Commercial Loan Reviewer Relationship Specialty Start Date End Date Govind Mendes [place] [address] PCP - General Internal Medicine 11/06/23 documented as of this encounter
--- OUTSIDE RECORDS SUMMARY | 2024-06-08 12:45 | XMS_ITS | Encounter Summary ---
Author Organization [facility] [place] [address] Care Team Providers Care Medical Auditor Name Role Phone Govind Mendes Primary Care [...] ENDOSCOPY (WRVU 2.09) Lawrence Gar MD [facility] [place] [address] [facility] Referral ID Status Reason Start Date Expiration Date Visits Re quested Visits Authorized [id number] 1 1 Encounter Details Date Type Department Care Team (Late st Contact Info) Description 01/02/2024 7:30 AM EDT - 01/02/2024 8:30 AM EDT [place] [address] Lawrence Gar MD [facility] [address] EGD,WITH ABLATION OF TUMOR OR OTHER LESION [...] the day after the procedure, use an pzjo-mqd-qeciyrp spray to numb your throat. Sucking on [...] occurs, please contact your Doctor. Please call [phone] before 8pm Mon-Fri with problems, questions or concerns. If you call after 8pm or on weekends, call the Hospital at [phone] and ask to speak to the Paste Mixer Liquid salon assistant and the veneer slicing machine operator will contact that person for you. When should you call for help? Call [phone] anytime you think you may need emergency [...] Visit Summary and more online at [email or web address] If you would like to provide [...] cost to you. Content Version: 12.2 ?? 1712-1648 [employer]. Care instructions adapted under license by [facility]. If you have questions about a medical condition or this instruction, always ask your healthcare professional. [employer] disclaims any warranty or liability for your [...] the day after the procedure, use an gukl-qqt-ikzeldr spray to numb your throat. Sucking on [...] occurs, please contact your Doctor. Please call [phone] before 8pm Mon-Fri with problems, questions or concerns. If you call after 8pm or on weekends, call the Hospital at [phone] and ask to speak to the Paste Mixer Liquid salon assistant and the veneer slicing machine operator will contact that person for you. When should you call for help? Call [phone] anytime you think you may need emergency [...] learn more? [facility] View your After Visit Summary and more online at [email or web address] If you would like to provide [...] cost to you. Content Version: 12.2 ?? 0022-5107 [employer]. Care instructions adapted under license by [facility]. If you have questions about a medical condition or this instruction, always ask your healthcare professional. [employer] disclaims any warranty or liability for your [...] mouth daily. 90 tablet 3 11/07/2023 02/05/2024 calciTRIoL (Rocaltrol) 0.25 mcg capsule Take 1 capsule by mouth daily. 90 capsule 3 11/07/2023 02/27/2024 b complex vitamins Tablet Take 1 tablet [...] wheelchair with his . * Cathi Cruz LPN - 12/19/2023 7:12 AM EDT Past Medical [...] EST Clinical Support Solid Organ Transplant at [place] [phone] 06/19/2024 2:00 PM EST Office Visit Solid Organ Transplant at [place] [phone] Pepe Horton MD [facility] [address] [place] [address] 08/10/2024 10:00 AM EDT Laboratory Appointment Lab [address] [phone] 08/10/2024 11:20 AM EDT Office Visit Nephrology Hypertension at [address] Jovani Richardson MD [facility] [place] [address] A, Nurse Clinician None 08/20/2024 7:30 AM EDT Hospital Encounter Gastroenterology at [place] [phone] Lawrence Gar MD [facility] [place] [place] [address] 08/20/2024 7:30 AM EDT - 08/20/2024 8:15 AM EDT Surgery Gastroenterology at [place] [phone] Lawrence Gar MD [facility] [place] [address] EGD, UPPER GI ENDOSCOPY (WRVU 2.09) 11/17/2024 4:20 PM EDT [facility] [place] [address] Lawrence Gar MD [facility] DR [place] [address] Scheduled Orders Name Type Priority Associated Diagnoses [...] with dysplasia Esophagoscopy Flexible Transoral Lesion Ablation (39383) 01/02/2024 7:57 AM EDT Sharma's esophagus with dysplasia UPPER GI ENDOSCOPY Routine 01/02/2024 7: 26 AM EDT documented in this encounter Results * UPPER GI ENDOSCOPY (01/02/2024 7:26 AM EDT) UPPER GI ENDOSCOPY [facility] Endoscopy ___ Procedure Date: 01/02/2024 7:26 AM ? Patient Name: Mathew Mendez ? Date of : 1955 ? Age: 68 ? Order #: [id number] ? Instrument Name: [id number] ? ___ Procedure: ? Upper GI endoscopy [...] on Ladan 01/02/24 at 0730, Until Ladan 8 at 0839, Endoscopy (Day of Procedure) 0715 (New Bag - Prov ider: Deya Hairston RN) documented in this encounter Care Teams Medical Auditor Relationship Specialty Start Date End [place] [address] PCP - General Internal Medicine 11/06/23 documented as of this encounter
--- OUTSIDE RECORDS SUMMARY | 2024-06-08 12:45 | XMS_ITS | Encounter Summary ---
Author Organization Formerly [facility] Address [facility] [place] [address] Care Team Providers Care Rinkman Name Role Phone Govind Mendes Primary Care Provider + Reason for Referral * Consultation (Routine) - Authorized Specialty Diagnoses / Procedures Referred By Devaughn bobo Referred To Contact Transplant Diagnoses Acute worsening of stage 4 chronic kidney disease Anemia of chronic renal failure, stage 4 (severe) Hyperparathyroidism due to renal insufficiency Hyperkalemia Primary hypertension TXP Aurora Grant MD [facility] [place] [address] Pepe Horton MD [facility] [place] [address] Referral ID Status Reason Start Date Expiration Date Visits Requested Visits Authorized [id number] Authorized Consult, Test & Treat 05/06/2024 05/06/2025 1 1 Encounter Details Date Type Department Care Team (Latest Contact Info) Description 05/06/2024 9:00 AM EST Office Visit Nephrology [place] [address] Aurora Marrero MD [facility] [place] [address] A, Nurse Clinician None Acute worsening of stage 4 chronic kidney disease (Primary Dx); Anemia of chronic renal failure, stage 4 (severe); Hyperparathyroidism due to renal insufficiency; Hyperkalemia; Primary hypertension Social History Tobacco Use Types [...] Sign Reading Time Taken Comments Blood Pressure 150/89 05/06/2024 9:41 AM EST Pulse 72 05/06/2024 9:41 AM EST Temperature - - Respiratory Rate - - Oxygen Saturation - - Inhaled Oxygen Concentration - - Weight 68.2 kg (150 lb 6.4 oz) 05/06/2024 8:59 A M EST Height - - Body Mass Index 24.28 11/19/2023 4:42 PM EDT documented in this encounter Patient Instructions * Patient Instructions* Lizet Hayward RN - 05/06/2024 9:00 AM EST Your kidney function is doing a little worse this winter than it was in the summertime. Dr. Marrero is not quite sure why this is happening and he is a little concerned that there might be something else going on to cause this decline. Your blood pressures are up a little but this may not be the cause. Dr. Marrero would recommend having a kidney biopsy, which is done with ultrasound guidance to remove a sample of tissue from your kidney to be viewed under a microscope. This would show if there issomething happening at a cellular level to cause this change in kidney function. There is a risk of bleeding with the biopsy so you would be observed for about four hours to make sure you do not have any bleeding and you would not be able to lift more than 10 pounds for two weeksafterward. This may not show anything but it is the best chance to determine why your kidney function is declining. Another option is to have an ultrasound of your kidneys to see if there is a blockage somewhere. Ifthere is, given the double voiding you are experiencing, we can refer you to urology to fix any obstructive issues. Sometimes this is enough to fix the problem and create some improvement in your kidney function. Kidney disease is a largely silent disease until it is at a point where you need to act. We would like you to start thinking about different options related to dialysis to see what you would like to do for future planning. You can choose to do dialysis in a center or you can do it at your home. You can also be evaluated for transplant if you would like to do that. Your blood pressure is a little elevated in the office today but Dr. Marrero doesn't like to make changes based on one elevated reading, and you did come into this appointment a little nervous about your blood work. Your potassium is a little elevated today. Given the swelling, the elevated potassium and your blood pressure being up, Dr. Marrero would like to have you start a diuretic in the mornings. This will help improve all three of these things. If you have to travel for a distance, take the medication later in the day. If you try it and it isn't bearable with the increase in urination, let us know. Phosphorus Tips for People with Chronic Kidney Disease (CKD) What Is Phosphorus? Phosphorus is a mineral that helps keep your bones healthy. It also helps keep blood vessels and muscles working. Phosphorus is found naturally in foods rich in protein, such as meat, poultry, fish, nuts, beans, and dairy products. Phosphorus is also added to many processed foods. Why Is Phosphorus Important for People with CKD? When you have CKD, phosphorus can build up in your blood, making your bones thin, weak, and more likely to break. It can cause itchy skin, and bone and joint pain. Most people with CKD need to eat foods with less phosphorus than they are used to eating. Your health care provider may talk to you about taking a phosphate binder with meals to lower the amount of phosphorus in your blood. Foods Lower in Phosphorus Fresh fruits and vegetables Rice milk (not enriched) [place] and rice cereals Light-colored sodas/pop Breads, pasta, rice Home-brewed iced tea Foods Higher in Phosphorus Meat, poultry, fish Dairy foods Beans, lentils, nuts Bran cereals and oatmeal Penny Some bottled iced tea How Do I Lower Phosphorus in My Diet? Know what foods are lower in phosphorus. Eat smaller portions of foods high in protein at meals and for snacks. - Meat, poultry, and fish: A cooked portion should be about 2 to 3 ounces or about the size of a deck of cards. ~Dairy foods: Keep your portions to ?? cup of milk or yogurt,or one slice of cheese. - Beans and lentils: Portions should be about ?? cup of cooked beans or lentils. - Nuts: Keep your portions to about ?? cup of nuts. Eat fresh fruits and vegetables-if you have not been told to watch your potassium Many packaged foods have added phosphorus. Look for phosphorus, or for word with PHOS, on ingredient labels, like the one below. Choose a different food when the ingredient list has PHOS on the label. Ingredients: Potatoes, Vegetable Oil (Partially Hydrogenated Soybean Oil), Salt, Dextrose, Disodium Dihydrogen Pyrophosphate ... Examples of Foods that May Have Added Phosphorus Fresh* and frozen uncooked meats and poultry Chicken nuggets Baking mixes Frozen baked goods Cereals, cereal bars Instant puddings and sauces Ask the block engraver to show you which fresh meats do not have added phosphorus. For more information, visit www.niddk.nih.gov or call . This content is provided as a service of the National Ava of Diabetes and Digestive and Kidney Diseases (NIDDK), part of the National Institutes of Health. The NIDDK translates and disseminates research findings to increase knowledge and understanding about health and disease among patients, health professionals, and the public. Content produced by the NIDDK is carefully reviewed by NIDDK scientists and other experts. NIH Publication No. 10-7407 August 2009 What ls Potassium? Potassium is a mineral that helps your nerves and muscles work the right way. Why ls Potassium Important for People with CKD? In some people with CKD, the kidneys may not remove extra potassium from the blood. Some medicines also can raise your potassium level. Your food choices can help you lower your potassium level. How Do I Know My Potassium Is High? People often do not feel any different when their potassium is high. Your health care provider will check the level of potassium in your blood and the medicines you take. The level of potassium in your blood should be between 3.5 to 5.0.* *Normal ranges may vary. How Do I Lower Potassium in My Diet? Eat smaller portions of foods high in protein at meals and for snacks: meat, poultry, fish, beans, dairy, and nuts. Use spices and herbs in cooking and at the table. Salt substitutes often contain potassium and should not be used. Potassium chloride can be used in place of salt in some packaged foods, like canned soups and tomato products. Limit foods with potassium chloride on the ingredient list. Drain canned fruits and vegetables before eating. If you have diabetes, choose apple, grape, or cranberry juice when your blood sugar goes down. EatThese Foods Instead of These Foods White rice Brown and wild rice White bread and pasta Whole wheat bread and pasta Cooked rice and wheat cereals Bran cereals Rice milk (not enriched) Cow's milk Choose fruits and vegetables that are lower in potassium. Have very small portions of foods that are higher in potassium, like one slice of tomato on a sandwich, a few slices of banana on cereal, or half of an orange . Fruits and Vegetables Lower in Potassium (200 mg or less*) FRUITS Apples/apple juice/applesauce Pears Apricots (canned)/apricot nectar Peaches Berries Plums Cranberry juice Pineapple Fruit cocktail Rhubarb Grapes/grape juice Tangerines Grapefruit/grapefruit juice Watermelon Honeydew melon Henok and limes Mangoes Papayas VEGETABLES [place] sprouts Eggplant Duncan peppers Green beans Bamboo shoots (canned) Kale Broccoli (fresh) Lettuce Cabbage Mushrooms (fresh) Carrots Okra Cauliflower Summer squash (cooked) Celery and onions (raw) Osmond Lillian Fruits and Vegetables Higher in Potassium (More than 200 mg*) FRUITS Apricots (fresh) Bananas Cantaloupe Dates Nectarines Kiwi Prunes/prune juice Oranges/orange juice Raisins VEGETABLES [place] and butternut squash Avocado Baked beans Beet and other greens Broccoli (cooked) [place] sprouts (cooked) Chard Chile peppers Mushrooms (cooked) Potatoes Pumpkin Spinach (cooked) Split peas, lentils, beans Sweet potatoes, yams Vegetable juice Tomatoes/tomato juice/tomato sauce *Potassium level is based on one serving. One serving of fruit is one small piece;?? cup fresh, canned, or cooked fruit;?? cup dried fruit; or?? cup juice. One serving of vegetables is?? cup fresh or cooked vegetables, 1 cup raw leafy vegetables, or?? cup juice. For more information, visit www.niddk.nih.gov or call . This content is provided as a service of the National Ava of Diabetes and Digestive and Kidney Diseases (NIDDK), part of the National Institutes of Health. The NIDDK translates and disseminates research findings to increase knowledge and understanding about health and disease among patients, health professionals, and the public. Content produced by the NIDDK is carefully reviewed by [facility] scientists and other experts. [facility] Publication No. 11-7407 Revised January 2011 Call if you feel differently (consistent symptoms of nausea, vomiting, little appeal for food, itching, change in sleep patterns, worsening energy levels, shortness of breath). These are some of the signs of worsening kidney function. We will see you sooner if you are not feeling well. Please call. Lizet Hayward MBA, nude model Kidney Disease Nurse Clinician [facility] Nephrology documented in this encounter Progress Notes * Lizet Hayward RN - 05/06/2024 9:00 AM EST [facility] [address] [place] [address] Reason for Clinic Visit: Systems Review and CKD management. Seen in clinic with: Lizet Hayward RN CKD Nurse Clinician CKD related to: hypertension History of Present Illness: History obtained by RN Specialist: Last seen in clinic 11/06/23 eGFR 21. 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 Patient started taking sevelamer fora couple of days and felt like he was getting an upset stomach from them so he stopped taking them.He is unsure if he should try them again or not. He will be having another endoscopy and ablation in the near future because the cells in his esophagus are pre- cancerous. He is taking Tylenol PM in the evening to help with his pain and he can sleep a little bit better as well. Review of Systems: Sign/Symptom Comments Activity level/fatigue: His activity level is very good. He is very busy. 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 He does feel like the work is catching up with him a little. He has been out hunting and has no issues moving about his property. Change in sleep patterns: Sleep has been pretty good. He will be up more at night if he drinks a lot of water later in the day. Uses CPAP Nocturia: Usually gets up twice but may be more depending on how much he drinks in the evening. First morning urine is double void. Appetite changes: Appetite has been good Food aversions: No Nausea: No Vomiting: No Bowels: Has bowel urgency and diarrhea r/t hiatal hernia surgery. Dr. Gar recommended taking miralax for a month to see if it helped. Then suggested to switch to metamucil - Mathew feels this has been more helpful. Edema: Trace to 1+. Will have swelling at the end of the work day. He has had this for a while. States it used to be worse in the past. Shortness of breath: No Orthopnea/PND: No PND; 1 pillow Muscle Cramping: Cramping depends - he'll have them every night for a few nights in a row and then go a while without. When he stretches his legs when he wakes up he will get cramps in his calves or his thighs Cold intolerance: Yes Itching: Itching hasn't been as much of an issue Bruising/bleeding: Feels he bruises easily; he's had some spots that pop up and he isn't sure why. No bleeding issues. Mental Status Changes: He knows he's not as sharp as he used to be, but there have been no drastic changes. He makes lists to keep track of everything he needs to do. Recent Home Blood Pressure Control: Doesn't check. [...] Vaccination Status: Not documented in record Education: Potassium and phosphorus info sheets given; Phase 1 AAKP booklet given Anticipated Renal Replacement Therapy Plan: Transplant Evaluation: Fistula Date/Type of Initial Access/Surgeon: PMH: No past medical history on file. ALLERGIES: Allergies Allergen Reactions Cephalosporins Itching Morphine Hives MEDICATIONS: Current Outpatient Medications Medication Sig Dispense Refill calciTRIoL (Rocaltrol) 0.5 mcg capsule Take 1 capsule by mouth daily. 90 capsule 3 lisinopriL (Zestril) 20 mg tablet Take 1 tablet by mouth daily. 90 tablet 3 omeprazole (PriLOSEC) [address] capsule Take 1 capsule by mouth 2 times daily. 180 capsule 3 empagliflozin (Jardiance) 10 mg tablet Take 10 mg by mouth daily. ferrous gluconate (Ferate) 324 mg (37.5 mg iron) tablet Take 324 mg by mouth every other day. metoprolol succinate XL (Toprol-XL) 50 mg ER 24 hr tablet Take 50 mg by mouth daily. amLODIPine (Norvasc) 5 mg tablet Take 1 tablet by mouth daily. 90 tablet 3 acetaminophen (Tylenol) 325 mg [...] days total per month) 45 g 3 sevelamer carbonate (Renvela) 800 mg tablet Take 1 tablet by mouth 3 times daily (with meals). 270 tablet 3 No current facility-administered medications for this visit. PHYSICAL EXAM: Vitals: 05/06/24 0859 BP: 150/87 BP Location ([facility]): Left arm Patient Position: Sitting BP Cuff Sizes: Adult (25-34 cm) Pulse: 72 Weight: 68.2 kg (150 lb 6.4 oz) Body mass index is 24.28 kg/m??. General appearance NAD Head Eyes ENT Neck Respiratory CTA COR/Vascular reg Abdomen Skin Neuro Asterixis Extremities Tr-1+ edema Other LABS: Recent Results (from the past 336 hour(s)) Ferritin Collection Time: 04/30/24 12:00 AM Result Value Ref Range Ferritin - External 194 Albumin Level Collection Time: 04/30/24 12:00 AM Result Value Ref Range Albumin - External 3.7 Phosphorus Collection Time: 04/30/24 12:00 AM Result Value Ref Range Phosphorus - External 6.0 Basic Metabolic Panel Non-fasting Collection Time: 04/30/24 12:00 AM Result Value Ref Range Glucose Lvl - External 109 Blood Urea Nitrogen - External 84 Creatinine - External 5.4 EGFR - External 10.7 Sodium - External 139 Potassium - External 5.4 Chloride - External 102 CO2 - External 24.7 Calcium - External 8.6 Anion Gap - External 12.3 Iron and TIBC Collection Time: 04/30/24 12:00 AM Result Value Ref Range Iron - External 56 TIBC - External 298 Iron Saturation - External 19 Protein/Creatinine Ratio, urine Collection Time: 04/30/24 12:00 AM Result Value Ref Range Creatinine, Urine - External 27.87 Protein, Urine Ran - External 141.2 Prot/Cre Ratio - External 5.06 CBC (with Diff) Collection Time: 04/30/24 12:00 AM Result Value Ref Range WBC - External 5.57 RBC - External 3.14 Hemoglobin - External 10.0 Hematocrit - External 30.3 MCV - External 97 MCH - External 31.8 MCHC - External 33.0 RDWCV - External 13.6 Platelets - External 190 MPV - External 10.1 Basic Metabolic Panel Non-fasting Collection Time: 05/06/24 7:57 AM Result Value Ref Range Glucose 98 65 - 199 mg/dL Blood Urea Nitrogen 78 (H) 10 - 20 mg/dL Creatinine 5.30 (H) 0.80 - 1.50 mg/dL Sodium 135 135 - 145 mMol/L Potassium 5.4 (H) 3.5 - 5.0 mMol/L Chloride 99 98 - 107 mMol/L Carbon Dioxide 19 (L) 22 - 31 mMol/L Anion Gap 17 (H) 5 - 15 mMol/L Calcium 8.7 8.5 - 10.5 mg/dL Est Glomerular Filtration Rate - Male 11 mL/min/1.73 m?? Fasting Status No ASSESSMENT AND PLAN: Problem: Chronic Kidney Disease Est Glomerular Filtration Rate Date Value 12/10/2023 13.77 11/06/2023 21 mL/min/1.73 m?? (L) 09/23/2023 18.12 EGFR - External (no units) Date Value 04/30/2024 10.7 Est Glomerular Filtration Rate - Male (mL/min/1.73 m??) Date Value 05/06/2024 11 CKD Stage 4/5 Potassium Date Value Ref Range Status 05/06/2024 5.4 (H) 3.5 - 5.0 mMol/L Final 12/10/2023 5.1 Final 11/06/2023 5.2 (H) 3.5 - 5.0 mmol/L Final Comment: Please note: Patients with WBC >100,000 may have falsely elevated Potassium levels. For accurate Potassium quantification in these patients send serum separator tube (gold top) for subsequent determinations. Contact the Clinical Chemistry Laboratory if there are any questions. 09/23/2023 4.8 Final Potassium - External Date Value Ref Range Status 04/30/2024 5.4 Final Carbon Dioxide Date Value 05/06/2024 19 mMol/L (L) 12/10/2023 19 11/06/2023 21 mmol/L (L) 09/23/2023 23 CO2 - External (no units) Date Value 04/30/2024 24.7 On 1 tsp sodium bicarb daily Uric Acid (mg/dL) Date Value 11/06/2023 7.4 08/30/2023 8.2 Not on allopurinol Standard Recommendations: Reduce rate of progression. Education for CKD stage- specific issues. RN Notes: Your kidney function is doing a little worse this winter than it was in the summertime. Dr. Marrero is not quite sure why this is happening and he is a little concerned that there might be something else going on to cause this decline. Your blood pressures are up a little but this may not be the cause. Dr. Marrero would recommend having a kidney biopsy, which is done with ultrasound guidance to remove a sample of tissue from your kidney to be viewed under a microscope. This would show if there is something happening at a cellular level to cause this change in kidney function. There is a risk of bleeding with the biopsy so you would be observed for about four hours to make sure you do not have any bleeding and you would not be able to lift more than 10 pounds for two weeksafterward. This may not show anything but it is the best chance to determine why your kidney function is declining. Another option is to have an ultrasound of your kidneys to see if there is a blockage somewhere. Ifthere is, given the double voiding you are experiencing, we can refer you to urology to fix any obstructive issues. Sometimes this is enough to fix the problem and create some improvement in your kidney function. Kidney disease is a largely silent disease until it is at a point where you need to act. We would like you to start thinking about different options related to dialysis to see what you would like to do for future planning. You can choose to do dialysis in a center or you can do it at your home. You can also be evaluated for transplant if you would like to do that. MD/WOOD TYPE CUTTER A/P: Cr rising without clear etiology. Proteinuria is also acutely worse. Plan for renal biopsy. Problem: Management of Anemia related to Chronic Kidney Disease (CKD) Hemoglobin (g/dL) Date Value 11/06/2023 10.7 (L) Hemoglobin - External (no units) Date Value 04/30/2024 10.0 Goal: 9.5-10.9 g/dl Ferritin - External (no units) Date Value 04/30/2024 194 Goal: >100ng/ml Iron Saturation (%) Date Value 11/06/2023 30 Iron Saturation - External (no units) Date Value 04/30/2024 19 Goal: >20% YISSEL: No; start date: ; last dose: Drug/Dose/Frequency: Aranesp monthly Where administered (clinic/hospital/home): IV Iron replacement therapy (Venofer), Last dose: RN Notes: No changes - will recheck iron studies at next visit MD/WOOD TYPE CUTTER A/P: no indication for YISSEL therapy at present. Problem: Hypertension BP: (150)/(87) Goal (if urine alb:cr ratio is <30mg/g): </= 140/90 Goal (if urine alb:cr ratio is >30mg/g): </= 130/80 Standard Recommendations: Sodium intake < 2 Gm per day. RN Notes: Your blood pressure is a little elevated in the office today but Dr. Marrero doesn't like to make changes based on one elevated reading, and you did come into this appointment a little nervous about your blood work. Your potassium is a little elevated today. Given the swelling, the elevated potassium and your blood pressure being up, Dr. Marrero would like to have you start a diuretic in the mornings. This will help improve all three of these things. If you have to travel for a distance, take the medication later in the day. If you try it and it isn't bearable with the increase in urination, let us know. MD/WOOD TYPE CUTTER A/P: start furosemide Problem: Proteinuria Protein / Creatinine Ratio, Urine (ratio) Date Value 11/06/2023 2.6 Prot/Cre Ratio - External (no units) Date Value 04/30/2024 5.06 Goal: <0.2mg/mg RN Notes: No changes MD/WOOD TYPE CUTTER A/P: continue lisinopril Problem: Bone and mineral metabolism Vitamin D Total 25 OH (ng/mL) Date Value 11/06/2023 20 (L) 08/30/2023 21 Not on vitamin D Parathyroid Hormone (pg/mL) Date Value 11/06/2023 113 (H) 11/06/2023 113 (H) 08/30/2023 145 (H) On calcitriol 0.25 mcg daily Goal: Stage 3: 35-70 pg/ml Stage 4: 70-110 pg/ml Stage 5: 150-300 pg/ml Phosphorus (mg/dL) Date Value 11/06/2023 4.7 (H) 08/30/2023 3.8 01/21/2023 3.5 Phosphorus - External (no units) Date Value 04/30/2024 6.0 not on sevelamer/calcium carbonate (Tums)/calcium acetate Goal: 2.7-4.6mg/dl Calcium Date Value 05/06/2024 8.7 mg/dL 12/10/2023 8.6 11/06/2023 9.0 mg/dL 09/23/2023 7.9 Calcium - External (no units) Date Value 04/30/2024 8.6 not on calcium carbonate Goal: 8.5-10.5mg/dl RN Notes: Try to take the sevelamer and see if you are able to tolerate it; your phosphorus is elevated and this will help to bring it down. MD/WOOD TYPE CUTTER A/P: start sevelamer Problem: Nutrition Albumin (g/dL) Date Value 11/06/2023 4.1 08/30/2023 4.4 01/21/2023 4.3 Albumin - External (no units) Date Value 04/30/2024 3.7 Goal: >/= 4.0 gm/dl Body mass index is 24.28 kg/m??. Goal: 20-25 kg/m2 RN Notes: Encouraged healthy eating MD/WOOD TYPE CUTTER A/P: Problem: Dyslipidemia No results found for: LDLCHOL Goal: <100 mg/dl No results found for: TRIG Goal: <150 mg/dl not on statin not on ezetimibe RN Notes: No changes MD/WOOD TYPE CUTTER A/P: defer lipid management to PCP Return to CKD clinic: 2 months documented in this encounter Plan of Treatment Upcoming Encounters Date Type Department Care Team (Latest Contact Info) Description 06/19/2024 1:40 PM EST Clinical Support [place] [address] 06/19/2024 2:00 PM EST Office Visit [place] [address] Pepe Horton MD [facility] [place] [address] 08/10/2024 10:00 AM EDT Laboratory Appointment Lab [address] [place] [address] 08/10/2024 11:20 AM EDT Office Visit Nephrology [place] [address] Aurora Marrero MD [facility] [place] [address] A, Nurse Clinician None 08/20/2024 7:30 AM EDT Hospital Encounter Gastroenterology at [place] [id number] Lawrence Gar MD [facility] [place] [address] 08/20/2024 7:30 AM EDT - 08/20/2024 8:15 AM EDT Surgery [place] [id number] Lawrence Gar MD [facility] [place] [address] EGD, UPPER GI ENDOSCOPY (WRVU 2.09) 11/17/2024 4:20 PM EDT Office Visit [place] [address] Lawrence Gar MD [facility] [place] [address] Scheduled Procedures Name Priority Associated Diagnoses Date/Ti me EGD, UPPER GI ENDOSCOPY (WRVU 2.09) Sharma's esophagus with high grade dysplasia 08/20/2024 7:30 AM EDT Scheduled Referrals Name Type Priority Associated Diagnoses Orde r Schedule Referral to Transplant Services Outpatient Referral Routine Acute worsening of stage 4 chronic kidney disease Anemia of chronic renal failure, stage 4 (severe) Hyperparathyroidism due to renal insufficiency Hyperkalemia Primary hypertension Ordered: 05/06/2024 documented as of this encounter Results * US Guided Biopsy Renal (06/02/2024 9:32 AM EST) WORKSTATION ID [id number] RAD Anatomical Region Laterality Modality Neck, C-spine Ultrasound 06/02/2024 9:49 AM EST Impressions 06/02/2024 10:04 AM EST Retroperitoneal Limited Summary Director Of Leadership Development imaging obtained prior to biopsy procedure. [place] Renal Biopsy Summary Ultrasound guidance provided for Dr. Lentz and Blanca of the section of Nephrology. ?? Several biopsies were obtained. Stable post biopsy hematoma measuring 3.2 x 2.1 x 3.2 cm. The patient was sent to the [facility] for followup recovery. I ??viewed the images and agree with the above interpretation. Please see above. Thank you for letting us participate in the care of this patient. If you are a health care provider and have any questions regarding this report, please contact the number above. For patients who have questions, please contact the health healthcare administration intern that requested your imaging first. ?Tam Low, Staff Physician Electronically Signed Final Report ?? 06/02/2024 10:04 am Narrative 06/02/2024 10:04 AM EST Renal ? (Signed Final 06/02/2024 10:04 am) PATIENT INFO: ID #: ? [id number] ?: ??[birth year] (69 yrs)(M) Name: ? MATHEW LINK ?Visit Date: 06/02/2024 09:49 am PERFORMED BY: Attending: ?Devante HENDRICKS, Tam Ziegler Performed By: ? Michael Rust RDMS Referred By: ?AURORA MARRERO Location: ? [place] SERVICE(S) PROVIDED: UGREBX - Renal Biopsy ( [place]) - [id number] INDICATIONS: 69 year old male with worsening of stage 4 CKD and proteinuria. H/o hypertension. COMPARISON: Ultrasound: Renal / Bladder LEFT KIDNEY: Size (cm) ?L: ??9.6 Cortical Thickness: ?Thinning Cortical Echogenicity: ?? Normal Hydronephrosis: ?No sonographic evidence Comment: ?Director Of Leadership Development imaging obtained prior to biopsy ------- BIOPSY: ------- Type: ??[place] [facility] Biopsy # ?Location ?Needle ?Gauge ? Pass ?Doppler 1 ?Left kidney ? 16 cm ? 16 ?2 ?Lower pole Medications: ? See [facility] for documentation Comments: ?[facility] for bedside timeout ?documentation Post Procedure Assessment: ? See [facility] for documentation Procedure Note Tam Low MD - 06/02/2024 Renal (Signed Final 06/02/2024 10:04 am) PATIENT INFO: ID #: [id number] : [birth year] (69 yrs)(M) Name: MATHEW LINK Visit Date: 06/02/2024 09:49 am PERFORMED BY: Attending: Tam Low MD Performed By: Michael Rust RDMS Referred By: AURORA MARRERO Location: [place] SERVICE(S) PROVIDED: [facility] - Renal Biopsy ( [place]) - [id number] INDICATIONS: 69 year old male with worsening of stage 4 CKD and proteinuria. H/o hypertension. COMPARISON: Ultrasound: Renal / Bladder LEFT KIDNEY: Size (cm) L: 9.6 Cortical Thickness: Thinning Cortical Echogenicity: Normal Hydronephrosis: No sonographic evidence Comment: Director Of Leadership Development imaging obtained prior to biopsy ------- BIOPSY: ------- Type: [place] [facility] Biopsy # Location Needle Gauge Pass Doppler 1 Left kidney 16 cm 16 2 Lower pole Medications: See [facility] for documentation Comments: See e- for bedside timeout documentation Post Procedure Assessment: [facility] IMPRESSION Retroperitoneal Limited Summary Director Of Leadership Development imaging obtained prior to biopsy procedure. [place] [facility]al Biopsy Summary Ultrasound guidance provided for Dr. Lentz and Blanca of the section of Nephrology. Several biopsies were obtained. Stable post biopsy hematoma measuring 3.2 x 2.1 x 3.2 cm. The patient was sent to the [facility] for followup recovery. I viewed the images and agree with the above interpretation. Please see above. Thank you for letting us participate in the care of this patient. If you are a health care provider and have any questions regarding this report, please contact the number above. For patients who have questions, please contact the health healthcare administration intern that requested your imaging first. Tam Low, Staff Physician Electronically Signed Final Report 06/02/2024 10:04 am Aurora Marrero MD IMG PROC ORDERABL ES documented in this encounter Visit Diagnoses Diagnosis Acute worsening of stage 4 chronic kidney disease- Primary Anemia of chronic renal failure, stage 4 (severe) Hyperparathyroidism due to renal insufficiency Secondary hyperparathyroidism (of renal origin) Hyperkalemia Hyperpotassemia Primary hypertension Unspecified essential hypertension Acute worsening of stage 4 chronic kidney disease Anemia of chronic renal failure, stage 4 (severe) Hyperparathyroidism due to renal insufficiency Secondary hyperparathyroidism (of renal origin) Hyperkalemia Hyperpotassemia Primary hypertension Unspecified essential hypertension Sharma's esophagus with high grade dysplasia Sharma's esophagus documented in this encounter Care Teams Rinkman Relationship Specialty Start Date End Date Govind Mendes [place] [place] [address] PCP - General Internal Medicine 11/06/23 documented as of this encounter
--- OUTSIDE RECORDS SUMMARY | 2024-06-08 12:45 | XMS_ITS | Encounter Summary ---
[place] [address] Care Team Providers Care Pinking Sewing Machine Operator Name Role Phone Govind Mendes [...] GI ENDOSCOPY (WRVU 2.09) Lawrence Gar MD [facility] [place] [address] [facility] Referral ID Status Reason Start Date Expiration Date Visits Re quested Visits Authorized [id number] 1 1 Encounter Details Date Type Department Care Team (Late st Contact Info) Description 04/06/2024 9:45 AM EST - 04/06/2024 10:15 AM EST [place] [address] Lawrence Gar MD [facility] [place] [address] EGD, TRANSORAL; WITH ABLATION OF TUMOR(S), POLYP(S), OR OTHER LESION(S) (WRVU 4.01) Social History Tobacco Use Types Packs/Day Years [...] Sign Reading Time Taken Comments Blood Pressure 143/80 04/06/2024 9:03 AM EST Pulse 70 04/06/2024 9:03 AM EST Temperature 36.9 ??C (98.4 ??F) 04/06/2024 9:03 AM ES T Respiratory Rate 16 04/06/2024 9:03 AM EST Oxygen Saturation 98% 04/06/2024 9:03 AM EST Inhaled Oxygen Concentration - - [...] the day after the procedure, use an [id number]-[id number] spray to numb your throat. Sucking on [...] occurs, please contact your Doctor. Please call [phone] before 8pm Mon-Fri with problems, questions or concerns. If you call after 8pm or on weekends, call the Hospital at [phone] and ask to speak to the Clinical Transformation Specialist cnc applications engineer and the gas welding machine operator will contact that person for you. When should you call for help? Call [phone] anytime you think you may need emergency [...] After Visit Summary and more online at [email or web address] If you would like to provide feedback about your hospital experience, please call the Office of Patient and Family Relations at . If you have received this After Visit Summary in error, please immediately return it in person to the department, or notify the [facility] Privacy Office by calling toll free at between the hours of 8AM and 5PM to arrange for our retrieval of the documents at no cost to you. Content Version: 12.2 ?? [id number] [employer]. Care instructions adapted under license by [facility]. If you have questions about a medical condition or this instruction, always ask your healthcare professional. [employer] disclaims any warranty or liability for your [...] EST Clinical Support [place] [address] 06/19/2024 2:00 PM EST Office [place] [address] Pepe Horton MD [facility] [place] [address] 08/10/2024 10:00 AM EDT Laboratory Appointment Lab [address] [place] [address] 08/10/2024 11:20 AM EDT Office Visit [place] [address] Jovani Richardson MD [facility] [place] [address] A, Nurse Clinician None 08/20/2024 7:30 AM EDT Hospital En[place] [address] Lawrence Gar MD [facility] [place] [address] 08/20/2024 7:30 AM EDT - 08/20/2024 8:15 AM EDT [place] [address] Lawrence Gar MD [facility] [place] [address] EGD, UPPER GI ENDOSCOPY (WRVU 2.09) 11/17/2024 4:20 PM EDT Office [place] [address] Lawrence Gar MD [facility] [place] [address] Scheduled Orders Name Type Priority Associated Diagnoses [...] high grade dysplasia Upper Gi Endoscopy, Biopsy ([id number]) 04/06/2024 10:58 AM EST Sharma's esophagus with high grade dysplasia Edg Flexible Transoral Ablate Tumor Polyp/Lesion W/Dilation & Wire ([id number]) 04/06/2024 10:58 AM EST Sharma's esophagus with high grade dysplasia UPPER GI ENDOSCOPY Routine 04/06/2024 10 :43 AM EST documented in this encounter Results * Surgical Pathology (04/06/2024 11:13 AM EST) Case Report Surgical Pathology Report ? Case: [id number] ? Authorizing Provider: ??Lawrence Gar MD ? Collected: ? 04/06/2024 1113 ? Ordering Location: ? Gastroenterology at [facility] ?? Received: ?04/06/2024 1233 ? Pathologist: ? Khoi Morfin MD ? Specimen: ?Stomach, gastric biospies ? 04/16/2024 10:24 AM [facility] Report Update History x 04/16/2024 10:24 AM [facility] Final Diagnosis A. Stomach, gastric biospies Biopsy: - Antrum-type mucosa with reactive gastropathy and intestinal metaplasia - Body/fundic-type mucosa, negative for diagnostic abnormality. 04/16/2024 10:24 AM [facility] Clinical Information A. Stomach, gastric biospies Rule out Helicobacter pylori 69 yo male, hx of gastric ulcer 04/16/2024 10:24 AM EST [facility] Gross Description A. Stomach, gastric biospies. A - Labeled/Fixative: Stomach gastric biopsies, formalin. Quantity/Size: Six, ranging from 0.2 cm to 0.4 cm. Tissue Description: Soft, mario-brown tissues. Sections/Processin g: Submitted in toto in 2 cassettes labeled A1-A2. CAK 04/16/2024 10:24 AM EST [facility] Result Note Routine 04/16/2024 10:24 AM EST [facility] Tissue STOMACH STRUCTURE / Unknown 04/06/2024 11:13 AM EST 04/06/2024 12:33 PM EST Comment:69 yo male, hx of ga stric ulcer Lawrence Gar MD PATHOLOGY/CYTOLOGY O RDERAXIN [facility] [place] [address] * UPPER GI ENDOSCOPY (04/06/2024 10:43 AM EST) UPPER GI ENDOSCOPY [facility] Endoscopy ___ Procedure Date: 04/06/2024 10:43 AM ? Patient Name: Mathew Mendez ? Date of : 1955 ? Age: 69 ? Order #: [id number] ? Instrument Name: [id number] ? ___ Procedure: ? Upper GI endoscopy Indications: ? Follow-up of previous ? radiofrequency ablation treatment ? of Sharma's esophagus, hx HGD Providers: ? Lawrence Gar MD, Natasha [place]field ? Julianna Taveras, ? Gyro Mechanic, Cecelia Landers MD: ?Govind Haddad: ? Monitored [...] classified as ? Sharma's stage C0-M1 per Atlantic criteria. These ? changes involved the mucosa [...] classified as Sharma's stage C0-M1 ? per [facility] criteria (minimal ? residual Sharma's). Treated with [...] [facility] Performing Organization Address City/State/[facility] Co de Phone Number [employer]OVATION documented in this encounter Visit Diagnoses Diagnosis Sharma's esophagus with high grade dysplasia- Primary Sharma's esophagus Sharma's esophagus with high grade dysplasia Sharma's esophagus Sharma's esophagus with high grade dysplasia Sharma's esophagus documented in this encounter Active and Recently Administered Medications Care Teams Pinking Sewing Machine Operator Relationship Specialty Start Date End Date [place]ind [place] [place] [address] PCP - General Internal Medicine 11/06/23 documented as of this encounter
--- OUTSIDE RECORDS SUMMARY | 2024-06-08 12:45 | XMS_ITS | Encounter Summary ---
Author Organization [facility] Address [facility] [place] [address] Care Team Providers Care Executive Housekeeper Name Role Phone Govind Mendes Primary Care Provider + Encounter Details Date Type Department Care Team (Latest Contact Info) Description 05/31/2024 Travel Social History Tobacco Use Types Packs/Day [...] EST Clinical Support [place] [address] 06/19/2024 2:00 PM EST Office Visit [place] [address] Pepe Horton MD [facility] [place] [address] 08/10/2024 10:00 AM EDT Laboratory Appointment Lab [address] [place] [phone] 08/10/2024 11:20 AM EDT Office Visit Nephrology Hypertension at [place] [address] Jovani Richardson MD [facility] [place] [address] A, Nurse Clinician None 08/20/2024 7:30 AM EDT Hospital Encounter Gastroenterology at [place] [address] Lawrence Gar MD [facility] [place] [address] 08/20/2024 7:30 AM EDT - 08/20/2024 8:15 AM EDT Surgery Gastroenterology at [place] [address] Lawrence Gar MD [facility] [place] [address] EGD, UPPER GI ENDOSCOPY (WRVU 2.09) 11/17/2024 4:20 PM EDT Office Visit Gastroenterology at [place] [address] Lawrence Gar MD [facility] [place] [address] Scheduled Procedures Name Priority Associated Diagnoses Date/Ti me EGD, UPPER GI ENDOSCOPY (WRVU 2.09) Sharma's esophagus with high grade dysplasia 08/20/2024 7:30 AM EDT documented as of this encounter Visit Diagnoses Not on filedocumented in this encounter Care Teams Executive Housekeeper Relationship Specialty Start Date End [place] [address] PCP - General Internal Medicine 11/06/23 documented as of this encounter
--- OUTSIDE RECORDS SUMMARY | 2024-06-08 12:45 | XMS_ITS | Encounter Summary ---
Author Organization [facility] Address [facility] [place] [address] Care Team Providers Care Lock Plater Name Role Phone Govind Mendes Primary Care Provider + Encounter Details Date Type Department Care Team (Latest Contact Info) Description 05/06/2024 Travel Social History Tobacco Use Types Packs/Day [...] EST Clinical Support [place] [address] 06/19/2024 2:00 PM EST Office Visit [place] [address] Pepe Horton MD [facility] [place] [address] 08/10/2024 10:00 AM EDT Laboratory Appointment Lab [address] [place] [phone] 08/10/2024 11:20 AM EDT Office Visit Nephrology Hypertension at [place] [address] Jovani Richardson MD [facility] [place] [address] A, Nurse Clinician None 08/20/2024 7:30 AM EDT Hospital Encounter Gastroenterology at [place] [address] Lawrence Gar MD [facility] [place] [address] 08/20/2024 7:30 AM EDT - 08/20/2024 8:15 AM EDT Surgery Gastroenterology at [place] [address] Lawrence Gar MD [facility] [place] [address] EGD, UPPER GI ENDOSCOPY (WRVU 2.09) 11/17/2024 4:20 PM EDT Office Visit Gastroenterology at [place] [address] Lawrence Gar MD [facility] [place] [address] Scheduled Procedures Name Priority Associated Diagnoses Date/Ti me EGD, UPPER GI ENDOSCOPY (WRVU 2.09) Sharma's esophagus with high grade dysplasia 08/20/2024 7:30 AM EDT documented as of this encounter Visit Diagnoses Not on filedocumented in this encounter Care Teams Lock Plater Relationship Specialty Start Date End [place] [address] PCP - General Internal Medicine 11/06/23 documented as of this encounter
--- OUTSIDE RECORDS SUMMARY | 2024-06-08 12:45 | XMS_ITS | Encounter Summary ---
[place] [address] Care Team Providers Care Sling Operator Name Role Phone Govind Mendes Primary Care Provider + Reason for Visit * Auth/Cert (Routine) Specialty Diagnoses / Procedures Referred By Devaughn bobo Referred To Contact Diagnoses Stage 4 CKD Procedures POST PROCEDURE RECOVERY Alvarez Lentz MD [facility] [place] [address] [facility] Referral ID Status Reason Start Date Expiration Date Visits Re quested Visits Authorized [id number] 1 1 Encounter Details Date Type Department Care Team (Latest Contact Info) Description 06/02/2024 8:16 AM EST - 06/02/2024 9:44 AM EST Hospital En[place] [address] Jovani Richardson MD [facility] [place] [address] Acute worsening of stage 4 chronic kidney disease; Anemia of chronic renal failure, stage 4 (severe); Hyperparathyroidism due to renal insufficiency; Hyperkalemia; Primary hypertension Discharge Disposition: Home Social History Tobacco Use [...] Sign Reading Time Taken Comments Blood Pressure 154/92 06/02/2024 8:00 AM EST Pulse 91 06/02/2024 8:00 AM EST Temperature - - Respiratory Rate 16 06/02/2024 8:00 AM EST Oxygen Saturation - - Inhaled Oxygen Concentration [...] 3 08/11/2020 documented as of this encounter Plan of Treatment Upcoming Encounters Date Type Department Care Team (Latest Contact Info) Description 06/19/2024 1:40 PM EST Clinical Support Solid Organ Transplant at [place] [phone] 06/19/2024 2:00 PM EST Office Visit Solid Organ Transplant at [place] [address] Pepe Horton MD [facility] [place] [address] 08/10/2024 10:00 AM EDT Laboratory Appointment Lab [address] [address] 08/10/2024 11:20 AM EDT Office Visit Nephrology Hypertension at [place] [address] Jovani Richardson MD [facility] [place] [address] A, Nurse Clinician None 08/20/2024 7:30 AM EDT Hospital Encounter Gastroenterology at [place] [address] Lawrence Gar MD [facility] [place] [address] 08/20/2024 7:30 AM EDT - 08/20/2024 8:15 AM EDT Surgery Gastroenterology at [place] [address] Lawrence Gar MD [facility] [place] [address] EGD, UPPER GI ENDOSCOPY (WRVU 2.09) 11/17/2024 4:20 PM EDT Office Visit Gastroenterology at [place] [phone] Lawrence Gar MD [facility] [place] [address] Pending Results Name Type Priority Associated Diagnoses Date /Time Surgical Pathology Pathology/Cytol ogy Routine Acute worsening of stage 4 chronic kidney disease Anemia of chronic renal failure, stage 4 (severe) Hyperparathyroidism due to renal insufficiency Hyperkalemia Primary hypertension 06/02/2024 9:33 AM EST Scheduled Orders Name Type Priority Associated Diagnoses Orde r Schedule Surgical Pathology Pathology/Cyto logy Routine Acute worsening of stage 4 chronic kidney disease Anemia of chronic renal failure, stage 4 (severe) Hyperparathyroidism due to renal insufficiency Hyperkalemia Primary hypertension Release Upon Ordering for 1 Occurrences starting 06/02/2024, 1 completed Scheduled Procedures Name Priority Associated Diagnoses Date/Ti me EGD, UPPER GI ENDOSCOPY (WRVU 2.09) Sharma's esophagus with high grade dysplasia 08/20/2024 7:30 AM EDT documented as of this encounter Procedures Procedure Name Priority Date/Time Associated Diagnosis Comments US GUIDED BIOPSY RENAL Routine 06/02/2024 9:32 AM EST Acute worsening of stage 4 chronic kidney disease Anemia of chronic renal failure, stage 4 (severe) Hyperparathyroidism due to renal insufficiency Hyperkalemia Primary hypertension documented in this encounter Results * US Guided Biopsy Renal (06/02/2024 9:32 AM EST) WORKSTATION ID [id number] RAD Anatomical Region Laterality Modality Neck, C-spine Ultrasound 06/02/2024 9:49 AM EST Impressions 06/02/2024 10:04 AM EST Retroperitoneal Limited Summary Bench Worker imaging obtained prior to biopsy procedure. Morongo Renal Biopsy Summary Ultrasound guidance provided for Dr. Lentz and Blanca of the section of Nephrology. ?? Several biopsies were obtained. Stable post biopsy hematoma measuring 3.2 x 2.1 x 3.2 cm. The patient was sent to the [facility] for followup recovery. I ??viewed the images and agree with the above interpretation. Please see above. Thank you for letting us participate in the care of this patient. If you are a health care provider and have any questions regarding this report, please contact the number above. For patients who have questions, please contact the health acute care physician that requested your imaging first. ?Tam Low, Staff Physician Electronically Signed Final Report ?? 06/02/2024 10:04 am Narrative 06/02/2024 10:04 AM EST Renal ? (Signed Final 06/02/2024 10:04 am) PATIENT INFO: ID #: ? [id number] ?: ??[birth year] (69 yrs)(M) Name: ? MATHEW LINK ?Visit Date: 06/02/2024 09:49 am PERFORMED BY: Attending: ?Devante HENDRICKS, Tam Ziegler Performed By: ? Michael Rust RDMS Referred By: ?[facility] Location: ? [place] SERVICE(S) PROVIDED: UGREBX - Renal Biopsy ( [place]ongo) - [id number] INDICATIONS: 69 year old male with worsening of stage 4 CKD and proteinuria. H/o hypertension. COMPARISON: Ultrasound: Renal / Bladder LEFT KIDNEY: Size (cm) ?L: ??9.6 Cortical Thickness: ?Thinning Cortical Echogenicity: ?? Normal Hydronephrosis: ?No sonographic evidence Comment: ?Bench Worker imaging obtained prior to biopsy ------- BIOPSY: ------- Type: ??Morongo Kidney Biopsy # ?Location ?Needle ?Gauge ? Pass ?Doppler 1 ?Left kidney ? 16 cm ? 16 ?2 ?Lower pole Medications: ? [facility] for documentation Comments: ?See e- for bedside timeout ?documentation Post Procedure Assessment: ? [facility] Procedure Note Tam Low MD - 06/02/2024 Renal (Signed Final 06/02/2024 10:04 am) PATIENT INFO: ID #: [id number] : [birth year] (69 yrs)(M) Name: MATHEW LINK Visit Date: 06/02/2024 09:49 am PERFORMED BY: Attending: Tam Low MD Performed By: Michael Rust RDMS Referred By: JOVANI RICHARDSON Location: [place] SERVICE(S) PROVIDED: UGREBX - Renal Biopsy ( [place]) - [id number] INDICATIONS: 69 year old male with worsening of stage 4 CKD and proteinuria. H/o hypertension. COMPARISON: Ultrasound: Renal / Bladder LEFT KIDNEY: Size (cm) L: 9.6 Cortical Thickness: Thinning Cortical Echogenicity: Normal Hydronephrosis: No sonographic evidence Comment: Bench Worker imaging obtained prior to biopsy ------- BIOPSY: ------- Type: [place] Kidney Biopsy # Location Needle Gauge Pass Doppler 1 Left kidney 16 cm 16 2 Lower pole Medications: See [facility] for documentation Comments: See [facility] for bedside timeout documentation Post Procedure Assessment: See [facility] for documentation IMPRESSION Retroperitoneal Limited Summary Bench Worker imaging obtained prior to biopsy procedure. [place] Renal Biopsy Summary Ultrasound guidance provided for Dr. Lentz and Blanca of the section of Nephrology. Several biopsies were obtained. Stable post biopsy hematoma measuring 3.2 x 2.1 x 3.2 cm. The patient was sent to the [facility] for followup recovery. I viewed the images and agree with the above interpretation. Please see above. Thank you for letting us participate in the care of this patient. If you are a health care provider and have any questions regarding this report, please contact the number above. For patients who have questions, please contact the health acute care physician that requested your imaging first. Tam Low, Staff Physician Electronically Signed Final Report 06/02/2024 10:04 am [facility] PROC ORDERABL ES documented in this encounter Visit Diagnoses Diagnosis Acute worsening of stage 4 chronic kidney disease Anemia of chronic renal failure, stage 4 (severe) Hyperparathyroidism due to renal insufficiency Secondary hyperparathyroidism (of renal origin) Hyperkalemia Hyperpotassemia Primary hypertension Unspecified essential hypertension Sharma's esophagus with high grade dysplasia Sharma's esophagus documented in this encounter Care Teams Sling Operator Relationship Specialty Start Date End Date Govind [place] [address] PCP - General Internal Medicine 11/06/23 documented as of this encounter
--- OUTSIDE RECORDS SUMMARY | 2024-06-08 12:45 | XMS_ITS | Encounter Summary ---
Author Organization [facility] [place] [address] Care Team Providers Care Salad Bar Clerk Name Role Phone Govind Mendes Primary Care Provider + Encounter Details Date Type Department Care Team (Late st Contact Info) Description 05/19/2024 Orders Only Neph[place] [phone] Lizet Hayward RN Social History Tobacco Use [...] EST Clinical Support [place] [phone] 06/19/2024 2:00 PM EST Office Visit [place] [phone] Pepe Horton MD [facility] [place] [address] 08/10/2024 10:00 AM EDT Laboratory Appointment Lab [address] [place] [address] 08/10/2024 11:20 AM EDT Office Visit Nephrology Hypertension at [place] [address] Jovani Richardson MD [facility] [place] [address] A, Nurse Clinician None 08/20/2024 7:30 AM EDT Hospital Encounter Gastroenterology at [place] [address] Lawrence Gar MD [facility] [place] [address] 08/20/2024 7:30 AM EDT - 08/20/2024 8:15 AM EDT Surgery Gastroenterology at [place] [address] Lawrence Gar MD [facility] [place] [address] EGD, UPPER GI ENDOSCOPY (WRVU 2.09) 11/17/2024 4:20 PM EDT Office Visit Gastroenterology at [place] [address] Lawrence Gar MD [facility] [place] [address] Scheduled Procedures Name Priority Associated Diagnoses Date/Ti me EGD, UPPER GI ENDOSCOPY (WRVU 2.09) Sharma's esophagus with high grade dysplasia 08/20/2024 7:30 AM EDT documented as of this encounter Visit Diagnoses Not on filedocumented in this encounter Care Teams Salad Bar Clerk Relationship Specialty Start Date End Date Govind Mendes [place] [facility] [place] [address] PCP - General Internal Medicine 11/06/23 documented as of this encounter
--- OUTSIDE RECORDS SUMMARY | 2024-06-08 12:45 | XMS_ITS | Encounter Summary ---
[place] [address] Care Team Providers Care Regional Transportation Manager Name Role Phone Govind Mendes Primary Care Provider + Encounter Details Date Type Department Care Team (Late st Contact Info) Description 05/05/2024 Telephone [place] [phone] Lizet Hayward RN Social History Tobacco Use [...] Telephone Encounter - Lizet Hayward RN - 05/05/2024 9:20 AM EST S/O: RN called patient to follow up on labs from last week. Patient has had two doses of ibuprofen in the last month. He has been trying to stay hydrated and is getting up more frequently in the night to urinate because he is drinking so much water. He has not experienced any change in uremic symptoms. P: Patient will come early tomorrow for his clinic appointment to have labs drawn. RN pended lab orders for MD orantes. documented in this encounter Plan of Treatment Upcoming Encounters Date Type Department Care Team (Latest Contact Info) Description 06/19/2024 1:40 PM EST Clinical Support Solid Organ Transplant at [place] [phone] 06/19/2024 2:00 PM EST Office Visit Solid Organ Transplant at [place] [address] Pepe Horton MD [facility] [place] [address] 08/10/2024 10:00 AM EDT Laboratory Appointment Lab [address] [address] 08/10/2024 11:20 AM EDT Office Visit Nephrology Hypertension at [place] [address] Jovani Richardson MD [facility] [place] [address] A, Nurse Clinician None 08/20/2024 7:30 AM EDT Hospital Encounter Gastroenterology at [place] [address] Lawrence Gar MD [facility] [place] [address] 08/20/2024 7:30 AM EDT - 08/20/2024 8:15 AM EDT Surgery Gastroenterology at [place] [address] Lawrence Gar MD [facility] [place] [address] EGD, UPPER GI ENDOSCOPY (WRVU 2.09) 11/17/2024 4:20 PM EDT Office [place] [address] Lawrence Gar MD [facility] [address] Scheduled Procedures Name Priority Associated Diagnoses Date/Ti me EGD, UPPER GI ENDOSCOPY (WRVU 2.09) Sharma's esophagus with high grade dysplasia 08/20/2024 7:30 AM EDT documented as of this encounter Visit Diagnoses Not on filedocumented in this encounter Care Teams Regional Transportation Manager Relationship Specialty Start Date End Date Govind Mendes PA [facility] [place] [address] PCP - General Internal Medicine 11/06/23 documented as of this encounter
--- OUTSIDE RECORDS SUMMARY | 2024-06-08 12:45 | XMS_ITS | Encounter Summary ---
Author Organization [facility] [place] [address] Care Team Providers Care Hand Singer Name Role Phone Govind Mendes Primary Care Provider + Encounter Details Date Type Department Care Team (Late st Contact Info) Description 05/08/2024 Abstract [place] [address] Zaynab Briceno Social History Tobacco Use Types Packs/Day Years [...] EST Clinical Support [place] [address] 06/19/2024 2:00 PM EST Office [place] [phone] Pepe Horton MD [facility] [place] [address] 08/10/2024 10:00 AM EDT Laboratory Appointment Lab [address] [place] [address] 08/10/2024 11:20 AM EDT Office Visit Nephrology Hypertension at [place] [address] Jovani Richardson MD [facility] [place] [address] A, Nurse Clinician None 08/20/2024 7:30 AM EDT Hospital Encounter Gastroenterology at [place] [address] Lawrence Gar MD [facility] [place] [address] 08/20/2024 7:30 AM EDT - 08/20/2024 8:15 AM EDT Surgery Gastroenterology at [place] [address] Lawrence Gar MD [facility] [place] [address] EGD, UPPER GI ENDOSCOPY (WRVU 2.09) 11/17/2024 4:20 PM EDT Office Visit Gastroenterology at [place] [address] Lawrence Gar MD [facility] [place] [address] Scheduled Procedures Name Priority Associated Diagnoses Date/Ti me EGD, UPPER GI ENDOSCOPY (WRVU 2.09) Sharma's esophagus with high grade dysplasia 08/20/2024 7:30 AM EDT documented as of this encounter Visit Diagnoses Not on filedocumented in this encounter Care Teams Hand Singer Relationship Specialty Start Date End Date Govind Mend[place] [address] PCP - General Internal Medicine 11/06/23 documented as of this encounter
--- OUTSIDE RECORDS SUMMARY | 2024-06-08 12:45 | XMS_ITS | Encounter Summary ---
[place] [address] Care Team Providers Care Suit Attendant Name Role Phone Govind Mendes Primary Care Provider + Encounter Details Date Type Department Care Team (Late st Contact Info) Description 05/25/2024 Telephone [place] [address] Cristin Perez RN Social History Tobacco Use Types Packs/Day [...] encounter Miscellaneous Notes * Telephone Encounter - Cristin Perez RN - 05/25/2024 2:03 PM EST I contacted Mathew Mendez to get a brief history prior to scheduling for kidney transplant evaluation. Demographics, medical and surgical history, and current substance use confirmed. Cause of Kidney Disease, as patient understands: Hypertension Per referring provider: Debra Have you had a kidney biopsy: No Where? SCHEDULED 06/02/23 Is ARMANDO Vicente you current PCP? Yes Have you had a recent physical? Yes; summer 2023. Has a f/u on 05/28/23 [facility] No past medical history on file. Past Surgical History: Procedure Laterality Date PRO COLONOSCOPY, REMV LESN, SNARE N/A 10/20/2020 COLONOSCOPY, POLYPECTOMY, REMOVAL LESION BY SNARE (WRVU 4.67) performed by Lawrence Gar MD at [facility] ENDOSCOPY PRO COLONOSCOPY, REMV LESN, SNARE N/A 11/12/2023 COLONOSCOPY, POLYPECTOMY, REMOVAL LESION BY SNARE (WRVU 4.57) performed by Lawrence Gar MD at [facility] ENDOSCOPY PRO EDG FLEXIBLE TRANSORAL ABLATE TUMOR POLYP/LESION W/DILATION & WIRE N/A 04/06/2024 EGD, TRANSORAL; WITH ABLATION OF TUMOR(S), POLYP(S), OR OTHER LESION(S) (WRVU 4.01) performed by Lawrence Gar MD at [facility] ENDOSCOPY PRO ESOPHAGOSCOPY FLEXIBLE TRANSORAL LESION ABLATION N/A 01/02/2024 EGD,WITH ABLATION OF TUMOR OR OTHER LESION (WRVU 3.49) performed by Lawrence Gar MD at [facility] ENDOSCOPY PRO UPPER GI ENDOSCOPY, BIOPSY N/A 10/20/2020 EGD WITH BIOPSY (WRVU 2.49) performed by Lawrence Gar MD at [facility] ENDOSCOPY PRO UPPER GI ENDOSCOPY, BIOPSY N/A 11/12/2023 EGD WITH BIOPSY (WRVU 2.39) performed by Lawrence Gar MD at [facility] ENDOSCOPY PRO UPPER GI ENDOSCOPY, BIOPSY N/A 04/06/2024 EGD WITH BIOPSY (WRVU 2.39) performed by Lawrence Gar MD at [facility] ENDOSCOPY Dialysis: (Not currently on dialysis) If not on dialysis: eGFR 11 Date: 05/11/24 Height: 5'6 Weight: 150lb BMI: 24.21 Do you currently use oxygen? No Have you had any falls over the last 6 months? No Are you able to walk up a flight of stairs, unassisted? Yes Do you see a dentist regularly? Yes If no, when was the last time you were seen? 6 months ago/ Do you have any dental issues? No Have you ever been in counseling or received psychiatric treatment? Yes Sought help when actively drinking; went to and counseling Social History Tobacco Use Smoking Status Never Smokeless Tobacco Never Tobacco Comments denies vaping Social History Substance and Sexual Activity Drug Use Never Does your current income meet your monthly needs? Yes If no, are you able to afford your medications? Yes Immunization History Administered Date(s) Administered Covid-19 (Pfizer Comirnaty) 12yrs+ (2331-3091) 03/15/2023, 02/18/2024 Covid-19 Bivalent (Pfizer Comirnaty) 12yrs+ (3767-3229) 04/03/2022 Covid-19 Monovalent (Pfizer Comirnaty purple cap) 12yrs+ (0749-8983) 07/25/2020, 08/16/2020, 03/13/2021 Td Adult (Decavac, Tenivac) 05/31/2006, 08/20/2016 Td Adult (not absorbed) 05/31/2006 Tdap (Adacel, Boostrix) 08/20/2016 Zoster LIVE (Zostavax) 04/15/2018, 06/24/2018 Have you received the COVID primary series? Yes Have you received the most recent COVID Booster? Yes If no, advise patient of program requirement. Are you listed or are you being evaluated at another program? No (As an FYI - Patient can be listedat multiple centers) If yes, request/review records for evaluation testing already completed. What other hospitals have you received care at? JANI, AAMIR Knee surgery [place]. 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 He is gone for 1.5 months starting in June. He will return on 08/09 and has a f/u with Dr. Richardson on 08/10 Disposition: Schedule with and deepika. documented in this encounter Plan of Treatment Upcoming Encounters Date Type Department Care Team (Latest Contact Info) Description 06/19/2024 1:40 PM EST Clinical Support [place] [address] 06/19/2024 2:00 PM EST Office Visit [place] [phone] Pepe Horton MD [facility] [place] [address] 08/10/2024 10:00 AM EDT Laboratory Appointment Lab [address] [phone] 08/10/2024 11:20 AM EDT Office Visit Nephrology Hypertension at [place] [phone] Jovani Richardson MD [facility] [place] [address] A, Nurse Clinician None 08/20/2024 7:30 AM EDT Hospital Encounter Gastroenterology at [place] [phone] Lawrence Gar MD [facility] [place] [address] 08/20/2024 7:30 AM EDT - 08/20/2024 8:15 AM EDT Surgery Gastroenterology at [place] [phone] Lawrence Gar MD [facility] [place] [address] EGD, UPPER GI ENDOSCOPY (WRVU 2.09) 11/17/2024 4:20 PM EDT Office [place] [address] Lawrence Gar MD [facility] [place] [address] Scheduled Procedures Name Priority Associated Diagnoses Date/Ti me EGD, UPPER GI ENDOSCOPY (WRVU 2.09) Sharma's esophagus with high grade dysplasia 08/20/2024 7:30 AM EDT documented as of this encounter Visit Diagnoses Not on filedocumented in this encounter Care Teams Suit Attendant Relationship Specialty Start Date End [place] [address] PCP - General Internal Medicine 11/06/23 documented as of this encounter
--- OUTSIDE RECORDS SUMMARY | 2024-06-08 12:45 | XMS_ITS | Encounter Summary ---
[place] [address] Care Team Providers Care Laboratory Technologist Name Role Phone Govind Mendes Primary Care [...] GI ENDOSCOPY (WRVU 2.09) Lawrence Gar MD [facility] [place] [address] [facility] Referral ID Status Reason Start Date Expiration Date Visits Re quested Visits Authorized [id number] 1 1 Encounter Details Date Type Department Care Team (Late st Contact Info) Description 04/06/2024 10:57 AM EST Anesthesia [place] [address] [facility] [place] [address] Anesthesia Record Procedure Summary Procedure Name Responsible Anesthesiologist Anesthesia Start Time Anesthesia Stop Time EGD, TRANSORAL; WITH ABLATION OF TUMOR(S), POLYP(S), OR OTHER LESION(S) (WRVU 4.01) (Trunk) Valeria Carpenter MD 04/06/24 1057 04/06/24 1124 Events Date Time Event Comment 04/06/2024 0935 1057 AN Verify 1057 Start 1057 An Start Data 1101 An Induction 1103 Anesthesia Ready 1123 an stop data 1124 Recovery or ICU Handoff Tawana ent care was transferred to the destination unit staff after review of the patient's medical history, current anesthetic/surgical status and plan, according to the Provider Handoff Checklist. 1124 Stop Meds Name Total propofoL 100 mg propofol INF 247 mg dexmedeTOMIDine 4 mcg/mL 12 mcg * Agents Name O2 Air N2O O2 Auxiliary Flowmeter 1 * Blood No blood administrations on file. Lines, Drains, and Airways Type Details Placement Removal PIV 04/06/24; 0908; 22 g auge; cephalic vein (lateral side of arm), right; JCox; distraction 04/06/24 0908 by Dinora Muhammad RN documented in this encounter Social History [...] OR Notes * Anesthesia Postprocedure Evaluation - Valeria Carpenter MD - 04/06/2024 11:55 AM EST Department of Anesthesiology Post-procedure Note Patient: Mathew Mendez Procedure Summary Date: 04/06/24 Room / Location: [facility] 2 / [facility] Anesthesia Start: 1057 Anesthesia Stop: 1124 Procedures: EGD, TRANSORAL; WITH ABLATION OF TUMOR(S), POLYP(S), OR OTHER LESION(S) (WRVU 4.01) (Trunk) EGD WITH BIOPSY (WRVU 2.39) (Trunk) Diagnosis: Sharma's esophagus with high grade dysplasia (F/up Sharma's ablation) Surgeons: Lawrence Gar MD Responsible Provider: Valeria Carpenter MD Anesthesia Type: MAC ASA Status: 3 All Anesthesia Providers: Anesthesiologist: Valeria Carpenter MD THEORETICAL PHYSICIST: Lisha Reyna CRNA Vitals Value Taken Time BP 138/85 04/06/24 1150 Temp Pulse Resp 18 04/06/24 1130 SpO2 96 % 04/06/24 1155 Pain Level 0 04/06/24 1130 Vitals shown include unfiled device data. Patient Location: PACU/[facility] Level of Consciousness: Awake and Alert Pain Management: Satisfactory Analgesia PONV: None Cardiovascular Status: At Baseline and Hemodynamically Stable Respiratory Status: At Baseline and Room Air Postoperative Fluid Status: Intravascular EUvolemia Possible Anesthetic Complications: NONE apparent at time of evaluation Final Primary Anesthesia Type: MAC (The anesthetic type performed was the same as planned.) Comments: VALERIA CARPENTER MD * Anesthesia Preprocedure Evaluation - Valeria Carpenter MD - 04/06/2024 9:15 AM EST Pre-Anesthesia Evaluation for: Mathew Mendez a 69 y.o. male. Procedure(s): EGD, UPPER GI ENDOSCOPY (WRVU 2.09) Patient Active Problem List Diagnosis Date [...] 4.67) performed by Lawrence Gar MD at [facility] ??? PRO COLONOSCOPY, REMV LESN, SNARE N/A 11/12/2023 COLONOSCOPY, POLYPECTOMY, REMOVAL LESION BY SNARE (WRVU 4.57) performed by Lawrence Gar MD at [facility] ??? PRO ESOPHAGOSCOPY FLEXIBLE TRANSORAL LESION ABLATION N/A 01/02/2024 EGD,WITH ABLATION OF TUMOR OR OTHER LESION (WRVU 3.49) performed by Lawrence Gar MD at [facility] ??? PRO UPPER GI ENDOSCOPY, BIOPSY N/A 10/20/2020 EGD WITH BIOPSY (WRVU 2.49) performed by Lawrence Gar MD at [facility] ??? PRO UPPER GI ENDOSCOPY, BIOPSY N/A 11/12/2023 EGD WITH BIOPSY (WRVU 2.39) performed by Lawrence Gar MD at [facility] Social History Tobacco Use ??? [...] Physical Exam: Preprocedure Vitals Current as of 04/06/24 0915 BP: 143/80 Pulse: 70 Resp: 16 SpO2: 98 Temp: 36.9 ??C (98.4 ??F) Height: Weight: BMI: IBW: Last edited 04/06/24902 by ES Airway Assessment: Mallampati: II TM distance: >3 FB Neck ROM: full Cardiovascular Assessment: Rhythm: regular Rate: normal Pulmonary Assessment: unlabored breathing Dental Assessment: - normal exam Misc Assessment: IV access: Peripheral line Last Filed Perioperative Cognitive Screening None Anesthesia Plan: ASA 3 MAC, with a(n) intravenous induction 69 y/o male for f/u EGD s/p Sharma's ablation in December. PMH of TERE, GERD, pancreatitis, HTN, HLD,CKD, hx of alcohol abuse. No issues with anesthesia. NPO. Propofol, std monitors. Region - Other Informed Consent: Anesthetic plan and risks discussed with patient and spouse. Anesthesia Screening documented in this encounter Plan of Treatment Upcoming Encounters Date Type Department Care Team (Latest Contact Info) Description 06/19/2024 1:40 PM EST Clinical Support [place] [address] 06/19/2024 2:00 PM EST Office Visit [place] [address] [facility] [place] [address] 08/10/2024 10:00 AM EDT Laboratory Appointment Lab [address] [place] [address] 08/10/2024 11:20 AM EDT Office Visit Nephrology Hypertension at [place] [address] [facility] [place] [address] A, Nurse Clinician None 08/20/2024 7:30 AM EDT Hospital Encounter Gastroenterology at [place] [address] [facility] [place] [address] 08/20/2024 7:30 AM EDT - 08/20/2024 8:15 AM EDT Surgery Gastroenterology at [place] [address] [facility] [place] [address] EGD, UPPER GI ENDOSCOPY (WRVU 2.09) 11/17/2024 4:20 PM EDT Office Visit Gastroenterology at [place] [address] [facility] [place] [address] Scheduled Procedures Name Priority Associated Diagnoses Date/Ti me EGD, UPPER GI ENDOSCOPY (WRVU 2.09) Sharma's esophagus with high grade dysplasia 08/20/2024 7:30 AM EDT documented as of this encounter Visit Diagnoses Not on filedocumented in this encounter Administered Medications Inactive Administered Medications - up to 3 most recent administrations Medication Order MAR Action Action Date Dose Rate Site dexmedeTOMIDine (Precedex) (4 mcg/mL) bolus injection (Anesthsia) Intravenous, PRN, Starting on Sat04/06/24 at 1116, Until Sat04/06/24 at 1124, Anesthesia Intra-op, Routine Given 04/06/2024 11:20 AM EST 4 mcg Given 04/06/2024 11:16 AM EST 8 mcg propofoL (Diprivan) (10 mg/mL) infusion Intravenous, CONTINUOUS PRN, Starting on Sat04/06/24 at 1101, Until Sat04/06/24 at 1124, Anesthesia Intra-op, Routine Rate/Dose Change 04/06/2024 11:15 AM EST 200 mcg/kg/min 78 mL/hr Rate/Dose Change 04/06/2024 11:07 AM EST 150 mcg/kg/min 58 .5 mL/hr New Bag 04/06/2024 11:01 AM EST 200 mcg/kg/min 78 mL/hr propofoL (Diprivan) 10 mg/mL bolus injection (Anesthesia) Intravenous, PRN, Starting on Sat04/06/24 at 1101, Until Sat04/06/24 at 1124, Anesthesia Intra-op Given 04/06/2024 11:20 AM EST 20 mg Given 04/06/2024 11:14 AM EST 30 mg Given 04/06/2024 11:02 AM EST 20 mg documented in this encounter Care Teams Laboratory Technologist Relationship Specialty Start Date End Date Govind Mendes PA [facility] [place] [address] PCP - General Internal Medicine 11/06/23 documented as of this encounter
--- OUTSIDE RECORDS SUMMARY | 2024-06-08 12:45 | XMS_ITS | Encounter Summary ---
[place] [address] Care Team Providers Care Sheet Metal Shop Supervisor Name Role Phone Govind Mendes Primary Care Provider + Encounter Details Date Type Department Care Team (Latest Contact Info) Description 04/30/2024 External Results Neph[place] [phone] Karol Iverson RN CKD (chronic kidney disease) stage 5, GFR less than 15 ml/min Social History Tobacco Use Types Packs/Day [...] EST Clinical Support [place] [address] 06/19/2024 2:00 PM EST Office Visit [place] [address] Pepe Horton MD [facility] DR TRANSPLANT SURGERY [place] [id number] 08/10/2024 10:00 AM EDT Laboratory Appointment Lab [address] [place] [address] 08/10/2024 11:20 AM EDT Office Visit Nephrology Hypertension at [place] [address] Jovani Richardson MD [facility] [place] [address] A, Nurse Clinician None 08/20/2024 7:30 AM EDT Hospital Encounter Gastroenterology at [place] [address] Lawrence Gar MD [facility] [place] [address] 08/20/2024 7:30 AM EDT - 08/20/2024 8:15 AM EDT Surgery Gastroenterology at [place] [address] Lawrence Gar MD [facility] [place] [address] EGD, UPPER GI ENDOSCOPY (WRVU 2.09) 11/17/2024 4:20 PM EDT Office [place] [address] Lawrence Gar MD [facility] [place] [address] Scheduled Procedures Name Priority Associated Diagnoses Date/Ti me EGD, UPPER GI ENDOSCOPY (WRVU 2.09) Sharma's esophagus with high grade dysplasia 08/20/2024 7:30 AM EDT documented as of this encounter Procedures Procedure Name Priority Date/Time Associated Diagnosis Comments IRON AND TIBC Routine 04/30/2024 CKD (chronic kidney disease) stage 5, GFR less than 15 ml/min PROTEIN/CREATININE RATIO, URINE Routine 04/30/2024 CKD (chronic kidney disease) stage 5, GFR less than 15 ml/min CBC (WITH DIFF) Routine 04/30/2024 CKD (chronic [...] stage 5, GFR less than 15 ml/min documented in this encounter Results * CBC (with Diff) (04/30/2024) WBC - External 5.57 RBC - External 3.14 Hemoglobin - External 10.0 Hematocrit - External 30.3 MCV - External 97 MCH - External 31.8 MCHC - External 33.0 RDWCV - External 13.6 Platelets - External 190 MPV - External 10.1 Blood VENOUS BLOOD SPECIMEN / Unknown 04/30/2024 Jovani Richardson MD HEMATOLOGY ORDERABLE S * Protein/Creatinine Ratio, urine (04/30/2024) Creatinine, Urine - External 27.87 Protein, Urine Ran - External 141.2 Prot/Cre Ratio - External 5.06 Urine URINE SPECIMEN OBTAINED BY CLEAN CATCH PROCEDURE / Unknown 04/30/2024 Jovani Richardson MD URINE ORDERABLES * Iron and TIBC (04/30/2024) Iron - External 56 TIBC - External 298 Iron Saturation - External 19 Blood VENOUS BLOOD SPECIMEN / Unknown 04/30/2024 Jovani Richardson MD CHEMISTRY ORDERABLES * Basic Metabolic Panel Non-fasting (04/30/2024) Glucose Lvl - External 109 Blood Urea Nitrogen - External 84 Creatinine - External 5.4 EGFR - External 10.7 Sodium - External 139 Potassium - External 5.4 Chloride - External 102 CO2 - External 24.7 Calcium - External 8.6 Anion Gap - External 12.3 Blood VENOUS BLOOD SPECIMEN / Unknown 04/30/2024 Jovani Richardson MD CHEMISTRY ORDERABLES * Phosphorus (04/30/2024) Phosphorus - External 6.0 Blood VENOUS BLOOD SPECIMEN / Unknown 04/30/2024 Jovani Richardson MD CHEMISTRY ORDERABLES * Albumin Level (04/30/2024) Albumin - External 3.7 Blood VENOUS BLOOD SPECIMEN / Unknown 04/30/2024 Jovani Richardson MD CHEMISTRY ORDERABLES * Ferritin (04/30/2024) Pathologist [facility] Ferritin - External 194 Blood VENOUS BLOOD SPECIMEN / Unknown 04/30/2024 Jovani Richardson MD CHEMISTRY ORDERABLES documented in this encounter Visit Diagnoses Diagnosis CKD (chronic kidney disease) stage 5, GFR less than 15 ml/min Chronic kidney disease, Stage V Sharma's esophagus with high grade dysplasia Sharma's esophagus documented in this encounter Care Teams Sheet Metal Shop Supervisor Relationship Specialty Start Date End Date Govind [place] [address] PCP - General Internal Medicine 11/06/23 documented as of this encounter
--- OUTSIDE RECORDS SUMMARY | 2024-06-08 12:45 | XMS_ITS | Encounter Summary ---
[place] [address] Care Team Providers Care Steam Shovel Operator Name Role Phone Govind Mendes Primary Care Provider + Encounter Details Date Type Department Care Team (Late st Contact Info) Description 04/30/2024 Telephone Nephrology [place] [address] Lizet Hayward RN Social History Tobacco Use [...] Telephone Encounter - Lizet Hayward RN - 04/30/2024 8:30 AM EST S/O: Critical lab for patient: BUN 84 Creatinine 5.4 Mayela will fax other labs to Nephrology clinic P: RN will send above to Dr. Richardson for review and recommendation. documented in this encounter Plan of Treatment Upcoming Encounters Date Type Department Care Team (Latest Contact Info) Description 06/19/2024 1:40 PM EST Clinical Support [place] [address] 06/19/2024 2:00 PM EST Office Visit Solid Organ Transplant at [place] [address] Pepe Horton MD [facility] [place] [address] 08/10/2024 10:00 AM EDT Laboratory Appointment Lab [address] [address] 08/10/2024 11:20 AM EDT Office Visit Nephrology Hypertension at [place] [address] Jovani Richardson MD [facility] [place] [address] A, Nurse Clinician None 08/20/2024 7:30 AM EDT Hospital Encounter Gastroenterology at [place] [address] Lawrence Gar MD [facility] [place] [address] 08/20/2024 7:30 AM EDT - 08/20/2024 8:15 AM EDT Surgery Gastroenterology at [place] [address] Lawrence Gar MD [facility] [place] [address] EGD, UPPER GI ENDOSCOPY (WRVU 2.09) 11/17/2024 4:20 PM EDT Office Visit Gastroenterology at [place] [phone] Lawrence Gar MD [facility] [place] [address] Scheduled Procedures Name Priority Associated Diagnoses Date/Ti me EGD, UPPER GI ENDOSCOPY (WRVU 2.09) Sharma's esophagus with high grade dysplasia 08/20/2024 7:30 AM EDT documented as of this encounter Visit Diagnoses Not on filedocumented in this encounter Care Teams Steam Shovel Operator Relationship Specialty Start Date End Date Govind Mendes [place] [place] [address] PCP - General Internal Medicine 11/06/23 documented as of this encounter
--- OUTSIDE RECORDS SUMMARY | 2024-06-08 12:45 | XMS_ITS | Encounter Summary ---
Author Organization [facility] [place] [address] Care Team Providers Care Coal Picker Name Role Phone Govind Mendes Primary Care Provider + Encounter Details Date Type Department Care Team (Latest Contact Info) Description 05/06/2024 7:45 AM EST Laboratory Appointment Lab [address] [phone] Primary hypertension; Acute worsening of stage 4 chronic kidney disease Social History Tobacco Use Types Packs/Day Years [...] EST Clinical Support [place] [phone] 06/19/2024 2:00 PM EST Office [place] [phone] Pepe Horton MD [facility] [place] [address] 08/10/2024 10:00 AM EDT Laboratory Appointment Lab [address] [place] [phone] 08/10/2024 11:20 AM EDT Office Visit Nephrology Hypertension at [place] [address] Jovani Richardson MD [facility] [place] [address] A, Nurse Clinician None 08/20/2024 7:30 AM EDT Hospital Encounter Gastroenterology at [place] [address] Lawrence Gar MD [facility] [place] [address] 08/20/2024 7:30 AM EDT - 08/20/2024 8:15 AM EDT Surgery Gastroenterology at [place] [phone] Lawrence Gar MD [facility] [place] [address] EGD, UPPER GI ENDOSCOPY (WRVU 2.09) 11/17/2024 4:20 PM EDT Office Visit Gastroenterology at [place] [phone] Lawrence Gar MD [facility] [place] [address] Scheduled Procedures Name Priority Associated Diagnoses Date/Ti me EGD, UPPER GI ENDOSCOPY (WRVU 2.09) Sharma's esophagus with high grade dysplasia 08/20/2024 7:30 AM EDT documented as of this encounter Procedures Procedure Name Priority Date/Time Associated Diagnosis Comments BASIC METABOLIC PANEL Routine 05/06/2024 7:57 AM EST Primary hypertension Acute worsening of stage 4 chronic kidney disease documented in this encounter Results * (ABNORMAL) Basic Metabolic Panel Non-fasting (05/06/2024 7:57 AM EST) Glucose 98 65 - 199 mg/dL 05/06/2024 8:42 AM [facility] Comment:Glucose Concentratio n >=200 mg/dL plus symptoms is consistent with Diabetes Mellitus. Blood Urea Nitrogen 78(H) 10 - 20 mg/dL 05/06/2024 8:42 AM [facility] Creatinine 5.30(H) 0.80 - 1.50 mg/dL 05/06/2024 8:42 AM [facility] Sodium 135 135 - 145 mMol/L 05/06/2024 8:42 AM [facility] Potassium 5.4(H) 3.5 - 5.0 mMol/L 05/06/2024 8:42 AM [facility] Chloride 99 98 - 107 mMol/L 05/06/2024 8:42 AM [facility] Carbon Dioxide 19(L) 22 - 31 mMol/L 05/06/2024 8:42 AM [facility] Anion Gap 17(H) 5 - 15 mMol/L 05/06/2024 8:42 AM [facility] Calcium 8.7 8.5 - 10.5 mg/dL 05/06/2024 8:42 AM [facility] Est Glomerular Filtration Rate - Male 11 mL/min/1. 73 m?? 05/06/2024 8:42 AM [facility] Comment: This [...] Calculator [employer] Fasting Status No 05/06/2024 8:42 AM EST [facility] Blood VENOUS BLOOD SPECIMEN / Unknown Venipuncture / Unknown 05/06/2024 7:57 AM EST 05/06/2024 8:01 AM EST Jovani Richardson MD CHEMISTRY ORDERABLES Performing Organization Address City/State/[facility] Co de Phone Number [facility] [place] [address] documented in this encounter Visit Diagnoses Diagnosis Primary hypertension Unspecified essential hypertension Acute worsening of stage 4 chronic kidney disease Sharma's esophagus with high grade dysplasia Sharma's esophagus documented in this encounter Care Teams Coal Picker Relationship Specialty Start Date End Date Govind Mendes [place] [address] [place] [address] PCP - General Internal Medicine 11/06/23 documented as of this encounter
--- OUTSIDE RECORDS SUMMARY | 2024-06-08 12:45 | XMS_ITS | Encounter Summary ---
[place] [address] Care Team Providers Care Receiving Weigher Name Role Phone Govind Mendes Primary Care Provider + Encounter Details Date Type Department Care Team (Late st Contact Info) Description 05/25/2024 Telephone [place] [phone] Cristin Perez RN Social History Tobacco Use [...] Encounter - Cristin Perez RN - 05/25/2024 1:42 PM EST Call to patient to obtain brief history prior to scheduling for kidney transplant evaluation. No answer. Left message for return call. Patient should be scheduled for patient discussed with MD and deepika. . documented in this encounter Plan of Treatment Upcoming Encounters Date Type Department Care Team (Latest Contact Info) Description 06/19/2024 1:40 PM EST Clinical Support [place] [address] 06/19/2024 2:00 PM EST Office Visit [place] [address] Pepe Horton MD [facility] [place] [address] 08/10/2024 10:00 AM EDT Laboratory Appointment Lab [address] [phone] 08/10/2024 11:20 AM EDT Office Visit [place] [address] Jovani Richardson MD [facility] [place] [address] A, Nurse Clinician None 08/20/2024 7:30 AM EDT Hospital Encounter Gastroenterology at [place] [phone] Lawrence Gar MD [facility] [place] [address] 08/20/2024 7:30 AM EDT - 08/20/2024 8:15 AM EDT Surgery Gastroenterology at [place] [phone] Lawrence Gar MD [facility] [place] [address] EGD, UPPER GI ENDOSCOPY (WRVU 2.09) 11/17/2024 4:20 PM EDT Office Visit Gastroenterology at [place] [phone] Lawrence Gar MD [facility] [place] [address] Scheduled Procedures Name Priority Associated Diagnoses Date/Ti me EGD, UPPER GI ENDOSCOPY (WRVU 2.09) Sharma's esophagus with high grade dysplasia 08/20/2024 7:30 AM EDT documented as of this encounter Visit Diagnoses Not on filedocumented in this encounter Care Teams Receiving Weigher Relationship Specialty Start Date End Date Govind Mendes [place] [address] [place] [address] PCP - General Internal Medicine 11/06/23 documented as of this encounter
--- OUTSIDE RECORDS SUMMARY | 2024-06-08 12:45 | XMS_ITS | Encounter Summary ---
Author Organization [place] [address] Care Team Providers Care Bookmaker Map Name Role Phone Govind Mendes Primary Care Provider + Encounter Details Date Type Department Care Team (Late st Contact Info) Description 05/05/2024 Orders Only Nephrology [place] [phone] Lizet [place], shovel mechanic worsening of stage 4 chronic kidney disease (Primary Dx); CKD (chronic kidney disease) stage 5, GFR less than 15 ml/min; Primary hypertension Social History Tobacco Use Types [...] EST Clinical Support [place] [address] 06/19/2024 2:00 PM EST Office Visit [place] [address] Pepe Horton MD [facility] [place] [address] 08/10/2024 10:00 AM EDT Laboratory Appointment Lab [address] [place] [address] 08/10/2024 11:20 AM EDT Office Visit Nephrology Hypertension at [place] [address] Jovani Richardson MD [facility] [place] [address] A, Nurse Clinician None 08/20/2024 7:30 AM EDT Hospital Encounter Gastroenterology at [place] [address] Lawrence Gar MD [facility] [place] [address] 08/20/2024 7:30 AM EDT - 08/20/2024 8:15 AM EDT Surgery Gastroenterology at [place] [address] Lawrence Gar MD [facility] [place] [address] EGD, UPPER GI ENDOSCOPY (WRVU 2.09) 11/17/2024 4:20 PM EDT Office Visit Gastroenterology at [place] [phone] Lawrence Gar MD [facility] [place] [address] Scheduled Procedures Name Priority Associated Diagnoses Date/Ti me EGD, UPPER GI ENDOSCOPY (WRVU 2.09) Sharma's esophagus with high grade dysplasia 08/20/2024 7:30 AM EDT documented as of this encounter Results * (ABNORMAL) Basic Metabolic Panel Non-fasting (05/06/2024 7:57 AM EST) Glucose 98 65 - 199 mg/dL 05/06/2024 8:42 AM [facility] Comment:Glucose Concentratio n >=200 mg/dL plus symptoms is consistent with Diabetes Mellitus. Blood Urea Nitrogen 78(H) 10 - 20 mg/dL 05/06/2024 8:42 AM [facility] Creatinine 5.30(H) 0.80 - 1.50 mg/dL 05/06/2024 8:42 AM [facility] Sodium 135 135 - 145 mMol/L 05/06/2024 8:42 AM [facility] Potassium 5.4(H) 3.5 - 5.0 mMol/L 05/06/2024 8:42 AM [facility] Chloride 99 98 - 107 mMol/L 05/06/2024 8:42 AM [facility] Carbon Dioxide 19(L) 22 - 31 mMol/L 05/06/2024 8:42 AM [facility] Anion Gap 17(H) 5 - 15 mMol/L 05/06/2024 8:42 AM [facility] Calcium 8.7 8.5 - 10.5 mg/dL 05/06/2024 8:42 AM [facility] Est Glomerular Filtration Rate - Male 11 mL/min/1. 73 m?? 05/06/2024 8:42 AM [facility] Comment: This patient's estimated GFR [...] Foundation Fasting Status No 05/06/2024 8:42 AM [facility] Blood VENOUS BLOOD SPECIMEN / Unknown Venipuncture / Unknown 05/06/2024 7:57 AM EST 05/06/2024 8:01 AM EST Jovani Richardson MD CHEMISTRY ORDERABLES [facility] [place] [address] documented in this encounter Visit Diagnoses Diagnosis Acute worsening of stage 4 chronic kidney disease- Primary CKD (chronic kidney disease) stage 5, GFR less than 15 ml/min Chronic kidney disease, Stage V Primary hypertension Unspecified essential hypertension Sharma's esophagus with high grade dysplasia Sharma's esophagus documented in this encounter Care Teams Bookmaker Map Relationship Specialty Start Date End Date Govind Mend[place] [place] [address] PCP - General Internal Medicine 11/06/23 documented as of this encounter
--- OUTSIDE RECORDS SUMMARY | 2024-06-08 12:45 | XMS_ITS | Encounter Summary ---
[place] [address] Care Team Providers Care Retail Services Professional Name Role Phone Govind Mendes Primary Care Provider + Encounter Details Date Type Department Care Team (Late st Contact Info) Description 05/19/2024 Telephone Ne[place] [phone] Lizet [place] RN Social History Tobacco Use [...] Telephone Encounter - Lizet [place] RN - 05/19/2024 10:03 AM EST S/O: RN left message for patient to discuss neda payne. Left voice mail and awaiting returncall. documented in this encounter Plan of Treatment Upcoming Encounters Date Type Department Care Team (Latest Contact Info) Description 06/19/2024 1:40 PM EST Clinical Support [place] [phone] 06/19/2024 2:00 PM EST Office Visit [place] [address] Pepe Horton MD [facility] [place] [address] 08/10/2024 10:00 AM EDT Laboratory Appointment Lab [address] [address] 08/10/2024 11:20 AM EDT Office Visit Nephrology Hypertension at [address] Jovani Richardson MD [facility] [place] [address] A, Nurse Clinician None 08/20/2024 7:30 AM EDT Hospital Encounter Gastroenterology at [address] Lawrence Gar MD [facility] [place] [address] 08/20/2024 7:30 AM EDT - 08/20/2024 8:15 AM EDT Surgery Gastroenterology at [place] [address] Lawrence Gar MD [facility] [place] [address] EGD, UPPER GI ENDOSCOPY (WRVU 2.09) 11/17/2024 4:20 PM EDT Office [place] [address] Lawrence Gar MD [facility] [place] [address] Scheduled Procedures Name Priority Associated Diagnoses Date/Ti nm EGD, UPPER GI ENDOSCOPY (WRVU 2.09) Sharma's esophagus with high grade dysplasia 08/20/2024 7:30 AM EDT documented as of this encounter Visit Diagnoses Not on filedocumented in this encounter Care Teams Retail Services Professional Relationship Specialty Start Date End Date Govind Mendes PA [facility] [place] [address] PCP - General Internal Medicine 11/06/23 documented as of this encounter
--- OUTSIDE RECORDS SUMMARY | 2024-06-08 12:45 | XMS_ITS | Encounter Summary ---
[place] [address] Care Team Providers Care Deputy Fire Chief Name Role Phone Govind Mendes Primary Care Provider + Encounter Details Date Type Department Care Team (Late st Contact Info) Description 05/21/2024 Telephone [place] [phone] Cristin Perez RN Social History Tobacco Use [...] Telephone Encounter - Cristin Perez RN - 05/21/2024 9:42 AM EST Call to patient to obtain brief history prior to scheduling for kidney transplant evaluation. No answer. Left message for return call. documented in this encounter Plan of Treatment Upcoming Encounters Date Type Department Care Team (Latest Contact Info) Description 06/19/2024 1:40 PM EST Clinical Support [place] [phone] 06/19/2024 2:00 PM EST Office Visit Solid Organ Transplant at [place] [phone] Pepe Horton MD [facility] [place] [address] 08/10/2024 10:00 AM EDT Laboratory Appointment Lab [address] [place] [address] 08/10/2024 11:20 AM EDT Office Visit Nephrology Hypertension at [address] Jovani Richardson MD [facility] [place] [address] A, Nurse Clinician None 08/20/2024 7:30 AM EDT Hospital Encounter Gastroenterology at [place] [phone] Lawrence Gar MD [facility] [place] [address] 08/20/2024 7:30 AM EDT - 08/20/2024 8:15 AM EDT Surgery Gastroenterology at [place] [phone] Lawrence Gar MD [facility] [place] [address] EGD, UPPER GI ENDOSCOPY (WRVU 2.09) 11/17/2024 4:20 PM EDT Office Visit Gastroenterology at [place] [phone] Lawrence Gar MD [facility] [place] [address] Scheduled Procedures Name Priority Associated Diagnoses Date/Ti me EGD, UPPER GI ENDOSCOPY (WRVU 2.09) Sharma's esophagus with high grade dysplasia 08/20/2024 7:30 AM EDT documented as of this encounter Visit Diagnoses Not on filedocumented in this encounter Care Teams Deputy Fire Chief Relationship Specialty Start Date End Date Govind Mendes [place] [address] [place] [address] PCP - General Internal Medicine 11/06/23 documented as of this encounter
--- OUTSIDE RECORDS SUMMARY | 2024-06-08 12:45 | XMS_ITS | Encounter Summary ---
[place] [address] Care Team Providers Care Public Safety Police Name Role Phone Govind Mendes Primary Care Provider + Encounter Details Date Type Department Care Team (Late st Contact Info) Description 05/14/2024 Telephone [place] [phone] Natasha Piper Social History Tobacco Use Types Packs/Day Years [...] encounter Miscellaneous Notes * Telephone Encounter - Natasha Piper - 05/14/2024 11:33 AM EST Mathew Mendez [id number] Diagnosis/Indication: EGD 3 mos. Sharma's ablation. Please review patient chart to confirm if [...] had a/an Upper Endoscopy before? Yes: Date 04/06/24 If yes, did you have any problems [...] supplements or vitamins that contain iron? Yes iron Do you take a GLP-1 medication for diabetes and/or weight loss? All patients who say yes, regardless of procedure, must be on clear liquids day prior to procedure. If patient answers yes, you must note which medication and instruct to hold the medication prior to procedure for one dose. Brand names include Wegovy, Ozempic, Trulicity, Mounjaro, Zepbound, Rynelsus, Saxenda, Victoza, Byetta, Bydureon, Soliqua, Xultophy No Do you regularly take prescription opioid pain medications on a daily basis? (Includes oxycodone, Percocet, Suboxone, methadone, etc.) No If yes, assign the Extended MiraLAX Prep Do you have a preference regarding the [...] use of a c- pap machine? Yes BiPAP Do you use an oxygen tank at home? No Do you use a rescue inhaler more than twice per day? (COPD, severe asthma) No Do you experience breathing problems when you lay flat for a period of time? No Do you regularly take prescription opioid pain medications on a daily basis? (Includes oxycodone, Percocet, Suboxone, methadone, etc.) No SCHEDULING CONFIRMATIONS: Please note any and all [...] NEW referral patient; skip this question if [facility] provider ordered the procedure.) No Is there any other information or concerns you would like to us to share with your care team in relation to your upcoming scheduled procedure? No You must have a responsible republican who will drive you to your procedure, stay on campus for the entire duration of your procedure, and drive you home from your procedure. Who will likely be your hazmat tanker driver for the procedure? *Please Verify the height and weight, and adjust if height and/or weight have changed* Estimated body mass index is 24.28 kg/m?? as calculated from the following: Height as of 11/19/23: 167.6 cm (5' 6). Weight as of 05/06/24: 68.2 kg (150 lb 6.4 oz). *Patient must be scheduled for Anesthesia support if BMI is 40 or above* Age:69 y.o. documented in this encounter Plan of Treatment Upcoming Encounters Date Type Department Care Team (Latest Contact Info) Description 06/19/2024 1:40 PM EST Clinical Support [place] [address] 06/19/2024 2:00 PM EST Office [place] [phone] Pepe Horton MD [facility] [place] [address] 08/10/2024 10:00 AM EDT Laboratory Appointment Lab [address] [phone] 08/10/2024 11:20 AM EDT Office Visit Nephrology Hypertension at [place] [phone] Jovani Richardson MD [facility] [place] [address] A, Nurse Clinician None 08/20/2024 7:30 AM EDT Hospital Encounter Gastroenterology at [place] [phone] Lawrence Gar MD [facility] [place] [address] 08/20/2024 7:30 AM EDT - 08/20/2024 8:15 AM EDT Surgery Gastroenterology at [place] [phone] Lawrence Gar MD [facility] [place] [address] EGD, UPPER GI ENDOSCOPY (WRVU 2.09) 11/17/2024 4:20 PM EDT Office [place] [address] Lawrence Gar MD [facility] [place] [address] Scheduled Procedures Name Priority Associated Diagnoses Date/Ti me EGD, UPPER GI ENDOSCOPY (WRVU 2.09) Sharma's esophagus with high grade dysplasia 08/20/2024 7:30 AM EDT documented as of this encounter Visit Diagnoses Not on filedocumented in this encounter Care Teams Public Safety Police Relationship Specialty Start Date End [place] [address] PCP - General Internal Medicine 11/06/23 documented as of this encounter
--- OUTSIDE RECORDS SUMMARY | 2024-06-08 12:45 | XMS_ITS | Encounter Summary ---
Author Organization [facility] [place] [address] Care Team Providers Care Steam Fitter Supervisor Name Role Phone Govind Mendes Primary Care Provider + Encounter Details Date Type Department Care Team (Late st Contact Info) Description 02/27/2024 Tele[place] [phone] Jovani Richardson MD [facility] [place] [address] Social History Tobacco Use Types Packs/Day Years [...] encounter Miscellaneous Notes * Telephone Encounter - Jovani Richardson MD - 02/27/2024 1:15 PM EDT Call from PCP regarding Mathew's labs. PTH 248 Ca 8.9 Phos 6.8 Vit D 14 On calcitriol 0.25mcg daily. Will increase calcitriol to 0.5mcg daily and start sevelamer 800mg TID with meals. His PCP will repeat labs in a month; Mathew has a followup with me in April. documented in this encounter Plan of Treatment Upcoming Encounters Date Type Department Care Team (Latest Contact Info) Description 06/19/2024 1:40 PM EST Clinical Support Solid Organ Transplant at [place] [phone] 06/19/2024 2:00 PM EST Office [place] [address] Pepe Horton MD [facility] [place] [address] 08/10/2024 10:00 AM EDT Laboratory Appointment Lab [address] [place] [address] 08/10/2024 11:20 AM EDT Office Visit [place] [address] Jovani Richardson MD [facility] [place] [address] A, Nurse Clinician None 08/20/2024 7:30 AM EDT Hospital Encounter Gastroenterology at [place] [phone] Lawrence Gar MD [facility] [place] [address] 08/20/2024 7:30 AM EDT - 08/20/2024 8:15 AM EDT Surgery Gastroenterology at [place] [phone] Lawrence Gar MD [facility] [place] [address] EGD, UPPER GI ENDOSCOPY (WRVU 2.09) 11/17/2024 4:20 PM EDT Office [place] [address] Lawrence Gar MD [facility] [place] [address] Scheduled Procedures Name Priority Associated Diagnoses Date/Ti me EGD, UPPER GI ENDOSCOPY (WRVU 2.09) Sharma's esophagus with high grade dysplasia 08/20/2024 7:30 AM EDT documented as of this encounter Visit Diagnoses Not on filedocumented in this encounter Care Teams Steam Fitter Supervisor Relationship Specialty Start Date End Date Govind Mendes PA [facility] [place] [address] PCP - General Internal Medicine 11/06/23 documented as of this encounter
--- OUTSIDE RECORDS SUMMARY | 2024-06-08 12:45 | XMS_ITS | Encounter Summary ---
[place] [address] Care Team Providers Care Document Photographer Name Role Phone Govind Mendes Primary Care Provider + Encounter Details Date Type Department Care Team (Late st Contact Info) Description 05/11/2024 Telephone Ne[place] [address] Lizet [place], RN Social History Tobacco Use Types Packs/Day [...] Addendum Note - Jovani Richardson MD - 05/18/2024 3:25 PM ESTAddended by: JOVANI RICHARDSON on: 05/18/2024 03:25 PM Modules accepted: Orders * Telephone Encounter - Lizet [place] RN - 05/11/2024 10:26 AM EST S/O: Patient called with his to ask questions regarding his renal biopsy and the transplant referral. First he asked about his blood type because he isn't sure what it is. It does not appear he has ever had a type and screen done here at [facility]. When they are connected with transplant, that willbe part of the testing. They can expect to hear from transplant in the next week or so to schedule an appointment. The biopsy is only done in one kidney but the ultrasound will be done on both. The risks for bleeding and infection would be increased if the biopsy was done on both sides and the results would be the same in both kidneys so it is only necessary to take samples from one side. Mathew had an adverse reaction again with the sevelamer. He had some difficulty taking it when it wasprescribed initially but he wanted to try it again to see if it was from the medication or from being ill around the same time. He experienced complete exhaustion, dry heaves, and nausea when he tookit again. RN will discuss with Dr. Richardson to see what other binder he can try. Mathew and his asked about getting more information regarding dialysis options and if it was inevitable that he would have to start. RN referred them to the [facility] website and will send a message HUGO Durán with [facility], to reach out and set up a meeting about treatment modality options. If Mathew's kidney function continues to decline as it has been, he would need to start dialysis. P: RN will send above to Dr. Richardson for review and recommendation. RN will also send a message to the scheduling secretaries to try to reschedule the renal biopsy for a sooner date as requested by patient and his . documented in this encounter Plan of Treatment Upcoming Encounters Date Type Department Care Team (Latest Contact Info) Description 06/19/2024 1:40 PM EST Clinical Support [place] [address] 06/19/2024 2:00 PM EST Office Visit [place] [address] Pepe Horton MD [facility] [place] [address] 08/10/2024 10:00 AM EDT Laboratory Appointment Lab [address] [place] [address] 08/10/2024 11:20 AM EDT Office Visit Nephrology Hypertension at [place] [address] Jovani Richardson MD [facility] [place] [address] A, Nurse Clinician None 08/20/2024 7:30 AM EDT Hospital Encounter Gastroenterology at [place] [address] Lawrence Gar MD [facility] [place] [address] 08/20/2024 7:30 AM EDT - 08/20/2024 8:15 AM EDT Surgery Gastroenterology at [place] [address] Lawrence Gar MD [facility] [place] [address] EGD, UPPER GI ENDOSCOPY (WRVU 2.09) 11/17/2024 4:20 PM EDT Office Visit Gastroenterology at [place] [address] Lawrence Gar MD [facility] [place] [address] Scheduled Procedures Name Priority Associated Diagnoses Date/Ti me EGD, UPPER GI ENDOSCOPY (WRVU 2.09) Sharma's esophagus with high grade dysplasia 08/20/2024 7:30 AM EDT documented as of this encounter Visit Diagnoses Not on filedocumented in this encounter Care Teams Document Photographer Relationship Specialty Start Date End Date Goivnd Mendes [place] [facility] [place] [address] PCP - General Internal Medicine 11/06/23 documented as of this encounter
--- OUTSIDE RECORDS SUMMARY | 2024-06-08 12:45 | XMS_ITS | Encounter Summary ---
[place] [address] Care Team Providers Care Wool Hanker Name Role Phone Govind Mendes Primary Care Provider + Encounter Details Date Type Department Care Team (Late st Contact Info) Description 05/22/2024 Telephone Nephrology [place] [address] Lizet [place] RN Social History Tobacco Use [...] Telephone Encounter - Lizet [place] RN - 05/22/2024 8:41 AM EST S/O: Patient returned RN's call regarding new medication. RN explained that Dr. Richardson ordered a new binder called Phoslo (calcium acetate). It is administered the same way as sevelamer but is made from different ingredients so hopefully he will tolerate this better. RN asked patient to call if he does not tolerate this medication. P: Patient will clam picker Phoslo from pharmacy and take three times daily with his meals. He will letRN know if he has any side effects from the medication. documented in this encounter Plan of Treatment Upcoming Encounters Date Type Department Care Team (Latest Contact Info) Description 06/19/2024 1:40 PM EST Clinical Support Solid Organ Transplant at [place] [phone] 06/19/2024 2:00 PM EST Office [place] [address] Pepe Horton MD [facility] [place] [address] 08/10/2024 10:00 AM EDT Laboratory Appointment Lab [address] [address] 08/10/2024 11:20 AM EDT Office Visit [place] [address] Jovani Richardson MD [facility] [place] [place] [address] A, Nurse Clinician None 08/20/2024 7:30 AM EDT Hospital Encounter Gastroenterology at [place] [phone] Lawrence Gar MD [facility] [place] [address] 08/20/2024 7:30 AM EDT - 08/20/2024 8:15 AM EDT Surgery Gastroenterology at [place] [phone] Lawrence Gar MD [facility] [place] [address] EGD, UPPER GI ENDOSCOPY (WRVU 2.09) 11/17/2024 4:20 PM EDT Office Visit [place] [address] Lawrence Gar MD [facility] [place] [address] Scheduled Procedures Name Priority Associated Diagnoses Date/Ti me EGD, UPPER GI ENDOSCOPY (WRVU 2.09) Sharma's esophagus with high grade dysplasia 08/20/2024 7:30 AM EDT documented as of this encounter Visit Diagnoses Not on filedocumented in this encounter Care Teams Wool Hanker Relationship Specialty Start Date End Date Govind Mendes PA [facility] [place] [address] PCP - General Internal Medicine 11/06/23 documented as of this encounter
--- OUTSIDE RECORDS SUMMARY | 2024-06-08 12:45 | XMS_ITS | Encounter Summary ---
[place] [address] Care Team Providers Care Golf Cart Maker Name Role Phone Govind Mendes Primary Care Provider + Encounter Details Date Type Department Care Team (Late st Contact Info) Description 01/08/2024 Telephone [place] [phone] Clarissa Zamudio, RN Social History Tobacco Use [...] EST Clinical Support [place] [phone] 06/19/2024 2:00 PM EST Office Visit Solid Organ Transplant at [place] [phone] Pepe Horton MD [facility] [place] [address] 08/10/2024 10:00 AM EDT Laboratory Appointment Lab [address] [address] 08/10/2024 11:20 AM EDT Office Visit Nephrology Hypertension at [address] Jovani Richardson MD [facility] [place] [address] A, Nurse Clinician None 08/20/2024 7:30 AM EDT Hospital Encounter Gastroenterology at [place] [phone] Lawrence Gar MD [facility] [place] [place] [address] 08/20/2024 7:30 AM EDT - 08/20/2024 8:15 AM EDT Surgery Gastroenterology at [place] [phone] Lawrence Gar MD [facility] [place] [address] EGD, UPPER GI ENDOSCOPY (WRVU 2.09) 11/17/2024 4:20 PM EDT Office Visit Gastroenterology at [place] [phone] Lawrence Gar MD [facility] [place] [address] Scheduled Procedures Name Priority Associated Diagnoses Date/Ti me EGD, UPPER GI ENDOSCOPY (WRVU 2.09) Sharma's esophagus with high grade dysplasia 08/20/2024 7:30 AM EDT documented as of this encounter Visit Diagnoses Not on filedocumented in this encounter Care Teams Golf Cart Maker Relationship Specialty Start Date End Date Govind Mnedes [place] [address] PCP - General Internal Medicine 11/06/23 documented as of this encounter
--- OUTSIDE RECORDS SUMMARY | 2024-06-08 12:46 | XMS_ITS | Encounter Summary ---
Author Organization [facility] [place] [address] Care Team Providers Care Agricultural Produce Commission Agent Name Role Phone Govind Mendes Primary Care Provider + Encounter Details Date Type Department Care Team (Late st Contact Info) Description 11/29/2023 Orders [place] [address] Lawrence Gar MD [facility] [place] [address] Sharma's esophagus with dysplasia (Primary Dx) Social [...] EST Clinical Support [place] [phone] 06/19/2024 2:00 PM EST Office Visit [place] [address]1000 Pepe Horton MD [facility] [place] [address] 08/10/2024 10:00 AM EDT Laboratory Appointment Lab [address] [place] [address] 08/10/2024 11:20 AM EDT Office Visit Ne[place] [address] Jovani Richardson MD [facility] [place] [place] [address] A, Nurse Clinician None 08/20/2024 7:30 AM EDT Hospital Encounter Gastroenterology at [place] [phone] Lawrence Gar MD [facility] [place] [address] 08/20/2024 7:30 AM EDT - 08/20/2024 8:15 AM EDT Surgery Gastroenterology at [place] [phone] Lawrence Gar MD [facility] [place] [address] EGD, UPPER GI ENDOSCOPY (WRVU 2.09) 11/17/2024 4:20 PM EDT Office [place] [address] Lawrence Gar MD [facility] [place] [address] Scheduled Orders Name Type Priority Associated Diagnoses [...] esophagus documented in this encounter Care Teams Agricultural Produce Commission Agent Relationship Specialty Start Date End Date Govind [place] [address] [place] [address] PCP - General Internal Medicine 11/06/23 documented as of this encounter
--- OUTSIDE RECORDS SUMMARY | 2024-06-08 12:46 | XMS_ITS | Encounter Summary ---
Author Organization [facility] [place] [address] Care Team Providers Care Sr. Strategic Sourcing Manager Name Role Phone Govind Mendes Primary Care Provider + Encounter Details Date Type Department Care Team (Late st Contact Info) Description 11/26/2023 Ancillary Procedure Radiology Library at [facility] [place] [address] Polina Duncan MD [facility] [place] [address] Social History Tobacco Use Types Packs/Day Years [...] EST Clinical Support [place] [phone] 06/19/2024 2:00 PM EST Office Visit [place] [phone] Pepe Horton MD [facility] [place] [address] 08/10/2024 10:00 AM EDT Laboratory Appointment Lab [address] [place] [address] 08/10/2024 11:20 AM EDT Office Visit Nephrology Hypertension at [place] [address] Jovani Richardson MD [facility] [place] [address] A, Nurse Clinician None 08/20/2024 7:30 AM EDT Hospital Encounter Gastroenterology at [place] [address] Lawrence Gar MD [facility] [place] [address] 08/20/2024 7:30 AM EDT - 08/20/2024 8:15 AM EDT Surgery Gastroenterology at [place] [address] Lawrence Gar MD [facility] [place] [address] EGD, UPPER GI ENDOSCOPY (WRVU 2.09) 11/17/2024 4:20 PM EDT Office Visit Gastroenterology at [place] [phone] Lawrence Gar MD [facility] [place] [address] Scheduled Procedures Name Priority Associated Diagnoses Date/Ti [...] DX Shoulder (11/26/2023 12:00 AM EDT) Narrative [facility] - 02/05/2024 3:03 AM EDT This exam is auto-finalizing. It's purpose is for storage only. Polina Duncan MD IM FILM LIBRARY ORD ERABLES Performing Organization Address City/State/[facility] Co de Phone Number [place], [place] documented in this encounter Visit Diagnoses Not on filedocumented in this encounter Care Teams Sr. Strategic Sourcing Manager Relationship Specialty Start Date End Date Govind Mendes [place] [address] [place] [address] PCP - General Internal Medicine 11/06/23 documented as of this encounter
--- OUTSIDE RECORDS SUMMARY | 2024-06-08 12:46 | XMS_ITS | Encounter Summary ---
Author Organization [facility] [place] [address] Care Team Providers Care Ui Developer Designer Name Role Phone Slade Tran MD Primary Care Provider [phone] Encounter Details Date Type Department Care Team (Late st Contact Info) Description 09/25/2023 6:25 PM EDT Ancillary Procedure Radiology Library at [facility] [place] [address] Slade Tran MD [address] [place] [address] [facility] [place] [address] Social History Tobacco Use Types Packs/Day Years [...] EST Clinical Support [place] [address]-1000 06/19/2024 2:00 PM EST Office [place] [address]-[address] [facility] [place] [address] 08/10/2024 10:00 AM EDT Laboratory Appointment Lab [address] [place] [address] 08/10/2024 11:20 AM EDT Office Visit Nephrology Hypertension at [place] [address] [facility] [place] [address] A, Nurse Clinician None 08/20/2024 7:30 AM EDT Hospital Encounter Gastroenterology at [place] [address] [facility] [place] [address] 08/20/2024 7:30 AM EDT - 08/20/2024 8:15 AM EDT Surgery Gastroenterology at [place] [phone] [facility] [place] [address] EGD, UPPER GI ENDOSCOPY (WRVU 2.09) 11/17/2024 4:20 PM EDT Office Visit Gastroenterology at [place] [phone] [facility] [place] [address] Scheduled Procedures Name Priority Associated Diagnoses Date/Ti [...] Ultrasound Study (09/25/2023 6:20 PM EDT) Narrative [facility] - 09/25/2023 6:20 PM EDT This exam is auto-finalizing. It's purpose is for storage only. Slade Tran MD [facility] FILM LIBRARY ORD ERABLES Performing Organization Address City/State/[facility] Co de Phone Number [place], [place] documented in this encounter Visit Diagnoses Not on filedocumented in this encounter Care Teams Ui Developer Designer Relationship Specialty Start Date End Date Slade Tran MD PCP - General Family Medicine 06/19/22 11/05/23 documented as of this encounter
--- OUTSIDE RECORDS SUMMARY | 2024-06-08 12:46 | XMS_ITS | Encounter Summary ---
[place] [address] Care Team Providers Care Casting Sorter Name Role Phone Slade Tran MD Primary Care Provider [phone] Encounter Details Date Type Department Care Team (Late st Contact Info) Description 09/24/2023 External Results Ne[place] [phone] Karol Iverson RN Social History Tobacco Use [...] EST Clinical Support [place] [phone] 06/19/2024 2:00 PM EST Office Visit [place] [phone] Pepe Horton MD [facility] [place] [address] 08/10/2024 10:00 AM EDT Laboratory Appointment Lab [address] [place] [address] 08/10/2024 11:20 AM EDT Office Visit Nephrology Hypertension at [place] [address] Jovani Richardson MD [facility] [place] [address] A, Nurse Clinician None 08/20/2024 7:30 AM EDT Hospital Encounter Gastroenterology at [place] [address] Lawrence Gar MD [facility] [place] [address] 08/20/2024 7:30 AM EDT - 08/20/2024 8:15 AM EDT Surgery Gastroenterology at [place] [phone] Lawrence Gar MD [facility] [place] [address] EGD, UPPER GI ENDOSCOPY (WRVU 2.09) 11/17/2024 4:20 PM EDT Office Visit Gastroenterology at [place] [phone] Lawrence Gar MD [facility] [place] [address] Scheduled Procedures Name Priority Associated Diagnoses Date/Ti [...] on filedocumented in this encounter Care Teams Casting Sorter Relationship Specialty Start Date End Date Slade Tran MD PCP - General Family Medicine 06/19/22 11/05/23 documented as of this encounter
--- OUTSIDE RECORDS SUMMARY | 2024-06-08 12:46 | XMS_ITS | Encounter Summary ---
[place] [address] Care Team Providers Care Floor Care Technician Name Role Phone Slade Tran MD Primary Care Provider [phone] Encounter Details Date Type Department Care Team (Late st Contact Info) Description 09/18/2023 Telephone [place] [phone] Karol Iverson, RN Social History Tobacco Use [...] 09/18/2023 3:45 PM EDT S/O: Call from [facility] with critical result. Creatinine 3.9. Full BMP to follow P: Above sent to Dr Richardson for review and recommendation Addendum 4/25/[address] Richardson - Please see if he's taking and PPIs or NSAIDS and stop them if so. Find out where he likes to get labs done; we need a renal US, SPEP/UPEP, serum free light chains. Orders efaxed to [facility] lab and diagnostic imaging Full BMP resulted and entered. CO2 14 and no documented bicarbonate supplementation. Message to Dr Richardson to see if changes recommendations documented in this encounter Plan of Treatment Upcoming Encounters Date Type Department Care Team (Latest Contact Info) Description 06/19/2024 1:40 PM EST Clinical Support [place] [address] 06/19/2024 2:00 PM EST Office [place] [phone] Pepe Horton MD [facility] [place] [address] 08/10/2024 10:00 AM EDT Laboratory Appointment Lab [address] [place] [address] 08/10/2024 11:20 AM EDT Office Visit Nephrology Hypertension at [place] [phone] Jovani Richardson MD [facility] [place] [address] A, Nurse Clinician None 08/20/2024 7:30 AM EDT Hospital Encounter Gastroenterology at [place] [phone] Lawrence Gar MD [facility] [place] [address] 08/20/2024 7:30 AM EDT - 08/20/2024 8:15 AM EDT [place] [address] Lawrence Gar MD [facility] [place] [address] EGD, UPPER GI ENDOSCOPY (WRVU 2.09) 11/17/2024 4:20 PM EDT Office [place] [address] Lawrence Gar MD [facility] [place] [address] Scheduled Orders Name Type Priority Associated Diagnoses [...] documented in this encounter Care Teams Floor Care Technician Relationship Specialty Start Date End Date Slade Tran MD PCP - General Family Medicine 06/19/22 11/05/23 documented as of this encounter
--- OUTSIDE RECORDS SUMMARY | 2024-06-08 12:46 | XMS_ITS | Encounter Summary ---
[place] [address] Care Team Providers Care Professor Of Anthropology Name Role Phone Govind Mendes Primary Care Provider + Encounter Details Date Type Department Care Team (Late st Contact Info) Description 12/10/2023 Telephone Nephrology [place] [address] Karol Iverson, LOYD Social History Tobacco Use Types Packs/Day Years [...] 12/10/2023 3:51 PM EDT S/O: Call from [facility] with critical result. BUN 61 and Creatinine 4.4. Full BMP to follow. P: Above sent to Dr Richardson for review and recommendation documented in this encounter Plan of Treatment Upcoming Encounters Date Type Department Care Team (Latest Contact Info) Description 06/19/2024 1:40 PM EST Clinical Support [place] [address] 06/19/2024 2:00 PM EST Office Visit [place] [address] Pepe Horton MD [facility] [place] [address] 08/10/2024 10:00 AM EDT Laboratory Appointment Lab [address] [address] 08/10/2024 11:20 AM EDT Office Visit [place] [address] Jovani Richardson MD [facility] [place] [address] A, Nurse Clinician None 08/20/2024 7:30 AM EDT Hospital Encounter Gastroenterology at [place] [address] Lawrence Gar MD [facility] [place] [address] 08/20/2024 7:30 AM EDT - 08/20/2024 8:15 AM EDT Surgery Gastroenterology at [place] [phone] Lawrence Gar MD [facility] [place] [address] EGD, UPPER GI ENDOSCOPY (WRVU 2.09) 11/17/2024 4:20 PM EDT Office Visit Gastroenterology at [place] [phone] Lawrence Gar MD [facility] [place] [address] Scheduled Procedures Name Priority Associated Diagnoses Date/Ti me EGD, UPPER GI ENDOSCOPY (WRVU 2.09) Sharma's esophagus with high grade dysplasia 08/20/2024 7:30 AM EDT documented as of this encounter Visit Diagnoses Not on filedocumented in this encounter Care Teams Professor Of Anthropology Relationship Specialty Start Date End Date Govind Mend[place] [address] [place] [address] PCP - General Internal Medicine 11/06/23 documented as of this encounter
--- OUTSIDE RECORDS SUMMARY | 2024-06-08 12:46 | XMS_ITS | Encounter Summary ---
[place] [address] Care Team Providers Care Jewelry Technician Name Role Phone Govind Mendes Primary Care Provider + Encounter Details Date Type Department Care Team (Late st Contact Info) Description 12/11/2023 External Results Ne[place] [address] Karol Iverson RN Social History Tobacco Use [...] EST Clinical Support [place] [address] 06/19/2024 2:00 PM EST Office Visit [place] [phone] Pepe Horton MD [facility] [place] [address] 08/10/2024 10:00 AM EDT Laboratory Appointment Lab [address] [place] [address] 08/10/2024 11:20 AM EDT Office Visit Nephrology Hypertension at [place] [address] Jovani Richardson MD [facility] [place] [address] A, Nurse Clinician None 08/20/2024 7:30 AM EDT Hospital Encounter Gastroenterology at [address]1000 Lawrence Gar MD [facility] [place] [address] 08/20/2024 7:30 AM EDT - 08/20/2024 8:15 AM EDT Surgery Gastroenterology at [place] [phone] Lawrence Gar MD [facility] [place] [address] EGD, UPPER GI ENDOSCOPY (WRVU 2.09) 11/17/2024 4:20 PM EDT Office Visit Gastroenterology at [place] [phone] Lawrence Gar MD [facility] [place] [address] Scheduled Procedures Name Priority Associated Diagnoses Date/Ti [...] on filedocumented in this encounter Care Teams Jewelry Technician Relationship Specialty Start Date End Date Govind Mendes PA [facility] [place] [address] PCP - General Internal Medicine 11/06/23 documented as of this encounter
--- OUTSIDE RECORDS SUMMARY | 2024-06-08 12:46 | XMS_ITS | Encounter Summary ---
Author Organization [facility] [place] [address] Care Team Providers Care Brake Operator Sheet Metal Name Role Phone Govind Mendes Primary Care [...] EST Clinical Support Solid [place] [address] 06/19/2024 2:00 PM EST Office Visit Solid [place] [address] Pepe Horton MD [facility] [place] [address] 08/10/2024 10:00 AM EDT Laboratory Appointment Lab [address] [place] [address] 08/10/2024 11:20 AM EDT Office Visit Nephrology Hypertension at [place] [address] Jovani Richardson MD [facility] [place] [address] A, Nurse Clinician None 08/20/2024 7:30 AM EDT Hospital Encounter Gastroenterology at [place] [address] Lawrence Gar MD [facility] [place] [address] 08/20/2024 7:30 AM EDT - 08/20/2024 8:15 AM EDT Surgery Gastroenterology at [place] [address] Lawrence Gar MD [facility] [place] [address] EGD, UPPER GI ENDOSCOPY (WRVU 2.09) 11/17/2024 4:20 PM EDT Office Visit Gastroenterology at [place] [address] Lawrence Gar MD [facility] [place] [address] Scheduled Procedures Name Priority Associated Diagnoses Date/Ti me EGD, UPPER GI ENDOSCOPY (WRVU 2.09) Sharma's esophagus with high grade dysplasia 08/20/2024 7:30 AM EDT documented as of this encounter Visit Diagnoses Not on filedocumented in this encounter Care Teams Brake Operator Sheet Metal Relationship Specialty Start Date End [place] [address] PCP - General Internal Medicine 11/06/23 documented as of this encounter
--- OUTSIDE RECORDS SUMMARY | 2024-06-08 12:46 | XMS_ITS | Encounter Summary ---
Author Organization [facility] [place] [address] Care Team Providers Care Dust Collector Name Role Phone Govind Mendes Primary Care [...] 2.09) COLONOSCOPY,SCREENING (WRVU 3.26) Lawrence Gar MD [facility] [address] [facility] Referral ID Status Reason Start Date Expiration Date Visits Re quested Visits Authorized [id number] 1 1 Encounter Details Date Type Department Care Team (Latest Contact Info) Description 11/12/2023 9:46 AM EDT - 11/12/2023 12:10 PM EDT Hospital En[place] [address] Lawrence Gar MD [facility] [address] Discharge Disposition: Home Social History Tobacco Use [...] occurs, please contact your Doctor. Please call [phone] before 8pm Mon-Fri with problems, questions or concerns. If you call after 8pm or on weekends, call the Hospital at [phone] and ask to speak to the Copy Center Associate electronic installer and the heddle machine operator will contact that person for you. When should you call for help? Call [phone] anytime you think you may need emergency [...] any problems. Where can you learn more? [facility] View your After Visit Summary and more online at [email or web address] If you would like to provide feedback about your hospital experience, please call the Office of Patient and Family Relations at . If you have received this After Visit Summary in error, please immediately return it in person to the department, or notify the [facility] Privacy Office by calling toll free at between the hours of 8AM and 5PM to arrange for our retrieval of the documents at no cost to you. Content Version: 12.2 ?? 4744-6452 [employer] Care instructions adapted under license by [facility]. If you have questions about a medical condition or this instruction, always ask your healthcare professional. [employer] disclaims any warranty or liability for your [...] the day after the procedure, use an psgd-gdi-gpnncub spray to numb your throat. Sucking on [...] occurs, please contact your Doctor. Please call [phone] before 8pm Mon-Fri with problems, questions or concerns. If you call after 8pm or on weekends, call the Hospital at [phone] and ask to speak to the Copy Center Associate electronic installer and the heddle machine operator will contact that person for you. When should you call for help? Call [phone] anytime you think you may need emergency [...] any problems. Where can you learn more? [facility] View your After Visit Summary and more online at [email or web address] If you would like to provide feedback about your hospital experience, please call the Office of Patient and Family Relations at . If you have received this After Visit Summary in error, please immediately return it in person to the department, or notify the [facility] Privacy Office by calling toll free at between the hours of 8AM and 5PM to arrange for our retrieval of the documents at no cost to you. Content Version: 12.2 ?? 2874-2245 [employer] Care instructions adapted under license by [facility]. If you have questions about a medical condition or this instruction, always ask your healthcare professional. [employer] disclaims any warranty or liability for your [...] the day after the procedure, use an puow-mtq-ccpyapt spray to numb your throat. Sucking on [...] occurs, please contact your Doctor. Please call [phone] before 8pm Mon-Fri with problems, questions or concerns. If you call after 8pm or on weekends, call the Hospital at [phone] and ask to speak to the Copy Center Associate electronic installer and the heddle machine operator will contact that person for you. When should you call for help? Call [phone] anytime you think you may need emergency [...] any problems. Where can you learn more? [facility] View your After Visit Summary and more online at [email or web address] If you would like to provide feedback about your hospital experience, please call the Office of Patient and Family Relations at . If you have received this After Visit Summary in error, please immediately return it in person to the department, or notify the [facility] Privacy Office by calling toll free at between the hours of 8AM and 5PM to arrange for our retrieval of the documents at no cost to you. Content Version: 12.2 ?? 0242-5716 [employer] Care instructions adapted under license by [facility]. If you have questions about a medical condition or this instruction, always ask your healthcare professional. [employer] disclaims any warranty or liability for your use of this information. documented in this encounter Medications at Time of Discharge Medication Sig Dispensed Refills Start Date End Date empagliflozin (Jardiance) 10 mg tablet Take 10 [...] for Sharma's ablation within next 1-2 mos. [place] rotary5 yrs. documented in this encounter H&P [...] EST Clinical Support Solid Organ Transplant at [place] [phone] 06/19/2024 2:00 PM EST Office Visit Solid Organ Transplant at [place] [phone] Pepe Horton MD [facility] [place] [address] 08/10/2024 10:00 AM EDT Laboratory Appointment Lab [address] [address] 08/10/2024 11:20 AM EDT Office Visit Nephrology Hypertension at [address] Jovani Richardson MD [facility] [place] [address] A, Nurse Clinician None 08/20/2024 7:30 AM EDT Hospital Encounter Gastroenterology at [place] [phone] Lawrence Gar MD [facility] [place] [address] 08/20/2024 7:30 AM EDT - 08/20/2024 8:15 AM EDT Surgery Gastroenterology at [place] [phone] Lawrence Gar MD [facility] [place] [address] EGD, UPPER GI ENDOSCOPY (WRVU 2.09) 11/17/2024 4:20 PM EDT Office Visit Gastroenterology at [facility] [place] [address] Lawrence Gar MD [facility] DR [place] [address] Scheduled Procedures Name Priority Associated Diagnoses Date/Ti [...] 11:23 AM EDT Colonoscopy, Remv Lesn, Snare ([id number]) 11/12/2023 10:48 AM EDT 3 year Upper Gi Endoscopy, Biopsy ([id number]) 11/12/2023 10:48 AM EDT 3 year UPPER GI ENDOSCOPY Routine 11/12/2023 10 :28 AM EDT COLONOSCOPY Routine 11/12/2023 10:27 AM EDT documented in this encounter Results * (ABNORMAL) Surgical Pathology Report (11/12/2023 11:23 AM EDT) Final Diagnosis [id number] ? Location: 4T; EA06; A The signing [...] ??Multiple levels examined. CR-PX Electronically signed by: ?Amadna HENDRICKS PhD, Shyla Verified: ??11/26/2023 14:50 ??Pathologist Performed at: ??-[facility] [place], [place] [address] Pediatric Anesthesiologist: Deana Lopez MD, AP, ??CLIA Certificate: [id number] DISCUSSION The case was reviewed at the [...] labeled B1. ??ajw(A) 11/26/2023 2:50 PM EDT [facility] GI Biopsy 11/12/2023 11:2 3 AM EDT 11/12/2023 11:23 AM EDT GI Biopsy 11/12/2023 11:2 3 AM EDT 11/12/2023 11:23 AM EDT Lawrence Gar MD PATHOLOGY/CYTOLOGY O SONIYA Performing Organization Address [facility]/ZIP Co de Phone Number [facility] [place] [address] * Specimen to Pathology (11/12/2023 11:23 AM EDT) AP Specimen 11/12/2023 11:2 3 AM EDT 11/12/2023 11:23 AM EDT Narrative [facility] - 11/12/2023 11:23 AM EDT Specimen requisition ordered. ??Separate Pathology report to follow Lawrence Gar MD PATHOLOGY/CYTOLOGY O SONIYA Performing Organization Address [facility]/ZIP Co de Phone Number [facility] [place] [address] * Specimen to Pathology (11/12/2023 11:23 AM EDT) AP Specimen 11/12/2023 11:2 3 AM EDT 11/12/2023 11:23 AM EDT Narrative [facility] - 11/12/2023 11:23 AM EDT Specimen requisition ordered. ??Separate Pathology report to follow Lawrence Gar MD PATHOLOGY/CYTOLOGY O RDALBERTINA Performing Organization Address [facility]/ZIP Co de Phone Number [facility] [place] [address] * UPPER GI ENDOSCOPY (11/12/2023 10:28 AM EDT) UPPER GI ENDOSCOPY [facility] ___ Procedure Date: 11/12/2023 10:28 AM ? Patient Name: Mathew Mendez ? Date of : 1955 ? Age: 68 ? Order #: [id number] ? Instrument Name: [id number]- [id number] ? ___ Procedure: ? Upper GI endoscopy [...] were ? examined with white light and VideoSurfm Blue Light ? Imaging from a forward [...] personally performed the entire procedure. ? Lawrence Scout Gar MD 11/12/2023 11:06:44 AM This report has been signed electronically. Number of Addenda: 0 Note Initiated On: 11/12/2023 10:28 AM PROVATION 11/12/2023 10:2 8 AM EDT Govind [facility] ORDERABLES PROVATION * COLONOSCOPY (11/12/2023 10:27 AM EDT) COLONOSCOPY [facility] ___ Procedure Date: 11/12/2023 10:27 AM ? Patient Name: Mathew Mendez ? N: [id number] ? Date of : 1955 ? Age: 68 ? Order #: [id number] ? Instrument Name: [id number]- [id number] ? ___ Procedure: ? Colonoscopy Indications: ? High risk colon cancer ? surveillance: Personal history of ? colonic polyps Providers: ? Lawrence Gar MD, Adore Wilson ? Todd Vanegas MD: ?[facility]: ? Propofol per Anesthesia Complications: ? No [...] ? was evaluated using the BBPS ? ([place] Bowel Preparation Scale) ? with scores of: [...] CRNA) documented in this encounter Care Teams Dust Collector Relationship Specialty Start Date End Date Govind [place] [address] PCP - General Internal Medicine 11/06/23 documented as of this encounter
--- OUTSIDE RECORDS SUMMARY | 2024-06-08 12:46 | XMS_ITS | Encounter Summary ---
[place] [address] Care Team Providers Care Low Vision Therapist Name Role Phone Slade Tran MD Primary Care Provider [phone] Encounter Details Date Type Department Care Team (Late st Contact Info) Description 09/30/2023 Orders Only Nephrology [place] [phone] Karol Iverson, LOYD CKD (chronic kidney disease) [...] Clinical Support [place] [address] 06/19/2024 2:00 PM EST Office Visit [place] [phone] Pepe Horton MD [facility] [place] [address] 08/10/2024 10:00 AM EDT Laboratory Appointment Lab [address] [place] [address] 08/10/2024 11:20 AM EDT Office Visit Nephrology Hypertension at [place] [address] Jovani Richardson MD [facility] [place] [address] A, Nurse Clinician None 08/20/2024 7:30 AM EDT Hospital Encounter Gastroenterology at [place] [address] Lawrence Gar MD [facility] [place] [address] 08/20/2024 7:30 AM EDT - 08/20/2024 8:15 AM EDT Surgery Gastroenterology at [address] Lawrence Gar MD [facility] [place] [address] EGD, UPPER GI ENDOSCOPY (WRVU 2.09) 11/17/2024 4:20 PM EDT Office Visit Gastroenterology at [place] [phone] Lawrence Gar MD [facility] [address] Scheduled Procedures Name Priority Associated Diagnoses Date/Ti me EGD, UPPER GI ENDOSCOPY (WRVU 2.09) Sharma's esophagus with high grade dysplasia 08/20/2024 7:30 AM EDT documented as of this encounter Results * (ABNORMAL) Protein/Creatinine Ratio, urine (11/06/2023 7:48 AM EDT) Creatinine, Urine 69 mg/dL [facility] Protein, Urine 179(H) 0 - 12 mg/dL [facility] Protein / Creatinine Ratio, Urine 2.6 ratio [facility] Urine 11/06/2023 7:48 AM EDT 11/06/2023 7:58 AM EDT Narrative Resulting Agency Comment Spec In Lab Jovani Richardson MD URINE ORDERABLES [facility] [place] [address] * (ABNORMAL) PTH (11/06/2023 7:37 AM EDT) Parathyroid Hormone 113(H) 15 - 65 pg/mL [facility] Blood 11/06/2023 7:37 AM EDT 11/06/2023 7:49 AM EDT Narrative Resulting Agency Comment Spec In Lab Jovani Richardson MD CHEMISTRY ORDERABLES Performing Organization Address City/[facility]/ZIP Co de Phone Number [facility] [place] [address] * Uric acid (11/06/2023 7:37 AM EDT) Uric Acid 7.4 3.5 - 8.5 mg/dL [facility] Blood 11/06/2023 7:37 AM EDT 11/06/2023 7:49 AM EDT Narrative Resulting Agency Comment Spec In Lab Jovani Richardson MD CHEMISTRY ORDERABLES Performing Organization Address City/[facility]/ZIP Co de Phone Number [facility] [place] [address] * Albumin Level (11/06/2023 7:37 AM EDT) Albumin 4.1 3.2 - 5.2 g/dL [facility] Blood 11/06/2023 7:37 AM EDT 11/06/2023 7:49 AM EDT Narrative Resulting Agency Comment Spec In Lab Jovani Richardson MD CHEMISTRY ORDERABLES Performing Organization Address City/[facility] Co de Phone Number [facility] [place] [address] * (ABNORMAL) Phosphorus (11/06/2023 7:37 AM EDT) Phosphorus 4.7(H) 2.5 - 4.5 mg/dL [facility] Blood 11/06/2023 7:37 AM EDT 11/06/2023 7:49 AM EDT Narrative Resulting Agency Comment Spec In Lab Jovani Richardson MD CHEMISTRY ORDERABLES Performing Organization Address [facility] Co de Phone Number [facility] [place] [address] * (ABNORMAL) Basic Metabolic Panel (non-fasting) (11/06/2023 7:37 AM EDT) Glucose 93 65 - 199 mg/dL [facility] Comment:Diabetes: >=200 mg/d L plus symptoms Blood Urea Nitrogen 56(H) 10 - 20 mg/dL [facility] Creatinine 3.08(H) 0.80 - 1.50 mg/dL [facility] Sodium 142 135 - 145 mmol/L [facility] Potassium 5.2(H) 3.5 - 5.0 mmol/L [facility] Comment: Please note: ??Patients with WBC >100,000 may have falsely elevated Potassium levels. ??For accurate Potassium quantification in these patients send serum separator tube (gold top) for subsequent determinations. ??Contact the Clinical Chemistry Laboratory if there are any questions. Chloride 108(H) 98 - 107 mmol/L [facility] Carbon Dioxide 21(L) 22 - 31 mmol/L [facility] Anion Gap 13 5 - 15 mmol/L [facility] Calcium 9.0 8.5 - 10.5 mg/dL [facility] Est Glomerular Filtration Rate 21(L) >=60 mL/min/1. 73 m?? [facility] Comment: This patient's [...] In Lab Jovani Richardson MD CHEMISTRY ORDERABLES [facility] [place] [address] documented in this encounter Visit Diagnoses Diagnosis CKD (chronic kidney disease) stage 4, GFR 15-29 ml/min Chronic kidney disease, Stage IV (severe) Sharma's esophagus with high grade dysplasia Sharma's esophagus documented in this encounter Care Teams Low Vision Therapist Relationship Specialty Start Date End Date Slade Tran MD PCP - General Family Medicine 06/19/22 11/05/23 documented as of this encounter
--- OUTSIDE RECORDS SUMMARY | 2024-06-08 12:46 | XMS_ITS | Encounter Summary ---
[place] [address] Care Team Providers Care Welding Machine Setter Name Role Phone Govind Mendes Primary Care Provider + Encounter Details Date Type Department Care Team (Late st Contact Info) Description 12/20/2023 Telephone Nephrology [place] [address] Lizet Hayward RN Social History Tobacco Use [...] 12/20/2023 1:09 PM EDT S/O: Staff at [facility] lab called with critical creatinine of 3.8 This is an improvement from patient's previous blood draw on 12/10/23. P: Results sent to Dr. Richardson for review. documented in this encounter Plan of Treatment Upcoming Encounters Date Type Department Care Team (Latest Contact Info) Description 06/19/2024 1:40 PM EST Clinical Support Solid Organ Transplant at [place] [phone] 06/19/2024 2:00 PM EST Office [place] [address] Pepe Horton MD [facility] [place] [address] 08/10/2024 10:00 AM EDT Laboratory Appointment Lab [address] [address] 08/10/2024 11:20 AM EDT Office Visit Nephrology Hypertension at [place] [address] Jovani Richardson MD [facility] [place] [address] A, Nurse Clinician None 08/20/2024 7:30 AM EDT Hospital Encounter Gastroenterology at [place] [address] Lawrence Gar MD [facility] [place] [address] 08/20/2024 7:30 AM EDT - 08/20/2024 8:15 AM EDT Surgery Gastroenterology at [place] [address] Lawrence Gar MD [facility] [place] [address] EGD, UPPER GI ENDOSCOPY (WRVU 2.09) 11/17/2024 4:20 PM EDT Office Visit Gastroenterology at [place] [phone] Lawrence Gar MD [facility] [place] [address] Scheduled Procedures Name Priority Associated Diagnoses Date/Ti me EGD, UPPER GI ENDOSCOPY (WRVU 2.09) Sharma's esophagus with high grade dysplasia 08/20/2024 7:30 AM EDT documented as of this encounter Visit Diagnoses Not on filedocumented in this encounter Care Teams Welding Machine Setter Relationship Specialty Start Date End Date Govind Mendes PA [facility] [place] [address] PCP - General Internal Medicine 11/06/23 documented as of this encounter
--- OUTSIDE RECORDS SUMMARY | 2024-06-08 12:46 | XMS_ITS | Encounter Summary ---
[place] [address] Care Team Providers Care Home Delivery Driver Name Role Phone Govind Mendes Primary Care Provider + Encounter Details Date Type Department Care Team (Late st Contact Info) Description 12/11/2023 Telephone Nephrology [place] [address] Karol Iverson, LOYD Social History Tobacco Use [...] EST Clinical Support [place] [address] 06/19/2024 2:00 PM EST Office Visit [place] [address] Pepe Horton MD [facility] [place] [address] 08/10/2024 10:00 AM EDT Laboratory Appointment Lab [address] [address] 08/10/2024 11:20 AM EDT Office Visit Ne[place] [address] Jovani Richardson MD [facility] [place] [address] A, Nurse Clinician None 08/20/2024 7:30 AM EDT Hospital Encounter Gastroenterology at [place] [phone] Lawrence Gar MD [facility] [place] [address] 08/20/2024 7:30 AM EDT - 08/20/2024 8:15 AM EDT Surgery Gastroenterology at [place] [phone] Lawrence Gar MD [facility] [place] [address] EGD, UPPER GI ENDOSCOPY (WRVU 2.09) 11/17/2024 4:20 PM EDT Office Visit Gastroenterology at [place] [phone] Lawrence Gar MD [facility] [place] [address] Scheduled Procedures Name Priority Associated Diagnoses Date/Ti me EGD, UPPER GI ENDOSCOPY (WRVU 2.09) Sharma's esophagus with high grade dysplasia 08/20/2024 7:30 AM EDT documented as of this encounter Visit Diagnoses Not on filedocumented in this encounter Care Teams Home Delivery Driver Relationship Specialty Start Date End Date Govind Mendes [place] [address] [place] [address] PCP - General Internal Medicine 11/06/23 documented as of this encounter
--- OUTSIDE RECORDS SUMMARY | 2024-06-08 12:46 | XMS_ITS | Encounter Summary ---
Author Organization [facility] [place] [address] Care Team Providers Care Construction Administrative Assistant Name Role Phone Govind Mendes Primary Care [...] 2.09) COLONOSCOPY,SCREENING (WRVU 3.26) Lawrence Gar MD [facility] [place] [address] [facility] Referral ID Status Reason Start Date Expiration Date Visits Re quested Visits Authorized [id number] 1 1 Encounter Details Date Type Department Care Team (Late st Contact Info) Description 11/12/2023 11:00 AM EDT - 11/12/2023 12:00 PM EDT Surgery [place] [address] Lawrence Gar MD [facility] [place] [address] EGD WITH BIOPSY (WRVU 2.66) Social History Tobacco Use Types Packs/Day Years [...] occurs, please contact your Doctor. Please call [phone] before 8pm Mon-Fri with problems, questions or concerns. If you call after 8pm or on weekends, call the Hospital at [phone] and ask to speak to the Supervisor Winding Department container packer operator and the furnace operator will contact that person for you. When should you call for help? Call [phone] anytime you think you may need emergency [...] any problems. Where can you learn more? [facility] View your After Visit Summary and more online at [email or web address] If you would like to provide feedback about your hospital experience, please call the Office of Patient and Family Relations at . If you have received this After Visit Summary in error, please immediately return it in person to the department, or notify the [facility] Privacy Office by calling toll free at between the hours of 8AM and 5PM to arrange for our retrieval of the documents at no cost to you. Content Version: 12.2 ?? [phone] [employer]. Care instructions adapted under license by [facility]. If you have questions about a medical condition or this instruction, always ask your healthcare professional. [employer] disclaims any warranty or liability for your [...] the day after the procedure, use an cthk-jjk-yyenuwm spray to numb your throat. Sucking on [...] occurs, please contact your Doctor. Please call [phone] before 8pm Mon-Fri with problems, questions or concerns. If you call after 8pm or on weekends, call the Hospital at [phone] and ask to speak to the Supervisor Winding Department container packer operator and the furnace operator will contact that person for you. When should you call for help? Call 110 anytime you think you may need emergency [...] any problems. Where can you learn more? [facility] View your After Visit Summary and more online at [email or web address] If you would like to provide feedback about your hospital experience, please call the Office of Patient and Family Relations at . If you have received this After Visit Summary in error, please immediately return it in person to the department, or notify the [facility] Privacy Office by calling toll free at between the hours of 8AM and 5PM to arrange for our retrieval of the documents at no cost to you. Content Version: 12.2 ?? 4844-1357 [employer]. Care instructions adapted under license by [facility]. If you have questions about a medical condition or this instruction, always ask your healthcare professional. [employer] disclaims any warranty or liability for your [...] the day after the procedure, use an yqgx-tyh-gfvuixk spray to numb your throat. Sucking on [...] occurs, please contact your Doctor. Please call [phone] before 8pm Mon-Fri with problems, questions or concerns. If you call after 8pm or on weekends, call the Hospital at [phone] and ask to speak to the Supervisor Winding Department container packer operator and the furnace operator will contact that person for you. When should you call for help? Call [phone] anytime you think you may need emergency [...] any problems. Where can you learn more? [facility] View your After Visit Summary and more online at [email or web address] If you would like to provide feedback about your hospital experience, please call the Office of Patient and Family Relations at . If you have received this After Visit Summary in error, please immediately return it in person to the department, or notify the [facility] Privacy Office by calling toll free at between the hours of 8AM and 5PM to arrange for our retrieval of the documents at no cost to you. Content Version: 12.2 ?? [phone] [employer]. Care instructions adapted under license by [facility]. If you have questions about a medical condition or this instruction, always ask your healthcare professional. [employer] disclaims any warranty or liability for your [...] for Sharma's ablation within next 1-2 mos. [place] rotary5 yrs. documented in this encounter H&P [...] EST Clinical Support [place] [address] 06/19/2024 2:00 PM EST Office Visit Solid Organ Transplant at [place] [phone] Pepe Horton MD [facility] [place] [address] 08/10/2024 10:00 AM EDT Laboratory Appointment Lab [address] [phone] 08/10/2024 11:20 AM EDT Office Visit Nephrology Hypertension at [place] [phone] Jovani Richardson MD [facility] [place] [address] A, Nurse Clinician None 08/20/2024 7:30 AM EDT Hospital Encounter Gastroenterology at [place] [phone] Lawrence Gar MD [facility] [place] [address] 08/20/2024 7:30 AM EDT - 08/20/2024 8:15 AM EDT Surgery Gastroenterology at [place] [phone] Lawrence Gar MD [facility] [place] [address] EGD, UPPER GI ENDOSCOPY (WRVU 2.09) 11/17/2024 4:20 PM EDT Office Visit Gastroenterology at [facility] [place] [address] Lawrence Gar MD [facility] [place] [address] Scheduled Procedures Name Priority Associated Diagnoses Date/Ti [...] 11:23 AM EDT Colonoscopy, Remv Lesn, Snare ([id number]) 11/12/2023 10:48 AM EDT 3 year Upper Gi Endoscopy, Biopsy ([id number]) 11/12/2023 10:48 AM EDT 3 year UPPER GI ENDOSCOPY Routine 11/12/2023 10 :28 AM EDT COLONOSCOPY Routine 11/12/2023 10:27 AM EDT documented in this encounter Results * (ABNORMAL) Surgical Pathology Report (11/12/2023 11:23 AM EDT) Final Diagnosis [id number] ? Location: 4T; EA06; A The signing [...] Shyla Verified: ??11/26/2023 14:50 ??Pathologist Performed at: ??-[facility] [place] [place] Dept. of Pathology, [place] [address] Castings Drafter: Deana Lopez MD, FCAP, ??CLIA Certificate: [id number] DISCUSSION The case was reviewed at the [...] labeled B1. ??ajw(A) 11/26/2023 2:50 PM EDT [facility] GI Biopsy 11/12/2023 11:2 3 AM EDT 11/12/2023 11:23 AM EDT GI Biopsy 11/12/2023 11:2 3 AM EDT 11/12/2023 11:23 AM EDT Lawrence Gar MD PATHOLOGY/CYTOLOGY O SONIYA Performing Organization Address [facility]/ZIP Co de Phone Number [facility] [place] [address] * Specimen to Pathology (11/12/2023 11:23 AM EDT) AP Specimen 11/12/2023 11:2 3 AM EDT 11/12/2023 11:23 AM EDT Narrative [facility] - 11/12/2023 11:23 AM EDT Specimen requisition ordered. ??Separate Pathology report to follow Lawrence Gar MD PATHOLOGY/CYTOLOGY O SONIYA Performing Organization Address [facility] Co de Phone Number [facility] [place] [address] * Specimen to Pathology (11/12/2023 11:23 AM EDT) AP Specimen 11/12/2023 11:2 3 AM EDT 11/12/2023 11:23 AM EDT Narrative [facility] - 11/12/2023 11:23 AM EDT Specimen requisition ordered. ??Separate Pathology report to follow Lawrence Gar MD PATHOLOGY/CYTOLOGY O SONIYA Performing Organization Address [facility] Co de Phone Number [facility] [place] [address] * UPPER GI ENDOSCOPY (11/12/2023 10:28 AM EDT) UPPER GI ENDOSCOPY [facility] Endoscopy ___ Procedure Date: 11/12/2023 10:28 AM ? Patient Name: Mathew Mendez ? Date of : 1955 ? Age: 68 ? Order #: [id number] ? Instrument Name: [id number]- [id number] ? ___ Procedure: ? Upper GI endoscopy Indications: ? Follow-up of Sharma's esophagus Providers: ? Lawrence Gar MD, Adore Wilson ? Todd Vanegas MD: ?Govind Mendes Medicines: ? Propofol per Anesthesia Complications: ? [...] were ? examined with white light and [place] Blue Light ? Imaging from a forward [...] * COLONOSCOPY (11/12/2023 10:27 AM EDT) COLONOSCOPY [facility] Endoscopy ___ Procedure Date: 11/12/2023 10:27 AM ? Patient Name: Mathew Mendez ? Date of : 1955 ? Age: 68 ? Order #: [id number] ? Instrument Name: [id number]- [id number] ? ___ Procedure: ? Colonoscopy Indications: ? High risk colon cancer ? surveillance: Personal history of ? colonic polyps Providers: ? Lawrence Gar MD, Adore Wilson ? Todd Vanegas MD: ?Slade Tran [facility]: ? Propofol per Anesthesia Complications: ? No [...] ? was evaluated using the BBPS ? (Milton Bowel Preparation Scale) ? with scores of: [...] CRNA) documented in this encounter Care Teams Construction Administrative Assistant Relationship Specialty Start Date End Date Govind Mendes [place] [address] [place] [address] PCP - General Internal Medicine 11/06/23 documented as of this encounter
--- OUTSIDE RECORDS SUMMARY | 2024-06-08 12:46 | XMS_ITS | Encounter Summary ---
[place] [address] Care Team Providers Care Aircraft Instrument Engineer Name Role Phone Govind Mendes Primary Care Provider + Encounter Details Date Type Department Care Team (Late st Contact Info) Description 11/26/2023 Telephone [place] [address] Lizet Hayward RN Social History Tobacco Use [...] EST Clinical Support Solid Organ Transplant at [place] [phone] 06/19/2024 2:00 PM EST Office [place] [address] Pepe Horton MD [facility] [place] [address] 08/10/2024 10:00 AM EDT Laboratory Appointment Lab [address] [phone] 08/10/2024 11:20 AM EDT Office Visit Ne[place] [address] Jovani Richardson MD [facility] [place] [address] A, Nurse Clinician None 08/20/2024 7:30 AM EDT Hospital Encounter Gastroenterology at [place] [phone] Lawrence Gar MD [facility] [place] [address] 08/20/2024 7:30 AM EDT - 08/20/2024 8:15 AM EDT [place] [address] Lawrence Gar MD [facility] [place] [address] EGD, UPPER GI ENDOSCOPY (WRVU 2.09) 11/17/2024 4:20 PM EDT Office [place] [address] Lawrence Gar MD [facility] [place] [address] Scheduled Procedures Name Priority Associated Diagnoses Date/Ti me EGD, UPPER GI ENDOSCOPY (WRVU 2.09) Sharma's esophagus with high grade dysplasia 08/20/2024 7:30 AM EDT documented as of this encounter Visit Diagnoses Not on filedocumented in this encounter Care Teams Aircraft Instrument Engineer Relationship Specialty Start Date End Date Govind Mendes PA [facility] [place] [address] PCP - General Internal Medicine 11/06/23 documented as of this encounter
--- OUTSIDE RECORDS SUMMARY | 2024-06-08 12:46 | XMS_ITS | Encounter Summary ---
Author Organization [facility] Address [facility] [place] [address] Care Team Providers Care Supplier Relationship Director Name Role Phone Govind Mendes Primary Care [...] EST Clinical Support [place] [address] 06/19/2024 2:00 PM EST Office Visit [place] [address] Pepe Horton MD [facility] [place] [address] 08/10/2024 10:00 AM EDT Laboratory Appointment Lab [address] [place] [address] 08/10/2024 11:20 AM EDT Office Visit Nephrology Hypertension at [place] [address] Jovani Richardson MD [facility] [place] [place] [address] A, Nurse Clinician None 08/20/2024 7:30 AM EDT Hospital Encounter Gastroenterology at [place] [address] Lawrence Gar MD [facility] [place] [address] 08/20/2024 7:30 AM EDT - 08/20/2024 8:15 AM EDT Surgery Gastroenterology at [place] [address] Lawrence Gar MD [facility] [place] [address] EGD, UPPER GI ENDOSCOPY (WRVU 2.09) 11/17/2024 4:20 PM EDT Office Visit Gastroenterology at [place] [address] Lawrence Gar MD [facility] [place] [address] Scheduled Procedures Name Priority Associated Diagnoses Date/Ti me EGD, UPPER GI ENDOSCOPY (WRVU 2.09) Sharma's esophagus with high grade dysplasia 08/20/2024 7:30 AM EDT documented as of this encounter Visit Diagnoses Not on filedocumented in this encounter Care Teams Supplier Relationship Director Relationship Specialty Start Date End [place] [address] PCP - General Internal Medicine 11/06/23 documented as of this encounter
--- OUTSIDE RECORDS SUMMARY | 2024-06-08 12:46 | XMS_ITS | Encounter Summary ---
Author Organization [facility] [place] [address] Care Team Providers Care Implementation Architect Name Role Phone Govind Mendes Primary [...] COLONOSCOPY,SCREENING (WRVU 3.26) Lawrence Gar MD [facility] [place] [address] [facility] Referral ID Status Reason Start Date Expiration Date Visits Re quested Visits Authorized [id number] 1 1 Encounter Details Date Type Department Care Team (Late st Contact Info) Description 11/12/2023 10:46 AM EDT Anesthesia [place] [address] Mathew Tripathi MD [facility] [place] [address] Anesthesia Record Procedure Summary Procedure Name Responsible [...] Type Details Placement Removal PIV 11/12/23; 1018; uazc-wed-woadmp catheter system; 22 gauge; median vein (underside [...] Procedure Summary Date: 11/12/23 Room / Location: [facility] 3 / [facility] Anesthesia Start: 1046 Anesthesia Stop: 1130 Procedures: EGD WITH BIOPSY (WRVU 2.39) (Trunk) COLONOSCOPY, POLYPECTOMY, REMOVAL LESION BY SNARE (WRVU 4.57) (Trunk) Diagnosis: (3 year) Surgeons: Lawrence Gar MD Responsible Provider: Mathew Tripathi MD Anesthesia Type: MAC ASA Status: 3 All Anesthesia Providers: Anesthesiologist: Mathew Tripathi MD STEAM OVEN OPERATOR: Dominguez Cullen CRNA Vitals Value Taken Time BP 126/84 11/12/23 1158 Temp Pulse Resp 15 11/12/23 1158 SpO2 97 % 11/12/23 1200 Pain Level 0 11/12/23 1158 Vitals shown include unfiled device data. Patient Location: PACU/[facility] Level of Consciousness: Awake and Alert Pain [...] 4.67) performed by Lawrence Gar MD at [facility] ??? PRO UPPER GI ENDOSCOPY, BIOPSY N/A 10/20/2020 EGD WITH BIOPSY (WRVU 2.49) performed by Lawrence Gar MD at [facility] Social History Tobacco Use ??? [...] risks discussed with patient. Plan discussed with STEAM OVEN OPERATOR. Anesthesia Screening documented in this encounter Plan of Treatment Upcoming Encounters Date Type Department Care Team (Latest Contact Info) Description 06/19/2024 1:40 PM EST Clinical Support [place] [address] 06/19/2024 2:00 PM EST Office Visit Solid Organ Transplant at [place] [phone] Pepe Horton MD [facility] [place] [address] 08/10/2024 10:00 AM EDT Laboratory Appointment Lab [address] [address] 08/10/2024 11:20 AM EDT Office Visit Nephrology Hypertension at [place] [phone] Jovani Richardson MD [facility] [place] [address] A, Nurse Clinician None 08/20/2024 7:30 AM EDT Hospital Encounter Gastroenterology at [place] [phone] Lawrence Gar MD [facility] [place] [address] 08/20/2024 7:30 AM EDT - 08/20/2024 8:15 AM EDT Surgery Gastroenterology at [place] [phone] Lawrence Gar MD [facility] [place] [address] EGD, UPPER GI ENDOSCOPY (WRVU 2.09) 11/17/2024 4:20 PM EDT Office Visit Gastroenterology at [facility] [place] [address] Lawrence Gar MD [facility] DR GASTROENTEROLOG [place] [address] Scheduled Procedures Name Priority Associated Diagnoses Date/Ti [...] CONTINUOUS, Starting on Sat11/12/23 at 1030, Until 11/12/23 at 1204, Endoscopy (Day of Procedure) Restarted 11/12/2023 10:51 AM EDT New Bag 11/12/2023 10:30 AM EDT 100 mL/hr 100 mL/hr lidocaine (pf) (Xylocaine) (20 mg/mL) 2% injection syringe Intravenous, PRN, Starting on e 11/12/23 at 1051, Until 11/12/23 at 1130, Anesthesia Intra-op, Routine Given 11/12/2023 10:51 AM EDT 90 mg PHENYLephrine in NS (PF) (CIARAN-SYNEPHRINE) 0.8 mg/10 mL (80 mcg/mL) multi-dose injection Syringe Intravenous, PRN, Starting on e 11/12/23 at 1112, Until 11/12/23 at 1130, Anesthesia Intra-op, Routine Given 11/12/2023 11:12 AM EDT 80 mcg propofoL (Diprivan) (10 mg/mL) infusion Intravenous, CONTINUOUS PRN, Starting on 11/12/23 at 1051, Until Tu11/12/23 at 1130, Anesthesia Intra-op, Routine Rate/Dose Change [...] mg documented in this encounter Care Teams Implementation Architect Relationship Specialty Start Date End Date Govind Mendes [place] [facility] [place] [address] PCP - General Internal Medicine 11/06/23 documented as of this encounter
--- OUTSIDE RECORDS SUMMARY | 2024-06-08 12:46 | XMS_ITS | Encounter Summary ---
Author Organization [facility] [place] [address] Care Team Providers Care Advanced Practice Professional Name Role Phone Govind Mendes Primary Care Provider + Encounter Details Date Type Department Care Team (Late st Contact Info) Description 11/06/2023 Trans[place] [phone] Govind Mendes PA [address] [place] [address] [place] [address] Secondary hyperparathyroidism, non-renal Social History [...] EST Clinical Support [place] [address] 06/19/2024 2:00 PM EST Office [place] [address] Pepe Horton MD [facility] [place] [address] 08/10/2024 10:00 AM EDT Laboratory Appointment Lab [address] [place] [address] 08/10/2024 11:20 AM EDT Office Visit Nephrology Hypertension at [place] [address] Jovani Richardson MD [facility] [place] [address] A, Nurse Clinician None 08/20/2024 7:30 AM EDT Hospital Encounter Gastroenterology at [place] [address] Lawrence Gar MD [facility] [place] [address] 08/20/2024 7:30 AM EDT - 08/20/2024 8:15 AM EDT Surgery Gastroenterology at [place] [address] Lawrence Gar MD [facility] [place] [address] EGD, UPPER GI ENDOSCOPY (WRVU 2.09) 11/17/2024 4:20 PM EDT Office Visit Gastroenterology at [place] [phone] Lawrence Gar MD [facility] [place] [address] Scheduled Orders Name Type Priority Associated Diagnoses [...] esophagus documented in this encounter Care Teams Advanced Practice Professional Relationship Specialty Start Date End Date Govind Mendes [place] [place] [address] PCP - General Internal Medicine 11/06/23 documented as of this encounter
--- OUTSIDE RECORDS SUMMARY | 2024-06-08 12:46 | XMS_ITS | Encounter Summary ---
[place] [address] Care Team Providers Care Strand Galvanizer Name Role Phone Slade Tran MD Primary Care Provider Encounter Details Date Type Department Care Team (Late st Contact Info) Description 09/26/2023 Telephone Nephrology [place] [address] Karol Iverson RN Social History Tobacco Use [...] EST Clinical Support Solid Organ Transplant at [place] [phone] 06/19/2024 2:00 PM EST Office Visit Solid Organ Transplant at [place] [phone] Pepe Horton MD [facility] [place] [address] 08/10/2024 10:00 AM EDT Laboratory Appointment Lab [place] [phone] 08/10/2024 11:20 AM EDT Office Visit [place] [address] Jovani Richardson MD [facility] [place] [address] A, Nurse Clinician None 08/20/2024 7:30 AM EDT Hospital Encounter Gastroenterology at [place] [phone] Lawrence Gar MD [facility] [place] [address] 08/20/2024 7:30 AM EDT - 08/20/2024 8:15 AM EDT Surgery Gastroenterology at [place] [phone] Lawrence Gar MD [facility] [place] [address] EGD, UPPER GI ENDOSCOPY (WRVU 2.09) 11/17/2024 4:20 PM EDT Office Visit [place] [address] Lawrence Gar MD [facility] [place] [address] Scheduled Procedures Name Priority Associated Diagnoses Date/Ti me EGD, UPPER GI ENDOSCOPY (WRVU 2.09) Sharma's esophagus with high grade dysplasia 08/20/2024 7:30 AM EDT documented as of this encounter Visit Diagnoses Not on filedocumented in this encounter Care Teams Strand Galvanizer Relationship Specialty Start Date End Date Slade Tran MD PCP - General Family Medicine 06/19/22 11/05/23 documented as of this encounter
--- OUTSIDE RECORDS SUMMARY | 2024-06-08 12:46 | XMS_ITS | Encounter Summary ---
Author Organization [facility] Address [facility] [place] [address] Care Team Providers Care Service Assistant Name Role Phone Govind Mendes Primary [...] EST Clinical [place] [address] 06/19/2024 2:00 PM EST Office [place] [address] Pepe Horton MD [facility] [place] [address] 08/10/2024 10:00 AM EDT Laboratory Appointment Lab [address] [place] [address] 08/10/2024 11:20 AM EDT Office Visit Nephrology Hypertension at [place] [address] Jovani Richardson MD [facility] [place] [address] A, Nurse Clinician None 08/20/2024 7:30 AM EDT Hospital Encounter Gastroenterology at [place] [address] Lawrence Gar MD [facility] [place] [place] [address] 08/20/2024 7:30 AM EDT - 08/20/2024 8:15 AM EDT Surgery Gastroenterology at [place] [address] Lawrence Gar MD [facility] [place] [place] [address] EGD, UPPER GI ENDOSCOPY (WRVU 2.09) 11/17/2024 4:20 PM EDT Office Visit Gastroenterology at [place] [address] Lawrence Gar MD [facility] [place] [place] [address] Scheduled Procedures Name Priority Associated Diagnoses Date/Ti me EGD, UPPER GI ENDOSCOPY (WRVU 2.09) Sharma's esophagus with high grade dysplasia 08/20/2024 7:30 AM EDT documented as of this encounter Visit Diagnoses Not on filedocumented in this encounter Care Teams Service Assistant Relationship Specialty Start Date End [place] [address] PCP - General Internal Medicine 11/06/23 documented as of this encounter
--- OUTSIDE RECORDS SUMMARY | 2024-06-08 12:46 | XMS_ITS | Encounter Summary ---
[place] [address] Care Team Providers Care Workers Compensation Claims Specialist Name Role Phone Govind Mendes Primary Care Provider + Encounter Details Date Type Department Care Team (Late st Contact Info) Description 12/02/2023 Telephone [place] [address] Nehal Ferrara Social History Tobacco Use Types [...] - 12/02/2023 8:21 AM EDT Mathew Mendez [id number] Diagnosis/Indication: barretts Please review patient chart to [...] your procedure. Who will likely be your bung driver for the procedure? *Please Verify the [...] EST Clinical Support [place] [address] 06/19/2024 2:00 PM EST Office Visit [place] [address] Pepe Horton MD [facility] [place] [address] 08/10/2024 10:00 AM EDT Laboratory Appointment Lab [address] [place] [address] 08/10/2024 11:20 AM EDT Office Visit Nephrology [place] [phone] Jovani Richardson MD [facility] [place] [address] A, Nurse Clinician None 08/20/2024 7:30 AM EDT Hospital Encounter [place] [address] Lawrence Gar MD [facility] [place] [address] 08/20/2024 7:30 AM EDT - 08/20/2024 8:15 AM EDT Surgery [place] [address] Lawrence Gar MD [facility] [place] [address] EGD, UPPER GI ENDOSCOPY (WRVU 2.09) 11/17/2024 4:20 PM EDT Office Visit [place] [address] Lawrence Gar MD [facility] [place] [address] Scheduled Procedures Name Priority Associated Diagnoses Date/Ti me EGD, UPPER GI ENDOSCOPY (WRVU 2.09) Sharma's esophagus with high grade dysplasia 08/20/2024 7:30 AM EDT documented as of this encounter Visit Diagnoses Not on filedocumented in this encounter Care Teams Workers Compensation Claims Specialist Relationship Specialty Start Date End Date Govind Mendes PA [facility] [place] [address] PCP - General Internal Medicine 11/06/23 documented as of this encounter
--- OUTSIDE RECORDS SUMMARY | 2024-06-08 12:46 | XMS_ITS | Encounter Summary ---
Author Organization [facility] Address [facility] [place] [address] Care Team Providers Care Crew Dispatcher Name Role Phone Govind Mendes Primary Care Provider + Encounter Details Date Type Department Care Team (Latest Contact Info) Description 11/06/2023 8:00 AM EDT Office Visit Neph[place] [address] Jovani Richardson MD [facility] [place] [address] A, Nurse Clinician None CKD (chronic kidney [...] feeling well. Please call. Lizet Hayward MBA, night clerk Kidney Disease Nurse Clinician [facility] Nephrology documented in this encounter Progress Notes * Lizet Hayward RN - 11/06/2023 8:00 AM EDT [facility] Nephrology Clinic [address] [place] [address] Reason for Clinic Visit: Systems Review and [...] need one but it is an option. MD/GREENHOUSE INSTRUCTOR A/P: Cr stable. Risk factor modification as [...] body to make more red blood cells. MD/GREENHOUSE INSTRUCTOR A/P: will start aranesp when hgb falls [...] may be too high of a dose. MD/GREENHOUSE INSTRUCTOR A/P: increase lisinopril to 20mg daily Problem: Proteinuria Prot/Cre Ratio (ratio) Date Value 11/06/2023 2.6 Goal: <0.2mg/mg RN Notes: Increase Lisinopril to 20mg daily MD/GREENHOUSE INSTRUCTOR A/P: increase lisinopril, continue SGLT-2i Problem: Bone [...] carbonate Goal: 8.5-10.5mg/dl RN Notes: No changes MD/GREENHOUSE INSTRUCTOR A/P: continue calcitriol Problem: Nutrition Albumin (g/dL) Date Value 11/06/2023 4.1 08/30/2023 4.4 01/21/2023 4.3 Goal: >/= 4.0 gm/dl Body mass index is 26.49 kg/m??. Goal: 20-25 kg/m2 RN Notes: Encouraged healthy eating MD/GREENHOUSE INSTRUCTOR A/P: Problem: Dyslipidemia No results found for: LDLCHOL Goal: <100 mg/dl No results found for: TRIG Goal: <150 mg/dl not on statin not on ezetimibe RN Notes: No changes MD/GREENHOUSE INSTRUCTOR A/P: defer lipid management to PCP Return to CKD clinic: 3 months documented in this encounter Plan of Treatment Upcoming Encounters Date Type Department Care Team (Latest Contact Info) Description 06/19/2024 1:40 PM EST Clinical Support [place] [address] 06/19/2024 2:00 PM EST Office Visit Solid Organ Transplant at [place] [phone] Pepe Horton MD [facility] [place] [address] 08/10/2024 10:00 AM EDT Laboratory Appointment Lab [address] [place] [address] 08/10/2024 11:20 AM EDT Office Visit Nephrology Hypertension at [place] [address] Jovani Richardson MD [facility] [place] [address] A, Nurse Clinician None 08/20/2024 7:30 AM EDT Hospital Encounter Gastroenterology at [place] [phone] Lawrence Gar MD [facility] [place] [address] 08/20/2024 7:30 AM EDT - 08/20/2024 8:15 AM EDT Surgery Gastroenterology at [place] [phone] Lawrence Gar MD [facility] [place] [address] EGD, UPPER GI ENDOSCOPY (WRVU 2.09) 11/17/2024 4:20 PM EDT Office [place] [address] Lawrence Gar MD [facility] [place] [address] Scheduled Orders Name Type Priority Associated Diagnoses [...] esophagus documented in this encounter Care Teams Crew Dispatcher Relationship Specialty Start Date End Date Govind [place] [address] PCP - General Internal Medicine 11/06/23 documented as of this encounter
--- OUTSIDE RECORDS SUMMARY | 2024-06-08 12:46 | XMS_ITS | Encounter Summary ---
Author Organization [facility] [place] [address] Care Team Providers Care Medical Staff Services Coordinator Name Role Phone Govind Mendes Primary Care Provider + Encounter Details Date Type Department Care Team (Latest Contact Info) Description 11/06/2023 7:20 AM EDT Laboratory Appointment Lab [address]L [place] [address] CKD (chronic kidney disease) stage [...] EST Clinical Support [place] [address] 06/19/2024 2:00 PM EST Office [place] [address] Pepe Horton MD [facility] [place] [address] 08/10/2024 10:00 AM EDT Laboratory Appointment Lab [address] [place] [address] 08/10/2024 11:20 AM EDT Office Visit Nephrology Hypertension at [place] [address] Jovani Richardson MD [facility] [place] [address] A, Nurse Clinician None 08/20/2024 7:30 AM EDT Hospital Encounter Gastroenterology at [place] [address] Lawrence Gar MD [facility] [place] [address] 08/20/2024 7:30 AM EDT - 08/20/2024 8:15 AM EDT Surgery Gastroenterology at [place] [address] Lawrence Gar MD [facility] [place] [address] EGD, UPPER GI ENDOSCOPY (WRVU 2.09) 11/17/2024 4:20 PM EDT Office [place] [address] Lawrence Gar MD [facility] [place] [address] Scheduled Procedures Name Priority Associated Diagnoses Date/Ti [...] Protein/Creatinine Ratio, urine (11/06/2023 7:48 AM EDT) Pathologist [facility] Creatinine, Urine 69 mg/dL [facility] Protein, Urine 179(H) 0 - 12 mg/dL [facility] Protein / Creatinine Ratio, Urine 2.6 ratio [facility] Urine 11/06/2023 7:48 AM EDT 11/06/2023 7:58 AM EDT Narrative Resulting Agency Comment Spec In Lab Jovani Richardson MD URINE ORDERABLES [facility] [place] [address] * Gold Tube HOLD (11/06/2023 7:37 AM EDT) Pathologist [facility] Gold Hold Sample in lab. [facility] Blood No Charge / Unknown 11/06/2023 7:37 AM EDT 11/06/2023 7:49 AM EDT Jovani Richardson MD CHEMISTRY ORDERABLES [facility] [place] [address] * Differential, Automated (11/06/2023 7:37 AM EDT) Pathologist [facility] Neutrophil % 62.9 % [facility] Neutrophil Absolute 3.24 1.70 - 6.10 x10(3)/[facility] Lymph % 17.5 % [facility] Lymphocytes Abs 0.9 0.9 - 3.2 x10(3)/[facility] Monocyte % 11.8 % [facility] Monocyte Abs 0.6 0.3 - 0.9 x10(3)/[facility] Eos % 6.2 % [facility] Eosinophils Abs 0.3 0.0 - 0.4 x10(3)/[facility] Basophil % 1.4 % [facility] Baso Absolute 0.1 0.0 - 0.1 x10(3)/[facility] Immature Gran % 0.20 % [facility] Comment: Immature granulocytes(IG's)percentage and absolute count will include metamyelocytes, myelocytes, and promyelocytes. Blood smears from CBCs yielding IG's will be scanned manually for concordance. If this scan disagrees with the automated IG or if promyelocytes are noted, a manual differential will be performed. Immature Gran Absolute 0.01 0.00 - 0.04 x10(3)/[facility] Blood 11/06/2023 7:37 AM EDT 11/06/2023 7:49 AM EDT Narrative Resulting Agency Comment Spec In Lab Jovani Richardson MD HEMATOLOGY ORDERABLE S [facility] [place] [address] * (ABNORMAL) Hemogram (11/06/2023 7:37 AM EDT) Pathologist [facility] White Blood Cell 5.2 4.0 - 9.5 x10(3)/mc L [facility] Red Blood Cell 3.49(L) 4.58 - 5.54 x10(6)/mc L [facility] Hemoglobin 10.7(L) 13.7 - 16.5 g/dL [facility] Hematocrit 33.2(L) 40.5 - 48.5 % [facility] Mean Cell Volume 95.1(H) 82.9 - 93.1 fL [facility] Mean Cell Hemoglobin 30.7 27.5 - 32.1 pg [facility] Mean Cell Hemoglobin Concentration 32.2 32.0 - 35.7 g/dL [facility] Platelet 175 145 - 357 x10(3)/mc L [facility] RDW Standard Deviation 44.9 36.0 - 45.0 fL [facility] RDW coefficient of variation 12.8 11.4 - 13.8 % [facility] Mean Platelet Volume 10.8 7.6 - 12.9 fL [facility] NRBC% auto 0.0 % [facility] NRBC Absolute 0.000 0.000 - 0.000 x10(3)/mc L [facility] Blood 11/06/2023 7:37 AM EDT 11/06/2023 7:49 AM EDT Narrative Resulting Agency Comment Spec In Lab Jovani Richardson MD HEMATOLOGY ORDERABLE S Performing Organization Address City/[facility] Co de Phone Number [facility] [place] [address] * (ABNORMAL) PTH (11/06/2023 7:37 AM EDT) Parathyroid Hormone 113(H) 15 - 65 pg/mL [facility] Blood 11/06/2023 7:37 AM EDT 11/06/2023 7:49 AM EDT Narrative Resulting Agency Comment Spec In Lab Jovani Richardson MD CHEMISTRY ORDERABLES Performing Organization Address City/[facility]/ZIP Co de Phone Number [facility] [place] [address] * Ferritin (11/06/2023 7:37 AM EDT) Pathologist [facility] Ferritin 97 31 - 409 ng/mL [facility] Comment: Please note that as of 05/01/2023, the reference intervals for Ferritin have been updated. Blood 11/06/2023 7:37 AM EDT 11/06/2023 7:49 AM EDT Narrative Resulting Agency Comment Spec In Lab Jovani Richardson MD CHEMISTRY ORDERABLES [facility] [place] [address] * Iron and TIBC (11/06/2023 7:37 AM EDT) [facility] Iron 80 45 - 160 mcg/dL [facility] TIBC 266 250 - 450 mcg/dL [facility] Iron Saturation 30 20 - 50 % [facility] Blood 11/06/2023 7:37 AM EDT 11/06/2023 7:49 AM EDT Narrative Resulting Agency Comment Spec In Lab Jovani Richardson MD CHEMISTRY ORDERABLES Performing Organization Address [facility]/ZIP Co de Phone Number [facility] [place] [address] * (ABNORMAL) Vitamin D, 25-Hydroxy (11/06/2023 7:37 AM EDT) Pathologist [facility] Vitamin D Total 25 OH 20(L) 21 - 100 ng/mL [facility] Vit D Interp Deficient [facility] Blood 11/06/2023 7:37 AM EDT 11/06/2023 7:49 AM EDT Narrative Resulting Agency Comment Spec In Lab Jovani Richardson MD CHEMISTRY ORDERABLES Performing Organization Address City/[facility]/ZIP Co de Phone Number [facility] [place] [address] * (ABNORMAL) Basic Metabolic Panel (non-fasting) (11/06/2023 7:37 AM EDT) Glucose 93 65 - 199 mg/dL [facility] Comment:Diabetes: >=200 mg/d L plus symptoms Blood Urea Nitrogen 56(H) 10 - 20 mg/dL [facility] Creatinine 3.08(H) 0.80 - 1.50 mg/dL [facility] Sodium 142 135 - 145 mmol/L [facility] Potassium 5.2(H) 3.5 - 5.0 mmol/L [facility] Comment: Please note: ??Patients with WBC >100,000 may have falsely elevated Potassium levels. ??For accurate Potassium quantification in these patients send serum separator tube (gold top) for subsequent determinations. ??Contact the Clinical Chemistry Laboratory if there are any questions. Chloride 108(H) 98 - 107 mmol/L [facility] Carbon Dioxide 21(L) 22 - 31 mmol/L [facility] Anion Gap 13 5 - 15 mmol/L [facility] Calcium 9.0 8.5 - 10.5 mg/dL [facility] Est Glomerular Filtration Rate 21(L) >=60 mL/min/1. 73 m?? [facility] Comment: This patient's estimated [...] In Lab Jovani Richardson MD CHEMISTRY ORDERABLES [facility] [place] [address] * (ABNORMAL) Phosphorus (11/06/2023 7:37 AM EDT) Phosphorus 4.7(H) 2.5 - 4.5 mg/dL [facility] Blood 11/06/2023 7:37 AM EDT 11/06/2023 7:49 AM EDT Narrative Resulting Agency Comment Spec In Lab Jovani Richardson MD CHEMISTRY ORDERABLES Performing Organization Address City/[facility]/ZIP Co de Phone Number [facility] [place] [address] * Albumin Level (11/06/2023 7:37 AM EDT) Albumin 4.1 3.2 - 5.2 g/dL [facility] Blood 11/06/2023 7:37 AM EDT 11/06/2023 7:49 AM EDT Narrative Resulting Agency Comment Spec In Lab Jovani Richardson MD CHEMISTRY ORDERABLES Performing Organization Address City/[facility]/ZIP Co de Phone Number [facility] [place] [address] * Uric acid (11/06/2023 7:37 AM EDT) Uric Acid 7.4 3.5 - 8.5 mg/dL [facility] Blood 11/06/2023 7:37 AM EDT 11/06/2023 7:49 AM EDT Narrative Resulting Agency Comment Spec In Lab Jovani Richardson MD CHEMISTRY ORDERABLES Performing Organization Address City/[facility]/ZIP Co de Phone Number [facility] [place] [address] * (ABNORMAL) PTH (11/06/2023 7:37 AM EDT) Parathyroid Hormone 113(H) 15 - 65 pg/mL [facility] Blood 11/06/2023 7:37 AM EDT 11/06/2023 7:49 AM EDT Narrative Resulting Agency Comment Spec In Lab Jovani Richardson MD CHEMISTRY ORDERABLES [facility] [place] [address] documented in this encounter Visit Diagnoses Diagnosis CKD (chronic kidney disease) stage 4, GFR 15-29 ml/min Chronic kidney disease, Stage IV (severe) Primary hypertension Unspecified essential hypertension Anemia of chronic renal failure, stage 4 (severe) Acidosis, metabolic Acidosis Sharma's esophagus with high grade dysplasia Sharma's esophagus documented in this encounter Care Teams Medical Staff Services Coordinator Relationship Specialty Start Date End Date Govind Mendes PA [address] [place] [address] PCP - General Internal Medicine 11/06/23 documented as of this encounter
--- OUTSIDE RECORDS SUMMARY | 2024-06-08 12:46 | XMS_ITS | Encounter Summary ---
Author Organization [facility] [place] [id number] Care Team Providers Care Manager Flight Name Role Phone Govind Mendes Primary Care [...] Gar MD [facility] [place] [address] [facility] Referral ID Status Reason Start Date Expiration Date Visits Re quested Visits Authorized [id number] 1 1 Encounter Details Date Type Department Care Team (Latest Contact Info) Description 01/02/2024 6:26 AM EDT - 01/02/2024 9:33 AM EDT Hospital [place] [address] Lawrence Gar MD [facility] [place] [address] Sharma's esophagus with high grade dysplasia (Primary [...] the day after the procedure, use an wgpj-rsp-riqumxv spray to numb your throat. Sucking on [...] occurs, please contact your Doctor. Please call [phone] before 8pm Mon-Fri with problems, questions or concerns. If you call after 8pm or on weekends, call the Hospital at [phone] and ask to speak to the Nuclear Equipment Research Engineer union contract representative and the foot miter operator will contact that person for you. When should you call for help? Call [phone] anytime you think you may need emergency [...] After Visit Summary and more online at [email or web address] If you would like to provide [...] cost to you. Content Version: 12.2 ?? 0419-7962 [employer]. Care instructions adapted under license by [facility]. If you have questions about a medical condition or this instruction, always ask your healthcare professional. [employer] disclaims any warranty or liability for your [...] the day after the procedure, use an itrl-yqa-dkgtlxb spray to numb your throat. Sucking on [...] occurs, please contact your Doctor. Please call [phone] before 8pm Mon-Fri with problems, questions or concerns. If you call after 8pm or on weekends, call the Hospital at [phone] and ask to speak to the Nuclear Equipment Research Engineer union contract representative and the foot miter operator will contact that person for you. When should you call for help? Call [phone] anytime you think you may need emergency [...] After Visit Summary and more online at [email or web address] If you would like to provide [...] cost to you. Content Version: 12.2 ?? 7529-2408 [employer]. Care instructions adapted under license by [facility]. If you have questions about a medical condition or this instruction, always ask your healthcare professional. [employer] disclaims any warranty or liability for your [...] EST Clinical Support Solid Organ Transplant at [place] [phone] 06/19/2024 2:00 PM EST Office Visit Solid Organ Transplant at [place] [phone] Pepe Horton MD [facility] [place] [address] 08/10/2024 10:00 AM EDT Laboratory Appointment Lab [place] [phone] 08/10/2024 11:20 AM EDT Office Visit Nephrology Hypertension at [address] Jovani Richardson MD [facility] [place] [address] A, Nurse Clinician None 08/20/2024 7:30 AM EDT Hospital Encounter Gastroenterology at [place] [phone] Lawrence Gar MD [facility] [place] [place] [address] 08/20/2024 7:30 AM EDT - 08/20/2024 8:15 AM EDT Surgery Gastroenterology at [place] [phone] Lawrence Gar MD [facility] [place] [address] EGD, UPPER GI ENDOSCOPY (WRVU 2.09) 11/17/2024 4:20 PM EDT Office [place] [address] Lawrence Gar MD [facility] [place] [address] Scheduled Orders Name Type Priority Associated Diagnoses [...] with dysplasia Esophagoscopy Flexible Transoral Lesion Ablation (54842) 01/02/2024 7:57 AM EDT Sharma's esophagus with dysplasia UPPER GI ENDOSCOPY Routine 01/02/2024 7: 26 AM EDT documented in this encounter Results * UPPER GI ENDOSCOPY (01/02/2024 7:26 AM EDT) UPPER GI ENDOSCOPY [facility] Endoscopy ___ Procedure Date: 01/02/2024 7:26 AM ? Patient Name: Mathew Mendez ? Date of : 1955 ? Age: 68 ? Order #: [id number] ? Instrument Name: [id number] ? ___ Procedure: ? Upper GI endoscopy [...] RN) documented in this encounter Care Teams Manager Flight Relationship Specialty Start Date End Date Govind Mendes PA [facility] [place] [address] [place] [address] PCP - General Internal Medicine 11/06/23 documented as of this encounter
--- OUTSIDE RECORDS SUMMARY | 2024-06-08 12:46 | XMS_ITS | Encounter Summary ---
[place] [address] Care Team Providers Care Small Piece Cutter Name Role Phone Slade Tran MD Primary Care Provider [phone] Encounter Details Date Type Department Care Team (Late st Contact Info) Description 09/19/2023 External Results Neph[place] [phone] Karol Iverson RN Social History Tobacco Use [...] EST Clinical Support [place] [address] 06/19/2024 2:00 PM EST Office Visit [place] [address] Pepe Horton MD [facility] [place] [address] 08/10/2024 10:00 AM EDT Laboratory Appointment Lab [address] [place] [address] 08/10/2024 11:20 AM EDT Office Visit Nephrology Hypertension at [place] [address] Jovani Richardson MD [facility] [place] [address] A, Nurse Clinician None 08/20/2024 7:30 AM EDT Hospital Encounter Gastroenterology at [place] [address] Lawrence Gar MD [facility] [place] [address] 08/20/2024 7:30 AM EDT - 08/20/2024 8:15 AM EDT Surgery Gastroenterology at [place] [phone] Lawrence Gar MD [facility] [place] [place] [address] EGD, UPPER GI ENDOSCOPY (WRVU 2.09) 11/17/2024 4:20 PM EDT Office Visit Gastroenterology at [place] [phone] Lawrence Gar MD [facility] [place] [place] [address] Scheduled Procedures Name Priority Associated Diagnoses Date/Ti [...] on filedocumented in this encounter Care Teams Small Piece Cutter Relationship Specialty Start Date End Date Slade Tran MD PCP - General Family Medicine 06/19/22 11/05/23 documented as of this encounter
--- OUTSIDE RECORDS SUMMARY | 2024-06-08 12:46 | XMS_ITS | Encounter Summary ---
Author Organization [facility]ly [facility] Address [facility] [place] [address] Care Team Providers Care Benefits Specialist Name Role Phone Govind Mendes Primary Care Provider + Encounter Details Date Type Department Care Team (Late st Contact Info) Description 11/19/2023 4:40 PM EDT Office [place] [address] Lawrence Gar MD [facility] [place] [address] Alcohol-induced chronic pancreatitis; Sharma's esophagus with dysplasia [...] Sharma's and colon polyps. Lawrence Gar MD yolk spray drier Director, GI Endoscopy Section of [place]astroenter[place] [address] Cc:[place] [address] documented in this encounter Plan of Treatment Upcoming Encounters Date Type Department Care Team (Latest Contact Info) Description 06/19/2024 1:40 PM EST Clinical Support Solid Organ Transplant at [place] [phone] 06/19/2024 2:00 PM EST Office [place] [address] Pepe Horton MD [facility] [place] [address] 08/10/2024 10:00 AM EDT Laboratory Appointment Lab [address] [address] 08/10/2024 11:20 AM EDT Office Visit Nephrology Hypertension at [address]1000 Jovani Richardson MD [facility] [place] [address] A, Nurse Clinician None 08/20/2024 7:30 AM EDT Hospital Encounter Gastroenterology at [address]1000 Lawrence Gar MD [facility] [place] [address] 08/20/2024 7:30 AM EDT - 08/20/2024 8:15 AM EDT Surgery Gastroenterology at [place] [phone] Lawrence Gar MD [facility] [place] [address] EGD, UPPER GI ENDOSCOPY (WRVU 2.09) 11/17/2024 4:20 PM EDT Office Visit Gastroenterology at [place] [phone] Lawrence Gar MD [facility] [place] [address] Scheduled Procedures Name Priority Associated Diagnoses Date/Ti me EGD, UPPER GI ENDOSCOPY (WRVU 2.09) Sharma's esophagus with high grade dysplasia 08/20/2024 7:30 AM EDT documented as of this encounter Visit Diagnoses Diagnosis Alcohol-induced chronic pancreatitis Chronic pancreatitis Sharma's esophagus with dysplasia Sharma's esophagus Sharma's esophagus with high grade dysplasia Sharma's esophagus documented in this encounter Care Teams Benefits Specialist Relationship Specialty Start Date End Date Govind Mendes PA [address] [place], [place] [address] [address] PCP - General Internal Medicine 11/06/23 documented as of this encounter
--- OUTSIDE RECORDS SUMMARY | 2024-06-08 12:46 | XMS_ITS | Encounter Summary ---
[place] [address] Care Team Providers Care Conditioning Yard Supervisor Name Role Phone Slade Tran MD Primary Care Provider [phone] Encounter Details Date Type Department Care Team (Late st Contact Info) Description 09/11/2023 Telephone Ne[place]rology [place] [phone] Lui Sanchez RN Social History Tobacco Use [...] RN received call from Rakesh at [facility] lab with critical lab value for patient. [...] EST Clinical Support [place] [address] 06/19/2024 2:00 PM EST Office Visit Solid Organ Transplant at [place] [phone] Pepe Horton MD [facility] [place] [address] 08/10/2024 10:00 AM EDT Laboratory Appointment Lab [address] [phone] 08/10/2024 11:20 AM EDT Office Visit Nephrology Hypertension at [place] [phone] Jovani Richardson MD [facility] [place] [place] [address] A, Nurse Clinician None 08/20/2024 7:30 AM EDT Hospital Encounter Gastroenterology at [place] [phone] Lawrence Gar MD [facility] [place] [address] 08/20/2024 7:30 AM EDT - 08/20/2024 8:15 AM EDT Surgery Gastroenterology at [place] [phone] Lawrence Gar MD [facility] [place] [address] EGD, UPPER GI ENDOSCOPY (WRVU 2.09) 11/17/2024 4:20 PM EDT Office [place] [address] Lawrence Gar MD [facility] [place] [address] Scheduled Procedures Name Priority Associated Diagnoses Date/Ti me EGD, UPPER GI ENDOSCOPY (WRVU 2.09) Sharma's esophagus with high grade dysplasia 08/20/2024 7:30 AM EDT documented as of this encounter Visit Diagnoses Not on filedocumented in this encounter Care Teams Conditioning Yard Supervisor Relationship Specialty Start Date End Date Slade Tran MD PCP - General Family Medicine 06/19/22 11/05/23 documented as of this encounter
--- OUTSIDE RECORDS SUMMARY | 2024-06-08 12:46 | XMS_ITS | Encounter Summary ---
[place] [address] Care Team Providers Care Credit Balance Specialist Name Role Phone Slade Tran MD Primary Care Provider [phone] Encounter Details Date Type Department Care Team (Late st Contact Info) Description 09/25/2023 External Results [place] [phone] Karol Iverson RN Social History Tobacco Use [...] EST Clinical Support [place] [phone] 06/19/2024 2:00 PM EST Office [place] [phone] Pepe Horton MD [facility] [place] [address] 08/10/2024 10:00 AM EDT Laboratory Appointment Lab [address] [place] [address] 08/10/2024 11:20 AM EDT Office Visit Nephrology Hypertension at [place] [address] Jovani Richardson MD [facility] [place] [place] [address] A, Nurse Clinician None 08/20/2024 7:30 AM EDT Hospital Encounter Gastroenterology at [place] [address] Lawrence Gar MD [facility] [place] [address] 08/20/2024 7:30 AM EDT - 08/20/2024 8:15 AM EDT Surgery Gastroenterology at [place] [phone] Lawrence Gar MD [facility] [place] [address] EGD, UPPER GI ENDOSCOPY (WRVU 2.09) 11/17/2024 4:20 PM EDT Office Visit Gastroenterology at [place] [phone] Lawrence Gar MD [facility] [place] [address] Scheduled Procedures Name Priority Associated Diagnoses Date/Ti [...] on filedocumented in this encounter Care Teams Credit Balance Specialist Relationship Specialty Start Date End Date Slade Tran MD PCP - General Family Medicine 06/19/22 11/05/23 documented as of this encounter
--- OUTSIDE RECORDS SUMMARY | 2024-06-08 12:46 | XMS_ITS | Encounter Summary ---
[place] [address] Care Team Providers Care Vessel Engineer Name Role Phone Slade Tran MD Primary Care Provider [phone] Encounter Details Date Type Department Care Team (Late st Contact Info) Description 09/19/2023 Telephone Neph[place] [phone] Karol Iverson RN Social History Tobacco Use [...] Support [place] [phone] 06/19/2024 2:00 PM EST Office Visit [place] [address] Pepe Horton MD [facility] DR [place] [address] 08/10/2024 10:00 AM EDT Laboratory Appointment Lab [address] [place], [place] [phone] 08/10/2024 11:20 AM EDT Office Visit Nephrology Hypertension at [address]1000 Jovani Richardson MD [facility] [place] [address] A, Nurse Clinician None 08/20/2024 7:30 AM EDT Hospital Encounter Gastroenterology at [place] [phone] Lawrence Gar MD [facility] [place] [address] 08/20/2024 7:30 AM EDT - 08/20/2024 8:15 AM EDT Surgery Gastroenterology at [place] [phone] Lawrence Gar MD [facility] [place] [address] EGD, UPPER GI ENDOSCOPY (WRVU 2.09) 11/17/2024 4:20 PM EDT Office Visit Gastroenterology at [place] [phone] Lawrence Gar MD [facility] [place] [address] Scheduled Procedures Name Priority Associated Diagnoses Date/Ti me EGD, UPPER GI ENDOSCOPY (WRVU 2.09) Sharma's esophagus with high grade dysplasia 08/20/2024 7:30 AM EDT documented as of this encounter Visit Diagnoses Not on filedocumented in this encounter Care Teams Vessel Engineer Relationship Specialty Start Date End Date Slade Tran MD PCP - General Family Medicine 06/19/22 11/05/23 documented as of this encounter
--- OUTSIDE RECORDS SUMMARY | 2024-06-08 12:46 | XMS_ITS | Encounter Summary ---
Author Organization [facility] [place] [address] Care Team Providers Care Finishing Range Supervisor Name Role Phone Govind Mendes Primary Care Provider + Encounter Details Date Type Department Care Team (Late st Contact Info) Description 11/26/2023 Orders Only [place] [phone] Lizet Hayward RN CKD (chronic kidney disease) [...] EST Clinical Support [place] [address] 06/19/2024 2:00 PM EST Office [place] [address] [facility] [place] [address] 08/10/2024 10:00 AM EDT Laboratory Appointment Lab [address] [address] 08/10/2024 11:20 AM EDT Office Visit Nephrology Hypertension at [place] [address] [facility] [place] [address] A, Nurse Clinician None 08/20/2024 7:30 AM EDT Hospital Encounter Gastroenterology at [address] [facility] [place] [address] 08/20/2024 7:30 AM EDT - 08/20/2024 8:15 AM EDT Surgery Gastroenterology at [place] [address] [facility] [place] [address] EGD, UPPER GI ENDOSCOPY (WRVU 2.09) 11/17/2024 4:20 PM EDT Office Visit Gastroenterology at [place] [address] [facility] [place] [address] Scheduled Orders Name Type Priority Associated Diagnoses [...] esophagus documented in this encounter Care Teams Finishing Range Supervisor Relationship Specialty Start Date End Date Govind Mendes PA [facility] [place] [address] PCP - General Internal Medicine 11/06/23 documented as of this encounter
--- OUTSIDE RECORDS SUMMARY | 2024-06-08 12:46 | XMS_ITS | Encounter Summary ---
Author Organization [facility] [place] [address] Care Team Providers Care Collision Mechanic Name Role Phone Govind Mendes Primary Care [...] GI ENDOSCOPY (WRVU 2.09) Lawrence Gar MD [facility] [place] [address] [facility] Referral ID Status Reason Start Date Expiration Date Visits Re quested Visits Authorized [id number] 1 1 Encounter Details Date Type Department Care Team (Late st Contact Info) Description 01/02/2024 7:57 AM EDT Anesthesia [place] [address] Dennis Peguero MD [facility] [place] [address] April Mchugh CRNA [facility] [place] [address] Anesthesia Record Procedure Summary Procedure Name Responsible [...] Procedure Summary Date: 01/02/24 Room / Location: [facility] ENDO 2 / [facility] ENDOSCOPY Anesthesia Start: 756 Anesthesia Stop: 827 Procedures: EGD,WITH ABLATION OF TUMOR OR OTHER LESION (WRVU 3.49) (Trunk) RADIOFREQUENCY ABLATION (Esophagus) Diagnosis: Sharma's esophagus with dysplasia (For Barrx ablation of HGD) Surgeons: Lawrence Gar MD Responsible Provider: Dennis Peguero MD Anesthesia Type: MAC ASA Status: 3 All Anesthesia Providers: Anesthesiologist: Dennis Peguero MD [employer]: April Mchugh CRNA Vitals Value Taken Time BP 153/90 01/02/24 0900 Temp 36.6 ??C (97.9 ??F) 01/02/24 0825 Pulse Resp 16 01/02/24 0900 SpO2 98 % 01/02/24 0901 Pain Level 0 01/02/24 0900 Vitals shown include unfiled device data. Patient Location: PACU/[facility] Level of Consciousness: Awake and Alert [...] y.o. male. Procedure(s): EGD, [facility] Patient Active Problem List Diagnosis Date [...] 4.67) performed by Lawrence Gar MD at [facility] ENDOSCOPY ??? PRO COLONOSCOPY, REMV LESN, SNARE N/A 11/12/2023 COLONOSCOPY, POLYPECTOMY, REMOVAL LESION BY SNARE (WRVU 4.57) performed by Lawrence Gar MD at [facility] ENDOSCOPY ??? PRO UPPER GI ENDOSCOPY, BIOPSY N/A 10/20/2020 EGD WITH BIOPSY (WRVU 2.49) performed by Lawrence Gar MD at [facility] ENDOSCOPY ??? PRO UPPER GI ENDOSCOPY, BIOPSY N/A 11/12/2023 EGD WITH BIOPSY (WRVU 2.39) performed by Lawrence Gar MD at [facility] ENDOSCOPY Social History Tobacco Use ??? [...] Weight: BMI: IBW: Last edited 01/02/24707 by BW Currently displaying vitals information from multiple entries [...] with patient and spouse. Plan discussed with [employer] and attending. Anesthesia Screening documented in this encounter Plan of Treatment Upcoming Encounters Date Type Department Care Team (Latest Contact Info) Description 06/19/2024 1:40 PM EST Clinical Support [place] [address] 06/19/2024 2:00 PM EST Office Visit [place] [address] Pepe Horton MD [facility] [place] [address] 08/10/2024 10:00 AM EDT Laboratory Appointment Lab [address] [place] [address] 08/10/2024 11:20 AM EDT Office Visit Nephrology Hypertension at [address]1000 Jovani Richardson MD [facility] [place] [address] A, Nurse Clinician None 08/20/2024 7:30 AM EDT Hospital Encounter Gastroenterology at [address]1000 Lawrence Gar MD [facility] [place] [address] 08/20/2024 7:30 AM EDT - 08/20/2024 8:15 AM EDT Surgery [place] [address] Lawrence Gar MD [facility] [place] [address] EGD, UPPER GI ENDOSCOPY (WRVU 2.09) 11/17/2024 4:20 PM EDT Office [place] [address] Lawrence Gar MD [facility] [place] [address] Scheduled Procedures Name Priority Associated Diagnoses Date/Ti [...] mg documented in this encounter Care Teams Collision Mechanic Relationship Specialty Start Date End Date Govind [place] [address] PCP - General Internal Medicine 11/06/23 documented as of this encounter
--- OUTSIDE RECORDS SUMMARY | 2024-06-08 12:47 | XMS_ITS | Encounter Summary ---
Author Organization [facility] Address [facility] [place] [address] Care Team Providers Care Luster Applicator Name Role Phone Slade Tran MD Primary Care Provider [phone] Encounter Details Date Type Department Care Team [...] EST Clinical Support [place] [address] 06/19/2024 2:00 PM EST Office Visit [place] [address] Pepe Horton MD [facility] [place] [address] 08/10/2024 10:00 AM EDT Laboratory Appointment Lab [address] [place] [address] 08/10/2024 11:20 AM EDT Office Visit Nephrology Hypertension at [place] [phone] Jovani Richardson MD [facility] [place] [address] A, Nurse Clinician None 08/20/2024 7:30 AM EDT Hospital Encounter Gastroenterology at [place] [address] Lawrence Gar MD [facility] [place] [address] 08/20/2024 7:30 AM EDT - 08/20/2024 8:15 AM EDT Surgery Gastroenterology at [place] [phone] Lawrence Gar MD [facility] [place] [address] EGD, UPPER GI ENDOSCOPY (WRVU 2.09) 11/17/2024 4:20 PM EDT Office Visit Gastroenterology at [place] [phone] Lawrecne Gar MD [facility] [place] [address] Scheduled Procedures Name Priority Associated Diagnoses Date/Ti me EGD, UPPER GI ENDOSCOPY (WRVU 2.09) Sharma's esophagus with high grade dysplasia 08/20/2024 7:30 AM EDT documented as of this encounter Visit Diagnoses Not on filedocumented in this encounter Care Teams Luster Applicator Relationship Specialty Start Date End Date Slade Tran MD PCP - General Family Medicine 06/19/22 11/05/23 documented as of this encounter
--- OUTSIDE RECORDS SUMMARY | 2024-06-08 12:47 | XMS_ITS | Encounter Summary ---
[place] [address] Care Team Providers Care Turret Punch Press Operator Name Role Phone Slade Tran MD Primary Care Provider [phone] Encounter Details Date Type Department Care Team (Late st Contact Info) Description 07/13/2022 Telephone [place] [phone] Patsy Quintero Social History Tobacco Use Types [...] appointment to Dr. Cong vargas available. Sent [facility] message to patient * Telephone Encounter - Patsy Quintero - 07/13/2022 1:34 PM EST Inbound/Outbound: OUTBOUND Spoke to Patient/Left Message: [facility] Notes: LVM for patient to call to reschedule his appointment cancelled by [facility] and per message sentfrom nursing that patient cannot get through to secretaries. Return calls can be handled by: [facility] [place] documented in this encounter Plan of Treatment Upcoming Encounters Date Type Department Care Team (Latest Contact Info) Description 06/19/2024 1:40 PM EST Clinical Support Solid Organ Transplant at [place] [phone] 06/19/2024 2:00 PM EST Office [place] [address] Pepe Horton MD [facility] [place] [address] 08/10/2024 10:00 AM EDT Laboratory Appointment Lab [address] [place] [address] 08/10/2024 11:20 AM EDT Office Visit Nephrology Hypertension at [address]1000 Jovani Richardson MD [facility] [place] [address] A, Nurse Clinician None 08/20/2024 7:30 AM EDT Hospital Encounter Gastroenterology at [place] [address] Lawrence Gar MD [facility] [place] [address] 08/20/2024 7:30 AM EDT - 08/20/2024 8:15 AM EDT Surgery Gastroenterology at [place] [phone] Lawrence Gar MD [facility] [place] [address] EGD, UPPER GI ENDOSCOPY (WRVU 2.09) 11/17/2024 4:20 PM EDT Office [place] [address] Lawrence Gar MD [facility] [place] [address] Scheduled Procedures Name Priority Associated Diagnoses Date/Ti me EGD, UPPER GI ENDOSCOPY (WRVU 2.09) Sharma's esophagus with high grade dysplasia 08/20/2024 7:30 AM EDT documented as of this encounter Visit Diagnoses Not on filedocumented in this encounter Care Teams Turret Punch Press Operator Relationship Specialty Start Date End Date Slade Tran MD PCP - General Family Medicine 06/19/22 11/05/23 documented as of this encounter
--- OUTSIDE RECORDS SUMMARY | 2024-06-08 12:47 | XMS_ITS | Encounter Summary ---
[place] [address] Care Team Providers Care Coal Handling Supervisor Name Role Phone Slade Tran MD Primary Care Provider [phone] Encounter Details Date Type Department Care Team (Late st Contact Info) Description 03/05/2023 Telephone Nephrology [place] [address] Christiana Haq Social History Tobacco Use Types [...] EST Clinical Support [place] [address] 06/19/2024 2:00 PM EST Office Visit [place] [address] Pepe Horton MD [facility] [place] [address] 08/10/2024 10:00 AM EDT Laboratory Appointment Lab [address] [place] [phone] 08/10/2024 11:20 AM EDT Office Visit Nephrology Hypertension at [address]1000 Jovani Richardson MD [facility] [place] [address] A, Nurse Clinician None 08/20/2024 7:30 AM EDT Hospital Encounter Gastroenterology at [place] [phone] Lawrence Gar MD [facility] [place] [address] 08/20/2024 7:30 AM EDT - 08/20/2024 8:15 AM EDT Surgery Gastroenterology at [place] [phone] Lawrence Gar MD [facility] [place] [address] EGD, UPPER GI ENDOSCOPY (WRVU 2.09) 11/17/2024 4:20 PM EDT Office Visit Gastroenterology at [place] [phone] Lawrence Gar MD [facility] [place] [address] Scheduled Procedures Name Priority Associated Diagnoses Date/Ti me EGD, UPPER GI ENDOSCOPY (WRVU 2.09) Sharma's esophagus with high grade dysplasia 08/20/2024 7:30 AM EDT documented as of this encounter Visit Diagnoses Not on filedocumented in this encounter Care Teams Coal Handling Supervisor Relationship Specialty Start Date End Date Slade Tran MD PCP - General Family Medicine 06/19/22 11/05/23 documented as of this encounter
--- OUTSIDE RECORDS SUMMARY | 2024-06-08 12:47 | XMS_ITS | Encounter Summary ---
Author Organization [facility] Address [facility] [place] [address] Care Team Providers Care Technician Automatic Name Role Phone Slade Tran MD Primary Care Provider [phone] Encounter Details Date Type Department Care Team [...] EST Clinical Support [place] [address] 06/19/2024 2:00 PM EST Office Visit [place] [address] Pepe Horton MD [facility] [place] [address] 08/10/2024 10:00 AM EDT Laboratory Appointment Lab [address] [place] [address] 08/10/2024 11:20 AM EDT Office Visit Nephrology Hypertension at [place] [phone] Jovani Richardson MD [facility] [place] [address] A, Nurse Clinician None 08/20/2024 7:30 AM EDT Hospital Encounter Gastroenterology at [place] [address] Lawrence Gar MD [facility] [place] [address] 08/20/2024 7:30 AM EDT - 08/20/2024 8:15 AM EDT Surgery Gastroenterology at [place] [phone] Lawrence Gar MD [facility] [place] [address] EGD, UPPER GI ENDOSCOPY (WRVU 2.09) 11/17/2024 4:20 PM EDT Office Visit Gastroenterology at [place] [phone] Lawrence Gar MD [facility] [place] [address] Scheduled Procedures Name Priority Associated Diagnoses Date/Ti me EGD, UPPER GI ENDOSCOPY (WRVU 2.09) Sharma's esophagus with high grade dysplasia 08/20/2024 7:30 AM EDT documented as of this encounter Visit Diagnoses Not on filedocumented in this encounter Care Teams Technician Automatic Relationship Specialty Start Date End Date Slade Tran MD PCP - General Family Medicine 06/19/22 11/05/23 documented as of this encounter
--- OUTSIDE RECORDS SUMMARY | 2024-06-08 12:47 | XMS_ITS | Encounter Summary ---
[place] [address] Care Team Providers Care Wealth Management Manager Name Role Phone Jovani Wharton DO Primary Care Provider Encounter Details Date Type Department Care Team (Late st Contact Info) Description 05/24/2022 [place]phone [place] [phone] Patsy Quintero Social History Tobacco Use Types [...] to schedule visit with Dr. Gar from [facility]. Return calls can be handled by: ANY GASTRO SERVER SOFTWARE ENGINEER documented in this encounter Plan of Treatment Upcoming Encounters Date Type Department Care Team (Latest Contact Info) Description 06/19/2024 1:40 PM EST Clinical Support [place] [address] 06/19/2024 2:00 PM EST Office Visit Solid Organ Transplant at [place] [address] Pepe Horton MD [facility] [place] [address] 08/10/2024 10:00 AM EDT Laboratory Appointment Lab [address] [place] [address] 08/10/2024 11:20 AM EDT Office Visit Nephrology Hypertension at [address] Jovani Richardson MD [facility] [place] [address] A, Nurse Clinician None 08/20/2024 7:30 AM EDT Hospital Encounter Gastroenterology at [place] [phone] Lawrence Gar MD [facility] [place] [place] [address] 08/20/2024 7:30 AM EDT - 08/20/2024 8:15 AM EDT Surgery Gastroenterology at [place] [phone] Lawrence Gar MD [facility] [place] [address] EGD, UPPER GI ENDOSCOPY (WRVU 2.09) 11/17/2024 4:20 PM EDT Office [place] [address] Lawrence Gar MD [facility] [place] [address] Scheduled Procedures Name Priority Associated Diagnoses Date/Ti me EGD, UPPER GI ENDOSCOPY (WRVU 2.09) Sharma's esophagus with high grade dysplasia 08/20/2024 7:30 AM EDT documented as of this encounter Visit Diagnoses Not on filedocumented in this encounter Care Teams Wealth Management Manager Relationship Specialty Start Date End Date Jovani Wharton DO [address] [place] [address] [place] [address] PCP - General Family Medicine 10/18/16 06/18/22 documented as of this encounter
--- OUTSIDE RECORDS SUMMARY | 2024-06-08 12:47 | XMS_ITS | Encounter Summary ---
Author Organization [facility] Address [facility] [place] [address] Care Team Providers Care Licensed Life And Health Agent Name Role Phone Slade Tran MD Primary Care Provider [phone] Reason for Visit * Consultation (Routine) - Closed Specialty Diagnoses / Procedures Referred By Devaughn bobo Referred To Contact Nephrology Diagnoses Chronic kidney disease, stage IV (severe) Slade Tran MD [address] [place] [address] [place] [address] [facility] [address] [place] [phone] Referral ID Status Reason Start Date Expiration Date V isits Requested Visits Authorized [id number] Closed Consult, Test & Treat PCP Updated and/or Approved 06/19/2022 06/19/2023 3 3 Encounter Details Date Type Department Care Team (Latest Contact Info) Description 08/17/2022 10:30 AM EDT Office Visit Ne[place] [address] Jovani Richardson MD [facility] [place] [address] Acute worsening of stage 4 [...] 10:30 AM EDT Nephrology/Hypertension Clinic Follow-up Note [id number] ID: 67 y.o.year-old male for follow up [...] Take 50 mg by mouth daily. ??? [id number] DR (Creon 6) 6,000-19,000 -30,000 unit Capsule, [...] [address] capsule Daily ??? [DISCONTINUED] [employer] Kit Sodium Bicarb 1/2 teaspoon, [...] labs in 1 month (orders sent to [facility]) - if labs are stable, [...] EST Clinical Support [place] [address] 06/19/2024 2:00 PM EST Office Visit [place] [address] Pepe Horton MD [facility] [place] [address] 08/10/2024 10:00 AM EDT Laboratory Appointment Lab [address] [place] [address] 08/10/2024 11:20 AM EDT Office Visit Ne[place] [address] Jovani Richardson MD [facility] [place] [address] A, Nurse Clinician None 08/20/2024 7:30 AM EDT Hospital Encounter Gastroenterology at [place] [phone] Lawrence Gar MD [facility] [place] [address] 08/20/2024 7:30 AM EDT - 08/20/2024 8:15 AM EDT Surgery Gastroenterology at [place] [phone] Lawrence Gar MD [facility] [place] [address] EGD, UPPER GI ENDOSCOPY (WRVU 2.09) 11/17/2024 4:20 PM EDT Office Visit Gastroenterology at [place] [phone] Lawrence Gar MD [facility] [place] [address] Scheduled Procedures Name Priority Associated Diagnoses Date/Ti [...] EDT) Glucose, Urine Dipstick Negative Negative mg/dL [facility] Protein, Urine Dipstick 100(A) Negative mg/dL [facility] Bilirubin, Urine Dipstick Negative Negative mg/dL [facility] Comment: Clinical correlation required for positive Urine Bilirubin results as false positive may occur with some drugs and drug related products. If a false positive is suspected a serum total bilirubin should be considered if clinically indicated. Urobilinogen, Urine Dipstick Normal Normal mg/dL [facility] pH, Urn (dipstick) 6.0 5.0 - 8.0 [facility] Blood, Urine Dipstick Negative Negative mg/dL [facility] Ketone, Urine Dipstick Negative Negative mg/dL [facility] Nitrite, Urine Dipstick Negative Negative [facility] Leukocytes, Urine Dipstick Negative Negative mcL [facility] Appearance, Urine Dipstick Clear Clear [facility] Specific [place] Urine Automated 1.015 1.005 - 1.030 [facility] Color, Urine Dipstick Yellow Yellow [facility] Urine 01/21/2023 2:04 PM EDT 01/21/2023 2:21 PM EDT Narrative Resulting Agency Comment Spec In Lab Jovani Richardson MD URINE ORDERABLES Performing Organization Address City/[facility]/ZIP Co de Phone Number [facility] [place] [address] * (ABNORMAL) Protein/Creatinine Ratio, urine (01/21/2023 2:04 PM EDT) Creatinine, Urine 55 mg/dL [facility] Protein, Urine 84(H) 0 - 12 mg/dL [facility] Protein / Creatinine Ratio, Urine 1.5 ratio [facility] Urine 01/21/2023 2:04 PM EDT 01/21/2023 2:21 PM EDT Narrative Resulting Agency Comment Spec In Lab Jovani Richardson MD URINE ORDERABLES Performing Organization Address City/[facility]/ZIP Co de Phone Number [facility] [place] [address] * Phosphorus (01/21/2023 12:55 PM EDT) Phosphorus 3.5 2.5 - 4.5 mg/dL [facility] Blood 01/21/2023 12:5 5 PM EDT 01/21/2023 1:11 PM EDT Narrative Resulting Agency Comment Spec In Lab Jovani Richardson MD CHEMISTRY ORDERABLES Performing Organization Address City/[facility] Co de Phone Number [facility] [place] [address] * Albumin Level (01/21/2023 12:55 PM EDT) Albumin 4.3 3.2 - 5.2 g/dL [facility] Blood 01/21/2023 12:5 5 PM EDT 01/21/2023 1:11 PM EDT Narrative Resulting Agency Comment Spec In Lab Jovani Richardson MD CHEMISTRY ORDERABLES Performing Organization Address [facility] Co de Phone Number [facility] [place] [address] * (ABNORMAL) PTH (01/21/2023 12:55 PM EDT) Parathyroid Hormone 126(H) 15 - 65 pg/mL [facility] Blood 01/21/2023 12:5 5 PM EDT 01/21/2023 1:11 PM EDT Narrative Resulting Agency Comment Spec In Lab Jovani Richardson MD CHEMISTRY ORDERABLES Performing Organization Address [facility] Co de Phone Number [facility] [place] [address] * (ABNORMAL) Basic Metabolic Panel (non-fasting) (01/21/2023 12:55 PM EDT) Glucose 93 65 - 199 mg/dL [facility] Comment:Diabetes: >=200 mg/d L plus symptoms Blood Urea Nitrogen 57(H) 10 - 20 mg/dL [facility] Creatinine 2.71(H) 0.80 - 1.50 mg/dL [facility] Sodium 140 135 - 145 mmol/L [facility] Potassium 5.6(H) 3.5 - 5.0 mmol/L [facility] Comment: Please note: ??Patients with WBC >100,000 may have falsely elevated Potassium levels. ??For accurate Potassium quantification in these patients send serum separator tube (gold top) for subsequent determinations. ??Contact the Clinical Chemistry Laboratory if there are any questions. Chloride 112(H) 98 - 107 mmol/L [facility] Carbon Dioxide 15(L) 22 - 31 mmol/L [facility] Anion Gap 13 5 - 15 mmol/L [facility] Calcium 8.4(L) 8.5 - 10.5 mg/dL [facility] Est Glomerular Filtration Rate 25(L) >=60 mL/min/1. 73 m?? [facility] Comment: This patient's estimated GFR was [...] Richardson MD CHEMISTRY ORDERABLES Performing Organization Address City/State/[facility] Co de Phone Number [facility] [place] [address] * Urinalysis Microscopic Exam (08/17/2022 11:30 AM EDT) RBC, Urine 1 0 - 3 /HPF [facility] WBC, Urine 0 0 - 3 /HPF [facility] Urine Urine / Unknown 08/17/2022 1 1:30 AM EDT 08/17/2022 1:08 PM EDT Narrative Resulting Agency Comment Spec In Lab Jovani Richardson MD URINE ORDERABLES Performing Organization Address [facility] Co de Phone Number [facility] [place] [address] * (ABNORMAL) Urinalysis with reflex Culture (08/17/2022 11:30 AM EDT) Glucose, Urine Dipstick Negative Negative mg/dL [facility] Protein, Urine Dipstick >=300(A) Negative mg/dL [facility] Bilirubin, Urine Dipstick Negative Negative mg/dL [facility] Comment: Clinical correlation required for positive Urine Bilirubin results as false positive may occur with some drugs and drug related products. If a false positive is suspected a serum total bilirubin should be considered if clinically indicated. Urobilinogen, Urine Dipstick Normal Normal mg/dL [facility] pH, Urn (dipstick) 6.0 5.0 - 8.0 [facility] Blood, Urine Dipstick Negative Negative mg/dL [facility] Ketone, Urine Dipstick Negative Negative mg/dL [facility] Nitrite, Urine Dipstick Negative Negative [facility] Leukocytes, Urine Dipstick Negative Negative mcL [facility] Appearance, Urine Dipstick Clear Clear [facility] Specific [place] Urine Automated 1.014 1.005 - 1.030 [facility] Color, Urine Dipstick Yellow Yellow [facility] Reflex to Culture No [facility] Urine Urine / Unknown 08/17/2022 1 1:30 AM EDT 08/17/2022 1:08 PM EDT Narrative Resulting Agency Comment Spec In Lab Jovani Richardson MD URINE ORDERABLES Performing Organization Address [facility] Co de Phone Number [facility] [place] [address] documented in this encounter Visit Diagnoses Diagnosis Acute worsening of stage 4 chronic kidney disease- Primary CKD (chronic kidney disease) stage 4, GFR 15-29 ml/min Chronic kidney disease, Stage IV (severe) Primary hypertension Unspecified essential hypertension 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
--- OUTSIDE RECORDS SUMMARY | 2024-06-08 12:47 | XMS_ITS | Encounter Summary ---
Author Organization [facility] [place] [address] Care Team Providers Care Orthopedic Specialist Name Role Phone Slade Tran MD Primary Care Provider [phone] Encounter Details Date Type Department Care Team (Late st Contact Info) Description 2023 Orders Only Nephrology [place] [phone] Lizet Hayward RN CKD (chronic kidney disease) [...] EST Clinical Support [place] [address] 06/19/2024 2:00 PM EST Office Visit [place] [address] Pepe Horton MD [facility] [place] [address] 08/10/2024 10:00 AM EDT Laboratory Appointment Lab [address] [place] [address] 08/10/2024 11:20 AM EDT Office Visit Nephrology Hypertension at [place] [address] Jovani Richardson MD [facility] [place] [address] A, Nurse Clinician None 08/20/2024 7:30 AM EDT Hospital Encounter Gastroenterology at [address] Lawrence Gar MD [facility] [place] [address] 08/20/2024 7:30 AM EDT - 08/20/2024 8:15 AM EDT [place] [address] Lawrence Gar MD [facility] [place] [address] EGD, UPPER GI ENDOSCOPY (WRVU 2.09) 11/17/2024 4:20 PM EDT Office Visit Gastroenterology at [place] [phone] Lawrence Gar MD [facility] [place] [address] Scheduled Procedures Name Priority Associated Diagnoses Date/Ti me EGD, UPPER GI ENDOSCOPY (WRVU 2.09) Sharma's esophagus with high grade dysplasia 08/20/2024 7:30 AM EDT documented as of this encounter Results * (ABNORMAL) Protein/Creatinine Ratio, urine (08/30/2023 10:00 AM EDT) Creatinine, Urine 72 mg/dL [facility] Protein, Urine 187(H) 0 - 12 mg/dL [facility] Protein / Creatinine Ratio, Urine 2.6 ratio [facility] Urine 08/30/2023 10:0 0 AM EDT 08/30/2023 10:39 AM EDT Narrative Resulting Agency Comment Spec In Lab Jovani Richardson MD URINE ORDERABLES Performing Organization Address [facility] Co de Phone Number [facility] [place] [address] * Vitamin D, 25-Hydroxy (08/30/2023 9:52 AM EDT) Pathologist [facility] Vitamin D Total 25 OH 21 21 - 100 ng/mL [facility] Vit D Interp Insufficient [facility] Blood 08/30/2023 9:52 AM EDT 08/30/2023 9:56 AM EDT Narrative Resulting Agency Comment Spec In Lab Jovani Richardson MD CHEMISTRY ORDERABLES Performing Organization Address [facility] de Phone Number [facility] [place] [address] * Methylmalonic acid, serum (08/30/2023 9:52 AM EDT) Methylmalonic Acid (SEPTEMBER) 0.38 <=0.40 nmol/mL [facility] Comment: ADDITIONAL INFORMATION This test was developed and its performance characteristics determined by [facility] in a manner consistent with CLIA requirements. This test has not been cleared or approved by the U.S. Food and Drug Administration. Test Performed by: [facility] - [address] [address] Distributor Sales Consultant: Todd Worthington M.D. Ph.D.; CLIA# [id number] Blood 08/30/2023 9:52 AM EDT 08/30/2023 3:38 PM EDT Narrative Resulting Agency Comment Spec In Lab Jovani Richardson MD LAB SEND OUT ORDERAB LES Performing Organization Address City/[facility]/ZIP Co de Phone Number [facility] [place] [address] * Folate, serum (08/30/2023 9:52 AM EDT) Folate >20.0 4.8 - 24.2 ng/mL [facility] Blood 08/30/2023 9:52 AM EDT 08/30/2023 9:56 AM EDT Narrative Resulting Agency Comment Spec In Lab Jovani Richardson MD CHEMISTRY ORDERABLES Performing Organization Address [facility] Co de Phone Number [facility] [place] [address] * Vitamin B12 (08/30/2023 9:52 AM EDT) Vitamin B12 608 232 - 1,245 pg/mL [facility] Blood 08/30/2023 9:52 AM EDT 08/30/2023 9:56 AM EDT Narrative Resulting Agency Comment Spec In Lab Jovani Richardson MD CHEMISTRY ORDERABLES Performing Organization Address [facility] Co de Phone Number [facility] [place] [address] * Iron and TIBC (08/30/2023 9:52 AM EDT) Iron 75 45 - 160 mcg/dL [facility] TIBC 251 250 - 450 mcg/dL [facility] Iron Saturation 30 20 - 50 % [facility] Blood 08/30/2023 9:52 AM EDT 08/30/2023 9:56 AM EDT Narrative Resulting Agency Comment Spec In Lab Jovani Richardson MD CHEMISTRY ORDERABLES Performing Organization Address City/[facility]/ZIP Co de Phone Number [facility] [place] [address] * Ferritin (08/30/2023 9:52 AM EDT) Ferritin 152 31 - 409 ng/mL [facility] Comment: Please note that as of 05/01/2023, the reference intervals for Ferritin have been updated. Blood 08/30/2023 9:52 AM EDT 08/30/2023 9:56 AM EDT Narrative Resulting Agency Comment Spec In Lab Jovani Richardson MD CHEMISTRY ORDERABLES Performing Organization Address [facility] Co de Phone Number [facility] [place] [address] * (ABNORMAL) PTH (08/30/2023 9:52 AM EDT) Parathyroid Hormone 145(H) 15 - 65 pg/mL [facility] Blood 08/30/2023 9:52 AM EDT 08/30/2023 9:56 AM EDT Narrative Resulting Agency Comment Spec In Lab Jovani Richardson MD CHEMISTRY ORDERABLES Performing Organization Address City/[facility] Co de Phone Number [facility] [place] [address] * Uric acid (08/30/2023 9:52 AM EDT) Uric Acid 8.2 3.5 - 8.5 mg/dL [facility] Blood 08/30/2023 9:52 AM EDT 08/30/2023 9:56 AM EDT Narrative Resulting Agency Comment Spec In Lab Jovani Richardson MD CHEMISTRY ORDERABLES Performing Organization Address City/[facility]/ZIP Co de Phone Number [facility] [place] [address] * Albumin Level (08/30/2023 9:52 AM EDT) Albumin 4.4 3.2 - 5.2 g/dL [facility] Blood 08/30/2023 9:52 AM EDT 08/30/2023 9:56 AM EDT Narrative Resulting Agency Comment Spec In Lab Jovani Richardson MD CHEMISTRY ORDERABLES [facility] [place] [address] * Phosphorus (08/30/2023 9:52 AM EDT) Phosphorus 3.8 2.5 - 4.5 mg/dL [facility] Blood 08/30/2023 9:52 AM EDT 08/30/2023 9:56 AM EDT Narrative Resulting Agency Comment Spec In Lab Jovani Richardson MD CHEMISTRY ORDERABLES Performing Organization Address City/[facility]/ZIP Co de Phone Number [facility] [place] [address] * (ABNORMAL) Basic Metabolic Panel (non-fasting) (08/30/2023 9:52 AM EDT) Glucose 61(L) 65 - 199 mg/dL [facility] Comment:Diabetes: >=200 mg/d L plus symptoms Blood Urea Nitrogen 49(H) 10 - 20 mg/dL [facility] Creatinine 3.21(H) 0.80 - 1.50 mg/dL [facility] Sodium 140 135 - 145 mmol/L [facility] Potassium 5.0 3.5 - 5.0 mmol/L [facility] Comment: Please note: ??Patients with WBC >100,000 may have falsely elevated Potassium levels. ??For accurate Potassium quantification in these patients send serum separator tube (gold top) for subsequent determinations. ??Contact the Clinical Chemistry Laboratory if there are any questions. Chloride 109(H) 98 - 107 mmol/L [facility] Carbon Dioxide 17(L) 22 - 31 mmol/L [facility] Anion Gap 14 5 - 15 mmol/L [facility] Calcium 8.7 8.5 - 10.5 mg/dL [facility] Est Glomerular Filtration Rate 20(L) >=60 mL/min/1. 73 m?? [facility] [...] Richardson MD CHEMISTRY ORDERABLES Performing Organization Address City/State/[facility] Co de Phone Number [facility] [place] [address] documented in this encounter Visit Diagnoses Diagnosis CKD (chronic kidney disease) stage 4, GFR 15-29 ml/min Chronic kidney disease, Stage IV (severe) Sharma's esophagus with high grade dysplasia Sharma's esophagus documented in this encounter Care Teams Orthopedic Specialist Relationship Specialty Start Date End Date Slade Tran MD PCP - General Family Medicine 06/19/22 11/05/23 documented as of this encounter
--- OUTSIDE RECORDS SUMMARY | 2024-06-08 12:47 | XMS_ITS | Encounter Summary ---
Author Organization [facility]ly [facility] [place] [address] Care Team Providers Care Levers Lace Machine Operator Name Role Phone Dio, Jovani MCCAIN Primary Care Provider Encounter Details Date Type Department Care Team (Latest Contact Info) Description 06/27/2021 1:00 PM EST Laboratory Appointment Lab [address] [place] [phone] CKD (chronic kidney disease) stage 4, GFR [...] EST Clinical Support [place] [address]1000 06/19/2024 2:00 PM EST Office [place] [address]1000 Pepe Horton MD [facility] [place] [address] 08/10/2024 10:00 AM EDT Laboratory Appointment Lab [address] [place] [phone] 08/10/2024 11:20 AM EDT Office Visit [place] [address] Jovani Richardson MD [facility] [place] [address] A, Nurse Clinician None 08/20/2024 7:30 AM EDT Hospital Encounter Gastroenterology at [address] Lawrence Gar MD [facility] [place] [address] 08/20/2024 7:30 AM EDT - 08/20/2024 8:15 AM EDT Surgery Gastroenterology at [place] [phone] Lawrence Gar MD [facility] [place] [address] EGD, UPPER GI ENDOSCOPY (WRVU 2.09) 11/17/2024 4:20 PM EDT Office Visit Gastroenterology at [place] [phone] Lawrence Gar MD [facility] [place] [address] Scheduled Procedures Name Priority Associated Diagnoses Date/Ti [...] 1:21 PM EST) Neutrophil % 67.1 % [facility] Neutrophil Absolute 4.41 1.70 - 6.10 x10(3)/[facility] Lymph % 15.1 % [facility] Lymphocytes Abs 1.0 0.9 - 3.2 x10(3)/[facility] Monocyte % 10.5 % [facility] Monocyte Abs 0.7 0.3 - 0.9 x10(3)/[facility] Eos % 6.1 % [facility] Eosinophils Abs 0.4 0.0 - 0.4 x10(3)/[facility] Basophil % 0.9 % [facility] Baso Absolute 0.1 0.0 - 0.1 x10(3)/[facility] Immature Gran % 0.30 % [facility] Comment: Immature granulocytes(IG's)percentage and absolute count will include metamyelocytes, myelocytes, and promyelocytes. Blood smears from CBCs yielding IG's will be scanned manually for concordance. If this scan disagrees with the automated IG or if promyelocytes are noted, a manual differential will be performed. Immature Gran Absolute 0.02 0.00 - 0.04 x10(3)/[facility] Blood 06/27/2021 1:21 PM EST 06/27/2021 1:27 PM EST Narrative Resulting Agency Comment Spec In Lab Divine Hernandez HOURLY SHIFT MANAGER HEMATOLOGY ORDERA BLES [facility] [place] [address] * (ABNORMAL) Hemogram (06/27/2021 1:21 PM EST) White Blood Cell 6.6 4.0 - 9.5 x10(3)/mc L [facility] Red Blood Cell 3.38(L) 4.58 - 5.54 x10(6)/mc L [facility] Hemoglobin 10.6(L) 13.7 - 16.5 g/dL [facility] Hematocrit 31.6(L) 40.5 - 48.5 % [facility] Mean Cell Volume 93.5(H) 82.9 - 93.[address] [facility] Mean Cell Hemoglobin 31.4 27.5 - 32.[address] [facility] Mean Cell Hemoglobin Concentration 33.5 32.0 - 35.7 g/dL [facility] Platelet 254 145 - 357 x10(3)/mc L [facility] RDW Standard Deviation 47.0(H) 36.0 - 45.[address] [facility] RDW coefficient of variation 13.7 11.4 - 13.8 % [facility] Mean Platelet Volume 10.6 7.6 - 12.[address] [facility] NRBC% auto 0.0 % [facility] NRBC Absolute 0.000 0.000 - 0.000 x10(3)/mc L [facility] Blood 06/27/2021 1:21 PM EST 06/27/2021 1:27 PM EST Narrative Resulting Agency Comment Spec In Lab Divine Hernandez HOURLY SHIFT MANAGER HEMATOLOGY ORDERA BLES Performing Organization Address City/State/[facility] Co de Phone Number [facility] [place] [address] * (ABNORMAL) Basic Metabolic Panel (non-fasting) (06/27/2021 1:21 PM EST) Glucose 101 65 - 199 mg/dL [facility] Comment:Diabetes: >=200 mg/d L plus symptoms Blood Urea Nitrogen 43(H) 10 - 20 mg/dL [facility] Creatinine 2.62(H) 0.80 - 1.50 mg/dL [facility] Sodium 139 135 - 145 mmol/L [facility] Potassium 4.4 3.5 - 5.0 mmol/L [facility] Comment: Please note: ??Patients with WBC >100,000 may have falsely elevated Potassium levels. ??For accurate Potassium quantification in these patients send serum separator tube (gold top) for subsequent determinations. ??Contact the Clinical Chemistry Laboratory if there are any questions. Chloride 109(H) 98 - 107 mmol/L [facility] Carbon Dioxide 17(L) 22 - 31 mmol/L [facility] Anion Gap 13 5 - 15 mmol/L [facility] Calcium 9.2 8.5 - 10.5 mg/dL [facility] Est Glomerular Filtration Rate 24(L) >=60 mL/min/1. 73 m?? [facility] Comment: This patient? s estimated [...] Comment Spec In Lab Divine L Mary HOURLY SHIFT MANAGER CHEMISTRY ORDERAB LES [facility] [place] [address] * Albumin Level (06/27/2021 1:21 PM EST) Albumin 4.5 3.2 - 5.2 g/dL [facility] Blood 06/27/2021 1:21 PM EST 06/27/2021 1:28 PM EST Narrative Resulting Agency Comment Spec In Lab Divine L Mary HOURLY SHIFT MANAGER CHEMISTRY ORDERAB LES [facility] [place] [address] * Phosphorus (06/27/2021 1:21 PM EST) Phosphorus 3.0 2.5 - 4.5 mg/dL [facility] Blood 06/27/2021 1:21 PM EST 06/27/2021 1:28 PM EST Narrative Resulting Agency Comment Spec In Lab Divine Hernandez HOURLY SHIFT MANAGER CHEMISTRY ORDERAB LES Performing Organization Address [facility] Co de Phone Number [facility] [place] [address] * (ABNORMAL) PTH (06/27/2021 1:21 PM EST) Parathyroid Hormone 98(H) 15 - 65 pg/mL [facility] Blood 06/27/2021 1:21 PM EST 06/27/2021 1:27 PM EST Narrative Resulting Agency Comment Spec In Lab Divine Hernandez HOURLY SHIFT MANAGER CHEMISTRY ORDERAB LES Performing Organization Address [facility] Co de Phone Number [facility] [place] [address] * (ABNORMAL) Protein/Creatinine Ratio, urine (06/27/2021 1:19 PM EST) Creatinine, Urine 147 mg/dL [facility] Protein, Urine 107(H) 0 - 12 mg/dL [facility] Protein / Creatinine Ratio, Urine 0.[address] [facility] Urine 06/27/2021 1:19 PM EST 06/27/2021 1:30 PM EST Narrative Resulting Agency Comment Spec In Lab Divine Hernandez HOURLY SHIFT MANAGER URINE ORDERABLES Performing Organization Address [facility] Co de Phone Number [facility] [place] [address] * (ABNORMAL) Urinalysis without microscopic (06/27/2021 1:19 PM EST) Glucose, Urine Dipstick Negative Negative mg/dL [facility] Protein, Urine Dipstick 100(A) Negative mg/dL [facility] Bilirubin, Urine Dipstick Negative Negative mg/dL [facility] Comment: Clinical correlation required for positive Urine Bilirubin results as false positive may occur with some drugs and drug related products. If a false positive is suspected a serum total bilirubin should be considered if clinically indicated. Urobilinogen, Urine Dipstick Normal Normal mg/dL [facility] pH, Urn (dipstick) 5.5 5.0 - 8.0 [facility] Blood, Urine Dipstick Negative Negative mg/dL [facility] Ketone, Urine Dipstick Trace(A) Negative mg/dL [facility] Nitrite, Urine Dipstick Negative Negative [facility] Leukocytes, Urine Dipstick Negative Negative [facility] Appearance, Urine Dipstick Clear Clear [facility] Specific [place] Urine Automated 1.018 1.005 - 1.030 [facility] Color, Urine Dipstick Yellow Yellow [facility] Urine 06/27/2021 1:19 PM EST 06/27/2021 1:30 PM EST Narrative Resulting Agency Comment Spec In Lab Divine Hernandez APRN URINE ORDERABLES [facility] [place] [address] documented in this encounter Visit Diagnoses Diagnosis CKD (chronic kidney disease) stage 4, GFR 15-29 ml/min Chronic kidney disease, Stage IV (severe) Sharma's esophagus with high grade dysplasia Sharma's esophagus documented in this encounter Care Teams Levers Lace Machine Operator Relationship Specialty Start Date End Date Jovani Wharton DO [address] [place] [address] PCP - General Family Medicine 10/18/16 06/18/22 documented as of this encounter
--- OUTSIDE RECORDS SUMMARY | 2024-06-08 12:47 | XMS_ITS | Encounter Summary ---
Author Organization [facility] [place] [address] Care Team Providers Care Distribution Collection Operator Name Role Phone Jovani Wharton DO Primary Care Provider Encounter Details Date Type Department Care Team (Late st Contact Info) Description 07/23/2021 9:15 PM EST Ancillary Procedure Radiology Library at [facility] [place] [phone] Jovani Wharton DO [address] [place], [place] [address] Social History Tobacco Use Types Packs/Day Years [...] EST Clinical Support [place] [phone] 06/19/2024 2:00 PM EST Office Visit [place] [phone] Pepe Horton MD [facility] [place] [address] 08/10/2024 10:00 AM EDT Laboratory Appointment Lab [address] [place] [address] 08/10/2024 11:20 AM EDT Office Visit Nephrology Hypertension at [address]1000 Jovani Richardson MD [facility] [place] [address] A, Nurse Clinician None 08/20/2024 7:30 AM EDT Hospital Encounter Gastroenterology at [place] [address] Lawrence Gar MD [facility] [place] [address] 08/20/2024 7:30 AM EDT - 08/20/2024 8:15 AM EDT Surgery Gastroenterology at [place] [address] Lawrence Gar MD [facility] [place] [address] EGD, UPPER GI ENDOSCOPY (WRVU 2.09) 11/17/2024 4:20 PM EDT Office [place] [address] Lawrence Gar MD [facility] [place] [address] Scheduled Procedures Name Priority Associated Diagnoses Date/Ti [...] is for storage only. Jovani Wharton DO [facility] FILM LIBRARY ORD ERABLES Performing Organization Address City/State/[facility] Co de Phone Number [place], [place] documented in this encounter Visit Diagnoses Not on filedocumented in this encounter Care Teams Distribution Collection Operator Relationship Specialty Start Date End Date Jovani Wharton DO [address] [place] [address] PCP - General Family Medicine 10/18/16 06/18/22 documented as of this encounter
--- OUTSIDE RECORDS SUMMARY | 2024-06-08 12:47 | XMS_ITS | Encounter Summary ---
[place] [address] Care Team Providers Care Critical Power Install Technician Name Role Phone Slade Tran MD Primary Care Provider [phone] Encounter Details Date Type Department Care Team (Late st Contact Info) Description 08/30/2023 [place] [phone] Nena Edwards Social History Tobacco Use Types [...] - 08/30/2023 10:15 AM EDT Mathew Mendez [id number] Diagnosis/Indication: 3 year Please review patient chart [...] before? Yes: Date colo 5/27/21 , egd [facility] over 5 years If yes, did [...] procedure. Who will likely be your driver helper for the procedure? *Please Verify the height [...] EST Clinical Support [place] [address] 06/19/2024 2:00 PM EST Office [place] [address] [facility] [place] [address] 08/10/2024 10:00 AM EDT Laboratory Appointment Lab [address] [place] [address] 08/10/2024 11:20 AM EDT Office Visit [place] [address] [facility] [place] [address] A, Nurse Clinician None 08/20/2024 7:30 AM EDT Hospital Encounter Gastroenterology at [place] [phone] [facility] [place] [address] 08/20/2024 7:30 AM EDT - 08/20/2024 8:15 AM EDT Surgery Gastroenterology at [place] [phone] [facility] [place] [address] EGD, UPPER GI ENDOSCOPY (WRVU 2.09) 11/17/2024 4:20 PM EDT Office Visit Gastroenterology at [place] [phone] [facility] [place] [address] Scheduled Procedures Name Priority Associated Diagnoses Date/Ti me EGD, UPPER GI ENDOSCOPY (WRVU 2.09) Sharma's esophagus with high grade dysplasia 08/20/2024 7:30 AM EDT documented as of this encounter Visit Diagnoses Not on filedocumented in this encounter Care Teams Critical Power Install Technician Relationship Specialty Start Date End Date Slade Tran MD PCP - General Family Medicine 06/19/22 11/05/23 documented as of this encounter
--- OUTSIDE RECORDS SUMMARY | 2024-06-08 12:47 | XMS_ITS | Encounter Summary ---
Author Organization [facility] [place] [address] Care Team Providers Care Spanish Professor Name Role Phone Slade Tran MD Primary Care Provider [phone] Encounter Details Date Type Department Care Team (Latest Contact Info) Description 08/30/2022 9:34 PM EDT - 08/30/2022 11:59 PM EDT Hospital [place] [address] Discharge Disposition: Home Social History Tobacco Use [...] Units by mouth once a week. 08/31/2022 atswdg-nqbhvyie-yrpsnhi DR (Creon 6) 6,000-19,000 -30,[address] [...] EST Clinical Support [place] [address] 06/19/2024 2:00 PM EST Office [place] [address] Pepe Horton MD [facility] [place] [address] 08/10/2024 10:00 AM EDT Laboratory Appointment Lab [address] [address] 08/10/2024 11:20 AM EDT Office Visit Nephrology Hypertension at [place] [phone] Jovani Richardson MD [facility] [place] [address] A, Nurse Clinician None 08/20/2024 7:30 AM EDT Hospital Encounter Gastroenterology at [address]1000 Lawrence Gar MD [facility] [place] [address] 08/20/2024 7:30 AM EDT - 08/20/2024 8:15 AM EDT Surgery Gastroenterology at [address]1000 Lawrence Gar MD [facility] [place] [address] EGD, UPPER GI ENDOSCOPY (WRVU 2.09) 11/17/2024 4:20 PM EDT Office [place] [address] Lawrence Gar MD [facility] [place] [address] Scheduled Procedures Name Priority Associated Diagnoses Date/Ti me EGD, UPPER GI ENDOSCOPY (WRVU 2.09) Sharma's esophagus with high grade dysplasia 08/20/2024 7:30 AM EDT documented as of this encounter Procedures Procedure Name Priority Date/Time Associated Diagnosis Comments SURGICAL PATHOLOGY REPORT Routine 08/30/2022 9:39 AM EDT documented in this encounter Results * Surgical Pathology Report (08/30/2022 9:39 AM EDT) Final Diagnosis [id number] ? Location: [facility] The signing pathologist has (i) examined the relevant preparation(s) for the specimen(s) and (ii) rendered or confirmed the diagnosis(es). . ?Surgical Pathology DIAGNOSIS A - Right second (hammer)toe (gross surgical pathology examination). Electronically signed by: ?Aurelia HENDRICKS, Nilo Renner Verified: ??09/03/2022 13:06 ??Pathologist Performed at: ??-[facility] Dept. of Pathology, [place] [address] Bindery Operator: Deana Lopez MD, AP, ??CLIA Certificate: [id number] SPECIMEN(S) SUBMITTED A - Right second toe Referring Identifier: [id number] CLINICAL INFORMATION Right second toe deformity. SPECIMEN PROCESSING A - Labeled/Fixativ e: ?? Right second toe, formalin. 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 Lesion: Hammertoe deformity of the PIP joint. Nail: Unremarkable. Skin: Unremarkable. Sections/Proces sing: ?? No sections submitted, gross diagnosis only. ??sns 09/03/2022 1:06 PM EDT [facility] TOE STRUCTURE / Unknown 08/30/2022 9:39 AM EDT 08/30/2022 9:39 AM EDT Narrative Resulting Agency Comment Spec In Lab / WKS Karen Lopez DPJodi PATHOLOGY/CYTOLOGY O RDERABLES [facility] [place] [phone] [facility] [place] [address] documented in this encounter Visit Diagnoses Not on filedocumented in this encounter Care Teams Spanish Professor Relationship Specialty Start Date End Date Slade Tran MD PCP - General Family Medicine 06/19/22 11/05/23 documented as of this encounter
--- OUTSIDE RECORDS SUMMARY | 2024-06-08 12:47 | XMS_ITS | Encounter Summary ---
Author Organization [facility] Address [facility] [place] [address] Care Team Providers Care Welding Equipment Repairer Name Role Phone Slade Tran MD Primary Care Provider [phone] Encounter Details Date Type Department Care Team (Latest Contact Info) Description 04/09/2023 10:40 AM EST Office Visit [place] [address] Jovani Richardson MD [facility] [place] [place] [address] A, Nurse Clinician None CKD (chronic kidney [...] Richardson MD - 04/09/2023 10:40 AM EST [facility] [address] [facility] [address] [place] [address] Reason for Clinic Visit: Systems Review and [...] tablet Take 50 mg by mouth daily. nuqrmd-mazxxkuu-xbktkna DR (Creon 6) 6,000-19,000 -30,[address] [...] for CKD stage- specific issues. 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 Cr up slightly in the face of starting Jiardiance. 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 RN Notes: MD/PSYCHIATRIC TECHNICIAN ASSISTANT A/P: continue current medications. K has normalized; will consider transitioning from lisinopril/amlodipine to lisinopril monotherapy if K remains well controlled. Problem: Proteinuria Prot/Cre Ratio (ratio) Date Value 01/21/2023 1.5 Goal: <0.2mg/mg RN Notes: MD/PSYCHIATRIC TECHNICIAN ASSISTANT A/P: continue lisinopril, SGLT-2 inhibitor Problem: Bone [...] on calcium carbonate Goal: 8.5-10.5mg/dl RN Notes: MD/PSYCHIATRIC TECHNICIAN ASSISTANT A/P: continue calcitriol Problem: Nutrition Albumin Date Value 01/21/2023 4.3 g/dL 06/27/2021 4.5 g/dL 04/20/2020 4.5 gm/dL Goal: >/= 4.0 gm/dl There is no height or weight on file to calculate BMI. Goal: 20-25 kg/m2 RN Notes: /PSYCHIATRIC TECHNICIAN ASSISTANT A/P: Problem: Dyslipidemia No results found for: LDLCHOL Goal: <100 mg/dl No results found for: TRIG Goal: <150 mg/dl Not on statin Not on ezetimibe RN Notes: MD/PSYCHIATRIC TECHNICIAN ASSISTANT A/P: defer lipid management to Dr. Tran. Return to CKD clinic: 3 months documented in this encounter Plan of Treatment Upcoming Encounters Date Type Department Care Team (Latest Contact Info) Description 06/19/2024 1:40 PM EST Clinical Support [place] [address] 06/19/2024 2:00 PM EST Office Visit Solid Organ Transplant at [place] [address] Pepe Horton MD [facility] [place] [address] 08/10/2024 10:00 AM EDT Laboratory Appointment Lab [address] [place] [address] 08/10/2024 11:20 AM EDT Office Visit Nephrology Hypertension at [place] [address] Jovani Richardson MD [facility] [place] [place] [address] A, Nurse Clinician None 08/20/2024 7:30 AM EDT Hospital Encounter Gastroenterology at [place] [phone] Lawrence Gar MD [facility] [place] [address] 08/20/2024 7:30 AM EDT - 08/20/2024 8:15 AM EDT Surgery Gastroenterology at [place] [phone] Lawrence Gar MD [facility] [place] [address] EGD, UPPER GI ENDOSCOPY (WRVU 2.09) 11/17/2024 4:20 PM EDT Office [place] [address] Lawrence Gar MD [facility] [place] [address] Scheduled Procedures Name Priority Associated Diagnoses Date/Ti [...] esophagus documented in this encounter Care Teams Welding Equipment Repairer Relationship Specialty Start Date End Date Slade Tran MD PCP - General Family Medicine 06/19/22 11/05/23 documented as of this encounter
--- OUTSIDE RECORDS SUMMARY | 2024-06-08 12:47 | XMS_ITS | Encounter Summary ---
Author Organization [facility] [place] [address] Care Team Providers Care Molder Shoulder Pad Name Role Phone Jovani Wharton DO Primary Care Provider Encounter Details Date Type Department Care Team (Late st Contact Info) Description 07/25/2021 Ancillary Procedure Radiology Library at [facility] [place] [address] Jovani Wharton DO [address] [place], [place] [address] Social History Tobacco Use Types Packs/Day Years [...] EST Clinical Support [place] [address]-1000 06/19/2024 2:00 PM EST Office [place] [address]-1000 Pepe Horton MD [facility] [place] [address] 08/10/2024 10:00 AM EDT Laboratory Appointment Lab [address] [place] [address] 08/10/2024 11:20 AM EDT Office Visit Nephrology Hypertension at [place] [address] Jovani Richardson MD [facility] [place] [address] A, Nurse Clinician None 08/20/2024 7:30 AM EDT Hospital Encounter Gastroenterology at [place] [address] Lawrence Gar MD [facility] [place] [address] 08/20/2024 7:30 AM EDT - 08/20/2024 8:15 AM EDT Surgery Gastroenterology at [place] [phone] Lawrence Gar MD [facility] [place] [address] EGD, UPPER GI ENDOSCOPY (WRVU 2.09) 11/17/2024 4:20 PM EDT Office Visit Gastroenterology at [place] [phone] Lawrence Gar MD [facility] [place] [address] Scheduled Procedures Name Priority Associated Diagnoses Date/Ti [...] DX Chest (07/25/2021 12:00 AM EST) Narrative [facility] - 07/26/2021 8:53 AM EST This exam is auto-finalizing. It's purpose is for storage only. Jovani [place] FILM LIBRARY ORD ERABLES Performing Organization Address City/State/[facility] Co de Phone Number [place], [place] documented in this encounter Visit Diagnoses Not on filedocumented in this encounter Care Teams Molder Shoulder Pad Relationship Specialty Start Date End Date Jovani Wharton DO [address] [place] [address] PCP - General Family Medicine 10/18/16 06/18/22 documented as of this encounter
--- OUTSIDE RECORDS SUMMARY | 2024-06-08 12:47 | XMS_ITS | Encounter Summary ---
Author Organization [facility] Address [facility] [place] [address] Care Team Providers Care Engineering Test Specialist Name Role Phone Slade Tran MD Primary Care Provider [phone] Encounter Details Date Type Department Care Team [...] EST Clinical Support [place] [address] 06/19/2024 2:00 PM EST Office [place] [address] Pepe Horton MD [facility] [place] [address] 08/10/2024 10:00 AM EDT Laboratory Appointment Lab [address] [place] [address] 08/10/2024 11:20 AM EDT Office Visit Nephrology Hypertension at [place] [phone] Jovani Richardson MD [facility] [place] [address] A, Nurse Clinician None 08/20/2024 7:30 AM EDT Hospital Encounter Gastroenterology at [place] [address] Lawrence Gar MD [facility] [place] [address] 08/20/2024 7:30 AM EDT - 08/20/2024 8:15 AM EDT Surgery Gastroenterology at [place] [phone] Lawrence Gar MD [facility] [place] [address] EGD, UPPER GI ENDOSCOPY (WRVU 2.09) 11/17/2024 4:20 PM EDT Office Visit Gastroenterology at [place] [phone] Lawrence Gar MD [facility] [place] [address] Scheduled Procedures Name Priority Associated Diagnoses Date/Ti me EGD, UPPER GI ENDOSCOPY (WRVU 2.09) Sharma's esophagus with high grade dysplasia 08/20/2024 7:30 AM EDT documented as of this encounter Visit Diagnoses Not on filedocumented in this encounter Care Teams Engineering Test Specialist Relationship Specialty Start Date End Date Slade Tran MD PCP - General Family Medicine 06/19/22 11/05/23 documented as of this encounter
--- OUTSIDE RECORDS SUMMARY | 2024-06-08 12:47 | XMS_ITS | Encounter Summary ---
Author Organization [facility] [place] [address] Care Team Providers Care College Director Name Role Phone Jovani Wharton DO Primary Care Provider Encounter Details Date Type Department Care Team (Late st Contact Info) Description 07/26/2021 8:55 AM EST Ancillary Procedure Radiology Library at [facility] [place] [address] Jovani Wharton DO [address] [place], [place] [address] Social History Tobacco Use Types Packs/Day Years [...] EST Clinical Support [place] [phone] 06/19/2024 2:00 PM EST Office [place] [address]-1000 Pepe Horton MD [facility] [place] [address] 08/10/2024 10:00 AM EDT Laboratory Appointment Lab [address] [place] [address] 08/10/2024 11:20 AM EDT Office Visit Nephrology Hypertension at [address] Jovani Richardson MD [facility] [place] [address] A, Nurse Clinician None 08/20/2024 7:30 AM EDT Hospital Encounter Gastroenterology at [place] [address] Lawrence Gar MD [facility] [place] [address] 08/20/2024 7:30 AM EDT - 08/20/2024 8:15 AM EDT Surgery Gastroenterology at [place] [address] Lawrence Gar MD [facility] [place] [address] EGD, UPPER GI ENDOSCOPY (WRVU 2.09) 11/17/2024 4:20 PM EDT Office [place] [address] Lawrence Gar MD [facility] [place] [address] Scheduled Procedures Name Priority Associated Diagnoses Date/Ti [...] DX Chest (07/26/2021 8:53 AM EST) Narrative [facility] - 07/26/2021 8:53 AM EST This exam is auto-finalizing. It's purpose is for storage only. Jovani Wharton DO [facility] FILM LIBRARY ORD ERABLES Performing Organization Address City/State/[facility] Co de Phone Number [place], [place] documented in this encounter Visit Diagnoses Not on filedocumented in this encounter Care Teams College Director Relationship Specialty Start Date End Date Jovani Wharton DO [address] [place] [address] PCP - General Family Medicine 10/18/16 06/18/22 documented as of this encounter
--- OUTSIDE RECORDS SUMMARY | 2024-06-08 12:47 | XMS_ITS | Encounter Summary ---
Author Organization [facility] Address [facility] [address] Care Team Providers Care Clay Dry Press Mixer Operator Name Role Phone Slade Tran MD Primary Care Provider Encounter Details Date Type Department Care Team (Latest Contact Info) Description 08/30/2023 11:30 AM EDT Office Visit [place] [address] Jovani Richardson MD [facility] [place] [address] CKD (chronic kidney disease) stage 4, GFR [...] 11:30 AM EDT Nephrology/Hypertension Clinic Follow-up Note [id number] ID: 68 y.o.year-old male for follow up [...] a severe episode of abdominal pain in [place] in June that landed himin the ED. [...] EST Clinical Support [place] [address] 06/19/2024 2:00 PM EST Office [place] [address] Pepe Horton MD [facility] [place] [address] 08/10/2024 10:00 AM EDT Laboratory Appointment Lab [address] [place] [address] 08/10/2024 11:20 AM EDT Office Visit [place] [address] Jovani Richardson MD [facility] [place] [address] A, Nurse Clinician None 08/20/2024 7:30 AM EDT Hospital En[place] [phone] Lawrence Gar MD [facility] [place] [address] 08/20/2024 7:30 AM EDT - 08/20/2024 8:15 AM EDT [place] [address] Lawrence Gar MD [facility] [place] [address] EGD, UPPER GI ENDOSCOPY (WRVU 2.09) 11/17/2024 4:20 PM EDT Office [place] [address] Lawrence Gar MD [facility] [place] [place] [address] Scheduled Orders Name Type Priority Associated Diagnoses [...] Vitamin D, 25-Hydroxy (11/06/2023 7:37 AM EDT) [facility] Vitamin D Total 25 OH 20(L) 21 - 100 ng/mL [facility] Vit D Interp Deficient [facility] Blood 11/06/2023 7:37 AM EDT 11/06/2023 7:49 AM EDT Narrative Resulting Agency Comment Spec In Lab Jovani Richardson MD CHEMISTRY ORDERABLES [facility] [place] [address] * Iron and TIBC (11/06/2023 7:37 AM EDT) [facility] Iron 80 45 - 160 mcg/dL [facility] TIBC 266 250 - 450 mcg/dL [facility] Iron Saturation 30 20 - 50 % [facility] Blood 11/06/2023 7:37 AM EDT 11/06/2023 7:49 AM EDT Narrative Resulting Agency Comment Spec In Lab Jovani Richardson MD CHEMISTRY ORDERABLES [facility] [place] [address] * Ferritin (11/06/2023 7:37 AM EDT) Ferritin 97 31 - 409 ng/mL [facility] Comment: Please note that as of 05/01/2023, the reference intervals for Ferritin have been updated. Blood 11/06/2023 7:37 AM EDT 11/06/2023 7:49 AM EDT Narrative Resulting Agency Comment Spec In Lab Jovani Richardson MD CHEMISTRY ORDERABLES Performing Organization Address City/[facility]/ZIP Co de Phone Number [facility] [place] [address] * (ABNORMAL) PTH (11/06/2023 7:37 AM EDT) Parathyroid Hormone 113(H) 15 - 65 pg/mL [facility] Blood 11/06/2023 7:37 AM EDT 11/06/2023 7:49 AM EDT Narrative Resulting Agency Comment Spec In Lab Jovani Richardson MD CHEMISTRY ORDERABLES Performing Organization Address [facility] Co de Phone Number [facility] [place] [address] documented in this encounter Visit Diagnoses Diagnosis CKD (chronic kidney disease) stage 4, GFR 15-29 ml/min- Primary Chronic kidney disease, Stage IV (severe) Primary hypertension Unspecified essential hypertension Anemia of chronic renal failure, stage 4 (severe) Acidosis, metabolic Acidosis Sharma's esophagus with high grade dysplasia Sharma's esophagus documented in this encounter Care Teams Clay Dry Press Mixer Operator Relationship Specialty Start Date End Date Slade Tran MD PCP - General Family Medicine 06/19/22 11/05/23 documented as of this encounter
--- OUTSIDE RECORDS SUMMARY | 2024-06-08 12:47 | XMS_ITS | Encounter Summary ---
Author Organization [facility] Address [facility] [place] [address] Care Team Providers Care School Admissions Representative Name Role Phone Slade Tran MD Primary Care Provider [phone] Encounter Details Date Type Department Care Team [...] EST Clinical Support [place] [address] 06/19/2024 2:00 PM EST Office Visit [place] [address] Pepe Horton MD [facility] [place] [address] 08/10/2024 10:00 AM EDT Laboratory Appointment Lab [address] [place] [address] 08/10/2024 11:20 AM EDT Office Visit Nephrology Hypertension at [place] [phone] Jovani Richardson MD [facility] [place] [place] [address] A, Nurse Clinician None 08/20/2024 7:30 AM EDT Hospital Encounter Gastroenterology at [place] [address] Lawrence Gar MD [facility] [place] [address] 08/20/2024 7:30 AM EDT - 08/20/2024 8:15 AM EDT Surgery Gastroenterology at [place] [phone] Lawrence Gar MD [facility] [place] [address] EGD, UPPER GI ENDOSCOPY (WRVU 2.09) 11/17/2024 4:20 PM EDT Office Visit Gastroenterology at [place] [phone] Lawrence Gar MD [facility] [place] [address] Scheduled Procedures Name Priority Associated Diagnoses Date/Ti me EGD, UPPER GI ENDOSCOPY (WRVU 2.09) Sharma's esophagus with high grade dysplasia 08/20/2024 7:30 AM EDT documented as of this encounter Visit Diagnoses Not on filedocumented in this encounter Care Teams School Admissions Representative Relationship Specialty Start Date End Date Slade Tran MD PCP - General Family Medicine 06/19/22 11/05/23 documented as of this encounter
--- OUTSIDE RECORDS SUMMARY | 2024-06-08 12:47 | XMS_ITS | Encounter Summary ---
Author Organization [facility] Address [facility] [place] [address] Care Team Providers Care Triage Clinician Name Role Phone Slade Tran MD Primary Care Provider [phone] Encounter Details Date Type Department Care Team (Late st Contact Info) Description 09/25/2022 4:20 PM EDT Office [place] [address] Lawrence Gar MD [facility] [place] [address] Alcohol-induced chronic pancreatitis Social History Tobacco Use [...] for which she underwent emergency surgery in [facility] but was then transferred to [facility] because of prolonged postoperative issues regarding gastric emptying. His symptomseventually improved after what sounds like a second operation was performed at [facility] for hiatal hernia repair and perhaps [...] a hammer toe. His general surgeon at [facility] is considering repair of a postoperative incisional hernia as well. Current Outpatient Medications on File Prior to Visit Medication Sig Dispense Refill ??? metoprolol succinate XL (Toprol-XL) 50 mg ER 24 hr tablet Take 50 mg by mouth daily. ??? figdkn-wyvdqcaj-zixegpv (Cresadi 6) 6,000-19,000 -30,[address] capsule [...] care regarding chronic pancreatitis. Lawrence Gar MD safety engineer Director, GI Endoscopy Section of [place]enter[place] [address] Cc:Slade Tran MD [address] [place] [address] [facility] [place] [address] documented in this encounter Plan of Treatment Upcoming Encounters Date Type Department Care Team (Latest Contact Info) Description 06/19/2024 1:40 PM EST Clinical Support [place] [address] 06/19/2024 2:00 PM EST Office Visit [place] [address]-1000 Pepe Horton MD [facility] [place] [address] 08/10/2024 10:00 AM EDT Laboratory Appointment Lab [address] [place] [address] 08/10/2024 11:20 AM EDT Office Visit Ne[place] [address]-1000 Jovani Richardson MD [facility] [place] [address] A, Nurse Clinician None 08/20/2024 7:30 AM EDT Hospital Encounter Gastroenterology at [place] [phone] aLwrence Gar MD [facility] [place] [address] 08/20/2024 7:30 AM EDT - 08/20/2024 8:15 AM EDT Surgery [place] [address] Lawrence Gar MD [facility] [place] [address] EGD, UPPER GI ENDOSCOPY (WRVU 2.09) 11/17/2024 4:20 PM EDT Office [place] [address] Lawrence Gar MD [facility] [place] [address] Scheduled Procedures Name Priority Associated Diagnoses Date/Ti me EGD, UPPER GI ENDOSCOPY (WRVU 2.09) Sharma's esophagus with high grade dysplasia 08/20/2024 7:30 AM EDT documented as of this encounter Visit Diagnoses Diagnosis Alcohol-induced chronic pancreatitis Chronic pancreatitis Sharma's esophagus with high grade dysplasia Sharma's esophagus documented in this encounter Care Teams Triage Clinician Relationship Specialty Start Date End Date Slade Tran MD PCP - General Family Medicine 06/19/22 11/05/23 documented as of this encounter
--- OUTSIDE RECORDS SUMMARY | 2024-06-08 12:47 | XMS_ITS | Encounter Summary ---
Author Organization [facility] Address [facility] [place] [address] Care Team Providers Care Bone Crusher Name Role Phone Slade Tran MD Primary Care Provider [phone] Encounter Details Date Type Department Care Team (Latest Contact Info) Description 01/21/2023 2:00 PM EDT Office Visit [place] [address] Jovani Richardson MD [facility] [place] [address] CKD (chronic kidney disease) stage 4, GFR [...] 2:00 PM EDT Nephrology/Hypertension Clinic Follow-up Note [id number] ID: 67 y.o.year-old male for follow up [...] Tablet Take 5 mg by mouth daily. jjvmea-mkwxxdro-smkhfya DR (Creon 6) 6,000-19,000 -30,[address] [...] EST Clinical Support [place] [address] 06/19/2024 2:00 PM EST Office Visit [place] [address]-1000 Pepe Horton MD [facility] [place] [address] 08/10/2024 10:00 AM EDT Laboratory Appointment Lab [address] [place] [address]-1000 08/10/2024 11:20 AM EDT Office Visit Ne[place] [address]-1000 Jovani Richardson MD [facility] [place] [address] A, Nurse Clinician None 08/20/2024 7:30 AM EDT Hospital Encounter [place] [address] Lawrence Gar MD [facility] [place] [address] 08/20/2024 7:30 AM EDT - 08/20/2024 8:15 AM EDT Surgery [place] [address] Lawrence Gar MD [facility] [address] EGD, UPPER GI ENDOSCOPY (WRVU 2.09) 11/17/2024 4:20 PM EDT Office [place] [address] Lawrence Gar MD [facility] [address] Scheduled Procedures Name Priority Associated Diagnoses Date/Ti [...] esophagus documented in this encounter Care Teams Bone Crusher Relationship Specialty Start Date End Date Sldae Tran MD PCP - General Family Medicine 06/19/22 11/05/23 documented as of this encounter
--- OUTSIDE RECORDS SUMMARY | 2024-06-08 12:47 | XMS_ITS | Encounter Summary ---
[place] [address] Care Team Providers Care Supervisor [employer] Name Role Phone Slade Tran MD Primary Care Provider [phone] Encounter Details Date Type Department Care Team (Latest Contact Info) Description 01/21/2023 12:30 PM EDT Laboratory Appointment Lab 3L [place] [phone] Acute worsening of stage 4 chronic kidney [...] EST Clinical Support [place] [phone] 06/19/2024 2:00 PM EST Office [place] [phone] Pepe Horton MD [facility] [place] [address] 08/10/2024 10:00 AM EDT Laboratory Appointment Lab [address]L [place] [address] 08/10/2024 11:20 AM EDT Office Visit Nephrology Hypertension at [place] [address] Jovani Richardson MD [facility] [place] [address] A, Nurse Clinician None 08/20/2024 7:30 AM EDT Hospital Encounter Gastroenterology at [place] [address] Lawrence Gar MD [facility] [place] [address] 08/20/2024 7:30 AM EDT - 08/20/2024 8:15 AM EDT Surgery Gastroenterology at [place] [phone] Lawrence Gar MD [facility] [place] [address] EGD, UPPER GI ENDOSCOPY (WRVU 2.09) 11/17/2024 4:20 PM EDT Office Visit Gastroenterology at [place] [phone] Lawrence Gar MD [facility] [place] [address] Scheduled Procedures Name Priority Associated Diagnoses Date/Ti [...] 2:04 PM EDT) Creatinine, Urine 55 mg/dL [facility] Protein, Urine 84(H) 0 - 12 mg/dL [facility] Protein / Creatinine Ratio, Urine 1.5 ratio [facility] Urine 01/21/2023 2:04 PM EDT 01/21/2023 2:21 PM EDT Narrative Resulting Agency Comment Spec In Lab Jovani Richardson MD URINE ORDERABLES [facility] [place] [address] * (ABNORMAL) Urinalysis without microscopic (01/21/2023 2:04 PM EDT) Glucose, Urine Dipstick Negative Negative mg/dL [facility] Protein, Urine Dipstick 100(A) Negative mg/dL [facility] Bilirubin, Urine Dipstick Negative Negative mg/dL [facility] Comment: Clinical correlation required for positive Urine Bilirubin results as false positive may occur with some drugs and drug related products. If a false positive is suspected a serum total bilirubin should be considered if clinically indicated. Urobilinogen, Urine Dipstick Normal Normal mg/dL [facility] pH, Urn (dipstick) 6.0 5.0 - 8.0 [facility] Blood, Urine Dipstick Negative Negative mg/dL [facility] Ketone, Urine Dipstick Negative Negative mg/dL [facility] Nitrite, Urine Dipstick Negative Negative [facility] Leukocytes, Urine Dipstick Negative Negative mcL [facility] Appearance, Urine Dipstick Clear Clear [facility] Specific [place] Urine Automated 1.015 1.005 - 1.030 [facility] Color, Urine Dipstick Yellow Yellow [facility] Urine 01/21/2023 2:04 PM EDT 01/21/2023 2:21 PM EDT Narrative Resulting Agency Comment Spec In Lab Jovani Richardson [place] [address] * Differential, Automated (01/21/2023 12:55 PM EDT) Neutrophil % 65.6 % [facility] Neutrophil Absolute 3.66 1.70 - 6.10 x10(3)/[facility] Lymph % 16.1 % [facility] Lymphocytes Abs 0.9 0.9 - 3.2 x10(3)/[facility] Monocyte % 10.8 % [facility] Monocyte Abs 0.6 0.3 - 0.9 x10(3)/[facility] Eos % 6.6 % [facility] Eosinophils Abs 0.4 0.0 - 0.4 x10(3)/[facility] Basophil % 0.7 % [facility] Baso Absolute 0.0 0.0 - 0.1 x10(3)/[facility] Immature Gran % 0.20 % [facility] Comment: Immature granulocytes(IG's)percentage and absolute count will include metamyelocytes, myelocytes, and promyelocytes. Blood smears from CBCs yielding IG's will be scanned manually for concordance. If this scan disagrees with the automated IG or if promyelocytes are noted, a manual differential will be performed. Immature Gran Absolute 0.01 0.00 - 0.04 x10(3)/[facility] Blood 01/21/2023 12:5 5 PM EDT 01/21/2023 1:11 PM EDT Narrative Resulting Agency Comment Spec In Lab Jovani Richardson MD HEMATOLOGY ORDERABLE S Performing Organization Address City/[facility]/[place] [address] * (ABNORMAL) Hemogram (01/21/2023 12:55 PM EDT) White Blood Cell 5.6 4.0 - 9.5 x10(3)/mc L [facility] Red Blood Cell 3.09(L) 4.58 - 5.54 x10(6)/mc L [facility] Hemoglobin 9.4(L) 13.7 - 16.5 g/dL [facility] Hematocrit 29.0(L) 40.5 - 48.5 % [facility] Mean Cell Volume 93.9(H) 82.9 - 93.1 fL [facility] Mean Cell Hemoglobin 30.4 27.5 - 32.1 pg [facility] Mean Cell Hemoglobin Concentration 32.4 32.0 - 35.7 g/dL [facility] Platelet 205 145 - 357 x10(3)/mc L [facility] RDW Standard Deviation 50.4(H) 36.0 - 45.0 fL [facility] RDW coefficient of variation 14.6(H) 11.4 - 13.8 % [facility] Mean Platelet Volume 10.7 7.6 - 12.9 fL [facility] NRBC% auto 0.0 % [facility] NRBC Absolute 0.000 0.000 - 0.000 x10(3)/mc L [facility] Blood 01/21/2023 12:5 5 PM EDT 01/21/2023 1:11 PM EDT Narrative Resulting Agency Comment Spec In Lab Jovani Richardson MD HEMATOLOGY ORDERABLE S [facility] [place] [address] * (ABNORMAL) Basic Metabolic Panel (non-fasting) (01/21/2023 12:55 PM EDT) Glucose 93 65 - 199 mg/dL [facility] Comment:Diabetes: >=200 mg/d L plus symptoms Blood Urea Nitrogen 57(H) 10 - 20 mg/dL [facility] Creatinine 2.71(H) 0.80 - 1.50 mg/dL [facility] Sodium 140 135 - 145 mmol/L [facility] Potassium 5.6(H) 3.5 - 5.0 mmol/L [facility] Comment: Please note: ??Patients with WBC >100,000 may have falsely elevated Potassium levels. ??For accurate Potassium quantification in these patients send serum separator tube (gold top) for subsequent determinations. ??Contact the Clinical Chemistry Laboratory if there are any questions. Chloride 112(H) 98 - 107 mmol/L [facility] Carbon Dioxide 15(L) 22 - 31 mmol/L [facility] Anion Gap 13 5 - 15 mmol/L [facility] Calcium 8.4(L) 8.5 - 10.5 mg/dL [facility] Est Glomerular Filtration Rate 25(L) >=60 mL/min/1. 73 m?? [facility] Comment: This patient's estimated GFR [...] Richardson MD CHEMISTRY ORDERABLES Performing Organization Address City/[facility]/ZIP Co de Phone Number [facility] [place] [address] * (ABNORMAL) PTH (01/21/2023 12:55 PM EDT) Parathyroid Hormone 126(H) 15 - 65 pg/mL [facility] Blood 01/21/2023 12:5 5 PM EDT 01/21/2023 1:11 PM EDT Narrative Resulting Agency Comment Spec In Lab Jovani Richardson MD CHEMISTRY ORDERABLES [facility] [place] [address] * Albumin Level (01/21/2023 12:55 PM EDT) Albumin 4.3 3.2 - 5.2 g/dL [facility] Blood 01/21/2023 12:5 5 PM EDT 01/21/2023 1:11 PM EDT Narrative Resulting Agency Comment Spec In Lab Jovani Richardson MD CHEMISTRY ORDERABLES Performing Organization Address City/[facility]/ZIP Co de Phone Number [facility] [place] [address] * Phosphorus (01/21/2023 12:55 PM EDT) Phosphorus 3.5 2.5 - 4.5 mg/dL [facility] Blood 01/21/2023 12:5 5 PM EDT 01/21/2023 1:11 PM EDT Narrative Resulting Agency Comment Spec In Lab Jovani Richardson MD CHEMISTRY ORDERABLES Performing Organization Address [facility] Co de Phone Number [facility] [place] [address] documented in this encounter Visit Diagnoses Diagnosis Acute worsening of stage 4 chronic kidney disease CKD (chronic kidney disease) stage 4, GFR 15-29 ml/min Chronic kidney disease, Stage IV (severe) Primary hypertension Unspecified essential hypertension 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
--- OUTSIDE RECORDS SUMMARY | 2024-06-08 12:47 | XMS_ITS | Encounter Summary ---
Author Organization [facility] Address [facility] [place] [address] Care Team Providers Care Software Developer Intern Name Role Phone Slade Tran MD Primary Care Provider [phone] Encounter Details Date Type Department Care Team [...] EST Clinical Support [place] [address] 06/19/2024 2:00 PM EST Office Visit [place] [address] Pepe Horton MD [facility] [place] [address] 08/10/2024 10:00 AM EDT Laboratory Appointment Lab [address] [place] [address] 08/10/2024 11:20 AM EDT Office Visit Nephrology Hypertension at [place] [phone] Jovani Richardson MD [facility] [place] [address] A, Nurse Clinician None 08/20/2024 7:30 AM EDT Hospital Encounter Gastroenterology at [place] [address] Lawrence Gar MD [facility] [place] [address] 08/20/2024 7:30 AM EDT - 08/20/2024 8:15 AM EDT Surgery Gastroenterology at [place] [phone] Lawrence Gar MD [facility] [place] [address] EGD, UPPER GI ENDOSCOPY (WRVU 2.09) 11/17/2024 4:20 PM EDT Office Visit Gastroenterology at [place] [phone] Lawrence Gar MD [facility] [place] [address] Scheduled Procedures Name Priority Associated Diagnoses Date/Ti me EGD, UPPER GI ENDOSCOPY (WRVU 2.09) Sharma's esophagus with high grade dysplasia 08/20/2024 7:30 AM EDT documented as of this encounter Visit Diagnoses Not on filedocumented in this encounter Care Teams Software Developer Intern Relationship Specialty Start Date End Date Slade Tran MD PCP - General Family Medicine 06/19/22 11/05/23 documented as of this encounter
--- OUTSIDE RECORDS SUMMARY | 2024-06-08 12:47 | XMS_ITS | Encounter Summary ---
Author Organization [facility] [place] [address] Care Team Providers Care Regulator Pin Inserter Name Role Phone Slade Tran MD Primary Care Provider [phone] Encounter Details Date Type Department Care Team (Latest Contact Info) Description 08/30/2023 9:35 AM EDT Laboratory Appointment Lab 3L [place] [phone] CKD (chronic kidney disease) stage 4, GFR [...] EST Clinical Support [place] [phone] 06/19/2024 2:00 PM EST Office Visit [place] [address]-1000 Pepe Horton MD [facility] [place] [address] 08/10/2024 10:00 AM EDT Laboratory Appointment Lab 3L [place] [address] 08/10/2024 11:20 AM EDT Office Visit Nephrology Hypertension [place] [address] Jovani Richardson MD [facility] [place] [address] A, Nurse Clinician None 08/20/2024 7:30 AM EDT Hospital Encounter Gastroenterology at [address] Lawrence Gar MD [facility] [place] [address] 08/20/2024 7:30 AM EDT - 08/20/2024 8:15 AM EDT [place] [phone] Lawrence Gar MD [facility] [place] [address] EGD, UPPER GI ENDOSCOPY (WRVU 2.09) 11/17/2024 4:20 PM EDT Office [place] [phone] Lawrence Gar MD [facility] [place] [address] Scheduled Procedures Name Priority Associated Diagnoses Date/Ti [...] 10:00 AM EDT) Creatinine, Urine 72 mg/dL [facility] Protein, Urine 187(H) 0 - 12 mg/dL [facility] Protein / Creatinine Ratio, Urine 2.[address] [facility] Urine 08/30/2023 10:0 0 AM EDT 08/30/2023 10:39 AM EDT Narrative Resulting Agency Comment Spec In Lab Jovani Richardson MD URINE ORDERABLES Performing Organization Address City/State/[facility] Co de Phone Number [facility] [place] [address] * Differential, Automated (08/30/2023 9:52 AM EDT) Neutrophil % 66.9 % [facility] Neutrophil Absolute 4.38 1.70 - 6.10 x10(3)/[facility] Lymph % 13.8 % [facility] Lymphocytes Abs 0.9 0.9 - 3.2 x10(3)/[facility] Monocyte % 12.2 % [facility] Monocyte Abs 0.8 0.3 - 0.9 x10(3)/[facility] Eos % 5.7 % [facility] Eosinophils Abs 0.4 0.0 - 0.4 x10(3)/[facility] Basophil % 0.9 % [facility] Baso Absolute 0.1 0.0 - 0.1 x10(3)/[facility] Immature Gran % 0.50 % [facility] Comment: Immature granulocytes(IG's)percentage and absolute count will include metamyelocytes, myelocytes, and promyelocytes. Blood smears from CBCs yielding IG's will be scanned manually for concordance. If this scan disagrees with the automated IG or if promyelocytes are noted, a manual differential will be performed. Immature Gran Absolute 0.03 0.00 - 0.04 x10(3)/[facility] Blood 08/30/2023 9:52 AM EDT 08/30/2023 9:56 AM EDT Narrative Resulting Agency Comment Spec In Lab Jovani Richardson MD HEMATOLOGY ORDERABLE S Performing Organization Address City/State/[facility] Co de Phone Number [facility] [place] [address] * (ABNORMAL) Hemogram (08/30/2023 9:52 AM EDT) White Blood Cell 6.5 4.0 - 9.5 x10(3)/[facility] Red Blood Cell 3.29(L) 4.58 - 5.54 x10(6)/ L [facility] Hemoglobin 10.2(L) 13.7 - 16.5 g/dL [facility] Hematocrit 31.3(L) 40.5 - 48.5 % [facility] Mean Cell Volume 95.1(H) 82.9 - 93.[address] [facility] Mean Cell Hemoglobin 31.0 27.5 - 32.[address] [facility] Mean Cell Hemoglobin Concentration 32.6 32.0 - 35.7 g/dL [facility] Platelet 170 145 - 357 x10(3)/ L [facility] RDW Standard Deviation 47.0(H) 36.0 - 45.[address] [facility] RDW coefficient of variation 13.3 11.4 - 13.8 % [facility] Mean Platelet Volume 10.3 7.6 - 12.[address] [facility] NRBC% auto 0.0 % [facility] NRBC Absolute 0.000 0.000 - 0.000 x10(3)/mc L [facility] Blood 08/30/2023 9:52 AM EDT 08/30/2023 9:56 AM EDT Narrative Resulting Agency Comment Spec In Lab Jovani Richardson MD HEMATOLOGY ORDERABLE S Performing Organization Address City/State/[facility] Co de Phone Number [facility] [place] [address] * (ABNORMAL) Basic Metabolic Panel (non-fasting) (08/30/2023 9:52 AM EDT) Glucose 61(L) 65 - 199 mg/dL [facility] Comment:Diabetes: >=200 mg/d L plus symptoms Blood Urea Nitrogen 49(H) 10 - 20 mg/dL [facility] Est Glomerular Filtration Rate 20(L) >=60 mL/min/1. 73 m?? [facility] [...] Richardson MD CHEMISTRY ORDERABLES Performing Organization Address [facility] Co de Phone Number [facility] [place] [address] * Phosphorus (08/30/2023 9:52 AM EDT) Phosphorus 3.8 2.5 - 4.5 mg/dL [facility] Blood 08/30/2023 9:52 AM EDT 08/30/2023 9:56 AM EDT Narrative Resulting Agency Comment Spec In Lab Jovani Richardson MD CHEMISTRY ORDERABLES Performing Organization Address City/[facility] Co de Phone Number [facility] [place] [address] * Albumin Level (08/30/2023 9:52 AM EDT) Albumin 4.4 3.2 - 5.2 g/dL [facility] Blood 08/30/2023 9:52 AM EDT 08/30/2023 9:56 AM EDT Narrative Resulting Agency Comment Spec In Lab Jovani Richardson MD CHEMISTRY ORDERABLES Performing Organization Address City/[facility] Co de Phone Number [facility] [place] [address] * Uric acid (08/30/2023 9:52 AM EDT) Uric Acid 8.2 3.5 - 8.5 mg/dL [facility] Blood 08/30/2023 9:52 AM EDT 08/30/2023 9:56 AM EDT Narrative Resulting Agency Comment Spec In Lab Jovani Richardson MD CHEMISTRY ORDERABLES [facility] [place] [address] * (ABNORMAL) PTH (08/30/2023 9:52 AM EDT) Parathyroid Hormone 145(H) 15 - 65 pg/mL [facility] Blood 08/30/2023 9:52 AM EDT 08/30/2023 9:56 AM EDT Narrative Resulting Agency Comment Spec In Lab Jovani Richardson MD CHEMISTRY ORDERABLES Performing Organization Address City/[facility]/ZIP Co de Phone Number [facility] [place] [address] * Ferritin (08/30/2023 9:52 AM EDT) Ferritin 152 31 - 409 ng/mL [facility] Comment: Please note that as of 05/01/2023, the reference intervals for Ferritin have been updated. Blood 08/30/2023 9:52 AM EDT 08/30/2023 9:56 AM EDT Narrative Resulting Agency Comment Spec In Lab Jovani Richardson MD CHEMISTRY ORDERABLES Performing Organization Address City/[facility]/ZIP Co de Phone Number [facility] [place] [address] * Iron and TIBC (08/30/2023 9:52 AM [...] MD CHEMISTRY ORDERABLES [facility] [place] [address] * Vitamin B12 (08/30/2023 9:52 AM EDT) Vitamin B12 608 232 - 1,245 pg/mL [facility] Blood 08/30/2023 9:52 AM EDT 08/30/2023 9:56 AM EDT Narrative Resulting Agency Comment Spec In Lab Jovani Richardson MD CHEMISTRY ORDERABLES Performing Organization Address City/[facility]/ZIP Co de Phone Number [facility] [place] [address] * Folate, serum (08/30/2023 9:52 AM EDT) Folate >20.0 4.8 - 24.2 ng/mL [facility] Blood 08/30/2023 9:52 AM EDT 08/30/2023 9:56 AM EDT Narrative Resulting Agency Comment Spec In Lab Jovani Richardson MD CHEMISTRY ORDERABLES Performing Organization Address City/[facility]/ZIP Co de Phone Number [facility] [place] [address] * Methylmalonic acid, serum (08/30/2023 9:52 AM EDT) Methylmalonic Acid (MAY) 0.38 <=0.40 nmol/mL [facility] Comment: ADDITIONAL INFORMATION This test was developed and its performance characteristics determined by [facility] in a manner consistent with CLIA requirements. This test has not been cleared or approved by the U.S. Food and Drug Administration. Test Performed by: [facility] - [address] [address] House Parent: Todd Worthington M.D. Ph.D.; CLIA# [id number] Blood 08/30/2023 9:52 AM EDT 08/30/2023 3:38 PM EDT Narrative Resulting Agency Comment Spec In Lab Jovani Richardson MD LAB SEND OUT ORDERAB LES Performing Organization Address City/[facility]/ZIP Co de Phone Number [facility] [place] [address] * Vitamin D, 25-Hydroxy (08/30/2023 9:52 AM EDT) Vitamin D Total 25 OH 21 21 - 100 ng/mL [facility] Vit D Interp Insufficient [facility] Blood 08/30/2023 9:52 AM EDT 08/30/2023 9:56 AM EDT Narrative Resulting Agency Comment Spec In Lab Jovani Richardson MD CHEMISTRY ORDERABLES Performing Organization Address City/[facility] Co de Phone Number [facility] [place] [address] documented in this encounter Visit Diagnoses Diagnosis CKD (chronic kidney disease) stage 4, GFR 15-29 ml/min Chronic kidney disease, Stage IV (severe) Sharma's esophagus with high grade dysplasia Sharma's esophagus documented in this encounter Care Teams Regulator Pin Inserter Relationship Specialty Start Date End Date Slade Tran MD PCP - General Family Medicine 06/19/22 11/05/23 documented as of this encounter
--- OUTSIDE RECORDS SUMMARY | 2024-06-08 12:47 | XMS_ITS | Encounter Summary ---
Author Organization [facility] Address [facility] [place] [address] Care Team Providers Care Bereavement Program Coordinator Name Role Phone Slade Tran MD Primary Care Provider [phone] Reason for Referral * Consultation (Routine) - Closed Specialty Diagnoses / Procedures Referred By Devaughn bobo Referred To Contact Nephrology Diagnoses Chronic renal disease, stage IV Slade Tran MD [address] [place] [address] [place] [address] Jovani Richardson MD [facility] [place] [address] Referral ID Status Reason Start Date Expiration Date V isits Requested Visits Authorized [id number] Closed Consult, Test & Treat PCP Updated and/or Approved 11/06/2022 11/06/2023 6 6 Encounter Details Date Type Department Care Team (Late st Contact Info) Description 11/06/2022 Transcribe Orders eDH Incoming Referrals [phone] Slade Tran MD [address] [place] [address] [place], [place] [id number] Chronic renal disease, stage IV Social History [...] EST Clinical Support [place] [address] 06/19/2024 2:00 PM EST Office Visit [place] [address] Pepe Horton MD [facility] [place] [address] 08/10/2024 10:00 AM EDT Laboratory Appointment Lab [place] [address] 08/10/2024 11:20 AM EDT Office Visit Nephrology Hypertension [place] [address] Jovani Richardson MD [facility] [place] [place] [address] A, Nurse Clinician None 08/20/2024 7:30 AM EDT Hospital Encounter Gastroenterology at [place] [address] Lawrence Gar MD [facility] [place] [address] 08/20/2024 7:30 AM EDT - 08/20/2024 8:15 AM EDT Surgery Gastroenterology at [place] [phone] Lawrence Gar MD [facility] [place] [address] EGD, UPPER GI ENDOSCOPY (WRVU 2.09) 11/17/2024 4:20 PM EDT Office [place] [address] Lawrence Gar MD [facility] [place] [address] Scheduled Procedures Name Priority Associated Diagnoses Date/Ti pa EGD, UPPER GI ENDOSCOPY (WRVU 2.09) Sharma's [...] Coordinator Relationship Specialty Start Date End Date Slade Tran MD PCP - General Family Medicine 06/19/22 11/05/23 documented as of this encounter
--- OUTSIDE RECORDS SUMMARY | 2024-06-08 12:47 | XMS_ITS | Encounter Summary ---
[place] [address] Care Team Providers Care Handstitching Machine Armhole Feller Name Role Phone Slade Tran MD Primary Care Provider [phone] Reason for Referral * Consultation (Routine) - Closed Specialty Diagnoses / Procedures Referred By Devaughn bobo Referred To Contact Nephrology Diagnoses Chronic kidney disease, stage IV (severe) Slade Tran MD [address] [place] [address] [place] [address] [facility] [address] [place] [phone] Referral ID Status Reason Start Date Expiration Date V isits Requested Visits Authorized [id number] Closed Consult, Test & Treat PCP Updated and/or Approved 06/19/2022 06/19/2023 3 3 Encounter Details Date Type Department Care Team (Late st Contact Info) Description 06/19/2022 Transcribe Orders eDH Incoming Referrals [phone] Slade Tran MD [address] [place] [address] [place] [address] Chronic kidney disease, stage IV (severe) [...] EST Clinical Support [place] [address] 06/19/2024 2:00 PM EST Office Visit Solid Organ Transplant at [address] Pepe Horton MD [facility] [place] [address] 08/10/2024 10:00 AM EDT Laboratory Appointment Lab [place] [address] 08/10/2024 11:20 AM EDT Office Visit Nephrology Hypertension at [place] [address] Jovani Richardson MD [facility] [place] [address] A, Nurse Clinician None 08/20/2024 7:30 AM EDT Hospital Encounter Gastroenterology at [place] [address] Lawrence Gar MD [facility] [place] [address] 08/20/2024 7:30 AM EDT - 08/20/2024 8:15 AM EDT Surgery Gastroenterology at [place] [phone] Lawrence Gar MD [facility] [place] [address] EGD, UPPER GI ENDOSCOPY (WRVU 2.09) 11/17/2024 4:20 PM EDT Office Visit [place] [address] Lawrence Gar MD [facility] [place] [address] Scheduled Procedures Name Priority Associated Diagnoses Date/Ti [...] esophagus documented in this encounter Care Teams Handstitching Machine Armhole Feller Relationship Specialty Start Date End Date Slade Tran MD PCP - General Family Medicine 06/19/22 11/05/23 documented as of this encounter
--- OUTSIDE RECORDS SUMMARY | 2024-06-08 12:47 | XMS_ITS | Encounter Summary ---
[place] [address] Care Team Providers Care Smocking Machine Operator Name Role Phone Slade Tran MD Primary Care Provider [phone] Encounter Details Date Type Department Care Team (Late st Contact Info) Description 07/10/2022 Telephone [place] [phone] Patsy Quintero Social History Tobacco Use Types [...] calls can be handled by: Any Gastro Roof Service Technician documented in this encounter Plan of Treatment Upcoming Encounters Date Type Department Care Team (Latest Contact Info) Description 06/19/2024 1:40 PM EST Clinical Support [place] [address] 06/19/2024 2:00 PM EST Office Visit [place] [address] Pepe Horton MD [facility] [place] [address] 08/10/2024 10:00 AM EDT Laboratory Appointment Lab [place] [address] 08/10/2024 11:20 AM EDT Office Visit Nephrology [place] [address] Jovani Richardson MD [facility] [place] [address] A, Nurse Clinician None 08/20/2024 7:30 AM EDT Hospital Encounter Gastroenterology at [place] [address] Lawrence Gar MD [facility] [place] [address] 08/20/2024 7:30 AM EDT - 08/20/2024 8:15 AM EDT Surgery Gastroenterology at [place] [phone] Lawrence Gar MD [facility] [place] [address] EGD, UPPER GI ENDOSCOPY (WRVU 2.09) 11/17/2024 4:20 PM EDT Office Visit Gastroenterology at [place] [phone] Lawrence Gar MD [facility] [place] [address] Scheduled Procedures Name Priority Associated Diagnoses Date/Ti me EGD, UPPER GI ENDOSCOPY (WRVU 2.09) Sharma's esophagus with high grade dysplasia 08/20/2024 7:30 AM EDT documented as of this encounter Visit Diagnoses Not on filedocumented in this encounter Care Teams Smocking Machine Operator Relationship Specialty Start Date End Date Slade Tran MD PCP - General Family Medicine 06/19/22 11/05/23 documented as of this encounter
--- OUTSIDE RECORDS SUMMARY | 2024-06-08 12:47 | XMS_ITS | Encounter Summary ---
Author Organization [facility] Address [facility] [place] [address] Care Team Providers Care Sports Lawyer Name Role Phone Slade Tran MD Primary Care Provider [phone] Encounter Details Date Type Department Care Team [...] EST Clinical Support [place] [address] 06/19/2024 2:00 PM EST Office Visit [place] [address] Pepe Horton MD [facility] DR TRANSPL[place] [address] 08/10/2024 10:00 AM EDT Laboratory Appointment Lab [address] [place] [address] 08/10/2024 11:20 AM EDT Office Visit Nephrology Hypertension at [place] [phone] Jovani Richardson MD [facility] [place] [address] A, Nurse Clinician None 08/20/2024 7:30 AM EDT Hospital Encounter Gastroenterology at [place] [address] Lawrence Gar MD [facility] [place] [address] 08/20/2024 7:30 AM EDT - 08/20/2024 8:15 AM EDT Surgery Gastroenterology at [place] [phone] Lawrence Gar MD [facility] [place] [address] EGD, UPPER GI ENDOSCOPY (WRVU 2.09) 11/17/2024 4:20 PM EDT Office Visit Gastroenterology at [place] [phone] Lawrence Gar MD [facility] [place] [address] Scheduled Procedures Name Priority Associated Diagnoses Date/Ti me EGD, UPPER GI ENDOSCOPY (WRVU 2.09) Sharma's esophagus with high grade dysplasia 08/20/2024 7:30 AM EDT documented as of this encounter Visit Diagnoses Not on filedocumented in this encounter Care Teams Sports Lawyer Relationship Specialty Start Date End Date Slade Tran MD PCP - General Family Medicine 06/19/22 11/05/23 documented as of this encounter
--- OUTSIDE RECORDS SUMMARY | 2024-06-08 12:47 | XMS_ITS | Encounter Summary ---
[place] [address] Care Team Providers Care Head Of Operation And Logistics Name Role Phone Slade Tran MD Primary Care Provider [phone] Encounter Details Date Type Department Care Team (Late st Contact Info) Description 07/09/2022 [place] [phone] Clarissa Zamudio, RN Social History Tobacco Use [...] Telephone Encounter - Clarissa Zamudio, RN - 07/09/2022 11:20 AM EST Incoming VM from Mathew to cancel his 07/[address] Gar. He would like a call back to re-schedule. Forwarded to scheduling documented in this encounter Plan of Treatment Upcoming Encounters Date Type Department Care Team (Latest Contact Info) Description 06/19/2024 1:40 PM EST Clinical Support [place] [phone] 06/19/2024 2:00 PM EST Office Visit Solid Organ Transplant at [place] [phone] Pepe Horton MD [facility] [place] [address] 08/10/2024 10:00 AM EDT Laboratory Appointment Lab [address] [place], [place] [phone] 08/10/2024 11:20 AM EDT Office Visit Nephrology Hypertension at [address] Jovani Richardson MD [facility] [place] [address] A, Nurse Clinician None 08/20/2024 7:30 AM EDT Hospital Encounter Gastroenterology at [place] [phone] Lawrence Gar MD [facility] [place] [address] 08/20/2024 7:30 AM EDT - 08/20/2024 8:15 AM EDT Surgery Gastroenterology at [place] [phone] Lawrence Gar MD [facility] [place] [address] EGD, UPPER GI ENDOSCOPY (WRVU 2.09) 11/17/2024 4:20 PM EDT Office Visit Gastroenterology at [place] [phone] Lawrence Gar MD [facility] [place] [address] Scheduled Procedures Name Priority Associated Diagnoses Date/Ti me EGD, UPPER GI ENDOSCOPY (WRVU 2.09) Sharma's esophagus with high grade dysplasia 08/20/2024 7:30 AM EDT documented as of this encounter Visit Diagnoses Not on filedocumented in this encounter Care Teams Head Of Operation And Logistics Relationship Specialty Start Date End Date Slade Tran MD PCP - General Family Medicine 06/19/22 11/05/23 documented as of this encounter
--- OUTSIDE RECORDS SUMMARY | 2024-06-08 12:47 | XMS_ITS | Encounter Summary ---
Author Organization [facility] Address [facility] [place] [address] Care Team Providers Care Telegraph Service Rater Name Role Phone Slade Tran MD Primary Care Provider [phone] Encounter Details Date Type Department Care Team [...] EST Clinical Support [place] [address] 06/19/2024 2:00 PM EST Office Visit [place] [address] Pepe Horton MD [facility] [place] [address] 08/10/2024 10:00 AM EDT Laboratory Appointment Lab [address] [place] [address] 08/10/2024 11:20 AM EDT Office Visit Nephrology Hypertension at [place] [phone] Jovani Richardson MD [facility] [place] [address] A, Nurse Clinician None 08/20/2024 7:30 AM EDT Hospital Encounter Gastroenterology at [place] [address] Lawrence Gar MD [facility] [place] [address] 08/20/2024 7:30 AM EDT - 08/20/2024 8:15 AM EDT Surgery Gastroenterology at [place] [phone] Lawrence Gar MD [facility] [place] [address] EGD, UPPER GI ENDOSCOPY (WRVU 2.09) 11/17/2024 4:20 PM EDT Office Visit Gastroenterology at [place] [phone] Lawrence Gar MD [facility] [place] [address] Scheduled Procedures Name Priority Associated Diagnoses Date/Ti me EGD, UPPER GI ENDOSCOPY (WRVU 2.09) Sharma's esophagus with high grade dysplasia 08/20/2024 7:30 AM EDT documented as of this encounter Visit Diagnoses Not on filedocumented in this encounter Care Teams Telegraph Service Rater Relationship Specialty Start Date End Date Slade Tran MD PCP - General Family Medicine 06/19/22 11/05/23 documented as of this encounter
--- OUTSIDE RECORDS SUMMARY | 2024-06-08 12:48 | XMS_ITS | Encounter Summary ---
Author Organization [facility] [place] [address] Care Team Providers Care Poultry Scalder Name Role Phone DioJovani franks Primary Care Provider Encounter Details Date Type Department Care Team (Late st Contact Info) Description 08/22/2020 Telephone [place] [address] Cynthia Kim Social History Tobacco Use Types [...] EST Clinical Support [place] [address] 06/19/2024 2:00 PM EST Office Visit [place] [address] Pepe Horton MD [facility] [place] [address] 08/10/2024 10:00 AM EDT Laboratory Appointment Lab [address] [place] [address] 08/10/2024 11:20 AM EDT Office Visit Nephrology [place] [address] Jovani Richardson MD [facility] [place] [address] A, Nurse Clinician None 08/20/2024 7:30 AM EDT Hospital Encounter Gastroenterology at [place] [address] Lawrence Gar MD [facility] [place] [address] 08/20/2024 7:30 AM EDT - 08/20/2024 8:15 AM EDT Surgery Gastroenterology at [place] [phone] Lawrence Gar MD [facility] [place] [address] EGD, UPPER GI ENDOSCOPY (WRVU 2.09) 11/17/2024 4:20 PM EDT Office Visit Gastroenterology at [place] [phone] Lawrence Gar MD [facility] [place] [address] Scheduled Procedures Name Priority Associated Diagnoses Date/Ti me EGD, UPPER GI ENDOSCOPY (WRVU 2.09) Sharma's esophagus with high grade dysplasia 08/20/2024 7:30 AM EDT documented as of this encounter Visit Diagnoses Not on filedocumented in this encounter Care Teams Poultry Scalder Relationship Specialty Start Date End Date Jovani Wharton DO [address] [place] [address] PCP - General Family Medicine 10/18/16 06/18/22 documented as of this encounter
--- OUTSIDE RECORDS SUMMARY | 2024-06-08 12:48 | XMS_ITS | Encounter Summary ---
Author Organization [facility] Address [facility] [place] [address] Care Team Providers Care Computer Aided Design Technician Name Role Phone Jovani Wharton DO Primary Care Provider [phone] Reason for Visit * Consultation (Routine) - Specialty Diagnoses / Procedures Referred By Devaughn bobo Referred To Contact Dermatology Diagnoses Basal cell carcinoma Jovani Wharton DO [address] [place] [address] [facility] Dermatology [address] [place] [address] Referral ID Status Reason Start Date Expiration Date V isits Requested Visits Authorized [id number] Consult, Test & Treat PCP Updated and/or Approved 05/15/2019 11/14/2019 6 6 Encounter Details Date Type Department Care Team (Late st Contact Info) Description 05/25/2019 9:15 AM EST Office Visit Dermatology at [facility] [address] [place] [phone] Deb Hamlin MD [facility] DR TOM FERNANDEZ[place] [address] Neoplasm of uncertain behavior of skin; AK [...] 64 y.o. established patient. Last seen in [facility] Dermatology: 06/18/2018 Here today with the following [...] Note initiated by NEHAL CROUCH LPN. NEHAL CROUHC LPN has performed the documentation for this encounter in the presence of and acting as a scribe for Dr. Hamlin. I performed the above scribed service and agree with the accuracy of the documentation in this encounter. Reviewed and signed by: Deb Hamlin MD Dermatology [facility] * Deb Hamlin MD - 05/25/2019 9:15 [...] EST Clinical Support Solid Organ Transplant at [place] [phone] 06/19/2024 2:00 PM EST Office Visit Solid Organ Transplant at [place] [phone] Pepe Horton MD [facility] [place] [address] 08/10/2024 10:00 AM EDT Laboratory Appointment Lab [address] [place], [place] [phone] 08/10/2024 11:20 AM EDT Office Visit Nephrology Hypertension at [place] [phone] Jovani Richardson MD [facility] [place] [address] A, Nurse Clinician None 08/20/2024 7:30 AM EDT Hospital Encounter Gastroenterology at [place] [phone] Lawrence Gar MD [facility] [place] [address] 08/20/2024 7:30 AM EDT - 08/20/2024 8:15 AM EDT Surgery Gastroenterology at [place] [phone] Lawrence Gar MD [facility] [place] [address] EGD, UPPER GI ENDOSCOPY (WRVU 2.09) 11/17/2024 4:20 PM EDT Office [place] [address] Lawrence Gar MD [facility] [place] [address] Scheduled Procedures Name Priority Associated Diagnoses Date/Ti [...] Report (05/25/2019 9:57 AM EST) Final Diagnosis [id number] ? Location: [facility] The signing pathologist has (i) examined the relevant preparation(s) for the specimen(s) and (ii) rendered or confirmed the diagnosis(es). . ?Surgical Pathology DIAGNOSIS A. Skin, left earlobe, shave biopsy: - ??Invasive squamous cell carcinoma, well to moderately differentiated, present at the peripheral and deep specimen edges Electronically signed by: ??Anthony HENDRICKS, PhD, Bob Verified: ??05/26/2019 ?Dermatopathol ogist Performed at: ??-[facility] Dept. of Pathology, [place], [place] CLINICAL INFORMATION Specimen Submitted: A - Skin, left earlobe, shave biopsy ONLY (1) Clinical History and Diagnosis: 6 mm firm pink tender nodule, SCC versus less likely BCC versus AFX SPECIMEN PROCESSING A - Labeled/Fixativ e: Left ear lobe, formalin. Quantity/Size: ??Single, single 0.7 x 0.5 x 0.4 cm. Tissue Description: Pelican-white granular skin shave. Sections/Proces sing: Inked, bisected and entirely submitted in 1 cassette labeled A1. ??MLL 05/26/2019 11:45 AM EST [facility] SPECIMEN FROM SKIN / Unknown 05/25/2019 9:57 AM EST 05/25/2019 9:57 AM EST Deb Hamlin MD PATHOLOGY/CYTOLOGY O SONIYA Performing Organization Address [facility] [place] [address] * Specimen to Pathology (05/25/2019 9:57 AM EST) AP Specimen 05/25/2019 9:57 AM EST 05/25/2019 2:59 PM EST Narrative [facility] - 05/25/2019 3:00 PM EST Specimen requisition ordered. ??Separate Pathology report to follow Resulting Agency Comment Spec In Lab Deb Hamlin MD PATHOLOGY/CYTOLOGY O RDALBERTINA Performing Organization Address City/[facility] [place] [address] documented in this encounter Visit Diagnoses Diagnosis Neoplasm of uncertain behavior of skin AK (actinic keratosis) Actinic keratosis Sharma's esophagus with high grade dysplasia Sharma's esophagus documented in this encounter Care Teams Computer Aided Design Technician Relationship Specialty Start Date End Date Jovani Wharton DO [address] [place] [address] PCP - General Family Medicine 10/18/16 06/18/22 documented as of this encounter
--- OUTSIDE RECORDS SUMMARY | 2024-06-08 12:48 | XMS_ITS | Encounter Summary ---
Author Organization [facility] Address [facility] [place] [address] Care Team Providers Care Sales Property Manager Name Role Phone DioJovani franks Primary Care Provider [phone] Reason for Referral * Consultation (Routine) - Closed Specialty Diagnoses / Procedures Referred By Devaughn bobo Referred To Contact Dermatology Diagnoses SCC (squamous cell carcinoma) Deb Hamlin MD [facility] DR T[place] [address] Dominguez Lopez MD [facility] DR T[place] [address] Referral ID Status Reason Start Date Expiration Date V isits Requested Visits Authorized [id number] Closed Consult, Test & Treat 04/29/2020 04/29/2021 1 1 Encounter Details Date Type Department Care Team (Late st Contact Info) Description 04/29/2020 Orders Only Dermatology at [facility] [address] [place] [address] Deb Hamlin MD [facility] DR T[place] [address] SCC (squamous cell carcinoma) Social History Tobacco [...] EST Clinical Support Solid Organ Transplant at [place] [address] 06/19/2024 2:00 PM EST Office Visit [place] [address] Pepe Horton MD [facility] [address] [place] [address] 08/10/2024 10:00 AM EDT Laboratory Appointment Lab [address] [address] 08/10/2024 11:20 AM EDT Office Visit Nephrology Hypertension [place] [address] Jovani Richardson MD [facility] [place] [address] A, Nurse Clinician None 08/20/2024 7:30 AM EDT Hospital Encounter Gastroenterology at [place] [phone] Lawrence Gar MD [facility] [place] [address] 08/20/2024 7:30 AM EDT - 08/20/2024 8:15 AM EDT Surgery [place] [address] Lawrence Gar MD [facility] [place] [address] EGD, UPPER GI ENDOSCOPY (WRVU 2.09) 11/17/2024 4:20 PM EDT [place] [address] Lawrence Gar MD [facility] [place] [address] Scheduled Procedures Name Priority Associated Diagnoses Date/Ti [...] esophagus documented in this encounter Care Teams Sales Property Manager Relationship Specialty Start Date End Date Jovani Wharton DO [address] [place] [address] PCP - General Family Medicine 10/18/16 06/18/22 documented as of this encounter
--- OUTSIDE RECORDS SUMMARY | 2024-06-08 12:48 | XMS_ITS | Encounter Summary ---
Author Organization [facility]ly [facility], [facility] Address [facility] [place] [address] Care Team Providers Care Fashion Patternmaker Name Role Phone Jovani Wharton DO Primary Care Provider [phone] Reason for Visit * Consultation (Routine) - Specialty Diagnoses / Procedures Referred By Devaughn bobo Referred To Contact Nephrology Diagnoses Acute kidney failure, unspecified Chronic kidney disease, unspecified Jovani Wharton DO [address] [place] [address] [facility] Nephrology [address] [place] [phone] Referral ID Status Reason Start Date Expiration Date V isits Requested Visits Authorized [id number] Consult, Test & Treat PCP Updated and/or Approved 12/15/2019 12/14/2020 1 1 Encounter Details Date Type Department Care Team (Latest Contact Info) Description 04/20/2020 4:30 PM EST Office Visit [place] [address] Jorge Gonzales MD [facility] [place] [address] CKD (chronic kidney disease) stage [...] heavily. He had a recent admission to [facility] with pancreatitis. On 04-11-2020 his creatinine was [...] EST Clinical Support [place] [address] 06/19/2024 2:00 PM EST Office Visit Solid Organ Transplant at [place] [phone] Pepe Horton MD [facility] [place] [address] 08/10/2024 10:00 AM EDT Laboratory Appointment Lab [address] [place] [address] 08/10/2024 11:20 AM EDT Office Visit Nephrology Hypertension at [place] [phone] Jovani Richardson MD [facility] [place] [address] A, Nurse Clinician None 08/20/2024 7:30 AM EDT Hospital Encounter Gastroenterology at [place] [phone] Lawrence Gar MD [facility] [place] [address] 08/20/2024 7:30 AM EDT - 08/20/2024 8:15 AM EDT Surgery Gastroenterology at [place] [phone] 31 Lawrence Gar MD [facility] GASTRO[place] [address] EGD, UPPER GI ENDOSCOPY (WRVU 2.09) 11/17/2024 4:20 PM EDT Office [place] [phone] Lawrence Gar MD [facility] [place] [address] Scheduled Orders Name Type Priority Associated Diagnoses [...] Scheduled Procedures Name Priority Associated Diagnoses Date/Ti il EGD, UPPER GI ENDOSCOPY (WRVU 2.09) Sharma's [...] * Differential, Automated (04/20/2020 5:20 PM EST) Neutrophil % 58.6 % [facility] Neutrophil Absolute 2.93 1.70 - 6.10 x10(3)/[facility] Lymph % 18.6 % [facility] Lymphocytes Abs 0.9 0.9 - 3.2 x10(3)/[facility] Monocyte % 15.2 % [facility] Monocyte Abs 0.8 0.3 - 0.9 x10(3)/[facility] Eos % 6.0 % [facility] Eosinophils Abs 0.3 0.0 - 0.4 x10(3)/[facility] Basophil % 1.4 % [facility] Baso Absolute 0.1 0.0 - 0.1 x10(3)/[facility] Immature Gran % 0.20 % [facility] Comment: Immature granulocytes(IG's)percentage and absolute count will include metamyelocytes, myelocytes, and promyelocytes. Blood smears from CBCs yielding IG's will be scanned manually for concordance. If this scan disagrees with the automated IG or if promyelocytes are noted, a manual differential will be performed. Immature Gran Absolute 0.01 0.00 - 0.04 x10(3)/[facility] Blood specimen (specimen) 04/20/2020 5:20 PM EST 04/20/2020 5:27 PM EST Narrative Resulting Agency Comment Spec In Lab Jorge Gonzales MD HEMATOLOGY ORDERABL ES Performing Organization Address City/[facility] Co de Phone Number [facility] [place] [address] * (ABNORMAL) Hemogram (04/20/2020 5:20 PM EST) White Blood Cell 5.0 4.0 - 9.5 x10(3)/mc L [facility] Red Blood Cell 3.53(L) 4.58 - 5.54 x10(6)/mc L [facility] Hemoglobin 11.0(L) [...] RDW Standard Deviation 48.3(H) 36.0 - 45.0 fL [facility] RDW coefficient of variation 13.5 11.4 - 13.8 % [facility] Mean Platelet Volume 10.6 7.6 - 12.9 fL [facility] NRBC% auto 0.0 % [facility] NRBC Absolute 0.000 0.000 - 0.000 x10(3)/mc L [facility] Blood specimen (specimen) 04/20/2020 5:20 PM EST 04/20/2020 5:27 PM EST Narrative Resulting Agency Comment Spec In Lab Jorge Gonzales MD HEMATOLOGY ORDERABL ES [facility] [place] [address] * PTH (04/20/2020 5:20 PM EST) Parathyroid Hormone 51 15 - 65 pg/mL [facility] Blood specimen (specimen) 04/20/2020 5:20 PM EST 04/20/2020 5:27 PM EST Narrative Resulting Agency Comment Spec In Lab Jorge oGnzales MD CHEMISTRY ORDERABLE S Performing Organization Address [facility] Co de Phone Number [facility] [place] [address] * (ABNORMAL) Basic Metabolic Panel (non-fasting) (04/20/2020 [...] of body mass or the acutely ill. [email or web address] eGFR 27(L) >=60 mL/min/1. 73 m?? [facility] Comment: The eGFR was calculated using the CKD-EPI equation. As with all creatinine based estimates of kidney function, eGFR values calculated with the CKD-EPI equation are not accurate in patients with acute kidney failure, extremes of body mass or the acutely ill. [email or web address] Blood specimen (specimen) 04/20/2020 5:20 PM EST 04/20/2020 5:27 PM EST Narrative Resulting Agency Comment Spec In Lab Jorge Gonzales MD CHEMISTRY ORDERABLE S Performing Organization Address [facility] Co de Phone Number [facility] [place] [address] * Hepatic Function Panel (04/20/2020 5:20 PM [...] MD CHEMISTRY ORDERABLE S Performing Organization Address [facility] Co de Phone Number [facility] [place] [address] * (ABNORMAL) Protein/Creatinine Ratio, urine (04/20/2020 4:30 PM EST) Creatinine, Urine 128 mg/dL [facility] Protein, Urine 110(H) 0 - 12 mg/dL [facility] Protein / Creatinine Ratio, Urine 0.9 ratio [facility] Urine specimen (specimen) 04/20/2020 4:30 PM EST 04/20/2020 5:12 PM EST Narrative Resulting Agency Comment Spec In Lab Jorge Gonzales MD URINE ORDERABLES [facility] [place] [address] documented in this encounter Visit Diagnoses Diagnosis CKD (chronic kidney disease) stage 2, GFR 60-89 ml/min Chronic kidney disease, Stage II (mild) Sharma's esophagus with high grade dysplasia Sharma's esophagus documented in this encounter Care Teams Fashion Patternmaker Relationship Specialty Start Date End Date Jovani Wharton DO [address] [place] [address] PCP - General Family Medicine 10/18/16 06/18/22 documented as of this encounter
--- OUTSIDE RECORDS SUMMARY | 2024-06-08 12:48 | XMS_ITS | Encounter Summary ---
Author Organization [facility] Address [facility] [place] [address] Care Team Providers Care Teletype Or Varitype Keyboard Operator Name Role Phone DioJovani franks Primary Care Provider Encounter Details Date Type Department Care Team (Late st Contact Info) Description 01/21/2020 Orders Only Nephrology [place] [phone] Jorge Gonzales MD [facility] [place] [place] [address] CKD (chronic kidney disease) stage 2, GFR [...] EST Clinical Support [place] [phone] 06/19/2024 2:00 PM EST Office Visit [place] [phone] Pepe Horton MD [facility] [place] [address] 08/10/2024 10:00 AM EDT Laboratory Appointment Lab [address] [place] [address] 08/10/2024 11:20 AM EDT Office Visit Nephrology Hypertension at [address] Jovani Richardson MD [facility] [place] [place] [address] A, Nurse Clinician None 08/20/2024 7:30 AM EDT Hospital [place] [address] Lawrence Gar MD [facility] [place] [address] 08/20/2024 7:30 AM EDT - 08/20/2024 8:15 AM EDT Surgery Gastroenterology at [place] [phone] Lawrence Gar MD [facility] [place] [address] EGD, UPPER GI ENDOSCOPY (WRVU 2.09) 11/17/2024 4:20 PM EDT Office Visit Gastroenterology at [place] [phone] Lawrence Gar MD [facility] [place] [address] Scheduled Procedures Name Priority Associated Diagnoses Date/Ti me EGD, UPPER GI ENDOSCOPY (WRVU 2.09) Sharma's esophagus with high grade dysplasia 08/20/2024 7:30 AM EDT documented as of this encounter Results * PTH (04/20/2020 5:20 PM EST) Parathyroid Hormone 51 15 - 65 pg/mL [facility] Blood specimen (specimen) 04/20/2020 5:20 PM EST 04/20/2020 5:27 PM EST Narrative Resulting Agency Comment Spec In Lab Jorge Gonzales MD CHEMISTRY ORDERABLE S [facility] [place] [address] * (ABNORMAL) Basic Metabolic Panel (non-fasting) (04/20/2020 5:20 PM EST) Glucose 117 65 - 199 mg/dL [facility] Comment:Diabetes: >=200 mg/d L plus symptoms Blood Urea Nitrogen 56(H) 10 - 20 mg/dL [facility] Creatinine 2.71(H) 0.80 - 1.50 mg/dL [facility] Sodium 140 135 - 145 mmol/L [facility] Potassium 4.5 3.5 - 5.0 mmol/L [facility] Comment: Please note: ??Patients with WBC >100,000 may have falsely elevated Potassium levels. ??For accurate Potassium quantification in these patients send serum separator tube (gold top) for subsequent determinations. ??Contact the Clinical Chemistry Laboratory if there are any questions. Chloride 107 98 - 107 mmol/L [facility] Carbon Dioxide 21(L) 22 - 31 mmol/L [facility] Anion Gap 12 5 - 15 mmol/L [facility] Calcium 9.7 8.5 - 10.5 mg/dL [facility] Est Glomerular Filtration Rate 23(L) >=60 mL/min/1. 73 m?? [facility] Comment: The eGFR was calculated using the CKD-EPI equation. As with all creatinine based estimates of kidney function, eGFR values calculated with the CKD-EPI equation are not accurate in patients with acute kidney failure, extremes of body mass or the acutely ill. http://[employer]/DHnkf eGFR 27(L) >=60 mL/min/1. 73 m?? [facility] Comment: The eGFR was calculated using the CKD-EPI equation. As with all creatinine based estimates of kidney function, eGFR values calculated with the CKD-EPI equation are not accurate in patients with acute kidney failure, extremes of body mass or the acutely ill. [email or web address] Blood specimen (specimen) 04/20/2020 5:20 PM EST 04/20/2020 5:27 PM EST Narrative Resulting Agency Comment Spec In Lab Jorge Gonzales MD CHEMISTRY ORDERABLE S Performing Organization Address City/[facility] Co de Phone Number [facility] [place] [address] * (ABNORMAL) Protein/Creatinine Ratio, urine (04/20/2020 4:30 PM EST) Creatinine, Urine 128 mg/dL [facility] Protein, Urine 110(H) 0 - 12 mg/dL [facility] Protein / Creatinine Ratio, Urine 0.9 ratio [facility] Urine specimen (specimen) 04/20/2020 4:30 PM EST 04/20/2020 5:12 PM EST Narrative Resulting Agency Comment Spec In Lab Jorge Gonzales MD URINE ORDERABLES Performing Organization Address City/[facility] Co de Phone Number [facility] [place] [address] documented in this encounter Visit Diagnoses Diagnosis CKD (chronic kidney disease) stage 2, GFR 60-89 ml/min Chronic kidney disease, Stage II (mild) Sharma's esophagus with high grade dysplasia Sharma's esophagus documented in this encounter Care Teams Teletype Or Varitype Keyboard Operator Relationship Specialty Start Date End Date Jovani Wharton DO [address] [place] [address] PCP - General Family Medicine 10/18/16 06/18/22 documented as of this encounter
--- OUTSIDE RECORDS SUMMARY | 2024-06-08 12:48 | XMS_ITS | Encounter Summary ---
Author Organization [facility] Address [facility] [place] [address] Care Team Providers Care Electric Furnace Operator Name Role Phone DioJovani franks Primary Care Provider Encounter Details Date Type Department Care Team (Latest Contact Info) Description 10/20/2020 11:58 AM EDT - 10/20/2020 4:07 PM EDT Hospital En[place] [address] Lawrence Gar MD [facility] [place] [address] Alcohol-induced chronic pancreatitis; Screen for colon cancer [...] the day after the procedure, use an ocnv-dxq-lkqsshu spray to numb your throat. Sucking on [...] occurs, please contact your Doctor. Please call [phone] before 8pm Mon-Fri with problems, questions or concerns. If you call after 8pm or on weekends, call the Hospital at [phone] and ask to speak to the Data Power Consultant teacher of family and consumer science and the run boat operator will contact that person for you. When should you call for help? Call [phone] anytime you think you may need emergency [...] any problems. Where can you learn more? [facility] View your After Visit Summary and more online at [email or web address] If you would like to provide feedback [...] cost to you. Content Version: 12.2 ?? 2435-2656 [employer]. Care instructions adapted under license by [facility]. If you have questions about a medical condition or this instruction, always ask your healthcare professional. [employer] disclaims any warranty or liability for your [...] the day after the procedure, use an rpvm-rmb-vfvlihh spray to numb your throat. Sucking on [...] occurs, please contact your Doctor. Please call [phone] before 8pm Mon-Fri with problems, questions or concerns. If you call after 8pm or on weekends, call the Hospital at [phone] and ask to speak to the Data Power Consultant teacher of family and consumer science and the run boat operator will contact that person for you. When should you call for help? Call [phone] anytime you think you may need emergency [...] After Visit Summary and more online at [email or web address] If you would like to provide feedback [...] cost to you. Content Version: 12.2 ?? 8629-5016 [employer]. Care instructions adapted under license by [facility]. If you have questions about a medical condition or this instruction, always ask your healthcare professional. [employer] disclaims any warranty or liability for your [...] x 3 weeks 40 g 08/11/2020 08/17/2022 eqmgic-yktablmm-prtxfu e (Creon 6) 6,000-19,000 -30,000 unit Capsule, [...] to Encounter Medication Sig Dispense Refill ??? ejfche-fyqtsnho-edqqyju DR (Creon 6) 6,000-19,000 -30,000 unit Capsule, [...] Gar MD - 10/20/2020 1:12 PM EDT [facility] [place]ative Note Patient Name: Mathew Mendez : [id number] MR#: [id number] Case Date: 10/20/2020 Surgeon: Surgeon(s) and Role: [...] EST Clinical Support [place] [address] 06/19/2024 2:00 PM EST Office [place] [phone] Pepe Horton MD [facility] [place] [address] 08/10/2024 10:00 AM EDT Laboratory Appointment Lab [address] [place] [phone] 08/10/2024 11:20 AM EDT Office Visit [place] [address] Jovani Richardson MD [facility] [place] [address] A, Nurse Clinician None 08/20/2024 7:30 AM EDT Hospital Encounter Gastroenterology at [place] [phone] Lawrence Gar MD [facility] [place] [address] 08/20/2024 7:30 AM EDT - 08/20/2024 8:15 AM EDT Surgery Gastroenterology at [place] [phone] Lawrence Gar MD [facility] [place] [address] EGD, UPPER GI ENDOSCOPY (WRVU 2.09) 11/17/2024 4:20 PM EDT Office [place] [phone] Lawrence Gar MD [facility] [place] [address] Scheduled Procedures Name Priority Associated Diagnoses Date/Ti [...] 2:16 PM EDT Colonoscopy, Remv Lesn, Snare ([id number]) 10/20/2020 1:03 PM EDT Alcohol-induced chronic pancreatitis Screen for colon cancer Gastroesophageal reflux disease, unspecified whether esophagitis present UPPER EUS- ENDOSCOPIC ULTRASOUND (WRVU 3.47) 10/20/2020 1:03 PM EDT Alcohol-induced chronic pancreatitis Screen for colon cancer Gastroesophageal reflux disease, unspecified whether esophagitis present Upper Gi Endoscopy, Biopsy ([id number]) 10/20/2020 1:03 PM EDT Alcohol-induced chronic pancreatitis Screen for colon cancer Gastroesophageal reflux disease, unspecified whether esophagitis present UPPER EUS-ENDOSCOPIC ULTRASOUND Routine 10/20/2020 12:46 PM EDT COLONOSCOPY Routine 10/20/2020 12:46 PM EDT documented in this encounter Results * Surgical Pathology Report (10/20/2020 2:16 PM EDT) Final Diagnosis [id number] ? Location: 4; [facility]; A The signing pathologist has (i) examined [...] of tubular adenoma. Electronically signed by: ?Toya HEDNRICKS PhD, Shyla Verified: ??11/02/2020 15:00 ??Pathologist Performed at: ??-[facility] Dept. [place]ology, [place], [place] DISCUSSION A - ??The findings are [...] EDT Lawrence Gar MD PATHOLOGY/CYTOLOGY O SONIYA [facility] [place] [address] * Specimen to Pathology (10/20/2020 2:16 PM EDT) AP Specimen 10/20/2020 2:16 PM EDT 10/20/2020 2:[address] [facility] - 10/20/2020 2:16 PM EDT Specimen requisition ordered. ??Separate Pathology report to follow Lawrence Gar MD PATHOLOGY/CYTOLOGY O RDERABLES [facility] [place] [address] * Specimen to Pathology (10/20/2020 2:16 PM EDT) AP Specimen 10/20/2020 2:16 PM EDT 10/20/2020 2:[address] [facility] - 10/20/2020 2:16 PM EDT Specimen requisition ordered. ??Separate Pathology report to follow Lawrence Gar MD PATHOLOGY/CYTOLOGY O SONIYA Performing Organization Address [facility]/[place] [address] * Specimen to Pathology (10/20/2020 2:16 PM EDT) AP Specimen 10/20/2020 2:16 PM EDT 10/20/2020 2:[address] [facility] - 10/20/2020 2:16 PM EDT Specimen requisition ordered. ??Separate Pathology report to follow Lawrence Gar MD PATHOLOGY/CYTOLOGY O SONIYA Performing Organization Address [facility]/ZIP Co de Phone Number [facility] [place] [address] * Specimen to Pathology (10/20/2020 2:16 PM EDT) AP Specimen 10/20/2020 2:16 PM EDT 10/20/2020 2:[address] [facility] - 10/20/2020 2:16 PM EDT Specimen requisition ordered. ??Separate Pathology report to follow Lawrence Gar MD PATHOLOGY/CYTOLOGY O SONIYA Performing Organization Address City/[facility]/[place] [address] * Specimen to Pathology (10/20/2020 2:16 PM EDT) AP Specimen 10/20/2020 2:16 PM EDT 10/20/2020 2:[address] [facility] - 10/20/2020 2:16 PM EDT Specimen requisition ordered. ??Separate Pathology report to follow Lawrence Gar MD PATHOLOGY/CYTOLOGY O SONIYA [facility] [place] [address] * UPPER EUS-ENDOSCOPIC ULTRASOUND (10/20/2020 12:46 PM EDT) UPPER ENDOSCOPIC ULTRASOUND [facility] Endoscopy Procedure Date: 10/20/2020 12:46 PM ? Patient Name: Mathew Mendez ? N: [id number] ? Date of : 1955 ? Age: 65 ? Order #: [id number] ? Instrument Name: [id number] ? Procedure: ? Upper EUS Indications: ? Dysphagia, Follow-up of ? gastro-esophageal reflux disease Providers: ? Lawrence Gar MD, Sarina Pinto, ? Ilya Scales MD: ?Jovani Wharton, DO Medicines: ? Monitored Anesthesia Care Complications: ? No immediate complications. Procedure: ? Pre-Anesthesia Assessment: ? - [place] Protocol: ? - Pre-procedure Verification: Prior ? [...] by the physician, the nurse, ? the accounts manager and the radio/tv technician in ? the pre-procedure area in [...] Procedure Code(s): ?? --- Professional --- ? 37017, Esophagogastroduodenos copy, ? flexible, transoral; with endoscopic ? ultrasound examination, including the ? esophagus, stomach, and either the ? duodenum or a surgically altered ? stomach where the jejunum is examined ? distal to the anastomosis ? 51185, Esophagogastroduodenos copy, ? flexible, transoral; with biopsy, [...] ? disease without esophagitis CPT copyright 2019 [employer]. All rights reserved. The codes documented in this report are preliminary and upon maternal child nurse review may be revised to meet current [...] * COLONOSCOPY (10/20/2020 12:46 PM EDT) COLONOSCOPY [facility] Endoscopy Procedure Date: 10/20/2020 12:46 PM ? Patient Name: Mathew Mendez ? Date of : 1955 ? Age: 65 ? Order #: [id number] ? Instrument Name: [id number] ? Procedure: ? Colonoscopy Indications: ? Screening for colorectal malignant ? neoplasm Providers: ? Lawrence Gar MD, Sarina Pinto, ? Ilya Scales Memar Referring MD: ?Jovani Wharton, DO Medicines: ? Monitored Anesthesia Care Complications: ? No immediate complications. Procedure: ? Pre-Anesthesia Assessment: ? - [place]richs Protocol: ? - Pre-procedure Verification: Prior ? [...] by the physician, the nurse, ? the accounts manager and the radio/tv technician in ? the procedure room. ? [...] Procedure Code(s): ?? --- Professional --- ? 18300, Colonoscopy, flexible; with ? removal of tumor(s), [...] and ? anastomosis status CPT copyright 2019 [employer]. All rights reserved. The codes documented in this report are preliminary and upon maternal child nurse review may be revised to meet current [...] CRNA) documented in this encounter Care Teams Electric Furnace Operator Relationship Specialty Start Date End Date Jovani Wharton DO [address] [place] [address] PCP - General Family Medicine 10/18/16 06/18/22 documented as of this encounter
--- OUTSIDE RECORDS SUMMARY | 2024-06-08 12:48 | XMS_ITS | Encounter Summary ---
Author Organization [facility] Address [facility] [place] [address] Care Team Providers Care Poultry Veterinarian Name Role Phone DioJovani franks Primary Care Provider [phone] Reason for Visit * Reason Comments Squamous Cell Carcinoma Encounter Details Date Type Department Care Team (Latest Contact Info) Description 07/06/2019 8:00 AM EST Procedure visit Dermatology at [address] [address] Dominguez Lopez MD [facility] [place] [address] Squamous cell carcinoma of skin of left [...] MD, PhD. Your wound(s) was repaired by cmup-bq-gvpa stitches called a primary repair. You do [...] until your sutures are removed. 5. Some roller picker may need to be delayed or delegated [...] as often as is recommended by your collections analyst, for new skin cancers. This is once [...] it. If after hours, please call the reeling operator or [phone] and ask for the collections analyst on-call. If you have any non-urgent questions or concerns, please feel free to call my office or contact me through our patient portal, [employer], at [email or web address] How to contact us during business hours [facility]: Mohs scheduling or Mohs follow-up appointments: [phone] documented in this encounter Progress Notes * [...] and follow up with his or her collections analyst or other skin provider. 6. Discussed avoiding [...] Reviewed and signed by: Dominguez Lopez Dermatology [facility] * Dominguez Lopez MD - 07/06/2019 8:00 AM EST Mohs micrographic Surgery Operative Report Patient name: Mathew Mendez : 1955 Date: 07/06/2019 Staff Surgeon: Dominguez Lopez MD PhD Nursing/Rubber Mill Tender(s): Mi Banda CMA, Patsy Chapman RN, Mary Naidu LPN, Serina Taylor CMA Fluorescent Lamp Replacer (s): Donna Mays Pre-operative diagnosis: Squamous Cell [...] The site was confirmed with the patient/authorized in store representative/referring physician and/or a photograph form time [...] micrographic extirpation of tumor Indication: Repair with advent of anatomic structure and function Procedure Name: [...] Reviewed and signed by: Dominguez Lopez Dermatology [facility] documented in this encounter Plan of Treatment Upcoming Encounters Date Type Department Care Team (Latest Contact Info) Description 06/19/2024 1:40 PM EST Clinical Support [place] [address] 06/19/2024 2:00 PM EST Office Visit [place] [address] Pepe Horton MD [facility] [place] [address] 08/10/2024 10:00 AM EDT Laboratory Appointment Lab [address] [place] [address] 08/10/2024 11:20 AM EDT Office Visit Ne[place] [address] Jovani Richardson MD [facility] [place] [address] A, Nurse Clinician None 08/20/2024 7:30 AM EDT Hospital Encounter Gastroenterology at [place] [phone] Lawrence Gar MD [facility] [address] 08/20/2024 7:30 AM EDT - 08/20/2024 8:15 AM EDT Surgery Gastroenterology at [place] [phone] Lawrence Gar MD [facility] [place] [address] EGD, UPPER GI ENDOSCOPY (WRVU 2.09) 11/17/2024 4:20 PM EDT Office Visit [place] [address] Lawrence Gar MD [facility] [place] [address] Scheduled Procedures Name Priority Associated Diagnoses Date/Ti me EGD, UPPER GI ENDOSCOPY (WRVU 2.09) Sharma's esophagus with high grade dysplasia 08/20/2024 7:30 AM EDT documented as of this encounter Visit Diagnoses Diagnosis 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
--- OUTSIDE RECORDS SUMMARY | 2024-06-08 12:48 | XMS_ITS | Encounter Summary ---
Author Organization [facility] [place] [address] Care Team Providers Care Legal Researcher Name Role Phone IdoJovani franks Primary Care Provider [phone] Encounter Details Date Type Department Care Team (Late st Contact Info) Description 04/07/2021 [facility] Only [address] [phone] Jorge Chauhan MD [address] [place] [phone] Social History Tobacco Use Types Packs/Day [...] EST Clinical Support [place] [address] 06/19/2024 2:00 PM EST Office [place] [address] Pepe Horton MD [facility] [place] [address] 08/10/2024 10:00 AM EDT Laboratory Appointment Lab [address] [place] [address] 08/10/2024 11:20 AM EDT Office Visit Nephrology Hypertension at [place] [address] Jovani Richardson MD [facility] [place] [address] A, Nurse Clinician None 08/20/2024 7:30 AM EDT Hospital Encounter Gastroenterology at [place] [address] Lawrence Gar MD [facility] [place] [address] 08/20/2024 7:30 AM EDT - 08/20/2024 8:15 AM EDT Surgery Gastroenterology at [place] [phone] Lawrence Gra MD [facility] [place] [address] EGD, UPPER GI ENDOSCOPY (WRVU 2.09) 11/17/2024 4:20 PM EDT Office Visit Gastroenterology at [place] [phone] Lawrence Gar MD [facility] [place] [address] Scheduled Procedures Name Priority Associated Diagnoses Date/Ti [...] PT CLASS O RAD ADMITDTTM RAD PT [facility] INFO [id number]^J ENSEN^KRISTO PHER RAD EXAM DESC UEXTDUP^US LEG [...] who have questions please contact the health caregivers non medical that requested your imaging first. ? Electronically signed by: Miguel Vasquez MD, [facility] ([phone]), at 04/07/2021 1:37 PM Narrative 04/07/2021 1:37 [...] patients who have questions please contactthe health caregivers non medical that requested your imaging first. Electronically signed by: Miguel Vasquez MD, [facility]([phone]), at 04/07/2021 1:37 PM Jorge Chauhan MD [facility] documented in this encounter Visit Diagnoses Not on filedocumented in this encounter Care Teams Legal Researcher Relationship Specialty Start Date End Date Jovani Wharton DO [address] [place] [address] [place] [address] PCP - General Family Medicine 10/18/16 06/18/22 documented as of this encounter
--- OUTSIDE RECORDS SUMMARY | 2024-06-08 12:48 | XMS_ITS | Encounter Summary ---
[place] [address] Care Team Providers Care Resource Program Teacher Name Role Phone DioJovani franks Primary Care Provider [phone] Encounter Details Date Type Department Care Team (Late st Contact Info) Description 07/11/2018 Telephone Nephrology [place] [phone] Nehal Ortiz Social History Tobacco Use Types [...] EST Clinical Support Solid [place] [address] 06/19/2024 2:00 PM EST Office [place] [address] Pepe Horton MD [facility] [place] [address] 08/10/2024 10:00 AM EDT Laboratory Appointment Lab [address] [address] 08/10/2024 11:20 AM EDT Office Visit Nephrology Hypertension at [place] [address] Jovani Richardson MD [facility] [place] [address] A, Nurse Clinician None 08/20/2024 7:30 AM EDT Hospital Encounter Gastroenterology at [place] [address] Lawrence Gar MD [facility] [place] [address] 08/20/2024 7:30 AM EDT - 08/20/2024 8:15 AM EDT Surgery Gastroenterology at [place] [phone] Lawrence Gar MD [facility] [place] [address] EGD, UPPER GI ENDOSCOPY (WRVU 2.09) 11/17/2024 4:20 PM EDT Office Visit Gastroenterology at [address] Lawrence Gar MD [facility] [place] [address] Scheduled Procedures Name Priority Associated Diagnoses Date/Ti me EGD, UPPER GI ENDOSCOPY (WRVU 2.09) Sharma's esophagus with high grade dysplasia 08/20/2024 7:30 AM EDT documented as of this encounter Visit Diagnoses Not on filedocumented in this encounter Care Teams Resource Program Teacher Relationship Specialty Start Date End Date Jovani Wharton DO [address] [place] [address] [place] [address] PCP - General Family Medicine 10/18/16 06/18/22 documented as of this encounter
--- OUTSIDE RECORDS SUMMARY | 2024-06-08 12:48 | XMS_ITS | Encounter Summary ---
Author Organization [facility] Address [facility] [place] [address] Care Team Providers Care Film Rental Clerk Name Role Phone Jovani Wharton DO Primary Care Provider Encounter Details Date Type Department Care Team (Late st Contact Info) Description 01/17/2021 2:20 PM EDT Office [place] [address] Lawrence Gar MD [facility] [place] [address] Alcohol-induced chronic pancreatitis Social History Tobacco Use [...] manages a [address] [place] [facility]. While he does have some help [...] Reported on 01/17/2021) 40 g 0 ??? tvuexg-rftmdubz-zucatps DR (Creon 6) 6,000-19,000 -30,000 unit Capsule, [...] of care regarding pancreatitis. Lawrence Gar MD director wholesale Director, GI Endoscopy Section of Gastroenterology [place] [address] Cc:Jovani Wharton, [address] [place] [address] [place] [address] documented in this encounter Plan of Treatment Upcoming Encounters Date Type Department Care Team (Latest Contact Info) Description 06/19/2024 1:40 PM EST Clinical Support [place] [address] 06/19/2024 2:00 PM EST Office Visit Solid Organ Transplant at [place] [phone] Pepe Horton MD [facility] [place] [address] 08/10/2024 10:00 AM EDT Laboratory Appointment Lab [address] [place] [address] 08/10/2024 11:20 AM EDT Office Visit Nephrology Hypertension at [address] Jovani Richardson MD [facility] [place] [address] A, Nurse Clinician None 08/20/2024 7:30 AM EDT Hospital Encounter Gastroenterology at [place] [phone] Lawrence Gar MD [facility] [place] [address] 08/20/2024 7:30 AM EDT - 08/20/2024 8:15 AM EDT Surgery Gastroenterology at [place] [phone] Lawrence Gar MD [facility] [place] [address] EGD, UPPER GI ENDOSCOPY (WRVU 2.09) 11/17/2024 4:20 PM EDT Office [place] [address] Lawrence Gar MD [facility] [place] [address] Scheduled Procedures Name Priority Associated Diagnoses Date/Ti me EGD, UPPER GI ENDOSCOPY (WRVU 2.09) Sharma's esophagus with high grade dysplasia 08/20/2024 7:30 AM EDT documented as of this encounter Visit Diagnoses Diagnosis Alcohol-induced chronic pancreatitis Chronic pancreatitis Sharma's esophagus with high grade dysplasia Sharma's esophagus documented in this encounter Care Teams Film Rental Clerk Relationship Specialty Start Date End Date Jovani Wharton DO [address] [place] [address] [place] [address] PCP - General Family Medicine 10/18/16 06/18/22 documented as of this encounter
--- OUTSIDE RECORDS SUMMARY | 2024-06-08 12:48 | XMS_ITS | Encounter Summary ---
Author Organization [facility] Address [facility] [place] [address] Care Team Providers Care Supervisor Cigarette Making Department Name Role Phone DioJovani franks Primary Care Provider Encounter Details Date Type Department Care Team (Latest Contact Info) Description 06/20/2020 1:45 PM EST Clinical Support Dermatology at [address] [address] Dominguez Lopez MD [facility] [place] [address] Visit for wound check Social History Tobacco [...] antibiotic the evening before. Prescription sent to [facility] in [place], [place]. Dominguez Lopez MD PhD Mohs Micrographic Surgery and Dermatologic Oncology Department of Dermatology documented in this encounter Plan of Treatment Upcoming Encounters Date Type Department Care Team (Latest Contact Info) Description 06/19/2024 1:40 PM EST Clinical Support [place] [address] 06/19/2024 2:00 PM EST Office Visit [place] [address] Pepe Horton MD [facility] [place] [address] 08/10/2024 10:00 AM EDT Laboratory Appointment Lab [address] [place] [address] 08/10/2024 11:20 AM EDT Office Visit Neph[place] [address] Jovani Richardson MD [facility] [place] [address] A, Nurse Clinician None 08/20/2024 7:30 AM EDT Hospital Encounter [place] [address] Lawrence Gar MD [facility] [place] [address] 08/20/2024 7:30 AM EDT - 08/20/2024 8:15 AM EDT Surgery [place] [address] Lawrence Gar MD [facility] [place] [address] EGD, UPPER GI ENDOSCOPY (WRVU 2.09) 11/17/2024 4:20 PM EDT Office [place] [address] Lawrence Gar MD [facility] [place] [address] Scheduled Procedures Name Priority Associated Diagnoses Date/Ti me EGD, UPPER GI ENDOSCOPY (WRVU 2.09) Sharma's esophagus with high grade dysplasia 08/20/2024 7:30 AM EDT documented as of this encounter Visit Diagnoses Diagnosis Visit for wound check Encounter for other specified aftercare Sharma's esophagus with high grade dysplasia Sharma's esophagus documented in this encounter Care Teams Supervisor Cigarette Making Department Relationship Specialty Start Date End Date Jovani Wharton DO [address] [place] [address] [place] [address] PCP - General Family Medicine 10/18/16 06/18/22 documented as of this encounter
--- OUTSIDE RECORDS SUMMARY | 2024-06-08 12:48 | XMS_ITS | Encounter Summary ---
[place] [address] Care Team Providers Care Upholstery Estimator Name Role Phone DioJovani franks Primary Care Provider [phone] Reason for Visit * Reason Onset Date Comments Pre Procedure Call 06/29/2019 Encounter Details Date Type Department Care Team (Late st Contact Info) Description 06/29/2019 Telephone Dermatology at [address] [address] Milvia Mancilla, RN Pre Procedure [...] EST Clinical Support [place] [address] 06/19/2024 2:00 PM EST Office Visit [place] [address] Pepe Horton MD [facility] [place] [address] 08/10/2024 10:00 AM EDT Laboratory Appointment Lab [address] [place] [address] 08/10/2024 11:20 AM EDT Office Visit Nephrology [place] [address] Jovani Richardson MD [facility] [place] [address] A, Nurse Clinician None 08/20/2024 7:30 AM EDT Hospital Encounter [place] [address] Lawrence Gar MD [facility] [place] [address] 08/20/2024 7:30 AM EDT - 08/20/2024 8:15 AM EDT Surgery [place] [address] Lawrence Gar MD [facility] [place] [address] EGD, UPPER GI ENDOSCOPY (WRVU 2.09) 11/17/2024 4:20 PM EDT Office Visit [place] [address] Lawrence Gar MD [facility] [place] [address] Scheduled Procedures Name Priority Associated Diagnoses Date/Ti me EGD, UPPER GI ENDOSCOPY (WRVU 2.09) Sharma's esophagus with high grade dysplasia 08/20/2024 7:30 AM EDT documented as of this encounter Visit Diagnoses Not on filedocumented in this encounter Care Teams Upholstery Estimator Relationship Specialty Start Date End Date Jovani Wharton DO [address] [place] [address] [address] [place] [address] [place] [address] PCP - General Family Medicine 10/18/16 06/18/22 documented as of this encounter
--- OUTSIDE RECORDS SUMMARY | 2024-06-08 12:48 | XMS_ITS | Encounter Summary ---
[place] [address] Care Team Providers Care Order Packer Or Packager Name Role Phone Dio, Jovani MCCAIN Primary Care Provider [phone] Reason for Visit * Reason Onset Date Comments Reminder Appointment 08/09/2020 Encounter Details Date Type Department Care Team (Late st Contact Info) Description 08/09/2020 Telephone [place] [address] Whitney Reyes CCMA Reminder Appointment Social History [...] EST Clinical Support [place] [address] 06/19/2024 2:00 PM EST Office Visit Solid Organ Transplant at [place] [phone] Pepe Horton MD [facility] [place] [address] 08/10/2024 10:00 AM EDT Laboratory Appointment Lab 3[place] [address] 08/10/2024 11:20 AM EDT Office Visit Nephrology Hypertension at [address]1000 Jovani Richardson MD [facility] [place] [address] A, Nurse Clinician None 08/20/2024 7:30 AM EDT Hospital Encounter Gastroenterology at [place] [phone] Lawrence Gar MD [facility] [place] [address] 08/20/2024 7:30 AM EDT - 08/20/2024 8:15 AM EDT Surgery Gastroenterology at [place] [phone] Lawrence Gar MD [facility] [place] [address] EGD, UPPER GI ENDOSCOPY (WRVU 2.09) 11/17/2024 4:20 PM EDT Office Visit Gastroenterology at [place] [phone] Lawrence Gar MD [facility] [place] [address] Scheduled Procedures Name Priority Associated Diagnoses Date/Ti me EGD, UPPER GI ENDOSCOPY (WRVU 2.09) Sharma's esophagus with high grade dysplasia 08/20/2024 7:30 AM EDT documented as of this encounter Visit Diagnoses Not on filedocumented in this encounter Care Teams Order Packer Or Packager Relationship Specialty Start Date End Date Jovani Wharton DO [address] [place] [address] [place] [address] PCP - General Family Medicine 10/18/16 06/18/22 documented as of this encounter
--- OUTSIDE RECORDS SUMMARY | 2024-06-08 12:48 | XMS_ITS | Encounter Summary ---
Author Organization [facility] Address [facility] [place] [address] Care Team Providers Care Engine Room Operator Name Role Phone DioJovani franks Primary Care Provider Encounter Details Date Type Department Care Team (Latest Contact Info) Description 07/04/2020 2:30 PM EST Procedure visit Dermatology at [place] [address] [place] [address] Dominguez Lopez MD [facility] [place] [address] Squamous cell carcinoma of skin of ear, [...] Patient Instructions * Patient Instructions* Mi Banda, COP - 07/04/2020 2:30 PM EST Your staff surgeon today was Dominguez Lopez MD,PhD. Your wound(s) was repaired by jvcg-cl-yjsg stitches called a primary repair. You do [...] pounds for 5-7 days postoperatively. 5. Some wildlife enforcement major may need to be delayed or delegated [...] as often as is recommended by your java j2ee lead, for new skin cancers. This is once [...] it. If after hours, please call the fastener sewing machine operator or [phone] and ask for the java j2ee lead on-call. If you have any non-urgent questions or concerns, please feel free to call my office or contact me through our patient portal, [employer], at [email or web address] How to contact us during business hours Dermatology at [facility] [address]: Mohs scheduling or Mohs follow-up appointments: [phone] documented in this encounter Progress Notes * [...] EST Clinical Support [place] [address] 06/19/2024 2:00 PM EST Office Visit [place] [address] Pepe Horton MD [facility] [place] [address] 08/10/2024 10:00 AM EDT Laboratory Appointment Lab [address] [place] [address] 08/10/2024 11:20 AM EDT Office Visit Nephrology Hypertension at [place] [address] Jovani Richardson MD [facility] [place] [address] A, Nurse Clinician None 08/20/2024 7:30 AM EDT Hospital Encounter Gastroenterology at [place] [address] Lawrence Gar MD [facility] [place] [address] 08/20/2024 7:30 AM EDT - 08/20/2024 8:15 AM EDT Surgery Gastroenterology at [place] [phone] Lawrence Gar MD [facility] [place] [address] EGD, UPPER GI ENDOSCOPY (WRVU 2.09) 11/17/2024 4:20 PM EDT Office Visit Gastroenterology at [place] [phone] Lawrence Gar MD [facility] [place] [address] Scheduled Procedures Name Priority Associated Diagnoses Date/Ti me EGD, UPPER GI ENDOSCOPY (WRVU 2.09) Sharma's esophagus with high grade dysplasia 08/20/2024 7:30 AM EDT documented as of this encounter Visit Diagnoses Diagnosis Squamous cell carcinoma of skin of ear, 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
--- OUTSIDE RECORDS SUMMARY | 2024-06-08 12:48 | XMS_ITS | Encounter Summary ---
Author Organization [facility] Address [facility] [place] [address] Care Team Providers Care Director Operations Broadcast Name Role Phone Jovani Wharton DO Primary Care Provider Reason for Visit * Reason Comments Skin Lesion * Consultation (Routine) - Closed Specialty Diagnoses / Procedures Referred By Devaughn bobo Referred To Contact Dermatology Diagnoses TINEA CORPORIS Jovani Wharton DO [address] [place] [address] [facility] Dermatology [address] [place] [address] Referral ID Status Reason Start Date Expiration Date V isits Requested Visits Authorized [id number] Closed Consult, Test & Treat Connection Center 04/18/2018 04/18/2019 1 1 Encounter Details Date Type Department Care Team (Late st Contact Info) Description 06/18/2018 3:00 PM EST Office Visit Dermatology at [facility] [address] [place] [phone] Sharyn Shepherd MD [facility] DR TOM [place] [address] Candelaria Coleman PA Nummular eczema Social History Tobacco Use Types [...] Elise Coleman) and documented with patient consent. LOS:[id number] RTC: PRN Note initiated by Michelle Guy [...] Reviewed and signed by Candelaria Coleman PA-C [facility] Patient seen in conjunction with staff manager fashion: Sharyn Shepherd MD Section of Dermatology [facility] * Sharyn Shepherd MD - 06/18/2018 [...] by: SHARYN SHEPHERD MD Section of Dermatology [facility] documented in this encounter Plan of Treatment Upcoming Encounters Date Type Department Care Team (Latest Contact Info) Description 06/19/2024 1:40 PM EST Clinical Support Solid Organ Transplant at [place] [phone] 06/19/2024 2:00 PM EST Office Visit [place] [address] Pepe Horton MD [facility] [place] [address] 08/10/2024 10:00 AM EDT Laboratory Appointment Lab [address] [place] [address] 08/10/2024 11:20 AM EDT Office Visit Nephrology [place] [address] Jovani Richardson MD [facility] [place] [address] A, Nurse Clinician None 08/20/2024 7:30 AM EDT Hospital Encounter Gastroenterology at [place] [phone] Lawrence Gar MD [facility] [place] [address] 08/20/2024 7:30 AM EDT - 08/20/2024 8:15 AM EDT Surgery Gastroenterology at [place] [phone] Lawrence Gar MD [facility] [place] [address] EGD, UPPER GI ENDOSCOPY (WRVU 2.09) 11/17/2024 4:20 PM EDT Office [place] [address] Lawrence Gar MD [facility] [place] [address] Scheduled Procedures Name Priority Associated Diagnoses Date/Ti me EGD, UPPER GI ENDOSCOPY (WRVU 2.09) Sharma's esophagus with high grade dysplasia 08/20/2024 7:30 AM EDT documented as of this encounter Visit Diagnoses Diagnosis Nummular eczema Contact dermatitis and other eczema, due to unspecified cause Sharma's esophagus with high grade dysplasia Sharma's esophagus documented in this encounter Care Teams Director Operations Broadcast Relationship Specialty Start Date End Date Jovani Wharton DO [address] [place] [address] PCP - General Family Medicine 10/18/16 06/18/22 documented as of this encounter
--- OUTSIDE RECORDS SUMMARY | 2024-06-08 12:48 | XMS_ITS | Encounter Summary ---
[place] [address] Care Team Providers Care Pharmacist Hospital Name Role Phone Jovani Wharton DO Primary Care Provider [phone] Encounter Details Date Type Department Care Team (Late st Contact Info) Description 09/22/2020 Telephone [place] [address] Lorenza Solis Social History Tobacco Use Types Packs/Day Years Used Date Smoking Tobacco: Never Smokeless Tobacco: Never Sex and Gender Information Value Date Recorded Sex Assigned at Not on file Gender Identity Not on file Sexual Orientation Not on file documented as of this encounter Miscellaneous Notes * Telephone Encounter - Lorenza Solis - 09/22/2020 11:46 AM EDT Mathew Mendez [id number] Diagnosis/Indication: pancreatitis/crc 1. Have you ever had a/an Upper Endoscopy & Colonoscopy before? Yes: Date egd [place] 2 yrs ago, colo more than 10 [...] to patient: You must have a responsible alliance party [...] EST Clinical Support [place] [address] 06/19/2024 2:00 PM EST Office [place] [address] Pepe Horton MD [facility] [place] [address] 08/10/2024 10:00 AM EDT Laboratory Appointment Lab [address] [address] 08/10/2024 11:20 AM EDT Office Visit Ne[place] [address] Jovani Richardson MD [facility] [place] [address] A, Nurse Clinician None 08/20/2024 7:30 AM EDT Hospital Encounter Gastroenterology at [place] [phone] Lawrence Gar MD [facility] [place] [address] 08/20/2024 7:30 AM EDT - 08/20/2024 8:15 AM EDT Surgery Gastroenterology at [place] [phone] Lawrence Gar MD [facility] [place] [address] EGD, UPPER GI ENDOSCOPY (WRVU 2.09) 11/17/2024 4:20 PM EDT Office Visit Gastroenterology at [place] [phone] Lawrence Gar MD [facility] [place] [address] Scheduled Procedures Name Priority Associated Diagnoses Date/Ti me EGD, UPPER GI ENDOSCOPY (WRVU 2.09) Sharma's esophagus with high grade dysplasia 08/20/2024 7:30 AM EDT documented as of this encounter Visit Diagnoses Not on filedocumented in this encounter Care Teams Pharmacist Hospital Relationship Specialty Start Date End Date Jovani Wharton DO [address] [place] [address] PCP - General Family Medicine 10/18/16 06/18/22 documented as of this encounter
--- OUTSIDE RECORDS SUMMARY | 2024-06-08 12:48 | XMS_ITS | Encounter Summary ---
[place] [address] Care Team Providers Care Treatment Plant Mechanic Name Role Phone DioJovani franks Primary Care Provider Encounter Details Date Type Department Care Team (Late st Contact Info) Description 04/14/2021 Telephone [place] [address] Christiana Haq Social History Tobacco [...] but we can schedule him with our RETAIL SALES MANAGER. documented in this encounter Plan of Treatment Upcoming Encounters Date Type Department Care Team (Latest Contact Info) Description 06/19/2024 1:40 PM EST Clinical Support [place] [phone] 06/19/2024 2:00 PM EST Office Visit Solid Organ Transplant at [place] [phone] Pepe Horton MD [facility] [place] [address] 08/10/2024 10:00 AM EDT Laboratory Appointment Lab [address] [address] 08/10/2024 11:20 AM EDT Office Visit Nephrology Hypertension at [address] Jovani Richardson MD [facility] [place] [address] A, Nurse Clinician None 08/20/2024 7:30 AM EDT Hospital Encounter Gastroenterology at [address] Lawrence Gar MD [facility] [place] [address] 08/20/2024 7:30 AM EDT - 08/20/2024 8:15 AM EDT Surgery Gastroenterology at [place] [phone] Lawrence Gar MD [facility] [place] [address] EGD, UPPER GI ENDOSCOPY (WRVU 2.09) 11/17/2024 4:20 PM EDT Office [place] [address] Lawrence Gar MD [facility] [place] [address] Scheduled Procedures Name Priority Associated Diagnoses Date/Ti me EGD, UPPER GI ENDOSCOPY (WRVU 2.09) Sharma's esophagus with high grade dysplasia 08/20/2024 7:30 AM EDT documented as of this encounter Visit Diagnoses Not on filedocumented in this encounter Care Teams Treatment Plant Mechanic Relationship Specialty Start Date End Date Jovani Wharton DO [address] [place] [address] PCP - General Family Medicine 10/18/16 06/18/22 documented as of this encounter
--- OUTSIDE RECORDS SUMMARY | 2024-06-08 12:48 | XMS_ITS | Encounter Summary ---
Author Organization [facility] [place] [address] Care Team Providers Care Kick Boxer Name Role Phone Jovani Wharton DO Primary Care Provider Encounter Details Date Type Department Care Team (Late st Contact Info) Description 06/02/2020 Ancillary Procedure Radiology Library [place] [address] Jovani Wharton DO [address] [place], [place] [address] Social History Tobacco Use Types Packs/Day Years [...] EST Clinical Support [place] [address] 06/19/2024 2:00 PM EST Office Visit [place] [address] Pepe Horton MD [facility] [place] [address] 08/10/2024 10:00 AM EDT Laboratory Appointment Lab [address] [place] [address] 08/10/2024 11:20 AM EDT Office Visit Nephrology Hypertension at [place] [address] Jovani Richardson MD [facility] [place] [address] A, Nurse Clinician None 08/20/2024 7:30 AM EDT Hospital Encounter Gastroenterology at [place] [address] Lawrence Gar MD [facility] [place] [address] 08/20/2024 7:30 AM EDT - 08/20/2024 8:15 AM EDT Surgery Gastroenterology at [place] [phone] Lawrence Gar MD [facility] [place] [address] EGD, UPPER GI ENDOSCOPY (WRVU 2.09) 11/17/2024 4:20 PM EDT Office Visit Gastroenterology at [place] [phone] Lawrence Gar MD [facility] [place] [address] Scheduled Procedures Name Priority Associated Diagnoses Date/Ti [...] & Pelvis (06/02/2020 12:00 AM EST) Narrative BENNY NUNEZ - 07/23/2021 9:13 PM EST This exam is auto-finalizing. It's purpose is for storage only. Jovani Wharton DO IM FILM LIBRARY ORD ERABLES ENRIQUE [place] documented in this encounter Visit Diagnoses Not on filedocumented in this encounter Care Teams Kick Boxer Relationship Specialty Start Date End Date Jovani Wharton DO [address] [place] [address] PCP - General Family Medicine 10/18/16 06/18/22 documented as of this encounter
--- OUTSIDE RECORDS SUMMARY | 2024-06-08 12:48 | XMS_ITS | Encounter Summary ---
Author Organization Pending Sale To [facility] Address [facility] [place] [address] Care Team Providers Care Interior Designer Name Role Phone DioJovani franks Primary Care Provider [phone] Encounter Details Date Type Department Care Team (Late st Contact Info) Description 08/11/2020 10:00 AM EDT Office Visit Dermatology at [facility] [address] [place] [address] Deb Hamlin MD [facility] DR TOM FERNANDEZ-[place] [address] [place] (actinic keratosis); Nummular eczema Social History [...] by Dr. Hamlin: 04/25/2020 Last seen in [facility] Dermatology: 04/25/2020 Here today with the following [...] allopurinoL, amLODIPine, cephALEXin, cyanocobalamin (Vitamin B-12), lansoprazole, gxwdju-juaipqew-lpxtlvg DR, lisinopriL, magnesium, and metoprolol succinate XL [...] and signed by: Deb Hamlin MD Dermatology [facility] documented in this encounter Plan of Treatment Upcoming Encounters Date Type Department Care Team (Latest Contact Info) Description 06/19/2024 1:40 PM EST Clinical Support [place] [address] 06/19/2024 2:00 PM EST Office Visit Solid Organ Transplant at [place] [phone] Pepe Horton MD [facility] [place] [address] 08/10/2024 10:00 AM EDT Laboratory Appointment Lab [address] [address] 08/10/2024 11:20 AM EDT Office Visit Nephrology Hypertension at [place] [address] Jovani Richardson MD [facility] [place] [address] A, Nurse Clinician None 08/20/2024 7:30 AM EDT Hospital Encounter Gastroenterology at [place] [address] Lawrence Gar MD [facility] [place] [place] [address] 08/20/2024 7:30 AM EDT - 08/20/2024 8:15 AM EDT Surgery [place] [address] Lawrence Gar MD [facility] [place] [address] EGD, UPPER GI ENDOSCOPY (WRVU 2.09) 11/17/2024 4:20 PM EDT Office Visit Gastroenterology at [place] [phone] Lawrence Gar MD [facility] [place] [address] Scheduled Procedures Name Priority Associated Diagnoses Date/Ti me EGD, UPPER GI ENDOSCOPY (WRVU 2.09) Sharma's esophagus with high grade dysplasia 08/20/2024 7:30 AM EDT documented as of this encounter Visit Diagnoses Diagnosis [place] (actinic keratosis) Actinic keratosis Nummular eczema Contact dermatitis and other eczema, due to unspecified cause Sharma's esophagus with high grade dysplasia Sharma's esophagus documented in this encounter Care Teams Interior Designer Relationship Specialty Start Date End Date Jovani Wharton DO [address] [place] [address] PCP - General Family Medicine 10/18/16 06/18/22 documented as of this encounter
--- OUTSIDE RECORDS SUMMARY | 2024-06-08 12:48 | XMS_ITS | Encounter Summary ---
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 Social History Tobacco Use Types Packs/Day Years Used Date Smoking Tobacco: Never Smokeless Tobacco: Never Sex and Gender Information Value Date Recorded Sex Assigned at Not on file Gender Identity Not on file Sexual Orientation Not on file documented as of this encounter Progress Notes * Alan Jaffe, SLIVER FORMER - 06/14/2020 10:45 AM EST Mohs consultation [...] EST Clinical Support [place] [address] 06/19/2024 2:00 PM EST Office Visit [place] [address] Pepe Horton MD [facility] DR [place] [address] 08/10/2024 10:00 AM EDT Laboratory Appointment Lab [address] [place] [address] 08/10/2024 11:20 AM EDT Office Visit Nephrology [place] [address] Jovani Richardson MD [facility] [place] [address] A, Nurse Clinician None 08/20/2024 7:30 AM EDT Hospital Encounter Gastroenterology at [place] [phone] Lawrence Gar MD [facility] [place] [address] 08/20/2024 7:30 AM EDT - 08/20/2024 8:15 AM EDT Surgery Gastroenterology at [place] [phone] Lawrence Gar MD [facility] [place] [address] EGD, UPPER GI ENDOSCOPY (WRVU 2.09) 11/17/2024 4:20 PM EDT Office Visit Gastroenterology at [place] [phone] Lawrence Gar MD [facility] [place] [address] Scheduled Procedures Name Priority Associated Diagnoses Date/Ti me EGD, UPPER GI ENDOSCOPY (WRVU 2.09) Sharma's esophagus with high grade dysplasia 08/20/2024 7:30 AM EDT documented as of this encounter Visit Diagnoses Diagnosis 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
--- OUTSIDE RECORDS SUMMARY | 2024-06-08 12:48 | XMS_ITS | Encounter Summary ---
Author Organization [facility] Address [facility] [place] [address] Care Team Providers Care Tenderizer Tender Name Role Phone DioJovani franks Primary Care Provider Reason for Visit * Reason Comments Skin Check Encounter Details Date Type Department Care Team (Late st Contact Info) Description 07/13/2019 11:15 AM EST Office Visit Dermatology at [address] [address] Deb Hamlin MD [facility] [place] [address] Actinic keratoses; Actinic skin damage; History of [...] ?? Other No ? 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 Medications: allopurinoL, amLODIPine, [...] defined scaly pink papules on the right congregational x 3, right mid superior helix x [...] persist. Note initiated by Adela Pino CMA. Rowanpamela Abrams has performed the documentation for this encounter in the presence of and acting as a scribe for Dr. Hamlin. I performed the above scribed service and agree with the accuracy of the documentation in this encounter. Reviewed and signed by: Deb Hamlin MD Dermatology [facility] documented in this encounter Plan of Treatment Upcoming Encounters Date Type Department Care Team (Latest Contact Info) Description 06/19/2024 1:40 PM EST Clinical Support [place] [address] 06/19/2024 2:00 PM EST Office Visit [place] [address] Pepe Horton MD [facility] [place] [address] 08/10/2024 10:00 AM EDT Laboratory Appointment Lab [address] [place] [address] 08/10/2024 11:20 AM EDT Office Visit Neph[place] [address] Jovani Richardson MD [facility] [place] [address] A, Nurse Clinician None 08/20/2024 7:30 AM EDT Hospital Encounter Gastroenterology at [place] [phone] Lawrence Gar MD [facility] [place] [address] 08/20/2024 7:30 AM EDT - 08/20/2024 8:15 AM EDT Surgery Gastroenterology at [place] [phone] Lawrence Gar MD [facility] [place] [address] EGD, UPPER GI ENDOSCOPY (WRVU 2.09) 11/17/2024 4:20 PM EDT Office [place] [address] Lawrence Gar MD [facility] [place] [address] Scheduled Procedures Name Priority Associated Diagnoses Date/Ti [...] esophagus documented in this encounter Care Teams Tenderizer Tender Relationship Specialty Start Date End Date Jovani Wharton DO [address] [place] [address] PCP - General Family Medicine 10/18/16 06/18/22 documented as of this encounter
--- OUTSIDE RECORDS SUMMARY | 2024-06-08 12:48 | XMS_ITS | Encounter Summary ---
Author Organization [facility] Address [facility] [place] [address] Care Team Providers Care Cloth Mender Name Role Phone Dio, Jovani MCCAIN Primary Care Provider [phone] Encounter Details Date Type Department Care Team (Late st Contact Info) Description 10/20/2020 1:00 PM EDT - 10/20/2020 2:30 PM EDT Surgery [place] [address] Lawrence Gar MD [facility] [place] [address] EGD WITH BIOPSY (WRVU 2.39) Social History [...] the day after the procedure, use an dwxv-ygy-rxznnmm spray to numb your throat. Sucking on [...] occurs, please contact your Doctor. Please call [phone] before 8pm Mon-Fri with problems, questions or concerns. If you call after 8pm or on weekends, call the Hospital at [phone] and ask to speak to the Parking Meter Collector synchronizer and the woodyard crane operator will contact that person for you. When should you call for help? Call [phone] anytime you think you may need emergency [...] any problems. Where can you learn more? [facility] View your After Visit Summary and more online at [email or web address] If you would like to provide [...] cost to you. Content Version: 12.2 ?? 2862-8535 [employer]. Care instructions adapted under license by [facility]. If you have questions about a medical condition or this instruction, always ask your healthcare professional. [employer] disclaims any warranty or liability for your [...] the day after the procedure, use an buex-fxk-ppctblu spray to numb your throat. Sucking on [...] occurs, please contact your Doctor. Please call [phone] before 8pm Mon-Fri with problems, questions or concerns. If you call after 8pm or on weekends, call the Hospital at [phone] and ask to speak to the Parking Meter Collector synchronizer and the woodyard crane operator will contact that person for you. When should you call for help? Call [phone] anytime you think you may need emergency [...] any problems. Where can you learn more? [facility] View your After Visit Summary and more online at [email or web address] If you would like to provide [...] cost to you. Content Version: 12.2 ?? 0245-2599 [employer]. Care instructions adapted under license by [facility]. If you have questions about a medical condition or this instruction, always ask your healthcare professional. [employer] disclaims any warranty or liability for your [...] x 3 weeks 40 g 08/11/2020 08/17/2022 cbfdpi-xthkburb-mqhmyg e DR (Creon 6) 6,000-19,000 -30,000 unit [...] to Encounter Medication Sig Dispense Refill ??? jbaffu-lnmdvult-qjsfroe DR (Creon 6) 6,000-19,000 -30,000 unit Capsule, [...] the past 24 hour(s)). ASSESSMENT AND PLAN aMthew Mendez is a 65 y.o. y/o who [...] MD - 10/20/2020 1:12 PM EDT [facility] Operative Note Patient Name: Mathew Mendez : [id number] MR#: [id number] Case Date: 10/20/2020 Surgeon: Surgeon(s) and Role: [...] EST Clinical Support [place] [address] 06/19/2024 2:00 PM EST Office Visit [place] [address] Pepe Horton MD [facility] [place] [address] 08/10/2024 10:00 AM EDT Laboratory Appointment Lab [address] [address] 08/10/2024 11:20 AM EDT Office Visit Nephrology Hypertension at [address] Jovani Richardson MD [facility] [place] [address] A, Nurse Clinician None 08/20/2024 7:30 AM EDT Hospital Encounter Gastroenterology at [place] [phone] Lawrence Gar MD [facility] [place] [address] 08/20/2024 7:30 AM EDT - 08/20/2024 8:15 AM EDT Surgery Gastroenterology at [place] [phone] Lawrence Gar MD [facility] [place] [address] EGD, UPPER GI ENDOSCOPY (WRVU 2.09) 11/17/2024 4:20 PM EDT Office Visit Gastroenterology at [place] [phone] Lawrence Gar MD [facility] [place] [address] Scheduled Procedures Name Priority Associated Diagnoses Date/Ti [...] 2:16 PM EDT Colonoscopy, Remv Lesn, Snare ([id number]) 10/20/2020 1:03 PM EDT Alcohol-induced chronic pancreatitis Screen for colon cancer Gastroesophageal reflux disease, unspecified whether esophagitis present UPPER EUS- ENDOSCOPIC ULTRASOUND (WRVU 3.47) 10/20/2020 1:03 PM EDT Alcohol-induced chronic pancreatitis Screen for colon cancer Gastroesophageal reflux disease, unspecified whether esophagitis present Upper Gi Endoscopy, Biopsy ([id number]) 10/20/2020 1:03 PM EDT Alcohol-induced chronic pancreatitis Screen for colon cancer Gastroesophageal reflux disease, unspecified whether esophagitis present UPPER EUS-ENDOSCOPIC ULTRASOUND Routine 10/20/2020 12:46 PM EDT COLONOSCOPY Routine 10/20/2020 12:46 PM EDT documented in this encounter Results * Surgical Pathology Report (10/20/2020 2:16 PM EDT) Final Diagnosis [id number] ? Location: 4; [facility]; A The signing pathologist has (i) examined [...] Verified: ??11/02/2020 15:00 ??Pathologist Performed at: ??-[facility] Dept. of Pathology, [place], [place] DISCUSSION A - ??The findings are [...] and bisected ??MLL 11/02/2020 3:00 PM EDT [facility] GI Biopsy 10/20/2020 2:16 PM EDT 10/20/2020 2:16 PM EDT GI Biopsy 10/20/2020 2:16 PM EDT 10/20/2020 2:16 PM EDT GI Biopsy 10/20/2020 2:16 PM EDT 10/20/2020 2:16 PM EDT GI Biopsy 10/20/2020 2:16 PM EDT 10/20/2020 2:16 PM EDT GI Biopsy 10/20/2020 2:16 PM EDT 10/20/2020 2:16 PM EDT Lawrence Gar MD PATHOLOGY/CYTOLOGY O SONIYA Performing Organization Address [facility]/ZIP Co de Phone Number [facility] [place] [address] * Specimen to Pathology (10/20/2020 2:16 PM EDT) AP Specimen 10/20/2020 2:16 PM EDT 10/20/2020 2:16 PM EDT Narrative [facility] - 10/20/2020 2:16 PM EDT Specimen requisition ordered. ??Separate Pathology report to follow Lawrence Gar MD PATHOLOGY/CYTOLOGY O SONIYA Performing Organization Address [facility]/[place] [address] * Specimen to Pathology (10/20/2020 2:16 PM EDT) AP Specimen 10/20/2020 2:16 PM EDT 10/20/2020 2:16 PM EDT Narrative [facility] - 10/20/2020 2:16 PM EDT Specimen requisition ordered. ??Separate Pathology report to follow Lawrence Gar MD PATHOLOGY/CYTOLOGY O RDALBERTINA Performing Organization Address [facility] [place] [address] * Specimen to Pathology (10/20/2020 2:16 PM EDT) AP Specimen 10/20/2020 2:16 PM EDT 10/20/2020 2:16 PM EDT Narrative [facility] - 10/20/2020 2:16 PM EDT Specimen requisition ordered. ??Separate Pathology report to follow Lawrence Gar MD PATHOLOGY/CYTOLOGY O SONIYA Performing Organization Address [facility]/[place] [address] * Specimen to Pathology (10/20/2020 2:16 PM EDT) AP Specimen 10/20/2020 2:16 PM EDT 10/20/2020 2:16 PM EDT Narrative [facility] - 10/20/2020 2:16 PM EDT Specimen requisition ordered. ??Separate Pathology report to follow Lawrence Gar MD PATHOLOGY/CYTOLOGY O RDALBERTINA Performing Organization Address [facility]/[place] [address] * Specimen to Pathology (10/20/2020 2:16 PM EDT) AP Specimen 10/20/2020 2:16 PM EDT 10/20/2020 2:16 PM EDT Narrative [facility] - 10/20/2020 2:16 PM EDT Specimen requisition ordered. ??Separate Pathology report to follow Lawrence Gar MD PATHOLOGY/CYTOLOGY Eugenie BYRNES [facility] [place] [address] * UPPER EUS-ENDOSCOPIC ULTRASOUND (10/20/2020 12:46 PM EDT) UPPER ENDOSCOPIC ULTRASOUND [facility] Endoscopy Procedure Date: 10/20/2020 12:46 PM ? Patient Name: Mathew Mendez ? N: [id number] ? Date of : 1955 ? Age: 65 ? Order #: [id number] ? Instrument Name: [id number] ? Procedure: ? Upper EUS Indications: ? Dysphagia, Follow-up of ? gastro-esophageal reflux disease Providers: ? Lawrence Gar MD, Sarina Pinto, ? Ilya Scales MD: ?Jovani Wharton, DO Medicines: ? Monitored Anesthesia Care Complications: ? No immediate complications. Procedure: ? Pre-Anesthesia Assessment: ? - [place] Protocol: ? - Pre-procedure Verification: Prior ? [...] by the physician, the nurse, ? the mixing place supervisor and the processing technician in ? the pre-procedure area in [...] Procedure Code(s): ?? --- Professional --- ? 00137, Esophagogastroduodenos copy, ? flexible, transoral; with endoscopic ? ultrasound examination, including the ? esophagus, stomach, and either the ? duodenum or a surgically altered ? stomach where the jejunum is examined ? distal to the anastomosis ? 29583, Esophagogastroduodenos copy, ? flexible, transoral; with biopsy, [...] ? disease without esophagitis CPT copyright 2019 [employer]. All rights reserved. The codes documented in this report are preliminary and upon php software engineer review may be revised to meet current [...] * COLONOSCOPY (10/20/2020 12:46 PM EDT) COLONOSCOPY [facility] Endoscopy Procedure Date: 10/20/2020 12:46 PM ? Patient Name: Mathew Mendez ? Date of : 1955 ? Age: 65 ? Order #: [id number] ? Instrument Name: [id number] ? Procedure: ? Colonoscopy Indications: ? Screening for colorectal malignant ? neoplasm Providers: ? Lawrence Gar MD, Sarina Pinto, ? Ilya Scales Referring MD: ?Jovani Wharton, DO Medicines: ? Monitored Anesthesia Care Complications: ? No immediate complications. Procedure: ? Pre-Anesthesia Assessment: ? - [place] Protocol: ? - Pre-procedure Verification: Prior ? [...] by the physician, the nurse, ? the mixing place supervisor and the processing technician in ? the procedure room. ? [...] Procedure Code(s): ?? --- Professional --- ? 67801, Colonoscopy, flexible; with ? removal of tumor(s), [...] and ? anastomosis status CPT copyright 2019 [employer]. All rights reserved. The codes documented in this report are preliminary and upon php software engineer review may be revised to meet current [...] CRNA) documented in this encounter Care Teams Cloth Mender Relationship Specialty Start Date End Date oJvani Wharton DO [address] [facility] 1 [place] [address] PCP - General Family Medicine 10/18/16 06/18/22 documented as of this encounter
--- OUTSIDE RECORDS SUMMARY | 2024-06-08 12:48 | XMS_ITS | Encounter Summary ---
Author Organization [facility] Address [facility] [place] [address] Care Team Providers Care Pinsetter Mechanic Helper Name Role Phone Jovani Wharton DO Primary Care Provider Reason for Visit * Consultation (Routine) - Closed Specialty Diagnoses / Procedures Referred By Devaughn bobo Referred To Contact Gastroenterology Diagnoses Acute pancreatitis without necrosis or infection, unspecified Pancreatitis Procedures Consult Jovani Wharton DO [address] [place] [address] [place] [address] [facility]astro [address] [place] [address] Referral ID Status Reason Start Date Expiration Date Visits Re quested Visits Authorized [id number] Closed 07/22/2020 07/22/2021 1 1 Encounter Details Date Type Department Care Team (Latest Contact Info) Description 08/09/2020 3:20 PM EDT TH Visit (TeleHealth) [place] [address] Lawrence Gar MD [facility] [place] [address] Gastroesophageal reflux disease, unspecified whether [...] partial colectomy many years ago here at [facility] for diverticulitis. He has not had a colonoscopy for several years. As stated above he currently feels better with improvement in his abdominal pain and bloating over the last few weeks but he is concerned about the possibility that his symptoms will recur. Current Outpatient Medications on File Prior to Visit Medication Sig Dispense Refill ??? 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 He is a non-smoker. Alcohol use in [...] of care regarding pancreatitis. Lawrence Gar MD managing member Director, GI Endoscopy Section of [place]astroenter[place] [address] Cc:Jovani Wharton DO documented in this encounter Plan of Treatment Upcoming Encounters Date Type Department Care Team (Latest Contact Info) Description 06/19/2024 1:40 PM EST Clinical Support [place] [address] 06/19/2024 2:00 PM EST Office [place] [address] Pepe Horton MD [facility] [place] [address] 08/10/2024 10:00 AM EDT Laboratory Appointment Lab [address] [place] [address] 08/10/2024 11:20 AM EDT Office Visit Nephrology Hypertension at [place] [address] Jovani Richardson MD [facility] [place] [address] A, Nurse Clinician None 08/20/2024 7:30 AM EDT Hospital Encounter Gastroenterology at [place] [phone] Lawrence Gar MD [facility] [place] [address] 08/20/2024 7:30 AM EDT - 08/20/2024 8:15 AM EDT Surgery Gastroenterology at [place] [phone] Lawrence Gar MD [facility] [place] [address] EGD, UPPER GI ENDOSCOPY (WRVU 2.09) 11/17/2024 4:20 PM EDT Office [place] [address] Lawrence Gar MD [facility] [place] [address] Scheduled Orders Name Type Priority Associated Diagnoses [...] esophagus documented in this encounter Care Teams Pinsetter Mechanic Helper Relationship Specialty Start Date End Date Jovani Wharton DO [address] [place] [address] PCP - General Family Medicine 10/18/16 06/18/22 documented as of this encounter
--- OUTSIDE RECORDS SUMMARY | 2024-06-08 12:48 | XMS_ITS | Encounter Summary ---
Author Organization [facility] Address [facility] [place] [address] Care Team Providers Care Pe Electrical Engineer Name Role Phone DioJovani franks Primary Care Provider [phone] Encounter Details Date Type Department Care Team (Latest Contact Info) Description 06/23/2020 2:15 PM EST Clinical Support Dermatology at [facility] [address] [place] [address] [facility] DR [place] [address] Visit for suture removal Social History Tobacco [...] EST Clinical Support [place] [address] 06/19/2024 2:00 PM EST Office Visit Solid Organ Transplant at [place] [address] [facility] [address] [place] [address] 08/10/2024 10:00 AM EDT Laboratory Appointment Lab [address] [place] [address] 08/10/2024 11:20 AM EDT Office Visit Nephrology Hypertension at [place] [address] [facility] [place] [address] A, Nurse Clinician None 08/20/2024 7:30 AM EDT Hospital Encounter Gastroenterology at [place] [phone] [facility] [place] [address] 08/20/2024 7:30 AM EDT - 08/20/2024 8:15 AM EDT Surgery Gastroenterology at [address] [facility] [place] [address] EGD, UPPER GI ENDOSCOPY (WRVU 2.09) 11/17/2024 4:20 PM EDT Office Visit [place] [address] [facility] [place] [address] Scheduled Procedures Name Priority Associated Diagnoses Date/Ti me EGD, UPPER GI ENDOSCOPY (WRVU 2.09) Sharma's esophagus with high grade dysplasia 08/20/2024 7:30 AM EDT documented as of this encounter Visit Diagnoses Diagnosis Visit for suture removal Encounter for removal of sutures Sharma's esophagus with high grade dysplasia Sharma's esophagus documented in this encounter Care Teams Pe Electrical Engineer Relationship Specialty Start Date End Date Jovani Wharton DO [address] [facility] 1 [place] [address] PCP - General Family Medicine 10/18/16 06/18/22 documented as of this encounter
--- OUTSIDE RECORDS SUMMARY | 2024-06-08 12:48 | XMS_ITS | Encounter Summary ---
Author Organization [facility] [place] [address] Care Team Providers Care Senior Systems Software Engineer Name Role Phone DioJovani franks Primary Care Provider Encounter Details Date Type Department Care Team (Late st Contact Info) Description 10/20/2020 1:03 PM EDT Anesthesia [place] [address] Guilherme Anderson MD [facility] [place] [address] Anesthesia Record Procedure Summary Procedure Name Responsible [...] 1245; median cubital vein (antecubital fossa), right; frgi-tjd-hfgmvf catheter system; 22 gauge; soy garcia rn; [...] Procedure Summary Date: 10/20/20 Room / Location: [facility] ENDO 2 / [facility]COPY Anesthesia Start: 1303 Anesthesia Stop: [...] All Anesthesia Providers: Anesthesiologist: Guilherme Anderson MD KNITTING MACHINE OPERATOR HELPER: Obey Amezquita CRNA Vitals Value Taken Time BP 145/90 10/20/20 1510 Temp Pulse 72 10/20/20 1440 Resp 16 10/20/20 1440 SpO2 100 % 10/20/20 1517 Pain Level 0 10/20/20 1440 Vitals shown include unvalidated device data. Patient Location: PACU/AKP Level of Consciousness: Conscious but Sleepy Pain [...] pancreatitis Added automatically from request for surgery [id number] ??? Screen for colon cancer Added automatically from request for surgery [id number] ??? Gastroesophageal reflux disease Added automatically from request for surgery [id number] No past medical history on file. No [...] risks discussed with patient. Plan discussed with KNITTING MACHINE OPERATOR HELPER. Anesthesia Screening documented in this encounter Plan of Treatment Upcoming Encounters Date Type Department Care Team (Latest Contact Info) Description 06/19/2024 1:40 PM EST Clinical Support Solid Organ Transplant at [place] [phone] 06/19/2024 2:00 PM EST Office Visit Solid Organ Transplant at [place] [phone] Pepe Horton MD [facility] [place] [address] 08/10/2024 10:00 AM EDT Laboratory Appointment Lab [address] [place] [address] 08/10/2024 11:20 AM EDT Office Visit Nephrology Hypertension at [place] [phone] Jovani Richardson MD [facility] [place] [address] A, Nurse Clinician None 08/20/2024 7:30 AM EDT Hospital Encounter Gastroenterology at [place] [phone] Lawrence Gar MD [facility] [place] [address] 08/20/2024 7:30 AM EDT - 08/20/2024 8:15 AM EDT Surgery [place] [address] Lawrence Gar MD [facility] [place] [address] EGD, UPPER GI ENDOSCOPY (WRVU 2.09) 11/17/2024 4:20 PM EDT Office [place] [address] Lawrence Gar MD [facility] [place] [address] Scheduled Procedures Name Priority Associated Diagnoses Date/Ti [...] hr documented in this encounter Care Teams Senior Systems Software Engineer Relationship Specialty Start Date End Date Jovani Wharton DO [facility] [address] [place] [address] PCP - General Family Medicine 10/18/16 06/18/22 documented as of this encounter
--- OUTSIDE RECORDS SUMMARY | 2024-06-08 12:48 | XMS_ITS | Encounter Summary ---
[place] [address] Care Team Providers Care Carpentry Specialist Name Role Phone DioJovani liu Primary Care Provider Encounter Details Date Type Department Care Team (Late st Contact Info) Description 08/22/2020 Telephone [place] [address] Cynthia Kim Social History Tobacco Use Types [...] EST Clinical Support [place] [address] 06/19/2024 2:00 PM EST Office [place] [address] Pepe Horton MD [facility] [place] [address] 08/10/2024 10:00 AM EDT Laboratory Appointment Lab [address] [place] [address] 08/10/2024 11:20 AM EDT Office Visit Nephrology Hypertension at [place] [address] Jovani Richardson MD [facility] [place] [address] A, Nurse Clinician None 08/20/2024 7:30 AM EDT Hospital Encounter Gastroenterology at [place] [address] Lawrence Gar MD [facility] [place] [address] 08/20/2024 7:30 AM EDT - 08/20/2024 8:15 AM EDT Surgery Gastroenterology at [place] [phone] Lawrence Gar MD [facility] [place] [address] EGD, UPPER GI ENDOSCOPY (WRVU 2.09) 11/17/2024 4:20 PM EDT Office Visit Gastroenterology at [place] [phone] Lawrence Gar MD [facility] [place] [address] Scheduled Procedures Name Priority Associated Diagnoses Date/Ti me EGD, UPPER GI ENDOSCOPY (WRVU 2.09) Sharma's esophagus with high grade dysplasia 08/20/2024 7:30 AM EDT documented as of this encounter Visit Diagnoses Not on filedocumented in this encounter Care Teams Carpentry Specialist Relationship Specialty Start Date End Date Jovani Wharton DO [address] [facility] 1 [place] [address] PCP - General Family Medicine 10/18/16 06/18/22 documented as of this encounter
--- OUTSIDE RECORDS SUMMARY | 2024-06-08 12:48 | XMS_ITS | Encounter Summary ---
[facility] Address [facility] [place] [address] Care Team Providers Care Water Resource Agent Name Role Phone DioJovani franks Primary Care Provider Encounter Details Date Type Department Care Team (Late st Contact Info) Description 04/25/2020 10:30 AM EST Office Visit Dermatology at [facility] [address] [place] [address] Deb Hamlin MD [facility] [place] [address] Xerosis of skin; Neoplasm of uncertain behavior [...] a 65 y.o. male Last seen in [facility] Dermatology: 01/14/2020 Here for evaluation of a [...] signed by: Deb Hamlin MD Dermatology [facility] * Deb Hamlin MD - 04/25/2020 10:30 [...] EST Clinical Support [place] [address] 06/19/2024 2:00 PM EST Office Visit [place] [address] Pepe Horton MD [facility] [place] [address] 08/10/2024 10:00 AM EDT Laboratory Appointment Lab [address] [place] [address] 08/10/2024 11:20 AM EDT Office Visit Nephrology Hypertension at [place] [address] Jovani Richardson MD [facility] [place] [address] A, Nurse Clinician None 08/20/2024 7:30 AM EDT Hospital Encounter Gastroenterology at [place] [address] Lawrence Gar MD [facility] [place] [address] 08/20/2024 7:30 AM EDT - 08/20/2024 8:15 AM EDT Surgery Gastroenterology at [place] [phone] Lawrence Gar MD [facility] [place] [address] EGD, UPPER GI ENDOSCOPY (WRVU 2.09) 11/17/2024 4:20 PM EDT Office Visit Gastroenterology at [place] [phone] Lawrence Gar MD [facility] [place] [address] Scheduled Procedures Name Priority Associated Diagnoses Date/Ti [...] AM EST 04/25/2020 3:29 PM EST Narrative [facility] - 04/25/2020 3:29 PM EST Specimen requisition ordered. ??Separate Pathology report to follow Resulting Agency Comment Spec In Lab Deb Hamlin MD PATHOLOGY/CYTOLOGY O SONIYA [facility] [place] [address] * Surgical Pathology Report (04/25/2020 11:32 AM EST) Final Diagnosis [id number] ? Location: [facility] The signing pathologist has (i) examined the relevant preparation(s) for the specimen(s) and (ii) rendered or confirmed the diagnosis(es). . 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 of Pathology, [place], [place] SPECIMEN(S) SUBMITTED A - right mid [...] labeled A1-A2. ??pps 04/27/2020 2:41 PM EST [facility] SPECIMEN FROM SKIN / Unknown 04/25/2020 11:32 AM EST 04/25/2020 11:32 AM EST Deb Hamlin MD PATHOLOGY/CYTOLOGY O RDERABLES [facility] [place] [address] documented in this encounter Visit Diagnoses Diagnosis Xerosis of skin Other specified disease of sebaceous glands Neoplasm of uncertain behavior Neoplasm of uncertain behavior, site unspecified Sharma's esophagus with high grade dysplasia Sharma's esophagus documented in this encounter Care Teams Water Resource Agent Relationship Specialty Start Date End Date Jovani Wharton DO [address] [place] [address] PCP - General Family Medicine 10/18/16 06/18/22 documented as of this encounter
--- OUTSIDE RECORDS SUMMARY | 2024-06-08 12:48 | XMS_ITS | Encounter Summary ---
Author Organization Counts Include [address] [address] Care Team Providers Care Appraiser Name Role Phone Dio, Jovani MCCAIN Primary Care Provider [phone] Encounter Details Date Type Department Care Team (Latest Contact Info) Description 06/27/2021 2:00 PM EST Office Visit [place] [address] Mekhi Hernandez [facility] [address] CKD (chronic kidney disease) stage 4, GFR [...] this encounter Progress Notes * Mekhi Hernandez, COLLAR FELLER - 06/27/2021 2:00 PM EST Nephrology/Hypertension Clinic Follow-up Note [id number] ID: 66 y.o.year-old male for follow up [...] work day. 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 Uses NSAIDs very [...] Negative mcL Appearance UA Clear Clear Spec [place] UA 1.018 1.005 - 1.030 Color UA [...] worsening renal function discussed. No clinicalindication for RECOVERY ADVOCATE at this time. Will check Vit D and recheck BMP in 1 month at his local lab. HTN - BP well controlled on current medications. >the total time spent [id number] AND total time the provider spent counseling [...] EST Clinical Support Solid Organ Transplant at [place] [phone] 06/19/2024 2:00 PM EST Office [place] [address] Pepe Horton MD [facility] [place] [address] 08/10/2024 10:00 AM EDT Laboratory Appointment Lab [address] [place] [address] 08/10/2024 11:20 AM EDT Office Visit Nephrology Hypertension at [place] [address] Jovani Richardson MD [facility] [place] [address] A, Nurse Clinician None 08/20/2024 7:30 AM EDT Hospital Encounter Gastroenterology at [place] [phone] Lawrence Gar MD [facility] [place] [address] 08/20/2024 7:30 AM EDT - 08/20/2024 8:15 AM EDT Surgery Gastroenterology at [place] [phone] Lawrence Gar MD [facility] [place] [address] EGD, UPPER GI ENDOSCOPY (WRVU 2.09) 11/17/2024 4:20 PM EDT Office [place] [address] Lawrence Gar MD [facility] [place] [address] Scheduled Procedures Name Priority Associated Diagnoses Date/Ti me EGD, UPPER GI ENDOSCOPY (WRVU 2.09) Sharma's esophagus with high grade dysplasia 08/20/2024 7:30 AM EDT documented as of this encounter Results * (ABNORMAL) PTH (06/27/2021 1:21 PM EST) Parathyroid Hormone 98(H) 15 - 65 pg/mL [facility] Blood 06/27/2021 1:21 PM EST 06/27/2021 1:27 PM EST Narrative Resulting Agency Comment Spec In Lab Mekhi L Mary COLLAR FELLER CHEMISTRY ORDERAB LES Performing Organization Address City/[facility]/ZIP Co de Phone Number [facility] [place] [address] * Phosphorus (06/27/2021 1:21 PM EST) Phosphorus 3.0 2.5 - 4.5 mg/dL [facility] Blood 06/27/2021 1:21 PM EST 06/27/2021 1:28 PM EST Narrative Resulting Agency Comment Spec In Lab Mekhi L Mary COLLAR FELLER CHEMISTRY ORDERAB LES [facility] [place] [address] * Albumin Level (06/27/2021 1:21 PM EST) Albumin 4.5 3.2 - 5.2 g/dL [facility] Blood 06/27/2021 1:21 PM EST 06/27/2021 1:28 PM EST Narrative Resulting Agency Comment Spec In Lab Mekhi Hernandez COLLAR FELLER CHEMISTRY ORDERAB LES [facility] [place] [address] * (ABNORMAL) Basic Metabolic Panel (non-fasting) (06/27/2021 1:21 PM EST) Glucose 101 65 - 199 mg/dL [facility] Comment:Diabetes: >=200 mg/d L plus symptoms Blood Urea Nitrogen 43(H) 10 - 20 mg/dL [facility] Creatinine 2.62(H) 0.80 - 1.50 mg/dL [facility] Sodium 139 135 - 145 mmol/L [facility] Potassium 4.4 3.5 - 5.0 mmol/L [facility] Comment: Please note: ??Patients with WBC >100,000 may have falsely elevated Potassium levels. ??For accurate Potassium quantification in these patients send serum separator tube (gold top) for subsequent determinations. ??Contact the Clinical Chemistry Laboratory if there are any questions. Chloride 109(H) 98 - 107 mmol/L [facility] Carbon Dioxide 17(L) 22 - 31 mmol/L [facility] Anion Gap 13 5 - 15 mmol/L [facility] Calcium 9.2 8.5 - 10.5 mg/dL [facility] Est Glomerular Filtration Rate 24(L) >=60 mL/min/1. 73 m?? [facility] Comment: This patient? s [...] Agency Comment Spec In Lab Mekhi Hernandez COLLAR FELLER CHEMISTRY ORDERAB LES Performing Organization Address City/[facility]/ZIP Co de Phone Number [facility] [place] [address] * (ABNORMAL) Urinalysis without microscopic (06/27/2021 1:19 PM EST) Glucose, Urine Dipstick Negative Negative mg/dL [facility] Protein, Urine Dipstick 100(A) Negative mg/dL [facility] Bilirubin, Urine Dipstick Negative Negative mg/dL [facility] Comment: Clinical correlation required for positive Urine Bilirubin results as false positive may occur with some drugs and drug related products. If a false positive is suspected a serum total bilirubin should be considered if clinically indicated. Urobilinogen, Urine Dipstick Normal Normal mg/dL [facility] pH, Urn (dipstick) 5.5 5.0 - 8.0 [facility] Blood, Urine Dipstick Negative Negative mg/dL [facility] Ketone, Urine Dipstick Trace(A) Negative mg/dL [facility] Nitrite, Urine Dipstick Negative Negative [facility] Leukocytes, Urine Dipstick Negative Negative mcL [facility] Appearance, Urine Dipstick Clear Clear [facility] Specific [place] Urine Automated 1.018 1.005 - 1.030 [facility] Color, Urine Dipstick Yellow Yellow [facility] Urine 06/27/2021 1:19 PM EST 06/27/2021 1:30 PM EST Narrative Resulting Agency Comment Spec In Lab Mekhinito Hernandez COLLAR FELLER URINE ORDERABLES Performing Organization Address City/[facility]/ZIP Co de Phone Number [facility] [place] [address] * (ABNORMAL) Protein/Creatinine Ratio, urine (06/27/2021 1:19 PM EST) Creatinine, Urine 147 mg/dL [facility] Protein, Urine 107(H) 0 - 12 mg/dL [facility] Protein / Creatinine Ratio, Urine 0.7 ratio [facility] Urine 06/27/2021 1:19 PM EST 06/27/2021 1:30 PM EST Narrative Resulting Agency Comment Spec In Lab Mekhi Hernandez APRN URINE ORDERABLES [facility] [place] [address] documented in this encounter Visit Diagnoses Diagnosis CKD (chronic kidney disease) stage 4, GFR 15-29 ml/min Chronic kidney disease, Stage IV (severe) Hypertension, unspecified type Sharma's esophagus with high grade dysplasia Sharma's esophagus documented in this encounter Care Teams Appraiser Relationship Specialty Start Date End Date Jovani Wharton DO [address] [place] [address] PCP - General Family Medicine 10/18/16 06/18/22 documented as of this encounter
--- OUTSIDE RECORDS SUMMARY | 2024-06-08 12:48 | XMS_ITS | Encounter Summary ---
Author Organization [facility] Address [facility] [place] [address] Care Team Providers Care Packaging Materials Inspector Name Role Phone DioJovani franks Primary Care Provider Reason for Visit * Consultation (Routine) - Closed Specialty Diagnoses / Procedures Referred By Devaughn bobo Referred To Contact Dermatology Diagnoses SCC (squamous cell carcinoma) Deb Hamlin MD [facility] DR TOM [place] [address] Dominguez Lopez MD [facility] DR TOM [place] [address] Referral ID Status Reason Start Date Expiration Date V isits Requested Visits Authorized [id number] Closed Consult, Test & Treat 04/29/2020 04/29/2021 1 1 Encounter Details Date Type Department Care Team (Latest Contact Info) Description 06/14/2020 11:00 AM EST Procedure visit Dermatology at [facility] [address] [place] [address] Dominguez Lopez MD [facility] DR TOM [place] [address] Squamous cell carcinoma of skin of helix [...] until your sutures are removed. 5. Some rn night may need to be delayed or delegated [...] as often as is recommended by your biotechnician, for new skin cancers. This is once [...] it. If after hours, please call the thermo cementing folder operator or [phone] and ask for the biotechnician on-call. If you have any non-urgent questions or concerns, please feel free to call my office or contact me through our patient portal, [email or web address], at [email or web address] How to contact us during business hours Dermatology at [facility]: Mohs scheduling or Mohs follow-up appointments: [phone] documented in this encounter Progress Notes * [...] and follow up with his or her biotechnician or other skin provider. 6. Discussed avoiding [...] signed by: Dominguez Lopez Dermatology [facility] * Dominguez Lopez MD - 06/14/2020 11:00 AM EST Mohs micrographic Surgery Operative Report Patient name: Mathew Mendez : 1955 Date: 06/15/2020 Staff Surgeon: Dominguez Lopez MD PhD Nursing/Auto Body Mechanic Apprentice(s): Milvia Mancilla RN, Mary LoyaReyes COLEN, Serina Taylor CMA, Alan Jaffe CMA, Analia Mendoza CMA Radiologic Tech (s): Elena Barriga Pre-operative diagnosis: Squamous Cell [...] The site was confirmed with the patient/authorized medical sales representative/referring physician and/or a photograph form [...] Mendez Staff Surgeon: Dominguez Lopez MD PhD Nail Machine Operator(s): same as above education administrative assistant: Serina Taylor CMA Date: 06/15/2020 Clinical Diagnosis: skin and soft tissue defect status post Mohs micrographic surgery Location/Site: Right mid helix Indication: repair of wound with alevism of anatomy/function Defect size to be repaired: [...] and Dermatologic Oncology Department of Dermatology [address] [place] [address] Note initiated by Serina Taylor CMA. Serina Taylor CMA has performed the documentation for this encounter in the presence of and acting as a scribe for Dr. Hugo Suarez performed the above scribed service and agree with the accuracy of the documentation in this encounter. Reviewed and signed by: Dominguez Lopez Dermatology [facility] documented in this encounter Plan of Treatment Upcoming Encounters Date Type Department Care Team (Latest Contact Info) Description 06/19/2024 1:40 PM EST Clinical Support [place] [address] 06/19/2024 2:00 PM EST Office Visit [place] [address] Pepe Horton MD [facility] [place] [address] 08/10/2024 10:00 AM EDT Laboratory Appointment Lab [address] [address] 08/10/2024 11:20 AM EDT Office Visit Nephrology Hypertension at [place] [phone] Jovani Richardson MD [facility] [place] [place] [address] A, Nurse Clinician None 08/20/2024 7:30 AM EDT Hospital Encounter Gastroenterology at [place] [phone] Lawrence Gar MD [facility] [place] [address] 08/20/2024 7:30 AM EDT - 08/20/2024 8:15 AM EDT Surgery [place] [address] Lawrence Gar MD [facility] [place] [address] EGD, UPPER GI ENDOSCOPY (WRVU 2.09) 11/17/2024 4:20 PM EDT Office Visit [place] [address] Lawrence Gar MD [facility] [place] [address] Scheduled Procedures Name Priority Associated Diagnoses Date/Ti me EGD, UPPER GI ENDOSCOPY (WRVU 2.09) Sharma's esophagus with high grade dysplasia 08/20/2024 7:30 AM EDT documented as of this encounter Visit Diagnoses Diagnosis 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
--- OUTSIDE RECORDS SUMMARY | 2024-06-08 12:48 | XMS_ITS | Encounter Summary ---
Author Organization [facility] Address [facility] [place] [address] Care Team Providers Care Transportation Planning Technician Name Role Phone DioJovani franks Primary Care Provider Encounter Details Date Type Department Care Team (Late st Contact Info) Description 01/14/2020 11:00 AM EDT Office Visit Dermatology at [facility] [address] [place] [address] Deb Hamlin MD [facility] [place] [address] Actinic keratoses; History of SCC (squamous cell [...] No ?? Other No ? 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 Medications: allopurinoL, amLODIPine, augmented [...] ill defined gritty papules on the right catholic x3, left cheek x2, left forehead x1, [...] and signed by: Deb Hamlin MD Dermatology [facility] documented in this encounter Plan of Treatment Upcoming Encounters Date Type Department Care Team (Latest Contact Info) Description 06/19/2024 1:40 PM EST Clinical Support [place] [address] 06/19/2024 2:00 PM EST Office [place] [address] Pepe Horton MD [facility] [place] [address] 08/10/2024 10:00 AM EDT Laboratory Appointment Lab [address] [place] [address] 08/10/2024 11:20 AM EDT Office Visit [place] [address] Jovani Richardson MD [facility] [place] [address] A, Nurse Clinician None 08/20/2024 7:30 AM EDT Hospital Encounter Gastroenterology at [place] [phone] Lawrence Gar MD [facility] [place] [address] 08/20/2024 7:30 AM EDT - 08/20/2024 8:15 AM EDT Surgery Gastroenterology at [place] [phone] Lawrence Gar MD [facility] [place] [address] EGD, UPPER GI ENDOSCOPY (WRVU 2.09) 11/17/2024 4:20 PM EDT Office [place] [address] Lawrence Gar MD [facility] [place] [address] Scheduled Procedures Name Priority Associated Diagnoses Date/Ti [...] esophagus documented in this encounter Care Teams Transportation Planning Technician Relationship Specialty Start Date End Date Jovani Wharton DO [address] [place] [address] PCP - General Family Medicine 10/18/16 06/18/22 documented as of this encounter
--- OUTSIDE RECORDS SUMMARY | 2024-06-08 12:49 | XMS_ITS | Encounter Summary ---
Author Organization [facility] Address [facility] [place] [address] Care Team Providers Care Guide Dog Trainer Name Role Phone Jovani Wharton DO Primary Care Provider Reason for Visit * Consultation (Routine) - Closed Specialty Diagnoses / Procedures Referred By Devaughn bobo Referred To Contact Nephrology Diagnoses Chronic kidney disease stage 3 CVD54-54 ml/min Jovani Wharton DO [address] [place] [address] Jorge Gonzales MD [facility] [place] [address] Referral ID Status Reason Start Date Expiration Date V isits Requested Visits Authorized [id number] Closed Consult, Test & Treat Connection Center 06/12/2017 06/12/2018 1 1 Encounter Details Date Type Department Care Team (Latest Contact Info) Description 07/10/2017 11:00 AM EST Office Visit Nephrology [place] [address] Jogre Gonzales MD [facility] [place] [address] Anemia of chronic renal failure, stage 3 [...] EST Clinical Support [place] [address] 06/19/2024 2:00 PM EST Office Visit Solid Organ Transplant at [place] [phone] Pepe Horton MD [facility] [place] [address] 08/10/2024 10:00 AM EDT Laboratory Appointment Lab [address] [place] [address] 08/10/2024 11:20 AM EDT Office Visit Nephrology [place] [address] Jovani Richardson MD [facility] [place] [address] A, Nurse Clinician None 08/20/2024 7:30 AM EDT Hospital Encounter Gastroenterology at [place] [phone] Lawrence Gar MD [facility] [place] [address] 08/20/2024 7:30 AM EDT - 08/20/2024 8:15 AM EDT Surgery [place] [address] Lawrence Gar MD [facility] [place] [address] EGD, UPPER GI ENDOSCOPY (WRVU 2.09) 11/17/2024 4:20 PM EDT Office [place] [address] Lawrence Gar MD [facility] [place] [address] Scheduled Procedures Name Priority Associated Diagnoses Date/Ti [...] EST) Glucose 98 65 - 199 mg/dL [facility] Comment:Diabetes: >=200 mg/d L plus symptoms Blood Urea Nitrogen 32(H) 10 - 20 mg/dL [facility] Creatinine 1.48 0.80 - 1.50 mg/dL [facility] Sodium 140 135 - 145 mmol/L [facility] Potassium 4.3 3.5 - 5.0 mmol/L [facility] Comment: Please note: ??Patients with WBC >100,000 may have falsely elevated Potassium levels. ??For accurate Potassium quantification in these patients send serum separator tube (gold top) for subsequent determinations. ??Contact the Clinical Chemistry Laboratory if there are any questions. Chloride 102 98 - 107 mmol/L [facility] Carbon Dioxide 23 22 - 31 mmol/L [facility] Anion Gap 15 5 - 15 mmol/L [facility] Calcium 8.9 8.5 - 10.5 mg/dL [facility] Est Glomerular Filtration Rate 48(L) >=60 [facility] Comment: The reported eGFR should be multiplied by 1.2 for patients. The MDRD is not an appropriate measure of renal function for patients with body mass extremes or in patients with acute kidney failure. http://FlatBurger/DHnkdep http://FlatBurger/DHMCnkf Blood specimen (specimen) 07/10/2017 11:53 AM EST 07/10/2017 11:59 AM EST Narrative Resulting Agency Comment Spec In Lab Jorge Gonzales MD CHEMISTRY ORDERABLE S Performing Organization Address [facility] Co de Phone Number [facility] [place] [address] * (ABNORMAL) Protein/Creatinine Ratio, urine (07/10/2017 10:30 AM EST) Creatinine, Urine 71 mg/dL [facility] Protein, Urine 139(H) 0 - 12 mg/dL [facility] Protein / Creatinine Ratio, Urine 2.0 ratio [facility] Urine specimen (specimen) 07/10/2017 10:30 AM EST 07/10/2017 1:12 PM EST Narrative Resulting Agency Comment Spec In Lab Jorge Gonzales MD URINE ORDERABLES [facility] [place] [address] documented in this encounter Visit Diagnoses Diagnosis Anemia of chronic renal failure, stage 3 (moderate) Sharma's esophagus with high grade dysplasia Sharma's esophagus documented in this encounter Care Teams Guide Dog Trainer Relationship Specialty Start Date End Date Jovani Wharton DO [address] [place] [address] PCP - General Family Medicine 10/18/16 06/18/22 documented as of this encounter
--- OUTSIDE RECORDS SUMMARY | 2024-06-08 12:49 | XMS_ITS | Encounter Summary ---
Author Organization [facility] Address [facility] [place] [place] [address] Care Team Providers Care Log Carrier Operator Name Role Phone DioJovani franks Primary Care Provider Encounter Details Date Type Department Care Team (Latest Contact Info) Description 10/18/2016 8:30 AM EDT Office Visit Ne[place] [address] Jorge Gonzales MD [facility] [place] [address] CKD (chronic kidney disease) stage 3, GFR [...] EST Clinical Support [place] [address] 06/19/2024 2:00 PM EST Office Visit [place] [address] Pepe Horton MD [facility] [place] [address] 08/10/2024 10:00 AM EDT Laboratory Appointment Lab [address] [place] [address] 08/10/2024 11:20 AM EDT Office Visit [place] [address] Jovani Richardson MD [facility] [place] [address] A, Nurse Clinician None 08/20/2024 7:30 AM EDT Hospital Encounter [place] [address] Lawrence Gar MD [facility] [place] [address] 08/20/2024 7:30 AM EDT - 08/20/2024 8:15 AM EDT Surgery [place] [address] Lawrence Gar MD [facility] [place] [address] EGD, UPPER GI ENDOSCOPY (WRVU 2.09) 11/17/2024 4:20 PM EDT Office [place] [address] Lawrence Gar MD [facility] [place] [address] Scheduled Procedures Name Priority Associated [...] 9:55 AM EDT) Neutrophil % 65.3 % [facility] Neutrophil Absolute 2.98 1.70 - 6.10 x10(3)/mc L [facility] Lymph % 17.9 % [facility] Lymphocytes Abs 0.8(L) 0.9 - 3.2 x10(3)/mc L [facility] Monocyte % 12.0 % [facility] Monocyte Abs 0.6 0.3 - 0.9 x10(3)/mc L [facility] Eos % 3.5 % [facility] Eosinophils Abs 0.2 0.0 - 0.4 x10(3)/mc L [facility] Basophil % 1.1 % [facility] Baso Absolute 0.0 0.0 - 0.1 x10(3)/mc L [facility] Immature Gran % 0.20 % [facility] Comment: Immature granulocytes(IG's)percentage and absolute count will include metamyelocytes, myelocytes, and promyelocytes. Blood smears from CBCs yielding IG's will be scanned manually for concordance. If this scan disagrees with the automated IG or if promyelocytes are noted, a manual differential will be performed. Immature Gran Absolute 0.01 0.00 - 0.04 x10(3)/mc L [facility] Blood specimen (specimen) 10/18/2016 9:55 AM EDT 10/18/2016 10:07 AM EDT Narrative Resulting Agency Comment Spec In Lab Jorge Gonzales MD HEMATOLOGY ORDERABL ES [facility] [place] [address] * (ABNORMAL) Hemogram (10/18/2016 9:55 AM EDT) White Blood Cell 4.6 4.0 - 9.5 x10(3)/[facility] Red Blood Cell 3.78(L) 4.58 - 5.54 x10(6)/[facility] Hemoglobin 11.7(L) 13.7 - 16.5 gm/dL [facility] Hematocrit 34.0(L) 40.5 - 48.5 % [facility] Mean Cell Volume 89.9 82.9 - 93.1 fL [facility] Mean Cell Hemoglobin 31.0 27.5 - 32.1 pg [facility] Mean Cell Hemoglobin Concentration 34.4 32.0 - 35.7 gm/dL [facility] Platelet 192 145 - 357 x10(3)/[facility] RDW Standard Deviation 40.0 36.0 - 45.0 [facility] RDW coefficient of variation 12.3 11.4 - 13.8 % [facility] Mean Platelet Volume 11.2 7.6 - 12.9 fL [facility] NRBC% auto 0.0 % [facility] NRBC Absolute 0.000 0.000 - 0.000 x10(3)/[facility] Blood specimen (specimen) 10/18/2016 9:55 AM EDT 10/18/2016 10:07 AM EDT Narrative Resulting Agency Comment Spec In Lab Jorge Gonzales MD HEMATOLOGY ORDERABL ES [facility] [place] [address] * PTH (10/18/2016 9:55 AM EDT) Pathologist [facility] Parathyroid Hormone 51 15 - 65 pg/mL [facility] Blood specimen (specimen) 10/18/2016 9:55 AM EDT 10/18/2016 10:06 AM EDT Narrative Resulting Agency Comment Spec In Lab Jorge Gonzales MD CHEMISTRY ORDERABLE S Performing Organization Address [facility]/ZIP Co de Phone Number [facility] [place] [address] * Protein Electrophoresis, serum (10/18/2016 9:55 AM EDT) Pathologist [facility] Total Prot Electrophoresis 7.0 6.1 - 8.0 gm/dL [facility] Albumin Electrophoresis 4.59 3.60 - 6.00 gm/dL [facility] Alpha 1 Globulin 0.18 0.10 - 0.30 gm/dL [facility] Alpha 2 Globulin 0.76 0.40 - 0.90 gm/dL [facility] Beta Globulin 0.69 0.50 - 1.00 gm/dL [facility] Gamma Globulin 0.78 0.50 - 1.30 gm/dL [facility] M1 Band None Detected [facility] Blood specimen (specimen) 10/18/2016 9:55 AM EDT 10/18/2016 10:07 AM EDT Narrative Resulting Agency Comment Spec In Lab Jorge Gonzales MD CHEMISTRY ORDERABLE S [facility] [place] [address] * (ABNORMAL) Basic Metabolic Panel (non-fasting) (10/18/2016 9:55 AM EDT) Glucose 90 65 - 199 mg/dL [facility] Comment:Diabetes: >=200 mg/d L plus symptoms Blood Urea Nitrogen 39(H) 10 - 20 mg/dL [facility] Creatinine 1.86(H) 0.80 - 1.50 mg/dL [facility] Comment: Please note that the pediatric reference intervals supplied above were not validated at [facility]. Results from pediatric patients should be interpreted in conjunction to the patient's age, height and muscle mass. Sodium 135 135 - 145 mmol/L [facility] Potassium 4.2 3.5 - 5.0 mmol/L [facility] Comment: Please note: ??Patients with WBC >100,000 may have falsely elevated Potassium levels. ??For accurate Potassium quantification in these patients send serum separator tube (gold top) for subsequent determinations. ??Contact the Clinical Chemistry Laboratory if there are any questions. Chloride 97(L) 98 - 107 mmol/L [facility] Carbon Dioxide 21(L) 22 - 31 mmol/L [facility] Anion Gap 17(H) 5 - 15 mmol/L [facility] Calcium 9.0 8.5 - 10.5 mg/dL [facility] Est Glomerular Filtration Rate 37(L) >=60 [facility] Comment: This estimated GFR (eGFR) [...] the following links into your internet browser. [email or web address] Blood specimen (specimen) 10/18/2016 9:55 AM EDT 10/18/2016 10:07 AM EDT Narrative Resulting Agency Comment Spec In Lab Jorge Gonzales MD CHEMISTRY ORDERABLE S Performing Organization Address City/[facility]/ZIP Co de Phone Number [facility] [place] [address] * (ABNORMAL) Protein/Creatinine Ratio, urine (10/18/2016 8:26 AM EDT) Creatinine, Urine 70 mg/dL [facility] Protein, Urine 20(H) 0 - 12 mg/dL [facility] Protein / Creatinine Ratio, Urine 0.3 ratio [facility] Urine specimen (specimen) 10/18/2016 8:26 AM EDT 10/18/2016 11:35 AM EDT Narrative Resulting Agency Comment Spec In Lab Jorge Gonzales MD URINE ORDERABLES Performing Organization Address [facility] Co de Phone Number [facility] [place] [address] * (ABNORMAL) Protein Electrophoresis, urine, random (10/18/2016 8:26 AM EDT) Protein, Urine 20(H) 0 - 12 mg/dL [facility] U Albumin 76 % total [facility] Globulin, Urine 24 % total [facility] M1 Band, Urine None Detected [facility] UPEP Comments See Note [facility] Comment: There is no evidence of clonal free light chains in this patient's urine sample. Urine specimen (specimen) 10/18/2016 8:26 AM EDT 10/18/2016 11:35 AM EDT Narrative Resulting Agency Comment Spec In Lab Jorge Gonzales MD URINE ORDERABLES Performing Organization Address City/[facility] Co de Phone Number [facility] [place] [address] documented in this encounter Visit Diagnoses Diagnosis CKD (chronic kidney disease) stage 3, GFR 30-59 ml/min- Primary Chronic kidney disease, Stage III (moderate) Sharma's esophagus with high grade dysplasia Sharma's esophagus documented in this encounter Care Teams Log Carrier Operator Relationship Specialty Start Date End Date Dio, Jovani, DO [address] [place] [address] PCP - General Family Medicine 10/18/16 06/18/22 documented as of this encounter
--- OUTSIDE RECORDS SUMMARY | 2024-06-08 12:49 | XMS_ITS | Encounter Summary ---
Author Organization [facility] [place] [address] Care Team Providers Care Patient Support Partner Name Role Phone Slade Tran MD Primary Care Provider [phone] Encounter Details Date Type Department Care Team (Late st Contact Info) Description 05/03/2004 Orders [place] [address] Balbir Conroy MD Social History Tobacco Use Types Packs/Day Years [...] EST Clinical Support [place] [address] 06/19/2024 2:00 PM EST Office [place] [address] Pepe Horton MD [facility] [place] [address] 08/10/2024 10:00 AM EDT Laboratory Appointment Lab [address] [place] [address] 08/10/2024 11:20 AM EDT Office Visit Nephrology Hypertension at [place] [phone] Jovani Richardson MD [facility] [place] [address] A, Nurse Clinician None 08/20/2024 7:30 AM EDT Hospital Encounter Gastroenterology at [address] Lawrence Gar MD [facility] [place] [address] 08/20/2024 7:30 AM EDT - 08/20/2024 8:15 AM EDT Surgery Gastroenterology at [place] [phone] Lawrence Gar MD [facility] [place] [address] EGD, UPPER GI ENDOSCOPY (WRVU 2.09) 11/17/2024 4:20 PM EDT Office Visit Gastroenterology at [place] [phone] Lawrence Gar MD [facility] [place] [address] Scheduled Procedures Name Priority Associated Diagnoses Date/Ti me EGD, UPPER GI ENDOSCOPY (WRVU 2.09) Sharma's esophagus with high grade dysplasia 08/20/2024 7:30 AM EDT documented as of this encounter Procedures Procedure Name Priority Date/Time Associated Diagnosis Comments SURGICAL PATHOLOGY REPORT Routine 05/03/2004 8:08 PM EST documented in this encounter Results * Surgical Pathology Report (05/03/2004 8:08 PM EST) Surgical Pathology Report [id number] ? Location: [facility]; 0411; A The signing pathologist has (i) examined [...] Conroy MD PATHOLOGY/CYTOLOGY ORDERABLES Performing Organization Address City/State/[facility] Phone Number [facility] documented in this encounter Visit Diagnoses Not on filedocumented in this encounter Care Teams Patient Support Partner Relationship Specialty Start Date End Date Slade Tran MD PCP - General Family Medicine 06/19/22 11/05/23 documented as of this encounter
--- OUTSIDE RECORDS SUMMARY | 2024-06-08 12:49 | XMS_ITS | Encounter Summary ---
Author Organization [facility] [place] [address] Care Team Providers Care Automation Machine Builder Name Role Phone Slade Tran MD Primary Care Provider [phone] Encounter Details Date Type Department Care Team (Late st Contact Info) Description 08/04/2003 Orders [place] [address] Balbir Conroy MD Social History Tobacco Use [...] EST Clinical Support [place] [address] 06/19/2024 2:00 PM EST Office Visit [place] [address] Pepe Horotn MD [facility] [place] [address] 08/10/2024 10:00 AM EDT Laboratory Appointment Lab [address] [place] [address] 08/10/2024 11:20 AM EDT Office Visit [place] [address] Jovani Richardson MD [facility] [place] [address] A, Nurse Clinician None 08/20/2024 7:30 AM EDT Hospital Encounter Gastroenterology at [address] Lawrence Gar MD [facility] [place] [address] 08/20/2024 7:30 AM EDT - 08/20/2024 8:15 AM EDT Surgery Gastroenterology at [place] [phone] Lawrence Gar MD [facility] [place] [address] EGD, UPPER GI ENDOSCOPY (WRVU 2.09) 11/17/2024 4:20 PM EDT Office Visit Gastroenterology at [place] [phone] Lawrence Gar MD [facility] [place] [address] Scheduled Procedures Name Priority Associated Diagnoses Date/Ti me EGD, UPPER GI ENDOSCOPY (WRVU 2.09) Sharma's esophagus with high grade dysplasia 08/20/2024 7:30 AM EDT documented as of this encounter Procedures Procedure Name Priority Date/Time Associated Diagnosis Comments SURGICAL PATHOLOGY REPORT Routine 08/05/2003 3:31 PM EST documented in this encounter Results * Surgical Pathology Report (08/05/2003 3:31 PM EST) Surgical Pathology Report [id number] ? Location: [facility]; 0315; A The signing pathologist has (i) examined [...] perforation ?is identified grossly. Sections/Processing : ??(1-2) patient representative terminal margin; ?(3-4) mucosa to hemorrhagic [...] the ?area of perforation. Sections/Processing : ??(1-2) patient representative section of terminal ?margins; (3) perforation; [...] ?Terminal resection margins are histologically viable. CR-0 03/16/04 [facility] 08/10/03 Verified by: ? Bertin Matta MD, PhD ?Pathologist ?(Electronic Signature) The attending pathologist whose signature appears on this report has reviewed all diagnostic slides and has edited the gross and/or microscopic portion of the report in rendering the final pathologic diagnosis. [facility] 08/05/2003 3:31 PM EST Balbir Conroy MD PATHOLOGY/CYTOLOGY ORDERABLES Performing Organization Address City/State/[facility] Co de Phone Number [facility] documented in this encounter Visit Diagnoses Not on filedocumented in this encounter Care Teams Automation Machine Builder Relationship Specialty Start Date End Date Slade Tran MD PCP - General Family Medicine 06/19/22 11/05/23 documented as of this encounter
--- OUTSIDE RECORDS SUMMARY | 2024-06-08 12:49 | XMS_ITS ---
Author Organization Unknown ALLERGIES AND ADVERSE REACTIONS No information ASSESSMENT No information CHIEF COMPLAINT No information MEDICATIONS No information OBJECTIVE DATA No information PHYSICAL EXAMINATION No information TREATMENT PLAN Planned Care Start Date Provider Encounter for Check-up [phone] PROBLEMS No information RESULTS No information REVIEW OF SYSTEMS No information SUBJECTIVE DATA No information VITAL SIGNS No information
--- OUTSIDE RECORDS SUMMARY | 2024-06-08 12:49 | XMS_ITS ---
Author Organization [facility] [place] [address] Care Team Providers Care Supervisor Heavy Equipment Name Role Phone Govind Mendes Primary Care Provider + Transplant Episode Kidney Candidate [facility] ([place], [place]) - [facility] Referred on 05/06/2024 Marked as Active on 05/06/2024 Kidney CoordinatorCristin Perez RN Phone: N/A Fax: N/A Email: N/A Scores Score Value Updated Exceptions/Reas ons CPRA Not available EPTS (Calc) 53 06/08/2024 Care Team Name Role Phone Fax Email Cristin Perez RN Kidney Coordinator N/A N/A N/A Dayanna Delaney Gauge Machine Operator N/A N/A N/A Jovani Richardson MD Referring Physician [phone] [email or web address] Pre-Transplant Referred: 05/06/2024 Appointments (05/08/2024 - 07/09/2024) When With Visit Type Description 06/19/2024 Transplant Nurse Visit 06/19/2024 Transplant - Colten Horton Visit
== END 2024-06-08 12:39 | disposition home or self-care (01) ==
LOC: LBO 12:40
PROVIDERS: PCP Student in an Organized Health Care Education/Training Program; Visit Provider Internal Medicine Nephrology
DX: N18.4 Chronic kidney disease, stage 4 (severe) (principal); E87.5 Hyperkalemia
CPT/HCPCS: 36415; 80048; 82040; 85025

== ENCOUNTER 2024-06-11 09:06 | Outpatient (CLI) | payer MEDICARE, SELFPAY ==
[2024-06-11 09:34] LABS: Abs Immature Grans 0.04 10^3/uL (0.0-0.06); Absolute Basophil Count 0.05 10^3/uL (0.0-0.2); Absolute Eosinophil Count 0.15 10^3/uL (0.0-0.7); Absolute Lymphocyte Count 0.55 10^3/uL (1.2-3.4); Absolute Monocyte Count 0.77 10^3/uL (0.1-0.8); Absolute Neutrophil Count 4.13 10^3/uL (1.2-6.7); Basophils % 0.9 %; Eosinophils % 2.6 %; HGB 8.4 g/dL (13.5-17.5); Immature Grans % 0.7 %; Lymphocytes % 9.7 %; MCH 31.8 pg (27.0-33.0); MCHC 32.3 % (32.0-36.0); MCV 99 fL (80-95); MPV 9.3 fL (8.0-11.0); Monocytes % 13.5 %; Neutrophils % 72.6 %; Platelet Count 227 10^3/uL (130-400); RBC 2.64 10^6/uL (4.36-5.78); RDW 12.6 % (11.8-14.1); RDW-SD 45.8 fL; WBC 5.69 10^3/uL (4.4-10.8)
[2024-06-11 09:50] LABS: Diff Comment RBC Morph Reviewed
[2024-06-11 09:51] LABS: Microcytosis 1+; Polychromasia Present
[2024-06-11 09:59] LABS: Calcium 8.4 mg/dL (8.5-10.1); Chloride 106 mmol/L (98-107); Estimated GFR 9.43 (mL/min/1.73m2); Glucose 111 mg/dL (74-106); Potassium 5.3 mmol/L (3.5-5.1); Sodium 139 mmol/L (136-145)
[2024-06-11 10:05] LABS: BUN 81 mg/dL (7-18)
== END 2024-06-11 09:07 | disposition home or self-care (01) ==
LOC: LBO 09:06
PROVIDERS: PCP Student in an Organized Health Care Education/Training Program; Visit Provider Internal Medicine Nephrology
DX: D64.9 Anemia, unspecified (principal); N18.4 Chronic kidney disease, stage 4 (severe); I10 Essential (primary) hypertension; D63.1 Anemia in chronic kidney disease
CPT/HCPCS: 36415; 80048; 85025

== ENCOUNTER 2024-09-09 02:06 | Outpatient (RCR) | payer MEDICARE, SELFPAY ==
[2024-09-09 13:25] LABS: HGB 9.3 g/dL (13.5-17.5)
[2024-09-09] MEDS: Darbepoetin 25 MCG SYR SC (13:37)
== END 2024-09-23 23:59 | disposition home or self-care (01) ==
LOC: INF 02:06
PROVIDERS: PCP Student in an Organized Health Care Education/Training Program; Visit Provider Family Medicine
DX: N18.5 Chronic kidney disease, stage 5 (principal); D63.1 Anemia in chronic kidney disease
CPT/HCPCS: 36415; 96372; 85014; 85018; J0881

== ENCOUNTER 2024-09-22 00:02 | Outpatient (CLI) | payer MEDICARE, SELFPAY ==
--- NOTE | 2024-09-22 08:10 | DI.MRI_ITS ---
Exam(s) MR ANGIO BRAIN WO CLINICAL HISTORY: ICD 10 H53.123 transient vision loss, bilateral, consistent with TIA. TECHNIQUE: 3D lvku-yf-[id number] study was performed without contrast. COMPARISON: Brain MRI 22 September 2024 FINDINGS: Carotid Arteries: Petrous: Normal. Cavernous: Normal. Cerebral: Normal. Middle Cerebral Arteries: Right: No aneurysm or significant stenosis. Left: No aneurysm or significant stenosis. Anterior Cerebral Arteries: Right: No aneurysm or significant stenosis. Left: No aneurysm or significant stenosis. Posterior cerebral arteries: Right: No aneurysm or significant stenosis Left: No aneurysm or significant stenosis Vertebral Arteries: Right: No aneurysm or significant stenosis. No dissection. Left: No aneurysm or significant stenosis. No dissection.. Basilar Artery: No aneurysm or significant stenosis. Proximal portion is tortuous. Small Vessels: No evidence of beading. IMPRESSION: Unremarkable MRA examination of the [place]. DATA REPOSITORY:
[2024-09-22] MEDS: Gadoterate meglumine 20 ML VIAL IVP (08:42)
[2024-09-22] MEDS: Normal Saline - Diluent 50 ML VIAL IJ (08:43)
--- NOTE | 2024-09-22 09:30 | DI.MRI_ITS ---
Exam(s) MR BRAIN ORBIT FACE NECK WO/W EXAM: MR BRAIN ORBIT FACE NECK WO/W CLINICAL HISTORY: ICD 10 H53.123 transient vision loss, bilateral, consistent with TIA TECHNIQUE: Multiplanar multisequence MRI of the brain and orbits was performed. Postcontrast imaging. 14 mL Dotarem IV. COMPARISON: CT CT HEAD CERVICAL SPINE WO from 05/03/2020 MR MR ANGIO BRAIN WO from 09/22/2024 FINDINGS: MRI of the brain: Exam is limited by motion. VENTRICLES AND EXTRA AXIAL SPACES: Normal in size and morphology for the patient's age. HEMORRHAGE: None. CEREBRAL PARENCHYMA: No focus of restricted diffusion to suggest acute infarct. No space-occupying le roger identified. Mild atrophy. Mild white matter changes of microvascular disease. MIDLINE SHIFT: None. BRAINSTEM/CEREBELLUM: Normal. CALVARIUM: Normal. VISUALIZED PARANASAL SINUSES/MASTOIDS: Clear. ORBITS: The anterior and posterior chambers of the globes are intact. The retrobulbar fat is unremark able. Extraocular muscles are unremarkable. OPTIC NERVES: The intracranial and extracranial portions of the optic nerves are within normal limits . Optic chiasm is within normal limits. No MRI evidence of optic neuritis identified. SOFT TISSUES: The superior opthalmic veins are unremarkable. Remaining soft tissues are unremarkable. IMPRESSION: Unremarkable MRI of the brain and orbits . No evidence of acute infarct. No orbital abnormality is i dentified DATA REPOSITORY:
--- NOTE | 2024-09-22 10:00 | DI.MRI_ITS ---
Exam(s) MR ANGIO NECK WO/W EXAM: MR ANGIO NECK WO/W CLINICAL HISTORY: ICD 10 H53.123 transient vision loss, bilateral, consistent with TIA. TECHNIQUE: 2D and 3D [id number] MRA of the Neck was performed. COMPARISON: MR MR BRAIN ORBIT FACE NECK WO/W from 09/22/2024 FINDINGS: The 2D dkzk-tj-awmmgk exam is somewhat limited by motion. Common Carotid: Right: No dissection, occlusion or significant stenosis. Left: No dissection, occlusion or significant stenosis. External Carotid: Right: No evidence of occlusion or significant stenosis. Left: No evidence of occlusion or significant stenosis. Internal Carotid: Right: No dissection, occlusion or significant stenosis. Left: No dissection, occlusion or significant stenosis. Vertebral Artery: Right: No dissection, occlusion or significant stenosis. Left: No dissection, occlusion or significant stenosis. The visualized paraspinal soft tissues are unremarkable. IMPRESSION: No evidence of dissection, occlusion or significant stenosis. DATA REPOSITORY:
== END 2024-09-22 00:22 ==
LOC: DI 00:03
PROVIDERS: PCP Student in an Organized Health Care Education/Training Program; Visit Provider Optometrist
DX: H53.123 Transient visual loss, bilateral (principal)
CPT/HCPCS: 70544; 70549; 70553; 70543

== ENCOUNTER 2024-10-07 02:36 | Outpatient (RCR) | payer MEDICARE, SELFPAY ==
[2024-10-07 13:17] LABS: HGB 8.4 g/dL (13.5-17.5)
[2024-10-07] MEDS: Darbepoetin 40 MCG SYR SC (13:33)
== END 2024-10-24 23:59 | disposition home or self-care (01) ==
LOC: INF 02:36
PROVIDERS: Internal Medicine Nephrology; PCP Student in an Organized Health Care Education/Training Program; Visit Provider Family Medicine
DX: N18.5 Chronic kidney disease, stage 5 (principal); D63.1 Anemia in chronic kidney disease
CPT/HCPCS: 36415; 96372; 85014; 85018; J0881

== ENCOUNTER 2025-03-06 11:47 | Outpatient (CLI) | payer MEDICARE, SELFPAY ==
--- NOTE | 2025-03-06 12:15 | DI.RAD_ITS ---
Exam(s) XR LUMBAR SPINE COMPLETE EXAM: XR LUMBAR SPINE COMPLETE CLINICAL HISTORY: LEFT SIDED LOW BACK PAIN WITH LEFT SIDED SCIATICA. TECHNIQUE: 2D digital imaging was performed of the lumbar spine. Five images were obtained. AP, lateral, right oblique, left oblique and L5-S1 spot views were obtained. COMPARISON: No exams were available for comparison FINDINGS: BONES: No fracture or destructive lesion. There are endplate osteophytes at several levels of the lumbar spine. There are degenerative changes of the facets at L4-5 and L5-S1. The bones are osteopenic. DISKS: There is disc space narrowing which is most marked at L4-5 and L5-S1. ALIGNMENT: Lumbar spinal alignment is within normal limits. There is a mild dextroscoliosis. No spondylolysis or spondylolisthesis. SOFT TISSUE: Atherosclerotic calcification is present. There are surgical clips in the upper abdomen.. IMPRESSION: Moderate degenerative changes in the lumbar spine. DATA REPOSITORY: RADIATION DOSE DELIVERED:
--- NOTE | 2025-03-06 13:26 | DI.VRAD_ITS ---
PROCEDURE INFORMATION: Exam: XR Lumbosacral Spine Exam date and time: 03/06/2025 12:07 PM Age: 69 years old Clinical indication: Patient in severe pain. Left sided sciatica. ; Additional info: Ap done supine, obliques, lateral, and spot lateral done upright, patient unable to lay down for images due to severe muscle spasms. TECHNIQUE: Imaging protocol: Radiologic exam of the lumbosacral spine. Views: 4 or 5 views. COMPARISON: CT RENAL COLIC WO 20/11/2021 13:25 FINDINGS: Tubes, catheters and devices: Surgical clips over the mid chest and abdomen. Bones/joints: Decreased bone mineralization. Multilevel degenerative scoliotic changes of the spine. Levoscoliosis of the thoracolumbar spine. Dextroscoliosis of the lower lumbar spine. Disc space narrowing and degenerative changes of the endplates at L2-L3, L3-L4, L4-L5, and L5-S1. Facet arthropathy at L4-L5 and L5-S1 bilaterally. Anterior wedging of T11 vertebral body. Soft tissues: Unremarkable. IMPRESSION: Multi-level degenerative scoliotic changes of the spine. Dictated and Authenticated by: Cynthia Lind MD. Orderin Blake Roldan MD
== END 2025-03-06 12:07 ==
LOC: LBN 11:50 → DI 11:54
PROVIDERS: PCP Student in an Organized Health Care Education/Training Program; Visit Provider Physician Assistant Medical
DX: M51.360 Other intervertebral disc degeneration, lumbar region with discogenic back pain only (principal)
CPT/HCPCS: 72110

== ENCOUNTER 2025-03-09 08:59 | Emergency (ER) | payer MEDICARE, SELFPAY ==
[2025-03-09 09:04] VITALS: BP 180/93; PULSE 87; RESP 15; TEMP 35.9; O2SAT 97
--- NOTE | 2025-03-09 09:16 | W.ED.GENAD ---
Discharge Plan Disposition Patient Disposition: Home Condition: Stable Discharge Details Clinical Impression: Lumbago with sciatica, left side Primary Care Provider: Govind Mendes ED Provider: Fidelina Joe Home Meds and New Rx's Prescriptions: New oxycodone 5 mg tablet 5 mg PO BID PRN (Reason: pain) Qty: 7 0RF Rx Instructions: Take one tablet by mouth twice daily as needed for moderate to severe pain No Action triamcinolone acetonide 0.1 % cream 1 applic topical BID PRN (Reason: ankle eczema) Qty: 30 1RF omeprazole 40 mg capsule,delayed release(DR/EC) 20 mg PO BID furosemide 40 mg tablet 80 mg PO BID acetaminophen [Tylenol Extra Strength] 500 mg tablet 1,000 mg PO Q8H PRN PRN amlodipine 2.5 mg tablet 5 mg PO DAILY carvedilol 12.5 mg tablet 12.5 mg PO BID Patient Comments: TAKE ONE TABLET BY MOUTH TWICE A DAY WITH MEALS losartan 100 mg tablet 100 mg PO DAILY Patient Comments: TAKE ONE TABLET BY MOUTH EVERY DAY sevelamer carbonate 800 mg tablet 1,600 mg PO TID Patient Comments: TAKE 2 TABLETS BY MOUTH THREE TIMES DAILY WITH MEALS AND TAKE 1 TABLET DAILY WITH A SNACK tamsulosin 0.4 mg capsule 0.4 mg PO DAILY Patient Comments: TAKE ONE CAPSULE BY MOUTH EVERY DAY vitamin B complex Tablet 1 tab PO DAILY cholecalciferol (vitamin D3) 1 cap PO DAILY Discharge Instructions Instructions: Sciatica Exercises, Sciatica ED Additional Instructions: Please take the pain medication up to twice daily with food. No driving or operating heavy machinery while taking this medication. Follow up with primary care provider in 3-5 days. Return to ED sooner if any worsening or concerns. Please take Tylenol or Ibuprofen with food every 4-6 hours as needed for pain and swelling. May alternate ice and heat. Referrals: Govind Mendes [Primary Care Provider, Medicine] - 5 days Referral Note: ER follow-up, call for appointment HPI General Mode of arrival: ambulatory. Date/Time Provider Initiated Documentation: 03/09/25 09:09. Limitations to Documentation: no limitations. Information obtained by: patient, RN notes reviewed and old records reviewed. HPI Narrative: 69-year-old male presents to the ER with a chief complaint of left lower back pain which radiates down to his left foot. This has been ongoing for approximately 1 week. States he was seen at [facility] and was placed on a prednisone, has taken 4 out of 5 days of this with little to no relief. Does have a past medical history of stage IV kidney disease is on dialysis at this time. Denies any back surgeries. Denies any problems urinating or burning with urination. Did take some Tylenol around midnight and the prednisone this morning. No other associated symptoms or concerns. Related Data Home Medications ?Medication ?Instructions ?Recorded ?Confirmed triamcinolone acetonide 0.1 % 1 applic topical BID PRN ankle 01/16/22 03/09/25 topical cream eczema #30 grams amlodipine 2.5 mg tablet 5 mg PO DAILY 10/09/23 03/09/25 omeprazole 40 mg capsule,delayed 20 mg PO BID 01/29/24 03/09/25 release acetaminophen 500 mg tablet 1,000 mg PO Q8H PRN PRN 10/14/24 03/09/25 (Tylenol Extra Strength) furosemide 40 mg tablet 80 mg PO BID 10/14/24 03/09/25 carvedilol 12.5 mg tablet 12.5 mg PO BID 03/09/25 03/09/25 cholecalciferol (vitamin D3) 1 cap PO DAILY 03/09/25 03/09/25 losartan 100 mg tablet 100 mg PO DAILY 03/09/25 03/09/25 oxycodone 5 mg tablet 5 mg PO BID PRN pain #7 tabs 03/09/25 sevelamer carbonate 800 mg tablet 1,600 mg PO TID 03/09/25 03/09/25 tamsulosin 0.4 mg capsule 0.4 mg PO DAILY 03/09/25 03/09/25 vitamin B complex 1 tab PO DAILY 03/09/25 03/09/25 Previous Rx's ?Medication ?Instructions ?Recorded triamcinolone acetonide 0.1 % 1 applic topical BID PRN ankle 01/16/22 topical cream eczema #30 grams oxycodone 5 mg tablet 5 mg PO BID PRN pain #7 tabs 03/09/25 Allergies Allergy/AdvReac Type Severity Reaction Status Date / Time morphine Allergy Intermediate HIVES/RASH Verified 03/09/25 09:10 Cephalosporins Allergy Itching Verified 03/09/25 09:10 empagliflozin (From AdvReac Intermediate Other (See Verified 03/09/25 09:10 Jardiance) Comment) General Stated Complaint: Nk/Back Pain VICTORIA: 3 Review of Systems All systems reviewed & are unremarkable except as noted in HPI and below Musculoskeletal Musculoskeletal: Reports as per HPI, Reports abnormal gait, Reports back pain and Reports radiating pain into limb Neurologic Neurologic: Reports abnormal gait Exam Narrative Exam Narrative: Constitutional: Alert and oriented x3. Appears stated age. Normal body habitus. Head: Normocephalic, no trauma. Chest: RRR, Normal S1, S2, distal pulses intact. Resp: Lungs clear to auscultation bilaterally, no wheezes, rales, or rhonchi. Abdomen: Soft, non-distended, Normoactive bowel sounds all 4 quads. Musculoskeletal: Normal gait, Moves all 4 extremities without difficulty. Skin: No suspicious rashes or lesions. Capillary refill less than 2 sec. Neurologic: Cranial nerves II-XII intact. Alert and oriented x 3. Motor: No deficits noted. Sensory: Intact bilaterally all 4 extremities. Hematologic/Lymphatic: No ecchymosis, no lymphadenopathy. Course Vital Signs Vital signs: Vital Signs Temperature 35.9 C L 03/09/25 09:04 Pulse 87 03/09/25 09:04 Respiratory Rate 15 03/09/25 09:04 Blood Pressure 180/93 H 03/09/25 09:04 Pulse Oximetry 97 03/09/25 09:04 Temperature 35.9 C L 03/09/25 09:04 Temperature Source Temporal Artery Scan 03/09/25 09:04 Pulse 87 03/09/25 09:04 Respiratory Rate 15 03/09/25 09:04 Blood Pressure 180/93 H 03/09/25 09:04 Pulse Oximetry 97 03/09/25 09:04 Pain Level 9 03/09/25 09:04 Medical Decision Making 69-year-old male presents to the ER with a chief complaint of left lower back pain which radiates down to his left foot. This has been ongoing for approximately 1 week. States he was seen at [facility] and was placed on a prednisone, has taken 4 out of 5 days of this with little to no relief. Does have a past medical history of stage IV kidney disease is on dialysis at this time. Denies any back surgeries. Denies any problems urinating or burning with urination. Did take some Tylenol around midnight and the prednisone this morning. No other associated symptoms or concerns. 60 mg of ketorolac, 60 mg of Norflex IM ordered, lidocaine patch. 1001: On patient reevaluation he still having some pain with ambulation and standing up. Oxycodone 5 mg p.o. ordered. Patient discharged into the care of his family, verbalized understanding. This text was generated using [employer] dictation system, please disregard any oddities of phrase or misspellings. PFSH All Active Problems (Updated 03/09/25 @ 10:26 by Fidelina Joe NP) Lumbago with sciatica, left side (Acute) Advanced care planning/counseling discussion (Acute) End stage renal disease (Acute) Fistula placed July 2024 ON transplant list [place] 20[place] [facility] Alcohol abuse, in remission (Acute) Rotator cuff tear arthropathy of left shoulder (Acute) Rotator cuff tear arthropathy of right shoulder (Acute) Nailbed laceration, finger (Acute) Fracture of distal phalanx of left middle finger (Acute 09/30/23) Pain, foot (Acute) Hammertoe (Acute) Hallux rigidus (Acute) Leg cramps (Acute) Hand or foot spasms (Acute) Obstructive sleep apnea (Chronic) CPAP Diverticulitis (Chronic) about [place] [place] with colostomy colostomy reversed later that year no problems since Essential hypertension (Acute) 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 This did resolve with conservative care did not require any further immediate intervention, hospitalized at [facility] Gallstone (Acute) Chronic alcoholic pancreatitis (Acute) Ruptured extensor tendon of hand or wrist (Acute) EPL left thumb Anemia in chronic kidney disease (CKD) (Acute) Lumbar spondylosis (Chronic) Reflux esophagitis (Chronic 09/24/95) GERD in excess of 20 years. on PPI that entire time ?esophageal stricture hx of Barretts Hyperlipidemia (Chronic) Medical History Palliative care encounter Alcohol abuse recurrent, hospitalized 2020 Acute kidney injury 10/2021-associated with acute illness/dehydration Chronic kidney disease, stage 4 (severe) 2021, Cr -2.1-2.9 History of basal cell cancer (~06/2019) Left ear Gout Surgical History H/O partial resection of colon s/p ostomy reversal Replacement of total knee joint 2013-RIGHT STRESS TEST (~01/2003) Family History Mother Breast cancer Father Heart disease Hyperlipidemia Sister Alcohol abuse Depression Sister Alcohol abuse Sister No problems noted. Brother Hyperlipidemia Brother No problems noted. Brother No problems noted. Brother No problems noted. Brother No problems noted. Maternal Grandfather No problems noted. Paternal Grandfather Alcohol abuse Hyperlipidemia Maternal Grandmother Alcohol abuse Paternal Grandmother Hyperlipidemia Stroke Son Testicular cancer Son No problems noted. Son No problems noted. Son No problems noted. Social History Smoking/Tobacco Use Status: Former Tobacco Use tobacco type: cigarettes Quit Date: 05/27/73 Second Hand Exposure: No Smoking risk assessment performed?: Yes Alcohol Intake: current Alcohol Intake frequency: holidays/special occasions only Alcohol type: hard liquor Counseling given: Yes Drug use: Never Substance use type: does not use Details: no longer drinks - goes to AA meetings Household members: spouse Housing: house Communication Needs: Hard of Hearing current occupation: [employer] Pets and animals: Yes Pets and animals: dog(s) Duration: > 90 minutes/day Frequency: daily Hoa/Bahai: Temple Special hoa needs: No Do you feel safe at home: Yes Do you feel safe in your relationship?: Yes
[2025-03-09] MEDS: Ketorolac 60 MG/2 ML VIAL IM (09:24)
[2025-03-09] MEDS: Orphenadrine 60 MG/2 ML VIAL IM (09:25)
[2025-03-09] MEDS: Lidocaine 5% Patch 1 PATCH TP (09:25)
[2025-03-09] MEDS: oxyCODONE 5 MG TAB PO (10:05)
[2025-03-09 10:40] VITALS: BP 173/90; PULSE 63; RESP 15; O2SAT 99
== END 2025-03-09 10:41 | disposition home or self-care (01) ==
PROVIDERS: Emergency Provider Registered Nurse Emergency; PCP Student in an Organized Health Care Education/Training Program
DX: M54.42 Lumbago with sciatica, left side (principal)
CPT/HCPCS: 99284; 99283; 96372; J2360; J1885

== ENCOUNTER 2025-03-14 17:20 | Emergency (ER) | payer MEDICARE, SELFPAY ==
[2025-03-14] VITALS (36 sets, daily range): BP systolic 143–180; BP diastolic 66–89; PULSE 64–74; RESP 9–21; TEMP 36.7; O2SAT 85–96
--- NOTE | 2025-03-14 17:30 | RT.EKG_ITS ---
APPROVED REPORT Exam: Resting ECG Reason for Exam: Left Shoulder Pain Patient Location: E HR:69 bpm ECG Measurements Heart Rate 69 AXIS HI 188 P 30 QRSd 103 QRS -32 QT 393 T 8 QTc 420 Conclusion Sinus rhythm, rate 69 T waves peaked compared to priors No interval abnormalities No STEMI Baseline artifact/wander V1/V2 Q waves III, aVF
[2025-03-14 18:13] LABS: Abs Immature Grans 0.03 10^3/uL (0.0-0.06); HCT 33.4 % (40.0-50.0); HGB 11.3 g/dL (13.5-17.5); Immature Grans % 0.4 %; MCH 32.2 pg (27.0-33.0); MCHC 33.8 % (32.0-36.0); MCV 95 fL (80-95); MPV 9.9 fL (8.0-11.0); Platelet Count 157 10^3/uL (130-400); RBC 3.51 10^6/uL (4.36-5.78); RDW 13.8 % (11.8-14.1); RDW-SD 48.3 fL; WBC 7.64 10^3/uL (4.4-10.8)
--- NOTE | 2025-03-14 18:25 | W.ED.GENAD ---
Discharge Plan Disposition Patient Disposition: Home Condition: Improving Discharge Details Clinical Impression: Lumbago with sciatica, left side, End stage renal disease, Hyperkalemia Primary Care Provider: Govind Mendes ED Provider: Donna Salazar Home Meds and New Rx's Prescriptions: New hydromorphone [Dilaudid] 2 mg tablet 2 mg PO Q6H PRNQty: 10 0RF No Action triamcinolone acetonide 0.1 % cream 1 applic topical BID PRN (Reason: ankle eczema) Qty: 30 1RF omeprazole 40 mg capsule,delayed release(DR/EC) 20 mg PO BID furosemide 40 mg tablet 80 mg PO BID acetaminophen [Tylenol Extra Strength] 500 mg tablet 1,000 mg PO Q8H PRN PRN amlodipine 2.5 mg tablet 5 mg PO DAILY carvedilol 12.5 mg tablet 12.5 mg PO BID Patient Comments: TAKE ONE TABLET BY MOUTH TWICE A DAY WITH MEALS losartan 100 mg tablet 100 mg PO DAILY Patient Comments: TAKE ONE TABLET BY MOUTH EVERY DAY sevelamer carbonate 800 mg tablet 1,600 mg PO TID Patient Comments: TAKE 2 TABLETS BY MOUTH THREE TIMES DAILY WITH MEALS AND TAKE 1 TABLET DAILY WITH A SNACK tamsulosin 0.4 mg capsule 0.4 mg PO DAILY Patient Comments: TAKE ONE CAPSULE BY MOUTH EVERY DAY vitamin B complex Tablet 1 tab PO DAILY cholecalciferol (vitamin D3) 1 cap PO DAILY oxycodone 5 mg tablet 5 mg PO BID PRN (Reason: pain) Qty: 7 0RF Rx Instructions: Take one tablet by mouth twice daily as needed for moderate to severe pain cyclobenzaprine 10 mg tablet 10 mg PO TID Patient Comments: TAKE ONE TABLET BY MOUTH THREE TIMES A DAY NEEDED FOR PAIN FOR 14 DAYS Discharge Instructions Instructions: Sciatica ED Additional Instructions: You were seen in the emergency department today for evaluation of worsening sciatica, shoulder pain and neck pain. In our department he had a full physical examination performed, and as far as your low back pain goes, had a CT scan that showed [id number]/degenerative changes and narrowing of the spaces that the nerves run, which is likely causing your sciatica. There were no fractures, or other findings that might explain your lack of improvement with typical medications. I recommend that you continue to use the topical Lidoderm, take Tylenol, and we can trial an oral Dilaudid as opposed to the oxycodone that you have been taking. You can continue to use the cyclobenzaprine as a muscle relaxer, and I have placed a referral to the pain clinic, to discuss next steps in workup and management. You were incidentally noted to have high potassium and some changes to your EKG which likely occurred because it is nearly time for your next dialysis appointment. We gave you medications that can help your body to clear potassium, through your stool in your urine. We discussed your case with the doctor of nurse anesthesia, who recommends that you take a second dose of the Lokelma, the powder that we gave you here in the emergency department, around 3 AM. You should take all other medications as prescribed. It is so important that you make it to your dialysis appointment tomorrow, as that is the only way to truly clear all of the potassium out of your system. Please follow-up with your primary care provider in the next few days to discuss this visit and any symptoms that change, worsen, or persist. Thank you for allowing us to be part of your care. HPI General Mode of arrival: ambulatory. Date/Time Provider Initiated Documentation: 03/14/25 17:25. Limitations to Documentation: no limitations. Information obtained by: patient, family and old records reviewed. HPI Narrative: This is a 69-year-old male patient with a past medical history significant for end-stage renal disease on hemodialysis Saturday/Saturday/Saturday, history of TERE, diverticulitis, hypertension, and lumbar degenerative changes with a recent diagnosis of left-sided sciatica, presenting for evaluation of ongoing low back and left buttock pain. The patient has been evaluated numerous times at urgent care, this ED, and his primary care's office, did not have any inciting traumatic events, has been using topical lidocaine, Tylenol (last dose 3 hours ago), had a course of prednisone that did not improve his symptoms, and a course of oxycodone and Flexeril, which also did not improve his symptoms. He reports he sometimes has numbness into the lateral aspect of his left leg, denies saddle anesthesia, bowel or bladder incontinence. Has not had fevers or chills, but over the last few days he has had nausea with dry heaving during episodes of severe pain. He is scheduled for an MRI in March, but presented today given his ongoing symptoms. He states that since he has been favoring his low back, he has started to develop left shoulder pain from leaning forward, which is the only position of comfort that he has. He also is developing some neck pain from hunching over. Denies chest pain, abdominal tenderness, states that he does make a very small amount of urine. Related Data Home Medications ?Medication ?Instructions ?Recorded ?Confirmed triamcinolone acetonide 0.1 % 1 applic topical BID PRN ankle 01/16/22 03/14/25 topical cream eczema #30 grams amlodipine 2.5 mg tablet 5 mg PO DAILY 10/09/23 03/14/25 omeprazole 40 mg capsule,delayed 20 mg PO BID 01/29/24 03/14/25 release acetaminophen 500 mg tablet 1,000 mg PO Q8H PRN PRN 10/14/24 03/14/25 (Tylenol Extra Strength) furosemide 40 mg tablet 80 mg PO BID 10/14/24 03/14/25 carvedilol 12.5 mg tablet 12.5 mg PO BID 03/09/25 03/14/25 cholecalciferol (vitamin D3) 1 cap PO DAILY 03/09/25 03/14/25 losartan 100 mg tablet 100 mg PO DAILY 03/09/25 03/14/25 oxycodone 5 mg tablet 5 mg PO BID PRN pain #7 tabs 03/09/25 03/14/25 sevelamer carbonate 800 mg tablet 1,600 mg PO TID 03/09/25 03/14/25 tamsulosin 0.4 mg capsule 0.4 mg PO DAILY 03/09/25 03/14/25 vitamin B complex 1 tab PO DAILY 03/09/25 03/14/25 cyclobenzaprine 10 mg tablet 10 mg PO TID 03/14/25 03/14/25 hydromorphone 2 mg tablet 2 mg PO Q6H PRN #10 tabs 03/14/25 (Dilaudid) Previous Rx's ?Medication ?Instructions ?Recorded triamcinolone acetonide 0.1 % 1 applic topical BID PRN ankle 01/16/22 topical cream eczema #30 grams oxycodone 5 mg tablet 5 mg PO BID PRN pain #7 tabs 03/09/25 hydromorphone 2 mg tablet 2 mg PO Q6H PRN #10 tabs 03/14/25 (Dilaudid) Allergies Allergy/AdvReac Type Severity Reaction Status Date / Time morphine Allergy Intermediate HIVES/RASH Verified 03/14/25 17:37 Cephalosporins Allergy Itching Verified 03/14/25 17:37 [id number] (From AdvReac Intermediate Other (See Verified 03/14/25 17:37 Jardiance) Comment) General Stated Complaint: Nk/Back Pain VICTORIA: 3 Exam Narrative Exam Narrative: Gen: awake and alert, in no apparent distress. Appears well nourished. HEENT: PERRL, EOMs full and without nystagmus. External ears and nose normal, mucous membranes moist. Neck: Supple, full range of motion, no observable masses Lungs: No increased work of breathing, lung sounds clear and equal bilaterally without wheezes, rhonchi, or rales. CV: Heart with regular rate and rhythm, no murmurs auscultated. Strong and symmetrical radial pulses. Abdomen: Soft, nondistended, non-tender to palpation. No rigidity, rebound tenderness, or guarding. MSK: No joint swelling, no redness. Full ROM without limitation, no external traumatic findings. No midline thoracic spine tenderness, inferior lumbar spine tenderness without step-offs or overlying skin changes, tenderness into the left lower lumbar paraspinal muscles and buttock. Trace bilateral peripheral edema to the lower extremities. Skin: No rashes or lesions to visualized skin. Normal color, warm, and dry. Neuro: Cranial nerves II-XII intact and symmetrical bilaterally. 5/5 strength in all muscle groups x4 extremities. No sensory deficits. Ambulates with steady gait. Psych: Appropriate for situation. Course Vital Signs Vital signs: Vital Signs Temperature 36.7 C 03/14/25 17:23 Pulse 69 03/14/25 17:23 Respiratory Rate 18 03/14/25 17:23 Blood Pressure 168/84 H 03/14/25 17:23 Pulse Oximetry 91 L 03/14/25 17:23 Temperature 36.7 C 03/14/25 17:23 Temperature Source Oral 03/14/25 17:23 Pulse 69 03/14/25 17:23 Respiratory Rate 18 03/14/25 17:23 Blood Pressure 168/84 H 03/14/25 17:23 Pulse Oximetry 91 L 03/14/25 17:23 Oxygen Delivery Method Room Air 03/14/25 17:23 Oxygen Flow Rate 0 03/14/25 17:23 Pain Level 9 03/14/25 17:23 Lab/Test Results Lab/Test Results: Laboratory Tests Range/Units 03/14/25 18:05 WBC (4.4-10.8) 10^3/uL 7.64 RBC (4.36-5.78) 10^6/uL 3.51 L Hgb (13.5-17.5) g/dL 11.3 L Hct (40.0-50.0) % 33.4 L MCV (80-95) fL 95 MCH (27.0-33.0) pg 32.2 MCHC (32.0-36.0) % 33.8 RDW (11.8-14.1) % 13.8 Plt Count (130-400) 10^3/uL 157 MPV (8.0-11.0) fL 9.9 Immature Gran % % 0.4 Neutrophils % % 68.0 Lymphocytes % % 13.5 Monocytes % % 10.3 Eosinophils % % 7.3 Basophils % % 0.5 Nucleated RBC % (0.0-0.3) % 0.0 Absolute Neutrophils (1.2-6.7) 10^3/uL 5.19 Absolute Lymphocytes (1.2-3.4) 10^3/uL 1.03 L Absolute Monocytes (0.1-0.8) 10^3/uL 0.79 Absolute Eosinophils (0.0-0.7) 10^3/uL 0.56 Absolute Basophils (0.0-0.2) 10^3/uL 0.04 Medical Decision Making This is a 69-year-old male patient presenting for evaluation of acute on chronic low back pain/sciatica, as well as nausea with dry heaves, shoulder and neck pain. Differential includes but is not limited to sciatica, degenerative disc disease, spinal stenosis. No evidence of neurodeficits at this time to suggest spinal cord compressive syndromes such as cauda equina, spinal epidural abscess, spinal hematoma. This patient has significant medical comorbidities, and I certainly considered nonmusculoskeletal etiologies including ACS, arrhythmia, intra-abdominal pathology including aortic disease, kidney stone, diverticulitis, etc. Considered metabolic and electrolyte derangements, dehydration, kidney and liver injury. An EKG was obtained, shows a sinus rhythm with an old inferior infarct, no STEMI criteria met, though the patient does have peaked T waves compared to priors. We will obtain labs to include CBC, CMP, magnesium, troponin, and lipase. Given the patient has already had x-ray imaging, and his differential is quite broad, we will obtain CT imaging without contrast of the chest, abdomen, and pelvis. I will provide the patient with Dilaudid for initial management of his symptoms given the limitations in end-stage renal disease. - I reviewed the patient's laboratory studies, which show no leukocytosis, stable and mild anemia at 11.3, no thrombocytopenia. Chemistry panel is notable for an initial potassium of 6.1, with a BUN of 91 and a creatinine of 9.9. Calcium slightly low at 7.8, no liver function abnormalities, lipase is low. The troponin was negative and without interval increase in 1 hour delta recheck. Inflammatory markers are not significantly elevated. CT scan reviewed by myself, showing degenerative changes in the lumbar spine with evidence of lumbar disc disease. No other acute abnormalities are identified. For the patient's hyperkalemia, I did provide him with a dose of calcium gluconate, as well as insulin, D50, Lokelma, and Lasix. On recheck, the patient's EKG is only marginally improved, potassium decreased to 5.5. The patient did have a slight decrease in his blood glucose, but was mentating appropriately and this improved with oral sugar containing juices. I discussed the patient's case with Dr. Evans Ramos of [facility] nephrology. The patient is greatly desiring to avoid admission or transfer, and wants to attend his dialysis appointment tomorrow. The doctor of nurse anesthesia was able to access a more recent EKG, and notes that the patient has had some peaking of his T waves, as well as some elevations in potassiums to the low sixes in the past. He feels that this likely is chronic and not requiring of emergent dialysis, but did recommend that we provide an additional 120 mg of Lasix to a total of 200 mg, and provide the patient with a take-home dose of Lokelma to take 8 hours after the first dose. The patient did have improvement in his back pain with the Dilaudid, I will provide him with oral Dilaudid as an alternative to his oxycodone, which has been ineffective. I did senior vice president & general counsel him on ongoing multimodal pain control, and provided a referral to the pain clinic. At this time, the patient has had a full medical evaluation and is safe for discharge to home. They are hemodynamically stable, ambulatory, and tolerating PO. They are understanding of the follow-up plan and return precautions. They left our facility without incident. Donna Salazar MD [facility] All Active Problems (Updated 03/14/25 @ 21:13 by Donna Salazar MD) Hyperkalemia (Acute) Lumbago with sciatica, left side (Acute) Advanced care planning/counseling discussion (Acute) End stage renal disease (Acute) Fistula placed July 2024 ON transplant list September 2024 [facility] Clinic Alcohol abuse, in remission (Acute) Rotator cuff tear arthropathy of left shoulder (Acute) Rotator cuff tear arthropathy of right shoulder (Acute) Nailbed laceration, finger (Acute) Fracture of distal phalanx of left middle finger (Acute 09/30/23) Pain, foot (Acute) Hammertoe (Acute) Hallux rigidus (Acute) Leg cramps (Acute) Hand or foot spasms (Acute) Obstructive sleep apnea (Chronic) CPAP Diverticulitis (Chronic) about 2004 .[facility] emergent with partial resection with colostomy colostomy reversed later that year no problems since Essential hypertension (Acute) 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 This did resolve with conservative care did not require any further immediate intervention, hospitalized at [facility] Gallstone (Acute) Chronic alcoholic pancreatitis (Acute) Ruptured extensor tendon of hand or wrist (Acute) EPL left thumb Anemia in chronic kidney disease (CKD) (Acute) Lumbar spondylosis (Chronic) Reflux esophagitis (Chronic 09/24/95) GERD in excess of 20 years. on PPI that entire time ?esophageal stricture hx of Barretts Hyperlipidemia (Chronic) Medical History Palliative care encounter Alcohol abuse recurrent, hospitalized 2020 Acute kidney injury 10/2021-associated with acute illness/dehydration Chronic kidney disease, stage 4 (severe) 2021, Cr -2.1-2.9 History of basal cell cancer (~06/2019) Left ear Gout Surgical History H/O partial resection of colon s/p ostomy reversal Replacement of total knee joint 2013-RIGHT STRESS TEST (~01/2003) Family History Mother Breast cancer Father Heart disease Hyperlipidemia Sister Alcohol abuse Depression Sister Alcohol abuse Sister No problems noted. Brother Hyperlipidemia Brother No problems noted. Brother No problems noted. Brother No problems noted. Brother No problems noted. Maternal Grandfather No problems noted. Paternal Grandfather Alcohol abuse Hyperlipidemia Maternal Grandmother Alcohol abuse Paternal Grandmother Hyperlipidemia Stroke Son Testicular cancer Son No problems noted. Son No problems noted. Son No problems noted. Social History Smoking/Tobacco Use Status: Former Tobacco Use tobacco type: cigarettes Quit Date: 05/27/73 Second Hand Exposure: No Smoking risk assessment performed?: Yes Alcohol Intake: current Alcohol Intake frequency: holidays/special occasions only Alcohol type: hard liquor Counseling given: Yes Drug use: Never Substance use type: does not use Details: no longer drinks - goes to AA meetings Household members: spouse Housing: house Communication Needs: Hard of Hearing current occupation: [employer] Pets and animals: Yes Pets and animals: dog(s) Duration: > 90 minutes/day Frequency: daily Hoa/Anabaptist: Jehovah'S Witness Special hoa needs: No Do you feel safe at home: Yes Do you feel safe in your relationship?: Yes
--- NOTE | 2025-03-14 18:30 | DI.CT_ITS ---
Exam(s) CT CHEST/ABD/PEL WO CT LUMBAR SPINE RECONS EXAM: CT CHEST/ABD/PEL WO and CT lumbar spine recons CLINICAL HISTORY: shoulder/neck pain, low back pain, nausea. TECHNIQUE: Imaging Protocol: Axial computed tomography images with coronal and sagittal reformatted images were created and reviewed. Computer aided detection (CAD) was utilized. COMPARISON: CT CT ABDOMEN PELVIS WO from 04/11/[address] ABDOMEN PELVIS WO from 06/02/[address] CHEST/ABD/PEL WO from 07/23/[address] RENAL COLIC WO from 11/20/[address] LUMBAR SPINE RECONS from 03/14/2025 FINDINGS: The examination is limited due to patient motion artifact. CHEST: Thyroid: Unremarkable as visualized. Tracheobronchial tree: Patent where visualized. Mediastinum and Ignacia: No dominant adenopathy or fluid collection. The esophagus is unremarkable. There are surgical clips seen at the gastroesophageal junction. Pulmonary parenchyma: No consolidation or dominant measurable mass. There is atelectasis seen in the lung bases. Pleura: No effusion or pneumothorax. Lymph nodes: Within normal limits. Aorta: Ascending thoracic aorta measures 4 x 3.8 cm. Atherosclerotic calcification is present. Heart: The heart is mildly enlarged. Moderate coronary artery calcification is present. No significant pericardial effusion is present. Bones: No acute abnormalities. There are marked degenerative changes seen at the right glenohumeral joint. There are old healed rib fractures. Age- appropriate degenerative changes are seen in the spine. Soft tissues: Grossly unremarkable. Lines: There is a right-sided central venous catheter. The tip is in the junction of the superior vena cava and right atrium. Lumbar spine recons: Age-appropriate degenerative changes are seen in the lumbar spine. There is a mild left convex curvature of the thoracic spine. There are no acute fractures or subluxations. ABDOMEN: Liver: Normal density. No measurable mass. Gallbladder and biliary tract: Cholelithiasis. The common duct measures 8 mm. There is no choledocholithiasis. No intrahepatic biliary ductal dilatation is noted. The gallbladder is distended measuring 6.3 cm in diameter. Pancreas: Normal density, no abnormal calcifications or inflammatory process. Spleen: Normal. There are calcified granuloma present. Kidneys: There is moderate bilateral renal cortical atrophy. No radiodense stones or obstructive uropathy. No masses seen. Adrenal glands: No masses seen. Aorta: Abdominal portion non-dilated. Atherosclerotic calcification is present. Lymph nodes: Within normal limits. PELVIS: Bladder: Symmetric distention, no gross wall thickening. Bowel: No obstruction or bowel wall thickening. There is a rectosigmoid anastomosis and a small bowel anastomosis present. There is no evidence of appendicitis. Peritoneal cavity: No ascites, collection or mesenteric inflammatory response. There is no free air. Bones: Within normal limits. Age-appropriate degenerative changes are seen in the lumbar spine. Reproductive organs: Within normal limits. Soft tissues: There is a small fat containing left-sided spigelian hernia. There are postsurgical changes seen in the anterior abdominal wall. IMPRESSION: 1. No acute pulmonary process. 2. Age-appropriate degenerative changes seen in the lumbar spine. 3. There are no acute fractures or subluxations in the lumbar spine. 4. No acute abdominal or pelvic process. 5. Cholelithiasis. The gallbladder is mildly distended. Gallbladder ultrasound should be considered for further evaluation. 6. The preliminary [facility] report was reviewed. RADIATION DOSE DELIVERED: 462.66mGy.cm Total DLP 462.66mGy.cm Total DLP DATA REPOSITORY: All CT scans at this facility are submitted to the National Radiology Data Registry (NRDR) Dose Index Registry (DIR) with the [employer] (ACR). RADIATION OPTIMIZATION: All CT scans at this facility use at least one of these dose optimization techniques: automated exposure control; mA and/or kV adjustment per patient size (includes targeted exams where dose is matched to clinical indication); or iterative reconstruction.
[2025-03-14 18:32] LABS: ALT 16 U/L (16-63); AST 7 U/L (15-37); Albumin 3.9 g/dL (3.4-5.0); Alkaline Phosphatase 59 U/L (46-116); Anion Gap 18.8 mmol/L (3-11); Bilirubin, Total 0.4 mg/dL (0.2-1.0); CO2 25.2 mmol/L (21.0-32.0); Calcium 7.8 mg/dL (8.5-10.1); Chloride 89 mmol/L (98-107); Estimated GFR 5.17 (mL/min/1.73m2); Glucose 82 mg/dL (74-106); Lipase 41 U/L (<78); Magnesium 2.3 mg/dL (1.8-2.4); Sodium 133 mmol/L (136-145); Total Protein 7.2 g/dL (6.4-8.2); Troponin I 22 ng/L (<or=76)
[2025-03-14 18:33] LABS: BUN 91 mg/dL (7-18)
[2025-03-14 18:34] LABS: Potassium 6.1 mmol/L (3.5-5.1)
[2025-03-14] MEDS: HYDROmorphone 2 MG/ML SYR 0.5 MG IVP (18:36)
--- NOTE | 2025-03-14 19:00 | RT.EKG_ITS ---
APPROVED REPORT Exam: Resting ECG Reason for Exam: repeat, [email or web address] Patient Location: E HR:67 bpm ECG Measurements Heart Rate 67 AXIS VT 183 P 45 QRSd 113 QRS -22 QT 408 T 24 QTc 430 Conclusion Sinus rhythm, rate 67 No interval abnormalities No STEMI Peaked T waves persist compared to priors
[2025-03-14] MEDS: Furosemide 100 MG/10 ML VIAL 80 MG IVP (19:09)
[2025-03-14] MEDS: Dextrose 50%-Water 25 GM/50 ML SYR IVP (19:10)
[2025-03-14] MEDS: Sodium Zirconium Cyclosilicate 10 GM PKT PO ×2 (19:10→21:29)
[2025-03-14] MEDS: Insulin REGULAR-Human 100 UNITS/ML UNIT IV (19:21)
[2025-03-14] MEDS: Calcium Gluconate 4.65 MEQ/10 ML VIAL 4.65 MG IVP (19:32)
[2025-03-14 19:37] LABS: C-Reactive Protein 3.18 mg/dL (<or=0.5)
[2025-03-14 19:38] LABS: ESR 13 mm/hr (0-20)
[2025-03-14 19:44] LABS: Troponin I 21 ng/L (<or=76)
[2025-03-14] MEDS: Normal Saline 50 ML 200 ML (19:44)
[2025-03-14 20:10] LABS: Potassium 5.5 mmol/L (3.5-5.1)
--- NOTE | 2025-03-14 20:26 | DI.[facility]_ITS ---
PROCEDURE INFORMATION: Exam: CT Chest Without Contrast; Diagnostic Exam date and time: 03/14/2025 6:49 PM Age: 69 years old Clinical indication: Shoulder/neck pain, low back pain, nausea TECHNIQUE: Imaging protocol: Diagnostic computed tomography of the chest without contrast. COMPARISON: CT CHEST/ABD/PEL WO 07/23/2021 7:23 PM FINDINGS: Tubes, catheters and devices: There is a right central line catheter in place consistent with a dialysis catheter. Lungs: See Coronary arteries finding. Pleural spaces: Unremarkable. No pneumothorax. No pleural effusion. Heart: Mild cardiomegaly. Coronary arteries: Coronary artery calcifications/stents identified. Next lines there is mild bibasilar atelectasis with some left lower lobe ground-glass change, uncertain chronicity. Ill-defined nodular opacity right lower lobe 9 mm in diameter series 2, image 48. Lymph nodes: Unremarkable. No enlarged lymph nodes. Vasculature: Unremarkable. No aortic aneurysm. Bones/joints: Unremarkable. No acute fracture. Soft tissues: Unremarkable. IMPRESSION: Mild bibasilar atelectasis with left lower lobe ground-glass change. PROCEDURE INFORMATION: Exam: CT Abdomen And Pelvis Without Contrast Exam date and time: 03/14/2025 6:49 PM Age: 69 years old Clinical indication: Shoulder/neck pain, low back pain, nausea TECHNIQUE: Imaging protocol: Computed tomography of the abdomen and pelvis without contrast. COMPARISON: CT RENAL COLIC WO 11/20/2021 1:25 PM FINDINGS: Diaphragm: Post hiatal hernia surgical repair change noted. Liver: Previously seen fatty liver is improved in appearance compared to prior study. Gallbladder and biliary ducts: Gallstone with mild gallbladder distension. Pancreas: Normal. No ductal dilation. Spleen: Normal. No splenomegaly. Adrenal glands: Normal. No mass. Kidneys and ureters: Bilateral renal atrophy again seen. Stomach and bowel: Small bowel anastomosis again seen. Appendix: No evidence of appendicitis. Intraperitoneal space: Unremarkable. No free air. No significant fluid collection. Vasculature: Unremarkable. No abdominal aortic aneurysm. Lymph nodes: Unremarkable. No enlarged lymph nodes. Urinary bladder: Unremarkable as visualized. Reproductive: Unremarkable as visualized. Bones/joints: Unremarkable. No acute fracture. Soft tissues: Unremarkable. IMPRESSION: Gallstone with gallbladder distension. Recommend sonography. Dictated and Authenticated by: Sierra Vera MD. Orderin St. Omari Thompson MD
--- NOTE | 2025-03-14 20:30 | DI.[facility]_ITS ---
PROCEDURE INFORMATION: Exam: CT Lumbar Spine Without Contrast Exam date and time: 03/14/2025 6:49 PM Age: 69 years old Clinical indication: Low back pain, L sciatica TECHNIQUE: Imaging protocol: Computed tomography of the lumbar spine without contrast. COMPARISON: CR XR LUMBAR SPINE COMPLETE 03/06/2025 12:07 PM FINDINGS: Bones/joints: There is hypertrophy of the ligamentum flavum with mild broad-based disc bulge and mild stenosis at the L2-L3 level. Similar changes seen at the L3-L4 level. There is or moderate stenosis at L4-L5 with similar change. At the L5-S1 there is left-sided calcified protrusion with impingement of the thecal sac level, presumed calcified disc material. Stomach and bowel: Rectosigmoid anastomosis. Vasculature: Moderate atherosclerotic change present in the vasculature. Soft tissues: Unremarkable. IMPRESSION: Multilevel spondylosis and stenosis as noted above. Dictated and Authenticated by: Sierra Vera MD. Orderin St. Omari Thompson MD
[2025-03-14] MEDS: Acetaminophen 500 MG TAB 1000 MG PO (20:42)
[2025-03-14] MEDS: HYDROmorphone 2 MG/ML SYR 1 MG IVP (20:42)
[2025-03-14] MEDS: Furosemide 100 MG/10 ML VIAL 120 MG IVP (21:07)
[2025-03-14] MEDS: HYDROmorphone 2 MG TAB 8 MG PO (21:29)
--- NOTE | 2025-03-15 11:32 | NUR.NOTE ---
Nursing Note: Records faxed to [facility] as requested- sent ED Provider note and imaging results from yesterday.
== END 2025-03-14 21:34 | disposition home or self-care (01) ==
PROVIDERS: Emergency Provider Emergency Medicine; PCP Student in an Organized Health Care Education/Training Program
DX: M54.42 Lumbago with sciatica, left side (principal); E87.5 Hyperkalemia; N18.6 End stage renal disease; R11.0 Nausea
CPT/HCPCS: 36415; 36416; 71250; 80053; 82962; 83690; 85652; 93005; 96374; 96375; 96376; 99284; 74176; 83735; 84132; 84484; 85025; 86140; 93010; J0612; J1171; J1815; J1938

== ENCOUNTER 2025-03-17 09:19 | Outpatient (CLI) | payer MEDICARE, SELFPAY ==
--- NOTE | 2025-03-17 | DI.MRI_ITS ---
Exam(s) MR LUMBAR SPINE WO EXAM: MR LUMBAR SPINE WO CLINICAL HISTORY: SCIATICA LT SIDE M54.32 CHRONIC LOW BACK PAIN W/ ACUTE SCAITICA NO TRAUMA. TECHNIQUE: Multiplanar multisequence MRI of the Lumbar spine was performed. COMPARISON: CT CT LUMBAR SPINE RECONS from 03/14/[address] CHEST/ABD/PEL WO from 03/14/2025 FINDINGS: The examination is limited due to patient motion artifact. Bones: The last intervertebral disc space is designated the L5/S1 level for the numbering purpose of this examination. The vertebral body heights are well maintained. Alignment is satisfactory. There are degenerative endplate signal changes most marked at L2-3, L4-5 and L5-S1. Cord: It is of normal size and signal intensity. T12-L1: No disc herniations or bulges are present. No central spinal canal or neural foraminal stenosis. L1-2: No disc herniations or bulges are present. No central spinal canal or neural foraminal stenosis. L2-3: There are degenerative changes of the facets and hypertrophy of the ligamentum flavum. There is a mild diffuse disc bulge. There is mild central spinal canal stenosis. There is moderate right and no significant left neural foraminal stenosis. L3-4: There is a mild diffuse disc bulge. Degenerative changes of the facets are seen. Minimal narrowing of the central spinal canal is noted. There is mild right and no significant left neural foraminal stenosis. L4-5: There is a mild diffuse disc bulge. There are degenerative changes of the facets and hypertrophy of the ligamentum flavum. These all contribute to cause mild narrowing of the central spinal canal. There is moderate left and mild right neural foraminal stenosis. L5-S1: There is a moderate size left paracentral disc herniation with extrusion posterior to the S1 vertebral body. There is left lateral recess stenosis compressing the left S1 nerve root. There also appears to be mild compression upon the left S2 nerve root. There is mild narrowing of the central spinal canal.There is moderate right and [id number] left neural foraminal stenosis. Mild degenerative changes of the facets are present. Soft tissues: The visualized SI joints and sacrum are well maintained. The paraspinal soft tissues are unremarkable. IMPRESSION: 1. Moderate size left paracentral disc herniation at L5-S1 causing left lateral recess stenosis with compression of the left S1 nerve root. 2. Degenerative changes at L5-S1 causing bilateral neural foraminal stenosis. 3. Degenerative changes seen at L2-3, L3-4 and L4-L5 causing some degree of central spinal canal stenosis and neural foraminal stenosis as described above. DATA REPOSITORY:
== END 2025-03-17 09:39 ==
LOC: DI 09:19
PROVIDERS: PCP Student in an Organized Health Care Education/Training Program; Visit Provider Physician Assistant
DX: M54.32 Sciatica, left side (principal); M51.360 Other intervertebral disc degeneration, lumbar region with discogenic back pain only; M99.63 Osseous and subluxation stenosis of intervertebral foramina of lumbar region
CPT/HCPCS: 72148

== ENCOUNTER 2025-03-24 07:08 | Emergency (ER) | payer MEDICARE, SELFPAY ==
[2025-03-24 07:09] VITALS: BP 158/95; PULSE 73; RESP 15; TEMP 36.4; O2SAT 99
--- NOTE | 2025-03-24 07:30 | RT.EKG_ITS ---
APPROVED REPORT Exam: Resting ECG Reason for Exam: Dialysis Patient Location: E HR:76 bpm ECG Measurements Heart Rate 76 AXIS UT 170 P 72 QRSd 112 QRS 47 QT 399 T 72 QTc 448 Conclusion Sinus rhythm...normal P axis, V-rate 60- 99 No Occlusion SD
--- NOTE | 2025-03-24 07:41 | W.ED.GENAD ---
Discharge Plan Disposition Patient Disposition: Home Discharge Details Clinical Impression: Cholelithiasis, Abdominal pain, Dilated cbd, acquired Primary Care Provider: Govind Mendes ED Provider: Slade Valle [place] Meds and New Rx's Prescriptions: Continued triamcinolone acetonide 0.1 % cream 1 applic topical BID PRN (Reason: ankle eczema) Qty: 30 1RF omeprazole 40 mg capsule,delayed release(DR/EC) 20 mg PO BID furosemide 40 mg tablet 80 mg PO BID acetaminophen [Tylenol Extra Strength] 500 mg tablet 1,000 mg PO Q8H PRN PRN amlodipine 2.5 mg tablet 5 mg PO DAILY carvedilol 12.5 mg tablet 12.5 mg PO BID Patient Comments: TAKE ONE TABLET BY MOUTH TWICE A DAY WITH MEALS losartan 100 mg tablet 100 mg PO DAILY Patient Comments: TAKE ONE TABLET BY MOUTH EVERY DAY sevelamer carbonate 800 mg tablet 1,600 mg PO TID Patient Comments: TAKE 2 TABLETS BY MOUTH THREE TIMES DAILY WITH MEALS AND TAKE 1 TABLET DAILY WITH A SNACK tamsulosin 0.4 mg capsule 0.4 mg PO DAILY Patient Comments: TAKE ONE CAPSULE BY MOUTH EVERY DAY vitamin B complex Tablet 1 tab PO DAILY cholecalciferol (vitamin D3) 1 cap PO DAILY oxycodone 5 mg tablet 5 mg PO BID PRN (Reason: pain) Qty: 7 0RF Rx Instructions: Take one tablet by mouth twice daily as needed for moderate to severe pain ondansetron 8 mg tablet,disintegrating 8 mg PO BID PRN Patient Comments: DISSOLVE ONE TABLET ON THE TONGUE TWICE A DAY NEEDED FOR NAUSEA Discharge Instructions Additional Instructions: You are seen in the emergency department for your nausea and abdominal pain. You had a stone in your gallbladder. As we discussed there was concern that the stone could have intermittently been getting caught in the neck of your gallbladder. This can cause an infection called acute cholecystitis. If you develop fevers nausea that returns or does not stop or any worsening abdominal pain please return to the emergency department. Your CAT scan showed no signs of a bowel obstruction. A next step would likely be to obtain an MRI of your abdomen to assess for common bile duct. You elected to be discharged to receive dialysis. Discharge Data Discharge Date/Time-TO BE ENTERED AT DEPARTURE: 03/24/25 11:41 HPI General Date/Time Provider Initiated Documentation: 03/24/25 07:21. HPI Narrative: MDM This is an overall quite well-appearing normothermic and not tachycardic 69-year-old male with abdominal pain nausea and vomiting concerning for intra-abdominal infection for which patient will undergo CT scan. Patient is a dialysis patient so hyperkalemia is certainly on the differential. He has no QRS widening, normal sinus rythym. Rate of 76. QTc within normal limits. VA within normal limits. No acute injury pattern. Appears similar to prior. No rash to abdomen to suggest zoster. No pain out of proportion to suggest necrotizing soft tissue infection. Patient is not an alcoholic but given epigastric discomfort will obtain lipase to assess for pancreatitis. No shortness of breath to suggest PE so did not send a D-dimer. No dysuria or frequency to suggest UTI. No flank pain or history of nephrolithiasis to suggest ureterolithiasis. I considered mesenteric ischemia however patient has no history of atrial fibrillation so I did not send a lactate. 9 AM CBC with no leukocytosis. Slightly worsened normocytic anemia. No thrombocytopenia. 9:15 AM Basic metabolic panel showing no hyperkalemia. Anion gap but normal bicarbonate no significant hyperglycemia––not consistent with DKA. CKD. Mildly elevated lipase not consistent with pancreatitis. Initial reassuring troponin. Patient had reassuring LFTs. 10:[address] scan showed cholelithiasis with stone near region of gallbladder neck. Gallbladder moderately distended. Will complete formal right upper quadrant ultrasound. Patient is pain-free at the moment. 10:55 AM Ultrasound has taken patient for right upper quadrant ultrasound. Repeat troponin reassuring. 4:22 PM Late charting due to patient care. Patient his and I met following patient's ultrasound which was read as showing cholelithiasis with gallbladder wall distention but no edema or pericholecystic fluid. Patient's CBD was dilatation. We discussed that the best approach to assess for etiology of his pain would be to undergo MRCP to assess for CBD stone. Patient and his are concerned that he was due for dialysis and then he had an appointment at [facility]. He was pain-free. We discussed pros and cons of transfer for MRCP. I advised that it can be quite difficult to transfer the patient but that I would certainly be willing to try. I also advised that while we are waiting to transfer him he would likely develop hyperkalemia if he did not undergo dialysis. He had not been vomiting in the emergency department. Patient and ultimately elected to be discharged given improved symptoms. I advised patient to return to the ED if symptoms returned if patient developed a nausea or vomiting or any other concerns. Patient was not altered to suggest ascending cholangitis. Patient and understood return indications patient was discharged with an empiric trial of expectant outpatient management. HPI This is a patient with a history of hiatal hernia and sciatica presenting with abdominal pain and nausea. The patient began experiencing upper abdominal pain this morning. He has a history of hiatal hernia, which was surgically corrected over 2 years ago. He reports no chest pain or difficulty breathing. His last bowel movement was yesterday, which he describes as normal. He takes MiraLAX almost daily and took it this morning due to the onset of stomach cramps. He has no history of kidney stones. The patient has been experiencing persistent nausea for nearly 2 weeks, which led to the prescription of ondansetron 4 mg daily, later increased to 3 times daily. Despite these interventions, his condition has been deteriorating. Yesterday, he experienced dry heaving while out with a friend and again this morning. A consultation with Clarissa Lujan at Dr. Denny' office suggested that his stomach may be in a state of constant contraction, leading to the decision to increase his ondansetron dosage. The patient developed sciatica and back pain on 03/03/2025, which persisted for several days before he sought medical attention at a walk-in clinic. An x-ray was performed, and he was initially treated with prednisone for a week. He also consulted with his physical therapist, Dr. Lujan, who diagnosed him with sciatica. His treatment regimen included Dilaudid, which was later switched to oxycodone due to ineffectiveness. He underwent a CT scan of the chest, abdomen, and pelvis on 03/14/2025, and an MRI of the spine on 03/17/2025. His spine pain has slightly improved today. The patient is scheduled for dialysis at noon today and has an appointment at the pain clinic at 8:30 AM. He reports no leg swelling but notes that his feet and ankles have been swollen for the past 2 weeks. PAST SURGICAL HISTORY: Hiatal hernia surgery over 2 years ago. Exam General: Well-appearing in no acute distress speaking in complete sentences. Head: Normocephalic, atraumatic. Eye: Extraocular eye movements intact. No conjunctival injection. No scleral icterus. Ear, nose, mouth, throat: Grossly normal inspection. Normal voice, handling secretions normally. Neck: Trachea midline. Cardiovascular: Well-perfused distal extremities. Regular rate and rhythm Respiratory: Nonlabored respiration. Clear lungs bilaterally Gastrointestinal: Nondistended abdomen. Soft. Minimal epigastric tenderness. No rebound. No guarding. Musculoskeletal: No edema. Moving all 4 extremities spontaneously. Skin: Normal for age and race, grossly normal temperature and turgor. No acute rash. Neurologic: Alert and appropriate, no apparent acute deficits. Related Data Home Medications Medication Instructions Recorded Confirmed triamcinolone acetonide 0.1 % 1 applic topical BID PRN ankle 01/16/22 03/24/25 topical cream eczema #30 grams amlodipine 2.5 mg tablet 5 mg PO DAILY 10/09/23 03/24/25 omeprazole 40 mg capsule,delayed 20 mg PO BID 01/29/24 03/24/25 release acetaminophen 500 mg tablet 1,000 mg PO Q8H PRN PRN 10/14/24 03/24/25 (Tylenol Extra Strength) furosemide 40 mg tablet 80 mg PO BID 10/14/24 03/24/25 carvedilol 12.5 mg tablet 12.5 mg PO BID 03/09/25 03/24/25 cholecalciferol (vitamin D3) 1 cap PO DAILY 03/09/25 03/24/25 losartan 100 mg tablet 100 mg PO DAILY 03/09/25 03/24/25 oxycodone 5 mg tablet 5 mg PO BID PRN pain #7 tabs 03/09/25 03/24/25 sevelamer carbonate 800 mg tablet 1,600 mg PO TID 03/09/25 03/24/25 tamsulosin 0.4 mg capsule 0.4 mg PO DAILY 03/09/25 03/24/25 vitamin B complex 1 tab PO DAILY 03/09/25 03/24/25 ondansetron 8 mg disintegrating 8 mg PO BID PRN 03/24/25 03/24/25 tablet Previous Rx's Medication Instructions Recorded triamcinolone acetonide 0.1 % 1 applic topical BID PRN ankle 01/16/22 topical cream eczema #30 grams oxycodone 5 mg tablet 5 mg PO BID PRN pain #7 tabs 03/09/25 Allergies Allergy/AdvReac Type Severity Reaction Status Date / Time morphine Allergy Intermediate HIVES/RASH Verified 03/24/25 07:16 Cephalosporins Allergy Itching Verified 03/24/25 07:16 empagliflozin (From AdvReac Intermediate Other (See Verified 03/24/25 07:16 Jardiance) Comment) General Stated Complaint: Nausea/Vomit/Diar VICTORIA: 3 Course Vital Signs Vital signs: Vital Signs Temperature 36.4 C 03/24/25 07:09 Pulse 73 03/24/25 07:09 Respiratory Rate 15 03/24/25 07:09 Blood Pressure 158/95 H 03/24/25 07:09 Pulse Oximetry 99 03/24/25 07:09 Temperature 36.4 C 03/24/25 07:09 Temperature Source Oral 03/24/25 07:09 Pulse 73 03/24/25 07:09 Respiratory Rate 15 03/24/25 07:09 Blood Pressure 158/95 H 03/24/25 07:09 Blood Pressure Position Sitting 03/24/25 07:09 Pulse Oximetry 99 03/24/25 07:09 Oxygen Delivery Method Room Air 03/24/25 07:09 Oxygen Flow Rate 0 03/24/25 07:09 Pain Level 7 03/24/25 07:09 PFSH All Active Problems (Updated 03/24/25 @ 11:31 by Slade Valle MD) Dilated cbd, acquired (Acute) Abdominal pain (Acute) Cholelithiasis (Acute) Hyperkalemia (Acute) Lumbago with sciatica, left side (Acute) Advanced care planning/counseling discussion (Acute) End stage renal disease (Acute) Fistula placed July 2024 ON transplant list September 2024 [facility] [place] [facility] Alcohol abuse, in remission (Acute) Rotator cuff tear arthropathy of left shoulder (Acute) Rotator cuff tear arthropathy of right shoulder (Acute) Nailbed laceration, finger (Acute) Fracture of distal phalanx of left middle finger (Acute 09/30/23) Pain, foot (Acute) Hammertoe (Acute) Hallux rigidus (Acute) Leg cramps (Acute) Hand or foot spasms (Acute) Obstructive sleep apnea (Chronic) CPAP Diverticulitis (Chronic) about 2004 .[facility] [place] emergent with partial resection with colostomy colostomy reversed later that year no problems since Essential hypertension (Acute) 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 This did resolve with conservative care did not require any further immediate intervention, hospitalized at [facility] Gallstone (Acute) Chronic alcoholic pancreatitis (Acute) Ruptured extensor tendon of hand or wrist (Acute) EPL left thumb Anemia in chronic kidney disease (CKD) (Acute) Lumbar spondylosis (Chronic) Reflux esophagitis (Chronic 09/24/95) GERD in excess of 20 years. on PPI that entire time ?esophageal stricture hx of Barretts Hyperlipidemia (Chronic) Medical History (Updated 03/24/25 @ 11:31 by Slade Valle MD) Systolic murmur Fatigue End stage renal failure on dialysis Anemia of chronic renal failure Chronic bilateral low back pain Vitamin D deficiency Gastritis Exocrine pancreatic insufficiency Thoracic arthritis Palliative care encounter Alcohol abuse recurrent, hospitalized 2020 Acute kidney injury 10/2021-associated with acute illness/dehydration Chronic kidney disease, stage 4 (severe) 2021, Cr -2.1-2.9 History of basal cell cancer (~06/2019) Left ear Gout Surgical History H/O partial resection of colon s/p ostomy reversal Replacement of total knee joint 2012-RIGHT STRESS TEST (~01/2003) Family History Mother Breast cancer Father Heart disease Hyperlipidemia Sister Alcohol abuse Depression Sister Alcohol abuse Sister No problems noted. Brother Hyperlipidemia Brother No problems noted. Brother No problems noted. Brother No problems noted. Brother No problems noted. Maternal Grandfather No problems noted. Paternal Grandfather Alcohol abuse Hyperlipidemia Maternal Grandmother Alcohol abuse Paternal Grandmother Hyperlipidemia Stroke Son Testicular cancer Son No problems noted. Son No problems noted. Son No problems noted. Social History Smoking/Tobacco Use Status: Former Tobacco Use tobacco type: cigarettes Quit Date: 05/27/73 Second Hand Exposure: No Smoking risk assessment performed?: Yes Alcohol Intake: current Alcohol Intake frequency: holidays/special occasions only Alcohol type: hard liquor Counseling given: Yes Drug use: Never Substance use type: does not use Details: no longer drinks - goes to AA meetings Household members: spouse Housing: house Communication Needs: Hard of Hearing current occupation: [employer] Pets and animals: Yes Pets and animals: dog(s) Duration: > 90 minutes/day Frequency: daily Hoa/Moravian: Buddhist Special hoa needs: No Do you feel safe at home: Yes Do you feel safe in your relationship?: Yes
[2025-03-24 08:35] VITALS: BP 158/95; PULSE 73; RESP 15; TEMP 36.4; O2SAT 99
[2025-03-24 08:38] LABS: Abs Immature Grans 0.03 10^3/uL (0.0-0.06); HCT 31.4 % (40.0-50.0); HGB 10.5 g/dL (13.5-17.5); Immature Grans % 0.3 %; MCH 31.9 pg (27.0-33.0); MCHC 33.4 % (32.0-36.0); MCV 95 fL (80-95); MPV 9.8 fL (8.0-11.0); Platelet Count 137 10^3/uL (130-400); RBC 3.29 10^6/uL (4.36-5.78); RDW 13.2 % (11.8-14.1); RDW-SD 46.7 fL; WBC 10.85 10^3/uL (4.4-10.8)
[2025-03-24 09:00] LABS: ALT 16 U/L (16-63); AST 8 U/L (15-37); Albumin 3.9 g/dL (3.4-5.0); Alkaline Phosphatase 57 U/L (46-116); Anion Gap 15.4 mmol/L (3-11); BUN 46 mg/dL (7-18); Bilirubin, Total 0.4 mg/dL (0.2-1.0); CO2 30.6 mmol/L (21.0-32.0); Calcium 9.6 mg/dL (8.5-10.1); Chloride 91 mmol/L (98-107); Glucose 96 mg/dL (74-106); Lipase 128 U/L (<78); Potassium 5.1 mmol/L (3.5-5.1); Sodium 137 mmol/L (136-145); Total Protein 7.4 g/dL (6.4-8.2)
[2025-03-24 09:03] LABS: Troponin I 29 ng/L (<or=76)
--- NOTE | 2025-03-24 09:14 | DI.CT_ITS ---
Exam(s) CT ABDOMEN PELVIS WO EXAM: CT ABDOMEN PELVIS WO CLINICAL HISTORY: Abdominal pain. TECHNIQUE: Imaging Protocol: Axial computed tomography images with coronal and sagittal reformatted images were created and reviewed CONTRAST MATERIAL: Intravenous: none Oral: None COMPARISON: CT CT LUMBAR SPINE RECONS from 03/14/2025 FINDINGS: VISUALIZED LUNG BASES: Mild infiltrate in the dependent lung bases. There are no pleural effusions.. ABDOMEN: There is evidence of previous surgery in proximal stomach. LIVER: There are no obvious focal hepatic lesions evident of this noninfused study. GALLBLADDER/BILIARY: There is a solitary calcified gallstone measuring 7 mm in the gallbladder neck region. Gallbladder lumen is distended to 14 cm by 4.6 cm but does not appear edematous and there is no pericholecystic fluid. The CBD diameter is increased, measuring 12 mm. There is no radiopaque calculus seen in the lower CBD nor obvious pancreatic head mass. PANCREAS: No evidence of pancreatic mass nor dilatation of the pancreatic duct. SPLEEN: Spleen size is normal. A few splenic granulomas are noted but no ominous splenic lesions. ADRENALS: There are no significant adrenal masses. KIDNEYS:There is a small exophytic cyst off the posterior cortex of the left kidney measuring 1 cm, not requiring further workup. No solid renal masses. No radiopaque calculi and no hydronephrosis nor hydroureter.. ABDOMINAL AORTA: Calcified but not enlarged. LYMPH NODES: There is no retroperitoneal nor paraaortic adenopathy. ABDOMINAL WALL: No evidence of significant anterior abdominal wall nor inguinal hernia. GI: Small bowel loop diameters are upper normal-minimally prominent. There appears to be an anastomosis in the distal small bowel with diameter of the small bowel 3 cm just proximal to this. The diameter of the most terminal ileum is 1.3 cm. The colon is not collapsed. There is also an anastomosis in the rectum. Colon above this level is not overly distended. PELVIS: LYMPH NODES: There is no intrapelvic nor inguinal adenopathy. GI: No evidence of appendicitis.No evidence of sigmoid diverticulitis. URINARY BLADDER: Partially collapsed. REPRODUCTIVE: Prostate size upper normal. Seminal vesicles unremarkable. OSSEOUS: No significant osseous lesions. No fractures. Chronic disc space narrowing L4-5 and L5-S1. No listhesis. IMPRESSION: 1. There is evidence of previous bowel surgeries with anastomosis seen in the distal small bowel and the rectum. There is mild dilatation of small bowel loops proximal to the distal small bowel anastomosis but there does not appear to be a high-grade bowel obstruction. There is also no ascites. 2. Cholelithiasis. There is a solitary 7 millimeter calcified gallstone in the gallbladder neck region. The gallbladder is moderately distended but does not appear edematous. The CBD diameter is enlarged measuring 12 mm but without evidence of obvious radiopaque calculus in the lower CBD nor mass in this region. Other findings as above. Report called to ER 03/24/2025 at 10 a.m. RADIATION DOSE DELIVERED: 424.74mGy.cm Total DLP DATA REPOSITORY: All CT scans at this facility are submitted to the National Radiology Data Registry (NRDR) Dose Index Registry (DIR) with the [employer] (ACR). RADIATION OPTIMIZATION: All CT scans at this facility use at least one of these dose optimization techniques: automated exposure control; mA and/or kV adjustment per patient size (includes targeted exams where dose is matched to clinical indication); or iterative reconstruction.
[2025-03-24 09:33] VITALS: BP 145/62; PULSE 74; RESP 16
--- NOTE | 2025-03-24 10:00 | DI.US_ITS ---
Exam(s) US ABDOMEN LIMITED EXAM: US ABDOMEN LIMITED CLINICAL HISTORY: CBD dilatation TECHNIQUE: Ultrasound abdomen performed using standard protocol. COMPARISON: US US ECHOCARDIOGRAM from 03/12/[address] ABDOMEN PELVIS WO from 03/24/2025 FINDINGS: There is no ascites evident. LIVER: There are no hepatic lesions evident nor dilatation of intrahepatic ducts. GALLBLADDER/BILIARY: There is a 7 millimeter gallstone in the gallbladder neck region as seen on recent CT scan. The gallbladder is distended measuring 6.4 mm trans. There is no gallbladder wall edema nor pericholecystic fluid. The common hepatic duct isdilated, measuring 11mm at the level of edouard hepatis. PANCREAS: Not visualized due to overlying bowel gas. RIGHT KIDNEY:No evidence of solid mass, calculus, nor hydronephrosis. No cortical cysts evident. IMPRESSION: 1. Cholelithiasis. The gallbladder is somewhat distended but does not appear edematous. There is no pericholecystic fluid. 2. CBD is dilated. No obvious calculi in the CBD. 3. Previous is not able to be visualized on this ultrasound exam due to overlying bowel gas. However, there are no obvious findings in the pancreas on CT scan performed earlier same date. DATA REPOSITORY:
[2025-03-24 10:22] LABS: Troponin I 25 ng/L (<or=76)
[2025-03-24 11:40] VITALS: BP 152/63; PULSE 82; RESP 20; O2SAT 98
== END 2025-03-24 11:41 | disposition home or self-care (01) ==
PROVIDERS: Emergency Provider Emergency Medicine; PCP Student in an Organized Health Care Education/Training Program
DX: K80.20 Calculus of gallbladder without cholecystitis without obstruction (principal); K83.8 Other specified diseases of biliary tract
CPT/HCPCS: 99284; 99285; 36415; 80053; 83690; 93005; 74176; 76705; 84484; 85025; 93010

== ENCOUNTER 2025-03-25 15:25 | Emergency (ER) | payer MEDICARE, SELFPAY ==
[2025-03-25 15:35] VITALS: BP 169/86; PULSE 70; RESP 20; TEMP 36.8; O2SAT 92
--- NOTE | 2025-03-25 15:43 | W.ED.GENAD ---
Discharge Plan Disposition Patient Disposition: Home Discharge Details Clinical Impression: Nausea Primary Care Provider: Govind Mendes ED Provider: Rebeca Maldonado Home Meds and New Rx's Prescriptions: No Action triamcinolone acetonide 0.1 % cream 1 applic topical BID PRN (Reason: ankle eczema) Qty: 30 1RF omeprazole 40 mg capsule,delayed release(DR/EC) 20 mg PO BID furosemide 40 mg tablet 80 mg PO BID acetaminophen [Tylenol Extra Strength] 500 mg tablet 1,000 mg PO Q8H PRN PRN amlodipine 2.5 mg tablet 5 mg PO DAILY carvedilol 12.5 mg tablet 12.5 mg PO BID Patient Comments: TAKE ONE TABLET BY MOUTH TWICE A DAY WITH MEALS losartan 100 mg tablet 100 mg PO DAILY Patient Comments: TAKE ONE TABLET BY MOUTH EVERY DAY sevelamer carbonate 800 mg tablet 1,600 mg PO TID Patient Comments: TAKE 2 TABLETS BY MOUTH THREE TIMES DAILY WITH MEALS AND TAKE 1 TABLET DAILY WITH A SNACK tamsulosin 0.4 mg capsule 0.4 mg PO DAILY Patient Comments: TAKE ONE CAPSULE BY MOUTH EVERY DAY vitamin B complex Tablet 1 tab PO DAILY cholecalciferol (vitamin D3) 1 cap PO DAILY oxycodone 5 mg tablet 5 mg PO BID PRN (Reason: pain) Qty: 7 0RF Rx Instructions: Take one tablet by mouth twice daily as needed for moderate to severe pain ondansetron 8 mg tablet,disintegrating 8 mg PO BID PRN Patient Comments: DISSOLVE ONE TABLET ON THE TONGUE TWICE A DAY NEEDED FOR NAUSEA Discharge Instructions Additional Instructions: Please follow-up with your primary care provider tomorrow at 8 AM as scheduled. I recommend that you discuss further evaluation into the gallstone that is in your gallbladder, this may be evaluated in outpatient setting with MRI. Testing for H. pylori/peptic ulcer disease may also be indicated. I recommend that you discuss today's workup with your primary care provider and follow-up with any outpatient testing as needed. Your workup today was reassuring. There were no acute abnormalities or signs of infection. Continue to take your Zofran as prescribed. Return to emergency care if you develop new abdominal or chest pain, difficulty breathing, intractable nausea, fever/chills, are unable to move your bowels or have blood in your stool, or if you are very worried and need to be rechecked again immediately Referrals: Govind Mendes [Primary Care Provider, Medicine] [facility] General Date/Time Provider Initiated Documentation: 03/25/25 15:28. HPI Narrative: Mathew is a 69-year-old male presents to the emergency department today accompanied by his for evaluation of ongoing nausea/dry heaving worsens over the last 4 days. He reports that symptoms started 1 month ago when he started having sciatica pain, was evaluated multiple times by emergency department and PCP, started on antinausea medications and opioids for pain control. He reports that he had some nausea on and off for the last month, but 4 days ago it became worse and he has had significant ongoing nausea with dry heaves because he is not able to vomit. This is accompanied by occasional upper abdominal discomfort. Nausea is triggered by ambulation, no other associated symptoms when he has episodes of nausea such as weakness or paresthesias. He also reports a mild on and off headache that is relieved with Tylenol, denies associated dizziness, vision changes, problems with ambulation. Denies fever/chills, congestion, ear pain, sore throat, chest pain, cough, palpitations, change in p.o. intake, change in bowel or bladder function, black/tarry stools, saddle anesthesia, extremity weakness. Denies recent ill contacts. He does have PMH of HTN, HLD, esophagitis with Sharma's esophagus, hiatal hernia repair, EtOH abuse in remission, and end-stage renal disease with dialysis. Last dialysis yesterday, normal session. Surgical history significant for bowel resection due to diverticulitis, hiatal hernia repair Related Data Home Medications Medication Instructions Recorded Confirmed triamcinolone acetonide 0.1 % 1 applic topical BID PRN ankle 01/16/22 03/25/25 topical cream eczema #30 grams amlodipine 2.5 mg tablet 5 mg PO DAILY 10/09/23 03/25/25 omeprazole 40 mg capsule,delayed 20 mg PO BID 01/29/24 03/25/25 release acetaminophen 500 mg tablet 1,000 mg PO Q8H PRN PRN 10/14/24 03/25/25 (Tylenol Extra Strength) furosemide 40 mg tablet 80 mg PO BID 10/14/24 03/25/25 carvedilol 12.5 mg tablet 12.5 mg PO BID 03/09/25 03/25/25 cholecalciferol (vitamin D3) 1 cap PO DAILY 03/09/25 03/25/25 losartan 100 mg tablet 100 mg PO DAILY 03/09/25 03/25/25 oxycodone 5 mg tablet 5 mg PO BID PRN pain #7 tabs 03/09/25 03/25/25 sevelamer carbonate 800 mg tablet 1,600 mg PO TID 03/09/25 03/25/25 tamsulosin 0.4 mg capsule 0.4 mg PO DAILY 03/09/25 03/25/25 vitamin B complex 1 tab PO DAILY 03/09/25 03/25/25 ondansetron 8 mg disintegrating 8 mg PO BID PRN 03/24/25 03/25/25 tablet Previous Rx's Medication Instructions Recorded triamcinolone acetonide 0.1 % 1 applic topical BID PRN ankle 01/16/22 topical cream eczema #30 grams oxycodone 5 mg tablet 5 mg PO BID PRN pain #7 tabs 03/09/25 Allergies Allergy/AdvReac Type Severity Reaction Status Date / Time morphine Allergy Intermediate HIVES/RASH Verified 03/25/25 15:38 Cephalosporins Allergy Itching Verified 03/25/25 15:38 empagliflozin (From AdvReac Intermediate Other (See Verified 03/25/25 15:38 Jardiance) Comment) General Stated Complaint: Abd Prob VICTORIA: 3 Exam Const General: cooperative, healthy appearing, comfortable, no acute distress, well developed and well groomed Nutritional Appearance: average body habitus and well nourished Orientation: oriented x3 HENMT Head: normal to inspection Resp Effort & Inspection: normal respiratory effort and able to speak in complete sentences Auscultation: clear to auscultation bilaterally Cardio Rate: regular rate Rhythm: regular rhythm GI Inspection: normal to inspection and non-distended Palpation: soft, not firm, no guarding and nontender General: No CVA tenderness Neuro General: patient alert, patient oriented x3, tone normal and moves all extremities Course Vital Signs Vital signs: Vital Signs Temperature 36.8 C 03/25/25 15:35 Pulse 70 03/25/25 15:35 Respiratory Rate 20 03/25/25 15:35 Blood Pressure 169/86 H 03/25/25 15:35 Pulse Oximetry 92 03/25/25 15:35 Temperature 36.8 C 03/25/25 15:35 Pulse 70 03/25/25 15:35 Respiratory Rate 20 03/25/25 15:35 Blood Pressure 169/86 H 03/25/25 15:35 Blood Pressure Position Sitting 03/25/25 15:35 Pulse Oximetry 92 03/25/25 15:35 Oxygen Delivery Method Room Air 03/25/25 15:35 Oxygen Flow Rate 0 03/25/25 15:35 Medical Decision Making Mathew is a 69 year old male who presents to the emergency department today for evaluation of persistent nausea/dry heaving, worsened over the last 4 days. Has recently been seen in the emergency department multiple times for similar complaints, most recently yesterday, at which time he received ultrasound of abdomen and CT abdomen/pelvis. There is a 7 mm gallstone noted in the gallbladder neck, no signs of pericholecystic fluid or gallbladder wall edema. Physical exam reassuring. Patient is alert and oriented, no acute distress. Normal heart sounds, regular rate and rhythm. Easy work of breathing, lung sounds clear bilaterally. No CVA tenderness. Abdomen soft, nondistended, nontender to palpation. Moist mucous membranes. D/dx includes but is not limited to: Symptomatic anemia, ACS/cardiac arrhythmia, electrolyte abnormality, pancreatitis/cholecystitis, gastritis, EtOH, opioid withdrawal, gastroparesis, biliary colic, UTI disease, thyroid dysfunction I independently interpreted the following tests: CBC and CMP unremarkable, no significant change from baseline. Lipase, mag, EtOH all reassuring. UA not consistent with UTI. Troponin 24 > 22. Overall workup today reassuring. Unclear etiology of nausea. I do not feel additional imaging is indicated at this time, as patient reports symptoms are unchanged from yesterday. He does have a PCP visit scheduled for tomorrow at 8 AM. Recommend close follow-up with PCP and outpatient evaluation as needed. Recommend continued use of Zofran for nausea; I am reluctant to change his antiemetic today due to end-stage renal disease and need for renal dosing. Recommend discussion with PCP to discuss if another antiemetic would be preferable. Reviewed discharge instructions with patient, including symptomatic management and red flags indicating need for return to emergency care [facility] All Active Problems (Updated 03/25/25 @ 17:47 by Rebeca Sam) Nausea (Acute) Dilated cbd, acquired (Acute) Abdominal pain (Acute) Cholelithiasis (Acute) Hyperkalemia (Acute) Lumbago with sciatica, left side (Acute) Advanced care planning/counseling discussion (Acute) End stage renal disease (Acute) Fistula placed July 2024 ON transplant list September 2024 [facility] Alcohol abuse, in remission (Acute) Rotator cuff tear arthropathy of left shoulder (Acute) Rotator cuff tear arthropathy of right shoulder (Acute) Nailbed laceration, finger (Acute) Fracture of distal phalanx of left middle finger (Acute 09/30/23) Pain, foot (Acute) Hammertoe (Acute) Hallux rigidus (Acute) Leg cramps (Acute) Hand or foot spasms (Acute) Obstructive sleep apnea (Chronic) CPAP Diverticulitis (Chronic) about 2004 .[facility] emergent with partial resection with colostomy colostomy reversed later that year no problems since Essential hypertension (Acute) 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 This did resolve with conservative care did not require any further immediate intervention, hospitalized at [facility] Gallstone (Acute) Chronic alcoholic pancreatitis (Acute) Ruptured extensor tendon of hand or wrist (Acute) EPL left thumb Anemia in chronic kidney disease (CKD) (Acute) Lumbar spondylosis (Chronic) Reflux esophagitis (Chronic 09/24/95) GERD in excess of 20 years. on PPI that entire time ?esophageal stricture hx of Barretts Hyperlipidemia (Chronic) Medical History (Updated 03/25/25 @ 17:47 by Rebeca Sam) Systolic murmur Fatigue End stage renal failure on dialysis Anemia of chronic renal failure Chronic bilateral low back pain Vitamin D deficiency Gastritis Exocrine pancreatic insufficiency Thoracic arthritis Palliative care encounter Alcohol abuse recurrent, hospitalized 2020 Acute kidney injury 10/2021-associated with acute illness/dehydration Chronic kidney disease, stage 4 (severe) 2021, Cr -2.1-2.9 History of basal cell cancer (~06/2019) Left ear Gout Surgical History H/O partial resection of colon s/p ostomy reversal Replacement of total knee joint 2012-RIGHT STRESS TEST (~01/2003) Family History Mother Breast cancer Father Heart disease Hyperlipidemia Sister Alcohol abuse Depression Sister Alcohol abuse Sister No problems noted. Brother Hyperlipidemia Brother No problems noted. Brother No problems noted. Brother No problems noted. Brother No problems noted. Maternal Grandfather No problems noted. Paternal Grandfather Alcohol abuse Hyperlipidemia Maternal Grandmother Alcohol abuse Paternal Grandmother Hyperlipidemia Stroke Son Testicular cancer Son No problems noted. Son No problems noted. Son No problems noted. Social History Smoking/Tobacco Use Status: Former Tobacco Use tobacco type: cigarettes Quit Date: 05/27/73 Second Hand Exposure: No Smoking risk assessment performed?: Yes Alcohol Intake: former Counseling given: Yes Drug use: Never Substance use type: does not use Details: no longer drinks - goes to AA meetings Household members: spouse Housing: house Communication Needs: Hard of Hearing current occupation: [employer] Pets and animals: Yes Pets and animals: dog(s) Duration: > 90 minutes/day Frequency: daily Hoa/Orthodoxy: [employer] Special hoa needs: No Do you feel safe at home: Yes Do you feel safe in your relationship?: Yes
[2025-03-25 15:58] VITALS: BP 169/86; PULSE 70; RESP 20; TEMP 36.8; O2SAT 92
--- NOTE | 2025-03-25 16:00 | RT.EKG_ITS ---
APPROVED REPORT Exam: Resting ECG Reason for Exam: nausea/dry heaving Patient Location: E HR:74 bpm ECG Measurements Heart Rate 74 AXIS AR 179 P 52 QRSd 108 QRS -21 QT 394 T 24 QTc 438 Conclusion Sinus rhythm...normal P axis, V-rate 60- 99
[2025-03-25 16:26] LABS: Abs Immature Grans 0.01 10^3/uL (0.0-0.06); HCT 31.7 % (40.0-50.0); HGB 10.4 g/dL (13.5-17.5); Immature Grans % 0.1 %; MCH 31.5 pg (27.0-33.0); MCHC 32.8 % (32.0-36.0); MCV 96 fL (80-95); MPV 9.9 fL (8.0-11.0); Platelet Count 158 10^3/uL (130-400); RBC 3.30 10^6/uL (4.36-5.78); RDW 13.3 % (11.8-14.1); RDW-SD 47.5 fL; WBC 6.89 10^3/uL (4.4-10.8)
[2025-03-25 16:45] LABS: Glucose 100 mg/dL (Negative)
[2025-03-25 16:50] LABS: C & S Indicated? No
[2025-03-25 16:57] LABS: ALT 17 U/L (16-63); AST 9 U/L (15-37); Albumin 4.0 g/dL (3.4-5.0); Alkaline Phosphatase 62 U/L (46-116); Anion Gap 9.8 mmol/L (3-11); BUN 33 mg/dL (7-18); Bilirubin, Total 0.4 mg/dL (0.2-1.0); CO2 34.2 mmol/L (21.0-32.0); Calcium 8.8 mg/dL (8.5-10.1); Chloride 94 mmol/L (98-107); Glucose 85 mg/dL (74-106); Lipase 73 U/L (<78); Magnesium 2.3 mg/dL (1.8-2.4); Potassium 4.9 mmol/L (3.5-5.1); Sodium 138 mmol/L (136-145); Total Protein 7.9 g/dL (6.4-8.2); Troponin I 24 ng/L (<or=76)
[2025-03-25 17:23] VITALS: BP 183/86; PULSE 69; RESP 18; O2SAT 98
[2025-03-25 17:44] LABS: Troponin I 22 ng/L (<or=76)
[2025-03-25 18:10] VITALS: BP 173/86; PULSE 72; RESP 18; O2SAT 97
== END 2025-03-25 18:11 | disposition home or self-care (01) ==
PROVIDERS: Emergency Provider Nurse Practitioner Family; PCP Student in an Organized Health Care Education/Training Program
DX: R11.0 Nausea (principal); R10.10 Upper abdominal pain, unspecified; R19.8 Other specified symptoms and signs involving the digestive system and abdomen
CPT/HCPCS: 99283; 99284; 36415; 80053; 83690; 93005; 80320; 81003; 81015; 83735; 84484; 85025; 93010

== ENCOUNTER 2025-04-05 04:22 | Emergency (ER) | payer MEDICARE, SELFPAY ==
[2025-04-05] VITALS (127 sets, daily range): BP systolic 146–224; BP diastolic 60–104; PULSE 61–87; RESP 8–26; TEMP 36.5–36.7; O2SAT 77–99
--- NOTE | 2025-04-05 04:15 | RT.EKG_ITS ---
APPROVED REPORT Exam: Resting ECG Reason for Exam: SOB Patient Location: E HR:81 bpm ECG Measurements Heart Rate 81 AXIS NM 182 P 44 QRSd 109 QRS -31 QT 395 T 41 QTc 459 Conclusion Sinus rhythm...normal P axis, V-rate 60- 99 Inferolateral infarct, old...Q >40mS, inf-lat leads Physician: peaked t waves, no stemi
--- NOTE | 2025-04-05 04:30 | DI.RAD_ITS ---
Exam(s) XR PORTABLE CHEST AP EXAM: XR PORTABLE CHEST AP CLINICAL HISTORY: SOB. TECHNIQUE: 2D digital imaging was performed. COMPARISON: CR XR CHEST 2V PA LATERAL from 12/20/[address] ABDOMEN PELVIS WO from 03/24/2025 FINDINGS: Single AP portable view. There is a right supraclavicular double lumen catheter with distal tip in the upper right atrium. Cardiomegaly again noted. The mediastinum is not widened Bilateral interstitial pulmonary edema in slight blunting of the right costophrenic angle indicating small right pleural effusion. IMPRESSION: Interstitial pulmonary edema. Small right pleural effusion.Right-sided double lumen catheter possibly dialysis catheter. DATA REPOSITORY: RADIATION DOSE DELIVERED:
[2025-04-05] MEDS: Furosemide 40 MG/4 ML VIAL IVP ×2 (04:40→05:20)
[2025-04-05 04:42] LABS: BE (Venous) 4 mmol/L (-2-3); HCO3 (Venous) 28 mmol/L (23-28); O2 Sat (Venous) 65 %; TCO2 (Venous) 27 mmol/L (24-29); pCO2 (Venous) 41 mmHg (41-51); pO2 (Venous) 36 mmHg
[2025-04-05 04:43] LABS: Abs Immature Grans 0.03 10^3/uL (0.0-0.06); HCT 27.6 % (40.0-50.0); HGB 9.2 g/dL (13.5-17.5); Immature Grans % 0.4 %; MCH 31.4 pg (27.0-33.0); MCHC 33.3 % (32.0-36.0); MCV 94 fL (80-95); MPV 10.1 fL (8.0-11.0); Platelet Count 169 10^3/uL (130-400); RBC 2.93 10^6/uL (4.36-5.78); RDW 13.3 % (11.8-14.1); RDW-SD 46.0 fL; WBC 7.49 10^3/uL (4.4-10.8)
[2025-04-05 05:00] LABS: INR 1.0 (0.9-1.1); PTT Activated 27.4 sec (20.6-30.2); Prothrombin Time 10.0 sec (9.1-11.1)
--- NOTE | 2025-04-05 05:02 | W.ED.GENAD ---
Discharge Plan Disposition Patient Disposition: Transfer-Acute Inpatient Care Specific Acute Inpt Facility: [facility] Condition: Serious Discharge Details Clinical Impression: Flash pulmonary edema, Acute hypoxic respiratory failure, Hypertensive emergency, Acute on chronic kidney failure, Acute hyperkalemia Primary Care Provider: Govind Mendes ED Provider: Car Sauceda Home Meds and New Rx's Prescriptions: No Action triamcinolone acetonide 0.1 % cream 1 applic topical BID PRN (Reason: ankle eczema) Qty: 30 1RF omeprazole 40 mg capsule,delayed release(DR/EC) 20 mg PO BID furosemide 40 mg tablet 80 mg PO BID acetaminophen [Tylenol Extra Strength] 500 mg tablet 1,000 mg PO Q8H PRN PRN amlodipine 2.5 mg tablet 5 mg PO DAILY carvedilol 12.5 mg tablet 12.5 mg PO BID Patient Comments: TAKE ONE TABLET BY MOUTH TWICE A DAY WITH MEALS losartan 100 mg tablet 100 mg PO DAILY Patient Comments: TAKE ONE TABLET BY MOUTH EVERY DAY sevelamer carbonate 800 mg tablet 1,600 mg PO TID Patient Comments: TAKE 2 TABLETS BY MOUTH THREE TIMES DAILY WITH MEALS AND TAKE 1 TABLET DAILY WITH A SNACK tamsulosin 0.4 mg capsule 0.4 mg PO DAILY Patient Comments: TAKE ONE CAPSULE BY MOUTH EVERY DAY vitamin B complex Tablet 1 tab PO DAILY cholecalciferol (vitamin D3) 1 cap PO DAILY oxycodone 5 mg tablet 5 mg PO BID PRN (Reason: pain) Qty: 7 0RF Rx Instructions: Take one tablet by mouth twice daily as needed for moderate to severe pain ondansetron 8 mg tablet,disintegrating 8 mg PO BID PRN Patient Comments: DISSOLVE ONE TABLET ON THE TONGUE TWICE A DAY NEEDED FOR NAUSEA haloperidol 0.5 mg tablet 0.5 mg PO TID PRN Patient Comments: TAKE ONE TABLET BY MOUTH THREE TIMES A DAY NEEDED HPI General Date/Time Provider Initiated Documentation: 04/05/25 04:24. HPI Narrative: This is a 70-year-old male with a past medical history of renal failure dialysis on Saturday, hypertension, gallstones, high cholesterol, who still does urinate, presents today for evaluation of shortness of breath. Patient states that he woke up at 11 PM and felt notably short of breath, he had some mild chest heaviness. This continued throughout the night and continued to get worse. Eventually patient came in at around 5 AM for further management. He does not smoke, he denies any history of COPD. He denies any pleuritic chest pain, recent long trips, surgeries, or procedures. He denies history of blood clots. He denies history of heart attacks. No other complaints at this time. He denies any excessive salty foods or change in diet recently. Related Data Home Medications Medication Instructions Recorded Confirmed triamcinolone acetonide 0.1 % 1 applic topical BID PRN ankle 01/16/22 04/05/25 topical cream eczema #30 grams amlodipine 2.5 mg tablet 5 mg PO DAILY 10/09/23 04/05/25 omeprazole 40 mg capsule,delayed 20 mg PO BID 01/29/24 04/05/25 release acetaminophen 500 mg tablet 1,000 mg PO Q8H PRN PRN 10/14/24 04/05/25 (Tylenol Extra Strength) furosemide 40 mg tablet 80 mg PO BID 10/14/24 04/05/25 Held on 04/05/25. Instructions: Prescription Finished carvedilol 12.5 mg tablet 12.5 mg PO BID 03/09/25 04/05/25 cholecalciferol (vitamin D3) 1 cap PO DAILY 03/09/25 04/05/25 losartan 100 mg tablet 100 mg PO DAILY 03/09/25 04/05/25 oxycodone 5 mg tablet 5 mg PO BID PRN pain #7 tabs 03/09/25 04/05/25 sevelamer carbonate 800 mg tablet 1,600 mg PO TID 03/09/25 04/05/25 Held on 04/05/25. Instructions: Prescription Finished tamsulosin 0.4 mg capsule 0.4 mg PO DAILY 03/09/25 04/05/25 vitamin B complex 1 tab PO DAILY 03/09/25 04/05/25 ondansetron 8 mg disintegrating 8 mg PO BID PRN 03/24/25 04/05/25 tablet haloperidol 0.5 mg tablet 0.5 mg PO TID PRN 04/05/25 04/05/25 Previous Rx's Medication Instructions Recorded triamcinolone acetonide 0.1 % 1 applic topical BID PRN ankle 01/16/22 topical cream eczema #30 grams oxycodone 5 mg tablet 5 mg PO BID PRN pain #7 tabs 03/09/25 Allergies Allergy/AdvReac Type Severity Reaction Status Date / Time morphine Allergy Intermediate HIVES/RASH Verified 04/05/25 04:33 Cephalosporins Allergy Itching Verified 04/05/25 04:33 empagliflozin (From AdvReac Intermediate Other (See Verified 04/05/25 04:33 Jardiance) Comment) General Stated Complaint: RespSymp VICTORIA: 3 Exam Narrative Exam Narrative: 1.Const: Well-nourished, Well-developed, appearing stated age 2.Eyes: PERRL, no conjunctival injection, and symmetrical lids. 3.ENT: Atraumatic external nose and ears. Moist MM. Neck: Symmetric, trachea midline, No thyromegaly. 4.CVS: +S1/S2, Peripheral pulses 2+ and equal in all extremities. Brisk capillary refill in all extremities. 5.RESP: Diffuse crackles throughout, no wheezes or rhonchi 6.GI: Soft, Nontender/Nondistended, No hepatosplenomegaly. No guarding or rebound. 7.MSK: Normocephalic/Atraumatic, Extremities w/o deformity or ttp No cyanosis or clubbing, Normal movement of all extremities. +1 pitting edema in the lower extremities 8.Skin: Warm, Dry. No rashes or lesions. 9.Neuro: date pitter II-XII grossly intact. Sensation grossly intact, no focal neurologic deficits. 10.Psych: (AAO) x3. Appropriate mood and affect Course Vital Signs Vital signs: Vital Signs Temperature 36.7 C 04/05/25 04:26 Pulse 84 04/05/25 04:26 Respiratory Rate 25 H 04/05/25 04:26 Blood Pressure 224/104 H 04/05/25 04:26 Pulse Oximetry 77 L 04/05/25 04:26 Temperature 36.5 C 04/05/25 04:30 Temperature Source Oral 04/05/25 04:30 Pulse 82 04/05/25 05:00 Pulse 82 04/05/25 04:41 Respiratory Rate 18 04/05/25 05:00 Respiratory Effort Short of Breath, Labored, Pursed Lip, Incrsd Work of Breathing 04/05/25 04:30 Respiratory Depth Normal 04/05/25 04:30 Blood Pressure 202/97 H 04/05/25 04:46 Blood Pressure Mean 134 04/05/25 04:46 Blood Pressure Position Sitting 04/05/25 04:26 Pulse Oximetry 92 04/05/25 05:00 Oxygen Delivery Method Nasal Cannula 04/05/25 04:30 Oxygen Flow Rate 0 04/05/25 04:26 Pain Level 0 04/05/25 04:30 Comment SpO2 to 93% ON 2LPM VIA NC 04/05/25 04:26 Lab/Test Results Lab/Test Results: Laboratory Tests Range/Units 04/05/25 04/05/25 04:34 04:44 WBC (4.4-10.8) 10^3/uL 7.49 RBC (4.36-5.78) 10^6/uL 2.93 L Hgb (13.5-17.5) g/dL 9.2 L Hct (40.0-50.0) % 27.6 L MCV (80-95) fL 94 MCH (27.0-33.0) pg 31.4 MCHC (32.0-36.0) % 33.3 RDW (11.8-14.1) % 13.3 Plt Count (130-400) 10^3/uL 169 MPV (8.0-11.0) fL 10.1 Immature Gran % % 0.4 Neutrophils % % 68.4 Lymphocytes % % 12.8 Monocytes % % 9.3 Eosinophils % % 8.3 Basophils % % 0.8 Nucleated RBC % (0.0-0.3) % 0.0 Absolute Neutrophils (1.2-6.7) 10^3/uL 5.12 Absolute Lymphocytes (1.2-3.4) 10^3/uL 0.96 L Absolute Monocytes (0.1-0.8) 10^3/uL 0.70 Absolute Eosinophils (0.0-0.7) 10^3/uL 0.62 Absolute Basophils (0.0-0.2) 10^3/uL 0.06 PT (9.1-11.1) sec 10.0 INR (0.9-1.1) 1.0 APTT (20.6-30.2) sec 27.4 VBG pH (7.31-7.41) 7.44 H VBG pCO2 (41-51) mmHg 41 VBG pO2 mmHg 36 VBG HCO3 (23-28) mmol/L 28 VBG Total CO2 (24-29) mmol/L 27 VBG O2 Saturation % 65 VBG Base Excess (-2-3) mmol/L 4 H COVID-19 Source Nasal/Nares Medical Decision Making This is a 70-year-old male with a past medical history of renal failure dialysis on Saturday, hypertension, gallstones, high cholesterol, who still does urinate, presents today for evaluation of shortness of breath. Patient states that he woke up at 11 PM and felt notably short of breath, he had some mild chest heaviness. This continued throughout the night and continued to get worse. Eventually patient came in at around 5 AM for further management. He does not smoke, he denies any history of COPD. He denies any pleuritic chest pain, recent long trips, surgeries, or procedures. He denies history of blood clots. He denies history of heart attacks. No other complaints at this time. He denies any excessive salty foods or change in diet recently. Exam demonstrates +1 pitting edema in lower extremities, crackles throughout all lung lal. Patient is hypoxic at around 75%, patient was started on 4 to 6 L supplemental oxygen came up to the low 90s. Differential is highest for flash pulmonary edema and congestive heart failure. Bedside echo demonstrates reasonable contractility, dilated right ventricle as well. Patient does still urinate, we will give 80 of Lasix, he is notably hypertensive in the 220s systolic, so we will start a nitro drip for the flash pulmonary edema and hypertensive emergency. Will get a chest x-ray, monitor closely and reassess. 7 AM Chest x-ray showed evidence of notable pulmonary edema throughout, patient remained needed significant supplemental oxygen. Patient was started on BiPAP. Nitro drip was increased to 150 for blood pressure titrated to around 150 systolic. Patient has not had any urinary output, EKG shows notable peaking of T waves, laboratory workup shows minimally elevated potassium at 5.2, however with the peaking of T waves I do feel that treatment is indicated as there is an EKG change. Patient was given 5 of insulin, dextrose, calcium gluconate and albuterol treatment. Patient tolerated this well. Patient labs demonstrates proBNP greater than 35,000, troponin stable, creatinine is elevated at 9.5, and pH is 7.44. Unfortunately patient is not appropriate for discharge, and does need emergent dialysis secondary to his hypertensive emergency, flash pulmonary edema, and current respiratory status. We did contact [facility], and I spoke with Dr. Boone, and he accepts the patient for transfer to the ICU. Patient will be under accepting physician Dr. Jim. We will facilitate soil surveyor level transport. I have extensively reviewed the treatment plan with the patient. I have addressed all patient concerns at this time. I have also discussed the plan with the admitting physician and they agree with the current assessment and plan and have agreed to assume responsibility for the patient. All parties demonstrate verbal understanding and agreement with our assessment and plan at this time. The documentation in this chart was dictated using Skimlinks dictation software. Please excuse any dictation errors. At time of transfer the patient was reassessed and continued to demonstrate No signs of acute respiratory distress requiring intubation, hemodynamic instability requiring pressor support, or rapidly declining mental status. FINDINGS: Tubes, catheters and devices: Next intravenous catheter. Lungs: Diffusely increased pulmonary markings. Bibasilar opacities. Pleural spaces: No large pleural effusion seen. Heart/Mediastinum: Enlarged cardiac silhouette. Bones/joints: Right rib deformities. IMPRESSION: Diffusely increased pulmonary markings. Consider edema, infection. Bibasilar opacities. Consider infection, atelectasis, edema. Follow-up as clinically warranted. Thank you for allowing us to participate in the care of your patient. Dictated and Authenticated by: Kenia Gillette MD 04/05/2025 5:19 AM Eastern Time ([place] & [place]) Critical Care Time Critical Care Time Critical Care Time: Yes Total Critical Care Time: 45 Attestation: Upon my evaluation, this patient had a high probability of imminent or life-threatening deterioration, which required my direct attention, intervention, and personal management. I have personally provided 45 minutes of critical care time exclusive of time spent on separately billable procedures. Time includes review of laboratory data, radiology results, discussion with consultants, and monitoring for potential decompensation. Interventions were performed as documented. [facility] All Active Problems (Updated 04/05/25 @ 07:04 by Car Sauceda DO) Acute hyperkalemia (Acute) Acute on chronic kidney failure (Acute) Hypertensive emergency (Acute) Acute hypoxic respiratory failure (Acute) Flash pulmonary edema (Acute) Nausea (Acute) Dilated cbd, acquired (Acute) Abdominal pain (Acute) Cholelithiasis (Acute) Hyperkalemia (Acute) Lumbago with sciatica, left side (Acute) Advanced care planning/counseling discussion (Acute) End stage renal disease (Acute) Fistula placed July 2024 [place] transplant list [place] [facility] [place] abuse, in remission (Acute) Rotator cuff tear arthropathy of left shoulder (Acute) Rotator cuff tear arthropathy of right shoulder (Acute) Nailbed laceration, finger (Acute) Fracture of distal phalanx of left middle finger (Acute 09/30/23) Pain, foot (Acute) Hammertoe (Acute) Hallux rigidus (Acute) Leg cramps (Acute) Hand or foot spasms (Acute) Obstructive sleep apnea (Chronic) CPAP Diverticulitis (Chronic) about 2004 [place] [place] with colostomy colostomy reversed later that year no problems since Essential hypertension (Acute) 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 This did resolve with conservative care did not require any further immediate intervention, hospitalized at [facility] (Acute) Chronic alcoholic pancreatitis (Acute) Ruptured extensor tendon of hand or wrist (Acute) EPL left thumb Anemia in chronic kidney disease (CKD) (Acute) Lumbar spondylosis (Chronic) Reflux esophagitis (Chronic 09/24/95) GERD in excess of 20 years. on PPI that entire time ?esophageal stricture hx of Barretts Hyperlipidemia (Chronic) Medical History (Updated 04/05/25 @ 07:04 by Car Sauceda DO) Systolic murmur Fatigue End stage renal failure on dialysis Anemia of chronic renal failure Chronic bilateral low back pain Vitamin D deficiency Gastritis Exocrine pancreatic insufficiency Thoracic arthritis Palliative care encounter Alcohol abuse recurrent, hospitalized 2020 Acute kidney injury 10/2021-associated with acute illness/dehydration Chronic kidney disease, stage 4 (severe) 2021, Cr -2.1-2.9 History of basal cell cancer (~06/2019) Left ear Gout Surgical History H/O partial resection of colon s/p ostomy reversal Replacement of total knee joint 2012-RIGHT STRESS TEST (~01/2003) Family History Mother Breast cancer Father Heart disease Hyperlipidemia Sister Alcohol abuse Depression Sister Alcohol abuse Sister No problems noted. Brother Hyperlipidemia Brother No problems noted. Brother No problems noted. Brother No problems noted. Brother No problems noted. Maternal Grandfather No problems noted. Paternal Grandfather Alcohol abuse Hyperlipidemia Maternal Grandmother Alcohol abuse Paternal Grandmother Hyperlipidemia Stroke Son Testicular cancer Son No problems noted. Son No problems noted. Son No problems noted. Social History Smoking/Tobacco Use Status: Former Tobacco Use tobacco type: cigarettes Quit Date: 05/27/73 Second Hand Exposure: No Smoking risk assessment performed?: Yes Alcohol Intake: former Counseling given: Yes Drug use: Never Substance use type: does not use Details: no longer drinks - goes to AA meetings Household members: spouse Housing: house Communication Needs: Hard of Hearing current occupation: [employer] Pets and animals: Yes Pets and animals: dog(s) Duration: > 90 minutes/day Frequency: daily Hoa/Quaker: Scientologist Special hoa needs: No Do you feel safe at home: Yes Do you feel safe in your relationship?: Yes POCUS Exam (ED) Limited Cardiac Exam DATE OF EXAM: 04/05/25 TIME OF EXAM: 05:39 PROVIDER THAT PERFORMED THE STUDY: Cra Sauceda IS THIS A REPEAT EXAM DURING THIS ENCOUNTER: no REASON FOR EXAM: Dyspnea VISUALIZED STRUCTURES: Left atrium, Left ventricle and Right ventricle VIEW OBTAINED: Parasternal long-axis PERTINENT FINDINGS/IMPRESSION: LV dysfunction :mild and RV dilation Exam complete
[2025-04-05] MEDS: nitroGLYcerin in D5W 50 MG/250 ML BTL 30 MG IV (05:07)
--- NOTE | 2025-04-05 05:20 | DI.[facility]_ITS ---
PROCEDURE INFORMATION: Exam: XR Chest Exam date and time: 04/05/2025 5:05 AM Age: 70 years old Clinical indication: Shortness of breath; Prior surgery; Surgery date: 1-6 months; Surgery type: Dialysis port; SOB TECHNIQUE: Imaging protocol: Radiologic exam of the chest. Views: 1 view. COMPARISON: CT CHEST/ABD/PEL WO 03/14/2025 6:49 PM FINDINGS: Tubes, catheters and devices: Next intravenous catheter. Lungs: Diffusely increased pulmonary markings. Bibasilar opacities. Pleural spaces: No large pleural effusion seen. Heart/Mediastinum: Enlarged cardiac silhouette. Bones/joints: Right rib deformities. IMPRESSION: Diffusely increased pulmonary markings. Consider edema, infection. Bibasilar opacities. Consider infection, atelectasis, edema. Follow-up as clinically warranted. Dictated and Authenticated by: Kenia Gillette MD. Orderin Komal Yoon MD
[2025-04-05 05:29] LABS: COVID-19 PCR Negative (Negative)
[2025-04-05 05:33] LABS: ALT 15 U/L (16-63); AST 8 U/L (15-37); Albumin 3.8 g/dL (3.4-5.0); Alkaline Phosphatase 57 U/L (46-116); Anion Gap 18.2 mmol/L (3-11); BUN 71 mg/dL (7-18); Bilirubin, Total 0.4 mg/dL (0.2-1.0); CO2 27.8 mmol/L (21.0-32.0); Calcium 8.2 mg/dL (8.5-10.1); Chloride 90 mmol/L (98-107); Glucose 92 mg/dL (74-106); Potassium 5.2 mmol/L (3.5-5.1); Sodium 136 mmol/L (136-145); Total Protein 7.2 g/dL (6.4-8.2); Troponin I 36 ng/L (<or=76)
[2025-04-05] MEDS: Albuterol 2.5 MG/3 ML INH SOLN VIAL 5 MG UPD (05:54)
[2025-04-05] MEDS: Calcium Gluconate 1,000 MG/10 ML VIAL 1000 MG IVP (05:54)
[2025-04-05] MEDS: Insulin REGULAR-Human 100 UNITS/ML UNIT IV (05:55)
[2025-04-05] MEDS: Dextrose 50%-Water 25 GM/50 ML SYR IVP (05:55)
[2025-04-05 05:56] LABS: Troponin I 31 ng/L (<or=76)
[2025-04-05 07:52] LABS: Troponin I 31 ng/L (<or=76)
[2025-04-05 08:18] LABS: COVID-19 PCR Negative (Negative); RSV PCR Negative (Negative)
--- NOTE | 2025-04-09 08:58 | ED.PROG_ITS ---
Date of service: 04/05/25 Time of Service: 09:00 Medical Decision Making Care was signed out by Dr. Sauceda, please see his documentation regarding initial ED presentation course. Plan at signout: Patient accepted in transfer to tertiary care facility, awaiting bed availability and transportation. No active issues or pending diagnostics for follow-up. Discharge Plan Disposition Patient Disposition: Transfer-Acute Inpatient Care Specific Acute Inpt Facility: [facility] Condition: Serious Discharge Details Clinical Impression: Flash pulmonary edema, Acute hypoxic respiratory failure, Hypertensive emergency, Acute on chronic kidney failure, Acute hyperkalemia Primary Care Provider: Govind Mendes ED Provider: Dennis Stuart Home Meds and New Rx's Prescriptions: No Action triamcinolone acetonide 0.1 % cream 1 applic topical BID PRN (Reason: ankle eczema) Qty: 30 1RF omeprazole 40 mg capsule,delayed release(DR/EC) 20 mg PO BID furosemide 40 mg tablet 80 mg PO BID acetaminophen [Tylenol Extra Strength] 500 mg tablet 1,000 mg PO Q8H PRN PRN amlodipine 2.5 mg tablet 5 mg PO DAILY carvedilol 12.5 mg tablet 12.5 mg PO BID Patient Comments: TAKE ONE TABLET BY MOUTH TWICE A DAY WITH MEALS losartan 100 mg tablet 100 mg PO DAILY Patient Comments: TAKE ONE TABLET BY MOUTH EVERY DAY sevelamer carbonate 800 mg tablet 1,600 mg PO TID Patient Comments: TAKE 2 TABLETS BY MOUTH THREE TIMES DAILY WITH MEALS AND TAKE 1 TABLET DAILY WITH A SNACK tamsulosin 0.4 mg capsule 0.4 mg PO DAILY Patient Comments: TAKE ONE CAPSULE BY MOUTH EVERY DAY vitamin B complex Tablet 1 tab PO DAILY cholecalciferol (vitamin D3) 1 cap PO DAILY oxycodone 5 mg tablet 5 mg PO BID PRN (Reason: pain) Qty: 7 0RF Rx Instructions: Take one tablet by mouth twice daily as needed for moderate to severe pain ondansetron 8 mg tablet,disintegrating 8 mg PO BID PRN Patient Comments: DISSOLVE ONE TABLET ON THE TONGUE TWICE A DAY NEEDED FOR NAUSEA haloperidol 0.5 mg tablet 0.5 mg PO TID PRN Patient Comments: TAKE ONE TABLET BY MOUTH THREE TIMES A DAY NEEDED Discharge Data Discharge Date/Time-TO BE ENTERED AT DEPARTURE: 04/05/25 08:24
== END 2025-04-05 08:24 | disposition short-term general hospital (02) ==
PROVIDERS: Student in an Organized Health Care Education/Training Program; Emergency Provider Student in an Organized Health Care Education/Training Program; PCP Student in an Organized Health Care Education/Training Program
DX: J96.01 Acute respiratory failure with hypoxia (principal); I16.1 Hypertensive emergency; J81.0 Acute pulmonary edema; N17.9 Acute kidney failure, unspecified; N18.9 Chronic kidney disease, unspecified; E87.5 Hyperkalemia
CPT/HCPCS: 00123; 36415; 36416; 80053; 82805; 82962; 87635; 87637; 93005; 93308; 94640; 96365; 96375; 96376; 99291; 71045; 83880; 84484; 85025; 85610; 85730; 93010; J0612; J1815; J1938; J2305; J7613

== ENCOUNTER 2025-04-14 10:43 | Outpatient (REF) | payer MEDICARE, SELFPAY ==
[2025-04-14 15:26] LABS: Abs Immature Grans 0.02 10^3/uL (0.0-0.06); HCT 25.9 % (40.0-50.0); HGB 8.4 g/dL (13.5-17.5); Immature Grans % 0.3 %; MCH 31.7 pg (27.0-33.0); MCHC 32.4 % (32.0-36.0); MCV 98 fL (80-95); MPV 10.7 fL (8.0-11.0); Platelet Count 195 10^3/uL (130-400); RBC 2.65 10^6/uL (4.36-5.78); RDW 15.0 % (11.8-14.1); RDW-SD 50.7 fL; WBC 7.20 10^3/uL (4.4-10.8)
[2025-04-14 16:04] LABS: Ferritin 572 ng/mL (11-307); TSH 3.22 uIU/mL (0.55-4.78)
[2025-04-14 16:27] LABS: Iron 44 ug/dL (65-175); Total Iron Binding Capacity 265 ug/dL (250-425)
[2025-04-14 17:35] LABS: ALT 18 U/L (10-49); AST 9 U/L (<34); Albumin 4.3 g/dL (3.4-5.0); Alkaline Phosphatase 60 U/L (46-116); Anion Gap 9.6 mmol/L (3-11); BUN 44 mg/dL (9-23); Bilirubin, Total 0.30 mg/dL (0.2-1.2); CO2 32.4 mmol/L (20.0-31.0); Calcium 8.6 mg/dL (8.3-10.6); Chloride 96 mmol/L (98-107); Folate 13.5 ng/mL (>5.38); Glucose 87 mg/dL (74-106); Potassium 5.6 mmol/L (3.5-5.1); Sodium 138 mmol/L (136-145); Total Protein 6.6 g/dL (5.7-8.2); Vitamin B12 600 pg/mL (211-911)
== END 2025-04-14 10:44 | disposition home or self-care (01) ==
LOC: NCHCN 10:43
PROVIDERS: PCP Student in an Organized Health Care Education/Training Program; Visit Provider Student in an Organized Health Care Education/Training Program
DX: D64.9 Anemia, unspecified (principal)
CPT/HCPCS: 80053; 82607; 82728; 82746; 83540; 83550; 84439; 84443; 85025

== ENCOUNTER 2025-04-17 09:15 | Emergency (ER) | payer MEDICARE, SELFPAY ==
[2025-04-17] VITALS (76 sets, daily range): BP systolic 157–191; BP diastolic 71–82; PULSE 0–86; RESP 8–26; TEMP 36.7; O2SAT 91–98
--- NOTE | 2025-04-17 09:15 | RT.EKG_ITS ---
APPROVED REPORT Exam: Resting ECG Reason for Exam: sob Patient Location: E HR:68 bpm ECG Measurements Heart Rate 68 AXIS MA 176 P 24 QRSd 108 QRS -25 QT 419 T 34 QTc 447 Conclusion Sinus rhythm...normal P axis, V-rate 60- 99 Consider inferior infarct...Q >35mS in II III aVF Physician: No stemi, peaked t waves, but unchanged from prior
--- NOTE | 2025-04-17 09:45 | DI.RAD_ITS ---
Exam(s) XR PORTABLE CHEST AP EXAM: XR PORTABLE CHEST AP CLINICAL HISTORY: SOB, suspect CHF TECHNIQUE: 2D digital imaging was performed. COMPARISON: CR XR CHEST 2V PA LATERAL from 12/20/2022 CR,XR XR PORTABLE CHEST AP from 04/05/2025 FINDINGS: Exam is limited by poor pulmonary inflation and under penetration. LUNGS: Bilateral increased interstitial markings and pulmonary vascular prominence consistent with CHF. Question of tiny effusions. HEART: Enlarged, unchanged. AORTA: Normal diameter. BONES: Old right rib fractures. Soft tissues: Dialysis catheter noted. IMPRESSION: Cardiomegaly and CHF. The preliminary [facility] report was reviewed. DATA REPOSITORY: RADIATION DOSE DELIVERED:
[2025-04-17] MEDS: Furosemide 100 MG/10 ML VIAL 80 MG IVP (10:05)
[2025-04-17 10:06] LABS: Abs Immature Grans 0.01 10^3/uL (0.0-0.06); HCT 24.1 % (40.0-50.0); HGB 8.0 g/dL (13.5-17.5); Immature Grans % 0.2 %; MCH 31.5 pg (27.0-33.0); MCHC 33.2 % (32.0-36.0); MCV 95 fL (80-95); MPV 9.9 fL (8.0-11.0); Platelet Count 150 10^3/uL (130-400); RBC 2.54 10^6/uL (4.36-5.78); RDW 14.6 % (11.8-14.1); RDW-SD 49.6 fL; WBC 4.79 10^3/uL (4.4-10.8)
--- NOTE | 2025-04-17 10:16 | W.ED.GENAD ---
Discharge Plan Disposition Patient Disposition: Transfer-Acute Inpatient Care Specific Acute Inpt Facility: [facility] Condition: Stable Discharge Details Clinical Impression: Congestive heart failure, Hypoxemia Primary Care Provider: Govind Mendes ED Provider: Car Sauceda Home Meds and New Rx's Prescriptions: No Action triamcinolone acetonide 0.1 % cream 1 applic topical BID PRN (Reason: ankle eczema) Qty: 30 1RF omeprazole 40 mg capsule,delayed release(DR/EC) 20 mg PO BID furosemide 40 mg tablet 80 mg PO BID acetaminophen [Tylenol Extra Strength] 500 mg tablet 1,000 mg PO Q8H PRN PRN amlodipine 2.5 mg tablet 10 mg PO DAILY carvedilol 12.5 mg tablet 15 mg PO BID Patient Comments: TAKE ONE TABLET BY MOUTH TWICE A DAY WITH MEALS losartan 100 mg tablet 100 mg PO DAILY Patient Comments: TAKE ONE TABLET BY MOUTH EVERY DAY sevelamer carbonate 800 mg tablet 1,600 mg PO TID Patient Comments: TAKE 2 TABLETS BY MOUTH THREE TIMES DAILY WITH MEALS AND TAKE 1 TABLET DAILY WITH A SNACK tamsulosin 0.4 mg capsule 0.4 mg PO DAILY Patient Comments: TAKE ONE CAPSULE BY MOUTH EVERY DAY vitamin B complex Tablet 1 tab PO DAILY cholecalciferol (vitamin D3) 1 cap PO DAILY oxycodone 5 mg tablet 5 mg PO BID PRN (Reason: pain) Qty: 7 0RF Rx Instructions: Take one tablet by mouth twice daily as needed for moderate to severe pain ondansetron 8 mg tablet,disintegrating 8 mg PO BID PRN Patient Comments: DISSOLVE ONE TABLET ON THE TONGUE TWICE A DAY NEEDED FOR NAUSEA haloperidol 0.5 mg tablet 0.5 mg PO TID PRN Patient Comments: TAKE ONE TABLET BY MOUTH THREE TIMES A DAY NEEDED HPI General Date/Time Provider Initiated Documentation: 04/17/25 09:44. HPI Narrative: This is a pleasant 70-year-old male with a past medical history of renal failure currently on dialysis Saturday who still does urinate, hypertension, high cholesterol, previous alcoholism, gastritis, gout, who presents today for shortness of breath. Patient was recently seen and assessed by myself on 04/05/2025 where he had a hypertensive emergency, CHF, and was transferred to [facility]. He received daily dialysis, diuresis, had an increase for his blood pressure control medications and Lasix, was discharged home 8 days ago on 04/09/2025. He had been doing well, he did receive dialysis yesterday, he had his normal 2.4 L taken off (which is the max that he will allow otherwise he gets cramping), however he noticed this morning that he was more short of breath, particularly when he was lying flat, additionally he had significant swelling in his lower extremities, and felt that he was again developing fluid overload. He came to the ER for further assessment. He denies any chest pain. No other complaints. He states that he has been avoiding excessively salty foods. He has been taking his medications as prescribed. No other modifying factors. No chest pain, headache, or other complaint. No cough. He does admit to shortness of breath when he exerts himself as well as when lying back. Related Data Home Medications Medication Instructions Recorded Confirmed triamcinolone acetonide 0.1 % 1 applic topical BID PRN ankle 01/16/22 04/17/25 topical cream eczema #30 grams amlodipine 2.5 mg tablet 10 mg PO DAILY 10/09/23 04/17/25 omeprazole 40 mg capsule,delayed 20 mg PO BID 01/29/24 04/17/25 release acetaminophen 500 mg tablet 1,000 mg PO Q8H PRN PRN 10/14/24 04/17/25 (Tylenol Extra Strength) furosemide 40 mg tablet 80 mg PO BID 10/14/24 04/17/25 carvedilol 12.5 mg tablet 15 mg PO BID 03/09/25 04/17/25 cholecalciferol (vitamin D3) 1 cap PO DAILY 03/09/25 04/17/25 losartan 100 mg tablet 100 mg PO DAILY 03/09/25 04/17/25 oxycodone 5 mg tablet 5 mg PO BID PRN pain #7 tabs 03/09/25 04/17/25 sevelamer carbonate 800 mg tablet 1,600 mg PO TID 03/09/25 04/17/25 tamsulosin 0.4 mg capsule 0.4 mg PO DAILY 03/09/25 04/17/25 vitamin B complex 1 tab PO DAILY 03/09/25 04/17/25 ondansetron 8 mg disintegrating 8 mg PO BID PRN 03/24/25 04/17/25 tablet haloperidol 0.5 mg tablet 0.5 mg PO TID PRN 04/05/25 04/17/25 Previous Rx's Medication Instructions Recorded triamcinolone acetonide 0.1 % 1 applic topical BID PRN ankle 01/16/22 topical cream eczema #30 grams oxycodone 5 mg tablet 5 mg PO BID PRN pain #7 tabs 03/09/25 Allergies Allergy/AdvReac Type Severity Reaction Status Date / Time morphine Allergy Intermediate HIVES/RASH Verified 04/17/25 09:31 Cephalosporins Allergy Itching Verified 04/17/25 09:31 empagliflozin (From AdvReac Intermediate Other (See Verified 04/17/25 09:31 Jardiance) Comment) General Stated Complaint: RespSymp VICTORIA: 3 Exam Narrative Exam Narrative: 1.Const: Well-nourished, Well-developed, appearing stated age 2.Eyes: PERRL, no conjunctival injection, and symmetrical lids. 3.ENT: Atraumatic external nose and ears. Moist MM. Neck: Symmetric, trachea midline, No thyromegaly. 4.CVS: +S1/S2, Peripheral pulses 2+ and equal in all extremities. Brisk capillary refill in all extremities. 5.RESP: Unlabored respiratory effort. No wheezes or rhonchi, however mild crackles are noted in the bases. 6.GI: Soft, Nontender/Nondistended, No hepatosplenomegaly. No guarding or rebound. 7.MSK: Normocephalic/Atraumatic, Extremities w/o deformity or ttp No cyanosis or clubbing, Normal movement of all extremities. No calf tenderness, but +2.5 pitting edema on the right and +2 pitting edema on the left. 8.Skin: Warm, Dry. No rashes or lesions. 9.Neuro: heater furnace II-XII grossly intact. Sensation grossly intact, no focal neurologic deficits. 10.Psych: (AAO) x3. Appropriate mood and affect Course Vital Signs Vital signs: Vital Signs Temperature 36.7 C 04/17/25 09:19 Pulse 69 04/17/25 09:19 Respiratory Rate 14 04/17/25 09:19 Blood Pressure 160/72 H 04/17/25 09:19 Pulse Oximetry 96 04/17/25 09:19 Temperature 36.7 C 04/17/25 09:30 Temperature Source Oral 04/17/25 09:30 Pulse 69 04/17/25 09:30 Respiratory Rate 14 04/17/25 09:30 Respiratory Effort Short of Breath 04/17/25 10:14 Respiratory Depth Normal 04/17/25 10:14 Blood Pressure 160/72 H 04/17/25 09:30 Blood Pressure Position Sitting 04/17/25 09:30 Pulse Oximetry 96 04/17/25 09:30 Oxygen Delivery Method Room Air 04/17/25 09:30 Oxygen Flow Rate 0 04/17/25 09:30 Lab/Test Results Lab/Test Results: Laboratory Tests Range/Units 04/17/25 09:55 WBC (4.4-10.8) 10^3/uL 4.79 RBC (4.36-5.78) 10^6/uL 2.54 L Hgb (13.5-17.5) g/dL 8.0 L Hct (40.0-50.0) % 24.1 L MCV (80-95) fL 95 MCH (27.0-33.0) pg 31.5 MCHC (32.0-36.0) % 33.2 RDW (11.8-14.1) % 14.6 H Plt Count (130-400) 10^3/uL 150 MPV (8.0-11.0) fL 9.9 Immature Gran % % 0.2 Neutrophils % % 65.0 Lymphocytes % % 14.6 Monocytes % % 11.9 Eosinophils % % 7.3 Basophils % % 1.0 Nucleated RBC % (0.0-0.3) % 0.0 Absolute Neutrophils (1.2-6.7) 10^3/uL 3.11 Absolute Lymphocytes (1.2-3.4) 10^3/uL 0.70 L Absolute Monocytes (0.1-0.8) 10^3/uL 0.57 Absolute Eosinophils (0.0-0.7) 10^3/uL 0.35 Absolute Basophils (0.0-0.2) 10^3/uL 0.05 Medical Decision Making This is a pleasant 70-year-old male with a past medical history of renal failure currently on dialysis Saturday who still does urinate, hypertension, high cholesterol, previous alcoholism, gastritis, gout, who presents today for shortness of breath. Patient was recently seen and assessed by myself on 04/05/2025 where he had a hypertensive emergency, CHF, and was transferred to [facility]. He received daily dialysis, diuresis, had an increase for his blood pressure control medications and Lasix, was discharged home 8 days ago on 04/09/2025. He had been doing well, he did receive dialysis yesterday, he had his normal 2.4 L taken off (which is the max that he will allow otherwise he gets cramping), however he noticed this morning that he was more short of breath, particularly when he was lying flat, additionally he had significant swelling in his lower extremities, and felt that he was again developing fluid overload. He came to the ER for further assessment. He denies any chest pain. No other complaints. He states that he has been avoiding excessively salty foods. He has been taking his medications as prescribed. No other modifying factors. No chest pain, headache, or other complaint. No cough. He does admit to shortness of breath when he exerts himself as well as when lying back. Exam demonstrates pitting edema 2+ and greater on the lower extremities, mild crackles in the bases. Oxygenation around 93% on room air. Differential is high for CHF exacerbation. Blood pressure is certainly more controlled on this episode, and there does not appear to be evidence of a hypertensive emergency. We will give 80 of Lasix IV, we will evaluate for other reflections of CHF, we will monitor closely and reassess. Patient may need to be transferred for dialysis as it is a Saturday. And he certainly will not improve over the weekend. 1:45 PM Chest x-ray shows evidence of opacities in the right base which may represent atelectasis or pneumonia, actomyosin there appears to be mild amount of congestive heart failure or pulmonary edema. Laboratory workup shows no white count or bandemia. Hemoglobin is 8 does not require transfusion. Creatinine is 5 as expected. Electrolytes stable, potassium normal. Patient's proBNP is notably high at 41,665. Patient was ambulated, his oxygen drops to the mid 80s between 85 and 87. Patient was given 80 of Lasix, and he has not urinated at all, bladder scan only shows 60 mL. He is not able to produce significant urine. I do not feel that this is an appropriate means of diuresis for the patient. With his fluid overload, borderline hypoxemia, and symptomatology I do feel he would benefit from urgent dialysis. I do not feel that he would be able to wait for the next 48 to 72 hours for his Saturday appointment. I did contact [facility] and spoke with Dr. Monique, she agrees with the assessment and plan, patient will be transferred to [facility] for further dialysis and management. Family agrees with plan. I have extensively reviewed the treatment plan with the patient. I have addressed all patient concerns at this time. I have also discussed the plan with the admitting physician and they agree with the current assessment and plan and have agreed to assume responsibility for the patient. All parties demonstrate verbal understanding and agreement with our assessment and plan at this time. The documentation in this chart was dictated using [employer] dictation software. Please excuse any dictation errors. At time of transfer the patient was reassessed and continued to demonstrate No signs of acute respiratory distress requiring intubation, hemodynamic instability requiring pressor support, or rapidly declining mental status. FINDINGS: Tubes, catheters and devices: Double-lumen catheter terminates in the right atrium Lungs: Opacities in the right base may represent atelectasis or pneumonia.. Pleural spaces: Unremarkable. No pleural effusion. No pneumothorax. Heart/Mediastinum: Stable cardiac silhouette Bones/joints: Healed right rib fractures IMPRESSION: Opacities in the right base may represent atelectasis or pneumonia.. Thank you for allowing us to participate in the care of your patient. Dictated and Authenticated by: Seferino Owens MD 04/17/2025 10:43 AM Eastern Time ([place] & [place]) [facility] All Active Problems (Updated 04/17/25 @ 13:53 by Car Sauceda DO) Hypoxemia (Acute) Congestive heart failure (Chronic) Acute hyperkalemia (Acute) Acute on chronic kidney failure (Acute) Hypertensive emergency (Acute) Acute hypoxic respiratory failure (Acute) Flash pulmonary edema (Acute) Nausea (Acute) Dilated cbd, acquired (Acute) Abdominal pain (Acute) Cholelithiasis (Acute) Advanced care planning/counseling discussion (Acute) End stage renal disease (Acute) Fistula placed July 2024 ON transplant list September 2024 [facility] Alcohol abuse, in remission (Acute) Rotator cuff tear arthropathy of left shoulder (Acute) Rotator cuff tear arthropathy of right shoulder (Acute) Nailbed laceration, finger (Acute) Fracture of distal phalanx of left middle finger (Acute 09/30/23) Pain, foot (Acute) Hammertoe (Acute) Hallux rigidus (Acute) Leg cramps (Acute) Hand or foot spasms (Acute) Obstructive sleep apnea (Chronic) CPAP Diverticulitis (Chronic) about 2004 .[facility] emergent with partial resection with colostomy colostomy reversed later that year no problems since Essential hypertension (Acute) 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 This did resolve with conservative care did not require any further immediate intervention, hospitalized at [facility] Gallstone (Acute) Chronic alcoholic pancreatitis (Acute) Ruptured extensor tendon of hand or wrist (Acute) EPL left thumb Anemia in chronic kidney disease (CKD) (Acute) Lumbar spondylosis (Chronic) Reflux esophagitis (Chronic 09/24/95) GERD in excess of 20 years. on PPI that entire time ?esophageal stricture hx of Barretts Hyperlipidemia (Chronic) Medical History (Updated 04/17/25 @ 13:53 by Car Sauceda DO) Systolic murmur Fatigue End stage renal failure on dialysis Anemia of chronic renal failure Chronic bilateral low back pain Vitamin D deficiency Gastritis Exocrine pancreatic insufficiency Thoracic arthritis Palliative care encounter Alcohol abuse recurrent, hospitalized 2020 Acute kidney injury 10/2021-associated with acute illness/dehydration Chronic kidney disease, stage 4 (severe) 2021, Cr -2.1-2.9 History of basal cell cancer (~06/2019) Left ear Gout Surgical History H/O partial resection of colon s/p ostomy reversal Replacement of total knee joint 2012-RIGHT STRESS TEST (~01/2003) Family History Mother Breast cancer Father Heart disease Hyperlipidemia Sister Alcohol abuse Depression Sister Alcohol abuse Sister No problems noted. Brother Hyperlipidemia Brother No problems noted. Brother No problems noted. Brother No problems noted. Brother No problems noted. Maternal Grandfather No problems noted. Paternal Grandfather Alcohol abuse Hyperlipidemia Maternal Grandmother Alcohol abuse Paternal Grandmother Hyperlipidemia Stroke Son Testicular cancer Son No problems noted. Son No problems noted. Son No problems noted. Social History Smoking/Tobacco Use Status: Former Tobacco Use tobacco type: cigarettes Quit Date: 05/27/73 Second Hand Exposure: No Smoking risk assessment performed?: Yes Alcohol Intake: former Counseling given: Yes Drug use: Never Substance use type: does not use Details: no longer drinks - goes to AA meetings Household members: spouse Housing: house Communication Needs: Hard of Hearing current occupation: [employer] Pets and animals: Yes Pets and animals: dog(s) Duration: > 90 minutes/day Frequency: daily Hoa/Restorationism: Yarsanism Special hoa needs: No Do you feel safe at home: Yes Do you feel safe in your relationship?: Yes
[2025-04-17 10:20] LABS: INR 1.0 (0.9-1.1); PTT Activated 29.1 sec (20.6-30.2); Prothrombin Time 10.3 sec (9.1-11.1)
[2025-04-17 10:22] LABS: Troponin I 17 ng/L (<54)
[2025-04-17 10:37] LABS: ALT 13 U/L (10-49); AST 12 U/L (<34); Albumin 4.2 g/dL (3.4-5.0); Alkaline Phosphatase 57 U/L (46-116); Anion Gap 9.3 mmol/L (3-11); BUN 27 mg/dL (9-23); Bilirubin, Total 0.30 mg/dL (0.2-1.2); CO2 33.2 mmol/L (20.0-31.0); Calcium 8.5 mg/dL (8.3-10.6); Chloride 92 mmol/L (98-107); Glucose 86 mg/dL (74-106); Potassium 4.8 mmol/L (3.5-5.1); Sodium 135 mmol/L (136-145); Total Protein 6.5 g/dL (5.7-8.2)
--- NOTE | 2025-04-17 10:43 | DI.VRAD_ITS ---
PROCEDURE INFORMATION: Exam: XR Chest Exam date and time: 04/17/2025 10:20 AM Age: 70 years old Clinical indication: Shortness of breath; Additional info: SOB, suspect chf TECHNIQUE: Imaging protocol: Radiologic exam of the chest. Views: 1 view. COMPARISON: CR XR PORTABLE CHEST AP 04/05/2025 5:05 AM FINDINGS: Tubes, catheters and devices: Double-lumen catheter terminates in the right atrium Lungs: Opacities in the right base may represent atelectasis or pneumonia.. Pleural spaces: Unremarkable. No pleural effusion. No pneumothorax. Heart/Mediastinum: Stable cardiac silhouette Bones/joints: Healed right rib fractures IMPRESSION: Opacities in the right base may represent atelectasis or pneumonia.. Dictated and Authenticated by: Seferino Owens MD. Orderin Komal Yoon MD
[2025-04-17 11:13] LABS: Troponin I 18 ng/L (<54)
[2025-04-17 13:09] LABS: Troponin I 18 ng/L (<54)
[2025-04-17] MEDS: Furosemide 40 MG/4 ML VIAL IVP (17:10)
== END 2025-04-17 17:47 | disposition short-term general hospital (02) ==
PROVIDERS: Student in an Organized Health Care Education/Training Program; Emergency Provider General Practice; PCP Student in an Organized Health Care Education/Training Program
DX: I50.9 Heart failure, unspecified (principal); R09.02 Hypoxemia; R60.0 Localized edema; Z99.2 Dependence on renal dialysis
CPT/HCPCS: 99285 ×2; 96374; 96376; 36415; 51798; 80053; 86850; 86900; 86901; 93005; 71045; 83880; 84484; 85025; 85610; 85730; 93010; J1938

== ENCOUNTER 2025-05-18 07:54 | Outpatient (CLI) | payer MEDICARE, SELFPAY ==
--- NOTE | 2025-05-18 07:45 | RT.EKG_ITS ---
APPROVED REPORT Exam: Resting ECG Reason for Exam: cardiac evaluation Patient Location: O HR:64 bpm ECG Measurements Heart Rate 64 AXIS AZ 185 P 30 QRSd 115 QRS -25 QT 401 T 34 QTc 414 Conclusion Sinus rhythm...normal P axis, V-rate 50- 99 Incomplete RBBB
== END 2025-05-18 07:55 | disposition home or self-care (01) ==
LOC: DI.CARD 07:55
PROVIDERS: PCP Student in an Organized Health Care Education/Training Program; Visit Provider Internal Medicine Cardiovascular Disease
DX: I50.30 Unspecified diastolic (congestive) heart failure (principal); I45.10 Unspecified right bundle-branch block
CPT/HCPCS: 93010

== ENCOUNTER → 2025-05-18 11:13 | Outpatient (BNVA) | payer MEDICARE, SELFPAY | PROVIDERS: PCP Student in an Organized Health Care Education/Training Program; Referring Provider Student in an Organized Health Care Education/Training Program; Visit Provider Internal Medicine Cardiovascular Disease | DX: I50.30 Unspecified diastolic (congestive) heart failure (principal); N18.6 End stage renal disease | CPT/HCPCS: 99214; 93005 ==